=== PATIENT | female | born 1940 ===

== ENCOUNTER 2021-07-25 05:33 | Emergency (ER) | payer OTHER, BC ==
--- OUTSIDE RECORDS SUMMARY | 2021-07-25 05:44 | XMS REPORT | Continuity of Care Document ---
:1940 Author Organization [facility] t Address [address] [place] [address] Care Team Providers Name Role Phone Ines Quiles Primary Care Physician Moshe Mckeon Attending Clinician DR SUNDEEP Attending Clinician Unavailable QAMAR FLOR Attending Clinician Unavailable CORKY Attending Clinician Unavailable DR SUNDEEP Admitting Clinician Unavailable DR CHACHO OBREJI Admitting Clinician Unavailable Payers Payer Name Policy Type Policy Number Effective Date Expiration Date S ource Problems Condition Condition Condition Status Onset Resolution Last Treating Co mments Source Name Details Category Date Date Treatment Clinician Date FALL Diagnosis Active 2021-03-01 Mem oria 02-28 03:13:00 l FALL 00:00: [place] 00 Active 02/28/2021 [facility] FREQUENT Diagnosis Active 2021-03-02 M emoria FALLS 02-28 12:54:00 l FREQUENT 00:00: Johnny n FALLS 00 Active 02/28/2021 [facility] Pain in Pain in Problem Active [place] pelvis Pelvis 2-28 da 00:00: Medical 00 Group Vulval Vulval Problem Active [place] eczema Eczema 2-28 da 00:00: Medical 00 Group Pressure Pressure Problem Active [place] [facility] ulcer of Ulcer of 2-07 da ear Ear 00:00: Medical 00 Group Restless Restless Problem Active [place] [facility] legs Legs 8-21 da 00:00: Medical 00 Group Partial Partial Problem Active [place] obstructio Obstructio 8 da n of small n of Small 00:00: Me dical bowel Bowel 00 Group Thoracic Thoracic Problem Active [facility] [facility] back pain Back Pain 8 da 00:00: Medical Group Pain of Pain of Problem Active [place] left hip Left Hip 7 da joint Joint 00:00: Medical Group Persistent Persistent Problem Active M [facility] cough Cough 05-27 da 00:00: Medical Group Dyspareuni Dyspareuni Problem Active M [facility] a a 3 da 00:00: Medical Group 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 Vaginitis 3 da 00:00: Medical Group REPEATED Diagnosis Active 2021-03-02 M emoria FALLS 12:54:00 l REPEATED Johnny n FALLS Active [facility] Seizures Seizures Problem Active Unive rs [facility] [place] Phys[facility] ans No known No known Disease Unive rs active active ity of problems problems [facility] Hypothyroi Hypothyroi Problem Active M [facility] dism dism da Medical Group Hypovolemi Hypovolemi Problem Active [facility] a a [facility] Pernicious Pernicious Problem Active M [facility] anemia Anemia [facility] Low blood Low Blood Problem Active [facility] pressure Pressure da Medical Group Acute Acute Problem Active [place] pharyngiti Pharyngiti da s s Medical Group Pharyngiti Pharyngiti Problem Active M [facility] s s da Medical Group Upper Upper Problem Active [place] respirator Respirator da y y Medical infection Infection Grou p Bronchitis Bronchitis Problem Active [facility] Group Periapical Periapical Problem Active M [facility] abscess Abscess da without without Medical sinus Sinus Group tract Tract Urinary Urinary Problem Active [place] tract Tract da infectious Infectious Me dical disease Disease Group Cellulitis Cellulitis Problem Active [facility] 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 K[facility] Medical Group Hip pain Hip Pain Problem Active [facility] Muscle Muscle Problem Active [facility] pain Pain [facility] Fatigue Fatigue Problem Active [facility] Cough Cough Problem Active [facility] Superficia Superficia Problem Active M [facility] l injury l Injury da of lower of Lower Medica l limb Limb Group Disorder Disorder Problem Active [place] [facility] of trunk of [place] [facility] Allergies, Adverse Reactions, Alerts Allergy Allergy Status Severity Reaction(s) Onset Inactive Treating Comm ents Source Name Type Date Date Clinician Karey Neumanni Active Other - See 2016-11 [facility] U nivers in ty to comments 12-05 failure ity of adverse 00:00: [place] reaction 00 Medical s Branch Phenerga Allergy Active Moderate Other [facility] [facility] Vancomyc Allergy Active [facility] ADHESIVE Allergy Active [facility] TAPE [facility] Social History Social Habit Start Date Stop Date Quantity Comments Source Exposure to Not sure [facility] SARS-CoV-2 (event) Medica l Branch Tobacco use and 2021-07-12 2021-07-12 Never used [facility] exposure 00:00:00 00:00:00 [facility] Sex Ass[birth year] At [birth year] [facility] 00:00:00 00:00:00 [facility] Branch Smoking Status Start Date Stop Date Source Former smoker 2021-07-12 00:00:00 2021-07-12 00:00:00 [facility] [place] Medications Ordered Filled Start Stop Current Ordering Indication Dosage Frequency Signature Comments Components Source Medication Medication Date Date Medication? Clinician (SIG) Name Name clopidogreL Yes 75mg Take 75 mg Univers (PLAVIX) 75 07-12 by mouth ity of mg tablet 16:04: daily. [address] apixaban Yes 2.5mg Take 2.5 Univ ers (ELIQUIS) 9- mg by ity of 2.5 mg 16:04: mouth 2 [place] tablet 45 (two) Medical times Branch daily. aspirin 81 Yes 81mg Take 81 mg U nivers mg Cap 07-12 by mouth ity of 16:04: daily. [address] clopidogreL Yes 75mg Take 75 mg Univers (PLAVIX) 75 07-12 by mouth ity of mg tablet 16:04: daily. [address] apixaban Yes 2.5mg Take 2.5 Univ ers (ELIQUIS) 9- mg by ity of 2.5 mg 16:04: mouth 2 [place] tablet 45 (two) Medical times Branch daily. aspirin 81 2020-0 Yes 81mg Take 81 mg U nivers mg Cap 07-12 by mouth ity of 16:04: daily. [address] levETIRAcet levETIRAcet 2019-0 Yes HERMELINDA TAKE 1 Univers am 250 MG am 250 MG 4-23 FERRENDELL TABLET BY ity of Oral Tablet Oral Tablet 00:00: I M.D. MOUTH [place] 00 TWICE Physici DAILY ans diclofenac 2017-0 Yes 75mg Take 1 Unive rs 75 mg EC 6-29 tablet by ity of tablet 00:00: mouth 2 [place] 00 (two) Medical times Branch daily with meals. diclofenac 0 Yes 75mg Take 1 Unive rs 75 mg EC 6-29 tablet by ity of tablet 00:00: mouth 2 [place] (two) Medical times Branch daily with meals. metoprolol Yes 25mg Take 25 mg U nivers succinate 3-09 by mouth ity of XL 25 mg 24 14:38: [place]. [place] tablet 08 [facility] Branch clonazePAM Yes .5mg Take 0.5 Uni vers (KLONOPIN) 3-09 mg by ity of 0.5 mg 14:38: mouth 3 [place] tablet 08 (three) Medical times Branch daily. metoprolol Yes 25mg Take 25 mg U nivers succinate 3-09 by mouth ity of XL 25 mg 24 14:38: [place]. [place] tablet [address] [place] [address] clonazePAM Yes .5mg Take 0.5 Uni vers (KLONOPIN) 3-09 mg by ity of 0.5 mg 14:38: mouth 3 [place] tablet 08 (three) Medical times Branch daily. levothyroxi 2017- Yes TK 1 T PO U nivers ne 112 mcg 2-05 QD ity of tablet 00:00: [place] [facility] Branch levothyroxi 2017-0 Yes TK 1 T PO U nivers ne 112 mcg 2-05 QD ity of tablet 00:00: [place] [facility] Branch metoprolol 2017- Yes TK 1 T PO Un mesfin tartrate 25 1-07 BID ity of mg tablet 00:00: [place] [facility] Branch metoprolol 2017- Yes TK 1 T PO Un mesfin tartrate 25 -07 BID ity of mg tablet 00:00: [address] Branch albuterol albuterol No albuterol [place] sulfate HFA sulfate HFA sulfate da 90 90 HFA 90 Medical mcg/actuati mcg/actuati mcg/actuat Group on aerosol on aerosol ion inhaler inhaler aerosol INHALE 2 INHALE 2 inhaler PUFFS BY PUFFS BY INHALE 2 MOUTH EVERY MOUTH EVERY PUFFS BY 4 HOURS 4 HOURS MOUTH NEEDED FOR NEEDED FOR EVERY 4 30 DAYS. 30 DAYS. HOURS NEEDED FOR 30 DAYS. amiodarone amiodarone No amiodarone [place] 200 mg 200 mg 200 mg da tablet TAKE tablet TAKE tablet Medical ONE (1) ONE (1) TAKE ONE Group TABLET(S) TABLET(S) (1) BY MOUTH BY MOUTH TABLET(S) EVERY DAY. EVERY DAY. BY MOUTH EVERY DAY. aspirin 81 aspirin 81 No 1 Q1D aspirin 81 [place] mg mg mg da tablet,josesito tablet,josesito tablet,del Medical yed release yed release ayed G roup Take 1 Take 1 release tablet tablet Take 1 every day every day tablet by oral by oral every day route. route. by oral route. atorvastati atorvastati No atorvastat [place] n 40 mg n 40 mg in 40 mg da tablet TAKE tablet TAKE tablet Medical ONE (1) ONE (1) TAKE ONE Group TABLET(S) TABLET(S) (1) BY MOUTH BY MOUTH TABLET(S) ONCE A DAY. ONCE A DAY. BY MOUTH ONCE A DAY. clonazepam clonazepam No clonazepam [place] 1 mg tablet 1 mg tablet 1 mg d a TAKE 1 TAKE 1 tablet Medical TABLET BY TABLET BY TAKE 1 Michelle up MOUTH THREE MOUTH THREE TABLET BY TIMES A DAY TIMES A DAY MOUTH THREE TIMES A DAY clopidogrel clopidogrel No clopidogre [place] 75 mg 75 mg l 75 mg da tablet one tablet one tablet one Medical tab po qd tab po qd tab po qd Group Eliquis 2.5 Eliquis 2.5 No Eliquis [place] mg tablet mg tablet 2.5 mg da TAKE 1 TAKE 1 tablet Medical TABLET BY TABLET BY TAKE 1 Michelle up MOUTH TWICE MOUTH TWICE TABLET BY A DAY A DAY MOUTH TWICE A DAY furosemide furosemide No furosemide [place] 20 mg 20 mg 20 mg da tablet TAKE tablet TAKE tablet Medical 1 TABLET BY 1 TABLET BY TAKE 1 Group MOUTH EVERY MOUTH EVERY TABLET BY DAY DAY MOUTH EVERY DAY gabapentin gabapentin No gabapentin [place] 300 mg 300 mg 300 mg da capsule capsule capsule Medica l TAKE 1 TAKE 1 TAKE 1 Group CAPSULE BY CAPSULE BY CAPSULE BY MOUTH TWICE MOUTH TWICE MOUTH DAILY FOR DAILY FOR TWICE 90 DAYS 90 DAYS DAILY FOR 90 DAYS hydroxyzine hydroxyzine No hydroxyzin [place] pamoate 25 pamoate 25 e pamoate da mg capsule mg capsule 25 mg Me dical TAKE 1 TAKE 1 capsule Group CAPSULE BY CAPSULE BY TAKE 1 MOUTH EVERY MOUTH EVERY CAPSULE BY DAY DAY MOUTH NEEDED NEEDED EVERY DAY NEEDED levetiracet levetiracet No levetirace [place] am 250 mg am 250 mg guzman 250 mg da tablet TAKE tablet TAKE tablet Medical ONE (1) ONE (1) TAKE ONE Group TABLET(S) TABLET(S) (1) BY MOUTH BY MOUTH TABLET(S) TWICE A TWICE A BY MOUTH DAY. DAY. TWICE A DAY. levothyroxi levothyroxi No levothyrox [place] ne 88 mcg ne 88 mcg ine 88 mcg da tablet TAKE tablet TAKE tablet Medical 1 TABLET BY 1 TABLET BY TAKE 1 Group MOUTH EVERY MOUTH EVERY TABLET BY DAY DAY MOUTH EVERY DAY nitrofurant nitrofurant No nitrofuran [place] oin oin toin da monohydrate monohydrate monohydrat Medical /macrocryst /macrocryst e/macrocry Group als 100 mg als 100 mg stals 100 capsule capsule mg capsule Take 1 Take 1 Take 1 capsule capsule capsule every 12 every 12 every 12 hours by hours by hours by oral route oral route oral route for 7 days. for 7 days. for 7 days. nystatin nystatin No nystatin [place] 100,000 100,000 100,000 da unit/gram unit/gram unit/gram Medical topical topical topical Group cream APPLY cream APPLY cream TO AFFECTED TO AFFECTED APPLY TO AREA TWICE AREA TWICE AFFECTED A DAY A DAY AREA TWICE A DAY pantoprazol pantoprazol No pantoprazo [place] e 40 mg e 40 mg le 40 mg da tablet,josesito tablet,josesito tablet,del Medical yed release yed release ayed G roup TAKE 1 TAKE 1 release TABLET BY TABLET BY TAKE 1 MOUTH EVERY MOUTH EVERY TABLET BY DAY DAY MOUTH EVERY DAY potassium potassium No potassium [place] chloride ER chloride ER chloride da 10 mEq 10 mEq ER 10 mEq Medica l capsule,ext capsule,ext capsule,ex Group ended ended tended release release release TAKE 1 TAKE 1 TAKE 1 CAPSULE BY CAPSULE BY CAPSULE BY MOUTH EVERY MOUTH EVERY MOUTH DAY DAY EVERY DAY tobramycin tobramycin No tobramycin [place] 0.3 % eye 0.3 % eye 0.3 % eye da drops drops drops Medical INSTILL ONE INSTILL ONE INSTILL Group (1) DROP (1) DROP ONE (1) INTO INTO DROP INTO AFFECTED AFFECTED AFFECTED EYE(S) BY EYE(S) BY EYE(S) BY OPHTHALMIC OPHTHALMIC OPHTHALMIC ROUTE EVERY ROUTE EVERY ROUTE 1 HOUR FOR 1 HOUR FOR EVERY 1 4 HOURS, 4 HOURS, HOUR FOR 4 THEN 1 DROP THEN 1 DROP HOURS, EVERY 4 EVERY 4 THEN 1 HOURS WHILE HOURS WHILE DROP EVERY AWAKE. AWAKE. 4 HOURS WHILE AWAKE. Vitamin D3 Vitamin D3 No Vitamin D3 [place] (calcium (calcium (calcium da cit-phos) cit-phos) cit-phos) Medical 800 I.U. 800 I.U. 800 I.U. Michelle up tid tid tid Immunizations Ordered Immunization Filled Immunization Date Status Commen ts Source Name Name Tdap Tdap 2021-03-25 Completed [place] 00:00:00 Medical Group influenza, influenza, 2019-08-11 Completed [place] injectable, injectable, 00:00:00 Medical Grou p quadrivalent quadrivalent influenza, high dose influenza, high dose 2013-08-26 Completed [place] seasonal seasonal 00:00:00 Medical Group zoster live zoster live 2013-08-26 Completed [place] 00:00:00 Medical Group pneumococcal pneumococcal 2010-11-13 Completed [place] polysaccharide PPV23 polysaccharide PPV23 00:00:00 Medical Group Vital Signs Vital Name Observation Time Observation Value Comments Source Height 2021-07-24 00:00:00 65 [in_i] [facility] BMI (Body Mass 2021-07-24 00:00:00 21 kg/m2 [facility] clinician Medical Index) Group Body Weight 2021-07-24 00:00:00 2016 [oz_av] [facility] Systolic blood 2021-07-12 14:37:00 98 mm[Hg] Univer tadeoy of pressure [facility] Diastolic blood 2021-07-12 14:37:00 58 mm[Hg] Unive [facility] Heart rate 2021-07-12 14:37:00 75 /min [facility] Body temperature 2021-07-12 14:37:00 36.28 Jaki [facility] Respiratory rate 2021-07-12 14:37:00 16 /min [facility] Body height 2021-07-12 14:37:00 165.1 cm [facility] Body weight 2021-07-12 14:37:00 55.792 kg [facility] BMI 2021-07-12 14:37:00 20.47 kg/m2 [facility] Oxygen saturation in 2021-07-12 14:37:00 96 /min [facility] Arterial blood by [facility] Pulse oximetry Branch BP Diastolic 2021-06-19 00:00:00 55 mm[Hg] [facility] Height 2021-06-19 00:00:00 65 [in_i] [facility] BMI (Body Mass 2021-06-19 00:00:00 21.1 kg/m2 [facility] Medical Index) Group BP Systolic 2021-06-19 00:00:00 125 mm[Hg] [facility] Body Weight 2021-06-19 00:00:00 126.9 [lb_av] [facility] BP Diastolic 2021-05-31 00:00:00 61 mm[Hg] [facility] Height 2021-05-31 00:00:00 65 [in_i] [facility] BMI (Body Mass 2021-05-31 00:00:00 21.2 kg/m2 [facility] Medical Index) Group BP Systolic 2021-05-31 00:00:00 127 mm[Hg] [facility] Body Weight 2021-05-31 00:00:00 2038 [oz_av] [facility] Height 2021-03-22 00:00:00 65 [in_i] [facility] BMI (Body Mass 2021-03-22 00:00:00 20.8 kg/m2 [facility] rn clinician Medical Index) Group Body Weight 2021-03-22 00:00:00 2000 [oz_av] [facility] BP Diastolic 2021-02-06 00:00:00 63 mm[Hg] [facility] Height 2021-02-06 00:00:00 65 [in_i] [facility] BMI (Body Mass 2021-02-06 00:00:00 20.9 kg/m2 [facility] Medical Index) Group BP Systolic 2021-02-06 00:00:00 116 mm[Hg] [facility] Body Weight 2021-02-06 00:00:00 125.3 [lb_av] [facility] Height 2021-01-16 00:00:00 65 [in_i] [facility] BMI (Body Mass 2021-01-16 00:00:00 20 kg/m2 [facility] Medical Index) Group Body Weight 2021-01-16 00:00:00 1920 [oz_av] [facility] Height 2020-12-01 00:00:00 65 [in_i] [facility] BMI (Body Mass 2020-12-01 00:00:00 20 kg/m2 [facility] Medical Index) Group Body Weight 2020-12-01 00:00:00 1920 [oz_av] [facility] Height 2020-11-08 00:00:00 65 [in_i] [facility] BMI (Body Mass 2020-11-08 00:00:00 20 kg/m2 [facility] Medical Index) Group Body Weight 2020-11-08 00:00:00 1920 [oz_av] [facility] Height 2020-08-30 00:00:00 65 [in_i] [facility] BMI (Body Mass 2020-08-30 00:00:00 20 kg/m2 [facility] Medical Index) Group Body Weight 2020-08-30 00:00:00 1920 [oz_av] [facility] Height 2020-08-15 00:00:00 65 [in_i] [facility] BMI (Body Mass 2020-08-15 00:00:00 20 kg/m2 [facility] Medical Index) Group Body Weight 2020-08-15 00:00:00 1920 [oz_av] [facility] BP Diastolic 2020-01-21 00:00:00 64 mm[Hg] [facility] Height 2020-01-21 00:00:00 65 [in_i] [facility] BMI (Body Mass 2020-01-21 00:00:00 21 kg/m2 [facility] rn clinician Medical Index) Group BP Systolic 2020-01-21 00:00:00 110 mm[Hg] [facility] Body Weight 2020-01-21 00:00:00 126 [lb_av] [facility] BP Diastolic 2020-01-18 00:00:00 62 mm[Hg] [facility] Height 2020-01-18 00:00:00 65 [in_i] [facility] BMI (Body Mass 2020-01-18 00:00:00 21.1 kg/m2 [facility] rn clinician Medical Index) Group BP Systolic 2020-01-18 00:00:00 106 mm[Hg] [facility] Body Weight 2020-01-18 00:00:00 2024 [oz_av] [facility] BP Diastolic 2020-01-07 00:00:00 67 mm[Hg] [facility] Height 2020-01-07 00:00:00 65 [in_i] [facility] BMI (Body Mass 2020-01-07 00:00:00 20.8 kg/m2 [facility] rn clinician Medical Index) Group BP Systolic 2020-01-07 00:00:00 117 mm[Hg] [facility] Body Weight 2020-01-07 00:00:00 124.7 [lb_av] [facility] BP Diastolic 2019-10-27 00:00:00 61 mm[Hg] [facility] Height 2019-10-27 00:00:00 65 [in_i] [facility] BMI (Body Mass 2019-10-27 00:00:00 20 kg/m2 [facility] rn clinician Medical Index) Group BP Systolic 2019-10-27 00:00:00 103 mm[Hg] [facility] Body Weight 2019-10-27 00:00:00 1923 [oz_av] [facility] BP Diastolic 2019-10-05 00:00:00 74 mm[Hg] [facility] Height 2019-10-05 00:00:00 65 [in_i] [facility] BMI (Body Mass 2019-10-05 00:00:00 20.5 kg/m2 [facility] Medical Index) Group BP Systolic 2019-10-05 00:00:00 130 mm[Hg] [facility] Body Weight 2019-10-05 00:00:00 1969 [oz_av] [facility] BP Diastolic 2019-08-10 00:00:00 67 mm[Hg] [facility] Height 2019-08-10 00:00:00 65 [in_i] [facility] BMI (Body Mass 2019-08-10 00:00:00 20.7 kg/m2 [facility] Medical Index) Group BP Systolic 2019-08-10 00:00:00 115 mm[Hg] [facility] Body Weight 2019-08-10 00:00:00 1993 [oz_av] [facility] BP Diastolic 2019-06-11 00:00:00 64 mm[Hg] [facility] Height 2019-06-11 00:00:00 65 [in_i] [facility] BMI (Body Mass 2019-06-11 00:00:00 20 kg/m2 [facility] Medical Index) Group BP Systolic 2019-06-11 00:00:00 113 mm[Hg] [facility] Body Weight 2019-06-11 00:00:00 120 [lb_av] [facility] BP Diastolic 2019-06-09 00:00:00 60 mm[Hg] [facility] Height 2019-06-09 00:00:00 65 [in_i] [facility] BMI (Body Mass 2019-06-09 00:00:00 20.3 kg/m2 [facility] Medical Index) Group BP Systolic 2019-06-09 00:00:00 111 mm[Hg] [facility] Body Weight 2019-06-09 00:00:00 1947.2 [oz_av] [facility] Medical Group BP Diastolic 2019-05-12 00:00:00 71 mm[Hg] [facility] Height 2019-05-12 00:00:00 65 [in_i] [facility] BMI (Body Mass 2019-05-12 00:00:00 19.3 kg/m2 [facility] rn clinician Medical Index) Group BP Systolic 2019-05-12 00:00:00 118 mm[Hg] [facility] Body Weight 2019-05-12 00:00:00 1856 [oz_av] [facility] BP Diastolic 2019-04-09 00:00:00 76 mm[Hg] [facility] Height 2019-04-09 00:00:00 65 [in_i] [facility] BMI (Body Mass 2019-04-09 00:00:00 21 kg/m2 [facility] rn clinician Medical Index) Group BP Systolic 2019-04-09 00:00:00 132 mm[Hg] [facility] Body Weight 2019-04-09 00:00:00 126 [lb_av] [facility] BP Diastolic 2019-03-03 00:00:00 74 mm[Hg] [facility] Height 2019-03-03 00:00:00 65 [in_i] [facility] BMI (Body Mass 2019-03-03 00:00:00 21 kg/m2 [facility] rn clinician Medical Index) Group BP Systolic 2019-03-03 00:00:00 126 mm[Hg] [facility] Body Weight 2019-03-03 00:00:00 2016 [oz_av] [facility] BP Diastolic 2019-02-26 00:00:00 65 mm[Hg] [facility] Height 2019-02-26 00:00:00 65 [in_i] [facility] BMI (Body Mass 2019-02-26 00:00:00 21 kg/m2 [facility] rn clinician Medical Index) Group BP Systolic 2019-02-26 00:00:00 102 mm[Hg] [facility] Body Weight 2019-02-26 00:00:00 2019 [oz_av] [facility] BP Diastolic 2019-02-03 00:00:00 62 mm[Hg] [facility] Height 2019-02-03 00:00:00 65 [in_i] [facility] BMI (Body Mass 2019-02-03 00:00:00 21.2 kg[facility] BP Systolic 2019-02-03 00:00:00 141 mm[Hg] [facility] Body Weight 2019-02-03 00:00:00 2037 [oz_av] [facility] BP Diastolic 2019-01-21 00:00:00 52 mm[Hg] [facility] Height 2019-01-21 00:00:00 65 [in_i] [facility] BMI (Body Mass 2019-01-21 00:00:00 20.8 kg/m2 [facility] BP Systolic 2019-01-21 00:00:00 113 mm[Hg] [facility] Body Weight 2019-01-21 00:00:00 2000 [oz_av] [facility] BP Diastolic 2019-01-01 00:00:00 66 mm[Hg] [facility] Height 2019-01-01 00:00:00 65 [in_i] [facility] BMI (Body Mass 2019-01-01 00:00:00 20.7 kg/m2 [facility] BP Systolic 2019-01-01 00:00:00 106 mm[Hg] [facility] Body Weight 2019-01-01 00:00:00 1991 [oz_av] [facility] BP Diastolic 2018-12-05 00:00:00 63 mm[Hg] [facility] Height 2018-12-05 00:00:00 65 [in_i] [facility] BMI (Body Mass 2018-12-05 00:00:00 20.2 kg/m2 [facility] BP Systolic 2018-12-05 00:00:00 116 mm[Hg] [facility] Body Weight 2018-12-05 00:00:00 1941 [oz_av] [facility] Procedures Procedure Date / Time Performing Clinician Source Performed POCT URINALYSIS AUTO 2021-07-12 15:33:00 Julia Matson [facility] CT, thoracic spine, w/o 2021-06-02 00:00:00 Jose C mancia [facility] contrast [facility] MRI, thoracic spine, w/o 2021-06-01 00:00:00 [facility] XR, ankle 2021-05-31 00:00:00 [facility] XR, thoracic spine 2021-05-31 00:00:00 [facility] XR, abdomen 2020-11-08 00:00:00 [facility] XR, hip, unilateral 2020-08-19 00:00:00 [facility] Procedure on Heart 2020-04-11 00:00:00 [facility] XR, foot 2019-06-09 00:00:[address] [facility] [address] [address], pelvis, w/o contrast 2019-03-03 00:00:00 [facility] Shoulder Joint Surgery [facility] Removal of Thyroid [facility] Bladder Suspension [facility] Oophorectomy [facility] Partial Hysterectomy [facility] Correction of Scoliosis [facility] Procedure on Hip [facility] Hernia Repair [facility] Stomach Surgery Procedure [facility] Cholecystectomy [facility] Appendectomy [facility] Plan of Care Planned Activity Planned Date Details Comments Source Future Appointment 2021-08-23 Reginald Krueger 00:00:[address] [place] [address] 201; , [place] [address] Encounters Start End Encounter Admission Attending Care Care Encounter Source Date/Time Date/Time Type Type Clinicians Facility Department ID 2021-07-25 Outpatient [id number] Memoria 05:36:05 [id number] Syed [id number] 2021-07-24 2021-07-24 Umair MM [place] - [id number] [place] 00:00:00 00:00:00 [facility] MD: [address] [place] [address] [address], [place] [address] , Ph. 2021-07-14 2021-07-14 Case Gramm, [facility] [id number] Univers 00:00:00 00:00:00 Management Julia Sullivan [id number] [id number] [phone] Ar dical nal 204 [facility] 2021-07-12 2021-07-12 Office Gramm, [facility] [id number] Univers 09:07:49 10:57:16 Visit Julia Sullivan [id number] [id number] [phone] Ar dical nal 204 [facility] 2021-06-19 2021-06-19 Spencer [facility] [place] - [id number] [place] at[place] 00:00:00 00:00:00 Discovery marley Lawrence MD: [address] [place] [address] [address], [place] [address] , Ph. [phone] 2021-05-31 2021-05-31 Umair ACE[place] - [id number] [place] 00:00:00 00:00:00 Reagan Miles MD: [address] [place] [address] 201, [place] [address] , Ph. 2021-03-22 2021-03-22 Umair [facility] [place] - [id number] [place] 00:00:00 00:00:00 Reagan Miles MD: [address] [place] [address] 201, [place] [address] , Ph. 2021-02-06 2021-02-06 Spencer [place] - [id number] [place] 00:00:00 00:00:00 Discovery marley Lawrence MD: [address] [place] [address] 101, [place] [address] , Ph. [phone] 2021-01-16 2021-01-16 Umair [facility]G [place] - [id number] [place] 00:00:00 00:00:00 Reagan Miles Medical MD: [address] [place] [address] 201, [place] [address] , Ph. 2020-12-01 2020-12-01 Mariela MMG [place] - [id number] [place] 00:00:00 00:00:00 Amy Fonseca Medical Medical CRYSTAL SLICER: [address] [place] [address], [place] [address] , Ph. 2020-11-08 2020-11-08 Umair [facility] [place] - [id number] [place] 00:00:00 00:00:00 Reagan Miles MD: [address] [place] [address] 201, [place] [address] , Ph. 2020-08-30 2020-08-30 Umair [facility] [place] - [id number] [place] 00:00:00 00:00:00 Reagan Miles Medical MD: [address] [place] [address] 201, [place] [address] , Ph. 2020-08-15 2020-08-15 Umair MM [place] - [id number] [place] 00:00:00 00:00:00 Reagan Miles Medical MD: [address] [place] [address] 201, [place] [address] , Ph. 2020-07-26 2020-07-26 Outpatient Anamika URBANO [facility] [id number] [place] 09:30:00 09:30:00 [facility] 2020-07-15 2020-07-19 Inpatient Anisa FLOR [facility] [id number] [place] 00:53:00 16:11:[address] [facility] 2020-03-08 2020-03-08 [facility] CORKY [facility] - [id number] Univers 12:30:00 12:30:00 barbara , Lucas SHEN M.D. [facility] HERMELINDA [place] Amrit dawkins M.D. [facility] 2020-02-25 2020-02-25 Umair ACE[place] - [id number] [place] 00:00:00 00:00:00 Armani Motta Medical Medical MD: [address] [place] [address] 201, [place] [address] , Ph. 2020-02-16 2020-02-16 Umair ACE[place] - [id number] [place] 00:00:00 00:00:00 Reagan Miles Medical MD: [address] [place] [address] 201, [place] [address] , Ph. 2020-01-21 2020-01-21 Magdy ACE[place] - [id number] [place] 00:00:00 00:00:00 Robert Jin MD: Medical Medica l [address] [place] [address] [address], [place] [address] , Ph. [phone] 2020-01-18 2020-01-18 Umair ACE[place] - [id number] [place] 00:00:00 00:00:00 Reagan Miles Medical MD: [address] [place] [address] 201, [place] [address] , Ph. 2020-01-07 2020-01-07 Moriah Hernandez [facility] [place] - [id number] [place] 00:00:00 00:00:00 Discovery Edouard Bolivar: [facility] [place] 2[place] Medical Medica [facility] [address], [place] [address] , Ph. [phone] 2019-10-27 2019-10-27 Umair ACE[place] - [id number] [place] 00:00:00 00:00:00 Reagan Miles MD: [address] [place] [address] Family [address], [place] [address] , Ph. 2019-10-05 2019-10-05 Umair [facility] [place] - [id number] [place] 00:00:00 00:00:00 Reagan Miles MD: [address] [place] [address] [address], [place] [address] , Ph. 2019-08-10 2019-08-10 Umair [facility] [place] - [id number] [place] 00:00:00 00:00:00 Reagan Miles MD: [address] [place] [address] [address], [place] [address] , Ph. 2019-06-11 2019-06-11 Magdy [facility] [place] - [id number] [place] 00:00:00 00:00:00 Robert Jin MD: Medical Medica l [address] [place] [address], General [address], [place] [address] , Ph. [phone] 2019-06-09 2019-06-09 Umair [facility] [place] - [id number] [place] 00:00:00 00:00:00 Reagan Miles MD: [address] [place] [address] [address], [place] [address] , Ph. 2019-05-12 2019-05-12 Umair [facility] [place] - [id number] [place] 00:00:00 00:00:00 Reagan Miles MD: [address] [place] [address] Family [address], [place] [address] , Ph. 2019-04-09 2019-04-09 Magdy [place] - [id number] [place] 00:00:00 00:00:00 Robert Jin MD: Medical Medica l [address] [place] [address], General [address], [place] [address] , Ph. [phone] 2019-03-03 2019-03-03 Umair ACE[place] - [id number] [place] 00:00:00 00:00:00 Reagan Miles MD: [address] [place] [address], Family [address], [place] [address] , Ph. 2019-02-26 2019-02-26 Umair ACE[place] - [id number] [place] 00:00:00 00:00:00 Reagan Miles MD: [address] [place] [address], Family [address], [place] [address] , Ph. 2019-02-03 2019-02-03 Umair ACE[place] - [id number] [place] 00:00:00 00:00:00 Reagan Miels MD: [address] [place] [address], Family [address], [place] [address] , Ph. 2019-01-21 2019-01-21 Umair ACE[place] - [id number] [place] 00:00:00 00:00:00 Reagan Miles MD: [address] [place] [address], Family [address], [place] [address] , Ph. 2019-01-01 2019-01-01 Umair ACE[place] - [id number] [place] 00:00:00 00:00:00 Reagan Miles MD: [address] [place] [address], Family [address], [place] [address] , Ph. 2018-12-05 2018-12-05 Umair ACE[place] - [id number] [place] 00:00:00 00:00:00 Reagan Miles MD: [address] [place] [address], Family [address], [place] [address] , Ph. Results Test Description Test Time Test Comments Results Result Comments Source CBC W Auto Differential panel - Blood 2021-07-23 03:05:00 Test Item Value Reference Range Interpretation Comme nts white blood count (test code = white blood count) 7.2 K/uL 4.0- 11.5 red blood count (test code = red blood count) 3.10 M/uL 3.80-5.2 0 L hemoglobin (test code = hemoglobin) 10.5 g/dL 10.5-15.7 hematocrit (test code = hematocrit) 32.9 % 34.0-50.0 L MCV [Entitic volume] (test code = 45712-4) 106.1 fL 86-100 H mean corpuscular hemoglobin (test code = mean corpuscular 33.9 pg 26.2-33.4 H hemoglobin) mean corpuscular HGB conc (test code = mean corpuscular HGB 31.9 g/ dL 30-34 conc) red cell distribution width (test code = red cell 14.1 % 12.0 -15.5 distribution width) platelet count (test code = platelet count) 279 K/uL 165-450 mean platelet volume (test code = mean platelet volume) 9.3 fL 9.4-12.6 L Segmented neutrophils/100 leukocytes in Blood (test code = 51.4 % 44.4-80.1 09301-9) Immature granulocytes [#/volume] in Blood (test code = 0.1 K/uL 0.0-0.03 H 70389-8) lymphocyte% (test code = lymphocyte%) 29.7 % 10.0-50.0 mono % (test code = mono %) 12.5 % 3.6-12.0 H eos % (test code = eos %) 5.0 % 0.0-5.4 Basophils/100 leukocytes in Unspecified specimen (test code 0.7 % 0.1-1.2 = 39879-1) Band form neutrophils [#/volume] in Blood (test code = 3.69 K/uL 1.56-6.13 51055-6) Lymphocytes [#/volume] in Unspecified specimen by Automated 2.1 K/u L 1.18-3.74 count (test code = 40228-0) mono # (test code = mono #) 0.90 K/uL 0.24-0.86 H eos # (test code = eos #) 0.36 K/uL 0.04-0.36 basophil # (test code = basophil #) 0.05 K/uL 0.01-0.08 NRBC% (test code = NRBC%) 0 /100 WBC 0-0.2 NRBC# (test code = NRBC#) 0 K/uL [facility] [id number] 03:05:00 Test Item Value Reference Range Interpretation Comments Color of Urine by Auto (test light yellow code = 17013-8) Appearance of Urine (test code clear clear = 5767-9) Glucose [Presence] in Urine by negative negative Automated test strip (test code = 96557-4) Bilirubin.total [Mass/volume] negative negative in Urine (test code = 1978-6) Ketones [Mass/volume] in Urine negative negative by Automated test strip (test code = 38595-2) Specific gravity of Urine by 1.014 1.003-1.030 Automated test strip (test code = 53370-1) blood urine (test code = blood =3 negative H urine) pH of Urine (test code = 5.500 5-9 2756-5) protein urine (UA) (test code = trace negative protein urine (UA)) Urobilinogen [Presence] in normal 0.2-1.0 Urine (test code = 35313-2) Nitrite [Presence] in Urine by negative negative Test strip (test code = 5802-4) Leukocyte esterase [Presence] =3 negative H in Urine by Automated test strip (test code = 76793-6) Erythrocytes [#/volume] in =30-49 0-5 H Urine by Automated count (test code = 798-9) Leukocytes [#/area] in Urine =15-19 0-5 H sediment by Automated count (test code = 78109-4) Epithelial cells [Presence] in =1-5 0-5 Urine sediment by Light microscopy (test code = 69854-7) Bacteria identified in Urine by none detected none detect Culture (test code = 630-4) Casts [#/area] in Urine =2-5 none detect sediment by Automated count (test code = 16373-4) urine culture added? (test code yes = urine culture added?) [facility] - [facility] or Plasma 2021-07-23 03:05:00 Test Item Value Reference Range Interpretation Comments Glucose [Mass/volume] in Serum or 78 mg/dL 82-115 L Plasma (test code = 2345-7) Urea nitrogen [Mass/volume] in 51 mg/dL 8-23 H Serum or Plasma (test code = 3094-0) osmolality calculated,serum (test 287 mOsm/kg 280-300 code = osmolality calculated,serum) creatinine (test code = 1.6 mg/dL 0.50-0.90 H creatinine) glomerular filtration rate (test 30.94 L code = glomerular filtration rate) Urea nitrogen/Creatinine [Mass 31.9 12-20 H Ratio] in Serum or Plasma (test code = 3097-3) sodium level (test code = sodium 137 mmol/L 135-145 level) potassium level (test code = 4.4 mmol/L 3.5-5.2 potassium level) chloride level (test code = 98 mmol/L 98-108 chloride level) CO2 (test code = CO2) 30 mmol/L 21-32 anion gap (test code = anion gap) 13.4 mEq/L 12-20 calcium level (test code = 8.7 mg/dL 8.8-10.2 L calcium level) total protein (test code = total 6.5 g/dL 6.6-8.7 L protein) albumin (test code = albumin) 3.6 g/dL 3.5-5.2 globulin (test code = globulin) 2.9 gm/dL A/G ratio (test code = A/G ratio) 1.2 >1.0 bilirubin,total (test code = <0.3 0.0-1.2 bilirubin,total) AST/SGOT (test code = AST/SGOT) 32 U/L 15-32 Alanine aminotransferase 39 U/L 0-33 H [Enzymatic activity/volume] in Serum or Plasma (test code = 1742-6) Alkaline phosphatase [Enzymatic 95 U/L 35-105 activity/volume] in Serum or Plasma (test code = 6768-6) [facility], method unspecified - [id number] 00:00:00NeutrophilsBandLymphocyteAtypical LymphMonocyteEosinophilBasophilMetamyelocyteDifferential CommentAbs Neutrophil Count (Man)Abs Lymph Count (Man)Abs Monocyte Count (Man)Abs Eosinophil Count (Man)Abs Basophil Count (Man)Platelet EstimatePlatelet MorphologyHypochromasiaAnisocytosisMicrocytosisMacrocytosisToxic GranulationHypersegmented PolysMatagoCrossbridge Behavioral Health GroupLactate [Mass/volume] in Serum or [id number] 00:00:00 Test Item Value Reference Range Interpretation Comments lactic acid (test code = lactic 0.69 mmol/L 0.5-2.2 acid) [facility] [Enzymatic activity/volume] in Serum or Plasma 2021-07-23 00:00:00 Test Item Value Reference Range Interpretation Comments Amylase [Enzymatic activity/volume] in 67 U/L 28-100 Serum or Plasma (test code = 1798-8) [facility] [Enzymatic activity/volume] in Serum or Plasma 2021-07-23 00:00:00 Test Item Value Reference Range Interpretation Comments lipase (test code = lipase) 36 U/L 13-60 [facility] kinase.MB [Mass/volume] in Serum or Plasma 2021-07-23 00:00:00 Test Item Value Reference Range Interpretation Comments Creatine kinase.MB [Mass/volume] in 1.4 NG/mL 0.0-3.6 Serum or Plasma by Immunoassay (test code = 54844-0) [facility] [Enzymatic activity/volume] in Serum or [id number] 00:00:00 Test Item Value Reference Range Interpretation Comments creatine kinase (test code = creatine 26 U/L 20-180 kinase) [facility] [id number] 00:00:00 Test Item Value Reference Range Interpretation Comments Troponin T.cardiac [Mass/volume] in <0.01 0-0.011 Blood (test code = 29460-5) [facility] - [id number] 03:57:00 Test Item Value Reference Range Interpretation Comments Color of Urine by Auto (test colorless code = 14428-8) Appearance of Urine (test code clear clear = 5767-9) Glucose [Presence] in Urine by negative negative Automated test strip (test code = 30757-0) Bilirubin.total [Mass/volume] negative negative in Urine (test code = 1978-6) Ketones [Mass/volume] in Urine negative negative by Automated test strip (test code = 59127-0) Specific gravity of Urine by 1.007 1.003-1.030 Automated test strip (test code = 91982-5) blood urine (test code = blood =3 negative H urine) pH of Urine (test code = 6.000 5-9 2756-5) protein urine (UA) (test code = negative negative protein urine (UA)) Urobilinogen [Presence] in normal 0.2-1.0 Urine (test code = 41496-0) Nitrite [Presence] in Urine by negative negative Test strip (test code = 5802-4) Leukocyte esterase [Presence] negative negative in Urine by Automated test strip (test code = 03480-4) Erythrocytes [#/volume] in >50 0-5 H Urine by Automated count (test code = 798-9) Leukocytes [#/area] in Urine <1 0-5 sediment by Automated count (test code = 52296-8) Epithelial cells [Presence] in <1 0-5 Urine sediment by Light microscopy (test code = 36942-4) Bacteria identified in Urine by none detected none detect Culture (test code = 630-4) Casts [#/area] in Urine none detected none detect sediment by Automated count (test code = 02404-4) urine culture added? (test code no = urine culture added?) [facility] W Auto Differential panel - [id number] 04:00:00 Test Item Value Reference Range Interpretation Comments white blood count (test code = 5.6 K/uL 4.0-11.5 white blood count) red blood count (test code = red 3.46 M/uL 3.80-5.20 L blood count) hemoglobin (test code = 11.5 g/dL 10.5-15.7 hemoglobin) hematocrit (test code = 36.9 % 34.0-50.0 hematocrit) MCV [Entitic volume] (test code = 106.6 fL 86-100 H 57679-8) mean corpuscular hemoglobin (test 33.2 pg 26.2-33.4 code = mean corpuscular hemoglobin) mean corpuscular HGB conc (test 31.2 g/dL 30-34 code = mean corpuscular HGB conc) red cell distribution width (test 14.7 % 12.0-15.5 code = red cell distribution width) platelet count (test code = 233 K/uL 165-450 platelet count) mean platelet volume (test code = 9.7 fL 9.4-12.6 mean platelet volume) Segmented neutrophils/100 59.3 % 44.4-80.1 leukocytes in Blood (test code = 94916-6) Immature granulocytes [#/volume] 0.0 K/uL 0.0-0.03 in Blood (test code = 72140-0) lymphocyte% (test code = 25.8 % 10.0-50.0 lymphocyte%) mono % (test code = mono %) 14.1 % 3.6-12.0 H eos % (test code = eos %) 0.2 % 0.0-5.4 Basophils/100 leukocytes in 0.4 % 0.1-1.2 Unspecified specimen (test code = 18690-5) Band form neutrophils [#/volume] 3.33 K/uL 1.56-6.13 in Blood (test code = 00703-0) Lymphocytes [#/volume] in 1.5 K/uL 1.18-3.74 Unspecified specimen by Automated count (test code = 36527-0) mono # (test code = mono #) 0.79 K/uL 0.24-0.86 eos # (test code = eos #) 0.01 K/uL 0.04-0.36 L basophil # (test code = basophil 0.02 K/uL 0.01-0.08 #) NRBC% (test code = NRBC%) 0 /100 WBC 0-0.2 NRBC# (test code = NRBC#) 0 K/uL [facility] metabolic 2000 panel - Serum or [id number] 04:00:00 Test Item Value Reference Range Interpretation Comments glucose (test code = glucose) 105 mg/dL 82-115 Urea nitrogen [Mass/volume] in 50 mg/dL 8-23 H Serum or Plasma (test code = 3094-0) osmolality calculated,serum (test 293 mOsm/kg 280-300 code = osmolality calculated,serum) creatinine (test code = 1.6 mg/dL 0.50-0.90 H creatinine) glomerular filtration rate (test 30.94 L code = glomerular filtration rate) Urea nitrogen/Creatinine [Mass 31.3 12-20 H Ratio] in Serum or Plasma (test code = 3097-3) sodium level (test code = sodium 140 mmol/L 135-145 level) Potassium [Moles/volume] in Body 4.1 mmol/L 3.5-5.2 fluid (test code = 2821-7) chloride level (test code = 98 mmol/L 98-108 chloride level) CO2 (test code = CO2) 26 mmol/L 21-32 anion gap (test code = anion gap) 20.1 mEq/L 12-20 H calcium level (test code = 9.5 mg/dL 8.8-10.2 calcium level) [facility] GroupUrinalysis complete panel - [id number] 03:13:00 Test Item Value Reference Range Interpretation Comments Color of Urine by Auto (test light yellow code = 52645-4) Appearance of Urine (test code = SL cloudy clear A 5767-9) Glucose [Presence] in Urine by negative negative Automated test strip (test code = 26244-8) Bilirubin.total [Mass/volume] in negative negative Urine (test code = 1977-6) Ketones [Mass/volume] in Urine negative negative by Automated test strip (test code = 86004-8) Specific gravity of Urine by 1.008 1.003-1.030 Automated test strip (test code = 38784-8) blood urine (test code = blood =3 negative H urine) pH of Urine (test code = 2756-5) 5.000 5-9 protein urine (UA) (test code = negative negative protein urine (UA)) Urobilinogen [Presence] in Urine normal 0.2-1.0 (test code = 57512-0) Nitrite [Presence] in Urine by positive negative H Test strip (test code = 5802-4) Leukocyte esterase [Presence] in =4 negative H Urine by Automated test strip (test code = 80692-6) Erythrocytes [#/volume] in Urine =6-10 0-5 H by Automated count (test code = 798-9) Leukocytes [#/area] in Urine >50 0-5 H sediment by Automated count (test code = 30903-6) Epithelial cells [Presence] in <1 0-5 Urine sediment by Light microscopy (test code = 16744-4) Bacteria identified in Urine by small(1 none detect Culture (test code = 630-4) Casts [#/area] in Urine sediment =20-29 none detect H by Automated count (test code = 57508-7) urine culture added? (test code yes = urine culture added?) [facility], method unspecified - [id number] 00:00:00NeutrophilsBandLymphocyteAtypical LymphMonocyteEosinophilBasophilMyelocyteBlastsNucleated Red Blood C ellDifferential CommentAbs Neutrophil Count (Man)Abs Lymph Count (Man)Abs Monocyte Count (Man)Abs Eosinophil Count (Man)Abs Basophil Count (Man)Platelet EstimatePlatelet MorphologyHypochromasiaPoikilocy tosisAnisocytosisMicrocytosisTarget CellsStomatocyteToxic GranulationBurr CellsRouleKPC Promise [facility] W Auto Differential panel - Blood 2021-07-15 04:41:00 Test Item Value Reference Range Interpretation Comments white blood count (test code = 4.4 K/uL 4.0-11.5 white blood count) red blood count (test code = red 3.18 M/uL 3.80-5.20 L blood count) hemoglobin (test code = 10.7 g/dL 10.5-15.7 hemoglobin) hematocrit (test code = 33.2 % 34.0-50.0 L hematocrit) MCV [Entitic volume] (test code = 104.4 fL 86-100 H 70077-5) mean corpuscular hemoglobin (test 33.6 pg 26.2-33.4 H code = mean corpuscular hemoglobin) mean corpuscular HGB conc (test 32.2 g/dL 30-34 code = mean corpuscular HGB conc) red cell distribution width (test 14.5 % 12.0-15.5 code = red cell distribution width) platelet count (test code = 218 K/uL 165-450 platelet count) mean platelet volume (test code = 9.2 fL 9.4-12.6 L mean platelet volume) Segmented neutrophils/100 80.6 % 44.4-80.1 leukocytes in Blood (test code = 65971-1) Immature granulocytes [#/volume] 0.0 K/uL 0.0-0.03 in Blood (test code = 90523-1) lymphocyte% (test code = 16.5 % 10.0-50.0 lymphocyte%) mono % (test code = mono %) 2.0 % 3.6-12.0 L eos % (test code = eos %) 0 % 0.0-5.4 Basophils/100 leukocytes in 0.7 % 0.1-1.2 Unspecified specimen (test code = 46404-5) Band form neutrophils [#/volume] 3.56 K/uL 1.56-6.13 in Blood (test code = 94884-9) Lymphocytes [#/volume] in 0.7 K/uL 1.18-3.74 L Unspecified specimen by Automated count (test code = 85098-2) mono # (test code = mono #) 0.09 K/uL 0.24-0.86 L eos # (test code = eos #) 0.00 K/uL 0.04-0.36 L basophil # (test code = basophil 0.03 K/uL 0.01-0.08 #) NRBC% (test code = NRBC%) 0 /100 WBC 0-0.2 NRBC# (test code = NRBC#) 0 K/uL [facility] metabolic 2000 panel - Serum or [id number] 04:41:00 Test Item Value Reference Range Interpretation Comments Glucose [Mass/volume] in Serum or 156 mg/dL 82-115 H Plasma (test code = 2345-7) Urea nitrogen [Mass/volume] in 40 mg/dL 8-23 H Serum or Plasma (test code = 3094-0) osmolality calculated,serum (test 294 mOsm/kg 280-300 code = osmolality calculated,serum) creatinine (test code = 1.4 mg/dL 0.50-0.90 H creatinine) glomerular filtration rate (test 36.09 L code = glomerular filtration rate) Urea nitrogen/Creatinine [Mass 28.6 12-20 H Ratio] in Serum or Plasma (test code = 3097-3) sodium level (test code = sodium 141 mmol/L 135-145 level) potassium level (test code = 4.5 mmol/L 3.5-5.2 potassium level) chloride level (test code = 102 mmol/L 98-108 chloride level) CO2 (test code = CO2) 26 mmol/L 21-32 anion gap (test code = anion gap) 17.5 mEq/L 12-20 calcium level (test code = 9.5 mg/dL 8.8-10.2 calcium level) [facility], method unspecified - [id number] 00:00:00NeutrophilsBandLymphocyteAtypical LymphMonocyteEosinophilBasophilMyelocyteNucleated Red Blood CellAbs Neutrophil Count (Man)Abs Lymph Count (Man)Abs Monocyte Count (Man)Abs Eosinophil Count (Man)Abs Basophil Count (Man)Platelet EstimatePlatelet MorphologyHypochromasiaPoikilocytosisAnisocytosisMicrocytosisTarget CellsStomatocyteToxic GranulationMatagoJefferson Davis Community HospitalARS-CoV-2 (COVID-19) RNA [Presence] in Respiratory specimen by [place] with probe [id number] 12:42:5929821-8QqsxfvgoxMem[facility] Auto Differential panel - Blood 2021-07-14 11:10:00 Test Item Value Reference Range Interpretation Comments white blood count (test code = 6.8 K/uL 4.0-11.5 white blood count) red blood count (test code = red 2.90 M/uL 3.80-5.20 L blood count) hemoglobin (test code = 9.7 g/dL 10.5-15.7 L hemoglobin) hematocrit (test code = 31.0 % 34.0-50.0 L hematocrit) MCV [Entitic volume] (test code = 106.9 fL 86-100 H 85850-8) mean corpuscular hemoglobin (test 33.4 pg 26.2-33.4 code = mean corpuscular hemoglobin) mean corpuscular HGB conc (test 31.3 g/dL 30-34 code = mean corpuscular HGB conc) red cell distribution width (test 14.7 % 12.0-15.5 code = red cell distribution width) platelet count (test code = 192 K/uL 165-450 platelet count) mean platelet volume (test code = 8.6 fL 9.4-12.6 L mean platelet volume) Segmented neutrophils/100 55.5 % 44.4-80.1 leukocytes in Blood (test code = 28142-1) Immature granulocytes [#/volume] 0.0 K/uL 0.0-0.03 in Blood (test code = 73455-0) lymphocyte% (test code = 25.6 % 10.0-50.0 lymphocyte%) mono % (test code = mono %) 15.1 % 3.6-12.0 H eos % (test code = eos %) 3.0 % 0.0-5.4 Basophils/100 leukocytes in 0.7 % 0.1-1.2 Unspecified specimen (test code = 64684-3) Band form neutrophils [#/volume] 3.74 K/uL 1.56-6.13 in Blood (test code = 17902-3) Lymphocytes [#/volume] in 1.7 K/uL 1.18-3.74 Unspecified specimen by Automated count (test code = 01331-4) mono # (test code = mono #) 1.02 K/uL 0.24-0.86 H eos # (test code = eos #) 0.20 K/uL 0.04-0.36 basophil # (test code = basophil 0.05 K/uL 0.01-0.08 #) NRBC% (test code = NRBC%) 0 /100 WBC 0-0.2 NRBC# (test code = NRBC#) 0 K/uL [facility] - Serum or Plasma 2021-07-14 11:10:00 Test Item Value Reference Range Interpretation Comments Glucose [Mass/volume] in Serum or 111 mg/dL 82-115 Plasma (test code = 2345-7) Urea nitrogen [Mass/volume] in 45 mg/dL 8-23 H Serum or Plasma (test code = 3094-0) osmolality calculated,serum (test 294 mOsm/kg 280-300 code = osmolality calculated,serum) creatinine (test code = 1.4 mg/dL 0.50-0.90 H creatinine) glomerular filtration rate (test 36.09 L code = glomerular filtration rate) Urea nitrogen/Creatinine [Mass 32.1 12-20 H Ratio] in Serum or Plasma (test code = 3097-3) sodium level (test code = sodium 141 mmol/L 135-145 level) potassium level (test code = 3.9 mmol/L 3.5-5.2 potassium level) chloride level (test code = 107 mmol/L 98-108 chloride level) CO2 (test code = CO2) 23 mmol/L 21-32 anion gap (test code = anion gap) 14.9 mEq/L 12-20 calcium level (test code = 8.7 mg/dL 8.8-10.2 L calcium level) total protein (test code = total 6.5 g/dL 6.6-8.7 L protein) albumin (test code = albumin) 3.4 g/dL 3.5-5.2 L globulin (test code = globulin) 3.1 gm/dL A/G ratio (test code = A/G ratio) 1.1 >1.0 bilirubin,total (test code = 0.3 mg/dL 0.0-1.2 bilirubin,total) AST/SGOT (test code = AST/SGOT) 36 U/L 15-32 H Alanine aminotransferase 29 U/L 0-33 [Enzymatic activity/volume] in Serum or Plasma (test code = 1742-6) Alkaline phosphatase [Enzymatic 68 U/L 35-105 activity/volume] in Serum or Plasma (test code = 6768-6) [facility] GroupUrinal[facility] complete [facility] - [id number] 10:10:00 Test Item Value Reference Range Interpretation Comments Color of Urine by Auto (test light yellow code = 75092-1) Appearance of Urine (test code = SL cloudy clear A 5767-9) Glucose [Presence] in Urine by negative negative Automated test strip (test code = 41560-2) Bilirubin.total [Mass/volume] in negative negative Urine (test code = 1978-6) Ketones [Mass/volume] in Urine negative negative by Automated test strip (test code = 45739-4) Specific gravity of Urine by 1.011 1.003-1.030 Automated test strip (test code = 65717-0) blood urine (test code = blood =1 negative H urine) pH of Urine (test code = 2756-5) 6.000 5-9 protein urine (UA) (test code = negative negative protein urine (UA)) Urobilinogen [Presence] in Urine normal 0.2-1.0 (test code = 63340-6) Nitrite [Presence] in Urine by negative negative Test strip (test code = 5802-4) Leukocyte esterase [Presence] in =4 negative H Urine by Automated test strip (test code = 34128-5) Erythrocytes [#/volume] in Urine =6-10 0-5 H by Automated count (test code = 798-9) Leukocytes [#/area] in Urine >50 0-5 H sediment by Automated count (test code = 36757-1) Epithelial cells [Presence] in <1 0-5 Urine sediment by Light microscopy (test code = 86098-1) Bacteria identified in Urine by trace none detect Culture (test code = 630-4) Casts [#/area] in Urine sediment =11-14 none detect H by Automated count (test code = 21155-1) urine culture added? (test code yes = urine culture added?) transitional epi cells, urine =0-5 0-5 (test code = transitional epi cells, urine) [facility] by [id number] 10:10:00[facility], [id number] 10:10:00 Test Item Value Reference Range Interpretation Comments Gentamicin [Susceptibility] by <=2 Minimum inhibitory concentration (YUNG) (test code = 267-5) Ampicillin [Susceptibility] by >16 Minimum inhibitory concentration (YUNG) (test code = 28-1) Trimethoprim+Sulfamethoxazole =0.5 [Susceptibility] by Minimum inhibitory concentration (YUNG) (test code = 516-5) Tetracycline [Susceptibility] by <=2 Minimum inhibitory concentration (YUNG) (test code = 496-0) Amoxicillin+Clavulanate =16/8 [Susceptibility] by Minimum inhibitory concentration (YUNG) (test code = 20-8) Tobramycin [Susceptibility] by <=2 Minimum inhibitory concentration (YUNG) (test code = 508-2) Nitrofurantoin [Susceptibility] by 32 ug/mL Minimum inhibitory concentration (YUNG) (test code = 363-2) cefOXitin [Susceptibility] by >16 Minimum inhibitory concentration (YUNG) (test code = 116-4) levoFLOXacin [Susceptibility] by <=0.5 Minimum inhibitory concentration (YUNG) (test code = 19870-3) cefTAZidime [Susceptibility] by >16 Minimum inhibitory concentration (YUNG) (test code = 133-9) cefTRIAXone [Susceptibility] by >32 Minimum inhibitory concentration (YUNG) (test code = 141-2) Ciprofloxacin [Susceptibility] by <=0.25 Minimum inhibitory concentration (YUNG) (test code = 185-9) Ampicillin+Sulbactam =16/8 [Susceptibility] by Minimum inhibitory concentration (YUNG) (test code = 32-3) Ertapenem [Susceptibility] by 1 ug/mL Minimum inhibitory concentration (YUNG) (test code = 18246-1) Aztreonam [Susceptibility] by >16 Minimum inhibitory concentration (YUNG) (test code = 44-8) Cefepime [Susceptibility] by Minimum 4 ug/mL inhibitory concentration (YUNG) (test code = 6644-9) Meropenem [Susceptibility] by <=0.5 Minimum inhibitory concentration (YUNG) (test code = 6652-2) Moxifloxacin [Susceptibility] by <=1 Minimum inhibitory concentration (YUNG) (test code = 34708-7) Amikacin [Susceptibility] by Minimum <=8 inhibitory concentration (YUNG) (test code = 12-5) Piperacillin+Tazobactam =64/4 [Susceptibility] by Minimum inhibitory concentration (YUNG) (test code = 412-7) Ceftaroline [Susceptibility] by >1 Minimum inhibitory concentration (YUNG) (test code = 05888-9) Tigecycline [Susceptibility] by <=1 Minimum inhibitory concentration (YUNG) (test code = 39305-6) [facility]Erythrocyte sedimentation [id number] 07:05:00 Test Item Value Reference Range Interpretation Comments erythrocyte sedimentation rate (test 41 mm/HR 0.00-20 H code = erythrocyte sedimentation rate) [facility] HospitalThyrotropin [Units/volume] in Serum or [id number] 04:14:00 Test Item Value Reference Range Interpretation Comments Thyrotropin [Units/volume] in 0.02 uIU/mL 0.36-3.74 L Serum or Plasma (test code = 3016-3) [facility]Differential panel, method unspecified - [id number] 00:00:00NeutrophilsBandLymphocyteAtypical LymphMonocyteEosinophilBasophilMyelocyteNucleated Red Blood CellAbs Neutrophil Count (Man)Abs Lymph Count (Man)Abs Monocyte Count (Man)Abs Eosinophil Count (Man)Abs Basophil Count (Man)Platelet EstimatePlatelet MorphologyPoikilocytosisAnisocytosisMatagoAlliance HospitalPT/[id number] 00:00:00 Test Item Value Reference Range Interpretation Comments prothrombin time (test code = 11.9 seconds 10.3-12.3 prothrombin time) INR in Blood by Coagulation 1.12 assay (test code = 64044-9) [facility]partial thromboplastin [id number] 00:00:00 Test Item Value Reference Range Interpretation Comments INR in Blood by Coagulation 31.2 seconds 22.5-37.0 assay (test code = 81474-3) [facility] HospitalCreatine kinase [Enzymatic activity/volume] in Serum or [id number] 00:00:00 Test Item Value Reference Range Interpretation Comments creatine kinase (test code = creatine 76 U/L 20-180 kinase) [facility] HospitalCreatine kinase.MB [Mass/volume] in Serum or Plasma 2021-07-14 00:00:00 Test Item Value Reference Range Interpretation Comments Creatine kinase.MB [Mass/volume] in 2.4 NG/mL 0.0-3.6 Serum or Plasma by Immunoassay (test code = 66468-3) [facility]alltrop [id number] 00:00:00 Test Item Value Reference Range Interpretation Comments Troponin T.cardiac [Mass/volume] in <0.01 0-0.011 Blood (test code = 01508-1) [facility]allprocal2021-[facility]-03 00:00:00 Test Item Value Reference Range Interpretation Comments Procalcitonin [Mass/volume] in 0.1 NG/mL 0.0-0.8 Serum or Plasma (test code = 60466-4) [facility] [id number] 00:00:00 Test Item Value Reference Range Interpretation Comments Troponin T.cardiac [Mass/volume] in <0.01 0-0.011 Blood (test code = 34388-7) [facility] HospitalPOCT URINALYSIS, [id number] 15:34:00 Test Item Value Reference Range Interpretation Comments POCT U SP GRAV (test code = 1.010 mg/dl 1.005-1.025 3255) POCT PH U (test code = 3254) 5.0 mg/dl 5-8 POCT U LEUK EST (test code = Trace Negative - Negative 3263) POCT U NIT (test code = Postivie Negative - Negative 3262) POCT U PROT (test code = Negative Negative - Negative 3259) POCT U GLU (test code = Negative Negative - Negative 3256) POCT U KETONE (test code = Negative Negative - Negative 3258) POCT U UROBILI (test code = 0.2 mg/dl 0.2-1 3260) POCT U BILI (test code = Negative Negative - Negative 3261) POCT U BLD (test code = Trace-lysed Negative - Negative 3257) POCT U COLOR (test code = Light yellow 3266) POCT U APPEAR (test code = cloudy 3267) Lab Interpretation (test Abnormal code = 57005-7) [facility] W Auto Differential panel - Blood 2021-07-11 07:15:00 Test Item Value Reference Range Interpretation Comments white blood count (test code = 6.0 K/uL 4.0-11.5 white blood count) red blood count (test code = red 3.03 M/uL 3.80-5.20 L blood count) hemoglobin (test code = 10.2 g/dL 10.5-15.7 L hemoglobin) hematocrit (test code = 31.9 % 34.0-50.0 L hematocrit) MCV [Entitic volume] (test code = 105.3 fL 86-100 H 72628-4) mean corpuscular hemoglobin (test 33.7 pg 26.2-33.4 H code = mean corpuscular hemoglobin) mean corpuscular HGB conc (test 32.0 g/dL 30-34 code = mean corpuscular HGB conc) red cell distribution width (test 14.5 % 12.0-15.5 code = red cell distribution width) platelet count (test code = 199 K/uL 165-450 platelet count) mean platelet volume (test code = 9.2 fL 9.4-12.6 L mean platelet volume) Segmented neutrophils/100 52.1 % 44.4-80.1 leukocytes in Blood (test code = 98144-6) Immature granulocytes [#/volume] 0.0 K/uL 0.0-0.03 in Blood (test code = 41146-3) lymphocyte% (test code = 29.2 % 10.0-50.0 lymphocyte%) mono % (test code = mono %) 12.6 % 3.6-12.0 H eos % (test code = eos %) 5.0 % 0.0-5.4 Basophils/100 leukocytes in 0.8 % 0.1-1.2 Unspecified specimen (test code = 84055-6) Band form neutrophils [#/volume] 3.10 K/uL 1.56-6.13 in Blood (test code = 05483-6) Lymphocytes [#/volume] in 1.7 K/uL 1.18-3.74 Unspecified specimen by Automated count (test code = 38094-7) mono # (test code = mono #) 0.75 K/uL 0.24-0.86 eos # (test code = eos #) 0.30 K/uL 0.04-0.36 basophil # (test code = basophil 0.05 K/uL 0.01-0.08 #) NRBC% (test code = NRBC%) 0 /100 WBC 0-0.2 NRBC# (test code = NRBC#) 0 K/uL [facility] HospitalComprehensive [facility] 2000 panel - Serum or Plasma 2021-07-11 07:15:00 Test Item Value Reference Range Interpretation Comments glucose (test code = glucose) 97 mg/dL 82-115 Urea nitrogen [Mass/volume] in 50 mg/dL 8-23 H Serum or Plasma (test code = 3094-0) osmolality calculated,serum (test 284 mOsm/kg 280-300 code = osmolality calculated,serum) creatinine (test code = 1.6 mg/dL 0.50-0.90 H creatinine) glomerular filtration rate (test 30.94 L code = glomerular filtration rate) Urea nitrogen/Creatinine [Mass 31.3 12-20 H Ratio] in Serum or Plasma (test code = 3097-3) sodium level (test code = sodium 135 mmol/L 135-145 level) Potassium [Moles/volume] in Body 4.8 mmol/L 3.5-5.2 fluid (test code = 2821-7) chloride level (test code = 100 mmol/L 98-108 chloride level) CO2 (test code = CO2) 21 mmol/L 21-32 anion gap (test code = anion gap) 18.8 mEq/L 12-20 calcium level (test code = 8.5 mg/dL 8.8-10.2 L calcium level) total protein (test code = total 6.8 g/dL 6.6-8.7 protein) albumin (test code = albumin) 3.7 g/dL 3.5-5.2 globulin (test code = globulin) 3.1 gm/dL A/G ratio (test code = A/G ratio) 1.2 >1.0 bilirubin,total (test code = <0.3 0.0-1.2 bilirubin,total) AST/SGOT (test code = AST/SGOT) 36 U/L 15-32 H Alanine aminotransferase 26 U/L 0-33 [Enzymatic activity/volume] in Serum or Plasma (test code = 1742-6) Alkaline phosphatase [Enzymatic 60 U/L 35-105 activity/volume] in Serum or Plasma (test code = 6768-6) [facility] HospitalDifferential panel, method unspecified - [id number] 00:00:00NeutrophilsBandLymphocyteAtypical LymphMonocyteEosinophilBasophilMetamyelocyteMyelocytePromyelocyteBlastsNucleated Red Blood CellPlasma CellDifferential CommentAbs Neutrophil Count (Man)Abs Lymph Count(Man)Abs Monocyte Count (Man)Abs Eosinophil Count (Man)Abs Basophil Count (Man)Platelet EstimatePlatelet MorphologyPolychromasiaHypochromasiaPoikilocytosisBasophilic StipplingAnisocytosisMicrocytosisMacrocytosisTarget CellsTear Drop CellsOvalocytesToxic GranulationHypersegmented PolysToxic VacuolationSmudge CellsSouth [facility]flower County HospitalLipase [Enzymatic activity/volume] in Serum or [id number] 00:00:00 Test Item Value Reference Range Interpretation Comments lipase (test code = lipase) 34 U/L 13-60 [facility] HospitalUrinalysis complete panel - [id number] 00:00:00 Test Item Value Reference Range Interpretation Comments Color of Urine by Auto (test light yellow code = 14792-8) Appearance of Urine (test code clear clear = 5767-9) Glucose [Presence] in Urine by negative negative Automated test strip (test code = 79734-0) Bilirubin.total [Mass/volume] negative negative in Urine (test code = 1978-6) Ketones [Mass/volume] in Urine negative negative by Automated test strip (test code = 44549-8) Specific gravity of Urine by 1.008 1.003-1.030 Automated test strip (test code = 18606-9) blood urine (test code = blood negative negative urine) pH of Urine (test code = 5.000 5-9 2756-5) protein urine (UA) (test code = negative negative protein urine (UA)) Urobilinogen [Presence] in normal 0.2-1.0 Urine (test code = 88068-6) Nitrite [Presence] in Urine by negative negative Test strip (test code = 5802-4) Leukocyte esterase [Presence] negative negative in Urine by Automated test strip (test code = 11865-3) Erythrocytes [#/volume] in =1-5 0-5 Urine by Automated count (test code = 798-9) Leukocytes [#/area] in Urine <1 0-5 sediment by Automated count (test code = 91547-1) Epithelial cells [Presence] in <1 0-5 Urine sediment by Light microscopy (test code = 95565-6) Bacteria identified in Urine by none detected none detect Culture (test code = 630-4) Casts [#/area] in Urine =2-5 none detect sediment by Automated count (test code = 65506-3) urine culture added? (test code no = urine culture added?) [facility]Urinal[facility] complete [facility] - [id number] 11:35:00 Test Item Value Reference Range Interpretation Comments Color of Urine by Auto (test light yellow code = 38981-4) Appearance of Urine (test code clear clear = 5767-9) Glucose [Presence] in Urine by negative negative Automated test strip (test code = 59218-5) Bilirubin.total [Mass/volume] negative negative in Urine (test code = 1978-6) Ketones [Mass/volume] in Urine negative negative by Automated test strip (test code = 84850-8) Specific gravity of Urine by 1.014 1.003-1.030 Automated test strip (test code = 45611-2) blood urine (test code = blood negative negative urine) pH of Urine (test code = 5.500 5-9 2756-5) protein urine (UA) (test code = trace negative protein urine (UA)) Urobilinogen [Presence] in normal 0.2-1.0 Urine (test code = 14427-7) Nitrite [Presence] in Urine by negative negative Test strip (test code = 5802-4) Leukocyte esterase [Presence] =3 negative H in Urine by Automated test strip (test code = 62824-0) Erythrocytes [#/volume] in <1 0-5 Urine by Automated count (test code = 798-9) Leukocytes [#/area] in Urine =30-49 0-5 H sediment by Automated count (test code = 26576-8) Epithelial cells [Presence] in =1-5 0-5 Urine sediment by Light microscopy (test code = 04918-6) Bacteria identified in Urine by none detected none detect Culture (test code = 630-4) Casts [#/area] in Urine =6-10 none detect H sediment by Automated count (test code = 06280-1) urine culture added? (test code yes = urine culture added?) [facility] identified in Urine by [id number] 11:35:00 Test Item Value Reference Range Interpretation Comments Bacteria identified in no growth after 2 Urine by Culture (test days code = 630-4) [facility] HospitalCB [facility] Auto Differential panel - [id number] 08:50:00 Test Item Value Reference Range Interpretation Comments white blood count (test code = 7.1 K/uL 4.0-11.5 white blood count) red blood count (test code = red 3.53 M/uL 3.80-5.20 L blood count) hemoglobin (test code = 11.9 g/dL 10.5-15.7 hemoglobin) hematocrit (test code = 36.9 % 34.0-50.0 hematocrit) MCV [Entitic volume] (test code = 104.5 fL 86-100 H 07919-9) mean corpuscular hemoglobin (test 33.7 pg 26.2-33.4 H code = mean corpuscular hemoglobin) mean corpuscular HGB conc (test 32.2 g/dL 30-34 code = mean corpuscular HGB conc) red cell distribution width (test 14.3 % 12.0-15.5 code = red cell distribution width) platelet count (test code = 234 K/uL 165-450 platelet count) mean platelet volume (test code = 9.6 fL 9.4-12.6 mean platelet volume) Segmented neutrophils/100 55.5 % 44.4-80.1 leukocytes in Blood (test code = 39940-2) Immature granulocytes [#/volume] 0.0 K/uL 0.0-0.03 in Blood (test code = 37360-0) lymphocyte% (test code = 28.9 % 10.0-50.0 lymphocyte%) mono % (test code = mono %) 11.0 % 3.6-12.0 eos % (test code = eos %) 3.5 % 0.0-5.4 Basophils/100 leukocytes in 0.8 % 0.1-1.2 Unspecified specimen (test code = 43637-0) Band form neutrophils [#/volume] 3.94 K/uL 1.56-6.13 in Blood (test code = 59739-1) Lymphocytes [#/volume] in 2.1 K/uL 1.18-3.74 Unspecified specimen by Automated count (test code = 18313-4) mono # (test code = mono #) 0.78 K/uL 0.24-0.86 eos # (test code = eos #) 0.25 K/uL 0.04-0.36 basophil # (test code = basophil 0.06 K/uL 0.01-0.08 #) NRBC% (test code = NRBC%) 0 /100 WBC 0-0.2 NRBC# (test code = NRBC#) 0 K/uL [facility] GroupCom[facility] 2000 [facility] - Serum or Plasma 2021-07-08 08:50:00 Test Item Value Reference Range Interpretation Comments Glucose [Mass/volume] in Serum or 98 mg/dL 82-115 Plasma (test code = 2345-7) Urea nitrogen [Mass/volume] in 43 mg/dL 8-23 H Serum or Plasma (test code = 3094-0) osmolality calculated,serum (test 283 mOsm/kg 280-300 code = osmolality calculated,serum) creatinine (test code = 1.6 mg/dL 0.50-0.90 H creatinine) glomerular filtration rate (test 30.94 L code = glomerular filtration rate) Urea nitrogen/Creatinine [Mass 26.9 12-20 H Ratio] in Serum or Plasma (test code = 3097-3) sodium level (test code = sodium 136 mmol/L 135-145 level) potassium level (test code = 4.0 mmol/L 3.5-5.2 potassium level) chloride level (test code = 102 mmol/L 98-108 chloride level) CO2 (test code = CO2) 17 mmol/L 21-32 L anion gap (test code = anion gap) 21.0 mEq/L 12-20 H calcium level (test code = 9.4 mg/dL 8.8-10.2 calcium level) total protein (test code = total 7.4 g/dL 6.6-8.7 protein) albumin (test code = albumin) 4.3 g/dL 3.5-5.2 globulin (test code = globulin) 3.1 gm/dL A/G ratio (test code = A/G ratio) 1.4 >1.0 bilirubin,total (test code = 0.4 mg/dL 0.0-1.2 bilirubin,total) AST/SGOT (test code = AST/SGOT) 38 U/L 15-32 H Alanine aminotransferase 26 U/L 0-33 [Enzymatic activity/volume] in Serum or Plasma (test code = 1742-6) Alkaline phosphatase [Enzymatic 71 U/L 35-105 activity/volume] in Serum or Plasma (test code = 6768-6) [facility]Differential [facility], method unspecified - [id number] 00:00:00NeutrophilsBandLymphocyteAtypical LymphMonocyteEosinophilBasophilMetamyelocyteMyelocytePromyelocyteNucleated Red Blood CellDifferential CommentAbs Neutrophil Count (Man)Abs Lymph Count (Man)Abs Monocyte Count (Man)Abs Eosinophil Count (Man)Abs Basophil Count (Man)Platelet EstimatePlatelet MorphologyPolychromasiaHypochromasiaPoikilocytosisBasophilic StipplingAnisocytosisMicrocytosisMacrocytosisTarget CellsTear Drop CellsOvalocytesToxic GranulationHypersegmented PolysToxic VacuolationSmudge CellsSouth [facility] HospitalCreatine kinase [Enzymatic activity/volume] in Serum or [id number] 00:00:00 Test Item Value Reference Range Interpretation Comments creatine kinase (test code = creatine 69 U/L 20-180 kinase) [facility] [id number] 00:00:00 Test Item Value Reference Range Interpretation Comments Troponin T.cardiac [Mass/volume] in <0.01 0-0.011 Blood (test code = 19749-0) [facility] HospitalUrinalysis macro (dipstick) panel - [id number] 14:08:24 Test Item Value Reference Range Interpretation Comments Leukocytes (test code = Large Leukocytes) Nitrite (test code = Nitrite) positive Urobilinogen (test code = .2 Urobilinogen) Protein (test code = Protein) Negative pH (test code = pH) 5.5 Blood (test code = Blood) Large Specific [place] (test code = 1.015 Specific [place]) Ketone (test code = Ketone) Negative Bilirubin (test code = Negative Bilirubin) Glucose (test code = Glucose) Negative Appearance (test code = Slightly Cloudy Appearance) Color (test code = Color) Yellow [facility]Urinal[facility] complete W Reflex Culture panel - Urine 2021-06-08 07:24:00 Test Item Value Reference Range Interpretation Comments Color of Urine by Auto (test code = orange A 59692-6) Appearance of Urine (test code = cloudy clear A 5767-9) Glucose [Presence] in Urine by negative negative Automated test strip (test code = 95172-0) Bilirubin.total [Mass/volume] in negative negative Urine (test code = 1977-) Ketones [Mass/volume] in Urine by negative negative Automated test strip (test code = 36815-3) Specific gravity of Urine by 1.018 1.003-1.030 Automated test strip (test code = 24563-2) blood urine (test code = blood =3 negative H urine) pH of Urine (test code = 2756-5) 5.500 5-9 protein urine (UA) (test code = =2+ (100 negative H protein urine (UA)) Urobilinogen [Presence] in Urine normal 0.2-1.0 (test code = 11317-5) Nitrite [Presence] in Urine by Test negative negative strip (test code = 5802-4) Leukocyte esterase [Presence] in =4 negative H Urine by Automated test strip (test code = 62072-4) Erythrocytes [#/volume] in Urine by >50 0-5 H Automated count (test code = 798-9) Leukocytes [#/area] in Urine >50 0-5 H sediment by Automated count (test code = 86056-9) Epithelial cells [Presence] in <1 0-5 Urine sediment by Light microscopy (test code = 18041-3) Bacteria identified in Urine by large (3 none detect H Culture (test code = 630-4) Casts [#/area] in Urine sediment by =6-10 none detect H Automated count (test code = 17280-0) urine culture added? (test code = yes urine culture added?) Mucus [Presence] in Urine by none seen none detect Automated (test code = 93205-7) [facility] HospitalBacteria identified in Urine by [id number] 07:24:00[facility], [id number] 07:24:00 Test Item Value Reference Range Interpretation Comments Gentamicin [Susceptibility] by Minimum <2 inhibitory concentration (YUNG) (test code = 267-5) Ampicillin [Susceptibility] by Minimum <8 inhibitory concentration (YUNG) (test code = 28-1) ceFAZolin [Susceptibility] by Minimum <2 inhibitory concentration (YUNG) (test code = 76-0) Trimethoprim+Sulfamethoxazole =2/38 [Susceptibility] by Minimum inhibitory concentration (YUNG) (test code = 516-5) Tetracycline [Susceptibility] by <4 Minimum inhibitory concentration (YUNG) (test code = 496-0) Amoxicillin+Clavulanate =8/4 [Susceptibility] by Minimum inhibitory concentration (YUNG) (test code = 20-8) Tobramycin [Susceptibility] by Minimum <4 inhibitory concentration (YUNG) (test code = 508-2) Nitrofurantoin [Susceptibility] by <32 Minimum inhibitory concentration (YUNG) (test code = 363-2) Cefotaxime [Susceptibility] by Minimum <2 inhibitory concentration (YUNG) (test code = 108-1) Cefepime [Susceptibility] by Minimum <8 inhibitory concentration (YUNG) (test code = 6644-9) levoFLOXacin [Susceptibility] by >4 Minimum inhibitory concentration (YUNG) (test code = 73560-6) Piperacillin+Tazobactam <16 [Susceptibility] by Minimum inhibitory concentration (YUNG) (test code = 412-7) cefTAZidime [Susceptibility] by Minimum <1 inhibitory concentration (YUNG) (test code = 133-9) cefTRIAXone [Susceptibility] by Minimum <1 inhibitory concentration (YUNG) (test code = 141-2) Ciprofloxacin [Susceptibility] by >2 Minimum inhibitory concentration (YUNG) (test code = 185-9) Imipenem [Susceptibility] by Minimum <1 inhibitory concentration (YUNG) (test code = 279-0) Ampicillin+Sulbactam [Susceptibility] =8/4 by Minimum inhibitory concentration (YUNG) (test code = 32-3) Ertapenem [Susceptibility] by Minimum <0.5 inhibitory concentration (YUNG) (test code = 24172-0) Aztreonam [Susceptibility] by Minimum <4 inhibitory concentration (YUNG) (test code = 44-8) Cefuroxime [Susceptibility] by Minimum <4 inhibitory concentration (YUNG) (test code = 84137-3) [facility] Group[facility] Culture [facility] - Urine 2021-05-23 10:42:00 Test Item Value Reference Range Interpretation Comments Color of Urine by Auto dk. brown (test code = 90635-5) Appearance of Urine (test turbid clear code = 5767-9) Glucose [Mass/volume] in negative negative Urine (test code = 2350-7) bilirubin, urine (test small negative H code = bilirubin, urine) ketone, urine (test code small, 15 negative H = ketone, urine) Specific gravity of Urine 1.025 1.003-1.030 by Automated test strip (test code = 36793-9) Hemoglobin [Presence] in large negative H Urine by Test strip (test code = 5794-3) pH of Urine (test code = 5.500 5-9 2756-5) protein urine (UA) (test =2+ (100 negative H code = protein urine (UA)) Urobilinogen [Presence] 0.2 E.U./dL 0.2-1.0 in Urine (test code = 35799-2) Nitrite [Presence] in negative negative Urine by Test strip (test code = 5802-4) urine leukocyte esterase moderate negative H (test code = urine leukocyte esterase) Erythrocytes [Presence] too numerous to cnt 0-5 H in Urine (test code = 74007-6) WBC, urine (test code = >50 0-5 H WBC, urine) Epithelial cells occassional 0-5 [Presence] in Urine sediment by Light microscopy (test code = 75286-3) bacteria, urine (test large (3 none detect H code = bacteria, urine) Casts [#/area] in Urine none seen none detect sediment by Automated count (test code = 76711-1) urine culture added? yes (test code = urine culture added?) [facility] GroupBacteria identified in Urine by [id number] 10:42:00[facility] [id number] 10:42:00 Test Item Value Reference Range Interpretation Comments Gentamicin [Susceptibility] by Minimum <2 inhibitory concentration (YUNG) (test code = 267-5) Ampicillin [Susceptibility] by Minimum >16 inhibitory concentration (YUNG) (test code = 28-1) ceFAZolin [Susceptibility] by Minimum <2 inhibitory concentration (YUNG) (test code = 76-0) Trimethoprim+Sulfamethoxazole =2/38 [Susceptibility] by Minimum inhibitory concentration (YUNG) (test code = 516-5) Tetracycline [Susceptibility] by <4 Minimum inhibitory concentration (YUNG) (test code = 496-0) Amoxicillin+Clavulanate =8/4 [Susceptibility] by Minimum inhibitory concentration (YUNG) (test code = 20-8) Tobramycin [Susceptibility] by Minimum <4 inhibitory concentration (YUNG) (test code = 508-2) Nitrofurantoin [Susceptibility] by <32 Minimum inhibitory concentration (YUNG) (test code = 363-2) Cefotaxime [Susceptibility] by Minimum <2 inhibitory concentration (YUNG) (test code = 108-1) Cefepime [Susceptibility] by Minimum <8 inhibitory concentration (YUGN) (test code = 6644-9) levoFLOXacin [Susceptibility] by <2 Minimum inhibitory concentration (YUNG) (test code = 96194-2) Piperacillin+Tazobactam <16 [Susceptibility] by Minimum inhibitory concentration (YUNG) (test code = 412-7) cefTAZidime [Susceptibility] by Minimum <1 inhibitory concentration (YUNG) (test code = 133-9) cefTRIAXone [Susceptibility] by Minimum <1 inhibitory concentration (YUNG) (test code = 141-2) Ciprofloxacin [Susceptibility] by <1 Minimum inhibitory concentration (YUNG) (test code = 185-9) Imipenem [Susceptibility] by Minimum <1 inhibitory concentration (YUNG) (test code = 279-0) Ampicillin+Sulbactam [Susceptibility] =16/8 by Minimum inhibitory concentration (YUNG) (test code = 32-3) Ertapenem [Susceptibility] by Minimum <0.5 inhibitory concentration (YUNG) (test code = 47889-5) Aztreonam [Susceptibility] by Minimum <4 inhibitory concentration (YUNG) (test code = 44-8) Cefuroxime [Susceptibility] by Minimum <4 inhibitory concentration (YUNG) (test code = 34136-0) [facility] by [id number] 02:52:00 Test Item Value Reference Range Interpretation Comments Bacteria identified in no growth at 2 days Urine by Culture (test code = 630-4) [facility] W Auto Differential panel - [id number] 03:06:00 Test Item Value Reference Range Interpretation Comments white blood count (test code = 4.7 K/uL 4.0-11.5 white blood count) red blood count (test code = red 2.99 M/uL 3.80-5.20 L blood count) hemoglobin (test code = 10.3 g/dL 10.5-15.7 L hemoglobin) hematocrit (test code = 32.5 % 34.0-50.0 L hematocrit) MCV [Entitic volume] (test code = 108.7 fL 86-100 H 52927-6) mean corpuscular hemoglobin (test 34.4 pg 26.2-33.4 H code = mean corpuscular hemoglobin) mean corpuscular HGB conc (test 31.7 g/dL 30-34 code = mean corpuscular HGB conc) red cell distribution width (test 13.3 % 12.0-15.5 code = red cell distribution width) platelet count (test code = 218 K/uL 165-450 platelet count) mean platelet volume (test code = 9.4 fL 9.4-12.6 mean platelet volume) Segmented neutrophils/100 42.5 % 44.4-80.1 L leukocytes in Blood (test code = 00288-3) Immature granulocytes [#/volume] 0.0 K/uL 0.0-0.03 in Blood (test code = 56642-9) lymphocyte% (test code = 35.7 % 10.0-50.0 lymphocyte%) mono % (test code = mono %) 14.6 % 3.6-12.0 H eos % (test code = eos %) 5.7 % 0.0-5.4 H Basophils/100 leukocytes in 1.1 % 0.1-1.2 Unspecified specimen (test code = 87038-3) Band form neutrophils [#/volume] 2.01 K/uL 1.56-6.13 in Blood (test code = 06167-1) Lymphocytes [#/volume] in 1.7 K/uL 1.18-3.74 Unspecified specimen by Automated count (test code = 52181-2) mono # (test code = mono #) 0.69 K/uL 0.24-0.86 eos # (test code = eos #) 0.27 K/uL 0.04-0.36 basophil # (test code = basophil 0.05 K/uL 0.01-0.08 #) NRBC% (test code = NRBC%) 0 /100 WBC 0-0.2 NRBC# (test code = NRBC#) 0 K/uL [facility] GroupDifferential panel, method unspecified - [id number] 03:06:00NeutrophilsBandLymphocyteAtypical LymphMonocyteEosinophilBasophilMetamyelocyteMyelocytePromyelocyteBlastsNucleated Red Blood CellDifferential CommentAbs Neutrophil Count (Man)Abs Lymph Count (Man)Abs Monocyte Count (Man)Abs Eosinophil Count (Man)Abs Basophil Count (Man)Platelet EstimatePlatelet Morphol ogyPolychromasiaHypochromasiaAnisocytosisMicrocytosisMacrocytosisTarget CellsOvalocytesToxic GranulationToxic VacuolationMaNorth Mississippi Medical CenterPT/INR 2021-01-26 03:06:00 Test Item Value Reference Range Interpretation Comments prothrombin time (test code = 11.2 seconds 10.3-12.3 prothrombin time) INR in Blood by Coagulation 1.05 assay (test code = 52048-0) [facility] [id number] 03:06:00 Test Item Value Reference Range Interpretation Comments INR in Blood by Coagulation 27.1 seconds 22.5-37.0 assay (test code = 38455-4) [facility] metabolic 2000 panel - Serum or [id number] 03:06:00 Test Item Value Reference Range Interpretation Comments Glucose [Mass/volume] in Serum or 91 mg/dL 82-115 Plasma (test code = 2345-7) Urea nitrogen [Mass/volume] in 49 mg/dL 8-23 H Serum or Plasma (test code = 3094-0) osmolality calculated,serum (test 292 mOsm/kg 280-300 code = osmolality calculated,serum) creatinine (test code = 1.7 mg/dL 0.50-0.90 H creatinine) glomerular filtration rate (test 28.85 L code = glomerular filtration rate) Urea nitrogen/Creatinine [Mass 28.8 12-20 H Ratio] in Serum or Plasma (test code = 3097-3) sodium level (test code = sodium 140 mmol/L 135-145 level) potassium level (test code = 4.8 mmol/L 3.5-5.2 potassium level) chloride level (test code = 108 mmol/L 98-108 chloride level) CO2 (test code = CO2) 22 mmol/L 21-32 anion gap (test code = anion gap) 14.8 mEq/L 12-20 calcium level (test code = 9.2 mg/dL 8.8-10.2 calcium level) [facility] W Auto Differential panel - [id number] 00:00:00 Test Item Value Reference Range Interpretation Comments white blood count (test code = 4.2 K/uL 4.0-11.5 white blood count) red blood count (test code = red 2.86 M/uL 3.80-5.20 L blood count) hemoglobin (test code = 10.0 g/dL 10.5-15.7 L hemoglobin) hematocrit (test code = 32.4 % 34.0-50.0 L hematocrit) MCV [Entitic volume] (test code = 113.3 fL 86-100 H 59576-8) mean corpuscular hemoglobin (test 35.0 pg 26.2-33.4 H code = mean corpuscular hemoglobin) mean corpuscular HGB conc (test 30.9 g/dL 30-34 code = mean corpuscular HGB conc) red cell distribution width (test 13.2 % 12.0-15.5 code = red cell distribution width) platelet count (test code = 186 K/uL 165-450 platelet count) mean platelet volume (test code = 9.5 fL 9.4-12.6 mean platelet volume) Segmented neutrophils/100 40.4 % 44.4-80.1 L leukocytes in Blood (test code = 04730-7) Immature granulocytes [#/volume] 0.0 K/uL 0.0-0.03 in Blood (test code = 79249-7) lymphocyte% (test code = 39.5 % 10.0-50.0 lymphocyte%) mono % (test code = mono %) 12.0 % 3.6-12.0 eos % (test code = eos %) 6.5 % 0.0-5.4 H Basophils/100 leukocytes in 1.4 % 0.1-1.2 H Unspecified specimen (test code = 81741-7) Band form neutrophils [#/volume] 1.69 K/uL 1.56-6.13 in Blood (test code = 19674-8) Lymphocytes [#/volume] in 1.7 K/uL 1.18-3.74 Unspecified specimen by Automated count (test code = 69310-9) mono # (test code = mono #) 0.50 K/uL 0.24-0.86 eos # (test code = eos #) 0.27 K/uL 0.04-0.36 basophil # (test code = basophil 0.06 K/uL 0.01-0.08 #) NRBC% (test code = NRBC%) 0 /100 WBC 0-0.2 NRBC# (test code = NRBC#) 0 K/uL [facility]Different[facility], method unspecified - [id number] 00:00:00NeutrophilsBandLymphocyteAtypical LymphMonocyteEosinophilBasophilMetamyelocyteMyelocytePromyelocyteBlastsNucleated Red Blood CellAbs Neutrophil Count (Man)Abs Lymph Count (Man)Abs Monocyte Count (Man)Abs Eosinophil Count (Man)Abs Basophil Count (Man)Platelet EstimatePlatelet MorphologyPolychromasiaHypo chromasiaPoikilocytosisAnisocytosisSchistocytesOvalocytesToxic GranulationHypersegmented PolysToxic VacuolationGiant PlateletsDifferential comment-PMaNorth Mississippi Medical CenterUrinalysis complete W Reflex Culture panel - [id number] 00:00:00 Test Item Value Reference Range Interpretation Comments Color of Urine by Auto (test light yellow code = 29809-5) Appearance of Urine (test code clear clear = 5767-9) Glucose [Presence] in Urine by negative negative Automated test strip (test code = 01278-2) Bilirubin.total [Mass/volume] negative negative in Urine (test code = 1978-6) Ketones [Mass/volume] in Urine negative negative by Automated test strip (test code = 16496-3) Specific gravity of Urine by 1.021 1.003-1.030 Automated test strip (test code = 03838-3) blood urine (test code = blood negative negative urine) pH of Urine (test code = 5.500 5-9 2756-5) protein urine (UA) (test code = negative negative protein urine (UA)) Urobilinogen [Presence] in normal 0.2-1.0 Urine (test code = 91031-7) Nitrite [Presence] in Urine by negative negative Test strip (test code = 5802-4) Leukocyte esterase [Presence] =2 negative H in Urine by Automated test strip (test code = 94985-7) Erythrocytes [#/volume] in <1 0-5 Urine by Automated count (test code = 798-9) Leukocytes [#/area] in Urine =1-5 0-5 sediment by Automated count (test code = 88455-5) Epithelial cells [Presence] in <1 0-5 Urine sediment by Light microscopy (test code = 78387-3) Bacteria identified in Urine by none detected none detect Culture (test code = 630-4) Casts [#/area] in Urine none detected none detect sediment by Automated count (test code = 52125-9) urine culture added? (test code yes = urine culture added?) [facility] by [id number] 00:00:00 Test Item Value Reference Range Interpretation Comments Bacteria identified in no growth at 2 days Urine by Culture (test code = 630-4) [facility] 2000 [facility] - Serum or Plasma 2020-12-21 00:00:00 Test Item Value Reference Range Interpretation Comments glucose (test code = glucose) 81 mg/dL 82-115 L Urea nitrogen [Mass/volume] in 43 mg/dL 8-23 H Serum or Plasma (test code = 3094-0) osmolality calculated,serum (test 297 mOsm/kg 280-300 code = osmolality calculated,serum) creatinine (test code = 1.6 mg/dL 0.50-0.90 H creatinine) glomerular filtration rate (test 30.94 L code = glomerular filtration rate) Urea nitrogen/Creatinine [Mass 26.9 12-20 H Ratio] in Serum or Plasma (test code = 3097-3) sodium level (test code = sodium 144 mmol/L 135-145 level) Potassium [Moles/volume] in Body 5.1 mmol/L 3.5-5.2 fluid (test code = 2821-7) chloride level (test code = 112 mmol/L 98-108 H chloride level) CO2 (test code = CO2) 21 mmol/L 21-32 anion gap (test code = anion gap) 16.1 mEq/L 12-20 calcium level (test code = 8.9 mg/dL 8.8-10.2 calcium level) total protein (test code = total 6.9 g/dL 6.6-8.7 protein) albumin (test code = albumin) 3.9 g/dL 3.5-5.2 globulin (test code = globulin) 3.0 gm/dL A/G ratio (test code = A/G ratio) 1.3 >1.0 bilirubin,total (test code = <0.3 0.0-1.2 bilirubin,total) AST/SGOT (test code = AST/SGOT) 33 U/L 15-32 H Alanine aminotransferase 32 U/L 0-33 [Enzymatic activity/volume] in Serum or Plasma (test code = 1742-6) Alkaline phosphatase [Enzymatic 75 U/L 35-105 activity/volume] in Serum or Plasma (test code = 6768-6) [facility] - Serum or [id number] 00:00:00 Test Item Value Reference Range Interpretation Comments cholesterol level (test code = 101 mg/dL 150-200 L cholesterol level) triglycerides level (test code = 91 mg/dL <150 triglycerides level) HDL cholesterol (test code = HDL 64 mg/dL >65 L cholesterol) LDL cholesterol direct (test code = 25 mg/dL <100 LDL cholesterol direct) cholesterol risk ratio (test code = 1.578 cholesterol risk ratio) [facility] HospitalThyrotropin [Units/volume] in Serum or [id number] 00:00:00 Test Item Value Reference Range Interpretation Comments Thyrotropin [Units/volume] in 2.61 uIU/mL 0.36-3.74 Serum or Plasma (test code = 3016-3) [facility] HospitalUrinal[facility] Reflex Culture panel - Urine 2020-11-10 11:30:00 Test Item Value Reference Range Interpretation Comments Color of Urine by Auto (test light yellow code = 93026-7) Appearance of Urine (test code clear clear = 5767-9) Glucose [Presence] in Urine by negative negative Automated test strip (test code = 94015-5) Bilirubin.total [Mass/volume] negative negative in Urine (test code = 1977-6) Ketones [Mass/volume] in Urine negative negative by Automated test strip (test code = 92331-8) Specific gravity of Urine by 1.010 1.003-1.030 Automated test strip (test code = 50706-1) blood urine (test code = blood negative negative urine) pH of Urine (test code = 5.000 5-9 2756-5) protein urine (UA) (test code = negative negative protein urine (UA)) Urobilinogen [Presence] in normal 0.2-1.0 Urine (test code = 65049-5) Nitrite [Presence] in Urine by negative negative Test strip (test code = 5802-4) Leukocyte esterase [Presence] negative negative in Urine by Automated test strip (test code = 40652-2) Erythrocytes [#/volume] in <1 0-5 Urine by Automated count (test code = 798-9) Leukocytes [#/area] in Urine =1-5 0-5 sediment by Automated count (test code = 19925-5) Epithelial cells [Presence] in <1 0-5 Urine sediment by Light microscopy (test code = 44041-0) Bacteria identified in Urine by none detected none detect Culture (test code = 630-4) Casts [#/area] in Urine none detected none detect sediment by Automated count (test code = 78303-7) urine culture added? (test code no = urine culture added?) [facility] W Auto Differential panel - [id number] 06:35:00 Test Item Value Reference Range Interpretation Comments white blood count (test code = 7.7 K/uL 4.0-11.5 white blood count) red blood count (test code = red 3.17 M/uL 3.80-5.20 L blood count) hemoglobin (test code = 10.5 g/dL 10.5-15.7 hemoglobin) hematocrit (test code = 33.3 % 34.0-50.0 L hematocrit) MCV [Entitic volume] (test code = 105.0 fL 86-100 H 23190-7) mean corpuscular hemoglobin (test 33.1 pg 26.2-33.4 code = mean corpuscular hemoglobin) mean corpuscular HGB conc (test 31.5 g/dL 30-34 code = mean corpuscular HGB conc) red cell distribution width (test 17.8 % 12.0-15.5 H code = red cell distribution width) platelet count (test code = 263 K/uL 165-450 platelet count) mean platelet volume (test code = 9.3 fL 9.4-12.6 L mean platelet volume) Segmented neutrophils/100 43.9 % 44.4-80.1 L leukocytes in Blood (test code = 18229-7) Immature granulocytes [#/volume] 0.0 K/uL 0.0-0.03 in Blood (test code = 20965-1) lymphocyte% (test code = 37.7 % 10.0-50.0 lymphocyte%) mono % (test code = mono %) 11.7 % 3.6-12.0 eos % (test code = eos %) 5.8 % 0.0-5.4 H Basophils/100 leukocytes in 0.8 % 0.1-1.2 Unspecified specimen (test code = 93127-4) Band form neutrophils [#/volume] 3.38 K/uL 1.56-6.13 in Blood (test code = 97536-3) Lymphocytes [#/volume] in 2.9 K/uL 1.18-3.74 Unspecified specimen by Automated count (test code = 81020-2) mono # (test code = mono #) 0.90 K/uL 0.24-0.86 H eos # (test code = eos #) 0.45 K/uL 0.04-0.36 H basophil # (test code = basophil 0.06 K/uL 0.01-0.08 #) NRBC% (test code = NRBC%) 0 /100 WBC 0-0.2 NRBC# (test code = NRBC#) 0 K/uL [facility]Differential panel, method unspecified - [id number] 06:35:00NeutrophilsBandLymphocyteAtypical LymphMonocyteEosinophilBasophilMetamyelocyteMyelocyteNucleated RedBlood CellDifferential CommentPlatelet EstimatePlatelet MorphologyPoikilocytosisAnisocytosisOvalocytesToxic GranulationBurr CellsHypersegmented PolysToxic VacuolationSmudge CellsDifferential comment-P [facility]Com[facility] 2000 [facility] - Serum or Plasma 2020-08-25 06:35:00 Test Item Value Reference Range Interpretation Comments glucose (test code = glucose) 64 mg/dL 82-115 L Urea nitrogen [Mass/volume] in 24 mg/dL 8-23 H Serum or Plasma (test code = 3094-0) osmolality calculated,serum (test 283 mOsm/kg 280-300 code = osmolality calculated,serum) creatinine (test code = 1.4 mg/dL 0.50-0.90 H creatinine) glomerular filtration rate (test 36.18 L code = glomerular filtration rate) Urea nitrogen/Creatinine [Mass 17.1 12-20 Ratio] in Serum or Plasma (test code = 3097-3) sodium level (test code = sodium 141 mmol/L 135-145 level) Potassium [Moles/volume] in Body 3.8 mmol/L 3.5-5.2 fluid (test code = 2821-7) chloride level (test code = 100 mmol/L 98-108 chloride level) CO2 (test code = CO2) 26 mmol/L 21-32 anion gap (test code = anion gap) 18.8 mEq/L 12-20 calcium level (test code = 9.3 mg/dL 8.8-10.2 calcium level) total protein (test code = total 7.5 g/dL 6.6-8.7 protein) albumin (test code = albumin) 4.2 g/dL 3.5-5.2 globulin (test code = globulin) 3.3 gm/dL A/G ratio (test code = A/G ratio) 1.3 >1.0 bilirubin,total (test code = 0.5 mg/dL 0.0-1.2 bilirubin,total) AST/SGOT (test code = AST/SGOT) 63 U/L 15-32 H Alanine aminotransferase 60 U/L 0-33 H [Enzymatic activity/volume] in Serum or Plasma (test code = 1742-6) Alkaline phosphatase [Enzymatic 79 U/L 35-105 activity/volume] in Serum or Plasma (test code = 6768-6) [facility] - Serum or [id number] 06:35:00 Test Item Value Reference Range Interpretation Comments cholesterol level (test code = 145 mg/dL 150-200 L cholesterol level) triglycerides level (test code = 114 mg/dL <150 triglycerides level) HDL cholesterol (test code = HDL 95 mg/dL >65 cholesterol) LDL cholesterol direct (test code = 31 mg/dL <100 LDL cholesterol direct) cholesterol risk ratio (test code = 1.526 cholesterol risk ratio) [facility]CB [facility] Differential panel - [id number] 02:34:00 Test Item Value Reference Range Interpretation Comments white blood count (test code = 5.9 K/uL 4.0-11.5 white blood count) red blood count (test code = red 3.29 M/uL 3.80-5.20 L blood count) hemoglobin (test code = 10.7 g/dL 10.5-15.7 hemoglobin) hematocrit (test code = 33.2 % 34.0-50.0 L hematocrit) MCV [Entitic volume] (test code = 100.9 fL 86-100 H 39933-7) mean corpuscular hemoglobin (test 32.5 pg 26.2-33.4 code = mean corpuscular hemoglobin) mean corpuscular HGB conc (test 32.2 g/dL 30-34 code = mean corpuscular HGB conc) red cell distribution width (test 16.2 % 12.0-15.5 H code = red cell distribution width) platelet count (test code = 175 K/uL 165-450 platelet count) mean platelet volume (test code = 10.6 fL 9.4-12.6 mean platelet volume) Segmented neutrophils/100 40.7 % 44.4-80.1 L leukocytes in Blood (test code = 38422-3) Immature granulocytes [#/volume] 0.0 K/uL 0.0-0.03 in Blood (test code = 48427-1) lymphocyte% (test code = 36.9 % 10.0-50.0 lymphocyte%) mono % (test code = mono %) 15.6 % 3.6-12.0 H eos % (test code = eos %) 5.6 % 0.0-5.4 H Basophils/100 leukocytes in 1.0 % 0.1-1.2 Unspecified specimen (test code = 89750-5) Band form neutrophils [#/volume] 2.38 K/uL 1.56-6.13 in Blood (test code = 15770-2) Lymphocytes [#/volume] in 2.2 K/uL 1.18-3.74 Unspecified specimen by Automated count (test code = 10657-6) mono # (test code = mono #) 0.91 K/uL 0.24-0.86 H eos # (test code = eos #) 0.33 K/uL 0.04-0.36 basophil # (test code = basophil 0.06 K/uL 0.01-0.08 #) NRBC% (test code = NRBC%) 0 /100 WBC 0-0.2 NRBC# (test code = NRBC#) 0 K/uL [facility]Different[facility], method unspecified - [id number] 02:34:00NeutrophilsBandLymphocyteAtypical LymphMonocyteEosinophilBasophilPlatelet EstimatePlatelet Morphology PoikilocytosisAnisocytosisMacrocytosisTear Drop CellsStomatocyteRouleauSmudge CellsDifferential comment-[facility] SystemUrinalysis complete W Reflex Culture panel - [id number] 02:34:00 Test Item Value Reference Range Interpretation Comments Color of Urine by Auto (test light yellow code = 50427-8) Appearance of Urine (test code clear clear = 5767-9) Glucose [Presence] in Urine by negative negative Automated test strip (test code = 13738-8) Bilirubin.total [Mass/volume] negative negative in Urine (test code = 1978-6) Ketones [Mass/volume] in Urine negative negative by Automated test strip (test code = 74835-4) Specific gravity of Urine by 1.009 1.003-1.030 Automated test strip (test code = 21466-6) blood urine (test code = blood negative negative urine) pH of Urine (test code = 5.500 5-9 2756-5) protein urine (UA) (test code = negative negative protein urine (UA)) Urobilinogen [Presence] in normal 0.2-1.0 Urine (test code = 56179-2) Nitrite [Presence] in Urine by negative negative Test strip (test code = 5802-4) Leukocyte esterase [Presence] negative negative in Urine by Automated test strip (test code = 55378-7) Erythrocytes [#/volume] in <1 0-5 Urine by Automated count (test code = 798-9) Leukocytes [#/area] in Urine <1 0-5 sediment by Automated count (test code = 26910-4) Epithelial cells [Presence] in <1 0-5 Urine sediment by Light microscopy (test code = 22775-6) Bacteria identified in Urine by none detected none detect Culture (test code = 630-4) Casts [#/area] in Urine none detected none detect sediment by Automated count (test code = 51679-5) urine culture added? (test code no = urine culture added?) [facility]Bas[facility] 2000 panel - Serum or [id number] 02:34:00 Test Item Value Reference Range Interpretation Comments Glucose [Mass/volume] in Serum or 82 mg/dL 82-115 Plasma (test code = 2345-7) Urea nitrogen [Mass/volume] in 28 mg/dL 8-23 H Serum or Plasma (test code = 3094-0) osmolality calculated,serum (test 278 mOsm/kg 280-300 L code = osmolality calculated,serum) creatinine (test code = 1.4 mg/dL 0.50-0.90 H creatinine) glomerular filtration rate (test 36.18 L code = glomerular filtration rate) Urea nitrogen/Creatinine [Mass 20.0 12-20 Ratio] in Serum or Plasma (test code = 3097-3) sodium level (test code = sodium 137 mmol/L 135-145 level) potassium level (test code = 4.1 mmol/L 3.5-5.2 potassium level) chloride level (test code = 102 mmol/L 98-108 chloride level) CO2 (test code = CO2) 25 mmol/L 21-32 anion gap (test code = anion gap) 14.1 mEq/L 12-20 calcium level (test code = 9.2 mg/dL 8.8-10.2 calcium level) [facility] HospitalThyrotropin [Units/volume] in Serum or [id number] 02:34:00 Test Item Value Reference Range Interpretation Comments Thyrotropin [Units/volume] in 47.41 uIU/mL 0.36-3.74 H Serum or Plasma (test code = 3016-3) [id number]00 Test Item Value Reference Range Interpretation Comments Culture Observations (test NO GROWTH AFTER 5 code = COB1) DAYS BLOOD [id number] 07:25:00 Test Item Value Reference Range Interpretation Comments Culture Observations (test NO GROWTH AFTER 5 code = COB1) DAYS CBC (INCLUDES AUTOMATED DIFFERENTIAL)2020-07-19 04:47:00 Test Item Value Reference Range Interpretation Comments WBC (test code = WBC) 5.8 10\S\3/uL 4.5-11.0 RBC (test code = RBC) 2.88 10\S\6/uL 3.80-5.80 L HGB (test code = HBG) 9.6 g/dL 12.0-15.5 L HCT (test code = HCT) 29.7 % 35.0-44.0 L MCV (test code = MCV) 103.1 fL 81.0-99.0 H MCH (test code = MCH) 33.3 pg 27.0-31.0 H MCHC (test code = MCHC) 32.3 g/dL 32.0-36.0 RDW (test code = RDW) 16.9 % 11.5-14.5 H PLT (test code = PLT) 209 10\S\3/uL 130-400 MPV (test code = MPV) 9.4 fL 9.4-12.4 NEUTROP # (test code = NE#) 2.7 10\S\3/uL 1.6-8.0 LYMPH # (test code = LY#) 1.9 10\S\3/uL 1.1-3.5 MONOCYTE # (test code = MO#) 0.7 10\S\3/uL 0.0-1.1 EOSINOPH # (test code = EO#) 0.3 10\S\3/uL 0.0-0.7 BASOPHIL # (test code = BA#) 0.0 10\S\3/uL 0.0-0.3 IG # (test code = IG#) 0.01 10\S\3/uL 0.00-0.06 NRBC # (test code = NRBC#) 0.00 10\S\3/uL 0.00-0.01 NEUTROPH % (test code = NE%) 46.7 % 35.0-73.0 LYMPH % (test code = LY%) 33.6 % 20.0-55.0 MONO % (test code = MO%) 12.9 % 2.5-10.0 H EOSINOPH % (test code = EO%) 5.9 % 0.0-5.0 H BASOPHIL % (test code = BA%) 0.7 % 0.0-2.0 IG % (test code = IG%) 0.2 % 0.0-0.8 NRBC% (test code = NRBC%) 0.0 % 0.0-0.2 MANDIFF (test code = MDIFF) NO RBC MORPH (test code = RBCMOR) NORMAL CBC (INCLUDES AUTOMATED DIFFERENTIAL)2020-07-18 05:38:00 Test Item Value Reference Range Interpretation Comments WBC (test code = WBC) 6.9 10\S\3/uL 4.5-11.0 RBC (test code = RBC) 2.93 10\S\6/uL 3.80-5.80 L HGB (test code = HBG) 9.7 g/dL 12.0-15.5 L HCT (test code = HCT) 30.0 % 35.0-44.0 L MCV (test code = MCV) 102.4 fL 81.0-99.0 H MCH (test code = MCH) 33.1 pg 27.0-31.0 H MCHC (test code = MCHC) 32.3 g/dL 32.0-36.0 RDW (test code = RDW) 17.2 % 11.5-14.5 H PLT (test code = PLT) 191 10\S\3/uL 130-400 MPV (test code = MPV) 9.3 fL 9.4-12.4 L NEUTROP # (test code = NE#) 3.9 10\S\3/uL 1.6-8.0 LYMPH # (test code = LY#) 1.9 10\S\3/uL 1.1-3.5 MONOCYTE # (test code = MO#) 0.7 10\S\3/uL 0.0-1.1 EOSINOPH # (test code = EO#) 0.3 10\S\3/uL 0.0-0.7 BASOPHIL # (test code = BA#) 0.0 10\S\3/uL 0.0-0.3 IG # (test code = IG#) 0.03 10\S\3/uL 0.00-0.06 NRBC # (test code = NRBC#) 0.00 10\S\3/uL 0.00-0.01 NEUTROPH % (test code = NE%) 57.2 % 35.0-73.0 LYMPH % (test code = LY%) 27.4 % 20.0-55.0 MONO % (test code = MO%) 9.9 % 2.5-10.0 EOSINOPH % (test code = EO%) 4.5 % 0.0-5.0 BASOPHIL % (test code = BA%) 0.6 % 0.0-2.0 IG % (test code = IG%) 0.4 % 0.0-0.8 NRBC% (test code = NRBC%) 0.0 % 0.0-0.2 MANDIFF (test code = MDIFF) NO RBC MORPH (test code = RBCMOR) NORMAL BASIC METABOLIC [id number] 05:31:00 Test Item Value Reference Range Interpretation Comments GLUCOSE (test code = 72 mg/dL 75-100 L 06D) SODIUM (test code = 139 mmol/L 136-145 01A) POTASSIUM (test code = 3.9 mmol/L 3.6-5.1 01B) CHLORIDE (test code = 112 mmol/L 98-107 H 04A) CO2 (test code = 02A) 21 mmol/L 22-32 L ANION GAP (test code = 9.9 mmol/L ANG) BUN (test code = 05D) 11 mg/dL 7-18 CREATININE (test code 1.0 mg/dL 0.4-1.1 = 03E) GFR (test code = GFR) 50 mL/min/1.73m\S\2 >=90 L GFR 58 mL/min/1.73m\S\2 >=90 L (test code = GFRAA) EGFR (test code = eGFR BY CKD-EPI EGFR) CALCULATION IS NOT RECOMMENDED FOR PATIENTS UNDER 18 YEARS OF AGE. BUN/CREA (test code = 11 12-20 L BCR) CALCIUM (test code = 8.1 mg/dL 8.3-9.5 L 09D) IRON/TIBC/IRON [id number] 06:51:00 Test Item Value Reference Range Interpretation Comments IRON (test code = 46B) 17 ug/dL 50-170 L TIBC (test code = 79B) 231 ug/dL 250-400 L FE% SAT (test code = ISAT) 7.4 % 15.0-50.0 L CBC (INCLUDES AUTOMATED DIFFERENTIAL)2020-07-17 06:12:00 Test Item Value Reference Range Interpretation Comments WBC (test code = WBC) 9.4 10\S\3/uL 4.5-11.0 RBC (test code = RBC) 2.41 10\S\6/uL 3.80-5.80 L HGB (test code = HBG) 8.3 g/dL 12.0-15.5 L HCT (test code = HCT) 25.6 % 35.0-44.0 L MCV (test code = MCV) 106.2 fL 81.0-99.0 H MCH (test code = MCH) 34.4 pg 27.0-31.0 H MCHC (test code = MCHC) 32.4 g/dL 32.0-36.0 RDW (test code = RDW) 15.6 % 11.5-14.5 H PLT (test code = PLT) 174 10\S\3/uL 130-400 MPV (test code = MPV) 9.2 fL 9.4-12.4 L NEUTROP # (test code = NE#) 6.3 10\S\3/uL 1.6-8.0 LYMPH # (test code = LY#) 2.0 10\S\3/uL 1.1-3.5 MONOCYTE # (test code = MO#) 0.8 10\S\3/uL 0.0-1.1 EOSINOPH # (test code = EO#) 0.2 10\S\3/uL 0.0-0.7 BASOPHIL # (test code = BA#) 0.0 10\S\3/uL 0.0-0.3 IG # (test code = IG#) 0.03 10\S\3/uL 0.00-0.06 NRBC # (test code = NRBC#) 0.00 10\S\3/uL 0.00-0.01 NEUTROPH % (test code = NE%) 66.7 % 35.0-73.0 LYMPH % (test code = LY%) 21.2 % 20.0-55.0 MONO % (test code = MO%) 8.9 % 2.5-10.0 EOSINOPH % (test code = EO%) 2.5 % 0.0-5.0 BASOPHIL % (test code = BA%) 0.4 % 0.0-2.0 IG % (test code = IG%) 0.3 % 0.0-0.8 NRBC% (test code = NRBC%) 0.0 % 0.0-0.2 MANDIFF (test code = MDIFF) NO RBC MORPH (test code = RBCMOR) NORMAL BASIC METABOLIC [id number] 06:09:00 Test Item Value Reference Range Interpretation Comments GLUCOSE (test code = 85 mg/dL 75-100 06D) SODIUM (test code = 140 mmol/L 136-145 01A) POTASSIUM (test code = 3.6 mmol/L 3.6-5.1 01B) CHLORIDE (test code = 114 mmol/L 98-107 H 04A) CO2 (test code = 02A) 19 mmol/L 22-32 L ANION GAP (test code = 10.6 mmol/L ANG) BUN (test code = 05D) 13 mg/dL 7-18 CREATININE (test code 1.0 mg/dL 0.4-1.1 = 03E) GFR (test code = GFR) 56 mL/min/1.73m\S\2 >=90 L GFR 65 mL/min/1.73m\S\2 >=90 L (test code = GFRAA) EGFR (test code = eGFR BY CKD-EPI EGFR) CALCULATION IS NOT RECOMMENDED FOR PATIENTS UNDER 18 YEARS OF AGE. BUN/CREA (test code = 14 12-20 BCR) CALCIUM (test code = 7.8 mg/dL 8.3-9.5 L 09D) LACTIC [id number] 06:08:00 Test Item Value Reference Range Interpretation Comments LACTIC ACD (test code = LA) 0.5 mmol/L 0.4-2.0 DIRECT STREP GROUP [id number] 11:43:00 Test Item Value Reference Range Interpretation Comments Culture Observations NO BETA HEMOLYTIC (test code = COB1) STREPTOCOCCUS ISOLATED Direct Exam (test code NEGATIVE FOR STREP A = DE1) ANTIGEN CBC (INCLUDES AUTOMATED DIFFERENTIAL)2020-07-16 06:17:00 Test Item Value Reference Range Interpretation Comments WBC (test code = WBC) 13.7 10\S\3/uL 4.5-11.0 H RBC (test code = RBC) 2.75 10\S\6/uL 3.80-5.80 L HGB (test code = HBG) 9.3 g/dL 12.0-15.5 L HCT (test code = HCT) 29.4 % 35.0-44.0 L MCV (test code = MCV) 106.9 fL 81.0-99.0 H MCH (test code = MCH) 33.8 pg 27.0-31.0 H MCHC (test code = MCHC) 31.6 g/dL 32.0-36.0 L RDW (test code = RDW) 15.7 % 11.5-14.5 H PLT (test code = PLT) 188 10\S\3/uL 130-400 MPV (test code = MPV) 9.2 fL 9.4-12.4 L NEUTROP # (test code = NE#) 9.2 10\S\3/uL 1.6-8.0 H LYMPH # (test code = LY#) 2.8 10\S\3/uL 1.1-3.5 MONOCYTE # (test code = MO#) 1.4 10\S\3/uL 0.0-1.1 H EOSINOPH # (test code = EO#) 0.2 10\S\3/uL 0.0-0.7 BASOPHIL # (test code = BA#) 0.1 10\S\3/uL 0.0-0.3 IG # (test code = IG#) 0.06 10\S\3/uL 0.00-0.06 NRBC # (test code = NRBC#) 0.00 10\S\3/uL 0.00-0.01 NEUTROPH % (test code = NE%) 67.4 % 35.0-73.0 LYMPH % (test code = LY%) 20.2 % 20.0-55.0 MONO % (test code = MO%) 10.1 % 2.5-10.0 H EOSINOPH % (test code = EO%) 1.5 % 0.0-5.0 BASOPHIL % (test code = BA%) 0.4 % 0.0-2.0 IG % (test code = IG%) 0.4 % 0.0-0.8 NRBC% (test code = NRBC%) 0.0 % 0.0-0.2 MANDIFF (test code = MDIFF) NO RBC MORPH (test code = RBCMOR) NORMAL BASIC METABOLIC [id number] 06:13:00 Test Item Value Reference Range Interpretation Comments GLUCOSE (test code = 89 mg/dL 75-100 06D) SODIUM (test code = 140 mmol/L 136-145 01A) POTASSIUM (test code = 4.0 mmol/L 3.6-5.1 01B) CHLORIDE (test code = 112 mmol/L 98-107 H 04A) CO2 (test code = 02A) 21 mmol/L 22-32 L ANION GAP (test code = 11.0 mmol/L ANG) BUN (test code = 05D) 22 mg/dL 7-18 H CREATININE (test code 1.4 mg/dL 0.4-1.1 H = 03E) GFR (test code = GFR) 36 mL/min/1.73m\S\2 >=90 L GFR 41 mL/min/1.73m\S\2 >=90 L (test code = GFRAA) EGFR (test code = eGFR BY CKD-EPI EGFR) CALCULATION IS NOT RECOMMENDED FOR PATIENTS UNDER 18 YEARS OF AGE. BUN/CREA (test code = 16 12-20 BCR) CALCIUM (test code = 8.5 mg/dL 8.3-9.5 09D) Arterial Blood [id number] 00:55:00 Test Item Value Reference Range Interpretation Comments pH (test code = PHRT) 7.349 7.350-7.450 L pCO2 (test code = 34.4 mmHg 35.0-45.0 L PCO2RT) pO2 (test code = 82.9 mmHg 80.0-110.0 PO2RT) HCO3? (test code = 18.5 mmol/L 22.0-26.0 L HCO3) VERENA (test code = VERENA) -6.0 mmol/L -3.0-3.0 L tHb (test code = 9.7 g/dL 12.0-15.5 L THBRT) sO2 (test code = 96.2 % 92.0-100.0 SO2RT) FO2Hb (test code = 94.2 % 94.0-100.0 VP6MNMM) FCOHb (test code = 1.4 % 0.0-3.0 FCOHBRT) FMetHb (test code = 0.7 % 0.2-0.6 H FMETHBRT) ABGTEMP (test code = * Temp Corrected Values* ABGTEMP) ABGTEMP (test code = 37.0 ?C ABGTEMP.) pH (T) (test code = 7.349 7.350-7.450 L PHTEMP) pCO2 (T) (test code = 34.4 mmHg 35.0-45.0 L [id number]) pO2 (T) (test code = 82.9 mmHg 80.0-110.0 EQ0RRXT) Device (test code = ROOM AIR DEVICE) FI02 (test code = 21.0 % FI02) Liter_flow (test code = LF) VENPAR (test code = * Ventilator Parameters VENPAR) * SIMV (test code = SIMV) A/C (test code = A/C) CPAP (test code = CPAP) PEEP (test code = PEEP) PS (test code = PS) PIP (test code = PIP) I_Time (test code = ITIME) Vt (test code = VT) BIPAP INSP (test code = BIPAPINP) BIPAP EXP (test code = BIPAPEXP) Sonu test (test code Positive = ATEST) SAMPLE SITE (test Right Brachial Artery code = SSITE) COMMENT (test code = CO) URINALYSIS WITH [id number] 00:26:00 Test Item Value Reference Range Interpretation Comments COLOR (test code = COLU) YELLOW YELLOW CLARITY (test code = CLA) CLEAR CLEAR GLUCOSE UR (test code = UA GLUCOSE) NEGATIVE NEGATIVE BILI UR (test code = BILE) NEGATIVE NEGATIVE KETONES UR (test code = ARTUR) NEGATIVE NEGATIVE SP GRAVITY (test code = SPGR) 1.020 1.005-1.030 PH UR (test code = PH) 5.0 4.5-8.0 PROTEIN UR (test code = PU) NEGATIVE NEGATIVE UROBIL UR (test code = UROQ) 0.2 EU/dL 0.2-1.0 NITRITE UR (test code = NITRITE) NEGATIVE NEGATIVE BLOOD UR (test code = UA BLOOD) NEGATIVE NEGATIVE LEUK ES UR (test code = LEUK) 1+ NEGATIVE A WBC UR (test code = UWBC) 2 /HPF 0-5 RBC UR (test code = URBC) 0 /HPF 0-2 EPITH UR (test code = UEPC) FEW /LPF FEW BACTERIA UR (test code = UBACT) FEW /HPF NONE A CAST UR (test code = CAST) /LPF NONE CRYSTAL UR (test code = CRYU) / LPF NONE MUCUS UR (test code = MUC) / HPF NONE AMORPH UR (test code = LIZ) / HPF NONE TRICH UR (test code = UTRICH) /HPF NONE YEAST UR (test code = UY) /HPF NONE SPERM UR (test code = USPERM) /HPF NONE LACTIC [id number] 23:18:00 Test Item Value Reference Range Interpretation Comments LACTIC ACD (test code = LA) 1.9 mmol/L 0.4-2.0 SARS-CoV (RAPID ANTIGEN)2020-07-14 23:10:00 Test Item Value Reference Range Interpretation Comments SARS-CoV (ANTIGEN) NEGATIVE NEGATIVE (test code = COVAG) COVID AG (test This test has been code = COVAGC) marketed under the FDA Emergency Use Authorization (EUA) to meet challenges of the COVID-19 pandemic. The validation standards normally enforced by the FDA and the [employer] the [employer] [place] [employer] ([employer]) are more stringent than those required for this test. Therefore, the result should be interpreted with caution and close attention to other clinical and epidemiological data AMMONIA [id number] 22:54:00 Test Item Value Reference Range Interpretation Comments AMMONIA (test code = 54A) 21 umol/L 11-32 CBC (INCLUDES AUTOMATED DIFFERENTIAL)2020-07-14 22:34:00 Test Item Value Reference Range Interpretation Comments WBC (test code = WBC) 13.4 10\S\3/uL 4.5-11.0 H RBC (test code = RBC) 3.31 10\S\6/uL 3.80-5.80 L HGB (test code = HBG) 11.3 g/dL 12.0-15.5 L HCT (test code = HCT) 34.3 % 35.0-44.0 L MCV (test code = MCV) 103.6 fL 81.0-99.0 H MCH (test code = MCH) 34.1 pg 27.0-31.0 H MCHC (test code = MCHC) 32.9 g/dL 32.0-36.0 RDW (test code = RDW) 15.0 % 11.5-14.5 H PLT (test code = PLT) 276 10\S\3/uL 130-400 MPV (test code = MPV) 9.8 fL 9.4-12.4 NEUTROP # (test code = NE#) 11.7 10\S\3/uL 1.6-8.0 H LYMPH # (test code = LY#) 0.7 10\S\3/uL 1.1-3.5 L MONOCYTE # (test code = MO#) 0.9 10\S\3/uL 0.0-1.1 EOSINOPH # (test code = EO#) 0.0 10\S\3/uL 0.0-0.7 BASOPHIL # (test code = BA#) 0.1 10\S\3/uL 0.0-0.3 IG # (test code = IG#) 0.04 10\S\3/uL 0.00-0.06 NRBC # (test code = NRBC#) 0.00 10\S\3/uL 0.00-0.01 NEUTROPH % (test code = NE%) 87.5 % 35.0-73.0 H LYMPH % (test code = LY%) 5.1 % 20.0-55.0 L MONO % (test code = MO%) 6.6 % 2.5-10.0 EOSINOPH % (test code = EO%) 0.1 % 0.0-5.0 BASOPHIL % (test code = BA%) 0.4 % 0.0-2.0 IG % (test code = IG%) 0.3 % 0.0-0.8 NRBC% (test code = NRBC%) 0.0 % 0.0-0.2 MANDIFF (test code = MDIFF) NO RBC MORPH (test code = RBCMOR) NORMAL Urinalysis complete panel - [id number] 03:09:00 Test Item Value Reference Range Interpretation Comments Color of Urine by Auto (test light yellow code = 36969-4) Appearance of Urine (test code clear clear = 5767-9) Glucose [Presence] in Urine by negative negative Automated test strip (test code = 48471-9) Bilirubin.total [Mass/volume] negative negative in Urine (test code = 1977-) Ketones [Mass/volume] in Urine negative negative by Automated test strip (test code = 79065-7) Specific gravity of Urine by 1.004 1.003-1.030 Automated test strip (test code = 34997-7) blood urine (test code = blood trace negative urine) pH of Urine (test code = 5.500 5-9 2756-5) protein urine (UA) (test code = negative negative protein urine (UA)) Urobilinogen [Presence] in normal 0.2-1.0 Urine (test code = 68822-3) Nitrite [Presence] in Urine by negative negative Test strip (test code = 5802-4) Leukocyte esterase [Presence] =2 negative H in Urine by Automated test strip (test code = 86055-0) Erythrocytes [#/volume] in =1-5 0-5 Urine by Automated count (test code = 798-9) Leukocytes [#/area] in Urine =15-19 0-5 H sediment by Automated count (test code = 05241-3) Epithelial cells [Presence] in =1-5 0-5 Urine sediment by Light microscopy (test code = 63900-4) Bacteria identified in Urine by none detected none detect Culture (test code = 630-4) Casts [#/area] in Urine =2-5 none detect sediment by Automated count (test code = 63643-3) urine culture added? (test code yes = urine culture added?) [facility] - [id number] 03:09:00 Test Item Value Reference Range Interpretation Comments Color of Urine by Auto (test light yellow code = 94131-2) Appearance of Urine (test code clear clear = 5767-9) Glucose [Presence] in Urine by negative negative Automated test strip (test code = 08354-7) Bilirubin.total [Mass/volume] negative negative in Urine (test code = 1978-04) Ketones [Mass/volume] in Urine negative negative by Automated test strip (test code = 00145-7) Specific gravity of Urine by 1.004 1.003-1.030 Automated test strip (test code = 11295-1) blood urine (test code = blood trace negative urine) pH of Urine (test code = 5.500 5-9 2756-5) protein urine (UA) (test code = negative negative protein urine (UA)) Urobilinogen [Presence] in normal 0.2-1.0 Urine (test code = 46049-8) Nitrite [Presence] in Urine by negative negative Test strip (test code = 5802-4) Leukocyte esterase [Presence] =2 negative H in Urine by Automated test strip (test code = 98365-3) Erythrocytes [#/volume] in =1-5 0-5 Urine by Automated count (test code = 798-9) Leukocytes [#/area] in Urine =15-19 0-5 H sediment by Automated count (test code = 42812-7) Epithelial cells [Presence] in =1-5 0-5 Urine sediment by Light microscopy (test code = 29748-0) Bacteria identified in Urine by none detected none detect Culture (test code = 630-4) Casts [#/area] in Urine =2-5 none detect sediment by Automated count (test code = 49098-1) urine culture added? (test code yes = urine culture added?) [facility] GroupUr[facility] complete panel - [id number] 03:09:00 Test Item Value Reference Range Interpretation Comments Color of Urine by Auto (test light yellow code = 61907-8) Appearance of Urine (test code clear clear = 5767-9) Glucose [Presence] in Urine by negative negative Automated test strip (test code = 86252-3) Bilirubin.total [Mass/volume] negative negative in Urine (test code = 1978-6) Ketones [Mass/volume] in Urine negative negative by Automated test strip (test code = 66206-8) Specific gravity of Urine by 1.004 1.003-1.030 Automated test strip (test code = 21468-6) blood urine (test code = blood trace negative urine) pH of Urine (test code = 5.500 5-9 2756-5) protein urine (UA) (test code = negative negative protein urine (UA)) Urobilinogen [Presence] in normal 0.2-1.0 Urine (test code = 13875-6) Nitrite [Presence] in Urine by negative negative Test strip (test code = 5802-4) Leukocyte esterase [Presence] =2 negative H in Urine by Automated test strip (test code = 46978-4) Erythrocytes [#/volume] in =1-5 0-5 Urine by Automated count (test code = 798-9) Leukocytes [#/area] in Urine =15-19 0-5 H sediment by Automated count (test code = 47755-3) Epithelial cells [Presence] in =1-5 0-5 Urine sediment by Light microscopy (test code = 00032-2) Bacteria identified in Urine by none detected none detect Culture (test code = 630-4) Casts [#/area] in Urine =2-5 none detect sediment by Automated count (test code = 86786-6) urine culture added? (test code yes = urine culture added?) [facility] [id number] 03:09:00 Test Item Value Reference Range Interpretation Comments Color of Urine by Auto (test light yellow code = 60879-1) Appearance of Urine (test code clear clear = 5767-9) Glucose [Presence] in Urine by negative negative Automated test strip (test code = 28596-4) Bilirubin.total [Mass/volume] negative negative in Urine (test code = 1978-6) Ketones [Mass/volume] in Urine negative negative by Automated test strip (test code = 22926-1) Specific gravity of Urine by 1.004 1.003-1.030 Automated test strip (test code = 57695-8) blood urine (test code = blood trace negative urine) pH of Urine (test code = 5.500 5-9 2756-5) protein urine (UA) (test code = negative negative protein urine (UA)) Urobilinogen [Presence] in normal 0.2-1.0 Urine (test code = 61109-7) Nitrite [Presence] in Urine by negative negative Test strip (test code = 5802-4) Leukocyte esterase [Presence] =2 negative H in Urine by Automated test strip (test code = 15337-4) Erythrocytes [#/volume] in =1-5 0-5 Urine by Automated count (test code = 798-9) Leukocytes [#/area] in Urine =15-19 0-5 H sediment by Automated count (test code = 71852-7) Epithelial cells [Presence] in =1-5 0-5 Urine sediment by Light microscopy (test code = 31813-3) Bacteria identified in Urine by none detected none detect Culture (test code = 630-4) Casts [#/area] in Urine =2-5 none detect sediment by Automated count (test code = 74068-7) urine culture added? (test code yes = urine culture added?) [facility] W Auto Differential panel - [id number] 02:35:00 Test Item Value Reference Range Interpretation Comments white blood count (test code = 11.7 K/uL 4.0-11.5 white blood count) red blood count (test code = red 2.62 M/uL 3.80-5.20 L blood count) hemoglobin (test code = 9.2 g/dL 10.5-15.7 L hemoglobin) hematocrit (test code = 27.6 % 34.0-50.0 L hematocrit) MCV [Entitic volume] (test code = 105.3 fL 86-100 H 56606-3) mean corpuscular hemoglobin (test 35.1 pg 26.2-33.4 H code = mean corpuscular hemoglobin) mean corpuscular HGB conc (test 33.3 g/dL 30-34 code = mean corpuscular HGB conc) red cell distribution width (test 13.3 % 12.0-15.5 code = red cell distribution width) platelet count (test code = 204 K/uL 165-450 platelet count) mean platelet volume (test code = 9.6 fL 9.4-12.6 mean platelet volume) Segmented neutrophils/100 65.5 % 44.4-80.1 leukocytes in Blood (test code = 45799-5) Immature granulocytes [#/volume] 0.0 K/uL 0.0-0.03 in Blood (test code = 34972-1) lymphocyte% (test code = 20.6 % 10.0-50.0 lymphocyte%) mono % (test code = mono %) 11.7 % 3.6-12.0 eos % (test code = eos %) 1.3 % 0.0-5.4 Basophils/100 leukocytes in 0.6 % 0.1-1.2 Unspecified specimen (test code = 79528-1) Band form neutrophils [#/volume] 7.65 K/uL 1.56-6.13 H in Blood (test code = 82029-6) Lymphocytes [#/volume] in 2.4 K/uL 1.18-3.74 Unspecified specimen by Automated count (test code = 85307-8) mono # (test code = mono #) 1.37 K/uL 0.24-0.86 H eos # (test code = eos #) 0.15 K/uL 0.04-0.36 basophil # (test code = basophil 0.07 K/uL 0.01-0.08 #) NRBC% (test code = NRBC%) 0 /100 WBC 0-0.2 NRBC# (test code = NRBC#) 0 K/uL [facility], [facility] unspecified - [id number] 02:35:00NeutrophilsBandLymphocyteAtypical LymphMonocyteEosinophilBasophilPlatelet EstimatePlatelet Morphology HypochromasiaPoikilocytosisAnisocytosisTarget CellsBurr CellsAcanthocytesHypersegmented PolysMaNorth Mississippi Medical CenterBasic metabolic 2000 panel - Serum or [id number] 02:35:00 Test Item Value Reference Range Interpretation Comments Glucose [Mass/volume] in Serum or 123 mg/dL 82-115 H Plasma (test code = 2345-7) Urea nitrogen [Mass/volume] in 22 mg/dL 8-23 Serum or Plasma (test code = 3094-0) osmolality calculated,serum (test 279 mOsm/kg 280-300 L code = osmolality calculated,serum) creatinine (test code = 1.0 mg/dL 0.50-0.90 H creatinine) glomerular filtration rate (test 53.35 L code = glomerular filtration rate) Urea nitrogen/Creatinine [Mass 22.0 12-20 H Ratio] in Serum or Plasma (test code = 3097-3) sodium level (test code = sodium 137 mmol/L 135-145 level) potassium level (test code = 3.7 mmol/L 3.5-5.2 potassium level) chloride level (test code = 104 mmol/L 98-108 chloride level) CO2 (test code = CO2) 23 mmol/L 21-32 anion gap (test code = anion gap) 13.7 mEq/L 12-20 calcium level (test code = 8.5 mg/dL 8.8-10.2 L calcium level) [facility]Lact[facility] [[facility]] in Serum or [id number] 02:35:00 Test Item Value Reference Range Interpretation Comments lactic acid (test code = lactic 1.01 mmol/L 0.5-2.2 acid) [facility] 02:35:00 Test Item Value Reference Range Interpretation Comments Procalcitonin [Mass/volume] in 22.8 NG/mL 0.0-0.8 H Serum or Plasma (test code = 11644-5) [facility] Differential panel - [id number] 02:35:00 Test Item Value Reference Range Interpretation Comments white blood count (test code = 11.7 K/uL 4.0-11.5 white blood count) red blood count (test code = red 2.62 M/uL 3.80-5.20 L blood count) hemoglobin (test code = 9.2 g/dL 10.5-15.7 L hemoglobin) hematocrit (test code = 27.6 % 34.0-50.0 L hematocrit) MCV [Entitic volume] (test code = 105.3 fL 86-100 H 71775-9) mean corpuscular hemoglobin (test 35.1 pg 26.2-33.4 H code = mean corpuscular hemoglobin) mean corpuscular HGB conc (test 33.3 g/dL 30-34 code = mean corpuscular HGB conc) red cell distribution width (test 13.3 % 12.0-15.5 code = red cell distribution width) platelet count (test code = 204 K/uL 165-450 platelet count) mean platelet volume (test code = 9.6 fL 9.4-12.6 mean platelet volume) Segmented neutrophils/100 65.5 % 44.4-80.1 leukocytes in Blood (test code = 57873-0) Immature granulocytes [#/volume] 0.0 K/uL 0.0-0.03 in Blood (test code = 65081-9) lymphocyte% (test code = 20.6 % 10.0-50.0 lymphocyte%) mono % (test code = mono %) 11.7 % 3.6-12.0 eos % (test code = eos %) 1.3 % 0.0-5.4 Basophils/100 leukocytes in 0.6 % 0.1-1.2 Unspecified specimen (test code = 31876-8) Band form neutrophils [#/volume] 7.65 K/uL 1.56-6.13 H in Blood (test code = 44925-2) Lymphocytes [#/volume] in 2.4 K/uL 1.18-3.74 Unspecified specimen by Automated count (test code = 71802-0) mono # (test code = mono #) 1.37 K/uL 0.24-0.86 H eos # (test code = eos #) 0.15 K/uL 0.04-0.36 basophil # (test code = basophil 0.07 K/uL 0.01-0.08 #) NRBC% (test code = NRBC%) 0 /100 WBC 0-0.2 NRBC# (test code = NRBC#) 0 K/uL [facility]Different[facility], method unspecified - [id number] 02:35:00NeutrophilsBandLymphocyteAtypical LymphMonocyteEosinophilBasophilPlatelet EstimatePlatelet Morphology HypochromasiaPoikilocytosisAnisocytosisTarget CellsBurr CellsAcanthocytesHypersegmented PolysSouth Sunflower [facility] HospitalBasic metabolic 2000 panel - Serum or [id number] 02:35:00 Test Item Value Reference Range Interpretation Comments Glucose [Mass/volume] in Serum or 123 mg/dL 82-115 H Plasma (test code = 2345-7) Urea nitrogen [Mass/volume] in 22 mg/dL 8-23 Serum or Plasma (test code = 3094-0) osmolality calculated,serum (test 279 mOsm/kg 280-300 L code = osmolality calculated,serum) creatinine (test code = 1.0 mg/dL 0.50-0.90 H creatinine) glomerular filtration rate (test 53.35 L code = glomerular filtration rate) Urea nitrogen/Creatinine [Mass 22.0 12-20 H Ratio] in Serum or Plasma (test code = 3097-3) sodium level (test code = sodium 137 mmol/L 135-145 level) potassium level (test code = 3.7 mmol/L 3.5-5.2 potassium level) chloride level (test code = 104 mmol/L 98-108 chloride level) CO2 (test code = CO2) 23 mmol/L 21-32 anion gap (test code = anion gap) 13.7 mEq/L 12-20 calcium level (test code = 8.5 mg/dL 8.8-10.2 L calcium level) [facility] HospitalLactate [Mass/volume] in Serum or [id number] 02:35:00 Test Item Value Reference Range Interpretation Comments lactic acid (test code = lactic 1.01 mmol/L 0.5-2.2 acid) [facility]allprocal[facility] 02:35:00 Test Item Value Reference Range Interpretation Comments Procalcitonin [Mass/volume] in 22.8 NG/mL 0.0-0.8 H Serum or Plasma (test code = 51530-3) [facility] W Auto Differential panel - [id number] 02:35:00 Test Item Value Reference Range Interpretation Comments white blood count (test code = 11.7 K/uL 4.0-11.5 white blood count) red blood count (test code = red 2.62 M/uL 3.80-5.20 L blood count) hemoglobin (test code = 9.2 g/dL 10.5-15.7 L hemoglobin) hematocrit (test code = 27.6 % 34.0-50.0 L hematocrit) MCV [Entitic volume] (test code = 105.3 fL 86-100 H 95037-0) mean corpuscular hemoglobin (test 35.1 pg 26.2-33.4 H code = mean corpuscular hemoglobin) mean corpuscular HGB conc (test 33.3 g/dL 30-34 code = mean corpuscular HGB conc) red cell distribution width (test 13.3 % 12.0-15.5 code = red cell distribution width) platelet count (test code = 204 K/uL 165-450 platelet count) mean platelet volume (test code = 9.6 fL 9.4-12.6 mean platelet volume) Segmented neutrophils/100 65.5 % 44.4-80.1 leukocytes in Blood (test code = 78085-6) Immature granulocytes [#/volume] 0.0 K/uL 0.0-0.03 in Blood (test code = 66585-3) lymphocyte% (test code = 20.6 % 10.0-50.0 lymphocyte%) mono % (test code = mono %) 11.7 % 3.6-12.0 eos % (test code = eos %) 1.3 % 0.0-5.4 Basophils/100 leukocytes in 0.6 % 0.1-1.2 Unspecified specimen (test code = 27785-2) Band form neutrophils [#/volume] 7.65 K/uL 1.56-6.13 H in Blood (test code = 93715-9) Lymphocytes [#/volume] in 2.4 K/uL 1.18-3.74 Unspecified specimen by Automated count (test code = 25882-8) mono # (test code = mono #) 1.37 K/uL 0.24-0.86 H eos # (test code = eos #) 0.15 K/uL 0.04-0.36 basophil # (test code = basophil 0.07 K/uL 0.01-0.08 #) NRBC% (test code = NRBC%) 0 /100 WBC 0-0.2 NRBC# (test code = NRBC#) 0 K/uL [facility]Differential panel, method unspecified - [id number] 02:35:00NeutrophilsBandLymphocyteAtypical LymphMonocyteEosinophilBasophilPlatelet EstimatePlatelet Morphology HypochromasiaPoikilocytosisAnisocytosisTarget CellsBurr CellsAcanthocytesHypersegmented PolysMataAnderson Regional Medical CenterBasic metabolic 2000 panel - Serum or [id number] 02:35:00 Test Item Value Reference Range Interpretation Comments Glucose [Mass/volume] in Serum or 123 mg/dL 82-115 H Plasma (test code = 2345-7) Urea nitrogen [Mass/volume] in 22 mg/dL 8-23 Serum or Plasma (test code = 3094-0) osmolality calculated,serum (test 279 mOsm/kg 280-300 L code = osmolality calculated,serum) creatinine (test code = 1.0 mg/dL 0.50-0.90 H creatinine) glomerular filtration rate (test 53.35 L code = glomerular filtration rate) Urea nitrogen/Creatinine [Mass 22.0 12-20 H Ratio] in Serum or Plasma (test code = 3097-3) sodium level (test code = sodium 137 mmol/L 135-145 level) potassium level (test code = 3.7 mmol/L 3.5-5.2 potassium level) chloride level (test code = 104 mmol/L 98-108 chloride level) CO2 (test code = CO2) 23 mmol/L 21-32 anion gap (test code = anion gap) 13.7 mEq/L 12-20 calcium level (test code = 8.5 mg/dL 8.8-10.2 L calcium level) [facility] HospitalLactate [Mass/volume] in Serum or [id number] 02:35:00 Test Item Value Reference Range Interpretation Comments lactic acid (test code = lactic 1.01 mmol/L 0.5-2.2 acid) [facility] 02:35:00 Test Item Value Reference Range Interpretation Comments Procalcitonin [Mass/volume] in 22.8 NG/mL 0.0-0.8 H Serum or Plasma (test code = 08787-1) [facility] W Auto Differential panel - [id number] 02:35:00 Test Item Value Reference Range Interpretation Comments white blood count (test code = 11.7 K/uL 4.0-11.5 white blood count) red blood count (test code = red 2.62 M/uL 3.80-5.20 L blood count) hemoglobin (test code = 9.2 g/dL 10.5-15.7 L hemoglobin) hematocrit (test code = 27.6 % 34.0-50.0 L hematocrit) MCV [Entitic volume] (test code = 105.3 fL 86-100 H 71717-7) mean corpuscular hemoglobin (test 35.1 pg 26.2-33.4 H code = mean corpuscular hemoglobin) mean corpuscular HGB conc (test 33.3 g/dL 30-34 code = mean corpuscular HGB conc) red cell distribution width (test 13.3 % 12.0-15.5 code = red cell distribution width) platelet count (test code = 204 K/uL 165-450 platelet count) mean platelet volume (test code = 9.6 fL 9.4-12.6 mean platelet volume) Segmented neutrophils/100 65.5 % 44.4-80.1 leukocytes in Blood (test code = 85806-7) Immature granulocytes [#/volume] 0.0 K/uL 0.0-0.03 in Blood (test code = 05146-2) lymphocyte% (test code = 20.6 % 10.0-50.0 lymphocyte%) mono % (test code = mono %) 11.7 % 3.6-12.0 eos % (test code = eos %) 1.3 % 0.0-5.4 Basophils/100 leukocytes in 0.6 % 0.1-1.2 Unspecified specimen (test code = 51611-9) Band form neutrophils [#/volume] 7.65 K/uL 1.56-6.13 H in Blood (test code = 43780-1) Lymphocytes [#/volume] in 2.4 K/uL 1.18-3.74 Unspecified specimen by Automated count (test code = 67987-1) mono # (test code = mono #) 1.37 K/uL 0.24-0.86 H eos # (test code = eos #) 0.15 K/uL 0.04-0.36 basophil # (test code = basophil 0.07 K/uL 0.01-0.08 #) NRBC% (test code = NRBC%) 0 /100 WBC 0-0.2 NRBC# (test code = NRBC#) 0 K/uL [facility]Differential panel, method unspecified - [id number] 02:35:00NeutrophilsBandLymphocyteAtypical LymphMonocyteEosinophilBasophilPlatelet EstimatePlatelet Morphology HypochromasiaPoikilocytosisAnisocytosisTarget CellsBurr CellsAcanthocytesHypersegmented PolysMataAnderson Regional Medical CenterBasic metabolic 2000 panel - Serum or [id number] 02:35:00 Test Item Value Reference Range Interpretation Comments Glucose [Mass/volume] in Serum or 123 mg/dL 82-115 H Plasma (test code = 2345-7) Urea nitrogen [Mass/volume] in 22 mg/dL 8-23 Serum or Plasma (test code = 3094-0) osmolality calculated,serum (test 279 mOsm/kg 280-300 L code = osmolality calculated,serum) creatinine (test code = 1.0 mg/dL 0.50-0.90 H creatinine) glomerular filtration rate (test 53.35 L code = glomerular filtration rate) Urea nitrogen/Creatinine [Mass 22.0 12-20 H Ratio] in Serum or Plasma (test code = 3097-3) sodium level (test code = sodium 137 mmol/L 135-145 level) potassium level (test code = 3.7 mmol/L 3.5-5.2 potassium level) chloride level (test code = 104 mmol/L 98-108 chloride level) CO2 (test code = CO2) 23 mmol/L 21-32 anion gap (test code = anion gap) 13.7 mEq/L 12-20 calcium level (test code = 8.5 mg/dL 8.8-10.2 L calcium level) [facility] HospitalLactate [Mass/volume] in Serum or [id number] 02:35:00 Test Item Value Reference Range Interpretation Comments lactic acid (test code = lactic 1.01 mmol/L 0.5-2.2 acid) [facility] 02:35:00 Test Item Value Reference Range Interpretation Comments Procalcitonin [Mass/volume] in 22.8 NG/mL 0.0-0.8 H Serum or Plasma (test code = 04949-1) [facility] W Auto Differential panel - [id number] 02:02:00 Test Item Value Reference Range Interpretation Comments white blood count (test code = 15.2 K/uL 4.0-11.5 white blood count) red blood count (test code = red 2.87 M/uL 3.80-5.20 L blood count) hemoglobin (test code = 9.9 g/dL 10.5-15.7 L hemoglobin) hematocrit (test code = 30.4 % 34.0-50.0 L hematocrit) MCV [Entitic volume] (test code = 105.9 fL 86-100 H 70575-3) mean corpuscular hemoglobin (test 34.5 pg 26.2-33.4 H code = mean corpuscular hemoglobin) mean corpuscular HGB conc (test 32.6 g/dL 30-34 code = mean corpuscular HGB conc) red cell distribution width (test 13.1 % 12.0-15.5 code = red cell distribution width) platelet count (test code = 236 K/uL 165-450 platelet count) mean platelet volume (test code = 8.9 fL 9.4-12.6 L mean platelet volume) Segmented neutrophils/100 80.2 % 44.4-80.1 H leukocytes in Blood (test code = 00241-4) Immature granulocytes [#/volume] 0.1 K/uL 0.0-0.03 H in Blood (test code = 12258-1) lymphocyte% (test code = 11.4 % 10.0-50.0 lymphocyte%) mono % (test code = mono %) 7.6 % 3.6-12.0 eos % (test code = eos %) 0.1 % 0.0-5.4 Basophils/100 leukocytes in 0.3 % 0.1-1.2 Unspecified specimen (test code = 87210-1) Band form neutrophils [#/volume] 12.20 K/uL 1.56-6.13 H in Blood (test code = 07489-9) Lymphocytes [#/volume] in 1.7 K/uL 1.18-3.74 Unspecified specimen by Automated count (test code = 28534-2) mono # (test code = mono #) 1.15 K/uL 0.24-0.86 H eos # (test code = eos #) 0.01 K/uL 0.04-0.36 L basophil # (test code = basophil 0.05 K/uL 0.01-0.08 #) NRBC% (test code = NRBC%) 0 /100 WBC 0-0.2 NRBC# (test code = NRBC#) 0 K/uL [facility]Differential [facility], method unspecified - [id number] 02:02:00NeutrophilsBandLymphocyteAtypical LymphMonocyteEosinophilPlatelet EstimatePlatelet MorphologyMataAnderson Regional Medical CenterBasic metabolic 2000 panel - Serum or [id number] 02:02:00 Test Item Value Reference Range Interpretation Comments Glucose [Mass/volume] in Serum or 167 mg/dL 82-115 H Plasma (test code = 2345-7) Urea nitrogen [Mass/volume] in 35 mg/dL 8-23 H Serum or Plasma (test code = 3094-0) osmolality calculated,serum (test 288 mOsm/kg 280-300 code = osmolality calculated,serum) creatinine (test code = 1.2 mg/dL 0.50-0.90 H creatinine) glomerular filtration rate (test 43.23 L code = glomerular filtration rate) Urea nitrogen/Creatinine [Mass 29.2 12-20 H Ratio] in Serum or Plasma (test code = 3097-3) sodium level (test code = sodium 138 mmol/L 135-145 level) potassium level (test code = 3.4 mmol/L 3.5-5.2 L potassium level) chloride level (test code = 105 mmol/L 98-108 chloride level) CO2 (test code = CO2) 19 mmol/L 21-32 L anion gap (test code = anion gap) 17.4 mEq/L 12-20 calcium level (test code = 8.7 mg/dL 8.8-10.2 L calcium level) [facility] HospitalLactate [Mass/volume] in Serum or [id number] 02:02:00 Test Item Value Reference Range Interpretation Comments lactic acid (test code = lactic 2.32 mmol/L 0.5-2.2 H acid) [facility] 02:02:00 Test Item Value Reference Range Interpretation Comments Procalcitonin [Mass/volume] in 23.1 NG/mL 0.0-0.8 Serum or Plasma (test code = 60724-7) [facility]CB [facility] Differential panel - [id number] 02:02:00 Test Item Value Reference Range Interpretation Comments white blood count (test code = 15.2 K/uL 4.0-11.5 white blood count) red blood count (test code = red 2.87 M/uL 3.80-5.20 L blood count) hemoglobin (test code = 9.9 g/dL 10.5-15.7 L hemoglobin) hematocrit (test code = 30.4 % 34.0-50.0 L hematocrit) MCV [Entitic volume] (test code = 105.9 fL 86-100 H 63107-3) mean corpuscular hemoglobin (test 34.5 pg 26.2-33.4 H code = mean corpuscular hemoglobin) mean corpuscular HGB conc (test 32.6 g/dL 30-34 code = mean corpuscular HGB conc) red cell distribution width (test 13.1 % 12.0-15.5 code = red cell distribution width) platelet count (test code = 236 K/uL 165-450 platelet count) mean platelet volume (test code = 8.9 fL 9.4-12.6 L mean platelet volume) Segmented neutrophils/100 80.2 % 44.4-80.1 H leukocytes in Blood (test code = 27156-8) Immature granulocytes [#/volume] 0.1 K/uL 0.0-0.03 H in Blood (test code = 51084-3) lymphocyte% (test code = 11.4 % 10.0-50.0 lymphocyte%) mono % (test code = mono %) 7.6 % 3.6-12.0 eos % (test code = eos %) 0.1 % 0.0-5.4 Basophils/100 leukocytes in 0.3 % 0.1-1.2 Unspecified specimen (test code = 02561-0) Band form neutrophils [#/volume] 12.20 K/uL 1.56-6.13 H in Blood (test code = 90717-0) Lymphocytes [#/volume] in 1.7 K/uL 1.18-3.74 Unspecified specimen by Automated count (test code = 93696-6) mono # (test code = mono #) 1.15 K/uL 0.24-0.86 H eos # (test code = eos #) 0.01 K/uL 0.04-0.36 L basophil # (test code = basophil 0.05 K/uL 0.01-0.08 #) NRBC% (test code = NRBC%) 0 /100 WBC 0-0.2 NRBC# (test code = NRBC#) 0 K/uL [facility]Different[facility], method unspecified - [id number] 02:02:00NeutrophilsBandLymphocyteAtypical LymphMonocyteEosinophilPlatelet EstimatePlatelet MorphologyMataAnderson Regional Medical CenterBasi metabolic 2000 panel - Serum or [id number] 02:02:00 Test Item Value Reference Range Interpretation Comments Glucose [Mass/volume] in Serum or 167 mg/dL 82-115 H Plasma (test code = 2345-7) Urea nitrogen [Mass/volume] in 35 mg/dL 8-23 H Serum or Plasma (test code = 3094-0) osmolality calculated,serum (test 288 mOsm/kg 280-300 code = osmolality calculated,serum) creatinine (test code = 1.2 mg/dL 0.50-0.90 H creatinine) glomerular filtration rate (test 43.23 L code = glomerular filtration rate) Urea nitrogen/Creatinine [Mass 29.2 12-20 H Ratio] in Serum or Plasma (test code = 3097-3) sodium level (test code = sodium 138 mmol/L 135-145 level) potassium level (test code = 3.4 mmol/L 3.5-5.2 L potassium level) chloride level (test code = 105 mmol/L 98-108 chloride level) CO2 (test code = CO2) 19 mmol/L 21-32 L anion gap (test code = anion gap) 17.4 mEq/L 12-20 calcium level (test code = 8.7 mg/dL 8.8-10.2 L calcium level) [facility] HospitalLactate [Mass/volume] in Serum or [id number] 02:02:00 Test Item Value Reference Range Interpretation Comments lactic acid (test code = lactic 2.32 mmol/L 0.5-2.2 H acid) [facility] 02:02:00 Test Item Value Reference Range Interpretation Comments Procalcitonin [Mass/volume] in 23.1 NG/mL 0.0-0.8 Serum or Plasma (test code = 15458-5) [facility] W Auto Differential panel - [id number] 02:02:00 Test Item Value Reference Range Interpretation Comments white blood count (test code = 15.2 K/uL 4.0-11.5 white blood count) red blood count (test code = red 2.87 M/uL 3.80-5.20 L blood count) hemoglobin (test code = 9.9 g/dL 10.5-15.7 L hemoglobin) hematocrit (test code = 30.4 % 34.0-50.0 L hematocrit) MCV [Entitic volume] (test code = 105.9 fL 86-100 H 16460-5) mean corpuscular hemoglobin (test 34.5 pg 26.2-33.4 H code = mean corpuscular hemoglobin) mean corpuscular HGB conc (test 32.6 g/dL 30-34 code = mean corpuscular HGB conc) red cell distribution width (test 13.1 % 12.0-15.5 code = red cell distribution width) platelet count (test code = 236 K/uL 165-450 platelet count) mean platelet volume (test code = 8.9 fL 9.4-12.6 L mean platelet volume) Segmented neutrophils/100 80.2 % 44.4-80.1 H leukocytes in Blood (test code = 11364-1) Immature granulocytes [#/volume] 0.1 K/uL 0.0-0.03 H in Blood (test code = 24701-1) lymphocyte% (test code = 11.4 % 10.0-50.0 lymphocyte%) mono % (test code = mono %) 7.6 % 3.6-12.0 eos % (test code = eos %) 0.1 % 0.0-5.4 Basophils/100 leukocytes in 0.3 % 0.1-1.2 Unspecified specimen (test code = 58929-0) Band form neutrophils [#/volume] 12.20 K/uL 1.56-6.13 H in Blood (test code = 94376-0) Lymphocytes [#/volume] in 1.7 K/uL 1.18-3.74 Unspecified specimen by Automated count (test code = 57301-9) mono # (test code = mono #) 1.15 K/uL 0.24-0.86 H eos # (test code = eos #) 0.01 K/uL 0.04-0.36 L basophil # (test code = basophil 0.05 K/uL 0.01-0.08 #) NRBC% (test code = NRBC%) 0 /100 WBC 0-0.2 NRBC# (test code = NRBC#) 0 K/uL [facility]Different[facility], method unspecified - [id number] 02:02:00NeutrophilsBandLymphocyteAtypical LymphMonocyteEosinophilPlatelet EstimatePlatelet MorphologyMaNorth Mississippi Medical CenterBasi metabolic 2000 panel - Serum or [id number] 02:02:00 Test Item Value Reference Range Interpretation Comments Glucose [Mass/volume] in Serum or 167 mg/dL 82-115 H Plasma (test code = 2345-7) Urea nitrogen [Mass/volume] in 35 mg/dL 8-23 H Serum or Plasma (test code = 3094-0) osmolality calculated,serum (test 288 mOsm/kg 280-300 code = osmolality calculated,serum) creatinine (test code = 1.2 mg/dL 0.50-0.90 H creatinine) glomerular filtration rate (test 43.23 L code = glomerular filtration rate) Urea nitrogen/Creatinine [Mass 29.2 12-20 H Ratio] in Serum or Plasma (test code = 3097-3) sodium level (test code = sodium 138 mmol/L 135-145 level) potassium level (test code = 3.4 mmol/L 3.5-5.2 L potassium level) chloride level (test code = 105 mmol/L 98-108 chloride level) CO2 (test code = CO2) 19 mmol/L 21-32 L anion gap (test code = anion gap) 17.4 mEq/L 12-20 calcium level (test code = 8.7 mg/dL 8.8-10.2 L calcium level) [facility] HospitalLactate [Mass/volume] in Serum or [id number] 02:02:00 Test Item Value Reference Range Interpretation Comments lactic acid (test code = lactic 2.32 mmol/L 0.5-2.2 H acid) [facility] 02:02:00 Test Item Value Reference Range Interpretation Comments Procalcitonin [Mass/volume] in 23.1 NG/mL 0.0-0.8 Serum or Plasma (test code = 50826-5) [facility] W Auto Differential panel - [id number] 02:02:00 Test Item Value Reference Range Interpretation Comments white blood count (test code = 15.2 K/uL 4.0-11.5 white blood count) red blood count (test code = red 2.87 M/uL 3.80-5.20 L blood count) hemoglobin (test code = 9.9 g/dL 10.5-15.7 L hemoglobin) hematocrit (test code = 30.4 % 34.0-50.0 L hematocrit) MCV [Entitic volume] (test code = 105.9 fL 86-100 H 49654-0) mean corpuscular hemoglobin (test 34.5 pg 26.2-33.4 H code = mean corpuscular hemoglobin) mean corpuscular HGB conc (test 32.6 g/dL 30-34 code = mean corpuscular HGB conc) red cell distribution width (test 13.1 % 12.0-15.5 code = red cell distribution width) platelet count (test code = 236 K/uL 165-450 platelet count) mean platelet volume (test code = 8.9 fL 9.4-12.6 L mean platelet volume) Segmented neutrophils/100 80.2 % 44.4-80.1 H leukocytes in Blood (test code = 27061-7) Immature granulocytes [#/volume] 0.1 K/uL 0.0-0.03 H in Blood (test code = 46623-6) lymphocyte% (test code = 11.4 % 10.0-50.0 lymphocyte%) mono % (test code = mono %) 7.6 % 3.6-12.0 eos % (test code = eos %) 0.1 % 0.0-5.4 Basophils/100 leukocytes in 0.3 % 0.1-1.2 Unspecified specimen (test code = 39865-8) Band form neutrophils [#/volume] 12.20 K/uL 1.56-6.13 H in Blood (test code = 78534-8) Lymphocytes [#/volume] in 1.7 K/uL 1.18-3.74 Unspecified specimen by Automated count (test code = 61663-4) mono # (test code = mono #) 1.15 K/uL 0.24-0.86 H eos # (test code = eos #) 0.01 K/uL 0.04-0.36 L basophil # (test code = basophil 0.05 K/uL 0.01-0.08 #) NRBC% (test code = NRBC%) 0 /100 WBC 0-0.2 NRBC# (test code = NRBC#) 0 K/uL [facility]Different[facility], method unspecified - [id number] 02:02:00NeutrophilsBandLymphocyteAtypical LymphMonocyteEosinophilPlatelet EstimatePlatelet MorphologyMaNorth Mississippi Medical CenterBasic metabolic 2000 panel - Serum or [id number] 02:02:00 Test Item Value Reference Range Interpretation Comments Glucose [Mass/volume] in Serum or 167 mg/dL 82-115 H Plasma (test code = 2345-7) Urea nitrogen [Mass/volume] in 35 mg/dL 8-23 H Serum or Plasma (test code = 3094-0) osmolality calculated,serum (test 288 mOsm/kg 280-300 code = osmolality calculated,serum) creatinine (test code = 1.2 mg/dL 0.50-0.90 H creatinine) glomerular filtration rate (test 43.23 L code = glomerular filtration rate) Urea nitrogen/Creatinine [Mass 29.2 12-20 H Ratio] in Serum or Plasma (test code = 3097-3) sodium level (test code = sodium 138 mmol/L 135-145 level) potassium level (test code = 3.4 mmol/L 3.5-5.2 L potassium level) chloride level (test code = 105 mmol/L 98-108 chloride level) CO2 (test code = CO2) 19 mmol/L 21-32 L anion gap (test code = anion gap) 17.4 mEq/L 12-20 calcium level (test code = 8.7 mg/dL 8.8-10.2 L calcium level) [facility] HospitalLactate [Mass/volume] in Serum or [id number] 02:02:00 Test Item Value Reference Range Interpretation Comments lactic acid (test code = lactic 2.32 mmol/L 0.5-2.2 H acid) [facility] 02:02:00 Test Item Value Reference Range Interpretation Comments Procalcitonin [Mass/volume] in 23.1 NG/mL 0.0-0.8 Serum or Plasma (test code = 32742-7) [facility] HospitalUrinalysis complete panel - [id number] 09:18:00 Test Item Value Reference Range Interpretation Comments Color of Urine by Auto (test light yellow code = 10519-7) Appearance of Urine (test code = SL cloudy clear A 5767-9) Glucose [Presence] in Urine by negative negative Automated test strip (test code = 81564-5) Bilirubin.total [Mass/volume] in negative negative Urine (test code = 1978-6) Ketones [Mass/volume] in Urine negative negative by Automated test strip (test code = 95205-4) Specific gravity of Urine by 1.009 1.003-1.030 Automated test strip (test code = 85764-5) blood urine (test code = blood =1 negative H urine) pH of Urine (test code = 2756-5) 5.500 5-9 protein urine (UA) (test code = trace negative protein urine (UA)) Urobilinogen [Presence] in Urine normal 0.2-1.0 (test code = 50429-3) Nitrite [Presence] in Urine by negative negative Test strip (test code = 5802-4) Leukocyte esterase [Presence] in =4 negative H Urine by Automated test strip (test code = 69888-8) Erythrocytes [#/volume] in Urine =1-5 0-5 by Automated count (test code = 798-9) Leukocytes [#/area] in Urine >50 0-5 H sediment by Automated count (test code = 58333-7) Epithelial cells [Presence] in <1 0-5 Urine sediment by Light microscopy (test code = 55246-8) Bacteria identified in Urine by small(1 none detect Culture (test code = 630-4) Casts [#/area] in Urine sediment hyaline 0-5 none detect by Automated count (test code = 40827-3) urine culture added? (test code yes = urine culture added?) yeast, urine (test code = yeast, none seen none detect urine) path casts,U (test code = path none seen none detect casts,U) [facility] HospitalBacteria identified in Urine by [id number] 09:18:00 Test Item Value Reference Range Interpretation Comments Bacteria identified in mixed skin brett. no Urine by Culture (test pathogen present code = 630-4) after 2 days. [facility] HospitalUrinal[facility] complete panel - [id number] 09:18:00 Test Item Value Reference Range Interpretation Comments Color of Urine by Auto (test light yellow code = 88609-8) Appearance of Urine (test code = SL cloudy clear A 5767-9) Glucose [Presence] in Urine by negative negative Automated test strip (test code = 37272-6) Bilirubin.total [Mass/volume] in negative negative Urine (test code = 1978-6) Ketones [Mass/volume] in Urine negative negative by Automated test strip (test code = 34223-9) Specific gravity of Urine by 1.009 1.003-1.030 Automated test strip (test code = 17921-6) blood urine (test code = blood =1 negative H urine) pH of Urine (test code = 2756-5) 5.500 5-9 protein urine (UA) (test code = trace negative protein urine (UA)) Urobilinogen [Presence] in Urine normal 0.2-1.0 (test code = 91205-9) Nitrite [Presence] in Urine by negative negative Test strip (test code = 5802-4) Leukocyte esterase [Presence] in =4 negative H Urine by Automated test strip (test code = 44305-3) Erythrocytes [#/volume] in Urine =1-5 0-5 by Automated count (test code = 798-9) Leukocytes [#/area] in Urine >50 0-5 H sediment by Automated count (test code = 52889-6) Epithelial cells [Presence] in <1 0-5 Urine sediment by Light microscopy (test code = 33625-4) Bacteria identified in Urine by small(1 none detect Culture (test code = 630-4) Casts [#/area] in Urine sediment hyaline 0-5 none detect by Automated count (test code = 26007-7) urine culture added? (test code yes = urine culture added?) yeast, urine (test code = yeast, none seen none detect urine) path casts,U (test code = path none seen none detect casts,U) [facility] by [id number] 09:18:00 Test Item Value Reference Range Interpretation Comments Bacteria identified in mixed skin brett. no Urine by Culture (test pathogen present code = 630-4) after 2 days. [facility] complete [facility] - [id number] 09:18:00 Test Item Value Reference Range Interpretation Comments Color of Urine by Auto (test light yellow code = 39753-9) Appearance of Urine (test code = SL cloudy clear A 5767-9) Glucose [Presence] in Urine by negative negative Automated test strip (test code = 78198-4) Bilirubin.total [Mass/volume] in negative negative Urine (test code = 1978-6) Ketones [Mass/volume] in Urine negative negative by Automated test strip (test code = 22128-6) Specific gravity of Urine by 1.009 1.003-1.030 Automated test strip (test code = 50898-1) blood urine (test code = blood =1 negative H urine) pH of Urine (test code = 2756-5) 5.500 5-9 protein urine (UA) (test code = trace negative protein urine (UA)) Urobilinogen [Presence] in Urine normal 0.2-1.0 (test code = 16785-9) Nitrite [Presence] in Urine by negative negative Test strip (test code = 5802-4) Leukocyte esterase [Presence] in =4 negative H Urine by Automated test strip (test code = 66368-6) Erythrocytes [#/volume] in Urine =1-5 0-5 by Automated count (test code = 798-9) Leukocytes [#/area] in Urine >50 0-5 H sediment by Automated count (test code = 75828-5) Epithelial cells [Presence] in <1 0-5 Urine sediment by Light microscopy (test code = 77393-8) Bacteria identified in Urine by small(1 none detect Culture (test code = 630-4) Casts [#/area] in Urine sediment hyaline 0-5 none detect by Automated count (test code = 53457-5) urine culture added? (test code yes = urine culture added?) yeast, urine (test code = yeast, none seen none detect urine) path casts,U (test code = path none seen none detect casts,U) [facility] by [id number] 09:18:00 Test Item Value Reference Range Interpretation Comments Bacteria identified in mixed skin brett. no Urine by Culture (test pathogen present code = 630-4) after 2 days. [facility] - [id number] 09:18:00 Test Item Value Reference Range Interpretation Comments Color of Urine by Auto (test light yellow code = 90684-9) Appearance of Urine (test code = SL cloudy clear A 5767-9) Glucose [Presence] in Urine by negative negative Automated test strip (test code = 23652-5) Bilirubin.total [Mass/volume] in negative negative Urine (test code = 1978-6) Ketones [Mass/volume] in Urine negative negative by Automated test strip (test code = 92226-0) Specific gravity of Urine by 1.009 1.003-1.030 Automated test strip (test code = 69240-2) blood urine (test code = blood =1 negative H urine) pH of Urine (test code = 2756-5) 5.500 5-9 protein urine (UA) (test code = trace negative protein urine (UA)) Urobilinogen [Presence] in Urine normal 0.2-1.0 (test code = 33637-1) Nitrite [Presence] in Urine by negative negative Test strip (test code = 5802-4) Leukocyte esterase [Presence] in =4 negative H Urine by Automated test strip (test code = 98136-2) Erythrocytes [#/volume] in Urine =1-5 0-5 by Automated count (test code = 798-9) Leukocytes [#/area] in Urine >50 0-5 H sediment by Automated count (test code = 95982-1) Epithelial cells [Presence] in <1 0-5 Urine sediment by Light microscopy (test code = 07837-2) Bacteria identified in Urine by small(1 none detect Culture (test code = 630-4) Casts [#/area] in Urine sediment hyaline 0-5 none detect by Automated count (test code = 59272-9) urine culture added? (test code yes = urine culture added?) yeast, urine (test code = yeast, none seen none detect urine) path casts,U (test code = path none seen none detect casts,U) [facility] by [id number] 09:18:00 Test Item Value Reference Range Interpretation Comments Bacteria identified in mixed skin brett. no Urine by Culture (test pathogen present code = 630-4) after 2 days. [facility]Lact[facility] [Mass/volume] in Serum or [id number] 08:51:00 Test Item Value Reference Range Interpretation Comments lactic acid (test code = lactic 1.50 mmol/L 0.5-2.2 acid) [facility] GroupLactate [Mass/volume] in Serum or [id number] 08:51:00 Test Item Value Reference Range Interpretation Comments lactic acid (test code = lactic 1.50 mmol/L 0.5-2.2 acid) [facility] GroupLactate [Mass/volume] in Serum or [id number] 08:51:00 Test Item Value Reference Range Interpretation Comments lactic acid (test code = lactic 1.50 mmol/L 0.5-2.2 acid) [facility] GroupLactate [Mass/volume] in Serum or [id number] 08:51:00 Test Item Value Reference Range Interpretation Comments lactic acid (test code = lactic 1.50 mmol/L 0.5-2.2 acid) [facility] GroupLactate [Mass/volume] in Serum or [id number] 06:16:00 Test Item Value Reference Range Interpretation Comments lactic acid (test code = lactic 2.40 mmol/L 0.5-2.2 H acid) [facility] GroupLactate [Mass/volume] in Serum or [id number] 06:16:00 Test Item Value Reference Range Interpretation Comments lactic acid (test code = lactic 2.40 mmol/L 0.5-2.2 H acid) [facility] GroupLactate [Mass/volume] in Serum or [id number] 06:16:00 Test Item Value Reference Range Interpretation Comments lactic acid (test code = lactic 2.40 mmol/L 0.5-2.2 H acid) [facility] GroupLactate [Mass/volume] in Serum or [id number] 06:16:00 Test Item Value Reference Range Interpretation Comments lactic acid (test code = lactic 2.40 mmol/L 0.5-2.2 H acid) [facility] W Auto Differential panel - [id number] 05:20:00 Test Item Value Reference Range Interpretation Comments white blood count (test code = 10.7 K/uL 4.0-11.5 white blood count) red blood count (test code = red 3.15 M/uL 3.80-5.20 L blood count) hemoglobin (test code = 11.0 g/dL 10.5-15.7 hemoglobin) hematocrit (test code = 32.9 % 34.0-50.0 L hematocrit) MCV [Entitic volume] (test code = 104.4 fL 86-100 H 67000-7) mean corpuscular hemoglobin (test 34.9 pg 26.2-33.4 H code = mean corpuscular hemoglobin) mean corpuscular HGB conc (test 33.4 g/dL 30-34 code = mean corpuscular HGB conc) red cell distribution width (test 12.8 % 12.0-15.5 code = red cell distribution width) platelet count (test code = 256 K/uL 165-450 platelet count) mean platelet volume (test code = 9.0 fL 9.4-12.6 L mean platelet volume) Segmented neutrophils/100 84.5 % 44.4-80.1 H leukocytes in Blood (test code = 53630-3) Immature granulocytes [#/volume] 0.1 K/uL 0.0-0.03 H in Blood (test code = 55556-3) lymphocyte% (test code = 8.2 % 10.0-50.0 L lymphocyte%) mono % (test code = mono %) 5.7 % 3.6-12.0 eos % (test code = eos %) 0.4 % 0.0-5.4 Basophils/100 leukocytes in 0.5 % 0.1-1.2 Unspecified specimen (test code = 84455-3) Band form neutrophils [#/volume] 9.04 K/uL 1.56-6.13 H in Blood (test code = 56214-5) Lymphocytes [#/volume] in 0.9 K/uL 1.18-3.74 L Unspecified specimen by Automated count (test code = 38394-6) mono # (test code = mono #) 0.61 K/uL 0.24-0.86 eos # (test code = eos #) 0.04 K/uL 0.04-0.36 basophil # (test code = basophil 0.05 K/uL 0.01-0.08 #) NRBC% (test code = NRBC%) 0 /100 WBC 0-0.2 NRBC# (test code = NRBC#) 0 K/uL [facility]Differential [facility], method unspecified - [id number] 05:20:00NeutrophilsBandLymphocyteAtypical LymphMonocyteEosinophilPlatelet EstimatePlatelet MorphologyMaNorth Mississippi Medical CenterPT/[id number] 05:20:00 Test Item Value Reference Range Interpretation Comments prothrombin time (test code = 11.0 seconds 10.3-12.3 prothrombin time) INR in Blood by Coagulation 1.02 assay (test code = 35792-0) [facility] [id number] 05:20:00 Test Item Value Reference Range Interpretation Comments INR in Blood by Coagulation 35.0 seconds 22.5-37.0 assay (test code = 88568-1) [facility]Com[facility] 2000 [facility] - Serum or Plasma 2020-01-25 05:20:00 Test Item Value Reference Range Interpretation Comments glucose (test code = glucose) 116 mg/dL 82-115 H Urea nitrogen [Mass/volume] in 39 mg/dL 8-23 H Serum or Plasma (test code = 3094-0) osmolality calculated,serum (test 282 mOsm/kg 280-300 code = osmolality calculated,serum) creatinine (test code = 1.3 mg/dL 0.50-0.90 H creatinine) glomerular filtration rate (test 39.41 L code = glomerular filtration rate) Urea nitrogen/Creatinine [Mass 30.0 12-20 H Ratio] in Serum or Plasma (test code = 3097-3) sodium level (test code = sodium 136 mmol/L 135-145 level) Potassium [Moles/volume] in Body 3.5 mmol/L 3.5-5.2 fluid (test code = 2821-7) chloride level (test code = 99 mmol/L 98-108 chloride level) CO2 (test code = CO2) 19 mmol/L 21-32 L anion gap (test code = anion gap) 21.5 mEq/L 12-20 H calcium level (test code = 9.3 mg/dL 8.8-10.2 calcium level) total protein (test code = total 7.2 g/dL 6.6-8.7 protein) albumin (test code = albumin) 3.8 g/dL 3.5-5.2 globulin (test code = globulin) 3.4 gm/dL A/G ratio (test code = A/G ratio) 1.1 >1.0 bilirubin,total (test code = 0.5 mg/dL 0.0-1.2 bilirubin,total) AST/SGOT (test code = AST/SGOT) 55 U/L 15-32 H Alanine aminotransferase 42 U/L 0-33 H [Enzymatic activity/volume] in Serum or Plasma (test code = 1742-6) Alkaline phosphatase [Enzymatic 81 U/L 35-105 activity/volume] in Serum or Plasma (test code = 6768-6) [facility] HospitalMagnesium [Moles/volume] in Unspecified specimen 2020-01-25 05:20:00 Test Item Value Reference Range Interpretation Comments magnesium level (test code = 1.7 mg/dL 1.6-2.4 magnesium level) [facility] HospitalNatriuretic peptide.B prohormone N-Terminal [Mass/volume] in Serum or [id number] 05:20:00 Test Item Value Reference Range Interpretation Comments N-term pro natriuretic peptide 1304 pg/mL 0-450 H (test code = N-term pro natriuretic peptide) [facility] HospitalTroponin I.cardiac [Mass/volume] in [id number] 05:20:00 Test Item Value Reference Range Interpretation Comments cardiac troponin I (test code = cardiac <0.30 0.0-0.5 troponin I) [facility]cal[facility] 05:20:00 Test Item Value Reference Range Interpretation Comments Procalcitonin [Mass/volume] in 0.9 NG/mL 0.0-0.8 H Serum or Plasma (test code = 08927-6) [facility]CB [facility] Auto Differential panel - [id number] 05:20:00 Test Item Value Reference Range Interpretation Comments white blood count (test code = 10.7 K/uL 4.0-11.5 white blood count) red blood count (test code = red 3.15 M/uL 3.80-5.20 L blood count) hemoglobin (test code = 11.0 g/dL 10.5-15.7 hemoglobin) hematocrit (test code = 32.9 % 34.0-50.0 L hematocrit) MCV [Entitic volume] (test code = 104.4 fL 86-100 H 72723-5) mean corpuscular hemoglobin (test 34.9 pg 26.2-33.4 H code = mean corpuscular hemoglobin) mean corpuscular HGB conc (test 33.4 g/dL 30-34 code = mean corpuscular HGB conc) red cell distribution width (test 12.8 % 12.0-15.5 code = red cell distribution width) platelet count (test code = 256 K/uL 165-450 platelet count) mean platelet volume (test code = 9.0 fL 9.4-12.6 L mean platelet volume) Segmented neutrophils/100 84.5 % 44.4-80.1 H leukocytes in Blood (test code = 67665-5) Immature granulocytes [#/volume] 0.1 K/uL 0.0-0.03 H in Blood (test code = 48621-6) lymphocyte% (test code = 8.2 % 10.0-50.0 L lymphocyte%) mono % (test code = mono %) 5.7 % 3.6-12.0 eos % (test code = eos %) 0.4 % 0.0-5.4 Basophils/100 leukocytes in 0.5 % 0.1-1.2 Unspecified specimen (test code = 69170-7) Band form neutrophils [#/volume] 9.04 K/uL 1.56-6.13 H in Blood (test code = 39274-0) Lymphocytes [#/volume] in 0.9 K/uL 1.18-3.74 L Unspecified specimen by Automated count (test code = 85295-2) mono # (test code = mono #) 0.61 K/uL 0.24-0.86 eos # (test code = eos #) 0.04 K/uL 0.04-0.36 basophil # (test code = basophil 0.05 K/uL 0.01-0.08 #) NRBC% (test code = NRBC%) 0 /100 WBC 0-0.2 NRBC# (test code = NRBC#) 0 K/uL [facility]Differential panel, method unspecified - [id number] 05:20:00NeutrophilsBandLymphocyteAtypical LymphMonocyteEosinophilPlatelet EstimatePlatelet MorphologyMaNorth Mississippi Medical CenterPT/[id number] 05:20:00 Test Item Value Reference Range Interpretation Comments prothrombin time (test code = 11.0 seconds 10.3-12.3 prothrombin time) INR in Blood by Coagulation 1.02 assay (test code = 27687-1) [facility]partial thromb[facility]in [id number] 05:20:00 Test Item Value Reference Range Interpretation Comments INR in Blood by Coagulation 35.0 seconds 22.5-37.0 assay (test code = 33388-5) [facility]Com[facility] 2000 [facility] - Serum or Plasma 2020-01-25 05:20:00 Test Item Value Reference Range Interpretation Comments glucose (test code = glucose) 116 mg/dL 82-115 H Urea nitrogen [Mass/volume] in 39 mg/dL 8-23 H Serum or Plasma (test code = 3094-0) osmolality calculated,serum (test 282 mOsm/kg 280-300 code = osmolality calculated,serum) creatinine (test code = 1.3 mg/dL 0.50-0.90 H creatinine) glomerular filtration rate (test 39.41 L code = glomerular filtration rate) Urea nitrogen/Creatinine [Mass 30.0 12-20 H Ratio] in Serum or Plasma (test code = 3097-3) sodium level (test code = sodium 136 mmol/L 135-145 level) Potassium [Moles/volume] in Body 3.5 mmol/L 3.5-5.2 fluid (test code = 2821-7) chloride level (test code = 99 mmol/L 98-108 chloride level) CO2 (test code = CO2) 19 mmol/L 21-32 L anion gap (test code = anion gap) 21.5 mEq/L 12-20 H calcium level (test code = 9.3 mg/dL 8.8-10.2 calcium level) total protein (test code = total 7.2 g/dL 6.6-8.7 protein) albumin (test code = albumin) 3.8 g/dL 3.5-5.2 globulin (test code = globulin) 3.4 gm/dL A/G ratio (test code = A/G ratio) 1.1 >1.0 bilirubin,total (test code = 0.5 mg/dL 0.0-1.2 bilirubin,total) AST/SGOT (test code = AST/SGOT) 55 U/L 15-32 H Alanine aminotransferase 42 U/L 0-33 H [Enzymatic activity/volume] in Serum or Plasma (test code = 1742-6) Alkaline phosphatase [Enzymatic 81 U/L 35-105 activity/volume] in Serum or Plasma (test code = 6768-6) [facility] HospitalMagnesium [Moles/volume] in Unspecified specimen 2020-01-25 05:20:00 Test Item Value Reference Range Interpretation Comments magnesium level (test code = 1.7 mg/dL 1.6-2.4 magnesium level) [facility] HospitalNatriuretic peptide.B prohormone N-Terminal [Mass/volume] in Serum or [id number] 05:20:00 Test Item Value Reference Range Interpretation Comments N-term pro natriuretic peptide 1304 pg/mL 0-450 H (test code = N-term pro natriuretic peptide) [facility] HospitalTroponin I.cardiac [Mass/volume] in [id number] 05:20:00 Test Item Value Reference Range Interpretation Comments cardiac troponin I (test code = cardiac <0.30 0.0-0.5 troponin I) [facility]procal[facility] 05:20:00 Test Item Value Reference Range Interpretation Comments Procalcitonin [Mass/volume] in 0.9 NG/mL 0.0-0.8 H Serum or Plasma (test code = 43629-5) [facility]CB [facility] Auto Differential panel - [id number] 05:20:00 Test Item Value Reference Range Interpretation Comments white blood count (test code = 10.7 K/uL 4.0-11.5 white blood count) red blood count (test code = red 3.15 M/uL 3.80-5.20 L blood count) hemoglobin (test code = 11.0 g/dL 10.5-15.7 hemoglobin) hematocrit (test code = 32.9 % 34.0-50.0 L hematocrit) MCV [Entitic volume] (test code = 104.4 fL 86-100 H 25938-6) mean corpuscular hemoglobin (test 34.9 pg 26.2-33.4 H code = mean corpuscular hemoglobin) mean corpuscular HGB conc (test 33.4 g/dL 30-34 code = mean corpuscular HGB conc) red cell distribution width (test 12.8 % 12.0-15.5 code = red cell distribution width) platelet count (test code = 256 K/uL 165-450 platelet count) mean platelet volume (test code = 9.0 fL 9.4-12.6 L mean platelet volume) Segmented neutrophils/100 84.5 % 44.4-80.1 H leukocytes in Blood (test code = 88798-4) Immature granulocytes [#/volume] 0.1 K/uL 0.0-0.03 H in Blood (test code = 16029-0) lymphocyte% (test code = 8.2 % 10.0-50.0 L lymphocyte%) mono % (test code = mono %) 5.7 % 3.6-12.0 eos % (test code = eos %) 0.4 % 0.0-5.4 Basophils/100 leukocytes in 0.5 % 0.1-1.2 Unspecified specimen (test code = 12071-0) Band form neutrophils [#/volume] 9.04 K/uL 1.56-6.13 H in Blood (test code = 22992-8) Lymphocytes [#/volume] in 0.9 K/uL 1.18-3.74 L Unspecified specimen by Automated count (test code = 97689-3) mono # (test code = mono #) 0.61 K/uL 0.24-0.86 eos # (test code = eos #) 0.04 K/uL 0.04-0.36 basophil # (test code = basophil 0.05 K/uL 0.01-0.08 #) NRBC% (test code = NRBC%) 0 /100 WBC 0-0.2 NRBC# (test code = NRBC#) 0 K/uL [facility]Differential panel, method unspecified - [id number] 05:20:00NeutrophilsBandLymphocyteAtypical LymphMonocyteEosinophilPlatelet EstimatePlatelet MorphologyMaNorth Mississippi Medical CenterPT/[id number] 05:20:00 Test Item Value Reference Range Interpretation Comments prothrombin time (test code = 11.0 seconds 10.3-12.3 prothrombin time) INR in Blood by Coagulation 1.02 assay (test code = 08730-2) [facility]partial [facility]in [id number] 05:20:00 Test Item Value Reference Range Interpretation Comments INR in Blood by Coagulation 35.0 seconds 22.5-37.0 assay (test code = 81089-9) [facility]Com[facility] 2000 [facility] - Serum or Plasma 2020-01-25 05:20:00 Test Item Value Reference Range Interpretation Comments glucose (test code = glucose) 116 mg/dL 82-115 H Urea nitrogen [Mass/volume] in 39 mg/dL 8-23 H Serum or Plasma (test code = 3094-0) osmolality calculated,serum (test 282 mOsm/kg 280-300 code = osmolality calculated,serum) creatinine (test code = 1.3 mg/dL 0.50-0.90 H creatinine) glomerular filtration rate (test 39.41 L code = glomerular filtration rate) Urea nitrogen/Creatinine [Mass 30.0 12-20 H Ratio] in Serum or Plasma (test code = 3097-3) sodium level (test code = sodium 136 mmol/L 135-145 level) Potassium [Moles/volume] in Body 3.5 mmol/L 3.5-5.2 fluid (test code = 2821-7) chloride level (test code = 99 mmol/L 98-108 chloride level) CO2 (test code = CO2) 19 mmol/L 21-32 L anion gap (test code = anion gap) 21.5 mEq/L 12-20 H calcium level (test code = 9.3 mg/dL 8.8-10.2 calcium level) total protein (test code = total 7.2 g/dL 6.6-8.7 protein) albumin (test code = albumin) 3.8 g/dL 3.5-5.2 globulin (test code = globulin) 3.4 gm/dL A/G ratio (test code = A/G ratio) 1.1 >1.0 bilirubin,total (test code = 0.5 mg/dL 0.0-1.2 bilirubin,total) AST/SGOT (test code = AST/SGOT) 55 U/L 15-32 H Alanine aminotransferase 42 U/L 0-33 H [Enzymatic activity/volume] in Serum or Plasma (test code = 1742-6) Alkaline phosphatase [Enzymatic 81 U/L 35-105 activity/volume] in Serum or Plasma (test code = 6768-6) [facility] HospitalMagnesium [Moles/volume] in Unspecified specimen 2020-01-25 05:20:00 Test Item Value Reference Range Interpretation Comments magnesium level (test code = 1.7 mg/dL 1.6-2.4 magnesium level) [facility] HospitalNatriuretic peptide.B prohormone N-Terminal [Mass/volume] in Serum or [id number] 05:20:00 Test Item Value Reference Range Interpretation Comments N-term pro natriuretic peptide 1304 pg/mL 0-450 H (test code = N-term pro natriuretic peptide) [facility] HospitalTroponin I.cardiac [Mass/volume] in [id number] 05:20:00 Test Item Value Reference Range Interpretation Comments cardiac troponin I (test code = cardiac <0.30 0.0-0.5 troponin I) [facility]allprocal[facility] 05:20:00 Test Item Value Reference Range Interpretation Comments Procalcitonin [Mass/volume] in 0.9 NG/mL 0.0-0.8 H Serum or Plasma (test code = 22251-7) [facility]CB [facility] Auto Differential panel - [id number] 05:20:00 Test Item Value Reference Range Interpretation Comments white blood count (test code = 10.7 K/uL 4.0-11.5 white blood count) red blood count (test code = red 3.15 M/uL 3.80-5.20 L blood count) hemoglobin (test code = 11.0 g/dL 10.5-15.7 hemoglobin) hematocrit (test code = 32.9 % 34.0-50.0 L hematocrit) MCV [Entitic volume] (test code = 104.4 fL 86-100 H 93982-9) mean corpuscular hemoglobin (test 34.9 pg 26.2-33.4 H code = mean corpuscular hemoglobin) mean corpuscular HGB conc (test 33.4 g/dL 30-34 code = mean corpuscular HGB conc) red cell distribution width (test 12.8 % 12.0-15.5 code = red cell distribution width) platelet count (test code = 256 K/uL 165-450 platelet count) mean platelet volume (test code = 9.0 fL 9.4-12.6 L mean platelet volume) Segmented neutrophils/100 84.5 % 44.4-80.1 H leukocytes in Blood (test code = 82386-4) Immature granulocytes [#/volume] 0.1 K/uL 0.0-0.03 H in Blood (test code = 09972-3) lymphocyte% (test code = 8.2 % 10.0-50.0 L lymphocyte%) mono % (test code = mono %) 5.7 % 3.6-12.0 eos % (test code = eos %) 0.4 % 0.0-5.4 Basophils/100 leukocytes in 0.5 % 0.1-1.2 Unspecified specimen (test code = 35016-5) Band form neutrophils [#/volume] 9.04 K/uL 1.56-6.13 H in Blood (test code = 34840-7) Lymphocytes [#/volume] in 0.9 K/uL 1.18-3.74 L Unspecified specimen by Automated count (test code = 82608-7) mono # (test code = mono #) 0.61 K/uL 0.24-0.86 eos # (test code = eos #) 0.04 K/uL 0.04-0.36 basophil # (test code = basophil 0.05 K/uL 0.01-0.08 #) NRBC% (test code = NRBC%) 0 /100 WBC 0-0.2 NRBC# (test code = NRBC#) 0 K/uL [facility]Differential panel, method unspecified - [id number] 05:20:00NeutrophilsBandLymphocyteAtypical LymphMonocyteEosinophilPlatelet EstimatePlatelet MorphologyMaNorth Mississippi Medical CenterPT/[id number] 05:20:00 Test Item Value Reference Range Interpretation Comments prothrombin time (test code = 11.0 seconds 10.3-12.3 prothrombin time) INR in Blood by Coagulation 1.02 assay (test code = 89185-6) [facility]partial thromboplastin [id number] 05:20:00 Test Item Value Reference Range Interpretation Comments INR in Blood by Coagulation 35.0 seconds 22.5-37.0 assay (test code = 51634-8) [facility]Com[facility] 2000 [facility] - Serum or Plasma 2020-01-25 05:20:00 Test Item Value Reference Range Interpretation Comments glucose (test code = glucose) 116 mg/dL 82-115 H Urea nitrogen [Mass/volume] in 39 mg/dL 8-23 H Serum or Plasma (test code = 3094-0) osmolality calculated,serum (test 282 mOsm/kg 280-300 code = osmolality calculated,serum) creatinine (test code = 1.3 mg/dL 0.50-0.90 H creatinine) glomerular filtration rate (test 39.41 L code = glomerular filtration rate) Urea nitrogen/Creatinine [Mass 30.0 12-20 H Ratio] in Serum or Plasma (test code = 3097-3) sodium level (test code = sodium 136 mmol/L 135-145 level) Potassium [Moles/volume] in Body 3.5 mmol/L 3.5-5.2 fluid (test code = 2821-7) chloride level (test code = 99 mmol/L 98-108 chloride level) CO2 (test code = CO2) 19 mmol/L 21-32 L anion gap (test code = anion gap) 21.5 mEq/L 12-20 H calcium level (test code = 9.3 mg/dL 8.8-10.2 calcium level) total protein (test code = total 7.2 g/dL 6.6-8.7 protein) albumin (test code = albumin) 3.8 g/dL 3.5-5.2 globulin (test code = globulin) 3.4 gm/dL A/G ratio (test code = A/G ratio) 1.1 >1.0 bilirubin,total (test code = 0.5 mg/dL 0.0-1.2 bilirubin,total) AST/SGOT (test code = AST/SGOT) 55 U/L 15-32 H Alanine aminotransferase 42 U/L 0-33 H [Enzymatic activity/volume] in Serum or Plasma (test code = 1742-6) Alkaline phosphatase [Enzymatic 81 U/L 35-105 activity/volume] in Serum or Plasma (test code = 6768-6) [facility] in Unspecified specimen 2020-01-25 05:20:00 Test Item Value Reference Range Interpretation Comments magnesium level (test code = 1.7 mg/dL 1.6-2.4 magnesium level) [facility] peptide.B prohormone N-Terminal [Mass/volume] in Serum or [id number] 05:20:00 Test Item Value Reference Range Interpretation Comments N-term pro natriuretic peptide 1304 pg/mL 0-450 H (test code = N-term pro natriuretic peptide) [facility].cardiac [Mass/volume] in [id number] 05:20:00 Test Item Value Reference Range Interpretation Comments cardiac troponin I (test code = cardiac <0.30 0.0-0.5 troponin I) [facility] 05:20:00 Test Item Value Reference Range Interpretation Comments Procalcitonin [Mass/volume] in 0.9 NG/mL 0.0-0.8 H Serum or Plasma (test code = 80170-2) [facility] Arterial [id number] 05:00:00 Test Item Value Reference Range Interpretation Comments pH of Arterial blood (test code = 7.45 7.35-7.45 2744-1) Carbon dioxide [Partial pressure] 30 mmHg 35-45 L in Arterial blood (test code = 2019-8) Oxygen [Partial pressure] in 132 mmHg 75-100 H Arterial blood (test code = 2703-7) Bicarbonate [Moles/volume] in 22.4 mmol/L 22-26 Arterial blood (test code = 1959-4) Base excess in Arterial blood by -3.3 mmol/l -2.0-2.0 L calculation (test code = 5-7) ABG CO2,total (test code = ABG 18.8 mEq/L 23.0-33.0 L CO2,total) Oxygen saturation in Arterial 100 % 95-100 blood (test code = 2708-6) Oxygen content in Arterial blood 7.1 mmol/L (test code = 86848-0) [facility] panel - Arterial [id number] 05:00:00 Test Item Value Reference Range Interpretation Comments pH of Arterial blood (test code = 7.45 7.35-7.45 2744-1) Carbon dioxide [Partial pressure] 30 mmHg 35-45 L in Arterial blood (test code = 2019-06) Oxygen [Partial pressure] in 132 mmHg 75-100 H Arterial blood (test code = 3-7) Bicarbonate [Moles/volume] in 22.4 mmol/L 22-26 Arterial blood (test code = 1959-4) Base excess in Arterial blood by -3.3 mmol/l -2.0-2.0 L calculation (test code = 1924-7) ABG CO2,total (test code = ABG 18.8 mEq/L 23.0-33.0 L CO2,total) Oxygen saturation in Arterial 100 % 95-100 blood (test code = 2708-6) Oxygen content in Arterial blood 7.1 mmol/L (test code = 63101-4) [facility] panel - Arterial [id number] 05:00:00 Test Item Value Reference Range Interpretation Comments pH of Arterial blood (test code = 7.45 7.35-7.45 2744-1) Carbon dioxide [Partial pressure] 30 mmHg 35-45 L in Arterial blood (test code = 2019-06) Oxygen [Partial pressure] in 132 mmHg 75-100 H Arterial blood (test code = 3-7) Bicarbonate [Moles/volume] in 22.4 mmol/L 22-26 Arterial blood (test code = 1959-4) Base excess in Arterial blood by -3.3 mmol/l -2.0-2.0 L calculation (test code = 1924-7) ABG CO2,total (test code = ABG 18.8 mEq/L 23.0-33.0 L CO2,total) Oxygen saturation in Arterial 100 % 95-100 blood (test code = 2708-6) Oxygen content in Arterial blood 7.1 mmol/L (test code = 12303-0) [facility] [id number] 05:00:00 Test Item Value Reference Range Interpretation Comments pH of Arterial blood (test code = 7.45 7.35-7.45 2744-1) Carbon dioxide [Partial pressure] 30 mmHg 35-45 L in Arterial blood (test code = 2019-8) Oxygen [Partial pressure] in 132 mmHg 75-100 H Arterial blood (test code = 2703-7) Bicarbonate [Moles/volume] in 22.4 mmol/L 22-26 Arterial blood (test code = 1960-4) Base excess in Arterial blood by -3.3 mmol/l -2.0-2.0 L calculation (test code = 1925-7) ABG CO2,total (test code = ABG 18.8 mEq/L 23.0-33.0 L CO2,total) Oxygen saturation in Arterial 100 % 95-100 blood (test code = 2708-6) Oxygen content in Arterial blood 7.1 mmol/L (test code = 52301-5) [facility] [id number] 03:51:00 Test Item Value Reference Range Interpretation Comments Adenovirus Ab [Presence] in not detected not detect Unspecified specimen (test code = 99724-7) Coronavirus Ab [Units/volume] in detected not detect A Serum (test code = 5099-7) Human metapneumovirus RNA not detected not detect [Presence] in Unspecified specimen by [place] with probe detection (test code = 10647-7) Rhinovirus+Enterovirus RNA not detected not detect [Presence] in Unspecified specimen by [place] with probe detection (test code = 46478-5) Influenza virus A Ag [Presence] not detected not detect in Unspecified specimen (test code = 28188-2) Influenza virus A H1 2009 not detected not detect pandemic RNA [Presence] in Unspecified specimen by [place] with probe detection (test code = 35297-6) Influenza virus A H3 RNA not detected not detect [Presence] in Isolate by [place] with probe detection (test code = 79648-1) Influenza virus B Ag [Presence] not detected not detect in Unspecified specimen (test code = 88492-2) Parainfluenza virus 1 Ab [Titer] not detected not detect in Serum by Complement fixation (test code = 5268-8) Parainfluenza virus 2 Ab [Titer] not detected not detect in Serum by Complement fixation (test code = 5269-6) Parainfluenza virus 3 RNA not detected not detect [Presence] in Isolate by [place] with probe detection (test code = 69359-2) Parainfluenza virus 4 RNA not detected not detect [Presence] in Unspecified specimen by [place] with probe detection (test code = 19333-9) resp syn virus A (test code = not detected not detect resp syn virus A) resp syn virus B (test code = not detected not detect resp syn virus B) Chlamydophila pneumoniae DNA not detected not detect [Presence] in Unspecified specimen by [place] with probe detection (test code = 83678-8) Mycoplasma pneumoniae IgG and not detected not detect IgM panel - Serum (test code = 13638-0) [facility] HospitalXisurqvuplekyr0170-01-87 03:51:00 Test Item Value Reference Range Interpretation Comments Adenovirus Ab [Presence] in not detected not detect Unspecified specimen (test code = 38497-8) Coronavirus Ab [Units/volume] in detected not detect A Serum (test code = 5099-7) Human metapneumovirus RNA not detected not detect [Presence] in Unspecified specimen by [place] with probe detection (test code = 87305-8) Rhinovirus+Enterovirus RNA not detected not detect [Presence] in Unspecified specimen by [place] with probe detection (test code = 40656-6) Influenza virus A Ag [Presence] not detected not detect in Unspecified specimen (test code = 81634-5) Influenza virus A H1 2009 not detected not detect pandemic RNA [Presence] in Unspecified specimen by [place] with probe detection (test code = 23997-9) Influenza virus A H3 RNA not detected not detect [Presence] in Isolate by [place] with probe detection (test code = 81520-9) Influenza virus B Ag [Presence] not detected not detect in Unspecified specimen (test code = 67113-1) Parainfluenza virus 1 Ab [Titer] not detected not detect in Serum by Complement fixation (test code = 5268-8) Parainfluenza virus 2 Ab [Titer] not detected not detect in Serum by Complement fixation (test code = 5269-6) Parainfluenza virus 3 RNA not detected not detect [Presence] in Isolate by [place] with probe detection (test code = 42048-4) Parainfluenza virus 4 RNA not detected not detect [Presence] in Unspecified specimen by [place] with probe detection (test code = 64492-0) resp syn virus A (test code = not detected not detect resp syn virus A) resp syn virus B (test code = not detected not detect resp syn virus B) Chlamydophila pneumoniae DNA not detected not detect [Presence] in Unspecified specimen by [place] with probe detection (test code = 68200-8) Mycoplasma pneumoniae IgG and not detected not detect IgM panel - Serum (test code = 96388-3) [id number] 03:51:00 Test Item Value Reference Range Interpretation Comments Adenovirus Ab [Presence] in not detected not detect Unspecified specimen (test code = 40941-3) Coronavirus Ab [Units/volume] in detected not detect A Serum (test code = 5099-7) Human metapneumovirus RNA not detected not detect [Presence] in Unspecified specimen by [place] with probe detection (test code = 11552-0) Rhinovirus+Enterovirus RNA not detected not detect [Presence] in Unspecified specimen by [place] with probe detection (test code = 02159-6) Influenza virus A Ag [Presence] not detected not detect in Unspecified specimen (test code = 68456-3) Influenza virus A H1 2009 not detected not detect pandemic RNA [Presence] in Unspecified specimen by [place] with probe detection (test code = 28773-9) Influenza virus A H3 RNA not detected not detect [Presence] in Isolate by [place] with probe detection (test code = 94097-6) Influenza virus B Ag [Presence] not detected not detect in Unspecified specimen (test code = 35166-3) Parainfluenza virus 1 Ab [Titer] not detected not detect in Serum by Complement fixation (test code = 5268-8) Parainfluenza virus 2 Ab [Titer] not detected not detect in Serum by Complement fixation (test code = 5269-6) Parainfluenza virus 3 RNA not detected not detect [Presence] in Isolate by [place] with probe detection (test code = 59758-8) Parainfluenza virus 4 RNA not detected not detect [Presence] in Unspecified specimen by [place] with probe detection (test code = 82408-4) resp syn virus A (test code = not detected not detect resp syn virus A) resp syn virus B (test code = not detected not detect resp syn virus B) Chlamydophila pneumoniae DNA not detected not detect [Presence] in Unspecified specimen by [place] with probe detection (test code = 23716-8) Mycoplasma pneumoniae IgG and not detected not detect IgM panel - Serum (test code = 55535-9) [facility] Test Item Value Reference Range Interpretation Comments Adenovirus Ab [Presence] in not detected not detect Unspecified specimen (test code = 12525-3) Coronavirus Ab [Units/volume] in detected not detect A Serum (test code = 5099-7) Human metapneumovirus RNA not detected not detect [Presence] in Unspecified specimen by [place] with probe detection (test code = 72767-8) Rhinovirus+Enterovirus RNA not detected not detect [Presence] in Unspecified specimen by [place] with probe detection (test code = 34132-5) Influenza virus A Ag [Presence] not detected not detect in Unspecified specimen (test code = 19306-8) Influenza virus A H1 2009 not detected not detect pandemic RNA [Presence] in Unspecified specimen by [place] with probe detection (test code = 50674-6) Influenza virus A H3 RNA not detected not detect [Presence] in Isolate by [place] with probe detection (test code = 74014-5) Influenza virus B Ag [Presence] not detected not detect in Unspecified specimen (test code = 83514-8) Parainfluenza virus 1 Ab [Titer] not detected not detect in Serum by Complement fixation (test code = 5268-8) Parainfluenza virus 2 Ab [Titer] not detected not detect in Serum by Complement fixation (test code = 5269-6) Parainfluenza virus 3 RNA not detected not detect [Presence] in Isolate by [place] with probe detection (test code = 21596-8) Parainfluenza virus 4 RNA not detected not detect [Presence] in Unspecified specimen by [place] with probe detection (test code = 42990-9) resp syn virus A (test code = not detected not detect resp syn virus A) resp syn virus B (test code = not detected not detect resp syn virus B) Chlamydophila pneumoniae DNA not detected not detect [Presence] in Unspecified specimen by [place] with probe detection (test code = 02253-1) Mycoplasma pneumoniae IgG and not detected not detect IgM panel - Serum (test code = 91134-8) [facility] 03:[facility]00 Test Item Value Reference Range Interpretation Comments Adenovirus Ab [Presence] in not detected not detect Unspecified specimen (test code = 10363-0) Coronavirus Ab [Units/volume] in detected not detect A Serum (test code = 5099-7) Human metapneumovirus RNA not detected not detect [Presence] in Unspecified specimen by [place] with probe detection (test code = 77164-2) Rhinovirus+Enterovirus RNA not detected not detect [Presence] in Unspecified specimen by [place] with probe detection (test code = 47418-7) Influenza virus A Ag [Presence] not detected not detect in Unspecified specimen (test code = 53394-5) Influenza virus A H1 2009 not detected not detect pandemic RNA [Presence] in Unspecified specimen by [place] with probe detection (test code = 69656-5) Influenza virus A H3 RNA not detected not detect [Presence] in Isolate by [place] with probe detection (test code = 42020-2) Influenza virus B Ag [Presence] not detected not detect in Unspecified specimen (test code = 19888-1) Parainfluenza virus 1 Ab [Titer] not detected not detect in Serum by Complement fixation (test code = 5268-8) Parainfluenza virus 2 Ab [Titer] not detected not detect in Serum by Complement fixation (test code = 5269-6) Parainfluenza virus 3 RNA not detected not detect [Presence] in Isolate by [place] with probe detection (test code = 27812-6) Parainfluenza virus 4 RNA not detected not detect [Presence] in Unspecified specimen by [place] with probe detection (test code = 27030-2) resp syn virus A (test code = not detected not detect resp syn virus A) resp syn virus B (test code = not detected not detect resp syn virus B) Chlamydophila pneumoniae DNA not detected not detect [Presence] in Unspecified specimen by [place] with probe detection (test code = 83173-7) Mycoplasma pneumoniae IgG and not detected not detect IgM panel - Serum (test code = 63412-9) [facility]Xwyozshcwosgqf6053-15-74 03:51:00 Test Item Value Reference Range Interpretation Comments Adenovirus Ab [Presence] in not detected not detect Unspecified specimen (test code = 34577-9) Coronavirus Ab [Units/volume] in detected not detect A Serum (test code = 5099-7) Human metapneumovirus RNA not detected not detect [Presence] in Unspecified specimen by [place] with probe detection (test code = 58605-9) Rhinovirus+Enterovirus RNA not detected not detect [Presence] in Unspecified specimen by [place] with probe detection (test code = 67448-3) Influenza virus A Ag [Presence] not detected not detect in Unspecified specimen (test code = 00797-8) Influenza virus A H1 2009 not detected not detect pandemic RNA [Presence] in Unspecified specimen by [place] with probe detection (test code = 21772-8) Influenza virus A H3 RNA not detected not detect [Presence] in Isolate by [place] with probe detection (test code = 31091-0) Influenza virus B Ag [Presence] not detected not detect in Unspecified specimen (test code = 17351-5) Parainfluenza virus 1 Ab [Titer] not detected not detect in Serum by Complement fixation (test code = 5268-8) Parainfluenza virus 2 Ab [Titer] not detected not detect in Serum by Complement fixation (test code = 5269-6) Parainfluenza virus 3 RNA not detected not detect [Presence] in Isolate by [place] with probe detection (test code = 94621-9) Parainfluenza virus 4 RNA not detected not detect [Presence] in Unspecified specimen by [place] with probe detection (test code = 13689-5) resp syn virus A (test code = not detected not detect resp syn virus A) resp syn virus B (test code = not detected not detect resp syn virus B) Chlamydophila pneumoniae DNA not detected not detect [Presence] in Unspecified specimen by [place] with probe detection (test code = 31998-1) Mycoplasma pneumoniae IgG and not detected not detect IgM panel - Serum (test code = 06653-7) [facility]Fbeatmrdjyfjbd9272-76-46 03:51:00 Test Item Value Reference Range Interpretation Comments Adenovirus Ab [Presence] in not detected not detect Unspecified specimen (test code = 34876-5) Coronavirus Ab [Units/volume] in detected not detect A Serum (test code = 5099-7) Human metapneumovirus RNA not detected not detect [Presence] in Unspecified specimen by [place] with probe detection (test code = 66983-6) Rhinovirus+Enterovirus RNA not detected not detect [Presence] in Unspecified specimen by [place] with probe detection (test code = 83379-7) Influenza virus A Ag [Presence] not detected not detect in Unspecified specimen (test code = 66004-2) Influenza virus A H1 2009 not detected not detect pandemic RNA [Presence] in Unspecified specimen by [place] with probe detection (test code = 88454-4) Influenza virus A H3 RNA not detected not detect [Presence] in Isolate by [place] with probe detection (test code = 14496-8) Influenza virus B Ag [Presence] not detected not detect in Unspecified specimen (test code = 23229-2) Parainfluenza virus 1 Ab [Titer] not detected not detect in Serum by Complement fixation (test code = 5268-8) Parainfluenza virus 2 Ab [Titer] not detected not detect in Serum by Complement fixation (test code = 5269-6) Parainfluenza virus 3 RNA not detected not detect [Presence] in Isolate by [place] with probe detection (test code = 69456-4) Parainfluenza virus 4 RNA not detected not detect [Presence] in Unspecified specimen by [place] with probe detection (test code = 18360-6) resp syn virus A (test code = not detected not detect resp syn virus A) resp syn virus B (test code = not detected not detect resp syn virus B) Chlamydophila pneumoniae DNA not detected not detect [Presence] in Unspecified specimen by [place] with probe detection (test code = 69662-3) Mycoplasma pneumoniae IgG and not detected not detect IgM panel - Serum (test code = 25399-1) [facility]Qzrqkxuxvvngnv2266-80-93 03:51:00 Test Item Value Reference Range Interpretation Comments Adenovirus Ab [Presence] in not detected not detect Unspecified specimen (test code = 34744-5) Coronavirus Ab [Units/volume] in detected not detect A Serum (test code = 5099-7) Human metapneumovirus RNA not detected not detect [Presence] in Unspecified specimen by [place] with probe detection (test code = 60855-0) Rhinovirus+Enterovirus RNA not detected not detect [Presence] in Unspecified specimen by [place] with probe detection (test code = 99262-7) Influenza virus A Ag [Presence] not detected not detect in Unspecified specimen (test code = 65232-0) Influenza virus A H1 2009 not detected not detect pandemic RNA [Presence] in Unspecified specimen by [place] with probe detection (test code = 03909-9) Influenza virus A H3 RNA not detected not detect [Presence] in Isolate by [place] with probe detection (test code = 54908-1) Influenza virus B Ag [Presence] not detected not detect in Unspecified specimen (test code = 96762-7) Parainfluenza virus 1 Ab [Titer] not detected not detect in Serum by Complement fixation (test code = 5268-8) Parainfluenza virus 2 Ab [Titer] not detected not detect in Serum by Complement fixation (test code = 5269-6) Parainfluenza virus 3 RNA not detected not detect [Presence] in Isolate by [place] with probe detection (test code = 83880-0) Parainfluenza virus 4 RNA not detected not detect [Presence] in Unspecified specimen by [place] with probe detection (test code = 97936-4) resp syn virus A (test code = not detected not detect resp syn virus A) resp syn virus B (test code = not detected not detect resp syn virus B) Chlamydophila pneumoniae DNA not detected not detect [Presence] in Unspecified specimen by [place] with probe detection (test code = 59236-1) Mycoplasma pneumoniae IgG and not detected not detect IgM panel - Serum (test code = 30657-3) [facility] W Auto Differential panel - [id number] 09:12:00 Test Item Value Reference Range Interpretation Comments white blood count (test code = 6.3 K/uL 4.0-11.5 white blood count) red blood count (test code = red 3.25 M/uL 3.80-5.20 L blood count) hemoglobin (test code = 11.1 g/dL 10.5-15.7 hemoglobin) hematocrit (test code = 35.2 % 34.0-50.0 hematocrit) Erythrocyte mean corpuscular 108.3 fL 86-100 H volume [Entitic volume] (test code = 30054-6) mean corpuscular hemoglobin (test 34.2 pg 26.2-33.4 H code = mean corpuscular hemoglobin) mean corpuscular HGB conc (test 31.5 g/dL 30-34 code = mean corpuscular HGB conc) red cell distribution width (test 12.9 % 12.0-15.5 code = red cell distribution width) platelet count (test code = 257 K/uL 165-450 platelet count) mean platelet volume (test code = 9.2 fL 9.4-12.6 L mean platelet volume) Neutrophils.segmented/100 51.8 % 44.4-80.1 leukocytes in Blood (test code = 42199-5) Granulocytes Immature [#/volume] 0.0 K/uL 0.0-0.03 in Blood (test code = 13137-5) lymphocyte% (test code = 33.1 % 10.0-50.0 lymphocyte%) mono % (test code = mono %) 11.1 % 3.6-12.0 eos % (test code = eos %) 2.7 % 0.0-5.4 Basophils/100 leukocytes in 1.0 % 0.1-1.2 Unspecified specimen (test code = 91868-9) Neutrophils.band form [#/volume] 3.25 K/uL 1.56-6.13 in Blood (test code = 02504-3) Lymphocytes [#/volume] in 2.1 K/uL 1.18-3.74 Unspecified specimen by Automated count (test code = 30679-9) mono # (test code = mono #) 0.70 K/uL 0.24-0.86 eos # (test code = eos #) 0.17 K/uL 0.04-0.36 basophil # (test code = basophil 0.06 K/uL 0.01-0.08 #) NRBC% (test code = NRBC%) 0 /100 WBC 0-0.2 NRBC# (test code = NRBC#) 0 K/uL [facility] [id number] 09:12:00 NeutrophilsBandLymphocyteAtypical LymphMonocyteEosinophilBasophilMetamyelocyteMyelocytePlatelet EstimatePlatelet MorphologyRouleauDifferential comment-[facility] W Auto Differential panel - [id number] 09:12:00 Test Item Value Reference Range Interpretation Comments white blood count (test code = 6.3 K/uL 4.0-11.5 white blood count) red blood count (test code = red 3.25 M/uL 3.80-5.20 L blood count) hemoglobin (test code = 11.1 g/dL 10.5-15.7 hemoglobin) hematocrit (test code = 35.2 % 34.0-50.0 hematocrit) MCV [Entitic volume] (test code = 108.3 fL 86-100 H 49219-1) mean corpuscular hemoglobin (test 34.2 pg 26.2-33.4 H code = mean corpuscular hemoglobin) mean corpuscular HGB conc (test 31.5 g/dL 30-34 code = mean corpuscular HGB conc) red cell distribution width (test 12.9 % 12.0-15.5 code = red cell distribution width) platelet count (test code = 257 K/uL 165-450 platelet count) mean platelet volume (test code = 9.2 fL 9.4-12.6 L mean platelet volume) Segmented neutrophils/100 51.8 % 44.4-80.1 leukocytes in Blood (test code = 65937-3) Immature granulocytes [#/volume] 0.0 K/uL 0.0-0.03 in Blood (test code = 12297-6) lymphocyte% (test code = 33.1 % 10.0-50.0 lymphocyte%) mono % (test code = mono %) 11.1 % 3.6-12.0 eos % (test code = eos %) 2.7 % 0.0-5.4 Basophils/100 leukocytes in 1.0 % 0.1-1.2 Unspecified specimen (test code = 24036-5) Band form neutrophils [#/volume] 3.25 K/uL 1.56-6.13 in Blood (test code = 49703-3) Lymphocytes [#/volume] in 2.1 K/uL 1.18-3.74 Unspecified specimen by Automated count (test code = 26607-6) mono # (test code = mono #) 0.70 K/uL 0.24-0.86 eos # (test code = eos #) 0.17 K/uL 0.04-0.36 basophil # (test code = basophil 0.06 K/uL 0.01-0.08 #) NRBC% (test code = NRBC%) 0 /100 WBC 0-0.2 NRBC# (test code = NRBC#) 0 K/uL [facility]Different[facility], method unspecified - [id number] 09:12:00NeutrophilsBandLymphocyteAtypical LymphMonocyteEosinophilBasophilMetamyelocyteMyelocytePlatelet EstimatePlatelet MorphologyRouleauDifferential comment-[facility]Bacteria identified in Urine by [id number] 03:01:00 Test Item Value Reference Range Interpretation Comments Bacteria identified in no growth after 2 Urine by Culture (test days. code = 630-4) [facility] identified in Urine by [id number] 03:01:00 Test Item Value Reference Range Interpretation Comments Bacteria identified in no growth after 2 Urine by Culture (test days. code = 630-4) [facility] HospitalUrinalysis complete W Reflex Culture panel - Urine 2019-12-30 11:45:00 Test Item Value Reference Range Interpretation Comments Color of Urine by Auto (test yellow code = 72172-1) Appearance of Urine (test code clear clear = 5767-9) Glucose [Mass/volume] in Urine negative negative (test code = 2350-7) bilirubin, urine (test code = negative negative bilirubin, urine) ketone, urine (test code = negative negative ketone, urine) Specific gravity of Urine by 1.010 1.003-1.030 Automated test strip (test code = 34639-4) Hemoglobin [Presence] in Urine negative negative by Test strip (test code = 5794-3) pH of Urine (test code = 6.000 5-9 2756-5) protein urine (UA) (test code = negative negative protein urine (UA)) Urobilinogen [Presence] in 0.2 E.U./dL 0.2-1.0 Urine (test code = 71859-1) Nitrite [Presence] in Urine by negative negative Test strip (test code = 5802-4) urine leukocyte esterase (test negative negative code = urine leukocyte esterase) Erythrocytes [Presence] in none seen 0-5 Urine (test code = 90765-7) WBC, urine (test code = WBC, =0-5 0-5 urine) Epithelial cells [Presence] in =0-5 0-5 Urine sediment by Light microscopy (test code = 45622-2) bacteria, urine (test code = none detected none detect bacteria, urine) Casts [#/area] in Urine none seen none detect sediment by Automated count (test code = 55899-9) urine culture added? (test code no = urine culture added?) [facility] Group[facility] Culture [facility] - Urine 2019-12-30 11:45:00 Test Item Value Reference Range Interpretation Comments Color of Urine by Auto (test yellow code = 64523-8) Appearance of Urine (test code clear clear = 5767-9) Glucose [Mass/volume] in Urine negative negative (test code = 2350-7) bilirubin, urine (test code = negative negative bilirubin, urine) ketone, urine (test code = negative negative ketone, urine) Specific gravity of Urine by 1.010 1.003-1.030 Automated test strip (test code = 46174-0) Hemoglobin [Presence] in Urine negative negative by Test strip (test code = 5794-3) pH of Urine (test code = 6.000 5-9 2756-5) protein urine (UA) (test code = negative negative protein urine (UA)) Urobilinogen [Presence] in 0.2 E.U./dL 0.2-1.0 Urine (test code = 14398-5) Nitrite [Presence] in Urine by negative negative Test strip (test code = 5802-4) urine leukocyte esterase (test negative negative code = urine leukocyte esterase) Erythrocytes [Presence] in none seen 0-5 Urine (test code = 06906-0) WBC, urine (test code = WBC, =0-5 0-5 urine) Epithelial cells [Presence] in =0-5 0-5 Urine sediment by Light microscopy (test code = 94307-4) bacteria, urine (test code = none detected none detect bacteria, urine) Casts [#/area] in Urine none seen none detect sediment by Automated count (test code = 43074-4) urine culture added? (test code no = urine culture added?) [facility] identified in Urine by [id number] 03:40:00Bacteria Ur CultMatamanchester [facility] hospitala Medical GroupBacteria identified in Wound by [id number] 01:45:00ResultsMatarda Medical Groupantibiotic sensitivity testing, [id number] 01:45:00 Test Item Value Reference Range Interpretation Comments Gentamicin [Susceptibility] by <4 Minimum inhibitory concentration (YUNG) (test code = 267-5) Ampicillin [Susceptibility] by >8 Minimum inhibitory concentration (YUNG) (test code = 28-1) Cefazolin [Susceptibility] by <8 Minimum inhibitory concentration (YUNG) (test code = 76-0) Oxacillin [Susceptibility] by >2 Minimum inhibitory concentration (YUNG) (test code = 383-0) Penicillin [Susceptibility] by >8 Minimum inhibitory concentration (YUNG) (test code = 6932-8) Trimethoprim+Sulfamethoxazole =0.5 [Susceptibility] by Minimum inhibitory concentration (YUNG) (test code = 516-5) Tetracycline [Susceptibility] by <4 Minimum inhibitory concentration (YUNG) (test code = 496-0) Amoxicillin+Clavulanate =4/2 [Susceptibility] by Minimum inhibitory concentration (YUNG) (test code = 20-8) Clindamycin [Susceptibility] by <0.5 Minimum inhibitory concentration (YUNG) (test code = 193-3) Nitrofurantoin [Susceptibility] by <32 Minimum inhibitory concentration (YUNG) (test code = 363-2) Erythromycin [Susceptibility] by >4 Minimum inhibitory concentration (YUNG) (test code = 233-7) Vancomycin [Susceptibility] by 1 ug/mL Minimum inhibitory concentration (YUNG) (test code = 524-9) Levofloxacin [Susceptibility] by >4 Minimum inhibitory concentration (YUNG) (test code = 66315-3) Ceftriaxone [Susceptibility] by 32 ug/mL Minimum inhibitory concentration (YUNG) (test code = 141-2) Imipenem [Susceptibility] by Minimum <4 inhibitory concentration (YUNG) (test code = 279-0) Ampicillin+Sulbactam =16/8 [Susceptibility] by Minimum inhibitory concentration (YUNG) (test code = 32-3) Linezolid [Susceptibility] by 2 ug/mL Minimum inhibitory concentration (YUNG) (test code = 30410-0) Meropenem [Susceptibility] by <4 Minimum inhibitory concentration (YUNG) (test code = 6652-2) Daptomycin [Susceptibility] by <0.5 Minimum inhibitory concentration (YUNG) (test code = 02343-4) Rifampin [Susceptibility] by Minimum <1 inhibitory concentration (YUNG) (test code = 428-3) [facility] - [id number] 05:17:00 Test Item Value Reference Range Interpretation Comments Color of Urine by Auto (test light yellow code = 89092-2) Appearance of Urine (test SL cloudy clear A code = 5767-9) Glucose [Presence] in Urine negative negative by Automated test strip (test code = 07194-6) Bilirubin.total [Mass/volume] negative negative in Urine (test code = 1978-6) Ketones [Mass/volume] in negative negative Urine by Automated test strip (test code = 01440-6) Specific gravity of Urine by 1.015 1.003-1.030 Automated test strip (test code = 13319-7) blood urine (test code = trace negative blood urine) pH of Urine (test code = 5.500 5-9 2756-5) protein urine (UA) (test code trace negative = protein urine (UA)) Urobilinogen [Presence] in normal 0.2-1.0 Urine (test code = 09638-3) Nitrite [Presence] in Urine negative negative by Test strip (test code = 5802-4) Leukocyte esterase [Presence] =4 negative H in Urine by Automated test strip (test code = 77269-1) Erythrocytes [#/volume] in =1-5 0-5 Urine by Automated count (test code = 798-9) Leukocytes [#/area] in Urine >50 0-5 H sediment by Automated count (test code = 12094-6) Epithelial cells [Presence] <1 0-5 in Urine sediment by Light microscopy (test code = 47216-7) Bacteria identified in Urine tntc (4 none detect H by Culture (test code = 630-4) Casts [#/area] in Urine =6-10 none detect H sediment by Automated count (test code = 70143-5) urine culture added? (test already ordered code = urine culture added?) [facility] W Auto Differential panel - [id number] 04:19:00 Test Item Value Reference Range Interpretation Comments white blood count (test code = 8.8 K/uL 4.0-11.5 white blood count) red blood count (test code = red 3.78 M/uL 3.80-5.20 L blood count) hemoglobin (test code = 13.0 g/dL 10.5-15.7 hemoglobin) hematocrit (test code = 39.7 % 34.0-50.0 hematocrit) Erythrocyte mean corpuscular 105.0 fL 86-100 H volume [Entitic volume] (test code = 44060-4) mean corpuscular hemoglobin (test 34.4 pg 26.2-33.4 H code = mean corpuscular hemoglobin) mean corpuscular HGB conc (test 32.7 g/dL 30-34 code = mean corpuscular HGB conc) red cell distribution width (test 12.8 % 12.0-15.5 code = red cell distribution width) platelet count (test code = 307 K/uL 165-450 platelet count) mean platelet volume (test code = 8.9 fL 9.4-12.6 L mean platelet volume) Neutrophils.segmented/100 66.5 % 44.4-80.1 leukocytes in Blood (test code = 75664-1) Granulocytes Immature [#/volume] 0.0 K/uL 0.0-0.03 in Blood (test code = 55470-6) lymphocyte% (test code = 22.3 % 10.0-50.0 lymphocyte%) mono % (test code = mono %) 9.1 % 3.6-12.0 eos % (test code = eos %) 1.1 % 0.0-5.4 Basophils/100 leukocytes in 0.8 % 0.1-1.2 Unspecified specimen (test code = 81579-3) Neutrophils.band form [#/volume] 5.85 K/uL 1.56-6.13 in Blood (test code = 63966-9) Lymphocytes [#/volume] in 2.0 K/uL 1.18-3.74 Unspecified specimen by Automated count (test code = 12250-3) mono # (test code = mono #) 0.80 K/uL 0.24-0.86 eos # (test code = eos #) 0.10 K/uL 0.04-0.36 basophil # (test code = basophil 0.07 K/uL 0.01-0.08 #) NRBC% (test code = NRBC%) 0 /100 WBC 0-0.2 NRBC# (test code = NRBC#) 0 K/uL [facility], [id number] 04:19:00 NeutrophilsLymphocyteMonocyteEosinophilBasophilPlatelet EstimateDifferential comment-PMaNorth Mississippi Medical CenterLactate [Mass/volume] in Serum or Plasma 2019-12-10 04:19:00 Test Item Value Reference Range Interpretation Comments lactic acid (test code = lactic 1.73 mmol/L 0.5-2.2 acid) [facility]Com[facility] 2000 [facility] - Serum or Plasma 2019-12-10 04:19:00 Test Item Value Reference Range Interpretation Comments Glucose [Mass/volume] in Serum or 136 mg/dL 82-115 H Plasma (test code = 2345-7) Urea nitrogen [Mass/volume] in 31 mg/dL 8-23 H Serum or Plasma (test code = 3094-0) osmolality calculated,serum (test 284 mOsm/kg 280-300 code = osmolality calculated,serum) creatinine (test code = 1.1 mg/dL 0.50-0.90 H creatinine) glomerular filtration rate (test 47.79 L code = glomerular filtration rate) Urea nitrogen/Creatinine [Mass 28.2 12-20 H Ratio] in Serum or Plasma (test code = 3097-3) sodium level (test code = sodium 138 mmol/L 135-145 level) potassium level (test code = 3.7 mmol/L 3.5-5.2 potassium level) chloride level (test code = 96 mmol/L 98-108 L chloride level) CO2 (test code = CO2) 25 mmol/L 21-32 anion gap (test code = anion gap) 20.7 mEq/L 12-20 H calcium level (test code = 10.4 mg/dL 8.8-10.2 H calcium level) total protein (test code = total 8.3 g/dL 6.6-8.7 protein) albumin (test code = albumin) 4.6 g/dL 3.5-5.2 globulin (test code = globulin) 3.7 gm/dL A/G ratio (test code = A/G ratio) 1.2 >1.0 bilirubin,total (test code = 0.4 mg/dL 0.0-1.2 bilirubin,total) AST/SGOT (test code = AST/SGOT) 31 U/L 15-32 Alanine aminotransferase 22 U/L 0-33 [Enzymatic activity/volume] in Serum or Plasma (test code = 1742-6) Alkaline phosphatase [Enzymatic 76 U/L 35-105 activity/volume] in Serum or Plasma (test code = 6768-6) [facility] GroupMagnesium [Moles/volume] in Unspecified specimen 2019-12-10 04:19:00 Test Item Value Reference Range Interpretation Comments magnesium level (test code = 1.8 mg/dL 1.6-2.4 magnesium level) [facility] GroupDigoxin [Mass/volume] in Serum or [id number] 04:19:00 Test Item Value Reference Range Interpretation Comments digoxin level (test code = digoxin <0.30 0.8-2.0 L level) [facility] HospitalCreatine kinase [Enzymatic activity/volume] in Serum or [id number] 04:19:00 Test Item Value Reference Range Interpretation Comments creatine kinase (test code = creatine 104 U/L 20-180 kinase) [facility] HospitalNatriuretic peptide.B prohormone N-Terminal [Mass/volume] in Serum or [id number] 04:19:00 Test Item Value Reference Range Interpretation Comments N-term pro natriuretic peptide 1627 pg/mL 0-450 H (test code = N-term pro natriuretic peptide) [facility] HospitalTroponin I.cardiac [Mass/volume] in [id number] 04:19:00 Test Item Value Reference Range Interpretation Comments cardiac troponin I (test code = cardiac <0.30 0.0-0.5 troponin I) [facility] HospitalCreat[facility] kinase.MB [Mass/volume] in Serum or Plasma 2019-12-10 04:19:00 Test Item Value Reference Range Interpretation Comments mass creatinine kinase-mb (test 2.7 NG/mL 0.0-3.6 code = mass creatinine kinase-mb) [facility] Culture panel - Urine 2019-12-08 11:33:00 Test Item Value Reference Range Interpretation Comments Color of Urine by Auto (test code lt. yellow = 40540-9) Appearance of Urine (test code = clear clear 5767-9) Glucose [Mass/volume] in Urine negative negative (test code = 2350-7) bilirubin, urine (test code = negative negative bilirubin, urine) ketone, urine (test code = negative negative ketone, urine) Specific gravity of Urine by 1.015 1.003-1.030 Automated test strip (test code = 27112-5) Hemoglobin [Presence] in Urine by negative negative Test strip (test code = 5794-3) pH of Urine (test code = 2756-5) 5.500 5-9 protein urine (UA) (test code = negative negative protein urine (UA)) Urobilinogen [Presence] in Urine 0.2 E.U./dL 0.2-1.0 (test code = 89353-2) Nitrite [Presence] in Urine by negative negative Test strip (test code = 5802-4) urine leukocyte esterase (test =1 negative H code = urine leukocyte esterase) Erythrocytes [Presence] in Urine =0-3 0-5 (test code = 43561-7) WBC, urine (test code = WBC, =15-19 0-5 H urine) Epithelial cells [Presence] in =0-5 0-5 Urine sediment by Light microscopy (test code = 85938-5) bacteria, urine (test code = moderate (2 none detect H bacteria, urine) urine culture added? (test code = yes urine culture added?) [facility]Bacteria identified in Urine by [id number] 11:33:00Bacteria Ur CultSouth Sunflower County Hospitalantibiotic sensitivity testing, [id number] 11:33:00 Test Item Value Reference Range Interpretation Comments Gentamicin [Susceptibility] by Minimum <2 inhibitory concentration (YUNG) (test code = 267-5) Ampicillin [Susceptibility] by Minimum <8 inhibitory concentration (YUNG) (test code = 28-1) Cefazolin [Susceptibility] by Minimum <2 inhibitory concentration (YUNG) (test code = 76-0) Trimethoprim+Sulfamethoxazole =2/38 [Susceptibility] by Minimum inhibitory concentration (YUNG) (test code = 516-5) Tetracycline [Susceptibility] by <4 Minimum inhibitory concentration (YUNG) (test code = 496-0) Amoxicillin+Clavulanate =8/4 [Susceptibility] by Minimum inhibitory concentration (YUNG) (test code = 20-8) Tobramycin [Susceptibility] by Minimum <4 inhibitory concentration (YUNG) (test code = 508-2) Nitrofurantoin [Susceptibility] by <32 Minimum inhibitory concentration (YUNG) (test code = 363-2) Cefotaxime [Susceptibility] by Minimum <2 inhibitory concentration (YUNG) (test code = 108-1) Cefepime [Susceptibility] by Minimum <8 inhibitory concentration (YUNG) (test code = 6644-9) Levofloxacin [Susceptibility] by <2 Minimum inhibitory concentration (YUNG) (test code = 02436-8) Piperacillin+Tazobactam <16 [Susceptibility] by Minimum inhibitory concentration (YUNG) (test code = 412-7) Ceftazidime [Susceptibility] by Minimum <1 inhibitory concentration (YUNG) (test code = 133-9) Ceftriaxone [Susceptibility] by Minimum <1 inhibitory concentration (YUNG) (test code = 141-2) Ciprofloxacin [Susceptibility] by <1 Minimum inhibitory concentration (YUNG) (test code = 185-9) Imipenem [Susceptibility] by Minimum <1 inhibitory concentration (YUNG) (test code = 279-0) Ampicillin+Sulbactam [Susceptibility] =8/4 by Minimum inhibitory concentration (YUNG) (test code = 32-3) Ertapenem [Susceptibility] by Minimum <0.5 inhibitory concentration (YUNG) (test code = 82306-5) Aztreonam [Susceptibility] by Minimum <4 inhibitory concentration (YUNG) (test code = 44-8) Cefuroxime [Susceptibility] by Minimum <4 inhibitory concentration (YUNG) (test code = 62896-0) [facility] GroupUrinalysis complete W Reflex Culture panel - Urine 2019-10-14 10:23:00 Test Item Value Reference Range Interpretation Comments Color of Urine by Auto (test lt. yellow code = 02427-8) Appearance of Urine (test code clear clear = 5767-9) Glucose [Mass/volume] in Urine negative negative (test code = 2350-7) bilirubin, urine (test code = negative negative bilirubin, urine) ketone, urine (test code = negative negative ketone, urine) Specific gravity of Urine by 1.010 1.003-1.030 Automated test strip (test code = 11858-1) Hemoglobin [Presence] in Urine negative negative by Test strip (test code = 5794-3) pH of Urine (test code = 5.000 5-9 2756-5) protein urine (UA) (test code = negative negative protein urine (UA)) Urobilinogen [Presence] in 0.2 E.U./dL 0.2-1.0 Urine (test code = 45596-7) Nitrite [Presence] in Urine by negative negative Test strip (test code = 5802-4) urine leukocyte esterase (test negative negative code = urine leukocyte esterase) Erythrocytes [Presence] in none seen 0-5 Urine (test code = 70026-1) WBC, urine (test code = WBC, =0-2 0-5 urine) Epithelial cells [Presence] in =0-5 0-5 Urine sediment by Light microscopy (test code = 43863-1) bacteria, urine (test code = none detected none detect bacteria, urine) urine culture added? (test code no = urine culture added?) [facility] GroupUrinalysis complete W Reflex Culture panel - Urine 2019-09-16 00:00:00 Test Item Value Reference Range Interpretation Comments Color of Urine by Auto (test yellow code = 76873-9) Appearance of Urine (test code clear clear = 5767-9) Glucose [Mass/volume] in Urine negative negative (test code = 2350-7) bilirubin, urine (test code = negative negative bilirubin, urine) ketone, urine (test code = negative negative ketone, urine) Specific gravity of Urine by 1.010 1.003-1.030 Automated test strip (test code = 76511-8) Hemoglobin [Presence] in Urine negative negative by Test strip (test code = 5794-3) pH of Urine (test code = 5.000 5-9 2756-5) protein urine (UA) (test code = negative negative protein urine (UA)) Urobilinogen [Presence] in 0.2 E.U./dL 0.2-1.0 Urine (test code = 34227-6) Nitrite [Presence] in Urine by negative negative Test strip (test code = 5802-4) urine leukocyte esterase (test trace negative H code = urine leukocyte esterase) Erythrocytes [Presence] in <1 0-5 Urine (test code = 58917-1) WBC, urine (test code = WBC, =0-2 0-5 urine) Epithelial cells [Presence] in =6-10 0-5 Urine sediment by Light microscopy (test code = 68286-3) bacteria, urine (test code = none detected none detect bacteria, urine) Casts [#/area] in Urine hyaline >20 none detect sediment by Automated count (test code = 70238-6) urine culture added? (test code no = urine culture added?) squamous epithelial cell urine =6-10 0-5 (test code = squamous epithelial cell urine) [facility] GroupBacteria identified in Urine by [id number] 00:00:00 Test Item Value Reference Range Interpretation Comments Bacteria identified in no growth after 2 Urine by Culture (test days code = 630-4) [facility] GroupBacteria identified in Urine by [id number] 12:06:00 Test Item Value Reference Range Interpretation Comments Bacteria identified in no growth at 48 hrs. Urine by Culture (test code = 630-4) [facility] GroupUrinalysis complete W Reflex Culture panel - Urine 2019-09-05 11:45:00 Test Item Value Reference Range Interpretation Comments Color of Urine by Auto (test light yellow code = 79882-1) Appearance of Urine (test clear clear code = 5767-9) Glucose [Presence] in Urine negative negative by Automated test strip (test code = 58095-9) Bilirubin.total [Mass/volume] negative negative in Urine (test code = 1978-6) Ketones [Mass/volume] in negative negative Urine by Automated test strip (test code = 73137-9) Specific gravity of Urine by 1.013 1.003-1.030 Automated test strip (test code = 21956-0) blood urine (test code = negative negative blood urine) pH of Urine (test code = 5.000 5-9 2756-5) protein urine (UA) (test code negative negative = protein urine (UA)) Urobilinogen [Presence] in normal 0.2-1.0 Urine (test code = 01754-6) Nitrite [Presence] in Urine negative negative by Test strip (test code = 5802-4) Leukocyte esterase [Presence] negative negative in Urine by Automated test strip (test code = 13088-5) Erythrocytes [#/volume] in <1 0-5 Urine by Automated count (test code = 798-9) Leukocytes [#/area] in Urine <1 0-5 sediment by Automated count (test code = 69122-4) Epithelial cells [Presence] <1 0-5 in Urine sediment by Light microscopy (test code = 51770-2) Bacteria identified in Urine none detected none detect by Culture (test code = 630-4) Casts [#/area] in Urine =2-5 none detect sediment by Automated count (test code = 58139-2) urine culture added? (test already ordered code = urine culture added?) [facility] GroupUrinalysis complete W Reflex Culture panel - Urine 2019-08-07 10:15:00 Test Item Value Reference Range Interpretation Comments Color of Urine by Auto (test light yellow code = 56477-8) Appearance of Urine (test code clear clear = 5767-9) Glucose [Presence] in Urine by negative negative Automated test strip (test code = 71318-8) Bilirubin.total [Mass/volume] negative negative in Urine (test code = 1978-6) Ketones [Mass/volume] in Urine negative negative by Automated test strip (test code = 12978-0) Specific gravity of Urine by 1.007 1.003-1.030 Automated test strip (test code = 72656-0) blood urine (test code = blood negative negative urine) pH of Urine (test code = 5.000 5-9 2756-5) protein urine (UA) (test code = negative negative protein urine (UA)) Urobilinogen [Presence] in normal 0.2-1.0 Urine (test code = 59496-5) Nitrite [Presence] in Urine by negative negative Test strip (test code = 5802-4) Leukocyte esterase [Presence] negative negative in Urine by Automated test strip (test code = 89476-8) Erythrocytes [#/volume] in <1 0-5 Urine by Automated count (test code = 798-9) Leukocytes [#/area] in Urine =1-5 0-5 sediment by Automated count (test code = 24899-1) Epithelial cells [Presence] in =1-5 0-5 Urine sediment by Light microscopy (test code = 94949-3) Bacteria identified in Urine by none detected none detect Culture (test code = 630-4) Casts [#/area] in Urine none detected none detect sediment by Automated count (test code = 26629-6) urine culture added? (test code no = urine culture added?) [facility] W Auto Differential panel - [id number] 02:45:00 Test Item Value Reference Range Interpretation Comments white blood count (test code = 6.9 K/uL 4.0-11.5 white blood count) red blood count (test code = red 3.16 M/uL 3.80-5.20 L blood count) hemoglobin (test code = 10.8 g/dL 10.5-15.7 hemoglobin) hematocrit (test code = 33.1 % 34.0-50.0 L hematocrit) Erythrocyte mean corpuscular 104.7 fL 86-100 H volume [Entitic volume] (test code = 17849-4) mean corpuscular hemoglobin (test 34.2 pg 26.2-33.4 H code = mean corpuscular hemoglobin) mean corpuscular HGB conc (test 32.6 g/dL 30-34 code = mean corpuscular HGB conc) red cell distribution width (test 14.4 % 12.0-15.5 code = red cell distribution width) platelet count (test code = 329 K/uL 165-450 platelet count) mean platelet volume (test code = 9.0 fL 9.4-12.6 L mean platelet volume) Neutrophils.segmented/100 51.6 % 44.4-80.1 leukocytes in Blood (test code = 07392-1) Granulocytes Immature [#/volume] 0.0 K/uL 0.0-0.03 in Blood (test code = 51873-7) lymphocyte% (test code = 35.4 % 10.0-50.0 lymphocyte%) mono % (test code = mono %) 9.8 % 3.6-12.0 eos % (test code = eos %) 2.2 % 0.0-5.4 Basophils/100 leukocytes in 0.6 % 0.1-1.2 Unspecified specimen (test code = 82559-9) Neutrophils.band form [#/volume] 3.58 K/uL 1.56-6.13 in Blood (test code = 44042-0) Lymphocytes [#/volume] in 2.5 K/uL 1.18-3.74 Unspecified specimen by Automated count (test code = 74146-8) mono # (test code = mono #) 0.68 K/uL 0.24-0.86 eos # (test code = eos #) 0.15 K/uL 0.04-0.36 basophil # (test code = basophil 0.04 K/uL 0.01-0.08 #) NRBC% (test code = NRBC%) 0 /100 WBC 0-0.2 NRBC# (test code = NRBC#) 0 K/uL [facility], [id number] 02:45:00 NeutrophilsBandLymphocyteAtypical LymphMonocyteEosinophilBasophilMetamyelocyteMyelocytePlatelet EstimatePlatelet MorphologyHypochromasiaPoikilocytosisAnisocytosisMicrocytosisOvalocytesToxic VacuolationMataAnderson Regional Medical CenterBasic metabolic 2000 panel - Serum or Plasma 2019-07-28 02:45:00 Test Item Value Reference Range Interpretation Comments Glucose [Mass/volume] in Serum or 91 mg/dL 82-115 Plasma (test code = 2345-7) Urea nitrogen [Mass/volume] in 20 mg/dL 8-23 Serum or Plasma (test code = 3094-0) osmolality calculated, serum (test 287 280-300 code = osmolality calculated, serum) creatinine (test code = 0.9 mg/dL 0.50-0.90 creatinine) glomerular filtration rate (test >60.00 code = glomerular filtration rate) Urea nitrogen/Creatinine [Mass 22.2 12-20 H Ratio] in Serum or Plasma (test code = 3097-3) sodium level (test code = sodium 143 mmol/L 135-145 level) potassium level (test code = 4.1 mmol/L 3.5-5.2 potassium level) chloride level (test code = 109 mmol/L 98-108 H chloride level) CO2 (test code = CO2) 25 mmol/L 21-32 anion gap (test code = anion gap) 13.1 mEq/L 12-20 calcium level (test code = calcium 9.6 mg/dL 8.8-10.2 level) [facility]Dig[facility] [Mass/volume] in Serum or [id number] 02:45:00 Test Item Value Reference Range Interpretation Comments digoxin level (test code = digoxin 0.94 NG/mL 0.8-2.0 level) [facility] Hospitalmcdiff [id number] 05:24:00ResultsMaNorth Mississippi Medical CenterCBC W Auto Differential panel - [id number] 03:58:00 Test Item Value Reference Range Interpretation Comments white blood count (test code = 8.5 K/uL 4.0-11.5 white blood count) red blood count (test code = red 3.05 M/uL 3.80-5.20 L blood count) hemoglobin (test code = 10.5 g/dL 10.5-15.7 hemoglobin) hematocrit (test code = 32.1 % 34.0-50.0 L hematocrit) Erythrocyte mean corpuscular 105.2 fL 86-100 H volume [Entitic volume] (test code = 33990-5) mean corpuscular hemoglobin (test 34.4 pg 26.2-33.4 H code = mean corpuscular hemoglobin) mean corpuscular HGB conc (test 32.7 g/dL 30-34 code = mean corpuscular HGB conc) red cell distribution width (test 14.5 % 12.0-15.5 code = red cell distribution width) platelet count (test code = 267 K/uL 165-450 platelet count) mean platelet volume (test code = 9.2 fL 9.4-12.6 L mean platelet volume) Neutrophils.segmented/100 55.9 % 44.4-80.1 leukocytes in Blood (test code = 79014-7) Granulocytes Immature [#/volume] 0.1 K/uL 0.0-0.03 H in Blood (test code = 31905-5) lymphocyte% (test code = 29.1 % 10.0-50.0 lymphocyte%) mono % (test code = mono %) 11.9 % 3.6-12.0 eos % (test code = eos %) 2.0 % 0.0-5.4 Basophils/100 leukocytes in 0.5 % 0.1-1.2 Unspecified specimen (test code = 62731-5) Neutrophils.band form [#/volume] 4.76 K/uL 1.56-6.13 in Blood (test code = 90406-9) Lymphocytes [#/volume] in 2.5 K/uL 1.18-3.74 Unspecified specimen by Automated count (test code = 07517-2) mono # (test code = mono #) 1.01 K/uL 0.24-0.86 H eos # (test code = eos #) 0.17 K/uL 0.04-0.36 basophil # (test code = basophil 0.04 K/uL 0.01-0.08 #) NRBC% (test code = NRBC%) 0 /100 WBC 0-0.2 NRBC# (test code = NRBC#) 0 K/uL [facility] metabolic 2000 panel - Serum or [id number] 03:58:00 Test Item Value Reference Range Interpretation Comments Glucose [Mass/volume] in Serum or 90 mg/dL 82-115 Plasma (test code = 2345-7) Urea nitrogen [Mass/volume] in 26 mg/dL 8-23 Serum or Plasma (test code = 3094-0) osmolality calculated, serum (test 284 280-300 code = osmolality calculated, serum) creatinine (test code = 0.8 mg/dL 0.50-0.90 creatinine) glomerular filtration rate (test >60.00 code = glomerular filtration rate) Urea nitrogen/Creatinine [Mass 32.5 12-20 H Ratio] in Serum or Plasma (test code = 3097-3) sodium level (test code = sodium 140 mmol/L 135-145 level) potassium level (test code = 4.1 mmol/L 3.5-5.2 potassium level) chloride level (test code = 112 mmol/L 98-108 H chloride level) CO2 (test code = CO2) 19 mmol/L 21-32 L anion gap (test code = anion gap) 13.1 mEq/L 12-20 calcium level (test code = calcium 9.0 mg/dL 8.8-10.2 level) [facility] HospitalLactate [Mass/volume] in Serum or [id number] 03:58:00 Test Item Value Reference Range Interpretation Comments lactic acid (test code = lactic 1.24 mmol/L 0.5-2.2 acid) [facility]allprocal[facility] 03:58:00 Test Item Value Reference Range Interpretation Comments Procalcitonin [Mass/volume] in 3.3 NG/mL 0.0-0.8 H Serum or Plasma (test code = 23120-8) [facility] HospitalDigoxin [Mass/volume] in Serum or [id number] 03:58:00 Test Item Value Reference Range Interpretation Comments digoxin level (test code = digoxin 1.49 NG/mL 0.8-2.0 level) [facility] HospitalLeukocytes [Presence] in Stool by Light microscopy 2019-07-27 01:29:00ResultsSouth Sunflower County HospitalClostridium difficile toxin A+B [Presence] in [id number] 01:29:00ResMerit Health MadisonDigoxin [Mass/volume] in Serum or [id number] 07:02:00 Test Item Value Reference Range Interpretation Comments digoxin level (test code = digoxin 2.32 NG/mL 0.8-2.0 level) [facility] HospitalCB W Auto Differential panel - [id number] 02:15:00 Test Item Value Reference Range Interpretation Comments white blood count (test code = 8.1 K/uL 4.0-11.5 white blood count) red blood count (test code = red 3.35 M/uL 3.80-5.20 L blood count) hemoglobin (test code = 11.4 g/dL 10.5-15.7 hemoglobin) hematocrit (test code = 35.3 % 34.0-50.0 hematocrit) Erythrocyte mean corpuscular 105.4 fL 86-100 H volume [Entitic volume] (test code = 64208-6) mean corpuscular hemoglobin (test 34.0 pg 26.2-33.4 H code = mean corpuscular hemoglobin) mean corpuscular HGB conc (test 32.3 g/dL 30-34 code = mean corpuscular HGB conc) red cell distribution width (test 14.3 % 12.0-15.5 code = red cell distribution width) platelet count (test code = 241 K/uL 165-450 platelet count) mean platelet volume (test code = 9.2 fL 9.4-12.6 L mean platelet volume) Neutrophils.segmented/100 57.2 % 44.4-80.1 leukocytes in Blood (test code = 67120-9) Granulocytes Immature [#/volume] 0.0 K/uL 0.0-0.03 in Blood (test code = 88400-2) lymphocyte% (test code = 26.0 % 10.0-50.0 lymphocyte%) mono % (test code = mono %) 13.7 % 3.6-12.0 H eos % (test code = eos %) 2.2 % 0.0-5.4 Basophils/100 leukocytes in 0.5 % 0.1-1.2 Unspecified specimen (test code = 73400-0) Neutrophils.band form [#/volume] 4.64 K/uL 1.56-6.13 in Blood (test code = 09514-9) Lymphocytes [#/volume] in 2.1 K/uL 1.18-3.74 Unspecified specimen by Automated count (test code = 81951-1) mono # (test code = mono #) 1.11 K/uL 0.24-0.86 H eos # (test code = eos #) 0.18 K/uL 0.04-0.36 basophil # (test code = basophil 0.04 K/uL 0.01-0.08 #) NRBC% (test code = NRBC%) 0 /100 WBC 0-0.2 NRBC# (test code = NRBC#) 0 K/uL [facility] HospitalLactate [Mass/volume] in Serum or [id number] 02:15:00 Test Item Value Reference Range Interpretation Comments lactic acid (test code = lactic 0.97 mmol/L 0.5-2.2 acid) [facility]Com[facility] 2000 [facility] - Serum or Plasma 2019-07-26 02:15:00 Test Item Value Reference Range Interpretation Comments Glucose [Mass/volume] in Serum or 92 mg/dL 82-115 Plasma (test code = 2345-7) Urea nitrogen [Mass/volume] in 52 mg/dL 8-23 H Serum or Plasma (test code = 3094-0) osmolality calculated, serum (test 293 280-300 code = osmolality calculated, serum) creatinine (test code = 1.1 mg/dL 0.50-0.90 H creatinine) glomerular filtration rate (test 47.91 L code = glomerular filtration rate) Urea nitrogen/Creatinine [Mass 47.3 12-20 H Ratio] in Serum or Plasma (test code = 3097-3) sodium level (test code = sodium 140 mmol/L 135-145 level) potassium level (test code = 3.9 mmol/L 3.5-5.2 potassium level) chloride level (test code = 111 mmol/L 98-108 H chloride level) CO2 (test code = CO2) 19 mmol/L 21-32 L anion gap (test code = anion gap) 13.9 mEq/L 12-20 calcium level (test code = calcium 9.0 mg/dL 8.8-10.2 level) total protein (test code = total 6.9 g/dL 6.6-8.7 protein) albumin (test code = albumin) 3.3 g/dL 3.5-5.2 L globulin (test code = globulin) 3.6 gm/dL A/G ratio (test code = A/G ratio) 0.9 >1.0 bilirubin,total (test code = 0.3 mg/dL 0.0-1.2 bilirubin,total) AST/SGOT (test code = AST/SGOT) 13 U/L 15-32 L Alanine aminotransferase 21 U/L 0-33 [Enzymatic activity/volume] in Serum or Plasma (test code = 1742-6) Alkaline phosphatase [Enzymatic 84 U/L 35-105 activity/volume] in Serum or Plasma (test code = 6768-6) [facility] HospitalMagnesium [Moles/volume] in Unspecified specimen 2019-07-26 02:15:00 Test Item Value Reference Range Interpretation Comments magnesium level (test code = 2.0 mg/dL 1.6-2.4 magnesium level) [facility]allprocal[facility] 02:15:00 Test Item Value Reference Range Interpretation Comments Procalcitonin [Mass/volume] in 8.3 NG/mL 0.0-0.8 H Serum or Plasma (test code = 48705-8) [facility] HospitalUrinalysis complete panel - [id number] 08:50:00 Test Item Value Reference Range Interpretation Comments Color of Urine by Auto (test code yellow = 86620-6) Appearance of Urine (test code = cloudy clear 5767-9) Glucose [Mass/volume] in Urine negative negative (test code = 2350-7) bilirubin, urine (test code = negative negative bilirubin, urine) ketone, urine (test code = negative negative ketone, urine) Specific gravity of Urine by 1.010 1.003-1.030 Automated test strip (test code = 43989-9) Hemoglobin [Presence] in Urine by large negative H Test strip (test code = 5794-3) pH of Urine (test code = 2756-5) 5.500 5-9 protein urine (UA) (test code = negative negative protein urine (UA)) Urobilinogen [Presence] in Urine 0.2 E.U./dL 0.2-1.0 (test code = 16727-1) Nitrite [Presence] in Urine by positive negative Test strip (test code = 5802-4) urine leukocyte esterase (test moderate negative H code = urine leukocyte esterase) Erythrocytes [Presence] in Urine =6-10 0-5 (test code = 44029-8) WBC, urine (test code = WBC, =20-29 0-5 H urine) Epithelial cells [Presence] in none seen 0-5 Urine sediment by Light microscopy (test code = 37797-4) bacteria, urine (test code = large none detect H bacteria, urine) urine culture added? (test code = yes urine culture added?) [facility] HospitalBacteria identified in Urine by [id number] 08:50:00Bacteria Ur CultSouth [facility]flower [facility] Hospitalantibiotic sensitivity testing, [id number] 08:50:00 Test Item Value Reference Range Interpretation Comments Gentamicin [Susceptibility] by <4 Minimum inhibitory concentration (YUNG) (test code = 267-5) Ampicillin [Susceptibility] by 16 ug/mL Minimum inhibitory concentration (YUNG) (test code = 28-1) Cefazolin [Susceptibility] by <8 Minimum inhibitory concentration (YUNG) (test code = 76-0) Trimethoprim+Sulfamethoxazole =2/38 [Susceptibility] by Minimum inhibitory concentration (YUNG) (test code = 516-5) Tetracycline [Susceptibility] by <4 Minimum inhibitory concentration (YUNG) (test code = 496-0) Amoxicillin+Clavulanate =8/4 [Susceptibility] by Minimum inhibitory concentration (YUNG) (test code = 20-8) Tobramycin [Susceptibility] by <4 Minimum inhibitory concentration (YUNG) (test code = 508-2) Nitrofurantoin [Susceptibility] by 64 ug/mL Minimum inhibitory concentration (YUNG) (test code = 363-2) Cefotaxime [Susceptibility] by <2 Minimum inhibitory concentration (YUNG) (test code = 108-1) Cefepime [Susceptibility] by Minimum <8 inhibitory concentration (YUNG) (test code = 6644-9) Levofloxacin [Susceptibility] by <2 Minimum inhibitory concentration (YUNG) (test code = 81944-6) Piperacillin+Tazobactam <16 [Susceptibility] by Minimum inhibitory concentration (YUNG) (test code = 412-7) Ceftazidime [Susceptibility] by <1 Minimum inhibitory concentration (YUNG) (test code = 133-9) Ceftriaxone [Susceptibility] by <8 Minimum inhibitory concentration (YUNG) (test code = 141-2) Ciprofloxacin [Susceptibility] by <1 Minimum inhibitory concentration (YUNG) (test code = 185-9) Imipenem [Susceptibility] by Minimum <4 inhibitory concentration (YUNG) (test code = 279-0) Ampicillin+Sulbactam =8/4 [Susceptibility] by Minimum inhibitory concentration (YUNG) (test code = 32-3) Ertapenem [Susceptibility] by <2 Minimum inhibitory concentration (YUNG) (test code = 23849-5) Aztreonam [Susceptibility] by <8 Minimum inhibitory concentration (YUNG) (test code = 44-8) Cefuroxime [Susceptibility] by <4 Minimum inhibitory concentration (YUNG) (test code = 75273-0) Meropenem [Susceptibility] by <4 Minimum inhibitory concentration (YUNG) (test code = 6652-2) [facility] GroupLactate [Mass/volume] in Serum or [id number] 08:09:00 Test Item Value Reference Range Interpretation Comments lactic acid (test code = lactic 1.13 mmol/L 0.5-2.2 acid) [facility]Com[facility] 2000 [facility] - Serum or Plasma 2019-07-25 08:09:00 Test Item Value Reference Range Interpretation Comments Glucose [Mass/volume] in Serum or 98 mg/dL 82-115 Plasma (test code = 2345-7) Urea nitrogen [Mass/volume] in 71 mg/dL 8-23 Serum or Plasma (test code = 3094-0) osmolality calculated, serum (test 291 280-300 code = osmolality calculated, serum) creatinine (test code = 1.5 mg/dL 0.50-0.90 H creatinine) glomerular filtration rate (test 33.50 L code = glomerular filtration rate) Urea nitrogen/Creatinine [Mass 47.3 12-20 H Ratio] in Serum or Plasma (test code = 3097-3) sodium level (test code = sodium 135 mmol/L 135-145 level) potassium level (test code = 4.4 mmol/L 3.5-5.2 potassium level) chloride level (test code = 102 mmol/L 98-108 chloride level) CO2 (test code = CO2) 19 mmol/L 21-32 L anion gap (test code = anion gap) 18.4 mEq/L 12-20 calcium level (test code = calcium 9.7 mg/dL 8.8-10.2 level) total protein (test code = total 7.7 g/dL 6.6-8.7 protein) albumin (test code = albumin) 3.7 g/dL 3.5-5.2 globulin (test code = globulin) 4.0 gm/dL A/G ratio (test code = A/G ratio) 0.9 >1.0 bilirubin,total (test code = 0.5 mg/dL 0.0-1.2 bilirubin,total) AST/SGOT (test code = AST/SGOT) 17 U/L 15-32 Alanine aminotransferase 28 U/L 0-33 [Enzymatic activity/volume] in Serum or Plasma (test code = 1742-6) Alkaline phosphatase [Enzymatic 95 U/L 35-105 activity/volume] in Serum or Plasma (test code = 6768-6) [facility] HospitalCreatine kinase [Enzymatic activity/volume] in Serum or [id number] 08:09:00 Test Item Value Reference Range Interpretation Comments creatine kinase (test code = creatine 22 U/L 20-180 kinase) [facility] W Auto Differential panel - [id number] 08:09:00 Test Item Value Reference Range Interpretation Comments white blood count (test code = 9.7 K/uL 4.0-11.5 white blood count) red blood count (test code = red 3.58 M/uL 3.80-5.20 L blood count) hemoglobin (test code = 12.2 g/dL 10.5-15.7 hemoglobin) hematocrit (test code = 37.6 % 34.0-50.0 hematocrit) Erythrocyte mean corpuscular 105.0 fL 86-100 H volume [Entitic volume] (test code = 60217-1) mean corpuscular hemoglobin (test 34.1 pg 26.2-33.4 H code = mean corpuscular hemoglobin) mean corpuscular HGB conc (test 32.4 g/dL 30-34 code = mean corpuscular HGB conc) red cell distribution width (test 14.0 % 12.0-15.5 code = red cell distribution width) platelet count (test code = 265 K/uL 165-450 platelet count) mean platelet volume (test code = 9.1 fL 9.4-12.6 L mean platelet volume) Neutrophils.segmented/100 62.7 % 44.4-80.1 leukocytes in Blood (test code = 01377-7) Granulocytes Immature [#/volume] 0.0 K/uL 0.0-0.03 in Blood (test code = 68455-8) lymphocyte% (test code = 20.6 % 10.0-50.0 lymphocyte%) mono % (test code = mono %) 13.4 % 3.6-12.0 H eos % (test code = eos %) 2.4 % 0.0-5.4 Basophils/100 leukocytes in 0.5 % 0.1-1.2 Unspecified specimen (test code = 85449-1) Neutrophils.band form [#/volume] 6.05 K/uL 1.56-6.13 in Blood (test code = 90215-3) Lymphocytes [#/volume] in 2.0 K/uL 1.18-3.74 Unspecified specimen by Automated count (test code = 53494-9) mono # (test code = mono #) 1.29 K/uL 0.24-0.86 H eos # (test code = eos #) 0.23 K/uL 0.04-0.36 basophil # (test code = basophil 0.05 K/uL 0.01-0.08 #) NRBC% (test code = NRBC%) 0 /100 WBC 0-0.2 NRBC# (test code = NRBC#) 0 K/uL [facility]differential panel, [id number] 08:09:00 NeutrophilsBandLymphocyteAtypical LymphMonocyteEosinophilBasophilPlatelet EstimatePlatelet MorphologyToxic GranulationHypersegmented PolysSt. Lawrence Psychiatric CentergoAlliance HospitalTroponin I.cardiac [Mass/volume] in [id number] 08:09:00 Test Item Value Reference Range Interpretation Comments cardiac troponin I (test code = cardiac <0.30 0.0-0.5 troponin I) [facility] HospitalCreatine kinase.MB [Mass/volume] in Serum or Plasma 2019-07-25 08:09:00 Test Item Value Reference Range Interpretation Comments mass creatinine kinase-mb (test 1.5 NG/mL 0.0-3.6 code = mass creatinine kinase-mb) [facility] HospitalMyoglobin [Mass/volume] in Serum or [id number] 08:09:00 Test Item Value Reference Range Interpretation Comments myoglobin (test code = myoglobin) 63 NG/mL 25-58 H [facility] HospitalCortisol [Mass/volume] in Serum or Plasma --morning [id number] 08:09:00 Test Item Value Reference Range Interpretation Comments cortisol,AM (test code = 20.7 ug/dL 6.20-19.4 H cortisol,AM) [facility] HospitalThyrotropin [Units/volume] in Serum or [id number] 08:09:00 Test Item Value Reference Range Interpretation Comments Thyrotropin [Units/volume] in 1.93 uIU/mL 0.36-3.74 Serum or Plasma (test code = 3016-3) [facility]procal[facility] 08:09:00 Test Item Value Reference Range Interpretation Comments Procalcitonin [Mass/volume] in 7.2 NG/mL 0.0-0.8 H Serum or Plasma (test code = 05281-3) [facility] HospitalThyroxine (T4) free [Mass/volume] in Serum or Plasma 2019-07-25 08:09:00 Test Item Value Reference Range Interpretation Comments free T4 (test code = free T4) 0.95 NG/dL 0.93-1.7 [facility] HospitalDigoxin [Mass/volume] in Serum or [id number] 08:00:00 Test Item Value Reference Range Interpretation Comments digoxin level (test code = digoxin 5.31 NG/mL 0.8-2.0 level) [facility] HospitalUrinalysis complete W Reflex Culture panel - Urine 2019-07-15 01:42:00 Test Item Value Reference Range Interpretation Comments Color of Urine by Auto light yellow (test code = 45966-3) Appearance of Urine (test SL cloudy clear A code = 5767-9) Glucose [Mass/volume] in negative negative Urine (test code = 2350-7) bilirubin, urine (test negative negative code = bilirubin, urine) ketone, urine (test code = negative negative ketone, urine) Specific gravity of Urine <=1.005 1.003-1.030 by Automated test strip (test code = 29589-0) Hemoglobin [Presence] in negative H Urine by Test strip (test code = 5794-3) pH of Urine (test code = 6.000 5-9 2756-5) protein urine (UA) (test negative negative code = protein urine (UA)) Urobilinogen [Presence] in 0.2 E.U./dL 0.2-1.0 Urine (test code = 29479-3) Nitrite [Presence] in positive negative Urine by Test strip (test code = 5802-4) urine leukocyte esterase =3 negative H (test code = urine leukocyte esterase) Erythrocytes [Presence] in =6-10 0-5 Urine (test code = 90239-3) WBC, urine (test code = >50 0-5 H WBC, urine) bacteria, urine (test code full field none detect H = bacteria, urine) Casts [#/area] in Urine hyaline casts 6-10 none detect sediment by Automated count (test code = 14550-0) urine culture added? (test yes code = urine culture added?) squamous epithelial cell =0-5 0-5 urine (test code = squamous epithelial cell urine) [facility] HospitalBacteria identified in Urine by [id number] 01:42:00[facility] Ur [facility], [id number] 01:42:00 Test Item Value Reference Range Interpretation Comments Gentamicin [Susceptibility] by <4 Minimum inhibitory concentration (YUNG) (test code = 267-5) Ampicillin [Susceptibility] by 16 ug/mL Minimum inhibitory concentration (YUNG) (test code = 28-1) Cefazolin [Susceptibility] by <8 Minimum inhibitory concentration (YUNG) (test code = 76-0) Trimethoprim+Sulfamethoxazole =2/38 [Susceptibility] by Minimum inhibitory concentration (YUNG) (test code = 516-5) Tetracycline [Susceptibility] by <4 Minimum inhibitory concentration (YUNG) (test code = 496-0) Amoxicillin+Clavulanate =8/4 [Susceptibility] by Minimum inhibitory concentration (YUNG) (test code = 20-8) Tobramycin [Susceptibility] by <4 Minimum inhibitory concentration (YUNG) (test code = 508-2) Nitrofurantoin [Susceptibility] by <32 Minimum inhibitory concentration (YUNG) (test code = 363-2) Cefotaxime [Susceptibility] by <2 Minimum inhibitory concentration (YUNG) (test code = 108-1) Cefepime [Susceptibility] by Minimum <8 inhibitory concentration (YUNG) (test code = 6644-9) Levofloxacin [Susceptibility] by <2 Minimum inhibitory concentration (YUNG) (test code = 21298-3) Piperacillin+Tazobactam <16 [Susceptibility] by Minimum inhibitory concentration (YUNG) (test code = 412-7) Ceftazidime [Susceptibility] by <1 Minimum inhibitory concentration (YUNG) (test code = 133-9) Ceftriaxone [Susceptibility] by <8 Minimum inhibitory concentration (YUNG) (test code = 141-2) Ciprofloxacin [Susceptibility] by <1 Minimum inhibitory concentration (YUNG) (test code = 185-9) Imipenem [Susceptibility] by Minimum <4 inhibitory concentration (YUNG) (test code = 279-0) Ampicillin+Sulbactam =8/4 [Susceptibility] by Minimum inhibitory concentration (YUNG) (test code = 32-3) Ertapenem [Susceptibility] by <2 Minimum inhibitory concentration (YUNG) (test code = 49931-8) Aztreonam [Susceptibility] by >16 Minimum inhibitory concentration (YUNG) (test code = 44-8) Cefuroxime [Susceptibility] by <4 Minimum inhibitory concentration (YUNG) (test code = 74176-5) Meropenem [Susceptibility] by <4 Minimum inhibitory concentration (YUNG) (test code = 6652-2) [facility] HospitalThyrotropin [Units/volume] in Serum or [id number] 08:50:00 Test Item Value Reference Range Interpretation Comments Thyrotropin [Units/volume] in 2.68 uIU/mL 0.36-3.74 Serum or Plasma (test code = 3016-3) [facility] HospitalUrinalysis complete panel - [id number] 08:21:00 Test Item Value Reference Range Interpretation Comments Color of Urine by Auto (test yellow code = 30101-1) Appearance of Urine (test code clear clear = 5767-9) Glucose [Presence] in Urine by negative negative Automated test strip (test code = 32129-5) Bilirubin.total [Mass/volume] negative negative in Urine (test code = 1978-6) Ketones [Mass/volume] in Urine negative negative by Automated test strip (test code = 71550-7) Specific gravity of Urine by 1.016 1.003-1.030 Automated test strip (test code = 22130-8) blood urine (test code = blood negative negative urine) pH of Urine (test code = 6.000 5-9 2756-5) protein urine (UA) (test code = negative negative protein urine (UA)) Urobilinogen [Presence] in normal 0.2-1.0 Urine (test code = 54469-8) Nitrite [Presence] in Urine by negative negative Test strip (test code = 5802-4) Leukocyte esterase [Presence] =1 negative H in Urine by Automated test strip (test code = 48806-2) Erythrocytes [#/volume] in <1 0-5 Urine by Automated count (test code = 798-9) Leukocytes [#/area] in Urine =1-5 0-5 sediment by Automated count (test code = 30997-2) Epithelial cells [Presence] in =1-5 0-5 Urine sediment by Light microscopy (test code = 23462-0) Bacteria identified in Urine by none detected none detect Culture (test code = 630-4) Casts [#/area] in Urine =2-5 none detect sediment by Automated count (test code = 22027-4) urine culture added? (test code yes = urine culture added?) [facility] identified in Urine by [id number] 08:21:00 Test Item Value Reference Range Interpretation Comments Bacteria identified in no growth after 2 Urine by Culture (test days. code = 630-4) [facility] HospitalUrinalysis complete panel - [id number] 08:21:00 Test Item Value Reference Range Interpretation Comments Color of Urine by Auto (test yellow code = 64080-2) Appearance of Urine (test code clear clear = 5767-9) Glucose [Presence] in Urine by negative negative Automated test strip (test code = 14171-2) Bilirubin.total [Mass/volume] negative negative in Urine (test code = 1978-6) Ketones [Mass/volume] in Urine negative negative by Automated test strip (test code = 45881-0) Specific gravity of Urine by 1.016 1.003-1.030 Automated test strip (test code = 79291-5) blood urine (test code = blood negative negative urine) pH of Urine (test code = 6.000 5-9 2756-5) protein urine (UA) (test code = negative negative protein urine (UA)) Urobilinogen [Presence] in normal 0.2-1.0 Urine (test code = 66896-9) Nitrite [Presence] in Urine by negative negative Test strip (test code = 5802-4) Leukocyte esterase [Presence] =1 negative H in Urine by Automated test strip (test code = 53887-3) Erythrocytes [#/volume] in <1 0-5 Urine by Automated count (test code = 798-9) Leukocytes [#/area] in Urine =1-5 0-5 sediment by Automated count (test code = 35851-4) Epithelial cells [Presence] in =1-5 0-5 Urine sediment by Light microscopy (test code = 64757-4) Bacteria identified in Urine by none detected none detect Culture (test code = 630-4) Casts [#/area] in Urine =2-5 none detect sediment by Automated count (test code = 05894-6) urine culture added? (test code yes = urine culture added?) [facility] by [id number] 08:21:00 Test Item Value Reference Range Interpretation Comments Bacteria identified in no growth after 2 Urine by Culture (test days. code = 630-4) [facility] - [id number] 08:53:00 Test Item Value Reference Range Interpretation Comments white blood count (test code = 8.2 K/uL 4.0-11.5 white blood count) red blood count (test code = red 4.02 M/uL 3.80-5.20 blood count) hemoglobin (test code = 12.7 g/dL 10.5-15.7 hemoglobin) hematocrit (test code = 41.6 % 34.0-50.0 hematocrit) Erythrocyte mean corpuscular 103.5 fL 86-100 H volume [Entitic volume] (test code = 36946-2) Erythrocyte mean corpuscular 31.6 pg 26.2-33.4 hemoglobin [Entitic mass] (test code = 17225-8) mean corpuscular HGB conc (test 30.5 g/dL 30-34 code = mean corpuscular HGB conc) red cell distribution width (test 13.0 % 12.0-15.5 code = red cell distribution width) platelet count (test code = 275 K/uL 165-450 platelet count) mean platelet volume (test code = 8.4 fL 9.4-12.6 L mean platelet volume) Neutrophils.segmented/100 51.4 % 44.4-80.1 leukocytes in Blood (test code = 74150-5) Ig% (test code = Ig%) 0.2 % 0.0-0.4 lymphocyte% (test code = 32.2 % 10.0-50.0 lymphocyte%) Monocytes/100 leukocytes in Blood 10.4 % 3.6-12.0 by Automated count (test code = 5905-5) Eosinophils/100 leukocytes in 4.9 % 0.0-5.4 Blood by Automated count (test code = 713-8) Basophils/100 leukocytes in 0.9 % 0.1-1.2 Unspecified specimen (test code = 75746-0) absolute neutrophil count (test 4.23 K/uL 1.56-6.13 code = absolute neutrophil count) Ig# (test code = Ig#) 0.0 K/uL 0.0-0.03 Lymphocytes [#/volume] in 2.6 K/uL 1.18-3.74 Unspecified specimen by Automated count (test code = 13128-9) mono # (test code = mono #) 0.85 K/uL 0.24-0.86 eos # (test code = eos #) 0.40 K/uL 0.04-0.36 H basophil # (test code = basophil 0.07 K/uL 0.01-0.08 #) NRBC% (test code = NRBC%) 0 /100 WBC 0-0.2 NRBC# (test code = NRBC#) 0 K/uL [facility], [id number] 08:53:00 NeutrophilsBandLymphocyteAtypical LymphMonocyteEosinophilBasophilMetamyelocyteNucleated Red Blood CellPlatelet EstimatePlatelet MorphologyHypochromasiaPoikilocytosisAnisocytosisMicrocytosisTarget CellsO valocytesToxic GranulationBurr CellsAcanthocytesHypersegmented PolysRouleau [facility]Comprehensive [facility] 2000 panel - Serum or Plasma 2019-05-20 08:53:00 Test Item Value Reference Range Interpretation Comments glucose (test code = glucose) 106 mg/dL 82-115 Urea nitrogen [Mass/volume] in 39 mg/dL 8-23 Serum or Plasma (test code = 3094-0) Osmolality of Serum or Plasma 286 280-300 (test code = 2692-2) creatinine (test code = 1.2 mg/dL 0.50-0.90 H creatinine) glomerular filtration rate (test 43.34 L code = glomerular filtration rate) Urea nitrogen/Creatinine [Mass 32.5 12-20 H Ratio] in Serum or Plasma (test code = 3097-3) sodium level (test code = sodium 138 mmol/L 135-145 level) Potassium [Moles/volume] in Body 4.6 mmol/L 3.5-5.2 fluid (test code = 2821-7) chloride level (test code = 101 mmol/L 98-108 chloride level) CO2 (test code = CO2) 26 mmol/L 21-32 anion gap (test code = anion gap) 15.6 mEq/L 12-20 calcium level (test code = calcium 10.0 mg/dL 8.8-10.2 level) total protein (test code = total 8.0 g/dL 6.6-8.7 protein) albumin (test code = albumin) 3.9 g/dL 3.5-5.2 globulin (test code = globulin) 4.1 gm/dL A/G ratio (test code = A/G ratio) 1.0 >1.0 bilirubin,total (test code = 0.5 mg/dL 0.0-1.2 bilirubin,total) AST/SGOT (test code = AST/SGOT) 21 U/L 15-32 Alanine aminotransferase 14 U/L 0-33 [Enzymatic activity/volume] in Serum or Plasma (test code = 1742-6) Alkaline phosphatase [Enzymatic 70 U/L 35-105 activity/volume] in Serum or Plasma (test code = 6768-6) [facility]Dig[facility] [Mass/volume] in Serum or [id number] 08:53:00 Test Item Value Reference Range Interpretation Comments digoxin level (test code = digoxin 1.27 NG/mL 0.8-2.0 level) [facility] W Auto Differential panel - [id number] 08:53:00 Test Item Value Reference Range Interpretation Comments white blood count (test code = 8.2 K/uL 4.0-11.5 white blood count) red blood count (test code = red 4.02 M/uL 3.80-5.20 blood count) hemoglobin (test code = 12.7 g/dL 10.5-15.7 hemoglobin) hematocrit (test code = 41.6 % 34.0-50.0 hematocrit) Erythrocyte mean corpuscular 103.5 fL 86-100 H volume [Entitic volume] (test code = 93232-2) Erythrocyte mean corpuscular 31.6 pg 26.2-33.4 hemoglobin [Entitic mass] (test code = 66846-1) mean corpuscular HGB conc (test 30.5 g/dL 30-34 code = mean corpuscular HGB conc) red cell distribution width (test 13.0 % 12.0-15.5 code = red cell distribution width) platelet count (test code = 275 K/uL 165-450 platelet count) mean platelet volume (test code = 8.4 fL 9.4-12.6 L mean platelet volume) Neutrophils.segmented/100 51.4 % 44.4-80.1 leukocytes in Blood (test code = 87284-4) Ig% (test code = Ig%) 0.2 % 0.0-0.4 lymphocyte% (test code = 32.2 % 10.0-50.0 lymphocyte%) Monocytes/100 leukocytes in Blood 10.4 % 3.6-12.0 by Automated count (test code = 5905-5) Eosinophils/100 leukocytes in 4.9 % 0.0-5.4 Blood by Automated count (test code = 713-8) Basophils/100 leukocytes in 0.9 % 0.1-1.2 Unspecified specimen (test code = 97272-8) absolute neutrophil count (test 4.23 K/uL 1.56-6.13 code = absolute neutrophil count) Ig# (test code = Ig#) 0.0 K/uL 0.0-0.03 Lymphocytes [#/volume] in 2.6 K/uL 1.18-3.74 Unspecified specimen by Automated count (test code = 07683-5) mono # (test code = mono #) 0.85 K/uL 0.24-0.86 eos # (test code = eos #) 0.40 K/uL 0.04-0.36 H basophil # (test code = basophil 0.07 K/uL 0.01-0.08 #) NRBC% (test code = NRBC%) 0 /100 WBC 0-0.2 NRBC# (test code = NRBC#) 0 K/uL [facility], [id number] 08:53:00 NeutrophilsBandLymphocyteAtypical LymphMonocyteEosinophilBasophilMetamyelocyteNucleated Red Blood CellPlatelet EstimatePlatelet MorphologyHypochromasiaPoikilocytosisAnisocytosisMicrocytosisTarget CellsO valocytesToxic GranulationBurr CellsAcanthocytesHypersegmented PolysRouleau [facility] HospitalComprehensive metabolic 2000 panel - Serum or Plasma 2019-05-20 08:53:00 Test Item Value Reference Range Interpretation Comments glucose (test code = glucose) 106 mg/dL 82-115 Urea nitrogen [Mass/volume] in 39 mg/dL 8-23 Serum or Plasma (test code = 3094-0) Osmolality of Serum or Plasma 286 280-300 (test code = 2692-2) creatinine (test code = 1.2 mg/dL 0.50-0.90 H creatinine) glomerular filtration rate (test 43.34 L code = glomerular filtration rate) Urea nitrogen/Creatinine [Mass 32.5 12-20 H Ratio] in Serum or Plasma (test code = 3097-3) sodium level (test code = sodium 138 mmol/L 135-145 level) Potassium [Moles/volume] in Body 4.6 mmol/L 3.5-5.2 fluid (test code = 2821-7) chloride level (test code = 101 mmol/L 98-108 chloride level) CO2 (test code = CO2) 26 mmol/L 21-32 anion gap (test code = anion gap) 15.6 mEq/L 12-20 calcium level (test code = calcium 10.0 mg/dL 8.8-10.2 level) total protein (test code = total 8.0 g/dL 6.6-8.7 protein) albumin (test code = albumin) 3.9 g/dL 3.5-5.2 globulin (test code = globulin) 4.1 gm/dL A/G ratio (test code = A/G ratio) 1.0 >1.0 bilirubin,total (test code = 0.5 mg/dL 0.0-1.2 bilirubin,total) AST/SGOT (test code = AST/SGOT) 21 U/L 15-32 Alanine aminotransferase 14 U/L 0-33 [Enzymatic activity/volume] in Serum or Plasma (test code = 1742-6) Alkaline phosphatase [Enzymatic 70 U/L 35-105 activity/volume] in Serum or Plasma (test code = 6768-6) [facility]Dig[facility] [Mass/volume] in Serum or [id number] 08:53:00 Test Item Value Reference Range Interpretation Comments digoxin level (test code = digoxin 1.27 NG/mL 0.8-2.0 level) [facility] W Auto Differential panel - [id number] 08:24:00 Test Item Value Reference Range Interpretation Comments white blood count (test code = 6.5 K/uL 4.0-11.5 white blood count) red blood count (test code = red 3.77 M/uL 3.80-5.20 L blood count) Hemoglobin [Mass/volume] in Blood 12.2 g/dL 10.5-15.7 (test code = 718-7) hematocrit (test code = hematocrit) 38.7 % 34.0-50.0 Erythrocyte mean corpuscular volume 103.0 fL 78-98 H [Entitic volume] (test code = 98222-5) Erythrocyte mean corpuscular 32.4 pg 26.2-33.4 hemoglobin [Entitic mass] (test code = 62559-7) mean corpuscular HGB conc (test 31.5 g/dL 31.5-36.2 code = mean corpuscular HGB conc) red cell distribution width (test 12.3 % 11.5-15.5 code = red cell distribution width) Platelets [#/volume] in Blood (test 246 K/uL 137-338 code = 50284-1) Platelet mean volume [Entitic 5.8 fL 8.4-11.8 L volume] in Blood (test code = 07330-7) Neutrophils.band form/100 37.6 % 44.4-80.1 L leukocytes in Blood (test code = 61521-9) Lymphocytes/100 leukocytes in Body 46.2 % 10.0-50.0 fluid (test code = 83233-4) Monocytes/100 leukocytes in Blood 10.0 % 3.6-12.0 by Automated count (test code = 5905-5) Eosinophils/100 leukocytes in Blood 5.0 % 0.0-5.4 by Automated count (test code = 713-8) Basophils/100 leukocytes in 1.2 % 0.0-0.79 H Unspecified specimen (test code = 97700-5) [facility], [id number] 08:24:00 NeutrophilsBandLymphocyteMonocyteEosinophilPlatelet EstimatePlatelet MorphologyHypochromasiaPoikilocytosisAnisocytosisMaNorth [facility] Urinalysis complete W Reflex Culture panel - [id number] 08:24:00 Test Item Value Reference Range Interpretation Comments Color of Urine by Auto (test yellow code = 64804-9) Appearance of Urine (test code SL cloudy clear A = 5767-9) Glucose [Presence] in Urine by negative negative Automated test strip (test code = 85924-7) Bilirubin.total [Mass/volume] negative negative in Urine (test code = 1978-6) Ketones [Mass/volume] in Urine negative negative by Automated test strip (test code = 63674-9) Specific gravity of Urine by 1.011 1.003-1.030 Automated test strip (test code = 12550-0) blood urine (test code = blood trace negative urine) pH of Urine (test code = 5.500 5-9 2756-5) protein urine (UA) (test code = negative negative protein urine (UA)) Urobilinogen [Presence] in normal 0.2-1.0 Urine (test code = 90690-1) Nitrite [Presence] in Urine by negative negative Test strip (test code = 5802-4) Leukocyte esterase [Presence] =4 negative H in Urine by Automated test strip (test code = 42751-3) Erythrocytes [#/volume] in =1-5 0-5 Urine by Automated count (test code = 798-9) Leukocytes [#/area] in Urine >50 0-5 H sediment by Automated count (test code = 40663-5) Epithelial cells [Presence] in <1 0-5 Urine sediment by Light microscopy (test code = 97456-8) Bacteria identified in Urine by none detected none detect Culture (test code = 630-4) Casts [#/area] in Urine =2-5 none detect sediment by Automated count (test code = 25044-5) urine culture added? (test code yes = urine culture added?) [facility] - Serum or Plasma 2019-05-08 08:24:00 Test Item Value Reference Range Interpretation Comments Glucose [Mass/volume] in Serum or 84 mg/dL 82-115 Plasma (test code = 2345-7) Urea nitrogen [Mass/volume] in 67 mg/dL 8-23 Serum or Plasma (test code = 3094-0) Osmolality of Serum or Plasma 295 280-300 (test code = 2692-2) creatinine (test code = 1.1 mg/dL 0.50-0.90 H creatinine) glomerular filtration rate (test 47.91 L code = glomerular filtration rate) Urea nitrogen/Creatinine [Mass 60.9 12-20 H Ratio] in Serum or Plasma (test code = 3097-3) sodium level (test code = sodium 138 mmol/L 135-145 level) potassium level (test code = 4.1 mmol/L 3.5-5.2 potassium level) chloride level (test code = 101 mmol/L 98-108 chloride level) CO2 (test code = CO2) 25 mmol/L 21-32 anion gap (test code = anion gap) 16.1 mEq/L 12-20 calcium level (test code = calcium 9.9 mg/dL 8.8-10.2 level) total protein (test code = total 7.5 g/dL 6.6-8.7 protein) albumin (test code = albumin) 4.1 g/dL 3.5-5.2 globulin (test code = globulin) 3.4 gm/dL A/G ratio (test code = A/G ratio) 1.2 >1.0 bilirubin,total (test code = 0.5 mg/dL 0.0-1.2 bilirubin,total) AST/SGOT (test code = AST/SGOT) 22 U/L 15-32 Alanine aminotransferase 16 U/L 0-33 [Enzymatic activity/volume] in Serum or Plasma (test code = 1742-6) Alkaline phosphatase [Enzymatic 73 U/L 35-105 activity/volume] in Serum or Plasma (test code = 6768-6) [facility] - Serum or [id number] 08:24:00 Test Item Value Reference Range Interpretation Comments cholesterol level (test code = 147 mg/dL 150-200 L cholesterol level) triglycerides level (test code = 150 mg/dL <150 triglycerides level) HDL cholesterol (test code = HDL 70 mg/dL >65 cholesterol) LDL cholesterol direct (test code = 67 mg/dL <100 LDL cholesterol direct) cholesterol risk ratio (test code = 2.100 cholesterol risk ratio) [facility] HospitalThyrotropin [Units/volume] in Serum or [id number] 08:24:00 Test Item Value Reference Range Interpretation Comments Thyrotropin [Units/volume] in 0.09 uIU/mL 0.36-3.74 L Serum or Plasma (test code = 3016-3) [facility]Bacteria identified in Urine by [id number] 08:24:00[facility] [id number] 08:24:00 Test Item Value Reference Range Interpretation Comments Gentamicin [Susceptibility] by Minimum <4 inhibitory concentration (YUNG) (test code = 267-5) Ampicillin [Susceptibility] by Minimum <8 inhibitory concentration (YUNG) (test code = 28-1) Cefazolin [Susceptibility] by Minimum <8 inhibitory concentration (YUNG) (test code = 76-0) Trimethoprim+Sulfamethoxazole =2/38 [Susceptibility] by Minimum inhibitory concentration (YUNG) (test code = 516-5) Tetracycline [Susceptibility] by <4 Minimum inhibitory concentration (YUNG) (test code = 496-0) Amoxicillin+Clavulanate =8/4 [Susceptibility] by Minimum inhibitory concentration (YUNG) (test code = 20-8) Tobramycin [Susceptibility] by Minimum <4 inhibitory concentration (YUNG) (test code = 508-2) Nitrofurantoin [Susceptibility] by <32 Minimum inhibitory concentration (YUNG) (test code = 363-2) Cefotaxime [Susceptibility] by Minimum <2 inhibitory concentration (YUNG) (test code = 108-1) Cefepime [Susceptibility] by Minimum <8 inhibitory concentration (YUNG) (test code = 6644-9) Levofloxacin [Susceptibility] by <2 Minimum inhibitory concentration (YUNG) (test code = 04756-2) Piperacillin+Tazobactam <16 [Susceptibility] by Minimum inhibitory concentration (YUNG) (test code = 412-7) Ceftazidime [Susceptibility] by Minimum <1 inhibitory concentration (YUNG) (test code = 133-9) Ceftriaxone [Susceptibility] by Minimum <8 inhibitory concentration (YUNG) (test code = 141-2) Ciprofloxacin [Susceptibility] by <1 Minimum inhibitory concentration (YUNG) (test code = 185-9) Imipenem [Susceptibility] by Minimum <4 inhibitory concentration (YUNG) (test code = 279-0) Ampicillin+Sulbactam [Susceptibility] =8/4 by Minimum inhibitory concentration (YUNG) (test code = 32-3) Ertapenem [Susceptibility] by Minimum <2 inhibitory concentration (YUNG) (test code = 52635-0) Aztreonam [Susceptibility] by Minimum <8 inhibitory concentration (YUNG) (test code = 44-8) [id number] (test code = oul4897) <4 Meropenem [Susceptibility] by Minimum <4 inhibitory concentration (YUNG) (test code = 6652-2) [facility] W Auto Differential panel - [id number] 02:25:00 Test Item Value Reference Range Interpretation Comments white blood count (test code = 6.5 K/uL 4.0-11.5 white blood count) red blood count (test code = red 2.74 M/uL 3.80-5.20 L blood count) Hemoglobin [Mass/volume] in Blood 9.1 g/dL 10.5-15.7 L (test code = 718-7) hematocrit (test code = hematocrit) 28.8 % 34.0-50.0 Erythrocyte mean corpuscular volume 105.0 fL 78-98 H [Entitic volume] (test code = 38427-9) Erythrocyte mean corpuscular 33.3 pg 26.2-33.4 hemoglobin [Entitic mass] (test code = 29385-4) mean corpuscular HGB conc (test 31.6 g/dL 31.5-36.2 code = mean corpuscular HGB conc) red cell distribution width (test 13.0 % 11.5-15.5 code = red cell distribution width) Platelets [#/volume] in Blood (test 236 K/uL 137-338 code = 66960-0) Platelet mean volume [Entitic 5.7 fL 8.4-11.8 L volume] in Blood (test code = 27341-5) Neutrophils.band form/100 50.8 % 44.4-80.1 leukocytes in Blood (test code = 24957-1) Lymphocytes/100 leukocytes in Body 31.6 % 10.0-50.0 fluid (test code = 80956-0) Monocytes/100 leukocytes in Blood 13.4 % 3.6-12.04 by Automated count (test code = 5905-5) Eosinophils/100 leukocytes in Blood 2.9 % 0.0-5.41 by Automated count (test code = 713-8) Basophils/100 leukocytes in 1.3 % 0.0-0.79 H Unspecified specimen (test code = 39856-7) [facility]Com[facility] 2000 [facility] - Serum or Plasma 2019-03-16 02:25:00 Test Item Value Reference Range Interpretation Comments Glucose [Mass/volume] in Serum or 92 mg/dL 82-115 Plasma (test code = 2345-7) Urea nitrogen [Mass/volume] in 26 mg/dL 8-23 H Serum or Plasma (test code = 3094-0) Osmolality of Serum or Plasma 273 280-300 L (test code = 2692-2) creatinine (test code = 1.1 mg/dL 0.50-0.90 H creatinine) glomerular filtration rate (test 47.91 L code = glomerular filtration rate) Urea nitrogen/Creatinine [Mass 23.6 12-20 H Ratio] in Serum or Plasma (test code = 3097-3) sodium level (test code = sodium 134 mmol/L 135-145 L level) potassium level (test code = 3.9 mmol/L 3.5-5.2 potassium level) chloride level (test code = 102 mmol/L 98-108 chloride level) CO2 (test code = CO2) 19 mmol/L 21-32 L anion gap (test code = anion gap) 16.9 mEq/L 12-20 calcium level (test code = calcium 8.4 mg/dL 8.8-10.2 L level) total protein (test code = total 6.0 g/dL 6.6-8.7 L protein) albumin (test code = albumin) 3.1 g/dL 3.5-5.2 L globulin (test code = globulin) 2.9 gm/dL A/G ratio (test code = A/G ratio) 1.1 >1.0 bilirubin,total (test code = 0.4 mg/dL 0.0-1.2 bilirubin,total) AST/SGOT (test code = AST/SGOT) 19 U/L 15-32 Alanine aminotransferase 12 U/L 0-33 [Enzymatic activity/volume] in Serum or Plasma (test code = 1742-6) Alkaline phosphatase [Enzymatic 84 U/L 35-105 activity/volume] in Serum or Plasma (test code = 6768-6) [facility]Urinalysis complete panel - [id number] 10:38:00 Test Item Value Reference Range Interpretation Comments Color of Urine by Auto (test light yellow code = 67418-7) Appearance of Urine (test code clear clear = 5767-9) Glucose [Presence] in Urine by negative negative Automated test strip (test code = 60849-3) Bilirubin.total [Mass/volume] negative negative in Urine (test code = 1978-6) Ketones [Mass/volume] in Urine negative negative by Automated test strip (test code = 30856-2) Specific gravity of Urine by 1.009 1.003-1.030 Automated test strip (test code = 85752-4) blood urine (test code = blood negative negative urine) pH of Urine (test code = 5.000 5-9 2756-5) protein urine (UA) (test code = negative negative protein urine (UA)) Urobilinogen [Presence] in normal 0.2-1.0 Urine (test code = 45110-8) Nitrite [Presence] in Urine by negative negative Test strip (test code = 5802-4) Leukocyte esterase [Presence] =1 negative H in Urine by Automated test strip (test code = 29688-8) Erythrocytes [#/volume] in <1 0-5 Urine by Automated count (test code = 798-9) Leukocytes [#/area] in Urine <1 0-5 sediment by Automated count (test code = 69749-7) Epithelial cells [Presence] in <1 0-5 Urine sediment by Light microscopy (test code = 69621-7) Bacteria identified in Urine by none detected none detect Culture (test code = 630-4) Casts [#/area] in Urine =2-5 none detect sediment by Automated count (test code = 64942-1) urine culture added? (test code yes = urine culture added?) [facility] Urine by [id number] 10:38:00 Test Item Value Reference Range Interpretation Comments Bacteria identified in no growth at 48 hrs. Urine by Culture (test code = 630-4) [facility] W Auto Differential panel - [id number] 09:11:00 Test Item Value Reference Range Interpretation Comments white blood count (test code = 14.6 K/uL 4.0-11.5 H white blood count) red blood count (test code = red 3.39 M/uL 3.80-5.20 L blood count) Hemoglobin [Mass/volume] in Blood 11.5 g/dL 10.5-15.7 (test code = 718-7) hematocrit (test code = hematocrit) 36.4 % 34.0-50.0 Erythrocyte mean corpuscular volume 107.0 fL 78-98 H [Entitic volume] (test code = 93555-8) Erythrocyte mean corpuscular 33.9 pg 26.2-33.4 H hemoglobin [Entitic mass] (test code = 26750-3) mean corpuscular HGB conc (test 31.6 g/dL 31.5-36.2 code = mean corpuscular HGB conc) red cell distribution width (test 12.8 % 11.5-15.5 code = red cell distribution width) Platelets [#/volume] in Blood (test 350 K/uL 137-338 H code = 47274-2) Platelet mean volume [Entitic 6.1 fL 8.4-11.8 L volume] in Blood (test code = 88632-4) Neutrophils.band form/100 81.8 % 44.4-80.1 H leukocytes in Blood (test code = 63330-3) Lymphocytes/100 leukocytes in Body 10.2 % 10.0-50.0 fluid (test code = 94451-9) Monocytes/100 leukocytes in Blood 6.7 % 3.6-12.04 by Automated count (test code = 5905-5) Eosinophils/100 leukocytes in Blood 0.5 % 0.0-5.41 by Automated count (test code = 713-8) Basophils/100 leukocytes in 0.8 % 0.0-0.79 H Unspecified specimen (test code = 76471-7) [facility], [id number] 09:11:00 NeutrophilsBandLymphocyteAtypical LymphMonocyteEosinophilBasophilMyelocyteNucleated Red Blood CellPlatelet EstimatePlatelet MorphologyHypochromasiaPoikilocytosisAnisocytosisMacrocytosisSpherocyteTarget CellsToxic GranulationHypersegmented PolysToxic VacuolationSmudge CellsSickle CellsMatagorda Medical GroupComprehensive metabolic 2000 panel - Serum or Plasma 2019-03-15 09:11:00 Test Item Value Reference Range Interpretation Comments glucose (test code = glucose) 99 mg/dL 82-115 Urea nitrogen [Mass/volume] in 29 mg/dL 8-23 H Serum or Plasma (test code = 3094-0) Osmolality of Serum or Plasma 276 280-300 L (test code = 2692-2) creatinine (test code = 1.2 mg/dL 0.50-0.90 H creatinine) glomerular filtration rate (test 43.34 L code = glomerular filtration rate) Urea nitrogen/Creatinine [Mass 24.2 12-20 H Ratio] in Serum or Plasma (test code = 3097-3) sodium level (test code = sodium 135 mmol/L 135-145 level) Potassium [Moles/volume] in Body 4.3 mmol/L 3.5-5.2 fluid (test code = 2821-7) chloride level (test code = 101 mmol/L 98-108 chloride level) CO2 (test code = CO2) 20 mmol/L 21-32 L anion gap (test code = anion gap) 18.3 mEq/L 12-20 calcium level (test code = calcium 9.9 mg/dL 8.8-10.2 level) total protein (test code = total 8.5 g/dL 6.6-8.7 protein) albumin (test code = albumin) 4.4 g/dL 3.5-5.2 globulin (test code = globulin) 4.1 gm/dL A/G ratio (test code = A/G ratio) 1.1 >1.0 bilirubin,total (test code = 0.4 mg/dL 0.0-1.2 bilirubin,total) AST/SGOT (test code = AST/SGOT) 29 U/L 15-32 Alanine aminotransferase 18 U/L 0-33 [Enzymatic activity/volume] in Serum or Plasma (test code = 1742-6) Alkaline phosphatase [Enzymatic 103 U/L 35-105 activity/volume] in Serum or Plasma (test code = 6768-6) [facility] Hospitalmflu [id number] 09:10:00ResultsSouth Sunflower County HospitalLactate [Mass/volume] in Serum or [id number] 01:17:00 Test Item Value Reference Range Interpretation Comments lactic acid (test code = lactic 1.08 mmol/L 0.5-2.2 acid) [facility] HospitalMethicillin resistant Staphylococcus aureus [Presence] in Unspecified specimen by Organism specific [id number] 07:37:00Results [facility] HospitalUrinalysis complete W Reflex Culture panel - Urine 2019-02-13 10:25:00 Test Item Value Reference Range Interpretation Comments Color of Urine by Auto (test light yellow code = 59332-2) Appearance of Urine (test code clear clear = 5767-9) Glucose [Presence] in Urine by negative negative Automated test strip (test code = 27661-7) Bilirubin.total [Mass/volume] negative negative in Urine (test code = 1978-6) Ketones [Mass/volume] in Urine negative negative by Automated test strip (test code = 26945-7) Specific gravity of Urine by 1.009 1.003-1.030 Automated test strip (test code = 90169-1) blood urine (test code = blood negative negative urine) pH of Urine (test code = 5.500 5-9 2756-5) protein urine (UA) (test code = negative negative protein urine (UA)) Urobilinogen [Presence] in normal 0.2-1.0 Urine (test code = 49754-8) Nitrite [Presence] in Urine by negative negative Test strip (test code = 5802-4) Leukocyte esterase [Presence] negative negative in Urine by Automated test strip (test code = 19805-7) Erythrocytes [#/volume] in <1 0-5 Urine by Automated count (test code = 798-9) Leukocytes [#/area] in Urine =1-5 0-5 sediment by Automated count (test code = 15940-4) Epithelial cells [Presence] in <1 0-5 Urine sediment by Light microscopy (test code = 78383-2) Bacteria identified in Urine by none detected none detect Culture (test code = 630-4) Casts [#/area] in Urine =2-5 none detect sediment by Automated count (test code = 93141-6) urine culture added? (test code no = urine culture added?) [facility] [id number] 10:25:00 Test Item Value Reference Range Interpretation Comments Bacteria identified in no growth at 48 hrs. Urine by Culture (test code = 630-4) [facility] - Urine 2019-02-13 10:25:00 Test Item Value Reference Range Interpretation Comments Color of Urine by Auto (test light yellow code = 44150-2) Appearance of Urine (test code clear clear = 5767-9) Glucose [Presence] in Urine by negative negative Automated test strip (test code = 16358-7) Bilirubin.total [Mass/volume] negative negative in Urine (test code = 1978-6) Ketones [Mass/volume] in Urine negative negative by Automated test strip (test code = 62980-6) Specific gravity of Urine by 1.009 1.003-1.030 Automated test strip (test code = 07321-3) blood urine (test code = blood negative negative urine) pH of Urine (test code = 5.500 5-9 2756-5) protein urine (UA) (test code = negative negative protein urine (UA)) Urobilinogen [Presence] in normal 0.2-1.0 Urine (test code = 60798-6) Nitrite [Presence] in Urine by negative negative Test strip (test code = 5802-4) Leukocyte esterase [Presence] negative negative in Urine by Automated test strip (test code = 11176-2) Erythrocytes [#/volume] in <1 0-5 Urine by Automated count (test code = 798-9) Leukocytes [#/area] in Urine =1-5 0-5 sediment by Automated count (test code = 46088-8) Epithelial cells [Presence] in <1 0-5 Urine sediment by Light microscopy (test code = 35638-1) Bacteria identified in Urine by none detected none detect Culture (test code = 630-4) Casts [#/area] in Urine =2-5 none detect sediment by Automated count (test code = 63056-8) urine culture added? (test code no = urine culture added?) [facility] by [id number] 10:25:00 Test Item Value Reference Range Interpretation Comments Bacteria identified in no growth at 48 hrs. Urine by Culture (test code = 630-4) [facility] - Urine 2019-02-03 11:49:00 Test Item Value Reference Range Interpretation Comments Color of Urine by Auto (test code yellow = 31073-3) Appearance of Urine (test code = clear clear 5767-9) Glucose [Mass/volume] in Urine negative negative (test code = 2350-7) bilirubin, urine (test code = negative negative bilirubin, urine) ketone, urine (test code = negative negative ketone, urine) Specific gravity of Urine by 1.010 1.003-1.030 Automated test strip (test code = 43825-8) Hemoglobin [Presence] in Urine by negative negative Test strip (test code = 5794-3) pH of Urine (test code = 2756-5) 5.500 5-9 protein urine (UA) (test code = negative negative protein urine (UA)) Urobilinogen [Presence] in Urine 0.2 E.U./dL 0.2-1.0 (test code = 10114-9) Nitrite [Presence] in Urine by negative negative Test strip (test code = 5802-4) urine leukocyte esterase (test =1 negative H code = urine leukocyte esterase) Erythrocytes [Presence] in Urine none seen 0-5 (test code = 74954-4) WBC, urine (test code = WBC, =10-14 0-5 H urine) Epithelial cells [Presence] in =6-10 0-5 Urine sediment by Light microscopy (test code = 35904-5) bacteria, urine (test code = trace none detect bacteria, urine) urine culture added? (test code = yes urine culture added?) [facility] - Urine 2019-02-03 11:49:00 Test Item Value Reference Range Interpretation Comments Color of Urine by Auto (test code yellow = 43055-8) Appearance of Urine (test code = clear clear 5767-9) Glucose [Mass/volume] in Urine negative negative (test code = 2350-7) bilirubin, urine (test code = negative negative bilirubin, urine) ketone, urine (test code = negative negative ketone, urine) Specific gravity of Urine by 1.010 1.003-1.030 Automated test strip (test code = 44121-8) Hemoglobin [Presence] in Urine by negative negative Test strip (test code = 5794-3) pH of Urine (test code = 2756-5) 5.500 5-9 protein urine (UA) (test code = negative negative protein urine (UA)) Urobilinogen [Presence] in Urine 0.2 E.U./dL 0.2-1.0 (test code = 33145-1) Nitrite [Presence] in Urine by negative negative Test strip (test code = 5802-4) urine leukocyte esterase (test =1 negative H code = urine leukocyte esterase) Erythrocytes [Presence] in Urine none seen 0-5 (test code = 35317-7) WBC, urine (test code = WBC, =10-14 0-5 H urine) Epithelial cells [Presence] in =6-10 0-5 Urine sediment by Light microscopy (test code = 71682-7) bacteria, urine (test code = trace none detect bacteria, urine) urine culture added? (test code = yes urine culture added?) [facility] by [id number] 11:49:00 Test Item Value Reference Range Interpretation Comments Bacteria identified in no growth at 48 hrs. Urine by Culture (test code = 630-4) [facility] - Urine 2019-02-03 11:49:00 Test Item Value Reference Range Interpretation Comments Color of Urine by Auto (test code yellow = 65407-3) Appearance of Urine (test code = clear clear 5767-9) Glucose [Mass/volume] in Urine negative negative (test code = 2350-7) bilirubin, urine (test code = negative negative bilirubin, urine) ketone, urine (test code = negative negative ketone, urine) Specific gravity of Urine by 1.010 1.003-1.030 Automated test strip (test code = 44830-8) Hemoglobin [Presence] in Urine by negative negative Test strip (test code = 5794-3) pH of Urine (test code = 2756-5) 5.500 5-9 protein urine (UA) (test code = negative negative protein urine (UA)) Urobilinogen [Presence] in Urine 0.2 E.U./dL 0.2-1.0 (test code = 62949-6) Nitrite [Presence] in Urine by negative negative Test strip (test code = 5802-4) urine leukocyte esterase (test =1 negative H code = urine leukocyte esterase) Erythrocytes [Presence] in Urine none seen 0-5 (test code = 95185-0) WBC, urine (test code = WBC, =10-14 0-5 H urine) Epithelial cells [Presence] in =6-10 0-5 Urine sediment by Light microscopy (test code = 10106-3) bacteria, urine (test code = trace none detect bacteria, urine) urine culture added? (test code = yes urine culture added?) [facility] U[facility] by [id number] 11:49:00 Test Item Value Reference Range Interpretation Comments Bacteria identified in no growth at 48 hrs. Urine by Culture (test code = 630-4) [facility]Methicillin resistant Staphylococcus aureus [Presence] in Unspecified specimen by Organism specific [id number] 02:06:00Results [facility]Methicillin resistant Staphylococcus aureus [Presence] in Unspecified specimen by Organism specific [id number] 02:06:00Results [facility] Differential panel - [id number] 10:29:00 Test Item Value Reference Range Interpretation Comments white blood count (test code = 12.4 K/uL 4.0-11.5 H white blood count) red blood count (test code = red 3.74 M/uL 3.80-5.20 L blood count) Hemoglobin [Mass/volume] in Blood 12.9 g/dL 10.5-15.7 (test code = 718-7) hematocrit (test code = hematocrit) 40.3 % 34.0-50.0 Erythrocyte mean corpuscular volume 108.0 fL 78-98 H [Entitic volume] (test code = 73613-9) Erythrocyte mean corpuscular 34.4 pg 26.2-33.4 H hemoglobin [Entitic mass] (test code = 78720-2) mean corpuscular HGB conc (test 32.0 g/dL 31.5-36.2 code = mean corpuscular HGB conc) red cell distribution width (test 12.5 % 11.5-15.5 code = red cell distribution width) Platelets [#/volume] in Blood (test 238 K/uL 137-338 code = 24187-1) Platelet mean volume [Entitic 5.8 fL 8.4-11.8 L volume] in Blood (test code = 20357-1) Neutrophils.band form/100 80.7 % 44.4-80.1 H leukocytes in Blood (test code = 59103-4) Lymphocytes/100 leukocytes in Body 11.2 % 10.0-50.0 fluid (test code = 90541-5) Monocytes/100 leukocytes in Blood 7.2 % 3.6-12.04 by Automated count (test code = 5905-5) Eosinophils/100 leukocytes in Blood 0.2 % 0.0-5.41 by Automated count (test code = 713-8) Basophils/100 leukocytes in Blood 0.7 % 0.0-0.79 by Automated count (test code = 706-2) [facility], [id number] 10:29:00 NeutrophilsBandLymphocyteMonocyteEosinophilBasophilNucleated Red Blood CellPlatelet EstimatePlateletMorphologyPoikilocytosisSouth [facility] Comprehensive metabolic 2000 panel - Serum or [id number] 10:29:00 Test Item Value Reference Range Interpretation Comments Glucose [Mass/volume] in Serum or 120 mg/dL 82-115 H Plasma (test code = 2345-7) Urea nitrogen [Mass/volume] in 40 mg/dL 8-23 H Serum or Plasma (test code = 3094-0) Osmolality of Serum or Plasma 287 280-300 (test code = 2692-2) creatinine (test code = 1.1 mg/dL 0.50-0.90 H creatinine) glomerular filtration rate (test 47.91 L code = glomerular filtration rate) Urea nitrogen/Creatinine [Mass 36.4 12-20 H Ratio] in Serum or Plasma (test code = 3097-3) sodium level (test code = sodium 138 mmol/L 135-145 level) potassium level (test code = 4.1 mmol/L 3.5-5.2 potassium level) chloride level (test code = 100 mmol/L 98-108 chloride level) CO2 (test code = CO2) 23 mmol/L 21-32 anion gap (test code = anion gap) 19.1 mEq/L 12-20 calcium level (test code = calcium 9.8 mg/dL 8.8-10.2 level) total protein (test code = total 7.6 g/dL 6.6-8.7 protein) albumin (test code = albumin) 4.0 g/dL 3.5-5.2 globulin (test code = globulin) 3.6 gm/dL A/G ratio (test code = A/G ratio) 1.1 >1.0 bilirubin,total (test code = 0.5 mg/dL 0.0-1.2 bilirubin,total) AST/SGOT (test code = AST/SGOT) 32 U/L 15-32 Alanine aminotransferase 24 U/L 0-33 [Enzymatic activity/volume] in Serum or Plasma (test code = 1742-6) Alkaline phosphatase [Enzymatic 95 U/L 35-105 activity/volume] in Serum or Plasma (test code = 6768-6) [facility]Creat[facility] kinase [Enzymatic activity/volume] in Serum or [id number] 10:29:00 Test Item Value Reference Range Interpretation Comments creatine kinase (test code = creatine 52 U/L 20-180 kinase) [facility]PT/[id number] 10:29:00 Test Item Value Reference Range Interpretation Comments prothrombin time (test code = 11.4 seconds 10.3-12.3 prothrombin time) INR in Blood by Coagulation 1.04 assay (test code = 37481-0) [facility]partial thromboplastin [id number] 10:29:00 Test Item Value Reference Range Interpretation Comments INR in Blood by Coagulation 31.7 seconds 22.5-37.0 assay (test code = 29894-9) [facility] HospitalNatriuretic peptide.B prohormone N-Terminal [Mass/volume] in Serum or [id number] 10:29:00 Test Item Value Reference Range Interpretation Comments N-term pro natriuretic peptide 933 pg/mL 0-450 H (test code = N-term pro natriuretic peptide) [facility] HospitalTroponin I.cardiac [Mass/volume] in [id number] 10:29:00 Test Item Value Reference Range Interpretation Comments cardiac troponin I (test code = cardiac <0.30 0.0-0.5 troponin I) [facility] HospitalCreatine kinase.MB [Mass/volume] in Serum or Plasma 2019-01-15 10:29:00 Test Item Value Reference Range Interpretation Comments mass creatinine kinase-mb (test 1.8 NG/mL 0.0-3.6 code = mass creatinine kinase-mb) [facility] W Auto Differential panel - [id number] 10:29:00 Test Item Value Reference Range Interpretation Comments white blood count (test code = 12.4 K/uL 4.0-11.5 H white blood count) red blood count (test code = red 3.74 M/uL 3.80-5.20 L blood count) Hemoglobin [Mass/volume] in Blood 12.9 g/dL 10.5-15.7 (test code = 718-7) hematocrit (test code = hematocrit) 40.3 % 34.0-50.0 Erythrocyte mean corpuscular volume 108.0 fL 78-98 H [Entitic volume] (test code = 71889-9) Erythrocyte mean corpuscular 34.4 pg 26.2-33.4 H hemoglobin [Entitic mass] (test code = 81965-0) mean corpuscular HGB conc (test 32.0 g/dL 31.5-36.2 code = mean corpuscular HGB conc) red cell distribution width (test 12.5 % 11.5-15.5 code = red cell distribution width) Platelets [#/volume] in Blood (test 238 K/uL 137-338 code = 18589-2) Platelet mean volume [Entitic 5.8 fL 8.4-11.8 L volume] in Blood (test code = 26958-7) Neutrophils.band form/100 80.7 % 44.4-80.1 H leukocytes in Blood (test code = 36915-8) Lymphocytes/100 leukocytes in Body 11.2 % 10.0-50.0 fluid (test code = 70637-2) Monocytes/100 leukocytes in Blood 7.2 % 3.6-12.04 by Automated count (test code = 5905-5) Eosinophils/100 leukocytes in Blood 0.2 % 0.0-5.41 by Automated count (test code = 713-8) Basophils/100 leukocytes in Blood 0.7 % 0.0-0.79 by Automated count (test code = 706-2) [facility], [id number] 10:29:00 NeutrophilsBandLymphocyteMonocyteEosinophilBasophilNucleated Red Blood CellPlatelet EstimatePlateletMorphologyPoikilocytosisSouth [facility] Comprehensive metabolic 2000 panel - Serum or [id number] 10:29:00 Test Item Value Reference Range Interpretation Comments Glucose [Mass/volume] in Serum or 120 mg/dL 82-115 H Plasma (test code = 2345-7) Urea nitrogen [Mass/volume] in 40 mg/dL 8-23 H Serum or Plasma (test code = 3094-0) Osmolality of Serum or Plasma 287 280-300 (test code = 2692-2) creatinine (test code = 1.1 mg/dL 0.50-0.90 H creatinine) glomerular filtration rate (test 47.91 L code = glomerular filtration rate) Urea nitrogen/Creatinine [Mass 36.4 12-20 H Ratio] in Serum or Plasma (test code = 3097-3) sodium level (test code = sodium 138 mmol/L 135-145 level) potassium level (test code = 4.1 mmol/L 3.5-5.2 potassium level) chloride level (test code = 100 mmol/L 98-108 chloride level) CO2 (test code = CO2) 23 mmol/L 21-32 anion gap (test code = anion gap) 19.1 mEq/L 12-20 calcium level (test code = calcium 9.8 mg/dL 8.8-10.2 level) total protein (test code = total 7.6 g/dL 6.6-8.7 protein) albumin (test code = albumin) 4.0 g/dL 3.5-5.2 globulin (test code = globulin) 3.6 gm/dL A/G ratio (test code = A/G ratio) 1.1 >1.0 bilirubin,total (test code = 0.5 mg/dL 0.0-1.2 bilirubin,total) AST/SGOT (test code = AST/SGOT) 32 U/L 15-32 Alanine aminotransferase 24 U/L 0-33 [Enzymatic activity/volume] in Serum or Plasma (test code = 1742-6) Alkaline phosphatase [Enzymatic 95 U/L 35-105 activity/volume] in Serum or Plasma (test code = 6768-6) [facility]Creat[facility] kinase [Enzymatic activity/volume] in Serum or [id number] 10:29:00 Test Item Value Reference Range Interpretation Comments creatine kinase (test code = creatine 52 U/L 20-180 kinase) [facility]PT/[id number] 10:29:00 Test Item Value Reference Range Interpretation Comments prothrombin time (test code = 11.4 seconds 10.3-12.3 prothrombin time) INR in Blood by Coagulation 1.04 assay (test code = 94715-0) [facility]partial [facility]in [id number] 10:29:00 Test Item Value Reference Range Interpretation Comments INR in Blood by Coagulation 31.7 seconds 22.5-37.0 assay (test code = 86532-7) [facility] HospitalNatriuretic peptide.B prohormone N-Terminal [Mass/volume] in Serum or [id number] 10:29:00 Test Item Value Reference Range Interpretation Comments N-term pro natriuretic peptide 933 pg/mL 0-450 H (test code = N-term pro natriuretic peptide) [facility] HospitalTroponin I.cardiac [Mass/volume] in [id number] 10:29:00 Test Item Value Reference Range Interpretation Comments cardiac troponin I (test code = cardiac <0.30 0.0-0.5 troponin I) [facility]Creatine kinase.MB [Mass/volume] in Serum or Plasma 2019-01-15 10:29:00 Test Item Value Reference Range Interpretation Comments mass creatinine kinase-mb (test 1.8 NG/mL 0.0-3.6 code = mass creatinine kinase-mb) [facility] Culture panel - Urine 2019-01-13 11:29:00 Test Item Value Reference Range Interpretation Comments Color of Urine by Auto yellow (test code = 73297-7) Appearance of Urine (test clear clear code = 5767-9) Glucose [Mass/volume] in negative negative Urine (test code = 2350-7) bilirubin, urine (test negative negative code = bilirubin, urine) ketone, urine (test code = negative negative ketone, urine) Specific gravity of Urine 1.010 1.003-1.030 by Automated test strip (test code = 34797-2) Hemoglobin [Presence] in negative negative Urine by Test strip (test code = 5794-3) pH of Urine (test code = 5.000 5-9 2756-5) protein urine (UA) (test negative negative code = protein urine (UA)) Urobilinogen [Presence] in 0.2 E.U./dL 0.2-1.0 Urine (test code = 95312-1) Nitrite [Presence] in negative negative Urine by Test strip (test code = 5802-4) urine leukocyte esterase trace negative H (test code = urine leukocyte esterase) Erythrocytes [Presence] in none seen 0-5 Urine (test code = 61034-2) WBC, urine (test code = =0-2 0-5 WBC, urine) Epithelial cells occassional 0-5 [Presence] in Urine sediment by Light microscopy (test code = 69990-0) bacteria, urine (test code none detected none detect = bacteria, urine) Casts [#/area] in Urine hyaline casts 6-10 none detect sediment by Automated count (test code = 63730-7) urine culture added? (test no code = urine culture added?) [facility] GroupUr[facility] Culture [facility] - Urine 2019-01-13 11:29:00 Test Item Value Reference Range Interpretation Comments Color of Urine by Auto yellow (test code = 26785-1) Appearance of Urine (test clear clear code = 5767-9) Glucose [Mass/volume] in negative negative Urine (test code = 2350-7) bilirubin, urine (test negative negative code = bilirubin, urine) ketone, urine (test code = negative negative ketone, urine) Specific gravity of Urine 1.010 1.003-1.030 by Automated test strip (test code = 16712-9) Hemoglobin [Presence] in negative negative Urine by Test strip (test code = 5794-3) pH of Urine (test code = 5.000 5-9 2756-5) protein urine (UA) (test negative negative code = protein urine (UA)) Urobilinogen [Presence] in 0.2 E.U./dL 0.2-1.0 Urine (test code = 31778-0) Nitrite [Presence] in negative negative Urine by Test strip (test code = 5802-4) urine leukocyte esterase trace negative H (test code = urine leukocyte esterase) Erythrocytes [Presence] in none seen 0-5 Urine (test code = 78254-4) WBC, urine (test code = =0-2 0-5 WBC, urine) Epithelial cells occassional 0-5 [Presence] in Urine sediment by Light microscopy (test code = 39885-3) bacteria, urine (test code none detected none detect = bacteria, urine) Casts [#/area] in Urine hyaline casts 6-10 none detect sediment by Automated count (test code = 24252-0) urine culture added? (test no code = urine culture added?) [facility] W Auto Differential panel - [id number] 08:46:00 Test Item Value Reference Range Interpretation Comments white blood count (test code = 6.3 K/uL 4.0-11.5 white blood count) red blood count (test code = red 3.57 M/uL 3.80-5.20 L blood count) Hemoglobin [Mass/volume] in Blood 12.0 g/dL 10.5-15.7 (test code = 718-7) hematocrit (test code = hematocrit) 37.5 % 34.0-50.0 Erythrocyte mean corpuscular volume 105.0 fL 78-98 H [Entitic volume] (test code = 94498-1) Erythrocyte mean corpuscular 33.7 pg 26.2-33.4 H hemoglobin [Entitic mass] (test code = 74457-4) mean corpuscular HGB conc (test 32.1 g/dL 31.5-36.2 code = mean corpuscular HGB conc) red cell distribution width (test 12.3 % 11.5-15.5 code = red cell distribution width) Platelets [#/volume] in Blood (test 293 K/uL 137-338 code = 19879-2) Platelet mean volume [Entitic 5.6 fL 8.4-11.8 L volume] in Blood (test code = 28490-4) Neutrophils.band form/100 43.4 % 44.4-80.1 L leukocytes in Blood (test code = 74908-4) Lymphocytes/100 leukocytes in Body 42.6 % 10.0-50.0 fluid (test code = 08336-2) Monocytes/100 leukocytes in Blood 9.1 % 3.6-12.04 by Automated count (test code = 5905-5) Eosinophils/100 leukocytes in Blood 3.2 % 0.0-5.41 by Automated count (test code = 713-8) Basophils/100 leukocytes in Blood 1.8 % 0.0-0.79 H by Automated count (test code = 706-2) [facility], [id number] 08:46:00 NeutrophilsBandLymphocyteMonocyteEosinophilBasophilPlatelet EstimateMataAnderson Regional Medical CenterUrinalysis macro (dipstick) panel - [id number] 08:46:00 Test Item Value Reference Range Interpretation Comments Color of Urine by Auto (test code = yellow 79970-2) Appearance of Urine (test code = cloudy clear A 5767-9) Glucose [Presence] in Urine by negative negative Automated test strip (test code = 40290-1) Bilirubin.total [Mass/volume] in negative negative Urine (test code = 1978-6) Ketones [Mass/volume] in Urine by negative negative Automated test strip (test code = 16625-1) Specific gravity of Urine by 1.018 1.003-1.030 Automated test strip (test code = 29350-8) blood urine (test code = blood trace negative urine) pH of Urine (test code = 2756-5) 5.500 5-9 protein urine (UA) (test code = trace negative protein urine (UA)) Urobilinogen [Presence] in Urine normal 0.2-1.0 (test code = 20689-7) Nitrite [Presence] in Urine by Test positive negative H strip (test code = 5802-4) Leukocyte esterase [Presence] in =4 negative H Urine by Automated test strip (test code = 36150-8) Erythrocytes [#/volume] in Urine by =6-10 0-5 H Automated count (test code = 798-9) Leukocytes [#/area] in Urine >50 0-5 H sediment by Automated count (test code = 14451-7) Epithelial cells [Presence] in Urine =1-5 0-5 sediment by Light microscopy (test code = 17413-3) Bacteria identified in Urine by tntc (4 none detect H Culture (test code = 630-4) Casts [#/area] in Urine sediment by =2-5 none detect Automated count (test code = 46377-8) urine culture added? (test code = yes urine culture added?) [facility]Hem[facility] A1c [Mass/volume] in [id number] 08:46:00 Test Item Value Reference Range Interpretation Comments Hemoglobin A1c in Blood (test code = 5.1 % 4.0-6.0 43087-7) [facility]Com[facility] 2000 [facility] - Serum or Plasma 2018-12-30 08:46:00 Test Item Value Reference Range Interpretation Comments glucose (test code = glucose) 88 mg/dL 82-115 Urea nitrogen [Mass/volume] in 36 mg/dL 8-23 Serum or Plasma (test code = 3094-0) Osmolality of Serum or Plasma 287 280-300 (test code = 2692-2) creatinine (test code = 1.1 mg/dL 0.50-0.90 H creatinine) glomerular filtration rate (test 47.91 L code = glomerular filtration rate) Urea nitrogen/Creatinine [Mass 32.7 12-20 H Ratio] in Serum or Plasma (test code = 3097-3) sodium level (test code = sodium 140 mmol/L 135-145 level) Potassium [Moles/volume] in Body 4.5 mmol/L 3.5-5.2 fluid (test code = 2821-7) chloride level (test code = 106 mmol/L 98-108 chloride level) CO2 (test code = CO2) 23 mmol/L 21-32 anion gap (test code = anion gap) 15.5 mEq/L 12-20 calcium level (test code = calcium 10.0 mg/dL 8.8-10.2 level) total protein (test code = total 7.4 g/dL 6.6-8.7 protein) albumin (test code = albumin) 4.0 g/dL 3.5-5.2 globulin (test code = globulin) 3.4 gm/dL A/G ratio (test code = A/G ratio) 1.2 >1.0 bilirubin,total (test code = 0.3 mg/dL 0.0-1.2 bilirubin,total) AST/SGOT (test code = AST/SGOT) 24 U/L 15-32 Alanine aminotransferase 16 U/L 0-33 [Enzymatic activity/volume] in Serum or Plasma (test code = 1742-6) Alkaline phosphatase [Enzymatic 92 U/L 35-105 activity/volume] in Serum or Plasma (test code = 6768-6) [facility] - [facility] or [id number] 08:46:00 Test Item Value Reference Range Interpretation Comments cholesterol level (test code = 139 mg/dL 150-200 L cholesterol level) triglycerides level (test code = 138 mg/dL <150 triglycerides level) HDL cholesterol (test code = HDL 74 mg/dL >65 cholesterol) LDL cholesterol direct (test code = 51 mg/dL <100 LDL cholesterol direct) cholesterol risk ratio (test code = 1.878 cholesterol risk ratio) [facility]Un[facility]] in Serum or [id number] 08:46:00 Test Item Value Reference Range Interpretation Comments Thyrotropin [Units/volume] in 0.15 uIU/mL 0.36-3.74 L Serum or Plasma (test code = 3016-3) [facility] W Auto Differential panel - [id number] 08:46:00 Test Item Value Reference Range Interpretation Comments white blood count (test code = 6.3 K/uL 4.0-11.5 white blood count) red blood count (test code = red 3.57 M/uL 3.80-5.20 L blood count) Hemoglobin [Mass/volume] in Blood 12.0 g/dL 10.5-15.7 (test code = 718-7) hematocrit (test code = hematocrit) 37.5 % 34.0-50.0 Erythrocyte mean corpuscular volume 105.0 fL 78-98 H [Entitic volume] (test code = 29951-0) Erythrocyte mean corpuscular 33.7 pg 26.2-33.4 H hemoglobin [Entitic mass] (test code = 39804-7) mean corpuscular HGB conc (test 32.1 g/dL 31.5-36.2 code = mean corpuscular HGB conc) red cell distribution width (test 12.3 % 11.5-15.5 code = red cell distribution width) Platelets [#/volume] in Blood (test 293 K/uL 137-338 code = 55946-7) Platelet mean volume [Entitic 5.6 fL 8.4-11.8 L volume] in Blood (test code = 73842-5) Neutrophils.band form/100 43.4 % 44.4-80.1 L leukocytes in Blood (test code = 19473-0) Lymphocytes/100 leukocytes in Body 42.6 % 10.0-50.0 fluid (test code = 75329-5) Monocytes/100 leukocytes in Blood 9.1 % 3.6-12.04 by Automated count (test code = 5905-5) Eosinophils/100 leukocytes in Blood 3.2 % 0.0-5.41 by Automated count (test code = 713-8) Basophils/100 leukocytes in Blood 1.8 % 0.0-0.79 H by Automated count (test code = 706-2) [facility], [id number] 08:46:00 NeutrophilsBandLymphocyteMonocyteEosinophilBasophilPlatelet EstimateMataAnderson Regional Medical CenterUrinalysis macro (dipstick) panel - [id number] 08:46:00 Test Item Value Reference Range Interpretation Comments Color of Urine by Auto (test code = yellow 98947-8) Appearance of Urine (test code = cloudy clear A 5767-9) Glucose [Presence] in Urine by negative negative Automated test strip (test code = 14894-5) Bilirubin.total [Mass/volume] in negative negative Urine (test code = 1978-6) Ketones [Mass/volume] in Urine by negative negative Automated test strip (test code = 87323-7) Specific gravity of Urine by 1.018 1.003-1.030 Automated test strip (test code = 56148-7) blood urine (test code = blood trace negative urine) pH of Urine (test code = 2756-5) 5.500 5-9 protein urine (UA) (test code = trace negative protein urine (UA)) Urobilinogen [Presence] in Urine normal 0.2-1.0 (test code = 33464-8) Nitrite [Presence] in Urine by Test positive negative H strip (test code = 5802-4) Leukocyte esterase [Presence] in =4 negative H Urine by Automated test strip (test code = 87752-9) Erythrocytes [#/volume] in Urine by =6-10 0-5 H Automated count (test code = 798-9) Leukocytes [#/area] in Urine >50 0-5 H sediment by Automated count (test code = 69166-3) Epithelial cells [Presence] in Urine =1-5 0-5 sediment by Light microscopy (test code = 96251-6) Bacteria identified in Urine by tntc (4 none detect H Culture (test code = 630-4) Casts [#/area] in Urine sediment by =2-5 none detect Automated count (test code = 35298-8) urine culture added? (test code = yes urine culture added?) [facility] HospitalHemoglobin A1c [Mass/volume] in [id number] 08:46:00 Test Item Value Reference Range Interpretation Comments Hemoglobin A1c in Blood (test code = 5.1 % 4.0-6.0 97544-0) [facility]Com[facility] 2000 [facility] - Serum or Plasma 2018-12-30 08:46:00 Test Item Value Reference Range Interpretation Comments glucose (test code = glucose) 88 mg/dL 82-115 Urea nitrogen [Mass/volume] in 36 mg/dL 8-23 Serum or Plasma (test code = 3094-0) Osmolality of Serum or Plasma 287 280-300 (test code = 2692-2) creatinine (test code = 1.1 mg/dL 0.50-0.90 H creatinine) glomerular filtration rate (test 47.91 L code = glomerular filtration rate) Urea nitrogen/Creatinine [Mass 32.7 12-20 H Ratio] in Serum or Plasma (test code = 3097-3) sodium level (test code = sodium 140 mmol/L 135-145 level) Potassium [Moles/volume] in Body 4.5 mmol/L 3.5-5.2 fluid (test code = 2821-7) chloride level (test code = 106 mmol/L 98-108 chloride level) CO2 (test code = CO2) 23 mmol/L 21-32 anion gap (test code = anion gap) 15.5 mEq/L 12-20 calcium level (test code = calcium 10.0 mg/dL 8.8-10.2 level) total protein (test code = total 7.4 g/dL 6.6-8.7 protein) albumin (test code = albumin) 4.0 g/dL 3.5-5.2 globulin (test code = globulin) 3.4 gm/dL A/G ratio (test code = A/G ratio) 1.2 >1.0 bilirubin,total (test code = 0.3 mg/dL 0.0-1.2 bilirubin,total) AST/SGOT (test code = AST/SGOT) 24 U/L 15-32 Alanine aminotransferase 16 U/L 0-33 [Enzymatic activity/volume] in Serum or Plasma (test code = 1742-6) Alkaline phosphatase [Enzymatic 92 U/L 35-105 activity/volume] in Serum or Plasma (test code = 6768-6) [facility] - Serum or [id number] 08:46:00 Test Item Value Reference Range Interpretation Comments cholesterol level (test code = 139 mg/dL 150-200 L cholesterol level) triglycerides level (test code = 138 mg/dL <150 triglycerides level) HDL cholesterol (test code = HDL 74 mg/dL >65 cholesterol) LDL cholesterol direct (test code = 51 mg/dL <100 LDL cholesterol direct) cholesterol risk ratio (test code = 1.878 cholesterol risk ratio) [facility]Thyrotropin [Units/volume] in Serum or [id number] 08:46:00 Test Item Value Reference Range Interpretation Comments Thyrotropin [Units/volume] in 0.15 uIU/mL 0.36-3.74 L Serum or Plasma (test code = 3016-3) [facility] HospitalBacteria identified in Urine by [id number] 08:46:00Bacteria Ur CultSouth [facility] Hospitalantibiotic sensitivity testing, [id number] 08:46:00 Test Item Value Reference Range Interpretation Comments Gentamicin [Susceptibility] by Minimum <4 inhibitory concentration (YUNG) (test code = 267-5) Ampicillin [Susceptibility] by Minimum >16 inhibitory concentration (YUNG) (test code = 28-1) Cefazolin [Susceptibility] by Minimum <8 inhibitory concentration (YUNG) (test code = 76-0) Trimethoprim+Sulfamethoxazole =2/38 [Susceptibility] by Minimum inhibitory concentration (YUNG) (test code = 516-5) Tetracycline [Susceptibility] by <4 Minimum inhibitory concentration (YUNG) (test code = 496-0) Amoxicillin+Clavulanate =8/4 [Susceptibility] by Minimum inhibitory concentration (YUNG) (test code = 20-8) Tobramycin [Susceptibility] by Minimum <4 inhibitory concentration (YUNG) (test code = 508-2) Nitrofurantoin [Susceptibility] by <32 Minimum inhibitory concentration (YUNG) (test code = 363-2) Cefotaxime [Susceptibility] by Minimum <2 inhibitory concentration (YUNG) (test code = 108-1) Cefepime [Susceptibility] by Minimum <8 inhibitory concentration (YUNG) (test code = 6644-9) Levofloxacin [Susceptibility] by <2 Minimum inhibitory concentration (YUNG) (test code = 57821-4) Piperacillin+Tazobactam <16 [Susceptibility] by Minimum inhibitory concentration (YUNG) (test code = 412-7) Ceftazidime [Susceptibility] by Minimum <1 inhibitory concentration (YUNG) (test code = 133-9) Ceftriaxone [Susceptibility] by Minimum <8 inhibitory concentration (YUNG) (test code = 141-2) Ciprofloxacin [Susceptibility] by <1 Minimum inhibitory concentration (YUNG) (test code = 185-9) Imipenem [Susceptibility] by Minimum <4 inhibitory concentration (YUNG) (test code = 279-0) Ampicillin+Sulbactam [Susceptibility] =16/8 by Minimum inhibitory concentration (YUNG) (test code = 32-3) Ertapenem [Susceptibility] by Minimum <2 inhibitory concentration (YUNG) (test code = 82496-6) Aztreonam [Susceptibility] by Minimum <8 inhibitory concentration (YUNG) (test code = 44-8) [id number] (test code = [id number]) <4 Meropenem [Susceptibility] by Minimum <4 inhibitory concentration (YUNG) (test code = 6652-2) [facility] HospitalUrinalysis macro (dipstick) panel - [id number] 08:29:00 Test Item Value Reference Range Interpretation Comments Leukocytes (test code = Leukocytes) Trace Nitrite (test code = Nitrite) negative Urobilinogen (test code = .2 Urobilinogen) Protein (test code = Protein) Negative pH (test code = pH) 5.5 Blood (test code = Blood) Negative Specific [place] (test code = 1.020 Specific [place]) Ketone (test code = Ketone) Negative Bilirubin (test code = Bilirubin) Negative Glucose (test code = Glucose) Negative Appearance (test code = Appearance) Clear Color (test code = Color) Yellow [facility]Urinalysis macro (dipstick) panel - [id number] 01:20:00 Test Item Value Reference Range Interpretation Comments Color of Urine by Auto (test yellow code = 70211-3) Appearance of Urine (test code SL cloudy clear A = 5767-9) Glucose [Presence] in Urine by negative negative Automated test strip (test code = 45767-0) Bilirubin.total [Mass/volume] negative negative in Urine (test code = 1978-6) Ketones [Mass/volume] in Urine negative negative by Automated test strip (test code = 49123-5) Specific gravity of Urine by 1.015 1.003-1.030 Automated test strip (test code = 91608-2) blood urine (test code = blood =1 negative H urine) pH of Urine (test code = 5.500 5-9 2756-5) protein urine (UA) (test code = trace negative protein urine (UA)) Urobilinogen [Presence] in normal 0.2-1.0 Urine (test code = 82416-5) Nitrite [Presence] in Urine by negative negative Test strip (test code = 5802-4) Leukocyte esterase [Presence] =4 negative H in Urine by Automated test strip (test code = 33042-1) Erythrocytes [#/volume] in =15-19 0-5 H Urine by Automated count (test code = 798-9) Leukocytes [#/area] in Urine >50 0-5 H sediment by Automated count (test code = 01329-9) Epithelial cells [Presence] in =1-5 0-5 Urine sediment by Light microscopy (test code = 12270-5) Bacteria identified in Urine by tntc (4 none detect H Culture (test code = 630-4) Casts [#/area] in Urine none detected none detect sediment by Automated count (test code = 20904-1) urine culture added? (test code yes = urine culture added?) [facility] identified in Urine by [id number] 01:20:00[facility] Ur [facility], [id number] 01:20:00 Test Item Value Reference Range Interpretation Comments Gentamicin [Susceptibility] by Minimum <4 inhibitory concentration (YUNG) (test code = 267-5) Ampicillin [Susceptibility] by Minimum >16 inhibitory concentration (YUNG) (test code = 28-1) Cefazolin [Susceptibility] by Minimum <8 inhibitory concentration (YUNG) (test code = 76-0) Trimethoprim+Sulfamethoxazole =2/38 [Susceptibility] by Minimum inhibitory concentration (YUNG) (test code = 516-5) Tetracycline [Susceptibility] by <4 Minimum inhibitory concentration (YUNG) (test code = 496-0) Amoxicillin+Clavulanate =8/4 [Susceptibility] by Minimum inhibitory concentration (YUNG) (test code = 20-8) Tobramycin [Susceptibility] by Minimum <4 inhibitory concentration (YUNG) (test code = 508-2) Nitrofurantoin [Susceptibility] by <32 Minimum inhibitory concentration (YUNG) (test code = 363-2) Cefotaxime [Susceptibility] by Minimum <2 inhibitory concentration (YUNG) (test code = 108-1) Cefepime [Susceptibility] by Minimum <8 inhibitory concentration (YUNG) (test code = 6644-9) Levofloxacin [Susceptibility] by <2 Minimum inhibitory concentration (YUNG) (test code = 84770-7) Piperacillin+Tazobactam <16 [Susceptibility] by Minimum inhibitory concentration (YUNG) (test code = 412-7) Ceftazidime [Susceptibility] by Minimum <1 inhibitory concentration (YUNG) (test code = 133-9) Ceftriaxone [Susceptibility] by Minimum <8 inhibitory concentration (YUNG) (test code = 141-2) Ciprofloxacin [Susceptibility] by <1 Minimum inhibitory concentration (YUNG) (test code = 185-9) Imipenem [Susceptibility] by Minimum <4 inhibitory concentration (YUNG) (test code = 279-0) Ampicillin+Sulbactam [Susceptibility] =16/8 by Minimum inhibitory concentration (YUNG) (test code = 32-3) Ertapenem [Susceptibility] by Minimum <2 inhibitory concentration (YUNG) (test code = 66396-9) Aztreonam [Susceptibility] by Minimum <8 inhibitory concentration (YUNG) (test code = 44-8) [id number] (test code = pcx0072) <4 Meropenem [Susceptibility] by Minimum <4 inhibitory concentration (YUNG) (test code = 6652-2) [facility] (dipstick) panel - [id number] 01:20:00 Test Item Value Reference Range Interpretation Comments Color of Urine by Auto (test yellow code = 71038-2) Appearance of Urine (test code SL cloudy clear A = 5767-9) Glucose [Presence] in Urine by negative negative Automated test strip (test code = 13986-0) Bilirubin.total [Mass/volume] negative negative in Urine (test code = 1978-6) Ketones [Mass/volume] in Urine negative negative by Automated test strip (test code = 67993-0) Specific gravity of Urine by 1.015 1.003-1.030 Automated test strip (test code = 48180-4) blood urine (test code = blood =1 negative H urine) pH of Urine (test code = 5.500 5-9 2756-5) protein urine (UA) (test code = trace negative protein urine (UA)) Urobilinogen [Presence] in normal 0.2-1.0 Urine (test code = 56831-8) Nitrite [Presence] in Urine by negative negative Test strip (test code = 5802-4) Leukocyte esterase [Presence] =4 negative H in Urine by Automated test strip (test code = 42812-2) Erythrocytes [#/volume] in =15-19 0-5 H Urine by Automated count (test code = 798-9) Leukocytes [#/area] in Urine >50 0-5 H sediment by Automated count (test code = 21034-2) Epithelial cells [Presence] in =1-5 0-5 Urine sediment by Light microscopy (test code = 11179-3) Bacteria identified in Urine by tntc (4 none detect H Culture (test code = 630-4) Casts [#/area] in Urine none detected none detect sediment by Automated count (test code = 67567-2) urine culture added? (test code yes = urine culture added?) [facility] by [id number] 01:20:00[facility] Ur [facility], [id number] 01:20:00 Test Item Value Reference Range Interpretation Comments Gentamicin [Susceptibility] by Minimum <4 inhibitory concentration (YUNG) (test code = 267-5) Ampicillin [Susceptibility] by Minimum >16 inhibitory concentration (YUNG) (test code = 28-1) Cefazolin [Susceptibility] by Minimum <8 inhibitory concentration (YUNG) (test code = 76-0) Trimethoprim+Sulfamethoxazole =2/38 [Susceptibility] by Minimum inhibitory concentration (YUNG) (test code = 516-5) Tetracycline [Susceptibility] by <4 Minimum inhibitory concentration (YUNG) (test code = 496-0) Amoxicillin+Clavulanate =8/4 [Susceptibility] by Minimum inhibitory concentration (YUNG) (test code = 20-8) Tobramycin [Susceptibility] by Minimum <4 inhibitory concentration (YUNG) (test code = 508-2) Nitrofurantoin [Susceptibility] by <32 Minimum inhibitory concentration (YUNG) (test code = 363-2) Cefotaxime [Susceptibility] by Minimum <2 inhibitory concentration (YUNG) (test code = 108-1) Cefepime [Susceptibility] by Minimum <8 inhibitory concentration (YUNG) (test code = 6644-9) Levofloxacin [Susceptibility] by <2 Minimum inhibitory concentration (YUNG) (test code = 45961-7) Piperacillin+Tazobactam <16 [Susceptibility] by Minimum inhibitory concentration (YUNG) (test code = 412-7) Ceftazidime [Susceptibility] by Minimum <1 inhibitory concentration (YUNG) (test code = 133-9) Ceftriaxone [Susceptibility] by Minimum <8 inhibitory concentration (YUNG) (test code = 141-2) Ciprofloxacin [Susceptibility] by <1 Minimum inhibitory concentration (YUNG) (test code = 185-9) Imipenem [Susceptibility] by Minimum <4 inhibitory concentration (YUNG) (test code = 279-0) Ampicillin+Sulbactam [Susceptibility] =16/8 by Minimum inhibitory concentration (YUNG) (test code = 32-3) Ertapenem [Susceptibility] by Minimum <2 inhibitory concentration (YUNG) (test code = 67244-1) Aztreonam [Susceptibility] by Minimum <8 inhibitory concentration (YUNG) (test code = 44-8) [id number] (test code = [id number]) <4 Meropenem [Susceptibility] by Minimum <4 inhibitory concentration (YUNG) (test code = 6652-2) [facility]
[2021-07-25 06:27] LABS: Absolute Lymphocytes (CBC) 1.4 K/uL (0.7-4.9); Basophils % 1.2 % (0-1.3); Hematocrit 31.2 % (36.0-45.0); Lymphocytes % 23.4 % (15.3-44.8); MPV 7.2 fL (7.6-11.3); RBC Red Blood Cell Count 2.98 M/uL (3.86-4.86)
[2021-07-25 06:38] LABS: ALT/SGPT 47 U/L (12-78); AST/SGOT 31 U/L (15-37); Alkaline Phosphatase 71 U/L (45-117); BUN Blood Urea Nitrogen 45 mg/dL (7-18); Bicarbonate 27 mmol/L (21-32); Bilirubin Direct < 0.1 mg/dL (0-0.2); Bilirubin Total 0.3 mg/dL (0.2-1.0); Glucose Level 80 mg/dL (74-106); Lipase 160 U/L (73-393); Potassium 4.5 mmol/L (3.5-5.1); Protein, Total 6.7 g/dL (6.4-8.2); Sodium Level 139 mmol/L (136-145)
--- NOTE | 2021-07-25 08:33 | RAD REPORT ---
EXAM DESCRIPTION: CTAbdomen Pelvis W Contrast - 07/25/2021 8:18 am CLINICAL HISTORY: Abdominal pain. ABD PAIN COMPARISON: No comparisons TECHNIQUE: Biphasic CT imaging of the abdomen and pelvis was performed with 100 ml non-ionic IV cont rast. All CT scans are performed using dose optimization technique as appropriate and may include automated exposure control or mA/KV adjustment according to patient size. FINDINGS: Mild emphysema seen in both lung bases. No solid liver mass is present. Cholecystectomy clips are seen. The spleen, pancreas, adrenal glands and kidneys are within normal limits. No bowel obstruction, free air, free fluid or abscess. Moderate stool is seen retained in the colon. The appendix is not identified as a discrete structure, however, no secondary findings of appendiciti s are identified. Aortoiliac atherosclerosis. No evidence of significant lymphadenopathy. Hardware is present in the thoracolumbar spine as well as both hips. IMPRESSION: Prominent fecal retention is noted. Emphysematous lung bases.
[2021-07-25] MEDS ORDERED: NA CHLORIDE 0.9% 500 ML ONE (08:38)
[2021-07-25 08:49] LABS: Urine Bacteria <20 /HPF (<20)
[2021-07-25 08:50] LABS: Urine Mucus 1+ /HPF (NONE SEEN)
--- NOTE | 2021-07-25 09:20 | EDPHYS ---
Physician Documentation [facility] Name: Zunilda España Age: 80 yrs Sex: Female : 1940 Arrival Date: 07/25/2021 Time: 05:41 Bed 19 Private MD: ED Physician Rell Zuñiga HPI: 07/25 08:05 This 80 yrs old Unknown Female presents to ER via Wheelchair with complaints of jr8 Abdominal Pain. 08:05 The patient presents with abdominal pain. Onset: The symptoms/episode began/occurred jr8 acutely, last night. The symptoms do not radiate. Associated signs and symptoms: Pertinent positives: nausea. The symptoms are described as shooting. Modifying factors: The symptoms are alleviated by nothing, the symptoms are aggravated by nothing. Severity of pain: At its worst the pain was moderate in the emergency department the pain is unchanged. The patient has not experienced similar symptoms in the past. The patient has not recently seen a physician. This is a 80-year-old female patient that presented to the emergency room after complaining of abdominal pain on the left side started in the left lower abdomen and radiating upwards towards the flank. Patient with history of UTIs, sepsis, abdominal obstruction in the past. Has had some mild nausea this morning associated with the pain as well. Denies any other symptoms at this time. Patient currently being worked up by urology for urinary retention. Supposed to have urodynamic studies soon but for the time being has a indwelling Hardy with a leg bag.. Historical: - Allergies: 05:59 Vancomycin; wg 05:59 Phenergan; wg 05:59 adhesive tape-silicones; wg - PMHx: 05:59 Congestive heart failure; Chronic obstructive lung disease; Arthritis; Heart valve wg disorder; - Immunization history:: Adult Immunizations. - Social history:: Smoking status: Patient reports the use of cigarette tobacco products, unknown amount Patient uses. ROS: 08:05 Eyes: Negative for injury, pain, redness, and discharge, ENT: Negative for injury, jr8 pain, and discharge, Neck: Negative for injury, pain, and swelling, Cardiovascular: Negative for chest pain, palpitations, and edema, Respiratory: Negative for shortness of breath, cough, wheezing, and pleuritic chest pain, Back: Negative for injury and pain, MS/Extremity: Negative for injury and deformity, Skin: Negative for injury, rash, and discoloration, Neuro: Negative for headache, weakness, numbness, tingling, and seizure. 08:05 Abdomen/GI: Positive for abdominal pain, nausea, Negative for vomiting, diarrhea, constipation. Exam: 08:05 Eyes: Pupils equal round and reactive to light, extra-ocular motions intact. Lids and jr8 lashes normal. Conjunctiva and sclera are non-icteric and not injected. Cornea within normal limits. Periorbital areas with no swelling, redness, or edema. ENT: Nares patent. No nasal discharge, no septal abnormalities noted. Tympanic membranes are normal and external auditory canals are clear. Oropharynx with no redness, swelling, or masses, exudates, or evidence of obstruction, uvula midline. Mucous membranes moist. Neck: Trachea midline, no thyromegaly or masses palpated, and no cervical lymphadenopathy. Supple, full range of motion without nuchal rigidity, or vertebral point tenderness. No Meningismus. Cardiovascular: Regular rate and rhythm with a normal S1 and S2. No gallops, murmurs, or rubs. Normal PMI, no JVD. No pulse deficits. Respiratory: Lungs have equal breath sounds bilaterally, clear to auscultation and percussion. No rales, rhonchi or wheezes noted. No increased work of breathing, no retractions or nasal flaring. Back: No spinal tenderness. No costovertebral tenderness. Full range of motion. Skin: Warm, dry with normal turgor. Normal color with no rashes, no lesions, and no evidence of cellulitis. MS/ Extremity: Pulses equal, no cyanosis. Neurovascular intact. Full, normal range of motion. Neuro: Awake and alert, GCS 15, oriented to person, place, time, and situation. Cranial nerves II-XII grossly intact. Motor strength 5/5 in all extremities. Sensory grossly intact. 08:05 Abdomen/GI: Inspection: abdomen appears normal, Bowel sounds: active, all quadrants, Palpation: soft, in all quadrants, moderate abdominal tenderness, in the suprapubic area, left upper quadrant and left lower quadrant, no appreciated organomegaly, Indicators: McBurney's point is not tender, Mina's sign is negative, Rovsing's sign is negative, Liver: tenderness, is not appreciated. Vital Signs: 05:56 BP 113 / 58; Pulse 58; Resp 18; Temp 97.8; Pulse Ox 100% on R/A; Weight 54.43 kg; wg Height 5 ft. 5 in. (165.10 cm); Pain 5/10; 08:09 BP 106 / 49; Pulse 61; Resp 15; Pulse Ox 100% ; jl7 09:18 BP 103 / 48; Pulse 54; Resp 15; Pulse Ox 100% ; jl7 05:56 Body Mass Index 19.97 (54.43 kg, 165.10 cm) wg MDM: 06:19 Patient medically screened. jr8 08:54 Data reviewed: vital signs, nurses notes, lab test result(s), and as a result, I will jr8 discharge patient. Data interpreted: Pulse oximetry: on room air is 100 %. Interpretation: normal. Counseling: I had a detailed discussion with the patient and/or guardian regarding: the historical points, exam findings, and any diagnostic results supporting the discharge/admit diagnosis, lab results, the need for outpatient follow up, a urologist, to return to the emergency department if symptoms worsen or persist or if there are any questions or concerns that arise at home. ED course: Discussed with patient other than some mild renal insufficiency no acute findings were found on her labs. CT scan showed some moderate fecal retention. Discussed with patient that she needs to start on MiraLAX for the time being. Otherwise we will culture down her urine but there is no specific bacteria noted. Patient hemodynamically stable and afebrile. We will send patient to follow-up with urology in the next 24 to 48 hours. Knows to come back if she were to have fever or worsening of pain. Patient and family member agreed with the plan at this time.. 07/25 06:05 Order name: Basic Metabolic Panel; Complete Time: 07:50 wg 07/25 06:05 Order name: CBC with Diff; Complete Time: 06:34 wg 07/25 06:05 Order name: Hepatic Function; Complete Time: 07:50 wg 07/25 06:05 Order name: Lipase; Complete Time: 07:50 wg 07/25 06:36 Order name: Urine Microscopic Only; Complete Time: 08:54 jr8 07/25 08:51 Order name: Urine Culture EDNV 07/25 06:05 Order name: IV Saline Lock; Complete Time: 06:14 07/25 06:05 Order name: Labs collected and sent; Complete Time: 06:14 07/25 06:05 Order name: EKG; Complete Time: 06:06 07/25 06:05 Order name: EKG - Nurse/Tech; Complete Time: 06:32 07/25 07:51 Order name: CT Abd/Pelvis - IV Contrast Only; Complete Time: 08:38 jr8 Administered Medications: 08:41 Drug: NS 0.9% 500 ml Route: IV; Rate: bolus; Site: right antecubital; jl7 09:10 Follow up: Response: No adverse reaction; IV Status: Completed infusion; IV Intake: jl7 500ml Disposition Summary: 07/25/21 09:20 Discharge Ordered Location: Home jr Problem: new jr8 Symptoms: have improved jr8 Condition: Stable jr8 Diagnosis - Abdominal pain, Generalized jr8 - Constipation jr8 Followup: jr8 - With: Keron Avalos MD - When: 2 - 3 days - Reason: Recheck today's complaints, Continuance of care, Re-evaluation by your physician Discharge Instructions: - Discharge Summary Sheet jr8 - Abdominal Pain, Adult jr8 - Constipation, Adult jr8 Forms: - Medication Reconciliation Form jr8 - Thank You Letter jr8 - Antibiotic Education jr8 - Prescription Opioid Use jr8 Prescriptions: - Miralax 17 gram Oral powder in packet - take 1 packet by ORAL route once daily; 1 box; Refills: 0, Product Selection jr8 Permitted Addendum: 07/27/2021 19:00 Co-signature as Attending Physician, Rell lima Signatures: Dispatcher [employer] Rell Anguiano MD MD pkl Roszak, Josh, PA PA jr8 Gerard Ruano RN RN jl7 Kendrick Honeycutt RN
--- NOTE | 2021-07-25 09:20 | ER ---
Nurse's Notes [facility] Name: Zunilda España Age: 80 yrs Sex: Female : 1940 Arrival Date: 07/25/2021 Time: 05:41 Bed 19 Private MD: Diagnosis: Abdominal pain, Generalized;Constipation Presentation: 07/25 05:56 Chief complaint: Patient states: Pt c/o left upper quadrant abd pain radiating to the wg left flank area. Pt stated the pain started when the power went out. Pt denies SOB, CP, dizziness and N/V. Coronavirus screen: Vaccine status: Patient reports receiving the 1st dose of the Covid vaccine. J\T\J in May 2021 Client denies travel out of the [place] in the last 14 days. At this time, the client does not indicate any symptoms associated with coronavirus-19. Ebola Screen: Patient negative for fever greater than or equal to 101.5 degrees Fahrenheit, and additional compatible Ebola Virus Disease symptoms Patient denies exposure to infectious person. Patient denies travel to an Ebola-affected area in the 21 days before illness onset. No symptoms or risks identified at this time. Initial Sepsis Screen: Does the patient meet any 2 criteria? No. Patient's initial sepsis screen is negative. Does the patient have a suspected source of infection? No. Patient's initial sepsis screen is negative. Risk Assessment: Do you want to hurt yourself or someone else? Patient reports no desire to harm self or others. Onset of symptoms was July 25, 2021 at 03:00. Care prior to arrival: None. 05:56 Method Of Arrival: Wheelchair 05:56 Acuity: NORY 3 wg Triage Assessment: 06:02 General: Appears in no apparent distress. slender, well groomed, Behavior is calm, wg cooperative, appropriate for age. Pain: Complains of pain in LUQ abdomen radiating to left flank left flank Pain currently is 5 out of 10 on a pain scale. Quality of pain is described as aching, Pain began 3 hours ago. EENT: No deficits noted. Neuro: No deficits noted. Cardiovascular: No deficits noted. Respiratory: No deficits noted. GI: Reports upper abdominal pain. : Reports indwelling catheter- leg bag. Derm: No deficits noted. Musculoskeletal: No deficits noted. 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 Historical: - Allergies: 05:59 Vancomycin; 05:59 Phenergan; 05:59 adhesive tape-silicones; - PMHx: 05:59 Congestive heart failure; Chronic obstructive lung disease; Arthritis; Heart valve wg disorder; - Immunization history:: Adult Immunizations. - Social history:: Smoking status: Patient reports the use of cigarette tobacco products, unknown amount Patient uses. Screenin:01 Abuse screen: Denies threats or abuse. Nutritional screening: No deficits noted. lh3 Tuberculosis screening: No symptoms or risk factors identified. Fall Risk IV access (20 points). Assessment: 06:41 General: Appears in no apparent distress. Behavior is calm, cooperative, appropriate lh3 for age. Cardiovascular: Rhythm is sinus bradycardia. Respiratory: Airway is patent Respiratory effort is even, unlabored, Breath sounds are clear. 07:01 Reassessment: Pt state that she was having some SOB this morning and has been having a lh3 cough and left flank pain. Pt A\T\Ox3, respirations even and unlabored, no acute signs of distress. 08:10 Reassessment: Patient appears in no apparent distress at this time. No changes from 7 previously documented assessment. Patient and/or family updated on plan of care and expected duration. Pain level reassessed. Patient is alert, oriented x 3, equal unlabored respirations, skin warm/dry/pink. 09:19 Reassessment: Patient appears in no apparent distress at this time. No changes from 7 previously documented assessment. Patient and/or family updated on plan of care and expected duration. Pain level reassessed. Patient is alert, oriented x 3, equal unlabored respirations, skin warm/dry/pink. 09:21 Reassessment: SIMÓN Issa at bedside discussing results and POC. jl7 Vital Signs: 05:56 BP 113 / 58; Pulse 58; Resp 18; Temp 97.8; Pulse Ox 100% on R/A; Weight 54.43 kg; Height 5 ft. 5 in. (165.10 cm); Pain 5/10; 08:09 BP 106 / 49; Pulse 61; Resp 15; Pulse Ox 100% ; jl7 09:18 BP 103 / 48; Pulse 54; Resp 15; Pulse Ox 100% ; jl7 05:56 Body Mass Index 19.97 (54.43 kg, 165.10 cm) ED Course: 05:41 Patient arrived in ED. bp1 05:59 Triage completed. wg 06:02 Inserted saline lock: 22 gauge in right forearm, using aseptic technique. Blood ds4 collected. 06:02 Arm band placed on left wrist. wg 06:15 Lashonda Eason, JUAN is Primary Nurse. lh3 06:16 Basic Metabolic Panel Sent. lh3 06:16 CBC with Diff Sent. lh3 06:17 Hepatic Function Sent. lh3 06:17 Lipase Sent. lh3 06:19 Luis Manuel Scales PA is PHCP. jr8 06:19 Rell Zuñiga MD is Attending Physician. jr8 07:01 No provider procedures requiring assistance completed. lh3 07:01 Patient has correct armband on for positive identification. Placed in gown. Bed in low lh3 position. Call light in reach. Side rails up X 1. Adult w/ patient. Door closed. Lights dimmed. Warm blanket given. 08:18 CT Abd/Pelvis - IV Contrast Only In Process Unspecified. EDMS 09:20 Keron Avalos MD is Referral Physician. jr8 09:44 IV discontinued, intact, bleeding controlled, No redness/swelling at site. Pressure jl7 dressing applied. Administered Medications: 08:41 Drug: NS 0.9% 500 ml Route: IV; Rate: bolus; Site: right antecubital; jl7 09:10 Follow up: Response: No adverse reaction; IV Status: Completed infusion; IV Intake: jl7 500ml Intake: 09:10 IV: 500ml; Total: 500ml. jl7 Outcome: 09:20 Discharge ordered by . jr8 09:44 Discharged to home ambulatory. jl7 09:44 Condition: stable 09:44 Discharge instructions given to patient, family, Instructed on discharge instructions, follow up and referral plans. medication usage, Demonstrated understanding of instructions, follow-up care, medications, Prescriptions given X 1. 09:44 Patient left the ED. jl7 Signatures: Dispatcher [employer] EDMS Luis Manuel Scales PA PA jr8 Jarrett Rodas ds4 Gerard Ruano RN RN jl7 Yolanda Cantu bp1 Lashonda Eason RN RN 3 Kendrick Honeycutt RN
[2021-07-25 09:52] VITALS: TEMP 97.8; O2SAT 100
[2021-07-25 09:54] VITALS: BP 103/48
--- NOTE | 2021-07-26 08:17 | EKG ---
Test Date: 2021-07-25 Test Time: 06:26:49 Order Takers Supervisor: CHERYL MEASUREMENT RESULTS: Intervals: Rate: 57 VA: 200 QRSD: 74 QT: 462 QTc: 449 [place]: P: 0 VA: 200 QRS: 55 T: 61 INTERPRETIVE STATEMENTS: Sinus bradycardia with premature atrial complexes Otherwise normal ECG No previous ECG available for comparison Electronically Signed On 07-26-21 08:14:28 CDT by Jamie Rivers
== END 2021-07-25 09:44 | disposition home or self-care (01) ==
LOC: ER 05:33
DX: K59.00 Constipation, unspecified (principal); I50.9 Heart failure, unspecified; Z72.0 Tobacco use; Z88.3 Allergy status to other anti-infective agents; Z88.8 Allergy status to other drugs, medicaments and biological substances; Z91.048 Other nonmedicinal substance allergy status
CPT/HCPCS: 93005; 87088; 85025; 87086; 80048; 36415; 80076; 81015; 83690; 74177; 99284; Q9967; J7040

== ENCOUNTER 2023-04-16 11:00 | Inpatient (IN) | payer OTHER, BC ==
--- OUTSIDE RECORDS SUMMARY | 2023-04-16 13:18 | XMS REPORT | Continuity of Care Document ---
:1940 Author Organization [facility] t Address [address] [place] [address] Care Team Providers Name Role Phone LUIS TAN Primary Care Physician Brooks Preston Attending Clinician Unavailable Brooks Preston Attending Clinician Unavailable CATIA LUCIANO Attending Clinician Unavailable Patricio Attending Clinician Unavailable CORNEL ELIZABETH Attending Clinician Unavailable Umair Shaw Attending Clinician Unavailable Jia Manzano Attending Clinician Unavailable PATRICIA BOB Attending Clinician Unavailable LUIS TAN Attending Clinician Unavailable Markell Robb Attending Clinician MARKELL ROBB Attending Clinician Unavailable TALHA GUILLORY Attending Clinician Unavailable Doctor Unassigned, [place] Attending Clinician Unavailable TRACEY PAN Attending Clinician Unavailable Nuha NELSON, Alvina Shaver Attending Clinician [phone] Tracey Pan MD Attending Clinician Fredy Callahan MD Attending Clinician SOCORRO GUPTA Attending Clinician Unavailable ION GODOY Attending Clinician Unavailable Sebas Goff Attending Clinician Unavailable SAVANAH ALANIS Attending Clinician Unavailable DANA MANZANO Attending Clinician Unavailable Bang Pina Attending Clinician Colt Pedroza Attending Clinician COLT PEDROZA Attending Clinician Unavailable SAM GILMAN Attending Clinician Unavailable RAFAEL PALACIOS Attending Clinician Unavailable Molly Jacinto RN Attending Clinician Unavailable ELA Attending Clinician Unavailable RAFAEL PALACIOS Attending Clinician Unavailable LADAN JETT Attending Clinician Unavailable OLU ESPINOSA Attending Clinician Unavailable PANCHITO PHAN Attending Clinician Unavailable Panchito Phan Attending Clinician Karly Shah Attending Clinician BLACK TAYLOR Attending Clinician Unavailable RACHEL MCKEON Attending Clinician Unavailable MATT WALKER Attending Clinician Unavailable TRISHA CASTRO Attending Clinician Unavailable Gramm Julia PEREZ Attending Clinician JULIA VALENZUELA Attending Clinician Unavailable LAURA ROLDAN Attending Clinician Unavailable FELIPE RICH Attending Clinician Unavailable RHEA ADHIKARI Attending Clinician Unavailable VIRY DE LA O Attending Clinician Unavailable APRIL DORSEY Attending Clinician Unavailable April Dorsey Attending Clinician More_Melinda Attending Clinician Unavailable MAXIMILIAN GOLDSTEIN Attending Clinician Unavailable Sara Attending Clinician Unavailable DR EMMIE URBANO Attending Clinician Unavailable PRISCILLA FLOR OBIOMA Attending Clinician Unavailable ARISTIDES CAMACHO Attending Clinician Unavailable ARISTIDES CAMACHO Attending Clinician Unavailable BARRETT QUINTANILLA Attending Clinician Unavailable HERMELINDA FRIED M.D. Attending Clinician Unavailable Olivia Miranda Attending Clinician BASIL RAMIREZ Attending Clinician Unavailable MORIAH MITCHELL Attending Clinician Unavailable CONCHIS JETT Attending Clinician Unavailable ERASMO CORBIN Attending Clinician Unavailable MERLIN MILLER Attending Clinician Unavailable Helen Madden Attending Clinician Felipe Fried Attending Clinician Eugenio Rosa Attending Clinician Unavailable MARIANGEL GOODRICH Attending Clinician Unavailable Timi Garzon I. Attending Clinician Unavailable SOCORRO MOTT Attending Clinician Unavailable ARACELI MONTENEGRO Attending Clinician Unavailable DOLORES FERNANDEZ Attending Clinician Unavailable GABE ELIZONDO Attending Clinician Unavailable PRESLEY MINER Attending Clinician Unavailable NIKHIL VAZQUEZ Attending Clinician Unavailable MARGRET FREEDMAN Attending Clinician Unavailable NII COMBS Attending Clinician Unavailable ASHTYN MENDES Attending Clinician Unavailable Brooks Preston Admitting Clinician Unavailable CATIA LUCIANO Admitting Clinician Unavailable Patricio Admitting Clinician Unavailable Umair Shaw Admitting Clinician Unavailable Laury Fernandez Admitting Clinician LAURY FERNANDEZ Admitting Clinician Unavailable FREDY CALLAHAN Admitting Clinician Unavailable Fredy Callahan MD Admitting Clinician ION GODOY Admitting Clinician Unavailable Bang Pina Admitting Clinician Colt Pedroza Admitting Clinician COLT PEDROZA Admitting Clinician Unavailable ELA Admitting Clinician Unavailable OLU ESPINOSA Admitting Clinician Unavailable KARLY SHAH Admitting Clinician Unavailable Karly Shah Admitting Clinician APRIL DORSEY Admitting Clinician Unavailable April Dorsey Admitting Clinician Kalee Admitting Clinician Unavailable Sara Admitting Clinician Unavailable DR EMMIE URBANO Admitting Clinician Unavailable DR PRISCILLA FLOR Admitting Clinician Unavailable Jerry Jensen Admitting Clinician Felipe Fried Admitting Clinician ARACELI MONTENEGRO Admitting Clinician Unavailable SOCORRO MOTT Admitting Clinician Unavailable NIKHIL VAZQUEZ Admitting Clinician Unavailable Payers Payer Name Policy Type Policy Number Effective Date Expiration Date Lynette celestin BCBSTX PPO [id number] 2021 2024 00:00:00 00:00:00 [place] [id number] 2004 [employer] - Financial Reconciliation 00:00:00 [place]: [id number] 2004 [employer] - Financial Reconciliation 00:00:00 - [facility] MEDICARE PART A [id number] 2004 AND B 00:00:00 [place] [id number] 2016 [place] (MEDICARE 00:00:00 SUPPLEMENT) Problems Condition Condition Condition Status Onset Resolution Last Treating Co mments Source Name Details Category Date Date Treatment Clinician Date E44.0 E44.0 Disease Active 2021-11 Univers Moderate Moderate 2-06 ity of protein protein 00:00: [place] calorie calorie 00 Medical malnutriti malnutriti Br anch on on GI GI Diagnosis Active 2021-112022-11-05 Mem oria BLEEDING, BLEEDING, 2-05 21:45:00 l [id number] 00:00: Johnny n Active 00 10/15/2022 Waves Hypotensio Hypotensio Disease Active 2021-11 U nivers n n 1-30 ity of 00:00: [place] 00 [facility] Sepsis Sepsis Disease Active 2021-11 Univers 1-30 ity of 00:00: [place] 00 [facility] Wrist Wrist Disease Active 2021-11 Univers swelling, swelling, 1-30 ity of left left 00:00: [place] 00 [facility] Neck pain Neck pain Disease Active 2021-11 Uni vers 1-30 ity of 00:00: [place] 00 [facility] CHRONIC CHRONIC Diagnosis Active 2022-08-16 Memoria PROGRESSIV PROGRESSIV 07-18 21:58:00 l E E 00:00: Syed PERIPHERAL PERIPHERAL 00 NEUROPATH NEUROPATH Active 07/18/2022 [facility] ISCHEMIC ISCHEMIC Diagnosis Active 2022-07-22 [place] STROKE STROKE 07-18 11:46:00 l Active 00:00: Syed 07/18/2022 00 [facility], [facility] LEFT LEFT Diagnosis Active 2021-12-28 Mem oria LEG/FEMUR LEG/FEMUR 2-17 16:00:00 l FX FX Active 00:00: Syed 12/28/2021 00 [facility] ACCIDENTAL ACCIDENTA Diagnosis Active 2022-01-16 Memoria FALL L FALL 2- 21:43:00 l Active 00:00: Constantia 12/28/2021 [facility] FALL FALL Diagnosis Active 2021-03-01 Mem oria Active 02-28 03:13:00 l 02/28/2021 00:00: Johnny lares [address] FREQUENT FREQUENT Diagnosis Active 2021-03-02 Memoria FALLS FALLS - 12:54:00 l Active 00:00: Constantia 02/28/2021 00 [facility] SEIZURES, SEIZURES, Diagnosis Active 2020-02-07 Memoria AMS AMS Active 02-03 10:57:00 l 02/04/2020 00:00: Johnny lares [address] Pain in Pain in Problem Active [place] pelvis Pelvis 2-28 da 00:00: Medical Group Vulval Vulval Problem Active [place] eczema Eczema 2-28 da 00:00: Medical Group Pressure Pressure Problem Active [place] ulcer of Ulcer of 2-07 da ear Ear 00:00: Medical 00 Group Restless Restless Problem Active [place] legs Legs 8-21 da 00:00: Medical 00 Group Partial Partial Problem Active [place] obstructio Obstructio 8-03 da n of small n of Small 00:00: Me dical bowel Bowel 00 Group Thoracic Thoracic Problem Active [place] back pain Back Pain 8-03 da 00:00: Medical Group Pain of Pain of Problem Active [place] left hip Left Hip 7-18 da joint Joint 00:00: Medical Group Persistent Persistent Problem Active M [place] cough Cough 7-17 da 00:00: Medical 00 Group Dyspareuni Dyspareuni Problem Active M [place] a a 3-12 da 00:00: Medical 00 Group 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 Vaginitis 3-12 da 00:00: Medical Group LEFT LEFT Diagnosis Active 2016-03-31 Mem oria FERMORAL FERMORAL 4- 15:31:00 l DIAPHYSIS DIAPHYSIS 00:00: Herm chandu FX FX Active 02/28/2016 [facility] LEFT LEFT Diagnosis Active 2016-04-19 Mem oria FEMORAL FEMORAL - 20:50:00 l DIAPHYSIS DIAPHYSIS 00:00: Herm chandu FX FX Active 02/28/2016 [facility] Hypovolemi Hypovolemi Problem Active M [facility] Pernicious Pernicious Problem Active M [facility] anemia Anemia [facility] Acute Acute Problem Active [...] of trunk of [facility] Atrial Atrial Problem Resolve 2022-10-29 Mem oria fibrillati fibrillati d 13:20:05 l on on Syed (disorder) (disorder) Resolved Problem 10/29/2022 Medical Group,[facility], [facility] Asthma Asthma Problem Resolve 2022-10-29 Mem oria (disorder) (disorder) d 13:20:05 l Resolved Constantia Problem 10/29/2022 Medical Group,[facility], [facility] Atheroscle Problem Resolve 2022-10-29 Memoria rosis of Atheroscle d 13:20:05 l coronary rosis of Johnny n artery coronary (disorder) artery (disorder) Resolved Problem 10/29/2022 Medical Group,[facility], [facility] Congestive Congestiv Problem Resolve 2022-10-29 Memoria heart e heart d 13:20:05 l failure failure Constantia (disorder) (disorder) Resolved Problem 10/29/2022 Medical Group,[facility], [facility] Chronic Chronic Problem Resolve 2022-10-29 M emoria obstructiv obstructiv d 13:20:05 l e lung e lung Syed disease disease (disorder) (disorder) Resolved Problem 10/29/2022 Medical Group,[facility], [facility] Deep Deep Problem Resolve 2022-10-29 Ervin marybel venous venous d 13:20:05 l thrombosis thrombosis He rmann (disorder) (disorder) Resolved Problem 10/29/2022 Medical Group,[facility], [facility] Peripheral Problem Resolve 2022-10-29 Memoria vascular Peripheral d 13:20:05 l disease vascular Syde (disorder) disease (disorder) Resolved Problem 10/29/2022 Medical Group,[facility], [facility] Age-relate Age-relat Problem Active 2022-10-31 Memoria d macular ed macular 02:15:27 l degenerati degenerati He rmann on on (disorder) (disorder) Active Problem 10/31/2022 Medical Group,[facility], [facility] Benign Benign Problem Active 2021-03-06 Ervin marybel hypertensi hypertensi 07:48:17 l on on Syed (disorder) (disorder) Active Problem 03/06/2021 Data migrated from [facility] on 04/09/15. Medical Group,[facility] Dementia Dementia Problem Active 2021-03-06 Memoria (disorder) (disorder) 07:48:17 l Active Syed Problem 03/06/2021 Data migrated from [employer] on 04/09/15. Medical Group,[facility] Depressive Depressiv Problem Active 2021-03-06 Memoria disorder e disorder 07:48:17 l (disorder) (disorder) He rmann Active Problem 03/06/2021 Data migrated from [employer] on 04/09/15. 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 [facility] NEUROPATHY NEUROPATH Diagnosis Active 2022-08-16 Memoria IN Y IN 21:58:00 l ASSOCIATIO ASSOCIATIO He rmann N WITH N WITH HEREDITAR HEREDITAR Active [facility] Hypermetro Hypermetr Problem Active 2022-10-31 Memoria ana laura opia 02:15:27 l (disorder) (disorder) He rmann Active Problem 10/31/2022 Medical Group,[facility], [facility] Hypothyroi Hypothyro Problem Active 2022-10-29 Memoria dism idism 13:20:05 l (disorder) (disorder) He rmann Active Problem 10/29/2022 Data migrated from [employer] on 04/09/15. Medical Group,[facility], [facility] Myopia Myopia Problem Active 2022-10-31 Ervin marybel (disorder) (disorder) 02:15:27 l Active Constantia Problem 10/31/2022 Medical Group,[facility], [facility] Pseudophak Pseudopha Problem Active 2022-10-31 Memoria ia dagoberto 02:15:27 l (disorder) (disorder) He rmann Active Problem 10/31/2022 Medical Group,[facility] Anemia of Anemia of Problem Active 2022-10-31 Memoria chronic chronic 02:15:27 l disorder disorder Johnny n (disorder) (disorder) Active Problem 10/31/2022 [facility] Anxiety Anxiety Problem Active 2022-10-31 Me moria disorder disorder 02:15:27 l (disorder) (disorder) He rmann Active Problem 10/31/2022 [facility] Cardiac Cardiac Problem Active 2022-10-31 [facility] pacemaker pacemaker 02:15:27 l in situ in situ Constantia (finding) (finding) Active Problem 10/31/2022 [facility] Chronic Chronic Problem Active 2022-10-31 [facility] heart heart 02:15:27 l failure failure Constantia (disorder) (disorder) Active Problem 10/31/2022 [facility] Gastroesop Gastroeso Problem Active 2022-10-31 Memoria hageal phageal 02:15:27 l reflux reflux Constantia disease disease (disorder) (disorder) Active Problem 10/31/2022 [facility] History of History Problem Active 2022-10-31 Memoria cerebrovas of 02:15:27 l cular cerebrovas Johnny n accident cular without accident residual without deficits residual (situation deficits ) (situation ) Active Problem 10/31/2022 [facility] Hypertensi Hypertens Problem Active 2022-01-01 Memoria ve rogers 10:04:11 l disorder, disorder, Herm chandu systemic systemic arterial arterial (disorder) (disorder) Active Problem 01/01/2022 [facility] 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 protein protein 02:15:27 l energy energy Constantia malnutriti malnutriti on on (disorder) (disorder) Active Problem 10/31/2022 [facility] Osteoporos Osteoporo Problem Active 2022-10-31 Memoria is sis 02:15:27 l (disorder) (disorder) He rmann Active Problem 10/31/2022 [facility] Paroxysmal Paroxysma Problem Active 2022-10-31 Memoria atrial l atrial 02:15:27 l fibrillati fibrillati He rmann on on (disorder) (disorder) Active Problem 10/31/2022 [facility] Recurrent Recurrent Problem Active 2022-10-31 Memoria coronary coronary 02:15:27 l arterioscl arterioscl He rmann erosis erosis after after percutaneo percutaneo us us translumin translumin al al coronary coronary angioplast angioplast y y (disorder) (disorder) Active Problem 10/31/2022 [facility] Seizure Seizure Problem Active 2022-10-31 Me moria disorder disorder 02:15:27 l (disorder) (disorder) He rmann Active Problem 10/31/2022 [facility] Sick sinus Sick Problem Active 2022-10-31 M emoria syndrome sinus 02:15:27 l (disorder) syndrome Herm chandu (disorder) Active Problem 10/31/2022 [facility] Supraventr Supravent Problem Active 2022-10-31 Memoria icular ricular 02:15:27 l tachycardi tachycardi He rmann a a (disorder) (disorder) Active Problem 10/31/2022 [facility] Foot-drop Foot-drop Problem Active 2022-10-31 Memoria (finding) (finding) 02:15:27 l Active Constantia Problem 10/31/2022 [facility] UNSPECIFIE UNSPECIFI Diagnosis Active 2022-01-16 Memoria D FALL, ED FALL, 21:43:00 l INITIAL INITIAL Constantia ENCOUNTER ENCOUNTER Active [facility] FRACTURE FRACTURE Diagnosis Active 2016-04-19 Memoria NOS-CLOSED NOS-CLOSED 20:50:00 l Active [facility] Seizures Seizures Problem [facility] No known No known Disease Unive rs active active ity of problems problems [facility] REPEATED REPEATED Diagnosis Active 2021-03-02 Memoria FALLS FALLS 12:54:00 l Active Johnny lares [facility] History of Past Illness Condition Condition Condition Status Onset Resolution Last Treating Co mments Source Name Details Category Date Date Treatment Clinician Date Anemia in Anemia in Problem 2021-2022-07-24 2022-07-24 Memoria other other 07-20 21:59:12 21:59:12 l chronic chronic 15:56: Syed diseases diseases 00 classified classified elsewhere elsewhere 07/20/2022 07/24/2022 [facility] Allergies, Adverse Reactions, Alerts Allergy Allergy Status Severity Reaction(s) Onset Inactive Treating Comm ents Source Name Type Date Date Clinician PROMETHA DRUG Active High Unknown-Cmnt 2021-11 Un mesfin ZINE INGREDI 1-30 ity of 00:00: [place] [facility] REMDESIV DRUG Active Other-Cmnt 2021-11 Univ ers IR INGREDI 1-30 ity of 00:00: [place] 00 [facility] NSAIDS Drug Active Other-Cmnt 2021-11 Univer s (NON-RODRIGO Class 1-30 ity of ROIDAL 00:00: [place] ANTI-INF 00 Medical LAMMATOR Branch Y DRUG) Nsaids Propensi Active Other - See 2021-11 Stomach Un mesfin (Non-Rodrigo ty to comments 1-30 ulcers ity of roidal adverse 00:00: [place] Anti-Inf reaction 00 Medica l lammator s Branch y Drug) Prometha Propensi Active Unknown - 2021-11 Uni vers zine ty to See comments 1-30 ity of adverse 00:00: [place] reaction 00 Medical s Branch Remdesiv Propensi Active Other - See 2021-11 Low HR U nivers ir ty to comments 1-30 ity of adverse 00:00: [place] reaction 00 Medical s Branch Prometha DA Active Unknown 2019-0 [facility] zine 07-14 Medical 00:00: Center 00 Adhesive DA Active Unknown 2019-0 [facility] Tape 07-14 Medical 00:00: Center 00 NSAIDS DA Active Unknown [facility] 07-14 Medical 00:00: Center 00 Vancomyc Propensi Active Other - See 2016-11 Kidney U nivers in ty to comments 1-25 failure ity of adverse 00:00: [place] reaction 00 Medical s Branch VANCOMYC DRUG Active Other-Cmnt 2016- Univ ers IN INGREDI 12-05 ity of 00:00: [place] 00 [facility] prometha prometha Active Memori a zine<sup zine<sup l >1</sup> >1</sup> Johnny n Adhesive Adhesive Active Memori a Tape<sup Tape<sup l >2</sup> >2</sup> Johnny n vancomyc vancomyc Active Memori a in in l Syed Adhesive Adhesive Active Memori a Tape<sup Tape<sup l >1</sup> >1</sup> Johnny n Phenerga Allergy Active Moderate Other [place] [facility] Medical e Group ADHESIVE Allergy Active [place] TAPE to [facility] Medical e Group Social History Social Habit Start Date Stop Date Quantity Comments Source History of Passive smoker [facility] of tobacco use [facility] Exposure to 2022-09-30 2022-10-10 Not sure [facility] SARS-CoV-2 00:00:00 07:10:00 [facility] (event) [place] Tobacco use and 2022-10-10 2022-10-10 Smokeless tobacco Un iversity of exposure 00:00:00 00:00:00 non-user [facility] Social History 2016-02-29 2016-02-29 [facility] 08:11:02 08:11:02 Sex Ass[birth year] [place] [facility] 00:00:00 00:00:00 Smoking Status Start Date Stop Date Source Tobacco smoking consumption [facility] unknown Tobacco smoking status 2022-10-25 12:58:14 2022-10-25 12:58:14 [facility] Medications Ordered Filled Start Stop Current Ordering Indication Dosage Frequency Signature Comments Components Source Medication Medication Date Date Medication? Clinician (SIG) Name Name docusate 2021-11 Yes 100 mg = 1 Mem oria sodium 100 2-18 cap, PO, l mg oral 17:04: BID, PRN Johnny n capsule 00 constip, # 60 cap, 0 Refill(s), Pharmacy: [id number], 165.1, cm, 10/25/22 6:05:00 [facility] RADIOLOGICAL TECHNOLOGIST, Height, 60.2, kg, 10/25/22 6:05:00 [facility] RADIOLOGICAL TECHNOLOGIST, Weight pantoprazol 2021-11 Yes 40 mg = 1 M emoria e 40 mg 2-18 tab, PO, l oral 17:04: BID, # 60 Syed enteric 00 tab, 0 coated Refill(s), [id number], 165.1, cm, 10/25/22 6:05:00 [facility] [employer] RADIOLOGICAL TECHNOLOGIST, Height, 60.2, kg, 10/25/22 6:05:00 [facility] RADIOLOGICAL TECHNOLOGIST, Weight MiraLax 2021-11 Yes 17 gm, PO, Ervin marybel oral powder 2-18 Daily, X l for 17:04: 31 day, # Syed reconstitut 00 527 gm, 0 ion Refill(s), Pharmacy: [facility] #[id number], 165.1, cm, 10/25/22 6:05:00 [facility] [employer] RADIOLOGICAL TECHNOLOGIST, Height, 60.2, kg, 10/25/22 6:05:00 [facility] [employer] RADIOLOGICAL TECHNOLOGIST, Weight lactulose 2021-11 Yes 20 gm = 30 Me moria 10 g/15 mL 2-18 mL, PO, l oral syrup 17:04: BID, PRN Her feng 00 constipati on, X 30 day, # 1,000 mL, 0 Refill(s), Pharmacy: [facility] #[id number], 165.1, cm, 10/25/22 6:05:00 [facility] [employer] RADIOLOGICAL TECHNOLOGIST, Height, 60.2, kg, 10/25/22 6:05:00 [employer] [employer] RADIOLOGICAL TECHNOLOGIST, Weight docusate 2021-11 Yes 100 mg = 1 Mem oria sodium 100 2-18 cap, PO, l mg oral 17:04: BID, PRN Johnny n capsule 00 constip, # 60 cap, 0 Refill(s), Pharmacy: [facility] #[id number], 165.1, cm, 10/25/22 6:05:00 C[facility] LAB RADIOLOGICAL TECHNOLOGIST, Height, 60.2, kg, 10/25/22 6:05:00 [employer] RADIOLOGICAL TECHNOLOGIST, Weight pantoprazol 2021-11 Yes 40 mg = 1 M emoria e 40 mg 2-18 tab, PO, l oral 17:04: BID, # 60 Constantia enteric 00 tab, 0 coated Refill(s), tablet Pharmacy: [facility] #[id number], 165.1, cm, 10/25/22 6:05:00 C[facility] [employer] RADIOLOGICAL TECHNOLOGIST, Height, 60.2, kg, 10/25/22 6:05:00 C[facility] [employer] RADIOLOGICAL TECHNOLOGIST, Weight MiraLax 2021-11 Yes 17 gm, PO, Ervin marybel oral powder 2-18 Daily, X l for 17:04: 31 day, # Constantia reconstitut 00 527 gm, 0 ion Refill(s), [id number], 165.1, cm, 10/25/22 6:05:00 CATH LAB RADIOLOGICAL TECHNOLOGIST, Height, 60.2, kg, 10/25/22 6:05:00 C[facility] LAB RADIOLOGICAL TECHNOLOGIST, Weight lactulose 2021-11 Yes 20 gm = 30 Me moria 10 g/15 mL 2-18 mL, PO, l oral syrup 17:04: BID, PRN Her feng 00 constipati on, X 30 day, # 1,000 mL, 0 Refill(s), Pharmacy: [facility] #[id number], 165.1, cm, 10/25/22 6:05:00 CATH LAB RADIOLOGICAL TECHNOLOGIST, Height, 60.2, kg, 10/25/22 6:05:00 CATH LAB RADIOLOGICAL TECHNOLOGIST, Weight docusate 2021-11 Yes 100 mg = 1 Mem oria sodium 100 2-18 cap, PO, l mg oral 17:04: BID, PRN Johnny n capsule 00 constip, # 60 cap, 0 Refill(s), Pharmacy: [facility] #[id number], 165.1, cm, 10/25/22 6:05:00 CATH LAB RADIOLOGICAL TECHNOLOGIST, Height, 60.2, kg, 10/25/22 6:05:00 CATH LAB RADIOLOGICAL TECHNOLOGIST, Weight pantoprazol 2021-11 Yes 40 mg = 1 M emoria e 40 mg 2-18 tab, PO, l oral 17:04: BID, # 60 Syed enteric 00 tab, 0 coated Refill(s), tablet Pharmacy: [facility] #[id number], 165.1, cm, 10/25/22 6:05:00 CATH LAB RADIOLOGICAL TECHNOLOGIST, Height, 60.2, kg, 10/25/22 6:05:00 CATH LAB RADIOLOGICAL TECHNOLOGIST, Weight MiraLax 2021-11 Yes 17 gm, PO, Ervin marybel oral powder 2-18 Daily, X l for 17:04: 31 day, # Syed reconstitut 00 527 gm, 0 ion Refill(s), Pharmacy: [facility] #[id number], 165.1, cm, 10/25/22 6:05:00 CATH LAB RADIOLOGICAL TECHNOLOGIST, Height, 60.2, kg, 10/25/22 6:05:00 CATH LAB RADIOLOGICAL TECHNOLOGIST, Weight lactulose 2021-11 Yes 20 gm = 30 Me moria 10 g/15 mL 2-18 mL, PO, l oral syrup 17:04: BID, PRN Her feng 00 constipati on, X 30 day, # 1,000 mL, 0 Refill(s), Pharmacy: [facility] #[id number], 165.1, cm, 10/25/22 6:05:00 CATH LAB RADIOLOGICAL TECHNOLOGIST, Height, 60.2, kg, 10/25/22 6:05:00 CATH LAB RADIOLOGICAL TECHNOLOGIST, Weight docusate 2021-11 Yes 100 mg = 1 Mem oria sodium 100 2-18 cap, PO, l mg oral 17:04: BID, PRN Johnny n capsule 00 constip, # 60 cap, 0 Refill(s), Pharmacy: [facility] #[id number], 165.1, cm, 10/25/22 6:05:00 CATH LAB RADIOLOGICAL TECHNOLOGIST, Height, 60.2, kg, 10/25/22 6:05:00 CATH LAB RADIOLOGICAL TECHNOLOGIST, Weight pantoprazol 2021-11 Yes 40 mg = 1 M emoria e 40 mg 2-18 tab, PO, l oral 17:04: BID, # 60 Syed enteric 00 tab, 0 coated Refill(s), tablet Pharmacy: [id number], 165.1, cm, 10/25/22 6:05:00 CATH LAB RADIOLOGICAL TECHNOLOGIST, Height, 60.2, kg, 10/25/22 6:05:00 CATH LAB RADIOLOGICAL TECHNOLOGIST, Weight MiraLax 2021-11 Yes 17 gm, PO, Ervin marybel oral powder 2-18 Daily, X l for 17:04: 31 day, # Syed reconstitut 00 527 gm, 0 ion Refill(s), Pharmacy: [id number], 165.1, cm, 10/25/22 6:05:00 CATH LAB RADIOLOGICAL TECHNOLOGIST, Height, 60.2, kg, 10/25/22 6:05:00 CATH LAB RADIOLOGICAL TECHNOLOGIST, Weight lactulose 2021-11 Yes 20 gm = 30 Me moria 10 g/15 mL 2-18 mL, PO, l oral syrup 17:04: BID, PRN Her feng 00 constipati on, X 30 day, # 1,000 mL, 0 Refill(s), Pharmacy: [id number], 165.1, cm, 10/25/22 6:05:00 CATH LAB RADIOLOGICAL TECHNOLOGIST, Height, 60.2, kg, 10/25/22 6:05:00 CATH LAB RADIOLOGICAL TECHNOLOGIST, Weight docusate 2021-11 Yes 100 mg = 1 Mem oria sodium 100 2-18 cap, PO, l mg oral 17:04: BID, PRN Johnny n capsule 00 constip, # 60 cap, 0 Refill(s), Pharmacy: [id number], 165.1, cm, 10/25/22 6:05:00 CATH LAB RADIOLOGICAL TECHNOLOGIST, Height, 60.2, kg, 10/25/22 6:05:00 CATH LAB RADIOLOGICAL TECHNOLOGIST, Weight pantoprazol 2021-11 Yes 40 mg = 1 M emoria e 40 mg 2-18 tab, PO, l oral 17:04: BID, # 60 Constantia enteric 00 tab, 0 coated Refill(s), tablet Pharmacy: [id number], 165.1, cm, 10/25/22 6:05:00 CATH LAB RADIOLOGICAL TECHNOLOGIST, Height, 60.2, kg, 10/25/22 6:05:00 CATH LAB RADIOLOGICAL TECHNOLOGIST, Weight MiraLax 2021-11 Yes 17 gm, PO, Ervin marybel oral powder 2-18 Daily, X l for 17:04: 31 day, # Syed reconstitut 00 527 gm, 0 ion Refill(s), Pharmacy: [id number], 165.1, cm, 10/25/22 6:05:00 CATH LAB RADIOLOGICAL TECHNOLOGIST, Height, 60.2, kg, 10/25/22 6:05:00 CATH LAB RADIOLOGICAL TECHNOLOGIST, Weight lactulose 2021-11 Yes 20 gm = 30 Me moria 10 g/15 mL 2-18 mL, PO, l oral syrup 17:04: BID, PRN Her feng 00 constipati on, X 30 day, # 1,000 mL, 0 Refill(s), Pharmacy: [id number], 165.1, cm, 10/25/22 6:05:00 CATH LAB RADIOLOGICAL TECHNOLOGIST, Height, 60.2, kg, 10/25/22 6:05:00 CATH LAB RADIOLOGICAL TECHNOLOGIST, Weight docusate 2021-11 Yes 100 mg = 1 Mem oria sodium 100 2-18 cap, PO, l mg oral 17:04: BID, PRN Johnny n capsule 00 constip, # 60 cap, 0 Refill(s), Pharmacy: [id number], 165.1, cm, 10/25/22 6:05:00 CATH LAB RADIOLOGICAL TECHNOLOGIST, Height, 60.2, kg, 10/25/22 6:05:00 CATH LAB RADIOLOGICAL TECHNOLOGIST, Weight pantoprazol 2021-11 Yes 40 mg = 1 M emoria e 40 mg 2-18 tab, PO, l oral 17:04: BID, # 60 Syed enteric 00 tab, 0 coated Refill(s), tablet Pharmacy: [id number], 165.1, cm, 10/25/22 6:05:00 CATH LAB RADIOLOGICAL TECHNOLOGIST, Height, 60.2, kg, 10/25/22 6:05:00 CATH LAB RADIOLOGICAL TECHNOLOGIST, Weight MiraLax 2021-11 Yes 17 gm, PO, Ervin marybel oral powder 2-18 Daily, X l for 17:04: 31 day, # Constantia reconstitut 00 527 gm, 0 ion Refill(s), Pharmacy: [id number], 165.1, cm, 10/25/22 6:05:00 CATH LAB RADIOLOGICAL TECHNOLOGIST, Height, 60.2, kg, 10/25/22 6:05:00 CATH LAB RADIOLOGICAL TECHNOLOGIST, Weight lactulose 2021-11 Yes 20 gm = 30 Me moria 10 g/15 mL 2-18 mL, PO, l oral syrup 17:04: BID, PRN Her feng 00 constipati on, X 30 day, # 1,000 mL, 0 Refill(s), Pharmacy: [id number], 165.1, cm, 10/25/22 6:05:00 CATH LAB RADIOLOGICAL TECHNOLOGIST, Height, 60.2, kg, 10/25/22 6:05:00 CATH LAB RADIOLOGICAL TECHNOLOGIST, Weight docusate 2021-11 Yes 100 mg = 1 Mem oria sodium 100 2-18 cap, PO, l mg oral 17:04: BID, PRN Johnny n capsule 00 constip, # 60 cap, 0 Refill(s), Pharmacy: [id number], 165.1, cm, 10/25/22 6:05:00 CATH LAB RADIOLOGICAL TECHNOLOGIST, Height, 60.2, kg, 10/25/22 6:05:00 CATH LAB RADIOLOGICAL TECHNOLOGIST, Weight pantoprazol 2021-11 Yes 40 mg = 1 M emoria e 40 mg 2-18 tab, PO, l oral 17:04: BID, # 60 Syed enteric 00 tab, 0 coated Refill(s), tablet Pharmacy: [id number], 165.1, cm, 10/25/22 6:05:00 CATH LAB RADIOLOGICAL TECHNOLOGIST, Height, 60.2, kg, 10/25/22 6:05:00 CATH LAB RADIOLOGICAL TECHNOLOGIST, Weight MiraLax 2021-11 Yes 17 gm, PO, Ervin marybel oral powder 2-18 Daily, X l for 17:04: 31 day, # Constantia reconstitut 00 527 gm, 0 ion Refill(s), Pharmacy: [id number], 165.1, cm, 10/25/22 6:05:00 CATH LAB RADIOLOGICAL TECHNOLOGIST, Height, 60.2, kg, 10/25/22 6:05:00 CATH LAB RADIOLOGICAL TECHNOLOGIST, Weight lactulose 2021-11 Yes 20 gm = 30 Me moria 10 g/15 mL 2-18 mL, PO, l oral syrup 17:04: BID, PRN Her feng 00 constipati on, X 30 day, # 1,000 mL, 0 Refill(s), Pharmacy: [id number], 165.1, cm, 10/25/22 6:05:00 CATH LAB RADIOLOGICAL TECHNOLOGIST, Height, 60.2, kg, 10/25/22 6:05:00 CATH LAB RADIOLOGICAL TECHNOLOGIST, Weight docusate 2021-11 Yes 100 mg = 1 Mem oria sodium 100 2-18 cap, PO, l mg oral 17:04: BID, PRN Johnny n capsule 00 constip, # 60 cap, 0 Refill(s), Pharmacy: [id number], 165.1, cm, 10/25/22 6:05:00 CATH LAB RADIOLOGICAL TECHNOLOGIST, Height, 60.2, kg, 10/25/22 6:05:00 CATH LAB RADIOLOGICAL TECHNOLOGIST, Weight pantoprazol 2021-11 Yes 40 mg = 1 M emoria e 40 mg 2-18 tab, PO, l oral 17:04: BID, # 60 Syed enteric 00 tab, 0 coated Refill(s), tablet Pharmacy: [id number], 165.1, cm, 10/25/22 6:05:00 CATH LAB RADIOLOGICAL TECHNOLOGIST, Height, 60.2, kg, 10/25/22 6:05:00 CATH LAB RADIOLOGICAL TECHNOLOGIST, Weight MiraLax 2021-11 Yes 17 gm, PO, Ervin marybel oral powder 2-18 Daily, X l for 17:04: 31 day, # Constantia reconstitut 00 527 gm, 0 ion Refill(s), Pharmacy: [id number], 165.1, cm, 10/25/22 6:05:00 CATH LAB RADIOLOGICAL TECHNOLOGIST, Height, 60.2, kg, 10/25/22 6:05:00 CATH LAB RADIOLOGICAL TECHNOLOGIST, Weight lactulose 2021-11 Yes 20 gm = 30 Me moria 10 g/15 mL 2-18 mL, PO, l oral syrup 17:04: BID, PRN Her feng 00 constipati on, X 30 day, # 1,000 mL, 0 Refill(s), Pharmacy: [id number], 165.1, cm, 10/25/22 6:05:00 CATH LAB RADIOLOGICAL TECHNOLOGIST, Height, 60.2, kg, 10/25/22 6:05:00 CATH LAB RADIOLOGICAL TECHNOLOGIST, Weight docusate 2021-11 Yes 100 mg = 1 Mem oria sodium 100 2-18 cap, PO, l mg oral 17:04: BID, PRN Johnny n capsule 00 constip, # 60 cap, 0 Refill(s), Pharmacy: [id number], 165.1, cm, 10/25/22 6:05:00 CATH LAB RADIOLOGICAL TECHNOLOGIST, Height, 60.2, kg, 10/25/22 6:05:00 CATH LAB RADIOLOGICAL TECHNOLOGIST, Weight pantoprazol 2021-11 Yes 40 mg = 1 M emoria e 40 mg 2-18 tab, PO, l oral 17:04: BID, # 60 Syed enteric 00 tab, 0 coated Refill(s), tablet Pharmacy: [id number], 165.1, cm, 10/25/22 6:05:00 CATH LAB RADIOLOGICAL TECHNOLOGIST, Height, 60.2, kg, 10/25/22 6:05:00 CATH LAB RADIOLOGICAL TECHNOLOGIST, Weight MiraLax 2021-11 Yes 17 gm, PO, Ervin marybel oral powder 2-18 Daily, X l for 17:: 31 day, # Syed reconstitut 00 527 gm, 0 ion Refill(s), Pharmacy: [id number], 165.1, cm, 10/25/22 6:05:00 CATH LAB RADIOLOGICAL TECHNOLOGIST, Height, 60.2, kg, 10/25/22 6:05:00 CATH LAB RADIOLOGICAL TECHNOLOGIST, Weight lactulose 2021-11 Yes 20 gm = 30 Me moria 10 g/15 mL 2-18 mL, PO, l oral syrup 17:04: BID, PRN Her feng 00 constipati on, X 30 day, # 1,000 mL, 0 Refill(s), Pharmacy: [id number], 165.1, cm, 10/25/22 6:05:00 CATH LAB RADIOLOGICAL TECHNOLOGIST, Height, 60.2, kg, 10/25/22 6:05:00 CATH LAB RADIOLOGICAL TECHNOLOGIST, Weight docusate 2021-11 Yes 100 mg = 1 Mem oria sodium 100 2-18 cap, PO, l mg oral 17:04: BID, PRN Johnny n capsule 00 constip, # 60 cap, 0 Refill(s), Pharmacy: [id number], 165.1, cm, 10/25/22 6:05:00 CATH LAB RADIOLOGICAL TECHNOLOGIST, Height, 60.2, kg, 10/25/22 6:05:00 CATH LAB RADIOLOGICAL TECHNOLOGIST, Weight pantoprazol 2021-11 Yes 40 mg = 1 M emoria e 40 mg 2-18 tab, PO, l oral 17:04: BID, # 60 Constantia enteric 00 tab, 0 coated Refill(s), tablet Pharmacy: [id number], 165.1, cm, 10/25/22 6:05:00 CATH LAB RADIOLOGICAL TECHNOLOGIST, Height, 60.2, kg, 10/25/22 6:05:00 CATH LAB RADIOLOGICAL TECHNOLOGIST, Weight MiraLax 2021-11 Yes 17 gm, PO, Ervin marybel oral powder 2-18 Daily, X l for 17:04: 31 day, # Constantia reconstitut 00 527 gm, 0 ion Refill(s), Pharmacy: [id number], 165.1, cm, 10/25/22 6:05:00 CATH LAB RADIOLOGICAL TECHNOLOGIST, Height, 60.2, kg, 10/25/22 6:05:00 CATH LAB RADIOLOGICAL TECHNOLOGIST, Weight lactulose 2021-11 Yes 20 gm = 30 Me moria 10 g/15 mL 2-18 mL, PO, l oral syrup 17:04: BID, PRN Her feng 00 constipati on, X 30 day, # 1,000 mL, 0 Refill(s), Pharmacy: [id number], 165.1, cm, 10/25/22 6:05:00 CATH LAB RADIOLOGICAL TECHNOLOGIST, Height, 60.2, kg, 10/25/22 6:05:00 CATH LAB RADIOLOGICAL TECHNOLOGIST, Weight docusate 2021-11 Yes 100 mg = 1 Mem oria sodium 100 2-18 cap, PO, l mg oral 17:04: BID, PRN Johnny n capsule 00 constip, # 60 cap, 0 Refill(s), Pharmacy: [id number], 165.1, cm, 10/25/22 6:05:00 CATH LAB RADIOLOGICAL TECHNOLOGIST, Height, 60.2, kg, 10/25/22 6:05:00 CATH LAB RADIOLOGICAL TECHNOLOGIST, Weight pantoprazol 2021-11 Yes 40 mg = 1 M emoria e 40 mg 2-18 tab, PO, l oral 17:04: BID, # 60 Syed enteric 00 tab, 0 coated Refill(s), tablet Pharmacy: [id number], 165.1, cm, 10/25/22 6:05:00 CATH LAB RADIOLOGICAL TECHNOLOGIST, Height, 60.2, kg, 10/25/22 6:05:00 CATH LAB RADIOLOGICAL TECHNOLOGIST, Weight MiraLax 2021-11 Yes 17 gm, PO, Ervin marybel oral powder 2-18 Daily, X l for 17:04: 31 day, # Syed reconstitut 00 527 gm, 0 ion Refill(s), Pharmacy: [id number], 165.1, cm, 10/25/22 6:05:00 CATH LAB RADIOLOGICAL TECHNOLOGIST, Height, 60.2, kg, 10/25/22 6:05:00 CATH LAB RADIOLOGICAL TECHNOLOGIST, Weight lactulose 2021-11 Yes 20 gm = 30 Me moria 10 g/15 mL 2-18 mL, PO, l oral syrup 17:04: BID, PRN Her feng 00 constipati on, X 30 day, # 1,000 mL, 0 Refill(s), Pharmacy: [id number], 165.1, cm, 10/25/22 6:05:00 CATH LAB RADIOLOGICAL TECHNOLOGIST, Height, 60.2, kg, 10/25/22 6:05:00 CATH LAB RADIOLOGICAL TECHNOLOGIST, Weight aspirin 81 2021-11 Yes 81 mg = 1 Me moria mg tablet, 2-18 tab, PO, l enteric 17:03: Daily, If Allyn nn coated 00 no evidence of GI bleed, aspirin can be resumed on 10/29/2022 , # 30 tab, 1 Refill(s), Pharmacy: [id number], 165.1, cm, 10/25/22 6:05:00 CATH LAB RADIOLOGICAL TECHNOLOGIST, Height, 60.2, kg, 10/25/22 6:05:00 CATH LAB RADIOLOGICAL TECHNOLOGIST, Weight aspirin 81 2021-11 Yes 81 mg = 1 Me moria mg tablet, 2-18 tab, PO, l enteric 17:03: Daily, If Allyn nn coated 00 no evidence of GI bleed, aspirin can be resumed on 10/29/2022 , # 30 tab, 1 Refill(s), Pharmacy: [id number], 165.1, cm, 10/25/22 6:05:00 CATH LAB RADIOLOGICAL TECHNOLOGIST, Height, 60.2, kg, 10/25/22 6:05:00 CATH LAB RADIOLOGICAL TECHNOLOGIST, Weight aspirin 2021-11 Yes 81 mg = 1 Me moria mg tablet, 2-18 tab, PO, l enteric 17:03: Daily, If Allyn nn coated 00 no evidence of GI bleed, aspirin can be resumed on 10/29/2022 , # 30 tab, 1 Refill(s), Pharmacy: [id number], 165.1, cm, 10/25/22 6:05:00 CATH LAB RADIOLOGICAL TECHNOLOGIST, Height, 60.2, kg, 10/25/22 6:05:00 CATH LAB RADIOLOGICAL TECHNOLOGIST, Weight aspirin 2021-11 Yes 81 mg = 1 Me moria mg tablet, 2-18 tab, PO, l enteric 17:03: Daily, If Allyn nn coated 00 no evidence of GI bleed, aspirin can be resumed on 10/29/2022 , # 30 tab, 1 Refill(s), Pharmacy: [id number], 165.1, cm, 10/25/22 6:05:00 CATH LAB RADIOLOGICAL TECHNOLOGIST, Height, 60.2, kg, 10/25/22 6:05:00 CATH LAB RADIOLOGICAL TECHNOLOGIST, Weight aspirin 2021-11 Yes 81 mg = 1 Me moria mg tablet, 2-18 tab, PO, l enteric 17:03: Daily, If Allyn nn coated 00 no evidence of GI bleed, aspirin can be resumed on 10/29/2022 , # 30 tab, 1 Refill(s), Pharmacy: [id number], 165.1, cm, 10/25/22 6:05:00 CATH LAB RADIOLOGICAL TECHNOLOGIST, Height, 60.2, kg, 10/25/22 6:05:00 CATH LAB RADIOLOGICAL TECHNOLOGIST, Weight aspirin 2021-11 Yes 81 mg = 1 Me moria mg tablet, 2-18 tab, PO, l enteric 17:03: Daily, If Allyn nn coated 00 no evidence of GI bleed, aspirin can be resumed on 10/29/2022 , # 30 tab, 1 Refill(s), Pharmacy: [facility] #[id number], 165.1, cm, 10/25/22 6:05:00 CATH LAB RADIOLOGICAL TECHNOLOGIST, Height, 60.2, kg, 10/25/22 6:05:00 CATH LAB RADIOLOGICAL TECHNOLOGIST, Weight aspirin 2021-11 Yes 81 mg = 1 Me moria mg tablet, 2-18 tab, PO, l enteric 17:03: Daily, If Allyn nn coated 00 no evidence of GI bleed, aspirin can be resumed on 10/29/2022 , # 30 tab, 1 Refill(s), Pharmacy: [id number], 165.1, cm, 10/25/22 6:05:00 CATH LAB RADIOLOGICAL TECHNOLOGIST, Height, 60.2, kg, 10/25/22 6:05:00 CATH LAB RADIOLOGICAL TECHNOLOGIST, Weight aspirin 2021-11 Yes 81 mg = 1 Me moria mg tablet, 2-18 tab, PO, l enteric 17:03: Daily, If Allyn nn coated 00 no evidence of GI bleed, aspirin can be resumed on 10/29/2022 , # 30 tab, 1 Refill(s), Pharmacy: [id number], 165.1, cm, 10/25/22 6:05:00 CATH LAB RADIOLOGICAL TECHNOLOGIST, Height, 60.2, kg, 10/25/22 6:05:00 CATH LAB RADIOLOGICAL TECHNOLOGIST, Weight aspirin 2021-11 Yes 81 mg = 1 Me moria mg tablet, 2-18 tab, PO, l enteric 17:03: Daily, If Allyn nn coated 00 no evidence of GI bleed, aspirin can be resumed on 10/29/2022 , # 30 tab, 1 Refill(s), Pharmacy: [id number], 165.1, cm, 10/25/22 6:05:00 CATH LAB RADIOLOGICAL TECHNOLOGIST, Height, 60.2, kg, 10/25/22 6:05:00 CATH LAB RADIOLOGICAL TECHNOLOGIST, Weight aspirin 81 2021-11 Yes 81 mg = 1 Me moria mg tablet, 2-18 tab, PO, l enteric 17:03: Daily, If Allyn nn coated 00 no evidence of GI bleed, aspirin can be resumed on 10/29/2022 , # 30 tab, 1 Refill(s), Pharmacy: [id number], 165.1, cm, 10/25/22 6:05:00 CATH LAB RADIOLOGICAL TECHNOLOGIST, Height, 60.2, kg, 10/25/22 6:05:00 CATH LAB RADIOLOGICAL TECHNOLOGIST, Weight aspirin 81 2021-11 Yes 81 mg = 1 Me moria mg tablet, 2-18 tab, PO, l enteric 17:03: Daily, If Allyn nn coated 00 no evidence of GI bleed, aspirin can be resumed on 10/29/2022 , # 30 tab, 1 Refill(s), Pharmacy: [id number], 165.1, cm, 10/25/22 6:05:00 CATH LAB RADIOLOGICAL TECHNOLOGIST, Height, 60.2, kg, 10/25/22 6:05:00 CATH LAB RADIOLOGICAL TECHNOLOGIST, Weight apixaban 2021-11 Yes 2.5 mg = 1 Mem oria 2.5 mg oral 2-18 tab, PO, l tablet 17:02: Q12H, For Johnny n 00 Atrial Fibrillati on Hold Eliquis on 10/28/2022 , 10/29/2022 , 10/30/2022 . If by coming Saturday patient does not show any evidence of GI bleed, Eliquis/sa me dose can be resumed, # 60 tab, 1 Refill(s), [facility]: [facility] apixaban 2021-11 Yes 2.5 mg = 1 Mem oria 2.5 mg oral 2-18 tab, PO, l tablet 17:02: Q12H, For Johnny n 00 Atrial Fibrillati on Hold Eliquis on 10/28/2022 , 10/29/2022 , 10/30/2022 . If by coming Saturday patient does not show any evidence of GI bleed, Eliquis/sa me dose can be resumed, # 60 tab, 1 Refill(s), [facility]acy: [facility] apixaban 2021-11 Yes 2.5 mg = 1 Mem oria 2.5 mg oral 2-18 tab, PO, l tablet 17:02: Q12H, For Johnny n 00 Atrial Fibrillati on Hold Eliquis on 10/28/2022 , 10/29/2022 , 10/30/2022 . If by coming Saturday patient does not show any evidence of GI bleed, Eliquis/sa me dose can be resumed, # 60 tab, 1 Refill(s), Pharmacy: [facility]... apixaban 2021-11 Yes 2.5 mg = 1 Mem oria 2.5 mg oral 2-18 tab, PO, l tablet 17:02: Q12H, For Johnny n 00 Atrial Fibrillati on Hold Eliquis on 10/28/2022 , 10/29/2022 , 10/30/2022 . If by coming Saturday patient does not show any evidence of GI bleed, Eliquis/sa me dose can be resumed, # 60 tab, 1 Refill(s), [facility]: [facility] apixaban 2021-11 Yes 2.5 mg = 1 Mem oria 2.5 mg oral 2-18 tab, PO, l tablet 17:02: Q12H, For Johnny n 00 Atrial Fibrillati on Hold Eliquis on 10/28/2022 , 10/29/2022 , 10/30/2022 . If by coming Saturday patient does not show any evidence of GI bleed, Eliquis/sa me dose can be resumed, # 60 tab, 1 Refill(s), Pharmacy: [facility] apixaban 2021-11 Yes 2.5 mg = 1 Mem oria 2.5 mg oral 2-18 tab, PO, l tablet 17:02: Q12H, For Johnny n 00 Atrial Fibrillati on Hold Eliquis on 10/28/2022 , 10/29/2022 , 10/30/2022 . If by coming Saturday patient does not show any evidence of GI bleed, Eliquis/sa me dose can be resumed, # 60 tab, 1 Refill(s), Pharmacy: [facility]... apixaban 2021-11 Yes 2.5 mg = 1 Mem oria 2.5 mg oral 2-18 tab, PO, l tablet 17:02: Q12H, For Johnny n 00 Atrial Fibrillati on Hold Eliquis on 10/28/2022 , 10/29/2022 , 10/30/2022 . If by coming Saturday patient does not show any evidence of GI bleed, Eliquis/sa me dose can be resumed, # 60 tab, 1 Refill(s), Pharmacy: [facility]/pha... apixaban 2021-11 Yes 2.5 mg = 1 Mem oria 2.5 mg oral 2-18 tab, PO, l tablet 17:02: Q12H, For Johnny n 00 Atrial Fibrillati on Hold Eliquis on 10/28/2022 , 10/29/2022 , 10/30/2022 . If by coming Saturday patient does not show any evidence of GI bleed, Eliquis/sa me dose can be resumed, # 60 tab, 1 Refill(s), Pharmacy: [facility]... apixaban 2021-11 Yes 2.5 mg = 1 Mem oria 2.5 mg oral 2-18 tab, PO, l tablet 17:02: Q12H, For Johnny n 00 Atrial Fibrillati on Hold Eliquis on 10/28/2022 , 10/29/2022 , 10/30/2022 . If by coming Saturday patient does not show any evidence of GI bleed, Eliquis/sa me dose can be resumed, # 60 tab, 1 Refill(s), Pharmacy: [facility]... apixaban 2021-11 Yes 2.5 mg = 1 Mem oria 2.5 mg oral 2-18 tab, PO, l tablet 17:02: Q12H, For Johnny n 00 Atrial Fibrillati on Hold Eliquis on 10/28/2022 , 10/29/2022 , 10/30/2022 . If by coming Saturday patient does not show any evidence of GI bleed, Eliquis/sa me dose can be resumed, # 60 tab, 1 Refill(s), Pharmacy: [facility]/pha... apixaban 2021-11 Yes 2.5 mg = 1 Mem oria 2.5 mg oral 2-18 tab, PO, l tablet 17:02: Q12H, For Johnny n 00 Atrial Fibrillati on Hold Eliquis on 10/28/2022 , 10/29/2022 , 10/30/2022 . If by coming Saturday patient does not show any evidence of GI bleed, Eliquis/sa me dose can be resumed, # 60 tab, 1 Refill(s), Pharmacy: [facility]... Protonix 2021-11 No Notes: Memoria 2-17 Tablet l 14:53: should not Constantia 00 be chewed or crushed. (Same as: Protonix) Protonix 2021-11 No Notes: Memoria 2-17 Tablet l 14:53: should not Syed 00 be chewed or crushed. (Same as: Protonix) Protonix 2021-11 No Notes: Memoria 2-17 Tablet l 14:53: should not Constantia 00 be chewed or crushed. (Same as: Protonix) Protonix 2021-11 No Notes: Memoria 2-17 Tablet l 14:53: should not Constantia 00 be chewed or crushed. (Same as: Protonix) Protonix 2021-11 No Notes: Memoria 2-17 Tablet l 14:53: should not Constantia 00 be chewed or crushed. (Same as: Protonix) Protonix 2021-11 No Notes: Memoria 2-17 Tablet l 14:53: should not Constantia 00 be chewed or crushed. (Same as: Protonix) Protonix 2021-11 No Notes: Memoria 2-17 Tablet l 14:53: should not Constantia 00 be chewed or crushed. (Same as: Protonix) Protonix 2021-11 No Notes: Memoria 2-17 Tablet l 14:53: should not Syed 00 be chewed or crushed. (Same as: Protonix) Protonix 2021-11 No Notes: Memoria 2-17 Tablet l 14:53: should not Constantia 00 be chewed or crushed. (Same as: Protonix) Protonix 2021-11 No Notes: Memoria 2-17 Tablet l 14:53: should not Constantia 00 be chewed or crushed. (Same as: Protonix) Protonix 2021-11 No Notes: Memoria 2-17 Tablet l 14:53: should not Syed 00 be chewed or crushed. (Same as: Protonix) lidocaine 2021-11 No Route: IV, Me moria (ANES) 2-16 Drug form: l 22:50: INJ, ONCE, Stop date: 10/26/22 16:50:00 CATH LAB RADIOLOGICAL TECHNOLOGIST Amidate 2021-11 No Route: IV, Ervin marybel (ANES) 2-16 Drug form: l 22:50: INJ, ONCE, Stop date: 10/26/22 16:50:00 CATH LAB RADIOLOGICAL TECHNOLOGIST lidocaine 2021-11 No Route: IV, Me moria (ANES) 2-16 Drug form: l 22:50: INJ, ONCE, Stop date: 10/26/22 16:50:00 CATH LAB RADIOLOGICAL TECHNOLOGIST Amidate 2021-11 No Route: IV, Ervin marybel (ANES) 2-16 Drug form: l 22:50: INJ, ONCE, Stop date: 10/26/22 16:50:00 CATH LAB RADIOLOGICAL TECHNOLOGIST lidocaine 2021-11 No Route: IV, Me moria (ANES) 2-16 Drug form: l 22:50: INJ, ONCE, Stop date: 10/26/22 16:50:00 CATH LAB RADIOLOGICAL TECHNOLOGIST Amidate 2021-11 No Route: IV, Ervin marybel (ANES) 2-16 Drug form: l 22:50: INJ, ONCE, Stop date: 10/26/22 16:50:00 CATH LAB RADIOLOGICAL TECHNOLOGIST lidocaine 2021-11 No Route: IV, Me moria (ANES) 2-16 Drug form: l 22:50: INJ, ONCE, Stop date: 10/26/22 16:50:00 CATH LAB RADIOLOGICAL TECHNOLOGIST Amidate 2021-11 No Route: IV, Ervin marybel (ANES) 2-16 Drug form: l 22:50: INJ, ONCE, Stop date: 10/26/22 16:50:00 CATH LAB RADIOLOGICAL TECHNOLOGIST lidocaine 2021-11 No Route: IV, Me moria (ANES) 2-16 Drug form: l 22:50: INJ, ONCE, Stop date: 10/26/22 16:50:00 CATH LAB RADIOLOGICAL TECHNOLOGIST Amidate 2021-11 No Route: IV, Ervin marybel (ANES) 2-16 Drug form: l 22:50: INJ, ONCE, Stop date: 10/26/22 16:50:00 CATH LAB RADIOLOGICAL TECHNOLOGIST lidocaine 2021-11 No Route: IV, Me moria (ANES) 2-16 Drug form: l 22:50: INJ, ONCE, Stop date: 10/26/22 16:50:00 CATH LAB RADIOLOGICAL TECHNOLOGIST Amidate 2021-11 No Route: IV, Ervin marybel (ANES) 2-16 Drug form: l 22:50: INJ, ONCE, Stop date: 10/26/22 16:50:00 CATH LAB RADIOLOGICAL TECHNOLOGIST lidocaine 2021-11 No Route: IV, Me moria (ANES) 2-16 Drug form: l 22:50: INJ, ONCE, Stop date: 10/26/22 16:50:00 CATH LAB RADIOLOGICAL TECHNOLOGIST Amidate 2021-11 No Route: IV, Ervin marybel (ANES) 2-16 Drug form: l 22:50: INJ, ONCE, Stop date: 10/26/22 16:50:00 CATH LAB RADIOLOGICAL TECHNOLOGIST lidocaine 2021-11 No Route: IV, Me moria (ANES) 2-16 Drug form: l 22:50: INJ, ONCE, Stop date: 10/26/22 16:50:00 CATH LAB RADIOLOGICAL TECHNOLOGIST Amidate 2021-11 No Route: IV, Ervin marybel (ANES) 2-16 Drug form: l 22:50: INJ, ONCE, Stop date: 10/26/22 16:50:00 CATH LAB RADIOLOGICAL TECHNOLOGIST lidocaine 2021-11 No Route: IV, Me moria (ANES) 2-16 Drug form: l 22:50: INJ, ONCE, Stop date: 10/26/22 16:50:00 CATH LAB RADIOLOGICAL TECHNOLOGIST Amidate 2021-11 No Route: IV, Ervin marybel (ANES) 2-16 Drug form: l 22:50: INJ, ONCE, Stop date: 10/26/22 16:50:00 CATH LAB RADIOLOGICAL TECHNOLOGIST lidocaine 2021-11 No Route: IV, Me moria (ANES) 2-16 Drug form: l 22:50: INJ, ONCE, Stop date: 10/26/22 16:50:00 CATH LAB RADIOLOGICAL TECHNOLOGIST Amidate 2021-11 No Route: IV, Ervin marybel (ANES) 2-16 Drug form: l 22:50: INJ, ONCE, Stop date: 10/26/22 16:50:00 CATH LAB RADIOLOGICAL TECHNOLOGIST lidocaine 2021-11 No Route: IV, Me moria (ANES) 12-27 Drug form: l 22:50: INJ, ONCE, Stop date: 10/26/22 16:50:00 CATH LAB RADIOLOGICAL TECHNOLOGIST Amidate 2021-11 No Route: IV, Ervin marybel (ANES) 216 Drug form: l 22:50: INJ, ONCE, Stop date: 10/26/22 16:50:00 CATH LAB RADIOLOGICAL TECHNOLOGIST propofol 2021-11 No Route: IV, Mem oria (ANES) 10 12-27 Drug form: l mg 22:10: INJ, Start date: 10/26/22 16:10:00 CATH LAB RADIOLOGICAL TECHNOLOGIST, Stop date: 10/26/22 17:10:00 CATH LAB RADIOLOGICAL TECHNOLOGIST propofol 2021-11 No Route: IV, Mem oria (ANES) 10 12-27 Drug form: l mg 22:10: INJ, date: 10/26/22 16:10:00 CATH LAB RADIOLOGICAL TECHNOLOGIST, Stop date: 10/26/22 17:10:00 CATH LAB RADIOLOGICAL TECHNOLOGIST propofol 2021-11 No Route: IV, Mem oria (ANES) 10 12-27 Drug form: l mg 22:10: INJ, date: 10/26/22 16:10:00 CATH LAB RADIOLOGICAL TECHNOLOGIST, Stop date: 10/26/22 17:10:00 CATH LAB RADIOLOGICAL TECHNOLOGIST propofol 2021-11 No Route: IV, Mem oria (ANES) 10 12-27 Drug form: l mg 22:10: INJ, date: 10/26/22 16:10:00 CATH LAB RADIOLOGICAL TECHNOLOGIST, Stop date: 10/26/22 17:10:00 CATH LAB RADIOLOGICAL TECHNOLOGIST propofol 2021-11 No Route: IV, Mem oria (ANES) 10 16 Drug form: l mg 22:10: INJ, Start date: 10/26/22 16:10:00 CATH LAB RADIOLOGICAL TECHNOLOGIST, Stop date: 10/26/22 17:10:00 CATH LAB RADIOLOGICAL TECHNOLOGIST propofol 2021-11 No Route: IV, Mem oria (ANES) 10 2-16 Drug form: l mg 22:10: INJ, date: 10/26/22 16:10:00 CATH LAB RADIOLOGICAL TECHNOLOGIST, Stop date: 10/26/22 17:10:00 CATH LAB RADIOLOGICAL TECHNOLOGIST propofol 2021-11 No Route: IV, Mem oria (ANES) 10 2-16 Drug form: l mg 22:10: INJ, date: 10/26/22 16:10:00 CATH LAB RADIOLOGICAL TECHNOLOGIST, Stop date: 10/26/22 17:10:00 CATH LAB RADIOLOGICAL TECHNOLOGIST propofol 2021-11 No Route: IV, Mem oria (ANES) 10 12-27 Drug form: l mg 22:10: INJ, date: 10/26/22 16:10:00 CATH LAB RADIOLOGICAL TECHNOLOGIST, Stop date: 10/26/22 17:10:00 CATH LAB RADIOLOGICAL TECHNOLOGIST propofol 2021-11 No Route: IV, Mem oria (ANES) 10 12-27 Drug form: l mg 22:10: INJ, date: 10/26/22 16:10:00 CATH LAB RADIOLOGICAL TECHNOLOGIST, Stop date: 10/26/22 17:10:00 CATH LAB RADIOLOGICAL TECHNOLOGIST propofol 2021-11 No Route: IV, Mem oria (ANES) 10 12-27 Drug form: l mg 22:10: INJ, date: 10/26/22 16:10:00 CATH LAB RADIOLOGICAL TECHNOLOGIST, Stop date: 10/26/22 17:10:00 CATH LAB RADIOLOGICAL TECHNOLOGIST propofol 2021-11 No Route: IV, Mem oria (ANES) 10 12-27 Drug form: l mg 22:10: INJ, date: 10/26/22 16:10:00 CATH LAB RADIOLOGICAL TECHNOLOGIST, Stop date: 10/26/22 17:10:00 CATH LAB RADIOLOGICAL TECHNOLOGIST Bactroban 2021-11 No 1 appl, Memor ia 2% nasal 12-27 Route: l ointment 15:00: NASAL, Constantia w/applicato 00 Q12H, Drug r form: OINT, Start date: 10/26/22 9:00:00 CATH LAB RADIOLOGICAL TECHNOLOGIST, Duration: 5 day, Stop date: 10/30/22 21:00:00 CATH LAB RADIOLOGICAL TECHNOLOGIST, MRSA decoloniza tion, 0 Bactroban 2021-11 No 1 appl, Memor ia 2% nasal 12-27 Route: l ointment 15:00: NASAL, Syed w/applicato 00 Q12H, Drug r form: OINT, Start date: 10/26/22 9:00:00 CATH LAB RADIOLOGICAL TECHNOLOGIST, Duration: 5 day, Stop date: 10/30/22 21:00:00 CATH LAB RADIOLOGICAL TECHNOLOGIST, MRSA decoloniza tion, 0 Bactroban 2021-11 No 1 appl, Memor ia 2% nasal 2-16 Route: l ointment 15:00: NASAL, Syed w/applicato 00 Q12H, Drug r form: OINT, Start date: 10/26/22 9:00:00 CATH LAB RADIOLOGICAL TECHNOLOGIST, Duration: 5 day, Stop date: 10/30/22 21:00:00 CATH LAB RADIOLOGICAL TECHNOLOGIST, MRSA decoloniza tion, 0 Bactroban 2021-11 No 1 appl, Memor ia 2% nasal 2-16 Route: l ointment 15:00: NASAL, Constantia w/applicato 00 Q12H, Drug r form: OINT, Start date: 10/26/22 9:00:00 CATH LAB RADIOLOGICAL TECHNOLOGIST, Duration: 5 day, Stop date: 10/30/22 21:00:00 CATH LAB RADIOLOGICAL TECHNOLOGIST, MRSA decoloniza tion, 0 Bactroban 2021-11 No 1 appl, Memor ia 2% nasal 2-16 Route: l ointment 15:00: NASAL, Constantia w/applicato 00 Q12H, Drug r form: OINT, Start date: 10/26/22 9:00:00 CATH LAB RADIOLOGICAL TECHNOLOGIST, Duration: 5 day, Stop date: 10/30/22 21:00:00 CATH LAB RADIOLOGICAL TECHNOLOGIST, MRSA decoloniza tion, 0 Bactroban 2021-11 No 1 appl, Memor ia 2% nasal 2-16 Route: l ointment 15:00: NASAL, Syed w/applicato 00 Q12H, Drug r form: OINT, Start date: 10/26/22 9:00:00 CATH LAB RADIOLOGICAL TECHNOLOGIST, Duration: 5 day, Stop date: 10/30/22 21:00:00 CATH LAB RADIOLOGICAL TECHNOLOGIST, MRSA decoloniza tion, 0 Bactroban 2021-11 No 1 appl, Memor ia 2% nasal 2-16 Route: l ointment 15:00: NASAL, Constantia w/applicato 00 Q12H, Drug r form: OINT, Start date: 10/26/22 9:00:00 CATH LAB RADIOLOGICAL TECHNOLOGIST, Duration: 5 day, Stop date: 10/30/22 21:00:00 CATH LAB RADIOLOGICAL TECHNOLOGIST, MRSA decoloniza tion, 0 Bactroban 2021-11 No 1 appl, Memor ia 2% nasal 2-16 Route: l ointment 15:00: NASAL, Syed w/applicato 00 Q12H, Drug r form: OINT, Start date: 10/26/22 9:00:00 CATH LAB RADIOLOGICAL TECHNOLOGIST, Duration: 5 day, Stop date: 10/30/22 21:00:00 CATH LAB RADIOLOGICAL TECHNOLOGIST, MRSA decoloniza tion, 0 Bactroban 2021-11 No 1 appl, Memor ia 2% nasal 2-16 Route: l ointment 15:00: NASAL, Syed w/applicato 00 Q12H, Drug r form: OINT, Start date: 10/26/22 9:00:00 CATH LAB RADIOLOGICAL TECHNOLOGIST, Duration: 5 day, Stop date: 10/30/22 21:00:00 CATH LAB RADIOLOGICAL TECHNOLOGIST, MRSA decoloniza tion, 0 Bactroban 2021-11 No 1 appl, Memor ia 2% nasal 2-16 Route: l ointment 15:00: NASAL, Constantia w/applicato 00 Q12H, Drug r form: OINT, Start date: 10/26/22 9:00:00 CATH LAB RADIOLOGICAL TECHNOLOGIST, Duration: 5 day, Stop date: 10/30/22 21:00:00 CATH LAB RADIOLOGICAL TECHNOLOGIST, MRSA decoloniza tion, 0 Bactroban 2021-11 No 1 appl, Memor ia 2% nasal 2-16 Route: l ointment 15:00: NASAL, Constantia w/applicato 00 Q12H, Drug r form: OINT, Start date: 10/26/22 9:00:00 CATH LAB RADIOLOGICAL TECHNOLOGIST, Duration: 5 day, Stop date: 10/30/22 21:00:00 CATH LAB RADIOLOGICAL TECHNOLOGIST, MRSA decoloniza tion, 0 Synthroid 2021-11 No Notes: Memori a 2-16 Take 1 l 12:30: hour Syed 00 before or 2 hours after meal; Enteral feeds may interefere with the absorption of this medication . (Same as:Levothr oid, Synthroid) Synthroid 2021-11 No Notes: Memori a 2-16 Take 1 l 12:30: hour Syed 00 before or 2 hours after meal; Enteral feeds may interefere with the absorption of this medication . (Same as:Levothr oid, Synthroid) Synthroid 2021-11 No Notes: Memori a 2-16 Take 1 l 12:30: hour Constantia 00 before or 2 hours after meal; Enteral feeds may interefere with the absorption of this medication . (Same as:Levothr oid, Synthroid) Synthroid 2021-11 No Notes: Memori a 2-16 Take 1 l 12:30: hour Constantia 00 before or 2 hours after meal; Enteral feeds may interefere with the absorption of this medication . (Same as:Levothr oid, Synthroid) Synthroid 2021-11 No Notes: Memori a 2-16 Take 1 l 12:30: hour Syed 00 before or 2 hours after meal; Enteral feeds may interefere with the absorption of this medication . (Same as:Levothr oid, Synthroid) Synthroid 2021-11 No Notes: Memori a 2-16 Take 1 l 12:30: hour Syed 00 before or 2 hours after meal; Enteral feeds may interefere with the absorption of this medication . (Same as:Levothr oid, Synthroid) Synthroid 2021-11 No Notes: Memori a 2-16 Take 1 l 12:30: hour Syed 00 before or 2 hours after meal; Enteral feeds may interefere with the absorption of this medication . (Same as:Levothr oid, Synthroid) Synthroid 2021-11 No Notes: Memori a 2-16 Take 1 l 12:30: hour Syed 00 before or 2 hours after meal; Enteral feeds may interefere with the absorption of this medication . (Same as:Levothr oid, Synthroid) Synthroid 2021-11 No Notes: Memori a 2-16 Take 1 l 12:30: hour Constantia 00 before or 2 hours after meal; Enteral feeds may interefere with the absorption of this medication . (Same as:Levothr oid, Synthroid) Synthroid 2021-11 No Notes: Memori a 2-16 Take 1 l 12:30: hour Constantia 00 before or 2 hours after meal; Enteral feeds may interefere with the absorption of this medication . (Same as:Levothr oid, Synthroid) Synthroid 2021-11 No Notes: Memori a 2-16 Take 1 l 12:30: hour Syed 00 before or 2 hours after meal; Enteral feeds may interefere with the absorption of this medication . (Same as:Levothr oid, Synthroid) LR IV 250 2021-11 No 250 mL, Memor ia mL 2-16 Rate: 250 l 04:58: ml/hr, Constantia 00 Infuse over: 1 hr, Route: IV, Dosing Weight 60.2 kg, Total Volume: 250, Start date: 10/25/22 22:58:00 CATH LAB RADIOLOGICAL TECHNOLOGIST, Duration: 1 doses or times, Stop date: 10/25/22 23:57:00 CATH LAB RADIOLOGICAL TECHNOLOGIST, BSA: 1.67 m2, 0 LR IV 250 2021-11 No 250 mL, Memor ia mL 2-16 Rate: 250 l 04:58: ml/hr, Syed 00 Infuse over: 1 hr, Route: IV, Dosing Weight 60.2 kg, Total Volume: 250, Start date: 10/25/22 22:58:00 CATH LAB RADIOLOGICAL TECHNOLOGIST, Duration: 1 doses or times, Stop date: 10/25/22 23:57:00 CATH LAB RADIOLOGICAL TECHNOLOGIST, BSA: 1.67 m2, 0 LR IV 250 2021-11 No 250 mL, Memor ia mL 2-16 Rate: 250 l 04:58: ml/hr, Syed 00 Infuse over: 1 hr, Route: IV, Dosing Weight 60.2 kg, Total Volume: 250, Start date: 10/25/22 22:58:00 CATH LAB RADIOLOGICAL TECHNOLOGIST, Duration: 1 doses or times, Stop date: 10/25/22 23:57:00 CATH LAB RADIOLOGICAL TECHNOLOGIST, BSA: 1.67 m2, 0 LR IV 250 2021-11 No 250 mL, Memor ia mL 2-16 Rate: 250 l 04:58: ml/hr, Constantia 00 Infuse over: 1 hr, Route: IV, Dosing Weight 60.2 kg, Total Volume: 250, Start date: 10/25/22 22:58:00 CATH LAB RADIOLOGICAL TECHNOLOGIST, Duration: 1 doses or times, Stop date: 10/25/22 23:57:00 CATH LAB RADIOLOGICAL TECHNOLOGIST, BSA: 1.67 m2, 0 LR IV 250 2021-11 No 250 mL, Memor ia mL 2-16 Rate: 250 l 04:58: ml/hr, Constantia 00 Infuse over: 1 hr, Route: IV, Dosing Weight 60.2 kg, Total Volume: 250, Start date: 10/25/22 22:58:00 CATH LAB RADIOLOGICAL TECHNOLOGIST, Duration: 1 doses or times, Stop date: 10/25/22 23:57:00 CATH LAB RADIOLOGICAL TECHNOLOGIST, BSA: 1.67 m2, 0 LR IV 250 2021-11 No 250 mL, Memor ia mL 2-16 Rate: 250 l 04:58: ml/hr, Constantia 00 Infuse over: 1 hr, Route: IV, Dosing Weight 60.2 kg, Total Volume: 250, Start date: 10/25/22 22:58:00 CATH LAB RADIOLOGICAL TECHNOLOGIST, Duration: 1 doses or times, Stop date: 10/25/22 23:57:00 CATH LAB RADIOLOGICAL TECHNOLOGIST, BSA: 1.67 m2, 0 LR IV 250 2021-11 No 250 mL, Memor ia mL 2-16 Rate: 250 l 04:58: ml/hr, Constantia 00 Infuse over: 1 hr, Route: IV, Dosing Weight 60.2 kg, Total Volume: 250, Start date: 10/25/22 22:58:00 CATH LAB RADIOLOGICAL TECHNOLOGIST, Duration: 1 doses or times, Stop date: 10/25/22 23:57:00 CATH LAB RADIOLOGICAL TECHNOLOGIST, BSA: 1.67 m2, 0 LR IV 250 2021-11 No 250 mL, Memor ia mL 2-16 Rate: 250 l 04:58: ml/hr, Constantia 00 Infuse over: 1 hr, Route: IV, Dosing Weight 60.2 kg, Total Volume: 250, Start date: 10/25/22 22:58:00 CATH LAB RADIOLOGICAL TECHNOLOGIST, Duration: 1 doses or times, Stop date: 10/25/22 23:57:00 CATH LAB RADIOLOGICAL TECHNOLOGIST, BSA: 1.67 m2, 0 LR IV 250 2021-11 No 250 mL, Memor ia mL 2-16 Rate: 250 l 04:58: ml/hr, Constantia 00 Infuse over: 1 hr, Route: IV, Dosing Weight 60.2 kg, Total Volume: 250, Start date: 10/25/22 22:58:00 CATH LAB RADIOLOGICAL TECHNOLOGIST, Duration: 1 doses or times, Stop date: 10/25/22 23:57:00 CATH LAB RADIOLOGICAL TECHNOLOGIST, BSA: 1.67 m2, 0 LR IV 250 2021-11 No 250 mL, Memor ia mL 2-16 Rate: 250 l 04:58: ml/hr, Syed 00 Infuse over: 1 hr, Route: IV, Dosing Weight 60.2 kg, Total Volume: 250, Start date: 10/25/22 22:58:00 CATH LAB RADIOLOGICAL TECHNOLOGIST, Duration: 1 doses or times, Stop date: 10/25/22 23:57:00 CATH LAB RADIOLOGICAL TECHNOLOGIST, BSA: 1.67 m2, 0 LR IV 250 2021-11 No 250 mL, Memor ia mL 2-16 Rate: 250 l 04:58: ml/hr, Infuse over: 1 hr, Route: IV, Dosing Weight 60.2 kg, Total Volume: 250, Start date: 10/25/22 22:58:00 CATH LAB RADIOLOGICAL TECHNOLOGIST, Duration: 1 doses or times, Stop date: 10/25/22 23:57:00 CATH LAB RADIOLOGICAL TECHNOLOGIST, BSA: 1.67 m2, 0 atorvastati 2021-11 No Notes: Ervin marybel n 2-16 (Same As: l 03:00: Lipitor) gabapentin 2021-11 No Notes: Memor ia 100 mg oral 2-16 (Same as: l capsule 03:00: Neurontin) atorvastati 2021-11 No Notes: Ervin marybel n 2-16 (Same As: l 03:00: Lipitor) gabapentin 2021-11 No Notes: Memor ia 100 mg oral 2-16 (Same as: l capsule 03:00: Neurontin) atorvastati 2021-11 No Notes: Ervin marybel n 2-16 (Same As: l 03:00: Lipitor) gabapentin 2021-11 No Notes: Memor ia 100 mg oral 2-16 (Same as: l capsule 03:00: Neurontin) atorvastati 2021-11 No Notes: Ervin marybel n 2-16 (Same As: l 03:00: Lipitor) gabapentin 2021-11 No Notes: Memor ia 100 mg oral 2-16 (Same as: l capsule 03:00: Neurontin) atorvastati 2021-11 No Notes: Ervin marybel n 2-16 (Same As: l 03:00: Lipitor) gabapentin 2021-11 No Notes: Memor ia 100 mg oral 2-16 (Same as: l capsule 03:00: Neurontin) atorvastati 2021-11 No Notes: Ervin marybel n 2-16 (Same As: l 03:00: Lipitor) gabapentin 2021-11 No Notes: Memor ia 100 mg oral 2-16 (Same as: l capsule 03:00: Neurontin) atorvastati 2021-11 No Notes: Ervin marybel n 2-16 (Same As: l 03:00: Lipitor) gabapentin 2021-11 No Notes: Memor ia 100 mg oral 2-16 (Same as: l capsule 03:00: Neurontin) atorvastati 2021-11 No Notes: Ervin marybel n 2-16 (Same As: l 03:00: Lipitor) gabapentin 2021-11 No Notes: Memor ia 100 mg oral 2-16 (Same as: l capsule 03:00: Neurontin) atorvastati 2021-11 No Notes: Ervin marybel n 2-16 (Same As: l 03:00: Lipitor) gabapentin 2021-11 No Notes: Memor ia 100 mg oral 2-16 (Same as: l capsule 03:00: Neurontin) atorvastati 2021-11 No Notes: Ervin marybel n 2-16 (Same As: l 03:00: Lipitor) gabapentin 2021-11 No Notes: Memor ia 100 mg oral 2-16 (Same as: l capsule 03:00: Neurontin) atorvastati 2021-11 No Notes: Ervin marybel n 2-16 (Same As: l 03:00: Lipitor) gabapentin 2021-11 No Notes: Memor ia 100 mg oral 2-16 (Same as: l capsule 03:00: Neurontin) polyethylen 2021-11 No Notes: Ervin marybel e glycol 2-15 (polyethyl l 3350 with 23:00: yahir glycol He rmann electrolyte 00 electrolyt s e solution 4 Liter bottle) (Same as: Golytely, Colyte) polyethylen 2021-11 No Notes: Ervin marybel e glycol 2-15 (polyethyl l 3350 with 23:00: yahir glycol He rmann electrolyte 00 electrolyt s e solution 4 Liter bottle) (Same as: Golytely, Colyte) polyethylen 2021-11 No Notes: Ervin marybel e glycol 2-15 (polyethyl l 3350 with 23:00: yahir glycol He rmann electrolyte 00 electrolyt s e solution 4 Liter bottle) (Same as: Golytely, Colyte) polyethylen 2021-11 No Notes: Ervin marybel e glycol 2-15 (polyethyl l 3350 with 23:00: yahir glycol He rmann electrolyte 00 electrolyt s e solution 4 Liter bottle) (Same as: Golytely, Colyte) polyethylen 2021-11 No Notes: Ervin marybel e glycol 2-15 (polyethyl l 3350 with 23:00: yahir glycol He rmann electrolyte 00 electrolyt s e solution 4 Liter bottle) (Same as: Golytely, Colyte) polyethylen 2021-11 No Notes: Ervin marybel e glycol 2-15 (polyethyl l 3350 with 23:00: yahir glycol He rmann electrolyte 00 electrolyt s e solution 4 Liter bottle) (Same as: Golytely, Colyte) polyethylen 2021-11 No Notes: Ervin marybel e glycol 2-15 (polyethyl l 3350 with 23:00: yahir glycol He rmann electrolyte 00 electrolyt s e solution 4 Liter bottle) (Same as: Golytely, Colyte) polyethylen 2021-11 No Notes: Ervin marybel e glycol 2-15 (polyethyl l 3350 with 23:00: yahir glycol He rmann electrolyte 00 electrolyt s e solution 4 Liter bottle) (Same as: Golytely, Colyte) polyethylen 2021-11 No Notes: Ervin marybel e glycol 2-15 (polyethyl l 3350 with 23:00: yahir glycol He rmann electrolyte 00 electrolyt s e solution 4 Liter bottle) (Same as: Golytely, Colyte) polyethylen 2021-11 No Notes: Ervin marybel e glycol 2-15 (polyethyl l 3350 with 23:00: yahir glycol He rmann electrolyte 00 electrolyt s e solution 4 Liter bottle) (Same as: Golytely, Colyte) polyethylen 2021-11 No Notes: Ervin marybel e glycol 2-15 (polyethyl l 3350 with 23:00: yahir glycol He rmann electrolyte 00 electrolyt s e solution 4 Liter bottle) (Same as: Golytely, Colyte) levETIRAcet 2021-11 No Notes: Ervin marybel am 2-15 (Same l 17:49: as:Keppra) Syed 00 levETIRAcet 2021-11 No Notes: Ervin marybel am 2-15 (Same l 17:49: as:Keppra) Syed 00 levETIRAcet 2021-11 No Notes: Ervin marybel am 2-15 (Same l 17:49: as:Keppra) levETIRAcet 2021-11 No Notes: Ervin marybel am 2-15 (Same l 17:49: as:Keppra) levETIRAcet 2021-11 No Notes: Ervin marybel am 2-15 (Same l 17:49: as:Keppra) levETIRAcet 2021-11 No Notes: Ervin marybel am 2-15 (Same l 17:49: as:Keppra) levETIRAcet 2021-11 No Notes: Ervin marybel am 2-15 (Same l 17:49: as:Keppra) levETIRAcet 2021-11 No Notes: Ervin marybel am 2-15 (Same l 17:49: as:Keppra) levETIRAcet 2021-11 No Notes: Ervin marybel am 2-15 (Same l 17:49: as:Keppra) levETIRAcet 2021-11 No Notes: Ervin marybel am 2-15 (Same l 17:49: as:Keppra) levETIRAcet 2021-11 No Notes: Ervin marybel am 2-15 (Same l 17:49: as:Keppra) famotidine 2021-11 No 20 mg, Memor ia 2-15 Route: l 15:00: IVP, Q12H, Dosing Weight 60.2, kg, Start date: 10/25/22 9:00:00 CATH LAB RADIOLOGICAL TECHNOLOGIST, Duration: 30 day, Stop date: 11/23/22 21:00:00 CATH LAB RADIOLOGICAL TECHNOLOGIST Saline 2021-11 No Notes: Memoria Flush 0.9% 2-15 (Same as: l 15:00: BD Posiflush) AMIODarone 2021-11 No Notes: Memor ia 2-15 (Same as: l 15:00: Cordarone) famotidine 2021-11 No 20 mg, Memor ia 2-15 Route: l 15:00: IVP, Q12H, Dosing Weight 60.2, kg, Start date: 10/25/22 9:00:00 CATH LAB RADIOLOGICAL TECHNOLOGIST, Duration: 30 day, Stop date: 11/23/22 21:00:00 CATH LAB RADIOLOGICAL TECHNOLOGIST Saline 2021-11 No Notes: Memoria Flush 0.9% 2-15 (Same as: l 15:00: BD Constantia Posiflush) AMIODarone 2021-11 No Notes: Memor ia 2-15 (Same as: l 15:00: Cordarone) famotidine 2021-11 No 20 mg, Memor ia 2-15 Route: l 15:00: IVP, Q12H, Dosing Weight 60.2, kg, Start date: 10/25/22 9:00:00 CATH LAB RADIOLOGICAL TECHNOLOGIST, Duration: 30 day, Stop date: 11/23/22 21:00:00 CATH LAB RADIOLOGICAL TECHNOLOGIST Saline 2021-11 No Notes: Memoria Flush 0.9% 2-15 (Same as: l 15:00: BD Syed Posiflush) AMIODarone 2021-11 No Notes: Memor ia 2-15 (Same as: l 15:00: Cordarone) famotidine 2021-11 No 20 mg, Memor ia 2-15 Route: l 15:00: IVP, Q12H, Dosing Weight 60.2, kg, Start date: 10/25/22 9:00:00 CATH LAB RADIOLOGICAL TECHNOLOGIST, Duration: 30 day, Stop date: 11/23/22 21:00:00 CATH LAB RADIOLOGICAL TECHNOLOGIST Saline 2021-11 No Notes: Memoria Flush 0.9% 2-15 (Same as: l 15:00: BD Syed 00 Posiflush) AMIODarone 2021-11 No Notes: Memor ia 2-15 (Same as: l 15:00: Cordarone) famotidine 2021-11 No 20 mg, Memor ia 2-15 Route: l 15:00: IVP, Q12H, Dosing Weight 60.2, kg, Start date: 10/25/22 9:00:00 CATH LAB RADIOLOGICAL TECHNOLOGIST, Duration: 30 day, Stop date: 11/23/22 21:00:00 CATH LAB RADIOLOGICAL TECHNOLOGIST Saline 2021-11 No Notes: Memoria Flush 0.9% 2-15 (Same as: l 15:00: BD Syed 00 Posiflush) AMIODarone 2021-11 No Notes: Memor ia 2-15 (Same as: l 15:00: Cordarone) famotidine 2021-11 No 20 mg, Memor ia 2-15 Route: l 15:00: IVP, Q12H, Syed Dosing Weight 60.2, kg, Start date: 10/25/22 9:00:00 CATH LAB RADIOLOGICAL TECHNOLOGIST, Duration: 30 day, Stop date: 11/23/22 21:00:00 CATH LAB RADIOLOGICAL TECHNOLOGIST Saline 2021-11 No Notes: Memoria Flush 0.9% 2-15 (Same as: l 15:00: BD Syed Posiflush) AMIODarone 2021-11 No Notes: Memor ia 2-15 (Same as: l 15:00: Cordarone) famotidine 2021-11 No 20 mg, Memor ia 2-15 Route: l 15:00: IVP, Q12H, Dosing Weight 60.2, kg, Start date: 10/25/22 9:00:00 CATH LAB RADIOLOGICAL TECHNOLOGIST, Duration: 30 day, Stop date: 11/23/22 21:00:00 CATH LAB RADIOLOGICAL TECHNOLOGIST Saline 2021-11 No Notes: Memoria Flush 0.9% 2-15 (Same as: l 15:00: BD Syde Posiflush) AMIODarone 2021-11 No Notes: Memor ia 2-15 (Same as: l 15:00: Cordarone) famotidine 2021-11 No 20 mg, Memor ia 2-15 Route: l 15:00: IVP, Q12H, Dosing Weight 60.2, kg, Start date: 10/25/22 9:00:00 CATH LAB RADIOLOGICAL TECHNOLOGIST, Duration: 30 day, Stop date: 11/23/22 21:00:00 CATH LAB RADIOLOGICAL TECHNOLOGIST Saline 2021-11 No Notes: Memoria Flush 0.9% 2-15 (Same as: l 15:00: BD Syed Posiflush) AMIODarone 2021-11 No Notes: Memor ia 2-15 (Same as: l 15:00: Cordarone) famotidine 2021-11 No 20 mg, Memor ia 2-15 Route: l 15:00: IVP, Q12H, Constantia 00 Dosing Weight 60.2, kg, Start date: 10/25/22 9:00:00 CATH LAB RADIOLOGICAL TECHNOLOGIST, Duration: 30 day, Stop date: 11/23/22 21:00:00 CATH LAB RADIOLOGICAL TECHNOLOGIST Saline 2021-11 No Notes: Memoria Flush 0.9% 2-15 (Same as: l 15:00: BD Syed 00 Posiflush) AMIODarone 2021-11 No Notes: Memor ia 2-15 (Same as: l 15:00: Cordarone) famotidine 2021-11 No 20 mg, Memor ia 2-15 Route: l 15:00: IVP, Q12H, Dosing Weight 60.2, kg, Start date: 10/25/22 9:00:00 CATH LAB RADIOLOGICAL TECHNOLOGIST, Duration: 30 day, Stop date: 11/23/22 21:00:00 CATH LAB RADIOLOGICAL TECHNOLOGIST Saline 2021-11 No Notes: Memoria Flush 0.9% 2-15 (Same as: l 15:00: BD Constantia 00 Posiflush) AMIODarone 2021-11 No Notes: Memor ia 2-15 (Same as: l 15:00: Cordarone) famotidine 2021-11 No 20 mg, Memor ia 2-15 Route: l 15:00: IVP, Q12H, Dosing Weight 60.2, kg, Start date: 10/25/22 9:00:00 CATH LAB RADIOLOGICAL TECHNOLOGIST, Duration: 30 day, Stop date: 11/23/22 21:00:00 CATH LAB RADIOLOGICAL TECHNOLOGIST Saline 2021-11 No Notes: Memoria Flush 0.9% 2-15 (Same as: l 15:00: BD Syed 00 Posiflush) AMIODarone 2021-11 No Notes: Memor ia 2-15 (Same as: l 15:00: Cordarone) LR IV 1,000 2021-11 No 1,000 mL, Loree rahmanria mL 2-15 Rate: 75 l 14:34: ml/hr, Infuse over: 13.3 hr, Route: IV, Dosing Weight 60.2 kg, Total Volume: 1,000, Start date: 10/25/22 8:34:00 CATH LAB RADIOLOGICAL TECHNOLOGIST, Duration: 30 day, Stop date: 11/24/22 8:33:00 CATH LAB RADIOLOGICAL TECHNOLOGIST, BSA: 1.67 m2, 0 LR IV 1,000 2021-11 No 1,000 mL, M emoria mL 2-15 Rate: 75 l 14:34: ml/hr, Syed 00 Infuse over: 13.3 hr, Route: IV, Dosing Weight 60.2 kg, Total Volume: 1,000, Start date: 10/25/22 8:34:00 CATH LAB RADIOLOGICAL TECHNOLOGIST, Duration: 30 day, Stop date: 11/24/22 8:33:00 CATH LAB RADIOLOGICAL TECHNOLOGIST, BSA: 1.67 m2, 0 LR IV 1,000 2021-11 No 1,000 mL, M emoria mL 2-15 Rate: 75 l 14:34: ml/hr, Syed 00 Infuse over: 13.3 hr, Route: IV, Dosing Weight 60.2 kg, Total Volume: 1,000, Start date: 10/25/22 8:34:00 CATH LAB RADIOLOGICAL TECHNOLOGIST, Duration: 30 day, Stop date: 11/24/22 8:33:00 CATH LAB RADIOLOGICAL TECHNOLOGIST, BSA: 1.67 m2, 0 LR IV 1,000 2021-11 No 1,000 mL, M emoria mL 2-15 Rate: 75 l 14:34: ml/hr, Syed 00 Infuse over: 13.3 hr, Route: IV, Dosing Weight 60.2 kg, Total Volume: 1,000, Start date: 10/25/22 8:34:00 CATH LAB RADIOLOGICAL TECHNOLOGIST, Duration: 30 day, Stop date: 11/24/22 8:33:00 CATH LAB RADIOLOGICAL TECHNOLOGIST, BSA: 1.67 m2, 0 LR IV 1,000 2021-11 No 1,000 mL, M emoria mL 2-15 Rate: 75 l 14:34: ml/hr, Syed 00 Infuse over: 13.3 hr, Route: IV, Dosing Weight 60.2 kg, Total Volume: 1,000, Start date: 10/25/22 8:34:00 CATH LAB RADIOLOGICAL TECHNOLOGIST, Duration: 30 day, Stop date: 11/24/22 8:33:00 CATH LAB RADIOLOGICAL TECHNOLOGIST, BSA: 1.67 m2, 0 LR IV 1,000 2021-11 No 1,000 mL, M emoria mL 2-15 Rate: 75 l 14:34: ml/hr, Constantia 00 Infuse over: 13.3 hr, Route: IV, Dosing Weight 60.2 kg, Total Volume: 1,000, Start date: 10/25/22 8:34:00 CATH LAB RADIOLOGICAL TECHNOLOGIST, Duration: 30 day, Stop date: 11/24/22 8:33:00 CATH LAB RADIOLOGICAL TECHNOLOGIST, BSA: 1.67 m2, 0 LR IV 1,000 2021-11 No 1,000 mL, M emoria mL 2-15 Rate: 75 l 14:34: ml/hr, Syed 00 Infuse over: 13.3 hr, Route: IV, Dosing Weight 60.2 kg, Total Volume: 1,000, Start date: 10/25/22 8:34:00 CATH LAB RADIOLOGICAL TECHNOLOGIST, Duration: 30 day, Stop date: 11/24/22 8:33:00 CATH LAB RADIOLOGICAL TECHNOLOGIST, BSA: 1.67 m2, 0 LR IV 1,000 2021-11 No 1,000 mL, M emoria mL 2-15 Rate: 75 l 14:34: ml/hr, Syed 00 Infuse over: 13.3 hr, Route: IV, Dosing Weight 60.2 kg, Total Volume: 1,000, Start date: 10/25/22 8:34:00 CATH LAB RADIOLOGICAL TECHNOLOGIST, Duration: 30 day, Stop date: 11/24/22 8:33:00 CATH LAB RADIOLOGICAL TECHNOLOGIST, BSA: 1.67 m2, 0 LR IV 1,000 2021-11 No 1,000 mL, M emoria mL 2-15 Rate: 75 l 14:34: ml/hr, Constantia 00 Infuse over: 13.3 hr, Route: IV, Dosing Weight 60.2 kg, Total Volume: 1,000, Start date: 10/25/22 8:34:00 CATH LAB RADIOLOGICAL TECHNOLOGIST, Duration: 30 day, Stop date: 11/24/22 8:33:00 CATH LAB RADIOLOGICAL TECHNOLOGIST, BSA: 1.67 m2, 0 LR IV 1,000 2021-11 No 1,000 mL, M emoria mL 2-15 Rate: 75 l 14:34: ml/hr, Syed 00 Infuse over: 13.3 hr, Route: IV, Dosing Weight 60.2 kg, Total Volume: 1,000, Start date: 10/25/22 8:34:00 CATH LAB RADIOLOGICAL TECHNOLOGIST, Duration: 30 day, Stop date: 11/24/22 8:33:00 CATH LAB RADIOLOGICAL TECHNOLOGIST, BSA: 1.67 m2, 0 LR IV 1,000 2021-11 No 1,000 mL, M emoria mL 2-15 Rate: 75 l 14:34: ml/hr, Syed 00 Infuse over: 13.3 hr, Route: IV, Dosing Weight 60.2 kg, Total Volume: 1,000, Start date: 10/25/22 8:34:00 CATH LAB RADIOLOGICAL TECHNOLOGIST, Duration: 30 day, Stop date: 11/24/22 8:33:00 CATH LAB RADIOLOGICAL TECHNOLOGIST, BSA: 1.67 m2, 0 Sodium 2022-1 No 250 mL, Memoria Chloride 2-15 Rate: To l 0.9% 13:55: prime line Syed (titrate) 00 and flush 250 mL remaining blood products., Dosing Weight 60.2, kg, Route: IV, Total Volume: 250, Priority: Routine, Start Date: 10/25/22 7:55:00 CATH LAB RADIOLOGICAL TECHNOLOGIST, Duration: 1 day, Stop date: 10/26/22 7:54:00 CATH LAB RADIOLOGICAL TECHNOLOGIST, Replace Every: 24 hr, 0 Sodium 2022-1 No 250 mL, Memoria Chloride 2-15 Rate: To l 0.9% 13:55: prime line Syed (titrate) 00 and flush 250 mL remaining blood products., Dosing Weight 60.2, kg, Route: IV, Total Volume: 250, Priority: Routine, Start Date: 10/25/22 7:55:00 CATH LAB RADIOLOGICAL TECHNOLOGIST, Duration: 1 day, Stop date: 10/26/22 7:54:00 CATH LAB RADIOLOGICAL TECHNOLOGIST, Replace Every: 24 hr, 0 Sodium 2022-1 No 250 mL, Memoria Chloride 2-15 Rate: To l 0.9% 13:55: prime line Constantia (titrate) 00 and flush 250 mL remaining blood products., Dosing Weight 60.2, kg, Route: IV, Total Volume: 250, Priority: Routine, Start Date: 10/25/22 7:55:00 CATH LAB RADIOLOGICAL TECHNOLOGIST, Duration: 1 day, Stop date: 10/26/22 7:54:00 CATH LAB RADIOLOGICAL TECHNOLOGIST, Replace Every: 24 hr, 0 Sodium 2022-1 No 250 mL, Memoria Chloride 2-15 Rate: To l 0.9% 13:55: prime line Constantia (titrate) 00 and flush 250 mL remaining blood products., Dosing Weight 60.2, kg, Route: IV, Total Volume: 250, Priority: Routine, Start Date: 10/25/22 7:55:00 CATH LAB RADIOLOGICAL TECHNOLOGIST, Duration: 1 day, Stop date: 10/26/22 7:54:00 CATH LAB RADIOLOGICAL TECHNOLOGIST, Replace Every: 24 hr, 0 Sodium 2022-1 No 250 mL, Memoria Chloride 2-15 Rate: To l 0.9% 13:55: prime line Constantia (titrate) 00 and flush 250 mL remaining blood products., Dosing Weight 60.2, kg, Route: IV, Total Volume: 250, Priority: Routine, Start Date: 10/25/22 7:55:00 CATH LAB RADIOLOGICAL TECHNOLOGIST, Duration: 1 day, Stop date: 10/26/22 7:54:00 CATH LAB RADIOLOGICAL TECHNOLOGIST, Replace Every: 24 hr, 0 Sodium 2022-1 No 250 mL, Memoria Chloride 2-15 Rate: To l 0.9% 13:55: prime line Constantia (titrate) 00 and flush 250 mL remaining blood products., Dosing Weight 60.2, kg, Route: IV, Total Volume: 250, Priority: Routine, Start Date: 10/25/22 7:55:00 CATH LAB RADIOLOGICAL TECHNOLOGIST, Duration: 1 day, Stop date: 10/26/22 7:54:00 CATH LAB RADIOLOGICAL TECHNOLOGIST, Replace Every: 24 hr, 0 Sodium 2022-1 No 250 mL, Memoria Chloride 2-15 Rate: To l 0.9% 13:55: prime line Constantia (titrate) 00 and flush 250 mL remaining blood products., Dosing Weight 60.2, kg, Route: IV, Total Volume: 250, Priority: Routine, Start Date: 10/25/22 7:55:00 CATH LAB RADIOLOGICAL TECHNOLOGIST, Duration: 1 day, Stop date: 10/26/22 7:54:00 CATH LAB RADIOLOGICAL TECHNOLOGIST, Replace Every: 24 hr, 0 Sodium 2022-1 No 250 mL, Memoria Chloride 2-15 Rate: To l 0.9% 13:55: prime line Syed (titrate) 00 and flush 250 mL remaining blood products., Dosing Weight 60.2, kg, Route: IV, Total Volume: 250, Priority: Routine, Start Date: 10/25/22 7:55:00 CATH LAB RADIOLOGICAL TECHNOLOGIST, Duration: 1 day, Stop date: 10/26/22 7:54:00 CATH LAB RADIOLOGICAL TECHNOLOGIST, Replace Every: 24 hr, 0 Sodium 2022-1 No 250 mL, Memoria Chloride 2-15 Rate: To l 0.9% 13:55: prime line Constantia (titrate) 00 and flush 250 mL remaining blood products., Dosing Weight 60.2, kg, Route: IV, Total Volume: 250, Priority: Routine, Start Date: 10/25/22 7:55:00 CATH LAB RADIOLOGICAL TECHNOLOGIST, Duration: 1 day, Stop date: 10/26/22 7:54:00 CATH LAB RADIOLOGICAL TECHNOLOGIST, Replace Every: 24 hr, 0 Sodium 2021-11 No 250 mL, Memoria Chloride 2-15 Rate: To l 0.9% 13:55: prime line Constantia (titrate) 00 and flush 250 mL remaining blood products., Dosing Weight 60.2, kg, Route: IV, Total Volume: 250, Priority: Routine, Start Date: 10/25/22 7:55:00 CATH LAB RADIOLOGICAL TECHNOLOGIST, Duration: 1 day, Stop date: 10/26/22 7:54:00 CATH LAB RADIOLOGICAL TECHNOLOGIST, Replace Every: 24 hr, 0 Sodium 2021-11 No 250 mL, Memoria Chloride 2-15 Rate: To l 0.9% 13:55: prime line Constantia (titrate) 00 and flush 250 mL remaining blood products., Dosing Weight 60.2, kg, Route: IV, Total Volume: 250, Priority: Routine, Start Date: 10/25/22 7:55:00 CATH LAB RADIOLOGICAL TECHNOLOGIST, Duration: 1 day, Stop date: 10/26/22 7:54:00 CATH LAB RADIOLOGICAL TECHNOLOGIST, Replace Every: 24 hr, 0 nystatin 2021-11 No Notes: Memoria topical 2-15 (Same l 100,000 12:19: as:Mycosta Herm chandu units/g 00 tin, powder Nilstat) For external use only. Saline 2021-11 No Notes: Memoria Flush 0.9% 2-15 (Same as: l 12:19: BD Syed 00 Posiflush) nystatin 2021-11 No Notes: Memoria topical 2-15 (Same l 100,000 12:19: as:Mycosta Herm chandu units/g 00 tin, powder Nilstat) For external use only. Saline 2021-11 No Notes: Memoria Flush 0.9% 2-15 (Same as: l 12:19: BD Syed 00 Posiflush) nystatin 2021-11 No Notes: Memoria topical 2-15 (Same l 100,000 12:19: as:Mycosta Herm chandu units/g 00 tin, powder Nilstat) For external use only. Saline 2021-11 No Notes: Memoria Flush 0.9% 2-15 (Same as: l 12:19: BD Constantia 00 Posiflush) nystatin 2021-11 No Notes: Memoria topical 2-15 (Same l 100,000 12:19: as:Mycosta Herm chandu units/g 00 tin, powder Nilstat) For external use only. Saline 2021-11 No Notes: Memoria Flush 0.9% 2-15 (Same as: l 12:19: BD Syed 00 Posiflush) nystatin 2021-11 No Notes: Memoria topical 2-15 (Same l 100,000 12:19: as:Mycosta Herm chandu units/g 00 tin, powder Nilstat) For external use only. Saline 2021-11 No Notes: Memoria Flush 0.9% 2-15 (Same as: l 12:19: BD Constantia 00 Posiflush) nystatin 2021-11 No Notes: Memoria topical 2-15 (Same l 100,000 12:19: as:Mycosta Herm chandu units/g 00 tin, powder Nilstat) For external use only. Saline 2021-11 No Notes: Memoria Flush 0.9% 2-15 (Same as: l 12:19: BD Constantia 00 Posiflush) nystatin 2021-11 No Notes: Memoria topical 2-15 (Same l 100,000 12:19: as:Mycosta Herm chandu units/g 00 tin, powder Nilstat) For external use only. Saline 2021-11 No Notes: Memoria Flush 0.9% 2-15 (Same as: l 12:19: BD Constantia 00 Posiflush) nystatin 2021-11 No Notes: Memoria topical 2-15 (Same l 100,000 12:19: as:Mycosta Herm chandu units/g 00 tin, powder Nilstat) For external use only. Saline 2021-11 No Notes: Memoria Flush 0.9% 2-15 (Same as: l 12:19: BD Constantia 00 Posiflush) nystatin 2021-11 No Notes: Memoria topical 2-15 (Same l 100,000 12:19: as:Mycosta Herm chandu units/g 00 tin, powder Nilstat) For external use only. Saline 2021-11 No Notes: Memoria Flush 0.9% 2-15 (Same as: l 12:19: BD Syed 00 Posiflush) nystatin 2021-11 No Notes: Memoria topical 2-15 (Same l 100,000 12:19: as:Mycosta Herm chandu units/g 00 tin, powder Nilstat) For external use only. Saline 2021-11 No Notes: Memoria Flush 0.9% 2-15 (Same as: l 12:19: BD Constantia 00 Posiflush) nystatin 2021-11 No Notes: Memoria topical 2-15 (Same l 100,000 12:19: as:Mycosta Herm chandu units/g 00 tin, powder Nilstat) For external use only. Saline 2021-11 No Notes: Memoria Flush 0.9% 2-15 (Same as: l 12:19: BD Syed 00 Posiflush) gabapentin 2021-11 Yes 300 mg = 1 M emoria 300 mg oral 2-15 cap, PO, l capsule 12:18: Daily, 0 Johnny n 00 Refill(s) gabapentin 2021-11 Yes 300 mg = 1 M emoria 300 mg oral 2-15 cap, PO, l capsule 12:18: Daily, 0 Johnny n 00 Refill(s) gabapentin 2021-11 Yes 300 mg = 1 M emoria 300 mg oral 2-15 cap, PO, l capsule 12:18: Daily, 0 Johnny n 00 Refill(s) gabapentin 2021-11 Yes 300 mg = 1 M emoria 300 mg oral 2-15 cap, PO, l capsule 12:18: Daily, 0 Johnny n 00 Refill(s) gabapentin 2021-11 Yes 300 mg = 1 M emoria 300 mg oral 2-15 cap, PO, l capsule 12:18: Daily, 0 Johnny n 00 Refill(s) gabapentin 2021-11 Yes 300 mg = 1 M emoria 300 mg oral 2-15 cap, PO, l capsule 12:18: Daily, 0 Johnny n 00 Refill(s) gabapentin 2021-11 Yes 300 mg = 1 M emoria 300 mg oral 2-15 cap, PO, l capsule 12:18: Daily, 0 Johnny n 00 Refill(s) gabapentin 2021-11 Yes 300 mg = 1 M emoria 300 mg oral 2-15 cap, PO, l capsule 12:18: Daily, 0 Johnny n 00 Refill(s) gabapentin 2021-11 Yes 300 mg = 1 M emoria 300 mg oral 2-15 cap, PO, l capsule 12:18: Daily, 0 Johnny n 00 Refill(s) gabapentin 2021-11 Yes 300 mg = 1 M emoria 300 mg oral 2-15 cap, PO, l capsule 12:18: Daily, 0 Johnny n 00 Refill(s) gabapentin 2021-11 Yes 300 mg = 1 M emoria 300 mg oral 2-15 cap, PO, l capsule 12:18: Daily, 0 Johnny n 00 Refill(s) Dextrose 2021-11 No 12.5 gm, Memor ia 50% Syringe 2-15 25 mL, l (D50W) 12:12: Route: Syed IVP, Drug Form: INJ, Dosing Weight 60.2, kg, PRN, PRN Blood Glucose Results, Start date: 10/25/22 6:12:00 CATH LAB RADIOLOGICAL TECHNOLOGIST, Duration: 30 day, Stop date: 11/24/22 6:11:00 CATH LAB RADIOLOGICAL TECHNOLOGIST, 0 glucagon 2021-11 No 1 mg, Memoria 2-15 Route: IM, l 12:12: Drug form: Constantia PDR/INJ, PRN, Dosing Weight 60.2, kg, PRN Blood Glucose Results, Start date: 10/25/22 6:12:00 CATH LAB RADIOLOGICAL TECHNOLOGIST, Duration: 30 day, Stop date: 11/24/22 6:11:00 CATH LAB RADIOLOGICAL TECHNOLOGIST, 0 docusate 2021-11 No Notes: Memoria 2-15 (Same as: l 12:12: Colace) (Do Not Crush) ondansetron 2021-11 No Notes: Ervin marybel 2-15 (Same as: l 12:12: Zofran) MEDICATION WASTE Product Size: 4 mg Product Wasted: ___ mg melatonin 2021-11 No Notes: Memori a 2-15 (Same as: l 12:12: Melatonin) acetaminoph 2021-11 No Notes: Do M emoria en 2-15 not exceed l 12:12: 4 gm/day. Constantia 00 (Same as: Tylenol) pantoprazol 2021-11 No Notes: Ervin marybel e additive 2-15 (Same as: l 80 mg 12:12: Protonix) Dextrose 2021-11 No 12.5 gm, Memor ia 50% Syringe 2-15 25 mL, l (D50W) 12:12: Route: Constantia 00 IVP, Drug Form: INJ, Dosing Weight 60.2, kg, PRN, PRN Blood Glucose Results, Start date: 10/25/22 6:12:00 CATH LAB RADIOLOGICAL TECHNOLOGIST, Duration: 30 day, Stop date: 11/24/22 6:11:00 CATH LAB RADIOLOGICAL TECHNOLOGIST, 0 glucagon 2021-11 No 1 mg, Memoria 2-15 Route: IM, l 12:12: Drug form: Syed 00 PDR/INJ, PRN, Dosing Weight 60.2, kg, PRN Blood Glucose Results, Start date: 10/25/22 6:12:00 CATH LAB RADIOLOGICAL TECHNOLOGIST, Duration: 30 day, Stop date: 11/24/22 6:11:00 CATH LAB RADIOLOGICAL TECHNOLOGIST, 0 docusate 2021-11 No Notes: Memoria 2-15 (Same as: l 12:12: Colace) (Do Not Crush) ondansetron 2021-11 No Notes: Ervin marybel 2-15 (Same as: l 12:12: Zofran) MEDICATION WASTE Product Size: 4 mg Product Wasted: ___ mg melatonin 2021-11 No Notes: Memori a 2-15 (Same as: l 12:12: Melatonin) acetaminoph 2021-11 No Notes: Do M emoria en 2-15 not exceed l 12:12: 4 gm/day. (Same as: Tylenol) pantoprazol 2021-11 No Notes: Ervin marybel e additive 2-15 (Same as: l 80 mg 12:12: Protonix) Dextrose 2021-11 No 12.5 gm, Memor ia 50% Syringe 2-15 25 mL, l (D50W) 12:12: Route: Syed 00 IVP, Drug Form: INJ, Dosing Weight 60.2, kg, PRN, PRN Blood Glucose Results, Start date: 10/25/22 6:12:00 CATH LAB RADIOLOGICAL TECHNOLOGIST, Duration: 30 day, Stop date: 11/24/22 6:11:00 CATH LAB RADIOLOGICAL TECHNOLOGIST, 0 glucagon 2021-11 No 1 mg, Memoria 2-15 Route: IM, l 12:12: Drug form: Constantia PDR/INJ, PRN, Dosing Weight 60.2, kg, PRN Blood Glucose Results, Start date: 10/25/22 6:12:00 CATH LAB RADIOLOGICAL TECHNOLOGIST, Duration: 30 day, Stop date: 11/24/22 6:11:00 CATH LAB RADIOLOGICAL TECHNOLOGIST, 0 docusate 2021-11 No Notes: Memoria 2-15 (Same as: l 12:12: Colace) (Do Not Crush) ondansetron 2021-11 No Notes: Ervin marybel 2-15 (Same as: l 12:12: Zofran) MEDICATION WASTE Product Size: 4 mg Product Wasted: ___ mg melatonin 2021-11 No Notes: Memori a 2-15 (Same as: l 12:12: Melatonin) acetaminoph 2021-11 No Notes: Do M emoria en 2-15 not exceed l 12:12: 4 gm/day. (Same as: Tylenol) pantoprazol 2021-11 No Notes: Ervin marybel e additive 2-15 (Same as: l 80 mg 12:12: Protonix) Dextrose 2021-11 No 12.5 gm, Memor ia 50% Syringe 2-15 25 mL, l (D50W) 12:12: Route: Syed 00 IVP, Drug Form: INJ, Dosing Weight 60.2, kg, PRN, PRN Blood Glucose Results, Start date: 10/25/22 6:12:00 CATH LAB RADIOLOGICAL TECHNOLOGIST, Duration: 30 day, Stop date: 11/24/22 6:11:00 CATH LAB RADIOLOGICAL TECHNOLOGIST, 0 glucagon 2021-11 No 1 mg, Memoria 2-15 Route: IM, l 12:12: Drug form: Syed PDR/INJ, PRN, Dosing Weight 60.2, kg, PRN Blood Glucose Results, Start date: 10/25/22 6:12:00 CATH LAB RADIOLOGICAL TECHNOLOGIST, Duration: 30 day, Stop date: 11/24/22 6:11:00 CATH LAB RADIOLOGICAL TECHNOLOGIST, 0 docusate 2022-1 No Notes: Memoria 2-15 (Same as: l 12:12: Colace) (Do Not Crush) ondansetron 2021-11 No Notes: Ervin marybel 2-15 (Same as: l 12:12: Zofran) MEDICATION WASTE Product Size: 4 mg Product Wasted: ___ mg melatonin 2021-11 No Notes: Memori a 2-15 (Same as: l 12:12: Melatonin) acetaminoph 2021-11 No Notes: Do M emoria en 2-15 not exceed l 12:12: 4 gm/day. (Same as: Tylenol) pantoprazol 2021-11 No Notes: Ervin marybel e additive 2-15 (Same as: l 80 mg 12:12: Protonix) Dextrose 2021-11 No 12.5 gm, Memor ia 50% Syringe 2-15 25 mL, l (D50W) 12:12: Route: IVP, Drug Form: INJ, Dosing Weight 60.2, kg, PRN, PRN Blood Glucose Results, Start date: 10/25/22 6:12:00 CATH LAB RADIOLOGICAL TECHNOLOGIST, Duration: 30 day, Stop date: 11/24/22 6:11:00 CATH LAB RADIOLOGICAL TECHNOLOGIST, 0 glucagon 2021-11 No 1 mg, Memoria 2-15 Route: IM, l 12:12: Drug form: PDR/INJ, PRN, Dosing Weight 60.2, kg, PRN Blood Glucose Results, Start date: 10/25/22 6:12:00 CATH LAB RADIOLOGICAL TECHNOLOGIST, Duration: 30 day, Stop date: 11/24/22 6:11:00 CATH LAB RADIOLOGICAL TECHNOLOGIST, 0 docusate 2021-11 No Notes: Memoria 2-15 (Same as: l 12:12: Colace) (Do Not Crush) ondansetron 2021-11 No Notes: Ervin marybel 2-15 (Same as: l 12:12: Zofran) MEDICATION WASTE Product Size: 4 mg Product Wasted: ___ mg melatonin 2021-11 No Notes: Memori a 2-15 (Same as: l 12:12: Melatonin) acetaminoph 2021-11 No Notes: Do M emoria en 2-15 not exceed l 12:12: 4 gm/day. (Same as: Tylenol) pantoprazol 2021-11 No Notes: Ervin marybel e additive 2-15 (Same as: l 80 mg 12:12: Protonix) Dextrose 2021-11 No 12.5 gm, Memor ia 50% Syringe 2-15 25 mL, l (D50W) 12:12: Route: IVP, Drug Form: INJ, Dosing Weight 60.2, kg, PRN, PRN Blood Glucose Results, Start date: 10/25/22 6:12:00 CATH LAB RADIOLOGICAL TECHNOLOGIST, Duration: 30 day, Stop date: 11/24/22 6:11:00 CATH LAB RADIOLOGICAL TECHNOLOGIST, 0 glucagon 2021-11 No 1 mg, Memoria 2-15 Route: IM, l 12:12: Drug form: PDR/INJ, PRN, Dosing Weight 60.2, kg, PRN Blood Glucose Results, Start date: 10/25/22 6:12:00 CATH LAB RADIOLOGICAL TECHNOLOGIST, Duration: 30 day, Stop date: 11/24/22 6:11:00 CATH LAB RADIOLOGICAL TECHNOLOGIST, 0 docusate 2021-11 No Notes: Memoria 2-15 (Same as: l 12:12: Colace) (Do Not Crush) ondansetron 2021-11 No Notes: Ervin marybel 2-15 (Same as: l 12:12: Zofran) MEDICATION WASTE Product Size: 4 mg Product Wasted: ___ mg melatonin 2021-11 No Notes: Memori a 2-15 (Same as: l 12:12: Melatonin) acetaminoph 2021-11 No Notes: Do M emoria en 2-15 not exceed l 12:12: 4 gm/day. (Same as: Tylenol) pantoprazol 2021-11 No Notes: Ervin marybel e additive 2-15 (Same as: l 80 mg 12:12: Protonix) Dextrose 2021-11 No 12.5 gm, Memor ia 50% Syringe 2-15 25 mL, l (D50W) 12:12: Route: IVP, Drug Form: INJ, Dosing Weight 60.2, kg, PRN, PRN Blood Glucose Results, Start date: 10/25/22 6:12:00 CATH LAB RADIOLOGICAL TECHNOLOGIST, Duration: 30 day, Stop date: 11/24/22 6:11:00 CATH LAB RADIOLOGICAL TECHNOLOGIST, 0 glucagon 2021-11 No 1 mg, Memoria 2-15 Route: IM, l 12:12: Drug form: Constantia PDR/INJ, PRN, Dosing Weight 60.2, kg, PRN Blood Glucose Results, Start date: 10/25/22 6:12:00 CATH LAB RADIOLOGICAL TECHNOLOGIST, Duration: 30 day, Stop date: 11/24/22 6:11:00 CATH LAB RADIOLOGICAL TECHNOLOGIST, 0 docusate 2021-11 No Notes: Memoria 2-15 (Same as: l 12:12: Colace) (Do Not Crush) ondansetron 2021-11 No Notes: Ervin marybel 2-15 (Same as: l 12:12: Zofran) MEDICATION WASTE Product Size: 4 mg Product Wasted: ___ mg melatonin 2021-11 No Notes: Memori a 2-15 (Same as: l 12:12: Melatonin) acetaminoph 2021-11 No Notes: Do M emoria en 2-15 not exceed l 12:12: 4 gm/day. (Same as: Tylenol) pantoprazol 2021-11 No Notes: Ervin marybel e additive 2-15 (Same as: l 80 mg 12:12: Protonix) Dextrose 2021-11 No 12.5 gm, Memor ia 50% Syringe 2-15 25 mL, l (D50W) 12:12: Route: Syed 00 IVP, Drug Form: INJ, Dosing Weight 60.2, kg, PRN, PRN Blood Glucose Results, Start date: 10/25/22 6:12:00 CATH LAB RADIOLOGICAL TECHNOLOGIST, Duration: 30 day, Stop date: 11/24/22 6:11:00 CATH LAB RADIOLOGICAL TECHNOLOGIST, 0 glucagon 2021-11 No 1 mg, Memoria 2-15 Route: IM, l 12:12: Drug form: Constantia 00 PDR/INJ, PRN, Dosing Weight 60.2, kg, PRN Blood Glucose Results, Start date: 10/25/22 6:12:00 CATH LAB RADIOLOGICAL TECHNOLOGIST, Duration: 30 day, Stop date: 11/24/22 6:11:00 CATH LAB RADIOLOGICAL TECHNOLOGIST, 0 docusate 2021-11 No Notes: Memoria 2-15 (Same as: l 12:12: Colace) (Do Not Crush) ondansetron 2021-11 No Notes: Ervin marybel 2-15 (Same as: l 12:12: Zofran) MEDICATION WASTE Product Size: 4 mg Product Wasted: ___ mg melatonin 2021-11 No Notes: Memori a 2-15 (Same as: l 12:12: Melatonin) acetaminoph 2021-11 No Notes: Do M emoria en 2-15 not exceed l 12:12: 4 gm/day. (Same as: Tylenol) pantoprazol 2021-11 No Notes: Ervin marybel e additive 2-15 (Same as: l 80 mg 12:12: Protonix) Dextrose 2021-11 No 12.5 gm, Memor ia 50% Syringe 2-15 25 mL, l (D50W) 12:12: Route: IVP, Drug Form: INJ, Dosing Weight 60.2, kg, PRN, PRN Blood Glucose Results, Start date: 10/25/22 6:12:00 CATH LAB RADIOLOGICAL TECHNOLOGIST, Duration: 30 day, Stop date: 11/24/22 6:11:00 CATH LAB RADIOLOGICAL TECHNOLOGIST, 0 glucagon 2021-11 No 1 mg, Memoria 2-15 Route: IM, l 12:12: Drug form: Syed 00 PDR/INJ, PRN, Dosing Weight 60.2, kg, PRN Blood Glucose Results, Start date: 10/25/22 6:12:00 CATH LAB RADIOLOGICAL TECHNOLOGIST, Duration: 30 day, Stop date: 11/24/22 6:11:00 CATH LAB RADIOLOGICAL TECHNOLOGIST, 0 docusate 2021-11 No Notes: Memoria 2-15 (Same as: l 12:12: Colace) (Do Not Crush) ondansetron 2021-11 No Notes: Ervin marybel 2-15 (Same as: l 12:12: Zofran) MEDICATION WASTE Product Size: 4 mg Product Wasted: ___ mg melatonin 2021-11 No Notes: Memori a 2-15 (Same as: l 12:12: Melatonin) acetaminoph 2021-11 No Notes: Do M emoria en 2-15 not exceed l 12:12: 4 gm/day. (Same as: Tylenol) pantoprazol 2021-11 No Notes: Ervin marybel e additive 2-15 (Same as: l 80 mg 12:12: Protonix) Dextrose 2021-11 No 12.5 gm, Memor ia 50% Syringe 2-15 25 mL, l (D50W) 12:12: Route: IVP, Drug Form: INJ, Dosing Weight 60.2, kg, PRN, PRN Blood Glucose Results, Start date: 10/25/22 6:12:00 CATH LAB RADIOLOGICAL TECHNOLOGIST, Duration: 30 day, Stop date: 11/24/22 6:11:00 CATH LAB RADIOLOGICAL TECHNOLOGIST, 0 glucagon 2021-11 No 1 mg, Memoria 2-15 Route: IM, l 12:12: Drug form: PDR/INJ, PRN, Dosing Weight 60.2, kg, PRN Blood Glucose Results, Start date: 10/25/22 6:12:00 CATH LAB RADIOLOGICAL TECHNOLOGIST, Duration: 30 day, Stop date: 11/24/22 6:11:00 CATH LAB RADIOLOGICAL TECHNOLOGIST, 0 docusate 2021-11 No Notes: Memoria 2-15 (Same as: l 12:12: Colace) (Do Not Crush) ondansetron 2021-11 No Notes: Ervin marybel 2-15 (Same as: l 12:12: Zofran) MEDICATION WASTE Product Size: 4 mg Product Wasted: ___ mg melatonin 2021-11 No Notes: Memori a 2-15 (Same as: l 12:12: Melatonin) acetaminoph 2021-11 No Notes: Do M emoria en 2-15 not exceed l 12:12: 4 gm/day. (Same as: Tylenol) pantoprazol 2021-11 No Notes: Ervin marybel e additive 2-15 (Same as: l 80 mg 12:12: Protonix) Dextrose 2021-11 No 12.5 gm, Memor ia 50% Syringe 2-15 25 mL, l (D50W) 12:12: Route: IVP, Drug Form: INJ, Dosing Weight 60.2, kg, PRN, PRN Blood Glucose Results, Start date: 10/25/22 6:12:00 CATH LAB RADIOLOGICAL TECHNOLOGIST, Duration: 30 day, Stop date: 11/24/22 6:11:00 CATH LAB RADIOLOGICAL TECHNOLOGIST, 0 glucagon 2021-11 No 1 mg, Memoria 2-15 Route: IM, l 12:12: Drug form: Syed 00 PDR/INJ, PRN, Dosing Weight 60.2, kg, PRN Blood Glucose Results, Start date: 10/25/22 6:12:00 CATH LAB RADIOLOGICAL TECHNOLOGIST, Duration: 30 day, Stop date: 11/24/22 6:11:00 CATH LAB RADIOLOGICAL TECHNOLOGIST, 0 docusate 2021-11 No Notes: Memoria 2-15 (Same as: l 12:12: Colace) (Do Not Crush) ondansetron 2021-11 No Notes: Ervin marybel 2-15 (Same as: l 12:12: Zofran) MEDICATION WASTE Product Size: 4 mg Product Wasted: ___ mg melatonin 2021-11 No Notes: Memori a 2-15 (Same as: l 12:12: Melatonin) acetaminoph 2021-11 No Notes: Do M emoria en 2-15 not exceed l 12:12: 4 gm/day. (Same as: Tylenol) pantoprazol 2021-11 No Notes: Ervin marybel e additive 2-15 (Same as: l 80 mg 12:12: Protonix) LR IV 250 2021-11 No 250 mL, Memor ia mL 2-15 Rate: 250 l 06:45: ml/hr, Infuse over: 1 hr, Route: IV, Dosing Weight 60.2 kg, Total Volume: 250, Start date: 10/25/22 0:45:00 CATH LAB RADIOLOGICAL TECHNOLOGIST, Duration: 1 doses or times, Stop date: 10/25/22 1:44:00 CATH LAB RADIOLOGICAL TECHNOLOGIST, BSA: 1.67 m2, 0 LR IV 250 2021-11 No 250 mL, Memor ia mL 2-15 Rate: 250 l 06:45: ml/hr, Infuse over: 1 hr, Route: IV, Dosing Weight 60.2 kg, Total Volume: 250, Start date: 10/25/22 0:45:00 CATH LAB RADIOLOGICAL TECHNOLOGIST, Duration: 1 doses or times, Stop date: 10/25/22 1:44:00 CATH LAB RADIOLOGICAL TECHNOLOGIST, BSA: 1.67 m2, 0 LR IV 250 2021-11 No 250 mL, Memor ia mL 2-15 Rate: 250 l 06:45: ml/hr, Constantia 00 Infuse over: 1 hr, Route: IV, Dosing Weight 60.2 kg, Total Volume: 250, Start date: 10/25/22 0:45:00 CATH LAB RADIOLOGICAL TECHNOLOGIST, Duration: 1 doses or times, Stop date: 10/25/22 1:44:00 CATH LAB RADIOLOGICAL TECHNOLOGIST, BSA: 1.67 m2, 0 LR IV 250 2021-11 No 250 mL, Memor ia mL 2-15 Rate: 250 l 06:45: ml/hr, Syed 00 Infuse over: 1 hr, Route: IV, Dosing Weight 60.2 kg, Total Volume: 250, Start date: 10/25/22 0:45:00 CATH LAB RADIOLOGICAL TECHNOLOGIST, Duration: 1 doses or times, Stop date: 10/25/22 1:44:00 CATH LAB RADIOLOGICAL TECHNOLOGIST, BSA: 1.67 m2, 0 LR IV 250 2021-11 No 250 mL, Memor ia mL 2-15 Rate: 250 l 06:45: ml/hr, Constantia 00 Infuse over: 1 hr, Route: IV, Dosing Weight 60.2 kg, Total Volume: 250, Start date: 10/25/22 0:45:00 CATH LAB RADIOLOGICAL TECHNOLOGIST, Duration: 1 doses or times, Stop date: 10/25/22 1:44:00 CATH LAB RADIOLOGICAL TECHNOLOGIST, BSA: 1.67 m2, 0 LR IV 250 2021-11 No 250 mL, Memor ia mL 2-15 Rate: 250 l 06:45: ml/hr, Constantia 00 Infuse over: 1 hr, Route: IV, Dosing Weight 60.2 kg, Total Volume: 250, Start date: 10/25/22 0:45:00 CATH LAB RADIOLOGICAL TECHNOLOGIST, Duration: 1 doses or times, Stop date: 10/25/22 1:44:00 CATH LAB RADIOLOGICAL TECHNOLOGIST, BSA: 1.67 m2, 0 LR IV 250 2021-11 No 250 mL, Memor ia mL 2-15 Rate: 250 l 06:45: ml/hr, Constantia 00 Infuse over: 1 hr, Route: IV, Dosing Weight 60.2 kg, Total Volume: 250, Start date: 10/25/22 0:45:00 CATH LAB RADIOLOGICAL TECHNOLOGIST, Duration: 1 doses or times, Stop date: 10/25/22 1:44:00 CATH LAB RADIOLOGICAL TECHNOLOGIST, BSA: 1.67 m2, 0 LR IV 250 2021-11 No 250 mL, Memor ia mL 2-15 Rate: 250 l 06:45: ml/hr, Constantia 00 Infuse over: 1 hr, Route: IV, Dosing Weight 60.2 kg, Total Volume: 250, Start date: 10/25/22 0:45:00 CATH LAB RADIOLOGICAL TECHNOLOGIST, Duration: 1 doses or times, Stop date: 10/25/22 1:44:00 CATH LAB RADIOLOGICAL TECHNOLOGIST, BSA: 1.67 m2, 0 LR IV 250 2021-11 No 250 mL, Memor ia mL 2-15 Rate: 250 l 06:45: ml/hr, Constantia 00 Infuse over: 1 hr, Route: IV, Dosing Weight 60.2 kg, Total Volume: 250, Start date: 10/25/22 0:45:00 CATH LAB RADIOLOGICAL TECHNOLOGIST, Duration: 1 doses or times, Stop date: 10/25/22 1:44:00 CATH LAB RADIOLOGICAL TECHNOLOGIST, BSA: 1.67 m2, 0 LR IV 250 2021-11 No 250 mL, Memor ia mL 2-15 Rate: 250 l 06:45: ml/hr, Syed 00 Infuse over: 1 hr, Route: IV, Dosing Weight 60.2 kg, Total Volume: 250, Start date: 10/25/22 0:45:00 CATH LAB RADIOLOGICAL TECHNOLOGIST, Duration: 1 doses or times, Stop date: 10/25/22 1:44:00 CATH LAB RADIOLOGICAL TECHNOLOGIST, BSA: 1.67 m2, 0 LR IV 250 2021-11 No 250 mL, Memor ia mL 2-15 Rate: 250 l 06:45: ml/hr, Constantia 00 Infuse over: 1 hr, Route: IV, Dosing Weight 60.2 kg, Total Volume: 250, Start date: 10/25/22 0:45:00 CATH LAB RADIOLOGICAL TECHNOLOGIST, Duration: 1 doses or times, Stop date: 10/25/22 1:44:00 CATH LAB RADIOLOGICAL TECHNOLOGIST, BSA: 1.67 m2, 0 lactulose 2021-11 Yes 30mL 30 mL, Univer s (CEPHULAC) 2-07 Oral, BID, ity of solution 30 16:00: First dose [place] mL 00 on Sat10/17/22 at Branch 1000, Until Discontinu ed, Routine metoprolol 2021-11 25mg Take 25 mg Univers succinate 12-18 by mouth ity o f XL 25 mg 24 14:41: 00:00 daily. [place] as hr tablet 49 :00 Medical Branch clonazePAM 2021-11- No .5mg Take 0.5 Un mesfin (KLONOPIN) 12-18-07 mg by ity of 0.5 mg 14:41: 00:00 mouth 3 [place] tablet 49 :00 (three) Medical times Branch daily. clopidogreL 2021-11 No 75mg Take 75 mg Univers (PLAVIX) 75 12-18- by mouth ity of mg tablet 14:41: 00:00 daily. [place] 49 :00 [facility] apixaban 2021-11 2.5mg Take 2.5 Uni vers (ELIQUIS) 12-18-07 mg by ity of 2.5 mg 14:41: 00:00 mouth 2 [place] tablet 49 :00 (two) Medical times [place] daily. aspirin 81 2021-11 No 81mg Take 81 mg Univers mg Cap 12-18 by mouth ity of 14:41: 00:00 daily. [place] 49 :00 [facility] NaCl 0.9% 2021-11 500mL at 100 Univ ers (NS) bolus 12-18 mL/hr, 500 it y of infusion 14:15: 14:24 mL, IV [place] 500 mL 00 :00 [facility] ONCE, 1 Branch dose, On Sat10/17/22 at 0815, STAT aspirin 81 2021-11 Yes 81mg Take 81 mg U nivers mg Cap 2-07 by mouth ity of 00:00: daily. [place] 00 [facility] Branch clopidogreL 2021-11 Yes 75mg Take 1 Univ ers (PLAVIX) 75 2-07 tablet by ity of mg tablet 00:00: mouth in [facility] s 00 the Medical morning. Branch diclofenac 2021-11 Yes 75mg Take 1 Unive rs 75 mg EC 2-07 tablet by ity of tablet 00:00: mouth in [place] 00 the Medical morning Branch and 1 tablet in the evening. Take with meals. levothyroxi 2021-11 Yes TK 1 T PO U nivers ne 112 mcg 2-07 QD ity of tablet 00:00: [place] [facility] metoprolol 2021-11 Yes 25mg Take 1 Unive rs succinate 2-07 tablet by ity o f XL 25 mg 24 00:00: mouth in [place] hr tablet 00 the Medical morning. Branch apixaban 2021-11 Yes 2.5mg Take 1 Univer s (ELIQUIS) 2-07 tablet by ity o f 2.5 mg 00:00: mouth in [place] tablet 00 the Medical morning Branch and 1 tablet in the evening. clonazePAM 2021-11 Yes .5mg Take 1 Unive rs (KLONOPIN) 2-07 tablet by ity of 0.5 mg 00:00: mouth in [place] tablet 00 the Medical morning Branch and 1 tablet at noon and 1 tablet in the evening. levETIRAcet 2021-11 Yes 250mg Take 1 Uni vers am 250 mg 2-07 tablet by ity o f tablet 00:00: mouth in [place] [address] the Medical morning Branch and 1 tablet in the evening. bacitracin- 2021-11 Yes [id number] Apply to [facility] [place] [facility] polymyxin B 2-07 area(s) ity o f 500-10,000 00:00: daily. [place] unit/gram Medical topical Branch ointment aspirin 81 2021-11 Yes 81mg Take 81 mg U nivers mg Cap 2-07 by mouth ity of 00:00: daily. [place] [address] Medical Branch clopidogreL 2021-11 Yes 75mg Take 1 Univ ers (PLAVIX) 75 2-07 tablet by ity of mg tablet 00:00: mouth in [facility] the morning. Branch diclofenac 2021-11 Yes 75mg Take 1 Unive rs 75 mg EC 2-07 tablet by ity of tablet 00:00: mouth in [place] [address] the Medical morning Branch and 1 tablet in the evening. Take with meals. levothyroxi 2021-11 Yes TK 1 T PO U nivers ne 112 mcg 2-07 QD ity of tablet 00:00: [place] [facility] metoprolol 2021-11 Yes 25mg Take 1 Unive rs succinate 2-07 tablet by ity o f XL 25 mg 24 00:00: mouth [place] hr tablet 00 the Medical morning. Branch apixaban 2021-11 Yes 2.5mg Take 1 Univer s (ELIQUIS) 2-07 tablet by ity o f 2.5 mg 00:00: mouth in [place] tablet 00 the Medical morning Branch and 1 tablet in the evening. clonazePAM 2021-11 Yes .5mg Take 1 Unive rs (KLONOPIN) 2-07 tablet by ity of 0.5 mg 00:00: mouth in [place] tablet 00 the Medical morning Branch and 1 tablet at noon and 1 tablet in the evening. levETIRAcet 2021-11 Yes 250mg Take 1 Uni vers am 250 mg 2-07 tablet by ity o f tablet 00:00: mouth in [place] 00 the Medical morning Branch and 1 tablet in the evening. bacitracin- 2021-11 Yes [id number] Apply to [facility] [place] [facility] polymyxin B 12-18 area(s) ity o f 500-10,000 00:00: daily. [place] unit/gram 00 Medical topical Branch ointment HYDROcodone 2021-11 Yes 1{tbl} [facility], [facility], it y of hen (NORCO 18:00: First dose [place] 5) 5-325 mg 00 (after Medica l tablet 1 last Branch tablet modificati on) on 10/14/22 at 1200, Until Discontinu ed, Routine sulfamethox 2021-11- No 1{tbl} 1 tablet, [facility] [place] [facility] azole-trime 2- 12-06 Oral, BID, i ty of thoprim 02:00: 01:32 5 doses, [place] (BACTRIM 00 :00 First dose Medic al DS) 800-160 on Sat Branch mg per 10/13/22 at tablet 1 1999, Last tablet dose on 10/15/22 at 1999, ANTHONY
Re ason for Anti-Infec tive: Documented Infection< br>Documen rosendo Infection Site: Urine
D uration of Therapy: Other (see Comments) acetaminoph 2021-11- No 1{tbl} 1 tablet, [facility] [place] [facility] en-codeine 2- 12-04 Oral, ity of (TYLENOL 14:30: 17:34 Q12H, [place] #3) 300-30 00 :35 First dose Med ical mg tablet 1 (after Branch tablet last modificati on) on 10/13/22 at 0830, Until Discontinu ed, Routine KCL 2021-11- No 40meq 40 mEq, Univers (KLOR-CON 204 Oral, BID, ity of M20) tablet 13:00: 19:43 First dose [place] 40 mEq 00 :08 on Sat Medical 10/13/22 at Branch 0700, Until Discontinu ed, Routine clonazePAM 2021-11 Yes .5mg 0.5 mg, Univ ers (KLONOPIN) 12-13 Oral, TID, ity of tablet 0.5 20:00: First dose [place] mg 00 (after Medical last Branch modificati on) on Sat10/12/22 at 1400, Until Discontinu ed, Routine apixaban 2021-11 Yes 2.5mg 2.5 mg, Unive rs (ELIQUIS) 12-13 Oral, BID, ity of tablet 2.5 16:00: First dose [place] mg 00 on Sat Medical 10/12/22 at Branch 1000, Until Discontinu ed, Routine
Indicatio ns: Non-Valvul ar Atrial Fibrillati on sennosides- 2021-11 Yes 1{tbl} 1 tablet, Univers docusate 12-13 Oral, ity of sodium 14:30: DAILY, [place] (SENOKOT-S) 00 First dose Me dical 8.6-50 mg on Sat Branch per tablet 10/12/22 at 1 tablet 0830, Until Discontinu ed, Routine lactulose 2021-11- No 30mL 30 mL, Unive rs (CEPHULAC) 12-13 Oral, ity of solution 30 14:30: 14:59 DAILY, 4 [place] mL 00 :00 doses, Medical First dose Branch on Sat10/12/22 at 0830, Last dose on 10/14/22 at 0900, Routine HYDROcodone 2021-11- No 1{tbl} 1 tablet, Univers -acetaminop 12-13 Oral, Q6H, i ty of hen (NORCO 14:30: 17:34 First dose [place] 5) 5-325 mg 00 :36 (after Medica l tablet 1 last Branch tablet modificati on) on Sat10/12/22 at 0830, Until Discontinu ed, Routine meropenem 2021-11 No 1000mg 1,000 mg, Univers (MERREM) 12-12-03 IV ity of 1,000 mg in 02:15: 19:06 Piggyback, [place] NaCl 0.9% 00 :57 Q12H ABX, Medic al (NS) 50 mL 10 doses, Bran ch MINI-BAG First dose on Sat10/10/22 at 2015, Last dose on Sat10/15/22 at 0815, Administer over 3 Hours, 50 mL
Rest ricted use approved by: [facility]TH FLOOR<br&g t;Reason for Anti-Infec tive: Documented Infection< br>Dockymberly robbins Infection Site: Blood<br&g t;Duration of Therapy: 7 days vancomycin 2021-11 No 15mg/kg 1,000 mg Univers (VANCOCIN) 12-10 (rounded ity of 1,000 mg in 18:00: 17:26 from 930 [place] NaCl 0.9% 00 :40 mg = 15 Medical (NS) 250 mL mg/kg ?62 [facility] VIAL-MATE kg), IV IV Piggyback, piggyback Q24H ABX, 6 doses, First dose on Sat10/10/22 at 1200, Last dose on Sat10/15/22 at 1200, Administer over 60 Minutes, 250 mL
Reas on for Anti-Infec tive: Empiric Therapy for Suspected Infection< br>Empiric Therapy Site: Skin / Soft tissue
Duration of therapy: 5 days sulfur 2021-11 No [id number] 5mL 5 mL, Univ ers hexafluorid 12-10 Intravenou i ty of e microsphr 16:45: 16:45 s, ONCE, 1 [place] (LUMASON) 00 :00 dose, On Medica l injection 5 Sat Branch mL 10/10/22 at 1045, Routine
family member caretaker approving Restricted medication : JOEY ESPINOSA pantoprazol 2021-11 Yes 40mg 40 mg, Univ ers e 12-10 Oral, ity of (PROTONIX) 15:30: DAILY, [place] EC tablet 00 First dose Medi nicolas 40 mg on Sat Branch 10/10/22 at 0930, Until Discontinu ed, Routine ipratropium 2021-11 Yes 3mL 3 mL, Unive rs -albuteroL 1-30 Inhalation ity of (DUONEB) 15:25: , TIDPRN, [place] 0.5 mg-3 40 Starting Medical mg(2.5 mg on Sat base)/3 mL 10/10/22 nebulizer at 0925, solution 3 Until mL Discontinu ed, Routine, Wheezing polyethylen 2021-11 Yes 17g 17 g, Unive rs e glycol 1-30 Oral, ity of 3350 powder 15:00: DAILY, [place] 17 g 00 First dose Medical on Sat Branch 10/10/22 at 0900, Until Discontinu ed, Routine levETIRAcet 2021-11 Yes 250mg 250 mg, Un mesfin am (KEPPRA) 1-30 Oral, BID, it y of tablet 250 14:00: First dose [place] mg 00 on Sat Medical 10/10/22 Branch at 0800, Until Discontinu ed, Routine HEPARIN 2021-11- No 60U/kg 3,720 Univer s SODIUM -30 11-30 Units (60 ity of (PORCINE) 14:00: 14:34 Units/kg Jsoh as 1,000 00 :00 ?62 kg), Medical UNIT/ML IV Push, Branch BOLUS ACS ONCE, 1 ORDER SET dose, On Sat10/10/22 at 0800, ANTHONY heparin 2021-11- No 0U/h 0-1,600 Univer s 25,000 1-30 12-02 Units/hr ity of Units/250 13:43: 15:46 (0-16 [place] mL 08 :30 mL/hr), IV Medical (Premixed Infusion, Branc h Bag) in TITRATE, 0.45 % NS Parameters in Admin. Instr., Starting on Sat10/10/22 at 0743
In itiate infusion at 12 units/kg/h r calculated as: 750 Units/hr (Maximum initial rate: 1,000 Units/hr, then adjust dose as needed per aPTT).&nbs p; CA UTION - If LMWH given in ER, AVOID bolus and start next dose/drip 12 hrs after ER dosage.&nb sp; M ust program rate using programmab le infusion pump.&nbsp ; Janice ck with the ordering provider first prior to any administra tion should the patient be on existing/a dditional anticoagul ant therapy.&n bsp; Range, Dosing and Testing&nb sp; - aPTT < 40: & nbsp;Bolus 3000 units, increase rate 100 units/hr.& nbsp;- aPTT 40-49:&nbs p; In crease rate 50 units/hr. - aPTT 50-70:&nbs p; NO CHANGE.&nb sp;- aPTT 71-85:&nbs p;&nbs p;Decrease rate 50 units/hr.& nbsp;- aPTT 86-100:&nb sp; H old 30 minutes, decrease rate 100 units/hr.& nbsp;- aPTT 101-150:&n bsp; Hold 60 minutes, decrease rate 150 units/hr.& nbsp;- aPTT > 150: Hold 60 minutes, decrease rate 300 units/hr.& nbsp;&nbsp ;Check aPTT 6 hours after initiation , then Q6H after every change, aPTT Q12H once therapeuti c levels are reached.&n bsp; DO NOT ADJUST INITIAL BOLUS OR INITIAL INFUSION RATE.
HYDROcodone 2021-11 No 1{tbl} 1 tablet, Univers -acetaminop 12-10 Oral, ity of hen (NORCO 13:30: 14:15 Q6HPRN, [place] as 5) 5-325 mg 22 :11 Starting Medi nicolas tablet 1 on Sat Branch tablet 10/10/22 at 0730, Until 10/12/22 at 0815, Routine, Pain (scale 7-10) acetaminoph 2021-11- No 1{tbl} 1 tablet, Univers en-codeine 12-10 Oral, ity of (TYLENOL 13:30: 14:18 Q4HPRN, [place] #3) 300-30 14 :45 Starting Medic al mg tablet 1 on Sat Branch tablet 10/10/22 at 0730, Until 10/13/22 at 0818, Routine, Pain (scale 4-6) acetaminoph 2021-11 Yes 650mg 650 mg, Un mesfin en 1-30 Oral, ity of (TYLENOL) 13:30: Q6HPRN, [place] tablet 650 03 Starting Medic al mg on Sat10/10/22 at 0730, Until Discontinu ed, Routine, Pain (scale 1-3) lidocaine No Notes: Memori a 1% 9-22 (Same as: l injectable 22:00: Xylocaine) H ermann solution lidocaine No Notes: Memori a 1% 9-22 (Same as: l injectable 22:00: Xylocaine) H ermann solution 00 lidocaine No Notes: Memori a 1% 9-22 (Same as: l injectable 22:00: Xylocaine) H ermann solution lidocaine No Notes: Memori a 1% 9-22 (Same as: l injectable 22:00: Xylocaine) H ermann solution lidocaine No Notes: Memori a 1% 9-22 (Same as: l injectable 22:00: Xylocaine) H ermann solution 00 lidocaine No Notes: Memori a 1% 9-22 (Same as: l injectable 22:00: Xylocaine) H ermann solution 00 lidocaine No Notes: Memori a 1% 9-22 (Same as: l injectable 22:00: Xylocaine) H ermann solution lidocaine No Notes: Memori a 1% 9-22 (Same as: l injectable 22:00: Xylocaine) H ermann solution lidocaine No Notes: Memori a 1% 9-22 (Same as: l injectable 22:00: Xylocaine) H ermann solution 00 lidocaine No Notes: Memori a 1% 9-22 (Same as: l injectable 22:00: Xylocaine) H ermann solution lidocaine No Notes: Memori a 1% 9-22 (Same as: l injectable 22:00: Xylocaine) H ermann solution ciprofloxac No 3 drp, Ervin marybel in-hydrocor 08-02 Route: l tisone otic 13:30: LEFT EAR, [place] suspension 00 Drug Form: SUSP, Dosing Weight 55.568, kg, BID, Start date: 08/02/22 8:30:00 CDT, Duration: 30 day, Stop date: 08/31/22 21:00:00 CDT ciprofloxac No Notes: Ervin marybel in 08-02 (Same As: l ophthalmic 13:30: Ciloxan) Her feng dexamethaso No Notes: Ervin marybel ne 08-02 (Same As: l ophthalmic 13:30: Decadron, He rmann 0.05% 00 ophthalmic ointment ) Non-Formul mirna ciprofloxac No 3 drp, Ervin marybel in-hydrocor 08-02 Route: l tisone otic 13:30: LEFT EAR, H [place] suspension 00 Drug Form: SUSP, Dosing Weight 55.568, kg, BID, Start date: 08/02/22 8:30:00 CDT, Duration: 30 day, Stop date: 08/31/22 21:00:00 CDT ciprofloxac No Notes: Ervin marybel in 08-02 (Same As: l ophthalmic 13:30: Ciloxan) Her feng dexamethaso No Notes: Ervin marybel ne 08-02 (Same As: l ophthalmic 13:30: Decadron, He rmann 0.05% 00 ophthalmic ointment ) Non-Formul mirna ciprofloxac No 3 drp, Ervin marybel in-hydrocor 08-02 Route: l tisone otic 13:30: LEFT EAR, H [place] suspension 00 Drug Form: SUSP, Dosing Weight 55.568, kg, BID, Start date: 08/02/22 8:30:00 CDT, Duration: 30 day, Stop date: 08/31/22 21:00:00 CDT ciprofloxac No Notes: Ervin marybel in 08-02 (Same As: l ophthalmic 13:30: Ciloxan) Her feng dexamethaso No Notes: Ervin marybel ne 08-02 (Same As: l ophthalmic 13:30: Decadron, He rmann 0.05% 00 ophthalmic ointment ) Non-Formul mirna ciprofloxac No 3 drp, Ervin marybel in-hydrocor 08-02 Route: l tisone otic 13:30: LEFT EAR, [place] suspension 00 Drug Form: SUSP, Dosing Weight 55.568, kg, BID, Start date: 08/02/22 8:30:00 CDT, Duration: 30 day, Stop date: 08/31/22 21:00:00 CDT ciprofloxac No Notes: Ervin marybel in 08-02 (Same As: l ophthalmic 13:30: Ciloxan) Her feng dexamethaso No Notes: Ervin marybel ne 08-02 (Same As: l ophthalmic 13:30: Decadron, He rmann 0.05% 00 ophthalmic ointment ) Non-Formul mirna ciprofloxac No 3 drp, Ervin marybel in-hydrocor 08-02 Route: l tisone otic 13:30: LEFT EAR, [place] suspension 00 Drug Form: SUSP, Dosing Weight 55.568, kg, BID, Start date: 08/02/22 8:30:00 CDT, Duration: 30 day, Stop date: 08/31/22 21:00:00 CDT ciprofloxac No Notes: Ervin marybel in 08-02 (Same As: l ophthalmic 13:30: Ciloxan) Her feng dexamethaso No Notes: Ervin marybel ne 08-02 (Same As: l ophthalmic 13:30: Decadron, He rmann 0.05% 00 ophthalmic ointment ) Non-Formul mirna ciprofloxac No 3 drp, Ervin marybel in-hydrocor 08-02 Route: l tisone otic 13:30: LEFT EAR, [place] suspension 00 Drug Form: SUSP, Dosing Weight 55.568, kg, BID, Start date: 08/02/22 8:30:00 CDT, Duration: 30 day, Stop date: 08/31/22 21:00:00 CDT ciprofloxac No Notes: Ervin marybel in 08-02 (Same As: l ophthalmic 13:30: Ciloxan) Her feng dexamethaso No Notes: Ervin marybel ne 08-02 (Same As: l ophthalmic 13:30: Decadron, He rmann 0.05% 00 ophthalmic ointment ) Non-Formul mirna ciprofloxac No 3 drp, Ervin marybel in-hydrocor 08-02 Route: l tisone otic 13:30: LEFT EAR, [place] suspension 00 Drug Form: SUSP, Dosing Weight 55.568, kg, BID, Start date: 08/02/22 8:30:00 CDT, Duration: 30 day, Stop date: 08/31/22 21:00:00 CDT ciprofloxac No Notes: Ervin marybel in 08-02 (Same As: l ophthalmic 13:30: Ciloxan) Her feng dexamethaso No Notes: Ervin marybel ne 08-02 (Same As: l ophthalmic 13:30: Decadron, He rmann 0.05% 00 ophthalmic ointment ) Non-Formul mirna ciprofloxac No 3 drp, Ervin marybel in-hydrocor 08-02 Route: l tisone otic 13:30: LEFT EAR, H [place] suspension 00 Drug Form: SUSP, Dosing Weight 55.568, kg, BID, Start date: 08/02/22 8:30:00 CDT, Duration: 30 day, Stop date: 08/31/22 21:00:00 CDT ciprofloxac No Notes: Ervin marybel in 08-02 (Same As: l ophthalmic 13:30: Ciloxan) Her feng dexamethaso No Notes: Ervin marybel ne 08-02 (Same As: l ophthalmic 13:30: Decadron, He rmann 0.05% 00 ophthalmic ointment ) Non-Formul mirna ciprofloxac No 3 drp, Ervin marybel in-hydrocor 08-02 Route: l tisone otic 13:30: LEFT EAR, [place] suspension 00 Drug Form: SUSP, Dosing Weight 55.568, kg, BID, Start date: 08/02/22 8:30:00 CDT, Duration: 30 day, Stop date: 08/31/22 21:00:00 CDT ciprofloxac No Notes: Ervin marybel in 08-02 (Same As: l ophthalmic 13:30: Ciloxan) Her feng dexamethaso No Notes: Ervin marybel ne 08-02 (Same As: l ophthalmic 13:30: Decadron, He rmann 0.05% 00 ophthalmic ointment ) Non-Formul mirna ciprofloxac No 3 drp, Ervin marybel in-hydrocor 08-02 Route: l tisone otic 13:30: LEFT EAR, H [place] suspension 00 Drug Form: SUSP, Dosing Weight 55.568, kg, BID, Start date: 08/02/22 8:30:00 CDT, Duration: 30 day, Stop date: 08/31/22 21:00:00 CDT ciprofloxac No Notes: Ervin marybel in 08-02 (Same As: l ophthalmic 13:30: Ciloxan) Her feng dexamethaso No Notes: Ervin marybel ne 08-02 (Same As: l ophthalmic 13:30: Decadron, He rmann 0.05% 00 ophthalmic ointment ) Non-Formul mirna ciprofloxac No 3 drp, Ervin marybel in-hydrocor 08-02 Route: l tisone otic 13:30: LEFT EAR, H ermann suspension 00 Drug Form: SUSP, Dosing Weight 55.568, kg, BID, Start date: 08/02/22 8:30:00 CDT, Duration: 30 day, Stop date: 08/31/22 21:00:00 CDT ciprofloxac No Notes: Ervin marybel in 08-02 (Same As: l ophthalmic 13:30: Ciloxan) Her feng dexamethaso No Notes: Ervin marybel ne 08-02 (Same As: l ophthalmic 13:30: Decadron, He rmann 0.05% 00 ophthalmic ointment ) Non-Formul mirna melatonin No Notes: Memori a 08-02 (Same as: l 02:00: Melatonin) melatonin No Notes: Memori a 08-02 (Same as: l 02:00: Melatonin) melatonin No Notes: Memori a 08-02 (Same as: l 02:00: Melatonin) melatonin No Notes: Memori a 08-02 (Same as: l 02:00: Melatonin) melatonin No Notes: Memori a 08-02 (Same as: l 02:00: Melatonin) melatonin No Notes: Memori a 08-02 (Same as: l 02:00: Melatonin) melatonin No Notes: Memori a 08-02 (Same as: l 02:00: Melatonin) melatonin No Notes: Memori a 08-02 (Same as: l 02:00: Melatonin) melatonin No Notes: Memori a 08-02 (Same as: l 02:00: Melatonin) melatonin No Notes: Memori a 08-02 (Same as: l 02:00: Melatonin) melatonin No Notes: Memori a 08-02 (Same as: l 02:00: Melatonin) [place] 5/325 Yes 0.5 tab, Me [place] oral tablet 9-21 PO, Q6H, l 20:56: PRN Pain Syed 00 Score 4-6, not to exceed 8 tablets/da y contact your PCP if feeling sleepy on this medication , # 28 tab, 0 Refill(s), Pharmacy: [facility] #[id number], 165.1, cm, 07/22/22 17:29:00 CDT, Height, 55.568, kg, 07/22/22 17:29:00 CDT,... clonazePAM Yes See Memoria 1 mg oral - Instructio l tablet 20:56: ns, take 1 [place] 00 tab by mouth in am, take 2 tabs by mouth in evening do not drive if taking medication do not stop suddently; only wean with supervisprincess n contact your pcp if feeling sleepy on these medication , # 42 tab, 0 Refill(s), Ph... [place] 5/325 Yes 0.5 tab, Me moria oral tablet 9-21 PO, Q6H, l 20:56: PRN Pain Constantia 00 Score 4-6, not to exceed 8 tablets/da y contact your PCP if feeling sleepy on this medication , # 28 tab, 0 Refill(s), Pharmacy: [facility] #[id number], 165.1, cm, 07/22/22 17:29:00 CDT, Height, 55.568, kg, 07/22/22 17:29:00 CDT,... clonazePAM 2021-0 Yes See Memoria 1 mg oral 9-21 Instructio l tablet 20:56: ns, take 1 [place] 00 tab by mouth in am, take 2 tabs by mouth in evening do not drive if taking medication do not stop suddently; only wean with MD supervisio n contact your pcp if feeling sleepy on these medication , # 42 tab, 0 Refill(s), Ph... [place] 5/325 2021-0 Yes 0.5 tab, Me moria oral tablet 9-21 PO, Q6H, l 20:56: PRN Pain Syed 00 Score 4-6, not to exceed 8 tablets/da y contact your PCP if feeling sleepy on this medication , # 28 tab, 0 Refill(s), Pharmacy: [facility] #[id number], 165.1, cm, 07/22/22 17:29:00 CDT, Height, 55.568, kg, 07/22/22 17:29:00 CDT,... clonazePAM 2021-0 Yes See Memoria 1 mg oral 9-21 Instructio l tablet 20:56: ns, take 1 [place] 00 tab by mouth in am, take 2 tabs by mouth in evening do not drive if taking medication do not stop suddently; only wean with MD supervisio n contact your pcp if feeling sleepy on these medication , # 42 tab, 0 Refill(s), Ph... [place] 5/325 2021-0 Yes 0.5 tab, Me moria oral tablet 9-21 PO, Q6H, l 20:56: PRN Pain Syed 00 Score 4-6, not to exceed 8 tablets/da y contact your PCP if feeling sleepy on this medication , # 28 tab, 0 Refill(s), Pharmacy: [facility] #[id number], 165.1, cm, 07/22/22 17:29:00 CDT, Height, 55.568, kg, 07/22/22 17:29:00 CDT,... clonazePAM 2021-0 Yes See Memoria 1 mg oral 9-21 Instructio l tablet 20:56: ns, take 1 [place] 00 tab by mouth in am, take 2 tabs by mouth in evening do not drive if taking medication do not stop suddently; only wean with MD supervisio n contact your pcp if feeling sleepy on these medication , # 42 tab, 0 Refill(s), Ph... [place] 5/325 2021-0 Yes 0.5 tab, Me moria oral tablet 9-21 PO, Q6H, l 20:56: PRN Pain Syed 00 Score 4-6, not to exceed 8 tablets/da y contact your PCP if feeling sleepy on this medication , # 28 tab, 0 Refill(s), Pharmacy: [facility] #[id number], 165.1, cm, 07/22/22 17:29:00 CDT, Height, 55.568, kg, 07/22/22 17:29:00 CDT,... clonazePAM 2021-0 Yes See Memoria 1 mg oral 9-21 Instructio l tablet 20:56: ns, take 1 [place] nn 00 tab by mouth in am, take 2 tabs by mouth in evening do not drive if taking medication do not stop suddently; only wean with MD supervisio n contact your pcp if feeling sleepy on these medication , # 42 tab, 0 Refill(s), Ph... [place] 5/325 2021-0 Yes 0.5 tab, Me moria oral tablet 9-21 PO, Q6H, l 20:56: PRN Pain Constantia 00 Score 4-6, not to exceed 8 tablets/da y contact your PCP if feeling sleepy on this medication , # 28 tab, 0 Refill(s), Pharmacy: [facility] #[id number], 165.1, cm, 07/22/22 17:29:00 CDT, Height, 55.568, kg, 07/22/22 17:29:00 CDT,... clonazePAM 2021-0 Yes See Memoria 1 mg oral 9-21 Instructio l tablet 20:56: ns, take 1 [place] nn 00 tab by mouth in am, take 2 tabs by mouth in evening do not drive if taking medication do not stop suddently; only wean with MD supervisio n contact your pcp if feeling sleepy on these medication , # 42 tab, 0 Refill(s), Ph... [place] 5/325 0 Yes 0.5 tab, Me moria oral tablet 9-21 PO, Q6H, l 20:56: PRN Pain Constantia 00 Score 4-6, not to exceed 8 tablets/da y contact your PCP if feeling sleepy on this medication , # 28 tab, 0 Refill(s), Pharmacy: [facility] #[id number], 165.1, cm, 07/22/22 17:29:00 CDT, Height, 55.568, kg, 07/22/22 17:29:00 CDT,... clonazePAM 2021-0 Yes See Memoria 1 mg oral 9-21 Instructio l tablet 20:56: ns, take 1 [place] nn 00 tab by mouth in am, take 2 tabs by mouth in evening do not drive if taking medication do not stop suddently; only wean with MD supervisio n contact your pcp if feeling sleepy on these medication , # 42 tab, 0 Refill(s), Ph... [place] 5/325 0 Yes 0.5 tab, Me moria oral tablet 9-21 PO, Q6H, l 20:56: PRN Pain Constantia 00 Score 4-6, not to exceed 8 tablets/da y contact your PCP if feeling sleepy on this medication , # 28 tab, 0 Refill(s), Pharmacy: [facility] #[id number], 165.1, cm, 07/22/22 17:29:00 CDT, Height, 55.568, kg, 07/22/22 17:29:00 CDT,... clonazePAM 2021-0 Yes See Memoria 1 mg oral 9-21 Instructio l tablet 20:56: ns, take 1 [place] nn 00 tab by mouth in am, take 2 tabs by mouth in evening do not drive if taking medication do not stop suddently; only wean with MD supervisio n contact your pcp if feeling sleepy on these medication , # 42 tab, 0 Refill(s), Ph... [place] 5/325 0 Yes 0.5 tab, Me moria oral tablet 9-21 PO, Q6H, l 20:56: PRN Pain Syed 00 Score 4-6, not to exceed 8 tablets/da y contact your PCP if feeling sleepy on this medication , # 28 tab, 0 Refill(s), Pharmacy: [facility] #[id number], 165.1, cm, 07/22/22 17:29:00 CDT, Height, 55.568, kg, 07/22/22 17:29:00 CDT,... clonazePAM Yes See Memoria 1 mg oral 9-21 Instructio l tablet 20:56: ns, take 1 [place] nn 00 tab by mouth in am, take 2 tabs by mouth in evening do not drive if taking medication do not stop suddently; only wean with MD supervisio n contact your pcp if feeling sleepy on these medication , # 42 tab, 0 Refill(s), Ph... [place] Yes 0.5 tab, Me moria oral tablet 9-21 PO, Q6H, l 20:56: PRN Pain Syed 00 Score 4-6, not to exceed 8 tablets/da y contact your PCP if feeling sleepy on this medication , # 28 tab, 0 Refill(s), Pharmacy: [facility] #[id number], 165.1, cm, 07/22/22 17:29:00 CDT, Height, 55.568, kg, 07/22/22 17:29:00 CDT,... clonazePAM Yes See Memoria 1 mg oral 9-21 Instructio l tablet 20:56: ns, take 1 [place] nn 00 tab by mouth in am, take 2 tabs by mouth in evening do not drive if taking medication do not stop suddently; only wean with MD supervisio n contact your pcp if feeling sleepy on these medication , # 42 tab, 0 Refill(s), Ph... [place] Yes 0.5 tab, Me moria oral tablet 9-21 PO, Q6H, l 20:56: PRN Pain Syed 00 Score 4-6, not to exceed 8 tablets/da y contact your PCP if feeling sleepy on this medication , # 28 tab, 0 Refill(s), Pharmacy: [facility] #[id number], 165.1, cm, 07/22/22 17:29:00 CDT, Height, 55.568, kg, 07/22/22 17:29:00 CDT,... clonazePAM Yes See Memoria 1 mg oral - Instructio l tablet 20:56: ns, take 1 Allyn nn 00 tab by mouth in am, take 2 tabs by mouth in evening do not drive if taking medication do not stop suddently; only wean with MD wolf lares contact your pcp if feeling sleepy on these medication , # 42 tab, 0 Refill(s), Ph... [place] 5/325 2021-0 No 0.5 tab, Me moria oral tablet 9-21 PO, Q4H, l 18:42: PRN Pain Syed 00 Score 4-6, 0 Refill(s) [facility] 5/325 2021-0 No 0.5 tab, Me moria oral tablet 9-21 PO, Q4H, l 18:42: PRN Pain Constantia 00 Score 4-6, 0 Refill(s) [place] 5/325 2021-0 No 0.5 tab, Me moria oral tablet 9-21 PO, Q4H, l 18:42: PRN Pain Syed 00 Score 4-6, 0 Refill(s) [place] 5/325 2021-0 No 0.5 tab, Me moria oral tablet 9-21 PO, Q4H, l 18:42: PRN Pain Syed 00 Score 4-6, 0 Refill(s) [facility] [place] 5/325 2021-0 No 0.5 tab, Me moria oral tablet 9-21 PO, Q4H, l 18:42: PRN Pain Syed 00 Score 4-6, 0 Refill(s) [place] 5/325 2021-0 No 0.5 tab, Me moria oral tablet 9-21 PO, Q4H, l 18:42: PRN Pain Constantia 00 Score 4-6, 0 Refill(s) [place] 5/325 2021-0 No 0.5 tab, Me moria oral tablet 9-21 PO, Q4H, l 18:42: PRN Pain Syed 00 Score 4-6, 0 Refill(s) [place] 5/325 2021-0 No 0.5 tab, Me moria oral tablet 9-21 PO, Q4H, l 18:42: PRN Pain Syed 00 Score 4-6, 0 Refill(s) [place] 5/325 2021-0 No 0.5 tab, Me moria oral tablet 9-21 PO, Q4H, l 18:42: PRN Pain Syed 00 Score 4-6, 0 Refill(s) [place] 5/325 2021-0 No 0.5 tab, Me moria oral tablet 9-21 PO, Q4H, l 18:42: PRN Pain Constantia 00 Score 4-6, 0 Refill(s) [place] 5/325 2021-0 No 0.5 tab, Me moria oral tablet 9-21 PO, Q4H, l 18:42: PRN Pain Constantia 00 Score 4-6, 0 Refill(s) apixaban Yes 2.5 mg = 1 Mem oria 2.5 mg oral -21 tab, PO, l tablet 18:39: Q12H, For Johnny n 00 Atrial Fibrillati on, # 60 tab, 1 Refill(s), Pharmacy: [id number], 165.1, cm, 07/22/22 17:29:00 CDT, Height, 55.568, kg, 07/22/22 17:29:00 CDT, Weight aspirin 81 2021-0 Yes 81 mg = 1 Me moria mg tablet, - tab, PO, l enteric 18:39: Daily, # Johnny n coated 00 30 tab, 1 Refill(s), Pharmacy: [id number], 165.1, cm, 07/22/22 17:29:00 CDT, Height, 55.568, kg, 07/22/22 17:29:00 CDT, Weight cephalexin Yes 250 mg = 1 M emoria 250 mg oral - cap, PO, l capsule 18:39: Daily, X Johnny n 00 30 day, # 30 cap, 1 Refill(s), Pharmacy: [facility] #[id number], 165.1, cm, 07/22/22 17:29:00 CDT, Height, 55.568, kg, 07/22/22 17:29:00 CDT, Weight magnesium 2021-0 Yes 1.2 gm = Ervin marybel hydroxide 9-21 15 mL, PO, l 8% oral 18:39: Bedtime, X Herm chandu suspension 30 day, # 450 mL, 1 Refill(s), Pharmacy: [facility] #[id number], 165.1, cm, 07/22/22 17:29:00 CDT, Height, 55.568, kg, 07/22/22 17:29:00 CDT, Weight melatonin 3 2021-0 Yes 9 mg = 3 Me moria mg oral 9-21 tab, PO, l tablet 18:39: Bedtime, X Allyn nn 30 day, # 90 tab, 1 Refill(s), Pharmacy: [facility] #[id number], 165.1, cm, 07/22/22 17:29:00 CDT, Height, 55.568, kg, 07/22/22 17:29:00 CDT, Weight polyethylen 2021-0 Yes 17 gm, PO, Memoria e glycol -21 Daily, X l 3350 oral 18:39: 30 day, # Her feng powder for 00 255 gm, 0 reconstitut Refill(s), ion Pharmacy: [facility] #[id number], 165.1, cm, 07/22/22 17:29:00 CDT, Height, 55.568, kg, 07/22/22 17:29:00 CDT, Weight senna 8.6 2021-0 Yes 8.6 mg = 1 Me moria mg oral 9-21 tab, PO, l tablet 18:39: Daily, X Constantia 30 day, # 30 tab, 0 Refill(s), Pharmacy: [facility] #[id number], 165.1, cm, 07/22/22 17:29:00 CDT, Height, 55.568, kg, 07/22/22 17:29:00 CDT, Weight doxycycline 2021-0 No 100 mg = 2 Memoria hyclate 50 9-21 tab, PO, l mg oral 18:39: [id number], X Herm chandu tablet 00 2 day, # 8 tab, 0 Refill(s), Pharmacy: [facility] #[id number], 165.1, cm, 07/22/22 17:29:00 CDT, Height, 55.568, kg, 07/22/22 17:29:00 CDT, Weight AMIODarone Yes 200 mg = 1 M emoria 200 mg oral 9-21 tab, PO, l tablet 18:39: Daily, # Syed 00 30 tab, 1 Refill(s), [id number], cm, 07/22/22 17:29:00 CDT, Height, 55.568, kg, 07/22/22 17:29:00 CDT, Weight atorvastati Yes 20 mg = 1 M emoria n 20 mg 9-21 tab, PO, l oral tablet 18:39: Bedtime, # Constantia 00 30 tab, 1 Refill(s), Pharmacy: [facility] #[id number], 165.1, cm, 07/22/22 17:29:00 CDT, Height, 55.568, kg, 07/22/22 17:29:00 CDT, Weight Keppra 250 Yes 250 mg = 1 M emoria mg oral 9-21 tab, PO, l tablet 18:39: BID, # 60 Johnny n 00 tab, 1 Refill(s), Pharmacy: [facility] #[id number], 165.1, cm, 07/22/22 17:29:00 CDT, Height, 55.568, kg, 07/22/22 17:29:00 CDT, Weight levothyroxi Yes 100 Memori a ne 100 mcg 9-21 microgram l (0.1 mg) 18:39: = 1 tab, Allyn nn oral tablet 00 PO, Daily, # 30 tab, 1 Refill(s), Pharmacy: [facility] #[id number], 165.1, cm, 07/22/22 17:29:00 CDT, Height, 55.568, kg, 07/22/22 17:29:00 CDT, Weight ocular 0 Yes 2 drops, Memoria lubricant 9-21 BOTH EYES, l solution 18:39: 5X Day, # Herm chandu 00 30 mL, 1 Refill(s), Pharmacy: [facility] #[id number], 165.1, cm, 07/22/22 17:29:00 CDT, Height, 55.568, kg, 07/22/22 17:29:00 CDT, Weight apixaban 2021-0 Yes 2.5 mg = 1 Mem oria 2.5 mg oral 9-21 tab, PO, l tablet 18:39: Q12H, For Johnny n 00 Atrial Fibrillati on, # 60 tab, 1 Refill(s), [id number] 165.1, cm, 07/22/22 17:29:00 CDT, Height, 55.568, kg, 07/22/22 17:29:00 CDT, Weight aspirin 81 2021-0 Yes 81 mg = 1 Me moria mg tablet, 9-21 tab, PO, l enteric 18:39: Daily, # Johnny n coated 00 30 tab, 1 Refill(s), [id number] 165.[facility], cm, 07/22/22 17:29:00 CDT, Height, 55.568, kg, 07/22/22 17:29:00 CDT, Weight cephalexin 0 Yes 250 mg = 1 M emoria 250 mg oral 9-21 cap, PO, l capsule 18:39: Daily, X Johnny n 00 30 day, # 30 cap, 1 Refill(s), Pharmacy: [id number], 165.1, cm, 07/22/22 17:29:00 CDT, Height, 55.568, kg, 07/22/22 17:29:00 CDT, Weight magnesium 2021-0 Yes 1.2 gm = Ervin marybel hydroxide 9-21 15 mL, PO, l 8% oral 18:39: Bedtime, X Herm chandu suspension 00 30 day, # 450 mL, 1 Refill(s), Pharmacy: [facility] #[id number], 165.1, cm, 07/22/22 17:29:00 CDT, Height, 55.568, kg, 07/22/22 17:29:00 CDT, Weight melatonin 3 2021-0 Yes 9 mg = 3 Me moria mg oral 9-21 tab, PO, l tablet 18:39: Bedtime, X Allyn nn 00 30 day, # 90 tab, 1 Refill(s), Pharmacy: [id number], 165.1, cm, 07/22/22 17:29:00 CDT, Height, 55.568, kg, 07/22/22 17:29:00 CDT, Weight polyethylen 2021-0 Yes 17 gm, PO, Memoria e glycol 9-21 Daily, X l 3350 oral 18:39: 30 day, # Her feng powder for 00 255 gm, 0 reconstitut Refill(s), ion Pharmacy: [facility] #[id number], 165.1, cm, 07/22/22 17:29:00 CDT, Height, 55.568, kg, 07/22/22 17:29:00 CDT, Weight senna 8.6 Yes 8.6 mg = 1 Me moria mg oral 9-21 tab, PO, l tablet 18:39: Daily, X Constantia 00 30 day, # 30 tab, 0 Refill(s), Pharmacy: [facility] #[id number], 165.1, cm, 07/22/22 17:29:00 CDT, Height, 55.568, kg, 07/22/22 17:29:00 CDT, Weight doxycycline 2021-0 No 100 mg = 2 Memoria hyclate 50 9-21 tab, PO, l mg oral 18:39: [id number], X Herm chandu tablet 00 2 day, # 8 tab, 0 Refill(s), [id number] 165.1, cm, 07/22/22 17:29:00 CDT, Height, 55.568, kg, 07/22/22 17:29:00 CDT, Weight AMIODarone 0 Yes 200 mg = 1 M emoria 200 mg oral 9-21 tab, PO, l tablet 18:39: Daily, # Syed 00 30 tab, 1 Refill(s), Pharmacy: [facility] #[id number], 165.1, cm, 07/22/22 17:29:00 CDT, Height, 55.568, kg, 07/22/22 17:29:00 CDT, Weight atorvastati 0 Yes 20 mg = 1 M emoria n 20 mg 9-21 tab, PO, l oral tablet 18:39: Bedtime, # Constantia 00 30 tab, 1 Refill(s), Pharmacy: [facility] #[id number], 165.1, cm, 07/22/22 17:29:00 CDT, Height, 55.568, kg, 07/22/22 17:29:00 CDT, Weight Keppra 250 0 Yes 250 mg = 1 M emoria mg oral 9-21 tab, PO, l tablet 18:39: BID, # 60 Johnny n 00 tab, 1 Refill(s), Pharmacy: [facility] #[id number], 165.1, cm, 07/22/22 17:29:00 CDT, Height, 55.568, kg, 07/22/22 17:29:00 CDT, Weight levothyroxi Yes 100 Memori a ne 100 mcg 9-21 microgram l (0.1 mg) 18:39: = 1 tab, Allyn nn oral tablet 00 PO, Daily, # 30 tab, 1 Refill(s), Pharmacy: [facility] #[id number], 165.1, cm, 07/22/22 17:29:00 CDT, Height, 55.568, kg, 07/22/22 17:29:00 CDT, Weight ocular 0 Yes 2 drops, Memoria lubricant 9- BOTH EYES, l solution 18:39: 5X Day, # Herm chandu 00 30 mL, 1 Refill(s), Pharmacy: [facility] #[id number], 165.1, cm, 07/22/22 17:29:00 CDT, Height, 55.568, kg, 07/22/22 17:29:00 CDT, Weight apixaban 0 Yes 2.5 mg = 1 Mem oria 2.5 mg oral 9-21 tab, PO, l tablet 18:39: Q12H, For Johnny n 00 Atrial Fibrillati on, # 60 tab, 1 Refill(s), Pharmacy: [facility] #[id number], 165.1, cm, 07/22/22 17:29:00 CDT, Height, 55.568, kg, 07/22/22 17:29:00 CDT, Weight aspirin 81 2021-0 Yes 81 mg = 1 Me moria mg tablet, 9-21 tab, PO, l enteric 18:39: Daily, # Johnny n coated 00 30 tab, 1 Refill(s), [id number] 165.1, cm, 07/22/22 17:29:00 CDT, Height, 55.568, kg, 07/22/22 17:29:00 CDT, Weight cephalexin 2021-0 Yes 250 mg = 1 M emoria 250 mg oral 9-21 cap, PO, l capsule 18:39: Daily, X Johnny n 30 day, # 30 cap, 1 Refill(s), Pharmacy: [facility] #[id number], 165.1, cm, 07/22/22 17:29:00 CDT, Height, 55.568, kg, 07/22/22 17:29:00 CDT, Weight magnesium 2021-0 Yes 1.2 gm = Ervin marybel hydroxide -21 15 mL, PO, l 8% oral 18:39: Bedtime, X Herm chandu suspension 30 day, # 450 mL, 1 Refill(s), Pharmacy: [facility] #[id number], 165.1, cm, 07/22/22 17:29:00 CDT, Height, 55.568, kg, 07/22/22 17:29:00 CDT, Weight melatonin 3 2021-0 Yes 9 mg = 3 Me moria mg oral 9-21 tab, PO, l tablet 18:39: Bedtime, X Allyn nn 30 day, # 90 tab, 1 Refill(s), Pharmacy: [facility] #[id number], 165.1, cm, 07/22/22 17:29:00 CDT, Height, 55.568, kg, 07/22/22 17:29:00 CDT, Weight polyethylen 2021-0 Yes 17 gm, PO, Memoria e glycol 9-21 Daily, X l 3350 oral 18:39: 30 day, # Her feng powder for 00 255 gm, 0 reconstitut Refill(s), ion Pharmacy: [facility] #[id number], 165.1, cm, 07/22/22 17:29:00 CDT, Height, 55.568, kg, 07/22/22 17:29:00 CDT, Weight senna 8.6 2021-0 Yes 8.6 mg = 1 Me moria mg oral 9-21 tab, PO, l tablet 18:39: Daily, X Constantia 00 30 day, # 30 tab, 0 Refill(s), Pharmacy: [facility] #[id number], 165.1, cm, 07/22/22 17:29:00 CDT, Height, 55.568, kg, 07/22/22 17:29:00 CDT, Weight doxycycline No 100 mg = 2 Memoria hyclate 50 9-21 tab, PO, l mg oral 18:39: [id number], X Herm chandu tablet 00 2 day, # 8 tab, 0 Refill(s), Pharmacy: [facility] #[id number], 165.1, cm, 07/22/22 17:29:00 CDT, Height, 55.568, kg, 07/22/22 17:29:00 CDT, Weight AMIODarone Yes 200 mg = 1 M emoria 200 mg oral 9-21 tab, PO, l tablet 18:39: Daily, # Syed 00 30 tab, 1 Refill(s), [id number] 165.1, cm, 07/22/22 17:29:00 CDT, Height, 55.568, kg, 07/22/22 17:29:00 CDT, Weight atorvastati 0 Yes 20 mg = 1 M emoria n 20 mg 9-21 tab, PO, l oral tablet 18:39: Bedtime, # Constantia 00 30 tab, 1 Refill(s), Pharmacy: [facility] #[id number], 165.1, cm, 07/22/22 17:29:00 CDT, Height, 55.568, kg, 07/22/22 17:29:00 CDT, Weight Keppra 250 0 Yes 250 mg = 1 M emoria mg oral 9-21 tab, PO, l tablet 18:39: BID, # 60 Johnny n 00 tab, 1 Refill(s), Pharmacy: [facility] #[id number], 165.1, cm, 07/22/22 17:29:00 CDT, Height, 55.568, kg, 07/22/22 17:29:00 CDT, Weight levothyroxi 2021-0 Yes 100 Memori a ne 100 mcg 9-21 microgram l (0.1 mg) 18:39: = 1 tab, Allyn nn oral tablet 00 PO, Daily, # 30 tab, 1 Refill(s), Pharmacy: [facility] #[id number], 165.1, cm, 07/22/22 17:29:00 CDT, Height, 55.568, kg, 07/22/22 17:29:00 CDT, Weight ocular 2021-0 Yes 2 drops, Memoria lubricant 08-01 BOTH EYES, l solution 18:39: 5X Day, # Herm chandu 00 30 mL, 1 Refill(s), Pharmacy: [facility] #[id number], 165.1, cm, 07/22/22 17:29:00 CDT, Height, 55.568, kg, 07/22/22 17:29:00 CDT, Weight apixaban Yes 2.5 mg = 1 Mem oria 2.5 mg oral -21 tab, PO, l tablet 18:39: Q12H, For Johnny n 00 Atrial Fibrillati on, # 60 tab, 1 Refill(s), Pharmacy: [facility] #[id number], 165.1, cm, 07/22/22 17:29:00 CDT, Height, 55.568, kg, 07/22/22 17:29:00 CDT, Weight aspirin 81 2021-0 Yes 81 mg = 1 Me moria mg tablet, 9-21 tab, PO, l enteric 18:39: Daily, # Johnny n coated 00 30 tab, 1 Refill(s), Pharmacy: [facility] #[id number], 165.1, cm, 07/22/22 17:29:00 CDT, Height, 55.568, kg, 07/22/22 17:29:00 CDT, Weight cephalexin 0 Yes 250 mg = 1 M emoria 250 mg oral 9-21 cap, PO, l capsule 18:39: Daily, X Johnny n 00 30 day, # 30 cap, 1 Refill(s), Pharmacy: [facility] #[id number], 165.1, cm, 07/22/22 17:29:00 CDT, Height, 55.568, kg, 07/22/22 17:29:00 CDT, Weight magnesium 2021-0 Yes 1.2 gm = Ervin marybel hydroxide 9-21 15 mL, PO, l 8% oral 18:39: Bedtime, X Herm chandu suspension 00 30 day, # 450 mL, 1 Refill(s), [id number] 165.1, cm, 07/22/22 17:29:00 CDT, Height, 55.568, kg, 07/22/22 17:29:00 CDT, Weight melatonin 3 2021-0 Yes 9 mg = 3 Me moria mg oral 9-21 tab, PO, l tablet 18:39: Bedtime, X Allyn nn 30 day, # 90 tab, 1 Refill(s), Pharmacy: [facility] #[id number], 165.1, cm, 07/22/22 17:29:00 CDT, Height, 55.568, kg, 07/22/22 17:29:00 CDT, Weight polyethylen 2021-0 Yes 17 gm, PO, Memoria e glycol 9-21 Daily, X l 3350 oral 18:39: 30 day, # Her feng powder for 00 255 gm, 0 reconstitut Refill(s), [id number] 165.1, cm, 07/22/22 17:29:00 CDT, Height, 55.568, kg, 07/22/22 17:29:00 CDT, Weight senna 8.6 2021-0 Yes 8.6 mg = 1 Me moria mg oral 9-21 tab, PO, l tablet 18:39: Daily, X Constantia 30 day, # 30 tab, 0 Refill(s), Pharmacy: [facility] #[id number], 165.1, cm, 07/22/22 17:29:00 CDT, Height, 55.568, kg, 07/22/22 17:29:00 CDT, Weight doxycycline 2021-0 No 100 mg = 2 Memoria hyclate 50 9-21 tab, PO, l mg oral 18:39: [id number], X Herm chandu tablet 00 2 day, # 8 tab, 0 Refill(s), Pharmacy: [facility] #[id number], 165.1, cm, 07/22/22 17:29:00 CDT, Height, 55.568, kg, 07/22/22 17:29:00 CDT, Weight AMIODarone Yes 200 mg = 1 M emoria 200 mg oral 9-21 tab, PO, l tablet 18:39: Daily, # Constantia 00 30 tab, 1 Refill(s), Pharmacy: [facility] #[id number], 165.1, cm, 07/22/22 17:29:00 CDT, Height, 55.568, kg, 07/22/22 17:29:00 CDT, Weight atorvastati Yes 20 mg = 1 M emoria n 20 mg 9-21 tab, PO, l oral tablet 18:39: Bedtime, # Syed 00 30 tab, 1 Refill(s), Pharmacy: [facility] #[id number], 165.1, cm, 07/22/22 17:29:00 CDT, Height, 55.568, kg, 07/22/22 17:29:00 CDT, Weight Keppra 250 Yes 250 mg = 1 M emoria mg oral 9-21 tab, PO, l tablet 18:39: BID, # 60 Johnny n 00 tab, 1 Refill(s), Pharmacy: [facility] #[id number], 165.1, cm, 07/22/22 17:29:00 CDT, Height, 55.568, kg, 07/22/22 17:29:00 CDT, Weight levothyroxi Yes 100 Memori a ne 100 mcg 9-21 microgram l (0.1 mg) 18:39: = 1 tab, Allyn nn oral tablet 00 PO, Daily, # 30 tab, 1 Refill(s), Pharmacy: [facility] #[id number], 165.1, cm, 07/22/22 17:29:00 CDT, Height, 55.568, kg, 07/22/22 17:29:00 CDT, Weight ocular 0 Yes 2 drops, Memoria lubricant 9-21 BOTH EYES, l solution 18:39: 5X Day, # Herm chandu 00 30 mL, 1 Refill(s), Pharmacy: [facility] #[id number], 165.1, cm, 07/22/22 17:29:00 CDT, Height, 55.568, kg, 07/22/22 17:29:00 CDT, Weight apixaban 2021-0 Yes 2.5 mg = 1 Mem oria 2.5 mg oral 9-21 tab, PO, l tablet 18:39: Q12H, For Johnny n 00 Atrial Fibrillati on, # 60 tab, 1 Refill(s), Pharmacy: [facility] #[id number], 165.1, cm, 07/22/22 17:29:00 CDT, Height, 55.568, kg, 07/22/22 17:29:00 CDT, Weight aspirin 81 2021-0 Yes 81 mg = 1 Me moria mg tablet, 9-21 tab, PO, l enteric 18:39: Daily, # Johnny n coated 00 30 tab, 1 Refill(s), Pharmacy: [facility] #[id number], 165.1, cm, 07/22/22 17:29:00 CDT, Height, 55.568, kg, 07/22/22 17:29:00 CDT, Weight cephalexin 2021-0 Yes 250 mg = 1 M emoria 250 mg oral 9-21 cap, PO, l capsule 18:39: Daily, X Johnny n 00 30 day, # 30 cap, 1 Refill(s), Pharmacy: [facility] #[id number], 165.1, cm, 07/22/22 17:29:00 CDT, Height, 55.568, kg, 07/22/22 17:29:00 CDT, Weight magnesium 2021-0 Yes 1.2 gm = Ervin marybel hydroxide 9-21 15 mL, PO, l 8% oral 18:39: Bedtime, X Herm chandu suspension 00 30 day, # 450 mL, 1 Refill(s), Pharmacy: [facility] #[id number], 165.1, cm, 07/22/22 17:29:00 CDT, Height, 55.568, kg, 07/22/22 17:29:00 CDT, Weight melatonin 3 2021-0 Yes 9 mg = 3 Me moria mg oral 9-21 tab, PO, l tablet 18:39: Bedtime, X Allyn nn 00 30 day, # 90 tab, 1 Refill(s), Pharmacy: [id number], 165.1, cm, 07/22/22 17:29:00 CDT, Height, 55.568, kg, 07/22/22 17:29:00 CDT, Weight polyethylen 2021-0 Yes 17 gm, PO, Memoria e glycol 9-21 Daily, X l 3350 oral 18:39: 30 day, # Her feng powder for 00 255 gm, 0 reconstitut Refill(s), ion Pharmacy: [facility] #[id number], 165.1, cm, 07/22/22 17:29:00 CDT, Height, 55.568, kg, 07/22/22 17:29:00 CDT, Weight senna 8.6 Yes 8.6 mg = 1 Me moria mg oral -21 tab, PO, l tablet 18:39: Daily, X Constantia 00 30 day, # 30 tab, 0 Refill(s), [id number] 165.1, cm, 07/22/22 17:29:00 CDT, Height, 55.568, kg, 07/22/22 17:29:00 CDT, Weight doxycycline 2021-0 No 100 mg = 2 Memoria hyclate 50 -21 tab, PO, l mg oral 18:39: [id number], X Herm chandu tablet 00 2 day, # 8 tab, 0 Refill(s), [id number] 165.1, cm, 07/22/22 17:29:00 CDT, Height, 55.568, kg, 07/22/22 17:29:00 CDT, Weight AMIODarone 0 Yes 200 mg = 1 M emoria 200 mg oral 9-21 tab, PO, l tablet 18:39: Daily, # Syed 00 30 tab, 1 Refill(s), [id number] 165.1, cm, 07/22/22 17:29:00 CDT, Height, 55.568, kg, 07/22/22 17:29:00 CDT, Weight atorvastati 2022-0 Yes 20 mg = 1 M emoria n 20 mg 9-21 tab, PO, l oral tablet 18:39: Bedtime, # Syed 00 30 tab, 1 Refill(s), Pharmacy: [facility] #[id number], 165.1, cm, 07/22/22 17:29:00 CDT, Height, 55.568, kg, 07/22/22 17:29:00 CDT, Weight Keppra 250 0 Yes 250 mg = 1 M emoria mg oral 9-21 tab, PO, l tablet 18:39: BID, # 60 Johnny n 00 tab, 1 Refill(s), Pharmacy: [facility] #[id number], 165.1, cm, 07/22/22 17:29:00 CDT, Height, 55.568, kg, 07/22/22 17:29:00 CDT, Weight levothyroxi Yes 100 Memori a ne 100 mcg 9-21 microgram l (0.1 mg) 18:39: = 1 tab, Allyn nn oral tablet 00 PO, Daily, # 30 tab, 1 Refill(s), Pharmacy: [facility] #[id number], 165.1, cm, 07/22/22 17:29:00 CDT, Height, 55.568, kg, 07/22/22 17:29:00 CDT, Weight ocular 0 Yes 2 drops, Memoria lubricant 9- BOTH EYES, l solution 18:39: 5X Day, # Herm chandu 00 30 mL, 1 Refill(s), Pharmacy: [facility] #[id number], 165.1, cm, 07/22/22 17:29:00 CDT, Height, 55.568, kg, 07/22/22 17:29:00 CDT, Weight apixaban 0 Yes 2.5 mg = 1 Mem oria 2.5 mg oral 9-21 tab, PO, l tablet 18:39: Q12H, For Johnny n 00 Atrial Fibrillati on, # 60 tab, 1 Refill(s), Pharmacy: [facility] #[id number], 165.1, cm, 07/22/22 17:29:00 CDT, Height, 55.568, kg, 07/22/22 17:29:00 CDT, Weight aspirin 81 2021-0 Yes 81 mg = 1 Me moria mg tablet, -21 tab, PO, l enteric 18:39: Daily, # Johnny n coated 30 tab, 1 Refill(s), [id number] 165.1, cm, 07/22/22 17:29:00 CDT, Height, 55.568, kg, 07/22/22 17:29:00 CDT, Weight cephalexin 2021-0 Yes 250 mg = 1 M emoria 250 mg oral -21 cap, PO, l capsule 18:39: Daily, X Johnny n 00 30 day, # 30 cap, 1 Refill(s), Pharmacy: [facility] #[id number], 165.1, cm, 07/22/22 17:29:00 CDT, Height, 55.568, kg, 07/22/22 17:29:00 CDT, Weight magnesium 2021-0 Yes 1.2 gm = Ervin marybel hydroxide 08-01 15 mL, PO, l 8% oral 18:39: Bedtime, X Herm chandu suspension 30 day, # 450 mL, 1 Refill(s), [id number] 165.1, cm, 07/22/22 17:29:00 CDT, Height, 55.568, kg, 07/22/22 17:29:00 CDT, Weight melatonin 3 2021-0 Yes 9 mg = 3 Me moria mg oral -21 tab, PO, l tablet 18:39: Bedtime, X Allyn nn 30 day, # 90 tab, 1 Refill(s), Pharmacy: [facility] #[id number], 165.1, cm, 07/22/22 17:29:00 CDT, Height, 55.568, kg, 07/22/22 17:29:00 CDT, Weight polyethylen 2021-0 Yes 17 gm, PO, Memoria e glycol -21 Daily, X l 3350 oral 18:39: 30 day, # Her feng powder for 00 255 gm, 0 reconstitut Refill(s), ion Pharmacy: [facility] #[id number], 165.1, cm, 07/22/22 17:29:00 CDT, Height, 55.568, kg, 07/22/22 17:29:00 CDT, Weight senna 8.6 2021-0 Yes 8.6 mg = 1 Me moria mg oral 9-21 tab, PO, l tablet 18:39: Daily, X Syed 00 30 day, # 30 tab, 0 Refill(s), Pharmacy: [id number], 165.1, cm, 07/22/22 17:29:00 CDT, Height, 55.568, kg, 07/22/22 17:29:00 CDT, Weight doxycycline No 100 mg = 2 Memoria hyclate 50 9-21 tab, PO, l mg oral 18:39: [id number], X Herm chandu tablet 00 2 day, # 8 tab, 0 Refill(s), Pharmacy: [facility] #[id number], 165.1, cm, 07/22/22 17:29:00 CDT, Height, 55.568, kg, 07/22/22 17:29:00 CDT, Weight AMIODarone Yes 200 mg = 1 M emoria 200 mg oral 9-21 tab, PO, l tablet 18:39: Daily, # Syed 00 30 tab, 1 Refill(s), Pharmacy: [id number], 165.1, cm, 07/22/22 17:29:00 CDT, Height, 55.568, kg, 07/22/22 17:29:00 CDT, Weight atorvastati 0 Yes 20 mg = 1 M emoria n 20 mg 9-21 tab, PO, l oral tablet 18:39: Bedtime, # Constantia 00 30 tab, 1 Refill(s), Pharmacy: [id number], 165.1, cm, 07/22/22 17:29:00 CDT, Height, 55.568, kg, 07/22/22 17:29:00 CDT, Weight Keppra 250 Yes 250 mg = 1 M emoria mg oral 9-21 tab, PO, l tablet 18:39: BID, # 60 Johnny n 00 tab, 1 Refill(s), Pharmacy: [facility] #[id number], 165.1, cm, 07/22/22 17:29:00 CDT, Height, 55.568, kg, 07/22/22 17:29:00 CDT, Weight levothyroxi Yes 100 Memori a ne 100 mcg 9-21 microgram l (0.1 mg) 18:39: = 1 tab, Allyn nn oral tablet 00 PO, Daily, # 30 tab, 1 Refill(s), Pharmacy: [facility] #[id number], 165.1, cm, 07/22/22 17:29:00 CDT, Height, 55.568, kg, 07/22/22 17:29:00 CDT, Weight ocular Yes 2 drops, Memoria lubricant 08-01 BOTH EYES, l solution 18:39: 5X Day, # Herm chandu 00 30 mL, 1 Refill(s), Pharmacy: [facility] #[id number], 165.1, cm, 07/22/22 17:29:00 CDT, Height, 55.568, kg, 07/22/22 17:29:00 CDT, Weight apixaban Yes 2.5 mg = 1 Mem oria 2.5 mg oral -21 tab, PO, l tablet 18:39: Q12H, For Johnny n 00 Atrial Fibrillati on, # 60 tab, 1 Refill(s), Pharmacy: [facility] #[id number], 165.1, cm, 07/22/22 17:29:00 CDT, Height, 55.568, kg, 07/22/22 17:29:00 CDT, Weight aspirin 81 2021-0 Yes 81 mg = 1 Me moria mg tablet, 9-21 tab, PO, l enteric 18:39: Daily, # Johnny n coated 00 30 tab, 1 Refill(s), Pharmacy: [facility] #[id number], 165.1, cm, 07/22/22 17:29:00 CDT, Height, 55.568, kg, 07/22/22 17:29:00 CDT, Weight cephalexin Yes 250 mg = 1 M emoria 250 mg oral 9-21 cap, PO, l capsule 18:39: Daily, X Johnny n 00 30 day, # 30 cap, 1 Refill(s), Pharmacy: [facility] #[id number], 165.1, cm, 07/22/22 17:29:00 CDT, Height, 55.568, kg, 07/22/22 17:29:00 CDT, Weight magnesium 2021-0 Yes 1.2 gm = Ervin marybel hydroxide 9-21 15 mL, PO, l 8% oral 18:39: Bedtime, X Herm chandu suspension 00 30 day, # 450 mL, 1 Refill(s), Pharmacy: [facility] #[id number], 165.1, cm, 07/22/22 17:29:00 CDT, Height, 55.568, kg, 07/22/22 17:29:00 CDT, Weight melatonin 3 2021-0 Yes 9 mg = 3 Me moria mg oral 9-21 tab, PO, l tablet 18:39: Bedtime, X Allyn nn 30 day, # 90 tab, 1 Refill(s), Pharmacy: [facility] #[id number], 165.1, cm, 07/22/22 17:29:00 CDT, Height, 55.568, kg, 07/22/22 17:29:00 CDT, Weight polyethylen 2021-0 Yes 17 gm, PO, Memoria e glycol 9-21 Daily, X l 3350 oral 18:39: 30 day, # Her feng powder for 00 255 gm, 0 reconstitut Refill(s), ion Pharmacy: [facility] #[id number], 165.1, cm, 07/22/22 17:29:00 CDT, Height, 55.568, kg, 07/22/22 17:29:00 CDT, Weight senna 8.6 2021-0 Yes 8.6 mg = 1 Me moria mg oral 9-21 tab, PO, l tablet 18:39: Daily, X Syed 00 30 day, # 30 tab, 0 Refill(s), Pharmacy: [facility] #[id number], 165.1, cm, 07/22/22 17:29:00 CDT, Height, 55.568, kg, 07/22/22 17:29:00 CDT, Weight doxycycline 2-0 No 100 mg = 2 Memoria hyclate 50 9-21 tab, PO, l mg oral 18:39: [id number], X Herm chandu tablet 00 2 day, # 8 tab, 0 Refill(s), Pharmacy: [facility] #[id number], 165.1, cm, 07/22/22 17:29:00 CDT, Height, 55.568, kg, 07/22/22 17:29:00 CDT, Weight AMIODarone Yes 200 mg = 1 M emoria 200 mg oral 9-21 tab, PO, l tablet 18:39: Daily, # Syed 00 30 tab, 1 Refill(s), Pharmacy: [facility] #[id number], 165.1, cm, 07/22/22 17:29:00 CDT, Height, 55.568, kg, 07/22/22 17:29:00 CDT, Weight atorvastati Yes 20 mg = 1 M emoria n 20 mg 9-21 tab, PO, l oral tablet 18:39: Bedtime, # Syed 00 30 tab, 1 Refill(s), Pharmacy: [facility] #[id number], 165.1, cm, 07/22/22 17:29:00 CDT, Height, 55.568, kg, 07/22/22 17:29:00 CDT, Weight Keppra 250 Yes 250 mg = 1 M emoria mg oral 9-21 tab, PO, l tablet 18:39: BID, # 60 Johnny n 00 tab, 1 Refill(s), Pharmacy: [facility] #[id number], 165.1, cm, 07/22/22 17:29:00 CDT, Height, 55.568, kg, 07/22/22 17:29:00 CDT, Weight levothyroxi Yes 100 Memori a ne 100 mcg 9-21 microgram l (0.1 mg) 18:39: = 1 tab, Allyn nn oral tablet 00 PO, Daily, # 30 tab, 1 Refill(s), Pharmacy: [facility] #[id number], 165.1, cm, 07/22/22 17:29:00 CDT, Height, 55.568, kg, 07/22/22 17:29:00 CDT, Weight ocular 0 Yes 2 drops, Memoria lubricant 9-21 BOTH EYES, l solution 18:39: 5X Day, # Herm chandu 00 30 mL, 1 Refill(s), Pharmacy: [facility] #[id number], 165.1, cm, 07/22/22 17:29:00 CDT, Height, 55.568, kg, 07/22/22 17:29:00 CDT, Weight apixaban 2021-0 Yes 2.5 mg = 1 Mem oria 2.5 mg oral 9-21 tab, PO, l tablet 18:39: Q12H, For Johnny n 00 Atrial Fibrillati on, # 60 tab, 1 Refill(s), Pharmacy: [facility] #[id number], 165.1, cm, 07/22/22 17:29:00 CDT, Height, 55.568, kg, 07/22/22 17:29:00 CDT, Weight aspirin 81 2021-0 Yes 81 mg = 1 Me moria mg tablet, 9-21 tab, PO, l enteric 18:39: Daily, # Johnny n coated 00 30 tab, 1 Refill(s), Pharmacy: [facility] #[id number], 165.1, cm, 07/22/22 17:29:00 CDT, Height, 55.568, kg, 07/22/22 17:29:00 CDT, Weight cephalexin 2021-0 Yes 250 mg = 1 M emoria 250 mg oral 9-21 cap, PO, l capsule 18:39: Daily, X Johnny n 00 30 day, # 30 cap, 1 Refill(s), Pharmacy: [facility] #[id number], 165.1, cm, 07/22/22 17:29:00 CDT, Height, 55.568, kg, 07/22/22 17:29:00 CDT, Weight magnesium 2021-0 Yes 1.2 gm = Ervin marybel hydroxide 9-21 15 mL, PO, l 8% oral 18:39: Bedtime, X Herm chandu suspension 00 30 day, # 450 mL, 1 Refill(s), Pharmacy: [facility] #[id number], 165.1, cm, 07/22/22 17:29:00 CDT, Height, 55.568, kg, 07/22/22 17:29:00 CDT, Weight melatonin 3 2021-0 Yes 9 mg = 3 Me moria mg oral 9-21 tab, PO, l tablet 18:39: Bedtime, X Allyn nn 00 30 day, # 90 tab, 1 Refill(s), Pharmacy: [facility] #[id number], 165.1, cm, 07/22/22 17:29:00 CDT, Height, 55.568, kg, 07/22/22 17:29:00 CDT, Weight polyethylen 2021-0 Yes 17 gm, PO, Memoria e glycol 9-21 Daily, X l 3350 oral 18:39: 30 day, # Her feng powder for 00 255 gm, 0 reconstitut Refill(s), ion Pharmacy: [facility] #[id number], 165.1, cm, 07/22/22 17:29:00 CDT, Height, 55.568, kg, 07/22/22 17:29:00 CDT, Weight senna 8.6 2021-0 Yes 8.6 mg = 1 Me moria mg oral 9-21 tab, PO, l tablet 18:39: Daily, X Constantia 30 day, # 30 tab, 0 Refill(s), Pharmacy: [facility] #[id number], 165.1, cm, 07/22/22 17:29:00 CDT, Height, 55.568, kg, 07/22/22 17:29:00 CDT, Weight doxycycline 2021-0 No 100 mg = 2 Memoria hyclate 50 9-21 tab, PO, l mg oral 18:39: [id number], X Herm chandu tablet 00 2 day, # 8 tab, 0 Refill(s), Pharmacy: [facility] #[id number], 165.1, cm, 07/22/22 17:29:00 CDT, Height, 55.568, kg, 07/22/22 17:29:00 CDT, Weight AMIODarone 2021-0 Yes 200 mg = 1 M emoria 200 mg oral 9-21 tab, PO, l tablet 18:39: Daily, # Syed 00 30 tab, 1 Refill(s), Pharmacy: [facility] #[id number], 165.1, cm, 07/22/22 17:29:00 CDT, Height, 55.568, kg, 07/22/22 17:29:00 CDT, Weight atorvastati 0 Yes 20 mg = 1 M emoria n 20 mg 9-21 tab, PO, l oral tablet 18:39: Bedtime, # Syed 00 30 tab, 1 Refill(s), Pharmacy: [facility] #[id number], 165.1, cm, 07/22/22 17:29:00 CDT, Height, 55.568, kg, 07/22/22 17:29:00 CDT, Weight Keppra 250 0 Yes 250 mg = 1 M emoria mg oral 9-21 tab, PO, l tablet 18:39: BID, # 60 Johnny n 00 tab, 1 Refill(s), Pharmacy: [facility] #[id number], 165.1, cm, 07/22/22 17:29:00 CDT, Height, 55.568, kg, 07/22/22 17:29:00 CDT, Weight levothyroxi Yes 100 Memori a ne 100 mcg 9-21 microgram l (0.1 mg) 18:39: = 1 tab, Allyn nn oral tablet 00 PO, Daily, # 30 tab, 1 Refill(s), Pharmacy: [facility] #[id number], 165.1, cm, 07/22/22 17:29:00 CDT, Height, 55.568, kg, 07/22/22 17:29:00 CDT, Weight ocular Yes 2 drops, Memoria lubricant 9-21 BOTH EYES, l solution 18:39: 5X Day, # Herm chandu 00 30 mL, 1 Refill(s), Pharmacy: [facility] #[id number], 165.1, cm, 07/22/22 17:29:00 CDT, Height, 55.568, kg, 07/22/22 17:29:00 CDT, Weight apixaban 0 Yes 2.5 mg = 1 Mem oria 2.5 mg oral 9-21 tab, PO, l tablet 18:39: Q12H, For Johnny n 00 Atrial Fibrillati on, # 60 tab, 1 Refill(s), Pharmacy: [facility] #[id number], 165.1, cm, 07/22/22 17:29:00 CDT, Height, 55.568, kg, 07/22/22 17:29:00 CDT, Weight aspirin 81 2021-0 Yes 81 mg = 1 Me moria mg tablet, -21 tab, PO, l enteric 18:39: Daily, # Johnny n coated 30 tab, 1 Refill(s), [id number] 165.1, cm, 07/22/22 17:29:00 CDT, Height, 55.568, kg, 07/22/22 17:29:00 CDT, Weight cephalexin 2021-0 Yes 250 mg = 1 M emoria 250 mg oral -21 cap, PO, l capsule 18:39: Daily, X Johnny n 00 30 day, # 30 cap, 1 Refill(s), Pharmacy: [facility] #[id number], 165.1, cm, 07/22/22 17:29:00 CDT, Height, 55.568, kg, 07/22/22 17:29:00 CDT, Weight magnesium 2021-0 Yes 1.2 gm = Ervin marybel hydroxide - 15 mL, PO, l 8% oral 18:39: Bedtime, X Herm chandu suspension 30 day, # 450 mL, 1 Refill(s), [id number], cm, 07/22/22 17:29:00 CDT, Height, 55.568, kg, 07/22/22 17:29:00 CDT, Weight melatonin 3 2021-0 Yes 9 mg = 3 Me moria mg oral -21 tab, PO, l tablet 18:39: Bedtime, X Allyn nn 30 day, # 90 tab, 1 Refill(s), Pharmacy: [facility] #[id number], 165.1, cm, 07/22/22 17:29:00 CDT, Height, 55.568, kg, 07/22/22 17:29:00 CDT, Weight polyethylen 2021-0 Yes 17 gm, PO, Memoria e glycol 9-21 Daily, X l 3350 oral 18:39: 30 day, # Her feng powder for 00 255 gm, 0 reconstitut Refill(s), ion Pharmacy: [facility] #[id number], 165.1, cm, 07/22/22 17:29:00 CDT, Height, 55.568, kg, 07/22/22 17:29:00 CDT, Weight senna 8.6 2021-0 Yes 8.6 mg = 1 Me moria mg oral 9-21 tab, PO, l tablet 18:39: Daily, X Syed 00 30 day, # 30 tab, 0 Refill(s), Pharmacy: [id number], 165.1, cm, 07/22/22 17:29:00 CDT, Height, 55.568, kg, 07/22/22 17:29:00 CDT, Weight doxycycline No 100 mg = 2 Memoria hyclate 50 9-21 tab, PO, l mg oral 18:39: [id number], X Herm chandu tablet 00 2 day, # 8 tab, 0 Refill(s), Pharmacy: [facility] #[id number], 165.1, cm, 07/22/22 17:29:00 CDT, Height, 55.568, kg, 07/22/22 17:29:00 CDT, Weight AMIODarone Yes 200 mg = 1 M emoria 200 mg oral 9-21 tab, PO, l tablet 18:39: Daily, # Constantia 00 30 tab, 1 Refill(s), Pharmacy: [facility] #[id number], 165.1, cm, 07/22/22 17:29:00 CDT, Height, 55.568, kg, 07/22/22 17:29:00 CDT, Weight atorvastati Yes 20 mg = 1 M emoria n 20 mg 9-21 tab, PO, l oral tablet 18:39: Bedtime, # Constantia 00 30 tab, 1 Refill(s), Pharmacy: [id number], 165.1, cm, 07/22/22 17:29:00 CDT, Height, 55.568, kg, 07/22/22 17:29:00 CDT, Weight Keppra 250 Yes 250 mg = 1 M emoria mg oral 9-21 tab, PO, l tablet 18:39: BID, # 60 Johnny n 00 tab, 1 Refill(s), Pharmacy: [facility] #[id number], 165.1, cm, 07/22/22 17:29:00 CDT, Height, 55.568, kg, 07/22/22 17:29:00 CDT, Weight levothyroxi 0 Yes 100 Memori a ne 100 mcg 9-21 microgram l (0.1 mg) 18:39: = 1 tab, Allyn nn oral tablet 00 PO, Daily, # 30 tab, 1 Refill(s), Pharmacy: [facility] #[id number], 165.1, cm, 07/22/22 17:29:00 CDT, Height, 55.568, kg, 07/22/22 17:29:00 CDT, Weight ocular 0 Yes 2 drops, Memoria lubricant 08-01 BOTH EYES, l solution 18:39: 5X Day, # Herm chandu 00 30 mL, 1 Refill(s), Pharmacy: [facility] #[id number], 165.1, cm, 07/22/22 17:29:00 CDT, Height, 55.568, kg, 07/22/22 17:29:00 CDT, Weight apixaban Yes 2.5 mg = 1 Mem oria 2.5 mg oral -21 tab, PO, l tablet 18:39: Q12H, For Johnny n 00 Atrial Fibrillati on, # 60 tab, 1 Refill(s), Pharmacy: [facility] #[id number], 165.1, cm, 07/22/22 17:29:00 CDT, Height, 55.568, kg, 07/22/22 17:29:00 CDT, Weight aspirin 81 2021-0 Yes 81 mg = 1 Me moria mg tablet, -21 tab, PO, l enteric 18:39: Daily, # Johnny n coated 00 30 tab, 1 Refill(s), Pharmacy: [facility] #[id number], 165.1, cm, 07/22/22 17:29:00 CDT, Height, 55.568, kg, 07/22/22 17:29:00 CDT, Weight cephalexin 0 Yes 250 mg = 1 M emoria 250 mg oral 9-21 cap, PO, l capsule 18:39: Daily, X Johnny n 00 30 day, # 30 cap, 1 Refill(s), Pharmacy: [facility] #[id number], 165.1, cm, 07/22/22 17:29:00 CDT, Height, 55.568, kg, 07/22/22 17:29:00 CDT, Weight magnesium 2021-0 Yes 1.2 gm = Ervin marybel hydroxide 9-21 15 mL, PO, l 8% oral 18:39: Bedtime, X Herm chandu suspension 30 day, # 450 mL, 1 Refill(s), Pharmacy: [facility] #[id number], 165.1, cm, 07/22/22 17:29:00 CDT, Height, 55.568, kg, 07/22/22 17:29:00 CDT, Weight melatonin 3 2021-0 Yes 9 mg = 3 Me moria mg oral 9-21 tab, PO, l tablet 18:39: Bedtime, X Allyn nn 30 day, # 90 tab, 1 Refill(s), Pharmacy: [facility] #[id number], 165.1, cm, 07/22/22 17:29:00 CDT, Height, 55.568, kg, 07/22/22 17:29:00 CDT, Weight polyethylen 2021-0 Yes 17 gm, PO, Memoria e glycol 9-21 Daily, X l 3350 oral 18:39: 30 day, # Her feng powder for 00 255 gm, 0 reconstitut Refill(s), ion Pharmacy: [facility] #[id number], 165.1, cm, 07/22/22 17:29:00 CDT, Height, 55.568, kg, 07/22/22 17:29:00 CDT, Weight senna 8.6 2021-0 Yes 8.6 mg = 1 Me moria mg oral 9-21 tab, PO, l tablet 18:39: Daily, X Constantia 30 day, # 30 tab, 0 Refill(s), Pharmacy: [facility] #[id number], 165.1, cm, 07/22/22 17:29:00 CDT, Height, 55.568, kg, 07/22/22 17:29:00 CDT, Weight doxycycline 2021-0 No 100 mg = 2 Memoria hyclate 50 9-21 tab, PO, l mg oral 18:39: [id number], X Herm chandu tablet 00 2 day, # 8 tab, 0 Refill(s), Pharmacy: [facility] #[id number], 165.1, cm, 07/22/22 17:29:00 CDT, Height, 55.568, kg, 07/22/22 17:29:00 CDT, Weight AMIODarone Yes 200 mg = 1 M emoria 200 mg oral 9-21 tab, PO, l tablet 18:39: Daily, # Syed 00 30 tab, 1 Refill(s), Pharmacy: [facility] #[id number], 165.1, cm, 07/22/22 17:29:00 CDT, Height, 55.568, kg, 07/22/22 17:29:00 CDT, Weight atorvastati Yes 20 mg = 1 M emoria n 20 mg 9-21 tab, PO, l oral tablet 18:39: Bedtime, # Constantia 00 30 tab, 1 Refill(s), Pharmacy: [facility] #[id number], 165.1, cm, 07/22/22 17:29:00 CDT, Height, 55.568, kg, 07/22/22 17:29:00 CDT, Weight Keppra 250 Yes 250 mg = 1 M emoria mg oral 9-21 tab, PO, l tablet 18:39: BID, # 60 Johnny n 00 tab, 1 Refill(s), Pharmacy: [facility] #[id number], 165.1, cm, 07/22/22 17:29:00 CDT, Height, 55.568, kg, 07/22/22 17:29:00 CDT, Weight levothyroxi 0 Yes 100 Memori a ne 100 mcg 9-21 microgram l (0.1 mg) 18:39: = 1 tab, Allyn nn oral tablet 00 PO, Daily, # 30 tab, 1 Refill(s), Pharmacy: [facility] #[id number], 165.1, cm, 07/22/22 17:29:00 CDT, Height, 55.568, kg, 07/22/22 17:29:00 CDT, Weight ocular 0 Yes 2 drops, Memoria lubricant 9-21 BOTH EYES, l solution 18:39: 5X Day, # Herm chandu 00 30 mL, 1 Refill(s), Pharmacy: [facility] #[id number], 165.1, cm, 07/22/22 17:29:00 CDT, Height, 55.568, kg, 07/22/22 17:29:00 CDT, Weight apixaban 2021-0 Yes 2.5 mg = 1 Mem oria 2.5 mg oral 9-21 tab, PO, l tablet 18:39: Q12H, For Johnny n 00 Atrial Fibrillati on, # 60 tab, 1 Refill(s), Pharmacy: [facility] #[id number], 165.1, cm, 07/22/22 17:29:00 CDT, Height, 55.568, kg, 07/22/22 17:29:00 CDT, Weight aspirin 81 2021-0 Yes 81 mg = 1 Me moria mg tablet, 9-21 tab, PO, l enteric 18:39: Daily, # Johnny n coated 00 30 tab, 1 Refill(s), Pharmacy: [facility] #[id number], 165.1, cm, 07/22/22 17:29:00 CDT, Height, 55.568, kg, 07/22/22 17:29:00 CDT, Weight cephalexin 2021-0 Yes 250 mg = 1 M emoria 250 mg oral -21 cap, PO, l capsule 18:39: Daily, X Johnny n 00 30 day, # 30 cap, 1 Refill(s), Pharmacy: [facility] #[id number], 165.1, cm, 07/22/22 17:29:00 CDT, Height, 55.568, kg, 07/22/22 17:29:00 CDT, Weight magnesium 2021-0 Yes 1.2 gm = Ervin marybel hydroxide 9-21 15 mL, PO, l 8% oral 18:39: Bedtime, X Herm chandu suspension 00 30 day, # 450 mL, 1 Refill(s), Pharmacy: [facility] #[id number], 165.1, cm, 07/22/22 17:29:00 CDT, Height, 55.568, kg, 07/22/22 17:29:00 CDT, Weight melatonin 3 2022-0 Yes 9 mg = 3 Me moria mg oral 9-21 tab, PO, l tablet 18:39: Bedtime, X Allyn nn 00 30 day, # 90 tab, 1 Refill(s), Pharmacy: [facility] #[id number], 165.1, cm, 07/22/22 17:29:00 CDT, Height, 55.568, kg, 07/22/22 17:29:00 CDT, Weight polyethylen 2021-0 Yes 17 gm, PO, Memoria e glycol 9-21 Daily, X l 3350 oral 18:39: 30 day, # Her feng powder for 00 255 gm, 0 reconstitut Refill(s), ion Pharmacy: [facility] #[id number], 165.1, cm, 07/22/22 17:29:00 CDT, Height, 55.568, kg, 07/22/22 17:29:00 CDT, Weight senna 8.6 2021-0 Yes 8.6 mg = 1 Me moria mg oral 9-21 tab, PO, l tablet 18:39: Daily, X Constantia 30 day, # 30 tab, 0 Refill(s), Pharmacy: [facility] #[id number], 165.1, cm, 07/22/22 17:29:00 CDT, Height, 55.568, kg, 07/22/22 17:29:00 CDT, Weight doxycycline 2021-0 No 100 mg = 2 Memoria hyclate 50 9-21 tab, PO, l mg oral 18:39: [id number], X Herm chandu tablet 00 2 day, # 8 tab, 0 Refill(s), [id number] 165.1, cm, 07/22/22 17:29:00 CDT, Height, 55.568, kg, 07/22/22 17:29:00 CDT, Weight AMIODarone 2021-0 Yes 200 mg = 1 M emoria 200 mg oral 9-21 tab, PO, l tablet 18:39: Daily, # Syed 00 30 tab, 1 Refill(s), Pharmacy: [facility] #[id number], 165.1, cm, 07/22/22 17:29:00 CDT, Height, 55.568, kg, 07/22/22 17:29:00 CDT, Weight atorvastati Yes 20 mg = 1 M emoria n 20 mg 9-21 tab, PO, l oral tablet 18:39: Bedtime, # Constantia 00 30 tab, 1 Refill(s), Pharmacy: [facility] #[id number], 165.1, cm, 07/22/22 17:29:00 CDT, Height, 55.568, kg, 07/22/22 17:29:00 CDT, Weight Keppra 250 Yes 250 mg = 1 M emoria mg oral 9-21 tab, PO, l tablet 18:39: BID, # 60 Johnny n 00 tab, 1 Refill(s), Pharmacy: [facility] #[id number], 165.1, cm, 07/22/22 17:29:00 CDT, Height, 55.568, kg, 07/22/22 17:29:00 CDT, Weight levothyroxi Yes 100 Memori a ne 100 mcg 9-21 microgram l (0.1 mg) 18:39: = 1 tab, Allyn nn oral tablet 00 PO, Daily, # 30 tab, 1 Refill(s), Pharmacy: [facility] #[id number], 165.1, cm, 07/22/22 17:29:00 CDT, Height, 55.568, kg, 07/22/22 17:29:00 CDT, Weight ocular Yes 2 drops, Memoria lubricant 9-21 BOTH EYES, l solution 18:39: 5X Day, # Herm chandu 00 30 mL, 1 Refill(s), Pharmacy: [facility] #[id number], 165.1, cm, 07/22/22 17:29:00 CDT, Height, 55.568, kg, 07/22/22 17:29:00 CDT, Weight doxycycline No Notes: NO M emoria 9-20 MILK/ANTAC l 20:00: IDS/IRON Syed 00 Take 1 hour before or 2 hours after dairy products doxycycline No Notes: NO M emoria 9-20 MILK/ANTAC l 20:00: IDS/IRON Syed 00 Take 1 hour before or 2 hours after dairy products doxycycline 2022-0 No Notes: NO M emoria 9-20 MILK/ANTAC l 20:00: IDS/IRON Syed 00 Take 1 hour before or 2 hours after dairy products doxycycline 2021-0 No Notes: NO M emoria 9-20 MILK/ANTAC l 20:00: IDS/IRON Syed 00 Take 1 hour before or 2 hours after dairy products doxycycline 2021-0 No Notes: NO M emoria 9-20 MILK/ANTAC l 20:00: IDS/IRON Syed 00 Take 1 hour before or 2 hours after dairy products doxycycline 2021-0 No Notes: NO M emoria 9-20 MILK/ANTAC l 20:00: IDS/IRON Syed 00 Take 1 hour before or 2 hours after dairy products doxycycline 2021-0 No Notes: NO M emoria 9-20 MILK/ANTAC l 20:00: IDS/IRON Constantia 00 Take 1 hour before or 2 hours after dairy products doxycycline 2021-0 No Notes: NO M emoria 9-20 MILK/ANTAC l 20:00: IDS/IRON Syed 00 Take 1 hour before or 2 hours after dairy products doxycycline 2021-0 No Notes: NO M emoria 9-20 MILK/ANTAC l 20:00: IDS/IRON Syed 00 Take 1 hour before or 2 hours after dairy products doxycycline 2021-0 No Notes: NO M emoria 9-20 MILK/ANTAC l 20:00: IDS/IRON Syed 00 Take 1 hour before or 2 hours after dairy products doxycycline 2021-0 No Notes: NO M emoria 9-20 MILK/ANTAC l 20:00: IDS/IRON Syed 00 Take 1 hour before or 2 hours after dairy products [place] 5/325 0 No Notes: Ervin marybel oral tablet 9-20 (Same as: l 16:33: [place] Syed 00 325/5) Do not exceed 4gm/day of acetaminop hen. [place] 5/325 No Notes: Ervin marybel oral tablet 9-20 (Same as: l 16:33: [place] Syed 00 325/5) Do not exceed 4gm/day of acetaminop hen. [place] 5/325 No Notes: Ervin marybel oral tablet 9-20 (Same as: l 16:33: [place] Syed 00 325/5) Do not exceed 4gm/day of acetaminop hen. [place] No Notes: Ervin marybel oral tablet 9-20 (Same as: l 16:33: [place] Constantia 325/5) Do not exceed 4gm/day of acetaminop hen. [place] No Notes: Ervin marybel oral tablet 9-20 (Same as: l 16:33: [place] Constantia 325/5) Do not exceed 4gm/day of acetaminop hen. [place] No Notes: Ervin marybel oral tablet 9-20 (Same as: l 16:33: [place] Syed 325/5) Do not exceed 4gm/day of acetaminop hen. [place] No Notes: Ervin marybel oral tablet 9-20 (Same as: l 16:33: [place] Constantia 325/5) Do not exceed 4gm/day of acetaminop hen. [place] No Notes: Ervin marybel oral tablet 9-20 (Same as: l 16:33: [place] Syed 325/5) Do not exceed 4gm/day of acetaminop hen. [place] No Notes: Ervin marybel oral tablet 9-20 (Same as: l 16:33: [place] Constantia 325/5) Do not exceed 4gm/day of acetaminop hen. [place] No Notes: Ervin marybel oral tablet 9-20 (Same as: l 16:33: [place] Syed 325/5) Do not exceed 4gm/day of acetaminop hen. [place] No Notes: Ervin marybel oral tablet 9-20 (Same as: l 16:33: [place] Constantia 325/5) Do not exceed 4gm/day of acetaminop hen. Milk of No Notes: Memoria Magnesia 9-20 (Same as: l 02:00: Milk of Syed 00 Magnesia, MOM) Milk of No Notes: Memoria Magnesia 9-20 (Same as: l 02:00: Milk of Constantia 00 Magnesia, MOM) Milk of No Notes: Memoria Magnesia 9-20 (Same as: l 02:00: Milk of Syed 00 Magnesia, MOM) Milk of No Notes: Memoria Magnesia 9-20 (Same as: l 02:00: Milk of Syed 00 Magnesia, MOM) Milk of No Notes: Memoria Magnesia 9-20 (Same as: l 02:00: Milk of Constantia 00 Magnesia, MOM) Milk of No Notes: Memoria Magnesia 9-20 (Same as: l 02:00: Milk of Constantia 00 Magnesia, MOM) Milk of No Notes: Memoria Magnesia 9-20 (Same as: l 02:00: Milk of Syed 00 Magnesia, MOM) Milk of No Notes: Memoria Magnesia 9-20 (Same as: l 02:00: Milk of Syed 00 Magnesia, MOM) Milk of No Notes: Memoria Magnesia 9-20 (Same as: l 02:00: Milk of Syed 00 Magnesia, MOM) Milk of No Notes: Memoria Magnesia 9-20 (Same as: l 02:00: Milk of Syed 00 Magnesia, MOM) Milk of No Notes: Memoria Magnesia 9-20 (Same as: l 02:00: Milk of Syed 00 Magnesia, MOM) acetaminoph No Notes: Do M emoria en 07-30 not exceed l 19:48: 4 gm/day. Constantia 00 (Same as: Tylenol) Biofreeze No Notes: Memori a 9- (Same as: l 19:48: Biofreeze) Syed acetaminoph No Notes: Do M emoria en 07-30 not exceed l 19:48: 4 gm/day. Syed 00 (Same as: Tylenol) Biofreeze No Notes: Memori a 9-19 (Same as: l 19:48: Biofreeze) Syed acetaminoph No Notes: Do M emoria en 07-30 not exceed l 19:48: 4 gm/day. Syed 00 (Same as: Tylenol) Biofreeze No Notes: Memori a 07-30 (Same as: l 19:48: Biofreeze) acetaminoph No Notes: Do M emoria en 07-30 not exceed l 19:48: 4 gm/day. (Same as: Tylenol) Biofreeze No Notes: Memori a 07-30 (Same as: l 19:48: Biofreeze) acetaminoph No Notes: Do M emoria en 07-30 not exceed l 19:48: 4 gm/day. Constantia 00 (Same as: Tylenol) Biofreeze No Notes: Memori a 07-30 (Same as: l 19:48: Biofreeze) acetaminoph No Notes: Do M emoria en 07-30 not exceed l 19:48: 4 gm/day. (Same as: Tylenol) Biofreeze No Notes: Memori a 07-30 (Same as: l 19:48: Biofreeze) acetaminoph No Notes: Do M emoria en 07-30 not exceed l 19:48: 4 gm/day. (Same as: Tylenol) Biofreeze No Notes: Memori a 07-30 (Same as: l 19:48: Biofreeze) acetaminoph No Notes: Do M emoria en 07-30 not exceed l 19:48: 4 gm/day. Constantia 00 (Same as: Tylenol) Biofreeze No Notes: Memori a 07-30 (Same as: l 19:48: Biofreeze) acetaminoph No Notes: Do M emoria en 07-30 not exceed l 19:48: 4 gm/day. Constantia 00 (Same as: Tylenol) Biofreeze No Notes: Memori a 07-30 (Same as: l 19:48: Biofreeze) acetaminoph No Notes: Do M emoria en 07-30 not exceed l 19:48: 4 gm/day. Constantia 00 (Same as: Tylenol) Biofreeze No Notes: Memori a 9-19 (Same as: l 19:48: Biofreeze) acetaminoph No Notes: Do M emoria en 07-30 not exceed l 19:48: 4 gm/day. Constantia 00 (Same as: Tylenol) Biofreeze No Notes: Memori a 9-19 (Same as: l 19:48: Biofreeze) senna No Notes: Memoria 9-19 (Same as: l 17:00: Senokot) senna No Notes: Memoria 9-19 (Same as: l 17:00: Senokot) senna No Notes: Memoria 9-19 (Same as: l 17:00: Senokot) senna No Notes: Memoria 9-19 (Same as: l 17:00: Senokot) senna No Notes: Memoria 9-19 (Same as: l 17:00: Senokot) senna No Notes: Memoria 9-19 (Same as: l 17:00: Senokot) senna No Notes: Memoria 9-19 (Same as: l 17:00: Senokot) senna No Notes: Memoria 9-19 (Same as: l 17:00: Senokot) senna No Notes: Memoria 9-19 (Same as: l 17:00: Senokot) senna No Notes: Memoria 9-19 (Same as: l 17:00: Senokot) senna No Notes: Memoria 9-19 (Same as: l 17:00: Senokot) Milk of No Notes: Memoria Magnesia 9-19 (Same as: l 00:10: Milk of Magnesia, MOM) Enemeez No Notes: Memoria Mini 283 mg 9-19 Same as l rectal 00:10: Enemeez Constantia enema 00 Milk of No Notes: Memoria Magnesia 9-19 (Same as: l 00:10: Milk of Constantia 00 Magnesia, MOM) Enemeez No Notes: Memoria Mini 283 mg 9-19 Same as l rectal 00:10: Enemeez Constantia enema 00 Milk of No Notes: Memoria Magnesia 9-19 (Same as: l 00:10: Milk of Syed 00 Magnesia, MOM) Enemeez No Notes: Memoria Mini 283 mg 9-19 Same as l rectal 00:10: Enemeez Syed enema 00 Milk of No Notes: Memoria Magnesia 9-19 (Same as: l 00:10: Milk of Syed 00 Magnesia, MOM) Enemeez No Notes: Memoria Mini 283 mg 9-19 Same as l rectal 00:10: Enemeez Syed enema 00 Milk of No Notes: Memoria Magnesia 9-19 (Same as: l 00:10: Milk of Syed 00 Magnesia, MOM) Enemeez No Notes: Memoria Mini 283 mg 9-19 Same as l rectal 00:10: Enemeez Syed enema 00 Milk of No Notes: Memoria Magnesia 9-19 (Same as: l 00:10: Milk of Syed 00 Magnesia, MOM) Enemeez No Notes: Memoria Mini 283 mg 9-19 Same as l rectal 00:10: Enemeez Constantia enema 00 Milk of No Notes: Memoria Magnesia 9-19 (Same as: l 00:10: Milk of Constantia 00 Magnesia, MOM) Enemeez No Notes: Memoria Mini 283 mg 9-19 Same as l rectal 00:10: Enemeez Constantia enema 00 Milk of No Notes: Memoria Magnesia 9-19 (Same as: l 00:10: Milk of Syed 00 Magnesia, MOM) Enemeez No Notes: Memoria Mini 283 mg 9-19 Same as l rectal 00:10: Enemeez Syed enema 00 Milk of No Notes: Memoria Magnesia 9-19 (Same as: l 00:10: Milk of Syed 00 Magnoneil, MOM) Enemeez No Notes: Memoria Mini 283 mg 9-19 Same as l rectal 00:10: Enemeez Syed enema 00 Milk of No Notes: Memoria Magnesia 9-19 (Same as: l 00:10: Milk of Syed 00 Magnoneil, MOM) Enemeez No Notes: Memoria Mini 283 mg 9-19 Same as l rectal 00:10: Enemeez Constantia enema 00 Milk of No Notes: Memoria Magnesia 9-19 (Same as: l 00:10: Milk of Constantia 00 Magnoneil, MOM) Enemeez No Notes: Memoria Mini 283 mg 9-19 Same as l rectal 00:10: Enemeez Constantia enema 00 SMOG Enema No 900 ml, Ervin marybel 9-18 Route: [place], l 23:59: Dosing Constantia 00 Weight 55.568, kg, ONCE, Start date: 07/29/22 18:59:00 CDT, Stop date: 07/29/22 18:59:00 CDT SMOG Enema 0 No 900 ml, Ervin marybel 9-18 Route: [place], l 23:59: Dosing Constantia 00 Weight 55.568, kg, ONCE, Start date: 07/29/22 18:59:00 CDT, Stop date: 07/29/22 18:59:00 CDT SMOG Enema 2021-0 No 900 ml, Ervin marybel 9-18 Route: [place], l 23:59: Dosing Constantia 00 Weight 55.568, kg, ONCE, Start date: 07/29/22 18:59:00 CDT, Stop date: 07/29/22 18:59:00 CDT SMOG Enema 0 No 900 ml, Ervin marybel 9-18 Route: [place], l 23:59: Dosing Constantia 00 Weight 55.568, kg, ONCE, Start date: 07/29/22 18:59:00 CDT, Stop date: 07/29/22 18:59:00 CDT SMOG Enema 2022-0 No 900 ml, Ervin marybel 9-18 Route: [place], l 23:59: Dosing Constantia 00 Weight 55.568, kg, ONCE, Start date: 07/29/22 18:59:00 CDT, Stop date: 07/29/22 18:59:00 CDT SMOG Enema 2022-0 No 900 ml, Ervin marybel 9-18 Route: [place], l 23:59: Dosing Constantia 00 Weight 55.568, kg, ONCE, Start date: 07/29/22 18:59:00 CDT, Stop date: 07/29/22 18:59:00 CDT SMOG Enema 2022-0 No 900 ml, Ervin marybel 9-18 Route: [place], l 23:59: Dosing Constantia 00 Weight 55.568, kg, ONCE, Start date: 07/29/22 18:59:00 CDT, Stop date: 07/29/22 18:59:00 CDT SMOG Enema 2022-0 No 900 ml, Ervin marybel 9-18 Route: [place], l 23:59: Dosing Constantia 00 Weight 55.568, kg, ONCE, Start date: 07/29/22 18:59:00 CDT, Stop date: 07/29/22 18:59:00 CDT SMOG Enema 2022-0 No 900 ml, Ervin marybel 9-18 Route: [place], l 23:59: Dosing Syed 00 Weight 55.568, kg, ONCE, Start date: 07/29/22 18:59:00 CDT, Stop date: 07/29/22 18:59:00 CDT SMOG Enema 2022-0 No 900 ml, Ervin marybel 9-18 Route: [place], l 23:59: Dosing Syed 00 Weight 55.568, kg, ONCE, Start date: 07/29/22 18:59:00 CDT, Stop date: 07/29/22 18:59:00 CDT SMOG Enema 2022-0 No 900 ml, Ervin marybel 9-18 Route: [place], l 23:59: Dosing Constantia 00 Weight 55.568, kg, ONCE, Start date: 07/29/22 18:59:00 CDT, Stop date: 09/18/22 18:59:00 CDT bisacodyl 2021-0 No Notes: Memori a 9-18 (Same As: l 19:46: Dulcolax, Constantia 00 Bisco-Lax) bisacodyl 2021-0 No Notes: Memori a 9-18 (Same As: l 19:46: Dulcolax, Constantia 00 Bisco-Lax) bisacodyl 2021-0 No Notes: Memori a 9-18 (Same As: l 19:46: Dulcolax, Constantia 00 Bisco-Lax) bisacodyl 2021-0 No Notes: Memori a 9-18 (Same As: l 19:46: Dulcolax, Syed 00 Bisco-Lax) bisacodyl 2021-0 No Notes: Memori a 9-18 (Same As: l 19:46: Dulcolax, Constantia 00 Bisco-Lax) bisacodyl 2021-0 No Notes: Memori a 9-18 (Same As: l 19:46: Dulcolax, Syed 00 Bisco-Lax) bisacodyl 2021-0 No Notes: Memori a 9-18 (Same As: l 19:46: Dulcolax, Syed 00 Bisco-Lax) bisacodyl 2021-0 No Notes: Memori a 9-18 (Same As: l 19:46: Dulcolax, Constantia 00 Bisco-Lax) bisacodyl 2021-0 No Notes: Memori a 9-18 (Same As: l 19:46: Dulcolax, Constantia 00 Bisco-Lax) bisacodyl 2021-0 No Notes: Memori a 9-18 (Same As: l 19:46: Dulcolax, Constantia 00 Bisco-Lax) bisacodyl 2021-0 No Notes: Memori a 9-18 (Same As: l 19:46: Dulcolax, Constantia 00 Bisco-Lax) Pepto-Bismo 2021-0 No Notes: Ervin marybel l 07-29 Same as l 18:08: Pepto-Bism Constantia 00 ol MS Pepto-Bismo 2021-0 No Notes: Ervin marybel l 07-29 Same as l 18:08: Pepto-Bism Syed 00 ol MS Pepto-Bismo 2022-0 No Notes: Ervin marybel l 9-18 Same as l 18:08: Pepto-Bism Syed 00 ol MS Pepto-Bismo 2-0 No Notes: Ervin marybel l 9-18 Same as l 18:08: Pepto-Bism Syed 00 ol MS Pepto-Bismo 2022-0 No Notes: Ervin marybel l 9-18 Same as l 18:08: Pepto-Bism Syed 00 ol MS Pepto-Bismo 2021-0 No Notes: Ervin marybel l 9-18 Same as l 18:08: Pepto-Bism [place] 00 ol MS Pepto-Bismo 2021-0 No Notes: Ervin marybel l 9-18 Same as l 18:08: Pepto-Bism Syed 00 ol MS Pepto-Bismo 2021-0 No Notes: Ervin marybel l 9-18 Same as l 18:08: Pepto-Bism [place] 00 ol MS Pepto-Bismo 2021-0 No Notes: Ervin marybel l 9-18 Same as l 18:08: Pepto-Bism [place] 00 ol MS Pepto-Bismo 2021-0 No Notes: Ervin marybel l 9-18 Same as l 18:08: Pepto-Bism [place] 00 ol MS Pepto-Bismo 2021-0 No Notes: Ervin marybel l 9-18 Same as l 18:08: Pepto-Bism Syed 00 ol MS [facility] [place] 5/325 0 No Notes: Ervin marybel oral tablet -18 (Same as: l 14:16: [facility] Constantia 00 325/5) Do not exceed 4gm/day of acetaminop hen. [facility] 5/325 0 No Notes: Ervin marybel oral tablet -18 (Same as: l 14:16: [facility] Syed 00 325/5) Do not exceed 4gm/day of acetaminop hen. [facility] 5/325 0 No Notes: Ervin marybel oral tablet -18 (Same as: l 14:16: [facility] Syed 00 325/5) Do not exceed 4gm/day of acetaminop hen. [facility] 5/325 0 No Notes: Ervin marybel oral tablet 9-18 (Same as: l 14:16: [facility] [place] 325/5) Do not exceed 4gm/day of acetaminop hen. [facility] No Notes: Ervin marybel oral tablet 9-18 (Same as: l 14:16: [facility] Syed 325/5) Do not exceed 4gm/day of acetaminop hen. [facility] No Notes: Ervin marybel oral tablet 9-18 (Same as: l 14:16: [facility] Constantia 325/5) Do not exceed 4gm/day of acetaminop hen. [facility] No Notes: Ervin marybel oral tablet 9-18 (Same as: l 14:16: [facility] [place] 325/5) Do not exceed 4gm/day of acetaminop hen. [facility] No Notes: Ervin marybel oral tablet 9-18 (Same as: l 14:16: [facility] [place] 325/5) Do not exceed 4gm/day of acetaminop hen. [facility] No Notes: Ervin marybel oral tablet 9-18 (Same as: l 14:16: [facility] Syed 325/5) Do not exceed 4gm/day of acetaminop hen. [facility] No Notes: Ervin marybel oral tablet 9-18 (Same as: l 14:16: [facility] [place] 325/5) Do not exceed 4gm/day of acetaminop hen. [facility] No Notes: Ervin marybel oral tablet -18 (Same as: l 14:16: [facility] Syed 325/5) Do not exceed 4gm/day of acetaminop hen. normal No 1,000 mL, Memori a saline 0.9% 07-29 Rate: 100 l IV 1,000 mL 13:16: ml/hr, Infuse over: 10 hr, Route: IV, Dosing Weight 55.568 kg, Total Volume: 1,000, Start date: 07/29/22 8:16:00 CDT, Duration: 1 day, Stop date: 07/30/22 8:15:00 CDT, BSA: 1.61 m2, 0 normal 2022-0 No 1,000 mL, Memori a saline 0.9% 9-18 Rate: 100 l IV 1,000 mL 13:16: ml/hr, Herm chandu 00 Infuse over: 10 hr, Route: IV, Dosing Weight 55.568 kg, Total Volume: 1,000, Start date: 07/29/22 8:16:00 CDT, Duration: 1 day, Stop date: 07/30/22 8:15:00 CDT, BSA: 1.61 m2, 0 normal 2022-0 No 1,000 mL, Memori a saline 0.9% 9-18 Rate: 100 l IV 1,000 mL 13:16: ml/hr, Herm chandu 00 Infuse over: 10 hr, Route: IV, Dosing Weight 55.568 kg, Total Volume: 1,000, Start date: 07/29/22 8:16:00 CDT, Duration: 1 day, Stop date: 07/30/22 8:15:00 CDT, BSA: 1.61 m2, 0 normal 2022-0 No 1,000 mL, Memori a saline 0.9% 9-18 Rate: 100 l IV 1,000 mL 13:16: ml/hr, Herm chandu 00 Infuse over: 10 hr, Route: IV, Dosing Weight 55.568 kg, Total Volume: 1,000, Start date: 07/29/22 8:16:00 CDT, Duration: 1 day, Stop date: 07/30/22 8:15:00 CDT, BSA: 1.61 m2, 0 normal 2022-0 No 1,000 mL, Memori a saline 0.9% 9-18 Rate: 100 l IV 1,000 mL 13:16: ml/hr, Herm chandu 00 Infuse over: 10 hr, Route: IV, Dosing Weight 55.568 kg, Total Volume: 1,000, Start date: 07/29/22 8:16:00 CDT, Duration: 1 day, Stop date: 07/30/22 8:15:00 CDT, BSA: 1.61 m2, 0 normal 2022-0 No 1,000 mL, Memori a saline 0.9% 9-18 Rate: 100 l IV 1,000 mL 13:16: ml/hr, Herm chandu 00 Infuse over: 10 hr, Route: IV, Dosing Weight 55.568 kg, Total Volume: 1,000, Start date: 07/29/22 8:16:00 CDT, Duration: 1 day, Stop date: 07/30/22 8:15:00 CDT, BSA: 1.61 m2, 0 normal 2022-0 No 1,000 mL, Memori a saline 0.9% 9-18 Rate: 100 l IV 1,000 mL 13:16: ml/hr, Herm chandu 00 Infuse over: 10 hr, Route: IV, Dosing Weight 55.568 kg, Total Volume: 1,000, Start date: 07/29/22 8:16:00 CDT, Duration: 1 day, Stop date: 07/30/22 8:15:00 CDT, BSA: 1.61 m2, 0 normal 2022-0 No 1,000 mL, Memori a saline 0.9% 9-18 Rate: 100 l IV 1,000 mL 13:16: ml/hr, Herm chandu 00 Infuse over: 10 hr, Route: IV, Dosing Weight 55.568 kg, Total Volume: 1,000, Start date: 07/29/22 8:16:00 CDT, Duration: 1 day, Stop date: 07/30/22 8:15:00 CDT, BSA: 1.61 m2, 0 normal 2022-0 No 1,000 mL, Memori a saline 0.9% 9-18 Rate: 100 l IV 1,000 mL 13:16: ml/hr, Herm chandu 00 Infuse over: 10 hr, Route: IV, Dosing Weight 55.568 kg, Total Volume: 1,000, Start date: 07/29/22 8:16:00 CDT, Duration: 1 day, Stop date: 07/30/22 8:15:00 CDT, BSA: 1.61 m2, 0 normal 2022-0 No 1,000 mL, Memori a saline 0.9% 9-18 Rate: 100 l IV 1,000 mL 13:16: ml/hr, Herm chandu 00 Infuse over: 10 hr, Route: IV, Dosing Weight 55.568 kg, Total Volume: 1,000, Start date: 07/29/22 8:16:00 CDT, Duration: 1 day, Stop date: 07/30/22 8:15:00 CDT, BSA: 1.61 m2, 0 normal 2021-0 No 1,000 mL, Memori a saline 0.9% 18 Rate: 100 l IV 1,000 mL 13:16: ml/hr, Infuse over: 10 hr, Route: IV, Dosing Weight 55.568 kg, Total Volume: 1,000, Start date: 07/29/22 8:16:00 CDT, Duration: 1 day, Stop date: 07/30/22 8:15:00 CDT, BSA: 1.61 m2, 0 clonazePAM 2021-0 No Notes: Memor ia 9-16 (Same as: l 01:00: KlonoPIN [place] ODT) [facility] 3:Reproduc tive risk Hazardous Drug -- Refer to safe handling procedure PPE Matrix clonazePAM 2021-0 No Notes: Memor ia 9-16 (Same as: l 01:00: KlonoPIN Syed ODT) [facility]ous Drug Group 3:Reproduc tive risk Hazardous Drug -- Refer to safe handling procedure PPE Matrix clonazePAM 2021-0 No Notes: Memor ia 9-16 (Same as: l 01:00: KlonoPIN [place] ODT) [facility] Drug Group 3:Reproduc tive risk Hazardous Drug -- Refer to safe handling procedure PPE Matrix clonazePAM 2021-0 No Notes: Memor ia 9-16 (Same as: l 01:00: KlonoPIN Syed ODT) [facility] Drug Group 3:Reproduc tive risk Hazardous Drug -- Refer to safe handling procedure PPE Matrix clonazePAM 2021-0 No Notes: Memor ia 9-16 (Same as: l 01:00: KlonoPIN [place] ODT) Haz[facility]ous Drug Group 3:Reproduc tive risk Hazardous Drug -- Refer to safe handling procedure PPE Matrix clonazePAM 2021-0 No Notes: Memor ia 9-16 (Same as: l 01:00: KlonoPIN Syed ODT) Hazardous Drug Group 3:Reproduc tive risk Hazardous Drug -- Refer to safe handling procedure PPE Matrix clonazePAM 2021-0 No Notes: Memor ia 9-16 (Same as: l 01:00: KlonoPIN [place] ODT) Haz[facility]ous Drug Group 3:Reproduc tive risk Hazardous Drug -- Refer to safe handling procedure PPE Matrix clonazePAM 2021-0 No Notes: Memor ia 9-16 (Same as: l 01:00: KlonoPIN Syed 00 ODT) Hazardous Drug Group 3:Reproduc tive risk Hazardous Drug -- Refer to safe handling procedure PPE Matrix clonazePAM No Notes: Memor ia 9-16 (Same as: l 01:00: KlonoPIN [place] 00 ODT) Hazardous Drug Group 3:Reproduc tive risk Hazardous Drug -- Refer to safe handling procedure PPE Matrix clonazePAM No Notes: Memor ia 9-16 (Same as: l 01:00: KlonoPIN Syed 00 ODT) Hazardous Drug Group 3:Reproduc tive risk Hazardous Drug -- Refer to safe handling procedure PPE Matrix clonazePAM No Notes: Memor ia 9-16 (Same as: l 01:00: KlonoPIN [place] 00 ODT) Hazardous Drug Group 3:Reproduc tive risk Hazardous Drug -- Refer to safe handling procedure PPE Matrix Biofreeze No Notes: Memori a 9-14 (Same as: l 18:00: Biofreeze) Syed Biofreeze No Notes: Memori a 9-14 (Same as: l 18:00: Biofreeze) [place] Biofreeze No Notes: Memori a 9-14 (Same as: l 18:00: Biofreeze) Syed Biofreeze No Notes: Memori a 9-14 (Same as: l 18:00: Biofreeze) [place] Biofreeze No Notes: Memori a 9-14 (Same as: l 18:00: Biofreeze) Syed Biofreeze No Notes: Memori a 9-14 (Same as: l 18:00: Biofreeze) Syed Biofreeze No Notes: Memori a 9-14 (Same as: l 18:00: Biofreeze) Syed Biofreeze No Notes: Memori a 9-14 (Same as: l 18:00: Biofreeze) Syed Biofreeze No Notes: Memori a 9-14 (Same as: l 18:00: Biofreeze) Biofreeze No Notes: Memori a 9-14 (Same as: l 18:00: Biofreeze) Syed 00 Biofreeze No Notes: Memori a 9-14 (Same as: l 18:00: Biofreeze) senna No Notes: Memoria 9-12 (Same as: l 17:00: Senokot) senna No Notes: Memoria 9-12 (Same as: l 17:00: Senokot) senna No Notes: Memoria 9-12 (Same as: l 17:00: Senokot) senna No Notes: Memoria 9-12 (Same as: l 17:00: Senokot) senna No Notes: Memoria 9-12 (Same as: l 17:00: Senokot) senna No Notes: Memoria 9-12 (Same as: l 17:00: Senokot) senna No Notes: Memoria 9-12 (Same as: l 17:00: Senokot) senna No Notes: Memoria 9-12 (Same as: l 17:00: Senokot) senna No Notes: Memoria 9-12 (Same as: l 17:00: Senokot) senna No Notes: Memoria 9-12 (Same as: l 17:00: Senokot) senna No Notes: Memoria 9-12 (Same as: l 17:00: Senokot) [facility] [place] 5/325 No Notes: Ervin marybel oral tablet 9-12 (Same as: l 14:34: [facility] [place] 325/5) Do not exceed 4gm/day of acetaminop hen. [facility] 5/325 No Notes: Ervin marybel oral tablet 9-12 (Same as: l 14:34: [facility] [place] 325/5) Do not exceed 4gm/day of acetaminop hen. [facility] 5/325 No Notes: Ervin marybel oral tablet 9-12 (Same as: l 14:34: [facility] Syed 00 325/5) Do not exceed 4gm/day of acetaminop hen. [facility] 5/325 0 No Notes: Ervin marybel oral tablet -12 (Same as: l 14:34: [facility] Syed 325/5) Do not exceed 4gm/day of acetaminop hen. [facility] 5/325 No Notes: Ervin marybel oral tablet -12 (Same as: l 14:34: [facility] [place] 325/5) Do not exceed 4gm/day of acetaminop hen. [facility] 5/325 No Notes: Ervin marybel oral tablet - (Same as: l 14:34: [facility] Syed 325/5) Do not exceed 4gm/day of acetaminop hen. [facility] 5/325 No Notes: Ervin marybel oral tablet -12 (Same as: l 14:34: [facility] Syed 325/5) Do not exceed 4gm/day of acetaminop hen. [facility] 5/325 No Notes: Ervin marybel oral tablet -12 (Same as: l 14:34: [facility] [place] 325/5) Do not exceed 4gm/day of acetaminop hen. [facility] 5/325 No Notes: Ervin marybel oral tablet -12 (Same as: l 14:34: [facility] [place] 325/5) Do not exceed 4gm/day of acetaminop hen. [facility] 5/325 No Notes: Ervin marybel oral tablet -12 (Same as: l 14:34: [facility] [place] 325/5) Do not exceed 4gm/day of acetaminop hen. [facility] 5/325 No Notes: Ervin marybel oral tablet - (Same as: l 14:34: [facility] Syed 00 325/5) Do not exceed 4gm/day of acetaminop hen. AMIODarone No Notes: Memor ia 07-23 (Same as: l 13:30: Cordarone) [place] 00 aspirin 81 No Notes: Do Me moria mg tablet, 9-12 not crush l enteric 13:30: or chew. Johnny n coated 00 (Same As: Ecotrin) cephalexin No Notes: Memor ia 9-12 Take on l 13:30: empty [place] 00 stomach. (Same As: Keflex) clonazePAM No Notes: Memor ia 9-12 (Same as: l 13:30: KlonoPIN Syed 00 ODT) Haz[facility]ous Drug Group 3:Reproduc tive risk Hazardous Drug -- Refer to safe handling procedure PPE Matrix MiraLax No Notes: Memoria 9-12 Dissolve l 13:30: in 8 oz of [place] 00 water or juice. (Same as: Miralax) senna 8.6 No Notes: Memori a mg oral 9-12 (Same as: l tablet 13:30: Senokot) [place] 00 docusate No Notes: Memoria 9-12 (Same as: l 13:30: Colace) [place] 00 (Do Not Crush) AMIODarone No Notes: Memor ia 9-12 (Same as: l 13:30: Cordarone) [place] 00 aspirin 81 No Notes: Do Me moria mg tablet, 9-12 not crush l enteric 13:30: or chew. Johnny n coated 00 (Same As: Ecotrin) cephalexin No Notes: Memor ia 9-12 Take on l 13:30: empty [place] 00 stomach. (Same As: Keflex) clonazePAM No Notes: Memor ia 9-12 (Same as: l 13:30: KlonoPIN [place] 00 ODT) Hazardous Drug Group 3:Reproduc tive risk Hazardous Drug -- Refer to safe handling procedure PPE Matrix MiraLax No Notes: Memoria 9-12 Dissolve l 13:30: in 8 oz of [place] 00 water or juice. (Same as: Miralax) senna 8.6 No Notes: Memori a mg oral 9-12 (Same as: l tablet 13:30: Senokot) Syed 00 docusate No Notes: Memoria 9-12 (Same as: l 13:30: Colace) Syed 00 (Do Not Crush) AMIODarone No Notes: Memor ia 9-12 (Same as: l 13:30: Cordarone) Syed 00 aspirin 81 No Notes: Do Me moria mg tablet, 9-12 not crush l enteric 13:30: or chew. Johnny n coated 00 (Same As: Ecotrin) cephalexin No Notes: Memor ia 9-12 Take on l 13:30: empty [place] 00 stomach. (Same As: Keflex) clonazePAM No Notes: Memor ia 9-12 (Same as: l 13:30: KlonoPIN [place] 00 ODT) [facility]ous Drug Group 3:Reproduc tive risk Hazardous Drug -- Refer to safe handling procedure PPE Matrix MiraLax No Notes: Memoria 9-12 Dissolve l 13:30: in 8 oz of Syed 00 water or juice. (Same as: Miralax) senna 8.6 No Notes: Memori a mg oral 9-12 (Same as: l tablet 13:30: Senokot) docusate No Notes: Memoria 9-12 (Same as: l 13:30: Colace) Syed 00 (Do Not Crush) AMIODarone No Notes: Memor ia 9-12 (Same as: l 13:30: Cordarone) Syed 00 aspirin 81 No Notes: Do Me moria mg tablet, 9-12 not crush l enteric 13:30: or chew. Johnny n coated 00 (Same As: Ecotrin) cephalexin No Notes: Memor ia 9-12 Take on l 13:30: empty Syed 00 stomach. (Same As: Keflex) clonazePAM No Notes: Memor ia 9-12 (Same as: l 13:30: KlonoPIN [place] 00 ODT) Hazardous Drug Group 3:Reproduc tive risk Hazardous Drug -- Refer to safe handling procedure PPE Matrix MiraLax No Notes: Memoria 9-12 Dissolve l 13:30: in 8 oz of Syde 00 water or juice. (Same as: Miralax) senna 8.6 No Notes: Memori a mg oral 9-12 (Same as: l tablet 13:30: Senokot) [place] 00 docusate No Notes: Memoria 9-12 (Same as: l 13:30: Colace) Syed 00 (Do Not Crush) AMIODarone No Notes: Memor ia 9-12 (Same as: l 13:30: Cordarone) [place] 00 aspirin 81 No Notes: Do Me moria mg tablet, 9-12 not crush l enteric 13:30: or chew. Johnny n coated 00 (Same As: Ecotrin) cephalexin No Notes: Memor ia 9-12 Take on l 13:30: empty Syed 00 stomach. (Same As: Keflex) clonazePAM No Notes: Memor ia 9-12 (Same as: l 13:30: KlonoPIN [place] 00 ODT) Hazardous Drug Group 3:Reproduc tive risk Hazardous Drug -- Refer to safe handling procedure PPE Matrix MiraLax No Notes: Memoria 9-12 Dissolve l 13:30: in 8 oz of [place] 00 water or juice. (Same as: Miralax) senna 8.6 No Notes: Memori a mg oral 9-12 (Same as: l tablet 13:30: Senokot) Syed 00 docusate No Notes: Memoria 9-12 (Same as: l 13:30: Colace) [place] 00 (Do Not Crush) AMIODarone No Notes: Memor ia 9-12 (Same as: l 13:30: Cordarone) Syed 00 aspirin 81 No Notes: Do Me moria mg tablet, 9-12 not crush l enteric 13:30: or chew. Johnny n coated 00 (Same As: Ecotrin) cephalexin No Notes: Memor ia 9-12 Take on l 13:30: empty [place] 00 stomach. (Same As: Keflex) clonazePAM No Notes: Memor ia 9-12 (Same as: l 13:30: KlonoPIN Syed 00 ODT) Hazardous Drug Group 3:Reproduc tive risk Hazardous Drug -- Refer to safe handling procedure PPE Matrix MiraLax No Notes: Memoria 9-12 Dissolve l 13:30: in 8 oz of Syed 00 water or juice. (Same as: Miralax) senna 8.6 No Notes: Memori a mg oral 9-12 (Same as: l tablet 13:30: Senokot) Syed 00 docusate No Notes: Memoria 9-12 (Same as: l 13:30: Colace) Syed 00 (Do Not Crush) AMIODarone No Notes: Memor ia 9-12 (Same as: l 13:30: Cordarone) Syed 00 aspirin 81 No Notes: Do Me moria mg tablet, 9-12 not crush l enteric 13:30: or chew. Johnny n coated 00 (Same As: Ecotrin) cephalexin No Notes: Memor ia 9-12 Take on l 13:30: empty [place] 00 stomach. (Same As: Keflex) clonazePAM No Notes: Memor ia 9-12 (Same as: l 13:30: KlonoPIN [place] 00 ODT) Hazardous Drug Group 3:Reproduc tive risk Hazardous Drug -- Refer to safe handling procedure PPE Matrix MiraLax No Notes: Memoria 9-12 Dissolve l 13:30: in 8 oz of [place] 00 water or juice. (Same as: Miralax) senna 8.6 No Notes: Memori a mg oral 9-12 (Same as: l tablet 13:30: Senokot) [place] 00 docusate No Notes: Memoria 9-12 (Same as: l 13:30: Colace) [place] 00 (Do Not Crush) AMIODarone No Notes: Memor ia 9-12 (Same as: l 13:30: Cordarone) [place] 00 aspirin 81 No Notes: Do Me moria mg tablet, 9-12 not crush l enteric 13:30: or chew. Johnny n coated 00 (Same As: Ecotrin) cephalexin No Notes: Memor ia 9-12 Take on l 13:30: empty [place] 00 stomach. (Same As: Keflex) clonazePAM No Notes: Memor ia 9-12 (Same as: l 13:30: KlonoPIN Syed 00 ODT) Hazardous Drug Group 3:Reproduc tive risk Hazardous Drug -- Refer to safe handling procedure PPE Matrix MiraLax No Notes: Memoria 9-12 Dissolve l 13:30: in 8 oz of [place] 00 water or juice. (Same as: Miralax) senna 8.6 No Notes: Memori a mg oral 9-12 (Same as: l tablet 13:30: Senokot) Syed 00 docusate No Notes: Memoria 9-12 (Same as: l 13:30: Colace) Syed 00 (Do Not Crush) AMIODarone No Notes: Memor ia 9-12 (Same as: l 13:30: Cordarone) [place] 00 aspirin 81 No Notes: Do Me moria mg tablet, 9-12 not crush l enteric 13:30: or chew. Johnny n coated 00 (Same As: Ecotrin) cephalexin No Notes: Memor ia 9-12 Take on l 13:30: empty Syed 00 stomach. (Same As: Keflex) clonazePAM No Notes: Memor ia 9-12 (Same as: l 13:30: KlonoPIN [place] 00 ODT) Hazardous Drug Group 3:Reproduc tive risk Hazardous Drug -- Refer to safe handling procedure PPE Matrix MiraLax No Notes: Memoria 9-12 Dissolve l 13:30: in 8 oz of [place] 00 water or juice. (Same as: Miralax) senna 8.6 No Notes: Memori a mg oral 9-12 (Same as: l tablet 13:30: Senokot) Syed 00 docusate No Notes: Memoria 9-12 (Same as: l 13:30: Colace) Syed 00 (Do Not Crush) AMIODarone No Notes: Memor ia 9-12 (Same as: l 13:30: Cordarone) [place] 00 aspirin 81 No Notes: Do Me moria mg tablet, 9-12 not crush l enteric 13:30: or chew. Johnny n coated 00 (Same As: Ecotrin) cephalexin No Notes: Memor ia 9-12 Take on l 13:30: empty Syed 00 stomach. (Same As: Keflex) clonazePAM No Notes: Memor ia 9-12 (Same as: l 13:30: KlonoPIN Syed 00 ODT) Hazardous Drug Group 3:Reproduc tive risk Hazardous Drug -- Refer to safe handling procedure PPE Matrix MiraLax No Notes: Memoria 9-12 Dissolve l 13:30: in 8 oz of Syed 00 water or juice. (Same as: Miralax) senna 8.6 No Notes: Memori a mg oral 9-12 (Same as: l tablet 13:30: Senokot) Syed 00 docusate No Notes: Memoria 9-12 (Same as: l 13:30: Colace) Syed 00 (Do Not Crush) AMIODarone No Notes: Memor ia 9-12 (Same as: l 13:30: Cordarone) Syed 00 aspirin 81 No Notes: Do Me moria mg tablet, 9-12 not crush l enteric 13:30: or chew. Johnny n coated 00 (Same As: Ecotrin) cephalexin No Notes: Memor ia 9-12 Take on l 13:30: empty Syed 00 stomach. (Same As: Keflex) clonazePAM No Notes: Memor ia 9-12 (Same as: l 13:30: KlonoPIN Syed 00 ODT) Hazardous Drug Group 3:Reproduc tive risk Hazardous Drug -- Refer to safe handling procedure PPE Matrix MiraLax No Notes: Memoria 9-12 Dissolve l 13:30: in 8 oz of [place]ia 00 water or juice. (Same as: Miralax) senna 8.6 No Notes: Memori a mg oral 9-12 (Same as: l tablet 13:30: Senokot) Syed 00 docusate No Notes: Memoria 9-12 (Same as: l 13:30: Colace) Constantia 00 (Do Not Crush) levothyroxi No Notes: Ervin marybel ne 9-12 Take 1 l 11:30: hour Constantia 00 before or 2 hours after meal; Enteral feeds may interefere with the absorption of this medication . (Same as:Levothr oid, Synthroid) levothyroxi No Notes: Ervin marybel ne 9-12 Take 1 l 11:30: hour Syed 00 before or 2 hours after meal; Enteral feeds may interefere with the absorption of this medication . (Same as:Levothr oid, Synthroid) levothyroxi No Notes: Ervin marybel ne 9-12 Take 1 l 11:30: hour Syed 00 before or 2 hours after meal; Enteral feeds may interefere with the absorption of this medication . (Same as:Levothr oid, Synthroid) levothyroxi No Notes: Ervin marybel ne 9-12 Take 1 l 11:30: hour Syed 00 before or 2 hours after meal; Enteral feeds may interefere with the absorption of this medication . (Same as:Levothr oid, Synthroid) levothyroxi No Notes: Ervin marybel ne 9-12 Take 1 l 11:30: hour Syed 00 before or 2 hours after meal; Enteral feeds may interefere with the absorption of this medication . (Same as:Levothr oid, Synthroid) levothyroxi No Notes: Ervin marybel ne 9-12 Take 1 l 11:30: hour [place]ia 00 before or 2 hours after meal; Enteral feeds may interefere with the absorption of this medication . (Same as:Levothr oid, Synthroid) levothyroxi No Notes: Ervin marybel ne 9-12 Take 1 l 11:30: hour [place]ia 00 before or 2 hours after meal; Enteral feeds may interefere with the absorption of this medication . (Same as:Levothr oid, Synthroid) levothyroxi No Notes: Ervin marybel ne 9-12 Take 1 l 11:30: hour Syed 00 before or 2 hours after meal; Enteral feeds may interefere with the absorption of this medication . (Same as:Levothr oid, Synthroid) levothyroxi No Notes: Ervin marybel ne 9-12 Take 1 l 11:30: hour Constantia 00 before or 2 hours after meal; Enteral feeds may interefere with the absorption of this medication . (Same as:Levothr oid, Synthroid) levothyroxi No Notes: Ervin marybel ne 9-12 Take 1 l 11:30: hour [place]ia 00 before or 2 hours after meal; Enteral feeds may interefere with the absorption of this medication . (Same as:Levothr oid, Synthroid) levothyroxi No Notes: Ervin marybel ne 9-12 Take 1 l 11:30: hour Syed 00 before or 2 hours after meal; Enteral feeds may interefere with the absorption of this medication . (Same as:Levothr oid, Synthroid) acetaminoph No Notes: Do M emoria en 9-12 not exceed l 05:00: 4 gm/day. (Same as: Tylenol) acetaminoph No Notes: Do M emoria en 9-12 not exceed l 05:00: 4 gm/day. (Same as: Tylenol) acetaminoph No Notes: Do M emoria en 9-12 not exceed l 05:00: 4 gm/day. (Same as: Tylenol) acetaminoph No Notes: Do M emoria en 9-12 not exceed l 05:00: 4 gm/day. (Same as: Tylenol) acetaminoph No Notes: Do M emoria en 9-12 not exceed l 05:00: 4 gm/day. (Same as: Tylenol) acetaminoph No Notes: Do M emoria en 9-12 not exceed l 05:00: 4 gm/day. (Same as: Tylenol) acetaminoph No Notes: Do M emoria en 9-12 not exceed l 05:00: 4 gm/day. (Same as: Tylenol) acetaminoph No Notes: Do M emoria en 9-12 not exceed l 05:00: 4 gm/day. Syed 00 (Same as: Tylenol) acetaminoph 0 No Notes: Do M emoria en 9-12 not exceed l 05:00: 4 gm/day. Constantia 00 (Same as: Tylenol) acetaminoph 0 No Notes: Do M emoria en 9-12 not exceed l 05:00: 4 gm/day. Syed 00 (Same as: Tylenol) acetaminoph 0 No Notes: Do M emoria en 9-12 not exceed l 05:00: 4 gm/day. Constantia 00 (Same as: Tylenol) Lubricant No Notes: Memori a Eye Drops 9-12 (Same as: l 03:00: Refresh [place] 00 Plus) Lubricant 0 No Notes: Memori a Eye Drops 9-12 (Same as: l 03:00: Refresh [place] 00 Plus) Lubricant 0 No Notes: Memori a Eye Drops 9-12 (Same as: l 03:00: Refresh [place] 00 Plus) Lubricant No Notes: Memori a Eye Drops 9-12 (Same as: l 03:00: Refresh Syed 00 Plus) Lubricant 0 No Notes: Memori a Eye Drops 9-12 (Same as: l 03:00: Refresh [place] 00 Plus) Lubricant 0 No Notes: [facility] 9-12 (Same as: l 03:00: Refresh Syed 00 Plus) Lubricant 0 No Notes: [facility] 9-12 (Same as: l 03:00: Refresh Constantia 00 Plus) Lubricant 0 No Notes: [facility] 9-12 (Same as: l 03:00: Refresh Constantia 00 Plus) Lubricant 0 No Notes: [facility] 9-12 (Same as: l 03:00: Refresh Constantia 00 Plus) Lubricant 0 No Notes: [facility] 9-12 (Same as: l 03:00: Refresh Syed 00 Plus) Lubricant 0 No Notes: [facility] 9-12 (Same as: l 03:00: Refresh Syed 00 Plus) Refresh Dry 0 No Notes: [facility] 9-12 (Same as: l ophthalmic 02:03: Refresh Herm chandu solution 00 Plus) Refresh Dry No Notes: [facility] 9-12 (Same as: l ophthalmic 02:03: Refresh Herm chandu solution 00 Plus) Refresh Dry No Notes: [facility] 9 (Same as: l ophthalmic 02:03: Refresh Herm chandu solution 00 Plus) Refresh Dry No Notes: [facility] 9- (Same as: l ophthalmic 02:03: Refresh Herm chandu solution 00 Plus) Refresh Dry No Notes: [facility] 9 (Same as: l ophthalmic 02:03: Refresh Herm chandu solution 00 Plus) Refresh Dry No Notes: Ervin [facility] 07-23 (Same as: l ophthalmic 02:03: Refresh Herm chandu solution 00 Plus) Refresh Dry No Notes: Er[facility] 9- (Same as: l ophthalmic 02:03: Refresh Herm chandu solution 00 Plus) Refresh Dry No Notes: [facility] 07-23 (Same as: l ophthalmic 02:03: Refresh Herm chandu solution 00 Plus) Refresh Dry No Notes: [facility] 07-23 (Same as: l ophthalmic 02:03: Refresh Herm chandu solution 00 Plus) Refresh Dry No Notes: [facility] 07-23 (Same as: l ophthalmic 02:03: Refresh Herm chandu solution 00 Plus) Refresh Dry No Notes: [facility] 07-23 (Same as: l ophthalmic 02:03: Refresh Herm chandu solution 00 Plus) apixaban No Notes: [facility] 07-23 Same as: l 02:00: Eliquis Syed 00 atorvastati No Notes: Ervin marybel n 07-23 (Same As: l 02:00: Lipitor) Constantia 00 Keppra 250 No Notes: Memor ia mg oral 07-23 (Same l tablet 02:00: as:Keppra) Allyn nn 00 apixaban No Notes: [facility] 9-12 Same as: l 02:00: Eliquis Constantia atorvastati No Notes: Ervin marybel n 9-12 (Same As: l 02:00: Lipitor) Constantia Keppra 250 No Notes: [facility] mg oral 9-12 (Same l tablet 02:00: as:Keppra) Allyn nn apixaban No Notes: [facility] 9-12 Same as: l 02:00: Eliquis Syed atorvastati No Notes: Ervin marybel n 9-12 (Same As: l 02:00: Lipitor) Syed Keppra 250 No Notes: [facility] mg oral 9-12 (Same l tablet 02:00: as:Keppra) Allyn nn apixaban No Notes: [facility] 9-12 Same as: l 02:00: Eliquis Syed atorvastati No Notes: Ervin marybel n 9-12 (Same As: l 02:00: Lipitor) Syed Keppra 250 No Notes: [facility] mg oral 9-12 (Same l tablet 02:00: as:Keppra) Allyn nn apixaban No Notes: [facility] 9-12 Same as: l 02:00: Eliquis Constantia atorvastati No Notes: Ervin marybel n 9-12 (Same As: l 02:00: Lipitor) Constantia Keppra 250 No Notes: [facility] mg oral 9-12 (Same l tablet 02:00: as:Keppra) Allyn nn apixaban No Notes: [facility] 9-12 Same as: l 02:00: Eliquis Syed atorvastati No Notes: Ervin marybel n 9-12 (Same As: l 02:00: Lipitor) Syed Keppra 250 No Notes: Mem[facility] ia mg oral 9-12 (Same l tablet 02:00: as:Keppra) Allyn nn apixaban No Notes: [facility] 9-12 Same as: l 02:00: Eliquis Syed atorvastati No Notes: Ervin marybel n 9-12 (Same As: l 02:00: Lipitor) Syed Keppra 250 No Notes: Memor ia mg oral 9-12 (Same l tablet 02:00: as:Keppra) Allyn nn apixaban No Notes: [facility] 9-12 Same as: l 02:00: Eliquis Constantia atorvastati No Notes: Ervin marybel n 9-12 (Same As: l 02:00: Lipitor) Constantia Keppra 250 No Notes: Mem[facility] ia mg oral 9-12 (Same l tablet 02:00: as:Keppra) Allyn nn apixaban No Notes: [facility] 9-12 Same as: l 02:00: Eliquis Constantia atorvastati No Notes: Ervin marybel n 9-12 (Same As: l 02:00: Lipitor) Constantia Keppra 250 No Notes: Mem[facility] ia mg oral 9-12 (Same l tablet 02:00: as:Keppra) Allyn nn apixaban No Notes: [facility] 9-12 Same as: l 02:00: Eliquis Syed atorvastati No Notes: Ervin marybel n 9-12 (Same As: l 02:00: Lipitor) Syed Keppra 250 No Notes: Memor ia mg oral 9-12 (Same l tablet 02:00: as:Keppra) Allyn nn apixaban No Notes: [facility] 9-12 Same as: l 02:00: Eliquis Syed atorvastati No Notes: Ervin marybel n 9-12 (Same As: l 02:00: Lipitor) Constantia Keppra 250 No Notes: [facility] mg oral 9-12 (Same l tablet 02:00: as:Keppra) Allyn nn clonazePAM No Notes: Mem[facility] 9-11 (Same As: l 22:00: KlonoPIN) [facility] Group 3:Reproduc tive risk Hazardous Drug -- Refer to safe handling procedure PPE Matrix clonazePAM 2022-0 No Notes: Memor ia 9-11 (Same As: l 22:00: KlonoPIN) [facility]ous [facility] Group 3:Reproduc tive risk Hazardous Drug -- Refer to safe handling procedure PPE Matrix clonazePAM 2022-0 No Notes: Memor ia 9-11 (Same As: l 22:00: KlonoPIN) [facility]ous [facility] Group 3:Reproduc tive risk Hazardous Drug -- Refer to safe handling procedure PPE Matrix clonazePAM 2022-0 No Notes: Memor ia 9-11 (Same As: l 22:00: KlonoPIN) [facility] Group 3:Reproduc tive risk Hazardous Drug -- Refer to safe handling procedure PPE Matrix clonazePAM 2022-0 No Notes: Memor ia 9-11 (Same As: l 22:00: KlonoPIN) [facility]ous Drug Group 3:Reproduc tive risk Hazardous Drug -- Refer to safe handling procedure PPE Matrix clonazePAM 2-0 No Notes: Memor ia 9-11 (Same As: l 22:00: KlonoPIN) Haz[facility]ous Drug Group 3:Reproduc tive risk Hazardous Drug -- Refer to safe handling procedure PPE Matrix clonazePAM 2-0 No Notes: Memor ia 9-11 (Same As: l 22:00: KlonoPIN) Haz[facility]ous Drug Group 3:Reproduc tive risk Hazardous Drug -- Refer to safe handling procedure PPE Matrix clonazePAM 2022-0 No Notes: Memor ia 9-11 (Same As: l 22:00: KlonoPIN) Hazardous Drug Group 3:Reproduc tive risk Hazardous Drug -- Refer to safe handling procedure PPE Matrix clonazePAM 2022-0 No Notes: Memor ia 9-11 (Same As: l 22:00: KlonoPIN) Hazardous Drug Group 3:Reproduc tive risk Hazardous Drug -- Refer to safe handling procedure PPE Matrix clonazePAM 2022-0 No Notes: Mem[facility] ia 9-11 (Same As: l 22:00: KlonoPIN) Haz[facility]ous Drug Group 3:Reproduc tive risk Hazardous Drug -- Refer to safe handling procedure PPE Matrix clonazePAM 2022-0 No Notes: Mem[facility] ia 9-11 (Same As: l 22:00: KlonoPIN) Syed 00 Hazardous Drug Group 3:Reproduc tive risk Hazardous Drug -- Refer to safe handling procedure PPE Matrix Saline No Notes: [facility] Flush 0.9% 9-11 Same as: l 21:09: BD Syed 00 Posiflush Sterile Saline No Notes: [facility] Flush 0.9% 9-11 Same as: l 21:09: BD Constantia 00 Posiflush Sterile Saline No Notes: [facility] Flush 0.9% 9-11 Same as: l 21:09: BD Syed 00 Posiflush Sterile Saline No Notes: [facility] Flush 0.9% 9-11 Same as: l 21:09: BD Syed 00 Posiflush Sterile Saline No Notes: [facility] Flush 0.9% 9-11 Same as: l 21:09: BD Constantia 00 Posiflush Sterile Saline No Notes: [facility] Flush 0.9% 9-11 Same as: l 21:09: BD Syed 00 Posiflush Sterile Saline No Notes: [facility] Flush 0.9% 9-11 Same as: l 21:09: BD Syed 00 Posiflush Sterile Saline No Notes: [facility] Flush 0.9% 9-11 Same as: l 21:09: BD Constantia 00 Posiflush Sterile Saline No Notes: [facility] Flush 0.9% 9-11 Same as: l 21:09: BD Syed 00 Posiflush Sterile Saline No Notes: [facility] Flush 0.9% 9-11 Same as: l 21:09: BD Constantia 00 Posiflush Sterile Saline No Notes: [facility] Flush 0.9% 9-11 Same as: l 21:09: BD Constantia 00 Posiflush Sterile normal No 250 mL, [facility] saline 0.9% 9-11 250 ml/hr, l (Bolus) IV 11:47: Infuse Allyn nn 00 Over: 1 hr, Route: IV, 250, Drug form: INJ, ONCE, Priority: STAT, Dosing Weight 58.636 kg, Start date: 07/22/22 6:47:00 CDT, Stop date: 07/22/22 6:47:00 CDT, 0 normal 2022-0 No 250 mL, [facility] saline 0.9% 9-11 250 ml/hr, l (Bolus) IV 11:47: Infuse Allyn nn 00 Over: 1 hr, Route: IV, 250, Drug form: INJ, ONCE, Priority: STAT, Dosing Weight 58.636 kg, Start date: 07/22/22 6:47:00 CDT, Stop date: 07/22/22 6:47:00 CDT, 0 normal 2022-0 No 250 mL, [facility] saline 0.9% 9-11 250 ml/hr, l (Bolus) IV 11:47: Infuse Allyn nn 00 Over: 1 hr, Route: IV, 250, Drug form: INJ, ONCE, Priority: STAT, Dosing Weight 58.636 kg, Start date: 07/22/22 6:47:00 CDT, Stop date: 07/22/22 6:47:00 CDT, 0 normal 2022-0 No 250 mL, [facility] saline 0.9% 9-11 250 ml/hr, l (Bolus) IV 11:47: Infuse Allyn nn 00 Over: 1 hr, Route: IV, 250, Drug form: INJ, ONCE, Priority: STAT, Dosing Weight 58.636 kg, Start date: 07/22/22 6:47:00 CDT, Stop date: 07/22/22 6:47:00 CDT, 0 normal 2022-0 No 250 mL, [facility] saline 0.9% 9-11 250 ml/hr, l (Bolus) IV 11:47: Infuse Allyn nn 00 Over: 1 hr, Route: IV, 250, Drug form: INJ, ONCE, Priority: STAT, Dosing Weight 58.636 kg, Start date: 07/22/22 6:47:00 CDT, Stop date: 07/22/22 6:47:00 CDT, 0 normal 2022-0 No 250 mL, [facility] saline 0.9% 9-11 250 ml/hr, l (Bolus) IV 11:47: Infuse Allyn nn 00 Over: 1 hr, Route: IV, 250, Drug form: INJ, ONCE, Priority: STAT, Dosing Weight 58.636 kg, Start date: 07/22/22 6:47:00 CDT, Stop date: 07/22/22 6:47:00 CDT, 0 normal 2022-0 No 250 mL, [facility] saline 0.9% 9-11 250 ml/hr, l (Bolus) IV 11:47: Infuse Allyn nn 00 Over: 1 hr, Route: IV, 250, Drug form: INJ, ONCE, Priority: STAT, Dosing Weight 58.636 kg, Start date: 07/22/22 6:47:00 CDT, Stop date: 07/22/22 6:47:00 CDT, 0 normal 2022-0 No 250 mL, [facility] saline 0.9% 9-11 250 ml/hr, l (Bolus) IV 11:47: Infuse Allyn nn 00 Over: 1 hr, Route: IV, 250, Drug form: INJ, ONCE, Priority: STAT, Dosing Weight 58.636 kg, Start date: 07/22/22 6:47:00 CDT, Stop date: 07/22/22 6:47:00 CDT, 0 normal 2022-0 No 250 mL, [facility] saline 0.9% 9-11 250 ml/hr, l (Bolus) IV 11:47: Infuse Allyn nn 00 Over: 1 hr, Route: IV, 250, Drug form: INJ, ONCE, Priority: STAT, Dosing Weight 58.636 kg, Start date: 07/22/22 6:47:00 CDT, Stop date: 07/22/22 6:47:00 CDT, 0 normal 2022-0 No 250 mL, [facility] saline 0.9% 9-11 250 ml/hr, l (Bolus) IV 11:47: Infuse Allyn nn 00 Over: 1 hr, Route: IV, 250, Drug form: INJ, ONCE, Priority: STAT, Dosing Weight 58.636 kg, Start date: 07/22/22 6:47:00 CDT, Stop date: 07/22/22 6:47:00 CDT, 0 normal 2022-0 No 250 mL, [facility] saline 0.9% 9-11 250 ml/hr, l (Bolus) IV 11:47: Infuse Allyn nn 00 Over: 1 hr, Route: IV, 250, Drug form: INJ, ONCE, Priority: STAT, Dosing Weight 58.636 kg, Start date: 07/22/22 6:47:00 CDT, Stop date: 07/22/22 6:47:00 CDT, 0 calcium No Notes: [facility]oria gluconate + 9-10 WASTE: F/P l Sodium 20:08: - Sink; E Johnny n Chloride 00 - 0.9% IV 80 Municipal mL Trash Bin calcium No Notes: [facility] gluconate + 9-10 WASTE: F/P l Sodium 20:08: - Sink; E Johnny n Chloride 00 - 0.9% IV 80 Municipal mL Trash Bin calcium No Notes: [facility] gluconate + 9-10 WASTE: F/P l Sodium 20:08: - Sink; E Johnny n Chloride 00 - 0.9% IV 80 Municipal mL Trash Bin calcium No Notes: [facility] gluconate + 9-10 WASTE: F/P l Sodium 20:08: - Sink; E Johnny n Chloride 00 - 0.9% IV 80 Municipal mL Trash Bin calcium No Notes: [facility] gluconate + 9-10 WASTE: F/P l Sodium 20:08: - Sink; E Johnny n Chloride 00 - 0.9% IV 80 Municipal mL Trash Bin calcium No Notes: [facility] gluconate + 9-10 WASTE: F/P l Sodium 20:08: - Sink; E Johnny n Chloride 00 - 0.9% IV 80 Municipal mL Trash Bin calcium No Notes: [facility] gluconate + 9-10 WASTE: F/P l Sodium 20:08: - Sink; E Johnny n Chloride 00 - 0.9% IV 80 Municipal mL Trash Bin calcium No Notes: [facility] gluconate + 9-10 WASTE: F/P l Sodium 20:08: - Sink; E Johnny n Chloride 00 - 0.9% IV 80 Municipal mL Trash Bin calcium No Notes: [facility] gluconate + 9-10 WASTE: F/P l Sodium 20:08: - Sink; E Johnny n Chloride 00 - 0.9% IV 80 Municipal mL Trash Bin calcium No Notes: [facility] gluconate + 9-10 WASTE: F/P l Sodium 20:08: - Sink; E Johnny n Chloride 00 - 0.9% IV 80 Municipal mL Trash Bin calcium 2021-0 No Notes: [facility]oria gluconate + 9-10 WASTE: F/P l Sodium 20:08: - Sink; E Johnny n Chloride 00 - 0.9% IV 80 Municipal mL Trash Bin normal 2-0 No 250 mL, [facility] saline 0.9% 9-10 250 ml/hr, l (Bolus) IV 14:39: Infuse Allyn nn 00 Over: 1 hr, Route: IV, 250, Drug form: INJ, ONCE, Priority: STAT, Dosing Weight 58.636 kg, Start date: 07/21/22 9:39:00 CDT, Stop date: 07/21/22 9:39:00 CDT, 0 normal 2-0 No 250 mL, [facility] saline 0.9% 9-10 250 ml/hr, l (Bolus) IV 14:39: Infuse Allyn nn 00 Over: 1 hr, Route: IV, 250, Drug form: INJ, ONCE, Priority: STAT, Dosing Weight 58.636 kg, Start date: 07/21/22 9:39:00 CDT, Stop date: 07/21/22 9:39:00 CDT, 0 normal 2021-0 No 250 mL, [facility] saline 0.9% 9-10 250 ml/hr, l (Bolus) IV 14:39: Infuse Allyn nn 00 Over: 1 hr, Route: IV, 250, Drug form: INJ, ONCE, Priority: STAT, Dosing Weight 58.636 kg, Start date: 07/21/22 9:39:00 CDT, Stop date: 07/21/22 9:39:00 CDT, 0 normal 2-0 No 250 mL, [facility] saline 0.9% 9-10 250 ml/hr, l (Bolus) IV 14:39: Infuse Allyn nn 00 Over: 1 hr, Route: IV, 250, Drug form: INJ, ONCE, Priority: STAT, Dosing Weight 58.636 kg, Start date: 07/21/22 9:39:00 CDT, Stop date: 07/21/22 9:39:00 CDT, 0 normal 2-0 No 250 mL, [facility] saline 0.9% 9-10 250 ml/hr, l (Bolus) IV 14:39: Infuse Allyn nn 00 Over: 1 hr, Route: IV, 250, Drug form: INJ, ONCE, Priority: STAT, Dosing Weight 58.636 kg, Start date: 07/21/22 9:39:00 CDT, Stop date: 07/21/22 9:39:00 CDT, 0 normal 2022-0 No 250 mL, [facility] saline 0.9% 9-10 250 ml/hr, l (Bolus) IV 14:39: Infuse Allyn nn 00 Over: 1 hr, Route: IV, 250, Drug form: INJ, ONCE, Priority: STAT, Dosing Weight 58.636 kg, Start date: 07/21/22 9:39:00 CDT, Stop date: 07/21/22 9:39:00 CDT, 0 normal 2022-0 No 250 mL, [facility] saline 0.9% 9-10 250 ml/hr, l (Bolus) IV 14:39: Infuse Allyn nn 00 Over: 1 hr, Route: IV, 250, Drug form: INJ, ONCE, Priority: STAT, Dosing Weight 58.636 kg, Start date: 07/21/22 9:39:00 CDT, Stop date: 07/21/22 9:39:00 CDT, 0 normal 2022-0 No 250 mL, Memoria saline 0.9% 9-10 250 ml/hr, l (Bolus) IV 14:39: Infuse Allyn nn 00 Over: 1 hr, Route: IV, 250, Drug form: INJ, ONCE, Priority: STAT, Dosing Weight 58.636 kg, Start date: 07/21/22 9:39:00 CDT, Stop date: 07/21/22 9:39:00 CDT, 0 normal 2022-0 No 250 mL, Memoria saline 0.9% 9-10 250 ml/hr, l (Bolus) IV 14:39: Infuse Allyn nn 00 Over: 1 hr, Route: IV, 250, Drug form: INJ, ONCE, Priority: STAT, Dosing Weight 58.636 kg, Start date: 07/21/22 9:39:00 CDT, Stop date: 07/21/22 9:39:00 CDT, 0 normal 2022-0 No 250 mL, Memoria saline 0.9% 9-10 250 ml/hr, l (Bolus) IV 14:39: Infuse Allyn nn 00 Over: 1 hr, Route: IV, 250, Drug form: INJ, ONCE, Priority: STAT, Dosing Weight 58.636 kg, Start date: 07/21/22 9:39:00 CDT, Stop date: 07/21/22 9:39:00 CDT, 0 normal 2-0 No 250 mL, Memoria saline 0.9% 9-10 250 ml/hr, l (Bolus) IV 14:39: Infuse Allyn nn 00 Over: 1 hr, Route: IV, 250, Drug form: INJ, ONCE, Priority: STAT, Dosing Weight 58.636 kg, Start date: 07/21/22 9:39:00 CDT, Stop date: 07/21/22 9:39:00 CDT, 0 Lubricant 2021-0 No 1 drp, [facility] 07-21 Route: l ophthalmic 14:00: Each Syed solution 00 Affected Eye, TID, Drug form: SOLN, Start date: 07/21/22 9:00:00 CDT, Duration: 30 day, Stop date: 08/19/22 17:00:00 CDT Lubricant 2021-0 No 1 drp, [facility] 07-21 Route: l ophthalmic 14:00: Each Constantia solution 00 Affected Eye, TID, Drug form: SOLN, Start date: 07/21/22 9:00:00 CDT, Duration: 30 day, Stop date: 08/19/22 17:00:00 CDT Lubricant 2021-0 No 1 drp, [facility] 07-21 Route: l ophthalmic 14:00: Each Syed solution 00 Affected Eye, TID, Drug form: SOLN, Start date: 07/21/22 9:00:00 CDT, Duration: 30 day, Stop date: 08/19/22 17:00:00 CDT Lubricant 2021-0 No 1 drp, [facility] 07-21 Route: l ophthalmic 14:00: Each Syed solution 00 Affected Eye, TID, Drug form: SOLN, Start date: 07/21/22 9:00:00 CDT, Duration: 30 day, Stop date: 08/19/22 17:00:00 CDT Lubricant 2021-0 No 1 drp, [facility] 07-21 Route: l ophthalmic 14:00: Each Constantia solution 00 Affected Eye, TID, Drug form: SOLN, Start date: 07/21/22 9:00:00 CDT, Duration: 30 day, Stop date: 08/19/22 17:00:00 CDT Lubricant 2021-0 No 1 drp, [facility] 07-21 Route: l ophthalmic 14:00: Each Syed solution 00 Affected Eye, TID, Drug form: SOLN, Start date: 07/21/22 9:00:00 CDT, Duration: 30 day, Stop date: 08/19/22 17:00:00 CDT Lubricant 2021-0 No 1 drp, [facility] 07-21 Route: l ophthalmic 14:00: Each Syed solution 00 Affected Eye, TID, Drug form: SOLN, Start date: 07/21/22 9:00:00 CDT, Duration: 30 day, Stop date: 08/19/22 17:00:00 CDT Lubricant 2021-0 No 1 drp, [facility] 07-21 Route: l ophthalmic 14:00: Each Syed solution 00 Affected Eye, TID, Drug form: SOLN, Start date: 07/21/22 9:00:00 CDT, Duration: 30 day, Stop date: 08/19/22 17:00:00 CDT Lubricant 2021-0 No 1 drp, [facility] 07-21 Route: l ophthalmic 14:00: Each Syed solution 00 Affected Eye, TID, Drug form: SOLN, Start date: 07/21/22 9:00:00 CDT, Duration: 30 day, Stop date: 08/19/22 17:00:00 CDT Lubricant 2021-0 No 1 drp, [facility] 07-21 Route: l ophthalmic 14:00: Each Constantia solution 00 Affected Eye, TID, Drug form: SOLN, Start date: 07/21/22 9:00:00 CDT, Duration: 30 day, Stop date: 08/19/22 17:00:00 CDT Lubricant 2022-0 No 1 drp, [facility] 9-10 Route: l ophthalmic 14:00: Each Syed solution 00 Affected Eye, TID, Drug form: SOLN, Start date: 07/21/22 9:00:00 CDT, Duration: 30 day, Stop date: 08/19/22 17:00:00 CDT tramadol No Notes: 25 Ervin marybel 9-10 mg = 1/2 x l 13:05: 50 mg TAB Syed 00 Not to exceed 400mg/day. (Same As: Ultram) tramadol No Notes: 25 Ervin marybel 9-10 mg = 1/2 x l 13:05: 50 mg TAB Syed 00 Not to exceed 400mg/day. (Same As: Ultram) tramadol No Notes: 25 Ervin marybel 9-10 mg = 1/2 x l 13:05: 50 mg TAB Syed 00 Not to exceed 400mg/day. (Same As: Ultram) tramadol No Notes: 25 Ervin marybel 9-10 mg = 1/2 x l 13:05: 50 mg TAB Syed 00 Not to exceed 400mg/day. (Same As: Ultram) tramadol No Notes: 25 Ervin marybel 9-10 mg = 1/2 x l 13:05: 50 mg TAB Syed 00 Not to exceed 400mg/day. (Same As: Ultram) tramadol No Notes: 25 Ervin marybel 9-10 mg = 1/2 x l 13:05: 50 mg TAB Syed 00 Not to exceed 400mg/day. (Same As: Ultram) tramadol No Notes: 25 Ervin marybel 9-10 mg = 1/2 x l 13:05: 50 mg TAB Constantia 00 Not to exceed 400mg/day. (Same As: Ultram) tramadol No Notes: 25 Ervin marybel 9-10 mg = 1/2 x l 13:05: 50 mg TAB Constantia 00 Not to exceed 400mg/day. (Same As: Ultram) tramadol No Notes: 25 Ervin marybel 9-10 mg = 1/2 x l 13:05: 50 mg TAB Constantia 00 Not to exceed 400mg/day. (Same As: Ultram) tramadol 2021-0 No Notes: 25 Ervin marybel 9-10 mg = 1/2 x l 13:05: 50 mg TAB Syed 00 Not to exceed 400mg/day. (Same As: Ultram) tramadol 2021-0 No Notes: 25 Ervin marybel 9-10 mg = 1/2 x l 13:05: 50 mg TAB Syed 00 Not to exceed 400mg/day. (Same As: Ultram) Lubricant 0 No Notes: [facility] 9-10 (Same as: l ophthalmic 03:42: Aquasite) He rmann solution 00 Lubricant 2021- No Notes: [facility] 9-10 (Same as: l ophthalmic 03:42: Aquasite) He rmann solution 00 Lubricant No Notes: [facility] 9-10 (Same as: l ophthalmic 03:42: Aquasite) He rmann solution 00 Lubricant No Notes: [facility] 9-10 (Same as: l ophthalmic 03:42: Aquasite) He rmann solution 00 Lubricant No Notes: [facility] 9-10 (Same as: l ophthalmic 03:42: Aquasite) He rmann solution 00 Lubricant 2021-0 No Notes: [facility] 9-10 (Same as: l ophthalmic 03:42: Aquasite) He rmann solution 00 Lubricant 2021- No Notes: [facility] 9-10 (Same as: l ophthalmic 03:42: Aquasite) He rmann solution 00 Lubricant 0 No Notes: [facility] 9-10 (Same as: l ophthalmic 03:42: Aquasite) He rmann solution 00 Lubricant 2021-0 No Notes: [facility] 9-10 (Same as: l ophthalmic 03:42: Aquasite) He rmann solution 00 Lubricant 0 No Notes: [facility] 9-10 (Same as: l ophthalmic 03:42: Aquasite) He rmann solution 00 Lubricant 2021-0 No Notes: [facility] 9-10 (Same as: l ophthalmic 03:42: Aquasite) He rmann solution 00 tramadol 50 0 No 50 mg, 1 Me moria mg oral 9- tab, l tablet 22:53: Route: PO, Allyn nn 00 Drug form: TAB, ONCE, Dosing Weight 58.636, kg, Start date: 07/20/22 17:53:00 CDT, Stop date: 07/20/22 17:53:00 CDT, 0 tramadol 50 2022-0 No 50 mg, 1 Me moria mg oral - tab, l tablet 22:53: Route: PO, Allyn nn 00 Drug form: TAB, ONCE, Dosing Weight 58.636, kg, Start date: 07/20/22 17:53:00 CDT, Stop date: 07/20/22 17:53:00 CDT, 0 tramadol 50 2022-0 No 50 mg, 1 Me moria mg oral - tab, l tablet 22:53: Route: PO, Allyn nn 00 Drug form: TAB, ONCE, Dosing Weight 58.636, kg, Start date: 07/20/22 17:53:00 CDT, Stop date: 07/20/22 17:53:00 CDT, 0 tramadol 50 2022-0 No 50 mg, 1 Me moria mg oral - tab, l tablet 22:53: Route: PO, Allyn nn 00 Drug form: TAB, ONCE, Dosing Weight 58.636, kg, Start date: 07/20/22 17:53:00 CDT, Stop date: 07/20/22 17:53:00 CDT, 0 tramadol 50 2022-0 No 50 mg, 1 Me moria mg oral - tab, l tablet 22:53: Route: PO, Allyn nn 00 Drug form: TAB, ONCE, Dosing Weight 58.636, kg, Start date: 07/20/22 17:53:00 CDT, Stop date: 07/20/22 17:53:00 CDT, 0 tramadol 50 2022-0 No 50 mg, 1 Me moria mg oral - tab, l tablet 22:53: Route: PO, Allyn nn 00 Drug form: TAB, ONCE, Dosing Weight 58.636, kg, Start date: 07/20/22 17:53:00 CDT, Stop date: 07/20/22 17:53:00 CDT, 0 tramadol 50 2021-0 No 50 mg, 1 Me moria mg oral 07-20 tab, l tablet 22:53: Route: PO, Allyn nn 00 Drug form: TAB, ONCE, Dosing Weight 58.636, kg, Start date: 07/20/22 17:53:00 CDT, Stop date: 07/20/22 17:53:00 CDT, 0 tramadol 50 2021-0 No 50 mg, 1 Me moria mg oral 07-20 tab, l tablet 22:53: Route: PO, Allyn nn 00 Drug form: TAB, ONCE, Dosing Weight 58.636, kg, Start date: 07/20/22 17:53:00 CDT, Stop date: 07/20/22 17:53:00 CDT, 0 tramadol 50 2021-0 No 50 mg, 1 Me moria mg oral 07-20 tab, l tablet 22:53: Route: PO, Allyn nn 00 Drug form: TAB, ONCE, Dosing Weight 58.636, kg, Start date: 07/20/22 17:53:00 CDT, Stop date: 07/20/22 17:53:00 CDT, 0 tramadol 50 2021-0 No 50 mg, 1 Me moria mg oral 07-20 tab, l tablet 22:53: Route: PO, Allyn nn 00 Drug form: TAB, ONCE, Dosing Weight 58.636, kg, Start date: 07/20/22 17:53:00 CDT, Stop date: 07/20/22 17:53:00 CDT, 0 tramadol 50 2021-0 No 50 mg, 1 Me moria mg oral 07-20 tab, l tablet 22:53: Route: PO, Allyn nn 00 Drug form: TAB, ONCE, Dosing Weight 58.636, kg, Start date: 07/20/22 17:53:00 CDT, Stop date: 07/20/22 17:53:00 CDT, 0 tramadol 0 No Notes: Not Mem [facility] 07-20 to exceed l 15:58: 400mg/day. (Same As: Ultram) tramadol 2021-0 No Notes: Not Mem [facility] 07-20 to exceed l 15:58: 400mg/day. Constantia 00 (Same As: Ultram) tramadol 0 No Notes: Not Mem oria 9-09 to exceed l 15:58: 400mg/day. (Same As: Ultram) tramadol 0 No Notes: Not Mem oria 9-09 to exceed l 15:58: 400mg/day. (Same As: Ultram) tramadol 0 No Notes: Not Mem oria 9-09 to exceed l 15:58: 400mg/day. (Same As: Ultram) tramadol 0 No Notes: Not Mem oria 9-09 to exceed l 15:58: 400mg/day. (Same As: Ultram) tramadol 0 No Notes: Not Mem oria 9-09 to exceed l 15:58: 400mg/day. (Same As: Ultram) tramadol 0 No Notes: Not [facility] 9-09 to exceed l 15:58: 400mg/day. (Same As: Ultram) tramadol 0 No Notes: Not [facility] 9-09 to exceed l 15:58: 400mg/day. (Same As: Ultram) tramadol 0 No Notes: Not [facility] 9-09 to exceed l 15:58: 400mg/day. (Same As: Ultram) tramadol 0 No Notes: Not [facility] 9-09 to exceed l 15:58: 400mg/day. (Same As: Ultram) clonazePAM 2021-0 Yes 1 mg = 2 [facility] 0.5 mg oral -09 tab, PO, l tablet 15:56: Daily, 0 Refill(s) clonazePAM 2-0 Yes 1 mg = 2 [facility] 0.5 mg oral 9-09 tab, PO, l tablet 15:56: Daily, 0 Refill(s) clonazePAM 2-0 Yes 1 mg = 2 [facility] 0.5 mg oral 9-09 tab, PO, l tablet 15:56: Daily, 0 Refill(s) clonazePAM 2-0 Yes 1 mg = 2 [facility] 0.5 mg oral 9-09 tab, PO, l tablet 15:56: Daily, 0 Syed 00 Refill(s) clonazePAM 2022-0 Yes 1 mg = 2 [facility] 0.5 mg oral 9-09 tab, PO, l tablet 15:56: Daily, 0 Syed 00 Refill(s) clonazePAM 2022-0 Yes 1 mg = 2 [facility] 0.5 mg oral 9-09 tab, PO, l tablet 15:56: Daily, 0 Constantia 00 Refill(s) clonazePAM 2022-0 Yes 1 mg = 2 [facility] 0.5 mg oral 9-09 tab, PO, l tablet 15:56: Daily, 0 Constantia 00 Refill(s) clonazePAM 2022-0 Yes 1 mg = 2 [facility] 0.5 mg oral 9- tab, PO, l tablet 15:56: Daily, 0 Constantia 00 Refill(s) clonazePAM 2022-0 Yes 1 mg = 2 [facility] 0.5 mg oral - tab, PO, l tablet 15:56: Daily, 0 Constantia 00 Refill(s) clonazePAM 2022-0 Yes 1 mg = 2 [facility] 0.5 mg oral -09 tab, PO, l tablet 15:56: Daily, 0 Syed 00 Refill(s) clonazePAM 2022-0 Yes 1 mg = 2 [facility] 0.5 mg oral - tab, PO, l tablet 15:56: Daily, 0 Constantia 00 Refill(s) remove No Notes: [facility] patch - Remove l 02:30: patch 12 Constantia 00 hours after applicatio n each day. remove No Notes: [facility] patch 9- Remove l 02:30: patch 12 Constantia 00 hours after applicatio n each day. remove No Notes: [facility] patch 9- Remove l 02:30: patch 12 Syed 00 hours after applicatio n each day. remove No Notes: [facility] patch 9- Remove l 02:30: patch 12 Syed 00 hours after applicatio n each day. remove No Notes: [facility] patch 9- Remove l 02:30: patch 12 Syed 00 hours after applicatio n each day. remove No Notes: [facility] patch 9- Remove l 02:30: patch 12 Constantia 00 hours after applicatio n each day. remove No Notes: [facility] patch 9-09 Remove l 02:30: patch 12 Constantia 00 hours after applicatio n each day. remove No Notes: [facility] patch 9-09 Remove l 02:30: patch 12 Syed 00 hours after applicatio n each day. remove No Notes: [facility] patch 9-09 Remove l 02:30: patch 12 Constantia 00 hours after applicatio n each day. remove No Notes: [facility] patch 9-09 Remove l 02:30: patch 12 Syed 00 hours after applicatio n each day. remove No Notes: [facility] patch 9-09 Remove l 02:30: patch 12 Constantia 00 hours after applicatio n each day. atorvastati No Notes: Ervin marybel n 07-20 (Same As: l 02:00: Lipitor) Syed clonazePAM No Notes: Memor ia 07-20 (Same As: l 02:00: KlonoPIN) Syed 00 [facility] 3:Reproduc tive risk Hazardous Drug -- Refer to safe handling procedure PPE [facility] atorvastati No Notes: Ervin marybel n 07-20 (Same As: l 02:00: Lipitor) Constantia 00 clonazePAM No Notes: Memor ia 07-20 (Same As: l 02:00: KlonoPIN) Constantia [facility] Group 3:Reproduc tive risk Hazardous Drug -- Refer to safe handling procedure PPE [facility] atorvastati No Notes: Ervin marybel n 07-20 (Same As: l 02:00: Lipitor) Constantia 00 clonazePAM No Notes: Memor ia 07-20 (Same As: l 02:00: KlonoPIN) Syed 00 [facility] Group 3:Reproduc tive risk Hazardous Drug -- Refer to safe handling procedure PPE [facility] atorvastati No Notes: Ervin marybel n 07-20 (Same As: l 02:00: Lipitor) Syed 00 clonazePAM No Notes: Memor ia 07-20 (Same As: l 02:00: KlonoPIN) Syed 00 [facility] Group 3:Reproduc tive risk Hazardous Drug -- Refer to safe handling procedure PPE [facility] atorvastati No Notes: Erivn marybel n 07-20 (Same As: l 02:00: Lipitor) Constantia 00 clonazePAM No Notes: Memor ia 07-20 (Same As: l 02:00: KlonoPIN) Constantia 00 [facility] Group 3:Reproduc tive risk Hazardous Drug -- Refer to safe handling procedure PPE [facility] atorvastati No Notes: Ervin marybel n 07-20 (Same As: l 02:00: Lipitor) clonazePAM No Notes: Memor ia 07-20 (Same As: l 02:00: KlonoPIN) Constantia 00 [facility] Group 3:Reproduc tive risk Hazardous Drug -- Refer to safe handling procedure PPE [facility] atorvastati No Notes: Ervin marybel n 07-20 (Same As: l 02:00: Lipitor) Constantia 00 clonazePAM No Notes: Memor ia 07-20 (Same As: l 02:00: KlonoPIN) [facility] Group 3:Reproduc tive risk Hazardous Drug -- Refer to safe handling procedure PPE [facility] atorvastati No Notes: Ervin marybel n 07-20 (Same As: l 02:00: Lipitor) clonazePAM No Notes: Memor ia 07-20 (Same As: l 02:00: KlonoPIN) Syed 00 [facility] Group 3:Reproduc tive risk Hazardous Drug -- Refer to safe handling procedure PPE [facility] atorvastati No Notes: Ervin marybel n 07-20 (Same As: l 02:00: Lipitor) Constantia 00 clonazePAM No Notes: Memor ia 07-20 (Same As: l 02:00: KlonoPIN) Syed 00 [facility] Group 3:Reproduc tive risk Hazardous Drug -- Refer to safe handling procedure PPE [facility] atorvastati No Notes: Ervin marybel n 07-20 (Same As: l 02:00: Lipitor) Constantia 00 clonazePAM No Notes: Memor ia 9-09 (Same As: l 02:00: KlonoPIN) Constantia 00 [facility] Group 3:Reproduc tive risk Hazardous Drug -- Refer to safe handling procedure PPE [facility] atorvastati No Notes: Ervin marybel n 9-09 (Same As: l 02:00: Lipitor) Syed 00 clonazePAM 0 No Notes: Memor ia 9-09 (Same As: l 02:00: KlonoPIN) Constantia 00 [facility] Group 3:Reproduc tive risk Hazardous Drug -- Refer to safe handling procedure PPE [facility] cephalexin 0 No Notes: Memor ia 9-08 Take on l 19:33: empty Syed 00 stomach. (Same As: Keflex) cephalexin 2021-0 No Notes: Memor ia 9-08 Take on l 19:33: empty Constantia 00 stomach. (Same As: Keflex) cephalexin 2021-0 No Notes: Memor ia 9-08 Take on l 19:33: empty Syed 00 stomach. (Same As: Keflex) cephalexin 2021-0 No Notes: Memor ia 9-08 Take on l 19:33: empty Syed 00 stomach. (Same As: Keflex) cephalexin 2021-0 No Notes: Memor ia 9-08 Take on l 19:33: empty Constantia 00 stomach. (Same As: Keflex) cephalexin 2021-0 No Notes: Memor ia 9-08 Take on l 19:33: empty Syed 00 stomach. (Same As: Keflex) cephalexin 2021-0 No Notes: Memor ia 9-08 Take on l 19:33: empty Constantia 00 stomach. (Same As: Keflex) cephalexin 2021-0 No Notes: Memor ia 9-08 Take on l 19:33: empty Constantia 00 stomach. (Same As: Keflex) cephalexin 2021-0 No Notes: Memor ia 9-08 Take on l 19:33: empty Syed 00 stomach. (Same As: Keflex) cephalexin 2021-0 No Notes: Memor ia 9-08 Take on l 19:33: empty Syed 00 stomach. (Same As: Keflex) cephalexin 2021-0 No Notes: Memor ia 9-08 Take on l 19:33: empty Constantia 00 stomach. (Same As: Keflex) cephalexin 2022-0 Yes 250 mg = 1 M emoria 250 mg oral 9-08 cap, PO, l capsule 17:45: Daily, 0 Johnny n 00 Refill(s) cephalexin 2022-0 Yes 250 mg = 1 M emoria 250 mg oral 9-08 cap, PO, l capsule 17:45: Daily, 0 Johnny n 00 Refill(s) cephalexin 2022-0 Yes 250 mg = 1 M emoria 250 mg oral 9-08 cap, PO, l capsule 17:45: Daily, 0 Johnny n 00 Refill(s) cephalexin 2022-0 Yes 250 mg = 1 M emoria 250 mg oral 9-08 cap, PO, l capsule 17:45: Daily, 0 Johnny n 00 Refill(s) cephalexin 2022-0 Yes 250 mg = 1 M emoria 250 mg oral 9-08 cap, PO, l capsule 17:45: Daily, 0 Johnny n 00 Refill(s) cephalexin 2022-0 Yes 250 mg = 1 M emoria 250 mg oral 9-08 cap, PO, l capsule 17:45: Daily, 0 Johnny n 00 Refill(s) cephalexin 2022-0 Yes 250 mg = 1 M emoria 250 mg oral 9-08 cap, PO, l capsule 17:45: Daily, 0 Johnny n 00 Refill(s) cephalexin 2022-0 Yes 250 mg = 1 M emoria 250 mg oral 9-08 cap, PO, l capsule 17:45: Daily, 0 Johnny n 00 Refill(s) cephalexin 2022-0 Yes 250 mg = 1 M emoria 250 mg oral 9-08 cap, PO, l capsule 17:45: Daily, 0 Johnny n 00 Refill(s) cephalexin 2022-0 Yes 250 mg = 1 M emoria 250 mg oral 9-08 cap, PO, l capsule 17:45: Daily, 0 Johnny n 00 Refill(s) cephalexin 2022-0 Yes 250 mg = 1 M emoria 250 mg oral 9-08 cap, PO, l capsule 17:45: Daily, 0 Johnny n 00 Refill(s) gabapentin 2022-0 Yes 300 mg = 1 M emoria 300 mg oral 9-08 cap, PO, l capsule 17:41: BID, # 90 Allyn nn 00 cap, 1 Refill(s) gabapentin 2022-0 Yes 300 mg = 1 M emoria 300 mg oral 9-08 cap, PO, l capsule 17:41: BID, # 90 Allyn nn 00 cap, 1 Refill(s) gabapentin 2022-0 Yes 300 mg = 1 M emoria 300 mg oral 9-08 cap, PO, l capsule 17:41: BID, # 90 Allyn nn 00 cap, 1 Refill(s) gabapentin 2022-0 Yes 300 mg = 1 M emoria 300 mg oral 9-08 cap, PO, l capsule 17:41: BID, # 90 Allyn nn 00 cap, 1 Refill(s) gabapentin 2022-0 Yes 300 mg = 1 M emoria 300 mg oral 9-08 cap, PO, l capsule 17:41: BID, # 90 Allyn nn 00 cap, 1 Refill(s) gabapentin 2022-0 Yes 300 mg = 1 M emoria 300 mg oral 9-08 cap, PO, l capsule 17:41: BID, # 90 Allyn nn 00 cap, 1 Refill(s) gabapentin 2022-0 Yes 300 mg = 1 M emoria 300 mg oral 9-08 cap, PO, l capsule 17:41: BID, # 90 Allyn nn 00 cap, 1 Refill(s) gabapentin 2022-0 Yes 300 mg = 1 M emoria 300 mg oral 9-08 cap, PO, l capsule 17:41: BID, # 90 Allyn nn 00 cap, 1 Refill(s) gabapentin 2022-0 Yes 300 mg = 1 M emoria 300 mg oral 9-08 cap, PO, l capsule 17:41: BID, # 90 Allyn nn 00 cap, 1 Refill(s) gabapentin 2022-0 Yes 300 mg = 1 M emoria 300 mg oral 9-08 cap, PO, l capsule 17:41: BID, # 90 Allyn nn 00 cap, 1 Refill(s) gabapentin 2022-0 Yes 300 mg = 1 M emoria 300 mg oral 9-08 cap, PO, l capsule 17:41: BID, # 90 Allyn nn 00 cap, 1 Refill(s) clonazePAM 2022-0 Yes 1 mg = 1 Mem oria 1 mg oral 9-08 tab, PO, l tablet 17:39: QAM, 0 Syed 00 Refill(s) clonazePAM 2022-0 Yes 1 mg = 1 Mem oria 1 mg oral 9-08 tab, PO, l tablet 17:39: QAM, 0 Constantia 00 Refill(s) clonazePAM 2022-0 Yes 1 mg = 1 Mem oria 1 mg oral 9-08 tab, PO, l tablet 17:39: QAM, 0 Constantia 00 Refill(s) clonazePAM 2022-0 Yes 1 mg = 1 Mem oria 1 mg oral 9-08 tab, PO, l tablet 17:39: QAM, 0 Constantia 00 Refill(s) clonazePAM 2022-0 Yes 1 mg = 1 Mem oria 1 mg oral 9-08 tab, PO, l tablet 17:39: QAM, 0 Syed 00 Refill(s) clonazePAM 2022-0 Yes 1 mg = 1 Mem oria 1 mg oral 9-08 tab, PO, l tablet 17:39: QAM, 0 Constantia 00 Refill(s) clonazePAM 2022-0 Yes 1 mg = 1 Mem oria 1 mg oral 9-08 tab, PO, l tablet 17:39: QAM, 0 Syed 00 Refill(s) clonazePAM 2022-0 Yes 1 mg = 1 Mem oria 1 mg oral 9-08 tab, PO, l tablet 17:39: QAM, 0 Constantia 00 Refill(s) clonazePAM 2022-0 Yes 1 mg = 1 Mem oria 1 mg oral 9-08 tab, PO, l tablet 17:39: QAM, 0 Constantia 00 Refill(s) clonazePAM 2022-0 Yes 1 mg = 1 Mem oria 1 mg oral 9-08 tab, PO, l tablet 17:39: QAM, 0 Constantia 00 Refill(s) clonazePAM 2022-0 Yes 1 mg = 1 Mem oria 1 mg oral 9-08 tab, PO, l tablet 17:39: QAM, 0 Constantia 00 Refill(s) lidocaine 2022-0 No Notes: Memori a 4% topical - Patch is l film 14:30: applied to Syed 00 intact skin to cover painful area for up to 12 hours in a 24-hour period (12 hours on and 12 hours off). Please indicate the location of applicatio n site. Site 1: Remove old patch before applicatio n of new patch. (Same as Aspercreme Lidocaine Patch) lidocaine No Notes: Memori a 4% topical 9-08 Patch is l film 14:30: applied to Syed 00 intact skin to cover painful area for up to 12 hours in a 24-hour period (12 hours on and 12 hours off). Please indicate the location of applicatio n site. Site 1: Remove old patch before applicatio n of new patch. (Same as Aspercreme Lidocaine Patch) lidocaine No Notes: Memori a 4% topical 9-08 Patch is l film 14:30: applied to Constantia 00 intact skin to cover painful area for up to 12 hours in a 24-hour period (12 hours on and 12 hours off). Please indicate the location of applicatio n site. Site 1: Remove old patch before applicatio n of new patch. (Same as Aspercreme Lidocaine Patch) lidocaine No Notes: Memori a 4% topical 9-08 Patch is l film 14:30: applied to Constantia 00 intact skin to cover painful area for up to 12 hours in a 24-hour period (12 hours on and 12 hours off). Please indicate the location of applicatio n site. Site 1: Remove old patch before applicatio n of new patch. (Same as Aspercreme Lidocaine Patch) lidocaine No Notes: Memori a 4% topical 9-08 Patch is l film 14:30: applied to Constantia 00 intact skin to cover painful area for up to 12 hours in a 24-hour period (12 hours on and 12 hours off). Please indicate the location of applicatio n site. Site 1: Remove old patch before applicatio n of new patch. (Same as Aspercreme Lidocaine Patch) lidocaine No Notes: Memori a 4% topical 9-08 Patch is l film 14:30: applied to Syed 00 intact skin to cover painful area for up to 12 hours in a 24-hour period (12 hours on and 12 hours off). Please indicate the location of applicatio n site. Site 1: Remove old patch before applicatio n of new patch. (Same as Aspercreme Lidocaine Patch) lidocaine No Notes: Memori a 4% topical 9-08 Patch is l film 14:30: applied to Syed 00 intact skin to cover painful area for up to 12 hours in a 24-hour period (12 hours on and 12 hours off). Please indicate the location of applicatio n site. Site 1: Remove old patch before applicatio n of new patch. (Same as Aspercreme Lidocaine Patch) lidocaine No Notes: Memori a 4% topical 9-08 Patch is l film 14:30: applied to Constantia 00 intact skin to cover painful area for up to 12 hours in a 24-hour period (12 hours on and 12 hours off). Please indicate the location of applicatio n site. Site 1: Remove old patch before applicatio n of new patch. (Same as Aspercreme Lidocaine Patch) lidocaine No Notes: Memori a 4% topical 9-08 Patch is l film 14:30: applied to Syed 00 intact skin to cover painful area for up to 12 hours in a 24-hour period (12 hours on and 12 hours off). Please indicate the location of applicatio n site. Site 1: Remove old patch before applicatio n of new patch. (Same as Aspercreme Lidocaine Patch) lidocaine No Notes: Memori a 4% topical 9-08 Patch is l film 14:30: applied to Constantia 00 intact skin to cover painful area for up to 12 hours in a 24-hour period (12 hours on and 12 hours off). Please indicate the location of applicatio n site. Site 1: Remove old patch before applicatio n of new patch. (Same as Aspercreme Lidocaine Patch) lidocaine No Notes: Memori a 4% topical 9-08 Patch is l film 14:30: applied to Syed 00 intact skin to cover painful area for up to 12 hours in a 24-hour period (12 hours on and 12 hours off). Please indicate the location of applicatio n site. Site 1: Remove old patch before applicatio n of new patch. (Same as Aspercreme Lidocaine Patch) AMIODarone No Notes: Memor ia 9-08 (Same as: l 14:00: Cordarone) apixaban No Notes: Memoria 9-08 Same as: l 14:00: Eliquis Syed aspirin 81 No Notes: Do Me moria mg tablet, 9-08 not crush l enteric 14:00: or chew. Johnny n coated 00 (Same As: Ecotrin) Keppra 250 No Notes: Memor ia mg oral 9-08 (Same l tablet 14:00: as:Keppra) Allyn nn 00 clonazePAM No Notes: Memor ia 9-08 (Same As: l 14:00: KlonoPIN) [facility] Group 3:Reproduc tive risk Hazardous Drug -- Refer to safe handling procedure PPE [facility] AMIODarone No Notes: Memor ia 9-08 (Same as: l 14:00: Cordarone) apixaban No Notes: Memoria 9-08 Same as: l 14:00: Eliquis Syed 00 aspirin 81 No Notes: Do Me moria mg tablet, 9-08 not crush l enteric 14:00: or chew. Johnny n coated 00 (Same As: Ecotrin) Keppra 250 No Notes: Memor ia mg oral 9-08 (Same l tablet 14:00: as:Keppra) Allyn nn 00 clonazePAM No Notes: Memor ia 9-08 (Same As: l 14:00: KlonoPIN) [facility] Group 3:Reproduc tive risk Hazardous Drug -- Refer to safe handling procedure PPE [facility] AMIODarone No Notes: Memor ia 9-08 (Same as: l 14:00: Cordarone) apixaban No Notes: Memoria 9-08 Same as: l 14:00: Eliquis Syed aspirin 81 No Notes: Do Me moria mg tablet, 9-08 not crush l enteric 14:00: or chew. Johnny n coated 00 (Same As: Ecotrin) Keppra 250 No Notes: Memor ia mg oral 9-08 (Same l tablet 14:00: as:Keppra) Allyn nn 00 clonazePAM No Notes: Memor ia 9-08 (Same As: l 14:00: KlonoPIN) Constantia 00 [facility] Group 3:Reproduc tive risk Hazardous Drug -- Refer to safe handling procedure PPE [facility] AMIODarone No Notes: Memor ia 9-08 (Same as: l 14:00: Cordarone) apixaban No Notes: Memoria 9-08 Same as: l 14:00: Eliquis Syed 00 aspirin 81 No Notes: Do Me moria mg tablet, 9-08 not crush l enteric 14:00: or chew. Johnny n coated 00 (Same As: Ecotrin) Keppra 250 No Notes: Memor ia mg oral 9-08 (Same l tablet 14:00: as:Keppra) Allyn nn 00 clonazePAM No Notes: Memor ia 9-08 (Same As: l 14:00: KlonoPIN) [facility] Group 3:Reproduc tive risk Hazardous Drug -- Refer to safe handling procedure PPE Matrix AMIODarone No Notes: Memor ia 9-08 (Same as: l 14:00: Cordarone) apixaban No Notes: Memoria 9-08 Same as: l 14:00: Eliquis Syed 00 aspirin 81 No Notes: Do Me moria mg tablet, 9-08 not crush l enteric 14:00: or chew. Johnny n coated 00 (Same As: Ecotrin) Keppra 250 No Notes: Memor ia mg oral 9-08 (Same l tablet 14:00: as:Keppra) Allyn nn 00 clonazePAM No Notes: Memor ia 9-08 (Same As: l 14:00: KlonoPIN) Constantia 00 [facility] Group 3:Reproduc tive risk Hazardous Drug -- Refer to safe handling procedure PPE Matrix AMIODarone No Notes: Memor ia 9-08 (Same as: l 14:00: Cordarone) apixaban No Notes: Memoria 9-08 Same as: l 14:00: Eliquis Syed 00 aspirin 81 No Notes: Do Me moria mg tablet, 9-08 not crush l enteric 14:00: or chew. Johnny n coated 00 (Same As: Ecotrin) Keppra 250 No Notes: Memor ia mg oral 9-08 (Same l tablet 14:00: as:Keppra) Allyn nn 00 clonazePAM No Notes: Memor ia 9-08 (Same As: l 14:00: KlonoPIN) [facility]ous Drug Group 3:Reproduc tive risk Hazardous Drug -- Refer to safe handling procedure PPE Matrix AMIODarone No Notes: Memor ia 9-08 (Same as: l 14:00: Cordarone) apixaban No Notes: Memoria 9-08 Same as: l 14:00: Eliquis [place] 00 aspirin 81 No Notes: Do Me moria mg tablet, 9-08 not crush l enteric 14:00: or chew. Johnny n coated 00 (Same As: Ecotrin) Keppra 250 No Notes: Memor ia mg oral 9-08 (Same l tablet 14:00: as:Keppra) Allyn nn 00 clonazePAM No Notes: Memor ia 9-08 (Same As: l 14:00: KlonoPIN) [facility]ous Drug Group 3:Reproduc tive risk Hazardous Drug -- Refer to safe handling procedure PPE Matrix AMIODarone No Notes: Memor ia 9-08 (Same as: l 14:00: Cordarone) apixaban No Notes: Memoria 9-08 Same as: l 14:00: Eliquis [place]ia aspirin 81 No Notes: Do Me moria mg tablet, 9-08 not crush l enteric 14:00: or chew. Johnny n coated 00 (Same As: Ecotrin) Keppra 250 No Notes: Memor ia mg oral 9-08 (Same l tablet 14:00: as:Keppra) Allyn nn 00 clonazePAM No Notes: Memor ia 9-08 (Same As: l 14:00: KlonoPIN) [facility]ous Drug Group 3:Reproduc tive risk Hazardous Drug -- Refer to safe handling procedure PPE Matrix AMIODarone No Notes: Memor ia 9-08 (Same as: l 14:00: Cordarone) apixaban No Notes: Memoria 9-08 Same as: l 14:00: Eliquis [place] aspirin 81 No Notes: Do Me moria mg tablet, 9-08 not crush l enteric 14:00: or chew. Johnny n coated 00 (Same As: Ecotrin) Keppra 250 No Notes: Memor ia mg oral 9-08 (Same l tablet 14:00: as:Keppra) Allyn nn 00 clonazePAM No Notes: Memor ia 9-08 (Same As: l 14:00: KlonoPIN) [facility] Group 3:Reproduc tive risk Hazardous Drug -- Refer to safe handling procedure PPE Matrix AMIODarone No Notes: Memor ia 9-08 (Same as: l 14:00: Cordarone) apixaban No Notes: Memoria 9-08 Same as: l 14:00: Eliquis [place]ia 00 aspirin 81 No Notes: Do Me moria mg tablet, 9-08 not crush l enteric 14:00: or chew. Johnny n coated 00 (Same As: Ecotrin) Keppra 250 No Notes: Memor ia mg oral 9-08 (Same l tablet 14:00: as:Keppra) Allyn nn 00 clonazePAM No Notes: Memor ia 9-08 (Same As: l 14:00: KlonoPIN) [facility] Group 3:Reproduc tive risk Hazardous Drug -- Refer to safe handling procedure PPE Matrix AMIODarone No Notes: Memor ia 9-08 (Same as: l 14:00: Cordarone) Constantia 00 apixaban No Notes: Memoria 9-08 Same as: l 14:00: Eliquis [place]ia 00 aspirin 81 No Notes: Do Me moria mg tablet, 07-19 not crush l enteric 14:00: or chew. Johnny n coated 00 (Same As: Ecotrin) Keppra 250 No Notes: Memor ia mg oral 07-19 (Same l tablet 14:00: as:Keppra) Allyn nn 00 clonazePAM No Notes: Memor ia 07-19 (Same As: l 14:00: KlonoPIN) Constantia 00 [facility] Group 3:Reproduc tive risk Hazardous Drug -- Refer to safe handling procedure PPE Matrix levothyroxi No Notes: Ervin marybel ne 07-19 Take 1 l 11:30: hour Syed 00 before or 2 hours after meal; Enteral feeds may interefere with the absorption of this medication . (Same as:Levothr oid, Synthroid) levothyroxi No Notes: Ervin marybel ne 07-19 Take 1 l 11:30: hour Syed 00 before or 2 hours after meal; Enteral feeds may interefere with the absorption of this medication . (Same as:Levothr oid, Synthroid) levothyroxi No Notes: Ervin marybel ne 07-19 Take 1 l 11:30: hour Constantia 00 before or 2 hours after meal; Enteral feeds may interefere with the absorption of this medication . (Same as:Levothr oid, Synthroid) levothyroxi No Notes: Ervin marybel ne 07-19 Take 1 l 11:30: hour Syed 00 before or 2 hours after meal; Enteral feeds may interefere with the absorption of this medication . (Same as:Levothr oid, Synthroid) levothyroxi No Notes: Ervin marybel ne 07-19 Take 1 l 11:30: hour Syed 00 before or 2 hours after meal; Enteral feeds may interefere with the absorption of this medication . (Same as:Levothr oid, Synthroid) levothyroxi No Notes: Ervin marybel ne 07-19 Take 1 l 11:30: hour Syed 00 before or 2 hours after meal; Enteral feeds may interefere with the absorption of this medication . (Same as:Levothr oid, Synthroid) levothyroxi No Notes: Ervin marybel ne 9-08 Take 1 l 11:30: hour Constantia 00 before or 2 hours after meal; Enteral feeds may interefere with the absorption of this medication . (Same as:Levothr oid, Synthroid) levothyroxi No Notes: Ervin marybel ne 9-08 Take 1 l 11:30: hour Constantia 00 before or 2 hours after meal; Enteral feeds may interefere with the absorption of this medication . (Same as:Levothr oid, Synthroid) levothyroxi No Notes: Ervin marybel ne 9-08 Take 1 l 11:30: hour Constantia 00 before or 2 hours after meal; Enteral feeds may interefere with the absorption of this medication . (Same as:Levothr oid, Synthroid) levothyroxi No Notes: Ervin marybel ne 9-08 Take 1 l 11:30: hour Constantia 00 before or 2 hours after meal; Enteral feeds may interefere with the absorption of this medication . (Same as:Levothr oid, Synthroid) levothyroxi No Notes: Ervin marybel ne 9-08 Take 1 l 11:30: hour Syed 00 before or 2 hours after meal; Enteral feeds may interefere with the absorption of this medication . (Same as:Levothr oid, Synthroid) melatonin No Notes: Memori a 9-08 (Same as: l 06:35: Melatonin) Constantia melatonin No Notes: Memori a 9-08 (Same as: l 06:35: Melatonin) Syed melatonin No Notes: Memori a 9-08 (Same as: l 06:35: Melatonin) Constantia melatonin No Notes: Memori a 9-08 (Same as: l 06:35: Melatonin) Constantia melatonin No Notes: Memori a 9-08 (Same as: l 06:35: Melatonin) Constantia melatonin No Notes: Memori a 9-08 (Same as: l 06:35: Melatonin) Constantia melatonin No Notes: Memori a 9-08 (Same as: l 06:35: Melatonin) melatonin No Notes: Memori a 07-19 (Same as: l 06:35: Melatonin) melatonin No Notes: Memori a 07-19 (Same as: l 06:35: Melatonin) melatonin No Notes: Memori a 07-19 (Same as: l 06:35: Melatonin) melatonin No Notes: Memori a 07-19 (Same as: l 06:35: Melatonin) docusate 2021-0 No 100 mg, 1 Ervin marybel 9-08 cap, l 02:00: Route: PO, Constantia 00 Drug form: CAP, Q12H, Dosing Weight 73.8, kg, Start date: 07/18/22 21:00:00 CDT, Duration: 30 day, Stop date: 08/17/22 9:00:00 CDT, 0 Saline 2022-0 No 10 ml, Memoria Flush 0.9% 908 Route: l 02:00: IVP, Drug Form: INJ, Dosing Weight 73.8, kg, Q12H, Start date: 07/18/22 21:00:00 CDT, Duration: 30 day, Stop date: 08/17/22 9:00:00 CDT, 0 docusate 2-0 No 100 mg, 1 Ervin marybel -08 cap, l 02:00: Route: PO, Drug form: CAP, Q12H, Dosing Weight 73.8, kg, Start date: 07/18/22 21:00:00 CDT, Duration: 30 day, Stop date: 08/17/22 9:00:00 CDT, 0 Saline 2022-0 No 10 ml, Memoria Flush 0.9% 9-08 Route: l 02:00: IVP, Drug Form: INJ, Dosing Weight 73.8, kg, Q12H, Start date: 07/18/22 21:00:00 CDT, Duration: 30 day, Stop date: 08/17/22 9:00:00 CDT, 0 docusate 2022-0 No 100 mg, 1 Ervin marybel 9-08 cap, l 02:00: Route: PO, Syed 00 Drug form: CAP, Q12H, Dosing Weight 73.8, kg, Start date: 07/18/22 21:00:00 CDT, Duration: 30 day, Stop date: 08/17/22 9:00:00 CDT, 0 Saline 2022-0 No 10 ml, Memoria Flush 0.9% 9-08 Route: l 02:00: IVP, Drug Constantia 00 Form: INJ, Dosing Weight 73.8, kg, Q12H, Start date: 07/18/22 21:00:00 CDT, Duration: 30 day, Stop date: 08/17/22 9:00:00 CDT, 0 docusate 2022-0 No 100 mg, 1 Ervin marybel 9-08 cap, l 02:00: Route: PO, Constantia 00 Drug form: CAP, Q12H, Dosing Weight 73.8, kg, Start date: 07/18/22 21:00:00 CDT, Duration: 30 day, Stop date: 08/17/22 9:00:00 CDT, 0 Saline 2022-0 No 10 ml, Memoria Flush 0.9% 9-08 Route: l 02:00: IVP, Drug Constantia 00 Form: INJ, Dosing Weight 73.8, kg, Q12H, Start date: 07/18/22 21:00:00 CDT, Duration: 30 day, Stop date: 08/17/22 9:00:00 CDT, 0 docusate 2022-0 No 100 mg, 1 Ervin marybel 9-08 cap, l 02:00: Route: PO, Syed 00 Drug form: CAP, Q12H, Dosing Weight 73.8, kg, Start date: 07/18/22 21:00:00 CDT, Duration: 30 day, Stop date: 08/17/22 9:00:00 CDT, 0 Saline 2022-0 No 10 ml, Memoria Flush 0.9% 9-08 Route: l 02:00: IVP, Drug Syed 00 Form: INJ, Dosing Weight 73.8, kg, Q12H, Start date: 07/18/22 21:00:00 CDT, Duration: 30 day, Stop date: 08/17/22 9:00:00 CDT, 0 docusate 2022-0 No 100 mg, 1 Ervin marybel 9-08 cap, l 02:00: Route: PO, Syed 00 Drug form: CAP, Q12H, Dosing Weight 73.8, kg, Start date: 07/18/22 21:00:00 CDT, Duration: 30 day, Stop date: 08/17/22 9:00:00 CDT, 0 Saline 2022-0 No 10 ml, Memoria Flush 0.9% 9-08 Route: l 02:00: IVP, Drug Syed 00 Form: INJ, Dosing Weight 73.8, kg, Q12H, Start date: 07/18/22 21:00:00 CDT, Duration: 30 day, Stop date: 08/17/22 9:00:00 CDT, 0 docusate 2022-0 No 100 mg, 1 Ervin marybel 9-08 cap, l 02:00: Route: PO, Syed 00 Drug form: CAP, Q12H, Dosing Weight 73.8, kg, Start date: 07/18/22 21:00:00 CDT, Duration: 30 day, Stop date: 08/17/22 9:00:00 CDT, 0 Saline 2022-0 No 10 ml, Memoria Flush 0.9% 9-08 Route: l 02:00: IVP, Drug Constantia 00 Form: INJ, Dosing Weight 73.8, kg, Q12H, Start date: 07/18/22 21:00:00 CDT, Duration: 30 day, Stop date: 08/17/22 9:00:00 CDT, 0 docusate 2022-0 No 100 mg, 1 Ervin marybel 9-08 cap, l 02:00: Route: PO, Constantia 00 Drug form: CAP, Q12H, Dosing Weight 73.8, kg, Start date: 07/18/22 21:00:00 CDT, Duration: 30 day, Stop date: 08/17/22 9:00:00 CDT, 0 Saline 2022-0 No 10 ml, Memoria Flush 0.9% 9-08 Route: l 02:00: IVP, Drug Seyd 00 Form: INJ, Dosing Weight 73.8, kg, Q12H, Start date: 07/18/22 21:00:00 CDT, Duration: 30 day, Stop date: 08/17/22 9:00:00 CDT, 0 docusate 2022-0 No 100 mg, 1 Ervin marybel 9-08 cap, l 02:00: Route: PO, Syed 00 Drug form: CAP, Q12H, Dosing Weight 73.8, kg, Start date: 07/18/22 21:00:00 CDT, Duration: 30 day, Stop date: 08/17/22 9:00:00 CDT, 0 Saline 2022-0 No 10 ml, Memoria Flush 0.9% 9-08 Route: l 02:00: IVP, Drug Syed 00 Form: INJ, Dosing Weight 73.8, kg, Q12H, Start date: 07/18/22 21:00:00 CDT, Duration: 30 day, Stop date: 08/17/22 9:00:00 CDT, 0 docusate 2022-0 No 100 mg, 1 Ervin marybel 9-08 cap, l 02:00: Route: PO, Syed 00 Drug form: CAP, Q12H, Dosing Weight 73.8, kg, Start date: 07/18/22 21:00:00 CDT, Duration: 30 day, Stop date: 08/17/22 9:00:00 CDT, 0 Saline 2022-0 No 10 ml, Memoria Flush 0.9% 9-08 Route: l 02:00: IVP, Drug Syed 00 Form: INJ, Dosing Weight 73.8, kg, Q12H, Start date: 07/18/22 21:00:00 CDT, Duration: 30 day, Stop date: 08/17/22 9:00:00 CDT, 0 docusate 2022-0 No 100 mg, 1 Ervin marybel 9-08 cap, l 02:00: Route: PO, Syed 00 Drug form: CAP, Q12H, Dosing Weight 73.8, kg, Start date: 07/18/22 21:00:00 CDT, Duration: 30 day, Stop date: 08/17/22 9:00:00 CDT, 0 Saline 2022-0 No 10 ml, Memoria Flush 0.9% 9-08 Route: l 02:00: IVP, Drug Syed 00 Form: INJ, Dosing Weight 73.8, kg, Q12H, Start date: 07/18/22 21:00:00 CDT, Duration: 30 day, Stop date: 08/17/22 9:00:00 CDT, 0 acetaminoph 2021-0 No Notes: Do M emoria en 07-18 not exceed l 22:56: 4 gm/day. Syed 00 Saline No 10 ml, Memoria Flush 0.9% 07-18 Route: l 22:56: IVP, Drug Syed 00 Form: INJ, Dosing Weight 73.8, kg, PRN, PRN Line Flush, Start date: 07/18/22 17:56:00 CDT, Duration: 30 day, Stop date: 08/17/22 17:55:00 CDT, 0 acetaminoph No Notes: Do M emoria en 07-18 not exceed l 22:56: 4 gm/day. Syed 00 Saline No 10 ml, Memoria Flush 0.9% 07-18 Route: l 22:56: IVP, Drug Constantia Form: INJ, Dosing Weight 73.8, kg, PRN, PRN Line Flush, Start date: 07/18/22 17:56:00 CDT, Duration: 30 day, Stop date: 08/17/22 17:55:00 CDT, 0 acetaminoph 0 No Notes: Do M emoria en 07-18 not exceed l 22:56: 4 gm/day. Syed 00 Saline No 10 ml, Memoria Flush 0.9% 07-18 Route: l 22:56: IVP, Drug Constantia Form: INJ, Dosing Weight 73.8, kg, PRN, PRN Line Flush, Start date: 07/18/22 17:56:00 CDT, Duration: 30 day, Stop date: 08/17/22 17:55:00 CDT, 0 acetaminoph 0 No Notes: Do M emoria en 07-18 not exceed l 22:56: 4 gm/day. Syed 00 Saline No 10 ml, Memoria Flush 0.9% 07-18 Route: l 22:56: IVP, Drug Syed 00 Form: INJ, Dosing Weight 73.8, kg, PRN, PRN Line Flush, Start date: 07/18/22 17:56:00 CDT, Duration: 30 day, Stop date: 08/17/22 17:55:00 CDT, 0 acetaminoph 0 No Notes: Do M emoria en 07-18 not exceed l 22:56: 4 gm/day. Constantia 00 Saline No 10 ml, Memoria Flush 0.9% 07-18 Route: l 22:56: IVP, Drug Constantia 00 Form: INJ, Dosing Weight 73.8, kg, PRN, PRN Line Flush, Start date: 07/18/22 17:56:00 CDT, Duration: 30 day, Stop date: 08/17/22 17:55:00 CDT, 0 acetaminoph No Notes: Do M emoria en 07-18 not exceed l 22:56: 4 gm/day. Syed 00 Saline No 10 ml, Memoria Flush 0.9% 07-18 Route: l 22:56: IVP, Drug Constantia 00 Form: INJ, Dosing Weight 73.8, kg, PRN, PRN Line Flush, Start date: 07/18/22 17:56:00 CDT, Duration: 30 day, Stop date: 08/17/22 17:55:00 CDT, 0 acetaminoph No Notes: Do Loree emoria en 07-18 not exceed l 22:56: 4 gm/day. Syed 00 Saline No 10 ml, Memoria Flush 0.9% 07-18 Route: l 22:56: IVP, Drug Constantia 00 Form: INJ, Dosing Weight 73.8, kg, PRN, PRN Line Flush, Start date: 07/18/22 17:56:00 CDT, Duration: 30 day, Stop date: 08/17/22 17:55:00 CDT, 0 acetaminoph 0 No Notes: Do M emoria en 07-18 not exceed l 22:56: 4 gm/day. Constantia 00 Saline No 10 ml, Memoria Flush 0.9% 07-18 Route: l 22:56: IVP, Drug Syed 00 Form: INJ, Dosing Weight 73.8, kg, PRN, PRN Line Flush, Start date: 07/18/22 17:56:00 CDT, Duration: 30 day, Stop date: 08/17/22 17:55:00 CDT, 0 acetaminoph 202-0 No Notes: Do M emoria en 07-18 not exceed l 22:56: 4 gm/day. Syed 00 Saline 0 No 10 ml, Memoria Flush 0.9% 07-18 Route: l 22:56: IVP, Drug Constantia 00 Form: INJ, Dosing Weight 73.8, kg, PRN, PRN Line Flush, Start date: 07/18/22 17:56:00 CDT, Duration: 30 day, Stop date: 08/17/22 17:55:00 CDT, 0 acetaminoph 2021-0 No Notes: Do M emoria en 07-18 not exceed l 22:56: 4 gm/day. Syed 00 Saline 0 No 10 ml, Memoria Flush 0.9% 07-18 Route: l 22:56: IVP, Drug Form: INJ, Dosing Weight 73.8, kg, PRN, PRN Line Flush, Start date: 07/18/22 17:56:00 CDT, Duration: 30 day, Stop date: 08/17/22 17:55:00 CDT, 0 acetaminoph 2021-0 No Notes: Do M emoria en 07-18 not exceed l 22:56: 4 gm/day. Syed 00 Saline 0 No 10 ml, Memoria Flush 0.9% 07-18 Route: l 22:56: IVP, Drug Form: INJ, Dosing Weight 73.8, kg, PRN, PRN Line Flush, Start date: 07/18/22 17:56:00 CDT, Duration: 30 day, Stop date: 08/17/22 17:55:00 CDT, 0 acetaminoph 202-0 Yes 1,000 mg = Memoria en 500 mg 3-02 2 tab, PO, l oral 17:48: Q8H, 0 Syed tablet. 00 Refill(s) acetaminoph 2022-0 Yes 1,000 mg = Memoria en 500 mg 3-02 2 tab, PO, l oral 17:48: Q8H, 0 Constantia tablet. 00 Refill(s) acetaminoph 2-0 Yes 1,000 mg = Memoria en 500 mg 3-02 2 tab, PO, l oral 17:48: Q8H, 0 Constantia tablet. 00 Refill(s) acetaminoph 2-0 Yes 1,000 mg = Memoria en 500 mg 3-02 2 tab, PO, l oral 17:48: Q8H, 0 Syed tablet. 00 Refill(s) acetaminoph 2-0 Yes 1,000 mg = Memoria en 500 mg 3-02 2 tab, PO, l oral 17:48: Q8H, 0 Constantia tablet. 00 Refill(s) acetaminoph 2021-0 Yes 1,000 mg = Memoria en 500 mg 3-02 2 tab, PO, l oral 17:48: Q8H, 0 Constantia tablet. 00 Refill(s) acetaminoph 2021-0 Yes 1,000 mg = Memoria en 500 mg 3-02 2 tab, PO, l oral 17:48: Q8H, 0 Syed tablet. 00 Refill(s) acetaminoph 2021-0 Yes 1,000 mg = Memoria en 500 mg 3-02 2 tab, PO, l oral 17:48: Q8H, 0 Syed tablet. 00 Refill(s) acetaminoph 2-0 Yes 1,000 mg = Memoria en 500 mg 3-02 2 tab, PO, l oral 17:48: Q8H, 0 Syed tablet. 00 Refill(s) acetaminoph 2021-0 Yes 1,000 mg = Memoria en 500 mg 3-02 2 tab, PO, l oral 17:48: Q8H, 0 Syed tablet. 00 Refill(s) acetaminoph 2-0 Yes 1,000 mg = Memoria en 500 mg 3-02 2 tab, PO, l oral 17:48: Q8H, 0 Syed tablet. 00 Refill(s) acetaminoph 2-0 Yes 1,000 mg = Memoria en 500 mg 3-02 2 tab, PO, l oral 17:48: Q8H, 0 Syed tablet. 00 Refill(s) Aspirin 81 Yes 81 mg = 1 Me moria MG Enteric 3-02 tab, PO, l Coated 17:37: Daily, 0 Syed Tablet 00 Refill(s) Aspirin 81 Yes 81 mg = 1 Me moria MG Enteric 3-02 tab, PO, l Coated 17:37: Daily, 0 Syed Tablet 00 Refill(s) Aspirin 81 Yes 81 mg = 1 Me moria MG Enteric 3-02 tab, PO, l Coated 17:37: Daily, 0 Syed Tablet 00 Refill(s) Aspirin 81 Yes 81 mg = 1 Me moria MG Enteric 3-02 tab, PO, l Coated 17:37: Daily, 0 Constantia Tablet 00 Refill(s) Aspirin 81 Yes 81 mg = 1 Me moria MG Enteric 3-02 tab, PO, l Coated 17:37: Daily, 0 Constantia Tablet 00 Refill(s) Aspirin 81 Yes 81 mg = 1 Me moria MG Enteric 3-02 tab, PO, l Coated 17:37: Daily, 0 Constantia Tablet 00 Refill(s) Aspirin 81 Yes 81 mg = 1 Me moria MG Enteric 3-02 tab, PO, l Coated 17:37: Daily, 0 Constantia Tablet 00 Refill(s) Aspirin 81 Yes 81 mg = 1 Me moria MG Enteric 3-02 tab, PO, l Coated 17:37: Daily, 0 Syed Tablet 00 Refill(s) Aspirin 81 Yes 81 mg = 1 Me moria MG Enteric 3-02 tab, PO, l Coated 17:37: Daily, 0 Syed Tablet 00 Refill(s) Aspirin 81 Yes 81 mg = 1 Me moria MG Enteric 3-02 tab, PO, l Coated 17:37: Daily, 0 Constantia Tablet 00 Refill(s) Aspirin 81 2021-0 Yes 81 mg = 1 Me moria MG Enteric 3-02 tab, PO, l Coated 17:37: Daily, 0 Constantia Tablet 00 Refill(s) Aspirin 81 2021- Yes 81 mg = 1 Me moria MG Enteric 3-02 tab, PO, l Coated 17:37: Daily, 0 Constantia Tablet 00 Refill(s) atorvastati 2021-0 Yes 20 mg = 1 M emoria n 20 mg 3-02 tab, PO, l oral tablet 17:36: Bedtime, 0 Syed 00 Refill(s) atorvastati 2021-0 Yes 20 mg = 1 M emoria n 20 mg 3-02 tab, PO, l oral tablet 17:36: Bedtime, 0 Constantia 00 Refill(s) atorvastati 2021-0 Yes 20 mg = 1 M emoria n 20 mg 3-02 tab, PO, l oral tablet 17:36: Bedtime, 0 Syed 00 Refill(s) atorvastati 2021-0 Yes 20 mg = 1 M emoria n 20 mg 3-02 tab, PO, l oral tablet 17:36: Bedtime, 0 Constantia 00 Refill(s) atorvastati 2021-0 Yes 20 mg = 1 M emoria n 20 mg 3-02 tab, PO, l oral tablet 17:36: Bedtime, 0 Syed 00 Refill(s) atorvastati 2021-0 Yes 20 mg = 1 M emoria n 20 mg 3-02 tab, PO, l oral tablet 17:36: Bedtime, 0 Syed 00 Refill(s) atorvastati 2021-0 Yes 20 mg = 1 M emoria n 20 mg -02 tab, PO, l oral tablet 17:36: Bedtime, 0 Constantia 00 Refill(s) atorvastati 2021-0 Yes 20 mg = 1 M emoria n 20 mg -02 tab, PO, l oral tablet 17:36: Bedtime, 0 Syed 00 Refill(s) atorvastati 2021-0 Yes 20 mg = 1 M emoria n 20 mg 3-02 tab, PO, l oral tablet 17:36: Bedtime, 0 Constantia 00 Refill(s) atorvastati 2021-0 Yes 20 mg = 1 M emoria n 20 mg 3-02 tab, PO, l oral tablet 17:36: Bedtime, 0 Syed 00 Refill(s) atorvastati 2021-0 Yes 20 mg = 1 M emoria n 20 mg 3-02 tab, PO, l oral tablet 17:36: Bedtime, 0 Syed 00 Refill(s) atorvastati Yes 20 mg = 1 M emoria n 20 mg 3-02 tab, PO, l oral tablet 17:36: Bedtime, 0 Refill(s) Aspirin No Notes: Do Memor ia 3-02 not crush l 15:00: or chew. (Same As: Ecotrin) Aspirin No Notes: Do Memor ia 3-02 not crush l 15:00: or chew. (Same As: Ecotrin) Aspirin No Notes: Do Memor ia 3-02 not crush l 15:00: or chew. (Same As: Ecotrin) Aspirin No Notes: Do Memor ia 3-02 not crush l 15:00: or chew. (Same As: Ecotrin) Aspirin No Notes: Do Memor ia 3-02 not crush l 15:00: or chew. (Same As: Ecotrin) Aspirin No Notes: Do Memor ia 3-02 not crush l 15:00: or chew. (Same As: Ecotrin) Aspirin No Notes: Do Memor ia 3-02 not crush l 15:00: or chew. (Same As: Ecotrin) Aspirin No Notes: Do Memor ia 3-02 not crush l 15:00: or chew. (Same As: Ecotrin) Aspirin No Notes: Do Memor ia 3-02 not crush l 15:00: or chew. Syed 00 (Same As: Ecotrin) Aspirin No Notes: Do Memor ia 3-02 not crush l 15:00: or chew. (Same As: Ecotrin) Aspirin No Notes: Do Memor ia 3-02 not crush l 15:00: or chew. Syed 00 (Same As: Ecotrin) Aspirin No Notes: Do Memor ia 3-02 not crush l 15:00: or chew. Syed 00 (Same As: Ecotrin) Miralax No Notes: Memoria 3-01 Dissolve l 15:00: in 8 oz of Constantia 00 water or juice. (Same as: Miralax) Docusate No Notes: Memoria Sodium 50 3-01 (Same as l MG / 15:00: Senokot-S) Syed sennosides, 00 Equiv. to CARE HOME 8.6 MG Jacinta-[place] Oral Tablet e. Miralax No Notes: Memoria 3-01 Dissolve l 15:00: in 8 oz of Constantia 00 water or juice. (Same as: Miralax) Docusate No Notes: Memoria Sodium 50 3-01 (Same as l MG / 15:00: Senokot-S) Syed sennosides, 00 Equiv. to CARE HOME 8.6 MG Jac[place] Oral Tablet e. Miralax No Notes: Memoria 3-01 Dissolve l 15:00: in 8 oz of Constantia 00 water or juice. (Same as: Miralax) Docusate No Notes: Memoria Sodium 50 3-01 (Same as l MG / 15:00: Senokot-S) Syed sennosides, 00 Equiv. to CARE HOME 8.6 MG Jac[place] Oral Tablet e. Miralax No Notes: Memoria 3-01 Dissolve l 15:00: in 8 oz of Syed 00 water or juice. (Same as: Miralax) Docusate No Notes: Memoria Sodium 50 3-01 (Same as l MG / 15:00: Senokot-S) Syed sennosides, 00 Equiv. to CARE HOME 8.6 MG Jacinta-[place] Oral Tablet e. Miralax No Notes: Memoria 3-01 Dissolve l 15:00: in 8 oz of Constantia 00 water or juice. (Same as: Miralax) Docusate No Notes: Memoria Sodium 50 3-01 (Same as l MG / 15:00: Senokot-S) Syed sennosides, 00 Equiv. to CARE HOME 8.6 MG Jacinta-[place] Oral Tablet e. Miralax No Notes: Memoria 3-01 Dissolve l 15:00: in 8 oz of Constantia 00 water or juice. (Same as: Miralax) Docusate No Notes: Memoria Sodium 50 3-01 (Same as l MG / 15:00: Senokot-S) Syed sennosides, 00 Equiv. to CARE HOME 8.6 MG Jac[place] Oral Tablet e. Miralax No Notes: Memoria 3-01 Dissolve l 15:00: in 8 oz of Syed 00 water or juice. (Same as: Miralax) Docusate No Notes: Memoria Sodium 50 3-01 (Same as l MG / 15:00: Senokot-S) Syed sennosides, 00 Equiv. to CARE HOME 8.6 MG Jacinta-[place] Oral Tablet e. Miralax No Notes: Memoria 3-01 Dissolve l 15:00: in 8 oz of Constantia 00 water or juice. (Same as: Miralax) Docusate No Notes: Memoria Sodium 50 3-01 (Same as l MG / 15:00: Senokot-S) Constantia sennosides, 00 Equiv. to CARE HOME 8.6 MG Jac[place] Oral Tablet e. Miralax No Notes: Memoria 3-01 Dissolve l 15:00: in 8 oz of Constantia 00 water or juice. (Same as: Miralax) Docusate No Notes: Memoria Sodium 50 3-01 (Same as l MG / 15:00: Senokot-S) Syed sennosides, 00 Equiv. to CARE HOME 8.6 MG Jacinta-[place] Oral Tablet e. Miralax No Notes: Memoria 3-01 Dissolve l 15:00: in 8 oz of Constantia 00 water or juice. (Same as: Miralax) Docusate No Notes: Memoria Sodium 50 3-01 (Same as l MG / 15:00: Senokot-S) Constantia sennosides, 00 Equiv. to CARE HOME 8.6 MG Jac[place] Oral Tablet e. Miralax No Notes: Memoria 3-01 Dissolve l 15:00: in 8 oz of Syed 00 water or juice. (Same as: Miralax) Docusate No Notes: Memoria Sodium 50 3-01 (Same as l MG / 15:00: Senokot-S) Constantia sennosides, 00 Equiv. to CARE HOME 8.6 MG Jac[place] Oral Tablet e. Miralax No Notes: Memoria 3-01 Dissolve l 15:00: in 8 oz of Constantia 00 water or juice. (Same as: Miralax) Docusate No Notes: Memoria Sodium 50 3-01 (Same as l MG / 15:00: Senokot-S) Syed sennosides, 00 Equiv. to CARE HOME 8.6 MG Jacinta-[place] Oral Tablet e. Sodium 2-0 No 500 mL, Memoria Chloride 3-01 500 ml/hr, l 0.9% 08:07: Infuse Constantia (Bolus) IV 00 Over: 1 hr, Route: IV, ONCE, Priority: STAT, Dosing Weight 73.8 kg, Start date: 01/09/22 2:07:00 CATH LAB RADIOLOGICAL TECHNOLOGIST, Stop date: 01/09/22 2:07:00 CATH LAB RADIOLOGICAL TECHNOLOGIST Sodium 2022-0 No 500 mL, Memoria Chloride 3-01 500 ml/hr, l 0.9% 08:07: Infuse Syed (Bolus) IV 00 Over: 1 hr, Route: IV, ONCE, Priority: STAT, Dosing Weight 73.8 kg, Start date: 01/09/22 2:07:00 CATH LAB RADIOLOGICAL TECHNOLOGIST, Stop date: 01/09/22 2:07:00 CATH LAB RADIOLOGICAL TECHNOLOGIST Sodium 2022-0 No 500 mL, Memoria Chloride 3-01 500 ml/hr, l 0.9% 08:07: Infuse Constantia (Bolus) IV 00 Over: 1 hr, Route: IV, ONCE, Priority: STAT, Dosing Weight 73.8 kg, Start date: 01/09/22 2:07:00 CATH LAB RADIOLOGICAL TECHNOLOGIST, Stop date: 01/09/22 2:07:00 CATH LAB RADIOLOGICAL TECHNOLOGIST Sodium 2022-0 No 500 mL, Memoria Chloride 3-01 500 ml/hr, l 0.9% 08:07: Infuse Syed (Bolus) IV 00 Over: 1 hr, Route: IV, ONCE, Priority: STAT, Dosing Weight 73.8 kg, Start date: 01/09/22 2:07:00 CATH LAB RADIOLOGICAL TECHNOLOGIST, Stop date: 01/09/22 2:07:00 CATH LAB RADIOLOGICAL TECHNOLOGIST Sodium 2022-0 No 500 mL, Memoria Chloride 3-01 500 ml/hr, l 0.9% 08:07: Infuse Syed (Bolus) IV 00 Over: 1 hr, Route: IV, ONCE, Priority: STAT, Dosing Weight 73.8 kg, Start date: 01/09/22 2:07:00 CATH LAB RADIOLOGICAL TECHNOLOGIST, Stop date: 01/09/22 2:07:00 CATH LAB RADIOLOGICAL TECHNOLOGIST Sodium 2022-0 No 500 mL, Memoria Chloride 3-01 500 ml/hr, l 0.9% 08:07: Infuse Constantia (Bolus) IV 00 Over: 1 hr, Route: IV, ONCE, Priority: STAT, Dosing Weight 73.8 kg, Start date: 01/09/22 2:07:00 CATH LAB RADIOLOGICAL TECHNOLOGIST, Stop date: 01/09/22 2:07:00 CATH LAB RADIOLOGICAL TECHNOLOGIST Sodium 2022-0 No 500 mL, Memoria Chloride 3-01 500 ml/hr, l 0.9% 08:07: Infuse Syed (Bolus) IV 00 Over: 1 hr, Route: IV, ONCE, Priority: STAT, Dosing Weight 73.8 kg, Start date: 01/09/22 2:07:00 CATH LAB RADIOLOGICAL TECHNOLOGIST, Stop date: 01/09/22 2:07:00 CATH LAB RADIOLOGICAL TECHNOLOGIST Sodium 2022-0 No 500 mL, Memoria Chloride 3-01 500 ml/hr, l 0.9% 08:07: Infuse Syed (Bolus) IV 00 Over: 1 hr, Route: IV, ONCE, Priority: STAT, Dosing Weight 73.8 kg, Start date: 01/09/22 2:07:00 CATH LAB RADIOLOGICAL TECHNOLOGIST, Stop date: 01/09/22 2:07:00 CATH LAB RADIOLOGICAL TECHNOLOGIST Sodium 2022-0 No 500 mL, Memoria Chloride 3-01 500 ml/hr, l 0.9% 08:07: Infuse Syed (Bolus) IV 00 Over: 1 hr, Route: IV, ONCE, Priority: STAT, Dosing Weight 73.8 kg, Start date: 01/09/22 2:07:00 CATH LAB RADIOLOGICAL TECHNOLOGIST, Stop date: 01/09/22 2:07:00 CATH LAB RADIOLOGICAL TECHNOLOGIST Sodium 2022-0 No 500 mL, Memoria Chloride 3-01 500 ml/hr, l 0.9% 08:07: Infuse Syed (Bolus) IV 00 Over: 1 hr, Route: IV, ONCE, Priority: STAT, Dosing Weight 73.8 kg, Start date: 01/09/22 2:07:00 CATH LAB RADIOLOGICAL TECHNOLOGIST, Stop date: 01/09/22 2:07:00 CATH LAB RADIOLOGICAL TECHNOLOGIST Sodium 2022-0 No 500 mL, Memoria Chloride 3-01 500 ml/hr, l 0.9% 08:07: Infuse Constantia (Bolus) IV 00 Over: 1 hr, Route: IV, ONCE, Priority: STAT, Dosing Weight 73.8 kg, Start date: 01/09/22 2:07:00 CATH LAB RADIOLOGICAL TECHNOLOGIST, Stop date: 01/09/22 2:07:00 CATH LAB RADIOLOGICAL TECHNOLOGIST Sodium 2-0 No 500 mL, Memoria Chloride 3-01 500 ml/hr, l 0.9% 08:07: Infuse Constantia (Bolus) IV 00 Over: 1 hr, Route: IV, ONCE, Priority: STAT, Dosing Weight 73.8 kg, Start date: 01/09/22 2:07:00 CATH LAB RADIOLOGICAL TECHNOLOGIST, Stop date: 01/09/22 2:07:00 CATH LAB RADIOLOGICAL TECHNOLOGIST NS (Bolus) 2-0 No 500 mL, Ervin marybel IV 3-01 500 ml/hr, l 06:55: Infuse Constantia 00 Over: 1 hr, Route: IV, 500, Drug form: INJ, ONCE, Priority: STAT, Dosing Weight 73.8 kg, Start date: 01/09/22 0:55:00 CATH LAB RADIOLOGICAL TECHNOLOGIST, Stop date: 01/09/22 0:55:00 CATH LAB RADIOLOGICAL TECHNOLOGIST, 0 NS (Bolus) 2-0 No 500 mL, Ervin marybel IV 3-01 500 ml/hr, l 06:55: Infuse Constantia 00 Over: 1 hr, Route: IV, 500, Drug form: INJ, ONCE, Priority: STAT, Dosing Weight 73.8 kg, Start date: 01/09/22 0:55:00 CATH LAB RADIOLOGICAL TECHNOLOGIST, Stop date: 01/09/22 0:55:00 CATH LAB RADIOLOGICAL TECHNOLOGIST, 0 NS (Bolus) 2-0 No 500 mL, Ervin marybel IV 3-01 500 ml/hr, l 06:55: Infuse Syed 00 Over: 1 hr, Route: IV, 500, Drug form: INJ, ONCE, Priority: STAT, Dosing Weight 73.8 kg, Start date: 01/09/22 0:55:00 CATH LAB RADIOLOGICAL TECHNOLOGIST, Stop date: 01/09/22 0:55:00 CATH LAB RADIOLOGICAL TECHNOLOGIST, 0 NS (Bolus) 0 No 500 mL, Ervin marybel IV 3-01 500 ml/hr, l 06:55: Infuse Constantia 00 Over: 1 hr, Route: IV, 500, Drug form: INJ, ONCE, Priority: STAT, Dosing Weight 73.8 kg, Start date: 01/09/22 0:55:00 CATH LAB RADIOLOGICAL TECHNOLOGIST, Stop date: 01/09/22 0:55:00 CATH LAB RADIOLOGICAL TECHNOLOGIST, 0 NS (Bolus) 2021-0 No 500 mL, Ervin marybel IV 3-01 500 ml/hr, l 06:55: Infuse Syed 00 Over: 1 hr, Route: IV, 500, Drug form: INJ, ONCE, Priority: STAT, Dosing Weight 73.8 kg, Start date: 01/09/22 0:55:00 CATH LAB RADIOLOGICAL TECHNOLOGIST, Stop date: 01/09/22 0:55:00 CATH LAB RADIOLOGICAL TECHNOLOGIST, 0 NS (Bolus) 0 No 500 mL, Ervni marybel IV 3-01 500 ml/hr, l 06:55: Infuse Constantia 00 Over: 1 hr, Route: IV, 500, Drug form: INJ, ONCE, Priority: STAT, Dosing Weight 73.8 kg, Start date: 01/09/22 0:55:00 CATH LAB RADIOLOGICAL TECHNOLOGIST, Stop date: 01/09/22 0:55:00 CATH LAB RADIOLOGICAL TECHNOLOGIST, 0 NS (Bolus) 0 No 500 mL, Ervin marybel IV 3- 500 ml/hr, l 06:55: Infuse Constantia 00 Over: 1 hr, Route: IV, 500, Drug form: INJ, ONCE, Priority: STAT, Dosing Weight 73.8 kg, Start date: 01/09/22 0:55:00 CATH LAB RADIOLOGICAL TECHNOLOGIST, Stop date: 01/09/22 0:55:00 CATH LAB RADIOLOGICAL TECHNOLOGIST, 0 NS (Bolus) 0 No 500 mL, Ervin marybel IV 3-01 500 ml/hr, l 06:55: Infuse Constantia 00 Over: 1 hr, Route: IV, 500, Drug form: INJ, ONCE, Priority: STAT, Dosing Weight 73.8 kg, Start date: 01/09/22 0:55:00 CATH LAB RADIOLOGICAL TECHNOLOGIST, Stop date: 01/09/22 0:55:00 CATH LAB RADIOLOGICAL TECHNOLOGIST, 0 NS (Bolus) 0 No 500 mL, Ervin marybel IV 3-01 500 ml/hr, l 06:55: Infuse Constantia 00 Over: 1 hr, Route: IV, 500, Drug form: INJ, ONCE, Priority: STAT, Dosing Weight 73.8 kg, Start date: 01/09/22 0:55:00 CATH LAB RADIOLOGICAL TECHNOLOGIST, Stop date: 01/09/22 0:55:00 CATH LAB RADIOLOGICAL TECHNOLOGIST, 0 NS (Bolus) 0 No 500 mL, Ervin marybel IV 3-01 500 ml/hr, l 06:55: Infuse Constantia 00 Over: 1 hr, Route: IV, 500, Drug form: INJ, ONCE, Priority: STAT, Dosing Weight 73.8 kg, Start date: 01/09/22 0:55:00 CATH LAB RADIOLOGICAL TECHNOLOGIST, Stop date: 01/09/22 0:55:00 CATH LAB RADIOLOGICAL TECHNOLOGIST, 0 NS (Bolus) 0 No 500 mL, Ervin marybel IV 3-01 500 ml/hr, l 06:55: Infuse Constantia 00 Over: 1 hr, Route: IV, 500, Drug form: INJ, ONCE, Priority: STAT, Dosing Weight 73.8 kg, Start date: 01/09/22 0:55:00 CATH LAB RADIOLOGICAL TECHNOLOGIST, Stop date: 01/09/22 0:55:00 CATH LAB RADIOLOGICAL TECHNOLOGIST, 0 NS (Bolus) 0 No 500 mL, Ervin marybel IV 3-01 500 ml/hr, l 06:55: Infuse Syed 00 Over: 1 hr, Route: IV, 500, Drug form: INJ, ONCE, Priority: STAT, Dosing Weight 73.8 kg, Start date: 01/09/22 0:55:00 CATH LAB RADIOLOGICAL TECHNOLOGIST, Stop date: 01/09/22 0:55:00 CATH LAB RADIOLOGICAL TECHNOLOGIST, 0 Acetaminoph No Notes: Do M emoria en 2-28 not exceed l 16:37: 4 gm/day. Constantia 00 (Same as: Tylenol) Acetaminoph No Notes: Do M emoria en 2-28 not exceed l 16:37: 4 gm/day. Constantia 00 (Same as: Tylenol) Acetaminoph No Notes: Do M emoria en 2-28 not exceed l 16:37: 4 gm/day. Constantia 00 (Same as: Tylenol) Acetaminoph No Notes: Do M emoria en 2-28 not exceed l 16:37: 4 gm/day. Constantia 00 (Same as: Tylenol) Acetaminoph No Notes: Do M emoria en - not exceed l 16:37: 4 gm/day. Syed 00 (Same as: Tylenol) Acetaminoph No Notes: Do M emoria en 2-28 not exceed l 16:37: 4 gm/day. (Same as: Tylenol) Acetaminoph No Notes: Do M emoria en - not exceed l 16:37: 4 gm/day. (Same as: Tylenol) Acetaminoph No Notes: Do M emoria en 2- not exceed l 16:37: 4 gm/day. (Same as: Tylenol) Acetaminoph No Notes: Do M emoria en 2- not exceed l 16:37: 4 gm/day. (Same as: Tylenol) Acetaminoph No Notes: Do M emoria en - not exceed l 16:37: 4 gm/day. (Same as: Tylenol) Acetaminoph No Notes: Do M emoria en - not exceed l 16:37: 4 gm/day. (Same as: Tylenol) Acetaminoph No Notes: Do M emoria en -28 not exceed l 16:37: 4 gm/day. (Same as: Tylenol) Sodium No 500 mL, Memoria Chloride - 1000 l 0.9% 14:28: ml/hr, Constantia (Bolus) IV 00 Infuse Over: 30 minutes, Route: IV, 500, Drug form: INJ, ONCE, Priority: STAT, Dosing Weight 73.8 kg, Start date: 01/08/22 8:28:00 CATH LAB RADIOLOGICAL TECHNOLOGIST, Stop date: 01/08/22 8:28:00 CATH LAB RADIOLOGICAL TECHNOLOGIST, 0 Sodium No Notes: Memoria polystyrene - (sodium l sulfonate 14:28: polystyren He rmann 00 e sulfonate 15 gm/60 ml ELVIA) Shake well before use. (Same as: Kayexalate , SPS) Calcium No Notes: Memoria Gluconate 28 WASTE: F/P l 14:28: - Sink; E Syed 00 - [facility] Trash Bin Albuterol No Notes: SEE Me moria 0.83 MG/ML 2-28 RT l Inhalant 14:28: DOCUMENTAT Her feng Solution 00 ION (Same as: Proventil) Sodium No 500 mL, Memoria Chloride 2-28 1000 l 0.9% 14:28: ml/hr, Constantia (Bolus) IV 00 Infuse Over: 30 minutes, Route: IV, 500, Drug form: INJ, ONCE, Priority: STAT, Dosing Weight 73.8 kg, Start date: 01/08/22 8:28:00 CATH LAB RADIOLOGICAL TECHNOLOGIST, Stop date: 01/08/22 8:28:00 CATH LAB RADIOLOGICAL TECHNOLOGIST, 0 Sodium No Notes: Memoria polystyrene 2-28 (sodium l sulfonate 14:28: polystyren He rmann 00 e sulfonate 15 gm/60 ml ELVIA) Shake well before use. (Same as: Kayexalate , SPS) Calcium No Notes: Memoria Gluconate - WASTE: F/P l 14:28: - Sink; E Syed 00 - [facility] Trash Bin Albuterol No Notes: SEE Me moria 0.83 MG/ML - RT l Inhalant 14:28: DOCUMENTAT Her feng Solution 00 ION (Same as: Proventil) Sodium No 500 mL, Memoria Chloride -28 1000 l 0.9% 14:28: ml/hr, Constantia (Bolus) IV 00 Infuse Over: 30 minutes, Route: IV, 500, Drug form: INJ, ONCE, Priority: STAT, Dosing Weight 73.8 kg, Start date: 01/08/22 8:28:00 CATH LAB RADIOLOGICAL TECHNOLOGIST, Stop date: 01/08/22 8:28:00 CATH LAB RADIOLOGICAL TECHNOLOGIST, 0 Sodium No Notes: Memoria polystyrene 2-28 (sodium l sulfonate 14:28: polystyren He rmann 00 e sulfonate 15 gm/60 ml ELVIA) Shake well before use. (Same as: Kayexalate , SPS) Calcium No Notes: Memoria Gluconate 2-28 WASTE: F/P l 14:28: - Sink; E Syed 00 - [facility] Trash Bin Albuterol No Notes: SEE Me moria 0.83 MG/ML 2-28 RT l Inhalant 14:28: DOCUMENTAT Her feng Solution 00 ION (Same as: Proventil) Sodium No 500 mL, Memoria Chloride 2-28 1000 l 0.9% 14:28: ml/hr, Syed (Bolus) IV 00 Infuse Over: 30 minutes, Route: IV, 500, Drug form: INJ, ONCE, Priority: STAT, Dosing Weight 73.8 kg, Start date: 01/08/22 8:28:00 CATH LAB RADIOLOGICAL TECHNOLOGIST, Stop date: 01/08/22 8:28:00 CATH LAB RADIOLOGICAL TECHNOLOGIST, 0 Sodium No Notes: Memoria polystyrene 2-28 (sodium l sulfonate 14:28: polystyren He rmann 00 e sulfonate 15 gm/60 ml ELVIA) Shake well before use. (Same as: Kayexalate , SPS) Calcium No Notes: Memoria Gluconate 2-28 WASTE: F/P l 14:28: - Sink; E Syed - [facility] Trash Bin Albuterol No Notes: SEE Me moria 0.83 MG/ML 2-28 RT l Inhalant 14:28: DOCUMENTAT Her feng Solution 00 ION (Same as: Proventil) Sodium No 500 mL, Memoria Chloride 2-28 1000 l 0.9% 14:28: ml/hr, Constantia (Bolus) IV 00 Infuse Over: 30 minutes, Route: IV, 500, Drug form: INJ, ONCE, Priority: STAT, Dosing Weight 73.8 kg, Start date: 01/08/22 8:28:00 CATH LAB RADIOLOGICAL TECHNOLOGIST, Stop date: 01/08/22 8:28:00 CATH LAB RADIOLOGICAL TECHNOLOGIST, 0 Sodium No Notes: Memoria polystyrene 2-28 (sodium l sulfonate 14:28: polystyren He rmann 00 e sulfonate 15 gm/60 ml ELVIA) Shake well before use. (Same as: Kayexalate , SPS) Calcium No Notes: Memoria Gluconate 2-28 WASTE: F/P l 14:28: - Sink; E Syed 00 - Municipal Trash Bin Albuterol No Notes: SEE Me moria 0.83 MG/ML 2-28 RT l Inhalant 14:28: DOCUMENTAT Her feng Solution 00 ION (Same as: Proventil) Sodium 2021-0 No 500 mL, Memoria Chloride 2-28 1000 l 0.9% 14:28: ml/hr, Constantia (Bolus) IV 00 Infuse Over: 30 minutes, Route: IV, 500, Drug form: INJ, ONCE, Priority: STAT, Dosing Weight 73.8 kg, Start date: 01/08/22 8:28:00 CATH LAB RADIOLOGICAL TECHNOLOGIST, Stop date: 01/08/22 8:28:00 CATH LAB RADIOLOGICAL TECHNOLOGIST, 0 Sodium No Notes: Memoria polystyrene 2-28 (sodium l sulfonate 14:28: polystyren He rmann 00 e sulfonate 15 gm/60 ml ELVIA) Shake well before use. (Same as: Kayexalate , SPS) Calcium No Notes: Memoria Gluconate 2- WASTE: F/P l 14:28: - Sink; E Constantia - Municipal Trash Bin Albuterol No Notes: SEE Me moria 0.83 MG/ML 2- RT l Inhalant 14:28: DOCUMENTAT Her feng Solution 00 ION (Same as: Proventil) Sodium No 500 mL, Memoria Chloride - 1000 l 0.9% 14:28: ml/hr, Constantia (Bolus) IV 00 Infuse Over: 30 minutes, Route: IV, 500, Drug form: INJ, ONCE, Priority: STAT, Dosing Weight 73.8 kg, Start date: 01/08/22 8:28:00 CATH LAB RADIOLOGICAL TECHNOLOGIST, Stop date: 01/08/22 8:28:00 CATH LAB RADIOLOGICAL TECHNOLOGIST, 0 Sodium 2021-0 No Notes: Memoria polystyrene 2-28 (sodium l sulfonate 14:28: polystyren He rmann 00 e sulfonate 15 gm/60 ml ELVIA) Shake well before use. (Same as: Kayexalate , SPS) Calcium No Notes: Memoria Gluconate 2-28 WASTE: F/P l 14:28: - Sink; E Constantia 00 - Municipal Trash Bin Albuterol No Notes: SEE Me moria 0.83 MG/ML 2-28 RT l Inhalant 14:28: DOCUMENTAT Her feng Solution 00 ION (Same as: Proventil) Sodium 2021-0 No 500 mL, Memoria Chloride 2-28 1000 l 0.9% 14:28: ml/hr, Constantia (Bolus) IV 00 Infuse Over: 30 minutes, Route: IV, 500, Drug form: INJ, ONCE, Priority: STAT, Dosing Weight 73.8 kg, Start date: 01/08/22 8:28:00 CATH LAB RADIOLOGICAL TECHNOLOGIST, Stop date: 01/08/22 8:28:00 CATH LAB RADIOLOGICAL TECHNOLOGIST, 0 Sodium No Notes: Memoria polystyrene 2-28 (sodium l sulfonate 14:28: polystyren He rmann 00 e sulfonate 15 gm/60 ml ELVIA) Shake well before use. (Same as: Kayexalate , SPS) Calcium No Notes: Memoria Gluconate 2- WASTE: F/P l 14:28: - Sink; E Syed 00 - Municipal Trash Bin Albuterol No Notes: SEE Me moria 0.83 MG/ML 2-28 RT l Inhalant 14:28: DOCUMENTAT Her feng Solution 00 ION (Same as: Proventil) Sodium No 500 mL, Memoria Chloride 2-28 1000 l 0.9% 14:28: ml/hr, Constantia (Bolus) IV 00 Infuse Over: 30 minutes, Route: IV, 500, Drug form: INJ, ONCE, Priority: STAT, Dosing Weight 73.8 kg, Start date: 01/08/22 8:28:00 CATH LAB RADIOLOGICAL TECHNOLOGIST, Stop date: 01/08/22 8:28:00 CATH LAB RADIOLOGICAL TECHNOLOGIST, 0 Sodium No Notes: Memoria polystyrene 2-28 (sodium l sulfonate 14:28: polystyren He rmann 00 e sulfonate 15 gm/60 ml ELVIA) Shake well before use. (Same as: Kayexalate , SPS) Calcium No Notes: Memoria Gluconate 2-28 WASTE: F/P l 14:28: - Sink; E Syed 00 - Municipal Trash Bin Albuterol No Notes: SEE Me moria 0.83 MG/ML 2-28 RT l Inhalant 14:28: DOCUMENTAT Her feng Solution 00 ION (Same as: Proventil) Sodium 0 No 500 mL, Memoria Chloride 2-28 1000 l 0.9% 14:28: ml/hr, Syed (Bolus) IV 00 Infuse Over: 30 minutes, Route: IV, 500, Drug form: INJ, ONCE, Priority: STAT, Dosing Weight 73.8 kg, Start date: 01/08/22 8:28:00 CATH LAB RADIOLOGICAL TECHNOLOGIST, Stop date: 01/08/22 8:28:00 CATH LAB RADIOLOGICAL TECHNOLOGIST, 0 Sodium 2021-0 No Notes: Memoria polystyrene 2-28 (sodium l sulfonate 14:28: polystyren He rmann 00 e sulfonate 15 gm/60 ml ELVIA) Shake well before use. (Same as: Kayexalate , SPS) Calcium No Notes: Memoria Gluconate 2- WASTE: F/P l 14:28: - Sink; E Syed 00 - Municipal Trash Bin Albuterol No Notes: SEE Me moria 0.83 MG/ML 2- RT l Inhalant 14:28: DOCUMENTAT Her feng Solution 00 ION (Same as: Proventil) Sodium No 500 mL, Memoria Chloride 2-28 1000 l 0.9% 14:28: ml/hr, Syed (Bolus) IV 00 Infuse Over: 30 minutes, Route: IV, 500, Drug form: INJ, ONCE, Priority: STAT, Dosing Weight 73.8 kg, Start date: 01/08/22 8:28:00 CATH LAB RADIOLOGICAL TECHNOLOGIST, Stop date: 01/08/22 8:28:00 CATH LAB RADIOLOGICAL TECHNOLOGIST, 0 Sodium 2021-0 No Notes: Memoria polystyrene 2-28 (sodium l sulfonate 14:28: polystyren He rmann 00 e sulfonate 15 gm/60 ml ELVIA) Shake well before use. (Same as: Kayexalate , SPS) Calcium No Notes: Memoria Gluconate 2-28 WASTE: F/P l 14:28: - Sink; E Constantia 00 - Municipal Trash Bin Albuterol No Notes: SEE Me moria 0.83 MG/ML 2- RT l Inhalant 14:28: DOCUMENTAT Her feng Solution 00 ION (Same as: Proventil) Sodium 0 No 500 mL, Memoria Chloride 2-28 1000 l 0.9% 14:28: ml/hr, Syed (Bolus) IV 00 Infuse Over: 30 minutes, Route: IV, 500, Drug form: INJ, ONCE, Priority: STAT, Dosing Weight 73.8 kg, Start date: 01/08/22 8:28:00 CATH LAB RADIOLOGICAL TECHNOLOGIST, Stop date: 01/08/22 8:28:00 CATH LAB RADIOLOGICAL TECHNOLOGIST, 0 Sodium No Notes: Memoria polystyrene 01-08 (sodium l sulfonate 14:28: polystyren He rmann 00 e sulfonate 15 gm/60 ml ELVIA) Shake well before use. (Same as: Kayexalate , SPS) Calcium No Notes: Mem[facility] Gluconate 01-08 WASTE: F/P l 14:28: - Sink; E Constantia - Municipal Trash Bin Albuterol No Notes: SEE Me moria 0.83 MG/ML 01-08 RT l Inhalant 14:28: DOCUMENTAT Her feng Solution 00 ION (Same as: Proventil) Plavix No Notes: Memoria 2-25 (Same As: l 15:00: Plavix) Amiodarone No Notes: Memor ia 2-25 (Same as: l 15:00: Cordarone) Eliquis No Notes: Memoria 2-25 Same as: l 15:00: Eliquis Syed Plavix No Notes: Memoria 2-25 (Same As: l 15:00: Plavix) Amiodarone No Notes: Memor ia 2-25 (Same as: l 15:00: Cordarone) Syed Eliquis No Notes: Memoria 2-25 Same as: l 15:00: Eliquis Syed Plavix No Notes: Memoria 2-25 (Same As: l 15:00: Plavix) Constantia 00 Amiodarone No Notes: Memor ia 2-25 (Same as: l 15:00: Cordarone) Syed Eliquis No Notes: Memoria 2-25 Same as: l 15:00: Eliquis Constantia Plavix No Notes: Memoria 2-25 (Same As: l 15:00: Plavix) Syed 00 Amiodarone No Notes: Memor ia 2-25 (Same as: l 15:00: Cordarone) Syed 00 Eliquis 0 No Notes: Memoria 2-25 Same as: l 15:00: Eliquis Constantia 00 Plavix No Notes: Memoria 2-25 (Same As: l 15:00: Plavix) Constantia Amiodarone No Notes: Memor ia 2-25 (Same as: l 15:00: Cordarone) Syed Eliquis No Notes: Memoria 2-25 Same as: l 15:00: Eliquis Syed 00 Plavix No Notes: Memoria 2-25 (Same As: l 15:00: Plavix) Syed Amiodarone No Notes: Memor ia 2-25 (Same as: l 15:00: Cordarone) Constantia Eliquis No Notes: Memoria 2-25 Same as: l 15:00: Eliquis Syed 00 Plavix No Notes: Memoria 2-25 (Same As: l 15:00: Plavix) Syed Amiodarone No Notes: Memor ia 2-25 (Same as: l 15:00: Cordarone) Constantia 00 Eliquis No Notes: Memoria 2-25 Same as: l 15:00: Eliquis Constantia 00 Plavix 0 No Notes: Memoria 2-25 (Same As: l 15:00: Plavix) Syed Amiodarone 0 No Notes: Memor ia 2-25 (Same as: l 15:00: Cordarone) Syed 00 Eliquis No Notes: Memoria 2-25 Same as: l 15:00: Eliquis Syed 00 Plavix 0 No Notes: Memoria 2-25 (Same As: l 15:00: Plavix) Constantia 00 Amiodarone 0 No Notes: Memor ia 2-25 (Same as: l 15:00: Cordarone) Constantia 00 Eliquis 0 No Notes: Memoria 2-25 Same as: l 15:00: Eliquis Syed 00 Plavix 0 No Notes: Memoria 2-25 (Same As: l 15:00: Plavix) Constantia Amiodarone No Notes: Memor ia 2-25 (Same as: l 15:00: Cordarone) Syed 00 Eliquis 0 No Notes: Memoria 2-25 Same as: l 15:00: Eliquis Syed 00 Plavix 0 No Notes: Memoria 2-25 (Same As: l 15:00: Plavix) Constantia Amiodarone 0 No Notes: Memor ia 2-25 (Same as: l 15:00: Cordarone) Constantia Eliquis No Notes: Memoria 2-25 Same as: l 15:00: Eliquis Constantia 00 Plavix No Notes: Memoria 2-25 (Same As: l 15:00: Plavix) Syed Amiodarone No Notes: Memor ia 2-25 (Same as: l 15:00: Cordarone) Constantia 00 Eliquis No Notes: Memoria 2-25 Same as: l 15:00: Eliquis Constantia 00 Miralax No Notes: Memoria 2-24 Dissolve l 15:00: in 8 oz of Syed 00 water or juice. (Same as: Miralax) Miralax 0 No Notes: Memoria 2-24 Dissolve l 15:00: in 8 oz of Syed 00 water or juice. (Same as: Miralax) Miralax 0 No Notes: Memoria 2-24 Dissolve l 15:00: in 8 oz of Syed 00 water or juice. (Same as: Miralax) Miralax 0 No Notes: Memoria 2-24 Dissolve l 15:00: in 8 oz of Syed 00 water or juice. (Same as: Miralax) Miralax 0 No Notes: Memoria 2-24 Dissolve l 15:00: in 8 oz of Syed 00 water or juice. (Same as: Miralax) Miralax 0 No Notes: Memoria 2-24 Dissolve l 15:00: in 8 oz of Syed 00 water or juice. (Same as: Miralax) Miralax 0 No Notes: Memoria 2-24 Dissolve l 15:00: in 8 oz of Syed 00 water or juice. (Same as: Miralax) Miralax 0 No Notes: Memoria 2-24 Dissolve l 15:00: in 8 oz of Constantia 00 water or juice. (Same as: Miralax) Miralax 0 No Notes: Memoria 2-24 Dissolve l 15:00: in 8 oz of Constantia 00 water or juice. (Same as: Miralax) Miralax 0 No Notes: Memoria 2-24 Dissolve l 15:00: in 8 oz of Syed 00 water or juice. (Same as: Miralax) Miralax 0 No Notes: Memoria 2-24 Dissolve l 15:00: in 8 oz of Syed 00 water or juice. (Same as: Miralax) Miralax 0 No Notes: Memoria 2-24 Dissolve l 15:00: in 8 oz of Syed 00 water or juice. (Same as: Miralax) Fleet Enema 2021-0 No 133 mL, Mem oria 2-24 Route: [place], l 14:14: Drug Form: Syed 00 SANKET, Dosing Weight 73.8, kg, ONCE, Within 4 hours, Start date: 01/04/22 8:14:00 CATH LAB RADIOLOGICAL TECHNOLOGIST, Stop date: 01/04/22 8:14:00 CATH LAB RADIOLOGICAL TECHNOLOGIST, 0 Fleet Enema 2021-0 No 133 mL, Mem oria 2-24 Route: [place], l 14:14: Drug Form: Syed 00 SANKET, Dosing Weight 73.8, kg, ONCE, Within 4 hours, Start date: 01/04/22 8:14:00 CATH LAB RADIOLOGICAL TECHNOLOGIST, Stop date: 01/04/22 8:14:00 CATH LAB RADIOLOGICAL TECHNOLOGIST, 0 Fleet Enema 2-0 No 133 mL, Mem oria 2-24 Route: [place], l 14:14: Drug Form: Syed 00 SANKET, Dosing Weight 73.8, kg, ONCE, Within 4 hours, Start date: 01/04/22 8:14:00 CATH LAB RADIOLOGICAL TECHNOLOGIST, Stop date: 01/04/22 8:14:00 CATH LAB RADIOLOGICAL TECHNOLOGIST, 0 Fleet Enema 2022-0 No 133 mL, Mem oria 2-24 Route: [place], l 14:14: Drug Form: Syed Foster SANKET, Dosing Weight 73.8, kg, ONCE, Within 4 hours, Start date: 01/04/22 8:14:00 CATH LAB RADIOLOGICAL TECHNOLOGIST, Stop date: 01/04/22 8:14:00 CATH LAB RADIOLOGICAL TECHNOLOGIST, 0 Fleet Enema 2022-0 No 133 mL, Mem oria 2-24 Route: [place], l 14:14: Drug Form: Syed Foster SANKET, Dosing Weight 73.8, kg, ONCE, Within 4 hours, Start date: 01/04/22 8:14:00 CATH LAB RADIOLOGICAL TECHNOLOGIST, Stop date: 01/04/22 8:14:00 CATH LAB RADIOLOGICAL TECHNOLOGIST, 0 Fleet Enema 2022-0 No 133 mL, Mem oria 2-24 Route: [place], l 14:14: Drug Form: Syed Foster SANKET, Dosing Weight 73.8, kg, ONCE, Within 4 hours, Start date: 01/04/22 8:14:00 CATH LAB RADIOLOGICAL TECHNOLOGIST, Stop date: 01/04/22 8:14:00 CATH LAB RADIOLOGICAL TECHNOLOGIST, 0 Fleet Enema 2022-0 No 133 mL, Mem oria 2-24 Route: [place], l 14:14: Drug Form: Syed Foster SANKET, Dosing Weight 73.8, kg, ONCE, Within 4 hours, Start date: 01/04/22 8:14:00 CATH LAB RADIOLOGICAL TECHNOLOGIST, Stop date: 01/04/22 8:14:00 CATH LAB RADIOLOGICAL TECHNOLOGIST, 0 Fleet Enema 2022-0 No 133 mL, Mem oria 2-24 Route: [place], l 14:14: Drug Form: Syed Foster SANKET, Dosing Weight 73.8, kg, ONCE, Within 4 hours, Start date: 01/04/22 8:14:00 CATH LAB RADIOLOGICAL TECHNOLOGIST, Stop date: 01/04/22 8:14:00 CATH LAB RADIOLOGICAL TECHNOLOGIST, 0 Fleet Enema 2022-0 No 133 mL, Mem oria 2-24 Route: [place], l 14:14: Drug Form: Syed Foster SANKET, Dosing Weight 73.8, kg, ONCE, Within 4 hours, Start date: 01/04/22 8:14:00 CATH LAB RADIOLOGICAL TECHNOLOGIST, Stop date: 01/04/22 8:14:00 CATH LAB RADIOLOGICAL TECHNOLOGIST, 0 Fleet Enema 2022-0 No 133 mL, Mem oria 2-24 Route: [place], l 14:14: Drug Form: Syed 00 SANKET, Dosing Weight 73.8, kg, ONCE, Within 4 hours, Start date: 01/04/22 8:14:00 CATH LAB RADIOLOGICAL TECHNOLOGIST, Stop date: 01/04/22 8:14:00 CATH LAB RADIOLOGICAL TECHNOLOGIST, 0 Fleet Enema 2-0 No 133 mL, Mem oria 2-24 Route: [place], l 14:14: Drug Form: Constantia 00 SANKET, Dosing Weight 73.8, kg, ONCE, Within 4 hours, Start date: 01/04/22 8:14:00 CATH LAB RADIOLOGICAL TECHNOLOGIST, Stop date: 01/04/22 8:14:00 CATH LAB RADIOLOGICAL TECHNOLOGIST, 0 Fleet Enema 2021-0 No 133 mL, Mem oria 2-24 Route: [place], l 14:14: Drug Form: Syed 00 SANKET, Dosing Weight 73.8, kg, ONCE, Within 4 hours, Start date: 01/04/22 8:14:00 CATH LAB RADIOLOGICAL TECHNOLOGIST, Stop date: 01/04/22 8:14:00 CATH LAB RADIOLOGICAL TECHNOLOGIST, 0 Clonazepam No Notes: Memor ia 2-24 (Same As: l 08:01: KlonoPIN) Hazardous Drug Group 3:Reproduc tive risk Hazardous Drug -- Refer to safe handling procedure PPE Matrix Melatonin No Notes: Memori a 2-24 (Same as: l 08:01: Melatonin) Clonazepam No Notes: Memor ia 2-24 (Same As: l 08:01: KlonoPIN) Constantia 00 Hazardous Drug Group 3:Reproduc tive risk Hazardous Drug -- Refer to safe handling procedure PPE Matrix Melatonin No Notes: Memori a 2-24 (Same as: l 08:01: Melatonin) Syed 00 Clonazepam No Notes: Memor ia 2-24 (Same As: l 08:01: KlonoPIN) Constantia Hazardous Drug Group 3:Reproduc tive risk Hazardous Drug -- Refer to safe handling procedure PPE Matrix Melatonin No Notes: Memori a 2-24 (Same as: l 08:01: Melatonin) Constantia Clonazepam No Notes: Memor ia 2-24 (Same As: l 08:01: KlonoPIN) Constantia Hazardous Drug Group 3:Reproduc tive risk Hazardous Drug -- Refer to safe handling procedure PPE Matrix Melatonin No Notes: Memori a 2-24 (Same as: l 08:01: Melatonin) Constantia 00 Clonazepam No Notes: Memor ia 2-24 (Same As: l 08:01: KlonoPIN) Constantia 00 Hazardous Drug Group 3:Reproduc tive risk Hazardous Drug -- Refer to safe handling procedure PPE Matrix Melatonin No Notes: Memori a 2-24 (Same as: l 08:01: Melatonin) Syed Clonazepam No Notes: Memor ia 2-24 (Same As: l 08:01: KlonoPIN) Syed 00 Hazardous Drug Group 3:Reproduc tive risk Hazardous Drug -- Refer to safe handling procedure PPE Matrix Melatonin No Notes: Memori a 2-24 (Same as: l 08:01: Melatonin) Clonazepam No Notes: Memor ia 2-24 (Same As: l 08:01: KlonoPIN) Constantia 00 Hazardous Drug Group 3:Reproduc tive risk Hazardous Drug -- Refer to safe handling procedure PPE Matrix Melatonin No Notes: Memori a 2-24 (Same as: l 08:01: Melatonin) Clonazepam No Notes: Memor ia 2-24 (Same As: l 08:01: KlonoPIN) Syed 00 Hazardous Drug Group 3:Reproduc tive risk Hazardous Drug -- Refer to safe handling procedure PPE Matrix Melatonin No Notes: Memori a 2-24 (Same as: l 08:01: Melatonin) Constantia Clonazepam No Notes: Memor ia 2-24 (Same As: l 08:01: KlonoPIN) Constantia 00 Hazardous Drug Group 3:Reproduc tive risk Hazardous Drug -- Refer to safe handling procedure PPE Matrix Melatonin No Notes: Memori a 2-24 (Same as: l 08:01: Melatonin) Syed 00 Clonazepam No Notes: Memor ia 2-24 (Same As: l 08:01: KlonoPIN) Syed Hazardous Drug Group 3:Reproduc tive risk Hazardous Drug -- Refer to safe handling procedure PPE Matrix Melatonin No Notes: Memori a 2-24 (Same as: l 08:01: Melatonin) Syed 00 Clonazepam No Notes: Memor ia 2-24 (Same As: l 08:01: KlonoPIN) Syed 00 Hazardous Drug Group 3:Reproduc tive risk Hazardous Drug -- Refer to safe handling procedure PPE Matrix Melatonin No Notes: Memori a 2-24 (Same as: l 08:01: Melatonin) Constantia 00 Clonazepam No Notes: Memor ia 2-24 (Same As: l 08:01: KlonoPIN) Constantia 00 Hazardous Drug Group 3:Reproduc tive risk Hazardous Drug -- Refer to safe handling procedure PPE Matrix Melatonin No Notes: Memori a 2-24 (Same as: l 08:01: Melatonin) Constantia 00 Isolyte S No Notes: Memori a PH-7.4 2-24 (Same as: l (Bolus) IV 02:39: Isolyte S He rmann 00 PH7.4, Normosol-R PH 7.4, Plasma-Lyt e A ) Oxycodone No Notes: Memori a 2-24 (Same as: l 02:39: Roxicodone Syed ) Isolyte S No Notes: Memori a PH-7.4 2-24 (Same as: l (Bolus) IV 02:39: Isolyte S He rmann 00 PH7.4, Normosol-R PH 7.4, Plasma-Lyt e A ) Oxycodone No Notes: Memori a 2-24 (Same as: l 02:39: Roxicodone Syed ) Isolyte S No Notes: Memori a PH-7.4 2-24 (Same as: l (Bolus) IV 02:39: Isolyte S He rmann 00 PH7.4, Normosol-R PH 7.4, Plasma-Lyt e A ) Oxycodone No Notes: Memori a 2-24 (Same as: l 02:39: Roxicodone Syed ) Isolyte S No Notes: Memori a PH-7.4 2-24 (Same as: l (Bolus) IV 02:39: Isolyte S He rmann 00 PH7.4, Normosol-R PH 7.4, Plasma-Lyt e A ) Oxycodone 2021-0 No Notes: Memori a 2-24 (Same as: l 02:39: Roxicodone Syed 00 ) Isolyte S 0 No Notes: Memori a PH-7.4 2-24 (Same as: l (Bolus) IV 02:39: Isolyte S He rmann 00 PH7.4, Normosol-R PH 7.4, Plasma-Lyt e A ) Oxycodone 2021-0 No Notes: Memori a 2-24 (Same as: l 02:39: Roxicodone Constantia 00 ) Isolyte S 0 No Notes: Memori a PH-7.4 2-24 (Same as: l (Bolus) IV 02:39: Isolyte S He rmann 00 PH7.4, Normosol-R PH 7.4, Plasma-Lyt e A ) Oxycodone 2021-0 No Notes: Memori a 2-24 (Same as: l 02:39: Roxicodone Constantia 00 ) Isolyte S 0 No Notes: Memori a PH-7.4 2-24 (Same as: l (Bolus) IV 02:39: Isolyte S He rmann 00 PH7.4, Normosol-R PH 7.4, Plasma-Lyt e A ) Oxycodone 2021-0 No Notes: Memori a 2-24 (Same as: l 02:39: Roxicodone Syed 00 ) Isolyte S 0 No Notes: Memori a PH-7.4 2-24 (Same as: l (Bolus) IV 02:39: Isolyte S He rmann 00 PH7.4, Normosol-R PH 7.4, Plasma-Lyt e A ) Oxycodone 2021-0 No Notes: Memori a 2-24 (Same as: l 02:39: Roxicodone Syed 00 ) Isolyte S 0 No Notes: Memori a PH-7.4 2-24 (Same as: l (Bolus) IV 02:39: Isolyte S He rmann 00 PH7.4, Normosol-R PH 7.4, Plasma-Lyt e A ) Oxycodone 2021-0 No Notes: Memori a 2-24 (Same as: l 02:39: Roxicodone Constantia 00 ) Isolyte S 0 No Notes: Memori a PH-7.4 2-24 (Same as: l (Bolus) IV 02:39: Isolyte S He rmann 00 PH7.4, Normosol-R PH 7.4, Plasma-Lyt e A ) Oxycodone 2021-0 No Notes: Memori a 2-24 (Same as: l 02:39: Roxicodone Syed 00 ) Isolyte S 0 No Notes: Memori a PH-7.4 2-24 (Same as: l (Bolus) IV 02:39: Isolyte S He rmann 00 PH7.4, Normosol-R PH 7.4, Plasma-Lyt e A ) Oxycodone 2021-0 No Notes: Memori a 2-24 (Same as: l 02:39: Roxicodone Syed ) Isolyte S 0 No Notes: Memori a PH-7.4 2-24 (Same as: l (Bolus) IV 02:39: Isolyte S He rmann 00 PH7.4, Normosol-R PH 7.4, Plasma-Lyt e A ) Oxycodone 2021-0 No Notes: Memori a 2-24 (Same as: l 02:39: Roxicodone Constantia 00 ) Famotidine 0 No Notes: Memor ia 2-24 (Same as: l 01:17: Pepcid) Syed 00 Famotidine 2021-0 No Notes: Memor ia 2-24 (Same as: l 01:17: Pepcid) Constantia Famotidine 2021-0 No Notes: Memor ia 2-24 (Same as: l 01:17: Pepcid) Constantia 00 Famotidine 2021-0 No Notes: Memor ia 2-24 (Same as: l 01:17: Pepcid) Constantia Famotidine 0 No Notes: Memor ia 2-24 (Same as: l 01:17: Pepcid) Constantia 00 Famotidine No Notes: Memor ia 2-24 (Same as: l 01:17: Pepcid) Syed Famotidine No Notes: Memor ia 2-24 (Same as: l 01:17: Pepcid) Constantia Famotidine No Notes: Memor ia 2-24 (Same as: l 01:17: Pepcid) Syed Famotidine No Notes: Memor ia 2-24 (Same as: l 01:17: Pepcid) Constantia Famotidine No Notes: Memor ia 2-24 (Same as: l 01:17: Pepcid) Constantia Famotidine No Notes: Memor ia 2-24 (Same as: l 01:17: Pepcid) Constantia Famotidine No Notes: Memor ia 2-24 (Same as: l 01:17: Pepcid) Constantia Zofran 2021-0 No 4 mg, Memoria 2-24 Route: l 00:33: IVP, Drug Syed 00 form: INJ, ONCE, Dosing Weight 73.8, kg, Start date: 01/03/22 18:33:00 CATH LAB RADIOLOGICAL TECHNOLOGIST, Stop date: 01/03/22 18:33:00 CATH LAB RADIOLOGICAL TECHNOLOGIST Zofran 2-0 No 4 mg, Memoria 2-24 Route: l 00:33: IVP, Drug Constantia 00 form: INJ, ONCE, Dosing Weight 73.8, kg, Start date: 01/03/22 18:33:00 CATH LAB RADIOLOGICAL TECHNOLOGIST, Stop date: 01/03/22 18:33:00 CATH LAB RADIOLOGICAL TECHNOLOGIST Zofran 2-0 No 4 mg, Memoria 2-24 Route: l 00:33: IVP, Drug Syed 00 form: INJ, ONCE, Dosing Weight 73.8, kg, Start date: 01/03/22 18:33:00 CATH LAB RADIOLOGICAL TECHNOLOGIST, Stop date: 01/03/22 18:33:00 CATH LAB RADIOLOGICAL TECHNOLOGIST Zofran 2-0 No 4 mg, Memoria 2-24 Route: l 00:33: IVP, Drug Syed 00 form: INJ, ONCE, Dosing Weight 73.8, kg, Start date: 01/03/22 18:33:00 CATH LAB RADIOLOGICAL TECHNOLOGIST, Stop date: 01/03/22 18:33:00 CATH LAB RADIOLOGICAL TECHNOLOGIST Zofran 2022-0 No 4 mg, Memoria 2-24 Route: l 00:33: IVP, Drug Syed 00 form: INJ, ONCE, Dosing Weight 73.8, kg, Start date: 01/03/22 18:33:00 CATH LAB RADIOLOGICAL TECHNOLOGIST, Stop date: 01/03/22 18:33:00 CATH LAB RADIOLOGICAL TECHNOLOGIST Zofran 2022-0 No 4 mg, Memoria 2-24 Route: l 00:33: IVP, Drug Constantia 00 form: INJ, ONCE, Dosing Weight 73.8, kg, Start date: 01/03/22 18:33:00 CATH LAB RADIOLOGICAL TECHNOLOGIST, Stop date: 01/03/22 18:33:00 CATH LAB RADIOLOGICAL TECHNOLOGIST Zofran 2022-0 No 4 mg, Memoria 2-24 Route: l 00:33: IVP, Drug Constantia 00 form: INJ, ONCE, Dosing Weight 73.8, kg, Start date: 01/03/22 18:33:00 CATH LAB RADIOLOGICAL TECHNOLOGIST, Stop date: 01/03/22 18:33:00 CATH LAB RADIOLOGICAL TECHNOLOGIST Zofran 2022-0 No 4 mg, Memoria 2-24 Route: l 00:33: IVP, Drug Constantia 00 form: INJ, ONCE, Dosing Weight 73.8, kg, Start date: 01/03/22 18:33:00 CATH LAB RADIOLOGICAL TECHNOLOGIST, Stop date: 01/03/22 18:33:00 CATH LAB RADIOLOGICAL TECHNOLOGIST Zofran 2022-0 No 4 mg, [facility] 2-24 Route: l 00:33: IVP, Drug Constantia 00 form: INJ, ONCE, Dosing Weight 73.8, kg, Start date: 01/03/22 18:33:00 CATH LAB RADIOLOGICAL TECHNOLOGIST, Stop date: 01/03/22 18:33:00 CATH LAB RADIOLOGICAL TECHNOLOGIST Zofran 2022-0 No 4 mg, [facility] 2-24 Route: l 00:33: IVP, Drug Constantia 00 form: INJ, ONCE, Dosing Weight 73.8, kg, Start date: 01/03/22 18:33:00 CATH LAB RADIOLOGICAL TECHNOLOGIST, Stop date: 01/03/22 18:33:00 CATH LAB RADIOLOGICAL TECHNOLOGIST Zofran 2022-0 No 4 mg, [facility] 2-24 Route: l 00:33: IVP, Drug Constantia 00 form: INJ, ONCE, Dosing Weight 73.8, kg, Start date: 01/03/22 18:33:00 CATH LAB RADIOLOGICAL TECHNOLOGIST, Stop date: 01/03/22 18:33:00 CATH LAB RADIOLOGICAL TECHNOLOGIST Zofran No 4 mg, [facility] 2-24 Route: l 00:33: IVP, Drug form: INJ, ONCE, Dosing Weight 73.8, kg, Start date: 01/03/22 18:33:00 CATH LAB RADIOLOGICAL TECHNOLOGIST, Stop date: 01/03/22 18:33:00 CATH LAB RADIOLOGICAL TECHNOLOGIST Enoxaparin No Notes: Memor ia 2-23 (Same as: l 22:00: Lovenox) Enoxaparin No Notes: [facility] 2-23 (Same as: l 22:00: Lovenox) Enoxaparin No Notes: [facility] 2-23 (Same as: l 22:00: Lovenox) Enoxaparin No Notes: [facility] 2-23 (Same as: l 22:00: Lovenox) Enoxaparin No Notes: [facility] 2-23 (Same as: l 22:00: Lovenox) Enoxaparin No Notes: [facility] 2-23 (Same as: l 22:00: Lovenox) Enoxaparin No Notes: [facility] 2-23 (Same as: l 22:00: Lovenox) Enoxaparin No Notes: [facility] 2-23 (Same as: l 22:00: Lovenox) Enoxaparin No Notes: [facility] 2-23 (Same as: l 22:00: Lovenox) Enoxaparin 0 No Notes: [facility] 2-23 (Same as: l 22:00: Lovenox) Enoxaparin 0 No Notes: [facility] 2-23 (Same as: l 22:00: Lovenox) Enoxaparin 0 No Notes: [facility] 2-23 (Same as: l 22:00: Lovenox) Clonazepam 2022-0 No Notes: [facility] 2-23 (Same As: l 16:00: KlonoPIN) [facility] 3:Reproduc tive risk Hazardous Drug -- Refer to safe handling procedure [facility] [employer] Clonazepam 2022-0 No Notes: [facility] 2-23 (Same As: l 16:00: KlonoPIN) Hazardous Drug Group 3:Reproduc tive risk Hazardous Drug -- Refer to safe handling procedure PPE [employer] Clonazepam 2022-0 No Notes: [facility] 2-23 (Same As: l 16:00: KlonoPIN) Hazardous Drug Group 3:Reproduc tive risk Hazardous Drug -- Refer to safe handling procedure PPE [employer] Clonazepam 2-0 No Notes: [facility] 2-23 (Same As: l 16:00: KlonoPIN) Hazardous Drug Group 3:Reproduc tive risk Hazardous Drug -- Refer to safe handling procedure PPE [employer] Clonazepam 2-0 No Notes: [facility] 2-23 (Same As: l 16:00: KlonoPIN) Hazardous Drug Group 3:Reproduc tive risk Hazardous Drug -- Refer to safe handling procedure PPE [employer] Clonazepam 2-0 No Notes: [facility] 2-23 (Same As: l 16:00: KlonoPIN) [facility] Drug Group 3:Reproduc tive risk Hazardous Drug -- Refer to safe handling procedure PPE [facility] Clonazepam 2-0 No Notes: Memor ia 2-23 (Same As: l 16:00: KlonoPIN) Hazardous Drug Group 3:Reproduc tive risk Hazardous Drug -- Refer to safe handling procedure PPE [facility] Clonazepam 2-0 No Notes: Memor ia 2-23 (Same As: l 16:00: KlonoPIN) Hazardous Drug Group 3:Reproduc tive risk Hazardous Drug -- Refer to safe handling procedure PPE [facility] Clonazepam 2022-0 No Notes: Memor ia 2-23 (Same As: l 16:00: KlonoPIN) Hazardous Drug Group 3:Reproduc tive risk Hazardous Drug -- Refer to safe handling procedure PPE [facility] Clonazepam 2022-0 No Notes: Memor ia 2-23 (Same As: l 16:00: KlonoPIN) Hazardous Drug Group 3:Reproduc tive risk Hazardous Drug -- Refer to safe handling procedure PPE [facility] Clonazepam 2021-0 No Notes: Memor ia 2-23 (Same As: l 16:00: KlonoPIN) Syed 00 Hazardous Drug Group 3:Reproduc tive risk Hazardous Drug -- Refer to safe handling procedure PPE [facility] Clonazepam 2021-0 No Notes: Memor ia 2-23 (Same As: l 16:00: KlonoPIN) Syed 00 Hazardous Drug Group 3:Reproduc tive risk Hazardous Drug -- Refer to safe handling procedure PPE [facility] Zofran 2021-0 No Notes: [facility] 2-23 (Same as: l 15:53: Zofran) Syed 00 MEDICATION WASTE Product Size: 4 mg Product Wasted: ___ mg Zofran 2021-0 No Notes: [facility] 2-23 (Same as: l 15:53: Zofran) Syed 00 MEDICATION WASTE Product Size: 4 mg Product Wasted: ___ mg Zofran 2021-0 No Notes: [facility] 2-23 (Same as: l 15:53: Zofran) Syde 00 MEDICATION WASTE Product Size: 4 mg Product Wasted: ___ mg Zofran 2021-0 No Notes: [facility] 2-23 (Same as: l 15:53: Zofran) Syed 00 MEDICATION WASTE Product Size: 4 mg Product Wasted: ___ mg Zofran 2021-0 No Notes: [facility] 2-23 (Same as: l 15:53: Zofran) Syed 00 MEDICATION WASTE Product Size: 4 mg Product Wasted: ___ mg Zofran 2021-0 No Notes: [facility] 2-23 (Same as: l 15:53: Zofran) Syed 00 MEDICATION WASTE Product Size: 4 mg Product Wasted: ___ mg Zofran 2021-0 No Notes: [facility] 2-23 (Same as: l 15:53: Zofran) Syed 00 MEDICATION WASTE Product Size: 4 mg Product Wasted: ___ mg Zofran 2021-0 No Notes: [facility] 2-23 (Same as: l 15:53: Zofran) Constantia 00 MEDICATION WASTE Product Size: 4 mg Product Wasted: ___ mg Zofran 2021-0 No Notes: [facility] 2-23 (Same as: l 15:53: Zofran) Syed 00 MEDICATION WASTE Product Size: 4 mg Product Wasted: ___ mg Zofran 2021-0 No Notes: [facility] 2-23 (Same as: l 15:53: Zofran) Syed 00 MEDICATION WASTE Product Size: 4 mg Product Wasted: ___ mg Zofran 2021-0 No Notes: [facility] 2-23 (Same as: l 15:53: Zofran) Syed 00 MEDICATION WASTE Product Size: 4 mg Product Wasted: ___ mg Zofran 2021-0 No Notes: [facility] 2-23 (Same as: l 15:53: Zofran) Constantia 00 MEDICATION WASTE Product Size: 4 mg Product Wasted: ___ mg Naproxen 2021-0 No Notes: [facility] 2-23 (Same as: l 15:28: Naprosyn) Syed 00 Take with food. Naproxen 2021-0 No Notes: [facility] 2-23 (Same as: l 15:28: Naprosyn) Constantia 00 Take with food. Naproxen 2021-0 No Notes: [facility] 2-23 (Same as: l 15:28: Naprosyn) Constantia 00 Take with food. Naproxen 2021-0 No Notes: [facility] 2-23 (Same as: l 15:28: Naprosyn) Syed 00 Take with food. Naproxen 2021-0 No Notes: [facility] 2-23 (Same as: l 15:28: Naprosyn) Constantia 00 Take with food. Naproxen 2021-0 No Notes: [facility] 2-23 (Same as: l 15:28: Naprosyn) Constantia 00 Take with food. Naproxen 2021-0 No Notes: [facility] 2-23 (Same as: l 15:28: Naprosyn) Syed 00 Take with food. Naproxen 2021-0 No Notes: [facility]oria 2-23 (Same as: l 15:28: Naprosyn) Syed 00 Take with food. Naproxen 0 No Notes: [facility] 2-23 (Same as: l 15:28: Naprosyn) Constantia Take with food. Naproxen 0 No Notes: [facility] 2-23 (Same as: l 15:28: Naprosyn) Syed 00 Take with food. Naproxen 0 No Notes: [facility] 2-23 (Same as: l 15:28: Naprosyn) Syed Take with food. Naproxen 0 No Notes: [facility] 2-23 (Same as: l 15:28: Naprosyn) Constantia 00 Take with food. Robaxin No Notes: [facility] 2-23 (Same l 15:00: as:Robaxin Constantia 00 ) Robaxin 0 No Notes: [facility] 2-23 (Same l 15:00: as:Robaxin Constantia 00 ) Robaxin 0 No Notes: [facility] 2-23 (Same l 15:00: as:Robaxin Syed 00 ) Robaxin 0 No Notes: [facility] 2-23 (Same l 15:00: as:Robaxin Constantia 00 ) Robaxin 0 No Notes: [facility] 2-23 (Same l 15:00: as:Robaxin Syed 00 ) Robaxin 0 No Notes: [facility] 2-23 (Same l 15:00: as:Robaxin Constantia 00 ) Robaxin 0 No Notes: [facility] 2-23 (Same l 15:00: as:Robaxin Constantia 00 ) Robaxin 0 No Notes: [facility] 2-23 (Same l 15:00: as:Robaxin Syed 00 ) Robaxin 0 No Notes: [facility] 2-23 (Same l 15:00: as:Robaxin Constantia 00 ) Robaxin 0 No Notes: [facility] 2-23 (Same l 15:00: as:Robaxin Constantia 00 ) Robaxin 0 No Notes: [facility] 2-23 (Same l 15:00: as:Robaxin Constantia 00 ) Robaxin 0 No Notes: [facility] 2-23 (Same l 15:00: as:Robaxin Syed 00 ) Robaxin 0 No Notes: [facility] 2-23 (Same l 14:00: as:Robaxin Constantia 00 ) Robaxin 0 No Notes: [facility] 2-23 (Same l 14:00: as:Robaxin Constantia 00 ) Robaxin 0 No Notes: [facility] 2-23 (Same l 14:00: as:Robaxin Constantia 00 ) Robaxin 0 No Notes: [facility] 2-23 (Same l 14:00: as:Robaxin Constantia 00 ) Robaxin 0 No Notes: [facility] 2-23 (Same l 14:00: as:Robaxin Constantia 00 ) Robaxin 0 No Notes: [facility] 2-23 (Same l 14:00: as:Robaxin Constantia 00 ) Robaxin 0 No Notes: [facility] 2-23 (Same l 14:00: as:Robaxin Syed 00 ) Robaxin 0 No Notes: [facility] 2-23 (Same l 14:00: as:Robaxin Constantia 00 ) Robaxin 0 No Notes: [facility] 2-23 (Same l 14:00: as:Robaxin Constantia 00 ) Robaxin 0 No Notes: [facility] 2-23 (Same l 14:00: as:Robaxin Syed 00 ) Robaxin 0 No Notes: [facility] 2-23 (Same l 14:00: as:Robaxin Syed 00 ) Robaxin 0 No Notes: [facility] 2-23 (Same l 14:00: as:Robaxin Syed 00 ) Isolyte S No Notes: Memori a PH-7.4 2-23 (Same as: l (Bolus) IV 12:06: Isolyte S He rmann 00 PH7.4, Normosol-R PH 7.4, Plasma-Lyt e A ) Isolyte S 0 No Notes: Memori a PH-7.4 2-23 (Same as: l (Bolus) IV 12:06: Isolyte S He rmann 00 PH7.4, Normosol-R PH 7.4, Plasma-Lyt e A ) Isolyte S 0 No Notes: Memori a PH-7.4 2-23 (Same as: l (Bolus) IV 12:06: Isolyte S He rmann 00 PH7.4, Normosol-R PH 7.4, Plasma-Lyt e A ) Isolyte S 0 No Notes: Memori a PH-7.4 2-23 (Same as: l (Bolus) IV 12:06: Isolyte S He rmann 00 PH7.4, Normosol-R PH 7.4, Plasma-Lyt e A ) Isolyte S No Notes: Memori a PH-7.4 2-23 (Same as: l (Bolus) IV 12:06: Isolyte S He rmann 00 PH7.4, Normosol-R PH 7.4, Plasma-Lyt e A ) Isolyte S No Notes: Memori a PH-7.4 2-23 (Same as: l (Bolus) IV 12:06: Isolyte S He rmann 00 PH7.4, Normosol-R PH 7.4, Plasma-Lyt e A ) Isolyte S No Notes: Memori a PH-7.4 2-23 (Same as: l (Bolus) IV 12:06: Isolyte S He rmann 00 PH7.4, Normosol-R PH 7.4, Plasma-Lyt e A ) Isolyte S No Notes: Memori a PH-7.4 2-23 (Same as: l (Bolus) IV 12:06: Isolyte S He rmann 00 PH7.4, Normosol-R PH 7.4, Plasma-Lyt e A ) Isolyte S No Notes: Memori a PH-7.4 2-23 (Same as: l (Bolus) IV 12:06: Isolyte S He rmann 00 PH7.4, Normosol-R PH 7.4, Plasma-Lyt e A ) Isolyte S 0 No Notes: Memori a PH-7.4 2-23 (Same as: l (Bolus) IV 12:06: Isolyte S He rmann 00 PH7.4, Normosol-R PH 7.4, Plasma-Lyt e A ) Isolyte S No Notes: Memori a PH-7.4 2-23 (Same as: l (Bolus) IV 12:06: Isolyte S He rmann 00 PH7.4, Normosol-R PH 7.4, Plasma-Lyt e A ) Isolyte S 0 No Notes: Memori a PH-7.4 2-23 (Same as: l (Bolus) IV 12:06: Isolyte S He rmann 00 PH7.4, Normosol-R PH 7.4, Plasma-Lyt e A ) Robaxin No Notes: [facility] 2-23 (Same l 06:00: as:Robaxin Syed 00 ) Robaxin 0 No Notes: [facility] 2-23 (Same l 06:00: as:Robaxin Syed 00 ) Robaxin No Notes: [facility] 2-23 (Same l 06:00: as:Robaxin Syed 00 ) Robaxin No Notes: [facility] 2-23 (Same l 06:00: as:Robaxin Syed ) Robaxin 0 No Notes: [facility] 2-23 (Same l 06:00: as:Robaxin Syed 00 ) Robaxin 0 No Notes: [facility] 2-23 (Same l 06:00: as:Robaxin Syed 00 ) Robaxin 0 No Notes: [facility] 2-23 (Same l 06:00: as:Robaxin Syed 00 ) Robaxin 0 No Notes: [facility] 2-23 (Same l 06:00: as:Robaxin Constantia 00 ) Robaxin 0 No Notes: [facility] 2-23 (Same l 06:00: as:Robaxin Constantia 00 ) Robaxin 0 No Notes: [facility] 2-23 (Same l 06:00: as:Robaxin Syed 00 ) Robaxin 0 No Notes: [facility] 2-23 (Same l 06:00: as:Robaxin Constantia 00 ) Robaxin 0 No Notes: [facility] 2-23 (Same l 06:00: as:Robaxin Constantia 00 ) Robaxin 0 No Notes: [facility] 2-23 (Same l 03:49: as:Robaxin Syed 00 ) Robaxin 0 No Notes: [facility] 2-23 (Same l 03:49: as:Robaxin Constantia 00 ) Robaxin 0 No Notes: [facility] 2-23 (Same l 03:49: as:Robaxin Syed 00 ) Robaxin 0 No Notes: [facility] 2-23 (Same l 03:49: as:Robaxin Constantia 00 ) Robaxin 0 No Notes: [facility] 2-23 (Same l 03:49: as:Robaxin Syed 00 ) Robaxin 0 No Notes: [facility] 2-23 (Same l 03:49: as:Robaxin Syed 00 ) Robaxin 0 No Notes: [facility] 2-23 (Same l 03:49: as:Robaxin Syed 00 ) Robaxin No Notes: [facility] 2-23 (Same l 03:49: as:Robaxin Syed 00 ) Robaxin No Notes: [facility] 2-23 (Same l 03:49: as:Robaxin Syed 00 ) Robaxin 0 No Notes: [facility] 2-23 (Same l 03:49: as:Robaxin Constantia 00 ) Robaxin 0 No Notes: [facility]oria 2-23 (Same l 03:49: as:Robaxin Syed 00 ) Robaxin No Notes: [facility] 2-23 (Same l 03:49: as:Robaxin Constantia 00 ) Miralax No Notes: [facility]oria 2-23 Dissolve l 03:00: in 8 oz of Constantia 00 water or juice. (Same as: Miralax) Miralax 0 No Notes: [facility]oria 2-23 Dissolve l 03:00: in 8 oz of Constantia 00 water or juice. (Same as: Miralax) Miralax 2021-0 No Notes: [facility] 2-23 Dissolve l 03:00: in 8 oz of Syed 00 water or juice. (Same as: Miralax) Miralax 0 No Notes: [facility] 2-23 Dissolve l 03:00: in 8 oz of Syed 00 water or juice. (Same as: Miralax) Miralax 0 No Notes: [facility] 2-23 Dissolve l 03:00: in 8 oz of Constantia 00 water or juice. (Same as: Miralax) Miralax No Notes: [facility]oria 2-23 Dissolve l 03:00: in 8 oz of Syed 00 water or juice. (Same as: Miralax) Miralax No Notes: [facility] 2-23 Dissolve l 03:00: in 8 oz of Syed 00 water or juice. (Same as: Miralax) Miralax No Notes: [facility] 2-23 Dissolve l 03:00: in 8 oz of Constantia 00 water or juice. (Same as: Miralax) Miralax No Notes: [facility] 2-23 Dissolve l 03:00: in 8 oz of Constantia 00 water or juice. (Same as: Miralax) Miralax No Notes: [facility] 2-23 Dissolve l 03:00: in 8 oz of Constantia 00 water or juice. (Same as: Miralax) Miralax No Notes: [facility]oria 2-23 Dissolve l 03:00: in 8 oz of Constantia 00 water or juice. (Same as: Miralax) Miralax No Notes: [facility]oria 2-23 Dissolve l 03:00: in 8 oz of Constantia 00 water or juice. (Same as: Miralax) Oxycodone 2021-0 No 5 mg, Memoria 2-23 Route: PO, l 01:58: Drug form: Syde 00 TAB, ONCE, Dosing Weight 73.8, kg, PRN Pain Score 4-6, Start date: 01/02/22 19:58:00 CATH LAB RADIOLOGICAL TECHNOLOGIST Oxycodone 2021-0 No 5 mg, Memoria 2-23 Route: PO, l 01:58: Drug form: Syed 00 TAB, ONCE, Dosing Weight 73.8, kg, PRN Pain Score 4-6, Start date: 01/02/22 19:58:00 CATH LAB RADIOLOGICAL TECHNOLOGIST Oxycodone 2-0 No 5 mg, Memoria 2-23 Route: PO, l 01:58: Drug form: Syed 00 TAB, ONCE, Dosing Weight 73.8, kg, PRN Pain Score 4-6, Start date: 01/02/22 19:58:00 CATH LAB RADIOLOGICAL TECHNOLOGIST Oxycodone 2021-0 No 5 mg, Memoria 2-23 Route: PO, l 01:58: Drug form: Syed 00 TAB, ONCE, Dosing Weight 73.8, kg, PRN Pain Score 4-6, Start date: 01/02/22 19:58:00 CATH LAB RADIOLOGICAL TECHNOLOGIST Oxycodone 2022-0 No 5 mg, Memoria 2-23 Route: PO, l 01:58: Drug form: Syed 00 TAB, ONCE, Dosing Weight 73.8, kg, PRN Pain Score 4-6, Start date: 01/02/22 19:58:00 CATH LAB RADIOLOGICAL TECHNOLOGIST Oxycodone 2022-0 No 5 mg, Memoria 2-23 Route: PO, l 01:58: Drug form: Constantia 00 TAB, ONCE, Dosing Weight 73.8, kg, PRN Pain Score 4-6, Start date: 01/02/22 19:58:00 CATH LAB RADIOLOGICAL TECHNOLOGIST Oxycodone 2022-0 No 5 mg, Memoria 2-23 Route: PO, l 01:58: Drug form: Syed 00 TAB, ONCE, Dosing Weight 73.8, kg, PRN Pain Score 4-6, Start date: 01/02/22 19:58:00 CATH LAB RADIOLOGICAL TECHNOLOGIST Oxycodone 2022-0 No 5 mg, Memoria 2-23 Route: PO, l 01:58: Drug form: Constantia 00 TAB, ONCE, Dosing Weight 73.8, kg, PRN Pain Score 4-6, Start date: 01/02/22 19:58:00 CATH LAB RADIOLOGICAL TECHNOLOGIST Oxycodone 2022-0 No 5 mg, Memoria 2-23 Route: PO, l 01:58: Drug form: Constantia 00 TAB, ONCE, Dosing Weight 73.8, kg, PRN Pain Score 4-6, Start date: 01/02/22 19:58:00 CATH LAB RADIOLOGICAL TECHNOLOGIST Oxycodone 2022-0 No 5 mg, Memoria 2-23 Route: PO, l 01:58: Drug form: Syed 00 TAB, ONCE, Dosing Weight 73.8, kg, PRN Pain Score 4-6, Start date: 01/02/22 19:58:00 CATH LAB RADIOLOGICAL TECHNOLOGIST Oxycodone 2022-0 No 5 mg, Memoria 2-23 Route: PO, l 01:58: Drug form: Syed 00 TAB, ONCE, Dosing Weight 73.8, kg, PRN Pain Score 4-6, Start date: 01/02/22 19:58:00 CATH LAB RADIOLOGICAL TECHNOLOGIST Oxycodone No 5 mg, Memoria 2-23 Route: PO, l 01:58: Drug form: TAB, ONCE, Dosing Weight 73.8, kg, PRN Pain Score 4-6, Start date: 01/02/22 19:58:00 CATH LAB RADIOLOGICAL TECHNOLOGIST gabapentin No Notes: Memor ia 300 MG Oral 2-22 (Same as: l Capsule 22:00: Neurontin) gabapentin No Notes: Memor ia 300 MG Oral 2-22 (Same as: l Capsule 22:00: Neurontin) gabapentin No Notes: Memor ia 300 MG Oral 2-22 (Same as: l Capsule 22:00: Neurontin) [facility] gabapentin No Notes: Memor ia 300 MG Oral 2-22 (Same as: l Capsule 22:00: Neurontin) [facility] gabapentin No Notes: Memor ia 300 MG Oral 2-22 (Same as: l Capsule 22:00: Neurontin) [facility] gabapentin No Notes: Memor ia 300 MG Oral 2-22 (Same as: l Capsule 22:00: Neurontin) [facility] gabapentin No Notes: Memor ia 300 MG Oral 2-22 (Same as: l Capsule 22:00: Neurontin) [facility] gabapentin No Notes: Memor ia 300 MG Oral 2-22 (Same as: l Capsule 22:00: Neurontin) [facility] gabapentin No Notes: Memor ia 300 MG Oral 2-22 (Same as: l Capsule 22:00: Neurontin) [facility] gabapentin No Notes: Memor ia 300 MG Oral 2-22 (Same as: l Capsule 22:00: Neurontin) [facility] gabapentin No Notes: Memor ia 300 MG Oral 2-22 (Same as: l Capsule 22:00: Neurontin) [facility] gabapentin No Notes: Memor ia 300 MG Oral 2-22 (Same as: l Capsule 22:00: Neurontin) [facility] Oxycodone No Notes: Memori a 2-22 (Same as: l 19:46: Roxicodone Constantia 00 ) Oxycodone 2021-0 No Notes: Memori a 2-22 (Same as: l 19:46: Roxicodone Constantia 00 ) Oxycodone 0 No Notes: Memori a 2-22 (Same as: l 19:46: Roxicodone Constantia 00 ) Oxycodone 0 No Notes: Memori a 2-22 (Same as: l 19:46: Roxicodone Constantia 00 ) Oxycodone 0 No Notes: Memori a 2-22 (Same as: l 19:46: Roxicodone Constantia 00 ) Oxycodone 0 No Notes: Memori a 2-22 (Same as: l 19:46: Roxicodone Constantia 00 ) Oxycodone 0 No Notes: Memori a 2-22 (Same as: l 19:46: Roxicodone Constantia ) Oxycodone 0 No Notes: Memori a 2-22 (Same as: l 19:46: Roxicodone Syed 00 ) Oxycodone 0 No Notes: Memori a 2-22 (Same as: l 19:46: Roxicodone Syed 00 ) Oxycodone 0 No Notes: Memori a 2-22 (Same as: l 19:46: Roxicodone Syed 00 ) Oxycodone 0 No Notes: Memori a 2-22 (Same as: l 19:46: Roxicodone Constantia ) Oxycodone 0 No Notes: Memori a 2-22 (Same as: l 19:46: Roxicodone Constantia 00 ) Isolyte S No Notes: Memori a PH 7.4 2-22 (Same as: l 1,000 mL 15:12: Isolyte S Herm chandu 00 PH7.4, Normosol-R PH 7.4, Plasma-Lyt e A ) Isolyte S No Notes: Memori a PH 7.4 2-22 (Same as: l 1,000 mL 15:12: Isolyte S Herm chandu 00 PH7.4, Normosol-R PH 7.4, Plasma-Lyt e A ) Isolyte S No Notes: Memori a PH 7.4 2-22 (Same as: l 1,000 mL 15:12: Isolyte S Herm chandu 00 PH7.4, Normosol-R PH 7.4, Plasma-Lyt e A ) Isolyte S No Notes: Memori a PH 7.4 2-22 (Same as: l 1,000 mL 15:12: Isolyte S Herm chandu 00 PH7.4, Normosol-R PH 7.4, Plasma-Lyt e A ) Isolyte S No Notes: Memori a PH 7.4 2-22 (Same as: l 1,000 mL 15:12: Isolyte S Herm chandu 00 PH7.4, Normosol-R PH 7.4, Plasma-Lyt e A ) Isolyte S No Notes: Memori a PH 7.4 2-22 (Same as: l 1,000 mL 15:12: Isolyte S Herm chandu 00 PH7.4, Normosol-R PH 7.4, Plasma-Lyt e A ) Isolyte S No Notes: Memori a PH 7.4 2-22 (Same as: l 1,000 mL 15:12: Isolyte S Herm chandu 00 PH7.4, Normosol-R PH 7.4, Plasma-Lyt e A ) Isolyte S No Notes: Memori a PH 7.4 2-22 (Same as: l 1,000 mL 15:12: Isolyte S Herm chandu 00 PH7.4, Normosol-R PH 7.4, Plasma-Lyt e A ) Isolyte S No Notes: Memori a PH 7.4 2-22 (Same as: l 1,000 mL 15:12: Isolyte S Herm chandu 00 PH7.4, Normosol-R PH 7.4, Plasma-Lyt e A ) Isolyte S No Notes: Memori a PH 7.4 2-22 (Same as: l 1,000 mL 15:12: Isolyte S Herm chandu 00 PH7.4, Normosol-R PH 7.4, Plasma-Lyt e A ) Isolyte S No Notes: Memori a PH 7.4 2-22 (Same as: l 1,000 mL 15:12: Isolyte S Herm chandu 00 PH7.4, Normosol-R PH 7.4, Plasma-Lyt e A ) Isolyte S No Notes: Memori a PH 7.4 2-22 (Same as: l 1,000 mL 15:12: Isolyte S Herm chandu 00 PH7.4, Normosol-R PH 7.4, Plasma-Lyt e A ) Docusate No Notes: Memoria Sodium 50 2-22 (Same as l MG / 15:00: Senokot-S) Constantia sennosides, 00 Equiv. to CARE HOME 8.6 MG Jacinta-Colac Oral Tablet e. Amiodarone No Notes: Memor ia 2-22 (Same as: l 15:00: Cordarone) Syed 00 Potassium No 40 mEq, 30 Me moria Chloride 2-22 mL, Route: l 1.33 MEQ/ML 15:00: PO, Drug He rmann Oral 00 form: LIQ, Solution Daily, Dosing Weight 54.682, kg, Start date: 01/02/22 9:00:00 CATH LAB RADIOLOGICAL TECHNOLOGIST, Duration: 30 day, Stop date: 01/31/22 9:00:00 CDT Docusate No Notes: Memoria Sodium 50 2-22 (Same as l MG / 15:00: Senokot-S) Constantia sennosides, 00 Equiv. to CARE HOME 8.6 MG Jacinta-Colac Oral Tablet e. Amiodarone No Notes: Memor ia 2-22 (Same as: l 15:00: Cordarone) Syed 00 Potassium No 40 mEq, 30 Me moria Chloride 2-22 mL, Route: l 1.33 MEQ/ML 15:00: PO, Drug He rmann Oral 00 form: LIQ, Solution Daily, Dosing Weight 54.682, kg, Start date: 01/02/22 9:00:00 CATH LAB RADIOLOGICAL TECHNOLOGIST, Duration: 30 day, Stop date: 01/31/22 9:00:00 CDT Docusate No Notes: Memoria Sodium 50 2-22 (Same as l MG / 15:00: Senokot-S) Constantia sennosides, 00 Equiv. to CARE HOME 8.6 MG Jacinta-Colac Oral Tablet e. Amiodarone No Notes: Memor ia 2-22 (Same as: l 15:00: Cordarone) Constantia 00 Potassium No 40 mEq, 30 Me moria Chloride 2-22 mL, Route: l 1.33 MEQ/ML 15:00: PO, Drug He rmann Oral 00 form: LIQ, Solution Daily, Dosing Weight 54.682, kg, Start date: 01/02/22 9:00:00 CATH LAB RADIOLOGICAL TECHNOLOGIST, Duration: 30 day, Stop date: 01/31/22 9:00:00 CDT Docusate No Notes: Memoria Sodium 50 2-22 (Same as l MG / 15:00: Senokot-S) Syed sennosides, 00 Equiv. to CARE HOME 8.6 MG Jacinta-Colac Oral Tablet e. Amiodarone No Notes: Memor ia 2-22 (Same as: l 15:00: Cordarone) Constantia Potassium No 40 mEq, 30 Me moria Chloride 2-22 mL, Route: l 1.33 MEQ/ML 15:00: PO, Drug He rmann Oral 00 form: LIQ, Solution Daily, Dosing Weight 54.682, kg, Start date: 01/02/22 9:00:00 CATH LAB RADIOLOGICAL TECHNOLOGIST, Duration: 30 day, Stop date: 01/31/22 9:00:00 CDT Docusate No Notes: Memoria Sodium 50 2-22 (Same as l MG / 15:00: Senokot-S) Constantia sennosides, 00 Equiv. to CARE HOME 8.6 MG Jacinta-Colac Oral Tablet e. Amiodarone No Notes: Memor ia 2-22 (Same as: l 15:00: Cordarone) Syed Potassium No 40 mEq, 30 Me moria Chloride 2-22 mL, Route: l 1.33 MEQ/ML 15:00: PO, Drug He rmann Oral 00 form: LIQ, Solution Daily, Dosing Weight 54.682, kg, Start date: 01/02/22 9:00:00 CATH LAB RADIOLOGICAL TECHNOLOGIST, Duration: 30 day, Stop date: 01/31/22 9:00:00 CDT Docusate No Notes: Memoria Sodium 50 2-22 (Same as l MG / 15:00: Senokot-S) Syed sennosides, 00 Equiv. to CARE HOME 8.6 MG Jacinta-Colac Oral Tablet e. Amiodarone No Notes: Memor ia 2-22 (Same as: l 15:00: Cordarone) Syed 00 Potassium No 40 mEq, 30 Me moria Chloride 2-22 mL, Route: l 1.33 MEQ/ML 15:00: PO, Drug He rmann Oral 00 form: LIQ, Solution Daily, Dosing Weight 54.682, kg, Start date: 01/02/22 9:00:00 CATH LAB RADIOLOGICAL TECHNOLOGIST, Duration: 30 day, Stop date: 01/31/22 9:00:00 CDT Docusate No Notes: Memoria Sodium 50 2-22 (Same as l MG / 15:00: Senokot-S) Syed sennosides, 00 Equiv. to CARE HOME 8.6 MG Jacinta-Colac Oral Tablet e. Amiodarone No Notes: Memor ia 2-22 (Same as: l 15:00: Cordarone) Potassium No 40 mEq, 30 Me moria Chloride 2-22 mL, Route: l 1.33 MEQ/ML 15:00: PO, Drug He rmann Oral 00 form: LIQ, Solution Daily, Dosing Weight 54.682, kg, Start date: 01/02/22 9:00:00 CATH LAB RADIOLOGICAL TECHNOLOGIST, Duration: 30 day, Stop date: 01/31/22 9:00:00 CDT Docusate No Notes: Memoria Sodium 50 2-22 (Same as l MG / 15:00: Senokot-S) Syed sennosides, 00 Equiv. to CARE HOME 8.6 MG Jacinta-Colac Oral Tablet e. Amiodarone No Notes: Memor ia 2-22 (Same as: l 15:00: Cordarone) Constantia 00 Potassium No 40 mEq, 30 Me moria Chloride 2-22 mL, Route: l 1.33 MEQ/ML 15:00: PO, Drug He rmann Oral 00 form: LIQ, Solution Daily, Dosing Weight 54.682, kg, Start date: 01/02/22 9:00:00 CATH LAB RADIOLOGICAL TECHNOLOGIST, Duration: 30 day, Stop date: 01/31/22 9:00:00 CDT Docusate No Notes: Memoria Sodium 50 2-22 (Same as l MG / 15:00: Senokot-S) Constantia sennosides, 00 Equiv. to CARE HOME 8.6 MG Jacinta-Colac Oral Tablet e. Amiodarone No Notes: Memor ia 2-22 (Same as: l 15:00: Cordarone) Constantia 00 Potassium No 40 mEq, 30 Me moria Chloride 2-22 mL, Route: l 1.33 MEQ/ML 15:00: PO, Drug He rmann Oral 00 form: LIQ, Solution Daily, Dosing Weight 54.682, kg, Start date: 01/02/22 9:00:00 CATH LAB RADIOLOGICAL TECHNOLOGIST, Duration: 30 day, Stop date: 01/31/22 9:00:00 CDT Docusate No Notes: Memoria Sodium 50 2-22 (Same as l MG / 15:00: Senokot-S) Syed sennosides, 00 Equiv. to CARE HOME 8.6 MG Jacinta-[place] Oral Tablet e. Amiodarone No Notes: Memor ia 2-22 (Same as: l 15:00: Cordarone) Constantia 00 Potassium No 40 mEq, 30 Me moria Chloride 2-22 mL, Route: l 1.33 MEQ/ML 15:00: PO, Drug He rmann Oral 00 form: LIQ, Solution Daily, Dosing Weight 54.682, kg, Start date: 01/02/22 9:00:00 CATH LAB RADIOLOGICAL TECHNOLOGIST, Duration: 30 day, Stop date: 01/31/22 9:00:00 CDT Docusate No Notes: Memoria Sodium 50 2-22 (Same as l MG / 15:00: Senokot-S) Syed sennosides, 00 Equiv. to CARE HOME 8.6 MG Jacinta-[place] Oral Tablet e. Amiodarone No Notes: Memor ia 2-22 (Same as: l 15:00: Cordarone) Syed 00 Potassium No 40 mEq, 30 Me moria Chloride 2-22 mL, Route: l 1.33 MEQ/ML 15:00: PO, Drug He rmann Oral 00 form: LIQ, Solution Daily, Dosing Weight 54.682, kg, Start date: 01/02/22 9:00:00 CATH LAB RADIOLOGICAL TECHNOLOGIST, Duration: 30 day, Stop date: 01/31/22 9:00:00 CDT Docusate No Notes: Memoria Sodium 50 2-22 (Same as l MG / 15:00: Senokot-S) sennosides, 00 Equiv. to CARE HOME 8.6 MG Jacinta-Col[place] Oral Tablet e. Amiodarone No Notes: Memor ia 2-22 (Same as: l 15:00: Cordarone) Potassium No 40 mEq, 30 Me moria Chloride 2-22 mL, Route: l 1.33 MEQ/ML 15:00: PO, Drug He rmann Oral 00 form: LIQ, Solution Daily, Dosing Weight 54.682, kg, Start date: 01/02/22 9:00:00 CATH LAB RADIOLOGICAL TECHNOLOGIST, Duration: 30 day, Stop date: 01/31/22 9:00:00 CDT Acetaminoph No Notes: Max Memoria en 2-22 acetaminop l 12:00: hen 4000 Syed 00 mg/day (4 gm/day). (Same as: Tylenol Extra Strength) Acetaminoph No Notes: Max Memoria en 2-22 acetaminop l 12:00: hen 4000 Constantia 00 mg/day (4 gm/day). (Same as: Tylenol Extra Strength) Acetaminoph No Notes: Max Memoria en 2-22 acetaminop l 12:00: hen 4000 Syed 00 mg/day (4 gm/day). (Same as: Tylenol Extra Strength) Acetaminoph No Notes: Max Memoria en 2-22 acetaminop l 12:00: hen 4000 Constantia 00 mg/day (4 gm/day). (Same as: Tylenol Extra Strength) Acetaminoph No Notes: Max Memoria en 2-22 acetaminop l 12:00: hen 4000 Constantia 00 mg/day (4 gm/day). (Same as: Tylenol Extra Strength) Acetaminoph 0 No Notes: Max Memoria en 2-22 acetaminop l 12:00: hen 4000 Syed 00 mg/day (4 gm/day). (Same as: Tylenol Extra Strength) Acetaminoph 0 No Notes: Max Memoria en 2-22 acetaminop l 12:00: hen 4000 Syed 00 mg/day (4 gm/day). (Same as: Tylenol Extra Strength) Acetaminoph No Notes: Max Memoria en 2-22 acetaminop l 12:00: hen 4000 Constantia 00 mg/day (4 gm/day). (Same as: Tylenol Extra Strength) Acetaminoph 0 No Notes: Max Memoria en 2-22 acetaminop l 12:00: hen 4000 Syed 00 mg/day (4 gm/day). (Same as: Tylenol Extra Strength) Acetaminoph No Notes: Max Memoria en 2-22 acetaminop l 12:00: hen 4000 Syed 00 mg/day (4 gm/day). (Same as: Tylenol Extra Strength) Acetaminoph 0 No Notes: Max Memoria en 2-22 acetaminop l 12:00: hen 4000 Syed 00 mg/day (4 gm/day). (Same as: Tylenol Extra Strength) Acetaminoph 0 No Notes: Max [facility] en 2-22 acetaminop l 12:00: hen 4000 Syed 00 mg/day (4 gm/day). (Same as: Tylenol Extra Strength) Oxycodone 0 No Notes: [facility] a 2-22 (Same as: l 11:36: Roxicodone Syed 00 ) Oxycodone 0 No Notes: [facility] 2-22 (Same as: l 11:36: Roxicodone Syed 00 ) Oxycodone 0 No Notes: [facility] 2-22 (Same as: l 11:36: Roxicodone Syed 00 ) Oxycodone 2021-0 No Notes: [facility] 2-22 (Same as: l 11:36: Roxicodone [place]ia 00 ) Oxycodone 2021-0 No Notes: [facility] 2-22 (Same as: l 11:36: Roxicodone Syed ) Oxycodone 2021-0 No Notes: [facility] 2-22 (Same as: l 11:36: Roxicodone Syed ) Oxycodone 2021-0 No Notes: [facility] 2-22 (Same as: l 11:36: Roxicodone Syed ) Oxycodone 2021-0 No Notes: [facility] 2-22 (Same as: l 11:36: Roxicodone Syed 00 ) Oxycodone 2021-0 No Notes: [facility] 2-22 (Same as: l 11:36: Roxicodone Syed 00 ) Oxycodone 2021-0 No Notes: [facility] 2-22 (Same as: l 11:36: Roxicodone Syed 00 ) Oxycodone 2021-0 No Notes: [facility] 2-22 (Same as: l 11:36: Roxicodone Syed 00 ) Oxycodone 2021-0 No Notes: [facility] a 2-22 (Same as: l 11:36: Roxicodone Syed 00 ) Enoxaparin 2021-0 No Notes: [facility] ia 2-22 (Same as: l 10:00: Lovenox) Constantia Enoxaparin 2021-0 No Notes: [facility] 2-22 (Same as: l 10:00: Lovenox) Syed Enoxaparin 2021-0 No Notes: [facility] 2-22 (Same as: l 10:00: Lovenox) [place]ia Enoxaparin 2021-0 No Notes: [facility] 2-22 (Same as: l 10:00: Lovenox) Syed Enoxaparin 2021-0 No Notes: [facility] 2-22 (Same as: l 10:00: Lovenox) Syed Enoxaparin 2021-0 No Notes: [facility] 2-22 (Same as: l 10:00: Lovenox) Syed Enoxaparin 2021-0 No Notes: [facility] 2-22 (Same as: l 10:00: Lovenox) Syed 00 Enoxaparin 0 No Notes: [facility] 2-22 (Same as: l 10:00: Lovenox) Constantia 00 Enoxaparin 0 No Notes: [facility] 2-22 (Same as: l 10:00: Lovenox) Syed 00 Enoxaparin 0 No Notes: [facility] 2-22 (Same as: l 10:00: Lovenox) Syed 00 Enoxaparin 0 No Notes: [facility] 2-22 (Same as: l 10:00: Lovenox) Syed 00 Enoxaparin 0 No Notes: [facility] 2-22 (Same as: l 10:00: Lovenox) Constantia 00 Robaxin 0 No Notes: [facility] 2-22 (Same l 07:30: as:Robaxin Constantia 00 ) Robaxin 0 No Notes: [facility] 2-22 (Same l 07:30: as:Robaxin Syed 00 ) Robaxin 0 No Notes: [facility] 2-22 (Same l 07:30: as:Robaxin [place]ia 00 ) Robaxin 0 No Notes: [facility] 2-22 (Same l 07:30: as:Robaxin Syed 00 ) Robaxin 0 No Notes: [facility] 2-22 (Same l 07:30: as:Robaxin [place]ia 00 ) Robaxin 0 No Notes: [facility] 2-22 (Same l 07:30: as:Robaxin Syed 00 ) Robaxin 2021-0 No Notes: [facility] 2-22 (Same l 07:30: as:Robaxin Syed 00 ) Robaxin 2021-0 No Notes: [facility] 2-22 (Same l 07:30: as:Robaxin Constantia 00 ) Robaxin 2021-0 No Notes: [facility] 2-22 (Same l 07:30: as:Robaxin Syed 00 ) Robaxin 0 No Notes: [facility] 2-22 (Same l 07:30: as:Robaxin [place]ia 00 ) Robaxin 2021-0 No Notes: [facility] 2-22 (Same l 07:30: as:Robaxin Syed 00 ) Robaxin 2021-0 No Notes: [facility] 2-22 (Same l 07:30: as:Robaxin Syed 00 ) linezolid No Notes: [facility] 2-22 Protect l 07:00: from Syed 00 light. (Same as: Zyvox) linezolid No Notes: [facility] 2-22 Protect l 07:00: from Syed 00 light. (Same as: Zyvox) linezolid 0 No Notes: [facility] 2-22 Protect l 07:00: from Syed 00 light. (Same as: Zyvox) linezolid No Notes: [facility] 2-22 Protect l 07:00: from Syed 00 light. (Same as: Zyvox) linezolid No Notes: [facility] 2-22 Protect l 07:00: from Syed 00 light. (Same as: Zyvox) linezolid No Notes: [facility] 2-22 Protect l 07:00: from Syed 00 light. (Same as: Zyvox) linezolid No Notes: [facility] 2-22 Protect l 07:00: from [place] 00 light. (Same as: Zyvox) linezolid No Notes: [facility] 2-22 Protect l 07:00: from [place] 00 light. (Same as: Zyvox) linezolid No Notes: [facility] a 2-22 Protect l 07:00: from Syed 00 light. (Same as: Zyvox) linezolid No Notes: [facility] a 2-22 Protect l 07:00: from [place] 00 light. (Same as: Zyvox) linezolid 0 No Notes: [facility] 2-22 Protect l 07:00: from Syed 00 light. (Same as: Zyvox) linezolid 0 No Notes: [facility] 2-22 Protect l 07:00: from [place] 00 light. (Same as: Zyvox) Acetaminoph No Notes: [facility] en 2-22 acetaminop l 05:40: hen 4000 Constantia 00 mg/day (4 gm/day). (Same as: Tylenol Extra Strength) Insulin No Notes: [facility] regular 2-22 (Same as: l 05:40: Humulin R) Syed 00 Roll in palms of hands gently; Do not shake vigorously . WASTE: F/P - Black; E - [facility] Trash Bin Stable for 31 days at room temperatur e Expires in days from ____Date Dextrose No 12.5 gm, [facility] 50% Syringe 2-22 25 mL, l (D50W) 05:40: Route: Constantia 00 IVP, Drug Form: INJ, Dosing Weight 54.682, kg, PRN, PRN Abnormal Lab Result, Start date: 01/01/22 23:40:00 CATH LAB RADIOLOGICAL TECHNOLOGIST, Duration: 30 day, Stop date: 02/01/22 0:39:00 CDT, For [facility] 40 mg/dL - 60 mg/dL, 0 Acetaminoph No Notes: [facility] 2-22 acetaminop l 05:40: hen 4000 Syed 00 mg/day (4 gm/day). (Same as: Tylenol Extra Strength) Insulin No Notes: [facility] regular 2-22 (Same as: l 05:40: Humulin R) Syed 00 Roll in palms of hands gently; Do not shake vigorously . WASTE: F/P - Black; E - [facility] Trash Bin Stable for 31 days at room temperatur e Expires in days from ____Date Dextrose No 12.5 gm, [facility] 50% Syringe 2-22 25 mL, l (D50W) 05:40: Route: Syed 00 IVP, Drug Form: INJ, Dosing Weight 54.682, kg, PRN, PRN Abnormal Lab Result, Start date: 01/01/22 23:40:00 CATH LAB RADIOLOGICAL TECHNOLOGIST, Duration: 30 day, Stop date: 02/01/22 0:39:00 CDT, For [facility] 40 mg/dL - 60 mg/dL, 0 Acetaminoph No Notes: [facility] 2-22 acetaminop l 05:40: hen 4000 Constantia 00 mg/day (4 gm/day). (Same as: Tylenol Extra Strength) Insulin No Notes: [facility] regular 2-22 (Same as: l 05:40: Humulin R) Syed 00 Roll in palms of hands gently; Do not shake vigorously . WASTE: F/P - Black; E - [facility] Trash Bin Stable for 31 days at room temperatur e Expires in days from ____Date Dextrose No 12.5 gm, [facility] 50% Syringe 2-22 25 mL, l (D50W) 05:40: Route: Syed 00 IVP, Drug Form: INJ, Dosing Weight 54.682, kg, PRN, PRN Abnormal Lab Result, Start date: 01/01/22 23:40:00 CATH LAB RADIOLOGICAL TECHNOLOGIST, Duration: 30 day, Stop date: 02/01/22 0:39:00 CDT, For [facility] 40 mg/dL - 60 mg/dL, 0 Acetaminoph No Notes: [facility] en - acetaminop l 05:40: hen 4000 Syed 00 mg/day (4 gm/day). (Same as: Tylenol Extra Strength) Insulin No Notes: [facility] regular 2- (Same as: l 05:40: Humulin R) Syed 00 Roll in palms of hands gently; Do not shake vigorously . WASTE: F/P - Black; E - [facility] Trash Bin Stable for 31 days at room temperatur e Expires in days from ____Date Dextrose No 12.5 gm, [facility] 50% Syringe 2-22 25 mL, l (D50W) 05:40: Route: [place] 00 IVP, Drug Form: INJ, Dosing Weight 54.682, kg, PRN, PRN Abnormal Lab Result, Start date: 01/01/22 23:40:00 CATH LAB RADIOLOGICAL TECHNOLOGIST, Duration: 30 day, Stop date: 02/01/22 0:39:00 CDT, For [facility] 40 mg/dL - 60 mg/dL, 0 Acetaminoph No Notes: [facility] en 2-22 acetaminop l 05:40: hen 4000 Syed 00 mg/day (4 gm/day). (Same as: Tylenol Extra Strength) Insulin No Notes: [facility] regular 2-22 (Same as: l 05:40: Humulin R) [place]ia 00 Roll in palms of hands gently; Do not shake vigorously . WASTE: F/P - Black; E - [facility] Trash Bin Stable for 31 days at room temperatur e Expires in days from ____Date Dextrose No 12.5 gm, [facility] 50% Syringe 2-22 25 mL, l (D50W) 05:40: Route: Syed 00 IVP, Drug Form: INJ, Dosing Weight 54.682, kg, PRN, PRN Abnormal Lab Result, Start date: 01/01/22 23:40:00 CATH LAB RADIOLOGICAL TECHNOLOGIST, Duration: 30 day, Stop date: 02/01/22 0:39:00 CDT, For [facility] 40 mg/dL - 60 mg/dL, 0 Acetaminoph No Notes: [facility] en 2-22 acetaminop l 05:40: hen 4000 Syed 00 mg/day (4 gm/day). (Same as: Tylenol Extra Strength) Insulin No Notes: [facility] regular 2-22 (Same as: l 05:40: Humulin R) Syed 00 Roll in palms of hands gently; Do not shake vigorously . WASTE: F/P - Black; E - [facility] Trash Bin Stable for 31 days at room temperatur e Expires in days from ____Date Dextrose No 12.5 gm, [facility] 50% Syringe 2-22 25 mL, l (D50W) 05:40: Route: [place] 00 IVP, Drug Form: INJ, Dosing Weight 54.682, kg, PRN, PRN Abnormal Lab Result, Start date: 01/01/22 23:40:00 CATH LAB RADIOLOGICAL TECHNOLOGIST, Duration: 30 day, Stop date: 02/01/22 0:39:00 CDT, For [facility] 40 mg/dL - 60 mg/dL, 0 Acetaminoph No Notes: [facility] en 2-22 acetaminop l 05:40: hen 4000 Syed 00 mg/day (4 gm/day). (Same as: Tylenol Extra Strength) Insulin No Notes: [facility] regular 2-22 (Same as: l 05:40: Humulin R) Constantia 00 Roll in palms of hands gently; Do not shake vigorously . WASTE: F/P - Black; E - [facility] Trash Bin Stable for 31 days at room temperatur e Expires in days from ____Date Dextrose No 12.5 gm, [facility] 50% Syringe 2-22 25 mL, l (D50W) 05:40: Route: Syed 00 IVP, Drug Form: INJ, Dosing Weight 54.682, kg, PRN, PRN Abnormal Lab Result, Start date: 01/01/22 23:40:00 CATH LAB RADIOLOGICAL TECHNOLOGIST, Duration: 30 day, Stop date: 02/01/22 0:39:00 CDT, For [facility] 40 mg/dL - 60 mg/dL, 0 Acetaminoph No Notes: [facility] en 2-22 acetaminop l 05:40: hen 4000 [place]ia 00 mg/day (4 gm/day). (Same as: Tylenol Extra Strength) Insulin No Notes: [facility] regular 2-22 (Same as: l 05:40: Humulin R) Constantia 00 Roll in palms of hands gently; Do not shake vigorously . WASTE: F/P - Black; E - [facility] Trash Bin Stable for 31 days at room temperatur e Expires in days from ____Date Dextrose No 12.5 gm, [facility] 50% Syringe 2-22 25 mL, l (D50W) 05:40: Route: Syed 00 IVP, Drug Form: INJ, Dosing Weight 54.682, kg, PRN, PRN Abnormal Lab Result, Start date: 01/01/22 23:40:00 CATH LAB RADIOLOGICAL TECHNOLOGIST, Duration: 30 day, Stop date: 02/01/22 0:39:00 CDT, For [facility] 40 mg/dL - 60 mg/dL, 0 Acetaminoph No Notes: [facility] en 2-22 acetaminop l 05:40: hen 4000 Syed 00 mg/day (4 gm/day). (Same as: Tylenol Extra Strength) Insulin No Notes: [facility] regular 2-22 (Same as: l 05:40: Humulin R) Syed 00 Roll in palms of hands gently; Do not shake vigorously . WASTE: F/P - Black; E - [facility] Trash Bin Stable for 31 days at room temperatur e Expires in days from ____Date Dextrose No 12.5 gm, [facility] 50% Syringe 2-22 25 mL, l (D50W) 05:40: Route: [place] 00 IVP, Drug Form: INJ, Dosing Weight 54.682, kg, PRN, PRN Abnormal Lab Result, Start date: 01/01/22 23:40:00 CATH LAB RADIOLOGICAL TECHNOLOGIST, Duration: 30 day, Stop date: 02/01/22 0:39:00 CDT, For [facility] 40 mg/dL - 60 mg/dL, 0 Acetaminoph No Notes: [facility] en 2-22 acetaminop l 05:40: hen 4000 Syed 00 mg/day (4 gm/day). (Same as: Tylenol Extra Strength) Insulin No Notes: [facility] regular 2-22 (Same as: l 05:40: Humulin R) Syed 00 Roll in palms of hands gently; Do not shake vigorously . WASTE: F/P - Black; E - [facility] Trash Bin Stable for 31 days at room temperatur e Expires in days from ____Date Dextrose No 12.5 gm, [facility] 50% Syringe 2-22 25 mL, l (D50W) 05:40: Route: Syed 00 IVP, Drug Form: INJ, Dosing Weight 54.682, kg, PRN, PRN Abnormal Lab Result, Start date: 01/01/22 23:40:00 CATH LAB RADIOLOGICAL TECHNOLOGIST, Duration: 30 day, Stop date: 02/01/22 0:39:00 CDT, For [facility] 40 mg/dL - 60 mg/dL, 0 Acetaminoph No Notes: [facility] en 2-22 acetaminop l 05:40: hen 4000 Syed 00 mg/day (4 gm/day). (Same as: Tylenol Extra Strength) Insulin No Notes: [facility] regular 2-22 (Same as: l 05:40: Humulin R) Constantia 00 Roll in palms of hands gently; Do not shake vigorously . WASTE: F/P - Black; E - [facility] Trash Bin Stable for 31 days at room temperatur e Expires in days from ____Date Dextrose No 12.5 gm, [facility] 50% Syringe 2-22 25 mL, l (D50W) 05:40: Route: Syed 00 IVP, Drug Form: INJ, Dosing Weight 54.682, kg, PRN, PRN Abnormal Lab Result, Start date: 01/01/22 23:40:00 CATH LAB RADIOLOGICAL TECHNOLOGIST, Duration: 30 day, Stop date: 02/01/22 0:39:00 CDT, For [facility] 40 mg/dL - 60 mg/dL, 0 Acetaminoph No Notes: Max [facility] en 2-22 acetaminop l 05:40: hen 4000 Syed 00 mg/day (4 gm/day). (Same as: Tylenol Extra Strength) Insulin No Notes: [facility] regular 2-22 (Same as: l 05:40: Humulin R) Constantia 00 Roll in palms of hands gently; Do not shake vigorously . WASTE: F/P - Black; E - [facility] Trash Bin Stable for 31 days at room temperatur e Expires in days from ____Date Dextrose No 12.5 gm, [facility] 50% Syringe 2-22 25 mL, l (D50W) 05:40: Route: Syed 00 IVP, Drug Form: INJ, Dosing Weight 54.682, kg, PRN, PRN Abnormal Lab Result, Start date: 01/01/22 23:40:00 CATH LAB RADIOLOGICAL TECHNOLOGIST, Duration: 30 day, Stop date: 02/01/22 0:39:00 CDT, For [facility] 40 mg/dL - 60 mg/dL, 0 Vancomycin No PHARMACY [facility] 2-22 USE ONLY, l 04:30: Route: [place] 50 MISC, PRN, Drug form: MISC, PRN Other -See Comment, Start date: 01/01/22 22:30:50 CATH LAB RADIOLOGICAL TECHNOLOGIST, Stop date: 01/31/22 22:30:50 CDT, 30 day Vancomycin No PHARMACY [facility] 2-22 USE ONLY, l 04:30: Route: [place] 50 MISC, PRN, Drug form: MISC, PRN Other -See Comment, Start date: 01/01/22 22:30:50 CATH LAB RADIOLOGICAL TECHNOLOGIST, Stop date: 01/31/22 22:30:50 CDT, 30 day Vancomycin No PHARMACY [facility] 2-22 USE ONLY, l 04:30: Route: [place] 50 MISC, PRN, Drug form: MISC, PRN Other -See Comment, Start date: 01/01/22 22:30:50 CATH LAB RADIOLOGICAL TECHNOLOGIST, Stop date: 01/31/22 22:30:50 CDT, 30 day Vancomycin No PHARMACY [facility] 2-22 USE ONLY, l 04:30: Route: [place] 50 MISC, PRN, Drug form: MISC, PRN Other -See Comment, Start date: 01/01/22 22:30:50 CATH LAB RADIOLOGICAL TECHNOLOGIST, Stop date: 01/31/22 22:30:50 CDT, 30 day Vancomycin 0 No PHARMACY [facility] 2-22 USE ONLY, l 04:30: Route: [place] 50 MISC, PRN, Drug form: MISC, PRN Other -See Comment, Start date: 01/01/22 22:30:50 CATH LAB RADIOLOGICAL TECHNOLOGIST, Stop date: 01/31/22 22:30:50 CDT, 30 day Vancomycin 0 No PHARMACY [facility] 2-22 USE ONLY, l 04:30: Route: [place] 50 MISC, PRN, Drug form: MISC, PRN Other -See Comment, Start date: 01/01/22 22:30:50 CATH LAB RADIOLOGICAL TECHNOLOGIST, Stop date: 01/31/22 22:30:50 CDT, 30 day Vancomycin 0 No PHARMACY [facility] 2-22 USE ONLY, l 04:30: Route: Syed 50 MISC, PRN, Drug form: MISC, PRN Other -See Comment, Start date: 01/01/22 22:30:50 CATH LAB RADIOLOGICAL TECHNOLOGIST, Stop date: 01/31/22 22:30:50 CDT, 30 day Vancomycin 0 No PHARMACY [facility] 2-22 USE ONLY, l 04:30: Route: [place] 50 MISC, PRN, Drug form: MISC, PRN Other -See Comment, Start date: 01/01/22 22:30:50 CATH LAB RADIOLOGICAL TECHNOLOGIST, Stop date: 01/31/22 22:30:50 CDT, 30 day Vancomycin 0 No PHARMACY [facility] 2-22 USE ONLY, l 04:30: Route: [place] 50 MISC, PRN, Drug form: MISC, PRN Other -See Comment, Start date: 01/01/22 22:30:50 CATH LAB RADIOLOGICAL TECHNOLOGIST, Stop date: 01/31/22 22:30:50 CDT, 30 day Vancomycin 0 No PHARMACY [facility] 2-22 USE ONLY, l 04:30: Route: [place] 50 MISC, PRN, Drug form: MISC, PRN Other -See Comment, Start date: 01/01/22 22:30:50 CATH LAB RADIOLOGICAL TECHNOLOGIST, Stop date: 01/31/22 22:30:50 CDT, 30 day Vancomycin 0 No PHARMACY [facility] 2-22 USE ONLY, l 04:30: Route: Syed 50 MISC, PRN, Drug form: MISC, PRN Other -See Comment, Start date: 01/01/22 22:30:50 CATH LAB RADIOLOGICAL TECHNOLOGIST, Stop date: 01/31/22 22:30:50 CDT, 30 day Vancomycin 0 No PHARMACY [facility] 2-22 USE ONLY, l 04:30: Route: [place] 50 MISC, PRN, Drug form: MISC, PRN Other -See Comment, Start date: 01/01/22 22:30:50 CATH LAB RADIOLOGICAL TECHNOLOGIST, Stop date: 01/31/22 22:30:50 CDT, 30 day cefepime 0 No Notes: [facility] 2-22 (Same as: l 03:28: Maxipime) Syed 00 cefePIME 1gm in sterile water 10mL Give IV push slowly over 5 minutes cefepime 2022-0 No Notes: [facility] 2-22 (Same as: l 03:28: Maxipime) [place]ia 00 cefePIME 1gm in sterile water 10mL Give IV push slowly over 5 minutes cefepime 2022-0 No Notes: [facility] 2-22 (Same as: l 03:28: Maxipime) Syed 00 cefePIME 1gm in sterile water 10mL Give IV push slowly over 5 minutes cefepime 2022-0 No Notes: [facility] 2-22 (Same as: l 03:28: Maxipime) Syed 00 cefePIME 1gm in sterile water 10mL Give IV push slowly over 5 minutes cefepime 2021-0 No Notes: [facility] 2-22 (Same as: l 03:28: Maxipime) Syed 00 cefePIME 1gm in sterile water 10mL Give IV push slowly over 5 minutes cefepime 2021-0 No Notes: [facility] 2-22 (Same as: l 03:28: Maxipime) Syed 00 cefePIME 1gm in sterile water 10mL Give IV push slowly over 5 minutes cefepime 2021-0 No Notes: [facility] 2-22 (Same as: l 03:28: Maxipime) Constantia 00 cefePIME 1gm in sterile water 10mL Give IV push slowly over 5 minutes cefepime 2-0 No Notes: [facility] 2-22 (Same as: l 03:28: Maxipime) [place] 00 cefePIME 1gm in sterile water 10mL Give IV push slowly over 5 minutes cefepime 2-0 No Notes: [facility] 2-22 (Same as: l 03:28: Maxipime) Syed 00 cefePIME 1gm in sterile water 10mL Give IV push slowly over 5 minutes cefepime 2-0 No Notes: [facility] 2-22 (Same as: l 03:28: Maxipime) Constantia 00 cefePIME 1gm in sterile water 10mL Give IV push slowly over 5 minutes cefepime 2-0 No Notes: [facility] 2-22 (Same as: l 03:28: Maxipime) Constantia 00 cefePIME 1gm in sterile water 10mL Give IV push slowly over 5 minutes cefepime No Notes: [facility] 2-22 (Same as: l 03:28: Maxipime) Constantia 00 cefePIME 1gm in sterile water 10mL Give IV push slowly over 5 minutes Potassium No Notes: [facility] a Chloride 2-21 (Same as: l 1.33 MEQ/ML 21:58: Potassium H ermann Oral 00 Chloride) Solution Potassium No Notes: [facility] Chloride 2-21 (Same as: l 1.33 MEQ/ML 21:58: Potassium H ermann Oral 00 Chloride) Solution Potassium No Notes: [facility] Chloride 2-21 (Same as: l 1.33 MEQ/ML 21:58: Potassium H ermann Oral 00 Chloride) Solution Potassium No Notes: [facility] a Chloride 2-21 (Same as: l 1.33 MEQ/ML 21:58: Potassium H ermann Oral 00 Chloride) Solution Potassium No Notes: [facility] a Chloride 2-21 (Same as: l 1.33 MEQ/ML 21:58: Potassium H ermann Oral 00 Chloride) Solution Potassium No Notes: [facility] a Chloride 2-21 (Same as: l 1.33 MEQ/ML 21:58: Potassium H ermann Oral 00 Chloride) Solution Potassium No Notes: [facility] a Chloride 2-21 (Same as: l 1.33 MEQ/ML 21:58: Potassium H ermann Oral 00 Chloride) Solution Potassium No Notes: [facility] a Chloride 2-21 (Same as: l 1.33 MEQ/ML 21:58: Potassium H ermann Oral 00 Chloride) Solution Potassium No Notes: [facility] a Chloride 2-21 (Same as: l 1.33 MEQ/ML 21:58: Potassium H ermann Oral 00 Chloride) Solution Potassium No Notes: [facility] a Chloride 2-21 (Same as: l 1.33 MEQ/ML 21:58: Potassium H ermann Oral 00 Chloride) Solution Potassium No Notes: [facility] a Chloride 2-21 (Same as: l 1.33 MEQ/ML 21:58: Potassium H ermann Oral 00 Chloride) Solution Potassium No Notes: [facility] a Chloride 2-21 (Same as: l 1.33 MEQ/ML 21:58: Potassium H ermann Oral 00 Chloride) Solution Magnesium No Notes: [facility] a Sulfate 2-21 WASTE: F/P l 21:57: - Sink; E [place] - [facility] Trash Bin Magnesium No Notes: [facility] Sulfate 2-21 WASTE: F/P l 21:57: - Sink; E Syed - [facility] Trash Bin Magnesium No Notes: [facility] Sulfate 2-21 WASTE: F/P l 21:57: - Sink; E Syed - [facility] Trash Bin Magnesium No Notes: [facility] Sulfate 2-21 WASTE: F/P l 21:57: - Sink; E Syed - [facility] Trash Bin Magnesium No Notes: [facility] Sulfate 2-21 WASTE: F/P l 21:57: - Sink; E [place] - [facility] Trash [facility] Magnesium No Notes: [facility] Sulfate 2-21 WASTE: F/P l 21:57: - Sink; E [place] - [facility] Trash [facility] Magnesium No Notes: [facility] Sulfate 2-21 WASTE: F/P l 21:57: - Sink; E [place] - [facility] Trash [facility] Magnesium No Notes: [facility] Sulfate 2-21 WASTE: F/P l 21:57: - Sink; E [place] - [facility] Trash [facility] Magnesium No Notes: [facility] Sulfate 2-21 WASTE: F/P l 21:57: - Sink; E Syed - [facility] Trash [facility] Magnesium No Notes: [facility] Sulfate 2-21 WASTE: F/P l 21:57: - Sink; E [place] - [facility] Trash [facility] Magnesium No Notes: [facility] Sulfate 2-21 WASTE: F/P l 21:57: - Sink; E Syed - [facility] Trash [facility] Magnesium No Notes: [facility] Sulfate 2-21 WASTE: F/P l 21:57: - Sink; E [place] - [facility] Trash [facility] Iohexol No 100 mL, [facility] 2-21 Route: l 16:01: IVP, Drug Syed 00 Form: SOLN, Dosing Weight 54.682, kg, ONCALL, STAT, Start date: 01/01/22 10:01:00 CATH LAB RADIOLOGICAL TECHNOLOGIST, Duration: 1 doses or times, Dose = 2.2ml/kg, Max dose = 100ml -- "To be infused by Radiology Staff ONLY" Iohexol 2022-0 No 100 mL, [facility] 2-21 Route: l 16:01: IVP, Drug Syed 00 Form: SOLN, Dosing Weight 54.682, kg, ONCALL, STAT, Start date: 01/01/22 10:01:00 CATH LAB RADIOLOGICAL TECHNOLOGIST, Duration: 1 doses or times, Dose = 2.2ml/kg, Max dose = 100ml -- "To be infused by Radiology Staff ONLY" Iohexol 2-0 No 100 mL, [facility] 2 Route: l 16:01: IVP, Drug Syed 00 Form: SOLN, Dosing Weight 54.682, kg, ONCALL, STAT, Start date: 01/01/22 10:01:00 CATH LAB RADIOLOGICAL TECHNOLOGIST, Duration: 1 doses or times, Dose = 2.2ml/kg, Max dose = 100ml -- "To be infused by Radiology Staff ONLY" Iohexol 2-0 No 100 mL, [facility] 2 Route: l 16:01: IVP, Drug Syed 00 Form: SOLN, Dosing Weight 54.682, kg, ONCALL, STAT, Start date: 01/01/22 10:01:00 CATH LAB RADIOLOGICAL TECHNOLOGIST, Duration: 1 doses or times, Dose = 2.2ml/kg, Max dose = 100ml -- "To be infused by Radiology Staff ONLY" Iohexol 2-0 No 100 mL, [facility] 221 Route: l 16:01: IVP, Drug Syed 00 Form: SOLN, Dosing Weight 54.682, kg, ONCALL, STAT, Start date: 01/01/22 10:01:00 CATH LAB RADIOLOGICAL TECHNOLOGIST, Duration: 1 doses or times, Dose = 2.2ml/kg, Max dose = 100ml -- "To be infused by Radiology Staff ONLY" Iohexol 2022-0 No 100 mL, Mem[facility] 221 Route: l 16:01: IVP, Drug Syed 00 Form: SOLN, Dosing Weight 54.682, kg, ONCALL, STAT, Start date: 01/01/22 10:01:00 CATH LAB RADIOLOGICAL TECHNOLOGIST, Duration: 1 doses or times, Dose = 2.2ml/kg, Max dose = 100ml -- "To be infused by Radiology Staff ONLY" Iohexol 2022-0 No 100 mL, Mem[facility] 221 Route: l 16:01: IVP, Drug Syed 00 Form: SOLN, Dosing Weight 54.682, kg, ONCALL, STAT, Start date: 01/01/22 10:01:00 CATH LAB RADIOLOGICAL TECHNOLOGIST, Duration: 1 doses or times, Dose = 2.2ml/kg, Max dose = 100ml -- "To be infused by Radiology Staff ONLY" Iohexol 2022-0 No 100 mL, [facility] 2 Route: l 16:01: IVP, Drug Syed 00 Form: SOLN, Dosing Weight 54.682, kg, ONCALL, STAT, Start date: 01/01/22 10:01:00 CATH LAB RADIOLOGICAL TECHNOLOGIST, Duration: 1 doses or times, Dose = 2.2ml/kg, Max dose = 100ml -- "To be infused by Radiology Staff ONLY" Iohexol 2-0 No 100 mL, [facility] 2 Route: l 16:01: IVP, Drug Constantia 00 Form: SOLN, Dosing Weight 54.682, kg, ONCALL, STAT, Start date: 01/01/22 10:01:00 CATH LAB RADIOLOGICAL TECHNOLOGIST, Duration: 1 doses or times, Dose = 2.2ml/kg, Max dose = 100ml -- "To be infused by Radiology Staff ONLY" Iohexol 2022-0 No 100 mL, Memoria 2 Route: l 16:01: IVP, Drug Syed 00 Form: SOLN, Dosing Weight 54.682, kg, ONCALL, STAT, Start date: 01/01/22 10:01:00 CATH LAB RADIOLOGICAL TECHNOLOGIST, Duration: 1 doses or times, Dose = 2.2ml/kg, Max dose = 100ml -- "To be infused by Radiology Staff ONLY" Iohexol 2022-0 No 100 mL, Memoria 221 Route: l 16:01: IVP, Drug Syed 00 Form: SOLN, Dosing Weight 54.682, kg, ONCALL, STAT, Start date: 01/01/22 10:01:00 CATH LAB RADIOLOGICAL TECHNOLOGIST, Duration: 1 doses or times, Dose = 2.2ml/kg, Max dose = 100ml -- "To be infused by Radiology Staff ONLY" Iohexol No 100 mL, Memoria 2-21 Route: l 16:01: IVP, Drug Syed 00 Form: SOLN, Dosing Weight 54.682, kg, ONCALL, STAT, Start date: 01/01/22 10:01:00 CATH LAB RADIOLOGICAL TECHNOLOGIST, Duration: 1 doses or times, Dose = 2.2ml/kg, Max dose = 100ml -- "To be infused by Radiology Staff ONLY" Eliquis No Notes: [facility] 2-21 Same as: l 03:00: Eliquis Syed Eliquis No Notes: [facility] 2-21 Same as: l 03:00: Eliquis Constantia Eliquis No Notes: [facility] 2-21 Same as: l 03:00: Eliquis Syed Eliquis No Notes: [facility] 2-21 Same as: l 03:00: Eliquis Constantia Eliquis 0 No Notes: [facility] 2-21 Same as: l 03:00: Eliquis Syed Eliquis No Notes: [facility] 2-21 Same as: l 03:00: Eliquis Constantia Eliquis No Notes: [facility] 2-21 Same as: l 03:00: Eliquis Syed Eliquis No Notes: [facility] 2-21 Same as: l 03:00: Eliquis Syed Eliquis No Notes: [facility] 2-21 Same as: l 03:00: Eliquis Syed 00 Eliquis No Notes: [facility] 2-21 Same as: l 03:00: Eliquis Constantia Eliquis No Notes: [facility] 2-21 Same as: l 03:00: Eliquis Syed 00 Eliquis 2021-0 No Notes: [facility] 2-21 Same as: l 03:00: Eliquis Constantia 00 Calcium No 500 mL, [facility] Chloride 2-20 1,000 l 0.0014 23:15: ml/hr, Syed MEQ/ML / 00 Infuse Potassium Over: 0.5 Chloride hr, Route: 0.004 IV, 500, MEQ/ML / Drug form: Sodium INJ, ONCE, Chloride Dosing 0.103 Weight MEQ/ML / 54.682 kg, Sodium Start Lactate date: 0.028 12/31/21 MEQ/ML 17:15:00 Injectable [facility] RADIOLOGICAL TECHNOLOGIST, Stop Solution date: 12/31/21 17:15:00 CATH LAB RADIOLOGICAL TECHNOLOGIST, 0 Calcium 2022-0 No 500 mL, Memoria Chloride 2-20 1,000 l 0.0014 23:15: ml/hr, Syed MEQ/ML / 00 Infuse Potassium Over: 0.5 Chloride hr, Route: 0.004 IV, 500, MEQ/ML / Drug form: Sodium INJ, ONCE, Chloride Dosing 0.103 Weight MEQ/ML / 54.682 kg, Sodium Start Lactate date: 0.028 12/31/21 MEQ/ML 17:15:00 Injectable CATH LAB RADIOLOGICAL TECHNOLOGIST, Stop Solution date: 12/31/21 17:15:00 CATH LAB RADIOLOGICAL TECHNOLOGIST, 0 Calcium 2022-0 No 500 mL, Memoria Chloride 2-20 1,000 l 0.0014 23:15: ml/hr, Constantia MEQ/ML / 00 Infuse Potassium Over: 0.5 Chloride hr, Route: 0.004 IV, 500, MEQ/ML / Drug form: Sodium INJ, ONCE, Chloride Dosing 0.103 Weight MEQ/ML / 54.682 kg, Sodium Start Lactate date: 0.028 12/31/21 MEQ/ML 17:15:00 Injectable CATH LAB RADIOLOGICAL TECHNOLOGIST, Stop Solution date: 12/31/21 17:15:00 CATH LAB RADIOLOGICAL TECHNOLOGIST, 0 Calcium 2022-0 No 500 mL, Mem[facility] Chloride 2-20 1,000 l 0.0014 23:15: ml/hr, Syed MEQ/ML / 00 Infuse Potassium Over: 0.5 Chloride hr, Route: 0.004 IV, 500, MEQ/ML / Drug form: Sodium INJ, ONCE, Chloride Dosing 0.103 Weight MEQ/ML / 54.682 kg, Sodium Start Lactate date: 0.028 12/31/21 MEQ/ML 17:15:00 Injectable CATH LAB RADIOLOGICAL TECHNOLOGIST, Stop Solution date: 12/31/21 17:15:00 CATH LAB RADIOLOGICAL TECHNOLOGIST, 0 Calcium 2022-0 No 500 mL, Memoria Chloride 2-20 1,000 l 0.0014 23:15: ml/hr, Syed MEQ/ML / 00 Infuse Potassium Over: 0.5 Chloride hr, Route: 0.004 IV, 500, MEQ/ML / Drug form: Sodium INJ, ONCE, Chloride Dosing 0.103 Weight MEQ/ML / 54.682 kg, Sodium Start Lactate date: 0.028 12/31/21 MEQ/ML 17:15:00 Injectable CATH LAB RADIOLOGICAL TECHNOLOGIST, Stop Solution date: 12/31/21 17:15:00 CATH LAB RADIOLOGICAL TECHNOLOGIST, 0 Calcium 2022-0 No 500 mL, Memoria Chloride 2-20 1,000 l 0.0014 23:15: ml/hr, Syed MEQ/ML / 00 Infuse Potassium Over: 0.5 Chloride hr, Route: 0.004 IV, 500, MEQ/ML / Drug form: Sodium INJ, ONCE, Chloride Dosing 0.103 Weight MEQ/ML / 54.682 kg, Sodium Start Lactate date: 0.028 12/31/21 MEQ/ML 17:15:00 Injectable CATH LAB RADIOLOGICAL TECHNOLOGIST, Stop Solution date: 12/31/21 17:15:00 CATH LAB RADIOLOGICAL TECHNOLOGIST, 0 Calcium 2022-0 No 500 mL, Mem[facility] Chloride 2-20 1,000 l 0.0014 23:15: ml/hr, Constantia MEQ/ML / 00 Infuse Potassium Over: 0.5 Chloride hr, Route: 0.004 IV, 500, MEQ/ML / Drug form: Sodium INJ, ONCE, Chloride Dosing 0.103 Weight MEQ/ML / 54.682 kg, Sodium Start Lactate date: 0.028 12/31/21 MEQ/ML 17:15:00 Injectable CATH LAB RADIOLOGICAL TECHNOLOGIST, Stop Solution date: 12/31/21 17:15:00 CATH LAB RADIOLOGICAL TECHNOLOGIST, 0 Calcium 2022-0 No 500 mL, [facility] Chloride 2-20 1,000 l 0.0014 23:15: ml/hr, Syed MEQ/ML / 00 Infuse Potassium Over: 0.5 Chloride hr, Route: 0.004 IV, 500, MEQ/ML / Drug form: Sodium INJ, ONCE, Chloride Dosing 0.103 Weight MEQ/ML / 54.682 kg, Sodium Start Lactate date: 0.028 12/31/21 MEQ/ML 17:15:00 Injectable CATH LAB RADIOLOGICAL TECHNOLOGIST, Stop Solution date: 12/31/21 17:15:00 CATH LAB RADIOLOGICAL TECHNOLOGIST, 0 Calcium 2022-0 No 500 mL, Mem[facility] Chloride 2-20 1,000 l 0.0014 23:15: ml/hr, Constantia MEQ/ML / 00 Infuse Potassium Over: 0.5 Chloride hr, Route: 0.004 IV, 500, MEQ/ML / Drug form: Sodium INJ, ONCE, Chloride Dosing 0.103 Weight MEQ/ML / 54.682 kg, Sodium Start Lactate date: 0.028 12/31/21 MEQ/ML 17:15:00 Injectable CATH LAB RADIOLOGICAL TECHNOLOGIST, Stop Solution date: 12/31/21 17:15:00 CATH LAB RADIOLOGICAL TECHNOLOGIST, 0 Calcium 2022-0 No 500 mL, Mem[facility] Chloride 2-20 1,000 l 0.0014 23:15: ml/hr, Syed MEQ/ML / 00 Infuse Potassium Over: 0.5 Chloride hr, Route: 0.004 IV, 500, MEQ/ML / Drug form: Sodium INJ, ONCE, Chloride Dosing 0.103 Weight MEQ/ML / 54.682 kg, Sodium Start Lactate date: 0.028 12/31/21 MEQ/ML 17:15:00 Injectable CATH LAB RADIOLOGICAL TECHNOLOGIST, Stop Solution date: 12/31/21 17:15:00 CATH LAB RADIOLOGICAL TECHNOLOGIST, 0 Calcium 2022-0 No 500 mL, Memoria Chloride 2-20 1,000 l 0.0014 23:15: ml/hr, Constantia MEQ/ML / 00 Infuse Potassium Over: 0.5 Chloride hr, Route: 0.004 IV, 500, MEQ/ML / Drug form: Sodium INJ, ONCE, Chloride Dosing 0.103 Weight MEQ/ML / 54.682 kg, Sodium Start Lactate date: 0.028 12/31/21 MEQ/ML 17:15:00 Injectable CATH LAB RADIOLOGICAL TECHNOLOGIST, Stop Solution date: 12/31/21 17:15:00 CATH LAB RADIOLOGICAL TECHNOLOGIST, 0 Calcium 2022-0 No 500 mL, Mem[facility] Chloride 2-20 1,000 l 0.0014 23:15: ml/hr, Syed MEQ/ML / 00 Infuse Potassium Over: 0.5 Chloride hr, Route: 0.004 IV, 500, MEQ/ML / Drug form: Sodium INJ, ONCE, Chloride Dosing 0.103 Weight MEQ/ML / 54.682 kg, Sodium Start Lactate date: 0.028 12/31/21 MEQ/ML 17:15:00 Injectable CATH LAB RADIOLOGICAL TECHNOLOGIST, Stop Solution date: 12/31/21 17:15:00 CATH LAB RADIOLOGICAL TECHNOLOGIST, 0 Oxycodone 2021-0 No Notes: Memori a 2-20 (Same as: l 15:22: Roxicodone Constantia 00 ) Oxycodone 0 No Notes: Memori a 2-20 (Same as: l 15:22: Roxicodone Constantia 00 ) Oxycodone 0 No Notes: Memori a 2-20 (Same as: l 15:22: Roxicodone ) Oxycodone 0 No Notes: Memori a 2-20 (Same as: l 15:22: Roxicodone Constantia 00 ) Oxycodone 0 No Notes: Memori a 2-20 (Same as: l 15:22: Roxicodone ) Oxycodone 0 No Notes: Memori a 2-20 (Same as: l 15:22: Roxicodone ) Oxycodone 0 No Notes: Memori a 2-20 (Same as: l 15:22: Roxicodone Syed 00 ) Oxycodone 0 No Notes: Memori a 2-20 (Same as: l 15:22: Roxicodone ) Oxycodone 0 No Notes: Memori a 2-20 (Same as: l 15:22: Roxicodone ) Oxycodone 0 No Notes: Memori a 2-20 (Same as: l 15:22: Roxicodone ) Oxycodone 0 No Notes: Memori a 2-20 (Same as: l 15:22: Roxicodone ) Oxycodone 0 No Notes: Memori a 2-20 (Same as: l 15:22: Roxicodone ) Adenosine 2021-0 No 6 mg, Memoria 2-20 Route: l 09:37: IVP, ONCE, Dosing Weight 54.682, kg, Start date: 12/31/21 3:37:00 CATH LAB RADIOLOGICAL TECHNOLOGIST, Stop date: 12/31/21 3:37:00 CATH LAB RADIOLOGICAL TECHNOLOGIST Adenosine 2021-0 No 6 mg, Memoria 2-20 Route: l 09:37: IVP, ONCE, Dosing Weight 54.682, kg, Start date: 12/31/21 3:37:00 CATH LAB RADIOLOGICAL TECHNOLOGIST, Stop date: 12/31/21 3:37:00 CATH LAB RADIOLOGICAL TECHNOLOGIST Adenosine 2022-0 No 6 mg, Memoria 2-20 Route: l 09:37: IVP, ONCE, Constantia 00 Dosing Weight 54.682, kg, Start date: 12/31/21 3:37:00 CATH LAB RADIOLOGICAL TECHNOLOGIST, Stop date: 12/31/21 3:37:00 CATH LAB RADIOLOGICAL TECHNOLOGIST Adenosine 2022-0 No 6 mg, Memoria 2-20 Route: l 09:37: IVP, ONCE, Dosing Weight 54.682, kg, Start date: 12/31/21 3:37:00 CATH LAB RADIOLOGICAL TECHNOLOGIST, Stop date: 12/31/21 3:37:00 CATH LAB RADIOLOGICAL TECHNOLOGIST Adenosine 2022-0 No 6 mg, Memoria 2-20 Route: l 09:37: IVP, ONCE, Dosing Weight 54.682, kg, Start date: 12/31/21 3:37:00 CATH LAB RADIOLOGICAL TECHNOLOGIST, Stop date: 12/31/21 3:37:00 CATH LAB RADIOLOGICAL TECHNOLOGIST Adenosine 2022-0 No 6 mg, Memoria 2-20 Route: l 09:37: IVP, ONCE, Dosing Weight 54.682, kg, Start date: 12/31/21 3:37:00 CATH LAB RADIOLOGICAL TECHNOLOGIST, Stop date: 12/31/21 3:37:00 CATH LAB RADIOLOGICAL TECHNOLOGIST Adenosine 2022-0 No 6 mg, Memoria 2-20 Route: l 09:37: IVP, ONCE, Dosing Weight 54.682, kg, Start date: 12/31/21 3:37:00 CATH LAB RADIOLOGICAL TECHNOLOGIST, Stop date: 12/31/21 3:37:00 CATH LAB RADIOLOGICAL TECHNOLOGIST Adenosine 2022-0 No 6 mg, Memoria 2-20 Route: l 09:37: IVP, ONCE, Dosing Weight 54.682, kg, Start date: 12/31/21 3:37:00 CATH LAB RADIOLOGICAL TECHNOLOGIST, Stop date: 12/31/21 3:37:00 CATH LAB RADIOLOGICAL TECHNOLOGIST Adenosine 2022-0 No 6 mg, Memoria 2-20 Route: l 09:37: IVP, ONCE, Dosing Weight 54.682, kg, Start date: 12/31/21 3:37:00 CATH LAB RADIOLOGICAL TECHNOLOGIST, Stop date: 12/31/21 3:37:00 CATH LAB RADIOLOGICAL TECHNOLOGIST Adenosine 2022-0 No 6 mg, Memoria 2-20 Route: l 09:37: IVP, ONCE, Constantia 00 Dosing Weight 54.682, kg, Start date: 12/31/21 3:37:00 CATH LAB RADIOLOGICAL TECHNOLOGIST, Stop date: 12/31/21 3:37:00 CATH LAB RADIOLOGICAL TECHNOLOGIST Adenosine 2022-0 No 6 mg, Memoria 2-20 Route: l 09:37: IVP, ONCE, Constantia 00 Dosing Weight 54.682, kg, Start date: 12/31/21 3:37:00 CATH LAB RADIOLOGICAL TECHNOLOGIST, Stop date: 12/31/21 3:37:00 CATH LAB RADIOLOGICAL TECHNOLOGIST Adenosine 2022-0 No 6 mg, Memoria 2-20 Route: l 09:37: IVP, ONCE, Dosing Weight 54.682, kg, Start date: 12/31/21 3:37:00 CATH LAB RADIOLOGICAL TECHNOLOGIST, Stop date: 12/31/21 3:37:00 CATH LAB RADIOLOGICAL TECHNOLOGIST AMIODarone 2022-0 No 2 mg/ml. Me moria 900 mg in 2-20 Use Glass l D5W 500 ml 09:33: Bottle or He rmann IV 900 mg + 00 Non PVC Dextrose 5% Bag "Use in Water IV 0.22 482 mL micron in-line filter" MEDICATION WASTE Product Size: 900 mg Product Wasted: ___ mg AMIODarone 2022-0 No 2 mg/ml. Me moria 900 mg in 2-20 Use Glass l D5W 500 ml 09:33: Bottle or He rmann IV 900 mg + 00 Non PVC Dextrose 5% Bag "Use in Water IV 0.22 482 mL micron in-line filter" MEDICATION WASTE Product Size: 900 mg Product Wasted: ___ mg AMIODarone 2022-0 No 2 mg/ml. Me moria 900 mg in 2-20 Use Glass l D5W 500 ml 09:33: Bottle or He rmann IV 900 mg + 00 Non PVC Dextrose 5% Bag "Use in Water IV 0.22 482 mL micron in-line filter" MEDICATION WASTE Product Size: 900 mg Product Wasted: ___ mg AMIODarone 2022-0 No 2 mg/ml. Me moria 900 mg in 2-20 Use Glass l D5W 500 ml 09:33: Bottle or He rmann IV 900 mg + 00 Non PVC Dextrose 5% Bag "Use in Water IV 0.22 482 mL micron in-line filter" MEDICATION WASTE Product Size: 900 mg Product Wasted: ___ mg AMIODarone 2022-0 No 2 mg/ml. Me moria 900 mg in 2-20 Use Glass l D5W 500 ml 09:33: Bottle or He rmann IV 900 mg + 00 Non PVC Dextrose 5% Bag "Use in Water IV 0.22 482 mL micron in-line filter" MEDICATION WASTE Product Size: 900 mg Product Wasted: ___ mg AMIODarone 2022-0 No 2 mg/ml. Me moria 900 mg in 2-20 Use Glass l D5W 500 ml 09:33: Bottle or He rmann IV 900 mg + 00 Non PVC Dextrose 5% Bag "Use in Water IV 0.22 482 mL micron in-line filter" MEDICATION WASTE Product Size: 900 mg Product Wasted: ___ mg AMIODarone 2022-0 No 2 mg/ml. Me moria 900 mg in 2-20 Use Glass l D5W 500 ml 09:33: Bottle or He rmann IV 900 mg + 00 Non PVC Dextrose 5% Bag "Use in Water IV 0.22 482 mL micron in-line filter" MEDICATION WASTE Product Size: 900 mg Product Wasted: ___ mg AMIODarone 2022-0 No 2 mg/ml. Me moria 900 mg in 2-20 Use Glass l D5W 500 ml 09:33: Bottle or He rmann IV 900 mg + 00 Non PVC Dextrose 5% Bag "Use in Water IV 0.22 482 mL micron in-line filter" MEDICATION WASTE Product Size: 900 mg Product Wasted: ___ mg AMIODarone 2022-0 No 2 mg/ml. Me moria 900 mg in 2-20 Use Glass l D5W 500 ml 09:33: Bottle or He rmann IV 900 mg + 00 Non PVC Dextrose 5% Bag "Use in Water IV 0.22 482 mL micron in-line filter" MEDICATION WASTE Product Size: 900 mg Product Wasted: ___ mg AMIODarone 2022-0 No 2 mg/ml. Me moria 900 mg in 2-20 Use Glass l D5W 500 ml 09:33: Bottle or He rmann IV 900 mg + 00 Non PVC Dextrose 5% Bag "Use in Water IV 0.22 482 mL micron in-line filter" MEDICATION WASTE Product Size: 900 mg Product Wasted: ___ mg AMIODarone 2022-0 No 2 mg/ml. Me moria 900 mg in 2-20 Use Glass l D5W 500 ml 09:33: Bottle or He rmann IV 900 mg + 00 Non PVC Dextrose 5% Bag "Use in Water IV 0.22 482 mL micron in-line filter" MEDICATION WASTE Product Size: 900 mg Product Wasted: ___ mg AMIODarone 2022-0 No 2 mg/ml. Me moria 900 mg in 2-20 Use Glass l D5W 500 ml 09:33: Bottle or He rmann IV 900 mg + 00 Non PVC Dextrose 5% Bag "Use in Water IV 0.22 482 mL micron in-line filter" MEDICATION WASTE Product Size: 900 mg Product Wasted: ___ mg Amiodarone 2022-0 No 2 mg/ml. Me moria 2-20 "Recommend l 09:12: ation: Use Constantia 00 an in-line filter during administra tion for continuous infusions to reduce the incidence of phlebitis" (Same as Codarone) MEDICATION WASTE Product Size: 150 mg Product Wasted: ___ mg Amiodarone 2022-0 No 2 mg/ml. Me moria 2-20 "Recommend l 09:12: ation: Use Syed 00 an in-line filter during administra tion for continuous infusions to reduce the incidence of phlebitis" (Same as Codarone) MEDICATION WASTE Product Size: 150 mg Product Wasted: ___ mg Amiodarone 2022-0 No 2 mg/ml. Me moria 2-20 "Recommend l 09:12: ation: Use Constantia 00 an in-line filter during administra tion for continuous infusions to reduce the incidence of phlebitis" (Same as Codarone) MEDICATION WASTE Product Size: 150 mg Product Wasted: ___ mg Amiodarone 2022-0 No 2 mg/ml. Pa moria 2-20 "Recommend l 09:12: ation: Use Syed 00 an in-line filter during administra tion for continuous infusions to reduce the incidence of phlebitis" (Same as Codarone) MEDICATION WASTE Product Size: 150 mg Product Wasted: ___ mg Amiodarone 2022-0 No 2 mg/ml. Pa moria 2-20 "Recommend l 09:12: ation: Use Constantia 00 an in-line filter during administra tion for continuous infusions to reduce the incidence of phlebitis" (Same as Codarone) MEDICATION WASTE Product Size: 150 mg Product Wasted: ___ mg Amiodarone 2022-0 No 2 mg/ml. Pa moria 2-20 "Recommend l 09:12: ation: Use Syed 00 an in-line filter during administra tion for continuous infusions to reduce the incidence of phlebitis" (Same as Codarone) MEDICATION WASTE Product Size: 150 mg Product Wasted: ___ mg Amiodarone 2022-0 No 2 mg/ml. Pa moria 2-20 "Recommend l 09:12: ation: Use Constantia 00 an in-line filter during administra tion for continuous infusions to reduce the incidence of phlebitis" (Same as Codarone) MEDICATION WASTE Product Size: 150 mg Product Wasted: ___ mg Amiodarone 2022-0 No 2 mg/ml. Pa moria 2-20 "Recommend l 09:12: ation: Use Syed 00 an in-line filter during administra tion for continuous infusions to reduce the incidence of phlebitis" (Same as Codarone) MEDICATION WASTE Product Size: 150 mg Product Wasted: ___ mg Amiodarone 2022-0 No 2 mg/ml. Pa moria 2-20 "Recommend l 09:12: ation: Use Constantia 00 an in-line filter during administra tion for continuous infusions to reduce the incidence of phlebitis" (Same as Codarone) MEDICATION WASTE Product Size: 150 mg Product Wasted: ___ mg Amiodarone 2021-0 No 2 mg/ml. Pa moria 2-20 "Recommend l 09:12: ation: Use Syed 00 an in-line filter during administra tion for continuous infusions to reduce the incidence of phlebitis" (Same as Codarone) MEDICATION WASTE Product Size: 150 mg Product Wasted: ___ mg Amiodarone 2021-0 No 2 mg/ml. Pa moria 2-20 "Recommend l 09:12: ation: Use Constantia 00 an in-line filter during administra tion for continuous infusions to reduce the incidence of phlebitis" (Same as Codarone) MEDICATION WASTE Product Size: 150 mg Product Wasted: ___ mg Amiodarone 2021-0 No 2 mg/ml. Pa moria 2-20 "Recommend l 09:12: ation: Use Constantia 00 an in-line filter during administra tion for continuous infusions to reduce the incidence of phlebitis" (Same as Codarone) MEDICATION WASTE Product Size: 150 mg Product Wasted: ___ mg Adenosine No Notes: Memori a 2-20 Rapid IV l 08:45: PUSH over Constantia 00 1-2 sec; Flush line immediatel y after drug is given. Adenosine No Notes: Memori a 2-20 Rapid IV l 08:45: PUSH over Constantia 00 1-2 sec; Flush line immediatel y after drug is given. Adenosine No Notes: Memori a 2-20 Rapid IV l 08:45: PUSH over Constantia 00 1-2 sec; Flush line immediatel y after drug is given. Adenosine No Notes: Memori a 2-20 Rapid IV l 08:45: PUSH over Constantia 00 1-2 sec; Flush line immediatel y after drug is given. Adenosine No Notes: Memori a 2-20 Rapid IV l 08:45: PUSH over Constantia 00 1-2 sec; Flush line immediatel y after drug is given. Adenosine No Notes: Memori a 2-20 Rapid IV l 08:45: PUSH over Constantia 00 1-2 sec; Flush line immediatel y after drug is given. Adenosine No Notes: Memori a 2-20 Rapid IV l 08:45: PUSH over Syed 00 1-2 sec; Flush line immediatel y after drug is given. Adenosine No Notes: Memori a 2-20 Rapid IV l 08:45: PUSH over Syed 00 1-2 sec; Flush line immediatel y after drug is given. Adenosine No Notes: Memori a 2-20 Rapid IV l 08:45: PUSH over Constantia 00 1-2 sec; Flush line immediatel y after drug is given. Adenosine No Notes: Memori a 2-20 Rapid IV l 08:45: PUSH over Syed 00 1-2 sec; Flush line immediatel y after drug is given. Adenosine No Notes: Memori a 2-20 Rapid IV l 08:45: PUSH over Constantia 00 1-2 sec; Flush line immediatel y after drug is given. Adenosine No Notes: Memori a 2-20 Rapid IV l 08:45: PUSH over Syed 00 1-2 sec; Flush line immediatel y after drug is given. Magnesium No Notes: Memori a Sulfate 2-20 WASTE: F/P l 08:40: - Sink; E Syed 00 - [facility] Magnesium No Notes: Memori a Sulfate 2-20 WASTE: F/P l 08:40: - Sink; E Syed 00 - [facility] Trash [facility] Magnesium No Notes: Memori a Sulfate 2-20 WASTE: F/P l 08:40: - Sink; E Syed 00 - [facility] Trash [facility] Magnesium No Notes: Memori a Sulfate 2-20 WASTE: F/P l 08:40: - Sink; E Constantia 00 - [facility] Magnesium No Notes: Memori a Sulfate 2-20 WASTE: F/P l 08:40: - Sink; E Constantia 00 - [facility] Magnesium No Notes: Memori a Sulfate 2-20 WASTE: F/P l 08:40: - Sink; E Syed 00 - [facility] Magnesium No Notes: Memori a Sulfate 2-20 WASTE: F/P l 08:40: - Sink; E Syed - [facility] Magnesium No Notes: Memori a Sulfate 2-20 WASTE: F/P l 08:40: - Sink; E Constantia - [facility] Magnesium No Notes: Memori a Sulfate 2-20 WASTE: F/P l 08:40: - Sink; E Syed - [facility] Magnesium No Notes: Memori a Sulfate 2-20 WASTE: F/P l 08:40: - Sink; E Constantia - [facility] Magnesium 0 No Notes: Memori a Sulfate 2-20 WASTE: F/P l 08:40: - Sink; E Constantia - [facility] Magnesium No Notes: Memori a Sulfate 2-20 WASTE: F/P l 08:40: - Sink; E Syed - [facility] Trash [facility] Calcium 0 No 500 mL, Memoria Chloride 2-20 500 ml/hr, l 0.0014 07:53: Infuse Syed MEQ/ML / 00 Over: 1 Potassium hr, Route: Chloride IV, 500, 0.004 Drug form: MEQ/ML / INJ, ONCE, Sodium Priority: Chloride STAT, 0.103 Dosing MEQ/ML / Weight Sodium 54.682 kg, Lactate Start 0.028 date: MEQ/ML 12/31/21 Injectable 1:53:00 Solution CATH LAB RADIOLOGICAL TECHNOLOGIST, Stop date: 12/31/21 1:53:00 CATH LAB RADIOLOGICAL TECHNOLOGIST, 0 Calcium 2021-0 No 500 mL, Memoria Chloride 2-20 500 ml/hr, l 0.0014 07:53: Infuse Constantia MEQ/ML / 00 Over: 1 Potassium hr, Route: Chloride IV, 500, 0.004 Drug form: MEQ/ML / INJ, ONCE, Sodium Priority: Chloride STAT, 0.103 Dosing MEQ/ML / Weight Sodium 54.682 kg, Lactate Start 0.028 date: MEQ/ML 12/31/21 Injectable 1:53:00 Solution CATH LAB RADIOLOGICAL TECHNOLOGIST, Stop date: 12/31/21 1:53:00 CATH LAB RADIOLOGICAL TECHNOLOGIST, 0 Calcium 2021-0 No 500 mL, Memoria Chloride 2-20 500 ml/hr, l 0.0014 07:53: Infuse Syed MEQ/ML / 00 Over: 1 Potassium hr, Route: Chloride IV, 500, 0.004 Drug form: MEQ/ML / INJ, ONCE, Sodium Priority: Chloride STAT, 0.103 Dosing MEQ/ML / Weight Sodium 54.682 kg, Lactate Start 0.028 date: MEQ/ML 12/31/21 Injectable 1:53:00 Solution CATH LAB RADIOLOGICAL TECHNOLOGIST, Stop date: 12/31/21 1:53:00 CATH LAB RADIOLOGICAL TECHNOLOGIST, 0 Calcium 2022-0 No 500 mL, Memoria Chloride 2-20 500 ml/hr, l 0.0014 07:53: Infuse Syed MEQ/ML / 00 Over: 1 Potassium hr, Route: Chloride IV, 500, 0.004 Drug form: MEQ/ML / INJ, ONCE, Sodium Priority: Chloride STAT, 0.103 Dosing MEQ/ML / Weight Sodium 54.682 kg, Lactate Start 0.028 date: MEQ/ML 12/31/21 Injectable 1:53:00 Solution CATH LAB RADIOLOGICAL TECHNOLOGIST, Stop date: 12/31/21 1:53:00 CATH LAB RADIOLOGICAL TECHNOLOGIST, 0 Calcium 2022-0 No 500 mL, Memoria Chloride 2-20 500 ml/hr, l 0.0014 07:53: Infuse Constantia MEQ/ML / 00 Over: 1 Potassium hr, Route: Chloride IV, 500, 0.004 Drug form: MEQ/ML / INJ, ONCE, Sodium Priority: Chloride STAT, 0.103 Dosing MEQ/ML / Weight Sodium 54.682 kg, Lactate Start 0.028 date: MEQ/ML 12/31/21 Injectable 1:53:00 Solution CATH LAB RADIOLOGICAL TECHNOLOGIST, Stop date: 12/31/21 1:53:00 CATH LAB RADIOLOGICAL TECHNOLOGIST, 0 Calcium 2022-0 No 500 mL, Memoria Chloride 2-20 500 ml/hr, l 0.0014 07:53: Infuse Constantia MEQ/ML / 00 Over: 1 Potassium hr, Route: Chloride IV, 500, 0.004 Drug form: MEQ/ML / INJ, ONCE, Sodium Priority: Chloride STAT, 0.103 Dosing MEQ/ML / Weight Sodium 54.682 kg, Lactate Start 0.028 date: MEQ/ML 12/31/21 Injectable 1:53:00 Solution CATH LAB RADIOLOGICAL TECHNOLOGIST, Stop date: 12/31/21 1:53:00 CATH LAB RADIOLOGICAL TECHNOLOGIST, 0 Calcium 2022-0 No 500 mL, Memoria Chloride 2-20 500 ml/hr, l 0.0014 07:53: Infuse Constantia MEQ/ML / 00 Over: 1 Potassium hr, Route: Chloride IV, 500, 0.004 Drug form: MEQ/ML / INJ, ONCE, Sodium Priority: Chloride STAT, 0.103 Dosing MEQ/ML / Weight Sodium 54.682 kg, Lactate Start 0.028 date: MEQ/ML 12/31/21 Injectable 1:53:00 Solution CATH LAB RADIOLOGICAL TECHNOLOGIST, Stop date: 12/31/21 1:53:00 CATH LAB RADIOLOGICAL TECHNOLOGIST, 0 Calcium 2022-0 No 500 mL, Memoria Chloride 2-20 500 ml/hr, l 0.0014 07:53: Infuse Constantia MEQ/ML / 00 Over: 1 Potassium hr, Route: Chloride IV, 500, 0.004 Drug form: MEQ/ML / INJ, ONCE, Sodium Priority: Chloride STAT, 0.103 Dosing MEQ/ML / Weight Sodium 54.682 kg, Lactate Start 0.028 date: MEQ/ML 12/31/21 Injectable 1:53:00 Solution CATH LAB RADIOLOGICAL TECHNOLOGIST, Stop date: 12/31/21 1:53:00 CATH LAB RADIOLOGICAL TECHNOLOGIST, 0 Calcium 2022-0 No 500 mL, Memoria Chloride 2-20 500 ml/hr, l 0.0014 07:53: Infuse Syed MEQ/ML / 00 Over: 1 Potassium hr, Route: Chloride IV, 500, 0.004 Drug form: MEQ/ML / INJ, ONCE, Sodium Priority: Chloride STAT, 0.103 Dosing MEQ/ML / Weight Sodium 54.682 kg, Lactate Start 0.028 date: MEQ/ML 12/31/21 Injectable 1:53:00 Solution CATH LAB RADIOLOGICAL TECHNOLOGIST, Stop date: 12/31/21 1:53:00 CATH LAB RADIOLOGICAL TECHNOLOGIST, 0 Calcium 2022-0 No 500 mL, Memoria Chloride 2-20 500 ml/hr, l 0.0014 07:53: Infuse Syed MEQ/ML / 00 Over: 1 Potassium hr, Route: Chloride IV, 500, 0.004 Drug form: MEQ/ML / INJ, ONCE, Sodium Priority: Chloride STAT, 0.103 Dosing MEQ/ML / Weight Sodium 54.682 kg, Lactate Start 0.028 date: MEQ/ML 12/31/21 Injectable 1:53:00 Solution CATH LAB RADIOLOGICAL TECHNOLOGIST, Stop date: 12/31/21 1:53:00 CATH LAB RADIOLOGICAL TECHNOLOGIST, 0 Calcium 2022-0 No 500 mL, Memoria Chloride 2-20 500 ml/hr, l 0.0014 07:53: Infuse Constantia MEQ/ML / 00 Over: 1 Potassium hr, Route: Chloride IV, 500, 0.004 Drug form: MEQ/ML / INJ, ONCE, Sodium Priority: Chloride STAT, 0.103 Dosing MEQ/ML / Weight Sodium 54.682 kg, Lactate Start 0.028 date: MEQ/ML 12/31/21 Injectable 1:53:00 Solution CATH [facility] RADIOLOGICAL TECHNOLOGIST, Stop date: 12/31/21 1:53:00 CATH LAB RADIOLOGICAL TECHNOLOGIST, 0 Calcium 2022-0 No 500 mL, Memoria Chloride 2-20 500 ml/hr, l 0.0014 07:53: Infuse Syed MEQ/ML / 00 Over: 1 Potassium hr, Route: Chloride IV, 500, 0.004 Drug form: MEQ/ML / INJ, ONCE, Sodium Priority: Chloride STAT, 0.103 Dosing MEQ/ML / Weight Sodium 54.682 kg, Lactate Start 0.028 date: MEQ/ML 12/31/21 Injectable 1:53:00 Solution CATH [facility] RADIOLOGICAL TECHNOLOGIST, Stop date: 12/31/21 1:53:00 CATH LAB RADIOLOGICAL TECHNOLOGIST, 0 Calcium 2022-0 No 500 mL, Memoria Chloride 2-20 500 ml/hr, l 0.0014 06:28: Infuse Constantia MEQ/ML / 00 Over: 1 Potassium hr, Route: Chloride IV, 500, 0.004 Drug form: MEQ/ML / INJ, ONCE, Sodium Dosing Chloride Weight 0.103 54.682 kg, MEQ/ML / Start Sodium date: Lactate 12/31/21 0.028 0:28:00 MEQ/ML CATH LAB RADIOLOGICAL TECHNOLOGIST, Stop Injectable date: Solution 12/31/21 0:28:00 CATH LAB RADIOLOGICAL TECHNOLOGIST, 0 Calcium 2022-0 No 500 mL, Memoria Chloride 2-20 500 ml/hr, l 0.0014 06:28: Infuse Constantia MEQ/ML / 00 Over: 1 Potassium hr, Route: Chloride IV, 500, 0.004 Drug form: MEQ/ML / INJ, ONCE, Sodium Dosing Chloride Weight 0.103 54.682 kg, MEQ/ML / Start Sodium date: Lactate 12/31/21 0.028 0:28:00 MEQ/ML CATH LAB RADIOLOGICAL TECHNOLOGIST, Stop Injectable date: Solution 12/31/21 0:28:00 CATH LAB RADIOLOGICAL TECHNOLOGIST, 0 Calcium 2022-0 No 500 mL, Memoria Chloride 2-20 500 ml/hr, l 0.0014 06:28: Infuse Constantia MEQ/ML / 00 Over: 1 Potassium hr, Route: Chloride IV, 500, 0.004 Drug form: MEQ/ML / INJ, ONCE, Sodium Dosing Chloride Weight 0.103 54.682 kg, MEQ/ML / Start Sodium date: Lactate 12/31/21 0.028 0:28:00 MEQ/ML CATH LAB RADIOLOGICAL TECHNOLOGIST, Stop Injectable date: Solution 12/31/21 0:28:00 CATH LAB RADIOLOGICAL TECHNOLOGIST, 0 Calcium 2022-0 No 500 mL, Memoria Chloride 2-20 500 ml/hr, l 0.0014 06:28: Infuse Constantia MEQ/ML / 00 Over: 1 Potassium hr, Route: Chloride IV, 500, 0.004 Drug form: MEQ/ML / INJ, ONCE, Sodium Dosing Chloride Weight 0.103 54.682 kg, MEQ/ML / Start Sodium date: Lactate 12/31/21 0.028 0:28:00 MEQ/ML CATH LAB RADIOLOGICAL TECHNOLOGIST, Stop Injectable date: Solution 12/31/21 0:28:00 CATH LAB RADIOLOGICAL TECHNOLOGIST, 0 Calcium 2022-0 No 500 mL, Memoria Chloride 2-20 500 ml/hr, l 0.0014 06:28: Infuse Syed MEQ/ML / 00 Over: 1 Potassium hr, Route: Chloride IV, 500, 0.004 Drug form: MEQ/ML / INJ, ONCE, Sodium Dosing Chloride Weight 0.103 54.682 kg, MEQ/ML / Start Sodium date: Lactate 12/31/21 0.028 0:28:00 MEQ/ML CATH LAB RADIOLOGICAL TECHNOLOGIST, Stop Injectable date: Solution 12/31/21 0:28:00 CATH LAB RADIOLOGICAL TECHNOLOGIST, 0 Calcium 2022-0 No 500 mL, Memoria Chloride 2-20 500 ml/hr, l 0.0014 06:28: Infuse Syed MEQ/ML / 00 Over: 1 Potassium hr, Route: Chloride IV, 500, 0.004 Drug form: MEQ/ML / INJ, ONCE, Sodium Dosing Chloride Weight 0.103 54.682 kg, MEQ/ML / Start Sodium date: Lactate 12/31/21 0.028 0:28:00 MEQ/ML CATH LAB RADIOLOGICAL TECHNOLOGIST, Stop Injectable date: Solution 12/31/21 0:28:00 CATH LAB RADIOLOGICAL TECHNOLOGIST, 0 Calcium 2022-0 No 500 mL, Memoria Chloride 2-20 500 ml/hr, l 0.0014 06:28: Infuse Constantia MEQ/ML / 00 Over: 1 Potassium hr, Route: Chloride IV, 500, 0.004 Drug form: MEQ/ML / INJ, ONCE, Sodium Dosing Chloride Weight 0.103 54.682 kg, MEQ/ML / Start Sodium date: Lactate 12/31/21 0.028 0:28:00 MEQ/ML CATH LAB RADIOLOGICAL TECHNOLOGIST, Stop Injectable date: Solution 12/31/21 0:28:00 CATH LAB RADIOLOGICAL TECHNOLOGIST, 0 Calcium 2022-0 No 500 mL, Memoria Chloride 2-20 500 ml/hr, l 0.0014 06:28: Infuse Constantia MEQ/ML / 00 Over: 1 Potassium hr, Route: Chloride IV, 500, 0.004 Drug form: MEQ/ML / INJ, ONCE, Sodium Dosing Chloride Weight 0.103 54.682 kg, MEQ/ML / Start Sodium date: Lactate 12/31/21 0.028 0:28:00 MEQ/ML CATH LAB RADIOLOGICAL TECHNOLOGIST, Stop Injectable date: Solution 12/31/21 0:28:00 CATH LAB RADIOLOGICAL TECHNOLOGIST, 0 Calcium 2022-0 No 500 mL, Memoria Chloride 2-20 500 ml/hr, l 0.0014 06:28: Infuse Syed MEQ/ML / 00 Over: 1 Potassium hr, Route: Chloride IV, 500, 0.004 Drug form: MEQ/ML / INJ, ONCE, Sodium Dosing Chloride Weight 0.103 54.682 kg, MEQ/ML / Start Sodium date: Lactate 12/31/21 0.028 0:28:00 MEQ/ML CATH LAB RADIOLOGICAL TECHNOLOGIST, Stop Injectable date: Solution 12/31/21 0:28:00 CATH LAB RADIOLOGICAL TECHNOLOGIST, 0 Calcium 2022-0 No 500 mL, Memoria Chloride 2-20 500 ml/hr, l 0.0014 06:28: Infuse Syed MEQ/ML / 00 Over: 1 Potassium hr, Route: Chloride IV, 500, 0.004 Drug form: MEQ/ML / INJ, ONCE, Sodium Dosing Chloride Weight 0.103 54.682 kg, MEQ/ML / Start Sodium date: Lactate 12/31/21 0.028 0:28:00 MEQ/ML CATH LAB RADIOLOGICAL TECHNOLOGIST, Stop Injectable date: Solution 12/31/21 0:28:00 CATH LAB RADIOLOGICAL TECHNOLOGIST, 0 Calcium 2022-0 No 500 mL, Memoria Chloride 2-20 500 ml/hr, l 0.0014 06:28: Infuse Syed MEQ/ML / 00 Over: 1 Potassium hr, Route: Chloride IV, 500, 0.004 Drug form: MEQ/ML / INJ, ONCE, Sodium Dosing Chloride Weight 0.103 54.682 kg, MEQ/ML / Start Sodium date: Lactate 12/31/21 0.028 0:28:00 MEQ/ML CATH LAB RADIOLOGICAL TECHNOLOGIST, Stop Injectable date: Solution 12/31/21 0:28:00 CATH LAB RADIOLOGICAL TECHNOLOGIST, 0 Calcium 2022-0 No 500 mL, Memoria Chloride 2-20 500 ml/hr, l 0.0014 06:28: Infuse Constantia MEQ/ML / 00 Over: 1 Potassium hr, Route: Chloride IV, 500, 0.004 Drug form: MEQ/ML / INJ, ONCE, Sodium Dosing Chloride Weight 0.103 54.682 kg, MEQ/ML / Start Sodium date: Lactate 12/31/21 0.028 0:28:00 MEQ/ML CATH LAB RADIOLOGICAL TECHNOLOGIST, Stop Injectable date: Solution 12/31/21 0:28:00 CATH LAB RADIOLOGICAL TECHNOLOGIST, 0 Calcium 2022-0 No 1,000 mL, Memor ia Chloride 2-20 1,000 l 0.0014 06:11: ml/hr, Syed MEQ/ML / 00 Infuse Potassium Over: 1 Chloride hr, Route: 0.004 IV, 1,000, MEQ/ML / Drug form: Sodium INJ, ONCE, Chloride Priority: 0.103 STAT, MEQ/ML / Dosing Sodium Weight Lactate 54.682 kg, 0.028 Start MEQ/ML date: Injectable 12/31/21 Solution 0:11:00 CATH LAB RADIOLOGICAL TECHNOLOGIST, Stop date: 12/31/21 0:11:00 CATH LAB RADIOLOGICAL TECHNOLOGIST, 0 Calcium 2022-0 No 1,000 mL, Memor ia Chloride 2-20 1,000 l 0.0014 06:11: ml/hr, Syed MEQ/ML / 00 Infuse Potassium Over: 1 Chloride hr, Route: 0.004 IV, 1,000, MEQ/ML / Drug form: Sodium INJ, ONCE, Chloride Priority: 0.103 STAT, MEQ/ML / Dosing Sodium Weight Lactate 54.682 kg, 0.028 Start MEQ/ML date: Injectable 12/31/21 Solution 0:11:00 CATH LAB RADIOLOGICAL TECHNOLOGIST, Stop date: 12/31/21 0:11:00 CATH LAB RADIOLOGICAL TECHNOLOGIST, 0 Calcium 2022-0 No 1,000 mL, Memor ia Chloride 2-20 1,000 l 0.0014 06:11: ml/hr, Constantia MEQ/ML / 00 Infuse Potassium Over: 1 Chloride hr, Route: 0.004 IV, 1,000, MEQ/ML / Drug form: Sodium INJ, ONCE, Chloride Priority: 0.103 STAT, MEQ/ML / Dosing Sodium Weight Lactate 54.682 kg, 0.028 Start MEQ/ML date: Injectable 12/31/21 Solution 0:11:00 CATH LAB RADIOLOGICAL TECHNOLOGIST, Stop date: 12/31/21 0:11:00 CATH LAB RADIOLOGICAL TECHNOLOGIST, 0 Calcium 2022-0 No 1,000 mL, Memor ia Chloride 2-20 1,000 l 0.0014 06:11: ml/hr, Constantia MEQ/ML / 00 Infuse Potassium Over: 1 Chloride hr, Route: 0.004 IV, 1,000, MEQ/ML / Drug form: Sodium INJ, ONCE, Chloride Priority: 0.103 STAT, MEQ/ML / Dosing Sodium Weight Lactate 54.682 kg, 0.028 Start MEQ/ML date: Injectable 12/31/21 Solution 0:11:00 CATH LAB RADIOLOGICAL TECHNOLOGIST, Stop date: 12/31/21 0:11:00 CATH LAB RADIOLOGICAL TECHNOLOGIST, 0 Calcium 2022-0 No 1,000 mL, Memor ia Chloride 2-20 1,000 l 0.0014 06:11: ml/hr, Syed MEQ/ML / 00 Infuse Potassium Over: 1 Chloride hr, Route: 0.004 IV, 1,000, MEQ/ML / Drug form: Sodium INJ, ONCE, Chloride Priority: 0.103 STAT, MEQ/ML / Dosing Sodium Weight Lactate 54.682 kg, 0.028 Start MEQ/ML date: Injectable 12/31/21 Solution 0:11:00 CATH LAB RADIOLOGICAL TECHNOLOGIST, Stop date: 12/31/21 0:11:00 CATH LAB RADIOLOGICAL TECHNOLOGIST, 0 Calcium 2022-0 No 1,000 mL, Memor ia Chloride 2-20 1,000 l 0.0014 06:11: ml/hr, Constantia MEQ/ML / 00 Infuse Potassium Over: 1 Chloride hr, Route: 0.004 IV, 1,000, MEQ/ML / Drug form: Sodium INJ, ONCE, Chloride Priority: 0.103 STAT, MEQ/ML / Dosing Sodium Weight Lactate 54.682 kg, 0.028 Start MEQ/ML date: Injectable 12/31/21 Solution 0:11:00 CATH LAB RADIOLOGICAL TECHNOLOGIST, Stop date: 12/31/21 0:11:00 CATH LAB RADIOLOGICAL TECHNOLOGIST, 0 Calcium 2022-0 No 1,000 mL, Memor ia Chloride 2-20 1,000 l 0.0014 06:11: ml/hr, Constantia MEQ/ML / 00 Infuse Potassium Over: 1 Chloride hr, Route: 0.004 IV, 1,000, MEQ/ML / Drug form: Sodium INJ, ONCE, Chloride Priority: 0.103 STAT, MEQ/ML / Dosing Sodium Weight Lactate 54.682 kg, 0.028 Start MEQ/ML date: Injectable 12/31/21 Solution 0:11:00 CATH LAB RADIOLOGICAL TECHNOLOGIST, Stop date: 12/31/21 0:11:00 CATH LAB RADIOLOGICAL TECHNOLOGIST, 0 Calcium 2022-0 No 1,000 mL, Memor ia Chloride 2-20 1,000 l 0.0014 06:11: ml/hr, Syed MEQ/ML / 00 Infuse Potassium Over: 1 Chloride hr, Route: 0.004 IV, 1,000, MEQ/ML / Drug form: Sodium INJ, ONCE, Chloride Priority: 0.103 STAT, MEQ/ML / Dosing Sodium Weight Lactate 54.682 kg, 0.028 Start MEQ/ML date: Injectable 12/31/21 Solution 0:11:00 CATH LAB RADIOLOGICAL TECHNOLOGIST, Stop date: 12/31/21 0:11:00 CATH LAB RADIOLOGICAL TECHNOLOGIST, 0 Calcium 2022-0 No 1,000 mL, Memor ia Chloride 2-20 1,000 l 0.0014 06:11: ml/hr, Syed MEQ/ML / 00 Infuse Potassium Over: 1 Chloride hr, Route: 0.004 IV, 1,000, MEQ/ML / Drug form: Sodium INJ, ONCE, Chloride Priority: 0.103 STAT, MEQ/ML / Dosing Sodium Weight Lactate 54.682 kg, 0.028 Start MEQ/ML date: Injectable 12/31/21 Solution 0:11:00 CATH LAB RADIOLOGICAL TECHNOLOGIST, Stop date: 12/31/21 0:11:00 CATH LAB RADIOLOGICAL TECHNOLOGIST, 0 Calcium 2022-0 No 1,000 mL, Memor ia Chloride 2-20 1,000 l 0.0014 06:11: ml/hr, Syed MEQ/ML / 00 Infuse Potassium Over: 1 Chloride hr, Route: 0.004 IV, 1,000, MEQ/ML / Drug form: Sodium INJ, ONCE, Chloride Priority: 0.103 STAT, MEQ/ML / Dosing Sodium Weight Lactate 54.682 kg, 0.028 Start MEQ/ML date: Injectable 12/31/21 Solution 0:11:00 CATH LAB RADIOLOGICAL TECHNOLOGIST, Stop date: 12/31/21 0:11:00 CATH LAB RADIOLOGICAL TECHNOLOGIST, 0 Calcium No 1,000 mL, Memor ia Chloride 2-20 1,000 l 0.0014 06:11: ml/hr, Syed MEQ/ML / 00 Infuse Potassium Over: 1 Chloride hr, Route: 0.004 IV, 1,000, MEQ/ML / Drug form: Sodium INJ, ONCE, Chloride Priority: 0.103 STAT, MEQ/ML / Dosing Sodium Weight Lactate 54.682 kg, 0.028 Start MEQ/ML date: Injectable 12/31/21 Solution 0:11:00 CATH LAB RADIOLOGICAL TECHNOLOGIST, Stop date: 12/31/21 0:11:00 CATH LAB RADIOLOGICAL TECHNOLOGIST, 0 Calcium No 1,000 mL, Memor ia Chloride 2-20 1,000 l 0.0014 06:11: ml/hr, Syed MEQ/ML / 00 Infuse Potassium Over: 1 Chloride hr, Route: 0.004 IV, 1,000, MEQ/ML / Drug form: Sodium INJ, ONCE, Chloride Priority: 0.103 STAT, MEQ/ML / Dosing Sodium Weight Lactate 54.682 kg, 0.028 Start MEQ/ML date: Injectable 12/31/21 Solution 0:11:00 CATH LAB RADIOLOGICAL TECHNOLOGIST, Stop date: 12/31/21 0:11:00 CATH LAB RADIOLOGICAL TECHNOLOGIST, 0 atorvastati No Notes: Ervin marybel n 2-20 (Same As: l 03:00: Lipitor) atorvastati No Notes: Ervin marybel n 2-20 (Same As: l 03:00: Lipitor) atorvastati No Notes: Ervin marybel n 2-20 (Same As: l 03:00: Lipitor) atorvastati No Notes: Ervin marybel n 2-20 (Same As: l 03:00: Lipitor) atorvastati No Notes: Erivn marybel n 2-20 (Same As: l 03:00: Lipitor) atorvastati No Notes: Ervin marybel n 2-20 (Same As: l 03:00: Lipitor) atorvastati No Notes: Ervin marybel n 2-20 (Same As: l 03:00: Lipitor) atorvastati No Notes: Ervin marybel n 2-20 (Same As: l 03:00: Lipitor) atorvastati No Notes: Ervin marybel n 2-20 (Same As: l 03:00: Lipitor) atorvastati No Notes: Ervin marybel n 2-20 (Same As: l 03:00: Lipitor) atorvastati No Notes: Ervin marybel n 2-20 (Same As: l 03:00: Lipitor) atorvastati No Notes: Ervin marybel n 2-20 (Same As: l 03:00: Lipitor) sugammadex No Route: IV, M emoria (ANES) 2-20 Drug form: l 02:37: SOLNSyed 00 ONCE, Stop date: 12/30/21 20:37:00 CATH LAB RADIOLOGICAL TECHNOLOGIST sugammadex 202-0 No Route: IV, M emoria (ANES) 2-20 Drug form: l 02:37: SOLSyed Lares 00 ONCE, Stop date: 12/30/21 20:37:00 CATH LAB RADIOLOGICAL TECHNOLOGIST sugammadex 2022-0 No Route: IV, M emoria (ANES) 2-20 Drug form: l 02:37: SOLSyed Lares 00 ONCE, Stop date: 12/30/21 20:37:00 CATH LAB RADIOLOGICAL TECHNOLOGIST sugammadex 202-0 No Route: IV, M emoria (ANES) 2-20 Drug form: l 02:37: SOLN Constantia 00 ONCE, Stop date: 12/30/21 20:37:00 CATH LAB RADIOLOGICAL TECHNOLOGIST sugammadex 202-0 No Route: IV, M emoria (ANES) 2-20 Drug form: l 02:37: SOLN Constantia 00 ONCE, Stop date: 12/30/21 20:37:00 CATH LAB RADIOLOGICAL TECHNOLOGIST sugammadex 2022-0 No Route: IV, M emoria (ANES) 2-20 Drug form: l 02:37: SOLN Syed 00 ONCE, Stop date: 12/30/21 20:37:00 CATH LAB RADIOLOGICAL TECHNOLOGIST sugammadex 2022-0 No Route: IV, M emoria (ANES) 2-20 Drug form: l 02:37: SOLN, Constantia 00 ONCE, Stop date: 12/30/21 20:37:00 CATH LAB RADIOLOGICAL TECHNOLOGIST sugammadex 2022-0 No Route: IV, M emoria (ANES) 2-20 Drug form: l 02:37: SOLN, Constantia 00 ONCE, Stop date: 12/30/21 20:37:00 CATH LAB RADIOLOGICAL TECHNOLOGIST sugammadex 2022-0 No Route: IV, M emoria (ANES) 2-20 Drug form: l 02:37: SOLN, Syed 00 ONCE, Stop date: 12/30/21 20:37:00 CATH LAB RADIOLOGICAL TECHNOLOGIST sugammadex 2022-0 No Route: IV, M emoria (ANES) 2-20 Drug form: l 02:37: SOLSyed Lares ONCE, Stop date: 12/30/21 20:37:00 CATH LAB RADIOLOGICAL TECHNOLOGIST sugammadex 2022-0 No Route: IV, M emoria (ANES) 2-20 Drug form: l 02:37: SOLN, Constantia 00 ONCE, Stop date: 12/30/21 20:37:00 CATH LAB RADIOLOGICAL TECHNOLOGIST sugammadex 2022-0 No Route: IV, M emoria (ANES) 2-20 Drug form: l 02:37: SOLN, Syed 00 ONCE, Stop date: 12/30/21 20:37:00 CATH LAB RADIOLOGICAL TECHNOLOGIST ondansetron 2022-0 No Route: IV, Memoria (ANES) 2-20 Drug form: l 01:20: INJ, ONCE, Constantia 00 Stop date: 12/30/21 19:20:00 CATH LAB RADIOLOGICAL TECHNOLOGIST ondansetron 2022-0 No Route: IV, Memoria (ANES) 2-20 Drug form: l 01:20: INJ, ONCE, Syed Stop date: 12/30/21 19:20:00 CATH LAB RADIOLOGICAL TECHNOLOGIST ondansetron 2022-0 No Route: IV, Memoria (ANES) 2-20 Drug form: l 01:20: INJ, ONCE, Syed 00 Stop date: 12/30/21 19:20:00 CATH LAB RADIOLOGICAL TECHNOLOGIST ondansetron 2022-0 No Route: IV, Memoria (ANES) 2-20 Drug form: l 01:20: INJ, ONCE, Stop date: 12/30/21 19:20:00 CATH LAB RADIOLOGICAL TECHNOLOGIST ondansetron 2021-0 No Route: IV, Memoria (ANES) 2-20 Drug form: l 01:20: INJ, ONCE, Stop date: 12/30/21 19:20:00 CATH LAB RADIOLOGICAL TECHNOLOGIST ondansetron 2021-0 No Route: IV, Memoria (ANES) 2-20 Drug form: l 01:20: INJ, ONCE, Stop date: 12/30/21 19:20:00 CATH LAB RADIOLOGICAL TECHNOLOGIST ondansetron 2021-0 No Route: IV, Memoria (ANES) 2-20 Drug form: l 01:20: INJ, ONCE, Stop date: 12/30/21 19:20:00 CATH LAB RADIOLOGICAL TECHNOLOGIST ondansetron 2021-0 No Route: IV, Memoria (ANES) 2-20 Drug form: l 01:20: INJ, ONCE, Stop date: 12/30/21 19:20:00 CATH LAB RADIOLOGICAL TECHNOLOGIST ondansetron 2021-0 No Route: IV, Memoria (ANES) 2-20 Drug form: l 01:20: INJ, ONCE, Stop date: 12/30/21 19:20:00 CATH LAB RADIOLOGICAL TECHNOLOGIST ondansetron 2021-0 No Route: IV, Memoria (ANES) 2-20 Drug form: l 01:20: INJ, ONCE, Stop date: 12/30/21 19:20:00 CATH LAB RADIOLOGICAL TECHNOLOGIST ondansetron 2021-0 No Route: IV, Memoria (ANES) 2-20 Drug form: l 01:20: INJ, ONCE, Stop date: 12/30/21 19:20:00 CATH LAB RADIOLOGICAL TECHNOLOGIST ondansetron 2021-0 No Route: IV, Memoria (ANES) 2-20 Drug form: l 01:20: INJ, ONCE, Stop date: 12/30/21 19:20:00 CATH LAB RADIOLOGICAL TECHNOLOGIST tranexamic 2021-0 No Route: IV, M emoria acid (ANES) 2- Drug form: l 23:58: INJ, ONCE, Stop date: 12/30/21 17:58:00 CATH LAB RADIOLOGICAL TECHNOLOGIST tranexamic 202-0 No Route: IV, M emoria acid (ANES) 2-19 Drug form: l 23:58: INJ, ONCE, Stop date: 12/30/21 17:58:00 CATH LAB RADIOLOGICAL TECHNOLOGIST tranexamic 2021-0 No Route: IV, M emoria acid (ANES) 2-19 Drug form: l 23:58: INJ, ONCE, Stop date: 12/30/21 17:58:00 CATH LAB RADIOLOGICAL TECHNOLOGIST tranexamic 2021-0 No Route: IV, M emoria acid (ANES) 2-19 Drug form: l 23:58: INJ, ONCE, Stop date: 12/30/21 17:58:00 CATH LAB RADIOLOGICAL TECHNOLOGIST tranexamic 2021-0 No Route: IV, M emoria acid (ANES) 2-19 Drug form: l 23:58: INJ, ONCE, Stop date: 12/30/21 17:58:00 CATH LAB RADIOLOGICAL TECHNOLOGIST tranexamic 2021-0 No Route: IV, M emoria acid (ANES) 2-19 Drug form: l 23:58: INJ, ONCE, Stop date: 12/30/21 17:58:00 CATH LAB RADIOLOGICAL TECHNOLOGIST tranexamic 2021-0 No Route: IV, M emoria acid (ANES) 2-19 Drug form: l 23:58: INJ, ONCE, Stop date: 12/30/21 17:58:00 CATH LAB RADIOLOGICAL TECHNOLOGIST tranexamic 2021-0 No Route: IV, M emoria acid (ANES) 2-19 Drug form: l 23:58: INJ, ONCE, Stop date: 12/30/21 17:58:00 CATH LAB RADIOLOGICAL TECHNOLOGIST tranexamic 2021-0 No Route: IV, M emoria acid (ANES) 2-19 Drug form: l 23:58: INJ, ONCE, Stop date: 12/30/21 17:58:00 CATH LAB RADIOLOGICAL TECHNOLOGIST tranexamic 2021-0 No Route: IV, M emoria acid (ANES) 2-19 Drug form: l 23:58: INJ, ONCE, Stop date: 12/30/21 17:58:00 CATH LAB RADIOLOGICAL TECHNOLOGIST tranexamic 2021-0 No Route: IV, M emoria acid (ANES) 2-19 Drug form: l 23:58: INJ, ONCE, Stop date: 12/30/21 17:58:00 CATH LAB RADIOLOGICAL TECHNOLOGIST tranexamic 0 No Route: IV, M emoria acid (ANES) 2-19 Drug form: l 23:58: INJ, ONCE, Stop date: 12/30/21 17:58:00 CATH LAB RADIOLOGICAL TECHNOLOGIST calcium 0 No Route: IV, Ervin marybel chloride 2-19 Drug form: l (ANES) 23:28: INJ, ONCE, Stop date: 12/30/21 17:28:00 CATH LAB RADIOLOGICAL TECHNOLOGIST calcium 0 No Route: IV, Ervin marybel chloride 2-19 Drug form: l (ANES) 23:28: INJ, ONCE, Stop date: 12/30/21 17:28:00 CATH LAB RADIOLOGICAL TECHNOLOGIST calcium 2021-0 No Route: IV, Ervin marybel chloride 2-19 Drug form: l (ANES) 23:28: INJ, ONCE, Stop date: 12/30/21 17:28:00 CATH LAB RADIOLOGICAL TECHNOLOGIST calcium 2021-0 No Route: IV, Ervin marybel chloride 2-19 Drug form: l (ANES) 23:28: INJ, ONCE, Stop date: 12/30/21 17:28:00 CATH LAB RADIOLOGICAL TECHNOLOGIST calcium 2021-0 No Route: IV, Ervin marybel chloride 2-19 Drug form: l (ANES) 23:28: INJ, ONCE, Stop date: 12/30/21 17:28:00 CATH LAB RADIOLOGICAL TECHNOLOGIST calcium 2021-0 No Route: IV, Ervin marybel chloride 2-19 Drug form: l (ANES) 23:28: INJ, ONCE, Allyn Stop date: 12/30/21 17:28:00 CATH LAB RADIOLOGICAL TECHNOLOGIST calcium 2021-0 No Route: IV, Ervin marybel chloride 2-19 Drug form: l (ANES) 23:28: INJ, ONCE, Stop date: 12/30/21 17:28:00 CATH LAB RADIOLOGICAL TECHNOLOGIST calcium 2021-0 No Route: IV, Ervin marybel chloride 2-19 Drug form: l (ANES) 23:28: INJ, ONCE, Allyn Stop date: 12/30/21 17:28:00 CATH LAB RADIOLOGICAL TECHNOLOGIST calcium 2022-0 No Route: IV, Ervin marybel chloride 2-19 Drug form: l (ANES) 23:28: INJ, ONCE, Allyn nn Stop date: 12/30/21 17:28:00 CATH LAB RADIOLOGICAL TECHNOLOGIST calcium 2021-0 No Route: IV, Ervin marybel chloride 2-19 Drug form: l (ANES) 23:28: INJ, ONCE, Allyn Stop date: 12/30/21 17:28:00 CATH LAB RADIOLOGICAL TECHNOLOGIST calcium 2021-0 No Route: IV, Ervin marybel chloride 2-19 Drug form: l (ANES) 23:28: INJ, ONCE, Allyn Stop date: 12/30/21 17:28:00 CATH LAB RADIOLOGICAL TECHNOLOGIST calcium 2021-0 No Route: IV, Ervin marybel chloride 2-19 Drug form: l (ANES) 23:28: INJ, ONCE, Allyn Stop date: 12/30/21 17:28:00 CATH LAB RADIOLOGICAL TECHNOLOGIST vasopressin 2021-0 No Route: IV, Memoria (ANES) 2-19 Drug form: l 22:47: INJ, ONCE, Stop date: 12/30/21 16:47:00 CATH LAB RADIOLOGICAL TECHNOLOGIST vasopressin 2021-0 No Route: IV, Memoria (ANES) 2-19 Drug form: l 22:47: INJ, ONCE, Stop date: 12/30/21 16:47:00 CATH LAB RADIOLOGICAL TECHNOLOGIST vasopressin 2021-0 No Route: IV, Memoria (ANES) 2-19 Drug form: l 22:47: INJ, ONCE, Stop date: 12/30/21 16:47:00 CATH LAB RADIOLOGICAL TECHNOLOGIST vasopressin 2021-0 No Route: IV, Memoria (ANES) 2-19 Drug form: l 22:47: INJ, ONCE, Stop date: 12/30/21 16:47:00 CATH LAB RADIOLOGICAL TECHNOLOGIST vasopressin 2021-0 No Route: IV, Memoria (ANES) 2-19 Drug form: l 22:47: INJ, ONCE, Stop date: 12/30/21 16:47:00 CATH LAB RADIOLOGICAL TECHNOLOGIST vasopressin 2021-0 No Route: IV, Memoria (ANES) 2-19 Drug form: l 22:47: INJ, ONCE, Stop date: 12/30/21 16:47:00 CATH LAB RADIOLOGICAL TECHNOLOGIST vasopressin 2021-0 No Route: IV, Memoria (ANES) 2-19 Drug form: l 22:47: INJ, ONCE, Stop date: 12/30/21 16:47:00 CATH LAB RADIOLOGICAL TECHNOLOGIST vasopressin 2021-0 No Route: IV, Memoria (ANES) 2-19 Drug form: l 22:47: INJ, ONCE, Stop date: 12/30/21 16:47:00 CATH LAB RADIOLOGICAL TECHNOLOGIST vasopressin 2021-0 No Route: IV, Memoria (ANES) 2- Drug form: l 22:47: INJ, ONCE, Stop date: 12/30/21 16:47:00 CATH LAB RADIOLOGICAL TECHNOLOGIST vasopressin 2021-0 No Route: IV, Memoria (ANES) 2- Drug form: l 22:47: INJ, ONCE, Stop date: 12/30/21 16:47:00 CATH LAB RADIOLOGICAL TECHNOLOGIST vasopressin 2021-0 No Route: IV, Memoria (ANES) 2- Drug form: l 22:47: INJ, ONCE, Stop date: 12/30/21 16:47:00 CATH LAB RADIOLOGICAL TECHNOLOGIST vasopressin 0 No Route: IV, Memoria (ANES) 2- Drug form: l 22:47: INJ, ONCE, Stop date: 12/30/21 16:47:00 CATH LAB RADIOLOGICAL TECHNOLOGIST propofol 2021-0 No Route: IV, Mem oria (ANES) 2- Drug form: l 22:01: INJ, ONCE, Stop date: 12/30/21 16:01:00 CATH LAB RADIOLOGICAL TECHNOLOGIST rocuronium 2021-0 No Route: IV, M emoria (ANES) 2- Drug form: l 22:01: INJ, ONCE, Stop date: 12/30/21 16:01:00 CATH LAB RADIOLOGICAL TECHNOLOGIST fentaNYL 2021-0 No Route: IV, Mem oria (ANES) 2- Drug form: l 22:01: INJ, ONCE, Stop date: 12/30/21 16:01:00 CATH LAB RADIOLOGICAL TECHNOLOGIST ePHEDrine 2021-0 No Route: IV, Me moria (ANES) 2- Drug form: l 22:01: INJ, ONCE, Stop date: 12/30/21 16:01:00 CATH LAB RADIOLOGICAL TECHNOLOGIST propofol 2021-0 No Route: IV, Mem oria (ANES) 2- Drug form: l 22:01: INJ, ONCE, Stop date: 12/30/21 16:01:00 CATH LAB RADIOLOGICAL TECHNOLOGIST rocuronium 2022-0 No Route: IV, M emoria (ANES) 2-19 Drug form: l 22:01: INJ, ONCE, Stop date: 12/30/21 16:01:00 CATH LAB RADIOLOGICAL TECHNOLOGIST fentaNYL 2022-0 No Route: IV, Mem oria (ANES) 2-19 Drug form: l 22:01: INJ, ONCE, Stop date: 12/30/21 16:01:00 CATH LAB RADIOLOGICAL TECHNOLOGIST ePHEDrine 2022-0 No Route: IV, Me moria (ANES) 2-19 Drug form: l 22:01: INJ, ONCE, Stop date: 12/30/21 16:01:00 CATH LAB RADIOLOGICAL TECHNOLOGIST propofol 2022-0 No Route: IV, Mem oria (ANES) 2-19 Drug form: l 22:01: INJ, ONCE, Stop date: 12/30/21 16:01:00 CATH LAB RADIOLOGICAL TECHNOLOGIST rocuronium 2022-0 No Route: IV, M emoria (ANES) 2-19 Drug form: l 22:01: INJ, ONCE, Stop date: 12/30/21 16:01:00 CATH LAB RADIOLOGICAL TECHNOLOGIST fentaNYL 2022-0 No Route: IV, Mem oria (ANES) 2-19 Drug form: l 22:01: INJ, ONCE, Stop date: 12/30/21 16:01:00 CATH LAB RADIOLOGICAL TECHNOLOGIST ePHEDrine 2022-0 No Route: IV, Me moria (ANES) 2-19 Drug form: l 22:01: INJ, ONCE, Stop date: 12/30/21 16:01:00 CATH LAB RADIOLOGICAL TECHNOLOGIST propofol 2022-0 No Route: IV, Mem oria (ANES) 2-19 Drug form: l 22:01: INJ, ONCE, Stop date: 12/30/21 16:01:00 CATH LAB RADIOLOGICAL TECHNOLOGIST rocuronium 2022-0 No Route: IV, M emoria (ANES) 2-19 Drug form: l 22:01: INJ, ONCE, Stop date: 12/30/21 16:01:00 CATH LAB RADIOLOGICAL TECHNOLOGIST fentaNYL 2022-0 No Route: IV, Mem oria (ANES) 2-19 Drug form: l 22:01: INJ, ONCE, Stop date: 12/30/21 16:01:00 CATH LAB RADIOLOGICAL TECHNOLOGIST ePHEDrine 202-0 No Route: IV, Me moria (ANES) 2-19 Drug form: l 22:01: INJ, ONCE, Stop date: 12/30/21 16:01:00 CATH LAB RADIOLOGICAL TECHNOLOGIST propofol 2022-0 No Route: IV, Mem oria (ANES) 2-19 Drug form: l 22:01: INJ, ONCE, Stop date: 12/30/21 16:01:00 CATH LAB RADIOLOGICAL TECHNOLOGIST rocuronium 2022-0 No Route: IV, M emoria (ANES) 2-19 Drug form: l 22:01: INJ, ONCE, Stop date: 12/30/21 16:01:00 CATH LAB RADIOLOGICAL TECHNOLOGIST fentaNYL 2-0 No Route: IV, Mem oria (ANES) 2-19 Drug form: l 22:01: INJ, ONCE, Stop date: 12/30/21 16:01:00 CATH LAB RADIOLOGICAL TECHNOLOGIST ePHEDrine 2021-0 No Route: IV, Me moria (ANES) 2-19 Drug form: l 22:01: INJ, ONCE, Stop date: 12/30/21 16:01:00 CATH LAB RADIOLOGICAL TECHNOLOGIST propofol 2022-0 No Route: IV, Mem oria (ANES) 2-19 Drug form: l 22:01: INJ, ONCE, Stop date: 12/30/21 16:01:00 CATH LAB RADIOLOGICAL TECHNOLOGIST rocuronium 2022-0 No Route: IV, M emoria (ANES) 2-19 Drug form: l 22:01: INJ, ONCE, Stop date: 12/30/21 16:01:00 CATH LAB RADIOLOGICAL TECHNOLOGIST fentaNYL 2022-0 No Route: IV, Mem oria (ANES) 2-19 Drug form: l 22:01: INJ, ONCE, Stop date: 12/30/21 16:01:00 CATH LAB RADIOLOGICAL TECHNOLOGIST ePHEDrine 2022-0 No Route: IV, Me moria (ANES) 2-19 Drug form: l 22:01: INJ, ONCE, Stop date: 12/30/21 16:01:00 CATH LAB RADIOLOGICAL TECHNOLOGIST propofol 2022-0 No Route: IV, Mem oria (ANES) 2-19 Drug form: l 22:01: INJ, ONCE, Stop date: 12/30/21 16:01:00 CATH LAB RADIOLOGICAL TECHNOLOGIST rocuronium 2022-0 No Route: IV, M emoria (ANES) 2-19 Drug form: l 22:01: INJ, ONCE, Stop date: 12/30/21 16:01:00 CATH LAB RADIOLOGICAL TECHNOLOGIST fentaNYL 2022-0 No Route: IV, Mem oria (ANES) 2-19 Drug form: l 22:01: INJ, ONCE, Stop date: 12/30/21 16:01:00 CATH LAB RADIOLOGICAL TECHNOLOGIST ePHEDrine 2021-0 No Route: IV, Me moria (ANES) 2-19 Drug form: l 22:01: INJ, ONCE, Stop date: 12/30/21 16:01:00 CATH LAB RADIOLOGICAL TECHNOLOGIST propofol 2-0 No Route: IV, Mem oria (ANES) 2- Drug form: l 22:01: INJ, ONCE, Stop date: 12/30/21 16:01:00 CATH LAB RADIOLOGICAL TECHNOLOGIST rocuronium 2021-0 No Route: IV, M emoria (ANES) 2-19 Drug form: l 22:01: INJ, ONCE, Stop date: 12/30/21 16:01:00 CATH LAB RADIOLOGICAL TECHNOLOGIST fentaNYL 2-0 No Route: IV, Mem oria (ANES) 2- Drug form: l 22:01: INJ, ONCE, Stop date: 12/30/21 16:01:00 CATH LAB RADIOLOGICAL TECHNOLOGIST ePHEDrine 2022-0 No Route: IV, Me moria (ANES) 2-19 Drug form: l 22:01: INJ, ONCE, Stop date: 12/30/21 16:01:00 CATH LAB RADIOLOGICAL TECHNOLOGIST propofol 2-0 No Route: IV, Mem oria (ANES) 2-19 Drug form: l 22:01: INJ, ONCE, Stop date: 12/30/21 16:01:00 CATH LAB RADIOLOGICAL TECHNOLOGIST rocuronium 2022-0 No Route: IV, M emoria (ANES) 2-19 Drug form: l 22:01: INJ, ONCE, Stop date: 12/30/21 16:01:00 CATH LAB RADIOLOGICAL TECHNOLOGIST fentaNYL 2022-0 No Route: IV, Mem oria (ANES) 2-19 Drug form: l 22:01: INJ, ONCE, Stop date: 12/30/21 16:01:00 CATH LAB RADIOLOGICAL TECHNOLOGIST ePHEDrine 2021-0 No Route: IV, Me moria (ANES) 2-19 Drug form: l 22:01: INJ, ONCE, Stop date: 12/30/21 16:01:00 CATH LAB RADIOLOGICAL TECHNOLOGIST propofol 2-0 No Route: IV, Mem oria (ANES) 2-19 Drug form: l 22:01: INJ, ONCE, Stop date: 12/30/21 16:01:00 CATH LAB RADIOLOGICAL TECHNOLOGIST rocuronium 2021-0 No Route: IV, M emoria (ANES) 2-19 Drug form: l 22:01: INJ, ONCE, Stop date: 12/30/21 16:01:00 CATH LAB RADIOLOGICAL TECHNOLOGIST fentaNYL 2021-0 No Route: IV, Mem oria (ANES) 2-19 Drug form: l 22:01: INJ, ONCE, Stop date: 12/30/21 16:01:00 CATH LAB RADIOLOGICAL TECHNOLOGIST ePHEDrine 2021-0 No Route: IV, Me moria (ANES) 2-19 Drug form: l 22:01: INJ, ONCE, Stop date: 12/30/21 16:01:00 CATH LAB RADIOLOGICAL TECHNOLOGIST propofol 2-0 No Route: IV, Mem oria (ANES) 2-19 Drug form: l 22:01: INJ, ONCE, Stop date: 12/30/21 16:01:00 CATH LAB RADIOLOGICAL TECHNOLOGIST rocuronium 2-0 No Route: IV, M emoria (ANES) 2-19 Drug form: l 22:01: INJ, ONCE, Stop date: 12/30/21 16:01:00 CATH LAB RADIOLOGICAL TECHNOLOGIST fentaNYL 2-0 No Route: IV, Mem oria (ANES) 2-19 Drug form: l 22:01: INJ, ONCE, Stop date: 12/30/21 16:01:00 CATH LAB RADIOLOGICAL TECHNOLOGIST ePHEDrine 2-0 No Route: IV, Me moria (ANES) 2-19 Drug form: l 22:01: INJ, ONCE, Stop date: 12/30/21 16:01:00 CATH LAB RADIOLOGICAL TECHNOLOGIST propofol 2-0 No Route: IV, Mem oria (ANES) 2-19 Drug form: l 22:01: INJ, ONCE, Stop date: 12/30/21 16:01:00 CATH LAB RADIOLOGICAL TECHNOLOGIST rocuronium 2021-0 No Route: IV, M emoria (ANES) 2-19 Drug form: l 22:01: INJ, ONCE, Stop date: 12/30/21 16:01:00 CATH LAB RADIOLOGICAL TECHNOLOGIST fentaNYL 2021-0 No Route: IV, Mem oria (ANES) 2-19 Drug form: l 22:01: INJ, ONCE, Stop date: 12/30/21 16:01:00 CATH LAB RADIOLOGICAL TECHNOLOGIST ePHEDrine 2021-0 No Route: IV, Me moria (ANES) 2-19 Drug form: l 22:01: INJ, ONCE, Stop date: 12/30/21 16:01:00 CATH LAB RADIOLOGICAL TECHNOLOGIST lidocaine 2021-0 No Route: IV, Me moria (ANES) 2-19 Drug form: l 21:56: INJ, ONCE, Stop date: 12/30/21 15:56:00 CATH LAB RADIOLOGICAL TECHNOLOGIST lidocaine 2021-0 No Route: IV, Me moria (ANES) 2-19 Drug form: l 21:56: INJ, ONCE, Stop date: 12/30/21 15:56:00 CATH LAB RADIOLOGICAL TECHNOLOGIST lidocaine 2021-0 No Route: IV, Me moria (ANES) 2-19 Drug form: l 21:56: INJ, ONCE, Stop date: 12/30/21 15:56:00 CATH LAB RADIOLOGICAL TECHNOLOGIST lidocaine 2021-0 No Route: IV, Me moria (ANES) 2-19 Drug form: l 21:56: INJ, ONCE, Stop date: 12/30/21 15:56:00 CATH LAB RADIOLOGICAL TECHNOLOGIST lidocaine 2021-0 No Route: IV, Me moria (ANES) 2-19 Drug form: l 21:56: INJ, ONCE, Stop date: 12/30/21 15:56:00 CATH LAB RADIOLOGICAL TECHNOLOGIST lidocaine 2021-0 No Route: IV, Me moria (ANES) 2-19 Drug form: l 21:56: INJ, ONCE, Stop date: 12/30/21 15:56:00 CATH LAB RADIOLOGICAL TECHNOLOGIST lidocaine 2021-0 No Route: IV, Me moria (ANES) 2-19 Drug form: l 21:56: INJ, ONCE, Stop date: 12/30/21 15:56:00 CATH LAB RADIOLOGICAL TECHNOLOGIST lidocaine No Route: IV, Me moria (ANES) 2- Drug form: l 21:56: INJ, ONCE, Stop date: 12/30/21 15:56:00 CATH LAB RADIOLOGICAL TECHNOLOGIST lidocaine No Route: IV, Me moria (ANES) 2- Drug form: l 21:56: INJ, ONCE, Stop date: 12/30/21 15:56:00 CATH LAB RADIOLOGICAL TECHNOLOGIST lidocaine No Route: IV, Me moria (ANES) 2- Drug form: l 21:56: INJ, ONCE, Stop date: 12/30/21 15:56:00 CATH LAB RADIOLOGICAL TECHNOLOGIST lidocaine No Route: IV, Me moria (ANES) 2- Drug form: l 21:56: INJ, ONCE, Stop date: 12/30/21 15:56:00 CATH LAB RADIOLOGICAL TECHNOLOGIST lidocaine No Route: IV, Me moria (ANES) 2 Drug form: l 21:56: INJ, ONCE, Stop date: 12/30/21 15:56:00 CATH LAB RADIOLOGICAL TECHNOLOGIST Labetalol No 10 mg, 2 Ervin marybel 2-19 mL, Route: l 21:51: IVP, Drug form: INJ, Q5Min, Dosing Weight 54.682, kg, PRN Elevated BP, Start date: 12/30/21 15:51:00 CATH LAB RADIOLOGICAL TECHNOLOGIST, Duration: 5 doses or times, Stop date: Limited # of times, 0 Acetaminoph No Notes: Max Memoria en 12-30 acetaminop l 21:51: hen 4000 mg/day (4 gm/day). (Same as: Tylenol Extra Strength) Oxycodone No Notes: Memori a 12-30 (Same as: l 21:51: 'Roxicodon e) Hydromorpho No Notes: Ervin marybel ne 12-30 Same as l 21:51: Dilaudid Flumazenil No Notes: Memor ia 12-30 (Same as: l 21:51: Romazicon) Syed 00 Naloxone No Notes: Memoria 2-19 Same as l 21:51: Narcan Ondansetron No Notes: Ervin marybel 2-19 (Same as: l 21:51: Zofran) MEDICATION WASTE Product Size: 4 mg Product Wasted: ___ mg Labetalol No 10 mg, 2 Ervin marybel 2-19 mL, Route: l 21:51: IVP, Drug Syed 00 form: INJ, Q5Min, Dosing Weight 54.682, kg, PRN Elevated BP, Start date: 12/30/21 15:51:00 CATH LAB RADIOLOGICAL TECHNOLOGIST, Duration: 5 doses or times, Stop date: Limited # of times, 0 Acetaminoph No Notes: Max Memoria en - acetaminop l 21:51: hen 4000 Constantia 00 mg/day (4 gm/day). (Same as: Tylenol Extra Strength) Oxycodone No Notes: Memori a 2-19 (Same as: l 21:51: 'Roxicodon e) Hydromorpho No Notes: Ervin marybel ne 2-19 Same as l 21:51: Dilaudid Flumazenil No Notes: Memor ia 2-19 (Same as: l 21:51: Romazicon) Naloxone No Notes: Memoria 2-19 Same as l 21:51: Narcan Ondansetron No Notes: Ervin marybel 2-19 (Same as: l 21:51: Zofran) MEDICATION WASTE Product Size: 4 mg Product Wasted: ___ mg Labetalol No 10 mg, 2 Ervin marybel 2-19 mL, Route: l 21:51: IVP, Drug Syed 00 form: INJ, Q5Min, Dosing Weight 54.682, kg, PRN Elevated BP, Start date: 12/30/21 15:51:00 CATH LAB RADIOLOGICAL TECHNOLOGIST, Duration: 5 doses or times, Stop date: Limited # of times, 0 Acetaminoph No Notes: Max Memoria en 2-19 acetaminop l 21:51: hen 4000 Constantia 00 mg/day (4 gm/day). (Same as: Tylenol Extra Strength) Oxycodone No Notes: Memori a 2-19 (Same as: l 21:51: 'Roxicodon Syed 00 e) Hydromorpho No Notes: Ervin marybel ne 2-19 Same as l 21:51: Dilaudid Flumazenil No Notes: Memor ia 2-19 (Same as: l 21:51: Romazicon) Syed 00 Naloxone No Notes: Memoria 2-19 Same as l 21:51: Narcan Ondansetron No Notes: Ervin marybel 2-19 (Same as: l 21:51: Zofran) Syed 00 MEDICATION WASTE Product Size: 4 mg Product Wasted: ___ mg Labetalol No 10 mg, 2 Ervin marybel 2-19 mL, Route: l 21:51: IVP, Drug form: INJ, Q5Min, Dosing Weight 54.682, kg, PRN Elevated BP, Start date: 12/30/21 15:51:00 CATH LAB RADIOLOGICAL TECHNOLOGIST, Duration: 5 doses or times, Stop date: Limited # of times, 0 Acetaminoph No Notes: Max Memoria en 2-19 acetaminop l 21:51: hen 4000 Syed 00 mg/day (4 gm/day). (Same as: Tylenol Extra Strength) Oxycodone No Notes: Memori a 2-19 (Same as: l 21:51: 'Roxicodon e) Hydromorpho No Notes: Ervin marybel ne 2-19 Same as l 21:51: Dilaudid Flumazenil No Notes: Memor ia 2-19 (Same as: l 21:51: Romazicon) Syed 00 Naloxone No Notes: Memoria 2-19 Same as l 21:51: Narcan Syed 00 Ondansetron No Notes: Ervin marybel 2-19 (Same as: l 21:51: Zofran) MEDICATION WASTE Product Size: 4 mg Product Wasted: ___ mg Labetalol No 10 mg, 2 Ervin marybel 2-19 mL, Route: l 21:51: IVP, Drug form: INJ, Q5Min, Dosing Weight 54.682, kg, PRN Elevated BP, Start date: 12/30/21 15:51:00 CATH LAB RADIOLOGICAL TECHNOLOGIST, Duration: 5 doses or times, Stop date: Limited # of times, 0 Acetaminoph No Notes: Max Memoria en 2-19 acetaminop l 21:51: hen 4000 Syed 00 mg/day (4 gm/day). (Same as: Tylenol Extra Strength) Oxycodone No Notes: Memori a 2-19 (Same as: l 21:51: 'Roxicodon e) Hydromorpho No Notes: Ervin marybel ne 2-19 Same as l 21:51: Dilaudid Flumazenil No Notes: Memor ia 2-19 (Same as: l 21:51: Romazicon) Naloxone No Notes: Memoria 2-19 Same as l 21:51: Narcan Ondansetron No Notes: Ervin marybel 2-19 (Same as: l 21:51: Zofran) MEDICATION WASTE Product Size: 4 mg Product Wasted: ___ mg Labetalol No 10 mg, 2 Ervin marybel 2-19 mL, Route: l 21:51: IVP, Drug form: INJ, Q5Min, Dosing Weight 54.682, kg, PRN Elevated BP, Start date: 12/30/21 15:51:00 CATH LAB RADIOLOGICAL TECHNOLOGIST, Duration: 5 doses or times, Stop date: Limited # of times, 0 Acetaminoph No Notes: Max Memoria en 2-19 acetaminop l 21:51: hen 4000 Constantia 00 mg/day (4 gm/day). (Same as: Tylenol Extra Strength) Oxycodone No Notes: Memori a 2-19 (Same as: l 21:51: 'Roxicodon Syed 00 e) Hydromorpho No Notes: Ervin marybel ne 2-19 Same as l 21:51: Dilaudid Constantia 00 Flumazenil No Notes: Memor ia 2-19 (Same as: l 21:51: Romazicon) Syed Naloxone No Notes: Memoria 2-19 Same as l 21:51: Narcan Constantia 00 Ondansetron No Notes: Ervin marybel 2-19 (Same as: l 21:51: Zofran) Syed 00 MEDICATION WASTE Product Size: 4 mg Product Wasted: ___ mg Labetalol No 10 mg, 2 Ervin marybel 2-19 mL, Route: l 21:51: IVP, Drug form: INJ, Q5Min, Dosing Weight 54.682, kg, PRN Elevated BP, Start date: 12/30/21 15:51:00 CATH LAB RADIOLOGICAL TECHNOLOGIST, Duration: 5 doses or times, Stop date: Limited # of times, 0 Acetaminoph No Notes: Max Memoria en 2-19 acetaminop l 21:51: hen 4000 Constantia 00 mg/day (4 gm/day). (Same as: Tylenol Extra Strength) Oxycodone No Notes: Memori a 2-19 (Same as: l 21:51: 'Roxicodon Constantia 00 e) Hydromorpho No Notes: Ervin marybel ne 2-19 Same as l 21:51: Dilaudid Syed 00 Flumazenil No Notes: Memor ia 2-19 (Same as: l 21:51: Romazicon) Syed 00 Naloxone No Notes: Memoria 2-19 Same as l 21:51: Narcan Syed 00 Ondansetron No Notes: Ervin marybel 2-19 (Same as: l 21:51: Zofran) Constantia MEDICATION WASTE Product Size: 4 mg Product Wasted: ___ mg Labetalol No 10 mg, 2 Ervin marybel 2-19 mL, Route: l 21:51: IVP, Drug Syed form: INJ, Q5Min, Dosing Weight 54.682, kg, PRN Elevated BP, Start date: 12/30/21 15:51:00 CATH LAB RADIOLOGICAL TECHNOLOGIST, Duration: 5 doses or times, Stop date: Limited # of times, 0 Acetaminoph No Notes: Max Memoria en 2-19 acetaminop l 21:51: hen 4000 Constantia 00 mg/day (4 gm/day). (Same as: Tylenol Extra Strength) Oxycodone No Notes: Memori a 2-19 (Same as: l 21:51: 'Roxicodon Syed 00 e) Hydromorpho No Notes: Ervin marybel ne 2-19 Same as l 21:51: Dilaudid Constantia 00 Flumazenil No Notes: Memor ia 2-19 (Same as: l 21:51: Romazicon) Constantia 00 Naloxone No Notes: Memoria 2-19 Same as l 21:51: Narcan Syed 00 Ondansetron No Notes: Ervin marybel 2-19 (Same as: l 21:51: Zofran) Syed 00 MEDICATION WASTE Product Size: 4 mg Product Wasted: ___ mg Labetalol No 10 mg, 2 Ervin marybel 2-19 mL, Route: l 21:51: IVP, Drug Constantia 00 form: INJ, Q5Min, Dosing Weight 54.682, kg, PRN Elevated BP, Start date: 12/30/21 15:51:00 CATH LAB RADIOLOGICAL TECHNOLOGIST, Duration: 5 doses or times, Stop date: Limited # of times, 0 Acetaminoph No Notes: Max Memoria en 2-19 acetaminop l 21:51: hen 4000 Constantia 00 mg/day (4 gm/day). (Same as: Tylenol Extra Strength) Oxycodone No Notes: Memori a 2-19 (Same as: l 21:51: 'Roxicodon Syed 00 e) Hydromorpho No Notes: Ervin marybel ne 2-19 Same as l 21:51: Dilaudid Constantia 00 Flumazenil No Notes: Memor ia 2-19 (Same as: l 21:51: Romazicon) Syed Naloxone No Notes: Memoria 2-19 Same as l 21:51: Narcan Syed 00 Ondansetron No Notes: Ervin marybel 2-19 (Same as: l 21:51: Zofran) Constantia 00 MEDICATION WASTE Product Size: 4 mg Product Wasted: ___ mg Labetalol No 10 mg, 2 Ervin marybel 2-19 mL, Route: l 21:51: IVP, Drug Syed form: INJ, Q5Min, Dosing Weight 54.682, kg, PRN Elevated BP, Start date: 12/30/21 15:51:00 CATH LAB RADIOLOGICAL TECHNOLOGIST, Duration: 5 doses or times, Stop date: Limited # of times, 0 Acetaminoph No Notes: Max Memoria en 2- acetaminop l 21:51: hen 4000 Constantia 00 mg/day (4 gm/day). (Same as: Tylenol Extra Strength) Oxycodone No Notes: Memori a 2-19 (Same as: l 21:51: 'Roxicodon Syed 00 e) Hydromorpho No Notes: Ervin marybel ne 2-19 Same as l 21:51: Dilaudid Constantia 00 Flumazenil No Notes: Memor ia 2-19 (Same as: l 21:51: Romazicon) Constantia 00 Naloxone No Notes: Memoria 2-19 Same as l 21:51: Narcan Syed 00 Ondansetron No Notes: Ervin marybel 2-19 (Same as: l 21:51: Zofran) Constantia 00 MEDICATION WASTE Product Size: 4 mg Product Wasted: ___ mg Labetalol No 10 mg, 2 Ervin marybel 2-19 mL, Route: l 21:51: IVP, Drug Constantia 00 form: INJ, Q5Min, Dosing Weight 54.682, kg, PRN Elevated BP, Start date: 12/30/21 15:51:00 CATH LAB RADIOLOGICAL TECHNOLOGIST, Duration: 5 doses or times, Stop date: Limited # of times, 0 Acetaminoph No Notes: Max Memoria en 2-19 acetaminop l 21:51: hen 4000 Syed 00 mg/day (4 gm/day). (Same as: Tylenol Extra Strength) Oxycodone No Notes: Memori a 2-19 (Same as: l 21:51: 'Roxicodon Constantia 00 e) Hydromorpho No Notes: Ervin marybel ne 2-19 Same as l 21:51: Dilaudid Constantia 00 Flumazenil No Notes: Memor ia 2-19 (Same as: l 21:51: Romazicon) Constantia 00 Naloxone No Notes: Memoria 2-19 Same as l 21:51: Narcan Constantia 00 Ondansetron No Notes: Ervin marybel 2-19 (Same as: l 21:51: Zofran) Constantia 00 MEDICATION WASTE Product Size: 4 mg Product Wasted: ___ mg Labetalol No 10 mg, 2 Ervin marybel 2-19 mL, Route: l 21:51: IVP, Drug form: INJ, Q5Min, Dosing Weight 54.682, kg, PRN Elevated BP, Start date: 12/30/21 15:51:00 CATH LAB RADIOLOGICAL TECHNOLOGIST, Duration: 5 doses or times, Stop date: Limited # of times, 0 Acetaminoph No Notes: Max Memoria en 2-19 acetaminop l 21:51: hen 4000 Constantia 00 mg/day (4 gm/day). (Same as: Tylenol Extra Strength) Oxycodone No Notes: Memori a 2-19 (Same as: l 21:51: 'Roxicodon Syed 00 e) Hydromorpho No Notes: Ervin marybel ne 2-19 Same as l 21:51: Dilaudid Constantia 00 Flumazenil No Notes: Memor ia 2-19 (Same as: l 21:51: Romazicon) Constantia 00 Naloxone No Notes: Memoria 2-19 Same as l 21:51: Narcan Syed 00 Ondansetron No Notes: Ervin marybel 2-19 (Same as: l 21:51: Zofran) MEDICATION WASTE Product Size: 4 mg Product Wasted: ___ mg ceFAZolin 2021-0 No Route: IV, Me moria (ANES) 2-19 Drug form: l 21:36: INJ, ONCE, Stop date: 12/30/21 15:36:00 CATH LAB RADIOLOGICAL TECHNOLOGIST ceFAZolin 2021-0 No Route: IV, Me moria (ANES) 2-19 Drug form: l 21:36: INJ, ONCE, Stop date: 12/30/21 15:36:00 CATH LAB RADIOLOGICAL TECHNOLOGIST ceFAZolin 2021-0 No Route: IV, Me moria (ANES) 2-19 Drug form: l 21:36: INJ, ONCE, Stop date: 12/30/21 15:36:00 CATH LAB RADIOLOGICAL TECHNOLOGIST ceFAZolin 2021-0 No Route: IV, Me moria (ANES) 2-19 Drug form: l 21:36: INJ, ONCE, Stop date: 12/30/21 15:36:00 CATH LAB RADIOLOGICAL TECHNOLOGIST ceFAZolin 202-0 No Route: IV, Me moria (ANES) 2-19 Drug form: l 21:36: INJ, ONCE, Stop date: 12/30/21 15:36:00 CATH LAB RADIOLOGICAL TECHNOLOGIST ceFAZolin 2021-0 No Route: IV, Me moria (ANES) 2-19 Drug form: l 21:36: INJ, ONCE, Stop date: 12/30/21 15:36:00 CATH LAB RADIOLOGICAL TECHNOLOGIST ceFAZolin 202-0 No Route: IV, Me moria (ANES) 2-19 Drug form: l 21:36: INJ, ONCE, Stop date: 12/30/21 15:36:00 CATH LAB RADIOLOGICAL TECHNOLOGIST ceFAZolin 2021-0 No Route: IV, Me moria (ANES) 2-19 Drug form: l 21:36: INJ, ONCE, Stop date: 12/30/21 15:36:00 CATH LAB RADIOLOGICAL TECHNOLOGIST ceFAZolin 202-0 No Route: IV, Me moria (ANES) 2-19 Drug form: l 21:36: INJ, ONCE, Stop date: 12/30/21 15:36:00 CATH LAB RADIOLOGICAL TECHNOLOGIST ceFAZolin 2022-0 No Route: IV, Me moria (ANES) 2-19 Drug form: l 21:36: INJ, ONCE, Stop date: 12/30/21 15:36:00 CATH LAB RADIOLOGICAL TECHNOLOGIST ceFAZolin 2-0 No Route: IV, Me moria (ANES) 2-19 Drug form: l 21:36: INJ, ONCE, Stop date: 12/30/21 15:36:00 CATH LAB RADIOLOGICAL TECHNOLOGIST ceFAZolin 2-0 No Route: IV, Me moria (ANES) 2-19 Drug form: l 21:36: INJ, ONCE, Stop date: 12/30/21 15:36:00 CATH LAB RADIOLOGICAL TECHNOLOGIST Lactated 2021-0 No Route: IV, Mem oria Ringers 2-19 Total l Injection 20:49: Volume: Allyn nn IV (ANES) 00 1,000, 1000 mL Start date: 12/30/21 14:49:00 CATH LAB RADIOLOGICAL TECHNOLOGIST, Stop date: 12/30/21 15:49:00 CATH LAB RADIOLOGICAL TECHNOLOGIST Lactated 2021-0 No Route: IV, Mem oria Ringers 2-19 Total l Injection 20:49: Volume: Allyn nn IV (ANES) 00 1,000, 1000 mL Start date: 12/30/21 14:49:00 CATH LAB RADIOLOGICAL TECHNOLOGIST, Stop date: 12/30/21 15:49:00 CATH LAB RADIOLOGICAL TECHNOLOGIST Lactated 2021-0 No Route: IV, Mem oria Ringers 2-19 Total l Injection 20:49: Volume: Allyn nn IV (ANES) 00 1,000, 1000 mL Start date: 12/30/21 14:49:00 CATH LAB RADIOLOGICAL TECHNOLOGIST, Stop date: 12/30/21 15:49:00 CATH LAB RADIOLOGICAL TECHNOLOGIST Lactated 2021-0 No Route: IV, Mem oria Ringers 2-19 Total l Injection 20:49: Volume: Allyn nn IV (ANES) 00 1,000, 1000 mL Start date: 12/30/21 14:49:00 CATH LAB RADIOLOGICAL TECHNOLOGIST, Stop date: 12/30/21 15:49:00 CATH LAB RADIOLOGICAL TECHNOLOGIST Lactated 2021-0 No Route: IV, Mem oria Ringers 2-19 Total l Injection 20:49: Volume: Allyn nn IV (ANES) 00 1,000, 1000 mL Start date: 12/30/21 14:49:00 CATH LAB RADIOLOGICAL TECHNOLOGIST, Stop date: 12/30/21 15:49:00 CATH LAB RADIOLOGICAL TECHNOLOGIST Lactated 2021-0 No Route: IV, Mem oria Ringers 2-19 Total l Injection 20:49: Volume: Allyn nn IV (ANES) 00 1,000, 1000 mL Start date: 12/30/21 14:49:00 CATH LAB RADIOLOGICAL TECHNOLOGIST, Stop date: 12/30/21 15:49:00 CATH LAB RADIOLOGICAL TECHNOLOGIST Lactated 2021-0 No Route: IV, Mem oria Ringers 2-19 Total l Injection 20:49: Volume: Allyn nn IV (ANES) 00 1,000, 1000 mL Start date: 12/30/21 14:49:00 CATH LAB RADIOLOGICAL TECHNOLOGIST, Stop date: 12/30/21 15:49:00 CATH LAB RADIOLOGICAL TECHNOLOGIST Lactated 2021-0 No Route: IV, Mem oria Ringers 2-19 Total l Injection 20:49: Volume: Allyn nn IV (ANES) 00 1,000, 1000 mL Start date: 12/30/21 14:49:00 CATH LAB RADIOLOGICAL TECHNOLOGIST, Stop date: 12/30/21 15:49:00 CATH LAB RADIOLOGICAL TECHNOLOGIST Lactated 2021-0 No Route: IV, Mem oria Ringers 2-19 Total l Injection 20:49: Volume: Allyn nn IV (ANES) 00 1,000, 1000 mL Start date: 12/30/21 14:49:00 CATH LAB RADIOLOGICAL TECHNOLOGIST, Stop date: 12/30/21 15:49:00 CATH LAB RADIOLOGICAL TECHNOLOGIST Lactated 2021-0 No Route: IV, Mem oria Ringers 2-19 Total l Injection 20:49: Volume: Allyn nn IV (ANES) 00 1,000, 1000 mL Start date: 12/30/21 14:49:00 CATH LAB RADIOLOGICAL TECHNOLOGIST, Stop date: 12/30/21 15:49:00 CATH LAB RADIOLOGICAL TECHNOLOGIST Lactated 2021-0 No Route: IV, Mem oria Ringers 2-19 Total l Injection 20:49: Volume: Allyn nn IV (ANES) 00 1,000, 1000 mL Start date: 12/30/21 14:49:00 CATH LAB RADIOLOGICAL TECHNOLOGIST, Stop date: 12/30/21 15:49:00 CATH LAB RADIOLOGICAL TECHNOLOGIST Lactated 2021-0 No Route: IV, Mem oria Ringers 2-19 Total l Injection 20:49: Volume: Allyn nn IV (ANES) 00 1,000, 1000 mL Start date: 12/30/21 14:49:00 CATH LAB RADIOLOGICAL TECHNOLOGIST, Stop date: 12/30/21 15:49:00 CATH LAB RADIOLOGICAL TECHNOLOGIST Sodium No Notes: Memoria polystyrene 2-19 (sodium l sulfonate 14:42: polystyren He rmann 00 e sulfonate 15 gm/60 ml ELVIA) Shake well before use. (Same as: Kayexalate , SPS) Calcium No Notes: Memoria Gluconate 2-19 WASTE: F/P l 14:42: - Sink; E Syed 00 - [facility] Trash Bin Insulin No Notes: Memoria regular 2-19 (Same as: l 14:42: Humulin R) Syed 00 Roll in palms of hands gently; Do not shake vigorously . WASTE: F/P - Black; E - [facility] Trash Bin Stable for 31 days at room temperatur e Expires in days from ____Date Sodium No Notes: Memoria polystyrene 2-19 (sodium l sulfonate 14:42: polystyren He rmann 00 e sulfonate 15 gm/60 ml ELVIA) Shake well before use. (Same as: Kayexalate , SPS) Calcium No Notes: Memoria Gluconate 2-19 WASTE: F/P l 14:42: - Sink; E Syed 00 - [facility] Trash Bin Insulin No Notes: Memoria regular 2-19 (Same as: l 14:42: Humulin R) Constantia 00 Roll in palms of hands gently; Do not shake vigorously . WASTE: F/P - Black; E - [facility] Trash Bin Stable for 31 days at room temperatur e Expires in days from ____Date Sodium No Notes: Memoria polystyrene 2-19 (sodium l sulfonate 14:42: polystyren He rmann 00 e sulfonate 15 gm/60 ml ELVIA) Shake well before use. (Same as: Kayexalate , SPS) Calcium No Notes: Memoria Gluconate 2-19 WASTE: F/P l 14:42: - Sink; E Constantia 00 - [facility] Trash Bin Insulin No Notes: Memoria regular 2-19 (Same as: l 14:42: Humulin R) Constantia 00 Roll in palms of hands gently; Do not shake vigorously . WASTE: F/P - Black; E - [facility] Trash [facility] Stable for 31 days at room temperatur e Expires in days from ____Date Sodium No Notes: Memoria polystyrene 2-19 (sodium l sulfonate 14:42: polystyren He rmann 00 e sulfonate 15 gm/60 ml ELVIA) Shake well before use. (Same as: Kayexalate , SPS) Calcium No Notes: Memoria Gluconate 2-19 WASTE: F/P l 14:42: - Sink; E Syed 00 - [facility] Trash Bin Insulin No Notes: Memoria regular 2-19 (Same as: l 14:42: Humulin R) Syed 00 Roll in palms of hands gently; Do not shake vigorously . WASTE: F/P - Black; E - [facility] Trash Bin Stable for 31 days at room temperatur e Expires in days from ____Date Sodium No Notes: Memoria polystyrene 2-19 (sodium l sulfonate 14:42: polystyren He rmann 00 e sulfonate 15 gm/60 ml ELVIA) Shake well before use. (Same as: Kayexalate , SPS) Calcium No Notes: Memoria Gluconate 2-19 WASTE: F/P l 14:42: - Sink; E Constantia 00 - [facility] Trash Bin Insulin No Notes: Memoria regular 2-19 (Same as: l 14:42: Humulin R) Constantia 00 Roll in palms of hands gently; Do not shake vigorously . WASTE: F/P - Black; E - [facility] Trash Bin Stable for 31 days at room temperatur e Expires in days from ____Date Sodium No Notes: [facility] polystyrene 2-19 (sodium l sulfonate 14:42: polystyren He r[place] 00 e sulfonate 15 gm/60 ml ELVIA) Shake well before use. (Same as: Kayexalate , SPS) Calcium No Notes: [facility] Gluconate 2-19 WASTE: F/P l 14:42: - Sink; E [place] 00 - [facility] Insulin No Notes: [facility] regular 2-19 (Same as: l 14:42: Humulin R) [place] 00 Roll in palms of hands gently; Do not shake vigorously . WASTE: F/P - Black; E - [facility] Stable for 31 days at room temperatur e Expires in days from ____Date Sodium No Notes: [facility] polystyrene 2-19 (sodium l sulfonate 14:42: polystyren He r[place] 00 e sulfonate 15 gm/60 ml ELVIA) Shake well before use. (Same as: Kayexalate , SPS) Calcium No Notes: [facility] Gluconate 2-19 WASTE: F/P l 14:42: - Sink; E [place] 00 - [facility] Insulin No Notes: [facility] regular 2-19 (Same as: l 14:42: Humulin R) [place] 00 Roll in palms of hands gently; Do not shake vigorously . WASTE: F/P - Black; E - [facility] Stable for 31 days at room temperatur e Expires in days from ____Date Sodium No Notes: [facility] polystyrene 2-19 (sodium l sulfonate 14:42: polystyren He r[place] 00 e sulfonate 15 gm/60 ml ELVIA) Shake well before use. (Same as: Kayexalate , SPS) Calcium No Notes: [facility] Gluconate 2-19 WASTE: F/P l 14:42: - Sink; E [place] 00 - [facility] Insulin No Notes: [facility] regular 2-19 (Same as: l 14:42: Humulin R) [place]ed 00 Roll in palms of hands gently; Do not shake vigorously . WASTE: F/P - Black; E - [facility] Stable for 31 days at room temperatur e Expires in days from ____Date Sodium No Notes: [facility] polystyrene 2-19 (sodium l sulfonate 14:42: polystyren He r[place] 00 e sulfonate 15 gm/60 ml ELVIA) Shake well before use. (Same as: Kayexalate , SPS) Calcium No Notes: [facility] Gluconate 2-19 WASTE: F/P l 14:42: - Sink; E [place] 00 - [facility] Insulin No Notes: [facility] regular 2-19 (Same as: l 14:42: Humulin R) [place] 00 Roll in palms of hands gently; Do not shake vigorously . WASTE: F/P - Black; E - [facility] Stable for 31 days at room temperatur e Expires in days from ____Date Sodium No Notes: [facility] polystyrene 2-19 (sodium l sulfonate 14:42: polystyren He rmann 00 e sulfonate 15 gm/60 ml ELVIA) Shake well before use. (Same as: Kayexalate , SPS) Calcium No Notes: [facility] Gluconate 2-19 WASTE: F/P l 14:42: - Sink; E [place] 00 - [facility] Insulin No Notes: [facility] regular 2-19 (Same as: l 14:42: Humulin R) [place] 00 Roll in palms of hands gently; Do not shake vigorously . WASTE: F/P - Black; E - [facility] Stable for 31 days at room temperatur e Expires in days from ____Date Sodium No Notes: [facility] polystyrene 2-19 (sodium l sulfonate 14:42: polystyren He rmann 00 e sulfonate 15 gm/60 ml ELVIA) Shake well before use. (Same as: Kayexalate , SPS) Calcium No Notes: Memoria Gluconate 2-19 WASTE: F/P l 14:42: - Sink; E [place] 00 - Municipal Trash Bin Insulin No Notes: Memoria regular 2-19 (Same as: l 14:42: Humulin R) Syed Roll in palms of hands gently; Do not shake vigorously . WASTE: F/P - Black; E - Municipal Trash Bin Stable for 31 days at room temperatur e Expires in days from ____Date Sodium No Notes: Memoria polystyrene 2-19 (sodium l sulfonate 14:42: polystyren He rm e sulfonate 15 gm/60 ml ELVIA) Shake well before use. (Same as: Kayexalate , SPS) Calcium No Notes: Memoria Gluconate 2- WASTE: F/P l 14:42: - Sink; E Constantia - Municipal Trash Bin Insulin No Notes: Memoria regular 2-19 (Same as: l 14:42: Humulin R) Constantia Roll in palms of hands gently; Do not shake vigorously . WASTE: F/P - Black; E - Municipal Trash Bin Stable for 31 days at room temperatur e Expires in days from ____Date NS (Bolus) No 500 mL, Ervin marybel IV 2-19 500 ml/hr, l 12:04: Infuse Syed 00 Over: 1 hr, Route: IV, 500, Drug form: INJ, ONCE, Priority: STAT, Dosing Weight 54.682 kg, Start date: 12/30/21 6:04:00 CATH LAB RADIOLOGICAL TECHNOLOGIST, Stop date: 12/30/21 6:04:00 CATH LAB RADIOLOGICAL TECHNOLOGIST, 0 NS (Bolus) No 500 mL, Ervin marybel IV 2-19 500 ml/hr, l 12:04: Infuse Syed 00 Over: 1 hr, Route: IV, 500, Drug form: INJ, ONCE, Priority: STAT, Dosing Weight 54.682 kg, Start date: 12/30/21 6:04:00 CATH LAB RADIOLOGICAL TECHNOLOGIST, Stop date: 12/30/21 6:04:00 CATH LAB RADIOLOGICAL TECHNOLOGIST, 0 NS (Bolus) No 500 mL, Ervin marybel IV 2-19 500 ml/hr, l 12:04: Infuse Syed 00 Over: 1 hr, Route: IV, 500, Drug form: INJ, ONCE, Priority: STAT, Dosing Weight 54.682 kg, Start date: 12/30/21 6:04:00 CATH LAB RADIOLOGICAL TECHNOLOGIST, Stop date: 12/30/21 6:04:00 CATH LAB RADIOLOGICAL TECHNOLOGIST, 0 NS (Bolus) 2021-0 No 500 mL, Ervin marybel IV 2-19 500 ml/hr, l 12:04: Infuse Syed 00 Over: 1 hr, Route: IV, 500, Drug form: INJ, ONCE, Priority: STAT, Dosing Weight 54.682 kg, Start date: 12/30/21 6:04:00 CATH LAB RADIOLOGICAL TECHNOLOGIST, Stop date: 12/30/21 6:04:00 CATH LAB RADIOLOGICAL TECHNOLOGIST, 0 NS (Bolus) 2021-0 No 500 mL, Ervin marybel IV 2-19 500 ml/hr, l 12:04: Infuse Syed 00 Over: 1 hr, Route: IV, 500, Drug form: INJ, ONCE, Priority: STAT, Dosing Weight 54.682 kg, Start date: 12/30/21 6:04:00 CATH LAB RADIOLOGICAL TECHNOLOGIST, Stop date: 12/30/21 6:04:00 CATH LAB RADIOLOGICAL TECHNOLOGIST, 0 NS (Bolus) 2021-0 No 500 mL, Ervin marybel IV 2-19 500 ml/hr, l 12:04: Infuse Syed 00 Over: 1 hr, Route: IV, 500, Drug form: INJ, ONCE, Priority: STAT, Dosing Weight 54.682 kg, Start date: 12/30/21 6:04:00 CATH LAB RADIOLOGICAL TECHNOLOGIST, Stop date: 12/30/21 6:04:00 CATH LAB RADIOLOGICAL TECHNOLOGIST, 0 NS (Bolus) 2021-0 No 500 mL, Ervin marybel IV 2-19 500 ml/hr, l 12:04: Infuse Syed 00 Over: 1 hr, Route: IV, 500, Drug form: INJ, ONCE, Priority: STAT, Dosing Weight 54.682 kg, Start date: 12/30/21 6:04:00 CATH LAB RADIOLOGICAL TECHNOLOGIST, Stop date: 12/30/21 6:04:00 CATH LAB RADIOLOGICAL TECHNOLOGIST, 0 NS (Bolus) 2021-0 No 500 mL, Ervin marybel IV 2-19 500 ml/hr, l 12:04: Infuse Constantia 00 Over: 1 hr, Route: IV, 500, Drug form: INJ, ONCE, Priority: STAT, Dosing Weight 54.682 kg, Start date: 12/30/21 6:04:00 CATH LAB RADIOLOGICAL TECHNOLOGIST, Stop date: 12/30/21 6:04:00 CATH LAB RADIOLOGICAL TECHNOLOGIST, 0 NS (Bolus) 0 No 500 mL, Ervin marybel IV 2-19 500 ml/hr, l 12:04: Infuse Constantia 00 Over: 1 hr, Route: IV, 500, Drug form: INJ, ONCE, Priority: STAT, Dosing Weight 54.682 kg, Start date: 12/30/21 6:04:00 CATH LAB RADIOLOGICAL TECHNOLOGIST, Stop date: 12/30/21 6:04:00 CATH LAB RADIOLOGICAL TECHNOLOGIST, 0 NS (Bolus) No 500 mL, Ervin marybel IV 2-19 500 ml/hr, l 12:04: Infuse Syed 00 Over: 1 hr, Route: IV, 500, Drug form: INJ, ONCE, Priority: STAT, Dosing Weight 54.682 kg, Start date: 12/30/21 6:04:00 CATH LAB RADIOLOGICAL TECHNOLOGIST, Stop date: 12/30/21 6:04:00 CATH LAB RADIOLOGICAL TECHNOLOGIST, 0 NS (Bolus) No 500 mL, Ervin marybel IV 2-19 500 ml/hr, l 12:04: Infuse Constantia 00 Over: 1 hr, Route: IV, 500, Drug form: INJ, ONCE, Priority: STAT, Dosing Weight 54.682 kg, Start date: 12/30/21 6:04:00 CATH LAB RADIOLOGICAL TECHNOLOGIST, Stop date: 12/30/21 6:04:00 CATH LAB RADIOLOGICAL TECHNOLOGIST, 0 NS (Bolus) No 500 mL, Ervin marybel IV 2-19 500 ml/hr, l 12:04: Infuse Constantia 00 Over: 1 hr, Route: IV, 500, Drug form: INJ, ONCE, Priority: STAT, Dosing Weight 54.682 kg, Start date: 12/30/21 6:04:00 CATH LAB RADIOLOGICAL TECHNOLOGIST, Stop date: 12/30/21 6:04:00 CATH LAB RADIOLOGICAL TECHNOLOGIST, 0 sennosides, No Notes: Ervin marybel CARE HOME 2-19 (Same as: l 03:00: Senokot) tamsulosin No Notes: Memor ia 2-19 (Same As: l 03:00: Flomax) "Do Not Crush" gabapentin No Notes: Memor ia 100 MG Oral 2-19 (Same as: l Capsule 03:00: Neurontin) Herm chandu remove No Notes: Memoria patch 2-19 Remove l 03:00: patch 12 Syed 00 hours after applicatio n each day. sennosides, No Notes: Ervin marybel CARE HOME 2-19 (Same as: l 03:00: Senokot) Syed tamsulosin No Notes: Memor ia 2-19 (Same As: l 03:00: Flomax) Syed "Do Not Crush" gabapentin No Notes: Memor ia 100 MG Oral 2-19 (Same as: l Capsule 03:00: Neurontin) Herm chandu remove No Notes: Memoria patch 2-19 Remove l 03:00: patch 12 [place] 00 hours after applicatio n each day. sennosides, No Notes: Ervin marybel CARE HOME 2-19 (Same as: l 03:00: Senokot) Syed tamsulosin No Notes: Memor ia 2-19 (Same As: l 03:00: Flomax) Syed "Do Not Crush" gabapentin No Notes: Memor ia 100 MG Oral 2-19 (Same as: l Capsule 03:00: Neurontin) Herm chandu remove No Notes: Memoria patch 2-19 Remove l 03:00: patch 12 [place] 00 hours after applicatio n each day. sennosides, No Notes: Ervin marybel CARE HOME 2-19 (Same as: l 03:00: Senokot) [place] 00 tamsulosin No Notes: Memor ia 2-19 (Same As: l 03:00: Flomax) Syed 00 "Do Not Crush" gabapentin No Notes: Memor ia 100 MG Oral 2-19 (Same as: l Capsule 03:00: Neurontin) Herm chandu remove No Notes: Memoria patch 2-19 Remove l 03:00: patch 12 Syed 00 hours after applicatio n each day. sennosides, No Notes: Ervin marybel CARE HOME 2-19 (Same as: l 03:00: Senokot) [place] tamsulosin No Notes: Memor ia 2-19 (Same As: l 03:00: Flomax) Constant[place] 00 "Do Not Crush" gabapentin No Notes: Memor ia 100 MG Oral 2-19 (Same as: l Capsule 03:00: Neurontin) Herm chandu remove No Notes: Memoria patch 2-19 Remove l 03:00: patch 12 [place] 00 hours after applicatio n each day. sennosides, No Notes: Ervin marybel CARE HOME 2-19 (Same as: l 03:00: Senokot) [place] tamsulosin No Notes: Memor ia 2-19 (Same As: l 03:00: Flomax) [place] "Do Not Crush" gabapentin No Notes: Memor ia 100 MG Oral 2-19 (Same as: l Capsule 03:00: Neurontin) Herm chandu remove No Notes: Memoria patch 2-19 Remove l 03:00: patch 12 Syed 00 hours after applicatio n each day. sennosides, No Notes: Ervin marybel CARE HOME 2-19 (Same as: l 03:00: Senokot) [place] tamsulosin No Notes: Memor ia 2-19 (Same As: l 03:00: Flomax) [place] 00 "Do Not Crush" gabapentin No Notes: Memor ia 100 MG Oral 2-19 (Same as: l Capsule 03:00: Neurontin) Herm chandu remove No Notes: Memoria patch 2-19 Remove l 03:00: patch 12 Syed 00 hours after applicatio n each day. sennosides, No Notes: Ervin marybel CARE HOME 2-19 (Same as: l 03:00: Senokot) [place] tamsulosin No Notes: Memor ia 2-19 (Same As: l 03:00: Flomax) Syed 00 "Do Not Crush" gabapentin No Notes: Memor ia 100 MG Oral 2-19 (Same as: l Capsule 03:00: Neurontin) Herm chandu remove No Notes: Memoria patch 2-19 Remove l 03:00: patch 12 Syed 00 hours after applicatio n each day. sennosides, No Notes: Ervin marybel CARE HOME 2-19 (Same as: l 03:00: Senokot) [place] tamsulosin No Notes: Memor ia 2-19 (Same As: l 03:00: Flomax) Syed "Do Not Crush" gabapentin No Notes: Memor ia 100 MG Oral 2-19 (Same as: l Capsule 03:00: Neurontin) Herm chandu remove No Notes: Memoria patch 2-19 Remove l 03:00: patch 12 Syed 00 hours after applicatio n each day. sennosides, No Notes: Ervin marybel CARE HOME 2-19 (Same as: l 03:00: Senokot) [place] tamsulosin No Notes: Memor ia 2-19 (Same As: l 03:00: Flomax) Syed "Do Not Crush" gabapentin No Notes: Memor ia 100 MG Oral 2-19 (Same as: l Capsule 03:00: Neurontin) Herm chandu remove No Notes: Memoria patch 2-19 Remove l 03:00: patch 12 [place] 00 hours after applicatio n each day. sennosides, No Notes: Ervin marybel CARE HOME 2-19 (Same as: l 03:00: Senokot) [place] tamsulosin No Notes: Memor ia 2-19 (Same As: l 03:00: Flomax) Syed 00 "Do Not Crush" gabapentin No Notes: Memor ia 100 MG Oral 2-19 (Same as: l Capsule 03:00: Neurontin) Herm chandu remove No Notes: Memoria patch 2-19 Remove l 03:00: patch 12 Syed 00 hours after applicatio n each day. sennosides, No Notes: Ervin marybel CARE HOME 2-19 (Same as: l 03:00: Senokot) [place] tamsulosin 2022-0 No Notes: Memor ia 2-19 (Same As: l 03:00: Flomax) [place] 00 "Do Not Crush" gabapentin No Notes: Memor ia 100 MG Oral 2-19 (Same as: l Capsule 03:00: Neurontin) Herm chandu 00 remove No Notes: Memoria patch 2-19 Remove l 03:00: patch 12 Syed 00 hours after applicatio n each day. Lexiscan No Notes: Memoria 2-18 Same as: l 23:00: Lexgilma Lynch MEDICATION WASTE Product Size: 0.4 mg Product Wasted: ___ mg Lexiscan No Notes: Memoria 2-18 Same as: l 23:00: Cristiane Lynch MEDICATION WASTE Product Size: 0.4 mg Product Wasted: ___ mg Lexiscan No Notes: Memoria 2-18 Same as: l 23:00: Cristiane Lynch MEDICATION WASTE Product Size: 0.4 mg Product Wasted: ___ mg Lexiscan No Notes: Memoria 2-18 Same as: l 23:00: Cristiane Lynch MEDICATION WASTE Product Size: 0.4 mg Product Wasted: ___ mg Lexiscan No Notes: Memoria 2-18 Same as: l 23:00: Lexgilma Lynch MEDICATION WASTE Product Size: 0.4 mg Product Wasted: ___ mg Lexiscan No Notes: Memoria 2-18 Same as: l 23:00: Lexgilma Lynch MEDICATION WASTE Product Size: 0.4 mg Product Wasted: ___ mg Lexiscan No Notes: [facility]oria 2-18 Same as: l 23:00: Lexgilma Lynch MEDICATION WASTE Product Size: 0.4 mg Product Wasted: ___ mg Lexiscan No Notes: Memoria 2-18 Same as: l 23:00: Lexgilma Lynch MEDICATION WASTE Product Size: 0.4 mg Product Wasted: ___ mg Lexiscan No Notes: [facility]oria 2-18 Same as: l 23:00: Lexiscan Syed 00 MEDICATION WASTE Product Size: 0.4 mg Product Wasted: ___ mg Lexiscan No Notes: Memoria 2-18 Same as: l 23:00: Lexiscan [place] 00 MEDICATION WASTE Product Size: 0.4 mg Product Wasted: ___ mg Lexiscan No Notes: Memoria 2-18 Same as: l 23:00: Lexiscan Syed 00 MEDICATION WASTE Product Size: 0.4 mg Product Wasted: ___ mg Lexiscan No Notes: Memoria 218 Same as: l 23:00: Lexiscan [place] 00 MEDICATION WASTE Product Size: 0.4 mg Product Wasted: ___ mg heparin No Notes: Memoria 2-18 porcine l 20:00: heparin [place] 00 heparin No Notes: Memoria 2-18 porcine l 20:00: heparin Syed 00 heparin No Notes: Memoria 2-18 porcine l 20:00: heparin Syed 00 heparin 0 No Notes: Memoria 2-18 porcine l 20:00: heparin [place] 00 heparin No Notes: Memoria 2-18 porcine l 20:00: heparin Syed 00 heparin No Notes: Memoria 2-18 porcine l 20:00: heparin [place] 00 heparin No Notes: Memoria 2-18 porcine l 20:00: heparin [place] 00 heparin No Notes: Memoria 2-18 porcine l 20:00: heparin [place] 00 heparin 0 No Notes: Memoria 2-18 porcine l 20:00: heparin Syed 00 heparin 0 No Notes: Memoria 2-18 porcine l 20:00: heparin Syed 00 heparin No Notes: Memoria 2-18 porcine l 20:00: heparin Syed 00 heparin No Notes: Memoria 2-18 porcine l 20:00: heparin [place] 00 Adenosine 2022-0 No Notes: For Me moria 2-18 diagnostic l 18:10: use only. Constantia 00 (Same as: Adenoscan) MEDICATION WASTE Product Size: 60 mg Product Wasted: ___ mg Adenosine 2022-0 No Notes: For Me moria 2-18 diagnostic l 18:10: use only. Syed 00 (Same as: Adenoscan) MEDICATION WASTE Product Size: 60 mg Product Wasted: ___ mg Adenosine 2022-0 No Notes: For Me moria 2-18 diagnostic l 18:10: use only. Syed 00 (Same as: Adenoscan) MEDICATION WASTE Product Size: 60 mg Product Wasted: ___ mg Adenosine 2022-0 No Notes: For Me moria 2-18 diagnostic l 18:10: use only. Constantia 00 (Same as: Adenoscan) MEDICATION WASTE Product Size: 60 mg Product Wasted: ___ mg Adenosine 2022-0 No Notes: For Me moria 2-18 diagnostic l 18:10: use only. Constantia 00 (Same as: Adenoscan) MEDICATION WASTE Product Size: 60 mg Product Wasted: ___ mg Adenosine 2022-0 No Notes: For Me moria 2-18 diagnostic l 18:10: use only. Constantia 00 (Same as: Adenoscan) MEDICATION WASTE Product Size: 60 mg Product Wasted: ___ mg Adenosine 2022-0 No Notes: For Me moria 2-18 diagnostic l 18:10: use only. Syed 00 (Same as: Adenoscan) MEDICATION WASTE Product Size: 60 mg Product Wasted: ___ mg Adenosine 2022-0 No Notes: For Me moria 2-18 diagnostic l 18:10: use only. Constantia 00 (Same as: Adenoscan) MEDICATION WASTE Product Size: 60 mg Product Wasted: ___ mg Adenosine 2022-0 No Notes: For Me moria 2-18 diagnostic l 18:10: use only. Constantia 00 (Same as: Adenoscan) MEDICATION WASTE Product Size: 60 mg Product Wasted: ___ mg Adenosine 2022-0 No Notes: For Me moria 2-18 diagnostic l 18:10: use only. Syed 00 (Same as: Adenoscan) MEDICATION WASTE Product Size: 60 mg Product Wasted: ___ mg Adenosine 2022-0 No Notes: For Me moria 2-18 diagnostic l 18:10: use only. Syed 00 (Same as: Adenoscan) MEDICATION WASTE Product Size: 60 mg Product Wasted: ___ mg Adenosine 2022-0 No Notes: For Me moria 2-18 diagnostic l 18:10: use only. Syed 00 (Same as: Adenoscan) MEDICATION WASTE Product Size: 60 mg Product Wasted: ___ mg Adenosine 2022-0 No 45.9329 Memor ia 2-18 mg, Route: l 17:17: IVP, ONCE, Constantia 00 Dosing Weight 54.682, kg, Priority: Routine, Start date: 12/29/21 11:17:00 CATH LAB RADIOLOGICAL TECHNOLOGIST, Stop date: 12/29/21 11:17:00 CATH LAB RADIOLOGICAL TECHNOLOGIST Adenosine 2022-0 No 45.9329 Memor ia 2-18 mg, Route: l 17:17: IVP, ONCE, Dosing Weight 54.682, kg, Priority: Routine, Start date: 12/29/21 11:17:00 CATH LAB RADIOLOGICAL TECHNOLOGIST, Stop date: 12/29/21 11:17:00 CATH LAB RADIOLOGICAL TECHNOLOGIST Adenosine 2022-0 No 45.9329 Memor ia 2-18 mg, Route: l 17:17: IVP, ONCE, Dosing Weight 54.682, kg, Priority: Routine, Start date: 12/29/21 11:17:00 CATH LAB RADIOLOGICAL TECHNOLOGIST, Stop date: 12/29/21 11:17:00 CATH LAB RADIOLOGICAL TECHNOLOGIST Adenosine 2022-0 No 45.9329 Memor ia 2-18 mg, Route: l 17:17: IVP, ONCE, Constantia 00 Dosing Weight 54.682, kg, Priority: Routine, Start date: 12/29/21 11:17:00 CATH LAB RADIOLOGICAL TECHNOLOGIST, Stop date: 12/29/21 11:17:00 CATH LAB RADIOLOGICAL TECHNOLOGIST Adenosine 2022-0 No 45.9329 Memor ia 2-18 mg, Route: l 17:17: IVP, ONCE, Syed 00 Dosing Weight 54.682, kg, Priority: Routine, Start date: 12/29/21 11:17:00 CATH LAB RADIOLOGICAL TECHNOLOGIST, Stop date: 12/29/21 11:17:00 CATH LAB RADIOLOGICAL TECHNOLOGIST Adenosine 2022-0 No 45.9329 Memor ia 2-18 mg, Route: l 17:17: IVP, ONCE, Syed Dosing Weight 54.682, kg, Priority: Routine, Start date: 12/29/21 11:17:00 CATH LAB RADIOLOGICAL TECHNOLOGIST, Stop date: 12/29/21 11:17:00 CATH LAB RADIOLOGICAL TECHNOLOGIST Adenosine 2022-0 No 45.9329 Memor ia 2-18 mg, Route: l 17:17: IVP, ONCE, Constantia Dosing Weight 54.682, kg, Priority: Routine, Start date: 12/29/21 11:17:00 CATH LAB RADIOLOGICAL TECHNOLOGIST, Stop date: 12/29/21 11:17:00 CATH LAB RADIOLOGICAL TECHNOLOGIST Adenosine 2022-0 No 45.9329 Memor ia 2-18 mg, Route: l 17:17: IVP, ONCE, Constantia 00 Dosing Weight 54.682, kg, Priority: Routine, Start date: 12/29/21 11:17:00 CATH LAB RADIOLOGICAL TECHNOLOGIST, Stop date: 12/29/21 11:17:00 CATH LAB RADIOLOGICAL TECHNOLOGIST Adenosine 2022-0 No 45.9329 Memor ia 2-18 mg, Route: l 17:17: IVP, ONCE, Syed 00 Dosing Weight 54.682, kg, Priority: Routine, Start date: 12/29/21 11:17:00 CATH LAB RADIOLOGICAL TECHNOLOGIST, Stop date: 12/29/21 11:17:00 CATH LAB RADIOLOGICAL TECHNOLOGIST Adenosine 2022-0 No 45.9329 Memor ia 2-18 mg, Route: l 17:17: IVP, ONCE, Constantia 00 Dosing Weight 54.682, kg, Priority: Routine, Start date: 12/29/21 11:17:00 CATH LAB RADIOLOGICAL TECHNOLOGIST, Stop date: 12/29/21 11:17:00 CATH LAB RADIOLOGICAL TECHNOLOGIST Adenosine 2022-0 No 45.9329 Memor ia 2-18 mg, Route: l 17:17: IVP, ONCE, Constantia Dosing Weight 54.682, kg, Priority: Routine, Start date: 12/29/21 11:17:00 CATH LAB RADIOLOGICAL TECHNOLOGIST, Stop date: 12/29/21 11:17:00 CATH LAB RADIOLOGICAL TECHNOLOGIST Adenosine 2022-0 No 45.9329 Memor ia 2-18 mg, Route: l 17:17: IVP, ONCE, Dosing Weight 54.682, kg, Priority: Routine, Start date: 12/29/21 11:17:00 CATH LAB RADIOLOGICAL TECHNOLOGIST, Stop date: 12/29/21 11:17:00 CATH LAB RADIOLOGICAL TECHNOLOGIST POLYETHYLEN No Notes: Ervin marybel E GLYCOL 2-18 Dissolve l 3350 15:00: in 8 oz of Syed 00 water or juice. (Same as: Miralax) Lidocaine No Notes: Memori a 0.04 MG/MG 2-18 Apply only l Medicated 15:00: once for Herm chandu Patch 00 up to 12 hours in a 24-hour period (12 hours on and 12 hours off). (Same as: Aspercreme Lidocaine Patch) "Remove old patch before applicatio n of new patch" Amiodarone No Notes: Memor ia 2-18 (Same as: l 15:00: Cordarone) Levetiracet No Notes: Ervin marybel am 250 MG 2-18 (Same l Oral Tablet 15:00: as:Keppra) [Keppra] 00 Famotidine No Notes: Memor ia 20 MG Oral 2-18 (Same as: l Tablet 15:00: Pepcid) Plavix No Notes: Memoria 2-18 (Same As: l 15:00: Plavix) Clonazepam No Notes: Memor ia 2-18 (Same As: l 15:00: KlonoPIN) Hazardous Drug Group 3:Reproduc tive risk Hazardous Drug -- Refer to safe handling procedure PPE Matrix Aspirin 81 No Notes: Do Me moria MG Enteric 2-18 not crush l Coated 15:00: or chew. Constantia Tablet 00 (Same As: Ecotrin) POLYETHYLEN No Notes: Ervin marybel E GLYCOL 2-18 Dissolve l 3350 15:00: in 8 oz of Constantia 00 water or juice. (Same as: Miralax) Lidocaine No Notes: Memori a 0.04 MG/MG 2-18 Apply only l Medicated 15:00: once for Herm chandu Patch 00 up to 12 hours in a 24-hour period (12 hours on and 12 hours off). (Same as: Aspercreme Lidocaine Patch) "Remove old patch before applicatio n of new patch" Amiodarone No Notes: Memor ia 2-18 (Same as: l 15:00: Cordarone) Levetiracet No Notes: Ervin marybel am 250 MG 2-18 (Same l Oral Tablet 15:00: as:Keppra) Constantia [Keppra] 00 Famotidine No Notes: Memor ia 20 MG Oral 2-18 (Same as: l Tablet 15:00: Pepcid) Plavix No Notes: Memoria 2-18 (Same As: l 15:00: Plavix) Clonazepam No Notes: Memor ia 2-18 (Same As: l 15:00: KlonoPIN) Hazardous Drug Group 3:Reproduc tive risk Hazardous Drug -- Refer to safe handling procedure PPE Matrix Aspirin 81 No Notes: Do Me moria MG Enteric 2-18 not crush l Coated 15:00: or chew. Syed Tablet 00 (Same As: Ecotrin) POLYETHYLEN No Notes: Ervin marybel E GLYCOL 2-18 Dissolve l 3350 15:00: in 8 oz of [place]ia 00 water or juice. (Same as: Miralax) Lidocaine No Notes: Memori a 0.04 MG/MG 2-18 Apply only l Medicated 15:00: once for Herm chandu Patch 00 up to 12 hours in a 24-hour period (12 hours on and 12 hours off). (Same as: Aspercreme Lidocaine Patch) "Remove old patch before applicatio n of new patch" Amiodarone No Notes: Memor ia 2-18 (Same as: l 15:00: Cordarone) Levetiracet No Notes: Ervin marybel am 250 MG 2-18 (Same l Oral Tablet 15:00: as:Keppra) Syed [Keppra] 00 Famotidine No Notes: Memor ia 20 MG Oral 2-18 (Same as: l Tablet 15:00: Pepcid) Plavix No Notes: Memoria 2-18 (Same As: l 15:00: Plavix) Clonazepam No Notes: Memor ia 2-18 (Same As: l 15:00: KlonoPIN) Hazardous Drug Group 3:Reproduc tive risk Hazardous Drug -- Refer to safe handling procedure PPE Matrix Aspirin 81 No Notes: Do Me moria MG Enteric 2-18 not crush l Coated 15:00: or chew. [place] Tablet 00 (Same As: Ecotrin) POLYETHYLEN No Notes: Ervin marybel E GLYCOL 2-18 Dissolve l 3350 15:00: in 8 oz of Syed 00 water or juice. (Same as: Miralax) Lidocaine No Notes: Memori a 0.04 MG/MG 2-18 Apply only l Medicated 15:00: once for Herm chandu Patch 00 up to 12 hours in a 24-hour period (12 hours on and 12 hours off). (Same as: Aspercreme Lidocaine Patch) "Remove old patch before applicatio n of new patch" Amiodarone No Notes: Memor ia 2-18 (Same as: l 15:00: Cordarone) Levetiracet No Notes: Ervin marybel am 250 MG 2-18 (Same l Oral Tablet 15:00: as:Keppra) [Keppra] Famotidine No Notes: Memor ia 20 MG Oral 2-18 (Same as: l Tablet 15:00: Pepcid) Plavix No Notes: Memoria 2-18 (Same As: l 15:00: Plavix) Clonazepam No Notes: Memor ia 2-18 (Same As: l 15:00: KlonoPIN) Hazardous Drug Group 3:Reproduc tive risk Hazardous Drug -- Refer to safe handling procedure PPE Matrix Aspirin 81 No Notes: Do Me moria MG Enteric 2-18 not crush l Coated 15:00: or chew. [place] Tablet 00 (Same As: Ecotrin) POLYETHYLEN No Notes: Ervin marybel E GLYCOL 2-18 Dissolve l 3350 15:00: in 8 oz of [place]ia 00 water or juice. (Same as: Miralax) Lidocaine No Notes: Memori a 0.04 MG/MG 2-18 Apply only l Medicated 15:00: once for Herm chandu Patch 00 up to 12 hours in a 24-hour period (12 hours on and 12 hours off). (Same as: Aspercreme Lidocaine Patch) "Remove old patch before applicatio n of new patch" Amiodarone No Notes: Memor ia 2-18 (Same as: l 15:00: Cordarone) Levetiracet No Notes: Ervin marybel am 250 MG 2-18 (Same l Oral Tablet 15:00: as:Keppra) [Keppra] 00 Famotidine No Notes: Memor ia 20 MG Oral 2-18 (Same as: l Tablet 15:00: Pepcid) Plavix No Notes: Memoria 2-18 (Same As: l 15:00: Plavix) Clonazepam No Notes: Memor ia 2-18 (Same As: l 15:00: KlonoPIN) Hazardous Drug Group 3:Reproduc tive risk Hazardous Drug -- Refer to safe handling procedure PPE Matrix Aspirin 81 No Notes: Do Me moria MG Enteric 2-18 not crush l Coated 15:00: or chew. [place] Tablet 00 (Same As: Ecotrin) POLYETHYLEN No Notes: Ervin marybel E GLYCOL 2-18 Dissolve l 3350 15:00: in 8 oz of Syed 00 water or juice. (Same as: Miralax) Lidocaine No Notes: Memori a 0.04 MG/MG 2-18 Apply only l Medicated 15:00: once for Herm chandu Patch 00 up to 12 hours in a 24-hour period (12 hours on and 12 hours off). (Same as: Aspercreme Lidocaine Patch) "Remove old patch before applicatio n of new patch" Amiodarone No Notes: Memor ia 2-18 (Same as: l 15:00: Cordarone) Levetiracet No Notes: Ervin marybel am 250 MG 2-18 (Same l Oral Tablet 15:00: as:Keppra) Constantia [Keppra] 00 Famotidine No Notes: Memor ia 20 MG Oral 2-18 (Same as: l Tablet 15:00: Pepcid) Plavix No Notes: Memoria 2-18 (Same As: l 15:00: Plavix) Clonazepam No Notes: Memor ia 2-18 (Same As: l 15:00: KlonoPIN) Hazardous Drug Group 3:Reproduc tive risk Hazardous Drug -- Refer to safe handling procedure PPE Matrix Aspirin 81 No Notes: Do Me moria MG Enteric 2-18 not crush l Coated 15:00: or chew. Constantia Tablet 00 (Same As: Ecotrin) POLYETHYLEN No Notes: Ervin marybel E GLYCOL 2-18 Dissolve l 3350 15:00: in 8 oz of Constantia 00 water or juice. (Same as: Miralax) Lidocaine No Notes: Memori a 0.04 MG/MG 2-18 Apply only l Medicated 15:00: once for Herm chandu Patch 00 up to 12 hours in a 24-hour period (12 hours on and 12 hours off). (Same as: Aspercreme Lidocaine Patch) "Remove old patch before applicatio n of new patch" Amiodarone No Notes: Memor ia 2-18 (Same as: l 15:00: Cordarone) Levetiracet No Notes: Ervin marybel am 250 MG 2-18 (Same l Oral Tablet 15:00: as:Keppra) Constantia [Keppra] 00 Famotidine No Notes: Memor ia 20 MG Oral 2-18 (Same as: l Tablet 15:00: Pepcid) Plavix No Notes: Memoria 2-18 (Same As: l 15:00: Plavix) Clonazepam No Notes: Memor ia 2-18 (Same As: l 15:00: KlonoPIN) Hazardous Drug Group 3:Reproduc tive risk Hazardous Drug -- Refer to safe handling procedure PPE Matrix Aspirin 81 No Notes: Do Me moria MG Enteric 2-18 not crush l Coated 15:00: or chew. Constantia Tablet 00 (Same As: Ecotrin) POLYETHYLEN No Notes: Ervin marybel E GLYCOL 2-18 Dissolve l 3350 15:00: in 8 oz of Constantia 00 water or juice. (Same as: Miralax) Lidocaine No Notes: Memori a 0.04 MG/MG 2-18 Apply only l Medicated 15:00: once for Herm chandu Patch 00 up to 12 hours in a 24-hour period (12 hours on and 12 hours off). (Same as: Aspercreme Lidocaine Patch) "Remove old patch before applicatio n of new patch" Amiodarone No Notes: Memor ia 2-18 (Same as: l 15:00: Cordarone) Levetiracet No Notes: Ervin marybel am 250 MG 2-18 (Same l Oral Tablet 15:00: as:Keppra) [Keppra] 00 Famotidine No Notes: Memor ia 20 MG Oral 2-18 (Same as: l Tablet 15:00: Pepcid) Plavix No Notes: Memoria 2-18 (Same As: l 15:00: Plavix) Clonazepam No Notes: Memor ia 2-18 (Same As: l 15:00: KlonoPIN) Hazardous Drug Group 3:Reproduc tive risk Hazardous Drug -- Refer to safe handling procedure PPE Matrix Aspirin 81 No Notes: Do Me moria MG Enteric 2-18 not crush l Coated 15:00: or chew. Syed Tablet 00 (Same As: Ecotrin) POLYETHYLEN No Notes: Ervin marybel E GLYCOL 2-18 Dissolve l [id number] 15:00: in 8 oz of Syed 00 water or juice. (Same as: Miralax) Lidocaine No Notes: Memori a 0.04 MG/MG 2-18 Apply only l Medicated 15:00: once for Herm chandu Patch 00 up to 12 hours in a 24-hour period (12 hours on and 12 hours off). (Same as: Aspercreme Lidocaine Patch) "Remove old patch before applicatio n of new patch" Amiodarone No Notes: Memor ia 2-18 (Same as: l 15:00: Cordarone) Levetiracet No Notes: Ervin marybel am 250 MG 2-18 (Same l Oral Tablet 15:00: as:Keppra) Syed [Keppra] 00 Famotidine No Notes: Memor ia 20 MG Oral 2-18 (Same as: l Tablet 15:00: Pepcid) Plavix No Notes: Memoria 2-18 (Same As: l 15:00: Plavix) Clonazepam No Notes: Memor ia 2-18 (Same As: l 15:00: KlonoPIN) Hazardous Drug Group 3:Reproduc tive risk Hazardous Drug -- Refer to safe handling procedure PPE Matrix Aspirin 81 No Notes: Do Me moria MG Enteric 2-18 not crush l Coated 15:00: or chew. Syed Tablet 00 (Same As: Ecotrin) POLYETHYLEN No Notes: Ervin marybel E GLYCOL 2-18 Dissolve l 3350 15:00: in 8 oz of Constantia 00 water or juice. (Same as: Miralax) Lidocaine No Notes: Memori a 0.04 MG/MG 2-18 Apply only l Medicated 15:00: once for Herm chandu Patch 00 up to 12 hours in a 24-hour period (12 hours on and 12 hours off). (Same as: Aspercreme Lidocaine Patch) "Remove old patch before applicatio n of new patch" Amiodarone No Notes: Memor ia 2-18 (Same as: l 15:00: Cordarone) Levetiracet No Notes: Ervin marybel am 250 MG 2-18 (Same l Oral Tablet 15:00: as:Keppra) Constantia [Keppra] 00 Famotidine No Notes: Memor ia 20 MG Oral 2-18 (Same as: l Tablet 15:00: Pepcid) Constantia 00 Plavix No Notes: Memoria 2-18 (Same As: l 15:00: Plavix) Clonazepam No Notes: Memor ia 2-18 (Same As: l 15:00: KlonoPIN) Hazardous Drug Group 3:Reproduc tive risk Hazardous Drug -- Refer to safe handling procedure PPE Matrix Aspirin 81 No Notes: Do Me moria MG Enteric 2-18 not crush l Coated 15:00: or chew. Syed Tablet 00 (Same As: Ecotrin) POLYETHYLEN No Notes: Ervin marybel E GLYCOL 2-18 Dissolve l 3350 15:00: in 8 oz of Syed 00 water or juice. (Same as: Miralax) Lidocaine No Notes: Memori a 0.04 MG/MG 2-18 Apply only l Medicated 15:00: once for Herm chandu Patch 00 up to 12 hours in a 24-hour period (12 hours on and 12 hours off). (Same as: Aspercreme Lidocaine Patch) "Remove old patch before applicatio n of new patch" Amiodarone No Notes: Memor ia 2-18 (Same as: l 15:00: Cordarone) Levetiracet No Notes: Ervin marybel am 250 MG 2-18 (Same l Oral Tablet 15:00: as:Keppra) [Keppra] Famotidine No Notes: Memor ia 20 MG Oral 2-18 (Same as: l Tablet 15:00: Pepcid) Plavix No Notes: Memoria 2-18 (Same As: l 15:00: Plavix) Clonazepam No Notes: Memor ia 2-18 (Same As: l 15:00: KlonoPIN) Hazardous Drug Group 3:Reproduc tive risk Hazardous Drug -- Refer to safe handling procedure PPE Matrix Aspirin 81 No Notes: Do Me moria MG Enteric 2-18 not crush l Coated 15:00: or chew. Syed Tablet 00 (Same As: Ecotrin) POLYETHYLEN No Notes: Ervin marybel E GLYCOL 2-18 Dissolve l 3350 15:00: in 8 oz of Syed 00 water or juice. (Same as: Miralax) Lidocaine No Notes: Memori a 0.04 MG/MG 2-18 Apply only l Medicated 15:00: once for Herm chandu Patch 00 up to 12 hours in a 24-hour period (12 hours on and 12 hours off). (Same as: Aspercreme Lidocaine Patch) "Remove old patch before applicatio n of new patch" Amiodarone No Notes: Memor ia 2-18 (Same as: l 15:00: Cordarone) Constantia 00 Levetiracet No Notes: Ervin marybel am 250 MG 2-18 (Same l Oral Tablet 15:00: as:Keppra) Syed [Keppra] 00 Famotidine No Notes: Memor ia 20 MG Oral 2-18 (Same as: l Tablet 15:00: Pepcid) Plavix No Notes: Memoria 2-18 (Same As: l 15:00: Plavix) 00 Clonazepam No Notes: Memor ia 2-18 (Same As: l 15:00: KlonoPIN) 00 Hazardous Drug Group 3:Reproduc tive risk Hazardous Drug -- Refer to safe handling procedure PPE Matrix Aspirin 81 No Notes: Do Me moria MG Enteric 2-18 not crush l Coated 15:00: or chew. Constantia Tablet 00 (Same As: Ecotrin) Thyroxine No Notes: Memori a 2-18 Take 1 l 12:30: hour Syed 00 before or 2 hours after meal; Enteral feeds may interefere with the absorption of this medication . (Same as:Levothr oid, Synthroid) Thyroxine No Notes: Memori a 2-18 Take 1 l 12:30: hour Syed 00 before or 2 hours after meal; Enteral feeds may interefere with the absorption of this medication . (Same as:Levothr oid, Synthroid) Thyroxine No Notes: Memori a 2-18 Take 1 l 12:30: hour Constantia 00 before or 2 hours after meal; Enteral feeds may interefere with the absorption of this medication . (Same as:Levothr oid, Synthroid) Thyroxine No Notes: Memori a 2-18 Take 1 l 12:30: hour Constantia 00 before or 2 hours after meal; Enteral feeds may interefere with the absorption of this medication . (Same as:Levothr oid, Synthroid) Thyroxine No Notes: Memori a 2-18 Take 1 l 12:30: hour Syed 00 before or 2 hours after meal; Enteral feeds may interefere with the absorption of this medication . (Same as:Levothr oid, Synthroid) Thyroxine No Notes: Memori a 2-18 Take 1 l 12:30: hour Constantia 00 before or 2 hours after meal; Enteral feeds may interefere with the absorption of this medication . (Same as:Levothr oid, Synthroid) Thyroxine No Notes: Memori a 2-18 Take 1 l 12:30: hour Constantia 00 before or 2 hours after meal; Enteral feeds may interefere with the absorption of this medication . (Same as:Levothr oid, Synthroid) Thyroxine No Notes: Memori a 2-18 Take 1 l 12:30: hour Constantia 00 before or 2 hours after meal; Enteral feeds may interefere with the absorption of this medication . (Same as:Levothr oid, Synthroid) Thyroxine No Notes: Memori a 2-18 Take 1 l 12:30: hour Constantia 00 before or 2 hours after meal; Enteral feeds may interefere with the absorption of this medication . (Same as:Levothr oid, Synthroid) Thyroxine No Notes: Memori a 2-18 Take 1 l 12:30: hour Constantia 00 before or 2 hours after meal; Enteral feeds may interefere with the absorption of this medication . (Same as:Levothr oid, Synthroid) Thyroxine No Notes: Memori a 2-18 Take 1 l 12:30: hour Constantia 00 before or 2 hours after meal; Enteral feeds may interefere with the absorption of this medication . (Same as:Levothr oid, Synthroid) Thyroxine No Notes: Memori a 2-18 Take 1 l 12:30: hour Syed 00 before or 2 hours after meal; Enteral feeds may interefere with the absorption of this medication . (Same as:Levothr oid, Synthroid) Acetaminoph No Notes: Do M emoria en 2-18 not exceed l 12:00: 4 gm/day. (Same as: Tylenol) gabapentin No 300 mg, 1 Me moria 300 MG Oral 2-18 cap, l Capsule 12:00: Route: PO, Herm Drug form: CAP, Q8H-06, Dosing Weight 54.545, kg, Start date: 12/29/21 6:00:00 CATH LAB RADIOLOGICAL TECHNOLOGIST, Duration: 30 day, Stop date: 01/27/22 22:00:00 CDT Acetaminoph No Notes: Do M emoria en 2-18 not exceed l 12:00: 4 gm/day. (Same as: Tylenol) gabapentin No 300 mg, 1 Me moria 300 MG Oral 2-18 cap, l Capsule 12:00: Route: PO, Drug form: CAP, Q8H-06, Dosing Weight 54.545, kg, Start date: 12/29/21 6:00:00 CATH LAB RADIOLOGICAL TECHNOLOGIST, Duration: 30 day, Stop date: 01/27/22 22:00:00 CDT Acetaminoph 0 No Notes: Do M emoria en 2-18 not exceed l 12:00: 4 gm/day. (Same as: Tylenol) gabapentin No 300 mg, 1 Me moria 300 MG Oral 2-18 cap, l Capsule 12:00: Route: PO, Drug form: CAP, Q8H-06, Dosing Weight 54.545, kg, Start date: 12/29/21 6:00:00 CATH LAB RADIOLOGICAL TECHNOLOGIST, Duration: 30 day, Stop date: 01/27/22 22:00:00 CDT Acetaminoph 0 No Notes: Do M emoria en 2-18 not exceed l 12:00: 4 gm/day. (Same as: Tylenol) gabapentin No 300 mg, 1 Me moria 300 MG Oral 2-18 cap, l Capsule 12:00: Route: PO, Drug form: CAP, Q8H-06, Dosing Weight 54.545, kg, Start date: 12/29/21 6:00:00 CATH LAB RADIOLOGICAL TECHNOLOGIST, Duration: 30 day, Stop date: 01/27/22 22:00:00 CDT Acetaminoph 2021-0 No Notes: Do M emoria en 2-18 not exceed l 12:00: 4 gm/day. (Same as: Tylenol) gabapentin 0 No 300 mg, 1 Me moria 300 MG Oral 2-18 cap, l Capsule 12:00: Route: PO, Herm chandu Drug form: CAP, Q8H-06, Dosing Weight 54.545, kg, Start date: 12/29/21 6:00:00 CATH LAB RADIOLOGICAL TECHNOLOGIST, Duration: 30 day, Stop date: 01/27/22 22:00:00 CDT Acetaminoph 2021-0 No Notes: Do M emoria en 2-18 not exceed l 12:00: 4 gm/day. (Same as: Tylenol) gabapentin 0 No 300 mg, 1 Me moria 300 MG Oral 2-18 cap, l Capsule 12:00: Route: PO, Herm Drug form: CAP, Q8H-06, Dosing Weight 54.545, kg, Start date: 12/29/21 6:00:00 CATH LAB RADIOLOGICAL TECHNOLOGIST, Duration: 30 day, Stop date: 01/27/22 22:00:00 CDT Acetaminoph 2021-0 No Notes: Do M emoria en 2-18 not exceed l 12:00: 4 gm/day. (Same as: Tylenol) gabapentin 0 No 300 mg, 1 Me moria 300 MG Oral 2-18 cap, l Capsule 12:00: Route: PO, Herm Drug form: CAP, Q8H-06, Dosing Weight 54.545, kg, Start date: 12/29/21 6:00:00 CATH LAB RADIOLOGICAL TECHNOLOGIST, Duration: 30 day, Stop date: 01/27/22 22:00:00 CDT Acetaminoph 2021-0 No Notes: Do M emoria en 2-18 not exceed l 12:00: 4 gm/day. (Same as: Tylenol) gabapentin 0 No 300 mg, 1 Me moria 300 MG Oral 2-18 cap, l Capsule 12:00: Route: PO, Herm chandu Drug form: CAP, Q8H-06, Dosing Weight 54.545, kg, Start date: 12/29/21 6:00:00 CATH LAB RADIOLOGICAL TECHNOLOGIST, Duration: 30 day, Stop date: 01/27/22 22:00:00 CDT Acetaminoph 2021-0 No Notes: Do M emoria en 2-18 not exceed l 12:00: 4 gm/day. (Same as: Tylenol) gabapentin 2021-0 No 300 mg, 1 Me moria 300 MG Oral 2-18 cap, l Capsule 12:00: Route: PO, Drug form: CAP, Q8H-06, Dosing Weight 54.545, kg, Start date: 12/29/21 6:00:00 CATH LAB RADIOLOGICAL TECHNOLOGIST, Duration: 30 day, Stop date: 01/27/22 22:00:00 CDT Acetaminoph 2021-0 No Notes: Do M emoria en 2-18 not exceed l 12:00: 4 gm/day. (Same as: Tylenol) gabapentin 2021-0 No 300 mg, 1 Me moria 300 MG Oral 2-18 cap, l Capsule 12:00: Route: PO, Drug form: CAP, Q8H-06, Dosing Weight 54.545, kg, Start date: 12/29/21 6:00:00 CATH LAB RADIOLOGICAL TECHNOLOGIST, Duration: 30 day, Stop date: 01/27/22 22:00:00 CDT Acetaminoph 2021-0 No Notes: Do M emoria en 2-18 not exceed l 12:00: 4 gm/day. (Same as: Tylenol) gabapentin 2021-0 No 300 mg, 1 Me moria 300 MG Oral 2-18 cap, l Capsule 12:00: Route: PO, Drug form: CAP, Q8H-06, Dosing Weight 54.545, kg, Start date: 12/29/21 6:00:00 CATH LAB RADIOLOGICAL TECHNOLOGIST, Duration: 30 day, Stop date: 01/27/22 22:00:00 CDT Acetaminoph 2021-0 No Notes: Do M emoria en 2-18 not exceed l 12:00: 4 gm/day. (Same as: Tylenol) gabapentin 2021-0 No 300 mg, 1 Me moria 300 MG Oral 2-18 cap, l Capsule 12:00: Route: PO, Drug form: CAP, Q8H-06, Dosing Weight 54.545, kg, Start date: 12/29/21 6:00:00 CATH LAB RADIOLOGICAL TECHNOLOGIST, Duration: 30 day, Stop date: 01/27/22 22:00:00 CDT Oxycodone No Notes: Memori a Hydrochlori 2-18 (Same l de 1 MG/ML 08:24: as:'Roxico H ermann Oral 00 done) To Solution be drawn up in 3 mL syr Oxycodone No Notes: Memori a 2-18 (Same as: l 08:24: Roxicodone ) Naloxone No Notes: Memoria 2-18 Same as l 08:24: Narcan Oxycodone No Notes: Memori a Hydrochlori 2-18 (Same l de 1 MG/ML 08:24: as:'Roxico H ermann Oral 00 done) To Solution be drawn up in 3 mL syr Oxycodone No Notes: Memori a 2-18 (Same as: l 08:24: Roxicodone Syed 00 ) Naloxone No Notes: Memoria 2-18 Same as l 08:24: Narcan Oxycodone No Notes: Memori a Hydrochlori 2-18 (Same l de 1 MG/ML 08:24: as:'Roxico H ermann Oral 00 done) To Solution be drawn up in 3 mL syr Oxycodone No Notes: Memori a 2-18 (Same as: l 08:24: Roxicodone Syed 00 ) Naloxone No Notes: Memoria 2-18 Same as l 08:24: Narcan Constantia 00 Oxycodone No Notes: Memori a Hydrochlori 2-18 (Same l de 1 MG/ML 08:24: as:'Roxico H ermann Oral 00 done) To Solution be drawn up in 3 mL syr Oxycodone No Notes: Memori a 2-18 (Same as: l 08:24: Roxicodone Constantia 00 ) Naloxone No Notes: Memoria 2-18 Same as l 08:24: Narcan Constantia 00 Oxycodone No Notes: Memori a Hydrochlori 2-18 (Same l de 1 MG/ML 08:24: as:'Roxico H ermann Oral 00 done) To Solution be drawn up in 3 mL syr Oxycodone No Notes: Memori a 2-18 (Same as: l 08:24: Roxicodone Syed ) Naloxone No Notes: Memoria 2-18 Same as l 08:24: Narcan Syed 00 Oxycodone No Notes: Memori a Hydrochlori 2-18 (Same l de 1 MG/ML 08:24: as:'Roxico H ermann Oral 00 done) To Solution be drawn up in 3 mL syr Oxycodone No Notes: Memori a 2-18 (Same as: l 08:24: Roxicodone Syed ) Naloxone No Notes: Memoria 2-18 Same as l 08:24: Narcan Syed Oxycodone No Notes: Memori a Hydrochlori 2-18 (Same l de 1 MG/ML 08:24: as:'Roxico H ermann Oral 00 done) To Solution be drawn up in 3 mL syr Oxycodone No Notes: Memori a 2-18 (Same as: l 08:24: Roxicodone Syed ) Naloxone No Notes: Memoria 2-18 Same as l 08:24: Narcan Constantia Oxycodone No Notes: Memori a Hydrochlori 2-18 (Same l de 1 MG/ML 08:24: as:'Roxico H ermann Oral 00 done) To Solution be drawn up in 3 mL syr Oxycodone No Notes: Memori a 2-18 (Same as: l 08:24: Roxicodone Syed 00 ) Naloxone No Notes: Memoria 2-18 Same as l 08:24: Narcan Syed 00 Oxycodone No Notes: Memori a Hydrochlori 2-18 (Same l de 1 MG/ML 08:24: as:'Roxico H ermann Oral 00 done) To Solution be drawn up in 3 mL syr Oxycodone No Notes: Memori a 2-18 (Same as: l 08:24: Roxicodone Syed 00 ) Naloxone No Notes: Memoria 2-18 Same as l 08:24: Narcan Constantia 00 Oxycodone No Notes: Memori a Hydrochlori 2-18 (Same l de 1 MG/ML 08:24: as:'Roxico H ermann Oral 00 done) To Solution be drawn up in 3 mL syr Oxycodone No Notes: Memori a 2-18 (Same as: l 08:24: Roxicodone Constantia 00 ) Naloxone No Notes: Memoria 2-18 Same as l 08:24: Narcan Constantia 00 Oxycodone No Notes: Memori a Hydrochlori 2-18 (Same l de 1 MG/ML 08:24: as:'Roxico H ermann Oral 00 done) To Solution be drawn up in 3 mL syr Oxycodone No Notes: Memori a 2-18 (Same as: l 08:24: Roxicodone Syed 00 ) Naloxone No Notes: Memoria 2-18 Same as l 08:24: Narcan Syed 00 Oxycodone No Notes: Memori a Hydrochlori 2-18 (Same l de 1 MG/ML 08:24: as:'Roxico H ermann Oral 00 done) To Solution be drawn up in 3 mL syr Oxycodone No Notes: Memori a 2-18 (Same as: l 08:24: Roxicodone Constantia 00 ) Naloxone No Notes: Memoria 2-18 Same as l 08:24: Narcan Syed 00 AMIODarone Yes 200 mg = 1 M emoria 200 mg oral 2-18 tab, PO, l tablet 07:55: Daily, # Syed 00 90 tab, 3 Refill(s) AMIODarone Yes 200 mg = 1 M emoria 200 mg oral 2-18 tab, PO, l tablet 07:55: Daily, # Constantia 00 90 tab, 3 Refill(s) AMIODarone 2-0 Yes 200 mg = 1 M emoria 200 mg oral 2-18 tab, PO, l tablet 07:55: Daily, # Syed 90 tab, 3 Refill(s) AMIODarone 2021-0 Yes 200 mg = 1 M emoria 200 mg oral 2-18 tab, PO, l tablet 07:55: Daily, # Constantia 90 tab, 3 Refill(s) AMIODarone 2021-0 Yes 200 mg = 1 M emoria 200 mg oral 2-18 tab, PO, l tablet 07:55: Daily, # Syed 90 tab, 3 Refill(s) AMIODarone 2021-0 Yes 200 mg = 1 M emoria 200 mg oral 2-18 tab, PO, l tablet 07:55: Daily, # Constantia 90 tab, 3 Refill(s) AMIODarone 2021-0 Yes 200 mg = 1 M emoria 200 mg oral 2-18 tab, PO, l tablet 07:55: Daily, # Syed 90 tab, 3 Refill(s) AMIODarone 2021-0 Yes 200 mg = 1 M emoria 200 mg oral 2-18 tab, PO, l tablet 07:55: Daily, # Constantia 90 tab, 3 Refill(s) AMIODarone 2021-0 Yes 200 mg = 1 M emoria 200 mg oral 2-18 tab, PO, l tablet 07:55: Daily, # Syed 90 tab, 3 Refill(s) AMIODarone 2021-0 Yes 200 mg = 1 M emoria 200 mg oral 2-18 tab, PO, l tablet 07:55: Daily, # Syed 90 tab, 3 Refill(s) AMIODarone 2021-0 Yes 200 mg = 1 M emoria 200 mg oral 2-18 tab, PO, l tablet 07:55: Daily, # Constantia 90 tab, 3 Refill(s) AMIODarone 2021-0 Yes 200 mg = 1 M emoria 200 mg oral 2-18 tab, PO, l tablet 07:55: Daily, # Constantia 00 90 tab, 3 Refill(s) tamsulosin 2021-0 No 0.4 mg = 1 M emoria 0.4 mg oral 2-18 cap, PO, l capsule 07:54: Bedtime, # Herm chandu 00 30 cap, 0 Refill(s) tamsulosin 2022-0 No 0.4 mg = 1 M emoria 0.4 mg oral 2-18 cap, PO, l capsule 07:54: Bedtime, # Herm chandu 00 30 cap, 0 Refill(s) tamsulosin 2022-0 No 0.4 mg = 1 M emoria 0.4 mg oral 2-18 cap, PO, l capsule 07:54: Bedtime, # Herm chandu 00 30 cap, 0 Refill(s) tamsulosin 2022-0 No 0.4 mg = 1 M emoria 0.4 mg oral 2-18 cap, PO, l capsule 07:54: Bedtime, # Herm chandu 00 30 cap, 0 Refill(s) tamsulosin 2022-0 No 0.4 mg = 1 M emoria 0.4 mg oral 2-18 cap, PO, l capsule 07:54: Bedtime, # Herm chandu 00 30 cap, 0 Refill(s) tamsulosin 2022-0 No 0.4 mg = 1 M emoria 0.4 mg oral 2-18 cap, PO, l capsule 07:54: Bedtime, # Herm chandu 00 30 cap, 0 Refill(s) tamsulosin 2022-0 No 0.4 mg = 1 M emoria 0.4 mg oral 2-18 cap, PO, l capsule 07:54: Bedtime, # Herm chandu 00 30 cap, 0 Refill(s) tamsulosin 2022-0 No 0.4 mg = 1 M emoria 0.4 mg oral 2-18 cap, PO, l capsule 07:54: Bedtime, # Herm chandu 00 30 cap, 0 Refill(s) tamsulosin 2022-0 No 0.4 mg = 1 M emoria 0.4 mg oral 2-18 cap, PO, l capsule 07:54: Bedtime, # Herm chandu 00 30 cap, 0 Refill(s) tamsulosin 2022-0 No 0.4 mg = 1 M emoria 0.4 mg oral 2-18 cap, PO, l capsule 07:54: Bedtime, # Herm chandu 00 30 cap, 0 Refill(s) tamsulosin 2022-0 No 0.4 mg = 1 M emoria 0.4 mg oral 2-18 cap, PO, l capsule 07:54: Bedtime, # Herm chandu 00 30 cap, 0 Refill(s) tamsulosin 2022-0 No 0.4 mg = 1 M emoria 0.4 mg oral 2-18 cap, PO, l capsule 07:54: Bedtime, # Herm chandu 00 30 cap, 0 Refill(s) Furosemide 2022-0 No 20 mg = 1 Me moria 20 MG Oral 2-18 tab, PO, l Tablet 07:53: Daily, # Syed 00 30 tab, 0 Refill(s) Furosemide 2022-0 No 20 mg = 1 Me moria 20 MG Oral 2-18 tab, PO, l Tablet 07:53: Daily, # Constantia 00 30 tab, 0 Refill(s) Furosemide 2022-0 No 20 mg = 1 Me moria 20 MG Oral 2-18 tab, PO, l Tablet 07:53: Daily, # Syed 00 30 tab, 0 Refill(s) Furosemide 2022-0 No 20 mg = 1 Me moria 20 MG Oral 2-18 tab, PO, l Tablet 07:53: Daily, # Syed 00 30 tab, 0 Refill(s) Furosemide 2022-0 No 20 mg = 1 Me moria 20 MG Oral 2-18 tab, PO, l Tablet 07:53: Daily, # Constantia 00 30 tab, 0 Refill(s) Furosemide 2022-0 No 20 mg = 1 Me moria 20 MG Oral 2-18 tab, PO, l Tablet 07:53: Daily, # Constantia 00 30 tab, 0 Refill(s) Furosemide 2022-0 No 20 mg = 1 Me moria 20 MG Oral 2-18 tab, PO, l Tablet 07:53: Daily, # Syed 00 30 tab, 0 Refill(s) Furosemide 2022-0 No 20 mg = 1 Me moria 20 MG Oral 2-18 tab, PO, l Tablet 07:53: Daily, # Syed 00 30 tab, 0 Refill(s) Furosemide 2022-0 No 20 mg = 1 Me moria 20 MG Oral 2-18 tab, PO, l Tablet 07:53: Daily, # Syed 00 30 tab, 0 Refill(s) Furosemide 2-0 No 20 mg = 1 Me moria 20 MG Oral 2-18 tab, PO, l Tablet 07:53: Daily, # Constantia 00 30 tab, 0 Refill(s) Furosemide 2-0 No 20 mg = 1 Me moria 20 MG Oral 2-18 tab, PO, l Tablet 07:53: Daily, # Constantia 00 30 tab, 0 Refill(s) Furosemide 2-0 No 20 mg = 1 Me moria 20 MG Oral 2-18 tab, PO, l Tablet 07:53: Daily, # Constantia 00 30 tab, 0 Refill(s) levothyroxi 2021-0 Yes 100 Memori a ne 100 mcg 2-18 microgram l (0.1 mg) 07:52: = 1 tab, Allyn nn oral tablet 00 PO, Daily, # 30 tab, 0 Refill(s) levothyroxi 2021-0 Yes 100 Memori a ne 100 mcg 2-18 microgram l (0.1 mg) 07:52: = 1 tab, Allyn nn oral tablet 00 PO, Daily, # 30 tab, 0 Refill(s) levothyroxi 2021-0 Yes 100 Memori a ne 100 mcg 2-18 microgram l (0.1 mg) 07:52: = 1 tab, Allyn nn oral tablet 00 PO, Daily, # 30 tab, 0 Refill(s) levothyroxi 2-0 Yes 100 Memori a ne 100 mcg 2-18 microgram l (0.1 mg) 07:52: = 1 tab, Allyn nn oral tablet 00 PO, Daily, # 30 tab, 0 Refill(s) levothyroxi 2021-0 Yes 100 Memori a ne 100 mcg 2-18 microgram l (0.1 mg) 07:52: = 1 tab, Allyn nn oral tablet 00 PO, Daily, # 30 tab, 0 Refill(s) levothyroxi 2-0 Yes 100 Memori a ne 100 mcg 2-18 microgram l (0.1 mg) 07:52: = 1 tab, Allyn nn oral tablet 00 PO, Daily, # 30 tab, 0 Refill(s) levothyroxi 2-0 Yes 100 Memori a ne 100 mcg 2-18 microgram l (0.1 mg) 07:52: = 1 tab, Allyn nn oral tablet 00 PO, Daily, # 30 tab, 0 Refill(s) levothyroxi 2021-0 Yes 100 Memori a ne 100 mcg 2-18 microgram l (0.1 mg) 07:52: = 1 tab, Allyn nn oral tablet 00 PO, Daily, # 30 tab, 0 Refill(s) levothyroxi 2021-0 Yes 100 Memori a ne 100 mcg 2-18 microgram l (0.1 mg) 07:52: = 1 tab, Allyn nn oral tablet 00 PO, Daily, # 30 tab, 0 Refill(s) levothyroxi 2021-0 Yes 100 Memori a ne 100 mcg 2-18 microgram l (0.1 mg) 07:52: = 1 tab, Allyn nn oral tablet 00 PO, Daily, # 30 tab, 0 Refill(s) levothyroxi 2021-0 Yes 100 Memori a ne 100 mcg 2-18 microgram l (0.1 mg) 07:52: = 1 tab, Allyn nn oral tablet 00 PO, Daily, # 30 tab, 0 Refill(s) levothyroxi 2021-0 Yes 100 Memori a ne 100 mcg 2-18 microgram l (0.1 mg) 07:52: = 1 tab, Allyn nn oral tablet 00 PO, Daily, # 30 tab, 0 Refill(s) Aspirin 81 2021-0 No 81 mg = 1 Me moria MG Enteric 2-18 tab, PO, l Coated 07:49: Daily, # Constantia Tablet 00 90 tab, 3 Refill(s) Aspirin 81 2021-0 No 81 mg = 1 Me moria MG Enteric 2-18 tab, PO, l Coated 07:49: Daily, # Constantia Tablet 00 90 tab, 3 Refill(s) Aspirin 81 2021-0 No 81 mg = 1 Me moria MG Enteric 2-18 tab, PO, l Coated 07:49: Daily, # Syed Tablet 00 90 tab, 3 Refill(s) Aspirin 81 2021-0 No 81 mg = 1 Me moria MG Enteric 2-18 tab, PO, l Coated 07:49: Daily, # Constantia Tablet 00 90 tab, 3 Refill(s) Aspirin 81 2021-0 No 81 mg = 1 Me moria MG Enteric 2-18 tab, PO, l Coated 07:49: Daily, # Constantia Tablet 00 90 tab, 3 Refill(s) Aspirin 81 2021-0 No 81 mg = 1 Me moria MG Enteric 2-18 tab, PO, l Coated 07:49: Daily, # Syed Tablet 00 90 tab, 3 Refill(s) Aspirin 81 2021-0 No 81 mg = 1 Me moria MG Enteric 2-18 tab, PO, l Coated 07:49: Daily, # Constantia Tablet 00 90 tab, 3 Refill(s) Aspirin 81 2021-0 No 81 mg = 1 Me moria MG Enteric 2-18 tab, PO, l Coated 07:49: Daily, # Syed Tablet 00 90 tab, 3 Refill(s) Aspirin 81 2021-0 No 81 mg = 1 Me moria [facility] 2-18 tab, PO, l Coated 07:49: Daily, # Syed Tablet 00 90 tab, 3 Refill(s) Aspirin 81 2021-0 No 81 mg = 1 Me moria [facility] 2-18 tab, PO, l Coated 07:49: Daily, # Constantia Tablet 00 90 tab, 3 Refill(s) Aspirin 81 2021-0 No 81 mg = 1 Me moria [facility]ic 2-18 tab, PO, l Coated 07:49: Daily, # Syed Tablet 00 90 tab, 3 Refill(s) Aspirin 81 2021-0 No 81 mg = 1 Me moria [facility] 2-18 tab, PO, l Coated 07:49: Daily, # Constantia Tablet 00 90 tab, 3 Refill(s) Lactated 2021-0 No 1,000 mL, Ervin marybel Ringers IV -18 Rate: 75 l 1,000 mL 07:46: ml/hr, Syed 00 Infuse over: 13.3 hr, Route: IV, Dosing Weight 54.545 kg, Total Volume: 1,000, Priority: NOW, Start date: 12/29/21 1:46:00 [facility] [employer]IOLOGICAL TECHNOLOGIST, Duration: 1 doses or times, Stop date: 12/29/21 15:03:00 CATH [employer] RADIOLOGICAL TECHNOLOGIST, BSA: 1.59 m2, 0 Lactated 2021-0 No 1,000 mL, Ervin marybel Ringers IV -18 Rate: 75 l 1,000 mL 07:46: ml/hr, Syed 00 Infuse over: 13.3 hr, Route: IV, Dosing Weight 54.545 kg, Total Volume: 1,000, Priority: NOW, Start date: 12/29/21 1:46:00 CATH [employer] RADIOLOGICAL TECHNOLOGIST, Duration: 1 doses or times, Stop date: 12/29/21 15:03:00 CATH LAB RADIOLOGICAL TECHNOLOGIST, BSA: 1.59 m2, 0 Lactated 2022-0 No 1,000 mL, Ervin marybel Ringers IV 2-18 Rate: 75 l 1,000 mL 07:46: ml/hr, Constantia Infuse over: 13.3 hr, Route: IV, Dosing Weight 54.545 kg, Total Volume: 1,000, Priority: NOW, Start date: 12/29/21 1:46:00 CATH [employer] RADIOLOGICAL TECHNOLOGIST, Duration: 1 doses or times, Stop date: 12/29/21 15:03:00 CATH LAB RADIOLOGICAL TECHNOLOGIST, BSA: 1.59 m2, 0 Lactated 2022-0 No 1,000 mL, Ervin marybel Ringers IV 2-18 Rate: 75 l 1,000 mL 07:46: ml/hr, Constantia Infuse over: 13.3 hr, Route: IV, Dosing Weight 54.545 kg, Total Volume: 1,000, Priority: NOW, Start date: 12/29/21 1:46:00 CATH [employer] RADIOLOGICAL TECHNOLOGIST, Duration: 1 doses or times, Stop date: 12/29/21 15:03:00 CATH LAB RADIOLOGICAL TECHNOLOGIST, BSA: 1.59 m2, 0 Lactated 2022-0 No 1,000 mL, Ervin marybel Ringers IV 2-18 Rate: 75 l 1,000 mL 07:46: ml/hr, Syed Infuse over: 13.3 hr, Route: IV, Dosing Weight 54.545 kg, Total Volume: 1,000, Priority: NOW, Start date: 12/29/21 1:46:00 CATH [employer] RADIOLOGICAL TECHNOLOGIST, Duration: 1 doses or times, Stop date: 12/29/21 15:03:00 CATH LAB RADIOLOGICAL TECHNOLOGIST, BSA: 1.59 m2, 0 Lactated 2022-0 No 1,000 mL, Ervin marybel Ringers IV 2-18 Rate: 75 l 1,000 mL 07:46: ml/hr, Syed 00 Infuse over: 13.3 hr, Route: IV, Dosing Weight 54.545 kg, Total Volume: 1,000, Priority: NOW, Start date: 12/29/21 1:46:00 CATH LAB RADIOLOGICAL TECHNOLOGIST, Duration: 1 doses or times, Stop date: 12/29/21 15:03:00 CATH LAB RADIOLOGICAL TECHNOLOGIST, BSA: 1.59 m2, 0 Lactated 2022-0 No 1,000 mL, Ervin marybel Ringers IV 2-18 Rate: 75 l 1,000 mL 07:46: ml/hr, Syed 00 Infuse over: 13.3 hr, Route: IV, Dosing Weight 54.545 kg, Total Volume: 1,000, Priority: NOW, Start date: 12/29/21 1:46:00 CATH LAB RADIOLOGICAL TECHNOLOGIST, Duration: 1 doses or times, Stop date: 12/29/21 15:03:00 CATH LAB RADIOLOGICAL TECHNOLOGIST, BSA: 1.59 m2, 0 Lactated 2022-0 No 1,000 mL, Ervin marybel Ringers IV 2-18 Rate: 75 l 1,000 mL 07:46: ml/hr, Syed 00 Infuse over: 13.3 hr, Route: IV, Dosing Weight 54.545 kg, Total Volume: 1,000, Priority: NOW, Start date: 12/29/21 1:46:00 CATH LAB RADIOLOGICAL TECHNOLOGIST, Duration: 1 doses or times, Stop date: 12/29/21 15:03:00 CATH LAB RADIOLOGICAL TECHNOLOGIST, BSA: 1.59 m2, 0 Lactated 2022-0 No 1,000 mL, Ervin marybel Ringers IV 2-18 Rate: 75 l 1,000 mL 07:46: ml/hr, Syed 00 Infuse over: 13.3 hr, Route: IV, Dosing Weight 54.545 kg, Total Volume: 1,000, Priority: NOW, Start date: 12/29/21 1:46:00 CATH LAB RADIOLOGICAL TECHNOLOGIST, Duration: 1 doses or times, Stop date: 12/29/21 15:03:00 CATH LAB RADIOLOGICAL TECHNOLOGIST, BSA: 1.59 m2, 0 Lactated 2022-0 No 1,000 mL, Ervin marybel Ringers IV 2-18 Rate: 75 l 1,000 mL 07:46: ml/hr, Constantia 00 Infuse over: 13.3 hr, Route: IV, Dosing Weight 54.545 kg, Total Volume: 1,000, Priority: NOW, Start date: 12/29/21 1:46:00 CATH LAB RADIOLOGICAL TECHNOLOGIST, Duration: 1 doses or times, Stop date: 12/29/21 15:03:00 CATH LAB RADIOLOGICAL TECHNOLOGIST, BSA: 1.59 m2, 0 Lactated No 1,000 mL, Ervin marybel Ringers IV 2-18 Rate: 75 l 1,000 mL 07:46: ml/hr, Constantia 00 Infuse over: 13.3 hr, Route: IV, Dosing Weight 54.545 kg, Total Volume: 1,000, Priority: NOW, Start date: 12/29/21 1:46:00 CATH LAB RADIOLOGICAL TECHNOLOGIST, Duration: 1 doses or times, Stop date: 12/29/21 15:03:00 CATH LAB RADIOLOGICAL TECHNOLOGIST, BSA: 1.59 m2, 0 Lactated No 1,000 mL, Ervin marybel Ringers IV 2-18 Rate: 75 l 1,000 mL 07:46: ml/hr, Constantia 00 Infuse over: 13.3 hr, Route: IV, Dosing Weight 54.545 kg, Total Volume: 1,000, Priority: NOW, Start date: 12/29/21 1:46:00 CATH LAB RADIOLOGICAL TECHNOLOGIST, Duration: 1 doses or times, Stop date: 12/29/21 15:03:00 CATH LAB RADIOLOGICAL TECHNOLOGIST, BSA: 1.59 m2, 0 Bisacodyl No Notes: Memori a 2-18 (Same As: l 07:45: Dulcolax, Constantia 00 Bisco-Lax) Ondansetron No Notes: Ervin marybel 2-18 (Same as: l 07:45: Zofran) MEDICATION WASTE Product Size: 4 mg Product Wasted: ___ mg Melatonin No Notes: [facility] a 2-18 (Same as: l 07:45: Melatonin) Syed 00 heparin No 5,000 Memoria 2-18 unit, l 07:45: Route: Syed 00 SUB-Q, Q12H, Dosing Weight 54.545, kg, Priority: STAT, Start date: 12/29/21 1:45:00 CATH LAB RADIOLOGICAL TECHNOLOGIST, Stop date: 01/27/22 9:00:00 CDT Bisacodyl No Notes: [facility] a 2-18 (Same As: l 07:45: Dulcolax, Syed 00 Bisco-Lax) Ondansetron No Notes: Ervin marybel 2-18 (Same as: l 07:45: Zofran) Syed 00 MEDICATION WASTE Product Size: 4 mg Product Wasted: ___ mg Melatonin No Notes: [facility]ori a 2-18 (Same as: l 07:45: Melatonin) Constantia heparin No 5,000 Memoria 2-18 unit, l 07:45: Route: Syed 00 SUB-Q, Q12H, Dosing Weight 54.545, kg, Priority: STAT, Start date: 12/29/21 1:45:00 CATH LAB RADIOLOGICAL TECHNOLOGIST, Stop date: 01/27/22 9:00:00 CDT Bisacodyl No Notes: [facility] a 2-18 (Same As: l 07:45: Dulcolax, Constantia 00 Bisco-Lax) Ondansetron No Notes: Ervin marybel 2-18 (Same as: l 07:45: Zofran) Syed 00 MEDICATION WASTE Product Size: 4 mg Product Wasted: ___ mg Melatonin No Notes: [facility]ori a 2-18 (Same as: l 07:45: Melatonin) [place]ia heparin No 5,000 Memoria 2-18 unit, l 07:45: Route: Syed 00 SUB-Q, Q12H, Dosing Weight 54.545, kg, Priority: STAT, Start date: 12/29/21 1:45:00 CATH LAB RADIOLOGICAL TECHNOLOGIST, Stop date: 01/27/22 9:00:00 CDT Bisacodyl No Notes: [facility] a 2-18 (Same As: l 07:45: Dulcolax, [place]ia 00 Bisco-Lax) Ondansetron No Notes: Ervin marybel 2-18 (Same as: l 07:45: Zofran) Syed 00 MEDICATION WASTE Product Size: 4 mg Product Wasted: ___ mg Melatonin No Notes: [facility] a 2-18 (Same as: l 07:45: Melatonin) Constantia 00 heparin No 5,000 Memoria 2-18 unit, l 07:45: Route: [place]ia 00 SUB-Q, Q12H, Dosing Weight 54.545, kg, Priority: STAT, Start date: 12/29/21 1:45:00 CATH LAB RADIOLOGICAL TECHNOLOGIST, Stop date: 01/27/22 9:00:00 CDT Bisacodyl 0 No Notes: [facility] a 2-18 (Same As: l 07:45: Dulcolax, [place]ia 00 Bisco-Lax) Ondansetron No Notes: Ervin marybel 2-18 (Same as: l 07:45: Zofran) Syed 00 MEDICATION WASTE Product Size: 4 mg Product Wasted: ___ mg Melatonin No Notes: [facility] a 2-18 (Same as: l 07:45: Melatonin) Syed heparin No 5,000 Memoria 2-18 unit, l 07:45: Route: Syed 00 SUB-Q, Q12H, Dosing Weight 54.545, kg, Priority: STAT, Start date: 12/29/21 1:45:00 CATH LAB RADIOLOGICAL TECHNOLOGIST, Stop date: 01/27/22 9:00:00 CDT Bisacodyl 0 No Notes: Mem[facility] a 2-18 (Same As: l 07:45: Dulcolax, Syed 00 Bisco-Lax) Ondansetron No Notes: Ervin marybel 2-18 (Same as: l 07:45: Zofran) Constantia 00 MEDICATION WASTE Product Size: 4 mg Product Wasted: ___ mg Melatonin No Notes: Memori a 2-18 (Same as: l 07:45: Melatonin) Syed 00 heparin No 5,000 Memoria 2-18 unit, l 07:45: Route: [place]ia 00 SUB-Q, Q12H, Dosing Weight 54.545, kg, Priority: STAT, Start date: 12/29/21 1:45:00 CATH LAB RADIOLOGICAL TECHNOLOGIST, Stop date: 01/27/22 9:00:00 CDT Bisacodyl 0 No Notes: Memori a 2-18 (Same As: l 07:45: Dulcolax, [place]ia 00 Bisco-Lax) Ondansetron No Notes: Ervin marybel 2-18 (Same as: l 07:45: Zofran) Constantia 00 MEDICATION WASTE Product Size: 4 mg Product Wasted: ___ mg Melatonin No Notes: Memori a 2-18 (Same as: l 07:45: Melatonin) Syed heparin No 5,000 Memoria 2-18 unit, l 07:45: Route: Syed 00 SUB-Q, Q12H, Dosing Weight 54.545, kg, Priority: STAT, Start date: 12/29/21 1:45:00 CATH LAB RADIOLOGICAL TECHNOLOGIST, Stop date: 01/27/22 9:00:00 CDT Bisacodyl No Notes: Memori a 2-18 (Same As: l 07:45: Dulcolax, [place]ia 00 Bisco-Lax) Ondansetron No Notes: Ervin marybel 2-18 (Same as: l 07:45: Zofran) Syed 00 MEDICATION WASTE Product Size: 4 mg Product Wasted: ___ mg Melatonin No Notes: Memori a 2-18 (Same as: l 07:45: Melatonin) [place]ia heparin No 5,000 Memoria 2-18 unit, l 07:45: Route: Syed 00 SUB-Q, Q12H, Dosing Weight 54.545, kg, Priority: STAT, Start date: 12/29/21 1:45:00 CATH LAB RADIOLOGICAL TECHNOLOGIST, Stop date: 01/27/22 9:00:00 CDT Bisacodyl 0 No Notes: Memori a 2-18 (Same As: l 07:45: Dulcolax, Syed 00 Bisco-Lax) Ondansetron No Notes: Ervin marybel 2-18 (Same as: l 07:45: Zofran) Syed 00 MEDICATION WASTE Product Size: 4 mg Product Wasted: ___ mg Melatonin No Notes: Memori a 2-18 (Same as: l 07:45: Melatonin) Syed heparin No 5,000 Memoria 2-18 unit, l 07:45: Route: [place] 00 SUB-Q, Q12H, Dosing Weight 54.545, kg, Priority: STAT, Start date: 12/29/21 1:45:00 CATH LAB RADIOLOGICAL TECHNOLOGIST, Stop date: 01/27/22 9:00:00 CDT Bisacodyl 0 No Notes: Memori a 2-18 (Same As: l 07:45: Dulcolax, Constantia 00 Bisco-Lax) Ondansetron No Notes: Ervin marybel 2-18 (Same as: l 07:45: Zofran) Syed 00 MEDICATION WASTE Product Size: 4 mg Product Wasted: ___ mg Melatonin No Notes: Memori a 2-18 (Same as: l 07:45: Melatonin) Constantia 00 heparin No 5,000 Memoria 2-18 unit, l 07:45: Route: Constantia 00 SUB-Q, Q12H, Dosing Weight 54.545, kg, Priority: STAT, Start date: 12/29/21 1:45:00 CATH LAB RADIOLOGICAL TECHNOLOGIST, Stop date: 01/27/22 9:00:00 CDT Bisacodyl No Notes: Memori a 2-18 (Same As: l 07:45: Dulcolax, Constantia 00 Bisco-Lax) Ondansetron No Notes: Ervin marybel 2-18 (Same as: l 07:45: Zofran) Syed 00 MEDICATION WASTE Product Size: 4 mg Product Wasted: ___ mg Melatonin No Notes: Memori a 2-18 (Same as: l 07:45: Melatonin) Constantia 00 heparin No 5,000 Memoria 2-18 unit, l 07:45: Route: Syed 00 SUB-Q, Q12H, Dosing Weight 54.545, kg, Priority: STAT, Start date: 12/29/21 1:45:00 CATH LAB RADIOLOGICAL TECHNOLOGIST, Stop date: 01/27/22 9:00:00 CDT Bisacodyl 0 No Notes: Memori a 2-18 (Same As: l 07:45: Dulcolax, Syed 00 Bisco-Lax) Ondansetron No Notes: Ervin marybel 2-18 (Same as: l 07:45: Zofran) Syed 00 MEDICATION WASTE Product Size: 4 mg Product Wasted: ___ mg Melatonin No Notes: Memori a 2-18 (Same as: l 07:45: Melatonin) Constantia 00 heparin No 5,000 Memoria 2-18 unit, l 07:45: Route: Constantia 00 SUB-Q, Q12H, Dosing Weight 54.545, kg, Priority: STAT, Start date: 12/29/21 1:45:00 CATH LAB RADIOLOGICAL TECHNOLOGIST, Stop date: 01/27/22 9:00:00 CDT Tylenol No Notes: Max Ervin marybel 2-18 acetaminop l 07:00: hen 4000 Constantia 00 mg/day (4 gm/day). (Same as: Tylenol Extra Strength) Tylenol No Notes: Max Ervin marybel 2-18 acetaminop l 07:00: hen 4000 Syed 00 mg/day (4 gm/day). (Same as: Tylenol Extra Strength) Tylenol No Notes: Max Ervin marybel 2-18 acetaminop l 07:00: hen 4000 Syed 00 mg/day (4 gm/day). (Same as: Tylenol Extra Strength) Tylenol No Notes: Max Ervin marybel 2-18 acetaminop l 07:00: hen 4000 [place]ia 00 mg/day (4 gm/day). (Same as: Tylenol Extra Strength) Tylenol No Notes: Max Ervin marybel 2-18 acetaminop l 07:00: hen 4000 [place]ia 00 mg/day (4 gm/day). (Same as: Tylenol Extra Strength) Tylenol No Notes: Max Ervin marybel 2-18 acetaminop l 07:00: hen 4000 [place]ia 00 mg/day (4 gm/day). (Same as: Tylenol Extra Strength) Tylenol 0 No Notes: Max Ervin marybel 2-18 acetaminop l 07:00: hen 4000 [place] 00 mg/day (4 gm/day). (Same as: Tylenol Extra Strength) Tylenol 0 No Notes: Max Ervin marybel 2-18 acetaminop l 07:00: hen 4000 [place] 00 mg/day (4 gm/day). (Same as: Tylenol Extra Strength) Tylenol 2021-0 No Notes: Max Ervin marybel 2-18 acetaminop l 07:00: hen 4000 Syed 00 mg/day (4 gm/day). (Same as: Tylenol Extra Strength) Tylenol 2021-0 No Notes: Max Ervin marybel 2-18 acetaminop l 07:00: hen 4000 Syed 00 mg/day (4 gm/day). (Same as: Tylenol Extra Strength) Tylenol 2021-0 No Notes: Max Ervin marybel 2-18 acetaminop l 07:00: hen 4000 [place]ia 00 mg/day (4 gm/day). (Same as: Tylenol Extra Strength) Tylenol 2021-0 No Notes: Max Ervin marybel 2-18 acetaminop l 07:00: hen 4000 [place]ia 00 mg/day (4 gm/day). (Same as: Tylenol Extra Strength) Iohexol 2021-0 No 49 mL, Memoria 2-18 Route: l 06:59: IVP, Drug Syed 00 Form: SOLN, Dosing Weight 54.545, kg, ONCALL, STAT, Start date: 12/29/21 0:59:00 CATH LAB RADIOLOGICAL TECHNOLOGIST, Duration: 1 doses or times, Dose = 2.2ml/kg, Max dose = 100ml -- "To be infused by Radiology Staff ONLY" Iohexol 2021-0 No 49 mL, Memoria 2-18 Route: l 06:59: IVP, Drug Constantia 00 Form: SOLN, Dosing Weight 54.545, kg, ONCALL, STAT, Start date: 12/29/21 0:59:00 CATH LAB RADIOLOGICAL TECHNOLOGIST, Duration: 1 doses or times, Dose = 2.2ml/kg, Max dose = 100ml -- "To be infused by Radiology Staff ONLY" Iohexol 2-0 No 49 mL, Memoria 2-18 Route: l 06:59: IVP, Drug Syed 00 Form: SOLN, Dosing Weight 54.545, kg, ONCALL, STAT, Start date: 12/29/21 0:59:00 CATH LAB RADIOLOGICAL TECHNOLOGIST, Duration: 1 doses or times, Dose = 2.2ml/kg, Max dose = 100ml -- "To be infused by Radiology Staff ONLY" Iohexol 2-0 No 49 mL, Memoria 2-18 Route: l 06:59: IVP, Drug Syed 00 Form: SOLN, Dosing Weight 54.545, kg, ONCALL, STAT, Start date: 12/29/21 0:59:00 CATH LAB RADIOLOGICAL TECHNOLOGIST, Duration: 1 doses or times, Dose = 2.2ml/kg, Max dose = 100ml -- "To be infused by Radiology Staff ONLY" Iohexol 2021-0 No 49 mL, Memoria 2-18 Route: l 06:59: IVP, Drug Syed 00 Form: SOLN, Dosing Weight 54.545, kg, ONCALL, STAT, Start date: 12/29/21 0:59:00 CATH LAB RADIOLOGICAL TECHNOLOGIST, Duration: 1 doses or times, Dose = 2.2ml/kg, Max dose = 100ml -- "To be infused by Radiology Staff ONLY" Iohexol 2021-0 No 49 mL, Memoria 2-18 Route: l 06:59: IVP, Drug Syed 00 Form: SOLN, Dosing Weight 54.545, kg, ONCALL, STAT, Start date: 12/29/21 0:59:00 CATH LAB RADIOLOGICAL TECHNOLOGIST, Duration: 1 doses or times, Dose = 2.2ml/kg, Max dose = 100ml -- "To be infused by Radiology Staff ONLY" Iohexol 2021-0 No 49 mL, Memoria 2-18 Route: l 06:59: IVP, Drug Syed 00 Form: SOLN, Dosing Weight 54.545, kg, ONCALL, STAT, Start date: 12/29/21 0:59:00 CATH LAB RADIOLOGICAL TECHNOLOGIST, Duration: 1 doses or times, Dose = 2.2ml/kg, Max dose = 100ml -- "To be infused by Radiology Staff ONLY" Iohexol 2021-0 No 49 mL, Memoria 2-18 Route: l 06:59: IVP, Drug Syed 00 Form: SOLN, Dosing Weight 54.545, kg, ONCALL, STAT, Start date: 12/29/21 0:59:00 CATH LAB RADIOLOGICAL TECHNOLOGIST, Duration: 1 doses or times, Dose = 2.2ml/kg, Max dose = 100ml -- "To be infused by Radiology Staff ONLY" Iohexol 2021-0 No 49 mL, Memoria 2-18 Route: l 06:59: IVP, Drug Syed 00 Form: SOLN, Dosing Weight 54.545, kg, ONCALL, STAT, Start date: 12/29/21 0:59:00 CATH LAB RADIOLOGICAL TECHNOLOGIST, Duration: 1 doses or times, Dose = 2.2ml/kg, Max dose = 100ml -- "To be infused by Radiology Staff ONLY" Iohexol 2021-0 No 49 mL, Memoria 2-18 Route: l 06:59: IVP, Drug Syed 00 Form: SOLN, Dosing Weight 54.545, kg, ONCALL, STAT, Start date: 12/29/21 0:59:00 CATH LAB RADIOLOGICAL TECHNOLOGIST, Duration: 1 doses or times, Dose = 2.2ml/kg, Max dose = 100ml -- "To be infused by Radiology Staff ONLY" Iohexol 2021-0 No 49 mL, Memoria 2-18 Route: l 06:59: IVP, Drug Syed 00 Form: SOLN, Dosing Weight 54.545, kg, ONCALL, STAT, Start date: 12/29/21 0:59:00 CATH LAB RADIOLOGICAL TECHNOLOGIST, Duration: 1 doses or times, Dose = 2.2ml/kg, Max dose = 100ml -- "To be infused by Radiology Staff ONLY" Iohexol 2021-0 No 49 mL, Memoria 2-18 Route: l 06:59: IVP, Drug Syed 00 Form: SOLN, Dosing Weight 54.545, kg, ONCALL, STAT, Start date: 12/29/21 0:59:00 CATH LAB RADIOLOGICAL TECHNOLOGIST, Duration: 1 doses or times, Dose = 2.2ml/kg, Max dose = 100ml -- "To be infused by Radiology Staff ONLY" Thiamine 0 No Notes: [facility] 2-18 (Same As: l 06:12: Vitamin Syed 00 B1) Thiamine 0 No Notes: [facility] 2-18 (Same As: l 06:12: Vitamin Syed 00 B1) Thiamine 0 No Notes: [facility] 2-18 (Same As: l 06:12: Vitamin Syed 00 B1) Thiamine 0 No Notes: [facility] 2-18 (Same As: l 06:12: Vitamin Syed 00 B1) Thiamine 0 No Notes: [facility] 2-18 (Same As: l 06:12: Vitamin Syed 00 B1) Thiamine 0 No Notes: [facility] 2-18 (Same As: l 06:12: Vitamin Syed 00 B1) Thiamine No Notes: [facility]oria 2-18 (Same As: l 06:12: Vitamin Constantia 00 B1) Thiamine No Notes: [facility]oria 2-18 (Same As: l 06:12: Vitamin Constantia 00 B1) Thiamine No Notes: [facility]oria 2-18 (Same As: l 06:12: Vitamin Constantia 00 B1) Thiamine No Notes: [facility] 2-18 (Same As: l 06:12: Vitamin Constantia 00 B1) Thiamine No Notes: [facility] 2-18 (Same As: l 06:12: Vitamin Syed 00 B1) Thiamine No Notes: [facility] 2-18 (Same As: l 06:12: Vitamin Constantia 00 B1) Acetaminoph No Notes: Ervin marybel en 325 MG / 218 (Same as: l Hydrocodone 03:14: [place] nn Bitartrate 00 325/5) Do 5 MG Oral not exceed Tablet 4gm/day of acetaminop hen. Acetaminoph No Notes: Ervin marybel en 325 MG / 2-18 (Same as: l Hydrocodone 03:14: [place] Bitartrate 00 325/5) Do 5 MG Oral not exceed Tablet 4gm/day of acetaminop hen. Acetaminoph No Notes: Ervin marybel en 325 MG / 2-18 (Same as: l Hydrocodone 03:14: [place] [facility] Bitartrate 00 325/5) Do 5 MG Oral not exceed Tablet 4gm/day of acetaminop hen. Acetaminoph No Notes: Ervin marybel en 325 MG / 2-18 (Same as: l Hydrocodone 03:14: [place] [facility] Bitartrate 00 325/5) Do 5 MG Oral not exceed Tablet 4gm/day of acetaminop hen. Acetaminoph No Notes: Ervin marybel en 325 MG / 2-18 (Same as: l Hydrocodone 03:14: [place] [facility] Bitartrate 00 325/5) Do 5 MG Oral not exceed Tablet 4gm/day of acetaminop hen. Acetaminoph No Notes: Ervin marybel en 325 MG / 2-18 (Same as: l Hydrocodone 03:14: [place] [facility] Bitartrate 00 325/5) Do 5 MG Oral not exceed Tablet 4gm/day of acetaminop hen. Acetaminoph No Notes: Ervin marybel en 325 MG / 2-18 (Same as: l Hydrocodone 03:14: [place] [facility] Bitartrate 00 325/5) Do 5 MG Oral not exceed Tablet 4gm/day of acetaminop hen. Acetaminoph No Notes: Ervin marybel en 325 MG / 2-18 (Same as: l Hydrocodone 03:14: [place] [facility] Bitartrate 00 325/5) Do 5 MG Oral not exceed Tablet 4gm/day of acetaminop hen. Acetaminoph No Notes: Ervin marybel en 325 MG / 2-18 (Same as: l Hydrocodone 03:14: [place] [facility] Bitartrate 00 325/5) Do 5 MG Oral not exceed Tablet 4gm/day of acetaminop hen. Acetaminoph No Notes: Ervin marybel en 325 MG / 2-18 (Same as: l Hydrocodone 03:14: [place] [facility] Bitartrate 00 325/5) Do 5 MG Oral not exceed Tablet 4gm/day of acetaminop hen. Acetaminoph No Notes: Ervin marybel en 325 MG / 2-18 (Same as: l Hydrocodone 03:14: [place] [facility] Bitartrate 00 325/5) Do 5 MG Oral not exceed Tablet 4gm/day of acetaminop hen. Acetaminoph No Notes: Ervin marybel en 325 MG / 2-18 (Same as: l Hydrocodone 03:14: [place] [facility] Bitartrate 00 325/5) Do 5 MG Oral not exceed Tablet 4gm/day of acetaminop hen. Calcium No 500 mL, Memoria Chloride 2-18 500 ml/hr, l 0.0014 02:31: Infuse Syed MEQ/ML / 00 Over: 1 Potassium hr, Route: Chloride IV, 500, 0.004 Drug form: MEQ/ML / INJ, ONCE, Sodium Priority: Chloride STAT, 0.103 Dosing MEQ/ML / Weight Sodium 54.545 kg, Lactate Start 0.028 date: MEQ/ML 12/28/21 Injectable 20:31:00 Solution CATH LAB RADIOLOGICAL TECHNOLOGIST, Stop date: 12/28/21 20:31:00 CATH LAB RADIOLOGICAL TECHNOLOGIST, 0 Calcium 2022-0 No 500 mL, Memoria Chloride 2-18 500 ml/hr, l 0.0014 02:31: Infuse Constantia MEQ/ML / 00 Over: 1 Potassium hr, Route: Chloride IV, 500, 0.004 Drug form: MEQ/ML / INJ, ONCE, Sodium Priority: Chloride STAT, 0.103 Dosing MEQ/ML / Weight Sodium 54.545 kg, Lactate Start 0.028 date: MEQ/ML 12/28/21 Injectable 20:31:00 Solution CATH LAB RADIOLOGICAL TECHNOLOGIST, Stop date: 12/28/21 20:31:00 CATH LAB RADIOLOGICAL TECHNOLOGIST, 0 Calcium 2022-0 No 500 mL, [facility] Chloride 2-18 500 ml/hr, l 0.0014 02:31: Infuse Syed MEQ/ML / 00 Over: 1 Potassium hr, Route: Chloride IV, 500, 0.004 Drug form: MEQ/ML / INJ, ONCE, Sodium Priority: Chloride STAT, 0.103 Dosing MEQ/ML / Weight Sodium 54.545 kg, Lactate Start 0.028 date: MEQ/ML 12/28/21 Injectable 20:31:00 Solution CATH LAB RADIOLOGICAL TECHNOLOGIST, Stop date: 12/28/21 20:31:00 CATH LAB RADIOLOGICAL TECHNOLOGIST, 0 Calcium 2022-0 No 500 mL, [facility] Chloride 2-18 500 ml/hr, l 0.0014 02:31: Infuse Constantia MEQ/ML / 00 Over: 1 Potassium hr, Route: Chloride IV, 500, 0.004 Drug form: MEQ/ML / INJ, ONCE, Sodium Priority: Chloride STAT, 0.103 Dosing MEQ/ML / Weight Sodium 54.545 kg, Lactate Start 0.028 date: MEQ/ML 12/28/21 Injectable 20:31:00 Solution CATH LAB RADIOLOGICAL TECHNOLOGIST, Stop date: 12/28/21 20:31:00 CATH LAB RADIOLOGICAL TECHNOLOGIST, 0 Calcium 2022-0 No 500 mL, [facility] Chloride 2-18 500 ml/hr, l 0.0014 02:31: Infuse Syed MEQ/ML / 00 Over: 1 Potassium hr, Route: Chloride IV, 500, 0.004 Drug form: MEQ/ML / INJ, ONCE, Sodium Priority: Chloride STAT, 0.103 Dosing MEQ/ML / Weight Sodium 54.545 kg, Lactate Start 0.028 date: MEQ/ML 12/28/21 Injectable 20:31:00 Solution CATH LAB RADIOLOGICAL TECHNOLOGIST, Stop date: 12/28/21 20:31:00 CATH LAB RADIOLOGICAL TECHNOLOGIST, 0 Calcium 2022-0 No 500 mL, [facility] Chloride 2-18 500 ml/hr, l 0.0014 02:31: Infuse Constantia MEQ/ML / 00 Over: 1 Potassium hr, Route: Chloride IV, 500, 0.004 Drug form: MEQ/ML / INJ, ONCE, Sodium Priority: Chloride STAT, 0.103 Dosing MEQ/ML / Weight Sodium 54.545 kg, Lactate Start 0.028 date: MEQ/ML 12/28/21 Injectable 20:31:00 Solution CATH LAB RADIOLOGICAL TECHNOLOGIST, Stop date: 12/28/21 20:31:00 CATH LAB RADIOLOGICAL TECHNOLOGIST, 0 Calcium 2022-0 No 500 mL, [facility] Chloride 2-18 500 ml/hr, l 0.0014 02:31: Infuse Constantia MEQ/ML / 00 Over: 1 Potassium hr, Route: Chloride IV, 500, 0.004 Drug form: MEQ/ML / INJ, ONCE, Sodium Priority: Chloride STAT, 0.103 Dosing MEQ/ML / Weight Sodium 54.545 kg, Lactate Start 0.028 date: MEQ/ML 12/28/21 Injectable 20:31:00 Solution CATH LAB RADIOLOGICAL TECHNOLOGIST, Stop date: 12/28/21 20:31:00 CATH LAB RADIOLOGICAL TECHNOLOGIST, 0 Calcium 2022-0 No 500 mL, [facility] Chloride 2-18 500 ml/hr, l 0.0014 02:31: Infuse Constantia MEQ/ML / 00 Over: 1 Potassium hr, Route: Chloride IV, 500, 0.004 Drug form: MEQ/ML / INJ, ONCE, Sodium Priority: Chloride STAT, 0.103 Dosing MEQ/ML / Weight Sodium 54.545 kg, Lactate Start 0.028 date: MEQ/ML 12/28/21 Injectable 20:31:00 Solution CATH LAB RADIOLOGICAL TECHNOLOGIST, Stop date: 12/28/21 20:31:00 CATH LAB RADIOLOGICAL TECHNOLOGIST, 0 Calcium 2022-0 No 500 mL, [facility] Chloride 2-18 500 ml/hr, l 0.0014 02:31: Infuse Syed MEQ/ML / 00 Over: 1 Potassium hr, Route: Chloride IV, 500, 0.004 Drug form: MEQ/ML / INJ, ONCE, Sodium Priority: Chloride STAT, 0.103 Dosing MEQ/ML / Weight Sodium 54.545 kg, Lactate Start 0.028 date: MEQ/ML 12/28/21 Injectable 20:31:00 Solution CATH LAB RADIOLOGICAL TECHNOLOGIST, Stop date: 12/28/21 20:31:00 CATH LAB RADIOLOGICAL TECHNOLOGIST, 0 Calcium 2022-0 No 500 mL, Memoria Chloride 2-18 500 ml/hr, l 0.0014 02:31: Infuse Constantia MEQ/ML / 00 Over: 1 Potassium hr, Route: Chloride IV, 500, 0.004 Drug form: MEQ/ML / INJ, ONCE, Sodium Priority: Chloride STAT, 0.103 Dosing MEQ/ML / Weight Sodium 54.545 kg, Lactate Start 0.028 date: MEQ/ML 12/28/21 Injectable 20:31:00 Solution CATH LAB RADIOLOGICAL TECHNOLOGIST, Stop date: 12/28/21 20:31:00 CATH LAB RADIOLOGICAL TECHNOLOGIST, 0 Calcium 2022-0 No 500 mL, [facility] Chloride 2-18 500 ml/hr, l 0.0014 02:31: Infuse Syed MEQ/ML / 00 Over: 1 Potassium hr, Route: Chloride IV, 500, 0.004 Drug form: MEQ/ML / INJ, ONCE, Sodium Priority: Chloride STAT, 0.103 Dosing MEQ/ML / Weight Sodium 54.545 kg, Lactate Start 0.028 date: MEQ/ML 12/28/21 Injectable 20:31:00 Solution CATH LAB RADIOLOGICAL TECHNOLOGIST, Stop date: 12/28/21 20:31:00 CATH LAB RADIOLOGICAL TECHNOLOGIST, 0 Calcium 2022-0 No 500 mL, Memoria Chloride 2-18 500 ml/hr, l 0.0014 02:31: Infuse Constantia MEQ/ML / 00 Over: 1 Potassium hr, Route: Chloride IV, 500, 0.004 Drug form: MEQ/ML / INJ, ONCE, Sodium Priority: Chloride STAT, 0.103 Dosing MEQ/ML / Weight Sodium 54.545 kg, Lactate Start 0.028 date: MEQ/ML 12/28/21 Injectable 20:31:00 Solution CATH LAB RADIOLOGICAL TECHNOLOGIST, Stop date: 12/28/21 20:31:00 CATH LAB RADIOLOGICAL TECHNOLOGIST, 0 Iohexol 2022-0 No 75 mL, Memoria 2-18 Route: l 01:19: IVP, Drug Syed 00 Form: SOLN, Dosing Weight 54.545, kg, ONCALL, STAT, Start date: 12/28/21 19:19:00 CATH LAB RADIOLOGICAL TECHNOLOGIST, Duration: 1 doses or times, Dose = 2.2ml/kg, Max dose = 100ml -- "To be infused by Radiology Staff ONLY" Iohexol 2022-0 No 75 mL, Memoria 2-18 Route: l 01:19: IVP, Drug Syed 00 Form: SOLN, Dosing Weight 54.545, kg, ONCALL, STAT, Start date: 12/28/21 19:19:00 CATH LAB RADIOLOGICAL TECHNOLOGIST, Duration: 1 doses or times, Dose = 2.2ml/kg, Max dose = 100ml -- "To be infused by Radiology Staff ONLY" Iohexol 2022-0 No 75 mL, Memoria 2-18 Route: l 01:19: IVP, Drug Constantia 00 Form: SOLN, Dosing Weight 54.545, kg, ONCALL, STAT, Start date: 12/28/21 19:19:00 CATH LAB RADIOLOGICAL TECHNOLOGIST, Duration: 1 doses or times, Dose = 2.2ml/kg, Max dose = 100ml -- "To be infused by Radiology Staff ONLY" Iohexol 2022-0 No 75 mL, Memoria 2-18 Route: l 01:19: IVP, Drug Constantia 00 Form: SOLN, Dosing Weight 54.545, kg, ONCALL, STAT, Start date: 12/28/21 19:19:00 CATH LAB RADIOLOGICAL TECHNOLOGIST, Duration: 1 doses or times, Dose = 2.2ml/kg, Max dose = 100ml -- "To be infused by Radiology Staff ONLY" Iohexol 2022-0 No 75 mL, Memoria 2-18 Route: l 01:19: IVP, Drug Syed 00 Form: SOLN, Dosing Weight 54.545, kg, ONCALL, STAT, Start date: 12/28/21 19:19:00 CATH LAB RADIOLOGICAL TECHNOLOGIST, Duration: 1 doses or times, Dose = 2.2ml/kg, Max dose = 100ml -- "To be infused by Radiology Staff ONLY" Iohexol 2022-0 No 75 mL, Memoria 2-18 Route: l 01:19: IVP, Drug Syed 00 Form: SOLN, Dosing Weight 54.545, kg, ONCALL, STAT, Start date: 12/28/21 19:19:00 CATH LAB RADIOLOGICAL TECHNOLOGIST, Duration: 1 doses or times, Dose = 2.2ml/kg, Max dose = 100ml -- "To be infused by Radiology Staff ONLY" Iohexol 2022-0 No 75 mL, Memoria 2-18 Route: l 01:19: IVP, Drug Constantia 00 Form: SOLN, Dosing Weight 54.545, kg, ONCALL, STAT, Start date: 12/28/21 19:19:00 CATH LAB RADIOLOGICAL TECHNOLOGIST, Duration: 1 doses or times, Dose = 2.2ml/kg, Max dose = 100ml -- "To be infused by Radiology Staff ONLY" Iohexol 2022-0 No 75 mL, Memoria 2-18 Route: l 01:19: IVP, Drug Syed 00 Form: SOLN, Dosing Weight 54.545, kg, ONCALL, STAT, Start date: 12/28/21 19:19:00 CATH LAB RADIOLOGICAL TECHNOLOGIST, Duration: 1 doses or times, Dose = 2.2ml/kg, Max dose = 100ml -- "To be infused by Radiology Staff ONLY" Iohexol 2022-0 No 75 mL, Memoria 2-18 Route: l 01:19: IVP, Drug Syed 00 Form: SOLN, Dosing Weight 54.545, kg, ONCALL, STAT, Start date: 12/28/21 19:19:00 CATH LAB RADIOLOGICAL TECHNOLOGIST, Duration: 1 doses or times, Dose = 2.2ml/kg, Max dose = 100ml -- "To be infused by Radiology Staff ONLY" Iohexol 2022-0 No 75 mL, Memoria 2-18 Route: l 01:19: IVP, Drug Syed 00 Form: SOLN, Dosing Weight 54.545, kg, ONCALL, STAT, Start date: 12/28/21 19:19:00 CATH LAB RADIOLOGICAL TECHNOLOGIST, Duration: 1 doses or times, Dose = 2.2ml/kg, Max dose = 100ml -- "To be infused by Radiology Staff ONLY" Iohexol 2022-0 No 75 mL, Memoria 2-18 Route: l 01:19: IVP, Drug Syed 00 Form: SOLN, Dosing Weight 54.545, kg, ONCALL, STAT, Start date: 12/28/21 19:19:00 CATH LAB RADIOLOGICAL TECHNOLOGIST, Duration: 1 doses or times, Dose = 2.2ml/kg, Max dose = 100ml -- "To be infused by Radiology Staff ONLY" Iohexol 2022-0 No 75 mL, Memoria 2-18 Route: l 01:19: IVP, Drug Form: SOLN, Dosing Weight 54.545, kg, ONCALL, STAT, Start date: 12/28/21 19:19:00 CATH LAB RADIOLOGICAL TECHNOLOGIST, Duration: 1 doses or times, Dose = 2.2ml/kg, Max dose = 100ml -- "To be infused by Radiology Staff ONLY" Acetaminoph 2022-0 No 650 mg, 2 M emoria en 2-17 tab, l 23:33: Route: PO, Drug form: TAB, ONCE, Dosing Weight 54.545, kg, Priority: STAT, Start date: 12/28/21 17:33:00 CATH LAB RADIOLOGICAL TECHNOLOGIST, Stop date: 12/28/21 17:33:00 CATH LAB RADIOLOGICAL TECHNOLOGIST, 0 Acetaminoph 2022-0 No 650 mg, 2 M emoria en 2-17 tab, l 23:33: Route: PO, Drug form: TAB, ONCE, Dosing Weight 54.545, kg, Priority: STAT, Start date: 12/28/21 17:33:00 CATH LAB RADIOLOGICAL TECHNOLOGIST, Stop date: 12/28/21 17:33:00 CATH LAB RADIOLOGICAL TECHNOLOGIST, 0 Acetaminoph 2022-0 No 650 mg, 2 M emoria en 2-17 tab, l 23:33: Route: PO, Drug form: TAB, ONCE, Dosing Weight 54.545, kg, Priority: STAT, Start date: 12/28/21 17:33:00 CATH LAB RADIOLOGICAL TECHNOLOGIST, Stop date: 12/28/21 17:33:00 CATH LAB RADIOLOGICAL TECHNOLOGIST, 0 Acetaminoph 2022-0 No 650 mg, 2 M emoria en 2-17 tab, l 23:33: Route: PO, Drug form: TAB, ONCE, Dosing Weight 54.545, kg, Priority: STAT, Start date: 12/28/21 17:33:00 CATH LAB RADIOLOGICAL TECHNOLOGIST, Stop date: 12/28/21 17:33:00 CATH LAB RADIOLOGICAL TECHNOLOGIST, 0 Acetaminoph 2022-0 No 650 mg, 2 M emoria en 2-17 tab, l 23:33: Route: PO, Drug form: TAB, ONCE, Dosing Weight 54.545, kg, Priority: STAT, Start date: 12/28/21 17:33:00 CATH LAB RADIOLOGICAL TECHNOLOGIST, Stop date: 12/28/21 17:33:00 CATH LAB RADIOLOGICAL TECHNOLOGIST, 0 Acetaminoph 2022-0 No 650 mg, 2 M emoria en 2-17 tab, l 23:33: Route: PO, Syed 00 Drug form: TAB, ONCE, Dosing Weight 54.545, kg, Priority: STAT, Start date: 12/28/21 17:33:00 CATH LAB RADIOLOGICAL TECHNOLOGIST, Stop date: 12/28/21 17:33:00 CATH LAB RADIOLOGICAL TECHNOLOGIST, 0 Acetaminoph 2022-0 No 650 mg, 2 M emoria en 2-17 tab, l 23:33: Route: PO, Drug form: TAB, ONCE, Dosing Weight 54.545, kg, Priority: STAT, Start date: 12/28/21 17:33:00 CATH LAB RADIOLOGICAL TECHNOLOGIST, Stop date: 12/28/21 17:33:00 CATH LAB RADIOLOGICAL TECHNOLOGIST, 0 Acetaminoph 2022-0 No 650 mg, 2 M emoria en 2-17 tab, l 23:33: Route: PO, Drug form: TAB, ONCE, Dosing Weight 54.545, kg, Priority: STAT, Start date: 12/28/21 17:33:00 CATH LAB RADIOLOGICAL TECHNOLOGIST, Stop date: 12/28/21 17:33:00 CATH LAB RADIOLOGICAL TECHNOLOGIST, 0 Acetaminoph 2022-0 No 650 mg, 2 M emoria en 2-17 tab, l 23:33: Route: PO, Drug form: TAB, ONCE, Dosing Weight 54.545, kg, Priority: STAT, Start date: 12/28/21 17:33:00 CATH LAB RADIOLOGICAL TECHNOLOGIST, Stop date: 12/28/21 17:33:00 CATH LAB RADIOLOGICAL TECHNOLOGIST, 0 Acetaminoph 2022-0 No 650 mg, 2 M emoria en 2-17 tab, l 23:33: Route: PO, Drug form: TAB, ONCE, Dosing Weight 54.545, kg, Priority: STAT, Start date: 12/28/21 17:33:00 CATH LAB RADIOLOGICAL TECHNOLOGIST, Stop date: 12/28/21 17:33:00 CATH LAB RADIOLOGICAL TECHNOLOGIST, 0 Acetaminoph 2022-0 No 650 mg, 2 M emoria en 2-17 tab, l 23:33: Route: PO, Drug form: TAB, ONCE, Dosing Weight 54.545, kg, Priority: STAT, Start date: 12/28/21 17:33:00 CATH LAB RADIOLOGICAL TECHNOLOGIST, Stop date: 12/28/21 17:33:00 CATH LAB RADIOLOGICAL TECHNOLOGIST, 0 Acetaminoph 2021-0 No 650 mg, 2 M emoria en 2-17 tab, l 23:33: Route: PO, Syed 00 Drug form: TAB, ONCE, Dosing Weight 54.545, kg, Priority: STAT, Start date: 12/28/21 17:33:00 CATH LAB RADIOLOGICAL TECHNOLOGIST, Stop date: 12/28/21 17:33:00 CATH LAB RADIOLOGICAL TECHNOLOGIST, 0 Morphine 2021-0 No Notes: Memoria 2-17 (Same l 23:19: as:MORPhin Syed 00 e Sulfate) Sodium 2021-0 No 500 mL, Memoria Chloride 2-17 500 ml/hr, l 0.9% 23:19: Infuse Constantia (Bolus) IV 00 Over: 1 hr, Route: IV, 500, Drug form: INJ, ONCE, Priority: STAT, Dosing Weight 54.545 kg, Start date: 12/28/21 17:19:00 CATH LAB RADIOLOGICAL TECHNOLOGIST, Stop date: 12/28/21 17:19:00 CATH LAB RADIOLOGICAL TECHNOLOGIST, 0 Morphine 2021-0 No Notes: Memoria 2-17 (Same l 23:19: as:MORPhin Syed 00 e Sulfate) Sodium 2021-0 No 500 mL, Memoria Chloride 2-17 500 ml/hr, l 0.9% 23:19: Infuse Syed (Bolus) IV 00 Over: 1 hr, Route: IV, 500, Drug form: INJ, ONCE, Priority: STAT, Dosing Weight 54.545 kg, Start date: 12/28/21 17:19:00 CATH LAB RADIOLOGICAL TECHNOLOGIST, Stop date: 12/28/21 17:19:00 CATH LAB RADIOLOGICAL TECHNOLOGIST, 0 Morphine 2021-0 No Notes: Memoria 2-17 (Same l 23:19: as:MORPhin Syed 00 e Sulfate) Sodium 2021-0 No 500 mL, Memoria Chloride 2-17 500 ml/hr, l 0.9% 23:19: Infuse Syed (Bolus) IV 00 Over: 1 hr, Route: IV, 500, Drug form: INJ, ONCE, Priority: STAT, Dosing Weight 54.545 kg, Start date: 12/28/21 17:19:00 CATH LAB RADIOLOGICAL TECHNOLOGIST, Stop date: 12/28/21 17:19:00 CATH LAB RADIOLOGICAL TECHNOLOGIST, 0 Morphine 2021-0 No Notes: Memoria 2-17 (Same l 23:19: as:MORPhin Constantia 00 e Sulfate) Sodium 0 No 500 mL, Memoria Chloride 2-17 500 ml/hr, l 0.9% 23:19: Infuse Syed (Bolus) IV 00 Over: 1 hr, Route: IV, 500, Drug form: INJ, ONCE, Priority: STAT, Dosing Weight 54.545 kg, Start date: 12/28/21 17:19:00 CATH LAB RADIOLOGICAL TECHNOLOGIST, Stop date: 12/28/21 17:19:00 CATH LAB RADIOLOGICAL TECHNOLOGIST, 0 Morphine 2021-0 No Notes: Memoria 2-17 (Same l 23:19: as:MORPhin Constantia 00 e Sulfate) Sodium 0 No 500 mL, Memoria Chloride 2-17 500 ml/hr, l 0.9% 23:19: Infuse Syed (Bolus) IV 00 Over: 1 hr, Route: IV, 500, Drug form: INJ, ONCE, Priority: STAT, Dosing Weight 54.545 kg, Start date: 12/28/21 17:19:00 CATH LAB RADIOLOGICAL TECHNOLOGIST, Stop date: 12/28/21 17:19:00 CATH LAB RADIOLOGICAL TECHNOLOGIST, 0 Morphine 2021-0 No Notes: Memoria 2-17 (Same l 23:19: as:MORPhin Syed 00 e Sulfate) Sodium 0 No 500 mL, Memoria Chloride 2-17 500 ml/hr, l 0.9% 23:19: Infuse Syed (Bolus) IV 00 Over: 1 hr, Route: IV, 500, Drug form: INJ, ONCE, Priority: STAT, Dosing Weight 54.545 kg, Start date: 12/28/21 17:19:00 CATH LAB RADIOLOGICAL TECHNOLOGIST, Stop date: 12/28/21 17:19:00 CATH LAB RADIOLOGICAL TECHNOLOGIST, 0 Morphine 2021-0 No Notes: Memoria 2-17 (Same l 23:19: as:MORPhin Syed 00 e Sulfate) Sodium 0 No 500 mL, Memoria Chloride 2-17 500 ml/hr, l 0.9% 23:19: Infuse Syed (Bolus) IV 00 Over: 1 hr, Route: IV, 500, Drug form: INJ, ONCE, Priority: STAT, Dosing Weight 54.545 kg, Start date: 12/28/21 17:19:00 CATH LAB RADIOLOGICAL TECHNOLOGIST, Stop date: 12/28/21 17:19:00 CATH LAB RADIOLOGICAL TECHNOLOGIST, 0 Morphine 2021-0 No Notes: Memoria 2-17 (Same l 23:19: as:MORPhin Constantia 00 e Sulfate) Sodium 2021-0 No 500 mL, Memoria Chloride 2-17 500 ml/hr, l 0.9% 23:19: Infuse Constantia (Bolus) IV 00 Over: 1 hr, Route: IV, 500, Drug form: INJ, ONCE, Priority: STAT, Dosing Weight 54.545 kg, Start date: 12/28/21 17:19:00 CATH LAB RADIOLOGICAL TECHNOLOGIST, Stop date: 12/28/21 17:19:00 CATH LAB RADIOLOGICAL TECHNOLOGIST, 0 Morphine 2021-0 No Notes: Memoria 2-17 (Same l 23:19: as:MORPhin Syed 00 e Sulfate) Sodium 0 No 500 mL, Memoria Chloride 2-17 500 ml/hr, l 0.9% 23:19: Infuse Syed (Bolus) IV 00 Over: 1 hr, Route: IV, 500, Drug form: INJ, ONCE, Priority: STAT, Dosing Weight 54.545 kg, Start date: 12/28/21 17:19:00 CATH LAB RADIOLOGICAL TECHNOLOGIST, Stop date: 12/28/21 17:19:00 CATH LAB RADIOLOGICAL TECHNOLOGIST, 0 Morphine 2021-0 No Notes: Memoria 2-17 (Same l 23:19: as:MORPhin Constantia 00 e Sulfate) Sodium 0 No 500 mL, Memoria Chloride 2-17 500 ml/hr, l 0.9% 23:19: Infuse Syed (Bolus) IV 00 Over: 1 hr, Route: IV, 500, Drug form: INJ, ONCE, Priority: STAT, Dosing Weight 54.545 kg, Start date: 12/28/21 17:19:00 CATH LAB RADIOLOGICAL TECHNOLOGIST, Stop date: 12/28/21 17:19:00 CATH LAB RADIOLOGICAL TECHNOLOGIST, 0 Morphine 2021-0 No Notes: Memoria 2-17 (Same l 23:19: as:MORPhin Constantia 00 e Sulfate) Sodium 0 No 500 mL, Memoria Chloride 2-17 500 ml/hr, l 0.9% 23:19: Infuse Constantia (Bolus) IV 00 Over: 1 hr, Route: IV, 500, Drug form: INJ, ONCE, Priority: STAT, Dosing Weight 54.545 kg, Start date: 12/28/21 17:19:00 CATH LAB RADIOLOGICAL TECHNOLOGIST, Stop date: 12/28/21 17:19:00 CATH LAB RADIOLOGICAL TECHNOLOGIST, 0 Morphine No Notes: Memoria 2-17 (Same l 23:19: as:MORPhin Constantia 00 e Sulfate) Sodium No 500 mL, Memoria Chloride 2-17 500 ml/hr, l 0.9% 23:19: Infuse Constantia (Bolus) IV 00 Over: 1 hr, Route: IV, 500, Drug form: INJ, ONCE, Priority: STAT, Dosing Weight 54.545 kg, Start date: 12/28/21 17:19:00 CATH LAB RADIOLOGICAL TECHNOLOGIST, Stop date: 12/28/21 17:19:00 CATH LAB RADIOLOGICAL TECHNOLOGIST, 0 Morphine No Notes: Memoria 2-17 (Same l 21:25: as:MORPhin Constantia 00 e Sulfate) Ondansetron No Notes: Ervin marybel 2-17 (Same as: l 21:25: Zofran) Syed 00 MEDICATION WASTE Product Size: 4 mg Product Wasted: ___ mg Morphine No Notes: Memoria 2-17 (Same l 21:25: as:MORPhin Syed 00 e Sulfate) Ondansetron No Notes: Ervin marybel 2-17 (Same as: l 21:25: Zofran) Syed 00 MEDICATION WASTE Product Size: 4 mg Product Wasted: ___ mg Morphine No Notes: Memoria 2-17 (Same l 21:25: as:MORPhin Constantia 00 e Sulfate) Ondansetron No Notes: Ervin marybel 2-17 (Same as: l 21:25: Zofran) Syed 00 MEDICATION WASTE Product Size: 4 mg Product Wasted: ___ mg Morphine No Notes: Memoria 2-17 (Same l 21:25: as:MORPhin Constantia 00 e Sulfate) Ondansetron No Notes: Ervin marybel 2-17 (Same as: l 21:25: Zofran) Syed 00 MEDICATION WASTE Product Size: 4 mg Product Wasted: ___ mg Morphine 2021-0 No Notes: Memoria 2-17 (Same l 21:25: as:MORPhin Syed 00 e Sulfate) Ondansetron 2021-0 No Notes: Ervin marybel 2-17 (Same as: l 21:25: Zofran) Syed 00 MEDICATION WASTE Product Size: 4 mg Product Wasted: ___ mg Morphine 2021-0 No Notes: Memoria 2-17 (Same l 21:25: as:MORPhin Constantia 00 e Sulfate) Ondansetron 2021-0 No Notes: Ervin marybel 2-17 (Same as: l 21:25: Zofran) Syed 00 MEDICATION WASTE Product Size: 4 mg Product Wasted: ___ mg Morphine 2021-0 No Notes: Memoria 2-17 (Same l 21:25: as:MORPhin Syed 00 e Sulfate) Ondansetron 0 No Notes: Ervin marybel 2-17 (Same as: l 21:25: Zofran) Syed 00 MEDICATION WASTE Product Size: 4 mg Product Wasted: ___ mg Morphine 2021-0 No Notes: Memoria 2-17 (Same l 21:25: as:MORPhin Constantia 00 e Sulfate) Ondansetron 0 No Notes: Ervin marybel 2-17 (Same as: l 21:25: Zofran) Syed 00 MEDICATION WASTE Product Size: 4 mg Product Wasted: ___ mg Morphine 2021-0 No Notes: Memoria 2-17 (Same l 21:25: as:MORPhin Constantia 00 e Sulfate) Ondansetron 2021-0 No Notes: Ervin marybel 2-17 (Same as: l 21:25: Zofran) Syed 00 MEDICATION WASTE Product Size: 4 mg Product Wasted: ___ mg Morphine 2021-0 No Notes: Memoria 2-17 (Same l 21:25: as:MORPhin Constantia 00 e Sulfate) Ondansetron 2021-0 No Notes: Ervin marybel 2-17 (Same as: l 21:25: Zofran) Syed 00 MEDICATION WASTE Product Size: 4 mg Product Wasted: ___ mg Morphine No Notes: Memoria 2-17 (Same l 21:25: as:MORPhin Constantia 00 e Sulfate) Ondansetron No Notes: Ervin marybel 2-17 (Same as: l 21:25: Zofran) Syed 00 MEDICATION WASTE Product Size: 4 mg Product Wasted: ___ mg Morphine No Notes: Memoria 2-17 (Same l 21:25: as:MORPhin Syed 00 e Sulfate) Ondansetron No Notes: Ervin marybel 2-17 (Same as: l 21:25: Zofran) Constantia 00 MEDICATION WASTE Product Size: 4 mg Product Wasted: ___ mg clopidogreL Yes 75mg Take 75 mg [facility] (PLAVIX) 75 9-01 by mouth ity of mg tablet 16:04: daily. [address] apixaban Yes 2.5mg Take 2.5 Univ ers (ELIQUIS) 9-01 mg by ity of 2.5 mg 16:04: mouth 2 [place] tablet 45 (two) Medical times [place] daily. aspirin 81 Yes 81mg Take 81 mg U nivers mg Cap 9- by mouth ity of 16:04: daily. [address] clopidogreL Yes 75mg Take 75 mg [facility] (PLAVIX) 75 9-01 by mouth ity of mg tablet 16:04: daily. [address] apixaban Yes 2.5mg Take 2.5 Univ ers (ELIQUIS) 9-01 mg by ity of 2.5 mg 16:04: mouth 2 [place] tablet 45 (two) Medical times [place] daily. aspirin 81 Yes 81mg Take 81 mg U nivers mg Cap 9-01 by mouth ity of 16:04: daily. [address] clopidogreL Yes 75mg Take 75 mg [facility] (PLAVIX) 75 9-01 by mouth ity of mg tablet 16:04: daily. [address] apixaban Yes 2.5mg Take 2.5 Univ ers (ELIQUIS) 9-01 mg by ity of 2.5 mg 16:04: mouth 2 [place] tablet 45 (two) Medical times [place] daily. aspirin 81 Yes 81mg Take 81 mg U nivers mg Cap 07-12 by mouth ity of 16:04: daily. [address] clopidogreL Yes 75mg Take 75 mg [facility] (PLAVIX) 75 07-12 by mouth ity of mg tablet 16:04: daily. [address] apixaban Yes 2.5mg Take 2.5 Univ ers (ELIQUIS) 9- mg by ity of 2.5 mg 16:04: mouth 2 [place] tablet 45 (two) Medical times [place] daily. aspirin 81 Yes 81mg Take 81 mg U nivers mg Cap 07-12 by mouth ity of 16:04: daily. [address] clopidogreL Yes 75mg Take 75 mg [facility] (PLAVIX) 75 07-12 by mouth ity of mg tablet 16:04: daily. [address] apixaban Yes 2.5mg Take 2.5 Univ ers (ELIQUIS) 9- mg by ity of 2.5 mg 16:04: mouth 2 [place] tablet 45 (two) Medical times [place] daily. aspirin 81 Yes 81mg Take 81 mg U nivers mg Cap 07-12 by mouth ity of 16:04: daily. [address] Levofloxaci Yes 500 mg = 1 Memoria n 500 MG 4-22 tab, PO, l Oral Tablet 13:31: Q24H, X 7 [facility] [Levaquin] 00 day, # 7 tab, 0 Refill(s), Pharmacy: [facility] #[id number], 165.1, cm, 03/01/21 5:47:00 CDT, Height, 60.625, kg, 03/01/21 5:47:00 CDT, Weight Levofloxaci 0 Yes 500 mg = 1 Memoria n 500 MG 4-22 tab, PO, l Oral Tablet 13:31: Q24H, X 7 [facility] [place] [Levaquin] 00 day, # 7 tab, 0 Refill(s), Pharmacy: [id number], 165.1, cm, 03/01/21 5:47:00 CDT, Height, 60.625, kg, 03/01/21 5:47:00 CDT, Weight Levofloxaci 2021-0 Yes 500 mg = 1 Memoria n 500 MG 4-22 tab, PO, l Oral Tablet 13:31: Q24H, X 7 [facility] [place] [Levaquin] 00 day, # 7 tab, 0 Refill(s), Pharmacy: [facility] #[id number], 165.1, cm, 03/01/21 5:47:00 CDT, Height, 60.625, kg, 03/01/21 5:47:00 CDT, Weight Levofloxaci 2021-0 Yes 500 mg = 1 Memoria n 500 MG 4-22 tab, PO, l Oral Tablet 13:31: Q24H, X 7 [facility] [Levaquin] 00 day, # 7 tab, 0 Refill(s), Pharmacy: [facility] #[id number], 165.1, cm, 03/01/21 5:47:00 CDT, Height, 60.625, kg, 03/01/21 5:47:00 CDT, Weight Levofloxaci 2021-0 Yes 500 mg = 1 Memoria n 500 MG 4-22 tab, PO, l Oral Tablet 13:31: Q24H, X 7 [facility] [place] [Levaquin] day, # 7 tab, 0 Refill(s), Pharmacy: [facility] #[id number], 165.1, cm, 03/01/21 5:47:00 CDT, Height, 60.625, kg, 03/01/21 5:47:00 CDT, Weight Levofloxaci 2021-0 Yes 500 mg = 1 Memoria n 500 MG 4-22 tab, PO, l Oral Tablet 13:31: Q24H, X 7 [facility] [Levaquin] 00 day, # 7 tab, 0 Refill(s), Pharmacy: [facility] #[id number], 165.1, cm, 03/01/21 5:47:00 CDT, Height, 60.625, kg, 03/01/21 5:47:00 CDT, Weight Levofloxaci 2021-0 Yes 500 mg = 1 Memoria n 500 MG 4-22 tab, PO, l Oral Tablet 13:31: Q24H, X 7 [facility] [place] [Levaquin] 00 day, # 7 tab, 0 Refill(s), [id number], 165.1, cm, 03/01/21 5:47:00 CDT, Height, 60.625, kg, 03/01/21 5:47:00 CDT, Weight Levofloxaci 2021-0 Yes 500 mg = 1 Memoria n 500 MG 4-22 tab, PO, l Oral Tablet 13:31: Q24H, X 7 [facility] [Levaquin] 00 day, # 7 tab, 0 Refill(s), Pharmacy: [facility] #[id number], 165.1, cm, 03/01/21 5:47:00 CDT, Height, 60.625, kg, 03/01/21 5:47:00 CDT, Weight Levofloxaci 2021-0 Yes 500 mg = 1 Memoria n 500 MG 4-22 tab, PO, l Oral Tablet 13:31: Q24H, X 7 [facility] [place] [Levaquin] day, # 7 tab, 0 Refill(s), Pharmacy: [facility] #[id number], 165.1, cm, 03/01/21 5:47:00 CDT, Height, 60.625, kg, 03/01/21 5:47:00 CDT, Weight Levofloxaci 2021-0 Yes 500 mg = 1 Memoria n 500 MG 4-22 tab, PO, l Oral Tablet 13:31: Q24H, X 7 [facility] [place] [Levaquin] day, # 7 tab, 0 Refill(s), Pharmacy: [facility] #[id number], 165.1, cm, 03/01/21 5:47:00 CDT, Height, 60.625, kg, 03/01/21 5:47:00 CDT, Weight Levofloxaci 2021-0 Yes 500 mg = 1 Memoria n 500 MG 4-22 tab, PO, l Oral Tablet 13:31: Q24H, X 7 H [facility] [Levaquin] 00 day, # 7 tab, 0 Refill(s), Pharmacy: [facility] #[id number], 165.1, cm, 03/01/21 5:47:00 CDT, Height, 60.625, kg, 03/01/21 5:47:00 CDT, Weight Levofloxaci 2020-0 Yes 500 mg = 1 Memoria n 500 MG - tab, PO, l Oral Tablet 13:31: Q24H, X 7 H [facility] [Levaquin] day, # 7 tab, 0 Refill(s), Pharmacy: [id number], 165.1, cm, 03/01/21 5:47:00 CDT, Height, 60.625, kg, 03/01/21 5:47:00 CDT, Weight Rocephin + 2020-0 No Notes: Memor ia sterile 4-22 (Same As: l water 10 mL 10:54: Rocephin). Constantia Use with 100 mL NS and infuse over 30 min MEDICATION WASTE Product Size: 1000 mg Product Wasted: ___ mg Rocephin + 2020-0 No Notes: Memor ia sterile 4-22 (Same As: l water 10 mL 10:54: Rocephin). Constantia Use with 100 mL NS and infuse over 30 min MEDICATION WASTE Product Size: 1000 mg Product Wasted: ___ mg Rocephin + 2020-0 No Notes: Memor ia sterile 4-22 (Same As: l water 10 mL 10:54: Rocephin). Constantia Use with 100 mL NS and infuse over 30 min MEDICATION WASTE Product Size: 1000 mg Product Wasted: ___ mg Rocephin + 2020-0 No Notes: Memor ia sterile 4-22 (Same As: l water 10 mL 10:54: Rocephin). Syed 00 Use with 100 mL NS and infuse over 30 min MEDICATION WASTE Product Size: 1000 mg Product Wasted: ___ mg Rocephin + 2020-0 No Notes: Memor ia sterile 4-22 (Same As: l water 10 mL 10:54: Rocephin). Syed 00 Use with 100 mL NS and infuse over 30 min MEDICATION WASTE Product Size: 1000 mg Product Wasted: ___ mg Rocephin + 2020-0 No Notes: Memor ia sterile 4-22 (Same As: l water 10 mL 10:54: Rocephin). Constantia 00 Use with 100 mL NS and infuse over 30 min MEDICATION WASTE Product Size: 1000 mg Product Wasted: ___ mg Rocephin + 2020-0 No Notes: Memor ia sterile 4-22 (Same As: l water 10 mL 10:54: Rocephin). Syed 00 Use with 100 mL NS and infuse over 30 min MEDICATION WASTE Product Size: 1000 mg Product Wasted: ___ mg Rocephin + 2021-0 No Notes: Memor ia sterile 4-22 (Same As: l water 10 mL 10:54: Rocephin). Constantia 00 Use with 100 mL NS and infuse over 30 min MEDICATION WASTE Product Size: 1000 mg Product Wasted: ___ mg Rocephin + 2020-0 No Notes: Memor ia sterile 4-22 (Same As: l water 10 mL 10:54: Rocephin). Syed 00 Use with 100 mL NS and infuse over 30 min MEDICATION WASTE Product Size: 1000 mg Product Wasted: ___ mg Rocephin + 2020-0 No Notes: Memor ia sterile 4-22 (Same As: l water 10 mL 10:54: Rocephin). Syed 00 Use with 100 mL NS and infuse over 30 min MEDICATION WASTE Product Size: 1000 mg Product Wasted: ___ mg Rocephin + 2020-0 No Notes: Memor ia sterile 4-22 (Same As: l water 10 mL 10:54: Rocephin). Syed 00 Use with 100 mL NS and infuse over 30 min MEDICATION WASTE Product Size: 1000 mg Product Wasted: ___ mg Rocephin + 2020-0 No Notes: Memor ia sterile 4-22 (Same As: l water 10 mL 10:54: Rocephin). Constantia 00 Use with 100 mL NS and infuse over 30 min MEDICATION WASTE Product Size: 1000 mg Product Wasted: ___ mg sennosides, 2020-0 No Notes: Ervin marybel CARE HOME 4-22 (Same as: l 02:00: Senokot) Constantia 00 sennosides, No Notes: Ervin marybel CARE HOME 4-22 (Same as: l 02:00: Senokot) Constantia 00 sennosides, No Notes: Ervin marybel CARE HOME 4-22 (Same as: l 02:00: Senokot) Syed 00 sennosides, No Notes: Ervin marybel CARE HOME 4-22 (Same as: l 02:00: Senokot) Syed 00 sennosides, No Notes: Ervin marybel CARE HOME 4-22 (Same as: l 02:00: Senokot) Constantia 00 sennosides, No Notes: Ervin marybel CARE HOME 4-22 (Same as: l 02:00: Senokot) Constantia 00 sennosides, No Notes: Ervin marybel CARE HOME 4-22 (Same as: l 02:00: Senokot) Syed 00 sennosides, No Notes: Ervin marybel CARE HOME 4-22 (Same as: l 02:00: Senokot) Syed 00 sennosides, No Notes: Ervin marybel CARE HOME 4-22 (Same as: l 02:00: Senokot) Syed 00 sennosides, No Notes: Ervin marybel CARE HOME 4-22 (Same as: l 02:00: Senokot) Constantia 00 sennosides, No Notes: Ervin marybel CARE HOME 4-22 (Same as: l 02:00: Senokot) Constantia 00 sennosides, No Notes: Ervin marybel CARE HOME 4-22 (Same as: l 02:00: Senokot) Constantia 00 Docusate No Notes: Memoria 4-21 (Same as: l 14:00: Colace) Syed 00 (Do Not Crush) apixaban No Notes: Memoria 4-21 Same as: l 14:00: Eliquis Syed 00 Clonazepam No Notes: Memor ia 4-21 (Same As: l 14:00: KlonoPIN) Syed 00 Hazardous Drug Group 3:Reproduc tive risk Hazardous Drug -- Refer to safe handling procedure PPE Matrix Plavix No Notes: Memoria 4-21 (Same As: l 14:00: Plavix) Famotidine No Notes: Memor ia 4-21 (Same as: l 14:00: Pepcid) gabapentin No Notes: Memor ia 4-21 (Same as: l 14:00: Neurontin) Levetiracet No Notes: Ervin marybel am 250 MG 4-21 (Same l Oral Tablet 14:00: as:Keppra) Syed [Keppra] lidocaine No Notes: Memori a 4% patch 4-21 Apply only l 14:00: once for up to 12 hours in a 24-hour period (12 hours on and 12 hours off). (Same as: Aspercreme Lidocaine Patch) "Remove old patch before applicatio n of new patch" Docusate No Notes: Memoria 4-21 (Same as: l 14:00: Colace) (Do Not Crush) apixaban No Notes: Memoria 4-21 Same as: l 14:00: Eliquis Clonazepam No Notes: Memor ia 4-21 (Same As: l 14:00: KlonoPIN) Hazardous Drug Group 3:Reproduc tive risk Hazardous Drug -- Refer to safe handling procedure PPE Matrix Plavix No Notes: Memoria 4-21 (Same As: l 14:00: Plavix) Famotidine No Notes: Memor ia 4-21 (Same as: l 14:00: Pepcid) gabapentin No Notes: Memor ia 4-21 (Same as: l 14:00: Neurontin) Levetiracet No Notes: Ervin marybel am 250 MG 4-21 (Same l Oral Tablet 14:00: as:Keppra) Constantia [Keppra] 00 lidocaine No Notes: Memori a 4% patch 4-21 Apply only l 14:00: once for Constantia 00 up to 12 hours in a 24-hour period (12 hours on and 12 hours off). (Same as: Aspercreme Lidocaine Patch) "Remove old patch before applicatio n of new patch" Docusate No Notes: Memoria 4-21 (Same as: l 14:00: Colace) (Do Not Crush) apixaban No Notes: Memoria 4-21 Same as: l 14:00: Eliquis Clonazepam No Notes: Memor ia 4-21 (Same As: l 14:00: KlonoPIN) Hazardous Drug Group 3:Reproduc tive risk Hazardous Drug -- Refer to safe handling procedure PPE Matrix Plavix No Notes: Memoria 4-21 (Same As: l 14:00: Plavix) Famotidine No Notes: Memor ia 4-21 (Same as: l 14:00: Pepcid) gabapentin No Notes: Memor ia 4-21 (Same as: l 14:00: Neurontin) Levetiracet No Notes: Ervin marybel am 250 MG 4-21 (Same l Oral Tablet 14:00: as:Keppra) [Keppra] 00 lidocaine No Notes: Memori a 4% patch 4-21 Apply only l 14:00: once for Syed up to 12 hours in a 24-hour period (12 hours on and 12 hours off). (Same as: Aspercreme Lidocaine Patch) "Remove old patch before applicatio n of new patch" Docusate No Notes: Memoria 4-21 (Same as: l 14:00: Colace) Syed 00 (Do Not Crush) apixaban No Notes: Memoria 4-21 Same as: l 14:00: Eliquis Syed 00 Clonazepam No Notes: Memor ia 4-21 (Same As: l 14:00: KlonoPIN) Hazardous Drug Group 3:Reproduc tive risk Hazardous Drug -- Refer to safe handling procedure PPE Matrix Plavix No Notes: Memoria 4-21 (Same As: l 14:00: Plavix) Famotidine No Notes: Memor ia 4-21 (Same as: l 14:00: Pepcid) gabapentin No Notes: Memor ia 4-21 (Same as: l 14:00: Neurontin) Levetiracet No Notes: Ervin marybel am 250 MG 4-21 (Same l Oral Tablet 14:00: as:Keppra) [place] [Keppra] lidocaine No Notes: Memori a 4% patch 4-21 Apply only l 14:00: once for Constantia up to 12 hours in a 24-hour period (12 hours on and 12 hours off). (Same as: Aspercreme Lidocaine Patch) "Remove old patch before applicatio n of new patch" Docusate No Notes: Memoria 4-21 (Same as: l 14:00: Colace) (Do Not Crush) apixaban No Notes: Memoria 4-21 Same as: l 14:00: Eliquis Clonazepam No Notes: Memor ia 4-21 (Same As: l 14:00: KlonoPIN) Hazardous Drug Group 3:Reproduc tive risk Hazardous Drug -- Refer to safe handling procedure PPE Matrix Plavix No Notes: Memoria 4-21 (Same As: l 14:00: Plavix) Famotidine No Notes: Memor ia 4-21 (Same as: l 14:00: Pepcid) gabapentin No Notes: Memor ia 4-21 (Same as: l 14:00: Neurontin) Levetiracet No Notes: Ervin marybel am 250 MG 4-21 (Same l Oral Tablet 14:00: as:Keppra) Syed [Keppra] 00 lidocaine No Notes: Memori a 4% patch 4-21 Apply only l 14:00: once for Constantia up to 12 hours in a 24-hour period (12 hours on and 12 hours off). (Same as: Aspercreme Lidocaine Patch) "Remove old patch before applicatio n of new patch" Docusate No Notes: Memoria 4-21 (Same as: l 14:00: Colace) Syed 00 (Do Not Crush) apixaban No Notes: Memoria 4-21 Same as: l 14:00: Eliquis Clonazepam No Notes: Memor ia 4-21 (Same As: l 14:00: KlonoPIN) Hazardous Drug Group 3:Reproduc tive risk Hazardous Drug -- Refer to safe handling procedure PPE Matrix Plavix No Notes: Memoria 4-21 (Same As: l 14:00: Plavix) Famotidine No Notes: Memor ia 4-21 (Same as: l 14:00: Pepcid) gabapentin No Notes: Memor ia 4-21 (Same as: l 14:00: Neurontin) Levetiracet No Notes: Ervin marybel am 250 MG 4-21 (Same l Oral Tablet 14:00: as:Keppra) [Keppra] 00 lidocaine No Notes: Memori a 4% patch 4-21 Apply only l 14:00: once for up to 12 hours in a 24-hour period (12 hours on and 12 hours off). (Same as: Aspercreme Lidocaine Patch) "Remove old patch before applicatio n of new patch" Docusate No Notes: Memoria 4-21 (Same as: l 14:00: Colace) (Do Not Crush) apixaban No Notes: Memoria 4-21 Same as: l 14:00: Eliquis Clonazepam No Notes: Memor ia 4-21 (Same As: l 14:00: KlonoPIN) Hazardous Drug Group 3:Reproduc tive risk Hazardous Drug -- Refer to safe handling procedure PPE Matrix Plavix No Notes: Memoria 4-21 (Same As: l 14:00: Plavix) Famotidine No Notes: Memor ia 4-21 (Same as: l 14:00: Pepcid) gabapentin No Notes: Memor ia 4-21 (Same as: l 14:00: Neurontin) Levetiracet No Notes: Ervin marybel am 250 MG 4-21 (Same l Oral Tablet 14:00: as:Keppra) [place] [Keppra] 00 lidocaine No Notes: Memori a 4% patch 4-21 Apply only l 14:00: once for Constantia up to 12 hours in a 24-hour period (12 hours on and 12 hours off). (Same as: Aspercreme Lidocaine Patch) "Remove old patch before applicatio n of new patch" Docusate No Notes: Memoria 4-21 (Same as: l 14:00: Colace) (Do Not Crush) apixaban No Notes: Memoria 4-21 Same as: l 14:00: Eliquis Clonazepam No Notes: Memor ia 4-21 (Same As: l 14:00: KlonoPIN) Hazardous Drug Group 3:Reproduc tive risk Hazardous Drug -- Refer to safe handling procedure PPE Matrix Plavix No Notes: Memoria 4-21 (Same As: l 14:00: Plavix) Famotidine No Notes: Memor ia 4-21 (Same as: l 14:00: Pepcid) gabapentin No Notes: Memor ia 4-21 (Same as: l 14:00: Neurontin) Levetiracet No Notes: Ervin marybel am 250 MG 4-21 (Same l Oral Tablet 14:00: as:Keppra) [place] [Keppra] 00 lidocaine No Notes: Memori a 4% patch 4-21 Apply only l 14:00: once for Constantia up to 12 hours in a 24-hour period (12 hours on and 12 hours off). (Same as: Aspercreme Lidocaine Patch) "Remove old patch before applicatio n of new patch" Docusate No Notes: Memoria 4-21 (Same as: l 14:00: Colace) (Do Not Crush) apixaban No Notes: Memoria 4-21 Same as: l 14:00: Eliquis Clonazepam No Notes: Memor ia 4-21 (Same As: l 14:00: KlonoPIN) Hazardous Drug Group 3:Reproduc tive risk Hazardous Drug -- Refer to safe handling procedure PPE Matrix Plavix No Notes: Memoria 4-21 (Same As: l 14:00: Plavix) Famotidine No Notes: Memor ia 4-21 (Same as: l 14:00: Pepcid) gabapentin No Notes: Memor ia 4-21 (Same as: l 14:00: Neurontin) Levetiracet No Notes: Ervin marybel am 250 MG 4-21 (Same l Oral Tablet 14:00: as:Keppra) [Keppra] 00 lidocaine No Notes: Memori a 4% patch 4-21 Apply only l 14:00: once for up to 12 hours in a 24-hour period (12 hours on and 12 hours off). (Same as: Aspercreme Lidocaine Patch) "Remove old patch before applicatio n of new patch" Docusate No Notes: Memoria 4-21 (Same as: l 14:00: Colace) (Do Not Crush) apixaban No Notes: Memoria 4-21 Same as: l 14:00: Eliquis Clonazepam No Notes: Memor ia 4-21 (Same As: l 14:00: KlonoPIN) Hazardous Drug Group 3:Reproduc tive risk Hazardous Drug -- Refer to safe handling procedure PPE Matrix Plavix No Notes: Memoria 4-21 (Same As: l 14:00: Plavix) Famotidine No Notes: Memor ia 4-21 (Same as: l 14:00: Pepcid) gabapentin No Notes: Memor ia 4-21 (Same as: l 14:00: Neurontin) Levetiracet No Notes: Ervin marybel am 250 MG 4-21 (Same l Oral Tablet 14:00: as:Keppra) [place]ia [Keppra] 00 lidocaine No Notes: Memori a 4% patch 4-21 Apply only l 14:00: once for Syed 00 up to 12 hours in a 24-hour period (12 hours on and 12 hours off). (Same as: Aspercreme Lidocaine Patch) "Remove old patch before applicatio n of new patch" Docusate No Notes: Memoria 4-21 (Same as: l 14:00: Colace) (Do Not Crush) apixaban No Notes: Memoria 4-21 Same as: l 14:00: Eliquis Clonazepam No Notes: Memor ia 4-21 (Same As: l 14:00: KlonoPIN) Hazardous Drug Group 3:Reproduc tive risk Hazardous Drug -- Refer to safe handling procedure PPE Matrix Plavix No Notes: Memoria 4-21 (Same As: l 14:00: Plavix) Famotidine No Notes: Memor ia 4-21 (Same as: l 14:00: Pepcid) gabapentin No Notes: Memor ia 4-21 (Same as: l 14:00: Neurontin) Levetiracet No Notes: Ervin marybel am 250 MG 4-21 (Same l Oral Tablet 14:00: as:Keppra) Syed [Keppra] 00 lidocaine No Notes: Memori a 4% patch 4-21 Apply only l 14:00: once for Constantia 00 up to 12 hours in a 24-hour period (12 hours on and 12 hours off). (Same as: Aspercreme Lidocaine Patch) "Remove old patch before applicatio n of new patch" Docusate No Notes: Memoria 4-21 (Same as: l 14:00: Colace) (Do Not Crush) apixaban No Notes: Memoria 4-21 Same as: l 14:00: Eliquis Clonazepam No Notes: Memor ia 4-21 (Same As: l 14:00: KlonoPIN) Hazardous Drug Group 3:Reproduc tive risk Hazardous Drug -- Refer to safe handling procedure PPE Matrix Plavix No Notes: Memoria 4-21 (Same As: l 14:00: Plavix) Famotidine No Notes: Memor ia 4-21 (Same as: l 14:00: Pepcid) gabapentin No Notes: Memor ia 4-21 (Same as: l 14:00: Neurontin) Levetiracet No Notes: Ervin marybel am 250 MG 03-01 (Same l Oral Tablet 14:00: as:Keppra) [Keppra] lidocaine No Notes: Memori a 4% patch 03-01 Apply only l 14:00: once for up to 12 hours in a 24-hour period (12 hours on and 12 hours off). (Same as: Aspercreme Lidocaine Patch) "Remove old patch before applicatio n of new patch" Synthroid No Notes: Memori a 4-21 Take 1 l 11:30: hour Syed 00 before or 2 hours after meal; Enteral feeds may interefere with the absorption of this medication .(Same as:Levothr oid, Synthroid) Synthroid No Notes: Memori a 4-21 Take 1 l 11:30: hour Constantia 00 before or 2 hours after meal; Enteral feeds may interefere with the absorption of this medication .(Same as:Levothr oid, Synthroid) Synthroid No Notes: Memori a 4-21 Take 1 l 11:30: hour Syed 00 before or 2 hours after meal; Enteral feeds may interefere with the absorption of this medication .(Same as:Levothr oid, Synthroid) Synthroid No Notes: Memori a 4-21 Take 1 l 11:30: hour Constantia 00 before or 2 hours after meal; Enteral feeds may interefere with the absorption of this medication .(Same as:Levothr oid, Synthroid) Synthroid No Notes: Memori a 4-21 Take 1 l 11:30: hour Constantia 00 before or 2 hours after meal; Enteral feeds may interefere with the absorption of this medication .(Same as:Levothr oid, Synthroid) Synthroid No Notes: Memori a 4-21 Take 1 l 11:30: hour Syed 00 before or 2 hours after meal; Enteral feeds may interefere with the absorption of this medication .(Same as:Levothr oid, Synthroid) Synthroid No Notes: Memori a 4-21 Take 1 l 11:30: hour Syed 00 before or 2 hours after meal; Enteral feeds may interefere with the absorption of this medication .(Same as:Levothr oid, Synthroid) Synthroid No Notes: Memori a 4-21 Take 1 l 11:30: hour Constantia 00 before or 2 hours after meal; Enteral feeds may interefere with the absorption of this medication .(Same as:Levothr oid, Synthroid) Synthroid No Notes: Memori a 4-21 Take 1 l 11:30: hour Syed 00 before or 2 hours after meal; Enteral feeds may interefere with the absorption of this medication .(Same as:Levothr oid, Synthroid) Synthroid No Notes: Memori a 4-21 Take 1 l 11:30: hour Constantia 00 before or 2 hours after meal; Enteral feeds may interefere with the absorption of this medication .(Same as:Levothr oid, Synthroid) Synthroid No Notes: Memori a 4-21 Take 1 l 11:30: hour Syed 00 before or 2 hours after meal; Enteral feeds may interefere with the absorption of this medication .(Same as:Levothr oid, Synthroid) Synthroid No Notes: Memori a 4-21 Take 1 l 11:30: hour Syed 00 before or 2 hours after meal; Enteral feeds may interefere with the absorption of this medication .(Same as:Levothr oid, Synthroid) Zofran No Notes: Memoria 4-21 (Same as: l 08:36: Zofran) Syed 00 MEDICATION WASTE Product Size: 4 mg Product Wasted: ___ mg Zofran 2020-0 No Notes: Memoria 03-01 (Same as: l 08:36: Zofran) Syed 00 MEDICATION WASTE Product Size: 4 mg Product Wasted: ___ mg Zofran 2020-0 No Notes: Memoria 03-01 (Same as: l 08:36: Zofran) Syed 00 MEDICATION WASTE Product Size: 4 mg Product Wasted: ___ mg Zofran 2020-0 No Notes: Memoria 03-01 (Same as: l 08:36: Zofran) Syed 00 MEDICATION WASTE Product Size: 4 mg Product Wasted: ___ mg Zofran 2020-0 No Notes: Memoria 03-01 (Same as: l 08:36: Zofran) Syed 00 MEDICATION WASTE Product Size: 4 mg Product Wasted: ___ mg Zofran 2020-0 No Notes: Memoria 03-01 (Same as: l 08:36: Zofran) Syed 00 MEDICATION WASTE Product Size: 4 mg Product Wasted: ___ mg Zofran 2020-0 No Notes: Memoria 03-01 (Same as: l 08:36: Zofran) Syed 00 MEDICATION WASTE Product Size: 4 mg Product Wasted: ___ mg Zofran 2020-0 No Notes: Memoria 03-01 (Same as: l 08:36: Zofran) Syed 00 MEDICATION WASTE Product Size: 4 mg Product Wasted: ___ mg Zofran 2020-0 No Notes: Memoria 03-01 (Same as: l 08:36: Zofran) Syed 00 MEDICATION WASTE Product Size: 4 mg Product Wasted: ___ mg Zofran 2020-0 No Notes: Memoria 03-01 (Same as: l 08:36: Zofran) Syed 00 MEDICATION WASTE Product Size: 4 mg Product Wasted: ___ mg Zofran 2020-0 No Notes: Memoria - (Same as: l 08:36: Zofran) Syed 00 MEDICATION WASTE Product Size: 4 mg Product Wasted: ___ mg Zofran No Notes: Memoria 4-21 (Same as: l 08:36: Zofran) Syed 00 MEDICATION WASTE Product Size: 4 mg Product Wasted: ___ mg Acetaminoph No Notes: Ervin marybel en 325 MG / 03-01 (Same as: l Hydrocodone 08:13: [place] Bitartrate 00 325/5) Do 5 MG Oral not exceed Tablet 4gm/day of [[place] acetaminop 5/325] hen. Acetaminoph No Notes: Do M emoria en 325 MG / 03-01 not exceed l Hydrocodone 08:13: 4gm/day of Constantia Bitartrate 00 acetaminop 10 MG Oral hen. (Same Tablet as: [place] [[place] 325/10) 10/325] Acetaminoph No Notes: Ervin marybel en 325 MG / 03-01 (Same as: l Hydrocodone 08:13: [place] nn Bitartrate 00 325/5) Do 5 MG Oral not exceed Tablet 4gm/day of [[place] acetaminop 5/325] hen. Acetaminoph No Notes: Do M emoria en 325 MG / 03-01 not exceed l Hydrocodone 08:13: 4gm/day of Syed Bitartrate 00 acetaminop 10 MG Oral hen. (Same Tablet as: [place] [[place] 325/10) 10/325] Acetaminoph No Notes: Ervin marybel en 325 MG / 03-01 (Same as: l Hydrocodone 08:13: [place] nn Bitartrate 00 325/5) Do 5 MG Oral not exceed Tablet 4gm/day of [[place] acetaminop 5/325] hen. Acetaminoph No Notes: Do M emoria en 325 MG / 03-01 not exceed l Hydrocodone 08:13: 4gm/day of Constant[place] Bitartrate 00 acetaminop 10 MG Oral hen. (Same Tablet as: [place] [[place] 325/10) 10/325] Acetaminoph No Notes: Ervin marybel en 325 MG / 4-21 (Same as: l Hydrocodone 08:13: [place] nn Bitartrate 00 325/5) Do 5 MG Oral not exceed Tablet 4gm/day of [[place] acetaminop 5/325] hen. Acetaminoph No Notes: Do M emoria en 325 MG / 4-21 not exceed l Hydrocodone 08:13: 4gm/day of Syed Bitartrate 00 acetaminop 10 MG Oral hen. (Same Tablet as: [place] [[place] 325/10) 10/325] Acetaminoph No Notes: Ervin marybel en 325 MG / 4-21 (Same as: l Hydrocodone 08:13: [place] nn Bitartrate 00 325/5) Do 5 MG Oral not exceed Tablet 4gm/day of [[place] acetaminop 5/325] hen. Acetaminoph No Notes: Do M emoria en 325 MG / 4-21 not exceed l Hydrocodone 08:13: 4gm/day of Constant[place] Bitartrate 00 acetaminop 10 MG Oral hen. (Same Tablet as: [place] [[place] 325/10) 10/325] Acetaminoph No Notes: Ervin marybel en 325 MG / 4-21 (Same as: l Hydrocodone 08:13: [place] nn Bitartrate 00 325/5) Do 5 MG Oral not exceed Tablet 4gm/day of [[place] acetaminop 5/325] hen. Acetaminoph No Notes: Do M emoria en 325 MG / 4-21 not exceed l Hydrocodone 08:13: 4gm/day of Syed Bitartrate 00 acetaminop 10 MG Oral hen. (Same Tablet as: [place] [[place] 325/10) 10/325] Acetaminoph No Notes: Ervin marybel en 325 MG / 4-21 (Same as: l Hydrocodone 08:13: [place] nn Bitartrate 00 325/5) Do 5 MG Oral not exceed Tablet 4gm/day of [[place] acetaminop 5/325] hen. Acetaminoph No Notes: Do M emoria en 325 MG / 4-21 not exceed l Hydrocodone 08:13: 4gm/day of [place] Bitartrate 00 acetaminop 10 MG Oral hen. (Same Tablet as: [place] [[place] 325/10) 10/325] Acetaminoph No Notes: Ervin marybel en 325 MG / 4-21 (Same as: l Hydrocodone 08:13: [place] nn Bitartrate 00 325/5) Do 5 MG Oral not exceed Tablet 4gm/day of [[place] acetaminop 5/325] hen. Acetaminoph No Notes: Do M emoria en 325 MG / 4-21 not exceed l Hydrocodone 08:13: 4gm/day of Syed Bitartrate 00 acetaminop 10 MG Oral hen. (Same Tablet as: [place] [[place] 325/10) 10/325] Acetaminoph No Notes: Ervin marybel en 325 MG / 4-21 (Same as: l Hydrocodone 08:13: [place] nn Bitartrate 00 325/5) Do 5 MG Oral not exceed Tablet 4gm/day of [[place] acetaminop 5/325] hen. Acetaminoph No Notes: Do M emoria en 325 MG / -21 not exceed l Hydrocodone 08:13: 4gm/day of Syed Bitartrate 00 acetaminop 10 MG Oral hen. (Same Tablet as: [place] [[place] 325/10) 10/325] Acetaminoph No Notes: Ervin marybel en 325 MG / 4-21 (Same as: l Hydrocodone 08:13: [place] nn Bitartrate 00 325/5) Do 5 MG Oral not exceed Tablet 4gm/day of [[place] acetaminop 5/325] hen. Acetaminoph No Notes: Do M emoria en 325 MG / 4-21 not exceed l Hydrocodone 08:13: 4gm/day of Syed Bitartrate 00 acetaminop 10 MG Oral hen. (Same Tablet as: [place] [[place] 325/10) 10/325] Acetaminoph No Notes: Ervin marybel en 325 MG / 4-21 (Same as: l Hydrocodone 08:13: [place] nn Bitartrate 00 325/5) Do 5 MG Oral not exceed Tablet 4gm/day of [[place] acetaminop 5/325] hen. Acetaminoph No Notes: Do M emoria en 325 MG / 4-21 not exceed l Hydrocodone 08:13: 4gm/day of Syed Bitartrate 00 acetaminop 10 MG Oral hen. (Same Tablet as: [place] [[place] 325/10) 10325] Acetaminoph No Notes: Ervin marybel en 325 MG / 4-21 (Same as: l Hydrocodone 08:13: [place] nn Bitartrate 00 325/5) Do 5 MG Oral not exceed Tablet 4gm/day of [[place] acetaminop 5/325] hen. Acetaminoph No Notes: Do M emoria en 325 MG / -21 not exceed l Hydrocodone 08:13: 4gm/day of [place] Bitartrate 00 acetaminop 10 MG Oral hen. (Same Tablet as: [place] [[place] 325/10) 10/325] Levothyroxi Yes 50 Memori a ne Sodium 4-21 microgram l 0.05 MG 08:12: = 1 tab, Johnny n Oral Tablet 00 PO, Daily, [Synthroid] # 30 tab, 0 Refill(s) Levetiracet Yes 250 mg = 1 Memoria am 250 MG 4-21 tab, PO, l Oral Tablet 08:12: BID, # 60 H ermann [Keppra] 00 tab, 0 Refill(s) Levothyroxi Yes 50 Memori a ne Sodium 4-21 microgram l 0.05 MG 08:12: = 1 tab, Johnny n Oral Tablet 00 PO, Daily, [Synthroid] # 30 tab, 0 Refill(s) Levetiracet Yes 250 mg = 1 Memoria am 250 MG 4-21 tab, PO, l Oral Tablet 08:12: BID, # 60 H ermann [Keppra] 00 tab, 0 Refill(s) Levothyroxi Yes 50 Memori a ne Sodium 4-21 microgram l 0.05 MG 08:12: = 1 tab, Johnny n Oral Tablet 00 PO, Daily, [Synthroid] # 30 tab, 0 Refill(s) Levetiracet 2020-0 Yes 250 mg = 1 Memoria am 250 MG 4-21 tab, PO, l Oral Tablet 08:12: BID, # 60 H ermann [Keppra] 00 tab, 0 Refill(s) Levothyroxi 2020-0 Yes 50 Memori a ne Sodium 4-21 microgram l 0.05 MG 08:12: = 1 tab, Johnny n Oral Tablet 00 PO, Daily, [Synthroid] # 30 tab, 0 Refill(s) Levetiracet 2020-0 Yes 250 mg = 1 Memoria am 250 MG 4-21 tab, PO, l Oral Tablet 08:12: BID, # 60 H ermann [Keppra] 00 tab, 0 Refill(s) Levothyroxi 2020-0 Yes 50 Memori a ne Sodium 4-21 microgram l 0.05 MG 08:12: = 1 tab, Johnny n Oral Tablet 00 PO, Daily, [Synthroid] # 30 tab, 0 Refill(s) Levetiracet 2020-0 Yes 250 mg = 1 Memoria am 250 MG 4-21 tab, PO, l Oral Tablet 08:12: BID, # 60 H ermann [Keppra] 00 tab, 0 Refill(s) Levothyroxi 2020-0 Yes 50 Memori a ne Sodium 4-21 microgram l 0.05 MG 08:12: = 1 tab, Johnny n Oral Tablet 00 PO, Daily, [Synthroid] # 30 tab, 0 Refill(s) Levetiracet 2020-0 Yes 250 mg = 1 Memoria am 250 MG 4-21 tab, PO, l Oral Tablet 08:12: BID, # 60 H ermann [Keppra] 00 tab, 0 Refill(s) Levothyroxi 2020-0 Yes 50 Memori a ne Sodium 4-21 microgram l 0.05 MG 08:12: = 1 tab, Johnny n Oral Tablet 00 PO, Daily, [Synthroid] # 30 tab, 0 Refill(s) Levetiracet 2020-0 Yes 250 mg = 1 Memoria am 250 MG 4-21 tab, PO, l Oral Tablet 08:12: BID, # 60 H ermann [Keppra] 00 tab, 0 Refill(s) Levothyroxi 2020-0 Yes 50 Memori a ne Sodium 4-21 microgram l 0.05 MG 08:12: = 1 tab, Johnny n Oral Tablet 00 PO, Daily, [Synthroid] # 30 tab, 0 Refill(s) Levetiracet 2020-0 Yes 250 mg = 1 Memoria am 250 MG 4-21 tab, PO, l Oral Tablet 08:12: BID, # 60 H ermann [Keppra] 00 tab, 0 Refill(s) Levothyroxi 2020-0 Yes 50 Memori a ne Sodium 4-21 microgram l 0.05 MG 08:12: = 1 tab, Johnny n Oral Tablet 00 PO, Daily, [Synthroid] # 30 tab, 0 Refill(s) Levetiracet 2020-0 Yes 250 mg = 1 Memoria am 250 MG 4-21 tab, PO, l Oral Tablet 08:12: BID, # 60 H ermann [Keppra] 00 tab, 0 Refill(s) Levothyroxi 2020-0 Yes 50 Memori a ne Sodium 4-21 microgram l 0.05 MG 08:12: = 1 tab, Johnny n Oral Tablet 00 PO, Daily, [Synthroid] # 30 tab, 0 Refill(s) Levetiracet 2020-0 Yes 250 mg = 1 Memoria am 250 MG 4-21 tab, PO, l Oral Tablet 08:12: BID, # 60 H ermann [Keppra] 00 tab, 0 Refill(s) Levothyroxi 2020-0 Yes 50 Memori a ne Sodium 4-21 microgram l 0.05 MG 08:12: = 1 tab, Johnny n Oral Tablet 00 PO, Daily, [Synthroid] # 30 tab, 0 Refill(s) Levetiracet 2020-0 Yes 250 mg = 1 Memoria am 250 MG 4-21 tab, PO, l Oral Tablet 08:12: BID, # 60 H ermann [Keppra] 00 tab, 0 Refill(s) Levothyroxi 2020-0 Yes 50 Memori a ne Sodium 4-21 microgram l 0.05 MG 08:12: = 1 tab, Johnny n Oral Tablet 00 PO, Daily, [Synthroid] # 30 tab, 0 Refill(s) Levetiracet 2020-0 Yes 250 mg = 1 Memoria am 250 MG 4-21 tab, PO, l Oral Tablet 08:12: BID, # 60 H ermann [Keppra] 00 tab, 0 Refill(s) apixaban 2020-0 Yes 2.5 mg, Memori a 2.5 mg oral 4-21 PO, Q12H, l tablet 08:11: For Atrial Allyn nn 00 Fibrillati on, tab, 0 Refill(s) clopidogrel 2020-0 Yes 75 mg = 1 M emoria 75 MG Oral 4-21 tab, PO, l Tablet 08:11: Daily, # Syed [Plavix] 00 30 tab, 0 Refill(s) clonazePAM 2020-0 Yes 0.5 mg = 1 M emoria 0.5 mg oral 4-21 tab, PO, l tablet 08:11: BID, PRN Syed 00 anxiety, # 60 tab, 0 Refill(s) Famotidine 2020-0 Yes 20 mg = 1 Me moria 20 MG Oral 4-21 tab, PO, l Tablet 08:11: BID, # 6 [place] 00 tab, 0 Refill(s) Furosemide 2020-0 Yes 40 mg = 1 Me moria 40 MG Oral 4-21 tab, PO, l Tablet 08:11: Daily, # Syed [Lasix] 00 30 tab, 0 Refill(s) gabapentin 2020-0 Yes 100 mg = 1 M emoria 100 MG Oral 4-21 cap, PO, l Capsule 08:11: TID, # 90 Allyn nn 00 cap, 1 Refill(s) apixaban 2020-0 Yes 2.5 mg, Memori a 2.5 mg oral 4-21 PO, Q12H, l tablet 08:11: For Atrial Allyn nn 00 Fibrillati on, tab, 0 Refill(s) clopidogrel 2020-0 Yes 75 mg = 1 M emoria 75 MG Oral 4-21 tab, PO, l Tablet 08:11: Daily, # Syed [Plavix] 00 30 tab, 0 Refill(s) clonazePAM 202-0 Yes 0.5 mg = 1 M emoria 0.5 mg oral 4-21 tab, PO, l tablet 08:11: BID, PRN Constant[place] 00 anxiety, # 60 tab, 0 Refill(s) Famotidine 202-0 Yes 20 mg = 1 Me moria 20 MG Oral 4-21 tab, PO, l Tablet 08:11: BID, # 6 [place] 00 tab, 0 Refill(s) Furosemide 2021-0 Yes 40 mg = 1 Me moria 40 MG Oral 4-21 tab, PO, l Tablet 08:11: Daily, # Constantia [Lasix] 00 30 tab, 0 Refill(s) gabapentin 202-0 Yes 100 mg = 1 M emoria 100 MG Oral 4-21 cap, PO, l Capsule 08:11: TID, # 90 Allyn nn 00 cap, 1 Refill(s) apixaban 2020-0 Yes 2.5 mg, Memori a 2.5 mg oral 4-21 PO, Q12H, l tablet 08:11: For Atrial Allyn nn 00 Fibrillati on, tab, 0 Refill(s) clopidogrel 2020-0 Yes 75 mg = 1 M emoria 75 MG Oral 4-21 tab, PO, l Tablet 08:11: Daily, # Syed [Plavix] 00 30 tab, 0 Refill(s) clonazePAM 2020-0 Yes 0.5 mg = 1 M emoria 0.5 mg oral 4-21 tab, PO, l tablet 08:11: BID, PRN Syed 00 anxiety, # 60 tab, 0 Refill(s) Famotidine 2020-0 Yes 20 mg = 1 Me moria 20 MG Oral 4-21 tab, PO, l Tablet 08:11: BID, # 6 [place] 00 tab, 0 Refill(s) Furosemide 2021-0 Yes 40 mg = 1 Me moria 40 MG Oral 4-21 tab, PO, l Tablet 08:11: Daily, # Syed [Lasix] 00 30 tab, 0 Refill(s) gabapentin 2021-0 Yes 100 mg = 1 M emoria 100 MG Oral 4-21 cap, PO, l Capsule 08:11: TID, # 90 Allyn nn 00 cap, 1 Refill(s) apixaban 2021-0 Yes 2.5 mg, Memori a 2.5 mg oral 4-21 PO, Q12H, l tablet 08:11: For Atrial Allyn nn 00 Fibrillati on, tab, 0 Refill(s) clopidogrel 2021-0 Yes 75 mg = 1 M emoria 75 MG Oral 4-21 tab, PO, l Tablet 08:11: Daily, # Syed [Plavix] 00 30 tab, 0 Refill(s) clonazePAM 2021-0 Yes 0.5 mg = 1 M emoria 0.5 mg oral 4-21 tab, PO, l tablet 08:11: BID, PRN Syed 00 anxiety, # 60 tab, 0 Refill(s) Famotidine 202-0 Yes 20 mg = 1 Me moria 20 MG Oral 4-21 tab, PO, l Tablet 08:11: BID, # 6 [place] 00 tab, 0 Refill(s) Furosemide 2021-0 Yes 40 mg = 1 Me moria 40 MG Oral 4-21 tab, PO, l Tablet 08:11: Daily, # Syed [Lasix] 00 30 tab, 0 Refill(s) gabapentin 2020-0 Yes 100 mg = 1 M emoria 100 MG Oral 4-21 cap, PO, l Capsule 08:11: TID, # 90 Allyn nn 00 cap, 1 Refill(s) apixaban 2020-0 Yes 2.5 mg, Memori a 2.5 mg oral 4-21 PO, Q12H, l tablet 08:11: For Atrial Allyn nn 00 Fibrillati on, tab, 0 Refill(s) clopidogrel 202-0 Yes 75 mg = 1 M emoria 75 MG Oral 4-21 tab, PO, l Tablet 08:11: Daily, # Syed [Plavix] 00 30 tab, 0 Refill(s) clonazePAM 2021-0 Yes 0.5 mg = 1 M emoria 0.5 mg oral 4-21 tab, PO, l tablet 08:11: BID, PRN Syed 00 anxiety, # 60 tab, 0 Refill(s) Famotidine 2021-0 Yes 20 mg = 1 Me moria 20 MG Oral 4-21 tab, PO, l Tablet 08:11: BID, # 6 Constantia 00 tab, 0 Refill(s) Furosemide 2021-0 Yes 40 mg = 1 Me moria 40 MG Oral 4-21 tab, PO, l Tablet 08:11: Daily, # Syed [Lasix] 00 30 tab, 0 Refill(s) gabapentin 2021-0 Yes 100 mg = 1 M emoria 100 MG Oral 4-21 cap, PO, l Capsule 08:11: TID, # 90 Allyn nn 00 cap, 1 Refill(s) apixaban 2021-0 Yes 2.5 mg, Memori a 2.5 mg oral 4-21 PO, Q12H, l tablet 08:11: For Atrial Allyn nn 00 Fibrillati on, tab, 0 Refill(s) clopidogrel 2021-0 Yes 75 mg = 1 M emoria 75 MG Oral 4-21 tab, PO, l Tablet 08:11: Daily, # Constantia [Plavix] 00 30 tab, 0 Refill(s) clonazePAM 2021-0 Yes 0.5 mg = 1 M emoria 0.5 mg oral 4-21 tab, PO, l tablet 08:11: BID, PRN Constantia 00 anxiety, # 60 tab, 0 Refill(s) Famotidine 2020-0 Yes 20 mg = 1 Me moria 20 MG Oral 4-21 tab, PO, l Tablet 08:11: BID, # 6 Syed 00 tab, 0 Refill(s) Furosemide 2021-0 Yes 40 mg = 1 Me moria 40 MG Oral 4-21 tab, PO, l Tablet 08:11: Daily, # Constantia [Lasix] 00 30 tab, 0 Refill(s) gabapentin 2021-0 Yes 100 mg = 1 M emoria 100 MG Oral 4-21 cap, PO, l Capsule 08:11: TID, # 90 Allyn nn 00 cap, 1 Refill(s) apixaban 1-0 Yes 2.5 mg, Memori a 2.5 mg oral 4-21 PO, Q12H, l tablet 08:11: For Atrial Allyn nn 00 Fibrillati on, tab, 0 Refill(s) clopidogrel 2021-0 Yes 75 mg = 1 M emoria 75 MG Oral 4-21 tab, PO, l Tablet 08:11: Daily, # Syed [Plavix] 00 30 tab, 0 Refill(s) clonazePAM 2021-0 Yes 0.5 mg = 1 M emoria 0.5 mg oral 4-21 tab, PO, l tablet 08:11: BID, PRN Constantia 00 anxiety, # 60 tab, 0 Refill(s) Famotidine 2020-0 Yes 20 mg = 1 Me moria 20 MG Oral 4-21 tab, PO, l Tablet 08:11: BID, # 6 Syed 00 tab, 0 Refill(s) Furosemide 2020-0 Yes 40 mg = 1 Me moria 40 MG Oral 4-21 tab, PO, l Tablet 08:11: Daily, # Syed [Lasix] 00 30 tab, 0 Refill(s) gabapentin 2020-0 Yes 100 mg = 1 M emoria 100 MG Oral 4-21 cap, PO, l Capsule 08:11: TID, # 90 Allyn nn 00 cap, 1 Refill(s) apixaban 2020-0 Yes 2.5 mg, Memori a 2.5 mg oral 4-21 PO, Q12H, l tablet 08:11: For Atrial Allyn nn 00 Fibrillati on, tab, 0 Refill(s) clopidogrel 2020-0 Yes 75 mg = 1 M emoria 75 MG Oral 4-21 tab, PO, l Tablet 08:11: Daily, # Syed [Plavix] 00 30 tab, 0 Refill(s) clonazePAM 2020-0 Yes 0.5 mg = 1 M emoria 0.5 mg oral 4-21 tab, PO, l tablet 08:11: BID, PRN Syed 00 anxiety, # 60 tab, 0 Refill(s) Famotidine 2020-0 Yes 20 mg = 1 Me moria 20 MG Oral 4-21 tab, PO, l Tablet 08:11: BID, # 6 Constantia 00 tab, 0 Refill(s) Furosemide 2020-0 Yes 40 mg = 1 Me moria 40 MG Oral 4-21 tab, PO, l Tablet 08:11: Daily, # Syed [Lasix] 00 30 tab, 0 Refill(s) gabapentin 2020-0 Yes 100 mg = 1 M emoria 100 MG Oral 4-21 cap, PO, l Capsule 08:11: TID, # 90 Allyn nn 00 cap, 1 Refill(s) apixaban 1-0 Yes 2.5 mg, Memori a 2.5 mg oral 4-21 PO, Q12H, l tablet 08:11: For Atrial Allyn nn 00 Fibrillati on, tab, 0 Refill(s) clopidogrel 2021-0 Yes 75 mg = 1 M emoria 75 MG Oral 4-21 tab, PO, l Tablet 08:11: Daily, # Constantia [Plavix] 00 30 tab, 0 Refill(s) clonazePAM 202-0 Yes 0.5 mg = 1 M emoria 0.5 mg oral 4-21 tab, PO, l tablet 08:11: BID, PRN Syed 00 anxiety, # 60 tab, 0 Refill(s) Famotidine 202-0 Yes 20 mg = 1 Me moria 20 MG Oral 4-21 tab, PO, l Tablet 08:11: BID, # 6 Syed 00 tab, 0 Refill(s) Furosemide 202-0 Yes 40 mg = 1 Me moria 40 MG Oral 4-21 tab, PO, l Tablet 08:11: Daily, # Syed [Lasix] 00 30 tab, 0 Refill(s) gabapentin 2020-0 Yes 100 mg = 1 M emoria 100 MG Oral 4-21 cap, PO, l Capsule 08:11: TID, # 90 Allyn nn 00 cap, 1 Refill(s) apixaban 2020-0 Yes 2.5 mg, Memori a 2.5 mg oral 4-21 PO, Q12H, l tablet 08:11: For Atrial Allyn nn 00 Fibrillati on, tab, 0 Refill(s) clopidogrel 2020-0 Yes 75 mg = 1 M emoria 75 MG Oral 4-21 tab, PO, l Tablet 08:11: Daily, # Syed [Plavix] 00 30 tab, 0 Refill(s) clonazePAM 2020-0 Yes 0.5 mg = 1 M emoria 0.5 mg oral 4-21 tab, PO, l tablet 08:11: BID, PRN Constantia 00 anxiety, # 60 tab, 0 Refill(s) Famotidine 202-0 Yes 20 mg = 1 Me moria 20 MG Oral 4-21 tab, PO, l Tablet 08:11: BID, # 6 Syed 00 tab, 0 Refill(s) Furosemide 2021-0 Yes 40 mg = 1 Me moria 40 MG Oral 4-21 tab, PO, l Tablet 08:11: Daily, # Syed [Lasix] 00 30 tab, 0 Refill(s) gabapentin 202-0 Yes 100 mg = 1 M emoria 100 MG Oral 4-21 cap, PO, l Capsule 08:11: TID, # 90 Allyn nn 00 cap, 1 Refill(s) apixaban 2020-0 Yes 2.5 mg, Memori a 2.5 mg oral 4-21 PO, Q12H, l tablet 08:11: For Atrial Allyn nn 00 Fibrillati on, tab, 0 Refill(s) clopidogrel 2021-0 Yes 75 mg = 1 M emoria 75 MG Oral 4-21 tab, PO, l Tablet 08:11: Daily, # Syed [Plavix] 00 30 tab, 0 Refill(s) clonazePAM 2021-0 Yes 0.5 mg = 1 M emoria 0.5 mg oral 4-21 tab, PO, l tablet 08:11: BID, PRN Constantia 00 anxiety, # 60 tab, 0 Refill(s) Famotidine 2020-0 Yes 20 mg = 1 Me moria 20 MG Oral 4-21 tab, PO, l Tablet 08:11: BID, # 6 Constantia 00 tab, 0 Refill(s) Furosemide 2020-0 Yes 40 mg = 1 Me moria 40 MG Oral 4-21 tab, PO, l Tablet 08:11: Daily, # Syed [Lasix] 00 30 tab, 0 Refill(s) gabapentin 2020-0 Yes 100 mg = 1 M emoria 100 MG Oral 4-21 cap, PO, l Capsule 08:11: TID, # 90 Allyn nn 00 cap, 1 Refill(s) apixaban 2020-0 Yes 2.5 mg, Memori a 2.5 mg oral 4-21 PO, Q12H, l tablet 08:11: For Atrial Allyn nn 00 Fibrillati on, tab, 0 Refill(s) clopidogrel 2021-0 Yes 75 mg = 1 M emoria 75 MG Oral 4-21 tab, PO, l Tablet 08:11: Daily, # Constantia [Plavix] 00 30 tab, 0 Refill(s) clonazePAM 2021-0 Yes 0.5 mg = 1 M emoria 0.5 mg oral 4-21 tab, PO, l tablet 08:11: BID, PRN Syed 00 anxiety, # 60 tab, 0 Refill(s) Famotidine Yes 20 mg = 1 Me moria 20 MG Oral 4-21 tab, PO, l Tablet 08:11: BID, # 6 Constantia 00 tab, 0 Refill(s) Furosemide Yes 40 mg = 1 Me moria 40 MG Oral 4-21 tab, PO, l Tablet 08:11: Daily, # Constantia [Lasix] 00 30 tab, 0 Refill(s) gabapentin Yes 100 mg = 1 M emoria 100 MG Oral 4-21 cap, PO, l Capsule 08:11: TID, # 90 Allyn nn 00 cap, 1 Refill(s) normal 0 No 1,000 mL, Memori a saline 0.9% - Rate: 100 l IV 1,000 mL 08:10: ml/hr, Herm chandu 00 Infuse over: 10 hr, Route: IV, Dosing Weight 54.545 kg, Total Volume: 1,000, Priority: STAT, Start date: 03/01/21 3:10:00 CDT, Duration: 1 doses or times, Stop date: 03/01/21 13:09:00 CDT, 1.59, m2, 0 normal 0 No 1,000 mL, Memori a saline 0.9% - Rate: 100 l IV 1,000 mL 08:10: ml/hr, Herm chandu 00 Infuse over: 10 hr, Route: IV, Dosing Weight 54.545 kg, Total Volume: 1,000, Priority: STAT, Start date: 03/01/21 3:10:00 CDT, Duration: 1 doses or times, Stop date: 03/01/21 13:09:00 CDT, 1.59, m2, 0 normal 0 No 1,000 mL, Memori a saline 0.9% - Rate: 100 l IV 1,000 mL 08:10: ml/hr, Herm chandu 00 Infuse over: 10 hr, Route: IV, Dosing Weight 54.545 kg, Total Volume: 1,000, Priority: STAT, Start date: 03/01/21 3:10:00 CDT, Duration: 1 doses or times, Stop date: 03/01/21 13:09:00 CDT, 1.59, m2, 0 normal 2021-0 No 1,000 mL, Memori a saline 0.9% 4-21 Rate: 100 l IV 1,000 mL 08:10: ml/hr, Herm chandu 00 Infuse over: 10 hr, Route: IV, Dosing Weight 54.545 kg, Total Volume: 1,000, Priority: STAT, Start date: 03/01/21 3:10:00 CDT, Duration: 1 doses or times, Stop date: 03/01/21 13:09:00 CDT, 1.59, m2, 0 normal 2021-0 No 1,000 mL, Memori a saline 0.9% 4-21 Rate: 100 l IV 1,000 mL 08:10: ml/hr, Herm chandu 00 Infuse over: 10 hr, Route: IV, Dosing Weight 54.545 kg, Total Volume: 1,000, Priority: STAT, Start date: 03/01/21 3:10:00 CDT, Duration: 1 doses or times, Stop date: 03/01/21 13:09:00 CDT, 1.59, m2, 0 normal 2020-0 No 1,000 mL, Memori a saline 0.9% 4-21 Rate: 100 l IV 1,000 mL 08:10: ml/hr, Herm chandu 00 Infuse over: 10 hr, Route: IV, Dosing Weight 54.545 kg, Total Volume: 1,000, Priority: STAT, Start date: 03/01/21 3:10:00 CDT, Duration: 1 doses or times, Stop date: 03/01/21 13:09:00 CDT, 1.59, m2, 0 normal 2021-0 No 1,000 mL, Memori a saline 0.9% 4-21 Rate: 100 l IV 1,000 mL 08:10: ml/hr, Herm chandu 00 Infuse over: 10 hr, Route: IV, Dosing Weight 54.545 kg, Total Volume: 1,000, Priority: STAT, Start date: 03/01/21 3:10:00 CDT, Duration: 1 doses or times, Stop date: 03/01/21 13:09:00 CDT, 1.59, m2, 0 normal 2021-0 No 1,000 mL, Memori a saline 0.9% 4-21 Rate: 100 l IV 1,000 mL 08:10: ml/hr, Herm chandu 00 Infuse over: 10 hr, Route: IV, Dosing Weight 54.545 kg, Total Volume: 1,000, Priority: STAT, Start date: 03/01/21 3:10:00 CDT, Duration: 1 doses or times, Stop date: 03/01/21 13:09:00 CDT, 1.59, m2, 0 normal 2021-0 No 1,000 mL, Memori a saline 0.9% 4-21 Rate: 100 l IV 1,000 mL 08:10: ml/hr, Herm chandu 00 Infuse over: 10 hr, Route: IV, Dosing Weight 54.545 kg, Total Volume: 1,000, Priority: STAT, Start date: 03/01/21 3:10:00 CDT, Duration: 1 doses or times, Stop date: 03/01/21 13:09:00 CDT, 1.59, m2, 0 normal 2021-0 No 1,000 mL, Memori a saline 0.9% 4-21 Rate: 100 l IV 1,000 mL 08:10: ml/hr, Herm chandu 00 Infuse over: 10 hr, Route: IV, Dosing Weight 54.545 kg, Total Volume: 1,000, Priority: STAT, Start date: 03/01/21 3:10:00 CDT, Duration: 1 doses or times, Stop date: 03/01/21 13:09:00 CDT, 1.59, m2, 0 normal 2021-0 No 1,000 mL, Memori a saline 0.9% 4-21 Rate: 100 l IV 1,000 mL 08:10: ml/hr, Herm chandu 00 Infuse over: 10 hr, Route: IV, Dosing Weight 54.545 kg, Total Volume: 1,000, Priority: STAT, Start date: 03/01/21 3:10:00 CDT, Duration: 1 doses or times, Stop date: 03/01/21 13:09:00 CDT, 1.59, m2, 0 normal 2021-0 No 1,000 mL, Memori a saline 0.9% 4-21 Rate: 100 l IV 1,000 mL 08:10: ml/hr, Herm chandu 00 Infuse over: 10 hr, Route: IV, Dosing Weight 54.545 kg, Total Volume: 1,000, Priority: STAT, Start date: 03/01/21 3:10:00 CDT, Duration: 1 doses or times, Stop date: 03/01/21 13:09:00 CDT, 1.59, m2, 0 Dextrose 2020-0 No 12.5 gm, Memor ia 50% Syringe 03-01 25 mL, l (D50W) 08:08: Route: Constantia 00 IVP, Drug Form: INJ, Dosing Weight 54.545, kg, PRN, PRN Blood Glucose Results, Start date: 03/01/21 3:08:00 CDT, Duration: 30 day, Stop date: 03/31/21 3:07:00 CDT, 0 Glucagon 2020-0 No 1 mg, Memoria 03-01 Route: IM, l 08:08: Drug form: Constantia 00 PDR/INJ, PRN, Dosing Weight 54.545, kg, PRN Blood Glucose Results, Start date: 03/01/21 3:08:00 CDT, Duration: 30 day, Stop date: 03/31/21 3:07:00 CDT, 0 Ondansetron 2020-0 No Notes: Ervin marybel -21 (Same as: l 08:08: Zofran) MEDICATION WASTE Product Size: 4 mg Product Wasted: ___ mg Melatonin 2020-0 No Notes: Memori a -21 (Same as: l 08:08: Melatonin) Dextrose 2020-0 No 12.5 gm, Memor ia 50% Syringe 03-01 25 mL, l (D50W) 08:08: Route: Syed IVP, Drug Form: INJ, Dosing Weight 54.545, kg, PRN, PRN Blood Glucose Results, Start date: 03/01/21 3:08:00 CDT, Duration: 30 day, Stop date: 03/31/21 3:07:00 CDT, 0 Glucagon 2020-0 No 1 mg, Memoria 03-01 Route: IM, l 08:08: Drug form: Syed 00 PDR/INJ, PRN, Dosing Weight 54.545, kg, PRN Blood Glucose Results, Start date: 03/01/21 3:08:00 CDT, Duration: 30 day, Stop date: 03/31/21 3:07:00 CDT, 0 Ondansetron 2020-0 No Notes: Ervin marybel 4-21 (Same as: l 08:08: Zofran) MEDICATION WASTE Product Size: 4 mg Product Wasted: ___ mg Melatonin 2020-0 No Notes: Memori a 4-21 (Same as: l 08:08: Melatonin) Dextrose 2020-0 No 12.5 gm, Memor ia 50% Syringe 4-21 25 mL, l (D50W) 08:08: Route: Constantia IVP, Drug Form: INJ, Dosing Weight 54.545, kg, PRN, PRN Blood Glucose Results, Start date: 03/01/21 3:08:00 CDT, Duration: 30 day, Stop date: 03/31/21 3:07:00 CDT, 0 Glucagon 2020-0 No 1 mg, Memoria 03-01 Route: IM, l 08:08: Drug form: Syed 00 PDR/INJ, PRN, Dosing Weight 54.545, kg, PRN Blood Glucose Results, Start date: 03/01/21 3:08:00 CDT, Duration: 30 day, Stop date: 03/31/21 3:07:00 CDT, 0 Ondansetron 2020-0 No Notes: Ervin marybel 4-21 (Same as: l 08:08: Zofran) MEDICATION WASTE Product Size: 4 mg Product Wasted: ___ mg Melatonin 2020-0 No Notes: Memori a 4-21 (Same as: l 08:08: Melatonin) Dextrose 2020-0 No 12.5 gm, Memor ia 50% Syringe - 25 mL, l (D50W) 08:08: Route: Constantia 00 IVP, Drug Form: INJ, Dosing Weight 54.545, kg, PRN, PRN Blood Glucose Results, Start date: 03/01/21 3:08:00 CDT, Duration: 30 day, Stop date: 03/31/21 3:07:00 CDT, 0 Glucagon 2020-0 No 1 mg, Memoria - Route: IM, l 08:08: Drug form: Constantia PDR/INJ, PRN, Dosing Weight 54.545, kg, PRN Blood Glucose Results, Start date: 03/01/21 3:08:00 CDT, Duration: 30 day, Stop date: 03/31/21 3:07:00 CDT, 0 Ondansetron 2020-0 No Notes: Ervin marybel 4-21 (Same as: l 08:08: Zofran) MEDICATION WASTE Product Size: 4 mg Product Wasted: ___ mg Melatonin 2020-0 No Notes: Memori a 4-21 (Same as: l 08:08: Melatonin) Dextrose 2020-0 No 12.5 gm, Memor ia 50% Syringe 03-01 25 mL, l (D50W) 08:08: Route: Constantia 00 IVP, Drug Form: INJ, Dosing Weight 54.545, kg, PRN, PRN Blood Glucose Results, Start date: 03/01/21 3:08:00 CDT, Duration: 30 day, Stop date: 03/31/21 3:07:00 CDT, 0 Glucagon 2020-0 No 1 mg, Memoria 03-01 Route: IM, l 08:08: Drug form: PDR/INJ, PRN, Dosing Weight 54.545, kg, PRN Blood Glucose Results, Start date: 03/01/21 3:08:00 CDT, Duration: 30 day, Stop date: 03/31/21 3:07:00 CDT, 0 Ondansetron 2020-0 No Notes: Ervin marybel 4-21 (Same as: l 08:08: Zofran) MEDICATION WASTE Product Size: 4 mg Product Wasted: ___ mg Melatonin 2020-0 No Notes: Memori a 4-21 (Same as: l 08:08: Melatonin) Dextrose 2020-0 No 12.5 gm, Memor ia 50% Syringe - 25 mL, l (D50W) 08:08: Route: Syed 00 IVP, Drug Form: INJ, Dosing Weight 54.545, kg, PRN, PRN Blood Glucose Results, Start date: 03/01/21 3:08:00 CDT, Duration: 30 day, Stop date: 03/31/21 3:07:00 CDT, 0 Glucagon 1-0 No 1 mg, Memoria 03-01 Route: IM, l 08:08: Drug form: Constantia 00 PDR/INJ, PRN, Dosing Weight 54.545, kg, PRN Blood Glucose Results, Start date: 03/01/21 3:08:00 CDT, Duration: 30 day, Stop date: 03/31/21 3:07:00 CDT, 0 Ondansetron 2020-0 No Notes: Ervin marybel 4-21 (Same as: l 08:08: Zofran) MEDICATION WASTE Product Size: 4 mg Product Wasted: ___ mg Melatonin 2020- No Notes: Memori a 4-21 (Same as: l 08:08: Melatonin) Dextrose 2020-0 No 12.5 gm, Memor ia 50% Syringe 03-01 25 mL, l (D50W) 08:08: Route: IVP, Drug Form: INJ, Dosing Weight 54.545, kg, PRN, PRN Blood Glucose Results, Start date: 03/01/21 3:08:00 CDT, Duration: 30 day, Stop date: 03/31/21 3:07:00 CDT, 0 Glucagon 2020-0 No 1 mg, Memoria 03-01 Route: IM, l 08:08: Drug form: Syed 00 PDR/INJ, PRN, Dosing Weight 54.545, kg, PRN Blood Glucose Results, Start date: 03/01/21 3:08:00 CDT, Duration: 30 day, Stop date: 03/31/21 3:07:00 CDT, 0 Ondansetron 2020-0 No Notes: Ervin marybel 4-21 (Same as: l 08:08: Zofran) MEDICATION WASTE Product Size: 4 mg Product Wasted: ___ mg Melatonin 2020-0 No Notes: Memori a 4-21 (Same as: l 08:08: Melatonin) Dextrose 2020-0 No 12.5 gm, Memor ia 50% Syringe 03-01 25 mL, l (D50W) 08:08: Route: Syed 00 IVP, Drug Form: INJ, Dosing Weight 54.545, kg, PRN, PRN Blood Glucose Results, Start date: 03/01/21 3:08:00 CDT, Duration: 30 day, Stop date: 03/31/21 3:07:00 CDT, 0 Glucagon 2020-0 No 1 mg, Memoria 03-01 Route: IM, l 08:08: Drug form: Constantia 00 PDR/INJ, PRN, Dosing Weight 54.545, kg, PRN Blood Glucose Results, Start date: 03/01/21 3:08:00 CDT, Duration: 30 day, Stop date: 03/31/21 3:07:00 CDT, 0 Ondansetron 2020-0 No Notes: Ervin marybel 03-01 (Same as: l 08:08: Zofran) MEDICATION WASTE Product Size: 4 mg Product Wasted: ___ mg Melatonin 2020- No Notes: Memori a 03-01 (Same as: l 08:08: Melatonin) Dextrose 2020-0 No 12.5 gm, Memor ia 50% Syringe 03-01 25 mL, l (D50W) 08:08: Route: IVP, Drug Form: INJ, Dosing Weight 54.545, kg, PRN, PRN Blood Glucose Results, Start date: 03/01/21 3:08:00 CDT, Duration: 30 day, Stop date: 03/31/21 3:07:00 CDT, 0 Glucagon 2020-0 No 1 mg, Memoria 03-01 Route: IM, l 08:08: Drug form: Syed 00 PDR/INJ, PRN, Dosing Weight 54.545, kg, PRN Blood Glucose Results, Start date: 03/01/21 3:08:00 CDT, Duration: 30 day, Stop date: 03/31/21 3:07:00 CDT, 0 Ondansetron 2020-0 No Notes: Ervin marybel -21 (Same as: l 08:08: Zofran) MEDICATION WASTE Product Size: 4 mg Product Wasted: ___ mg Melatonin 2020-0 No Notes: Memori a 4-21 (Same as: l 08:08: Melatonin) Dextrose 0 No 12.5 gm, Memor ia 50% Syringe 03-01 25 mL, l (D50W) 08:08: Route: Constantia 00 IVP, Drug Form: INJ, Dosing Weight 54.545, kg, PRN, PRN Blood Glucose Results, Start date: 03/01/21 3:08:00 CDT, Duration: 30 day, Stop date: 03/31/21 3:07:00 CDT, 0 Glucagon 2020-0 No 1 mg, Memoria 03-01 Route: IM, l 08:08: Drug form: Syed PDR/INJ, PRN, Dosing Weight 54.545, kg, PRN Blood Glucose Results, Start date: 03/01/21 3:08:00 CDT, Duration: 30 day, Stop date: 03/31/21 3:07:00 CDT, 0 Ondansetron 2020-0 No Notes: Ervin marybel 4-21 (Same as: l 08:08: Zofran) MEDICATION WASTE Product Size: 4 mg Product Wasted: ___ mg Melatonin 2020- No Notes: Memori a 4-21 (Same as: l 08:08: Melatonin) Dextrose 0 No 12.5 gm, Memor ia 50% Syringe 03-01 25 mL, l (D50W) 08:08: Route: Syed 00 IVP, Drug Form: INJ, Dosing Weight 54.545, kg, PRN, PRN Blood Glucose Results, Start date: 03/01/21 3:08:00 CDT, Duration: 30 day, Stop date: 03/31/21 3:07:00 CDT, 0 Glucagon 2020-0 No 1 mg, Memoria 03-01 Route: IM, l 08:08: Drug form: Constantia 00 PDR/INJ, PRN, Dosing Weight 54.545, kg, PRN Blood Glucose Results, Start date: 03/01/21 3:08:00 CDT, Duration: 30 day, Stop date: 03/31/21 3:07:00 CDT, 0 Ondansetron 2020-0 No Notes: Ervin marybel 4-21 (Same as: l 08:08: Zofran) Syed 00 MEDICATION WASTE Product Size: 4 mg Product Wasted: ___ mg Melatonin No Notes: Memori a 03-01 (Same as: l 08:08: Melatonin) Dextrose No 12.5 gm, Memor ia 50% Syringe 03-01 25 mL, l (D50W) 08:08: Route: Syed 00 IVP, Drug Form: INJ, Dosing Weight 54.545, kg, PRN, PRN Blood Glucose Results, Start date: 03/01/21 3:08:00 CDT, Duration: 30 day, Stop date: 03/31/21 3:07:00 CDT, 0 Glucagon No 1 mg, Memoria 03-01 Route: IM, l 08:08: Drug form: Syed 00 PDR/INJ, PRN, Dosing Weight 54.545, kg, PRN Blood Glucose Results, Start date: 03/01/21 3:08:00 CDT, Duration: 30 day, Stop date: 03/31/21 3:07:00 CDT, 0 Ondansetron No Notes: Ervin marybel 03-01 (Same as: l 08:08: Zofran) MEDICATION WASTE Product Size: 4 mg Product Wasted: ___ mg Melatonin No Notes: Memori a 03-01 (Same as: l 08:08: Melatonin) Zofran 0 No 4 mg, Memoria 03-01 Route: l 02:56: IVP, Drug form: INJ, ONCE, Dosing Weight 54.545, kg, Priority: STAT, Start date: 02/28/21 21:56:00 CDT, Stop date: 02/28/21 21:56:00 CDT Morphine 2020-0 No 4 mg, Memoria 03-01 Route: l 02:56: IVP, ONCE, Dosing Weight 54.545, kg, Priority: STAT, Start date: 02/28/21 21:56:00 CDT, Stop date: 02/28/21 21:56:00 CDT Zofran 0 No 4 mg, Memoria 4-21 Route: l 02:56: IVP, Drug Constantia 00 form: INJ, ONCE, Dosing Weight 54.545, kg, Priority: STAT, Start date: 02/28/21 21:56:00 CDT, Stop date: 02/28/21 21:56:00 CDT Morphine 2021-0 No 4 mg, Memoria 4-21 Route: l 02:56: IVP, ONCE, Syed 00 Dosing Weight 54.545, kg, Priority: STAT, Start date: 02/28/21 21:56:00 CDT, Stop date: 02/28/21 21:56:00 CDT Zofran 2021-0 No 4 mg, Memoria 4-21 Route: l 02:56: IVP, Drug Constantia 00 form: INJ, ONCE, Dosing Weight 54.545, kg, Priority: STAT, Start date: 02/28/21 21:56:00 CDT, Stop date: 02/28/21 21:56:00 CDT Morphine 2021-0 No 4 mg, Memoria 4- Route: l 02:56: IVP, ONCE, Syed 00 Dosing Weight 54.545, kg, Priority: STAT, Start date: 02/28/21 21:56:00 CDT, Stop date: 02/28/21 21:56:00 CDT Zofran 2021-0 No 4 mg, Memoria 4- Route: l 02:56: IVP, Drug Constantia 00 form: INJ, ONCE, Dosing Weight 54.545, kg, Priority: STAT, Start date: 02/28/21 21:56:00 CDT, Stop date: 02/28/21 21:56:00 CDT Morphine 2021-0 No 4 mg, Memoria 4-21 Route: l 02:56: IVP, ONCE, Syed 00 Dosing Weight 54.545, kg, Priority: STAT, Start date: 02/28/21 21:56:00 CDT, Stop date: 02/28/21 21:56:00 CDT Zofran 2021-0 No 4 mg, Memoria 4-21 Route: l 02:56: IVP, Drug Constantia 00 form: INJ, ONCE, Dosing Weight 54.545, kg, Priority: STAT, Start date: 02/28/21 21:56:00 CDT, Stop date: 02/28/21 21:56:00 CDT Morphine 2021-0 No 4 mg, Memoria 4-21 Route: l 02:56: IVP, ONCE, Syed Dosing Weight 54.545, kg, Priority: STAT, Start date: 02/28/21 21:56:00 CDT, Stop date: 02/28/21 21:56:00 CDT Zofran 2021-0 No 4 mg, Memoria 4-21 Route: l 02:56: IVP, Drug Constantia 00 form: INJ, ONCE, Dosing Weight 54.545, kg, Priority: STAT, Start date: 02/28/21 21:56:00 CDT, Stop date: 02/28/21 21:56:00 CDT Morphine 2021-0 No 4 mg, Memoria 4-21 Route: l 02:56: IVP, ONCE, Syed 00 Dosing Weight 54.545, kg, Priority: STAT, Start date: 02/28/21 21:56:00 CDT, Stop date: 02/28/21 21:56:00 CDT Zofran 2021-0 No 4 mg, Memoria 4-21 Route: l 02:56: IVP, Drug Syed 00 form: INJ, ONCE, Dosing Weight 54.545, kg, Priority: STAT, Start date: 02/28/21 21:56:00 CDT, Stop date: 02/28/21 21:56:00 CDT Morphine 2021-0 No 4 mg, Memoria 4-21 Route: l 02:56: IVP, ONCE, Syed 00 Dosing Weight 54.545, kg, Priority: STAT, Start date: 02/28/21 21:56:00 CDT, Stop date: 02/28/21 21:56:00 CDT Zofran 2021-0 No 4 mg, Memoria 4-21 Route: l 02:56: IVP, Drug Constantia 00 form: INJ, ONCE, Dosing Weight 54.545, kg, Priority: STAT, Start date: 02/28/21 21:56:00 CDT, Stop date: 02/28/21 21:56:00 CDT Morphine 2021-0 No 4 mg, Memoria 4-21 Route: l 02:56: IVP, ONCE, Constantia 00 Dosing Weight 54.545, kg, Priority: STAT, Start date: 02/28/21 21:56:00 CDT, Stop date: 02/28/21 21:56:00 CDT Zofran 2021-0 No 4 mg, Memoria 4- Route: l 02:56: IVP, Drug Constantia 00 form: INJ, ONCE, Dosing Weight 54.545, kg, Priority: STAT, Start date: 02/28/21 21:56:00 CDT, Stop date: 02/28/21 21:56:00 CDT Morphine 2021-0 No 4 mg, Memoria 4- Route: l 02:56: IVP, ONCE, Syed 00 Dosing Weight 54.545, kg, Priority: STAT, Start date: 02/28/21 21:56:00 CDT, Stop date: 02/28/21 21:56:00 CDT Zofran 2021-0 No 4 mg, Memoria 4- Route: l 02:56: IVP, Drug Constantia 00 form: INJ, ONCE, Dosing Weight 54.545, kg, Priority: STAT, Start date: 02/28/21 21:56:00 CDT, Stop date: 02/28/21 21:56:00 CDT Morphine 2021-0 No 4 mg, Memoria 4- Route: l 02:56: IVP, ONCE, Syed 00 Dosing Weight 54.545, kg, Priority: STAT, Start date: 02/28/21 21:56:00 CDT, Stop date: 02/28/21 21:56:00 CDT Zofran 2021-0 No 4 mg, Memoria 4- Route: l 02:56: IVP, Drug Constantia 00 form: INJ, ONCE, Dosing Weight 54.545, kg, Priority: STAT, Start date: 02/28/21 21:56:00 CDT, Stop date: 02/28/21 21:56:00 CDT Morphine 2021-0 No 4 mg, Memoria 4-21 Route: l 02:56: IVP, ONCE, Constantia 00 Dosing Weight 54.545, kg, Priority: STAT, Start date: 02/28/21 21:56:00 CDT, Stop date: 02/28/21 21:56:00 CDT Zofran 1-0 No 4 mg, Memoria 03-01 Route: l 02:56: IVP, Drug Syed 00 form: INJ, ONCE, Dosing Weight 54.545, kg, Priority: STAT, Start date: 02/28/21 21:56:00 CDT, Stop date: 02/28/21 21:56:00 CDT Morphine 2021-0 No 4 mg, Memoria 03-01 Route: l 02:56: IVP, ONCE, Constantia 00 Dosing Weight 54.545, kg, Priority: STAT, Start date: 02/28/21 21:56:00 CDT, Stop date: 02/28/21 21:56:00 CDT iodixanol 2021-0 No 85 mL, Memori a 03-01 Route: l 02:37: IVP, Drug Constantia 00 Form: SOLN, Dosing Weight 54.545, kg, ONCALL, STAT, Start date: 02/28/21 21:37:00 CDT, Duration: 1 doses or times, Dose = 2.2ml/kg, Max dose = 100ml -- "To be infused by Radiology Staff ONLY" iodixanol 2021-0 No 85 mL, Memori a 03-01 Route: l 02:37: IVP, Drug Constantia 00 Form: SOLN, Dosing Weight 54.545, kg, ONCALL, STAT, Start date: 02/28/21 21:37:00 CDT, Duration: 1 doses or times, Dose = 2.2ml/kg, Max dose = 100ml -- "To be infused by Radiology Staff ONLY" iodixanol 2021-0 No 85 mL, Memori a 03-01 Route: l 02:37: IVP, Drug Syed 00 Form: SOLN, Dosing Weight 54.545, kg, ONCALL, STAT, Start date: 02/28/21 21:37:00 CDT, Duration: 1 doses or times, Dose = 2.2ml/kg, Max dose = 100ml -- "To be infused by Radiology Staff ONLY" iodixanol 2021-0 No 85 mL, Memori a 03-01 Route: l 02:37: IVP, Drug Constantia 00 Form: SOLN, Dosing Weight 54.545, kg, ONCALL, STAT, Start date: 02/28/21 21:37:00 CDT, Duration: 1 doses or times, Dose = 2.2ml/kg, Max dose = 100ml -- "To be infused by Radiology Staff ONLY" iodixanol 2021-0 No 85 mL, Memori a 03-01 Route: l 02:37: IVP, Drug Constantia 00 Form: SOLN, Dosing Weight 54.545, kg, ONCALL, STAT, Start date: 02/28/21 21:37:00 CDT, Duration: 1 doses or times, Dose = 2.2ml/kg, Max dose = 100ml -- "To be infused by Radiology Staff ONLY" iodixanol 2021-0 No 85 mL, Memori a 03-01 Route: l 02:37: IVP, Drug Syed 00 Form: SOLN, Dosing Weight 54.545, kg, ONCALL, STAT, Start date: 02/28/21 21:37:00 CDT, Duration: 1 doses or times, Dose = 2.2ml/kg, Max dose = 100ml -- "To be infused by Radiology Staff ONLY" iodixanol 2021-0 No 85 mL, Memori a 03-01 Route: l 02:37: IVP, Drug Constantia 00 Form: SOLN, Dosing Weight 54.545, kg, ONCALL, STAT, Start date: 02/28/21 21:37:00 CDT, Duration: 1 doses or times, Dose = 2.2ml/kg, Max dose = 100ml -- "To be infused by Radiology Staff ONLY" iodixanol 2021-0 No 85 mL, Memori a 03-01 Route: l 02:37: IVP, Drug Constantia 00 Form: SOLN, Dosing Weight 54.545, kg, ONCALL, STAT, Start date: 02/28/21 21:37:00 CDT, Duration: 1 doses or times, Dose = 2.2ml/kg, Max dose = 100ml -- "To be infused by Radiology Staff ONLY" iodixanol 2021-0 No 85 mL, Memori a 4 Route: l 02:37: IVP, Drug Syed 00 Form: SOLN, Dosing Weight 54.545, kg, ONCALL, STAT, Start date: 02/28/21 21:37:00 CDT, Duration: 1 doses or times, Dose = 2.2ml/kg, Max dose = 100ml -- "To be infused by Radiology Staff ONLY" iodixanol 2020-0 No 85 mL, Memori a 03-01 Route: l 02:37: IVP, Drug Constantia 00 Form: SOLN, Dosing Weight 54.545, kg, ONCALL, STAT, Start date: 02/28/21 21:37:00 CDT, Duration: 1 doses or times, Dose = 2.2ml/kg, Max dose = 100ml -- "To be infused by Radiology Staff ONLY" iodixanol 2020-0 No 85 mL, Memori a 03-01 Route: l 02:37: IVP, Drug Constantia Form: SOLN, Dosing Weight 54.545, kg, ONCALL, STAT, Start date: 02/28/21 21:37:00 CDT, Duration: 1 doses or times, Dose = 2.2ml/kg, Max dose = 100ml -- "To be infused by Radiology Staff ONLY" iodixanol 2020-0 No 85 mL, Memori a 03-01 Route: l 02:37: IVP, Drug Syed Form: SOLN, Dosing Weight 54.545, kg, ONCALL, STAT, Start date: 02/28/21 21:37:00 CDT, Duration: 1 doses or times, Dose = 2.2ml/kg, Max dose = 100ml -- "To be infused by Radiology Staff ONLY" Isolyte S No Notes: Memori a PH-7.4 4-20 (Same as: l (Bolus) IV 23:28: Isolyte S He rmann 00 PH7.4, Normosol-R PH 7.4, Plasma-Lyt e A ) Isolyte S No Notes: Memori a PH-7.4 4-20 (Same as: l (Bolus) IV 23:28: Isolyte S He rmann 00 PH7.4, Normosol-R PH 7.4, Plasma-Lyt e A ) Isolyte S No Notes: Memori a PH-7.4 4-20 (Same as: l (Bolus) IV 23:28: Isolyte S Hong rmann 00 PH7.4, Normosol-R PH 7.4, Plasma-Lyt e A ) Isolyte S No Notes: Memori a PH-7.4 4-20 (Same as: l (Bolus) IV 23:28: Isolyte S He rmann 00 PH7.4, Normosol-R PH 7.4, Plasma-Lyt e A ) Isolyte S No Notes: Memori a PH-7.4 4-20 (Same as: l (Bolus) IV 23:28: Isolyte S He rmann 00 PH7.4, Normosol-R PH 7.4, Plasma-Lyt e A ) Isolyte S No Notes: Memori a PH-7.4 4-20 (Same as: l (Bolus) IV 23:28: Isolyte S He rmann 00 PH7.4, Normosol-R PH 7.4, Plasma-Lyt e A ) Isolyte S No Notes: Memori a PH-7.4 4-20 (Same as: l (Bolus) IV 23:28: Isolyte S He rmann 00 PH7.4, Normosol-R PH 7.4, Plasma-Lyt e A ) Isolyte S No Notes: Memori a PH-7.4 4-20 (Same as: l (Bolus) IV 23:28: Isolyte S He rmann 00 PH7.4, Normosol-R PH 7.4, Plasma-Lyt e A ) Isolyte S No Notes: Memori a PH-7.4 4-20 (Same as: l (Bolus) IV 23:28: Isolyte S He rmann 00 PH7.4, Normosol-R PH 7.4, Plasma-Lyt e A ) Isolyte S 2020- No Notes: Memori a PH-7.4 4-20 (Same as: l (Bolus) IV 23:28: Isolyte S He rmann 00 PH7.4, Normosol-R PH 7.4, Plasma-Lyt e A ) Isolyte S 2020- No Notes: Memori a PH-7.4 4-20 (Same as: l (Bolus) IV 23:28: Isolyte S He rmann 00 PH7.4, Normosol-R PH 7.4, Plasma-Lyt e A ) Isolyte S 2020-0 No Notes: Memori a PH-7.4 -20 (Same as: l (Bolus) IV 23:28: Isolyte S He rmann 00 PH7.4, Normosol-R PH 7.4, Plasma-Lyt e A ) Morphine 2021-0 No 2 mg, Memoria 4-20 Route: l 21:58: IVP, ONCE, Dosing Weight 54.545, kg, Priority: STAT, Start date: 02/28/21 16:58:00 CDT, Stop date: 02/28/21 16:58:00 CDT Morphine 2021-0 No 2 mg, Memoria 4-20 Route: l 21:58: IVP, ONCE, Dosing Weight 54.545, kg, Priority: STAT, Start date: 02/28/21 16:58:00 CDT, Stop date: 02/28/21 16:58:00 CDT Morphine 2021-0 No 2 mg, Memoria 4-20 Route: l 21:58: IVP, ONCE, Dosing Weight 54.545, kg, Priority: STAT, Start date: 02/28/21 16:58:00 CDT, Stop date: 02/28/21 16:58:00 CDT Morphine 2021-0 No 2 mg, Memoria 4-20 Route: l 21:58: IVP, ONCE, Dosing Weight 54.545, kg, Priority: STAT, Start date: 02/28/21 16:58:00 CDT, Stop date: 02/28/21 16:58:00 CDT Morphine 2021-0 No 2 mg, Memoria 4-20 Route: l 21:58: IVP, ONCE, Dosing Weight 54.545, kg, Priority: STAT, Start date: 02/28/21 16:58:00 CDT, Stop date: 02/28/21 16:58:00 CDT Morphine 2021-0 No 2 mg, Memoria 4-20 Route: l 21:58: IVP, ONCE, Dosing Weight 54.545, kg, Priority: STAT, Start date: 02/28/21 16:58:00 CDT, Stop date: 02/28/21 16:58:00 CDT Morphine 2021-0 No 2 mg, [facility]oria 4-20 Route: l 21:58: IVP, ONCE, Syed 00 Dosing Weight 54.545, kg, Priority: STAT, Start date: 02/28/21 16:58:00 CDT, Stop date: 02/28/21 16:58:00 CDT Morphine 2021-0 No 2 mg, [facility]oria 4-20 Route: l 21:58: IVP, ONCE, Constantia 00 Dosing Weight 54.545, kg, Priority: STAT, Start date: 02/28/21 16:58:00 CDT, Stop date: 02/28/21 16:58:00 CDT Morphine 2021-0 No 2 mg, Memoria 4-20 Route: l 21:58: IVP, ONCE, Dosing Weight 54.545, kg, Priority: STAT, Start date: 02/28/21 16:58:00 CDT, Stop date: 02/28/21 16:58:00 CDT Morphine 2021-0 No 2 mg, Memoria 4-20 Route: l 21:58: IVP, ONCE, Dosing Weight 54.545, kg, Priority: STAT, Start date: 02/28/21 16:58:00 CDT, Stop date: 02/28/21 16:58:00 CDT Morphine 2021-0 No 2 mg, Memoria 4-20 Route: l 21:58: IVP, ONCE, Dosing Weight 54.545, kg, Priority: STAT, Start date: 02/28/21 16:58:00 CDT, Stop date: 02/28/21 16:58:00 CDT Morphine 2021-0 No 2 mg, Memoria 4-20 Route: l 21:58: IVP, ONCE, Dosing Weight 54.545, kg, Priority: STAT, Start date: 02/28/21 16:58:00 CDT, Stop date: 02/28/21 16:58:00 CDT Zofran 2021-0 No 4 mg, Memoria 4-20 Route: l 21:21: IVP, Drug Syed 00 form: INJ, ONCE, Dosing Weight 54.545, kg, Priority: STAT, Start date: 02/28/21 16:21:00 CDT, Stop date: 02/28/21 16:21:00 CDT Zofran 2021-0 No 4 mg, [facility]oria 4-20 Route: l 21:21: IVP, Drug Constantia 00 form: INJ, ONCE, Dosing Weight 54.545, kg, Priority: STAT, Start date: 02/28/21 16:21:00 CDT, Stop date: 02/28/21 16:21:00 CDT Zofran 2021-0 No 4 mg, Memoria 4-20 Route: l 21:21: IVP, Drug Constantia 00 form: INJ, ONCE, Dosing Weight 54.545, kg, Priority: STAT, Start date: 02/28/21 16:21:00 CDT, Stop date: 02/28/21 16:21:00 CDT Zofran 2021-0 No 4 mg, [facility]oria 4-20 Route: l 21:21: IVP, Drug Syed 00 form: INJ, ONCE, Dosing Weight 54.545, kg, Priority: STAT, Start date: 02/28/21 16:21:00 CDT, Stop date: 02/28/21 16:21:00 CDT Zofran 2021-0 No 4 mg, [facility] 4-20 Route: l 21:21: IVP, Drug Syed 00 form: INJ, ONCE, Dosing Weight 54.545, kg, Priority: STAT, Start date: 02/28/21 16:21:00 CDT, Stop date: 02/28/21 16:21:00 CDT Zofran 2021-0 No 4 mg, [facility] 4-20 Route: l 21:21: IVP, Drug Constantia 00 form: INJ, ONCE, Dosing Weight 54.545, kg, Priority: STAT, Start date: 02/28/21 16:21:00 CDT, Stop date: 02/28/21 16:21:00 CDT Zofran 2021-0 No 4 mg, [facility] 4-20 Route: l 21:21: IVP, Drug Constantia 00 form: INJ, ONCE, Dosing Weight 54.545, kg, Priority: STAT, Start date: 02/28/21 16:21:00 CDT, Stop date: 02/28/21 16:21:00 CDT Zofran 1-0 No 4 mg, [facility] 4-20 Route: l 21:21: IVP, Drug Syed 00 form: INJ, ONCE, Dosing Weight 54.545, kg, Priority: STAT, Start date: 02/28/21 16:21:00 CDT, Stop date: 02/28/21 16:21:00 CDT Zofran 2020-0 No 4 mg, [facility] 4-20 Route: l 21:21: IVP, Drug Constantia form: INJ, ONCE, Dosing Weight 54.545, kg, Priority: STAT, Start date: 02/28/21 16:21:00 CDT, Stop date: 02/28/21 16:21:00 CDT Zofran 1-0 No 4 mg, [facility] 4-20 Route: l 21:21: IVP, Drug Constantia form: INJ, ONCE, Dosing Weight 54.545, kg, Priority: STAT, Start date: 02/28/21 16:21:00 CDT, Stop date: 02/28/21 16:21:00 CDT Zofran 2020-0 No 4 mg, [facility] 4-20 Route: l 21:21: IVP, Drug Syed 00 form: INJ, ONCE, Dosing Weight 54.545, kg, Priority: STAT, Start date: 02/28/21 16:21:00 CDT, Stop date: 02/28/21 16:21:00 CDT Zofran 1-0 No 4 mg, [facility]oria 4-20 Route: l 21:21: IVP, Drug Constantia 00 form: INJ, ONCE, Dosing Weight 54.545, kg, Priority: STAT, Start date: 02/28/21 16:21:00 CDT, Stop date: 02/28/21 16:21:00 CDT levETIRAcet levETIRAcet 2019-0 Yes HERMELINDA TAKE 1 UT am 250 MG am 250 MG 4-23 FERRENDELL TABLET BY [facility] Oral Tablet Oral Tablet 00:00: I M.D. MOUTH ans 00 TWICE DAILY meropenem 2019-0 Yes 500 mg, Memor ia 500 mg 3-29 IVPB, l intravenous 15:39: ABXQ8H, 0 H ermann injection 00 Refill(s) Levetiracet 2020-0 Yes 500 mg = 1 Memoria am 500 MG 3-29 tab, PO, l Oral Tablet 15:39: Q12H, 0 Her feng 00 Refill(s) apixaban 2020-0 Yes 2.5 mg = 1 Mem oria 2.5 mg oral 3-29 tab, PO, l tablet 15:39: Q12H, 0 Constantia 00 Refill(s) metoprolol 2020-0 Yes 12.5 mg = Me moria 25 mg oral 3-29 0.5 tab, l tablet, 15:39: PO, Daily, Herm chandu extended 00 0 release Refill(s) POLYETHYLEN 2020-0 Yes PO, Daily, Memoria E GLYCOL 3-29 0 l 3350 15:39: Refill(s) Constantia 00 sennosides, 2020-0 Yes 8.6 mg = 1 [facility] HOME 8.6 MG 3-29 tab, PO, l Oral Tablet 15:39: BID, 0 Herm chandu Refill(s) meropenem 2020-0 Yes 500 mg, Mem[facility] ia 500 mg 3-29 IVPB, l intravenous 15:39: ABXQ8H, 0 H ermann injection 00 Refill(s) Levetiracet 2020-0 Yes 500 mg = 1 Memoria am 500 MG 3-29 tab, PO, l Oral Tablet 15:39: Q12H, 0 [facility] feng Refill(s) apixaban 2020-0 Yes 2.5 mg = 1 Mem oria 2.5 mg oral 3-29 tab, PO, l tablet 15:39: Q12H, 0 Constantia 00 Refill(s) metoprolol 2020-0 Yes 12.5 mg = Me moria 25 mg oral 3-29 0.5 tab, l tablet, 15:39: PO, Daily, Herm chandu extended 00 0 release Refill(s) POLYETHYLEN 2020-0 Yes PO, Daily, Memoria E GLYCOL 3-29 0 l 3350 15:39: Refill(s) Syed 00 sennosides, 2020-0 Yes 8.6 mg = 1 [facility] CARE HOME 8.6 MG 3-29 tab, PO, l Oral Tablet 15:39: BID, 0 Herm chandu 00 Refill(s) meropenem 2020-0 Yes 500 mg, Mem[facility] ia 500 mg 3-29 IVPB, l intravenous 15:39: ABXQ8H, 0 H ermann injection 00 Refill(s) Levetiracet 2020-0 Yes 500 mg = 1 Memoria am 500 MG 3-29 tab, PO, l Oral Tablet 15:39: Q12H, 0 Her feng 00 Refill(s) apixaban 2020-0 Yes 2.5 mg = 1 Mem oria 2.5 mg oral 3-29 tab, PO, l tablet 15:39: Q12H, 0 Constantia 00 Refill(s) metoprolol 2020-0 Yes 12.5 mg = Me moria 25 mg oral 3-29 0.5 tab, l tablet, 15:39: PO, Daily, Herm chandu extended 00 0 release Refill(s) POLYETHYLEN 2020-0 Yes PO, Daily, Mem[facility] E GLYCOL 3-29 0 l 3350 15:39: Refill(s) Constantia 00 sennosides, 2020-0 Yes 8.6 mg = 1 [facility] 8.6 MG 3-29 tab, PO, l Oral Tablet 15:39: BID, 0 Herm chandu 00 Refill(s) meropenem 2020-0 Yes 500 mg, Mem[facility] ia 500 mg 3-29 IVPB, l intravenous 15:39: ABXQ8H, 0 H ermann injection 00 Refill(s) Levetiracet 2020-0 Yes 500 mg = 1 Memoria am 500 MG 3-29 tab, PO, l Oral Tablet 15:39: Q12H, 0 Her feng 00 Refill(s) apixaban 2020-0 Yes 2.5 mg = 1 Mem oria 2.5 mg oral 3-29 tab, PO, l tablet 15:39: Q12H, 0 Syed 00 Refill(s) metoprolol 2020-0 Yes 12.5 mg = Me moria 25 mg oral 3-29 0.5 tab, l tablet, 15:39: PO, Daily, Herm chandu extended 00 0 release Refill(s) POLYETHYLEN 2020-0 Yes PO, Daily, Memoria E GLYCOL 3-29 0 l 3350 15:39: Refill(s) Syed 00 sennosides, 2020-0 Yes 8.6 mg = 1 [facility] 8.6 MG 3-29 tab, PO, l Oral Tablet 15:39: BID, 0 Herm chandu 00 Refill(s) meropenem 2020-0 Yes 500 mg, Mem[facility] ia 500 mg 3-29 IVPB, l intravenous 15:39: ABXQ8H, 0 H ermann injection 00 Refill(s) Levetiracet 2020-0 Yes 500 mg = 1 Memoria am 500 MG 3-29 tab, PO, l Oral Tablet 15:39: Q12H, 0 Her feng 00 Refill(s) apixaban 2020-0 Yes 2.5 mg = 1 Mem oria 2.5 mg oral 3-29 tab, PO, l tablet 15:39: Q12H, 0 Constantia Refill(s) metoprolol 2020-0 Yes 12.5 mg = Me moria 25 mg oral 3-29 0.5 tab, l tablet, 15:39: PO, Daily, Herm chandu extended 00 0 release Refill(s) POLYETHYLEN 2020-0 Yes PO, Daily, Memoria E GLYCOL 3-29 0 l 3350 15:39: Refill(s) Syed sennosides, 2020-0 Yes 8.6 mg = 1 [facility] 8.6 MG 3-29 tab, PO, l Oral Tablet 15:39: BID, 0 Herm chandu 00 Refill(s) meropenem 2020-0 Yes 500 mg, Memor ia 500 mg 3-29 IVPB, l intravenous 15:39: ABXQ8H, 0 H ermann injection 00 Refill(s) Levetiracet 2020-0 Yes 500 mg = 1 Memoria am 500 MG 3-29 tab, PO, l Oral Tablet 15:39: Q12H, 0 Her feng 00 Refill(s) apixaban 2020-0 Yes 2.5 mg = 1 Mem oria 2.5 mg oral 3-29 tab, PO, l tablet 15:39: Q12H, 0 Syed 00 Refill(s) metoprolol 2020-0 Yes 12.5 mg = Me moria 25 mg oral 3-29 0.5 tab, l tablet, 15:39: PO, Daily, Herm chandu extended 00 0 release Refill(s) POLYETHYLEN 2020-0 Yes PO, Daily, Memoria E GLYCOL 3-29 0 l 3350 15:39: Refill(s) Syed 00 sennosides, 2020-0 Yes 8.6 mg = 1 [facility] 8.6 MG 3-29 tab, PO, l Oral Tablet 15:39: BID, 0 Herm chandu 00 Refill(s) meropenem 2020-0 Yes 500 mg, Mem[facility] ia 500 mg 3-29 IVPB, l intravenous 15:39: ABXQ8H, 0 H ermann injection 00 Refill(s) Levetiracet 2020-0 Yes 500 mg = 1 Memoria am 500 MG 3-29 tab, PO, l Oral Tablet 15:39: Q12H, 0 Her feng 00 Refill(s) apixaban 2020-0 Yes 2.5 mg = 1 Mem oria 2.5 mg oral 3-29 tab, PO, l tablet 15:39: Q12H, 0 Syed 00 Refill(s) metoprolol 2020-0 Yes 12.5 mg = Me moria 25 mg oral 3-29 0.5 tab, l tablet, 15:39: PO, Daily, Herm chandu extended 00 0 release Refill(s) POLYETHYLEN 2020-0 Yes PO, Daily, Memoria E GLYCOL 3-29 0 l 3350 15:39: Refill(s) Syed 00 sennosides, 2020-0 Yes 8.6 mg = 1 [facility] 8.6 MG 3-29 tab, PO, l Oral Tablet 15:39: BID, 0 Herm chandu 00 Refill(s) meropenem 2020-0 Yes 500 mg, Memor ia 500 mg 3-29 IVPB, l intravenous 15:39: ABXQ8H, 0 H ermann injection 00 Refill(s) Levetiracet 2020-0 Yes 500 mg = 1 Memoria am 500 MG 3-29 tab, PO, l Oral Tablet 15:39: Q12H, 0 Her feng 00 Refill(s) apixaban 2020-0 Yes 2.5 mg = 1 Mem oria 2.5 mg oral 3-29 tab, PO, l tablet 15:39: Q12H, 0 Syed 00 Refill(s) metoprolol 2020-0 Yes 12.5 mg = Me moria 25 mg oral 3-29 0.5 tab, l tablet, 15:39: PO, Daily, Herm chandu extended 00 0 release Refill(s) POLYETHYLEN 2020-0 Yes PO, Daily, Memoria E GLYCOL 3-29 0 l 3350 15:39: Refill(s) sennosides, 2020-0 Yes 8.6 mg = 1 [facility] 8.6 MG 3-29 tab, PO, l Oral Tablet 15:39: BID, 0 Herm chandu Refill(s) meropenem 2020-0 Yes 500 mg, Memor ia 500 mg 3-29 IVPB, l intravenous 15:39: ABXQ8H, 0 H ermann injection 00 Refill(s) Levetiracet 2020-0 Yes 500 mg = 1 Memoria am 500 MG 3-29 tab, PO, l Oral Tablet 15:39: Q12H, 0 Her feng 00 Refill(s) apixaban 2020-0 Yes 2.5 mg = 1 Mem oria 2.5 mg oral 3-29 tab, PO, l tablet 15:39: Q12H, 0 Syed Refill(s) metoprolol 2020-0 Yes 12.5 mg = Me moria 25 mg oral 3-29 0.5 tab, l tablet, 15:39: PO, Daily, Herm chandu extended 00 0 release Refill(s) POLYETHYLEN 2020-0 Yes PO, Daily, Memoria E GLYCOL 3-29 0 l 3350 15:39: Refill(s) sennosides, 2020-0 Yes 8.6 mg = 1 [facility] 8.6 MG 3-29 tab, PO, l Oral Tablet 15:39: BID, 0 Herm chandu Refill(s) meropenem 2020-0 Yes 500 mg, Memor ia 500 mg 3-29 IVPB, l intravenous 15:39: ABXQ8H, 0 H ermann injection 00 Refill(s) Levetiracet 2020-0 Yes 500 mg = 1 Memoria am 500 MG 3-29 tab, PO, l Oral Tablet 15:39: Q12H, 0 Her feng 00 Refill(s) apixaban 2020-0 Yes 2.5 mg = 1 Mem oria 2.5 mg oral 3-29 tab, PO, l tablet 15:39: Q12H, 0 Syed 00 Refill(s) metoprolol 2020-0 Yes 12.5 mg = Me moria 25 mg oral 3-29 0.5 tab, l tablet, 15:39: PO, Daily, Herm chandu extended 00 0 release Refill(s) POLYETHYLEN 2020-0 Yes PO, Daily, Memoria E GLYCOL 3-29 0 l 3350 15:39: Refill(s) Syed 00 sennosides, 2020-0 Yes 8.6 mg = 1 [facility] 8.6 MG 3-29 tab, PO, l Oral Tablet 15:39: BID, 0 Herm chandu 00 Refill(s) meropenem 2020-0 Yes 500 mg, Memor ia 500 mg 3-29 IVPB, l intravenous 15:39: ABXQ8H, 0 H ermann injection 00 Refill(s) Levetiracet 2020-0 Yes 500 mg = 1 Memoria am 500 MG 3-29 tab, PO, l Oral Tablet 15:39: Q12H, 0 Her feng 00 Refill(s) apixaban 2020-0 Yes 2.5 mg = 1 Mem oria 2.5 mg oral 3-29 tab, PO, l tablet 15:39: Q12H, 0 Syed 00 Refill(s) metoprolol 2020-0 Yes 12.5 mg = Me moria 25 mg oral 3-29 0.5 tab, l tablet, 15:39: PO, Daily, Herm chandu extended 00 0 release Refill(s) POLYETHYLEN 2020-0 Yes PO, Daily, Memoria E GLYCOL 3-29 0 l 3350 15:39: Refill(s) Constantia 00 sennosides, 2020-0 Yes 8.6 mg = 1 [facility] 8.6 MG 3-29 tab, PO, l Oral Tablet 15:39: BID, 0 Herm chandu 00 Refill(s) meropenem 2020-0 Yes 500 mg, Memor ia 500 mg 3-29 IVPB, l intravenous 15:39: ABXQ8H, 0 H ermann injection 00 Refill(s) Levetiracet 2020-0 Yes 500 mg = 1 Memoria am 500 MG 3-29 tab, PO, l Oral Tablet 15:39: Q12H, 0 Her feng 00 Refill(s) apixaban 2020-0 Yes 2.5 mg = 1 Mem oria 2.5 mg oral 3-29 tab, PO, l tablet 15:39: Q12H, 0 Constantia 00 Refill(s) metoprolol 2019-0 Yes 12.5 mg = Me moria 25 mg oral 3-29 0.5 tab, l tablet, 15:39: PO, Daily, Herm chandu extended 00 0 release Refill(s) POLYETHYLEN 2020-0 Yes PO, Daily, Memoria E GLYCOL 3-29 0 l 3350 15:39: Refill(s) Syed 00 sennosides, 0 Yes 8.6 mg = 1 [facility] 8.6 MG 3-29 tab, PO, l Oral Tablet 15:39: BID, 0 Herm chandu Refill(s) metoprolol 2019-0 No Notes: Memor ia extended 3-28 (Same as: l release 19:34: Toprol XL) Herm chandu Do Not Crush 12.5 mg = 1/2 x 25 mg TAB metoprolol 2020-0 No Notes: Memor ia extended 3-28 (Same as: l release 19:34: Toprol XL) Herm chandu 00 Do Not Crush 12.5 mg = 1/2 x 25 mg TAB metoprolol 2020-0 No Notes: Memor ia extended 3-28 (Same as: l release 19:34: Toprol XL) Herm chandu 00 Do Not Crush 12.5 mg = 1/2 x 25 mg TAB metoprolol 2020-0 No Notes: Memor ia extended 3-28 (Same as: l release 19:34: Toprol XL) Herm chandu 00 Do Not Crush 12.5 mg = 1/2 x 25 mg TAB metoprolol 2020-0 No Notes: Memor ia extended 3-28 (Same as: l release 19:34: Toprol XL) Herm chandu 00 Do Not Crush 12.5 mg = 1/2 x 25 mg TAB metoprolol 2020-0 No Notes: Memor ia extended 3-28 (Same as: l release 19:34: Toprol XL) Herm chandu 00 Do Not Crush 12.5 mg = 1/2 x 25 mg TAB metoprolol 2020-0 No Notes: Memor ia extended 3-28 (Same as: l release 19:34: Toprol XL) Herm chandu 00 Do Not Crush 12.5 mg = 1/2 x 25 mg TAB metoprolol 2020-0 No Notes: Memor ia extended 3-28 (Same as: l release 19:34: Toprol XL) Herm chandu 00 Do Not Crush 12.5 mg = 1/2 x 25 mg TAB metoprolol 2020-0 No Notes: Memor ia extended 3-28 (Same as: l release 19:34: Toprol XL) Herm chandu 00 Do Not Crush 12.5 mg = 1/2 x 25 mg TAB metoprolol 2020-0 No Notes: Memor ia extended 3-28 (Same as: l release 19:34: Toprol XL) Herm chandu 00 Do Not Crush 12.5 mg = 1/2 x 25 mg TAB metoprolol 2020-0 No Notes: Memor ia extended 3-28 (Same as: l release 19:34: Toprol XL) Herm chandu 00 Do Not Crush 12.5 mg = 1/2 x 25 mg TAB metoprolol 2020-0 No Notes: Memor ia extended 3-28 (Same as: l release 19:34: Toprol XL) Herm chandu 00 Do Not Crush 12.5 mg = 1/2 x 25 mg TAB Artificial 2020-0 No Notes: Memor ia Tears 3-28 (Same as: l 14:00: Lacri-Lube Syed 00 , Puralube, Duratears Naturale, Artificial Tears, and Tears Again ) Artificial 2020-0 No Notes: Memor ia Tears 3-28 (Same as: l 14:00: Lacri-Lube Syed 00 , Puralube, Duratears Naturale, Artificial Tears, and Tears Again ) Artificial 2020-0 No Notes: Memor ia Tears 3-28 (Same as: l 14:00: Lacri-Lube Syed 00 , Puralube, Duratears Naturale, Artificial Tears, and Tears Again ) Artificial 2020-0 No Notes: Memor ia Tears 3-28 (Same as: l 14:00: Lacri-Lube Constantia 00 , Puralube, Duratears Naturale, Artificial Tears, and Tears Again ) Artificial 2020-0 No Notes: Memor ia Tears 3-28 (Same as: l 14:00: Lacri-Lube Constantia 00 , Puralube, Duratears Naturale, Artificial Tears, and Tears Again ) Artificial 2020-0 No Notes: Memor ia Tears 3-28 (Same as: l 14:00: Lacri-Lube Syed 00 , Puralube, Duratears Naturale, Artificial Tears, and Tears Again ) Artificial 2020-0 No Notes: Memor ia Tears 3-28 (Same as: l 14:00: Lacri-Lube Constantia 00 , Puralube, Duratears Naturale, Artificial Tears, and Tears Again ) Artificial 2020-0 No Notes: Memor ia Tears 3-28 (Same as: l 14:00: Lacri-Lube Constantia 00 , Puralube, Duratears Naturale, Artificial Tears, and Tears Again ) Artificial 2020-0 No Notes: Memor ia Tears 3-28 (Same as: l 14:00: Lacri-Lube Constantia 00 , Puralube, Duratears Naturale, Artificial Tears, and Tears Again ) Artificial 2020-0 No Notes: Memor ia Tears 3-28 (Same as: l 14:00: Lacri-Lube Constantia 00 , Puralube, Duratears Naturale, Artificial Tears, and Tears Again ) Artificial 2020-0 No Notes: Memor ia Tears 3-28 (Same as: l 14:00: Lacri-Lube Syed 00 , Puralube, Duratears Naturale, Artificial Tears, and Tears Again ) Artificial 2020-0 No Notes: Memor ia Tears 3-28 (Same as: l 14:00: Lacri-Lube Constantia 00 , Puralube, Duratears Naturale, Artificial Tears, and Tears Again ) Coreg 2019-0 No 3.125 mg, Memoria 3- Route: PO, l 02:00: Drug form: Syed 00 TAB, Q12H, Dosing Weight 57.182, kg, Start date: 02/05/20 21:00:00 CDT, Duration: 30 day, Stop date: 03/06/20 9:00:00 CDT Coreg 2019-0 No 3.125 mg, Memoria 3-28 Route: PO, l 02:00: Drug form: Constantia 00 TAB, Q12H, Dosing Weight 57.182, kg, Start date: 02/05/20 21:00:00 CDT, Duration: 30 day, Stop date: 03/06/20 9:00:00 CDT Coreg 2020-0 No 3.125 mg, Memoria 3-28 Route: PO, l 02:00: Drug form: Syed 00 TAB, Q12H, Dosing Weight 57.182, kg, Start date: 02/05/20 21:00:00 CDT, Duration: 30 day, Stop date: 03/06/20 9:00:00 CDT Coreg 2020-0 No 3.125 mg, Memoria 3-28 Route: PO, l 02:00: Drug form: Constantia 00 TAB, Q12H, Dosing Weight 57.182, kg, Start date: 02/05/20 21:00:00 CDT, Duration: 30 day, Stop date: 03/06/20 9:00:00 CDT Coreg 2020-0 No 3.125 mg, Memoria 3-28 Route: PO, l 02:00: Drug form: Syed 00 TAB, Q12H, Dosing Weight 57.182, kg, Start date: 02/05/20 21:00:00 CDT, Duration: 30 day, Stop date: 03/06/20 9:00:00 CDT Coreg 2020-0 No 3.125 mg, Memoria 3-28 Route: PO, l 02:00: Drug form: Constantia 00 TAB, Q12H, Dosing Weight 57.182, kg, Start date: 02/05/20 21:00:00 CDT, Duration: 30 day, Stop date: 03/06/20 9:00:00 CDT Coreg 2020-0 No 3.125 mg, Memoria 3-28 Route: PO, l 02:00: Drug form: Constantia 00 TAB, Q12H, Dosing Weight 57.182, kg, Start date: 02/05/20 21:00:00 CDT, Duration: 30 day, Stop date: 03/06/20 9:00:00 CDT Coreg 2020-0 No 3.125 mg, Memoria 3-28 Route: PO, l 02:00: Drug form: Constantia 00 TAB, Q12H, Dosing Weight 57.182, kg, Start date: 02/05/20 21:00:00 CDT, Duration: 30 day, Stop date: 03/06/20 9:00:00 CDT Coreg 2020-0 No 3.125 mg, Memoria 3-28 Route: PO, l 02:00: Drug form: Syed 00 TAB, Q12H, Dosing Weight 57.182, kg, Start date: 02/05/20 21:00:00 CDT, Duration: 30 day, Stop date: 03/06/20 9:00:00 CDT Coreg 2020-0 No 3.125 mg, Memoria 02-05 Route: PO, l 02:00: Drug form: Constantia 00 TAB, Q12H, Dosing Weight 57.182, kg, Start date: 02/05/20 21:00:00 CDT, Duration: 30 day, Stop date: 03/06/20 9:00:00 CDT Coreg 2020-0 No 3.125 mg, Memoria 02-05 Route: PO, l 02:00: Drug form: Constantia 00 TAB, Q12H, Dosing Weight 57.182, kg, Start date: 02/05/20 21:00:00 CDT, Duration: 30 day, Stop date: 03/06/20 9:00:00 CDT Coreg 2020-0 No 3.125 mg, Memoria 02-05 Route: PO, l 02:00: Drug form: Syed 00 TAB, Q12H, Dosing Weight 57.182, kg, Start date: 02/05/20 21:00:00 CDT, Duration: 30 day, Stop date: 03/06/20 9:00:00 CDT meropenem 2020-0 No Notes: Memori a 02-04 Same as l 22:00: Merrem Syed 00 MEDICATION WASTE Product Size: 500 mg Product Wasted: ___ mg meropenem 2020-0 No Notes: Memori a 02-04 Same as l 22:00: Merrem Syed 00 MEDICATION WASTE Product Size: 500 mg Product Wasted: ___ mg meropenem 2020-0 No Notes: Memori a 02-04 Same as l 22:00: Merrem Syed 00 MEDICATION WASTE Product Size: 500 mg Product Wasted: ___ mg meropenem 2020-0 No Notes: Memori a 02-04 Same as l 22:00: Merrem Syed 00 MEDICATION WASTE Product Size: 500 mg Product Wasted: ___ mg meropenem 2020-0 No Notes: Memori a 02-04 Same as l 22:00: Merrem Constantia MEDICATION WASTE Product Size: 500 mg Product Wasted: ___ mg meropenem 2020-0 No Notes: Memori a 02-04 Same as l 22:00: Merrem Syed MEDICATION WASTE Product Size: 500 mg Product Wasted: ___ mg meropenem 2020-0 No Notes: Memori a 02-04 Same as l 22:00: Merrem Syed MEDICATION WASTE Product Size: 500 mg Product Wasted: ___ mg meropenem 2020-0 No Notes: Memori a 02-04 Same as l 22:00: Merrem Syed MEDICATION WASTE Product Size: 500 mg Product Wasted: ___ mg meropenem 2020-0 No Notes: Memori a 02-04 Same as l 22:00: Merrem Syed MEDICATION WASTE Product Size: 500 mg Product Wasted: ___ mg meropenem 2020-0 No Notes: Memori a 02-04 Same as l 22:00: Merrem Syed MEDICATION WASTE Product Size: 500 mg Product Wasted: ___ mg meropenem 2020-0 No Notes: Memori a 02-04 Same as l 22:00: Merrem Syed MEDICATION WASTE Product Size: 500 mg Product Wasted: ___ mg meropenem 2020-0 No Notes: Memori a 02-04 Same as l 22:00: Merrem Syed MEDICATION WASTE Product Size: 500 mg Product Wasted: ___ mg apixaban 5 2020-0 No 5 mg, PO, Me moria MG Oral 3-27 Q12H, 0 l Tablet 17:06: Refill(s) Johnny n [Eliquis] 00 apixaban 5 2020-0 No 5 mg, PO, Me moria MG Oral 3-27 Q12H, 0 l Tablet 17:06: Refill(s) Johnny n [Eliquis] 00 apixaban 5 2020-0 No 5 mg, PO, Me moria MG Oral 3-27 Q12H, 0 l Tablet 17:06: Refill(s) Johnny n [Eliquis] 00 apixaban 5 2020-0 No 5 mg, PO, Me moria MG Oral 3-27 Q12H, 0 l Tablet 17:06: Refill(s) Johnny n [Eliquis] 00 apixaban 5 2020-0 No 5 mg, PO, Me moria MG Oral 3-27 Q12H, 0 l Tablet 17:06: Refill(s) Johnny n [Eliquis] 00 apixaban 5 2020-0 No 5 mg, PO, Me moria MG Oral 3-27 Q12H, 0 l Tablet 17:06: Refill(s) Johnny n [Eliquis] 00 apixaban 5 2020-0 No 5 mg, PO, Me moria MG Oral 3-27 Q12H, 0 l Tablet 17:06: Refill(s) Johnny n [Eliquis] 00 apixaban 5 2020-0 No 5 mg, PO, Me moria MG Oral 3-27 Q12H, 0 l Tablet 17:06: Refill(s) Johnny lares [Eliquis] 00 apixaban 5 2020-0 No 5 mg, PO, Me moria MG Oral 3-27 Q12H, 0 l Tablet 17:06: Refill(s) Johnny n [Eliquis] 00 apixaban 5 2020-0 No 5 mg, PO, Me moria MG Oral 3-27 Q12H, 0 l Tablet 17:06: Refill(s) Johnny n [Eliquis] 00 apixaban 5 2020-0 No 5 mg, PO, Me moria MG Oral 3-27 Q12H, 0 l Tablet 17:06: Refill(s) Johnny lares [Eliquis] 00 apixaban 5 2020-0 No 5 mg, PO, Me moria MG Oral 3-27 Q12H, 0 l Tablet 17:06: Refill(s) Johnny lares [Eliquis] 00 levothyroxi 2020-0 Yes 75 Memori a ne 75 mcg 3-27 microgram l (0.075 mg) 17:00: = 1 tab, Her feng oral tablet 00 PO, Daily, 0 Refill(s) Furosemide 2020-0 Yes 40 mg = 1 Me moria 40 MG Oral 3-27 tab, PO, l Tablet 17:00: Daily, 0 Constantia 00 Refill(s) clonazePAM 2020-0 Yes 1 mg = 1 Mem oria 1 mg oral 3-27 tab, PO, l tablet 17:00: TID, 0 Constantia 00 Refill(s) levothyroxi 2020-0 Yes 75 Memori a ne 75 mcg 3-27 microgram l (0.075 mg) 17:00: = 1 tab, Her feng oral tablet 00 PO, Daily, 0 Refill(s) Furosemide 2020-0 Yes 40 mg = 1 Me moria 40 MG Oral 3-27 tab, PO, l Tablet 17:00: Daily, 0 Constantia 00 Refill(s) clonazePAM 2020-0 Yes 1 mg = 1 Mem oria 1 mg oral 3-27 tab, PO, l tablet 17:00: TID, 0 Constantia 00 Refill(s) levothyroxi 2020-0 Yes 75 Memori a ne 75 mcg 3-27 microgram l (0.075 mg) 17:00: = 1 tab, Her feng oral tablet 00 PO, Daily, 0 Refill(s) Furosemide 2020-0 Yes 40 mg = 1 Me moria 40 MG Oral 3-27 tab, PO, l Tablet 17:00: Daily, 0 Syed 00 Refill(s) clonazePAM 2020-0 Yes 1 mg = 1 Mem oria 1 mg oral 3-27 tab, PO, l tablet 17:00: TID, 0 Constantia 00 Refill(s) levothyroxi 2020-0 Yes 75 Memori a ne 75 mcg 3-27 microgram l (0.075 mg) 17:00: = 1 tab, Her feng oral tablet 00 PO, Daily, 0 Refill(s) Furosemide 2020-0 Yes 40 mg = 1 Me moria 40 MG Oral 3-27 tab, PO, l Tablet 17:00: Daily, 0 Constantia 00 Refill(s) clonazePAM 2020-0 Yes 1 mg = 1 Mem oria 1 mg oral 3-27 tab, PO, l tablet 17:00: TID, 0 Syed 00 Refill(s) levothyroxi 2020-0 Yes 75 Memori a ne 75 mcg 3-27 microgram l (0.075 mg) 17:00: = 1 tab, Her feng oral tablet 00 PO, Daily, 0 Refill(s) Furosemide 2020-0 Yes 40 mg = 1 Me moria 40 MG Oral 3-27 tab, PO, l Tablet 17:00: Daily, 0 Syed 00 Refill(s) clonazePAM 2020-0 Yes 1 mg = 1 Mem oria 1 mg oral 3-27 tab, PO, l tablet 17:00: TID, 0 Syed 00 Refill(s) levothyroxi 2020-0 Yes 75 Memori a ne 75 mcg 3-27 microgram l (0.075 mg) 17:00: = 1 tab, Her feng oral tablet 00 PO, Daily, 0 Refill(s) Furosemide 2020-0 Yes 40 mg = 1 Me moria 40 MG Oral 3-27 tab, PO, l Tablet 17:00: Daily, 0 Syed 00 Refill(s) clonazePAM 2020-0 Yes 1 mg = 1 Mem oria 1 mg oral 3-27 tab, PO, l tablet 17:00: TID, 0 Syed 00 Refill(s) levothyroxi 2020-0 Yes 75 Memori a ne 75 mcg 3-27 microgram l (0.075 mg) 17:00: = 1 tab, Her feng oral tablet 00 PO, Daily, 0 Refill(s) Furosemide 2020-0 Yes 40 mg = 1 Me moria 40 MG Oral 3-27 tab, PO, l Tablet 17:00: Daily, 0 Constantia 00 Refill(s) clonazePAM 2020-0 Yes 1 mg = 1 Mem oria 1 mg oral 3-27 tab, PO, l tablet 17:00: TID, 0 Constantia 00 Refill(s) levothyroxi 2020-0 Yes 75 Memori a ne 75 mcg 3-27 microgram l (0.075 mg) 17:00: = 1 tab, Her feng oral tablet 00 PO, Daily, 0 Refill(s) Furosemide 2020-0 Yes 40 mg = 1 Me moria 40 MG Oral 3-27 tab, PO, l Tablet 17:00: Daily, 0 Syed 00 Refill(s) clonazePAM 2020-0 Yes 1 mg = 1 Mem oria 1 mg oral 3-27 tab, PO, l tablet 17:00: TID, 0 Syed 00 Refill(s) levothyroxi 2020-0 Yes 75 Memori a ne 75 mcg 3-27 microgram l (0.075 mg) 17:00: = 1 tab, Her feng oral tablet 00 PO, Daily, 0 Refill(s) Furosemide 2020-0 Yes 40 mg = 1 Me moria 40 MG Oral 3-27 tab, PO, l Tablet 17:00: Daily, 0 Syed 00 Refill(s) clonazePAM 2020-0 Yes 1 mg = 1 Mem oria 1 mg oral 3-27 tab, PO, l tablet 17:00: TID, 0 Constantia 00 Refill(s) levothyroxi 2020-0 Yes 75 Memori a ne 75 mcg 3-27 microgram l (0.075 mg) 17:00: = 1 tab, Her feng oral tablet 00 PO, Daily, 0 Refill(s) Furosemide 2020-0 Yes 40 mg = 1 Me moria 40 MG Oral 3-27 tab, PO, l Tablet 17:00: Daily, 0 Syed 00 Refill(s) clonazePAM 2020-0 Yes 1 mg = 1 Mem oria 1 mg oral 3-27 tab, PO, l tablet 17:00: TID, 0 Constantia 00 Refill(s) levothyroxi 2020-0 Yes 75 Memori a ne 75 mcg 3-27 microgram l (0.075 mg) 17:00: = 1 tab, Her feng oral tablet 00 PO, Daily, 0 Refill(s) Furosemide 2020-0 Yes 40 mg = 1 Me moria 40 MG Oral 3-27 tab, PO, l Tablet 17:00: Daily, 0 Syed 00 Refill(s) clonazePAM 2020-0 Yes 1 mg = 1 Mem oria 1 mg oral 3-27 tab, PO, l tablet 17:00: TID, 0 Constantia 00 Refill(s) levothyroxi 2020-0 Yes 75 Memori a ne 75 mcg 3-27 microgram l (0.075 mg) 17:00: = 1 tab, Her feng oral tablet 00 PO, Daily, 0 Refill(s) Furosemide 2020-0 Yes 40 mg = 1 Me moria 40 MG Oral 3-27 tab, PO, l Tablet 17:00: Daily, 0 Constantia 00 Refill(s) clonazePAM 2020-0 Yes 1 mg = 1 Mem oria 1 mg oral 3-27 tab, PO, l tablet 17:00: TID, 0 Syed 00 Refill(s) Eliquis 2020-0 No Notes: Memoria 3-27 Same as: l 14:00: Eliquis Syed 00 sennosides, No Notes: Ervin marybel CARE HOME 3-27 (Same as: l 14:00: Senokot) Syed 00 Miralax No Notes: Memoria 3-27 Dissolve l 14:00: in 8 oz of Syed 00 water or juice. (Same as: Miralax) meropenem No Notes: Memori a 3-27 (Same as: l 14:00: Merrem) . MEDICATION WASTE Product Size: 1000 mg Product Wasted: ___ mg 24 HR No Notes: Memoria Divalproex 3-27 Hazardous l Sodium 500 14:00: Drug Group H ermann MG Extended 00 2:Non-anti Release neoplastic Tablet Hazardous [Depakote] Drug -- Refer to safe handling procedure PPE Matrix (Same as: Depakote ER) Once daily dosing; indicated for migraines. Divalproex sodium extended-r elease tab. Do not chew or crush. Levetiracet No Notes: Ervni marybel am 1000 MG 3-27 Same as: l Oral Tablet 14:00: Keppra Eliquis No Notes: Memoria 3-27 Same as: l 14:00: Eliquis Constantia 00 sennosides, No Notes: Ervin marybel CARE HOME 3-27 (Same as: l 14:00: Senokot) Miralax No Notes: Memoria 3-27 Dissolve l 14:00: in 8 oz of Constantia 00 water or juice. (Same as: Miralax) meropenem No Notes: Memori a 3-27 (Same as: l 14:00: Merrem) . MEDICATION WASTE Product Size: 1000 mg Product Wasted: ___ mg 24 HR No Notes: Memoria Divalproex 3-27 Hazardous l Sodium 500 14:00: Drug Group H ermann MG Extended 00 2:Non-anti Release neoplastic Tablet Hazardous [Depakote] Drug -- Refer to safe handling procedure PPE Matrix (Same as: Depakote ER) Once daily dosing; indicated for migraines. Divalproex sodium extended-r elease tab. Do not chew or crush. Levetiracet No Notes: Ervin marybel am 1000 MG 3-27 Same as: l Oral Tablet 14:00: Keppra Herm chandu Eliquis No Notes: Memoria 3-27 Same as: l 14:00: Eliquis Syed sennosides, No Notes: Ervin marybel CARE HOME 3-27 (Same as: l 14:00: Senokot) Syed 00 Miralax No Notes: Memoria 3-27 Dissolve l 14:00: in 8 oz of Constantia 00 water or juice. (Same as: Miralax) meropenem No Notes: Memori a 3-27 (Same as: l 14:00: Merrem) . MEDICATION WASTE Product Size: 1000 mg Product Wasted: ___ mg 24 HR No Notes: Memoria Divalproex 3-27 Hazardous l Sodium 500 14:00: Drug Group H ermann MG Extended 00 2:Non-anti Release neoplastic Tablet Hazardous [Depakote] Drug -- Refer to safe handling procedure PPE Matrix (Same as: Depakote ER) Once daily dosing; indicated for migraines. Divalproex sodium extended-r elease tab. Do not chew or crush. Levetiracet No Notes: Ervin marybel am 1000 MG 3-27 Same as: l Oral Tablet 14:00: Keppra Herm chandu Eliquis No Notes: Memoria 3-27 Same as: l 14:00: Eliquis Syed sennosides, No Notes: Ervin marybel CARE HOME 3-27 (Same as: l 14:00: Senokot) Miralax No Notes: Memoria 3-27 Dissolve l 14:00: in 8 oz of Constantia 00 water or juice. (Same as: Miralax) meropenem No Notes: Memori a 3-27 (Same as: l 14:00: Merrem) . MEDICATION WASTE Product Size: 1000 mg Product Wasted: ___ mg 24 HR No Notes: Memoria Divalproex 3-27 Hazardous l Sodium 500 14:00: Drug Group H ermann MG Extended 00 2:Non-anti Release neoplastic Tablet Hazardous [Depakote] Drug -- Refer to safe handling procedure PPE Matrix (Same as: Depakote ER) Once daily dosing; indicated for migraines. Divalproex sodium extended-r elease tab. Do not chew or crush. Levetiracet No Notes: Ervin marybel am 1000 MG 3 Same as: l Oral Tablet 14:00: Keppra Herm chandu Eliquis No Notes: Memoria 3-27 Same as: l 14:00: Eliquis [place] sennosides, No Notes: Ervin marybel CARE HOME 3-27 (Same as: l 14:00: Senokot) Constantia Miralax No Notes: Memoria 3-27 Dissolve l 14:00: in 8 oz of Syed 00 water or juice. (Same as: Miralax) meropenem No Notes: Memori a 3-27 (Same as: l 14:00: Merrem) . Syed 00 MEDICATION WASTE Product Size: 1000 mg Product Wasted: ___ mg 24 HR No Notes: Memoria Divalproex 3-27 Hazardous l Sodium 500 14:00: Drug Group H ermann MG Extended 00 2:Non-anti Release neoplastic Tablet Hazardous [Depakote] Drug -- Refer to safe handling procedure PPE Matrix (Same as: Depakote ER) Once daily dosing; indicated for migraines. Divalproex sodium extended-r elease tab. Do not chew or crush. Levetiracet No Notes: Ervin marybel am 1000 MG 3- Same as: l Oral Tablet 14:00: Keppra Herm chandu Eliquis No Notes: Memoria 3-27 Same as: l 14:00: Eliquis Syed sennosides, No Notes: Ervin marybel CARE HOME 3-27 (Same as: l 14:00: Senokot) Constantia Miralax No Notes: Memoria 3-27 Dissolve l 14:00: in 8 oz of Syed 00 water or juice. (Same as: Miralax) meropenem No Notes: Memori a 3-27 (Same as: l 14:00: Merrem) . MEDICATION WASTE Product Size: 1000 mg Product Wasted: ___ mg 24 HR No Notes: Memoria Divalproex 3-27 Hazardous l Sodium 500 14:00: Drug Group H ermann MG Extended 00 2:Non-anti Release neoplastic Tablet Hazardous [Depakote] Drug -- Refer to safe handling procedure PPE Matrix (Same as: Depakote ER) Once daily dosing; indicated for migraines. Divalproex sodium extended-r elease tab. Do not chew or crush. Levetiracet No Notes: Ervin marybel am 1000 MG 3-27 Same as: l Oral Tablet 14:00: Keppra Herm chandu Eliquis No Notes: Memoria 3-27 Same as: l 14:00: Eliquis Syed 00 sennosides, No Notes: Ervin marybel CARE HOME 3-27 (Same as: l 14:00: Senokot) Miralax No Notes: Memoria 3-27 Dissolve l 14:00: in 8 oz of water or juice. (Same as: Miralax) meropenem No Notes: Memori a 3-27 (Same as: l 14:00: Merrem) . MEDICATION WASTE Product Size: 1000 mg Product Wasted: ___ mg 24 HR No Notes: Memoria Divalproex 3-27 Hazardous l Sodium 500 14:00: Drug Group H ermann MG Extended 00 2:Non-anti Release neoplastic Tablet Hazardous [Depakote] Drug -- Refer to safe handling procedure PPE Matrix (Same as: Depakote ER) Once daily dosing; indicated for migraines. Divalproex sodium extended-r elease tab. Do not chew or crush. Levetiracet No Notes: Ervin marybel am 1000 MG 3-27 Same as: l Oral Tablet 14:00: Keppra Herm chandu Eliquis No Notes: Memoria 3-27 Same as: l 14:00: Eliquis Constant[place] sennosides, No Notes: Ervin marybel CARE HOME 3-27 (Same as: l 14:00: Senokot) Miralax No Notes: Memoria 3-27 Dissolve l 14:00: in 8 oz of Constantia 00 water or juice. (Same as: Miralax) meropenem No Notes: Memori a 3-27 (Same as: l 14:00: Merrem) . MEDICATION WASTE Product Size: 1000 mg Product Wasted: ___ mg 24 HR No Notes: Memoria Divalproex 3-27 Hazardous l Sodium 500 14:00: Drug Group H ermann MG Extended 00 2:Non-anti Release neoplastic Tablet Hazardous [Depakote] Drug -- Refer to safe handling procedure PPE Matrix (Same as: Depakote ER) Once daily dosing; indicated for migraines. Divalproex sodium extended-r elease tab. Do not chew or crush. Levetiracet No Notes: Ervin marybel am 1000 MG 3-27 Same as: l Oral Tablet 14:00: Keppra Eliquis No Notes: Memoria 3-27 Same as: l 14:00: Eliquis sennosides, No Notes: Ervin marybel CARE HOME 3-27 (Same as: l 14:00: Senokot) Miralax No Notes: Memoria 3-27 Dissolve l 14:00: in 8 oz of Constantia 00 water or juice. (Same as: Miralax) meropenem No Notes: Memori a 3-27 (Same as: l 14:00: Merrem) . MEDICATION WASTE Product Size: 1000 mg Product Wasted: ___ mg 24 HR No Notes: Memoria Divalproex 3-27 Hazardous l Sodium 500 14:00: Drug Group H ermann MG Extended 00 2:Non-anti Release neoplastic Tablet Hazardous [Depakote] Drug -- Refer to safe handling procedure PPE Matrix (Same as: Depakote ER) Once daily dosing; indicated for migraines. Divalproex sodium extended-r elease tab. Do not chew or crush. Levetiracet No Notes: Ervin marybel am 1000 MG 3-27 Same as: l Oral Tablet 14:00: Keppra Herm chandu Eliquis No Notes: Memoria 3-27 Same as: l 14:00: Eliquis Constantia 00 sennosides, No Notes: Ervin marybel CARE HOME 3-27 (Same as: l 14:00: Senokot) Miralax No Notes: Memoria 3-27 Dissolve l 14:00: in 8 oz of Constantia 00 water or juice. (Same as: Miralax) meropenem No Notes: Memori a 3-27 (Same as: l 14:00: Merrem) . MEDICATION WASTE Product Size: 1000 mg Product Wasted: ___ mg 24 HR No Notes: Memoria Divalproex 3-27 Hazardous l Sodium 500 14:00: Drug Group H ermann MG Extended 00 2:Non-anti Release neoplastic Tablet Hazardous [Depakote] Drug -- Refer to safe handling procedure PPE Matrix (Same as: Depakote ER) Once daily dosing; indicated for migraines. Divalproex sodium extended-r elease tab. Do not chew or crush. Levetiracet No Notes: Ervin marybel am 1000 MG 3-27 Same as: l Oral Tablet 14:00: Keppra Herm chandu Eliquis No Notes: Memoria 3-27 Same as: l 14:00: Eliquis Syed 00 sennosides, No Notes: Ervin marybel CARE HOME 3-27 (Same as: l 14:00: Senokot) Miralax No Notes: Memoria 3-27 Dissolve l 14:00: in 8 oz of Constantia 00 water or juice. (Same as: Miralax) meropenem No Notes: Memori a 3-27 (Same as: l 14:00: Merrem) . MEDICATION WASTE Product Size: 1000 mg Product Wasted: ___ mg 24 HR No Notes: Memoria Divalproex 3-27 Hazardous l Sodium 500 14:00: Drug Group H ermann MG Extended 00 2:Non-anti Release neoplastic Tablet Hazardous [Depakote] Drug -- Refer to safe handling procedure PPE Matrix (Same as: Depakote ER) Once daily dosing; indicated for migraines. Divalproex sodium extended-r elease tab. Do not chew or crush. Levetiracet No Notes: Ervin marybel am 1000 MG 3-27 Same as: l Oral Tablet 14:00: Keppra Herm Eliquis No Notes: Memoria 3-27 Same as: l 14:00: Eliquis Syed 00 sennosides, No Notes: Ervin marybel CARE HOME 3-27 (Same as: l 14:00: Senokot) Miralax No Notes: Memoria 3-27 Dissolve l 14:00: in 8 oz of water or juice. (Same as: Miralax) meropenem No Notes: Memori a 3-27 (Same as: l 14:00: Merrem) . MEDICATION WASTE Product Size: 1000 mg Product Wasted: ___ mg 24 HR No Notes: Memoria Divalproex 3-27 Hazardous l Sodium 500 14:00: Drug Group H ermann MG Extended 2:Non-anti Release neoplastic Tablet Hazardous [Depakote] Drug -- Refer to safe handling procedure PPE Matrix (Same as: Depakote ER) Once daily dosing; indicated for migraines. Divalproex sodium extended-r elease tab. Do not chew or crush. Levetiracet No Notes: Ervin marybel am 1000 MG 3-27 Same as: l Oral Tablet 14:00: Keppra Herm chandu Potassium No Notes: Memori a Chloride 3-27 (Same as: l 1.33 MEQ/ML 13:16: Potassium H ermann Oral 00 Chloride) Solution Potassium No Notes: Memori a Chloride 3-27 (Same as: l 1.33 MEQ/ML 13:16: Potassium H ermann Oral 00 Chloride) Solution Potassium No Notes: Memori a Chloride 3-27 (Same as: l 1.33 MEQ/ML 13:16: Potassium H ermann Oral 00 Chloride) Solution Potassium No Notes: Memori a Chloride 3-27 (Same as: l 1.33 MEQ/ML 13:16: Potassium H ermann Oral 00 Chloride) Solution Potassium 2020-0 No Notes: Memori a Chloride 3-27 (Same as: l 1.33 MEQ/ML 13:16: Potassium H ermann Oral 00 Chloride) Solution Potassium 2020-0 No Notes: Memori a Chloride 3-27 (Same as: l 1.33 MEQ/ML 13:16: Potassium H ermann Oral 00 Chloride) Solution Potassium 2020-0 No Notes: Memori a Chloride 3-27 (Same as: l 1.33 MEQ/ML 13:16: Potassium H ermann Oral 00 Chloride) Solution Potassium 2020-0 No Notes: Memori a Chloride 3-27 (Same as: l 1.33 MEQ/ML 13:16: Potassium H ermann Oral 00 Chloride) Solution Potassium 2020-0 No Notes: Memori a Chloride 3-27 (Same as: l 1.33 MEQ/ML 13:16: Potassium H ermann Oral 00 Chloride) Solution Potassium 2020-0 No Notes: Memori a Chloride 3-27 (Same as: l 1.33 MEQ/ML 13:16: Potassium H ermann Oral 00 Chloride) Solution Potassium 2020-0 No Notes: Memori a Chloride 3-27 (Same as: l 1.33 MEQ/ML 13:16: Potassium H ermann Oral 00 Chloride) Solution Potassium 2020-0 No Notes: Memori a Chloride 3-27 (Same as: l 1.33 MEQ/ML 13:16: Potassium H ermann Oral 00 Chloride) Solution tiotropium 2020-0 No 18 Memoria 3-27 microgram, l 13:00: Route: Syed 00 INHALATION , Drug form: CAP, RDaily, Dosing Weight 57.182, kg, Start date: 02/05/20 8:00:00 CDT, Duration: 30 day, Stop date: 03/05/20 8:00:00 CDT tiotropium 2020-0 No 18 Memoria 3-27 microgram, l 13:00: Route: Syed 00 INHALATION , Drug form: CAP, RDaily, Dosing Weight 57.182, kg, Start date: 02/05/20 8:00:00 CDT, Duration: 30 day, Stop date: 03/05/20 8:00:00 CDT tiotropium 2020-0 No 18 Memoria 3-27 microgram, l 13:00: Route: Constantia 00 INHALATION , Drug form: CAP RDaily, Dosing Weight 57.182, kg, Start date: 02/05/20 8:00:00 CDT, Duration: 30 day, Stop date: 03/05/20 8:00:00 CDT tiotropium 2020-0 No 18 Memoria 3-27 microgram, l 13:00: Route: Constantia 00 INHALATION , Drug form: CAPHUDSONaily, Dosing Weight 57.182, kg, Start date: 02/05/20 8:00:00 CDT, Duration: 30 day, Stop date: 03/05/20 8:00:00 CDT tiotropium 2020-0 No 18 Memoria 3-27 microgram, l 13:00: Route: Constantia 00 INHALATION , Drug form: CAP, HUDSONaily, Dosing Weight 57.182, kg, Start date: 02/05/20 8:00:00 CDT, Duration: 30 day, Stop date: 03/05/20 8:00:00 CDT tiotropium 2020-0 No 18 Memoria 3-27 microgram, l 13:00: Route: Constantia 00 INHALATION , Drug form: CAP, HUDSONaily, Dosing Weight 57.182, kg, Start date: 02/05/20 8:00:00 CDT, Duration: 30 day, Stop date: 03/05/20 8:00:00 CDT tiotropium 2020-0 No 18 Memoria 3-27 microgram, l 13:00: Route: Constantia 00 INHALATION , Drug form: CAP, RDaily, Dosing Weight 57.182, kg, Start date: 02/05/20 8:00:00 CDT, Duration: 30 day, Stop date: 03/05/20 8:00:00 CDT tiotropium 2020-0 No 18 Memoria 3-27 microgram, l 13:00: Route: Syed 00 INHALATION , Drug form: CAP, RDaily, Dosing Weight 57.182, kg, Start date: 02/05/20 8:00:00 CDT, Duration: 30 day, Stop date: 03/05/20 8:00:00 CDT tiotropium 2020-0 No 18 Memoria 3-27 microgram, l 13:00: Route: Syed 00 INHALATION , Drug form: CAP, RDaily, Dosing Weight 57.182, kg, Start date: 02/05/20 8:00:00 CDT, Duration: 30 day, Stop date: 03/05/20 8:00:00 CDT tiotropium 2020-0 No 18 Memoria 3-27 microgram, l 13:00: Route: Syed 00 INHALATION , Drug form: CAP, RDaily, Dosing Weight 57.182, kg, Start date: 02/05/20 8:00:00 CDT, Duration: 30 day, Stop date: 03/05/20 8:00:00 CDT tiotropium 2020-0 No 18 Memoria 3-27 microgram, l 13:00: Route: Syed 00 INHALATION , Drug form: CAP, RDaily, Dosing Weight 57.182, kg, Start date: 02/05/20 8:00:00 CDT, Duration: 30 day, Stop date: 03/05/20 8:00:00 CDT tiotropium 2020-0 No 18 Memoria 3-27 microgram, l 13:00: Route: Constantia 00 INHALATION , Drug form: CAP, RDaily, Dosing Weight 57.182, kg, Start date: 02/05/20 8:00:00 CDT, Duration: 30 day, Stop date: 03/05/20 8:00:00 CDT ipratropium 2020-0 No Notes: SEE Memoria 0.02% 3-27 RT l inhalation 12:00: DOCUMENTAT H ermann solution 00 ION (Same as:Atroven t) ipratropium 2020-0 No Notes: SEE Memoria 0.02% 3-27 RT l inhalation 12:00: DOCUMENTAT H ermann solution 00 ION (Same as:Atroven t) ipratropium 2020-0 No Notes: SEE Memoria 0.02% 3-27 RT l inhalation 12:00: DOCUMENTAT H ermann solution 00 ION (Same as:Atroven t) ipratropium 2020-0 No Notes: SEE Memoria 0.02% 3-27 RT l inhalation 12:00: DOCUMENTAT H ermann solution 00 ION (Same as:Atroven t) ipratropium 2020-0 No Notes: SEE Memoria 0.02% 3-27 RT l inhalation 12:00: DOCUMENTAT H ermann solution 00 ION (Same as:Atroven t) ipratropium 2020-0 No Notes: SEE Memoria 0.02% 3-27 RT l inhalation 12:00: DOCUMENTAT H ermann solution 00 ION (Same as:Atroven t) ipratropium 2020-0 No Notes: SEE Memoria 0.02% 3-27 RT l inhalation 12:00: DOCUMENTAT H ermann solution 00 ION (Same as:Atroven t) ipratropium 2020-0 No Notes: SEE Memoria 0.02% 3-27 RT l inhalation 12:00: DOCUMENTAT H ermann solution 00 ION (Same as:Atroven t) ipratropium 2020-0 No Notes: SEE Memoria 0.02% 3-27 RT l inhalation 12:00: DOCUMENTAT H ermann solution 00 ION (Same as:Atroven t) ipratropium 2020-0 No Notes: SEE Memoria 0.02% 3-27 RT l inhalation 12:00: DOCUMENTAT H ermann solution 00 ION (Same as:Atroven t) ipratropium 2020-0 No Notes: SEE Memoria 0.02% 3-27 RT l inhalation 12:00: DOCUMENTAT H ermann solution 00 ION (Same as:Atroven t) ipratropium 2020-0 No Notes: SEE Memoria 0.02% 3-27 RT l inhalation 12:00: DOCUMENTAT H ermann solution 00 ION (Same as:Atroven t) Thyroxine 2020-0 No Notes: Memori a 3-27 Take 1 l 11:30: hour Syed 00 before or 2 hours after meal; Enteral feeds may interefere with the absorption of this medication . (Same as:Synthro id, Levothroid ) Thyroxine 0 No Notes: Memori a 3-27 Take 1 l 11:30: hour Constantia 00 before or 2 hours after meal; Enteral feeds may interefere with the absorption of this medication . (Same as:Synthro id, Levothroid ) Thyroxine 2019-0 No Notes: Memori a 3-27 Take 1 l 11:30: hour Syed 00 before or 2 hours after meal; Enteral feeds may interefere with the absorption of this medication . (Same as:Synthro id, Levothroid ) Thyroxine 2019- No Notes: Memori a 3-27 Take 1 l 11:30: hour Constantia 00 before or 2 hours after meal; Enteral feeds may interefere with the absorption of this medication . (Same as:Synthro id, Levothroid ) Thyroxine No Notes: Memori a 3-27 Take 1 l 11:30: hour Syed 00 before or 2 hours after meal; Enteral feeds may interefere with the absorption of this medication . (Same as:Synthro id, Levothroid ) Thyroxine No Notes: Memori a 3-27 Take 1 l 11:30: hour Syed 00 before or 2 hours after meal; Enteral feeds may interefere with the absorption of this medication . (Same as:Synthro id, Levothroid ) Thyroxine No Notes: Memori a 3-27 Take 1 l 11:30: hour Syed 00 before or 2 hours after meal; Enteral feeds may interefere with the absorption of this medication . (Same as:Synthro id, Levothroid ) Thyroxine No Notes: Memori a 3-27 Take 1 l 11:30: hour Syed 00 before or 2 hours after meal; Enteral feeds may interefere with the absorption of this medication . (Same as:Synthro id, Levothroid ) Thyroxine No Notes: Memori a 3-27 Take 1 l 11:30: hour Constantia 00 before or 2 hours after meal; Enteral feeds may interefere with the absorption of this medication . (Same as:Synthro id, Levothroid ) Thyroxine No Notes: Memori a 3-27 Take 1 l 11:30: hour Syed 00 before or 2 hours after meal; Enteral feeds may interefere with the absorption of this medication . (Same as:Synthro id, Levothroid ) Thyroxine No Notes: Memori a 3-27 Take 1 l 11:30: hour Syed 00 before or 2 hours after meal; Enteral feeds may interefere with the absorption of this medication . (Same as:Synthro id, Levothroid ) Thyroxine No Notes: Memori a 3-27 Take 1 l 11:30: hour Constantia 00 before or 2 hours after meal; Enteral feeds may interefere with the absorption of this medication . (Same as:Synthro id, Levothroid ) Acetaminoph No Notes: Do M emoria en 02-04 not exceed l 06:55: 4 gm/day. (Same as: Tylenol) Acetaminoph No Notes: Do M emoria en 02-04 not exceed l 06:55: 4 gm/day. (Same as: Tylenol) Acetaminoph No Notes: Do M emoria en 02-04 not exceed l 06:55: 4 gm/day. (Same as: Tylenol) Acetaminoph No Notes: Do M emoria en 02-04 not exceed l 06:55: 4 gm/day. (Same as: Tylenol) Acetaminoph No Notes: Do M emoria en 02-04 not exceed l 06:55: 4 gm/day. (Same as: Tylenol) Acetaminoph No Notes: Do M emoria en 02-04 not exceed l 06:55: 4 gm/day. (Same as: Tylenol) Acetaminoph No Notes: Do M emoria en 02-04 not exceed l 06:55: 4 gm/day. (Same as: Tylenol) Acetaminoph No Notes: Do M emoria en 02-04 not exceed l 06:55: 4 gm/day. (Same as: Tylenol) Acetaminoph No Notes: Do M emoria en 02-04 not exceed l 06:55: 4 gm/day. (Same as: Tylenol) Acetaminoph No Notes: Do M emoria en 02-04 not exceed l 06:55: 4 gm/day. (Same as: Tylenol) Acetaminoph No Notes: Do M emoria en 02-04 not exceed l 06:55: 4 gm/day. (Same as: Tylenol) Acetaminoph No Notes: Do M emoria en 02-04 not exceed l 06:55: 4 gm/day. (Same as: Tylenol) Clonazepam No Notes: Memor ia 02-04 (Same As: l 06:54: KlonoPIN) [facility] 3:Reproduc tive risk Hazardous Drug -- Refer to safe handling procedure PPE Matrix Hydroxyzine 2020-0 Yes 25 mg = 1 M emoria Hydrochlori 3-27 cap, PO, l de 25 MG 06:54: Bedtime Johnny n Oral 00 Capsule Clonazepam 2020-0 No Notes: Memor ia 3-27 (Same As: l 06:54: KlonoPIN) Hazardous Drug Group 3:Reproduc tive risk Hazardous Drug -- Refer to safe handling procedure PPE [facility] Hydroxyzine 2020-0 Yes 25 mg = 1 M emoria Hydrochlori 3-27 cap, PO, l de 25 MG 06:54: Bedtime Johnny n Oral 00 Capsule Clonazepam 2020-0 No Notes: Memor ia 3-27 (Same As: l 06:54: KlonoPIN) [facility] 3:Reproduc tive risk Hazardous Drug -- Refer to safe handling procedure PPE Matrix Hydroxyzine 2020-0 Yes 25 mg = 1 M emoria Hydrochlori 3-27 cap, PO, l de 25 MG 06:54: Bedtime Johnny n Oral 00 Capsule Clonazepam 2020-0 No Notes: Memor ia 3-27 (Same As: l 06:54: KlonoPIN) [facility] 3:Reproduc tive risk Hazardous Drug -- Refer to safe handling procedure PPE Matrix Hydroxyzine 2020-0 Yes 25 mg = 1 M emoria Hydrochlori 3-27 cap, PO, l de 25 MG 06:54: Bedtime Johnny n Oral 00 Capsule Clonazepam 2020-0 No Notes: Memor ia 3-27 (Same As: l 06:54: KlonoPIN) [facility] 3:Reproduc tive risk Hazardous Drug -- Refer to safe handling procedure PPE Matrix Hydroxyzine 2020-0 Yes 25 mg = 1 M emoria Hydrochlori 3-27 cap, PO, l de 25 MG 06:54: Bedtime Johnny n Oral 00 Capsule Clonazepam 2020-0 No Notes: Memor ia 3-27 (Same As: l 06:54: KlonoPIN) [facility] 3:Reproduc tive risk Hazardous Drug -- Refer to safe handling procedure PPE Matrix Hydroxyzine 2020-0 Yes 25 mg = 1 M emoria Hydrochlori 3-27 cap, PO, l de 25 MG 06:54: Bedtime Johnny n Oral 00 Capsule Clonazepam 2020-0 No Notes: Memor ia 3-27 (Same As: l 06:54: KlonoPIN) [facility] 3:Reproduc tive risk Haz[facility] Drug -- Refer to safe handling procedure PPE Matrix Hydroxyzine 2020-0 Yes 25 mg = 1 M emoria Hydrochlori 3-27 cap, PO, l de 25 MG 06:54: Bedtime Johnny n Oral 00 Capsule Clonazepam 2020-0 No Notes: Memor ia 3-27 (Same As: l 06:54: KlonoPIN) [facility] 3:Reproduc tive risk Hazardous Drug -- Refer to safe handling procedure PPE Matrix Hydroxyzine 2020-0 Yes 25 mg = 1 M emoria Hydrochlori 3-27 cap, PO, l de 25 MG 06:54: Bedtime Johnny n Oral 00 Capsule Clonazepam 2020-0 No Notes: Memor ia 3-27 (Same As: l 06:54: KlonoPIN) [facility] 3:Reproduc tive risk Haz[facility] Drug -- Refer to safe handling procedure PPE Matrix Hydroxyzine 2020-0 Yes 25 mg = 1 M emoria Hydrochlori 3-27 cap, PO, l de 25 MG 06:54: Bedtime Johnny n Oral 00 Capsule Clonazepam 2020-0 No Notes: Memor ia 3-27 (Same As: l 06:54: KlonoPIN) [facility] 3:Reproduc tive risk [facility] Drug -- Refer to safe handling procedure PPE Matrix Hydroxyzine 2020-0 Yes 25 mg = 1 M emoria Hydrochlori 3-27 cap, PO, l de 25 MG 06:54: Bedtime Johnny n Oral 00 Capsule Clonazepam 2020-0 No Notes: Memor ia 3-27 (Same As: l 06:54: KlonoPIN) [facility] 3:Reproduc tive risk Hazardous Drug -- Refer to safe handling procedure PPE Matrix Hydroxyzine 2020-0 Yes 25 mg = 1 M emoria Hydrochlori 3-27 cap, PO, l de 25 MG 06:54: Bedtime Johnny n Oral 00 Capsule Clonazepam 2020-0 No Notes: Memor ia 3-27 (Same As: l 06:54: KlonoPIN) [facility] 3:Reproduc tive risk [facility] Drug -- Refer to safe handling procedure PPE Matrix Hydroxyzine 2020-0 Yes 25 mg = 1 M emoria Hydrochlori 3-27 cap, PO, l de 25 MG 06:54: Bedtime Johnny n Oral 00 Capsule gabapentin 2020-0 Yes 300 mg = 1 M emoria 300 MG Oral 3-27 cap, PO, l Capsule 06:52: BID, # 90 Allyn nn 00 cap, 1 Refill(s) gabapentin 2020-0 Yes 300 mg = 1 M emoria 300 MG Oral 3-27 cap, PO, l Capsule 06:52: BID, # 90 Allyn nn 00 cap, 1 Refill(s) gabapentin 2020-0 Yes 300 mg = 1 M emoria 300 MG Oral 3-27 cap, PO, l Capsule 06:52: BID, # 90 Allyn nn 00 cap, 1 Refill(s) gabapentin 2020-0 Yes 300 mg = 1 M emoria 300 MG Oral 3-27 cap, PO, l Capsule 06:52: BID, # 90 Allyn nn 00 cap, 1 Refill(s) gabapentin 2020-0 Yes 300 mg = 1 M emoria 300 MG Oral 3-27 cap, PO, l Capsule 06:52: BID, # 90 Allyn nn 00 cap, 1 Refill(s) gabapentin 2020-0 Yes 300 mg = 1 M emoria 300 MG Oral 3-27 cap, PO, l Capsule 06:52: BID, # 90 Allyn nn 00 cap, 1 Refill(s) gabapentin 2020-0 Yes 300 mg = 1 M emoria 300 MG Oral 3-27 cap, PO, l Capsule 06:52: BID, # 90 Allyn nn 00 cap, 1 Refill(s) gabapentin 2020-0 Yes 300 mg = 1 M emoria 300 MG Oral 3-27 cap, PO, l Capsule 06:52: BID, # 90 Allyn nn 00 cap, 1 Refill(s) gabapentin 2020-0 Yes 300 mg = 1 M emoria 300 MG Oral 3-27 cap, PO, l Capsule 06:52: BID, # 90 Allyn nn 00 cap, 1 Refill(s) gabapentin 2020-0 Yes 300 mg = 1 M emoria 300 MG Oral 3-27 cap, PO, l Capsule 06:52: BID, # 90 Allyn nn 00 cap, 1 Refill(s) gabapentin 2020-0 Yes 300 mg = 1 M emoria 300 MG Oral 3-27 cap, PO, l Capsule 06:52: BID, # 90 Allyn nn 00 cap, 1 Refill(s) gabapentin 2020-0 Yes 300 mg = 1 M emoria 300 MG Oral 3-27 cap, PO, l Capsule 06:52: BID, # 90 Allyn nn 00 cap, 1 Refill(s) Levetiracet 2020-0 No Notes: Ervin marybel am 02-04 Same as l 06:37: Keppra Mix with 100 mL NS, LR or D5W MEDICATION WASTE Product Size: 500 mg Product Wasted: ___ mg Levetiracet 2020-0 No Notes: Ervin marybel am 02-04 Same as l 06:37: Keppra Mix with 100 mL NS, LR or D5W MEDICATION WASTE Product Size: 500 mg Product Wasted: ___ mg Levetiracet 2020-0 No Notes: Ervin marybel am 02-04 Same as l 06:37: Keppra Mix with 100 mL NS, LR or D5W MEDICATION WASTE Product Size: 500 mg Product Wasted: ___ mg Levetiracet 2020-0 No Notes: Ervin marybel am 02-04 Same as l 06:37: Keppra Mix with 100 mL NS, LR or D5W MEDICATION WASTE Product Size: 500 mg Product Wasted: ___ mg Levetiracet 2020-0 No Notes: Ervin marybel am 02-04 Same as l 06:37: Keppra Mix with 100 mL NS, LR or D5W MEDICATION WASTE Product Size: 500 mg Product Wasted: ___ mg Levetiracet 2020-0 No Notes: Ervin marybel am 02-04 Same as l 06:37: Keppra Mix with 100 mL NS, LR or D5W MEDICATION WASTE Product Size: 500 mg Product Wasted: ___ mg Levetiracet 2020-0 No Notes: Ervin marybel am 02-04 Same as l 06:37: Keppra Mix with 100 mL NS, LR or D5W MEDICATION WASTE Product Size: 500 mg Product Wasted: ___ mg Levetiracet 2020-0 No Notes: Ervin marybel am 02-04 Same as l 06:37: Keppra Mix with 100 mL NS, LR or D5W MEDICATION WASTE Product Size: 500 mg Product Wasted: ___ mg Levetiracet 2020-0 No Notes: Ervin marybel am 02-04 Same as l 06:37: Keppra Mix with 100 mL NS, LR or D5W MEDICATION WASTE Product Size: 500 mg Product Wasted: ___ mg Levetiracet 2020-0 No Notes: Ervin marybel am 02-04 Same as l 06:37: Keppra Mix with 100 mL NS, LR or D5W MEDICATION WASTE Product Size: 500 mg Product Wasted: ___ mg Levetiracet 2020-0 No Notes: Ervin marybel am 02-04 Same as l 06:37: Keppra Mix with 100 mL NS, LR or D5W MEDICATION WASTE Product Size: 500 mg Product Wasted: ___ mg Levetiracet 2020-0 No Notes: Ervin marybel am 02-04 Same as l 06:37: Keppra Mix with 100 mL NS, LR or D5W MEDICATION WASTE Product Size: 500 mg Product Wasted: ___ mg Levetiracet 2020-0 No 1,500 mg, M emoria 02-04 Route: l 06:36: IVPB, Constantia 00 ONCE, Dosing Weight 57.182, kg, Start date: 02/05/20 1:36:00 CDT, Stop date: 02/05/20 1:36:00 CDT Levetiracet 2020-0 No 1,500 mg, M emoria am 02-04 Route: l 06:36: IVPB, Syed 00 ONCE, Dosing Weight 57.182, kg, Start date: 02/05/20 1:36:00 CDT, Stop date: 02/05/20 1:36:00 CDT Levetiracet 2020-0 No 1,500 mg, M emoria am 02-04 Route: l 06:36: IVPB, Constantia 00 ONCE, Dosing Weight 57.182, kg, Start date: 02/05/20 1:36:00 CDT, Stop date: 02/05/20 1:36:00 CDT Levetiracet 2020-0 No 1,500 mg, M emoria am 02-04 Route: l 06:36: IVPB, Syed 00 ONCE, Dosing Weight 57.182, kg, Start date: 02/05/20 1:36:00 CDT, Stop date: 02/05/20 1:36:00 CDT Levetiracet 2020-0 No 1,500 mg, M emoria am 02-04 Route: l 06:36: IVPB, Constantia 00 ONCE, Dosing Weight 57.182, kg, Start date: 02/05/20 1:36:00 CDT, Stop date: 02/05/20 1:36:00 CDT Levetiracet 2020-0 No 1,500 mg, M emoria am 02-04 Route: l 06:36: IVPB, Constantia 00 ONCE, Dosing Weight 57.182, kg, Start date: 02/05/20 1:36:00 CDT, Stop date: 02/05/20 1:36:00 CDT Levetiracet 2020-0 No 1,500 mg, M emoria am 02-04 Route: l 06:36: IVPB, Syed 00 ONCE, Dosing Weight 57.182, kg, Start date: 02/05/20 1:36:00 CDT, Stop date: 02/05/20 1:36:00 CDT Levetiracet 2020-0 No 1,500 mg, M emoria am 02-04 Route: l 06:36: IVPB, Constantia 00 ONCE, Dosing Weight 57.182, kg, Start date: 02/05/20 1:36:00 CDT, Stop date: 02/05/20 1:36:00 CDT Levetiracet 2020-0 No 1,500 mg, M emoria am 02-04 Route: l 06:36: IVPB, Constantia 00 ONCE, Dosing Weight 57.182, kg, Start date: 02/05/20 1:36:00 CDT, Stop date: 02/05/20 1:36:00 CDT Levetiracet 2020-0 No 1,500 mg, M emoria am 02-04 Route: l 06:36: IVPB, Syed 00 ONCE, Dosing Weight 57.182, kg, Start date: 02/05/20 1:36:00 CDT, Stop date: 02/05/20 1:36:00 CDT Levetiracet 2020-0 No 1,500 mg, M emoria am 02-04 Route: l 06:36: IVPB, Syed 00 ONCE, Dosing Weight 57.182, kg, Start date: 02/05/20 1:36:00 CDT, Stop date: 02/05/20 1:36:00 CDT Levetiracet 2020-0 No 1,500 mg, M emoria am 02-04 Route: l 06:36: IVPB, Constantia 00 ONCE, Dosing Weight 57.182, kg, Start date: 02/05/20 1:36:00 CDT, Stop date: 02/05/20 1:36:00 CDT diclofenac 2018-0 Yes 75mg Take 1 Unive rs 75 mg EC 6-29 tablet by ity of tablet 00:00: mouth (two) Medical times Branch daily with meals. diclofenac 2018-0 Yes 75mg Take 1 Unive rs 75 mg EC 6-29 tablet by ity of tablet 00:00: mouth (two) Medical times Branch daily with meals. diclofenac 2018-0 Yes 75mg Take 1 Unive rs 75 mg EC 6-29 tablet by ity of tablet 00:00: mouth (two) Medical times Branch daily with meals. diclofenac 2018-0 Yes 75mg Take 1 Unive rs 75 mg EC 6-29 tablet by ity of tablet 00:00: mouth (two) Medical times Branch daily with meals. diclofenac 2018-0 Yes 75mg Take 1 Unive rs 75 mg EC 6-29 tablet by ity of tablet 00:00: mouth (two) Medical times Branch daily with meals. diclofenac 2018-0 2021- No 75mg Take 1 Univ ers 75 mg EC 6-29 12- tablet by ity o f tablet 00:00: 00:00 mouth 2 [place] 00 :00 (two) Medical times Branch daily with meals. metoprolol 2018-0 Yes 25mg Take 25 mg U nivers succinate 3-09 by mouth ity of XL 25 mg 24 14:38: [place]. [place] tablet 08 [facility] clonazePAM 2018-0 Yes .5mg Take 0.5 Uni vers (KLONOPIN) 3-09 mg by ity of 0.5 mg 14:38: mouth 3 [place] tablet 08 (three) Medical times Branch daily. metoprolol 2018-0 Yes 25mg Take 25 mg U nivers succinate 3-09 by mouth ity of XL 25 mg 24 14:38: daily. [place] tablet 08 [facility] clonazePAM 2017-0 Yes .5mg Take 0.5 Uni vers (KLONOPIN) 3-09 mg by ity of 0.5 mg 14:38: mouth 3 [place] tablet 08 (three) Medical times Branch daily. metoprolol 2018-0 Yes 25mg Take 25 mg U nivers succinate 3-09 by mouth ity of XL 25 mg 24 14:38: daily. [place] tablet 08 [facility] clonazePAM 2017-0 Yes .5mg Take 0.5 Uni vers (KLONOPIN) 3-09 mg by ity of 0.5 mg 14:38: mouth 3 [place] tablet 08 (three) Medical times Branch daily. metoprolol 2018-0 Yes 25mg Take 25 mg U nivers succinate 3-09 by mouth ity of XL 25 mg 24 14:38: daily. [place] tablet 08 [facility] clonazePAM 2017-0 Yes .5mg Take 0.5 Uni vers (KLONOPIN) 3-09 mg by ity of 0.5 mg 14:38: mouth 3 [place] tablet 08 (three) Medical times Branch daily. metoprolol 2018-0 Yes 25mg Take 25 mg U nivers succinate 3-09 by mouth ity of XL 25 mg 24 14:38: daily. [place] tablet 08 [facility] clonazePAM 2017-0 Yes .5mg Take 0.5 Uni vers (KLONOPIN) 3-09 mg by ity of 0.5 mg 14:38: mouth 3 [place] tablet 08 (three) Medical times Branch daily. levothyroxi 2018-0 Yes TK 1 T PO U nivers ne 112 mcg 2-05 QD ity of tablet 00:00: [place] 00 [facility] levothyroxi 2018-0 Yes TK 1 T PO U nivers ne 112 mcg 2-05 QD ity of tablet 00:00: [place] [facility] levothyroxi Yes TK 1 T PO U nivers ne 112 mcg 2-05 QD ity of tablet 00:00: [place] [facility] levothyroxi Yes TK 1 T PO U nivers ne 112 mcg 2-05 QD ity of tablet 00:00: [place] [facility] levothyroxi Yes TK 1 T PO U nivers ne 112 mcg 2-05 QD ity of tablet 00:00: [place] [facility] levothyroxi 2021- No TK 1 T PO Univers ne 112 mcg 2-05 12-07 QD ity of tablet 00:00: 00:00 [place] 00 :00 [facility] metoprolol Yes TK 1 T PO Un mesfin tartrate 25 1-07 BID ity of mg tablet 00:00: [place] [facility] metoprolol Yes TK 1 T PO Un mesfin tartrate 25 1-07 BID ity of mg tablet 00:00: [place] [facility] metoprolol Yes TK 1 T PO Un mesfin tartrate 25 1-07 BID ity of mg tablet 00:00: [place] [facility] metoprolol Yes TK 1 T PO Un mesfin tartrate 25 1-07 BID ity of mg tablet 00:00: [place] [facility] metoprolol Yes TK 1 T PO Un mesfin tartrate 25 1-07 BID ity of mg tablet 00:00: [place] [facility] metoprolol 2021- No TK 1 T PO U nivers tartrate 25 1-07 12-07 BID ity of mg tablet 00:00: 00:00 [place] 00 :00 [facility] Aspirin 325 No 325 mg, 1 M emoria MG Enteric 4-21 tab, l Coated 14:00: Route: PO, Allyn nn Tablet 00 BID, Dosing Weight 56.818, kg, Start date: 03/01/16 9:00:00 CDT, Duration: 30 day, Stop date: 03/30/16 17:00:00 CDT Aspirin 325 No 325 mg, 1 M emoria MG Enteric 4-21 tab, l Coated 14:00: Route: PO, Allyn nn Tablet 00 BID, Dosing Weight 56.818, kg, Start date: 03/01/16 9:00:00 CDT, Duration: 30 day, Stop date: 03/30/16 17:00:00 CDT Aspirin 325 2015-0 No 325 mg, 1 M emoria MG Enteric 4-21 tab, l Coated 14:00: Route: PO, Allyn nn Tablet 00 BID, Dosing Weight 56.818, kg, Start date: 03/01/16 9:00:00 CDT, Duration: 30 day, Stop date: 03/30/16 17:00:00 CDT Aspirin 325 2015-0 No 325 mg, 1 M emoria MG Enteric 4-21 tab, l Coated 14:00: Route: PO, Allyn nn Tablet 00 BID, Dosing Weight 56.818, kg, Start date: 03/01/16 9:00:00 CDT, Duration: 30 day, Stop date: 03/30/16 17:00:00 CDT Aspirin 325 2015-0 No 325 mg, 1 M emoria MG Enteric 4-21 tab, l Coated 14:00: Route: PO, Allyn nn Tablet 00 BID, Dosing Weight 56.818, kg, Start date: 03/01/16 9:00:00 CDT, Duration: 30 day, Stop date: 03/30/16 17:00:00 CDT Aspirin 325 2015-0 No 325 mg, 1 M emoria MG Enteric 4-21 tab, l Coated 14:00: Route: PO, Allyn nn Tablet 00 BID, Dosing Weight 56.818, kg, Start date: 03/01/16 9:00:00 CDT, Duration: 30 day, Stop date: 03/30/16 17:00:00 CDT Aspirin 325 2015-0 No 325 mg, 1 M emoria MG Enteric 4-21 tab, l Coated 14:00: Route: PO, Allyn nn Tablet 00 BID, Dosing Weight 56.818, kg, Start date: 03/01/16 9:00:00 CDT, Duration: 30 day, Stop date: 03/30/16 17:00:00 CDT Aspirin 325 2015-0 No 325 mg, 1 M emoria MG Enteric 4-21 tab, l Coated 14:00: Route: PO, Allyn nn Tablet 00 BID, Dosing Weight 56.818, kg, Start date: 03/01/16 9:00:00 CDT, Duration: 30 day, Stop date: 03/30/16 17:00:00 CDT Aspirin 325 2015-0 No 325 mg, 1 M emoria MG Enteric 4-21 tab, l Coated 14:00: Route: PO, Allyn nn Tablet 00 BID, Dosing Weight 56.818, kg, Start date: 03/01/16 9:00:00 CDT, Duration: 30 day, Stop date: 03/30/16 17:00:00 CDT Aspirin 325 2015-0 No 325 mg, 1 M emoria MG Enteric 4-21 tab, l Coated 14:00: Route: PO, Allyn nn Tablet 00 BID, Dosing Weight 56.818, kg, Start date: 03/01/16 9:00:00 CDT, Duration: 30 day, Stop date: 03/30/16 17:00:00 CDT Aspirin 325 2015-0 No 325 mg, 1 M emoria MG Enteric 4-21 tab, l Coated 14:00: Route: PO, Allyn nn Tablet 00 BID, Dosing Weight 56.818, kg, Start date: 03/01/16 9:00:00 CDT, Duration: 30 day, Stop date: 03/30/16 17:00:00 CDT Aspirin 325 2015-0 No 325 mg, 1 M emoria MG Enteric 4-21 tab, l Coated 14:00: Route: PO, Allyn nn Tablet 00 BID, Dosing Weight 56.818, kg, Start date: 03/01/16 9:00:00 CDT, Duration: 30 day, Stop date: 03/30/16 17:00:00 CDT Synthroid No Notes: Memori a 4-21 Take 1 l 11:30: hour Constantia 00 before or 2 hours after meal; Enteral feeds may interefere with the absorption of this medication . (Same as:Synthro id, Levothroid ) Levothroid No Notes: Memor ia 4-21 Take 1 l 11:30: hour Syed 00 before or 2 hours after meal; Enteral feeds may interefere with the absorption of this medication . (Same as:Levothr oid, Synthroid) Synthroid No Notes: Memori a 4-21 Take 1 l 11:30: hour Syed 00 before or 2 hours after meal; Enteral feeds may interefere with the absorption of this medication . (Same as:Synthro id, Levothroid ) Levothroid No Notes: Memor ia 4-21 Take 1 l 11:30: hour Constantia 00 before or 2 hours after meal; Enteral feeds may interefere with the absorption of this medication . (Same as:Levothr oid, Synthroid) Synthroid No Notes: Memori a 4-21 Take 1 l 11:30: hour Constantia 00 before or 2 hours after meal; Enteral feeds may interefere with the absorption of this medication . (Same as:Synthro id, Levothroid ) Levothroid No Notes: Memor ia 4-21 Take 1 l 11:30: hour Constantia 00 before or 2 hours after meal; Enteral feeds may interefere with the absorption of this medication . (Same as:Levothr oid, Synthroid) Synthroid No Notes: Memori a 4-21 Take 1 l 11:30: hour Syed 00 before or 2 hours after meal; Enteral feeds may interefere with the absorption of this medication . (Same as:Synthro id, Levothroid ) Levothroid No Notes: Memor ia 4-21 Take 1 l 11:30: hour Constantia 00 before or 2 hours after meal; Enteral feeds may interefere with the absorption of this medication . (Same as:Levothr oid, Synthroid) Synthroid No Notes: Memori a 4-21 Take 1 l 11:30: hour Syed 00 before or 2 hours after meal; Enteral feeds may interefere with the absorption of this medication . (Same as:Synthro id, Levothroid ) Levothroid No Notes: Memor ia 4-21 Take 1 l 11:30: hour Syed 00 before or 2 hours after meal; Enteral feeds may interefere with the absorption of this medication . (Same as:Levothr oid, Synthroid) Synthroid No Notes: Memori a 4-21 Take 1 l 11:30: hour Constantia 00 before or 2 hours after meal; Enteral feeds may interefere with the absorption of this medication . (Same as:Synthro id, Levothroid ) Levothroid No Notes: Memor ia 4-21 Take 1 l 11:30: hour Syed 00 before or 2 hours after meal; Enteral feeds may interefere with the absorption of this medication . (Same as:Levothr oid, Synthroid) Synthroid No Notes: Memori a 4-21 Take 1 l 11:30: hour Constantia 00 before or 2 hours after meal; Enteral feeds may interefere with the absorption of this medication . (Same as:Synthro id, Levothroid ) Levothroid No Notes: Memor ia 4-21 Take 1 l 11:30: hour Constantia 00 before or 2 hours after meal; Enteral feeds may interefere with the absorption of this medication . (Same as:Levothr oid, Synthroid) Synthroid No Notes: Memori a 4-21 Take 1 l 11:30: hour Syed 00 before or 2 hours after meal; Enteral feeds may interefere with the absorption of this medication . (Same as:Synthro id, Levothroid ) Levothroid No Notes: Memor ia 4-21 Take 1 l 11:30: hour Syed 00 before or 2 hours after meal; Enteral feeds may interefere with the absorption of this medication . (Same as:Levothr oid, Synthroid) Synthroid No Notes: Memori a 4-21 Take 1 l 11:30: hour Syed 00 before or 2 hours after meal; Enteral feeds may interefere with the absorption of this medication . (Same as:Synthro id, Levothroid ) Levothroid No Notes: Memor ia 4-21 Take 1 l 11:30: hour Constantia 00 before or 2 hours after meal; Enteral feeds may interefere with the absorption of this medication . (Same as:Levothr oid, Synthroid) Synthroid No Notes: Memori a 4-21 Take 1 l 11:30: hour Constantia 00 before or 2 hours after meal; Enteral feeds may interefere with the absorption of this medication . (Same as:Synthro id, Levothroid ) Levothroid No Notes: Memor ia 4-21 Take 1 l 11:30: hour Syed 00 before or 2 hours after meal; Enteral feeds may interefere with the absorption of this medication . (Same as:Levothr oid, Synthroid) Synthroid No Notes: Memori a 4-21 Take 1 l 11:30: hour Syed 00 before or 2 hours after meal; Enteral feeds may interefere with the absorption of this medication . (Same as:Synthro id, Levothroid ) Levothroid No Notes: Memor ia 4-21 Take 1 l 11:30: hour Syed 00 before or 2 hours after meal; Enteral feeds may interefere with the absorption of this medication . (Same as:Levothr oid, Synthroid) Synthroid No Notes: Memori a 4-21 Take 1 l 11:30: hour Constantia 00 before or 2 hours after meal; Enteral feeds may interefere with the absorption of this medication . (Same as:Synthro id, Levothroid ) Levothroid No Notes: Memor ia 4-21 Take 1 l 11:30: hour Syed 00 before or 2 hours after meal; Enteral feeds may interefere with the absorption of this medication . (Same as:Levothr oid, Synthroid) Aspirin 325 2015-0 Yes 325 mg = 1 Memoria MG Enteric 4-21 tab, PO, l Coated 11:01: BID, # 84 Johnny n Tablet 00 tab, 0 Refill(s) Aspirin 325 2016-0 Yes 325 mg = 1 Memoria MG Enteric 4-21 tab, PO, l Coated 11:01: BID, # 84 Johnny n Tablet 00 tab, 0 Refill(s) Aspirin 325 2016-0 Yes 325 mg = 1 Memoria MG Enteric 4-21 tab, PO, l Coated 11:01: BID, # 84 Johnny n Tablet 00 tab, 0 Refill(s) Aspirin 325 2016-0 Yes 325 mg = 1 Memoria MG Enteric 4-21 tab, PO, l Coated 11:01: BID, # 84 Johnny n Tablet 00 tab, 0 Refill(s) Aspirin 325 2016-0 Yes 325 mg = 1 Memoria MG Enteric 4-21 tab, PO, l Coated 11:01: BID, # 84 Johnny n Tablet 00 tab, 0 Refill(s) Aspirin 325 2016-0 Yes 325 mg = 1 Memoria MG Enteric 4-21 tab, PO, l Coated 11:01: BID, # 84 Johnny n Tablet 00 tab, 0 Refill(s) Aspirin 325 Yes 325 mg = 1 Memoria MG Enteric 4-21 tab, PO, l Coated 11:01: BID, # 84 Johnny n Tablet 00 tab, 0 Refill(s) Aspirin 325 Yes 325 mg = 1 Memoria MG Enteric 4-21 tab, PO, l Coated 11:01: BID, # 84 Johnny n Tablet 00 tab, 0 Refill(s) Aspirin 325 Yes 325 mg = 1 Memoria MG Enteric 4-21 tab, PO, l Coated 11:01: BID, # 84 Johnny n Tablet 00 tab, 0 Refill(s) Aspirin 325 Yes 325 mg = 1 Memoria MG Enteric 4-21 tab, PO, l Coated 11:01: BID, # 84 Johnny n Tablet 00 tab, 0 Refill(s) Aspirin 325 Yes 325 mg = 1 Memoria MG Enteric 4-21 tab, PO, l Coated 11:01: BID, # 84 Johnny n Tablet 00 tab, 0 Refill(s) Aspirin 325 Yes 325 mg = 1 Memoria MG Enteric 4-21 tab, PO, l Coated 11:01: BID, # 84 Johnny n Tablet 00 tab, 0 Refill(s) Calcium Yes 1 tab, PO, Ervin marybel Carbonate 03-01 BID, # 60 l 1250 MG / 10:57: tab, 0 Johnny n Cholecalcif 00 Refill(s) joanie 400 UNT Chewable Tablet acetaminoph Yes 1,000 mg = Memoria en 500 mg 03-01 2 tab, PO, l oral tablet 10:57: Q6Hnow, Her feng 00 PRN Pain Score 6-10, # 50 tab, 0 Refill(s) docusate Yes 100 mg = 1 Mem oria sodium 100 03-01 cap, PO, l mg oral 10:57: BID, # 60 Allyn nn capsule 00 cap, 0 Refill(s) Calcium Yes 1 tab, PO, Ervin marybel Carbonate 03-01 BID, # 60 l 1250 MG / 10:57: tab, 0 Johnny n Cholecalcif 00 Refill(s) joanie 400 UNT Chewable Tablet acetaminoph Yes 1,000 mg = Memoria en 500 mg 4-21 2 tab, PO, l oral tablet 10:57: Q6Hnow, Her feng 00 PRN Pain Score 6-10, # 50 tab, 0 Refill(s) docusate Yes 100 mg = 1 Mem oria sodium 100 4-21 cap, PO, l mg oral 10:57: BID, # 60 Allyn nn capsule 00 cap, 0 Refill(s) Calcium Yes 1 tab, PO, Ervin marybel Carbonate 4-21 BID, # 60 l 1250 MG / 10:57: tab, 0 Johnny n Cholecalcif 00 Refill(s) joanie 400 UNT Chewable Tablet acetaminoph Yes 1,000 mg = Memoria en 500 mg 4-21 2 tab, PO, l oral tablet 10:57: Q6Hnow, Her feng 00 PRN Pain Score 6-10, # 50 tab, 0 Refill(s) docusate Yes 100 mg = 1 Mem oria sodium 100 4-21 cap, PO, l mg oral 10:57: BID, # 60 Allyn nn capsule 00 cap, 0 Refill(s) Calcium Yes 1 tab, PO, Ervin marybel Carbonate 4-21 BID, # 60 l 1250 MG / 10:57: tab, 0 Johnny n Cholecalcif 00 Refill(s) joanie 400 UNT Chewable Tablet acetaminoph Yes 1,000 mg = Memoria en 500 mg 4-21 2 tab, PO, l oral tablet 10:57: Q6Hnow, Her feng 00 PRN Pain Score 6-10, # 50 tab, 0 Refill(s) docusate Yes 100 mg = 1 Mem oria sodium 100 4-21 cap, PO, l mg oral 10:57: BID, # 60 Allyn nn capsule 00 cap, 0 Refill(s) Calcium Yes 1 tab, PO, Ervin marybel Carbonate 4-21 BID, # 60 l 1250 MG / 10:57: tab, 0 Johnny n Cholecalcif 00 Refill(s) joanie 400 UNT Chewable Tablet acetaminoph Yes 1,000 mg = Memoria en 500 mg 4-21 2 tab, PO, l oral tablet 10:57: Q6Hnow, Her feng 00 PRN Pain Score 6-10, # 50 tab, 0 Refill(s) docusate Yes 100 mg = 1 Mem oria sodium 100 4-21 cap, PO, l mg oral 10:57: BID, # 60 Allyn nn capsule 00 cap, 0 Refill(s) Calcium Yes 1 tab, PO, Ervin marybel Carbonate 4-21 BID, # 60 l 1250 MG / 10:57: tab, 0 Johnny n Cholecalcif 00 Refill(s) joanie 400 UNT Chewable Tablet acetaminoph Yes 1,000 mg = Memoria en 500 mg 4-21 2 tab, PO, l oral tablet 10:57: Q6Hnow, Her feng 00 PRN Pain Score 6-10, # 50 tab, 0 Refill(s) docusate Yes 100 mg = 1 Mem oria sodium 100 4-21 cap, PO, l mg oral 10:57: BID, # 60 Allyn nn capsule 00 cap, 0 Refill(s) Calcium Yes 1 tab, PO, Ervin marybel Carbonate 4-21 BID, # 60 l 1250 MG / 10:57: tab, 0 Johnny n Cholecalcif 00 Refill(s) joanie 400 UNT Chewable Tablet acetaminoph Yes 1,000 mg = Memoria en 500 mg 4-21 2 tab, PO, l oral tablet 10:57: Q6Hnow, Her feng 00 PRN Pain Score 6-10, # 50 tab, 0 Refill(s) docusate Yes 100 mg = 1 Mem oria sodium 100 4-21 cap, PO, l mg oral 10:57: BID, # 60 Allyn nn capsule 00 cap, 0 Refill(s) Calcium Yes 1 tab, PO, Ervin marybel Carbonate 4-21 BID, # 60 l 1250 MG / 10:57: tab, 0 Johnny n Cholecalcif 00 Refill(s) joanie 400 UNT Chewable Tablet acetaminoph Yes 1,000 mg = Memoria en 500 mg 4-21 2 tab, PO, l oral tablet 10:57: Q6Hnow, Her feng 00 PRN Pain Score 6-10, # 50 tab, 0 Refill(s) docusate Yes 100 mg = 1 Mem oria sodium 100 4-21 cap, PO, l mg oral 10:57: BID, # 60 Allyn nn capsule 00 cap, 0 Refill(s) Calcium Yes 1 tab, PO, Ervin marybel Carbonate 4-21 BID, # 60 l 1250 MG / 10:57: tab, 0 Johnny n Cholecalcif 00 Refill(s) joanie 400 UNT Chewable Tablet acetaminoph Yes 1,000 mg = Memoria en 500 mg 4-21 2 tab, PO, l oral tablet 10:57: Q6Hnow, Her feng 00 PRN Pain Score 6-10, # 50 tab, 0 Refill(s) docusate Yes 100 mg = 1 Mem oria sodium 100 4-21 cap, PO, l mg oral 10:57: BID, # 60 Alyln nn capsule 00 cap, 0 Refill(s) Calcium Yes 1 tab, PO, Ervin maryebl Carbonate 4-21 BID, # 60 l 1250 MG / 10:57: tab, 0 Johnny n Cholecalcif 00 Refill(s) joanie 400 UNT Chewable Tablet acetaminoph Yes 1,000 mg = Memoria en 500 mg -21 2 tab, PO, l oral tablet 10:57: Q6Hnow, [facility] 00 PRN Pain Score 6-10, # 50 tab, 0 Refill(s) docusate Yes 100 mg = 1 Mem oria sodium 100 4-21 cap, PO, l mg oral 10:57: BID, # 60 Allyn nn capsule 00 cap, 0 Refill(s) Calcium Yes 1 tab, PO, Ervin marybel Carbonate 4-21 BID, # 60 l 1250 MG / 10:57: tab, 0 Johnny n Cholecalcif 00 Refill(s) joanie 400 UNT Chewable Tablet acetaminoph Yes 1,000 mg = Memoria en 500 mg 4-21 2 tab, PO, l oral tablet 10:57: Q6Hnow, Her feng 00 PRN Pain Score 6-10, # 50 tab, 0 Refill(s) docusate Yes 100 mg = 1 Mem oria sodium 100 4-21 cap, PO, l mg oral 10:57: BID, # 60 Allyn nn capsule 00 cap, 0 Refill(s) Calcium Yes 1 tab, PO, Ervin marybel Carbonate 03-01 BID, # 60 l 1250 MG / 10:57: tab, 0 Johnny n Cholecalcif 00 Refill(s) joanie 400 UNT Chewable Tablet acetaminoph Yes 1,000 mg = Memoria en 500 mg 03-01 2 tab, PO, l oral tablet 10:57: Q6Hnow, Her feng 00 PRN Pain Score 6-10, # 50 tab, 0 Refill(s) docusate Yes 100 mg = 1 Mem oria sodium 100 03-01 cap, PO, l mg oral 10:57: BID, # 60 Allyn nn capsule 00 cap, 0 Refill(s) Zofran No Notes: Memoria 03-01 (Same as: 04:53: Zofran) Syed 00 MEDICATION WASTE Product Size: 4 mg Product Wasted: ___ mg Zofran No Notes: Memoria 03-01 (Same as: 04:53: Zofran) Syed 00 MEDICATION WASTE Product Size: 4 mg Product Wasted: ___ mg Zofran No Notes: Memoria 03-01 (Same as: l 04:53: Zofran) Syed 00 MEDICATION WASTE Product Size: 4 mg Product Wasted: ___ mg Zofran No Notes: Memoria 03-01 (Same as: 04:53: Zofran) Syed 00 MEDICATION WASTE Product Size: 4 mg Product Wasted: ___ mg Zofran No Notes: Memoria 03-01 (Same as: l 04:53: Zofran) Syed 00 MEDICATION WASTE Product Size: 4 mg Product Wasted: ___ mg Zofran No Notes: Memoria 03-01 (Same as: l 04:53: Zofran) Syed 00 MEDICATION WASTE Product Size: 4 mg Product Wasted: ___ mg Zofran No Notes: Memoria 03-01 (Same as: l 04:53: Zofran) Syed 00 MEDICATION WASTE Product Size: 4 mg Product Wasted: ___ mg Zofran 2015- No Notes: Memoria - (Same as: l 04:53: Zofran) Syed 00 MEDICATION WASTE Product Size: 4 mg Product Wasted: ___ mg Zofran No Notes: Memoria - (Same as: l 04:53: Zofran) Syed 00 MEDICATION WASTE Product Size: 4 mg Product Wasted: ___ mg Zofran No Notes: Memoria - (Same as: l 04:53: Zofran) Syed 00 MEDICATION WASTE Product Size: 4 mg Product Wasted: ___ mg Zofran No Notes: Memoria 03-01 (Same as: l 04:53: Zofran) Syed 00 MEDICATION WASTE Product Size: 4 mg Product Wasted: ___ mg Zofran No Notes: Memoria 03-01 (Same as: l 04:53: Zofran) Syed 00 MEDICATION WASTE Product Size: 4 mg Product Wasted: ___ mg Morphine No Notes: Memoria 4- (Same l 04:52: as:MORPhin Syed 00 e Sulfate) Morphine No Notes: Memoria 4- (Same l 04:52: as:MORPhin Constantia 00 e Sulfate) Morphine No Notes: Memoria 4- (Same l 04:52: as:MORPhin Constantia 00 e Sulfate) Morphine 0 No Notes: Memoria 4-21 (Same l 04:52: as:MORPhin Syed 00 e Sulfate) Morphine 2015-0 No Notes: Memoria 4-21 (Same l 04:52: as:MORPhin Seyd 00 e Sulfate) Morphine No Notes: Memoria 4- (Same l 04:52: as:MORPhin Syed 00 e Sulfate) Morphine 2015- No Notes: Memoria 4-21 (Same l 04:52: as:MORPhin Syed 00 e Sulfate) Morphine No Notes: Memoria 4-21 (Same l 04:52: as:MORPhin Constantia 00 e Sulfate) Morphine No Notes: Memoria 4-21 (Same l 04:52: as:MORPhin Syed 00 e Sulfate) Morphine No Notes: Memoria 4-21 (Same l 04:52: as:MORPhin Syed 00 e Sulfate) Morphine No Notes: Memoria 4-21 (Same l 04:52: as:MORPhin Syed 00 e Sulfate) Morphine No Notes: Memoria 4-21 (Same l 04:52: as:MORPhin Constantia 00 e Sulfate) sennosides, No Notes: Ervin marybel CARE HOME 4-21 (Same as: l 02:00: Senokot) Constantia 00 Aricept No 23 mg, 1 Memori a 4-21 tab, l 02:00: Route: PO, Constantia 00 Drug form: TAB, Bedtime, Dosing Weight 56.818, kg, Start date: 02/29/16 21:00:00 CDT, Duration: 30 day, Stop date: 03/29/16 21:00:00 CDT Clonazepam No Notes: Memor ia 4-21 (Same As: l 02:00: KlonoPIN) Constantia 00 sennosides, No Notes: Ervin marybel CARE HOME 4-21 (Same as: l 02:00: Senokot) Constantia 00 Aricept No 23 mg, 1 Memori a 4-21 tab, l 02:00: Route: PO, Syed 00 Drug form: TAB, Bedtime, Dosing Weight 56.818, kg, Start date: 02/29/16 21:00:00 CDT, Duration: 30 day, Stop date: 03/29/16 21:00:00 CDT Clonazepam No Notes: Memor ia 4-21 (Same As: l 02:00: KlonoPIN) Constantia 00 sennosides, No Notes: Ervin marybel CARE HOME 4-21 (Same as: l 02:00: Senokot) Constantia Aricept No 23 mg, 1 Memori a 4-21 tab, l 02:00: Route: PO, Syed 00 Drug form: TAB, Bedtime, Dosing Weight 56.818, kg, Start date: 02/29/16 21:00:00 CDT, Duration: 30 day, Stop date: 03/29/16 21:00:00 CDT Clonazepam No Notes: Memor ia 4-21 (Same As: l 02:00: KlonoPIN) sennosides, No Notes: Ervin marybel CARE HOME 4-21 (Same as: l 02:00: Senokot) Aricept 0 No 23 mg, 1 Memori a 4-21 tab, l 02:00: Route: PO, Drug form: TAB, Bedtime, Dosing Weight 56.818, kg, Start date: 02/29/16 21:00:00 CDT, Duration: 30 day, Stop date: 03/29/16 21:00:00 CDT Clonazepam No Notes: Memor ia 4-21 (Same As: l 02:00: KlonoPIN) sennosides, No Notes: Ervin marybel CARE HOME 4-21 (Same as: l 02:00: Senokot) Aricept No 23 mg, 1 Memori a 4-21 tab, l 02:00: Route: PO, Syed 00 Drug form: TAB, Bedtime, Dosing Weight 56.818, kg, Start date: 02/29/16 21:00:00 CDT, Duration: 30 day, Stop date: 03/29/16 21:00:00 CDT Clonazepam No Notes: Memor ia 4-21 (Same As: l 02:00: KlonoPIN) sennosides, No Notes: Ervin marybel CARE HOME 4-21 (Same as: l 02:00: Senokot) Aricept 0 No 23 mg, 1 Memori a 4-21 tab, l 02:00: Route: PO, Drug form: TAB, Bedtime, Dosing Weight 56.818, kg, Start date: 02/29/16 21:00:00 CDT, Duration: 30 day, Stop date: 03/29/16 21:00:00 CDT Clonazepam 0 No Notes: Memor ia 4-21 (Same As: l 02:00: KlonoPIN) sennosides, No Notes: Ervin marybel CARE HOME 4-21 (Same as: l 02:00: Senokot) Aricept 2015-0 No 23 mg, 1 Memori a 4-21 tab, l 02:00: Route: PO, Constantia 00 Drug form: TAB, Bedtime, Dosing Weight 56.818, kg, Start date: 02/29/16 21:00:00 CDT, Duration: 30 day, Stop date: 03/29/16 21:00:00 CDT Clonazepam No Notes: Memor ia 4-21 (Same As: l 02:00: KlonoPIN) sennosides, No Notes: Ervin marybel CARE HOME 4-21 (Same as: l 02:00: Senokot) Aricept No 23 mg, 1 Memori a 4-21 tab, l 02:00: Route: PO, Syed 00 Drug form: TAB, Bedtime, Dosing Weight 56.818, kg, Start date: 02/29/16 21:00:00 CDT, Duration: 30 day, Stop date: 03/29/16 21:00:00 CDT Clonazepam No Notes: Memor ia 4-21 (Same As: l 02:00: KlonoPIN) sennosides, No Notes: Ervin marybel CARE HOME 4-21 (Same as: l 02:00: Senokot) Aricept No 23 mg, 1 Memori a 4-21 tab, l 02:00: Route: PO, Drug form: TAB, Bedtime, Dosing Weight 56.818, kg, Start date: 02/29/16 21:00:00 CDT, Duration: 30 day, Stop date: 03/29/16 21:00:00 CDT Clonazepam No Notes: Memor ia 4-21 (Same As: l 02:00: KlonoPIN) sennosides, No Notes: Ervin marybel CARE HOME 4-21 (Same as: l 02:00: Senokot) Aricept 0 No 23 mg, 1 Memori a 4-21 tab, l 02:00: Route: PO, Drug form: TAB, Bedtime, Dosing Weight 56.818, kg, Start date: 02/29/16 21:00:00 CDT, Duration: 30 day, Stop date: 03/29/16 21:00:00 CDT Clonazepam No Notes: Memor ia 4-21 (Same As: l 02:00: KlonoPIN) sennosides, No Notes: Ervin marybel CARE HOME 4-21 (Same as: l 02:00: Senokot) Aricept No 23 mg, 1 Memori a 4-21 tab, l 02:00: Route: PO, Drug form: TAB, Bedtime, Dosing Weight 56.818, kg, Start date: 02/29/16 21:00:00 CDT, Duration: 30 day, Stop date: 03/29/16 21:00:00 CDT Clonazepam No Notes: Memor ia 4-21 (Same As: l 02:00: KlonoPIN) sennosides, No Notes: Ervin marybel CARE HOME 4-21 (Same as: l 02:00: Senokot) Aricept No 23 mg, 1 Memori a 4-21 tab, l 02:00: Route: PO, Drug form: TAB, Bedtime, Dosing Weight 56.818, kg, Start date: 02/29/16 21:00:00 CDT, Duration: 30 day, Stop date: 03/29/16 21:00:00 CDT Clonazepam No Notes: Memor ia 4-21 (Same As: l 02:00: KlonoPIN) Calcium No 1,000 mL, Memor ia Chloride 4-21 1,000 l 0.0014 01:28: ml/hr, MEQ/ML / 00 Infuse Potassium Over: 1 Chloride hr, Route: 0.004 IV, 1,000, MEQ/ML / Drug form: Sodium INJ, ONCE, Chloride Priority: 0.103 STAT, MEQ/ML / Dosing Sodium Weight Lactate 56.818 kg, 0.028 Start MEQ/ML date: Injectable 02/29/16 Solution 20:28:00 CDT, Duration: 1 doses or times, Stop date: 02/29/16 20:28:00 CDT Calcium 2016-0 No 1,000 mL, Memor ia Chloride 4-21 1,000 l 0.0014 01:28: ml/hr, Syed MEQ/ML / 00 Infuse Potassium Over: 1 Chloride hr, Route: 0.004 IV, 1,000, MEQ/ML / Drug form: Sodium INJ, ONCE, Chloride Priority: 0.103 STAT, MEQ/ML / Dosing Sodium Weight Lactate 56.818 kg, 0.028 Start MEQ/ML date: Injectable 02/29/16 Solution 20:28:00 CDT, Duration: 1 doses or times, Stop date: 02/29/16 20:28:00 CDT Calcium 2016-0 No 1,000 mL, Memor ia Chloride 4-21 1,000 l 0.0014 01:28: ml/hr, Constantia MEQ/ML / 00 Infuse Potassium Over: 1 Chloride hr, Route: 0.004 IV, 1,000, MEQ/ML / Drug form: Sodium INJ, ONCE, Chloride Priority: 0.103 STAT, MEQ/ML / Dosing Sodium Weight Lactate 56.818 kg, 0.028 Start MEQ/ML date: Injectable 02/29/16 Solution 20:28:00 CDT, Duration: 1 doses or times, Stop date: 02/29/16 20:28:00 CDT Calcium 2016-0 No 1,000 mL, Memor ia Chloride 4-21 1,000 l 0.0014 01:28: ml/hr, Syed MEQ/ML / 00 Infuse Potassium Over: 1 Chloride hr, Route: 0.004 IV, 1,000, MEQ/ML / Drug form: Sodium INJ, ONCE, Chloride Priority: 0.103 STAT, MEQ/ML / Dosing Sodium Weight Lactate 56.818 kg, 0.028 Start MEQ/ML date: Injectable 02/29/16 Solution 20:28:00 CDT, Duration: 1 doses or times, Stop date: 02/29/16 20:28:00 CDT Calcium 2016-0 No 1,000 mL, Memor ia Chloride 4-21 1,000 l 0.0014 01:28: ml/hr, Constantia MEQ/ML / 00 Infuse Potassium Over: 1 Chloride hr, Route: 0.004 IV, 1,000, MEQ/ML / Drug form: Sodium INJ, ONCE, Chloride Priority: 0.103 STAT, MEQ/ML / Dosing Sodium Weight Lactate 56.818 kg, 0.028 Start MEQ/ML date: Injectable 02/29/16 Solution 20:28:00 CDT, Duration: 1 doses or times, Stop date: 02/29/16 20:28:00 CDT Calcium 2016-0 No 1,000 mL, Memor ia Chloride 4-21 1,000 l 0.0014 01:28: ml/hr, Syed MEQ/ML / 00 Infuse Potassium Over: 1 Chloride hr, Route: 0.004 IV, 1,000, MEQ/ML / Drug form: Sodium INJ, ONCE, Chloride Priority: 0.103 STAT, MEQ/ML / Dosing Sodium Weight Lactate 56.818 kg, 0.028 Start MEQ/ML date: Injectable 02/29/16 Solution 20:28:00 CDT, Duration: 1 doses or times, Stop date: 02/29/16 20:28:00 CDT Calcium 2016-0 No 1,000 mL, Memor ia Chloride 4-21 1,000 l 0.0014 01:28: ml/hr, Syed MEQ/ML / 00 Infuse Potassium Over: 1 Chloride hr, Route: 0.004 IV, 1,000, MEQ/ML / Drug form: Sodium INJ, ONCE, Chloride Priority: 0.103 STAT, MEQ/ML / Dosing Sodium Weight Lactate 56.818 kg, 0.028 Start MEQ/ML date: Injectable 02/29/16 Solution 20:28:00 CDT, Duration: 1 doses or times, Stop date: 02/29/16 20:28:00 CDT Calcium 2016-0 No 1,000 mL, Memor ia Chloride 4-21 1,000 l 0.0014 01:28: ml/hr, Syed MEQ/ML / 00 Infuse Potassium Over: 1 Chloride hr, Route: 0.004 IV, 1,000, MEQ/ML / Drug form: Sodium INJ, ONCE, Chloride Priority: 0.103 STAT, MEQ/ML / Dosing Sodium Weight Lactate 56.818 kg, 0.028 Start MEQ/ML date: Injectable 02/29/16 Solution 20:28:00 CDT, Duration: 1 doses or times, Stop date: 02/29/16 20:28:00 CDT Calcium 2016-0 No 1,000 mL, Memor ia Chloride 4-21 1,000 l 0.0014 01:28: ml/hr, Constantia MEQ/ML / 00 Infuse Potassium Over: 1 Chloride hr, Route: 0.004 IV, 1,000, MEQ/ML / Drug form: Sodium INJ, ONCE, Chloride Priority: 0.103 STAT, MEQ/ML / Dosing Sodium Weight Lactate 56.818 kg, 0.028 Start MEQ/ML date: Injectable 02/29/16 Solution 20:28:00 CDT, Duration: 1 doses or times, Stop date: 02/29/16 20:28:00 CDT Calcium 2016-0 No 1,000 mL, Memor ia Chloride 4-21 1,000 l 0.0014 01:28: ml/hr, Constantia MEQ/ML / 00 Infuse Potassium Over: 1 Chloride hr, Route: 0.004 IV, 1,000, MEQ/ML / Drug form: Sodium INJ, ONCE, Chloride Priority: 0.103 STAT, MEQ/ML / Dosing Sodium Weight Lactate 56.818 kg, 0.028 Start MEQ/ML date: Injectable 02/29/16 Solution 20:28:00 CDT, Duration: 1 doses or times, Stop date: 02/29/16 20:28:00 CDT Calcium 2016-0 No 1,000 mL, Memor ia Chloride 4-21 1,000 l 0.0014 01:28: ml/hr, Syed MEQ/ML / 00 Infuse Potassium Over: 1 Chloride hr, Route: 0.004 IV, 1,000, MEQ/ML / Drug form: Sodium INJ, ONCE, Chloride Priority: 0.103 STAT, MEQ/ML / Dosing Sodium Weight Lactate 56.818 kg, 0.028 Start MEQ/ML date: Injectable 02/29/16 Solution 20:28:00 CDT, Duration: 1 doses or times, Stop date: 02/29/16 20:28:00 CDT Calcium 2016-0 No 1,000 mL, Memor ia Chloride 4-21 1,000 l 0.0014 01:28: ml/hr, Syed MEQ/ML / 00 Infuse Potassium Over: 1 Chloride hr, Route: 0.004 IV, 1,000, MEQ/ML / Drug form: Sodium INJ, ONCE, Chloride Priority: 0.103 STAT, MEQ/ML / Dosing Sodium Weight Lactate 56.818 kg, 0.028 Start MEQ/ML date: Injectable 02/29/16 Solution 20:28:00 CDT, Duration: 1 doses or times, Stop date: 02/29/16 20:28:00 CDT budesonide No Notes: Ervin marybel formoterol 4-20 (Same as: l 80 mcg-4.5 17:00: Symbicort) H ermann mcg/inh 00 WASTE: inhalation Aerosol - aerosol Return to with Pharmacy adapter budesonide- No Notes: Ervin marybel formoterol 4-20 (Same as: l 80 mcg-4.5 17:00: Symbicort) H ermann mcg/inh 00 WASTE: inhalation Aerosol - aerosol Return to with Pharmacy adapter budesonide- No Notes: Ervin marybel formoterol 4-20 (Same as: l 80 mcg-4.5 17:00: Symbicort) H ermann mcg/inh 00 WASTE: inhalation Aerosol - aerosol Return to with Pharmacy adapter budesonide- No Notes: Ervin marybel formoterol 4-20 (Same as: l 80 mcg-4.5 17:00: Symbicort) H ermann mcg/inh 00 WASTE: inhalation Aerosol - aerosol Return to with Pharmacy adapter budesonide- No Notes: Ervin marybel formoterol 4-20 (Same as: l 80 mcg-4.5 17:00: Symbicort) H ermann mcg/inh 00 WASTE: inhalation Aerosol - aerosol Return to with Pharmacy adapter budesonide- No Notes: Ervin marybel formoterol 4-20 (Same as: l 80 mcg-4.5 17:00: Symbicort) H ermann mcg/inh 00 WASTE: inhalation Aerosol - aerosol Return to with Pharmacy adapter budesonide- No Notes: Ervin marybel formoterol 4-20 (Same as: l 80 mcg-4.5 17:00: Symbicort) H ermann mcg/inh 00 WASTE: inhalation Aerosol - aerosol Return to with Pharmacy adapter budesonide- No Notes: Ervin marybel formoterol 4-20 (Same as: l 80 mcg-4.5 17:00: Symbicort) H ermann mcg/inh 00 WASTE: inhalation Aerosol - aerosol Return to with Pharmacy adapter budesonide- No Notes: Ervin marybel formoterol 4-20 (Same as: l 80 mcg-4.5 17:00: Symbicort) H ermann mcg/inh 00 WASTE: inhalation Aerosol - aerosol Return to with Pharmacy adapter budesonide- No Notes: Ervin marybel formoterol 4-20 (Same as: l 80 mcg-4.5 17:00: Symbicort) H ermann mcg/inh 00 WASTE: inhalation Aerosol - aerosol Return to with Pharmacy adapter budesonide- No Notes: Ervin marybel formoterol 4-20 (Same as: l 80 mcg-4.5 17:00: Symbicort) H ermann mcg/inh 00 WASTE: inhalation Aerosol - aerosol Return to with Pharmacy adapter budesonide- No Notes: Ervin marybel formoterol 4-20 (Same as: l 80 mcg-4.5 17:00: Symbicort) H ermann mcg/inh 00 WASTE: inhalation Aerosol - aerosol Return to with Pharmacy adapter Lyrica No 75 mg, Memoria 4-20 Route: PO, l 14:00: Drug form: Syed 00 CAP, BID, Dosing Weight 56.818, kg, Start date: 02/29/16 9:00:00 CDT, Duration: 30 day, Stop date: 03/29/16 17:00:00 CDT Thyroxine No 175 Memoria 4-20 microgram, l 14:00: Route: PO, Constantia 00 Daily, Dosing Weight 56.818, kg, Start date: 02/29/16 9:00:00 CDT, Duration: 30 day, Stop date: 03/29/16 9:00:00 CDT Docusate No Notes: Memoria 4-20 (Same as: l 14:00: Colace) Syed 00 (Do Not Crush) Advair No Notes: Memoria Diskus 100 4-20 (Same as: l mcg-50 mcg 14:00: Advair) Herm chandu inhalation 00 powder Toviaz No 4 mg, Memoria 4-20 Route: PO, l 14:00: Drug form: Syed 00 ERTAB, Daily, Dosing Weight 56.818, kg, Start date: 02/29/16 9:00:00 CDT, Duration: 30 day, Stop date: 03/29/16 9:00:00 CDT Cymbalta No Notes: Memoria 4-20 (Same as: l 14:00: Cymbalta) (Do Not Crush) Calcium No Notes: Memoria Carbonate 4-20 (Same As: l 1250 MG / 14:00: Nirav-D, Herm chandu Cholecalcif 00 OsCal-D, joanie 400 Oyster UNT Calcium) Chewable Tablet Toviaz 4 mg No Toviaz 4 Me moria tablet 4-20 mg tablet, l 14:00: 4 mg, Drug form: MISC, Route: PO, Daily, 02/29/16 9:00:00 CDT, Duration: 30 day, Stop date: 03/29/16 9:00:00 CDT Abilify No Notes: Memoria 4-20 Non-Formul l 14:00: mirna Drug. (Same as: Emma) Lyrica No 75 mg, Memoria 4-20 Route: PO, l 14:00: Drug form: CAP, BID, Dosing Weight 56.818, kg, Start date: 02/29/16 9:00:00 CDT, Duration: 30 day, Stop date: 03/29/16 17:00:00 CDT Thyroxine No 175 Memoria 4-20 microgram, l 14:00: Route: PO, Constantia 00 Daily, Dosing Weight 56.818, kg, Start date: 02/29/16 9:00:00 CDT, Duration: 30 day, Stop date: 03/29/16 9:00:00 CDT Docusate No Notes: Memoria 4-20 (Same as: l 14:00: Colace) (Do Not Crush) Advair No Notes: Memoria Diskus 100 4-20 (Same as: l mcg-50 mcg 14:00: Advair) Herm chandu inhalation 00 powder Toviaz No 4 mg, Memoria 4-20 Route: PO, l 14:00: Drug form: Constantia 00 ERTAB, Daily, Dosing Weight 56.818, kg, Start date: 02/29/16 9:00:00 CDT, Duration: 30 day, Stop date: 03/29/16 9:00:00 CDT Cymbalta No Notes: Memoria 4-20 (Same as: l 14:00: Cymbalta) Constantia (Do Not Crush) Calcium No Notes: Memoria Carbonate 4-20 (Same As: l 1250 MG / 14:00: Nirav-D, Herm chandu Cholecalcif 00 OsCal-D, joanie 400 Oyster UNT Calcium) Chewable Tablet Toviaz 4 mg No Toviaz 4 Me moria tablet 4-20 mg tablet, l 14:00: 4 mg, Drug Syed 00 form: MISC, Route: PO, Daily, 02/29/16 9:00:00 CDT, Duration: 30 day, Stop date: 03/29/16 9:00:00 CDT Abilify No Notes: Memoria 4-20 Non-Formul l 14:00: mirna Drug. Syed 00 (Same as: Abideborahf) Lyrica No 75 mg, Memoria 4-20 Route: PO, l 14:00: Drug form: Syed 00 CAP, BID, Dosing Weight 56.818, kg, Start date: 02/29/16 9:00:00 CDT, Duration: 30 day, Stop date: 03/29/16 17:00:00 CDT Thyroxine No 175 Memoria 4-20 microgram, l 14:00: Route: PO, Syed 00 Daily, Dosing Weight 56.818, kg, Start date: 02/29/16 9:00:00 CDT, Duration: 30 day, Stop date: 03/29/16 9:00:00 CDT Docusate No Notes: Memoria 4-20 (Same as: l 14:00: Colace) Syed 00 (Do Not Crush) Advair No Notes: Memoria Diskus 100 4-20 (Same as: l mcg-50 mcg 14:00: Advair) Herm chandu inhalation 00 powder Toviaz No 4 mg, Memoria 4-20 Route: PO, l 14:00: Drug form: Syed ERTAB, Daily, Dosing Weight 56.818, kg, Start date: 02/29/16 9:00:00 CDT, Duration: 30 day, Stop date: 03/29/16 9:00:00 CDT Cymbalta No Notes: Memoria 4-20 (Same as: l 14:00: Cymbalta) Constantia (Do Not Crush) Calcium No Notes: Memoria Carbonate 4-20 (Same As: l 1250 MG / 14:00: Nirav-D, Herm chandu Cholecalcif 00 OsCal-D, joanie 400 Oyster UNT Calcium) Chewable Tablet Toviaz 4 mg No Toviaz 4 Me moria tablet 4-20 mg tablet, l 14:00: 4 mg, Drug form: MISC, Route: PO, Daily, 02/29/16 9:00:00 CDT, Duration: 30 day, Stop date: 03/29/16 9:00:00 CDT Abimoose No Notes: Memoria 4-20 Non-Formul l 14:00: mirna Drug. (Same as: Alejo) Lyrica No 75 mg, Memoria 4-20 Route: PO, l 14:00: Drug form: Syed 00 CAP, BID, Dosing Weight 56.818, kg, Start date: 02/29/16 9:00:00 CDT, Duration: 30 day, Stop date: 03/29/16 17:00:00 CDT Thyroxine No 175 Memoria 4-20 microgram, l 14:00: Route: PO, Syed 00 Daily, Dosing Weight 56.818, kg, Start date: 02/29/16 9:00:00 CDT, Duration: 30 day, Stop date: 03/29/16 9:00:00 CDT Docusate No Notes: Memoria 4-20 (Same as: l 14:00: Colace) Syed (Do Not Crush) Advair No Notes: Memoria Diskus 100 4-20 (Same as: l mcg-50 mcg 14:00: Advair) Herm chandu inhalation 00 powder Toviaz No 4 mg, Memoria 4-20 Route: PO, l 14:00: Drug form: Syed 00 ERTAB, Daily, Dosing Weight 56.818, kg, Start date: 02/29/16 9:00:00 CDT, Duration: 30 day, Stop date: 03/29/16 9:00:00 CDT Cymbalta No Notes: Memoria 4-20 (Same as: l 14:00: Cymbalta) Constantia (Do Not Crush) Calcium No Notes: Memoria Carbonate 4-20 (Same As: l 1250 MG / 14:00: Nirav-D, Herm chandu Cholecalcif 00 OsCal-D, joanie 400 Oyster UNT Calcium) Chewable Tablet Toviaz 4 mg No Toviaz 4 Me moria tablet 4-20 mg tablet, l 14:00: 4 mg, Drug Syed 00 form: MISC, Route: PO, Daily, 02/29/16 9:00:00 CDT, Duration: 30 day, Stop date: 03/29/16 9:00:00 CDT Abilify No Notes: Memoria 4-20 Non-Formul l 14:00: mirna Drug. Syed 00 (Same as: Alejo) Lyrica No 75 mg, Memoria 4-20 Route: PO, l 14:00: Drug form: Syed 00 CAP, BID, Dosing Weight 56.818, kg, Start date: 02/29/16 9:00:00 CDT, Duration: 30 day, Stop date: 03/29/16 17:00:00 CDT Thyroxine No 175 Memoria 4-20 microgram, l 14:00: Route: PO, Constantia 00 Daily, Dosing Weight 56.818, kg, Start date: 02/29/16 9:00:00 CDT, Duration: 30 day, Stop date: 03/29/16 9:00:00 CDT Docusate No Notes: Memoria 4-20 (Same as: l 14:00: Colace) Constantia (Do Not Crush) Advair No Notes: Memoria Diskus 100 4-20 (Same as: l mcg-50 mcg 14:00: Advair) Herm chandu inhalation 00 powder Toviaz No 4 mg, Memoria 4-20 Route: PO, l 14:00: Drug form: Constantia 00 ERTAB, Daily, Dosing Weight 56.818, kg, Start date: 02/29/16 9:00:00 CDT, Duration: 30 day, Stop date: 03/29/16 9:00:00 CDT Cymbalta No Notes: Memoria 4-20 (Same as: l 14:00: Cymbalta) Syed 00 (Do Not Crush) Calcium No Notes: Memoria Carbonate 4-20 (Same As: l 1250 MG / 14:00: Nirav-D, Herm chandu Cholecalcif 00 OsCal-D, joanie 400 Oyster UNT Calcium) Chewable Tablet Toviaz 4 mg No Toviaz 4 Me moria tablet 4-20 mg tablet, l 14:00: 4 mg, Drug form: MISC, Route: PO, Daily, 02/29/16 9:00:00 CDT, Duration: 30 day, Stop date: 03/29/16 9:00:00 CDT Abilify No Notes: Memoria 4-20 Non-Formul l 14:00: mirna Drug. (Same as: Abilify) Lyrica No 75 mg, Memoria 4-20 Route: PO, l 14:00: Drug form: CAP, BID, Dosing Weight 56.818, kg, Start date: 02/29/16 9:00:00 CDT, Duration: 30 day, Stop date: 03/29/16 17:00:00 CDT Thyroxine No 175 Memoria 4-20 microgram, l 14:00: Route: PO, Constantia 00 Daily, Dosing Weight 56.818, kg, Start date: 02/29/16 9:00:00 CDT, Duration: 30 day, Stop date: 03/29/16 9:00:00 CDT Docusate No Notes: Memoria 4-20 (Same as: l 14:00: Colace) (Do Not Crush) Advair No Notes: Memoria Diskus 100 4-20 (Same as: l mcg-50 mcg 14:00: Advair) Herm chandu inhalation 00 powder Toviaz No 4 mg, Memoria 4-20 Route: PO, l 14:00: Drug form: Constantia ERTAB, Daily, Dosing Weight 56.818, kg, Start date: 02/29/16 9:00:00 CDT, Duration: 30 day, Stop date: 03/29/16 9:00:00 CDT Cymbalta No Notes: Memoria 4-20 (Same as: l 14:00: Cymbalta) Syed (Do Not Crush) Calcium No Notes: Memoria Carbonate 4-20 (Same As: l 1250 MG / 14:00: Nirav-D, Herm chandu Cholecalcif 00 OsCal-D, joanie 400 Oyster UNT Calcium) Chewable Tablet Toviaz 4 mg No Toviaz 4 Me moria tablet 4-20 mg tablet, l 14:00: 4 mg, Drug form: MISC, Route: PO, Daily, 02/29/16 9:00:00 CDT, Duration: 30 day, Stop date: 03/29/16 9:00:00 CDT Abilify No Notes: Memoria 4-20 Non-Formul l 14:00: mirna Drug. (Same as: Alejo) Lyrica No 75 mg, Memoria 4-20 Route: PO, l 14:00: Drug form: CAP, BID, Dosing Weight 56.818, kg, Start date: 02/29/16 9:00:00 CDT, Duration: 30 day, Stop date: 03/29/16 17:00:00 CDT Thyroxine No 175 Memoria 4-20 microgram, l 14:00: Route: PO, Constantia Daily, Dosing Weight 56.818, kg, Start date: 02/29/16 9:00:00 CDT, Duration: 30 day, Stop date: 03/29/16 9:00:00 CDT Docusate No Notes: Memoria 4-20 (Same as: l 14:00: Colace) Constantia 00 (Do Not Crush) Advair No Notes: Memoria Diskus 100 4-20 (Same as: l mcg-50 mcg 14:00: Advair) Herm chandu inhalation 00 powder Toviaz No 4 mg, Memoria 4-20 Route: PO, l 14:00: Drug form: Constantia ERTAB, Daily, Dosing Weight 56.818, kg, Start date: 02/29/16 9:00:00 CDT, Duration: 30 day, Stop date: 03/29/16 9:00:00 CDT Cymbalta No Notes: Memoria 4-20 (Same as: l 14:00: Cymbalta) Syed (Do Not Crush) Calcium No Notes: Memoria Carbonate 4-20 (Same As: l 1250 MG / 14:00: Nirav-D, Herm chandu Cholecalcif 00 OsCal-D, joanie 400 Oyster UNT Calcium) Chewable Tablet Toviaz 4 mg No Toviaz 4 Me moria tablet 4-20 mg tablet, l 14:00: 4 mg, Drug form: MISC, Route: PO, Daily, 02/29/16 9:00:00 CDT, Duration: 30 day, Stop date: 03/29/16 9:00:00 CDT Abilify No Notes: Memoria 4-20 Non-Formul l 14:00: mirna Drug. (Same as: Elizabeth) Lyrica No 75 mg, Memoria 4-20 Route: PO, l 14:00: Drug form: Constantia CAP, BID, Dosing Weight 56.818, kg, Start date: 02/29/16 9:00:00 CDT, Duration: 30 day, Stop date: 03/29/16 17:00:00 CDT Thyroxine No 175 Memoria 4-20 microgram, l 14:00: Route: PO, Syed 00 Daily, Dosing Weight 56.818, kg, Start date: 02/29/16 9:00:00 CDT, Duration: 30 day, Stop date: 03/29/16 9:00:00 CDT Docusate No Notes: Memoria 4-20 (Same as: l 14:00: Colace) Syed 00 (Do Not Crush) Advair No Notes: Memoria Diskus 100 4-20 (Same as: l mcg-50 mcg 14:00: Advair) Herm chandu inhalation 00 powder Toviaz No 4 mg, Memoria 4-20 Route: PO, l 14:00: Drug form: Constantia ERTAB, Daily, Dosing Weight 56.818, kg, Start date: 02/29/16 9:00:00 CDT, Duration: 30 day, Stop date: 03/29/16 9:00:00 CDT Cymbalta No Notes: Memoria 4-20 (Same as: l 14:00: Cymbalta) Syed (Do Not Crush) Calcium No Notes: Memoria Carbonate 4-20 (Same As: l 1250 MG / 14:00: Nirav-D, Herm chandu Cholecalcif 00 OsCal-D, joanie 400 Oyster UNT Calcium) Chewable Tablet Toviaz 4 mg No Toviaz 4 Me moria tablet 4-20 mg tablet, l 14:00: 4 mg, Drug form: MISC, Route: PO, Daily, 02/29/16 9:00:00 CDT, Duration: 30 day, Stop date: 03/29/16 9:00:00 CDT Abilify No Notes: Memoria 4-20 Non-Formul l 14:00: mirna Drug. Constantia (Same as: Alejo) Lyrica No 75 mg, Memoria 4-20 Route: PO, l 14:00: Drug form: Constantia CAP, BID, Dosing Weight 56.818, kg, Start date: 02/29/16 9:00:00 CDT, Duration: 30 day, Stop date: 03/29/16 17:00:00 CDT Thyroxine No 175 Memoria 4-20 microgram, l 14:00: Route: PO, Constantia 00 Daily, Dosing Weight 56.818, kg, Start date: 02/29/16 9:00:00 CDT, Duration: 30 day, Stop date: 03/29/16 9:00:00 CDT Docusate No Notes: Memoria 4-20 (Same as: l 14:00: Colace) Syed 00 (Do Not Crush) Advair No Notes: Memoria Diskus 100 4-20 (Same as: l mcg-50 mcg 14:00: Advair) Herm chandu inhalation 00 powder Toviaz No 4 mg, Memoria 4-20 Route: PO, l 14:00: Drug form: Constantia ERTAB, Daily, Dosing Weight 56.818, kg, Start date: 02/29/16 9:00:00 CDT, Duration: 30 day, Stop date: 03/29/16 9:00:00 CDT Cymbalta No Notes: Memoria 4-20 (Same as: l 14:00: Cymbalta) Syed (Do Not Crush) Calcium No Notes: Memoria Carbonate 4-20 (Same As: l 1250 MG / 14:00: Nirav-D, Herm chandu Cholecalcif 00 OsCal-D, joanie 400 Oyster UNT Calcium) Chewable Tablet Toviaz 4 mg No Toviaz 4 Me moria tablet 4-20 mg tablet, l 14:00: 4 mg, Drug form: MISC, Route: PO, Daily, 02/29/16 9:00:00 CDT, Duration: 30 day, Stop date: 03/29/16 9:00:00 CDT Abilify No Notes: Memoria 4-20 Non-Formul l 14:00: mirna Drug. Constantia 00 (Same as: Alejo) Lyrica No 75 mg, Memoria 4-20 Route: PO, l 14:00: Drug form: CAP, BID, Dosing Weight 56.818, kg, Start date: 02/29/16 9:00:00 CDT, Duration: 30 day, Stop date: 03/29/16 17:00:00 CDT Thyroxine No 175 Memoria 4-20 microgram, l 14:00: Route: PO, Constantia 00 Daily, Dosing Weight 56.818, kg, Start date: 02/29/16 9:00:00 CDT, Duration: 30 day, Stop date: 03/29/16 9:00:00 CDT Docusate No Notes: Memoria 4-20 (Same as: l 14:00: Colace) Constantia 00 (Do Not Crush) Advair No Notes: Memoria Diskus 100 4-20 (Same as: l mcg-50 mcg 14:00: Advair) Herm chandu inhalation 00 powder Toviaz No 4 mg, Memoria 4-20 Route: PO, l 14:00: Drug form: Constantia ERTAB, Daily, Dosing Weight 56.818, kg, Start date: 02/29/16 9:00:00 CDT, Duration: 30 day, Stop date: 03/29/16 9:00:00 CDT Cymbalta No Notes: Memoria 4-20 (Same as: l 14:00: Cymbalta) Constantia (Do Not Crush) Calcium No Notes: Memoria Carbonate 4-20 (Same As: l 1250 MG / 14:00: Nirav-D, Herm chandu Cholecalcif 00 OsCal-D, joanie 400 Oyster UNT Calcium) Chewable Tablet Toviaz 4 mg No Toviaz 4 Me moria tablet 4-20 mg tablet, l 14:00: 4 mg, Drug form: MISC, Route: PO, Daily, 02/29/16 9:00:00 CDT, Duration: 30 day, Stop date: 03/29/16 9:00:00 CDT Abilify No Notes: Memoria 4-20 Non-Formul l 14:00: mirna Drug. Constantia 00 (Same as: Abideborah) Lyrica No 75 mg, Memoria 4-20 Route: PO, l 14:00: Drug form: Syed 00 CAP, BID, Dosing Weight 56.818, kg, Start date: 02/29/16 9:00:00 CDT, Duration: 30 day, Stop date: 03/29/16 17:00:00 CDT Thyroxine No 175 Memoria 4-20 microgram, l 14:00: Route: PO, Constantia 00 Daily, Dosing Weight 56.818, kg, Start date: 02/29/16 9:00:00 CDT, Duration: 30 day, Stop date: 03/29/16 9:00:00 CDT Docusate No Notes: Memoria 4-20 (Same as: l 14:00: Colace) Constantia (Do Not Crush) Advair No Notes: Memoria Diskus 100 4-20 (Same as: l mcg-50 mcg 14:00: Advair) Herm chandu inhalation 00 powder Toviaz No 4 mg, Memoria 4-20 Route: PO, l 14:00: Drug form: Constantia ERTAB, Daily, Dosing Weight 56.818, kg, Start date: 02/29/16 9:00:00 CDT, Duration: 30 day, Stop date: 03/29/16 9:00:00 CDT Cymbalta No Notes: Memoria 4-20 (Same as: l 14:00: Cymbalta) Syed (Do Not Crush) Calcium No Notes: Memoria Carbonate 4-20 (Same As: l 1250 MG / 14:00: Nirav-D, Herm chandu Cholecalcif 00 OsCal-D, joanie 400 Oyster UNT Calcium) Chewable Tablet Toviaz 4 mg No Toviaz 4 Me moria tablet 4-20 mg tablet, l 14:00: 4 mg, Drug Syed 00 form: MISC, Route: PO, Daily, 02/29/16 9:00:00 CDT, Duration: 30 day, Stop date: 03/29/16 9:00:00 CDT Abilify No Notes: Memoria 4-20 Non-Formul l 14:00: mirna Drug. Syed 00 (Same as: Emma) Lyrica No 75 mg, Memoria 4-20 Route: PO, l 14:00: Drug form: Syed 00 CAP, BID, Dosing Weight 56.818, kg, Start date: 02/29/16 9:00:00 CDT, Duration: 30 day, Stop date: 03/29/16 17:00:00 CDT Thyroxine No 175 Memoria 4-20 microgram, l 14:00: Route: PO, Constantia 00 Daily, Dosing Weight 56.818, kg, Start date: 02/29/16 9:00:00 CDT, Duration: 30 day, Stop date: 03/29/16 9:00:00 CDT Docusate No Notes: Memoria 4-20 (Same as: l 14:00: Colace) Constantia 00 (Do Not Crush) Advair No Notes: Memoria Diskus 100 4-20 (Same as: l mcg-50 mcg 14:00: Advair) Herm chandu inhalation 00 powder Toviaz No 4 mg, Memoria 4-20 Route: PO, l 14:00: Drug form: Constantia 00 ERTAB, Daily, Dosing Weight 56.818, kg, Start date: 02/29/16 9:00:00 CDT, Duration: 30 day, Stop date: 03/29/16 9:00:00 CDT Cymbalta No Notes: Memoria 4-20 (Same as: l 14:00: Cymbalta) Syed (Do Not Crush) Calcium No Notes: Memoria Carbonate 4-20 (Same As: l 1250 MG / 14:00: Nirav-D, Herm chandu Cholecalcif 00 OsCal-D, joanie 400 Oyster UNT Calcium) Chewable Tablet Toviaz 4 mg No Toviaz 4 Me moria tablet 4-20 mg tablet, l 14:00: 4 mg, Drug Constantia form: MISC, Route: PO, Daily, 02/29/16 9:00:00 CDT, Duration: 30 day, Stop date: 03/29/16 9:00:00 CDT Abilify No Notes: Memoria 4-20 Non-Formul l 14:00: mirna Drug. Constantia (Same as: Abilify) Albuterol No Notes: SEE Me moria 0.83 MG/ML 4-20 RT l Inhalant 13:22: DOCUMENTAT Her feng Solution 00 ION (Same as: Proventil) Albuterol No Notes: SEE Me moria 0.83 MG/ML 4-20 RT l Inhalant 13:22: DOCUMENTAT Her feng Solution 00 ION (Same as: Proventil) Albuterol No Notes: SEE Me moria 0.83 MG/ML 4-20 RT l Inhalant 13:22: DOCUMENTAT Her feng Solution 00 ION (Same as: Proventil) Albuterol No Notes: SEE Me moria 0.83 MG/ML 4-20 RT l Inhalant 13:22: DOCUMENTAT Her feng Solution 00 ION (Same as: Proventil) Albuterol No Notes: SEE Me moria 0.83 MG/ML 4-20 RT l Inhalant 13:22: DOCUMENTAT Her feng Solution 00 ION (Same as: Proventil) Albuterol No Notes: SEE Me moria 0.83 MG/ML 4-20 RT l Inhalant 13:22: DOCUMENTAT Her feng Solution 00 ION (Same as: Proventil) Albuterol No Notes: SEE Me moria 0.83 MG/ML 4-20 RT l Inhalant 13:22: DOCUMENTAT Her feng Solution 00 ION (Same as: Proventil) Albuterol No Notes: SEE Me moria 0.83 MG/ML 4-20 RT l Inhalant 13:22: DOCUMENTAT Her feng Solution 00 ION (Same as: Proventil) Albuterol No Notes: SEE Me moria 0.83 MG/ML 4-20 RT l Inhalant 13:22: DOCUMENTAT Her feng Solution 00 ION (Same as: Proventil) Albuterol No Notes: SEE Me moria 0.83 MG/ML 4-20 RT l Inhalant 13:22: DOCUMENTAT Her feng Solution 00 ION (Same as: Proventil) Albuterol No Notes: SEE Me moria 0.83 MG/ML 4-20 RT l Inhalant 13:22: DOCUMENTAT Her feng Solution 00 ION (Same as: Proventil) Albuterol No Notes: SEE Me moria 0.83 MG/ML 4-20 RT l Inhalant 13:22: DOCUMENTAT Her feng Solution 00 ION (Same as: Proventil) NS 1,000 mL No 1,000 mL, M emoria 02-28 Rate: 100 l 12:36: ml/hr, Syed 00 Infuse over: 10 hr, Route: IV, Dosing Weight 56.818 kg, Total Volume: 1,000, Start date: 02/29/16 7:36:00 CDT, Duration: 30 day, Stop date: 03/30/16 7:35:00 CDT Sodium 2016-0 No 250 mL, Memoria Chloride 4-20 250 ml/hr, l 0.154 12:36: Infuse Syed MEQ/ML 00 Over: 1 Injectable hr, Route: Solution IV, 250, Drug form: INJ, ONCE, Priority: STAT, Dosing Weight 56.818 kg, Start date: 02/29/16 7:36:00 CDT, Duration: 1 doses or times, Stop date: 02/29/16 7:36:00 CDT NS 1,000 mL 2016-0 No 1,000 mL, M emoria 4-20 Rate: 100 l 12:36: ml/hr, Syed 00 Infuse over: 10 hr, Route: IV, Dosing Weight 56.818 kg, Total Volume: 1,000, Start date: 02/29/16 7:36:00 CDT, Duration: 30 day, Stop date: 03/30/16 7:35:00 CDT Sodium 2016-0 No 250 mL, Memoria Chloride 4-20 250 ml/hr, l 0.154 12:36: Infuse Syed MEQ/ML 00 Over: 1 Injectable hr, Route: Solution IV, 250, Drug form: INJ, ONCE, Priority: STAT, Dosing Weight 56.818 kg, Start date: 02/29/16 7:36:00 CDT, Duration: 1 doses or times, Stop date: 02/29/16 7:36:00 CDT NS 1,000 mL 2016-0 No 1,000 mL, M emoria 4-20 Rate: 100 l 12:36: ml/hr, Syed 00 Infuse over: 10 hr, Route: IV, Dosing Weight 56.818 kg, Total Volume: 1,000, Start date: 02/29/16 7:36:00 CDT, Duration: 30 day, Stop date: 03/30/16 7:35:00 CDT Sodium 2016-0 No 250 mL, Memoria Chloride 4-20 250 ml/hr, l 0.154 12:36: Infuse Syed MEQ/ML 00 Over: 1 Injectable hr, Route: Solution IV, 250, Drug form: INJ, ONCE, Priority: STAT, Dosing Weight 56.818 kg, Start date: 02/29/16 7:36:00 CDT, Duration: 1 doses or times, Stop date: 02/29/16 7:36:00 CDT NS 1,000 mL 2016-0 No 1,000 mL, M emoria 4-20 Rate: 100 l 12:36: ml/hr, Constantia 00 Infuse over: 10 hr, Route: IV, Dosing Weight 56.818 kg, Total Volume: 1,000, Start date: 02/29/16 7:36:00 CDT, Duration: 30 day, Stop date: 03/30/16 7:35:00 CDT Sodium 2016-0 No 250 mL, Memoria Chloride 4-20 250 ml/hr, l 0.154 12:36: Infuse Syed MEQ/ML 00 Over: 1 Injectable hr, Route: Solution IV, 250, Drug form: INJ, ONCE, Priority: STAT, Dosing Weight 56.818 kg, Start date: 02/29/16 7:36:00 CDT, Duration: 1 doses or times, Stop date: 02/29/16 7:36:00 CDT NS 1,000 mL 2016-0 No 1,000 mL, M emoria 4-20 Rate: 100 l 12:36: ml/hr, Constantia 00 Infuse over: 10 hr, Route: IV, Dosing Weight 56.818 kg, Total Volume: 1,000, Start date: 02/29/16 7:36:00 CDT, Duration: 30 day, Stop date: 03/30/16 7:35:00 CDT Sodium 2016-0 No 250 mL, Memoria Chloride 4-20 250 ml/hr, l 0.154 12:36: Infuse Syed MEQ/ML 00 Over: 1 Injectable hr, Route: Solution IV, 250, Drug form: INJ, ONCE, Priority: STAT, Dosing Weight 56.818 kg, Start date: 02/29/16 7:36:00 CDT, Duration: 1 doses or times, Stop date: 02/29/16 7:36:00 CDT NS 1,000 mL 2016-0 No 1,000 mL, M emoria 4-20 Rate: 100 l 12:36: ml/hr, Syed 00 Infuse over: 10 hr, Route: IV, Dosing Weight 56.818 kg, Total Volume: 1,000, Start date: 02/29/16 7:36:00 CDT, Duration: 30 day, Stop date: 03/30/16 7:35:00 CDT Sodium 2016-0 No 250 mL, Memoria Chloride 4-20 250 ml/hr, l 0.154 12:36: Infuse Syed MEQ/ML 00 Over: 1 Injectable hr, Route: Solution IV, 250, Drug form: INJ, ONCE, Priority: STAT, Dosing Weight 56.818 kg, Start date: 02/29/16 7:36:00 CDT, Duration: 1 doses or times, Stop date: 02/29/16 7:36:00 CDT NS 1,000 mL 2016-0 No 1,000 mL, M emoria 420 Rate: 100 l 12:36: ml/hr, Syed 00 Infuse over: 10 hr, Route: IV, Dosing Weight 56.818 kg, Total Volume: 1,000, Start date: 02/29/16 7:36:00 CDT, Duration: 30 day, Stop date: 03/30/16 7:35:00 CDT Sodium 2016-0 No 250 mL, Memoria Chloride 4-20 250 ml/hr, l 0.154 12:36: Infuse Constantia MEQ/ML 00 Over: 1 Injectable hr, Route: Solution IV, 250, Drug form: INJ, ONCE, Priority: STAT, Dosing Weight 56.818 kg, Start date: 02/29/16 7:36:00 CDT, Duration: 1 doses or times, Stop date: 02/29/16 7:36:00 CDT NS 1,000 mL 2016-0 No 1,000 mL, M emoria 420 Rate: 100 l 12:36: ml/hr, Syed 00 Infuse over: 10 hr, Route: IV, Dosing Weight 56.818 kg, Total Volume: 1,000, Start date: 02/29/16 7:36:00 CDT, Duration: 30 day, Stop date: 03/30/16 7:35:00 CDT Sodium 2016-0 No 250 mL, Memoria Chloride 4-20 250 ml/hr, l 0.154 12:36: Infuse Syed MEQ/ML 00 Over: 1 Injectable hr, Route: Solution IV, 250, Drug form: INJ, ONCE, Priority: STAT, Dosing Weight 56.818 kg, Start date: 02/29/16 7:36:00 CDT, Duration: 1 doses or times, Stop date: 02/29/16 7:36:00 CDT NS 1,000 mL 2016-0 No 1,000 mL, M emoria 4-20 Rate: 100 l 12:36: ml/hr, Syed 00 Infuse over: 10 hr, Route: IV, Dosing Weight 56.818 kg, Total Volume: 1,000, Start date: 02/29/16 7:36:00 CDT, Duration: 30 day, Stop date: 03/30/16 7:35:00 CDT Sodium 2016-0 No 250 mL, Memoria Chloride 4-20 250 ml/hr, l 0.154 12:36: Infuse Syed MEQ/ML 00 Over: 1 Injectable hr, Route: Solution IV, 250, Drug form: INJ, ONCE, Priority: STAT, Dosing Weight 56.818 kg, Start date: 02/29/16 7:36:00 CDT, Duration: 1 doses or times, Stop date: 02/29/16 7:36:00 CDT NS 1,000 mL 2016-0 No 1,000 mL, M emoria 420 Rate: 100 l 12:36: ml/hr, Constantia 00 Infuse over: 10 hr, Route: IV, Dosing Weight 56.818 kg, Total Volume: 1,000, Start date: 02/29/16 7:36:00 CDT, Duration: 30 day, Stop date: 03/30/16 7:35:00 CDT Sodium 2016-0 No 250 mL, Memoria Chloride 4-20 250 ml/hr, l 0.154 12:36: Infuse Constantia MEQ/ML 00 Over: 1 Injectable hr, Route: Solution IV, 250, Drug form: INJ, ONCE, Priority: STAT, Dosing Weight 56.818 kg, Start date: 02/29/16 7:36:00 CDT, Duration: 1 doses or times, Stop date: 02/29/16 7:36:00 CDT NS 1,000 mL 2016-0 No 1,000 mL, M emoria 4-20 Rate: 100 l 12:36: ml/hr, Syed 00 Infuse over: 10 hr, Route: IV, Dosing Weight 56.818 kg, Total Volume: 1,000, Start date: 02/29/16 7:36:00 CDT, Duration: 30 day, Stop date: 03/30/16 7:35:00 CDT Sodium 2016-0 No 250 mL, Memoria Chloride 4-20 250 ml/hr, l 0.154 12:36: Infuse Syed MEQ/ML 00 Over: 1 Injectable hr, Route: Solution IV, 250, Drug form: INJ, ONCE, Priority: STAT, Dosing Weight 56.818 kg, Start date: 02/29/16 7:36:00 CDT, Duration: 1 doses or times, Stop date: 02/29/16 7:36:00 CDT NS 1,000 mL No 1,000 mL, M emoria 4-20 Rate: 100 l 12:36: ml/hr, Infuse over: 10 hr, Route: IV, Dosing Weight 56.818 kg, Total Volume: 1,000, Start date: 02/29/16 7:36:00 CDT, Duration: 30 day, Stop date: 03/30/16 7:35:00 CDT Sodium 2015-0 No 250 mL, Memoria Chloride 4-20 250 ml/hr, l 0.154 12:36: Infuse Constantia MEQ/ML 00 Over: 1 Injectable hr, Route: Solution IV, 250, Drug form: INJ, ONCE, Priority: STAT, Dosing Weight 56.818 kg, Start date: 02/29/16 7:36:00 CDT, Duration: 1 doses or times, Stop date: 02/29/16 7:36:00 CDT Acetaminoph No Notes: Max Memoria en 4-20 acetaminop l 08:00: hen 4000 mg/day (4 gm/day). (Same as: Tylenol Extra Strength) pregabalin No Notes: Memor ia 4-20 (Same as: l 08:00: Lyrica) Syed 00 celecoxib No Notes: Memori a 4-20 NSAID. l 08:00: Please Syed 00 check indication . Not for seizure. (Same As: CeleBREX) Tramadol No Notes: Not Mem oria 4-20 to exceed l 08:00: 400mg/day. Syed 00 (Same As: Ultram) Lovenox 0 No Notes: Memoria 4-20 (Same as: l 08:00: Lovenox) Acetaminoph No Notes: Max Memoria en 4-20 acetaminop l 08:00: hen 4000 Constantia 00 mg/day (4 gm/day). (Same as: Tylenol Extra Strength) pregabalin No Notes: Memor ia 4-20 (Same as: l 08:00: Lyrica) celecoxib No Notes: Memori a 4-20 NSAID. l 08:00: Please Syed 00 check indication . Not for seizure. (Same As: CeleBREX) Tramadol No Notes: Not Mem oria 4-20 to exceed l 08:00: 400mg/day. Constantia 00 (Same As: Ultram) Lovenox No Notes: Memoria 4-20 (Same as: l 08:00: Lovenox) Acetaminoph No Notes: Max Memoria en 4-20 acetaminop l 08:00: hen 4000 Constantia 00 mg/day (4 gm/day). (Same as: Tylenol Extra Strength) pregabalin No Notes: Memor ia 4-20 (Same as: l 08:00: Lyrica) celecoxib No Notes: Memori a 4-20 NSAID. l 08:00: Please Syed 00 check indication . Not for seizure. (Same As: CeleBREX) Tramadol 0 No Notes: Not Mem oria 4-20 to exceed l 08:00: 400mg/day. Constantia 00 (Same As: Ultram) Lovenox 0 No Notes: Memoria 4-20 (Same as: l 08:00: Lovenox) Constantia Acetaminoph 0 No Notes: Max Memoria en 4-20 acetaminop l 08:00: hen 4000 Syed 00 mg/day (4 gm/day). (Same as: Tylenol Extra Strength) pregabalin 0 No Notes: Memor ia 4-20 (Same as: l 08:00: Lyrica) Syed celecoxib No Notes: Memori a 4-20 NSAID. l 08:00: Please Constantia 00 check indication . Not for seizure. (Same As: CeleBREX) Tramadol No Notes: Not Mem oria 4-20 to exceed l 08:00: 400mg/day. Constantia 00 (Same As: Ultram) Lovenox No Notes: Memoria 4-20 (Same as: l 08:00: Lovenox) Constantia 00 Acetaminoph No Notes: Max Memoria en 4-20 acetaminop l 08:00: hen 4000 Syed 00 mg/day (4 gm/day). (Same as: Tylenol Extra Strength) pregabalin No Notes: Memor ia 4-20 (Same as: l 08:00: Lyrica) celecoxib No Notes: Memori a 4-20 NSAID. l 08:00: Please Constantia 00 check indication . Not for seizure. (Same As: CeleBREX) Tramadol No Notes: Not Mem oria 4-20 to exceed l 08:00: 400mg/day. Syed 00 (Same As: Ultram) Lovenox No Notes: Memoria 4-20 (Same as: l 08:00: Lovenox) Acetaminoph No Notes: Max Memoria en 4-20 acetaminop l 08:00: hen 4000 Syed 00 mg/day (4 gm/day). (Same as: Tylenol Extra Strength) pregabalin No Notes: Memor ia 4-20 (Same as: l 08:00: Lyrica) celecoxib No Notes: Memori a 4-20 NSAID. l 08:00: Please Syed 00 check indication . Not for seizure. (Same As: CeleBREX) Tramadol No Notes: Not Mem oria 4-20 to exceed l 08:00: 400mg/day. Constantia 00 (Same As: Ultram) Lovenox 0 No Notes: Memoria 4-20 (Same as: l 08:00: Lovenox) Constantia Acetaminoph No Notes: Max Memoria en 4-20 acetaminop l 08:00: hen 4000 Constantia 00 mg/day (4 gm/day). (Same as: Tylenol Extra Strength) pregabalin No Notes: Memor ia 4-20 (Same as: l 08:00: Lyrica) Constantia 00 celecoxib 0 No Notes: Memori a 4-20 NSAID. l 08:00: Please Syed 00 check indication . Not for seizure. (Same As: CeleBREX) Tramadol No Notes: Not Mem oria 4-20 to exceed l 08:00: 400mg/day. Constantia 00 (Same As: Ultram) Lovenox 0 No Notes: Memoria 4-20 (Same as: l 08:00: Lovenox) Syed Acetaminoph No Notes: Max Memoria en 4-20 acetaminop l 08:00: hen 4000 Syed 00 mg/day (4 gm/day). (Same as: Tylenol Extra Strength) pregabalin No Notes: Memor ia 4-20 (Same as: l 08:00: Lyrica) Syed 00 celecoxib 0 No Notes: Memori a 4-20 NSAID. l 08:00: Please Constantia 00 check indication . Not for seizure. (Same As: CeleBREX) Tramadol 0 No Notes: Not Mem oria 4-20 to exceed l 08:00: 400mg/day. Syed 00 (Same As: Ultram) Lovenox 0 No Notes: Memoria 4-20 (Same as: l 08:00: Lovenox) Constantia 00 Acetaminoph No Notes: Max Memoria en 4-20 acetaminop l 08:00: hen 4000 Syed 00 mg/day (4 gm/day). (Same as: Tylenol Extra Strength) pregabalin 0 No Notes: Memor ia 4-20 (Same as: l 08:00: Lyrica) Syed celecoxib 0 No Notes: Memori a 4-20 NSAID. l 08:00: Please Syed 00 check indication . Not for seizure. (Same As: CeleBREX) Tramadol 0 No Notes: Not Mem oria 4-20 to exceed l 08:00: 400mg/day. Constantia 00 (Same As: Ultram) Lovenox 0 No Notes: Memoria 4-20 (Same as: l 08:00: Lovenox) Constantia Acetaminoph No Notes: Max Memoria en 4-20 acetaminop l 08:00: hen 4000 Syed 00 mg/day (4 gm/day). (Same as: Tylenol Extra Strength) pregabalin No Notes: Memor ia 4-20 (Same as: l 08:00: Lyrica) Constantia celecoxib No Notes: Memori a 4-20 NSAID. l 08:00: Please Syed 00 check indication . Not for seizure. (Same As: CeleBREX) Tramadol No Notes: Not Mem oria 4-20 to exceed l 08:00: 400mg/day. Constantia 00 (Same As: Ultram) Lovenox No Notes: Memoria 4-20 (Same as: l 08:00: Lovenox) Constantia 00 Acetaminoph No Notes: Max Memoria en 4-20 acetaminop l 08:00: hen 4000 Constantia 00 mg/day (4 gm/day). (Same as: Tylenol Extra Strength) pregabalin No Notes: Memor ia 4-20 (Same as: l 08:00: Lyrica) Constantia 00 celecoxib No Notes: Memori a 4-20 NSAID. l 08:00: Please Constantia 00 check indication . Not for seizure. (Same As: CeleBREX) Tramadol No Notes: Not Mem oria 4-20 to exceed l 08:00: 400mg/day. Constantia 00 (Same As: Ultram) Lovenox 0 No Notes: Memoria 4-20 (Same as: l 08:00: Lovenox) Constantia 00 Acetaminoph No Notes: Max Memoria en 4-20 acetaminop l 08:00: hen 4000 Constantia 00 mg/day (4 gm/day). (Same as: Tylenol Extra Strength) pregabalin No Notes: Memor ia 4-20 (Same as: l 08:00: Lyrica) Syed celecoxib 0 No Notes: Memori a 4-20 NSAID. l 08:00: Please Constantia 00 check indication . Not for seizure. (Same As: CeleBREX) Tramadol No Notes: Not Mem oria 4-20 to exceed l 08:00: 400mg/day. Constantia 00 (Same As: Ultram) Lovenox No Notes: Memoria 4-20 (Same as: l 08:00: Lovenox) Constantia 00 Sodium No 100 mL, Memoria Chloride 4-20 100 ml/hr, l 0.154 07:41: Infuse Constantia MEQ/ML 00 Over: 1 Injectable hr, Route: Solution IV, ONCE, Priority: STAT, Dosing Weight 56.818 kg, Start date: 02/29/16 2:41:00 CDT, Duration: 1 doses or times, Stop date: 02/29/16 2:41:00 CDT Morphine No Notes: Memoria 4-20 (Same l 07:41: as:MORPhin Constantia 00 e Sulfate) Sodium No 100 mL, Memoria Chloride 4-20 100 ml/hr, l 0.154 07:41: Infuse Syed MEQ/ML 00 Over: 1 Injectable hr, Route: Solution IV, ONCE, Priority: STAT, Dosing Weight 56.818 kg, Start date: 02/29/16 2:41:00 CDT, Duration: 1 doses or times, Stop date: 02/29/16 2:41:00 CDT Morphine No Notes: Memoria 4-20 (Same l 07:41: as:MORPhin Syed 00 e Sulfate) Sodium No 100 mL, Memoria Chloride 4-20 100 ml/hr, l 0.154 07:41: Infuse Constantia MEQ/ML 00 Over: 1 Injectable hr, Route: Solution IV, ONCE, Priority: STAT, Dosing Weight 56.818 kg, Start date: 02/29/16 2:41:00 CDT, Duration: 1 doses or times, Stop date: 02/29/16 2:41:00 CDT Morphine No Notes: Memoria 4-20 (Same l 07:41: as:MORPhin Constantia 00 e Sulfate) Sodium No 100 mL, Memoria Chloride 4-20 100 ml/hr, l 0.154 07:41: Infuse Syed MEQ/ML 00 Over: 1 Injectable hr, Route: Solution IV, ONCE, Priority: STAT, Dosing Weight 56.818 kg, Start date: 02/29/16 2:41:00 CDT, Duration: 1 doses or times, Stop date: 02/29/16 2:41:00 CDT Morphine 2016-0 No Notes: Memoria 4-20 (Same l 07:41: as:MORPhin Syed 00 e Sulfate) Sodium No 100 mL, Memoria Chloride 4-20 100 ml/hr, l 0.154 07:41: Infuse Syed MEQ/ML 00 Over: 1 Injectable hr, Route: Solution IV, ONCE, Priority: STAT, Dosing Weight 56.818 kg, Start date: 02/29/16 2:41:00 CDT, Duration: 1 doses or times, Stop date: 02/29/16 2:41:00 CDT Morphine 2016-0 No Notes: Memoria 4-20 (Same l 07:41: as:MORPhin Syed 00 e Sulfate) Sodium No 100 mL, Memoria Chloride 4-20 100 ml/hr, l 0.154 07:41: Infuse Constantia MEQ/ML 00 Over: 1 Injectable hr, Route: Solution IV, ONCE, Priority: STAT, Dosing Weight 56.818 kg, Start date: 02/29/16 2:41:00 CDT, Duration: 1 doses or times, Stop date: 02/29/16 2:41:00 CDT Morphine 2016-0 No Notes: Memoria 4-20 (Same l 07:41: as:MORPhin Constantia 00 e Sulfate) Sodium No 100 mL, Memoria Chloride 4-20 100 ml/hr, l 0.154 07:41: Infuse Constantia MEQ/ML 00 Over: 1 Injectable hr, Route: Solution IV, ONCE, Priority: STAT, Dosing Weight 56.818 kg, Start date: 02/29/16 2:41:00 CDT, Duration: 1 doses or times, Stop date: 02/29/16 2:41:00 CDT Morphine 2015-0 No Notes: Memoria 4-20 (Same l 07:41: as:MORPhin Constantia 00 e Sulfate) Sodium No 100 mL, [facility] Chloride 4-20 100 ml/hr, l 0.154 07:41: Infuse Syed MEQ/ML 00 Over: 1 Injectable hr, Route: Solution IV, ONCE, Priority: STAT, Dosing Weight 56.818 kg, Start date: 02/29/16 2:41:00 CDT, Duration: 1 doses or times, Stop date: 02/29/16 2:41:00 CDT Morphine 2015-0 No Notes: Memoria 4-20 (Same l 07:41: as:MORPhin Constantia 00 e Sulfate) Sodium 0 No 100 mL, Mem[facility] Chloride 4-20 100 ml/hr, l 0.154 07:41: Infuse Constantia MEQ/ML 00 Over: 1 Injectable hr, Route: Solution IV, ONCE, Priority: STAT, Dosing Weight 56.818 kg, Start date: 02/29/16 2:41:00 CDT, Duration: 1 doses or times, Stop date: 02/29/16 2:41:00 CDT Morphine 2015-0 No Notes: Memoria 4-20 (Same l 07:41: as:MORPhin Constantia 00 e Sulfate) Sodium 0 No 100 mL, [facility] Chloride 4-20 100 ml/hr, l 0.154 07:41: Infuse Constantia MEQ/ML 00 Over: 1 Injectable hr, Route: Solution IV, ONCE, Priority: STAT, Dosing Weight 56.818 kg, Start date: 02/29/16 2:41:00 CDT, Duration: 1 doses or times, Stop date: 02/29/16 2:41:00 CDT Morphine 2016-0 No Notes: Memoria 4-20 (Same l 07:41: as:MORPhin Constantia 00 e Sulfate) Sodium 0 No 100 mL, Mem[facility] Chloride 4-20 100 ml/hr, l 0.154 07:41: Infuse Constantia MEQ/ML 00 Over: 1 Injectable hr, Route: Solution IV, ONCE, Priority: STAT, Dosing Weight 56.818 kg, Start date: 02/29/16 2:41:00 CDT, Duration: 1 doses or times, Stop date: 02/29/16 2:41:00 CDT Morphine 0 No Notes: Memoria 4-20 (Same l 07:41: as:MORPhin Syed 00 e Sulfate) Sodium 0 No 100 mL, [facility] Chloride 4-20 100 ml/hr, l 0.154 07:41: Infuse Constantia MEQ/ML 00 Over: 1 Injectable hr, Route: Solution IV, ONCE, Priority: STAT, Dosing Weight 56.818 kg, Start date: 02/29/16 2:41:00 CDT, Duration: 1 doses or times, Stop date: 02/29/16 2:41:00 CDT Morphine No Notes: [facility] 4-20 (Same l 07:41: as:MORPhin Syed 00 e Sulfate) Melatonin No Notes: Memori a 4-20 (Same as: l 07:25: Melatonin) Syed Al No Notes: Memoria hydroxide/M 4-20 (aluminum l g 07:25: hydroxide- Syed hydroxide/s 00 magnesium imethicone hyd- 200 mg-200 simethicon mg-20 mg/5 e mL oral 400-400-40 suspension mg/5ml 30 ml ud ELVIA) Methocarbam No Notes: Ervin marybel ol 4-20 (Same l 07:25: as:Robaxin Constantia ) Ondansetron No Notes: Ervin marybel 4-20 (Same as: l 07:25: Zofran) Constantia 00 MEDICATION WASTE Product Size: 4 mg Product Wasted: _0__ mg Melatonin No Notes: Memori a 4-20 (Same as: l 07:25: Melatonin) Syed Al No Notes: [facility] hydroxide/M 4-20 (aluminum l g 07:25: hydroxide- Constantia hydroxide/s 00 magnesium imethicone hyd- 200 mg-200 simethicon mg-20 mg/5 e mL oral 400-400-40 suspension mg/5ml 30 ml ud ELVIA) Methocarbam No Notes: Ervin marybel ol 4-20 (Same l 07:25: as:Robaxin Constantia ) Ondansetron No Notes: Ervin marybel 4-20 (Same as: l 07:25: Zofran) Constantia 00 MEDICATION WASTE Product Size: 4 mg Product Wasted: _0__ mg Melatonin No Notes: Memori a 4-20 (Same as: l 07:25: Melatonin) Syed Al No Notes: [facility] hydroxide/M 4-20 (aluminum l g 07:25: hydroxide- Constantia hydroxide/s 00 magnesium imethicone hyd- 200 mg-200 simethicon mg-20 mg/5 e mL oral 400-400-40 suspension mg/5ml 30 ml ud ELVIA) Methocarbam No Notes: Ervin marybel ol 4-20 (Same l 07:25: as:Robaxin Syed ) Ondansetron No Notes: Ervin marybel 4-20 (Same as: l 07:25: Zofran) Constantia 00 MEDICATION WASTE Product Size: 4 mg Product Wasted: _0__ mg Melatonin No Notes: Memori a 4-20 (Same as: l 07:25: Melatonin) No Notes: [facility] hydroxide/M 4-20 (aluminum l g 07:25: hydroxide- Syed hydroxide/s 00 magnesium imethicone hyd- 200 mg-200 simethicon mg-20 mg/5 e mL oral 400-400-40 suspension mg/5ml 30 ml ud ELVIA) Methocarbam No Notes: Ervin marybel ol 4-20 (Same l 07:25: as:Robaxin Constantia ) Ondansetron No Notes: Ervin marybel 4-20 (Same as: l 07:25: Zofran) Syed MEDICATION WASTE Product Size: 4 mg Product Wasted: _0__ mg Melatonin No Notes: Memori a 4-20 (Same as: l 07:25: Melatonin) Syed No Notes: [facility] hydroxide/M 4-20 (aluminum l g 07:25: hydroxide- Constantia hydroxide/s 00 magnesium imethicone hyd- 200 mg-200 simethicon mg-20 mg/5 e mL oral 400-400-40 suspension mg/5ml 30 ml ud ELVIA) Methocarbam No Notes: Ervin marybel ol 4-20 (Same l 07:25: as:Robaxin Syed ) Ondansetron No Notes: Ervin marybel 4-20 (Same as: l 07:25: Zofran) Syed MEDICATION WASTE Product Size: 4 mg Product Wasted: _0__ mg Melatonin No Notes: Memori a 4-20 (Same as: l 07:25: Melatonin) Syed Al No Notes: [facility] hydroxide/M 4-20 (aluminum l g 07:25: hydroxide- Constantia hydroxide/s 00 magnesium imethicone hyd- 200 mg-200 simethicon mg-20 mg/5 e mL oral 400-400-40 suspension mg/5ml 30 ml ud ELVIA) Methocarbam No Notes: Ervin marybel ol 4-20 (Same l 07:25: as:Robaxin Constantia ) Ondansetron No Notes: Ervin marybel 4-20 (Same as: l 07:25: Zofran) MEDICATION WASTE Product Size: 4 mg Product Wasted: _0__ mg Melatonin No Notes: Memori a 4-20 (Same as: l 07:25: Melatonin) No Notes: [facility] hydroxide/M 4-20 (aluminum l g 07:25: hydroxide- Constantia hydroxide/s 00 magnesium imethicone hyd- 200 mg-200 simethicon mg-20 mg/5 e mL oral 400-400-40 suspension mg/5ml 30 ml ud ELVIA) Methocarbam No Notes: Ervin marybel ol 4-20 (Same l 07:25: as:Robaxin Syed ) Ondansetron No Notes: Ervin marybel 4-20 (Same as: l 07:25: Zofran) Constantia 00 MEDICATION WASTE Product Size: 4 mg Product Wasted: _0__ mg Melatonin No Notes: Memori a 4-20 (Same as: l 07:25: Melatonin) Constantia Al No Notes: [facility] hydroxide/M 4-20 (aluminum l g 07:25: hydroxide- Syed hydroxide/s 00 magnesium imethicone hyd- 200 mg-200 simethicon mg-20 mg/5 e mL oral 400-400-40 suspension mg/5ml 30 ml ud ELVIA) Methocarbam No Notes: Ervin marybel ol 4-20 (Same l 07:25: as:Robaxin Constantia 00 ) Ondansetron No Notes: Ervin marybel 4-20 (Same as: l 07:25: Zofran) Syed 00 MEDICATION WASTE Product Size: 4 mg Product Wasted: _0__ mg Melatonin No Notes: Memori a 4-20 (Same as: l 07:25: Melatonin) Constantia Al No Notes: [facility] hydroxide/M 4-20 (aluminum l g 07:25: hydroxide- Constantia hydroxide/s 00 magnesium imethicone hyd- 200 mg-200 simethicon mg-20 mg/5 e mL oral 400-400-40 suspension mg/5ml 30 ml ud ELVIA) Methocarbam No Notes: Ervin marybel ol 4-20 (Same l 07:25: as:Robaxin Syed ) Ondansetron No Notes: Ervin marybel 4-20 (Same as: l 07:25: Zofran) Syed 00 MEDICATION WASTE Product Size: 4 mg Product Wasted: _0__ mg Melatonin No Notes: Memori a 4-20 (Same as: l 07:25: Melatonin) No Notes: [facility] hydroxide/M 4-20 (aluminum l g 07:25: hydroxide- Syed hydroxide/s 00 magnesium imethicone hyd- 200 mg-200 simethicon mg-20 mg/5 e mL oral 400-400-40 suspension mg/5ml 30 ml ud ELVIA) Methocarbam No Notes: Ervin marybel ol 4-20 (Same l 07:25: as:Robaxin Syed 00 ) Ondansetron No Notes: Ervin marybel 4-20 (Same as: l 07:25: Zofran) Constantia 00 MEDICATION WASTE Product Size: 4 mg Product Wasted: _0__ mg Melatonin No Notes: Memori a 4-20 (Same as: l 07:25: Melatonin) Syed Al No Notes: [facility] hydroxide/M 4-20 (aluminum l g 07:25: hydroxide- Constantia hydroxide/s 00 magnesium imethicone hyd- 200 mg-200 simethicon mg-20 mg/5 e mL oral 400-400-40 suspension mg/5ml 30 ml ud ELVIA) Methocarbam No Notes: Ervin marybel ol 4-20 (Same l 07:25: as:Robaxin Syed ) Ondansetron No Notes: Ervin marybel 4-20 (Same as: l 07:25: Zofran) Syed MEDICATION WASTE Product Size: 4 mg Product Wasted: _0__ mg Melatonin No Notes: Memori a 4-20 (Same as: l 07:25: Melatonin) Syed 00 Al No Notes: [facility] hydroxide/M 4-20 (aluminum l g 07:25: hydroxide- Syed hydroxide/s 00 magnesium imethicone hyd- 200 mg-200 simethicon mg-20 mg/5 e mL oral 400-400-40 suspension mg/5ml 30 ml ud ELVIA) Methocarbam No Notes: Ervin marybel ol 4-20 (Same l 07:25: as:Robaxin Syed ) Ondansetron No Notes: Ervin marybel 4-20 (Same as: l 07:25: Zofran) Constantia MEDICATION WASTE Product Size: 4 mg Product Wasted: _0__ mg armodafinil Yes 250 mg = 1 Memoria 250 MG Oral 4-20 tab, PO, l Tablet 07:03: BID, # 30 Johnny n [Nuvigil] 00 tab, 0 Refill(s) 24 HR Yes 4 mg = 1 [facility] Fesoterodin 4-20 tab, PO, l e Fumarate 07:03: Daily, 0 Her feng 4 MG 00 Refill(s) Extended Release Tablet [Toviaz] carvedilol Yes 6.25 mg = Me moria 6.25 MG 4-20 1 tab, PO, l Oral Tablet 07:03: BID, 0 Herm chandu [Coreg] 00 Refill(s) Donepezil Yes 23 mg = 1 Mem oria hydrochlori 4-20 tab, PO, l de 23 MG 07:03: Bedtime, 0 Her feng Oral Tablet 00 Refill(s) [Aricept] pregabalin Yes 75 mg = 1 Me moria 75 MG Oral 4-20 cap, PO, l Capsule 07:03: BID, 0 Constantia [Lyrica] 00 Refill(s) Calcium Yes 1 tab, Memoria 500+D 4-20 CHEW, BID, l 07:03: 0 Constantia 00 Refill(s) clonazePAM Yes 1 mg = 1 Mem oria 1 mg oral 4-20 tab, PO, l tablet 07:03: Bedtime, 0 Allyn nn 00 Refill(s) aripiprazol Yes 5 mg = 1 Me moria e 5 MG Oral 4-20 tab, PO, l Tablet 07:03: Daily, 0 Constantia [Abilify] 00 Refill(s) Cymbalta Yes 90 mg, PO, Mem oria 4-20 Daily, 0 l 07:03: Refill(s) Syed 00 biotin Yes 750 mcg, Memoria 4-20 Daily, 0 l 07:03: Refill(s) Syed 00 Estrogens, Yes 0.625 mg = M emoria Conjugated 4-20 1 tab, PO, l (CARE HOME) 0.625 07:03: Daily, 0 He rmann MG Oral 00 Refill(s) Tablet [Premarin] Thyroxine Yes 175 Memoria 4-20 microgram, l 07:03: Daily, 0 Syed 00 Refill(s) Advair Yes 1 puff, [facility] Diskus 100 4-20 INHALATION l mcg-50 mcg 07:03: , BID, 0 Her feng inhalation 00 Refill(s) powder armodafinil Yes 250 mg = 1 Memoria 250 MG Oral 4-20 tab, PO, l Tablet 07:03: BID, # 30 Johnny n [Nuvigil] 00 tab, 0 Refill(s) 24 HR Yes 4 mg = 1 Mem[facility] Fesoterodin 4-20 tab, PO, l e Fumarate 07:03: Daily, 0 Her feng 4 MG 00 Refill(s) Extended Release Tablet [Toviaz] carvedilol Yes 6.25 mg = Me moria 6.25 MG 4-20 1 tab, PO, l Oral Tablet 07:03: BID, 0 Herm chandu [Coreg] 00 Refill(s) Donepezil Yes 23 mg = 1 Mem oria hydrochlori 4-20 tab, PO, l de 23 MG 07:03: Bedtime, 0 Her feng Oral Tablet 00 Refill(s) [Aricept] pregabalin Yes 75 mg = 1 Me moria 75 MG Oral 4-20 cap, PO, l Capsule 07:03: BID, 0 Constantia [Lyrica] 00 Refill(s) Calcium Yes 1 tab, Memoria 500+D 4-20 CHEW, BID, l 07:03: 0 Constantia 00 Refill(s) clonazePAM Yes 1 mg = 1 Mem oria 1 mg oral 4-20 tab, PO, l tablet 07:03: Bedtime, 0 Allyn nn 00 Refill(s) aripiprazol Yes 5 mg = 1 Me moria e 5 MG Oral 4-20 tab, PO, l Tablet 07:03: Daily, 0 Constantia [Abilify] 00 Refill(s) Cymbalta Yes 90 mg, PO, Mem oria 4-20 Daily, 0 l 07:03: Refill(s) Constantia 00 biotin Yes 750 mcg, Memoria 4-20 Daily, 0 l 07:03: Refill(s) Constantia 00 Estrogens, Yes 0.625 mg = M emoria Conjugated 4-20 1 tab, PO, l (CARE HOME) 0.625 07:03: Daily, 0 He rmann MG Oral 00 Refill(s) Tablet [Premarin] Thyroxine Yes 175 Memoria 4-20 microgram, l 07:03: Daily, 0 Constantia 00 Refill(s) Advair Yes 1 puff, [facility] Diskus 100 4-20 INHALATION l mcg-50 mcg 07:03: , BID, 0 Her feng inhalation 00 Refill(s) powder armodafinil Yes 250 mg = 1 Memoria 250 MG Oral 4-20 tab, PO, l Tablet 07:03: BID, # 30 Johnny n [Nuvigil] 00 tab, 0 Refill(s) 24 HR Yes 4 mg = 1 Mem[facility] Fesoterodin 4-20 tab, PO, l e Fumarate 07:03: Daily, 0 Her feng 4 MG 00 Refill(s) Extended Release Tablet [Toviaz] carvedilol Yes 6.25 mg = Me moria 6.25 MG 4-20 1 tab, PO, l Oral Tablet 07:03: BID, 0 Herm chandu [Coreg] 00 Refill(s) Donepezil Yes 23 mg = 1 Mem oria hydrochlori 4-20 tab, PO, l de 23 MG 07:03: Bedtime, 0 Her feng Oral Tablet 00 Refill(s) [Aricept] pregabalin Yes 75 mg = 1 Me moria 75 MG Oral 4-20 cap, PO, l Capsule 07:03: BID, 0 Constantia [Lyrica] 00 Refill(s) Calcium Yes 1 tab, Memoria 500+D 4-20 CHEW, BID, l 07:03: 0 Syed 00 Refill(s) clonazePAM Yes 1 mg = 1 Mem oria 1 mg oral 4-20 tab, PO, l tablet 07:03: Bedtime, 0 Allyn nn 00 Refill(s) aripiprazol Yes 5 mg = 1 Me moria e 5 MG Oral 4-20 tab, PO, l Tablet 07:03: Daily, 0 Syed [Abilify] 00 Refill(s) Cymbalta Yes 90 mg, PO, Mem oria 4-20 Daily, 0 l 07:03: Refill(s) Syed 00 biotin Yes 750 mcg, Memoria 4-20 Daily, 0 l 07:03: Refill(s) Constantia 00 Estrogens, Yes 0.625 mg = M emoria Conjugated 4-20 1 tab, PO, l (CARE HOME) 0.625 07:03: Daily, 0 He rmann MG Oral 00 Refill(s) Tablet [Premarin] Thyroxine Yes 175 Memoria 4-20 microgram, l 07:03: Daily, 0 Constantia 00 Refill(s) Advair Yes 1 puff, Mem[facility] Diskus 100 4-20 INHALATION l mcg-50 mcg 07:03: , BID, 0 Her feng inhalation 00 Refill(s) powder armodafinil Yes 250 mg = 1 Memoria 250 MG Oral 4-20 tab, PO, l Tablet 07:03: BID, # 30 Johnny n [Nuvigil] 00 tab, 0 Refill(s) 24 HR Yes 4 mg = 1 Memoria Fesoterodin 4-20 tab, PO, l e Fumarate 07:03: Daily, 0 Her feng 4 MG 00 Refill(s) Extended Release Tablet [Toviaz] carvedilol Yes 6.25 mg = Me moria 6.25 MG 4-20 1 tab, PO, l Oral Tablet 07:03: BID, 0 Herm chandu [Coreg] 00 Refill(s) Donepezil Yes 23 mg = 1 Mem oria hydrochlori 4-20 tab, PO, l de 23 MG 07:03: Bedtime, 0 Her feng Oral Tablet 00 Refill(s) [Aricept] pregabalin Yes 75 mg = 1 Me moria 75 MG Oral 4-20 cap, PO, l Capsule 07:03: BID, 0 Syed [Lyrica] 00 Refill(s) Calcium Yes 1 tab, Memoria 500+D 4-20 CHEW, BID, l 07:03: 0 Syed 00 Refill(s) clonazePAM Yes 1 mg = 1 Mem oria 1 mg oral 4-20 tab, PO, l tablet 07:03: Bedtime, 0 Allyn nn 00 Refill(s) aripiprazol Yes 5 mg = 1 Me moria e 5 MG Oral 4-20 tab, PO, l Tablet 07:03: Daily, 0 Constantia [Abilify] 00 Refill(s) Cymbalta Yes 90 mg, PO, Mem oria 4-20 Daily, 0 l 07:03: Refill(s) Constantia 00 biotin Yes 750 mcg, Memoria 4-20 Daily, 0 l 07:03: Refill(s) Syed 00 Estrogens, Yes 0.625 mg = M emoria Conjugated 4-20 1 tab, PO, l (CARE HOME) 0.625 07:03: Daily, 0 He rmann MG Oral 00 Refill(s) Tablet [Premarin] Thyroxine Yes 175 Memoria 4-20 microgram, l 07:03: Daily, 0 Constantia 00 Refill(s) Advair Yes 1 puff, Memoria Diskus 100 4-20 INHALATION l mcg-50 mcg 07:03: , BID, 0 Her feng inhalation 00 Refill(s) powder armodafinil Yes 250 mg = 1 Memoria 250 MG Oral 4-20 tab, PO, l Tablet 07:03: BID, # 30 Johnny n [Nuvigil] 00 tab, 0 Refill(s) 24 HR Yes 4 mg = 1 Memoria Fesoterodin 4-20 tab, PO, l e Fumarate 07:03: Daily, 0 Her feng 4 MG 00 Refill(s) Extended Release Tablet [Toviaz] carvedilol Yes 6.25 mg = Me moria 6.25 MG 4-20 1 tab, PO, l Oral Tablet 07:03: BID, 0 Herm chandu [Coreg] 00 Refill(s) Donepezil Yes 23 mg = 1 Mem oria hydrochlori 4-20 tab, PO, l de 23 MG 07:03: Bedtime, 0 Her feng Oral Tablet 00 Refill(s) [Aricept] pregabalin Yes 75 mg = 1 Me moria 75 MG Oral 4-20 cap, PO, l Capsule 07:03: BID, 0 Syed [Lyrica] 00 Refill(s) Calcium Yes 1 tab, Memoria 500+D 4-20 CHEW, BID, l 07:03: 0 Constantia 00 Refill(s) clonazePAM Yes 1 mg = 1 Mem oria 1 mg oral 4-20 tab, PO, l tablet 07:03: Bedtime, 0 Allyn nn 00 Refill(s) aripiprazol Yes 5 mg = 1 Me moria e 5 MG Oral 4-20 tab, PO, l Tablet 07:03: Daily, 0 Syed [Abilify] 00 Refill(s) Cymbalta Yes 90 mg, PO, Mem oria 4-20 Daily, 0 l 07:03: Refill(s) Syed 00 biotin Yes 750 mcg, Memoria 4-20 Daily, 0 l 07:03: Refill(s) Syed 00 Estrogens, Yes 0.625 mg = M emoria Conjugated 4-20 1 tab, PO, l (CARE HOME) 0.625 07:03: Daily, 0 He rmann MG Oral 00 Refill(s) Tablet [Premarin] Thyroxine Yes 175 Memoria 4-20 microgram, l 07:03: Daily, 0 Syed 00 Refill(s) Advair Yes 1 puff, Memoria Diskus 100 4-20 INHALATION l mcg-50 mcg 07:03: , BID, 0 Her feng inhalation 00 Refill(s) powder armodafinil Yes 250 mg = 1 Memoria 250 MG Oral 4-20 tab, PO, l Tablet 07:03: BID, # 30 Johnny n [Nuvigil] 00 tab, 0 Refill(s) 24 HR Yes 4 mg = 1 Memoria Fesoterodin 4-20 tab, PO, l e Fumarate 07:03: Daily, 0 Her feng 4 MG 00 Refill(s) Extended Release Tablet [Toviaz] carvedilol Yes 6.25 mg = Me moria 6.25 MG 4-20 1 tab, PO, l Oral Tablet 07:03: BID, 0 Herm chandu [Coreg] 00 Refill(s) Donepezil Yes 23 mg = 1 Mem oria hydrochlori 4-20 tab, PO, l de 23 MG 07:03: Bedtime, 0 Her feng Oral Tablet 00 Refill(s) [Aricept] pregabalin Yes 75 mg = 1 Me moria 75 MG Oral 4-20 cap, PO, l Capsule 07:03: BID, 0 Syed [Lyrica] 00 Refill(s) Calcium Yes 1 tab, Memoria 500+D 4-20 CHEW, BID, l 07:03: 0 Syed 00 Refill(s) clonazePAM Yes 1 mg = 1 Mem oria 1 mg oral 4-20 tab, PO, l tablet 07:03: Bedtime, 0 Allyn nn 00 Refill(s) aripiprazol Yes 5 mg = 1 Me moria e 5 MG Oral 4-20 tab, PO, l Tablet 07:03: Daily, 0 Constantia [Abilify] 00 Refill(s) Cymbalta Yes 90 mg, PO, Mem oria 4-20 Daily, 0 l 07:03: Refill(s) Constantia 00 biotin Yes 750 mcg, Memoria 4-20 Daily, 0 l 07:03: Refill(s) Constantia 00 Estrogens, 0 Yes 0.625 mg = M emoria Conjugated 4-20 1 tab, PO, l (CARE HOME) 0.625 07:03: Daily, 0 He rmann MG Oral 00 Refill(s) Tablet [Premarin] Thyroxine Yes 175 Memoria 4-20 microgram, l 07:03: Daily, 0 Constantia 00 Refill(s) Advair Yes 1 puff, Memoria Diskus 100 4-20 INHALATION l mcg-50 mcg 07:03: , BID, 0 Her feng inhalation 00 Refill(s) powder armodafinil Yes 250 mg = 1 Memoria 250 MG Oral 4-20 tab, PO, l Tablet 07:03: BID, # 30 Johnny n [Nuvigil] 00 tab, 0 Refill(s) 24 HR Yes 4 mg = 1 Memoria Fesoterodin 4-20 tab, PO, l e Fumarate 07:03: Daily, 0 Her feng 4 MG 00 Refill(s) Extended Release Tablet [Toviaz] carvedilol Yes 6.25 mg = Me moria 6.25 MG 4-20 1 tab, PO, l Oral Tablet 07:03: BID, 0 Herm chandu [Coreg] 00 Refill(s) Donepezil Yes 23 mg = 1 Mem oria hydrochlori 4-20 tab, PO, l de 23 MG 07:03: Bedtime, 0 Her feng Oral Tablet 00 Refill(s) [Aricept] pregabalin Yes 75 mg = 1 Me moria 75 MG Oral 4-20 cap, PO, l Capsule 07:03: BID, 0 Syed [Lyrica] 00 Refill(s) Calcium Yes 1 tab, Memoria 500+D 4-20 CHEW, BID, l 07:03: 0 Syed 00 Refill(s) clonazePAM Yes 1 mg = 1 Mem oria 1 mg oral 4-20 tab, PO, l tablet 07:03: Bedtime, 0 Allyn nn 00 Refill(s) aripiprazol Yes 5 mg = 1 Me moria e 5 MG Oral 4-20 tab, PO, l Tablet 07:03: Daily, 0 Syed [Abilify] 00 Refill(s) Cymbalta Yes 90 mg, PO, Mem oria 4-20 Daily, 0 l 07:03: Refill(s) Syed 00 biotin Yes 750 mcg, Memoria 4-20 Daily, 0 l 07:03: Refill(s) Constantia 00 Estrogens, Yes 0.625 mg = M emoria Conjugated 4-20 1 tab, PO, l (CARE HOME) 0.625 07:03: Daily, 0 He rmann MG Oral 00 Refill(s) Tablet [Premarin] Thyroxine Yes 175 Memoria 4-20 microgram, l 07:03: Daily, 0 Syed 00 Refill(s) Advair Yes 1 puff, Memoria Diskus 100 4-20 INHALATION l mcg-50 mcg 07:03: , BID, 0 Her feng inhalation 00 Refill(s) powder armodafinil Yes 250 mg = 1 Memoria 250 MG Oral 4-20 tab, PO, l Tablet 07:03: BID, # 30 Johnny n [Nuvigil] 00 tab, 0 Refill(s) 24 HR Yes 4 mg = 1 Memoria Fesoterodin 4-20 tab, PO, l e Fumarate 07:03: Daily, 0 Her feng 4 MG 00 Refill(s) Extended Release Tablet [Toviaz] carvedilol Yes 6.25 mg = Me moria 6.25 MG 4-20 1 tab, PO, l Oral Tablet 07:03: BID, 0 Herm chandu [Coreg] 00 Refill(s) Donepezil Yes 23 mg = 1 Mem oria hydrochlori 4-20 tab, PO, l de 23 MG 07:03: Bedtime, 0 Her feng Oral Tablet 00 Refill(s) [Aricept] pregabalin Yes 75 mg = 1 Me moria 75 MG Oral 4-20 cap, PO, l Capsule 07:03: BID, 0 Constantia [Lyrica] 00 Refill(s) Calcium Yes 1 tab, Memoria 500+D 4-20 CHEW, BID, l 07:03: 0 Syed 00 Refill(s) clonazePAM Yes 1 mg = 1 Mem oria 1 mg oral 4-20 tab, PO, l tablet 07:03: Bedtime, 0 Allyn nn 00 Refill(s) aripiprazol Yes 5 mg = 1 Me moria e 5 MG Oral 4-20 tab, PO, l Tablet 07:03: Daily, 0 Syed [Abilify] 00 Refill(s) Cymbalta Yes 90 mg, PO, Mem oria 4-20 Daily, 0 l 07:03: Refill(s) Syed 00 biotin Yes 750 mcg, Memoria 4-20 Daily, 0 l 07:03: Refill(s) Constantia 00 Estrogens, Yes 0.625 mg = M emoria Conjugated 4-20 1 tab, PO, l (CARE HOME) 0.625 07:03: Daily, 0 He rmann MG Oral 00 Refill(s) Tablet [Premarin] Thyroxine Yes 175 Memoria 4-20 microgram, l 07:03: Daily, 0 Constantia 00 Refill(s) Advair Yes 1 puff, Memoria Diskus 100 4-20 INHALATION l mcg-50 mcg 07:03: , BID, 0 Her feng inhalation 00 Refill(s) powder armodafinil Yes 250 mg = 1 Memoria 250 MG Oral 4-20 tab, PO, l Tablet 07:03: BID, # 30 Johnny n [Nuvigil] 00 tab, 0 Refill(s) 24 HR Yes 4 mg = 1 Memoria Fesoterodin 4-20 tab, PO, l e Fumarate 07:03: Daily, 0 Her feng 4 MG 00 Refill(s) Extended Release Tablet [Toviaz] carvedilol Yes 6.25 mg = Me moria 6.25 MG 4-20 1 tab, PO, l Oral Tablet 07:03: BID, 0 Herm chandu [Coreg] 00 Refill(s) Donepezil Yes 23 mg = 1 Mem oria hydrochlori 4-20 tab, PO, l de 23 MG 07:03: Bedtime, 0 Her feng Oral Tablet 00 Refill(s) [Aricept] pregabalin Yes 75 mg = 1 Me moria 75 MG Oral 4-20 cap, PO, l Capsule 07:03: BID, 0 Syed [Lyrica] 00 Refill(s) Calcium Yes 1 tab, Memoria 500+D 4-20 CHEW, BID, l 07:03: 0 Constantia 00 Refill(s) clonazePAM Yes 1 mg = 1 Mem oria 1 mg oral 4-20 tab, PO, l tablet 07:03: Bedtime, 0 Allyn nn 00 Refill(s) aripiprazol Yes 5 mg = 1 Me moria e 5 MG Oral 4-20 tab, PO, l Tablet 07:03: Daily, 0 Constantia [Abilify] 00 Refill(s) Cymbalta Yes 90 mg, PO, Mem oria 4-20 Daily, 0 l 07:03: Refill(s) Constantia 00 biotin Yes 750 mcg, Memoria 4-20 Daily, 0 l 07:03: Refill(s) Constantia 00 Estrogens, Yes 0.625 mg = M emoria Conjugated 4-20 1 tab, PO, l (CARE HOME) 0.625 07:03: Daily, 0 He rmann MG Oral 00 Refill(s) Tablet [Premarin] Thyroxine Yes 175 Memoria 4-20 microgram, l 07:03: Daily, 0 Syed 00 Refill(s) Advair Yes 1 puff, Memoria Diskus 100 4-20 INHALATION l mcg-50 mcg 07:03: , BID, 0 Her feng inhalation 00 Refill(s) powder armodafinil Yes 250 mg = 1 Memoria 250 MG Oral 4-20 tab, PO, l Tablet 07:03: BID, # 30 Johnny n [Nuvigil] 00 tab, 0 Refill(s) 24 HR Yes 4 mg = 1 Memoria Fesoterodin 4-20 tab, PO, l e Fumarate 07:03: Daily, 0 Her feng 4 MG 00 Refill(s) Extended Release Tablet [Toviaz] carvedilol Yes 6.25 mg = Me moria 6.25 MG 4-20 1 tab, PO, l Oral Tablet 07:03: BID, 0 Herm chandu [Coreg] 00 Refill(s) Donepezil Yes 23 mg = 1 Mem oria hydrochlori 4-20 tab, PO, l de 23 MG 07:03: Bedtime, 0 Her feng Oral Tablet 00 Refill(s) [Aricept] pregabalin Yes 75 mg = 1 Me moria 75 MG Oral 4-20 cap, PO, l Capsule 07:03: BID, 0 Constantia [Lyrica] 00 Refill(s) Calcium Yes 1 tab, Memoria 500+D 4-20 CHEW, BID, l 07:03: 0 Syed 00 Refill(s) clonazePAM Yes 1 mg = 1 Mem oria 1 mg oral 4-20 tab, PO, l tablet 07:03: Bedtime, 0 Allyn nn 00 Refill(s) aripiprazol Yes 5 mg = 1 Me moria e 5 MG Oral 4-20 tab, PO, l Tablet 07:03: Daily, 0 Syed [Abilify] 00 Refill(s) Cymbalta Yes 90 mg, PO, Mem oria 4-20 Daily, 0 l 07:03: Refill(s) Syed 00 biotin Yes 750 mcg, Memoria 4-20 Daily, 0 l 07:03: Refill(s) Constantia 00 Estrogens, Yes 0.625 mg = M emoria Conjugated 4-20 1 tab, PO, l (CARE HOME) 0.625 07:03: Daily, 0 He rmann MG Oral 00 Refill(s) Tablet [Premarin] Thyroxine Yes 175 Memoria 4-20 microgram, l 07:03: Daily, 0 Constantia 00 Refill(s) Advair Yes 1 puff, Memoria Diskus 100 4-20 INHALATION l mcg-50 mcg 07:03: , BID, 0 Her feng inhalation 00 Refill(s) powder armodafinil Yes 250 mg = 1 Memoria 250 MG Oral 4-20 tab, PO, l Tablet 07:03: BID, # 30 Johnny n [Nuvigil] 00 tab, 0 Refill(s) 24 HR Yes 4 mg = 1 Memoria Fesoterodin 4-20 tab, PO, l e Fumarate 07:03: Daily, 0 Her feng 4 MG 00 Refill(s) Extended Release Tablet [Toviaz] carvedilol Yes 6.25 mg = Me moria 6.25 MG 4-20 1 tab, PO, l Oral Tablet 07:03: BID, 0 Herm chandu [Coreg] 00 Refill(s) Donepezil Yes 23 mg = 1 Mem oria hydrochlori 4-20 tab, PO, l de 23 MG 07:03: Bedtime, 0 Her feng Oral Tablet 00 Refill(s) [Aricept] pregabalin Yes 75 mg = 1 Me moria 75 MG Oral 4-20 cap, PO, l Capsule 07:03: BID, 0 Syed [Lyrica] 00 Refill(s) Calcium Yes 1 tab, Memoria 500+D 4-20 CHEW, BID, l 07:03: 0 Syed 00 Refill(s) clonazePAM Yes 1 mg = 1 Mem oria 1 mg oral 4-20 tab, PO, l tablet 07:03: Bedtime, 0 Allyn nn 00 Refill(s) aripiprazol Yes 5 mg = 1 Me moria e 5 MG Oral 4-20 tab, PO, l Tablet 07:03: Daily, 0 Syed [Abilify] 00 Refill(s) Cymbalta Yes 90 mg, PO, Mem oria 4-20 Daily, 0 l 07:03: Refill(s) Syed 00 biotin Yes 750 mcg, Memoria 4-20 Daily, 0 l 07:03: Refill(s) Constantia 00 Estrogens, Yes 0.625 mg = M emoria Conjugated 4-20 1 tab, PO, l (CARE HOME) 0.625 07:03: Daily, 0 He rmann MG Oral 00 Refill(s) Tablet [Premarin] Thyroxine Yes 175 Memoria 4-20 microgram, l 07:03: Daily, 0 Constantia 00 Refill(s) Advair Yes 1 puff, Memoria Diskus 100 4-20 INHALATION l mcg-50 mcg 07:03: , BID, 0 Her feng inhalation 00 Refill(s) powder armodafinil Yes 250 mg = 1 Memoria 250 MG Oral 4-20 tab, PO, l Tablet 07:03: BID, # 30 Johnny n [Nuvigil] 00 tab, 0 Refill(s) 24 HR Yes 4 mg = 1 Memoria Fesoterodin 4-20 tab, PO, l e Fumarate 07:03: Daily, 0 Her feng 4 MG 00 Refill(s) Extended Release Tablet [Toviaz] carvedilol Yes 6.25 mg = Me moria 6.25 MG 4-20 1 tab, PO, l Oral Tablet 07:03: BID, 0 Herm chandu [Coreg] 00 Refill(s) Donepezil Yes 23 mg = 1 Mem oria hydrochlori 4-20 tab, PO, l de 23 MG 07:03: Bedtime, 0 Her feng Oral Tablet 00 Refill(s) [Aricept] pregabalin Yes 75 mg = 1 Me moria 75 MG Oral 4-20 cap, PO, l Capsule 07:03: BID, 0 [facility] [Lyrica] 00 Refill(s) Calcium Yes 1 tab, [facility] 500+D 4-20 CHEW, BID, l 07:03: 0 Syed 00 Refill(s) clonazePAM Yes 1 mg = 1 Mem oria 1 mg oral 4-20 tab, PO, l tablet 07:03: Bedtime, 0 Allyn nn 00 Refill(s) aripiprazol Yes 5 mg = 1 Me moria e 5 MG Oral 4-20 tab, PO, l Tablet 07:03: Daily, 0 [facility] [Abilify] 00 Refill(s) Cymbalta Yes 90 mg, PO, Mem oria 4-20 Daily, 0 l 07:03: Refill(s) [facility] 00 biotin Yes 750 mcg, [facility] 4-20 Daily, 0 l 07:03: Refill(s) [facility] 00 Estrogens, Yes 0.625 mg = M emoria Conjugated 4-20 1 tab, PO, l (CARE HOME) 0.625 07:03: Daily, 0 He rmann MG Oral 00 Refill(s) Tablet [Premarin] Thyroxine Yes 175 [facility] 4-20 microgram, l 07:03: Daily, 0 [facility] 00 Refill(s) Advair Yes 1 puff, [facility] Diskus 100 4-20 INHALATION l mcg-50 mcg 07:03: , BID, 0 Her feng inhalation 00 Refill(s) powder albuterol albuterol No albuterol [facility] sulfate HFA [...] TABLET BY DAY DAY MOUTH EVERY DAY aspirin 81 aspirin 81 No 1 Q1D aspirin 81 [facility] mg mg mg da tablet,josesito tablet,josesito tablet,del Medical yed release yed release ayed G roup Take 1 Take 1 release tablet tablet Take 1 every day every day tablet by oral by oral every day route. route. by oral route. atorvastati atorvastati No atorvastat [place] n 20 mg n 20 mg in 20 mg da tablet TAKE tablet TAKE tablet Medical 1 TABLET BY 1 TABLET BY TAKE 1 Group MOUTH EVERY MOUTH EVERY TABLET BY DAY AT DAY AT MOUTH BEDTIME BEDTIME EVERY DAY AT BEDTIME clonazepam clonazepam No clonazepam [facility] 1 mg tablet 1 mg tablet 1 mg d a TAKE 1 TAKE 1 tablet Medical TABLET BY TABLET BY TAKE 1 Michelle up MOUTH IN MOUTH IN TABLET BY THE MORNING THE MORNING MOUTH IN AND 2 AND 2 THE TABLETS AT TABLETS AT MORNING BEDTIME BEDTIME AND 2 TABLETS AT BEDTIME clopidogrel clopidogrel No clopidogre [facility] 75 mg 75 mg l 75 mg da tablet TAKE tablet TAKE tablet Medical 1 TABLET BY 1 TABLET BY TAKE 1 Group MOUTH EVERY MOUTH EVERY TABLET BY DAY DAY MOUTH EVERY DAY Eliquis 2.5 Eliquis 2.5 No Eliquis [facility] mg tablet mg tablet 2.5 mg da TAKE 1 TAKE 1 tablet Medical TABLET BY TABLET BY TAKE 1 Michelle up MOUTH TWICE MOUTH TWICE TABLET BY A DAY A DAY MOUTH TWICE A DAY gabapentin gabapentin No gabapentin [facility] 300 mg 300 mg 300 mg da capsule capsule capsule Medica l TAKE 1 TAKE 1 TAKE 1 Group CAPSULE BY CAPSULE BY CAPSULE BY MOUTH THREE MOUTH THREE MOUTH TIMES A DAY TIMES A DAY THREE FOR 90 DAYS FOR 90 DAYS TIMES A DAY FOR 90 DAYS hydroxyzine hydroxyzine No hydroxyzin [facility] pamoate 25 pamoate 25 e pamoate da mg capsule mg capsule 25 mg Me dical TAKE 1 TAKE 1 capsule Group CAPSULE BY CAPSULE BY TAKE 1 MOUTH EVERY MOUTH EVERY CAPSULE BY DAY DAY MOUTH NEEDED NEEDED EVERY DAY NEEDED Keflex 250 Keflex 250 No 1capsul Q1D Keflex 250 [facility] mg capsule mg capsule e(s) mg capsule da Take 1 Take 1 Take 1 Medical capsule capsule capsule Group every day every day every day by oral by oral by oral route for route for route for 90 days. 90 days. 90 days. levetiracet levetiracet No levetirace [place] am 250 mg am 250 mg guzman 250 mg da tablet TAKE tablet TAKE tablet Medical 1 TABLET BY 1 TABLET BY TAKE 1 Group MOUTH TWICE MOUTH TWICE TABLET BY A DAY A DAY MOUTH TWICE A DAY levothyroxi levothyroxi No levothyrox [place] ne 100 mcg ne 100 mcg ine 100 da tablet TAKE tablet TAKE mcg tablet Medical 1 TABLET BY 1 TABLET BY TAKE 1 Group MOUTH EVERY MOUTH EVERY TABLET BY DAY DAY MOUTH EVERY DAY mupirocin 2 mupirocin 2 No mupirocin [facility] % topical % topical 2 % da ointment ointment topical Medi nicolas APPLY A APPLY A ointment Group SMALL SMALL APPLY A AMOUNT TO AMOUNT TO SMALL THE THE AMOUNT TO AFFECTED AFFECTED THE AREA BY AREA BY AFFECTED TOPICAL TOPICAL AREA BY ROUTE 3 ROUTE 3 TOPICAL TIMES PER TIMES PER ROUTE 3 DAY FOR 10 DAY FOR 10 TIMES PER DAYS DAYS DAY FOR 10 DAYS pantoprazol pantoprazol No pantoprazo [place] e 40 mg e 40 mg le 40 mg da tablet,josesito tablet,josesito tablet,del Medical yed release yed release ayed G roup TAKE 1 TAKE 1 release TABLET BY TABLET BY TAKE 1 MOUTH EVERY MOUTH EVERY TABLET BY DAY DAY MOUTH EVERY DAY potassium potassium No potassium [facility] chloride ER chloride ER chloride da 20 mEq 20 mEq ER 20 mEq Medica l tablet,exte tablet,exte tablet,ext Group nded nded ended release release release TAKE 1 TAKE 1 TAKE 1 TABLET BY TABLET BY TABLET BY MOUTH EVERY MOUTH EVERY MOUTH DAY [...] EVERY AWAKE. AWAKE. 4 HOURS WHILE AWAKE. tramadol 50 tramadol 50 No tramadol [facility] mg tablet mg tablet 50 mg da TAKE 1 TAKE 1 tablet Medical TABLET TABLET TAKE 1 Group EVERY 6 EVERY 6 TABLET HOURS BY HOURS BY EVERY 6 ORAL ROUTE ORAL ROUTE HOURS BY NEEDED NEEDED ORAL ROUTE FOR PAIN FOR PAIN NEEDED FOR 30 FOR 30 FOR PAIN DAYS. DAYS. FOR 30 DAYS. Vitamin D3 Vitamin D3 No Vitamin D3 [facility] (calcium (calcium (calcium da cit-phos) cit-phos) cit-phos) Medical 800 I.U. 800 I.U. 800 I.U. Michelle up tid tid tid Immunizations Ordered Immunization Filled Immunization Date Status Commen ts Source Name Name influenza virus 2022-08-01 [facility]pleted [facility], inactivated 22:19:00 [facility] influenza virus 2022-08-01 Completed [facility] vaccine, inactivated 22:19:00 [facility] chandu influenza virus 2022-08-01 Completed [facility] vaccine, inactivated 22:19:00 [facility] chandu influenza virus 2022-08-01 Completed [facility] vaccine, inactivated 22:19:00 [facility] chandu influenza virus 2022-08-01 Completed [facility] vaccine, inactivated 22:19:00 [facility] chandu influenza virus 2022-08-01 Completed [facility] vaccine, inactivated 22:19:00 [facility] chandu influenza virus 2022-08-01 Completed [facility] vaccine, inactivated 22:19:00 [facility] chandu influenza virus 2022-08-01 Completed [facility] vaccine, inactivated 22:19:00 [facility] chandu influenza virus 2022-08-01 Completed [facility] vaccine, inactivated 22:19:00 [facility] chandu influenza virus 2022-08-01 Completed [facility] vaccine, inactivated 22:19:00 [facility] chandu influenza virus 2022-08-01 Completed [facility] vaccine, inactivated 22:19:00 [facility] chandu Tdap Tdap 2021-03-25 Completed [place] 00:00:00 [facility] influenza, influenza, 2019-08-11 Completed [place] injectable, injectable, 00:00:00 [facility] Gr[facility] p quadrivalent quadrivalent influenza, high dose influenza, high dose 2013-08-26 Completed [place] seasonal seasonal 00:00:00 [facility] Group zoster live zoster live 2013-08-26 Completed [place] 00:00:00 [facility] Hx influenza 2011-08-17 Completed [facility] vaccine-unspecified<s 05:00:00 Her feng up>1</sup> Hx influenza 2011-08-17 Completed [facility] vaccine-unspecified<s 05:00:00 Her feng up>1</sup> Hx influenza 2011-08-17 Completed [facility] vaccine-unspecified<s 05:00:00 Her feng up>1</sup> Hx influenza 2011-08-17 Completed [facility] vaccine-unspecified<s 05:00:00 Her feng up>1</sup> Hx influenza 2011-08-17 Completed [facility] vaccine-unspecified<s 05:00:00 Her feng up>1</sup> Hx influenza 2011-08-17 Completed [facility] vaccine-unspecified<s 05:00:00 Her feng up>1</sup> Hx influenza 2011-08-17 Completed [facility] vaccine-unspecified<s 05:00:00 Her feng up>1</sup> Hx influenza 2011-08-17 Completed [facility] vaccine-unspecified<s 05:00:00 Her feng up>1</sup> Hx influenza 2011-08-17 Completed [facility] vaccine-unspecified<s 05:00:00 Her feng up>1</sup> Hx influenza 2011-08-17 Completed [facility] vaccine-unspecified<s 05:00:00 Her feng up>1</sup> Hx influenza 2011-08-17 Completed [facility] vaccine-unspecified<s 05:00:00 Her feng up>1</sup> Hx influenza 2011-08-17 Completed [facility] vaccine-unspecified<s 05:00:00 Her feng up>1</sup> pneumococcal pneumococcal 2010-11-13 Completed [place] polysaccharide PPV23 polysaccharide PPV23 00:00:00 [facility] Group Vital Signs Vital Name Observation Time Observation Value Comments Source Systolic blood 2022-10-18 01:10:00 124 mm[Hg] Univer sity of pressure [facility] Diastolic blood 2022-10-18 01:10:00 56 mm[Hg] Unive rsity of pressure [facility] Heart rate 2022-10-18 01:10:00 66 /min [facility] Body temperature 2022-10-18 01:10:00 [facility]44 [facility] 2022-10-18 01:10:00 18 /min [facility] Oxygen saturation in 2022-10-18 01:10:00 95 /min [facility] Arterial blood by [facility] Pulse oximetry Branch Body weight 2022-10-12 02:00:00 63.957 kg [facility] BMI 2022-10-12 02:00:00 23.46 kg/m2 [facility] Body height 2022-10-10 16:57:00 165.1 cm [facility] BP Diastolic 2022-05-22 00:00:00 61 mm[Hg] [facility] Height 2022-05-22 00:00:00 65 [in_i] [facility] BMI (Body Mass 2022-05-22 00:00:[facility] BP Systolic 2022-05-22 00:00:00 117 mm[Hg] [facility] Body Weight 2022-05-22 00:00:00 1824 [oz_av] [facility] Height 2021-11-09 00:00:00 65 [in_i] [facility] BMI (Body Mass 2021-11-09 00:00:00 20[facility]3 [facility] Body Weight 2021-11-09 00:00:00 1952 [oz_av] [facility] Height 2021-10-30 00:00:00 65 [in_i] [facility] BMI (Body Mass 2021-10-30 00:00:00 20.3 kg/m2 [facility] Body Weight 2021-10-30 00:00:00 1952 [oz_av] [facility] Height 2021-07-24 00:00:00 65 [in_i] [facility] BMI (Body Mass 2021-07-24 00:00:00 21 kg/m2 [facility] Body Weight 2021-07-24 00:00:00 2016 [oz_av] [facility] Systolic blood 2021-07-12 14:37:00 98 mm[Hg] [facility] Diastolic blood 2021-07-12 14:37:00 58 [facility]Hg[facility] 2021-07-12 14:37:00 75 /min [facility] Body temperature 2021-07-12 14:37:00 36.28 [facility] Respiratory rate 2021-07-12 14:37:00 16 /min [facility] Body height 2021-07-12 14:37:00 165.1 cm [facility] Body weight 2021-07-12 14:37:00 55.792 kg [facility] BMI 2021-07-12 14:37:00 20.47 kg/m2 [facility] Oxygen saturation in 2021-07-12 14:37:00 96 /min [facility] Arterial blood by [facility] Pulse oximetry Branch BP Diastolic 2021-06-19 00:00:00 55 mm[Hg] [facility] Height 2021-06-19 00:00:00 65 [in_i] [facility] BMI (Body Mass 2021-06-19 00:00:00 21.1 [facility] BP Systolic 2021-06-19 00:00:00 125 mm[Hg] [facility] Body Weight 2021-06-19 00:00:00 126.9 [lb_av] [facility] BP Diastolic 2021-05-31 00:00:00 61 mm[Hg] [facility] Height 2021-05-31 00:00:00 65 [in_i] [facility] BMI (Body Mass 2021-05-31 00:00:00 21.2 kg/m2 [facility] BP Systolic 2021-05-31 00:00:00 127 mm[Hg] [facility] Body Weight 2021-05-31 00:00:00 2038 [oz_av] [facility] Height 2021-03-22 00:00:00 65 [in_i] [facility] BMI (Body Mass 2021-03-22 00:00:00 20.8 kg/m2 [facility] Body Weight 2021-03-22 00:00:00 2000 [oz_av] [facility] BP Diastolic 2021-02-06 00:00:00 63 mm[Hg] [facility] Height 2021-02-06 00:00:00 65 [in_i] [facility] BMI (Body Mass 2021-02-06 00:00:00 20.9 kg/m2 [facility] BP Systolic 2021-02-06 00:00:00 116 mm[Hg] [facility] Body Weight 2021-02-06 00:00:00 125.3 [lb_av] [facility] Height 2021-01-16 00:00:00 65 [in_i] [facility] BMI (Body Mass 2021-01-16 00:00:00 20 kg/m2 [facility] Body Weight 2021-01-16 00:00:00 1920 [oz_av] [facility] Height 2020-12-01 00:00:00 65 [in_i] [facility] BMI (Body Mass 2020-12-01 00:00:00 20 kg/m2 [facility] Body Weight 2020-12-01 00:00:00 1920 [oz_av] [facility] Height 2020-11-08 00:00:00 65 [in_i] [facility] BMI (Body Mass 2020-11-08 00:00:00 20 kg/m2 [facility] Body Weight 2020-11-08 00:00:00 1920 [oz_av] [facility] Height 2020-08-30 00:00:00 65 [in_i] [facility] BMI (Body Mass 2020-08-30 00:00:00 20 kg/m2 [facility] Body Weight 2020-08-30 00:00:00 1920 [oz_av] [facility] Height 2020-08-15 00:00:00 65 [in_i] [facility] BMI (Body Mass 2020-08-15 00:00:00 20 kg/m2 [facility] Body Weight 2020-08-15 00:00:00 1920 [oz_av] [facility] Height 2020-07-14 21:34:00 167.64 CM Weight 2020-07-14 21:34:00 54.88 KG BP Diastolic 2020-01-21 00:00:00 64 mm[Hg] [facility] Height 2020-01-21 00:00:00 65 [in_i] [facility] BMI (Body Mass 2020-01-21 00:00:00 21 kg/m2 [facility] BP Systolic 2020-01-21 00:00:00 110 mm[Hg] [facility] Body Weight 2020-01-21 00:00:00 126 [lb_av] [facility] BP Diastolic 2020-01-18 00:00:00 62 mm[Hg] [facility] Height 2020-01-18 00:00:00 65 [in_i] [facility] BMI (Body Mass 2020-01-18 00:00:00 21.1 kg/m2 [facility] BP Systolic 2020-01-18 00:00:00 106 mm[Hg] [facility] Body Weight 2020-01-18 00:00:00 2024 [oz_av] [facility] BP Diastolic 2020-01-07 00:00:00 67 mm[Hg] [facility] Height 2020-01-07 00:00:00 65 [in_i] [facility] BMI (Body Mass 2020-01-07 00:00:00 20.8 kg/m2 [facility] BP Systolic 2020-01-07 00:00:00 117 mm[Hg] [facility] Body Weight 2020-01-07 00:00:00 124.7 [lb_av] [facility] BP Diastolic 2019-10-27 00:00:00 61 mm[Hg] [facility] Height 2019-10-27 00:00:00 65 [in_i] [facility] BMI (Body Mass 2019-10-27 00:00:00 20 kg/m2 [facility] Medical Index) Group BP Systolic 2019-10-27 00:00:00 103 mm[Hg] [facility] Body Weight 2019-10-27 00:00:00 1923 [oz_av] [facility] BP Diastolic 2019-10-05 00:00:00 74 mm[Hg] [facility] Height 2019-10-05 00:00:00 65 [in_i] [facility] BMI (Body Mass 2019-10-05 00:00:00 20.5 kg/m2 [facility] Medical Index) Group BP Systolic 2019-10-05 00:00:00 130 mm[Hg] [facility] Body Weight 2019-10-05 00:00:00 1969 [oz_av] [facility] BP Diastolic 2019-08-10 00:00:00 67 mm[Hg] [facility] Height 2019-08-10 00:00:00 65 [in_i] [facility] BMI (Body Mass 2019-08-10 00:00:00 20.7 kg/m2 [facility] Medical Index) Group BP Systolic 2019-08-10 00:00:00 115 mm[Hg] [facility] Body Weight 2019-08-10 00:00:00 1993 [oz_av] [facility] BP Diastolic 2019-06-11 00:00:00 64 mm[Hg] [facility] Height 2019-06-11 00:00:00 65 [in_i] [facility] BMI (Body Mass 2019-06-11 00:00:00 20 kg/m2 [facility] Index) Group BP Systolic 2019-06-11 00:00:00 113 mm[Hg] [facility] Body Weight 2019-06-11 00:00:00 120 [lb_av] [facility] BP Diastolic 2019-06-09 00:00:00 60 mm[Hg] [facility] Height 2019-06-09 00:00:00 65 [in_i] [facility] BMI (Body Mass 2019-06-09 00:00:00 20.3 kg/m2 [facility] Medical Index) Group BP Systolic 2019-06-09 00:00:00 111 mm[Hg] [facility] Body Weight 2019-06-09 00:00:00 1947.2 [oz_av] [facility] BP Diastolic 2019-05-12 00:00:00 71 mm[Hg] [facility] Height 2019-05-12 00:00:00 65 [in_i] [facility] BMI (Body Mass 2019-05-12 00:00:00 19.3 kg/m2 [facility] Medical Index) Group BP Systolic 2019-05-12 00:00:00 118 mm[Hg] [facility] Body Weight 2019-05-12 00:00:00 1856 [oz_av] [facility] BP Diastolic 2019-04-09 00:00:00 76 mm[Hg] [facility] Height 2019-04-09 00:00:00 65 [in_i] [facility] BMI (Body Mass 2019-04-09 00:00:00 21 kg/m2 [facility] Index) Group BP Systolic 2019-04-09 00:00:00 132 mm[Hg] [facility] Body Weight 2019-04-09 00:00:00 126 [lb_av] [facility] BP Diastolic 2019-03-03 00:00:00 74 mm[Hg] [facility] Height 2019-03-03 00:00:00 65 [in_i] [facility] BMI (Body Mass 2019-03-03 00:00:00 21 kg/m2 [facility] Index) Group BP Systolic 2019-03-03 00:00:00 126 mm[Hg] [facility] Body Weight 2019-03-03 00:00:00 2016 [oz_av] [facility] BP Diastolic 2019-02-26 00:00:00 65 mm[Hg] [facility] Height 2019-02-26 00:00:00 65 [in_i] [facility] BMI (Body Mass 2019-02-26 00:00:00 [facility] BP Systolic 2019-02-26 00:00:00 102 mm[Hg] [facility] Body Weight 2019-02-26 00:00:00 2019 [oz_av] [facility] BP Diastolic 2019-02-03 00:00:00 62 mm[Hg] [facility] Height 2019-02-03 00:00:00 65 [in_i] [facility] BMI (Body Mass 2019-02-03 00:00:00 21.2 [facility] BP Systolic 2019-02-03 00:00:00 141 mm[Hg] [facility] Body Weight 2019-02-03 00:00:00 2037 [oz_av] [facility] BP Diastolic 2019-01-21 00:00:00 52 mm[Hg] [facility] Height 2019-01-21 00:00:00 65 [in_i] [facility] BMI (Body Mass 2019-01-21 00:00:00 20.8 kg/m2 [facility] Index) Group BP Systolic 2019-01-21 00:00:00 113 mm[Hg] [facility] Body Weight 2019-01-21 00:00:00 2000 [oz_av] [facility] BP Diastolic 2019-01-01 00:00:00 66 mm[Hg] [facility] Height 2019-01-01 00:00:00 65 [in_i] [facility] BMI (Body Mass 2019-01-01 00:00:00 20.7 kg/m2 [facility] Index) Group BP Systolic 2019-01-01 00:00:00 106 mm[Hg] [facility] Body Weight 2019-01-01 00:00:00 1991 [oz_av] [facility] BP Diastolic 2018-12-05 00:00:00 63 mm[Hg] [facility] Height 2018-12-05 00:00:00 65 [in_i] [facility] BMI (Body Mass 2018-12-05 00:00:00 20.2 kg/m2 [facility] Medical Index) Group BP Systolic 2018-12-05 00:00:00 116 mm[Hg] [facility] Body Weight 2018-12-05 00:00:00 1941 [oz_av] [facility] Heart Rate 2022-10-28 14:41:37 [facility] Respitory Rate 2022-10-28 14:41:37 [facility] al [facility] Temperature Oral (F) 2022-10-28 14:41:06 98.3 F [facility] Systolic (mm Hg) 2022-10-28 14:41:00 Ervin rial Syed Diastolic (mm Hg) 2022-10-28 14:41:00 Mem orial Syed Heart Rate 2022-10-28 14:41:00 [facility] Heart Rate 2022-10-28 10:26:33 [facility] Respitory Rate 2022-10-28 10:26:33 [facility] Temperature Oral (F) 2022-10-28 10:26:24 98.3 F [facility] Systolic (mm Hg) 2022-10-28 10:25:50 Ervin rial Syed Diastolic (mm Hg) 2022-10-28 10:25:50 Mem orial [facility] Temperature Oral (F) 2022-10-28 10:25:00 98.3 F [facility] Respitory Rate 2022-10-28 10:25:00 [facility] Systolic (mm Hg) 2022-10-28 05:45:43 Ervin rial [facility] Diastolic (mm Hg) 2022-10-28 05:45:43 Mem orial [facility] Temperature Oral (F) 2022-10-26 22:45:00 97.5 F [facility] Height 2022-10-25 12:05:00 5 [ft_i] [facility] Weight 2022-10-25 12:05:00 [facility] BMI Calculated 2022-10-25 12:05:00 Memori al Syed Systolic (mm Hg) 2022-08-05 11:32:02 Ervin rial Syed Diastolic (mm Hg) 2022-08-05 11:32:02 Mem orial Sy[facility] Heart Rate 2022-08-05 11:32:02 [facility] Temperature Oral (F) 2022-08-05 11:32:01 97.6 F [facility] Heart Rate 2022-08-05 02:19:00 [facility] Systolic (mm Hg) 2022-08-05 02:19:00 Ervin rial Ysed Diastolic (mm Hg) 2022-08-05 02:19:00 Mem orial Syed Systolic (mm Hg) 2022-08-04 23:06:08 Ervin rial Syed Diastolic (mm Hg) 2022-08-04 23:06:08 Mem orial [facility] Heart Rate 2022-08-04 23:06:08 [facility] Respitory Rate 2022-08-03 11:37:28 [facility] Temperature Oral (F) 2022-08-02 23:14:00 97.9 F [facility] Temperature Oral (F) 2022-08-02 19:00:00 98.1 F [facility] Respitory Rate 2022-08-02 19:00:00 [facility] Respitory Rate 2022-08-01 11:28:49 [facility] Height 2022-07-22 21:30:00 165.1 cm [facility] Weight 2022-07-22 21:30:00 [facility] BMI Calculated 2022-07-22 21:30:00 [facility] Heart Rate 2022-07-22 15:30:48 [facility] Respitory Rate 2022-07-22 15:30:48 [facility] Systolic (mm Hg) 2022-07-22 15:30:44 Ervin rial [facility] Diastolic (mm Hg) 2022-07-22 15:30:44 Mem orial [facility] Heart Rate 2022-07-22 15:30:44 [facility] Temperature Oral (F) 2022-07-22 15:30:00 98.4 F [facility] Respitory Rate 2022-07-22 14:00:00 Memori al Syed Systolic (mm Hg) 2022-07-22 14:00:00 Ervin rial [facility] Diastolic (mm Hg) 2022-07-22 14:00:00 Mem orial [facility] Temperature Oral (F) 2022-07-22 13:24:00 98.4 F [facility] Respitory Rate 2022-07-22 13:00:00 Memori al Syed Systolic (mm Hg) 2022-07-22 13:00:00 Ervin rial Syed Diastolic (mm Hg) 2022-07-22 13:00:00 Mem orial Syed Temperature Oral (F) 2022-07-22 09:10:00 98.1 F [facility] Height 2022-07-18 23:03:00 165.1 cm [facility] Weight 2022-07-18 23:03:00 [facility] BMI Calculated 2022-07-18 23:03:00 [facility] Heart Rate 2022-01-10 17:26:01 [facility] Respitory Rate 2022-01-10 17:26:01 [facility] Systolic (mm Hg) 2022-01-10 17:25:09 Ervin rial Syed Diastolic (mm Hg) 2022-01-10 17:25:09 Mem orial [facility] Heart Rate 2022-01-10 17:25:09 [facility] Temperature Oral (F) 2022-01-10 17:25:00 98.2 F [facility] Temperature Oral (F) 2022-01-10 13:38:00 98.4 F [facility] Heart Rate 2022-01-10 13:38:00 [facility] Respitory Rate 2022-01-10 13:38:00 [facility] Systolic (mm Hg) 2022-01-10 13:38:00 Ervin rial [facility] Diastolic (mm Hg) 2022-01-10 13:38:00 Mem orial Syed Temperature Oral (F) 2022-01-10 09:34:00 98.2 F [facility] Respitory Rate 2022-01-10 09:34:00 [facility] Systolic (mm Hg) 2022-01-10 09:34:00 Ervin rial [facility] Diastolic (mm Hg) 2022-01-10 09:34:00 Mem orial Syed Height 2022-01-02 07:20:00 165 cm [facility] Weight 2022-01-02 07:20:00 [facility] BMI Calculated 2022-01-02 07:20:00 [facility] Height 2022-01-02 04:30:00 165.1 cm [facility] Weight 2022-01-02 04:30:00 [facility] Systolic (mm Hg) 2022-01-01 09:00:00 Ervin rial Syed Diastolic (mm Hg) 2022-01-01 09:00:00 Mem orial Syed Respitory Rate 2022-01-01 09:00:00 [facility] Respitory Rate 2022-01-01 08:00:00 Mem[facility] al [facility] Systolic (mm Hg) 2022-01-01 08:00:00 Ervin rial [facility] Diastolic (mm Hg) 2022-01-01 08:00:00 Mem orial Syed Respitory Rate 2022-01-01 07:00:00 [facility] Systolic (mm Hg) 2022-01-01 07:00:00 Ervin rial Syed Diastolic (mm Hg) 2022-01-01 07:00:00 Mem o[facility] Heart Rate 2021-12-30 20:05:00 [facility] Temperature Oral (F) 2021-12-30 19:57:00 98.0 F [facility] Heart Rate 2021-12-30 19:57:00 [facility] Heart Rate 2021-12-30 16:57:00 [facility] Temperature Oral (F) 2021-12-30 15:07:47 97.7 F [facility] Temperature Oral (F) 2021-12-30 11:38:00 97.4 F [facility] Height 2021-12-29 15:09:00 165.1 cm [facility] BMI Calculated 2021-12-29 15:09:00 [facility] Weight 2021-12-29 15:09:00 [facility] Weight 2021-12-29 12:30:00 [facility] Weight 2021-12-28 20:45:00 [facility] Temperature Oral (F) 2021-03-02 12:56:00 98.6 F [facility] Heart Rate 2021-03-02 12:56:00 [facility] Respitory Rate 2021-03-02 12:56:00 Memori al [facility] Systolic (mm Hg) 2021-03-02 12:56:00 Ervin rial [facility] Diastolic (mm Hg) 2021-03-02 12:56:00 Mem [facility] Temperature Oral (F) 2021-03-02 09:48:00 98.2 F [facility] Heart Rate 2021-03-02 09:48:00 [facility] Respitory Rate 2021-03-02 09:48:00 [facility] al [facility] Systolic (mm Hg) 2021-03-02 09:48:00 Ervin rial Syed Diastolic (mm Hg) 2021-03-02 09:48:00 Mem o[facility] Temperature Oral (F) 2021-03-02 04:47:00 98.6 F [facility] Heart Rate 2021-03-02 04:47:00 [facility] Respitory Rate 2021-03-02 04:47:00 [facility] al Syed Systolic (mm Hg) 2021-03-02 04:47:00 Ervin rial Syed Diastolic (mm Hg) 2021-03-02 04:47:00 Mem [facility] Height 2021-03-01 10:47:00 165.1 cm [facility] Weight 2021-03-01 10:47:00 [facility] BMI Calculated 2021-03-01 10:47:00 [facility] Height 2021-02-28 20:38:00 165.1 cm [facility] BMI Calculated 2021-02-28 20:38:00 [facility] Weight 2021-02-28 20:38:00 [facility] Respitory Rate 2020-02-07 19:00:00 [facility] al Syed Systolic (mm Hg) 2020-02-07 19:00:00 Ervin rial [facility] Diastolic (mm Hg) 2020-02-07 19:00:00 Mem orial [facility] Respitory Rate 2020-02-07 18:00:00 [facility] al Syed Systolic (mm Hg) 2020-02-07 18:00:00 Ervin rial [facility] Diastolic (mm Hg) 2020-02-07 18:00:00 Mem [facility] Respitory Rate 2020-02-07 17:02:00 [facility] Systolic (mm Hg) 2020-02-07 17:02:00 Ervin rial Syed Diastolic (mm Hg) 2020-02-07 17:02:00 Mem [facility] Height 2020-02-05 06:16:00 165.1 cm [facility] Weight 2020-02-05 06:16:00 [facility] BMI Calculated 2020-02-05 06:16:00 [facility] Systolic (mm Hg) 2016-03-01 12:10:00 Ervin rial Syed Diastolic (mm Hg) 2016-03-01 12:10:00 Mem orial Syed Respitory Rate 2016-03-01 12:10:00 [facility] Heart Rate 2016-03-01 12:10:00 [facility] Temperature Oral (F) 2016-03-01 12:10:00 98.1 F [facility] Systolic (mm Hg) 2016-03-01 09:50:00 Ervin rial [facility] Diastolic (mm Hg) 2016-03-01 09:50:00 Mem orial Syed Respitory Rate 2016-03-01 09:50:00 [facility] Temperature Oral (F) 2016-03-01 09:50:00 98.7 F [facility] Heart Rate 2016-03-01 09:50:00 [facility] Systolic (mm Hg) 2016-03-01 08:20:00 Ervin rial Syed Diastolic (mm Hg) 2016-03-01 08:20:00 Mem orial Syed Heart Rate 2016-03-01 08:20:00 [facility] Temperature Oral (F) 2016-03-01 04:50:00 97.6 F [facility] Respitory Rate 2016-03-01 04:50:00 [facility] BMI Calculated 2016-02-29 07:39:00 [facility] Weight 2016-02-29 07:39:00 [facility] Height 2016-02-29 07:39:00 165.1 cm [facility] Procedures Procedure Date / Time Performing Clinician Source Performed EXTERNAL PROVIDER RECORDS 2022-10-25 06:01:00 Doctor Unassigned, [facility] COVID-19 (ID NOW RAPID 2022-10-17 17:25:00 Alvina Wall [facility] TESTING) [facility] LAB ONLY COVID 2022-10-17 17:25:00 Alvina Wall [facility] INTERPRETATION [facility] MAGNESIUM 2022-10-17 11:27:00 Mae [facility] BASIC METABOLIC PANEL (NA, 2022-10-17 11:27:00 Mae [facility] K, CL, CO2, GLUCOSE, BUN, [facility] CBC WITH DIFF 2022-10-17 10:20:00 Mae [facility] CYCLIC CITRULLINATED 2022-10-16 11:08:00 Luis Michaels [facility] MAGNESIUM 2022-10-15 10:59:[address] [facility] BASIC METABOLIC PANEL (NA, 2022-10-15 10:59:00 Chirag Arriola [facility] K, CL, CO2, GLUCOSE, BUN, Medica l Branch CREATININE, [place]) CBC WITH DIFF 2022-10-15 10:59:[address] [facility] BASIC METABOLIC PANEL (NA, 2022-10-14 22:16:00 Mae [facility] K, CL, CO2, GLUCOSE, BUN, [facility] CREATININE[place]) CBC WITH DIFF 2022-10-14 22:15:00 Mae [facility] US DUPLEX VENOUS ARM LEFT 2022-10-14 16:30:00 Carson Michaels [facility] - BY VASCULAR LAB [facility] BASIC METABOLIC PANEL (NA, 2022-10-13 06:58:00 Ann Michaels ra [facility] K, CL, CO2, GLUCOSE, BUN, [facility] CREATININE, CA) CBC WITH DIFF 2022-10-13 06:58:00 Luis Michaels [facility] ACTIVATED PARTIAL THRMPLAS 2022-10-12 08:51:00 Yoel Mantilla [facility] ACTIVATED PARTIAL THRMPLAS 2022-10-11 21:07:00 Yoel Mantilla [facility] MAGNESIUM 2022-10-11 09:06:00 Yoel Mantilla [facility] RHEUMATOID FACTOR 2022-10-11 09:06:00 Florencio [facility] C-REACTIVE PROTEIN 2022-10-11 09:06:00 Carlos [facility] BASIC METABOLIC PANEL (NA, 2022-10-11 09:06:00 Yoel Mantilla [facility] K, CL, CO2, GLUCOSE, BUN, [facility]ica [facility] CREATININE, CA) VANCOMYCIN RANDOM LEVEL 2022-10-11 09:06:00 [place] [facility] SEDIMENTATION RATE 2022-10-11 09:06:00 Carlos [facility] CBC WITH DIFF 2022-10-11 09:06:00 Yoel Mantilla [facility] ACTIVATED PARTIAL THRMPLAS 2022-10-11 09:06:00 Yoel Mantilla [facility] XR WRIST 3+ VW LEFT 2022-10-10 22:31:13 Yoel Mantilla [facility] XR CHEST 1 VW 2022-10-10 22:30:54 Yoel Mantilla [facility] CT WRIST LEFT WO CONTRAST 2022-10-10 22:30:32 Yoel Mantilla [facility] CT THORAX WO CONTRAST 2022-10-10 22:30:06 Yoel Mantilla [facility] CT SOFT TISSUE NECK WO 2022-10-10 22:29:46 Yoel Mantilla [facility] CT HEAD WO CONTRAST 2022-10-10 22:29:29 Yoel Mantilla [facility] ACTIVATED PARTIAL THRMPLAS 2022-10-10 20:23:00 Yoel Mantilla [facility] TRANSTHORACIC ECHO (TTE) 2022-10-10 16:40:25 Yoel Mantilla [facility] W/ CONTRAST Medical [facility] BLOOD CULTURE SCREEN 2022-10-10 14:18:00 Yoel Mantilla [facility] MRSA / MSSA SCREEN BY PCR, 2022-10-10 14:16:00 [facility] 2022-10-10 14:14:00 Yoel Mantilla [facility] URINE CULTURE 2022-10-10 14:14:00 Yoel Mantilla [facility] CREATININE, URINE RANDOM 2022-10-10 14:14:00 Yoel Mantilla [facility] UREA NITROGEN, URINE 2022-10-10 14:14:00 Yoel Mantilla [facility] FREE T4 2022-10-10 13:47:00 LogYoel cabral [facility] VANCOMYCIN RANDOM LEVEL 2022-10-10 13:47:00 Yoel Mantilla [facility] IONIZED CALCIUM 2022-10-10 13:45:00 Yoel Mantilla [facility] FREE T4 2022-10-10 13:45:00 Yoel Mantilla [facility] INTACT PTH CALCIUM GROUP 2022-10-10 13:45:00 Yoel Mantilla [facility] IRON PANEL 2022-10-10 13:45:00 Yoel Mantilla [facility] ANTI-NUCLEAR ANTIBODY 2022-10-10 13:45:00 Robert Matias [facility] VITAMIN D, 25-OH 2022-10-10 13:45:00 Yoel Mantilla [facility] ANTI-NUCLEAR 2022-10-10 13:45:00 Robert Matias [facility] ANTIBODY-PATHOLOGIST Medical [facility] INTERPRETATION PROTHROMBIN TIME / INR 2022-10-10 13:36:00 Yoel Mantilla [facility] ACTIVATED PARTIAL THRMPLAS 2022-10-10 13:36:00 Yoel Mantilla [facility] PHOSPHORUS 2022-10-10 13:35:00 Yoel aMntilla [facility] MAGNESIUM 2022-10-10 13:35:00 Yoel Mantilla [facility] FERRITIN SERUM 2022-10-10 13:35:00 Annalee [facility] VITAMIN B12, LEVEL 2022-10-10 13:35:00 Yoel Mantilla [facility] FOLATE 2022-10-10 13:35:00 Annalee [facility] TROPONIN I 2022-10-10 13:35:00 [facility] 2022-10-10 13:35:00 Yoel Mantilla [facility] HORMONE [facility] HEPATIC FUNCTION PANEL 2022-10-10 13:35:00 Yoel Mantilla [facility] ([id number]) (ALB,T.PRO,BILI [facility] T,BU/BC,ALT,AST,ALK PHOS) BASIC METABOLIC PANEL (NA, 2022-10-10 13:35:00 Yoel Mantilla [facility] K, CL, CO2, GLUCOSE, BUN, [facility] CREATININE, [place]) LIPID PANEL ([id number])(TOTAL 2022-10-10 13:35:00 Yoel Mantilla [facility] CHOLESTEROL, [facility] TRIGLYCERIDES, HDL) N-TERMINAL PRO-BNP 2022-10-10 13:35:00 Yoel Mantilla [facility] CBC WITH DIFF 2022-10-10 13:34:00 Annalee [facility] GLYCOSYLATED HEMOGLOBIN 2022-10-10 13:34:00 Annalee [facility] ([facility] HOSPITAL ADMISSION 2022-10-10 06:01:00 Doctor Unassigned, [facility] Injection(s); single or 2022-08-03 14:23:00 Ervin Lynch multiple trigger point(s), 1 or 2 muscle(s) POCT URINALYSIS AUTO 2021-07-12 15:33:00 Julia [facility] CT, thoracic spine, w/o 2021-06-02 00:00:00 [facility] MRI, thoracic spine, w/o 2021-06-01 00:00:00 [facility] XR, ankle 2021-05-31 00:00:00 [facility] XR, thoracic spine 2021-05-31 00:00:00 [facility] XR, abdomen 2020-11-08 00:00:00 [facility] XR, hip, unilateral 2020-08-19 00:00:00 [facility] FLOYD TIM NEW BLD CLL 2020-07-17 00:00:00 [facility] Procedure on Heart 2020-04-11 00:00:00 [facility] XR, foot 2019-06-09 00:00:[address] [facility] [address], pelvis, w/o contrast 2019-03-03 00:00:00 [facility] Shoulder Joint Surgery [facility] Removal of Thyroid [facility] Bladder Suspension [facility] Oophorectomy [facility] Partial Hysterectomy [facility] Correction of Scoliosis [facility] Procedure on Hip [facility] Hernia Repair [facility] Stomach Surgery Procedure [facility] Cholecystectomy [facility] Appendectomy [facility] adenoidectomy Hip arthroplasty [facility] Fusion of cervicothoracic [facility] region of spine by anterior approach Thyroidectomy [facility] Laparoscopic [facility] cholecystostomy Oophorectomy [facility] Encounters Start End Encounter Admission Attending Care Care Encounter Source Date/Time Date/Time Type Type Clinicians Facility Department ID 2023-04-16 Outpatient [id number] [id number] [facility] 11:11:28 [id number] 2D-4339-B77 92D-4339- B l -P088-C59 [id number] Syed [id number] BB9 95BBB9 2023-04-08 Outpatient [id number] 17C9-9 [facility] 05:19:53 924C-4ADC 4C-4ADC-B2E 24C-4ADC- B l -W2Z9-Y7U 2-J6PJI9N78 9L5-Q1PUE5 Syed [id number] 028 [id number] 2023-04-08 Outpatient [id number]- [id number] C1A9 528C-8 [facility] 04:48:11 7XJ8-3R42 D2-5J75-PT6 ED2-4E58- A l -JS13-CJ5 1-AV6XRJ278 C67-IL5JCL [facility] MXR756EEK FAA 814FAA 2023-04-08 Outpatient [id number]- 35CS2R36-5C 53FB 0B29-5 [facility] 04:44:45 3N51-5622 07-4321-A4C U61-8693- A l -U6QD-899 [id number] 4CE-446106 Syed [id number] 4979-03-07 Outpatient [id number] F0C1 7977-A [facility] 14:19:15 R911-7DFL 20-4CBB-98B 520-4CBB- 9 l -98BD-987 D-663JRL3FP 8BD-987EBD Syed OZW0BG4U0 3B4 1FD3B4 2023-01-15 Outpatient [id number]- SO5M2V6Q-71 FB9C 1B2B-0 [facility] 11:22:59 09DE-4EF5 DE-2BC8-102 9DE-4EF5- 8 l -883B-FB6 B-CE8FXP18N 83B-FB6AAC Syed FPF28DAFH AMANDA 69ADEE 2023-01-15 Outpatient 2JA5XGL8- 0TE1WUP3-E5 4FB8 FCA2-D [facility] 11:20:30 P188-2371 95-4272-90C 495-4272- 9 l -90CC-6B1 C-7A007334P 0CC-8G5626 Syed [id number] 799 46R430 2023-01-09 Outpatient 4V390J2Y- 2T984R2X-L0 7D35 6F7E-B [facility] 18:37:18 F346-800X 93-419E-B9F 593-419E- B l -D9H9-B45 0-G4225XPV8 8Y8-P9097N [facility] 66RWB80K7 2A9 DE72A9 2023-01-09 Outpatient [id number]- 0Y0N1389-I8 0A3D 0775-A [facility] 18:32:59 I841-1STS 89-4ACD-9C8 589-4ACD- 9 l -2E1X-S1P B-V8AGB12WI U7B-E8PWG6 [facility] GZ87NCP81 D04 4CFD04 2023-01-08 Outpatient 5CY4L3W7- 6ZT6G0B1-XH 4DA9 D0D1-F [facility] 10:18:05 TJ61-0Q2M 47-1M3A-2P4 Z63-4T8Z- 8 l -7T0T-0Z2 A-6U46D1981 I8L-4P57S2 [facility] [id number] 07B 08766V 2023-01-08 Outpatient 7M41Y1Q5- 3Z66C7Q0-83 0F54 F2F4-3 [facility] 10:14:25 32FF-4FA7 FF-1OJ3-324 2FF-4FA7- 8 l -8442-3DE 2-0YL4937L4 442-6UY096 [facility] 6332G03CK 1BC 7B11BC 2022-10-25 Outpatient [id number]- 837GB70V-OW 928A A64B-F [facility] 01:25:31 FDCB-4985 CB-4985-AA6 DCB-4985- A l -IJ73-U1M 2-C2SVSO05F W07-E6RAMT Syed NIO78M0S3 7B1 48D7B1 2022-10-25 Outpatient [id number]- 18UW74E1-68 86CF 98D4-3 [facility] 01:23:56 8776-6921 92-4891-AB1 092-4891- A l -UW83-9M5 7-9T6C3GDXS C33-2E7U2W [facility] V6OAYK1G3 9B9 BEE9B9 2022-10-13 Outpatient 38JMLP82- 42JDEX80-V5 24FA BD89-B [facility] 10:30:59 T73R-9832 0B-4112-9DA 20B-4112- 9 l -9DAE-9BE E-7HR6BS37H ZAHIRA-9BE4CF Syed 2QA19YZA0 BD7 33ABD7 2022-10-10 Outpatient [id number]- 7I8WT043-AX 9C7C A276-F [facility] 07:00:53 HK66-711T 83-461E-A4F Z34-671C- A l -U4MY-G78 E-C0216T0I0 4FE-M2438J Syed 59K8W323B 04B 9I547Z 2022-10-09 Outpatient [id number]- [id number] 0062 393F-3 [facility] 09:39:15 3058-3496 10-4547-B31 710-4547- B l -C85S-431 D-717NNH4ME 31D-908EBA Syed MGJ9AFV97 C17 6EDC17 2022-10-09 Outpatient [id number]- [id number] D339 537A-E [facility] 09:37:02 AB17-9203 69-4976-B5E U07-7356- B l -A4RW-5QZ E-6XX150DZH 5EE-4YV343 Syed 454CIC1M5 7B2 CCF7B2 2022-09-29 Outpatient RSQR86E3- CBJK20S9-31 BCFF 00B5-3 [facility] 16:38:33 3857-4F5A 57-4Q8A-F86 857-4F5A- A l -B38M-WD8 F-XW53CJ403 80F-BE59BF Syed [id number] 06F 83628H 2022-09-29 Outpatient [id number]- 1DU1813Q-44 9AF1 838C-6 [facility] 14:45:56 23Z8-127V E0-473A-B0F 2Z2-589N- B l -X6B5-80E 7-35HNUE346 2P8-20ISNI Syed IPD294Z67 F39 233F39 2022-09-29 Outpatient 057UT1ZB- 746JR0NV-45 876D B0CB-8 [facility] 14:44:15 06C3-7P01 F1-7N80-A69 2A0-3X32- B l -P540-8D9 0-4X37M76Y9 080-5F38C5 Syed [id number] 749 8P9634 2022-09-22 Outpatient [id number]- 118L04V8-53 190B 80D8-5 [facility] 10:27:08 27X6-4Q66 F9-8B06-U42 8V6-9V50- B l -B303-M8Y 5-E8CZ068KX 765-C2DA61 Syed [id number] 669 7TZ720 2022-09-22 Outpatient [id number]- 7T9272UW-96 7B00 98CF-1 [facility] 10:25:33 1215-47C5 15-59W7-42Q 215-47C5- 9 l -27D9-371 7-757Q47V21 7U2-678E61 Syed S00A3692K 73A P1215C 2022-09-08 Outpatient POBO251C- VHSU938M-B7 CDCA 863C-E [facility] 09:09:02 J787-78YB 16-40FE-96E 916-40FE- 9 l -96ED-FE4 D-RX28UY915 6ED-FE47DB Syed [id number] 839 202353 4343-10-29 Outpatient [id number]- LTTO5623-X4 ECAA 3462-C [facility] 09:07:20 C9BD-314Z EE-461F-8EC 9EE-461F- 8 l -8ECD-A3E D-D3P2EIO10 SUPERVISOR GLUING-A3E5DE Syed 5MSY712O0 3E1 C523E1 2022-07-18 Outpatient [id number]- 4H520PZU-86 8C14 4ADC-7 [facility] 12:51:31 7213-439C 13-439C-B0A 213-439C- B l -X1Z5-F0W 2-J1FD36Y48 3D1-U1DE76 Syed [id number] 459 H25407 2022-07-18 Outpatient [id number]- 1D729GZ4-18 3D21 0FC8-4 [facility] 08:32:49 49BA-4D1B BA-5Q1V-18O 9BA-4D1B- 8 l -80DA-D12 A-E17GU3B59 0DA-D12CD9 Syed IA0K97KU9 DF2 E12DF2 2022-07-18 Outpatient [id number]- 0WT807J1-4B 1BD0 68A6-9 [facility] 08:30:10 3Y16-5472 41-4482-B86 Z02-9747- B l -J02N-DS3 A-CU11CHV1L 86A-EB61BB Syed 5VAN4BS38 E15 E8AE15 2022-05-29 Outpatient [facility] [id number] [place] 09:20:16 [id number] Health 2022-01-23 Outpatient [facility] [id number] [place] 10:48:28 Health 2021-12-06 Outpatient STLMLC STLM [id number] [facility] 13:46:49 [id number] [facility] 2021-08-01 Outpatient [id number]- F444P0W2-J8 E862 D3E1-F [facility] 01:49:05 F4M0-61W2 A2-48D5-IY4 3K5-20T4- A l -HO13-H21 0-N86V163M7 P85-Z35A96 Syed T995I51G0 8A7 6A28A7 2021-07-31 Outpatient [id number]- 5U76Z39V-R0 9B92 D44C-F [facility] 23:06:31 E724-31CT 84-48AF-911 384-48AF- 9 l -911B-94F B-84UYH42H7 11B-94FCE7 Syed BT62L12V2 9A7 3C69A7 2021-07-31 Outpatient 1NBP7E0E- 7GMA8N7V-G5 9ABD 2C8E-D [facility] 23:04:10 A342-964C 85-450F-AE7 885-450F- A l -KN5Q-801 B-183L872ER R7J-146O84 Syed [id number] 636 7KQ061 2021-07-25 Outpatient [id number]- X5EAI187-PI D0DE F601-B [facility] 05:36:05 BBF6-4C4C F6-4N3N-M5M BF6-4C4C- A l -H3J2-049 1-969G4C45R 3Y5-534Q7T Syed R3I00Z4B0 1D6 19D1D6 2021-07-23 Outpatient [id number]- 2D433N94-0M 5A06 1A22-4 [facility] 04:21:42 2XV0-2TI1 F9-6CJ0-114 DF9-4AA8- 9 l -963B-6FF B-1WL3L998D 63B-6FF7E6 Syed 4B530F5Q6 5D0 66E5D0 2021-07-23 Outpatient 7C02U9J3- 5T63H3E2-FD 9E14 D4B6-B [facility] 04:20:44 FQ67-254W 28-470F-BF2 W10-809N- B l -EV3E-R05 A-X079612D9 O0A-L61080 Syed 4807Q0P60 C72 3D3C72 2021-07-22 Outpatient 1668NNA2- 1334ORK4-46 9247 AFC8-7 [facility] 16:39:09 774A-4AFE 4A-4AFE-9C0 74A-4AFE- 9 l -6L76-Z96 5-G945PQ183 R88-O247HQ Syed 0GO1949XA 0DC 1050DC 2021-07-22 Outpatient 0NSYF17K- 1OSRS45S-3X 8ECE F40D-2 [facility] 16:37:24 8R25-0D89 18-3H23-Y4K X21-4J18- B l -M4ZD-UA0 B-NB95ST246 0BB-AF70BD Syed [id number] 83E 80278J 2021-07-16 Outpatient [id number]- E41DF390-28 C18D C132-6 [facility] 01:14:08 04H6-57I1 A4-38P7-161 1J7-74G2- 8 l -8482-F1E 2-Z4BN21SIQ 482-F1EE45 Syed B33CTA380 794 TUE116 2021-07-15 Outpatient 3IJ7O3S5- 1GC0Z3V7-0Y 4CE5 A1A6-0 [facility] 13:31:44 3A32-269E 43-403A-973 D49-438R- 9 l -9739-E29 9-R54X6CZR2 739-E29F1B Syed U4YVW58LU 7EF EC57EF 2021-07-15 Outpatient 65YBW8CQ- 84XVF8OH-46 64DA A5CF-2 [facility] 13:29:59 2867-469A 67-469A-81D 867-469A- 8 l -81DF-428 F-947L9M85Q 1DF-428A5A Constantia X9U93WUQ6 DE4 49FDE4 2021-07-12 Outpatient 6M2ABWA1- 1Q1QRLA2-R7 6A8C CDA9-C [facility] 09:08:35 C46U-6372 4D-4203-923 14D-4203- 9 l -923C-16B C-85FDATO60 23C-16BEBA Syed NJYB098O9 4E5 E074E5 2020-05-16 Inpatient 2 Brooks Preston [facility] [id number] 12:31:00 Brooks Preston [facility] 2023-04-08 2023-04-09 Inpatient ER ANKITA [facility] [id number] [place] 05:14:00 18:54:00 CATIA -[id number] [facility] 2023-03-27 2023-03-27 [id number]30 [place] 00:00:00 00:00:00 517 [facility] 2023-02-19 2023-02-19 Outpatient Zuniga_F MM MMG 1503-2 0230 [place] 00:00:00 00:00:00 411 [facility] 2023-01-19 2023-01-19 Outpatient LEIDA ELIZABETH [facility] [id number] [place] 10:26:00 10:26:00 CORNEL -[id number] [facility] 2023-01-15 2023-01-18 Inpatient ER Shaw, [facility] [id number] [place] 13:44:00 18:42:00 Umair -[id number] [facility] 2023-01-09 2023-01-09 Emergency ER Jose Juan, [facility] [id number] [place] 18:31:00 19:40:00 Jia -[id number] [facility] 2023-01-08 2023-01-08 Emergency ER PAULINO, [facility] [id number] [place] 10:11:00 14:59:00 PATRICIA -[id number] [facility] 2022-11-12 2022-11-12 Outpatient Pablito_F MMG [facility] [id number] 0230 [place] 00:00:00 00:00:00 102 [facility] 2022-11-09 2022-11-09 Outpatient LEIDA ELIZABETH, [facility] [id number] [place] 19:33:00 19:33:00 CORNEL -[id number] [facility] 2022-10-31 2022-10-31 Outpatient LEIDA TAN, [facility] [id number] 109 [place] 10:46:00 10:46:00 LUIS -[id number] [facility] 2022-10-25 2022-10-29 Inpatient [facility] [id number] [facility] 11:59:00 00:57:00 Syed [facility] [place] [place] 2022-10-25 2022-10-29 Inpatient [facility] [id number] [facility] 11:59:00 00:57:00 Syed [facility] [place] 2022-10-25 2022-10-28 Outpatient Cezar, [facility] [id number] 05:59:00 18:57:00 Amir 49 2022-10-25 2022-10-28 Outpatient Cezar, [facility] [id number] 05:59:00 18:57:00 Amir 49 2022-10-25 2022-10-28 Inpatient CEZAR, [facility] MED [id number] MHFB 05:59:00 18:57:00 AMIR 2022-10-25 2022-10-25 Emergency ER KAHLIL, [facility] [id number] [id number] [place] 01:23:00 05:05:00 TALHA -[id number] [facility] 2022-10-25 2022-10-25 Orders Doctor NII 1.2.840.114 [id number] Univers 00:00:00 00:00:00 Only Unassigned, ABELINO [id number] ity of [facility] 4.2.7.2.686 [facility] [id number] [facility] [address] 2022-10-24 2022-10-24 Outpatient LEIDA ATN, [facility] [id number] [place] 23:37:00 23:37:00 [id number] [facility] 2022-10-10 2022-10-17 Inpatient U ANGELA, [facility] [id number] Univers 07:00:00 19:45:00 TRACEY ity of [facility] 2022-10-10 2022-10-17 [facility] Alvina Breen 1. 2.840.114 [id number] [facility] 07:00:00 19:45:00 Encounter Tracey Pan ABELINO [id number] ity of [facility] 4.2.7.2.686 [place] [id number] [facility] [address] 2022-10-09 2022-10-10 Emergency ER CHIARAUONISHI, [facility] [id number] [place] 09:35:00 04:51:00 SOCORRO -[id number] [facility] 2022-10-07 2022-10-07 Outpatient MOLINA TAN [facility] [id number] [place] 20:58:00 20:58:00 LUIS [id number] [facility] 2022-10-03 2022-10-03 Outpatient LEIDA TAN [facility] [id number] [place] 07:53:00 07:53:00 LUIS [id number] [facility] 2022-09-29 2022-10-02 Inpatient ION GARCIA [facility] D000 [id number] [place] 16:29:00 16:45:00 -[id number] [facility] 2022-09-22 2022-09-22 Emergency ER Goff, [facility] [id number] [place] 10:23:00 14:27:00 Sebas -[id number] [facility] 2022-09-08 2022-09-08 Emergency ER ALANIS, [facility] [id number] [place] 09:05:00 12:17:00 SAVANAH -[id number] [facility] 2022-09-02 2022-09-03 Emergency ER CATANESCU, [facility] [id number] [place] 20:04:00 05:30:00 DANA -[id number] [facility] 2022-07-22 2022-08-05 Inpatient nullFlavo [facility] [id number] [facility] 20:59:00 16:30:[address] 2022-07-22 2022-08-05 Inpatient nullFlavo [facility] [id number] [facility] 20:59:00 16:30:00 Rehab r [address] 2022-07-22 2022-08-05 Outpatient Isaias TIR MHTIRR [id number] 15:59:00 11:30:00 Alida Rojas 2022-07-18 2022-07-22 [facility]atio [facility] [id number] [facility] 22:56:00 20:29:[address] 2022-07-18 2022-07-22 [facility]atio [facility] [id number] [facility] 22:56:00 20:29:00 luda Lynch [address] [place] [address] 2022-07-18 2022-07-22 Outpatient Kasia [facility] [id number] 17:56:00 15:29:00 Colt Cuenca 50 2022-07-18 2022-07-22 Outpatient Kasia [facility] [id number] 17:56:00 15:29:00 Colt Cuenca 50 2022-07-18 2022-07-22 Outpatient U KSAIA [facility] [id number] [facility] 17:56:00 15:29:00 COLT 2022-07-20 2022-07-20 Outpatient Zuniga_F [facility] [id number] [place] 00:00:00 00:00:00 909 [facility] 2022-07-18 2022-07-18 Emergency ER ZEKE, [facility] [id number] [place] 08:28:00 14:36:00 ADIANES -[id number] [facility] 2022-07-02 2022-07-02 Emergency ER KALINA, [facility] [id number] [place] 13:33:00 17:46:00 SAM -[id number] [facility] 2022-06-21 2022-06-21 Outpatient Zuniga_F [facility]G [id number] [place] 00:00:00 00:00:00 811 Medical Group 2022-06-18 2022-06-18 Outpatient PHILIP, [facility] [id number] [place] 11:30:00 11:30:00 RAFAEL Health 2022-05-29 2022-05-29 Telephonic ELLEN Palacios [id number] 1.2.840.114 [id number] [place] 14:00:00 14:15:[address] [id number] Health 9.2.7.2.686 [id number] 1 2022-05-28 2022-05-28 Telephone Molly Jacinto [id number] 1.2.840 .114 [id number] [place] 00:00:00 00:00:[address] [id number] Health 9.2.7.2.686 [id number] 1 2022-05-24 2022-05-24 Outpatient SIMI_HERMELINDA ANDRADE [facility] [place] 02:46:00 02:46:00 0714 da [facility] Outre h Program 2022-05-23 2022-05-23 Telephone Molly Jacinto [id number] 1.2.840 .114 [id number] [place] 00:00:00 00:00:[address] [id number] Health 9.2.7.2.686 [id number] 1 2022-05-22 2022-05-22 Outpatient LEIDA PALACIOS [facility] [id number] [place] 14:36:00 14:36:00 RAFAEL -[id number] [facility] 2022-05-22 2022-05-22 Umair Shaw_F [facility] [place] - [id number] [place] 00:00:00 00:00:00 Armani Motta [facility] Medical MD: [address] [facility] [address], [place] [address] , Ph. 2022-05-21 2022-05-21 Outpatient LEIDA Shaw [facility] [id number] [place] 17:58:00 17:58:00 Umair -[id number] Community Health 2022-05-15 2022-05-15 Outpatient [facility] [id number] [place] 11:30:00 11:30:00 Health 2022-05-15 2022-05-15 Outpatient TANYA, [facility] [id number] [place] 11:15:00 11:15:00 [facility] Health 2022-04-06 2022-04-08 Inpatient ALKA ESPINOSA, [facility] [id number] [place] 20:13:00 16:58:00 [facility] -[id number] Community Health 2022-03-17 2022-03-17 Outpatient LEIDA Shaw [facility] [id number] [place] 11:53:00 11:53:00 Umair -[id number] Community Health 2022-03-12 2022-03-12 Office Philip, [facility] [id number] [place] 12:00:00 12:12:20 Visit Rafael WILMAR MIRELES [id number] Health [id number] [id number] 1 2022-02-23 2022-02-23 Outpatient LEIDA Shaw [facility] [id number] [place] 08:01:00 08:01:00 Umair -[id number] Community Health 2022-02-17 2022-02-17 Outpatient Patricio MMG MMG [id number] [place] 01:28:00 01:28:00 409 Medical Group 2022-01-30 2022-01-30 Outpatient LEIDA Shaw [facility] [id number] [place] 06:50:00 06:50:00 Umair -[id number] Community Health 2022-01-29 2022-01-29 Office Tanya, [facility] [id number] [place] 10:30:00 11:21:16 Visit Ladan DUNIN [id number] [facility] [id number] 1 2022-01-22 2022-01-22 [facility] [id number] [place] 09:45:00 09:45:00 [facility] 2021-12-28 2022-01-10 Inpatient [facility] [id number] [place] 20:31:00 20:00:[address] 2021-12-28 2022-01-10 Inpatient [facility] [id number] [place] 20:31:00 20:00:[address] 2021-12-29 2022-01-10 Inpatient Anisa PHAN, [address] 00:18:00 14:00:00 PANCHITO 2021-12-28 2022-01-10 Outpatient Ty [facility] [id number] 14:31:00 14:00:00 Panchito 00 [facility] 2021-12-28 2022-01-10 Outpatient Ty [facility] [id number] 14:31:00 14:00:00 Panchito 00 [facility] 2021-12-28 2021-12-28 Outpatient Gerhard [facility] [id number] 14:31:00 14:31:00 Shifa 00 2021-12-28 2021-12-28 Emergency TR ZEKE, [facility] [id number] [place] 10:48:00 13:03:00 SAVANAH -[id number] [facility] 2021-12-06 2021-12-06 Outpatient Zuniga_F MMG [facility] [id number] [place] 05:49:00 05:49:00 126 Medical [facility] 2021-12-01 2021-12-03 Inpatient ER JESÚS, [facility] [id number] [place] 18:45:00 14:16:00 [facility] -[id number] Community Health 2021-11-30 2021-11-30 Emergency ER BLACK TAYLOR [facility] [id number] [place] 12:51:00 16:49:00 -[id number] [facility] 2021-11-22 2021-11-22 Outpatient LEIDA MCKEON, [facility] [id number] [place] 05:53:00 05:53:00 [id number] Community Health 2021-11-15 2021-11-15 Outpatient MOLINA MCKEON, [facility] [id number] [place] 11:40:00 11:40:00 [id number] Community Health 2021-11-09 2021-11-09 Umair Earluniga_F MMG [place] - [id number] 11 [place] 00:00:00 00:00:00 Armani Eaton 230 marley Shaw Medical Medical MD: [address] [facility] [address], [place] [address] , Ph. 2021-11-05 2021-11-07 Inpatient ER ANKITA, [facility] [id number] [place] 17:25:00 15:14:00 CATIA -[id number] Community [facility] 2021-10-30 2021-10-30 Umair Zuniga_F MMG [place] - [id number] 11 [place] 00:00:00 00:00:00 Armani Eaton 220 marley Shaw Medical Medical MD: [address] [facility] [address], [place] [address] , Ph. 2021-10-27 2021-10-29 Inpatient ER IHDE, ION [facility] MED [id number] [place] 16:59:00 12:00:00 -[id number] [facility] 2021-10-19 2021-10-19 Outpatient LEIDA MCKEON [facility] [id number] [place] 10:34:00 10:34:00 RACHEL -[id number] Community Health 2021-10-11 2021-10-11 Outpatient Zuniga_F MMG MMG [id number] [place] 03:55:00 03:55:00 201 [facility] 2021-10-06 2021-10-10 Inpatient ER Shaw, [facility] [id number] [place] 11:22:00 16:05:00 Umair -[id number] Community [facility] 2021-09-21 2021-09-21 Outpatient EL Pablito, [facility] [id number] [place] 10:43:00 10:43:00 Umair -[id number] [facility] 2021-08-31 2021-08-31 Outpatient Zuniga_F MMG MMG [id number] [place] 01:38:00 01:38:00 021 [facility] 2021-08-24 2021-08-24 Outpatient Zuniga_F MMG MMG [id number] [place] 04:55:00 04:55:00 014 [facility] 2021-08-01 2021-08-05 Inpatient ER Shaw, [facility] [id number] [place] 01:43:00 13:17:00 Umair -[id number] [facility] 2021-07-24 2021-07-24 Umair Zuniga_F MMG [place] - 1503-202 10 [place] 00:00:00 00:00:00 Reagan Gonzalez Medical MD: [address] [place] [address] , Ph. 2021-07-23 2021-07-23 Emergency ER AARON [facility] [id number] [place] 04:18:00 09:11:00 MATT -[id number] [facility] 2021-07-22 2021-07-22 Emergency ER TRISHA CASTRO [facility] [id number] [place] 16:36:00 20:13:00 -[id number] Community Health 2021-07-14 2021-07-16 Inpatient ER Pablito [facility] [id number] [place] 17:12:00 17:58:00 Umair -[id number] Community [facility] 2021-07-14 2021-07-14 Case Gramm, [facility] [id number] Univers 00:00:00 00:00:00 Management Julia Sullivan [id number] [id number] [address] 2021-07-12 2021-07-12 [facility] [id number] [id number] Univers 09:07:49 10:57:16 Visit Julia Sullivan 350.1.13.10 [place] [id number] [address] 2021-07-12 2021-07-12 Outpatient R GRAMM, [facility] [id number] Univers 09:30:00 09:30:00 JULIA luna [facility] 2021-07-11 2021-07-11 Emergency ER ROLDAN, [facility] [id number] [place] 08:39:00 15:10:00 WASIM -[id number] [facility] 2021-07-08 2021-07-08 Emergency ER HILARIO, [facility] [id number] [place] 10:20:00 15:15:00 FELIPE -[id number] [facility] 2021-07-03 2021-07-03 Outpatient R ONOFRE, [facility] [id number] Univers 10:15:00 10:15:00 RHEA berumeny [facility] 2021-06-23 2021-06-23 Outpatient Zuniga_F MMG G [id number] [place] 10:46:00 10:46:00 813 [facility] 2021-06-19 2021-06-19 Merlin Gautamiga_F MMG [place] - [id number] 0 [place] 00:00:00 00:00:00 Discovery Melinda 809 marley MD: [address] [place] [address] - [address], [place] [address] , Ph. [phone] 2021-06-08 2021-06-08 Outpatient LEIDA Shaw, [facility] [id number] [place] 09:20:00 09:20:00 Umair -[id number] [facility] 2021-06-07 2021-06-07 Outpatient LEIDA Shaw, [facility] [id number] [place] 15:25:00 15:25:00 Umair -[id number] [facility] 2021-06-01 2021-06-01 Outpatient LEIDA Shaw, [facility] [id number] [place] 10:54:00 10:54:00 Umair -[id number] [facility] 2021-05-31 2021-05-31 Umair Pablito_F [facility] [place] - 1503-202 10 [place] 00:00:00 00:00:00 Armani Eaton 721 Pablito [facility] MD: [address] [place] [address] Family [address], [place] [address] , Ph. 2021-05-23 2021-05-23 Outpatient LEIDA Shaw, [facility] [id number] [place] 12:15:00 12:15:00 Umair -[id number] Community [facility] 2021-04-19 2021-04-19 Outpatient Lotusiga_F MMG [facility] [id number] [place] 12:51:00 12:51:00 609 [facility] 2021-04-11 2021-04-11 Outpatient LEIDA Shaw, [facility] [id number] [place] 14:15:00 14:15:00 Umair -[id number] [facility] 2021-04-04 2021-04-04 Outpatient LEIDA Shaw, [facility] [id number] [place] 10:56:00 10:56:00 Umair -[id number] Community Health 2021-03-28 2021-03-28 Outpatient Zuniga_F MMG MMG [id number] [place] 05:11:00 05:11:00 518 Medical [facility] 2021-03-25 2021-03-25 Emergency ER GINGRICH, [facility] [id number] [place] 20:42:00 21:54:00 VIRY -[id number] [facility] 2021-03-23 2021-03-23 Outpatient Zuniga_F MMG MMG [id number] [place] 12:59:00 12:59:00 513 [facility] 2021-03-22 2021-03-22 Umair Zuniga_F MMG [place] - 1503-202 10 [place] 00:00:00 00:00:00 Armani Eaton 512 marley Shaw Medical Medical MD: [address] [place] [address] [address], [place] [address] , Ph. 2021-02-28 2021-03-02 [facility] [id number] Memoria 20:44:00 15:25:00 n lisette Lynch 00 l [facility] 2021-02-28 2021-03-02 Observatio [facility] 4699 [id number] Memoria 20:44:00 15:25:00 n lisette Lynch 00 l [facility] 2021-03-01 2021-03-02 Outpatient Anisa DORSEY [facility] [address] [place] [address] 03:09:00 10:25:00 APRIL 2021-02-28 2021-03-02 Outpatient Kimi [facility] [id number] 15:44:00 10:25:00 April 00 2021-02-28 2021-03-02 Outpatient Kimi [facility] [id number] 15:44:00 10:25:00 April 00 2021-02-15 2021-02-15 Outpatient G_Pappas MMG MMG [id number] [place] 05:20:00 05:20:00 407 da Medical [facility] 2021-02-08 2021-02-08 Outpatient G_Pappas MMG MMG [id number] [place] 10:21:00 10:21:00 331 da Medical [facility] 2021-02-06 2021-02-06 Merlin G_Pappas MMG [place] - [id number] 0 [place] 00:00:00 00:00:00 Discovery Melinda 329 da MD: [address] [place] [address], [place] [address] , Ph. [phone] 2021-01-31 2021-01-31 Outpatient LEIDA Shaw [facility] [id number] [place] 16:33:00 16:33:00 Umair -[id number] [facility] 2021-01-26 2021-01-26 Emergency TR ANGELITA, [facility] [id number] [place] 04:56:00 06:14:00 MAXIMILIAN -[id number] [facility] 2021-01-16 2021-01-16 Umair Zuniga_F MMG [place] - 1503- 10 [place] 00:00:00 00:00:00 Armani Eaton 308 Reagan Motta MD: [address] [place] [address] [address] [address] , Ph. 2021-01-12 2021-01-12 Outpatient Zuniga_F MMG MMG [id number] [place] 11:21:00 11:21:00 304 Medical [facility] 2020-12-31 2020-12-31 Outpatient Zuniga_F MMG MMG [id number] [place] 01:52:00 01:52:00 220 Medical [facility] 2020-12-21 2020-12-21 Outpatient LEIDA Shaw [facility] [id number] [place] 09:59:00 09:59:00 Umair -[id number] Community Health 2020-12-08 2020-12-08 Outpatient Renetta_Loree MMG MMG [id number] [place] 09:58:00 09:58:00 128 [facility] 2020-12-01 2020-12-01 Mariela Jackson_M MMG [place] - 1503-202 10 [place] 00:00:00 00:00:00 Amy Eaton 121 marley Jackson, Medical 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 2020-11-16 2020-11-16 Outpatient LEIDA SHAW, [facility] [id number] [place] 07:57:00 07:57:00 UMAIR [id number] [facility] 2020-11-10 2020-11-10 Outpatient LEIDA Shaw, [facility] [id number] [place] 15:48:00 15:48:00 Umair [id number] [facility] 2020-11-08 2020-11-08 Umair Earluniga_F MMG [place] - 1503-202 [place] 00:00:00 00:00:00 Armani Eaton 229 marley Shaw Medical Medical MD: [address] [place] [address] 201, [place] [address] , Ph. 2020-11-01 2020-11-01 Outpatient Zuniga_F MMG MMG [id number] [place] 10:33:00 10:33:00 222 [facility] 2020-10-19 2020-10-19 Outpatient Zuniga_F MMG MMG [id number] [place] 12:15:00 12:15:00 209 [facility] 2020-10-04 2020-10-04 Outpatient LEIDA Shaw, [facility] [id number] [place] 11:45:00 11:45:00 Umair [id number] [facility] 2020-09-28 2020-09-28 Outpatient Zuniga_F MMG MMG [id number] [place] 02:44:00 02:44:00 118 [facility] 2020-09-24 2020-09-24 Outpatient Zuniga_F MMG MMG [id number] [place] 01:01:00 01:01:00 114 [facility] 2020-08-30 2020-08-30 Umair Zuniga_F MMG [place] - 1503-202 [place] 00:00:00 00:00:00 Armani Eaton 020 Reagan Motta Medical MD: [address] [facility] [address], [place] [address] , Ph. 2020-08-29 2020-08-29 Outpatient LEIDA Shaw, [facility] [id number] [place] 16:27:00 16:27:00 Umair -[id number] [facility] 2020-08-25 2020-08-25 Outpatient LEIDA MCKEON, [facility] [id number] [place] 09:47:00 09:47:00 RACHEL -[id number] [facility] 2020-08-16 2020-08-16 Outpatient Zuniga_F MMG MMG [id number] [place] 10:52:00 10:52:00 006 [facility] 2020-08-15 2020-08-15 Outpatient LEIDA Shaw, [facility] [id number] [place] 16:26:00 16:26:00 Umair -[id number] [facility] 2020-08-15 2020-08-15 Umair Zuniga_F MMG [place] - 1503-202 [place] 00:00:00 00:00:00 Armani Eaton 005 Reagan Motta Medical MD: [address] [address], [place] [address] , Ph. 2020-07-26 2020-07-26 Outpatient Zuniga_F MMG MMG [id number] [place] 10:48:00 10:48:00 915 Medical [facility] 2020-07-26 2020-07-26 Outpatient Anamika URBANO [facility] [id number] [place] 09:30:00 09:30:00 EMMIE [facility] 2020-07-15 2020-07-19 Inpatient Anisa FLOR [facility] TELE [id number] [place] 00:53:00 16:11:00 NKOLI [facility] 2020-05-24 2020-05-24 Outpatient Zuniga_F MMG MMG [id number] [place] 05:03:00 05:03:00 714 [facility] 2020-05-16 2020-05-20 Inpatient ER Pablito [facility] MED [id number] [place] 10:54:00 14:19:00 Umair -[id number] [facility] 2020-05-20 2020-05-20 Outpatient Zuniga_F MMG MMG [id number] [place] 12:30:00 12:30:00 710 [facility] 2020-05-18 2020-05-18 Outpatient Zuniga_F MMG MMG [id number] [place] 03:58:00 03:58:00 708 [facility] 2020-05-17 2020-05-17 Outpatient Zuniga_F MMG MMG [id number] [place] 11:50:00 11:50:00 707 [facility] 2020-05-13 2020-05-13 Outpatient ARISTIDES SARKAR [facility] [id number] Univers 08:40:00 08:40:00 ARISTIDES CAMACHO [facility] 2020-05-11 2020-05-11 Emergency ER SOCORRO [facility] [id number] [place] 18:35:00 22:13:00 BARRETT -[id number] [facility] 2020-05-02 2020-05-02 Outpatient Zuniga_F MMG MMG [id number] [place] 11:51:00 11:51:00 622 [facility] 2020-04-26 2020-04-26 Outpatient ARISTIDES SARKAR [facility] [id number] Univers 08:40:00 08:40:00 ARISTIDES CAMACHO [facility] 2020-04-22 2020-04-23 Emergency ER SOCORRO, [facility] [id number] [place] 23:29:00 03:02:00 BARRETT -[id number] [facility] 2020-04-20 2020-04-20 Outpatient Zuniga_F MMG MMG [id number] [place] 05:30:00 05:30:00 610 [facility] 2020-04-19 2020-04-19 Outpatient LEIDA Shaw [facility] [id number] [place] 11:04:00 11:04:00 Umair -[id number] [facility] 2020-03-28 2020-03-29 Emergency ER SOCORRO, [facility] [id number] [place] 22:13:00 01:12:00 BARRETT -[id number] [facility] 2020-03-28 2020-03-28 Outpatient Zuniga_F MMG MMG [id number] [place] 11:54:00 11:54:00 518 [facility] 2020-03-08 2020-03-08 Outpatient LEIDA Shaw [facility] [id number] [place] 14:59:00 14:59:00 Umair -[id number] [facility] 2020-03-08 2020-03-08 Appointmen CORKY [facility] - [id number] [place] 12:30:00 12:30:00 t; , Lucas SHEN [facility] ben BATES M.D. Medical ans I, Doreen SHEN M.D. 2020-02-26 2020-02-26 Outpatient Zuniga_F MMG MMG [id number] [place] 10:49:00 10:49:00 417 [facility] 2020-02-25 2020-02-25 Umair Zuniga_F MMG [place] - 1503- 00 [place] 00:00:00 00:00:00 Armani Eaton 416 Reagan Motta Medical MD: [address] [place] [address] [address], [place] [address] , Ph. 2020-02-16 2020-02-16 Umair Zuniga_F MMG [place] - 150 00 [place] 00:00:00 00:00:00 Armani Eaton 407 Reagan Motta MD: 600 [facility] Family [address], [place] [address] , Ph. 2020-02-05 2020-02-07 Inpatient nullFlavo [facility] [id number] [place] 01:04:00 19:01:[address] 2020-02-05 2020-02-07 Inpatient nullFlavo [facility] [id number] [place] 01:04:00 19:01:[address] 2020-02-04 2020-02-07 Outpatient Ruth [facility] [id number] 20:04:00 14:01:00 Olivia [facility] 2020-02-03 2020-02-03 Outpatient Zuniga_F MMG MMG [id number] [place] 11:31:00 11:31:00 325 [facility] 2020-02-02 2020-02-02 Outpatient Zuniga_F MMG MMG [id number] [place] 04:35:00 04:35:00 324 [facility] 2020-01-26 2020-01-28 Inpatient ER Pablito [facility] MED [id number] [place] 11:02:00 00:16:00 Umair -[id number] [facility] 2020-01-27 2020-01-27 Outpatient Zuniga_F MMG MMG [id number] [place] 10:51:00 10:51:00 318 [facility] 2020-01-21 2020-01-21 Outpatient ION FARIAS [facility] [id number] [place] 16:39:00 16:39:00 -[id number] [facility] 2020-01-21 2020-01-21 Ion Elliottuniga_F MMG [place] - [id number] 0 [place] 00:00:00 00:00:00 Robert Eaton 312 marley Godoy MD: Reagan quintanilla 600 [facility] General [address], [place] [address] , Ph. [phone] 2020-01-20 2020-01-20 Outpatient Zuniga_F MMG MMG [id number] [place] 10:08:00 10:08:00 311 da Medical Group 2020-01-20 2020-01-20 Emergency ER ASHLEY [facility] [id number] [place] 02:29:00 05:03:00 BASIL -[id number] da [facility] 2020-01-18 2020-01-18 Outpatient LEIDA Shaw [facility] [id number] [place] 10:29:00 10:29:00 Umair -[id number] da [facility] 2020-01-18 2020-01-18 Umair Zuniga_F MMG [place] - 1503-202 00 [place] 00:00:00 00:00:00 Armani Eaton 309 da Pablito [facility] Medical MD: [address] [place] [address] [address], [place] [address] , Ph. 2020-01-10 2020-01-10 Outpatient Zuniga_F MMG MMG [id number] [place] 02:43:00 02:43:00 301 Medical [facility] 2020-01-07 2020-01-07 Outpatient LEIDA MITCHELL [facility] [id number] [place] 15:16:00 15:16:00 MORIAH [id number] da [facility] 2020-01-07 2020-01-07 Moriah Hernandez Zuniga_F MMG [place] - [id number] [place] 00:00:00 00:00:00 Discovery Osmel 227 da NP: [facility] Medical [facility] [address], [place] [address] , Ph. [phone] 2019-12-30 2019-12-30 Outpatient LEIDA Shaw [facility] [id number] [place] 12:39:00 12:39:00 Umair -[id number] da [facility] 2019-12-19 2019-12-19 Outpatient LEIDA JETT [facility] [id number] [place] 15:51:00 15:51:00 CONCHIS -[id number] [facility] 2019-12-18 2019-12-18 Outpatient LEIDA Shaw, [facility] [id number] [place] 14:36:00 14:36:00 Umair -[id number] [facility] 2019-12-14 2019-12-14 Outpatient Earluniga_F MMG [facility] [id number] [place] 09:05:00 09:05:00 203 [facility] 2019-12-10 2019-12-10 Emergency ER ASHLEY, [facility] [id number] [place] 05:09:00 07:57:00 BASIL -[id number] [facility] 2019-12-08 2019-12-08 Outpatient LEIDA Shaw, [facility] [id number] [place] 12:22:00 12:22:00 Umair -[id number] [facility] 2019-11-12 2019-11-12 Outpatient Lotusiga_F MMG [facility] [id number] [place] 05:37:00 05:37:00 102 [facility] 2019-10-30 2019-10-30 Outpatient LEIDA Shaw, [facility] [id number] [place] 12:23:00 12:23:00 Umair [id number] [facility] 2019-10-27 2019-10-27 Outpatient LEIDA Shaw, [facility] [id number] [place] 10:05:00 10:05:00 Umair -[id number] [facility] 2019-10-27 2019-10-27 Umair [facility] [place] - [id number] 1 [place] 00:00:00 00:00:00 Armani Motta Medical Medical MD: [address] [place] [address] [address], [place] [address] , Ph. 2019-10-14 2019-10-14 Outpatient LEIDA Shaw [facility] [id number] [place] 11:16:00 11:16:00 Umair [id number] [facility] 2019-10-05 2019-10-05 Umair [facility] [place] - [id number] 1 [place] 00:00:00 00:00:00 Armani Eaton 125 Reagan Motta Medical MD: [address] [facility] [address], [place] [address] , Ph. 2019-09-16 2019-09-16 Outpatient LEIDA Shaw, [facility] [id number] [place] 13:27:00 13:27:00 Umair [id number] [facility] 2019-09-05 2019-09-05 Outpatient LEIDA Shaw, [facility] [id number] [place] 13:52:00 13:52:00 Umair [id number] [facility] 2019-08-27 2019-08-27 Outpatient LEIDA Shaw, [facility] [id number] [place] 11:52:00 11:52:00 Umair [id number] [facility] 2019-08-13 2019-08-13 Outpatient LEIDA Shaw [facility] [id number] [place] 12:51:00 12:51:00 Umair [id number] [facility] 2019-08-10 2019-08-10 Umair [facility] [place] - [id number] 0 [place] 00:00:00 00:00:00 Armani Eaton 930 marley Shaw Medical Medical MD: [address] [address], [place] [address] , Ph. 2019-08-07 2019-08-07 Outpatient LEIDA Shaw [facility] [id number] [place] 13:26:00 13:26:00 Umair [id number] [facility] 2019-07-25 2019-07-30 Inpatient ER Pablito [facility] [id number] [place] 12:03:00 14:54:00 Umair [id number] [facility] 2019-07-15 2019-07-15 Outpatient LEIDA Shaw [facility] [id number] [place] 15:37:00 15:37:00 Umair [id number] [facility] 2019-06-16 2019-06-16 Outpatient LEIDA Shaw [facility] [id number] [place] 10:13:00 10:13:00 Umair -[id number] [facility] 2019-06-11 2019-06-11 Ion [facility] [place] - [id number] [place] 00:00:00 00:00:00 Robert Eaton 801 marley Godoy MD: Reagan Medica socorro [address] [place] [address], General [address], [place] [address] , Ph. [phone] 2019-06-09 2019-06-09 Outpatient LEIDA Shaw [facility] [id number] [place] 10:43:00 10:43:00 Umair [id number] [facility] 2019-06-09 2019-06-09 [facility] [place] - [id number] [place] 00:00:00 00:00:00 Armani Eaton 730 Reagan Motta MD: [address] [place] [address], [facility] [address], [place] [address] , Ph. 2019-05-25 2019-05-26 Outpatient ION FARIAS [facility] [id number] [place] 06:00:00 14:50:00 -[id number] [facility] 2019-05-12 2019-05-12 [facility] [place] - [id number] 0 [place] 00:00:00 00:00:00 Armani Eaton 702 Reagan Motta MD: [address] [place] [address], Family [address], [place] [address] , Ph. 2019-05-08 2019-05-08 Outpatient LEIDA Shaw [facility] [id number] [place] 09:47:00 09:47:00 Umair [id number] [facility] 2019-04-09 2019-04-09 Ion [facility] [place] - [id number] [place] 00:00:00 00:00:00 Robert Eaton 530 marley Godoy MD: [facility] [address] [place] [address] [address], [place] [address] , Ph. [phone] 2019-03-15 2019-03-17 Inpatient ER Pablito, [facility] [id number] [place] 14:51:00 15:19:00 Umair -[id number] [facility] 2019-03-09 2019-03-09 Outpatient LEIDA Shaw, [facility] [id number] [place] 07:31:00 07:31:00 Umair -[id number] [facility] 2019-03-03 2019-03-03 Outpatient LEIDA Shaw, [facility] [id number] [place] 09:28:00 09:28:00 Umair [id number] [facility] 2019-03-03 2019-03-03 Umair [facility] [place] - [id number] [place] 00:00:00 00:00:00 Armani Eaton 423 Reagan Motta Medical MD: 600 [facility] Family [address], [place] [address] , Ph. 2019-02-26 2019-02-26 Umair [facility] [place] - [id number] 0 [place] 00:00:00 00:00:00 Armani Eaton 418 Reagan Motta Medical MD: 600 [facility] Suite [address] [address] , Ph. 2019-02-13 2019-02-13 Outpatient LEIDA Shaw, [facility] [id number] [place] 12:09:00 12:09:00 Umair [id number] [facility] 2019-02-03 2019-02-03 Outpatient LEIDA Shaw, [facility] [id number] [place] 15:48:00 15:48:00 Umair [id number] [facility] 2019-02-03 2019-02-03 Umair [facility] [place] - [phone] 0 [place] 00:00:00 00:00:00 Armani Eaton 326 [facility] MD: [address] [place] [address] [address], [place] [address] , Ph. 2019-01-21 2019-01-21 Umair [facility] [place] - [id number] 0 [place] 00:00:00 00:00:00 Armani Eaton 313 [facility] MD: [address] [facility], Family [address], [place] [address] , Ph. 2019-01-15 2019-01-15 Emergency TR BLACK TAYLOR [facility] [id number] [place] 10:10:00 13:07:00 -[id number] [facility] 2019-01-13 2019-01-13 Outpatient LEIDA Shaw, [facility] [id number] [place] 12:25:00 12:25:00 Umair [id number] [facility] 2019-01-01 2019-01-01 Umair [facility] [place] - [phone] 0 [place] 00:00:00 00:00:00 Armani Eaton 221 [facility] MD: [address] [facility], Family [address], [place] [address] , Ph. 2018-12-30 2018-12-30 Outpatient LEIDA Shaw [facility] [id number] [place] 09:42:00 09:42:00 Umair -[id number] [facility] 2018-12-05 2018-12-05 Umair [facility] [place] - [id number] 0 [place] 00:00:00 00:00:00 Armani Eaton 125 [facility] MD: [address] [facility], Family [address], [place] [address] , Ph. 2018-11-17 2018-11-17 Outpatient LEIDA ROSADOLILLY TREVIÑON [facility] [id number] [place] 14:16:00 14:16:00 -[id number] [facility] 2018-09-01 2018-09-05 Inpatient ER Pablito [facility] [id number] [place] 19:02:00 17:05:00 Umair -[id number] [facility] 2018-08-01 2018-08-01 Outpatient LEIDA MILLER [facility] [id number] [place] 10:21:00 10:21:00 MERLIN -[id number] [facility] 2018-07-28 2018-07-28 Outpatient ERASMO HEDRICK [facility] [id number] [place] 09:56:00 09:56:00 -[id number] [facility] 2018-07-16 2018-07-16 Outpatient ERASMO HEDRICK [facility] [id number] [place] 13:52:00 13:52:00 -[id number] [facility] 2018-06-19 2018-06-21 Inpatient ER Shaw, [facility] [id number] [place] 23:11:00 17:05:00 Umair [id number] [facility] 2018-06-08 2018-06-10 Inpatient ER Shaw, [facility] [id number] [place] 07:01:00 15:10:00 Umair -[id number] [facility] 2018-06-03 2018-06-03 Outpatient ERASMO HEDRICK [facility] [id number] [place] 11:16:00 11:16:00 -[id number] [facility] 2018-01-27 2018-01-27 Ambulatory nullFlavo [facility] 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 4 [id number] [place] 15:45:00 15:45:00 Pre-Reg r Bella 02 [facility] 2018-01-27 2018-01-27 Ambulatory nullFlavo [facility] 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 4 [id number] [facility] 15:45:00 15:45:00 Pre-Reg r Bella 02 [facility] 2018-01-27 2018-01-27 Outpatient MHIE [facility] [id number] [place] 10:45:00 10:45:00 02 [facility] 2018-01-27 2018-01-27 Outpatient Chano [facility] [id number] 10:45:00 10:45:00 , Gelacio Roman 2018-01-20 2018-01-20 Outpatient EL MELINDA, [facility] [id number] [place] 10:58:00 10:58:00 MERLIN -[id number] [facility] 2017-10-25 2017-10-25 Emergency ER ASHLEY, [facility] [id number] [place] 05:27:00 07:30:00 BASIL -[id number] [facility] 2017-01-08 2017-01-08 Outpatient LEIDA TAN, [facility] [id number] [place] 10:16:00 10:16:00 LUIS -[id number] [facility] 2016-11-02 2016-11-02 Outpatient LEIDA TAN [facility] [id number] [place] 09:55:00 09:55:00 LUIS -[id number] [facility] 2016-08-29 2016-08-29 Outpatient LEIDA TAN [facility] [id number] [place] 10:20:00 10:20:00 LUIS -[id number] [facility] 2016-02-29 2016-03-01 Inpatient nullFlavo [facility] [id number] [place] 06:57:00 17:01:00 r Syed 11 l [facility]opedic [facility] 2016-02-29 2016-03-01 Inpatient nullFlavo [facility] [id number] [place] 06:57:00 17:01:00 r Constantia 11 l Orthopedic [facility] 2016-02-29 2016-03-01 Outpatient Fariha [facility] [id number] 01:57:00 12:01:00 Felipe Hannon 2016-02-28 2016-02-29 Emergency ER BA, TRISHA [facility] [id number] [place] 21:02:00 00:00:00 -[id number] [facility] 2016-02-20 2016-02-20 Outpatient LEIDA MCKEON, [facility] [id number] [place] 08:31:00 08:31:00 RACHEL -[id number] [facility] 2015-09-28 2015-09-28 Outpatient LEIDA MCKEON [facility] [id number] [place] 08:51:00 08:51:00 RACHEL [id number] [facility] 2015-08-23 2015-08-23 Outpatient LEIDA ELIZABETH, [facility] [id number] [place] 16:06:00 16:06:00 CORNEL -[id number] [facility] 2014-11-06 2014-11-06 Emergency ER , [facility] [id number] [place] 09:36:00 12:30:00 LAURA -[id number] [facility] 2014-10-19 2014-10-19 Outpatient LEIDA MCKEON, [facility] [id number] [place] 08:45:00 08:45:00 RACHEL -[id number] [facility] 2014-09-24 2014-09-24 Outpatient EL Shelley, [facility] [id number] [place] 07:02:00 07:02:00 Eugenio -[id number] [facility] 2014-08-24 2014-08-24 Outpatient EL Shelley, [facility] [id number] [place] 15:57:00 15:57:00 Eugenio -[id number] [facility] 2014-08-05 2014-08-05 Outpatient LEIDA TAN, [facility] [id number] [place] 20:38:00 20:38:00 LUIS -[id number] [facility] 2014-07-15 2014-07-15 Outpatient MOLINA MCKEON, [facility] [id number] [place] 08:02:00 08:02:00 RACHEL -[id number] [facility] 2014-04-07 2014-04-07 Outpatient LEIDA MCKEON, [facility] [id number] [place] 08:35:00 08:35:00 RACHEL -[id number] [facility] 2014-02-25 2014-02-25 Outpatient EL JOLEEN, [facility] [id number] [place] 10:56:00 10:56:00 MARIANGEL -[id number] [facility] 2014-02-12 2014-02-12 Outpatient EL Duran, [facility] [id number] [place] 09:36:00 09:36:00 Timi -[id number] [facility] 2014-01-05 2014-01-05 Outpatient LEIDA MCKEON, [facility] [id number] [place] 07:57:00 07:57:00 RACHEL -[id number] [facility] 2013-12-11 2013-12-11 Outpatient LEIDA Garzon, [facility] [id number] [place] 07:22:00 07:22:00 Timi -[id number] [facility] 2013-11-23 2013-11-23 Outpatient LEIDA Garzon, [facility] [id number] [place] 11:48:00 11:48:00 Timi -[id number] [facility] 2013-09-01 2013-09-01 Outpatient LEIDA MOTT, [facility] [id number] [place] 07:43:00 07:43:00 SOCORRO [id number] [facility] 2013-08-13 2013-08-13 Outpatient LEIDA MCKEON, [facility] [id number] [place] 08:28:00 08:28:00 RACHEL [id number] [facility] 2013-06-18 2013-06-18 Outpatient LEIDA MOTT, [facility] [id number] [place] 11:56:00 11:56:00 SOCORRO [id number] [facility] 2013-05-20 2013-05-20 Outpatient LEIDA MOTT, [facility] [id number] [place] 15:48:00 15:48:00 SOCORRO -[id number] [facility] 2013-03-09 2013-03-09 Outpatient LEIDA MOTT, [facility] [id number] [place] 12:07:00 12:07:00 SOCORRO -[id number] [facility] 2013-02-23 2013-02-23 Outpatient LEIDA MOTT, [facility] [id number] [place] 09:59:00 09:59:00 SOCORRO [id number] [facility] 2013-02-19 2013-02-19 Outpatient LEIDA MOTT, [facility] [id number] [place] 11:51:00 11:51:00 SOCORRO [id number] [facility] 2013-01-13 2013-01-13 Outpatient LEIDA MOTT, [facility] [id number] [place] 10:06:00 10:06:00 SOCORRO [id number] [facility] 2013-01-08 2013-01-09 Outpatient LEIDA MOTT, [facility] [id number] [place] 09:00:00 13:00:00 SOCORRO -[id number] [facility] 2012-12-17 2012-12-22 Inpatient LEIDA MONTENEGRO, [facility] [id number] [place] 12:58:00 11:05:00 ARACELI -[id number] [facility] 2012-12-02 2012-12-06 Inpatient ER PANTERA, [facility] [id number] [place] 17:45:00 11:14:00 SOCORRO -[id number] [facility] 2012-08-05 2012-08-05 Outpatient LEIDA MCKEON, [facility] [id number] [place] 08:41:00 08:41:00 RACHEL -[id number] [facility] 2012-07-17 2012-07-17 Outpatient LEIDA MCKEON, [facility] [id number] [place] 09:07:00 09:07:00 RACHEL -[id number] [facility] 2011-10-29 2011-10-29 Inpatient ER PANTERA, [facility] [id number] [place] 09:16:00 15:08:00 SOCORRO -[id number] [facility] 2010-12-20 2010-12-20 Outpatient LEIDA MOTT, [facility] [id number] [place] 09:10:00 09:10:00 SOCORRO -[id number] [facility] 2010-11-08 2010-11-08 Outpatient LEIDA MOTT, [facility] [id number] [place] 11:33:00 11:33:00 SOCORRO -[id number] [facility] 2010-10-09 2010-10-09 Emergency ER UGORJI, [facility] [id number] [place] 19:22:00 22:40:00 DOLORES -[id number] [facility] 2010-09-15 2010-09-15 Outpatient LEIDA MOTT, [facility] [id number] [place] 08:30:00 08:30:00 SOCORRO -[id number] [facility] 2010-08-31 2010-08-31 Inpatient ER AYOUBI, [facility] [id number] [place] 01:30:00 21:23:00 GABE -[id number] [facility] 2010-08-18 2010-08-18 Outpatient LEIDA MOTT, [facility] [id number] [place] 13:14:00 13:14:00 SOCORRO -[id number] [facility] 2010-08-05 2010-08-05 Emergency ER IMMARAPerry, [facility] [id number] [place] 12:41:00 15:55:00 PRESLEY -[id number] d [facility] 2010-02-01 2010-02-01 Outpatient LEIDA MCKEON, [facility] [id number] [place] 08:09:00 08:09:00 RACHEL -[id number] [facility] 2008-09-28 2008-09-28 Outpatient LEIDA VAZQUEZ, [facility] [id number] [place] 16:02:00 16:02:00 NIKHIL -[id number] [facility] 2008-07-06 2008-07-06 Outpatient LEIDA VAZQUEZ, [facility] [id number] [place] 06:37:00 06:37:00 NIKHIL -[id number] [facility] 2008-04-26 2008-04-26 Outpatient LEIDA VAZQUEZ, [facility] [id number] [place] 08:50:00 08:50:00 NIKHIL -[id number] [facility] 2007-06-09 2007-06-09 Outpatient MOLINA MCKEON, [facility] [id number] [place] 09:37:00 09:37:00 RACHEL -[id number] [facility] 2007-05-09 2007-05-09 Emergency ER DELANO, [facility] [id number] [place] 17:14:00 22:55:00 MARGRET -[id number] [facility] 2007-02-10 2007-02-10 Outpatient NII BROWN [facility] [id number] [place] 14:41:00 14:41:00 -[id number] [facility] 2006-12-23 2006-12-23 Outpatient LEIDA VAZQUEZ, [facility] [id number] [place] 09:42:00 09:42:00 NIKHIL -[id number] [facility] 2006-05-12 2006-05-15 Inpatient ER PANTERA, [facility] [id number] [place] 10:49:00 09:38:00 SOCORRO -[id number] [facility] 2005-12-13 2005-12-13 Outpatient LEIDA MCKEON, [facility] [id number] [place] 08:03:00 08:03:00 RACHEL -[id number] [facility] 2005-09-19 2005-09-19 Outpatient LEIDA MCKEON, [facility] [id number] [place] 07:45:00 07:45:00 RACHEL -[id number] [facility] 2005-09-04 2005-09-04 Outpatient MOLINA MCKEON, [facility] [id number] [place] 07:51:00 07:51:00 RACHEL -[id number] [facility] 2005-08-23 2005-08-23 Outpatient LEIDA MCKEON, [facility] [id number] [place] 08:34:00 08:34:00 RACHEL -[id number] [facility] 2005-05-04 2005-05-04 Outpatient MOLINA MCKEON, [facility] [id number] [place] 08:14:00 08:14:00 RACHEL -[id number] [facility] 2005-04-23 2005-04-25 Inpatient LEIDA MOTT, [facility] [id number] [place] 11:36:00 18:45:00 SOCORRO -[id number] [facility] 2005-04-16 2005-04-16 Outpatient LEIDA MCKEON, [facility] [id number] [place] 09:44:00 09:44:00 RACHEL -[id number] [facility] 2004-08-15 2004-08-15 Outpatient LEIDA VAZQUEZ [facility] [id number] [place] 08:25:00 08:25:00 NIKHIL -[id number] [facility] 2004-02-04 2004-02-07 Inpatient ALKA VAZQUEZ, [facility] [id number] [place] 16:10:00 16:00:00 NIKHIL [id number] [facility] 2003-11-17 2003-11-17 Outpatient LEIDA MENDES, [facility] [id number] [place] 09:56:00 09:56:00 ASHTYN [id number] [facility] 2001-08-15 2001-08-15 Outpatient LEIDA VAZQUEZ [facility] [id number] [place] 06:13:00 06:13:00 NIKHIL -[id number] [facility] 2001-07-06 2001-07-09 Inpatient UR PANTERA [facility] [id number] [place] 10:06:00 10:30:00 SOCORRO [id number] [facility] 2000-04-05 2000-04-08 Inpatient ER PANTERA [facility] [id number] [place] 21:37:00 08:53:00 SOCORRO [id number] [facility] Results Test Description Test Time Test Comments Results Result Comments Source HEMATOLOGY 2022-10-28 13:08:00 Test Item Value Reference Range Interpretation Comme nts WBC (test code = WBC) 7.4 3.7-10.4 [facility]59[facility]65 13:08:00 Test Item Value Reference Range Interpretation Comments RBC (test code = RBC) 2.64 4.20-5.40 [facility]hzwtjuSVTPJGPSBI9031-23-81 13:08:00 Test Item Value Reference Range Interpretation Comments Hgb (test code = Hgb) 8.5 12.0-16.0 [facility]OdognxgQPBXIFCIHM1959-57-72 13:08:00 Test Item Value Reference Range Interpretation Comments Hct (test code = Hct) 25.9 36.0-48.0 [facility]EowjwfnSXADHCONAO1120-87-94 13:08:00 Test Item Value Reference Range Interpretation Comments MCV (test code = MCV) 98.2 80.0-98.0 [facility]AnavtqcEYXCYMEGEM4786-09-76 13:08:00 Test Item Value Reference Range Interpretation Comments MCH (test code = MCH) 32.3 pg 27.0-31.0 [facility] CenterTcogdloUYKTUXMGBA9437-61-61 13:08:00 Test Item Value Reference Range Interpretation Comments MCHC (test code = MCHC) 32.9 32.0-36.0 [facility] CenterKdcsyriKJHWOUWIHN1010-38-40 13:08:00 Test Item Value Reference Range Interpretation Comments RDW (test code = RDW) 18.5 11.5-14.5 [facility] CenterCgguxyyDMKHEUHAMW5142-51-18 13:08:00 Test Item Value Reference Range Interpretation Comments Platelet (test code = Platelet) 218 133-450 [facility] CenterJcibdluKYFGPXHEGO6281-84-62 13:08:00 Test Item Value Reference Range Interpretation Comments MPV (test code = MPV) 7.0 7.4-10.4 [place]362-12-18 13:08:00 Test Item Value Reference Range Interpretation Comments WBC (test code = WBC) 7.4 3.7-10.4 [place]362-12-18 13:08:00 Test Item Value Reference Range Interpretation Comments RBC (test code = RBC) 2.64 4.20-5.40 [place]362-12-18 13:08:00 Test Item Value Reference Range Interpretation Comments WBC (test code = WBC) 7.4 3.7-10.4 [place]362-12-18 13:08:00 Test Item Value Reference Range Interpretation Comments Hgb (test code = Hgb) 8.5 12.0-16.0 [place] [address]-12-18 13:08:00 Test Item Value Reference Range Interpretation Comments Hct (test code = Hct) 25.9 36.0-48.0 [place]362-12-18 13:08:00 Test Item Value Reference Range Interpretation Comments MCV (test code = MCV) 98.2 80.0-98.0 [place]362-12-18 13:08:00 Test Item Value Reference Range Interpretation Comments MCH (test code = MCH) 32.3 pg 27.0-31.0 [place] 519362-12-18 13:08:00 Test Item Value Reference Range Interpretation Comments MCHC (test code = MCHC) 32.9 32.0-36.0 [place] [address]-12-18 13:08:00 Test Item Value Reference Range Interpretation Comments RDW (test code = RDW) 18.5 11.5-14.5 [place] [address]-12-18 13:08:00 Test Item Value Reference Range Interpretation Comments Platelet (test code = Platelet) 218 133-450 [facility] CenterFklwvraOUXMMZGFNX3235-18-83 13:08:00 Test Item Value Reference Range Interpretation Comments MPV (test code = MPV) 7.0 7.4-10.4 [place] [address]-12-18 13:08:00 Test Item Value Reference Range Interpretation Comments RBC (test code = RBC) 2.64 4.20-5.40 [place] [address]-12-18 13:08:00 Test Item Value Reference Range Interpretation Comments Hgb (test code = Hgb) 8.5 12.0-16.0 [place] [address]-12-18 13:08:00 Test Item Value Reference Range Interpretation Comments Hct (test code = Hct) 25.9 36.0-48.0 [place] [address]-12-18 13:08:00 Test Item Value Reference Range Interpretation Comments MCV (test code = MCV) 98.2 80.0-98.0 [place] [address]-12-18 13:08:00 Test Item Value Reference Range Interpretation Comments MCH (test code = MCH) 32.3 pg 27.0-31.0 [place] [address]-12-18 13:08:00 Test Item Value Reference Range Interpretation Comments MCHC (test code = MCHC) 32.9 32.0-36.0 [place] [address]-12-18 13:08:00 Test Item Value Reference Range Interpretation Comments RDW (test code = RDW) 18.5 11.5-14.5 [place] [address]-12-18 13:08:00 Test Item Value Reference Range Interpretation Comments Platelet (test code = Platelet) 218 133-450 [place] 519362-12-18 13:08:00 Test Item Value Reference Range Interpretation Comments MPV (test code = MPV) 7.0 7.4-10.4 [place] [address]-12-18 13:08:00 Test Item Value Reference Range Interpretation Comments WBC (test code = WBC) 7.4 3.7-10.4 [place] [address]-12-18 13:08:00 Test Item Value Reference Range Interpretation Comments RBC (test code = RBC) 2.64 4.20-5.40 [place] [address]-12-18 13:08:00 Test Item Value Reference Range Interpretation Comments Hgb (test code = Hgb) 8.5 12.0-16.0 [place] [address]-12-18 13:08:00 Test Item Value Reference Range Interpretation Comments Hct (test code = Hct) 25.9 36.0-48.0 [place] [address]-12-18 13:08:00 Test Item Value Reference Range Interpretation Comments MCV (test code = MCV) 98.2 80.0-98.0 [place] [address]-12-18 13:08:00 Test Item Value Reference Range Interpretation Comments MCH (test code = MCH) 32.3 pg 27.0-31.0 [place] [address]-12-18 13:08:00 Test Item Value Reference Range Interpretation Comments MCHC (test code = MCHC) 32.9 32.0-36.0 [place] 519362-12-18 13:08:00 Test Item Value Reference Range Interpretation Comments RDW (test code = RDW) 18.5 11.5-14.5 [place] [address]-12-18 13:08:00 Test Item Value Reference Range Interpretation Comments Platelet (test code = Platelet) 218 133-450 [facility]ArxoanjCOPGAJVMCM3400-29-72 13:08:00 Test Item Value Reference Range Interpretation Comments MPV (test code = MPV) 7.0 7.4-10.4 [place] [address]-12-18 13:08:00 Test Item Value Reference Range Interpretation Comments WBC (test code = WBC) 7.4 3.7-10.4 [place] 519362-12-18 13:08:00 Test Item Value Reference Range Interpretation Comments RBC (test code = RBC) 2.64 4.20-5.40 [place] [address]-12-18 13:08:00 Test Item Value Reference Range Interpretation Comments Hgb (test code = Hgb) 8.5 12.0-16.0 [place] [address]-12-18 13:08:00 Test Item Value Reference Range Interpretation Comments Hct (test code = Hct) 25.9 36.0-48.0 [place] 519362-12-18 13:08:00 Test Item Value Reference Range Interpretation Comments MCV (test code = MCV) 98.2 80.0-98.0 [place] [address]-12-18 13:08:00 Test Item Value Reference Range Interpretation Comments MCH (test code = MCH) 32.3 pg 27.0-31.0 [place] 519362-12-18 13:08:00 Test Item Value Reference Range Interpretation Comments MCHC (test code = MCHC) 32.9 32.0-36.0 [place] 519362-12-18 13:08:00 Test Item Value Reference Range Interpretation Comments RDW (test code = RDW) 18.5 11.5-14.5 [place] 519362-12-18 13:08:00 Test Item Value Reference Range Interpretation Comments Platelet (test code = Platelet) 218 133-450 [facility] CenterSlyzfgwTMOHJZYCVN8459-73-91 13:08:00 Test Item Value Reference Range Interpretation Comments MPV (test code = MPV) 7.0 7.4-10.4 [place] 519362-12-18 13:08:00 Test Item Value Reference Range Interpretation Comments WBC (test code = WBC) 7.4 3.7-10.4 [place] 519362-12-18 13:08:00 Test Item Value Reference Range Interpretation Comments RBC (test code = RBC) 2.64 4.20-5.40 [facility] CenterPxuoeshKZKGMXUMLB4184-60-87 13:08:00 Test Item Value Reference Range Interpretation Comments Hgb (test code = Hgb) 8.5 12.0-16.0 [place] 519362-12-18 13:08:00 Test Item Value Reference Range Interpretation Comments Hct (test code = Hct) 25.9 36.0-48.0 [place] 519362-12-18 13:08:00 Test Item Value Reference Range Interpretation Comments MCV (test code = MCV) 98.2 80.0-98.0 [place] [address]-12-18 13:08:00 Test Item Value Reference Range Interpretation Comments MCH (test code = MCH) 32.3 pg 27.0-31.0 [place] 519362-12-18 13:08:00 Test Item Value Reference Range Interpretation Comments MCHC (test code = MCHC) 32.9 32.0-36.0 [facility] CenterEvqytsmJZTMDMKFYD5003-22-69 13:08:00 Test Item Value Reference Range Interpretation Comments RDW (test code = RDW) 18.5 11.5-14.5 [place] [address]-12-18 13:08:00 Test Item Value Reference Range Interpretation Comments Platelet (test code = Platelet) 218 133-450 [place] 519362-12-18 13:08:00 Test Item Value Reference Range Interpretation Comments MPV (test code = MPV) 7.0 7.4-10.4 [place] [address]-12-18 13:08:00 Test Item Value Reference Range Interpretation Comments WBC (test code = WBC) 7.4 3.7-10.4 [place] 519362-12-18 13:08:00 Test Item Value Reference Range Interpretation Comments RBC (test code = RBC) 2.64 4.20-5.40 [place] [address]-12-18 13:08:00 Test Item Value Reference Range Interpretation Comments Hgb (test code = Hgb) 8.5 12.0-16.0 [place] [address]-12-18 13:08:00 Test Item Value Reference Range Interpretation Comments Hct (test code = Hct) 25.9 36.0-48.0 [facility] CenterWpaeewnDPGHBNUNYN3429-72-97 13:08:00 Test Item Value Reference Range Interpretation Comments MCV (test code = MCV) 98.2 80.0-98.0 [place] [address]-12-18 13:08:00 Test Item Value Reference Range Interpretation Comments MCH (test code = MCH) 32.3 pg 27.0-31.0 [place] 519362-12-18 13:08:00 Test Item Value Reference Range Interpretation Comments MCHC (test code = MCHC) 32.9 32.0-36.0 [place] 519362-12-18 13:08:00 Test Item Value Reference Range Interpretation Comments RDW (test code = RDW) 18.5 11.5-14.5 [place] [address]-12-18 13:08:00 Test Item Value Reference Range Interpretation Comments Platelet (test code = Platelet) 218 133-450 [place] 519362-12-18 13:08:00 Test Item Value Reference Range Interpretation Comments MPV (test code = MPV) 7.0 7.4-10.4 [place] 519362-12-18 13:08:00 Test Item Value Reference Range Interpretation Comments WBC (test code = WBC) 7.4 3.7-10.4 [place] 519362-12-18 13:08:00 Test Item Value Reference Range Interpretation Comments RBC (test code = RBC) 2.64 4.20-5.40 [place] 519362-12-18 13:08:00 Test Item Value Reference Range Interpretation Comments Hgb (test code = Hgb) 8.5 12.0-16.0 [place] [address]-12-18 13:08:00 Test Item Value Reference Range Interpretation Comments Hct (test code = Hct) 25.9 36.0-48.0 [place] 519362-12-18 13:08:00 Test Item Value Reference Range Interpretation Comments MCV (test code = MCV) 98.2 80.0-98.0 [place] [address]-12-18 13:08:00 Test Item Value Reference Range Interpretation Comments MCH (test code = MCH) 32.3 pg 27.0-31.0 [place] [address]-12-18 13:08:00 Test Item Value Reference Range Interpretation Comments MCHC (test code = MCHC) 32.9 32.0-36.0 [facility]MqhrlzkTQLYEUUTBW0958-88-89 13:08:00 Test Item Value Reference Range Interpretation Comments RDW (test code = RDW) 18.5 11.5-14.5 [place] [address]-12-18 13:08:00 Test Item Value Reference Range Interpretation Comments Platelet (test code = Platelet) 218 133-450 [id number] 13:08:00 Test Item Value Reference Range Interpretation Comments MPV (test code = MPV) 7.0 7.4-10.4 [place] [address]-12-18 13:08:00 Test Item Value Reference Range Interpretation Comments WBC (test code = WBC) 7.4 3.7-10.4 [place] [address]-12-18 13:08:00 Test Item Value Reference Range Interpretation Comments RBC (test code = RBC) 2.64 4.20-5.40 [place] [id number] 13:08:00 Test Item Value Reference Range Interpretation Comments Hgb (test code = Hgb) 8.5 12.0-16.0 [place] [address]-12-18 13:08:00 Test Item Value Reference Range Interpretation Comments Hct (test code = Hct) 25.9 36.0-48.0 [place] [address]-12-18 13:08:00 Test Item Value Reference Range Interpretation Comments MCV (test code = MCV) 98.2 80.0-98.0 [place] [address]-12-18 13:08:00 Test Item Value Reference Range Interpretation Comments MCH (test code = MCH) 32.3 pg 27.0-31.0 [place] [address]-12-18 13:08:00 Test Item Value Reference Range Interpretation Comments MCHC (test code = MCHC) 32.9 32.0-36.0 [place] 519362-12-18 13:08:00 Test Item Value Reference Range Interpretation Comments RDW (test code = RDW) 18.5 11.5-14.5 [place] [address]-12-18 13:08:00 Test Item Value Reference Range Interpretation Comments Platelet (test code = Platelet) 218 133-450 [place] 519362-12-18 13:08:00 Test Item Value Reference Range Interpretation Comments MPV (test code = MPV) 7.0 7.4-10.4 [place] [address]-12-18 13:08:00 Test Item Value Reference Range Interpretation Comments WBC (test code = WBC) 7.4 3.7-10.4 [place] [address]-12-18 13:08:00 Test Item Value Reference Range Interpretation Comments RBC (test code = RBC) 2.64 4.20-5.40 [place] [address]-12-18 13:08:00 Test Item Value Reference Range Interpretation Comments Hgb (test code = Hgb) 8.5 12.0-16.0 [place] [address]-12-18 13:08:00 Test Item Value Reference Range Interpretation Comments Hct (test code = Hct) 25.9 36.0-48.0 [place] [address]-12-18 13:08:00 Test Item Value Reference Range Interpretation Comments MCV (test code = MCV) 98.2 80.0-98.0 [place] [address]-12-18 13:08:00 Test Item Value Reference Range Interpretation Comments MCH (test code = MCH) 32.3 pg 27.0-31.0 [place] 519362-12-18 13:08:00 Test Item Value Reference Range Interpretation Comments MCHC (test code = MCHC) 32.9 32.0-36.0 [place] 519362-12-18 13:08:00 Test Item Value Reference Range Interpretation Comments RDW (test code = RDW) 18.5 11.5-14.5 [place] 519362-12-18 13:08:00 Test Item Value Reference Range Interpretation Comments Platelet (test code = Platelet) 218 133-450 [facility]WnonaiuIZVBCJGACZ1934-92-63 13:08:00 Test Item Value Reference Range Interpretation Comments MPV (test code = MPV) 7.0 7.4-10.4 [place] 519362-12-18 13:08:00 Test Item Value Reference Range Interpretation Comments WBC (test code = WBC) 7.4 3.7-10.4 [place] 519362-12-18 13:08:00 Test Item Value Reference Range Interpretation Comments RBC (test code = RBC) 2.64 4.20-5.40 [place] 519362-12-18 13:08:00 Test Item Value Reference Range Interpretation Comments Hgb (test code = Hgb) 8.5 12.0-16.0 [place] 519362-12-18 13:08:00 Test Item Value Reference Range Interpretation Comments Hct (test code = Hct) 25.9 36.0-48.0 [place] 519362-12-18 13:08:00 Test Item Value Reference Range Interpretation Comments MCV (test code = MCV) 98.2 80.0-98.0 [place] [address]-12-18 13:08:00 Test Item Value Reference Range Interpretation Comments MCH (test code = MCH) 32.3 pg 27.0-31.0 [place] 519362-12-18 13:08:00 Test Item Value Reference Range Interpretation Comments MCHC (test code = MCHC) 32.9 32.0-36.0 [place] 519362-12-18 13:08:00 Test Item Value Reference Range Interpretation Comments RDW (test code = RDW) 18.5 11.5-14.5 [facility] CenterNjbtqejPOJXBTYOFK9126-68-93 13:08:00 Test Item Value Reference Range Interpretation Comments Platelet (test code = Platelet) 218 133-450 [facility] CenterIueubiqFRKNGPBWYV4630-87-00 13:08:00 Test Item Value Reference Range Interpretation Comments MPV (test code = MPV) 7.0 7.4-10.4 [place] 519362-12-18 13:08:00 Test Item Value Reference Range Interpretation Comments WBC (test code = WBC) 7.4 3.7-10.4 [facility] CenterKstxqpxYELEJWRXHQ2650-14-55 13:08:00 Test Item Value Reference Range Interpretation Comments RBC (test code = RBC) 2.64 4.20-5.40 [place] 519362-12-18 13:08:00 Test Item Value Reference Range Interpretation Comments Hgb (test code = Hgb) 8.5 12.0-16.0 [place] 519362-12-18 13:08:00 Test Item Value Reference Range Interpretation Comments Hct (test code = Hct) 25.9 36.0-48.0 [facility] CenterHncomziPQTTCEPXFY0581-85-21 13:08:00 Test Item Value Reference Range Interpretation Comments MCV (test code = MCV) 98.2 80.0-98.0 [place] 519362-12-18 13:08:00 Test Item Value Reference Range Interpretation Comments MCH (test code = MCH) 32.3 pg 27.0-31.0 [place] 519362-12-18 13:08:00 Test Item Value Reference Range Interpretation Comments MCHC (test code = MCHC) 32.9 32.0-36.0 [place] [address]-12-18 13:08:00 Test Item Value Reference Range Interpretation Comments RDW (test code = RDW) 18.5 11.5-14.5 [place] [address]-12-18 13:08:00 Test Item Value Reference Range Interpretation Comments Platelet (test code = Platelet) 218 133-450 [facility] CenterLesxwlbKJOEMCLSUE3686-99-44 13:08:00 Test Item Value Reference Range Interpretation Comments MPV (test code = MPV) 7.0 7.4-10.4 [place] 519362-12-18 13:08:00 Test Item Value Reference Range Interpretation Comments WBC (test code = WBC) 7.4 3.7-10.4 [facility] CenterMlkzrpjLWQPOTSRAN0066-80-72 13:08:00 Test Item Value Reference Range Interpretation Comments RBC (test code = RBC) 2.64 4.20-5.40 [facility] CenterFxolxmuEEYYEUWPQF5574-48-79 13:08:00 Test Item Value Reference Range Interpretation Comments Hgb (test code = Hgb) 8.5 12.0-16.0 [place] [address]-12-18 13:08:00 Test Item Value Reference Range Interpretation Comments Hct (test code = Hct) 25.9 36.0-48.0 [place] 519362-12-18 13:08:00 Test Item Value Reference Range Interpretation Comments MCV (test code = MCV) 98.2 80.0-98.0 [place] [address]-12-18 13:08:00 Test Item Value Reference Range Interpretation Comments MCH (test code = MCH) 32.3 pg 27.0-31.0 [place] 519362-12-18 13:08:00 Test Item Value Reference Range Interpretation Comments MCHC (test code = MCHC) 32.9 32.0-36.0 [facility] CenterKghlxcwMRCAAAWLVS2389-34-75 13:08:00 Test Item Value Reference Range Interpretation Comments RDW (test code = RDW) 18.5 11.5-14.5 [facility] CenterCzbxrvaSGYJAIXDEI1947-98-60 13:08:00 Test Item Value Reference Range Interpretation Comments Platelet (test code = Platelet) 218 133-450 [facility] CenterVrbxzzhACWXNRYDRS9056-83-94 13:08:00 Test Item Value Reference Range Interpretation Comments MPV (test code = MPV) 7.0 7.4-10.4 [place] [address]-12-18 13:08:00 Test Item Value Reference Range Interpretation Comments WBC (test code = WBC) 7.4 3.7-10.4 [place] 519362-12-18 13:08:00 Test Item Value Reference Range Interpretation Comments RBC (test code = RBC) 2.64 4.20-5.40 [place] 519362-12-18 13:08:00 Test Item Value Reference Range Interpretation Comments Hgb (test code = Hgb) 8.5 12.0-16.0 [facility] CenterLerngliFMWZKYLSJE5215-60-99 13:08:00 Test Item Value Reference Range Interpretation Comments Hct (test code = Hct) 25.9 36.0-48.0 [facility] CenterRmwcszzLAAXGQAEFE6635-61-76 13:08:00 Test Item Value Reference Range Interpretation Comments MCV (test code = MCV) 98.2 80.0-98.0 [place] 519362-12-18 13:08:00 Test Item Value Reference Range Interpretation Comments MCH (test code = MCH) 32.3 pg 27.0-31.0 [facility] CenterGqswruoDIJWSYSSPG4076-27-15 13:08:00 Test Item Value Reference Range Interpretation Comments MCHC (test code = MCHC) 32.9 32.0-36.0 [facility] CenterGdbmpthIHBUBAVURF5185-62-66 13:08:00 Test Item Value Reference Range Interpretation Comments RDW (test code = RDW) 18.5 11.5-14.5 [place] 519362-12-18 13:08:00 Test Item Value Reference Range Interpretation Comments Platelet (test code = Platelet) 218 133-450 [facility] CenterHgfyrosAENBDGWSCZ4156-59-19 13:08:00 Test Item Value Reference Range Interpretation Comments MPV (test code = MPV) 7.0 7.4-10.4 [place] 519362-12-18 13:08:00 Test Item Value Reference Range Interpretation Comments WBC (test code = WBC) 7.4 3.7-10.4 [place] 519362-12-18 13:08:00 Test Item Value Reference Range Interpretation Comments RBC (test code = RBC) 2.64 4.20-5.40 [place] [address]-12-18 13:08:00 Test Item Value Reference Range Interpretation Comments Hgb (test code = Hgb) 8.5 12.0-16.0 [place] [address]-12-18 13:08:00 Test Item Value Reference Range Interpretation Comments Hct (test code = Hct) 25.9 36.0-48.0 [place] 519362-12-18 13:08:00 Test Item Value Reference Range Interpretation Comments MCV (test code = MCV) 98.2 80.0-98.0 [place] [address]-12-18 13:08:00 Test Item Value Reference Range Interpretation Comments MCH (test code = MCH) 32.3 pg 27.0-31.0 [place] [address]-12-18 13:08:00 Test Item Value Reference Range Interpretation Comments MCHC (test code = MCHC) 32.9 32.0-36.0 [place] 519362-12-18 13:08:00 Test Item Value Reference Range Interpretation Comments RDW (test code = RDW) 18.5 11.5-14.5 [place]362-12-18 13:08:00 Test Item Value Reference Range Interpretation Comments Platelet (test code = Platelet) 218 133-450 [place] 519362-12-18 13:08:00 Test Item Value Reference Range Interpretation Comments MPV (test code = MPV) 7.0 7.4-10.4 [place] 519362-12-18 13:08:00 Test Item Value Reference Range Interpretation Comments WBC (test code = WBC) 7.4 3.7-10.4 [place] 519362-12-18 13:08:00 Test Item Value Reference Range Interpretation Comments RBC (test code = RBC) 2.64 4.20-5.40 [place] 519362-12-18 13:08:00 Test Item Value Reference Range Interpretation Comments Hgb (test code = Hgb) 8.5 12.0-16.0 [place] [address]-12-18 13:08:00 Test Item Value Reference Range Interpretation Comments Hct (test code = Hct) 25.9 36.0-48.0 [place] [address]-12-18 13:08:00 Test Item Value Reference Range Interpretation Comments MCV (test code = MCV) 98.2 80.0-98.0 [place] [address]-12-18 13:08:00 Test Item Value Reference Range Interpretation Comments MCH (test code = MCH) 32.3 pg 27.0-31.0 [place] [address]-12-18 13:08:00 Test Item Value Reference Range Interpretation Comments MCHC (test code = MCHC) 32.9 32.0-36.0 [place] 519362-12-18 13:08:00 Test Item Value Reference Range Interpretation Comments RDW (test code = RDW) 18.5 11.5-14.5 [place] [address]-12-18 13:08:00 Test Item Value Reference Range Interpretation Comments Platelet (test code = Platelet) 218 133-450 [place] 519362-12-18 13:08:00 Test Item Value Reference Range Interpretation Comments MPV (test code = MPV) 7.0 7.4-10.4 [place] 519362-12-18 13:08:00 Test Item Value Reference Range Interpretation Comments WBC (test code = WBC) 7.4 3.7-10.4 [place] 519362-12-18 13:08:00 Test Item Value Reference Range Interpretation Comments RBC (test code = RBC) 2.64 4.20-5.40 [place] [address]-12-18 13:08:00 Test Item Value Reference Range Interpretation Comments Hgb (test code = Hgb) 8.5 12.0-16.0 [place] [address]-12-18 13:08:00 Test Item Value Reference Range Interpretation Comments Hct (test code = Hct) 25.9 36.0-48.0 [place] [address]-12-18 13:08:00 Test Item Value Reference Range Interpretation Comments MCV (test code = MCV) 98.2 80.0-98.0 [place] [address]-12-18 13:08:00 Test Item Value Reference Range Interpretation Comments MCH (test code = MCH) 32.3 pg 27.0-31.0 [place] [address]-12-18 13:08:00 Test Item Value Reference Range Interpretation Comments MCHC (test code = MCHC) 32.9 32.0-36.0 [place] [address]-12-18 13:08:00 Test Item Value Reference Range Interpretation Comments RDW (test code = RDW) 18.5 11.5-14.5 [place] 519362-12-18 13:08:00 Test Item Value Reference Range Interpretation Comments Platelet (test code = Platelet) 218 133-450 [place] 519362-12-18 13:08:00 Test Item Value Reference Range Interpretation Comments MPV (test code = MPV) 7.0 7.4-10.4 [facility] CenterGfuhwfuXXVFPLHSRF5525-79-57 13:08:00 Test Item Value Reference Range Interpretation Comments WBC (test code = WBC) 7.4 3.7-10.4 [facility] CenterSgabjizQJJDDPEOGQ1003-93-56 13:08:00 Test Item Value Reference Range Interpretation Comments RBC (test code = RBC) 2.64 4.20-5.40 [facility] CenterVuekpakTQITVTGIER0612-14-57 13:08:00 Test Item Value Reference Range Interpretation Comments Hgb (test code = Hgb) 8.5 12.0-16.0 [place] [address]-12-18 13:08:00 Test Item Value Reference Range Interpretation Comments Hct (test code = Hct) 25.9 36.0-48.0 [place] 519362-12-18 13:08:00 Test Item Value Reference Range Interpretation Comments MCV (test code = MCV) 98.2 80.0-98.0 [place] 519362-12-18 13:08:00 Test Item Value Reference Range Interpretation Comments MCH (test code = MCH) 32.3 pg 27.0-31.0 [facility] CenterQrxatmsMBCDHTAMNN4290-21-00 13:08:00 Test Item Value Reference Range Interpretation Comments MCHC (test code = MCHC) 32.9 32.0-36.0 [facility] CenterDeesyskPLKMZSESIL6582-87-45 13:08:00 Test Item Value Reference Range Interpretation Comments RDW (test code = RDW) 18.5 11.5-14.5 [facility] CenterTjmtaxaBKKSODQFUK7393-61-26 13:08:00 Test Item Value Reference Range Interpretation Comments Platelet (test code = Platelet) 218 133-450 [facility] CenterKwtgbipNQXRCQTQIY6597-35-77 13:08:00 Test Item Value Reference Range Interpretation Comments MPV (test code = MPV) 7.0 7.4-10.4 [place] 519362-12-18 13:08:00 Test Item Value Reference Range Interpretation Comments WBC (test code = WBC) 7.4 3.7-10.4 [facility] CenterPbkzvedPIDFZBDGEF9342-85-16 13:08:00 Test Item Value Reference Range Interpretation Comments RBC (test code = RBC) 2.64 4.20-5.40 [place] 519362-12-18 13:08:00 Test Item Value Reference Range Interpretation Comments Hgb (test code = Hgb) 8.5 12.0-16.0 [facility] CenterObkwovaPRUFHEILLI3980-32-83 13:08:00 Test Item Value Reference Range Interpretation Comments Hct (test code = Hct) 25.9 36.0-48.0 [facility] CenterTzznwktCIGXUNACEK3309-77-11 13:08:00 Test Item Value Reference Range Interpretation Comments MCV (test code = MCV) 98.2 80.0-98.0 [facility] CenterJzjrwrgABSROIEIYU2611-20-26 13:08:00 Test Item Value Reference Range Interpretation Comments MCH (test code = MCH) 32.3 pg 27.0-31.0 [facility] CenterMbdvonkLWWMSCONPC0132-59-41 13:08:00 Test Item Value Reference Range Interpretation Comments MCHC (test code = MCHC) 32.9 32.0-36.0 [facility] CenterXwmmakuTHRXEMWKVX4045-93-36 13:08:00 Test Item Value Reference Range Interpretation Comments RDW (test code = RDW) 18.5 11.5-14.5 [facility] CenterQesidsoCXRBDLLKRR1582-69-19 13:08:00 Test Item Value Reference Range Interpretation Comments Platelet (test code = Platelet) 218 133-450 [facility] CenterCbjgxzfVMUZNQXKVG1610-32-53 13:08:00 Test Item Value Reference Range Interpretation Comments MPV (test code = MPV) 7.0 7.4-10.4 [facility] CenterFrnmuibTZRVMNZABB9569-40-21 13:08:00 Test Item Value Reference Range Interpretation Comments WBC (test code = WBC) 7.4 3.7-10.4 [facility] CenterXgevrbuCUZNGBQABA8792-75-86 13:08:00 Test Item Value Reference Range Interpretation Comments RBC (test code = RBC) 2.64 4.20-5.40 [place] [address]-12-18 13:08:00 Test Item Value Reference Range Interpretation Comments Hgb (test code = Hgb) 8.5 12.0-16.0 [place] 519362-12-18 13:08:00 Test Item Value Reference Range Interpretation Comments Hct (test code = Hct) 25.9 36.0-48.0 [place] 519362-12-18 13:08:00 Test Item Value Reference Range Interpretation Comments MCV (test code = MCV) 98.2 80.0-98.0 [place] 519362-12-18 13:08:00 Test Item Value Reference Range Interpretation Comments MCH (test code = MCH) 32.3 pg 27.0-31.0 [place] 519362-12-18 13:08:00 Test Item Value Reference Range Interpretation Comments MCHC (test code = MCHC) 32.9 32.0-36.0 [place] 519362-12-18 13:08:00 Test Item Value Reference Range Interpretation Comments RDW (test code = RDW) 18.5 11.5-14.5 [place] 519362-12-18 13:08:00 Test Item Value Reference Range Interpretation Comments Platelet (test code = Platelet) 218 133-450 [facility] CenterUibrvptBGOUOUNOLV6963-47-01 13:08:00 Test Item Value Reference Range Interpretation Comments MPV (test code = MPV) 7.0 7.4-10.4 [place] 519362-12-18 13:08:00 Test Item Value Reference Range Interpretation Comments WBC (test code = WBC) 7.4 3.7-10.4 [place] 519362-12-18 13:08:00 Test Item Value Reference Range Interpretation Comments RBC (test code = RBC) 2.64 4.20-5.40 [place] 519362-12-18 13:08:00 Test Item Value Reference Range Interpretation Comments Hgb (test code = Hgb) 8.5 12.0-16.0 [place] [address]-12-18 13:08:00 Test Item Value Reference Range Interpretation Comments Hct (test code = Hct) 25.9 36.0-48.0 [place] [address]-12-18 13:08:00 Test Item Value Reference Range Interpretation Comments MCV (test code = MCV) 98.2 80.0-98.0 [place] [address]-12-18 13:08:00 Test Item Value Reference Range Interpretation Comments MCH (test code = MCH) 32.3 pg 27.0-31.0 [place] 519362-12-18 13:08:00 Test Item Value Reference Range Interpretation Comments MCHC (test code = MCHC) 32.9 32.0-36.0 [place] [address]-12-18 13:08:00 Test Item Value Reference Range Interpretation Comments RDW (test code = RDW) 18.5 11.5-14.5 [place] [address]-12-18 13:08:00 Test Item Value Reference Range Interpretation Comments Platelet (test code = Platelet) 218 133-450 [place] 519362-12-18 13:08:00 Test Item Value Reference Range Interpretation Comments MPV (test code = MPV) 7.0 7.4-10.4 [place] [address]-12-18 13:08:00 Test Item Value Reference Range Interpretation Comments WBC (test code = WBC) 7.4 3.7-10.4 [place] 519362-12-18 13:08:00 Test Item Value Reference Range Interpretation Comments RBC (test code = RBC) 2.64 4.20-5.40 [place] [address]-12-18 13:08:00 Test Item Value Reference Range Interpretation Comments Hgb (test code = Hgb) 8.5 12.0-16.0 [place] [address]-12-18 13:08:00 Test Item Value Reference Range Interpretation Comments Hct (test code = Hct) 25.9 36.0-48.0 [place] [address]-12-18 13:08:00 Test Item Value Reference Range Interpretation Comments MCV (test code = MCV) 98.2 80.0-98.0 [place] [address]-12-18 13:08:00 Test Item Value Reference Range Interpretation Comments MCH (test code = MCH) 32.3 pg 27.0-31.0 [place] [address]-12-18 13:08:00 Test Item Value Reference Range Interpretation Comments MCHC (test code = MCHC) 32.9 32.0-36.0 [place] [address]-12-18 13:08:00 Test Item Value Reference Range Interpretation Comments RDW (test code = RDW) 18.5 11.5-14.5 [place] [address]-12-18 13:08:00 Test Item Value Reference Range Interpretation Comments Platelet (test code = Platelet) 218 133-450 [place] 519362-12-18 13:08:00 Test Item Value Reference Range Interpretation Comments MPV (test code = MPV) 7.0 7.4-10.4 [place] 542562-12-17 10:57:00 Test Item Value Reference Range Interpretation Comments Glucose Lvl (test code = Glucose Lvl) 95 70-99 [place] 542562-12-17 10:57:00 Test Item Value Reference Range Interpretation Comments BUN (test code = BUN) 06-01 [place] 542562-12-17 10:57:00 Test Item Value Reference Range Interpretation Comments Creatinine Lvl (test code = Creatinine 1.02 0.50-1.40 Lvl) [facility]2022-12-17 10:57:00 Test Item Value Reference Range Interpretation Comments Sodium Lvl (test code = Sodium Lvl) 142 135-145 [facility]2022-12-17 10:57:00 Test Item Value Reference Range Interpretation Comments Potassium Lvl (test code = Potassium 4.1 3.5-5.1 Lvl) [place] 542562-12-17 10:57:00 Test Item Value Reference Range Interpretation Comments Chloride Lvl (test code = Chloride Lvl) 109 95-109 [place] 542562-12-17 10:57:00 Test Item Value Reference Range Interpretation Comments CO2 (test code = CO2) 28 24-32 [facility]2022-12-17 10:57:00 Test Item Value Reference Range Interpretation Comments Calcium Lvl (test code = Calcium Lvl) 8.5 8.5-10.5 [facility]2022-12-17 10:57:00 Test Item Value Reference Range Interpretation Comments AGAP (test code = AGAP) 9.1 10.0-20.0 [place] 542562-12-17 10:57:00 Test Item Value Reference Range Interpretation Comments eGFR (test code = eGFR) 55 [facility]zOJLACVTEM7780[facility]31-29 10:57:00 Test Item Value Reference Range Interpretation Comments Glucose Lvl (test code = Glucose Lvl) 95 70-99 [place] 930682-12-17 10:57:00 Test Item Value Reference Range Interpretation Comments BUN (test code = BUN) 28 [facility]GjjommrNVSINYGFF2326-18-06 10:57:00 Test Item Value Reference Range Interpretation Comments Creatinine Lvl (test code = Creatinine 1.02 0.50-1.40 Lvl) [facility] HospitalWipegouXXSMFHAUY2507-48-49 10:57:00 Test Item Value Reference Range Interpretation Comments Sodium Lvl (test code = Sodium Lvl) 142 135-145 [place] 930682-12-17 10:57:00 Test Item Value Reference Range Interpretation Comments Potassium Lvl (test code = Potassium 4.1 3.5-5.1 Lvl) [facility] HospitalVvrhzljKMOUJSBSH9075-40-27 10:57:00 Test Item Value Reference Range Interpretation Comments Chloride Lvl (test code = Chloride Lvl) 109 95-109 [facility] HospitalXrvdmdyEEMINVACL6067-85-36 10:57:00 Test Item Value Reference Range Interpretation Comments CO2 (test code = CO2) 28 24-32 [facility] HospitalSkksgmbBTVYDXRLK4102-72-61 10:57:00 Test Item Value Reference Range Interpretation Comments Calcium Lvl (test code = Calcium Lvl) 8.5 8.5-10.5 [facility] HospitalMdgrzbgISEJGSCQF5117-25-26 10:57:00 Test Item Value Reference Range Interpretation Comments AGAP (test code = AGAP) 9.1 10.0-20.0 [facility] HospitalCrziryiFSXZRGWCY7103-77-63 10:57:00 Test Item Value Reference Range Interpretation Comments eGFR (test code = eGFR) 55 [facility]YjwsnqkGDVEYRBZYI1916-42-60 10:57:00 Test Item Value Reference Range Interpretation Comments Segs (test code = Segs) 67.0 45.0-75.0 [facility] CenterIosmihmYDVRJYSLZA0588-94-38 10:57:00 Test Item Value Reference Range Interpretation Comments Lymphocytes (test code = Lymphocytes) 21.5 20.0-40.0 [facility] CenterRtceumdCZEHKXTSZN9097-16-45 10:57:00 Test Item Value Reference Range Interpretation Comments Monocytes (test code = Monocytes) 9.0 2.0-12.0 [place] 519362-12-17 10:57:00 Test Item Value Reference Range Interpretation Comments Eosinophils (test code = 1.8 See_Comment [A utomated message] The Eosinophils) system which ge nerated this result tra nsmitted reference range : <=4.0. The reference r patria was not used to int erpret this result as normal/abnormal . [place] 519362-12-17 10:57:00 Test Item Value Reference Range Interpretation Comments Basophils (test code = 0.7 See_Comment [Aut omated message] The Basophils) system which ge nerated this result tra nsmitted reference range : <=1.0. The reference r patria was not used to int erpret this result as normal/abnormal . [facility] CenterBdyytjxXGBENTBHMC9142-88-79 10:57:00 Test Item Value Reference Range Interpretation Comments Neutrophils # (test code = Neutrophils 5.7 1.5-8.1 #) [place] 519362-12-17 10:57:00 Test Item Value Reference Range Interpretation Comments Lymphocytes # (test code = Lymphocytes 1.8 1.0-5.5 #) [facility] CenterXlebnbqANKBTYIVPH1073-04-54 10:57:00 Test Item Value Reference Range Interpretation Comments Monocytes # (test code 0.8 See_Comment [Aut omated message] The = Monocytes #) system which generated this result tra nsmitted reference range : <=0.8. The reference r patria was not used to int erpret this result as normal/abnormal . [facility] CenterTwkjtjqKANJLHSSQW4427-93-29 10:57:00 Test Item Value Reference Range Interpretation Comments Eosinophils # (test code 0.2 See_Comment [A utomated message] The = Eosinophils #) system whic h generated this result tra nsmitted reference range : <=0.5. The reference r patria was not used to int erpret this result as normal/abnormal . [facility] CenterBozdkwrIDFZZIJRQA9275-75-27 10:57:00 Test Item Value Reference Range Interpretation Comments Basophils # (test code 0.1 See_Comment [Aut omated message] The = Basophils #) system which generated this result tra nsmitted reference range : <=0.2. The reference r patria was not used to int erpret this result as normal/abnormal . [facility] CenterZyropthCDCJOYPJQS2693-13-02 10:57:00 Test Item Value Reference Range Interpretation Comments Segs (test code = Segs) 67.0 45.0-75.0 [place] 519362-12-17 10:57:00 Test Item Value Reference Range Interpretation Comments Lymphocytes (test code = Lymphocytes) 21.5 20.0-40.0 [place] 519362-12-17 10:57:00 Test Item Value Reference Range Interpretation Comments Monocytes (test code = Monocytes) 9.0 2.0-12.0 [place] [address]-12-17 10:57:00 Test Item Value Reference Range Interpretation Comments Eosinophils (test code = 1.8 See_Comment [A utomated message] The Eosinophils) system which ge nerated this result tra nsmitted reference range : <=4.0. The reference r patria was not used to int erpret this result as normal/abnormal . [place] [address]-12-17 10:57:00 Test Item Value Reference Range Interpretation Comments Basophils (test code = 0.7 See_Comment [Aut omated message] The Basophils) system which ge nerated this result tra nsmitted reference range : <=1.0. The reference r patria was not used to int erpret this result as normal/abnormal . [address]12-17 10:57:00 Test Item Value Reference Range Interpretation Comments Neutrophils # (test code = Neutrophils 5.7 1.5-8.1 #) [place] [address]-12-17 10:57:00 Test Item Value Reference Range Interpretation Comments Lymphocytes # (test code = Lymphocytes 1.8 1.0-5.5 #) [address]12-17 10:57:00 Test Item Value Reference Range Interpretation Comments Monocytes # (test code 0.8 See_Comment [Aut omated message] The = Monocytes #) system which generated this result tra nsmitted reference range : <=0.8. The reference r patria was not used to int erpret this result as normal/abnormal . [place] [address]-12-17 10:57:00 Test Item Value Reference Range Interpretation Comments Eosinophils # (test code 0.2 See_Comment [A utomated message] The = Eosinophils #) system whic h generated this result tra nsmitted reference range : <=0.5. The reference r patria was not used to int erpret this result as normal/abnormal . [place] [address]-12-17 10:57:00 Test Item Value Reference Range Interpretation Comments Basophils # (test code 0.1 See_Comment [Aut omated message] The = Basophils #) system which generated this result tra nsmitted reference range : <=0.2. The reference r patria was not used to int erpret this result as normal/abnormal . [place] [address]-12-17 10:57:00 Test Item Value Reference Range Interpretation Comments WBC (test code = WBC) 8.6 3.7-10.4 [place] [address]-12-17 10:57:00 Test Item Value Reference Range Interpretation Comments RBC (test code = RBC) 2.52 4.20-5.40 [place] [address]-12-17 10:57:00 Test Item Value Reference Range Interpretation Comments Hgb (test code = Hgb) 8.2 12.0-16.0 [place] [address]-12-17 10:57:00 Test Item Value Reference Range Interpretation Comments Hct (test code = Hct) 24.5 36.0-48.0 [place] [address]-12-17 10:57:00 Test Item Value Reference Range Interpretation Comments MCV (test code = MCV) 97.2 80.0-98.0 [place] [address]-12-17 10:57:00 Test Item Value Reference Range Interpretation Comments MCH (test code = MCH) 32.6 pg 27.0-31.0 [place] [address]-12-17 10:57:00 Test Item Value Reference Range Interpretation Comments MCHC (test code = MCHC) 33.5 32.0-36.0 [place] 519362-12-17 10:57:00 Test Item Value Reference Range Interpretation Comments RDW (test code = RDW) 18.7 11.5-14.5 [place] 519362-12-17 10:57:00 Test Item Value Reference Range Interpretation Comments Platelet (test code = Platelet) 233 133-450 [place] 519362-12-17 10:57:00 Test Item Value Reference Range Interpretation Comments MPV (test code = MPV) 7.0 7.4-10.4 [place] [address]-12-17 10:57:00 Test Item Value Reference Range Interpretation Comments MCV (test code = MCV) 97.2 80.0-98.0 [place] [address]-12-17 10:57:00 Test Item Value Reference Range Interpretation Comments MCH (test code = MCH) 32.6 pg 27.0-31.0 [address]12-17 10:57:00 Test Item Value Reference Range Interpretation Comments MCHC (test code = MCHC) 33.5 32.0-36.0 [place] [address]-12-17 10:57:00 Test Item Value Reference Range Interpretation Comments RDW (test code = RDW) 18.7 11.5-14.5 [place] [address]-12-17 10:57:00 Test Item Value Reference Range Interpretation Comments Platelet (test code = Platelet) 233 133-450 [place] [address]-12-17 10:57:00 Test Item Value Reference Range Interpretation Comments MPV (test code = MPV) 7.0 7.4-10.4 [place] 542562-12-17 10:57:00 Test Item Value Reference Range Interpretation Comments Glucose Lvl (test code = Glucose Lvl) 95 70-99 [place] 542562-12-17 10:57:00 Test Item Value Reference Range Interpretation Comments BUN (test code = BUN) 28 - [place] 542562-12-17 10:57:00 Test Item Value Reference Range Interpretation Comments Creatinine Lvl (test code = Creatinine 1.02 0.50-1.40 Lvl) [place] 542562-12-17 10:57:00 Test Item Value Reference Range Interpretation Comments Sodium Lvl (test code = Sodium Lvl) 142 135-145 [place] 542562-12-17 10:57:00 Test Item Value Reference Range Interpretation Comments Potassium Lvl (test code = Potassium 4.1 3.5-5.1 Lvl) [place] 542562-12-17 10:57:00 Test Item Value Reference Range Interpretation Comments Chloride Lvl (test code = Chloride Lvl) 109 95-109 [place] 542562-12-17 10:57:00 Test Item Value Reference Range Interpretation Comments CO2 (test code = CO2) 28 24-32 [place] 542562-12-17 10:57:00 Test Item Value Reference Range Interpretation Comments Calcium Lvl (test code = Calcium Lvl) 8.5 8.5-10.5 [place] 542562-12-17 10:57:00 Test Item Value Reference Range Interpretation Comments AGAP (test code = AGAP) 9.1 10.0-20.0 [facility]2022-12-17 10:57:00 Test Item Value Reference Range Interpretation Comments eGFR (test code = eGFR) 55 [place] [address]-12-17 10:57:00 Test Item Value Reference Range Interpretation Comments Glucose Lvl (test code = Glucose Lvl) 95 70-99 [place] [address]-12-17 10:57:00 Test Item Value Reference Range Interpretation Comments BUN (test code = BUN) 28 7-22 [place] 930682-12-17 10:57:00 Test Item Value Reference Range Interpretation Comments Creatinine Lvl (test code = Creatinine 1.02 0.50-1.40 Lvl) [facility] 10:57:00 Test Item Value Reference Range Interpretation Comments Sodium Lvl (test code = Sodium Lvl) 142 135-145 [place] 930682-12-17 10:57:00 Test Item Value Reference Range Interpretation Comments Potassium Lvl (test code = Potassium 4.1 3.5-5.1 Lvl) [facility]KtnarvuGWSOAJTJH2485-89-03 10:57:00 Test Item Value Reference Range Interpretation Comments Chloride Lvl (test code = Chloride Lvl) 109 95-109 [facility] HospitalMrghyscRAFYLUDAD3224-07-98 10:57:00 Test Item Value Reference Range Interpretation Comments CO2 (test code = CO2) 28 24-32 [place] 930682-12-17 10:57:00 Test Item Value Reference Range Interpretation Comments Calcium Lvl (test code = Calcium Lvl) 8.5 8.5-10.5 [place] [address]-12-17 10:57:00 Test Item Value Reference Range Interpretation Comments AGAP (test code = AGAP) 9.1 10.0-20.0 [place] [address]-12-17 10:57:00 Test Item Value Reference Range Interpretation Comments eGFR (test code = eGFR) 55 [place] 519362-12-17 10:57:00 Test Item Value Reference Range Interpretation Comments Segs (test code = Segs) 67.0 45.0-75.0 [facility]neeufeRBHLGAEVCQ6617[facility]51-95 10:57:00 Test Item Value Reference Range Interpretation Comments Lymphocytes (test code = Lymphocytes) 21.5 20.0-40.0 [facility] CenterBgcvcboSWQPKHQVGZ9283-11-49 10:57:00 Test Item Value Reference Range Interpretation Comments Monocytes (test code = Monocytes) 9.0 2.0-12.0 [place] 519362-12-17 10:57:00 Test Item Value Reference Range Interpretation Comments Eosinophils (test code = 1.8 See_Comment [A utomated message] The Eosinophils) system which ge nerated this result tra nsmitted reference range : <=4.0. The reference r patria was not used to int erpret this result as normal/abnormal . [facility] CenterLhxurrwWVVLKBNUBK3446-31-38 10:57:00 Test Item Value Reference Range Interpretation Comments Basophils (test code = 0.7 See_Comment [Aut omated message] The Basophils) system which ge nerated this result tra nsmitted reference range : <=1.0. The reference r patria was not used to int erpret this result as normal/abnormal . [facility] CenterXfbjbdvVIJVACLLOE7693-78-01 10:57:00 Test Item Value Reference Range Interpretation Comments Neutrophils # (test code = Neutrophils 5.7 1.5-8.1 #) [facility]RdqyaegCAZTDFBJKD9425-49-03 10:57:00 Test Item Value Reference Range Interpretation Comments Lymphocytes # (test code = Lymphocytes 1.8 1.0-5.5 #) [facility] CenterQflzsexIRAJQEFGOB1262-65-59 10:57:00 Test Item Value Reference Range Interpretation Comments Monocytes # (test code 0.8 See_Comment [Aut omated message] The = Monocytes #) system which generated this result tra nsmitted reference range : <=0.8. The reference r patria was not used to int erpret this result as normal/abnormal . [facility] CenterDfmmfnsXABLBUJSNN9785-17-19 10:57:00 Test Item Value Reference Range Interpretation Comments Eosinophils # (test code 0.2 See_Comment [A utomated message] The = Eosinophils #) system whic h generated this result tra nsmitted reference range : <=0.5. The reference r patria was not used to int erpret this result as normal/abnormal . [facility] CenterApclmuxVPHMBMLGAY3467-68-15 10:57:00 Test Item Value Reference Range Interpretation Comments Basophils # (test code 0.1 See_Comment [Aut omated message] The = Basophils #) system which generated this result tra nsmitted reference range : <=0.2. The reference r patria was not used to int erpret this result as normal/abnormal . [place]362-12-17 10:57:00 Test Item Value Reference Range Interpretation Comments Segs (test code = Segs) 67.0 45.0-75.0 [place] 519362-12-17 10:57:00 Test Item Value Reference Range Interpretation Comments Lymphocytes (test code = Lymphocytes) 21.5 20.0-40.0 [place] 519362-12-17 10:57:00 Test Item Value Reference Range Interpretation Comments Monocytes (test code = Monocytes) 9.0 2.0-12.0 [place]362-12-17 10:57:00 Test Item Value Reference Range Interpretation Comments Eosinophils (test code = 1.8 See_Comment [A utomated message] The Eosinophils) system which ge nerated this result tra nsmitted reference range : <=4.0. The reference r patria was not used to int erpret this result as normal/abnormal . [place] [address]-12-17 10:57:00 Test Item Value Reference Range Interpretation Comments Basophils (test code = 0.7 See_Comment [Aut omated message] The Basophils) system which ge nerated this result tra nsmitted reference range : <=1.0. The reference r patria was not used to int erpret this result as normal/abnormal . [facility] CenterNnkmnevVGRVNZNOJZ2188-22-78 10:57:00 Test Item Value Reference Range Interpretation Comments Neutrophils # (test code = Neutrophils 5.7 1.5-8.1 #) [place] [address]-12-17 10:57:00 Test Item Value Reference Range Interpretation Comments Lymphocytes # (test code = Lymphocytes 1.8 1.0-5.5 #) [place] [address]362-12-17 10:57:00 Test Item Value Reference Range Interpretation Comments Monocytes # (test code 0.8 See_Comment [Aut omated message] The = Monocytes #) system which generated this result tra nsmitted reference range : <=0.8. The reference r patria was not used to int erpret this result as normal/abnormal . [facility] CenterLqsmbjeQBTGOFQLIL5564-09-67 10:57:00 Test Item Value Reference Range Interpretation Comments Eosinophils # (test code 0.2 See_Comment [A utomated message] The = Eosinophils #) system whic h generated this result tra nsmitted reference range : <=0.5. The reference r patria was not used to int erpret this result as normal/abnormal . [facility] CenterIovmdyuERHJBOYHML8131-48-59 10:57:00 Test Item Value Reference Range Interpretation Comments Basophils # (test code 0.1 See_Comment [Aut omated message] The = Basophils #) system which generated this result tra nsmitted reference range : <=0.2. The reference r patria was not used to int erpret this result as normal/abnormal . [facility] CenterOjjjmnwBLTJUFDWJJ9208-30-62 10:57:00 Test Item Value Reference Range Interpretation Comments WBC (test code = WBC) 8.6 3.7-10.4 [facility] CenterMahuihsHBUNOVECWW3600-35-66 10:57:00 Test Item Value Reference Range Interpretation Comments RBC (test code = RBC) 2.52 4.20-5.40 [facility] CenterJchhhpyZRJGQAPRRJ8819-72-78 10:57:00 Test Item Value Reference Range Interpretation Comments Hgb (test code = Hgb) 8.2 12.0-16.0 [facility] CenterHueldqxXDLBQMHEPC8373-24-58 10:57:00 Test Item Value Reference Range Interpretation Comments Hct (test code = Hct) 24.5 36.0-48.0 [facility] CenterTxgzzplRELZGCTXPX3348-75-95 10:57:00 Test Item Value Reference Range Interpretation Comments MCV (test code = MCV) 97.2 80.0-98.0 [place] [address]362-12-17 10:57:00 Test Item Value Reference Range Interpretation Comments MCH (test code = MCH) 32.6 pg 27.0-31.0 [place]362-12-17 10:57:00 Test Item Value Reference Range Interpretation Comments MCHC (test code = MCHC) 33.5 32.0-36.0 [place]362-12-17 10:57:00 Test Item Value Reference Range Interpretation Comments RDW (test code = RDW) 18.7 11.5-14.5 [place] [address]-12-17 10:57:00 Test Item Value Reference Range Interpretation Comments Platelet (test code = Platelet) 233 133-450 [place] 519362-12-17 10:57:00 Test Item Value Reference Range Interpretation Comments MPV (test code = MPV) 7.0 7.4-10.4 [place] 542562-12-17 10:57:00 Test Item Value Reference Range Interpretation Comments Glucose Lvl (test code = Glucose Lvl) 95 70-99 [place] 542562-12-17 10:57:00 Test Item Value Reference Range Interpretation Comments BUN (test code = BUN) 28 7-22 [place] 542562-12-17 10:57:00 Test Item Value Reference Range Interpretation Comments Creatinine Lvl (test code = Creatinine 1.02 0.50-1.40 Lvl) [facility]2022-12-17 10:57:00 Test Item Value Reference Range Interpretation Comments Sodium Lvl (test code = Sodium Lvl) 142 135-145 [place] 542562-12-17 10:57:00 Test Item Value Reference Range Interpretation Comments Potassium Lvl (test code = Potassium 4.1 3.5-5.1 Lvl) [facility]2022-12-17 10:57:00 Test Item Value Reference Range Interpretation Comments Chloride Lvl (test code = Chloride Lvl) 109 95-109 [place] 542562-12-17 10:57:00 Test Item Value Reference Range Interpretation Comments CO2 (test code = CO2) 28 24-32 [place] 542562-12-17 10:57:00 Test Item Value Reference Range Interpretation Comments Calcium Lvl (test code = Calcium Lvl) 8.5 8.5-10.5 [place] 542562-12-17 10:57:00 Test Item Value Reference Range Interpretation Comments AGAP (test code = AGAP) 9.1 10.0-20.0 [place] 542562-12-17 10:57:00 Test Item Value Reference Range Interpretation Comments eGFR (test code = eGFR) 55 [place] 930682-12-17 10:57:00 Test Item Value Reference Range Interpretation Comments Glucose Lvl (test code = Glucose Lvl) 95 70-99 [facility] HospitalEchomqzARAGBOMFZ1017-65-93 10:57:00 Test Item Value Reference Range Interpretation Comments BUN (test code = BUN) 28 7-22 [place] 930682-12-17 10:57:00 Test Item Value Reference Range Interpretation Comments Creatinine Lvl (test code = Creatinine 1.02 0.50-1.40 Lvl) [facility] HospitalTgdkqvyNXEFRKFWP3775-32-83 10:57:00 Test Item Value Reference Range Interpretation Comments Sodium Lvl (test code = Sodium Lvl) 142 135-145 [facility] HospitalQwehhnxYEXBJHSEQ4296-34-39 10:57:00 Test Item Value Reference Range Interpretation Comments Potassium Lvl (test code = Potassium 4.1 3.5-5.1 Lvl) [facility] HospitalQhkcywuCMLVIGDIH9381-29-24 10:57:00 Test Item Value Reference Range Interpretation Comments Chloride Lvl (test code = Chloride Lvl) 109 95-109 [facility] HospitalRcyqcmuVNNUERVIP3195-22-16 10:57:00 Test Item Value Reference Range Interpretation Comments CO2 (test code = CO2) 28 24-32 [facility] HospitalMzvteeqNWPPBZCPG6270-76-18 10:57:00 Test Item Value Reference Range Interpretation Comments Calcium Lvl (test code = Calcium Lvl) 8.5 8.5-10.5 [facility] HospitalLkxpomzZZDFBJZWH6335-77-88 10:57:00 Test Item Value Reference Range Interpretation Comments AGAP (test code = AGAP) 9.1 10.0-20.0 [facility] HospitalElchyrnIEJYJBVXT2534-69-28 10:57:00 Test Item Value Reference Range Interpretation Comments eGFR (test code = eGFR) 55 [facility] CenterOvaocwzYKKZKRAOQI4031-60-26 10:57:00 Test Item Value Reference Range Interpretation Comments Segs (test code = Segs) 67.0 45.0-75.0 [place] 519362-12-17 10:57:00 Test Item Value Reference Range Interpretation Comments Lymphocytes (test code = Lymphocytes) 21.5 20.0-40.0 [place] 519362-12-17 10:57:00 Test Item Value Reference Range Interpretation Comments Monocytes (test code = Monocytes) 9.0 2.0-12.0 [place] 519362-12-17 10:57:00 Test Item Value Reference Range Interpretation Comments Eosinophils (test code = 1.8 See_Comment [A utomated message] The Eosinophils) system which ge nerated this result tra nsmitted reference range : <=4.0. The reference r patria was not used to int erpret this result as normal/abnormal . [facility] CenterYlpcuazZRRQSCPNGE7703-61-07 10:57:00 Test Item Value Reference Range Interpretation Comments Basophils (test code = 0.7 See_Comment [Aut omated message] The Basophils) system which ge nerated this result tra nsmitted reference range : <=1.0. The reference r patria was not used to int erpret this result as normal/abnormal . [facility] CenterBqqnmlsHCMJWOAEDK0217-59-48 10:57:00 Test Item Value Reference Range Interpretation Comments Neutrophils # (test code = Neutrophils 5.7 1.5-8.1 #) [place]362-12-17 10:57:00 Test Item Value Reference Range Interpretation Comments Lymphocytes # (test code = Lymphocytes 1.8 1.0-5.5 #) [place] 519362-12-17 10:57:00 Test Item Value Reference Range Interpretation Comments Monocytes # (test code 0.8 See_Comment [Aut omated message] The = Monocytes #) system which generated this result tra nsmitted reference range : <=0.8. The reference r patria was not used to int erpret this result as normal/abnormal . [facility] CenterAwmnpdmSCVCZRXLAI4938-17-23 10:57:00 Test Item Value Reference Range Interpretation Comments Eosinophils # (test code 0.2 See_Comment [A utomated message] The = Eosinophils #) system [facility] generated this result tra nsmitted reference range : <=0.5. The reference r patria was not used to int erpret this result as normal/abnormal . [facility] CenterVofifdxWSGWNQMWKY6964-49-25 10:57:00 Test Item Value Reference Range Interpretation Comments Basophils # (test code 0.1 See_Comment [Aut omated message] The = Basophils #) system which generated this result tra nsmitted reference range : <=0.2. The reference r patria was not used to int erpret this result as normal/abnormal . [place]362-12-17 10:57:00 Test Item Value Reference Range Interpretation Comments Segs (test code = Segs) 67.0 45.0-75.0 [facility] CenterHtehlufTPBFHKDDWY8073-45-58 10:57:00 Test Item Value Reference Range Interpretation Comments Lymphocytes (test code = Lymphocytes) 21.5 20.0-40.0 [facility] CenterZkltjyxSIHMRGBFUK7488-99-42 10:57:00 Test Item Value Reference Range Interpretation Comments Monocytes (test code = Monocytes) 9.0 2.0-12.0 [facility] CenterTbylgncXCVNUOYDJK1259-96-44 10:57:00 Test Item Value Reference Range Interpretation Comments Eosinophils (test code = 1.8 See_Comment [A utomated message] The Eosinophils) system which ge nerated this result tra nsmitted reference range : <=4.0. The reference r patria was not used to int erpret this result as normal/abnormal . [facility] CenterRjsuxigLRDWKWJBIZ8856-84-94 10:57:00 Test Item Value Reference Range Interpretation Comments Basophils (test code = 0.7 See_Comment [Aut omated message] The Basophils) system which ge nerated this result tra nsmitted reference range : <=1.0. The reference r patria was not used to int erpret this result as normal/abnormal . [facility] CenterBtkrkixKRLCCNEWIK4357-94-06 10:57:00 Test Item Value Reference Range Interpretation Comments Neutrophils # (test code = Neutrophils 5.7 1.5-8.1 #) [facility] CenterAlrviguIJUBERKJKL4451-31-87 10:57:00 Test Item Value Reference Range Interpretation Comments Lymphocytes # (test code = Lymphocytes 1.8 1.0-5.5 #) [place]362-12-17 10:57:00 Test Item Value Reference Range Interpretation Comments Monocytes # (test code 0.8 See_Comment [Aut omated message] The = Monocytes #) system which generated this result tra nsmitted reference range : <=0.8. The reference r patria was not used to int erpret this result as normal/abnormal . [facility] CenterRpmybmtVLZYYVZZCI6955-20-12 10:57:00 Test Item Value Reference Range Interpretation Comments Eosinophils # (test code 0.2 See_Comment [A utomated message] The = Eosinophils #) system whic h generated this result tra nsmitted reference range : <=0.5. The reference r patria was not used to int erpret this result as normal/abnormal . [facility] CenterCjhdnltCUEPLHHFYN2980-95-87 10:57:00 Test Item Value Reference Range Interpretation Comments Basophils # (test code 0.1 See_Comment [Aut omated message] The = Basophils #) system which generated this result tra nsmitted reference range : <=0.2. The reference r patria was not used to int erpret this result as normal/abnormal . [facility] CenterUyfqjfjSLIIEDSLQC6076-90-95 10:57:00 Test Item Value Reference Range Interpretation Comments WBC (test code = WBC) 8.6 3.7-10.4 [facility] CenterBejpacpJINKGBJMXC7303-98-88 10:57:00 Test Item Value Reference Range Interpretation Comments RBC (test code = RBC) 2.52 4.20-5.40 [facility] CenterQwxpdifUYZCUZFTBJ0919-68-53 10:57:00 Test Item Value Reference Range Interpretation Comments Hgb (test code = Hgb) 8.2 12.0-16.0 [facility] CenterFbixrcwDUCIXDFKEQ7742-11-84 10:57:00 Test Item Value Reference Range Interpretation Comments Hct (test code = Hct) 24.5 36.0-48.0 [facility] CenterFmszluiUZOHETZKSB2227-14-85 10:57:00 Test Item Value Reference Range Interpretation Comments MCV (test code = MCV) 97.2 80.0-98.0 [facility] CenterIwkfjbpLGMPOEDMTB6532-74-90 10:57:00 Test Item Value Reference Range Interpretation Comments MCH (test code = MCH) 32.6 pg 27.0-31.0 [facility] CenterUjoahnuRGYJRDARGW5009-13-66 10:57:00 Test Item Value Reference Range Interpretation Comments MCHC (test code = MCHC) 33.5 32.0-36.0 [facility] CenterQpcdwzhEXMMGNYRFS6894-08-16 10:57:00 Test Item Value Reference Range Interpretation Comments RDW (test code = RDW) 18.7 11.5-14.5 [place] 519362-12-17 10:57:00 Test Item Value Reference Range Interpretation Comments Platelet (test code = Platelet) 233 133-450 [facility] CenterMhdlhnoZWPKAKIMBP9336-70-62 10:57:00 Test Item Value Reference Range Interpretation Comments MPV (test code = MPV) 7.0 7.4-10.4 [facility]2022-12-17 10:57:00 Test Item Value Reference Range Interpretation Comments Glucose Lvl (test code = Glucose Lvl) 95 70-99 [place] 542562-12-17 10:57:00 Test Item Value Reference Range Interpretation Comments BUN (test code = BUN) 28 06-01 [place] 542562-12-17 10:57:00 Test Item Value Reference Range Interpretation Comments Creatinine Lvl (test code = Creatinine 1.02 0.50-1.40 Lvl) [place] 542562-12-17 10:57:00 Test Item Value Reference Range Interpretation Comments Sodium Lvl (test code = Sodium Lvl) 142 135-145 [place] 542562-12-17 10:57:00 Test Item Value Reference Range Interpretation Comments Potassium Lvl (test code = Potassium 4.1 3.5-5.1 Lvl) [place] 542562-12-17 10:57:00 Test Item Value Reference Range Interpretation Comments Chloride Lvl (test code = Chloride Lvl) 109 95-109 [place] 542562-12-17 10:57:00 Test Item Value Reference Range Interpretation Comments CO2 (test code = CO2) 24-32 [place] 542562-12-17 10:57:00 Test Item Value Reference Range Interpretation Comments Calcium Lvl (test code = Calcium Lvl) 8.5 8.5-10.5 [facility]2022-12-17 10:57:00 Test Item Value Reference Range Interpretation Comments AGAP (test code = AGAP) 9.1 10.0-20.0 [facility]2022-12-17 10:57:00 Test Item Value Reference Range Interpretation Comments eGFR (test code = eGFR) 55 [place] [address]-12-17 10:57:00 Test Item Value Reference Range Interpretation Comments Glucose Lvl (test code = Glucose Lvl) 95 70-99 [facility]GMNKFCPT0876[facility]11-47 10:57:00 Test Item Value Reference Range Interpretation Comments BUN (test code = BUN) 28 - [place] 930682-12-17 10:57:00 Test Item Value Reference Range Interpretation Comments Creatinine Lvl (test code = Creatinine 1.02 0.50-1.40 Lvl) [facility]irplrqPLOODXOSU9549-23-02 10:57:00 Test Item Value Reference Range Interpretation Comments Sodium Lvl (test code = Sodium Lvl) 142 135-145 [facility]RbdloxjVXOJHFTYD3739-90-11 10:57:00 Test Item Value Reference Range Interpretation Comments Potassium Lvl (test code = Potassium 4.1 3.5-5.1 Lvl) [facility] HospitalLfxnkekPLHOTDZEP8093-84-03 10:57:00 Test Item Value Reference Range Interpretation Comments Chloride Lvl (test code = Chloride Lvl) 109 95-109 [place] 930682-12-17 10:57:00 Test Item Value Reference Range Interpretation Comments CO2 (test code = CO2) 28 24-32 [facility] HospitalVvegcniZSJOVRZGZ6551-64-21 10:57:00 Test Item Value Reference Range Interpretation Comments Calcium Lvl (test code = Calcium Lvl) 8.5 8.5-10.5 [place] 930682-12-17 10:57:00 Test Item Value Reference Range Interpretation Comments AGAP (test code = AGAP) 9.1 10.0-20.0 [facility] HospitalEkztoxbBTGJAKHOZ3470-30-89 10:57:00 Test Item Value Reference Range Interpretation Comments eGFR (test code = eGFR) 55 [facility]KMYHPZICLR8442[facility]-78 10:57:00 Test Item Value Reference Range Interpretation Comments Segs (test code = Segs) 67.0 45.0-75.0 [facility]CyqzrrmSRNYGDKLXN1822-48-77 10:57:00 Test Item Value Reference Range Interpretation Comments Lymphocytes (test code = Lymphocytes) 21.5 20.0-40.0 [place] 519362-12-17 10:57:00 Test Item Value Reference Range Interpretation Comments Monocytes (test code = Monocytes) 9.0 2.0-12.0 [place] [address]-12-17 10:57:00 Test Item Value Reference Range Interpretation Comments Eosinophils (test code = 1.8 See_Comment [A utomated message] The Eosinophils) system which ge nerated this result tra nsmitted reference range : <=4.0. The reference r patria was not used to int erpret this result as normal/abnormal . [facility] CenterNmkuzoqSLIRNCERBO7751-72-76 10:57:00 Test Item Value Reference Range Interpretation Comments Basophils (test code = 0.7 See_Comment [Aut omated message] The Basophils) system which ge nerated this result tra nsmitted reference range : <=1.0. The reference r patria was not used to int erpret this result as normal/abnormal . [place] 519362-12-17 10:57:00 Test Item Value Reference Range Interpretation Comments Neutrophils # (test code = Neutrophils 5.7 1.5-8.1 #) [facility] CenterFmhzhsvPANLFMPSAF2138-92-77 10:57:00 Test Item Value Reference Range Interpretation Comments Lymphocytes # (test code = Lymphocytes 1.8 1.0-5.5 #) [place] [address]-12-17 10:57:00 Test Item Value Reference Range Interpretation Comments Monocytes # (test code 0.8 See_Comment [Aut omated message] The = Monocytes #) system which generated this result tra nsmitted reference range : <=0.8. The reference r patria was not used to int erpret this result as normal/abnormal . [place] 519362-12-17 10:57:00 Test Item Value Reference Range Interpretation Comments Eosinophils # (test code 0.2 See_Comment [A utomated message] The = Eosinophils #) system whic h generated this result tra nsmitted reference range : <=0.5. The reference r patria was not used to int erpret this result as normal/abnormal . [facility] CenterDteygwdLZVCVGRXCN7067-18-23 10:57:00 Test Item Value Reference Range Interpretation Comments Basophils # (test code 0.1 See_Comment [Aut omated message] The = Basophils #) system which generated this result tra nsmitted reference range : <=0.2. The reference r patria was not used to int erpret this result as normal/abnormal . [place] 519362-12-17 10:57:00 Test Item Value Reference Range Interpretation Comments Segs (test code = Segs) 67.0 45.0-75.0 [place] [address]-12-17 10:57:00 Test Item Value Reference Range Interpretation Comments Lymphocytes (test code = Lymphocytes) 21.5 20.0-40.0 [place] [address]-12-17 10:57:00 Test Item Value Reference Range Interpretation Comments Monocytes (test code = Monocytes) 9.0 2.0-12.0 [address]12-17 10:57:00 Test Item Value Reference Range Interpretation Comments Eosinophils (test code = 1.8 See_Comment [A utomated message] The Eosinophils) system which ge nerated this result tra nsmitted reference range : <=4.0. The reference r patria was not used to int erpret this result as normal/abnormal . [place] [address]-12-17 10:57:00 Test Item Value Reference Range Interpretation Comments Basophils (test code = 0.7 See_Comment [Aut omated message] The Basophils) system which ge nerated this result tra nsmitted reference range : <=1.0. The reference r patria was not used to int erpret this result as normal/abnormal . [address]12-17 10:57:00 Test Item Value Reference Range Interpretation Comments Neutrophils # (test code = Neutrophils 5.7 1.5-8.1 #) [address]12-17 10:57:00 Test Item Value Reference Range Interpretation Comments Lymphocytes # (test code = Lymphocytes 1.8 1.0-5.5 #) [address]12-17 10:57:00 Test Item Value Reference Range Interpretation Comments Monocytes # (test code 0.8 See_Comment [Aut omated message] The = Monocytes #) system which generated this result tra nsmitted reference range : <=0.8. The reference r patria was not used to int erpret this result as normal/abnormal . [place] [address]-12-17 10:57:00 Test Item Value Reference Range Interpretation Comments Eosinophils # (test code 0.2 See_Comment [A utomated message] The = Eosinophils #) system whic h generated this result tra nsmitted reference range : <=0.5. The reference r patria was not used to int erpret this result as normal/abnormal . [place] [address]-12-17 10:57:00 Test Item Value Reference Range Interpretation Comments Basophils # (test code 0.1 See_Comment [Aut omated message] The = Basophils #) system which generated this result tra nsmitted reference range : <=0.2. The reference r patria was not used to int erpret this result as normal/abnormal . [place] [address]-12-17 10:57:00 Test Item Value Reference Range Interpretation Comments WBC (test code = WBC) 8.6 3.7-10.4 [place] [address]-12-17 10:57:00 Test Item Value Reference Range Interpretation Comments RBC (test code = RBC) 2.52 4.20-5.40 [place] [address]-12-17 10:57:00 Test Item Value Reference Range Interpretation Comments Hgb (test code = Hgb) 8.2 12.0-16.0 [place] [address]-12-17 10:57:00 Test Item Value Reference Range Interpretation Comments Hct (test code = Hct) 24.5 36.0-48.0 [place] 519362-12-17 10:57:00 Test Item Value Reference Range Interpretation Comments MCV (test code = MCV) 97.2 80.0-98.0 [place] [address]-12-17 10:57:00 Test Item Value Reference Range Interpretation Comments MCH (test code = MCH) 32.6 pg 27.0-31.0 [place] [address]-12-17 10:57:00 Test Item Value Reference Range Interpretation Comments MCHC (test code = MCHC) 33.5 32.0-36.0 [place] [address]-12-17 10:57:00 Test Item Value Reference Range Interpretation Comments RDW (test code = RDW) 18.7 11.5-14.5 [place] [address]-12-17 10:57:00 Test Item Value Reference Range Interpretation Comments Platelet (test code = Platelet) 233 133-450 [place] 519362-12-17 10:57:00 Test Item Value Reference Range Interpretation Comments MPV (test code = MPV) 7.0 7.4-10.4 [facility]2022-12-17 10:57:00 Test Item Value Reference Range Interpretation Comments Glucose Lvl (test code = Glucose Lvl) 95 70-99 [facility]2022-12-17 10:57:00 Test Item Value Reference Range Interpretation Comments BUN (test code = BUN) 28 7-22 [place] 542562-12-17 10:57:00 Test Item Value Reference Range Interpretation Comments Creatinine Lvl (test code = Creatinine 1.02 0.50-1.40 Lvl) [place] 542562-12-17 10:57:00 Test Item Value Reference Range Interpretation Comments Sodium Lvl (test code = Sodium Lvl) 142 135-145 [place] 542562-12-17 10:57:00 Test Item Value Reference Range Interpretation Comments Potassium Lvl (test code = Potassium 4.1 3.5-5.1 Lvl) [place] 542562-12-17 10:57:00 Test Item Value Reference Range Interpretation Comments Chloride Lvl (test code = Chloride Lvl) 109 95-109 [place] 542562-12-17 10:57:00 Test Item Value Reference Range Interpretation Comments CO2 (test code = CO2) 28 24-32 [place] 542562-12-17 10:57:00 Test Item Value Reference Range Interpretation Comments Calcium Lvl (test code = Calcium Lvl) 8.5 8.5-10.5 [place] 542562-12-17 10:57:00 Test Item Value Reference Range Interpretation Comments AGAP (test code = AGAP) 9.1 10.0-20.0 [place] 542562-12-17 10:57:00 Test Item Value Reference Range Interpretation Comments eGFR (test code = eGFR) 55 [place] [address]-12-17 10:57:00 Test Item Value Reference Range Interpretation Comments Glucose Lvl (test code = Glucose Lvl) 95 70-99 [place] [address]-12-17 10:57:00 Test Item Value Reference Range Interpretation Comments BUN (test code = BUN) 28 7-22 [place] 930682-12-17 10:57:00 Test Item Value Reference Range Interpretation Comments Creatinine Lvl (test code = Creatinine 1.02 0.50-1.40 Lvl) [place] [address]-12-17 10:57:00 Test Item Value Reference Range Interpretation Comments Sodium Lvl (test code = Sodium Lvl) 142 135-145 [place] [address]-12-17 10:57:00 Test Item Value Reference Range Interpretation Comments Potassium Lvl (test code = Potassium 4.1 3.5-5.1 Lvl) [place] 930682-12-17 10:57:00 Test Item Value Reference Range Interpretation Comments Chloride Lvl (test code = Chloride Lvl) 109 95-109 [facility] HospitalOgohftqGTFFIZMCM0320-27-34 10:57:00 Test Item Value Reference Range Interpretation Comments CO2 (test code = CO2) 28 24-32 [place] 930682-12-17 10:57:00 Test Item Value Reference Range Interpretation Comments Calcium Lvl (test code = Calcium Lvl) 8.5 8.5-10.5 [facility]IdymlrxLKWBWLRMB4511-32-02 10:57:00 Test Item Value Reference Range Interpretation Comments AGAP (test code = AGAP) 9.1 10.0-20.0 [place] 930682-12-17 10:57:00 Test Item Value Reference Range Interpretation Comments eGFR (test code = eGFR) 55 [place] 519362-12-17 10:57:00 Test Item Value Reference Range Interpretation Comments Segs (test code = Segs) 67.0 45.0-75.0 [place] 519362-12-17 10:57:00 Test Item Value Reference Range Interpretation Comments Lymphocytes (test code = Lymphocytes) 21.5 20.0-40.0 [place] 519362-12-17 10:57:00 Test Item Value Reference Range Interpretation Comments Monocytes (test code = Monocytes) 9.0 2.0-12.0 [facility]CivfhstRGVGBOOQVM6067-53-08 10:57:00 Test Item Value Reference Range Interpretation Comments Eosinophils (test code = 1.8 See_Comment [A utomated message] The Eosinophils) system which ge nerated this result tra nsmitted reference range : <=4.0. The reference r patria was not used to int erpret this result as normal/abnormal . [place] 519362-12-17 10:57:00 Test Item Value Reference Range Interpretation Comments Basophils (test code = 0.7 See_Comment [Aut omated message] The Basophils) system which ge nerated this result tra nsmitted reference range : <=1.0. The reference r patria was not used to int erpret this result as normal/abnormal . [place] 519362-12-17 10:57:00 Test Item Value Reference Range Interpretation Comments Neutrophils # (test code = Neutrophils 5.7 1.5-8.1 #) [place] 519362-12-17 10:57:00 Test Item Value Reference Range Interpretation Comments Lymphocytes # (test code = Lymphocytes 1.8 1.0-5.5 #) [facility]TvxjzmdXBOFLKPNIJ3182-12-15 10:57:00 Test Item Value Reference Range Interpretation Comments Monocytes # (test code 0.8 See_Comment [Aut omated message] The = Monocytes #) system which generated this result tra nsmitted reference range : <=0.8. The reference r patria was not used to int erpret this result as normal/abnormal . [place] 519362-12-17 10:57:00 Test Item Value Reference Range Interpretation Comments Eosinophils # (test code 0.2 See_Comment [A utomated message] The = Eosinophils #) system whic h generated this result tra nsmitted reference range : <=0.5. The reference r patria was not used to int erpret this result as normal/abnormal . [facility] CenterRlzonkkSFFQJAIZUD9728-55-92 10:57:00 Test Item Value Reference Range Interpretation Comments Basophils # (test code 0.1 See_Comment [Aut omated message] The = Basophils #) system which generated this result tra nsmitted reference range : <=0.2. The reference r patria was not used to int erpret this result as normal/abnormal . [facility] CenterNhmvhlmSWPFCUPXKY1322-21-53 10:57:00 Test Item Value Reference Range Interpretation Comments Segs (test code = Segs) 67.0 45.0-75.0 [facility]PjjgmlbRKKDQLAUJC9844-36-80 10:57:00 Test Item Value Reference Range Interpretation Comments Lymphocytes (test code = Lymphocytes) 21.5 20.0-40.0 [place] 519362-12-17 10:57:00 Test Item Value Reference Range Interpretation Comments Monocytes (test code = Monocytes) 9.0 2.0-12.0 [place] [address]-12-17 10:57:00 Test Item Value Reference Range Interpretation Comments Eosinophils (test code = 1.8 See_Comment [A utomated message] The Eosinophils) system which ge nerated this result tra nsmitted reference range : <=4.0. The reference r patria was not used to int erpret this result as normal/abnormal . [place] 519362-12-17 10:57:00 Test Item Value Reference Range Interpretation Comments Basophils (test code = 0.7 See_Comment [Aut omated message] The Basophils) system which ge nerated this result tra nsmitted reference range : <=1.0. The reference r patria was not used to int erpret this result as normal/abnormal . [place] 519362-12-17 10:57:00 Test Item Value Reference Range Interpretation Comments Neutrophils # (test code = Neutrophils 5.7 1.5-8.1 #) [place] 519362-12-17 10:57:00 Test Item Value Reference Range Interpretation Comments Lymphocytes # (test code = Lymphocytes 1.8 1.0-5.5 #) [place] 519362-12-17 10:57:00 Test Item Value Reference Range Interpretation Comments Monocytes # (test code 0.8 See_Comment [Aut omated message] The = Monocytes #) system which generated this result tra nsmitted reference range : <=0.8. The reference r patria was not used to int erpret this result as normal/abnormal . [facility] CenterHmjuwenHJLWXDPCAC0763-23-54 10:57:00 Test Item Value Reference Range Interpretation Comments Eosinophils # (test code 0.2 See_Comment [A utomated message] The = Eosinophils #) system whic h generated this result tra nsmitted reference range : <=0.5. The reference r patria was not used to int erpret this result as normal/abnormal . [facility] CenterOjnmyqvPOEHUXVPQZ7625-56-79 10:57:00 Test Item Value Reference Range Interpretation Comments Basophils # (test code 0.1 See_Comment [Aut omated message] The = Basophils #) system which generated this result tra nsmitted reference range : <=0.2. The reference r patria was not used to int erpret this result as normal/abnormal . [place] 519362-12-17 10:57:00 Test Item Value Reference Range Interpretation Comments WBC (test code = WBC) 8.6 3.7-10.4 [place] 519362-12-17 10:57:00 Test Item Value Reference Range Interpretation Comments RBC (test code = RBC) 2.52 4.20-5.40 [place] 519362-12-17 10:57:00 Test Item Value Reference Range Interpretation Comments Hgb (test code = Hgb) 8.2 12.0-16.0 [address]12-17 10:57:00 Test Item Value Reference Range Interpretation Comments Hct (test code = Hct) 24.5 36.0-48.0 [place] [address]-12-17 10:57:00 Test Item Value Reference Range Interpretation Comments MCV (test code = MCV) 97.2 80.0-98.0 [place] [address]-12-17 10:57:00 Test Item Value Reference Range Interpretation Comments MCH (test code = MCH) 32.6 pg 27.0-31.0 [address]12-17 10:57:00 Test Item Value Reference Range Interpretation Comments MCHC (test code = MCHC) 33.5 32.0-36.0 [place] [address]-12-17 10:57:00 Test Item Value Reference Range Interpretation Comments RDW (test code = RDW) 18.7 11.5-14.5 [address]12-17 10:57:00 Test Item Value Reference Range Interpretation Comments Platelet (test code = Platelet) 233 133-450 [address]12-17 10:57:00 Test Item Value Reference Range Interpretation Comments MPV (test code = MPV) 7.0 7.4-10.4 [place] 542562-12-17 10:57:00 Test Item Value Reference Range Interpretation Comments Glucose Lvl (test code = Glucose Lvl) 95 70-99 [place] 542562-12-17 10:57:00 Test Item Value Reference Range Interpretation Comments BUN (test code = BUN) 28 7-22 [place] 542562-12-17 10:57:00 Test Item Value Reference Range Interpretation Comments Creatinine Lvl (test code = Creatinine 1.02 0.50-1.40 Lvl) [place] 542562-12-17 10:57:00 Test Item Value Reference Range Interpretation Comments Sodium Lvl (test code = Sodium Lvl) 142 135-145 [place] 542562-12-17 10:57:00 Test Item Value Reference Range Interpretation Comments Potassium Lvl (test code = Potassium 4.1 3.5-5.1 Lvl) [address]12-17 10:57:00 Test Item Value Reference Range Interpretation Comments Chloride Lvl (test code = Chloride Lvl) 109 95-109 [place] 542562-12-17 10:57:00 Test Item Value Reference Range Interpretation Comments CO2 (test code = CO2) [place] 542562-12-17 10:57:00 Test Item Value Reference Range Interpretation Comments Calcium Lvl (test code = Calcium Lvl) 8.5 8.5-10.5 [facility]2022-12-17 10:57:00 Test Item Value Reference Range Interpretation Comments AGAP (test code = AGAP) 9.1 10.0-20.0 [facility]2022-12-17 10:57:00 Test Item Value Reference Range Interpretation Comments eGFR (test code = eGFR) 55 [place] 930682-12-17 10:57:00 Test Item Value Reference Range Interpretation Comments Glucose Lvl (test code = Glucose Lvl) 95 70-99 [place] 930682-12-17 10:57:00 Test Item Value Reference Range Interpretation Comments BUN (test code = BUN) 06-01 [facility]LoclwmiOLWDJJQME4340-51-29 10:57:00 Test Item Value Reference Range Interpretation Comments Creatinine Lvl (test code = Creatinine 1.02 0.50-1.40 Lvl) [facility] HospitalRmridgjMYVBBMIUQ5034-26-76 10:57:00 Test Item Value Reference Range Interpretation Comments Sodium Lvl (test code = Sodium Lvl) 142 135-145 [place] 930682-12-17 10:57:00 Test Item Value Reference Range Interpretation Comments Potassium Lvl (test code = Potassium 4.1 3.5-5.1 Lvl) [place] 930682-12-17 10:57:00 Test Item Value Reference Range Interpretation Comments Chloride Lvl (test code = Chloride Lvl) 109 95-109 [place] 930682-12-17 10:57:00 Test Item Value Reference Range Interpretation Comments CO2 (test code = CO2) - [facility] HospitalYwxzczdMEYJQTNCN0766-44-21 10:57:00 Test Item Value Reference Range Interpretation Comments Calcium Lvl (test code = Calcium Lvl) 8.5 8.5-10.5 [place] 930682-12-17 10:57:00 Test Item Value Reference Range Interpretation Comments AGAP (test code = AGAP) 9.1 10.0-20.0 [place] 930682-12-17 10:57:00 Test Item Value Reference Range Interpretation Comments eGFR (test code = eGFR) 55 [facility]PzjxfhjUUALBIWEUX7456-87-63 10:57:00 Test Item Value Reference Range Interpretation Comments Segs (test code = Segs) 67.0 45.0-75.0 [place] 519362-12-17 10:57:00 Test Item Value Reference Range Interpretation Comments Lymphocytes (test code = Lymphocytes) 21.5 20.0-40.0 [place] 519362-12-17 10:57:00 Test Item Value Reference Range Interpretation Comments Monocytes (test code = Monocytes) 9.0 2.0-12.0 [place] 519362-12-17 10:57:00 Test Item Value Reference Range Interpretation Comments Eosinophils (test code = 1.8 See_Comment [A utomated message] The Eosinophils) system which ge nerated this result tra nsmitted reference range : <=4.0. The reference r patria was not used to int erpret this result as normal/abnormal . [facility]QzerqrjVZELUFVRUW0902-75-06 10:57:00 Test Item Value Reference Range Interpretation Comments Basophils (test code = 0.7 See_Comment [Aut omated message] The Basophils) system which ge nerated this result tra nsmitted reference range : <=1.0. The reference r patria was not used to int erpret this result as normal/abnormal . [place] 519362-12-17 10:57:00 Test Item Value Reference Range Interpretation Comments Neutrophils # (test code = Neutrophils 5.7 1.5-8.1 #) [place] [address]-12-17 10:57:00 Test Item Value Reference Range Interpretation Comments Lymphocytes # (test code = Lymphocytes 1.8 1.0-5.5 #) [place] [address]-12-17 10:57:00 Test Item Value Reference Range Interpretation Comments Monocytes # (test code 0.8 See_Comment [Aut omated message] The = Monocytes #) system which generated this result tra nsmitted reference range : <=0.8. The reference r patria was not used to int erpret this result as normal/abnormal . [place] 519362-12-17 10:57:00 Test Item Value Reference Range Interpretation Comments Eosinophils # (test code 0.2 See_Comment [A utomated message] The = Eosinophils #) system whic h generated this result tra nsmitted reference range : <=0.5. The reference r patria was not used to int erpret this result as normal/abnormal . [facility]UukdqrmHLDRLUYBEI8198-56-48 10:57:00 Test Item Value Reference Range Interpretation Comments Basophils # (test code 0.1 See_Comment [Aut omated message] The = Basophils #) system which generated this result tra nsmitted reference range : <=0.2. The reference r patria was not used to int erpret this result as normal/abnormal . [place] 519362-12-17 10:57:00 Test Item Value Reference Range Interpretation Comments Segs (test code = Segs) 67.0 45.0-75.0 [place] 519362-12-17 10:57:00 Test Item Value Reference Range Interpretation Comments Lymphocytes (test code = Lymphocytes) 21.5 20.0-40.0 [place] 519362-12-17 10:57:00 Test Item Value Reference Range Interpretation Comments Monocytes (test code = Monocytes) 9.0 2.0-12.0 [place] 519362-12-17 10:57:00 Test Item Value Reference Range Interpretation Comments Eosinophils (test code = 1.8 See_Comment [A utomated message] The Eosinophils) system which ge nerated this result tra nsmitted reference range : <=4.0. The reference r patria was not used to int erpret this result as normal/abnormal . [place] [address]-12-17 10:57:00 Test Item Value Reference Range Interpretation Comments Basophils (test code = 0.7 See_Comment [Aut omated message] The Basophils) system which ge nerated this result tra nsmitted reference range : <=1.0. The reference r patria was not used to int erpret this result as normal/abnormal . [place] 519362-12-17 10:57:00 Test Item Value Reference Range Interpretation Comments Neutrophils # (test code = Neutrophils 5.7 1.5-8.1 #) [place] [address]-12-17 10:57:00 Test Item Value Reference Range Interpretation Comments Lymphocytes # (test code = Lymphocytes 1.8 1.0-5.5 #) [place] [address]-12-17 10:57:00 Test Item Value Reference Range Interpretation Comments Monocytes # (test code 0.8 See_Comment [Aut omated message] The = Monocytes #) system which generated this result tra nsmitted reference range : <=0.8. The reference r patria was not used to int erpret this result as normal/abnormal . [place] [address]-12-17 10:57:00 Test Item Value Reference Range Interpretation Comments Eosinophils # (test code 0.2 See_Comment [A utomated message] The = Eosinophils #) system whic h generated this result tra nsmitted reference range : <=0.5. The reference r patrai was not used to int erpret this result as normal/abnormal . [place] [address]-12-17 10:57:00 Test Item Value Reference Range Interpretation Comments Basophils # (test code 0.1 See_Comment [Aut omated message] The = Basophils #) system which generated this result tra nsmitted reference range : <=0.2. The reference r patria was not used to int erpret this result as normal/abnormal . [place] [address]-12-17 10:57:00 Test Item Value Reference Range Interpretation Comments WBC (test code = WBC) 8.6 3.7-10.4 [place] [address]-12-17 10:57:00 Test Item Value Reference Range Interpretation Comments RBC (test code = RBC) 2.52 4.20-5.40 [place] [address]-12-17 10:57:00 Test Item Value Reference Range Interpretation Comments Hgb (test code = Hgb) 8.2 12.0-16.0 [place] [address]-12-17 10:57:00 Test Item Value Reference Range Interpretation Comments Hct (test code = Hct) 24.5 36.0-48.0 [place] [address]-12-17 10:57:00 Test Item Value Reference Range Interpretation Comments MCV (test code = MCV) 97.2 80.0-98.[address]12-17 10:57:00 Test Item Value Reference Range Interpretation Comments MCH (test code = MCH) 32.6 pg 27.0-31.0 [place] [address]-12-17 10:57:00 Test Item Value Reference Range Interpretation Comments MCHC (test code = MCHC) 33.5 32.0-36.0 [place] [address]-12-17 10:57:00 Test Item Value Reference Range Interpretation Comments RDW (test code = RDW) 18.7 11.5-14.[address]12-17 10:57:00 Test Item Value Reference Range Interpretation Comments Platelet (test code = Platelet) 233 133-450 [address]12-17 10:57:00 Test Item Value Reference Range Interpretation Comments MPV (test code = MPV) 7.0 7.4-10.4 [place] 542562-12-17 10:57:00 Test Item Value Reference Range Interpretation Comments Glucose Lvl (test code = Glucose Lvl) 95 70-99 [place] 542562-12-17 10:57:00 Test Item Value Reference Range Interpretation Comments BUN (test code = BUN) 28 7-22 [place] 542562-12-17 10:57:00 Test Item Value Reference Range Interpretation Comments Creatinine Lvl (test code = Creatinine 1.02 0.50-1.40 Lvl) [place] 542562-12-17 10:57:00 Test Item Value Reference Range Interpretation Comments Sodium Lvl (test code = Sodium Lvl) 142 135-145 [place] 542562-12-17 10:57:00 Test Item Value Reference Range Interpretation Comments Potassium Lvl (test code = Potassium 4.1 3.5-5.1 Lvl) [place] 542562-12-17 10:57:00 Test Item Value Reference Range Interpretation Comments Chloride Lvl (test code = Chloride Lvl) 109 95-109 [place] 542562-12-17 10:57:00 Test Item Value Reference Range Interpretation Comments CO2 (test code = CO2) 28 24-32 [place] 542562-12-17 10:57:00 Test Item Value Reference Range Interpretation Comments Calcium Lvl (test code = Calcium Lvl) 8.5 8.5-10.5 [facility]2022-12-17 10:57:00 Test Item Value Reference Range Interpretation Comments AGAP (test code = AGAP) 9.1 10.0-20.0 [facility]2022-12-17 10:57:00 Test Item Value Reference Range Interpretation Comments eGFR (test code = eGFR) 55 [place] 930682-12-17 10:57:00 Test Item Value Reference Range Interpretation Comments Glucose Lvl (test code = Glucose Lvl) 95 70-99 [place] 930682-12-17 10:57:00 Test Item Value Reference Range Interpretation Comments BUN (test code = BUN) 28 7-22 [facility]KonelruODHBJMJNX7712-46-88 10:57:00 Test Item Value Reference Range Interpretation Comments Creatinine Lvl (test code = Creatinine 1.02 0.50-1.40 Lvl) [facility] HospitalXlcphbbIXMAFAOQO7309-47-24 10:57:00 Test Item Value Reference Range Interpretation Comments Sodium Lvl (test code = Sodium Lvl) 142 135-145 [facility] HospitalGwhosbnGCIISKQSL9297-53-98 10:57:00 Test Item Value Reference Range Interpretation Comments Potassium Lvl (test code = Potassium 4.1 3.5-5.1 Lvl) [facility] HospitalFuqyxjtQXYVFUNYU2017-19-76 10:57:00 Test Item Value Reference Range Interpretation Comments Chloride Lvl (test code = Chloride Lvl) 109 95-109 [facility] HospitalDdddyyiNIHATTRVC2348-16-53 10:57:00 Test Item Value Reference Range Interpretation Comments CO2 (test code = CO2) 28 24-32 [facility] HospitalRbrnulpYDCEZHXXM8137-98-13 10:57:00 Test Item Value Reference Range Interpretation Comments Calcium Lvl (test code = Calcium Lvl) 8.5 8.5-10.5 [facility] HospitalDpnqblmDKPKKONYH6629-77-11 10:57:00 Test Item Value Reference Range Interpretation Comments AGAP (test code = AGAP) 9.1 10.0-20.0 [facility] HospitalOsgqeeiWVZAIOSOP9221-37-63 10:57:00 Test Item Value Reference Range Interpretation Comments eGFR (test code = eGFR) 55 [facility]ag[facility]qnPYJLQNJZAQ3471-42-23 10:57:00 Test Item Value Reference Range Interpretation Comments Segs (test code = Segs) 67.0 45.0-75.0 [place] [address]-12-17 10:57:00 Test Item Value Reference Range Interpretation Comments Lymphocytes (test code = Lymphocytes) 21.5 20.0-40.0 [place] [address]-12-17 10:57:00 Test Item Value Reference Range Interpretation Comments Monocytes (test code = Monocytes) 9.0 2.0-12.0 [place] [address]-12-17 10:57:00 Test Item Value Reference Range Interpretation Comments Eosinophils (test code = 1.8 See_Comment [A utomated message] The Eosinophils) system which ge nerated this result tra nsmitted reference range : <=4.0. The reference r patria was not used to int erpret this result as normal/abnormal . [address]12-17 10:57:00 Test Item Value Reference Range Interpretation Comments Basophils (test code = 0.7 See_Comment [Aut omated message] The Basophils) system which ge nerated this result tra nsmitted reference range : <=1.0. The reference r patria was not used to int erpret this result as normal/abnormal . [place] [address]-12-17 10:57:00 Test Item Value Reference Range Interpretation Comments Neutrophils # (test code = Neutrophils 5.7 1.5-8.1 #) [address]12-17 10:57:00 Test Item Value Reference Range Interpretation Comments Lymphocytes # (test code = Lymphocytes 1.8 1.0-5.5 #) [place] [address]-12-17 10:57:00 Test Item Value Reference Range Interpretation Comments Monocytes # (test code 0.8 See_Comment [Aut omated message] The = Monocytes #) system which generated this result tra nsmitted reference range : <=0.8. The reference r patria was not used to int erpret this result as normal/abnormal . [place] [address]-12-17 10:57:00 Test Item Value Reference Range Interpretation Comments Eosinophils # (test code 0.2 See_Comment [A utomated message] The = Eosinophils #) system wh h generated this result tra nsmitted reference range : <=0.5. The reference r patria was not used to int erpret this result as normal/abnormal . [place] 519362-12-17 10:57:00 Test Item Value Reference Range Interpretation Comments Basophils # (test code 0.1 See_Comment [Aut omated message] The = Basophils #) system which generated this result tra nsmitted reference range : <=0.2. The reference r patria was not used to int erpret this result as normal/abnormal . [facility] CenterOslumooSOIKPFNVOY9478-24-56 10:57:00 Test Item Value Reference Range Interpretation Comments Segs (test code = Segs) 67.0 45.0-75.0 [place] 519362-12-17 10:57:00 Test Item Value Reference Range Interpretation Comments Lymphocytes (test code = Lymphocytes) 21.5 20.0-40.0 [place]362-12-17 10:57:00 Test Item Value Reference Range Interpretation Comments Monocytes (test code = Monocytes) 9.0 2.0-12.0 [place]362-12-17 10:57:00 Test Item Value Reference Range Interpretation Comments Eosinophils (test code = 1.8 See_Comment [A utomated message] The Eosinophils) system which ge nerated this result tra nsmitted reference range : <=4.0. The reference r patria was not used to int erpret this result as normal/abnormal . [facility] CenterArhxnfgKGLEFZJENA1487-53-73 10:57:00 Test Item Value Reference Range Interpretation Comments Basophils (test code = 0.7 See_Comment [Aut omated message] The Basophils) system which ge nerated this result tra nsmitted reference range : <=1.0. The reference r patria was not used to int erpret this result as normal/abnormal . [facility] CenterHloojegCBDZVQBHLZ6004-28-26 10:57:00 Test Item Value Reference Range Interpretation Comments Neutrophils # (test code = Neutrophils 5.7 1.5-8.1 #) [place] 519362-12-17 10:57:00 Test Item Value Reference Range Interpretation Comments Lymphocytes # (test code = Lymphocytes 1.8 1.0-5.5 #) [place] 519362-12-17 10:57:00 Test Item Value Reference Range Interpretation Comments Monocytes # (test code 0.8 See_Comment [Aut omated message] The = Monocytes #) system which generated this result tra nsmitted reference range : <=0.8. The reference r patria was not used to int erpret this result as normal/abnormal . [facility] CenterFqzkuqwXLBYGEUKLF7978-30-55 10:57:00 Test Item Value Reference Range Interpretation Comments Eosinophils # (test code 0.2 See_Comment [A utomated message] The = Eosinophils #) system whic h generated this result tra nsmitted reference range : <=0.5. The reference r patria was not used to int erpret this result as normal/abnormal . [facility] CenterPihcoofGKPFCBLECR4593-85-15 10:57:00 Test Item Value Reference Range Interpretation Comments Basophils # (test code 0.1 See_Comment [Aut omated message] The = Basophils #) system which generated this result tra nsmitted reference range : <=0.2. The reference r patria was not used to int erpret this result as normal/abnormal . [facility] CenterWcbmksqMILOMGIPRL7660-59-70 10:57:00 Test Item Value Reference Range Interpretation Comments WBC (test code = WBC) 8.6 3.7-10.4 [place] 519362-12-17 10:57:00 Test Item Value Reference Range Interpretation Comments RBC (test code = RBC) 2.52 4.20-5.40 [facility] CenterNwyobvaOCGICRCSWN1601-85-17 10:57:00 Test Item Value Reference Range Interpretation Comments Hgb (test code = Hgb) 8.2 12.0-16.0 [place] 519362-12-17 10:57:00 Test Item Value Reference Range Interpretation Comments Hct (test code = Hct) 24.5 36.0-48.0 [place]362-12-17 10:57:00 Test Item Value Reference Range Interpretation Comments MCV (test code = MCV) 97.2 80.0-98.0 [place]362-12-17 10:57:00 Test Item Value Reference Range Interpretation Comments MCH (test code = MCH) 32.6 pg 27.0-31.0 [place] 519362-12-17 10:57:00 Test Item Value Reference Range Interpretation Comments MCHC (test code = MCHC) 33.5 32.0-36.0 [place] 519362-12-17 10:57:00 Test Item Value Reference Range Interpretation Comments RDW (test code = RDW) 18.7 11.5-14.5 [place] [address]-12-17 10:57:00 Test Item Value Reference Range Interpretation Comments Platelet (test code = Platelet) 233 133-450 [place] 519362-12-17 10:57:00 Test Item Value Reference Range Interpretation Comments MPV (test code = MPV) 7.0 7.4-10.4 [facility]2022-12-17 10:57:00 Test Item Value Reference Range Interpretation Comments Glucose Lvl (test code = Glucose Lvl) 95 70-99 [place] 542562-12-17 10:57:00 Test Item Value Reference Range Interpretation Comments BUN (test code = BUN) 28 7-22 [place] 542562-12-17 10:57:00 Test Item Value Reference Range Interpretation Comments Creatinine Lvl (test code = Creatinine 1.02 0.50-1.40 Lvl) [place] 542562-12-17 10:57:00 Test Item Value Reference Range Interpretation Comments Sodium Lvl (test code = Sodium Lvl) 142 135-145 [place] 542562-12-17 10:57:00 Test Item Value Reference Range Interpretation Comments Potassium Lvl (test code = Potassium 4.1 3.5-5.1 Lvl) [place] 542562-12-17 10:57:00 Test Item Value Reference Range Interpretation Comments Chloride Lvl (test code = Chloride Lvl) 109 95-109 [place] 542562-12-17 10:57:00 Test Item Value Reference Range Interpretation Comments CO2 (test code = CO2) 28 24-32 [place] 542562-12-17 10:57:00 Test Item Value Reference Range Interpretation Comments Calcium Lvl (test code = Calcium Lvl) 8.5 8.5-10.5 [place] 542562-12-17 10:57:00 Test Item Value Reference Range Interpretation Comments AGAP (test code = AGAP) 9.1 10.0-20.0 [place] 542562-12-17 10:57:00 Test Item Value Reference Range Interpretation Comments eGFR (test code = eGFR) 55 [place] 930682-12-17 10:57:00 Test Item Value Reference Range Interpretation Comments Glucose Lvl (test code = Glucose Lvl) 95 70-99 [place] 930682-12-17 10:57:00 Test Item Value Reference Range Interpretation Comments BUN (test code = BUN) 28 7-22 [facility] HospitalPhckijdBIXWAKKIZ2054-93-78 10:57:00 Test Item Value Reference Range Interpretation Comments Creatinine Lvl (test code = Creatinine 1.02 0.50-1.40 Lvl) [facility] HospitalRjrpihqLYMPOEYNI4412-40-87 10:57:00 Test Item Value Reference Range Interpretation Comments Sodium Lvl (test code = Sodium Lvl) 142 135-145 [facility] HospitalIjoznmoIMKMKUZFZ5724-04-89 10:57:00 Test Item Value Reference Range Interpretation Comments Potassium Lvl (test code = Potassium 4.1 3.5-5.1 Lvl) [facility] HospitalZqdtifnEAXPHIOGC2786-67-34 10:57:00 Test Item Value Reference Range Interpretation Comments Chloride Lvl (test code = Chloride Lvl) 109 95-109 [facility] HospitalOicnztfSFPYDKRZP8325-32-61 10:57:00 Test Item Value Reference Range Interpretation Comments CO2 (test code = CO2) 28 24-32 [facility] HospitalIiqggjnZLCIWDXBR6737-23-58 10:57:00 Test Item Value Reference Range Interpretation Comments Calcium Lvl (test code = Calcium Lvl) 8.5 8.5-10.5 [facility] HospitalQzrakntDEEKJTHXE2617-60-36 10:57:00 Test Item Value Reference Range Interpretation Comments AGAP (test code = AGAP) 9.1 10.0-20.0 [facility] HospitalBxexcbnRMHFRKPEL2573-27-35 10:57:00 Test Item Value Reference Range Interpretation Comments eGFR (test code = eGFR) 55 [facility] CenterEaxbdeeNKMSKUJYTU7954-20-46 10:57:00 Test Item Value Reference Range Interpretation Comments Segs (test code = Segs) 67.0 45.0-75.0 [place] 519362-12-17 10:57:00 Test Item Value Reference Range Interpretation Comments Lymphocytes (test code = Lymphocytes) 21.5 20.0-40.0 [place] 519362-12-17 10:57:00 Test Item Value Reference Range Interpretation Comments Monocytes (test code = Monocytes) 9.0 2.0-12.0 [place] 519362-12-17 10:57:00 Test Item Value Reference Range Interpretation Comments Eosinophils (test code = 1.8 See_Comment [A utomated message] The Eosinophils) system which ge nerated this result tra nsmitted reference range : <=4.0. The reference r patria was not used to int erpret this result as normal/abnormal . [place] 519362-12-17 10:57:00 Test Item Value Reference Range Interpretation Comments Basophils (test code = 0.7 See_Comment [Aut omated message] The Basophils) system which ge nerated this result tra nsmitted reference range : <=1.0. The reference r patria was not used to int erpret this result as normal/abnormal . [place] 519362-12-17 10:57:00 Test Item Value Reference Range Interpretation Comments Neutrophils # (test code = Neutrophils 5.7 1.5-8.1 #) [place] 519362-12-17 10:57:00 Test Item Value Reference Range Interpretation Comments Lymphocytes # (test code = Lymphocytes 1.8 1.0-5.5 #) [place] [address]-12-17 10:57:00 Test Item Value Reference Range Interpretation Comments Monocytes # (test code 0.8 See_Comment [Aut omated message] The = Monocytes #) system which generated this result tra nsmitted reference range : <=0.8. The reference r patria was not used to int erpret this result as normal/abnormal . [facility] CenterGudbsfrFDNAHZNGMA7470-98-11 10:57:00 Test Item Value Reference Range Interpretation Comments Eosinophils # (test code 0.2 See_Comment [A utomated message] The = Eosinophils #) system whic h generated this result tra nsmitted reference range : <=0.5. The reference r patria was not used to int erpret this result as normal/abnormal . [place] 519362-12-17 10:57:00 Test Item Value Reference Range Interpretation Comments Basophils # (test code 0.1 See_Comment [Aut omated message] The = Basophils #) system which generated this result tra nsmitted reference range : <=0.2. The reference r patria was not used to int erpret this result as normal/abnormal . [place] [address]-12-17 10:57:00 Test Item Value Reference Range Interpretation Comments Segs (test code = Segs) 67.0 45.0-75.0 [place] [address]-12-17 10:57:00 Test Item Value Reference Range Interpretation Comments Lymphocytes (test code = Lymphocytes) 21.5 20.0-40.0 [place] [address]-12-17 10:57:00 Test Item Value Reference Range Interpretation Comments Monocytes (test code = Monocytes) 9.0 2.0-12.0 [address]12-17 10:57:00 Test Item Value Reference Range Interpretation Comments Eosinophils (test code = 1.8 See_Comment [A utomated message] The Eosinophils) system which ge nerated this result tra nsmitted reference range : <=4.0. The reference r patria was not used to int erpret this result as normal/abnormal . [address]12-17 10:57:00 Test Item Value Reference Range Interpretation Comments Basophils (test code = 0.7 See_Comment [Aut omated message] The Basophils) system which ge nerated this result tra nsmitted reference range : <=1.0. The reference r patria was not used to int erpret this result as normal/abnormal . [address]12-17 10:57:00 Test Item Value Reference Range Interpretation Comments Neutrophils # (test code = Neutrophils 5.7 1.5-8.1 #) [address]12-17 10:57:00 Test Item Value Reference Range Interpretation Comments Lymphocytes # (test code = Lymphocytes 1.8 1.0-5.5 #) [address]12-17 10:57:00 Test Item Value Reference Range Interpretation Comments Monocytes # (test code 0.8 See_Comment [Aut omated message] The = Monocytes #) system which generated this result tra nsmitted reference range : <=0.8. The reference r patria was not used to int erpret this result as normal/abnormal . [place] [address]-12-17 10:57:00 Test Item Value Reference Range Interpretation Comments Eosinophils # (test code 0.2 See_Comment [A utomated message] The = Eosinophils #) system whic h generated this result tra nsmitted reference range : <=0.5. The reference r patria was not used to int erpret this result as normal/abnormal . [facility]WizxglfBQROKJQFMU4627-12-02 10:57:00 Test Item Value Reference Range Interpretation Comments Basophils # (test code 0.1 See_Comment [Aut omated message] The = Basophils #) system which generated this result tra nsmitted reference range : <=0.2. The reference r patria was not used to int erpret this result as normal/abnormal . [facility] CenterGhquoqzSJJAKTJWTZ7951-10-29 10:57:00 Test Item Value Reference Range Interpretation Comments WBC (test code = WBC) 8.6 3.7-10.4 [facility] CenterVqtkubkJSKLSJOFJG2336-35-50 10:57:00 Test Item Value Reference Range Interpretation Comments RBC (test code = RBC) 2.52 4.20-5.40 [facility] CenterEtcskuiRPCKGCOSUE8548-97-06 10:57:00 Test Item Value Reference Range Interpretation Comments Hgb (test code = Hgb) 8.2 12.0-16.0 [facility] CenterGlcrvolGZUFRXZUPH3801-22-50 10:57:00 Test Item Value Reference Range Interpretation Comments Hct (test code = Hct) 24.5 36.0-48.0 [facility] CenterRqzqzoeAFOWFFQYYG5955-17-84 10:57:00 Test Item Value Reference Range Interpretation Comments MCV (test code = MCV) 97.2 80.0-98.0 [facility] CenterKmnttlqDETYVFIPFG8452-65-62 10:57:00 Test Item Value Reference Range Interpretation Comments MCH (test code = MCH) 32.6 pg 27.0-31.0 [facility] CenterGkvjicqHHUIYZRYVT7851-58-49 10:57:00 Test Item Value Reference Range Interpretation Comments MCHC (test code = MCHC) 33.5 32.0-36.0 [facility] CenterAmsqvhcXHXIDKGHFL3275-24-97 10:57:00 Test Item Value Reference Range Interpretation Comments RDW (test code = RDW) 18.7 11.5-14.5 [place] 519362-12-17 10:57:00 Test Item Value Reference Range Interpretation Comments Platelet (test code = Platelet) 233 133-450 [facility] CenterTuozowlCUFGDRPGSK5952-00-36 10:57:00 Test Item Value Reference Range Interpretation Comments MPV (test code = MPV) 7.0 7.4-10.4 [place] 542562-12-17 10:57:00 Test Item Value Reference Range Interpretation Comments Glucose Lvl (test code = Glucose Lvl) 95 70-99 [place] 542562-12-17 10:57:00 Test Item Value Reference Range Interpretation Comments BUN (test code = BUN) 28 06-01 [place] 542562-12-17 10:57:00 Test Item Value Reference Range Interpretation Comments Creatinine Lvl (test code = Creatinine 1.02 0.50-1.40 Lvl) [facility]2022-12-17 10:57:00 Test Item Value Reference Range Interpretation Comments Sodium Lvl (test code = Sodium Lvl) 142 135-145 [place] 542562-12-17 10:57:00 Test Item Value Reference Range Interpretation Comments Potassium Lvl (test code = Potassium 4.1 3.5-5.1 Lvl) [place] 542562-12-17 10:57:00 Test Item Value Reference Range Interpretation Comments Chloride Lvl (test code = Chloride Lvl) 109 95-109 [place] 542562-12-17 10:57:00 Test Item Value Reference Range Interpretation Comments CO2 (test code = CO2) 28 24-32 [place] 542562-12-17 10:57:00 Test Item Value Reference Range Interpretation Comments Calcium Lvl (test code = Calcium Lvl) 8.5 8.5-10.5 [place] 542562-12-17 10:57:00 Test Item Value Reference Range Interpretation Comments AGAP (test code = AGAP) 9.1 10.0-20.0 [place] 542562-12-17 10:57:00 Test Item Value Reference Range Interpretation Comments eGFR (test code = eGFR) 55 [facility] HospitalDdlggtaNPVMJUHQS8967-33-24 10:57:00 Test Item Value Reference Range Interpretation Comments Glucose Lvl (test code = Glucose Lvl) 95 70-99 [place] 930682-12-17 10:57:00 Test Item Value Reference Range Interpretation Comments BUN (test code = BUN) 28 - [place] 930682-12-17 10:57:00 Test Item Value Reference Range Interpretation Comments Creatinine Lvl (test code = Creatinine 1.02 0.50-1.40 Lvl) [facility] HospitalQltnnnvHDBVAVDUF4164-05-47 10:57:00 Test Item Value Reference Range Interpretation Comments Sodium Lvl (test code = Sodium Lvl) 142 135-145 [facility] HospitalXcuzosxUYCQOTBUY8982-12-05 10:57:00 Test Item Value Reference Range Interpretation Comments Potassium Lvl (test code = Potassium 4.1 3.5-5.1 Lvl) [facility] HospitalGrjbwbfSUBQZSJOV4008-75-65 10:57:00 Test Item Value Reference Range Interpretation Comments Chloride Lvl (test code = Chloride Lvl) 109 95-109 [facility] HospitalOrddlsdAFRJSFTRF2435-23-75 10:57:00 Test Item Value Reference Range Interpretation Comments CO2 (test code = CO2) 28 24-32 [facility] HospitalIrboinfWMCUSKWLO7579-63-53 10:57:00 Test Item Value Reference Range Interpretation Comments Calcium Lvl (test code = Calcium Lvl) 8.5 8.5-10.5 [facility] HospitalBacebntHYALNKBOX2312-81-23 10:57:00 Test Item Value Reference Range Interpretation Comments AGAP (test code = AGAP) 9.1 10.0-20.0 [facility] HospitalOqmytgwATAZNNCPS5793-89-06 10:57:00 Test Item Value Reference Range Interpretation Comments eGFR (test code = eGFR) 55 [facility] CenterEnhywkmBGUAHBLQTZ6565-14-73 10:57:00 Test Item Value Reference Range Interpretation Comments Segs (test code = Segs) 67.0 45.0-75.0 [facility] CenterIrmupbqFBWRSNAGCK0269-37-59 10:57:00 Test Item Value Reference Range Interpretation Comments Lymphocytes (test code = Lymphocytes) 21.5 20.0-40.0 [place] 519362-12-17 10:57:00 Test Item Value Reference Range Interpretation Comments Monocytes (test code = Monocytes) 9.0 2.0-12.0 [facility] CenterTzkuficMGEJBDDIQR7148-55-65 10:57:00 Test Item Value Reference Range Interpretation Comments Eosinophils (test code = 1.8 See_Comment [A utomated message] The Eosinophils) system which ge nerated this result tra nsmitted reference range : <=4.0. The reference r patria was not used to int erpret this result as normal/abnormal . [place] [address]-12-17 10:57:00 Test Item Value Reference Range Interpretation Comments Basophils (test code = 0.7 See_Comment [Aut omated message] The Basophils) system which ge nerated this result tra nsmitted reference range : <=1.0. The reference r patria was not used to int erpret this result as normal/abnormal . [place] 519362-12-17 10:57:00 Test Item Value Reference Range Interpretation Comments Neutrophils # (test code = Neutrophils 5.7 1.5-8.1 #) [facility] CenterUblhsmfHWVJXMBRSU6926-50-25 10:57:00 Test Item Value Reference Range Interpretation Comments Lymphocytes # (test code = Lymphocytes 1.8 1.0-5.5 #) [place] [address]-12-17 10:57:00 Test Item Value Reference Range Interpretation Comments Monocytes # (test code 0.8 See_Comment [Aut omated message] The = Monocytes #) system which generated this result tra nsmitted reference range : <=0.8. The reference r patria was not used to int erpret this result as normal/abnormal . [facility]RXFSYBGTZH6637[facility] 10:57:00 Test Item Value Reference Range Interpretation Comments Eosinophils # (test code 0.2 See_Comment [A utomated message] The = Eosinophils #) system whic h generated this result tra nsmitted reference range : <=0.5. The reference r patria was not used to int erpret this result as normal/abnormal . [facility]UftxawgXOBNCBWXWS4098-08-67 10:57:00 Test Item Value Reference Range Interpretation Comments Basophils # (test code 0.1 See_Comment [Aut omated message] The = Basophils #) system which generated this result tra nsmitted reference range : <=0.2. The reference r patria was not used to int erpret this result as normal/abnormal . [facility]NpfciyhYASOLKVQSU7764-36-00 10:57:00 Test Item Value Reference Range Interpretation Comments Segs (test code = Segs) 67.0 45.0-75.0 [place] [address]-12-17 10:57:00 Test Item Value Reference Range Interpretation Comments Lymphocytes (test code = Lymphocytes) 21.5 20.0-40.0 [place] [address]-12-17 10:57:00 Test Item Value Reference Range Interpretation Comments Monocytes (test code = Monocytes) 9.0 2.0-12.0 [place] 519362-12-17 10:57:00 Test Item Value Reference Range Interpretation Comments Eosinophils (test code = 1.8 See_Comment [A utomated message] The Eosinophils) system which ge nerated this result tra nsmitted reference range : <=4.0. The reference r patria was not used to int erpret this result as normal/abnormal . [place] [address]-12-17 10:57:00 Test Item Value Reference Range Interpretation Comments Basophils (test code = 0.7 See_Comment [Aut omated message] The Basophils) system which ge nerated this result tra nsmitted reference range : <=1.0. The reference r patria was not used to int erpret this result as normal/abnormal . [place] 519362-12-17 10:57:00 Test Item Value Reference Range Interpretation Comments Neutrophils # (test code = Neutrophils 5.7 1.5-8.1 #) [place] [address]-12-17 10:57:00 Test Item Value Reference Range Interpretation Comments Lymphocytes # (test code = Lymphocytes 1.8 1.0-5.5 #) [place] [address]-12-17 10:57:00 Test Item Value Reference Range Interpretation Comments Monocytes # (test code 0.8 See_Comment [Aut omated message] The = Monocytes #) system which generated this result tra nsmitted reference range : <=0.8. The reference r patria was not used to int erpret this result as normal/abnormal . [place] [address]-12-17 10:57:00 Test Item Value Reference Range Interpretation Comments Eosinophils # (test code 0.2 See_Comment [A utomated message] The = Eosinophils #) system whic h generated this result tra nsmitted reference range : <=0.5. The reference r patria was not used to int erpret this result as normal/abnormal . [place] [address]-12-17 10:57:00 Test Item Value Reference Range Interpretation Comments Basophils # (test code 0.1 See_Comment [Aut omated message] The = Basophils #) system which generated this result tra nsmitted reference range : <=0.2. The reference r patria was not used to int erpret this result as normal/abnormal . [place] 519362-12-17 10:57:00 Test Item Value Reference Range Interpretation Comments WBC (test code = WBC) 8.6 3.7-10.4 [place] 519362-12-17 10:57:00 Test Item Value Reference Range Interpretation Comments RBC (test code = RBC) 2.52 4.20-5.40 [place] 519362-12-17 10:57:00 Test Item Value Reference Range Interpretation Comments Hgb (test code = Hgb) 8.2 12.0-16.0 [place] [address]-12-17 10:57:00 Test Item Value Reference Range Interpretation Comments Hct (test code = Hct) 24.5 36.0-48.0 [place] [address]-12-17 10:57:00 Test Item Value Reference Range Interpretation Comments MCV (test code = MCV) 97.2 80.0-98.0 [place] 519362-12-17 10:57:00 Test Item Value Reference Range Interpretation Comments MCH (test code = MCH) 32.6 pg 27.0-31.0 [place] 519362-12-17 10:57:00 Test Item Value Reference Range Interpretation Comments MCHC (test code = MCHC) 33.5 32.0-36.0 [place] 519362-12-17 10:57:00 Test Item Value Reference Range Interpretation Comments RDW (test code = RDW) 18.7 11.5-14.5 [place] 519362-12-17 10:57:00 Test Item Value Reference Range Interpretation Comments Platelet (test code = Platelet) 233 133-450 [place] 519362-12-17 10:57:00 Test Item Value Reference Range Interpretation Comments MPV (test code = MPV) 7.0 7.4-10.4 [facility]2022-12-17 10:57:00 Test Item Value Reference Range Interpretation Comments Glucose Lvl (test code = Glucose Lvl) 95 70-99 [facility]2022-12-17 10:57:00 Test Item Value Reference Range Interpretation Comments BUN (test code = BUN) 28 7-22 [place] 542562-12-17 10:57:00 Test Item Value Reference Range Interpretation Comments Creatinine Lvl (test code = Creatinine 1.02 0.50-1.40 Lvl) [place] 542562-12-17 10:57:00 Test Item Value Reference Range Interpretation Comments Sodium Lvl (test code = Sodium Lvl) 142 135-145 [place] 542562-12-17 10:57:00 Test Item Value Reference Range Interpretation Comments Potassium Lvl (test code = Potassium 4.1 3.5-5.1 Lvl) [place] 542562-12-17 10:57:00 Test Item Value Reference Range Interpretation Comments Chloride Lvl (test code = Chloride Lvl) 109 95-109 [place] 542562-12-17 10:57:00 Test Item Value Reference Range Interpretation Comments CO2 (test code = CO2) 28 24-32 [place] 542562-12-17 10:57:00 Test Item Value Reference Range Interpretation Comments Calcium Lvl (test code = Calcium Lvl) 8.5 8.5-10.5 [place] 542562-12-17 10:57:00 Test Item Value Reference Range Interpretation Comments AGAP (test code = AGAP) 9.1 10.0-20.0 [place] 542562-12-17 10:57:00 Test Item Value Reference Range Interpretation Comments eGFR (test code = eGFR) 55 [place] 930682-12-17 10:57:00 Test Item Value Reference Range Interpretation Comments Glucose Lvl (test code = Glucose Lvl) 95 70-99 [place] 930682-12-17 10:57:00 Test Item Value Reference Range Interpretation Comments BUN (test code = BUN) 28 - [place] 930682-12-17 10:57:00 Test Item Value Reference Range Interpretation Comments Creatinine Lvl (test code = Creatinine 1.02 0.50-1.40 Lvl) [place] 930682-12-17 10:57:00 Test Item Value Reference Range Interpretation Comments Sodium Lvl (test code = Sodium Lvl) 142 135-145 [place] 930682-12-17 10:57:00 Test Item Value Reference Range Interpretation Comments Potassium Lvl (test code = Potassium 4.1 3.5-5.1 Lvl) [facility]EL[facility]50 10:57:00 Test Item Value Reference Range Interpretation Comments Chloride Lvl (test code = Chloride Lvl) 109 95-109 [place] 930682-12-17 10:57:00 Test Item Value Reference Range Interpretation Comments CO2 (test code = CO2) 28 24-32 [place] 930682-12-17 10:57:00 Test Item Value Reference Range Interpretation Comments Calcium Lvl (test code = Calcium Lvl) 8.5 8.5-10.5 [place] 930682-12-17 10:57:00 Test Item Value Reference Range Interpretation Comments AGAP (test code = AGAP) 9.1 10.0-20.0 [place] [address]-12-17 10:57:00 Test Item Value Reference Range Interpretation Comments eGFR (test code = eGFR) 55 [facility]RnlnpnwNAKQJUKKJG9185-38-85 10:57:00 Test Item Value Reference Range Interpretation Comments Segs (test code = Segs) 67.0 45.0-75.0 [place] 519362-12-17 10:57:00 Test Item Value Reference Range Interpretation Comments Lymphocytes (test code = Lymphocytes) 21.5 20.0-40.0 [place] 519362-12-17 10:57:00 Test Item Value Reference Range Interpretation Comments Monocytes (test code = Monocytes) 9.0 2.0-12.0 [place] [address]-12-17 10:57:00 Test Item Value Reference Range Interpretation Comments Eosinophils (test code = 1.8 See_Comment [A utomated message] The Eosinophils) system which ge nerated this result tra nsmitted reference range : <=4.0. The reference r patria was not used to int erpret this result as normal/abnormal . [place] [address]-12-17 10:57:00 Test Item Value Reference Range Interpretation Comments Basophils (test code = 0.7 See_Comment [Aut omated message] The Basophils) system which ge nerated this result tra nsmitted reference range : <=1.0. The reference r patria was not used to int erpret this result as normal/abnormal . [place] 519362-12-17 10:57:00 Test Item Value Reference Range Interpretation Comments Neutrophils # (test code = Neutrophils 5.7 1.5-8.1 #) [facility]waerqoZQMHSPEEKU0887-13-86 10:57:00 Test Item Value Reference Range Interpretation Comments Lymphocytes # (test code = Lymphocytes 1.8 1.0-5.5 #) [place] 519362-12-17 10:57:00 Test Item Value Reference Range Interpretation Comments Monocytes # (test code 0.8 See_Comment [Aut omated message] The = Monocytes #) system which generated this result tra nsmitted reference range : <=0.8. The reference r patria was not used to int erpret this result as normal/abnormal . [place] 519362-12-17 10:57:00 Test Item Value Reference Range Interpretation Comments Eosinophils # (test code 0.2 See_Comment [A utomated message] The = Eosinophils #) system whic h generated this result tra nsmitted reference range : <=0.5. The reference r patria was not used to int erpret this result as normal/abnormal . [facility] CenterJcektwsEFXEDKOTAZ7918-82-55 10:57:00 Test Item Value Reference Range Interpretation Comments Basophils # (test code 0.1 See_Comment [Aut omated message] The = Basophils #) system which generated this result tra nsmitted reference range : <=0.2. The reference r patria was not used to int erpret this result as normal/abnormal . [facility] CenterBmicdcvSXGXWDOQAP6731-54-09 10:57:00 Test Item Value Reference Range Interpretation Comments Segs (test code = Segs) 67.0 45.0-75.0 [place] 519362-12-17 10:57:00 Test Item Value Reference Range Interpretation Comments Lymphocytes (test code = Lymphocytes) 21.5 20.0-40.0 [place] [address]-12-17 10:57:00 Test Item Value Reference Range Interpretation Comments Monocytes (test code = Monocytes) 9.0 2.0-12.0 [place] 519362-12-17 10:57:00 Test Item Value Reference Range Interpretation Comments Eosinophils (test code = 1.8 See_Comment [A utomated message] The Eosinophils) system which ge nerated this result tra nsmitted reference range : <=4.0. The reference r patria was not used to int erpret this result as normal/abnormal . [place] 519362-12-17 10:57:00 Test Item Value Reference Range Interpretation Comments Basophils (test code = 0.7 See_Comment [Aut omated message] The Basophils) system which ge nerated this result tra nsmitted reference range : <=1.0. The reference r patria was not used to int erpret this result as normal/abnormal . [place] 519362-12-17 10:57:00 Test Item Value Reference Range Interpretation Comments Neutrophils # (test code = Neutrophils 5.7 1.5-8.1 #) [facility]OgwrzdbSHEYBJZKUQ8441-26-54 10:57:00 Test Item Value Reference Range Interpretation Comments Lymphocytes # (test code = Lymphocytes 1.8 1.0-5.5 #) [place] [address]-12-17 10:57:00 Test Item Value Reference Range Interpretation Comments Monocytes # (test code 0.8 See_Comment [Aut omated message] The = Monocytes #) system which generated this result tra nsmitted reference range : <=0.8. The reference r patria was not used to int erpret this result as normal/abnormal . [place] 519362-12-17 10:57:00 Test Item Value Reference Range Interpretation Comments Eosinophils # (test code 0.2 See_Comment [A utomated message] The = Eosinophils #) system whic h generated this result tra nsmitted reference range : <=0.5. The reference r patria was not used to int erpret this result as normal/abnormal . [place] 519362-12-17 10:57:00 Test Item Value Reference Range Interpretation Comments Basophils # (test code 0.1 See_Comment [Aut omated message] The = Basophils #) system which generated this result tra nsmitted reference range : <=0.2. The reference r patria was not used to int erpret this result as normal/abnormal . [place] 519362-12-17 10:57:00 Test Item Value Reference Range Interpretation Comments WBC (test code = WBC) 8.6 3.7-10.4 [place] 519362-12-17 10:57:00 Test Item Value Reference Range Interpretation Comments RBC (test code = RBC) 2.52 4.20-5.40 [place] [address]-12-17 10:57:00 Test Item Value Reference Range Interpretation Comments Hgb (test code = Hgb) 8.2 12.0-16.0 [place] [address]-12-17 10:57:00 Test Item Value Reference Range Interpretation Comments Hct (test code = Hct) 24.5 36.0-48.0 [place] 519362-12-17 10:57:00 Test Item Value Reference Range Interpretation Comments MCV (test code = MCV) 97.2 80.0-98.0 [place] [address]-12-17 10:57:00 Test Item Value Reference Range Interpretation Comments MCH (test code = MCH) 32.6 pg 27.0-31.0 [place] 519362-12-17 10:57:00 Test Item Value Reference Range Interpretation Comments MCHC (test code = MCHC) 33.5 32.0-36.0 [place] 519362-12-17 10:57:00 Test Item Value Reference Range Interpretation Comments RDW (test code = RDW) 18.7 11.5-14.5 [place] [address]-12-17 10:57:00 Test Item Value Reference Range Interpretation Comments Platelet (test code = Platelet) 233 133-450 [place] [address]-12-17 10:57:00 Test Item Value Reference Range Interpretation Comments MPV (test code = MPV) 7.0 7.4-10.4 [place] 542562-12-17 10:57:00 Test Item Value Reference Range Interpretation Comments Glucose Lvl (test code = Glucose Lvl) 95 70-99 [place] 542562-12-17 10:57:00 Test Item Value Reference Range Interpretation Comments BUN (test code = BUN) 28 7-22 [place] 542562-12-17 10:57:00 Test Item Value Reference Range Interpretation Comments Creatinine Lvl (test code = Creatinine 1.02 0.50-1.40 Lvl) [place] 542562-12-17 10:57:00 Test Item Value Reference Range Interpretation Comments Sodium Lvl (test code = Sodium Lvl) 142 135-145 [place] 542562-12-17 10:57:00 Test Item Value Reference Range Interpretation Comments Potassium Lvl (test code = Potassium 4.1 3.5-5.1 Lvl) [place] 542562-12-17 10:57:00 Test Item Value Reference Range Interpretation Comments Chloride Lvl (test code = Chloride Lvl) 109 95-109 [place] 542562-12-17 10:57:00 Test Item Value Reference Range Interpretation Comments CO2 (test code = CO2) [place] 542562-12-17 10:57:00 Test Item Value Reference Range Interpretation Comments Calcium Lvl (test code = Calcium Lvl) 8.5 8.5-10.5 [place] 542562-12-17 10:57:00 Test Item Value Reference Range Interpretation Comments AGAP (test code = AGAP) 9.1 10.0-20.0 [facility]2022-12-17 10:57:00 Test Item Value Reference Range Interpretation Comments eGFR (test code = eGFR) 55 [place] 930682-12-17 10:57:00 Test Item Value Reference Range Interpretation Comments Glucose Lvl (test code = Glucose Lvl) 95 70-99 [place] 930682-12-17 10:57:00 Test Item Value Reference Range Interpretation Comments BUN (test code = BUN) 07 06- [facility] HospitalIwlepceUVCLLXBUW1309-33-27 10:57:00 Test Item Value Reference Range Interpretation Comments Creatinine Lvl (test code = Creatinine 1.02 0.50-1.40 Lvl) [facility] HospitalGcuzgzzWRWTMMXGK5577-17-40 10:57:00 Test Item Value Reference Range Interpretation Comments Sodium Lvl (test code = Sodium Lvl) 142 135-145 [place] [address]-12-17 10:57:00 Test Item Value Reference Range Interpretation Comments Potassium Lvl (test code = Potassium 4.1 3.5-5.1 Lvl) [place] 930682-12-17 10:57:00 Test Item Value Reference Range Interpretation Comments Chloride Lvl (test code = Chloride Lvl) 109 95-109 [place] 930682-12-17 10:57:00 Test Item Value Reference Range Interpretation Comments CO2 (test code = CO2) 24-32 [place] 930682-12-17 10:57:00 Test Item Value Reference Range Interpretation Comments Calcium Lvl (test code = Calcium Lvl) 8.5 8.5-10.5 [facility] HospitalGruouryEDXQCPIWA8948-61-33 10:57:00 Test Item Value Reference Range Interpretation Comments AGAP (test code = AGAP) 9.1 10.0-20.0 [place] 930682-12-17 10:57:00 Test Item Value Reference Range Interpretation Comments eGFR (test code = eGFR) 55 [facility]HhveqlqOHAUYMUWIO8454-25-12 10:57:00 Test Item Value Reference Range Interpretation Comments Segs (test code = Segs) 67.0 45.0-75.0 [facility] CenterRgjkgigUNOMYJDCQG8642-10-41 10:57:00 Test Item Value Reference Range Interpretation Comments Lymphocytes (test code = Lymphocytes) 21.5 20.0-40.0 [facility] CenterBnyixdbONZJMMUWOD4483-60-37 10:57:00 Test Item Value Reference Range Interpretation Comments Monocytes (test code = Monocytes) 9.0 2.0-12.0 [place] 519362-12-17 10:57:00 Test Item Value Reference Range Interpretation Comments Eosinophils (test code = 1.8 See_Comment [A utomated message] The Eosinophils) system which ge nerated this result tra nsmitted reference range : <=4.0. The reference r patria was not used to int erpret this result as normal/abnormal . [facility] CenterGcoloflXLGNMWODJK4371-26-38 10:57:00 Test Item Value Reference Range Interpretation Comments Basophils (test code = 0.7 See_Comment [Aut omated message] The Basophils) system which ge nerated this result tra nsmitted reference range : <=1.0. The reference r patria was not used to int erpret this result as normal/abnormal . [facility] CenterNwbgaybCBLOXULKBI0519-02-55 10:57:00 Test Item Value Reference Range Interpretation Comments Neutrophils # (test code = Neutrophils 5.7 1.5-8.1 #) [facility] CenterSiccubtRQPGVQRGEP6904-75-42 10:57:00 Test Item Value Reference Range Interpretation Comments Lymphocytes # (test code = Lymphocytes 1.8 1.0-5.5 #) [place] 519362-12-17 10:57:00 Test Item Value Reference Range Interpretation Comments Monocytes # (test code 0.8 See_Comment [Aut omated message] The = Monocytes #) system which generated this result tra nsmitted reference range : <=0.8. The reference r patria was not used to int erpret this result as normal/abnormal . [place] 519362-12-17 10:57:00 Test Item Value Reference Range Interpretation Comments Eosinophils # (test code 0.2 See_Comment [A utomated message] The = Eosinophils #) [facility] h generated this result tra nsmitted reference range : <=0.5. The reference r patria was not used to int erpret this result as normal/abnormal . [place] 519362-12-17 10:57:00 Test Item Value Reference Range Interpretation Comments Basophils # (test code 0.1 See_Comment [Aut omated message] The = Basophils #) system which generated this result tra nsmitted reference range : <=0.2. The reference r patria was not used to int erpret this result as normal/abnormal . [place] [address]-12-17 10:57:00 Test Item Value Reference Range Interpretation Comments Segs (test code = Segs) 67.0 45.0-75.0 [address]12-17 10:57:00 Test Item Value Reference Range Interpretation Comments Lymphocytes (test code = Lymphocytes) 21.5 20.0-40.0 [place] [address]-12-17 10:57:00 Test Item Value Reference Range Interpretation Comments Monocytes (test code = Monocytes) 9.0 2.0-12.0 [place] [address]-12-17 10:57:00 Test Item Value Reference Range Interpretation Comments Eosinophils (test code = 1.8 See_Comment [A utomated message] The Eosinophils) system which ge nerated this result tra nsmitted reference range : <=4.0. The reference r patria was not used to int erpret this result as normal/abnormal . [place] [address]-12-17 10:57:00 Test Item Value Reference Range Interpretation Comments Basophils (test code = 0.7 See_Comment [Aut omated message] The Basophils) system which ge nerated this result tra nsmitted reference range : <=1.0. The reference r patria was not used to int erpret this result as normal/abnormal . [facility] CenterLzdeswnWGFAZAMSYD7986-10-24 10:57:00 Test Item Value Reference Range Interpretation Comments Neutrophils # (test code = Neutrophils 5.7 1.5-8.1 #) [facility]EvfpxtlIQKAYCCDQZ4784-66-77 10:57:00 Test Item Value Reference Range Interpretation Comments Lymphocytes # (test code = Lymphocytes 1.8 1.0-5.5 #) [facility] CenterEazdpyzLNUHEXLLVA9512-28-42 10:57:00 Test Item Value Reference Range Interpretation Comments Monocytes # (test code 0.8 See_Comment [Aut omated message] The = Monocytes #) system which generated this result tra nsmitted reference range : <=0.8. The reference r patria was not used to int erpret this result as normal/abnormal . [facility] CenterGarwiejNCSQMJZRTU9233-71-24 10:57:00 Test Item Value Reference Range Interpretation Comments Eosinophils # (test code 0.2 See_Comment [A utomated message] The = Eosinophils #) system whic h generated this result tra nsmitted reference range : <=0.5. The reference r patria was not used to int erpret this result as normal/abnormal . [facility] CenterAeoephhXEQRGKHXIF4585-15-80 10:57:00 Test Item Value Reference Range Interpretation Comments Basophils # (test code 0.1 See_Comment [Aut omated message] The = Basophils #) system which generated this result tra nsmitted reference range : <=0.2. The reference r patria was not used to int erpret this result as normal/abnormal . [facility] CenterRqngxikEQUOOUJCHD5389-45-82 10:57:00 Test Item Value Reference Range Interpretation Comments WBC (test code = WBC) 8.6 3.7-10.4 [place] 519362-12-17 10:57:00 Test Item Value Reference Range Interpretation Comments RBC (test code = RBC) 2.52 4.20-5.40 [place] 519362-12-17 10:57:00 Test Item Value Reference Range Interpretation Comments Hgb (test code = Hgb) 8.2 12.0-16.0 [place] 519362-12-17 10:57:00 Test Item Value Reference Range Interpretation Comments Hct (test code = Hct) 24.5 36.0-48.0 [place] 519362-12-16 20:52:00 Test Item Value Reference Range Interpretation Comments Hgb (test code = Hgb) 7.8 12.0-16.0 [facility] CenterOnrasrrLLWMVDARJN4081-49-47 20:52:00 Test Item Value Reference Range Interpretation Comments Hct (test code = Hct) 23.1 36.0-48.0 [facility] CenterMnpeikvZUQOMBLOME6666-92-02 20:52:00 Test Item Value Reference Range Interpretation Comments Hgb (test code = Hgb) 7.8 12.0-16.0 [place] 519362-12-16 20:52:00 Test Item Value Reference Range Interpretation Comments Hct (test code = Hct) 23.1 36.0-48.0 [facility] CenterPdokjesGGXZVWKQQL6501-77-81 20:52:00 Test Item Value Reference Range Interpretation Comments Hgb (test code = Hgb) 7.8 12.0-16.0 [facility] CenterTxqzkctHNAFOYQHYC7190-36-30 20:52:00 Test Item Value Reference Range Interpretation Comments Hct (test code = Hct) 23.1 36.0-48.0 [facility] CenterRyfdtrqBKMSBBVPUV9947-31-19 20:52:00 Test Item Value Reference Range Interpretation Comments Hgb (test code = Hgb) 7.8 12.0-16.0 [facility] CenterOoosqasFDXCVJHGFV3243-21-75 20:52:00 Test Item Value Reference Range Interpretation Comments Hct (test code = Hct) 23.1 36.0-48.0 [facility] CenterKqulwmfZDYDWMMEYQ6497-84-00 20:52:00 Test Item Value Reference Range Interpretation Comments Hgb (test code = Hgb) 7.8 12.0-16.0 [place] 519362-12-16 20:52:00 Test Item Value Reference Range Interpretation Comments Hct (test code = Hct) 23.1 36.0-48.0 [facility] CenterIdeqlwsJCYWMYZFOY1292-43-13 20:52:00 Test Item Value Reference Range Interpretation Comments Hgb (test code = Hgb) 7.8 12.0-16.0 [place] [address]-12-16 20:52:00 Test Item Value Reference Range Interpretation Comments Hct (test code = Hct) 23.1 36.0-48.0 [place] [address]-12-16 20:52:00 Test Item Value Reference Range Interpretation Comments Hgb (test code = Hgb) 7.8 12.0-16.0 [place] [address]-12-16 20:52:00 Test Item Value Reference Range Interpretation Comments Hct (test code = Hct) 23.1 36.0-48.0 [place] [address]-12-16 20:52:00 Test Item Value Reference Range Interpretation Comments Hgb (test code = Hgb) 7.8 12.0-16.0 [place] [address]-12-16 20:52:00 Test Item Value Reference Range Interpretation Comments Hct (test code = Hct) 23.1 36.0-48.0 [place] [address]-12-16 20:52:00 Test Item Value Reference Range Interpretation Comments Hgb (test code = Hgb) 7.8 12.0-16.0 [address]12-16 20:52:00 Test Item Value Reference Range Interpretation Comments Hct (test code = Hct) 23.1 36.0-48.[address]12-16 20:52:00 Test Item Value Reference Range Interpretation Comments Hgb (test code = Hgb) 7.8 12.0-16.[address]12-16 20:52:00 Test Item Value Reference Range Interpretation Comments Hct (test code = Hct) 23.1 36.0-48.[address]12-16 20:52:00 Test Item Value Reference Range Interpretation Comments Hgb (test code = Hgb) 7.8 12.0-16.[address]12-16 20:52:00 Test Item Value Reference Range Interpretation Comments Hct (test code = Hct) 23.1 36.0-48.0 [place] [address]-12-16 17:31:00 Test Item Value Reference Range Interpretation Comments Glucose POC (test code = Glucose POC) 72 70-[address]12-16 17:31:00 Test Item Value Reference Range Interpretation Comments Gluc POC Comment 1 (test code Notified RN/MD = Gluc POC Comment 1) [place] [address]-12-16 17:31:00 Test Item Value Reference Range Interpretation Comments Glucose POC (test code = Glucose POC) 72 70- [place] [address]-12-16 17:31:00 Test Item Value Reference Range Interpretation Comments Gluc POC Comment 1 (test code Notified RN/MD = Gluc POC Comment 1) [address]12-16 17:31:00 Test Item Value Reference Range Interpretation Comments Glucose POC (test code = Glucose POC) 72 70 [place] [address]-12-16 17:31:00 Test Item Value Reference Range Interpretation Comments Gluc POC Comment 1 (test code Notified RN/MD = Gluc POC Comment 1) [address]12-16 17:31:00 Test Item Value Reference Range Interpretation Comments Glucose POC (test code = Glucose POC) 72 [place] [address]-12-16 17:31:00 Test Item Value Reference Range Interpretation Comments Gluc POC Comment 1 (test code Notified RN/MD = Gluc POC Comment 1) [place] [address]-12-16 17:31:00 Test Item Value Reference Range Interpretation Comments Glucose POC (test code = Glucose POC) 72 70 [address]12-16 17:31:00 Test Item Value Reference Range Interpretation Comments Gluc POC Comment 1 (test code Notified RN/MD = Gluc POC Comment 1) [place] [address]-12-16 17:31:00 Test Item Value Reference Range Interpretation Comments Glucose POC (test code = Glucose POC) 72 70 [place] [address]-12-16 17:31:00 Test Item Value Reference Range Interpretation Comments Gluc POC Comment 1 (test code Notified RN/MD = Gluc POC Comment 1) [place] [address]-12-16 17:31:00 Test Item Value Reference Range Interpretation Comments Glucose POC (test code = Glucose POC) 72 70 [place] [address]-12-16 17:31:00 Test Item Value Reference Range Interpretation Comments Gluc POC Comment 1 (test code Notified RN/MD = Gluc POC Comment 1) [place] [address]-12-16 17:31:00 Test Item Value Reference Range Interpretation Comments Glucose POC (test code = Glucose POC) 72 70 [place] [address]-12-16 17:31:00 Test Item Value Reference Range Interpretation Comments Gluc POC Comment 1 (test code Notified RN/MD = Gluc POC Comment 1) [address]12-16 17:31:00 Test Item Value Reference Range Interpretation Comments Glucose POC (test code = Glucose POC) 72 70-[address]12-16 17:31:00 Test Item Value Reference Range Interpretation Comments Gluc POC Comment 1 (test code Notified RN/MD = Gluc POC Comment 1) [address]12-16 17:31:00 Test Item Value Reference Range Interpretation Comments Glucose POC (test code = Glucose POC) 72 70-99 [address]12-16 17:31:00 Test Item Value Reference Range Interpretation Comments Gluc POC Comment 1 (test code Notified RN/MD = Gluc POC Comment 1) [address]12-16 17:31:00 Test Item Value Reference Range Interpretation Comments Glucose POC (test code = Glucose POC) 72 70-99 [address]12-16 17:31:00 Test Item Value Reference Range Interpretation Comments Gluc POC Comment 1 (test code Notified RN/MD = Gluc POC Comment 1) [address]12-16 08:12:00 Test Item Value Reference Range Interpretation Comments Glucose Lvl (test code = Glucose Lvl) 94 70-[address]12-16 08:12:00 Test Item Value Reference Range Interpretation Comments BUN (test code = BUN) 40 7-[address]12-16 08:12:00 Test Item Value Reference Range Interpretation Comments Creatinine Lvl (test code = Creatinine 1.07 0.50-1.40 Lvl) [address]12-16 08:12:00 Test Item Value Reference Range Interpretation Comments Sodium Lvl (test code = Sodium Lvl) 144 135-[address]12-16 08:12:00 Test Item Value Reference Range Interpretation Comments Potassium Lvl (test code = Potassium 4.6 3.5-5.1 Lvl) [address]12-16 08:12:00 Test Item Value Reference Range Interpretation Comments Chloride Lvl (test code = Chloride Lvl) 111 95-109 [place] 542562-12-16 08:12:00 Test Item Value Reference Range Interpretation Comments CO2 (test code = CO2) 28 24-32 [place] [address]-12-16 08:12:00 Test Item Value Reference Range Interpretation Comments AGAP (test code = AGAP) 9.6 10.0-20.0 [address]12-16 08:12:00 Test Item Value Reference Range Interpretation Comments Calcium Lvl (test code = Calcium Lvl) 8.4 8.5-10.[address]12-16 08:12:00 Test Item Value Reference Range Interpretation Comments B/C Ratio (test code = B/C Ratio) 37 1 6-[address]12-16 08:12:00 Test Item Value Reference Range Interpretation Comments Total Protein (test code = Total 5.6 6.4-8.4 Protein) [address]12-16 08:12:00 Test Item Value Reference Range Interpretation Comments Albumin Lvl (test code = Albumin Lvl) 2.2 3.5-5.[address]12-16 08:12:00 Test Item Value Reference Range Interpretation Comments Globulin (test code = Globulin) 3.4 2.7-4.2 [place] [address]-12-16 08:12:00 Test Item Value Reference Range Interpretation Comments A/G Ratio (test code = A/G Ratio) 0.6 1 0.7-1.[address]12-16 08:12:00 Test Item Value Reference Range Interpretation Comments ALT (test code = ALT) 11 See_Comment [Auto mated message] The system which ge nerated this result transmit rosendo reference range : <=65. The reference range was not used to interpr et this result as josi l/abnormal. [address]12-16 08:12:00 Test Item Value Reference Range Interpretation Comments AST (test code = AST) 19 See_Comment [Auto mated message] The system which ge nerated this result transmit rosendo reference range : <=37. The reference range was not used to interpr et this result as josi l/abnormal. [facility] [id number] 08:12:00 Test Item Value Reference Range Interpretation Comments Alk Phos (test code = Alk Phos) 98 39-136 [place] 542562-12-16 08:12:00 Test Item Value Reference Range Interpretation Comments Bili Total (test code = Bili Total) 0.5 0.2-1.3 [place] 542562-12-16 08:12:00 Test Item Value Reference Range Interpretation Comments eGFR (test code = eGFR) 52 [place] 542562-12-16 08:12:00 Test Item Value Reference Range Interpretation Comments Magnesium Lvl (test code = Magnesium 2.0 1.8-2.4 Lvl) [place] 542562-12-16 08:12:00 Test Item Value Reference Range Interpretation Comments Phosphorus (test code = Phosphorus) 3.8 2.5-4.5 [place] 930682-12-16 08:12:00 Test Item Value Reference Range Interpretation Comments Ca Ion WB (test code = Ca Ion WB) 1.17 1.05-1.25 [place] [address]-12-16 08:12:00 Test Item Value Reference Range Interpretation Comments Ca Ion at pH 7.4 WB (test code = Ca Ion 1.16 1.05-1.25 at pH 7.4 WB) [place] 930682-12-16 08:12:00 Test Item Value Reference Range Interpretation Comments B/C Ratio (test code = B/C Ratio) 37 1 6-25 [place] 930682-12-16 08:12:00 Test Item Value Reference Range Interpretation Comments Total Protein (test code = Total 5.6 6.4-8.4 Protein) [place] [address]-12-16 08:12:00 Test Item Value Reference Range Interpretation Comments Albumin Lvl (test code = Albumin Lvl) 2.2 3.5-5.0 [place] 930682-12-16 08:12:00 Test Item Value Reference Range Interpretation Comments Globulin (test code = Globulin) 3.4 2.7-4.2 [place] 930682-12-16 08:12:00 Test Item Value Reference Range Interpretation Comments A/G Ratio (test code = A/G Ratio) 0.6 1 0.7-1.6 [place] 930682-12-16 08:12:00 Test Item Value Reference Range Interpretation Comments ALT (test code = ALT) 11 See_Comment [Auto mated message] The system which ge nerated this result transmit rosendo reference range : <=65. The reference range was not used to interpr et this result as josi l/abnormal. [facility] PhtdrnuCIGWHZACH6606-20-65 08:12:00 Test Item Value Reference Range Interpretation Comments AST (test code = AST) 19 See_Comment [Auto mated message] The system which ge nerated this result transmit rosedno reference range : <=37. The reference range was not used to interpr et this result as josi l/abnormal. [facility] IehngehMUEPMPBLS7925-32-26 08:12:00 Test Item Value Reference Range Interpretation Comments Alk Phos (test code = Alk Phos) 98 39-136 [facility] WbbbbtmXUVJTEQWM5362-39-09 08:12:00 Test Item Value Reference Range Interpretation Comments Bili Total (test code = Bili Total) 0.5 0.2-1.3 [facility] MgnruvsDGWOZRAYH6075-63-98 08:12:00 Test Item Value Reference Range Interpretation Comments Magnesium Lvl (test code = Magnesium 2.0 1.8-2.4 Lvl) [facility] CtdupsqTTTXSTTGA3349-63-27 08:12:00 Test Item Value Reference Range Interpretation Comments Phosphorus (test code = Phosphorus) 3.8 2.5-4.5 [facility] RhrbjmyRWTPPJWBOQ5366-81-40 08:12:00 Test Item Value Reference Range Interpretation Comments WBC (test code = WBC) 5.6 3.7-10.4 [facility] IvmihevUJVHCKZHGW5519-20-04 08:12:00 Test Item Value Reference Range Interpretation Comments RBC (test code = RBC) 2.44 4.20-5.40 [facility] VzrtyamLAHHEGISQU9296-66-77 08:12:00 Test Item Value Reference Range Interpretation Comments MCV (test code = MCV) 96.5 80.0-98.0 [facility] BemticlOXMORIDVVN5677-80-82 08:12:00 Test Item Value Reference Range Interpretation Comments MCH (test code = MCH) 32.9 pg 27.0-31.0 [facility] JmcmdaiHLYOAZZGPA2916-43-75 08:12:00 Test Item Value Reference Range Interpretation Comments MCHC (test code = MCHC) 34.0 32.0-36.0 [place] [address]-12-16 08:12:00 Test Item Value Reference Range Interpretation Comments RDW (test code = RDW) 18.4 11.5-14.5 [place] [address]-12-16 08:12:00 Test Item Value Reference Range Interpretation Comments Platelet (test code = Platelet) 241 133-450 [place] [address]-12-16 08:12:00 Test Item Value Reference Range Interpretation Comments MPV (test code = MPV) 7.1 7.4-10.[address]12-16 08:12:00 Test Item Value Reference Range Interpretation Comments Ca Ion WB (test code = Ca Ion WB) 1.17 1.05-1.[address]12-16 08:12:00 Test Item Value Reference Range Interpretation Comments Ca Ion at pH 7.4 WB (test code = Ca Ion 1.16 1.05-1.25 at pH 7.4 WB) [place] [address]-12-16 08:12:00 Test Item Value Reference Range Interpretation Comments Glucose Lvl (test code = Glucose Lvl) 94 70-99 [place] 542562-12-16 08:12:00 Test Item Value Reference Range Interpretation Comments BUN (test code = BUN) 40 7-22 [place] [address]-12-16 08:12:00 Test Item Value Reference Range Interpretation Comments Creatinine Lvl (test code = Creatinine 1.07 0.50-1.40 Lvl) [place] [address]-12-16 08:12:00 Test Item Value Reference Range Interpretation Comments Sodium Lvl (test code = Sodium Lvl) 144 135-145 [place] [address]-12-16 08:12:00 Test Item Value Reference Range Interpretation Comments Potassium Lvl (test code = Potassium 4.6 3.5-5.1 Lvl) [place] [address]-12-16 08:12:00 Test Item Value Reference Range Interpretation Comments Chloride Lvl (test code = Chloride Lvl) 111 95-109 [place] 542562-12-16 08:12:00 Test Item Value Reference Range Interpretation Comments CO2 (test code = CO2) 28 24-32 [place] 542562-12-16 08:12:00 Test Item Value Reference Range Interpretation Comments AGAP (test code = AGAP) 9.6 10.0-20.0 [place] 542562-12-16 08:12:00 Test Item Value Reference Range Interpretation Comments Calcium Lvl (test code = Calcium Lvl) 8.4 8.5-10.5 [place] 542562-12-16 08:12:00 Test Item Value Reference Range Interpretation Comments B/C Ratio (test code = B/C Ratio) 37 1 6-25 [place] [address]-12-16 08:12:00 Test Item Value Reference Range Interpretation Comments Total Protein (test code = Total 5.6 6.4-8.4 Protein) [place] [address]-12-16 08:12:00 Test Item Value Reference Range Interpretation Comments Albumin Lvl (test code = Albumin Lvl) 2.2 3.5-5.0 [place] [address]-12-16 08:12:00 Test Item Value Reference Range Interpretation Comments Globulin (test code = Globulin) 3.4 2.7-4.2 [place] [address]-12-16 08:12:00 Test Item Value Reference Range Interpretation Comments A/G Ratio (test code = A/G Ratio) 0.6 1 0.7-1.6 [place] [address]-12-16 08:12:00 Test Item Value Reference Range Interpretation Comments ALT (test code = ALT) 11 See_Comment [Auto mated message] The system which ge nerated this result transmit rosendo reference range : <=65. The reference range was not used to interpr et this result as josi l/abnormal. [facility] [id number] 08:12:00 Test Item Value Reference Range Interpretation Comments AST (test code = AST) 19 See_Comment [Auto mated message] The system which ge nerated this result transmit rosendo reference range : <=37. The reference range was not used to interpr et this result as josi l/abnormal. [place] [address]-12-16 08:12:00 Test Item Value Reference Range Interpretation Comments Alk Phos (test code = Alk Phos) 98 39-136 [place] [address]-12-16 08:12:00 Test Item Value Reference Range Interpretation Comments Bili Total (test code = Bili Total) 0.5 0.2-1.[address]12-16 08:12:00 Test Item Value Reference Range Interpretation Comments eGFR (test code = eGFR) [address]12-16 08:12:00 Test Item Value Reference Range Interpretation Comments Magnesium Lvl (test code = Magnesium 2.0 1.8-2.4 Lvl) [address]12-16 08:12:00 Test Item Value Reference Range Interpretation Comments Phosphorus (test code = Phosphorus) 3.8 2.5-4.[address]12-16 08:12:00 Test Item Value Reference Range Interpretation Comments Ca Ion WB (test code = Ca Ion WB) 1.17 1.05-1.[address]12-16 08:12:00 Test Item Value Reference Range Interpretation Comments Ca Ion at pH 7.4 WB (test code = Ca Ion 1.16 1.05-1.25 at pH 7.4 WB) [address]12-16 08:12:00 Test Item Value Reference Range Interpretation Comments B/C Ratio (test code = B/C Ratio) 37 1 6-25 [place] [address]-12-16 08:12:00 Test Item Value Reference Range Interpretation Comments Total Protein (test code = Total 5.6 6.4-8.4 Protein) [place] [address]-12-16 08:12:00 Test Item Value Reference Range Interpretation Comments Albumin Lvl (test code = Albumin Lvl) 2.2 3.5-5.0 [place] [address]-12-16 08:12:00 Test Item Value Reference Range Interpretation Comments Globulin (test code = Globulin) 3.4 2.7-4.2 [place] [address]-12-16 08:12:00 Test Item Value Reference Range Interpretation Comments A/G Ratio (test code = A/G Ratio) 0.6 1 0.7-1.6 [place] [address]-12-16 08:12:00 Test Item Value Reference Range Interpretation Comments ALT (test code = ALT) 11 See_Comment [Auto mated message] The system which ge nerated this result transmit rosendo reference range : <=65. The reference range was not used to interpr et this result as josi l/abnormal. [facility] ResourcesRmrxmchNKVUNALBV1414-90-72 08:12:00 Test Item Value Reference Range Interpretation Comments AST (test code = AST) 19 See_Comment [Auto mated message] The system which ge nerated this result transmit rosendo reference range : <=37. The reference range was not used to interpr et this result as josi l/abnormal. [facility] ResourcesYdxngebYDLCNGAKP7115-26-06 08:12:00 Test Item Value Reference Range Interpretation Comments Alk Phos (test code = Alk Phos) 98 39-136 [facility] ResourcesGltceaoQABPMRPBJ9118-81-23 08:12:00 Test Item Value Reference Range Interpretation Comments Bili Total (test code = Bili Total) 0.5 0.2-1.3 [facility] ResourcesHlosuezPTCWXEIDF3996-24-30 08:12:00 Test Item Value Reference Range Interpretation Comments Magnesium Lvl (test code = Magnesium 2.0 1.8-2.4 Lvl) [facility] ResourcesWigkooiNYRMWRQEK3933-51-03 08:12:00 Test Item Value Reference Range Interpretation Comments Phosphorus (test code = Phosphorus) 3.8 2.5-4.5 [facility] ResourcesClywtsiZXZIMZFNIN2771-52-26 08:12:00 Test Item Value Reference Range Interpretation Comments WBC (test code = WBC) 5.6 3.7-10.4 [facility] ResourcesDnmvlhsNPBTZARGQZ6093-23-98 08:12:00 Test Item Value Reference Range Interpretation Comments RBC (test code = RBC) 2.44 4.20-5.40 [facility] ResourcesRfoexecHTEALRELNM4693-26-80 08:12:00 Test Item Value Reference Range Interpretation Comments MCV (test code = MCV) 96.5 80.0-98.0 [facility] ResourcesBxujjwaQDQTISVKEY5402-79-65 08:12:00 Test Item Value Reference Range Interpretation Comments MCH (test code = MCH) 32.9 pg 27.0-31.0 [facility] ResourcesGpdwykzCQSLSABWQD8952-47-57 08:12:00 Test Item Value Reference Range Interpretation Comments MCHC (test code = MCHC) 34.0 32.0-36.0 [facility] ResourcesCyoygrgGFRUZEDTMV3101-24-12 08:12:00 Test Item Value Reference Range Interpretation Comments RDW (test code = RDW) 18.4 11.5-14.5 [place] [address]-12-16 08:12:00 Test Item Value Reference Range Interpretation Comments Platelet (test code = Platelet) 241 133-450 [place] [address]-12-16 08:12:00 Test Item Value Reference Range Interpretation Comments MPV (test code = MPV) 7.1 7.4-10.4 [place] 022582-12-16 08:12:00 Test Item Value Reference Range Interpretation Comments Ca Ion WB (test code = Ca Ion WB) 1.17 1.05-1.[address]12-16 08:12:00 Test Item Value Reference Range Interpretation Comments Ca Ion at pH 7.4 WB (test code = Ca Ion 1.16 1.05-1.25 at pH 7.4 WB) [place] 542562-12-16 08:12:00 Test Item Value Reference Range Interpretation Comments Glucose Lvl (test code = Glucose Lvl) 94 70-99 [place] 542562-12-16 08:12:00 Test Item Value Reference Range Interpretation Comments BUN (test code = BUN) 40 7-22 [place] 542562-12-16 08:12:00 Test Item Value Reference Range Interpretation Comments Creatinine Lvl (test code = Creatinine 1.07 0.50-1.40 Lvl) [place] 542562-12-16 08:12:00 Test Item Value Reference Range Interpretation Comments Sodium Lvl (test code = Sodium Lvl) 144 135-145 [place] 542562-12-16 08:12:00 Test Item Value Reference Range Interpretation Comments Potassium Lvl (test code = Potassium 4.6 3.5-5.1 Lvl) [place] 542562-12-16 08:12:00 Test Item Value Reference Range Interpretation Comments Chloride Lvl (test code = Chloride Lvl) 111 95-109 [place] [address]-12-16 08:12:00 Test Item Value Reference Range Interpretation Comments CO2 (test code = CO2) 28 24-32 [place] 542562-12-16 08:12:00 Test Item Value Reference Range Interpretation Comments AGAP (test code = AGAP) 9.6 10.0-20.[address]12-16 08:12:00 Test Item Value Reference Range Interpretation Comments Calcium Lvl (test code = Calcium Lvl) 8.4 8.5-10.5 [place] [address]-12-16 08:12:00 Test Item Value Reference Range Interpretation Comments B/C Ratio (test code = B/C Ratio) 37 1 6-25 [place] [address]-12-16 08:12:00 Test Item Value Reference Range Interpretation Comments Total Protein (test code = Total 5.6 6.4-8.4 Protein) [address]12-16 08:12:00 Test Item Value Reference Range Interpretation Comments Albumin Lvl (test code = Albumin Lvl) 2.2 3.5-5.[address]12-16 08:12:00 Test Item Value Reference Range Interpretation Comments Globulin (test code = Globulin) 3.4 2.7-4.2 [place] [address]-12-16 08:12:00 Test Item Value Reference Range Interpretation Comments A/G Ratio (test code = A/G Ratio) 0.6 1 0.7-1.[address]12-16 08:12:00 Test Item Value Reference Range Interpretation Comments ALT (test code = ALT) 11 See_Comment [Auto mated message] The system which ge nerated this result transmit rosendo reference range : <=65. The reference range was not used to interpr et this result as josi l/abnormal. [facility] [id number] 08:12:00 Test Item Value Reference Range Interpretation Comments AST (test code = AST) 19 See_Comment [Auto mated message] The system which ge nerated this result transmit rosendo reference range : <=37. The reference range was not used to interpr et this result as josi l/abnormal. [facility] [id number] 08:12:00 Test Item Value Reference Range Interpretation Comments Alk Phos (test code = Alk Phos) 98 39-136 [facility] [id number] 08:12:00 Test Item Value Reference Range Interpretation Comments Bili Total (test code = Bili Total) 0.5 0.2-1.3 [place] [address]-12-16 08:12:00 Test Item Value Reference Range Interpretation Comments eGFR (test code = eGFR) 52 [place] [address]-12-16 08:12:00 Test Item Value Reference Range Interpretation Comments Magnesium Lvl (test code = Magnesium 2.0 1.8-2.4 Lvl) [address]12-16 08:12:00 Test Item Value Reference Range Interpretation Comments Phosphorus (test code = Phosphorus) 3.8 2.5-4.[address]12-16 08:12:00 Test Item Value Reference Range Interpretation Comments Ca Ion WB (test code = Ca Ion WB) 1.17 1.05-1.25 [place] [address]-12-16 08:12:00 Test Item Value Reference Range Interpretation Comments Ca Ion at pH 7.4 WB (test code = Ca Ion 1.16 1.05-1.25 at pH 7.4 WB) [place] [address]-12-16 08:12:00 Test Item Value Reference Range Interpretation Comments B/C Ratio (test code = B/C Ratio) 37 1 6-25 [place] [address]-12-16 08:12:00 Test Item Value Reference Range Interpretation Comments Total Protein (test code = Total 5.6 6.4-8.4 Protein) [place] [address]-12-16 08:12:00 Test Item Value Reference Range Interpretation Comments Albumin Lvl (test code = Albumin Lvl) 2.2 3.5-5.0 [place] [address]-12-16 08:12:00 Test Item Value Reference Range Interpretation Comments Globulin (test code = Globulin) 3.4 2.7-4.2 [place] [address]-12-16 08:12:00 Test Item Value Reference Range Interpretation Comments A/G Ratio (test code = A/G Ratio) 0.6 1 0.7-1.6 [place] [address]-12-16 08:12:00 Test Item Value Reference Range Interpretation Comments ALT (test code = ALT) 11 See_Comment [Auto mated message] The system which ge nerated this result transmit rosendo reference range : <=65. The reference range was not used to interpr et this result as josi l/abnormal. [facility]82[facility]:12:00 Test Item Value Reference Range Interpretation Comments AST (test code = AST) 19 See_Comment [Auto mated message] The system which ge nerated this result transmit rosendo reference range : <=37. The reference range was not used to interpr et this result as josi l/abnormal. [facility] HospitalOddnxllESPBVPJDX8020-82-12 08:12:00 Test Item Value Reference Range Interpretation Comments Alk Phos (test code = Alk Phos) 98 39-136 [facility] HospitalEvgyrfqHEPJKQXKK0052-17-76 08:12:00 Test Item Value Reference Range Interpretation Comments Bili Total (test code = Bili Total) 0.5 0.2-1.3 [facility] HospitalMknslkvTMOUGZZQC9303-60-68 08:12:00 Test Item Value Reference Range Interpretation Comments Magnesium Lvl (test code = Magnesium 2.0 1.8-2.4 Lvl) [facility] HospitalQmmezmlVENXGHXWG9485-80-38 08:12:00 Test Item Value Reference Range Interpretation Comments Phosphorus (test code = Phosphorus) 3.8 2.5-4.5 [facility] 08:12:00 Test Item Value Reference Range Interpretation Comments WBC (test code = WBC) 5.6 3.7-10.4 [facility] CenterQukkjsrJFBGDAGAFY7360-44-94 08:12:00 Test Item Value Reference Range Interpretation Comments RBC (test code = RBC) 2.44 4.20-5.40 [facility]agXNQVIOVEBE4719[facility]38-69 08:12:00 Test Item Value Reference Range Interpretation Comments MCV (test code = MCV) 96.5 80.0-98.0 [facility]wbikxjWCHUGGCUBI9800-84-65 08:12:00 Test Item Value Reference Range Interpretation Comments MCH (test code = MCH) 32.9 pg 27.0-31.0 [facility] ServicesAfunkruCKYYYOPJJH4466-73-72 08:12:00 Test Item Value Reference Range Interpretation Comments MCHC (test code = MCHC) 34.0 32.0-36.0 [facility] ServicesNezygimHZXTHPGLCF8240-80-28 08:12:00 Test Item Value Reference Range Interpretation Comments RDW (test code = RDW) 18.4 11.5-14.5 [place] [address]-12-16 08:12:00 Test Item Value Reference Range Interpretation Comments Platelet (test code = Platelet) 241 133-450 [place] [address]-12-16 08:12:00 Test Item Value Reference Range Interpretation Comments MPV (test code = MPV) 7.1 7.4-10.4 [place] 022582-12-16 08:12:00 Test Item Value Reference Range Interpretation Comments Ca Ion WB (test code = Ca Ion WB) 1.17 1.05-1.[address]12-16 08:12:00 Test Item Value Reference Range Interpretation Comments Ca Ion at pH 7.4 WB (test code = Ca Ion 1.16 1.05-1.25 at pH 7.4 WB) [place] 542562-12-16 08:12:00 Test Item Value Reference Range Interpretation Comments Glucose Lvl (test code = Glucose Lvl) 94 70-99 [place] 542562-12-16 08:12:00 Test Item Value Reference Range Interpretation Comments BUN (test code = BUN) 40 7-22 [place] [address]-12-16 08:12:00 Test Item Value Reference Range Interpretation Comments Creatinine Lvl (test code = Creatinine 1.07 0.50-1.40 Lvl) [place] [address]-12-16 08:12:00 Test Item Value Reference Range Interpretation Comments Sodium Lvl (test code = Sodium Lvl) 144 135-145 [place] 542562-12-16 08:12:00 Test Item Value Reference Range Interpretation Comments Potassium Lvl (test code = Potassium 4.6 3.5-5.1 Lvl) [place] [address]-12-16 08:12:00 Test Item Value Reference Range Interpretation Comments Chloride Lvl (test code = Chloride Lvl) 111 95-109 [place] [address]-12-16 08:12:00 Test Item Value Reference Range Interpretation Comments CO2 (test code = CO2) 28 24-32 [place] [address]-12-16 08:12:00 Test Item Value Reference Range Interpretation Comments AGAP (test code = AGAP) 9.6 10.0-20.0 [place] 542562-12-16 08:12:00 Test Item Value Reference Range Interpretation Comments Calcium Lvl (test code = Calcium Lvl) 8.4 8.5-10.5 [place] 542562-12-16 08:12:00 Test Item Value Reference Range Interpretation Comments B/C Ratio (test code = B/C Ratio) 37 1 6-25 [place] [address]-12-16 08:12:00 Test Item Value Reference Range Interpretation Comments Total Protein (test code = Total 5.6 6.4-8.4 Protein) [place] [address]-12-16 08:12:00 Test Item Value Reference Range Interpretation Comments Albumin Lvl (test code = Albumin Lvl) 2.2 3.5-5.0 [place] [address]-12-16 08:12:00 Test Item Value Reference Range Interpretation Comments Globulin (test code = Globulin) 3.4 2.7-4.2 [place] 542562-12-16 08:12:00 Test Item Value Reference Range Interpretation Comments A/G Ratio (test code = A/G Ratio) 0.6 1 0.7-1.6 [place] [address]-12-16 08:12:00 Test Item Value Reference Range Interpretation Comments ALT (test code = ALT) 11 See_Comment [Auto mated message] The system which ge nerated this result transmit rosendo reference range : <=65. The reference range was not used to interpr et this result as josi l/abnormal. [place] 542562-12-16 08:12:00 Test Item Value Reference Range Interpretation Comments AST (test code = AST) 19 See_Comment [Auto mated message] The system which ge nerated this result transmit rosendo reference range : <=37. The reference range was not used to interpr et this result as josi l/abnormal. [facility] [id number] 08:12:00 Test Item Value Reference Range Interpretation Comments Alk Phos (test code = Alk Phos) 98 39-136 [place] 542562-12-16 08:12:00 Test Item Value Reference Range Interpretation Comments Bili Total (test code = Bili Total) 0.5 0.2-1.3 [facility] [id number] 08:12:00 Test Item Value Reference Range Interpretation Comments eGFR (test code = eGFR) 52 [facility] [id number] 08:12:00 Test Item Value Reference Range Interpretation Comments Magnesium Lvl (test code = Magnesium 2.0 1.8-2.4 Lvl) [facility] [id number] 08:12:00 Test Item Value Reference Range Interpretation Comments Phosphorus (test code = Phosphorus) 3.8 2.5-4.5 [place] 930682-12-16 08:12:00 Test Item Value Reference Range Interpretation Comments Ca Ion WB (test code = Ca Ion WB) 1.17 1.05-1.25 [facility]PhfnazhHIHIJIOSW6569-85-63 08:12:00 Test Item Value Reference Range Interpretation Comments Ca Ion at pH 7.4 WB (test code = Ca Ion 1.16 1.05-1.25 at pH 7.4 WB) [facility] HospitalBtshdizYINCCVSUC9722-16-60 08:12:00 Test Item Value Reference Range Interpretation Comments B/C Ratio (test code = B/C Ratio) 37 1 6-25 [place] 930682-12-16 08:12:00 Test Item Value Reference Range Interpretation Comments Total Protein (test code = Total 5.6 6.4-8.4 Protein) [facility] HospitalOkxofbbVDSRAZZPY7804-93-95 08:12:00 Test Item Value Reference Range Interpretation Comments Albumin Lvl (test code = Albumin Lvl) 2.2 3.5-5.0 [facility] HospitalRsmbdvgUDMOQAWHI2823-01-66 08:12:00 Test Item Value Reference Range Interpretation Comments Globulin (test code = Globulin) 3.4 2.7-4.2 [place] 930682-12-16 08:12:00 Test Item Value Reference Range Interpretation Comments A/G Ratio (test code = A/G Ratio) 0.6 1 0.7-1.6 [place] [address]-12-16 08:12:00 Test Item Value Reference Range Interpretation Comments ALT (test code = ALT) 11 See_Comment [Auto mated message] The system which ge nerated this result transmit rosendo reference range : <=65. The reference range was not used to interpr et this result as josi l/abnormal. [facility] HospitalEsjisldTATJDITJT3773-06-58 08:12:00 Test Item Value Reference Range Interpretation Comments AST (test code = AST) 19 See_Comment [Auto mated message] The system which ge nerated this result transmit rosendo reference range : <=37. The reference range was not used to interpr et this result as josi l/abnormal. [facility] HospitalCgjowryORBEJKAXD1477-49-19 08:12:00 Test Item Value Reference Range Interpretation Comments Alk Phos (test code = Alk Phos) 98 39-136 [facility] HospitalNdbcvcgMXOATRLZN9840-78-53 08:12:00 Test Item Value Reference Range Interpretation Comments Bili Total (test code = Bili Total) 0.5 0.2-1.3 [facility] HospitalSaomezoMFMSUITRF0608-00-59 08:12:00 Test Item Value Reference Range Interpretation Comments Magnesium Lvl (test code = Magnesium 2.0 1.8-2.4 Lvl) [facility] HospitalZesombhBHHWNSCKW2612-38-89 08:12:00 Test Item Value Reference Range Interpretation Comments Phosphorus (test code = Phosphorus) 3.8 2.5-4.5 [facility]AoxezvhOUXNBNIFLD5257-09-00 08:12:00 Test Item Value Reference Range Interpretation Comments WBC (test code = WBC) 5.6 3.7-10.4 [facility] HospitalAkzqhcmXRNUYZBVDP6040-17-51 08:12:00 Test Item Value Reference Range Interpretation Comments RBC (test code = RBC) 2.44 4.20-5.40 [facility] HospitalUbxiizcRKXZHNQXIT0988-16-03 08:12:00 Test Item Value Reference Range Interpretation Comments MCV (test code = MCV) 96.5 80.0-98.0 [facility] CenterPtzriubLAHCMDDXKW3160-74-59 08:12:00 Test Item Value Reference Range Interpretation Comments MCH (test code = MCH) 32.9 pg 27.0-31.0 [facility] ServicesBycjfcwDTYEVTDUYO6800-32-15 08:12:00 Test Item Value Reference Range Interpretation Comments MCHC (test code = MCHC) 34.0 32.0-36.0 [facility] ServicesXaaqhoxDFZBXBGXVT6462-79-26 08:12:00 Test Item Value Reference Range Interpretation Comments RDW (test code = RDW) 18.4 11.5-14.5 [facility] HospitalWcgleduAHOCOKCILN1703-75-68 08:12:00 Test Item Value Reference Range Interpretation Comments Platelet (test code = Platelet) 241 133-450 [place] 519362-12-16 08:12:00 Test Item Value Reference Range Interpretation Comments MPV (test code = MPV) 7.1 7.4-10.4 [place] 022582-12-16 08:12:00 Test Item Value Reference Range Interpretation Comments Ca Ion WB (test code = Ca Ion WB) 1.17 1.05-1.25 [place] 022582-12-16 08:12:00 Test Item Value Reference Range Interpretation Comments Ca Ion at pH 7.4 WB (test code = Ca Ion 1.16 1.05-1.25 at pH 7.4 WB) [place] 542562-12-16 08:12:00 Test Item Value Reference Range Interpretation Comments Glucose Lvl (test code = Glucose Lvl) 94 70-99 [place] 542562-12-16 08:12:00 Test Item Value Reference Range Interpretation Comments BUN (test code = BUN) 40 7-22 [place] 542562-12-16 08:12:00 Test Item Value Reference Range Interpretation Comments Creatinine Lvl (test code = Creatinine 1.07 0.50-1.40 Lvl) [place] 542562-12-16 08:12:00 Test Item Value Reference Range Interpretation Comments Sodium Lvl (test code = Sodium Lvl) 144 135-145 [place] 542562-12-16 08:12:00 Test Item Value Reference Range Interpretation Comments Potassium Lvl (test code = Potassium 4.6 3.5-5.1 Lvl) [place] 542562-12-16 08:12:00 Test Item Value Reference Range Interpretation Comments Chloride Lvl (test code = Chloride Lvl) 111 95-109 [place] 542562-12-16 08:12:00 Test Item Value Reference Range Interpretation Comments CO2 (test code = CO2) 28 24-32 [place] 542562-12-16 08:12:00 Test Item Value Reference Range Interpretation Comments AGAP (test code = AGAP) 9.6 10.0-20.0 [place] 542562-12-16 08:12:00 Test Item Value Reference Range Interpretation Comments Calcium Lvl (test code = Calcium Lvl) 8.4 8.5-10.5 [place] [address]-12-16 08:12:00 Test Item Value Reference Range Interpretation Comments B/C Ratio (test code = B/C Ratio) 37 1 6-25 [place] [address]-12-16 08:12:00 Test Item Value Reference Range Interpretation Comments Total Protein (test code = Total 5.6 6.4-8.4 Protein) [place] [address]-12-16 08:12:00 Test Item Value Reference Range Interpretation Comments Albumin Lvl (test code = Albumin Lvl) 2.2 3.5-5.0 [place] [address]-12-16 08:12:00 Test Item Value Reference Range Interpretation Comments Globulin (test code = Globulin) 3.4 2.7-4.2 [place] 542562-12-16 08:12:00 Test Item Value Reference Range Interpretation Comments A/G Ratio (test code = A/G Ratio) 0.6 1 0.7-1.6 [place] [address]-12-16 08:12:00 Test Item Value Reference Range Interpretation Comments ALT (test code = ALT) 11 See_Comment [Auto mated message] The system which ge nerated this result transmit rosendo reference range : <=65. The reference range was not used to interpr et this result as josi l/abnormal. [facility] [id number] 08:12:00 Test Item Value Reference Range Interpretation Comments AST (test code = AST) 19 See_Comment [Auto mated message] The system which ge nerated this result transmit rosendo reference range : <=37. The reference range was not used to interpr et this result as josi l/abnormal. [facility] [id number] 08:12:00 Test Item Value Reference Range Interpretation Comments Alk Phos (test code = Alk Phos) 98 39-136 [email or web address] FQFIA2407-41-02 08:12:00 Test Item Value Reference Range Interpretation Comments Bili Total (test code = Bili Total) 0.5 0.2-1.3 [place] [address]-12-16 08:12:00 Test Item Value Reference Range Interpretation Comments eGFR (test code = eGFR) 52 [facility] [id number] 08:12:00 Test Item Value Reference Range Interpretation Comments Magnesium Lvl (test code = Magnesium 2.0 1.8-2.4 Lvl) [facility]2022-12-16 08:12:00 Test Item Value Reference Range Interpretation Comments Phosphorus (test code = Phosphorus) 3.8 2.5-4.5 [place] [address]-12-16 08:12:00 Test Item Value Reference Range Interpretation Comments Ca Ion WB (test code = Ca Ion WB) 1.17 1.05-1.25 [place] [address]-12-16 08:12:00 Test Item Value Reference Range Interpretation Comments Ca Ion at pH 7.4 WB (test code = Ca Ion 1.16 1.05-1.25 at pH 7.4 WB) [place] [address]-12-16 08:12:00 Test Item Value Reference Range Interpretation Comments B/C Ratio (test code = B/C Ratio) 37 1 6-25 [place] [address]-12-16 08:12:00 Test Item Value Reference Range Interpretation Comments Total Protein (test code = Total 5.6 6.4-8.4 Protein) [place] [address]-12-16 08:12:00 Test Item Value Reference Range Interpretation Comments Albumin Lvl (test code = Albumin Lvl) 2.2 3.5-5.0 [place] [address]-12-16 08:12:00 Test Item Value Reference Range Interpretation Comments Globulin (test code = Globulin) 3.4 2.7-4.2 [place] [address]-12-16 08:12:00 Test Item Value Reference Range Interpretation Comments A/G Ratio (test code = A/G Ratio) 0.6 1 0.7-1.6 [place] [address]-12-16 08:12:00 Test Item Value Reference Range Interpretation Comments ALT (test code = ALT) 11 See_Comment [Auto mated message] The system which ge nerated this result transmit rosendo reference range : <=65. The reference range was not used to interpr et this result as josi l/abnormal. [place] [address]-12-16 08:12:00 Test Item Value Reference Range Interpretation Comments AST (test code = AST) 19 See_Comment [Auto mated message] The system which ge nerated this result transmit rosendo reference range : <=37. The reference range was not used to interpr et this result as josi l/abnormal. [facility] HospitalFfrnapcZGLXVIGQQ3799-40-70 08:12:00 Test Item Value Reference Range Interpretation Comments Alk Phos (test code = Alk Phos) 98 39-136 [place] 930682-12-16 08:12:00 Test Item Value Reference Range Interpretation Comments Bili Total (test code = Bili Total) 0.5 0.2-1.3 [place] 930682-12-16 08:12:00 Test Item Value Reference Range Interpretation Comments Magnesium Lvl (test code = Magnesium 2.0 1.8-2.4 Lvl) [facility] HospitalMkgpayrJSIVMUOTQ4087-91-72 08:12:00 Test Item Value Reference Range Interpretation Comments Phosphorus (test code = Phosphorus) 3.8 2.5-4.5 [place] 519362-12-16 08:12:00 Test Item Value Reference Range Interpretation Comments WBC (test code = WBC) 5.6 3.7-10.4 [facility]PkanvunVKUOTQQOZY3182-15-92 08:12:00 Test Item Value Reference Range Interpretation Comments RBC (test code = RBC) 2.44 4.20-5.40 [facility] CenterCltkknoDDPCSLFMYD8370-79-15 08:12:00 Test Item Value Reference Range Interpretation Comments MCV (test code = MCV) 96.5 80.0-98.0 [place] [address]-12-16 08:12:00 Test Item Value Reference Range Interpretation Comments MCH (test code = MCH) 32.9 pg 27.0-31.0 [place] 519362-12-16 08:12:00 Test Item Value Reference Range Interpretation Comments MCHC (test code = MCHC) 34.0 32.0-36.0 [place] [address]-12-16 08:12:00 Test Item Value Reference Range Interpretation Comments RDW (test code = RDW) 18.4 11.5-14.5 [place] 519362-12-16 08:12:00 Test Item Value Reference Range Interpretation Comments Platelet (test code = Platelet) 241 133-450 [facility] CenterGyyyuutROXKBCSOQA8542-02-72 08:12:00 Test Item Value Reference Range Interpretation Comments MPV (test code = MPV) 7.1 7.4-10.4 [place] 022582-12-16 08:12:00 Test Item Value Reference Range Interpretation Comments Ca Ion WB (test code = Ca Ion WB) 1.17 1.05-1.25 [place] 022582-12-16 08:12:00 Test Item Value Reference Range Interpretation Comments Ca Ion at pH 7.4 WB (test code = Ca Ion 1.16 1.05-1.25 at pH 7.4 WB) [place] 542562-12-16 08:12:00 Test Item Value Reference Range Interpretation Comments Glucose Lvl (test code = Glucose Lvl) 94 70-99 [place] 542562-12-16 08:12:00 Test Item Value Reference Range Interpretation Comments BUN (test code = BUN) 40 7-22 [place] 542562-12-16 08:12:00 Test Item Value Reference Range Interpretation Comments Creatinine Lvl (test code = Creatinine 1.07 0.50-1.40 Lvl) [place] 542562-12-16 08:12:00 Test Item Value Reference Range Interpretation Comments Sodium Lvl (test code = Sodium Lvl) 144 135-145 [place] [address]-12-16 08:12:00 Test Item Value Reference Range Interpretation Comments Potassium Lvl (test code = Potassium 4.6 3.5-5.1 Lvl) [place] [address]-12-16 08:12:00 Test Item Value Reference Range Interpretation Comments Chloride Lvl (test code = Chloride Lvl) 111 95-109 [place] 542562-12-16 08:12:00 Test Item Value Reference Range Interpretation Comments CO2 (test code = CO2) 28 24-32 [place] [address]-12-16 08:12:00 Test Item Value Reference Range Interpretation Comments AGAP (test code = AGAP) 9.6 10.0-20.0 [place] 542562-12-16 08:12:00 Test Item Value Reference Range Interpretation Comments Calcium Lvl (test code = Calcium Lvl) 8.4 8.5-10.5 [place] [address]-12-16 08:12:00 Test Item Value Reference Range Interpretation Comments B/C Ratio (test code = B/C Ratio) 37 1 6-25 [email or web address] [id number] 08:12:00 Test Item Value Reference Range Interpretation Comments Total Protein (test code = Total 5.6 6.4-8.4 Protein) [place] 542562-12-16 08:12:00 Test Item Value Reference Range Interpretation Comments Albumin Lvl (test code = Albumin Lvl) 2.2 3.5-5.0 [facility] [id number] 08:12:00 Test Item Value Reference Range Interpretation Comments Globulin (test code = Globulin) 3.4 2.7-4.2 [facility] EHWGK1038-53-98 08:12:00 Test Item Value Reference Range Interpretation Comments A/G Ratio (test code = A/G Ratio) 0.6 1 0.7-1.6 [place] [address]-12-16 08:12:00 Test Item Value Reference Range Interpretation Comments ALT (test code = ALT) 11 See_Comment [Auto mated message] The system which ge nerated this result transmit rosendo reference range : <=65. The reference range was not used to interpr et this result as josi l/abnormal. [email or web address] SCHEG4026-10-19 08:12:00 Test Item Value Reference Range Interpretation Comments AST (test code = AST) 19 See_Comment [Auto mated message] The system which ge nerated this result transmit rosendo reference range : <=37. The reference range was not used to interpr et this result as josi l/abnormal. [facility] GKLXO8727-06-06 08:12:00 Test Item Value Reference Range Interpretation Comments Alk Phos (test code = Alk Phos) 98 39-136 [facility] [id number] 08:12:00 Test Item Value Reference Range Interpretation Comments Bili Total (test code = Bili Total) 0.5 0.2-1.3 [facility] MRBYG5479-91-13 08:12:00 Test Item Value Reference Range Interpretation Comments eGFR (test code = eGFR) 52 [facility] CJYJA0614-58-14 08:12:00 Test Item Value Reference Range Interpretation Comments Magnesium Lvl (test code = Magnesium 2.0 1.8-2.4 Lvl) [facility] [id number] 08:12:00 Test Item Value Reference Range Interpretation Comments Phosphorus (test code = Phosphorus) 3.8 2.5-4.5 [place] [address]-12-16 08:12:00 Test Item Value Reference Range Interpretation Comments Ca Ion WB (test code = Ca Ion WB) 1.17 1.05-1.25 [place] 930682-12-16 08:12:00 Test Item Value Reference Range Interpretation Comments Ca Ion at pH 7.4 WB (test code = Ca Ion 1.16 1.05-1.25 at pH 7.4 WB) [place] 930682-12-16 08:12:00 Test Item Value Reference Range Interpretation Comments B/C Ratio (test code = B/C Ratio) 37 1 6-25 [place] [address]-12-16 08:12:00 Test Item Value Reference Range Interpretation Comments Total Protein (test code = Total 5.6 6.4-8.4 Protein) [place] 930682-12-16 08:12:00 Test Item Value Reference Range Interpretation Comments Albumin Lvl (test code = Albumin Lvl) 2.2 3.5-5.0 [place] 930682-12-16 08:12:00 Test Item Value Reference Range Interpretation Comments Globulin (test code = Globulin) 3.4 2.7-4.2 [facility]FztsbobNQAREZMJE1611-61-94 08:12:00 Test Item Value Reference Range Interpretation Comments A/G Ratio (test code = A/G Ratio) 0.6 1 0.7-1.6 [place] [address]-12-16 08:12:00 Test Item Value Reference Range Interpretation Comments ALT (test code = ALT) 11 See_Comment [Auto mated message] The system which ge nerated this result transmit rosendo reference range : <=65. The reference range was not used to interpr et this result as josi l/abnormal. [place] 930682-12-16 08:12:00 Test Item Value Reference Range Interpretation Comments AST (test code = AST) 19 See_Comment [Auto mated message] The system which ge nerated this result transmit rosendo reference range : <=37. The reference range was not used to interpr et this result as josi l/abnormal. [place] [address]-12-16 08:12:00 Test Item Value Reference Range Interpretation Comments Alk Phos (test code = Alk Phos) 98 39-136 [facility] ResourcesFklzgxbSRNMLNWTP5690-09-84 08:12:00 Test Item Value Reference Range Interpretation Comments Bili Total (test code = Bili Total) 0.5 0.2-1.3 [facility] ResourcesZwrtiluGWRFVKBBG5325-35-92 08:12:00 Test Item Value Reference Range Interpretation Comments Magnesium Lvl (test code = Magnesium 2.0 1.8-2.4 Lvl) [facility] ResourcesQotulzyQWEKSLSRD5473-29-58 08:12:00 Test Item Value Reference Range Interpretation Comments Phosphorus (test code = Phosphorus) 3.8 2.5-4.5 [facility] ResourcesBoyuhmfYKBWETDBMT1958-06-76 08:12:00 Test Item Value Reference Range Interpretation Comments WBC (test code = WBC) 5.6 3.7-10.4 [facility] ResourcesIoiinloQGHVWUZIRU5100-17-15 08:12:00 Test Item Value Reference Range Interpretation Comments RBC (test code = RBC) 2.44 4.20-5.40 [facility] HospitalZhvbgfzGJBCKRTGVU9254-84-34 08:12:00 Test Item Value Reference Range Interpretation Comments MCV (test code = MCV) 96.5 80.0-98.0 [facility] ResourcesBjthkbaAVRIBIPPCV0517-56-84 08:12:00 Test Item Value Reference Range Interpretation Comments MCH (test code = MCH) 32.9 pg 27.0-31.0 [facility] ResourcesQqkpyrzKIXPEXHNPR2215-47-87 08:12:00 Test Item Value Reference Range Interpretation Comments MCHC (test code = MCHC) 34.0 32.0-36.0 [facility] HospitalHpzbhmlFLHIOSAAQQ7859-70-22 08:12:00 Test Item Value Reference Range Interpretation Comments RDW (test code = RDW) 18.4 11.5-14.5 [facility] ResourcesJwxqmzuSSKTUWRBAX2471-44-82 08:12:00 Test Item Value Reference Range Interpretation Comments Platelet (test code = Platelet) 241 133-450 [facility] HospitalOfmeontNZIZGDBZCW9618-67-23 08:12:00 Test Item Value Reference Range Interpretation Comments MPV (test code = MPV) 7.1 7.4-10.4 [facility]PAR[facility]YROID [id number] 08:12:00 Test Item Value Reference Range Interpretation Comments Ca Ion WB (test code = Ca Ion WB) 1.17 1.05-1.25 [facility]PARATHYROID JSNHHXD5507-38-14 08:12:00 Test Item Value Reference Range Interpretation Comments Ca Ion at pH 7.4 WB (test code = Ca Ion 1.16 1.05-1.25 at pH 7.4 WB) [place] 542562-12-16 08:12:00 Test Item Value Reference Range Interpretation Comments Glucose Lvl (test code = Glucose Lvl) 94 70-99 [place] 542562-12-16 08:12:00 Test Item Value Reference Range Interpretation Comments BUN (test code = BUN) 40 7-22 [place] 542562-12-16 08:12:00 Test Item Value Reference Range Interpretation Comments Creatinine Lvl (test code = Creatinine 1.07 0.50-1.40 Lvl) [facility]2022-12-16 08:12:00 Test Item Value Reference Range Interpretation Comments Sodium Lvl (test code = Sodium Lvl) 144 135-145 [place] 542562-12-16 08:12:00 Test Item Value Reference Range Interpretation Comments Potassium Lvl (test code = Potassium 4.6 3.5-5.1 Lvl) [place] 542562-12-16 08:12:00 Test Item Value Reference Range Interpretation Comments Chloride Lvl (test code = Chloride Lvl) 111 95-109 [place] 542562-12-16 08:12:00 Test Item Value Reference Range Interpretation Comments CO2 (test code = CO2) 28 24-32 [place] 542562-12-16 08:12:00 Test Item Value Reference Range Interpretation Comments AGAP (test code = AGAP) 9.6 10.0-20.0 [place] 542562-12-16 08:12:00 Test Item Value Reference Range Interpretation Comments Calcium Lvl (test code = Calcium Lvl) 8.4 8.5-10.5 [place] 542562-12-16 08:12:00 Test Item Value Reference Range Interpretation Comments B/C Ratio (test code = B/C Ratio) 37 1 6-25 [place] 542562-12-16 08:12:00 Test Item Value Reference Range Interpretation Comments Total Protein (test code = Total 5.6 6.4-8.4 Protein) [place] 542562-12-16 08:12:00 Test Item Value Reference Range Interpretation Comments Albumin Lvl (test code = Albumin Lvl) 2.2 3.5-5.0 [place] 542562-12-16 08:12:00 Test Item Value Reference Range Interpretation Comments Globulin (test code = Globulin) 3.4 2.7-4.2 [place] 542562-12-16 08:12:00 Test Item Value Reference Range Interpretation Comments A/G Ratio (test code = A/G Ratio) 0.6 1 0.7-1.6 [facility] [id number] 08:12:00 Test Item Value Reference Range Interpretation Comments ALT (test code = ALT) 11 See_Comment [Auto mated message] The system which ge nerated this result transmit rosendo reference range : <=65. The reference range was not used to interpr et this result as josi l/abnormal. [facility] [id number] 08:12:00 Test Item Value Reference Range Interpretation Comments AST (test code = AST) 19 See_Comment [Auto mated message] The system which ge nerated this result transmit rosendo reference range : <=37. The reference range was not used to interpr et this result as josi l/abnormal. [facility] [id number] 08:12:00 Test Item Value Reference Range Interpretation Comments Alk Phos (test code = Alk Phos) 98 39-136 [facility] ZYYLY3076-26-88 08:12:00 Test Item Value Reference Range Interpretation Comments Bili Total (test code = Bili Total) 0.5 0.2-1.3 [facility] [id number] 08:12:00 Test Item Value Reference Range Interpretation Comments eGFR (test code = eGFR) 52 [facility] [id number] 08:12:00 Test Item Value Reference Range Interpretation Comments Magnesium Lvl (test code = Magnesium 2.0 1.8-2.4 Lvl) [place] 542562-12-16 08:12:00 Test Item Value Reference Range Interpretation Comments Phosphorus (test code = Phosphorus) 3.8 2.5-4.5 [address]12-16 08:12:00 Test Item Value Reference Range Interpretation Comments Ca Ion WB (test code = Ca Ion WB) 1.17 1.05-1.25 [place] 930682-12-16 08:12:00 Test Item Value Reference Range Interpretation Comments Ca Ion at pH 7.4 WB (test code = Ca Ion 1.16 1.05-1.25 at pH 7.4 WB) [facility]NHJYMNSVX8025[facility] 08:12:00 Test Item Value Reference Range Interpretation Comments B/C Ratio (test code = B/C Ratio) 37 1 6-25 [place] 930682-12-16 08:12:00 Test Item Value Reference Range Interpretation Comments Total Protein (test code = Total 5.6 6.4-8.4 Protein) [facility] HospitalWsllbnpYESCYYTOJ1803-87-36 08:12:00 Test Item Value Reference Range Interpretation Comments Albumin Lvl (test code = Albumin Lvl) 2.2 3.5-5.0 [facility] HospitalDznsdjtKZTEHCQHX3660-30-34 08:12:00 Test Item Value Reference Range Interpretation Comments Globulin (test code = Globulin) 3.4 2.7-4.2 [facility] HospitalNfwjrynYIULNNDHV1979-18-56 08:12:00 Test Item Value Reference Range Interpretation Comments A/G Ratio (test code = A/G Ratio) 0.6 1 0.7-1.6 [place] 930682-12-16 08:12:00 Test Item Value Reference Range Interpretation Comments ALT (test code = ALT) 11 See_Comment [Auto mated message] The system which nerated this result transmit rosendo reference range : <=65. The reference range was not used to interpr et this result as josi l/abnormal. [facility] HospitalZshkqjuKBELEZKTP7275-76-37 08:12:00 Test Item Value Reference Range Interpretation Comments AST (test code = AST) 19 See_Comment [Auto mated message] The system which VB Rags nerated this result transmit rsoendo reference range : <=37. The reference range was not used to interpr et this result as josi l/abnormal. [facility] HospitalWxzajzaCOIEPRKVU0505-17-47 08:12:00 Test Item Value Reference Range Interpretation Comments Alk Phos (test code = Alk Phos) 98 39-136 [place] [address]-12-16 08:12:00 Test Item Value Reference Range Interpretation Comments Bili Total (test code = Bili Total) 0.5 0.2-1.3 [facility] HospitalVvhbnjyNEKQHKKQN5151-10-85 08:12:00 Test Item Value Reference Range Interpretation Comments Magnesium Lvl (test code = Magnesium 2.0 1.8-2.4 Lvl) [facility] HospitalSzitzcfZBXOCPYYF8617-35-31 08:12:00 Test Item Value Reference Range Interpretation Comments Phosphorus (test code = Phosphorus) 3.8 2.5-4.5 [facility]FdsrdqsLMPOOHLFCO6252-29-96 08:12:00 Test Item Value Reference Range Interpretation Comments WBC (test code = WBC) 5.6 3.7-10.4 [facility] CenterUeiuyyjROZWKOEWFM0952-48-33 08:12:00 Test Item Value Reference Range Interpretation Comments RBC (test code = RBC) 2.44 4.20-5.40 [facility] CenterFzprjccOHHSZQRPPY4441-36-06 08:12:00 Test Item Value Reference Range Interpretation Comments MCV (test code = MCV) 96.5 80.0-98.0 [facility] CenterUhjkfenXDGYIWGVMS0968-23-04 08:12:00 Test Item Value Reference Range Interpretation Comments MCH (test code = MCH) 32.9 pg 27.0-31.0 [facility] CenterUrjkwcfOMLPRVMHXM7460-59-78 08:12:00 Test Item Value Reference Range Interpretation Comments MCHC (test code = MCHC) 34.0 32.0-36.0 [facility] CenterGkfuwenOXEAQNIGRX3330-10-73 08:12:00 Test Item Value Reference Range Interpretation Comments RDW (test code = RDW) 18.4 11.5-14.5 [facility] CenterBcrxmypRRDAPHLPMA9040-11-09 08:12:00 Test Item Value Reference Range Interpretation Comments Platelet (test code = Platelet) 241 133-450 [facility] CenterHpzaqbsOASFYWZNSY8724-26-08 08:12:00 Test Item Value Reference Range Interpretation Comments MPV (test code = MPV) 7.1 7.4-10.4 [facility] ResourcesannPARATHYROID RNEUJBJ5745-48-25 08:12:00 Test Item Value Reference Range Interpretation Comments Ca Ion WB (test code = Ca Ion WB) 1.17 1.05-1.25 [facility] ResourcesannPARATHYDUSTIN VILLE 55073WULYHRL0081-66-22 08:12:00 Test Item Value Reference Range Interpretation Comments Ca Ion at pH 7.4 WB (test code = Ca Ion 1.16 1.05-1.25 at pH 7.4 WB) [place] 542562-12-16 08:12:00 Test Item Value Reference Range Interpretation Comments Glucose Lvl (test code = Glucose Lvl) 94 70-99 [place] 542562-12-16 08:12:00 Test Item Value Reference Range Interpretation Comments BUN (test code = BUN) 40 7-22 [place] 542562-12-16 08:12:00 Test Item Value Reference Range Interpretation Comments Creatinine Lvl (test code = Creatinine 1.07 0.50-1.40 Lvl) [place] [address]-12-16 08:12:00 Test Item Value Reference Range Interpretation Comments Sodium Lvl (test code = Sodium Lvl) 144 135-145 [place] 542562-12-16 08:12:00 Test Item Value Reference Range Interpretation Comments Potassium Lvl (test code = Potassium 4.6 3.5-5.1 Lvl) [place] 542562-12-16 08:12:00 Test Item Value Reference Range Interpretation Comments Chloride Lvl (test code = Chloride Lvl) 111 95-109 [place] 542562-12-16 08:12:00 Test Item Value Reference Range Interpretation Comments CO2 (test code = CO2) 28 24-32 [place] [address]-12-16 08:12:00 Test Item Value Reference Range Interpretation Comments AGAP (test code = AGAP) 9.6 10.0-20.0 [place] 542562-12-16 08:12:00 Test Item Value Reference Range Interpretation Comments Calcium Lvl (test code = Calcium Lvl) 8.4 8.5-10.5 [place] 542562-12-16 08:12:00 Test Item Value Reference Range Interpretation Comments B/C Ratio (test code = B/C Ratio) 37 1 6-25 [place] [address]-12-16 08:12:00 Test Item Value Reference Range Interpretation Comments Total Protein (test code = Total 5.6 6.4-8.4 Protein) [place] 542562-12-16 08:12:00 Test Item Value Reference Range Interpretation Comments Albumin Lvl (test code = Albumin Lvl) 2.2 3.5-5.0 [place] 542562-12-16 08:12:00 Test Item Value Reference Range Interpretation Comments Globulin (test code = Globulin) 3.4 2.7-4.2 [place] [address]-12-16 08:12:00 Test Item Value Reference Range Interpretation Comments A/G Ratio (test code = A/G Ratio) 0.6 1 0.7-1.6 [place] [address]-12-16 08:12:00 Test Item Value Reference Range Interpretation Comments ALT (test code = ALT) 11 See_Comment [Auto mated message] The system which ge nerated this result transmit rosendo reference range : <=65. The reference range was not used to interpr et this result as josi l/abnormal. [address]12-16 08:12:00 Test Item Value Reference Range Interpretation Comments AST (test code = AST) 19 See_Comment [Auto mated message] The system which ge nerated this result transmit rosendo reference range : <=37. The reference range was not used to interpr et this result as josi l/abnormal. [place] 542562-12-16 08:12:00 Test Item Value Reference Range Interpretation Comments Alk Phos (test code = Alk Phos) 98 39-136 [place] [address]-12-16 08:12:00 Test Item Value Reference Range Interpretation Comments Bili Total (test code = Bili Total) 0.5 0.2-1.3 [place] [address]-12-16 08:12:00 Test Item Value Reference Range Interpretation Comments eGFR (test code = eGFR) 52 [place] [address]-12-16 08:12:00 Test Item Value Reference Range Interpretation Comments Magnesium Lvl (test code = Magnesium 2.0 1.8-2.4 Lvl) [place] [address]-12-16 08:12:00 Test Item Value Reference Range Interpretation Comments Phosphorus (test code = Phosphorus) 3.8 2.5-4.[address]12-16 08:12:00 Test Item Value Reference Range Interpretation Comments Ca Ion WB (test code = Ca Ion WB) 1.17 1.05-1.25 [facility] HospitalSvwvtjaTOQIGRXRD6673-97-33 08:12:00 Test Item Value Reference Range Interpretation Comments Ca Ion at pH 7.4 WB (test code = Ca Ion 1.16 1.05-1.25 at pH 7.4 WB) [facility] HospitalEuiqnudVWCDMQLYI1347-31-23 08:12:00 Test Item Value Reference Range Interpretation Comments B/C Ratio (test code = B/C Ratio) 37 1 6-25 [place] 930682-12-16 08:12:00 Test Item Value Reference Range Interpretation Comments Total Protein (test code = Total 5.6 6.4-8.4 Protein) [facility] HospitalSjmmnwtIEIMHNCUC6697-13-79 08:12:00 Test Item Value Reference Range Interpretation Comments Albumin Lvl (test code = Albumin Lvl) 2.2 3.5-5.0 [place] 930682-12-16 08:12:00 Test Item Value Reference Range Interpretation Comments Globulin (test code = Globulin) 3.4 2.7-4.2 [facility] HospitalBtqnshuAVUWMCSMF9809-80-17 08:12:00 Test Item Value Reference Range Interpretation Comments A/G Ratio (test code = A/G Ratio) 0.6 1 0.7-1.6 [facility] HospitalGmpkxdvMEGIXELDP5708-15-46 08:12:00 Test Item Value Reference Range Interpretation Comments ALT (test code = ALT) 11 See_Comment [Auto mated message] The system which ge nerated this result transmit rosendo reference range : <=65. The reference range was not used to interpr et this result as josi l/abnormal. [facility] HospitalSetxtiqCUGVEPHPP6111-09-55 08:12:00 Test Item Value Reference Range Interpretation Comments AST (test code = AST) 19 See_Comment [Auto mated message] The system which ge nerated this result transmit rosendo reference range : <=37. The reference range was not used to interpr et this result as josi l/abnormal. [facility] HospitalIlccrrjEYZMJRAUY5273-99-91 08:12:00 Test Item Value Reference Range Interpretation Comments Alk Phos (test code = Alk Phos) 98 39-136 [facility] HospitalMdszrwjUKXWJOVZG9598-38-38 08:12:00 Test Item Value Reference Range Interpretation Comments Bili Total (test code = Bili Total) 0.5 0.2-1.3 [facility] HospitalTxguoqwBAQLQHLDL0408-99-13 08:12:00 Test Item Value Reference Range Interpretation Comments Magnesium Lvl (test code = Magnesium 2.0 1.8-2.4 Lvl) [facility] HospitalFgnzyqcTCPPHHFMH3068-11-87 08:12:00 Test Item Value Reference Range Interpretation Comments Phosphorus (test code = Phosphorus) 3.8 2.5-4.5 [facility] CenterZiffgsvFZKIHLILVA5156-63-04 08:12:00 Test Item Value Reference Range Interpretation Comments WBC (test code = WBC) 5.6 3.7-10.4 [facility] CenterQsnqhuwAMUHFVVXZO5821-89-51 08:12:00 Test Item Value Reference Range Interpretation Comments RBC (test code = RBC) 2.44 4.20-5.40 [facility] CenterAkqztraNHJUDIEMKC0226-08-42 08:12:00 Test Item Value Reference Range Interpretation Comments MCV (test code = MCV) 96.5 80.0-98.0 [facility] CenterCqymesePPMZLCHUGU7773-25-24 08:12:00 Test Item Value Reference Range Interpretation Comments MCH (test code = MCH) 32.9 pg 27.0-31.0 [facility] CenterZjaaxhgSGGNDAOFUF3367-66-43 08:12:00 Test Item Value Reference Range Interpretation Comments MCHC (test code = MCHC) 34.0 32.0-36.0 [facility] CenterWedxearYUTTLVAQRN1500-21-64 08:12:00 Test Item Value Reference Range Interpretation Comments RDW (test code = RDW) 18.4 11.5-14.5 [facility] CenterEgxcgptYJMLBGFIMO5815-50-64 08:12:00 Test Item Value Reference Range Interpretation Comments Platelet (test code = Platelet) 241 133-450 [facility] CenterCzteshoNRXYWJMAMO9641-60-12 08:12:00 Test Item Value Reference Range Interpretation Comments MPV (test code = MPV) 7.1 7.4-10.4 [facility] ResourcesannPARATHYROID AELGIKD2291-85-95 08:12:00 Test Item Value Reference Range Interpretation Comments Ca Ion WB (test code = Ca Ion WB) 1.17 1.05-1.25 [facility]PAR[facility]RO[facility] TAEJVAK5939-88-60 08:12:00 Test Item Value Reference Range Interpretation Comments Ca Ion at pH 7.4 WB (test code = Ca Ion 1.16 1.05-1.25 at pH 7.4 WB) [place] 542562-12-16 08:12:00 Test Item Value Reference Range Interpretation Comments Glucose Lvl (test code = Glucose Lvl) 94 70-99 [place] 542562-12-16 08:12:00 Test Item Value Reference Range Interpretation Comments BUN (test code = BUN) 40 7-22 [place] 542562-12-16 08:12:00 Test Item Value Reference Range Interpretation Comments Creatinine Lvl (test code = Creatinine 1.07 0.50-1.40 Lvl) [place] 542562-12-16 08:12:00 Test Item Value Reference Range Interpretation Comments Sodium Lvl (test code = Sodium Lvl) 144 135-145 [place] 542562-12-16 08:12:00 Test Item Value Reference Range Interpretation Comments Potassium Lvl (test code = Potassium 4.6 3.5-5.1 Lvl) [place] 542562-12-16 08:12:00 Test Item Value Reference Range Interpretation Comments Chloride Lvl (test code = Chloride Lvl) 111 95-109 [place] 542562-12-16 08:12:00 Test Item Value Reference Range Interpretation Comments CO2 (test code = CO2) 28 24-32 [place] 542562-12-16 08:12:00 Test Item Value Reference Range Interpretation Comments AGAP (test code = AGAP) 9.6 10.0-20.0 [place] 542562-12-16 08:12:00 Test Item Value Reference Range Interpretation Comments Calcium Lvl (test code = Calcium Lvl) 8.4 8.5-10.5 [place] 542562-12-16 08:12:00 Test Item Value Reference Range Interpretation Comments B/C Ratio (test code = B/C Ratio) 37 1 6-25 [place] 542562-12-16 08:12:00 Test Item Value Reference Range Interpretation Comments Total Protein (test code = Total 5.6 6.4-8.4 Protein) [place] 542562-12-16 08:12:00 Test Item Value Reference Range Interpretation Comments Albumin Lvl (test code = Albumin Lvl) 2.2 3.5-5.0 [place] 542562-12-16 08:12:00 Test Item Value Reference Range Interpretation Comments Globulin (test code = Globulin) 3.4 2.7-4.2 [place] [address]-12-16 08:12:00 Test Item Value Reference Range Interpretation Comments A/G Ratio (test code = A/G Ratio) 0.6 1 0.7-1.6 [facility] FLLZV6276-10-03 08:12:00 Test Item Value Reference Range Interpretation Comments ALT (test code = ALT) 11 See_Comment [Auto mated message] The system which ge nerated this result transmit rosendo reference range : <=65. The reference range was not used to interpr et this result as josi l/abnormal. [facility] PFTNY9676-68-01 08:12:00 Test Item Value Reference Range Interpretation Comments AST (test code = AST) 19 See_Comment [Auto mated message] The system which ge nerated this result transmit rosendo reference range : <=37. The reference range was not used to interpr et this result as josi l/abnormal. [facility] IEXXV7777-17-51 08:12:00 Test Item Value Reference Range Interpretation Comments Alk Phos (test code = Alk Phos) 98 39-136 [facility] ADMDP6590-17-26 08:12:00 Test Item Value Reference Range Interpretation Comments Bili Total (test code = Bili Total) 0.5 0.2-1.3 [facility] HYRVD6087-24-97 08:12:00 Test Item Value Reference Range Interpretation Comments eGFR (test code = eGFR) 52 [facility] RUGFZ5012-13-75 08:12:00 Test Item Value Reference Range Interpretation Comments Magnesium Lvl (test code = Magnesium 2.0 1.8-2.4 Lvl) [facility] RQYMX6092-66-35 08:12:00 Test Item Value Reference Range Interpretation Comments Phosphorus (test code = Phosphorus) 3.8 2.5-4.5 [place] [address]-12-16 08:12:00 Test Item Value Reference Range Interpretation Comments Ca Ion WB (test code = Ca Ion WB) 1.17 1.05-1.25 [facility] ResourcesBgjhqrwDMUVPBYDW1603-40-33 08:12:00 Test Item Value Reference Range Interpretation Comments Ca Ion at pH 7.4 WB (test code = Ca Ion 1.16 1.05-1.25 at pH 7.4 WB) [facility] HospitalNsvvnimUHXJNDLIP1632-79-49 08:12:00 Test Item Value Reference Range Interpretation Comments B/C Ratio (test code = B/C Ratio) 37 1 6-25 [place] 930682-12-16 08:12:00 Test Item Value Reference Range Interpretation Comments Total Protein (test code = Total 5.6 6.4-8.4 Protein) [facility] HospitalRgaivroPBKEBJTYA7870-10-57 08:12:00 Test Item Value Reference Range Interpretation Comments Albumin Lvl (test code = Albumin Lvl) 2.2 3.5-5.0 [facility] ResourcesUylwujzPJJHGITJJ9943-14-95 08:12:00 Test Item Value Reference Range Interpretation Comments Globulin (test code = Globulin) 3.4 2.7-4.2 [facility] HospitalZrxrfakPANDVOZKW6747-62-64 08:12:00 Test Item Value Reference Range Interpretation Comments A/G Ratio (test code = A/G Ratio) 0.6 1 0.7-1.6 [place] [address]-12-16 08:12:00 Test Item Value Reference Range Interpretation Comments ALT (test code = ALT) 11 See_Comment [Auto mated message] The system which ge nerated this result transmit rosendo reference range : <=65. The reference range was not used to interpr et this result as josi l/abnormal. [facility] ResourcesPugxmleUNBUEEJKS2448-99-90 08:12:00 Test Item Value Reference Range Interpretation Comments AST (test code = AST) 19 See_Comment [Auto mated message] The system which ge nerated this result transmit rosendo reference range : <=37. The reference range was not used to interpr et this result as josi l/abnormal. [facility] ResourcesUketfttEAHSDMVCT2706-26-34 08:12:00 Test Item Value Reference Range Interpretation Comments Alk Phos (test code = Alk Phos) 98 39-136 [facility] HospitalDmoewczVPGIEXSEF0768-90-06 08:12:00 Test Item Value Reference Range Interpretation Comments Bili Total (test code = Bili Total) 0.5 0.2-1.3 [facility] ResourcesIftorpbOQHIYMKJG1621-44-08 08:12:00 Test Item Value Reference Range Interpretation Comments Magnesium Lvl (test code = Magnesium 2.0 1.8-2.4 Lvl) [facility] HospitalXdknmebYJHJLISBJ5022-92-01 08:12:00 Test Item Value Reference Range Interpretation Comments Phosphorus (test code = Phosphorus) 3.8 2.5-4.5 [facility] CenterMakbitsWWMEWPQRUW0314-94-95 08:12:00 Test Item Value Reference Range Interpretation Comments WBC (test code = WBC) 5.6 3.7-10.4 [facility] CenterQfvdmzgFXKTIYEFTX1239-16-88 08:12:00 Test Item Value Reference Range Interpretation Comments RBC (test code = RBC) 2.44 4.20-5.40 [facility] CenterBypsvliCNYLUXBZNJ0415-41-23 08:12:00 Test Item Value Reference Range Interpretation Comments MCV (test code = MCV) 96.5 80.0-98.0 [facility] CenterTrrebtmSEGSCMBTMH2509-95-18 08:12:00 Test Item Value Reference Range Interpretation Comments MCH (test code = MCH) 32.9 pg 27.0-31.0 [facility] CenterDrxmzauUMJHSIADXE5410-93-77 08:12:00 Test Item Value Reference Range Interpretation Comments MCHC (test code = MCHC) 34.0 32.0-36.0 [facility] CenterWxzfuvdZQBSVFDHCK9334-77-64 08:12:00 Test Item Value Reference Range Interpretation Comments RDW (test code = RDW) 18.4 11.5-14.5 [facility] CenterSvhaqufICAZWKSWNK0572-92-23 08:12:00 Test Item Value Reference Range Interpretation Comments Platelet (test code = Platelet) 241 133-450 [facility] CenterCohzscxTHUPBPIHXU5316-63-61 08:12:00 Test Item Value Reference Range Interpretation Comments MPV (test code = MPV) 7.1 7.4-10.4 [facility]PAR[facility] IHWTTNF8014-36-29 08:12:00 Test Item Value Reference Range Interpretation Comments Ca Ion WB (test code = Ca Ion WB) 1.17 1.05-1.25 [facility] WVINWOH8728-51-05 08:12:00 Test Item Value Reference Range Interpretation Comments Ca Ion at pH 7.4 WB (test code = Ca Ion 1.16 1.05-1.25 at pH 7.4 WB) [facility]2022-12-16 08:12:00 Test Item Value Reference Range Interpretation Comments Glucose Lvl (test code = Glucose Lvl) 94 70-99 [place] 542562-12-16 08:12:00 Test Item Value Reference Range Interpretation Comments BUN (test code = BUN) 40 7-22 [place] 542562-12-16 08:12:00 Test Item Value Reference Range Interpretation Comments Creatinine Lvl (test code = Creatinine 1.07 0.50-1.40 Lvl) [place] 542562-12-16 08:12:00 Test Item Value Reference Range Interpretation Comments Sodium Lvl (test code = Sodium Lvl) 144 135-145 [place] 542562-12-16 08:12:00 Test Item Value Reference Range Interpretation Comments Potassium Lvl (test code = Potassium 4.6 3.5-5.1 Lvl) [place] 542562-12-16 08:12:00 Test Item Value Reference Range Interpretation Comments Chloride Lvl (test code = Chloride Lvl) 111 95-109 [place] 542562-12-16 08:12:00 Test Item Value Reference Range Interpretation Comments CO2 (test code = CO2) 28 24-32 [place] 542562-12-16 08:12:00 Test Item Value Reference Range Interpretation Comments AGAP (test code = AGAP) 9.6 10.0-20.0 [place] 542562-12-16 08:12:00 Test Item Value Reference Range Interpretation Comments Calcium Lvl (test code = Calcium Lvl) 8.4 8.5-10.5 [place] 542562-12-16 08:12:00 Test Item Value Reference Range Interpretation Comments B/C Ratio (test code = B/C Ratio) 37 1 6-25 [place] 542562-12-16 08:12:00 Test Item Value Reference Range Interpretation Comments Total Protein (test code = Total 5.6 6.4-8.4 Protein) [place] 542562-12-16 08:12:00 Test Item Value Reference Range Interpretation Comments Albumin Lvl (test code = Albumin Lvl) 2.2 3.5-5.0 [place] 542562-12-16 08:12:00 Test Item Value Reference Range Interpretation Comments Globulin (test code = Globulin) 3.4 2.7-4.2 [facility] ResourcesSaperionJERRY VILLE 55396XXVEB2704-13-18 08:12:00 Test Item Value Reference Range Interpretation Comments A/G Ratio (test code = A/G Ratio) 0.6 1 0.7-1.6 [place] [address]-12-16 08:12:00 Test Item Value Reference Range Interpretation Comments ALT (test code = ALT) 11 See_Comment [Auto mated message] The system which ge nerated this result transmit rosendo reference range : <=65. The reference range was not used to interpr et this result as josi l/abnormal. [email or web address] [id number] 08:12:00 Test Item Value Reference Range Interpretation Comments AST (test code = AST) 19 See_Comment [Auto mated message] The system which ge nerated this result transmit rosendo reference range : <=37. The reference range was not used to interpr et this result as josi l/abnormal. [facility] [id number] 08:12:00 Test Item Value Reference Range Interpretation Comments Alk Phos (test code = Alk Phos) 98 39-136 [facility] [id number] 08:12:00 Test Item Value Reference Range Interpretation Comments Bili Total (test code = Bili Total) 0.5 0.2-1.3 [facility] [id number] 08:12:00 Test Item Value Reference Range Interpretation Comments eGFR (test code = eGFR) 52 [facility] PWJYE1231-23-03 08:12:00 Test Item Value Reference Range Interpretation Comments Magnesium Lvl (test code = Magnesium 2.0 1.8-2.4 Lvl) [facility] [id number] 08:12:00 Test Item Value Reference Range Interpretation Comments Phosphorus (test code = Phosphorus) 3.8 2.5-4.5 [place] [address]-12-16 08:12:00 Test Item Value Reference Range Interpretation Comments Ca Ion WB (test code = Ca Ion WB) 1.17 1.05-1.[address]12-16 08:12:00 Test Item Value Reference Range Interpretation Comments Ca Ion at pH 7.4 WB (test code = Ca Ion 1.16 1.05-1.25 at pH 7.4 WB) [address]12-16 08:12:00 Test Item Value Reference Range Interpretation Comments B/C Ratio (test code = B/C Ratio) 37 1 6-25 [place] 930682-12-16 08:12:00 Test Item Value Reference Range Interpretation Comments Total Protein (test code = Total 5.6 6.4-8.4 Protein) [facility]jpudovUFZBURPDA4784-90-68 08:12:00 Test Item Value Reference Range Interpretation Comments Albumin Lvl (test code = Albumin Lvl) 2.2 3.5-5.0 [place] 930682-12-16 08:12:00 Test Item Value Reference Range Interpretation Comments Globulin (test code = Globulin) 3.4 2.7-4.2 [facility] HospitalPmuwtcwMRICRSNXM9961-61-34 08:12:00 Test Item Value Reference Range Interpretation Comments A/G Ratio (test code = A/G Ratio) 0.6 1 0.7-1.6 [place] 930682-12-16 08:12:00 Test Item Value Reference Range Interpretation Comments ALT (test code = ALT) 11 See_Comment [Auto mated message] The system which ge nerated this result transmit rosendo reference range : <=65. The reference range was not used to interpr et this result as josi l/abnormal. [facility] HospitalBbmkmygVBSDQYFGT8061-17-40 08:12:00 Test Item Value Reference Range Interpretation Comments AST (test code = AST) 19 See_Comment [Auto mated message] The system which ge nerated this result transmit rosendo reference range : <=37. The reference range was not used to interpr et this result as josi l/abnormal. [facility] HospitalOqcymqhKMOKXVEIW3749-65-29 08:12:00 Test Item Value Reference Range Interpretation Comments Alk Phos (test code = Alk Phos) 98 39-136 [facility] HospitalSjktxkyAQLQAWDNQ0560-70-29 08:12:00 Test Item Value Reference Range Interpretation Comments Bili Total (test code = Bili Total) 0.5 0.2-1.3 [place] 930682-12-16 08:12:00 Test Item Value Reference Range Interpretation Comments Magnesium Lvl (test code = Magnesium 2.0 1.8-2.4 Lvl) [facility] HospitalVeuovsaMHQINGVZT7435-28-51 08:12:00 Test Item Value Reference Range Interpretation Comments Phosphorus (test code = Phosphorus) 3.8 2.5-4.5 [facility]HewlbanEMHQUOPWJL5823-77-77 08:12:00 Test Item Value Reference Range Interpretation Comments WBC (test code = WBC) 5.6 3.7-10.4 [place] 519362-12-16 08:12:00 Test Item Value Reference Range Interpretation Comments RBC (test code = RBC) 2.44 4.20-5.40 [facility] CenterBpbtqurWCGDZFHXSE5082-42-64 08:12:00 Test Item Value Reference Range Interpretation Comments MCV (test code = MCV) 96.5 80.0-98.0 [facility] CenterVmbwdciGLQKYNSUQZ7040-66-19 08:12:00 Test Item Value Reference Range Interpretation Comments MCH (test code = MCH) 32.9 pg 27.0-31.0 [facility] CenterKykpwpnJMICVCNUUT3897-31-20 08:12:00 Test Item Value Reference Range Interpretation Comments MCHC (test code = MCHC) 34.0 32.0-36.0 [facility] CenterKmmespdZAEIRQVZPS2051-36-11 08:12:00 Test Item Value Reference Range Interpretation Comments RDW (test code = RDW) 18.4 11.5-14.5 [facility] CenterJasueecPTPTTTBNCP6187-46-03 08:12:00 Test Item Value Reference Range Interpretation Comments Platelet (test code = Platelet) 241 133-450 [facility] CenterOsaznzaMHITANSZNP0277-67-51 08:12:00 Test Item Value Reference Range Interpretation Comments MPV (test code = MPV) 7.1 7.4-10.4 [facility] HospitalPARATHYROID [id number] 08:12:00 Test Item Value Reference Range Interpretation Comments Ca Ion WB (test code = Ca Ion WB) 1.17 1.05-1.25 [facility]PARAM[facility]ITALRO[facility] [id number] 08:12:00 Test Item Value Reference Range Interpretation Comments Ca Ion at pH 7.4 WB (test code = Ca Ion 1.16 1.05-1.25 at pH 7.4 WB) [facility]2022-12-16 08:12:00 Test Item Value Reference Range Interpretation Comments Glucose Lvl (test code = Glucose Lvl) 94 70-99 [facility]2022-12-16 08:12:00 Test Item Value Reference Range Interpretation Comments BUN (test code = BUN) 40 7-22 [place] 542562-12-16 08:12:00 Test Item Value Reference Range Interpretation Comments Creatinine Lvl (test code = Creatinine 1.07 0.50-1.40 Lvl) [place] 542562-12-16 08:12:00 Test Item Value Reference Range Interpretation Comments Sodium Lvl (test code = Sodium Lvl) 144 135-145 [place] 542562-12-16 08:12:00 Test Item Value Reference Range Interpretation Comments Potassium Lvl (test code = Potassium 4.6 3.5-5.1 Lvl) [place] 542562-12-16 08:12:00 Test Item Value Reference Range Interpretation Comments Chloride Lvl (test code = Chloride Lvl) 111 95-109 [place] 542562-12-16 08:12:00 Test Item Value Reference Range Interpretation Comments CO2 (test code = CO2) 28 24-32 [place] 542562-12-16 08:12:00 Test Item Value Reference Range Interpretation Comments AGAP (test code = AGAP) 9.6 10.0-20.0 [place] 542562-12-16 08:12:00 Test Item Value Reference Range Interpretation Comments Calcium Lvl (test code = Calcium Lvl) 8.4 8.5-10.5 [place] 542562-12-16 08:12:00 Test Item Value Reference Range Interpretation Comments B/C Ratio (test code = B/C Ratio) 37 1 6-25 [place] 542562-12-16 08:12:00 Test Item Value Reference Range Interpretation Comments Total Protein (test code = Total 5.6 6.4-8.4 Protein) [place] 542562-12-16 08:12:00 Test Item Value Reference Range Interpretation Comments Albumin Lvl (test code = Albumin Lvl) 2.2 3.5-5.0 [place] 542562-12-16 08:12:00 Test Item Value Reference Range Interpretation Comments Globulin (test code = Globulin) 3.4 2.7-4.2 [place] 542562-12-16 08:12:00 Test Item Value Reference Range Interpretation Comments A/G Ratio (test code = A/G Ratio) 0.6 1 0.7-1.6 [facility] [employer] [id number] 08:12:00 Test Item Value Reference Range Interpretation Comments ALT (test code = ALT) 11 See_Comment [Auto mated message] The system which ge nerated this result transmit rosendo reference range : <=65. The reference range was not used to interpr et this result as josi l/abnormal. [facility] [employer] [id number] 08:12:00 Test Item Value Reference Range Interpretation Comments AST (test code = AST) 19 See_Comment [Auto mated message] The system which ge nerated this result transmit rosendo reference range : <=37. The reference range was not used to interpr et this result as josi l/abnormal. [facility] [employer] [id number] 08:12:00 Test Item Value Reference Range Interpretation Comments Alk Phos (test code = Alk Phos) 98 39-136 [facility] [employer] [id number] 08:12:00 Test Item Value Reference Range Interpretation Comments Bili Total (test code = Bili Total) 0.5 0.2-1.3 [facility] [employer] [id number] 08:12:00 Test Item Value Reference Range Interpretation Comments eGFR (test code = eGFR) 52 [facility] [employer] [id number] 08:12:00 Test Item Value Reference Range Interpretation Comments Magnesium Lvl (test code = Magnesium 2.0 1.8-2.4 Lvl) [facility] [id number] 08:12:00 Test Item Value Reference Range Interpretation Comments Phosphorus (test code = Phosphorus) 3.8 2.5-4.5 [facility] ResourcesTvuzecaUYMMZULVO3149-51-12 08:12:00 Test Item Value Reference Range Interpretation Comments Ca Ion WB (test code = Ca Ion WB) 1.17 1.05-1.25 [facility] TubpvzhKGQNMWYND2568-28-28 08:12:00 Test Item Value Reference Range Interpretation Comments Ca Ion at pH 7.4 WB (test code = Ca Ion 1.16 1.05-1.25 at pH 7.4 WB) [facility] ResourcesXirumlpAEGLFXBXP1743-25-43 08:12:00 Test Item Value Reference Range Interpretation Comments B/C Ratio (test code = B/C Ratio) 37 1 6-25 [facility] ResourcesVubjbreMVIZASINK4726-34-92 08:12:00 Test Item Value Reference Range Interpretation Comments Total Protein (test code = Total 5.6 6.4-8.4 Protein) [facility] HospitalGvjamgaQLOHKWEEK7565-90-10 08:12:00 Test Item Value Reference Range Interpretation Comments Albumin Lvl (test code = Albumin Lvl) 2.2 3.5-5.0 [facility] HospitalKtjuruwXMECUXXQR4169-34-84 08:12:00 Test Item Value Reference Range Interpretation Comments Globulin (test code = Globulin) 3.4 2.7-4.2 [facility] HospitalFizsjkxCNYXFXYVZ1642-98-73 08:12:00 Test Item Value Reference Range Interpretation Comments A/G Ratio (test code = A/G Ratio) 0.6 1 0.7-1.6 [facility] HospitalOpnhohcBIXAMVDUV9188-30-92 08:12:00 Test Item Value Reference Range Interpretation Comments ALT (test code = ALT) 11 See_Comment [Auto mated message] The system which nerated this result transmit rosendo reference range : <=65. The reference range was not used to interpr et this result as josi l/abnormal. [facility] ResourcesRibwgnrLSBHCJHZN3143-16-60 08:12:00 Test Item Value Reference Range Interpretation Comments AST (test code = AST) 19 See_Comment [Auto mated message] The system which ge nerated this result transmit rosendo reference range : <=37. The reference range was not used to interpr et this result as josi l/abnormal. [facility] ResourcesGnmuclsTPWLKCQES8773-91-84 08:12:00 Test Item Value Reference Range Interpretation Comments Alk Phos (test code = Alk Phos) 98 39-136 [facility] ResourcesVpudcedGSBMVYAMH4977-02-50 08:12:00 Test Item Value Reference Range Interpretation Comments Bili Total (test code = Bili Total) 0.5 0.2-1.3 [facility] ResourcesLmjbsigSNSJBBFCB4533-52-62 08:12:00 Test Item Value Reference Range Interpretation Comments Magnesium Lvl (test code = Magnesium 2.0 1.8-2.4 Lvl) [facility] HospitalSrntsbvVAGVHIWSM8068-82-22 08:12:00 Test Item Value Reference Range Interpretation Comments Phosphorus (test code = Phosphorus) 3.8 2.5-4.5 [place] 519362-12-16 08:12:00 Test Item Value Reference Range Interpretation Comments WBC (test code = WBC) 5.6 3.7-10.4 [place] 519362-12-16 08:12:00 Test Item Value Reference Range Interpretation Comments RBC (test code = RBC) 2.44 4.20-5.40 [place] 519362-12-16 08:12:00 Test Item Value Reference Range Interpretation Comments MCV (test code = MCV) 96.5 80.0-98.0 [place] 519362-12-16 08:12:00 Test Item Value Reference Range Interpretation Comments MCH (test code = MCH) 32.9 pg 27.0-31.0 [facility]SgglgyhAZYREGHEYQ8954-28-65 08:12:00 Test Item Value Reference Range Interpretation Comments MCHC (test code = MCHC) 34.0 32.0-36.0 [facility] CenterSskxzgwLIGYRPQERD2951-67-53 08:12:00 Test Item Value Reference Range Interpretation Comments RDW (test code = RDW) 18.4 11.5-14.5 [place] 519362-12-16 08:12:00 Test Item Value Reference Range Interpretation Comments Platelet (test code = Platelet) 241 133-450 [facility] CenterPqpcgmzBSOHQDHDWV0409-80-26 08:12:00 Test Item Value Reference Range Interpretation Comments MPV (test code = MPV) 7.1 7.4-10.4 [facility]2022-12-16 08:12:00 Test Item Value Reference Range Interpretation Comments Ca Ion WB (test code = Ca Ion WB) 1.17 1.05-1.25 [place] 022582-12-16 08:12:00 Test Item Value Reference Range Interpretation Comments Ca Ion at pH 7.4 WB (test code = Ca Ion 1.16 1.05-1.25 at pH 7.4 WB) [facility]wd[facility]iajTUADGCRTRL3664-73-27 16:12:00 Test Item Value Reference Range Interpretation Comments Coronavirus (COVID-19) Not Detected [place] (test code = (10/25/22 10:12 AM) Coronavirus (COVID-19) [place]) [facility]YbcqzzzUDFMPQXTYL2914-17-06 16:12:00 Test Item Value Reference Range Interpretation Comments Coronavirus (COVID-19) Not Detected [place] (test code = (10/25/22 10:12 AM) Coronavirus (COVID-19) [place]) [place] [address]-12-15 16:12:00 Test Item Value Reference Range Interpretation Comments Coronavirus (COVID-19) Not Detected [place] (test code = (10/25/22 10:12 AM) Coronavirus (COVID-19) [place]) [place] [address]-12-15 16:12:00 Test Item Value Reference Range Interpretation Comments Coronavirus (COVID-19) Not Detected [place] (test code = (10/25/22 10:12 AM) Coronavirus (COVID-19) [place]) [address]12-15 16:12:00 Test Item Value Reference Range Interpretation Comments Coronavirus (COVID-19) Not Detected [place] (test code = (10/25/22 10:12 AM) Coronavirus (COVID-19) [place]) [place] [address]-12-15 16:12:00 Test Item Value Reference Range Interpretation Comments Coronavirus (COVID-19) Not Detected [place] (test code = (10/25/22 10:12 AM) Coronavirus (COVID-19) [place]) [place] [address]-12-15 16:12:00 Test Item Value Reference Range Interpretation Comments Coronavirus (COVID-19) Not Detected [place] (test code = (10/25/22 10:12 AM) Coronavirus (COVID-19) [place]) [place] [address]-12-15 16:12:00 Test Item Value Reference Range Interpretation Comments Coronavirus (COVID-19) Not Detected [place] (test code = (10/25/22 10:12 AM) Coronavirus (COVID-19) [place]) [place] [address]-12-15 16:12:00 Test Item Value Reference Range Interpretation Comments Coronavirus (COVID-19) Not Detected [place] (test code = (10/25/22 10:12 AM) Coronavirus (COVID-19) [place]) [place] [address]-12-15 16:12:00 Test Item Value Reference Range Interpretation Comments Coronavirus (COVID-19) Not Detected [place] (test code = (10/25/22 10:12 AM) Coronavirus (COVID-19) [place]) [place] [address]-12-15 16:12:00 Test Item Value Reference Range Interpretation Comments Coronavirus (COVID-19) Not Detected [place] (test code = (10/25/22 10:12 AM) Coronavirus (COVID-19) [place]) [address]12[address]15 16:12:00 Test Item Value Reference Range Interpretation Comments Coronavirus (COVID-19) Not Detected [place] (test code = (10/25/22 10:12 AM) Coronavirus (COVID-19) [place]) [address]12-15 16:12:00 Test Item Value Reference Range Interpretation Comments Coronavirus (COVID-19) Not Detected [place] (test code = (10/25/22 10:12 AM) Coronavirus (COVID-19) [place]) [address]12[address]15 16:12:00 Test Item Value Reference Range Interpretation Comments Coronavirus (COVID-19) Not Detected [place] (test code = (10/25/22 10:12 AM) Coronavirus (COVID-19) [place]) [place] [address]-12-15 16:12:00 Test Item Value Reference Range Interpretation Comments Coronavirus (COVID-19) Not Detected [place] (test code = (10/25/22 10:12 AM) Coronavirus (COVID-19) [place]) [place] [address]-12-15 16:12:00 Test Item Value Reference Range Interpretation Comments Coronavirus (COVID-19) Not Detected [place] (test code = (10/25/22 10:12 AM) Coronavirus (COVID-19) [place]) [place] [address]-12-15 16:12:00 Test Item Value Reference Range Interpretation Comments Coronavirus (COVID-19) Not Detected [place] (test code = (10/25/22 10:12 AM) Coronavirus (COVID-19) [place]) [place] [address]-12-15 16:12:00 Test Item Value Reference Range Interpretation Comments Coronavirus (COVID-19) Not Detected [place] (test code = (10/25/22 10:12 AM) Coronavirus (COVID-19) [place]) [place] [address]-12-15 16:12:00 Test Item Value Reference Range Interpretation Comments Coronavirus (COVID-19) Not Detected [place] (test code = (10/25/22 10:12 AM) Coronavirus (COVID-19) [place]) [facility] WestDlwjpvtAVIJUQXMUY8187-65-44 16:12:00 Test Item Value Reference Range Interpretation Comments Coronavirus (COVID-19) Not Detected [place] (test code = (10/25/22 10:12 AM) Coronavirus (COVID-19) [place]) [facility] WestKhuzrwzOGITXGWAGP4391-27-95 16:12:00 Test Item Value Reference Range Interpretation Comments Coronavirus (COVID-19) Not Detected [place] (test code = (10/25/22 10:12 AM) Coronavirus (COVID-19) [place]) [facility] WestWplyzluIUOWKJBHZS5862-73-49 16:12:00 Test Item Value Reference Range Interpretation Comments Coronavirus (COVID-19) Not Detected [place] (test code = (10/25/22 10:12 AM) Coronavirus (COVID-19) [place]) [facility] [id number] 13:55:00 Test Item Value Reference Range Interpretation Comments RBC product (test code Product available = RBC product) 2(10/25/22 7:55 AM) [facility] [id number] 13:55:00 Test Item Value Reference Range Interpretation Comments RBC product (test code Product available = RBC product) 5(10/25/22 7:55 AM) [facility] [id number] 13:55:00 Test Item Value Reference Range Interpretation Comments RBC product (test code Product available = RBC product) 2(10/25/22 7:55 AM) [facility] [id number] 13:55:00 Test Item Value Reference Range Interpretation Comments RBC product (test code Product available = RBC product) 5(10/25/22 7:55 AM) [facility] [id number] 13:55:00 Test Item Value Reference Range Interpretation Comments RBC product (test code Product available = RBC product) 2(10/25/22 7:55 AM) [facility] [id number] 13:55:00 Test Item Value Reference Range Interpretation Comments RBC product (test code Product available = RBC product) 5(10/25/22 7:55 AM) [facility] [id number] 13:55:00 Test Item Value Reference Range Interpretation Comments RBC product (test code Product available = RBC product) 2(10/25/22 7:55 AM) [facility] [id number] 13:55:00 Test Item Value Reference Range Interpretation Comments RBC product (test code Product available = RBC product) 5(10/25/22 7:55 AM) [facility] [id number] 13:55:00 Test Item Value Reference Range Interpretation Comments RBC product (test code Product available = RBC product) 2(10/25/22 7:55 AM) [facility] [id number] 13:55:00 Test Item Value Reference Range Interpretation Comments RBC product (test code Product available = RBC product) 5(10/25/22 7:55 AM) [facility] [id number] 13:55:00 Test Item Value Reference Range Interpretation Comments RBC product (test code Product available = RBC product) 2(10/25/22 7:55 AM) [facility] [id number] 13:55:00 Test Item Value Reference Range Interpretation Comments RBC product (test code Product available = RBC product) 5(10/25/22 7:55 AM) [facility] [id number] 13:55:00 Test Item Value Reference Range Interpretation Comments RBC product (test code Product available = RBC product) 2(10/25/22 7:55 AM) [facility] [id number] 13:55:00 Test Item Value Reference Range Interpretation Comments RBC product (test code Product available = RBC product) 5(10/25/22 7:55 AM) [facility] [id number] 13:55:00 Test Item Value Reference Range Interpretation Comments RBC product (test code Product available = RBC product) 2(10/25/22 7:55 AM) [facility] [id number] 13:55:00 Test Item Value Reference Range Interpretation Comments RBC product (test code Product available = RBC product) 5(10/25/22 7:55 AM) [facility] [id number] 13:55:00 Test Item Value Reference Range Interpretation Comments RBC product (test code Product available = RBC product) 2(10/25/22 7:55 AM) [facility] [id number] 13:55:00 Test Item Value Reference Range Interpretation Comments RBC product (test code Product available = RBC product) 5(10/25/22 7:55 AM) [facility] [id number] 13:55:00 Test Item Value Reference Range Interpretation Comments RBC product (test code Product available = RBC product) 2(10/25/22 7:55 AM) [facility] [id number] 13:55:00 Test Item Value Reference Range Interpretation Comments RBC product (test code Product available = RBC product) 5(10/25/22 7:55 AM) [facility] [id number] 13:55:00 Test Item Value Reference Range Interpretation Comments RBC product (test code Product available = RBC product) 2(10/25/22 7:55 AM) [facility] [id number] 13:55:00 Test Item Value Reference Range Interpretation Comments RBC product (test code Product available = RBC product) 5(10/25/22 7:55 AM) [facility]BA[facility] - [id number] 13:51:00 Test Item Value Reference Range Interpretation Comments MRSA by PCR (test Positive 1*ABN*(10/25/22 code = MRSA by PCR) 7:51 AM) [facility] [id number] 13:51:00 Test Item Value Reference Range Interpretation Comments MRSA by PCR (test Positive 1*ABN*(10/25/22 code = MRSA by PCR) 7:51 AM) [facility] [id number] 13:51:00 Test Item Value Reference Range Interpretation Comments MRSA by PCR (test Positive 1*ABN*(10/25/22 code = MRSA by PCR) 7:51 AM) [facility] [id number] 13:51:00 Test Item Value Reference Range Interpretation Comments MRSA by PCR (test Positive 1*ABN*(10/25/22 code = MRSA by PCR) 7:51 AM) [facility] [id number] 13:51:00 Test Item Value Reference Range Interpretation Comments MRSA by PCR (test Positive 1*ABN*(10/25/22 code = MRSA by PCR) 7:51 AM) [facility]2022-12-15 13:51:00 Test Item Value Reference Range Interpretation Comments MRSA by PCR (test Positive 1*ABN*(10/25/22 code = MRSA by PCR) 7:51 AM) [facility]2022-12-15 13:51:00 Test Item Value Reference Range Interpretation Comments MRSA by PCR (test Positive 1*ABN*(10/25/22 code = MRSA by PCR) 7:51 AM) [facility]2022-12-15 13:51:00 Test Item Value Reference Range Interpretation Comments MRSA by PCR (test Positive 1*ABN*(10/25/22 code = MRSA by PCR) 7:51 AM) [facility]2022-12-15 13:51:00 Test Item Value Reference Range Interpretation Comments MRSA by PCR (test Positive 1*ABN*(10/25/22 code = MRSA by PCR) 7:51 AM) [facility]2022-12-15 13:51:00 Test Item Value Reference Range Interpretation Comments MRSA by PCR (test Positive 1*ABN*(10/25/22 code = MRSA by PCR) 7:51 AM) [facility]2022-12-15 13:51:00 Test Item Value Reference Range Interpretation Comments MRSA by PCR (test Positive 1*ABN*(10/25/22 code = MRSA by PCR) 7:51 AM) [facility]2022-12-15 12:51:00 Test Item Value Reference Range Interpretation Comments Ferritin Lvl (test code = Ferritin Lvl) 199 5-204 [facility]2022-12-15 12:51:00 Test Item Value Reference Range Interpretation Comments Iron (test code = Iron) 82 [facility]2022-12-15 12:51:00 Test Item Value Reference Range Interpretation Comments TIBC (test code = TIBC) 216 [facility]2022-12-15 12:51:00 Test Item Value Reference Range Interpretation Comments % Satur Fe (test code = % Satur Fe) 38 [facility] [id number] 12:51:00 Test Item Value Reference Range Interpretation Comments Folate Lvl (test code = Folate Lvl) 8.7 [facility]2022-12-15 12:51:00 Test Item Value Reference Range Interpretation Comments Vitamin B12 Lvl (test code = Vitamin 392 B12 Lvl) [facility] [id number] 12:51:00 Test Item Value Reference Range Interpretation Comments ABO/Rh (test code = ABO/Rh) A NEG [facility] [employer] [facility] [id number] 12:51:00 Test Item Value Reference Range Interpretation Comments Antibody Scrn (test Positive 3(10/25/22 code = Antibody Scrn) 6:51 AM) [facility] [id number] 12:51:00 Test Item Value Reference Range Interpretation Comments AB Int (test code = AB Int) Anti-D [facility] [id number] 12:51:00 Test Item Value Reference Range Interpretation Comments ABO/Rh (test code = ABO/Rh) A NEG [facility] [id number] 12:51:00 Test Item Value Reference Range Interpretation Comments Antibody Scrn (test Positive 6(10/25/22 code = Antibody Scrn) 6:51 AM) [facility] [employer] [facility] [id number] 12:51:00 Test Item Value Reference Range Interpretation Comments AB Int (test code = AB Int) Anti-D [facility] [employer] [id number] 12:51:00 Test Item Value Reference Range Interpretation Comments Glucose Lvl (test code = Glucose Lvl) 88 70-99 [facility] [employer] [id number] 12:51:00 Test Item Value Reference Range Interpretation Comments BUN (test code = BUN) 54 7-22 [facility] [employer] [id number] 12:51:00 Test Item Value Reference Range Interpretation Comments Creatinine Lvl (test code = Creatinine 1.53 0.50-1.40 Lvl) [facility] [employer] [id number] 12:51:00 Test Item Value Reference Range Interpretation Comments Sodium Lvl (test code = Sodium Lvl) 139 135-145 [facility] [employer] [id number] 12:51:00 Test Item Value Reference Range Interpretation Comments Potassium Lvl (test code = Potassium 4.4 3.5-5.1 Lvl) [facility] ResourcesSaperionREBECCA VILLE [id number] 12:51:00 Test Item Value Reference Range Interpretation Comments Chloride Lvl (test code = Chloride Lvl) 107 95-109 [place] [address]-12-15 12:51:00 Test Item Value Reference Range Interpretation Comments CO2 (test code = CO2) 26 24-32 [place] 542562-12-15 12:51:00 Test Item Value Reference Range Interpretation Comments Calcium Lvl (test code = Calcium Lvl) 7.7 8.5-10.5 [facility] [place] [facility] ResourcesSaperionREBECCA [place]ILLE [id number] 12:51:00 Test Item Value Reference Range Interpretation Comments Total Protein (test code = Total 6.0 6.4-8.4 Protein) [place] 542562-12-15 12:51:00 Test Item Value Reference Range Interpretation Comments Albumin Lvl (test code = Albumin Lvl) 2.2 3.5-5.0 [facility] [place] [facility] ResourcesAboutUs.org [id number] 12:51:00 Test Item Value Reference Range Interpretation Comments ALT (test code = ALT) 16 See_Comment [Auto mated message] The system which ge nerated this result transmit rosendo reference range : <=65. The reference range was not used to interpr et this result as josi l/abnormal. [place] [address]-12-15 12:51:00 Test Item Value Reference Range Interpretation Comments AST (test code = AST) 17 See_Comment [Auto mated message] The system which ge nerated this result transmit rosendo reference range : <=37. The reference range was not used to interpr et this result as josi l/abnormal. [facility] [place] [facility] Resources[facility] [id number] 12:51:00 Test Item Value Reference Range Interpretation Comments Alk Phos (test code = Alk Phos) 104 39-136 [facility] [id number] 12:51:00 Test Item Value Reference Range Interpretation Comments Bili Total (test code = Bili Total) 0.4 0.2-1.3 [place] [address]-12-15 12:51:00 Test Item Value Reference Range Interpretation Comments AGAP (test code = AGAP) 10.4 10.0-20.0 [place] 542562-12-15 12:51:00 Test Item Value Reference Range Interpretation Comments B/C Ratio (test code = B/C Ratio) 35 1 6-25 [place] 542562-12-15 12:51:00 Test Item Value Reference Range Interpretation Comments Globulin (test code = Globulin) 3.8 2.7-4.2 [place] 542562-12-15 12:51:00 Test Item Value Reference Range Interpretation Comments A/G Ratio (test code = A/G Ratio) 0.6 1 0.7-1.6 [place] 542562-12-15 12:51:00 Test Item Value Reference Range Interpretation Comments eGFR (test code = eGFR) 34 [facility]2022-12-15 12:51:00 Test Item Value Reference Range Interpretation Comments LDH (test code = LDH) 152 98-192 [facility] HospitalDqiylylWLPZOCOOA6333-05-58 12:51:00 Test Item Value Reference Range Interpretation Comments Ferritin Lvl (test code = Ferritin Lvl) 199 5-204 [facility] HospitalGoefpnzKBHXGPDKU7770-29-95 12:51:00 Test Item Value Reference Range Interpretation Comments Iron (test code = Iron) 82 45-160 [facility] HospitalQiqcvkzZZBGEDASB8605-35-44 12:51:00 Test Item Value Reference Range Interpretation Comments TIBC (test code = TIBC) 216 250-450 [facility] HospitalYmxhjesWJZVQKZQX8410-23-91 12:51:00 Test Item Value Reference Range Interpretation Comments % Satur Fe (test code = % Satur Fe) 38 16-45 [facility] HospitalWmclfeaRTNXEOWCX8575-05-95 12:51:00 Test Item Value Reference Range Interpretation Comments Folate Lvl (test code = Folate Lvl) 8.7 [facility] HospitalPryswaoXZBINJEYI4395-89-22 12:51:00 Test Item Value Reference Range Interpretation Comments Vitamin B12 Lvl (test code = Vitamin 773 663-3171 B12 Lvl) [place] 930682-12-15 12:51:00 Test Item Value Reference Range Interpretation Comments LDH (test code = LDH) 152 98-192 [facility]EdiguhpGCRSSDZUFW2065-60-99 12:51:00 Test Item Value Reference Range Interpretation Comments PT (test code = PT) 14.7 s 12.0-14.[address]12-15 12:51:00 Test Item Value Reference Range Interpretation Comments INR (test code = INR) 1.16 1 0.85-1.17 [place] 519362-12-15 12:51:00 Test Item Value Reference Range Interpretation Comments PTT (test code = PTT) 36.9 s 22.9-35.8 [place] 519362-12-15 12:51:00 Test Item Value Reference Range Interpretation Comments Retic Perf (test code = Yes (10/25/22 6:51 AM) Retic Perf) [facility] CenterAugkrjuDZJEFUITLH0951-46-93 12:51:00 Test Item Value Reference Range Interpretation Comments Retic Auto (test code = Retic Auto) 0.9 0.5-1.5 [facility] CenterZyhpfsbHJBQPUNRMM5637-09-70 12:51:00 Test Item Value Reference Range Interpretation Comments PT (test code = PT) 14.7 s 12.0-14.7 [facility] CenterCrewlqqUXLGVEWKNJ5355-46-47 12:51:00 Test Item Value Reference Range Interpretation Comments INR (test code = INR) 1.16 1 0.85-1.17 [facility] CenterTvczbvnRYCMNBKPJI4086-56-14 12:51:00 Test Item Value Reference Range Interpretation Comments PTT (test code = PTT) 36.9 s 22.9-35.8 [facility] CenterDznzqtbGMUGXEIRSB2065-38-59 12:51:00 Test Item Value Reference Range Interpretation Comments Retic Perf (test code = Yes (10/25/22 6:51 AM) Retic Perf) [facility] CenterJfxikdvVHVKJOCHFY6289-18-63 12:51:00 Test Item Value Reference Range Interpretation Comments Retic Auto (test code = Retic Auto) 0.9 0.5-1.5 [facility]YeqtyzaHFKAAFFPCO6611-75-26 12:51:00 Test Item Value Reference Range Interpretation Comments Haptoglobin (test code = Haptoglobin) 152 16-200 [facility] WestOtepoazTOGKMFWWGB1101-25-13 12:51:00 Test Item Value Reference Range Interpretation Comments Haptoglobin (test code = Haptoglobin) 152 16-200 [facility]2022-12-15 12:51:00 Test Item Value Reference Range Interpretation Comments Ferritin Lvl (test code = Ferritin Lvl) 199 5-204 [facility]2022-12-15 12:51:00 Test Item Value Reference Range Interpretation Comments Iron (test code = Iron) 82 [facility] [id number] 12:51:00 Test Item Value Reference Range Interpretation Comments TIBC (test code = TIBC) 216 [facility] [id number] 12:51:00 Test Item Value Reference Range Interpretation Comments % Satur Fe (test code = % Satur Fe) 38 [facility]2022-12-15 12:51:00 Test Item Value Reference Range Interpretation Comments Folate Lvl (test code = Folate Lvl) 8.7 [facility]2022-12-15 12:51:00 Test Item Value Reference Range Interpretation Comments Vitamin B12 Lvl (test code = Vitamin 392 B12 Lvl) [facility] [id number] 12:51:00 Test Item Value Reference Range Interpretation Comments ABO/Rh (test code = ABO/Rh) A NEG [facility] CenterN[facility] [id number] 12:51:00 Test Item Value Reference Range Interpretation Comments Antibody Scrn (test Positive 3(10/25/22 code = Antibody Scrn) 6:51 AM) [facility] [place] [facility] ResourcesS[facility]ionN[facility] [id number] 12:51:00 Test Item Value Reference Range Interpretation Comments AB Int (test code = AB Int) Anti-D [facility] [id number] 12:51:00 Test Item Value Reference Range Interpretation Comments ABO/Rh (test code = ABO/Rh) A NEG [facility] [employer] [facility] [id number] 12:51:00 Test Item Value Reference Range Interpretation Comments Antibody Scrn (test Positive 6(10/25/22 code = Antibody Scrn) 6:51 AM) [facility] Resources[facility] [id number] 12:51:00 Test Item Value Reference Range Interpretation Comments AB Int (test code = AB Int) Anti-D [facility] [employer] [id number] 12:51:00 Test Item Value Reference Range Interpretation Comments Glucose Lvl (test code = Glucose Lvl) 88 70-99 [facility] [employer] [id number] 12:51:00 Test Item Value Reference Range Interpretation Comments BUN (test code = BUN) 54 7-22 [facility] [employer] [id number] 12:51:00 Test Item Value Reference Range Interpretation Comments Creatinine Lvl (test code = Creatinine 1.53 0.50-1.40 Lvl) [place] 542562-12-15 12:51:00 Test Item Value Reference Range Interpretation Comments Sodium Lvl (test code = Sodium Lvl) 139 135-145 [place] 542562-12-15 12:51:00 Test Item Value Reference Range Interpretation Comments Potassium Lvl (test code = Potassium 4.4 3.5-5.1 Lvl) [place] 542562-12-15 12:51:00 Test Item Value Reference Range Interpretation Comments Chloride Lvl (test code = Chloride Lvl) 107 95-109 [place] 542562-12-15 12:51:00 Test Item Value Reference Range Interpretation Comments CO2 (test code = CO2) 26 24-32 [place] 542562-12-15 12:51:00 Test Item Value Reference Range Interpretation Comments Calcium Lvl (test code = Calcium Lvl) 7.7 8.5-10.5 [place] 542562-12-15 12:51:00 Test Item Value Reference Range Interpretation Comments Total Protein (test code = Total 6.0 6.4-8.4 Protein) [place] 542562-12-15 12:51:00 Test Item Value Reference Range Interpretation Comments Albumin Lvl (test code = Albumin Lvl) 2.2 3.5-5.0 [place] 542562-12-15 12:51:00 Test Item Value Reference Range Interpretation Comments ALT (test code = ALT) 16 See_Comment [Auto mated message] The system which ge nerated this result transmit rosendo reference range : <=65. The reference range was not used to interpr et this result as josi l/abnormal. [place] 542562-12-15 12:51:00 Test Item Value Reference Range Interpretation Comments AST (test code = AST) 17 See_Comment [Auto mated message] The system which ge nerated this result transmit rosendo reference range : <=37. The reference range was not used to interpr et this result as josi l/abnormal. [place] 542562-12-15 12:51:00 Test Item Value Reference Range Interpretation Comments Alk Phos (test code = Alk Phos) 104 39-136 [place] 542562-12-15 12:51:00 Test Item Value Reference Range Interpretation Comments Bili Total (test code = Bili Total) 0.4 0.2-1.3 [place] 542562-12-15 12:51:00 Test Item Value Reference Range Interpretation Comments AGAP (test code = AGAP) 10.4 10.0-20.0 [place] 542562-12-15 12:51:00 Test Item Value Reference Range Interpretation Comments B/C Ratio (test code = B/C Ratio) 35 1 6-25 [place] 542562-12-15 12:51:00 Test Item Value Reference Range Interpretation Comments Globulin (test code = Globulin) 3.8 2.7-4.2 [place] 542562-12-15 12:51:00 Test Item Value Reference Range Interpretation Comments A/G Ratio (test code = A/G Ratio) 0.6 1 0.7-1.6 [place] 542562-12-15 12:51:00 Test Item Value Reference Range Interpretation Comments eGFR (test code = eGFR) 34 [place] 542562-12-15 12:51:00 Test Item Value Reference Range Interpretation Comments LDH (test code = LDH) 152 98-192 [facility] HospitalHecohdyFYOWXLCJF8981-75-00 12:51:00 Test Item Value Reference Range Interpretation Comments Ferritin Lvl (test code = Ferritin Lvl) 199 5-204 [facility] HospitalIzqzzqeEKNIWRYMH8269-99-29 12:51:00 Test Item Value Reference Range Interpretation Comments Iron (test code = Iron) 82 45-160 [place] 930682-12-15 12:51:00 Test Item Value Reference Range Interpretation Comments TIBC (test code = TIBC) 216 250-450 [place] 930682-12-15 12:51:00 Test Item Value Reference Range Interpretation Comments % Satur Fe (test code = % Satur Fe) 38 16-45 [place] 930682-12-15 12:51:00 Test Item Value Reference Range Interpretation Comments Folate Lvl (test code = Folate Lvl) 8.7 [place] 930682-12-15 12:51:00 Test Item Value Reference Range Interpretation Comments Vitamin B12 Lvl (test code = Vitamin 955 057-7059 B12 Lvl) [facility] HospitalMjnwkrcEQYNHIQAY0490-94-71 12:51:00 Test Item Value Reference Range Interpretation Comments LDH (test code = LDH) 152 98-192 [facility] CenterYspxyhkFAPMJXJYJQ6851-06-77 12:51:00 Test Item Value Reference Range Interpretation Comments PT (test code = PT) 14.7 s 12.0-14.7 [place] 519362-12-15 12:51:00 Test Item Value Reference Range Interpretation Comments INR (test code = INR) 1.16 1 0.85-1.17 [place] 519362-12-15 12:51:00 Test Item Value Reference Range Interpretation Comments PTT (test code = PTT) 36.9 s 22.9-35.8 [place] 519362-12-15 12:51:00 Test Item Value Reference Range Interpretation Comments Retic Perf (test code = Yes (10/25/22 6:51 AM) Retic Perf) [facility] CenterEezbwpwWPHARJRDZV4679-32-36 12:51:00 Test Item Value Reference Range Interpretation Comments Retic Auto (test code = Retic Auto) 0.9 0.5-1.5 [place] 519362-12-15 12:51:00 Test Item Value Reference Range Interpretation Comments PT (test code = PT) 14.7 s 12.0-14.7 [facility] CenterPwkxeyfGPCNEGHKIK1862-31-16 12:51:00 Test Item Value Reference Range Interpretation Comments INR (test code = INR) 1.16 1 0.85-1.17 [facility] CenterHfsvosdDRWYUXTHQA1072-61-50 12:51:00 Test Item Value Reference Range Interpretation Comments PTT (test code = PTT) 36.9 s 22.9-35.8 [place] 519362-12-15 12:51:00 Test Item Value Reference Range Interpretation Comments Retic Perf (test code = Yes (10/25/22 6:51 AM) Retic Perf) [place] [address]-12-15 12:51:00 Test Item Value Reference Range Interpretation Comments Retic Auto (test code = Retic Auto) 0.9 0.5-1.5 [place] 106782-12-15 12:51:00 Test Item Value Reference Range Interpretation Comments Haptoglobin (test code = Haptoglobin) 152 16-200 [place] [address]-12-15 12:51:00 Test Item Value Reference Range Interpretation Comments Haptoglobin (test code = Haptoglobin) 152 16-200 [facility] [id number] 12:51:00 Test Item Value Reference Range Interpretation Comments Ferritin Lvl (test code = Ferritin Lvl) 199 5-204 [facility] HJVDT0516-11-97 12:51:00 Test Item Value Reference Range Interpretation Comments Iron (test code = Iron) 82 [facility] [id number] 12:51:00 Test Item Value Reference Range Interpretation Comments TIBC (test code = TIBC) 216 [facility] [id number] 12:51:00 Test Item Value Reference Range Interpretation Comments % Satur Fe (test code = % Satur Fe) 38 [facility] [id number] 12:51:00 Test Item Value Reference Range Interpretation Comments Folate Lvl (test code = Folate Lvl) 8.7 [facility]2022-12-15 12:51:00 Test Item Value Reference Range Interpretation Comments Vitamin B12 Lvl (test code = Vitamin 392 B12 Lvl) [facility] [place] [facility] ResourcesRipple TV [id number] 12:51:00 Test Item Value Reference Range Interpretation Comments ABO/Rh (test code = ABO/Rh) A NEG [facility] [employer] [facility] [id number] 12:51:00 Test Item Value Reference Range Interpretation Comments Antibody Scrn (test Positive 3(10/25/22 code = Antibody Scrn) 6:51 AM) [facility] [place] [facility] ResourcesB[facility] [id number] 12:51:00 Test Item Value Reference Range Interpretation Comments AB Int (test code = AB Int) Anti-D [facility] [id number] 12:51:00 Test Item Value Reference Range Interpretation Comments ABO/Rh (test code = ABO/Rh) A NEG [facility] [employer] [facility] [id number] 12:51:00 Test Item Value Reference Range Interpretation Comments Antibody Scrn (test Positive 6(10/25/22 code = Antibody Scrn) 6:51 AM) [facility] [employer] [id number] 12:51:00 Test Item Value Reference Range Interpretation Comments AB Int (test code = AB Int) Anti-D [facility] [id number] 12:51:00 Test Item Value Reference Range Interpretation Comments Glucose Lvl (test code = Glucose Lvl) 88 70-99 [place] 542562-12-15 12:51:00 Test Item Value Reference Range Interpretation Comments BUN (test code = BUN) 54 7-22 [place] 542562-12-15 12:51:00 Test Item Value Reference Range Interpretation Comments Creatinine Lvl (test code = Creatinine 1.53 0.50-1.40 Lvl) [place] [address]-12-15 12:51:00 Test Item Value Reference Range Interpretation Comments Sodium Lvl (test code = Sodium Lvl) 139 135-145 [place] 542562-12-15 12:51:00 Test Item Value Reference Range Interpretation Comments Potassium Lvl (test code = Potassium 4.4 3.5-5.1 Lvl) [place] 542562-12-15 12:51:00 Test Item Value Reference Range Interpretation Comments Chloride Lvl (test code = Chloride Lvl) 107 95-109 [place] 542562-12-15 12:51:00 Test Item Value Reference Range Interpretation Comments CO2 (test code = CO2) 26 24-32 [place] [address]-12-15 12:51:00 Test Item Value Reference Range Interpretation Comments Calcium Lvl (test code = Calcium Lvl) 7.7 8.5-10.5 [place] 542562-12-15 12:51:00 Test Item Value Reference Range Interpretation Comments Total Protein (test code = Total 6.0 6.4-8.4 Protein) [place] [address]-12-15 12:51:00 Test Item Value Reference Range Interpretation Comments Albumin Lvl (test code = Albumin Lvl) 2.2 3.5-5.0 [place] [address]-12-15 12:51:00 Test Item Value Reference Range Interpretation Comments ALT (test code = ALT) 16 See_Comment [Auto mated message] The system which ge nerated this result transmit rosendo reference range : <=65. The reference range was not used to interpr et this result as josi l/abnormal. [place] [address]-12-15 12:51:00 Test Item Value Reference Range Interpretation Comments AST (test code = AST) 17 See_Comment [Auto mated message] The system which ge nerated this result transmit rosendo reference range : <=37. The reference range was not used to interpr et this result as josi l/abnormal. [facility] [id number] 12:51:00 Test Item Value Reference Range Interpretation Comments Alk Phos (test code = Alk Phos) 104 39-136 [facility]2022-12-15 12:51:00 Test Item Value Reference Range Interpretation Comments Bili Total (test code = Bili Total) 0.4 0.2-1.3 [facility]2022-12-15 12:51:00 Test Item Value Reference Range Interpretation Comments AGAP (test code = AGAP) 10.4 10.0-20.0 [place] 542562-12-15 12:51:00 Test Item Value Reference Range Interpretation Comments B/C Ratio (test code = B/C Ratio) 35 1 6-25 [place] 542562-12-15 12:51:00 Test Item Value Reference Range Interpretation Comments Globulin (test code = Globulin) 3.8 2.7-4.2 [facility] [id number] 12:51:00 Test Item Value Reference Range Interpretation Comments A/G Ratio (test code = A/G Ratio) 0.6 1 0.7-1.6 [place] 542562-12-15 12:51:00 Test Item Value Reference Range Interpretation Comments eGFR (test code = eGFR) 34 [facility]2022-12-15 12:51:00 Test Item Value Reference Range Interpretation Comments LDH (test code = LDH) 152 98-192 [facility] HospitalPtclkqjBZTMVBXXR5790-30-30 12:51:00 Test Item Value Reference Range Interpretation Comments Ferritin Lvl (test code = Ferritin Lvl) 199 5-204 [place] 930682-12-15 12:51:00 Test Item Value Reference Range Interpretation Comments Iron (test code = Iron) 82 45-160 [place] 930682-12-15 12:51:00 Test Item Value Reference Range Interpretation Comments TIBC (test code = TIBC) 216 250-450 [place] 930682-12-15 12:51:00 Test Item Value Reference Range Interpretation Comments % Satur Fe (test code = % Satur Fe) 38 16-45 [place] 930682-12-15 12:51:00 Test Item Value Reference Range Interpretation Comments Folate Lvl (test code = Folate Lvl) 8.7 [facility] HospitalTtqxgizRJOLKQYWF3053-28-94 12:51:00 Test Item Value Reference Range Interpretation Comments Vitamin B12 Lvl (test code = Vitamin 796 132-2472 B12 Lvl) [facility] HospitalFugdphiITLNBGLQL1246-86-03 12:51:00 Test Item Value Reference Range Interpretation Comments LDH (test code = LDH) 152 98-192 [place] [address]-12-15 12:51:00 Test Item Value Reference Range Interpretation Comments PT (test code = PT) 14.7 s 12.0-14.7 [place] [address]-12-15 12:51:00 Test Item Value Reference Range Interpretation Comments INR (test code = INR) 1.16 1 0.85-1.17 [place] 519362-12-15 12:51:00 Test Item Value Reference Range Interpretation Comments PTT (test code = PTT) 36.9 s 22.9-35.8 [place] [address]-12-15 12:51:00 Test Item Value Reference Range Interpretation Comments Retic Perf (test code = Yes (10/25/22 6:51 AM) Retic Perf) [facility]CkqbbilBWQAMCFHXZ6114-02-10 12:51:00 Test Item Value Reference Range Interpretation Comments Retic Auto (test code = Retic Auto) 0.9 0.5-1.5 [place] [address]-12-15 12:51:00 Test Item Value Reference Range Interpretation Comments PT (test code = PT) 14.7 s 12.0-14.7 [place] [address]-12-15 12:51:00 Test Item Value Reference Range Interpretation Comments INR (test code = INR) 1.16 1 0.85-1.17 [place] [address]-12-15 12:51:00 Test Item Value Reference Range Interpretation Comments PTT (test code = PTT) 36.9 s 22.9-35.8 [place] [address]-12-15 12:51:00 Test Item Value Reference Range Interpretation Comments Retic Perf (test code = Yes (10/25/22 6:51 AM) Retic Perf) [place] [address]-12-15 12:51:00 Test Item Value Reference Range Interpretation Comments Retic Auto (test code = Retic Auto) 0.9 0.5-1.5 [id number] 12:51:00 Test Item Value Reference Range Interpretation Comments Haptoglobin (test code = Haptoglobin) 152 16-200 [facility]ibrJYRJXRYBAK9638-19-45 12:51:00 Test Item Value Reference Range Interpretation Comments Haptoglobin (test code = Haptoglobin) 152 16-200 [facility]2022-12-15 12:51:00 Test Item Value Reference Range Interpretation Comments Ferritin Lvl (test code = Ferritin Lvl) 199 5-204 [facility]2022-12-15 12:51:00 Test Item Value Reference Range Interpretation Comments Iron (test code = Iron) 82 [facility] [id number] 12:51:00 Test Item Value Reference Range Interpretation Comments TIBC (test code = TIBC) 216 [facility]2022-12-15 12:51:00 Test Item Value Reference Range Interpretation Comments % Satur Fe (test code = % Satur Fe) 38 [facility] [id number] 12:51:00 Test Item Value Reference Range Interpretation Comments Folate Lvl (test code = Folate Lvl) 8.7 [facility]2022-12-15 12:51:00 Test Item Value Reference Range Interpretation Comments Vitamin B12 Lvl (test code = Vitamin 392 B12 Lvl) [facility] [id number] 12:51:00 Test Item Value Reference Range Interpretation Comments ABO/Rh (test code = ABO/Rh) A NEG [facility] [id number] 12:51:00 Test Item Value Reference Range Interpretation Comments Antibody Scrn (test Positive 3(10/25/22 code = Antibody Scrn) 6:51 AM) [facility] [id number] 12:51:00 Test Item Value Reference Range Interpretation Comments AB Int (test code = AB Int) Anti-D [facility] [id number] 12:51:00 Test Item Value Reference Range Interpretation Comments ABO/Rh (test code = ABO/Rh) A NEG [facility] [id number] 12:51:00 Test Item Value Reference Range Interpretation Comments Antibody Scrn (test Positive 6(10/25/22 code = Antibody Scrn) 6:51 AM) [facility] [id number] 12:51:00 Test Item Value Reference Range Interpretation Comments AB Int (test code = AB Int) Anti-D [facility] [id number] 12:51:00 Test Item Value Reference Range Interpretation Comments Glucose Lvl (test code = Glucose Lvl) 88 70-99 [facility] [id number] 12:51:00 Test Item Value Reference Range Interpretation Comments BUN (test code = BUN) 54 7-22 [facility] [id number] 12:51:00 Test Item Value Reference Range Interpretation Comments Creatinine Lvl (test code = Creatinine 1.53 0.50-1.40 Lvl) [facility] [id number] 12:51:00 Test Item Value Reference Range Interpretation Comments Sodium Lvl (test code = Sodium Lvl) 139 135-145 [facility] [id number] 12:51:00 Test Item Value Reference Range Interpretation Comments Potassium Lvl (test code = Potassium 4.4 3.5-5.1 Lvl) [facility] [id number] 12:51:00 Test Item Value Reference Range Interpretation Comments Chloride Lvl (test code = Chloride Lvl) 107 95-109 [facility] [id number] 12:51:00 Test Item Value Reference Range Interpretation Comments CO2 (test code = CO2) 26 24-32 [facility] [id number] 12:51:00 Test Item Value Reference Range Interpretation Comments Calcium Lvl (test code = Calcium Lvl) 7.7 8.5-10.5 [facility] [id number] 12:51:00 Test Item Value Reference Range Interpretation Comments Total Protein (test code = Total 6.0 6.4-8.4 Protein) [facility] [id number] 12:51:00 Test Item Value Reference Range Interpretation Comments Albumin Lvl (test code = Albumin Lvl) 2.2 3.5-5.0 [facility] [id number] 12:51:00 Test Item Value Reference Range Interpretation Comments ALT (test code = ALT) 16 See_Comment [Auto mated message] The system which ge nerated this result transmit rosendo reference range : <=65. The reference range was not used to interpr et this result as josi l/abnormal. [facility] [employer] [id number] 12:51:00 Test Item Value Reference Range Interpretation Comments AST (test code = AST) 17 See_Comment [Auto mated message] The system which ge nerated this result transmit rosendo reference range : <=37. The reference range was not used to interpr et this result as josi l/abnormal. [facility] [employer] [id number] 12:51:00 Test Item Value Reference Range Interpretation Comments Alk Phos (test code = Alk Phos) 104 39-136 [facility] [employer] [id number] 12:51:00 Test Item Value Reference Range Interpretation Comments Bili Total (test code = Bili Total) 0.4 0.2-1.3 [facility] [employer] [id number] 12:51:00 Test Item Value Reference Range Interpretation Comments AGAP (test code = AGAP) 10.4 10.0-20.0 [facility] [employer] [id number] 12:51:00 Test Item Value Reference Range Interpretation Comments B/C Ratio (test code = B/C Ratio) 35 1 6-25 [facility] [employer] [id number] 12:51:00 Test Item Value Reference Range Interpretation Comments Globulin (test code = Globulin) 3.8 2.7-4.2 [facility] [employer] [id number] 12:51:00 Test Item Value Reference Range Interpretation Comments A/G Ratio (test code = A/G Ratio) 0.6 1 0.7-1.6 [facility] [employer] [id number] 12:51:00 Test Item Value Reference Range Interpretation Comments eGFR (test code = eGFR) 34 [facility] [employer] [id number] 12:51:00 Test Item Value Reference Range Interpretation Comments LDH (test code = LDH) 152 98-192 [facility] R[id number] 12:51:00 Test Item Value Reference Range Interpretation Comments Ferritin Lvl (test code = Ferritin Lvl) 199 5-204 [facility] [id number] 12:51:00 Test Item Value Reference Range Interpretation Comments Iron (test code = Iron) 82 45-160 [facility]ud[facility]zrOCQFFOGYL4861-52-75 12:51:00 Test Item Value Reference Range Interpretation Comments TIBC (test code = TIBC) 216 250-450 [facility] [id number] 12:51:00 Test Item Value Reference Range Interpretation Comments % Satur Fe (test code = % Satur Fe) 38 16-45 [place] [id number] 12:51:00 Test Item Value Reference Range Interpretation Comments Folate Lvl (test code = Folate Lvl) 8.7 [facility] HospitalAfeabxqXDROYFQMK8212-56-94 12:51:00 Test Item Value Reference Range Interpretation Comments Vitamin B12 Lvl (test code = Vitamin 138 762-1552 B12 Lvl) [facility] HospitalAkcwawxVMLMHEYYI4220-38-23 12:51:00 Test Item Value Reference Range Interpretation Comments LDH (test code = LDH) 152 98-192 [facility]rv[facility]ntRCSXQPEDRR7450-34-07 12:51:00 Test Item Value Reference Range Interpretation Comments PT (test code = PT) 14.7 s 12.0-14.7 [place]362-12-15 12:51:00 Test Item Value Reference Range Interpretation Comments INR (test code = INR) 1.16 1 0.85-1.17 [facility]icfhgNESCBUUWBB0308-42-22 12:51:00 Test Item Value Reference Range Interpretation Comments PTT (test code = PTT) 36.9 s 22.9-35.8 [place] [address]-12-15 12:51:00 Test Item Value Reference Range Interpretation Comments Retic Perf (test code = Yes (10/25/22 6:51 AM) Retic Perf) [facility] C[id number] 12:51:00 Test Item Value Reference Range Interpretation Comments Retic Auto (test code = Retic Auto) 0.9 0.5-1.5 [place] [address]-12-15 12:51:00 Test Item Value Reference Range Interpretation Comments PT (test code = PT) 14.7 s 12.0-14.7 [place] [address]-12-15 12:51:00 Test Item Value Reference Range Interpretation Comments INR (test code = INR) 1.16 1 0.85-1.17 [place] 519362-12-15 12:51:00 Test Item Value Reference Range Interpretation Comments PTT (test code = PTT) 36.9 s 22.9-35.8 [facility] CenterWrzmhweTUYEWVOAZH5598-97-98 12:51:00 Test Item Value Reference Range Interpretation Comments Retic Perf (test code = Yes (10/25/22 6:51 AM) Retic Perf) [facility] [id number] 12:51:00 Test Item Value Reference Range Interpretation Comments Retic Auto (test code = Retic Auto) 0.9 0.5-1.5 [facility]FlnizteOQBJTBPWVS7057-90-32 12:51:00 Test Item Value Reference Range Interpretation Comments Haptoglobin (test code = Haptoglobin) 152 16-200 [facility] WestWhtidewBPQZFCTEHV5304-81-65 12:51:00 Test Item Value Reference Range Interpretation Comments Haptoglobin (test code = Haptoglobin) 152 16-200 [facility]2022-12-15 12:51:00 Test Item Value Reference Range Interpretation Comments Ferritin Lvl (test code = Ferritin Lvl) 199 5-204 [facility]2022-12-15 12:51:00 Test Item Value Reference Range Interpretation Comments Iron (test code = Iron) 82 [facility]2022-12-15 12:51:00 Test Item Value Reference Range Interpretation Comments TIBC (test code = TIBC) 216 [facility] [id number] 12:51:00 Test Item Value Reference Range Interpretation Comments % Satur Fe (test code = % Satur Fe) 38 [facility]2022-12-15 12:51:00 Test Item Value Reference Range Interpretation Comments Folate Lvl (test code = Folate Lvl) 8.7 [facility]2022-12-15 12:51:00 Test Item Value Reference Range Interpretation Comments Vitamin B12 Lvl (test code = Vitamin 392 B12 Lvl) [facility] [id number] 12:51:00 Test Item Value Reference Range Interpretation Comments ABO/Rh (test code = ABO/Rh) A NEG [facility] [id number] 12:51:00 Test Item Value Reference Range Interpretation Comments Antibody Scrn (test Positive 3(10/25/22 code = Antibody Scrn) 6:51 AM) [facility] [id number] 12:51:00 Test Item Value Reference Range Interpretation Comments AB Int (test code = AB Int) Anti-D [facility] [employer] [id number] 12:51:00 Test Item Value Reference Range Interpretation Comments ABO/Rh (test code = ABO/Rh) A NEG [facility] [employer] [facility] [id number] 12:51:00 Test Item Value Reference Range Interpretation Comments Antibody Scrn (test Positive 6(10/25/22 code = Antibody Scrn) 6:51 AM) [facility] [employer] [facility] [id number] 12:51:00 Test Item Value Reference Range Interpretation Comments AB Int (test code = AB Int) Anti-D [facility] [employer] [id number] 12:51:00 Test Item Value Reference Range Interpretation Comments Glucose Lvl (test code = Glucose Lvl) 88 70-99 [facility] [employer] [id number] 12:51:00 Test Item Value Reference Range Interpretation Comments BUN (test code = BUN) 54 7-22 [facility] [employer] [id number] 12:51:00 Test Item Value Reference Range Interpretation Comments Creatinine Lvl (test code = Creatinine 1.53 0.50-1.40 Lvl) [facility] [employer] [id number] 12:51:00 Test Item Value Reference Range Interpretation Comments Sodium Lvl (test code = Sodium Lvl) 139 135-145 [facility] [employer] [id number] 12:51:00 Test Item Value Reference Range Interpretation Comments Potassium Lvl (test code = Potassium 4.4 3.5-5.1 Lvl) [facility] [employer] [id number] 12:51:00 Test Item Value Reference Range Interpretation Comments Chloride Lvl (test code = Chloride Lvl) 107 95-109 [facility] [employer] [id number] 12:51:00 Test Item Value Reference Range Interpretation Comments CO2 (test code = CO2) 26 24-32 [facility] [employer] [id number] 12:51:00 Test Item Value Reference Range Interpretation Comments Calcium Lvl (test code = Calcium Lvl) 7.7 8.5-10.5 [facility] [employer] [id number] 12:51:00 Test Item Value Reference Range Interpretation Comments Total Protein (test code = Total 6.0 6.4-8.4 Protein) [facility]ionJ[facility] [id number] 12:51:00 Test Item Value Reference Range Interpretation Comments Albumin Lvl (test code = Albumin Lvl) 2.2 3.5-5.0 [place] [id number] 12:51:00 Test Item Value Reference Range Interpretation Comments ALT (test code = ALT) 16 See_Comment [Auto mated message] The system which ge nerated this result transmit rosendo reference range : <=65. The reference range was not used to interpr et this result as josi l/abnormal. [facility] [id number] 12:51:00 Test Item Value Reference Range Interpretation Comments AST (test code = AST) 17 See_Comment [Auto mated message] The system which ge nerated this result transmit rosendo reference range : <=37. The reference range was not used to interpr et this result as josi l/abnormal. [facility] [id number] 12:51:00 Test Item Value Reference Range Interpretation Comments Alk Phos (test code = Alk Phos) 104 39-136 [facility] [id number] 12:51:00 Test Item Value Reference Range Interpretation Comments Bili Total (test code = Bili Total) 0.4 0.2-1.3 [facility] [id number] 12:51:00 Test Item Value Reference Range Interpretation Comments AGAP (test code = AGAP) 10.4 10.0-20.0 [facility] [id number] 12:51:00 Test Item Value Reference Range Interpretation Comments B/C Ratio (test code = B/C Ratio) 35 1 6-25 [facility] [id number] 12:51:00 Test Item Value Reference Range Interpretation Comments Globulin (test code = Globulin) 3.8 2.7-4.2 [facility] [id number] 12:51:00 Test Item Value Reference Range Interpretation Comments A/G Ratio (test code = A/G Ratio) 0.6 1 0.7-1.6 [facility] [id number] 12:51:00 Test Item Value Reference Range Interpretation Comments eGFR (test code = eGFR) 34 [facility] [id number] 12:51:00 Test Item Value Reference Range Interpretation Comments LDH (test code = LDH) 152 98-192 [facility] HospitalAcxtbenAFJGOZBMQ8508-99-48 12:51:00 Test Item Value Reference Range Interpretation Comments Ferritin Lvl (test code = Ferritin Lvl) 199 5-204 [facility] HospitalXzembghBEGPVWSKX8011-26-86 12:51:00 Test Item Value Reference Range Interpretation Comments Iron (test code = Iron) 82 45-160 [facility] HospitalYmfhijlHCXVBSKWL4854-43-68 12:51:00 Test Item Value Reference Range Interpretation Comments TIBC (test code = TIBC) 216 250-450 [facility] HospitalDahjozoNJYRLYOFN3750-26-80 12:51:00 Test Item Value Reference Range Interpretation Comments % Satur Fe (test code = % Satur Fe) 38 16-45 [facility] HospitalIcjakytYFFVBHUAD4072-62-72 12:51:00 Test Item Value Reference Range Interpretation Comments Folate Lvl (test code = Folate Lvl) 8.7 [facility] HospitalDaaofmsXNZQFZFQL5687-58-95 12:51:00 Test Item Value Reference Range Interpretation Comments Vitamin B12 Lvl (test code = Vitamin 475 045-4251 B12 Lvl) [facility] HospitalFvkmsisNWFZMLOLC2133-29-56 12:51:00 Test Item Value Reference Range Interpretation Comments LDH (test code = LDH) 152 98-192 [facility]KymltqmHAXIJSESEC6576-39-50 12:51:00 Test Item Value Reference Range Interpretation Comments PT (test code = PT) 14.7 s 12.0-14.7 [place] 519362-12-15 12:51:00 Test Item Value Reference Range Interpretation Comments INR (test code = INR) 1.16 1 0.85-1.17 [facility] CenterWzjwedpXGJJXJIPZR4180-58-32 12:51:00 Test Item Value Reference Range Interpretation Comments PTT (test code = PTT) 36.9 s 22.9-35.8 [place] [address]-12-15 12:51:00 Test Item Value Reference Range Interpretation Comments Retic Perf (test code = Yes (10/25/22 6:51 AM) Retic Perf) [place] 519362-12-15 12:51:00 Test Item Value Reference Range Interpretation Comments Retic Auto (test code = Retic Auto) 0.9 0.5-1.5 [place] 519362-12-15 12:51:00 Test Item Value Reference Range Interpretation Comments PT (test code = PT) 14.7 s 12.0-14.7 [facility] CenterSmpbecxVLTOFZUCEZ3461-00-94 12:51:00 Test Item Value Reference Range Interpretation Comments INR (test code = INR) 1.16 1 0.85-1.17 [facility] CenterOdsnckrNGHDIGYYIV8686-66-00 12:51:00 Test Item Value Reference Range Interpretation Comments PTT (test code = PTT) 36.9 s 22.9-35.8 [facility] CenterAaxodfoNVPZREOABI6054-71-88 12:51:00 Test Item Value Reference Range Interpretation Comments Retic Perf (test code = Yes (10/25/22 6:51 AM) Retic Perf) [facility] CenterWpmpjehVMHURIEGZP3839-30-50 12:51:00 Test Item Value Reference Range Interpretation Comments Retic Auto (test code = Retic Auto) 0.9 0.5-1.5 [facility] WestYqopycwGUGSYSNARE3723-98-62 12:51:00 Test Item Value Reference Range Interpretation Comments Haptoglobin (test code = Haptoglobin) 152 16-200 [facility] WestZqmfmnzMNZKPFJAQJ0102-65-99 12:51:00 Test Item Value Reference Range Interpretation Comments Haptoglobin (test code = Haptoglobin) 152 16-200 [facility] [id number] 12:51:00 Test Item Value Reference Range Interpretation Comments Ferritin Lvl (test code = Ferritin Lvl) 199 5-204 [facility] [id number] 12:51:00 Test Item Value Reference Range Interpretation Comments Iron (test code = Iron) 82 [facility]2022-12-15 12:51:00 Test Item Value Reference Range Interpretation Comments TIBC (test code = TIBC) 216 [facility]2022-12-15 12:51:00 Test Item Value Reference Range Interpretation Comments % Satur Fe (test code = % Satur Fe) 38 [facility]2022-12-15 12:51:00 Test Item Value Reference Range Interpretation Comments Folate Lvl (test code = Folate Lvl) 8.7 [facility]2022-12-15 12:51:00 Test Item Value Reference Range Interpretation Comments Vitamin B12 Lvl (test code = Vitamin 392 B12 Lvl) [facility] [id number] 12:51:00 Test Item Value Reference Range Interpretation Comments ABO/Rh (test code = ABO/Rh) A NEG [facility] [employer] [id number] 12:51:00 Test Item Value Reference Range Interpretation Comments Antibody Scrn (test Positive 3(10/25/22 code = Antibody Scrn) 6:51 AM) [facility] [employer] [id number] 12:51:00 Test Item Value Reference Range Interpretation Comments AB Int (test code = AB Int) Anti-D [facility] [employer] [id number] 12:51:00 Test Item Value Reference Range Interpretation Comments ABO/Rh (test code = ABO/Rh) A NEG [facility] [employer] [id number] 12:51:00 Test Item Value Reference Range Interpretation Comments Antibody Scrn (test Positive 6(10/25/22 code = Antibody Scrn) 6:51 AM) [facility] [employer] [id number] 12:51:00 Test Item Value Reference Range Interpretation Comments AB Int (test code = AB Int) Anti-D [facility] [employer] [id number] 12:51:00 Test Item Value Reference Range Interpretation Comments Glucose Lvl (test code = Glucose Lvl) 88 70-99 [facility] [employer] [id number] 12:51:00 Test Item Value Reference Range Interpretation Comments BUN (test code = BUN) 54 7-22 [facility] [employer] [id number] 12:51:00 Test Item Value Reference Range Interpretation Comments Creatinine Lvl (test code = Creatinine 1.53 0.50-1.40 Lvl) [facility] [employer] [id number] 12:51:00 Test Item Value Reference Range Interpretation Comments Sodium Lvl (test code = Sodium Lvl) 139 135-145 [facility] [employer] [id number] 12:51:00 Test Item Value Reference Range Interpretation Comments Potassium Lvl (test code = Potassium 4.4 3.5-5.1 Lvl) [facility] [employer] [id number] 12:51:00 Test Item Value Reference Range Interpretation Comments Chloride Lvl (test code = Chloride Lvl) 107 95-109 [facility] [employer] [id number] 12:51:00 Test Item Value Reference Range Interpretation Comments CO2 (test code = CO2) 26 24-32 [facility] [id number] 12:51:00 Test Item Value Reference Range Interpretation Comments Calcium Lvl (test code = Calcium Lvl) 7.7 8.5-10.5 [facility] ResourcesSaperionREBECCA [place] [id number] 12:51:00 Test Item Value Reference Range Interpretation Comments Total Protein (test code = Total 6.0 6.4-8.4 Protein) [facility] ResourcesSaperionJERRY [place] [id number] 12:51:00 Test Item Value Reference Range Interpretation Comments Albumin Lvl (test code = Albumin Lvl) 2.2 3.5-5.0 [facility] [id number] 12:51:00 Test Item Value Reference Range Interpretation Comments ALT (test code = ALT) 16 See_Comment [Auto mated message] The system which ge nerated this result transmit rosendo reference range : <=65. The reference range was not used to interpr et this result as josi l/abnormal. [facility] [id number] 12:51:00 Test Item Value Reference Range Interpretation Comments AST (test code = AST) 17 See_Comment [Auto mated message] The system which ge nerated this result transmit rosendo reference range : <=37. The reference range was not used to interpr et this result as josi l/abnormal. [facility] [id number] 12:51:00 Test Item Value Reference Range Interpretation Comments Alk Phos (test code = Alk Phos) 104 39-136 [facility] [id number] 12:51:00 Test Item Value Reference Range Interpretation Comments Bili Total (test code = Bili Total) 0.4 0.2-1.3 [facility] [id number] 12:51:00 Test Item Value Reference Range Interpretation Comments AGAP (test code = AGAP) 10.4 10.0-20.0 [facility] [id number] 12:51:00 Test Item Value Reference Range Interpretation Comments B/C Ratio (test code = B/C Ratio) 35 1 6-25 [facility] [id number] 12:51:00 Test Item Value Reference Range Interpretation Comments Globulin (test code = Globulin) 3.8 2.7-4.2 [facility] [id number] 12:51:00 Test Item Value Reference Range Interpretation Comments A/G Ratio (test code = A/G Ratio) 0.6 1 0.7-1.6 [facility]2022-12-15 12:51:00 Test Item Value Reference Range Interpretation Comments eGFR (test code = eGFR) 34 [facility]2022-12-15 12:51:00 Test Item Value Reference Range Interpretation Comments LDH (test code = LDH) 152 98-192 [place] 930682-12-15 12:51:00 Test Item Value Reference Range Interpretation Comments Ferritin Lvl (test code = Ferritin Lvl) 199 5-204 [place] [address]-12-15 12:51:00 Test Item Value Reference Range Interpretation Comments Iron (test code = Iron) 82 45-160 [place] 930682-12-15 12:51:00 Test Item Value Reference Range Interpretation Comments TIBC (test code = TIBC) 216 250-450 [place] 930682-12-15 12:51:00 Test Item Value Reference Range Interpretation Comments % Satur Fe (test code = % Satur Fe) 38 16-45 [place] [address]-12-15 12:51:00 Test Item Value Reference Range Interpretation Comments Folate Lvl (test code = Folate Lvl) 8.7 [facility]FMSQAVFY7903[facility] 12:51:00 Test Item Value Reference Range Interpretation Comments Vitamin B12 Lvl (test code = Vitamin 242 118-9604 B12 Lvl) [facility] HospitalItjzehyMZYJOMRNO2067-65-88 12:51:00 Test Item Value Reference Range Interpretation Comments LDH (test code = LDH) 152 98-192 [place] 519362-12-15 12:51:00 Test Item Value Reference Range Interpretation Comments PT (test code = PT) 14.7 s 12.0-14.7 [place] [address]-12-15 12:51:00 Test Item Value Reference Range Interpretation Comments INR (test code = INR) 1.16 1 0.85-1.17 [place] [address]-12-15 12:51:00 Test Item Value Reference Range Interpretation Comments PTT (test code = PTT) 36.9 s 22.9-35.8 [place] [address]-12-15 12:51:00 Test Item Value Reference Range Interpretation Comments Retic Perf (test code = Yes (12/15/22 6:51 AM) Retic Perf) [facility]DHDGOSUEX2753[facility]-07 12:51:00 Test Item Value Reference Range Interpretation Comments Retic Auto (test code = Retic Auto) 0.9 0.5-1.5 [facility] CenterFhryephTXJHLANQQM4387-64-71 12:51:00 Test Item Value Reference Range Interpretation Comments PT (test code = PT) 14.7 s 12.0-14.7 [facility] CenterVnmwkmzFEOIJCFRKQ3679-16-27 12:51:00 Test Item Value Reference Range Interpretation Comments INR (test code = INR) 1.16 1 0.85-1.17 [facility] CenterOrghwgjAUDRVNLJTO8442-01-88 12:51:00 Test Item Value Reference Range Interpretation Comments PTT (test code = PTT) 36.9 s 22.9-35.8 [facility] CenterVtwsyjtIGQPDWPVUA5967-60-17 12:51:00 Test Item Value Reference Range Interpretation Comments Retic Perf (test code = Yes (10/25/22 6:51 AM) Retic Perf) [facility] CenterYcrlykfJOWKQFEYNV0500-26-61 12:51:00 Test Item Value Reference Range Interpretation Comments Retic Auto (test code = Retic Auto) 0.9 0.5-1.5 [facility]hndmpjJYFKMAHOUJ7873-32-27 12:51:00 Test Item Value Reference Range Interpretation Comments Haptoglobin (test code = Haptoglobin) 152 16-200 [place] 106782-12-15 12:51:00 Test Item Value Reference Range Interpretation Comments Haptoglobin (test code = Haptoglobin) 152 16-200 [facility]2022-12-15 12:51:00 Test Item Value Reference Range Interpretation Comments Ferritin Lvl (test code = Ferritin Lvl) 199 5-204 [facility]2022-12-15 12:51:00 Test Item Value Reference Range Interpretation Comments Iron (test code = Iron) 82 [facility]2022-12-15 12:51:00 Test Item Value Reference Range Interpretation Comments TIBC (test code = TIBC) 216 [facility]2022-12-15 12:51:00 Test Item Value Reference Range Interpretation Comments % Satur Fe (test code = % Satur Fe) 38 [facility]2022-12-15 12:51:00 Test Item Value Reference Range Interpretation Comments Folate Lvl (test code = Folate Lvl) 8.7 [facility] [id number] 12:51:00 Test Item Value Reference Range Interpretation Comments Vitamin B12 Lvl (test code = Vitamin 392 B12 Lvl) [facility] [id number] 12:51:00 Test Item Value Reference Range Interpretation Comments ABO/Rh (test code = ABO/Rh) A NEG [facility] [id number] 12:51:00 Test Item Value Reference Range Interpretation Comments Antibody Scrn (test Positive 3(10/25/22 code = Antibody Scrn) 6:51 AM) [facility] [id number] 12:51:00 Test Item Value Reference Range Interpretation Comments AB Int (test code = AB Int) Anti-D [facility] [id number] 12:51:00 Test Item Value Reference Range Interpretation Comments ABO/Rh (test code = ABO/Rh) A NEG [facility] [id number] 12:51:00 Test Item Value Reference Range Interpretation Comments Antibody Scrn (test Positive 6(10/25/22 code = Antibody Scrn) 6:51 AM) [facility] [id number] 12:51:00 Test Item Value Reference Range Interpretation Comments AB Int (test code = AB Int) Anti-D [facility]2022-12-15 12:51:00 Test Item Value Reference Range Interpretation Comments Glucose Lvl (test code = Glucose Lvl) 88 70-99 [facility] [id number] 12:51:00 Test Item Value Reference Range Interpretation Comments BUN (test code = BUN) 54 7-22 [facility] [id number] 12:51:00 Test Item Value Reference Range Interpretation Comments Creatinine Lvl (test code = Creatinine 1.53 0.50-1.40 Lvl) [facility] [id number] 12:51:00 Test Item Value Reference Range Interpretation Comments Sodium Lvl (test code = Sodium Lvl) 139 135-145 [facility] [id number] 12:51:00 Test Item Value Reference Range Interpretation Comments Potassium Lvl (test code = Potassium 4.4 3.5-5.1 Lvl) [facility] ResourcesSaperionREBECCA VILLE [id number] 12:51:00 Test Item Value Reference Range Interpretation Comments Chloride Lvl (test code = Chloride Lvl) 107 95-109 [place] 542562-12-15 12:51:00 Test Item Value Reference Range Interpretation Comments CO2 (test code = CO2) 26 24-32 [place] [address]-12-15 12:51:00 Test Item Value Reference Range Interpretation Comments Calcium Lvl (test code = Calcium Lvl) 7.7 8.5-10.5 [place] 542562-12-15 12:51:00 Test Item Value Reference Range Interpretation Comments Total Protein (test code = Total 6.0 6.4-8.4 Protein) [place] 542562-12-15 12:51:00 Test Item Value Reference Range Interpretation Comments Albumin Lvl (test code = Albumin Lvl) 2.2 3.5-5.0 [place] 542562-12-15 12:51:00 Test Item Value Reference Range Interpretation Comments ALT (test code = ALT) 16 See_Comment [Auto mated message] The system which ge nerated this result transmit rosendo reference range : <=65. The reference range was not used to interpr et this result as josi l/abnormal. [facility] [id number] 12:51:00 Test Item Value Reference Range Interpretation Comments AST (test code = AST) 17 See_Comment [Auto mated message] The system which ge nerated this result transmit rosendo reference range : <=37. The reference range was not used to interpr et this result as josi l/abnormal. [facility] [id number] 12:51:00 Test Item Value Reference Range Interpretation Comments Alk Phos (test code = Alk Phos) 104 39-136 [facility] [id number] 12:51:00 Test Item Value Reference Range Interpretation Comments Bili Total (test code = Bili Total) 0.4 0.2-1.3 [place] [address]-12-15 12:51:00 Test Item Value Reference Range Interpretation Comments AGAP (test code = AGAP) 10.4 10.0-20.0 [facility] [place] [facility] [id number] 12:51:00 Test Item Value Reference Range Interpretation Comments B/C Ratio (test code = B/C Ratio) 35 1 6-25 [place] [address]-12-15 12:51:00 Test Item Value Reference Range Interpretation Comments Globulin (test code = Globulin) 3.8 2.7-4.2 [place] 542562-12-15 12:51:00 Test Item Value Reference Range Interpretation Comments A/G Ratio (test code = A/G Ratio) 0.6 1 0.7-1.6 [place] 542562-12-15 12:51:00 Test Item Value Reference Range Interpretation Comments eGFR (test code = eGFR) 34 [place] 542562-12-15 12:51:00 Test Item Value Reference Range Interpretation Comments LDH (test code = LDH) 152 98-192 [place] 930682-12-15 12:51:00 Test Item Value Reference Range Interpretation Comments Ferritin Lvl (test code = Ferritin Lvl) 199 5-204 [facility] HospitalEwhlxcuQFRIEKDFL6546-95-11 12:51:00 Test Item Value Reference Range Interpretation Comments Iron (test code = Iron) 82 45-160 [facility] HospitalVnkgfinRPYRJRNBZ8570-81-03 12:51:00 Test Item Value Reference Range Interpretation Comments TIBC (test code = TIBC) 216 250-450 [facility] HospitalQctrzcdPFVESQXRX3911-63-99 12:51:00 Test Item Value Reference Range Interpretation Comments % Satur Fe (test code = % Satur Fe) 38 16-45 [place] 930682-12-15 12:51:00 Test Item Value Reference Range Interpretation Comments Folate Lvl (test code = Folate Lvl) 8.7 [facility] HospitalYxhzsmyYITRHYTLF1061-30-34 12:51:00 Test Item Value Reference Range Interpretation Comments Vitamin B12 Lvl (test code = Vitamin 594 658-9149 B12 Lvl) [place] 930682-12-15 12:51:00 Test Item Value Reference Range Interpretation Comments LDH (test code = LDH) 152 98-192 [place] 519362-12-15 12:51:00 Test Item Value Reference Range Interpretation Comments PT (test code = PT) 14.7 s 12.0-14.7 [place] 519362-12-15 12:51:00 Test Item Value Reference Range Interpretation Comments INR (test code = INR) 1.16 1 0.85-1.17 [facility]AqnjtteIZYEYXJXHL6737-99-47 12:51:00 Test Item Value Reference Range Interpretation Comments PTT (test code = PTT) 36.9 s 22.9-35.8 [facility] CenterIpaiitwBJZBINYBZF7741-44-36 12:51:00 Test Item Value Reference Range Interpretation Comments Retic Perf (test code = Yes (10/25/22 6:51 AM) Retic Perf) [facility] CenterFyuknajFLQUQLAEAL3956-94-18 12:51:00 Test Item Value Reference Range Interpretation Comments Retic Auto (test code = Retic Auto) 0.9 0.5-1.5 [facility] CenterUiadgpfPHIYMQTOWY8205-67-78 12:51:00 Test Item Value Reference Range Interpretation Comments PT (test code = PT) 14.7 s 12.0-14.7 [facility] CenterDffzcusQDZDDTHPUB9782-82-54 12:51:00 Test Item Value Reference Range Interpretation Comments INR (test code = INR) 1.16 1 0.85-1.17 [facility] CenterSxprfvzQXQAOPZXKS3156-96-25 12:51:00 Test Item Value Reference Range Interpretation Comments PTT (test code = PTT) 36.9 s 22.9-35.8 [facility] CenterNhmcwwzXWFONCBZCR0711-11-95 12:51:00 Test Item Value Reference Range Interpretation Comments Retic Perf (test code = Yes (10/25/22 6:51 AM) Retic Perf) [facility] CenterPmpldexKWFZAHVPQU4747-77-09 12:51:00 Test Item Value Reference Range Interpretation Comments Retic Auto (test code = Retic Auto) 0.9 0.5-1.5 [facility] WestDiceoddQYTWDNOWCU4398-97-41 12:51:00 Test Item Value Reference Range Interpretation Comments Haptoglobin (test code = Haptoglobin) 152 16-200 [facility] WestJaxpelmAIOGBGRETA6810-56-70 12:51:00 Test Item Value Reference Range Interpretation Comments Haptoglobin (test code = Haptoglobin) 152 16-200 [facility]2022-12-15 12:51:00 Test Item Value Reference Range Interpretation Comments Ferritin Lvl (test code = Ferritin Lvl) 199 5-204 [facility]2022-12-15 12:51:00 Test Item Value Reference Range Interpretation Comments Iron (test code = Iron) 82 [facility]2022-12-15 12:51:00 Test Item Value Reference Range Interpretation Comments TIBC (test code = TIBC) 216 [facility] [id number] 12:51:00 Test Item Value Reference Range Interpretation Comments % Satur Fe (test code = % Satur Fe) 38 [facility] [id number] 12:51:00 Test Item Value Reference Range Interpretation Comments Folate Lvl (test code = Folate Lvl) 8.7 [facility]2022-12-15 12:51:00 Test Item Value Reference Range Interpretation Comments Vitamin B12 Lvl (test code = Vitamin 392 B12 Lvl) [facility] [id number] 12:51:00 Test Item Value Reference Range Interpretation Comments ABO/Rh (test code = ABO/Rh) A NEG [facility] [id number] 12:51:00 Test Item Value Reference Range Interpretation Comments Antibody Scrn (test Positive 3(10/25/22 code = Antibody Scrn) 6:51 AM) [facility] [id number] 12:51:00 Test Item Value Reference Range Interpretation Comments AB Int (test code = AB Int) Anti-D [facility] Resources[facility]aperionN[facility] [id number] 12:51:00 Test Item Value Reference Range Interpretation Comments ABO/Rh (test code = ABO/Rh) A NEG [facility] [employer] [facility] [id number] 12:51:00 Test Item Value Reference Range Interpretation Comments Antibody Scrn (test Positive 6(10/25/22 code = Antibody Scrn) 6:51 AM) [facility] [employer] [facility] [id number] 12:51:00 Test Item Value Reference Range Interpretation Comments AB Int (test code = AB Int) Anti-D [facility] [employer] [id number] 12:51:00 Test Item Value Reference Range Interpretation Comments Glucose Lvl (test code = Glucose Lvl) 88 70-99 [facility] [employer] [id number] 12:51:00 Test Item Value Reference Range Interpretation Comments BUN (test code = BUN) 54 7-22 [facility] [employer] [id number] 12:51:00 Test Item Value Reference Range Interpretation Comments Creatinine Lvl (test code = Creatinine 1.53 0.50-1.40 Lvl) [place] 542562-12-15 12:51:00 Test Item Value Reference Range Interpretation Comments Sodium Lvl (test code = Sodium Lvl) 139 135-145 [place] 542562-12-15 12:51:00 Test Item Value Reference Range Interpretation Comments Potassium Lvl (test code = Potassium 4.4 3.5-5.1 Lvl) [address]12-15 12:51:00 Test Item Value Reference Range Interpretation Comments Chloride Lvl (test code = Chloride Lvl) 107 95-109 [place] [address]-12-15 12:51:00 Test Item Value Reference Range Interpretation Comments CO2 (test code = CO2) 26 24-32 [place] [address]-12-15 12:51:00 Test Item Value Reference Range Interpretation Comments Calcium Lvl (test code = Calcium Lvl) 7.7 8.5-10.[address]12-15 12:51:00 Test Item Value Reference Range Interpretation Comments Total Protein (test code = Total 6.0 6.4-8.4 Protein) [place] [address]-12-15 12:51:00 Test Item Value Reference Range Interpretation Comments Albumin Lvl (test code = Albumin Lvl) 2.2 3.5-5.0 [place] 542562-12-15 12:51:00 Test Item Value Reference Range Interpretation Comments ALT (test code = ALT) 16 See_Comment [Auto mated message] The system which ge nerated this result transmit rosendo reference range : <=65. The reference range was not used to interpr et this result as josi l/abnormal. [place] 542562-12-15 12:51:00 Test Item Value Reference Range Interpretation Comments AST (test code = AST) 17 See_Comment [Auto mated message] The system which ge nerated this result transmit rosendo reference range : <=37. The reference range was not used to interpr et this result as josi l/abnormal. [place] [address]-12-15 12:51:00 Test Item Value Reference Range Interpretation Comments Alk Phos (test code = Alk Phos) 104 39-136 [place] 542562-12-15 12:51:00 Test Item Value Reference Range Interpretation Comments Bili Total (test code = Bili Total) 0.4 0.2-1.3 [facility]2022-12-15 12:51:00 Test Item Value Reference Range Interpretation Comments AGAP (test code = AGAP) 10.4 10.0-20.0 [place] 542562-12-15 12:51:00 Test Item Value Reference Range Interpretation Comments B/C Ratio (test code = B/C Ratio) 35 1 6-25 [place] 542562-12-15 12:51:00 Test Item Value Reference Range Interpretation Comments Globulin (test code = Globulin) 3.8 2.7-4.2 [place] 542562-12-15 12:51:00 Test Item Value Reference Range Interpretation Comments A/G Ratio (test code = A/G Ratio) 0.6 1 0.7-1.6 [place] 542562-12-15 12:51:00 Test Item Value Reference Range Interpretation Comments eGFR (test code = eGFR) 34 [facility]2022-12-15 12:51:00 Test Item Value Reference Range Interpretation Comments LDH (test code = LDH) 152 98-192 [facility] HospitalYidhlqqWNUOPWOCJ9815-28-75 12:51:00 Test Item Value Reference Range Interpretation Comments Ferritin Lvl (test code = Ferritin Lvl) 199 5-204 [facility] HospitalAzmwagiRDNCMTNZX3791-25-72 12:51:00 Test Item Value Reference Range Interpretation Comments Iron (test code = Iron) 82 45-160 [place] 930682-12-15 12:51:00 Test Item Value Reference Range Interpretation Comments TIBC (test code = TIBC) 216 250-450 [facility] HospitalFhspipdBCTFDKMII2055-21-89 12:51:00 Test Item Value Reference Range Interpretation Comments % Satur Fe (test code = % Satur Fe) 38 16-45 [place] 930682-12-15 12:51:00 Test Item Value Reference Range Interpretation Comments Folate Lvl (test code = Folate Lvl) 8.7 [facility] HospitalIjwlumbRJFVDQRPU1564-80-13 12:51:00 Test Item Value Reference Range Interpretation Comments Vitamin B12 Lvl (test code = Vitamin 489 104-8327 B12 Lvl) [facility] HospitalHixtvldMBEHUXPNH7223-61-56 12:51:00 Test Item Value Reference Range Interpretation Comments LDH (test code = LDH) 152 98-192 [facility] CenterBflddswNZTJPDGKLT4211-67-94 12:51:00 Test Item Value Reference Range Interpretation Comments PT (test code = PT) 14.7 s 12.0-14.7 [facility] CenterDaaaykaHXNZPUOLBS3317-44-19 12:51:00 Test Item Value Reference Range Interpretation Comments INR (test code = INR) 1.16 1 0.85-1.17 [facility] CenterBmvxvzjVLVNQPBYPI6883-29-52 12:51:00 Test Item Value Reference Range Interpretation Comments PTT (test code = PTT) 36.9 s 22.9-35.8 [facility] CenterVognpkxTGWRTZDQYJ9687-65-30 12:51:00 Test Item Value Reference Range Interpretation Comments Retic Perf (test code = Yes (10/25/22 6:51 AM) Retic Perf) [facility] CenterAyrgkizEQYWBWECVM2133-30-68 12:51:00 Test Item Value Reference Range Interpretation Comments Retic Auto (test code = Retic Auto) 0.9 0.5-1.5 [facility] CenterNqkklbpVHUTTARNNM5260-53-77 12:51:00 Test Item Value Reference Range Interpretation Comments PT (test code = PT) 14.7 s 12.0-14.7 [facility] CenterTarpewsADFPCSGNHJ7720-06-56 12:51:00 Test Item Value Reference Range Interpretation Comments INR (test code = INR) 1.16 1 0.85-1.17 [facility] CenterIsbvgztSNYPVKDAAB6859-02-93 12:51:00 Test Item Value Reference Range Interpretation Comments PTT (test code = PTT) 36.9 s 22.9-35.8 [facility] CenterBeanqvsOIQUGOUTTY6764-49-26 12:51:00 Test Item Value Reference Range Interpretation Comments Retic Perf (test code = Yes (10/25/22 6:51 AM) Retic Perf) [facility] CenterVsoytplRZKKZGFESI2165-13-85 12:51:00 Test Item Value Reference Range Interpretation Comments Retic Auto (test code = Retic Auto) 0.9 0.5-1.5 [facility] WestGfhwffqUHIIBGIQPI2507-25-55 12:51:00 Test Item Value Reference Range Interpretation Comments Haptoglobin (test code = Haptoglobin) 152 16-200 [facility] WestAqgocskZXCWZHQXAL3628-15-75 12:51:00 Test Item Value Reference Range Interpretation Comments Haptoglobin (test code = Haptoglobin) 152 16-200 [place] 712142-12-15 12:51:00 Test Item Value Reference Range Interpretation Comments Ferritin Lvl (test code = Ferritin Lvl) 199 5-204 [facility] [id number] 12:51:00 Test Item Value Reference Range Interpretation Comments Iron (test code = Iron) 82 [facility] [id number] 12:51:00 Test Item Value Reference Range Interpretation Comments TIBC (test code = TIBC) 216 [facility] [id number] 12:51:00 Test Item Value Reference Range Interpretation Comments % Satur Fe (test code = % Satur Fe) 38 [facility] QMPOI7596-11-19 12:51:00 Test Item Value Reference Range Interpretation Comments Folate Lvl (test code = Folate Lvl) 8.7 [facility]2022-12-15 12:51:00 Test Item Value Reference Range Interpretation Comments Vitamin B12 Lvl (test code = Vitamin 392 B12 Lvl) [facility] ResourcesSaperionBall[facility] Securities [id number] 12:51:00 Test Item Value Reference Range Interpretation Comments ABO/Rh (test code = ABO/Rh) A NEG [facility] [employer] [id number] 12:51:00 Test Item Value Reference Range Interpretation Comments Antibody Scrn (test Positive 3(10/25/22 code = Antibody Scrn) 6:51 AM) [facility] ResourcesRipple TV [id number] 12:51:00 Test Item Value Reference Range Interpretation Comments AB Int (test code = AB Int) Anti-D [facility] ResourcesBliips [facility] [id number] 12:51:00 Test Item Value Reference Range Interpretation Comments ABO/Rh (test code = ABO/Rh) A NEG [facility] [employer] [facility] [id number] 12:51:00 Test Item Value Reference Range Interpretation Comments Antibody Scrn (test Positive 6(10/25/22 code = Antibody Scrn) 6:51 AM) [facility] [employer] [id number] 12:51:00 Test Item Value Reference Range Interpretation Comments AB Int (test code = AB Int) Anti-D [facility] [employer] [id number] 12:51:00 Test Item Value Reference Range Interpretation Comments Glucose Lvl (test code = Glucose Lvl) 88 70-[address]12-15 12:51:00 Test Item Value Reference Range Interpretation Comments BUN (test code = BUN) 54 7-[address]12-15 12:51:00 Test Item Value Reference Range Interpretation Comments Creatinine Lvl (test code = Creatinine 1.53 0.50-1.40 Lvl) [address]12-15 12:51:00 Test Item Value Reference Range Interpretation Comments Sodium Lvl (test code = Sodium Lvl) 139 135-145 [address]12-15 12:51:00 Test Item Value Reference Range Interpretation Comments Potassium Lvl (test code = Potassium 4.4 3.5-5.1 Lvl) [address]12-15 12:51:00 Test Item Value Reference Range Interpretation Comments Chloride Lvl (test code = Chloride Lvl) 107 95-[address]12-15 12:51:00 Test Item Value Reference Range Interpretation Comments CO2 (test code = CO2) 26 24-[address]12-15 12:51:00 Test Item Value Reference Range Interpretation Comments Calcium Lvl (test code = Calcium Lvl) 7.7 8.5-10.[address]12-15 12:51:00 Test Item Value Reference Range Interpretation Comments Total Protein (test code = Total 6.0 6.4-8.4 Protein) [address]15 12:51:00 Test Item Value Reference Range Interpretation Comments Albumin Lvl (test code = Albumin Lvl) 2.2 3.5-5.[address]12-15 12:51:00 Test Item Value Reference Range Interpretation Comments ALT (test code = ALT) 16 See_Comment [Auto mated message] The system which ge nerated this result transmit rosendo reference range : <=65. The reference range was not used to interpr et this result as josi l/abnormal. [address]12-15 12:51:00 Test Item Value Reference Range Interpretation Comments AST (test code = AST) 17 See_Comment [Auto mated message] The system which ge nerated this result transmit rosendo reference range : <=37. The reference range was not used to interpr et this result as josi l/abnormal. [facility]2022-12-15 12:51:00 Test Item Value Reference Range Interpretation Comments Alk Phos (test code = Alk Phos) 104 39-136 [place] 542562-12-15 12:51:00 Test Item Value Reference Range Interpretation Comments Bili Total (test code = Bili Total) 0.4 0.2-1.3 [place] 542562-12-15 12:51:00 Test Item Value Reference Range Interpretation Comments AGAP (test code = AGAP) 10.4 10.0-20.0 [place] 542562-12-15 12:51:00 Test Item Value Reference Range Interpretation Comments B/C Ratio (test code = B/C Ratio) 35 1 6-25 [place] 542562-12-15 12:51:00 Test Item Value Reference Range Interpretation Comments Globulin (test code = Globulin) 3.8 2.7-4.2 [place] 542562-12-15 12:51:00 Test Item Value Reference Range Interpretation Comments A/G Ratio (test code = A/G Ratio) 0.6 1 0.7-1.6 [place] 542562-12-15 12:51:00 Test Item Value Reference Range Interpretation Comments eGFR (test code = eGFR) 34 [facility]2022-12-15 12:51:00 Test Item Value Reference Range Interpretation Comments LDH (test code = LDH) 152 98-192 [facility]ndnoygAYWEYCOWG5671-88-70 12:51:00 Test Item Value Reference Range Interpretation Comments Ferritin Lvl (test code = Ferritin Lvl) 199 5-204 [place] [address]-12-15 12:51:00 Test Item Value Reference Range Interpretation Comments Iron (test code = Iron) 82 45-160 [place] 930682-12-15 12:51:00 Test Item Value Reference Range Interpretation Comments TIBC (test code = TIBC) 216 250-450 [place] 930682-12-15 12:51:00 Test Item Value Reference Range Interpretation Comments % Satur Fe (test code = % Satur Fe) 38 16-45 [place] 930682-12-15 12:51:00 Test Item Value Reference Range Interpretation Comments Folate Lvl (test code = Folate Lvl) 8.7 [facility] HospitalSozhupuQCDGBTHEV5512-90-88 12:51:00 Test Item Value Reference Range Interpretation Comments Vitamin B12 Lvl (test code = Vitamin 978 563-3705 B12 Lvl) [facility] HospitalAsijjteBBNAROIAH1537-22-20 12:51:00 Test Item Value Reference Range Interpretation Comments LDH (test code = LDH) 152 98-192 [facility]fguiqfRVGUWMGDKW9703-58-38 12:51:00 Test Item Value Reference Range Interpretation Comments PT (test code = PT) 14.7 s 12.0-14.7 [place] [address]-12-15 12:51:00 Test Item Value Reference Range Interpretation Comments INR (test code = INR) 1.16 1 0.85-1.17 [place] [address]-12-15 12:51:00 Test Item Value Reference Range Interpretation Comments PTT (test code = PTT) 36.9 s 22.9-35.8 [place] [address]-12-15 12:51:00 Test Item Value Reference Range Interpretation Comments Retic Perf (test code = Yes (10/25/22 6:51 AM) Retic Perf) [facility] CenterGuigsznTMZQFXTBYZ6701-67-25 12:51:00 Test Item Value Reference Range Interpretation Comments Retic Auto (test code = Retic Auto) 0.9 0.5-1.5 [place] [address]-12-15 12:51:00 Test Item Value Reference Range Interpretation Comments PT (test code = PT) 14.7 s 12.0-14.7 [place] [address]-12-15 12:51:00 Test Item Value Reference Range Interpretation Comments INR (test code = INR) 1.16 1 0.85-1.17 [place] [address]-12-15 12:51:00 Test Item Value Reference Range Interpretation Comments PTT (test code = PTT) 36.9 s 22.9-35.8 [place] [address]-12-15 12:51:00 Test Item Value Reference Range Interpretation Comments Retic Perf (test code = Yes (10/25/22 6:51 AM) Retic Perf) [place] 519362-12-15 12:51:00 Test Item Value Reference Range Interpretation Comments Retic Auto (test code = Retic Auto) 0.9 0.5-1.5 [facility]heufzEQAHCHYOYQ3527[facility]90-78 12:51:00 Test Item Value Reference Range Interpretation Comments Haptoglobin (test code = Haptoglobin) 152 16-200 [facility] WestSijytqtJPBLRDWWPE6651-68-65 12:51:00 Test Item Value Reference Range Interpretation Comments Haptoglobin (test code = Haptoglobin) 152 16-200 [facility] DBAUY6418-11-40 12:51:00 Test Item Value Reference Range Interpretation Comments Ferritin Lvl (test code = Ferritin Lvl) 199 5-204 [facility] KKWEI4622-52-65 12:51:00 Test Item Value Reference Range Interpretation Comments Iron (test code = Iron) 82 [facility]2022-12-15 12:51:00 Test Item Value Reference Range Interpretation Comments TIBC (test code = TIBC) 216 [facility]2022-12-15 12:51:00 Test Item Value Reference Range Interpretation Comments % Satur Fe (test code = % Satur Fe) 38 [facility] [id number] 12:51:00 Test Item Value Reference Range Interpretation Comments Folate Lvl (test code = Folate Lvl) 8.7 [facility]2022-12-15 12:51:00 Test Item Value Reference Range Interpretation Comments Vitamin B12 Lvl (test code = Vitamin 392 B12 Lvl) [facility] [id number] 12:51:00 Test Item Value Reference Range Interpretation Comments ABO/Rh (test code = ABO/Rh) A NEG [facility] WZAQKYP3687-01-40 12:51:00 Test Item Value Reference Range Interpretation Comments Antibody Scrn (test Positive 3(10/25/22 code = Antibody Scrn) 6:51 AM) [facility] BQTUYCQ0412-08-40 12:51:00 Test Item Value Reference Range Interpretation Comments AB Int (test code = AB Int) Anti-D [facility] [id number] 12:51:00 Test Item Value Reference Range Interpretation Comments ABO/Rh (test code = ABO/Rh) A NEG [facility] WSHRFPH1908-11-40 12:51:00 Test Item Value Reference Range Interpretation Comments Antibody Scrn (test Positive 6(10/25/22 code = Antibody Scrn) 6:51 AM) [facility] [id number] 12:51:00 Test Item Value Reference Range Interpretation Comments AB Int (test code = AB Int) Anti-D [facility]2022-12-15 12:51:00 Test Item Value Reference Range Interpretation Comments Glucose Lvl (test code = Glucose Lvl) 88 70-99 [facility]2022-12-15 12:51:00 Test Item Value Reference Range Interpretation Comments BUN (test code = BUN) 54 7-22 [facility]2022-12-15 12:51:00 Test Item Value Reference Range Interpretation Comments Creatinine Lvl (test code = Creatinine 1.53 0.50-1.40 Lvl) [facility]ionUNC [facility] LENOIRSJMKP6913-70-12 12:51:00 Test Item Value Reference Range Interpretation Comments Sodium Lvl (test code = Sodium Lvl) 139 135-145 [facility] ResourcesSaperionUNC [facility]ALTH LENOIRHENPZ7668-61-62 12:51:00 Test Item Value Reference Range Interpretation Comments Potassium Lvl (test code = Potassium 4.4 3.5-5.1 Lvl) [facility] [id number] 12:51:00 Test Item Value Reference Range Interpretation Comments Chloride Lvl (test code = Chloride Lvl) 107 95-109 [facility] ResourcesSaperionUNC [facility]ALTH LENOIROEKUF9219-09-19 12:51:00 Test Item Value Reference Range Interpretation Comments CO2 (test code = CO2) 26 24-32 [facility]2022-12-15 12:51:00 Test Item Value Reference Range Interpretation Comments Calcium Lvl (test code = Calcium Lvl) 7.7 8.5-10.5 [facility]2022-12-15 12:51:00 Test Item Value Reference Range Interpretation Comments Total Protein (test code = Total 6.0 6.4-8.4 Protein) [facility] [id number] 12:51:00 Test Item Value Reference Range Interpretation Comments Albumin Lvl (test code = Albumin Lvl) 2.2 3.5-5.0 [facility]2022-12-15 12:51:00 Test Item Value Reference Range Interpretation Comments ALT (test code = ALT) 16 See_Comment [Auto mated message] The system which ge nerated this result transmit rosendo reference range : <=65. The reference range was not used to interpr et this result as josi l/abnormal. [facility] [employer] [id number] 12:51:00 Test Item Value Reference Range Interpretation Comments AST (test code = AST) 17 See_Comment [Auto mated message] The system which ge nerated this result transmit rosendo reference range : <=37. The reference range was not used to interpr et this result as josi l/abnormal. [facility] NLQQP2697-96-19 12:51:00 Test Item Value Reference Range Interpretation Comments Alk Phos (test code = Alk Phos) 104 39-136 [facility] INAKJ1626-69-77 12:51:00 Test Item Value Reference Range Interpretation Comments Bili Total (test code = Bili Total) 0.4 0.2-1.3 [facility] HQGNN5680-03-06 12:51:00 Test Item Value Reference Range Interpretation Comments AGAP (test code = AGAP) 10.4 10.0-20.0 [facility] [id number] 12:51:00 Test Item Value Reference Range Interpretation Comments B/C Ratio (test code = B/C Ratio) 35 1 6-25 [facility] [id number] 12:51:00 Test Item Value Reference Range Interpretation Comments Globulin (test code = Globulin) 3.8 2.7-4.2 [facility] KXPEM4301-53-93 12:51:00 Test Item Value Reference Range Interpretation Comments A/G Ratio (test code = A/G Ratio) 0.6 1 0.7-1.6 [facility] [id number] 12:51:00 Test Item Value Reference Range Interpretation Comments eGFR (test code = eGFR) 34 [facility] CPEZL0772-03-69 12:51:00 Test Item Value Reference Range Interpretation Comments LDH (test code = LDH) 152 98-192 [facility] ResourcesOdmadajDVNBDHLQW5009-40-50 12:51:00 Test Item Value Reference Range Interpretation Comments Ferritin Lvl (test code = Ferritin Lvl) 199 5-204 [facility] ResourcesXgeutswYMQCUXQWK2455-71-39 12:51:00 Test Item Value Reference Range Interpretation Comments Iron (test code = Iron) 82 45-160 [facility]JgdqphjZHWNVOSAU2380-36-77 12:51:00 Test Item Value Reference Range Interpretation Comments TIBC (test code = TIBC) 216 250-450 [facility] HospitalIaamxhkVRYOGBOXG5015-47-79 12:51:00 Test Item Value Reference Range Interpretation Comments % Satur Fe (test code = % Satur Fe) 38 16-45 [facility] HospitalUnigoxcJVSHBMZTA5007-98-88 12:51:00 Test Item Value Reference Range Interpretation Comments Folate Lvl (test code = Folate Lvl) 8.7 [facility] HospitalYgdywzmXDTFRTUJX1197-26-34 12:51:00 Test Item Value Reference Range Interpretation Comments Vitamin B12 Lvl (test code = Vitamin 551 057-3630 B12 Lvl) [facility] HospitalRvlaqakXXPYMGOUW9635-00-81 12:51:00 Test Item Value Reference Range Interpretation Comments LDH (test code = LDH) 152 98-192 [facility] CenterEbvwuiuHITLKVGBYA2179-14-33 12:51:00 Test Item Value Reference Range Interpretation Comments PT (test code = PT) 14.7 s 12.0-14.7 [facility] CenterZhiqautNINGAXIRVF9722-27-69 12:51:00 Test Item Value Reference Range Interpretation Comments INR (test code = INR) 1.16 1 0.85-1.17 [facility] CenterYsedjxrBZUNPXNKRG9914-18-53 12:51:00 Test Item Value Reference Range Interpretation Comments PTT (test code = PTT) 36.9 s 22.9-35.8 [facility] CenterLlssfhbDHTGTOCMPP1350-13-34 12:51:00 Test Item Value Reference Range Interpretation Comments Retic Perf (test code = Yes (10/25/22 6:51 AM) Retic Perf) [facility] CenterUpzimmpUUTJNJANCF9883-72-74 12:51:00 Test Item Value Reference Range Interpretation Comments Retic Auto (test code = Retic Auto) 0.9 0.5-1.5 [place] 519362-12-15 12:51:00 Test Item Value Reference Range Interpretation Comments PT (test code = PT) 14.7 s 12.0-14.7 [place] 519362-12-15 12:51:00 Test Item Value Reference Range Interpretation Comments INR (test code = INR) 1.16 1 0.85-1.17 [facility] CenterHqfukcwPUUMBHSENP0704-09-97 12:51:00 Test Item Value Reference Range Interpretation Comments PTT (test code = PTT) 36.9 s 22.9-35.8 [place] [address]-12-15 12:51:00 Test Item Value Reference Range Interpretation Comments Retic Perf (test code = Yes (10/25/22 6:51 AM) Retic Perf) [facility] CenterAjibbquZPEVYPBGQE3217-00-49 12:51:00 Test Item Value Reference Range Interpretation Comments Retic Auto (test code = Retic Auto) 0.9 0.5-1.5 [facility]KqltojyPAZNGDZWNQ2834-07-89 12:51:00 Test Item Value Reference Range Interpretation Comments Haptoglobin (test code = Haptoglobin) 152 16-200 [facility] WestWwmajwnFXJTQKIQPU1102-09-70 12:51:00 Test Item Value Reference Range Interpretation Comments Haptoglobin (test code = Haptoglobin) 152 16-200 [facility]2022-12-15 12:51:00 Test Item Value Reference Range Interpretation Comments Ferritin Lvl (test code = Ferritin Lvl) 199 5-204 [facility]2022-12-15 12:51:00 Test Item Value Reference Range Interpretation Comments Iron (test code = Iron) 82 [facility]2022-12-15 12:51:00 Test Item Value Reference Range Interpretation Comments TIBC (test code = TIBC) 216 [facility] [id number] 12:51:00 Test Item Value Reference Range Interpretation Comments % Satur Fe (test code = % Satur Fe) 38 [facility] [id number] 12:51:00 Test Item Value Reference Range Interpretation Comments Folate Lvl (test code = Folate Lvl) 8.7 [facility]2022-12-15 12:51:00 Test Item Value Reference Range Interpretation Comments Vitamin B12 Lvl (test code = Vitamin 392 B12 Lvl) [facility] [id number] 12:51:00 Test Item Value Reference Range Interpretation Comments ABO/Rh (test code = ABO/Rh) A NEG [facility] [id number] 12:51:00 Test Item Value Reference Range Interpretation Comments Antibody Scrn (test Positive 3(10/25/22 code = Antibody Scrn) 6:51 AM) [facility] [id number] 12:51:00 Test Item Value Reference Range Interpretation Comments AB Int (test code = AB Int) Anti-D [facility] WTXGXHY3710-64-99 12:51:00 Test Item Value Reference Range Interpretation Comments ABO/Rh (test code = ABO/Rh) A NEG [facility] [employer] [facility] [id number] 12:51:00 Test Item Value Reference Range Interpretation Comments Antibody Scrn (test Positive 6(10/25/22 code = Antibody Scrn) 6:51 AM) [facility] [employer] [facility] [id number] 12:51:00 Test Item Value Reference Range Interpretation Comments AB Int (test code = AB Int) Anti-D [facility] [employer] [id number] 12:51:00 Test Item Value Reference Range Interpretation Comments Glucose Lvl (test code = Glucose Lvl) 88 70-99 [facility] [employer] [id number] 12:51:00 Test Item Value Reference Range Interpretation Comments BUN (test code = BUN) 54 7-22 [facility] [employer] [id number] 12:51:00 Test Item Value Reference Range Interpretation Comments Creatinine Lvl (test code = Creatinine 1.53 0.50-1.40 Lvl) [facility] [employer] [id number] 12:51:00 Test Item Value Reference Range Interpretation Comments Sodium Lvl (test code = Sodium Lvl) 139 135-145 [facility] [employer] [id number] 12:51:00 Test Item Value Reference Range Interpretation Comments Potassium Lvl (test code = Potassium 4.4 3.5-5.1 Lvl) [facility] [employer] [id number] 12:51:00 Test Item Value Reference Range Interpretation Comments Chloride Lvl (test code = Chloride Lvl) 107 95-109 [facility] [employer] [id number] 12:51:00 Test Item Value Reference Range Interpretation Comments CO2 (test code = CO2) 26 24-32 [facility] [employer] [id number] 12:51:00 Test Item Value Reference Range Interpretation Comments Calcium Lvl (test code = Calcium Lvl) 7.7 8.5-10.5 [facility] [employer] [id number] 12:51:00 Test Item Value Reference Range Interpretation Comments Total Protein (test code = Total 6.0 6.4-8.4 Protein) [facility] [employer] [id number] 12:51:00 Test Item Value Reference Range Interpretation Comments Albumin Lvl (test code = Albumin Lvl) 2.2 3.5-5.0 [facility]2022-12-15 12:51:00 Test Item Value Reference Range Interpretation Comments ALT (test code = ALT) 16 See_Comment [Auto mated message] The system which ge nerated this result transmit rosendo reference range : <=65. The reference range was not used to interpr et this result as josi l/abnormal. [facility]2022-12-15 12:51:00 Test Item Value Reference Range Interpretation Comments AST (test code = AST) 17 See_Comment [Auto mated message] The system which ge nerated this result transmit rosendo reference range : <=37. The reference range was not used to interpr et this result as josi l/abnormal. [facility]2022-12-15 12:51:00 Test Item Value Reference Range Interpretation Comments Alk Phos (test code = Alk Phos) 104 39-136 [facility]2022-12-15 12:51:00 Test Item Value Reference Range Interpretation Comments Bili Total (test code = Bili Total) 0.4 0.2-1.3 [facility] [employer] [id number] 12:51:00 Test Item Value Reference Range Interpretation Comments AGAP (test code = AGAP) 10.4 10.0-20.0 [facility]2022-12-15 12:51:00 Test Item Value Reference Range Interpretation Comments B/C Ratio (test code = B/C Ratio) 35 1 6-25 [facility] [employer] [id number] 12:51:00 Test Item Value Reference Range Interpretation Comments Globulin (test code = Globulin) 3.8 2.7-4.2 [facility] [employer]2022-12-15 12:51:00 Test Item Value Reference Range Interpretation Comments A/G Ratio (test code = A/G Ratio) 0.6 1 0.7-1.6 [facility] 51[employer]2022-12-15 12:51:00 Test Item Value Reference Range Interpretation Comments eGFR (test code = eGFR) 34 [facility] [employer] [id number] 12:51:00 Test Item Value Reference Range Interpretation Comments LDH (test code = LDH) 152 98-192 [facility] JlkaoluIBWDBZZTU9157-49-69 12:51:00 Test Item Value Reference Range Interpretation Comments Ferritin Lvl (test code = Ferritin Lvl) 199 5-204 [facility] HospitalIspzvxsDJISNJERG4486-00-26 12:51:00 Test Item Value Reference Range Interpretation Comments Iron (test code = Iron) 82 45-160 [facility] HospitalIvgpelsPBQFZORQR1970-82-16 12:51:00 Test Item Value Reference Range Interpretation Comments TIBC (test code = TIBC) 216 250-450 [facility] HospitalObvjqhoNMTCNIZAX6035-17-13 12:51:00 Test Item Value Reference Range Interpretation Comments % Satur Fe (test code = % Satur Fe) 38 16-45 [facility] HospitalYlnjfbaSOUEVRHMQ7775-33-60 12:51:00 Test Item Value Reference Range Interpretation Comments Folate Lvl (test code = Folate Lvl) 8.7 [facility] HospitalWsfdjkyMKOILRUAB7766-18-23 12:51:00 Test Item Value Reference Range Interpretation Comments Vitamin B12 Lvl (test code = Vitamin 431 332-3428 B12 Lvl) [facility] HospitalGhaeeowQVBBMNWYM9362-04-86 12:51:00 Test Item Value Reference Range Interpretation Comments LDH (test code = LDH) 152 98-192 [facility] CenterGbxpobuXQCHNCVXGQ6442-91-32 12:51:00 Test Item Value Reference Range Interpretation Comments PT (test code = PT) 14.7 s 12.0-14.7 [facility] CenterMycyqxmIXSLANBABN4763-13-13 12:51:00 Test Item Value Reference Range Interpretation Comments INR (test code = INR) 1.16 1 0.85-1.17 [facility] CenterHqartbeBFZAODDGEG8074-70-09 12:51:00 Test Item Value Reference Range Interpretation Comments PTT (test code = PTT) 36.9 s 22.9-35.8 [place] 519362-12-15 12:51:00 Test Item Value Reference Range Interpretation Comments Retic Perf (test code = Yes (10/25/22 6:51 AM) Retic Perf) [facility] CenterSxbebqnXQLJJNVAAX1053-92-20 12:51:00 Test Item Value Reference Range Interpretation Comments Retic Auto (test code = Retic Auto) 0.9 0.5-1.5 [place] 519362-12-15 12:51:00 Test Item Value Reference Range Interpretation Comments PT (test code = PT) 14.7 s 12.0-14.7 [place] [address]-12-15 12:51:00 Test Item Value Reference Range Interpretation Comments INR (test code = INR) 1.16 1 0.85-1.17 [facility] CenterCaebeumQLGCCGWMZL6056-21-81 12:51:00 Test Item Value Reference Range Interpretation Comments PTT (test code = PTT) 36.9 s 22.9-35.8 [facility] CenterHzutmmxPSIYDIPCQC9131-83-07 12:51:00 Test Item Value Reference Range Interpretation Comments Retic Perf (test code = Yes (10/25/22 6:51 AM) Retic Perf) [facility] CenterZalsswkQSWMQVQYLQ9544-45-39 12:51:00 Test Item Value Reference Range Interpretation Comments Retic Auto (test code = Retic Auto) 0.9 0.5-1.5 [facility] CenterRmvjtheYBPTAEZAJV0578-77-42 12:51:00 Test Item Value Reference Range Interpretation Comments Haptoglobin (test code = Haptoglobin) 152 16-200 [facility] HospitalJycdsaeECVBRLXXAL1079-54-11 12:51:00 Test Item Value Reference Range Interpretation Comments Haptoglobin (test code = Haptoglobin) 152 16-200 [facility] HospitalCYCLIC CITRULLINATED DRXUMNS9990-22-39 04:25:02 Test Item Value Reference Range Interpretation Comments CCP IgG (test code = 4.0 U 0.0-20.0 [id number]) MARISSA (test code = MARISSA) INTERPRETATION: UNITS: Negative <20Weak Positive 20-39Moderate Positive 40-59Strong Positive >=60 A positive result indicates the presence of CCP IgG antibodies and suggests the possibility of RA antibodies and suggests the possibility of SLE. A negative result indicates no CCP IgG antibodies or levels below the cut-off ofthe assay. Lab Interpretation (test Normal code = 43581-5) [facility] METABOLIC PANEL (NA, K, CL, CO2, GLUCOSE, BUN, CREATININE, CA)2022-10-17 12:30:45 Test Item Value Reference Range Interpretation Comments NA (test code = 133 mmol/L 135-145 L [id number]) K (test code = 5.6 mmol/L 3.5-5.0 H Slight 1828068586) hemolysis CL (test code = 103 mmol/L 98-108 6423056890) CO2 TOTAL (test code 25 mmol/L 23-31 = 1433296273) AGAP (test code = 2-16 2677682600) BUN (test code = 23 mg/dL 7-23 Slight 2587926255) hemolysis GLUCOSE (test code = 80 mg/dL 70-110 5269509676) CREATININE (test code 1.00 mg/dL 0.50-1.04 = 3963776574) CALCIUM (test code = 8.2 mg/dL 8.6-10.6 L 3616042915) eGFR (test code = mL/min/1.73m2 7699220751) MARISSA (test code = MARISSA) Association of Glomerular Filtration Rate (GFR) and Staging of Kidney Disease* + -----+ --------+ +| GFR (mL/min/1.73 m2) ?| With Kidney Damage ?| ?Without Kidney Damage+ +------- +---- --+| ?>90 ?| ?Stage one ?| ? Normal ?+ ------+ ---------+--------- +| ?60-89 ?| ?Stage two ?| ? Decreased GFR ? + -----+ --------+ +| ?30-59 ?| ?Stage three ?| ? Stage three ? + -----+ --------+ +| ?15-29 ?| ?Stage four ? | ? Stage four ?+ ------+ ---------+--------- +| ?<15 (or dialysis) ? ?| ?Stage five ? | ? Stage five ?+ ------+ ---------+--------- + *Each stage assumes the associated GFR level has been in effect for at least three months. ?Stages 1 to 5, with or without kidney disease, indicate chronic kidney disease. Notes: Determination of stages one and two (with eGFR >59mL/min/1.73 m2) requires estimation of kidney damage for at least three months as defined by structural or functional abnormalities of the kidney, manifested by either:Pathological abnormalities or Markers of kidney damage (including abnormalities in the composition of the blood or urine or abnormalities in imaging tests). Lab Interpretation Abnormal (test code = 65408-0) [facility]45 Test Item Value Reference Range Interpretation Comments MAGNESIUM (test code = 2826952771) 2.0 mg/dL 1.7-2.4 Lab Interpretation (test code = Normal 66360-0) [facility] WITH [id number] 11:09:05 Test Item Value Reference Range Interpretation Comments WBC (test code = See_Comment [Automated 6690-2) message] The sy stem which generated this result transmitted reference range : 4.30 - 11.10 10*3/?L. The reference range was not used to interpret this result as normal/abnormal . RBC (test code = See_Comment L [Automated 789-8) message] The sy stem which generated this result transmitted reference range : 3.93 - 5.25 10*6/?L. The reference range was not used to interpret this result as normal/abnormal . HGB (test code = 11.3 g/dL 11.6-15.0 L 718-7) HCT (test code = 32.6 % 35.7-45.2 L 4544-3) MCV (test code = 95.0 fL 80.6-95.5 787-2) MCH (test code = 32.9 pg 25.9-32.8 H 785-6) MCHC (test code = 34.7 g/dL 31.6-35.1 786-4) RDW-SD (test code = 58.2 fL 39.0-49.9 H 59937-8) RDW-CV (test code = 16.7 % 12.0-15.5 H 788-0) PLT (test code = See_Comment [Automated 777-3) message] The sy stem which generated this result transmitted reference range : 166 - 358 10*3/ ?L. The reference r patria was not used to interpret this result as normal/abnormal . MPV (test code = 10.3 fL 9.5-12.9 90221-9) NRBC/100 WBC (test See_Comment [Automat ed code = 9400845380) message] The system which generated this result transmitted reference range : 0.0 - 10.0 /100 WBCs. The refer ence range was not u sed to interpret th is result as normal/abnormal . NRBC x10^3 (test code See_Comment [Auto mated = 1164217639) message] The s ystem which generated this result transmitted reference range : 10*3/?L. The reference range was not used to interpret this result as normal/abnormal . GRAN MAT (NEUT) % 47.0 % (test code = 770-8) IMM GRAN % (test code 0.90 % = 8210432511) LYMPH % (test code = 34.3 % 736-9) MONO % (test code = 12.3 % 5905-5) EOS % (test code = 4.6 % 713-8) BASO % (test code = 0.9 % 706-2) GRAN MAT x10^3(ANC) 2.63 10*3/uL 1.88-7.09 (test code = 8588615885) IMM GRAN x10^3 (test 0.05 10*3/uL 0.00-0.06 code = 1991362534) LYMPH x10^3 (test code 1.92 10*3/uL 1.32-3.29 = 731-0) MONO x10^3 (test code 0.69 10*3/uL 0.33-0.92 = 742-7) EOS x10^3 (test code = 0.26 10*3/uL 0.03-0.39 711-2) BASO x10^3 (test code 0.05 10*3/uL 0.01-0.07 = 704-7) REACT LYMPHS (test Rare code = 4089988452) Lab Interpretation Abnormal (test code = 81000-1) [facility] METABOLIC PANEL (NA, K, CL, CO2, GLUCOSE, BUN, CREATININE, CA)2022-10-13 07:39:58 Test Item Value Reference Range Interpretation Comments NA (test code = 137 mmol/L 135-145 6681332434) K (test code = 3.8 mmol/L 3.5-5.0 Slight 0866987977) hemolysis CL (test code = 108 mmol/L 98-108 2478894177) CO2 TOTAL (test code 25 mmol/L 23-31 = 1336318898) AGAP (test code = 2-16 9565006349) BUN (test code = 22 mg/dL 7-23 Slight 0119884591) hemolysis GLUCOSE (test code = 96 mg/dL 70-110 1012085732) CREATININE (test code 0.70 mg/dL 0.50-1.04 = 4824321851) CALCIUM (test code = 8.1 mg/dL 8.6-10.6 L 7875754958) eGFR (test code = mL/min/1.73m2 5742736825) MARISSA (test code = MARISSA) Association of Glomerular Filtration Rate (GFR) and Staging of Kidney Disease* + -----+ --------+ +| GFR (mL/min/1.73 m2) ?| With Kidney Damage ?| ?Without Kidney Damage+ +------- +---- --+| ?>90 ?| ?Stage one ?| ? Normal ?+ ------+ ---------+--------- +| ?60-89 ?| ?Stage two ?| ? Decreased GFR ? + -----+ --------+ +| ?30-59 ?| ?Stage three ?| ? Stage three ? + -----+ --------+ +| ?15-29 ?| ?Stage four ? | ? Stage four ?+ ------+ ---------+--------- +| ?<15 (or dialysis) ? ?| ?Stage five ? | ? Stage five ?+ ------+ ---------+--------- + *Each stage assumes the associated GFR level has been in effect for at least three months. ?Stages 1 to 5, with or without kidney disease, indicate chronic kidney disease. Notes: Determination of stages one and two (with eGFR >59mL/min/1.73 m2) requires estimation of kidney damage for at least three months as defined by structural or functional abnormalities of the kidney, manifested by either:Pathological abnormalities or Markers of kidney damage (including abnormalities in the composition of the blood or urine or abnormalities in imaging tests). Lab Interpretation Abnormal (test code = 69648-0) [facility] WITH [id number] 07:11:11 Test Item Value Reference Range Interpretation Comments WBC (test code = See_Comment [Automated 4290-2) message] The sy stem which generated this result transmitted reference range : 4.30 - 11.10 10*3/?L. The reference range was not used to interpret this result as normal/abnormal . RBC (test code = See_Comment L [Automated 659-8) message] The sy stem which generated this result transmitted reference range : 3.93 - 5.25 10*6/?L. The reference range was not used to interpret this result as normal/abnormal . HGB (test code = 11.0 g/dL 11.6-15.0 L 718-7) HCT (test code = 32.9 % 35.7-45.2 L 4544-3) MCV (test code = 96.5 fL 80.6-95.5 H 787-2) MCH (test code = 32.3 pg 25.9-32.8 785-6) MCHC (test code = 33.4 g/dL 31.6-35.1 786-4) RDW-SD (test code = 61.1 fL 39.0-49.9 H 32718-4) RDW-CV (test code = 17.2 % 12.0-15.5 H 788-0) PLT (test code = See_Comment [Automated 777-3) message] The sy stem which generated this result transmitted reference range : 166 - 358 10*3/ ?L. The reference r patria was not used to interpret this result as normal/abnormal . MPV (test code = 9.2 fL 9.5-12.9 L 98941-3) NRBC/100 WBC (test See_Comment [Automat ed code = 3219425851) message] The system which generated this result transmitted reference range : 0.0 - 10.0 /100 WBCs. The refer ence range was not u sed to interpret th is result as normal/abnormal . NRBC x10^3 (test code See_Comment [Auto mated = 7265777442) message] The s ystem which generated this result transmitted reference range : 10*3/?L. The reference range was not used to interpret this result as normal/abnormal . GRAN MAT (NEUT) % 60.8 % (test code = 770-8) IMM GRAN % (test code 0.20 % = 8422942852) LYMPH % (test code = 19.3 % 736-9) MONO % (test code = 14.8 % 5905-5) EOS % (test code = 4.1 % 713-8) BASO % (test code = 0.8 % 706-2) GRAN MAT x10^3(ANC) 3.08 10*3/uL 1.88-7.09 (test code = 0253352543) IMM GRAN x10^3 (test 0.00-0.06 code = 7621615329) LYMPH x10^3 (test code 0.98 10*3/uL 1.32-3.29 L = 731-0) MONO x10^3 (test code 0.75 10*3/uL 0.33-0.92 = 742-7) EOS x10^3 (test code = 0.21 10*3/uL 0.03-0.39 711-2) BASO x10^3 (test code 0.04 10*3/uL 0.01-0.07 = 704-7) Lab Interpretation Abnormal (test code = 28757-0) [facility] [id number] 17:05:00 Test Item Value Reference Range Interpretation Comments RF (test code = See_Comment H [Automated message] 4120042271) The system [employer] generated this result transmitted ref erence range: <20 IU/m L. The reference range was not used to int erpret this result as normal/abnormal . Lab Interpretation (test Abnormal code = 59350-9) [facility]ACTIVE [id number] 16:16:15 Test Item Value Reference Range Interpretation Comments CRP (test code = 29.6 mg/dL See_Comment H [Automated message] 1663820736) The system [employer] generated this result transmit rosendo reference range : <=0.8. The refe rence range was not u sed to interpret th is result as normal/abnormal . Lab Interpretation Abnormal (test code = 84648-2) [facility] HospitalSEDIMENTATION [id number] 15:14:43 Test Item Value Reference Range Interpretation Comments ESR (test code = See_Comment H [Automated message] 00871-7) The system [employer] generated this result transmitted ref erence range: 2 - 30 m m/HR. The reference r patria was not used to interpret this result as normal/abnor mal. Lab Interpretation (test Abnormal code = 50241-8) [facility] HospitalVancomycin Random [id number] 11:20:52 Test Item Value Reference Range Interpretation Comments VANCO RANDOM (test code = 8.9 ug/mL 2876220196) [facility] (NA, K, CL, CO2, GLUCOSE, BUN, CREATININE, CA)2022-10-11 11:15:33 Test Item Value Reference Range Interpretation Comments NA (test code = 138 mmol/L 135-145 3458607152) K (test code = 4.4 mmol/L 3.5-5.0 7118550712) CL (test code = 110 mmol/L 98-108 H 2406002732) CO2 TOTAL (test code = 21 mmol/L 23-31 L 2307050055) AGAP (test code = 2-16 2471998582) BUN (test code = 30 mg/dL 7-23 H 7324691868) GLUCOSE (test code = 94 mg/dL 70-110 7739665071) CREATININE (test code = 0.92 mg/dL 0.50-1.04 0105998496) CALCIUM (test code = 9.3 mg/dL 8.6-10.6 1858420243) eGFR (test code = mL/min/1.73m2 7512810719) MARISSA (test code = MARISSA) Association of Glomerular Filtration Rate (GFR) and Staging of Kidney Disease* + --+ --+ ------+| GFR (mL/min/1.73 m2) ?| With Kidney Damage ?| ?Without Kidney Damage+ --------+ --------+ +| ?>90 ?| ?Stage one ?| ? Normal ?+ ---+ ---+ -------+| ?60-89 ?| ?Stage two ?| ? Decreased GFR ? + --+ --+ ------+| ?30-59 ?| ?Stage three ?| ? Stage three ? + --+ --+ ------+| ?15-29 ?| ?Stage four ? | ? Stage four ?+ ---+ ---+ -------+| ?<15 (or dialysis) ? ?| ?Stage five ? | ? Stage five ?+ ---+ ---+ -------+ *Each stage assumes the associated GFR level has been in effect for at least three months. ?Stages 1 to 5, with or without kidney disease, indicate chronic kidney disease. Notes: Determination of stages one and two (with eGFR >59mL/min/1.73 m2) requires estimation of kidney damage for at least three months as defined by structural or functional abnormalities of the kidney, manifested by either:Pathological abnormalities or Markers of kidney damage (including abnormalities in the composition of the blood or urine or abnormalities in imaging tests). Lab Interpretation Abnormal (test code = 31132-2) [facility] 11:15:33 Test Item Value Reference Range Interpretation Comments MAGNESIUM (test code = 6584215344) 2.1 mg/dL 1.7-2.4 Lab Interpretation (test code = Normal 10962-8) [facility]for use with [facility] Infusion)2022-10-11 10:09:34 Test Item Value Reference Range Interpretation Comments APTT Patient (test code See_Comment H [Au tomated message] = 2193-2) The system [employer] generated this result transmitted ref erence range: 26 - 36 Seconds. The reference range was not used to int erpret this result as normal/abnormal . Lab Interpretation (test Abnormal code = 72017-2) [facility] WITH [id number] 09:22:01 Test Item Value Reference Range Interpretation Comments WBC (test code = See_Comment [Automated 6690-2) message] The sy stem which generated this result transmitted reference range : 4.30 - 11.10 10*3/?L. The reference range was not used to interpret this result as normal/abnormal . RBC (test code = See_Comment L [Automated 789-8) message] The sy stem which generated this result transmitted reference range : 3.93 - 5.25 10*6/?L. The reference range was not used to interpret this result as normal/abnormal . HGB (test code = 10.7 g/dL 11.6-15.0 L 718-7) HCT (test code = 33.1 % 35.7-45.2 L 4544-3) MCV (test code = 100.9 fL 80.6-95.5 H 787-2) MCH (test code = 32.6 pg 25.9-32.8 785-6) MCHC (test code = 32.3 g/dL 31.6-35.1 786-4) RDW-SD (test code = 63.8 fL 39.0-49.9 H 95703-2) RDW-CV (test code = 17.1 % 12.0-15.5 H 788-0) PLT (test code = See_Comment [Automated 777-3) message] The sy stem which generated this result transmitted reference range : 166 - 358 10*3/ ?L. The reference r patria was not used to interpret this result as normal/abnormal . MPV (test code = 9.5 fL 9.5-12.9 20642-5) NRBC/100 WBC (test See_Comment [Automat ed code = 1437553243) message] The system which generated this result transmitted reference range : 0.0 - 10.0 /100 WBCs. The refer ence range was not u sed to interpret th is result as normal/abnormal . NRBC x10^3 (test code See_Comment [Auto mated = 4551343001) message] The s ystem which generated this result transmitted reference range : 10*3/?L. The reference range was not used to interpret this result as normal/abnormal . GRAN MAT (NEUT) % 67.8 % (test code = 770-8) IMM GRAN % (test code 0.30 % = 6989146483) LYMPH % (test code = 12.9 % 736-9) MONO % (test code = 13.9 % 5905-5) EOS % (test code = 4.2 % 713-8) BASO % (test code = 0.9 % 706-2) GRAN MAT x10^3(ANC) 3.89 10*3/uL 1.88-7.09 (test code = 3512929641) IMM GRAN x10^3 (test 0.00-0.06 code = 1285744811) LYMPH x10^3 (test code 0.74 10*3/uL 1.32-3.29 L = 731-0) MONO x10^3 (test code 0.80 10*3/uL 0.33-0.92 = 742-7) EOS x10^3 (test code = 0.24 10*3/uL 0.03-0.39 711-2) BASO x10^3 (test code 0.05 10*3/uL 0.01-0.07 = 704-7) Lab Interpretation Abnormal (test code = 03850-5) [facility] ([facility]2022-10-11 04:33:07 Test Item Value Reference Range Interpretation Comments Height (test code = in 0620041909) Weight (test code = lbs 1484710795) Systolic BP (test code mmHg = 5327512812) Diastolic BP (test code mmHg = 6646305403) Heart Rate (test code = bpm 4024152756) LVOT stroke volume 45.30 cm3 (test code = 5958132141) EF(Teich) (test code = 62.30 % 5514815293) LVIDD (test code = 4.90 cm 9374456119) LVIDS (test code = 3.30 cm 5606801032) Left Ventricular End 43.1 mL Systolic Volume by Teichholz Method (test code = 7160438) Left Ventricular End 114.2 mL Diastolic Volume by Teichholz Method (test code = 8067685) IVS (test code = 0.88 cm 6654702515) LVPWD (test code = 1.05 cm 1945110093) LVOT diameter (test 1.8 cm code = 9257899088) LVOT area (test code = 2.80 cm2 7180167770) FS (test code = 34 % 5380659136) MV Peak E Yaquelin (test 65.6 cm/s code = 1448371602) MV Peak A Yaquelin (test 96.0 cm/s code = 1002905303) E/A ratio (test code = ratio 7050647158) E wave decelartion time 0.17 s (test code = 6120210859) LA Volume Index (BP) 45.2 mL/m2 (test code = 4759683221) LA volume (BP) (test 76.0 mL code = 7530917289) LVOT peak yaquelin (test 82.3 cm/s code = 6824812559) LVOT mn grad (test code mmHg = 8999393571) BSA (test code = 1.68 m2 0161777771) LA size (test code = 4.4 cm 0935289803) LAV(MOD-sp2) (test code 75.60 mL = 3044239406) LAV(MOD-sp4) (test code 73.10 mL = 1854497918) TASV (test code = 12.6 cm/s 3131985082) Tapse (test code = 1.34 cm 9758996823) AV regurgitation 421.2 ms pressure 1/2 time (test code = 7416612820) AV vena contracta (test 0.40 cm code = 0601724881) Aortic valve mean 150.9 cm/s velocity (test code = 6126956928) Ao peak yaquelin (test code 224.0 cm/s = 7957170324) Ao VTI (test code = 39.9 cm 0838811897) AV LVOT peak gradient mmHg (test code = 0593181501) LVOT peak VTI (test 16.0 cm code = 4416477849) AV area by cont VTI 1.1 cm2 (test code = 3666598252) AV area peak yaquelin (test 1.0 cm2 code = 0244878099) AI dec slope (test code 240.70 cm/s2 = 9455695568) AI max yaquelin (test code = 346.10 cm/s 1519885793) LV V1 mean (test code = 58.20 cm/s 2307956866) Ao max PG (test code = 20.10 mm[Hg] 5533900283) AI max PG (test code = 47.90 mm[Hg] 4249305397) TR Peak Yaquelin (test code 249.8 cm/s = 5718480925) Triscuspid Valve mmHg Regurgitation Peak Gradient (test code = 9105123496) Ao root diam (test code 3.10 cm = 8236855255) AV peak gradient (test mmHg code = 3604093825) AV valve area (test 1.14 cm2 code = 8196447348) AV mean gradient (test mmHg code = 1537218992) Aortic root (test code 3.1 cm = 8082810984) Ao root annulus (test 3.1 cm code = 8699722647) PW (test code = 1.05 cm 0.6-1.9 0113868527) EF - 2D (test code = 62.30 % 01592417) Interventricular Septum 0.88 cm Diastolic Thickness by 2D (test code = 5225194) MR max PG (test code = 37.30 mm[Hg] 3259608869) MR max yaquelin (test code = 305.40 cm/s 6215172362) Mr max yaquelin (test code = 305.4 m/s 8403614850) Radiology Study observation (narrative) (test code = 63706-8) MARISSA (test code = MARISSA) ?Aortic?Valve: Moderately calcified cusps. Mild transvalvular regurgitation. There is moderate aortic stenosis with calculated BALBIR 1 cm2 and AVAi 0.6 m2/m2. 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 ?Left?Ventricle: Left ventricle size is normal. Normal wall thickness. Normal wall motion. Normal systolic function with a visually estimated EF of 55 - 60%. ?Right?Ventricle: Right ventricle size is normal. Normal systolic function. 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 ?Tricuspid?Valve: Tricuspid valve structure is normal. Mild to moderate transvalvular regurgitation. Right ventricular systolic pressure is 25-30 mmHg. No stenosis. ?Left?Atrium: Left atrium is moderately dilated. Left VentricleLeft ventricle size is normal. Normal wall thickness. Normal wall motion. Normal systolic function with a visually estimated EF of 55 - 60%. 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 Normal systolic function. 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 Mild mitral annular calcification. Mild transvalvular regurgitation.Tricuspi d ValveTricuspid valve structure is normal. Mild to moderate transvalvular regurgitation. Right ventricular systolic pressure is 25-30 mmHg. No stenosis.Aortic ValveModerately calcified cusps. Mild transvalvular regurgitation. There is moderate aortic stenosis with calculated BALBIR 1 cm2 and AVAi 0.6 m2/m2. 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 Pulmonic valve is normal in structure and function.Ascending AortaNormal sized aortic root.PericardiumThe pericardium is normal. No pericardial effusion.Study DetailsA complete echocardiogram was performed using 2D, color flow Doppler and spectral Doppler. 5 mL of Lumason ultrasound enhancing agent used. [facility] HospitalCHEM [id number] 09:25:00 Test Item Value Reference Range Interpretation Comments Glucose Lvl (test code = Glucose Lvl) 89 70-99 [place] 542562-09-19 09:25:00 Test Item Value Reference Range Interpretation Comments BUN (test code = BUN) 42 7-22 [place] 542562-09-19 09:25:00 Test Item Value Reference Range Interpretation Comments Creatinine Lvl (test code = Creatinine 1.32 0.50-1.40 Lvl) [place] [address]-09-19 09:25:00 Test Item Value Reference Range Interpretation Comments Sodium Lvl (test code = Sodium Lvl) 135 135-145 [place] [address]-09-19 09:25:00 Test Item Value Reference Range Interpretation Comments Potassium Lvl (test code = Potassium 4.8 3.5-5.1 Lvl) [place] [address]-09-19 09:25:00 Test Item Value Reference Range Interpretation Comments Chloride Lvl (test code = Chloride Lvl) 101 95-109 [place] 542562-09-19 09:25:00 Test Item Value Reference Range Interpretation Comments CO2 (test code = CO2) 25 24-32 [place] [address]-09-19 09:25:00 Test Item Value Reference Range Interpretation Comments Calcium Lvl (test code = Calcium Lvl) 8.3 8.5-10.5 [place] 542562-09-19 09:25:00 Test Item Value Reference Range Interpretation Comments AGAP (test code = AGAP) 13.8 10.0-20.0 [place] 542562-09-19 09:25:00 Test Item Value Reference Range Interpretation Comments eGFR (test code = eGFR) 40 [place] 519362-09-19 09:25:00 Test Item Value Reference Range Interpretation Comments WBC (test code = WBC) 5.6 3.7-10.4 [place] [address]-09-19 09:25:00 Test Item Value Reference Range Interpretation Comments RBC (test code = RBC) 2.64 4.20-5.40 [place] 64[address]-09-19 09:25:00 Test Item Value Reference Range Interpretation Comments Hgb (test code = Hgb) 9.2 12.0-16.0 [place] [address]-09-19 09:25:00 Test Item Value Reference Range Interpretation Comments Hct (test code = Hct) 27.3 36.0-48.0 [place] [address]-09-19 09:25:00 Test Item Value Reference Range Interpretation Comments MCV (test code = MCV) 103.5 80.0-98.0 [place] [address]-09-19 09:25:00 Test Item Value Reference Range Interpretation Comments MCH (test code = MCH) 34.8 pg 27.0-31.0 [place] [address]-09-19 09:25:00 Test Item Value Reference Range Interpretation Comments MCHC (test code = MCHC) 33.6 32.0-36.0 [place] [address]-09-19 09:25:00 Test Item Value Reference Range Interpretation Comments RDW (test code = RDW) 14.2 11.5-14.5 [place] [address]-09-19 09:25:00 Test Item Value Reference Range Interpretation Comments Platelet (test code = Platelet) 208 133-450 [place] [address]-09-19 09:25:00 Test Item Value Reference Range Interpretation Comments MPV (test code = MPV) 7.7 7.4-10.4 [place] 542562-09-19 09:25:00 Test Item Value Reference Range Interpretation Comments Glucose Lvl (test code = Glucose Lvl) 89 70-99 [place] 542562-09-19 09:25:00 Test Item Value Reference Range Interpretation Comments BUN (test code = BUN) 42 7-22 [place] 542562-09-19 09:25:00 Test Item Value Reference Range Interpretation Comments Creatinine Lvl (test code = Creatinine 1.32 0.50-1.40 Lvl) [place] 542562-09-19 09:25:00 Test Item Value Reference Range Interpretation Comments Sodium Lvl (test code = Sodium Lvl) 135 135-145 [place] 542562-09-19 09:25:00 Test Item Value Reference Range Interpretation Comments Potassium Lvl (test code = Potassium 4.8 3.5-5.1 Lvl) [place] 542562-09-19 09:25:00 Test Item Value Reference Range Interpretation Comments Chloride Lvl (test code = Chloride Lvl) 101 95-109 [place] 542562-09-19 09:25:00 Test Item Value Reference Range Interpretation Comments CO2 (test code = CO2) 25 24-32 [place] 542562-09-19 09:25:00 Test Item Value Reference Range Interpretation Comments Calcium Lvl (test code = Calcium Lvl) 8.3 8.5-10.5 [place] 542562-09-19 09:25:00 Test Item Value Reference Range Interpretation Comments AGAP (test code = AGAP) 13.8 10.0-20.0 [place] 542562-09-19 09:25:00 Test Item Value Reference Range Interpretation Comments eGFR (test code = eGFR) 40 [place] 519362-09-19 09:25:00 Test Item Value Reference Range Interpretation Comments WBC (test code = WBC) 5.6 3.7-10.4 [place] 519362-09-19 09:25:00 Test Item Value Reference Range Interpretation Comments RBC (test code = RBC) 2.64 4.20-5.40 [place] 519362-09-19 09:25:00 Test Item Value Reference Range Interpretation Comments Hgb (test code = Hgb) 9.2 12.0-16.0 [place] 519362-09-19 09:25:00 Test Item Value Reference Range Interpretation Comments Hct (test code = Hct) 27.3 36.0-48.0 [place] 519362-09-19 09:25:00 Test Item Value Reference Range Interpretation Comments MCV (test code = MCV) 103.5 80.0-98.0 [place] 519362-09-19 09:25:00 Test Item Value Reference Range Interpretation Comments MCH (test code = MCH) 34.8 pg 27.0-31.0 [place] [address]-09-19 09:25:00 Test Item Value Reference Range Interpretation Comments MCHC (test code = MCHC) 33.6 32.0-36.0 [place] [address]-09-19 09:25:00 Test Item Value Reference Range Interpretation Comments RDW (test code = RDW) 14.2 11.5-14.5 [place] 519362-09-19 09:25:00 Test Item Value Reference Range Interpretation Comments Platelet (test code = Platelet) 208 133-450 [place] 519362-09-19 09:25:00 Test Item Value Reference Range Interpretation Comments MPV (test code = MPV) 7.7 7.4-10.4 [place] [address]-09-19 09:25:00 Test Item Value Reference Range Interpretation Comments Glucose Lvl (test code = Glucose Lvl) 89 70-99 [place] [address]-09-19 09:25:00 Test Item Value Reference Range Interpretation Comments BUN (test code = BUN) 42 7-22 [place] [address]-09-19 09:25:00 Test Item Value Reference Range Interpretation Comments Creatinine Lvl (test code = Creatinine 1.32 0.50-1.40 Lvl) [place] 542562-09-19 09:25:00 Test Item Value Reference Range Interpretation Comments Sodium Lvl (test code = Sodium Lvl) 135 135-145 [place] 542562-09-19 09:25:00 Test Item Value Reference Range Interpretation Comments Potassium Lvl (test code = Potassium 4.8 3.5-5.1 Lvl) [place] 542562-09-19 09:25:00 Test Item Value Reference Range Interpretation Comments Chloride Lvl (test code = Chloride Lvl) 101 95-109 [place] 542562-09-19 09:25:00 Test Item Value Reference Range Interpretation Comments CO2 (test code = CO2) 25 24-32 [place] 542562-09-19 09:25:00 Test Item Value Reference Range Interpretation Comments Calcium Lvl (test code = Calcium Lvl) 8.3 8.5-10.5 [place] [address]-09-19 09:25:00 Test Item Value Reference Range Interpretation Comments AGAP (test code = AGAP) 13.8 10.0-20.0 [place] 542562-09-19 09:25:00 Test Item Value Reference Range Interpretation Comments eGFR (test code = eGFR) 40 [place] 519362-09-19 09:25:00 Test Item Value Reference Range Interpretation Comments WBC (test code = WBC) 5.6 3.7-10.4 [place] 519362-09-19 09:25:00 Test Item Value Reference Range Interpretation Comments RBC (test code = RBC) 2.64 4.20-5.40 [place] 519362-09-19 09:25:00 Test Item Value Reference Range Interpretation Comments Hgb (test code = Hgb) 9.2 12.0-16.0 [place] [address]-09-19 09:25:00 Test Item Value Reference Range Interpretation Comments Hct (test code = Hct) 27.3 36.0-48.0 [place] 519362-09-19 09:25:00 Test Item Value Reference Range Interpretation Comments MCV (test code = MCV) 103.5 80.0-98.0 [place] 519362-09-19 09:25:00 Test Item Value Reference Range Interpretation Comments MCH (test code = MCH) 34.8 pg 27.0-31.0 [place] 519362-09-19 09:25:00 Test Item Value Reference Range Interpretation Comments MCHC (test code = MCHC) 33.6 32.0-36.0 [place] 519362-09-19 09:25:00 Test Item Value Reference Range Interpretation Comments RDW (test code = RDW) 14.2 11.5-14.5 [place] 519362-09-19 09:25:00 Test Item Value Reference Range Interpretation Comments Platelet (test code = Platelet) 208 133-450 [place] 519362-09-19 09:25:00 Test Item Value Reference Range Interpretation Comments MPV (test code = MPV) 7.7 7.4-10.4 [facility]2022-09-19 09:25:00 Test Item Value Reference Range Interpretation Comments Glucose Lvl (test code = Glucose Lvl) 89 70-99 [facility]2022-09-19 09:25:00 Test Item Value Reference Range Interpretation Comments BUN (test code = BUN) 42 7-22 [place] 542562-09-19 09:25:00 Test Item Value Reference Range Interpretation Comments Creatinine Lvl (test code = Creatinine 1.32 0.50-1.40 Lvl) [place] 542562-09-19 09:25:00 Test Item Value Reference Range Interpretation Comments Sodium Lvl (test code = Sodium Lvl) 135 135-145 [place] 542562-09-19 09:25:00 Test Item Value Reference Range Interpretation Comments Potassium Lvl (test code = Potassium 4.8 3.5-5.1 Lvl) [place] 542562-09-19 09:25:00 Test Item Value Reference Range Interpretation Comments Chloride Lvl (test code = Chloride Lvl) 101 95-109 [place] 542562-09-19 09:25:00 Test Item Value Reference Range Interpretation Comments CO2 (test code = CO2) 25 24-32 [place] [address]-09-19 09:25:00 Test Item Value Reference Range Interpretation Comments Calcium Lvl (test code = Calcium Lvl) 8.3 8.5-10.5 [place] [address]-09-19 09:25:00 Test Item Value Reference Range Interpretation Comments AGAP (test code = AGAP) 13.8 10.0-20.0 [place] [address]-09-19 09:25:00 Test Item Value Reference Range Interpretation Comments eGFR (test code = eGFR) 40 [place] [address]-09-19 09:25:00 Test Item Value Reference Range Interpretation Comments WBC (test code = WBC) 5.6 3.7-10.4 [place] [address]-09-19 09:25:00 Test Item Value Reference Range Interpretation Comments RBC (test code = RBC) 2.64 4.20-5.40 [place] [address]-09-19 09:25:00 Test Item Value Reference Range Interpretation Comments Hgb (test code = Hgb) 9.2 12.0-16.0 [place] [address]-09-19 09:25:00 Test Item Value Reference Range Interpretation Comments Hct (test code = Hct) 27.3 36.0-48.0 [address]09-19 09:25:00 Test Item Value Reference Range Interpretation Comments MCV (test code = MCV) 103.5 80.0-98.0 [place] [address]-09-19 09:25:00 Test Item Value Reference Range Interpretation Comments MCH (test code = MCH) 34.8 pg 27.0-31.0 [place] [address]-09-19 09:25:00 Test Item Value Reference Range Interpretation Comments MCHC (test code = MCHC) 33.6 32.0-36.0 [place] 519362-09-19 09:25:00 Test Item Value Reference Range Interpretation Comments RDW (test code = RDW) 14.2 11.5-14.5 [place] 519362-09-19 09:25:00 Test Item Value Reference Range Interpretation Comments Platelet (test code = Platelet) 208 133-450 [place] 519362-09-19 09:25:00 Test Item Value Reference Range Interpretation Comments MPV (test code = MPV) 7.7 7.4-10.4 [place] 542562-09-19 09:25:00 Test Item Value Reference Range Interpretation Comments Glucose Lvl (test code = Glucose Lvl) 89 70-99 [place] 542562-09-19 09:25:00 Test Item Value Reference Range Interpretation Comments BUN (test code = BUN) 42 7-22 [place] 542562-09-19 09:25:00 Test Item Value Reference Range Interpretation Comments Creatinine Lvl (test code = Creatinine 1.32 0.50-1.40 Lvl) [place] 542562-09-19 09:25:00 Test Item Value Reference Range Interpretation Comments Sodium Lvl (test code = Sodium Lvl) 135 135-145 [place] 542562-09-19 09:25:00 Test Item Value Reference Range Interpretation Comments Potassium Lvl (test code = Potassium 4.8 3.5-5.1 Lvl) [place] 542562-09-19 09:25:00 Test Item Value Reference Range Interpretation Comments Chloride Lvl (test code = Chloride Lvl) 101 95-109 [place] 542562-09-19 09:25:00 Test Item Value Reference Range Interpretation Comments CO2 (test code = CO2) 25 24-32 [place] 542562-09-19 09:25:00 Test Item Value Reference Range Interpretation Comments Calcium Lvl (test code = Calcium Lvl) 8.3 8.5-10.5 [place] 542562-09-19 09:25:00 Test Item Value Reference Range Interpretation Comments AGAP (test code = AGAP) 13.8 10.0-20.0 [place] 542562-09-19 09:25:00 Test Item Value Reference Range Interpretation Comments eGFR (test code = eGFR) 40 [facility]:00 Test Item Value Reference Range Interpretation Comments WBC (test code = WBC) 5.6 3.7-10.4 [place] 519362-09-19 09:25:00 Test Item Value Reference Range Interpretation Comments RBC (test code = RBC) 2.64 4.20-5.40 [place] 519362-09-19 09:25:00 Test Item Value Reference Range Interpretation Comments Hgb (test code = Hgb) 9.2 12.0-16.0 [place] [address]-09-19 09:25:00 Test Item Value Reference Range Interpretation Comments Hct (test code = Hct) 27.3 36.0-48.0 [place] 519362-09-19 09:25:00 Test Item Value Reference Range Interpretation Comments MCV (test code = MCV) 103.5 80.0-98.0 [place] 519362-09-19 09:25:00 Test Item Value Reference Range Interpretation Comments MCH (test code = MCH) 34.8 pg 27.0-31.0 [place] 519362-09-19 09:25:00 Test Item Value Reference Range Interpretation Comments MCHC (test code = MCHC) 33.6 32.0-36.0 [place] 519362-09-19 09:25:00 Test Item Value Reference Range Interpretation Comments RDW (test code = RDW) 14.2 11.5-14.5 [place] 519362-09-19 09:25:00 Test Item Value Reference Range Interpretation Comments Platelet (test code = Platelet) 208 133-450 [facility] 09:25:00 Test Item Value Reference Range Interpretation Comments MPV (test code = MPV) 7.7 7.4-10.4 [facility]2022-09-19 09:25:00 Test Item Value Reference Range Interpretation Comments Glucose Lvl (test code = Glucose Lvl) 89 70-99 [place] 542562-09-19 09:25:00 Test Item Value Reference Range Interpretation Comments BUN (test code = BUN) 42 7-22 [place] 542562-09-19 09:25:00 Test Item Value Reference Range Interpretation Comments Creatinine Lvl (test code = Creatinine 1.32 0.50-1.40 Lvl) [place] 542562-09-19 09:25:00 Test Item Value Reference Range Interpretation Comments Sodium Lvl (test code = Sodium Lvl) 135 135-145 [place] 542562-09-19 09:25:00 Test Item Value Reference Range Interpretation Comments Potassium Lvl (test code = Potassium 4.8 3.5-5.1 Lvl) [place] 542562-09-19 09:25:00 Test Item Value Reference Range Interpretation Comments Chloride Lvl (test code = Chloride Lvl) 101 95-109 [place] 542562-09-19 09:25:00 Test Item Value Reference Range Interpretation Comments CO2 (test code = CO2) 25 24-32 [place] 542562-09-19 09:25:00 Test Item Value Reference Range Interpretation Comments Calcium Lvl (test code = Calcium Lvl) 8.3 8.5-10.5 [place] 542562-09-19 09:25:00 Test Item Value Reference Range Interpretation Comments AGAP (test code = AGAP) 13.8 10.0-20.0 [place] 542562-09-19 09:25:00 Test Item Value Reference Range Interpretation Comments eGFR (test code = eGFR) 40 [place] [address]-09-19 09:25:00 Test Item Value Reference Range Interpretation Comments WBC (test code = WBC) 5.6 3.7-10.4 [place] [address]-09-19 09:25:00 Test Item Value Reference Range Interpretation Comments RBC (test code = RBC) 2.64 4.20-5.40 [place] [address]-09-19 09:25:00 Test Item Value Reference Range Interpretation Comments Hgb (test code = Hgb) 9.2 12.0-16.0 [place] [address]-09-19 09:25:00 Test Item Value Reference Range Interpretation Comments Hct (test code = Hct) 27.3 36.0-48.0 [place] [address]-09-19 09:25:00 Test Item Value Reference Range Interpretation Comments MCV (test code = MCV) 103.5 80.0-98.0 [place] [address]-09-19 09:25:00 Test Item Value Reference Range Interpretation Comments MCH (test code = MCH) 34.8 pg 27.0-31.0 [place] [address]-09-19 09:25:00 Test Item Value Reference Range Interpretation Comments MCHC (test code = MCHC) 33.6 32.0-36.0 [place] [address]-09-19 09:25:00 Test Item Value Reference Range Interpretation Comments RDW (test code = RDW) 14.2 11.5-14.5 [place] [address]-09-19 09:25:00 Test Item Value Reference Range Interpretation Comments Platelet (test code = Platelet) 208 133-450 [place] 519362-09-19 09:25:00 Test Item Value Reference Range Interpretation Comments MPV (test code = MPV) 7.7 7.4-10.4 [place] 542562-09-19 09:25:00 Test Item Value Reference Range Interpretation Comments Glucose Lvl (test code = Glucose Lvl) 89 70-99 [place] 542562-09-19 09:25:00 Test Item Value Reference Range Interpretation Comments BUN (test code = BUN) 42 7-22 [place] 542562-09-19 09:25:00 Test Item Value Reference Range Interpretation Comments Creatinine Lvl (test code = Creatinine 1.32 0.50-1.40 Lvl) [place] 542562-09-19 09:25:00 Test Item Value Reference Range Interpretation Comments Sodium Lvl (test code = Sodium Lvl) 135 135-145 [place] [address]-09-19 09:25:00 Test Item Value Reference Range Interpretation Comments Potassium Lvl (test code = Potassium 4.8 3.5-5.1 Lvl) [place] 542562-09-19 09:25:00 Test Item Value Reference Range Interpretation Comments Chloride Lvl (test code = Chloride Lvl) 101 95-109 [place] 542562-09-19 09:25:00 Test Item Value Reference Range Interpretation Comments CO2 (test code = CO2) 25 24-32 [place] 542562-09-19 09:25:00 Test Item Value Reference Range Interpretation Comments Calcium Lvl (test code = Calcium Lvl) 8.3 8.5-10.5 [facility]2022-09-19 09:25:00 Test Item Value Reference Range Interpretation Comments AGAP (test code = AGAP) 13.8 10.0-20.0 [facility]2022-09-19 09:25:00 Test Item Value Reference Range Interpretation Comments eGFR (test code = eGFR) 40 [place] 519362-09-19 09:25:00 Test Item Value Reference Range Interpretation Comments WBC (test code = WBC) 5.6 3.7-10.4 [place] 519362-09-19 09:25:00 Test Item Value Reference Range Interpretation Comments RBC (test code = RBC) 2.64 4.20-5.40 [place] 519362-09-19 09:25:00 Test Item Value Reference Range Interpretation Comments Hgb (test code = Hgb) 9.2 12.0-16.0 [place] 519362-09-19 09:25:00 Test Item Value Reference Range Interpretation Comments Hct (test code = Hct) 27.3 36.0-48.0 [place] 519362-09-19 09:25:00 Test Item Value Reference Range Interpretation Comments MCV (test code = MCV) 103.5 80.0-98.0 [place] 519362-09-19 09:25:00 Test Item Value Reference Range Interpretation Comments MCH (test code = MCH) 34.8 pg 27.0-31.0 [place] 519362-09-19 09:25:00 Test Item Value Reference Range Interpretation Comments MCHC (test code = MCHC) 33.6 32.0-36.0 [place] 519362-09-19 09:25:00 Test Item Value Reference Range Interpretation Comments RDW (test code = RDW) 14.2 11.5-14.5 [facility] 09:25:00 Test Item Value Reference Range Interpretation Comments Platelet (test code = Platelet) 208 133-450 [place] 519362-09-19 09:25:00 Test Item Value Reference Range Interpretation Comments MPV (test code = MPV) 7.7 7.4-10.4 [place] 542562-09-19 09:25:00 Test Item Value Reference Range Interpretation Comments Glucose Lvl (test code = Glucose Lvl) 89 70-99 [place] 542562-09-19 09:25:00 Test Item Value Reference Range Interpretation Comments BUN (test code = BUN) 42 7-22 [place] [address]-09-19 09:25:00 Test Item Value Reference Range Interpretation Comments Creatinine Lvl (test code = Creatinine 1.32 0.50-1.40 Lvl) [place] [address]-09-19 09:25:00 Test Item Value Reference Range Interpretation Comments Sodium Lvl (test code = Sodium Lvl) 135 135-145 [place] 542562-09-19 09:25:00 Test Item Value Reference Range Interpretation Comments Potassium Lvl (test code = Potassium 4.8 3.5-5.1 Lvl) [place] [address]-09-19 09:25:00 Test Item Value Reference Range Interpretation Comments Chloride Lvl (test code = Chloride Lvl) 101 95-109 [place] [address]-09-19 09:25:00 Test Item Value Reference Range Interpretation Comments CO2 (test code = CO2) 25 24-32 [place] [address]-09-19 09:25:00 Test Item Value Reference Range Interpretation Comments Calcium Lvl (test code = Calcium Lvl) 8.3 8.5-10.5 [place] 542562-09-19 09:25:00 Test Item Value Reference Range Interpretation Comments AGAP (test code = AGAP) 13.8 10.0-20.0 [place] 542562-09-19 09:25:00 Test Item Value Reference Range Interpretation Comments eGFR (test code = eGFR) 40 [place] 519362-09-19 09:25:00 Test Item Value Reference Range Interpretation Comments WBC (test code = WBC) 5.6 3.7-10.4 [place] [address]-09-19 09:25:00 Test Item Value Reference Range Interpretation Comments RBC (test code = RBC) 2.64 4.20-5.40 [place] [address]-09-19 09:25:00 Test Item Value Reference Range Interpretation Comments Hgb (test code = Hgb) 9.2 12.0-16.0 [place] [address]-09-19 09:25:00 Test Item Value Reference Range Interpretation Comments Hct (test code = Hct) 27.3 36.0-48.0 [place] 519362-09-19 09:25:00 Test Item Value Reference Range Interpretation Comments MCV (test code = MCV) 103.5 80.0-98.0 [place] [address]-09-19 09:25:00 Test Item Value Reference Range Interpretation Comments MCH (test code = MCH) 34.8 pg 27.0-31.0 [place] [address]-09-19 09:25:00 Test Item Value Reference Range Interpretation Comments MCHC (test code = MCHC) 33.6 32.0-36.0 [place] 519362-09-19 09:25:00 Test Item Value Reference Range Interpretation Comments RDW (test code = RDW) 14.2 11.5-14.5 [place] [address]-09-19 09:25:00 Test Item Value Reference Range Interpretation Comments Platelet (test code = Platelet) 208 133-450 [place] 519362-09-19 09:25:00 Test Item Value Reference Range Interpretation Comments MPV (test code = MPV) 7.7 7.4-10.4 [place] 542562-09-19 09:25:00 Test Item Value Reference Range Interpretation Comments Glucose Lvl (test code = Glucose Lvl) 89 70-99 [place] 542562-09-19 09:25:00 Test Item Value Reference Range Interpretation Comments BUN (test code = BUN) 42 7-22 [place] 542562-09-19 09:25:00 Test Item Value Reference Range Interpretation Comments Creatinine Lvl (test code = Creatinine 1.32 0.50-1.40 Lvl) [place] 542562-09-19 09:25:00 Test Item Value Reference Range Interpretation Comments Sodium Lvl (test code = Sodium Lvl) 135 135-145 [place] 542562-09-19 09:25:00 Test Item Value Reference Range Interpretation Comments Potassium Lvl (test code = Potassium 4.8 3.5-5.1 Lvl) [place] 542562-09-19 09:25:00 Test Item Value Reference Range Interpretation Comments Chloride Lvl (test code = Chloride Lvl) 101 95-109 [place] 542562-09-19 09:25:00 Test Item Value Reference Range Interpretation Comments CO2 (test code = CO2) 25 24-32 [place] [address]-09-19 09:25:00 Test Item Value Reference Range Interpretation Comments Calcium Lvl (test code = Calcium Lvl) 8.3 8.5-10.5 [place] 542562-09-19 09:25:00 Test Item Value Reference Range Interpretation Comments AGAP (test code = AGAP) 13.8 10.0-20.0 [place] 542562-09-19 09:25:00 Test Item Value Reference Range Interpretation Comments eGFR (test code = eGFR) 40 [place] 519362-09-19 09:25:00 Test Item Value Reference Range Interpretation Comments WBC (test code = WBC) 5.6 3.7-10.4 [place] 519362-09-19 09:25:00 Test Item Value Reference Range Interpretation Comments RBC (test code = RBC) 2.64 4.20-5.40 [place] [address]-09-19 09:25:00 Test Item Value Reference Range Interpretation Comments Hgb (test code = Hgb) 9.2 12.0-16.0 [place] [address]-09-19 09:25:00 Test Item Value Reference Range Interpretation Comments Hct (test code = Hct) 27.3 36.0-48.0 [place] [address]-09-19 09:25:00 Test Item Value Reference Range Interpretation Comments MCV (test code = MCV) 103.5 80.0-98.0 [place] [address]-09-19 09:25:00 Test Item Value Reference Range Interpretation Comments MCH (test code = MCH) 34.8 pg 27.0-31.0 [place] 519362-09-19 09:25:00 Test Item Value Reference Range Interpretation Comments MCHC (test code = MCHC) 33.6 32.0-36.0 [place] [address]-09-19 09:25:00 Test Item Value Reference Range Interpretation Comments RDW (test code = RDW) 14.2 11.5-14.5 [place] [address]-09-19 09:25:00 Test Item Value Reference Range Interpretation Comments Platelet (test code = Platelet) 208 133-450 [place] 519362-09-19 09:25:00 Test Item Value Reference Range Interpretation Comments MPV (test code = MPV) 7.7 7.4-10.4 [place] 542562-09-19 09:25:00 Test Item Value Reference Range Interpretation Comments Glucose Lvl (test code = Glucose Lvl) 89 70-99 [place] 542562-09-19 09:25:00 Test Item Value Reference Range Interpretation Comments BUN (test code = BUN) 42 7-22 [place] [address]-09-19 09:25:00 Test Item Value Reference Range Interpretation Comments Creatinine Lvl (test code = Creatinine 1.32 0.50-1.40 Lvl) [place] 542562-09-19 09:25:00 Test Item Value Reference Range Interpretation Comments Sodium Lvl (test code = Sodium Lvl) 135 135-145 [place] 542562-09-19 09:25:00 Test Item Value Reference Range Interpretation Comments Potassium Lvl (test code = Potassium 4.8 3.5-5.1 Lvl) [place] 542562-09-19 09:25:00 Test Item Value Reference Range Interpretation Comments Chloride Lvl (test code = Chloride Lvl) 101 95-109 [place] 542562-09-19 09:25:00 Test Item Value Reference Range Interpretation Comments CO2 (test code = CO2) 25 24-32 [place] 542562-09-19 09:25:00 Test Item Value Reference Range Interpretation Comments Calcium Lvl (test code = Calcium Lvl) 8.3 8.5-10.5 [place] 542562-09-19 09:25:00 Test Item Value Reference Range Interpretation Comments AGAP (test code = AGAP) 13.8 10.0-20.0 [place] 542562-09-19 09:25:00 Test Item Value Reference Range Interpretation Comments eGFR (test code = eGFR) 40 [place] 519362-09-19 09:25:00 Test Item Value Reference Range Interpretation Comments WBC (test code = WBC) 5.6 3.7-10.4 [place] 519362-09-19 09:25:00 Test Item Value Reference Range Interpretation Comments RBC (test code = RBC) 2.64 4.20-5.40 [place] 519362-09-19 09:25:00 Test Item Value Reference Range Interpretation Comments Hgb (test code = Hgb) 9.2 12.0-16.0 [place] 519362-09-19 09:25:00 Test Item Value Reference Range Interpretation Comments Hct (test code = Hct) 27.3 36.0-48.0 [place] [address]-09-19 09:25:00 Test Item Value Reference Range Interpretation Comments MCV (test code = MCV) 103.5 80.0-98.0 [place] 519362-09-19 09:25:00 Test Item Value Reference Range Interpretation Comments MCH (test code = MCH) 34.8 pg 27.0-31.0 [place] 519362-09-19 09:25:00 Test Item Value Reference Range Interpretation Comments MCHC (test code = MCHC) 33.6 32.0-36.0 [place] 519362-09-19 09:25:00 Test Item Value Reference Range Interpretation Comments RDW (test code = RDW) 14.2 11.5-14.5 [facility]36[facility] 09:25:00 Test Item Value Reference Range Interpretation Comments Platelet (test code = Platelet) 208 133-450 [facility]laSRVFWFEUWO9128[facility]55 09:25:00 Test Item Value Reference Range Interpretation Comments MPV (test code = MPV) 7.7 7.4-10.4 [place] 542562-09-19 09:25:00 Test Item Value Reference Range Interpretation Comments Glucose Lvl (test code = Glucose Lvl) 89 70-99 [facility]2022-09-19 09:25:00 Test Item Value Reference Range Interpretation Comments BUN (test code = BUN) 42 7-22 [place] 542562-09-19 09:25:00 Test Item Value Reference Range Interpretation Comments Creatinine Lvl (test code = Creatinine 1.32 0.50-1.40 Lvl) [place] 542562-09-19 09:25:00 Test Item Value Reference Range Interpretation Comments Sodium Lvl (test code = Sodium Lvl) 135 135-145 [place] 542562-09-19 09:25:00 Test Item Value Reference Range Interpretation Comments Potassium Lvl (test code = Potassium 4.8 3.5-5.1 Lvl) [place] 542562-09-19 09:25:00 Test Item Value Reference Range Interpretation Comments Chloride Lvl (test code = Chloride Lvl) 101 95-109 [place] 542562-09-19 09:25:00 Test Item Value Reference Range Interpretation Comments CO2 (test code = CO2) 25 24-32 [place] 542562-09-19 09:25:00 Test Item Value Reference Range Interpretation Comments Calcium Lvl (test code = Calcium Lvl) 8.3 8.5-10.5 [place] 542562-09-19 09:25:00 Test Item Value Reference Range Interpretation Comments AGAP (test code = AGAP) 13.8 10.0-20.0 [place] 542562-09-19 09:25:00 Test Item Value Reference Range Interpretation Comments eGFR (test code = eGFR) 40 [place] [address]-09-19 09:25:00 Test Item Value Reference Range Interpretation Comments WBC (test code = WBC) 5.6 3.7-10.4 [place] [address]-09-19 09:25:00 Test Item Value Reference Range Interpretation Comments RBC (test code = RBC) 2.64 4.20-5.40 [place] [address]-09-19 09:25:00 Test Item Value Reference Range Interpretation Comments Hgb (test code = Hgb) 9.2 12.0-16.0 [place] [address]-09-19 09:25:00 Test Item Value Reference Range Interpretation Comments Hct (test code = Hct) 27.3 36.0-48.0 [place] [address]-09-19 09:25:00 Test Item Value Reference Range Interpretation Comments MCV (test code = MCV) 103.5 80.0-98.0 [place] [address]-09-19 09:25:00 Test Item Value Reference Range Interpretation Comments MCH (test code = MCH) 34.8 pg 27.0-31.0 [place] 519362-09-19 09:25:00 Test Item Value Reference Range Interpretation Comments MCHC (test code = MCHC) 33.6 32.0-36.0 [place] 519362-09-19 09:25:00 Test Item Value Reference Range Interpretation Comments RDW (test code = RDW) 14.2 11.5-14.5 [place] 519362-09-19 09:25:00 Test Item Value Reference Range Interpretation Comments Platelet (test code = Platelet) 208 133-450 [place] 519362-09-19 09:25:00 Test Item Value Reference Range Interpretation Comments MPV (test code = MPV) 7.7 7.4-10.4 [place] 542562-09-16 10:57:00 Test Item Value Reference Range Interpretation Comments Glucose Lvl (test code = Glucose Lvl) 96 70-99 [place] 542562-09-16 10:57:00 Test Item Value Reference Range Interpretation Comments BUN (test code = BUN) 58 7-22 [place] 542562-09-16 10:57:00 Test Item Value Reference Range Interpretation Comments Creatinine Lvl (test code = Creatinine 1.61 0.50-1.40 Lvl) [place] 542562-09-16 10:57:00 Test Item Value Reference Range Interpretation Comments Sodium Lvl (test code = Sodium Lvl) 136 135-145 [place] 542562-09-16 10:57:00 Test Item Value Reference Range Interpretation Comments Potassium Lvl (test code = Potassium 5.1 3.5-5.1 Lvl) [place] 542562-09-16 10:57:00 Test Item Value Reference Range Interpretation Comments Chloride Lvl (test code = Chloride Lvl) 104 95-109 [place] 542562-09-16 10:57:00 Test Item Value Reference Range Interpretation Comments CO2 (test code = CO2) 25 24-32 [place] 542562-09-16 10:57:00 Test Item Value Reference Range Interpretation Comments Calcium Lvl (test code = Calcium Lvl) 8.7 8.5-10.5 [place] 542562-09-16 10:57:00 Test Item Value Reference Range Interpretation Comments AGAP (test code = AGAP) 12.1 10.0-20.0 [place] 542562-09-16 10:57:00 Test Item Value Reference Range Interpretation Comments eGFR (test code = eGFR) 32 [facility]CdpnmdbKVSGDYQXPQ8849-46-31 10:57:00 Test Item Value Reference Range Interpretation Comments Sed Rate (test code = 39 See_Comment [Auto mated message] The Sed Rate) system which ge nerated this result transmit rosendo reference range : <=20. The reference range was not used to interpr et this result as josi l/abnormal. [facility]nsBXEXEEDMGZ9728[facility]13-83 10:57:00 Test Item Value Reference Range Interpretation Comments C-REACTIVE PROTEIN (test code = 31.8 C-REACTIVE PROTEIN) [facility]2022-09-16 10:57:00 Test Item Value Reference Range Interpretation Comments Glucose Lvl (test code = Glucose Lvl) 96 70-99 [place] 542562-09-16 10:57:00 Test Item Value Reference Range Interpretation Comments BUN (test code = BUN) 58 7-22 [place] 542562-09-16 10:57:00 Test Item Value Reference Range Interpretation Comments Creatinine Lvl (test code = Creatinine 1.61 0.50-1.40 Lvl) [place] 542562-09-16 10:57:00 Test Item Value Reference Range Interpretation Comments Sodium Lvl (test code = Sodium Lvl) 136 135-145 [place] 542562-09-16 10:57:00 Test Item Value Reference Range Interpretation Comments Potassium Lvl (test code = Potassium 5.1 3.5-5.1 Lvl) [place] 542562-09-16 10:57:00 Test Item Value Reference Range Interpretation Comments Chloride Lvl (test code = Chloride Lvl) 104 95-109 [place] 542562-09-16 10:57:00 Test Item Value Reference Range Interpretation Comments CO2 (test code = CO2) 25 24-32 [place] 542562-09-16 10:57:00 Test Item Value Reference Range Interpretation Comments Calcium Lvl (test code = Calcium Lvl) 8.7 8.5-10.5 [place] 542562-09-16 10:57:00 Test Item Value Reference Range Interpretation Comments AGAP (test code = AGAP) 12.1 10.0-20.0 [facility]2022-09-16 10:57:00 Test Item Value Reference Range Interpretation Comments eGFR (test code = eGFR) 32 [facility] ServicesEjpmjmxUULXROVGFC6444-39-09 10:57:00 Test Item Value Reference Range Interpretation Comments Sed Rate (test code = 39 See_Comment [Auto mated message] The Sed Rate) system which ge nerated this result transmit rosendo reference range : <=20. The reference range was not used to interpr et this result as josi l/abnormal. [facility] HospitalAszlsxxYICEKKQDHG6876-62-89 10:57:00 Test Item Value Reference Range Interpretation Comments C-REACTIVE PROTEIN (test code = 31.8 C-REACTIVE PROTEIN) [facility]2022-09-16 10:57:00 Test Item Value Reference Range Interpretation Comments Glucose Lvl (test code = Glucose Lvl) 96 70-99 [facility]2022-09-16 10:57:00 Test Item Value Reference Range Interpretation Comments BUN (test code = BUN) 58 7-22 [facility]2022-09-16 10:57:00 Test Item Value Reference Range Interpretation Comments Creatinine Lvl (test code = Creatinine 1.61 0.50-1.40 Lvl) [facility]2022-09-16 10:57:00 Test Item Value Reference Range Interpretation Comments Sodium Lvl (test code = Sodium Lvl) 136 135-145 [facility]2022-09-16 10:57:00 Test Item Value Reference Range Interpretation Comments Potassium Lvl (test code = Potassium 5.1 3.5-5.1 Lvl) [facility]2022-09-16 10:57:00 Test Item Value Reference Range Interpretation Comments Chloride Lvl (test code = Chloride Lvl) 104 95-109 [place] 542562-09-16 10:57:00 Test Item Value Reference Range Interpretation Comments CO2 (test code = CO2) 25 24-32 [place] 542562-09-16 10:57:00 Test Item Value Reference Range Interpretation Comments Calcium Lvl (test code = Calcium Lvl) 8.7 8.5-10.5 [facility]2022-09-16 10:57:00 Test Item Value Reference Range Interpretation Comments AGAP (test code = AGAP) 12.1 10.0-20.0 [facility]2022-09-16 10:57:00 Test Item Value Reference Range Interpretation Comments eGFR (test code = eGFR) 32 [facility] ServicesSdvoygxPZLCQOVELL8838-46-90 10:57:00 Test Item Value Reference Range Interpretation Comments Sed Rate (test code = 39 See_Comment [Auto mated message] The Sed Rate) system which ge nerated this result transmit rosendo reference range : <=20. The reference range was not used to interpr et this result as josi l/abnormal. [facility]XjsskjbVEWLSCJSYE5273-02-89 10:57:00 Test Item Value Reference Range Interpretation Comments C-REACTIVE PROTEIN (test code = 31.8 C-REACTIVE PROTEIN) [facility]2022-09-16 10:57:00 Test Item Value Reference Range Interpretation Comments Glucose Lvl (test code = Glucose Lvl) 96 70-99 [facility]2022-09-16 10:57:00 Test Item Value Reference Range Interpretation Comments BUN (test code = BUN) 58 7-22 [place] 542562-09-16 10:57:00 Test Item Value Reference Range Interpretation Comments Creatinine Lvl (test code = Creatinine 1.61 0.50-1.40 Lvl) [facility]2022-09-16 10:57:00 Test Item Value Reference Range Interpretation Comments Sodium Lvl (test code = Sodium Lvl) 136 135-145 [place] 542562-09-16 10:57:00 Test Item Value Reference Range Interpretation Comments Potassium Lvl (test code = Potassium 5.1 3.5-5.1 Lvl) [place] 542562-09-16 10:57:00 Test Item Value Reference Range Interpretation Comments Chloride Lvl (test code = Chloride Lvl) 104 95-109 [place] 542562-09-16 10:57:00 Test Item Value Reference Range Interpretation Comments CO2 (test code = CO2) 25 24-32 [place] 542562-09-16 10:57:00 Test Item Value Reference Range Interpretation Comments Calcium Lvl (test code = Calcium Lvl) 8.7 8.5-10.5 [place] 542562-09-16 10:57:00 Test Item Value Reference Range Interpretation Comments AGAP (test code = AGAP) 12.1 10.0-20.0 [place] 542562-09-16 10:57:00 Test Item Value Reference Range Interpretation Comments eGFR (test code = eGFR) 32 [facility]81[facility] 10:57:00 Test Item Value Reference Range Interpretation Comments Sed Rate (test code = 39 See_Comment [Auto mated message] The Sed Rate) system which ge nerated this result transmit rosendo reference range : <=20. The reference range was not used to interpr et this result as josi l/abnormal. [facility] HospitalYvrjednQHMLVRPGVM7742-11-76 10:57:00 Test Item Value Reference Range Interpretation Comments C-REACTIVE PROTEIN (test code = 31.8 C-REACTIVE PROTEIN) [place] 542562-09-16 10:57:00 Test Item Value Reference Range Interpretation Comments Glucose Lvl (test code = Glucose Lvl) 96 70-99 [facility]2022-09-16 10:57:00 Test Item Value Reference Range Interpretation Comments BUN (test code = BUN) 58 7-22 [place] 542562-09-16 10:57:00 Test Item Value Reference Range Interpretation Comments Creatinine Lvl (test code = Creatinine 1.61 0.50-1.40 Lvl) [facility]2022-09-16 10:57:00 Test Item Value Reference Range Interpretation Comments Sodium Lvl (test code = Sodium Lvl) 136 135-145 [place] 542562-09-16 10:57:00 Test Item Value Reference Range Interpretation Comments Potassium Lvl (test code = Potassium 5.1 3.5-5.1 Lvl) [place] 542562-09-16 10:57:00 Test Item Value Reference Range Interpretation Comments Chloride Lvl (test code = Chloride Lvl) 104 95-109 [place] 542562-09-16 10:57:00 Test Item Value Reference Range Interpretation Comments CO2 (test code = CO2) 25 24-32 [place] 542562-09-16 10:57:00 Test Item Value Reference Range Interpretation Comments Calcium Lvl (test code = Calcium Lvl) 8.7 8.5-10.5 [place] 542562-09-16 10:57:00 Test Item Value Reference Range Interpretation Comments AGAP (test code = AGAP) 12.1 10.0-20.0 [facility]2022-09-16 10:57:00 Test Item Value Reference Range Interpretation Comments eGFR (test code = eGFR) 32 [facility]CffibeiZEFAMBOYGA9704-37-95 10:57:00 Test Item Value Reference Range Interpretation Comments Sed Rate (test code = 39 See_Comment [Auto mated message] The Sed Rate) system which ge nerated this result transmit rosendo reference range : <=20. The reference range was not used to interpr et this result as josi l/abnormal. [facility] HospitalSpkiirhRJUTBYZWBF6878-00-79 10:57:00 Test Item Value Reference Range Interpretation Comments C-REACTIVE PROTEIN (test code = 31.8 C-REACTIVE PROTEIN) [facility]2022-09-16 10:57:00 Test Item Value Reference Range Interpretation Comments Glucose Lvl (test code = Glucose Lvl) 96 70-99 [facility]2022-09-16 10:57:00 Test Item Value Reference Range Interpretation Comments BUN (test code = BUN) 58 7-22 [facility]2022-09-16 10:57:00 Test Item Value Reference Range Interpretation Comments Creatinine Lvl (test code = Creatinine 1.61 0.50-1.40 Lvl) [facility]2022-09-16 10:57:00 Test Item Value Reference Range Interpretation Comments Sodium Lvl (test code = Sodium Lvl) 136 135-145 [facility]2022-09-16 10:57:00 Test Item Value Reference Range Interpretation Comments Potassium Lvl (test code = Potassium 5.1 3.5-5.1 Lvl) [facility]2022-09-16 10:57:00 Test Item Value Reference Range Interpretation Comments Chloride Lvl (test code = Chloride Lvl) 104 95-109 [place] 542562-09-16 10:57:00 Test Item Value Reference Range Interpretation Comments CO2 (test code = CO2) 25 24-32 [facility]2022-09-16 10:57:00 Test Item Value Reference Range Interpretation Comments Calcium Lvl (test code = Calcium Lvl) 8.7 8.5-10.5 [place] 542562-09-16 10:57:00 Test Item Value Reference Range Interpretation Comments AGAP (test code = AGAP) 12.1 10.0-20.0 [place] 542562-09-16 10:57:00 Test Item Value Reference Range Interpretation Comments eGFR (test code = eGFR) 32 [facility]XhuyttyMJUUXXYINA7917-14-99 10:57:00 Test Item Value Reference Range Interpretation Comments Sed Rate (test code = 39 See_Comment [Auto mated message] The Sed Rate) system which ge nerated this result transmit rosendo reference range : <=20. The reference range was not used to interpr et this result as josi l/abnormal. [facility] HospitalJfmeeyqOTZZDNZCBC0077-63-47 10:57:00 Test Item Value Reference Range Interpretation Comments C-REACTIVE PROTEIN (test code = 31.8 C-REACTIVE PROTEIN) [facility]2022-09-16 10:57:00 Test Item Value Reference Range Interpretation Comments Glucose Lvl (test code = Glucose Lvl) 96 70-99 [place] 542562-09-16 10:57:00 Test Item Value Reference Range Interpretation Comments BUN (test code = BUN) 58 7-22 [place] 542562-09-16 10:57:00 Test Item Value Reference Range Interpretation Comments Creatinine Lvl (test code = Creatinine 1.61 0.50-1.40 Lvl) [facility]2022-09-16 10:57:00 Test Item Value Reference Range Interpretation Comments Sodium Lvl (test code = Sodium Lvl) 136 135-145 [facility]2022-09-16 10:57:00 Test Item Value Reference Range Interpretation Comments Potassium Lvl (test code = Potassium 5.1 3.5-5.1 Lvl) [place] 542562-09-16 10:57:00 Test Item Value Reference Range Interpretation Comments Chloride Lvl (test code = Chloride Lvl) 104 95-109 [place] 542562-09-16 10:57:00 Test Item Value Reference Range Interpretation Comments CO2 (test code = CO2) 25 24-32 [facility]2022-09-16 10:57:00 Test Item Value Reference Range Interpretation Comments Calcium Lvl (test code = Calcium Lvl) 8.7 8.5-10.5 [place] 542562-09-16 10:57:00 Test Item Value Reference Range Interpretation Comments AGAP (test code = AGAP) 12.1 10.0-20.0 [place] 542562-09-16 10:57:00 Test Item Value Reference Range Interpretation Comments eGFR (test code = eGFR) 32 [facility]JilsdcbVLIWOQJCXG0448-88-63 10:57:00 Test Item Value Reference Range Interpretation Comments Sed Rate (test code = 39 See_Comment [Auto mated message] The Sed Rate) system which ge nerated this result transmit rosendo reference range : <=20. The reference range was not used to interpr et this result as josi l/abnormal. [facility] HospitalHojfydkCNZMCDBGZS2857-19-49 10:57:00 Test Item Value Reference Range Interpretation Comments C-REACTIVE PROTEIN (test code = 31.8 C-REACTIVE PROTEIN) [facility]2022-09-16 10:57:00 Test Item Value Reference Range Interpretation Comments Glucose Lvl (test code = Glucose Lvl) 96 70-99 [place] 542562-09-16 10:57:00 Test Item Value Reference Range Interpretation Comments BUN (test code = BUN) 58 7-22 [place] 542562-09-16 10:57:00 Test Item Value Reference Range Interpretation Comments Creatinine Lvl (test code = Creatinine 1.61 0.50-1.40 Lvl) [place] [address]-09-16 10:57:00 Test Item Value Reference Range Interpretation Comments Sodium Lvl (test code = Sodium Lvl) 136 135-145 [place] 542562-09-16 10:57:00 Test Item Value Reference Range Interpretation Comments Potassium Lvl (test code = Potassium 5.1 3.5-5.1 Lvl) [place] 542562-09-16 10:57:00 Test Item Value Reference Range Interpretation Comments Chloride Lvl (test code = Chloride Lvl) 104 95-109 [place] 542562-09-16 10:57:00 Test Item Value Reference Range Interpretation Comments CO2 (test code = CO2) 25 24-32 [place] 542562-09-16 10:57:00 Test Item Value Reference Range Interpretation Comments Calcium Lvl (test code = Calcium Lvl) 8.7 8.5-10.5 [place] 542562-09-16 10:57:00 Test Item Value Reference Range Interpretation Comments AGAP (test code = AGAP) 12.1 10.0-20.0 [place] 542562-09-16 10:57:00 Test Item Value Reference Range Interpretation Comments eGFR (test code = eGFR) 32 [facility] CenterMndispaGASNXBESNC1111-34-31 10:57:00 Test Item Value Reference Range Interpretation Comments Sed Rate (test code = 39 See_Comment [Auto mated message] The Sed Rate) system which ge nerated this result transmit rosendo reference range : <=20. The reference range was not used to interpr et this result as josi l/abnormal. [facility] HospitalClwjdvbDWZMRRRUZU2559-31-07 10:57:00 Test Item Value Reference Range Interpretation Comments C-REACTIVE PROTEIN (test code = 31.8 C-REACTIVE PROTEIN) [facility]2022-09-16 10:57:00 Test Item Value Reference Range Interpretation Comments Glucose Lvl (test code = Glucose Lvl) 96 70-99 [place] 542562-09-16 10:57:00 Test Item Value Reference Range Interpretation Comments BUN (test code = BUN) 58 7-22 [place] 542562-09-16 10:57:00 Test Item Value Reference Range Interpretation Comments Creatinine Lvl (test code = Creatinine 1.61 0.50-1.40 Lvl) [place] 542562-09-16 10:57:00 Test Item Value Reference Range Interpretation Comments Sodium Lvl (test code = Sodium Lvl) 136 135-145 [place] 542562-09-16 10:57:00 Test Item Value Reference Range Interpretation Comments Potassium Lvl (test code = Potassium 5.1 3.5-5.1 Lvl) [place] 542562-09-16 10:57:00 Test Item Value Reference Range Interpretation Comments Chloride Lvl (test code = Chloride Lvl) 104 95-109 [place] 542562-09-16 10:57:00 Test Item Value Reference Range Interpretation Comments CO2 (test code = CO2) 25 24-32 [place] 542562-09-16 10:57:00 Test Item Value Reference Range Interpretation Comments Calcium Lvl (test code = Calcium Lvl) 8.7 8.5-10.5 [place] 542562-09-16 10:57:00 Test Item Value Reference Range Interpretation Comments AGAP (test code = AGAP) 12.1 10.0-20.0 [place] 542562-09-16 10:57:00 Test Item Value Reference Range Interpretation Comments eGFR (test code = eGFR) 32 [facility] ServicesMlovlxdKJNDKWMDQH7302-88-47 10:57:00 Test Item Value Reference Range Interpretation Comments Sed Rate (test code = 39 See_Comment [Auto mated message] The Sed Rate) system which ge nerated this result transmit rosendo reference range : <=20. The reference range was not used to interpr et this result as josi l/abnormal. [facility] HospitalFsjudjcNCAYNEUPXE4875-98-19 10:57:00 Test Item Value Reference Range Interpretation Comments C-REACTIVE PROTEIN (test code = 31.8 C-REACTIVE PROTEIN) [facility]2022-09-16 10:57:00 Test Item Value Reference Range Interpretation Comments Glucose Lvl (test code = Glucose Lvl) 96 70-99 [facility]2022-09-16 10:57:00 Test Item Value Reference Range Interpretation Comments BUN (test code = BUN) 58 7-22 [place] 542562-09-16 10:57:00 Test Item Value Reference Range Interpretation Comments Creatinine Lvl (test code = Creatinine 1.61 0.50-1.40 Lvl) [place] 542562-09-16 10:57:00 Test Item Value Reference Range Interpretation Comments Sodium Lvl (test code = Sodium Lvl) 136 135-145 [place] 542562-09-16 10:57:00 Test Item Value Reference Range Interpretation Comments Potassium Lvl (test code = Potassium 5.1 3.5-5.1 Lvl) [place] 542562-09-16 10:57:00 Test Item Value Reference Range Interpretation Comments Chloride Lvl (test code = Chloride Lvl) 104 95-109 [place] 542562-09-16 10:57:00 Test Item Value Reference Range Interpretation Comments CO2 (test code = CO2) 25 24-32 [place] 542562-09-16 10:57:00 Test Item Value Reference Range Interpretation Comments Calcium Lvl (test code = Calcium Lvl) 8.7 8.5-10.5 [place] 542562-09-16 10:57:00 Test Item Value Reference Range Interpretation Comments AGAP (test code = AGAP) 12.1 10.0-20.0 [place] 542562-09-16 10:57:00 Test Item Value Reference Range Interpretation Comments eGFR (test code = eGFR) 32 [facility]XydkhmgTPOTKUUASP3396-64-61 10:57:00 Test Item Value Reference Range Interpretation Comments Sed Rate (test code = 39 See_Comment [Auto mated message] The Sed Rate) system which ge nerated this result transmit rosendo reference range : <=20. The reference range was not used to interpr et this result as josi l/abnormal. [facility] HospitalKevjjmbKCTLLPQIHJ1512-14-22 10:57:00 Test Item Value Reference Range Interpretation Comments C-REACTIVE PROTEIN (test code = 31.8 C-REACTIVE PROTEIN) [place] 542562-09-16 10:57:00 Test Item Value Reference Range Interpretation Comments Glucose Lvl (test code = Glucose Lvl) 96 70-99 [place] 542562-09-16 10:57:00 Test Item Value Reference Range Interpretation Comments BUN (test code = BUN) 58 7-22 [place] 542562-09-16 10:57:00 Test Item Value Reference Range Interpretation Comments Creatinine Lvl (test code = Creatinine 1.61 0.50-1.40 Lvl) [place] 542562-09-16 10:57:00 Test Item Value Reference Range Interpretation Comments Sodium Lvl (test code = Sodium Lvl) 136 135-145 [place] 542562-09-16 10:57:00 Test Item Value Reference Range Interpretation Comments Potassium Lvl (test code = Potassium 5.1 3.5-5.1 Lvl) [place] 542562-09-16 10:57:00 Test Item Value Reference Range Interpretation Comments Chloride Lvl (test code = Chloride Lvl) 104 95-109 [place] 542562-09-16 10:57:00 Test Item Value Reference Range Interpretation Comments CO2 (test code = CO2) 25 24-32 [place] 542562-09-16 10:57:00 Test Item Value Reference Range Interpretation Comments Calcium Lvl (test code = Calcium Lvl) 8.7 8.5-10.5 [place] 542562-09-16 10:57:00 Test Item Value Reference Range Interpretation Comments AGAP (test code = AGAP) 12.1 10.0-20.0 [place] 542562-09-16 10:57:00 Test Item Value Reference Range Interpretation Comments eGFR (test code = eGFR) 32 [facility] ServicesEoaybvrNBMCFDCCOX7622-08-36 10:57:00 Test Item Value Reference Range Interpretation Comments Sed Rate (test code = 39 See_Comment [Auto mated message] The Sed Rate) system which ge nerated this result transmit rosendo reference range : <=20. The reference range was not used to interpr et this result as josi l/abnormal. [facility] HospitalTlopeqoLGCLHYNCRZ3506-44-22 10:57:00 Test Item Value Reference Range Interpretation Comments C-REACTIVE PROTEIN (test code = 31.8 C-REACTIVE PROTEIN) [place] 542562-09-12 11:25:00 Test Item Value Reference Range Interpretation Comments Glucose Lvl (test code = Glucose Lvl) 82 70-99 [place] 542562-09-12 11:25:00 Test Item Value Reference Range Interpretation Comments BUN (test code = BUN) 41 7-22 [place] 542562-09-12 11:25:00 Test Item Value Reference Range Interpretation Comments Creatinine Lvl (test code = Creatinine 1.33 0.50-1.40 Lvl) [place] 542562-09-12 11:25:00 Test Item Value Reference Range Interpretation Comments Sodium Lvl (test code = Sodium Lvl) 132 135-145 [place] 542562-09-12 11:25:00 Test Item Value Reference Range Interpretation Comments Potassium Lvl (test code = Potassium 5.1 3.5-5.1 Lvl) [place] 542562-09-12 11:25:00 Test Item Value Reference Range Interpretation Comments Chloride Lvl (test code = Chloride Lvl) 100 95-109 [place] 542562-09-12 11:25:00 Test Item Value Reference Range Interpretation Comments CO2 (test code = CO2) 24 24-32 [place] 542562-09-12 11:25:00 Test Item Value Reference Range Interpretation Comments Calcium Lvl (test code = Calcium Lvl) 8.9 8.5-10.5 [place] 542562-09-12 11:25:00 Test Item Value Reference Range Interpretation Comments Total Protein (test code = Total 6.9 6.4-8.4 Protein) [place] 542562-09-12 11:25:00 Test Item Value Reference Range Interpretation Comments Albumin Lvl (test code = Albumin Lvl) 3.1 3.5-5.0 [place] 542562-09-12 11:25:00 Test Item Value Reference Range Interpretation Comments ALT (test code = ALT) 50 See_Comment [Auto mated message] The system which ge nerated this result transmit rosendo reference range : <=65. The reference range was not used to interpr et this result as josi l/abnormal. [place] 542562-09-12 11:25:00 Test Item Value Reference Range Interpretation Comments AST (test code = AST) 45 See_Comment [Auto mated message] The system which ge nerated this result transmit rosendo reference range : <=37. The reference range was not used to interpr et this result as josi l/abnormal. [place] 542562-09-12 11:25:00 Test Item Value Reference Range Interpretation Comments Alk Phos (test code = Alk Phos) 127 39-136 [place] 542562-09-12 11:25:00 Test Item Value Reference Range Interpretation Comments Bili Total (test code = Bili Total) 0.4 0.2-1.3 [place] [address]-09-12 11:25:00 Test Item Value Reference Range Interpretation Comments AGAP (test code = AGAP) 13.1 10.0-20.0 [place] 542562-09-12 11:25:00 Test Item Value Reference Range Interpretation Comments B/C Ratio (test code = B/C Ratio) 31 1 6-25 [place] [address]-09-12 11:25:00 Test Item Value Reference Range Interpretation Comments Globulin (test code = Globulin) 3.8 2.7-4.2 [place] [address]-09-12 11:25:00 Test Item Value Reference Range Interpretation Comments A/G Ratio (test code = A/G Ratio) 0.8 1 0.7-1.[address]09-12 11:25:00 Test Item Value Reference Range Interpretation Comments eGFR (test code = eGFR) 40 [place] [address]-09-12 11:25:00 Test Item Value Reference Range Interpretation Comments Phosphorus (test code = Phosphorus) 4.2 2.5-4.5 [place] [address]-09-12 11:25:00 Test Item Value Reference Range Interpretation Comments Magnesium Lvl (test code = Magnesium 2.4 1.8-2.4 Lvl) [place] [address]-09-12 11:25:00 Test Item Value Reference Range Interpretation Comments Vitamin D, 25-OH, Total (test code = 46 Vitamin D, 25-OH, Total) [place] [address]-09-12 11:25:00 Test Item Value Reference Range Interpretation Comments Segs (test code = Segs) 46.0 45.0-75.0 [place] [address]-09-12 11:25:00 Test Item Value Reference Range Interpretation Comments Lymphocytes (test code = Lymphocytes) 34.8 20.0-40.0 [place] [address]-09-12 11:25:00 Test Item Value Reference Range Interpretation Comments Monocytes (test code = Monocytes) 12.4 2.0-12.0 [place] [address]-09-12 11:25:00 Test Item Value Reference Range Interpretation Comments Eosinophils (test code = 5.6 See_Comment [A utomated message] The Eosinophils) system which ge nerated this result tra nsmitted reference range : <=4.0. The reference r patria was not used to int erpret this result as normal/abnormal . [place] [address]-09-12 11:25:00 Test Item Value Reference Range Interpretation Comments Basophils (test code = 1.2 See_Comment [Aut omated message] The Basophils) system which ge nerated this result tra nsmitted reference range : <=1.0. The reference r patria was not used to int erpret this result as normal/abnormal . [place] [address]-09-12 11:25:00 Test Item Value Reference Range Interpretation Comments Neutrophils # (test code = Neutrophils 2.3 1.5-8.1 #) [place] [address]-09-12 11:25:00 Test Item Value Reference Range Interpretation Comments Lymphocytes # (test code = Lymphocytes 1.8 1.0-5.5 #) [facility] 11:25:00 Test Item Value Reference Range Interpretation Comments Monocytes # (test code 0.6 See_Comment [Aut omated message] The = Monocytes #) system which generated this result tra nsmitted reference range : <=0.8. The reference r patria was not used to int erpret this result as normal/abnormal . [place] 519362-09-12 11:25:00 Test Item Value Reference Range Interpretation Comments Eosinophils # (test code 0.3 See_Comment [A utomated message] The = Eosinophils #) system whic h generated this result tra nsmitted reference range : <=0.5. The reference r patria was not used to int erpret this result as normal/abnormal . [facility]KtszybnBYFRJEJDLB6485-36-93 11:25:00 Test Item Value Reference Range Interpretation Comments Basophils # (test code 0.1 See_Comment [Aut omated message] The = Basophils #) system which generated this result tra nsmitted reference range : <=0.2. The reference r patria was not used to int erpret this result as normal/abnormal . [facility]PmbgtuqFFQDRFFQXB9832-00-55 11:25:00 Test Item Value Reference Range Interpretation Comments Macrocyte (test code = 1+ *ABN*(07/23/22 Macrocyte) 6:25 AM) [place] 519362-09-12 11:25:00 Test Item Value Reference Range Interpretation Comments WBC (test code = WBC) 5.0 3.7-10.4 [place] 519362-09-12 11:25:00 Test Item Value Reference Range Interpretation Comments RBC (test code = RBC) 2.89 4.20-5.40 [place] [address]-09-12 11:25:00 Test Item Value Reference Range Interpretation Comments Hgb (test code = Hgb) 10.2 12.0-16.0 [place] [address]-09-12 11:25:00 Test Item Value Reference Range Interpretation Comments Hct (test code = Hct) 29.4 36.0-48.0 [place] [address]-09-12 11:25:00 Test Item Value Reference Range Interpretation Comments MCV (test code = MCV) 101.8 80.0-98.0 [facility]YmqkuqnXJVQYUECAW8180-40-96 11:25:00 Test Item Value Reference Range Interpretation Comments MCH (test code = MCH) 35.3 pg 27.0-31.0 [facility] ServicesJconqfiXJWCNVBLJL4071-28-54 11:25:00 Test Item Value Reference Range Interpretation Comments MCHC (test code = MCHC) 34.7 32.0-36.0 [facility] ServicesZfbfvztAOXVBGPFXM1983-17-02 11:25:00 Test Item Value Reference Range Interpretation Comments RDW (test code = RDW) 14.9 11.5-14.5 [facility] ServicesQnvpsivYUBFRSYKBZ6040-01-09 11:25:00 Test Item Value Reference Range Interpretation Comments Platelet (test code = Platelet) 252 133-450 [facility] ServicesLyhwzbqUJKETVNZLE8393-38-24 11:25:00 Test Item Value Reference Range Interpretation Comments MPV (test code = MPV) 7.2 7.4-10.4 [facility]MbtyztpRCGDANGJFJ4647-37-06 11:25:00 Test Item Value Reference Range Interpretation Comments Prealbumin (test code = Prealbumin) 16.7 18.0-45.0 [facility]KjpccfcLXHLMY4604-61-29 11:25:00 Test Item Value Reference Range Interpretation Comments Trig (test code = Trig) 44 [facility] HospitalDdhgpysRJEAGF9151-97-22 11:25:00 Test Item Value Reference Range Interpretation Comments Chol (test code = Chol) 129 [facility] HospitalCcvaflhVKSNIC2235-73-79 11:25:00 Test Item Value Reference Range Interpretation Comments HDL (test code = HDL) 74 [facility] HospitalMaquqkkQSSEJE3104-38-89 11:25:00 Test Item Value Reference Range Interpretation Comments CHD Risk (test code = CHD Risk) 1.74 1 3.90-5.80 [facility] HospitalMtzayvyYYKBFB3774-04-08 11:25:00 Test Item Value Reference Range Interpretation Comments LDL (Calculated) (test code = LDL 46 (Calculated)) [facility] HospitalPhuvwkqMDXFJA5843-24-94 11:25:00 Test Item Value Reference Range Interpretation Comments VLDL (test code = VLDL) 9 [facility]AX[facility]24[facility]29[facility]77 11:25:00 Test Item Value Reference Range Interpretation Comments Hgb A1C (test code = Hgb A1C) 4.8 [place] 542562-09-12 11:25:00 Test Item Value Reference Range Interpretation Comments Glucose Lvl (test code = Glucose Lvl) 82 70-99 [place] 542562-09-12 11:25:00 Test Item Value Reference Range Interpretation Comments BUN (test code = BUN) 41 7-22 [place] 542562-09-12 11:25:00 Test Item Value Reference Range Interpretation Comments Creatinine Lvl (test code = Creatinine 1.33 0.50-1.40 Lvl) [place] 542562-09-12 11:25:00 Test Item Value Reference Range Interpretation Comments Sodium Lvl (test code = Sodium Lvl) 132 135-145 [place] 542562-09-12 11:25:00 Test Item Value Reference Range Interpretation Comments Potassium Lvl (test code = Potassium 5.1 3.5-5.1 Lvl) [place] 542562-09-12 11:25:00 Test Item Value Reference Range Interpretation Comments Chloride Lvl (test code = Chloride Lvl) 100 95-109 [place] 542562-09-12 11:25:00 Test Item Value Reference Range Interpretation Comments CO2 (test code = CO2) 24 24-32 [place] 542562-09-12 11:25:00 Test Item Value Reference Range Interpretation Comments Calcium Lvl (test code = Calcium Lvl) 8.9 8.5-10.5 [place] 542562-09-12 11:25:00 Test Item Value Reference Range Interpretation Comments Total Protein (test code = Total 6.9 6.4-8.4 Protein) [place] 542562-09-12 11:25:00 Test Item Value Reference Range Interpretation Comments Albumin Lvl (test code = Albumin Lvl) 3.1 3.5-5.0 [place] 542562-09-12 11:25:00 Test Item Value Reference Range Interpretation Comments ALT (test code = ALT) 50 See_Comment [Auto mated message] The system which ge nerated this result transmit rosendo reference range : <=65. The reference range was not used to interpr et this result as josi l/abnormal. [place] 542562-09-12 11:25:00 Test Item Value Reference Range Interpretation Comments AST (test code = AST) 45 See_Comment [Auto mated message] The system which ge nerated this result transmit rosendo reference range : <=37. The reference range was not used to interpr et this result as josi l/abnormal. [facility]2022-09-12 11:25:00 Test Item Value Reference Range Interpretation Comments Alk Phos (test code = Alk Phos) 127 39-136 [facility]2022-09-12 11:25:00 Test Item Value Reference Range Interpretation Comments Bili Total (test code = Bili Total) 0.4 0.2-1.3 [facility]2022-09-12 11:25:00 Test Item Value Reference Range Interpretation Comments AGAP (test code = AGAP) 13.1 10.0-20.0 [facility]2022-09-12 11:25:00 Test Item Value Reference Range Interpretation Comments B/C Ratio (test code = B/C Ratio) 31 1 6-25 [place] 542562-09-12 11:25:00 Test Item Value Reference Range Interpretation Comments Globulin (test code = Globulin) 3.8 2.7-4.2 [facility]2022-09-12 11:25:00 Test Item Value Reference Range Interpretation Comments A/G Ratio (test code = A/G Ratio) 0.8 1 0.7-1.6 [facility]2022-09-12 11:25:00 Test Item Value Reference Range Interpretation Comments eGFR (test code = eGFR) 40 [facility]2022-09-12 11:25:00 Test Item Value Reference Range Interpretation Comments Phosphorus (test code = Phosphorus) 4.2 2.5-4.5 [facility]2022-09-12 11:25:00 Test Item Value Reference Range Interpretation Comments Magnesium Lvl (test code = Magnesium 2.4 1.8-2.4 Lvl) [facility]2022-09-12 11:25:00 Test Item Value Reference Range Interpretation Comments Vitamin D, 25-OH, Total (test code = 46 Vitamin D, 25-OH, Total) [facility] HospitalJxvndeaOKTFZTPBKS3476-39-46 11:25:00 Test Item Value Reference Range Interpretation Comments Segs (test code = Segs) 46.0 45.0-75.0 [place] [address]-09-12 11:25:00 Test Item Value Reference Range Interpretation Comments Lymphocytes (test code = Lymphocytes) 34.8 20.0-40.0 [place] [address]-09-12 11:25:00 Test Item Value Reference Range Interpretation Comments Monocytes (test code = Monocytes) 12.4 2.0-12.0 [place] [address]-09-12 11:25:00 Test Item Value Reference Range Interpretation Comments Eosinophils (test code = 5.6 See_Comment [A utomated message] The Eosinophils) system which ge nerated this result tra nsmitted reference range : <=4.0. The reference r patria was not used to int erpret this result as normal/abnormal . [place] [address]-09-12 11:25:00 Test Item Value Reference Range Interpretation Comments Basophils (test code = 1.2 See_Comment [Aut omated message] The Basophils) system which ge nerated this result tra nsmitted reference range : <=1.0. The reference r patria was not used to int erpret this result as normal/abnormal . [place] 519362-09-12 11:25:00 Test Item Value Reference Range Interpretation Comments Neutrophils # (test code = Neutrophils 2.3 1.5-8.1 #) [place] [address]-09-12 11:25:00 Test Item Value Reference Range Interpretation Comments Lymphocytes # (test code = Lymphocytes 1.8 1.0-5.5 #) [place] [address]-09-12 11:25:00 Test Item Value Reference Range Interpretation Comments Monocytes # (test code 0.6 See_Comment [Aut omated message] The = Monocytes #) system which generated this result tra nsmitted reference range : <=0.8. The reference r patria was not used to int erpret this result as normal/abnormal . [place] [address]-09-12 11:25:00 Test Item Value Reference Range Interpretation Comments Eosinophils # (test code 0.3 See_Comment [A utomated message] The = Eosinophils #) system [facility] h generated this result tra nsmitted reference range : <=0.5. The reference r patria was not used to int erpret this result as normal/abnormal . [facility] CenterStfsuooRWJBPKLOYT2981-99-88 11:25:00 Test Item Value Reference Range Interpretation Comments Basophils # (test code 0.1 See_Comment [Aut omated message] The = Basophils #) system which generated this result tra nsmitted reference range : <=0.2. The reference r patria was not used to int erpret this result as normal/abnormal . [facility] CenterIebhumeXKJUUBZPYK3262-25-02 11:25:00 Test Item Value Reference Range Interpretation Comments Macrocyte (test code = 1+ *ABN*(07/23/22 Macrocyte) 6:25 AM) [facility] CenterObxtivrCRICMMHJNJ4083-26-32 11:25:00 Test Item Value Reference Range Interpretation Comments WBC (test code = WBC) 5.0 3.7-10.4 [facility] CenterLxbwuqkFLRJBALJOB9010-38-90 11:25:00 Test Item Value Reference Range Interpretation Comments RBC (test code = RBC) 2.89 4.20-5.40 [facility] CenterAdjtjocCQCXSNNUVA4147-28-34 11:25:00 Test Item Value Reference Range Interpretation Comments Hgb (test code = Hgb) 10.2 12.0-16.0 [facility] CenterCfpotaxZRKVXUFNUB4829-85-77 11:25:00 Test Item Value Reference Range Interpretation Comments Hct (test code = Hct) 29.4 36.0-48.0 [facility] CenterHxonongCKBUWTDEZT0963-61-02 11:25:00 Test Item Value Reference Range Interpretation Comments MCV (test code = MCV) 101.8 80.0-98.0 [facility] CenterPzqbvusQPZMCNDMML0380-06-91 11:25:00 Test Item Value Reference Range Interpretation Comments MCH (test code = MCH) 35.3 pg 27.0-31.0 [facility] CenterHrfkpjbQRRDFWYGHO9298-84-03 11:25:00 Test Item Value Reference Range Interpretation Comments MCHC (test code = MCHC) 34.7 32.0-36.0 [place] 519362-09-12 11:25:00 Test Item Value Reference Range Interpretation Comments RDW (test code = RDW) 14.9 11.5-14.5 [place] 519362-09-12 11:25:00 Test Item Value Reference Range Interpretation Comments Platelet (test code = Platelet) 252 133-450 [facility] ServicesQwvyngzBKDXFLGZDF8723-20-09 11:25:00 Test Item Value Reference Range Interpretation Comments MPV (test code = MPV) 7.2 7.4-10.4 [facility] HospitalCcwbzqjPOGMTDJSKJ8676-38-31 11:25:00 Test Item Value Reference Range Interpretation Comments Prealbumin (test code = Prealbumin) 16.7 18.0-45.0 [facility] HospitalWmrneegCQBGMW8972-27-73 11:25:00 Test Item Value Reference Range Interpretation Comments Trig (test code = Trig) 44 [facility] HospitalSppvcjwWXGPYE2524-94-11 11:25:00 Test Item Value Reference Range Interpretation Comments Chol (test code = Chol) 129 [facility] HospitalTbpxblxFBJOYP1908-38-59 11:25:00 Test Item Value Reference Range Interpretation Comments HDL (test code = HDL) 74 [facility]CzzwqjuEEVSEY5816-01-69 11:25:00 Test Item Value Reference Range Interpretation Comments CHD Risk (test code = CHD Risk) 1.74 1 3.90-5.80 [facility] HospitalHvqhjeoWMSSVA6596-84-81 11:25:00 Test Item Value Reference Range Interpretation Comments LDL (Calculated) (test code = LDL 46 (Calculated)) [facility] HospitalBosdipuEAJQRN6144-12-20 11:25:00 Test Item Value Reference Range Interpretation Comments VLDL (test code = VLDL) 9 1 [facility] ORYGHDXYD9854-88-45 11:25:00 Test Item Value Reference Range Interpretation Comments Hgb A1C (test code = Hgb A1C) 4.8 [facility]In[facility] HHLVT4377-91-38 11:25:00 Test Item Value Reference Range Interpretation Comments Glucose Lvl (test code = Glucose Lvl) 82 70-99 [facility]2022-09-12 11:25:00 Test Item Value Reference Range Interpretation Comments BUN (test code = BUN) 41 7-22 [facility] QODBU3629-56-14 11:25:00 Test Item Value Reference Range Interpretation Comments Creatinine Lvl (test code = Creatinine 1.33 0.50-1.40 Lvl) [facility]2022-09-12 11:25:00 Test Item Value Reference Range Interpretation Comments Sodium Lvl (test code = Sodium Lvl) 132 135-145 [facility] JZYQI7659-89-36 11:25:00 Test Item Value Reference Range Interpretation Comments Potassium Lvl (test code = Potassium 5.1 3.5-5.1 Lvl) [place] 542562-09-12 11:25:00 Test Item Value Reference Range Interpretation Comments Chloride Lvl (test code = Chloride Lvl) 100 95-109 [place] 542562-09-12 11:25:00 Test Item Value Reference Range Interpretation Comments CO2 (test code = CO2) 24 24-32 [place] 542562-09-12 11:25:00 Test Item Value Reference Range Interpretation Comments Calcium Lvl (test code = Calcium Lvl) 8.9 8.5-10.5 [place] 542562-09-12 11:25:00 Test Item Value Reference Range Interpretation Comments Total Protein (test code = Total 6.9 6.4-8.4 Protein) [place] 542562-09-12 11:25:00 Test Item Value Reference Range Interpretation Comments Albumin Lvl (test code = Albumin Lvl) 3.1 3.5-5.0 [place] 542562-09-12 11:25:00 Test Item Value Reference Range Interpretation Comments ALT (test code = ALT) 50 See_Comment [Auto mated message] The system which ge nerated this result transmit rosendo reference range : <=65. The reference range was not used to interpr et this result as josi l/abnormal. [place] 542562-09-12 11:25:00 Test Item Value Reference Range Interpretation Comments AST (test code = AST) 45 See_Comment [Auto mated message] The system which ge nerated this result transmit rosendo reference range : <=37. The reference range was not used to interpr et this result as josi l/abnormal. [place] 542562-09-12 11:25:00 Test Item Value Reference Range Interpretation Comments Alk Phos (test code = Alk Phos) 127 39-136 [place] 542562-09-12 11:25:00 Test Item Value Reference Range Interpretation Comments Bili Total (test code = Bili Total) 0.4 0.2-1.3 [place] [address]-09-12 11:25:00 Test Item Value Reference Range Interpretation Comments AGAP (test code = AGAP) 13.1 10.0-20.0 [place] [address]-09-12 11:25:00 Test Item Value Reference Range Interpretation Comments B/C Ratio (test code = B/C Ratio) 31 1 6-25 [place] [address]-09-12 11:25:00 Test Item Value Reference Range Interpretation Comments Globulin (test code = Globulin) 3.8 2.7-4.2 [place] 542562-09-12 11:25:00 Test Item Value Reference Range Interpretation Comments A/G Ratio (test code = A/G Ratio) 0.8 1 0.7-1.6 [place] [address]-09-12 11:25:00 Test Item Value Reference Range Interpretation Comments eGFR (test code = eGFR) 40 [place] 542562-09-12 11:25:00 Test Item Value Reference Range Interpretation Comments Phosphorus (test code = Phosphorus) 4.2 2.5-4.5 [place] 542562-09-12 11:25:00 Test Item Value Reference Range Interpretation Comments Magnesium Lvl (test code = Magnesium 2.4 1.8-2.4 Lvl) [place] [address]-09-12 11:25:00 Test Item Value Reference Range Interpretation Comments Vitamin D, 25-OH, Total (test code = 46 Vitamin D, 25-OH, Total) [place] [address]-09-12 11:25:00 Test Item Value Reference Range Interpretation Comments Segs (test code = Segs) 46.0 45.0-75.0 [place] [address]-09-12 11:25:00 Test Item Value Reference Range Interpretation Comments Lymphocytes (test code = Lymphocytes) 34.8 20.0-40.0 [place] [address]-09-12 11:25:00 Test Item Value Reference Range Interpretation Comments Monocytes (test code = Monocytes) 12.4 2.0-12.0 [place] [address]-09-12 11:25:00 Test Item Value Reference Range Interpretation Comments Eosinophils (test code = 5.6 See_Comment [A utomated message] The Eosinophils) system which ge nerated this result tra nsmitted reference range : <=4.0. The reference r patria was not used to int erpret this result as normal/abnormal . [place] 519362-09-12 11:25:00 Test Item Value Reference Range Interpretation Comments Basophils (test code = 1.2 See_Comment [Aut omated message] The Basophils) system which ge nerated this result tra nsmitted reference range : <=1.0. The reference r patria was not used to int erpret this result as normal/abnormal . [place] 519362-09-12 11:25:00 Test Item Value Reference Range Interpretation Comments Neutrophils # (test code = Neutrophils 2.3 1.5-8.1 #) [facility]ZsrhbomMXDWOPLMPR7136-92-50 11:25:00 Test Item Value Reference Range Interpretation Comments Lymphocytes # (test code = Lymphocytes 1.8 1.0-5.5 #) [facility] CenterKorotfmWCZQDFQWDE4769-20-02 11:25:00 Test Item Value Reference Range Interpretation Comments Monocytes # (test code 0.6 See_Comment [Aut omated message] The = Monocytes #) system which generated this result tra nsmitted reference range : <=0.8. The reference r patria was not used to int erpret this result as normal/abnormal . [facility] CenterLikilhiRBEYITFCYF4330-08-41 11:25:00 Test Item Value Reference Range Interpretation Comments Eosinophils # (test code 0.3 See_Comment [A utomated message] The = Eosinophils #) system whic h generated this result tra nsmitted reference range : <=0.5. The reference r patria was not used to int erpret this result as normal/abnormal . [place] 519362-09-12 11:25:00 Test Item Value Reference Range Interpretation Comments Basophils # (test code 0.1 See_Comment [Aut omated message] The = Basophils #) system which generated this result tra nsmitted reference range : <=0.2. The reference r patria was not used to int erpret this result as normal/abnormal . [place] 519362-09-12 11:25:00 Test Item Value Reference Range Interpretation Comments Macrocyte (test code = 1+ *ABN*(07/23/22 Macrocyte) 6:25 AM) [place] 519362-09-12 11:25:00 Test Item Value Reference Range Interpretation Comments WBC (test code = WBC) 5.0 3.7-10.4 [place] 519362-09-12 11:25:00 Test Item Value Reference Range Interpretation Comments RBC (test code = RBC) 2.89 4.20-5.40 [facility]PpporjvHBZLYARFFG9447-74-49 11:25:00 Test Item Value Reference Range Interpretation Comments Hgb (test code = Hgb) 10.2 12.0-16.0 [facility] CenterCqjrrztRADGCXPTNN7428-79-54 11:25:00 Test Item Value Reference Range Interpretation Comments Hct (test code = Hct) 29.4 36.0-48.0 [facility] CenterGhqnmjwXMTSABZLXA1495-32-95 11:25:00 Test Item Value Reference Range Interpretation Comments MCV (test code = MCV) 101.8 80.0-98.0 [facility] CenterBayyipkIUKPZKUCHY4952-80-57 11:25:00 Test Item Value Reference Range Interpretation Comments MCH (test code = MCH) 35.3 pg 27.0-31.0 [facility] CenterYdszyrjDZRJGFDBAB5973-85-20 11:25:00 Test Item Value Reference Range Interpretation Comments MCHC (test code = MCHC) 34.7 32.0-36.0 [facility] CenterBzbbvgjNJCGITRQKW5798-78-56 11:25:00 Test Item Value Reference Range Interpretation Comments RDW (test code = RDW) 14.9 11.5-14.5 [facility] CenterSzogwxnWQXSBNCEIP4726-38-99 11:25:00 Test Item Value Reference Range Interpretation Comments Platelet (test code = Platelet) 252 133-450 [facility] CenterKyrmujnLPAZEGIWJQ0267-37-80 11:25:00 Test Item Value Reference Range Interpretation Comments MPV (test code = MPV) 7.2 7.4-10.4 [facility] HospitalYkhzoreZKGBNWRYSR2238-52-75 11:25:00 Test Item Value Reference Range Interpretation Comments Prealbumin (test code = Prealbumin) 16.7 18.0-45.0 [facility] HospitalJvkjsjoLCSFOZ8308-78-17 11:25:00 Test Item Value Reference Range Interpretation Comments Trig (test code = Trig) 44 [facility] CenterQuutuwoSFKNTR6778-13-66 11:25:00 Test Item Value Reference Range Interpretation Comments Chol (test code = Chol) 129 [facility] CenterElbjrprOSVJSM5394-17-92 11:25:00 Test Item Value Reference Range Interpretation Comments HDL (test code = HDL) 74 [facility] CenterUjcjdubVUVRWA4085-81-93 11:25:00 Test Item Value Reference Range Interpretation Comments CHD Risk (test code = CHD Risk) 1.74 1 3.90-5.80 [facility] HospitalVtixxysAEQGHG8475-23-13 11:25:00 Test Item Value Reference Range Interpretation Comments LDL (Calculated) (test code = LDL 46 (Calculated)) [facility] HospitalAdgcliqCBTTEW5222-26-85 11:25:00 Test Item Value Reference Range Interpretation Comments VLDL (test code = VLDL) 9 1 [facility] RAYVOYDBL9096-83-58 11:25:00 Test Item Value Reference Range Interpretation Comments Hgb A1C (test code = Hgb A1C) 4.8 [facility] WNQIR0707-08-47 11:25:00 Test Item Value Reference Range Interpretation Comments Glucose Lvl (test code = Glucose Lvl) 82 70-99 [facility]2022-09-12 11:25:00 Test Item Value Reference Range Interpretation Comments BUN (test code = BUN) 41 7-22 [facility]2022-09-12 11:25:00 Test Item Value Reference Range Interpretation Comments Creatinine Lvl (test code = Creatinine 1.33 0.50-1.40 Lvl) [facility]2022-09-12 11:25:00 Test Item Value Reference Range Interpretation Comments Sodium Lvl (test code = Sodium Lvl) 132 135-145 [facility]2022-09-12 11:25:00 Test Item Value Reference Range Interpretation Comments Potassium Lvl (test code = Potassium 5.1 3.5-5.1 Lvl) [facility]2022-09-12 11:25:00 Test Item Value Reference Range Interpretation Comments Chloride Lvl (test code = Chloride Lvl) 100 95-109 [facility]2022-09-12 11:25:00 Test Item Value Reference Range Interpretation Comments CO2 (test code = CO2) 24 24-32 [facility] [facility]2022-09-12 11:25:00 Test Item Value Reference Range Interpretation Comments Calcium Lvl (test code = Calcium Lvl) 8.9 8.5-10.5 [facility]2022-09-12 11:25:00 Test Item Value Reference Range Interpretation Comments Total Protein (test code = Total 6.9 6.4-8.4 Protein) [place] 542562-09-12 11:25:00 Test Item Value Reference Range Interpretation Comments Albumin Lvl (test code = Albumin Lvl) 3.1 3.5-5.0 [place] 542562-09-12 11:25:00 Test Item Value Reference Range Interpretation Comments ALT (test code = ALT) 50 See_Comment [Auto mated message] The system which ge nerated this result transmit rosendo reference range : <=65. The reference range was not used to interpr et this result as josi l/abnormal. [place] 542562-09-12 11:25:00 Test Item Value Reference Range Interpretation Comments AST (test code = AST) 45 See_Comment [Auto mated message] The system which ge nerated this result transmit rosendo reference range : <=37. The reference range was not used to interpr et this result as josi l/abnormal. [place] 542562-09-12 11:25:00 Test Item Value Reference Range Interpretation Comments Alk Phos (test code = Alk Phos) 127 39-136 [place] 542562-09-12 11:25:00 Test Item Value Reference Range Interpretation Comments Bili Total (test code = Bili Total) 0.4 0.2-1.3 [place] 542562-09-12 11:25:00 Test Item Value Reference Range Interpretation Comments AGAP (test code = AGAP) 13.1 10.0-20.0 [place] [address]-09-12 11:25:00 Test Item Value Reference Range Interpretation Comments B/C Ratio (test code = B/C Ratio) 31 1 6-25 [place] [address]-09-12 11:25:00 Test Item Value Reference Range Interpretation Comments Globulin (test code = Globulin) 3.8 2.7-4.2 [place] 542562-09-12 11:25:00 Test Item Value Reference Range Interpretation Comments A/G Ratio (test code = A/G Ratio) 0.8 1 0.7-1.6 [place] [address]-09-12 11:25:00 Test Item Value Reference Range Interpretation Comments eGFR (test code = eGFR) 40 [place] 542562-09-12 11:25:00 Test Item Value Reference Range Interpretation Comments Phosphorus (test code = Phosphorus) 4.2 2.5-4.5 [place] 542562-09-12 11:25:00 Test Item Value Reference Range Interpretation Comments Magnesium Lvl (test code = Magnesium 2.4 1.8-2.4 Lvl) [place] 542562-09-12 11:25:00 Test Item Value Reference Range Interpretation Comments Vitamin D, 25-OH, Total (test code = 46 Vitamin D, 25-OH, Total) [place] [address]-09-12 11:25:00 Test Item Value Reference Range Interpretation Comments Segs (test code = Segs) 46.0 45.0-75.0 [place] [address]-09-12 11:25:00 Test Item Value Reference Range Interpretation Comments Lymphocytes (test code = Lymphocytes) 34.8 20.0-40.0 [place] [address]-09-12 11:25:00 Test Item Value Reference Range Interpretation Comments Monocytes (test code = Monocytes) 12.4 2.0-12.0 [place] [address]-09-12 11:25:00 Test Item Value Reference Range Interpretation Comments Eosinophils (test code = 5.6 See_Comment [A utomated message] The Eosinophils) system which ge nerated this result tra nsmitted reference range : <=4.0. The reference r patria was not used to int erpret this result as normal/abnormal . [place] [address]-09-12 11:25:00 Test Item Value Reference Range Interpretation Comments Basophils (test code = 1.2 See_Comment [Aut omated message] The Basophils) system which ge nerated this result tra nsmitted reference range : <=1.0. The reference r patria was not used to int erpret this result as normal/abnormal . [place] 519362-09-12 11:25:00 Test Item Value Reference Range Interpretation Comments Neutrophils # (test code = Neutrophils 2.3 1.5-8.1 #) [place] [address]-09-12 11:25:00 Test Item Value Reference Range Interpretation Comments Lymphocytes # (test code = Lymphocytes 1.8 1.0-5.5 #) [place] [address]-09-12 11:25:00 Test Item Value Reference Range Interpretation Comments Monocytes # (test code 0.6 See_Comment [Aut omated message] The = Monocytes #) system which generated this result tra nsmitted reference range : <=0.8. The reference r patria was not used to int erpret this result as normal/abnormal . [facility]644[facility] 11:25:00 Test Item Value Reference Range Interpretation Comments Eosinophils # (test code 0.3 See_Comment [A utomated message] The = Eosinophils #) system whic h generated this result tra nsmitted reference range : <=0.5. The reference r patria was not used to int erpret this result as normal/abnormal . [facility]OafavblOPMMBTRVNE7214-81-71 11:25:00 Test Item Value Reference Range Interpretation Comments Basophils # (test code 0.1 See_Comment [Aut omated message] The = Basophils #) system which generated this result tra nsmitted reference range : <=0.2. The reference r patria was not used to int erpret this result as normal/abnormal . [facility]CvnazzpYGBLSMQOZI6499-70-08 11:25:00 Test Item Value Reference Range Interpretation Comments Macrocyte (test code = 1+ *ABN*(07/23/22 Macrocyte) 6:25 AM) [place] 519362-09-12 11:25:00 Test Item Value Reference Range Interpretation Comments WBC (test code = WBC) 5.0 3.7-10.4 [place] 519362-09-12 11:25:00 Test Item Value Reference Range Interpretation Comments RBC (test code = RBC) 2.89 4.20-5.40 [place] 519362-09-12 11:25:00 Test Item Value Reference Range Interpretation Comments Hgb (test code = Hgb) 10.2 12.0-16.0 [place] [address]-09-12 11:25:00 Test Item Value Reference Range Interpretation Comments Hct (test code = Hct) 29.4 36.0-48.0 [place] 519362-09-12 11:25:00 Test Item Value Reference Range Interpretation Comments MCV (test code = MCV) 101.8 80.0-98.0 [place] 519362-09-12 11:25:00 Test Item Value Reference Range Interpretation Comments MCH (test code = MCH) 35.3 pg 27.0-31.0 [facility]ixilttBXOUMJYQUY3290-08-94 11:25:00 Test Item Value Reference Range Interpretation Comments MCHC (test code = MCHC) 34.7 32.0-36.0 [facility] ServicesJkrkgizNWIASLCEVU8378-96-93 11:25:00 Test Item Value Reference Range Interpretation Comments RDW (test code = RDW) 14.9 11.5-14.5 [facility] ServicesHypmqpgNHYTOUFDYL6776-86-32 11:25:00 Test Item Value Reference Range Interpretation Comments Platelet (test code = Platelet) 252 133-450 [facility]MwpkdqyTGXRKMXIMI8554-91-97 11:25:00 Test Item Value Reference Range Interpretation Comments MPV (test code = MPV) 7.2 7.4-10.4 [facility] HospitalPwbjwwpTTJELWSAMB0224-56-83 11:25:00 Test Item Value Reference Range Interpretation Comments Prealbumin (test code = Prealbumin) 16.7 18.0-45.0 [facility] HospitalCcwgdtfJHBNLY0573-16-48 11:25:00 Test Item Value Reference Range Interpretation Comments Trig (test code = Trig) 44 [facility] HospitalQogbqxuIUMIVY2989-99-49 11:25:00 Test Item Value Reference Range Interpretation Comments Chol (test code = Chol) 129 [facility] HospitalLtctvqbTINPGL4585-78-15 11:25:00 Test Item Value Reference Range Interpretation Comments HDL (test code = HDL) 74 [facility] HospitalOkhzfdlKCEMYI4021-90-23 11:25:00 Test Item Value Reference Range Interpretation Comments CHD Risk (test code = CHD Risk) 1.74 1 3.90-5.80 [facility] HospitalFzcyazqWBZIND7200-62-37 11:25:00 Test Item Value Reference Range Interpretation Comments LDL (Calculated) (test code = LDL 46 (Calculated)) [facility] HospitalBhthsxvEVSFIS8789-95-30 11:25:00 Test Item Value Reference Range Interpretation Comments VLDL (test code = VLDL) 9 1 [facility] UVMXFGESX4866-24-08 11:25:00 Test Item Value Reference Range Interpretation Comments Hgb A1C (test code = Hgb A1C) 4.8 [facility]In[facility] EBOOI6121-16-36 11:25:00 Test Item Value Reference Range Interpretation Comments Glucose Lvl (test code = Glucose Lvl) 82 70-99 [facility] 19465GJPAQ9473-72-51 11:25:00 Test Item Value Reference Range Interpretation Comments BUN (test code = BUN) 41 7-22 [place] [address]-09-12 11:25:00 Test Item Value Reference Range Interpretation Comments Creatinine Lvl (test code = Creatinine 1.33 0.50-1.40 Lvl) [place] [address]-09-12 11:25:00 Test Item Value Reference Range Interpretation Comments Sodium Lvl (test code = Sodium Lvl) 132 135-145 [place] [address]-09-12 11:25:00 Test Item Value Reference Range Interpretation Comments Potassium Lvl (test code = Potassium 5.1 3.5-5.1 Lvl) [place] [address]-09-12 11:25:00 Test Item Value Reference Range Interpretation Comments Chloride Lvl (test code = Chloride Lvl) 100 95-109 [place] [address]-09-12 11:25:00 Test Item Value Reference Range Interpretation Comments CO2 (test code = CO2) 24 24-32 [place] [address]-09-12 11:25:00 Test Item Value Reference Range Interpretation Comments Calcium Lvl (test code = Calcium Lvl) 8.9 8.5-10.5 [place] [address]-09-12 11:25:00 Test Item Value Reference Range Interpretation Comments Total Protein (test code = Total 6.9 6.4-8.4 Protein) [place] [address]-09-12 11:25:00 Test Item Value Reference Range Interpretation Comments Albumin Lvl (test code = Albumin Lvl) 3.1 3.5-5.0 [place] [address]-09-12 11:25:00 Test Item Value Reference Range Interpretation Comments ALT (test code = ALT) 50 See_Comment [Auto mated message] The system which ge nerated this result transmit rosendo reference range : <=65. The reference range was not used to interpr et this result as josi l/abnormal. [place] [address]-09-12 11:25:00 Test Item Value Reference Range Interpretation Comments AST (test code = AST) 45 See_Comment [Auto mated message] The system which ge nerated this result transmit rosendo reference range : <=37. The reference range was not used to interpr et this result as josi l/abnormal. [facility]2022-09-12 11:25:00 Test Item Value Reference Range Interpretation Comments Alk Phos (test code = Alk Phos) 127 39-136 [place] 542562-09-12 11:25:00 Test Item Value Reference Range Interpretation Comments Bili Total (test code = Bili Total) 0.4 0.2-1.3 [place] 542562-09-12 11:25:00 Test Item Value Reference Range Interpretation Comments AGAP (test code = AGAP) 13.1 10.0-20.0 [place] 542562-09-12 11:25:00 Test Item Value Reference Range Interpretation Comments B/C Ratio (test code = B/C Ratio) 31 1 6-25 [place] 542562-09-12 11:25:00 Test Item Value Reference Range Interpretation Comments Globulin (test code = Globulin) 3.8 2.7-4.2 [place] 542562-09-12 11:25:00 Test Item Value Reference Range Interpretation Comments A/G Ratio (test code = A/G Ratio) 0.8 1 0.7-1.6 [place] 542562-09-12 11:25:00 Test Item Value Reference Range Interpretation Comments eGFR (test code = eGFR) 40 [facility]2022-09-12 11:25:00 Test Item Value Reference Range Interpretation Comments Phosphorus (test code = Phosphorus) 4.2 2.5-4.5 [place] 542562-09-12 11:25:00 Test Item Value Reference Range Interpretation Comments Magnesium Lvl (test code = Magnesium 2.4 1.8-2.4 Lvl) [facility]2022-09-12 11:25:00 Test Item Value Reference Range Interpretation Comments Vitamin D, 25-OH, Total (test code = 46 Vitamin D, 25-OH, Total) [place] 519362-09-12 11:25:00 Test Item Value Reference Range Interpretation Comments Segs (test code = Segs) 46.0 45.0-75.0 [place] 519362-09-12 11:25:00 Test Item Value Reference Range Interpretation Comments Lymphocytes (test code = Lymphocytes) 34.8 20.0-40.0 [place] [address]-09-12 11:25:00 Test Item Value Reference Range Interpretation Comments Monocytes (test code = Monocytes) 12.4 2.0-12.0 [place] [address]-09-12 11:25:00 Test Item Value Reference Range Interpretation Comments Eosinophils (test code = 5.6 See_Comment [A utomated message] The Eosinophils) system which ge nerated this result tra nsmitted reference range : <=4.0. The reference r patria was not used to int erpret this result as normal/abnormal . [place] [address]-09-12 11:25:00 Test Item Value Reference Range Interpretation Comments Basophils (test code = 1.2 See_Comment [Aut omated message] The Basophils) system which ge nerated this result tra nsmitted reference range : <=1.0. The reference r patria was not used to int erpret this result as normal/abnormal . [place] [address]-09-12 11:25:00 Test Item Value Reference Range Interpretation Comments Neutrophils # (test code = Neutrophils 2.3 1.5-8.1 #) [place] [address]-09-12 11:25:00 Test Item Value Reference Range Interpretation Comments Lymphocytes # (test code = Lymphocytes 1.8 1.0-5.5 #) [place] [address]-09-12 11:25:00 Test Item Value Reference Range Interpretation Comments Monocytes # (test code 0.6 See_Comment [Aut omated message] The = Monocytes #) system which generated this result tra nsmitted reference range : <=0.8. The reference r patria was not used to int erpret this result as normal/abnormal . [place] [address]-09-12 11:25:00 Test Item Value Reference Range Interpretation Comments Eosinophils # (test code 0.3 See_Comment [A utomated message] The = Eosinophils #) system whic h generated this result tra nsmitted reference range : <=0.5. The reference r patria was not used to int erpret this result as normal/abnormal . [place] [address]-09-12 11:25:00 Test Item Value Reference Range Interpretation Comments Basophils # (test code 0.1 See_Comment [Aut omated message] The = Basophils #) system which generated this result tra nsmitted reference range : <=0.2. The reference r patria was not used to int erpret this result as normal/abnormal . [facility] CenterCqrvaklOMWLPSAGFE6262-98-86 11:25:00 Test Item Value Reference Range Interpretation Comments Macrocyte (test code = 1+ *ABN*(07/23/22 Macrocyte) 6:25 AM) [facility] CenterZozzztcATJQOYOCNV0755-70-07 11:25:00 Test Item Value Reference Range Interpretation Comments WBC (test code = WBC) 5.0 3.7-10.4 [facility] CenterAoewxbtEBHVFQKAQQ5151-43-24 11:25:00 Test Item Value Reference Range Interpretation Comments RBC (test code = RBC) 2.89 4.20-5.40 [facility] CenterMweoaqhRCRHDUJNCW0851-97-29 11:25:00 Test Item Value Reference Range Interpretation Comments Hgb (test code = Hgb) 10.2 12.0-16.0 [facility] CenterFjkwnddKWPUKTUYVP2168-93-61 11:25:00 Test Item Value Reference Range Interpretation Comments Hct (test code = Hct) 29.4 36.0-48.0 [facility] CenterMqrytsqMUQAQMIRMC0713-22-19 11:25:00 Test Item Value Reference Range Interpretation Comments MCV (test code = MCV) 101.8 80.0-98.0 [facility] CenterAlycihnUCHUANSKRK0504-06-30 11:25:00 Test Item Value Reference Range Interpretation Comments MCH (test code = MCH) 35.3 pg 27.0-31.0 [facility] CenterFhbdahiDJCKEEKRAR0065-03-42 11:25:00 Test Item Value Reference Range Interpretation Comments MCHC (test code = MCHC) 34.7 32.0-36.0 [facility] CenterJhfsqsoQFMQJSAOVN7947-27-42 11:25:00 Test Item Value Reference Range Interpretation Comments RDW (test code = RDW) 14.9 11.5-14.5 [facility] CenterZiwkzxcPKVNGCPQXK4697-76-70 11:25:00 Test Item Value Reference Range Interpretation Comments Platelet (test code = Platelet) 252 133-450 [facility] CenterJrhdrxyGOHSVWLOYA1305-97-79 11:25:00 Test Item Value Reference Range Interpretation Comments MPV (test code = MPV) 7.2 7.4-10.4 [facility] HospitalPzvynyfDNGWNBPIIV9870-27-35 11:25:00 Test Item Value Reference Range Interpretation Comments Prealbumin (test code = Prealbumin) 16.7 18.0-45.0 [facility] HospitalLrtezdrFGITIC9768-50-09 11:25:00 Test Item Value Reference Range Interpretation Comments Trig (test code = Trig) 44 [facility] HospitalOwcgipqZBFDXK9606-40-46 11:25:00 Test Item Value Reference Range Interpretation Comments Chol (test code = Chol) 129 [facility] HospitalDpvgesuIODTKP0183-82-56 11:25:00 Test Item Value Reference Range Interpretation Comments HDL (test code = HDL) 74 [facility] HospitalXggoltfJKRIYV8476-50-77 11:25:00 Test Item Value Reference Range Interpretation Comments CHD Risk (test code = CHD Risk) 1.74 1 3.90-5.80 [facility] HospitalDletyzcPTUSRF8356-89-70 11:25:00 Test Item Value Reference Range Interpretation Comments LDL (Calculated) (test code = LDL 46 (Calculated)) [facility]OlivcbsPXWWLG4054-21-53 11:25:00 Test Item Value Reference Range Interpretation Comments VLDL (test code = VLDL) 9 1 [facility] WJLCYYHHO2916-71-36 11:25:00 Test Item Value Reference Range Interpretation Comments Hgb A1C (test code = Hgb A1C) 4.8 [facility] GLHOF6145-59-28 11:25:00 Test Item Value Reference Range Interpretation Comments Glucose Lvl (test code = Glucose Lvl) 82 70-99 [facility]2022-09-12 11:25:00 Test Item Value Reference Range Interpretation Comments BUN (test code = BUN) 41 7-22 [facility]2022-09-12 11:25:00 Test Item Value Reference Range Interpretation Comments Creatinine Lvl (test code = Creatinine 1.33 0.50-1.40 Lvl) [facility]2022-09-12 11:25:00 Test Item Value Reference Range Interpretation Comments Sodium Lvl (test code = Sodium Lvl) 132 135-145 [facility]2022-09-12 11:25:00 Test Item Value Reference Range Interpretation Comments Potassium Lvl (test code = Potassium 5.1 3.5-5.1 Lvl) [facility]2022-09-12 11:25:00 Test Item Value Reference Range Interpretation Comments Chloride Lvl (test code = Chloride Lvl) 100 95-109 [place] 542562-09-12 11:25:00 Test Item Value Reference Range Interpretation Comments CO2 (test code = CO2) 24 24-32 [place] 542562-09-12 11:25:00 Test Item Value Reference Range Interpretation Comments Calcium Lvl (test code = Calcium Lvl) 8.9 8.5-10.5 [place] 542562-09-12 11:25:00 Test Item Value Reference Range Interpretation Comments Total Protein (test code = Total 6.9 6.4-8.4 Protein) [place] 542562-09-12 11:25:00 Test Item Value Reference Range Interpretation Comments Albumin Lvl (test code = Albumin Lvl) 3.1 3.5-5.0 [place] 542562-09-12 11:25:00 Test Item Value Reference Range Interpretation Comments ALT (test code = ALT) 50 See_Comment [Auto mated message] The system which ge nerated this result transmit rosendo reference range : <=65. The reference range was not used to interpr et this result as josi l/abnormal. [place] 542562-09-12 11:25:00 Test Item Value Reference Range Interpretation Comments AST (test code = AST) 45 See_Comment [Auto mated message] The system which ge nerated this result transmit rosendo reference range : <=37. The reference range was not used to interpr et this result as josi l/abnormal. [place] 542562-09-12 11:25:00 Test Item Value Reference Range Interpretation Comments Alk Phos (test code = Alk Phos) 127 39-136 [place] 542562-09-12 11:25:00 Test Item Value Reference Range Interpretation Comments Bili Total (test code = Bili Total) 0.4 0.2-1.3 [place] [address]-09-12 11:25:00 Test Item Value Reference Range Interpretation Comments AGAP (test code = AGAP) 13.1 10.0-20.0 [place] [address]-09-12 11:25:00 Test Item Value Reference Range Interpretation Comments B/C Ratio (test code = B/C Ratio) 31 1 6-25 [place] [address]-09-12 11:25:00 Test Item Value Reference Range Interpretation Comments Globulin (test code = Globulin) 3.8 2.7-4.2 [place] [address]-09-12 11:25:00 Test Item Value Reference Range Interpretation Comments A/G Ratio (test code = A/G Ratio) 0.8 1 0.7-1.6 [place] [address]-09-12 11:25:00 Test Item Value Reference Range Interpretation Comments eGFR (test code = eGFR) 40 [place] [address]-09-12 11:25:00 Test Item Value Reference Range Interpretation Comments Phosphorus (test code = Phosphorus) 4.2 2.5-4.5 [place] [address]-09-12 11:25:00 Test Item Value Reference Range Interpretation Comments Magnesium Lvl (test code = Magnesium 2.4 1.8-2.4 Lvl) [place] [address]-09-12 11:25:00 Test Item Value Reference Range Interpretation Comments Vitamin D, 25-OH, Total (test code = 46 Vitamin D, 25-OH, Total) [place] [address]-09-12 11:25:00 Test Item Value Reference Range Interpretation Comments Segs (test code = Segs) 46.0 45.0-75.0 [place] [address]-09-12 11:25:00 Test Item Value Reference Range Interpretation Comments Lymphocytes (test code = Lymphocytes) 34.8 20.0-40.0 [place] [address]-09-12 11:25:00 Test Item Value Reference Range Interpretation Comments Monocytes (test code = Monocytes) 12.4 2.0-12.0 [place] [address]-09-12 11:25:00 Test Item Value Reference Range Interpretation Comments Eosinophils (test code = 5.6 See_Comment [A utomated message] The Eosinophils) system which ge nerated this result tra nsmitted reference range : <=4.0. The reference r patria was not used to int erpret this result as normal/abnormal . [place] [address]-09-12 11:25:00 Test Item Value Reference Range Interpretation Comments Basophils (test code = 1.2 See_Comment [Aut omated message] The Basophils) system which ge nerated this result tra nsmitted reference range : <=1.0. The reference r patria was not used to int erpret this result as normal/abnormal . [place] 519362-09-12 11:25:00 Test Item Value Reference Range Interpretation Comments Neutrophils # (test code = Neutrophils 2.3 1.5-8.1 #) [place] 519362-09-12 11:25:00 Test Item Value Reference Range Interpretation Comments Lymphocytes # (test code = Lymphocytes 1.8 1.0-5.5 #) [place] 519362-09-12 11:25:00 Test Item Value Reference Range Interpretation Comments Monocytes # (test code 0.6 See_Comment [Aut omated message] The = Monocytes #) system which generated this result tra nsmitted reference range : <=0.8. The reference r patria was not used to int erpret this result as normal/abnormal . [place] 519362-09-12 11:25:00 Test Item Value Reference Range Interpretation Comments Eosinophils # (test code 0.3 See_Comment [A utomated message] The = Eosinophils #) system whic h generated this result tra nsmitted reference range : <=0.5. The reference r patria was not used to int erpret this result as normal/abnormal . [place] 519362-09-12 11:25:00 Test Item Value Reference Range Interpretation Comments Basophils # (test code 0.1 See_Comment [Aut omated message] The = Basophils #) system which generated this result tra nsmitted reference range : <=0.2. The reference r patria was not used to int erpret this result as normal/abnormal . [place] 519362-09-12 11:25:00 Test Item Value Reference Range Interpretation Comments Macrocyte (test code = 1+ *ABN*(07/23/22 Macrocyte) 6:25 AM) [place] [address]-09-12 11:25:00 Test Item Value Reference Range Interpretation Comments WBC (test code = WBC) 5.0 3.7-10.4 [place] 519362-09-12 11:25:00 Test Item Value Reference Range Interpretation Comments RBC (test code = RBC) 2.89 4.20-5.40 [place] 519362-09-12 11:25:00 Test Item Value Reference Range Interpretation Comments Hgb (test code = Hgb) 10.2 12.0-16.0 [facility]OkjlnpcUZBAXQTWAB8195-09-88 11:25:00 Test Item Value Reference Range Interpretation Comments Hct (test code = Hct) 29.4 36.0-48.0 [facility] ServicesUcyqyazSGSQEEMNAH9631-85-14 11:25:00 Test Item Value Reference Range Interpretation Comments MCV (test code = MCV) 101.8 80.0-98.0 [facility] ServicesUarvvxhJKNPGBAFKW4844-96-62 11:25:00 Test Item Value Reference Range Interpretation Comments MCH (test code = MCH) 35.3 pg 27.0-31.0 [facility] ServicesZqwhynfVQCPJLBQTC5600-93-97 11:25:00 Test Item Value Reference Range Interpretation Comments MCHC (test code = MCHC) 34.7 32.0-36.0 [facility] ServicesGjumszmMCOXCCNSCE6795-58-78 11:25:00 Test Item Value Reference Range Interpretation Comments RDW (test code = RDW) 14.9 11.5-14.5 [facility] ServicesKuiexwfQDNUOCLLRE6040-57-02 11:25:00 Test Item Value Reference Range Interpretation Comments Platelet (test code = Platelet) 252 133-450 [facility] ServicesZpehmvkFAZIMTHRST9977-29-39 11:25:00 Test Item Value Reference Range Interpretation Comments MPV (test code = MPV) 7.2 7.4-10.4 [facility]MzhqwtbDBBHEITWXS8923-80-75 11:25:00 Test Item Value Reference Range Interpretation Comments Prealbumin (test code = Prealbumin) 16.7 18.0-45.0 [facility]ViwmthzAISKVT7240-37-33 11:25:00 Test Item Value Reference Range Interpretation Comments Trig (test code = Trig) 44 [facility] HospitalDuyiroyPOEFAC0626-72-02 11:25:00 Test Item Value Reference Range Interpretation Comments Chol (test code = Chol) 129 [facility] HospitalOsuiexwDBHRHA6789-91-98 11:25:00 Test Item Value Reference Range Interpretation Comments HDL (test code = HDL) 74 [facility] HospitalYcorpblWTHSCV9966-80-73 11:25:00 Test Item Value Reference Range Interpretation Comments CHD Risk (test code = CHD Risk) 1.74 1 3.90-5.80 [facility] HospitalBwvoukxTWTTUP1814-45-78 11:25:00 Test Item Value Reference Range Interpretation Comments LDL (Calculated) (test code = LDL 46 (Calculated)) [facility] HospitalHyihnviDPHMZH9227-43-05 11:25:00 Test Item Value Reference Range Interpretation Comments VLDL (test code = VLDL) 9 1 [facility] [id number] 11:25:00 Test Item Value Reference Range Interpretation Comments Hgb A1C (test code = Hgb A1C) 4.8 [facility]2022-09-12 11:25:00 Test Item Value Reference Range Interpretation Comments Glucose Lvl (test code = Glucose Lvl) 82 70-99 [facility]2022-09-12 11:25:00 Test Item Value Reference Range Interpretation Comments BUN (test code = BUN) 41 7-22 [place] 542562-09-12 11:25:00 Test Item Value Reference Range Interpretation Comments Creatinine Lvl (test code = Creatinine 1.33 0.50-1.40 Lvl) [facility]2022-09-12 11:25:00 Test Item Value Reference Range Interpretation Comments Sodium Lvl (test code = Sodium Lvl) 132 135-145 [facility]2022-09-12 11:25:00 Test Item Value Reference Range Interpretation Comments Potassium Lvl (test code = Potassium 5.1 3.5-5.1 Lvl) [facility]2022-09-12 11:25:00 Test Item Value Reference Range Interpretation Comments Chloride Lvl (test code = Chloride Lvl) 100 95-109 [facility]2022-09-12 11:25:00 Test Item Value Reference Range Interpretation Comments CO2 (test code = CO2) 24 24-32 [place] 542562-09-12 11:25:00 Test Item Value Reference Range Interpretation Comments Calcium Lvl (test code = Calcium Lvl) 8.9 8.5-10.5 [place] 542562-09-12 11:25:00 Test Item Value Reference Range Interpretation Comments Total Protein (test code = Total 6.9 6.4-8.4 Protein) [facility]2022-09-12 11:25:00 Test Item Value Reference Range Interpretation Comments Albumin Lvl (test code = Albumin Lvl) 3.1 3.5-5.0 [place] 542562-09-12 11:25:00 Test Item Value Reference Range Interpretation Comments ALT (test code = ALT) 50 See_Comment [Auto mated message] The system which ge nerated this result transmit rosendo reference range : <=65. The reference range was not used to interpr et this result as josi l/abnormal. [facility] [employer] [id number] 11:25:00 Test Item Value Reference Range Interpretation Comments AST (test code = AST) 45 See_Comment [Auto mated message] The system which ge nerated this result transmit rosendo reference range : <=37. The reference range was not used to interpr et this result as josi l/abnormal. [facility] [employer] [id number] 11:25:00 Test Item Value Reference Range Interpretation Comments Alk Phos (test code = Alk Phos) 127 39-136 [facility] [employer] [id number] 11:25:00 Test Item Value Reference Range Interpretation Comments Bili Total (test code = Bili Total) 0.4 0.2-1.3 [facility] [employer] [id number] 11:25:00 Test Item Value Reference Range Interpretation Comments AGAP (test code = AGAP) 13.1 10.0-20.0 [facility] [employer] [id number] 11:25:00 Test Item Value Reference Range Interpretation Comments B/C Ratio (test code = B/C Ratio) 31 1 6-25 [facility] [employer] [id number] 11:25:00 Test Item Value Reference Range Interpretation Comments Globulin (test code = Globulin) 3.8 2.7-4.2 [facility] [employer] [id number] 11:25:00 Test Item Value Reference Range Interpretation Comments A/G Ratio (test code = A/G Ratio) 0.8 1 0.7-1.6 [facility] [employer] [id number] 11:25:00 Test Item Value Reference Range Interpretation Comments eGFR (test code = eGFR) 40 [facility] [employer] [id number] 11:25:00 Test Item Value Reference Range Interpretation Comments Phosphorus (test code = Phosphorus) 4.2 2.5-4.5 [facility] [employer] [id number] 11:25:00 Test Item Value Reference Range Interpretation Comments Magnesium Lvl (test code = Magnesium 2.4 1.8-2.4 Lvl) [facility]2022-09-12 11:25:00 Test Item Value Reference Range Interpretation Comments Vitamin D, 25-OH, Total (test code = 46 Vitamin D, 25-OH, Total) [place] 519362-09-12 11:25:00 Test Item Value Reference Range Interpretation Comments Segs (test code = Segs) 46.0 45.0-75.0 [place] 519362-09-12 11:25:00 Test Item Value Reference Range Interpretation Comments Lymphocytes (test code = Lymphocytes) 34.8 20.0-40.0 [place] [address]-09-12 11:25:00 Test Item Value Reference Range Interpretation Comments Monocytes (test code = Monocytes) 12.4 2.0-12.0 [place] 519362-09-12 11:25:00 Test Item Value Reference Range Interpretation Comments Eosinophils (test code = 5.6 See_Comment [A utomated message] The Eosinophils) system which ge nerated this result tra nsmitted reference range : <=4.0. The reference r patria was not used to int erpret this result as normal/abnormal . [place] [address]-09-12 11:25:00 Test Item Value Reference Range Interpretation Comments Basophils (test code = 1.2 See_Comment [Aut omated message] The Basophils) system which ge nerated this result tra nsmitted reference range : <=1.0. The reference r patria was not used to int erpret this result as normal/abnormal . [place] 519362-09-12 11:25:00 Test Item Value Reference Range Interpretation Comments Neutrophils # (test code = Neutrophils 2.3 1.5-8.1 #) [place] [address]-09-12 11:25:00 Test Item Value Reference Range Interpretation Comments Lymphocytes # (test code = Lymphocytes 1.8 1.0-5.5 #) [place] [address]-09-12 11:25:00 Test Item Value Reference Range Interpretation Comments Monocytes # (test code 0.6 See_Comment [Aut omated message] The = Monocytes #) system which generated this result tra nsmitted reference range : <=0.8. The reference r patria was not used to int erpret this result as normal/abnormal . [place] [address]-09-12 11:25:00 Test Item Value Reference Range Interpretation Comments Eosinophils # (test code 0.3 See_Comment [A utomated message] The = Eosinophils #) system whic h generated this result tra nsmitted reference range : <=0.5. The reference r patria was not used to int erpret this result as normal/abnormal . [facility]OKERULVF8096[facility] 11:25:00 Test Item Value Reference Range Interpretation Comments Basophils # (test code 0.1 See_Comment [Aut omated message] The = Basophils #) system which generated this result tra nsmitted reference range : <=0.2. The reference r patria was not used to int erpret this result as normal/abnormal . [facility] CenterOnubsbiVZYYBMKEKN4834-14-66 11:25:00 Test Item Value Reference Range Interpretation Comments Macrocyte (test code = 1+ *ABN*(07/23/22 Macrocyte) 6:25 AM) [facility]EzyaeygMMNUAPKEJQ0277-66-89 11:25:00 Test Item Value Reference Range Interpretation Comments WBC (test code = WBC) 5.0 3.7-10.4 [place] 519362-09-12 11:25:00 Test Item Value Reference Range Interpretation Comments RBC (test code = RBC) 2.89 4.20-5.40 [place] 519362-09-12 11:25:00 Test Item Value Reference Range Interpretation Comments Hgb (test code = Hgb) 10.2 12.0-16.0 [place] 519362-09-12 11:25:00 Test Item Value Reference Range Interpretation Comments Hct (test code = Hct) 29.4 36.0-48.0 [place] 519362-09-12 11:25:00 Test Item Value Reference Range Interpretation Comments MCV (test code = MCV) 101.8 80.0-98.0 [place] 519362-09-12 11:25:00 Test Item Value Reference Range Interpretation Comments MCH (test code = MCH) 35.3 pg 27.0-31.0 [place] 519362-09-12 11:25:00 Test Item Value Reference Range Interpretation Comments MCHC (test code = MCHC) 34.7 32.0-36.0 [place] 519362-09-12 11:25:00 Test Item Value Reference Range Interpretation Comments RDW (test code = RDW) 14.9 11.5-14.5 [facility] Ho[id number] 11:25:00 Test Item Value Reference Range Interpretation Comments Platelet (test code = Platelet) 252 133-450 [facility] HospitalPhvwlgfEVAZPCJDLL2601-25-96 11:25:00 Test Item Value Reference Range Interpretation Comments MPV (test code = MPV) 7.2 7.4-10.4 [facility] HospitalYnepwuxISUIOCFSMO7385-56-24 11:25:00 Test Item Value Reference Range Interpretation Comments Prealbumin (test code = Prealbumin) 16.7 18.0-45.0 [facility] HospitalKkldgsuGEAHKQ7456-95-09 11:25:00 Test Item Value Reference Range Interpretation Comments Trig (test code = Trig) 44 [facility] HospitalUzwluwxEAFXKI4069-70-12 11:25:00 Test Item Value Reference Range Interpretation Comments Chol (test code = Chol) 129 [facility] HospitalCyfspsuQTLAAE8836-42-64 11:25:00 Test Item Value Reference Range Interpretation Comments HDL (test code = HDL) 74 [facility] HospitalQzbnfwwJAYOKQ8501-41-99 11:25:00 Test Item Value Reference Range Interpretation Comments CHD Risk (test code = CHD Risk) 1.74 1 3.90-5.80 [facility] HospitalMrwlxpbWSTFLG4995-53-70 11:25:00 Test Item Value Reference Range Interpretation Comments LDL (Calculated) (test code = LDL 46 (Calculated)) [facility] HospitalXjosmetVTHKDH8262-76-07 11:25:00 Test Item Value Reference Range Interpretation Comments VLDL (test code = VLDL) 9 1 [facility] [id number] 11:25:00 Test Item Value Reference Range Interpretation Comments Hgb A1C (test code = Hgb A1C) 4.8 [facility] HospitalCHEM [id number] 11:25:00 Test Item Value Reference Range Interpretation Comments Glucose Lvl (test code = Glucose Lvl) 82 70-99 [facility] [id number] 11:25:00 Test Item Value Reference Range Interpretation Comments BUN (test code = BUN) 41 7-22 [facility] [id number] 11:25:00 Test Item Value Reference Range Interpretation Comments Creatinine Lvl (test code = Creatinine 1.33 0.50-1.40 Lvl) [place] 542562-09-12 11:25:00 Test Item Value Reference Range Interpretation Comments Sodium Lvl (test code = Sodium Lvl) 132 135-145 [place] 542562-09-12 11:25:00 Test Item Value Reference Range Interpretation Comments Potassium Lvl (test code = Potassium 5.1 3.5-5.1 Lvl) [place] 542562-09-12 11:25:00 Test Item Value Reference Range Interpretation Comments Chloride Lvl (test code = Chloride Lvl) 100 95-109 [place] 542562-09-12 11:25:00 Test Item Value Reference Range Interpretation Comments CO2 (test code = CO2) 24 24-32 [place] 542562-09-12 11:25:00 Test Item Value Reference Range Interpretation Comments Calcium Lvl (test code = Calcium Lvl) 8.9 8.5-10.5 [place] 542562-09-12 11:25:00 Test Item Value Reference Range Interpretation Comments Total Protein (test code = Total 6.9 6.4-8.4 Protein) [place] 542562-09-12 11:25:00 Test Item Value Reference Range Interpretation Comments Albumin Lvl (test code = Albumin Lvl) 3.1 3.5-5.0 [place] 542562-09-12 11:25:00 Test Item Value Reference Range Interpretation Comments ALT (test code = ALT) 50 See_Comment [Auto mated message] The system which ge nerated this result transmit rosendo reference range : <=65. The reference range was not used to interpr et this result as josi l/abnormal. [place] 542562-09-12 11:25:00 Test Item Value Reference Range Interpretation Comments AST (test code = AST) 45 See_Comment [Auto mated message] The system which ge nerated this result transmit rosendo reference range : <=37. The reference range was not used to interpr et this result as josi l/abnormal. [place] [address]-09-12 11:25:00 Test Item Value Reference Range Interpretation Comments Alk Phos (test code = Alk Phos) 127 39-136 [place] 542562-09-12 11:25:00 Test Item Value Reference Range Interpretation Comments Bili Total (test code = Bili Total) 0.4 0.2-1.3 [place] 542562-09-12 11:25:00 Test Item Value Reference Range Interpretation Comments AGAP (test code = AGAP) 13.1 10.0-20.0 [place] 542562-09-12 11:25:00 Test Item Value Reference Range Interpretation Comments B/C Ratio (test code = B/C Ratio) 31 1 6-25 [place] 542562-09-12 11:25:00 Test Item Value Reference Range Interpretation Comments Globulin (test code = Globulin) 3.8 2.7-4.2 [place] 542562-09-12 11:25:00 Test Item Value Reference Range Interpretation Comments A/G Ratio (test code = A/G Ratio) 0.8 1 0.7-1.6 [place] 542562-09-12 11:25:00 Test Item Value Reference Range Interpretation Comments eGFR (test code = eGFR) 40 [place] 542562-09-12 11:25:00 Test Item Value Reference Range Interpretation Comments Phosphorus (test code = Phosphorus) 4.2 2.5-4.5 [place] 542562-09-12 11:25:00 Test Item Value Reference Range Interpretation Comments Magnesium Lvl (test code = Magnesium 2.4 1.8-2.4 Lvl) [place] 542562-09-12 11:25:00 Test Item Value Reference Range Interpretation Comments Vitamin D, 25-OH, Total (test code = 46 Vitamin D, 25-OH, Total) [place] [address]-09-12 11:25:00 Test Item Value Reference Range Interpretation Comments Segs (test code = Segs) 46.0 45.0-75.0 [place] 519362-09-12 11:25:00 Test Item Value Reference Range Interpretation Comments Lymphocytes (test code = Lymphocytes) 34.8 20.0-40.0 [place] [address]-09-12 11:25:00 Test Item Value Reference Range Interpretation Comments Monocytes (test code = Monocytes) 12.4 2.0-12.0 [place] [address]-09-12 11:25:00 Test Item Value Reference Range Interpretation Comments Eosinophils (test code = 5.6 See_Comment [A utomated message] The Eosinophils) system which ge nerated this result tra nsmitted reference range : <=4.0. The reference r patria was not used to int erpret this result as normal/abnormal . [place] 519362-09-12 11:25:00 Test Item Value Reference Range Interpretation Comments Basophils (test code = 1.2 See_Comment [Aut omated message] The Basophils) system which ge nerated this result tra nsmitted reference range : <=1.0. The reference r patria was not used to int erpret this result as normal/abnormal . [place] 519362-09-12 11:25:00 Test Item Value Reference Range Interpretation Comments Neutrophils # (test code = Neutrophils 2.3 1.5-8.1 #) [place] [address]-09-12 11:25:00 Test Item Value Reference Range Interpretation Comments Lymphocytes # (test code = Lymphocytes 1.8 1.0-5.5 #) [place] [address]-09-12 11:25:00 Test Item Value Reference Range Interpretation Comments Monocytes # (test code 0.6 See_Comment [Aut omated message] The = Monocytes #) system which generated this result tra nsmitted reference range : <=0.8. The reference r patria was not used to int erpret this result as normal/abnormal . [place] [address]-09-12 11:25:00 Test Item Value Reference Range Interpretation Comments Eosinophils # (test code 0.3 See_Comment [A utomated message] The = Eosinophils #) system [facility] h generated this result tra nsmitted reference range : <=0.5. The reference r patria was not used to int erpret this result as normal/abnormal . [place] 519362-09-12 11:25:00 Test Item Value Reference Range Interpretation Comments Basophils # (test code 0.1 See_Comment [Aut omated message] The = Basophils #) system which generated this result tra nsmitted reference range : <=0.2. The reference r patria was not used to int erpret this result as normal/abnormal . [place] 519362-09-12 11:25:00 Test Item Value Reference Range Interpretation Comments Macrocyte (test code = 1+ *ABN*(07/23/22 Macrocyte) 6:25 AM) [facility]OdysjynWFJWRFQOUJ5721-23-88 11:25:00 Test Item Value Reference Range Interpretation Comments WBC (test code = WBC) 5.0 3.7-10.4 [facility] CenterUoiqablJRGAVZURQG6649-96-70 11:25:00 Test Item Value Reference Range Interpretation Comments RBC (test code = RBC) 2.89 4.20-5.40 [facility] CenterMkfqlpaLLOLGRWPFQ6907-96-76 11:25:00 Test Item Value Reference Range Interpretation Comments Hgb (test code = Hgb) 10.2 12.0-16.0 [facility] CenterKrtcopnDCVLCVBJBW3079-81-26 11:25:00 Test Item Value Reference Range Interpretation Comments Hct (test code = Hct) 29.4 36.0-48.0 [facility] CenterSpsbvktTDNRVQWMLB9173-34-67 11:25:00 Test Item Value Reference Range Interpretation Comments MCV (test code = MCV) 101.8 80.0-98.0 [facility] CenterHoihzuoRYABUOJJQE7826-93-33 11:25:00 Test Item Value Reference Range Interpretation Comments MCH (test code = MCH) 35.3 pg 27.0-31.0 [facility] CenterMubeemgUEBNLNXIQR4445-31-55 11:25:00 Test Item Value Reference Range Interpretation Comments MCHC (test code = MCHC) 34.7 32.0-36.0 [facility] CenterIuzokbeSQZJWCKDUX3268-85-74 11:25:00 Test Item Value Reference Range Interpretation Comments RDW (test code = RDW) 14.9 11.5-14.5 [facility] CenterCyfmfpgEHJDRDMQMM9759-30-26 11:25:00 Test Item Value Reference Range Interpretation Comments Platelet (test code = Platelet) 252 133-450 [facility] CenterHqpauwnVKBVHFAIMX3212-79-81 11:25:00 Test Item Value Reference Range Interpretation Comments MPV (test code = MPV) 7.2 7.4-10.4 [facility] HospitalMxaggkkRFLGLYVPKA0660-88-27 11:25:00 Test Item Value Reference Range Interpretation Comments Prealbumin (test code = Prealbumin) 16.7 18.0-45.0 [facility]wb[facility]peuYBMVYD5723[facility]-55 11:25:00 Test Item Value Reference Range Interpretation Comments Trig (test code = Trig) 44 [facility] CenterAwswdzsKCGSTG9969-40-12 11:25:00 Test Item Value Reference Range Interpretation Comments Chol (test code = Chol) 129 [facility] HospitalRcvxjffONFZGN2048-97-11 11:25:00 Test Item Value Reference Range Interpretation Comments HDL (test code = HDL) 74 [facility] HospitalEgjbgguRLRXEJ6880-43-46 11:25:00 Test Item Value Reference Range Interpretation Comments CHD Risk (test code = CHD Risk) 1.74 1 3.90-5.80 [facility] HospitalXkeyfmyTFOZPO1610-10-99 11:25:00 Test Item Value Reference Range Interpretation Comments LDL (Calculated) (test code = LDL 46 (Calculated)) [facility] HospitalEnteahmTOEIYO9575-08-65 11:25:00 Test Item Value Reference Range Interpretation Comments VLDL (test code = VLDL) 9 1 [facility] SXPLBQDLV9595-08-73 11:25:00 Test Item Value Reference Range Interpretation Comments Hgb A1C (test code = Hgb A1C) 4.8 [facility]2022-09-12 11:25:00 Test Item Value Reference Range Interpretation Comments Glucose Lvl (test code = Glucose Lvl) 82 70-99 [facility]2022-09-12 11:25:00 Test Item Value Reference Range Interpretation Comments BUN (test code = BUN) 41 7-22 [facility]2022-09-12 11:25:00 Test Item Value Reference Range Interpretation Comments Creatinine Lvl (test code = Creatinine 1.33 0.50-1.40 Lvl) [facility]2022-09-12 11:25:00 Test Item Value Reference Range Interpretation Comments Sodium Lvl (test code = Sodium Lvl) 132 135-145 [facility]2022-09-12 11:25:00 Test Item Value Reference Range Interpretation Comments Potassium Lvl (test code = Potassium 5.1 3.5-5.1 Lvl) [place] 542562-09-12 11:25:00 Test Item Value Reference Range Interpretation Comments Chloride Lvl (test code = Chloride Lvl) 100 95-109 [place] 542562-09-12 11:25:00 Test Item Value Reference Range Interpretation Comments CO2 (test code = CO2) 24 24-32 [place] 542562-09-12 11:25:00 Test Item Value Reference Range Interpretation Comments Calcium Lvl (test code = Calcium Lvl) 8.9 8.5-10.5 [place] 542562-09-12 11:25:00 Test Item Value Reference Range Interpretation Comments Total Protein (test code = Total 6.9 6.4-8.4 Protein) [place] 542562-09-12 11:25:00 Test Item Value Reference Range Interpretation Comments Albumin Lvl (test code = Albumin Lvl) 3.1 3.5-5.0 [place] 542562-09-12 11:25:00 Test Item Value Reference Range Interpretation Comments ALT (test code = ALT) 50 See_Comment [Auto mated message] The system which ge nerated this result transmit rosendo reference range : <=65. The reference range was not used to interpr et this result as josi l/abnormal. [place] 542562-09-12 11:25:00 Test Item Value Reference Range Interpretation Comments AST (test code = AST) 45 See_Comment [Auto mated message] The system which ge nerated this result transmit rosendo reference range : <=37. The reference range was not used to interpr et this result as josi l/abnormal. [place] 542562-09-12 11:25:00 Test Item Value Reference Range Interpretation Comments Alk Phos (test code = Alk Phos) 127 39-136 [place] 542562-09-12 11:25:00 Test Item Value Reference Range Interpretation Comments Bili Total (test code = Bili Total) 0.4 0.2-1.3 [place] 542562-09-12 11:25:00 Test Item Value Reference Range Interpretation Comments AGAP (test code = AGAP) 13.1 10.0-20.0 [place] 542562-09-12 11:25:00 Test Item Value Reference Range Interpretation Comments B/C Ratio (test code = B/C Ratio) 31 1 6-25 [place] [address]-09-12 11:25:00 Test Item Value Reference Range Interpretation Comments Globulin (test code = Globulin) 3.8 2.7-4.2 [place] [address]-09-12 11:25:00 Test Item Value Reference Range Interpretation Comments A/G Ratio (test code = A/G Ratio) 0.8 1 0.7-1.6 [place] [address]-09-12 11:25:00 Test Item Value Reference Range Interpretation Comments eGFR (test code = eGFR) 40 [place] 542562-09-12 11:25:00 Test Item Value Reference Range Interpretation Comments Phosphorus (test code = Phosphorus) 4.2 2.5-4.5 [place] 542562-09-12 11:25:00 Test Item Value Reference Range Interpretation Comments Magnesium Lvl (test code = Magnesium 2.4 1.8-2.4 Lvl) [place] [address]-09-12 11:25:00 Test Item Value Reference Range Interpretation Comments Vitamin D, 25-OH, Total (test code = 46 Vitamin D, 25-OH, Total) [place] [address]-09-12 11:25:00 Test Item Value Reference Range Interpretation Comments Segs (test code = Segs) 46.0 45.0-75.0 [place] [address]-09-12 11:25:00 Test Item Value Reference Range Interpretation Comments Lymphocytes (test code = Lymphocytes) 34.8 20.0-40.0 [place] [address]-09-12 11:25:00 Test Item Value Reference Range Interpretation Comments Monocytes (test code = Monocytes) 12.4 2.0-12.0 [place] [address]-09-12 11:25:00 Test Item Value Reference Range Interpretation Comments Eosinophils (test code = 5.6 See_Comment [A utomated message] The Eosinophils) system which ge nerated this result tra nsmitted reference range : <=4.0. The reference r patria was not used to int erpret this result as normal/abnormal . [place] [address]-09-12 11:25:00 Test Item Value Reference Range Interpretation Comments Basophils (test code = 1.2 See_Comment [Aut omated message] The Basophils) system which ge nerated this result tra nsmitted reference range : <=1.0. The reference r patria was not used to int erpret this result as normal/abnormal . [place] [address]-09-12 11:25:00 Test Item Value Reference Range Interpretation Comments Neutrophils # (test code = Neutrophils 2.3 1.5-8.1 #) [address]09-12 11:25:00 Test Item Value Reference Range Interpretation Comments Lymphocytes # (test code = Lymphocytes 1.8 1.0-5.5 #) [facility]xeckcpAJBCERTKDY8668[facility] 11:25:00 Test Item Value Reference Range Interpretation Comments Monocytes # (test code 0.6 See_Comment [Aut omated message] The = Monocytes #) system which generated this result tra nsmitted reference range : <=0.8. The reference r patria was not used to int erpret this result as normal/abnormal . [facility] CenterUcupzzgLHYEWRJQSY1145-47-82 11:25:00 Test Item Value Reference Range Interpretation Comments Eosinophils # (test code 0.3 See_Comment [A utomated message] The = Eosinophils #) system whic h generated this result tra nsmitted reference range : <=0.5. The reference r patria was not used to int erpret this result as normal/abnormal . [facility]AJLWDKWZHN[facility]:00 Test Item Value Reference Range Interpretation Comments Basophils # (test code 0.1 See_Comment [Aut omated message] The = Basophils #) system which generated this result tra nsmitted reference range : <=0.2. The reference r patria was not used to int erpret this result as normal/abnormal . [facility] CenterFxgioueNOAMUATQLN3294-34-54 11:25:00 Test Item Value Reference Range Interpretation Comments Macrocyte (test code = 1+ *ABN*(07/23/22 Macrocyte) 6:25 AM) [place] 519362-09-12 11:25:00 Test Item Value Reference Range Interpretation Comments WBC (test code = WBC) 5.0 3.7-10.4 [place] 519362-09-12 11:25:00 Test Item Value Reference Range Interpretation Comments RBC (test code = RBC) 2.89 4.20-5.40 [place] 519362-09-12 11:25:00 Test Item Value Reference Range Interpretation Comments Hgb (test code = Hgb) 10.2 12.0-16.0 [place] 519362-09-12 11:25:00 Test Item Value Reference Range Interpretation Comments Hct (test code = Hct) 29.4 36.0-48.0 [place] [address]-09-12 11:25:00 Test Item Value Reference Range Interpretation Comments MCV (test code = MCV) 101.8 80.0-98.0 [facility] ServicesEjtqaqfLPYEPQARWQ1955-46-07 11:25:00 Test Item Value Reference Range Interpretation Comments MCH (test code = MCH) 35.3 pg 27.0-31.0 [facility] ServicesWpkkgppCDCDFBEUZW5436-48-95 11:25:00 Test Item Value Reference Range Interpretation Comments MCHC (test code = MCHC) 34.7 32.0-36.0 [facility] ServicesInoozklRYGYMHYKRS9019-85-86 11:25:00 Test Item Value Reference Range Interpretation Comments RDW (test code = RDW) 14.9 11.5-14.5 [facility] ServicesLkqlbxkGZRNBVOTCR3533-66-66 11:25:00 Test Item Value Reference Range Interpretation Comments Platelet (test code = Platelet) 252 133-450 [facility] ServicesPolvqrxIFQRWRQJLB1668-79-44 11:25:00 Test Item Value Reference Range Interpretation Comments MPV (test code = MPV) 7.2 7.4-10.4 [facility]QsjngyuQQDKTGBXFH2191-73-45 11:25:00 Test Item Value Reference Range Interpretation Comments Prealbumin (test code = Prealbumin) 16.7 18.0-45.0 [facility] HospitalBtqpjksLDUKQL0975-78-56 11:25:00 Test Item Value Reference Range Interpretation Comments Trig (test code = Trig) 44 [facility] HospitalFyfblrwJSROZA4244-03-55 11:25:00 Test Item Value Reference Range Interpretation Comments Chol (test code = Chol) 129 [facility] HospitalRpuxbhdECNEGH8875-88-23 11:25:00 Test Item Value Reference Range Interpretation Comments HDL (test code = HDL) 74 [facility] HospitalOnuehokIDWBFO2088-28-57 11:25:00 Test Item Value Reference Range Interpretation Comments CHD Risk (test code = CHD Risk) 1.74 1 3.90-5.80 [facility] HospitalIujqrfxKDKSQX3304-22-53 11:25:00 Test Item Value Reference Range Interpretation Comments LDL (Calculated) (test code = LDL 46 (Calculated)) [facility] HospitalGyqaykvRZWYUK5647-23-35 11:25:00 Test Item Value Reference Range Interpretation Comments VLDL (test code = VLDL) 9 1 [facility] AAFKTSYCM6799[facility]08-77 11:25:00 Test Item Value Reference Range Interpretation Comments Hgb A1C (test code = Hgb A1C) 4.8 [place] 542562-09-12 11:25:00 Test Item Value Reference Range Interpretation Comments Glucose Lvl (test code = Glucose Lvl) 82 70-99 [place] 542562-09-12 11:25:00 Test Item Value Reference Range Interpretation Comments BUN (test code = BUN) 41 7-22 [place] 542562-09-12 11:25:00 Test Item Value Reference Range Interpretation Comments Creatinine Lvl (test code = Creatinine 1.33 0.50-1.40 Lvl) [place] 542562-09-12 11:25:00 Test Item Value Reference Range Interpretation Comments Sodium Lvl (test code = Sodium Lvl) 132 135-145 [place] 542562-09-12 11:25:00 Test Item Value Reference Range Interpretation Comments Potassium Lvl (test code = Potassium 5.1 3.5-5.1 Lvl) [place] 542562-09-12 11:25:00 Test Item Value Reference Range Interpretation Comments Chloride Lvl (test code = Chloride Lvl) 100 95-109 [place] 542562-09-12 11:25:00 Test Item Value Reference Range Interpretation Comments CO2 (test code = CO2) 24 24-32 [place] 542562-09-12 11:25:00 Test Item Value Reference Range Interpretation Comments Calcium Lvl (test code = Calcium Lvl) 8.9 8.5-10.5 [place] 542562-09-12 11:25:00 Test Item Value Reference Range Interpretation Comments Total Protein (test code = Total 6.9 6.4-8.4 Protein) [place] 542562-09-12 11:25:00 Test Item Value Reference Range Interpretation Comments Albumin Lvl (test code = Albumin Lvl) 3.1 3.5-5.0 [place] 542562-09-12 11:25:00 Test Item Value Reference Range Interpretation Comments ALT (test code = ALT) 50 See_Comment [Auto mated message] The system which ge nerated this result transmit rosendo reference range : <=65. The reference range was not used to interpr et this result as josi l/abnormal. [place] 542562-09-12 11:25:00 Test Item Value Reference Range Interpretation Comments AST (test code = AST) 45 See_Comment [Auto mated message] The system which ge nerated this result transmit rosendo reference range : <=37. The reference range was not used to interpr et this result as josi l/abnormal. [place] 542562-09-12 11:25:00 Test Item Value Reference Range Interpretation Comments Alk Phos (test code = Alk Phos) 127 39-136 [place] 542562-09-12 11:25:00 Test Item Value Reference Range Interpretation Comments Bili Total (test code = Bili Total) 0.4 0.2-1.3 [place] 542562-09-12 11:25:00 Test Item Value Reference Range Interpretation Comments AGAP (test code = AGAP) 13.1 10.0-20.0 [place] 542562-09-12 11:25:00 Test Item Value Reference Range Interpretation Comments B/C Ratio (test code = B/C Ratio) 31 1 6-25 [place] 542562-09-12 11:25:00 Test Item Value Reference Range Interpretation Comments Globulin (test code = Globulin) 3.8 2.7-4.2 [facility]2022-09-12 11:25:00 Test Item Value Reference Range Interpretation Comments A/G Ratio (test code = A/G Ratio) 0.8 1 0.7-1.6 [place] [address]-09-12 11:25:00 Test Item Value Reference Range Interpretation Comments eGFR (test code = eGFR) 40 [place] 542562-09-12 11:25:00 Test Item Value Reference Range Interpretation Comments Phosphorus (test code = Phosphorus) 4.2 2.5-4.5 [place] 542562-09-12 11:25:00 Test Item Value Reference Range Interpretation Comments Magnesium Lvl (test code = Magnesium 2.4 1.8-2.4 Lvl) [place] 542562-09-12 11:25:00 Test Item Value Reference Range Interpretation Comments Vitamin D, 25-OH, Total (test code = 46 Vitamin D, 25-OH, Total) [facility]HmfozvsMGPEPEDWTA2642-08-57 11:25:00 Test Item Value Reference Range Interpretation Comments Segs (test code = Segs) 46.0 45.0-75.0 [place] 519362-09-12 11:25:00 Test Item Value Reference Range Interpretation Comments Lymphocytes (test code = Lymphocytes) 34.8 20.0-40.0 [place] [address]-09-12 11:25:00 Test Item Value Reference Range Interpretation Comments Monocytes (test code = Monocytes) 12.4 2.0-12.0 [place] [address]-09-12 11:25:00 Test Item Value Reference Range Interpretation Comments Eosinophils (test code = 5.6 See_Comment [A utomated message] The Eosinophils) system which ge nerated this result tra nsmitted reference range : <=4.0. The reference r patria was not used to int erpret this result as normal/abnormal . [place] [address]-09-12 11:25:00 Test Item Value Reference Range Interpretation Comments Basophils (test code = 1.2 See_Comment [Aut omated message] The Basophils) system which ge nerated this result tra nsmitted reference range : <=1.0. The reference r patria was not used to int erpret this result as normal/abnormal . [place] 519362-09-12 11:25:00 Test Item Value Reference Range Interpretation Comments Neutrophils # (test code = Neutrophils 2.3 1.5-8.1 #) [place] [address]-09-12 11:25:00 Test Item Value Reference Range Interpretation Comments Lymphocytes # (test code = Lymphocytes 1.8 1.0-5.5 #) [place] [address]-09-12 11:25:00 Test Item Value Reference Range Interpretation Comments Monocytes # (test code 0.6 See_Comment [Aut omated message] The = Monocytes #) system which generated this result tra nsmitted reference range : <=0.8. The reference r patria was not used to int erpret this result as normal/abnormal . [place] [address]-09-12 11:25:00 Test Item Value Reference Range Interpretation Comments Eosinophils # (test code 0.3 See_Comment [A utomated message] The = Eosinophils #) system whic h generated this result tra nsmitted reference range : <=0.5. The reference r patria was not used to int erpret this result as normal/abnormal . [facility] CenterShbpuhvFWGPNUAMOJ0732-23-57 11:25:00 Test Item Value Reference Range Interpretation Comments Basophils # (test code 0.1 See_Comment [Aut omated message] The = Basophils #) system which generated this result tra nsmitted reference range : <=0.2. The reference r patria was not used to int erpret this result as normal/abnormal . [facility] CenterRsplofqXUKYPMFPOV6365-63-40 11:25:00 Test Item Value Reference Range Interpretation Comments Macrocyte (test code = 1+ *ABN*(07/23/22 Macrocyte) 6:25 AM) [facility] CenterPlmclifFVMQKZWZYY2276-99-09 11:25:00 Test Item Value Reference Range Interpretation Comments WBC (test code = WBC) 5.0 3.7-10.4 [place] 519362-09-12 11:25:00 Test Item Value Reference Range Interpretation Comments RBC (test code = RBC) 2.89 4.20-5.40 [place] 519362-09-12 11:25:00 Test Item Value Reference Range Interpretation Comments Hgb (test code = Hgb) 10.2 12.0-16.0 [place] 519362-09-12 11:25:00 Test Item Value Reference Range Interpretation Comments Hct (test code = Hct) 29.4 36.0-48.0 [place] 519362-09-12 11:25:00 Test Item Value Reference Range Interpretation Comments MCV (test code = MCV) 101.8 80.0-98.0 [place] 519362-09-12 11:25:00 Test Item Value Reference Range Interpretation Comments MCH (test code = MCH) 35.3 pg 27.0-31.0 [place] 519362-09-12 11:25:00 Test Item Value Reference Range Interpretation Comments MCHC (test code = MCHC) 34.7 32.0-36.0 [place] 519362-09-12 11:25:00 Test Item Value Reference Range Interpretation Comments RDW (test code = RDW) 14.9 11.5-14.5 [place] 519362-09-12 11:25:00 Test Item Value Reference Range Interpretation Comments Platelet (test code = Platelet) 252 133-450 [facility] HospitalDolhaieBKUJDBMOVL0234-92-97 11:25:00 Test Item Value Reference Range Interpretation Comments MPV (test code = MPV) 7.2 7.4-10.4 [facility] HospitalWrkmudlSFIRKYBLBF3457-57-48 11:25:00 Test Item Value Reference Range Interpretation Comments Prealbumin (test code = Prealbumin) 16.7 18.0-45.0 [facility] HospitalJoqwisfAFERYT8334-42-34 11:25:00 Test Item Value Reference Range Interpretation Comments Trig (test code = Trig) 44 [facility] HospitalCapxqalWBQBVW9342-66-85 11:25:00 Test Item Value Reference Range Interpretation Comments Chol (test code = Chol) 129 [facility] HospitalKhwkahgAWPZSO0228-76-43 11:25:00 Test Item Value Reference Range Interpretation Comments HDL (test code = HDL) 74 [facility] HospitalRmbyrhnKPYBIX4598-86-42 11:25:00 Test Item Value Reference Range Interpretation Comments CHD Risk (test code = CHD Risk) 1.74 1 3.90-5.80 [facility] HospitalFfmvrecLAEUJH9985-99-82 11:25:00 Test Item Value Reference Range Interpretation Comments LDL (Calculated) (test code = LDL 46 (Calculated)) [facility] HospitalSibkygjJTOOCM4508-60-96 11:25:00 Test Item Value Reference Range Interpretation Comments VLDL (test code = VLDL) 9 1 [facility] MJERUMVJJ3907-65-84 11:25:00 Test Item Value Reference Range Interpretation Comments Hgb A1C (test code = Hgb A1C) 4.8 [facility]In[facility] AQIPM0634-20-63 11:25:00 Test Item Value Reference Range Interpretation Comments Glucose Lvl (test code = Glucose Lvl) 82 70-99 [facility]2022-09-12 11:25:00 Test Item Value Reference Range Interpretation Comments BUN (test code = BUN) 41 7-22 [facility] DBCOQ9487-94-62 11:25:00 Test Item Value Reference Range Interpretation Comments Creatinine Lvl (test code = Creatinine 1.33 0.50-1.40 Lvl) [facility]2022-09-12 11:25:00 Test Item Value Reference Range Interpretation Comments Sodium Lvl (test code = Sodium Lvl) 132 135-145 [facility]2022-09-12 11:25:00 Test Item Value Reference Range Interpretation Comments Potassium Lvl (test code = Potassium 5.1 3.5-5.1 Lvl) [place] 542562-09-12 11:25:00 Test Item Value Reference Range Interpretation Comments Chloride Lvl (test code = Chloride Lvl) 100 95-109 [place] 542562-09-12 11:25:00 Test Item Value Reference Range Interpretation Comments CO2 (test code = CO2) 24 24-32 [place] 542562-09-12 11:25:00 Test Item Value Reference Range Interpretation Comments Calcium Lvl (test code = Calcium Lvl) 8.9 8.5-10.5 [place] 542562-09-12 11:25:00 Test Item Value Reference Range Interpretation Comments Total Protein (test code = Total 6.9 6.4-8.4 Protein) [place] 542562-09-12 11:25:00 Test Item Value Reference Range Interpretation Comments Albumin Lvl (test code = Albumin Lvl) 3.1 3.5-5.0 [place] 542562-09-12 11:25:00 Test Item Value Reference Range Interpretation Comments ALT (test code = ALT) 50 See_Comment [Auto mated message] The system which ge nerated this result transmit rosendo reference range : <=65. The reference range was not used to interpr et this result as josi l/abnormal. [place] 542562-09-12 11:25:00 Test Item Value Reference Range Interpretation Comments AST (test code = AST) 45 See_Comment [Auto mated message] The system which ge nerated this result transmit rosendo reference range : <=37. The reference range was not used to interpr et this result as josi l/abnormal. [place] 542562-09-12 11:25:00 Test Item Value Reference Range Interpretation Comments Alk Phos (test code = Alk Phos) 127 39-136 [place] 542562-09-12 11:25:00 Test Item Value Reference Range Interpretation Comments Bili Total (test code = Bili Total) 0.4 0.2-1.3 [place] [address]-09-12 11:25:00 Test Item Value Reference Range Interpretation Comments AGAP (test code = AGAP) 13.1 10.0-20.0 [place] 542562-09-12 11:25:00 Test Item Value Reference Range Interpretation Comments B/C Ratio (test code = B/C Ratio) 31 1 6-25 [place] 542562-09-12 11:25:00 Test Item Value Reference Range Interpretation Comments Globulin (test code = Globulin) 3.8 2.7-4.2 [place] 542562-09-12 11:25:00 Test Item Value Reference Range Interpretation Comments A/G Ratio (test code = A/G Ratio) 0.8 1 0.7-1.6 [place] 542562-09-12 11:25:00 Test Item Value Reference Range Interpretation Comments eGFR (test code = eGFR) 40 [place] 542562-09-12 11:25:00 Test Item Value Reference Range Interpretation Comments Phosphorus (test code = Phosphorus) 4.2 2.5-4.5 [place] 542562-09-12 11:25:00 Test Item Value Reference Range Interpretation Comments Magnesium Lvl (test code = Magnesium 2.4 1.8-2.4 Lvl) [place] 542562-09-12 11:25:00 Test Item Value Reference Range Interpretation Comments Vitamin D, 25-OH, Total (test code = 46 Vitamin D, 25-OH, Total) [place] 519362-09-12 11:25:00 Test Item Value Reference Range Interpretation Comments Segs (test code = Segs) 46.0 45.0-75.0 [place] 519362-09-12 11:25:00 Test Item Value Reference Range Interpretation Comments Lymphocytes (test code = Lymphocytes) 34.8 20.0-40.0 [place] [address]-09-12 11:25:00 Test Item Value Reference Range Interpretation Comments Monocytes (test code = Monocytes) 12.4 2.0-12.0 [place] [address]-09-12 11:25:00 Test Item Value Reference Range Interpretation Comments Eosinophils (test code = 5.6 See_Comment [A utomated message] The Eosinophils) system which ge nerated this result tra nsmitted reference range : <=4.0. The reference r patria was not used to int erpret this result as normal/abnormal . [place] [address]-09-12 11:25:00 Test Item Value Reference Range Interpretation Comments Basophils (test code = 1.2 See_Comment [Aut omated message] The Basophils) system which ge nerated this result tra nsmitted reference range : <=1.0. The reference r patria was not used to int erpret this result as normal/abnormal . [place] 519362-09-12 11:25:00 Test Item Value Reference Range Interpretation Comments Neutrophils # (test code = Neutrophils 2.3 1.5-8.1 #) [facility]WcqpfygKFGAISXVBZ9216-93-20 11:25:00 Test Item Value Reference Range Interpretation Comments Lymphocytes # (test code = Lymphocytes 1.8 1.0-5.5 #) [place] 519362-09-12 11:25:00 Test Item Value Reference Range Interpretation Comments Monocytes # (test code 0.6 See_Comment [Aut omated message] The = Monocytes #) system which generated this result tra nsmitted reference range : <=0.8. The reference r patria was not used to int erpret this result as normal/abnormal . [facility] CenterDaqpvptDDKRUVNVCA2989-39-09 11:25:00 Test Item Value Reference Range Interpretation Comments Eosinophils # (test code 0.3 See_Comment [A utomated message] The = Eosinophils #) system whic h generated this result tra nsmitted reference range : <=0.5. The reference r patria was not used to int erpret this result as normal/abnormal . [facility] CenterStiyfcgRNGKBNUQXE2304-30-90 11:25:00 Test Item Value Reference Range Interpretation Comments Basophils # (test code 0.1 See_Comment [Aut omated message] The = Basophils #) system which generated this result tra nsmitted reference range : <=0.2. The reference r patria was not used to int erpret this result as normal/abnormal . [place] 519362-09-12 11:25:00 Test Item Value Reference Range Interpretation Comments Macrocyte (test code = 1+ *ABN*(07/23/22 Macrocyte) 6:25 AM) [place] 519362-09-12 11:25:00 Test Item Value Reference Range Interpretation Comments WBC (test code = WBC) 5.0 3.7-10.4 [place] 519362-09-12 11:25:00 Test Item Value Reference Range Interpretation Comments RBC (test code = RBC) 2.89 4.20-5.40 [facility] CenterFxwfrqzIJAIJMZBRW9651-79-65 11:25:00 Test Item Value Reference Range Interpretation Comments Hgb (test code = Hgb) 10.2 12.0-16.0 [facility] CenterZufjweeKOGXKUAMKX6241-58-05 11:25:00 Test Item Value Reference Range Interpretation Comments Hct (test code = Hct) 29.4 36.0-48.0 [facility] CenterYgfmtyiVFPOYHZOSN2515-61-34 11:25:00 Test Item Value Reference Range Interpretation Comments MCV (test code = MCV) 101.8 80.0-98.0 [facility] CenterYeetyrvJWRKDXADIO0223-51-43 11:25:00 Test Item Value Reference Range Interpretation Comments MCH (test code = MCH) 35.3 pg 27.0-31.0 [facility] CenterHzfwvxmUGPYRMHDWZ9153-13-81 11:25:00 Test Item Value Reference Range Interpretation Comments MCHC (test code = MCHC) 34.7 32.0-36.0 [facility] CenterYzctpkdNDQGXERMIA1050-12-65 11:25:00 Test Item Value Reference Range Interpretation Comments RDW (test code = RDW) 14.9 11.5-14.5 [facility] CenterJniaglxACCQTOTKIL8571-99-86 11:25:00 Test Item Value Reference Range Interpretation Comments Platelet (test code = Platelet) 252 133-450 [facility] CenterRcdxpvtFHJYZRRQJI8210-24-36 11:25:00 Test Item Value Reference Range Interpretation Comments MPV (test code = MPV) 7.2 7.4-10.4 [facility] HospitalJuspvogWQHIBYIDTL0368-87-85 11:25:00 Test Item Value Reference Range Interpretation Comments Prealbumin (test code = Prealbumin) 16.7 18.0-45.0 [facility] HospitalYadowfwMTYRZA9160-26-90 11:25:00 Test Item Value Reference Range Interpretation Comments Trig (test code = Trig) 44 [facility]LxffhwbSNUJHT6699-72-98 11:25:00 Test Item Value Reference Range Interpretation Comments Chol (test code = Chol) 129 [facility] CenterYerxoirATUJNA5399-26-45 11:25:00 Test Item Value Reference Range Interpretation Comments HDL (test code = HDL) 74 [place] 519712-09-12 11:25:00 Test Item Value Reference Range Interpretation Comments CHD Risk (test code = CHD Risk) 1.74 1 3.90-5.80 [facility] MwmgwftIXWNZM2809-21-22 11:25:00 Test Item Value Reference Range Interpretation Comments LDL (Calculated) (test code = LDL 46 (Calculated)) [facility] SatjiquSXSMLW2078-22-38 11:25:00 Test Item Value Reference Range Interpretation Comments VLDL (test code = VLDL) 9 1 [facility] HospitalSPECIAL MPDFNCSIX3544-70-43 11:25:00 Test Item Value Reference Range Interpretation Comments Hgb A1C (test code = Hgb A1C) 4.8 [facility] [id number] 06:21:00 Test Item Value Reference Range Interpretation Comments UA Color (test code = Yellow *NA*(07/23/22 UA Color) 1:21 AM) [facility] [id number] 06:21:00 Test Item Value Reference Range Interpretation Comments UA Turbidity (test code = Clear (07/23/22 1:21 UA Turbidity) AM) [facility] [id number] 06:21:00 Test Item Value Reference Range Interpretation Comments UA Spec Grav (test code = UA Spec 1.010 1 Grav) [facility] AND [id number] 06:21:00 Test Item Value Reference Range Interpretation Comments UA pH (test code = UA pH) 6.0 1 5.0-8.0 [facility] [id number] 06:21:00 Test Item Value Reference Range Interpretation Comments UA Protein (test code = UA Negative mg/dL Protein) [facility] [id number] 06:21:00 Test Item Value Reference Range Interpretation Comments UA Glucose (test code = UA Negative mg/dL Glucose) [facility] [id number] 06:21:00 Test Item Value Reference Range Interpretation Comments UA Ketones (test code = UA Negative mg/dL Ketones) [facility]ann[facility] [id number] 06:21:00 Test Item Value Reference Range Interpretation Comments UA Bili (test code = Negative *NA*(07/23/22 UA Bili) 1:21 AM) [facility] [id number] 06:21:00 Test Item Value Reference Range Interpretation Comments UA Blood (test code = Negative (07/23/22 1:21 UA Blood) AM) [facility] AND [id number] 06:21:00 Test Item Value Reference Range Interpretation Comments UA Urobilinogen (test code = UA 0.2 0.1-1.0 Urobilinogen) [facility] AND [id number] 06:21:00 Test Item Value Reference Range Interpretation Comments UA Nitrite (test code Negative (07/23/22 1:21 = UA Nitrite) AM) [facility] AND [id number] 06:21:00 Test Item Value Reference Range Interpretation Comments UA Leuk Est (test Negative (07/23/22 1:21 code = UA Leuk Est) AM) [facility] AND [id number] 06:21:00 Test Item Value Reference Range Interpretation Comments UA Sq Epi (test code = UA Sq Epi) Few /LPF [facility] AND [id number] 06:21:00 Test Item Value Reference Range Interpretation Comments UA WBC (test code = UA WBC) 3-5 /HPF [facility] AND [id number] 06:21:00 Test Item Value Reference Range Interpretation Comments UA RBC (test code = UA RBC) 0-2 /HPF [facility] AND [id number] 06:21:00 Test Item Value Reference Range Interpretation Comments UA Bacteria (test code = UA Few /HPF Bacteria) [facility] AND [id number] 06:21:00 Test Item Value Reference Range Interpretation Comments UA Color (test code = Yellow *NA*(07/23/22 UA Color) 1:21 AM) [facility] AND [id number] 06:21:00 Test Item Value Reference Range Interpretation Comments UA Turbidity (test code = Clear (07/23/22 1:21 UA Turbidity) AM) [facility] AND [id number] 06:21:00 Test Item Value Reference Range Interpretation Comments UA Spec Grav (test code = UA Spec 1.010 1 Grav) [facility] AND [id number] 06:21:00 Test Item Value Reference Range Interpretation Comments UA pH (test code = UA pH) 6.0 1 5.0-8.0 [facility] AND [id number] 06:21:00 Test Item Value Reference Range Interpretation Comments UA Protein (test code = UA Negative mg/dL Protein) [facility] [id number] 06:21:00 Test Item Value Reference Range Interpretation Comments UA Glucose (test code = UA Negative mg/dL Glucose) [facility] AND [id number] 06:21:00 Test Item Value Reference Range Interpretation Comments UA Ketones (test code = UA Negative mg/dL Ketones) [facility] AND [id number] 06:21:00 Test Item Value Reference Range Interpretation Comments UA Bili (test code = Negative *NA*(07/23/22 UA Bili) 1:21 AM) [facility] AND [id number] 06:21:00 Test Item Value Reference Range Interpretation Comments UA Blood (test code = Negative (07/23/22 1:21 UA Blood) AM) [facility] AND [id number] 06:21:00 Test Item Value Reference Range Interpretation Comments UA Urobilinogen (test code = UA 0.2 0.1-1.0 Urobilinogen) [facility] AND [id number] 06:21:00 Test Item Value Reference Range Interpretation Comments UA Nitrite (test code Negative (07/23/22 1:21 = UA Nitrite) AM) [facility] AND [id number] 06:21:00 Test Item Value Reference Range Interpretation Comments UA Leuk Est (test Negative (07/23/22 1:21 code = UA Leuk Est) AM) [facility] AND [id number] 06:21:00 Test Item Value Reference Range Interpretation Comments UA Sq Epi (test code = UA Sq Epi) Few /LPF [facility] AND [id number] 06:21:00 Test Item Value Reference Range Interpretation Comments UA WBC (test code = UA WBC) 3-5 /HPF [facility] AND [id number] 06:21:00 Test Item Value Reference Range Interpretation Comments UA RBC (test code = UA RBC) 0-2 /HPF [facility] AND [id number] 06:21:00 Test Item Value Reference Range Interpretation Comments UA Bacteria (test code = UA Few /HPF Bacteria) [facility] AND [id number] 06:21:00 Test Item Value Reference Range Interpretation Comments UA Color (test code = Yellow *NA*(07/23/22 UA Color) 1:21 AM) [facility] AND [id number] 06:21:00 Test Item Value Reference Range Interpretation Comments UA Turbidity (test code = Clear (07/23/22 1:21 UA Turbidity) AM) [facility] AND [id number] 06:21:00 Test Item Value Reference Range Interpretation Comments UA Spec Grav (test code = UA Spec 1.010 1 Grav) [facility] AND [id number] 06:21:00 Test Item Value Reference Range Interpretation Comments UA pH (test code = UA pH) 6.0 1 5.0-8.0 [facility] AND [id number] 06:21:00 Test Item Value Reference Range Interpretation Comments UA Protein (test code = UA Negative mg/dL Protein) [facility] AND [id number] 06:21:00 Test Item Value Reference Range Interpretation Comments UA Glucose (test code = UA Negative mg/dL Glucose) [facility] AND [id number] 06:21:00 Test Item Value Reference Range Interpretation Comments UA Ketones (test code = UA Negative mg/dL Ketones) [facility] AND [id number] 06:21:00 Test Item Value Reference Range Interpretation Comments UA Bili (test code = Negative *NA*(07/23/22 UA Bili) 1:21 AM) [facility] AND [id number] 06:21:00 Test Item Value Reference Range Interpretation Comments UA Blood (test code = Negative (07/23/22 1:21 UA Blood) AM) [facility] AND [id number] 06:21:00 Test Item Value Reference Range Interpretation Comments UA Urobilinogen (test code = UA 0.2 0.1-1.0 Urobilinogen) [facility] AND [id number] 06:21:00 Test Item Value Reference Range Interpretation Comments UA Nitrite (test code Negative (07/23/22 1:21 = UA Nitrite) AM) [facility] AND [id number] 06:21:00 Test Item Value Reference Range Interpretation Comments UA Leuk Est (test Negative (07/23/22 1:21 code = UA Leuk Est) AM) [facility] AND [id number] 06:21:00 Test Item Value Reference Range Interpretation Comments UA Sq Epi (test code = UA Sq Epi) Few /LPF [facility] AND [id number] 06:21:00 Test Item Value Reference Range Interpretation Comments UA WBC (test code = UA WBC) 3-5 /HPF [facility] AND [id number] 06:21:00 Test Item Value Reference Range Interpretation Comments UA RBC (test code = UA RBC) 0-2 /HPF [facility] AND [id number] 06:21:00 Test Item Value Reference Range Interpretation Comments UA Bacteria (test code = UA Few /HPF Bacteria) [facility] AND [id number] 06:21:00 Test Item Value Reference Range Interpretation Comments UA Color (test code = Yellow *NA*(07/23/22 UA Color) 1:21 AM) [facility] AND [id number] 06:21:00 Test Item Value Reference Range Interpretation Comments UA Turbidity (test code = Clear (07/23/22 1:21 UA Turbidity) AM) [facility] AND [id number] 06:21:00 Test Item Value Reference Range Interpretation Comments UA Spec Grav (test code = UA Spec 1.010 1 Grav) [facility] AND [id number] 06:21:00 Test Item Value Reference Range Interpretation Comments UA pH (test code = UA pH) 6.0 1 5.0-8.0 [facility] AND [id number] 06:21:00 Test Item Value Reference Range Interpretation Comments UA Protein (test code = UA Negative mg/dL Protein) [facility] AND [id number] 06:21:00 Test Item Value Reference Range Interpretation Comments UA Glucose (test code = UA Negative mg/dL Glucose) [facility] AND [id number] 06:21:00 Test Item Value Reference Range Interpretation Comments UA Ketones (test code = UA Negative mg/dL Ketones) [facility] AND [id number] 06:21:00 Test Item Value Reference Range Interpretation Comments UA Bili (test code = Negative *NA*(07/23/22 UA Bili) 1:21 AM) [facility] [id number] 06:21:00 Test Item Value Reference Range Interpretation Comments UA Blood (test code = Negative (07/23/22 1:21 UA Blood) AM) [facility] [id number] 06:21:00 Test Item Value Reference Range Interpretation Comments UA Urobilinogen (test code = UA 0.2 0.1-1.0 Urobilinogen) [facility] [id number] 06:21:00 Test Item Value Reference Range Interpretation Comments UA Nitrite (test code Negative (07/23/22 1:21 = UA Nitrite) AM) [facility] [id number] 06:21:00 Test Item Value Reference Range Interpretation Comments UA Leuk Est (test Negative (07/23/22 1:21 code = UA Leuk Est) AM) [facility] [id number] 06:21:00 Test Item Value Reference Range Interpretation Comments UA Sq Epi (test code = UA Sq Epi) Few /LPF [facility] [id number] 06:21:00 Test Item Value Reference Range Interpretation Comments UA WBC (test code = UA WBC) 3-5 /HPF [facility] [id number] 06:21:00 Test Item Value Reference Range Interpretation Comments UA RBC (test code = UA RBC) 0-2 /HPF [facility] [id number] 06:21:00 Test Item Value Reference Range Interpretation Comments UA Bacteria (test code = UA Few /HPF Bacteria) [facility] [id number] 06:21:00 Test Item Value Reference Range Interpretation Comments UA Color (test code = Yellow *NA*(07/23/22 UA Color) 1:21 AM) [facility] [id number] 06:21:00 Test Item Value Reference Range Interpretation Comments UA Turbidity (test code = Clear (07/23/22 1:21 UA Turbidity) AM) [facility] [id number] 06:21:00 Test Item Value Reference Range Interpretation Comments UA Spec Grav (test code = UA Spec 1.010 1 Grav) [facility] [id number] 06:21:00 Test Item Value Reference Range Interpretation Comments UA pH (test code = UA pH) 6.0 1 5.0-8.0 [facility] AND [id number] 06:21:00 Test Item Value Reference Range Interpretation Comments UA Protein (test code = UA Negative mg/dL Protein) [facility] AND [id number] 06:21:00 Test Item Value Reference Range Interpretation Comments UA Glucose (test code = UA Negative mg/dL Glucose) [facility] AND [id number] 06:21:00 Test Item Value Reference Range Interpretation Comments UA Ketones (test code = UA Negative mg/dL Ketones) [facility] AND [id number] 06:21:00 Test Item Value Reference Range Interpretation Comments UA Bili (test code = Negative *NA*(07/23/22 UA Bili) 1:21 AM) [facility] AND [id number] 06:21:00 Test Item Value Reference Range Interpretation Comments UA Blood (test code = Negative (07/23/22 1:21 UA Blood) AM) [facility] AND [id number] 06:21:00 Test Item Value Reference Range Interpretation Comments UA Urobilinogen (test code = UA 0.2 0.1-1.0 Urobilinogen) [facility] AND [id number] 06:21:00 Test Item Value Reference Range Interpretation Comments UA Nitrite (test code Negative (07/23/22 1:21 = UA Nitrite) AM) [facility] AND [id number] 06:21:00 Test Item Value Reference Range Interpretation Comments UA Leuk Est (test Negative (07/23/22 1:21 code = UA Leuk Est) AM) [facility] AND [id number] 06:21:00 Test Item Value Reference Range Interpretation Comments UA Sq Epi (test code = UA Sq Epi) Few /LPF [facility] AND [id number] 06:21:00 Test Item Value Reference Range Interpretation Comments UA WBC (test code = UA WBC) 3-5 /HPF [facility] AND [id number] 06:21:00 Test Item Value Reference Range Interpretation Comments UA RBC (test code = UA RBC) 0-2 /HPF [facility] AND [id number] 06:21:00 Test Item Value Reference Range Interpretation Comments UA Bacteria (test code = UA Few /HPF Bacteria) [facility] AND [id number] 06:21:00 Test Item Value Reference Range Interpretation Comments UA Color (test code = Yellow *NA*(07/23/22 UA Color) 1:21 AM) [facility] AND [id number] 06:21:00 Test Item Value Reference Range Interpretation Comments UA Turbidity (test code = Clear (07/23/22 1:21 UA Turbidity) AM) [facility] AND [id number] 06:21:00 Test Item Value Reference Range Interpretation Comments UA Spec Grav (test code = UA Spec 1.010 1 Grav) [facility] AND [id number] 06:21:00 Test Item Value Reference Range Interpretation Comments UA pH (test code = UA pH) 6.0 1 5.0-8.0 [facility] AND [id number] 06:21:00 Test Item Value Reference Range Interpretation Comments UA Protein (test code = UA Negative mg/dL Protein) [facility] AND [id number] 06:21:00 Test Item Value Reference Range Interpretation Comments UA Glucose (test code = UA Negative mg/dL Glucose) [facility] AND [id number] 06:21:00 Test Item Value Reference Range Interpretation Comments UA Ketones (test code = UA Negative mg/dL Ketones) [facility] AND [id number] 06:21:00 Test Item Value Reference Range Interpretation Comments UA Bili (test code = Negative *NA*(07/23/22 UA Bili) 1:21 AM) [facility] AND [id number] 06:21:00 Test Item Value Reference Range Interpretation Comments UA Blood (test code = Negative (07/23/22 1:21 UA Blood) AM) [facility] AND [id number] 06:21:00 Test Item Value Reference Range Interpretation Comments UA Urobilinogen (test code = UA 0.2 0.1-1.0 Urobilinogen) [facility] AND [id number] 06:21:00 Test Item Value Reference Range Interpretation Comments UA Nitrite (test code Negative (07/23/22 1:21 = UA Nitrite) AM) [facility] AND [id number] 06:21:00 Test Item Value Reference Range Interpretation Comments UA Leuk Est (test Negative (07/23/22 1:21 code = UA Leuk Est) AM) [facility] AND [id number] 06:21:00 Test Item Value Reference Range Interpretation Comments UA Sq Epi (test code = UA Sq Epi) Few /LPF [facility] AND [id number] 06:21:00 Test Item Value Reference Range Interpretation Comments UA WBC (test code = UA WBC) 3-5 /HPF [facility] AND [id number] 06:21:00 Test Item Value Reference Range Interpretation Comments UA RBC (test code = UA RBC) 0-2 /HPF [facility] AND [id number] 06:21:00 Test Item Value Reference Range Interpretation Comments UA Bacteria (test code = UA Few /HPF Bacteria) [facility] AND [id number] 06:21:00 Test Item Value Reference Range Interpretation Comments UA Color (test code = Yellow *NA*(07/23/22 UA Color) 1:21 AM) [facility] AND [id number] 06:21:00 Test Item Value Reference Range Interpretation Comments UA Turbidity (test code = Clear (07/23/22 1:21 UA Turbidity) AM) [facility] AND [id number] 06:21:00 Test Item Value Reference Range Interpretation Comments UA Spec Grav (test code = UA Spec 1.010 1 Grav) [facility] AND [id number] 06:21:00 Test Item Value Reference Range Interpretation Comments UA pH (test code = UA pH) 6.0 1 5.0-8.0 [facility] AND [id number] 06:21:00 Test Item Value Reference Range Interpretation Comments UA Protein (test code = UA Negative mg/dL Protein) [facility] AND [id number] 06:21:00 Test Item Value Reference Range Interpretation Comments UA Glucose (test code = UA Negative mg/dL Glucose) [facility] AND [id number] 06:21:00 Test Item Value Reference Range Interpretation Comments UA Ketones (test code = UA Negative mg/dL Ketones) [facility] AND [id number] 06:21:00 Test Item Value Reference Range Interpretation Comments UA Bili (test code = Negative *NA*(07/23/22 UA Bili) 1:21 AM) [facility] AND [id number] 06:21:00 Test Item Value Reference Range Interpretation Comments UA Blood (test code = Negative (07/23/22 1:21 UA Blood) AM) [facility] AND [id number] 06:21:00 Test Item Value Reference Range Interpretation Comments UA Urobilinogen (test code = UA 0.2 0.1-1.0 Urobilinogen) [facility] AND [id number] 06:21:00 Test Item Value Reference Range Interpretation Comments UA Nitrite (test code Negative (07/23/22 1:21 = UA Nitrite) AM) [facility] AND [id number] 06:21:00 Test Item Value Reference Range Interpretation Comments UA Leuk Est (test Negative (07/23/22 1:21 code = UA Leuk Est) AM) [facility] AND [id number] 06:21:00 Test Item Value Reference Range Interpretation Comments UA Sq Epi (test code = UA Sq Epi) Few /LPF [facility] AND [id number] 06:21:00 Test Item Value Reference Range Interpretation Comments UA WBC (test code = UA WBC) 3-5 /HPF [facility] AND [id number] 06:21:00 Test Item Value Reference Range Interpretation Comments UA RBC (test code = UA RBC) 0-2 /HPF [facility] AND [id number] 06:21:00 Test Item Value Reference Range Interpretation Comments UA Bacteria (test code = UA Few /HPF Bacteria) [facility] AND [id number] 06:21:00 Test Item Value Reference Range Interpretation Comments UA Color (test code = Yellow *NA*(07/23/22 UA Color) 1:21 AM) [facility] AND [id number] 06:21:00 Test Item Value Reference Range Interpretation Comments UA Turbidity (test code = Clear (07/23/22 1:21 UA Turbidity) AM) [facility] AND [id number] 06:21:00 Test Item Value Reference Range Interpretation Comments UA Spec Grav (test code = UA Spec 1.010 1 Grav) [facility] AND [id number] 06:21:00 Test Item Value Reference Range Interpretation Comments UA pH (test code = UA pH) 6.0 1 5.0-8.0 [facility] AND [id number] 06:21:00 Test Item Value Reference Range Interpretation Comments UA Protein (test code = UA Negative mg/dL Protein) [facility] AND [id number] 06:21:00 Test Item Value Reference Range Interpretation Comments UA Glucose (test code = UA Negative mg/dL Glucose) [facility] AND [id number] 06:21:00 Test Item Value Reference Range Interpretation Comments UA Ketones (test code = UA Negative mg/dL Ketones) [facility] AND [id number] 06:21:00 Test Item Value Reference Range Interpretation Comments UA Bili (test code = Negative *NA*(07/23/22 UA Bili) 1:21 AM) [facility] AND [id number] 06:21:00 Test Item Value Reference Range Interpretation Comments UA Blood (test code = Negative (07/23/22 1:21 UA Blood) AM) [facility] AND [id number] 06:21:00 Test Item Value Reference Range Interpretation Comments UA Urobilinogen (test code = UA 0.2 0.1-1.0 Urobilinogen) [facility] AND [id number] 06:21:00 Test Item Value Reference Range Interpretation Comments UA Nitrite (test code Negative (07/23/22 1:21 = UA Nitrite) AM) [facility] AND [id number] 06:21:00 Test Item Value Reference Range Interpretation Comments UA Leuk Est (test Negative (07/23/22 1:21 code = UA Leuk Est) AM) [facility] AND [id number] 06:21:00 Test Item Value Reference Range Interpretation Comments UA Sq Epi (test code = UA Sq Epi) Few /LPF [facility] AND [id number] 06:21:00 Test Item Value Reference Range Interpretation Comments UA WBC (test code = UA WBC) 3-5 /HPF [facility] AND [id number] 06:21:00 Test Item Value Reference Range Interpretation Comments UA RBC (test code = UA RBC) 0-2 /HPF [facility] AND [id number] 06:21:00 Test Item Value Reference Range Interpretation Comments UA Bacteria (test code = UA Few /HPF Bacteria) [facility] AND [id number] 06:21:00 Test Item Value Reference Range Interpretation Comments UA Color (test code = Yellow *NA*(07/23/22 UA Color) 1:21 AM) [facility] AND [id number] 06:21:00 Test Item Value Reference Range Interpretation Comments UA Turbidity (test code = Clear (07/23/22 1:21 UA Turbidity) AM) [facility] AND [id number] 06:21:00 Test Item Value Reference Range Interpretation Comments UA Spec Grav (test code = UA Spec 1.010 1 Grav) [facility] AND [id number] 06:21:00 Test Item Value Reference Range Interpretation Comments UA pH (test code = UA pH) 6.0 1 5.0-8.0 [facility] AND [id number] 06:21:00 Test Item Value Reference Range Interpretation Comments UA Protein (test code = UA Negative mg/dL Protein) [facility] AND [id number] 06:21:00 Test Item Value Reference Range Interpretation Comments UA Glucose (test code = UA Negative mg/dL Glucose) [facility] AND [id number] 06:21:00 Test Item Value Reference Range Interpretation Comments UA Ketones (test code = UA Negative mg/dL Ketones) [facility] AND [id number] 06:21:00 Test Item Value Reference Range Interpretation Comments UA Bili (test code = Negative *NA*(07/23/22 UA Bili) 1:21 AM) [facility] AND [id number] 06:21:00 Test Item Value Reference Range Interpretation Comments UA Blood (test code = Negative (07/23/22 1:21 UA Blood) AM) [facility] AND [id number] 06:21:00 Test Item Value Reference Range Interpretation Comments UA Urobilinogen (test code = UA 0.2 0.1-1.0 Urobilinogen) [facility] AND [id number] 06:21:00 Test Item Value Reference Range Interpretation Comments UA Nitrite (test code Negative (07/23/22 1:21 = UA Nitrite) AM) [facility] AND [id number] 06:21:00 Test Item Value Reference Range Interpretation Comments UA Leuk Est (test Negative (07/23/22 1:21 code = UA Leuk Est) AM) [facility] AND [id number] 06:21:00 Test Item Value Reference Range Interpretation Comments UA Sq Epi (test code = UA Sq Epi) Few /LPF [facility] AND [id number] 06:21:00 Test Item Value Reference Range Interpretation Comments UA WBC (test code = UA WBC) 3-5 /HPF [facility] AND [id number] 06:21:00 Test Item Value Reference Range Interpretation Comments UA RBC (test code = UA RBC) 0-2 /HPF [facility] AND [id number] 06:21:00 Test Item Value Reference Range Interpretation Comments UA Bacteria (test code = UA Few /HPF Bacteria) [facility] AND [id number] 06:21:00 Test Item Value Reference Range Interpretation Comments UA Color (test code = Yellow *NA*(07/23/22 UA Color) 1:21 AM) [facility] AND [id number] 06:21:00 Test Item Value Reference Range Interpretation Comments UA Turbidity (test code = Clear (07/23/22 1:21 UA Turbidity) AM) [facility] AND [id number] 06:21:00 Test Item Value Reference Range Interpretation Comments UA Spec Grav (test code = UA Spec 1.010 1 Grav) [facility] AND [id number] 06:21:00 Test Item Value Reference Range Interpretation Comments UA pH (test code = UA pH) 6.0 1 5.0-8.0 [facility] AND [id number] 06:21:00 Test Item Value Reference Range Interpretation Comments UA Protein (test code = UA Negative mg/dL Protein) [facility] AND [id number] 06:21:00 Test Item Value Reference Range Interpretation Comments UA Glucose (test code = UA Negative mg/dL Glucose) [facility] AND [id number] 06:21:00 Test Item Value Reference Range Interpretation Comments UA Ketones (test code = UA Negative mg/dL Ketones) [facility] [id number] 06:21:00 Test Item Value Reference Range Interpretation Comments UA Bili (test code = Negative *NA*(07/23/22 UA Bili) 1:21 AM) [facility] [id number] 06:21:00 Test Item Value Reference Range Interpretation Comments UA Blood (test code = Negative (07/23/22 1:21 UA Blood) AM) [facility] [id number] 06:21:00 Test Item Value Reference Range Interpretation Comments UA Urobilinogen (test code = UA 0.2 0.1-1.0 Urobilinogen) [facility] [id number] 06:21:00 Test Item Value Reference Range Interpretation Comments UA Nitrite (test code Negative (07/23/22 1:21 = UA Nitrite) AM) [facility] [id number] 06:21:00 Test Item Value Reference Range Interpretation Comments UA Leuk Est (test Negative (07/23/22 1:21 code = UA Leuk Est) AM) [facility] [id number] 06:21:00 Test Item Value Reference Range Interpretation Comments UA Sq Epi (test code = UA Sq Epi) Few /LPF [facility] [id number] 06:21:00 Test Item Value Reference Range Interpretation Comments UA WBC (test code = UA WBC) 3-5 /HPF [facility] [id number] 06:21:00 Test Item Value Reference Range Interpretation Comments UA RBC (test code = UA RBC) 0-2 /HPF [facility] [id number] 06:21:00 Test Item Value Reference Range Interpretation Comments UA Bacteria (test code = UA Few /HPF Bacteria) [facility] [id number] 06:21:00 Test Item Value Reference Range Interpretation Comments UA Color (test code = Yellow *NA*(07/23/22 UA Color) 1:21 AM) [facility] [id number] 06:21:00 Test Item Value Reference Range Interpretation Comments UA Turbidity (test code = Clear (07/23/22 1:21 UA Turbidity) AM) [facility] [id number] 06:21:00 Test Item Value Reference Range Interpretation Comments UA Spec Grav (test code = UA Spec 1.010 1 Grav) [facility] AND [id number] 06:21:00 Test Item Value Reference Range Interpretation Comments UA pH (test code = UA pH) 6.0 1 5.0-8.0 [facility] AND [id number] 06:21:00 Test Item Value Reference Range Interpretation Comments UA Protein (test code = UA Negative mg/dL Protein) [facility] AND [id number] 06:21:00 Test Item Value Reference Range Interpretation Comments UA Glucose (test code = UA Negative mg/dL Glucose) [facility] AND [id number] 06:21:00 Test Item Value Reference Range Interpretation Comments UA Ketones (test code = UA Negative mg/dL Ketones) [facility] AND [id number] 06:21:00 Test Item Value Reference Range Interpretation Comments UA Bili (test code = Negative *NA*(07/23/22 UA Bili) 1:21 AM) [facility] AND [id number] 06:21:00 Test Item Value Reference Range Interpretation Comments UA Blood (test code = Negative (07/23/22 1:21 UA Blood) AM) [facility] AND [id number] 06:21:00 Test Item Value Reference Range Interpretation Comments UA Urobilinogen (test code = UA 0.2 0.1-1.0 Urobilinogen) [facility] AND [id number] 06:21:00 Test Item Value Reference Range Interpretation Comments UA Nitrite (test code Negative (07/23/22 1:21 = UA Nitrite) AM) [facility] AND [id number] 06:21:00 Test Item Value Reference Range Interpretation Comments UA Leuk Est (test Negative (07/23/22 1:21 code = UA Leuk Est) AM) [facility] AND [id number] 06:21:00 Test Item Value Reference Range Interpretation Comments UA Sq Epi (test code = UA Sq Epi) Few /LPF [facility] AND [id number] 06:21:00 Test Item Value Reference Range Interpretation Comments UA WBC (test code = UA WBC) 3-5 /HPF [facility] AND [id number] 06:21:00 Test Item Value Reference Range Interpretation Comments UA RBC (test code = UA RBC) 0-2 /HPF [facility] AND [id number] 06:21:00 Test Item Value Reference Range Interpretation Comments UA Bacteria (test code = UA Few /HPF Bacteria) [place] 542562-09-11 08:47:00 Test Item Value Reference Range Interpretation Comments Glucose Lvl (test code = Glucose Lvl) 80 70-99 [place] 542562-09-11 08:47:00 Test Item Value Reference Range Interpretation Comments BUN (test code = BUN) 37 7-22 [place] 542562-09-11 08:47:00 Test Item Value Reference Range Interpretation Comments Creatinine Lvl (test code = Creatinine 1.38 0.50-1.40 Lvl) [facility]2022-09-11 08:47:00 Test Item Value Reference Range Interpretation Comments Sodium Lvl (test code = Sodium Lvl) 136 135-145 [place] 542562-09-11 08:47:00 Test Item Value Reference Range Interpretation Comments Potassium Lvl (test code = Potassium 5.3 3.5-5.1 Lvl) [place] 542562-09-11 08:47:00 Test Item Value Reference Range Interpretation Comments Chloride Lvl (test code = Chloride Lvl) 105 95-109 [place] 542562-09-11 08:47:00 Test Item Value Reference Range Interpretation Comments CO2 (test code = CO2) 26 24-32 [place] 542562-09-11 08:47:00 Test Item Value Reference Range Interpretation Comments AGAP (test code = AGAP) 10.3 10.0-20.0 [place] 542562-09-11 08:47:00 Test Item Value Reference Range Interpretation Comments Calcium Lvl (test code = Calcium Lvl) 8.9 8.5-10.5 [place] 542562-09-11 08:47:00 Test Item Value Reference Range Interpretation Comments eGFR (test code = eGFR) 38 [place] 542562-09-11 08:47:00 Test Item Value Reference Range Interpretation Comments Glucose Lvl (test code = Glucose Lvl) 80 70-99 [place] 542562-09-11 08:47:00 Test Item Value Reference Range Interpretation Comments BUN (test code = BUN) 37 7-22 [place] 542562-09-11 08:47:00 Test Item Value Reference Range Interpretation Comments Creatinine Lvl (test code = Creatinine 1.38 0.50-1.40 Lvl) [place] 542562-09-11 08:47:00 Test Item Value Reference Range Interpretation Comments Sodium Lvl (test code = Sodium Lvl) 136 135-145 [place] 542562-09-11 08:47:00 Test Item Value Reference Range Interpretation Comments Potassium Lvl (test code = Potassium 5.3 3.5-5.1 Lvl) [place] 542562-09-11 08:47:00 Test Item Value Reference Range Interpretation Comments Chloride Lvl (test code = Chloride Lvl) 105 95-109 [place] 542562-09-11 08:47:00 Test Item Value Reference Range Interpretation Comments CO2 (test code = CO2) 26 24-32 [place] 542562-09-11 08:47:00 Test Item Value Reference Range Interpretation Comments AGAP (test code = AGAP) 10.3 10.0-20.0 [place] 542562-09-11 08:47:00 Test Item Value Reference Range Interpretation Comments Calcium Lvl (test code = Calcium Lvl) 8.9 8.5-10.5 [place] 542562-09-11 08:47:00 Test Item Value Reference Range Interpretation Comments eGFR (test code = eGFR) 38 [place] 542562-09-11 08:47:00 Test Item Value Reference Range Interpretation Comments Glucose Lvl (test code = Glucose Lvl) 80 70-99 [place] 542562-09-11 08:47:00 Test Item Value Reference Range Interpretation Comments BUN (test code = BUN) 37 7-22 [place] 542562-09-11 08:47:00 Test Item Value Reference Range Interpretation Comments Creatinine Lvl (test code = Creatinine 1.38 0.50-1.40 Lvl) [place] 542562-09-11 08:47:00 Test Item Value Reference Range Interpretation Comments Sodium Lvl (test code = Sodium Lvl) 136 135-145 [place] 542562-09-11 08:47:00 Test Item Value Reference Range Interpretation Comments Potassium Lvl (test code = Potassium 5.3 3.5-5.1 Lvl) [place] 542562-09-11 08:47:00 Test Item Value Reference Range Interpretation Comments Chloride Lvl (test code = Chloride Lvl) 105 95-109 [place] 542562-09-11 08:47:00 Test Item Value Reference Range Interpretation Comments CO2 (test code = CO2) 26 24-32 [place] 542562-09-11 08:47:00 Test Item Value Reference Range Interpretation Comments AGAP (test code = AGAP) 10.3 10.0-20.0 [place] 542562-09-11 08:47:00 Test Item Value Reference Range Interpretation Comments Calcium Lvl (test code = Calcium Lvl) 8.9 8.5-10.5 [place] 542562-09-11 08:47:00 Test Item Value Reference Range Interpretation Comments eGFR (test code = eGFR) 38 [place] 542562-09-11 08:47:00 Test Item Value Reference Range Interpretation Comments Glucose Lvl (test code = Glucose Lvl) 80 70-99 [place] 542562-09-11 08:47:00 Test Item Value Reference Range Interpretation Comments BUN (test code = BUN) 37 7-22 [place] 542562-09-11 08:47:00 Test Item Value Reference Range Interpretation Comments Creatinine Lvl (test code = Creatinine 1.38 0.50-1.40 Lvl) [place] 542562-09-11 08:47:00 Test Item Value Reference Range Interpretation Comments Sodium Lvl (test code = Sodium Lvl) 136 135-145 [place] 542562-09-11 08:47:00 Test Item Value Reference Range Interpretation Comments Potassium Lvl (test code = Potassium 5.3 3.5-5.1 Lvl) [place] 542562-09-11 08:47:00 Test Item Value Reference Range Interpretation Comments Chloride Lvl (test code = Chloride Lvl) 105 95-109 [place] 542562-09-11 08:47:00 Test Item Value Reference Range Interpretation Comments CO2 (test code = CO2) 26 24-32 [place] 542562-09-11 08:47:00 Test Item Value Reference Range Interpretation Comments AGAP (test code = AGAP) 10.3 10.0-20.0 [place] 542562-09-11 08:47:00 Test Item Value Reference Range Interpretation Comments Calcium Lvl (test code = Calcium Lvl) 8.9 8.5-10.5 [place] 542562-09-11 08:47:00 Test Item Value Reference Range Interpretation Comments eGFR (test code = eGFR) 38 [place] 542562-09-11 08:47:00 Test Item Value Reference Range Interpretation Comments Glucose Lvl (test code = Glucose Lvl) 80 70-99 [place] 542562-09-11 08:47:00 Test Item Value Reference Range Interpretation Comments BUN (test code = BUN) 37 7-22 [place] 542562-09-11 08:47:00 Test Item Value Reference Range Interpretation Comments Creatinine Lvl (test code = Creatinine 1.38 0.50-1.40 Lvl) [place] 542562-09-11 08:47:00 Test Item Value Reference Range Interpretation Comments Sodium Lvl (test code = Sodium Lvl) 136 135-145 [place] 542562-09-11 08:47:00 Test Item Value Reference Range Interpretation Comments Potassium Lvl (test code = Potassium 5.3 3.5-5.1 Lvl) [place] 542562-09-11 08:47:00 Test Item Value Reference Range Interpretation Comments Chloride Lvl (test code = Chloride Lvl) 105 95-109 [place] 542562-09-11 08:47:00 Test Item Value Reference Range Interpretation Comments CO2 (test code = CO2) 26 24-32 [place] 542562-09-11 08:47:00 Test Item Value Reference Range Interpretation Comments AGAP (test code = AGAP) 10.3 10.0-20.0 [place] 542562-09-11 08:47:00 Test Item Value Reference Range Interpretation Comments Calcium Lvl (test code = Calcium Lvl) 8.9 8.5-10.5 [place] 542562-09-11 08:47:00 Test Item Value Reference Range Interpretation Comments eGFR (test code = eGFR) 38 [place] 542562-09-11 08:47:00 Test Item Value Reference Range Interpretation Comments Glucose Lvl (test code = Glucose Lvl) 80 70-99 [place] 542562-09-11 08:47:00 Test Item Value Reference Range Interpretation Comments BUN (test code = BUN) 37 7-22 [place] 542562-09-11 08:47:00 Test Item Value Reference Range Interpretation Comments Creatinine Lvl (test code = Creatinine 1.38 0.50-1.40 Lvl) [place] 542562-09-11 08:47:00 Test Item Value Reference Range Interpretation Comments Sodium Lvl (test code = Sodium Lvl) 136 135-145 [place] 542562-09-11 08:47:00 Test Item Value Reference Range Interpretation Comments Potassium Lvl (test code = Potassium 5.3 3.5-5.1 Lvl) [place] 542562-09-11 08:47:00 Test Item Value Reference Range Interpretation Comments Chloride Lvl (test code = Chloride Lvl) 105 95-109 [place] 542562-09-11 08:47:00 Test Item Value Reference Range Interpretation Comments CO2 (test code = CO2) 26 24-32 [facility]2022-09-11 08:47:00 Test Item Value Reference Range Interpretation Comments AGAP (test code = AGAP) 10.3 10.0-20.0 [place] 542562-09-11 08:47:00 Test Item Value Reference Range Interpretation Comments Calcium Lvl (test code = Calcium Lvl) 8.9 8.5-10.5 [place] 542562-09-11 08:47:00 Test Item Value Reference Range Interpretation Comments eGFR (test code = eGFR) 38 [place] 542562-09-11 08:47:00 Test Item Value Reference Range Interpretation Comments Glucose Lvl (test code = Glucose Lvl) 80 70-99 [place] 542562-09-11 08:47:00 Test Item Value Reference Range Interpretation Comments BUN (test code = BUN) 37 7-22 [place] 542562-09-11 08:47:00 Test Item Value Reference Range Interpretation Comments Creatinine Lvl (test code = Creatinine 1.38 0.50-1.40 Lvl) [place] 542562-09-11 08:47:00 Test Item Value Reference Range Interpretation Comments Sodium Lvl (test code = Sodium Lvl) 136 135-145 [place] 542562-09-11 08:47:00 Test Item Value Reference Range Interpretation Comments Potassium Lvl (test code = Potassium 5.3 3.5-5.1 Lvl) [place] 542562-09-11 08:47:00 Test Item Value Reference Range Interpretation Comments Chloride Lvl (test code = Chloride Lvl) 105 95-109 [place] 542562-09-11 08:47:00 Test Item Value Reference Range Interpretation Comments CO2 (test code = CO2) 26 24-32 [place] 542562-09-11 08:47:00 Test Item Value Reference Range Interpretation Comments AGAP (test code = AGAP) 10.3 10.0-20.0 [place] 542562-09-11 08:47:00 Test Item Value Reference Range Interpretation Comments Calcium Lvl (test code = Calcium Lvl) 8.9 8.5-10.5 [place] 542562-09-11 08:47:00 Test Item Value Reference Range Interpretation Comments eGFR (test code = eGFR) 38 [place] 542562-09-11 08:47:00 Test Item Value Reference Range Interpretation Comments Glucose Lvl (test code = Glucose Lvl) 80 70-99 [place] 542562-09-11 08:47:00 Test Item Value Reference Range Interpretation Comments BUN (test code = BUN) 37 7-22 [place] 542562-09-11 08:47:00 Test Item Value Reference Range Interpretation Comments Creatinine Lvl (test code = Creatinine 1.38 0.50-1.40 Lvl) [place] 542562-09-11 08:47:00 Test Item Value Reference Range Interpretation Comments Sodium Lvl (test code = Sodium Lvl) 136 135-145 [place] 542562-09-11 08:47:00 Test Item Value Reference Range Interpretation Comments Potassium Lvl (test code = Potassium 5.3 3.5-5.1 Lvl) [place] 542562-09-11 08:47:00 Test Item Value Reference Range Interpretation Comments Chloride Lvl (test code = Chloride Lvl) 105 95-109 [place] 542562-09-11 08:47:00 Test Item Value Reference Range Interpretation Comments CO2 (test code = CO2) 26 24-32 [place] 542562-09-11 08:47:00 Test Item Value Reference Range Interpretation Comments AGAP (test code = AGAP) 10.3 10.0-20.0 [place] 542562-09-11 08:47:00 Test Item Value Reference Range Interpretation Comments Calcium Lvl (test code = Calcium Lvl) 8.9 8.5-10.5 [place] 542562-09-11 08:47:00 Test Item Value Reference Range Interpretation Comments eGFR (test code = eGFR) 38 [place] 542562-09-11 08:47:00 Test Item Value Reference Range Interpretation Comments Glucose Lvl (test code = Glucose Lvl) 80 70-99 [place] 542562-09-11 08:47:00 Test Item Value Reference Range Interpretation Comments BUN (test code = BUN) 37 7-22 [place] 542562-09-11 08:47:00 Test Item Value Reference Range Interpretation Comments Creatinine Lvl (test code = Creatinine 1.38 0.50-1.40 Lvl) [place] 542562-09-11 08:47:00 Test Item Value Reference Range Interpretation Comments Sodium Lvl (test code = Sodium Lvl) 136 135-145 [place] 542562-09-11 08:47:00 Test Item Value Reference Range Interpretation Comments Potassium Lvl (test code = Potassium 5.3 3.5-5.1 Lvl) [place] 542562-09-11 08:47:00 Test Item Value Reference Range Interpretation Comments Chloride Lvl (test code = Chloride Lvl) 105 95-109 [place] 542562-09-11 08:47:00 Test Item Value Reference Range Interpretation Comments CO2 (test code = CO2) 26 24-32 [place] 542562-09-11 08:47:00 Test Item Value Reference Range Interpretation Comments AGAP (test code = AGAP) 10.3 10.0-20.0 [place] 542562-09-11 08:47:00 Test Item Value Reference Range Interpretation Comments Calcium Lvl (test code = Calcium Lvl) 8.9 8.5-10.5 [place] 542562-09-11 08:47:00 Test Item Value Reference Range Interpretation Comments eGFR (test code = eGFR) 38 [place] 542562-09-11 08:47:00 Test Item Value Reference Range Interpretation Comments Glucose Lvl (test code = Glucose Lvl) 80 70-99 [place] 542562-09-11 08:47:00 Test Item Value Reference Range Interpretation Comments BUN (test code = BUN) 37 7-22 [place] 542562-09-11 08:47:00 Test Item Value Reference Range Interpretation Comments Creatinine Lvl (test code = Creatinine 1.38 0.50-1.40 Lvl) [place] 542562-09-11 08:47:00 Test Item Value Reference Range Interpretation Comments Sodium Lvl (test code = Sodium Lvl) 136 135-145 [place] 542562-09-11 08:47:00 Test Item Value Reference Range Interpretation Comments Potassium Lvl (test code = Potassium 5.3 3.5-5.1 Lvl) [place] 542562-09-11 08:47:00 Test Item Value Reference Range Interpretation Comments Chloride Lvl (test code = Chloride Lvl) 105 95-109 [place] 542562-09-11 08:47:00 Test Item Value Reference Range Interpretation Comments CO2 (test code = CO2) 26 24-32 [place] 542562-09-11 08:47:00 Test Item Value Reference Range Interpretation Comments AGAP (test code = AGAP) 10.3 10.0-20.0 [place] 542562-09-11 08:47:00 Test Item Value Reference Range Interpretation Comments Calcium Lvl (test code = Calcium Lvl) 8.9 8.5-10.5 [place] 542562-09-11 08:47:00 Test Item Value Reference Range Interpretation Comments eGFR (test code = eGFR) 38 [place] 542562-09-11 08:47:00 Test Item Value Reference Range Interpretation Comments Glucose Lvl (test code = Glucose Lvl) 80 70-99 [place] 542562-09-11 08:47:00 Test Item Value Reference Range Interpretation Comments BUN (test code = BUN) 37 7-22 [place] 542562-09-11 08:47:00 Test Item Value Reference Range Interpretation Comments Creatinine Lvl (test code = Creatinine 1.38 0.50-1.40 Lvl) [place] 542562-09-11 08:47:00 Test Item Value Reference Range Interpretation Comments Sodium Lvl (test code = Sodium Lvl) 136 135-145 [place] 542562-09-11 08:47:00 Test Item Value Reference Range Interpretation Comments Potassium Lvl (test code = Potassium 5.3 3.5-5.1 Lvl) [place] 542562-09-11 08:47:00 Test Item Value Reference Range Interpretation Comments Chloride Lvl (test code = Chloride Lvl) 105 95-109 [place] 542562-09-11 08:47:00 Test Item Value Reference Range Interpretation Comments CO2 (test code = CO2) 26 24-32 [place] 542562-09-11 08:47:00 Test Item Value Reference Range Interpretation Comments AGAP (test code = AGAP) 10.3 10.0-20.0 [facility]2022-09-11 08:47:00 Test Item Value Reference Range Interpretation Comments Calcium Lvl (test code = Calcium Lvl) 8.9 8.5-10.5 [place] 542562-09-11 08:47:00 Test Item Value Reference Range Interpretation Comments eGFR (test code = eGFR) 38 [facility]2022-09-10 18:24:00 Test Item Value Reference Range Interpretation Comments Glucose Lvl (test code = Glucose Lvl) 68 70-99 [place] 542562-09-10 18:24:00 Test Item Value Reference Range Interpretation Comments BUN (test code = BUN) 31 7-22 [place] 542562-09-10 18:24:00 Test Item Value Reference Range Interpretation Comments Creatinine Lvl (test code = Creatinine 0.89 0.50-1.40 Lvl) [facility]2022-09-10 18:24:00 Test Item Value Reference Range Interpretation Comments Sodium Lvl (test code = Sodium Lvl) 142 135-145 [place] 542562-09-10 18:24:00 Test Item Value Reference Range Interpretation Comments Potassium Lvl (test code = Potassium 3.9 3.5-5.1 Lvl) [facility]2022-09-10 18:24:00 Test Item Value Reference Range Interpretation Comments Chloride Lvl (test code = Chloride Lvl) 116 95-109 [facility]2022-09-10 18:24:00 Test Item Value Reference Range Interpretation Comments CO2 (test code = CO2) [place] 542562-09-10 18:24:00 Test Item Value Reference Range Interpretation Comments AGAP (test code = AGAP) 8.9 10.0-20.0 [place] 542562-09-10 18:24:00 Test Item Value Reference Range Interpretation Comments Calcium Lvl (test code = Calcium Lvl) 6.1 8.5-10.5 [facility]2022-09-10 18:24:00 Test Item Value Reference Range Interpretation Comments eGFR (test code = eGFR) 64 [facility]2022-09-10 18:24:00 Test Item Value Reference Range Interpretation Comments Glucose Lvl (test code = Glucose Lvl) 68 70-99 [facility]2022-09-10 18:24:00 Test Item Value Reference Range Interpretation Comments BUN (test code = BUN) 31 7-22 [facility]2022-09-10 18:24:00 Test Item Value Reference Range Interpretation Comments Creatinine Lvl (test code = Creatinine 0.89 0.50-1.40 Lvl) [facility]2022-09-10 18:24:00 Test Item Value Reference Range Interpretation Comments Sodium Lvl (test code = Sodium Lvl) 142 135-145 [place] 542562-09-10 18:24:00 Test Item Value Reference Range Interpretation Comments Potassium Lvl (test code = Potassium 3.9 3.5-5.1 Lvl) [facility]2022-09-10 18:24:00 Test Item Value Reference Range Interpretation Comments Chloride Lvl (test code = Chloride Lvl) 116 95-109 [place] 542562-09-10 18:24:00 Test Item Value Reference Range Interpretation Comments CO2 (test code = CO2) - [place] 542562-09-10 18:24:00 Test Item Value Reference Range Interpretation Comments AGAP (test code = AGAP) 8.9 10.0-20.0 [facility]2022-09-10 18:24:00 Test Item Value Reference Range Interpretation Comments Calcium Lvl (test code = Calcium Lvl) 6.1 8.5-10.5 [facility]2022-09-10 18:24:00 Test Item Value Reference Range Interpretation Comments eGFR (test code = eGFR) 64 [facility]2022-09-10 18:24:00 Test Item Value Reference Range Interpretation Comments Glucose Lvl (test code = Glucose Lvl) 68 70-99 [place] 542562-09-10 18:24:00 Test Item Value Reference Range Interpretation Comments BUN (test code = BUN) 31 7-22 [facility]2022-09-10 18:24:00 Test Item Value Reference Range Interpretation Comments Creatinine Lvl (test code = Creatinine 0.89 0.50-1.40 Lvl) [facility]2022-09-10 18:24:00 Test Item Value Reference Range Interpretation Comments Sodium Lvl (test code = Sodium Lvl) 142 135-145 [facility]2022-09-10 18:24:00 Test Item Value Reference Range Interpretation Comments Potassium Lvl (test code = Potassium 3.9 3.5-5.1 Lvl) [facility]2022-09-10 18:24:00 Test Item Value Reference Range Interpretation Comments Chloride Lvl (test code = Chloride Lvl) 116 95-109 [facility]2022-09-10 18:24:00 Test Item Value Reference Range Interpretation Comments CO2 (test code = CO2) 21 24-32 [facility]2022-09-10 18:24:00 Test Item Value Reference Range Interpretation Comments AGAP (test code = AGAP) 8.9 10.0-20.0 [facility]2022-09-10 18:24:00 Test Item Value Reference Range Interpretation Comments Calcium Lvl (test code = Calcium Lvl) 6.1 8.5-10.5 [facility]2022-09-10 18:24:00 Test Item Value Reference Range Interpretation Comments eGFR (test code = eGFR) 64 [place] 542562-09-10 18:24:00 Test Item Value Reference Range Interpretation Comments Glucose Lvl (test code = Glucose Lvl) 68 70- [facility]2022-09-10 18:24:00 Test Item Value Reference Range Interpretation Comments BUN (test code = BUN) 31 7- [facility]2022-09-10 18:24:00 Test Item Value Reference Range Interpretation Comments Creatinine Lvl (test code = Creatinine 0.89 0.50-1.40 Lvl) [facility]2022-09-10 18:24:00 Test Item Value Reference Range Interpretation Comments Sodium Lvl (test code = Sodium Lvl) 142 135-145 [facility]2022-09-10 18:24:00 Test Item Value Reference Range Interpretation Comments Potassium Lvl (test code = Potassium 3.9 3.5-5.1 Lvl) [facility]2022-09-10 18:24:00 Test Item Value Reference Range Interpretation Comments Chloride Lvl (test code = Chloride Lvl) 116 95-109 [facility]2022-09-10 18:24:00 Test Item Value Reference Range Interpretation Comments CO2 (test code = CO2) 21 24-32 [facility]2022-09-10 18:24:00 Test Item Value Reference Range Interpretation Comments AGAP (test code = AGAP) 8.9 10.0-20.0 [facility]2022-09-10 18:24:00 Test Item Value Reference Range Interpretation Comments Calcium Lvl (test code = Calcium Lvl) 6.1 8.5-10.5 [facility]2022-09-10 18:24:00 Test Item Value Reference Range Interpretation Comments eGFR (test code = eGFR) 64 [place] 542562-09-10 18:24:00 Test Item Value Reference Range Interpretation Comments Glucose Lvl (test code = Glucose Lvl) 68 70-99 [facility]2022-09-10 18:24:00 Test Item Value Reference Range Interpretation Comments BUN (test code = BUN) 31 7- [facility]2022-09-10 18:24:00 Test Item Value Reference Range Interpretation Comments Creatinine Lvl (test code = Creatinine 0.89 0.50-1.40 Lvl) [place] 542562-09-10 18:24:00 Test Item Value Reference Range Interpretation Comments Sodium Lvl (test code = Sodium Lvl) 142 135-145 [place] 542562-09-10 18:24:00 Test Item Value Reference Range Interpretation Comments Potassium Lvl (test code = Potassium 3.9 3.5-5.1 Lvl) [place] 542562-09-10 18:24:00 Test Item Value Reference Range Interpretation Comments Chloride Lvl (test code = Chloride Lvl) 116 95-109 [place] 542562-09-10 18:24:00 Test Item Value Reference Range Interpretation Comments CO2 (test code = CO2) 21 24-32 [place] 542562-09-10 18:24:00 Test Item Value Reference Range Interpretation Comments AGAP (test code = AGAP) 8.9 10.0-20.0 [place] 542562-09-10 18:24:00 Test Item Value Reference Range Interpretation Comments Calcium Lvl (test code = Calcium Lvl) 6.1 8.5-10.5 [place] 542562-09-10 18:24:00 Test Item Value Reference Range Interpretation Comments eGFR (test code = eGFR) 64 [place] 542562-09-10 18:24:00 Test Item Value Reference Range Interpretation Comments Glucose Lvl (test code = Glucose Lvl) 68 70-99 [place] 542562-09-10 18:24:00 Test Item Value Reference Range Interpretation Comments BUN (test code = BUN) 31 7-22 [place] 542562-09-10 18:24:00 Test Item Value Reference Range Interpretation Comments Creatinine Lvl (test code = Creatinine 0.89 0.50-1.40 Lvl) [place] 542562-09-10 18:24:00 Test Item Value Reference Range Interpretation Comments Sodium Lvl (test code = Sodium Lvl) 142 135-145 [place] 542562-09-10 18:24:00 Test Item Value Reference Range Interpretation Comments Potassium Lvl (test code = Potassium 3.9 3.5-5.1 Lvl) [place] 542562-09-10 18:24:00 Test Item Value Reference Range Interpretation Comments Chloride Lvl (test code = Chloride Lvl) 116 95-109 [facility]2022-09-10 18:24:00 Test Item Value Reference Range Interpretation Comments CO2 (test code = CO2) - [place] 542562-09-10 18:24:00 Test Item Value Reference Range Interpretation Comments AGAP (test code = AGAP) 8.9 10.0-20.0 [place] 542562-09-10 18:24:00 Test Item Value Reference Range Interpretation Comments Calcium Lvl (test code = Calcium Lvl) 6.1 8.5-10.5 [facility]2022-09-10 18:24:00 Test Item Value Reference Range Interpretation Comments eGFR (test code = eGFR) 64 [facility]2022-09-10 18:24:00 Test Item Value Reference Range Interpretation Comments Glucose Lvl (test code = Glucose Lvl) 68 70-99 [facility]2022-09-10 18:24:00 Test Item Value Reference Range Interpretation Comments BUN (test code = BUN) 31 7-22 [place] 542562-09-10 18:24:00 Test Item Value Reference Range Interpretation Comments Creatinine Lvl (test code = Creatinine 0.89 0.50-1.40 Lvl) [facility]2022-09-10 18:24:00 Test Item Value Reference Range Interpretation Comments Sodium Lvl (test code = Sodium Lvl) 142 135-145 [facility]2022-09-10 18:24:00 Test Item Value Reference Range Interpretation Comments Potassium Lvl (test code = Potassium 3.9 3.5-5.1 Lvl) [place] 542562-09-10 18:24:00 Test Item Value Reference Range Interpretation Comments Chloride Lvl (test code = Chloride Lvl) 116 95-109 [facility]2022-09-10 18:24:00 Test Item Value Reference Range Interpretation Comments CO2 (test code = CO2) - [facility]2022-09-10 18:24:00 Test Item Value Reference Range Interpretation Comments AGAP (test code = AGAP) 8.9 10.0-20.0 [facility]2022-09-10 18:24:00 Test Item Value Reference Range Interpretation Comments Calcium Lvl (test code = Calcium Lvl) 6.1 8.5-10.5 [facility]2022-09-10 18:24:00 Test Item Value Reference Range Interpretation Comments eGFR (test code = eGFR) 64 [facility]2022-09-10 18:24:00 Test Item Value Reference Range Interpretation Comments Glucose Lvl (test code = Glucose Lvl) 68 70- [place] 542562-09-10 18:24:00 Test Item Value Reference Range Interpretation Comments BUN (test code = BUN) 31 7-22 [facility]2022-09-10 18:24:00 Test Item Value Reference Range Interpretation Comments Creatinine Lvl (test code = Creatinine 0.89 0.50-1.40 Lvl) [facility]2022-09-10 18:24:00 Test Item Value Reference Range Interpretation Comments Sodium Lvl (test code = Sodium Lvl) 142 135-145 [place] 542562-09-10 18:24:00 Test Item Value Reference Range Interpretation Comments Potassium Lvl (test code = Potassium 3.9 3.5-5.1 Lvl) [facility]2022-09-10 18:24:00 Test Item Value Reference Range Interpretation Comments Chloride Lvl (test code = Chloride Lvl) 116 95-109 [facility]2022-09-10 18:24:00 Test Item Value Reference Range Interpretation Comments CO2 (test code = CO2) 21 24-32 [place] 542562-09-10 18:24:00 Test Item Value Reference Range Interpretation Comments AGAP (test code = AGAP) 8.9 10.0-20.0 [facility]2022-09-10 18:24:00 Test Item Value Reference Range Interpretation Comments Calcium Lvl (test code = Calcium Lvl) 6.1 8.5-10.5 [place] 542562-09-10 18:24:00 Test Item Value Reference Range Interpretation Comments eGFR (test code = eGFR) 64 [facility]2022-09-10 18:24:00 Test Item Value Reference Range Interpretation Comments Glucose Lvl (test code = Glucose Lvl) 68 70-99 [facility]2022-09-10 18:24:00 Test Item Value Reference Range Interpretation Comments BUN (test code = BUN) 31 7-22 [facility]2022-09-10 18:24:00 Test Item Value Reference Range Interpretation Comments Creatinine Lvl (test code = Creatinine 0.89 0.50-1.40 Lvl) [facility]2022-09-10 18:24:00 Test Item Value Reference Range Interpretation Comments Sodium Lvl (test code = Sodium Lvl) 142 135-145 [place] 542562-09-10 18:24:00 Test Item Value Reference Range Interpretation Comments Potassium Lvl (test code = Potassium 3.9 3.5-5.1 Lvl) [facility]2022-09-10 18:24:00 Test Item Value Reference Range Interpretation Comments Chloride Lvl (test code = Chloride Lvl) 116 95-109 [facility]2022-09-10 18:24:00 Test Item Value Reference Range Interpretation Comments CO2 (test code = CO2) 21 24-32 [place] 542562-09-10 18:24:00 Test Item Value Reference Range Interpretation Comments AGAP (test code = AGAP) 8.9 10.0-20.0 [place] 542562-09-10 18:24:00 Test Item Value Reference Range Interpretation Comments Calcium Lvl (test code = Calcium Lvl) 6.1 8.5-10.5 [facility]2022-09-10 18:24:00 Test Item Value Reference Range Interpretation Comments eGFR (test code = eGFR) 64 [facility]2022-09-10 18:24:00 Test Item Value Reference Range Interpretation Comments Glucose Lvl (test code = Glucose Lvl) 68 70-99 [place] 542562-09-10 18:24:00 Test Item Value Reference Range Interpretation Comments BUN (test code = BUN) 31 7-22 [place] 542562-09-10 18:24:00 Test Item Value Reference Range Interpretation Comments Creatinine Lvl (test code = Creatinine 0.89 0.50-1.40 Lvl) [facility]2022-09-10 18:24:00 Test Item Value Reference Range Interpretation Comments Sodium Lvl (test code = Sodium Lvl) 142 135-145 [place] 542562-09-10 18:24:00 Test Item Value Reference Range Interpretation Comments Potassium Lvl (test code = Potassium 3.9 3.5-5.1 Lvl) [place] 542562-09-10 18:24:00 Test Item Value Reference Range Interpretation Comments Chloride Lvl (test code = Chloride Lvl) 116 95-109 [facility]2022-09-10 18:24:00 Test Item Value Reference Range Interpretation Comments CO2 (test code = CO2) - [place] 542562-09-10 18:24:00 Test Item Value Reference Range Interpretation Comments AGAP (test code = AGAP) 8.9 10.0-20.0 [place] 542562-09-10 18:24:00 Test Item Value Reference Range Interpretation Comments Calcium Lvl (test code = Calcium Lvl) 6.1 8.5-10.5 [facility]2022-09-10 18:24:00 Test Item Value Reference Range Interpretation Comments eGFR (test code = eGFR) 64 [place] 542562-09-10 18:24:00 Test Item Value Reference Range Interpretation Comments Glucose Lvl (test code = Glucose Lvl) 68 70-99 [place] 542562-09-10 18:24:00 Test Item Value Reference Range Interpretation Comments BUN (test code = BUN) 31 7-22 [facility]2022-09-10 18:24:00 Test Item Value Reference Range Interpretation Comments Creatinine Lvl (test code = Creatinine 0.89 0.50-1.40 Lvl) [facility]2022-09-10 18:24:00 Test Item Value Reference Range Interpretation Comments Sodium Lvl (test code = Sodium Lvl) 142 135-145 [facility]2022-09-10 18:24:00 Test Item Value Reference Range Interpretation Comments Potassium Lvl (test code = Potassium 3.9 3.5-5.1 Lvl) [facility]2022-09-10 18:24:00 Test Item Value Reference Range Interpretation Comments Chloride Lvl (test code = Chloride Lvl) 116 95-109 [place] 542562-09-10 18:24:00 Test Item Value Reference Range Interpretation Comments CO2 (test code = CO2) 21 - [place] 542562-09-10 18:24:00 Test Item Value Reference Range Interpretation Comments AGAP (test code = AGAP) 8.9 10.0-20.0 [place] 542562-09-10 18:24:00 Test Item Value Reference Range Interpretation Comments Calcium Lvl (test code = Calcium Lvl) 6.1 8.5-10.5 [place] 542562-09-10 18:24:00 Test Item Value Reference Range Interpretation Comments eGFR (test code = eGFR) 64 [place] 542562-09-10 06:54:00 Test Item Value Reference Range Interpretation Comments Glucose Lvl (test code = Glucose Lvl) 75 70-99 [place] 542562-09-10 06:54:00 Test Item Value Reference Range Interpretation Comments BUN (test code = BUN) 46 7-22 [facility]2022-09-10 06:54:00 Test Item Value Reference Range Interpretation Comments Creatinine Lvl (test code = Creatinine 1.44 0.50-1.40 Lvl) [place] 542562-09-10 06:54:00 Test Item Value Reference Range Interpretation Comments Sodium Lvl (test code = Sodium Lvl) 132 135-145 [place] 542562-09-10 06:54:00 Test Item Value Reference Range Interpretation Comments Potassium Lvl (test code = Potassium 5.3 3.5-5.1 Lvl) [facility]2022-09-10 06:54:00 Test Item Value Reference Range Interpretation Comments Chloride Lvl (test code = Chloride Lvl) 100 95-109 [place] 542562-09-10 06:54:00 Test Item Value Reference Range Interpretation Comments CO2 (test code = CO2) 24 24-32 [place] 542562-09-10 06:54:00 Test Item Value Reference Range Interpretation Comments Calcium Lvl (test code = Calcium Lvl) 8.0 8.5-10.5 [place] 542562-09-10 06:54:00 Test Item Value Reference Range Interpretation Comments AGAP (test code = AGAP) 13.3 10.0-20.0 [place] 542562-09-10 06:54:00 Test Item Value Reference Range Interpretation Comments eGFR (test code = eGFR) 36 [facility]9658[facility] 06:54:00 Test Item Value Reference Range Interpretation Comments Segs (test code = Segs) 46.2 45.0-75.0 [place] 519362-09-10 06:54:00 Test Item Value Reference Range Interpretation Comments Lymphocytes (test code = Lymphocytes) 33.6 20.0-40.0 [place] 519362-09-10 06:54:00 Test Item Value Reference Range Interpretation Comments Monocytes (test code = Monocytes) 13.6 2.0-12.0 [place] 519362-09-10 06:54:00 Test Item Value Reference Range Interpretation Comments Eosinophils (test code = 5.3 See_Comment [A utomated message] The Eosinophils) system which ge nerated this result tra nsmitted reference range : <=4.0. The reference r patria was not used to int erpret this result as normal/abnormal . [place] 519362-09-10 06:54:00 Test Item Value Reference Range Interpretation Comments Basophils (test code = 1.3 See_Comment [Aut omated message] The Basophils) system which ge nerated this result tra nsmitted reference range : <=1.0. The reference r patria was not used to int erpret this result as normal/abnormal . [facility]ScapwojKCUQDREMFU6545-55-44 06:54:00 Test Item Value Reference Range Interpretation Comments Neutrophils # (test code = Neutrophils 2.6 1.5-8.1 #) [place] 519362-09-10 06:54:00 Test Item Value Reference Range Interpretation Comments Lymphocytes # (test code = Lymphocytes 1.9 1.0-5.5 #) [place] 519362-09-10 06:54:00 Test Item Value Reference Range Interpretation Comments Monocytes # (test code 0.8 See_Comment [Aut omated message] The = Monocytes #) system which generated this result tra nsmitted reference range : <=0.8. The reference r patria was not used to int erpret this result as normal/abnormal . [place] 519362-09-10 06:54:00 Test Item Value Reference Range Interpretation Comments Eosinophils # (test code 0.3 See_Comment [A utomated message] The = Eosinophils #) system whic h generated this result tra nsmitted reference range : <=0.5. The reference r patria was not used to int erpret this result as normal/abnormal . [facility]EegthqwLLVZZUNNSB0767-27-74 06:54:00 Test Item Value Reference Range Interpretation Comments Basophils # (test code 0.1 See_Comment [Aut omated message] The = Basophils #) system which generated this result tra nsmitted reference range : <=0.2. The reference r patria was not used to int erpret this result as normal/abnormal . [facility] CenterAiwawrjZWCAIBFVCD9966-41-27 06:54:00 Test Item Value Reference Range Interpretation Comments Macrocyte (test code = 1+ *ABN*(07/21/22 Macrocyte) 1:54 AM) [facility] CenterZyrblmfFERNPTBCCE0222-55-53 06:54:00 Test Item Value Reference Range Interpretation Comments WBC (test code = WBC) 5.6 3.7-10.4 [place] 519362-09-10 06:54:00 Test Item Value Reference Range Interpretation Comments RBC (test code = RBC) 2.65 4.20-5.40 [place] 519362-09-10 06:54:00 Test Item Value Reference Range Interpretation Comments Hgb (test code = Hgb) 9.1 12.0-16.0 [place] 519362-09-10 06:54:00 Test Item Value Reference Range Interpretation Comments Hct (test code = Hct) 27.3 36.0-48.0 [place] 519362-09-10 06:54:00 Test Item Value Reference Range Interpretation Comments MCV (test code = MCV) 103.0 80.0-98.0 [place] 519362-09-10 06:54:00 Test Item Value Reference Range Interpretation Comments MCH (test code = MCH) 34.3 pg 27.0-31.0 [facility] CenterYineqmpXOKQSGXIIM1000-80-43 06:54:00 Test Item Value Reference Range Interpretation Comments MCHC (test code = MCHC) 33.3 32.0-36.0 [facility] CenterNqjmsqpWICENFMFXA7936-32-56 06:54:00 Test Item Value Reference Range Interpretation Comments RDW (test code = RDW) 15.3 11.5-14.5 [place] 519362-09-10 06:54:00 Test Item Value Reference Range Interpretation Comments Platelet (test code = Platelet) 236 133-450 [place] 519362-09-10 06:54:00 Test Item Value Reference Range Interpretation Comments MPV (test code = MPV) 7.1 7.4-10.4 [place] 542562-09-10 06:54:00 Test Item Value Reference Range Interpretation Comments Glucose Lvl (test code = Glucose Lvl) 75 70-99 [place] 542562-09-10 06:54:00 Test Item Value Reference Range Interpretation Comments BUN (test code = BUN) 46 7-22 [place] 542562-09-10 06:54:00 Test Item Value Reference Range Interpretation Comments Creatinine Lvl (test code = Creatinine 1.44 0.50-1.40 Lvl) [place] 542562-09-10 06:54:00 Test Item Value Reference Range Interpretation Comments Sodium Lvl (test code = Sodium Lvl) 132 135-145 [place] 542562-09-10 06:54:00 Test Item Value Reference Range Interpretation Comments Potassium Lvl (test code = Potassium 5.3 3.5-5.1 Lvl) [place] 542562-09-10 06:54:00 Test Item Value Reference Range Interpretation Comments Chloride Lvl (test code = Chloride Lvl) 100 95-109 [place] 542562-09-10 06:54:00 Test Item Value Reference Range Interpretation Comments CO2 (test code = CO2) 24 24-32 [place] 542562-09-10 06:54:00 Test Item Value Reference Range Interpretation Comments Calcium Lvl (test code = Calcium Lvl) 8.0 8.5-10.5 [place] 542562-09-10 06:54:00 Test Item Value Reference Range Interpretation Comments AGAP (test code = AGAP) 13.3 10.0-20.0 [place] 542562-09-10 06:54:00 Test Item Value Reference Range Interpretation Comments eGFR (test code = eGFR) 36 [place] 519362-09-10 06:54:00 Test Item Value Reference Range Interpretation Comments Segs (test code = Segs) 46.2 45.0-75.0 [place] 519362-09-10 06:54:00 Test Item Value Reference Range Interpretation Comments Lymphocytes (test code = Lymphocytes) 33.6 20.0-40.0 [place] 519362-09-10 06:54:00 Test Item Value Reference Range Interpretation Comments Monocytes (test code = Monocytes) 13.6 2.0-12.0 [facility] CenterFxpvybsLKCVYNQHTV4493-14-36 06:54:00 Test Item Value Reference Range Interpretation Comments Eosinophils (test code = 5.3 See_Comment [A utomated message] The Eosinophils) system which ge nerated this result tra nsmitted reference range : <=4.0. The reference r patria was not used to int erpret this result as normal/abnormal . [facility] CenterZvyqfyrXTUMZHBMFX1646-82-60 06:54:00 Test Item Value Reference Range Interpretation Comments Basophils (test code = 1.3 See_Comment [Aut omated message] The Basophils) system which ge nerated this result tra nsmitted reference range : <=1.0. The reference r patria was not used to int erpret this result as normal/abnormal . [facility] CenterZalpkpbDPDUAMFNHD4621-81-61 06:54:00 Test Item Value Reference Range Interpretation Comments Neutrophils # (test code = Neutrophils 2.6 1.5-8.1 #) [facility] CenterUxwedpiMOISRHCCEK0536-67-25 06:54:00 Test Item Value Reference Range Interpretation Comments Lymphocytes # (test code = Lymphocytes 1.9 1.0-5.5 #) [place] 519362-09-10 06:54:00 Test Item Value Reference Range Interpretation Comments Monocytes # (test code 0.8 See_Comment [Aut omated message] The = Monocytes #) system which generated this result tra nsmitted reference range : <=0.8. The reference r patria was not used to int erpret this result as normal/abnormal . [facility] CenterFnmyozqUXIJYQRCIZ3436-33-95 06:54:00 Test Item Value Reference Range Interpretation Comments Eosinophils # (test code 0.3 See_Comment [A utomated message] The = Eosinophils #) system whic h generated this result tra nsmitted reference range : <=0.5. The reference r patria was not used to int erpret this result as normal/abnormal . [place] 519362-09-10 06:54:00 Test Item Value Reference Range Interpretation Comments Basophils # (test code 0.1 See_Comment [Aut omated message] The = Basophils #) system which generated this result tra nsmitted reference range : <=0.2. The reference r patria was not used to int erpret this result as normal/abnormal . [facility] CenterBeiwlowICOOAENLTV5964-58-67 06:54:00 Test Item Value Reference Range Interpretation Comments Macrocyte (test code = 1+ *ABN*(07/21/22 Macrocyte) 1:54 AM) [facility] CenterFlcecssSSVUYTXAAZ4369-20-51 06:54:00 Test Item Value Reference Range Interpretation Comments WBC (test code = WBC) 5.6 3.7-10.4 [facility] CenterZnithiwTYXZUGOBIZ9134-09-86 06:54:00 Test Item Value Reference Range Interpretation Comments RBC (test code = RBC) 2.65 4.20-5.40 [facility] CenterSiayfqvMERBMGZOKV2234-35-07 06:54:00 Test Item Value Reference Range Interpretation Comments Hgb (test code = Hgb) 9.1 12.0-16.0 [facility] CenterHrmeosrVMXHBLJPEZ5513-23-16 06:54:00 Test Item Value Reference Range Interpretation Comments Hct (test code = Hct) 27.3 36.0-48.0 [facility] CenterWsknvezRZTCRQNCLZ5444-10-23 06:54:00 Test Item Value Reference Range Interpretation Comments MCV (test code = MCV) 103.0 80.0-98.0 [facility] CenterOfojzvaBFONVEKAAS0277-64-33 06:54:00 Test Item Value Reference Range Interpretation Comments MCH (test code = MCH) 34.3 pg 27.0-31.0 [facility] CenterWfujjymKELFBQCZRO0914-49-37 06:54:00 Test Item Value Reference Range Interpretation Comments MCHC (test code = MCHC) 33.3 32.0-36.0 [facility] CenterUfnkwdxCINUWLHITE2451-59-87 06:54:00 Test Item Value Reference Range Interpretation Comments RDW (test code = RDW) 15.3 11.5-14.5 [facility] CenterYuphdjhHJABFGBIQR8335-27-12 06:54:00 Test Item Value Reference Range Interpretation Comments Platelet (test code = Platelet) 236 133-450 [facility] CenterOreqnmnUVJYLXWHJZ0982-81-57 06:54:00 Test Item Value Reference Range Interpretation Comments MPV (test code = MPV) 7.1 7.4-10.4 [place] 542562-09-10 06:54:00 Test Item Value Reference Range Interpretation Comments Glucose Lvl (test code = Glucose Lvl) 75 70-99 [place] 542562-09-10 06:54:00 Test Item Value Reference Range Interpretation Comments BUN (test code = BUN) 46 7-22 [place] 542562-09-10 06:54:00 Test Item Value Reference Range Interpretation Comments Creatinine Lvl (test code = Creatinine 1.44 0.50-1.40 Lvl) [place] 542562-09-10 06:54:00 Test Item Value Reference Range Interpretation Comments Sodium Lvl (test code = Sodium Lvl) 132 135-145 [place] 542562-09-10 06:54:00 Test Item Value Reference Range Interpretation Comments Potassium Lvl (test code = Potassium 5.3 3.5-5.1 Lvl) [place] 542562-09-10 06:54:00 Test Item Value Reference Range Interpretation Comments Chloride Lvl (test code = Chloride Lvl) 100 95-109 [place] 542562-09-10 06:54:00 Test Item Value Reference Range Interpretation Comments CO2 (test code = CO2) 24 24-32 [place] 542562-09-10 06:54:00 Test Item Value Reference Range Interpretation Comments Calcium Lvl (test code = Calcium Lvl) 8.0 8.5-10.5 [place] 542562-09-10 06:54:00 Test Item Value Reference Range Interpretation Comments AGAP (test code = AGAP) 13.3 10.0-20.0 [place] 542562-09-10 06:54:00 Test Item Value Reference Range Interpretation Comments eGFR (test code = eGFR) 36 [place] 519362-09-10 06:54:00 Test Item Value Reference Range Interpretation Comments Segs (test code = Segs) 46.2 45.0-75.0 [place] 519362-09-10 06:54:00 Test Item Value Reference Range Interpretation Comments Lymphocytes (test code = Lymphocytes) 33.6 20.0-40.0 [place] 519362-09-10 06:54:00 Test Item Value Reference Range Interpretation Comments Monocytes (test code = Monocytes) 13.6 2.0-12.0 [place] 519362-09-10 06:54:00 Test Item Value Reference Range Interpretation Comments Eosinophils (test code = 5.3 See_Comment [A utomated message] The Eosinophils) system which ge nerated this result tra nsmitted reference range : <=4.0. The reference r patria was not used to int erpret this result as normal/abnormal . [facility] CenterLdssnqkBAYUNAXSLD8251-39-50 06:54:00 Test Item Value Reference Range Interpretation Comments Basophils (test code = 1.3 See_Comment [Aut omated message] The Basophils) system which ge nerated this result tra nsmitted reference range : <=1.0. The reference r patria was not used to int erpret this result as normal/abnormal . [place] 519362-09-10 06:54:00 Test Item Value Reference Range Interpretation Comments Neutrophils # (test code = Neutrophils 2.6 1.5-8.1 #) [place] 519362-09-10 06:54:00 Test Item Value Reference Range Interpretation Comments Lymphocytes # (test code = Lymphocytes 1.9 1.0-5.5 #) [place] 519362-09-10 06:54:00 Test Item Value Reference Range Interpretation Comments Monocytes # (test code 0.8 See_Comment [Aut omated message] The = Monocytes #) system which generated this result tra nsmitted reference range : <=0.8. The reference r patria was not used to int erpret this result as normal/abnormal . [place] 519362-09-10 06:54:00 Test Item Value Reference Range Interpretation Comments Eosinophils # (test code 0.3 See_Comment [A utomated message] The = Eosinophils #) system whic h generated this result tra nsmitted reference range : <=0.5. The reference r patria was not used to int erpret this result as normal/abnormal . [place] 519362-09-10 06:54:00 Test Item Value Reference Range Interpretation Comments Basophils # (test code 0.1 See_Comment [Aut omated message] The = Basophils #) system which generated this result tra nsmitted reference range : <=0.2. The reference r patria was not used to int erpret this result as normal/abnormal . [facility] CenterSsouxjvLKXWQHZSIK5651-58-31 06:54:00 Test Item Value Reference Range Interpretation Comments Macrocyte (test code = 1+ *ABN*(07/21/22 Macrocyte) 1:54 AM) [facility] CenterImcrarqSOCCDGBKJP9099-55-08 06:54:00 Test Item Value Reference Range Interpretation Comments WBC (test code = WBC) 5.6 3.7-10.4 [place] 519362-09-10 06:54:00 Test Item Value Reference Range Interpretation Comments RBC (test code = RBC) 2.65 4.20-5.40 [facility] CenterVmvxozmDUCCUVXCOA8185-90-46 06:54:00 Test Item Value Reference Range Interpretation Comments Hgb (test code = Hgb) 9.1 12.0-16.0 [facility] [facility]cdgajsOHJNZBWDIN0219-39-17 06:54:00 Test Item Value Reference Range Interpretation Comments Hct (test code = Hct) 27.3 36.0-48.0 [facility]LgtgrrhPLMRARBWBZ8516-58-18 06:54:00 Test Item Value Reference Range Interpretation Comments MCV (test code = MCV) 103.0 80.0-98.0 [facility] CenterXunytmpIFOCRBCOUG1789-34-07 06:54:00 Test Item Value Reference Range Interpretation Comments MCH (test code = MCH) 34.3 pg 27.0-31.0 [facility] CenterWmdwfmmJULHZDPJZW5315-62-28 06:54:00 Test Item Value Reference Range Interpretation Comments MCHC (test code = MCHC) 33.3 32.0-36.0 [facility] CenterIwnnjpfRVZJZNVKQI9266-03-20 06:54:00 Test Item Value Reference Range Interpretation Comments RDW (test code = RDW) 15.3 11.5-14.5 [place] 519362-09-10 06:54:00 Test Item Value Reference Range Interpretation Comments Platelet (test code = Platelet) 236 133-450 [facility] CenterEkoryalHXTOBTWJAP1008-77-06 06:54:00 Test Item Value Reference Range Interpretation Comments MPV (test code = MPV) 7.1 7.4-10.4 [facility]2022-09-10 06:54:00 Test Item Value Reference Range Interpretation Comments Glucose Lvl (test code = Glucose Lvl) 75 70-99 [facility]2022-09-10 06:54:00 Test Item Value Reference Range Interpretation Comments BUN (test code = BUN) 46 7-22 [place] 542562-09-10 06:54:00 Test Item Value Reference Range Interpretation Comments Creatinine Lvl (test code = Creatinine 1.44 0.50-1.40 Lvl) [place] 542562-09-10 06:54:00 Test Item Value Reference Range Interpretation Comments Sodium Lvl (test code = Sodium Lvl) 132 135-145 [place] 542562-09-10 06:54:00 Test Item Value Reference Range Interpretation Comments Potassium Lvl (test code = Potassium 5.3 3.5-5.1 Lvl) [place] 542562-09-10 06:54:00 Test Item Value Reference Range Interpretation Comments Chloride Lvl (test code = Chloride Lvl) 100 95-109 [place] 542562-09-10 06:54:00 Test Item Value Reference Range Interpretation Comments CO2 (test code = CO2) 24 24-32 [place] 542562-09-10 06:54:00 Test Item Value Reference Range Interpretation Comments Calcium Lvl (test code = Calcium Lvl) 8.0 8.5-10.5 [place] 542562-09-10 06:54:00 Test Item Value Reference Range Interpretation Comments AGAP (test code = AGAP) 13.3 10.0-20.0 [place] 542562-09-10 06:54:00 Test Item Value Reference Range Interpretation Comments eGFR (test code = eGFR) 36 [place] 519362-09-10 06:54:00 Test Item Value Reference Range Interpretation Comments Segs (test code = Segs) 46.2 45.0-75.0 [place] [address]-09-10 06:54:00 Test Item Value Reference Range Interpretation Comments Lymphocytes (test code = Lymphocytes) 33.6 20.0-40.0 [place] 519362-09-10 06:54:00 Test Item Value Reference Range Interpretation Comments Monocytes (test code = Monocytes) 13.6 2.0-12.0 [place] 519362-09-10 06:54:00 Test Item Value Reference Range Interpretation Comments Eosinophils (test code = 5.3 See_Comment [A utomated message] The Eosinophils) system which ge nerated this result tra nsmitted reference range : <=4.0. The reference r patria was not used to int erpret this result as normal/abnormal . [facility] CenterBxdyfwnXVBZGKSGDT8084-22-91 06:54:00 Test Item Value Reference Range Interpretation Comments Basophils (test code = 1.3 See_Comment [Aut omated message] The Basophils) system which ge nerated this result tra nsmitted reference range : <=1.0. The reference r patria was not used to int erpret this result as normal/abnormal . [facility] CenterWtnydkpSDBJABIGGL6718-79-44 06:54:00 Test Item Value Reference Range Interpretation Comments Neutrophils # (test code = Neutrophils 2.6 1.5-8.1 #) [facility] CenterMsnoxenWFRMBVJDOL3002-91-88 06:54:00 Test Item Value Reference Range Interpretation Comments Lymphocytes # (test code = Lymphocytes 1.9 1.0-5.5 #) [place] 519362-09-10 06:54:00 Test Item Value Reference Range Interpretation Comments Monocytes # (test code 0.8 See_Comment [Aut omated message] The = Monocytes #) system which generated this result tra nsmitted reference range : <=0.8. The reference r patria was not used to int erpret this result as normal/abnormal . [place] 519362-09-10 06:54:00 Test Item Value Reference Range Interpretation Comments Eosinophils # (test code 0.3 See_Comment [A utomated message] The = Eosinophils #) [facility] h generated this result tra nsmitted reference range : <=0.5. The reference r patria was not used to int erpret this result as normal/abnormal . [facility] CenterEfhcxpxEKEMUHNQFT7976-62-57 06:54:00 Test Item Value Reference Range Interpretation Comments Basophils # (test code 0.1 See_Comment [Aut omated message] The = Basophils #) system which generated this result tra nsmitted reference range : <=0.2. The reference r patria was not used to int erpret this result as normal/abnormal . [facility] CenterGbvjectLQHQXIUUFT0861-64-58 06:54:00 Test Item Value Reference Range Interpretation Comments Macrocyte (test code = 1+ *ABN*(9/10/22 Macrocyte) 1:54 AM) [facility] CenterHmhkyivOUBIRVSTJC8607-38-67 06:54:00 Test Item Value Reference Range Interpretation Comments WBC (test code = WBC) 5.6 3.7-10.4 [place] 519362-09-10 06:54:00 Test Item Value Reference Range Interpretation Comments RBC (test code = RBC) 2.65 4.20-5.40 [place] 519362-09-10 06:54:00 Test Item Value Reference Range Interpretation Comments Hgb (test code = Hgb) 9.1 12.0-16.0 [place] 519362-09-10 06:54:00 Test Item Value Reference Range Interpretation Comments Hct (test code = Hct) 27.3 36.0-48.0 [place] 519362-09-10 06:54:00 Test Item Value Reference Range Interpretation Comments MCV (test code = MCV) 103.0 80.0-98.0 [place] 519362-09-10 06:54:00 Test Item Value Reference Range Interpretation Comments MCH (test code = MCH) 34.3 pg 27.0-31.0 [place] 519362-09-10 06:54:00 Test Item Value Reference Range Interpretation Comments MCHC (test code = MCHC) 33.3 32.0-36.0 [facility] CenterTomfmlaJRNKPTQBCF8169-45-16 06:54:00 Test Item Value Reference Range Interpretation Comments RDW (test code = RDW) 15.3 11.5-14.5 [place] 519362-09-10 06:54:00 Test Item Value Reference Range Interpretation Comments Platelet (test code = Platelet) 236 133-450 [facility] CenterPbzflakXTYNXNUISK6416-59-35 06:54:00 Test Item Value Reference Range Interpretation Comments MPV (test code = MPV) 7.1 7.4-10.4 [facility]2022-09-10 06:54:00 Test Item Value Reference Range Interpretation Comments Glucose Lvl (test code = Glucose Lvl) 75 70-99 [place] 542562-09-10 06:54:00 Test Item Value Reference Range Interpretation Comments BUN (test code = BUN) 46 7-22 [place] 542562-09-10 06:54:00 Test Item Value Reference Range Interpretation Comments Creatinine Lvl (test code = Creatinine 1.44 0.50-1.40 Lvl) [place] 542562-09-10 06:54:00 Test Item Value Reference Range Interpretation Comments Sodium Lvl (test code = Sodium Lvl) 132 135-145 [place] 542562-09-10 06:54:00 Test Item Value Reference Range Interpretation Comments Potassium Lvl (test code = Potassium 5.3 3.5-5.1 Lvl) [place] 542562-09-10 06:54:00 Test Item Value Reference Range Interpretation Comments Chloride Lvl (test code = Chloride Lvl) 100 95-109 [place] 542562-09-10 06:54:00 Test Item Value Reference Range Interpretation Comments CO2 (test code = CO2) 24 24-32 [place] 542562-09-10 06:54:00 Test Item Value Reference Range Interpretation Comments Calcium Lvl (test code = Calcium Lvl) 8.0 8.5-10.5 [place] 542562-09-10 06:54:00 Test Item Value Reference Range Interpretation Comments AGAP (test code = AGAP) 13.3 10.0-20.0 [place] 542562-09-10 06:54:00 Test Item Value Reference Range Interpretation Comments eGFR (test code = eGFR) 36 [place] 519362-09-10 06:54:00 Test Item Value Reference Range Interpretation Comments Segs (test code = Segs) 46.2 45.0-75.0 [place] 519362-09-10 06:54:00 Test Item Value Reference Range Interpretation Comments Lymphocytes (test code = Lymphocytes) 33.6 20.0-40.0 [place] 519362-09-10 06:54:00 Test Item Value Reference Range Interpretation Comments Monocytes (test code = Monocytes) 13.6 2.0-12.0 [place] 519362-09-10 06:54:00 Test Item Value Reference Range Interpretation Comments Eosinophils (test code = 5.3 See_Comment [A utomated message] The Eosinophils) system which ge nerated this result tra nsmitted reference range : <=4.0. The reference r patria was not used to int erpret this result as normal/abnormal . [place] [address]-09-10 06:54:00 Test Item Value Reference Range Interpretation Comments Basophils (test code = 1.3 See_Comment [Aut omated message] The Basophils) system which ge nerated this result tra nsmitted reference range : <=1.0. The reference r patria was not used to int erpret this result as normal/abnormal . [facility] CenterLwyvxfmFFNDULMELQ6177-52-68 06:54:00 Test Item Value Reference Range Interpretation Comments Neutrophils # (test code = Neutrophils 2.6 1.5-8.1 #) [facility] CenterHmfmfitHRPWBFMDUL7538-34-40 06:54:00 Test Item Value Reference Range Interpretation Comments Lymphocytes # (test code = Lymphocytes 1.9 1.0-5.5 #) [facility] CenterTcdvswePAIGQBWVKQ0712-50-19 06:54:00 Test Item Value Reference Range Interpretation Comments Monocytes # (test code 0.8 See_Comment [Aut omated message] The = Monocytes #) system which generated this result tra nsmitted reference range : <=0.8. The reference r patria was not used to int erpret this result as normal/abnormal . [facility] CenterNueddkvVJGYHOTTUU9054-47-05 06:54:00 Test Item Value Reference Range Interpretation Comments Eosinophils # (test code 0.3 See_Comment [A utomated message] The = Eosinophils #) system whic h generated this result tra nsmitted reference range : <=0.5. The reference r patria was not used to int erpret this result as normal/abnormal . [facility] CenterBjdhkerEYNJUJGFUZ8451-90-30 06:54:00 Test Item Value Reference Range Interpretation Comments Basophils # (test code 0.1 See_Comment [Aut omated message] The = Basophils #) system which generated this result tra nsmitted reference range : <=0.2. The reference r patria was not used to int erpret this result as normal/abnormal . [facility] CenterZfnocslGFFLJOQNUA5871-39-45 06:54:00 Test Item Value Reference Range Interpretation Comments Macrocyte (test code = 1+ *ABN*(07/21/22 Macrocyte) 1:54 AM) [facility] CenterGwwjitlLOAHOVBGHI5183-28-78 06:54:00 Test Item Value Reference Range Interpretation Comments WBC (test code = WBC) 5.6 3.7-10.4 [place] 519362-09-10 06:54:00 Test Item Value Reference Range Interpretation Comments RBC (test code = RBC) 2.65 4.20-5.40 [place] 519362-09-10 06:54:00 Test Item Value Reference Range Interpretation Comments Hgb (test code = Hgb) 9.1 12.0-16.0 [place] 519362-09-10 06:54:00 Test Item Value Reference Range Interpretation Comments Hct (test code = Hct) 27.3 36.0-48.0 [place] 519362-09-10 06:54:00 Test Item Value Reference Range Interpretation Comments MCV (test code = MCV) 103.0 80.0-98.0 [place] 519362-09-10 06:54:00 Test Item Value Reference Range Interpretation Comments MCH (test code = MCH) 34.3 pg 27.0-31.0 [place] 519362-09-10 06:54:00 Test Item Value Reference Range Interpretation Comments MCHC (test code = MCHC) 33.3 32.0-36.0 [place] 519362-09-10 06:54:00 Test Item Value Reference Range Interpretation Comments RDW (test code = RDW) 15.3 11.5-14.5 [place] 519362-09-10 06:54:00 Test Item Value Reference Range Interpretation Comments Platelet (test code = Platelet) 236 133-450 [facility] CenterDdvicksXWEFCLKQZL8443-93-88 06:54:00 Test Item Value Reference Range Interpretation Comments MPV (test code = MPV) 7.1 7.4-10.4 [facility]2022-09-10 06:54:00 Test Item Value Reference Range Interpretation Comments Glucose Lvl (test code = Glucose Lvl) 75 70-99 [place] 542562-09-10 06:54:00 Test Item Value Reference Range Interpretation Comments BUN (test code = BUN) 46 7-22 [place] 542562-09-10 06:54:00 Test Item Value Reference Range Interpretation Comments Creatinine Lvl (test code = Creatinine 1.44 0.50-1.40 Lvl) [place] 542562-09-10 06:54:00 Test Item Value Reference Range Interpretation Comments Sodium Lvl (test code = Sodium Lvl) 132 135-145 [place] 542562-09-10 06:54:00 Test Item Value Reference Range Interpretation Comments Potassium Lvl (test code = Potassium 5.3 3.5-5.1 Lvl) [place] 542562-09-10 06:54:00 Test Item Value Reference Range Interpretation Comments Chloride Lvl (test code = Chloride Lvl) 100 95-109 [place] 542562-09-10 06:54:00 Test Item Value Reference Range Interpretation Comments CO2 (test code = CO2) 24 24-32 [place] 542562-09-10 06:54:00 Test Item Value Reference Range Interpretation Comments Calcium Lvl (test code = Calcium Lvl) 8.0 8.5-10.5 [place] 542562-09-10 06:54:00 Test Item Value Reference Range Interpretation Comments AGAP (test code = AGAP) 13.3 10.0-20.0 [place] 542562-09-10 06:54:00 Test Item Value Reference Range Interpretation Comments eGFR (test code = eGFR) 36 [place] 519362-09-10 06:54:00 Test Item Value Reference Range Interpretation Comments Segs (test code = Segs) 46.2 45.0-75.0 [place] 519362-09-10 06:54:00 Test Item Value Reference Range Interpretation Comments Lymphocytes (test code = Lymphocytes) 33.6 20.0-40.0 [place] 519362-09-10 06:54:00 Test Item Value Reference Range Interpretation Comments Monocytes (test code = Monocytes) 13.6 2.0-12.0 [place] [address]-09-10 06:54:00 Test Item Value Reference Range Interpretation Comments Eosinophils (test code = 5.3 See_Comment [A utomated message] The Eosinophils) system which ge nerated this result tra nsmitted reference range : <=4.0. The reference r patria was not used to int erpret this result as normal/abnormal . [place] 519362-09-10 06:54:00 Test Item Value Reference Range Interpretation Comments Basophils (test code = 1.3 See_Comment [Aut omated message] The Basophils) system which ge nerated this result tra nsmitted reference range : <=1.0. The reference r patria was not used to int erpret this result as normal/abnormal . [facility] CenterJmorbxfFOQFXZYBQW3105-80-97 06:54:00 Test Item Value Reference Range Interpretation Comments Neutrophils # (test code = Neutrophils 2.6 1.5-8.1 #) [facility] CenterYqfezpzTTMUSIIHSS2842-32-66 06:54:00 Test Item Value Reference Range Interpretation Comments Lymphocytes # (test code = Lymphocytes 1.9 1.0-5.5 #) [facility] CenterVkbcilvMULRGLYCRU7735-65-54 06:54:00 Test Item Value Reference Range Interpretation Comments Monocytes # (test code 0.8 See_Comment [Aut omated message] The = Monocytes #) system which generated this result tra nsmitted reference range : <=0.8. The reference r patria was not used to int erpret this result as normal/abnormal . [facility] CenterGwltiegXLFWXCZJFR4916-04-17 06:54:00 Test Item Value Reference Range Interpretation Comments Eosinophils # (test code 0.3 See_Comment [A utomated message] The = Eosinophils #) system whic h generated this result tra nsmitted reference range : <=0.5. The reference r patria was not used to int erpret this result as normal/abnormal . [facility] CenterIiodpyzEVCNXEBTMA9345-99-16 06:54:00 Test Item Value Reference Range Interpretation Comments Basophils # (test code 0.1 See_Comment [Aut omated message] The = Basophils #) system which generated this result tra nsmitted reference range : <=0.2. The reference r patria was not used to int erpret this result as normal/abnormal . [facility] CenterUbxgshnKNNSULBEMC8517-02-68 06:54:00 Test Item Value Reference Range Interpretation Comments Macrocyte (test code = 1+ *ABN*(07/21/22 Macrocyte) 1:54 AM) [place] 519362-09-10 06:54:00 Test Item Value Reference Range Interpretation Comments WBC (test code = WBC) 5.6 3.7-10.4 [place] 519362-09-10 06:54:00 Test Item Value Reference Range Interpretation Comments RBC (test code = RBC) 2.65 4.20-5.40 [place] 519362-09-10 06:54:00 Test Item Value Reference Range Interpretation Comments Hgb (test code = Hgb) 9.1 12.0-16.0 [facility] CenterTxypyxbTYDVYSVVWK6580-09-20 06:54:00 Test Item Value Reference Range Interpretation Comments Hct (test code = Hct) 27.3 36.0-48.0 [facility] CenterXbabhyoZDSNDGQETB7337-86-94 06:54:00 Test Item Value Reference Range Interpretation Comments MCV (test code = MCV) 103.0 80.0-98.0 [facility] CenterDihykbdTXBCIVSPTM8861-36-72 06:54:00 Test Item Value Reference Range Interpretation Comments MCH (test code = MCH) 34.3 pg 27.0-31.0 [facility] CenterTwvbcoaCOUQRVLJGD7816-33-12 06:54:00 Test Item Value Reference Range Interpretation Comments MCHC (test code = MCHC) 33.3 32.0-36.0 [facility] CenterSpnfxoaXYELQTETAC5687-83-63 06:54:00 Test Item Value Reference Range Interpretation Comments RDW (test code = RDW) 15.3 11.5-14.5 [facility] CenterOfvbcfcSIQWVQJRCR3910-31-24 06:54:00 Test Item Value Reference Range Interpretation Comments Platelet (test code = Platelet) 236 133-450 [facility] CenterSelihwpHFYTTGREVD4561-88-95 06:54:00 Test Item Value Reference Range Interpretation Comments MPV (test code = MPV) 7.1 7.4-10.4 [facility]2022-09-10 06:54:00 Test Item Value Reference Range Interpretation Comments Glucose Lvl (test code = Glucose Lvl) 75 70-99 [facility]2022-09-10 06:54:00 Test Item Value Reference Range Interpretation Comments BUN (test code = BUN) 46 7-22 [facility]2022-09-10 06:54:00 Test Item Value Reference Range Interpretation Comments Creatinine Lvl (test code = Creatinine 1.44 0.50-1.40 Lvl) [facility]2022-09-10 06:54:00 Test Item Value Reference Range Interpretation Comments Sodium Lvl (test code = Sodium Lvl) 132 135-145 [place] 542562-09-10 06:54:00 Test Item Value Reference Range Interpretation Comments Potassium Lvl (test code = Potassium 5.3 3.5-5.1 Lvl) [place] 542562-09-10 06:54:00 Test Item Value Reference Range Interpretation Comments Chloride Lvl (test code = Chloride Lvl) 100 95-109 [place] 542562-09-10 06:54:00 Test Item Value Reference Range Interpretation Comments CO2 (test code = CO2) 24 24-32 [place] 542562-09-10 06:54:00 Test Item Value Reference Range Interpretation Comments Calcium Lvl (test code = Calcium Lvl) 8.0 8.5-10.5 [place] 542562-09-10 06:54:00 Test Item Value Reference Range Interpretation Comments AGAP (test code = AGAP) 13.3 10.0-20.0 [place] [address]-09-10 06:54:00 Test Item Value Reference Range Interpretation Comments eGFR (test code = eGFR) 36 [place] 519362-09-10 06:54:00 Test Item Value Reference Range Interpretation Comments Segs (test code = Segs) 46.2 45.0-75.0 [place] 519362-09-10 06:54:00 Test Item Value Reference Range Interpretation Comments Lymphocytes (test code = Lymphocytes) 33.6 20.0-40.0 [place] 519362-09-10 06:54:00 Test Item Value Reference Range Interpretation Comments Monocytes (test code = Monocytes) 13.6 2.0-12.0 [place] [address]-09-10 06:54:00 Test Item Value Reference Range Interpretation Comments Eosinophils (test code = 5.3 See_Comment [A utomated message] The Eosinophils) system which ge nerated this result tra nsmitted reference range : <=4.0. The reference r patria was not used to int erpret this result as normal/abnormal . [place] 519362-09-10 06:54:00 Test Item Value Reference Range Interpretation Comments Basophils (test code = 1.3 See_Comment [Aut omated message] The Basophils) system which ge nerated this result tra nsmitted reference range : <=1.0. The reference r patria was not used to int erpret this result as normal/abnormal . [place] 519362-09-10 06:54:00 Test Item Value Reference Range Interpretation Comments Neutrophils # (test code = Neutrophils 2.6 1.5-8.1 #) [facility] CenterDpeawmpACPEUJXIMC3524-79-58 06:54:00 Test Item Value Reference Range Interpretation Comments Lymphocytes # (test code = Lymphocytes 1.9 1.0-5.5 #) [facility] CenterIhdotwcXIDJGBBVQI9058-42-47 06:54:00 Test Item Value Reference Range Interpretation Comments Monocytes # (test code 0.8 See_Comment [Aut omated message] The = Monocytes #) system which generated this result tra nsmitted reference range : <=0.8. The reference r patria was not used to int erpret this result as normal/abnormal . [facility] CenterRdvwgrrTUFPPIMZVL6156-76-37 06:54:00 Test Item Value Reference Range Interpretation Comments Eosinophils # (test code 0.3 See_Comment [A utomated message] The = Eosinophils #) system whic h generated this result tra nsmitted reference range : <=0.5. The reference r patria was not used to int erpret this result as normal/abnormal . [facility] CenterIqnfjccLYQFCNUOTK0609-13-44 06:54:00 Test Item Value Reference Range Interpretation Comments Basophils # (test code 0.1 See_Comment [Aut omated message] The = Basophils #) system which generated this result tra nsmitted reference range : <=0.2. The reference r patria was not used to int erpret this result as normal/abnormal . [facility] CenterQzskqmpFHCOGBXZIA3666-09-12 06:54:00 Test Item Value Reference Range Interpretation Comments Macrocyte (test code = 1+ *ABN*(07/21/22 Macrocyte) 1:54 AM) [facility] CenterYpycpcjGNNYBVEEKX8134-41-15 06:54:00 Test Item Value Reference Range Interpretation Comments WBC (test code = WBC) 5.6 3.7-10.4 [place] 519362-09-10 06:54:00 Test Item Value Reference Range Interpretation Comments RBC (test code = RBC) 2.65 4.20-5.40 [place] 519362-09-10 06:54:00 Test Item Value Reference Range Interpretation Comments Hgb (test code = Hgb) 9.1 12.0-16.0 [place] 519362-09-10 06:54:00 Test Item Value Reference Range Interpretation Comments Hct (test code = Hct) 27.3 36.0-48.0 [place] 519362-09-10 06:54:00 Test Item Value Reference Range Interpretation Comments MCV (test code = MCV) 103.0 80.0-98.0 [place] [address]-09-10 06:54:00 Test Item Value Reference Range Interpretation Comments MCH (test code = MCH) 34.3 pg 27.0-31.0 [place] [address]-09-10 06:54:00 Test Item Value Reference Range Interpretation Comments MCHC (test code = MCHC) 33.3 32.0-36.0 [place] 519362-09-10 06:54:00 Test Item Value Reference Range Interpretation Comments RDW (test code = RDW) 15.3 11.5-14.5 [place] [address]-09-10 06:54:00 Test Item Value Reference Range Interpretation Comments Platelet (test code = Platelet) 236 133-450 [place] 519362-09-10 06:54:00 Test Item Value Reference Range Interpretation Comments MPV (test code = MPV) 7.1 7.4-10.4 [place] 542562-09-10 06:54:00 Test Item Value Reference Range Interpretation Comments Glucose Lvl (test code = Glucose Lvl) 75 70-99 [place] 542562-09-10 06:54:00 Test Item Value Reference Range Interpretation Comments BUN (test code = BUN) 46 7-22 [place] 542562-09-10 06:54:00 Test Item Value Reference Range Interpretation Comments Creatinine Lvl (test code = Creatinine 1.44 0.50-1.40 Lvl) [place] 542562-09-10 06:54:00 Test Item Value Reference Range Interpretation Comments Sodium Lvl (test code = Sodium Lvl) 132 135-145 [place] 542562-09-10 06:54:00 Test Item Value Reference Range Interpretation Comments Potassium Lvl (test code = Potassium 5.3 3.5-5.1 Lvl) [place] 542562-09-10 06:54:00 Test Item Value Reference Range Interpretation Comments Chloride Lvl (test code = Chloride Lvl) 100 95-109 [place] 542562-09-10 06:54:00 Test Item Value Reference Range Interpretation Comments CO2 (test code = CO2) 24 24-32 [place] 542562-09-10 06:54:00 Test Item Value Reference Range Interpretation Comments Calcium Lvl (test code = Calcium Lvl) 8.0 8.5-10.5 [place] 542562-09-10 06:54:00 Test Item Value Reference Range Interpretation Comments AGAP (test code = AGAP) 13.3 10.0-20.0 [place] [address]-09-10 06:54:00 Test Item Value Reference Range Interpretation Comments eGFR (test code = eGFR) 36 [place] 519362-09-10 06:54:00 Test Item Value Reference Range Interpretation Comments Segs (test code = Segs) 46.2 45.0-75.0 [place] [place]362-09-10 06:54:00 Test Item Value Reference Range Interpretation Comments Lymphocytes (test code = Lymphocytes) 33.6 20.0-40.0 [place] 519362-09-10 06:54:00 Test Item Value Reference Range Interpretation Comments Monocytes (test code = Monocytes) 13.6 2.0-12.0 [place] 519362-09-10 06:54:00 Test Item Value Reference Range Interpretation Comments Eosinophils (test code = 5.3 See_Comment [A utomated message] The Eosinophils) system which ge nerated this result tra nsmitted reference range : <=4.0. The reference r patria was not used to int erpret this result as normal/abnormal . [place]362-09-10 06:54:00 Test Item Value Reference Range Interpretation Comments Basophils (test code = 1.3 See_Comment [Aut omated message] The Basophils) system which ge nerated this result tra nsmitted reference range : <=1.0. The reference r patria was not used to int erpret this result as normal/abnormal . [place]362-09-10 06:54:00 Test Item Value Reference Range Interpretation Comments Neutrophils # (test code = Neutrophils 2.6 1.5-8.1 #) [place] 519362-09-10 06:54:00 Test Item Value Reference Range Interpretation Comments Lymphocytes # (test code = Lymphocytes 1.9 1.0-5.5 #) [facility] Test Item Value Reference Range Interpretation Comments Monocytes # (test code 0.8 See_Comment [Aut omated message] The = Monocytes #) system which generated this result tra nsmitted reference range : <=0.8. The reference r patria was not used to int erpret this result as normal/abnormal . [facility]UbosbueOGYWWLLCJD9115-14-[facility] 06:54:00 Test Item Value Reference Range Interpretation Comments Eosinophils # (test code 0.3 See_Comment [A utomated message] The = Eosinophils #) system whic h generated this result tra nsmitted reference range : <=0.5. The reference r patria was not used to int erpret this result as normal/abnormal . [facility] CenterLhkfdubKFFIXMESKB2234-25-51 06:54:00 Test Item Value Reference Range Interpretation Comments Basophils # (test code 0.1 See_Comment [Aut omated message] The = Basophils #) system which generated this result tra nsmitted reference range : <=0.2. The reference r patria was not used to int erpret this result as normal/abnormal . [facility] CenterMoyjozsVKOWKLCCOC3198-95-31 06:54:00 Test Item Value Reference Range Interpretation Comments Macrocyte (test code = 1+ *ABN*(07/21/22 Macrocyte) 1:54 AM) [place] 519362-09-10 06:54:00 Test Item Value Reference Range Interpretation Comments WBC (test code = WBC) 5.6 3.7-10.4 [place] 519362-09-10 06:54:00 Test Item Value Reference Range Interpretation Comments RBC (test code = RBC) 2.65 4.20-5.40 [place]362-09-10 06:54:00 Test Item Value Reference Range Interpretation Comments Hgb (test code = Hgb) 9.1 12.0-16.0 [place] 519362-09-10 06:54:00 Test Item Value Reference Range Interpretation Comments Hct (test code = Hct) 27.3 36.0-48.0 [place] 519362-09-10 06:54:00 Test Item Value Reference Range Interpretation Comments MCV (test code = MCV) 103.0 80.0-98.0 [place] [address]257-09-10 06:54:00 Test Item Value Reference Range Interpretation Comments MCH (test code = MCH) 34.3 pg 27.0-31.0 [place] 519362-09-10 06:54:00 Test Item Value Reference Range Interpretation Comments MCHC (test code = MCHC) 33.3 32.0-36.0 [place] 519362-09-10 06:54:00 Test Item Value Reference Range Interpretation Comments RDW (test code = RDW) 15.3 11.5-14.5 [place] [address]257-09-10 06:54:00 Test Item Value Reference Range Interpretation Comments Platelet (test code = Platelet) 236 133-450 [place] 519362-09-10 06:54:00 Test Item Value Reference Range Interpretation Comments MPV (test code = MPV) 7.1 7.4-10.4 [place] 542562-09-10 06:54:00 Test Item Value Reference Range Interpretation Comments Glucose Lvl (test code = Glucose Lvl) 75 70-99 [place] 542562-09-10 06:54:00 Test Item Value Reference Range Interpretation Comments BUN (test code = BUN) 46 7-22 [place] 542562-09-10 06:54:00 Test Item Value Reference Range Interpretation Comments Creatinine Lvl (test code = Creatinine 1.44 0.50-1.40 Lvl) [place] 542562-09-10 06:54:00 Test Item Value Reference Range Interpretation Comments Sodium Lvl (test code = Sodium Lvl) 132 135-145 [place] 542562-09-10 06:54:00 Test Item Value Reference Range Interpretation Comments Potassium Lvl (test code = Potassium 5.3 3.5-5.1 Lvl) [place] 542562-09-10 06:54:00 Test Item Value Reference Range Interpretation Comments Chloride Lvl (test code = Chloride Lvl) 100 95-109 [place] 542562-09-10 06:54:00 Test Item Value Reference Range Interpretation Comments CO2 (test code = CO2) 24 24-32 [place] 542562-09-10 06:54:00 Test Item Value Reference Range Interpretation Comments Calcium Lvl (test code = Calcium Lvl) 8.0 8.5-10.5 [facility]2022-09-10 06:54:00 Test Item Value Reference Range Interpretation Comments AGAP (test code = AGAP) 13.3 10.0-20.0 [facility]2022-09-10 06:54:00 Test Item Value Reference Range Interpretation Comments eGFR (test code = eGFR) 36 [facility]GvhtnguGILFAZJFNC8333-03-01 06:54:00 Test Item Value Reference Range Interpretation Comments Segs (test code = Segs) 46.2 45.0-75.0 [place] 519362-09-10 06:54:00 Test Item Value Reference Range Interpretation Comments Lymphocytes (test code = Lymphocytes) 33.6 20.0-40.0 [place] 519362-09-10 06:54:00 Test Item Value Reference Range Interpretation Comments Monocytes (test code = Monocytes) 13.6 2.0-12.0 [place] 519362-09-10 06:54:00 Test Item Value Reference Range Interpretation Comments Eosinophils (test code = 5.3 See_Comment [A utomated message] The Eosinophils) system which ge nerated this result tra nsmitted reference range : <=4.0. The reference r patria was not used to int erpret this result as normal/abnormal . [place] 519362-09-10 06:54:00 Test Item Value Reference Range Interpretation Comments Basophils (test code = 1.3 See_Comment [Aut omated message] The Basophils) system which ge nerated this result tra nsmitted reference range : <=1.0. The reference r patria was not used to int erpret this result as normal/abnormal . [place] 519362-09-10 06:54:00 Test Item Value Reference Range Interpretation Comments Neutrophils # (test code = Neutrophils 2.6 1.5-8.1 #) [facility]AfavrqvTZIRHMTWDX1635-46-84 06:54:00 Test Item Value Reference Range Interpretation Comments Lymphocytes # (test code = Lymphocytes 1.9 1.0-5.5 #) [place] 519362-09-10 06:54:00 Test Item Value Reference Range Interpretation Comments Monocytes # (test code 0.8 See_Comment [Aut omated message] The = Monocytes #) system which generated this result tra nsmitted reference range : <=0.8. The reference r patria was not used to int erpret this result as normal/abnormal . [facility] CenterBkencwiPHCKRJIYMY5824-38-61 06:54:00 Test Item Value Reference Range Interpretation Comments Eosinophils # (test code 0.3 See_Comment [A utomated message] The = Eosinophils #) system whic h generated this result tra nsmitted reference range : <=0.5. The reference r patria was not used to int erpret this result as normal/abnormal . [facility] CenterUciixdhEPLDHGERTD8134-48-80 06:54:00 Test Item Value Reference Range Interpretation Comments Basophils # (test code 0.1 See_Comment [Aut omated message] The = Basophils #) system which generated this result tra nsmitted reference range : <=0.2. The reference r patria was not used to int erpret this result as normal/abnormal . [facility] CenterLasfnaqXYEHCGMRJG1127-21-20 06:54:00 Test Item Value Reference Range Interpretation Comments Macrocyte (test code = 1+ *ABN*(07/21/22 Macrocyte) 1:54 AM) [place] 519362-09-10 06:54:00 Test Item Value Reference Range Interpretation Comments WBC (test code = WBC) 5.6 3.7-10.4 [place] 519362-09-10 06:54:00 Test Item Value Reference Range Interpretation Comments RBC (test code = RBC) 2.65 4.20-5.40 [place]362-09-10 06:54:00 Test Item Value Reference Range Interpretation Comments Hgb (test code = Hgb) 9.1 12.0-16.0 [place] [address]257-09-10 06:54:00 Test Item Value Reference Range Interpretation Comments Hct (test code = Hct) 27.3 36.0-48.0 [facility] CenterOsfqweiHYGRSTUHBP1836-12-09 06:54:00 Test Item Value Reference Range Interpretation Comments MCV (test code = MCV) 103.0 80.0-98.0 [place] 519362-09-10 06:54:00 Test Item Value Reference Range Interpretation Comments MCH (test code = MCH) 34.3 pg 27.0-31.0 [place] 519362-09-10 06:54:00 Test Item Value Reference Range Interpretation Comments MCHC (test code = MCHC) 33.3 32.0-36.0 [place] 519362-09-10 06:54:00 Test Item Value Reference Range Interpretation Comments RDW (test code = RDW) 15.3 11.5-14.5 [place] 519362-09-10 06:54:00 Test Item Value Reference Range Interpretation Comments Platelet (test code = Platelet) 236 133-450 [place] 519362-09-10 06:54:00 Test Item Value Reference Range Interpretation Comments MPV (test code = MPV) 7.1 7.4-10.4 [place] 542562-09-10 06:54:00 Test Item Value Reference Range Interpretation Comments Glucose Lvl (test code = Glucose Lvl) 75 70-99 [place] 542562-09-10 06:54:00 Test Item Value Reference Range Interpretation Comments BUN (test code = BUN) 46 7-22 [place] 542562-09-10 06:54:00 Test Item Value Reference Range Interpretation Comments Creatinine Lvl (test code = Creatinine 1.44 0.50-1.40 Lvl) [place] 542562-09-10 06:54:00 Test Item Value Reference Range Interpretation Comments Sodium Lvl (test code = Sodium Lvl) 132 135-145 [place] 542562-09-10 06:54:00 Test Item Value Reference Range Interpretation Comments Potassium Lvl (test code = Potassium 5.3 3.5-5.1 Lvl) [place] 542562-09-10 06:54:00 Test Item Value Reference Range Interpretation Comments Chloride Lvl (test code = Chloride Lvl) 100 95-109 [place] 542562-09-10 06:54:00 Test Item Value Reference Range Interpretation Comments CO2 (test code = CO2) 24 24-32 [place] 542562-09-10 06:54:00 Test Item Value Reference Range Interpretation Comments Calcium Lvl (test code = Calcium Lvl) 8.0 8.5-10.5 [place] 542562-09-10 06:54:00 Test Item Value Reference Range Interpretation Comments AGAP (test code = AGAP) 13.3 10.0-20.0 [facility]2022-09-10 06:54:00 Test Item Value Reference Range Interpretation Comments eGFR (test code = eGFR) 36 [facility] CenterMdyxaevSYWMVKWXPM0210-91-52 06:54:00 Test Item Value Reference Range Interpretation Comments Segs (test code = Segs) 46.2 45.0-75.0 [facility] CenterShhxawsYOAXUVNPUY3551-25-07 06:54:00 Test Item Value Reference Range Interpretation Comments Lymphocytes (test code = Lymphocytes) 33.6 20.0-40.0 [facility] CenterFatvvfdJWCTNPGBVR9351-12-54 06:54:00 Test Item Value Reference Range Interpretation Comments Monocytes (test code = Monocytes) 13.6 2.0-12.0 [facility] CenterYvcdiotMULHFPFPOG3009-32-26 06:54:00 Test Item Value Reference Range Interpretation Comments Eosinophils (test code = 5.3 See_Comment [A utomated message] The Eosinophils) system which ge nerated this result tra nsmitted reference range : <=4.0. The reference r patria was not used to int erpret this result as normal/abnormal . [facility] CenterYincvzaKWPHLMOUPO9018-83-85 06:54:00 Test Item Value Reference Range Interpretation Comments Basophils (test code = 1.3 See_Comment [Aut omated message] The Basophils) system which ge nerated this result tra nsmitted reference range : <=1.0. The reference r patria was not used to int erpret this result as normal/abnormal . [facility] CenterWyrjtdmXJJJKRLYSI6791-87-08 06:54:00 Test Item Value Reference Range Interpretation Comments Neutrophils # (test code = Neutrophils 2.6 1.5-8.1 #) [place] 519362-09-10 06:54:00 Test Item Value Reference Range Interpretation Comments Lymphocytes # (test code = Lymphocytes 1.9 1.0-5.5 #) [place] 519362-09-10 06:54:00 Test Item Value Reference Range Interpretation Comments Monocytes # (test code 0.8 See_Comment [Aut omated message] The = Monocytes #) system which generated this result tra nsmitted reference range : <=0.8. The reference r patria was not used to int erpret this result as normal/abnormal . [facility] CenterUjzyqtlCQODNPIXJH6834-64-96 06:54:00 Test Item Value Reference Range Interpretation Comments Eosinophils # (test code 0.3 See_Comment [A utomated message] The = Eosinophils #) system whic h generated this result tra nsmitted reference range : <=0.5. The reference r patria was not used to int erpret this result as normal/abnormal . [facility] CenterDsysheiFTZQAKFKOX3068-42-42 06:54:00 Test Item Value Reference Range Interpretation Comments Basophils # (test code 0.1 See_Comment [Aut omated message] The = Basophils #) system which generated this result tra nsmitted reference range : <=0.2. The reference r patria was not used to int erpret this result as normal/abnormal . [facility] CenterWqdayloFCFNJRNRUM4277-90-94 06:54:00 Test Item Value Reference Range Interpretation Comments Macrocyte (test code = 1+ *ABN*(07/21/22 Macrocyte) 1:54 AM) [place] 519362-09-10 06:54:00 Test Item Value Reference Range Interpretation Comments WBC (test code = WBC) 5.6 3.7-10.4 [place] 519362-09-10 06:54:00 Test Item Value Reference Range Interpretation Comments RBC (test code = RBC) 2.65 4.20-5.40 [facility] CenterPgtozsbRIIWSKVNAQ6105-44-76 06:54:00 Test Item Value Reference Range Interpretation Comments Hgb (test code = Hgb) 9.1 12.0-16.0 [place]362-09-10 06:54:00 Test Item Value Reference Range Interpretation Comments Hct (test code = Hct) 27.3 36.0-48.0 [place] 519362-09-10 06:54:00 Test Item Value Reference Range Interpretation Comments MCV (test code = MCV) 103.0 80.0-98.0 [place]362-09-10 06:54:00 Test Item Value Reference Range Interpretation Comments MCH (test code = MCH) 34.3 pg 27.0-31.0 [place]362-09-10 06:54:00 Test Item Value Reference Range Interpretation Comments MCHC (test code = MCHC) 33.3 32.0-36.0 [place] 519362-09-10 06:54:00 Test Item Value Reference Range Interpretation Comments RDW (test code = RDW) 15.3 11.5-14.5 [place] 519362-09-10 06:54:00 Test Item Value Reference Range Interpretation Comments Platelet (test code = Platelet) 236 133-450 [place] 519362-09-10 06:54:00 Test Item Value Reference Range Interpretation Comments MPV (test code = MPV) 7.1 7.4-10.4 [place] 542562-09-10 06:54:00 Test Item Value Reference Range Interpretation Comments Glucose Lvl (test code = Glucose Lvl) 75 70-99 [place] 542562-09-10 06:54:00 Test Item Value Reference Range Interpretation Comments BUN (test code = BUN) 46 7-22 [place] 542562-09-10 06:54:00 Test Item Value Reference Range Interpretation Comments Creatinine Lvl (test code = Creatinine 1.44 0.50-1.40 Lvl) [place] 542562-09-10 06:54:00 Test Item Value Reference Range Interpretation Comments Sodium Lvl (test code = Sodium Lvl) 132 135-145 [place] 542562-09-10 06:54:00 Test Item Value Reference Range Interpretation Comments Potassium Lvl (test code = Potassium 5.3 3.5-5.1 Lvl) [place] 542562-09-10 06:54:00 Test Item Value Reference Range Interpretation Comments Chloride Lvl (test code = Chloride Lvl) 100 95-109 [place] 542562-09-10 06:54:00 Test Item Value Reference Range Interpretation Comments CO2 (test code = CO2) 24 24-32 [place] 542562-09-10 06:54:00 Test Item Value Reference Range Interpretation Comments Calcium Lvl (test code = Calcium Lvl) 8.0 8.5-10.5 [place] 542562-09-10 06:54:00 Test Item Value Reference Range Interpretation Comments AGAP (test code = AGAP) 13.3 10.0-20.0 [place] 542562-09-10 06:54:00 Test Item Value Reference Range Interpretation Comments eGFR (test code = eGFR) 36 [facility] CenterYcvyfzxLRGGDWOQTR9814-30-51 06:54:00 Test Item Value Reference Range Interpretation Comments Segs (test code = Segs) 46.2 45.0-75.0 [facility] CenterXnrgwfdCQNOVIYERG9234-83-80 06:54:00 Test Item Value Reference Range Interpretation Comments Lymphocytes (test code = Lymphocytes) 33.6 20.0-40.0 [place] 519362-09-10 06:54:00 Test Item Value Reference Range Interpretation Comments Monocytes (test code = Monocytes) 13.6 2.0-12.0 [place] 519362-09-10 06:54:00 Test Item Value Reference Range Interpretation Comments Eosinophils (test code = 5.3 See_Comment [A utomated message] The Eosinophils) system which ge nerated this result tra nsmitted reference range : <=4.0. The reference r patria was not used to int erpret this result as normal/abnormal . [facility] CenterHniscznDRXRFTUQSX5535-69-83 06:54:00 Test Item Value Reference Range Interpretation Comments Basophils (test code = 1.3 See_Comment [Aut omated message] The Basophils) system which ge nerated this result tra nsmitted reference range : <=1.0. The reference r patria was not used to int erpret this result as normal/abnormal . [facility] CenterAiaxopfAFHRHTWNPE3969-93-37 06:54:00 Test Item Value Reference Range Interpretation Comments Neutrophils # (test code = Neutrophils 2.6 1.5-8.1 #) [place] 519362-09-10 06:54:00 Test Item Value Reference Range Interpretation Comments Lymphocytes # (test code = Lymphocytes 1.9 1.0-5.5 #) [place] [address]-09-10 06:54:00 Test Item Value Reference Range Interpretation Comments Monocytes # (test code 0.8 See_Comment [Aut omated message] The = Monocytes #) system which generated this result tra nsmitted reference range : <=0.8. The reference r patria was not used to int erpret this result as normal/abnormal . [place] 519362-09-10 06:54:00 Test Item Value Reference Range Interpretation Comments Eosinophils # (test code 0.3 See_Comment [A utomated message] The = Eosinophils #) system whic h generated this result tra nsmitted reference range : <=0.5. The reference r patria was not used to int erpret this result as normal/abnormal . [facility] CenterBkxnsmjFVHECILVKO7978-34-09 06:54:00 Test Item Value Reference Range Interpretation Comments Basophils # (test code 0.1 See_Comment [Aut omated message] The = Basophils #) system which generated this result tra nsmitted reference range : <=0.2. The reference r patria was not used to int erpret this result as normal/abnormal . [facility] CenterEnuejcwOCITBQFMIS2480-86-81 06:54:00 Test Item Value Reference Range Interpretation Comments Macrocyte (test code = 1+ *ABN*(07/21/22 Macrocyte) 1:54 AM) [facility] CenterWrtwkrpLIRFMPVLSR3519-37-76 06:54:00 Test Item Value Reference Range Interpretation Comments WBC (test code = WBC) 5.6 3.7-10.4 [facility] CenterIepsxihVSNDYIBMEI4732-91-07 06:54:00 Test Item Value Reference Range Interpretation Comments RBC (test code = RBC) 2.65 4.20-5.40 [facility] CenterMqudinzTQZMXKHSAC4010-45-11 06:54:00 Test Item Value Reference Range Interpretation Comments Hgb (test code = Hgb) 9.1 12.0-16.0 [facility] CenterDmuqgqxNEYJWDICYR9230-44-10 06:54:00 Test Item Value Reference Range Interpretation Comments Hct (test code = Hct) 27.3 36.0-48.0 [facility] CenterHadnteySOVDYVIFUY2469-52-60 06:54:00 Test Item Value Reference Range Interpretation Comments MCV (test code = MCV) 103.0 80.0-98.0 [place] 519362-09-10 06:54:00 Test Item Value Reference Range Interpretation Comments MCH (test code = MCH) 34.3 pg 27.0-31.0 [facility] CenterZyaddmbSWICHTXOLJ4761-13-82 06:54:00 Test Item Value Reference Range Interpretation Comments MCHC (test code = MCHC) 33.3 32.0-36.0 [facility] CenterYmebqcuCBLDEJEZRV9692-83-25 06:54:00 Test Item Value Reference Range Interpretation Comments RDW (test code = RDW) 15.3 11.5-14.5 [facility]uetxfpDGCOKAONZD7818-19-92 06:54:00 Test Item Value Reference Range Interpretation Comments Platelet (test code = Platelet) 236 133-450 [facility] HospitalJaooxmvYAEDOYCHDR3966-45-82 06:54:00 Test Item Value Reference Range Interpretation Comments MPV (test code = MPV) 7.1 7.4-10.4 [facility] [employer] [id number] 05:48:00 Test Item Value Reference Range Interpretation Comments BB Note (test code = Result Note 9(07/20/22 BB Note) 12:48 AM) [facility] [employer] [id number] 05:48:00 Test Item Value Reference Range Interpretation Comments ABO/Rh (test code = ABO/Rh) A NEG [facility] [employer] [id number] 05:48:00 Test Item Value Reference Range Interpretation Comments Antibody Scrn (test Positive 5(07/20/22 code = Antibody Scrn) 12:48 AM) [facility] [employer] [id number] 05:48:00 Test Item Value Reference Range Interpretation Comments AB Int (test code = AB Int) Anti-D [facility] [employer] [id number] 05:48:00 Test Item Value Reference Range Interpretation Comments BB Note (test code = Result Note 9(07/20/22 BB Note) 12:48 AM) [facility] [employer] [id number] 05:48:00 Test Item Value Reference Range Interpretation Comments ABO/Rh (test code = ABO/Rh) A NEG [facility] [employer] [id number] 05:48:00 Test Item Value Reference Range Interpretation Comments Antibody Scrn (test Positive 5(07/20/22 code = Antibody Scrn) 12:48 AM) [facility] [employer] [id number] 05:48:00 Test Item Value Reference Range Interpretation Comments AB Int (test code = AB Int) Anti-D [facility] [employer] [id number] 05:48:00 Test Item Value Reference Range Interpretation Comments BB Note (test code = Result Note 9(07/20/22 BB Note) 12:48 AM) [facility] [employer] [id number] 05:48:00 Test Item Value Reference Range Interpretation Comments ABO/Rh (test code = ABO/Rh) A NEG [facility] [id number] 05:48:00 Test Item Value Reference Range Interpretation Comments Antibody Scrn (test Positive 5(07/20/22 code = Antibody Scrn) 12:48 AM) [facility] [id number] 05:48:00 Test Item Value Reference Range Interpretation Comments AB Int (test code = AB Int) [facility] [id number] 05:48:00 Test Item Value Reference Range Interpretation Comments BB Note (test code = Result Note 9(07/20/22 BB Note) 12:48 AM) [facility] ResourcesSaperionBall[facility] [id number] 05:48:00 Test Item Value Reference Range Interpretation Comments ABO/Rh (test code = ABO/Rh) A NEG [facility] [id number] 05:48:00 Test Item Value Reference Range Interpretation Comments Antibody Scrn (test Positive 5(07/20/22 code = Antibody Scrn) 12:48 AM) [facility]SaperionH[facility] [id number] 05:48:00 Test Item Value Reference Range Interpretation Comments AB Int (test code = AB Int) [facility]D [facility] [id number] 05:48:00 Test Item Value Reference Range Interpretation Comments BB Note (test code = Result Note 9(07/20/22 BB Note) 12:48 AM) [facility] ResourcesR[employer] [id number] 05:48:00 Test Item Value Reference Range Interpretation Comments ABO/Rh (test code = ABO/Rh) A NEG [facility] [employer] [id number] 05:48:00 Test Item Value Reference Range Interpretation Comments Antibody Scrn (test Positive 5(07/20/22 code = Antibody Scrn) 12:48 AM) [facility] [employer] [id number] 05:48:00 Test Item Value Reference Range Interpretation Comments AB Int (test code = AB Int) [facility]D [facility] [id number] 05:48:00 Test Item Value Reference Range Interpretation Comments BB Note (test code = Result Note 9(07/20/22 BB Note) 12:48 AM) [facility] [employer] [id number] 05:48:00 Test Item Value Reference Range Interpretation Comments ABO/Rh (test code = ABO/Rh) A NEG [facility] [facility] [employer] [id number] 05:48:00 Test Item Value Reference Range Interpretation Comments Antibody Scrn (test Positive 5(07/20/22 code = Antibody Scrn) 12:48 AM) [facility] [employer] [id number] 05:48:00 Test Item Value Reference Range Interpretation Comments AB Int (test code = AB Int) [facility]D [facility] [id number] 05:48:00 Test Item Value Reference Range Interpretation Comments BB Note (test code = Result Note 9(07/20/22 BB Note) 12:48 AM) [facility] [employer] [id number] 05:48:00 Test Item Value Reference Range Interpretation Comments ABO/Rh (test code = ABO/Rh) A NEG [facility] [employer] [id number] 05:48:00 Test Item Value Reference Range Interpretation Comments Antibody Scrn (test Positive 5(07/20/22 code = Antibody Scrn) 12:48 AM) [facility] ResourcesSaperionBall[facility] [id number] 05:48:00 Test Item Value Reference Range Interpretation Comments AB Int (test code = AB Int) Anti-D [facility] [employer] [id number] 05:48:00 Test Item Value Reference Range Interpretation Comments BB Note (test code = Result Note 9(07/20/22 BB Note) 12:48 AM) [facility] ResourcesR[employer] [id number] 05:48:00 Test Item Value Reference Range Interpretation Comments ABO/Rh (test code = ABO/Rh) A NEG [facility] [employer] [id number] 05:48:00 Test Item Value Reference Range Interpretation Comments Antibody Scrn (test Positive 5(07/20/22 code = Antibody Scrn) 12:48 AM) [facility] [employer] [id number] 05:48:00 Test Item Value Reference Range Interpretation Comments AB Int (test code = AB Int) Anti-D [facility] [employer] [id number] 05:48:00 Test Item Value Reference Range Interpretation Comments BB Note (test code = Result Note 9(07/20/22 BB Note) 12:48 AM) [facility] [employer] [facility] [id number] 05:48:00 Test Item Value Reference Range Interpretation Comments ABO/Rh (test code = ABO/Rh) A NEG [facility] [employer] [facility] [id number] 05:48:00 Test Item Value Reference Range Interpretation Comments Antibody Scrn (test Positive 5(07/20/22 code = Antibody Scrn) 12:48 AM) [facility] [employer] [facility] [id number] 05:48:00 Test Item Value Reference Range Interpretation Comments AB Int (test code = AB Int) Anti-D [facility] ResourcesBli[facility] [id number] 05:48:00 Test Item Value Reference Range Interpretation Comments BB Note (test code = Result Note 9(07/20/22 BB Note) 12:48 AM) [facility] [employer] [facility] [id number] 05:48:00 Test Item Value Reference Range Interpretation Comments ABO/Rh (test code = ABO/Rh) A NEG [facility] [employer] [facility] [id number] 05:48:00 Test Item Value Reference Range Interpretation Comments Antibody Scrn (test Positive 5(07/20/22 code = Antibody Scrn) 12:48 AM) [facility] [employer] [facility] [id number] 05:48:00 Test Item Value Reference Range Interpretation Comments AB Int (test code = AB Int) Anti-D [facility] [employer] [facility] [id number] 05:48:00 Test Item Value Reference Range Interpretation Comments BB Note (test code = Result Note 9(07/20/22 BB Note) 12:48 AM) [facility] [employer] [id number] 05:48:00 Test Item Value Reference Range Interpretation Comments ABO/Rh (test code = ABO/Rh) A NEG [facility] [employer] [facility] [id number] 05:48:00 Test Item Value Reference Range Interpretation Comments Antibody Scrn (test Positive 5(07/20/22 code = Antibody Scrn) 12:48 AM) [facility] [employer] [id number] 05:48:00 Test Item Value Reference Range Interpretation Comments AB Int (test code = AB Int) Anti-D [facility] [id number] 05:45:00 Test Item Value Reference Range Interpretation Comments Magnesium Lvl (test code = Magnesium 2.1 1.8-2.4 Lvl) [facility]2022-09-09 05:45:00 Test Item Value Reference Range Interpretation Comments Phosphorus (test code = Phosphorus) 3.2 2.5-4.5 [facility]OkgwcylHZSZGUOTXC8643-39-91 05:45:00 Test Item Value Reference Range Interpretation Comments WBC (test code = WBC) 4.5 3.7-10.4 [facility] CenterEkyesudMBQMJDEZNI2663-70-24 05:45:00 Test Item Value Reference Range Interpretation Comments RBC (test code = RBC) 2.67 4.20-5.40 [facility] CenterFioulhoYTNKMCICJL1914-95-86 05:45:00 Test Item Value Reference Range Interpretation Comments Hgb (test code = Hgb) 9.4 12.0-16.0 [facility] CenterZwypybdZWCQUMHRKH2412-22-13 05:45:00 Test Item Value Reference Range Interpretation Comments Hct (test code = Hct) 27.4 36.0-48.0 [facility] CenterZyoyzxxZTLGBHMJWO0119-79-63 05:45:00 Test Item Value Reference Range Interpretation Comments MCV (test code = MCV) 102.8 80.0-98.0 [facility] CenterCenfekmQJPIYMRKUD9477-41-78 05:45:00 Test Item Value Reference Range Interpretation Comments MCH (test code = MCH) 35.3 pg 27.0-31.0 [facility] CenterVaglrkpAUUDDTATFS4304-72-41 05:45:00 Test Item Value Reference Range Interpretation Comments MCHC (test code = MCHC) 34.3 32.0-36.0 [facility] CenterMqbdaneGEIPILWHZE5122-28-80 05:45:00 Test Item Value Reference Range Interpretation Comments RDW (test code = RDW) 15.8 11.5-14.5 [place]362-09-09 05:45:00 Test Item Value Reference Range Interpretation Comments Platelet (test code = Platelet) 207 133-450 [facility] CenterOyzdmhjGGZWLAIVOL3727-36-45 05:45:00 Test Item Value Reference Range Interpretation Comments MPV (test code = MPV) 7.3 7.4-10.4 [facility] CenterXgkzkulQNJATHECCU0439-26-73 05:45:00 Test Item Value Reference Range Interpretation Comments Segs (test code = Segs) 41.9 45.0-75.0 [place] 519362-09-09 05:45:00 Test Item Value Reference Range Interpretation Comments Lymphocytes (test code = Lymphocytes) 38.3 20.0-40.0 [facility] CenterYjeeuviEIWKDJKUTC8276-61-93 05:45:00 Test Item Value Reference Range Interpretation Comments Monocytes (test code = Monocytes) 13.8 2.0-12.0 [facility] CenterJpynwlaLNHHKUWLMJ9874-87-98 05:45:00 Test Item Value Reference Range Interpretation Comments Eosinophils (test code = 4.7 See_Comment [A utomated message] The Eosinophils) system which ge nerated this result tra nsmitted reference range : <=4.0. The reference r patria was not used to int erpret this result as normal/abnormal . [facility] CenterOavumsyHMZJIBYMKS2017-77-25 05:45:00 Test Item Value Reference Range Interpretation Comments Basophils (test code = 1.3 See_Comment [Aut omated message] The Basophils) system which ge nerated this result tra nsmitted reference range : <=1.0. The reference r patria was not used to int erpret this result as normal/abnormal . [facility] CenterRhkrwoiTGPRGKDNZO9570-43-55 05:45:00 Test Item Value Reference Range Interpretation Comments Neutrophils # (test code = Neutrophils 1.9 1.5-8.1 #) [facility] CenterSjqkvrtHGVVTDDDQF4203-20-39 05:45:00 Test Item Value Reference Range Interpretation Comments Lymphocytes # (test code = Lymphocytes 1.7 1.0-5.5 #) [facility] CenterZhaztfrUXIDPRXKVM6531-23-64 05:45:00 Test Item Value Reference Range Interpretation Comments Monocytes # (test code 0.6 See_Comment [Aut omated message] The = Monocytes #) system which generated this result tra nsmitted reference range : <=0.8. The reference r patria was not used to int erpret this result as normal/abnormal . [facility] CenterLcogdmfJORAUFMDWW8121-12-72 05:45:00 Test Item Value Reference Range Interpretation Comments Eosinophils # (test code 0.2 See_Comment [A utomated message] The = Eosinophils #) system whic h generated this result tra nsmitted reference range : <=0.5. The reference r patria was not used to int erpret this result as normal/abnormal . [facility] CenterHlzxgjuYZWJAONXUN2498-85-17 05:45:00 Test Item Value Reference Range Interpretation Comments Basophils # (test code 0.1 See_Comment [Aut omated message] The = Basophils #) system which generated this result tra nsmitted reference range : <=0.2. The reference r patria was not used to int erpret this result as normal/abnormal . [facility] ServicesJzrimabXLBKLVATPM0268-78-95 05:45:00 Test Item Value Reference Range Interpretation Comments Macrocyte (test code = 1+ *ABN*(07/20/22 Macrocyte) 12:45 AM) [facility] [id number] 05:45:00 Test Item Value Reference Range Interpretation Comments UA Color (test code = Yellow *NA*(07/20/22 UA Color) 12:45 AM) [facility] AND [id number] 05:45:00 Test Item Value Reference Range Interpretation Comments UA Turbidity (test code = Clear (07/20/22 12:45 UA Turbidity) AM) [facility] AND [id number] 05:45:00 Test Item Value Reference Range Interpretation Comments UA Spec Grav (test code = UA Spec 1.010 1 Grav) [facility] AND [id number] 05:45:00 Test Item Value Reference Range Interpretation Comments UA pH (test code = UA pH) 6.0 1 5.0-8.0 [facility] AND [id number] 05:45:00 Test Item Value Reference Range Interpretation Comments UA Protein (test code = UA Negative mg/dL Protein) [facility] AND [id number] 05:45:00 Test Item Value Reference Range Interpretation Comments UA Glucose (test code = UA Negative mg/dL Glucose) [facility] AND [id number] 05:45:00 Test Item Value Reference Range Interpretation Comments UA Ketones (test code = UA Negative mg/dL Ketones) [facility] AND [id number] 05:45:00 Test Item Value Reference Range Interpretation Comments UA Bili (test code = Negative *NA*(07/20/22 UA Bili) 12:45 AM) [facility] AND [id number] 05:45:00 Test Item Value Reference Range Interpretation Comments UA Blood (test code = Negative (07/20/22 12:45 [facility]A Blood) AM) [facility] [id number] 05:45:00 Test Item Value Reference Range Interpretation Comments UA Urobilinogen (test code = UA 0.2 0.1-1.0 Urobilinogen) [facility] [id number] 05:45:00 Test Item Value Reference Range Interpretation Comments UA Nitrite (test code Negative (07/20/22 12:45 = UA Nitrite) AM) [facility] [id number] 05:45:00 Test Item Value Reference Range Interpretation Comments UA Leuk Est (test Negative (07/20/22 12:45 code = UA Leuk Est) AM) [facility] [id number] 05:45:00 Test Item Value Reference Range Interpretation Comments UA Sq Epi (test code Occasional *NA*(07/20/22 = UA Sq Epi) 12:45 AM) [facility] [id number] 05:45:00 Test Item Value Reference Range Interpretation Comments UA WBC (test code = no gt See_Comment [Automa rosendo message] The UA WBC) system which ge nerated this result transmit rosendo reference range : <=5. The reference range was not used to interpr et this result as josi l/abnormal. [facility] [id number] 05:45:00 Test Item Value Reference Range Interpretation Comments UA RBC (test code = 1 See_Comment [Automa rosendo message] The UA RBC) system which ge nerated this result transmit rosendo reference range : <=2. The reference range was not used to interpr et this result as josi l/abnormal. [facility] [id number] 05:45:00 Test Item Value Reference Range Interpretation Comments UA Mucus (test code = UA Mucus) Few /LPF [facility] [id number] 05:45:00 Test Item Value Reference Range Interpretation Comments Magnesium Lvl (test code = Magnesium 2.1 1.8-2.4 Lvl) [facility]annCHE[facility] [id number] 05:45:00 Test Item Value Reference Range Interpretation Comments Phosphorus (test code = Phosphorus) 3.2 2.5-4.5 [facility] TrgrrjoGTBWLMBTTM4865-48-48 05:45:00 Test Item Value Reference Range Interpretation Comments WBC (test code = WBC) 4.5 3.7-10.4 [facility] CenterSscnmvxBMMIWXMFOF3432-80-33 05:45:00 Test Item Value Reference Range Interpretation Comments RBC (test code = RBC) 2.67 4.20-5.40 [facility] CenterUdyogjvHUAFHQGZCA8414-11-04 05:45:00 Test Item Value Reference Range Interpretation Comments Hgb (test code = Hgb) 9.4 12.0-16.0 [facility] CenterZxlgjipCBYNRLQOWM9830-08-39 05:45:00 Test Item Value Reference Range Interpretation Comments Hct (test code = Hct) 27.4 36.0-48.0 [facility] CenterNeqesupMPGHNVSICV4934-03-51 05:45:00 Test Item Value Reference Range Interpretation Comments MCV (test code = MCV) 102.8 80.0-98.0 [facility] CenterYhjmlcrKNSLKZQCGY2301-64-71 05:45:00 Test Item Value Reference Range Interpretation Comments MCH (test code = MCH) 35.3 pg 27.0-31.0 [facility] CenterZfklonbOIIXLAAJEH3852-49-70 05:45:00 Test Item Value Reference Range Interpretation Comments MCHC (test code = MCHC) 34.3 32.0-36.0 [facility] CenterSzhosdgEQXNUAHXTF6163-77-77 05:45:00 Test Item Value Reference Range Interpretation Comments RDW (test code = RDW) 15.8 11.5-14.5 [facility] CenterMvoecrhUQWFWNQLER0867-43-65 05:45:00 Test Item Value Reference Range Interpretation Comments Platelet (test code = Platelet) 207 133-450 [facility] CenterOnkvuvmJNWFISHDEF5689-38-55 05:45:00 Test Item Value Reference Range Interpretation Comments MPV (test code = MPV) 7.3 7.4-10.4 [facility] CenterTtilogvBDLQJTZQHJ1421-90-95 05:45:00 Test Item Value Reference Range Interpretation Comments Segs (test code = Segs) 41.9 45.0-75.0 [facility] CenterUddrwcaHDRVZGBJTL6329-81-91 05:45:00 Test Item Value Reference Range Interpretation Comments Lymphocytes (test code = Lymphocytes) 38.3 20.0-40.0 [facility] CenterPdvreqzPFHENPEAPS1067-03-58 05:45:00 Test Item Value Reference Range Interpretation Comments Monocytes (test code = Monocytes) 13.8 2.0-12.0 [place] 519362-09-09 05:45:00 Test Item Value Reference Range Interpretation Comments Eosinophils (test code = 4.7 See_Comment [A utomated message] The Eosinophils) system which ge nerated this result tra nsmitted reference range : <=4.0. The reference r patria was not used to int erpret this result as normal/abnormal . [facility] CenterYxrvaasFNGLOTRLHM4246-80-95 05:45:00 Test Item Value Reference Range Interpretation Comments Basophils (test code = 1.3 See_Comment [Aut omated message] The Basophils) system which ge nerated this result tra nsmitted reference range : <=1.0. The reference r patria was not used to int erpret this result as normal/abnormal . [facility] CenterOnnzolaHRVGUZZTLW1625-43-66 05:45:00 Test Item Value Reference Range Interpretation Comments Neutrophils # (test code = Neutrophils 1.9 1.5-8.1 #) [facility] CenterRampwurLSLBXBVKFN3919-42-72 05:45:00 Test Item Value Reference Range Interpretation Comments Lymphocytes # (test code = Lymphocytes 1.7 1.0-5.5 #) [place] 519362-09-09 05:45:00 Test Item Value Reference Range Interpretation Comments Monocytes # (test code 0.6 See_Comment [Aut omated message] The = Monocytes #) system which generated this result tra nsmitted reference range : <=0.8. The reference r patria was not used to int erpret this result as normal/abnormal . [facility] CenterFrectrmQEKGUGLAON4669-19-17 05:45:00 Test Item Value Reference Range Interpretation Comments Eosinophils # (test code 0.2 See_Comment [A utomated message] The = Eosinophils #) system whic h generated this result tra nsmitted reference range : <=0.5. The reference r patria was not used to int erpret this result as normal/abnormal . [facility] CenterUnpqzpkHZLRIVTCOM7354-62-09 05:45:00 Test Item Value Reference Range Interpretation Comments Basophils # (test code 0.1 See_Comment [Aut omated message] The = Basophils #) system which generated this result tra nsmitted reference range : <=0.2. The reference r patria was not used to int erpret this result as normal/abnormal . [facility] CenterWuwlhicRJZNTKWDFZ8589-69-28 05:45:00 Test Item Value Reference Range Interpretation Comments Macrocyte (test code = 1+ *ABN*(07/20/22 Macrocyte) 12:45 AM) [facility] AND [id number] 05:45:00 Test Item Value Reference Range Interpretation Comments UA Color (test code = Yellow *NA*(07/20/22 UA Color) 12:45 AM) [facility] AND [id number] 05:45:00 Test Item Value Reference Range Interpretation Comments UA Turbidity (test code = Clear (07/20/22 12:45 UA Turbidity) AM) [facility] AND [id number] 05:45:00 Test Item Value Reference Range Interpretation Comments UA Spec Grav (test code = UA Spec 1.010 1 Grav) [facility] AND [id number] 05:45:00 Test Item Value Reference Range Interpretation Comments UA pH (test code = UA pH) 6.0 1 5.0-8.0 [facility] AND [id number] 05:45:00 Test Item Value Reference Range Interpretation Comments UA Protein (test code = UA Negative mg/dL Protein) [facility] AND [id number] 05:45:00 Test Item Value Reference Range Interpretation Comments UA Glucose (test code = UA Negative mg/dL Glucose) [facility] AND [id number] 05:45:00 Test Item Value Reference Range Interpretation Comments UA Ketones (test code = UA Negative mg/dL Ketones) [facility] AND LZJTR1303-16-00 05:45:00 Test Item Value Reference Range Interpretation Comments UA Bili (test code = Negative *NA*(07/20/22 UA Bili) 12:45 AM) [facility] AND [id number] 05:45:00 Test Item Value Reference Range Interpretation Comments UA Blood (test code = Negative (07/20/22 12:45 UA Blood) AM) [facility] AND [id number] 05:45:00 Test Item Value Reference Range Interpretation Comments UA Urobilinogen (test code = UA 0.2 0.1-1.0 Urobilinogen) [facility] AND [id number] 05:45:00 Test Item Value Reference Range Interpretation Comments UA Nitrite (test code Negative (07/20/22 12:45 = UA Nitrite) AM) [facility] AND [id number] 05:45:00 Test Item Value Reference Range Interpretation Comments UA Leuk Est (test Negative (07/20/22 12:45 code = UA Leuk Est) AM) [facility] AND [id number] 05:45:00 Test Item Value Reference Range Interpretation Comments UA Sq Epi (test code Occasional *NA*(07/20/22 = UA Sq Epi) 12:45 AM) [facility] AND [id number] 05:45:00 Test Item Value Reference Range Interpretation Comments UA WBC (test code = no gt See_Comment [Automa rosendo message] The UA WBC) system which ge nerated this result transmit rosendo reference range : <=5. The reference range was not used to interpr et this result as josi l/abnormal. [facility] AND [id number] 05:45:00 Test Item Value Reference Range Interpretation Comments UA RBC (test code = 1 See_Comment [Automa rosendo message] The UA RBC) system which ge nerated this result transmit rosendo reference range : <=2. The reference range was not used to interpr et this result as josi l/abnormal. [facility] AND [id number] 05:45:00 Test Item Value Reference Range Interpretation Comments UA Mucus (test code = UA Mucus) Few /LPF [facility] [id number] 05:45:00 Test Item Value Reference Range Interpretation Comments Magnesium Lvl (test code = Magnesium 2.1 1.8-2.4 Lvl) [facility] [id number] 05:45:00 Test Item Value Reference Range Interpretation Comments Phosphorus (test code = Phosphorus) 3.2 2.5-4.5 [facility] OivztgxSYABSJNIHW1034-12-64 05:45:00 Test Item Value Reference Range Interpretation Comments WBC (test code = WBC) 4.5 3.7-10.4 [facility] KsbwaaqDKXZDWAOAB8218-67-95 05:45:00 Test Item Value Reference Range Interpretation Comments RBC (test code = RBC) 2.67 4.20-5.40 [facility] ServicesBqvjflcGWOEROXISK2043-53-41 05:45:00 Test Item Value Reference Range Interpretation Comments Hgb (test code = Hgb) 9.4 12.0-16.0 [facility] CenterUlfvjllXUMZPSYOEX3048-92-72 05:45:00 Test Item Value Reference Range Interpretation Comments Hct (test code = Hct) 27.4 36.0-48.0 [facility] CenterUzivzefGUXSIGRFBE1574-84-62 05:45:00 Test Item Value Reference Range Interpretation Comments MCV (test code = MCV) 102.8 80.0-98.0 [place] 519362-09-09 05:45:00 Test Item Value Reference Range Interpretation Comments MCH (test code = MCH) 35.3 pg 27.0-31.0 [facility] CenterZavxwvfILBHCBNLGJ8370-84-70 05:45:00 Test Item Value Reference Range Interpretation Comments MCHC (test code = MCHC) 34.3 32.0-36.0 [place] 519362-09-09 05:45:00 Test Item Value Reference Range Interpretation Comments RDW (test code = RDW) 15.8 11.5-14.5 [place] 519362-09-09 05:45:00 Test Item Value Reference Range Interpretation Comments Platelet (test code = Platelet) 207 133-450 [facility] CenterXmdisloRKGMMMKUYX3419-77-70 05:45:00 Test Item Value Reference Range Interpretation Comments MPV (test code = MPV) 7.3 7.4-10.4 [place] 519362-09-09 05:45:00 Test Item Value Reference Range Interpretation Comments Segs (test code = Segs) 41.9 45.0-75.0 [place] 519362-09-09 05:45:00 Test Item Value Reference Range Interpretation Comments Lymphocytes (test code = Lymphocytes) 38.3 20.0-40.0 [place] [address]-09-09 05:45:00 Test Item Value Reference Range Interpretation Comments Monocytes (test code = Monocytes) 13.8 2.0-12.0 [place] [address]-09-09 05:45:00 Test Item Value Reference Range Interpretation Comments Eosinophils (test code = 4.7 See_Comment [A utomated message] The Eosinophils) system which ge nerated this result tra nsmitted reference range : <=4.0. The reference r patria was not used to int erpret this result as normal/abnormal . [facility] CenterLgwzdrbUMUGZOWPVG7599-07-02 05:45:00 Test Item Value Reference Range Interpretation Comments Basophils (test code = 1.3 See_Comment [Aut omated message] The Basophils) system which ge nerated this result tra nsmitted reference range : <=1.0. The reference r patria was not used to int erpret this result as normal/abnormal . [facility] CenterRjkwsenSJCCBFQSTS4832-36-76 05:45:00 Test Item Value Reference Range Interpretation Comments Neutrophils # (test code = Neutrophils 1.9 1.5-8.1 #) [facility] CenterFwmkleuZQUPAFTFUY5014-29-48 05:45:00 Test Item Value Reference Range Interpretation Comments Lymphocytes # (test code = Lymphocytes 1.7 1.0-5.5 #) [facility] CenterAdotltbSKQNSKMUZV4894-40-71 05:45:00 Test Item Value Reference Range Interpretation Comments Monocytes # (test code 0.6 See_Comment [Aut omated message] The = Monocytes #) system which generated this result tra nsmitted reference range : <=0.8. The reference r patria was not used to int erpret this result as normal/abnormal . [facility] CenterMacxxdiBFDBQATMZI7502-50-26 05:45:00 Test Item Value Reference Range Interpretation Comments Eosinophils # (test code 0.2 See_Comment [A utomated message] The = Eosinophils #) system whic h generated this result tra nsmitted reference range : <=0.5. The reference r patria was not used to int erpret this result as normal/abnormal . [facility] CenterZafgcalKXNTJEFGIQ4116-51-70 05:45:00 Test Item Value Reference Range Interpretation Comments Basophils # (test code 0.1 See_Comment [Aut omated message] The = Basophils #) system which generated this result tra nsmitted reference range : <=0.2. The reference r patria was not used to int erpret this result as normal/abnormal . [id number] 05:[facility]:00 Test Item Value Reference Range Interpretation Comments Macrocyte (test code = 1+ *ABN*(07/20/22 Macrocyte) 12:45 AM) [facility]2022-09-09 05:45:00 Test Item Value Reference Range Interpretation Comments UA Color (test code = Yellow *NA*(07/20/22 UA Color) 12:45 AM) [facility] AND [id number] 05:45:00 Test Item Value Reference Range Interpretation Comments UA Turbidity (test code = Clear (07/20/22 12:45 UA Turbidity) AM) [facility] AND [id number] 05:45:00 Test Item Value Reference Range Interpretation Comments UA Spec Grav (test code = UA Spec 1.010 1 Grav) [facility] AND [id number] 05:45:00 Test Item Value Reference Range Interpretation Comments UA pH (test code = UA pH) 6.0 1 5.0-8.0 [facility] AND [id number] 05:45:00 Test Item Value Reference Range Interpretation Comments UA Protein (test code = UA Negative mg/dL Protein) [facility] AND [id number] 05:45:00 Test Item Value Reference Range Interpretation Comments UA Glucose (test code = UA Negative mg/dL Glucose) [facility] AND [id number] 05:45:00 Test Item Value Reference Range Interpretation Comments UA Ketones (test code = UA Negative mg/dL Ketones) [facility] AND [id number] 05:45:00 Test Item Value Reference Range Interpretation Comments UA Bili (test code = Negative *NA*(07/20/22 UA Bili) 12:45 AM) [facility] AND [id number] 05:45:00 Test Item Value Reference Range Interpretation Comments UA Blood (test code = Negative (07/20/22 12:45 UA Blood) AM) [facility] AND [id number] 05:45:00 Test Item Value Reference Range Interpretation Comments UA Urobilinogen (test code = UA 0.2 0.1-1.0 Urobilinogen) [facility] AND [id number] 05:45:00 Test Item Value Reference Range Interpretation Comments UA Nitrite (test code Negative (07/20/22 12:45 = UA Nitrite) AM) [facility] AND [id number] 05:45:00 Test Item Value Reference Range Interpretation Comments UA Leuk Est (test Negative (07/20/22 12:45 code = UA Leuk Est) AM) [facility] AND [id number] 05:45:00 Test Item Value Reference Range Interpretation Comments UA Sq Epi (test code Occasional *NA*(07/20/22 = UA Sq Epi) 12:45 AM) [facility] AND [id number] 05:45:00 Test Item Value Reference Range Interpretation Comments UA WBC (test code = no gt See_Comment [Automa rosendo message] The UA WBC) system which ge nerated this result transmit rosendo reference range : <=5. The reference range was not used to interpr et this result as josi l/abnormal. [facility] AND [id number] 05:45:00 Test Item Value Reference Range Interpretation Comments UA RBC (test code = 1 See_Comment [Automa rosendo message] The UA RBC) system which ge nerated this result transmit rosendo reference range : <=2. The reference range was not used to interpr et this result as josi l/abnormal. [facility] AND [id number] 05:45:00 Test Item Value Reference Range Interpretation Comments UA Mucus (test code = UA Mucus) Few /LPF [facility] [id number] 05:45:00 Test Item Value Reference Range Interpretation Comments Magnesium Lvl (test code = Magnesium 2.1 1.8-2.4 Lvl) [facility] [id number] 05:45:00 Test Item Value Reference Range Interpretation Comments Phosphorus (test code = Phosphorus) 3.2 2.5-4.5 [facility] WbrcgumUSJMKTRMJA2121-19-33 05:45:00 Test Item Value Reference Range Interpretation Comments WBC (test code = WBC) 4.5 3.7-10.4 [facility] VmaznmfHLRDHQFWVH2090-32-83 05:45:00 Test Item Value Reference Range Interpretation Comments RBC (test code = RBC) 2.67 4.20-5.40 [facility] LcoassaWDPYLEQEBG7512-79-06 05:45:00 Test Item Value Reference Range Interpretation Comments Hgb (test code = Hgb) 9.4 12.0-16.0 [facility] ServicesJbfrpxnEAGMVZVSUV9510-01-26 05:45:00 Test Item Value Reference Range Interpretation Comments Hct (test code = Hct) 27.4 36.0-48.0 [facility] ServicesTmfhmckPAVWOWFCED6233-00-42 05:45:00 Test Item Value Reference Range Interpretation Comments MCV (test code = MCV) 102.8 80.0-98.0 [place] 519362-09-09 05:45:00 Test Item Value Reference Range Interpretation Comments MCH (test code = MCH) 35.3 pg 27.0-31.0 [place] 519362-09-09 05:45:00 Test Item Value Reference Range Interpretation Comments MCHC (test code = MCHC) 34.3 32.0-36.0 [place] 519362-09-09 05:45:00 Test Item Value Reference Range Interpretation Comments RDW (test code = RDW) 15.8 11.5-14.5 [place] 519362-09-09 05:45:00 Test Item Value Reference Range Interpretation Comments Platelet (test code = Platelet) 207 133-450 [place] 519362-09-09 05:45:00 Test Item Value Reference Range Interpretation Comments MPV (test code = MPV) 7.3 7.4-10.4 [place] 519362-09-09 05:45:00 Test Item Value Reference Range Interpretation Comments Segs (test code = Segs) 41.9 45.0-75.0 [place] 519362-09-09 05:45:00 Test Item Value Reference Range Interpretation Comments Lymphocytes (test code = Lymphocytes) 38.3 20.0-40.0 [place] 519362-09-09 05:45:00 Test Item Value Reference Range Interpretation Comments Monocytes (test code = Monocytes) 13.8 2.0-12.0 [place] 519362-09-09 05:45:00 Test Item Value Reference Range Interpretation Comments Eosinophils (test code = 4.7 See_Comment [A utomated message] The Eosinophils) system which ge nerated this result tra nsmitted reference range : <=4.0. The reference r patria was not used to int erpret this result as normal/abnormal . [place] [address]-09-09 05:45:00 Test Item Value Reference Range Interpretation Comments Basophils (test code = 1.3 See_Comment [Aut omated message] The Basophils) system which ge nerated this result tra nsmitted reference range : <=1.0. The reference r patria was not used to int erpret this result as normal/abnormal . [facility]BehfzsoNFNKOZYBHG9403-16-24 05:45:00 Test Item Value Reference Range Interpretation Comments Neutrophils # (test code = Neutrophils 1.9 1.5-8.1 #) [facility] CenterVixxicuSJCGRWENVM6023-10-90 05:45:00 Test Item Value Reference Range Interpretation Comments Lymphocytes # (test code = Lymphocytes 1.7 1.0-5.5 #) [facility] CenterYkswjraXIKABNGOGW5876-93-52 05:45:00 Test Item Value Reference Range Interpretation Comments Monocytes # (test code 0.6 See_Comment [Aut omated message] The = Monocytes #) system which generated this result tra nsmitted reference range : <=0.8. The reference r patria was not used to int erpret this result as normal/abnormal . [facility] CenterKqjeaunDQHLPMFFKS4189-92-56 05:45:00 Test Item Value Reference Range Interpretation Comments Eosinophils # (test code 0.2 See_Comment [A utomated message] The = Eosinophils #) system whic h generated this result tra nsmitted reference range : <=0.5. The reference r patria was not used to int erpret this result as normal/abnormal . [facility] CenterYcphwqvOZRGBCGZXL6614-36-81 05:45:00 Test Item Value Reference Range Interpretation Comments Basophils # (test code 0.1 See_Comment [Aut omated message] The = Basophils #) system which generated this result tra nsmitted reference range : <=0.2. The reference r patria was not used to int erpret this result as normal/abnormal . [facility] CenterQbhnatpRQTEFLHVRK8407-26-62 05:45:00 Test Item Value Reference Range Interpretation Comments Macrocyte (test code = 1+ *ABN*(07/20/22 Macrocyte) 12:45 AM) [facility] AND [id number] 05:45:00 Test Item Value Reference Range Interpretation Comments UA Color (test code = Yellow *NA*(07/20/22 UA Color) 12:45 AM) [facility] AND [id number] 05:45:00 Test Item Value Reference Range Interpretation Comments UA Turbidity (test code = Clear (07/20/22 12:45 UA Turbidity) AM) [facility] AND [id number] 05:45:00 Test Item Value Reference Range Interpretation Comments UA Spec Grav (test code = UA Spec 1.010 1 Grav) [facility] AND [id number] 05:45:00 Test Item Value Reference Range Interpretation Comments UA pH (test code = UA pH) 6.0 1 5.0-8.0 [facility] AND [id number] 05:45:00 Test Item Value Reference Range Interpretation Comments UA Protein (test code = UA Negative mg/dL Protein) [facility] AND [id number] 05:45:00 Test Item Value Reference Range Interpretation Comments UA Glucose (test code = UA Negative mg/dL Glucose) [facility] AND [id number] 05:45:00 Test Item Value Reference Range Interpretation Comments UA Ketones (test code = UA Negative mg/dL Ketones) [facility] AND [id number] 05:45:00 Test Item Value Reference Range Interpretation Comments UA Bili (test code = Negative *NA*(07/20/22 UA Bili) 12:45 AM) [facility] AND [id number] 05:45:00 Test Item Value Reference Range Interpretation Comments UA Blood (test code = Negative (07/20/22 12:45 UA Blood) AM) [facility] AND [id number] 05:45:00 Test Item Value Reference Range Interpretation Comments UA Urobilinogen (test code = UA 0.2 0.1-1.0 Urobilinogen) [facility] AND [id number] 05:45:00 Test Item Value Reference Range Interpretation Comments UA Nitrite (test code Negative (07/20/22 12:45 = UA Nitrite) AM) [facility] AND [id number] 05:45:00 Test Item Value Reference Range Interpretation Comments UA Leuk Est (test Negative (07/20/22 12:45 code = UA Leuk Est) AM) [facility] AND [id number] 05:45:00 Test Item Value Reference Range Interpretation Comments UA Sq Epi (test code Occasional *NA*(07/20/22 = UA Sq Epi) 12:45 AM) [facility] AND [id number] 05:45:00 Test Item Value Reference Range Interpretation Comments UA WBC (test code = no gt See_Comment [Automa rosendo message] The UA WBC) system which ge nerated this result transmit rosendo reference range : <=5. The reference range was not used to interpr et this result as josi l/abnormal. [facility] [id number] 05:45:00 Test Item Value Reference Range Interpretation Comments UA RBC (test code = 1 See_Comment [Automa rosendo message] The UA RBC) system which ge nerated this result transmit rosendo reference range : <=2. The reference range was not used to interpr et this result as josi l/abnormal. [facility] AND [id number] 05:45:00 Test Item Value Reference Range Interpretation Comments UA Mucus (test code = UA Mucus) Few /LPF [facility] ResourcesSaperionCHEM [id number] 05:45:00 Test Item Value Reference Range Interpretation Comments Magnesium Lvl (test code = Magnesium 2.1 1.8-2.4 Lvl) [facility] [id number] 05:45:00 Test Item Value Reference Range Interpretation Comments Phosphorus (test code = Phosphorus) 3.2 2.5-4.5 [facility] EtnhjfkKAAIVHWMQJ3904-92-83 05:45:00 Test Item Value Reference Range Interpretation Comments WBC (test code = WBC) 4.5 3.7-10.4 [facility] HospitalYcycahwOJZDWVDGPB3479-90-54 05:45:00 Test Item Value Reference Range Interpretation Comments RBC (test code = RBC) 2.67 4.20-5.40 [facility] ServicesAthcunsGRCLKINDSJ9651-67-52 05:45:00 Test Item Value Reference Range Interpretation Comments Hgb (test code = Hgb) 9.4 12.0-16.0 [facility] ServicesCczvdsxFJENGZUOIL9458-05-50 05:45:00 Test Item Value Reference Range Interpretation Comments Hct (test code = Hct) 27.4 36.0-48.0 [facility] HospitalRxkopvdLLLBUXZGAJ4326-65-65 05:45:00 Test Item Value Reference Range Interpretation Comments MCV (test code = MCV) 102.8 80.0-98.0 [facility] ServicesJlwglznMADIWPPKHH9104-70-50 05:45:00 Test Item Value Reference Range Interpretation Comments MCH (test code = MCH) 35.3 pg 27.0-31.0 [facility] ServicesCplmhtqNAUIMYMMRX1271-54-14 05:45:00 Test Item Value Reference Range Interpretation Comments MCHC (test code = MCHC) 34.3 32.0-36.0 [place] 519362-09-09 05:45:00 Test Item Value Reference Range Interpretation Comments RDW (test code = RDW) 15.8 11.5-14.5 [place] 519362-09-09 05:45:00 Test Item Value Reference Range Interpretation Comments Platelet (test code = Platelet) 207 133-450 [facility] CenterVvgqkhqAFZEFTOQUR4707-84-25 05:45:00 Test Item Value Reference Range Interpretation Comments MPV (test code = MPV) 7.3 7.4-10.4 [facility] CenterApmtrodUFNTFARLLL4699-75-22 05:45:00 Test Item Value Reference Range Interpretation Comments Segs (test code = Segs) 41.9 45.0-75.0 [place] 519362-09-09 05:45:00 Test Item Value Reference Range Interpretation Comments Lymphocytes (test code = Lymphocytes) 38.3 20.0-40.0 [place] 519362-09-09 05:45:00 Test Item Value Reference Range Interpretation Comments Monocytes (test code = Monocytes) 13.8 2.0-12.0 [facility] CenterJpgicpzNREMIFGAQV7471-79-39 05:45:00 Test Item Value Reference Range Interpretation Comments Eosinophils (test code = 4.7 See_Comment [A utomated message] The Eosinophils) system which ge nerated this result tra nsmitted reference range : <=4.0. The reference r patria was not used to int erpret this result as normal/abnormal . [facility] CenterOxdexwfQJESSHKBKD7688-14-87 05:45:00 Test Item Value Reference Range Interpretation Comments Basophils (test code = 1.3 See_Comment [Aut omated message] The Basophils) system which ge nerated this result tra nsmitted reference range : <=1.0. The reference r patria was not used to int erpret this result as normal/abnormal . [place] 519362-09-09 05:45:00 Test Item Value Reference Range Interpretation Comments Neutrophils # (test code = Neutrophils 1.9 1.5-8.1 #) [place] 519362-09-09 05:45:00 Test Item Value Reference Range Interpretation Comments Lymphocytes # (test code = Lymphocytes 1.7 1.0-5.5 #) [facility] CenterKegaybaZLYUKZQYGU6816-15-22 05:45:00 Test Item Value Reference Range Interpretation Comments Monocytes # (test code 0.6 See_Comment [Aut omated message] The = Monocytes #) system which generated this result tra nsmitted reference range : <=0.8. The reference r patria was not used to int erpret this result as normal/abnormal . [facility] CenterHjqesjvIYIRLEPXVN9590-08-01 05:45:00 Test Item Value Reference Range Interpretation Comments Eosinophils # (test code 0.2 See_Comment [A utomated message] The = Eosinophils #) system whic h generated this result tra nsmitted reference range : <=0.5. The reference r patria was not used to int erpret this result as normal/abnormal . [facility] CenterKtualirRKYHBCLRSB1393-05-61 05:45:00 Test Item Value Reference Range Interpretation Comments Basophils # (test code 0.1 See_Comment [Aut omated message] The = Basophils #) system which generated this result tra nsmitted reference range : <=0.2. The reference r patria was not used to int erpret this result as normal/abnormal . [facility] CenterWuwubloWWUPSEWMSR1420-87-30 05:45:00 Test Item Value Reference Range Interpretation Comments Macrocyte (test code = 1+ *ABN*(07/20/22 Macrocyte) 12:45 AM) [facility] AND [id number] 05:45:00 Test Item Value Reference Range Interpretation Comments UA Color (test code = Yellow *NA*(07/20/22 UA Color) 12:45 AM) [facility] AND [id number] 05:45:00 Test Item Value Reference Range Interpretation Comments UA Turbidity (test code = Clear (07/20/22 12:45 UA Turbidity) AM) [facility] AND [id number] 05:45:00 Test Item Value Reference Range Interpretation Comments UA Spec Grav (test code = UA Spec 1.010 1 Grav) [facility] AND [id number] 05:45:00 Test Item Value Reference Range Interpretation Comments UA pH (test code = UA pH) 6.0 1 5.0-8.0 [facility] AND [id number] 05:45:00 Test Item Value Reference Range Interpretation Comments UA Protein (test code = UA Negative mg/dL Protein) [facility] AND [id number] 05:45:00 Test Item Value Reference Range Interpretation Comments UA Glucose (test code = UA Negative mg/dL Glucose) [facility] AND [id number] 05:45:00 Test Item Value Reference Range Interpretation Comments UA Ketones (test code = UA Negative mg/dL Ketones) [facility] AND [id number] 05:45:00 Test Item Value Reference Range Interpretation Comments UA Bili (test code = Negative *NA*(07/20/22 UA Bili) 12:45 AM) [facility] AND [id number] 05:45:00 Test Item Value Reference Range Interpretation Comments UA Blood (test code = Negative (07/20/22 12:45 UA Blood) AM) [facility] AND [id number] 05:45:00 Test Item Value Reference Range Interpretation Comments UA Urobilinogen (test code = UA 0.2 0.1-1.0 Urobilinogen) [facility] AND [id number] 05:45:00 Test Item Value Reference Range Interpretation Comments UA Nitrite (test code Negative (07/20/22 12:45 = UA Nitrite) AM) [facility] AND [id number] 05:45:00 Test Item Value Reference Range Interpretation Comments UA Leuk Est (test Negative (07/20/22 12:45 code = UA Leuk Est) AM) [facility] AND [id number] 05:45:00 Test Item Value Reference Range Interpretation Comments UA Sq Epi (test code Occasional *NA*(07/20/22 = UA Sq Epi) 12:45 AM) [facility] AND [id number] 05:45:00 Test Item Value Reference Range Interpretation Comments UA WBC (test code = no gt See_Comment [Automa rosendo message] The UA WBC) system which ge nerated this result transmit rosendo reference range : <=5. The reference range was not used to interpr et this result as josi l/abnormal. [facility] AND [id number] 05:45:00 Test Item Value Reference Range Interpretation Comments UA RBC (test code = 1 See_Comment [Automa rosendo message] The UA RBC) system which ge nerated this result transmit rosendo reference range : <=2. The reference range was not used to interpr et this result as josi l/abnormal. [facility] AND [id number] 05:45:00 Test Item Value Reference Range Interpretation Comments UA Mucus (test code = UA Mucus) Few /LPF [facility] [id number] 05:45:00 Test Item Value Reference Range Interpretation Comments Magnesium Lvl (test code = Magnesium 2.1 1.8-2.4 Lvl) [facility] [id number] 05:45:00 Test Item Value Reference Range Interpretation Comments Phosphorus (test code = Phosphorus) 3.2 2.5-4.5 [facility] CenterYxjfgbvQTUVTWKVQA9398-24-29 05:45:00 Test Item Value Reference Range Interpretation Comments WBC (test code = WBC) 4.5 3.7-10.4 [facility] CenterOnidejdHUFSCSSEET0519-48-12 05:45:00 Test Item Value Reference Range Interpretation Comments RBC (test code = RBC) 2.67 4.20-5.40 [facility] CenterDtbvyzlYVYAZWNFMT8991-82-53 05:45:00 Test Item Value Reference Range Interpretation Comments Hgb (test code = Hgb) 9.4 12.0-16.0 [facility] CenterNrxlwtpDYZFPKFVBX9534-26-22 05:45:00 Test Item Value Reference Range Interpretation Comments Hct (test code = Hct) 27.4 36.0-48.0 [facility] CenterEcmwypvCYPLCBVGPG4617-84-81 05:45:00 Test Item Value Reference Range Interpretation Comments MCV (test code = MCV) 102.8 80.0-98.0 [facility] CenterCfxxurhUNVSIVIKUI7400-69-30 05:45:00 Test Item Value Reference Range Interpretation Comments MCH (test code = MCH) 35.3 pg 27.0-31.0 [facility] CenterAblyrljBSXTSSKEBO4101-73-86 05:45:00 Test Item Value Reference Range Interpretation Comments MCHC (test code = MCHC) 34.3 32.0-36.0 [facility] CenterBzzhdkwLBHWWPPRYQ3139-95-40 05:45:00 Test Item Value Reference Range Interpretation Comments RDW (test code = RDW) 15.8 11.5-14.5 [facility] CenterPxirijgVOUHEUFFOA4455-62-46 05:45:00 Test Item Value Reference Range Interpretation Comments Platelet (test code = Platelet) 207 133-450 [facility] CenterAxvubniHRVPAGWURV9215-60-86 05:45:00 Test Item Value Reference Range Interpretation Comments MPV (test code = MPV) 7.3 7.4-10.4 [place] 519362-09-09 05:45:00 Test Item Value Reference Range Interpretation Comments Segs (test code = Segs) 41.9 45.0-75.0 [place] 519362-09-09 05:45:00 Test Item Value Reference Range Interpretation Comments Lymphocytes (test code = Lymphocytes) 38.3 20.0-40.0 [place] 519362-09-09 05:45:00 Test Item Value Reference Range Interpretation Comments Monocytes (test code = Monocytes) 13.8 2.0-12.0 [place] 519362-09-09 05:45:00 Test Item Value Reference Range Interpretation Comments Eosinophils (test code = 4.7 See_Comment [A utomated message] The Eosinophils) system which ge nerated this result tra nsmitted reference range : <=4.0. The reference r patria was not used to int erpret this result as normal/abnormal . [facility] CenterJxkwetpCGOZCOTJYG3347-53-20 05:45:00 Test Item Value Reference Range Interpretation Comments Basophils (test code = 1.3 See_Comment [Aut omated message] The Basophils) system which ge nerated this result tra nsmitted reference range : <=1.0. The reference r patria was not used to int erpret this result as normal/abnormal . [facility] CenterKpccmtrDEYSAEWUAN7134-85-48 05:45:00 Test Item Value Reference Range Interpretation Comments Neutrophils # (test code = Neutrophils 1.9 1.5-8.1 #) [facility] CenterFtqwbseGXKHXOQDYU5741-99-02 05:45:00 Test Item Value Reference Range Interpretation Comments Lymphocytes # (test code = Lymphocytes 1.7 1.0-5.5 #) [facility] CenterYllhaejTQQOJPPVHF9503-56-02 05:45:00 Test Item Value Reference Range Interpretation Comments Monocytes # (test code 0.6 See_Comment [Aut omated message] The = Monocytes #) system which generated this result tra nsmitted reference range : <=0.8. The reference r patria was not used to int erpret this result as normal/abnormal . [facility] CenterZbxhgcyXPCNFCRDLU4590-29-21 05:45:00 Test Item Value Reference Range Interpretation Comments Eosinophils # (test code 0.2 See_Comment [A utomated message] The = Eosinophils #) system whic h generated this result tra nsmitted reference range : <=0.5. The reference r patria was not used to int erpret this result as normal/abnormal . [facility] CenterWpyfzgrWLCTEPCOJV7652-80-71 05:45:00 Test Item Value Reference Range Interpretation Comments Basophils # (test code 0.1 See_Comment [Aut omated message] The = Basophils #) system which generated this result tra nsmitted reference range : <=0.2. The reference r patria was not used to int erpret this result as normal/abnormal . [facility] CenterOladpkbLXJTPUCKRQ1467-94-84 05:45:00 Test Item Value Reference Range Interpretation Comments Macrocyte (test code = 1+ *ABN*(07/20/22 Macrocyte) 12:45 AM) [facility] AND [id number] 05:45:00 Test Item Value Reference Range Interpretation Comments UA Color (test code = Yellow *NA*(07/20/22 UA Color) 12:45 AM) [facility] AND [id number] 05:45:00 Test Item Value Reference Range Interpretation Comments UA Turbidity (test code = Clear (07/20/22 12:45 UA Turbidity) AM) [facility] AND [id number] 05:45:00 Test Item Value Reference Range Interpretation Comments UA Spec Grav (test code = UA Spec 1.010 1 Grav) [facility] AND [id number] 05:45:00 Test Item Value Reference Range Interpretation Comments UA pH (test code = UA pH) 6.0 1 5.0-8.0 [facility] AND [id number] 05:45:00 Test Item Value Reference Range Interpretation Comments UA Protein (test code = UA Negative mg/dL Protein) [facility] AND [id number] 05:45:00 Test Item Value Reference Range Interpretation Comments UA Glucose (test code = UA Negative mg/dL Glucose) [facility] AND [id number] 05:45:00 Test Item Value Reference Range Interpretation Comments UA Ketones (test code = UA Negative mg/dL Ketones) [facility] [id number] 05:45:00 Test Item Value Reference Range Interpretation Comments UA Bili (test code = Negative *NA*(07/20/22 UA Bili) 12:45 AM) [facility] [id number] 05:45:00 Test Item Value Reference Range Interpretation Comments UA Blood (test code = Negative (07/20/22 12:45 UA Blood) AM) [facility] [id number] 05:45:00 Test Item Value Reference Range Interpretation Comments UA Urobilinogen (test code = UA 0.2 0.1-1.0 Urobilinogen) [facility] [id number] 05:45:00 Test Item Value Reference Range Interpretation Comments UA Nitrite (test code Negative (07/20/22 12:45 = UA Nitrite) AM) [facility] [id number] 05:45:00 Test Item Value Reference Range Interpretation Comments UA Leuk Est (test Negative (07/20/22 12:45 code = UA Leuk Est) AM) [facility] [id number] 05:45:00 Test Item Value Reference Range Interpretation Comments UA Sq Epi (test code Occasional *NA*(07/20/22 = UA Sq Epi) 12:45 AM) [facility] [id number] 05:45:00 Test Item Value Reference Range Interpretation Comments UA WBC (test code = no gt See_Comment [Automa rosendo message] The UA WBC) system which ge nerated this result transmit rosendo reference range : <=5. The reference range was not used to interpr et this result as josi l/abnormal. [facility] [id number] 05:45:00 Test Item Value Reference Range Interpretation Comments UA RBC (test code = 1 See_Comment [Automa rosendo message] The UA RBC) system which ge nerated this result transmit rosendo reference range : <=2. The reference range was not used to interpr et this result as josi l/abnormal. [facility] [id number] 05:45:00 Test Item Value Reference Range Interpretation Comments UA Mucus (test code = UA Mucus) Few /LPF [facility]2022-09-09 05:45:00 Test Item Value Reference Range Interpretation Comments Magnesium Lvl (test code = Magnesium 2.1 1.8-2.4 Lvl) [place] [id number] 05:45:00 Test Item Value Reference Range Interpretation Comments Phosphorus (test code = Phosphorus) 3.2 2.5-4.5 [place] [address]-09-09 05:45:00 Test Item Value Reference Range Interpretation Comments WBC (test code = WBC) 4.5 3.7-10.4 [place] 519362-09-09 05:45:00 Test Item Value Reference Range Interpretation Comments RBC (test code = RBC) 2.67 4.20-5.40 [place] [address]-09-09 05:45:00 Test Item Value Reference Range Interpretation Comments Hgb (test code = Hgb) 9.4 12.0-16.0 [place] 519362-09-09 05:45:00 Test Item Value Reference Range Interpretation Comments Hct (test code = Hct) 27.4 36.0-48.0 [place] 519362-09-09 05:45:00 Test Item Value Reference Range Interpretation Comments MCV (test code = MCV) 102.8 80.0-98.0 [place] 519362-09-09 05:45:00 Test Item Value Reference Range Interpretation Comments MCH (test code = MCH) 35.3 pg 27.0-31.0 [place] 519362-09-09 05:45:00 Test Item Value Reference Range Interpretation Comments MCHC (test code = MCHC) 34.3 32.0-36.0 [place] [address]-09-09 05:45:00 Test Item Value Reference Range Interpretation Comments RDW (test code = RDW) 15.8 11.5-14.5 [place] [address]-09-09 05:45:00 Test Item Value Reference Range Interpretation Comments Platelet (test code = Platelet) 207 133-450 [place] 519362-09-09 05:45:00 Test Item Value Reference Range Interpretation Comments MPV (test code = MPV) 7.3 7.4-10.4 [place] 519362-09-09 05:45:00 Test Item Value Reference Range Interpretation Comments Segs (test code = Segs) 41.9 45.0-75.0 [place] 519362-09-09 05:45:00 Test Item Value Reference Range Interpretation Comments Lymphocytes (test code = Lymphocytes) 38.3 20.0-40.0 [place] 519362-09-09 05:45:00 Test Item Value Reference Range Interpretation Comments Monocytes (test code = Monocytes) 13.8 2.0-12.0 [place] 519362-09-09 05:45:00 Test Item Value Reference Range Interpretation Comments Eosinophils (test code = 4.7 See_Comment [A utomated message] The Eosinophils) system which ge nerated this result tra nsmitted reference range : <=4.0. The reference r patria was not used to int erpret this result as normal/abnormal . [place] 519362-09-09 05:45:00 Test Item Value Reference Range Interpretation Comments Basophils (test code = 1.3 See_Comment [Aut omated message] The Basophils) system which ge nerated this result tra nsmitted reference range : <=1.0. The reference r patria was not used to int erpret this result as normal/abnormal . [place] 519362-09-09 05:45:00 Test Item Value Reference Range Interpretation Comments Neutrophils # (test code = Neutrophils 1.9 1.5-8.1 #) [place] 519362-09-09 05:45:00 Test Item Value Reference Range Interpretation Comments Lymphocytes # (test code = Lymphocytes 1.7 1.0-5.5 #) [place] 519362-09-09 05:45:00 Test Item Value Reference Range Interpretation Comments Monocytes # (test code 0.6 See_Comment [Aut omated message] The = Monocytes #) system which generated this result tra nsmitted reference range : <=0.8. The reference r patria was not used to int erpret this result as normal/abnormal . [place] 519362-09-09 05:45:00 Test Item Value Reference Range Interpretation Comments Eosinophils # (test code 0.2 See_Comment [A utomated message] The = Eosinophils #) system wh h generated this result tra nsmitted reference range : <=0.5. The reference r patria was not used to int erpret this result as normal/abnormal . [facility]xpjpqzVXVMJEYCXJ2048-[facility] 05:45:00 Test Item Value Reference Range Interpretation Comments Basophils # (test code 0.1 See_Comment [Aut omated message] The = Basophils #) system which generated this result tra nsmitted reference range : <=0.2. The reference r patria was not used to int erpret this result as normal/abnormal . [facility] CenterPgxtkgcUSWYGKYNHX3465-82-32 05:45:00 Test Item Value Reference Range Interpretation Comments Macrocyte (test code = 1+ *ABN*(07/20/22 Macrocyte) 12:45 AM) [facility] AND [id number] 05:45:00 Test Item Value Reference Range Interpretation Comments UA Color (test code = Yellow *NA*(07/20/22 UA Color) 12:45 AM) [facility] AND [id number] 05:45:00 Test Item Value Reference Range Interpretation Comments UA Turbidity (test code = Clear (07/20/22 12:45 UA Turbidity) AM) [facility] AND [id number] 05:45:00 Test Item Value Reference Range Interpretation Comments UA Spec Grav (test code = UA Spec 1.010 1 Grav) [facility] AND [id number] 05:45:00 Test Item Value Reference Range Interpretation Comments UA pH (test code = UA pH) 6.0 1 5.0-8.0 [facility] AND [id number] 05:45:00 Test Item Value Reference Range Interpretation Comments UA Protein (test code = UA Negative mg/dL Protein) [facility] AND [id number] 05:45:00 Test Item Value Reference Range Interpretation Comments UA Glucose (test code = UA Negative mg/dL Glucose) [facility] AND [id number] 05:45:00 Test Item Value Reference Range Interpretation Comments UA Ketones (test code = UA Negative mg/dL Ketones) [facility] AND [id number] 05:45:00 Test Item Value Reference Range Interpretation Comments UA Bili (test code = Negative *NA*(07/20/22 UA Bili) 12:45 AM) [facility] AND [id number] 05:45:00 Test Item Value Reference Range Interpretation Comments UA Blood (test code = Negative (07/20/22 12:45 UA Blood) AM) [facility] [id number] 05:45:00 Test Item Value Reference Range Interpretation Comments UA Urobilinogen (test code = UA 0.2 0.1-1.0 Urobilinogen) [facility] [id number] 05:45:00 Test Item Value Reference Range Interpretation Comments UA Nitrite (test code Negative (07/20/22 12:45 = UA Nitrite) AM) [facility] [id number] 05:45:00 Test Item Value Reference Range Interpretation Comments UA Leuk Est (test Negative (07/20/22 12:45 code = UA Leuk Est) AM) [facility] [id number] 05:45:00 Test Item Value Reference Range Interpretation Comments UA Sq Epi (test code Occasional *NA*(07/20/22 = UA Sq Epi) 12:45 AM) [facility] AND [id number] 05:45:00 Test Item Value Reference Range Interpretation Comments UA WBC (test code = no gt See_Comment [Automa rosendo message] The UA WBC) system which ge nerated this result transmit rosendo reference range : <=5. The reference range was not used to interpr et this result as josi l/abnormal. [facility] AND [id number] 05:45:00 Test Item Value Reference Range Interpretation Comments UA RBC (test code = 1 See_Comment [Automa rosendo message] The UA RBC) system which ge nerated this result transmit rosendo reference range : <=2. The reference range was not used to interpr et this result as josi l/abnormal. [facility] [id number] 05:45:00 Test Item Value Reference Range Interpretation Comments UA Mucus (test code = UA Mucus) Few /LPF [facility]annCHE[facility] [id number] 05:45:00 Test Item Value Reference Range Interpretation Comments Magnesium Lvl (test code = Magnesium 2.1 1.8-2.4 Lvl) [facility] [id number] 05:45:00 Test Item Value Reference Range Interpretation Comments Phosphorus (test code = Phosphorus) 3.2 2.5-4.5 [facility] [id number] 05:45:00 Test Item Value Reference Range Interpretation Comments WBC (test code = WBC) 4.5 3.7-10.4 [place] 519362-09-09 05:45:00 Test Item Value Reference Range Interpretation Comments RBC (test code = RBC) 2.67 4.20-5.40 [facility] CenterUkisuhuSBPXARNISV3470-96-52 05:45:00 Test Item Value Reference Range Interpretation Comments Hgb (test code = Hgb) 9.4 12.0-16.0 [place] 519362-09-09 05:45:00 Test Item Value Reference Range Interpretation Comments Hct (test code = Hct) 27.4 36.0-48.0 [place] 519362-09-09 05:45:00 Test Item Value Reference Range Interpretation Comments MCV (test code = MCV) 102.8 80.0-98.0 [place] 519362-09-09 05:45:00 Test Item Value Reference Range Interpretation Comments MCH (test code = MCH) 35.3 pg 27.0-31.0 [facility] CenterDwwfxioDDKVSUOTOK7079-74-03 05:45:00 Test Item Value Reference Range Interpretation Comments MCHC (test code = MCHC) 34.3 32.0-36.0 [facility] CenterFztztsaWLXFZIKNBN6636-81-46 05:45:00 Test Item Value Reference Range Interpretation Comments RDW (test code = RDW) 15.8 11.5-14.5 [facility] CenterXvdgsmpJNVFSLZOTK2697-05-45 05:45:00 Test Item Value Reference Range Interpretation Comments Platelet (test code = Platelet) 207 133-450 [facility] CenterGmvwowaYHULJJVXJQ6834-13-62 05:45:00 Test Item Value Reference Range Interpretation Comments MPV (test code = MPV) 7.3 7.4-10.4 [place] 519362-09-09 05:45:00 Test Item Value Reference Range Interpretation Comments Segs (test code = Segs) 41.9 45.0-75.0 [place] 519362-09-09 05:45:00 Test Item Value Reference Range Interpretation Comments Lymphocytes (test code = Lymphocytes) 38.3 20.0-40.0 [place] 519362-09-09 05:45:00 Test Item Value Reference Range Interpretation Comments Monocytes (test code = Monocytes) 13.8 2.0-12.0 [place] [address]-09-09 05:45:00 Test Item Value Reference Range Interpretation Comments Eosinophils (test code = 4.7 See_Comment [A utomated message] The Eosinophils) system which ge nerated this result tra nsmitted reference range : <=4.0. The reference r patria was not used to int erpret this result as normal/abnormal . [place] 519362-09-09 05:45:00 Test Item Value Reference Range Interpretation Comments Basophils (test code = 1.3 See_Comment [Aut omated message] The Basophils) system which ge nerated this result tra nsmitted reference range : <=1.0. The reference r patria was not used to int erpret this result as normal/abnormal . [place] 519362-09-09 05:45:00 Test Item Value Reference Range Interpretation Comments Neutrophils # (test code = Neutrophils 1.9 1.5-8.1 #) [place] 519362-09-09 05:45:00 Test Item Value Reference Range Interpretation Comments Lymphocytes # (test code = Lymphocytes 1.7 1.0-5.5 #) [place] [address]-09-09 05:45:00 Test Item Value Reference Range Interpretation Comments Monocytes # (test code 0.6 See_Comment [Aut omated message] The = Monocytes #) system which generated this result tra nsmitted reference range : <=0.8. The reference r patria was not used to int erpret this result as normal/abnormal . [place] [address]-09-09 05:45:00 Test Item Value Reference Range Interpretation Comments Eosinophils # (test code 0.2 See_Comment [A utomated message] The = Eosinophils #) system whic h generated this result tra nsmitted reference range : <=0.5. The reference r patria was not used to int erpret this result as normal/abnormal . [place] 519362-09-09 05:45:00 Test Item Value Reference Range Interpretation Comments Basophils # (test code 0.1 See_Comment [Aut omated message] The = Basophils #) system which generated this result tra nsmitted reference range : <=0.2. The reference r patria was not used to int erpret this result as normal/abnormal . [facility]keamdBPYBESMWKT5006-25-[facility] 05:45:00 Test Item Value Reference Range Interpretation Comments Macrocyte (test code = 1+ *ABN*(07/20/22 Macrocyte) 12:45 AM) [facility] AND [id number] 05:45:00 Test Item Value Reference Range Interpretation Comments UA Color (test code = Yellow *NA*(07/20/22 UA Color) 12:45 AM) [facility] AND [id number] 05:45:00 Test Item Value Reference Range Interpretation Comments UA Turbidity (test code = Clear (07/20/22 12:45 UA Turbidity) AM) [facility] AND [id number] 05:45:00 Test Item Value Reference Range Interpretation Comments UA Spec Grav (test code = UA Spec 1.010 1 Grav) [facility] AND [id number] 05:45:00 Test Item Value Reference Range Interpretation Comments UA pH (test code = UA pH) 6.0 1 5.0-8.0 [facility] AND [id number] 05:45:00 Test Item Value Reference Range Interpretation Comments UA Protein (test code = UA Negative mg/dL Protein) [facility] AND [id number] 05:45:00 Test Item Value Reference Range Interpretation Comments UA Glucose (test code = UA Negative mg/dL Glucose) [facility] AND [id number] 05:45:00 Test Item Value Reference Range Interpretation Comments UA Ketones (test code = UA Negative mg/dL Ketones) [facility] AND [id number] 05:45:00 Test Item Value Reference Range Interpretation Comments UA Bili (test code = Negative *NA*(07/20/22 UA Bili) 12:45 AM) [facility] AND [id number] 05:45:00 Test Item Value Reference Range Interpretation Comments UA Blood (test code = Negative (07/20/22 12:45 UA Blood) AM) [facility] AND [id number] 05:45:00 Test Item Value Reference Range Interpretation Comments UA Urobilinogen (test code = UA 0.2 0.1-1.0 Urobilinogen) [facility] AND [id number] 05:45:00 Test Item Value Reference Range Interpretation Comments UA Nitrite (test code Negative (07/20/22 12:45 = UA Nitrite) AM) [facility] [id number] 05:45:00 Test Item Value Reference Range Interpretation Comments UA Leuk Est (test Negative (07/20/22 12:45 code = UA Leuk Est) AM) [facility] [id number] 05:45:00 Test Item Value Reference Range Interpretation Comments UA Sq Epi (test code Occasional *NA*(07/20/22 = UA Sq Epi) 12:45 AM) [facility] [id number] 05:45:00 Test Item Value Reference Range Interpretation Comments UA WBC (test code = no gt See_Comment [Automa rosendo message] The UA WBC) system which ge nerated this result transmit rosendo reference range : <=5. The reference range was not used to interpr et this result as josi l/abnormal. [facility] [id number] 05:45:00 Test Item Value Reference Range Interpretation Comments UA RBC (test code = 1 See_Comment [Automa rosendo message] The UA RBC) system which ge nerated this result transmit rosendo reference range : <=2. The reference range was not used to interpr et this result as josi l/abnormal. [facility] [id number] 05:45:00 Test Item Value Reference Range Interpretation Comments UA Mucus (test code = UA Mucus) Few /LPF [facility]annCHE[facility] [id number] 05:45:00 Test Item Value Reference Range Interpretation Comments Magnesium Lvl (test code = Magnesium 2.1 1.8-2.4 Lvl) [facility]annCHE[facility] [id number] 05:45:00 Test Item Value Reference Range Interpretation Comments Phosphorus (test code = Phosphorus) 3.2 2.5-4.5 [facility] [id number] 05:45:00 Test Item Value Reference Range Interpretation Comments WBC (test code = WBC) 4.5 3.7-10.4 [facility] XhkqfrxTDTYRSWUGD2533-13-33 05:45:00 Test Item Value Reference Range Interpretation Comments RBC (test code = RBC) 2.67 4.20-5.40 [facility] RpfiqngORREVLNAIX2594-00-91 05:45:00 Test Item Value Reference Range Interpretation Comments Hgb (test code = Hgb) 9.4 12.0-16.0 [place] 519362-09-09 05:45:00 Test Item Value Reference Range Interpretation Comments Hct (test code = Hct) 27.4 36.0-48.0 [place] 519362-09-09 05:45:00 Test Item Value Reference Range Interpretation Comments MCV (test code = MCV) 102.8 80.0-98.0 [place] 519362-09-09 05:45:00 Test Item Value Reference Range Interpretation Comments MCH (test code = MCH) 35.3 pg 27.0-31.0 [facility] [id number] 05:45:00 Test Item Value Reference Range Interpretation Comments MCHC (test code = MCHC) 34.3 32.0-36.0 [place] 519362-09-09 05:45:00 Test Item Value Reference Range Interpretation Comments RDW (test code = RDW) 15.8 11.5-14.5 [place] 519362-09-09 05:45:00 Test Item Value Reference Range Interpretation Comments Platelet (test code = Platelet) 207 133-450 [facility] CenterMofqhfoWJSTRIVQUV5523-55-17 05:45:00 Test Item Value Reference Range Interpretation Comments MPV (test code = MPV) 7.3 7.4-10.4 [place] 519362-09-09 05:45:00 Test Item Value Reference Range Interpretation Comments Segs (test code = Segs) 41.9 45.0-75.0 [place] 519362-09-09 05:45:00 Test Item Value Reference Range Interpretation Comments Lymphocytes (test code = Lymphocytes) 38.3 20.0-40.0 [place] 519362-09-09 05:45:00 Test Item Value Reference Range Interpretation Comments Monocytes (test code = Monocytes) 13.8 2.0-12.0 [place] 519362-09-09 05:45:00 Test Item Value Reference Range Interpretation Comments Eosinophils (test code = 4.7 See_Comment [A utomated message] The Eosinophils) system which ge nerated this result tra nsmitted reference range : <=4.0. The reference r patria was not used to int erpret this result as normal/abnormal . [facility] CenterIuuxhtbRHVNWATBWQ8852-21-05 05:45:00 Test Item Value Reference Range Interpretation Comments Basophils (test code = 1.3 See_Comment [Aut omated message] The Basophils) system which ge nerated this result tra nsmitted reference range : <=1.0. The reference r patria was not used to int erpret this result as normal/abnormal . [facility] CenterTcepcsdNUZIHAGLLZ1193-43-45 05:45:00 Test Item Value Reference Range Interpretation Comments Neutrophils # (test code = Neutrophils 1.9 1.5-8.1 #) [facility] CenterGbuotkzOKTFOTBTHB3276-14-33 05:45:00 Test Item Value Reference Range Interpretation Comments Lymphocytes # (test code = Lymphocytes 1.7 1.0-5.5 #) [facility] CenterKpjvfhlTTSAFFYCLV4572-07-56 05:45:00 Test Item Value Reference Range Interpretation Comments Monocytes # (test code 0.6 See_Comment [Aut omated message] The = Monocytes #) system which generated this result tra nsmitted reference range : <=0.8. The reference r patria was not used to int erpret this result as normal/abnormal . [facility] CenterOkxftmzMXLUQHPPBC2533-08-25 05:45:00 Test Item Value Reference Range Interpretation Comments Eosinophils # (test code 0.2 See_Comment [A utomated message] The = Eosinophils #) system whic h generated this result tra nsmitted reference range : <=0.5. The reference r patria was not used to int erpret this result as normal/abnormal . [facility] CenterSudhttlFKVRNQGHLF0389-07-28 05:45:00 Test Item Value Reference Range Interpretation Comments Basophils # (test code 0.1 See_Comment [Aut omated message] The = Basophils #) system which generated this result tra nsmitted reference range : <=0.2. The reference r patria was not used to int erpret this result as normal/abnormal . [facility] CenterSyggwymISFXJEMMGF9048-95-67 05:45:00 Test Item Value Reference Range Interpretation Comments Macrocyte (test code = 1+ *ABN*(07/20/22 Macrocyte) 12:45 AM) [facility] AND [id number] 05:45:00 Test Item Value Reference Range Interpretation Comments UA Color (test code = Yellow *NA*(07/20/22 UA Color) 12:45 AM) [facility] AND [id number] 05:45:00 Test Item Value Reference Range Interpretation Comments UA Turbidity (test code = Clear (07/20/22 12:45 UA Turbidity) AM) [facility] AND [id number] 05:45:00 Test Item Value Reference Range Interpretation Comments UA Spec Grav (test code = UA Spec 1.010 1 Grav) [facility] AND [id number] 05:45:00 Test Item Value Reference Range Interpretation Comments UA pH (test code = UA pH) 6.0 1 5.0-8.0 [facility] AND [id number] 05:45:00 Test Item Value Reference Range Interpretation Comments UA Protein (test code = UA Negative mg/dL Protein) [facility] AND [id number] 05:45:00 Test Item Value Reference Range Interpretation Comments UA Glucose (test code = UA Negative mg/dL Glucose) [facility] AND [id number] 05:45:00 Test Item Value Reference Range Interpretation Comments UA Ketones (test code = UA Negative mg/dL Ketones) [facility] AND [id number] 05:45:00 Test Item Value Reference Range Interpretation Comments UA Bili (test code = Negative *NA*(07/20/22 UA Bili) 12:45 AM) [facility] AND [id number] 05:45:00 Test Item Value Reference Range Interpretation Comments UA Blood (test code = Negative (07/20/22 12:45 UA Blood) AM) [facility] AND [id number] 05:45:00 Test Item Value Reference Range Interpretation Comments UA Urobilinogen (test code = UA 0.2 0.1-1.0 Urobilinogen) [facility] AND [id number] 05:45:00 Test Item Value Reference Range Interpretation Comments UA Nitrite (test code Negative (07/20/22 12:45 = UA Nitrite) AM) [facility] AND [id number] 05:45:00 Test Item Value Reference Range Interpretation Comments UA Leuk Est (test Negative (07/20/22 12:45 code = UA Leuk Est) AM) [facility] [id number] 05:45:00 Test Item Value Reference Range Interpretation Comments UA Sq Epi (test code Occasional *NA*(07/20/22 = UA Sq Epi) 12:45 AM) [facility] [id number] 05:45:00 Test Item Value Reference Range Interpretation Comments UA WBC (test code = no gt See_Comment [Automa rosendo message] The UA WBC) system which ge nerated this result transmit rosendo reference range : <=5. The reference range was not used to interpr et this result as josi l/abnormal. [facility] [id number] 05:45:00 Test Item Value Reference Range Interpretation Comments UA RBC (test code = 1 See_Comment [Automa rosendo message] The UA RBC) system which ge nerated this result transmit rosendo reference range : <=2. The reference range was not used to interpr et this result as josi l/abnormal. [facility] [id number] 05:45:00 Test Item Value Reference Range Interpretation Comments UA Mucus (test code = UA Mucus) Few /LPF [facility] [id number] 05:45:00 Test Item Value Reference Range Interpretation Comments Magnesium Lvl (test code = Magnesium 2.1 1.8-2.4 Lvl) [facility] [id number] 05:45:00 Test Item Value Reference Range Interpretation Comments Phosphorus (test code = Phosphorus) 3.2 2.5-4.5 [facility] ZqvmwkuIUDKSDTWDP2894-58-85 05:45:00 Test Item Value Reference Range Interpretation Comments WBC (test code = WBC) 4.5 3.7-10.4 [facility] UnnjeykMCZNWDJHEX8924-26-82 05:45:00 Test Item Value Reference Range Interpretation Comments RBC (test code = RBC) 2.67 4.20-5.40 [facility] ZzuhxxiFDNAXXFRPY3058-01-22 05:45:00 Test Item Value Reference Range Interpretation Comments Hgb (test code = Hgb) 9.4 12.0-16.0 [facility] QiyghsxFJEWTHGAWV4106-59-58 05:45:00 Test Item Value Reference Range Interpretation Comments Hct (test code = Hct) 27.4 36.0-48.0 [place] 519362-09-09 05:45:00 Test Item Value Reference Range Interpretation Comments MCV (test code = MCV) 102.8 80.0-98.0 [place] 519362-09-09 05:45:00 Test Item Value Reference Range Interpretation Comments MCH (test code = MCH) 35.3 pg 27.0-31.0 [place] 519362-09-09 05:45:00 Test Item Value Reference Range Interpretation Comments MCHC (test code = MCHC) 34.3 32.0-36.0 [place] 519362-09-09 05:45:00 Test Item Value Reference Range Interpretation Comments RDW (test code = RDW) 15.8 11.5-14.5 [place] 519362-09-09 05:45:00 Test Item Value Reference Range Interpretation Comments Platelet (test code = Platelet) 207 133-450 [facility]XOGWLCIOS2888[facility] 05:45:00 Test Item Value Reference Range Interpretation Comments MPV (test code = MPV) 7.3 7.4-10.4 [place] 519362-09-09 05:45:00 Test Item Value Reference Range Interpretation Comments Segs (test code = Segs) 41.9 45.0-75.0 [place] 519362-09-09 05:45:00 Test Item Value Reference Range Interpretation Comments Lymphocytes (test code = Lymphocytes) 38.3 20.0-40.0 [place] 519362-09-09 05:45:00 Test Item Value Reference Range Interpretation Comments Monocytes (test code = Monocytes) 13.8 2.0-12.0 [place] 519362-09-09 05:45:00 Test Item Value Reference Range Interpretation Comments Eosinophils (test code = 4.7 See_Comment [A utomated message] The Eosinophils) system which ge nerated this result tra nsmitted reference range : <=4.0. The reference r patria was not used to int erpret this result as normal/abnormal . [place] 519362-09-09 05:45:00 Test Item Value Reference Range Interpretation Comments Basophils (test code = 1.3 See_Comment [Aut omated message] The Basophils) system which ge nerated this result tra nsmitted reference range : <=1.0. The reference r patria was not used to int erpret this result as normal/abnormal . [id number] 05:45:00 Test Item Value Reference Range Interpretation Comments Neutrophils # (test code = Neutrophils 1.9 1.5-8.1 #) [facility] CenterXjpzjzcFMFBVSHSAH7453-91-78 05:45:00 Test Item Value Reference Range Interpretation Comments Lymphocytes # (test code = Lymphocytes 1.7 1.0-5.5 #) [facility] CenterEtddfvpZSOKCOAZNF7741-01-55 05:45:00 Test Item Value Reference Range Interpretation Comments Monocytes # (test code 0.6 See_Comment [Aut omated message] The = Monocytes #) system which generated this result tra nsmitted reference range : <=0.8. The reference r patria was not used to int erpret this result as normal/abnormal . [facility] CenterBkfhaxuEIBITWIYPW8593-11-93 05:45:00 Test Item Value Reference Range Interpretation Comments Eosinophils # (test code 0.2 See_Comment [A utomated message] The = Eosinophils #) system whic h generated this result tra nsmitted reference range : <=0.5. The reference r patria was not used to int erpret this result as normal/abnormal . [facility] CenterWatwwrwHKFVJAIOUS4112-59-54 05:45:00 Test Item Value Reference Range Interpretation Comments Basophils # (test code 0.1 See_Comment [Aut omated message] The = Basophils #) system which generated this result tra nsmitted reference range : <=0.2. The reference r patria was not used to int erpret this result as normal/abnormal . [facility] CenterHogdnywCQTVXCDTXO2171-11-63 05:45:00 Test Item Value Reference Range Interpretation Comments Macrocyte (test code = 1+ *ABN*(07/20/22 Macrocyte) 12:45 AM) [facility] [id number] 05:45:00 Test Item Value Reference Range Interpretation Comments UA Color (test code = Yellow *NA*(07/20/22 UA Color) 12:45 AM) [facility] [id number] 05:45:00 Test Item Value Reference Range Interpretation Comments UA Turbidity (test code = Clear (07/20/22 12:45 UA Turbidity) AM) [facility] AND [id number] 05:45:00 Test Item Value Reference Range Interpretation Comments UA Spec Grav (test code = UA Spec 1.010 1 Grav) [facility] [id number] 05:45:00 Test Item Value Reference Range Interpretation Comments UA pH (test code = UA pH) 6.0 1 5.0-8.0 [facility] [id number] 05:45:00 Test Item Value Reference Range Interpretation Comments UA Protein (test code = UA Negative mg/dL Protein) [facility] [id number] 05:45:00 Test Item Value Reference Range Interpretation Comments UA Glucose (test code = UA Negative mg/dL Glucose) [facility] [id number] 05:45:00 Test Item Value Reference Range Interpretation Comments UA Ketones (test code = UA Negative mg/dL Ketones) [facility] [id number] 05:45:00 Test Item Value Reference Range Interpretation Comments UA Bili (test code = Negative *NA*(07/20/22 UA Bili) 12:45 AM) [facility] [id number] 05:45:00 Test Item Value Reference Range Interpretation Comments UA Blood (test code = Negative (07/20/22 12:45 UA Blood) AM) [facility] [id number] 05:45:00 Test Item Value Reference Range Interpretation Comments UA Urobilinogen (test code = UA 0.2 0.1-1.0 Urobilinogen) [facility] [id number] 05:45:00 Test Item Value Reference Range Interpretation Comments UA Nitrite (test code Negative (07/20/22 12:45 = UA Nitrite) AM) [facility] [id number] 05:45:00 Test Item Value Reference Range Interpretation Comments UA Leuk Est (test Negative (07/20/22 12:45 code = UA Leuk Est) AM) [facility] AND [id number] 05:45:00 Test Item Value Reference Range Interpretation Comments UA Sq Epi (test code Occasional *NA*(07/20/22 = UA Sq Epi) 12:45 AM) [facility] AND [id number] 05:45:00 Test Item Value Reference Range Interpretation Comments UA WBC (test code = no gt See_Comment [Automa rosendo message] The UA WBC) system which ge nerated this result transmit rosendo reference range : <=5. The reference range was not used to interpr et this result as josi l/abnormal. [facility] [id number] 05:45:00 Test Item Value Reference Range Interpretation Comments UA RBC (test code = 1 See_Comment [Automa rosendo message] The UA RBC) system which ge nerated this result transmit rosendo reference range : <=2. The reference range was not used to interpr et this result as josi l/abnormal. [facility] [id number] 05:45:00 Test Item Value Reference Range Interpretation Comments UA Mucus (test code = UA Mucus) Few /LPF [facility] [id number] 05:45:00 Test Item Value Reference Range Interpretation Comments Magnesium Lvl (test code = Magnesium 2.1 1.8-2.4 Lvl) [facility] [id number] 05:45:00 Test Item Value Reference Range Interpretation Comments Phosphorus (test code = Phosphorus) 3.2 2.5-4.5 [facility] CenterBaumauvBZMROAGJWS3966-29-03 05:45:00 Test Item Value Reference Range Interpretation Comments WBC (test code = WBC) 4.5 3.7-10.4 [facility] CenterFayfmplLHBVIBECXZ0595-16-17 05:45:00 Test Item Value Reference Range Interpretation Comments RBC (test code = RBC) 2.67 4.20-5.40 [place] 519362-09-09 05:45:00 Test Item Value Reference Range Interpretation Comments Hgb (test code = Hgb) 9.4 12.0-16.0 [place] 519362-09-09 05:45:00 Test Item Value Reference Range Interpretation Comments Hct (test code = Hct) 27.4 36.0-48.0 [place] 519362-09-09 05:45:00 Test Item Value Reference Range Interpretation Comments MCV (test code = MCV) 102.8 80.0-98.0 [place] 519362-09-09 05:45:00 Test Item Value Reference Range Interpretation Comments MCH (test code = MCH) 35.3 pg 27.0-31.0 [facility] CenterNyfrdzlFEYEIZIJCB3616-96-29 05:45:00 Test Item Value Reference Range Interpretation Comments MCHC (test code = MCHC) 34.3 32.0-36.0 [facility] CenterXimtkaqKYEJWJUWXQ9849-58-49 05:45:00 Test Item Value Reference Range Interpretation Comments RDW (test code = RDW) 15.8 11.5-14.5 [facility] CenterIylxjtuNOZMXFOIBW4882-44-77 05:45:00 Test Item Value Reference Range Interpretation Comments Platelet (test code = Platelet) 207 133-450 [facility] CenterFzihjneJYJPERIEBX9893-54-56 05:45:00 Test Item Value Reference Range Interpretation Comments MPV (test code = MPV) 7.3 7.4-10.4 [facility] CenterBxqfgnnZUUVMHKGVW8744-65-33 05:45:00 Test Item Value Reference Range Interpretation Comments Segs (test code = Segs) 41.9 45.0-75.0 [facility] CenterTdgzepgNLCMXKQSHR7931-11-35 05:45:00 Test Item Value Reference Range Interpretation Comments Lymphocytes (test code = Lymphocytes) 38.3 20.0-40.0 [place] 519362-09-09 05:45:00 Test Item Value Reference Range Interpretation Comments Monocytes (test code = Monocytes) 13.8 2.0-12.0 [facility] CenterMzxsgmwICANQCEMOM0888-67-58 05:45:00 Test Item Value Reference Range Interpretation Comments Eosinophils (test code = 4.7 See_Comment [A utomated message] The Eosinophils) system which ge nerated this result tra nsmitted reference range : <=4.0. The reference r patria was not used to int erpret this result as normal/abnormal . [facility] CenterJhgctcmPBKMTKGQMK2141-37-10 05:45:00 Test Item Value Reference Range Interpretation Comments Basophils (test code = 1.3 See_Comment [Aut omated message] The Basophils) system which ge nerated this result tra nsmitted reference range : <=1.0. The reference r patria was not used to int erpret this result as normal/abnormal . [facility] CenterKiqfgvbSDLQVTBJUR6629-24-73 05:45:00 Test Item Value Reference Range Interpretation Comments Neutrophils # (test code = Neutrophils 1.9 1.5-8.1 #) [facility] CenterCxusfzgDOHTCLPRUJ8582-87-63 05:45:00 Test Item Value Reference Range Interpretation Comments Lymphocytes # (test code = Lymphocytes 1.7 1.0-5.5 #) [facility] CenterWxnlgywQWKJXXHERF0923-64-47 05:45:00 Test Item Value Reference Range Interpretation Comments Monocytes # (test code 0.6 See_Comment [Aut omated message] The = Monocytes #) system which generated this result tra nsmitted reference range : <=0.8. The reference r patria was not used to int erpret this result as normal/abnormal . [facility] CenterFoyemhpOZGQPYTFQG7790-51-18 05:45:00 Test Item Value Reference Range Interpretation Comments Eosinophils # (test code 0.2 See_Comment [A utomated message] The = Eosinophils #) system whic h generated this result tra nsmitted reference range : <=0.5. The reference r patria was not used to int erpret this result as normal/abnormal . [facility] CenterWkbelhiMTXOONGKCY3797-46-29 05:45:00 Test Item Value Reference Range Interpretation Comments Basophils # (test code 0.1 See_Comment [Aut omated message] The = Basophils #) system which generated this result tra nsmitted reference range : <=0.2. The reference r patria was not used to int erpret this result as normal/abnormal . [facility] CenterAcywfmfGHZQBMDKAL2532-44-26 05:45:00 Test Item Value Reference Range Interpretation Comments Macrocyte (test code = 1+ *ABN*(07/20/22 Macrocyte) 12:45 AM) [facility] [id number] 05:45:00 Test Item Value Reference Range Interpretation Comments UA Color (test code = Yellow *NA*(07/20/22 UA Color) 12:45 AM) [facility] [id number] 05:45:00 Test Item Value Reference Range Interpretation Comments UA Turbidity (test code = Clear (07/20/22 12:45 UA Turbidity) AM) [facility] [id number] 05:45:00 Test Item Value Reference Range Interpretation Comments UA Spec Grav (test code = UA Spec 1.010 1 Grav) [facility] AND [id number] 05:45:00 Test Item Value Reference Range Interpretation Comments UA pH (test code = UA pH) 6.0 1 5.0-8.0 [facility] AND [id number] 05:45:00 Test Item Value Reference Range Interpretation Comments UA Protein (test code = UA Negative mg/dL Protein) [facility] [id number] 05:45:00 Test Item Value Reference Range Interpretation Comments UA Glucose (test code = UA Negative mg/dL Glucose) [facility] [id number] 05:45:00 Test Item Value Reference Range Interpretation Comments UA Ketones (test code = UA Negative mg/dL Ketones) [facility] [id number] 05:45:00 Test Item Value Reference Range Interpretation Comments UA Bili (test code = Negative *NA*(07/20/22 UA Bili) 12:45 AM) [facility] AND [id number] 05:45:00 Test Item Value Reference Range Interpretation Comments UA Blood (test code = Negative (07/20/22 12:45 UA Blood) AM) [facility] [id number] 05:45:00 Test Item Value Reference Range Interpretation Comments UA Urobilinogen (test code = UA 0.2 0.1-1.0 Urobilinogen) [facility] [id number] 05:45:00 Test Item Value Reference Range Interpretation Comments UA Nitrite (test code Negative (07/20/22 12:45 = UA Nitrite) AM) [facility] AND [id number] 05:45:00 Test Item Value Reference Range Interpretation Comments UA Leuk Est (test Negative (07/20/22 12:45 code = UA Leuk Est) AM) [facility] AND [id number] 05:45:00 Test Item Value Reference Range Interpretation Comments UA Sq Epi (test code Occasional *NA*(07/20/22 = UA Sq Epi) 12:45 AM) [facility] AND [id number] 05:45:00 Test Item Value Reference Range Interpretation Comments UA WBC (test code = no gt See_Comment [Automa rosendo message] The UA WBC) system which ge nerated this result transmit rosendo reference range : <=5. The reference range was not used to interpr et this result as josi l/abnormal. [facility] [id number] 05:45:00 Test Item Value Reference Range Interpretation Comments UA RBC (test code = 1 See_Comment [Automa rosendo message] The UA RBC) system which ge nerated this result transmit rosendo reference range : <=2. The reference range was not used to interpr et this result as josi l/abnormal. [facility]2022-09-09 05:45:00 Test Item Value Reference Range Interpretation Comments UA Mucus (test code = UA Mucus) Few /LPF [facility]webZUKPTFQBMV8447-96-73 00:25:00 Test Item Value Reference Range Interpretation Comments Coronavirus (COVID-19) Not Detected (07/19/22 [place] (test code = 7:25 PM) Coronavirus (COVID-19) [place]) [facility]EgvspewHFTWOJQPOA8224-69-13 00:25:00 Test Item Value Reference Range Interpretation Comments Coronavirus (COVID-19) Not Detected (07/19/22 [place] (test code = 7:25 PM) Coronavirus (COVID-19) [place]) [id number] 00:25:00 Test Item Value Reference Range Interpretation Comments Coronavirus (COVID-19) Not Detected (07/19/22 [place] (test code = 7:25 PM) Coronavirus (COVID-19) [place]) [facility] WestUggtbrvNSCQWYNJYL9097-63-17 00:25:00 Test Item Value Reference Range Interpretation Comments Coronavirus (COVID-19) Not Detected (07/19/22 [place] (test code = 7:25 PM) Coronavirus (COVID-19) [place]) [facility] WestTjadpuaYXPWYCVYFW9894-76-48 00:25:00 Test Item Value Reference Range Interpretation Comments Coronavirus (COVID-19) Not Detected (07/19/22 [place] (test code = 7:25 PM) Coronavirus (COVID-19) [place]) [facility] WestXmpzxxlAGBMXJGJUN6732-58-47 00:25:00 Test Item Value Reference Range Interpretation Comments Coronavirus (COVID-19) Not Detected (07/19/22 [place] (test code = 7:25 PM) Coronavirus (COVID-19) [place]) [facility] WestSudeapcHHMNHDXRAK2243-26-75 00:25:00 Test Item Value Reference Range Interpretation Comments Coronavirus (COVID-19) Not Detected (07/19/22 [place] (test code = 7:25 PM) Coronavirus (COVID-19) [place]) [facility] WestDegpwdaZFXTGFGMPE4992-37-94 00:25:00 Test Item Value Reference Range Interpretation Comments Coronavirus (COVID-19) Not Detected (07/19/22 [place] (test code = 7:25 PM) Coronavirus (COVID-19) [place]) [facility] WestAjrzkrbOYAMJAUJEQ4567-21-80 00:25:00 Test Item Value Reference Range Interpretation Comments Coronavirus (COVID-19) Not Detected (07/19/22 [place] (test code = 7:25 PM) Coronavirus (COVID-19) [place]) [facility] WestKqnrrumFWTPQHKFLJ2000-74-24 00:25:00 Test Item Value Reference Range Interpretation Comments Coronavirus (COVID-19) Not Detected (07/19/22 [place] (test code = 7:25 PM) Coronavirus (COVID-19) [place]) [facility] WestAnptesiJOEQKZVUYD9859-61-96 00:25:00 Test Item Value Reference Range Interpretation Comments Coronavirus (COVID-19) Not Detected (07/19/22 [place] (test code = 7:25 PM) Coronavirus (COVID-19) [place]) [facility]2022-09-08 21:53:00 Test Item Value Reference Range Interpretation Comments VITAMIN B1 (THIAMINE) WHOLE BLOOD (test 103 code = VITAMIN B1 (THIAMINE) WHOLE BLOOD) [facility]2022-09-08 21:53:00 Test Item Value Reference Range Interpretation Comments VITAMIN B1 (THIAMINE) WHOLE BLOOD (test 103 code = VITAMIN B1 (THIAMINE) WHOLE BLOOD) [facility]2022-09-08 21:53:00 Test Item Value Reference Range Interpretation Comments VITAMIN B1 (THIAMINE) WHOLE BLOOD (test 103 code = VITAMIN B1 (THIAMINE) WHOLE BLOOD) [facility]2022-09-08 21:53:00 Test Item Value Reference Range Interpretation Comments VITAMIN B1 (THIAMINE) WHOLE BLOOD (test 103 code = VITAMIN B1 (THIAMINE) WHOLE BLOOD) [facility]2022-09-08 21:53:00 Test Item Value Reference Range Interpretation Comments VITAMIN B1 (THIAMINE) WHOLE BLOOD (test 103 code = VITAMIN B1 (THIAMINE) WHOLE BLOOD) [facility]2022-09-08 21:53:00 Test Item Value Reference Range Interpretation Comments VITAMIN B1 (THIAMINE) WHOLE BLOOD (test 103 code = VITAMIN B1 (THIAMINE) WHOLE BLOOD) [place] [id number] 21:53:00 Test Item Value Reference Range Interpretation Comments VITAMIN B1 (THIAMINE) WHOLE BLOOD (test 103 code = VITAMIN B1 (THIAMINE) WHOLE BLOOD) [place] [id number] 21:53:00 Test Item Value Reference Range Interpretation Comments VITAMIN B1 (THIAMINE) WHOLE BLOOD (test 103 code = VITAMIN B1 (THIAMINE) WHOLE BLOOD) [place] [id number] 21:53:00 Test Item Value Reference Range Interpretation Comments VITAMIN B1 (THIAMINE) WHOLE BLOOD (test 103 code = VITAMIN B1 (THIAMINE) WHOLE BLOOD) [place] [id number] 21:53:00 Test Item Value Reference Range Interpretation Comments VITAMIN B1 (THIAMINE) WHOLE BLOOD (test 103 code = VITAMIN B1 (THIAMINE) WHOLE BLOOD) [place] [id number] 21:53:00 Test Item Value Reference Range Interpretation Comments VITAMIN B1 (THIAMINE) WHOLE BLOOD (test 103 code = VITAMIN B1 (THIAMINE) WHOLE BLOOD) [facility]2022-09-08 21:51:00 Test Item Value Reference Range Interpretation Comments Vitamin B12 Lvl (test code = Vitamin 335 B12 Lvl) [facility]2022-09-08 21:51:00 Test Item Value Reference Range Interpretation Comments Folate Lvl (test code = Folate Lvl) 11.0 [place] 519362-09-08 21:51:00 Test Item Value Reference Range Interpretation Comments ACT (TEG) Rapid (test code = ACT (TEG) 105 s 86-118 Rapid) [facility]XhkgiwcDLSZJUTYYN1327-24-37 21:51:00 Test Item Value Reference Range Interpretation Comments Split Point Rapid (test code = Split 0.5 min Point Rapid) [place] 519362-09-08 21:51:00 Test Item Value Reference Range Interpretation Comments R-time Rapid (test code = R-time 0.6 min 0.4-0.7 Rapid) [place] 519362-09-08 21:51:00 Test Item Value Reference Range Interpretation Comments K-time Rapid (test code = K-time 0.8 min 0.6-2.3 Rapid) [place] 519362-09-08 21:51:00 Test Item Value Reference Range Interpretation Comments Angle Rapid (test code = Angle 80 degrees 64-80 Rapid) [facility] CenterKrlajwnTXESMLXHNZ4614-37-90 21:51:00 Test Item Value Reference Range Interpretation Comments Max Amplitude Rapid (test code = Max 72 mm 52-71 Amplitude Rapid) [place] 519362-09-08 21:51:00 Test Item Value Reference Range Interpretation Comments G-value Rapid (test code = G-value 12.6 5.0-11.6 Rapid) [facility] CenterDufinbsJFJRTRWMAW3956-42-40 21:51:00 Test Item Value Reference Range Interpretation Comments Estimated % Lysis Rapid 0.5 See_Comment [Au tomated message] The (test code = Estimated syste m which generated % Lysis Rapid) this result t ransmitted reference range : <=7.5. The reference r patria was not used to int erpret this result as normal/abnormal . [facility]2022-09-08 21:51:00 Test Item Value Reference Range Interpretation Comments Vitamin B12 Lvl (test code = Vitamin 335 B12 Lvl) [facility]2022-09-08 21:51:00 Test Item Value Reference Range Interpretation Comments Folate Lvl (test code = Folate Lvl) 11.0 [place] 519362-09-08 21:51:00 Test Item Value Reference Range Interpretation Comments ACT (TEG) Rapid (test code = ACT (TEG) 105 s 86-118 Rapid) [place] 519362-09-08 21:51:00 Test Item Value Reference Range Interpretation Comments Split Point Rapid (test code = Split 0.5 min Point Rapid) [place] 519362-09-08 21:51:00 Test Item Value Reference Range Interpretation Comments R-time Rapid (test code = R-time 0.6 min 0.4-0.7 Rapid) [place] 519362-09-08 21:51:00 Test Item Value Reference Range Interpretation Comments K-time Rapid (test code = K-time 0.8 min 0.6-2.3 Rapid) [place] 519362-09-08 21:51:00 Test Item Value Reference Range Interpretation Comments Angle Rapid (test code = Angle 80 degrees 64-80 Rapid) [place] 519362-09-08 21:51:00 Test Item Value Reference Range Interpretation Comments Max Amplitude Rapid (test code = Max 72 mm 52-71 Amplitude Rapid) [facility] CenterZpgqvnaDPSKPELROR2429-06-53 21:51:00 Test Item Value Reference Range Interpretation Comments G-value Rapid (test code = G-value 12.6 5.0-11.6 Rapid) [facility] CenterNwqjofrBNFAPNXRSG5086-27-11 21:51:00 Test Item Value Reference Range Interpretation Comments Estimated % Lysis Rapid 0.5 See_Comment [Au tomated message] The (test code = Estimated syste m which generated % Lysis Rapid) this result t ransmitted reference range : <=7.5. The reference r patria was not used to int erpret this result as normal/abnormal . [facility]2022-09-08 21:51:00 Test Item Value Reference Range Interpretation Comments Vitamin B12 Lvl (test code = Vitamin 335 B12 Lvl) [facility]2022-09-08 21:51:00 Test Item Value Reference Range Interpretation Comments Folate Lvl (test code = Folate Lvl) 11.0 [place] 519362-09-08 21:51:00 Test Item Value Reference Range Interpretation Comments ACT (TEG) Rapid (test code = ACT (TEG) 105 s 86-118 Rapid) [place] 519362-09-08 21:51:00 Test Item Value Reference Range Interpretation Comments Split Point Rapid (test code = Split 0.5 min Point Rapid) [place] 519362-09-08 21:51:00 Test Item Value Reference Range Interpretation Comments R-time Rapid (test code = R-time 0.6 min 0.4-0.7 Rapid) [place] 519362-09-08 21:51:00 Test Item Value Reference Range Interpretation Comments K-time Rapid (test code = K-time 0.8 min 0.6-2.3 Rapid) [place] [address]-09-08 21:51:00 Test Item Value Reference Range Interpretation Comments Angle Rapid (test code = Angle 80 degrees 64-80 Rapid) [place] 519362-09-08 21:51:00 Test Item Value Reference Range Interpretation Comments Max Amplitude Rapid (test code = Max 72 mm 52-71 Amplitude Rapid) [place] 519362-09-08 21:51:00 Test Item Value Reference Range Interpretation Comments G-value Rapid (test code = G-value 12.6 5.0-11.6 Rapid) [facility]bjANBPQ[facility]XCYS3614[facility]99-41 21:51:00 Test Item Value Reference Range Interpretation Comments Estimated % Lysis Rapid 0.5 See_Comment [Au tomated message] The (test code = Estimated syste m which generated % Lysis Rapid) this result t ransmitted reference range : <=7.5. The reference r patria was not used to int erpret this result as normal/abnormal . [facility]2022-09-08 21:51:00 Test Item Value Reference Range Interpretation Comments Vitamin B12 Lvl (test code = Vitamin 335 B12 Lvl) [facility]2022-09-08 21:51:00 Test Item Value Reference Range Interpretation Comments Folate Lvl (test code = Folate Lvl) 11.0 [facility]HukrcqwVJUCXKMIAO1521-85-64 21:51:00 Test Item Value Reference Range Interpretation Comments ACT (TEG) Rapid (test code = ACT (TEG) 105 s 86-118 Rapid) [facility] CenterLeublybYLADUALUSR2660-33-54 21:51:00 Test Item Value Reference Range Interpretation Comments Split Point Rapid (test code = Split 0.5 min Point Rapid) [facility] CenterRnuoayuIHAPXBJSSC4910-71-34 21:51:00 Test Item Value Reference Range Interpretation Comments R-time Rapid (test code = R-time 0.6 min 0.4-0.7 Rapid) [place] 519362-09-08 21:51:00 Test Item Value Reference Range Interpretation Comments K-time Rapid (test code = K-time 0.8 min 0.6-2.3 Rapid) [place] 519362-09-08 21:51:00 Test Item Value Reference Range Interpretation Comments Angle Rapid (test code = Angle 80 degrees 64-80 Rapid) [place] 519362-09-08 21:51:00 Test Item Value Reference Range Interpretation Comments Max Amplitude Rapid (test code = Max 72 mm 52-71 Amplitude Rapid) [place] 519362-09-08 21:51:00 Test Item Value Reference Range Interpretation Comments G-value Rapid (test code = G-value 12.6 5.0-11.6 Rapid) [facility] CenterWekfqahULGYIWPEFZ7532-20-13 21:51:00 Test Item Value Reference Range Interpretation Comments Estimated % Lysis Rapid 0.5 See_Comment [Au tomated message] The (test code = Estimated syste m which generated % Lysis Rapid) this result t ransmitted reference range : <=7.5. The reference r patria was not used to int erpret this result as normal/abnormal . [facility]2022-09-08 21:51:00 Test Item Value Reference Range Interpretation Comments Vitamin B12 Lvl (test code = Vitamin 335 B12 Lvl) [facility]2022-09-08 21:51:00 Test Item Value Reference Range Interpretation Comments Folate Lvl (test code = Folate Lvl) 11.0 [facility] CenterXbrflmcEGBUSLWXHI7306-75-54 21:51:00 Test Item Value Reference Range Interpretation Comments ACT (TEG) Rapid (test code = ACT (TEG) 105 s 86-118 Rapid) [place] 519362-09-08 21:51:00 Test Item Value Reference Range Interpretation Comments Split Point Rapid (test code = Split 0.5 min Point Rapid) [facility] CenterAowhuywHGJEVBBDKB4048-25-48 21:51:00 Test Item Value Reference Range Interpretation Comments R-time Rapid (test code = R-time 0.6 min 0.4-0.7 Rapid) [place] 519362-09-08 21:51:00 Test Item Value Reference Range Interpretation Comments K-time Rapid (test code = K-time 0.8 min 0.6-2.3 Rapid) [facility] CenterMjyvlhvSZGQAGMJNZ1744-46-23 21:51:00 Test Item Value Reference Range Interpretation Comments Angle Rapid (test code = Angle 80 degrees 64-80 Rapid) [place] 519362-09-08 21:51:00 Test Item Value Reference Range Interpretation Comments Max Amplitude Rapid (test code = Max 72 mm 52-71 Amplitude Rapid) [place] 519362-09-08 21:51:00 Test Item Value Reference Range Interpretation Comments G-value Rapid (test code = G-value 12.6 5.0-11.6 Rapid) [facility] CenterWnspiyiRRNYGNSTLM6568-45-23 21:51:00 Test Item Value Reference Range Interpretation Comments Estimated % Lysis Rapid 0.5 See_Comment [Au tomated message] The (test code = Estimated syste m which generated % Lysis Rapid) this result t ransmitted reference range : <=7.5. The reference r patria was not used to int erpret this result as normal/abnormal . [facility]2022-09-08 21:51:00 Test Item Value Reference Range Interpretation Comments Vitamin B12 Lvl (test code = Vitamin 335 B12 Lvl) [facility]2022-09-08 21:51:00 Test Item Value Reference Range Interpretation Comments Folate Lvl (test code = Folate Lvl) 11.0 [facility] CenterTimxidyWKWOIIBHKM3604-53-28 21:51:00 Test Item Value Reference Range Interpretation Comments ACT (TEG) Rapid (test code = ACT (TEG) 105 s 86-118 Rapid) [facility] CenterCylmeubINFFTGJKFA7674-26-47 21:51:00 Test Item Value Reference Range Interpretation Comments Split Point Rapid (test code = Split 0.5 min Point Rapid) [facility] CenterRcjcqdxLIDIMHKRFI1079-31-23 21:51:00 Test Item Value Reference Range Interpretation Comments R-time Rapid (test code = R-time 0.6 min 0.4-0.7 Rapid) [facility] CenterAfmxveoMPSQSXFNMM6030-24-43 21:51:00 Test Item Value Reference Range Interpretation Comments K-time Rapid (test code = K-time 0.8 min 0.6-2.3 Rapid) [facility] CenterAuzybjgOTUMKEQBLA9484-16-64 21:51:00 Test Item Value Reference Range Interpretation Comments Angle Rapid (test code = Angle 80 degrees 64-80 Rapid) [facility] CenterBlmwsnmNICPCBISRZ7971-46-25 21:51:00 Test Item Value Reference Range Interpretation Comments Max Amplitude Rapid (test code = Max 72 mm 52-71 Amplitude Rapid) [place] 519362-09-08 21:51:00 Test Item Value Reference Range Interpretation Comments G-value Rapid (test code = G-value 12.6 5.0-11.6 Rapid) [place] 519362-09-08 21:51:00 Test Item Value Reference Range Interpretation Comments Estimated % Lysis Rapid 0.5 See_Comment [Au tomated message] The (test code = Estimated syste m which generated % Lysis Rapid) this result t ransmitted reference range : <=7.5. The reference r patria was not used to int erpret this result as normal/abnormal . [facility]2022-09-08 21:51:00 Test Item Value Reference Range Interpretation Comments Vitamin B12 Lvl (test code = Vitamin 335 B12 Lvl) [facility]2022-09-08 21:51:00 Test Item Value Reference Range Interpretation Comments Folate Lvl (test code = Folate Lvl) 11.0 [facility] CenterKshfbetXNWDAAARWV9295-36-14 21:51:00 Test Item Value Reference Range Interpretation Comments ACT (TEG) Rapid (test code = ACT (TEG) 105 s 86-118 Rapid) [facility] CenterYjmmgjxRERLRXXKVJ2875-85-26 21:51:00 Test Item Value Reference Range Interpretation Comments Split Point Rapid (test code = Split 0.5 min Point Rapid) [facility] CenterLpcbvtgPWXSJZYXPV2699-43-07 21:51:00 Test Item Value Reference Range Interpretation Comments R-time Rapid (test code = R-time 0.6 min 0.4-0.7 Rapid) [facility] CenterPfklfwkOXGOTRKJFW2133-06-81 21:51:00 Test Item Value Reference Range Interpretation Comments K-time Rapid (test code = K-time 0.8 min 0.6-2.3 Rapid) [facility] CenterKzkoiywOYXGGKAZYE7507-75-27 21:51:00 Test Item Value Reference Range Interpretation Comments Angle Rapid (test code = Angle 80 degrees 64-80 Rapid) [facility] CenterWxdqfaxREUHHFFOIJ2923-11-38 21:51:00 Test Item Value Reference Range Interpretation Comments Max Amplitude Rapid (test code = Max 72 mm 52-71 Amplitude Rapid) [facility] CenterJgkxrzfMAVEVSRGUJ0840-70-43 21:51:00 Test Item Value Reference Range Interpretation Comments G-value Rapid (test code = G-value 12.6 5.0-11.6 Rapid) [facility] CenterUfjjlmgWZRXMAOBLF6253-31-50 21:51:00 Test Item Value Reference Range Interpretation Comments Estimated % Lysis Rapid 0.5 See_Comment [Au tomated message] The (test code = Estimated syste m which generated % Lysis Rapid) this result t ransmitted reference range : <=7.5. The reference r patria was not used to int erpret this result as normal/abnormal . [facility]2022-09-08 21:51:00 Test Item Value Reference Range Interpretation Comments Vitamin B12 Lvl (test code = Vitamin 335 B12 Lvl) [facility]2022-09-08 21:51:00 Test Item Value Reference Range Interpretation Comments Folate Lvl (test code = Folate Lvl) 11.0 [facility] CenterMiewuazUVOTJZAVAP0541-12-20 21:51:00 Test Item Value Reference Range Interpretation Comments ACT (TEG) Rapid (test code = ACT (TEG) 105 s 86-118 Rapid) [facility] CenterEwohnuyPYAIXHEHAN5229-20-96 21:51:00 Test Item Value Reference Range Interpretation Comments Split Point Rapid (test code = Split 0.5 min Point Rapid) [facility] CenterMgsxxiiGFCMTPKEXL7595-81-99 21:51:00 Test Item Value Reference Range Interpretation Comments R-time Rapid (test code = R-time 0.6 min 0.4-0.7 Rapid) [facility] CenterCnydsinIJPFABFKMO6378-41-94 21:51:00 Test Item Value Reference Range Interpretation Comments K-time Rapid (test code = K-time 0.8 min 0.6-2.3 Rapid) [facility] CenterEkmolxsRRMMYTOQNP3886-14-88 21:51:00 Test Item Value Reference Range Interpretation Comments Angle Rapid (test code = Angle 80 degrees 64-80 Rapid) [facility] CenterKzjqmjpQIAJZXQYHA2697-40-71 21:51:00 Test Item Value Reference Range Interpretation Comments Max Amplitude Rapid (test code = Max 72 mm 52-71 Amplitude Rapid) [facility] CenterUoiyuxrUCCFUTPIHF5617-67-55 21:51:00 Test Item Value Reference Range Interpretation Comments G-value Rapid (test code = G-value 12.6 5.0-11.6 Rapid) [facility] CenterDxpbhqaVHAOMTOMZU1513-90-77 21:51:00 Test Item Value Reference Range Interpretation Comments Estimated % Lysis Rapid 0.5 See_Comment [Au tomated message] The (test code = Estimated syste m which generated % Lysis Rapid) this result t ransmitted reference range : <=7.5. The reference r patria was not used to int erpret this result as normal/abnormal . [facility]2022-09-08 21:51:00 Test Item Value Reference Range Interpretation Comments Vitamin B12 Lvl (test code = Vitamin 335 B12 Lvl) [facility]2022-09-08 21:51:00 Test Item Value Reference Range Interpretation Comments Folate Lvl (test code = Folate Lvl) 11.0 [facility] CenterQqrumfbRIDMIVTHDF6358-47-99 21:51:00 Test Item Value Reference Range Interpretation Comments ACT (TEG) Rapid (test code = ACT (TEG) 105 s 86-118 Rapid) [facility] CenterOqvmvhjEVFAXKZXJY1526-61-41 21:51:00 Test Item Value Reference Range Interpretation Comments Split Point Rapid (test code = Split 0.5 min Point Rapid) [facility] CenterDdsvqwiYOBZSONGTM1280-77-43 21:51:00 Test Item Value Reference Range Interpretation Comments R-time Rapid (test code = R-time 0.6 min 0.4-0.7 Rapid) [facility] CenterIvxlgleCSFXPDQBFY8648-96-26 21:51:00 Test Item Value Reference Range Interpretation Comments K-time Rapid (test code = K-time 0.8 min 0.6-2.3 Rapid) [facility] CenterLlxqxroYEAHWGAUOT7854-50-82 21:51:00 Test Item Value Reference Range Interpretation Comments Angle Rapid (test code = Angle 80 degrees 64-80 Rapid) [facility] CenterFgeqquqAJYJXNIBZD0291-44-66 21:51:00 Test Item Value Reference Range Interpretation Comments Max Amplitude Rapid (test code = Max 72 mm 52-71 Amplitude Rapid) [facility] CenterZbkvdokJXWLNWTCKQ0303-63-14 21:51:00 Test Item Value Reference Range Interpretation Comments G-value Rapid (test code = G-value 12.6 5.0-11.6 Rapid) [facility] CenterZewhhtyPPKDVPUNDC2561-49-58 21:51:00 Test Item Value Reference Range Interpretation Comments Estimated % Lysis Rapid 0.5 See_Comment [Au tomated message] The (test code = Estimated syste m which generated % Lysis Rapid) this result t ransmitted reference range : <=7.5. The reference r patria was not used to int erpret this result as normal/abnormal . [facility]2022-09-08 21:51:00 Test Item Value Reference Range Interpretation Comments Vitamin B12 Lvl (test code = Vitamin 335 B12 Lvl) [facility]2022-09-08 21:51:00 Test Item Value Reference Range Interpretation Comments Folate Lvl (test code = Folate Lvl) 11.0 [facility] CenterBdotciiMYMCLCXEZE7059-72-40 21:51:00 Test Item Value Reference Range Interpretation Comments ACT (TEG) Rapid (test code = ACT (TEG) 105 s 86-118 Rapid) [facility] CenterZgrtkfsPPTRCWCMIT7641-50-84 21:51:00 Test Item Value Reference Range Interpretation Comments Split Point Rapid (test code = Split 0.5 min Point Rapid) [facility] CenterWdbhjtbWGCTOBIDHN0073-03-46 21:51:00 Test Item Value Reference Range Interpretation Comments R-time Rapid (test code = R-time 0.6 min 0.4-0.7 Rapid) [facility] CenterOrrtgcdGGLWOSPBWV6845-85-42 21:51:00 Test Item Value Reference Range Interpretation Comments K-time Rapid (test code = K-time 0.8 min 0.6-2.3 Rapid) [facility] CenterFdnswxnAKDDLPRZHV2611-68-12 21:51:00 Test Item Value Reference Range Interpretation Comments Angle Rapid (test code = Angle 80 degrees 64-80 Rapid) [facility] CenterEyzcmflMUVWJIGZZQ8604-72-40 21:51:00 Test Item Value Reference Range Interpretation Comments Max Amplitude Rapid (test code = Max 72 mm 52-71 Amplitude Rapid) [facility] CenterXfnehfqWZIFBRDWLI9832-63-08 21:51:00 Test Item Value Reference Range Interpretation Comments G-value Rapid (test code = G-value 12.6 5.0-11.6 Rapid) [facility] CenterSvobrrnVYSEANHSMV5014-98-11 21:51:00 Test Item Value Reference Range Interpretation Comments Estimated % Lysis Rapid 0.5 See_Comment [Au tomated message] The (test code = Estimated syste m which generated % Lysis Rapid) this result t ransmitted reference range : <=7.5. The reference r patria was not used to int erpret this result as normal/abnormal . [facility]2022-09-08 21:51:00 Test Item Value Reference Range Interpretation Comments Vitamin B12 Lvl (test code = Vitamin 335 B12 Lvl) [facility]2022-09-08 21:51:00 Test Item Value Reference Range Interpretation Comments Folate Lvl (test code = Folate Lvl) 11.0 [facility] CenterZmkezslVONLDGWYGI8396-84-82 21:51:00 Test Item Value Reference Range Interpretation Comments ACT (TEG) Rapid (test code = ACT (TEG) 105 s 86-118 Rapid) [facility] CenterEprfgpqAFYNFBOFDV7845-48-26 21:51:00 Test Item Value Reference Range Interpretation Comments Split Point Rapid (test code = Split 0.5 min Point Rapid) [facility] CenterNkbesmsWBIGBUQWJI1848-56-68 21:51:00 Test Item Value Reference Range Interpretation Comments R-time Rapid (test code = R-time 0.6 min 0.4-0.7 Rapid) [facility] CenterNrankieVDRZMOJSFV9113-21-07 21:51:00 Test Item Value Reference Range Interpretation Comments K-time Rapid (test code = K-time 0.8 min 0.6-2.3 Rapid) [facility] CenterUnpnexdBOHAXVMJMM1836-42-86 21:51:00 Test Item Value Reference Range Interpretation Comments Angle Rapid (test code = Angle 80 degrees 64-80 Rapid) [facility] CenterKnkqnffBVDZEKGTMU0496-68-22 21:51:00 Test Item Value Reference Range Interpretation Comments Max Amplitude Rapid (test code = Max 72 mm 52-71 Amplitude Rapid) [facility] CenterInllpuaXDDSKRVIOQ1392-10-04 21:51:00 Test Item Value Reference Range Interpretation Comments G-value Rapid (test code = G-value 12.6 5.0-11.6 Rapid) [facility] CenterRomyhcpGLXWZHLPKQ9450-51-70 21:51:00 Test Item Value Reference Range Interpretation Comments Estimated % Lysis Rapid 0.5 See_Comment [Au tomated message] The (test code = Estimated syste m which generated % Lysis Rapid) this result t ransmitted reference range : <=7.5. The reference r patria was not used to int erpret this result as normal/abnormal . [facility]WonderflowAC JQDIPQQ4196-39-92 07:07:00 Test Item Value Reference Range Interpretation Comments HS Troponin I (test code = HS Troponin 8 I) [facility] [id number] 07:07:00 Test Item Value Reference Range Interpretation Comments Total Protein (test code = Total 7.1 6.4-8.4 Protein) [facility] GOQMK7568-77-46 07:07:00 Test Item Value Reference Range Interpretation Comments Albumin Lvl (test code = Albumin Lvl) 3.0 3.5-5.0 [facility] [id number] 07:07:00 Test Item Value Reference Range Interpretation Comments ALT (test code = ALT) 42 See_Comment [Auto mated message] The system which ge nerated this result transmit rosendo reference range : <=65. The reference range was not used to interpr et this result as josi l/abnormal. [facility]annRE[facility] [id number] 07:07:00 Test Item Value Reference Range Interpretation Comments AST (test code = AST) 40 See_Comment [Auto mated message] The system which ge nerated this result transmit rosendo reference range : <=37. The reference range was not used to interpr et this result as josi l/abnormal. [facility] [id number] 07:07:00 Test Item Value Reference Range Interpretation Comments Alk Phos (test code = Alk Phos) 110 39-136 [facility] [id number] 07:07:00 Test Item Value Reference Range Interpretation Comments Bili Total (test code = Bili Total) 0.2 0.2-1.3 [facility] [id number] 07:07:00 Test Item Value Reference Range Interpretation Comments B/C Ratio (test code = B/C Ratio) 33 1 6-25 [facility] [id number] 07:07:00 Test Item Value Reference Range Interpretation Comments Globulin (test code = Globulin) 4.1 2.7-4.2 [facility] [id number] 07:07:00 Test Item Value Reference Range Interpretation Comments A/G Ratio (test code = A/G Ratio) 0.7 1 0.7-1.6 [facility] HospitalDhthdanAWZJMRDWSZ4810-47-43 07:07:00 Test Item Value Reference Range Interpretation Comments WBC (test code = WBC) 5.6 3.7-10.4 [place] 519362-09-08 07:07:00 Test Item Value Reference Range Interpretation Comments RBC (test code = RBC) 3.00 4.20-5.40 [place] [address]-09-08 07:07:00 Test Item Value Reference Range Interpretation Comments Hgb (test code = Hgb) 10.2 12.0-16.0 [facility] HospitalDupytzfXUIWSMQVOF3404-06-20 07:07:00 Test Item Value Reference Range Interpretation Comments Hct (test code = Hct) 31.1 36.0-48.0 [place] [address]-09-08 07:07:00 Test Item Value Reference Range Interpretation Comments MCV (test code = MCV) 103.8 80.0-98.0 [facility] HospitalWhsfsopJHABXGGCLX6926-68-70 07:07:00 Test Item Value Reference Range Interpretation Comments MCH (test code = MCH) 34.1 pg 27.0-31.0 [place] 519362-09-08 07:07:00 Test Item Value Reference Range Interpretation Comments MCHC (test code = MCHC) 32.8 32.0-36.0 [place] 519362-09-08 07:07:00 Test Item Value Reference Range Interpretation Comments RDW (test code = RDW) 16.0 11.5-14.5 [place] 519362-09-08 07:07:00 Test Item Value Reference Range Interpretation Comments Platelet (test code = Platelet) 258 133-450 [facility] CenterOjinpdpXODRNYNLCZ4317-08-60 07:07:00 Test Item Value Reference Range Interpretation Comments MPV (test code = MPV) 7.4 7.4-10.4 [place] 519362-09-08 07:07:00 Test Item Value Reference Range Interpretation Comments Segs (test code = Segs) 49.0 45.0-75.0 [place] 519362-09-08 07:07:00 Test Item Value Reference Range Interpretation Comments Lymphocytes (test code = Lymphocytes) 34.3 20.0-40.0 [place] 519362-09-08 07:07:00 Test Item Value Reference Range Interpretation Comments Monocytes (test code = Monocytes) 11.3 2.0-12.0 [place] 519362-09-08 07:07:00 Test Item Value Reference Range Interpretation Comments Eosinophils (test code = 4.0 See_Comment [A utomated message] The Eosinophils) system which ge nerated this result tra nsmitted reference range : <=4.0. The reference r patria was not used to int erpret this result as normal/abnormal . [place] 519362-09-08 07:07:00 Test Item Value Reference Range Interpretation Comments Basophils (test code = 1.4 See_Comment [Aut omated message] The Basophils) system which ge nerated this result tra nsmitted reference range : <=1.0. The reference r patria was not used to int erpret this result as normal/abnormal . [place] 519362-09-08 07:07:00 Test Item Value Reference Range Interpretation Comments Neutrophils # (test code = Neutrophils 2.7 1.5-8.1 #) [facility] CenterMrzycilLINYKTOHTG5823-75-08 07:07:00 Test Item Value Reference Range Interpretation Comments Lymphocytes # (test code = Lymphocytes 1.9 1.0-5.5 #) [facility] CenterLqbxfykPFWOZXJKNN8240-56-65 07:07:00 Test Item Value Reference Range Interpretation Comments Monocytes # (test code 0.6 See_Comment [Aut omated message] The = Monocytes #) system which generated this result tra nsmitted reference range : <=0.8. The reference r patria was not used to int erpret this result as normal/abnormal . [place] 519362-09-08 07:07:00 Test Item Value Reference Range Interpretation Comments Eosinophils # (test code 0.2 See_Comment [A utomated message] The = Eosinophils #) system whic h generated this result tra nsmitted reference range : <=0.5. The reference r patria was not used to int erpret this result as normal/abnormal . [facility] CenterYldjoieFFYVHWCGYT7287-47-50 07:07:00 Test Item Value Reference Range Interpretation Comments Basophils # (test code 0.1 See_Comment [Aut omated message] The = Basophils #) system which generated this result tra nsmitted reference range : <=0.2. The reference r patria was not used to int erpret this result as normal/abnormal . [facility] CenterHqzoqhjBPUJVABUTZ2991-66-83 07:07:00 Test Item Value Reference Range Interpretation Comments Macrocyte (test code = 1+ *ABN*(07/19/22 2:07 Macrocyte) AM) [place] 519712-09-08 07:07:00 Test Item Value Reference Range Interpretation Comments Trig (test code = Trig) 65 [place] 519712-09-08 07:07:00 Test Item Value Reference Range Interpretation Comments Chol (test code = Chol) 115 [place] 519712-09-08 07:07:00 Test Item Value Reference Range Interpretation Comments HDL (test code = HDL) 71 [place] 519712-09-08 07:07:00 Test Item Value Reference Range Interpretation Comments CHD Risk (test code = CHD Risk) 1.62 1 3.90-5.80 [place] 519712-09-08 07:07:00 Test Item Value Reference Range Interpretation Comments LDL (Calculated) (test code = LDL 31 (Calculated)) [facility]RqgbtupUVELPA2806-45-30 07:07:00 Test Item Value Reference Range Interpretation Comments VLDL (test code = VLDL) 13 [facility] [id number] 07:07:00 Test Item Value Reference Range Interpretation Comments Hgb A1C (test code = Hgb A1C) 5.2 [facility] [id number] 07:07:00 Test Item Value Reference Range Interpretation Comments HS Troponin I (test code = HS Troponin 8 I) [facility] [id number] 07:07:00 Test Item Value Reference Range Interpretation Comments Total Protein (test code = Total 7.1 6.4-8.4 Protein) [facility] [facility] [id number] 07:07:00 Test Item Value Reference Range Interpretation Comments Albumin Lvl (test code = Albumin Lvl) 3.0 3.5-5.0 [email or web address] [id number] 07:07:00 Test Item Value Reference Range Interpretation Comments ALT (test code = ALT) 42 See_Comment [Auto mated message] The system which ge nerated this result transmit rosendo reference range : <=65. The reference range was not used to interpr et this result as josi l/abnormal. [facility] [employer] [id number] 07:07:00 Test Item Value Reference Range Interpretation Comments AST (test code = AST) 40 See_Comment [Auto mated message] The system which ge nerated this result transmit rosendo reference range : <=37. The reference range was not used to interpr et this result as josi l/abnormal. [facility] [employer] [id number] 07:07:00 Test Item Value Reference Range Interpretation Comments Alk Phos (test code = Alk Phos) 110 39-136 [facility] [employer] [id number] 07:07:00 Test Item Value Reference Range Interpretation Comments Bili Total (test code = Bili Total) 0.2 0.2-1.3 [facility] [id number] 07:07:00 Test Item Value Reference Range Interpretation Comments B/C Ratio (test code = B/C Ratio) 33 1 6-25 [facility] [employer] [id number] 07:07:00 Test Item Value Reference Range Interpretation Comments Globulin (test code = Globulin) 4.1 2.7-4.2 [facility]2022-09-08 07:07:00 Test Item Value Reference Range Interpretation Comments A/G Ratio (test code = A/G Ratio) 0.7 1 0.7-1.6 [facility]IknolpeXFSHSRXUNB1445-30-91 07:07:00 Test Item Value Reference Range Interpretation Comments WBC (test code = WBC) 5.6 3.7-10.4 [facility] CenterGzviylcGYUZOTCNTJ7706-02-27 07:07:00 Test Item Value Reference Range Interpretation Comments RBC (test code = RBC) 3.00 4.20-5.40 [place] 519362-09-08 07:07:00 Test Item Value Reference Range Interpretation Comments Hgb (test code = Hgb) 10.2 12.0-16.0 [place] 519362-09-08 07:07:00 Test Item Value Reference Range Interpretation Comments Hct (test code = Hct) 31.1 36.0-48.0 [place] 519362-09-08 07:07:00 Test Item Value Reference Range Interpretation Comments MCV (test code = MCV) 103.8 80.0-98.0 [place] 519362-09-08 07:07:00 Test Item Value Reference Range Interpretation Comments MCH (test code = MCH) 34.1 pg 27.0-31.0 [facility] CenterXdrouqpAFIYMAVBSJ3864-98-94 07:07:00 Test Item Value Reference Range Interpretation Comments MCHC (test code = MCHC) 32.8 32.0-36.0 [facility] CenterVehdivsMNLGJEDIOJ6068-84-46 07:07:00 Test Item Value Reference Range Interpretation Comments RDW (test code = RDW) 16.0 11.5-14.5 [place] 519362-09-08 07:07:00 Test Item Value Reference Range Interpretation Comments Platelet (test code = Platelet) 258 133-450 [facility] CenterJcmxjphBIDVDJUKTW4685-99-18 07:07:00 Test Item Value Reference Range Interpretation Comments MPV (test code = MPV) 7.4 7.4-10.4 [place] 519362-09-08 07:07:00 Test Item Value Reference Range Interpretation Comments Segs (test code = Segs) 49.0 45.0-75.0 [facility] CenterJbnqohrOQFUOXHUPR9372-85-86 07:07:00 Test Item Value Reference Range Interpretation Comments Lymphocytes (test code = Lymphocytes) 34.3 20.0-40.0 [facility] CenterHdwgrrlJAZKHDOEVC8796-20-25 07:07:00 Test Item Value Reference Range Interpretation Comments Monocytes (test code = Monocytes) 11.3 2.0-12.0 [facility] CenterBylmkquDQHDPEAQIA8278-86-43 07:07:00 Test Item Value Reference Range Interpretation Comments Eosinophils (test code = 4.0 See_Comment [A utomated message] The Eosinophils) system which ge nerated this result tra nsmitted reference range : <=4.0. The reference r patria was not used to int erpret this result as normal/abnormal . [facility] CenterEleooikJSKIJYRWGE3007-03-69 07:07:00 Test Item Value Reference Range Interpretation Comments Basophils (test code = 1.4 See_Comment [Aut omated message] The Basophils) system which ge nerated this result tra nsmitted reference range : <=1.0. The reference r patria was not used to int erpret this result as normal/abnormal . [facility] CenterUghvnvmDLYRXLBXGR8675-48-40 07:07:00 Test Item Value Reference Range Interpretation Comments Neutrophils # (test code = Neutrophils 2.7 1.5-8.1 #) [facility] CenterYjfbbliUNIXTNQDFY0538-44-21 07:07:00 Test Item Value Reference Range Interpretation Comments Lymphocytes # (test code = Lymphocytes 1.9 1.0-5.5 #) [place] 519362-09-08 07:07:00 Test Item Value Reference Range Interpretation Comments Monocytes # (test code 0.6 See_Comment [Aut omated message] The = Monocytes #) system which generated this result tra nsmitted reference range : <=0.8. The reference r patria was not used to int erpret this result as normal/abnormal . [facility] CenterBajnutkLUWYODUJWD4755-89-54 07:07:00 Test Item Value Reference Range Interpretation Comments Eosinophils # (test code 0.2 See_Comment [A utomated message] The = Eosinophils #) system whic h generated this result tra nsmitted reference range : <=0.5. The reference r patria was not used to int erpret this result as normal/abnormal . [facility] HospitalDtvddsdGGNFIIODRA9558-71-87 07:07:00 Test Item Value Reference Range Interpretation Comments Basophils # (test code 0.1 See_Comment [Aut omated message] The = Basophils #) system which generated this result tra nsmitted reference range : <=0.2. The reference r patria was not used to int erpret this result as normal/abnormal . [facility] HospitalChnpfnjUKOZBIYRZL8767-40-46 07:07:00 Test Item Value Reference Range Interpretation Comments Macrocyte (test code = 1+ *ABN*(07/19/22 2:07 Macrocyte) AM) [facility] HospitalRidnsnzRRLNMF2456-62-38 07:07:00 Test Item Value Reference Range Interpretation Comments Trig (test code = Trig) 65 [facility] ResourcesYebupyyIGBTHF7785-07-66 07:07:00 Test Item Value Reference Range Interpretation Comments Chol (test code = Chol) 115 [facility] HospitalMlsjflhKXAIRG2611-32-26 07:07:00 Test Item Value Reference Range Interpretation Comments HDL (test code = HDL) 71 [facility] ResourcesWksuiciRKGVUC8138-87-86 07:07:00 Test Item Value Reference Range Interpretation Comments CHD Risk (test code = CHD Risk) 1.62 1 3.90-5.80 [facility] ResourcesSirwrfoNOHWOD8280-89-73 07:07:00 Test Item Value Reference Range Interpretation Comments LDL (Calculated) (test code = LDL 31 (Calculated)) [facility] ResourcesTirzomfVYUQCD5284-13-35 07:07:00 Test Item Value Reference Range Interpretation Comments VLDL (test code = VLDL) 13 1 [facility] [id number] 07:07:00 Test Item Value Reference Range Interpretation Comments Hgb A1C (test code = Hgb A1C) 5.2 [facility] [id number] 07:07:00 Test Item Value Reference Range Interpretation Comments HS Troponin I (test code = HS Troponin 8 I) [facility] [id number] 07:07:00 Test Item Value Reference Range Interpretation Comments Total Protein (test code = Total 7.1 6.4-8.4 Protein) [facility] [id number] 07:07:00 Test Item Value Reference Range Interpretation Comments Albumin Lvl (test code = Albumin Lvl) 3.0 3.5-5.0 [facility] [id number] 07:07:00 Test Item Value Reference Range Interpretation Comments ALT (test code = ALT) 42 See_Comment [Auto mated message] The system which ge nerated this result transmit rosendo reference range : <=65. The reference range was not used to interpr et this result as josi l/abnormal. [facility] [id number] 07:07:00 Test Item Value Reference Range Interpretation Comments AST (test code = AST) 40 See_Comment [Auto mated message] The system which ge nerated this result transmit rosendo reference range : <=37. The reference range was not used to interpr et this result as josi l/abnormal. [facility] [employer] [id number] 07:07:00 Test Item Value Reference Range Interpretation Comments Alk Phos (test code = Alk Phos) 110 39-136 [facility] [employer] [id number] 07:07:00 Test Item Value Reference Range Interpretation Comments Bili Total (test code = Bili Total) 0.2 0.2-1.3 [facility] [id number] 07:07:00 Test Item Value Reference Range Interpretation Comments B/C Ratio (test code = B/C Ratio) 33 1 6-25 [facility] [employer] [id number] 07:07:00 Test Item Value Reference Range Interpretation Comments Globulin (test code = Globulin) 4.1 2.7-4.2 [facility] [employer] [id number] 07:07:00 Test Item Value Reference Range Interpretation Comments A/G Ratio (test code = A/G Ratio) 0.7 1 0.7-1.6 [facility] ResourcesGfhufygGRUYBSJREP7363-06-31 07:07:00 Test Item Value Reference Range Interpretation Comments WBC (test code = WBC) 5.6 3.7-10.4 [facility] ResourcesMycatacAWGXJIIHRH9677-08-12 07:07:00 Test Item Value Reference Range Interpretation Comments RBC (test code = RBC) 3.00 4.20-5.40 [facility] ResourcesZvxmmzpRGPAPSLQKM9434-24-04 07:07:00 Test Item Value Reference Range Interpretation Comments Hgb (test code = Hgb) 10.2 12.0-16.0 [facility] ResourcesSutosvmOARHBTRQPV0007-39-13 07:07:00 Test Item Value Reference Range Interpretation Comments Hct (test code = Hct) 31.1 36.0-48.0 [place] 519362-09-08 07:07:00 Test Item Value Reference Range Interpretation Comments MCV (test code = MCV) 103.8 80.0-98.0 [place] 519362-09-08 07:07:00 Test Item Value Reference Range Interpretation Comments MCH (test code = MCH) 34.1 pg 27.0-31.0 [place] 519362-09-08 07:07:00 Test Item Value Reference Range Interpretation Comments MCHC (test code = MCHC) 32.8 32.0-36.0 [place] 519362-09-08 07:07:00 Test Item Value Reference Range Interpretation Comments RDW (test code = RDW) 16.0 11.5-14.5 [place] 519362-09-08 07:07:00 Test Item Value Reference Range Interpretation Comments Platelet (test code = Platelet) 258 133-450 [facility] CenterIamkveqCJIECPHREC4513-06-01 07:07:00 Test Item Value Reference Range Interpretation Comments MPV (test code = MPV) 7.4 7.4-10.4 [place] 519362-09-08 07:07:00 Test Item Value Reference Range Interpretation Comments Segs (test code = Segs) 49.0 45.0-75.0 [place] 519362-09-08 07:07:00 Test Item Value Reference Range Interpretation Comments Lymphocytes (test code = Lymphocytes) 34.3 20.0-40.0 [place] 519362-09-08 07:07:00 Test Item Value Reference Range Interpretation Comments Monocytes (test code = Monocytes) 11.3 2.0-12.0 [place] 519362-09-08 07:07:00 Test Item Value Reference Range Interpretation Comments Eosinophils (test code = 4.0 See_Comment [A utomated message] The Eosinophils) system which ge nerated this result tra nsmitted reference range : <=4.0. The reference r patria was not used to int erpret this result as normal/abnormal . [place] 519362-09-08 07:07:00 Test Item Value Reference Range Interpretation Comments Basophils (test code = 1.4 See_Comment [Aut omated message] The Basophils) system which ge nerated this result tra nsmitted reference range : <=1.0. The reference r patria was not used to int erpret this result as normal/abnormal . [facility] CenterWcewvjbHGAJOYBDXC1930-18-40 07:07:00 Test Item Value Reference Range Interpretation Comments Neutrophils # (test code = Neutrophils 2.7 1.5-8.1 #) [facility] CenterVsvbvptHCYMHVDRRT6151-78-03 07:07:00 Test Item Value Reference Range Interpretation Comments Lymphocytes # (test code = Lymphocytes 1.9 1.0-5.5 #) [facility] CenterDydwdxnJYCHHLLFWG2335-88-99 07:07:00 Test Item Value Reference Range Interpretation Comments Monocytes # (test code 0.6 See_Comment [Aut omated message] The = Monocytes #) system which generated this result tra nsmitted reference range : <=0.8. The reference r patria was not used to int erpret this result as normal/abnormal . [facility] CenterTqejeqrIDKRBKHDIM3441-70-96 07:07:00 Test Item Value Reference Range Interpretation Comments Eosinophils # (test code 0.2 See_Comment [A utomated message] The = Eosinophils #) system whic h generated this result tra nsmitted reference range : <=0.5. The reference r patria was not used to int erpret this result as normal/abnormal . [facility] CenterQujodqqBHIWTWFJEO2466-47-09 07:07:00 Test Item Value Reference Range Interpretation Comments Basophils # (test code 0.1 See_Comment [Aut omated message] The = Basophils #) system which generated this result tra nsmitted reference range : <=0.2. The reference r patria was not used to int erpret this result as normal/abnormal . [facility] CenterWaxwydvZQDCGCKIQD1878-21-95 07:07:00 Test Item Value Reference Range Interpretation Comments Macrocyte (test code = 1+ *ABN*(07/19/22 2:07 Macrocyte) AM) [place] 519712-09-08 07:07:00 Test Item Value Reference Range Interpretation Comments Trig (test code = Trig) 65 [place] 519712-09-08 07:07:00 Test Item Value Reference Range Interpretation Comments Chol (test code = Chol) 115 [place] [address]-09-08 07:07:00 Test Item Value Reference Range Interpretation Comments HDL (test code = HDL) 71 [facility] HospitalEvthlhlJLICIA5808-11-92 07:07:00 Test Item Value Reference Range Interpretation Comments CHD Risk (test code = CHD Risk) 1.62 1 3.90-5.80 [facility] ResourcesJwlnrsvCABVYB7913-49-35 07:07:00 Test Item Value Reference Range Interpretation Comments LDL (Calculated) (test code = LDL 31 (Calculated)) [facility] HospitalIfhqvcdMUIRAC1443-16-78 07:07:00 Test Item Value Reference Range Interpretation Comments VLDL (test code = VLDL) 13 1 [facility] ODAVYQWNS3156-18-07 07:07:00 Test Item Value Reference Range Interpretation Comments Hgb A1C (test code = Hgb A1C) 5.2 [facility] [id number] 07:07:00 Test Item Value Reference Range Interpretation Comments HS Troponin I (test code = HS Troponin 8 I) [facility] [id number] 07:07:00 Test Item Value Reference Range Interpretation Comments Total Protein (test code = Total 7.1 6.4-8.4 Protein) [facility] [id number] 07:07:00 Test Item Value Reference Range Interpretation Comments Albumin Lvl (test code = Albumin Lvl) 3.0 3.5-5.0 [facility] [employer] [id number] 07:07:00 Test Item Value Reference Range Interpretation Comments ALT (test code = ALT) 42 See_Comment [Auto mated message] The system which ge nerated this result transmit rosendo reference range : <=65. The reference range was not used to interpr et this result as josi l/abnormal. [facility] [employer] [id number] 07:07:00 Test Item Value Reference Range Interpretation Comments AST (test code = AST) 40 See_Comment [Auto mated message] The system which ge nerated this result transmit rosendo reference range : <=37. The reference range was not used to interpr et this result as josi l/abnormal. [facility] [employer] [id number] 07:07:00 Test Item Value Reference Range Interpretation Comments Alk Phos (test code = Alk Phos) 110 39-136 [facility] [id number] 07:07:00 Test Item Value Reference Range Interpretation Comments Bili Total (test code = Bili Total) 0.2 0.2-1.3 [place] 542562-09-08 07:07:00 Test Item Value Reference Range Interpretation Comments B/C Ratio (test code = B/C Ratio) 33 1 6-25 [place] 542562-09-08 07:07:00 Test Item Value Reference Range Interpretation Comments Globulin (test code = Globulin) 4.1 2.7-4.2 [place] 542562-09-08 07:07:00 Test Item Value Reference Range Interpretation Comments A/G Ratio (test code = A/G Ratio) 0.7 1 0.7-1.6 [place] 519362-09-08 07:07:00 Test Item Value Reference Range Interpretation Comments WBC (test code = WBC) 5.6 3.7-10.4 [place] 519362-09-08 07:07:00 Test Item Value Reference Range Interpretation Comments RBC (test code = RBC) 3.00 4.20-5.40 [place] 519362-09-08 07:07:00 Test Item Value Reference Range Interpretation Comments Hgb (test code = Hgb) 10.2 12.0-16.0 [place] 519362-09-08 07:07:00 Test Item Value Reference Range Interpretation Comments Hct (test code = Hct) 31.1 36.0-48.0 [place] 519362-09-08 07:07:00 Test Item Value Reference Range Interpretation Comments MCV (test code = MCV) 103.8 80.0-98.0 [place] [address]-09-08 07:07:00 Test Item Value Reference Range Interpretation Comments MCH (test code = MCH) 34.1 pg 27.0-31.0 [place] 519362-09-08 07:07:00 Test Item Value Reference Range Interpretation Comments MCHC (test code = MCHC) 32.8 32.0-36.0 [place] 519362-09-08 07:07:00 Test Item Value Reference Range Interpretation Comments RDW (test code = RDW) 16.0 11.5-14.5 [place] 519362-09-08 07:07:00 Test Item Value Reference Range Interpretation Comments Platelet (test code = Platelet) 258 133-450 [facility] CenterNyjhppiOLGGOWOSCM0767-69-53 07:07:00 Test Item Value Reference Range Interpretation Comments MPV (test code = MPV) 7.4 7.4-10.4 [facility] CenterXxzvdgmXJOFDGAHTA0819-77-94 07:07:00 Test Item Value Reference Range Interpretation Comments Segs (test code = Segs) 49.0 45.0-75.0 [facility] CenterLjivdlpXRFNKZNQFU5387-90-65 07:07:00 Test Item Value Reference Range Interpretation Comments Lymphocytes (test code = Lymphocytes) 34.3 20.0-40.0 [place] 519362-09-08 07:07:00 Test Item Value Reference Range Interpretation Comments Monocytes (test code = Monocytes) 11.3 2.0-12.0 [place] 519362-09-08 07:07:00 Test Item Value Reference Range Interpretation Comments Eosinophils (test code = 4.0 See_Comment [A utomated message] The Eosinophils) system which ge nerated this result tra nsmitted reference range : <=4.0. The reference r patria was not used to int erpret this result as normal/abnormal . [facility] CenterTklbenmUPSFXVTALN6107-37-81 07:07:00 Test Item Value Reference Range Interpretation Comments Basophils (test code = 1.4 See_Comment [Aut omated message] The Basophils) system which ge nerated this result tra nsmitted reference range : <=1.0. The reference r patria was not used to int erpret this result as normal/abnormal . [facility] CenterFagmswoFKUGKSNLOR2131-99-57 07:07:00 Test Item Value Reference Range Interpretation Comments Neutrophils # (test code = Neutrophils 2.7 1.5-8.1 #) [place] 519362-09-08 07:07:00 Test Item Value Reference Range Interpretation Comments Lymphocytes # (test code = Lymphocytes 1.9 1.0-5.5 #) [place] 519362-09-08 07:07:00 Test Item Value Reference Range Interpretation Comments Monocytes # (test code 0.6 See_Comment [Aut omated message] The = Monocytes #) system which generated this result tra nsmitted reference range : <=0.8. The reference r patria was not used to int erpret this result as normal/abnormal . [facility] HospitalAytgcgrRPIUWOOBRF5589-40-24 07:07:00 Test Item Value Reference Range Interpretation Comments Eosinophils # (test code 0.2 See_Comment [A utomated message] The = Eosinophils #) system whic h generated this result tra nsmitted reference range : <=0.5. The reference r patria was not used to int erpret this result as normal/abnormal . [facility] HospitalFxlgalmWQUUNIRPXB9572-75-07 07:07:00 Test Item Value Reference Range Interpretation Comments Basophils # (test code 0.1 See_Comment [Aut omated message] The = Basophils #) system which generated this result tra nsmitted reference range : <=0.2. The reference r patria was not used to int erpret this result as normal/abnormal . [facility] HospitalXlqwmntLXIOCDGCNR7640-15-88 07:07:00 Test Item Value Reference Range Interpretation Comments Macrocyte (test code = 1+ *ABN*(07/19/22 2:07 Macrocyte) AM) [facility] ResourcesNmazywuOTSEXQ9235-51-64 07:07:00 Test Item Value Reference Range Interpretation Comments Trig (test code = Trig) 65 [facility] ResourcesDnxwemxKGMYSA2916-90-44 07:07:00 Test Item Value Reference Range Interpretation Comments Chol (test code = Chol) 115 [facility] ResourcesRaahjazJWDPML0543-50-21 07:07:00 Test Item Value Reference Range Interpretation Comments HDL (test code = HDL) 71 [facility] ResourcesSlxdkqrRBZJYD1352-33-36 07:07:00 Test Item Value Reference Range Interpretation Comments CHD Risk (test code = CHD Risk) 1.62 1 3.90-5.80 [facility] ResourcesAugwvhgICQKTD2953-48-71 07:07:00 Test Item Value Reference Range Interpretation Comments LDL (Calculated) (test code = LDL 31 (Calculated)) [facility] ResourcesGcmdwijCUJJCE5977-88-67 07:07:00 Test Item Value Reference Range Interpretation Comments VLDL (test code = VLDL) 13 1 [facility] [id number] 07:07:00 Test Item Value Reference Range Interpretation Comments Hgb A1C (test code = Hgb A1C) 5.2 [facility] [id number] 07:07:00 Test Item Value Reference Range Interpretation Comments HS Troponin I (test code = HS Troponin 8 I) [place] 542562-09-08 07:07:00 Test Item Value Reference Range Interpretation Comments Total Protein (test code = Total 7.1 6.4-8.4 Protein) [place] 542562-09-08 07:07:00 Test Item Value Reference Range Interpretation Comments Albumin Lvl (test code = Albumin Lvl) 3.0 3.5-5.0 [place] 542562-09-08 07:07:00 Test Item Value Reference Range Interpretation Comments ALT (test code = ALT) 42 See_Comment [Auto mated message] The system which ge nerated this result transmit rosendo reference range : <=65. The reference range was not used to interpr et this result as josi l/abnormal. [facility] [id number] 07:07:00 Test Item Value Reference Range Interpretation Comments AST (test code = AST) 40 See_Comment [Auto mated message] The system which ge nerated this result transmit rosendo reference range : <=37. The reference range was not used to interpr et this result as josi l/abnormal. [place] 542562-09-08 07:07:00 Test Item Value Reference Range Interpretation Comments Alk Phos (test code = Alk Phos) 110 39-136 [facility] [id number] 07:07:00 Test Item Value Reference Range Interpretation Comments Bili Total (test code = Bili Total) 0.2 0.2-1.3 [facility] [id number] 07:07:00 Test Item Value Reference Range Interpretation Comments B/C Ratio (test code = B/C Ratio) 33 1 6-25 [facility] [id number] 07:07:00 Test Item Value Reference Range Interpretation Comments Globulin (test code = Globulin) 4.1 2.7-4.2 [facility] [id number] 07:07:00 Test Item Value Reference Range Interpretation Comments A/G Ratio (test code = A/G Ratio) 0.7 1 0.7-1.6 [place] [address]-09-08 07:07:00 Test Item Value Reference Range Interpretation Comments WBC (test code = WBC) 5.6 3.7-10.4 [place] 519362-09-08 07:07:00 Test Item Value Reference Range Interpretation Comments RBC (test code = RBC) 3.00 4.20-5.40 [place] 519362-09-08 07:07:00 Test Item Value Reference Range Interpretation Comments Hgb (test code = Hgb) 10.2 12.0-16.0 [place] [address]-09-08 07:07:00 Test Item Value Reference Range Interpretation Comments Hct (test code = Hct) 31.1 36.0-48.0 [place] 519362-09-08 07:07:00 Test Item Value Reference Range Interpretation Comments MCV (test code = MCV) 103.8 80.0-98.0 [place] 519362-09-08 07:07:00 Test Item Value Reference Range Interpretation Comments MCH (test code = MCH) 34.1 pg 27.0-31.0 [place] 519362-09-08 07:07:00 Test Item Value Reference Range Interpretation Comments MCHC (test code = MCHC) 32.8 32.0-36.0 [place] 519362-09-08 07:07:00 Test Item Value Reference Range Interpretation Comments RDW (test code = RDW) 16.0 11.5-14.5 [place] 519362-09-08 07:07:00 Test Item Value Reference Range Interpretation Comments Platelet (test code = Platelet) 258 133-450 [facility]cgsailHNHFFMAFWY1472-72-41 07:07:00 Test Item Value Reference Range Interpretation Comments MPV (test code = MPV) 7.4 7.4-10.4 [place] 519362-09-08 07:07:00 Test Item Value Reference Range Interpretation Comments Segs (test code = Segs) 49.0 45.0-75.0 [place] 519362-09-08 07:07:00 Test Item Value Reference Range Interpretation Comments Lymphocytes (test code = Lymphocytes) 34.3 20.0-40.0 [place] 519362-09-08 07:07:00 Test Item Value Reference Range Interpretation Comments Monocytes (test code = Monocytes) 11.3 2.0-12.0 [place] 519362-09-08 07:07:00 Test Item Value Reference Range Interpretation Comments Eosinophils (test code = 4.0 See_Comment [A utomated message] The Eosinophils) system which ge nerated this result tra nsmitted reference range : <=4.0. The reference r patria was not used to int erpret this result as normal/abnormal . [facility]AenqnffQTDJUJJETD6680-68-11 07:07:00 Test Item Value Reference Range Interpretation Comments Basophils (test code = 1.4 See_Comment [Aut omated message] The Basophils) system which ge nerated this result tra nsmitted reference range : <=1.0. The reference r patria was not used to int erpret this result as normal/abnormal . [facility] CenterTqkzstpFPKPYQHFJO8145-99-09 07:07:00 Test Item Value Reference Range Interpretation Comments Neutrophils # (test code = Neutrophils 2.7 1.5-8.1 #) [facility] CenterPxlcoudMGWGGCQIAW3336-44-98 07:07:00 Test Item Value Reference Range Interpretation Comments Lymphocytes # (test code = Lymphocytes 1.9 1.0-5.5 #) [facility] CenterLpibvbgMEFEEIZWFY2641-32-97 07:07:00 Test Item Value Reference Range Interpretation Comments Monocytes # (test code 0.6 See_Comment [Aut omated message] The = Monocytes #) system which generated this result tra nsmitted reference range : <=0.8. The reference r patria was not used to int erpret this result as normal/abnormal . [facility] CenterZfkxrzeDHXREUYZYE9017-62-98 07:07:00 Test Item Value Reference Range Interpretation Comments Eosinophils # (test code 0.2 See_Comment [A utomated message] The = Eosinophils #) system [facility] h generated this result tra nsmitted reference range : <=0.5. The reference r patria was not used to int erpret this result as normal/abnormal . [facility] CenterNmtvvvsWFGSLGLBOC6949-29-12 07:07:00 Test Item Value Reference Range Interpretation Comments Basophils # (test code 0.1 See_Comment [Aut omated message] The = Basophils #) system which generated this result tra nsmitted reference range : <=0.2. The reference r patria was not used to int erpret this result as normal/abnormal . [facility] CenterYusnbwlNUAZMBULAL3319-02-22 07:07:00 Test Item Value Reference Range Interpretation Comments Macrocyte (test code = 1+ *ABN*(07/19/22 2:07 Macrocyte) AM) [facility] ResourcesCzqaaftADGZZJ4083-49-56 07:07:00 Test Item Value Reference Range Interpretation Comments Trig (test code = Trig) 65 [facility] ResourcesSrbomtdLZWTEV9610-41-09 07:07:00 Test Item Value Reference Range Interpretation Comments Chol (test code = Chol) 115 [facility] ResourcesEitfnhjGFQIAJ6142-33-31 07:07:00 Test Item Value Reference Range Interpretation Comments HDL (test code = HDL) 71 [facility] ResourcesPznkcfiRBICQF3080-78-90 07:07:00 Test Item Value Reference Range Interpretation Comments CHD Risk (test code = CHD Risk) 1.62 1 3.90-5.80 [facility] ResourcesMuiprdbWESMKF3589-74-62 07:07:00 Test Item Value Reference Range Interpretation Comments LDL (Calculated) (test code = LDL 31 (Calculated)) [facility]oaTZZCAK1123[facility] 07:07:00 Test Item Value Reference Range Interpretation Comments VLDL (test code = VLDL) 13 1 [facility] [id number] 07:07:00 Test Item Value Reference Range Interpretation Comments Hgb A1C (test code = Hgb A1C) 5.2 [facility] SGWFSFT4950-44-35 07:07:00 Test Item Value Reference Range Interpretation Comments HS Troponin I (test code = HS Troponin 8 I) [facility]About[facility] [id number] 07:07:00 Test Item Value Reference Range Interpretation Comments Total Protein (test code = Total 7.1 6.4-8.4 Protein) [facility] [id number] 07:07:00 Test Item Value Reference Range Interpretation Comments Albumin Lvl (test code = Albumin Lvl) 3.0 3.5-5.0 [facility] [id number] 07:07:00 Test Item Value Reference Range Interpretation Comments ALT (test code = ALT) 42 See_Comment [Auto mated message] The system which ge nerated this result transmit rosendo reference range : <=65. The reference range was not used to interpr et this result as josi l/abnormal. [facility] [employer] [id number] 07:07:00 Test Item Value Reference Range Interpretation Comments AST (test code = AST) 40 See_Comment [Auto mated message] The system which ge nerated this result transmit rosendo reference range : <=37. The reference range was not used to interpr et this result as josi l/abnormal. [place] 542562-09-08 07:07:00 Test Item Value Reference Range Interpretation Comments Alk Phos (test code = Alk Phos) 110 39-136 [place] 542562-09-08 07:07:00 Test Item Value Reference Range Interpretation Comments Bili Total (test code = Bili Total) 0.2 0.2-1.3 [place] 542562-09-08 07:07:00 Test Item Value Reference Range Interpretation Comments B/C Ratio (test code = B/C Ratio) 33 1 6-25 [place] 542562-09-08 07:07:00 Test Item Value Reference Range Interpretation Comments Globulin (test code = Globulin) 4.1 2.7-4.2 [place] 542562-09-08 07:07:00 Test Item Value Reference Range Interpretation Comments A/G Ratio (test code = A/G Ratio) 0.7 1 0.7-1.6 [place] 64257-09-08 07:07:00 Test Item Value Reference Range Interpretation Comments WBC (test code = WBC) 5.6 3.7-10.4 [place] 519362-09-08 07:07:00 Test Item Value Reference Range Interpretation Comments RBC (test code = RBC) 3.00 4.20-5.40 [place] 519362-09-08 07:07:00 Test Item Value Reference Range Interpretation Comments Hgb (test code = Hgb) 10.2 12.0-16.0 [place] 519362-09-08 07:07:00 Test Item Value Reference Range Interpretation Comments Hct (test code = Hct) 31.1 36.0-48.0 [place] [address]-09-08 07:07:00 Test Item Value Reference Range Interpretation Comments MCV (test code = MCV) 103.8 80.0-98.0 [place] [address]257-09-08 07:07:00 Test Item Value Reference Range Interpretation Comments MCH (test code = MCH) 34.1 pg 27.0-31.0 [place] [address]257-09-08 07:07:00 Test Item Value Reference Range Interpretation Comments MCHC (test code = MCHC) 32.8 32.0-36.0 [place] 519362-09-08 07:07:00 Test Item Value Reference Range Interpretation Comments RDW (test code = RDW) 16.0 11.5-14.5 [place] 519362-09-08 07:07:00 Test Item Value Reference Range Interpretation Comments Platelet (test code = Platelet) 258 133-450 [facility]IgduakdYPQCWGUKXU1317-41-58 07:07:00 Test Item Value Reference Range Interpretation Comments MPV (test code = MPV) 7.4 7.4-10.4 [place] 519362-09-08 07:07:00 Test Item Value Reference Range Interpretation Comments Segs (test code = Segs) 49.0 45.0-75.0 [place] 519362-09-08 07:07:00 Test Item Value Reference Range Interpretation Comments Lymphocytes (test code = Lymphocytes) 34.3 20.0-40.0 [place] 519362-09-08 07:07:00 Test Item Value Reference Range Interpretation Comments Monocytes (test code = Monocytes) 11.3 2.0-12.0 [place] 519362-09-08 07:07:00 Test Item Value Reference Range Interpretation Comments Eosinophils (test code = 4.0 See_Comment [A utomated message] The Eosinophils) system which ge nerated this result tra nsmitted reference range : <=4.0. The reference r patria was not used to int erpret this result as normal/abnormal . [facility] CenterJprrmnaDNVXRYDGWQ2756-82-89 07:07:00 Test Item Value Reference Range Interpretation Comments Basophils (test code = 1.4 See_Comment [Aut omated message] The Basophils) system which ge nerated this result tra nsmitted reference range : <=1.0. The reference r patria was not used to int erpret this result as normal/abnormal . [place] 519362-09-08 07:07:00 Test Item Value Reference Range Interpretation Comments Neutrophils # (test code = Neutrophils 2.7 1.5-8.1 #) [place] 519362-09-08 07:07:00 Test Item Value Reference Range Interpretation Comments Lymphocytes # (test code = Lymphocytes 1.9 1.0-5.5 #) [facility] CenterZambkkfWXMFUNTAVL7134-19-97 07:07:00 Test Item Value Reference Range Interpretation Comments Monocytes # (test code 0.6 See_Comment [Aut omated message] The = Monocytes #) system which generated this result tra nsmitted reference range : <=0.8. The reference r patria was not used to int erpret this result as normal/abnormal . [facility] CenterTngeqbaMMMBNRQOGL4181-34-91 07:07:00 Test Item Value Reference Range Interpretation Comments Eosinophils # (test code 0.2 See_Comment [A utomated message] The = Eosinophils #) system whic h generated this result tra nsmitted reference range : <=0.5. The reference r patria was not used to int erpret this result as normal/abnormal . [facility] CenterGwozuqaUVVDZJWIHR5191-85-39 07:07:00 Test Item Value Reference Range Interpretation Comments Basophils # (test code 0.1 See_Comment [Aut omated message] The = Basophils #) system which generated this result tra nsmitted reference range : <=0.2. The reference r patria was not used to int erpret this result as normal/abnormal . [facility] CenterUovhzuwQLSTNCZNAL7331-32-83 07:07:00 Test Item Value Reference Range Interpretation Comments Macrocyte (test code = 1+ *ABN*(07/19/22 2:07 Macrocyte) AM) [facility]TtapkyyDMOAPC8071-24-57 07:07:00 Test Item Value Reference Range Interpretation Comments Trig (test code = Trig) 65 [place] 519712-09-08 07:07:00 Test Item Value Reference Range Interpretation Comments Chol (test code = Chol) 115 [place] 519712-09-08 07:07:00 Test Item Value Reference Range Interpretation Comments HDL (test code = HDL) 71 [place] 519712-09-08 07:07:00 Test Item Value Reference Range Interpretation Comments CHD Risk (test code = CHD Risk) 1.62 1 3.90-5.80 [place] 519712-09-08 07:07:00 Test Item Value Reference Range Interpretation Comments LDL (Calculated) (test code = LDL 31 (Calculated)) [place] 519712-09-08 07:07:00 Test Item Value Reference Range Interpretation Comments VLDL (test code = VLDL) 13 1 [facility] [id number] 07:07:00 Test Item Value Reference Range Interpretation Comments Hgb A1C (test code = Hgb A1C) 5.2 [facility] ResourcesannCARDIAC [id number] 07:07:00 Test Item Value Reference Range Interpretation Comments HS Troponin I (test code = HS Troponin 8 I) [facility] [id number] 07:07:00 Test Item Value Reference Range Interpretation Comments Total Protein (test code = Total 7.1 6.4-8.4 Protein) [facility] [id number] 07:07:00 Test Item Value Reference Range Interpretation Comments Albumin Lvl (test code = Albumin Lvl) 3.0 3.5-5.0 [facility] [id number] 07:07:00 Test Item Value Reference Range Interpretation Comments ALT (test code = ALT) 42 See_Comment [Auto mated message] The system which ge nerated this result transmit rosendo reference range : <=65. The reference range was not used to interpr et this result as josi l/abnormal. [facility] [employer] [id number] 07:07:00 Test Item Value Reference Range Interpretation Comments AST (test code = AST) 40 See_Comment [Auto mated message] The system which ge nerated this result transmit rosendo reference range : <=37. The reference range was not used to interpr et this result as josi l/abnormal. [facility] [employer] [id number] 07:07:00 Test Item Value Reference Range Interpretation Comments Alk Phos (test code = Alk Phos) 110 39-136 [facility] [employer] [id number] 07:07:00 Test Item Value Reference Range Interpretation Comments Bili Total (test code = Bili Total) 0.2 0.2-1.3 [facility] [employer] [id number] 07:07:00 Test Item Value Reference Range Interpretation Comments B/C Ratio (test code = B/C Ratio) 33 1 6-25 [facility] [id number] 07:07:00 Test Item Value Reference Range Interpretation Comments Globulin (test code = Globulin) 4.1 2.7-4.2 [facility] [id number] 07:07:00 Test Item Value Reference Range Interpretation Comments A/G Ratio (test code = A/G Ratio) 0.7 1 0.7-1.6 [facility] CenterUvwkfdwLKOEQLLUDK0452-66-02 07:07:00 Test Item Value Reference Range Interpretation Comments WBC (test code = WBC) 5.6 3.7-10.4 [place] 519362-09-08 07:07:00 Test Item Value Reference Range Interpretation Comments RBC (test code = RBC) 3.00 4.20-5.40 [facility] CenterRhxqkpqGGLKWWJYUJ9408-19-56 07:07:00 Test Item Value Reference Range Interpretation Comments Hgb (test code = Hgb) 10.2 12.0-16.0 [place] 519362-09-08 07:07:00 Test Item Value Reference Range Interpretation Comments Hct (test code = Hct) 31.1 36.0-48.0 [place] 519362-09-08 07:07:00 Test Item Value Reference Range Interpretation Comments MCV (test code = MCV) 103.8 80.0-98.0 [place] 519362-09-08 07:07:00 Test Item Value Reference Range Interpretation Comments MCH (test code = MCH) 34.1 pg 27.0-31.0 [facility] CenterSdfjjdzVGKGXYSGVH4257-87-20 07:07:00 Test Item Value Reference Range Interpretation Comments MCHC (test code = MCHC) 32.8 32.0-36.0 [facility] CenterLxefezhWFXGAKWIFP6124-26-39 07:07:00 Test Item Value Reference Range Interpretation Comments RDW (test code = RDW) 16.0 11.5-14.5 [place] 519362-09-08 07:07:00 Test Item Value Reference Range Interpretation Comments Platelet (test code = Platelet) 258 133-450 [facility] CenterPemnsltPTZSNCEENE2246-09-07 07:07:00 Test Item Value Reference Range Interpretation Comments MPV (test code = MPV) 7.4 7.4-10.4 [facility] CenterIgorehcTLRHNVODIL6274-41-38 07:07:00 Test Item Value Reference Range Interpretation Comments Segs (test code = Segs) 49.0 45.0-75.0 [place] 519362-09-08 07:07:00 Test Item Value Reference Range Interpretation Comments Lymphocytes (test code = Lymphocytes) 34.3 20.0-40.0 [facility] CenterDurepjoHHIANOPCJX5351-24-33 07:07:00 Test Item Value Reference Range Interpretation Comments Monocytes (test code = Monocytes) 11.3 2.0-12.0 [facility] CenterKktxnwxNGLMNNGPFA0727-32-33 07:07:00 Test Item Value Reference Range Interpretation Comments Eosinophils (test code = 4.0 See_Comment [A utomated message] The Eosinophils) system which ge nerated this result tra nsmitted reference range : <=4.0. The reference r patria was not used to int erpret this result as normal/abnormal . [facility] CenterFyzlptiZLPVDBAVDJ7340-56-62 07:07:00 Test Item Value Reference Range Interpretation Comments Basophils (test code = 1.4 See_Comment [Aut omated message] The Basophils) system which ge nerated this result tra nsmitted reference range : <=1.0. The reference r patria was not used to int erpret this result as normal/abnormal . [facility] CenterWkexpzwXPYVDTVLBJ6529-99-56 07:07:00 Test Item Value Reference Range Interpretation Comments Neutrophils # (test code = Neutrophils 2.7 1.5-8.1 #) [facility] CenterPwaiupbNSYRZPUSAG8553-14-32 07:07:00 Test Item Value Reference Range Interpretation Comments Lymphocytes # (test code = Lymphocytes 1.9 1.0-5.5 #) [facility] CenterVncqdvgCJOPYNINET1031-65-05 07:07:00 Test Item Value Reference Range Interpretation Comments Monocytes # (test code 0.6 See_Comment [Aut omated message] The = Monocytes #) system which generated this result tra nsmitted reference range : <=0.8. The reference r patria was not used to int erpret this result as normal/abnormal . [place] 519362-09-08 07:07:00 Test Item Value Reference Range Interpretation Comments Eosinophils # (test code 0.2 See_Comment [A utomated message] The = Eosinophils #) system whic h generated this result tra nsmitted reference range : <=0.5. The reference r patria was not used to int erpret this result as normal/abnormal . [place] 519362-09-08 07:07:00 Test Item Value Reference Range Interpretation Comments Basophils # (test code 0.1 See_Comment [Aut omated message] The = Basophils #) system which generated this result tra nsmitted reference range : <=0.2. The reference r patria was not used to int erpret this result as normal/abnormal . [facility] HospitalHogdpnoBDPGCVWSPD4239-55-30 07:07:00 Test Item Value Reference Range Interpretation Comments Macrocyte (test code = 1+ *ABN*(07/19/22 2:07 Macrocyte) AM) [facility] ResourcesBdwlcxyOTFCPH7362-97-98 07:07:00 Test Item Value Reference Range Interpretation Comments Trig (test code = Trig) 65 [facility] ResourcesImtfioiHRHZNC8040-24-64 07:07:00 Test Item Value Reference Range Interpretation Comments Chol (test code = Chol) 115 [facility] ResourcesVsmixklJQTBRP0719-12-55 07:07:00 Test Item Value Reference Range Interpretation Comments HDL (test code = HDL) 71 [facility] HospitalQzevhxeBAXBBO7354-31-00 07:07:00 Test Item Value Reference Range Interpretation Comments CHD Risk (test code = CHD Risk) 1.62 1 3.90-5.80 [facility] ResourcesWfxgwbxOCOSDR6532-80-64 07:07:00 Test Item Value Reference Range Interpretation Comments LDL (Calculated) (test code = LDL 31 (Calculated)) [facility] HospitalNymockqNYFUTJ0200-87-12 07:07:00 Test Item Value Reference Range Interpretation Comments VLDL (test code = VLDL) 13 [facility] [id number] 07:07:00 Test Item Value Reference Range Interpretation Comments Hgb A1C (test code = Hgb A1C) 5.2 [facility]CARD[facility]AC [id number] 07:07:00 Test Item Value Reference Range Interpretation Comments HS Troponin I (test code = HS Troponin 8 I) [facility] ResourcesSaperionCHEM [id number] 07:07:00 Test Item Value Reference Range Interpretation Comments Total Protein (test code = Total 7.1 6.4-8.4 Protein) [facility] [id number] 07:07:00 Test Item Value Reference Range Interpretation Comments Albumin Lvl (test code = Albumin Lvl) 3.0 3.5-5.0 [facility] [id number] 07:07:00 Test Item Value Reference Range Interpretation Comments ALT (test code = ALT) 42 See_Comment [Auto mated message] The system which ge nerated this result transmit rosendo reference range : <=65. The reference range was not used to interpr et this result as josi l/abnormal. [facility] [id number] 07:07:00 Test Item Value Reference Range Interpretation Comments AST (test code = AST) 40 See_Comment [Auto mated message] The system which ge nerated this result transmit rosendo reference range : <=37. The reference range was not used to interpr et this result as josi l/abnormal. [facility] [id number] 07:07:00 Test Item Value Reference Range Interpretation Comments Alk Phos (test code = Alk Phos) 110 39-136 [facility] [id number] 07:07:00 Test Item Value Reference Range Interpretation Comments Bili Total (test code = Bili Total) 0.2 0.2-1.3 [facility] [id number] 07:07:00 Test Item Value Reference Range Interpretation Comments B/C Ratio (test code = B/C Ratio) 33 1 6-25 [facility] [id number] 07:07:00 Test Item Value Reference Range Interpretation Comments Globulin (test code = Globulin) 4.1 2.7-4.2 [facility] [id number] 07:07:00 Test Item Value Reference Range Interpretation Comments A/G Ratio (test code = A/G Ratio) 0.7 1 0.7-1.6 [facility] HospitalNhutvyeCSFHUQJABT3233-20-97 07:07:00 Test Item Value Reference Range Interpretation Comments WBC (test code = WBC) 5.6 3.7-10.4 [place] 519362-09-08 07:07:00 Test Item Value Reference Range Interpretation Comments RBC (test code = RBC) 3.00 4.20-5.40 [place] [address]-09-08 07:07:00 Test Item Value Reference Range Interpretation Comments Hgb (test code = Hgb) 10.2 12.0-16.0 [place] [address]257-09-08 07:07:00 Test Item Value Reference Range Interpretation Comments Hct (test code = Hct) 31.1 36.0-48.0 [place] [address]257-09-08 07:07:00 Test Item Value Reference Range Interpretation Comments MCV (test code = MCV) 103.8 80.0-98.0 [place] 519362-09-08 07:07:00 Test Item Value Reference Range Interpretation Comments MCH (test code = MCH) 34.1 pg 27.0-31.0 [place] 519362-09-08 07:07:00 Test Item Value Reference Range Interpretation Comments MCHC (test code = MCHC) 32.8 32.0-36.0 [place] 519362-09-08 07:07:00 Test Item Value Reference Range Interpretation Comments RDW (test code = RDW) 16.0 11.5-14.5 [place] 519362-09-08 07:07:00 Test Item Value Reference Range Interpretation Comments Platelet (test code = Platelet) 258 133-450 [facility] CenterHhwrozuRZVAHCTQOO2307-30-50 07:07:00 Test Item Value Reference Range Interpretation Comments MPV (test code = MPV) 7.4 7.4-10.4 [place] 519362-09-08 07:07:00 Test Item Value Reference Range Interpretation Comments Segs (test code = Segs) 49.0 45.0-75.0 [place] 519362-09-08 07:07:00 Test Item Value Reference Range Interpretation Comments Lymphocytes (test code = Lymphocytes) 34.3 20.0-40.0 [place] 519362-09-08 07:07:00 Test Item Value Reference Range Interpretation Comments Monocytes (test code = Monocytes) 11.3 2.0-12.0 [place] 519362-09-08 07:07:00 Test Item Value Reference Range Interpretation Comments Eosinophils (test code = 4.0 See_Comment [A utomated message] The Eosinophils) system which ge nerated this result tra nsmitted reference range : <=4.0. The reference r patria was not used to int erpret this result as normal/abnormal . [place] 519362-09-08 07:07:00 Test Item Value Reference Range Interpretation Comments Basophils (test code = 1.4 See_Comment [Aut omated message] The Basophils) system which ge nerated this result tra nsmitted reference range : <=1.0. The reference r patria was not used to int erpret this result as normal/abnormal . [facility] CenterNjcnrkcSGKOIJGBXC9850-06-77 07:07:00 Test Item Value Reference Range Interpretation Comments Neutrophils # (test code = Neutrophils 2.7 1.5-8.1 #) [facility] CenterWlzuougZXCZDBKYCN0072-60-00 07:07:00 Test Item Value Reference Range Interpretation Comments Lymphocytes # (test code = Lymphocytes 1.9 1.0-5.5 #) [facility]QsmwtwiJODOLCISXU3381-51-01 [facility]:07:00 Test Item Value Reference Range Interpretation Comments Monocytes # (test code 0.6 See_Comment [Aut omated message] The = Monocytes #) system which generated this result tra nsmitted reference range : <=0.8. The reference r patria was not used to int erpret this result as normal/abnormal . [facility] CenterKodkaelZLKICVNGMY2532-45-45 07:07:00 Test Item Value Reference Range Interpretation Comments Eosinophils # (test code 0.2 See_Comment [A utomated message] The = Eosinophils #) system whic h generated this result tra nsmitted reference range : <=0.5. The reference r patria was not used to int erpret this result as normal/abnormal . [facility] CenterSlpwswdOSTVOXQDTB4220-69-43 07:07:00 Test Item Value Reference Range Interpretation Comments Basophils # (test code 0.1 See_Comment [Aut omated message] The = Basophils #) system which generated this result tra nsmitted reference range : <=0.2. The reference r patria was not used to int erpret this result as normal/abnormal . [facility] CenterTxslwquWNLGQVROBA8879-33-97 07:07:00 Test Item Value Reference Range Interpretation Comments Macrocyte (test code = 1+ *ABN*(07/19/22 2:07 Macrocyte) AM) [facility]KqvtoseZCFZSG5494-08-63 07:07:00 Test Item Value Reference Range Interpretation Comments Trig (test code = Trig) 65 [place] 519712-09-08 07:07:00 Test Item Value Reference Range Interpretation Comments Chol (test code = Chol) 115 [place] 519712-09-08 07:07:00 Test Item Value Reference Range Interpretation Comments HDL (test code = HDL) 71 [place] 519712-09-08 07:07:00 Test Item Value Reference Range Interpretation Comments CHD Risk (test code = CHD Risk) 1.62 1 3.90-5.80 [facility] ResourcesQreyolsXHWFZD9865-03-96 07:07:00 Test Item Value Reference Range Interpretation Comments LDL (Calculated) (test code = LDL 31 (Calculated)) [facility] ResourcesTdfumryHVUXMX4320-15-32 07:07:00 Test Item Value Reference Range Interpretation Comments VLDL (test code = VLDL) 13 1 [facility] [id number] 07:07:00 Test Item Value Reference Range Interpretation Comments Hgb A1C (test code = Hgb A1C) 5.2 [facility] RHSQKEJ2301-35-64 07:07:00 Test Item Value Reference Range Interpretation Comments HS Troponin I (test code = HS Troponin 8 I) [facility] ResourcesAboutUs.org [id number] 07:07:00 Test Item Value Reference Range Interpretation Comments Total Protein (test code = Total 7.1 6.4-8.4 Protein) [facility] ResourcesAbout[facility] [id number] 07:07:00 Test Item Value Reference Range Interpretation Comments Albumin Lvl (test code = Albumin Lvl) 3.0 3.5-5.0 [facility] [employer] [id number] 07:07:00 Test Item Value Reference Range Interpretation Comments ALT (test code = ALT) 42 See_Comment [Auto mated message] The system which ge nerated this result transmit rosendo reference range : <=65. The reference range was not used to interpr et this result as josi l/abnormal. [facility] [employer] [id number] 07:07:00 Test Item Value Reference Range Interpretation Comments AST (test code = AST) 40 See_Comment [Auto mated message] The system which ge nerated this result transmit rosendo reference range : <=37. The reference range was not used to interpr et this result as josi l/abnormal. [facility] [employer] [id number] 07:07:00 Test Item Value Reference Range Interpretation Comments Alk Phos (test code = Alk Phos) 110 39-136 [facility] ResourcesAboutUs.[facility] [id number] 07:07:00 Test Item Value Reference Range Interpretation Comments Bili Total (test code = Bili Total) 0.2 0.2-1.3 [facility] [employer] [id number] 07:07:00 Test Item Value Reference Range Interpretation Comments B/C Ratio (test code = B/C Ratio) 33 1 6-25 [facility]2022-09-08 07:07:00 Test Item Value Reference Range Interpretation Comments Globulin (test code = Globulin) 4.1 2.7-4.2 [place] 542562-09-08 07:07:00 Test Item Value Reference Range Interpretation Comments A/G Ratio (test code = A/G Ratio) 0.7 1 0.7-1.6 [place] 519362-09-08 07:07:00 Test Item Value Reference Range Interpretation Comments WBC (test code = WBC) 5.6 3.7-10.4 [place] 519362-09-08 07:07:00 Test Item Value Reference Range Interpretation Comments RBC (test code = RBC) 3.00 4.20-5.40 [place] 519362-09-08 07:07:00 Test Item Value Reference Range Interpretation Comments Hgb (test code = Hgb) 10.2 12.0-16.0 [place] 519362-09-08 07:07:00 Test Item Value Reference Range Interpretation Comments Hct (test code = Hct) 31.1 36.0-48.0 [place] 519362-09-08 07:07:00 Test Item Value Reference Range Interpretation Comments MCV (test code = MCV) 103.8 80.0-98.0 [place] 519362-09-08 07:07:00 Test Item Value Reference Range Interpretation Comments MCH (test code = MCH) 34.1 pg 27.0-31.0 [place] 519362-09-08 07:07:00 Test Item Value Reference Range Interpretation Comments MCHC (test code = MCHC) 32.8 32.0-36.0 [place] 519362-09-08 07:07:00 Test Item Value Reference Range Interpretation Comments RDW (test code = RDW) 16.0 11.5-14.5 [place] 519362-09-08 07:07:00 Test Item Value Reference Range Interpretation Comments Platelet (test code = Platelet) 258 133-450 [place] 519362-09-08 07:07:00 Test Item Value Reference Range Interpretation Comments MPV (test code = MPV) 7.4 7.4-10.4 [facility]TqvtgfvIBEEJMWAQK2000-73-39 07:07:00 Test Item Value Reference Range Interpretation Comments Segs (test code = Segs) 49.0 45.0-75.0 [facility] CenterYlpgxlsFXWXDFEXMB6501-90-18 07:07:00 Test Item Value Reference Range Interpretation Comments Lymphocytes (test code = Lymphocytes) 34.3 20.0-40.0 [place] 519362-09-08 07:07:00 Test Item Value Reference Range Interpretation Comments Monocytes (test code = Monocytes) 11.3 2.0-12.0 [facility] CenterMvoppzgKGJERCLGQC6784-09-55 07:07:00 Test Item Value Reference Range Interpretation Comments Eosinophils (test code = 4.0 See_Comment [A utomated message] The Eosinophils) system which ge nerated this result tra nsmitted reference range : <=4.0. The reference r patria was not used to int erpret this result as normal/abnormal . [facility] CenterNfrbphbBRYDXXXMQG1048-01-06 07:07:00 Test Item Value Reference Range Interpretation Comments Basophils (test code = 1.4 See_Comment [Aut omated message] The Basophils) system which ge nerated this result tra nsmitted reference range : <=1.0. The reference r patria was not used to int erpret this result as normal/abnormal . [facility] CenterEzauezzBLLZXITHPE2951-03-57 07:07:00 Test Item Value Reference Range Interpretation Comments Neutrophils # (test code = Neutrophils 2.7 1.5-8.1 #) [place] 519362-09-08 07:07:00 Test Item Value Reference Range Interpretation Comments Lymphocytes # (test code = Lymphocytes 1.9 1.0-5.5 #) [place] 519362-09-08 07:07:00 Test Item Value Reference Range Interpretation Comments Monocytes # (test code 0.6 See_Comment [Aut omated message] The = Monocytes #) system which generated this result tra nsmitted reference range : <=0.8. The reference r patria was not used to int erpret this result as normal/abnormal . [place] [address]-09-08 07:07:00 Test Item Value Reference Range Interpretation Comments Eosinophils # (test code 0.2 See_Comment [A utomated message] The = Eosinophils #) system whic h generated this result tra nsmitted reference range : <=0.5. The reference r patria was not used to int erpret this result as normal/abnormal . [facility] HospitalQeqdljkWORVZKPMPW4429-23-53 07:07:00 Test Item Value Reference Range Interpretation Comments Basophils # (test code 0.1 See_Comment [Aut omated message] The = Basophils #) system which generated this result tra nsmitted reference range : <=0.2. The reference r patria was not used to int erpret this result as normal/abnormal . [facility] ServicesThgqwobLEABAOMKMT1690-17-27 07:07:00 Test Item Value Reference Range Interpretation Comments Macrocyte (test code = 1+ *ABN*(07/19/22 2:07 Macrocyte) AM) [facility] HospitalWqujyioCXSNDS8008-79-89 07:07:00 Test Item Value Reference Range Interpretation Comments Trig (test code = Trig) 65 [facility] HospitalAukdzyzFDEUCK2735-03-31 07:07:00 Test Item Value Reference Range Interpretation Comments Chol (test code = Chol) 115 [facility] HospitalIptkayqMNYEIJ7355-85-51 07:07:00 Test Item Value Reference Range Interpretation Comments HDL (test code = HDL) 71 [facility] HospitalWbcvrorPFSPTA5444-69-52 07:07:00 Test Item Value Reference Range Interpretation Comments CHD Risk (test code = CHD Risk) 1.62 1 3.90-5.80 [facility] ResourcesEpaafrxNGZDYU8563-79-47 07:07:00 Test Item Value Reference Range Interpretation Comments LDL (Calculated) (test code = LDL 31 (Calculated)) [facility] HospitalGrhuebwTVIOCP5762-92-20 07:07:00 Test Item Value Reference Range Interpretation Comments VLDL (test code = VLDL) 13 1 [facility]SPE[facility] VYXNICRSK1770-74-72 07:07:00 Test Item Value Reference Range Interpretation Comments Hgb A1C (test code = Hgb A1C) 5.2 [facility] [id number] 07:07:00 Test Item Value Reference Range Interpretation Comments HS Troponin I (test code = HS Troponin 8 I) [facility] HospitalIndependent Space [id number] 07:07:00 Test Item Value Reference Range Interpretation Comments Total Protein (test code = Total 7.1 6.4-8.4 Protein) [place] 542562-09-08 07:07:00 Test Item Value Reference Range Interpretation Comments Albumin Lvl (test code = Albumin Lvl) 3.0 3.5-5.0 [place] 542562-09-08 07:07:00 Test Item Value Reference Range Interpretation Comments ALT (test code = ALT) 42 See_Comment [Auto mated message] The system which ge nerated this result transmit rosendo reference range : <=65. The reference range was not used to interpr et this result as josi l/abnormal. [place] [address]-09-08 07:07:00 Test Item Value Reference Range Interpretation Comments AST (test code = AST) 40 See_Comment [Auto mated message] The system which ge nerated this result transmit rosendo reference range : <=37. The reference range was not used to interpr et this result as josi l/abnormal. [place] [address]-09-08 07:07:00 Test Item Value Reference Range Interpretation Comments Alk Phos (test code = Alk Phos) 110 39-136 [place] 542562-09-08 07:07:00 Test Item Value Reference Range Interpretation Comments Bili Total (test code = Bili Total) 0.2 0.2-1.3 [place] [address]-09-08 07:07:00 Test Item Value Reference Range Interpretation Comments B/C Ratio (test code = B/C Ratio) 33 1 6-25 [place] [address]-09-08 07:07:00 Test Item Value Reference Range Interpretation Comments Globulin (test code = Globulin) 4.1 2.7-4.2 [place] 542562-09-08 07:07:00 Test Item Value Reference Range Interpretation Comments A/G Ratio (test code = A/G Ratio) 0.7 1 0.7-1.6 [place] [address]-09-08 07:07:00 Test Item Value Reference Range Interpretation Comments WBC (test code = WBC) 5.6 3.7-10.4 [place] [address]-09-08 07:07:00 Test Item Value Reference Range Interpretation Comments RBC (test code = RBC) 3.00 4.20-5.40 [place] [address]-09-08 07:07:00 Test Item Value Reference Range Interpretation Comments Hgb (test code = Hgb) 10.2 12.0-16.0 [place] 519362-09-08 07:07:00 Test Item Value Reference Range Interpretation Comments Hct (test code = Hct) 31.1 36.0-48.0 [place] 519362-09-08 07:07:00 Test Item Value Reference Range Interpretation Comments MCV (test code = MCV) 103.8 80.0-98.0 [place] 519362-09-08 07:07:00 Test Item Value Reference Range Interpretation Comments MCH (test code = MCH) 34.1 pg 27.0-31.0 [facility] CenterZjzuovoWMNQYXWPNN9300-50-44 07:07:00 Test Item Value Reference Range Interpretation Comments MCHC (test code = MCHC) 32.8 32.0-36.0 [place] 519362-09-08 07:07:00 Test Item Value Reference Range Interpretation Comments RDW (test code = RDW) 16.0 11.5-14.5 [place] 519362-09-08 07:07:00 Test Item Value Reference Range Interpretation Comments Platelet (test code = Platelet) 258 133-450 [facility] CenterHtigdqsTRQEMCNSQC7915-97-86 07:07:00 Test Item Value Reference Range Interpretation Comments MPV (test code = MPV) 7.4 7.4-10.4 [place] 519362-09-08 07:07:00 Test Item Value Reference Range Interpretation Comments Segs (test code = Segs) 49.0 45.0-75.0 [place] 519362-09-08 07:07:00 Test Item Value Reference Range Interpretation Comments Lymphocytes (test code = Lymphocytes) 34.3 20.0-40.0 [place] 519362-09-08 07:07:00 Test Item Value Reference Range Interpretation Comments Monocytes (test code = Monocytes) 11.3 2.0-12.0 [facility] CenterYyrrqdmLTDLMAFZID7470-28-57 07:07:00 Test Item Value Reference Range Interpretation Comments Eosinophils (test code = 4.0 See_Comment [A utomated message] The Eosinophils) system which ge nerated this result tra nsmitted reference range : <=4.0. The reference r patria was not used to int erpret this result as normal/abnormal . [facility] CenterMgwqfyjMGKLJFAWGL8252-23-80 07:07:00 Test Item Value Reference Range Interpretation Comments Basophils (test code = 1.4 See_Comment [Aut omated message] The Basophils) system which ge nerated this result tra nsmitted reference range : <=1.0. The reference r patria was not used to int erpret this result as normal/abnormal . [facility] CenterBaxtquwFNCGCZLMDT2491-00-36 07:07:00 Test Item Value Reference Range Interpretation Comments Neutrophils # (test code = Neutrophils 2.7 1.5-8.1 #) [facility] CenterNdowhdvCLFOAFDSQG0631-29-51 07:07:00 Test Item Value Reference Range Interpretation Comments Lymphocytes # (test code = Lymphocytes 1.9 1.0-5.5 #) [facility] CenterXzravcsXVWAQQWNEF8128-51-67 07:07:00 Test Item Value Reference Range Interpretation Comments Monocytes # (test code 0.6 See_Comment [Aut omated message] The = Monocytes #) system which generated this result tra nsmitted reference range : <=0.8. The reference r patria was not used to int erpret this result as normal/abnormal . [facility] CenterHriskrcCSQLRZJWEE1822-63-27 07:07:00 Test Item Value Reference Range Interpretation Comments Eosinophils # (test code 0.2 See_Comment [A utomated message] The = Eosinophils #) system whic h generated this result tra nsmitted reference range : <=0.5. The reference r patria was not used to int erpret this result as normal/abnormal . [facility] CenterYwfbxzeZSMLLJSDAG5835-38-18 07:07:00 Test Item Value Reference Range Interpretation Comments Basophils # (test code 0.1 See_Comment [Aut omated message] The = Basophils #) system which generated this result tra nsmitted reference range : <=0.2. The reference r patria was not used to int erpret this result as normal/abnormal . [facility] CenterZymmkesFTJKCFJWNJ0401-77-80 07:07:00 Test Item Value Reference Range Interpretation Comments Macrocyte (test code = 1+ *ABN*(07/19/22 2:07 Macrocyte) AM) [facility] CenterOfxaunhJZUCYR7366-94-99 07:07:00 Test Item Value Reference Range Interpretation Comments Trig (test code = Trig) 65 [facility] HospitalEjnizbqBGJQIH8164-86-88 07:07:00 Test Item Value Reference Range Interpretation Comments Chol (test code = Chol) 115 [facility] ResourcesXccixceGSOHXV0223-26-98 07:07:00 Test Item Value Reference Range Interpretation Comments HDL (test code = HDL) 71 [facility] HospitalKvxnuhvNTYHUN2452-12-42 07:07:00 Test Item Value Reference Range Interpretation Comments CHD Risk (test code = CHD Risk) 1.62 1 3.90-5.80 [facility] ResourcesIoujlcjFGRHPT1807-51-28 07:07:00 Test Item Value Reference Range Interpretation Comments LDL (Calculated) (test code = LDL 31 (Calculated)) [facility] ResourcesUveccztWDGNXW2668-23-80 07:07:00 Test Item Value Reference Range Interpretation Comments VLDL (test code = VLDL) 13 [facility] YCTZRRWMX7379-19-50 07:07:00 Test Item Value Reference Range Interpretation Comments Hgb A1C (test code = Hgb A1C) 5.2 [facility] QDVDXQM3301-70-05 07:07:00 Test Item Value Reference Range Interpretation Comments HS Troponin I (test code = HS Troponin 8 I) [facility] ResourcesSaperionCHEM [id number] 07:07:00 Test Item Value Reference Range Interpretation Comments Total Protein (test code = Total 7.1 6.4-8.4 Protein) [facility] ResourcesAboutUs.org [id number] 07:07:00 Test Item Value Reference Range Interpretation Comments Albumin Lvl (test code = Albumin Lvl) 3.0 3.5-5.0 [facility] [id number] 07:07:00 Test Item Value Reference Range Interpretation Comments ALT (test code = ALT) 42 See_Comment [Auto mated message] The system which ge nerated this result transmit rosendo reference range : <=65. The reference range was not used to interpr et this result as josi l/abnormal. [facility] [employer] [id number] 07:07:00 Test Item Value Reference Range Interpretation Comments AST (test code = AST) 40 See_Comment [Auto mated message] The system which ge nerated this result transmit rosendo reference range : <=37. The reference range was not used to interpr et this result as josi l/abnormal. [facility] [employer] [id number] 07:07:00 Test Item Value Reference Range Interpretation Comments Alk Phos (test code = Alk Phos) 110 39-136 [facility]2022-09-08 07:07:00 Test Item Value Reference Range Interpretation Comments Bili Total (test code = Bili Total) 0.2 0.2-1.3 [place] 542562-09-08 07:07:00 Test Item Value Reference Range Interpretation Comments B/C Ratio (test code = B/C Ratio) 33 1 6-25 [place] 542562-09-08 07:07:00 Test Item Value Reference Range Interpretation Comments Globulin (test code = Globulin) 4.1 2.7-4.2 [place] 542562-09-08 07:07:00 Test Item Value Reference Range Interpretation Comments A/G Ratio (test code = A/G Ratio) 0.7 1 0.7-1.6 [place] [address]-09-08 07:07:00 Test Item Value Reference Range Interpretation Comments WBC (test code = WBC) 5.6 3.7-10.4 [place] 519362-09-08 07:07:00 Test Item Value Reference Range Interpretation Comments RBC (test code = RBC) 3.00 4.20-5.40 [place] 519362-09-08 07:07:00 Test Item Value Reference Range Interpretation Comments Hgb (test code = Hgb) 10.2 12.0-16.0 [place] 519362-09-08 07:07:00 Test Item Value Reference Range Interpretation Comments Hct (test code = Hct) 31.1 36.0-48.0 [place] 519362-09-08 07:07:00 Test Item Value Reference Range Interpretation Comments MCV (test code = MCV) 103.8 80.0-98.0 [place] 519362-09-08 07:07:00 Test Item Value Reference Range Interpretation Comments MCH (test code = MCH) 34.1 pg 27.0-31.0 [place] [address]-09-08 07:07:00 Test Item Value Reference Range Interpretation Comments MCHC (test code = MCHC) 32.8 32.0-36.0 [place] [address]-09-08 07:07:00 Test Item Value Reference Range Interpretation Comments RDW (test code = RDW) 16.0 11.5-14.5 [place] 519362-09-08 07:07:00 Test Item Value Reference Range Interpretation Comments Platelet (test code = Platelet) 258 133-450 [place] 519362-09-08 07:07:00 Test Item Value Reference Range Interpretation Comments MPV (test code = MPV) 7.4 7.4-10.4 [place] 519362-09-08 07:07:00 Test Item Value Reference Range Interpretation Comments Segs (test code = Segs) 49.0 45.0-75.0 [place] 519362-09-08 07:07:00 Test Item Value Reference Range Interpretation Comments Lymphocytes (test code = Lymphocytes) 34.3 20.0-40.0 [place] 519362-09-08 07:07:00 Test Item Value Reference Range Interpretation Comments Monocytes (test code = Monocytes) 11.3 2.0-12.0 [place] 519362-09-08 07:07:00 Test Item Value Reference Range Interpretation Comments Eosinophils (test code = 4.0 See_Comment [A utomated message] The Eosinophils) system which ge nerated this result tra nsmitted reference range : <=4.0. The reference r patria was not used to int erpret this result as normal/abnormal . [place] 519362-09-08 07:07:00 Test Item Value Reference Range Interpretation Comments Basophils (test code = 1.4 See_Comment [Aut omated message] The Basophils) system which ge nerated this result tra nsmitted reference range : <=1.0. The reference r patria was not used to int erpret this result as normal/abnormal . [facility] CenterXaovmoyWMNTNDYFKD4550-85-60 07:07:00 Test Item Value Reference Range Interpretation Comments Neutrophils # (test code = Neutrophils 2.7 1.5-8.1 #) [place] 519362-09-08 07:07:00 Test Item Value Reference Range Interpretation Comments Lymphocytes # (test code = Lymphocytes 1.9 1.0-5.5 #) [place] 519362-09-08 07:07:00 Test Item Value Reference Range Interpretation Comments Monocytes # (test code 0.6 See_Comment [Aut omated message] The = Monocytes #) system which generated this result tra nsmitted reference range : <=0.8. The reference r patria was not used to int erpret this result as normal/abnormal . [facility] CenterTgmgwpzRMNPOCGBKB5035-53-86 07:07:00 Test Item Value Reference Range Interpretation Comments Eosinophils # (test code 0.2 See_Comment [A utomated message] The = Eosinophils #) system whic h generated this result tra nsmitted reference range : <=0.5. The reference r patria was not used to int erpret this result as normal/abnormal . [facility] CenterEphwiltXQEDFPIAAK3603-85-36 07:07:00 Test Item Value Reference Range Interpretation Comments Basophils # (test code 0.1 See_Comment [Aut omated message] The = Basophils #) system which generated this result tra nsmitted reference range : <=0.2. The reference r patria was not used to int erpret this result as normal/abnormal . [facility] CenterAhkkyhfRAITSTMJXK5145-96-90 07:07:00 Test Item Value Reference Range Interpretation Comments Macrocyte (test code = 1+ *ABN*(07/19/22 2:07 Macrocyte) AM) [facility] CenterJdjnerhFQQUUR5460-70-97 07:07:00 Test Item Value Reference Range Interpretation Comments Trig (test code = Trig) 65 [facility] HospitalSkwtrieSIPFBD2053-28-58 07:07:00 Test Item Value Reference Range Interpretation Comments Chol (test code = Chol) 115 [facility] CenterTsmtqyyWROQTV2659-51-97 07:07:00 Test Item Value Reference Range Interpretation Comments HDL (test code = HDL) 71 [facility] HospitalXwuvxyyEJTLWU6210-36-47 07:07:00 Test Item Value Reference Range Interpretation Comments CHD Risk (test code = CHD Risk) 1.62 1 3.90-5.80 [facility] HospitalSmvoftjHFKEAH8591-79-95 07:07:00 Test Item Value Reference Range Interpretation Comments LDL (Calculated) (test code = LDL 31 (Calculated)) [facility] HospitalCoizlhzKJVQSY5041-24-74 07:07:00 Test Item Value Reference Range Interpretation Comments VLDL (test code = VLDL) 13 1 [facility] EUOMINKFI5183-98-82 07:07:00 Test Item Value Reference Range Interpretation Comments Hgb A1C (test code = Hgb A1C) 5.2 [facility] CenterLvltyzrAVTZGLCYSV5780-34-45 15:15:00 Test Item Value Reference Range Interpretation Comments WBC (test code = WBC) 6.4 3.7-10.4 [facility] CenterIjjybbtRMKQIIEITA2486-53-86 15:15:00 Test Item Value Reference Range Interpretation Comments RBC (test code = RBC) 2.65 4.20-5.40 [facility] CenterPlvezlwLURNXEASUG9194-75-94 15:15:00 Test Item Value Reference Range Interpretation Comments Hgb (test code = Hgb) 8.7 12.0-16.0 [facility] CenterWbadlyoGXDTEHBWEO1517-39-18 15:15:00 Test Item Value Reference Range Interpretation Comments Hct (test code = Hct) 25.0 36.0-48.0 [facility] CenterWwalqoqZBKKINZFKZ6698-57-85 15:15:00 Test Item Value Reference Range Interpretation Comments MCV (test code = MCV) 94.4 80.0-98.0 [place] [address]362-03-02 15:15:00 Test Item Value Reference Range Interpretation Comments MCH (test code = MCH) 32.7 pg 27.0-31.0 [id number] 15:15:00 Test Item Value Reference Range Interpretation Comments MCHC (test code = MCHC) 34.6 32.0-36.0 [facility]wuABCGOVHVVV4768-74-47 15:15:00 Test Item Value Reference Range Interpretation Comments RDW (test code = RDW) 15.9 11.5-14.5 [facility]JgqzyauIXNHQRMKVH8613-34-41 15:15:00 Test Item Value Reference Range Interpretation Comments Platelet (test code = Platelet) 468 133-450 [facility]DvughtwYDJBQRGEOE6198-03-65 15:15:00 Test Item Value Reference Range Interpretation Comments MPV (test code = MPV) 7.1 7.4-10.4 [place] [address]-03-02 15:15:00 Test Item Value Reference Range Interpretation Comments Segs (test code = Segs) 63.7 45.0-75.0 [place] [address]362-03-02 15:15:00 Test Item Value Reference Range Interpretation Comments Lymphocytes (test code = Lymphocytes) 17.7 20.0-40.0 [place] [address]362-03-02 15:15:00 Test Item Value Reference Range Interpretation Comments Monocytes (test code = Monocytes) 12.4 2.0-12.0 [place] [address]-03-02 15:15:00 Test Item Value Reference Range Interpretation Comments Eosinophils (test code = 4.7 See_Comment [A utomated message] The Eosinophils) system which ge nerated this result tra nsmitted reference range : <=4.0. The reference r patria was not used to int erpret this result as normal/abnormal . [place] [address]-03-02 15:15:00 Test Item Value Reference Range Interpretation Comments Basophils (test code = 1.5 See_Comment [Aut omated message] The Basophils) system which ge nerated this result tra nsmitted reference range : <=1.0. The reference r patria was not used to int erpret this result as normal/abnormal . [place] [address]-03-02 15:15:00 Test Item Value Reference Range Interpretation Comments Neutrophils # (test code = Neutrophils 4.1 1.5-8.1 #) [place] [address]-03-02 15:15:00 Test Item Value Reference Range Interpretation Comments Lymphocytes # (test code = Lymphocytes 1.1 1.0-5.5 #) [place] [address]-03-02 15:15:00 Test Item Value Reference Range Interpretation Comments Monocytes # (test code 0.8 See_Comment [Aut omated message] The = Monocytes #) system which generated this result tra nsmitted reference range : <=0.8. The reference r patria was not used to int erpret this result as normal/abnormal . [place] [address]-03-02 15:15:00 Test Item Value Reference Range Interpretation Comments Eosinophils # (test code 0.3 See_Comment [A utomated message] The = Eosinophils #) system whic h generated this result tra nsmitted reference range : <=0.5. The reference r patria was not used to int erpret this result as normal/abnormal . [place] [address]-03-02 15:15:00 Test Item Value Reference Range Interpretation Comments Basophils # (test code 0.1 See_Comment [Aut omated message] The = Basophils #) system which generated this result tra nsmitted reference range : <=0.2. The reference r patria was not used to int erpret this result as normal/abnormal . [place] [address]-03-02 15:15:00 Test Item Value Reference Range Interpretation Comments WBC (test code = WBC) 6.4 3.7-10.4 [place] [address]-03-02 15:15:00 Test Item Value Reference Range Interpretation Comments RBC (test code = RBC) 2.65 4.20-5.40 [place] [address]-03-02 15:15:00 Test Item Value Reference Range Interpretation Comments Hgb (test code = Hgb) 8.7 12.0-16.0 [address]03-02 15:15:00 Test Item Value Reference Range Interpretation Comments Hct (test code = Hct) 25.0 36.0-48.0 [place] [address]-03-02 15:15:00 Test Item Value Reference Range Interpretation Comments MCV (test code = MCV) 94.4 80.0-98.0 [place] [address]-03-02 15:15:00 Test Item Value Reference Range Interpretation Comments MCH (test code = MCH) 32.7 pg 27.0-31.0 [place] [address]-03-02 15:15:00 Test Item Value Reference Range Interpretation Comments MCHC (test code = MCHC) 34.6 32.0-36.0 [place] [address]-03-02 15:15:00 Test Item Value Reference Range Interpretation Comments RDW (test code = RDW) 15.9 11.5-14.5 [place] [address]-03-02 15:15:00 Test Item Value Reference Range Interpretation Comments Platelet (test code = Platelet) 468 133-450 [place] [address]-03-02 15:15:00 Test Item Value Reference Range Interpretation Comments MPV (test code = MPV) 7.1 7.4-10.4 [place] [address]-03-02 15:15:00 Test Item Value Reference Range Interpretation Comments Segs (test code = Segs) 63.7 45.0-75.0 [place] [address]-03-02 15:15:00 Test Item Value Reference Range Interpretation Comments Lymphocytes (test code = Lymphocytes) 17.7 20.0-40.0 [place] [address]-03-02 15:15:00 Test Item Value Reference Range Interpretation Comments Monocytes (test code = Monocytes) 12.4 2.0-12.0 [place] [address]-03-02 15:15:00 Test Item Value Reference Range Interpretation Comments Eosinophils (test code = 4.7 See_Comment [A utomated message] The Eosinophils) system which ge nerated this result tra nsmitted reference range : <=4.0. The reference r patria was not used to int erpret this result as normal/abnormal . [address]03-02 15:15:00 Test Item Value Reference Range Interpretation Comments Basophils (test code = 1.5 See_Comment [Aut omated message] The Basophils) system which ge nerated this result tra nsmitted reference range : <=1.0. The reference r patria was not used to int erpret this result as normal/abnormal . [place] [address]-03-02 15:15:00 Test Item Value Reference Range Interpretation Comments Neutrophils # (test code = Neutrophils 4.1 1.5-8.1 #) [place] [address]-03-02 15:15:00 Test Item Value Reference Range Interpretation Comments Lymphocytes # (test code = Lymphocytes 1.1 1.0-5.5 #) [place] [address]-03-02 15:15:00 Test Item Value Reference Range Interpretation Comments Monocytes # (test code 0.8 See_Comment [Aut omated message] The = Monocytes #) system which generated this result tra nsmitted reference range : <=0.8. The reference r patrai was not used to int erpret this result as normal/abnormal . [place] [address]-03-02 15:15:00 Test Item Value Reference Range Interpretation Comments Eosinophils # (test code 0.3 See_Comment [A utomated message] The = Eosinophils #) system whic h generated this result tra nsmitted reference range : <=0.5. The reference r patria was not used to int erpret this result as normal/abnormal . [place] [address]-03-02 15:15:00 Test Item Value Reference Range Interpretation Comments Basophils # (test code 0.1 See_Comment [Aut omated message] The = Basophils #) system which generated this result tra nsmitted reference range : <=0.2. The reference r patria was not used to int erpret this result as normal/abnormal . [place] [address]-03-02 15:15:00 Test Item Value Reference Range Interpretation Comments WBC (test code = WBC) 6.4 3.7-10.4 [place] [address]-03-02 15:15:00 Test Item Value Reference Range Interpretation Comments RBC (test code = RBC) 2.65 4.20-5.40 [place] [address]-03-02 15:15:00 Test Item Value Reference Range Interpretation Comments Hgb (test code = Hgb) 8.7 12.0-16.0 [place] [address]-03-02 15:15:00 Test Item Value Reference Range Interpretation Comments Hct (test code = Hct) 25.0 36.0-48.0 [place] [address]-03-02 15:15:00 Test Item Value Reference Range Interpretation Comments MCV (test code = MCV) 94.4 80.0-98.0 [place] [address]-03-02 15:15:00 Test Item Value Reference Range Interpretation Comments MCH (test code = MCH) 32.7 pg 27.0-31.0 [place] [address]-03-02 15:15:00 Test Item Value Reference Range Interpretation Comments MCHC (test code = MCHC) 34.6 32.0-36.0 [place] [address]-03-02 15:15:00 Test Item Value Reference Range Interpretation Comments RDW (test code = RDW) 15.9 11.5-14.5 [place] [address]-03-02 15:15:00 Test Item Value Reference Range Interpretation Comments Platelet (test code = Platelet) 468 133-450 [place] [address]-03-02 15:15:00 Test Item Value Reference Range Interpretation Comments MPV (test code = MPV) 7.1 7.4-10.4 [place] [address]-03-02 15:15:00 Test Item Value Reference Range Interpretation Comments Segs (test code = Segs) 63.7 45.0-75.0 [place] [address]-03-02 15:15:00 Test Item Value Reference Range Interpretation Comments Lymphocytes (test code = Lymphocytes) 17.7 20.0-40.0 [place] [address]-03-02 15:15:00 Test Item Value Reference Range Interpretation Comments Monocytes (test code = Monocytes) 12.4 2.0-12.0 [place] [address]-03-02 15:15:00 Test Item Value Reference Range Interpretation Comments Eosinophils (test code = 4.7 See_Comment [A utomated message] The Eosinophils) system which ge nerated this result tra nsmitted reference range : <=4.0. The reference r patria was not used to int erpret this result as normal/abnormal . [place] [address]-03-02 15:15:00 Test Item Value Reference Range Interpretation Comments Basophils (test code = 1.5 See_Comment [Aut omated message] The Basophils) system which ge nerated this result tra nsmitted reference range : <=1.0. The reference r patria was not used to int erpret this result as normal/abnormal . [place] [address]-03-02 15:15:00 Test Item Value Reference Range Interpretation Comments Neutrophils # (test code = Neutrophils 4.1 1.5-8.1 #) [place] [address]-03-02 15:15:00 Test Item Value Reference Range Interpretation Comments Lymphocytes # (test code = Lymphocytes 1.1 1.0-5.5 #) [place] [address]-03-02 15:15:00 Test Item Value Reference Range Interpretation Comments Monocytes # (test code 0.8 See_Comment [Aut omated message] The = Monocytes #) system which generated this result tra nsmitted reference range : <=0.8. The reference r patria was not used to int erpret this result as normal/abnormal . [place] [address]-03-02 15:15:00 Test Item Value Reference Range Interpretation Comments Eosinophils # (test code 0.3 See_Comment [A utomated message] The = Eosinophils #) system whic h generated this result tra nsmitted reference range : <=0.5. The reference r patria was not used to int erpret this result as normal/abnormal . [place] [address]-03-02 15:15:00 Test Item Value Reference Range Interpretation Comments Basophils # (test code 0.1 See_Comment [Aut omated message] The = Basophils #) system which generated this result tra nsmitted reference range : <=0.2. The reference r patria was not used to int erpret this result as normal/abnormal . [place] [address]-03-02 15:15:00 Test Item Value Reference Range Interpretation Comments WBC (test code = WBC) 6.4 3.7-10.4 [place] [address]-03-02 15:15:00 Test Item Value Reference Range Interpretation Comments RBC (test code = RBC) 2.65 4.20-5.40 [place] [address]-03-02 15:15:00 Test Item Value Reference Range Interpretation Comments Hgb (test code = Hgb) 8.7 12.0-16.0 [place] [address]-03-02 15:15:00 Test Item Value Reference Range Interpretation Comments Hct (test code = Hct) 25.0 36.0-48.0 [place] [address]-03-02 15:15:00 Test Item Value Reference Range Interpretation Comments MCV (test code = MCV) 94.4 80.0-98.0 [place] [address]-03-02 15:15:00 Test Item Value Reference Range Interpretation Comments MCH (test code = MCH) 32.7 pg 27.0-31.0 [place] [address]-03-02 15:15:00 Test Item Value Reference Range Interpretation Comments MCHC (test code = MCHC) 34.6 32.0-36.0 [place] [address]-03-02 15:15:00 Test Item Value Reference Range Interpretation Comments RDW (test code = RDW) 15.9 11.5-14.5 [place] [address]-03-02 15:15:00 Test Item Value Reference Range Interpretation Comments Platelet (test code = Platelet) 468 133-450 [place] [address]-03-02 15:15:00 Test Item Value Reference Range Interpretation Comments MPV (test code = MPV) 7.1 7.4-10.4 [place] [address]-03-02 15:15:00 Test Item Value Reference Range Interpretation Comments Segs (test code = Segs) 63.7 45.0-75.0 [place] [address]-03-02 15:15:00 Test Item Value Reference Range Interpretation Comments Lymphocytes (test code = Lymphocytes) 17.7 20.0-40.0 [place] [address]-03-02 15:15:00 Test Item Value Reference Range Interpretation Comments Monocytes (test code = Monocytes) 12.4 2.0-12.0 [place] [address]-03-02 15:15:00 Test Item Value Reference Range Interpretation Comments Eosinophils (test code = 4.7 See_Comment [A utomated message] The Eosinophils) system which ge nerated this result tra nsmitted reference range : <=4.0. The reference r patria was not used to int erpret this result as normal/abnormal . [place] [address]-03-02 15:15:00 Test Item Value Reference Range Interpretation Comments Basophils (test code = 1.5 See_Comment [Aut omated message] The Basophils) system which ge nerated this result tra nsmitted reference range : <=1.0. The reference r patria was not used to int erpret this result as normal/abnormal . [place] [address]-03-02 15:15:00 Test Item Value Reference Range Interpretation Comments Neutrophils # (test code = Neutrophils 4.1 1.5-8.1 #) [place] [address]-03-02 15:15:00 Test Item Value Reference Range Interpretation Comments Lymphocytes # (test code = Lymphocytes 1.1 1.0-5.5 #) [place] [address]-03-02 15:15:00 Test Item Value Reference Range Interpretation Comments Monocytes # (test code 0.8 See_Comment [Aut omated message] The = Monocytes #) system which generated this result tra nsmitted reference range : <=0.8. The reference r patria was not used to int erpret this result as normal/abnormal . [place] [address]-03-02 15:15:00 Test Item Value Reference Range Interpretation Comments Eosinophils # (test code 0.3 See_Comment [A utomated message] The = Eosinophils #) system whic h generated this result tra nsmitted reference range : <=0.5. The reference r patria was not used to int erpret this result as normal/abnormal . [address]03-02 15:15:00 Test Item Value Reference Range Interpretation Comments Basophils # (test code 0.1 See_Comment [Aut omated message] The = Basophils #) system which generated this result tra nsmitted reference range : <=0.2. The reference r patria was not used to int erpret this result as normal/abnormal . [place] [address]-03-02 15:15:00 Test Item Value Reference Range Interpretation Comments WBC (test code = WBC) 6.4 3.7-10.4 [place] [address]-03-02 15:15:00 Test Item Value Reference Range Interpretation Comments RBC (test code = RBC) 2.65 4.20-5.40 [address]03-02 15:15:00 Test Item Value Reference Range Interpretation Comments Hgb (test code = Hgb) 8.7 12.0-16.0 [address]03-02 15:15:00 Test Item Value Reference Range Interpretation Comments Hct (test code = Hct) 25.0 36.0-48.0 [place] [address]-03-02 15:15:00 Test Item Value Reference Range Interpretation Comments MCV (test code = MCV) 94.4 80.0-98.0 [place] [address]-03-02 15:15:00 Test Item Value Reference Range Interpretation Comments MCH (test code = MCH) 32.7 pg 27.0-31.0 [place] [address]-03-02 15:15:00 Test Item Value Reference Range Interpretation Comments MCHC (test code = MCHC) 34.6 32.0-36.0 [place] [address]-03-02 15:15:00 Test Item Value Reference Range Interpretation Comments RDW (test code = RDW) 15.9 11.5-14.5 [place] [address]-03-02 15:15:00 Test Item Value Reference Range Interpretation Comments Platelet (test code = Platelet) 468 133-450 [place] [address]-03-02 15:15:00 Test Item Value Reference Range Interpretation Comments MPV (test code = MPV) 7.1 7.4-10.4 [place] [address]-03-02 15:15:00 Test Item Value Reference Range Interpretation Comments Segs (test code = Segs) 63.7 45.0-75.0 [place] [address]-03-02 15:15:00 Test Item Value Reference Range Interpretation Comments Lymphocytes (test code = Lymphocytes) 17.7 20.0-40.0 [place] [address]-03-02 15:15:00 Test Item Value Reference Range Interpretation Comments Monocytes (test code = Monocytes) 12.4 2.0-12.0 [place] [address]-03-02 15:15:00 Test Item Value Reference Range Interpretation Comments Eosinophils (test code = 4.7 See_Comment [A utomated message] The Eosinophils) system which ge nerated this result tra nsmitted reference range : <=4.0. The reference r patria was not used to int erpret this result as normal/abnormal . [address]03-02 15:15:00 Test Item Value Reference Range Interpretation Comments Basophils (test code = 1.5 See_Comment [Aut omated message] The Basophils) system which ge nerated this result tra nsmitted reference range : <=1.0. The reference r patria was not used to int erpret this result as normal/abnormal . [place] [address]-03-02 15:15:00 Test Item Value Reference Range Interpretation Comments Neutrophils # (test code = Neutrophils 4.1 1.5-8.1 #) [place] [address]-03-02 15:15:00 Test Item Value Reference Range Interpretation Comments Lymphocytes # (test code = Lymphocytes 1.1 1.0-5.5 #) [place] [address]-03-02 15:15:00 Test Item Value Reference Range Interpretation Comments Monocytes # (test code 0.8 See_Comment [Aut omated message] The = Monocytes #) system which generated this result tra nsmitted reference range : <=0.8. The reference r patria was not used to int erpret this result as normal/abnormal . [place] [address]-03-02 15:15:00 Test Item Value Reference Range Interpretation Comments Eosinophils # (test code 0.3 See_Comment [A utomated message] The = Eosinophils #) system whic h generated this result tra nsmitted reference range : <=0.5. The reference r patria was not used to int erpret this result as normal/abnormal . [facility]958[facility] 15:15:00 Test Item Value Reference Range Interpretation Comments Basophils # (test code 0.1 See_Comment [Aut omated message] The = Basophils #) system which generated this result tra nsmitted reference range : <=0.2. The reference r patria was not used to int erpret this result as normal/abnormal . [facility]vtqchtXQEYFT[facility]TND8203-16-28 15:15:00 Test Item Value Reference Range Interpretation Comments WBC (test code = WBC) 6.4 3.7-10.4 [place] [address]-03-02 15:15:00 Test Item Value Reference Range Interpretation Comments RBC (test code = RBC) 2.65 4.20-5.40 [place] [address]-03-02 15:15:00 Test Item Value Reference Range Interpretation Comments Hgb (test code = Hgb) 8.7 12.0-16.0 [place] [address]-03-02 15:15:00 Test Item Value Reference Range Interpretation Comments Hct (test code = Hct) 25.0 36.0-48.0 [place] [address]-03-02 15:15:00 Test Item Value Reference Range Interpretation Comments MCV (test code = MCV) 94.4 80.0-98.0 [place] [address]-03-02 15:15:00 Test Item Value Reference Range Interpretation Comments MCH (test code = MCH) 32.7 pg 27.0-31.0 [place] [address]-03-02 15:15:00 Test Item Value Reference Range Interpretation Comments MCHC (test code = MCHC) 34.6 32.0-36.0 [place] [address]-03-02 15:15:00 Test Item Value Reference Range Interpretation Comments RDW (test code = RDW) 15.9 11.5-14.5 [place] [address]-03-02 15:15:00 Test Item Value Reference Range Interpretation Comments Platelet (test code = Platelet) 468 133-450 [facility]ypeprrFCNUPVFBUQ5811-35-09 15:15:00 Test Item Value Reference Range Interpretation Comments MPV (test code = MPV) 7.1 7.4-10.4 [place] [address]-03-02 15:15:00 Test Item Value Reference Range Interpretation Comments Segs (test code = Segs) 63.7 45.0-75.0 [place] [address]-03-02 15:15:00 Test Item Value Reference Range Interpretation Comments Lymphocytes (test code = Lymphocytes) 17.7 20.0-40.0 [place] [address]-03-02 15:15:00 Test Item Value Reference Range Interpretation Comments Monocytes (test code = Monocytes) 12.4 2.0-12.0 [place] [address]-03-02 15:15:00 Test Item Value Reference Range Interpretation Comments Eosinophils (test code = 4.7 See_Comment [A utomated message] The Eosinophils) system which ge nerated this result tra nsmitted reference range : <=4.0. The reference r patria was not used to int erpret this result as normal/abnormal . [place] [address]-03-02 15:15:00 Test Item Value Reference Range Interpretation Comments Basophils (test code = 1.5 See_Comment [Aut omated message] The Basophils) system which ge nerated this result tra nsmitted reference range : <=1.0. The reference r patria was not used to int erpret this result as normal/abnormal . [place] [address]-03-02 15:15:00 Test Item Value Reference Range Interpretation Comments Neutrophils # (test code = Neutrophils 4.1 1.5-8.1 #) [place] [address]-03-02 15:15:00 Test Item Value Reference Range Interpretation Comments Lymphocytes # (test code = Lymphocytes 1.1 1.0-5.5 #) [place] [address]-03-02 15:15:00 Test Item Value Reference Range Interpretation Comments Monocytes # (test code 0.8 See_Comment [Aut omated message] The = Monocytes #) system which generated this result tra nsmitted reference range : <=0.8. The reference r patria was not used to int erpret this result as normal/abnormal . [place] [address]-03-02 15:15:00 Test Item Value Reference Range Interpretation Comments Eosinophils # (test code 0.3 See_Comment [A utomated message] The = Eosinophils #) system whic h generated this result tra nsmitted reference range : <=0.5. The reference r patria was not used to int erpret this result as normal/abnormal . [facility]qqtjav[facility]YBLWAGKX4617-40-17 15:15:00 Test Item Value Reference Range Interpretation Comments Basophils # (test code 0.1 See_Comment [Aut omated message] The = Basophils #) system which generated this result tra nsmitted reference range : <=0.2. The reference r patria was not used to int erpret this result as normal/abnormal . [facility]DlwkjrxGIINBSPEXU9015-80-83 15:15:00 Test Item Value Reference Range Interpretation Comments WBC (test code = WBC) 6.4 3.7-10.4 [place] [address]-03-02 15:15:00 Test Item Value Reference Range Interpretation Comments RBC (test code = RBC) 2.65 4.20-5.40 [place] [address]-03-02 15:15:00 Test Item Value Reference Range Interpretation Comments Hgb (test code = Hgb) 8.7 12.0-16.0 [place] [address]-03-02 15:15:00 Test Item Value Reference Range Interpretation Comments Hct (test code = Hct) 25.0 36.0-48.0 [place] [address]-03-02 15:15:00 Test Item Value Reference Range Interpretation Comments MCV (test code = MCV) 94.4 80.0-98.0 [place] [address]-03-02 15:15:00 Test Item Value Reference Range Interpretation Comments MCH (test code = MCH) 32.7 pg 27.0-31.0 [place] [address]-03-02 15:15:00 Test Item Value Reference Range Interpretation Comments MCHC (test code = MCHC) 34.6 32.0-36.0 [place] [address]-03-02 15:15:00 Test Item Value Reference Range Interpretation Comments RDW (test code = RDW) 15.9 11.5-14.5 [place] [address]-03-02 15:15:00 Test Item Value Reference Range Interpretation Comments Platelet (test code = Platelet) 468 133-450 [place] [address]-03-02 15:15:00 Test Item Value Reference Range Interpretation Comments MPV (test code = MPV) 7.1 7.4-10.4 [place] [address]-03-02 15:15:00 Test Item Value Reference Range Interpretation Comments Segs (test code = Segs) 63.7 45.0-75.0 [place] [address]-03-02 15:15:00 Test Item Value Reference Range Interpretation Comments Lymphocytes (test code = Lymphocytes) 17.7 20.0-40.0 [place] [address]-03-02 15:15:00 Test Item Value Reference Range Interpretation Comments Monocytes (test code = Monocytes) 12.4 2.0-12.0 [place] [address]-03-02 15:15:00 Test Item Value Reference Range Interpretation Comments Eosinophils (test code = 4.7 See_Comment [A utomated message] The Eosinophils) system which ge nerated this result tra nsmitted reference range : <=4.0. The reference r patria was not used to int erpret this result as normal/abnormal . [place] [address]-03-02 15:15:00 Test Item Value Reference Range Interpretation Comments Basophils (test code = 1.5 See_Comment [Aut omated message] The Basophils) system which ge nerated this result tra nsmitted reference range : <=1.0. The reference r patria was not used to int erpret this result as normal/abnormal . [place] [address]-03-02 15:15:00 Test Item Value Reference Range Interpretation Comments Neutrophils # (test code = Neutrophils 4.1 1.5-8.1 #) [place] [address]-03-02 15:15:00 Test Item Value Reference Range Interpretation Comments Lymphocytes # (test code = Lymphocytes 1.1 1.0-5.5 #) [place] [address]-03-02 15:15:00 Test Item Value Reference Range Interpretation Comments Monocytes # (test code 0.8 See_Comment [Aut omated message] The = Monocytes #) system which generated this result tra nsmitted reference range : <=0.8. The reference r patria was not used to int erpret this result as normal/abnormal . [place] [address]-03-02 15:15:00 Test Item Value Reference Range Interpretation Comments Eosinophils # (test code 0.3 See_Comment [A utomated message] The = Eosinophils #) system whic h generated this result tra nsmitted reference range : <=0.5. The reference r patria was not used to int erpret this result as normal/abnormal . [facility]:15:00 Test Item Value Reference Range Interpretation Comments Basophils # (test code 0.1 See_Comment [Aut omated message] The = Basophils #) system which generated this result tra nsmitted reference range : <=0.2. The reference r patria was not used to int erpret this result as normal/abnormal . [facility]stuOQXXQPCYAL7622-30-62 15:15:00 Test Item Value Reference Range Interpretation Comments WBC (test code = WBC) 6.4 3.7-10.4 [place]362-03-02 15:15:00 Test Item Value Reference Range Interpretation Comments RBC (test code = RBC) 2.65 4.20-5.40 [place]362-03-02 15:15:00 Test Item Value Reference Range Interpretation Comments Hgb (test code = Hgb) 8.7 12.0-16.0 [place] [address]-03-02 15:15:00 Test Item Value Reference Range Interpretation Comments Hct (test code = Hct) 25.0 36.0-48.0 [facility]kxfjuAKRMQHCRMA6675-45-22 15:15:00 Test Item Value Reference Range Interpretation Comments MCV (test code = MCV) 94.4 80.0-98.0 [place] [address]-03-02 15:15:00 Test Item Value Reference Range Interpretation Comments MCH (test code = MCH) 32.7 pg 27.0-31.0 [place]362-03-02 15:15:00 Test Item Value Reference Range Interpretation Comments MCHC (test code = MCHC) 34.6 32.0-36.0 [place] [address]-03-02 15:15:00 Test Item Value Reference Range Interpretation Comments RDW (test code = RDW) 15.9 11.5-14.5 [place] [address]362-03-02 15:15:00 Test Item Value Reference Range Interpretation Comments Platelet (test code = Platelet) 468 133-450 [facility]qhejghAJQRLRGISU7120-95-86 15:15:00 Test Item Value Reference Range Interpretation Comments MPV (test code = MPV) 7.1 7.4-10.4 [place] [address]-03-02 15:15:00 Test Item Value Reference Range Interpretation Comments Segs (test code = Segs) 63.7 45.0-75.0 [place] [address]-03-02 15:15:00 Test Item Value Reference Range Interpretation Comments Lymphocytes (test code = Lymphocytes) 17.7 20.0-40.0 [place] [address]-03-02 15:15:00 Test Item Value Reference Range Interpretation Comments Monocytes (test code = Monocytes) 12.4 2.0-12.0 [place] [address]-03-02 15:15:00 Test Item Value Reference Range Interpretation Comments Eosinophils (test code = 4.7 See_Comment [A utomated message] The Eosinophils) system which ge nerated this result tra nsmitted reference range : <=4.0. The reference r patria was not used to int erpret this result as normal/abnormal . [place] [address]-03-02 15:15:00 Test Item Value Reference Range Interpretation Comments Basophils (test code = 1.5 See_Comment [Aut omated message] The Basophils) system which ge nerated this result tra nsmitted reference range : <=1.0. The reference r patria was not used to int erpret this result as normal/abnormal . [place] [address]-03-02 15:15:00 Test Item Value Reference Range Interpretation Comments Neutrophils # (test code = Neutrophils 4.1 1.5-8.1 #) [place] [address]-03-02 15:15:00 Test Item Value Reference Range Interpretation Comments Lymphocytes # (test code = Lymphocytes 1.1 1.0-5.5 #) [place] [address]-03-02 15:15:00 Test Item Value Reference Range Interpretation Comments Monocytes # (test code 0.8 See_Comment [Aut omated message] The = Monocytes #) system which generated this result tra nsmitted reference range : <=0.8. The reference r patria was not used to int erpret this result as normal/abnormal . [place] [address]-03-02 15:15:00 Test Item Value Reference Range Interpretation Comments Eosinophils # (test code 0.3 See_Comment [A utomated message] The = Eosinophils #) system whic h generated this result tra nsmitted reference range : <=0.5. The reference r patria was not used to int erpret this result as normal/abnormal . [place] [address]362-03-02 15:15:00 Test Item Value Reference Range Interpretation Comments Basophils # (test code 0.1 See_Comment [Aut omated message] The = Basophils #) system which generated this result tra nsmitted reference range : <=0.2. The reference r patria was not used to int erpret this result as normal/abnormal . [place] [address]-03-02 15:15:00 Test Item Value Reference Range Interpretation Comments WBC (test code = WBC) 6.4 3.7-10.4 [place] [address]-03-02 15:15:00 Test Item Value Reference Range Interpretation Comments RBC (test code = RBC) 2.65 4.20-5.40 [place] [address]-03-02 15:15:00 Test Item Value Reference Range Interpretation Comments Hgb (test code = Hgb) 8.7 12.0-16.0 [place] [address]-03-02 15:15:00 Test Item Value Reference Range Interpretation Comments Hct (test code = Hct) 25.0 36.0-48.0 [place] [address]-03-02 15:15:00 Test Item Value Reference Range Interpretation Comments MCV (test code = MCV) 94.4 80.0-98.0 [place] [address]-03-02 15:15:00 Test Item Value Reference Range Interpretation Comments MCH (test code = MCH) 32.7 pg 27.0-31.0 [place] [address]-03-02 15:15:00 Test Item Value Reference Range Interpretation Comments MCHC (test code = MCHC) 34.6 32.0-36.0 [place] [address]-03-02 15:15:00 Test Item Value Reference Range Interpretation Comments RDW (test code = RDW) 15.9 11.5-14.5 [place] [address]362-03-02 15:15:00 Test Item Value Reference Range Interpretation Comments Platelet (test code = Platelet) 468 613-446 [facility]QqotdwsEAGCPVMGHC3453-31-56 15:15:00 Test Item Value Reference Range Interpretation Comments MPV (test code = MPV) 7.1 7.4-10.4 [place] [address]362-03-02 15:15:00 Test Item Value Reference Range Interpretation Comments Segs (test code = Segs) 63.7 45.0-75.0 [place]-03-02 15:15:00 Test Item Value Reference Range Interpretation Comments Lymphocytes (test code = Lymphocytes) 17.7 20.0-40.0 [place] [address]-03-02 15:15:00 Test Item Value Reference Range Interpretation Comments Monocytes (test code = Monocytes) 12.4 2.0-12.0 [place] [address]-03-02 15:15:00 Test Item Value Reference Range Interpretation Comments Eosinophils (test code = 4.7 See_Comment [A utomated message] The Eosinophils) system which ge nerated this result tra nsmitted reference range : <=4.0. The reference r patria was not used to int erpret this result as normal/abnormal . [place] [address]-03-02 15:15:00 Test Item Value Reference Range Interpretation Comments Basophils (test code = 1.5 See_Comment [Aut omated message] The Basophils) system which ge nerated this result tra nsmitted reference range : <=1.0. The reference r patria was not used to int erpret this result as normal/abnormal . [place] [address]-03-02 15:15:00 Test Item Value Reference Range Interpretation Comments Neutrophils # (test code = Neutrophils 4.1 1.5-8.1 #) [place] [address]-03-02 15:15:00 Test Item Value Reference Range Interpretation Comments Lymphocytes # (test code = Lymphocytes 1.1 1.0-5.5 #) [place] [address]-03-02 15:15:00 Test Item Value Reference Range Interpretation Comments Monocytes # (test code 0.8 See_Comment [Aut omated message] The = Monocytes #) system which generated this result tra nsmitted reference range : <=0.8. The reference r patria was not used to int erpret this result as normal/abnormal . [place] [address]-03-02 15:15:00 Test Item Value Reference Range Interpretation Comments Eosinophils # (test code 0.3 See_Comment [A utomated message] The = Eosinophils #) system whic h generated this result tra nsmitted reference range : <=0.5. The reference r patria was not used to int erpret this result as normal/abnormal . [place] [address]-03-02 15:15:00 Test Item Value Reference Range Interpretation Comments Basophils # (test code 0.1 See_Comment [Aut omated message] The = Basophils #) system which generated this result tra nsmitted reference range : <=0.2. The reference r patria was not used to int erpret this result as normal/abnormal . [place] [address]-03-02 15:15:00 Test Item Value Reference Range Interpretation Comments WBC (test code = WBC) 6.4 3.7-10.4 [place] [address]-03-02 15:15:00 Test Item Value Reference Range Interpretation Comments RBC (test code = RBC) 2.65 4.20-5.40 [place] [address]-03-02 15:15:00 Test Item Value Reference Range Interpretation Comments Hgb (test code = Hgb) 8.7 12.0-16.0 [place] [address]-03-02 15:15:00 Test Item Value Reference Range Interpretation Comments Hct (test code = Hct) 25.0 36.0-48.0 [place] [address]-03-02 15:15:00 Test Item Value Reference Range Interpretation Comments MCV (test code = MCV) 94.4 80.0-98.0 [place] [address]-03-02 15:15:00 Test Item Value Reference Range Interpretation Comments MCH (test code = MCH) 32.7 pg 27.0-31.0 [place] [address]-03-02 15:15:00 Test Item Value Reference Range Interpretation Comments MCHC (test code = MCHC) 34.6 32.0-36.0 [place] [address]-03-02 15:15:00 Test Item Value Reference Range Interpretation Comments RDW (test code = RDW) 15.9 11.5-14.5 [address]03-02 15:15:00 Test Item Value Reference Range Interpretation Comments Platelet (test code = Platelet) 468 133-450 [place] [address]-03-02 15:15:00 Test Item Value Reference Range Interpretation Comments MPV (test code = MPV) 7.1 7.4-10.4 [place] [address]-03-02 15:15:00 Test Item Value Reference Range Interpretation Comments Segs (test code = Segs) 63.7 45.0-75.0 [place] [address]-03-02 15:15:00 Test Item Value Reference Range Interpretation Comments Lymphocytes (test code = Lymphocytes) 17.7 20.0-40.0 [place] [address]-03-02 15:15:00 Test Item Value Reference Range Interpretation Comments Monocytes (test code = Monocytes) 12.4 2.0-12.0 [place] [address]-03-02 15:15:00 Test Item Value Reference Range Interpretation Comments Eosinophils (test code = 4.7 See_Comment [A utomated message] The Eosinophils) system which ge nerated this result tra nsmitted reference range : <=4.0. The reference r patria was not used to int erpret this result as normal/abnormal . [place] [address]-03-02 15:15:00 Test Item Value Reference Range Interpretation Comments Basophils (test code = 1.5 See_Comment [Aut omated message] The Basophils) system which ge nerated this result tra nsmitted reference range : <=1.0. The reference r patria was not used to int erpret this result as normal/abnormal . [place] [address]-03-02 15:15:00 Test Item Value Reference Range Interpretation Comments Neutrophils # (test code = Neutrophils 4.1 1.5-8.1 #) [place] [address]-03-02 15:15:00 Test Item Value Reference Range Interpretation Comments Lymphocytes # (test code = Lymphocytes 1.1 1.0-5.5 #) [place] [address]-03-02 15:15:00 Test Item Value Reference Range Interpretation Comments Monocytes # (test code 0.8 See_Comment [Aut omated message] The = Monocytes #) system which generated this result tra nsmitted reference range : <=0.8. The reference r patria was not used to int erpret this result as normal/abnormal . [place] [address]-03-02 15:15:00 Test Item Value Reference Range Interpretation Comments Eosinophils # (test code 0.3 See_Comment [A utomated message] The = Eosinophils #) system whic h generated this result tra nsmitted reference range : <=0.5. The reference r patria was not used to int erpret this result as normal/abnormal . [place] [address]-03-02 15:15:00 Test Item Value Reference Range Interpretation Comments Basophils # (test code 0.1 See_Comment [Aut omated message] The = Basophils #) system which generated this result tra nsmitted reference range : <=0.2. The reference r patria was not used to int erpret this result as normal/abnormal . [place] [address]-03-02 15:15:00 Test Item Value Reference Range Interpretation Comments WBC (test code = WBC) 6.4 3.7-10.4 [place] [address]-03-02 15:15:00 Test Item Value Reference Range Interpretation Comments RBC (test code = RBC) 2.65 4.20-5.40 [place] [address]-03-02 15:15:00 Test Item Value Reference Range Interpretation Comments Hgb (test code = Hgb) 8.7 12.0-16.0 [place] [address]-03-02 15:15:00 Test Item Value Reference Range Interpretation Comments Hct (test code = Hct) 25.0 36.0-48.0 [place] [address]-03-02 15:15:00 Test Item Value Reference Range Interpretation Comments MCV (test code = MCV) 94.4 80.0-98.0 [place] [address]-03-02 15:15:00 Test Item Value Reference Range Interpretation Comments MCH (test code = MCH) 32.7 pg 27.0-31.0 [place] [address]-03-02 15:15:00 Test Item Value Reference Range Interpretation Comments MCHC (test code = MCHC) 34.6 32.0-36.0 [place] [address]-03-02 15:15:00 Test Item Value Reference Range Interpretation Comments RDW (test code = RDW) 15.9 11.5-14.5 [place] [address]-03-02 15:15:00 Test Item Value Reference Range Interpretation Comments Platelet (test code = Platelet) 468 133-450 [place] [address]-03-02 15:15:00 Test Item Value Reference Range Interpretation Comments MPV (test code = MPV) 7.1 7.4-10.4 [place] [address]-03-02 15:15:00 Test Item Value Reference Range Interpretation Comments Segs (test code = Segs) 63.7 45.0-75.0 [place] [address]-03-02 15:15:00 Test Item Value Reference Range Interpretation Comments Lymphocytes (test code = Lymphocytes) 17.7 20.0-40.0 [place] [address]-03-02 15:15:00 Test Item Value Reference Range Interpretation Comments Monocytes (test code = Monocytes) 12.4 2.0-12.0 [place] [address]-03-02 15:15:00 Test Item Value Reference Range Interpretation Comments Eosinophils (test code = 4.7 See_Comment [A utomated message] The Eosinophils) system which ge nerated this result tra nsmitted reference range : <=4.0. The reference r patria was not used to int erpret this result as normal/abnormal . [place] [address]-03-02 15:15:00 Test Item Value Reference Range Interpretation Comments Basophils (test code = 1.5 See_Comment [Aut omated message] The Basophils) system which ge nerated this result tra nsmitted reference range : <=1.0. The reference r patria was not used to int erpret this result as normal/abnormal . [place] [address]-02 15:15:00 Test Item Value Reference Range Interpretation Comments Neutrophils # (test code = Neutrophils 4.1 1.5-8.1 #) [place] [address]-03-02 15:15:00 Test Item Value Reference Range Interpretation Comments Lymphocytes # (test code = Lymphocytes 1.1 1.0-5.5 #) [place] [address]-03-02 15:15:00 Test Item Value Reference Range Interpretation Comments Monocytes # (test code 0.8 See_Comment [Aut omated message] The = Monocytes #) system which generated this result tra nsmitted reference range : <=0.8. The reference r patria was not used to int erpret this result as normal/abnormal . [place] [address]-02 15:15:00 Test Item Value Reference Range Interpretation Comments Eosinophils # (test code 0.3 See_Comment [A utomated message] The = Eosinophils #) system whic h generated this result tra nsmitted reference range : <=0.5. The reference r patria was not used to int erpret this result as normal/abnormal . [place] [address]-03-02 15:15:00 Test Item Value Reference Range Interpretation Comments Basophils # (test code 0.1 See_Comment [Aut omated message] The = Basophils #) system which generated this result tra nsmitted reference range : <=0.2. The reference r patria was not used to int erpret this result as normal/abnormal . [place] [address]-02 15:15:00 Test Item Value Reference Range Interpretation Comments WBC (test code = WBC) 6.4 3.7-10.4 [place] [address]-03-02 15:15:00 Test Item Value Reference Range Interpretation Comments RBC (test code = RBC) 2.65 4.20-5.40 [place] [address]-03-02 15:15:00 Test Item Value Reference Range Interpretation Comments Hgb (test code = Hgb) 8.7 12.0-16.0 [place] [address]-03-02 15:15:00 Test Item Value Reference Range Interpretation Comments Hct (test code = Hct) 25.0 36.0-48.0 [place] [address]-03-02 15:15:00 Test Item Value Reference Range Interpretation Comments MCV (test code = MCV) 94.4 80.0-98.0 [place] [address]-03-02 15:15:00 Test Item Value Reference Range Interpretation Comments MCH (test code = MCH) 32.7 pg 27.0-31.0 [place] [address]-03-02 15:15:00 Test Item Value Reference Range Interpretation Comments MCHC (test code = MCHC) 34.6 32.0-36.0 [place] [address]-03-02 15:15:00 Test Item Value Reference Range Interpretation Comments RDW (test code = RDW) 15.9 11.5-14.5 [place] [address]-03-02 15:15:00 Test Item Value Reference Range Interpretation Comments Platelet (test code = Platelet) 468 133-450 [place] [address]-02 15:15:00 Test Item Value Reference Range Interpretation Comments MPV (test code = MPV) 7.1 7.4-10.4 [place] [address]-03-02 15:15:00 Test Item Value Reference Range Interpretation Comments Segs (test code = Segs) 63.7 45.0-75.0 [place] [address]-03-02 15:15:00 Test Item Value Reference Range Interpretation Comments Lymphocytes (test code = Lymphocytes) 17.7 20.0-40.0 [place] [address]-03-02 15:15:00 Test Item Value Reference Range Interpretation Comments Monocytes (test code = Monocytes) 12.4 2.0-12.0 [place] [address]-03-02 15:15:00 Test Item Value Reference Range Interpretation Comments Eosinophils (test code = 4.7 See_Comment [A utomated message] The Eosinophils) system which ge nerated this result tra nsmitted reference range : <=4.0. The reference r patria was not used to int erpret this result as normal/abnormal . [place] [address]-02 15:15:00 Test Item Value Reference Range Interpretation Comments Basophils (test code = 1.5 See_Comment [Aut omated message] The Basophils) system which ge nerated this result tra nsmitted reference range : <=1.0. The reference r patria was not used to int erpret this result as normal/abnormal . [place] [address]-02 15:15:00 Test Item Value Reference Range Interpretation Comments Neutrophils # (test code = Neutrophils 4.1 1.5-8.1 #) [place] [address]-02 15:15:00 Test Item Value Reference Range Interpretation Comments Lymphocytes # (test code = Lymphocytes 1.1 1.0-5.5 #) [place] [address]-02 15:15:00 Test Item Value Reference Range Interpretation Comments Monocytes # (test code 0.8 See_Comment [Aut omated message] The = Monocytes #) system which generated this result tra nsmitted reference range : <=0.8. The reference r patria was not used to int erpret this result as normal/abnormal . [id number] 15:15:00 Test Item Value Reference Range Interpretation Comments Eosinophils # (test code 0.3 See_Comment [A utomated message] The = Eosinophils #) system whic h generated this result tra nsmitted reference range : <=0.5. The reference r patria was not used to int erpret this result as normal/abnormal . [facility]TlzzqcoKXWWTESETH7436-78-13 15:15:00 Test Item Value Reference Range Interpretation Comments Basophils # (test code 0.1 See_Comment [Aut omated message] The = Basophils #) system which generated this result tra nsmitted reference range : <=0.2. The reference r patria was not used to int erpret this result as normal/abnormal . [facility] [id number] 03:33:00 Test Item Value Reference Range Interpretation Comments UA Color (test code = Light Yellow UA Color) *NA*(01/09/22 9:33 PM) [facility] AND [id number] 03:33:00 Test Item Value Reference Range Interpretation Comments UA Turbidity (test code = Clear (01/09/22 9:33 UA Turbidity) PM) [facility] [id number] 03:33:00 Test Item Value Reference Range Interpretation Comments UA Spec Grav (test code = UA Spec 1.008 1 Grav) [facility] AND [id number] 03:33:00 Test Item Value Reference Range Interpretation Comments UA pH (test code = UA pH) 8.0 1 5.0-8.0 [facility] AND [id number] 03:33:00 Test Item Value Reference Range Interpretation Comments UA Protein (test code = UA Negative mg/dL Protein) [facility] AND [id number] 03:33:00 Test Item Value Reference Range Interpretation Comments UA Glucose (test code = UA Negative mg/dL Glucose) [facility] AND [id number] 03:33:00 Test Item Value Reference Range Interpretation Comments UA Ketones (test code = UA Negative mg/dL Ketones) [facility] [id number] 03:33:00 Test Item Value Reference Range Interpretation Comments UA Bili (test code = Negative *NA*(01/09/22 UA Bili) 9:33 PM) [facility] [id number] 03:33:00 Test Item Value Reference Range Interpretation Comments UA Blood (test code = Moderate *ABN*(01/09/22 UA Blood) 9:33 PM) [facility] [id number] 03:33:00 Test Item Value Reference Range Interpretation Comments UA Urobilinogen (test code = UA no gt 0.1-1.0 Urobilinogen) [facility] [id number] 03:33:00 Test Item Value Reference Range Interpretation Comments UA Nitrite (test code Negative (01/09/22 9:33 = UA Nitrite) PM) [facility] AND [id number] 03:33:00 Test Item Value Reference Range Interpretation Comments UA Leuk Est (test Negative (01/09/22 9:33 code = UA Leuk Est) PM) [facility] AND [id number] 03:33:00 Test Item Value Reference Range Interpretation Comments UA Sq Epi (test code = UA Sq Occasional /LPF Epi) [facility] AND [id number] 03:33:00 Test Item Value Reference Range Interpretation Comments UA WBC (test code = 3 See_Comment [Automa rosendo message] The UA WBC) system which ge nerated this result transmit rosendo reference range : <=5. The reference range was not used to interpr et this result as josi l/abnormal. [facility] AND [id number] 03:33:00 Test Item Value Reference Range Interpretation Comments UA RBC (test code = 8 See_Comment [Automa rosendo message] The UA RBC) system which ge nerated this result transmit rosendo reference range : <=2. The reference range was not used to interpr et this result as josi l/abnormal. [facility] AND [id number] 03:33:00 Test Item Value Reference Range Interpretation Comments UA Mucus (test code = UA Mucus) Few /LPF [facility] AND [id number] 03:33:00 Test Item Value Reference Range Interpretation Comments UA Color (test code = Light Yellow UA Color) *NA*(01/09/22 9:33 PM) [facility] [id number] 03:33:00 Test Item Value Reference Range Interpretation Comments UA Turbidity (test code = Clear (01/09/22 9:33 UA Turbidity) PM) [facility] [id number] 03:33:00 Test Item Value Reference Range Interpretation Comments UA Spec Grav (test code = UA Spec 1.008 1 Grav) [facility] [id number] 03:33:00 Test Item Value Reference Range Interpretation Comments UA pH (test code = UA pH) 8.0 1 5.0-8.0 [facility] AND [id number] 03:33:00 Test Item Value Reference Range Interpretation Comments UA Protein (test code = UA Negative mg/dL Protein) [facility] [id number] 03:33:00 Test Item Value Reference Range Interpretation Comments UA Glucose (test code = UA Negative mg/dL Glucose) [facility] [id number] 03:33:00 Test Item Value Reference Range Interpretation Comments UA Ketones (test code = UA Negative mg/dL Ketones) [facility] [id number] 03:33:00 Test Item Value Reference Range Interpretation Comments UA Bili (test code = Negative *NA*(01/09/22 UA Bili) 9:33 PM) [facility] [id number] 03:33:00 Test Item Value Reference Range Interpretation Comments UA Blood (test code = Moderate *ABN*(01/09/22 UA Blood) 9:33 PM) [facility] [id number] 03:33:00 Test Item Value Reference Range Interpretation Comments UA Urobilinogen (test code = UA no gt 0.1-1.0 Urobilinogen) [facility] [id number] 03:33:00 Test Item Value Reference Range Interpretation Comments UA Nitrite (test code Negative (01/09/22 9:33 = UA Nitrite) PM) [facility] [id number] 03:33:00 Test Item Value Reference Range Interpretation Comments UA Leuk Est (test Negative (01/09/22 9:33 code = [facility]A Leuk Est) PM) [facility] [id number] 03:33:00 Test Item Value Reference Range Interpretation Comments UA Sq Epi (test code = UA Sq Occasional /LPF Epi) [facility] [id number] 03:33:00 Test Item Value Reference Range Interpretation Comments UA WBC (test code = 3 See_Comment [Automa rosendo message] The UA WBC) system which ge nerated this result transmit rosendo reference range : <=5. The reference range was not used to interpr et this result as josi l/abnormal. [facility] [id number] 03:33:00 Test Item Value Reference Range Interpretation Comments UA RBC (test code = 8 See_Comment [Automa rosendo message] The UA RBC) system which ge nerated this result transmit rosendo reference range : <=2. The reference range was not used to interpr et this result as josi l/abnormal. [facility] [id number] 03:33:00 Test Item Value Reference Range Interpretation Comments UA Mucus (test code = UA Mucus) Few /LPF [facility] [id number] 03:33:00 Test Item Value Reference Range Interpretation Comments UA Color (test code = Light Yellow UA Color) *NA*(01/09/22 9:33 PM) [facility] [id number] 03:33:00 Test Item Value Reference Range Interpretation Comments UA Turbidity (test code = Clear (01/09/22 9:33 UA Turbidity) PM) [facility] [id number] 03:33:00 Test Item Value Reference Range Interpretation Comments UA Spec Grav (test code = UA Spec 1.008 1 Grav) [facility] [id number] 03:33:00 Test Item Value Reference Range Interpretation Comments UA pH (test code = UA pH) 8.0 1 5.0-8.0 [facility] [id number] 03:33:00 Test Item Value Reference Range Interpretation Comments UA Protein (test code = UA Negative mg/dL Protein) [facility] [id number] 03:33:00 Test Item Value Reference Range Interpretation Comments UA Glucose (test code = UA Negative mg/dL Glucose) [facility] [id number] 03:33:00 Test Item Value Reference Range Interpretation Comments UA Ketones (test code = UA Negative mg/dL Ketones) [facility] AND [id number] 03:33:00 Test Item Value Reference Range Interpretation Comments UA Bili (test code = Negative *NA*(01/09/22 UA Bili) 9:33 PM) [facility] AND [id number] 03:33:00 Test Item Value Reference Range Interpretation Comments UA Blood (test code = Moderate *ABN*(01/09/22 UA Blood) 9:33 PM) [facility] AND [id number] 03:33:00 Test Item Value Reference Range Interpretation Comments UA Urobilinogen (test code = UA no gt 0.1-1.0 Urobilinogen) [facility] AND [id number] 03:33:00 Test Item Value Reference Range Interpretation Comments UA Nitrite (test code Negative (01/09/22 9:33 = UA Nitrite) PM) [facility] AND [id number] 03:33:00 Test Item Value Reference Range Interpretation Comments UA Leuk Est (test Negative (01/09/22 9:33 code = UA Leuk Est) PM) [facility] AND [id number] 03:33:00 Test Item Value Reference Range Interpretation Comments UA Sq Epi (test code = UA Sq Occasional /LPF Epi) [facility] AND [id number] 03:33:00 Test Item Value Reference Range Interpretation Comments UA WBC (test code = 3 See_Comment [Automa rosendo message] The UA WBC) system which ge nerated this result transmit rosendo reference range : <=5. The reference range was not used to interpr et this result as josi l/abnormal. [facility] AND [id number] 03:33:00 Test Item Value Reference Range Interpretation Comments UA RBC (test code = 8 See_Comment [Automa rosendo message] The UA RBC) system which ge nerated this result transmit rosendo reference range : <=2. The reference range was not used to interpr et this result as josi l/abnormal. [facility] AND [id number] 03:33:00 Test Item Value Reference Range Interpretation Comments UA Mucus (test code = UA Mucus) Few /LPF [facility] AND [id number] 03:33:00 Test Item Value Reference Range Interpretation Comments UA Color (test code = Light Yellow UA Color) *NA*(01/09/22 9:33 PM) [facility] AND [id number] 03:33:00 Test Item Value Reference Range Interpretation Comments UA Turbidity (test code = Clear (01/09/22 9:33 UA Turbidity) PM) [facility] AND [id number] 03:33:00 Test Item Value Reference Range Interpretation Comments UA Spec Grav (test code = UA Spec 1.008 1 Grav) [facility] AND [id number] 03:33:00 Test Item Value Reference Range Interpretation Comments UA pH (test code = UA pH) 8.0 1 5.0-8.0 [facility] AND [id number] 03:33:00 Test Item Value Reference Range Interpretation Comments UA Protein (test code = UA Negative mg/dL Protein) [facility] AND [id number] 03:33:00 Test Item Value Reference Range Interpretation Comments UA Glucose (test code = UA Negative mg/dL Glucose) [facility] AND [id number] 03:33:00 Test Item Value Reference Range Interpretation Comments UA Ketones (test code = UA Negative mg/dL Ketones) [facility] AND [id number] 03:33:00 Test Item Value Reference Range Interpretation Comments UA Bili (test code = Negative *NA*(01/09/22 UA Bili) 9:33 PM) [facility] AND [id number] 03:33:00 Test Item Value Reference Range Interpretation Comments UA Blood (test code = Moderate *ABN*(01/09/22 UA Blood) 9:33 PM) [facility] AND [id number] 03:33:00 Test Item Value Reference Range Interpretation Comments UA Urobilinogen (test code = UA no gt 0.1-1.0 Urobilinogen) [facility] AND [id number] 03:33:00 Test Item Value Reference Range Interpretation Comments UA Nitrite (test code Negative (01/09/22 9:33 = UA Nitrite) PM) [facility] AND [id number] 03:33:00 Test Item Value Reference Range Interpretation Comments UA Leuk Est (test Negative (01/09/22 9:33 code = UA Leuk Est) PM) [facility] [id number] 03:33:00 Test Item Value Reference Range Interpretation Comments UA Sq Epi (test code = UA Sq Occasional /LPF Epi) [facility] [id number] 03:33:00 Test Item Value Reference Range Interpretation Comments UA WBC (test code = 3 See_Comment [Automa rosendo message] The UA WBC) system which ge nerated this result transmit rosendo reference range : <=5. The reference range was not used to interpr et this result as josi l/abnormal. [facility] [id number] 03:33:00 Test Item Value Reference Range Interpretation Comments UA RBC (test code = 8 See_Comment [Automa rosendo message] The UA RBC) system which ge nerated this result transmit rosendo reference range : <=2. The reference range was not used to interpr et this result as josi l/abnormal. [facility] [id number] 03:33:00 Test Item Value Reference Range Interpretation Comments UA Mucus (test code = UA Mucus) Few /LPF [facility] [id number] 03:33:00 Test Item Value Reference Range Interpretation Comments UA Color (test code = Light Yellow UA Color) *NA*(01/09/22 9:33 PM) [facility] [id number] 03:33:00 Test Item Value Reference Range Interpretation Comments UA Turbidity (test code = Clear (01/09/22 9:33 UA Turbidity) PM) [facility] [id number] 03:33:00 Test Item Value Reference Range Interpretation Comments UA Spec Grav (test code = UA Spec 1.008 1 Grav) [facility] [id number] 03:33:00 Test Item Value Reference Range Interpretation Comments UA pH (test code = UA pH) 8.0 1 5.0-8.0 [facility] [id number] 03:33:00 Test Item Value Reference Range Interpretation Comments UA Protein (test code = UA Negative mg/dL Protein) [facility] [id number] 03:33:00 Test Item Value Reference Range Interpretation Comments UA Glucose (test code = UA Negative mg/dL Glucose) [facility] AND [id number] 03:33:00 Test Item Value Reference Range Interpretation Comments UA Ketones (test code = UA Negative mg/dL Ketones) [facility] AND [id number] 03:33:00 Test Item Value Reference Range Interpretation Comments UA Bili (test code = Negative *NA*(01/09/22 UA Bili) 9:33 PM) [facility] AND [id number] 03:33:00 Test Item Value Reference Range Interpretation Comments UA Blood (test code = Moderate *ABN*(01/09/22 UA Blood) 9:33 PM) [facility] AND [id number] 03:33:00 Test Item Value Reference Range Interpretation Comments UA Urobilinogen (test code = UA no gt 0.1-1.0 Urobilinogen) [facility] AND [id number] 03:33:00 Test Item Value Reference Range Interpretation Comments UA Nitrite (test code Negative (01/09/22 9:33 = UA Nitrite) PM) [facility] AND [id number] 03:33:00 Test Item Value Reference Range Interpretation Comments UA Leuk Est (test Negative (01/09/22 9:33 code = UA Leuk Est) PM) [facility] AND [id number] 03:33:00 Test Item Value Reference Range Interpretation Comments UA Sq Epi (test code = UA Sq Occasional /LPF Epi) [facility] AND [id number] 03:33:00 Test Item Value Reference Range Interpretation Comments UA WBC (test code = 3 See_Comment [Automa rosendo message] The UA WBC) system which ge nerated this result transmit rosendo reference range : <=5. The reference range was not used to interpr et this result as josi l/abnormal. [facility] AND [id number] 03:33:00 Test Item Value Reference Range Interpretation Comments UA RBC (test code = 8 See_Comment [Automa rosendo message] The UA RBC) system which ge nerated this result transmit rosendo reference range : <=2. The reference range was not used to interpr et this result as josi l/abnormal. [facility] AND [id number] 03:33:00 Test Item Value Reference Range Interpretation Comments UA Mucus (test code = UA Mucus) Few /LPF [facility] AND [id number] 03:33:00 Test Item Value Reference Range Interpretation Comments UA Color (test code = Light Yellow UA Color) *NA*(01/09/22 9:33 PM) [facility] AND [id number] 03:33:00 Test Item Value Reference Range Interpretation Comments UA Turbidity (test code = Clear (01/09/22 9:33 UA Turbidity) PM) [facility] AND [id number] 03:33:00 Test Item Value Reference Range Interpretation Comments UA Spec Grav (test code = UA Spec 1.008 1 Grav) [facility] AND [id number] 03:33:00 Test Item Value Reference Range Interpretation Comments UA pH (test code = UA pH) 8.0 1 5.0-8.0 [facility] AND [id number] 03:33:00 Test Item Value Reference Range Interpretation Comments UA Protein (test code = UA Negative mg/dL Protein) [facility] AND [id number] 03:33:00 Test Item Value Reference Range Interpretation Comments UA Glucose (test code = UA Negative mg/dL Glucose) [facility] AND [id number] 03:33:00 Test Item Value Reference Range Interpretation Comments UA Ketones (test code = UA Negative mg/dL Ketones) [facility] AND [id number] 03:33:00 Test Item Value Reference Range Interpretation Comments UA Bili (test code = Negative *NA*(01/09/22 UA Bili) 9:33 PM) [facility] AND [id number] 03:33:00 Test Item Value Reference Range Interpretation Comments UA Blood (test code = Moderate *ABN*(01/09/22 UA Blood) 9:33 PM) [facility] AND [id number] 03:33:00 Test Item Value Reference Range Interpretation Comments UA Urobilinogen (test code = UA no gt 0.1-1.0 Urobilinogen) [facility] AND [id number] 03:33:00 Test Item Value Reference Range Interpretation Comments UA Nitrite (test code Negative (01/09/22 9:33 = UA Nitrite) PM) [facility] [id number] 03:33:00 Test Item Value Reference Range Interpretation Comments UA Leuk Est (test Negative (01/09/22 9:33 code = UA Leuk Est) PM) [facility] [id number] 03:33:00 Test Item Value Reference Range Interpretation Comments UA Sq Epi (test code = UA Sq Occasional /LPF Epi) [facility] AND [id number] 03:33:00 Test Item Value Reference Range Interpretation Comments UA WBC (test code = 3 See_Comment [Automa rosendo message] The UA WBC) system which ge nerated this result transmit rosendo reference range : <=5. The reference range was not used to interpr et this result as josi l/abnormal. [facility] [id number] 03:33:00 Test Item Value Reference Range Interpretation Comments UA RBC (test code = 8 See_Comment [Automa rosendo message] The UA RBC) system which ge nerated this result transmit rosendo reference range : <=2. The reference range was not used to interpr et this result as josi l/abnormal. [facility] [id number] 03:33:00 Test Item Value Reference Range Interpretation Comments UA Mucus (test code = UA Mucus) Few /LPF [facility] AND [id number] 03:33:00 Test Item Value Reference Range Interpretation Comments UA Color (test code = Light Yellow UA Color) *NA*(01/09/22 9:33 PM) [facility] AND [id number] 03:33:00 Test Item Value Reference Range Interpretation Comments UA Turbidity (test code = Clear (01/09/22 9:33 UA Turbidity) PM) [facility] AND [id number] 03:33:00 Test Item Value Reference Range Interpretation Comments UA Spec Grav (test code = UA Spec 1.008 1 Grav) [facility] AND [id number] 03:33:00 Test Item Value Reference Range Interpretation Comments UA pH (test code = UA pH) 8.0 1 5.0-8.0 [facility] AND [id number] 03:33:00 Test Item Value Reference Range Interpretation Comments UA Protein (test code = UA Negative mg/dL Protein) [facility] AND [id number] 03:33:00 Test Item Value Reference Range Interpretation Comments UA Glucose (test code = UA Negative mg/dL Glucose) [facility] AND [id number] 03:33:00 Test Item Value Reference Range Interpretation Comments UA Ketones (test code = UA Negative mg/dL Ketones) [facility] AND [id number] 03:33:00 Test Item Value Reference Range Interpretation Comments UA Bili (test code = Negative *NA*(01/09/22 UA Bili) 9:33 PM) [facility] AND [id number] 03:33:00 Test Item Value Reference Range Interpretation Comments UA Blood (test code = Moderate *ABN*(01/09/22 UA Blood) 9:33 PM) [facility] AND [id number] 03:33:00 Test Item Value Reference Range Interpretation Comments UA Urobilinogen (test code = UA no gt 0.1-1.0 Urobilinogen) [facility] AND [id number] 03:33:00 Test Item Value Reference Range Interpretation Comments UA Nitrite (test code Negative (01/09/22 9:33 = UA Nitrite) PM) [facility] AND [id number] 03:33:00 Test Item Value Reference Range Interpretation Comments UA Leuk Est (test Negative (01/09/22 9:33 code = UA Leuk Est) PM) [facility] AND [id number] 03:33:00 Test Item Value Reference Range Interpretation Comments UA Sq Epi (test code = UA Sq Occasional /LPF Epi) [facility] AND [id number] 03:33:00 Test Item Value Reference Range Interpretation Comments UA WBC (test code = 3 See_Comment [Automa rosendo message] The UA WBC) system which ge nerated this result transmit rosendo reference range : <=5. The reference range was not used to interpr et this result as josi l/abnormal. [facility] AND [id number] 03:33:00 Test Item Value Reference Range Interpretation Comments UA RBC (test code = 8 See_Comment [Automa rosendo message] The UA RBC) system which ge nerated this result transmit rosendo reference range : <=2. The reference range was not used to interpr et this result as josi l/abnormal. [facility] AND [id number] 03:33:00 Test Item Value Reference Range Interpretation Comments UA Mucus (test code = UA Mucus) Few /LPF [facility] AND [id number] 03:33:00 Test Item Value Reference Range Interpretation Comments UA Color (test code = Light Yellow UA Color) *NA*(01/09/22 9:33 PM) [facility] AND [id number] 03:33:00 Test Item Value Reference Range Interpretation Comments UA Turbidity (test code = Clear (01/09/22 9:33 UA Turbidity) PM) [facility] AND [id number] 03:33:00 Test Item Value Reference Range Interpretation Comments UA Spec Grav (test code = UA Spec 1.008 1 Grav) [facility] AND [id number] 03:33:00 Test Item Value Reference Range Interpretation Comments UA pH (test code = UA pH) 8.0 1 5.0-8.0 [facility] AND [id number] 03:33:00 Test Item Value Reference Range Interpretation Comments UA Protein (test code = UA Negative mg/dL Protein) [facility] AND [id number] 03:33:00 Test Item Value Reference Range Interpretation Comments UA Glucose (test code = UA Negative mg/dL Glucose) [facility] AND [id number] 03:33:00 Test Item Value Reference Range Interpretation Comments UA Ketones (test code = UA Negative mg/dL Ketones) [facility] AND [id number] 03:33:00 Test Item Value Reference Range Interpretation Comments UA Bili (test code = Negative *NA*(01/09/22 UA Bili) 9:33 PM) [facility] AND [id number] 03:33:00 Test Item Value Reference Range Interpretation Comments UA Blood (test code = Moderate *ABN*(01/09/22 UA Blood) 9:33 PM) [facility] AND [id number] 03:33:00 Test Item Value Reference Range Interpretation Comments UA Urobilinogen (test code = UA no gt 0.1-1.0 Urobilinogen) [facility] AND [id number] 03:33:00 Test Item Value Reference Range Interpretation Comments UA Nitrite (test code Negative (01/09/22 9:33 = UA Nitrite) PM) [facility] AND [id number] 03:33:00 Test Item Value Reference Range Interpretation Comments UA Leuk Est (test Negative (01/09/22 9:33 code = UA Leuk Est) PM) [facility] [id number] 03:33:00 Test Item Value Reference Range Interpretation Comments UA Sq Epi (test code = UA Sq Occasional /LPF Epi) [facility] AND [id number] 03:33:00 Test Item Value Reference Range Interpretation Comments UA WBC (test code = 3 See_Comment [Automa rosendo message] The UA WBC) system which ge nerated this result transmit rosendo reference range : <=5. The reference range was not used to interpr et this result as josi l/abnormal. [facility] [id number] 03:33:00 Test Item Value Reference Range Interpretation Comments UA RBC (test code = 8 See_Comment [Automa rosendo message] The UA RBC) system which ge nerated this result transmit rosendo reference range : <=2. The reference range was not used to interpr et this result as josi l/abnormal. [facility] AND [id number] 03:33:00 Test Item Value Reference Range Interpretation Comments UA Mucus (test code = UA Mucus) Few /LPF [facility] AND [id number] 03:33:00 Test Item Value Reference Range Interpretation Comments UA Color (test code = Light Yellow UA Color) *NA*(01/09/22 9:33 PM) [facility] AND [id number] 03:33:00 Test Item Value Reference Range Interpretation Comments UA Turbidity (test code = Clear (01/09/22 9:33 UA Turbidity) PM) [facility] AND [id number] 03:33:00 Test Item Value Reference Range Interpretation Comments UA Spec Grav (test code = UA Spec 1.008 1 Grav) [facility] AND [id number] 03:33:00 Test Item Value Reference Range Interpretation Comments UA pH (test code = UA pH) 8.0 1 5.0-8.0 [facility] AND [id number] 03:33:00 Test Item Value Reference Range Interpretation Comments UA Protein (test code = UA Negative mg/dL Protein) [facility] AND [id number] 03:33:00 Test Item Value Reference Range Interpretation Comments UA Glucose (test code = UA Negative mg/dL Glucose) [facility] AND [id number] 03:33:00 Test Item Value Reference Range Interpretation Comments UA Ketones (test code = UA Negative mg/dL Ketones) [facility] AND [id number] 03:33:00 Test Item Value Reference Range Interpretation Comments UA Bili (test code = Negative *NA*(01/09/22 UA Bili) 9:33 PM) [facility] AND [id number] 03:33:00 Test Item Value Reference Range Interpretation Comments UA Blood (test code = Moderate *ABN*(01/09/22 UA Blood) 9:33 PM) [facility] AND [id number] 03:33:00 Test Item Value Reference Range Interpretation Comments UA Urobilinogen (test code = UA no gt 0.1-1.0 Urobilinogen) [facility] AND [id number] 03:33:00 Test Item Value Reference Range Interpretation Comments UA Nitrite (test code Negative (01/09/22 9:33 = UA Nitrite) PM) [facility] AND [id number] 03:33:00 Test Item Value Reference Range Interpretation Comments UA Leuk Est (test Negative (01/09/22 9:33 code = UA Leuk Est) PM) [facility] AND [id number] 03:33:00 Test Item Value Reference Range Interpretation Comments UA Sq Epi (test code = UA Sq Occasional /LPF Epi) [facility] AND [id number] 03:33:00 Test Item Value Reference Range Interpretation Comments UA WBC (test code = 3 See_Comment [Automa rosendo message] The UA WBC) system which ge nerated this result transmit rosendo reference range : <=5. The reference range was not used to interpr et this result as josi l/abnormal. [facility] AND [id number] 03:33:00 Test Item Value Reference Range Interpretation Comments UA RBC (test code = 8 See_Comment [Automa rosendo message] The UA RBC) system which ge nerated this result transmit rosendo reference range : <=2. The reference range was not used to interpr et this result as josi l/abnormal. [facility] AND [id number] 03:33:00 Test Item Value Reference Range Interpretation Comments UA Mucus (test code = UA Mucus) Few /LPF [facility] AND [id number] 03:33:00 Test Item Value Reference Range Interpretation Comments UA Color (test code = Light Yellow UA Color) *NA*(01/09/22 9:33 PM) [facility] AND [id number] 03:33:00 Test Item Value Reference Range Interpretation Comments UA Turbidity (test code = Clear (01/09/22 9:33 UA Turbidity) PM) [facility] AND [id number] 03:33:00 Test Item Value Reference Range Interpretation Comments UA Spec Grav (test code = UA Spec 1.008 1 Grav) [facility] AND [id number] 03:33:00 Test Item Value Reference Range Interpretation Comments UA pH (test code = UA pH) 8.0 1 5.0-8.0 [facility] AND [id number] 03:33:00 Test Item Value Reference Range Interpretation Comments UA Protein (test code = UA Negative mg/dL Protein) [facility] AND [id number] 03:33:00 Test Item Value Reference Range Interpretation Comments UA Glucose (test code = UA Negative mg/dL Glucose) [facility] AND [id number] 03:33:00 Test Item Value Reference Range Interpretation Comments UA Ketones (test code = UA Negative mg/dL Ketones) [facility] AND [id number] 03:33:00 Test Item Value Reference Range Interpretation Comments UA Bili (test code = Negative *NA*(01/09/22 UA Bili) 9:33 PM) [facility] AND [id number] 03:33:00 Test Item Value Reference Range Interpretation Comments UA Blood (test code = Moderate *ABN*(01/09/22 UA Blood) 9:33 PM) [facility] AND [id number] 03:33:00 Test Item Value Reference Range Interpretation Comments UA Urobilinogen (test code = UA no gt 0.1-1.0 Urobilinogen) [facility] AND [id number] 03:33:00 Test Item Value Reference Range Interpretation Comments UA Nitrite (test code Negative (01/09/22 9:33 = UA Nitrite) PM) [facility] [id number] 03:33:00 Test Item Value Reference Range Interpretation Comments UA Leuk Est (test Negative (01/09/22 9:33 code = UA Leuk Est) PM) [facility] [id number] 03:33:00 Test Item Value Reference Range Interpretation Comments UA Sq Epi (test code = UA Sq Occasional /LPF Epi) [facility] AND [id number] 03:33:00 Test Item Value Reference Range Interpretation Comments UA WBC (test code = 3 See_Comment [Automa rosendo message] The UA WBC) system which ge nerated this result transmit rosendo reference range : <=5. The reference range was not used to interpr et this result as josi l/abnormal. [facility] [id number] 03:33:00 Test Item Value Reference Range Interpretation Comments UA RBC (test code = 8 See_Comment [Automa rosendo message] The UA RBC) system which ge nerated this result transmit rosendo reference range : <=2. The reference range was not used to interpr et this result as josi l/abnormal. [facility] [id number] 03:33:00 Test Item Value Reference Range Interpretation Comments UA Mucus (test code = UA Mucus) Few /LPF [facility] AND [id number] 03:33:00 Test Item Value Reference Range Interpretation Comments UA Color (test code = Light Yellow UA Color) *NA*(01/09/22 9:33 PM) [facility] AND [id number] 03:33:00 Test Item Value Reference Range Interpretation Comments UA Turbidity (test code = Clear (01/09/22 9:33 UA Turbidity) PM) [facility] AND [id number] 03:33:00 Test Item Value Reference Range Interpretation Comments UA Spec Grav (test code = UA Spec 1.008 1 Grav) [facility] AND [id number] 03:33:00 Test Item Value Reference Range Interpretation Comments UA pH (test code = UA pH) 8.0 1 5.0-8.0 [facility] AND [id number] 03:33:00 Test Item Value Reference Range Interpretation Comments UA Protein (test code = UA Negative mg/dL Protein) [facility] AND [id number] 03:33:00 Test Item Value Reference Range Interpretation Comments UA Glucose (test code = UA Negative mg/dL Glucose) [facility] AND [id number] 03:33:00 Test Item Value Reference Range Interpretation Comments UA Ketones (test code = UA Negative mg/dL Ketones) [facility] AND [id number] 03:33:00 Test Item Value Reference Range Interpretation Comments UA Bili (test code = Negative *NA*(01/09/22 UA Bili) 9:33 PM) [facility] AND [id number] 03:33:00 Test Item Value Reference Range Interpretation Comments UA Blood (test code = Moderate *ABN*(01/09/22 UA Blood) 9:33 PM) [facility] AND [id number] 03:33:00 Test Item Value Reference Range Interpretation Comments UA Urobilinogen (test code = UA no gt 0.1-1.0 Urobilinogen) [facility] AND [id number] 03:33:00 Test Item Value Reference Range Interpretation Comments UA Nitrite (test code Negative (01/09/22 9:33 = UA Nitrite) PM) [facility] AND [id number] 03:33:00 Test Item Value Reference Range Interpretation Comments UA Leuk Est (test Negative (01/09/22 9:33 code = UA Leuk Est) PM) [facility] AND [id number] 03:33:00 Test Item Value Reference Range Interpretation Comments UA Sq Epi (test code = UA Sq Occasional /LPF Epi) [facility] AND [id number] 03:33:00 Test Item Value Reference Range Interpretation Comments UA WBC (test code = 3 See_Comment [Automa rosendo message] The UA WBC) system which ge nerated this result transmit rosendo reference range : <=5. The reference range was not used to interpr et this result as josi l/abnormal. [facility] AND [id number] 03:33:00 Test Item Value Reference Range Interpretation Comments UA RBC (test code = 8 See_Comment [Automa rosendo message] The UA RBC) system which ge nerated this result transmit rosendo reference range : <=2. The reference range was not used to interpr et this result as josi l/abnormal. [facility] AND [id number] 03:33:00 Test Item Value Reference Range Interpretation Comments UA Mucus (test code = UA Mucus) Few /LPF [facility] AND [id number] 03:33:00 Test Item Value Reference Range Interpretation Comments UA Color (test code = Light Yellow UA Color) *NA*(01/09/22 9:33 PM) [facility] AND [id number] 03:33:00 Test Item Value Reference Range Interpretation Comments UA Turbidity (test code = Clear (01/09/22 9:33 UA Turbidity) PM) [facility] AND [id number] 03:33:00 Test Item Value Reference Range Interpretation Comments UA Spec Grav (test code = UA Spec 1.008 1 Grav) [facility] AND [id number] 03:33:00 Test Item Value Reference Range Interpretation Comments UA pH (test code = UA pH) 8.0 1 5.0-8.0 [facility] AND [id number] 03:33:00 Test Item Value Reference Range Interpretation Comments UA Protein (test code = UA Negative mg/dL Protein) [facility] AND [id number] 03:33:00 Test Item Value Reference Range Interpretation Comments UA Glucose (test code = UA Negative mg/dL Glucose) [facility] AND [id number] 03:33:00 Test Item Value Reference Range Interpretation Comments UA Ketones (test code = UA Negative mg/dL Ketones) [facility] AND [id number] 03:33:00 Test Item Value Reference Range Interpretation Comments UA Bili (test code = Negative *NA*(01/09/22 UA Bili) 9:33 PM) [facility] AND [id number] 03:33:00 Test Item Value Reference Range Interpretation Comments UA Blood (test code = Moderate *ABN*(01/09/22 UA Blood) 9:33 PM) [facility] AND [id number] 03:33:00 Test Item Value Reference Range Interpretation Comments UA Urobilinogen (test code = UA no gt 0.1-1.0 [facility]ilinogen) [facility] [id number] 03:33:00 Test Item Value Reference Range Interpretation Comments UA Nitrite (test code Negative (01/09/22 9:33 = UA Nitrite) PM) [facility] [id number] 03:33:00 Test Item Value Reference Range Interpretation Comments UA Leuk Est (test Negative (01/09/22 9:33 code = UA Leuk Est) PM) [facility] [id number] 03:33:00 Test Item Value Reference Range Interpretation Comments UA Sq Epi (test code = UA Sq Occasional /LPF Epi) [facility] [id number] 03:33:00 Test Item Value Reference Range Interpretation Comments UA WBC (test code = 3 See_Comment [Automa rosendo message] The UA WBC) system which ge nerated this result transmit rosendo reference range : <=5. The reference range was not used to interpr et this result as josi l/abnormal. [facility] [id number] 03:33:00 Test Item Value Reference Range Interpretation Comments UA RBC (test code = 8 See_Comment [Automa rosendo message] The UA RBC) system which ge nerated this result transmit rosendo reference range : <=2. The reference range was not used to interpr et this result as josi l/abnormal. [facility] [id number] 03:33:00 Test Item Value Reference Range Interpretation Comments UA Mucus (test code = UA Mucus) Few /LPF [facility] [id number] 17:03:00 Test Item Value Reference Range Interpretation Comments C difficile DNA (test Negative (01/09/22 11:03 code = C difficile DNA) AM) [id number] 17:03:00 Test Item Value Reference Range Interpretation Comments C difficile DNA (test Negative (01/09/22 11:03 code = C difficile DNA) AM) [facility] [id number] 17:03:00 Test Item Value Reference Range Interpretation Comments C difficile DNA (test Negative (01/09/22 11:03 code = C difficile DNA) AM) [facility] [id number] 17:03:00 Test Item Value Reference Range Interpretation Comments C difficile DNA (test Negative (01/09/22 11:03 code = C difficile DNA) AM) [facility] [id number] 17:03:00 Test Item Value Reference Range Interpretation Comments C difficile DNA (test Negative (01/09/22 11:03 code = C difficile DNA) AM) [facility] [id number] 17:03:00 Test Item Value Reference Range Interpretation Comments C difficile DNA (test Negative (01/09/22 11:03 code = C difficile DNA) AM) [facility] [id number] 17:03:00 Test Item Value Reference Range Interpretation Comments C difficile DNA (test Negative (01/09/22 11:03 code = C difficile DNA) AM) [facility] [id number] 17:03:00 Test Item Value Reference Range Interpretation Comments C difficile DNA (test Negative (01/09/22 11:03 code = C difficile DNA) AM) [facility] [id number] 17:03:00 Test Item Value Reference Range Interpretation Comments C difficile DNA (test Negative (01/09/22 11:03 code = C difficile DNA) AM) [facility] [id number] 17:03:00 Test Item Value Reference Range Interpretation Comments C difficile DNA (test Negative (01/09/22 11:03 code = C difficile DNA) AM) [facility] [id number] 17:03:00 Test Item Value Reference Range Interpretation Comments C difficile DNA (test Negative (01/09/22 11:03 code = C difficile DNA) AM) [facility] [id number] 17:03:00 Test Item Value Reference Range Interpretation Comments C difficile DNA (test Negative (01/09/22 11:03 code = C difficile DNA) AM) [id number] 15:11:00 Test Item Value Reference Range Interpretation Comments Hgb (test code = Hgb) 7.9 12.0-16.0 [id number] 15:11:00 Test Item Value Reference Range Interpretation Comments Hct (test code = Hct) 23.6 36.0-48.0 [place] [address]-03-01 15:11:00 Test Item Value Reference Range Interpretation Comments Hgb (test code = Hgb) 7.9 12.0-16.0 [place] [address]-03-01 15:11:00 Test Item Value Reference Range Interpretation Comments Hct (test code = Hct) 23.6 36.0-48.0 [place] [address]-03-01 15:11:00 Test Item Value Reference Range Interpretation Comments Hgb (test code = Hgb) 7.9 12.0-16.0 [place] [address]-03-01 15:11:00 Test Item Value Reference Range Interpretation Comments Hct (test code = Hct) 23.6 36.0-48.0 [place] [address]-03-01 15:11:00 Test Item Value Reference Range Interpretation Comments Hgb (test code = Hgb) 7.9 12.0-16.0 [place] [address]-03-01 15:11:00 Test Item Value Reference Range Interpretation Comments Hct (test code = Hct) 23.6 36.0-48.0 [facility] [id number] 15:11:00 Test Item Value Reference Range Interpretation Comments Hgb (test code = Hgb) 7.9 12.0-16.0 [place] [address]-03-01 15:11:00 Test Item Value Reference Range Interpretation Comments Hct (test code = Hct) 23.6 36.0-48.0 [place] [address]-03-01 15:11:00 Test Item Value Reference Range Interpretation Comments Hgb (test code = Hgb) 7.9 12.0-16.0 [place] [address]-03-01 15:11:00 Test Item Value Reference Range Interpretation Comments Hct (test code = Hct) 23.6 36.0-48.0 [place] [address]-03-01 15:11:00 Test Item Value Reference Range Interpretation Comments Hgb (test code = Hgb) 7.9 12.0-16.0 [place] [address]-03-01 15:11:00 Test Item Value Reference Range Interpretation Comments Hct (test code = Hct) 23.6 36.0-48.0 [facility] [id number] 15:11:00 Test Item Value Reference Range Interpretation Comments Hgb (test code = Hgb) 7.9 12.0-16.0 [place] 519362-03-01 15:11:00 Test Item Value Reference Range Interpretation Comments Hct (test code = Hct) 23.6 36.0-48.0 [place] 519362-03-01 15:11:00 Test Item Value Reference Range Interpretation Comments Hgb (test code = Hgb) 7.9 12.0-16.0 [place] 519362-03-01 15:11:00 Test Item Value Reference Range Interpretation Comments Hct (test code = Hct) 23.6 36.0-48.0 [place] 519362-03-01 15:11:00 Test Item Value Reference Range Interpretation Comments Hgb (test code = Hgb) 7.9 12.0-16.0 [facility] [id number] 15:11:00 Test Item Value Reference Range Interpretation Comments Hct (test code = Hct) 23.6 36.0-48.0 [facility] C[id number] 15:11:00 Test Item Value Reference Range Interpretation Comments Hgb (test code = Hgb) 7.9 12.0-16.0 [place] 519362-03-01 15:11:00 Test Item Value Reference Range Interpretation Comments Hct (test code = Hct) 23.6 36.0-48.0 [facility] CenterZdbpxugYAJWJSYJZQ4911-92-58 15:11:00 Test Item Value Reference Range Interpretation Comments Hgb (test code = Hgb) 7.9 12.0-16.0 [place] 519362-03-01 15:11:00 Test Item Value Reference Range Interpretation Comments Hct (test code = Hct) 23.6 36.0-48.0 [facility]2022-03-01 08:07:00 Test Item Value Reference Range Interpretation Comments Procalcitonin Lvl (test 0.16 See_Comment [Au tomated message] code = Procalcitonin Lvl) Th e system which generated this result transmitted ref erence range: <=0.10. The reference range was not used to interpr et this result as normal/abnormal . [facility]2022-03-01 08:07:00 Test Item Value Reference Range Interpretation Comments Lactic Acid Lvl (test code = Lactic 1.1 0.5-2.2 Acid Lvl) [place] 519362-03-01 08:07:00 Test Item Value Reference Range Interpretation Comments WBC (test code = WBC) 5.3 3.7-10.4 [place] 519362-03-01 08:07:00 Test Item Value Reference Range Interpretation Comments RBC (test code = RBC) 2.29 4.20-5.40 [place] 519362-03-01 08:07:00 Test Item Value Reference Range Interpretation Comments Hgb (test code = Hgb) 7.4 12.0-16.0 [place] [address]-03-01 08:07:00 Test Item Value Reference Range Interpretation Comments Hct (test code = Hct) 21.5 36.0-48.0 [place] [address]-03-01 08:07:00 Test Item Value Reference Range Interpretation Comments MCV (test code = MCV) 94.1 80.0-98.0 [place] [address]-03-01 08:07:00 Test Item Value Reference Range Interpretation Comments MCH (test code = MCH) 32.3 pg 27.0-31.0 [place] [address]-03-01 08:07:00 Test Item Value Reference Range Interpretation Comments MCHC (test code = MCHC) 34.3 32.0-36.0 [place] [address]-03-01 08:07:00 Test Item Value Reference Range Interpretation Comments RDW (test code = RDW) 16.1 11.5-14.5 [place] [address]-03-01 08:07:00 Test Item Value Reference Range Interpretation Comments Platelet (test code = Platelet) 354 133-450 [place] 519362-03-01 08:07:00 Test Item Value Reference Range Interpretation Comments MPV (test code = MPV) 7.0 7.4-10.4 [place] [address]-03-01 08:07:00 Test Item Value Reference Range Interpretation Comments Segs (test code = Segs) 58.8 45.0-75.0 [place] 519362-03-01 08:07:00 Test Item Value Reference Range Interpretation Comments Lymphocytes (test code = Lymphocytes) 16.9 20.0-40.0 [facility]SmdjqheUZTJGWCVPG7588-17-01 08:07:00 Test Item Value Reference Range Interpretation Comments Monocytes (test code = Monocytes) 17.8 2.0-12.0 [facility] CenterGpkaaeyDPUIGVIBQD9068-58-26 08:07:00 Test Item Value Reference Range Interpretation Comments Eosinophils (test code = 5.4 See_Comment [A utomated message] The Eosinophils) system which ge nerated this result tra nsmitted reference range : <=4.0. The reference r patria was not used to int erpret this result as normal/abnormal . [facility] CenterQrezqqhYLUYCISVPL6810-28-50 08:07:00 Test Item Value Reference Range Interpretation Comments Basophils (test code = 1.1 See_Comment [Aut omated message] The Basophils) system which ge nerated this result tra nsmitted reference range : <=1.0. The reference r patria was not used to int erpret this result as normal/abnormal . [facility] CenterWmbetvgYWAFKQEIPI6905-53-32 08:07:00 Test Item Value Reference Range Interpretation Comments Neutrophils # (test code = Neutrophils 3.1 1.5-8.1 #) [facility] CenterXejcpefBWHPAQKGWN4835-18-37 08:07:00 Test Item Value Reference Range Interpretation Comments Lymphocytes # (test code = Lymphocytes 0.9 1.0-5.5 #) [facility] CenterSzudsgpZONEXXQNSW7544-87-80 08:07:00 Test Item Value Reference Range Interpretation Comments Monocytes # (test code 0.9 See_Comment [Aut omated message] The = Monocytes #) system which generated this result tra nsmitted reference range : <=0.8. The reference r patria was not used to int erpret this result as normal/abnormal . [facility] CenterSltzzpeXAFMATZUIN8144-84-88 08:07:00 Test Item Value Reference Range Interpretation Comments Eosinophils # (test code 0.3 See_Comment [A utomated message] The = Eosinophils #) system whic h generated this result tra nsmitted reference range : <=0.5. The reference r patria was not used to int erpret this result as normal/abnormal . [place] 519362-03-01 08:07:00 Test Item Value Reference Range Interpretation Comments Basophils # (test code 0.1 See_Comment [Aut omated message] The = Basophils #) system which generated this result tra nsmitted reference range : <=0.2. The reference r patria was not used to int erpret this result as normal/abnormal . [facility] [employer] [id number] 08:07:00 Test Item Value Reference Range Interpretation Comments Procalcitonin Lvl (test 0.16 See_Comment [Au tomated message] code = Procalcitonin Lvl) Th e system which generated this result transmitted ref erence range: <=0.10. The reference range was not used to interpr et this result as normal/abnormal . [facility] [id number] 08:07:00 Test Item Value Reference Range Interpretation Comments Lactic Acid Lvl (test code = Lactic 1.1 0.5-2.2 Acid Lvl) [facility]biCTMOYWWXBQ8460[facility] 08:07:00 Test Item Value Reference Range Interpretation Comments WBC (test code = WBC) 5.3 3.7-10.4 [facility] ResourcesZvyvnzrFVZCHTQFXJ9475-63-57 08:07:00 Test Item Value Reference Range Interpretation Comments RBC (test code = RBC) 2.29 4.20-5.40 [facility] ResourcesXzrapwvOHLHKLZZTM5740-55-02 08:07:00 Test Item Value Reference Range Interpretation Comments Hgb (test code = Hgb) 7.4 12.0-16.0 [facility] ResourcesNkfeqeqPOHIVBURLL5241-18-13 08:07:00 Test Item Value Reference Range Interpretation Comments Hct (test code = Hct) 21.5 36.0-48.0 [facility] ResourcesRkaklxdIHWDJHTNFO0830-21-33 08:07:00 Test Item Value Reference Range Interpretation Comments MCV (test code = MCV) 94.1 80.0-98.0 [facility] ResourcesCiejydyLGEOCLFJLS5536-55-02 08:07:00 Test Item Value Reference Range Interpretation Comments MCH (test code = MCH) 32.3 pg 27.0-31.0 [facility] ResourcesKmjltlxRTPZFHVDLL8455-82-52 08:07:00 Test Item Value Reference Range Interpretation Comments MCHC (test code = MCHC) 34.3 32.0-36.0 [place] 519362-03-01 08:07:00 Test Item Value Reference Range Interpretation Comments RDW (test code = RDW) 16.1 11.5-14.5 [place] 519362-03-01 08:07:00 Test Item Value Reference Range Interpretation Comments Platelet (test code = Platelet) 354 133-450 [place] 519362-03-01 08:07:00 Test Item Value Reference Range Interpretation Comments MPV (test code = MPV) 7.0 7.4-10.4 [place] 519362-03-01 08:07:00 Test Item Value Reference Range Interpretation Comments Segs (test code = Segs) 58.8 45.0-75.0 [place] [address]-03-01 08:07:00 Test Item Value Reference Range Interpretation Comments Lymphocytes (test code = Lymphocytes) 16.9 20.0-40.0 [place] [address]-03-01 08:07:00 Test Item Value Reference Range Interpretation Comments Monocytes (test code = Monocytes) 17.8 2.0-12.0 [place] 519362-03-01 08:07:00 Test Item Value Reference Range Interpretation Comments Eosinophils (test code = 5.4 See_Comment [A utomated message] The Eosinophils) system which ge nerated this result tra nsmitted reference range : <=4.0. The reference r patria was not used to int erpret this result as normal/abnormal . [place]362-03-01 08:07:00 Test Item Value Reference Range Interpretation Comments Basophils (test code = 1.1 See_Comment [Aut omated message] The Basophils) system which ge nerated this result tra nsmitted reference range : <=1.0. The reference r patria was not used to int erpret this result as normal/abnormal . [place]362-03-01 08:07:00 Test Item Value Reference Range Interpretation Comments Neutrophils # (test code = Neutrophils 3.1 1.5-8.1 #) [place]362-03-01 08:07:00 Test Item Value Reference Range Interpretation Comments Lymphocytes # (test code = Lymphocytes 0.9 1.0-5.5 #) [place]362-03-01 08:07:00 Test Item Value Reference Range Interpretation Comments Monocytes # (test code 0.9 See_Comment [Aut omated message] The = Monocytes #) system which generated this result tra nsmitted reference range : <=0.8. The reference r patria was not used to int erpret this result as normal/abnormal . [place]362-03-01 08:07:00 Test Item Value Reference Range Interpretation Comments Eosinophils # (test code 0.3 See_Comment [A utomated message] The = Eosinophils #) system whic h generated this result tra nsmitted reference range : <=0.5. The reference r patria was not used to int erpret this result as normal/abnormal . [facility]OhmzebfJZUJURZKBV0286-47-68 08:07:00 Test Item Value Reference Range Interpretation Comments Basophils # (test code 0.1 See_Comment [Aut omated message] The = Basophils #) system which generated this result tra nsmitted reference range : <=0.2. The reference r patria was not used to int erpret this result as normal/abnormal . [facility] [id number] 08:07:00 Test Item Value Reference Range Interpretation Comments Procalcitonin Lvl (test 0.16 See_Comment [Au tomated message] code = Procalcitonin Lvl) Th e system which generated this result transmitted ref erence range: <=0.10. The reference range was not used to interpr et this result as normal/abnormal . [facility] [id number] 08:07:00 Test Item Value Reference Range Interpretation Comments Lactic Acid Lvl (test code = Lactic 1.1 0.5-2.2 Acid Lvl) [place]362-03-01 08:07:00 Test Item Value Reference Range Interpretation Comments WBC (test code = WBC) 5.3 3.7-10.4 [place] [address]-03-01 08:07:00 Test Item Value Reference Range Interpretation Comments RBC (test code = RBC) 2.29 4.20-5.40 [place] [address]-03-01 08:07:00 Test Item Value Reference Range Interpretation Comments Hgb (test code = Hgb) 7.4 12.0-16.0 [place] [place] [address]-03-01 08:07:00 Test Item Value Reference Range Interpretation Comments Hct (test code = Hct) 21.5 36.0-48.0 [place] 519362-03-01 08:07:00 Test Item Value Reference Range Interpretation Comments MCV (test code = MCV) 94.1 80.0-98.0 [place] 519362-03-01 08:07:00 Test Item Value Reference Range Interpretation Comments MCH (test code = MCH) 32.3 pg 27.0-31.0 [place] 519362-03-01 08:07:00 Test Item Value Reference Range Interpretation Comments MCHC (test code = MCHC) 34.3 32.0-36.0 [place]362-03-01 08:07:00 Test Item Value Reference Range Interpretation Comments RDW (test code = RDW) 16.1 11.5-14.5 [place] 519362-03-01 08:07:00 Test Item Value Reference Range Interpretation Comments Platelet (test code = Platelet) 354 133-450 [facility]UM[facility] 08:07:00 Test Item Value Reference Range Interpretation Comments MPV (test code = MPV) 7.0 7.4-10.4 [place] 519362-03-01 08:07:00 Test Item Value Reference Range Interpretation Comments Segs (test code = Segs) 58.8 45.0-75.0 [place]362-03-01 08:07:00 Test Item Value Reference Range Interpretation Comments Lymphocytes (test code = Lymphocytes) 16.9 20.0-40.0 [place]362-03-01 08:07:00 Test Item Value Reference Range Interpretation Comments Monocytes (test code = Monocytes) 17.8 2.0-12.0 [place] [address]-03-01 08:07:00 Test Item Value Reference Range Interpretation Comments Eosinophils (test code = 5.4 See_Comment [A utomated message] The Eosinophils) system which ge nerated this result tra nsmitted reference range : <=4.0. The reference r patria was not used to int erpret this result as normal/abnormal . [place] 519362-03-01 08:07:00 Test Item Value Reference Range Interpretation Comments Basophils (test code = 1.1 See_Comment [Aut omated message] The Basophils) system which ge nerated this result tra nsmitted reference range : <=1.0. The reference r patria was not used to int erpret this result as normal/abnormal . [facility]mxuxhqKQGPVEOWXR7002-83-81 08:07:00 Test Item Value Reference Range Interpretation Comments Neutrophils # (test code = Neutrophils 3.1 1.5-8.1 #) [facility]yzsumzTITUWSROGV5346-58-04 08:07:00 Test Item Value Reference Range Interpretation Comments Lymphocytes # (test code = Lymphocytes 0.9 1.0-5.5 #) [place] 519362-03-01 08:07:00 Test Item Value Reference Range Interpretation Comments Monocytes # (test code 0.9 See_Comment [Aut omated message] The = Monocytes #) system which generated this result tra nsmitted reference range : <=0.8. The reference r patria was not used to int erpret this result as normal/abnormal . [facility]VbvjzpvYKQCXBDAWT5858-06-80 08:07:00 Test Item Value Reference Range Interpretation Comments Eosinophils # (test code 0.3 See_Comment [A utomated message] The = Eosinophils #) system whic h generated this result tra nsmitted reference range : <=0.5. The reference r patria was not used to int erpret this result as normal/abnormal . [facility] HospitalKaumymoXEKKDROPTH6837-01-64 08:07:00 Test Item Value Reference Range Interpretation Comments Basophils # (test code 0.1 See_Comment [Aut omated message] The = Basophils #) system which generated this result tra nsmitted reference range : <=0.2. The reference r patria was not used to int erpret this result as normal/abnormal . [facility] R[id number] 08:07:00 Test Item Value Reference Range Interpretation Comments Procalcitonin Lvl (test 0.16 See_Comment [Au tomated message] code = Procalcitonin Lvl) Th e system which generated this result transmitted ref erence range: <=0.10. The reference range was not used to interpr et this result as normal/abnormal . [facility] ResourcesAboutUs[facility] [id number] 08:07:00 Test Item Value Reference Range Interpretation Comments Lactic Acid Lvl (test code = Lactic 1.1 0.5-2.2 Acid Lvl) [place] [address]-03-01 08:07:00 Test Item Value Reference Range Interpretation Comments WBC (test code = WBC) 5.3 3.7-10.4 [place] 519362-03-01 08:07:00 Test Item Value Reference Range Interpretation Comments RBC (test code = RBC) 2.29 4.20-5.40 [place] [address]-03-01 08:07:00 Test Item Value Reference Range Interpretation Comments Hgb (test code = Hgb) 7.4 12.0-16.0 [place] [address]-03-01 08:07:00 Test Item Value Reference Range Interpretation Comments Hct (test code = Hct) 21.5 36.0-48.0 [place] [address]-03-01 08:07:00 Test Item Value Reference Range Interpretation Comments MCV (test code = MCV) 94.1 80.0-98.0 [place] [address]-03-01 08:07:00 Test Item Value Reference Range Interpretation Comments MCH (test code = MCH) 32.3 pg 27.0-31.0 [place] [address]-03-01 08:07:00 Test Item Value Reference Range Interpretation Comments MCHC (test code = MCHC) 34.3 32.0-36.0 [place] [address]-03-01 08:07:00 Test Item Value Reference Range Interpretation Comments RDW (test code = RDW) 16.1 11.5-14.5 [place] [address]-03-01 08:07:00 Test Item Value Reference Range Interpretation Comments Platelet (test code = Platelet) 354 133-450 [place] 519362-03-01 08:07:00 Test Item Value Reference Range Interpretation Comments MPV (test code = MPV) 7.0 7.4-10.4 [place] [address]-03-01 08:07:00 Test Item Value Reference Range Interpretation Comments Segs (test code = Segs) 58.8 45.0-75.0 [place] [address]-03-01 08:07:00 Test Item Value Reference Range Interpretation Comments Lymphocytes (test code = Lymphocytes) 16.9 20.0-40.0 [place] [address]-03-01 08:07:00 Test Item Value Reference Range Interpretation Comments Monocytes (test code = Monocytes) 17.8 2.0-12.0 [place] [address]-03-01 08:07:00 Test Item Value Reference Range Interpretation Comments Eosinophils (test code = 5.4 See_Comment [A utomated message] The Eosinophils) system which ge nerated this result tra nsmitted reference range : <=4.0. The reference r patria was not used to int erpret this result as normal/abnormal . [place] [address]-03-01 08:07:00 Test Item Value Reference Range Interpretation Comments Basophils (test code = 1.1 See_Comment [Aut omated message] The Basophils) system which ge nerated this result tra nsmitted reference range : <=1.0. The reference r patria was not used to int erpret this result as normal/abnormal . [place] [address]-03-01 08:07:00 Test Item Value Reference Range Interpretation Comments Neutrophils # (test code = Neutrophils 3.1 1.5-8.1 #) [place] [address]-03-01 08:07:00 Test Item Value Reference Range Interpretation Comments Lymphocytes # (test code = Lymphocytes 0.9 1.0-5.5 #) [place] [address]-03-01 08:07:00 Test Item Value Reference Range Interpretation Comments Monocytes # (test code 0.9 See_Comment [Aut omated message] The = Monocytes #) system which generated this result tra nsmitted reference range : <=0.8. The reference r patria was not used to int erpret this result as normal/abnormal . [place] [address]-03-01 08:07:00 Test Item Value Reference Range Interpretation Comments Eosinophils # (test code 0.3 See_Comment [A utomated message] The = Eosinophils #) system whic h generated this result tra nsmitted reference range : <=0.5. The reference r patria was not used to int erpret this result as normal/abnormal . [place] [address]-03-01 08:07:00 Test Item Value Reference Range Interpretation Comments Basophils # (test code 0.1 See_Comment [Aut omated message] The = Basophils #) system which generated this result tra nsmitted reference range : <=0.2. The reference r patria was not used to int erpret this result as normal/abnormal . [facility]About[facility] [id number] 08:07:00 Test Item Value Reference Range Interpretation Comments Procalcitonin Lvl (test 0.16 See_Comment [Au tomated message] code = Procalcitonin Lvl) Th e system which generated this result transmitted ref erence range: <=0.10. The reference range was not used to interpr et this result as normal/abnormal . [facility] [id number] 08:07:00 Test Item Value Reference Range Interpretation Comments Lactic Acid Lvl (test code = Lactic 1.1 0.5-2.2 Acid Lvl) [facility] HospitalQrobksrXQVMCMXOIX5831-72-54 08:07:00 Test Item Value Reference Range Interpretation Comments WBC (test code = WBC) 5.3 3.7-10.4 [place]-03-01 08:07:00 Test Item Value Reference Range Interpretation Comments RBC (test code = RBC) 2.29 4.20-5.40 [facility] HospitalQritejwCFKPYPWWZS7810-28-78 08:07:00 Test Item Value Reference Range Interpretation Comments Hgb (test code = Hgb) 7.4 12.0-16.0 [place]-03-01 08:07:00 Test Item Value Reference Range Interpretation Comments Hct (test code = Hct) 21.5 36.0-48.0 [facility] ResourcesCleipclXKBJBLGGUN7036-30-34 08:07:00 Test Item Value Reference Range Interpretation Comments MCV (test code = MCV) 94.1 80.0-98.0 [place]-03-01 08:07:00 Test Item Value Reference Range Interpretation Comments MCH (test code = MCH) 32.3 pg 27.0-31.0 [place]-03-01 08:07:00 Test Item Value Reference Range Interpretation Comments MCHC (test code = MCHC) 34.3 32.0-36.0 [place] [address]-03-01 08:07:00 Test Item Value Reference Range Interpretation Comments RDW (test code = RDW) 16.1 11.5-14.5 [place]-03-01 08:07:00 Test Item Value Reference Range Interpretation Comments Platelet (test code = Platelet) 354 133-450 [place]-03-01 08:07:00 Test Item Value Reference Range Interpretation Comments MPV (test code = MPV) 7.0 7.4-10.4 [place]-03-01 08:07:00 Test Item Value Reference Range Interpretation Comments Segs (test code = Segs) 58.8 45.0-75.0 [place]-03-01 08:07:00 Test Item Value Reference Range Interpretation Comments Lymphocytes (test code = Lymphocytes) 16.9 20.0-40.0 [place] [address]-03-01 08:07:00 Test Item Value Reference Range Interpretation Comments Monocytes (test code = Monocytes) 17.8 2.0-12.0 [place]-03-01 08:07:00 Test Item Value Reference Range Interpretation Comments Eosinophils (test code = 5.4 See_Comment [A utomated message] The Eosinophils) system which ge nerated this result tra nsmitted reference range : <=4.0. The reference r patria was not used to int erpret this result as normal/abnormal . [place] [address]-03-01 08:07:00 Test Item Value Reference Range Interpretation Comments Basophils (test code = 1.1 See_Comment [Aut omated message] The Basophils) system which ge nerated this result tra nsmitted reference range : <=1.0. The reference r patria was not used to int erpret this result as normal/abnormal . [facility]TwbyoxtERZPSDOHUO9604-36-31 08:07:00 Test Item Value Reference Range Interpretation Comments Neutrophils # (test code = Neutrophils 3.1 1.5-8.1 #) [place] 519362-03-01 08:07:00 Test Item Value Reference Range Interpretation Comments Lymphocytes # (test code = Lymphocytes 0.9 1.0-5.5 #) [place] [address]-03-01 08:07:00 Test Item Value Reference Range Interpretation Comments Monocytes # (test code 0.9 See_Comment [Aut omated message] The = Monocytes #) system which generated this result tra nsmitted reference range : <=0.8. The reference r patria was not used to int erpret this result as normal/abnormal . [facility] HospitalGdxgptcVDBKNYSLZY5435-09-02 08:07:00 Test Item Value Reference Range Interpretation Comments Eosinophils # (test code 0.3 See_Comment [A utomated message] The = Eosinophils #) system whic h generated this result tra nsmitted reference range : <=0.5. The reference r patria was not used to int erpret this result as normal/abnormal . [facility] HospitalZpospthLMCLWJRKLT8239-10-43 08:07:00 Test Item Value Reference Range Interpretation Comments Basophils # (test code 0.1 See_Comment [Aut omated message] The = Basophils #) system which generated this result tra nsmitted reference range : <=0.2. The reference r patria was not used to int erpret this result as normal/abnormal . [facility] [id number] 08:07:00 Test Item Value Reference Range Interpretation Comments Procalcitonin Lvl (test 0.16 See_Comment [Au tomated message] code = Procalcitonin Lvl) Th e system which generated this result transmitted ref erence range: <=0.10. The reference range was not used to interpr et this result as normal/abnormal . [facility] [id number] 08:07:00 Test Item Value Reference Range Interpretation Comments Lactic Acid Lvl (test code = Lactic 1.1 0.5-2.2 Acid Lvl) [facility] HospitalDainccwFYCHGOPYNT9150-45-29 08:07:00 Test Item Value Reference Range Interpretation Comments WBC (test code = WBC) 5.3 3.7-10.4 [facility] HospitalUhexbdnKCFWRNIQAJ5989-79-42 08:07:00 Test Item Value Reference Range Interpretation Comments RBC (test code = RBC) 2.29 4.20-5.40 [facility] HospitalOhpfgqeJYVLAZJVIS8769-59-00 08:07:00 Test Item Value Reference Range Interpretation Comments Hgb (test code = Hgb) 7.4 12.0-16.0 [facility] HospitalPifsrhkVFSVYJNXSC0923-82-00 08:07:00 Test Item Value Reference Range Interpretation Comments Hct (test code = Hct) 21.5 36.0-48.0 [facility] HospitalKbdwputRUDQBWGKTC9694-05-71 08:07:00 Test Item Value Reference Range Interpretation Comments MCV (test code = MCV) 94.1 80.0-98.0 [place] [address]-03-01 08:07:00 Test Item Value Reference Range Interpretation Comments MCH (test code = MCH) 32.3 pg 27.0-31.0 [place]-03-01 08:07:00 Test Item Value Reference Range Interpretation Comments MCHC (test code = MCHC) 34.3 32.0-36.0 [place] [address]-03-01 08:07:00 Test Item Value Reference Range Interpretation Comments RDW (test code = RDW) 16.1 11.5-14.5 [place] [address]-03-01 08:07:00 Test Item Value Reference Range Interpretation Comments Platelet (test code = Platelet) 354 133-450 [place]362-03-01 08:07:00 Test Item Value Reference Range Interpretation Comments MPV (test code = MPV) 7.0 7.4-10.4 [place] [address]-03-01 08:07:00 Test Item Value Reference Range Interpretation Comments Segs (test code = Segs) 58.8 45.0-75.0 [place] [address]-03-01 08:07:00 Test Item Value Reference Range Interpretation Comments Lymphocytes (test code = Lymphocytes) 16.9 20.0-40.0 [place] [address]-03-01 08:07:00 Test Item Value Reference Range Interpretation Comments Monocytes (test code = Monocytes) 17.8 2.0-12.0 [place] [address]-03-01 08:07:00 Test Item Value Reference Range Interpretation Comments Eosinophils (test code = 5.4 See_Comment [A utomated message] The Eosinophils) system which ge nerated this result tra nsmitted reference range : <=4.0. The reference r patria was not used to int erpret this result as normal/abnormal . [place] [address]-03-01 08:07:00 Test Item Value Reference Range Interpretation Comments Basophils (test code = 1.1 See_Comment [Aut omated message] The Basophils) system which ge nerated this result tra nsmitted reference range : <=1.0. The reference r patria was not used to int erpret this result as normal/abnormal . [place] [address]-03-01 08:07:00 Test Item Value Reference Range Interpretation Comments Neutrophils # (test code = Neutrophils 3.1 1.5-8.1 #) [place]-03-01 08:07:00 Test Item Value Reference Range Interpretation Comments Lymphocytes # (test code = Lymphocytes 0.9 1.0-5.5 #) [place] [address]-03-01 08:07:00 Test Item Value Reference Range Interpretation Comments Monocytes # (test code 0.9 See_Comment [Aut omated message] The = Monocytes #) system which generated this result tra nsmitted reference range : <=0.8. The reference r patria was not used to int erpret this result as normal/abnormal . [place] [address]-03-01 08:07:00 Test Item Value Reference Range Interpretation Comments Eosinophils # (test code 0.3 See_Comment [A utomated message] The = Eosinophils #) system whic h generated this result tra nsmitted reference range : <=0.5. The reference r patria was not used to int erpret this result as normal/abnormal . [place] [address]-03-01 08:07:00 Test Item Value Reference Range Interpretation Comments Basophils # (test code 0.1 See_Comment [Aut omated message] The = Basophils #) system which generated this result tra nsmitted reference range : <=0.2. The reference r patria was not used to int erpret this result as normal/abnormal . [place] 542562-03-01 08:07:00 Test Item Value Reference Range Interpretation Comments Procalcitonin Lvl (test 0.16 See_Comment [Au tomated message] code = Procalcitonin Lvl) Th e system which generated this result transmitted ref erence range: <=0.10. The reference range was not used to interpr et this result as normal/abnormal . [place] 542562-03-01 08:07:00 Test Item Value Reference Range Interpretation Comments Lactic Acid Lvl (test code = Lactic 1.1 0.5-2.2 Acid Lvl) [place] [address]-03-01 08:07:00 Test Item Value Reference Range Interpretation Comments WBC (test code = WBC) 5.3 3.7-10.4 [place]-03-01 08:07:00 Test Item Value Reference Range Interpretation Comments RBC (test code = RBC) 2.29 4.20-5.40 [place]-03-01 08:07:00 Test Item Value Reference Range Interpretation Comments Hgb (test code = Hgb) 7.4 12.0-16.0 [place]-03-01 08:07:00 Test Item Value Reference Range Interpretation Comments Hct (test code = Hct) 21.5 36.0-48.0 [place]-03-01 08:07:00 Test Item Value Reference Range Interpretation Comments MCV (test code = MCV) 94.1 80.0-98.0 [place]-03-01 08:07:00 Test Item Value Reference Range Interpretation Comments MCH (test code = MCH) 32.3 pg 27.0-31.0 [place]-03-01 08:07:00 Test Item Value Reference Range Interpretation Comments MCHC (test code = MCHC) 34.3 32.0-36.0 [place]362-03-01 08:07:00 Test Item Value Reference Range Interpretation Comments RDW (test code = RDW) 16.1 11.5-14.5 [place]-03-01 08:07:00 Test Item Value Reference Range Interpretation Comments Platelet (test code = Platelet) 354 133-450 [facility]MyxypkdUPTCWUBDZK9732-90-96 08:07:00 Test Item Value Reference Range Interpretation Comments MPV (test code = MPV) 7.0 7.4-10.4 [place] [address]-03-01 08:07:00 Test Item Value Reference Range Interpretation Comments Segs (test code = Segs) 58.8 45.0-75.0 [place] [address]-03-01 08:07:00 Test Item Value Reference Range Interpretation Comments Lymphocytes (test code = Lymphocytes) 16.9 20.0-40.0 [place] [address]-03-01 08:07:00 Test Item Value Reference Range Interpretation Comments Monocytes (test code = Monocytes) 17.8 2.0-12.0 [place] [address]-03-01 08:07:00 Test Item Value Reference Range Interpretation Comments Eosinophils (test code = 5.4 See_Comment [A utomated message] The Eosinophils) system which ge nerated this result tra nsmitted reference range : <=4.0. The reference r patria was not used to int erpret this result as normal/abnormal . [place]-03-01 08:07:00 Test Item Value Reference Range Interpretation Comments Basophils (test code = 1.1 See_Comment [Aut omated message] The Basophils) system which ge nerated this result tra nsmitted reference range : <=1.0. The reference r patria was not used to int erpret this result as normal/abnormal . [place]-03-01 08:07:00 Test Item Value Reference Range Interpretation Comments Neutrophils # (test code = Neutrophils 3.1 1.5-8.1 #) [place]-03-01 08:07:00 Test Item Value Reference Range Interpretation Comments Lymphocytes # (test code = Lymphocytes 0.9 1.0-5.5 #) [place] [address]-03-01 08:07:00 Test Item Value Reference Range Interpretation Comments Monocytes # (test code 0.9 See_Comment [Aut omated message] The = Monocytes #) system which generated this result tra nsmitted reference range : <=0.8. The reference r patria was not used to int erpret this result as normal/abnormal . [place]-03-01 08:07:00 Test Item Value Reference Range Interpretation Comments Eosinophils # (test code 0.3 See_Comment [A utomated message] The = Eosinophils #) system whic h generated this result tra nsmitted reference range : <=0.5. The reference r patria was not used to int erpret this result as normal/abnormal . [place]-03-01 08:07:00 Test Item Value Reference Range Interpretation Comments Basophils # (test code 0.1 See_Comment [Aut omated message] The = Basophils #) system which generated this result tra nsmitted reference range : <=0.2. The reference r patria was not used to int erpret this result as normal/abnormal . [place] 542562-03-01 08:07:00 Test Item Value Reference Range Interpretation Comments Procalcitonin Lvl (test 0.16 See_Comment [Au tomated message] code = Procalcitonin Lvl) Th e system which generated this result transmitted ref erence range: <=0.10. The reference range was not used to interpr et this result as normal/abnormal . [facility] [id number] 08:07:00 Test Item Value Reference Range Interpretation Comments Lactic Acid Lvl (test code = Lactic 1.1 0.5-2.2 Acid Lvl) [place]-03-01 08:07:00 Test Item Value Reference Range Interpretation Comments WBC (test code = WBC) 5.3 3.7-10.4 [place]-03-01 08:07:00 Test Item Value Reference Range Interpretation Comments RBC (test code = RBC) 2.29 4.20-5.40 [place]-03-01 08:07:00 Test Item Value Reference Range Interpretation Comments Hgb (test code = Hgb) 7.4 12.0-16.0 [place]-03-01 08:07:00 Test Item Value Reference Range Interpretation Comments Hct (test code = Hct) 21.5 36.0-48.0 [facility]uvfnjXTFIVWTXQN4486-13-40 08:07:00 Test Item Value Reference Range Interpretation Comments MCV (test code = MCV) 94.1 80.0-98.0 [place]-03-01 08:07:00 Test Item Value Reference Range Interpretation Comments MCH (test code = MCH) 32.3 pg 27.0-31.0 [place]-03-01 08:07:00 Test Item Value Reference Range Interpretation Comments MCHC (test code = MCHC) 34.3 32.0-36.0 [place]362-03-01 08:07:00 Test Item Value Reference Range Interpretation Comments RDW (test code = RDW) 16.1 11.5-14.5 [place]-03-01 08:07:00 Test Item Value Reference Range Interpretation Comments Platelet (test code = Platelet) 354 133-450 [place] 519362-03-01 08:07:00 Test Item Value Reference Range Interpretation Comments MPV (test code = MPV) 7.0 7.4-10.4 [place]-03-01 08:07:00 Test Item Value Reference Range Interpretation Comments Segs (test code = Segs) 58.8 45.0-75.0 [place]-03-01 08:07:00 Test Item Value Reference Range Interpretation Comments Lymphocytes (test code = Lymphocytes) 16.9 20.0-40.0 [place]-03-01 08:07:00 Test Item Value Reference Range Interpretation Comments Monocytes (test code = Monocytes) 17.8 2.0-12.0 [place] [address]-03-01 08:07:00 Test Item Value Reference Range Interpretation Comments Eosinophils (test code = 5.4 See_Comment [A utomated message] The Eosinophils) system which ge nerated this result tra nsmitted reference range : <=4.0. The reference r patria was not used to int erpret this result as normal/abnormal . [place] [address]-03-01 08:07:00 Test Item Value Reference Range Interpretation Comments Basophils (test code = 1.1 See_Comment [Aut omated message] The Basophils) system which ge nerated this result tra nsmitted reference range : <=1.0. The reference r patria was not used to int erpret this result as normal/abnormal . [place]362-03-01 08:07:00 Test Item Value Reference Range Interpretation Comments Neutrophils # (test code = Neutrophils 3.1 1.5-8.1 #) [place] 519362-03-01 08:07:00 Test Item Value Reference Range Interpretation Comments Lymphocytes # (test code = Lymphocytes 0.9 1.0-5.5 #) [place] [address]-03-01 08:07:00 Test Item Value Reference Range Interpretation Comments Monocytes # (test code 0.9 See_Comment [Aut omated message] The = Monocytes #) system which generated this result tra nsmitted reference range : <=0.8. The reference r patria was not used to int erpret this result as normal/abnormal . [place] [address]-03-01 08:07:00 Test Item Value Reference Range Interpretation Comments Eosinophils # (test code 0.3 See_Comment [A utomated message] The = Eosinophils #) system whic h generated this result tra nsmitted reference range : <=0.5. The reference r patria was not used to int erpret this result as normal/abnormal . [facility] ResourcesTgefzzfBSRYDNRIVH5705-82-25 08:07:00 Test Item Value Reference Range Interpretation Comments Basophils # (test code 0.1 See_Comment [Aut omated message] The = Basophils #) system which generated this result tra nsmitted reference range : <=0.2. The reference r patria was not used to int erpret this result as normal/abnormal . [facility] [id number] 08:07:00 Test Item Value Reference Range Interpretation Comments Procalcitonin Lvl (test 0.16 See_Comment [Au tomated message] code = Procalcitonin Lvl) Th e system which generated this result transmitted ref erence range: <=0.10. The reference range was not used to interpr et this result as normal/abnormal . [facility] [id number] 08:07:00 Test Item Value Reference Range Interpretation Comments Lactic Acid Lvl (test code = Lactic 1.1 0.5-2.2 Acid Lvl) [facility]EDRRFGVBFL4992[facility]22-45 08:07:00 Test Item Value Reference Range Interpretation Comments WBC (test code = WBC) 5.3 3.7-10.4 [facility]PydvzeqAGTTRDYJIT6971-08-35 08:07:00 Test Item Value Reference Range Interpretation Comments RBC (test code = RBC) 2.29 4.20-5.40 [facility] ResourcesRorcwlqHRBUKFLAIQ5813-29-39 08:07:00 Test Item Value Reference Range Interpretation Comments Hgb (test code = Hgb) 7.4 12.0-16.0 [facility] ResourcesGwcxptbLQQLWEWHPY2570-85-95 08:07:00 Test Item Value Reference Range Interpretation Comments Hct (test code = Hct) 21.5 36.0-48.0 [facility] HospitalVitezumSSJYSXWNYT6580-34-14 08:07:00 Test Item Value Reference Range Interpretation Comments MCV (test code = MCV) 94.1 80.0-98.0 [facility] HospitalZpbyfpvRTBICSNKPY0472-47-02 08:07:00 Test Item Value Reference Range Interpretation Comments MCH (test code = MCH) 32.3 pg 27.0-31.0 [place] 519362-03-01 08:07:00 Test Item Value Reference Range Interpretation Comments MCHC (test code = MCHC) 34.3 32.0-36.0 [facility]pEXYHALNSUM8941-74-94 08:07:00 Test Item Value Reference Range Interpretation Comments RDW (test code = RDW) 16.1 11.5-14.5 [place] 519362-03-01 08:07:00 Test Item Value Reference Range Interpretation Comments Platelet (test code = Platelet) 354 133-450 [facility]PlmbcrhBFWNYPZNUD8635-29-83 08:07:00 Test Item Value Reference Range Interpretation Comments MPV (test code = MPV) 7.0 7.4-10.4 [place] 519362-03-01 08:07:00 Test Item Value Reference Range Interpretation Comments Segs (test code = Segs) 58.8 45.0-75.0 [place] 519362-03-01 08:07:00 Test Item Value Reference Range Interpretation Comments Lymphocytes (test code = Lymphocytes) 16.9 20.0-40.0 [facility] CenterTppbrafHTOMKYJIOD8062-92-05 08:07:00 Test Item Value Reference Range Interpretation Comments Monocytes (test code = Monocytes) 17.8 2.0-12.0 [place] 519362-03-01 08:07:00 Test Item Value Reference Range Interpretation Comments Eosinophils (test code = 5.4 See_Comment [A utomated message] The Eosinophils) system which ge nerated this result tra nsmitted reference range : <=4.0. The reference r patria was not used to int erpret this result as normal/abnormal . [place] 519362-03-01 08:07:00 Test Item Value Reference Range Interpretation Comments Basophils (test code = 1.1 See_Comment [Aut omated message] The Basophils) system which ge nerated this result tra nsmitted reference range : <=1.0. The reference r patria was not used to int erpret this result as normal/abnormal . [facility] CenterSuhgqoxPDMNWVMSIR0790-48-50 08:07:00 Test Item Value Reference Range Interpretation Comments Neutrophils # (test code = Neutrophils 3.1 1.5-8.1 #) [place] 519362-03-01 08:07:00 Test Item Value Reference Range Interpretation Comments Lymphocytes # (test code = Lymphocytes 0.9 1.0-5.5 #) [place] [address]-03-01 08:07:00 Test Item Value Reference Range Interpretation Comments Monocytes # (test code 0.9 See_Comment [Aut omated message] The = Monocytes #) system which generated this result tra nsmitted reference range : <=0.8. The reference r patria was not used to int erpret this result as normal/abnormal . [place] [address]-03-01 08:07:00 Test Item Value Reference Range Interpretation Comments Eosinophils # (test code 0.3 See_Comment [A utomated message] The = Eosinophils #) system whic h generated this result tra nsmitted reference range : <=0.5. The reference r patria was not used to int erpret this result as normal/abnormal . [place] [address]-03-01 08:07:00 Test Item Value Reference Range Interpretation Comments Basophils # (test code 0.1 See_Comment [Aut omated message] The = Basophils #) system which generated this result tra nsmitted reference range : <=0.2. The reference r patria was not used to int erpret this result as normal/abnormal . [facility] [id number] 08:07:00 Test Item Value Reference Range Interpretation Comments Procalcitonin Lvl (test 0.16 See_Comment [Au tomated message] code = Procalcitonin Lvl) Th e system which generated this result transmitted ref erence range: <=0.10. The reference range was not used to interpr et this result as normal/abnormal . [facility] [id number] 08:07:00 Test Item Value Reference Range Interpretation Comments Lactic Acid Lvl (test code = Lactic 1.1 0.5-2.2 Acid Lvl) [place] [address]-03-01 08:07:00 Test Item Value Reference Range Interpretation Comments WBC (test code = WBC) 5.3 3.7-10.4 [place] [address]-03-01 08:07:00 Test Item Value Reference Range Interpretation Comments RBC (test code = RBC) 2.29 4.20-5.40 [place] 519362-03-01 08:07:00 Test Item Value Reference Range Interpretation Comments Hgb (test code = Hgb) 7.4 12.0-16.0 [place] 519362-03-01 08:07:00 Test Item Value Reference Range Interpretation Comments Hct (test code = Hct) 21.5 36.0-48.0 [place] 519362-03-01 08:07:00 Test Item Value Reference Range Interpretation Comments MCV (test code = MCV) 94.1 80.0-98.0 [place] 519362-03-01 08:07:00 Test Item Value Reference Range Interpretation Comments MCH (test code = MCH) 32.3 pg 27.0-31.0 [place] 519362-03-01 08:07:00 Test Item Value Reference Range Interpretation Comments MCHC (test code = MCHC) 34.3 32.0-36.0 [place] 519362-03-01 08:07:00 Test Item Value Reference Range Interpretation Comments RDW (test code = RDW) 16.1 11.5-14.5 [place] 519362-03-01 08:07:00 Test Item Value Reference Range Interpretation Comments Platelet (test code = Platelet) 354 133-450 [facility] CenterAlziatiNXPRQUGNQR7300-83-13 08:07:00 Test Item Value Reference Range Interpretation Comments MPV (test code = MPV) 7.0 7.4-10.4 [place] 519362-03-01 08:07:00 Test Item Value Reference Range Interpretation Comments Segs (test code = Segs) 58.8 45.0-75.0 [place] 519362-03-01 08:07:00 Test Item Value Reference Range Interpretation Comments Lymphocytes (test code = Lymphocytes) 16.9 20.0-40.0 [place] [address]-03-01 08:07:00 Test Item Value Reference Range Interpretation Comments Monocytes (test code = Monocytes) 17.8 2.0-12.0 [place] [address]-03-01 08:07:00 Test Item Value Reference Range Interpretation Comments Eosinophils (test code = 5.4 See_Comment [A utomated message] The Eosinophils) system which ge nerated this result tra nsmitted reference range : <=4.0. The reference r patria was not used to int erpret this result as normal/abnormal . [place] 519362-03-01 08:07:00 Test Item Value Reference Range Interpretation Comments Basophils (test code = 1.1 See_Comment [Aut omated message] The Basophils) system which ge nerated this result tra nsmitted reference range : <=1.0. The reference r patria was not used to int erpret this result as normal/abnormal . [place] 519362-03-01 08:07:00 Test Item Value Reference Range Interpretation Comments Neutrophils # (test code = Neutrophils 3.1 1.5-8.1 #) [place] 519362-03-01 08:07:00 Test Item Value Reference Range Interpretation Comments Lymphocytes # (test code = Lymphocytes 0.9 1.0-5.5 #) [place] [address]-03-01 08:07:00 Test Item Value Reference Range Interpretation Comments Monocytes # (test code 0.9 See_Comment [Aut omated message] The = Monocytes #) system which generated this result tra nsmitted reference range : <=0.8. The reference r patria was not used to int erpret this result as normal/abnormal . [place] 519362-03-01 08:07:00 Test Item Value Reference Range Interpretation Comments Eosinophils # (test code 0.3 See_Comment [A utomated message] The = Eosinophils #) system whic h generated this result tra nsmitted reference range : <=0.5. The reference r patria was not used to int erpret this result as normal/abnormal . [place] 519362-03-01 08:07:00 Test Item Value Reference Range Interpretation Comments Basophils # (test code 0.1 See_Comment [Aut omated message] The = Basophils #) system which generated this result tra nsmitted reference range : <=0.2. The reference r patria was not used to int erpret this result as normal/abnormal . [facility]2022-03-01 08:07:00 Test Item Value Reference Range Interpretation Comments Procalcitonin Lvl (test 0.16 See_Comment [Au tomated message] code = Procalcitonin Lvl) Th e system which generated this result transmitted ref erence range: <=0.10. The reference range was not used to interpr et this result as normal/abnormal . [facility]2022-03-01 08:07:00 Test Item Value Reference Range Interpretation Comments Lactic Acid Lvl (test code = Lactic 1.1 0.5-2.2 Acid Lvl) [facility]LtrurzlQVXUZDTWEO6098-28-15 08:07:00 Test Item Value Reference Range Interpretation Comments WBC (test code = WBC) 5.3 3.7-10.4 [place] 519362-03-01 08:07:00 Test Item Value Reference Range Interpretation Comments RBC (test code = RBC) 2.29 4.20-5.40 [place] 519362-03-01 08:07:00 Test Item Value Reference Range Interpretation Comments Hgb (test code = Hgb) 7.4 12.0-16.0 [place] 519362-03-01 08:07:00 Test Item Value Reference Range Interpretation Comments Hct (test code = Hct) 21.5 36.0-48.0 [facility] CenterLjugkicTERSPGDKJH3957-44-03 08:07:00 Test Item Value Reference Range Interpretation Comments MCV (test code = MCV) 94.1 80.0-98.0 [place] 519362-03-01 08:07:00 Test Item Value Reference Range Interpretation Comments MCH (test code = MCH) 32.3 pg 27.0-31.0 [facility] CenterUsgqjsoKAWTOCEJRV1418-44-75 08:07:00 Test Item Value Reference Range Interpretation Comments MCHC (test code = MCHC) 34.3 32.0-36.0 [place] 519362-03-01 08:07:00 Test Item Value Reference Range Interpretation Comments RDW (test code = RDW) 16.1 11.5-14.5 [place] 519362-03-01 08:07:00 Test Item Value Reference Range Interpretation Comments Platelet (test code = Platelet) 354 133-450 [facility] CenterRrptmzeNEQDEGYDBL4584-81-12 08:07:00 Test Item Value Reference Range Interpretation Comments MPV (test code = MPV) 7.0 7.4-10.4 [place] 519362-03-01 08:07:00 Test Item Value Reference Range Interpretation Comments Segs (test code = Segs) 58.8 45.0-75.0 [place] [address]-03-01 08:07:00 Test Item Value Reference Range Interpretation Comments Lymphocytes (test code = Lymphocytes) 16.9 20.0-40.0 [place] [address]-03-01 08:07:00 Test Item Value Reference Range Interpretation Comments Monocytes (test code = Monocytes) 17.8 2.0-12.0 [place] [address]-03-01 08:07:00 Test Item Value Reference Range Interpretation Comments Eosinophils (test code = 5.4 See_Comment [A utomated message] The Eosinophils) system which ge nerated this result tra nsmitted reference range : <=4.0. The reference r patria was not used to int erpret this result as normal/abnormal . [place] [address]-03-01 08:07:00 Test Item Value Reference Range Interpretation Comments Basophils (test code = 1.1 See_Comment [Aut omated message] The Basophils) system which ge nerated this result tra nsmitted reference range : <=1.0. The reference r patria was not used to int erpret this result as normal/abnormal . [place] [address]-03-01 08:07:00 Test Item Value Reference Range Interpretation Comments Neutrophils # (test code = Neutrophils 3.1 1.5-8.1 #) [place] [address]-03-01 08:07:00 Test Item Value Reference Range Interpretation Comments Lymphocytes # (test code = Lymphocytes 0.9 1.0-5.5 #) [place] [address]-03-01 08:07:00 Test Item Value Reference Range Interpretation Comments Monocytes # (test code 0.9 See_Comment [Aut omated message] The = Monocytes #) system which generated this result tra nsmitted reference range : <=0.8. The reference r patria was not used to int erpret this result as normal/abnormal . [place] [address]-03-01 08:07:00 Test Item Value Reference Range Interpretation Comments Eosinophils # (test code 0.3 See_Comment [A utomated message] The = Eosinophils #) system whic h generated this result tra nsmitted reference range : <=0.5. The reference r patria was not used to int erpret this result as normal/abnormal . [facility]MiuxbaaYZXKCXJSJN4593-86-83 08:07:00 Test Item Value Reference Range Interpretation Comments Basophils # (test code 0.1 See_Comment [Aut omated message] The = Basophils #) system which generated this result tra nsmitted reference range : <=0.2. The reference r patria was not used to int erpret this result as normal/abnormal . [facility] [id number] 08:07:00 Test Item Value Reference Range Interpretation Comments Procalcitonin Lvl (test 0.16 See_Comment [Au tomated message] code = Procalcitonin Lvl) Th e system which generated this result transmitted ref erence range: <=0.10. The reference range was not used to interpr et this result as normal/abnormal . [facility] [id number] 08:07:00 Test Item Value Reference Range Interpretation Comments Lactic Acid Lvl (test code = Lactic 1.1 0.5-2.2 Acid Lvl) [facility] HospitalKnuncsjULKPZNUUXD3560-11-18 08:07:00 Test Item Value Reference Range Interpretation Comments WBC (test code = WBC) 5.3 3.7-10.4 [place] 519362-03-01 08:07:00 Test Item Value Reference Range Interpretation Comments RBC (test code = RBC) 2.29 4.20-5.40 [facility] HospitalJbwnidbNKDKQIAYMV8657-35-62 08:07:00 Test Item Value Reference Range Interpretation Comments Hgb (test code = Hgb) 7.4 12.0-16.0 [facility] HospitalLopuvsjEDPEJJKLBN4630-67-56 08:07:00 Test Item Value Reference Range Interpretation Comments Hct (test code = Hct) 21.5 36.0-48.0 [facility] HospitalDozivyrBJQVLBLAGN9686-49-02 08:07:00 Test Item Value Reference Range Interpretation Comments MCV (test code = MCV) 94.1 80.0-98.0 [place] [address]-03-01 08:07:00 Test Item Value Reference Range Interpretation Comments MCH (test code = MCH) 32.3 pg 27.0-31.0 [place] [address]-03-01 08:07:00 Test Item Value Reference Range Interpretation Comments MCHC (test code = MCHC) 34.3 32.0-36.0 [place] 519362-03-01 08:07:00 Test Item Value Reference Range Interpretation Comments RDW (test code = RDW) 16.1 11.5-14.5 [place] 519362-03-01 08:07:00 Test Item Value Reference Range Interpretation Comments Platelet (test code = Platelet) 354 133-450 [place] 519362-03-01 08:07:00 Test Item Value Reference Range Interpretation Comments MPV (test code = MPV) 7.0 7.4-10.4 [place] 519362-03-01 08:07:00 Test Item Value Reference Range Interpretation Comments Segs (test code = Segs) 58.8 45.0-75.0 [place] [address]-03-01 08:07:00 Test Item Value Reference Range Interpretation Comments Lymphocytes (test code = Lymphocytes) 16.9 20.0-40.0 [place] 519362-03-01 08:07:00 Test Item Value Reference Range Interpretation Comments Monocytes (test code = Monocytes) 17.8 2.0-12.0 [place] 519362-03-01 08:07:00 Test Item Value Reference Range Interpretation Comments Eosinophils (test code = 5.4 See_Comment [A utomated message] The Eosinophils) system which ge nerated this result tra nsmitted reference range : <=4.0. The reference r patria was not used to int erpret this result as normal/abnormal . [facility]XdvfojqCHRWSRKCHF4857-08-04 08:07:00 Test Item Value Reference Range Interpretation Comments Basophils (test code = 1.1 See_Comment [Aut omated message] The Basophils) system which ge nerated this result tra nsmitted reference range : <=1.0. The reference r patria was not used to int erpret this result as normal/abnormal . [place] 519362-03-01 08:07:00 Test Item Value Reference Range Interpretation Comments Neutrophils # (test code = Neutrophils 3.1 1.5-8.1 #) [place] 519362-03-01 08:07:00 Test Item Value Reference Range Interpretation Comments Lymphocytes # (test code = Lymphocytes 0.9 1.0-5.5 #) [place] [address]-03-01 08:07:00 Test Item Value Reference Range Interpretation Comments Monocytes # (test code 0.9 See_Comment [Aut omated message] The = Monocytes #) system which generated this result tra nsmitted reference range : <=0.8. The reference r patria was not used to int erpret this result as normal/abnormal . [place] [address]-03-01 08:07:00 Test Item Value Reference Range Interpretation Comments Eosinophils # (test code 0.3 See_Comment [A utomated message] The = Eosinophils #) system whic h generated this result tra nsmitted reference range : <=0.5. The reference r patria was not used to int erpret this result as normal/abnormal . [place] [address]-03-01 08:07:00 Test Item Value Reference Range Interpretation Comments Basophils # (test code 0.1 See_Comment [Aut omated message] The = Basophils #) system which generated this result tra nsmitted reference range : <=0.2. The reference r patria was not used to int erpret this result as normal/abnormal . [place] [address]-02-28 20:24:00 Test Item Value Reference Range Interpretation Comments Coronavirus (COVID-19) Not Detected (01/08/22 [place] (test code = 2:24 PM) Coronavirus (COVID-19) [place]) [place] 106782-02-28 20:24:00 Test Item Value Reference Range Interpretation Comments Coronavirus (COVID-19) Not Detected (01/08/22 [place] (test code = 2:24 PM) Coronavirus (COVID-19) [place]) [place] [address]-02-28 20:24:00 Test Item Value Reference Range Interpretation Comments Coronavirus (COVID-19) Not Detected (01/08/22 [place] (test code = 2:24 PM) Coronavirus (COVID-19) [place]) [place] [address]-02-28 20:24:00 Test Item Value Reference Range Interpretation Comments Coronavirus (COVID-19) Not Detected (01/08/22 [place] (test code = 2:24 PM) Coronavirus (COVID-19) [place]) [place] [address]-02-28 20:24:00 Test Item Value Reference Range Interpretation Comments Coronavirus (COVID-19) Not Detected (01/08/22 [place] (test code = 2:24 PM) Coronavirus (COVID-19) [place]) [place] 106782-02-28 20:24:00 Test Item Value Reference Range Interpretation Comments Coronavirus (COVID-19) Not Detected (01/08/22 [place] (test code = 2:24 PM) Coronavirus (COVID-19) [place]) [place] 106782-02-28 20:24:00 Test Item Value Reference Range Interpretation Comments Coronavirus (COVID-19) Not Detected (01/08/22 [place] (test code = 2:24 PM) Coronavirus (COVID-19) [place]) [place] 106782-02-28 20:24:00 Test Item Value Reference Range Interpretation Comments Coronavirus (COVID-19) Not Detected (01/08/22 [place] (test code = 2:24 PM) Coronavirus (COVID-19) [place]) [place] 106782-02-28 20:24:00 Test Item Value Reference Range Interpretation Comments Coronavirus (COVID-19) Not Detected (01/08/22 [place] (test code = 2:24 PM) Coronavirus (COVID-19) [place]) [place] 106782-02-28 20:24:00 Test Item Value Reference Range Interpretation Comments Coronavirus (COVID-19) Not Detected (01/08/22 [place] (test code = 2:24 PM) Coronavirus (COVID-19) [place]) [place] 106782-02-28 20:24:00 Test Item Value Reference Range Interpretation Comments Coronavirus (COVID-19) Not Detected (01/08/22 [place] (test code = 2:24 PM) Coronavirus (COVID-19) [place]) [place] 106782-02-28 20:24:00 Test Item Value Reference Range Interpretation Comments Coronavirus (COVID-19) Not Detected (01/08/22 [place] (test code = 2:24 PM) Coronavirus (COVID-19) [place]) [facility]2022-02-28 19:01:00 Test Item Value Reference Range Interpretation Comments Glucose Lvl (test code = Glucose Lvl) 121 70-99 [place] 542562-02-28 19:01:00 Test Item Value Reference Range Interpretation Comments BUN (test code = BUN) 26 7-22 [place] 542562-02-28 19:01:00 Test Item Value Reference Range Interpretation Comments Creatinine Lvl (test code = Creatinine 1.15 0.50-1.40 Lvl) [place] 542562-02-28 19:01:00 Test Item Value Reference Range Interpretation Comments Sodium Lvl (test code = Sodium Lvl) 136 135-145 [place] 542562-02-28 19:01:00 Test Item Value Reference Range Interpretation Comments Potassium Lvl (test code = Potassium 4.8 3.5-5.1 Lvl) [place] 542562-02-28 19:01:00 Test Item Value Reference Range Interpretation Comments Chloride Lvl (test code = Chloride Lvl) 107 95-109 [place] 542562-02-28 19:01:00 Test Item Value Reference Range Interpretation Comments CO2 (test code = CO2) 25 24-32 [place] 542562-02-28 19:01:00 Test Item Value Reference Range Interpretation Comments Calcium Lvl (test code = Calcium Lvl) 9.0 8.5-10.5 [place] 542562-02-28 19:01:00 Test Item Value Reference Range Interpretation Comments AGAP (test code = AGAP) 8.8 10.0-20.0 [place] 542562-02-28 19:01:00 Test Item Value Reference Range Interpretation Comments eGFR (test code = eGFR) 44 [place] 519362-02-28 19:01:00 Test Item Value Reference Range Interpretation Comments Segs (test code = Segs) 67.6 45.0-75.0 [place] [address]-02-28 19:01:00 Test Item Value Reference Range Interpretation Comments Lymphocytes (test code = Lymphocytes) 12.9 20.0-40.0 [place] 519362-02-28 19:01:00 Test Item Value Reference Range Interpretation Comments Monocytes (test code = Monocytes) 15.1 2.0-12.0 [place] 519362-02-28 19:01:00 Test Item Value Reference Range Interpretation Comments Eosinophils (test code = 3.5 See_Comment [A utomated message] The Eosinophils) system which ge nerated this result tra nsmitted reference range : <=4.0. The reference r patria was not used to int erpret this result as normal/abnormal . [place] 519362-02-28 19:01:00 Test Item Value Reference Range Interpretation Comments Basophils (test code = 0.9 See_Comment [Aut omated message] The Basophils) system which ge nerated this result tra nsmitted reference range : <=1.0. The reference r patria was not used to int erpret this result as normal/abnormal . [place] 519362-02-28 19:01:00 Test Item Value Reference Range Interpretation Comments Neutrophils # (test code = Neutrophils 4.2 1.5-8.1 #) [place] 519362-02-28 19:01:00 Test Item Value Reference Range Interpretation Comments Lymphocytes # (test code = Lymphocytes 0.8 1.0-5.5 #) [place] 519362-02-28 19:01:00 Test Item Value Reference Range Interpretation Comments Monocytes # (test code 0.9 See_Comment [Aut omated message] The = Monocytes #) system which generated this result tra nsmitted reference range : <=0.8. The reference r patria was not used to int erpret this result as normal/abnormal . [place] 519362-02-28 19:01:00 Test Item Value Reference Range Interpretation Comments Eosinophils # (test code 0.2 See_Comment [A utomated message] The = Eosinophils #) system whic h generated this result tra nsmitted reference range : <=0.5. The reference r patria was not used to int erpret this result as normal/abnormal . [place] 519362-02-28 19:01:00 Test Item Value Reference Range Interpretation Comments Basophils # (test code 0.1 See_Comment [Aut omated message] The = Basophils #) system which generated this result tra nsmitted reference range : <=0.2. The reference r patria was not used to int erpret this result as normal/abnormal . [place] 519362-02-28 19:01:00 Test Item Value Reference Range Interpretation Comments WBC (test code = WBC) 6.2 3.7-10.4 [place] 519362-02-28 19:01:00 Test Item Value Reference Range Interpretation Comments RBC (test code = RBC) 3.07 4.20-5.40 [place] 519362-02-28 19:01:00 Test Item Value Reference Range Interpretation Comments MCV (test code = MCV) 93.8 80.0-98.0 [place] 519362-02-28 19:01:00 Test Item Value Reference Range Interpretation Comments MCH (test code = MCH) 31.0 pg 27.0-31.0 [place] 519362-02-28 19:01:00 Test Item Value Reference Range Interpretation Comments MCHC (test code = MCHC) 33.1 32.0-36.0 [place] 519362-02-28 19:01:00 Test Item Value Reference Range Interpretation Comments RDW (test code = RDW) 15.9 11.5-14.5 [place] 519362-02-28 19:01:00 Test Item Value Reference Range Interpretation Comments Platelet (test code = Platelet) 367 133-450 [place] 519362-02-28 19:01:00 Test Item Value Reference Range Interpretation Comments MPV (test code = MPV) 7.0 7.4-10.4 [facility]2022-02-28 19:01:00 Test Item Value Reference Range Interpretation Comments Glucose Lvl (test code = Glucose Lvl) 121 70-99 [place] 542562-02-28 19:01:00 Test Item Value Reference Range Interpretation Comments BUN (test code = BUN) 26 7-22 [place] 542562-02-28 19:01:00 Test Item Value Reference Range Interpretation Comments Creatinine Lvl (test code = Creatinine 1.15 0.50-1.40 Lvl) [place] 542562-02-28 19:01:00 Test Item Value Reference Range Interpretation Comments Sodium Lvl (test code = Sodium Lvl) 136 135-145 [place] 542562-02-28 19:01:00 Test Item Value Reference Range Interpretation Comments Potassium Lvl (test code = Potassium 4.8 3.5-5.1 Lvl) [place] 542562-02-28 19:01:00 Test Item Value Reference Range Interpretation Comments Chloride Lvl (test code = Chloride Lvl) 107 95-109 [place] 542562-02-28 19:01:00 Test Item Value Reference Range Interpretation Comments CO2 (test code = CO2) 25 24-32 [place] 542562-02-28 19:01:00 Test Item Value Reference Range Interpretation Comments Calcium Lvl (test code = Calcium Lvl) 9.0 8.5-10.5 [place] 542562-02-28 19:01:00 Test Item Value Reference Range Interpretation Comments AGAP (test code = AGAP) 8.8 10.0-20.0 [place] 542562-02-28 19:01:00 Test Item Value Reference Range Interpretation Comments eGFR (test code = eGFR) 44 [facility]UV[facility]JBXPOX6357[facility]69[facility]16 19:01:00 Test Item Value Reference Range Interpretation Comments Segs (test code = Segs) 67.6 45.0-75.0 [place] 519362-02-28 19:01:00 Test Item Value Reference Range Interpretation Comments Lymphocytes (test code = Lymphocytes) 12.9 20.0-40.0 [place] 519362-02-28 19:01:00 Test Item Value Reference Range Interpretation Comments Monocytes (test code = Monocytes) 15.1 2.0-12.0 [facility]XwaddloNLDFJOADCX8945-75-94 19:01:00 Test Item Value Reference Range Interpretation Comments Eosinophils (test code = 3.5 See_Comment [A utomated message] The Eosinophils) system which ge nerated this result tra nsmitted reference range : <=4.0. The reference r patria was not used to int erpret this result as normal/abnormal . [place] 519362-02-28 19:01:00 Test Item Value Reference Range Interpretation Comments Basophils (test code = 0.9 See_Comment [Aut omated message] The Basophils) system which ge nerated this result tra nsmitted reference range : <=1.0. The reference r patria was not used to int erpret this result as normal/abnormal . [place] 519362-02-28 19:01:00 Test Item Value Reference Range Interpretation Comments Neutrophils # (test code = Neutrophils 4.2 1.5-8.1 #) [facility]JhxtnnbCRCXFZZWHW0443-91-22 19:01:00 Test Item Value Reference Range Interpretation Comments Lymphocytes # (test code = Lymphocytes 0.8 1.0-5.5 #) [facility] CenterJfubvdsQQJBTLGWYJ3294-19-37 19:01:00 Test Item Value Reference Range Interpretation Comments Monocytes # (test code 0.9 See_Comment [Aut omated message] The = Monocytes #) system which generated this result tra nsmitted reference range : <=0.8. The reference r patria was not used to int erpret this result as normal/abnormal . [facility] CenterKiskhfzORAFABYBLA8457-26-03 19:01:00 Test Item Value Reference Range Interpretation Comments Eosinophils # (test code 0.2 See_Comment [A utomated message] The = Eosinophils #) system whic h generated this result tra nsmitted reference range : <=0.5. The reference r patria was not used to int erpret this result as normal/abnormal . [facility] CenterJzokequLIQZLXZZYS8701-94-27 19:01:00 Test Item Value Reference Range Interpretation Comments Basophils # (test code 0.1 See_Comment [Aut omated message] The = Basophils #) system which generated this result tra nsmitted reference range : <=0.2. The reference r patria was not used to int erpret this result as normal/abnormal . [facility] CenterDicosciZZHBPYHRZZ5061-62-75 19:01:00 Test Item Value Reference Range Interpretation Comments WBC (test code = WBC) 6.2 3.7-10.4 [facility] CenterUyewaciRISZPZKDGY0359-26-39 19:01:00 Test Item Value Reference Range Interpretation Comments RBC (test code = RBC) 3.07 4.20-5.40 [place] 519362-02-28 19:01:00 Test Item Value Reference Range Interpretation Comments MCV (test code = MCV) 93.8 80.0-98.0 [place] 519362-02-28 19:01:00 Test Item Value Reference Range Interpretation Comments MCH (test code = MCH) 31.0 pg 27.0-31.0 [facility] CenterQrgukwcCDXSETHSES4748-84-91 19:01:00 Test Item Value Reference Range Interpretation Comments MCHC (test code = MCHC) 33.1 32.0-36.0 [place] 519362-02-28 19:01:00 Test Item Value Reference Range Interpretation Comments RDW (test code = RDW) 15.9 11.5-14.5 [place] 519362-02-28 19:01:00 Test Item Value Reference Range Interpretation Comments Platelet (test code = Platelet) 367 133-450 [place] 519362-02-28 19:01:00 Test Item Value Reference Range Interpretation Comments MPV (test code = MPV) 7.0 7.4-10.4 [facility]2022-02-28 19:01:00 Test Item Value Reference Range Interpretation Comments Glucose Lvl (test code = Glucose Lvl) 121 70-99 [place] 542562-02-28 19:01:00 Test Item Value Reference Range Interpretation Comments BUN (test code = BUN) 26 7-22 [place] 542562-02-28 19:01:00 Test Item Value Reference Range Interpretation Comments Creatinine Lvl (test code = Creatinine 1.15 0.50-1.40 Lvl) [facility]2022-02-28 19:01:00 Test Item Value Reference Range Interpretation Comments Sodium Lvl (test code = Sodium Lvl) 136 135-145 [place] 542562-02-28 19:01:00 Test Item Value Reference Range Interpretation Comments Potassium Lvl (test code = Potassium 4.8 3.5-5.1 Lvl) [place] 542562-02-28 19:01:00 Test Item Value Reference Range Interpretation Comments Chloride Lvl (test code = Chloride Lvl) 107 95-109 [place] 542562-02-28 19:01:00 Test Item Value Reference Range Interpretation Comments CO2 (test code = CO2) 25 24-32 [place] 542562-02-28 19:01:00 Test Item Value Reference Range Interpretation Comments Calcium Lvl (test code = Calcium Lvl) 9.0 8.5-10.5 [place] 542562-02-28 19:01:00 Test Item Value Reference Range Interpretation Comments AGAP (test code = AGAP) 8.8 10.0-20.0 [place] 542562-02-28 19:01:00 Test Item Value Reference Range Interpretation Comments eGFR (test code = eGFR) 44 [facility] CenterNenokzuQLGLIUOGID4467-38-17 19:01:00 Test Item Value Reference Range Interpretation Comments Segs (test code = Segs) 67.6 45.0-75.0 [place]362-02-28 19:01:00 Test Item Value Reference Range Interpretation Comments Lymphocytes (test code = Lymphocytes) 12.9 20.0-40.0 [place] 519362-02-28 19:01:00 Test Item Value Reference Range Interpretation Comments Monocytes (test code = Monocytes) 15.1 2.0-12.0 [place]362-02-28 19:01:00 Test Item Value Reference Range Interpretation Comments Eosinophils (test code = 3.5 See_Comment [A utomated message] The Eosinophils) system which ge nerated this result tra nsmitted reference range : <=4.0. The reference r patria was not used to int erpret this result as normal/abnormal . [place]362-02-28 19:01:00 Test Item Value Reference Range Interpretation Comments Basophils (test code = 0.9 See_Comment [Aut omated message] The Basophils) system which ge nerated this result tra nsmitted reference range : <=1.0. The reference r patria was not used to int erpret this result as normal/abnormal . [facility] CenterAujiazpLZFYZXOOZI7697-30-64 19:01:00 Test Item Value Reference Range Interpretation Comments Neutrophils # (test code = Neutrophils 4.2 1.5-8.1 #) [facility] CenterRpmzjkbCEPUVHRABO3049-42-98 19:01:00 Test Item Value Reference Range Interpretation Comments Lymphocytes # (test code = Lymphocytes 0.8 1.0-5.5 #) [place] [address]-02-28 19:01:00 Test Item Value Reference Range Interpretation Comments Monocytes # (test code 0.9 See_Comment [Aut omated message] The = Monocytes #) system which generated this result tra nsmitted reference range : <=0.8. The reference r patria was not used to int erpret this result as normal/abnormal . [facility] CenterBhotkcbRFWDIXUNQV4157-32-08 19:01:00 Test Item Value Reference Range Interpretation Comments Eosinophils # (test code 0.2 See_Comment [A utomated message] The = Eosinophils #) system whic h generated this result tra nsmitted reference range : <=0.5. The reference r patria was not used to int erpret this result as normal/abnormal . [facility] CenterWppfjxaQCRMACNLJJ1123-18-08 19:01:00 Test Item Value Reference Range Interpretation Comments Basophils # (test code 0.1 See_Comment [Aut omated message] The = Basophils #) system which generated this result tra nsmitted reference range : <=0.2. The reference r patria was not used to int erpret this result as normal/abnormal . [facility] CenterHwvyvweGDMHXHDOVA3542-63-56 19:01:00 Test Item Value Reference Range Interpretation Comments WBC (test code = WBC) 6.2 3.7-10.4 [facility] CenterTfrikadSQOMOPEGXP8398-68-54 19:01:00 Test Item Value Reference Range Interpretation Comments RBC (test code = RBC) 3.07 4.20-5.40 [facility] CenterIlfschkQMFXPJJRAM3684-23-76 19:01:00 Test Item Value Reference Range Interpretation Comments MCV (test code = MCV) 93.8 80.0-98.0 [facility] CenterPalkkpcWHOBGAWGNN4190-53-69 19:01:00 Test Item Value Reference Range Interpretation Comments MCH (test code = MCH) 31.0 pg 27.0-31.0 [facility] CenterPhzdqftZZQQQCJYBR4403-57-81 19:01:00 Test Item Value Reference Range Interpretation Comments MCHC (test code = MCHC) 33.1 32.0-36.0 [facility] CenterWmunbyaDHQDTMOLAE7869-77-37 19:01:00 Test Item Value Reference Range Interpretation Comments RDW (test code = RDW) 15.9 11.5-14.5 [facility] CenterXgtcuztPHCUWNKWPA8862-17-88 19:01:00 Test Item Value Reference Range Interpretation Comments Platelet (test code = Platelet) 367 133-450 [facility] CenterBxjcufcNHYKRXPGCZ4971-27-37 19:01:00 Test Item Value Reference Range Interpretation Comments MPV (test code = MPV) 7.0 7.4-10.4 [facility] VMYKJ9939-52-71 19:01:00 Test Item Value Reference Range Interpretation Comments Glucose Lvl (test code = Glucose Lvl) 121 70-99 [facility] FJVVZ5524-99-49 19:01:00 Test Item Value Reference Range Interpretation Comments BUN (test code = BUN) 26 7-22 [place] 542562-02-28 19:01:00 Test Item Value Reference Range Interpretation Comments Creatinine Lvl (test code = Creatinine 1.15 0.50-1.40 Lvl) [facility]2022-02-28 19:01:00 Test Item Value Reference Range Interpretation Comments Sodium Lvl (test code = Sodium Lvl) 136 135-145 [place] 542562-02-28 19:01:00 Test Item Value Reference Range Interpretation Comments Potassium Lvl (test code = Potassium 4.8 3.5-5.1 Lvl) [place] 542562-02-28 19:01:00 Test Item Value Reference Range Interpretation Comments Chloride Lvl (test code = Chloride Lvl) 107 95-109 [place] 542562-02-28 19:01:00 Test Item Value Reference Range Interpretation Comments CO2 (test code = CO2) 25 24-32 [place] 542562-02-28 19:01:00 Test Item Value Reference Range Interpretation Comments Calcium Lvl (test code = Calcium Lvl) 9.0 8.5-10.5 [facility]2022-02-28 19:01:00 Test Item Value Reference Range Interpretation Comments AGAP (test code = AGAP) 8.8 10.0-20.0 [facility]2022-02-28 19:01:00 Test Item Value Reference Range Interpretation Comments eGFR (test code = eGFR) 44 [place]362-02-28 19:01:00 Test Item Value Reference Range Interpretation Comments Segs (test code = Segs) 67.6 45.0-75.0 [place] 519362-02-28 19:01:00 Test Item Value Reference Range Interpretation Comments Lymphocytes (test code = Lymphocytes) 12.9 20.0-40.0 [place] 519362-02-28 19:01:00 Test Item Value Reference Range Interpretation Comments Monocytes (test code = Monocytes) 15.1 2.0-12.0 [place] 519362-02-28 19:01:00 Test Item Value Reference Range Interpretation Comments Eosinophils (test code = 3.5 See_Comment [A utomated message] The Eosinophils) system which ge nerated this result tra nsmitted reference range : <=4.0. The reference r patria was not used to int erpret this result as normal/abnormal . [facility] CenterMkujjbiGVCSRVKRCP0065-85-37 19:01:00 Test Item Value Reference Range Interpretation Comments Basophils (test code = 0.9 See_Comment [Aut omated message] The Basophils) system which ge nerated this result tra nsmitted reference range : <=1.0. The reference r patria was not used to int erpret this result as normal/abnormal . [facility] CenterMpxlsiiWUCKUYPSUN8045-64-29 19:01:00 Test Item Value Reference Range Interpretation Comments Neutrophils # (test code = Neutrophils 4.2 1.5-8.1 #) [place] [address]362-02-28 19:01:00 Test Item Value Reference Range Interpretation Comments Lymphocytes # (test code = Lymphocytes 0.8 1.0-5.5 #) [place]362-02-28 19:01:00 Test Item Value Reference Range Interpretation Comments Monocytes # (test code 0.9 See_Comment [Aut omated message] The = Monocytes #) system which generated this result tra nsmitted reference range : <=0.8. The reference r patria was not used to int erpret this result as normal/abnormal . [facility] CenterDtvqdthTBIQQRAETH4327-54-68 19:01:00 Test Item Value Reference Range Interpretation Comments Eosinophils # (test code 0.2 See_Comment [A utomated message] The = Eosinophils #) system whic h generated this result tra nsmitted reference range : <=0.5. The reference r patria was not used to int erpret this result as normal/abnormal . [facility] CenterDdansyoTIKXQNLSQN4030-27-58 19:01:00 Test Item Value Reference Range Interpretation Comments Basophils # (test code 0.1 See_Comment [Aut omated message] The = Basophils #) system which generated this result tra nsmitted reference range : <=0.2. The reference r patria was not used to int erpret this result as normal/abnormal . [place] 519362-02-28 19:01:00 Test Item Value Reference Range Interpretation Comments WBC (test code = WBC) 6.2 3.7-10.4 [place] 519362-02-28 19:01:00 Test Item Value Reference Range Interpretation Comments RBC (test code = RBC) 3.07 4.20-5.40 [place]362-02-28 19:01:00 Test Item Value Reference Range Interpretation Comments MCV (test code = MCV) 93.8 80.0-98.0 [place] 519362-02-28 19:01:00 Test Item Value Reference Range Interpretation Comments MCH (test code = MCH) 31.0 pg 27.0-31.0 [place] 519362-02-28 19:01:00 Test Item Value Reference Range Interpretation Comments MCHC (test code = MCHC) 33.1 32.0-36.0 [place]362-02-28 19:01:00 Test Item Value Reference Range Interpretation Comments RDW (test code = RDW) 15.9 11.5-14.5 [place]362-02-28 19:01:00 Test Item Value Reference Range Interpretation Comments Platelet (test code = Platelet) 367 133-450 [facility] CenterVtmiqxdOWBIMAFKEW5394-45-64 19:01:00 Test Item Value Reference Range Interpretation Comments MPV (test code = MPV) 7.0 7.4-10.4 [facility]2022-02-28 19:01:00 Test Item Value Reference Range Interpretation Comments Glucose Lvl (test code = Glucose Lvl) 121 70-99 [facility]2022-02-28 19:01:00 Test Item Value Reference Range Interpretation Comments BUN (test code = BUN) 26 7-22 [place] 542562-02-28 19:01:00 Test Item Value Reference Range Interpretation Comments Creatinine Lvl (test code = Creatinine 1.15 0.50-1.40 Lvl) [place] 542562-02-28 19:01:00 Test Item Value Reference Range Interpretation Comments Sodium Lvl (test code = Sodium Lvl) 136 135-145 [place] 542562-02-28 19:01:00 Test Item Value Reference Range Interpretation Comments Potassium Lvl (test code = Potassium 4.8 3.5-5.1 Lvl) [place] 542562-02-28 19:01:00 Test Item Value Reference Range Interpretation Comments Chloride Lvl (test code = Chloride Lvl) 107 95-109 [place] 542562-02-28 19:01:00 Test Item Value Reference Range Interpretation Comments CO2 (test code = CO2) 25 24-32 [place] 542562-02-28 19:01:00 Test Item Value Reference Range Interpretation Comments Calcium Lvl (test code = Calcium Lvl) 9.0 8.5-10.5 [place] 542562-02-28 19:01:00 Test Item Value Reference Range Interpretation Comments AGAP (test code = AGAP) 8.8 10.0-20.0 [place] 542562-02-28 19:01:00 Test Item Value Reference Range Interpretation Comments eGFR (test code = eGFR) 44 [place] 519362-02-28 19:01:00 Test Item Value Reference Range Interpretation Comments Segs (test code = Segs) 67.6 45.0-75.0 [place]362-02-28 19:01:00 Test Item Value Reference Range Interpretation Comments Lymphocytes (test code = Lymphocytes) 12.9 20.0-40.0 [place]362-02-28 19:01:00 Test Item Value Reference Range Interpretation Comments Monocytes (test code = Monocytes) 15.1 2.0-12.0 [place]362-02-28 19:01:00 Test Item Value Reference Range Interpretation Comments Eosinophils (test code = 3.5 See_Comment [A utomated message] The Eosinophils) system which ge nerated this result tra nsmitted reference range : <=4.0. The reference r patria was not used to int erpret this result as normal/abnormal . [facility] CenterIrotrmnNPOOUVMYGC8617-61-63 19:01:00 Test Item Value Reference Range Interpretation Comments Basophils (test code = 0.9 See_Comment [Aut omated message] The Basophils) system which ge nerated this result tra nsmitted reference range : <=1.0. The reference r patria was not used to int erpret this result as normal/abnormal . [place]362-02-28 19:01:00 Test Item Value Reference Range Interpretation Comments Neutrophils # (test code = Neutrophils 4.2 1.5-8.1 #) [place] 519362-02-28 19:01:00 Test Item Value Reference Range Interpretation Comments Lymphocytes # (test code = Lymphocytes 0.8 1.0-5.5 #) [facility] CenterGqzturdEWMQZEUTQH0074-12-01 19:01:00 Test Item Value Reference Range Interpretation Comments Monocytes # (test code 0.9 See_Comment [Aut omated message] The = Monocytes #) system which generated this result tra nsmitted reference range : <=0.8. The reference r patria was not used to int erpret this result as normal/abnormal . [facility] CenterYaeekmkZEKVZKTDVF0216-32-21 19:01:00 Test Item Value Reference Range Interpretation Comments Eosinophils # (test code 0.2 See_Comment [A utomated message] The = Eosinophils #) system whic h generated this result tra nsmitted reference range : <=0.5. The reference r patria was not used to int erpret this result as normal/abnormal . [place]362-02-28 19:01:00 Test Item Value Reference Range Interpretation Comments Basophils # (test code 0.1 See_Comment [Aut omated message] The = Basophils #) system which generated this result tra nsmitted reference range : <=0.2. The reference r patria was not used to int erpret this result as normal/abnormal . [facility] CenterHmqlgowVZSOQOZYPF0861-75-38 19:01:00 Test Item Value Reference Range Interpretation Comments WBC (test code = WBC) 6.2 3.7-10.4 [place] 519362-02-28 19:01:00 Test Item Value Reference Range Interpretation Comments RBC (test code = RBC) 3.07 4.20-5.40 [place] 519362-02-28 19:01:00 Test Item Value Reference Range Interpretation Comments MCV (test code = MCV) 93.8 80.0-98.0 [place] 519362-02-28 19:01:00 Test Item Value Reference Range Interpretation Comments MCH (test code = MCH) 31.0 pg 27.0-31.0 [place] 519362-02-28 19:01:00 Test Item Value Reference Range Interpretation Comments MCHC (test code = MCHC) 33.1 32.0-36.0 [place] 519362-02-28 19:01:00 Test Item Value Reference Range Interpretation Comments RDW (test code = RDW) 15.9 11.5-14.5 [place] 519362-02-28 19:01:00 Test Item Value Reference Range Interpretation Comments Platelet (test code = Platelet) 367 133-450 [place] 519362-02-28 19:01:00 Test Item Value Reference Range Interpretation Comments MPV (test code = MPV) 7.0 7.4-10.4 [place] 542562-02-28 19:01:00 Test Item Value Reference Range Interpretation Comments Glucose Lvl (test code = Glucose Lvl) 121 70-99 [place] 542562-02-28 19:01:00 Test Item Value Reference Range Interpretation Comments BUN (test code = BUN) 26 7-22 [place] 542562-02-28 19:01:00 Test Item Value Reference Range Interpretation Comments Creatinine Lvl (test code = Creatinine 1.15 0.50-1.40 Lvl) [place] 542562-02-28 19:01:00 Test Item Value Reference Range Interpretation Comments Sodium Lvl (test code = Sodium Lvl) 136 135-145 [place] 542562-02-28 19:01:00 Test Item Value Reference Range Interpretation Comments Potassium Lvl (test code = Potassium 4.8 3.5-5.1 Lvl) [place] 542562-02-28 19:01:00 Test Item Value Reference Range Interpretation Comments Chloride Lvl (test code = Chloride Lvl) 107 95-109 [place] 542562-02-28 19:01:00 Test Item Value Reference Range Interpretation Comments CO2 (test code = CO2) 25 24-32 [place] 542562-02-28 19:01:00 Test Item Value Reference Range Interpretation Comments Calcium Lvl (test code = Calcium Lvl) 9.0 8.5-10.5 [place] 542562-02-28 19:01:00 Test Item Value Reference Range Interpretation Comments AGAP (test code = AGAP) 8.8 10.0-20.0 [place] 542562-02-28 19:01:00 Test Item Value Reference Range Interpretation Comments eGFR (test code = eGFR) 44 [place] 519362-02-28 19:01:00 Test Item Value Reference Range Interpretation Comments Segs (test code = Segs) 67.6 45.0-75.0 [facility] CenterJymujruUJDCNMVDLG2241-95-10 19:01:00 Test Item Value Reference Range Interpretation Comments Lymphocytes (test code = Lymphocytes) 12.9 20.0-40.0 [place] 519362-02-28 19:01:00 Test Item Value Reference Range Interpretation Comments Monocytes (test code = Monocytes) 15.1 2.0-12.0 [facility] CenterQxtbzwaNFDKDHRXXX0850-35-02 19:01:00 Test Item Value Reference Range Interpretation Comments Eosinophils (test code = 3.5 See_Comment [A utomated message] The Eosinophils) system which ge nerated this result tra nsmitted reference range : <=4.0. The reference r patria was not used to int erpret this result as normal/abnormal . [place]362-02-28 19:01:00 Test Item Value Reference Range Interpretation Comments Basophils (test code = 0.9 See_Comment [Aut omated message] The Basophils) system which ge nerated this result tra nsmitted reference range : <=1.0. The reference r patria was not used to int erpret this result as normal/abnormal . [facility] CenterPsmlcytEWDBLIRZAH9356-95-07 19:01:00 Test Item Value Reference Range Interpretation Comments Neutrophils # (test code = Neutrophils 4.2 1.5-8.1 #) [facility] CenterQepaonrUTDJEUTUME8454-02-69 19:01:00 Test Item Value Reference Range Interpretation Comments Lymphocytes # (test code = Lymphocytes 0.8 1.0-5.5 #) [place] 519362-02-28 19:01:00 Test Item Value Reference Range Interpretation Comments Monocytes # (test code 0.9 See_Comment [Aut omated message] The = Monocytes #) system which generated this result tra nsmitted reference range : <=0.8. The reference r patria was not used to int erpret this result as normal/abnormal . [facility] CenterBxsvursAVECUQPHHF5337-01-60 19:01:00 Test Item Value Reference Range Interpretation Comments Eosinophils # (test code 0.2 See_Comment [A utomated message] The = Eosinophils #) system [facility] h generated this result tra nsmitted reference range : <=0.5. The reference r patria was not used to int erpret this result as normal/abnormal . [facility]mklyziDCDAYTVHWO0503-68-79 19:01:00 Test Item Value Reference Range Interpretation Comments Basophils # (test code 0.1 See_Comment [Aut omated message] The = Basophils #) system which generated this result tra nsmitted reference range : <=0.2. The reference r patria was not used to int erpret this result as normal/abnormal . [facility]XxfmcxgIVZPLNJVLI2343-77-66 19:01:00 Test Item Value Reference Range Interpretation Comments WBC (test code = WBC) 6.2 3.7-10.4 [facility] CenterTprrzqyBNPZKKQQPX4053-74-58 19:01:00 Test Item Value Reference Range Interpretation Comments RBC (test code = RBC) 3.07 4.20-5.40 [facility] CenterHvjfaspMXPZGLLWQU8519-47-34 19:01:00 Test Item Value Reference Range Interpretation Comments MCV (test code = MCV) 93.8 80.0-98.0 [place] 519362-02-28 19:01:00 Test Item Value Reference Range Interpretation Comments MCH (test code = MCH) 31.0 pg 27.0-31.0 [facility] CenterFzsfcavILFIMINLSB5541-73-75 19:01:00 Test Item Value Reference Range Interpretation Comments MCHC (test code = MCHC) 33.1 32.0-36.0 [facility] CenterWufaarbRMDSSOVQDY2218-23-66 19:01:00 Test Item Value Reference Range Interpretation Comments RDW (test code = RDW) 15.9 11.5-14.5 [facility] CenterBnpqfycKLDDRPLXME6845-72-91 19:01:00 Test Item Value Reference Range Interpretation Comments Platelet (test code = Platelet) 367 133-450 [facility] CenterCqzpgwcXRDJSJZBPW6913-01-65 19:01:00 Test Item Value Reference Range Interpretation Comments MPV (test code = MPV) 7.0 7.4-10.4 [facility]2022-02-28 19:01:00 Test Item Value Reference Range Interpretation Comments Glucose Lvl (test code = Glucose Lvl) 121 70-99 [facility]2022-02-28 19:01:00 Test Item Value Reference Range Interpretation Comments BUN (test code = BUN) 26 7-22 [place] 542562-02-28 19:01:00 Test Item Value Reference Range Interpretation Comments Creatinine Lvl (test code = Creatinine 1.15 0.50-1.40 Lvl) [facility]2022-02-28 19:01:00 Test Item Value Reference Range Interpretation Comments Sodium Lvl (test code = Sodium Lvl) 136 135-145 [place] 542562-02-28 19:01:00 Test Item Value Reference Range Interpretation Comments Potassium Lvl (test code = Potassium 4.8 3.5-5.1 Lvl) [place] 542562-02-28 19:01:00 Test Item Value Reference Range Interpretation Comments Chloride Lvl (test code = Chloride Lvl) 107 95-109 [place] 542562-02-28 19:01:00 Test Item Value Reference Range Interpretation Comments CO2 (test code = CO2) 25 24-32 [place] 542562-02-28 19:01:00 Test Item Value Reference Range Interpretation Comments Calcium Lvl (test code = Calcium Lvl) 9.0 8.5-10.5 [facility]2022-02-28 19:01:00 Test Item Value Reference Range Interpretation Comments AGAP (test code = AGAP) 8.8 10.0-20.0 [facility]2022-02-28 19:01:00 Test Item Value Reference Range Interpretation Comments eGFR (test code = eGFR) 44 [facility]NzzsyxuTXBBLDOFKQ5427-45-32 19:01:00 Test Item Value Reference Range Interpretation Comments Segs (test code = Segs) 67.6 45.0-75.0 [facility] CenterZfkjjnoUOZJNAGPVB1099-00-68 19:01:00 Test Item Value Reference Range Interpretation Comments Lymphocytes (test code = Lymphocytes) 12.9 20.0-40.0 [place] 519362-02-28 19:01:00 Test Item Value Reference Range Interpretation Comments Monocytes (test code = Monocytes) 15.1 2.0-12.0 [facility] CenterCzdangyHRPDEQBPKO6660-53-05 19:01:00 Test Item Value Reference Range Interpretation Comments Eosinophils (test code = 3.5 See_Comment [A utomated message] The Eosinophils) system which ge nerated this result tra nsmitted reference range : <=4.0. The reference r patria was not used to int erpret this result as normal/abnormal . [place] 519362-02-28 19:01:00 Test Item Value Reference Range Interpretation Comments Basophils (test code = 0.9 See_Comment [Aut omated message] The Basophils) system which ge nerated this result tra nsmitted reference range : <=1.0. The reference r patria was not used to int erpret this result as normal/abnormal . [place] 519362-02-28 19:01:00 Test Item Value Reference Range Interpretation Comments Neutrophils # (test code = Neutrophils 4.2 1.5-8.1 #) [place] 519362-02-28 19:01:00 Test Item Value Reference Range Interpretation Comments Lymphocytes # (test code = Lymphocytes 0.8 1.0-5.5 #) [place] 519362-02-28 19:01:00 Test Item Value Reference Range Interpretation Comments Monocytes # (test code 0.9 See_Comment [Aut omated message] The = Monocytes #) system which generated this result tra nsmitted reference range : <=0.8. The reference r patria was not used to int erpret this result as normal/abnormal . [facility] CenterNyilsyiGTBHUQFXQN4355-99-77 19:01:00 Test Item Value Reference Range Interpretation Comments Eosinophils # (test code 0.2 See_Comment [A utomated message] The = Eosinophils #) system whic h generated this result tra nsmitted reference range : <=0.5. The reference r patria was not used to int erpret this result as normal/abnormal . [facility] CenterFsfrlglFMBFCKXJIR6279-15-85 19:01:00 Test Item Value Reference Range Interpretation Comments Basophils # (test code 0.1 See_Comment [Aut omated message] The = Basophils #) system which generated this result tra nsmitted reference range : <=0.2. The reference r patria was not used to int erpret this result as normal/abnormal . [facility] CenterCbmbciiVKWCXITUKL0439-23-13 19:01:00 Test Item Value Reference Range Interpretation Comments WBC (test code = WBC) 6.2 3.7-10.4 [place] 519362-02-28 19:01:00 Test Item Value Reference Range Interpretation Comments RBC (test code = RBC) 3.07 4.20-5.40 [place] 519362-02-28 19:01:00 Test Item Value Reference Range Interpretation Comments MCV (test code = MCV) 93.8 80.0-98.0 [place] 519362-02-28 19:01:00 Test Item Value Reference Range Interpretation Comments MCH (test code = MCH) 31.0 pg 27.0-31.0 [facility] CenterSxedqiyYHTTSTVBOF9137-81-89 19:01:00 Test Item Value Reference Range Interpretation Comments MCHC (test code = MCHC) 33.1 32.0-36.0 [facility] CenterDearftgKQUKXWQIZW7141-47-55 19:01:00 Test Item Value Reference Range Interpretation Comments RDW (test code = RDW) 15.9 11.5-14.5 [place] 519362-02-28 19:01:00 Test Item Value Reference Range Interpretation Comments Platelet (test code = Platelet) 367 133-450 [facility] CenterJpolbwnRODVLPIGBI6797-22-35 19:01:00 Test Item Value Reference Range Interpretation Comments MPV (test code = MPV) 7.0 7.4-10.4 [facility]2022-02-28 19:01:00 Test Item Value Reference Range Interpretation Comments Glucose Lvl (test code = Glucose Lvl) 121 70-99 [facility]2022-02-28 19:01:00 Test Item Value Reference Range Interpretation Comments BUN (test code = BUN) 26 7-22 [facility]2022-02-28 19:01:00 Test Item Value Reference Range Interpretation Comments Creatinine Lvl (test code = Creatinine 1.15 0.50-1.40 Lvl) [facility]2022-02-28 19:01:00 Test Item Value Reference Range Interpretation Comments Sodium Lvl (test code = Sodium Lvl) 136 135-145 [facility]2022-02-28 19:01:00 Test Item Value Reference Range Interpretation Comments Potassium Lvl (test code = Potassium 4.8 3.5-5.1 Lvl) [facility]2022-02-28 19:01:00 Test Item Value Reference Range Interpretation Comments Chloride Lvl (test code = Chloride Lvl) 107 95-109 [place] 542562-02-28 19:01:00 Test Item Value Reference Range Interpretation Comments CO2 (test code = CO2) 25 24-32 [place] 542562-02-28 19:01:00 Test Item Value Reference Range Interpretation Comments Calcium Lvl (test code = Calcium Lvl) 9.0 8.5-10.5 [place] 542562-02-28 19:01:00 Test Item Value Reference Range Interpretation Comments AGAP (test code = AGAP) 8.8 10.0-20.0 [place] 542562-02-28 19:01:00 Test Item Value Reference Range Interpretation Comments eGFR (test code = eGFR) 44 [place] 519362-02-28 19:01:00 Test Item Value Reference Range Interpretation Comments Segs (test code = Segs) 67.6 45.0-75.0 [place] 519362-02-28 19:01:00 Test Item Value Reference Range Interpretation Comments Lymphocytes (test code = Lymphocytes) 12.9 20.0-40.0 [place] 519362-02-28 19:01:00 Test Item Value Reference Range Interpretation Comments Monocytes (test code = Monocytes) 15.1 2.0-12.0 [place] 519362-02-28 19:01:00 Test Item Value Reference Range Interpretation Comments Eosinophils (test code = 3.5 See_Comment [A utomated message] The Eosinophils) system which ge nerated this result tra nsmitted reference range : <=4.0. The reference r patria was not used to int erpret this result as normal/abnormal . [facility] CenterGmchyelTWWLYAUHIG0422-99-79 19:01:00 Test Item Value Reference Range Interpretation Comments Basophils (test code = 0.9 See_Comment [Aut omated message] The Basophils) system which ge nerated this result tra nsmitted reference range : <=1.0. The reference r patria was not used to int erpret this result as normal/abnormal . [place] 519362-02-28 19:01:00 Test Item Value Reference Range Interpretation Comments Neutrophils # (test code = Neutrophils 4.2 1.5-8.1 #) [place] 519362-02-28 19:01:00 Test Item Value Reference Range Interpretation Comments Lymphocytes # (test code = Lymphocytes 0.8 1.0-5.5 #) [place] 519362-02-28 19:01:00 Test Item Value Reference Range Interpretation Comments Monocytes # (test code 0.9 See_Comment [Aut omated message] The = Monocytes #) system which generated this result tra nsmitted reference range : <=0.8. The reference r patria was not used to int erpret this result as normal/abnormal . [facility] CenterXpobivpYBSXYRBXQZ5478-97-26 19:01:00 Test Item Value Reference Range Interpretation Comments Eosinophils # (test code 0.2 See_Comment [A utomated message] The = Eosinophils #) system whic h generated this result tra nsmitted reference range : <=0.5. The reference r patria was not used to int erpret this result as normal/abnormal . [facility] CenterDhacoisSOCRALDOKB0933-74-65 19:01:00 Test Item Value Reference Range Interpretation Comments Basophils # (test code 0.1 See_Comment [Aut omated message] The = Basophils #) system which generated this result tra nsmitted reference range : <=0.2. The reference r patria was not used to int erpret this result as normal/abnormal . [facility] CenterRqdgymrPSLMHYCHZX0901-15-74 19:01:00 Test Item Value Reference Range Interpretation Comments WBC (test code = WBC) 6.2 3.7-10.4 [facility] CenterQulrwgaYGIUGZWORG3486-97-20 19:01:00 Test Item Value Reference Range Interpretation Comments RBC (test code = RBC) 3.07 4.20-5.40 [facility] CenterQpcgwtoRPUCDLJMJG4496-47-05 19:01:00 Test Item Value Reference Range Interpretation Comments MCV (test code = MCV) 93.8 80.0-98.0 [facility] CenterEegkgzcXXJVDPDMJY6044-10-08 19:01:00 Test Item Value Reference Range Interpretation Comments MCH (test code = MCH) 31.0 pg 27.0-31.0 [place] 519362-02-28 19:01:00 Test Item Value Reference Range Interpretation Comments MCHC (test code = MCHC) 33.1 32.0-36.0 [facility] CenterGhaqbopYPCAUCZFUS2785-09-95 19:01:00 Test Item Value Reference Range Interpretation Comments RDW (test code = RDW) 15.9 11.5-14.5 [facility] CenterVaynbvdWSEBIJCESF5632-82-10 19:01:00 Test Item Value Reference Range Interpretation Comments Platelet (test code = Platelet) 367 133-450 [place] 519362-02-28 19:01:00 Test Item Value Reference Range Interpretation Comments MPV (test code = MPV) 7.0 7.4-10.4 [facility]2022-02-28 19:01:00 Test Item Value Reference Range Interpretation Comments Glucose Lvl (test code = Glucose Lvl) 121 70-99 [place] 542562-02-28 19:01:00 Test Item Value Reference Range Interpretation Comments BUN (test code = BUN) 26 7-22 [place] 542562-02-28 19:01:00 Test Item Value Reference Range Interpretation Comments Creatinine Lvl (test code = Creatinine 1.15 0.50-1.40 Lvl) [place] 542562-02-28 19:01:00 Test Item Value Reference Range Interpretation Comments Sodium Lvl (test code = Sodium Lvl) 136 135-145 [place] 542562-02-28 19:01:00 Test Item Value Reference Range Interpretation Comments Potassium Lvl (test code = Potassium 4.8 3.5-5.1 Lvl) [facility]2022-02-28 19:01:00 Test Item Value Reference Range Interpretation Comments Chloride Lvl (test code = Chloride Lvl) 107 95-109 [place] 542562-02-28 19:01:00 Test Item Value Reference Range Interpretation Comments CO2 (test code = CO2) 25 24-32 [place] 542562-02-28 19:01:00 Test Item Value Reference Range Interpretation Comments Calcium Lvl (test code = Calcium Lvl) 9.0 8.5-10.5 [place] 542562-02-28 19:01:00 Test Item Value Reference Range Interpretation Comments AGAP (test code = AGAP) 8.8 10.0-20.0 [place] 542562-02-28 19:01:00 Test Item Value Reference Range Interpretation Comments eGFR (test code = eGFR) 44 [place] 519362-02-28 19:01:00 Test Item Value Reference Range Interpretation Comments Segs (test code = Segs) 67.6 45.0-75.0 [place] 519362-02-28 19:01:00 Test Item Value Reference Range Interpretation Comments Lymphocytes (test code = Lymphocytes) 12.9 20.0-40.0 [facility] CenterLvxqpftYXWDGZWYKX6878-57-26 19:01:00 Test Item Value Reference Range Interpretation Comments Monocytes (test code = Monocytes) 15.1 2.0-12.0 [facility] CenterQacqrrfFBTPCUWKQB6311-34-00 19:01:00 Test Item Value Reference Range Interpretation Comments Eosinophils (test code = 3.5 See_Comment [A utomated message] The Eosinophils) system which ge nerated this result tra nsmitted reference range : <=4.0. The reference r patria was not used to int erpret this result as normal/abnormal . [facility] CenterEchikkqFKSJBJAGMG7792-29-55 19:01:00 Test Item Value Reference Range Interpretation Comments Basophils (test code = 0.9 See_Comment [Aut omated message] The Basophils) system which ge nerated this result tra nsmitted reference range : <=1.0. The reference r patria was not used to int erpret this result as normal/abnormal . [facility] CenterGiclpcfCDJGQFQZOV9609-88-09 19:01:00 Test Item Value Reference Range Interpretation Comments Neutrophils # (test code = Neutrophils 4.2 1.5-8.1 #) [facility] CenterPcuardfPDEDSWLUDT9971-63-20 19:01:00 Test Item Value Reference Range Interpretation Comments Lymphocytes # (test code = Lymphocytes 0.8 1.0-5.5 #) [facility] CenterIowryouXFWVWBUYLH6367-93-60 19:01:00 Test Item Value Reference Range Interpretation Comments Monocytes # (test code 0.9 See_Comment [Aut omated message] The = Monocytes #) system which generated this result tra nsmitted reference range : <=0.8. The reference r patria was not used to int erpret this result as normal/abnormal . [facility] CenterFdfpjnuXZUPZOLTOE7307-98-92 19:01:00 Test Item Value Reference Range Interpretation Comments Eosinophils # (test code 0.2 See_Comment [A utomated message] The = Eosinophils #) system wh h generated this result tra nsmitted reference range : <=0.5. The reference r patria was not used to int erpret this result as normal/abnormal . [facility] CenterKhyppmqBJKFHPAOMU7923-13-37 19:01:00 Test Item Value Reference Range Interpretation Comments Basophils # (test code 0.1 See_Comment [Aut omated message] The = Basophils #) system which generated this result tra nsmitted reference range : <=0.2. The reference r patria was not used to int erpret this result as normal/abnormal . [facility] CenterEdgecjnESYUYEBFWR5822-95-27 19:01:00 Test Item Value Reference Range Interpretation Comments WBC (test code = WBC) 6.2 3.7-10.4 [facility] CenterNunuuxmPPGXOBRYXP4699-22-62 19:01:00 Test Item Value Reference Range Interpretation Comments RBC (test code = RBC) 3.07 4.20-5.40 [facility] CenterOowjjjmVMGYZOQSAW8561-82-86 19:01:00 Test Item Value Reference Range Interpretation Comments MCV (test code = MCV) 93.8 80.0-98.0 [facility] CenterQdaxedrQUPEWSPHGY3819-79-57 19:01:00 Test Item Value Reference Range Interpretation Comments MCH (test code = MCH) 31.0 pg 27.0-31.0 [facility] CenterZqwvkwxWQVVUWNLRJ2412-23-65 19:01:00 Test Item Value Reference Range Interpretation Comments MCHC (test code = MCHC) 33.1 32.0-36.0 [facility] CenterDogaqgvUEPXBLVJPX0596-88-81 19:01:00 Test Item Value Reference Range Interpretation Comments RDW (test code = RDW) 15.9 11.5-14.5 [facility] CenterJipwdceOHYIWBRBWD4528-16-82 19:01:00 Test Item Value Reference Range Interpretation Comments Platelet (test code = Platelet) 367 133-450 [facility] CenterZnyiyydRHICDYRWKU5264-03-26 19:01:00 Test Item Value Reference Range Interpretation Comments MPV (test code = MPV) 7.0 7.4-10.4 [facility]2022-02-28 19:01:00 Test Item Value Reference Range Interpretation Comments Glucose Lvl (test code = Glucose Lvl) 121 70-99 [facility]2022-02-28 19:01:00 Test Item Value Reference Range Interpretation Comments BUN (test code = BUN) 26 7-22 [place] 542562-02-28 19:01:00 Test Item Value Reference Range Interpretation Comments Creatinine Lvl (test code = Creatinine 1.15 0.50-1.40 Lvl) [place] 542562-02-28 19:01:00 Test Item Value Reference Range Interpretation Comments Sodium Lvl (test code = Sodium Lvl) 136 135-145 [place] 542562-02-28 19:01:00 Test Item Value Reference Range Interpretation Comments Potassium Lvl (test code = Potassium 4.8 3.5-5.1 Lvl) [place] 542562-02-28 19:01:00 Test Item Value Reference Range Interpretation Comments Chloride Lvl (test code = Chloride Lvl) 107 95-109 [place] 542562-02-28 19:01:00 Test Item Value Reference Range Interpretation Comments CO2 (test code = CO2) 25 24-32 [place] 542562-02-28 19:01:00 Test Item Value Reference Range Interpretation Comments Calcium Lvl (test code = Calcium Lvl) 9.0 8.5-10.5 [place] 542562-02-28 19:01:00 Test Item Value Reference Range Interpretation Comments AGAP (test code = AGAP) 8.8 10.0-20.0 [place] 542562-02-28 19:01:00 Test Item Value Reference Range Interpretation Comments eGFR (test code = eGFR) 44 [place] 519362-02-28 19:01:00 Test Item Value Reference Range Interpretation Comments Segs (test code = Segs) 67.6 45.0-75.0 [place] 519362-02-28 19:01:00 Test Item Value Reference Range Interpretation Comments Lymphocytes (test code = Lymphocytes) 12.9 20.0-40.0 [place] 519362-02-28 19:01:00 Test Item Value Reference Range Interpretation Comments Monocytes (test code = Monocytes) 15.1 2.0-12.0 [place] [address]-02-28 19:01:00 Test Item Value Reference Range Interpretation Comments Eosinophils (test code = 3.5 See_Comment [A utomated message] The Eosinophils) system which ge nerated this result tra nsmitted reference range : <=4.0. The reference r patria was not used to int erpret this result as normal/abnormal . [place] 519362-02-28 19:01:00 Test Item Value Reference Range Interpretation Comments Basophils (test code = 0.9 See_Comment [Aut omated message] The Basophils) system which ge nerated this result tra nsmitted reference range : <=1.0. The reference r patria was not used to int erpret this result as normal/abnormal . [facility] CenterLytszmvJOGOSBIYML4358-26-94 19:01:00 Test Item Value Reference Range Interpretation Comments Neutrophils # (test code = Neutrophils 4.2 1.5-8.1 #) [facility] CenterCysbnzpOYARPTRWBX7191-38-76 19:01:00 Test Item Value Reference Range Interpretation Comments Lymphocytes # (test code = Lymphocytes 0.8 1.0-5.5 #) [facility] CenterSstkzwjRMZNLFKVCG8636-16-34 19:01:00 Test Item Value Reference Range Interpretation Comments Monocytes # (test code 0.9 See_Comment [Aut omated message] The = Monocytes #) system which generated this result tra nsmitted reference range : <=0.8. The reference r patria was not used to int erpret this result as normal/abnormal . [facility] CenterGnnwadiKQMSWTBODI1378-12-01 19:01:00 Test Item Value Reference Range Interpretation Comments Eosinophils # (test code 0.2 See_Comment [A utomated message] The = Eosinophils #) system whic h generated this result tra nsmitted reference range : <=0.5. The reference r patria was not used to int erpret this result as normal/abnormal . [facility] CenterBotwxtdUNPMTYPYTI0189-05-75 19:01:00 Test Item Value Reference Range Interpretation Comments Basophils # (test code 0.1 See_Comment [Aut omated message] The = Basophils #) system which generated this result tra nsmitted reference range : <=0.2. The reference r patria was not used to int erpret this result as normal/abnormal . [facility] CenterOralaniBKNKSXKIAM9339-01-69 19:01:00 Test Item Value Reference Range Interpretation Comments WBC (test code = WBC) 6.2 3.7-10.4 [facility] CenterMzxxuhuNLLMNMNQYA4205-69-00 19:01:00 Test Item Value Reference Range Interpretation Comments RBC (test code = RBC) 3.07 4.20-5.40 [place] 519362-02-28 19:01:00 Test Item Value Reference Range Interpretation Comments MCV (test code = MCV) 93.8 80.0-98.0 [place] 519362-02-28 19:01:00 Test Item Value Reference Range Interpretation Comments MCH (test code = MCH) 31.0 pg 27.0-31.0 [place] 519362-02-28 19:01:00 Test Item Value Reference Range Interpretation Comments MCHC (test code = MCHC) 33.1 32.0-36.0 [place] 519362-02-28 19:01:00 Test Item Value Reference Range Interpretation Comments RDW (test code = RDW) 15.9 11.5-14.5 [place] 519362-02-28 19:01:00 Test Item Value Reference Range Interpretation Comments Platelet (test code = Platelet) 367 133-450 [place] 519362-02-28 19:01:00 Test Item Value Reference Range Interpretation Comments MPV (test code = MPV) 7.0 7.4-10.4 [place] 542562-02-28 19:01:00 Test Item Value Reference Range Interpretation Comments Glucose Lvl (test code = Glucose Lvl) 121 70-99 [place] 542562-02-28 19:01:00 Test Item Value Reference Range Interpretation Comments BUN (test code = BUN) 26 7-22 [place] 542562-02-28 19:01:00 Test Item Value Reference Range Interpretation Comments Creatinine Lvl (test code = Creatinine 1.15 0.50-1.40 Lvl) [place] 542562-02-28 19:01:00 Test Item Value Reference Range Interpretation Comments Sodium Lvl (test code = Sodium Lvl) 136 135-145 [place] 542562-02-28 19:01:00 Test Item Value Reference Range Interpretation Comments Potassium Lvl (test code = Potassium 4.8 3.5-5.1 Lvl) [place] 542562-02-28 19:01:00 Test Item Value Reference Range Interpretation Comments Chloride Lvl (test code = Chloride Lvl) 107 95-109 [place] 542562-02-28 19:01:00 Test Item Value Reference Range Interpretation Comments CO2 (test code = CO2) 25 24-32 [place] 542562-02-28 19:01:00 Test Item Value Reference Range Interpretation Comments Calcium Lvl (test code = Calcium Lvl) 9.0 8.5-10.5 [place] 542562-02-28 19:01:00 Test Item Value Reference Range Interpretation Comments AGAP (test code = AGAP) 8.8 10.0-20.0 [place] 542562-02-28 19:01:00 Test Item Value Reference Range Interpretation Comments eGFR (test code = eGFR) 44 [place] 519362-02-28 19:01:00 Test Item Value Reference Range Interpretation Comments Segs (test code = Segs) 67.6 45.0-75.0 [place] 519362-02-28 19:01:00 Test Item Value Reference Range Interpretation Comments Lymphocytes (test code = Lymphocytes) 12.9 20.0-40.0 [place] [address]-02-28 19:01:00 Test Item Value Reference Range Interpretation Comments Monocytes (test code = Monocytes) 15.1 2.0-12.0 [place] 519362-02-28 19:01:00 Test Item Value Reference Range Interpretation Comments Eosinophils (test code = 3.5 See_Comment [A utomated message] The Eosinophils) system which ge nerated this result tra nsmitted reference range : <=4.0. The reference r patria was not used to int erpret this result as normal/abnormal . [place] 519362-02-28 19:01:00 Test Item Value Reference Range Interpretation Comments Basophils (test code = 0.9 See_Comment [Aut omated message] The Basophils) system which ge nerated this result tra nsmitted reference range : <=1.0. The reference r patria was not used to int erpret this result as normal/abnormal . [place] 519362-02-28 19:01:00 Test Item Value Reference Range Interpretation Comments Neutrophils # (test code = Neutrophils 4.2 1.5-8.1 #) [place] [address]-02-28 19:01:00 Test Item Value Reference Range Interpretation Comments Lymphocytes # (test code = Lymphocytes 0.8 1.0-5.5 #) [place] [address]-02-28 19:01:00 Test Item Value Reference Range Interpretation Comments Monocytes # (test code 0.9 See_Comment [Aut omated message] The = Monocytes #) system which generated this result tra nsmitted reference range : <=0.8. The reference r patria was not used to int erpret this result as normal/abnormal . [facility]:00 Test Item Value Reference Range Interpretation Comments Eosinophils # (test code 0.2 See_Comment [A utomated message] The = Eosinophils #) system whic h generated this result tra nsmitted reference range : <=0.5. The reference r patria was not used to int erpret this result as normal/abnormal . [facility]CA[facility]53[facility] 19:01:00 Test Item Value Reference Range Interpretation Comments Basophils # (test code 0.1 See_Comment [Aut omated message] The = Basophils #) system which generated this result tra nsmitted reference range : <=0.2. The reference r patria was not used to int erpret this result as normal/abnormal . [facility]ct[facility]ky[facility]ZXJYJJWZL9352[facility]79-84 19:01:00 Test Item Value Reference Range Interpretation Comments WBC (test code = WBC) 6.2 3.7-10.4 [facility]iwh[facility]OLMQVDTIUQ3842-32-96 19:01:00 Test Item Value Reference Range Interpretation Comments RBC (test code = RBC) 3.07 4.20-5.40 [facility]MjexvckVUTWQRUGCS4975-52-63 19:01:00 Test Item Value Reference Range Interpretation Comments MCV (test code = MCV) 93.8 80.0-98.0 [facility]swueqzDRQQXPXAQR8362-97-43 19:01:00 Test Item Value Reference Range Interpretation Comments MCH (test code = MCH) 31.0 pg 27.0-31.0 [facility]CgeffatQKTWLAFSCB9393-68-26 19:01:00 Test Item Value Reference Range Interpretation Comments MCHC (test code = MCHC) 33.1 32.0-36.0 [facility]YmmfxmiAQBZNZWXZK5877-64-80 19:01:00 Test Item Value Reference Range Interpretation Comments RDW (test code = RDW) 15.9 11.5-14.5 [place] 519362-02-28 19:01:00 Test Item Value Reference Range Interpretation Comments Platelet (test code = Platelet) 367 133-450 [facility]TzlaxcdZLYZLIERBK5416-84-62 19:01:00 Test Item Value Reference Range Interpretation Comments MPV (test code = MPV) 7.0 7.4-10.4 [place] 542562-02-28 19:01:00 Test Item Value Reference Range Interpretation Comments Glucose Lvl (test code = Glucose Lvl) 121 70-99 [place] 542562-02-28 19:01:00 Test Item Value Reference Range Interpretation Comments BUN (test code = BUN) 26 7-22 [place] 542562-02-28 19:01:00 Test Item Value Reference Range Interpretation Comments Creatinine Lvl (test code = Creatinine 1.15 0.50-1.40 Lvl) [place] 542562-02-28 19:01:00 Test Item Value Reference Range Interpretation Comments Sodium Lvl (test code = Sodium Lvl) 136 135-145 [place] 542562-02-28 19:01:00 Test Item Value Reference Range Interpretation Comments Potassium Lvl (test code = Potassium 4.8 3.5-5.1 Lvl) [place] 542562-02-28 19:01:00 Test Item Value Reference Range Interpretation Comments Chloride Lvl (test code = Chloride Lvl) 107 95-109 [place] 542562-02-28 19:01:00 Test Item Value Reference Range Interpretation Comments CO2 (test code = CO2) 25 24-32 [place] 542562-02-28 19:01:00 Test Item Value Reference Range Interpretation Comments Calcium Lvl (test code = Calcium Lvl) 9.0 8.5-10.5 [facility]2022-02-28 19:01:00 Test Item Value Reference Range Interpretation Comments AGAP (test code = AGAP) 8.8 10.0-20.0 [place] 542562-02-28 19:01:00 Test Item Value Reference Range Interpretation Comments eGFR (test code = eGFR) 44 [place] 519362-02-28 19:01:00 Test Item Value Reference Range Interpretation Comments Segs (test code = Segs) 67.6 45.0-75.0 [place] 519362-02-28 19:01:00 Test Item Value Reference Range Interpretation Comments Lymphocytes (test code = Lymphocytes) 12.9 20.0-40.0 [place] 519362-02-28 19:01:00 Test Item Value Reference Range Interpretation Comments Monocytes (test code = Monocytes) 15.1 2.0-12.0 [place] 519362-02-28 19:01:00 Test Item Value Reference Range Interpretation Comments Eosinophils (test code = 3.5 See_Comment [A utomated message] The Eosinophils) system which ge nerated this result tra nsmitted reference range : <=4.0. The reference r patria was not used to int erpret this result as normal/abnormal . [place] [address]-02-28 19:01:00 Test Item Value Reference Range Interpretation Comments Basophils (test code = 0.9 See_Comment [Aut omated message] The Basophils) system which ge nerated this result tra nsmitted reference range : <=1.0. The reference r patria was not used to int erpret this result as normal/abnormal . [place] 519362-02-28 19:01:00 Test Item Value Reference Range Interpretation Comments Neutrophils # (test code = Neutrophils 4.2 1.5-8.1 #) [place] 519362-02-28 19:01:00 Test Item Value Reference Range Interpretation Comments Lymphocytes # (test code = Lymphocytes 0.8 1.0-5.5 #) [place] [address]-02-28 19:01:00 Test Item Value Reference Range Interpretation Comments Monocytes # (test code 0.9 See_Comment [Aut omated message] The = Monocytes #) system which generated this result tra nsmitted reference range : <=0.8. The reference r patria was not used to int erpret this result as normal/abnormal . [place] 519362-02-28 19:01:00 Test Item Value Reference Range Interpretation Comments Eosinophils # (test code 0.2 See_Comment [A utomated message] The = Eosinophils #) system whic h generated this result tra nsmitted reference range : <=0.5. The reference r patria was not used to int erpret this result as normal/abnormal . [place] [address]-02-28 19:01:00 Test Item Value Reference Range Interpretation Comments Basophils # (test code 0.1 See_Comment [Aut omated message] The = Basophils #) system which generated this result tra nsmitted reference range : <=0.2. The reference r patria was not used to int erpret this result as normal/abnormal . [place] 519362-02-28 19:01:00 Test Item Value Reference Range Interpretation Comments WBC (test code = WBC) 6.2 3.7-10.4 [place] [address]-02-28 19:01:00 Test Item Value Reference Range Interpretation Comments RBC (test code = RBC) 3.07 4.20-5.40 [place] 519362-02-28 19:01:00 Test Item Value Reference Range Interpretation Comments MCV (test code = MCV) 93.8 80.0-98.0 [place] 519362-02-28 19:01:00 Test Item Value Reference Range Interpretation Comments MCH (test code = MCH) 31.0 pg 27.0-31.0 [place] 519362-02-28 19:01:00 Test Item Value Reference Range Interpretation Comments MCHC (test code = MCHC) 33.1 32.0-36.0 [place] 519362-02-28 19:01:00 Test Item Value Reference Range Interpretation Comments RDW (test code = RDW) 15.9 11.5-14.5 [facility]WxmendtSLAXSGAFOG7074-80-92 19:01:00 Test Item Value Reference Range Interpretation Comments Platelet (test code = Platelet) 367 133-450 [facility]WaomxluFFECPDDFXC5398-68-42 19:01:00 Test Item Value Reference Range Interpretation Comments MPV (test code = MPV) 7.0 7.4-10.4 [facility]2022-02-28 10:53:00 Test Item Value Reference Range Interpretation Comments Glucose Lvl (test code = Glucose Lvl) 95 70-99 [facility]2022-02-28 10:53:00 Test Item Value Reference Range Interpretation Comments BUN (test code = BUN) 26 7-22 [place] 542562-02-28 10:53:00 Test Item Value Reference Range Interpretation Comments Creatinine Lvl (test code = Creatinine 0.98 0.50-1.40 Lvl) [facility]2022-02-28 10:53:00 Test Item Value Reference Range Interpretation Comments Sodium Lvl (test code = Sodium Lvl) 137 135-145 [facility]2022-02-28 10:53:00 Test Item Value Reference Range Interpretation Comments Potassium Lvl (test code = Potassium 5.2 3.5-5.1 Lvl) [facility]2022-02-28 10:53:00 Test Item Value Reference Range Interpretation Comments Chloride Lvl (test code = Chloride Lvl) 107 95-109 [place] 542562-02-28 10:53:00 Test Item Value Reference Range Interpretation Comments CO2 (test code = CO2) [facility]2022-02-28 10:53:00 Test Item Value Reference Range Interpretation Comments Calcium Lvl (test code = Calcium Lvl) 8.2 8.5-10.5 [facility]2022-02-28 10:53:00 Test Item Value Reference Range Interpretation Comments AGAP (test code = AGAP) 10.2 10.0-20.0 [facility]2022-02-28 10:53:00 Test Item Value Reference Range Interpretation Comments eGFR (test code = eGFR) 54 [facility]2022-02-28 10:53:00 Test Item Value Reference Range Interpretation Comments Glucose Lvl (test code = Glucose Lvl) 95 70-99 [facility]2022-02-28 10:53:00 Test Item Value Reference Range Interpretation Comments BUN (test code = BUN) 06-01 [facility]2022-02-28 10:53:00 Test Item Value Reference Range Interpretation Comments Creatinine Lvl (test code = Creatinine 0.98 0.50-1.40 Lvl) [facility]2022-02-28 10:53:00 Test Item Value Reference Range Interpretation Comments Sodium Lvl (test code = Sodium Lvl) 137 135-145 [facility]2022-02-28 10:53:00 Test Item Value Reference Range Interpretation Comments Potassium Lvl (test code = Potassium 5.2 3.5-5.1 Lvl) [facility]2022-02-28 10:53:00 Test Item Value Reference Range Interpretation Comments Chloride Lvl (test code = Chloride Lvl) 107 95-109 [place] 542562-02-28 10:53:00 Test Item Value Reference Range Interpretation Comments CO2 (test code = CO2) [place] 542562-02-28 10:53:00 Test Item Value Reference Range Interpretation Comments Calcium Lvl (test code = Calcium Lvl) 8.2 8.5-10.5 [place] 542562-02-28 10:53:00 Test Item Value Reference Range Interpretation Comments AGAP (test code = AGAP) 10.2 10.0-20.0 [place] 542562-02-28 10:53:00 Test Item Value Reference Range Interpretation Comments eGFR (test code = eGFR) 54 [place] 542562-02-28 10:53:00 Test Item Value Reference Range Interpretation Comments Glucose Lvl (test code = Glucose Lvl) 95 70-99 [place] 542562-02-28 10:53:00 Test Item Value Reference Range Interpretation Comments BUN (test code = BUN) 06-01 [place] 542562-02-28 10:53:00 Test Item Value Reference Range Interpretation Comments Creatinine Lvl (test code = Creatinine 0.98 0.50-1.40 Lvl) [facility]2022-02-28 10:53:00 Test Item Value Reference Range Interpretation Comments Sodium Lvl (test code = Sodium Lvl) 137 135-145 [place] 542562-02-28 10:53:00 Test Item Value Reference Range Interpretation Comments Potassium Lvl (test code = Potassium 5.2 3.5-5.1 Lvl) [place] 542562-02-28 10:53:00 Test Item Value Reference Range Interpretation Comments Chloride Lvl (test code = Chloride Lvl) 107 95-109 [place] 542562-02-28 10:53:00 Test Item Value Reference Range Interpretation Comments CO2 (test code = CO2) - [place] 542562-02-28 10:53:00 Test Item Value Reference Range Interpretation Comments Calcium Lvl (test code = Calcium Lvl) 8.2 8.5-10.5 [facility]2022-02-28 10:53:00 Test Item Value Reference Range Interpretation Comments AGAP (test code = AGAP) 10.2 10.0-20.0 [place] 542562-02-28 10:53:00 Test Item Value Reference Range Interpretation Comments eGFR (test code = eGFR) 54 [facility]2022-02-28 10:53:00 Test Item Value Reference Range Interpretation Comments Glucose Lvl (test code = Glucose Lvl) 95 70-99 [facility]2022-02-28 10:53:00 Test Item Value Reference Range Interpretation Comments BUN (test code = BUN) 06-01 [facility]2022-02-28 10:53:00 Test Item Value Reference Range Interpretation Comments Creatinine Lvl (test code = Creatinine 0.98 0.50-1.40 Lvl) [facility]2022-02-28 10:53:00 Test Item Value Reference Range Interpretation Comments Sodium Lvl (test code = Sodium Lvl) 137 135-145 [facility]2022-02-28 10:53:00 Test Item Value Reference Range Interpretation Comments Potassium Lvl (test code = Potassium 5.2 3.5-5.1 Lvl) [facility]2022-02-28 10:53:00 Test Item Value Reference Range Interpretation Comments Chloride Lvl (test code = Chloride Lvl) 107 95-109 [facility]2022-02-28 10:53:00 Test Item Value Reference Range Interpretation Comments CO2 (test code = CO2) 24-32 [facility]2022-02-28 10:53:00 Test Item Value Reference Range Interpretation Comments Calcium Lvl (test code = Calcium Lvl) 8.2 8.5-10.5 [facility]2022-02-28 10:53:00 Test Item Value Reference Range Interpretation Comments AGAP (test code = AGAP) 10.2 10.0-20.0 [facility]2022-02-28 10:53:00 Test Item Value Reference Range Interpretation Comments eGFR (test code = eGFR) 54 [facility]2022-02-28 10:53:00 Test Item Value Reference Range Interpretation Comments Glucose Lvl (test code = Glucose Lvl) 95 70-99 [facility]2022-02-28 10:53:00 Test Item Value Reference Range Interpretation Comments BUN (test code = BUN) 05 06- [facility]2022-02-28 10:53:00 Test Item Value Reference Range Interpretation Comments Creatinine Lvl (test code = Creatinine 0.98 0.50-1.40 Lvl) [facility]2022-02-28 10:53:00 Test Item Value Reference Range Interpretation Comments Sodium Lvl (test code = Sodium Lvl) 137 135-145 [place] 542562-02-28 10:53:00 Test Item Value Reference Range Interpretation Comments Potassium Lvl (test code = Potassium 5.2 3.5-5.1 Lvl) [place] 542562-02-28 10:53:00 Test Item Value Reference Range Interpretation Comments Chloride Lvl (test code = Chloride Lvl) 107 95-109 [place] 542562-02-28 10:53:00 Test Item Value Reference Range Interpretation Comments CO2 (test code = CO2) 25 24-32 [place] 542562-02-28 10:53:00 Test Item Value Reference Range Interpretation Comments Calcium Lvl (test code = Calcium Lvl) 8.2 8.5-10.5 [place] 542562-02-28 10:53:00 Test Item Value Reference Range Interpretation Comments AGAP (test code = AGAP) 10.2 10.0-20.0 [place] 542562-02-28 10:53:00 Test Item Value Reference Range Interpretation Comments eGFR (test code = eGFR) 54 [place] 542562-02-28 10:53:00 Test Item Value Reference Range Interpretation Comments Glucose Lvl (test code = Glucose Lvl) 95 70-99 [place] 542562-02-28 10:53:00 Test Item Value Reference Range Interpretation Comments BUN (test code = BUN) 26 7-22 [place] 542562-02-28 10:53:00 Test Item Value Reference Range Interpretation Comments Creatinine Lvl (test code = Creatinine 0.98 0.50-1.40 Lvl) [facility]2022-02-28 10:53:00 Test Item Value Reference Range Interpretation Comments Sodium Lvl (test code = Sodium Lvl) 137 135-145 [place] 542562-02-28 10:53:00 Test Item Value Reference Range Interpretation Comments Potassium Lvl (test code = Potassium 5.2 3.5-5.1 Lvl) [facility]2022-02-28 10:53:00 Test Item Value Reference Range Interpretation Comments Chloride Lvl (test code = Chloride Lvl) 107 95-109 [facility]2022-02-28 10:53:00 Test Item Value Reference Range Interpretation Comments CO2 (test code = CO2) [facility]2022-02-28 10:53:00 Test Item Value Reference Range Interpretation Comments Calcium Lvl (test code = Calcium Lvl) 8.2 8.5-10.5 [facility]2022-02-28 10:53:00 Test Item Value Reference Range Interpretation Comments AGAP (test code = AGAP) 10.2 10.0-20.0 [facility]2022-02-28 10:53:00 Test Item Value Reference Range Interpretation Comments eGFR (test code = eGFR) 54 [facility]2022-02-28 10:53:00 Test Item Value Reference Range Interpretation Comments Glucose Lvl (test code = Glucose Lvl) 95 70-99 [facility]2022-02-28 10:53:00 Test Item Value Reference Range Interpretation Comments BUN (test code = BUN) 06-01 [facility]2022-02-28 10:53:00 Test Item Value Reference Range Interpretation Comments Creatinine Lvl (test code = Creatinine 0.98 0.50-1.40 Lvl) [facility]2022-02-28 10:53:00 Test Item Value Reference Range Interpretation Comments Sodium Lvl (test code = Sodium Lvl) 137 135-145 [facility]2022-02-28 10:53:00 Test Item Value Reference Range Interpretation Comments Potassium Lvl (test code = Potassium 5.2 3.5-5.1 Lvl) [facility]2022-02-28 10:53:00 Test Item Value Reference Range Interpretation Comments Chloride Lvl (test code = Chloride Lvl) 107 95-109 [facility]2022-02-28 10:53:00 Test Item Value Reference Range Interpretation Comments CO2 (test code = CO2) [facility]2022-02-28 10:53:00 Test Item Value Reference Range Interpretation Comments Calcium Lvl (test code = Calcium Lvl) 8.2 8.5-10.5 [facility]2022-02-28 10:53:00 Test Item Value Reference Range Interpretation Comments AGAP (test code = AGAP) 10.2 10.0-20.0 [place] 542562-02-28 10:53:00 Test Item Value Reference Range Interpretation Comments eGFR (test code = eGFR) 54 [facility]2022-02-28 10:53:00 Test Item Value Reference Range Interpretation Comments Glucose Lvl (test code = Glucose Lvl) 95 70-99 [place] 542562-02-28 10:53:00 Test Item Value Reference Range Interpretation Comments BUN (test code = BUN) 26 7-22 [place] 542562-02-28 10:53:00 Test Item Value Reference Range Interpretation Comments Creatinine Lvl (test code = Creatinine 0.98 0.50-1.40 Lvl) [place] 542562-02-28 10:53:00 Test Item Value Reference Range Interpretation Comments Sodium Lvl (test code = Sodium Lvl) 137 135-145 [place] 542562-02-28 10:53:00 Test Item Value Reference Range Interpretation Comments Potassium Lvl (test code = Potassium 5.2 3.5-5.1 Lvl) [facility]2022-02-28 10:53:00 Test Item Value Reference Range Interpretation Comments Chloride Lvl (test code = Chloride Lvl) 107 95-109 [place] 542562-02-28 10:53:00 Test Item Value Reference Range Interpretation Comments CO2 (test code = CO2) 25 24-32 [place] 542562-02-28 10:53:00 Test Item Value Reference Range Interpretation Comments Calcium Lvl (test code = Calcium Lvl) 8.2 8.5-10.5 [place] 542562-02-28 10:53:00 Test Item Value Reference Range Interpretation Comments AGAP (test code = AGAP) 10.2 10.0-20.0 [place] 542562-02-28 10:53:00 Test Item Value Reference Range Interpretation Comments eGFR (test code = eGFR) 54 [place] 542562-02-28 10:53:00 Test Item Value Reference Range Interpretation Comments Glucose Lvl (test code = Glucose Lvl) 95 70-99 [place] 542562-02-28 10:53:00 Test Item Value Reference Range Interpretation Comments BUN (test code = BUN) 26 7- [facility]2022-02-28 10:53:00 Test Item Value Reference Range Interpretation Comments Creatinine Lvl (test code = Creatinine 0.98 0.50-1.40 Lvl) [facility]2022-02-28 10:53:00 Test Item Value Reference Range Interpretation Comments Sodium Lvl (test code = Sodium Lvl) 137 135-145 [facility]2022-02-28 10:53:00 Test Item Value Reference Range Interpretation Comments Potassium Lvl (test code = Potassium 5.2 3.5-5.1 Lvl) [facility]2022-02-28 10:53:00 Test Item Value Reference Range Interpretation Comments Chloride Lvl (test code = Chloride Lvl) 107 95-109 [facility]2022-02-28 10:53:00 Test Item Value Reference Range Interpretation Comments CO2 (test code = CO2) 24-32 [facility]2022-02-28 10:53:00 Test Item Value Reference Range Interpretation Comments Calcium Lvl (test code = Calcium Lvl) 8.2 8.5-10.5 [facility]2022-02-28 10:53:00 Test Item Value Reference Range Interpretation Comments AGAP (test code = AGAP) 10.2 10.0-20.0 [facility]2022-02-28 10:53:00 Test Item Value Reference Range Interpretation Comments eGFR (test code = eGFR) 54 [facility]2022-02-28 10:53:00 Test Item Value Reference Range Interpretation Comments Glucose Lvl (test code = Glucose Lvl) 95 70-99 [facility]2022-02-28 10:53:00 Test Item Value Reference Range Interpretation Comments BUN (test code = BUN) 26 7-22 [facility]2022-02-28 10:53:00 Test Item Value Reference Range Interpretation Comments Creatinine Lvl (test code = Creatinine 0.98 0.50-1.40 Lvl) [facility]2022-02-28 10:53:00 Test Item Value Reference Range Interpretation Comments Sodium Lvl (test code = Sodium Lvl) 137 135-145 [place] 542562-02-28 10:53:00 Test Item Value Reference Range Interpretation Comments Potassium Lvl (test code = Potassium 5.2 3.5-5.1 Lvl) [facility]2022-02-28 10:53:00 Test Item Value Reference Range Interpretation Comments Chloride Lvl (test code = Chloride Lvl) 107 95-109 [place] 542562-02-28 10:53:00 Test Item Value Reference Range Interpretation Comments CO2 (test code = CO2) [place] 542562-02-28 10:53:00 Test Item Value Reference Range Interpretation Comments Calcium Lvl (test code = Calcium Lvl) 8.2 8.5-10.5 [facility]2022-02-28 10:53:00 Test Item Value Reference Range Interpretation Comments AGAP (test code = AGAP) 10.2 10.0-20.0 [facility]2022-02-28 10:53:00 Test Item Value Reference Range Interpretation Comments eGFR (test code = eGFR) 54 [facility]2022-02-28 10:53:00 Test Item Value Reference Range Interpretation Comments Glucose Lvl (test code = Glucose Lvl) 95 70-99 [facility]2022-02-28 10:53:00 Test Item Value Reference Range Interpretation Comments BUN (test code = BUN) 05 06- [facility]2022-02-28 10:53:00 Test Item Value Reference Range Interpretation Comments Creatinine Lvl (test code = Creatinine 0.98 0.50-1.40 Lvl) [facility]2022-02-28 10:53:00 Test Item Value Reference Range Interpretation Comments Sodium Lvl (test code = Sodium Lvl) 137 135-145 [place] 542562-02-28 10:53:00 Test Item Value Reference Range Interpretation Comments Potassium Lvl (test code = Potassium 5.2 3.5-5.1 Lvl) [facility]2022-02-28 10:53:00 Test Item Value Reference Range Interpretation Comments Chloride Lvl (test code = Chloride Lvl) 107 95-109 [facility]2022-02-28 10:53:00 Test Item Value Reference Range Interpretation Comments CO2 (test code = CO2) - [facility]2022-02-28 10:53:00 Test Item Value Reference Range Interpretation Comments Calcium Lvl (test code = Calcium Lvl) 8.2 8.5-10.5 [facility]2022-02-28 10:53:00 Test Item Value Reference Range Interpretation Comments AGAP (test code = AGAP) 10.2 10.0-20.0 [facility]2022-02-28 10:53:00 Test Item Value Reference Range Interpretation Comments eGFR (test code = eGFR) 54 [facility]2022-02-28 10:53:00 Test Item Value Reference Range Interpretation Comments Glucose Lvl (test code = Glucose Lvl) 95 70-99 [place] 542562-02-28 10:53:00 Test Item Value Reference Range Interpretation Comments BUN (test code = BUN) 26 7- [facility]2022-02-28 10:53:00 Test Item Value Reference Range Interpretation Comments Creatinine Lvl (test code = Creatinine 0.98 0.50-1.40 Lvl) [facility]2022-02-28 10:53:00 Test Item Value Reference Range Interpretation Comments Sodium Lvl (test code = Sodium Lvl) 137 135-145 [facility]2022-02-28 10:53:00 Test Item Value Reference Range Interpretation Comments Potassium Lvl (test code = Potassium 5.2 3.5-5.1 Lvl) [facility]2022-02-28 10:53:00 Test Item Value Reference Range Interpretation Comments Chloride Lvl (test code = Chloride Lvl) 107 95-109 [facility]2022-02-28 10:53:00 Test Item Value Reference Range Interpretation Comments CO2 (test code = CO2) 25 24-32 [facility]2022-02-28 10:53:00 Test Item Value Reference Range Interpretation Comments Calcium Lvl (test code = Calcium Lvl) 8.2 8.5-10.5 [facility]2022-02-28 10:53:00 Test Item Value Reference Range Interpretation Comments AGAP (test code = AGAP) 10.2 10.0-20.0 [facility]2022-02-28 10:53:00 Test Item Value Reference Range Interpretation Comments eGFR (test code = eGFR) 54 [facility]2022-02-27 10:19:00 Test Item Value Reference Range Interpretation Comments Glucose Lvl (test code = Glucose Lvl) 104 70-99 [facility]2022-02-27 10:19:00 Test Item Value Reference Range Interpretation Comments BUN (test code = BUN) 32 7- [facility]2022-02-27 10:19:00 Test Item Value Reference Range Interpretation Comments Creatinine Lvl (test code = Creatinine 1.07 0.50-1.40 Lvl) [facility]2022-02-27 10:19:00 Test Item Value Reference Range Interpretation Comments Sodium Lvl (test code = Sodium Lvl) 137 135-145 [facility]2022-02-27 10:19:00 Test Item Value Reference Range Interpretation Comments Potassium Lvl (test code = Potassium 5.0 3.5-5.1 Lvl) [facility]2022-02-27 10:19:00 Test Item Value Reference Range Interpretation Comments Chloride Lvl (test code = Chloride Lvl) 108 95-109 [facility]2022-02-27 10:19:00 Test Item Value Reference Range Interpretation Comments CO2 (test code = CO2) 23 24-32 [facility]2022-02-27 10:19:00 Test Item Value Reference Range Interpretation Comments Calcium Lvl (test code = Calcium Lvl) 8.3 8.5-10.5 [facility]2022-02-27 10:19:00 Test Item Value Reference Range Interpretation Comments AGAP (test code = AGAP) 11.0 10.0-20.0 [facility]2022-02-27 10:19:00 Test Item Value Reference Range Interpretation Comments eGFR (test code = eGFR) 48 [place] 542562-02-27 10:19:00 Test Item Value Reference Range Interpretation Comments Glucose Lvl (test code = Glucose Lvl) 104 70-99 [facility]2022-02-27 10:19:00 Test Item Value Reference Range Interpretation Comments BUN (test code = BUN) 32 7-22 [facility]2022-02-27 10:19:00 Test Item Value Reference Range Interpretation Comments Creatinine Lvl (test code = Creatinine 1.07 0.50-1.40 Lvl) [facility]2022-02-27 10:19:00 Test Item Value Reference Range Interpretation Comments Sodium Lvl (test code = Sodium Lvl) 137 135-145 [place] 542562-02-27 10:19:00 Test Item Value Reference Range Interpretation Comments Potassium Lvl (test code = Potassium 5.0 3.5-5.1 Lvl) [facility]2022-02-27 10:19:00 Test Item Value Reference Range Interpretation Comments Chloride Lvl (test code = Chloride Lvl) 108 95-109 [place] 542562-02-27 10:19:00 Test Item Value Reference Range Interpretation Comments CO2 (test code = CO2) 23 24-32 [place] 542562-02-27 10:19:00 Test Item Value Reference Range Interpretation Comments Calcium Lvl (test code = Calcium Lvl) 8.3 8.5-10.5 [place] 542562-02-27 10:19:00 Test Item Value Reference Range Interpretation Comments AGAP (test code = AGAP) 11.0 10.0-20.0 [facility]2022-02-27 10:19:00 Test Item Value Reference Range Interpretation Comments eGFR (test code = eGFR) 48 [place] 542562-02-27 10:19:00 Test Item Value Reference Range Interpretation Comments Glucose Lvl (test code = Glucose Lvl) 104 70-99 [facility]2022-02-27 10:19:00 Test Item Value Reference Range Interpretation Comments BUN (test code = BUN) 32 7-22 [facility]2022-02-27 10:19:00 Test Item Value Reference Range Interpretation Comments Creatinine Lvl (test code = Creatinine 1.07 0.50-1.40 Lvl) [facility]2022-02-27 10:19:00 Test Item Value Reference Range Interpretation Comments Sodium Lvl (test code = Sodium Lvl) 137 135-145 [place] 542562-02-27 10:19:00 Test Item Value Reference Range Interpretation Comments Potassium Lvl (test code = Potassium 5.0 3.5-5.1 Lvl) [facility]2022-02-27 10:19:00 Test Item Value Reference Range Interpretation Comments Chloride Lvl (test code = Chloride Lvl) 108 95-109 [place] 542562-02-27 10:19:00 Test Item Value Reference Range Interpretation Comments CO2 (test code = CO2) 23 24-32 [place] 542562-02-27 10:19:00 Test Item Value Reference Range Interpretation Comments Calcium Lvl (test code = Calcium Lvl) 8.3 8.5-10.5 [place] 542562-02-27 10:19:00 Test Item Value Reference Range Interpretation Comments AGAP (test code = AGAP) 11.0 10.0-20.0 [place] 542562-02-27 10:19:00 Test Item Value Reference Range Interpretation Comments eGFR (test code = eGFR) 48 [place] 542562-02-27 10:19:00 Test Item Value Reference Range Interpretation Comments Glucose Lvl (test code = Glucose Lvl) 104 70-99 [place] 542562-02-27 10:19:00 Test Item Value Reference Range Interpretation Comments BUN (test code = BUN) 32 - [place] 542562-02-27 10:19:00 Test Item Value Reference Range Interpretation Comments Creatinine Lvl (test code = Creatinine 1.07 0.50-1.40 Lvl) [place] 542562-02-27 10:19:00 Test Item Value Reference Range Interpretation Comments Sodium Lvl (test code = Sodium Lvl) 137 135-145 [place] 542562-02-27 10:19:00 Test Item Value Reference Range Interpretation Comments Potassium Lvl (test code = Potassium 5.0 3.5-5.1 Lvl) [place] 542562-02-27 10:19:00 Test Item Value Reference Range Interpretation Comments Chloride Lvl (test code = Chloride Lvl) 108 95-109 [place] 542562-02-27 10:19:00 Test Item Value Reference Range Interpretation Comments CO2 (test code = CO2) 23 24-32 [place] 542562-02-27 10:19:00 Test Item Value Reference Range Interpretation Comments Calcium Lvl (test code = Calcium Lvl) 8.3 8.5-10.5 [place] 542562-02-27 10:19:00 Test Item Value Reference Range Interpretation Comments AGAP (test code = AGAP) 11.0 10.0-20.0 [facility]2022-02-27 10:19:00 Test Item Value Reference Range Interpretation Comments eGFR (test code = eGFR) 48 [facility]2022-02-27 10:19:00 Test Item Value Reference Range Interpretation Comments Glucose Lvl (test code = Glucose Lvl) 104 70-99 [facility]2022-02-27 10:19:00 Test Item Value Reference Range Interpretation Comments BUN (test code = BUN) 32 7- [facility]2022-02-27 10:19:00 Test Item Value Reference Range Interpretation Comments Creatinine Lvl (test code = Creatinine 1.07 0.50-1.40 Lvl) [facility]2022-02-27 10:19:00 Test Item Value Reference Range Interpretation Comments Sodium Lvl (test code = Sodium Lvl) 137 135-145 [facility]2022-02-27 10:19:00 Test Item Value Reference Range Interpretation Comments Potassium Lvl (test code = Potassium 5.0 3.5-5.1 Lvl) [facility]2022-02-27 10:19:00 Test Item Value Reference Range Interpretation Comments Chloride Lvl (test code = Chloride Lvl) 108 95-109 [facility]2022-02-27 10:19:00 Test Item Value Reference Range Interpretation Comments CO2 (test code = CO2) 23 24-32 [facility]2022-02-27 10:19:00 Test Item Value Reference Range Interpretation Comments Calcium Lvl (test code = Calcium Lvl) 8.3 8.5-10.5 [facility]2022-02-27 10:19:00 Test Item Value Reference Range Interpretation Comments AGAP (test code = AGAP) 11.0 10.0-20.0 [facility]2022-02-27 10:19:00 Test Item Value Reference Range Interpretation Comments eGFR (test code = eGFR) 48 [facility]2022-02-27 10:19:00 Test Item Value Reference Range Interpretation Comments Glucose Lvl (test code = Glucose Lvl) 104 70-99 [facility]2022-02-27 10:19:00 Test Item Value Reference Range Interpretation Comments BUN (test code = BUN) 32 7-22 [place] 542562-02-27 10:19:00 Test Item Value Reference Range Interpretation Comments Creatinine Lvl (test code = Creatinine 1.07 0.50-1.40 Lvl) [facility]2022-02-27 10:19:00 Test Item Value Reference Range Interpretation Comments Sodium Lvl (test code = Sodium Lvl) 137 135-145 [place] 542562-02-27 10:19:00 Test Item Value Reference Range Interpretation Comments Potassium Lvl (test code = Potassium 5.0 3.5-5.1 Lvl) [place] 542562-02-27 10:19:00 Test Item Value Reference Range Interpretation Comments Chloride Lvl (test code = Chloride Lvl) 108 95-109 [place] 542562-02-27 10:19:00 Test Item Value Reference Range Interpretation Comments CO2 (test code = CO2) 23 24-32 [place] 542562-02-27 10:19:00 Test Item Value Reference Range Interpretation Comments Calcium Lvl (test code = Calcium Lvl) 8.3 8.5-10.5 [facility]2022-02-27 10:19:00 Test Item Value Reference Range Interpretation Comments AGAP (test code = AGAP) 11.0 10.0-20.0 [place] 542562-02-27 10:19:00 Test Item Value Reference Range Interpretation Comments eGFR (test code = eGFR) 48 [place] 542562-02-27 10:19:00 Test Item Value Reference Range Interpretation Comments Glucose Lvl (test code = Glucose Lvl) 104 70-99 [place] 542562-02-27 10:19:00 Test Item Value Reference Range Interpretation Comments BUN (test code = BUN) 32 7-22 [place] 542562-02-27 10:19:00 Test Item Value Reference Range Interpretation Comments Creatinine Lvl (test code = Creatinine 1.07 0.50-1.40 Lvl) [facility]2022-02-27 10:19:00 Test Item Value Reference Range Interpretation Comments Sodium Lvl (test code = Sodium Lvl) 137 135-145 [place] 542562-02-27 10:19:00 Test Item Value Reference Range Interpretation Comments Potassium Lvl (test code = Potassium 5.0 3.5-5.1 Lvl) [facility]2022-02-27 10:19:00 Test Item Value Reference Range Interpretation Comments Chloride Lvl (test code = Chloride Lvl) 108 95-109 [place] 542562-02-27 10:19:00 Test Item Value Reference Range Interpretation Comments CO2 (test code = CO2) 23 24- [place] 542562-02-27 10:19:00 Test Item Value Reference Range Interpretation Comments Calcium Lvl (test code = Calcium Lvl) 8.3 8.5-10.5 [place] 542562-02-27 10:19:00 Test Item Value Reference Range Interpretation Comments AGAP (test code = AGAP) 11.0 10.0-20.0 [place] 542562-02-27 10:19:00 Test Item Value Reference Range Interpretation Comments eGFR (test code = eGFR) 48 [place] 542562-02-27 10:19:00 Test Item Value Reference Range Interpretation Comments Glucose Lvl (test code = Glucose Lvl) 104 70-99 [place] 542562-02-27 10:19:00 Test Item Value Reference Range Interpretation Comments BUN (test code = BUN) 32 7- [place] 542562-02-27 10:19:00 Test Item Value Reference Range Interpretation Comments Creatinine Lvl (test code = Creatinine 1.07 0.50-1.40 Lvl) [place] 542562-02-27 10:19:00 Test Item Value Reference Range Interpretation Comments Sodium Lvl (test code = Sodium Lvl) 137 135-145 [place] 542562-02-27 10:19:00 Test Item Value Reference Range Interpretation Comments Potassium Lvl (test code = Potassium 5.0 3.5-5.1 Lvl) [place] 542562-02-27 10:19:00 Test Item Value Reference Range Interpretation Comments Chloride Lvl (test code = Chloride Lvl) 108 95-109 [place] 542562-02-27 10:19:00 Test Item Value Reference Range Interpretation Comments CO2 (test code = CO2) 23 24-32 [place] 542562-02-27 10:19:00 Test Item Value Reference Range Interpretation Comments Calcium Lvl (test code = Calcium Lvl) 8.3 8.5-10.5 [place] 542562-02-27 10:19:00 Test Item Value Reference Range Interpretation Comments AGAP (test code = AGAP) 11.0 10.0-20.0 [place] 542562-02-27 10:19:00 Test Item Value Reference Range Interpretation Comments eGFR (test code = eGFR) 48 [place] 542562-02-27 10:19:00 Test Item Value Reference Range Interpretation Comments Glucose Lvl (test code = Glucose Lvl) 104 70-99 [place] 542562-02-27 10:19:00 Test Item Value Reference Range Interpretation Comments BUN (test code = BUN) 32 7-22 [place] 542562-02-27 10:19:00 Test Item Value Reference Range Interpretation Comments Creatinine Lvl (test code = Creatinine 1.07 0.50-1.40 Lvl) [place] 542562-02-27 10:19:00 Test Item Value Reference Range Interpretation Comments Sodium Lvl (test code = Sodium Lvl) 137 135-145 [place] 542562-02-27 10:19:00 Test Item Value Reference Range Interpretation Comments Potassium Lvl (test code = Potassium 5.0 3.5-5.1 Lvl) [place] 542562-02-27 10:19:00 Test Item Value Reference Range Interpretation Comments Chloride Lvl (test code = Chloride Lvl) 108 95-109 [place] 542562-02-27 10:19:00 Test Item Value Reference Range Interpretation Comments CO2 (test code = CO2) 23 24-32 [place] 542562-02-27 10:19:00 Test Item Value Reference Range Interpretation Comments Calcium Lvl (test code = Calcium Lvl) 8.3 8.5-10.5 [place] 542562-02-27 10:19:00 Test Item Value Reference Range Interpretation Comments AGAP (test code = AGAP) 11.0 10.0-20.0 [place] 542562-02-27 10:19:00 Test Item Value Reference Range Interpretation Comments eGFR (test code = eGFR) 48 [place] 542562-02-27 10:19:00 Test Item Value Reference Range Interpretation Comments Glucose Lvl (test code = Glucose Lvl) 104 70-99 [facility]2022-02-27 10:19:00 Test Item Value Reference Range Interpretation Comments BUN (test code = BUN) 32 7-22 [place] 542562-02-27 10:19:00 Test Item Value Reference Range Interpretation Comments Creatinine Lvl (test code = Creatinine 1.07 0.50-1.40 Lvl) [facility]2022-02-27 10:19:00 Test Item Value Reference Range Interpretation Comments Sodium Lvl (test code = Sodium Lvl) 137 135-145 [place] 542562-02-27 10:19:00 Test Item Value Reference Range Interpretation Comments Potassium Lvl (test code = Potassium 5.0 3.5-5.1 Lvl) [facility]2022-02-27 10:19:00 Test Item Value Reference Range Interpretation Comments Chloride Lvl (test code = Chloride Lvl) 108 95-109 [place] 542562-02-27 10:19:00 Test Item Value Reference Range Interpretation Comments CO2 (test code = CO2) 23 24-32 [place] 542562-02-27 10:19:00 Test Item Value Reference Range Interpretation Comments Calcium Lvl (test code = Calcium Lvl) 8.3 8.5-10.5 [facility]2022-02-27 10:19:00 Test Item Value Reference Range Interpretation Comments AGAP (test code = AGAP) 11.0 10.0-20.0 [place] 542562-02-27 10:19:00 Test Item Value Reference Range Interpretation Comments eGFR (test code = eGFR) 48 [place] 542562-02-27 10:19:00 Test Item Value Reference Range Interpretation Comments Glucose Lvl (test code = Glucose Lvl) 104 70-99 [facility]2022-02-27 10:19:00 Test Item Value Reference Range Interpretation Comments BUN (test code = BUN) 32 7-22 [facility]2022-02-27 10:19:00 Test Item Value Reference Range Interpretation Comments Creatinine Lvl (test code = Creatinine 1.07 0.50-1.40 Lvl) [facility]2022-02-27 10:19:00 Test Item Value Reference Range Interpretation Comments Sodium Lvl (test code = Sodium Lvl) 137 135-145 [place] 542562-02-27 10:19:00 Test Item Value Reference Range Interpretation Comments Potassium Lvl (test code = Potassium 5.0 3.5-5.1 Lvl) [facility]2022-02-27 10:19:00 Test Item Value Reference Range Interpretation Comments Chloride Lvl (test code = Chloride Lvl) 108 95-109 [place] 542562-02-27 10:19:00 Test Item Value Reference Range Interpretation Comments CO2 (test code = CO2) 23 24-32 [place] 542562-02-27 10:19:00 Test Item Value Reference Range Interpretation Comments Calcium Lvl (test code = Calcium Lvl) 8.3 8.5-10.5 [facility]2022-02-27 10:19:00 Test Item Value Reference Range Interpretation Comments AGAP (test code = AGAP) 11.0 10.0-20.0 [place] 542562-02-27 10:19:00 Test Item Value Reference Range Interpretation Comments eGFR (test code = eGFR) 48 [place] 542562-02-27 10:19:00 Test Item Value Reference Range Interpretation Comments Glucose Lvl (test code = Glucose Lvl) 104 70-99 [place] 542562-02-27 10:19:00 Test Item Value Reference Range Interpretation Comments BUN (test code = BUN) 32 7-22 [facility]2022-02-27 10:19:00 Test Item Value Reference Range Interpretation Comments Creatinine Lvl (test code = Creatinine 1.07 0.50-1.40 Lvl) [facility]2022-02-27 10:19:00 Test Item Value Reference Range Interpretation Comments Sodium Lvl (test code = Sodium Lvl) 137 135-145 [place] 542562-02-27 10:19:00 Test Item Value Reference Range Interpretation Comments Potassium Lvl (test code = Potassium 5.0 3.5-5.1 Lvl) [place] 542562-02-27 10:19:00 Test Item Value Reference Range Interpretation Comments Chloride Lvl (test code = Chloride Lvl) 108 95-109 [place] 542562-02-27 10:19:00 Test Item Value Reference Range Interpretation Comments CO2 (test code = CO2) 23 24-32 [facility]2022-02-27 10:19:00 Test Item Value Reference Range Interpretation Comments Calcium Lvl (test code = Calcium Lvl) 8.3 8.5-10.5 [place] 542562-02-27 10:19:00 Test Item Value Reference Range Interpretation Comments AGAP (test code = AGAP) 11.0 10.0-20.0 [place] 542562-02-27 10:19:00 Test Item Value Reference Range Interpretation Comments eGFR (test code = eGFR) 48 [place] 519362-02-25 06:40:00 Test Item Value Reference Range Interpretation Comments Anti-Xa Low Molecular Heparin (test 0.47 code = Anti-Xa Low Molecular Heparin) [address]02-25 06:40:00 Test Item Value Reference Range Interpretation Comments Anti-Xa Low Molecular Heparin (test 0.47 code = Anti-Xa Low Molecular Heparin) [address]02-25 06:40:00 Test Item Value Reference Range Interpretation Comments Anti-Xa Low Molecular Heparin (test 0.47 code = Anti-Xa Low Molecular Heparin) [address]02-25 06:40:00 Test Item Value Reference Range Interpretation Comments Anti-Xa Low Molecular Heparin (test 0.47 code = Anti-Xa Low Molecular Heparin) [address]02-25 06:40:00 Test Item Value Reference Range Interpretation Comments Anti-Xa Low Molecular Heparin (test 0.47 code = Anti-Xa Low Molecular Heparin) [address]02-25 06:40:00 Test Item Value Reference Range Interpretation Comments Anti-Xa Low Molecular Heparin (test 0.47 code = Anti-Xa Low Molecular Heparin) [address]02-25 06:40:00 Test Item Value Reference Range Interpretation Comments Anti-Xa Low Molecular Heparin (test 0.47 code = Anti-Xa Low Molecular Heparin) [address]02-25 06:40:00 Test Item Value Reference Range Interpretation Comments Anti-Xa Low Molecular Heparin (test 0.47 code = Anti-Xa Low Molecular Heparin) [address]02-25 06:40:00 Test Item Value Reference Range Interpretation Comments Anti-Xa Low Molecular Heparin (test 0.47 code = Anti-Xa Low Molecular Heparin) [id number] 06:40:00 Test Item Value Reference Range Interpretation Comments Anti-Xa Low Molecular Heparin (test 0.47 code = Anti-Xa Low Molecular Heparin) [facility] [id number] 06:40:00 Test Item Value Reference Range Interpretation Comments Anti-Xa Low Molecular Heparin (test 0.47 code = Anti-Xa Low Molecular Heparin) [facility] [id number] 06:40:00 Test Item Value Reference Range Interpretation Comments Anti-Xa Low Molecular Heparin (test 0.47 code = Anti-Xa Low Molecular Heparin) [id number] Test Item Value Reference Range Interpretation Comments HS Troponin I (test code = HS Troponin 13 I) [facility] [id number] 00:36:00 Test Item Value Reference Range Interpretation Comments HS Troponin I (test code = HS Troponin 13 I) [facility] [id number] 00:36:00 Test Item Value Reference Range Interpretation Comments HS Troponin I (test code = HS Troponin 13 I) [facility] [id number] 00:36:00 Test Item Value Reference Range Interpretation Comments HS Troponin I (test code = HS Troponin 13 I) [facility] [id number] 00:36:00 Test Item Value Reference Range Interpretation Comments HS Troponin I (test code = HS Troponin 13 I) [facility] [id number] 00:36:00 Test Item Value Reference Range Interpretation Comments HS Troponin I (test code = HS Troponin 13 I) [facility] [id number] 00:36:00 Test Item Value Reference Range Interpretation Comments HS Troponin I (test code = HS Troponin 13 I) [id number]:36:00 Test Item Value Reference Range Interpretation Comments HS Troponin I (test code = HS Troponin 13 I) [facility] [id number] 00:36:00 Test Item Value Reference Range Interpretation Comments HS Troponin I (test code = HS Troponin 13 I) [facility] [id number] 00:36:00 Test Item Value Reference Range Interpretation Comments HS Troponin I (test code = HS Troponin 13 I) [facility] [id number] 00:36:00 Test Item Value Reference Range Interpretation Comments HS Troponin I (test code = HS Troponin 13 I) [facility] [id number] 00:36:00 Test Item Value Reference Range Interpretation Comments HS Troponin I (test code = HS Troponin 13 I) [facility] [id number] 17:16:00 Test Item Value Reference Range Interpretation Comments HS Troponin I 1 Hr (test code = HS 14 Troponin I 1 Hr) [facility] [id number] 17:16:00 Test Item Value Reference Range Interpretation Comments HS Troponin I 0 to 1 Hour Delta (test -2 code = HS Troponin I 0 to 1 Hour Delta) [facility] [id number] 17:16:00 Test Item Value Reference Range Interpretation Comments HS Troponin I 1 Hr (test code = HS 14 Troponin I 1 Hr) [facility] [id number] 17:16:00 Test Item Value Reference Range Interpretation Comments HS Troponin I 0 to 1 Hour Delta (test -2 code = HS Troponin I 0 to 1 Hour Delta) [facility] [id number] 17:16:00 Test Item Value Reference Range Interpretation Comments HS Troponin I 1 Hr (test code = HS 14 Troponin I 1 Hr) [facility] [id number] 17:16:00 Test Item Value Reference Range Interpretation Comments HS Troponin I 0 to 1 Hour Delta (test -2 code = HS Troponin I 0 to 1 Hour Delta) [facility] [id number] 17:16:00 Test Item Value Reference Range Interpretation Comments HS Troponin I 1 Hr (test code = HS 14 Troponin I 1 Hr) [facility] [id number] 17:16:00 Test Item Value Reference Range Interpretation Comments HS Troponin I 0 to 1 Hour Delta (test -2 code = HS Troponin I 0 to 1 Hour Delta) [facility] [id number] 17:16:00 Test Item Value Reference Range Interpretation Comments HS Troponin I 1 Hr (test code = HS 14 Troponin I 1 Hr) [facility] ResourcesannCARDIAC [id number] 17:16:00 Test Item Value Reference Range Interpretation Comments HS Troponin I 0 to 1 Hour Delta (test -2 code = HS Troponin I 0 to 1 Hour Delta) [facility] [id number] 17:16:00 Test Item Value Reference Range Interpretation Comments HS Troponin I 1 Hr (test code = HS 14 Troponin I 1 Hr) [facility] [id number] 17:16:00 Test Item Value Reference Range Interpretation Comments HS Troponin I 0 to 1 Hour Delta (test -2 code = HS Troponin I 0 to 1 Hour Delta) [facility] [id number] 17:16:00 Test Item Value Reference Range Interpretation Comments HS Troponin I 1 Hr (test code = HS 14 Troponin I 1 Hr) [facility] [id number] 17:16:00 Test Item Value Reference Range Interpretation Comments HS Troponin I 0 to 1 Hour Delta (test -2 code = HS Troponin I 0 to 1 Hour Delta) [facility] [id number] 17:16:00 Test Item Value Reference Range Interpretation Comments HS Troponin I 1 Hr (test code = HS 14 Troponin I 1 Hr) [facility] [id number] 17:16:00 Test Item Value Reference Range Interpretation Comments HS Troponin I 0 to 1 Hour Delta (test -2 code = HS Troponin I 0 to 1 Hour Delta) [facility] [id number] 17:16:00 Test Item Value Reference Range Interpretation Comments HS Troponin I 1 Hr (test code = HS 14 Troponin I 1 Hr) [facility] [id number] 17:16:00 Test Item Value Reference Range Interpretation Comments HS Troponin I 0 to 1 Hour Delta (test -2 code = HS Troponin I 0 to 1 Hour Delta) [facility] [id number] 17:16:00 Test Item Value Reference Range Interpretation Comments HS Troponin I 1 Hr (test code = HS 14 Troponin I 1 Hr) [facility] [id number] 17:16:00 Test Item Value Reference Range Interpretation Comments HS Troponin I 0 to 1 Hour Delta (test -2 code = HS Troponin I 0 to 1 Hour Delta) [facility] [id number] 17:16:00 Test Item Value Reference Range Interpretation Comments HS Troponin I 1 Hr (test code = HS 14 Troponin I 1 Hr) [facility] [id number] 17:16:00 Test Item Value Reference Range Interpretation Comments HS Troponin I 0 to 1 Hour Delta (test -2 code = HS Troponin I 0 to 1 Hour Delta) [facility] [id number] 17:16:00 Test Item Value Reference Range Interpretation Comments HS Troponin I 1 Hr (test code = HS 14 Troponin I 1 Hr) [facility] [id number] 17:16:00 Test Item Value Reference Range Interpretation Comments HS Troponin I 0 to 1 Hour Delta (test -2 code = HS Troponin I 0 to 1 Hour Delta) [facility] [id number] 16:09:00 Test Item Value Reference Range Interpretation Comments HS Troponin I Baseline (test code = HS 16 Troponin I Baseline) [facility] [id number] 16:09:00 Test Item Value Reference Range Interpretation Comments HS Troponin I Baseline (test code = HS 16 Troponin I Baseline) [facility] [id number] 16:09:00 Test Item Value Reference Range Interpretation Comments HS Troponin I Baseline (test code = HS 16 Troponin I Baseline) [facility] [id number] 16:09:00 Test Item Value Reference Range Interpretation Comments HS Troponin I Baseline (test code = HS 16 Troponin I Baseline) [facility] [id number] 16:09:00 Test Item Value Reference Range Interpretation Comments HS Troponin I Baseline (test code = HS 16 Troponin I Baseline) [facility] [id number] 16:09:00 Test Item Value Reference Range Interpretation Comments HS Troponin I Baseline (test code = HS 16 Troponin I Baseline) [facility] [id number] 16:09:00 Test Item Value Reference Range Interpretation Comments HS Troponin I Baseline (test code = HS 16 Troponin I Baseline) [facility] [id number] 16:09:00 Test Item Value Reference Range Interpretation Comments HS Troponin I Baseline (test code = HS 16 Troponin I Baseline) [facility] [id number] 16:09:00 Test Item Value Reference Range Interpretation Comments HS Troponin I Baseline (test code = HS 16 Troponin I Baseline) [facility] [id number] 16:09:00 Test Item Value Reference Range Interpretation Comments HS Troponin I Baseline (test code = HS 16 Troponin I Baseline) [facility] [id number] 16:09:00 Test Item Value Reference Range Interpretation Comments HS Troponin I Baseline (test code = HS 16 Troponin I Baseline) [facility] [id number] 16:09:00 Test Item Value Reference Range Interpretation Comments HS Troponin I Baseline (test code = HS 16 Troponin I Baseline) [id number] 14:24:00 Test Item Value Reference Range Interpretation Comments Anti-Xa Low Molecular Heparin (test 0.44 code = Anti-Xa Low Molecular Heparin) [id number] 14:24:00 Test Item Value Reference Range Interpretation Comments Anti-Xa Low Molecular Heparin (test 0.44 code = Anti-Xa Low Molecular Heparin) [place] [id number] 14:24:00 Test Item Value Reference Range Interpretation Comments Anti-Xa Low Molecular Heparin (test 0.44 code = Anti-Xa Low Molecular Heparin) [id number] 14:24:00 Test Item Value Reference Range Interpretation Comments Anti-Xa Low Molecular Heparin (test 0.44 code = Anti-Xa Low Molecular Heparin) [id number] 14:24:00 Test Item Value Reference Range Interpretation Comments Anti-Xa Low Molecular Heparin (test 0.44 code = Anti-Xa Low Molecular Heparin) [facility] [id number] 14:24:00 Test Item Value Reference Range Interpretation Comments Anti-Xa Low Molecular Heparin (test 0.44 code = Anti-Xa Low Molecular Heparin) [facility] [id number] 14:24:00 Test Item Value Reference Range Interpretation Comments Anti-Xa Low Molecular Heparin (test 0.44 code = Anti-Xa Low Molecular Heparin) [place] [id number] 14:24:00 Test Item Value Reference Range Interpretation Comments Anti-Xa Low Molecular Heparin (test 0.44 code = Anti-Xa Low Molecular Heparin) [place] [id number] 14:24:00 Test Item Value Reference Range Interpretation Comments Anti-Xa Low Molecular Heparin (test 0.44 code = Anti-Xa Low Molecular Heparin) [facility] [id number] 14:24:00 Test Item Value Reference Range Interpretation Comments Anti-Xa Low Molecular Heparin (test 0.44 code = Anti-Xa Low Molecular Heparin) [facility] [id number] 14:24:00 Test Item Value Reference Range Interpretation Comments Anti-Xa Low Molecular Heparin (test 0.44 code = Anti-Xa Low Molecular Heparin) [facility] [id number] 14:24:00 Test Item Value Reference Range Interpretation Comments Anti-Xa Low Molecular Heparin (test 0.44 code = Anti-Xa Low Molecular Heparin) [facility] [id number] 07:53:00 Test Item Value Reference Range Interpretation Comments ABO/Rh (test code = ABO/Rh) A NEG [facility] [id number] 07:53:00 Test Item Value Reference Range Interpretation Comments Antibody Scrn (test Positive (01/03/22 1:53 code = Antibody Scrn) AM) [facility] [id number] 07:53:00 Test Item Value Reference Range Interpretation Comments ABO/Rh (test code = ABO/Rh) A NEG [facility] [id number] 07:53:00 Test Item Value Reference Range Interpretation Comments Antibody Scrn (test Positive (01/03/22 1:53 code = Antibody Scrn) AM) [facility] [id number] 07:53:00 Test Item Value Reference Range Interpretation Comments ABO/Rh (test code = ABO/Rh) A NEG [facility] [id number] 07:53:00 Test Item Value Reference Range Interpretation Comments Antibody Scrn (test Positive (01/03/22 1:53 code = Antibody Scrn) AM) [facility] [id number] 07:53:00 Test Item Value Reference Range Interpretation Comments ABO/Rh (test code = ABO/Rh) A NEG [facility] [id number] 07:53:00 Test Item Value Reference Range Interpretation Comments Antibody Scrn (test Positive (01/03/22 1:53 code = Antibody Scrn) AM) [facility] [id number] 07:53:00 Test Item Value Reference Range Interpretation Comments ABO/Rh (test code = ABO/Rh) A [facility] [id number] 07:53:00 Test Item Value Reference Range Interpretation Comments Antibody Scrn (test Positive (01/03/22 1:53 code = Antibody Scrn) AM) [facility] [id number] 07:53:00 Test Item Value Reference Range Interpretation Comments ABO/Rh (test code = ABO/Rh) A [facility] [id number] 07:53:00 Test Item Value Reference Range Interpretation Comments Antibody Scrn (test Positive (01/03/22 1:53 code = Antibody Scrn) AM) [facility] [id number] 07:53:00 Test Item Value Reference Range Interpretation Comments ABO/Rh (test code = ABO/Rh) A [facility] [id number] 07:53:00 Test Item Value Reference Range Interpretation Comments Antibody Scrn (test Positive (01/03/22 1:53 code = Antibody Scrn) AM) [facility] [id number] 07:53:00 Test Item Value Reference Range Interpretation Comments ABO/Rh (test code = ABO/Rh) A [facility] [id number] 07:53:00 Test Item Value Reference Range Interpretation Comments Antibody Scrn (test Positive (01/03/22 1:53 code = Antibody Scrn) AM) [facility] [id number] 07:53:00 Test Item Value Reference Range Interpretation Comments ABO/Rh (test code = ABO/Rh) A [facility] [id number] 07:53:00 Test Item Value Reference Range Interpretation Comments Antibody Scrn (test Positive (01/03/22 1:53 code = Antibody Scrn) AM) [facility] [id number] 07:53:00 Test Item Value Reference Range Interpretation Comments ABO/Rh (test code = ABO/Rh) A [facility] [id number] 07:53:00 Test Item Value Reference Range Interpretation Comments Antibody Scrn (test Positive (01/03/22 1:53 code = Antibody Scrn) AM) [facility] [id number] 07:53:00 Test Item Value Reference Range Interpretation Comments ABO/Rh (test code = ABO/Rh) A NEG [facility] [id number] 07:53:00 Test Item Value Reference Range Interpretation Comments Antibody Scrn (test Positive (01/03/22 1:53 code = Antibody Scrn) AM) [facility] [id number] 07:53:00 Test Item Value Reference Range Interpretation Comments ABO/Rh (test code = ABO/Rh) A NEG [facility] [id number] 07:53:00 Test Item Value Reference Range Interpretation Comments Antibody Scrn (test Positive (01/03/22 1:53 code = Antibody Scrn) AM) [facility] [id number] 07:46:00 Test Item Value Reference Range Interpretation Comments RBC product (test code Product available = RBC product) (01/03/22 1:46 AM) [facility] [id number] 07:46:00 Test Item Value Reference Range Interpretation Comments RBC product (test code Product available = RBC product) (01/03/22 1:46 AM) [facility] [id number] 07:46:00 Test Item Value Reference Range Interpretation Comments RBC product (test code Product available = RBC product) (01/03/22 1:46 AM) [facility] [id number] 07:46:00 Test Item Value Reference Range Interpretation Comments RBC product (test code Product available = RBC product) (01/03/22 1:46 AM) [facility] [id number] 07:46:00 Test Item Value Reference Range Interpretation Comments RBC product (test code Product available = RBC product) (01/03/22 1:46 AM) [facility] [id number] 07:46:00 Test Item Value Reference Range Interpretation Comments RBC product (test code Product available = RBC product) (01/03/22 1:46 AM) [facility] [id number] 07:46:00 Test Item Value Reference Range Interpretation Comments RBC product (test code Product available = RBC product) (01/03/22 1:46 AM) [facility] [id number] 07:46:00 Test Item Value Reference Range Interpretation Comments RBC product (test code Product available = RBC product) (01/03/22 1:46 AM) [facility] [id number] 07:46:00 Test Item Value Reference Range Interpretation Comments RBC product (test code Product available = RBC product) (01/03/22 1:46 AM) [facility] [id number] 07:46:00 Test Item Value Reference Range Interpretation Comments RBC product (test code Product available = RBC product) (01/03/22 1:46 AM) [facility] [id number] 07:46:00 Test Item Value Reference Range Interpretation Comments RBC product (test code Product available = RBC product) (01/03/22 1:46 AM) [facility] [id number] 07:46:00 Test Item Value Reference Range Interpretation Comments RBC product (test code Product available = RBC product) (01/03/22 1:46 AM) [facility] [employer] [id number] 06:07:00 Test Item Value Reference Range Interpretation Comments Magnesium Lvl (test code = Magnesium 2.5 1.8-2.4 Lvl) [facility] [employer] [id number] 06:07:00 Test Item Value Reference Range Interpretation Comments Phosphorus (test code = Phosphorus) 3.4 2.5-4.5 [facility] [employer] [id number] 06:07:00 Test Item Value Reference Range Interpretation Comments Magnesium Lvl (test code = Magnesium 2.5 1.8-2.4 Lvl) [facility] [employer] [id number] 06:07:00 Test Item Value Reference Range Interpretation Comments Phosphorus (test code = Phosphorus) 3.4 2.5-4.5 [facility] [employer] [id number] 06:07:00 Test Item Value Reference Range Interpretation Comments Magnesium Lvl (test code = Magnesium 2.5 1.8-2.4 Lvl) [facility] [employer] [id number] 06:07:00 Test Item Value Reference Range Interpretation Comments Phosphorus (test code = Phosphorus) 3.4 2.5-4.5 [facility] [place] [id number] 06:07:00 Test Item Value Reference Range Interpretation Comments Magnesium Lvl (test code = Magnesium 2.5 1.8-2.4 Lvl) [place] [id number] 06:07:00 Test Item Value Reference Range Interpretation Comments Phosphorus (test code = Phosphorus) 3.4 2.5-4.5 [place] [id number] 06:07:00 Test Item Value Reference Range Interpretation Comments Magnesium Lvl (test code = Magnesium 2.5 1.8-2.4 Lvl) [place] [id number] 06:07:00 Test Item Value Reference Range Interpretation Comments Phosphorus (test code = Phosphorus) 3.4 2.5-4.5 [place] [id number] 06:07:00 Test Item Value Reference Range Interpretation Comments Magnesium Lvl (test code = Magnesium 2.5 1.8-2.4 Lvl) [place] [id number] 06:07:00 Test Item Value Reference Range Interpretation Comments Phosphorus (test code = Phosphorus) 3.4 2.5-4.5 [place] [id number] 06:07:00 Test Item Value Reference Range Interpretation Comments Magnesium Lvl (test code = Magnesium 2.5 1.8-2.4 Lvl) [place] [id number] 06:07:00 Test Item Value Reference Range Interpretation Comments Phosphorus (test code = Phosphorus) 3.4 2.5-4.5 [place] [id number] 06:07:00 Test Item Value Reference Range Interpretation Comments Magnesium Lvl (test code = Magnesium 2.5 1.8-2.4 Lvl) [place] [id number] 06:07:00 Test Item Value Reference Range Interpretation Comments Phosphorus (test code = Phosphorus) 3.4 2.5-4.5 [place] [id number] 06:07:00 Test Item Value Reference Range Interpretation Comments Magnesium Lvl (test code = Magnesium 2.5 1.8-2.4 Lvl) [place] [id number] 06:07:00 Test Item Value Reference Range Interpretation Comments Phosphorus (test code = Phosphorus) 3.4 2.5-4.5 [place] [id number] 06:07:00 Test Item Value Reference Range Interpretation Comments Magnesium Lvl (test code = Magnesium 2.5 1.8-2.4 Lvl) [facility] [id number] 06:07:00 Test Item Value Reference Range Interpretation Comments Phosphorus (test code = Phosphorus) 3.4 2.5-4.5 [facility] ResourcesSaperionCHEM [id number] 06:07:00 Test Item Value Reference Range Interpretation Comments Magnesium Lvl (test code = Magnesium 2.5 1.8-2.4 Lvl) [facility] [id number] 06:07:00 Test Item Value Reference Range Interpretation Comments Phosphorus (test code = Phosphorus) 3.4 2.5-4.5 [facility] [id number] 06:07:00 Test Item Value Reference Range Interpretation Comments Magnesium Lvl (test code = Magnesium 2.5 1.8-2.4 Lvl) [facility] [id number] 06:07:00 Test Item Value Reference Range Interpretation Comments Phosphorus (test code = Phosphorus) 3.4 2.5-4.5 [facility] [id number] 06:53:00 Test Item Value Reference Range Interpretation Comments HS Troponin I (test code = HS Troponin 23 I) [facility] [id number] 06:53:00 Test Item Value Reference Range Interpretation Comments Total Protein (test code = Total 4.2 6.4-8.4 Protein) [facility] [id number] 06:53:00 Test Item Value Reference Range Interpretation Comments Albumin Lvl (test code = Albumin Lvl) 1.6 3.5-5.0 [facility] [id number] 06:53:00 Test Item Value Reference Range Interpretation Comments ALT (test code = ALT) 13 See_Comment [Auto mated message] The system which ge nerated this result transmit rosendo reference range : <=65. The reference range was not used to interpr et this result as josi l/abnormal. [facility] [id number] 06:53:00 Test Item Value Reference Range Interpretation Comments AST (test code = AST) 24 See_Comment [Auto mated message] The system which ge nerated this result transmit rosendo reference range : <=37. The reference range was not used to interpr et this result as josi l/abnormal. [facility] [employer] [id number] 06:53:00 Test Item Value Reference Range Interpretation Comments Alk Phos (test code = Alk Phos) 79 39-136 [facility] [id number] 06:53:00 Test Item Value Reference Range Interpretation Comments Bili Total (test code = Bili Total) 0.9 0.2-1.3 [facility] [id number] 06:53:00 Test Item Value Reference Range Interpretation Comments B/C Ratio (test code = B/C Ratio) 22 1 6-25 [facility] [id number] 06:53:00 Test Item Value Reference Range Interpretation Comments Globulin (test code = Globulin) 2.6 2.7-4.2 [facility] [id number] 06:53:00 Test Item Value Reference Range Interpretation Comments A/G Ratio (test code = A/G Ratio) 0.6 1 0.7-1.6 [facility]ann[facility] [id number] 06:53:00 Test Item Value Reference Range Interpretation Comments HS Troponin I (test code = HS Troponin 23 I) [facility] [id number] 06:53:00 Test Item Value Reference Range Interpretation Comments Total Protein (test code = Total 4.2 6.4-8.4 Protein) [facility] [id number] 06:53:00 Test Item Value Reference Range Interpretation Comments Albumin Lvl (test code = Albumin Lvl) 1.6 3.5-5.0 [facility] [id number] 06:53:00 Test Item Value Reference Range Interpretation Comments ALT (test code = ALT) 13 See_Comment [Auto mated message] The system which ge nerated this result transmit rosendo reference range : <=65. The reference range was not used to interpr et this result as josi l/abnormal. [facility] [employer] [id number] 06:53:00 Test Item Value Reference Range Interpretation Comments AST (test code = AST) 24 See_Comment [Auto mated message] The system which ge nerated this result transmit rosendo reference range : <=37. The reference range was not used to interpr et this result as josi l/abnormal. [facility] [id number] 06:53:00 Test Item Value Reference Range Interpretation Comments Alk Phos (test code = Alk Phos) 79 39-136 [facility] [id number] 06:53:00 Test Item Value Reference Range Interpretation Comments Bili Total (test code = Bili Total) 0.9 0.2-1.3 [place] [id number] 06:53:00 Test Item Value Reference Range Interpretation Comments B/C Ratio (test code = B/C Ratio) 22 1 6-25 [facility] [id number] 06:53:00 Test Item Value Reference Range Interpretation Comments Globulin (test code = Globulin) 2.6 2.7-4.2 [facility] [id number] 06:53:00 Test Item Value Reference Range Interpretation Comments A/G Ratio (test code = A/G Ratio) 0.6 1 0.7-1.6 [facility] [id number] 06:53:00 Test Item Value Reference Range Interpretation Comments HS Troponin I (test code = HS Troponin 23 I) [facility] [id number] 06:53:00 Test Item Value Reference Range Interpretation Comments Total Protein (test code = Total 4.2 6.4-8.4 Protein) [facility] [id number] 06:53:00 Test Item Value Reference Range Interpretation Comments Albumin Lvl (test code = Albumin Lvl) 1.6 3.5-5.0 [facility] [id number] 06:53:00 Test Item Value Reference Range Interpretation Comments ALT (test code = ALT) 13 See_Comment [Auto mated message] The system which ge nerated this result transmit rosendo reference range : <=65. The reference range was not used to interpr et this result as josi l/abnormal. [facility] [id number] 06:53:00 Test Item Value Reference Range Interpretation Comments AST (test code = AST) 24 See_Comment [Auto mated message] The system which ge nerated this result transmit rosendo reference range : <=37. The reference range was not used to interpr et this result as josi l/abnormal. [facility] [employer] [id number] 06:53:00 Test Item Value Reference Range Interpretation Comments Alk Phos (test code = Alk Phos) 79 39-136 [facility] [id number] 06:53:00 Test Item Value Reference Range Interpretation Comments Bili Total (test code = Bili Total) 0.9 0.2-1.3 [facility]2022-02-22 06:53:00 Test Item Value Reference Range Interpretation Comments B/C Ratio (test code = B/C Ratio) 22 1 6-25 [place] [id number] 06:53:00 Test Item Value Reference Range Interpretation Comments Globulin (test code = Globulin) 2.6 2.7-4.2 [place] [id number] 06:53:00 Test Item Value Reference Range Interpretation Comments A/G Ratio (test code = A/G Ratio) 0.6 1 0.7-1.6 [facility] ResourcesannCARDIAC [id number] 06:53:00 Test Item Value Reference Range Interpretation Comments HS Troponin I (test code = HS Troponin 23 I) [facility]2022-02-22 06:53:00 Test Item Value Reference Range Interpretation Comments Total Protein (test code = Total 4.2 6.4-8.4 Protein) [facility] [id number] 06:53:00 Test Item Value Reference Range Interpretation Comments Albumin Lvl (test code = Albumin Lvl) 1.6 3.5-5.0 [facility]2022-02-22 06:53:00 Test Item Value Reference Range Interpretation Comments ALT (test code = ALT) 13 See_Comment [Auto mated message] The system which ge nerated this result transmit rosendo reference range : <=65. The reference range was not used to interpr et this result as josi l/abnormal. [facility] [id number] 06:53:00 Test Item Value Reference Range Interpretation Comments AST (test code = AST) 24 See_Comment [Auto mated message] The system which ge nerated this result transmit rosendo reference range : <=37. The reference range was not used to interpr et this result as josi l/abnormal. [facility] [id number] 06:53:00 Test Item Value Reference Range Interpretation Comments Alk Phos (test code = Alk Phos) 79 39-136 [facility] [id number] 06:53:00 Test Item Value Reference Range Interpretation Comments Bili Total (test code = Bili Total) 0.9 0.2-1.3 [facility] [id number] 06:53:00 Test Item Value Reference Range Interpretation Comments B/C Ratio (test code = B/C Ratio) 22 1 6-25 [facility] [id number] 06:53:00 Test Item Value Reference Range Interpretation Comments Globulin (test code = Globulin) 2.6 2.7-4.2 [facility] [id number] 06:53:00 Test Item Value Reference Range Interpretation Comments A/G Ratio (test code = A/G Ratio) 0.6 1 0.7-1.6 [facility]annCARDI[facility] [id number] 06:53:00 Test Item Value Reference Range Interpretation Comments HS Troponin I (test code = HS Troponin 23 I) [facility] [id number] 06:53:00 Test Item Value Reference Range Interpretation Comments Total Protein (test code = Total 4.2 6.4-8.4 Protein) [facility] [id number] 06:53:00 Test Item Value Reference Range Interpretation Comments Albumin Lvl (test code = Albumin Lvl) 1.6 3.5-5.0 [facility] [id number] 06:53:00 Test Item Value Reference Range Interpretation Comments ALT (test code = ALT) 13 See_Comment [Auto mated message] The system which ge nerated this result transmit rosendo reference range : <=65. The reference range was not used to interpr et this result as josi l/abnormal. [facility] [employer] [id number] 06:53:00 Test Item Value Reference Range Interpretation Comments AST (test code = AST) 24 See_Comment [Auto mated message] The system which ge nerated this result transmit rosendo reference range : <=37. The reference range was not used to interpr et this result as josi l/abnormal. [facility] [employer] [id number] 06:53:00 Test Item Value Reference Range Interpretation Comments Alk Phos (test code = Alk Phos) 79 39-136 [id number] 06:53:00 Test Item Value Reference Range Interpretation Comments Bili Total (test code = Bili Total) 0.9 0.2-1.3 [place] [id number] 06:53:00 Test Item Value Reference Range Interpretation Comments B/C Ratio (test code = B/C Ratio) 22 1 6-25 [place] [id number] 06:53:00 Test Item Value Reference Range Interpretation Comments Globulin (test code = Globulin) 2.6 2.7-4.2 [place] 542562-02-22 06:53:00 Test Item Value Reference Range Interpretation Comments A/G Ratio (test code = A/G Ratio) 0.6 1 0.7-1.6 [facility]2022-02-22 06:53:00 Test Item Value Reference Range Interpretation Comments HS Troponin I (test code = HS Troponin 23 I) [place] 542562-02-22 06:53:00 Test Item Value Reference Range Interpretation Comments Total Protein (test code = Total 4.2 6.4-8.4 Protein) [place] 542562-02-22 06:53:00 Test Item Value Reference Range Interpretation Comments Albumin Lvl (test code = Albumin Lvl) 1.6 3.5-5.0 [facility] [id number] 06:53:00 Test Item Value Reference Range Interpretation Comments ALT (test code = ALT) 13 See_Comment [Auto mated message] The system which ge nerated this result transmit rosendo reference range : <=65. The reference range was not used to interpr et this result as josi l/abnormal. [facility] [id number] 06:53:00 Test Item Value Reference Range Interpretation Comments AST (test code = AST) 24 See_Comment [Auto mated message] The system which ge nerated this result transmit rosendo reference range : <=37. The reference range was not used to interpr et this result as josi l/abnormal. [facility] [id number] 06:53:00 Test Item Value Reference Range Interpretation Comments Alk Phos (test code = Alk Phos) 79 39-136 [facility] [id number] 06:53:00 Test Item Value Reference Range Interpretation Comments Bili Total (test code = Bili Total) 0.9 0.2-1.3 [facility] [id number] 06:53:00 Test Item Value Reference Range Interpretation Comments B/C Ratio (test code = B/C Ratio) 22 1 6-25 [facility] ResourcesSaperionCHEM [id number] 06:53:00 Test Item Value Reference Range Interpretation Comments Globulin (test code = Globulin) 2.6 2.7-4.2 [facility] [id number] 06:53:00 Test Item Value Reference Range Interpretation Comments A/G Ratio (test code = A/G Ratio) 0.6 1 0.7-1.6 [facility] [id number] 06:53:00 Test Item Value Reference Range Interpretation Comments HS Troponin I (test code = HS Troponin 23 I) [facility] [id number] 06:53:00 Test Item Value Reference Range Interpretation Comments Total Protein (test code = Total 4.2 6.4-8.4 Protein) [facility] [id number] 06:53:00 Test Item Value Reference Range Interpretation Comments Albumin Lvl (test code = Albumin Lvl) 1.6 3.5-5.0 [facility] [id number] 06:53:00 Test Item Value Reference Range Interpretation Comments ALT (test code = ALT) 13 See_Comment [Auto mated message] The system which ge nerated this result transmit rosendo reference range : <=65. The reference range was not used to interpr et this result as josi l/abnormal. [facility] [employer] [id number] 06:53:00 Test Item Value Reference Range Interpretation Comments AST (test code = AST) 24 See_Comment [Auto mated message] The system which ge nerated this result transmit rosendo reference range : <=37. The reference range was not used to interpr et this result as josi l/abnormal. [facility] [employer] [id number] 06:53:00 Test Item Value Reference Range Interpretation Comments Alk Phos (test code = Alk Phos) 79 39-136 [facility] [id number] 06:53:00 Test Item Value Reference Range Interpretation Comments Bili Total (test code = Bili Total) 0.9 0.2-1.3 [facility] [id number] 06:53:00 Test Item Value Reference Range Interpretation Comments B/C Ratio (test code = B/C Ratio) 22 1 6-25 [facility] [id number] 06:53:00 Test Item Value Reference Range Interpretation Comments Globulin (test code = Globulin) 2.6 2.7-4.2 [facility] [id number] 06:53:00 Test Item Value Reference Range Interpretation Comments A/G Ratio (test code = A/G Ratio) 0.6 1 0.7-1.6 [facility]annCARDIAC [id number] 06:53:00 Test Item Value Reference Range Interpretation Comments HS Troponin I (test code = HS Troponin 23 I) [facility] [id number] 06:53:00 Test Item Value Reference Range Interpretation Comments Total Protein (test code = Total 4.2 6.4-8.4 Protein) [facility] [id number] 06:53:00 Test Item Value Reference Range Interpretation Comments Albumin Lvl (test code = Albumin Lvl) 1.6 3.5-5.0 [facility] [id number] 06:53:00 Test Item Value Reference Range Interpretation Comments ALT (test code = ALT) 13 See_Comment [Auto mated message] The system which ge nerated this result transmit rosendo reference range : <=65. The reference range was not used to interpr et this result as josi l/abnormal. [facility] [employer] [id number] 06:53:00 Test Item Value Reference Range Interpretation Comments AST (test code = AST) 24 See_Comment [Auto mated message] The system which ge nerated this result transmit rosendo reference range : <=37. The reference range was not used to interpr et this result as josi l/abnormal. [facility] [employer] [id number] 06:53:00 Test Item Value Reference Range Interpretation Comments Alk Phos (test code = Alk Phos) 79 39-136 [facility] [id number] 06:53:00 Test Item Value Reference Range Interpretation Comments Bili Total (test code = Bili Total) 0.9 0.2-1.3 [facility] [employer] [id number] 06:53:00 Test Item Value Reference Range Interpretation Comments B/C Ratio (test code = B/C Ratio) 22 1 6-25 [facility] [id number] 06:53:00 Test Item Value Reference Range Interpretation Comments Globulin (test code = Globulin) 2.6 2.7-4.2 [facility] [id number] 06:53:00 Test Item Value Reference Range Interpretation Comments A/G Ratio (test code = A/G Ratio) 0.6 1 0.7-1.6 [facility] [id number] 06:53:00 Test Item Value Reference Range Interpretation Comments HS Troponin I (test code = HS Troponin 23 I) [facility] [id number] 06:53:00 Test Item Value Reference Range Interpretation Comments Total Protein (test code = Total 4.2 6.4-8.4 Protein) [facility] [id number] 06:53:00 Test Item Value Reference Range Interpretation Comments Albumin Lvl (test code = Albumin Lvl) 1.6 3.5-5.0 [facility] [id number] 06:53:00 Test Item Value Reference Range Interpretation Comments ALT (test code = ALT) 13 See_Comment [Auto mated message] The system which ge nerated this result transmit rosendo reference range : <=65. The reference range was not used to interpr et this result as josi l/abnormal. [facility] [employer] [id number] 06:53:00 Test Item Value Reference Range Interpretation Comments AST (test code = AST) 24 See_Comment [Auto mated message] The system which ge nerated this result transmit rosendo reference range : <=37. The reference range was not used to interpr et this result as josi l/abnormal. [facility] [employer] [id number] 06:53:00 Test Item Value Reference Range Interpretation Comments Alk Phos (test code = Alk Phos) 79 39-136 [facility] [id number] 06:53:00 Test Item Value Reference Range Interpretation Comments Bili Total (test code = Bili Total) 0.9 0.2-1.3 [facility] [id number] 06:53:00 Test Item Value Reference Range Interpretation Comments B/C Ratio (test code = B/C Ratio) 22 1 6-25 [facility] [id number] 06:53:00 Test Item Value Reference Range Interpretation Comments Globulin (test code = Globulin) 2.6 2.7-4.2 [facility] [id number] 06:53:00 Test Item Value Reference Range Interpretation Comments A/G Ratio (test code = A/G Ratio) 0.6 1 0.7-1.6 [facility]ARD[facility] [id number] 06:53:00 Test Item Value Reference Range Interpretation Comments HS Troponin I (test code = HS Troponin 23 I) [facility] [id number] 06:53:00 Test Item Value Reference Range Interpretation Comments Total Protein (test code = Total 4.2 6.4-8.4 Protein) [facility]ionUNC [facility] [id number] 06:53:00 Test Item Value Reference Range Interpretation Comments Albumin Lvl (test code = Albumin Lvl) 1.6 3.5-5.0 [facility] [id number] 06:53:00 Test Item Value Reference Range Interpretation Comments ALT (test code = ALT) 13 See_Comment [Auto mated message] The system which ge nerated this result transmit rosendo reference range : <=65. The reference range was not used to interpr et this result as josi l/abnormal. [facility] [id number] 06:53:00 Test Item Value Reference Range Interpretation Comments AST (test code = AST) 24 See_Comment [Auto mated message] The system which ge nerated this result transmit rosendo reference range : <=37. The reference range was not used to interpr et this result as josi l/abnormal. [facility] [employer] [id number] 06:53:00 Test Item Value Reference Range Interpretation Comments Alk Phos (test code = Alk Phos) 79 39-136 [facility] [id number] 06:53:00 Test Item Value Reference Range Interpretation Comments Bili Total (test code = Bili Total) 0.9 0.2-1.3 [facility] [id number] 06:53:00 Test Item Value Reference Range Interpretation Comments B/C Ratio (test code = B/C Ratio) 22 1 6-25 [facility] [id number] 06:53:00 Test Item Value Reference Range Interpretation Comments Globulin (test code = Globulin) 2.6 2.7-4.2 [facility] [id number] 06:53:00 Test Item Value Reference Range Interpretation Comments A/G Ratio (test code = A/G Ratio) 0.6 1 0.7-1.6 [facility] [id number] 06:53:00 Test Item Value Reference Range Interpretation Comments HS Troponin I (test code = HS Troponin 23 I) [facility] [id number] 06:53:00 Test Item Value Reference Range Interpretation Comments Total Protein (test code = Total 4.2 6.4-8.4 Protein) [facility] [id number] 06:53:00 Test Item Value Reference Range Interpretation Comments Albumin Lvl (test code = Albumin Lvl) 1.6 3.5-5.0 [facility] [id number] 06:53:00 Test Item Value Reference Range Interpretation Comments ALT (test code = ALT) 13 See_Comment [Auto mated message] The system which ge nerated this result transmit rosendo reference range : <=65. The reference range was not used to interpr et this result as josi l/abnormal. [facility] [id number] 06:53:00 Test Item Value Reference Range Interpretation Comments AST (test code = AST) 24 See_Comment [Auto mated message] The system which ge nerated this result transmit rosendo reference range : <=37. The reference range was not used to interpr et this result as josi l/abnormal. [facility] [employer] [id number] 06:53:00 Test Item Value Reference Range Interpretation Comments Alk Phos (test code = Alk Phos) 79 39-136 [facility] [id number] 06:53:00 Test Item Value Reference Range Interpretation Comments Bili Total (test code = Bili Total) 0.9 0.2-1.3 [facility] [id number] 06:53:00 Test Item Value Reference Range Interpretation Comments B/C Ratio (test code = B/C Ratio) 22 1 6-25 [facility] [id number] 06:53:00 Test Item Value Reference Range Interpretation Comments Globulin (test code = Globulin) 2.6 2.7-4.2 [facility] [employer] [id number] 06:53:00 Test Item Value Reference Range Interpretation Comments A/G Ratio (test code = A/G Ratio) 0.6 1 0.7-1.6 [facility] DGSEannCARDIAC [id number] 06:53:00 Test Item Value Reference Range Interpretation Comments HS Troponin I (test code = HS Troponin 23 I) [facility] [employer] [id number] 06:53:00 Test Item Value Reference Range Interpretation Comments Total Protein (test code = Total 4.2 6.4-8.4 Protein) [facility] [employer] [id number] 06:53:00 Test Item Value Reference Range Interpretation Comments Albumin Lvl (test code = Albumin Lvl) 1.6 3.5-5.0 [facility] [employer] [id number] 06:53:00 Test Item Value Reference Range Interpretation Comments ALT (test code = ALT) 13 See_Comment [Auto mated message] The system which ge nerated this result transmit rosendo reference range : <=65. The reference range was not used to interpr et this result as josi l/abnormal. [facility] [employer] [id number] 06:53:00 Test Item Value Reference Range Interpretation Comments AST (test code = AST) 24 See_Comment [Auto mated message] The system which ge nerated this result transmit rosendo reference range : <=37. The reference range was not used to interpr et this result as josi l/abnormal. [facility] [employer] [id number] 06:53:00 Test Item Value Reference Range Interpretation Comments Alk Phos (test code = Alk Phos) 79 39-136 [facility] [employer] [id number] 06:53:00 Test Item Value Reference Range Interpretation Comments Bili Total (test code = Bili Total) 0.9 0.2-1.3 [facility] [employer] [id number] 06:53:00 Test Item Value Reference Range Interpretation Comments B/C Ratio (test code = B/C Ratio) 22 1 6-25 [facility] [employer] [id number] 06:53:00 Test Item Value Reference Range Interpretation Comments Globulin (test code = Globulin) 2.6 2.7-4.2 [place] [id number] 06:53:00 Test Item Value Reference Range Interpretation Comments A/G Ratio (test code = A/G Ratio) 0.6 1 0.7-1.6 [place] [id number] 03:50:00 Test Item Value Reference Range Interpretation Comments Lactic Acid Lvl (test code = Lactic 0.9 0.5-2.2 Acid Lvl) [place] [id number] 03:50:00 Test Item Value Reference Range Interpretation Comments Lactic Acid Lvl (test code = Lactic 0.9 0.5-2.2 Acid Lvl) [address]02-22 03:50:00 Test Item Value Reference Range Interpretation Comments Lactic Acid Lvl (test code = Lactic 0.9 0.5-2.2 Acid Lvl) [address]02-22 03:50:00 Test Item Value Reference Range Interpretation Comments Lactic Acid Lvl (test code = Lactic 0.9 0.5-2.2 Acid Lvl) [place] [id number] 03:50:00 Test Item Value Reference Range Interpretation Comments Lactic Acid Lvl (test code = Lactic 0.9 0.5-2.2 Acid Lvl) [address]02-22 03:50:00 Test Item Value Reference Range Interpretation Comments Lactic Acid Lvl (test code = Lactic 0.9 0.5-2.2 Acid Lvl) [address]02-22 03:50:00 Test Item Value Reference Range Interpretation Comments Lactic Acid Lvl (test code = Lactic 0.9 0.5-2.2 Acid Lvl) [place] [id number] 03:50:00 Test Item Value Reference Range Interpretation Comments Lactic Acid Lvl (test code = Lactic 0.9 0.5-2.2 Acid Lvl) [address]02-22 03:50:00 Test Item Value Reference Range Interpretation Comments Lactic Acid Lvl (test code = Lactic 0.9 0.5-2.2 Acid Lvl) [address]02-22 03:50:00 Test Item Value Reference Range Interpretation Comments Lactic Acid Lvl (test code = Lactic 0.9 0.5-2.2 Acid Lvl) [facility]2022-02-22 03:50:00 Test Item Value Reference Range Interpretation Comments Lactic Acid Lvl (test code = Lactic 0.9 0.5-2.2 Acid Lvl) [facility]2022-02-22 03:50:00 Test Item Value Reference Range Interpretation Comments Lactic Acid Lvl (test code = Lactic 0.9 0.5-2.2 Acid Lvl) [facility] AND [id number] 16:18:00 Test Item Value Reference Range Interpretation Comments UA Leuk Est (test Negative (01/01/22 10:18 code = UA Leuk Est) AM) [facility] AND [id number] 16:18:00 Test Item Value Reference Range Interpretation Comments UA WBC (test code = 1 See_Comment [Automa rosendo message] The UA WBC) system which ge nerated this result transmit rosendo reference range : <=5. The reference range was not used to interpr et this result as josi l/abnormal. [facility] AND [id number] 16:18:00 Test Item Value Reference Range Interpretation Comments UA RBC (test code = 2 See_Comment [Automa rosendo message] The UA RBC) system which ge nerated this result transmit rosendo reference range : <=2. The reference range was not used to interpr et this result as josi l/abnormal. [facility] AND [id number] 16:18:00 Test Item Value Reference Range Interpretation Comments UA Mucus (test code = UA Mucus) Few /LPF [facility] AND [id number] 16:18:00 Test Item Value Reference Range Interpretation Comments UA Trans Epi (test code = UA Trans Epi) 1 [facility] AND [id number] 16:18:00 Test Item Value Reference Range Interpretation Comments UA Sq Epi (test code = UA Sq Epi) None Seen [facility]2022-02-21 16:18:00 Test Item Value Reference Range Interpretation Comments Total Protein (test code = Total 4.2 6.4-8.4 Protein) [facility]2022-02-21 16:18:00 Test Item Value Reference Range Interpretation Comments Albumin Lvl (test code = Albumin Lvl) 1.7 3.5-5.0 [place] [id number] 16:18:00 Test Item Value Reference Range Interpretation Comments ALT (test code = ALT) 17 See_Comment [Auto mated message] The system which ge nerated this result transmit rosendo reference range : <=65. The reference range was not used to interpr et this result as josi l/abnormal. [facility] [employer] [id number] 16:18:00 Test Item Value Reference Range Interpretation Comments AST (test code = AST) 28 See_Comment [Auto mated message] The system which ge nerated this result transmit rosendo reference range : <=37. The reference range was not used to interpr et this result as josi l/abnormal. [employer] [id number] 16:18:00 Test Item Value Reference Range Interpretation Comments Alk Phos (test code = Alk Phos) 65 39-136 [facility] [employer] [id number] 16:18:00 Test Item Value Reference Range Interpretation Comments Bili Total (test code = Bili Total) 0.7 0.2-1.3 [facility] [employer] [id number] 16:18:00 Test Item Value Reference Range Interpretation Comments B/C Ratio (test code = B/C Ratio) 25 1 6-25 [facility] [employer] [id number] 16:18:00 Test Item Value Reference Range Interpretation Comments Globulin (test code = Globulin) 2.5 2.7-4.2 [facility] [employer] [id number] 16:18:00 Test Item Value Reference Range Interpretation Comments A/G Ratio (test code = A/G Ratio) 0.7 1 0.7-1.6 [facility] [employer] [id number] 16:18:00 Test Item Value Reference Range Interpretation Comments Magnesium Lvl (test code = Magnesium 1.8 1.8-2.4 Lvl) [facility] [employer] [id number] 16:18:00 Test Item Value Reference Range Interpretation Comments Phosphorus (test code = Phosphorus) 3.1 2.5-4.5 [facility] [id number] 16:18:00 Test Item Value Reference Range Interpretation Comments UA Color (test code = Light Yellow UA Color) *NA*(01/01/22 10:18 AM) [facility] AND [id number] 16:18:00 Test Item Value Reference Range Interpretation Comments UA Turbidity (test code = Clear (01/01/22 10:18 UA Turbidity) AM) [facility] AND [id number] 16:18:00 Test Item Value Reference Range Interpretation Comments UA Spec Grav (test code = UA Spec 1.051 1 Grav) [facility] AND [id number] 16:18:00 Test Item Value Reference Range Interpretation Comments UA pH (test code = UA pH) 6.0 1 5.0-8.0 [facility] AND [id number] 16:18:00 Test Item Value Reference Range Interpretation Comments UA Protein (test code = UA Negative mg/dL Protein) [facility] AND [id number] 16:18:00 Test Item Value Reference Range Interpretation Comments UA Glucose (test code = UA Negative mg/dL Glucose) [facility] AND [id number] 16:18:00 Test Item Value Reference Range Interpretation Comments UA Ketones (test code = UA Negative mg/dL Ketones) [facility] AND [id number] 16:18:00 Test Item Value Reference Range Interpretation Comments UA Bili (test code = Negative *NA*(01/01/22 UA Bili) 10:18 AM) [facility] AND [id number] 16:18:00 Test Item Value Reference Range Interpretation Comments UA Blood (test code = Moderate *ABN*(01/01/22 UA Blood) 10:18 AM) [facility] AND [id number] 16:18:00 Test Item Value Reference Range Interpretation Comments UA Urobilinogen (test code = UA no gt 0.1-1.0 Urobilinogen) [facility] AND [id number] 16:18:00 Test Item Value Reference Range Interpretation Comments UA Nitrite (test code Negative (01/01/22 10:18 = UA Nitrite) AM) [facility] [id number] 16:18:00 Test Item Value Reference Range Interpretation Comments Total Protein (test code = Total 4.2 6.4-8.4 Protein) [facility] [id number] 16:18:00 Test Item Value Reference Range Interpretation Comments Albumin Lvl (test code = Albumin Lvl) 1.7 3.5-5.0 [facility] [id number] 16:18:00 Test Item Value Reference Range Interpretation Comments ALT (test code = ALT) 17 See_Comment [Auto mated message] The system which ge nerated this result transmit rosendo reference range : <=65. The reference range was not used to interpr et this result as josi l/abnormal. [email or web address] [id number] 16:18:00 Test Item Value Reference Range Interpretation Comments AST (test code = AST) 28 See_Comment [Auto mated message] The system which ge nerated this result transmit rosendo reference range : <=37. The reference range was not used to interpr et this result as josi l/abnormal. [email or web address] [id number] 16:18:00 Test Item Value Reference Range Interpretation Comments Alk Phos (test code = Alk Phos) 65 39-136 [email or web address] [id number] 16:18:00 Test Item Value Reference Range Interpretation Comments Bili Total (test code = Bili Total) 0.7 0.2-1.3 [facility] [id number] 16:18:00 Test Item Value Reference Range Interpretation Comments B/C Ratio (test code = B/C Ratio) 25 1 6-25 [facility] [id number] 16:18:00 Test Item Value Reference Range Interpretation Comments Globulin (test code = Globulin) 2.5 2.7-4.2 [facility] [id number] 16:18:00 Test Item Value Reference Range Interpretation Comments A/G Ratio (test code = A/G Ratio) 0.7 1 0.7-1.6 [facility] [id number] 16:18:00 Test Item Value Reference Range Interpretation Comments Magnesium Lvl (test code = Magnesium 1.8 1.8-2.4 Lvl) [facility] [id number] 16:18:00 Test Item Value Reference Range Interpretation Comments Phosphorus (test code = Phosphorus) 3.1 2.5-4.5 [facility] [id number] 16:18:00 Test Item Value Reference Range Interpretation Comments UA Color (test code = Light Yellow UA Color) *NA*(01/01/22 10:18 AM) [facility] [id number] 16:18:00 Test Item Value Reference Range Interpretation Comments UA Turbidity (test code = Clear (01/01/22 10:18 UA Turbidity) AM) [facility] AND [id number] 16:18:00 Test Item Value Reference Range Interpretation Comments UA Spec Grav (test code = UA Spec 1.051 1 Grav) [facility] AND [id number] 16:18:00 Test Item Value Reference Range Interpretation Comments UA pH (test code = UA pH) 6.0 1 5.0-8.0 [facility] AND [id number] 16:18:00 Test Item Value Reference Range Interpretation Comments UA Protein (test code = UA Negative mg/dL Protein) [facility] AND [id number] 16:18:00 Test Item Value Reference Range Interpretation Comments UA Glucose (test code = UA Negative mg/dL Glucose) [facility] AND [id number] 16:18:00 Test Item Value Reference Range Interpretation Comments UA Ketones (test code = UA Negative mg/dL Ketones) [facility] AND [id number] 16:18:00 Test Item Value Reference Range Interpretation Comments UA Bili (test code = Negative *NA*(01/01/22 UA Bili) 10:18 AM) [facility] AND [id number] 16:18:00 Test Item Value Reference Range Interpretation Comments UA Blood (test code = Moderate *ABN*(01/01/22 UA Blood) 10:18 AM) [facility] AND [id number] 16:18:00 Test Item Value Reference Range Interpretation Comments UA Urobilinogen (test code = UA no gt 0.1-1.0 Urobilinogen) [facility] AND [id number] 16:18:00 Test Item Value Reference Range Interpretation Comments UA Nitrite (test code Negative (01/01/22 10:18 = UA Nitrite) AM) [facility] AND [id number] 16:18:00 Test Item Value Reference Range Interpretation Comments UA Leuk Est (test Negative (01/01/22 10:18 code = UA Leuk Est) AM) [facility] AND [id number] 16:18:00 Test Item Value Reference Range Interpretation Comments UA WBC (test code = 1 See_Comment [Automa rosendo message] The UA WBC) system which ge nerated this result transmit rosendo reference range : <=5. The reference range was not used to interpr et this result as josi l/abnormal. [facility] AND [id number] 16:18:00 Test Item Value Reference Range Interpretation Comments UA RBC (test code = 2 See_Comment [Automa rosendo message] The UA RBC) system which ge nerated this result transmit rosendo reference range : <=2. The reference range was not used to interpr et this result as josi l/abnormal. [facility] AND [id number] 16:18:00 Test Item Value Reference Range Interpretation Comments UA Mucus (test code = UA Mucus) Few /LPF [facility] AND [id number] 16:18:00 Test Item Value Reference Range Interpretation Comments UA Trans Epi (test code = UA Trans Epi) 1 [facility] AND [id number] 16:18:00 Test Item Value Reference Range Interpretation Comments UA Sq Epi (test code = UA Sq Epi) None Seen [facility]2022-02-21 16:18:00 Test Item Value Reference Range Interpretation Comments Total Protein (test code = Total 4.2 6.4-8.4 Protein) [facility]2022-02-21 16:18:00 Test Item Value Reference Range Interpretation Comments Albumin Lvl (test code = Albumin Lvl) 1.7 3.5-5.0 [facility]2022-02-21 16:18:00 Test Item Value Reference Range Interpretation Comments ALT (test code = ALT) 17 See_Comment [Auto mated message] The system which ge nerated this result transmit rosendo reference range : <=65. The reference range was not used to interpr et this result as josi l/abnormal. [facility] [id number] 16:18:00 Test Item Value Reference Range Interpretation Comments AST (test code = AST) 28 See_Comment [Auto mated message] The system which ge nerated this result transmit rosendo reference range : <=37. The reference range was not used to interpr et this result as josi l/abnormal. [facility] [id number] 16:18:00 Test Item Value Reference Range Interpretation Comments Alk Phos (test code = Alk Phos) 65 39-136 [facility] [id number] 16:18:00 Test Item Value Reference Range Interpretation Comments Bili Total (test code = Bili Total) 0.7 0.2-1.3 [facility] [id number] 16:18:00 Test Item Value Reference Range Interpretation Comments B/C Ratio (test code = B/C Ratio) 25 1 6-25 [facility] [id number] 16:18:00 Test Item Value Reference Range Interpretation Comments Globulin (test code = Globulin) 2.5 2.7-4.2 [facility]2022-02-21 16:18:00 Test Item Value Reference Range Interpretation Comments A/G Ratio (test code = A/G Ratio) 0.7 1 0.7-1.6 [facility]2022-02-21 16:18:00 Test Item Value Reference Range Interpretation Comments Magnesium Lvl (test code = Magnesium 1.8 1.8-2.4 Lvl) [facility]2022-02-21 16:18:00 Test Item Value Reference Range Interpretation Comments Phosphorus (test code = Phosphorus) 3.1 2.5-4.5 [facility] [id number] 16:18:00 Test Item Value Reference Range Interpretation Comments UA Color (test code = Light Yellow UA Color) *NA*(01/01/22 10:18 AM) [facility] [id number] 16:18:00 Test Item Value Reference Range Interpretation Comments UA Turbidity (test code = Clear (01/01/22 10:18 UA Turbidity) AM) [facility] [id number] 16:18:00 Test Item Value Reference Range Interpretation Comments UA Spec Grav (test code = UA Spec 1.051 1 Grav) [facility] [id number] 16:18:00 Test Item Value Reference Range Interpretation Comments UA pH (test code = UA pH) 6.0 1 5.0-8.0 [facility] [id number] 16:18:00 Test Item Value Reference Range Interpretation Comments UA Protein (test code = UA Negative mg/dL Protein) [facility] [id number] 16:18:00 Test Item Value Reference Range Interpretation Comments UA Glucose (test code = UA Negative mg/dL Glucose) [facility] [id number] 16:18:00 Test Item Value Reference Range Interpretation Comments UA Ketones (test code = UA Negative mg/dL Ketones) [facility] AND [id number] 16:18:00 Test Item Value Reference Range Interpretation Comments UA Bili (test code = Negative *NA*(01/01/22 UA Bili) 10:18 AM) [facility] AND [id number] 16:18:00 Test Item Value Reference Range Interpretation Comments UA Blood (test code = Moderate *ABN*(01/01/22 UA Blood) 10:18 AM) [facility] AND [id number] 16:18:00 Test Item Value Reference Range Interpretation Comments UA Urobilinogen (test code = UA no gt 0.1-1.0 Urobilinogen) [facility] AND [id number] 16:18:00 Test Item Value Reference Range Interpretation Comments UA Nitrite (test code Negative (01/01/22 10:18 = UA Nitrite) AM) [facility] AND [id number] 16:18:00 Test Item Value Reference Range Interpretation Comments UA Leuk Est (test Negative (01/01/22 10:18 code = UA Leuk Est) AM) [facility] AND [id number] 16:18:00 Test Item Value Reference Range Interpretation Comments UA WBC (test code = 1 See_Comment [Automa rosendo message] The UA WBC) system which ge nerated this result transmit rosendo reference range : <=5. The reference range was not used to interpr et this result as josi l/abnormal. [facility] AND [id number] 16:18:00 Test Item Value Reference Range Interpretation Comments UA RBC (test code = 2 See_Comment [Automa rosendo message] The UA RBC) system which ge nerated this result transmit rosendo reference range : <=2. The reference range was not used to interpr et this result as josi l/abnormal. [facility] AND [id number] 16:18:00 Test Item Value Reference Range Interpretation Comments UA Mucus (test code = UA Mucus) Few /LPF [facility] [id number] 16:18:00 Test Item Value Reference Range Interpretation Comments UA Trans Epi (test code = UA Trans Epi) 1 [facility] [id number] 16:18:00 Test Item Value Reference Range Interpretation Comments UA Sq Epi (test code = UA Sq Epi) None Seen [facility]2022-02-21 16:18:00 Test Item Value Reference Range Interpretation Comments Total Protein (test code = Total 4.2 6.4-8.4 Protein) [facility]2022-02-21 16:18:00 Test Item Value Reference Range Interpretation Comments Albumin Lvl (test code = Albumin Lvl) 1.7 3.5-5.0 [facility]2022-02-21 16:18:00 Test Item Value Reference Range Interpretation Comments ALT (test code = ALT) 17 See_Comment [Auto mated message] The system which ge nerated this result transmit rosendo reference range : <=65. The reference range was not used to interpr et this result as josi l/abnormal. [facility]2022-02-21 16:18:00 Test Item Value Reference Range Interpretation Comments AST (test code = AST) 28 See_Comment [Auto mated message] The system which ge nerated this result transmit rosendo reference range : <=37. The reference range was not used to interpr et this result as josi l/abnormal. [facility]2022-02-21 16:18:00 Test Item Value Reference Range Interpretation Comments Alk Phos (test code = Alk Phos) 65 39-136 [facility] [id number] 16:18:00 Test Item Value Reference Range Interpretation Comments Bili Total (test code = Bili Total) 0.7 0.2-1.3 [facility]2022-02-21 16:18:00 Test Item Value Reference Range Interpretation Comments B/C Ratio (test code = B/C Ratio) 25 1 6-25 [place] [id number] 16:18:00 Test Item Value Reference Range Interpretation Comments Globulin (test code = Globulin) 2.5 2.7-4.2 [facility] [id number] 16:18:00 Test Item Value Reference Range Interpretation Comments A/G Ratio (test code = A/G Ratio) 0.7 1 0.7-1.6 [facility] [id number] 16:18:00 Test Item Value Reference Range Interpretation Comments Magnesium Lvl (test code = Magnesium 1.8 1.8-2.4 Lvl) [facility] [id number] 16:18:00 Test Item Value Reference Range Interpretation Comments Phosphorus (test code = Phosphorus) 3.1 2.5-4.5 [facility] AND [id number] 16:18:00 Test Item Value Reference Range Interpretation Comments UA Color (test code = Light Yellow UA Color) *NA*(01/01/22 10:18 AM) [facility] AND [id number] 16:18:00 Test Item Value Reference Range Interpretation Comments UA Turbidity (test code = Clear (01/01/22 10:18 UA Turbidity) AM) [facility] AND [id number] 16:18:00 Test Item Value Reference Range Interpretation Comments UA Spec Grav (test code = UA Spec 1.051 1 Grav) [facility] AND [id number] 16:18:00 Test Item Value Reference Range Interpretation Comments UA pH (test code = UA pH) 6.0 1 5.0-8.0 [facility] AND [id number] 16:18:00 Test Item Value Reference Range Interpretation Comments UA Protein (test code = UA Negative mg/dL Protein) [facility] AND [id number] 16:18:00 Test Item Value Reference Range Interpretation Comments UA Glucose (test code = UA Negative mg/dL Glucose) [facility] AND [id number] 16:18:00 Test Item Value Reference Range Interpretation Comments UA Ketones (test code = UA Negative mg/dL Ketones) [facility] AND [id number] 16:18:00 Test Item Value Reference Range Interpretation Comments UA Bili (test code = Negative *NA*(01/01/22 UA Bili) 10:18 AM) [facility] AND [id number] 16:18:00 Test Item Value Reference Range Interpretation Comments UA Blood (test code = Moderate *ABN*(01/01/22 UA Blood) 10:18 AM) [facility] [id number] 16:18:00 Test Item Value Reference Range Interpretation Comments UA Urobilinogen (test code = UA no gt 0.1-1.0 Urobilinogen) [facility] [id number] 16:18:00 Test Item Value Reference Range Interpretation Comments UA Nitrite (test code Negative (01/01/22 10:18 = UA Nitrite) AM) [facility] [id number] 16:18:00 Test Item Value Reference Range Interpretation Comments UA Leuk Est (test Negative (01/01/22 10:18 code = UA Leuk Est) AM) [facility] [id number] 16:18:00 Test Item Value Reference Range Interpretation Comments UA WBC (test code = 1 See_Comment [Automa rosendo message] The UA WBC) system which ge nerated this result transmit rosendo reference range : <=5. The reference range was not used to interpr et this result as josi l/abnormal. [facility] [id number] 16:18:00 Test Item Value Reference Range Interpretation Comments UA RBC (test code = 2 See_Comment [Automa rosendo message] The UA RBC) system which ge nerated this result transmit rosendo reference range : <=2. The reference range was not used to interpr et this result as josi l/abnormal. [facility] [id number] 16:18:00 Test Item Value Reference Range Interpretation Comments UA Mucus (test code = UA Mucus) Few /LPF [facility] AND [id number] 16:18:00 Test Item Value Reference Range Interpretation Comments UA Trans Epi (test code = UA Trans Epi) 1 [facility] [id number] 16:18:00 Test Item Value Reference Range Interpretation Comments UA Sq Epi (test code = UA Sq Epi) None Seen [facility]ann[facility] [id number] 16:18:00 Test Item Value Reference Range Interpretation Comments Total Protein (test code = Total 4.2 6.4-8.4 Protein) [facility] [id number] 16:18:00 Test Item Value Reference Range Interpretation Comments Albumin Lvl (test code = Albumin Lvl) 1.7 3.5-5.0 [facility] [id number] 16:18:00 Test Item Value Reference Range Interpretation Comments ALT (test code = ALT) 17 See_Comment [Auto mated message] The system which ge nerated this result transmit rosendo reference range : <=65. The reference range was not used to interpr et this result as josi l/abnormal. [facility] [employer] [id number] 16:18:00 Test Item Value Reference Range Interpretation Comments AST (test code = AST) 28 See_Comment [Auto mated message] The system which ge nerated this result transmit rosendo reference range : <=37. The reference range was not used to interpr et this result as josi l/abnormal. [facility] [employer] [id number] 16:18:00 Test Item Value Reference Range Interpretation Comments Alk Phos (test code = Alk Phos) 65 39-136 [facility] [employer] [id number] 16:18:00 Test Item Value Reference Range Interpretation Comments Bili Total (test code = Bili Total) 0.7 0.2-1.3 [facility] [employer] [id number] 16:18:00 Test Item Value Reference Range Interpretation Comments B/C Ratio (test code = B/C Ratio) 25 1 6-25 [facility] [employer] [id number] 16:18:00 Test Item Value Reference Range Interpretation Comments Globulin (test code = Globulin) 2.5 2.7-4.2 [facility] [employer] [id number] 16:18:00 Test Item Value Reference Range Interpretation Comments A/G Ratio (test code = A/G Ratio) 0.7 1 0.7-1.6 [facility] [employer] [id number] 16:18:00 Test Item Value Reference Range Interpretation Comments Magnesium Lvl (test code = Magnesium 1.8 1.8-2.4 Lvl) [facility] [employer] [id number] 16:18:00 Test Item Value Reference Range Interpretation Comments Phosphorus (test code = Phosphorus) 3.1 2.5-4.5 [facility] [id number] 16:18:00 Test Item Value Reference Range Interpretation Comments UA Color (test code = Light Yellow UA Color) *NA*(01/01/22 10:18 AM) [facility] AND [id number] 16:18:00 Test Item Value Reference Range Interpretation Comments UA Turbidity (test code = Clear (01/01/22 10:18 UA Turbidity) AM) [facility] AND [id number] 16:18:00 Test Item Value Reference Range Interpretation Comments UA Spec Grav (test code = UA Spec 1.051 1 Grav) [facility] AND [id number] 16:18:00 Test Item Value Reference Range Interpretation Comments UA pH (test code = UA pH) 6.0 1 5.0-8.0 [facility] AND [id number] 16:18:00 Test Item Value Reference Range Interpretation Comments UA Protein (test code = UA Negative mg/dL Protein) [facility] AND [id number] 16:18:00 Test Item Value Reference Range Interpretation Comments UA Glucose (test code = UA Negative mg/dL Glucose) [facility] AND [id number] 16:18:00 Test Item Value Reference Range Interpretation Comments UA Ketones (test code = UA Negative mg/dL Ketones) [facility] [id number] 16:18:00 Test Item Value Reference Range Interpretation Comments UA Bili (test code = Negative *NA*(01/01/22 UA Bili) 10:18 AM) [facility] [place] AND [id number] 16:18:00 Test Item Value Reference Range Interpretation Comments UA Blood (test code = Moderate *ABN*(01/01/22 UA Blood) 10:18 AM) [facility] [place] AND [id number] 16:18:00 Test Item Value Reference Range Interpretation Comments UA Urobilinogen (test code = UA no gt 0.1-1.0 Urobilinogen) [facility] [place] AND [id number] 16:18:00 Test Item Value Reference Range Interpretation Comments UA Nitrite (test code Negative (01/01/22 10:18 = UA Nitrite) AM) [facility] [place] AND [id number] 16:18:00 Test Item Value Reference Range Interpretation Comments UA Leuk Est (test Negative (01/01/22 10:18 code = UA Leuk Est) AM) [facility] [place] AND [id number] 16:18:00 Test Item Value Reference Range Interpretation Comments UA WBC (test code = 1 See_Comment [Automa rosendo message] The UA WBC) system which ge nerated this result transmit rosendo reference range : <=5. The reference range was not used to interpr et this result as josi l/abnormal. [facility] AND [id number] 16:18:00 Test Item Value Reference Range Interpretation Comments UA RBC (test code = 2 See_Comment [Automa rosendo message] The UA RBC) system which ge nerated this result transmit rosendo reference range : <=2. The reference range was not used to interpr et this result as josi l/abnormal. [facility] AND [id number] 16:18:00 Test Item Value Reference Range Interpretation Comments UA Mucus (test code = UA Mucus) Few /LPF [facility] [id number] 16:18:00 Test Item Value Reference Range Interpretation Comments UA Trans Epi (test code = UA Trans Epi) 1 [facility] AND [id number] 16:18:00 Test Item Value Reference Range Interpretation Comments UA Sq Epi (test code = UA Sq Epi) None Seen [facility] [employer] [id number] 16:18:00 Test Item Value Reference Range Interpretation Comments Total Protein (test code = Total 4.2 6.4-8.4 Protein) [facility] [employer] [id number] 16:18:00 Test Item Value Reference Range Interpretation Comments Albumin Lvl (test code = Albumin Lvl) 1.7 3.5-5.0 [facility] [employer] [id number] 16:18:00 Test Item Value Reference Range Interpretation Comments ALT (test code = ALT) 17 See_Comment [Auto mated message] The system which ge nerated this result transmit rosendo reference range : <=65. The reference range was not used to interpr et this result as josi l/abnormal. [facility] [employer] [id number] 16:18:00 Test Item Value Reference Range Interpretation Comments AST (test code = AST) 28 See_Comment [Auto mated message] The system which ge nerated this result transmit rosendo reference range : <=37. The reference range was not used to interpr et this result as josi l/abnormal. [facility] [employer] [id number] 16:18:00 Test Item Value Reference Range Interpretation Comments Alk Phos (test code = Alk Phos) 65 39-136 [facility]2022-02-21 16:18:00 Test Item Value Reference Range Interpretation Comments Bili Total (test code = Bili Total) 0.7 0.2-1.3 [facility]2022-02-21 16:18:00 Test Item Value Reference Range Interpretation Comments B/C Ratio (test code = B/C Ratio) 25 1 6-25 [facility]2022-02-21 16:18:00 Test Item Value Reference Range Interpretation Comments Globulin (test code = Globulin) 2.5 2.7-4.2 [facility]2022-02-21 16:18:00 Test Item Value Reference Range Interpretation Comments A/G Ratio (test code = A/G Ratio) 0.7 1 0.7-1.6 [facility]2022-02-21 16:18:00 Test Item Value Reference Range Interpretation Comments Magnesium Lvl (test code = Magnesium 1.8 1.8-2.4 Lvl) [facility]2022-02-21 16:18:00 Test Item Value Reference Range Interpretation Comments Phosphorus (test code = Phosphorus) 3.1 2.5-4.5 [facility] [place] AND [id number] 16:18:00 Test Item Value Reference Range Interpretation Comments UA Color (test code = Light Yellow UA Color) *NA*(01/01/22 10:18 AM) [facility] [place] AND [id number] 16:18:00 Test Item Value Reference Range Interpretation Comments UA Turbidity (test code = Clear (01/01/22 10:18 UA Turbidity) AM) [facility] [place] AND [id number] 16:18:00 Test Item Value Reference Range Interpretation Comments UA Spec Grav (test code = UA Spec 1.051 1 Grav) [facility] [place] AND [id number] 16:18:00 Test Item Value Reference Range Interpretation Comments UA pH (test code = UA pH) 6.0 1 5.0-8.0 [facility] [place] AND [id number] 16:18:00 Test Item Value Reference Range Interpretation Comments UA Protein (test code = UA Negative mg/dL Protein) [facility] [place] AND [id number] 16:18:00 Test Item Value Reference Range Interpretation Comments UA Glucose (test code = UA Negative mg/dL Glucose) [facility] [place] AND [id number] 16:18:00 Test Item Value Reference Range Interpretation Comments UA Ketones (test code = UA Negative mg/dL Ketones) [facility] [place] AND [id number] 16:18:00 Test Item Value Reference Range Interpretation Comments UA Bili (test code = Negative *NA*(01/01/22 UA Bili) 10:18 AM) [facility] [place] AND [id number] 16:18:00 Test Item Value Reference Range Interpretation Comments UA Blood (test code = Moderate *ABN*(01/01/22 UA Blood) 10:18 AM) [facility] [place] AND [id number] 16:18:00 Test Item Value Reference Range Interpretation Comments UA Urobilinogen (test code = UA no gt 0.1-1.0 Urobilinogen) [facility] [place] AND [id number] 16:18:00 Test Item Value Reference Range Interpretation Comments UA Nitrite (test code Negative (01/01/22 10:18 = UA Nitrite) AM) [facility] [place] AND [id number] 16:18:00 Test Item Value Reference Range Interpretation Comments UA Leuk Est (test Negative (01/01/22 10:18 code = UA Leuk Est) AM) [facility] [place] AND [id number] 16:18:00 Test Item Value Reference Range Interpretation Comments UA WBC (test code = 1 See_Comment [Automa rsoendo message] The UA WBC) system which ge nerated this result transmit rosendo reference range : <=5. The reference range was not used to interpr et this result as josi l/abnormal. [facility] [place] AND [id number] 16:18:00 Test Item Value Reference Range Interpretation Comments UA RBC (test code = 2 See_Comment [Automa rosendo message] The UA RBC) system which ge nerated this result transmit rosendo reference range : <=2. The reference range was not used to interpr et this result as josi l/abnormal. [facility] [place] AND [id number] 16:18:00 Test Item Value Reference Range Interpretation Comments UA Mucus (test code = UA Mucus) Few /LPF [facility] [place] AND [id number] 16:18:00 Test Item Value Reference Range Interpretation Comments UA Trans Epi (test code = UA Trans Epi) 1 [facility] AND [id number] 16:18:00 Test Item Value Reference Range Interpretation Comments UA Sq Epi (test code = UA Sq Epi) None Seen [facility]2022-02-21 16:18:00 Test Item Value Reference Range Interpretation Comments Total Protein (test code = Total 4.2 6.4-8.4 Protein) [facility]2022-02-21 16:18:00 Test Item Value Reference Range Interpretation Comments Albumin Lvl (test code = Albumin Lvl) 1.7 3.5-5.0 [facility]2022-02-21 16:18:00 Test Item Value Reference Range Interpretation Comments ALT (test code = ALT) 17 See_Comment [Auto mated message] The system which ge nerated this result transmit rosendo reference range : <=65. The reference range was not used to interpr et this result as josi l/abnormal. [facility]2022-02-21 16:18:00 Test Item Value Reference Range Interpretation Comments AST (test code = AST) 28 See_Comment [Auto mated message] The system which ge nerated this result transmit rosendo reference range : <=37. The reference range was not used to interpr et this result as josi l/abnormal. [facility]2022-02-21 16:18:00 Test Item Value Reference Range Interpretation Comments Alk Phos (test code = Alk Phos) 65 39-136 [facility]2022-02-21 16:18:00 Test Item Value Reference Range Interpretation Comments Bili Total (test code = Bili Total) 0.7 0.2-1.3 [facility]2022-02-21 16:18:00 Test Item Value Reference Range Interpretation Comments B/C Ratio (test code = B/C Ratio) 25 1 6-25 [place] [id number] 16:18:00 Test Item Value Reference Range Interpretation Comments Globulin (test code = Globulin) 2.5 2.7-4.2 [facility]2022-02-21 16:18:00 Test Item Value Reference Range Interpretation Comments A/G Ratio (test code = A/G Ratio) 0.7 1 0.7-1.6 [facility] [id number] 16:18:00 Test Item Value Reference Range Interpretation Comments Magnesium Lvl (test code = Magnesium 1.8 1.8-2.4 Lvl) [facility] [id number] 16:18:00 Test Item Value Reference Range Interpretation Comments Phosphorus (test code = Phosphorus) 3.1 2.5-4.5 [facility] [place] AND [id number] 16:18:00 Test Item Value Reference Range Interpretation Comments UA Color (test code = Light Yellow UA Color) *NA*(01/01/22 10:18 AM) [facility] [place] AND [id number] 16:18:00 Test Item Value Reference Range Interpretation Comments UA Turbidity (test code = Clear (01/01/22 10:18 UA Turbidity) AM) [facility] [place] AND [id number] 16:18:00 Test Item Value Reference Range Interpretation Comments UA Spec Grav (test code = UA Spec 1.051 1 Grav) [facility] [place] AND [id number] 16:18:00 Test Item Value Reference Range Interpretation Comments UA pH (test code = UA pH) 6.0 1 5.0-8.0 [facility] [place] AND [id number] 16:18:00 Test Item Value Reference Range Interpretation Comments UA Protein (test code = UA Negative mg/dL Protein) [facility] [place] AND [id number] 16:18:00 Test Item Value Reference Range Interpretation Comments UA Glucose (test code = UA Negative mg/dL Glucose) [facility] [place] AND [id number] 16:18:00 Test Item Value Reference Range Interpretation Comments UA Ketones (test code = UA Negative mg/dL Ketones) [facility] [place] AND [id number] 16:18:00 Test Item Value Reference Range Interpretation Comments UA Bili (test code = Negative *NA*(01/01/22 UA Bili) 10:18 AM) [facility] [place] AND [id number] 16:18:00 Test Item Value Reference Range Interpretation Comments UA Blood (test code = Moderate *ABN*(01/01/22 UA Blood) 10:18 AM) [facility] [place] AND [id number] 16:18:00 Test Item Value Reference Range Interpretation Comments UA Urobilinogen (test code = UA no gt 0.1-1.0 Urobilinogen) [facility] [id number] 16:18:00 Test Item Value Reference Range Interpretation Comments UA Nitrite (test code Negative (01/01/22 10:18 = UA Nitrite) AM) [facility] [id number] 16:18:00 Test Item Value Reference Range Interpretation Comments UA Leuk Est (test Negative (01/01/22 10:18 code = UA Leuk Est) AM) [facility] AND [id number] 16:18:00 Test Item Value Reference Range Interpretation Comments UA WBC (test code = 1 See_Comment [Automa rosendo message] The UA WBC) system which ge nerated this result transmit rosendo reference range : <=5. The reference range was not used to interpr et this result as josi l/abnormal. [facility] [place] AND [id number] 16:18:00 Test Item Value Reference Range Interpretation Comments UA RBC (test code = 2 See_Comment [Automa rosendo message] The UA RBC) system which ge nerated this result transmit rosendo reference range : <=2. The reference range was not used to interpr et this result as josi l/abnormal. [facility] [place] AND [id number] 16:18:00 Test Item Value Reference Range Interpretation Comments UA Mucus (test code = UA Mucus) Few /LPF [facility] [place] AND [id number] 16:18:00 Test Item Value Reference Range Interpretation Comments UA Trans Epi (test code = UA Trans Epi) 1 [facility] [place] AND [id number] 16:18:00 Test Item Value Reference Range Interpretation Comments UA Sq Epi (test code = UA Sq Epi) None Seen [facility] [id number] 16:18:00 Test Item Value Reference Range Interpretation Comments Total Protein (test code = Total 4.2 6.4-8.4 Protein) [facility] [id number] 16:18:00 Test Item Value Reference Range Interpretation Comments Albumin Lvl (test code = Albumin Lvl) 1.7 3.5-5.0 [facility] [id number] 16:18:00 Test Item Value Reference Range Interpretation Comments ALT (test code = ALT) 17 See_Comment [Auto mated message] The system which ge nerated this result transmit rosendo reference range : <=65. The reference range was not used to interpr et this result as josi l/abnormal. [facility] [employer] [id number] 16:18:00 Test Item Value Reference Range Interpretation Comments AST (test code = AST) 28 See_Comment [Auto mated message] The system which ge nerated this result transmit rosendo reference range : <=37. The reference range was not used to interpr et this result as josi l/abnormal. [facility] [employer] [id number] 16:18:00 Test Item Value Reference Range Interpretation Comments Alk Phos (test code = Alk Phos) 65 39-136 [facility] [employer] [id number] 16:18:00 Test Item Value Reference Range Interpretation Comments Bili Total (test code = Bili Total) 0.7 0.2-1.3 [facility] [employer] [id number] 16:18:00 Test Item Value Reference Range Interpretation Comments B/C Ratio (test code = B/C Ratio) 25 1 6-25 [facility] [employer] [id number] 16:18:00 Test Item Value Reference Range Interpretation Comments Globulin (test code = Globulin) 2.5 2.7-4.2 [facility] [employer] [id number] 16:18:00 Test Item Value Reference Range Interpretation Comments A/G Ratio (test code = A/G Ratio) 0.7 1 0.7-1.6 [facility] [employer] [id number] 16:18:00 Test Item Value Reference Range Interpretation Comments Magnesium Lvl (test code = Magnesium 1.8 1.8-2.4 Lvl) [facility] [employer] [id number] 16:18:00 Test Item Value Reference Range Interpretation Comments Phosphorus (test code = Phosphorus) 3.1 2.5-4.5 [facility] AND [id number] 16:18:00 Test Item Value Reference Range Interpretation Comments UA Color (test code = Light Yellow UA Color) *NA*(01/01/22 10:18 AM) [facility] AND [id number] 16:18:00 Test Item Value Reference Range Interpretation Comments UA Turbidity (test code = Clear (01/01/22 10:18 UA Turbidity) AM) [facility] [place] AND [id number] 16:18:00 Test Item Value Reference Range Interpretation Comments UA Spec Grav (test code = UA Spec 1.051 1 Grav) [facility] [place] AND [id number] 16:18:00 Test Item Value Reference Range Interpretation Comments UA pH (test code = UA pH) 6.0 1 5.0-8.0 [facility] AND [id number] 16:18:00 Test Item Value Reference Range Interpretation Comments UA Protein (test code = UA Negative mg/dL Protein) [facility] [place] AND [id number] 16:18:00 Test Item Value Reference Range Interpretation Comments UA Glucose (test code = UA Negative mg/dL Glucose) [facility] [place] AND [id number] 16:18:00 Test Item Value Reference Range Interpretation Comments UA Ketones (test code = UA Negative mg/dL Ketones) [facility] [place] AND [id number] 16:18:00 Test Item Value Reference Range Interpretation Comments UA Bili (test code = Negative *NA*(01/01/22 UA Bili) 10:18 AM) [facility] [place] AND [id number] 16:18:00 Test Item Value Reference Range Interpretation Comments UA Blood (test code = Moderate *ABN*(01/01/22 UA Blood) 10:18 AM) [facility] [place] AND [id number] 16:18:00 Test Item Value Reference Range Interpretation Comments UA Urobilinogen (test code = UA no gt 0.1-1.0 Urobilinogen) [facility] [place] AND [id number] 16:18:00 Test Item Value Reference Range Interpretation Comments UA Nitrite (test code Negative (01/01/22 10:18 = UA Nitrite) AM) [facility] [place] AND [id number] 16:18:00 Test Item Value Reference Range Interpretation Comments UA Leuk Est (test Negative (01/01/22 10:18 code = UA Leuk Est) AM) [facility] [place] AND [id number] 16:18:00 Test Item Value Reference Range Interpretation Comments UA WBC (test code = 1 See_Comment [Automa rosendo message] The UA WBC) system which ge nerated this result transmit rosendo reference range : <=5. The reference range was not used to interpr et this result as josi l/abnormal. [facility] AND [id number] 16:18:00 Test Item Value Reference Range Interpretation Comments UA RBC (test code = 2 See_Comment [Automa rosendo message] The UA RBC) system which ge nerated this result transmit rosendo reference range : <=2. The reference range was not used to interpr et this result as josi l/abnormal. [facility] [place] AND [id number] 16:18:00 Test Item Value Reference Range Interpretation Comments UA Mucus (test code = UA Mucus) Few /LPF [facility] [place] AND [id number] 16:18:00 Test Item Value Reference Range Interpretation Comments UA Trans Epi (test code = UA Trans Epi) 1 [facility] [place] AND [id number] 16:18:00 Test Item Value Reference Range Interpretation Comments UA Sq Epi (test code = UA Sq Epi) None Seen [facility]2022-02-21 16:18:00 Test Item Value Reference Range Interpretation Comments Total Protein (test code = Total 4.2 6.4-8.4 Protein) [facility]2022-02-21 16:18:00 Test Item Value Reference Range Interpretation Comments Albumin Lvl (test code = Albumin Lvl) 1.7 3.5-5.0 [facility]2022-02-21 16:18:00 Test Item Value Reference Range Interpretation Comments ALT (test code = ALT) 17 See_Comment [Auto mated message] The system which ge nerated this result transmit rosendo reference range : <=65. The reference range was not used to interpr et this result as josi l/abnormal. [facility] [id number] 16:18:00 Test Item Value Reference Range Interpretation Comments AST (test code = AST) 28 See_Comment [Auto mated message] The system which ge nerated this result transmit rosendo reference range : <=37. The reference range was not used to interpr et this result as josi l/abnormal. [facility] [id number] 16:18:00 Test Item Value Reference Range Interpretation Comments Alk Phos (test code = Alk Phos) 65 39-136 [facility] [id number] 16:18:00 Test Item Value Reference Range Interpretation Comments Bili Total (test code = Bili Total) 0.7 0.2-1.3 [facility] [id number] 16:18:00 Test Item Value Reference Range Interpretation Comments B/C Ratio (test code = B/C Ratio) 25 1 6-25 [place] [id number] 16:18:00 Test Item Value Reference Range Interpretation Comments Globulin (test code = Globulin) 2.5 2.7-4.2 [facility]2022-02-21 16:18:00 Test Item Value Reference Range Interpretation Comments A/G Ratio (test code = A/G Ratio) 0.7 1 0.7-1.6 [facility]2022-02-21 16:18:00 Test Item Value Reference Range Interpretation Comments Magnesium Lvl (test code = Magnesium 1.8 1.8-2.4 Lvl) [facility]2022-02-21 16:18:00 Test Item Value Reference Range Interpretation Comments Phosphorus (test code = Phosphorus) 3.1 2.5-4.5 [facility] [place] AND [id number] 16:18:00 Test Item Value Reference Range Interpretation Comments UA Color (test code = Light Yellow UA Color) *NA*(01/01/22 10:18 AM) [facility] [place] AND [id number] 16:18:00 Test Item Value Reference Range Interpretation Comments UA Turbidity (test code = Clear (01/01/22 10:18 UA Turbidity) AM) [facility] [place] AND [id number] 16:18:00 Test Item Value Reference Range Interpretation Comments UA Spec Grav (test code = UA Spec 1.051 1 Grav) [facility] [place] AND [id number] 16:18:00 Test Item Value Reference Range Interpretation Comments UA pH (test code = UA pH) 6.0 1 5.0-8.0 [facility] [place] AND [id number] 16:18:00 Test Item Value Reference Range Interpretation Comments UA Protein (test code = UA Negative mg/dL Protein) [facility] [place] AND [id number] 16:18:00 Test Item Value Reference Range Interpretation Comments UA Glucose (test code = UA Negative mg/dL Glucose) [facility] [place] AND [id number] 16:18:00 Test Item Value Reference Range Interpretation Comments UA Ketones (test code = UA Negative mg/dL Ketones) [facility] [place] AND [id number] 16:18:00 Test Item Value Reference Range Interpretation Comments UA Bili (test code = Negative *NA*(01/01/22 UA Bili) 10:18 AM) [facility] [place] AND [id number] 16:18:00 Test Item Value Reference Range Interpretation Comments UA Blood (test code = Moderate *ABN*(01/01/22 UA Blood) 10:18 AM) [facility] [place] AND [id number] 16:18:00 Test Item Value Reference Range Interpretation Comments UA Urobilinogen (test code = UA no gt 0.1-1.0 Urobilinogen) [facility] [place] AND [id number] 16:18:00 Test Item Value Reference Range Interpretation Comments UA Nitrite (test code Negative (01/01/22 10:18 = UA Nitrite) AM) [facility] [place] AND [id number] 16:18:00 Test Item Value Reference Range Interpretation Comments UA Leuk Est (test Negative (01/01/22 10:18 code = UA Leuk Est) AM) [facility] [place] AND [id number] 16:18:00 Test Item Value Reference Range Interpretation Comments UA WBC (test code = 1 See_Comment [Automa rosendo message] The UA WBC) system which ge nerated this result transmit rosendo reference range : <=5. The reference range was not used to interpr et this result as josi l/abnormal. [facility] [place] AND [id number] 16:18:00 Test Item Value Reference Range Interpretation Comments UA RBC (test code = 2 See_Comment [Automa rosendo message] The UA RBC) system which ge nerated this result transmit rosendo reference range : <=2. The reference range was not used to interpr et this result as josi l/abnormal. [facility] [place] AND [id number] 16:18:00 Test Item Value Reference Range Interpretation Comments UA Mucus (test code = UA Mucus) Few /LPF [facility] [place] AND [id number] 16:18:00 Test Item Value Reference Range Interpretation Comments UA Trans Epi (test code = UA Trans Epi) 1 [facility] AND [id number] 16:18:00 Test Item Value Reference Range Interpretation Comments UA Sq Epi (test code = UA Sq Epi) None Seen [facility]2022-02-21 16:18:00 Test Item Value Reference Range Interpretation Comments Total Protein (test code = Total 4.2 6.4-8.4 Protein) [facility]2022-02-21 16:18:00 Test Item Value Reference Range Interpretation Comments Albumin Lvl (test code = Albumin Lvl) 1.7 3.5-5.0 [facility]2022-02-21 16:18:00 Test Item Value Reference Range Interpretation Comments ALT (test code = ALT) 17 See_Comment [Auto mated message] The system which ge nerated this result transmit rosendo reference range : <=65. The reference range was not used to interpr et this result as josi l/abnormal. [facility]2022-02-21 16:18:00 Test Item Value Reference Range Interpretation Comments AST (test code = AST) 28 See_Comment [Auto mated message] The system which ge nerated this result transmit rosendo reference range : <=37. The reference range was not used to interpr et this result as josi l/abnormal. [facility]2022-02-21 16:18:00 Test Item Value Reference Range Interpretation Comments Alk Phos (test code = Alk Phos) 65 39-136 [facility]2022-02-21 16:18:00 Test Item Value Reference Range Interpretation Comments Bili Total (test code = Bili Total) 0.7 0.2-1.3 [facility]2022-02-21 16:18:00 Test Item Value Reference Range Interpretation Comments B/C Ratio (test code = B/C Ratio) 25 1 6-25 [place] [id number] 16:18:00 Test Item Value Reference Range Interpretation Comments Globulin (test code = Globulin) 2.5 2.7-4.2 [place] [id number] 16:18:00 Test Item Value Reference Range Interpretation Comments A/G Ratio (test code = A/G Ratio) 0.7 1 0.7-1.6 [facility]2022-02-21 16:18:00 Test Item Value Reference Range Interpretation Comments Magnesium Lvl (test code = Magnesium 1.8 1.8-2.4 Lvl) [facility] [id number] 16:18:00 Test Item Value Reference Range Interpretation Comments Phosphorus (test code = Phosphorus) 3.1 2.5-4.5 [facility] AND [id number] 16:18:00 Test Item Value Reference Range Interpretation Comments UA Color (test code = Light Yellow UA Color) *NA*(01/01/22 10:18 AM) [facility] AND [id number] 16:18:00 Test Item Value Reference Range Interpretation Comments UA Turbidity (test code = Clear (01/01/22 10:18 UA Turbidity) AM) [facility] AND [id number] 16:18:00 Test Item Value Reference Range Interpretation Comments UA Spec Grav (test code = UA Spec 1.051 1 Grav) [facility] AND [id number] 16:18:00 Test Item Value Reference Range Interpretation Comments UA pH (test code = UA pH) 6.0 1 5.0-8.0 [facility] AND [id number] 16:18:00 Test Item Value Reference Range Interpretation Comments UA Protein (test code = UA Negative mg/dL Protein) [facility] AND [id number] 16:18:00 Test Item Value Reference Range Interpretation Comments UA Glucose (test code = UA Negative mg/dL Glucose) [facility] AND [id number] 16:18:00 Test Item Value Reference Range Interpretation Comments UA Ketones (test code = UA Negative mg/dL Ketones) [facility] AND [id number] 16:18:00 Test Item Value Reference Range Interpretation Comments UA Bili (test code = Negative *NA*(01/01/22 UA Bili) 10:18 AM) [facility] AND [id number] 16:18:00 Test Item Value Reference Range Interpretation Comments UA Blood (test code = Moderate *ABN*(01/01/22 UA Blood) 10:18 AM) [facility] AND [id number] 16:18:00 Test Item Value Reference Range Interpretation Comments UA Urobilinogen (test code = UA no gt 0.1-1.0 Urobilinogen) [facility] [id number] 16:18:00 Test Item Value Reference Range Interpretation Comments UA Nitrite (test code Negative (01/01/22 10:18 = UA Nitrite) AM) [facility] [id number] 16:18:00 Test Item Value Reference Range Interpretation Comments UA Leuk Est (test Negative (01/01/22 10:18 code = UA Leuk Est) AM) [facility] [id number] 16:18:00 Test Item Value Reference Range Interpretation Comments UA WBC (test code = 1 See_Comment [Automa rosendo message] The UA WBC) system which ge nerated this result transmit rosendo reference range : <=5. The reference range was not used to interpr et this result as josi l/abnormal. [facility] [id number] 16:18:00 Test Item Value Reference Range Interpretation Comments UA RBC (test code = 2 See_Comment [Automa rosendo message] The UA RBC) system which ge nerated this result transmit rosendo reference range : <=2. The reference range was not used to interpr et this result as josi l/abnormal. [facility] [id number] 16:18:00 Test Item Value Reference Range Interpretation Comments UA Mucus (test code = UA Mucus) Few /LPF [facility] [id number] 16:18:00 Test Item Value Reference Range Interpretation Comments UA Trans Epi (test code = UA Trans Epi) 1 [facility] [id number] 16:18:00 Test Item Value Reference Range Interpretation Comments UA Sq Epi (test code = UA Sq Epi) None Seen [email or web address] [id number] 16:18:00 Test Item Value Reference Range Interpretation Comments Total Protein (test code = Total 4.2 6.4-8.4 Protein) [facility] [id number] 16:18:00 Test Item Value Reference Range Interpretation Comments Albumin Lvl (test code = Albumin Lvl) 1.7 3.5-5.0 [facility] [id number] 16:18:00 Test Item Value Reference Range Interpretation Comments ALT (test code = ALT) 17 See_Comment [Auto mated message] The system which ge nerated this result transmit rosendo reference range : <=65. The reference range was not used to interpr et this result as josi l/abnormal. [facility] [employer] [id number] 16:18:00 Test Item Value Reference Range Interpretation Comments AST (test code = AST) 28 See_Comment [Auto mated message] The system which ge nerated this result transmit rosendo reference range : <=37. The reference range was not used to interpr et this result as josi l/abnormal. [facility] [employer] [id number] 16:18:00 Test Item Value Reference Range Interpretation Comments Alk Phos (test code = Alk Phos) 65 39-136 [email or web address] [id number] 16:18:00 Test Item Value Reference Range Interpretation Comments Bili Total (test code = Bili Total) 0.7 0.2-1.3 [facility]2022-02-21 16:18:00 Test Item Value Reference Range Interpretation Comments B/C Ratio (test code = B/C Ratio) 25 1 6-25 [facility] [id number] 16:18:00 Test Item Value Reference Range Interpretation Comments Globulin (test code = Globulin) 2.5 2.7-4.2 [facility] [id number] 16:18:00 Test Item Value Reference Range Interpretation Comments A/G Ratio (test code = A/G Ratio) 0.7 1 0.7-1.6 [facility] [id number] 16:18:00 Test Item Value Reference Range Interpretation Comments Magnesium Lvl (test code = Magnesium 1.8 1.8-2.4 Lvl) [facility] [id number] 16:18:00 Test Item Value Reference Range Interpretation Comments Phosphorus (test code = Phosphorus) 3.1 2.5-4.5 [facility] [id number] 16:18:00 Test Item Value Reference Range Interpretation Comments UA Color (test code = Light Yellow UA Color) *NA*(01/01/22 10:18 AM) [facility] [id number] 16:18:00 Test Item Value Reference Range Interpretation Comments UA Turbidity (test code = Clear (01/01/22 10:18 UA Turbidity) AM) [facility] [id number] 16:18:00 Test Item Value Reference Range Interpretation Comments UA Spec Grav (test code = UA Spec 1.051 1 Grav) [facility] AND [id number] 16:18:00 Test Item Value Reference Range Interpretation Comments UA pH (test code = UA pH) 6.0 1 5.0-8.0 [facility] AND [id number] 16:18:00 Test Item Value Reference Range Interpretation Comments UA Protein (test code = UA Negative mg/dL Protein) [facility] AND [id number] 16:18:00 Test Item Value Reference Range Interpretation Comments UA Glucose (test code = UA Negative mg/dL Glucose) [facility] AND [id number] 16:18:00 Test Item Value Reference Range Interpretation Comments UA Ketones (test code = UA Negative mg/dL Ketones) [facility] AND [id number] 16:18:00 Test Item Value Reference Range Interpretation Comments UA Bili (test code = Negative *NA*(01/01/22 UA Bili) 10:18 AM) [facility] AND [id number] 16:18:00 Test Item Value Reference Range Interpretation Comments UA Blood (test code = Moderate *ABN*(01/01/22 UA Blood) 10:18 AM) [facility] AND [id number] 16:18:00 Test Item Value Reference Range Interpretation Comments UA Urobilinogen (test code = UA no gt 0.1-1.0 Urobilinogen) [facility] AND [id number] 16:18:00 Test Item Value Reference Range Interpretation Comments UA Nitrite (test code Negative (01/01/22 10:18 = UA Nitrite) AM) [facility] AND [id number] 16:18:00 Test Item Value Reference Range Interpretation Comments UA Leuk Est (test Negative (01/01/22 10:18 code = UA Leuk Est) AM) [facility] AND [id number] 16:18:00 Test Item Value Reference Range Interpretation Comments UA WBC (test code = 1 See_Comment [Automa rosendo message] The UA WBC) system which ge nerated this result transmit rosendo reference range : <=5. The reference range was not used to interpr et this result as josi l/abnormal. [facility] [id number] 16:18:00 Test Item Value Reference Range Interpretation Comments UA RBC (test code = 2 See_Comment [Automa rosendo message] The UA RBC) system which ge nerated this result transmit rosendo reference range : <=2. The reference range was not used to interpr et this result as josi l/abnormal. [facility] [id number] 16:18:00 Test Item Value Reference Range Interpretation Comments UA Mucus (test code = UA Mucus) Few /LPF [facility] AND [id number] 16:18:00 Test Item Value Reference Range Interpretation Comments UA Trans Epi (test code = UA Trans Epi) 1 [facility] AND [id number] 16:18:00 Test Item Value Reference Range Interpretation Comments UA Sq Epi (test code = UA Sq Epi) None Seen [facility] [id number] 16:18:00 Test Item Value Reference Range Interpretation Comments Total Protein (test code = Total 4.2 6.4-8.4 Protein) [facility] [id number] 16:18:00 Test Item Value Reference Range Interpretation Comments Albumin Lvl (test code = Albumin Lvl) 1.7 3.5-5.0 [facility] [id number] 16:18:00 Test Item Value Reference Range Interpretation Comments ALT (test code = ALT) 17 See_Comment [Auto mated message] The system which ge nerated this result transmit rosendo reference range : <=65. The reference range was not used to interpr et this result as josi l/abnormal. [facility] [employer] [id number] 16:18:00 Test Item Value Reference Range Interpretation Comments AST (test code = AST) 28 See_Comment [Auto mated message] The system which ge nerated this result transmit rosendo reference range : <=37. The reference range was not used to interpr et this result as josi l/abnormal. [facility] [id number] 16:18:00 Test Item Value Reference Range Interpretation Comments Alk Phos (test code = Alk Phos) 65 39-136 [email or web address] [id number] 16:18:00 Test Item Value Reference Range Interpretation Comments Bili Total (test code = Bili Total) 0.7 0.2-1.3 [facility] [id number] 16:18:00 Test Item Value Reference Range Interpretation Comments B/C Ratio (test code = B/C Ratio) 25 1 6-25 [facility] [id number] 16:18:00 Test Item Value Reference Range Interpretation Comments Globulin (test code = Globulin) 2.5 2.7-4.2 [facility]2022-02-21 16:18:00 Test Item Value Reference Range Interpretation Comments A/G Ratio (test code = A/G Ratio) 0.7 1 0.7-1.6 [facility]2022-02-21 16:18:00 Test Item Value Reference Range Interpretation Comments Magnesium Lvl (test code = Magnesium 1.8 1.8-2.4 Lvl) [facility]2022-02-21 16:18:00 Test Item Value Reference Range Interpretation Comments Phosphorus (test code = Phosphorus) 3.1 2.5-4.5 [facility] AND [id number] 16:18:00 Test Item Value Reference Range Interpretation Comments UA Color (test code = Light Yellow UA Color) *NA*(01/01/22 10:18 AM) [facility] AND [id number] 16:18:00 Test Item Value Reference Range Interpretation Comments UA Turbidity (test code = Clear (01/01/22 10:18 UA Turbidity) AM) [facility] AND [id number] 16:18:00 Test Item Value Reference Range Interpretation Comments UA Spec Grav (test code = UA Spec 1.051 1 Grav) [facility] AND [id number] 16:18:00 Test Item Value Reference Range Interpretation Comments UA pH (test code = UA pH) 6.0 1 5.0-8.0 [facility] AND [id number] 16:18:00 Test Item Value Reference Range Interpretation Comments UA Protein (test code = UA Negative mg/dL Protein) [facility] AND [id number] 16:18:00 Test Item Value Reference Range Interpretation Comments UA Glucose (test code = UA Negative mg/dL Glucose) [facility] AND [id number] 16:18:00 Test Item Value Reference Range Interpretation Comments UA Ketones (test code = UA Negative mg/dL Ketones) [facility] [id number] 16:18:00 Test Item Value Reference Range Interpretation Comments UA Bili (test code = Negative *NA*(01/01/22 UA Bili) 10:18 AM) [facility] [id number] 16:18:00 Test Item Value Reference Range Interpretation Comments UA Blood (test code = Moderate *ABN*(01/01/22 UA Blood) 10:18 AM) [facility] HermannUR[facility] AND [id number] 16:18:00 Test Item Value Reference Range Interpretation Comments UA Urobilinogen (test code = UA no gt 0.1-1.0 Urobilinogen) [facility] AND [id number] 16:18:00 Test Item Value Reference Range Interpretation Comments UA Nitrite (test code Negative (01/01/22 10:18 = UA Nitrite) AM) [facility] AND [id number] 16:18:00 Test Item Value Reference Range Interpretation Comments UA Leuk Est (test Negative (01/01/22 10:18 code = UA Leuk Est) AM) [facility] [id number] 16:18:00 Test Item Value Reference Range Interpretation Comments UA WBC (test code = 1 See_Comment [Automa rosendo message] The UA WBC) system which ge nerated this result transmit rosendo reference range : <=5. The reference range was not used to interpr et this result as josi l/abnormal. [facility] AND [id number] 16:18:00 Test Item Value Reference Range Interpretation Comments UA RBC (test code = 2 See_Comment [Automa rosendo message] The UA RBC) system which ge nerated this result transmit rosendo reference range : <=2. The reference range was not used to interpr et this result as josi l/abnormal. [facility] [id number] 16:18:00 Test Item Value Reference Range Interpretation Comments UA Mucus (test code = UA Mucus) Few /LPF [facility] [id number] 16:18:00 Test Item Value Reference Range Interpretation Comments UA Trans Epi (test code = UA Trans Epi) 1 [facility] AND [id number] 16:18:00 Test Item Value Reference Range Interpretation Comments UA Sq Epi (test code = UA Sq Epi) None Seen [place] [id number] 06:51:00 Test Item Value Reference Range Interpretation Comments Glucose Lvl (test code = Glucose Lvl) 114 70-99 [place] 542562-02-21 06:51:00 Test Item Value Reference Range Interpretation Comments BUN (test code = BUN) 28 7-22 [place] 542562-02-21 06:51:00 Test Item Value Reference Range Interpretation Comments Creatinine Lvl (test code = Creatinine 1.08 0.50-1.40 Lvl) [place] 542562-02-21 06:51:00 Test Item Value Reference Range Interpretation Comments Sodium Lvl (test code = Sodium Lvl) 141 135-145 [place] 542562-02-21 06:51:00 Test Item Value Reference Range Interpretation Comments Potassium Lvl (test code = Potassium 3.7 3.5-5.1 Lvl) [facility]2022-02-21 06:51:00 Test Item Value Reference Range Interpretation Comments Chloride Lvl (test code = Chloride Lvl) 110 95-109 [facility]2022-02-21 06:51:00 Test Item Value Reference Range Interpretation Comments CO2 (test code = CO2) 28 24-32 [place] 542562-02-21 06:51:00 Test Item Value Reference Range Interpretation Comments Calcium Lvl (test code = Calcium Lvl) 8.1 8.5-10.5 [facility]2022-02-21 06:51:00 Test Item Value Reference Range Interpretation Comments AGAP (test code = AGAP) 6.7 10.0-20.0 [place] 542562-02-21 06:51:00 Test Item Value Reference Range Interpretation Comments eGFR (test code = eGFR) 48 [place] 542562-02-21 06:51:00 Test Item Value Reference Range Interpretation Comments Magnesium Lvl (test code = Magnesium 2.4 1.8-2.4 Lvl) [facility]2022-02-21 06:51:00 Test Item Value Reference Range Interpretation Comments Phosphorus (test code = Phosphorus) 3.5 2.5-4.5 [facility] [id number] 06:51:00 Test Item Value Reference Range Interpretation Comments WBC (test code = WBC) 10.7 3.7-10.4 [facility]FIGVXNJOBN1303[facility] 06:51:00 Test Item Value Reference Range Interpretation Comments RBC (test code = RBC) 2.99 4.20-5.40 [facility] C[id number] 06:51:00 Test Item Value Reference Range Interpretation Comments Hgb (test code = Hgb) 9.3 12.0-16.0 [place] 519362-02-21 06:51:00 Test Item Value Reference Range Interpretation Comments Hct (test code = Hct) 26.2 36.0-48.0 [place] 519362-02-21 06:51:00 Test Item Value Reference Range Interpretation Comments MCV (test code = MCV) 87.6 80.0-98.0 [place] 519362-02-21 06:51:00 Test Item Value Reference Range Interpretation Comments MCH (test code = MCH) 30.9 pg 27.0-31.0 [facility]EpfpvjsQSOMFBVLJA2926-09-29 06:51:00 Test Item Value Reference Range Interpretation Comments MCHC (test code = MCHC) 35.3 32.0-36.0 [facility] C[id number] 06:51:00 Test Item Value Reference Range Interpretation Comments RDW (test code = RDW) 15.9 11.5-14.5 [facility] [id number] 06:51:00 Test Item Value Reference Range Interpretation Comments Platelet (test code = Platelet) 81 133-450 [facility] CenterMnmycbaFTNPYFVHAX6676-59-99 06:51:00 Test Item Value Reference Range Interpretation Comments MPV (test code = MPV) 7.6 7.4-10.4 [place] 519362-02-21 06:51:00 Test Item Value Reference Range Interpretation Comments Segs (test code = Segs) 73.7 45.0-75.0 [place] 519362-02-21 06:51:00 Test Item Value Reference Range Interpretation Comments Lymphocytes (test code = Lymphocytes) 10.9 20.0-40.0 [place] 519362-02-21 06:51:00 Test Item Value Reference Range Interpretation Comments Monocytes (test code = Monocytes) 14.4 2.0-12.0 [place] 519362-02-21 06:51:00 Test Item Value Reference Range Interpretation Comments Eosinophils (test code = 0.6 See_Comment [A utomated message] The Eosinophils) system which ge nerated this result tra nsmitted reference range : <=4.0. The reference r patria was not used to int erpret this result as normal/abnormal . [place] 519362-02-21 06:51:00 Test Item Value Reference Range Interpretation Comments Basophils (test code = 0.4 See_Comment [Aut omated message] The Basophils) system which ge nerated this result tra nsmitted reference range : <=1.0. The reference r patria was not used to int erpret this result as normal/abnormal . [place] 519362-02-21 06:51:00 Test Item Value Reference Range Interpretation Comments Neutrophils # (test code = Neutrophils 7.9 1.5-8.1 #) [place] 519362-02-21 06:51:00 Test Item Value Reference Range Interpretation Comments Lymphocytes # (test code = Lymphocytes 1.2 1.0-5.5 #) [place] 519362-02-21 06:51:00 Test Item Value Reference Range Interpretation Comments Monocytes # (test code 1.5 See_Comment [Aut omated message] The = Monocytes #) system which generated this result tra nsmitted reference range : <=0.8. The reference r patria was not used to int erpret this result as normal/abnormal . [place] 519362-02-21 06:51:00 Test Item Value Reference Range Interpretation Comments Eosinophils # (test code 0.1 See_Comment [A utomated message] The = Eosinophils #) system whic h generated this result tra nsmitted reference range : <=0.5. The reference r patria was not used to int erpret this result as normal/abnormal . [facility] [id number] 06:51:00 Test Item Value Reference Range Interpretation Comments Glucose Lvl (test code = Glucose Lvl) 114 70-99 [facility] [id number] 06:51:00 Test Item Value Reference Range Interpretation Comments BUN (test code = BUN) 28 7-22 [place] 542562-02-21 06:51:00 Test Item Value Reference Range Interpretation Comments Creatinine Lvl (test code = Creatinine 1.08 0.50-1.40 Lvl) [place] 542562-02-21 06:51:00 Test Item Value Reference Range Interpretation Comments Sodium Lvl (test code = Sodium Lvl) 141 135-145 [place] 542562-02-21 06:51:00 Test Item Value Reference Range Interpretation Comments Potassium Lvl (test code = Potassium 3.7 3.5-5.1 Lvl) [place] 542562-02-21 06:51:00 Test Item Value Reference Range Interpretation Comments Chloride Lvl (test code = Chloride Lvl) 110 95-109 [place] 542562-02-21 06:51:00 Test Item Value Reference Range Interpretation Comments CO2 (test code = CO2) 28 24-32 [place] 542562-02-21 06:51:00 Test Item Value Reference Range Interpretation Comments Calcium Lvl (test code = Calcium Lvl) 8.1 8.5-10.5 [place] 542562-02-21 06:51:00 Test Item Value Reference Range Interpretation Comments AGAP (test code = AGAP) 6.7 10.0-20.0 [place] 542562-02-21 06:51:00 Test Item Value Reference Range Interpretation Comments eGFR (test code = eGFR) 48 [place] 542562-02-21 06:51:00 Test Item Value Reference Range Interpretation Comments Magnesium Lvl (test code = Magnesium 2.4 1.8-2.4 Lvl) [place] 542562-02-21 06:51:00 Test Item Value Reference Range Interpretation Comments Phosphorus (test code = Phosphorus) 3.5 2.5-4.5 [place] 519362-02-21 06:51:00 Test Item Value Reference Range Interpretation Comments WBC (test code = WBC) 10.7 3.7-10.4 [place] 519362-02-21 06:51:00 Test Item Value Reference Range Interpretation Comments RBC (test code = RBC) 2.99 4.20-5.40 [place] 519362-02-21 06:51:00 Test Item Value Reference Range Interpretation Comments Hgb (test code = Hgb) 9.3 12.0-16.0 [place] 519362-02-21 06:51:00 Test Item Value Reference Range Interpretation Comments Hct (test code = Hct) 26.2 36.0-48.0 [place] 519362-02-21 06:51:00 Test Item Value Reference Range Interpretation Comments MCV (test code = MCV) 87.6 80.0-98.0 [place] 519362-02-21 06:51:00 Test Item Value Reference Range Interpretation Comments MCH (test code = MCH) 30.9 pg 27.0-31.0 [place] 519362-02-21 06:51:00 Test Item Value Reference Range Interpretation Comments MCHC (test code = MCHC) 35.3 32.0-36.0 [place] 519362-02-21 06:51:00 Test Item Value Reference Range Interpretation Comments RDW (test code = RDW) 15.9 11.5-14.5 [place] 519362-02-21 06:51:00 Test Item Value Reference Range Interpretation Comments Platelet (test code = Platelet) 81 133-450 [place] 519362-02-21 06:51:00 Test Item Value Reference Range Interpretation Comments MPV (test code = MPV) 7.6 7.4-10.4 [place] 519362-02-21 06:51:00 Test Item Value Reference Range Interpretation Comments Segs (test code = Segs) 73.7 45.0-75.0 [place] 519362-02-21 06:51:00 Test Item Value Reference Range Interpretation Comments Lymphocytes (test code = Lymphocytes) 10.9 20.0-40.0 [place] 519362-02-21 06:51:00 Test Item Value Reference Range Interpretation Comments Monocytes (test code = Monocytes) 14.4 2.0-12.0 [place] 519362-02-21 06:51:00 Test Item Value Reference Range Interpretation Comments Eosinophils (test code = 0.6 See_Comment [A utomated message] The Eosinophils) system which ge nerated this result tra nsmitted reference range : <=4.0. The reference r patria was not used to int erpret this result as normal/abnormal . [place] 519362-02-21 06:51:00 Test Item Value Reference Range Interpretation Comments Basophils (test code = 0.4 See_Comment [Aut omated message] The Basophils) system which ge nerated this result tra nsmitted reference range : <=1.0. The reference r patria was not used to int erpret this result as normal/abnormal . [place] 519362-02-21 06:51:00 Test Item Value Reference Range Interpretation Comments Neutrophils # (test code = Neutrophils 7.9 1.5-8.1 #) [place] 519362-02-21 06:51:00 Test Item Value Reference Range Interpretation Comments Lymphocytes # (test code = Lymphocytes 1.2 1.0-5.5 #) [place] 519362-02-21 06:51:00 Test Item Value Reference Range Interpretation Comments Monocytes # (test code 1.5 See_Comment [Aut omated message] The = Monocytes #) system which generated this result tra nsmitted reference range : <=0.8. The reference r patria was not used to int erpret this result as normal/abnormal . [place] 519362-02-21 06:51:00 Test Item Value Reference Range Interpretation Comments Eosinophils # (test code 0.1 See_Comment [A utomated message] The = Eosinophils #) system whic h generated this result tra nsmitted reference range : <=0.5. The reference r patria was not used to int erpret this result as normal/abnormal . [facility]2022-02-21 06:51:00 Test Item Value Reference Range Interpretation Comments Glucose Lvl (test code = Glucose Lvl) 114 70-99 [place] 542562-02-21 06:51:00 Test Item Value Reference Range Interpretation Comments BUN (test code = BUN) 28 7-22 [place] 542562-02-21 06:51:00 Test Item Value Reference Range Interpretation Comments Creatinine Lvl (test code = Creatinine 1.08 0.50-1.40 Lvl) [place] 542562-02-21 06:51:00 Test Item Value Reference Range Interpretation Comments Sodium Lvl (test code = Sodium Lvl) 141 135-145 [place] 542562-02-21 06:51:00 Test Item Value Reference Range Interpretation Comments Potassium Lvl (test code = Potassium 3.7 3.5-5.1 Lvl) [place] 542562-02-21 06:51:00 Test Item Value Reference Range Interpretation Comments Chloride Lvl (test code = Chloride Lvl) 110 95-109 [place] 542562-02-21 06:51:00 Test Item Value Reference Range Interpretation Comments CO2 (test code = CO2) 28 24-32 [place] 542562-02-21 06:51:00 Test Item Value Reference Range Interpretation Comments Calcium Lvl (test code = Calcium Lvl) 8.1 8.5-10.5 [place] 542562-02-21 06:51:00 Test Item Value Reference Range Interpretation Comments AGAP (test code = AGAP) 6.7 10.0-20.0 [place] 542562-02-21 06:51:00 Test Item Value Reference Range Interpretation Comments eGFR (test code = eGFR) 48 [place] 542562-02-21 06:51:00 Test Item Value Reference Range Interpretation Comments Magnesium Lvl (test code = Magnesium 2.4 1.8-2.4 Lvl) [place] 542562-02-21 06:51:00 Test Item Value Reference Range Interpretation Comments Phosphorus (test code = Phosphorus) 3.5 2.5-4.5 [place] 519362-02-21 06:51:00 Test Item Value Reference Range Interpretation Comments WBC (test code = WBC) 10.7 3.7-10.4 [place] 519362-02-21 06:51:00 Test Item Value Reference Range Interpretation Comments RBC (test code = RBC) 2.99 4.20-5.40 [place] [address]-02-21 06:51:00 Test Item Value Reference Range Interpretation Comments Hgb (test code = Hgb) 9.3 12.0-16.0 [place] [address]-02-21 06:51:00 Test Item Value Reference Range Interpretation Comments Hct (test code = Hct) 26.2 36.0-48.0 [place] 519362-02-21 06:51:00 Test Item Value Reference Range Interpretation Comments MCV (test code = MCV) 87.6 80.0-98.0 [facility]PRVDALKYB6394[facility]62-63 06:51:00 Test Item Value Reference Range Interpretation Comments MCH (test code = MCH) 30.9 pg 27.0-31.0 [facility]YamiwitJDKRVEOGVY9170-26-51 06:51:00 Test Item Value Reference Range Interpretation Comments MCHC (test code = MCHC) 35.3 32.0-36.0 [facility]KcbopnkUIHTACAUVK0774-19-34 06:51:00 Test Item Value Reference Range Interpretation Comments RDW (test code = RDW) 15.9 11.5-14.5 [place] 519362-02-21 06:51:00 Test Item Value Reference Range Interpretation Comments Platelet (test code = Platelet) 81 133-450 [facility] CenterVpmeearGHNSVEMWVD2723-87-74 06:51:00 Test Item Value Reference Range Interpretation Comments MPV (test code = MPV) 7.6 7.4-10.4 [facility] CenterWtorkcuFIDKQVNQOZ1355-91-05 06:51:00 Test Item Value Reference Range Interpretation Comments Segs (test code = Segs) 73.7 45.0-75.0 [facility] CenterFrjenjyUPGYWAXHRY0926-04-32 06:51:00 Test Item Value Reference Range Interpretation Comments Lymphocytes (test code = Lymphocytes) 10.9 20.0-40.0 [facility] CenterUmhxkdaJIGKSONNTE1773-12-42 06:51:00 Test Item Value Reference Range Interpretation Comments Monocytes (test code = Monocytes) 14.4 2.0-12.0 [facility] CenterKkcxgnbUKPMWBLSLE4256-96-95 06:51:00 Test Item Value Reference Range Interpretation Comments Eosinophils (test code = 0.6 See_Comment [A utomated message] The Eosinophils) system which ge nerated this result tra nsmitted reference range : <=4.0. The reference r patria was not used to int erpret this result as normal/abnormal . [facility] CenterTlycncgZEWZSVCAPK0099-31-61 06:51:00 Test Item Value Reference Range Interpretation Comments Basophils (test code = 0.4 See_Comment [Aut omated message] The Basophils) system which ge nerated this result tra nsmitted reference range : <=1.0. The reference r patria was not used to int erpret this result as normal/abnormal . [place] [address]-02-21 06:51:00 Test Item Value Reference Range Interpretation Comments Neutrophils # (test code = Neutrophils 7.9 1.5-8.1 #) [place] 519362-02-21 06:51:00 Test Item Value Reference Range Interpretation Comments Lymphocytes # (test code = Lymphocytes 1.2 1.0-5.5 #) [place] 519362-02-21 06:51:00 Test Item Value Reference Range Interpretation Comments Monocytes # (test code 1.5 See_Comment [Aut omated message] The = Monocytes #) system which generated this result tra nsmitted reference range : <=0.8. The reference r patria was not used to int erpret this result as normal/abnormal . [place] 519362-02-21 06:51:00 Test Item Value Reference Range Interpretation Comments Eosinophils # (test code 0.1 See_Comment [A utomated message] The = Eosinophils #) system whic h generated this result tra nsmitted reference range : <=0.5. The reference r patria was not used to int erpret this result as normal/abnormal . [place] 542562-02-21 06:51:00 Test Item Value Reference Range Interpretation Comments Glucose Lvl (test code = Glucose Lvl) 114 70-99 [place] 542562-02-21 06:51:00 Test Item Value Reference Range Interpretation Comments BUN (test code = BUN) 28 7-22 [place] 542562-02-21 06:51:00 Test Item Value Reference Range Interpretation Comments Creatinine Lvl (test code = Creatinine 1.08 0.50-1.40 Lvl) [place] 542562-02-21 06:51:00 Test Item Value Reference Range Interpretation Comments Sodium Lvl (test code = Sodium Lvl) 141 135-145 [place] 542562-02-21 06:51:00 Test Item Value Reference Range Interpretation Comments Potassium Lvl (test code = Potassium 3.7 3.5-5.1 Lvl) [place] 542562-02-21 06:51:00 Test Item Value Reference Range Interpretation Comments Chloride Lvl (test code = Chloride Lvl) 110 95-109 [place] 542562-02-21 06:51:00 Test Item Value Reference Range Interpretation Comments CO2 (test code = CO2) 28 24-32 [place] 542562-02-21 06:51:00 Test Item Value Reference Range Interpretation Comments Calcium Lvl (test code = Calcium Lvl) 8.1 8.5-10.5 [place] 542562-02-21 06:51:00 Test Item Value Reference Range Interpretation Comments AGAP (test code = AGAP) 6.7 10.0-20.0 [place] 542562-02-21 06:51:00 Test Item Value Reference Range Interpretation Comments eGFR (test code = eGFR) 48 [place] 542562-02-21 06:51:00 Test Item Value Reference Range Interpretation Comments Magnesium Lvl (test code = Magnesium 2.4 1.8-2.4 Lvl) [place] 542562-02-21 06:51:00 Test Item Value Reference Range Interpretation Comments Phosphorus (test code = Phosphorus) 3.5 2.5-4.5 [place] 519362-02-21 06:51:00 Test Item Value Reference Range Interpretation Comments WBC (test code = WBC) 10.7 3.7-10.4 [place] 519362-02-21 06:51:00 Test Item Value Reference Range Interpretation Comments RBC (test code = RBC) 2.99 4.20-5.40 [place] 519362-02-21 06:51:00 Test Item Value Reference Range Interpretation Comments Hgb (test code = Hgb) 9.3 12.0-16.0 [place] 519362-02-21 06:51:00 Test Item Value Reference Range Interpretation Comments Hct (test code = Hct) 26.2 36.0-48.0 [place] 519362-02-21 06:51:00 Test Item Value Reference Range Interpretation Comments MCV (test code = MCV) 87.6 80.0-98.0 [place] [address]-02-21 06:51:00 Test Item Value Reference Range Interpretation Comments MCH (test code = MCH) 30.9 pg 27.0-31.0 [place] 519362-02-21 06:51:00 Test Item Value Reference Range Interpretation Comments MCHC (test code = MCHC) 35.3 32.0-36.0 [place] [address]-02-21 06:51:00 Test Item Value Reference Range Interpretation Comments RDW (test code = RDW) 15.9 11.5-14.5 [place] [address]-02-21 06:51:00 Test Item Value Reference Range Interpretation Comments Platelet (test code = Platelet) 81 133-450 [place] 519362-02-21 06:51:00 Test Item Value Reference Range Interpretation Comments MPV (test code = MPV) 7.6 7.4-10.4 [place] 519362-02-21 06:51:00 Test Item Value Reference Range Interpretation Comments Segs (test code = Segs) 73.7 45.0-75.0 [place] [address]-02-21 06:51:00 Test Item Value Reference Range Interpretation Comments Lymphocytes (test code = Lymphocytes) 10.9 20.0-40.0 [place] 519362-02-21 06:51:00 Test Item Value Reference Range Interpretation Comments Monocytes (test code = Monocytes) 14.4 2.0-12.0 [place] 519362-02-21 06:51:00 Test Item Value Reference Range Interpretation Comments Eosinophils (test code = 0.6 See_Comment [A utomated message] The Eosinophils) system which ge nerated this result tra nsmitted reference range : <=4.0. The reference r patria was not used to int erpret this result as normal/abnormal . [place] 519362-02-21 06:51:00 Test Item Value Reference Range Interpretation Comments Basophils (test code = 0.4 See_Comment [Aut omated message] The Basophils) system which ge nerated this result tra nsmitted reference range : <=1.0. The reference r patria was not used to int erpret this result as normal/abnormal . [place] 519362-02-21 06:51:00 Test Item Value Reference Range Interpretation Comments Neutrophils # (test code = Neutrophils 7.9 1.5-8.1 #) [place] 519362-02-21 06:51:00 Test Item Value Reference Range Interpretation Comments Lymphocytes # (test code = Lymphocytes 1.2 1.0-5.5 #) [place] 519362-02-21 06:51:00 Test Item Value Reference Range Interpretation Comments Monocytes # (test code 1.5 See_Comment [Aut omated message] The = Monocytes #) system which generated this result tra nsmitted reference range : <=0.8. The reference r patria was not used to int erpret this result as normal/abnormal . [facility]NyyfogwGPNVBSVVBN4538-40-83 06:51:00 Test Item Value Reference Range Interpretation Comments Eosinophils # (test code 0.1 See_Comment [A utomated message] The = Eosinophils #) system whic h generated this result tra nsmitted reference range : <=0.5. The reference r patria was not used to int erpret this result as normal/abnormal . [place] 542562-02-21 06:51:00 Test Item Value Reference Range Interpretation Comments Glucose Lvl (test code = Glucose Lvl) 114 70-99 [place] 542562-02-21 06:51:00 Test Item Value Reference Range Interpretation Comments BUN (test code = BUN) 28 7-22 [place] 542562-02-21 06:51:00 Test Item Value Reference Range Interpretation Comments Creatinine Lvl (test code = Creatinine 1.08 0.50-1.40 Lvl) [place] 542562-02-21 06:51:00 Test Item Value Reference Range Interpretation Comments Sodium Lvl (test code = Sodium Lvl) 141 135-145 [place] 542562-02-21 06:51:00 Test Item Value Reference Range Interpretation Comments Potassium Lvl (test code = Potassium 3.7 3.5-5.1 Lvl) [place] 542562-02-21 06:51:00 Test Item Value Reference Range Interpretation Comments Chloride Lvl (test code = Chloride Lvl) 110 95-109 [place] 542562-02-21 06:51:00 Test Item Value Reference Range Interpretation Comments CO2 (test code = CO2) 28 24-32 [place] 542562-02-21 06:51:00 Test Item Value Reference Range Interpretation Comments Calcium Lvl (test code = Calcium Lvl) 8.1 8.5-10.5 [place] 542562-02-21 06:51:00 Test Item Value Reference Range Interpretation Comments AGAP (test code = AGAP) 6.7 10.0-20.0 [facility]2022-02-21 06:51:00 Test Item Value Reference Range Interpretation Comments eGFR (test code = eGFR) 48 [facility] FFBWA0694-03-86 06:51:00 Test Item Value Reference Range Interpretation Comments Magnesium Lvl (test code = Magnesium 2.4 1.8-2.4 Lvl) [facility]2022-02-21 06:51:00 Test Item Value Reference Range Interpretation Comments Phosphorus (test code = Phosphorus) 3.5 2.5-4.5 [place] 519362-02-21 06:51:00 Test Item Value Reference Range Interpretation Comments WBC (test code = WBC) 10.7 3.7-10.4 [facility] CenterCyxpsxsGVETDNBFWM0568-13-57 06:51:00 Test Item Value Reference Range Interpretation Comments RBC (test code = RBC) 2.99 4.20-5.40 [facility] CenterLnwrcbpTCLNEKHPVK4597-83-36 06:51:00 Test Item Value Reference Range Interpretation Comments Hgb (test code = Hgb) 9.3 12.0-16.0 [place] 519362-02-21 06:51:00 Test Item Value Reference Range Interpretation Comments Hct (test code = Hct) 26.2 36.0-48.0 [facility] CenterVephlpgFWKIZBSNZG2436-18-75 06:51:00 Test Item Value Reference Range Interpretation Comments MCV (test code = MCV) 87.6 80.0-98.0 [place] 519362-02-21 06:51:00 Test Item Value Reference Range Interpretation Comments MCH (test code = MCH) 30.9 pg 27.0-31.0 [place] 519362-02-21 06:51:00 Test Item Value Reference Range Interpretation Comments MCHC (test code = MCHC) 35.3 32.0-36.0 [place] 519362-02-21 06:51:00 Test Item Value Reference Range Interpretation Comments RDW (test code = RDW) 15.9 11.5-14.5 [place] 519362-02-21 06:51:00 Test Item Value Reference Range Interpretation Comments Platelet (test code = Platelet) 81 133-450 [facility] CenterSmulypyRIKJCYRCRF6900-83-27 06:51:00 Test Item Value Reference Range Interpretation Comments MPV (test code = MPV) 7.6 7.4-10.4 [facility] CenterRoimcqdNKSXZYIABB0243-86-76 06:51:00 Test Item Value Reference Range Interpretation Comments Segs (test code = Segs) 73.7 45.0-75.0 [facility] CenterEfudvdlXDGMWPYEBZ7481-36-49 06:51:00 Test Item Value Reference Range Interpretation Comments Lymphocytes (test code = Lymphocytes) 10.9 20.0-40.0 [place] 519362-02-21 06:51:00 Test Item Value Reference Range Interpretation Comments Monocytes (test code = Monocytes) 14.4 2.0-12.0 [place] 519362-02-21 06:51:00 Test Item Value Reference Range Interpretation Comments Eosinophils (test code = 0.6 See_Comment [A utomated message] The Eosinophils) system which ge nerated this result tra nsmitted reference range : <=4.0. The reference r patria was not used to int erpret this result as normal/abnormal . [facility] CenterOcabhuaRJWPOFYLBY5398-98-72 06:51:00 Test Item Value Reference Range Interpretation Comments Basophils (test code = 0.4 See_Comment [Aut omated message] The Basophils) system which ge nerated this result tra nsmitted reference range : <=1.0. The reference r patria was not used to int erpret this result as normal/abnormal . [facility] CenterKlpskfcMCCDFRCJQV9143-23-47 06:51:00 Test Item Value Reference Range Interpretation Comments Neutrophils # (test code = Neutrophils 7.9 1.5-8.1 #) [facility] CenterSfavgfbGSEOTDKINN4115-36-29 06:51:00 Test Item Value Reference Range Interpretation Comments Lymphocytes # (test code = Lymphocytes 1.2 1.0-5.5 #) [place] 519362-02-21 06:51:00 Test Item Value Reference Range Interpretation Comments Monocytes # (test code 1.5 See_Comment [Aut omated message] The = Monocytes #) system which generated this result tra nsmitted reference range : <=0.8. The reference r patria was not used to int erpret this result as normal/abnormal . [facility] CenterLqkxgvxXEWAQOOMYY4531-26-90 06:51:00 Test Item Value Reference Range Interpretation Comments Eosinophils # (test code 0.1 See_Comment [A utomated message] The = Eosinophils #) system whic h generated this result tra nsmitted reference range : <=0.5. The reference r patria was not used to int erpret this result as normal/abnormal . [facility]2022-02-21 06:51:00 Test Item Value Reference Range Interpretation Comments Glucose Lvl (test code = Glucose Lvl) 114 70-99 [place] 542562-02-21 06:51:00 Test Item Value Reference Range Interpretation Comments BUN (test code = BUN) 28 7-22 [place] 542562-02-21 06:51:00 Test Item Value Reference Range Interpretation Comments Creatinine Lvl (test code = Creatinine 1.08 0.50-1.40 Lvl) [facility]2022-02-21 06:51:00 Test Item Value Reference Range Interpretation Comments Sodium Lvl (test code = Sodium Lvl) 141 135-145 [place] 542562-02-21 06:51:00 Test Item Value Reference Range Interpretation Comments Potassium Lvl (test code = Potassium 3.7 3.5-5.1 Lvl) [place] 542562-02-21 06:51:00 Test Item Value Reference Range Interpretation Comments Chloride Lvl (test code = Chloride Lvl) 110 95-109 [facility]2022-02-21 06:51:00 Test Item Value Reference Range Interpretation Comments CO2 (test code = CO2) 28 24-32 [place] 542562-02-21 06:51:00 Test Item Value Reference Range Interpretation Comments Calcium Lvl (test code = Calcium Lvl) 8.1 8.5-10.5 [place] 542562-02-21 06:51:00 Test Item Value Reference Range Interpretation Comments AGAP (test code = AGAP) 6.7 10.0-20.0 [place] 542562-02-21 06:51:00 Test Item Value Reference Range Interpretation Comments eGFR (test code = eGFR) 48 [place] 542562-02-21 06:51:00 Test Item Value Reference Range Interpretation Comments Magnesium Lvl (test code = Magnesium 2.4 1.8-2.4 Lvl) [place] 542562-02-21 06:51:00 Test Item Value Reference Range Interpretation Comments Phosphorus (test code = Phosphorus) 3.5 2.5-4.5 [facility] CenterPwdqyguMHHXDGSCBE0911-33-80 06:51:00 Test Item Value Reference Range Interpretation Comments WBC (test code = WBC) 10.7 3.7-10.4 [facility] CenterGiwirokLFPJVAYRAS9570-00-51 06:51:00 Test Item Value Reference Range Interpretation Comments RBC (test code = RBC) 2.99 4.20-5.40 [facility] CenterMzqszklXJFFMHJYHL0514-95-50 06:51:00 Test Item Value Reference Range Interpretation Comments Hgb (test code = Hgb) 9.3 12.0-16.0 [place] 519362-02-21 06:51:00 Test Item Value Reference Range Interpretation Comments Hct (test code = Hct) 26.2 36.0-48.0 [facility] CenterRhkfqikVMBURTKHQP1801-22-58 06:51:00 Test Item Value Reference Range Interpretation Comments MCV (test code = MCV) 87.6 80.0-98.0 [facility] CenterVhavcpaYQAKCZJDUZ1998-08-08 06:51:00 Test Item Value Reference Range Interpretation Comments MCH (test code = MCH) 30.9 pg 27.0-31.0 [facility] CenterAgsbjyzDUXJQZKBYZ6298-85-59 06:51:00 Test Item Value Reference Range Interpretation Comments MCHC (test code = MCHC) 35.3 32.0-36.0 [facility] CenterXxhzztaJMQWZEPLZR0821-60-53 06:51:00 Test Item Value Reference Range Interpretation Comments RDW (test code = RDW) 15.9 11.5-14.5 [facility] CenterEuzyfzuMDVFWEQMIQ4177-71-57 06:51:00 Test Item Value Reference Range Interpretation Comments Platelet (test code = Platelet) 81 133-450 [facility] CenterYalwxgrHNUBCUFATY6583-95-66 06:51:00 Test Item Value Reference Range Interpretation Comments MPV (test code = MPV) 7.6 7.4-10.4 [facility] CenterBbhsffyGYGNASUJTJ2106-19-55 06:51:00 Test Item Value Reference Range Interpretation Comments Segs (test code = Segs) 73.7 45.0-75.0 [facility] CenterBxfofsdRGJBICVFGR2691-50-76 06:51:00 Test Item Value Reference Range Interpretation Comments Lymphocytes (test code = Lymphocytes) 10.9 20.0-40.0 [place] 519362-02-21 06:51:00 Test Item Value Reference Range Interpretation Comments Monocytes (test code = Monocytes) 14.4 2.0-12.0 [place] 519362-02-21 06:51:00 Test Item Value Reference Range Interpretation Comments Eosinophils (test code = 0.6 See_Comment [A utomated message] The Eosinophils) system which ge nerated this result tra nsmitted reference range : <=4.0. The reference r patria was not used to int erpret this result as normal/abnormal . [place] 519362-02-21 06:51:00 Test Item Value Reference Range Interpretation Comments Basophils (test code = 0.4 See_Comment [Aut omated message] The Basophils) system which ge nerated this result tra nsmitted reference range : <=1.0. The reference r patria was not used to int erpret this result as normal/abnormal . [place] 519362-02-21 06:51:00 Test Item Value Reference Range Interpretation Comments Neutrophils # (test code = Neutrophils 7.9 1.5-8.1 #) [place] 519362-02-21 06:51:00 Test Item Value Reference Range Interpretation Comments Lymphocytes # (test code = Lymphocytes 1.2 1.0-5.5 #) [place] 519362-02-21 06:51:00 Test Item Value Reference Range Interpretation Comments Monocytes # (test code 1.5 See_Comment [Aut omated message] The = Monocytes #) system which generated this result tra nsmitted reference range : <=0.8. The reference r patria was not used to int erpret this result as normal/abnormal . [place]362-02-21 06:51:00 Test Item Value Reference Range Interpretation Comments Eosinophils # (test code 0.1 See_Comment [A utomated message] The = Eosinophils #) system whic h generated this result tra nsmitted reference range : <=0.5. The reference r patria was not used to int erpret this result as normal/abnormal . [facility]2022-02-21 06:51:00 Test Item Value Reference Range Interpretation Comments Glucose Lvl (test code = Glucose Lvl) 114 70-99 [place] 542562-02-21 06:51:00 Test Item Value Reference Range Interpretation Comments BUN (test code = BUN) 28 7-22 [place] 542562-02-21 06:51:00 Test Item Value Reference Range Interpretation Comments Creatinine Lvl (test code = Creatinine 1.08 0.50-1.40 Lvl) [place] 542562-02-21 06:51:00 Test Item Value Reference Range Interpretation Comments Sodium Lvl (test code = Sodium Lvl) 141 135-145 [place] 542562-02-21 06:51:00 Test Item Value Reference Range Interpretation Comments Potassium Lvl (test code = Potassium 3.7 3.5-5.1 Lvl) [place] 542562-02-21 06:51:00 Test Item Value Reference Range Interpretation Comments Chloride Lvl (test code = Chloride Lvl) 110 95-109 [place] 542562-02-21 06:51:00 Test Item Value Reference Range Interpretation Comments CO2 (test code = CO2) 28 24-32 [place] [id number] 06:51:00 Test Item Value Reference Range Interpretation Comments Calcium Lvl (test code = Calcium Lvl) 8.1 8.5-10.5 [place] 542562-02-21 06:51:00 Test Item Value Reference Range Interpretation Comments AGAP (test code = AGAP) 6.7 10.0-20.0 [place] 542562-02-21 06:51:00 Test Item Value Reference Range Interpretation Comments eGFR (test code = eGFR) 48 [place] 542562-02-21 06:51:00 Test Item Value Reference Range Interpretation Comments Magnesium Lvl (test code = Magnesium 2.4 1.8-2.4 Lvl) [place] 542562-02-21 06:51:00 Test Item Value Reference Range Interpretation Comments Phosphorus (test code = Phosphorus) 3.5 2.5-4.5 [place] 519362-02-21 06:51:00 Test Item Value Reference Range Interpretation Comments WBC (test code = WBC) 10.7 3.7-10.4 [place] 519362-02-21 06:51:00 Test Item Value Reference Range Interpretation Comments RBC (test code = RBC) 2.99 4.20-5.40 [place] 519362-02-21 06:51:00 Test Item Value Reference Range Interpretation Comments Hgb (test code = Hgb) 9.3 12.0-16.0 [place] 519362-02-21 06:51:00 Test Item Value Reference Range Interpretation Comments Hct (test code = Hct) 26.2 36.0-48.0 [place] 519362-02-21 06:51:00 Test Item Value Reference Range Interpretation Comments MCV (test code = MCV) 87.6 80.0-98.0 [place] 519362-02-21 06:51:00 Test Item Value Reference Range Interpretation Comments MCH (test code = MCH) 30.9 pg 27.0-31.0 [place] 519362-02-21 06:51:00 Test Item Value Reference Range Interpretation Comments MCHC (test code = MCHC) 35.3 32.0-36.0 [place] 519362-02-21 06:51:00 Test Item Value Reference Range Interpretation Comments RDW (test code = RDW) 15.9 11.5-14.5 [place] 519362-02-21 06:51:00 Test Item Value Reference Range Interpretation Comments Platelet (test code = Platelet) 81 133-450 [place] 519362-02-21 06:51:00 Test Item Value Reference Range Interpretation Comments MPV (test code = MPV) 7.6 7.4-10.4 [place] 519362-02-21 06:51:00 Test Item Value Reference Range Interpretation Comments Segs (test code = Segs) 73.7 45.0-75.0 [place] 519362-02-21 06:51:00 Test Item Value Reference Range Interpretation Comments Lymphocytes (test code = Lymphocytes) 10.9 20.0-40.0 [place] 519362-02-21 06:51:00 Test Item Value Reference Range Interpretation Comments Monocytes (test code = Monocytes) 14.4 2.0-12.0 [place] 519362-02-21 06:51:00 Test Item Value Reference Range Interpretation Comments Eosinophils (test code = 0.6 See_Comment [A utomated message] The Eosinophils) system which ge nerated this result tra nsmitted reference range : <=4.0. The reference r patria was not used to int erpret this result as normal/abnormal . [facility] Test Item Value Reference Range Interpretation Comments Basophils (test code = 0.4 See_Comment [Aut omated message] The Basophils) system which ge nerated this result tra nsmitted reference range : <=1.0. The reference r patria was not used to int erpret this result as normal/abnormal . [place] 519362-02-21 06:51:00 Test Item Value Reference Range Interpretation Comments Neutrophils # (test code = Neutrophils 7.9 1.5-8.1 #) [place] 519362-02-21 06:51:00 Test Item Value Reference Range Interpretation Comments Lymphocytes # (test code = Lymphocytes 1.2 1.0-5.5 #) [place] 519362-02-21 06:51:00 Test Item Value Reference Range Interpretation Comments Monocytes # (test code 1.5 See_Comment [Aut omated message] The = Monocytes #) system which generated this result tra nsmitted reference range : <=0.8. The reference r patria was not used to int erpret this result as normal/abnormal . [facility]87[facility] 06:51:00 Test Item Value Reference Range Interpretation Comments Eosinophils # (test code 0.1 See_Comment [A utomated message] The = Eosinophils #) system whic h generated this result tra nsmitted reference range : <=0.5. The reference r patria was not used to int erpret this result as normal/abnormal . [place] 542562-02-21 06:51:00 Test Item Value Reference Range Interpretation Comments Glucose Lvl (test code = Glucose Lvl) 114 70-99 [place] 542562-02-21 06:51:00 Test Item Value Reference Range Interpretation Comments BUN (test code = BUN) 28 7-22 [place] 542562-02-21 06:51:00 Test Item Value Reference Range Interpretation Comments Creatinine Lvl (test code = Creatinine 1.08 0.50-1.40 Lvl) [place] 542562-02-21 06:51:00 Test Item Value Reference Range Interpretation Comments Sodium Lvl (test code = Sodium Lvl) 141 135-145 [place] 542562-02-21 06:51:00 Test Item Value Reference Range Interpretation Comments Potassium Lvl (test code = Potassium 3.7 3.5-5.1 Lvl) [place] 542562-02-21 06:51:00 Test Item Value Reference Range Interpretation Comments Chloride Lvl (test code = Chloride Lvl) 110 95-109 [place] 542562-02-21 06:51:00 Test Item Value Reference Range Interpretation Comments CO2 (test code = CO2) 28 24-32 [place] 542562-02-21 06:51:00 Test Item Value Reference Range Interpretation Comments Calcium Lvl (test code = Calcium Lvl) 8.1 8.5-10.5 [place] 542562-02-21 06:51:00 Test Item Value Reference Range Interpretation Comments AGAP (test code = AGAP) 6.7 10.0-20.0 [place] 542562-02-21 06:51:00 Test Item Value Reference Range Interpretation Comments eGFR (test code = eGFR) 48 [place] 542562-02-21 06:51:00 Test Item Value Reference Range Interpretation Comments Magnesium Lvl (test code = Magnesium 2.4 1.8-2.4 Lvl) [place] 542562-02-21 06:51:00 Test Item Value Reference Range Interpretation Comments Phosphorus (test code = Phosphorus) 3.5 2.5-4.5 [place] 519362-02-21 06:51:00 Test Item Value Reference Range Interpretation Comments WBC (test code = WBC) 10.7 3.7-10.4 [place] 64257-02-21 06:51:00 Test Item Value Reference Range Interpretation Comments RBC (test code = RBC) 2.99 4.20-5.40 [place] 519362-02-21 06:51:00 Test Item Value Reference Range Interpretation Comments Hgb (test code = Hgb) 9.3 12.0-16.0 [place] 64257-02-21 06:51:00 Test Item Value Reference Range Interpretation Comments Hct (test code = Hct) 26.2 36.0-48.0 [place] 519362-02-21 06:51:00 Test Item Value Reference Range Interpretation Comments MCV (test code = MCV) 87.6 80.0-98.0 [place] 519362-02-21 06:51:00 Test Item Value Reference Range Interpretation Comments MCH (test code = MCH) 30.9 pg 27.0-31.0 [place] 519362-02-21 06:51:00 Test Item Value Reference Range Interpretation Comments MCHC (test code = MCHC) 35.3 32.0-36.0 [place] 519362-02-21 06:51:00 Test Item Value Reference Range Interpretation Comments RDW (test code = RDW) 15.9 11.5-14.5 [place] 519362-02-21 06:51:00 Test Item Value Reference Range Interpretation Comments Platelet (test code = Platelet) 81 133-450 [place] 519362-02-21 06:51:00 Test Item Value Reference Range Interpretation Comments MPV (test code = MPV) 7.6 7.4-10.4 [place] 519362-02-21 06:51:00 Test Item Value Reference Range Interpretation Comments Segs (test code = Segs) 73.7 45.0-75.0 [place] 519362-02-21 06:51:00 Test Item Value Reference Range Interpretation Comments Lymphocytes (test code = Lymphocytes) 10.9 20.0-40.0 [place] 519362-02-21 06:51:00 Test Item Value Reference Range Interpretation Comments Monocytes (test code = Monocytes) 14.4 2.0-12.0 [place] 519362-02-21 06:51:00 Test Item Value Reference Range Interpretation Comments Eosinophils (test code = 0.6 See_Comment [A utomated message] The Eosinophils) system which ge nerated this result tra nsmitted reference range : <=4.0. The reference r patria was not used to int erpret this result as normal/abnormal . [place] 519362-02-21 06:51:00 Test Item Value Reference Range Interpretation Comments Basophils (test code = 0.4 See_Comment [Aut omated message] The Basophils) system which ge nerated this result tra nsmitted reference range : <=1.0. The reference r patria was not used to int erpret this result as normal/abnormal . [place] 519362-02-21 06:51:00 Test Item Value Reference Range Interpretation Comments Neutrophils # (test code = Neutrophils 7.9 1.5-8.1 #) [place] 519362-02-21 06:51:00 Test Item Value Reference Range Interpretation Comments Lymphocytes # (test code = Lymphocytes 1.2 1.0-5.5 #) [place] 64257-02-21 06:51:00 Test Item Value Reference Range Interpretation Comments Monocytes # (test code 1.5 See_Comment [Aut omated message] The = Monocytes #) system which generated this result tra nsmitted reference range : <=0.8. The reference r patria was not used to int erpret this result as normal/abnormal . [place] 519362-02-21 06:51:00 Test Item Value Reference Range Interpretation Comments Eosinophils # (test code 0.1 See_Comment [A utomated message] The = Eosinophils #) system whic h generated this result tra nsmitted reference range : <=0.5. The reference r patria was not used to int erpret this result as normal/abnormal . [place] 542562-02-21 06:51:00 Test Item Value Reference Range Interpretation Comments Glucose Lvl (test code = Glucose Lvl) 114 70-99 [place] 542562-02-21 06:51:00 Test Item Value Reference Range Interpretation Comments BUN (test code = BUN) 28 7-22 [place] 542562-02-21 06:51:00 Test Item Value Reference Range Interpretation Comments Creatinine Lvl (test code = Creatinine 1.08 0.50-1.40 Lvl) [place] 542562-02-21 06:51:00 Test Item Value Reference Range Interpretation Comments Sodium Lvl (test code = Sodium Lvl) 141 135-145 [place] 542562-02-21 06:51:00 Test Item Value Reference Range Interpretation Comments Potassium Lvl (test code = Potassium 3.7 3.5-5.1 Lvl) [place] 542562-02-21 06:51:00 Test Item Value Reference Range Interpretation Comments Chloride Lvl (test code = Chloride Lvl) 110 95-109 [place] 542562-02-21 06:51:00 Test Item Value Reference Range Interpretation Comments CO2 (test code = CO2) 28 24-32 [place] 542562-02-21 06:51:00 Test Item Value Reference Range Interpretation Comments Calcium Lvl (test code = Calcium Lvl) 8.1 8.5-10.5 [place] 542562-02-21 06:51:00 Test Item Value Reference Range Interpretation Comments AGAP (test code = AGAP) 6.7 10.0-20.0 [place] 542562-02-21 06:51:00 Test Item Value Reference Range Interpretation Comments eGFR (test code = eGFR) 48 [place] 542562-02-21 06:51:00 Test Item Value Reference Range Interpretation Comments Magnesium Lvl (test code = Magnesium 2.4 1.8-2.4 Lvl) [place] 542562-02-21 06:51:00 Test Item Value Reference Range Interpretation Comments Phosphorus (test code = Phosphorus) 3.5 2.5-4.5 [place] 519362-02-21 06:51:00 Test Item Value Reference Range Interpretation Comments WBC (test code = WBC) 10.7 3.7-10.4 [place] 519362-02-21 06:51:00 Test Item Value Reference Range Interpretation Comments RBC (test code = RBC) 2.99 4.20-5.40 [place] 519362-02-21 06:51:00 Test Item Value Reference Range Interpretation Comments Hgb (test code = Hgb) 9.3 12.0-16.0 [place] 519362-02-21 06:51:00 Test Item Value Reference Range Interpretation Comments Hct (test code = Hct) 26.2 36.0-48.0 [place] 519362-02-21 06:51:00 Test Item Value Reference Range Interpretation Comments MCV (test code = MCV) 87.6 80.0-98.0 [place] 519362-02-21 06:51:00 Test Item Value Reference Range Interpretation Comments MCH (test code = MCH) 30.9 pg 27.0-31.0 [place] 519362-02-21 06:51:00 Test Item Value Reference Range Interpretation Comments MCHC (test code = MCHC) 35.3 32.0-36.0 [place] 519362-02-21 06:51:00 Test Item Value Reference Range Interpretation Comments RDW (test code = RDW) 15.9 11.5-14.5 [place] 519362-02-21 06:51:00 Test Item Value Reference Range Interpretation Comments Platelet (test code = Platelet) 81 133-450 [place] 519362-02-21 06:51:00 Test Item Value Reference Range Interpretation Comments MPV (test code = MPV) 7.6 7.4-10.4 [place] 519362-02-21 06:51:00 Test Item Value Reference Range Interpretation Comments Segs (test code = Segs) 73.7 45.0-75.0 [place] 519362-02-21 06:51:00 Test Item Value Reference Range Interpretation Comments Lymphocytes (test code = Lymphocytes) 10.9 20.0-40.0 [place] 519362-02-21 06:51:00 Test Item Value Reference Range Interpretation Comments Monocytes (test code = Monocytes) 14.4 2.0-12.0 [place] 519362-02-21 06:51:00 Test Item Value Reference Range Interpretation Comments Eosinophils (test code = 0.6 See_Comment [A utomated message] The Eosinophils) system which ge nerated this result tra nsmitted reference range : <=4.0. The reference r patria was not used to int erpret this result as normal/abnormal . [place] 519362-02-21 06:51:00 Test Item Value Reference Range Interpretation Comments Basophils (test code = 0.4 See_Comment [Aut omated message] The Basophils) system which ge nerated this result tra nsmitted reference range : <=1.0. The reference r patria was not used to int erpret this result as normal/abnormal . [place] 519362-02-21 06:51:00 Test Item Value Reference Range Interpretation Comments Neutrophils # (test code = Neutrophils 7.9 1.5-8.1 #) [place] 519362-02-21 06:51:00 Test Item Value Reference Range Interpretation Comments Lymphocytes # (test code = Lymphocytes 1.2 1.0-5.5 #) [place] 519362-02-21 06:51:00 Test Item Value Reference Range Interpretation Comments Monocytes # (test code 1.5 See_Comment [Aut omated message] The = Monocytes #) system which generated this result tra nsmitted reference range : <=0.8. The reference r patria was not used to int erpret this result as normal/abnormal . [place] 519362-02-21 06:51:00 Test Item Value Reference Range Interpretation Comments Eosinophils # (test code 0.1 See_Comment [A utomated message] The = Eosinophils #) system whic h generated this result tra nsmitted reference range : <=0.5. The reference r patria was not used to int erpret this result as normal/abnormal . [place] 542562-02-21 06:51:00 Test Item Value Reference Range Interpretation Comments Glucose Lvl (test code = Glucose Lvl) 114 70-99 [place] 542562-02-21 06:51:00 Test Item Value Reference Range Interpretation Comments BUN (test code = BUN) 28 7-22 [place] 542562-02-21 06:51:00 Test Item Value Reference Range Interpretation Comments Creatinine Lvl (test code = Creatinine 1.08 0.50-1.40 Lvl) [place] 542562-02-21 06:51:00 Test Item Value Reference Range Interpretation Comments Sodium Lvl (test code = Sodium Lvl) 141 135-145 [place] 542562-02-21 06:51:00 Test Item Value Reference Range Interpretation Comments Potassium Lvl (test code = Potassium 3.7 3.5-5.1 Lvl) [place] 542562-02-21 06:51:00 Test Item Value Reference Range Interpretation Comments Chloride Lvl (test code = Chloride Lvl) 110 95-109 [place] 542562-02-21 06:51:00 Test Item Value Reference Range Interpretation Comments CO2 (test code = CO2) 28 24-32 [place] 542562-02-21 06:51:00 Test Item Value Reference Range Interpretation Comments Calcium Lvl (test code = Calcium Lvl) 8.1 8.5-10.5 [place] 542562-02-21 06:51:00 Test Item Value Reference Range Interpretation Comments AGAP (test code = AGAP) 6.7 10.0-20.0 [place] 542562-02-21 06:51:00 Test Item Value Reference Range Interpretation Comments eGFR (test code = eGFR) 48 [place] 542562-02-21 06:51:00 Test Item Value Reference Range Interpretation Comments Magnesium Lvl (test code = Magnesium 2.4 1.8-2.4 Lvl) [place] 542562-02-21 06:51:00 Test Item Value Reference Range Interpretation Comments Phosphorus (test code = Phosphorus) 3.5 2.5-4.5 [place] 519362-02-21 06:51:00 Test Item Value Reference Range Interpretation Comments WBC (test code = WBC) 10.7 3.7-10.4 [place] 519362-02-21 06:51:00 Test Item Value Reference Range Interpretation Comments RBC (test code = RBC) 2.99 4.20-5.40 [place] 519362-02-21 06:51:00 Test Item Value Reference Range Interpretation Comments Hgb (test code = Hgb) 9.3 12.0-16.0 [place] 519362-02-21 06:51:00 Test Item Value Reference Range Interpretation Comments Hct (test code = Hct) 26.2 36.0-48.0 [place] 519362-02-21 06:51:00 Test Item Value Reference Range Interpretation Comments MCV (test code = MCV) 87.6 80.0-98.0 [place] 519362-02-21 06:51:00 Test Item Value Reference Range Interpretation Comments MCH (test code = MCH) 30.9 pg 27.0-31.0 [place] 519362-02-21 06:51:00 Test Item Value Reference Range Interpretation Comments MCHC (test code = MCHC) 35.3 32.0-36.0 [place] 519362-02-21 06:51:00 Test Item Value Reference Range Interpretation Comments RDW (test code = RDW) 15.9 11.5-14.5 [place] 519362-02-21 06:51:00 Test Item Value Reference Range Interpretation Comments Platelet (test code = Platelet) 81 133-450 [place] 519362-02-21 06:51:00 Test Item Value Reference Range Interpretation Comments MPV (test code = MPV) 7.6 7.4-10.4 [place] 519362-02-21 06:51:00 Test Item Value Reference Range Interpretation Comments Segs (test code = Segs) 73.7 45.0-75.0 [place] 519362-02-21 06:51:00 Test Item Value Reference Range Interpretation Comments Lymphocytes (test code = Lymphocytes) 10.9 20.0-40.0 [place] 519362-02-21 06:51:00 Test Item Value Reference Range Interpretation Comments Monocytes (test code = Monocytes) 14.4 2.0-12.0 [place] 519362-02-21 06:51:00 Test Item Value Reference Range Interpretation Comments Eosinophils (test code = 0.6 See_Comment [A utomated message] The Eosinophils) system which ge nerated this result tra nsmitted reference range : <=4.0. The reference r patria was not used to int erpret this result as normal/abnormal . [place] 519362-02-21 06:51:00 Test Item Value Reference Range Interpretation Comments Basophils (test code = 0.4 See_Comment [Aut omated message] The Basophils) system which ge nerated this result tra nsmitted reference range : <=1.0. The reference r patria was not used to int erpret this result as normal/abnormal . [place] 519362-02-21 06:51:00 Test Item Value Reference Range Interpretation Comments Neutrophils # (test code = Neutrophils 7.9 1.5-8.1 #) [place] 519362-02-21 06:51:00 Test Item Value Reference Range Interpretation Comments Lymphocytes # (test code = Lymphocytes 1.2 1.0-5.5 #) [place] 519362-02-21 06:51:00 Test Item Value Reference Range Interpretation Comments Monocytes # (test code 1.5 See_Comment [Aut omated message] The = Monocytes #) system which generated this result tra nsmitted reference range : <=0.8. The reference r patria was not used to int erpret this result as normal/abnormal . [facility]XOC[facility] 06:51:00 Test Item Value Reference Range Interpretation Comments Eosinophils # (test code 0.1 See_Comment [A utomated message] The = Eosinophils #) system [employer] [facility] generated this result tra nsmitted reference range : <=0.5. The reference r patria was not used to int erpret this result as normal/abnormal . [place] 542562-02-21 06:51:00 Test Item Value Reference Range Interpretation Comments Glucose Lvl (test code = Glucose Lvl) 114 70-99 [place] 542562-02-21 06:51:00 Test Item Value Reference Range Interpretation Comments BUN (test code = BUN) 28 7-22 [place] 542562-02-21 06:51:00 Test Item Value Reference Range Interpretation Comments Creatinine Lvl (test code = Creatinine 1.08 0.50-1.40 Lvl) [place] 542562-02-21 06:51:00 Test Item Value Reference Range Interpretation Comments Sodium Lvl (test code = Sodium Lvl) 141 135-145 [place] 542562-02-21 06:51:00 Test Item Value Reference Range Interpretation Comments Potassium Lvl (test code = Potassium 3.7 3.5-5.1 Lvl) [place] 542562-02-21 06:51:00 Test Item Value Reference Range Interpretation Comments Chloride Lvl (test code = Chloride Lvl) 110 95-109 [place] 542562-02-21 06:51:00 Test Item Value Reference Range Interpretation Comments CO2 (test code = CO2) 28 24-32 [place] 542562-02-21 06:51:00 Test Item Value Reference Range Interpretation Comments Calcium Lvl (test code = Calcium Lvl) 8.1 8.5-10.5 [place] 542562-02-21 06:51:00 Test Item Value Reference Range Interpretation Comments AGAP (test code = AGAP) 6.7 10.0-20.0 [place] 542562-02-21 06:51:00 Test Item Value Reference Range Interpretation Comments eGFR (test code = eGFR) 48 [place] 542562-02-21 06:51:00 Test Item Value Reference Range Interpretation Comments Magnesium Lvl (test code = Magnesium 2.4 1.8-2.4 Lvl) [facility]2022-02-21 06:51:00 Test Item Value Reference Range Interpretation Comments Phosphorus (test code = Phosphorus) 3.5 2.5-4.5 [facility]19[facility]:00 Test Item Value Reference Range Interpretation Comments WBC (test code = WBC) 10.7 3.7-10.4 [facility]UbuycfgSBSNKIPFIZ1689-72-31 06:51:00 Test Item Value Reference Range Interpretation Comments RBC (test code = RBC) 2.99 4.20-5.40 [place] 519362-02-21 06:51:00 Test Item Value Reference Range Interpretation Comments Hgb (test code = Hgb) 9.3 12.0-16.0 [facility]AywxyuoJQACDWXDFF2103-84-21 06:51:00 Test Item Value Reference Range Interpretation Comments Hct (test code = Hct) 26.2 36.0-48.0 [facility] CenterFmwkbeiGRBFTTZEMG6164-48-26 06:51:00 Test Item Value Reference Range Interpretation Comments MCV (test code = MCV) 87.6 80.0-98.0 [place] 519362-02-21 06:51:00 Test Item Value Reference Range Interpretation Comments MCH (test code = MCH) 30.9 pg 27.0-31.0 [facility] CenterXtwixjuSDAWKIIGAJ2426-94-71 06:51:00 Test Item Value Reference Range Interpretation Comments MCHC (test code = MCHC) 35.3 32.0-36.0 [facility] CenterJinldflPMMEMFIYMR6049-91-61 06:51:00 Test Item Value Reference Range Interpretation Comments RDW (test code = RDW) 15.9 11.5-14.5 [place] 519362-02-21 06:51:00 Test Item Value Reference Range Interpretation Comments Platelet (test code = Platelet) 81 133-450 [facility] CenterWttvnrjYYFELPJCOZ9012-53-16 06:51:00 Test Item Value Reference Range Interpretation Comments MPV (test code = MPV) 7.6 7.4-10.4 [facility] CenterVonszjyKIMXAFHRAL7535-32-75 06:51:00 Test Item Value Reference Range Interpretation Comments Segs (test code = Segs) 73.7 45.0-75.0 [place] 519362-02-21 06:51:00 Test Item Value Reference Range Interpretation Comments Lymphocytes (test code = Lymphocytes) 10.9 20.0-40.0 [place] 519362-02-21 06:51:00 Test Item Value Reference Range Interpretation Comments Monocytes (test code = Monocytes) 14.4 2.0-12.0 [place] 519362-02-21 06:51:00 Test Item Value Reference Range Interpretation Comments Eosinophils (test code = 0.6 See_Comment [A utomated message] The Eosinophils) system which ge nerated this result tra nsmitted reference range : <=4.0. The reference r patria was not used to int erpret this result as normal/abnormal . [place] 64257-02-21 06:51:00 Test Item Value Reference Range Interpretation Comments Basophils (test code = 0.4 See_Comment [Aut omated message] The Basophils) system which ge nerated this result tra nsmitted reference range : <=1.0. The reference r patria was not used to int erpret this result as normal/abnormal . [place] 519362-02-21 06:51:00 Test Item Value Reference Range Interpretation Comments Neutrophils # (test code = Neutrophils 7.9 1.5-8.1 #) [place] 519362-02-21 06:51:00 Test Item Value Reference Range Interpretation Comments Lymphocytes # (test code = Lymphocytes 1.2 1.0-5.5 #) [place] 64[address]-02-21 06:51:00 Test Item Value Reference Range Interpretation Comments Monocytes # (test code 1.5 See_Comment [Aut omated message] The = Monocytes #) system which generated this result tra nsmitted reference range : <=0.8. The reference r patria was not used to int erpret this result as normal/abnormal . [place] 64[address]-02-21 06:51:00 Test Item Value Reference Range Interpretation Comments Eosinophils # (test code 0.1 See_Comment [A utomated message] The = Eosinophils #) system [facility] h generated this result tra nsmitted reference range : <=0.5. The reference r patria was not used to int erpret this result as normal/abnormal . [facility]2022-02-21 06:51:00 Test Item Value Reference Range Interpretation Comments Glucose Lvl (test code = Glucose Lvl) 114 70-99 [place] 542562-02-21 06:51:00 Test Item Value Reference Range Interpretation Comments BUN (test code = BUN) 28 7-22 [place] 542562-02-21 06:51:00 Test Item Value Reference Range Interpretation Comments Creatinine Lvl (test code = Creatinine 1.08 0.50-1.40 Lvl) [place] 542562-02-21 06:51:00 Test Item Value Reference Range Interpretation Comments Sodium Lvl (test code = Sodium Lvl) 141 135-145 [place] 542562-02-21 06:51:00 Test Item Value Reference Range Interpretation Comments Potassium Lvl (test code = Potassium 3.7 3.5-5.1 Lvl) [place] 542562-02-21 06:51:00 Test Item Value Reference Range Interpretation Comments Chloride Lvl (test code = Chloride Lvl) 110 95-109 [place] 542562-02-21 06:51:00 Test Item Value Reference Range Interpretation Comments CO2 (test code = CO2) 28 24-32 [facility]2022-02-21 06:51:00 Test Item Value Reference Range Interpretation Comments Calcium Lvl (test code = Calcium Lvl) 8.1 8.5-10.5 [place] 542562-02-21 06:51:00 Test Item Value Reference Range Interpretation Comments AGAP (test code = AGAP) 6.7 10.0-20.0 [place] 542562-02-21 06:51:00 Test Item Value Reference Range Interpretation Comments eGFR (test code = eGFR) 48 [place] 542562-02-21 06:51:00 Test Item Value Reference Range Interpretation Comments Magnesium Lvl (test code = Magnesium 2.4 1.8-2.4 Lvl) [place] 542562-02-21 06:51:00 Test Item Value Reference Range Interpretation Comments Phosphorus (test code = Phosphorus) 3.5 2.5-4.5 [facility]qXFJCXJPTAW4080[facility]73-[facility] 06:51:00 Test Item Value Reference Range Interpretation Comments WBC (test code = WBC) 10.7 3.7-10.4 [facility] 06:51:00 Test Item Value Reference Range Interpretation Comments RBC (test code = RBC) 2.99 4.20-5.40 [place] 519362-02-21 06:51:00 Test Item Value Reference Range Interpretation Comments Hgb (test code = Hgb) 9.3 12.0-16.0 [place] 519362-02-21 06:51:00 Test Item Value Reference Range Interpretation Comments Hct (test code = Hct) 26.2 36.0-48.0 [facility]psKJCLAIVTBB3225-63-53 06:51:00 Test Item Value Reference Range Interpretation Comments MCV (test code = MCV) 87.6 80.0-98.0 [place] 519362-02-21 06:51:00 Test Item Value Reference Range Interpretation Comments MCH (test code = MCH) 30.9 pg 27.0-31.0 [place] 519362-02-21 06:51:00 Test Item Value Reference Range Interpretation Comments MCHC (test code = MCHC) 35.3 32.0-36.0 [facility]ubwexqTOAKAMIQML8012-35-31 06:51:00 Test Item Value Reference Range Interpretation Comments RDW (test code = RDW) 15.9 11.5-14.5 [place] 519362-02-21 06:51:00 Test Item Value Reference Range Interpretation Comments Platelet (test code = Platelet) 81 133-450 [facility]ZvqyaewTPVMIKQTAD1875-83-85 06:51:00 Test Item Value Reference Range Interpretation Comments MPV (test code = MPV) 7.6 7.4-10.4 [place] 519362-02-21 06:51:00 Test Item Value Reference Range Interpretation Comments Segs (test code = Segs) 73.7 45.0-75.0 [place] 519362-02-21 06:51:00 Test Item Value Reference Range Interpretation Comments Lymphocytes (test code = Lymphocytes) 10.9 20.0-40.0 [place] 519362-02-21 06:51:00 Test Item Value Reference Range Interpretation Comments Monocytes (test code = Monocytes) 14.4 2.0-12.0 [facility]nzkelkSNELARIWOK5295-23-03 06:51:00 Test Item Value Reference Range Interpretation Comments Eosinophils (test code = 0.6 See_Comment [A utomated message] The Eosinophils) system which ge nerated this result tra nsmitted reference range : <=4.0. The reference r patria was not used to int erpret this result as normal/abnormal . [facility]PjdkuwvJRJKKDYIOV1940-98-35 06:51:00 Test Item Value Reference Range Interpretation Comments Basophils (test code = 0.4 See_Comment [Aut omated message] The Basophils) system which ge nerated this result tra nsmitted reference range : <=1.0. The reference r patria was not used to int erpret this result as normal/abnormal . [facility]QwbikwqGIEWBJNTQP1333-03-22 06:51:00 Test Item Value Reference Range Interpretation Comments Neutrophils # (test code = Neutrophils 7.9 1.5-8.1 #) [facility]OhrjizdZSZIQHNJSZ8727-84-82 06:51:00 Test Item Value Reference Range Interpretation Comments Lymphocytes # (test code = Lymphocytes 1.2 1.0-5.5 #) [facility] CenterUxzfprmLMKPZXPMIE7284-76-53 06:51:00 Test Item Value Reference Range Interpretation Comments Monocytes # (test code 1.5 See_Comment [Aut omated message] The = Monocytes #) system which generated this result tra nsmitted reference range : <=0.8. The reference r patria was not used to int erpret this result as normal/abnormal . [facility] CenterJxakgcqZXCAQUJXGI4870-79-80 06:51:00 Test Item Value Reference Range Interpretation Comments Eosinophils # (test code 0.1 See_Comment [A utomated message] The = Eosinophils #) system whic h generated this result tra nsmitted reference range : <=0.5. The reference r patria was not used to int erpret this result as normal/abnormal . [facility] [id number] 06:27:00 Test Item Value Reference Range Interpretation Comments RBC product (test code Product available = RBC product) (12/31/21 12:27 AM) [facility] [id number] 06:27:00 Test Item Value Reference Range Interpretation Comments RBC product (test code Product available = RBC product) (12/31/21 12:27 AM) [facility] [id number] 06:27:00 Test Item Value Reference Range Interpretation Comments RBC product (test code Product available = RBC product) (12/31/21 12:27 AM) [facility] [id number] 06:27:00 Test Item Value Reference Range Interpretation Comments RBC product (test code Product available = RBC product) (12/31/21 12:27 AM) [facility] [id number] 06:27:00 Test Item Value Reference Range Interpretation Comments RBC product (test code Product available = RBC product) (12/31/21 12:27 AM) [facility] [id number] 06:27:00 Test Item Value Reference Range Interpretation Comments RBC product (test code Product available = RBC product) (12/31/21 12:27 AM) [facility] [id number] 06:27:00 Test Item Value Reference Range Interpretation Comments RBC product (test code Product available = RBC product) (12/31/21 12:27 AM) [facility] [id number] 06:27:00 Test Item Value Reference Range Interpretation Comments RBC product (test code Product available = RBC product) (12/31/21 12:27 AM) [facility] [id number] 06:27:00 Test Item Value Reference Range Interpretation Comments RBC product (test code Product available = RBC product) (12/31/21 12:27 AM) [facility] [id number] 06:27:00 Test Item Value Reference Range Interpretation Comments RBC product (test code Product available = RBC product) (12/31/21 12:27 AM) [facility] [id number] 06:27:00 Test Item Value Reference Range Interpretation Comments RBC product (test code Product available = RBC product) (12/31/21 12:27 AM) [facility] [id number] 06:27:00 Test Item Value Reference Range Interpretation Comments RBC product (test code Product available = RBC product) (12/31/21 12:27 AM) [facility]2022-02-20 06:20:00 Test Item Value Reference Range Interpretation Comments Glucose Lvl (test code = Glucose Lvl) 150 70-99 [facility]2022-02-20 06:20:00 Test Item Value Reference Range Interpretation Comments BUN (test code = BUN) 39 7-22 [facility]2022-02-20 06:20:00 Test Item Value Reference Range Interpretation Comments Creatinine Lvl (test code = Creatinine 1.52 0.50-1.40 Lvl) [facility]2022-02-20 06:20:00 Test Item Value Reference Range Interpretation Comments Sodium Lvl (test code = Sodium Lvl) 143 135-145 [facility]2022-02-20 06:20:00 Test Item Value Reference Range Interpretation Comments Potassium Lvl (test code = Potassium 4.0 3.5-5.1 Lvl) [facility]2022-02-20 06:20:00 Test Item Value Reference Range Interpretation Comments Chloride Lvl (test code = Chloride Lvl) 112 95-109 [facility]2022-02-20 06:20:00 Test Item Value Reference Range Interpretation Comments CO2 (test code = CO2) 22 24-32 [facility]2022-02-20 06:20:00 Test Item Value Reference Range Interpretation Comments AGAP (test code = AGAP) 13.0 10.0-20.0 [facility]2022-02-20 06:20:00 Test Item Value Reference Range Interpretation Comments Calcium Lvl (test code = Calcium Lvl) 9.8 8.5-10.5 [facility]2022-02-20 06:20:00 Test Item Value Reference Range Interpretation Comments Albumin Lvl (test code = Albumin Lvl) 2.2 3.5-5.0 [facility]2022-02-20 06:20:00 Test Item Value Reference Range Interpretation Comments Phosphorus (test code = Phosphorus) 5.4 2.5-4.5 [facility]2022-02-20 06:20:00 Test Item Value Reference Range Interpretation Comments eGFR (test code = eGFR) 32 [facility]2022-02-20 06:20:00 Test Item Value Reference Range Interpretation Comments Glucose Lvl (test code = Glucose Lvl) 150 70-99 [place] 542562-02-20 06:20:00 Test Item Value Reference Range Interpretation Comments BUN (test code = BUN) 39 7-22 [facility]2022-02-20 06:20:00 Test Item Value Reference Range Interpretation Comments Creatinine Lvl (test code = Creatinine 1.52 0.50-1.40 Lvl) [facility]2022-02-20 06:20:00 Test Item Value Reference Range Interpretation Comments Sodium Lvl (test code = Sodium Lvl) 143 135-145 [email or web address] [id number] 06:20:00 Test Item Value Reference Range Interpretation Comments Potassium Lvl (test code = Potassium 4.0 3.5-5.1 Lvl) [email or web address] [id number] 06:20:00 Test Item Value Reference Range Interpretation Comments Chloride Lvl (test code = Chloride Lvl) 112 95-109 [email or web address] [id number] 06:20:00 Test Item Value Reference Range Interpretation Comments CO2 (test code = CO2) 22 24-32 [facility]2022-02-20 06:20:00 Test Item Value Reference Range Interpretation Comments AGAP (test code = AGAP) 13.0 10.0-20.0 [email or web address] [id number] 06:20:00 Test Item Value Reference Range Interpretation Comments Calcium Lvl (test code = Calcium Lvl) 9.8 8.5-10.5 [facility] [id number] 06:20:00 Test Item Value Reference Range Interpretation Comments Albumin Lvl (test code = Albumin Lvl) 2.2 3.5-5.0 [facility] [id number] 06:20:00 Test Item Value Reference Range Interpretation Comments Phosphorus (test code = Phosphorus) 5.4 2.5-4.5 [email or web address] [id number] 06:20:00 Test Item Value Reference Range Interpretation Comments eGFR (test code = eGFR) 32 [facility]2022-02-20 06:20:00 Test Item Value Reference Range Interpretation Comments Glucose Lvl (test code = Glucose Lvl) 150 70-99 [email or web address] [id number] 06:20:00 Test Item Value Reference Range Interpretation Comments BUN (test code = BUN) 39 7-22 [place] 542562-02-20 06:20:00 Test Item Value Reference Range Interpretation Comments Creatinine Lvl (test code = Creatinine 1.52 0.50-1.40 Lvl) [place] 542562-02-20 06:20:00 Test Item Value Reference Range Interpretation Comments Sodium Lvl (test code = Sodium Lvl) 143 135-145 [place] 542562-02-20 06:20:00 Test Item Value Reference Range Interpretation Comments Potassium Lvl (test code = Potassium 4.0 3.5-5.1 Lvl) [place] 542562-02-20 06:20:00 Test Item Value Reference Range Interpretation Comments Chloride Lvl (test code = Chloride Lvl) 112 95-109 [place] 542562-02-20 06:20:00 Test Item Value Reference Range Interpretation Comments CO2 (test code = CO2) 22 24-32 [place] 542562-02-20 06:20:00 Test Item Value Reference Range Interpretation Comments AGAP (test code = AGAP) 13.0 10.0-20.0 [place] 542562-02-20 06:20:00 Test Item Value Reference Range Interpretation Comments Calcium Lvl (test code = Calcium Lvl) 9.8 8.5-10.5 [place] 542562-02-20 06:20:00 Test Item Value Reference Range Interpretation Comments Albumin Lvl (test code = Albumin Lvl) 2.2 3.5-5.0 [place] 542562-02-20 06:20:00 Test Item Value Reference Range Interpretation Comments Phosphorus (test code = Phosphorus) 5.4 2.5-4.5 [place] 542562-02-20 06:20:00 Test Item Value Reference Range Interpretation Comments eGFR (test code = eGFR) 32 [place] 542562-02-20 06:20:00 Test Item Value Reference Range Interpretation Comments Glucose Lvl (test code = Glucose Lvl) 150 70-99 [place] 542562-02-20 06:20:00 Test Item Value Reference Range Interpretation Comments BUN (test code = BUN) 39 7-22 [place] 542562-02-20 06:20:00 Test Item Value Reference Range Interpretation Comments Creatinine Lvl (test code = Creatinine 1.52 0.50-1.40 Lvl) [facility]2022-02-20 06:20:00 Test Item Value Reference Range Interpretation Comments Sodium Lvl (test code = Sodium Lvl) 143 135-145 [place] 542562-02-20 06:20:00 Test Item Value Reference Range Interpretation Comments Potassium Lvl (test code = Potassium 4.0 3.5-5.1 Lvl) [facility]2022-02-20 06:20:00 Test Item Value Reference Range Interpretation Comments Chloride Lvl (test code = Chloride Lvl) 112 95-109 [place] 542562-02-20 06:20:00 Test Item Value Reference Range Interpretation Comments CO2 (test code = CO2) 22 24-32 [place] 542562-02-20 06:20:00 Test Item Value Reference Range Interpretation Comments AGAP (test code = AGAP) 13.0 10.0-20.0 [place] 542562-02-20 06:20:00 Test Item Value Reference Range Interpretation Comments Calcium Lvl (test code = Calcium Lvl) 9.8 8.5-10.5 [place] 542562-02-20 06:20:00 Test Item Value Reference Range Interpretation Comments Albumin Lvl (test code = Albumin Lvl) 2.2 3.5-5.0 [facility]2022-02-20 06:20:00 Test Item Value Reference Range Interpretation Comments Phosphorus (test code = Phosphorus) 5.4 2.5-4.5 [place] 542562-02-20 06:20:00 Test Item Value Reference Range Interpretation Comments eGFR (test code = eGFR) 32 [place] 542562-02-20 06:20:00 Test Item Value Reference Range Interpretation Comments Glucose Lvl (test code = Glucose Lvl) 150 70-99 [facility]2022-02-20 06:20:00 Test Item Value Reference Range Interpretation Comments BUN (test code = BUN) 39 7-22 [place] 542562-02-20 06:20:00 Test Item Value Reference Range Interpretation Comments Creatinine Lvl (test code = Creatinine 1.52 0.50-1.40 Lvl) [place] 542562-02-20 06:20:00 Test Item Value Reference Range Interpretation Comments Sodium Lvl (test code = Sodium Lvl) 143 135-145 [facility]2022-02-20 06:20:00 Test Item Value Reference Range Interpretation Comments Potassium Lvl (test code = Potassium 4.0 3.5-5.1 Lvl) [facility]2022-02-20 06:20:00 Test Item Value Reference Range Interpretation Comments Chloride Lvl (test code = Chloride Lvl) 112 95-109 [facility]2022-02-20 06:20:00 Test Item Value Reference Range Interpretation Comments CO2 (test code = CO2) 22 24-32 [facility]2022-02-20 06:20:00 Test Item Value Reference Range Interpretation Comments AGAP (test code = AGAP) 13.0 10.0-20.0 [facility]2022-02-20 06:20:00 Test Item Value Reference Range Interpretation Comments Calcium Lvl (test code = Calcium Lvl) 9.8 8.5-10.5 [facility]2022-02-20 06:20:00 Test Item Value Reference Range Interpretation Comments Albumin Lvl (test code = Albumin Lvl) 2.2 3.5-5.0 [facility]2022-02-20 06:20:00 Test Item Value Reference Range Interpretation Comments Phosphorus (test code = Phosphorus) 5.4 2.5-4.5 [facility]2022-02-20 06:20:00 Test Item Value Reference Range Interpretation Comments eGFR (test code = eGFR) 32 [facility]2022-02-20 06:20:00 Test Item Value Reference Range Interpretation Comments Glucose Lvl (test code = Glucose Lvl) 150 70-99 [place] 542562-02-20 06:20:00 Test Item Value Reference Range Interpretation Comments BUN (test code = BUN) 39 7-22 [facility]2022-02-20 06:20:00 Test Item Value Reference Range Interpretation Comments Creatinine Lvl (test code = Creatinine 1.52 0.50-1.40 Lvl) [facility]2022-02-20 06:20:00 Test Item Value Reference Range Interpretation Comments Sodium Lvl (test code = Sodium Lvl) 143 135-145 [place] 542562-02-20 06:20:00 Test Item Value Reference Range Interpretation Comments Potassium Lvl (test code = Potassium 4.0 3.5-5.1 Lvl) [facility]2022-02-20 06:20:00 Test Item Value Reference Range Interpretation Comments Chloride Lvl (test code = Chloride Lvl) 112 95-109 [place] 542562-02-20 06:20:00 Test Item Value Reference Range Interpretation Comments CO2 (test code = CO2) 22 24-32 [place] 542562-02-20 06:20:00 Test Item Value Reference Range Interpretation Comments AGAP (test code = AGAP) 13.0 10.0-20.0 [place] 542562-02-20 06:20:00 Test Item Value Reference Range Interpretation Comments Calcium Lvl (test code = Calcium Lvl) 9.8 8.5-10.5 [place] 542562-02-20 06:20:00 Test Item Value Reference Range Interpretation Comments Albumin Lvl (test code = Albumin Lvl) 2.2 3.5-5.0 [facility]2022-02-20 06:20:00 Test Item Value Reference Range Interpretation Comments Phosphorus (test code = Phosphorus) 5.4 2.5-4.5 [facility]2022-02-20 06:20:00 Test Item Value Reference Range Interpretation Comments eGFR (test code = eGFR) 32 [place] 542562-02-20 06:20:00 Test Item Value Reference Range Interpretation Comments Glucose Lvl (test code = Glucose Lvl) 150 70-99 [facility]2022-02-20 06:20:00 Test Item Value Reference Range Interpretation Comments BUN (test code = BUN) 39 7-22 [place] 542562-02-20 06:20:00 Test Item Value Reference Range Interpretation Comments Creatinine Lvl (test code = Creatinine 1.52 0.50-1.40 Lvl) [facility]2022-02-20 06:20:00 Test Item Value Reference Range Interpretation Comments Sodium Lvl (test code = Sodium Lvl) 143 135-145 [place] 542562-02-20 06:20:00 Test Item Value Reference Range Interpretation Comments Potassium Lvl (test code = Potassium 4.0 3.5-5.1 Lvl) [facility]2022-02-20 06:20:00 Test Item Value Reference Range Interpretation Comments Chloride Lvl (test code = Chloride Lvl) 112 95-109 [place] 542562-02-20 06:20:00 Test Item Value Reference Range Interpretation Comments CO2 (test code = CO2) 22 24-32 [place] 542562-02-20 06:20:00 Test Item Value Reference Range Interpretation Comments AGAP (test code = AGAP) 13.0 10.0-20.0 [place] 542562-02-20 06:20:00 Test Item Value Reference Range Interpretation Comments Calcium Lvl (test code = Calcium Lvl) 9.8 8.5-10.5 [place] 542562-02-20 06:20:00 Test Item Value Reference Range Interpretation Comments Albumin Lvl (test code = Albumin Lvl) 2.2 3.5-5.0 [place] 542562-02-20 06:20:00 Test Item Value Reference Range Interpretation Comments Phosphorus (test code = Phosphorus) 5.4 2.5-4.5 [place] 542562-02-20 06:20:00 Test Item Value Reference Range Interpretation Comments eGFR (test code = eGFR) 32 [facility]2022-02-20 06:20:00 Test Item Value Reference Range Interpretation Comments Glucose Lvl (test code = Glucose Lvl) 150 70-99 [place] 542562-02-20 06:20:00 Test Item Value Reference Range Interpretation Comments BUN (test code = BUN) 39 7-22 [place] 542562-02-20 06:20:00 Test Item Value Reference Range Interpretation Comments Creatinine Lvl (test code = Creatinine 1.52 0.50-1.40 Lvl) [place] 542562-02-20 06:20:00 Test Item Value Reference Range Interpretation Comments Sodium Lvl (test code = Sodium Lvl) 143 135-145 [facility]2022-02-20 06:20:00 Test Item Value Reference Range Interpretation Comments Potassium Lvl (test code = Potassium 4.0 3.5-5.1 Lvl) [facility]2022-02-20 06:20:00 Test Item Value Reference Range Interpretation Comments Chloride Lvl (test code = Chloride Lvl) 112 95-109 [facility]2022-02-20 06:20:00 Test Item Value Reference Range Interpretation Comments CO2 (test code = CO2) 22 24-32 [facility]2022-02-20 06:20:00 Test Item Value Reference Range Interpretation Comments AGAP (test code = AGAP) 13.0 10.0-20.0 [facility]2022-02-20 06:20:00 Test Item Value Reference Range Interpretation Comments Calcium Lvl (test code = Calcium Lvl) 9.8 8.5-10.5 [facility]2022-02-20 06:20:00 Test Item Value Reference Range Interpretation Comments Albumin Lvl (test code = Albumin Lvl) 2.2 3.5-5.0 [facility]2022-02-20 06:20:00 Test Item Value Reference Range Interpretation Comments Phosphorus (test code = Phosphorus) 5.4 2.5-4.5 [facility]2022-02-20 06:20:00 Test Item Value Reference Range Interpretation Comments eGFR (test code = eGFR) 32 [facility]2022-02-20 06:20:00 Test Item Value Reference Range Interpretation Comments Glucose Lvl (test code = Glucose Lvl) 150 70-99 [facility]2022-02-20 06:20:00 Test Item Value Reference Range Interpretation Comments BUN (test code = BUN) 39 7-22 [facility]2022-02-20 06:20:00 Test Item Value Reference Range Interpretation Comments Creatinine Lvl (test code = Creatinine 1.52 0.50-1.40 Lvl) [facility]2022-02-20 06:20:00 Test Item Value Reference Range Interpretation Comments Sodium Lvl (test code = Sodium Lvl) 143 135-145 [facility]2022-02-20 06:20:00 Test Item Value Reference Range Interpretation Comments Potassium Lvl (test code = Potassium 4.0 3.5-5.1 Lvl) [facility]2022-02-20 06:20:00 Test Item Value Reference Range Interpretation Comments Chloride Lvl (test code = Chloride Lvl) 112 95-109 [place] 542562-02-20 06:20:00 Test Item Value Reference Range Interpretation Comments CO2 (test code = CO2) 22 24-32 [facility]2022-02-20 06:20:00 Test Item Value Reference Range Interpretation Comments AGAP (test code = AGAP) 13.0 10.0-20.0 [place] 542562-02-20 06:20:00 Test Item Value Reference Range Interpretation Comments Calcium Lvl (test code = Calcium Lvl) 9.8 8.5-10.5 [facility]2022-02-20 06:20:00 Test Item Value Reference Range Interpretation Comments Albumin Lvl (test code = Albumin Lvl) 2.2 3.5-5.0 [facility]2022-02-20 06:20:00 Test Item Value Reference Range Interpretation Comments Phosphorus (test code = Phosphorus) 5.4 2.5-4.5 [facility]2022-02-20 06:20:00 Test Item Value Reference Range Interpretation Comments eGFR (test code = eGFR) 32 [facility]2022-02-20 06:20:00 Test Item Value Reference Range Interpretation Comments Glucose Lvl (test code = Glucose Lvl) 150 70-99 [facility]2022-02-20 06:20:00 Test Item Value Reference Range Interpretation Comments BUN (test code = BUN) 39 7-22 [facility]2022-02-20 06:20:00 Test Item Value Reference Range Interpretation Comments Creatinine Lvl (test code = Creatinine 1.52 0.50-1.40 Lvl) [facility]2022-02-20 06:20:00 Test Item Value Reference Range Interpretation Comments Sodium Lvl (test code = Sodium Lvl) 143 135-145 [place] [id number] 06:20:00 Test Item Value Reference Range Interpretation Comments Potassium Lvl (test code = Potassium 4.0 3.5-5.1 Lvl) [facility]2022-02-20 06:20:00 Test Item Value Reference Range Interpretation Comments Chloride Lvl (test code = Chloride Lvl) 112 95-109 [facility]2022-02-20 06:20:00 Test Item Value Reference Range Interpretation Comments CO2 (test code = CO2) 22 24-32 [place] [id number] 06:20:00 Test Item Value Reference Range Interpretation Comments AGAP (test code = AGAP) 13.0 10.0-20.0 [place] 542562-02-20 06:20:00 Test Item Value Reference Range Interpretation Comments Calcium Lvl (test code = Calcium Lvl) 9.8 8.5-10.5 [place] 542562-02-20 06:20:00 Test Item Value Reference Range Interpretation Comments Albumin Lvl (test code = Albumin Lvl) 2.2 3.5-5.0 [place] 542562-02-20 06:20:00 Test Item Value Reference Range Interpretation Comments Phosphorus (test code = Phosphorus) 5.4 2.5-4.5 [place] 542562-02-20 06:20:00 Test Item Value Reference Range Interpretation Comments eGFR (test code = eGFR) 32 [place] 542562-02-20 06:20:00 Test Item Value Reference Range Interpretation Comments Glucose Lvl (test code = Glucose Lvl) 150 70-99 [place] 542562-02-20 06:20:00 Test Item Value Reference Range Interpretation Comments BUN (test code = BUN) 39 7-22 [place] 542562-02-20 06:20:00 Test Item Value Reference Range Interpretation Comments Creatinine Lvl (test code = Creatinine 1.52 0.50-1.40 Lvl) [place] 542562-02-20 06:20:00 Test Item Value Reference Range Interpretation Comments Sodium Lvl (test code = Sodium Lvl) 143 135-145 [place] 542562-02-20 06:20:00 Test Item Value Reference Range Interpretation Comments Potassium Lvl (test code = Potassium 4.0 3.5-5.1 Lvl) [place] 542562-02-20 06:20:00 Test Item Value Reference Range Interpretation Comments Chloride Lvl (test code = Chloride Lvl) 112 95-109 [place] 542562-02-20 06:20:00 Test Item Value Reference Range Interpretation Comments CO2 (test code = CO2) 22 24-32 [place] 542562-02-20 06:20:00 Test Item Value Reference Range Interpretation Comments AGAP (test code = AGAP) 13.0 10.0-20.0 [place] 542562-02-20 06:20:00 Test Item Value Reference Range Interpretation Comments Calcium Lvl (test code = Calcium Lvl) 9.8 8.5-10.5 [place] 542562-02-20 06:20:00 Test Item Value Reference Range Interpretation Comments Albumin Lvl (test code = Albumin Lvl) 2.2 3.5-5.0 [place] 542562-02-20 06:20:00 Test Item Value Reference Range Interpretation Comments Phosphorus (test code = Phosphorus) 5.4 2.5-4.5 [place] 542562-02-20 06:20:00 Test Item Value Reference Range Interpretation Comments eGFR (test code = eGFR) 32 [place] 542562-02-20 06:20:00 Test Item Value Reference Range Interpretation Comments Glucose Lvl (test code = Glucose Lvl) 150 70-99 [place] 542562-02-20 06:20:00 Test Item Value Reference Range Interpretation Comments BUN (test code = BUN) 39 7-22 [place] 542562-02-20 06:20:00 Test Item Value Reference Range Interpretation Comments Creatinine Lvl (test code = Creatinine 1.52 0.50-1.40 Lvl) [facility]2022-02-20 06:20:00 Test Item Value Reference Range Interpretation Comments Sodium Lvl (test code = Sodium Lvl) 143 135-145 [facility]2022-02-20 06:20:00 Test Item Value Reference Range Interpretation Comments Potassium Lvl (test code = Potassium 4.0 3.5-5.1 Lvl) [facility]2022-02-20 06:20:00 Test Item Value Reference Range Interpretation Comments Chloride Lvl (test code = Chloride Lvl) 112 95-109 [place] 542562-02-20 06:20:00 Test Item Value Reference Range Interpretation Comments CO2 (test code = CO2) 22 24-32 [facility]2022-02-20 06:20:00 Test Item Value Reference Range Interpretation Comments AGAP (test code = AGAP) 13.0 10.0-20.0 [place] 542562-02-20 06:20:00 Test Item Value Reference Range Interpretation Comments Calcium Lvl (test code = Calcium Lvl) 9.8 8.5-10.5 [place] 542562-02-20 06:20:00 Test Item Value Reference Range Interpretation Comments Albumin Lvl (test code = Albumin Lvl) 2.2 3.5-5.0 [place] 542562-02-20 06:20:00 Test Item Value Reference Range Interpretation Comments Phosphorus (test code = Phosphorus) 5.4 2.5-4.5 [place] 542562-02-20 06:20:00 Test Item Value Reference Range Interpretation Comments eGFR (test code = eGFR) 32 [place] 542562-02-20 06:12:00 Test Item Value Reference Range Interpretation Comments Magnesium Lvl (test code = Magnesium 1.7 1.8-2.4 Lvl) [place] 542562-02-20 06:12:00 Test Item Value Reference Range Interpretation Comments Phosphorus (test code = Phosphorus) 5.4 2.5-4.5 [place] 519362-02-20 06:12:00 Test Item Value Reference Range Interpretation Comments Segs (test code = Segs) 79.6 45.0-75.0 [place] 519362-02-20 06:12:00 Test Item Value Reference Range Interpretation Comments Lymphocytes (test code = Lymphocytes) 7.3 20.0-40.0 [place] 519362-02-20 06:12:00 Test Item Value Reference Range Interpretation Comments Monocytes (test code = Monocytes) 12.7 2.0-12.0 [place] 519362-02-20 06:12:00 Test Item Value Reference Range Interpretation Comments Eosinophils (test code = 0.2 See_Comment [A utomated message] The Eosinophils) system which ge nerated this result tra nsmitted reference range : <=4.0. The reference r patria was not used to int erpret this result as normal/abnormal . [place] 519362-02-20 06:12:00 Test Item Value Reference Range Interpretation Comments Basophils (test code = 0.2 See_Comment [Aut omated message] The Basophils) system which ge nerated this result tra nsmitted reference range : <=1.0. The reference r patria was not used to int erpret this result as normal/abnormal . [facility]1222[facility]:12:00 Test Item Value Reference Range Interpretation Comments Neutrophils # (test code = Neutrophils 7.6 1.5-8.1 #) [facility]IjbxlcbUZFRWSASYW1504-42-55 06:12:00 Test Item Value Reference Range Interpretation Comments Lymphocytes # (test code = Lymphocytes 0.7 1.0-5.5 #) [facility] CenterEawatfaMXKADQIVDC5885-84-10 06:12:00 Test Item Value Reference Range Interpretation Comments Monocytes # (test code 1.2 See_Comment [Aut omated message] The = Monocytes #) system which generated this result tra nsmitted reference range : <=0.8. The reference r patria was not used to int erpret this result as normal/abnormal . [place] 519362-02-20 06:12:00 Test Item Value Reference Range Interpretation Comments WBC (test code = WBC) 9.5 3.7-10.4 [place] 519362-02-20 06:12:00 Test Item Value Reference Range Interpretation Comments RBC (test code = RBC) 3.24 4.20-5.40 [place] 519362-02-20 06:12:00 Test Item Value Reference Range Interpretation Comments Hgb (test code = Hgb) 9.7 12.0-16.0 [place] 519362-02-20 06:12:00 Test Item Value Reference Range Interpretation Comments Hct (test code = Hct) 28.8 36.0-48.0 [facility]CcdrvgwKIAECEVPDV8036-10-19 06:12:00 Test Item Value Reference Range Interpretation Comments MCV (test code = MCV) 89.0 80.0-98.0 [place] 519362-02-20 06:12:00 Test Item Value Reference Range Interpretation Comments MCH (test code = MCH) 30.1 pg 27.0-31.0 [place] 519362-02-20 06:12:00 Test Item Value Reference Range Interpretation Comments MCHC (test code = MCHC) 33.8 32.0-36.0 [place] 519362-02-20 06:12:00 Test Item Value Reference Range Interpretation Comments RDW (test code = RDW) 16.7 11.5-14.5 [place] 519362-02-20 06:12:00 Test Item Value Reference Range Interpretation Comments Platelet (test code = Platelet) 68 133-450 [place] 519362-02-20 06:12:00 Test Item Value Reference Range Interpretation Comments MPV (test code = MPV) 7.7 7.4-10.4 [place] 542562-02-20 06:12:00 Test Item Value Reference Range Interpretation Comments Magnesium Lvl (test code = Magnesium 1.7 1.8-2.4 Lvl) [place] 542562-02-20 06:12:00 Test Item Value Reference Range Interpretation Comments Phosphorus (test code = Phosphorus) 5.4 2.5-4.5 [place] 519362-02-20 06:12:00 Test Item Value Reference Range Interpretation Comments Segs (test code = Segs) 79.6 45.0-75.0 [place] [address]-02-20 06:12:00 Test Item Value Reference Range Interpretation Comments Lymphocytes (test code = Lymphocytes) 7.3 20.0-40.0 [place] 519362-02-20 06:12:00 Test Item Value Reference Range Interpretation Comments Monocytes (test code = Monocytes) 12.7 2.0-12.0 [place] 519362-02-20 06:12:00 Test Item Value Reference Range Interpretation Comments Eosinophils (test code = 0.2 See_Comment [A utomated message] The Eosinophils) system which ge nerated this result tra nsmitted reference range : <=4.0. The reference r patria was not used to int erpret this result as normal/abnormal . [place] 519362-02-20 06:12:00 Test Item Value Reference Range Interpretation Comments Basophils (test code = 0.2 See_Comment [Aut omated message] The Basophils) system which ge nerated this result tra nsmitted reference range : <=1.0. The reference r patria was not used to int erpret this result as normal/abnormal . [place] 519362-02-20 06:12:00 Test Item Value Reference Range Interpretation Comments Neutrophils # (test code = Neutrophils 7.6 1.5-8.1 #) [place] 519362-02-20 06:12:00 Test Item Value Reference Range Interpretation Comments Lymphocytes # (test code = Lymphocytes 0.7 1.0-5.5 #) [facility]RadzjweJMBVEDCNLH5230-13-50 06:12:00 Test Item Value Reference Range Interpretation Comments Monocytes # (test code 1.2 See_Comment [Aut omated message] The = Monocytes #) system which generated this result tra nsmitted reference range : <=0.8. The reference r patria was not used to int erpret this result as normal/abnormal . [facility] CenterAtwrotsSBIJRIUPNB0516-56-33 06:12:00 Test Item Value Reference Range Interpretation Comments WBC (test code = WBC) 9.5 3.7-10.4 [place] 519362-02-20 06:12:00 Test Item Value Reference Range Interpretation Comments RBC (test code = RBC) 3.24 4.20-5.40 [place] 519362-02-20 06:12:00 Test Item Value Reference Range Interpretation Comments Hgb (test code = Hgb) 9.7 12.0-16.0 [place] 519362-02-20 06:12:00 Test Item Value Reference Range Interpretation Comments Hct (test code = Hct) 28.8 36.0-48.0 [place] 519362-02-20 06:12:00 Test Item Value Reference Range Interpretation Comments MCV (test code = MCV) 89.0 80.0-98.0 [place] 519362-02-20 06:12:00 Test Item Value Reference Range Interpretation Comments MCH (test code = MCH) 30.1 pg 27.0-31.0 [place] 519362-02-20 06:12:00 Test Item Value Reference Range Interpretation Comments MCHC (test code = MCHC) 33.8 32.0-36.0 [place] [address]-02-20 06:12:00 Test Item Value Reference Range Interpretation Comments RDW (test code = RDW) 16.7 11.5-14.5 [place] 519362-02-20 06:12:00 Test Item Value Reference Range Interpretation Comments Platelet (test code = Platelet) 68 133-450 [place] 519362-02-20 06:12:00 Test Item Value Reference Range Interpretation Comments MPV (test code = MPV) 7.7 7.4-10.4 [facility]2022-02-20 06:12:00 Test Item Value Reference Range Interpretation Comments Magnesium Lvl (test code = Magnesium 1.7 1.8-2.4 Lvl) [facility]2022-02-20 06:12:00 Test Item Value Reference Range Interpretation Comments Phosphorus (test code = Phosphorus) 5.4 2.5-4.5 [place] 519362-02-20 06:12:00 Test Item Value Reference Range Interpretation Comments Segs (test code = Segs) 79.6 45.0-75.0 [place] 519362-02-20 06:12:00 Test Item Value Reference Range Interpretation Comments Lymphocytes (test code = Lymphocytes) 7.3 20.0-40.0 [place] 519362-02-20 06:12:00 Test Item Value Reference Range Interpretation Comments Monocytes (test code = Monocytes) 12.7 2.0-12.0 [place] 519362-02-20 06:12:00 Test Item Value Reference Range Interpretation Comments Eosinophils (test code = 0.2 See_Comment [A utomated message] The Eosinophils) system which ge nerated this result tra nsmitted reference range : <=4.0. The reference r patria was not used to int erpret this result as normal/abnormal . [place] 519362-02-20 06:12:00 Test Item Value Reference Range Interpretation Comments Basophils (test code = 0.2 See_Comment [Aut omated message] The Basophils) system which ge nerated this result tra nsmitted reference range : <=1.0. The reference r patria was not used to int erpret this result as normal/abnormal . [place] 519362-02-20 06:12:00 Test Item Value Reference Range Interpretation Comments Neutrophils # (test code = Neutrophils 7.6 1.5-8.1 #) [place] 519362-02-20 06:12:00 Test Item Value Reference Range Interpretation Comments Lymphocytes # (test code = Lymphocytes 0.7 1.0-5.5 #) [place] 519362-02-20 06:12:00 Test Item Value Reference Range Interpretation Comments Monocytes # (test code 1.2 See_Comment [Aut omated message] The = Monocytes #) system which generated this result tra nsmitted reference range : <=0.8. The reference r patria was not used to int erpret this result as normal/abnormal . [facility] CenterKbsxvzkOXVWLZCSZU7619-63-89 06:12:00 Test Item Value Reference Range Interpretation Comments WBC (test code = WBC) 9.5 3.7-10.4 [place] 519362-02-20 06:12:00 Test Item Value Reference Range Interpretation Comments RBC (test code = RBC) 3.24 4.20-5.40 [place] 519362-02-20 06:12:00 Test Item Value Reference Range Interpretation Comments Hgb (test code = Hgb) 9.7 12.0-16.0 [place] 519362-02-20 06:12:00 Test Item Value Reference Range Interpretation Comments Hct (test code = Hct) 28.8 36.0-48.0 [place] 519362-02-20 06:12:00 Test Item Value Reference Range Interpretation Comments MCV (test code = MCV) 89.0 80.0-98.0 [facility] CenterDwxdhbiWGVMGNBXKP4505-14-62 06:12:00 Test Item Value Reference Range Interpretation Comments MCH (test code = MCH) 30.1 pg 27.0-31.0 [facility] CenterEwcliszZETLXORFGF7064-34-77 06:12:00 Test Item Value Reference Range Interpretation Comments MCHC (test code = MCHC) 33.8 32.0-36.0 [facility] CenterIwefuriOPNPGKPDGG7770-99-56 06:12:00 Test Item Value Reference Range Interpretation Comments RDW (test code = RDW) 16.7 11.5-14.5 [place] 519362-02-20 06:12:00 Test Item Value Reference Range Interpretation Comments Platelet (test code = Platelet) 68 133-450 [facility] CenterWqgpcbrHPNAERKAJL5694-94-18 06:12:00 Test Item Value Reference Range Interpretation Comments MPV (test code = MPV) 7.7 7.4-10.4 [facility]2022-02-20 06:12:00 Test Item Value Reference Range Interpretation Comments Magnesium Lvl (test code = Magnesium 1.7 1.8-2.4 Lvl) [facility]2022-02-20 06:12:00 Test Item Value Reference Range Interpretation Comments Phosphorus (test code = Phosphorus) 5.4 2.5-4.5 [facility] CenterSklmhgeIRRKNZOIGK3650-37-97 06:12:00 Test Item Value Reference Range Interpretation Comments Segs (test code = Segs) 79.6 45.0-75.0 [facility] CenterUtnlwbgQWBAYAEMXW2538-59-38 06:12:00 Test Item Value Reference Range Interpretation Comments Lymphocytes (test code = Lymphocytes) 7.3 20.0-40.0 [facility] CenterLyunkxzSFERHKYDXH2591-83-62 06:12:00 Test Item Value Reference Range Interpretation Comments Monocytes (test code = Monocytes) 12.7 2.0-12.0 [facility] CenterOhfiqxyUTTPNUKWSG5933-28-37 06:12:00 Test Item Value Reference Range Interpretation Comments Eosinophils (test code = 0.2 See_Comment [A utomated message] The Eosinophils) system which ge nerated this result tra nsmitted reference range : <=4.0. The reference r patria was not used to int erpret this result as normal/abnormal . [facility] CenterLsfnmbnCMVPJUUTOT1626-60-83 06:12:00 Test Item Value Reference Range Interpretation Comments Basophils (test code = 0.2 See_Comment [Aut omated message] The Basophils) system which ge nerated this result tra nsmitted reference range : <=1.0. The reference r patria was not used to int erpret this result as normal/abnormal . [facility] CenterAucgrrqDXOHRAXPAP5447-30-38 06:12:00 Test Item Value Reference Range Interpretation Comments Neutrophils # (test code = Neutrophils 7.6 1.5-8.1 #) [facility] CenterHjkexjnQTAXGBIDLU7321-94-87 06:12:00 Test Item Value Reference Range Interpretation Comments Lymphocytes # (test code = Lymphocytes 0.7 1.0-5.5 #) [place] 519362-02-20 06:12:00 Test Item Value Reference Range Interpretation Comments Monocytes # (test code 1.2 See_Comment [Aut omated message] The = Monocytes #) system which generated this result tra nsmitted reference range : <=0.8. The reference r patria was not used to int erpret this result as normal/abnormal . [facility] CenterAjwrqzmVWZBTJKPOM6010-75-08 06:12:00 Test Item Value Reference Range Interpretation Comments WBC (test code = WBC) 9.5 3.7-10.4 [facility] CenterAigidjfWATYIJPKZC3893-93-08 06:12:00 Test Item Value Reference Range Interpretation Comments RBC (test code = RBC) 3.24 4.20-5.40 [facility] CenterJrprmoqBOJYFBSYAU4754-83-61 06:12:00 Test Item Value Reference Range Interpretation Comments Hgb (test code = Hgb) 9.7 12.0-16.0 [facility] CenterIkmefjsZPEJSQPRVV3982-57-42 06:12:00 Test Item Value Reference Range Interpretation Comments Hct (test code = Hct) 28.8 36.0-48.0 [facility] CenterDtluvutUSKGSJKZAD8475-46-44 06:12:00 Test Item Value Reference Range Interpretation Comments MCV (test code = MCV) 89.0 80.0-98.0 [facility] CenterJkeykwuTSPTRMYTTW6570-78-52 06:12:00 Test Item Value Reference Range Interpretation Comments MCH (test code = MCH) 30.1 pg 27.0-31.0 [facility] CenterZcdcgwuKJUPIAVZFK6013-11-05 06:12:00 Test Item Value Reference Range Interpretation Comments MCHC (test code = MCHC) 33.8 32.0-36.0 [facility] CenterEhkuewoONJAKUTQYV1132-73-67 06:12:00 Test Item Value Reference Range Interpretation Comments RDW (test code = RDW) 16.7 11.5-14.5 [facility] CenterFqbcrqoWOTXWZLPXY9050-82-82 06:12:00 Test Item Value Reference Range Interpretation Comments Platelet (test code = Platelet) 68 133-450 [facility] CenterRzusmxaCHEURTFQAS4146-11-54 06:12:00 Test Item Value Reference Range Interpretation Comments MPV (test code = MPV) 7.7 7.4-10.4 [facility] ZDLKK2052-27-41 06:12:00 Test Item Value Reference Range Interpretation Comments Magnesium Lvl (test code = Magnesium 1.7 1.8-2.4 Lvl) [facility] UYBPA4173-70-61 06:12:00 Test Item Value Reference Range Interpretation Comments Phosphorus (test code = Phosphorus) 5.4 2.5-4.5 [facility] CenterNczhnmmVEXDXDPAKS9794-09-33 06:12:00 Test Item Value Reference Range Interpretation Comments Segs (test code = Segs) 79.6 45.0-75.0 [facility] CenterOlwzuhiEFDMGXQMUO0881-92-71 06:12:00 Test Item Value Reference Range Interpretation Comments Lymphocytes (test code = Lymphocytes) 7.3 20.0-40.0 [facility] CenterXybfwhiWIEIRMACVD1971-49-35 06:12:00 Test Item Value Reference Range Interpretation Comments Monocytes (test code = Monocytes) 12.7 2.0-12.0 [facility] CenterOvqkkpzPWPQSMADSZ5055-66-51 06:12:00 Test Item Value Reference Range Interpretation Comments Eosinophils (test code = 0.2 See_Comment [A utomated message] The Eosinophils) system which ge nerated this result tra nsmitted reference range : <=4.0. The reference r patria was not used to int erpret this result as normal/abnormal . [facility] CenterPrwyvhnLSWVEBYCDE8397-01-45 06:12:00 Test Item Value Reference Range Interpretation Comments Basophils (test code = 0.2 See_Comment [Aut omated message] The Basophils) system which ge nerated this result tra nsmitted reference range : <=1.0. The reference r patria was not used to int erpret this result as normal/abnormal . [facility] CenterKifumkjJTEUABXZFX3434-70-46 06:12:00 Test Item Value Reference Range Interpretation Comments Neutrophils # (test code = Neutrophils 7.6 1.5-8.1 #) [facility] CenterUpeeeizVXSIVLIGVO2542-87-42 06:12:00 Test Item Value Reference Range Interpretation Comments Lymphocytes # (test code = Lymphocytes 0.7 1.0-5.5 #) [facility] CenterFraqibmOPZEWAGELW3513-47-70 06:12:00 Test Item Value Reference Range Interpretation Comments Monocytes # (test code 1.2 See_Comment [Aut omated message] The = Monocytes #) system which generated this result tra nsmitted reference range : <=0.8. The reference r patria was not used to int erpret this result as normal/abnormal . [facility] CenterVcngcnzUJCKJJRHEU5657-61-85 06:12:00 Test Item Value Reference Range Interpretation Comments WBC (test code = WBC) 9.5 3.7-10.4 [facility] CenterCqtrbwsIKNVHNVQWS4558-44-98 06:12:00 Test Item Value Reference Range Interpretation Comments RBC (test code = RBC) 3.24 4.20-5.40 [place] 519362-02-20 06:12:00 Test Item Value Reference Range Interpretation Comments Hgb (test code = Hgb) 9.7 12.0-16.0 [place] 519362-02-20 06:12:00 Test Item Value Reference Range Interpretation Comments Hct (test code = Hct) 28.8 36.0-48.0 [facility] CenterDqzgpxxPKWWQHZVCQ4994-67-06 06:12:00 Test Item Value Reference Range Interpretation Comments MCV (test code = MCV) 89.0 80.0-98.0 [facility] CenterXnbmzkdCIFFSKZMTP9134-23-67 06:12:00 Test Item Value Reference Range Interpretation Comments MCH (test code = MCH) 30.1 pg 27.0-31.0 [facility] CenterRgqhnmkTSQZKCQRVF0971-75-92 06:12:00 Test Item Value Reference Range Interpretation Comments MCHC (test code = MCHC) 33.8 32.0-36.0 [facility] CenterToptavhBOPVSZSRFF2021-42-78 06:12:00 Test Item Value Reference Range Interpretation Comments RDW (test code = RDW) 16.7 11.5-14.5 [place] 519362-02-20 06:12:00 Test Item Value Reference Range Interpretation Comments Platelet (test code = Platelet) 68 133-450 [facility] CenterNmfwcvwLQQSATIYCF4984-21-71 06:12:00 Test Item Value Reference Range Interpretation Comments MPV (test code = MPV) 7.7 7.4-10.4 [facility] SCWJH2798-23-08 06:12:00 Test Item Value Reference Range Interpretation Comments Magnesium Lvl (test code = Magnesium 1.7 1.8-2.4 Lvl) [facility] ENBRF0320-64-31 06:12:00 Test Item Value Reference Range Interpretation Comments Phosphorus (test code = Phosphorus) 5.4 2.5-4.5 [facility] CenterIbarnutTBLLLJJEKT5702-22-78 06:12:00 Test Item Value Reference Range Interpretation Comments Segs (test code = Segs) 79.6 45.0-75.0 [place] 519362-02-20 06:12:00 Test Item Value Reference Range Interpretation Comments Lymphocytes (test code = Lymphocytes) 7.3 20.0-40.0 [facility] CenterWfzpgzhEZCIMKRJHM8743-20-62 06:12:00 Test Item Value Reference Range Interpretation Comments Monocytes (test code = Monocytes) 12.7 2.0-12.0 [facility] CenterFcwbngcSEJQJQBVRH3334-10-86 06:12:00 Test Item Value Reference Range Interpretation Comments Eosinophils (test code = 0.2 See_Comment [A utomated message] The Eosinophils) system which ge nerated this result tra nsmitted reference range : <=4.0. The reference r patria was not used to int erpret this result as normal/abnormal . [facility] CenterWkagorzQGQYEXHKDL1667-76-67 06:12:00 Test Item Value Reference Range Interpretation Comments Basophils (test code = 0.2 See_Comment [Aut omated message] The Basophils) system which ge nerated this result tra nsmitted reference range : <=1.0. The reference r patria was not used to int erpret this result as normal/abnormal . [facility] CenterPuqkufyXAVKZNSLWD0522-59-08 06:12:00 Test Item Value Reference Range Interpretation Comments Neutrophils # (test code = Neutrophils 7.6 1.5-8.1 #) [facility] CenterGnnyawxLJRZEPLYOD3474-26-54 06:12:00 Test Item Value Reference Range Interpretation Comments Lymphocytes # (test code = Lymphocytes 0.7 1.0-5.5 #) [facility] CenterRrtconyNHIVNVUXRN5768-82-90 06:12:00 Test Item Value Reference Range Interpretation Comments Monocytes # (test code 1.2 See_Comment [Aut omated message] The = Monocytes #) system which generated this result tra nsmitted reference range : <=0.8. The reference r patria was not used to int erpret this result as normal/abnormal . [facility]EqopnagANVLLGRPYH3603-48-11 06:12:00 Test Item Value Reference Range Interpretation Comments WBC (test code = WBC) 9.5 3.7-10.4 [place] 519362-02-20 06:12:00 Test Item Value Reference Range Interpretation Comments RBC (test code = RBC) 3.24 4.20-5.40 [place] 519362-02-20 06:12:00 Test Item Value Reference Range Interpretation Comments Hgb (test code = Hgb) 9.7 12.0-16.0 [place] 519362-02-20 06:12:00 Test Item Value Reference Range Interpretation Comments Hct (test code = Hct) 28.8 36.0-48.0 [facility]AbcxrjkVYJHLYBBXK5109-18-05 06:12:00 Test Item Value Reference Range Interpretation Comments MCV (test code = MCV) 89.0 80.0-98.0 [facility]HkucwgdSTLGOZAGEX0811-42-40 06:12:00 Test Item Value Reference Range Interpretation Comments MCH (test code = MCH) 30.1 pg 27.0-31.0 [facility]YcislgkAUJXGIRXXW5894-53-40 06:12:00 Test Item Value Reference Range Interpretation Comments MCHC (test code = MCHC) 33.8 32.0-36.0 [facility] CenterPkvdyayQZRDSXBUSV6919-35-40 06:12:00 Test Item Value Reference Range Interpretation Comments RDW (test code = RDW) 16.7 11.5-14.5 [facility] CenterVpuidosPDGJXUAUQH1169-74-80 06:12:00 Test Item Value Reference Range Interpretation Comments Platelet (test code = Platelet) 68 133-450 [facility] CenterTvillzeUIXNSJUKLT7687-31-91 06:12:00 Test Item Value Reference Range Interpretation Comments MPV (test code = MPV) 7.7 7.4-10.4 [facility] [id number] 06:12:00 Test Item Value Reference Range Interpretation Comments Magnesium Lvl (test code = Magnesium 1.7 1.8-2.4 Lvl) [facility] [id number] 06:12:00 Test Item Value Reference Range Interpretation Comments Phosphorus (test code = Phosphorus) 5.4 2.5-4.5 [facility] CenterWmdpdfdOHHQMTDCQC7845-33-43 06:12:00 Test Item Value Reference Range Interpretation Comments Segs (test code = Segs) 79.6 45.0-75.0 [facility] CenterTfnjieuQLAZUQOTVM4489-57-81 06:12:00 Test Item Value Reference Range Interpretation Comments Lymphocytes (test code = Lymphocytes) 7.3 20.0-40.0 [facility]YjvxrgpVSHJDRQJXG6871-07-25 06:12:00 Test Item Value Reference Range Interpretation Comments Monocytes (test code = Monocytes) 12.7 2.0-12.0 [facility] CenterYqrxqkhWYWKHUIADW7662-31-97 06:12:00 Test Item Value Reference Range Interpretation Comments Eosinophils (test code = 0.2 See_Comment [A utomated message] The Eosinophils) system which ge nerated this result tra nsmitted reference range : <=4.0. The reference r patria was not used to int erpret this result as normal/abnormal . [facility] CenterRdzjjjsHOAVISAJYL6967-13-22 06:12:00 Test Item Value Reference Range Interpretation Comments Basophils (test code = 0.2 See_Comment [Aut omated message] The Basophils) system which ge nerated this result tra nsmitted reference range : <=1.0. The reference r patria was not used to int erpret this result as normal/abnormal . [facility] CenterRbqvhguBOAKRUGSSL9299-93-31 06:12:00 Test Item Value Reference Range Interpretation Comments Neutrophils # (test code = Neutrophils 7.6 1.5-8.1 #) [facility] CenterIflsaytKRRWBCQFCA1363-36-29 06:12:00 Test Item Value Reference Range Interpretation Comments Lymphocytes # (test code = Lymphocytes 0.7 1.0-5.5 #) [facility] CenterUicihqxBPCBEJFJUV9890-31-80 06:12:00 Test Item Value Reference Range Interpretation Comments Monocytes # (test code 1.2 See_Comment [Aut omated message] The = Monocytes #) system which generated this result tra nsmitted reference range : <=0.8. The reference r patria was not used to int erpret this result as normal/abnormal . [facility] CenterFytjtofYEKKNERLYW4626-01-26 06:12:00 Test Item Value Reference Range Interpretation Comments WBC (test code = WBC) 9.5 3.7-10.4 [facility] CenterDkhzmwcKWRJTTICKB9866-06-41 06:12:00 Test Item Value Reference Range Interpretation Comments RBC (test code = RBC) 3.24 4.20-5.40 [place] 519362-02-20 06:12:00 Test Item Value Reference Range Interpretation Comments Hgb (test code = Hgb) 9.7 12.0-16.0 [place] 519362-02-20 06:12:00 Test Item Value Reference Range Interpretation Comments Hct (test code = Hct) 28.8 36.0-48.0 [place] 519362-02-20 06:12:00 Test Item Value Reference Range Interpretation Comments MCV (test code = MCV) 89.0 80.0-98.0 [place] 519362-02-20 06:12:00 Test Item Value Reference Range Interpretation Comments MCH (test code = MCH) 30.1 pg 27.0-31.0 [facility] CenterPyupbyeRKSEVHLTAU1158-83-27 06:12:00 Test Item Value Reference Range Interpretation Comments MCHC (test code = MCHC) 33.8 32.0-36.0 [facility] CenterGeoxqdtLHOPHWCZVP0506-32-50 06:12:00 Test Item Value Reference Range Interpretation Comments RDW (test code = RDW) 16.7 11.5-14.5 [facility] CenterKyjcadwZWWGLEYWBM0071-39-23 06:12:00 Test Item Value Reference Range Interpretation Comments Platelet (test code = Platelet) 68 133-450 [facility] CenterDjhdqglLMEROOUTIL5528-62-38 06:12:00 Test Item Value Reference Range Interpretation Comments MPV (test code = MPV) 7.7 7.4-10.4 [facility]2022-02-20 06:12:00 Test Item Value Reference Range Interpretation Comments Magnesium Lvl (test code = Magnesium 1.7 1.8-2.4 Lvl) [facility]2022-02-20 06:12:00 Test Item Value Reference Range Interpretation Comments Phosphorus (test code = Phosphorus) 5.4 2.5-4.5 [facility] CenterTvidhpcJXFUUHEQBE4172-16-74 06:12:00 Test Item Value Reference Range Interpretation Comments Segs (test code = Segs) 79.6 45.0-75.0 [facility] CenterQtbnznrKMHMHNHZRN3096-03-25 06:12:00 Test Item Value Reference Range Interpretation Comments Lymphocytes (test code = Lymphocytes) 7.3 20.0-40.0 [facility] CenterMbgpkdmSCINQGKXAR4603-76-87 06:12:00 Test Item Value Reference Range Interpretation Comments Monocytes (test code = Monocytes) 12.7 2.0-12.0 [place] 519362-02-20 06:12:00 Test Item Value Reference Range Interpretation Comments Eosinophils (test code = 0.2 See_Comment [A utomated message] The Eosinophils) system which ge nerated this result tra nsmitted reference range : <=4.0. The reference r patria was not used to int erpret this result as normal/abnormal . [facility] CenterOljkiqhZVKAGFCUQI7931-47-04 06:12:00 Test Item Value Reference Range Interpretation Comments Basophils (test code = 0.2 See_Comment [Aut omated message] The Basophils) system which ge nerated this result tra nsmitted reference range : <=1.0. The reference r patria was not used to int erpret this result as normal/abnormal . [facility] CenterEorbtcbLIAYNVCXGY5259-17-93 06:12:00 Test Item Value Reference Range Interpretation Comments Neutrophils # (test code = Neutrophils 7.6 1.5-8.1 #) [facility] CenterLpnzftyRWOYDBMFCJ4331-96-72 06:12:00 Test Item Value Reference Range Interpretation Comments Lymphocytes # (test code = Lymphocytes 0.7 1.0-5.5 #) [facility] CenterUezklgjRPQTPNZKJT5831-92-02 06:12:00 Test Item Value Reference Range Interpretation Comments Monocytes # (test code 1.2 See_Comment [Aut omated message] The = Monocytes #) system which generated this result tra nsmitted reference range : <=0.8. The reference r patria was not used to int erpret this result as normal/abnormal . [facility] CenterHltnxbkZLUNKTMWGP5032-23-61 06:12:00 Test Item Value Reference Range Interpretation Comments WBC (test code = WBC) 9.5 3.7-10.4 [place] 519362-02-20 06:12:00 Test Item Value Reference Range Interpretation Comments RBC (test code = RBC) 3.24 4.20-5.40 [place] 519362-02-20 06:12:00 Test Item Value Reference Range Interpretation Comments Hgb (test code = Hgb) 9.7 12.0-16.0 [place] 519362-02-20 06:12:00 Test Item Value Reference Range Interpretation Comments Hct (test code = Hct) 28.8 36.0-48.0 [place] 519362-02-20 06:12:00 Test Item Value Reference Range Interpretation Comments MCV (test code = MCV) 89.0 80.0-98.0 [facility] CenterHgbrhmcVMKAKSZFPD2036-85-96 06:12:00 Test Item Value Reference Range Interpretation Comments MCH (test code = MCH) 30.1 pg 27.0-31.0 [place] 519362-02-20 06:12:00 Test Item Value Reference Range Interpretation Comments MCHC (test code = MCHC) 33.8 32.0-36.0 [facility] CenterJpatidpPQNXYDAYOB7063-66-41 06:12:00 Test Item Value Reference Range Interpretation Comments RDW (test code = RDW) 16.7 11.5-14.5 [facility] CenterIyrtlbhOVDVWAVFEW4369-86-96 06:12:00 Test Item Value Reference Range Interpretation Comments Platelet (test code = Platelet) 68 133-450 [facility] CenterZcydmhhOYIQJZEGXU6949-81-30 06:12:00 Test Item Value Reference Range Interpretation Comments MPV (test code = MPV) 7.7 7.4-10.4 [facility]2022-02-20 06:12:00 Test Item Value Reference Range Interpretation Comments Magnesium Lvl (test code = Magnesium 1.7 1.8-2.4 Lvl) [facility]2022-02-20 06:12:00 Test Item Value Reference Range Interpretation Comments Phosphorus (test code = Phosphorus) 5.4 2.5-4.5 [facility] CenterTdptygzFHTBNQQLVT4224-67-13 06:12:00 Test Item Value Reference Range Interpretation Comments Segs (test code = Segs) 79.6 45.0-75.0 [facility] CenterQxewnjbJBGOHPUTWD9658-64-13 06:12:00 Test Item Value Reference Range Interpretation Comments Lymphocytes (test code = Lymphocytes) 7.3 20.0-40.0 [facility] CenterJgfbqcbCUVRBGVCHF3047-82-68 06:12:00 Test Item Value Reference Range Interpretation Comments Monocytes (test code = Monocytes) 12.7 2.0-12.0 [facility] CenterYdwssiaAVTMYEZFXU3396-96-99 06:12:00 Test Item Value Reference Range Interpretation Comments Eosinophils (test code = 0.2 See_Comment [A utomated message] The Eosinophils) system which ge nerated this result tra nsmitted reference range : <=4.0. The reference r patria was not used to int erpret this result as normal/abnormal . [facility] CenterBpiyxuxEOVUVUNGPE0359-39-05 06:12:00 Test Item Value Reference Range Interpretation Comments Basophils (test code = 0.2 See_Comment [Aut omated message] The Basophils) system which ge nerated this result tra nsmitted reference range : <=1.0. The reference r patria was not used to int erpret this result as normal/abnormal . [place] 519362-02-20 06:12:00 Test Item Value Reference Range Interpretation Comments Neutrophils # (test code = Neutrophils 7.6 1.5-8.1 #) [place] 519362-02-20 06:12:00 Test Item Value Reference Range Interpretation Comments Lymphocytes # (test code = Lymphocytes 0.7 1.0-5.5 #) [place] 519362-02-20 06:12:00 Test Item Value Reference Range Interpretation Comments Monocytes # (test code 1.2 See_Comment [Aut omated message] The = Monocytes #) system which generated this result tra nsmitted reference range : <=0.8. The reference r patria was not used to int erpret this result as normal/abnormal . [place] 519362-02-20 06:12:00 Test Item Value Reference Range Interpretation Comments WBC (test code = WBC) 9.5 3.7-10.4 [place] 519362-02-20 06:12:00 Test Item Value Reference Range Interpretation Comments RBC (test code = RBC) 3.24 4.20-5.40 [place] 519362-02-20 06:12:00 Test Item Value Reference Range Interpretation Comments Hgb (test code = Hgb) 9.7 12.0-16.0 [place] 519362-02-20 06:12:00 Test Item Value Reference Range Interpretation Comments Hct (test code = Hct) 28.8 36.0-48.0 [place] 519362-02-20 06:12:00 Test Item Value Reference Range Interpretation Comments MCV (test code = MCV) 89.0 80.0-98.0 [place] 519362-02-20 06:12:00 Test Item Value Reference Range Interpretation Comments MCH (test code = MCH) 30.1 pg 27.0-31.0 [place] [address]-02-20 06:12:00 Test Item Value Reference Range Interpretation Comments MCHC (test code = MCHC) 33.8 32.0-36.0 [place] [address]-02-20 06:12:00 Test Item Value Reference Range Interpretation Comments RDW (test code = RDW) 16.7 11.5-14.5 [place] 519362-02-20 06:12:00 Test Item Value Reference Range Interpretation Comments Platelet (test code = Platelet) 68 133-450 [place] 519362-02-20 06:12:00 Test Item Value Reference Range Interpretation Comments MPV (test code = MPV) 7.7 7.4-10.4 [place] 542562-02-20 06:12:00 Test Item Value Reference Range Interpretation Comments Magnesium Lvl (test code = Magnesium 1.7 1.8-2.4 Lvl) [facility]2022-02-20 06:12:00 Test Item Value Reference Range Interpretation Comments Phosphorus (test code = Phosphorus) 5.4 2.5-4.5 [place] 519362-02-20 06:12:00 Test Item Value Reference Range Interpretation Comments Segs (test code = Segs) 79.6 45.0-75.0 [place] 519362-02-20 06:12:00 Test Item Value Reference Range Interpretation Comments Lymphocytes (test code = Lymphocytes) 7.3 20.0-40.0 [place] 519362-02-20 06:12:00 Test Item Value Reference Range Interpretation Comments Monocytes (test code = Monocytes) 12.7 2.0-12.0 [place] 519362-02-20 06:12:00 Test Item Value Reference Range Interpretation Comments Eosinophils (test code = 0.2 See_Comment [A utomated message] The Eosinophils) system which ge nerated this result tra nsmitted reference range : <=4.0. The reference r patria was not used to int erpret this result as normal/abnormal . [place] 519362-02-20 06:12:00 Test Item Value Reference Range Interpretation Comments Basophils (test code = 0.2 See_Comment [Aut omated message] The Basophils) system which ge nerated this result tra nsmitted reference range : <=1.0. The reference r patria was not used to int erpret this result as normal/abnormal . [place] 519362-02-20 06:12:00 Test Item Value Reference Range Interpretation Comments Neutrophils # (test code = Neutrophils 7.6 1.5-8.1 #) [place] 519362-02-20 06:12:00 Test Item Value Reference Range Interpretation Comments Lymphocytes # (test code = Lymphocytes 0.7 1.0-5.5 #) [facility] CenterSamaizbFTGEKLLKMJ6548-40-61 06:12:00 Test Item Value Reference Range Interpretation Comments Monocytes # (test code 1.2 See_Comment [Aut omated message] The = Monocytes #) system which generated this result tra nsmitted reference range : <=0.8. The reference r patria was not used to int erpret this result as normal/abnormal . [facility] CenterYpandqfHDRWSBHCEU1141-22-74 06:12:00 Test Item Value Reference Range Interpretation Comments WBC (test code = WBC) 9.5 3.7-10.4 [place] 519362-02-20 06:12:00 Test Item Value Reference Range Interpretation Comments RBC (test code = RBC) 3.24 4.20-5.40 [place] 519362-02-20 06:12:00 Test Item Value Reference Range Interpretation Comments Hgb (test code = Hgb) 9.7 12.0-16.0 [place] 519362-02-20 06:12:00 Test Item Value Reference Range Interpretation Comments Hct (test code = Hct) 28.8 36.0-48.0 [place] [address]-02-20 06:12:00 Test Item Value Reference Range Interpretation Comments MCV (test code = MCV) 89.0 80.0-98.0 [place] 519362-02-20 06:12:00 Test Item Value Reference Range Interpretation Comments MCH (test code = MCH) 30.1 pg 27.0-31.0 [place] 519362-02-20 06:12:00 Test Item Value Reference Range Interpretation Comments MCHC (test code = MCHC) 33.8 32.0-36.0 [place] 519362-02-20 06:12:00 Test Item Value Reference Range Interpretation Comments RDW (test code = RDW) 16.7 11.5-14.5 [place] 519362-02-20 06:12:00 Test Item Value Reference Range Interpretation Comments Platelet (test code = Platelet) 68 133-450 [place] 519362-02-20 06:12:00 Test Item Value Reference Range Interpretation Comments MPV (test code = MPV) 7.7 7.4-10.4 [place] 542562-02-20 06:12:00 Test Item Value Reference Range Interpretation Comments Magnesium Lvl (test code = Magnesium 1.7 1.8-2.4 Lvl) [facility]2022-02-20 06:12:00 Test Item Value Reference Range Interpretation Comments Phosphorus (test code = Phosphorus) 5.4 2.5-4.5 [place] 519362-02-20 06:12:00 Test Item Value Reference Range Interpretation Comments Segs (test code = Segs) 79.6 45.0-75.0 [place] 519362-02-20 06:12:00 Test Item Value Reference Range Interpretation Comments Lymphocytes (test code = Lymphocytes) 7.3 20.0-40.0 [place] 519362-02-20 06:12:00 Test Item Value Reference Range Interpretation Comments Monocytes (test code = Monocytes) 12.7 2.0-12.0 [place] 519362-02-20 06:12:00 Test Item Value Reference Range Interpretation Comments Eosinophils (test code = 0.2 See_Comment [A utomated message] The Eosinophils) system which ge nerated this result tra nsmitted reference range : <=4.0. The reference r patria was not used to int erpret this result as normal/abnormal . [place] 519362-02-20 06:12:00 Test Item Value Reference Range Interpretation Comments Basophils (test code = 0.2 See_Comment [Aut omated message] The Basophils) system which ge nerated this result tra nsmitted reference range : <=1.0. The reference r patria was not used to int erpret this result as normal/abnormal . [place] 519362-02-20 06:12:00 Test Item Value Reference Range Interpretation Comments Neutrophils # (test code = Neutrophils 7.6 1.5-8.1 #) [place] 519362-02-20 06:12:00 Test Item Value Reference Range Interpretation Comments Lymphocytes # (test code = Lymphocytes 0.7 1.0-5.5 #) [place] 519362-02-20 06:12:00 Test Item Value Reference Range Interpretation Comments Monocytes # (test code 1.2 See_Comment [Aut omated message] The = Monocytes #) system which generated this result tra nsmitted reference range : <=0.8. The reference r patria was not used to int erpret this result as normal/abnormal . [facility] CenterCvackfrCCZKIVGWVK1379-58-60 06:12:00 Test Item Value Reference Range Interpretation Comments WBC (test code = WBC) 9.5 3.7-10.4 [place] 519362-02-20 06:12:00 Test Item Value Reference Range Interpretation Comments RBC (test code = RBC) 3.24 4.20-5.40 [place] 519362-02-20 06:12:00 Test Item Value Reference Range Interpretation Comments Hgb (test code = Hgb) 9.7 12.0-16.0 [place] 519362-02-20 06:12:00 Test Item Value Reference Range Interpretation Comments Hct (test code = Hct) 28.8 36.0-48.0 [place] 519362-02-20 06:12:00 Test Item Value Reference Range Interpretation Comments MCV (test code = MCV) 89.0 80.0-98.0 [place] 519362-02-20 06:12:00 Test Item Value Reference Range Interpretation Comments MCH (test code = MCH) 30.1 pg 27.0-31.0 [facility]YdcwacnGAUDTXNBVY8093-39-03 06:12:00 Test Item Value Reference Range Interpretation Comments MCHC (test code = MCHC) 33.8 32.0-36.0 [facility] CenterMzdcymtZVMDXIZUBA9608-59-28 06:12:00 Test Item Value Reference Range Interpretation Comments RDW (test code = RDW) 16.7 11.5-14.5 [place] 519362-02-20 06:12:00 Test Item Value Reference Range Interpretation Comments Platelet (test code = Platelet) 68 133-450 [facility] CenterMzyrsvxOTGEMYGTWV2128-71-34 06:12:00 Test Item Value Reference Range Interpretation Comments MPV (test code = MPV) 7.7 7.4-10.4 [facility]2022-02-20 06:12:00 Test Item Value Reference Range Interpretation Comments Magnesium Lvl (test code = Magnesium 1.7 1.8-2.4 Lvl) [facility]2022-02-20 06:12:00 Test Item Value Reference Range Interpretation Comments Phosphorus (test code = Phosphorus) 5.4 2.5-4.5 [facility] CenterOdhbnnsNHLRVJDCJT6558-46-45 06:12:00 Test Item Value Reference Range Interpretation Comments Segs (test code = Segs) 79.6 45.0-75.0 [facility] CenterRywfxbdDBCGXWNGRR2554-74-09 06:12:00 Test Item Value Reference Range Interpretation Comments Lymphocytes (test code = Lymphocytes) 7.3 20.0-40.0 [facility] CenterZvfmhczUXPGQAGVMF6898-51-19 06:12:00 Test Item Value Reference Range Interpretation Comments Monocytes (test code = Monocytes) 12.7 2.0-12.0 [facility] CenterBeszormBWWOJVCPRA5698-54-40 06:12:00 Test Item Value Reference Range Interpretation Comments Eosinophils (test code = 0.2 See_Comment [A utomated message] The Eosinophils) system which ge nerated this result tra nsmitted reference range : <=4.0. The reference r patria was not used to int erpret this result as normal/abnormal . [facility] CenterRvtyustYLWKHMYBEP0438-89-44 06:12:00 Test Item Value Reference Range Interpretation Comments Basophils (test code = 0.2 See_Comment [Aut omated message] The Basophils) system which ge nerated this result tra nsmitted reference range : <=1.0. The reference r patria was not used to int erpret this result as normal/abnormal . [facility] CenterMaqytebITNUJBBTEF5729-72-83 06:12:00 Test Item Value Reference Range Interpretation Comments Neutrophils # (test code = Neutrophils 7.6 1.5-8.1 #) [facility] CenterUesekgfIQQTTNGSMK0788-50-54 06:12:00 Test Item Value Reference Range Interpretation Comments Lymphocytes # (test code = Lymphocytes 0.7 1.0-5.5 #) [facility] CenterZdomjbqFEAMKAMZRL8933-02-61 06:12:00 Test Item Value Reference Range Interpretation Comments Monocytes # (test code 1.2 See_Comment [Aut omated message] The = Monocytes #) system which generated this result tra nsmitted reference range : <=0.8. The reference r patria was not used to int erpret this result as normal/abnormal . [facility] CenterDezsfknJXRCQAFUYT7239-86-44 06:12:00 Test Item Value Reference Range Interpretation Comments WBC (test code = WBC) 9.5 3.7-10.4 [facility] CenterQcoxxwfPHMUYZUJRK9074-47-51 06:12:00 Test Item Value Reference Range Interpretation Comments RBC (test code = RBC) 3.24 4.20-5.40 [facility] CenterJokeyzlMWMKWURAXE2527-57-91 06:12:00 Test Item Value Reference Range Interpretation Comments Hgb (test code = Hgb) 9.7 12.0-16.0 [facility] CenterBisyupdGVJEUFXLZJ8856-91-49 06:12:00 Test Item Value Reference Range Interpretation Comments Hct (test code = Hct) 28.8 36.0-48.0 [facility] CenterGztsihiCPAZOKESIW1368-07-10 06:12:00 Test Item Value Reference Range Interpretation Comments MCV (test code = MCV) 89.0 80.0-98.0 [facility] CenterSxlzdufMJRNAGWCWD0578-53-04 06:12:00 Test Item Value Reference Range Interpretation Comments MCH (test code = MCH) 30.1 pg 27.0-31.0 [facility] CenterLrzlufmRVIWVQOYHA5301-88-56 06:12:00 Test Item Value Reference Range Interpretation Comments MCHC (test code = MCHC) 33.8 32.0-36.0 [facility] CenterQlinrtbWRPAOUNKRR9244-74-91 06:12:00 Test Item Value Reference Range Interpretation Comments RDW (test code = RDW) 16.7 11.5-14.5 [facility] CenterLzqnjrdVHKRTEQCNV3647-76-24 06:12:00 Test Item Value Reference Range Interpretation Comments Platelet (test code = Platelet) 68 133-450 [facility] CenterQxkvmwfXJVVNEYDJG2130-21-87 06:12:00 Test Item Value Reference Range Interpretation Comments MPV (test code = MPV) 7.7 7.4-10.4 [facility] [employer] [facility] [id number] 21:51:00 Test Item Value Reference Range Interpretation Comments FFP product (test code Product available = FFP product) (12/30/21 3:51 PM) [facility] [id number] 21:51:00 Test Item Value Reference Range Interpretation Comments RBC product (test code Product available = RBC product) (12/30/21 3:51 PM) [facility] [id number] 21:51:00 Test Item Value Reference Range Interpretation Comments FFP product (test code Product available = FFP product) (12/30/21 3:51 PM) [facility] [id number] 21:51:00 Test Item Value Reference Range Interpretation Comments RBC product (test code Product available = RBC product) (12/30/21 3:51 PM) [facility] [id number] 21:51:00 Test Item Value Reference Range Interpretation Comments FFP product (test code Product available = FFP product) (12/30/21 3:51 PM) [facility] [id number] 21:51:00 Test Item Value Reference Range Interpretation Comments RBC product (test code Product available = RBC product) (12/30/21 3:51 PM) [facility] [id number] 21:51:00 Test Item Value Reference Range Interpretation Comments FFP product (test code Product available = FFP product) (12/30/21 3:51 PM) [facility] [id number] 21:51:00 Test Item Value Reference Range Interpretation Comments RBC product (test code Product available = RBC product) (12/30/21 3:51 PM) [facility] [id number] 21:51:00 Test Item Value Reference Range Interpretation Comments FFP product (test code Product available = FFP product) (12/30/21 3:51 PM) [facility] [id number] 21:51:00 Test Item Value Reference Range Interpretation Comments RBC product (test code Product available = RBC product) (12/30/21 3:51 PM) [facility] [id number] 21:51:00 Test Item Value Reference Range Interpretation Comments FFP product (test code Product available = FFP product) (12/30/21 3:51 PM) [facility] [id number] 21:51:00 Test Item Value Reference Range Interpretation Comments RBC product (test code Product available = RBC product) (12/30/21 3:51 PM) [facility] [id number] 21:51:00 Test Item Value Reference Range Interpretation Comments FFP product (test code Product available = FFP product) (12/30/21 3:51 PM) [facility] [id number] 21:51:00 Test Item Value Reference Range Interpretation Comments RBC product (test code Product available = RBC product) (12/30/21 3:51 PM) [facility] [id number] 21:51:00 Test Item Value Reference Range Interpretation Comments FFP product (test code Product available = FFP product) (12/30/21 3:51 PM) [facility] [id number] 21:51:00 Test Item Value Reference Range Interpretation Comments RBC product (test code Product available = RBC product) (12/30/21 3:51 PM) [facility] [id number] 21:51:00 Test Item Value Reference Range Interpretation Comments FFP product (test code Product available = FFP product) (12/30/21 3:51 PM) [facility] [id number] 21:51:00 Test Item Value Reference Range Interpretation Comments RBC product (test code Product available = RBC product) (12/30/21 3:51 PM) [facility] [id number] 21:51:00 Test Item Value Reference Range Interpretation Comments FFP product (test code Product available = FFP product) (12/30/21 3:51 PM) [facility] [id number] 21:51:00 Test Item Value Reference Range Interpretation Comments RBC product (test code Product available = RBC product) (12/30/21 3:51 PM) [facility] [id number] 21:51:00 Test Item Value Reference Range Interpretation Comments FFP product (test code Product available = FFP product) (12/30/21 3:51 PM) [facility] [id number] 21:51:00 Test Item Value Reference Range Interpretation Comments RBC product (test code Product available = RBC product) (12/30/21 3:51 PM) [facility] [id number] 21:51:00 Test Item Value Reference Range Interpretation Comments FFP product (test code Product available = FFP product) (12/30/21 3:51 PM) [facility] [id number] 21:51:00 Test Item Value Reference Range Interpretation Comments RBC product (test code Product available = RBC product) (12/30/21 3:51 PM) [place] 542562-02-19 12:46:00 Test Item Value Reference Range Interpretation Comments Glucose Lvl (test code = Glucose Lvl) 101 70-99 [place] 542562-02-19 12:46:00 Test Item Value Reference Range Interpretation Comments BUN (test code = BUN) 49 7-22 [place] 542562-02-19 12:46:00 Test Item Value Reference Range Interpretation Comments Creatinine Lvl (test code = Creatinine 1.80 0.50-1.40 Lvl) [place] 542562-02-19 12:46:00 Test Item Value Reference Range Interpretation Comments Sodium Lvl (test code = Sodium Lvl) 139 135-145 [place] 542562-02-19 12:46:00 Test Item Value Reference Range Interpretation Comments Potassium Lvl (test code = Potassium 5.3 3.5-5.1 Lvl) [place] 542562-02-19 12:46:00 Test Item Value Reference Range Interpretation Comments Chloride Lvl (test code = Chloride Lvl) 110 95-109 [place] 542562-02-19 12:46:00 Test Item Value Reference Range Interpretation Comments CO2 (test code = CO2) 21 24-32 [place] 542562-02-19 12:46:00 Test Item Value Reference Range Interpretation Comments Calcium Lvl (test code = Calcium Lvl) 8.5 8.5-10.5 [place] 542562-02-19 12:46:00 Test Item Value Reference Range Interpretation Comments AGAP (test code = AGAP) 13.3 10.0-20.0 [facility]2022-02-19 12:46:00 Test Item Value Reference Range Interpretation Comments eGFR (test code = eGFR) 26 [place] 519712-02-19 12:46:00 Test Item Value Reference Range Interpretation Comments Trig (test code = Trig) 57 [place] 519712-02-19 12:46:00 Test Item Value Reference Range Interpretation Comments Chol (test code = Chol) 123 [place] 519712-02-19 12:46:00 Test Item Value Reference Range Interpretation Comments HDL (test code = HDL) 59 [place] 519712-02-19 12:46:00 Test Item Value Reference Range Interpretation Comments CHD Risk (test code = CHD Risk) 2.08 1 3.90-5.80 [facility]40[facility] 12:46:00 Test Item Value Reference Range Interpretation Comments LDL (Calculated) (test code = LDL 53 (Calculated)) [id number] 12:46:00 Test Item Value Reference Range Interpretation Comments VLDL (test code = VLDL) 11 1 [facility] [id number] 12:46:00 Test Item Value Reference Range Interpretation Comments Hgb A1C (test code = Hgb A1C) 5.3 [facility] [id number] 12:46:00 Test Item Value Reference Range Interpretation Comments Glucose Lvl (test code = Glucose Lvl) 101 70-99 [facility]2022-02-19 12:46:00 Test Item Value Reference Range Interpretation Comments BUN (test code = BUN) 49 7-22 [facility]2022-02-19 12:46:00 Test Item Value Reference Range Interpretation Comments Creatinine Lvl (test code = Creatinine 1.80 0.50-1.40 Lvl) [facility]2022-02-19 12:46:00 Test Item Value Reference Range Interpretation Comments Sodium Lvl (test code = Sodium Lvl) 139 135-145 [facility]2022-02-19 12:46:00 Test Item Value Reference Range Interpretation Comments Potassium Lvl (test code = Potassium 5.3 3.5-5.1 Lvl) [facility]2022-02-19 12:46:00 Test Item Value Reference Range Interpretation Comments Chloride Lvl (test code = Chloride Lvl) 110 95-109 [facility]2022-02-19 12:46:00 Test Item Value Reference Range Interpretation Comments CO2 (test code = CO2) 21 24-32 [facility]2022-02-19 12:46:00 Test Item Value Reference Range Interpretation Comments Calcium Lvl (test code = Calcium Lvl) 8.5 8.5-10.5 [facility]2022-02-19 12:46:00 Test Item Value Reference Range Interpretation Comments AGAP (test code = AGAP) 13.3 10.0-20.0 [facility]2022-02-19 12:46:00 Test Item Value Reference Range Interpretation Comments eGFR (test code = eGFR) 26 [id number] 12:46:00 Test Item Value Reference Range Interpretation Comments Trig (test code = Trig) 57 [facility] [id number] 12:46:00 Test Item Value Reference Range Interpretation Comments Chol (test code = Chol) 123 [facility] HospitalNuavdkmDYBXAB2301-00-23 12:46:00 Test Item Value Reference Range Interpretation Comments HDL (test code = HDL) 59 [facility] HospitalXolkgdyGLPAHG6615-12-43 12:46:00 Test Item Value Reference Range Interpretation Comments CHD Risk (test code = CHD Risk) 2.08 1 3.90-5.80 [facility] HospitalYqfnrubDBUPTH2771-73-03 12:46:00 Test Item Value Reference Range Interpretation Comments LDL (Calculated) (test code = LDL 53 (Calculated)) [facility] HospitalQfucypeJQLHBO6988-70-76 12:46:00 Test Item Value Reference Range Interpretation Comments VLDL (test code = VLDL) 11 1 [facility] [id number] 12:46:00 Test Item Value Reference Range Interpretation Comments Hgb A1C (test code = Hgb A1C) 5.3 [facility]2022-02-19 12:46:00 Test Item Value Reference Range Interpretation Comments Glucose Lvl (test code = Glucose Lvl) 101 70-99 [facility]2022-02-19 12:46:00 Test Item Value Reference Range Interpretation Comments BUN (test code = BUN) 49 7-22 [facility]2022-02-19 12:46:00 Test Item Value Reference Range Interpretation Comments Creatinine Lvl (test code = Creatinine 1.80 0.50-1.40 Lvl) [facility]2022-02-19 12:46:00 Test Item Value Reference Range Interpretation Comments Sodium Lvl (test code = Sodium Lvl) 139 135-145 [facility]2022-02-19 12:46:00 Test Item Value Reference Range Interpretation Comments Potassium Lvl (test code = Potassium 5.3 3.5-5.1 Lvl) [facility]2022-02-19 12:46:00 Test Item Value Reference Range Interpretation Comments Chloride Lvl (test code = Chloride Lvl) 110 95-109 [facility]2022-02-19 12:46:00 Test Item Value Reference Range Interpretation Comments CO2 (test code = CO2) 21 24-32 [facility] [id number] 12:46:00 Test Item Value Reference Range Interpretation Comments Calcium Lvl (test code = Calcium Lvl) 8.5 8.5-10.5 [facility] [id number] 12:46:00 Test Item Value Reference Range Interpretation Comments AGAP (test code = AGAP) 13.3 10.0-20.0 [facility]2022-02-19 12:46:00 Test Item Value Reference Range Interpretation Comments eGFR (test code = eGFR) 26 [facility] HospitalLprjgvpBIJHVF0007-07-01 12:46:00 Test Item Value Reference Range Interpretation Comments Trig (test code = Trig) 57 [facility] [id number] 12:46:00 Test Item Value Reference Range Interpretation Comments Chol (test code = Chol) 123 [facility] HospitalUbczipkJFNCFC6020-41-53 12:46:00 Test Item Value Reference Range Interpretation Comments HDL (test code = HDL) 59 [facility] HospitalNetnscpCJAXYC0821-00-86 12:46:00 Test Item Value Reference Range Interpretation Comments CHD Risk (test code = CHD Risk) 2.08 1 3.90-5.80 [facility] HospitalRmdyjieSNYRHE9674-46-01 12:46:00 Test Item Value Reference Range Interpretation Comments LDL (Calculated) (test code = LDL 53 (Calculated)) [facility] HospitalJdpgpolRCHEJE1911-01-71 12:46:00 Test Item Value Reference Range Interpretation Comments VLDL (test code = VLDL) 11 1 [facility] [id number] 12:46:00 Test Item Value Reference Range Interpretation Comments Hgb A1C (test code = Hgb A1C) 5.3 [facility] [id number] 12:46:00 Test Item Value Reference Range Interpretation Comments Glucose Lvl (test code = Glucose Lvl) 101 70-99 [facility]2022-02-19 12:46:00 Test Item Value Reference Range Interpretation Comments BUN (test code = BUN) 49 7-22 [facility] [id number] 12:46:00 Test Item Value Reference Range Interpretation Comments Creatinine Lvl (test code = Creatinine 1.80 0.50-1.40 Lvl) [facility]2022-02-19 12:46:00 Test Item Value Reference Range Interpretation Comments Sodium Lvl (test code = Sodium Lvl) 139 135-145 [facility]2022-02-19 12:46:00 Test Item Value Reference Range Interpretation Comments Potassium Lvl (test code = Potassium 5.3 3.5-5.1 Lvl) [facility]2022-02-19 12:46:00 Test Item Value Reference Range Interpretation Comments Chloride Lvl (test code = Chloride Lvl) 110 95-109 [facility]2022-02-19 12:46:00 Test Item Value Reference Range Interpretation Comments CO2 (test code = CO2) 21 24-32 [facility]2022-02-19 12:46:00 Test Item Value Reference Range Interpretation Comments Calcium Lvl (test code = Calcium Lvl) 8.5 8.5-10.5 [facility]2022-02-19 12:46:00 Test Item Value Reference Range Interpretation Comments AGAP (test code = AGAP) 13.3 10.0-20.0 [facility]2022-02-19 12:46:00 Test Item Value Reference Range Interpretation Comments eGFR (test code = eGFR) 26 [facility] HospitalVvwvetvGKSHYU2481-12-86 12:46:00 Test Item Value Reference Range Interpretation Comments Trig (test code = Trig) 57 [facility] HospitalPakahddBSMLMD2985-70-33 12:46:00 Test Item Value Reference Range Interpretation Comments Chol (test code = Chol) 123 [facility] HospitalJajcjqzHTZQSJ7548-18-95 12:46:00 Test Item Value Reference Range Interpretation Comments HDL (test code = HDL) 59 [facility] HospitalLcnrmemYQNJMJ9615-21-20 12:46:00 Test Item Value Reference Range Interpretation Comments CHD Risk (test code = CHD Risk) 2.08 1 3.90-5.80 [facility] HospitalXbbbyvlATHRFV4329-48-02 12:46:00 Test Item Value Reference Range Interpretation Comments LDL (Calculated) (test code = LDL 53 (Calculated)) [facility] HospitalDjjoptvEAPCCB9444-75-41 12:46:00 Test Item Value Reference Range Interpretation Comments VLDL (test code = VLDL) 11 1 [facility] [id number] 12:46:00 Test Item Value Reference Range Interpretation Comments Hgb A1C (test code = Hgb A1C) 5.3 [place] 542562-02-19 12:46:00 Test Item Value Reference Range Interpretation Comments Glucose Lvl (test code = Glucose Lvl) 101 70-99 [place] 542562-02-19 12:46:00 Test Item Value Reference Range Interpretation Comments BUN (test code = BUN) 49 7-22 [place] 542562-02-19 12:46:00 Test Item Value Reference Range Interpretation Comments Creatinine Lvl (test code = Creatinine 1.80 0.50-1.40 Lvl) [place] 542562-02-19 12:46:00 Test Item Value Reference Range Interpretation Comments Sodium Lvl (test code = Sodium Lvl) 139 135-145 [place] 542562-02-19 12:46:00 Test Item Value Reference Range Interpretation Comments Potassium Lvl (test code = Potassium 5.3 3.5-5.1 Lvl) [place] 542562-02-19 12:46:00 Test Item Value Reference Range Interpretation Comments Chloride Lvl (test code = Chloride Lvl) 110 95-109 [place] 542562-02-19 12:46:00 Test Item Value Reference Range Interpretation Comments CO2 (test code = CO2) 21 24-32 [facility]2022-02-19 12:46:00 Test Item Value Reference Range Interpretation Comments Calcium Lvl (test code = Calcium Lvl) 8.5 8.5-10.5 [place] 542562-02-19 12:46:00 Test Item Value Reference Range Interpretation Comments AGAP (test code = AGAP) 13.3 10.0-20.0 [place] 542562-02-19 12:46:00 Test Item Value Reference Range Interpretation Comments eGFR (test code = eGFR) 26 [place] 519712-02-19 12:46:00 Test Item Value Reference Range Interpretation Comments Trig (test code = Trig) 57 [place] 519712-02-19 12:46:00 Test Item Value Reference Range Interpretation Comments Chol (test code = Chol) 123 [place] 519712-02-19 12:46:00 Test Item Value Reference Range Interpretation Comments HDL (test code = HDL) 59 [facility] HospitalZcyrrtrUXAQFJ6110-46-25 12:46:00 Test Item Value Reference Range Interpretation Comments CHD Risk (test code = CHD Risk) 2.08 1 3.90-5.80 [facility] HospitalFzmbuhlHUYHVV1415-34-98 12:46:00 Test Item Value Reference Range Interpretation Comments LDL (Calculated) (test code = LDL 53 (Calculated)) [facility] HospitalZvvgmygTWNPWE2560-63-77 12:46:00 Test Item Value Reference Range Interpretation Comments VLDL (test code = VLDL) 11 1 [facility] [id number] 12:46:00 Test Item Value Reference Range Interpretation Comments Hgb A1C (test code = Hgb A1C) 5.3 [facility] [id number] 12:46:00 Test Item Value Reference Range Interpretation Comments Glucose Lvl (test code = Glucose Lvl) 101 70-99 [facility]2022-02-19 12:46:00 Test Item Value Reference Range Interpretation Comments BUN (test code = BUN) 49 7-22 [facility]2022-02-19 12:46:00 Test Item Value Reference Range Interpretation Comments Creatinine Lvl (test code = Creatinine 1.80 0.50-1.40 Lvl) [facility]2022-02-19 12:46:00 Test Item Value Reference Range Interpretation Comments Sodium Lvl (test code = Sodium Lvl) 139 135-145 [facility]2022-02-19 12:46:00 Test Item Value Reference Range Interpretation Comments Potassium Lvl (test code = Potassium 5.3 3.5-5.1 Lvl) [facility]2022-02-19 12:46:00 Test Item Value Reference Range Interpretation Comments Chloride Lvl (test code = Chloride Lvl) 110 95-109 [facility]2022-02-19 12:46:00 Test Item Value Reference Range Interpretation Comments CO2 (test code = CO2) 21 24-32 [facility]2022-02-19 12:46:00 Test Item Value Reference Range Interpretation Comments Calcium Lvl (test code = Calcium Lvl) 8.5 8.5-10.5 [place] 542562-02-19 12:46:00 Test Item Value Reference Range Interpretation Comments AGAP (test code = AGAP) 13.3 10.0-20.0 [facility]2022-02-19 12:46:00 Test Item Value Reference Range Interpretation Comments eGFR (test code = eGFR) 26 [facility] Hospi[id number] 12:46:00 Test Item Value Reference Range Interpretation Comments Trig (test code = Trig) 57 [facility] [id number] 12:46:00 Test Item Value Reference Range Interpretation Comments Chol (test code = Chol) 123 [facility] HospitalQulwapqPFLLVQ9614-06-84 12:46:00 Test Item Value Reference Range Interpretation Comments HDL (test code = HDL) 59 [facility] HospitalQscnzlwMGPNVB2544-61-00 12:46:00 Test Item Value Reference Range Interpretation Comments CHD Risk (test code = CHD Risk) 2.08 1 3.90-5.80 [facility] HospitalMezctqaLFBOXY2736-59-85 12:46:00 Test Item Value Reference Range Interpretation Comments LDL (Calculated) (test code = LDL 53 (Calculated)) [facility] HospitalCoanisaUPBAUH4780-16-98 12:46:00 Test Item Value Reference Range Interpretation Comments VLDL (test code = VLDL) 11 1 [facility] [id number] 12:46:00 Test Item Value Reference Range Interpretation Comments Hgb A1C (test code = Hgb A1C) 5.3 [facility]2022-02-19 12:46:00 Test Item Value Reference Range Interpretation Comments Glucose Lvl (test code = Glucose Lvl) 101 70-99 [facility]2022-02-19 12:46:00 Test Item Value Reference Range Interpretation Comments BUN (test code = BUN) 49 7-22 [facility]2022-02-19 12:46:00 Test Item Value Reference Range Interpretation Comments Creatinine Lvl (test code = Creatinine 1.80 0.50-1.40 Lvl) [facility]2022-02-19 12:46:00 Test Item Value Reference Range Interpretation Comments Sodium Lvl (test code = Sodium Lvl) 139 135-145 [facility]2022-02-19 12:46:00 Test Item Value Reference Range Interpretation Comments Potassium Lvl (test code = Potassium 5.3 3.5-5.1 Lvl) [facility]2022-02-19 12:46:00 Test Item Value Reference Range Interpretation Comments Chloride Lvl (test code = Chloride Lvl) 110 95-109 [facility] [id number] 12:46:00 Test Item Value Reference Range Interpretation Comments CO2 (test code = CO2) 21 24-32 [facility] [id number] 12:46:00 Test Item Value Reference Range Interpretation Comments Calcium Lvl (test code = Calcium Lvl) 8.5 8.5-10.5 [facility] [id number] 12:46:00 Test Item Value Reference Range Interpretation Comments AGAP (test code = AGAP) 13.3 10.0-20.0 [facility]2022-02-19 12:46:00 Test Item Value Reference Range Interpretation Comments eGFR (test code = eGFR) 26 [facility] HospitalNwrdomrJXIZJW7537-04-62 12:46:00 Test Item Value Reference Range Interpretation Comments Trig (test code = Trig) 57 [facility] HospitalOwvpazhDOTCDC3296-22-10 12:46:00 Test Item Value Reference Range Interpretation Comments Chol (test code = Chol) 123 [facility] HospitalMfmesduAAZWSB5044-12-29 12:46:00 Test Item Value Reference Range Interpretation Comments HDL (test code = HDL) 59 [facility] HospitalLpdrjxnRIYLIB8821-33-78 12:46:00 Test Item Value Reference Range Interpretation Comments CHD Risk (test code = CHD Risk) 2.08 1 3.90-5.80 [facility] HospitalRxhqgjnSRFVFG6809-67-34 12:46:00 Test Item Value Reference Range Interpretation Comments LDL (Calculated) (test code = LDL 53 (Calculated)) [facility] HospitalMwomxfhOPHEGO0013-43-20 12:46:00 Test Item Value Reference Range Interpretation Comments VLDL (test code = VLDL) 11 1 [facility] [id number] 12:46:00 Test Item Value Reference Range Interpretation Comments Hgb A1C (test code = Hgb A1C) 5.3 [facility] [id number] 12:46:00 Test Item Value Reference Range Interpretation Comments Glucose Lvl (test code = Glucose Lvl) 101 70-99 [facility]2022-02-19 12:46:00 Test Item Value Reference Range Interpretation Comments BUN (test code = BUN) 49 7-22 [facility]2022-02-19 12:46:00 Test Item Value Reference Range Interpretation Comments Creatinine Lvl (test code = Creatinine 1.80 0.50-1.40 Lvl) [place] 542562-02-19 12:46:00 Test Item Value Reference Range Interpretation Comments Sodium Lvl (test code = Sodium Lvl) 139 135-145 [place] 542562-02-19 12:46:00 Test Item Value Reference Range Interpretation Comments Potassium Lvl (test code = Potassium 5.3 3.5-5.1 Lvl) [place] 542562-02-19 12:46:00 Test Item Value Reference Range Interpretation Comments Chloride Lvl (test code = Chloride Lvl) 110 95-109 [place] 542562-02-19 12:46:00 Test Item Value Reference Range Interpretation Comments CO2 (test code = CO2) 21 24-32 [place] 542562-02-19 12:46:00 Test Item Value Reference Range Interpretation Comments Calcium Lvl (test code = Calcium Lvl) 8.5 8.5-10.5 [place] 542562-02-19 12:46:00 Test Item Value Reference Range Interpretation Comments AGAP (test code = AGAP) 13.3 10.0-20.0 [place] 542562-02-19 12:46:00 Test Item Value Reference Range Interpretation Comments eGFR (test code = eGFR) 26 [place] 519712-02-19 12:46:00 Test Item Value Reference Range Interpretation Comments Trig (test code = Trig) 57 [place] 519712-02-19 12:46:00 Test Item Value Reference Range Interpretation Comments Chol (test code = Chol) 123 [place] [address]-02-19 12:46:00 Test Item Value Reference Range Interpretation Comments HDL (test code = HDL) 59 [place] [address]-02-19 12:46:00 Test Item Value Reference Range Interpretation Comments CHD Risk (test code = CHD Risk) 2.08 1 3.90-5.80 [place] 519712-02-19 12:46:00 Test Item Value Reference Range Interpretation Comments LDL (Calculated) (test code = LDL 53 (Calculated)) [place] 519712-02-19 12:46:00 Test Item Value Reference Range Interpretation Comments VLDL (test code = VLDL) 11 1 [facility] [id number] 12:46:00 Test Item Value Reference Range Interpretation Comments Hgb A1C (test code = Hgb A1C) 5.3 [facility] [id number] 12:46:00 Test Item Value Reference Range Interpretation Comments Glucose Lvl (test code = Glucose Lvl) 101 70-99 [facility]2022-02-19 12:46:00 Test Item Value Reference Range Interpretation Comments BUN (test code = BUN) 49 7-22 [facility]2022-02-19 12:46:00 Test Item Value Reference Range Interpretation Comments Creatinine Lvl (test code = Creatinine 1.80 0.50-1.40 Lvl) [facility]2022-02-19 12:46:00 Test Item Value Reference Range Interpretation Comments Sodium Lvl (test code = Sodium Lvl) 139 135-145 [facility]2022-02-19 12:46:00 Test Item Value Reference Range Interpretation Comments Potassium Lvl (test code = Potassium 5.3 3.5-5.1 Lvl) [facility]2022-02-19 12:46:00 Test Item Value Reference Range Interpretation Comments Chloride Lvl (test code = Chloride Lvl) 110 95-109 [facility]2022-02-19 12:46:00 Test Item Value Reference Range Interpretation Comments CO2 (test code = CO2) 21 24-32 [facility]2022-02-19 12:46:00 Test Item Value Reference Range Interpretation Comments Calcium Lvl (test code = Calcium Lvl) 8.5 8.5-10.5 [facility]2022-02-19 12:46:00 Test Item Value Reference Range Interpretation Comments AGAP (test code = AGAP) 13.3 10.0-20.0 [facility] [facility] 12:46:00 Test Item Value Reference Range Interpretation Comments eGFR (test code = eGFR) 26 [facility]fky[facility]ftPYQSMB4325[facility]76-12 12:46:00 Test Item Value Reference Range Interpretation Comments Trig (test code = Trig) 57 [facility] HospitalPcysgorLYHBSF7654-78-54 12:46:00 Test Item Value Reference Range Interpretation Comments Chol (test code = Chol) 123 [place] [address]-02-19 12:46:00 Test Item Value Reference Range Interpretation Comments HDL (test code = HDL) 59 [facility] HospitalHflpuvqXNIBXN1392-40-51 12:46:00 Test Item Value Reference Range Interpretation Comments CHD Risk (test code = CHD Risk) 2.08 1 3.90-5.80 [facility] HospitalUmlotzaJAAEYF7683-51-34 12:46:00 Test Item Value Reference Range Interpretation Comments LDL (Calculated) (test code = LDL 53 (Calculated)) [facility] HospitalOzonrmcDAELYN4828-01-55 12:46:00 Test Item Value Reference Range Interpretation Comments VLDL (test code = VLDL) 11 1 [facility] [id number] 12:46:00 Test Item Value Reference Range Interpretation Comments Hgb A1C (test code = Hgb A1C) 5.3 [facility]2022-02-19 12:46:00 Test Item Value Reference Range Interpretation Comments Glucose Lvl (test code = Glucose Lvl) 101 70-99 [facility]2022-02-19 12:46:00 Test Item Value Reference Range Interpretation Comments BUN (test code = BUN) 49 7-22 [facility]2022-02-19 12:46:00 Test Item Value Reference Range Interpretation Comments Creatinine Lvl (test code = Creatinine 1.80 0.50-1.40 Lvl) [facility]2022-02-19 12:46:00 Test Item Value Reference Range Interpretation Comments Sodium Lvl (test code = Sodium Lvl) 139 135-145 [facility]2022-02-19 12:46:00 Test Item Value Reference Range Interpretation Comments Potassium Lvl (test code = Potassium 5.3 3.5-5.1 Lvl) [facility]2022-02-19 12:46:00 Test Item Value Reference Range Interpretation Comments Chloride Lvl (test code = Chloride Lvl) 110 95-109 [facility]2022-02-19 12:46:00 Test Item Value Reference Range Interpretation Comments CO2 (test code = CO2) 21 24-32 [facility]2022-02-19 12:46:00 Test Item Value Reference Range Interpretation Comments Calcium Lvl (test code = Calcium Lvl) 8.5 8.5-10.5 [facility]2022-02-19 12:46:00 Test Item Value Reference Range Interpretation Comments AGAP (test code = AGAP) 13.3 10.0-20.0 [facility]2022-02-19 12:46:00 Test Item Value Reference Range Interpretation Comments eGFR (test code = eGFR) 26 [facility] HospitalHxgmwftSHJARN7620-17-23 12:46:00 Test Item Value Reference Range Interpretation Comments Trig (test code = Trig) 57 [facility] HospitalQfrbvyjFDAHXN3600-30-99 12:46:00 Test Item Value Reference Range Interpretation Comments Chol (test code = Chol) 123 [facility] HospitalOdpdgxyTWIVPU4670-80-37 12:46:00 Test Item Value Reference Range Interpretation Comments HDL (test code = HDL) [facility] 12:46:00 Test Item Value Reference Range Interpretation Comments CHD Risk (test code = CHD Risk) 2.08 1 3.90-5.80 [facility] HospitalVedrducVNVWJN9234-30-71 12:46:00 Test Item Value Reference Range Interpretation Comments LDL (Calculated) (test code = LDL 53 (Calculated)) [facility] HospitalBaxlajeWPPRGF0726-32-78 12:46:00 Test Item Value Reference Range Interpretation Comments VLDL (test code = VLDL) 11 1 [facility] QJMPVLTCY2652-31-19 12:46:00 Test Item Value Reference Range Interpretation Comments Hgb A1C (test code = Hgb A1C) 5.3 [facility]2022-02-19 12:46:00 Test Item Value Reference Range Interpretation Comments Glucose Lvl (test code = Glucose Lvl) 101 70-99 [facility]2022-02-19 12:46:00 Test Item Value Reference Range Interpretation Comments BUN (test code = BUN) 49 7-22 [facility]2022-02-19 12:46:00 Test Item Value Reference Range Interpretation Comments Creatinine Lvl (test code = Creatinine 1.80 0.50-1.40 Lvl) [facility]2022-02-19 12:46:00 Test Item Value Reference Range Interpretation Comments Sodium Lvl (test code = Sodium Lvl) 139 135-145 [facility]2022-02-19 12:46:00 Test Item Value Reference Range Interpretation Comments Potassium Lvl (test code = Potassium 5.3 3.5-5.1 Lvl) [facility]2022-02-19 12:46:00 Test Item Value Reference Range Interpretation Comments Chloride Lvl (test code = Chloride Lvl) 110 95-109 [facility]2022-02-19 12:46:00 Test Item Value Reference Range Interpretation Comments CO2 (test code = CO2) 21 24-32 [facility] [id number] 12:46:00 Test Item Value Reference Range Interpretation Comments Calcium Lvl (test code = Calcium Lvl) 8.5 8.5-10.5 [facility]2022-02-19 12:46:00 Test Item Value Reference Range Interpretation Comments AGAP (test code = AGAP) 13.3 10.0-20.0 [facility]2022-02-19 12:46:00 Test Item Value Reference Range Interpretation Comments eGFR (test code = eGFR) 26 [facility] HospitalHzquigaKWULRB4059-74-02 12:46:00 Test Item Value Reference Range Interpretation Comments Trig (test code = Trig) 57 [facility] HospitalNdzsadzOEKAMD0166-85-74 12:46:00 Test Item Value Reference Range Interpretation Comments Chol (test code = Chol) 123 [facility] HospitalYoqsjjgCVGXEN1059-88-77 12:46:00 Test Item Value Reference Range Interpretation Comments HDL (test code = HDL) 59 [facility] HospitalTfcyxxfKNCFSB4319-50-09 12:46:00 Test Item Value Reference Range Interpretation Comments CHD Risk (test code = CHD Risk) 2.08 1 3.90-5.80 [facility] HospitalYqadyflFRCPCF3079-67-20 12:46:00 Test Item Value Reference Range Interpretation Comments LDL (Calculated) (test code = LDL 53 (Calculated)) [facility] HospitalTgoojaxVDGXVJ9730-89-43 12:46:00 Test Item Value Reference Range Interpretation Comments VLDL (test code = VLDL) 11 [facility] [id number] 12:46:00 Test Item Value Reference Range Interpretation Comments Hgb A1C (test code = Hgb A1C) 5.3 [facility]2022-02-19 12:46:00 Test Item Value Reference Range Interpretation Comments Glucose Lvl (test code = Glucose Lvl) 101 70-99 [facility]2022-02-19 12:46:00 Test Item Value Reference Range Interpretation Comments BUN (test code = BUN) 49 7-22 [facility]2022-02-19 12:46:00 Test Item Value Reference Range Interpretation Comments Creatinine Lvl (test code = Creatinine 1.80 0.50-1.40 Lvl) [facility]2022-02-19 12:46:00 Test Item Value Reference Range Interpretation Comments Sodium Lvl (test code = Sodium Lvl) 139 135-145 [place] 542562-02-19 12:46:00 Test Item Value Reference Range Interpretation Comments Potassium Lvl (test code = Potassium 5.3 3.5-5.1 Lvl) [facility]2022-02-19 12:46:00 Test Item Value Reference Range Interpretation Comments Chloride Lvl (test code = Chloride Lvl) 110 95-109 [place] 542562-02-19 12:46:00 Test Item Value Reference Range Interpretation Comments CO2 (test code = CO2) 21 24-32 [place] 542562-02-19 12:46:00 Test Item Value Reference Range Interpretation Comments Calcium Lvl (test code = Calcium Lvl) 8.5 8.5-10.5 [facility]2022-02-19 12:46:00 Test Item Value Reference Range Interpretation Comments AGAP (test code = AGAP) 13.3 10.0-20.0 [facility]2022-02-19 12:46:00 Test Item Value Reference Range Interpretation Comments eGFR (test code = eGFR) 26 [place] 519712-02-19 12:46:00 Test Item Value Reference Range Interpretation Comments Trig (test code = Trig) 57 [facility] HospitalEbhwrqsBPCMJZ4526-74-22 12:46:00 Test Item Value Reference Range Interpretation Comments Chol (test code = Chol) 123 [place] 519712-02-19 12:46:00 Test Item Value Reference Range Interpretation Comments HDL (test code = HDL) 59 [place] 519712-02-19 12:46:00 Test Item Value Reference Range Interpretation Comments CHD Risk (test code = CHD Risk) 2.08 1 3.90-5.80 [place] 519712-02-19 12:46:00 Test Item Value Reference Range Interpretation Comments LDL (Calculated) (test code = LDL 53 (Calculated)) [place] 519712-02-19 12:46:00 Test Item Value Reference Range Interpretation Comments VLDL (test code = VLDL) 11 1 [facility] [id number] 12:46:00 Test Item Value Reference Range Interpretation Comments Hgb A1C (test code = Hgb A1C) 5.3 [facility] [id number] 20:16:00 Test Item Value Reference Range Interpretation Comments FFP product (test code Product available = FFP product) (12/29/21 2:16 PM) [facility] [id number] 20:16:00 Test Item Value Reference Range Interpretation Comments RBC product (test code Product available = RBC product) (12/29/21 2:16 PM) [facility] [id number] 20:16:00 Test Item Value Reference Range Interpretation Comments FFP product (test code Product available = FFP product) (12/29/21 2:16 PM) [facility] [id number] 20:16:00 Test Item Value Reference Range Interpretation Comments RBC product (test code Product available = RBC product) (12/29/21 2:16 PM) [facility] [id number] 20:16:00 Test Item Value Reference Range Interpretation Comments FFP product (test code Product available = FFP product) (12/29/21 2:16 PM) [facility] [id number] 20:16:00 Test Item Value Reference Range Interpretation Comments RBC product (test code Product available = RBC product) (12/29/21 2:16 PM) [facility] [id number] 20:16:00 Test Item Value Reference Range Interpretation Comments FFP product (test code Product available = FFP product) (12/29/21 2:16 PM) [facility] [id number] 20:16:00 Test Item Value Reference Range Interpretation Comments RBC product (test code Product available = RBC product) (12/29/21 2:16 PM) [facility] [id number] 20:16:00 Test Item Value Reference Range Interpretation Comments FFP product (test code Product available = FFP product) (12/29/21 2:16 PM) [facility] [id number] 20:16:00 Test Item Value Reference Range Interpretation Comments RBC product (test code Product available = RBC product) (12/29/21 2:16 PM) [facility] [id number] 20:16:00 Test Item Value Reference Range Interpretation Comments FFP product (test code Product available = FFP product) (12/29/21 2:16 PM) [facility] [id number] 20:16:00 Test Item Value Reference Range Interpretation Comments RBC product (test code Product available = RBC product) (12/29/21 2:16 PM) [facility] [id number] 20:16:00 Test Item Value Reference Range Interpretation Comments FFP product (test code Product available = FFP product) (12/29/21 2:16 PM) [facility] [id number] 20:16:00 Test Item Value Reference Range Interpretation Comments RBC product (test code Product available = RBC product) (12/29/21 2:16 PM) [facility] [id number] 20:16:00 Test Item Value Reference Range Interpretation Comments FFP product (test code Product available = FFP product) (12/29/21 2:16 PM) [facility] [id number] 20:16:00 Test Item Value Reference Range Interpretation Comments RBC product (test code Product available = RBC product) (12/29/21 2:16 PM) [facility] [id number] 20:16:00 Test Item Value Reference Range Interpretation Comments FFP product (test code Product available = FFP product) (12/29/21 2:16 PM) [facility] [id number] 20:16:00 Test Item Value Reference Range Interpretation Comments RBC product (test code Product available = RBC product) (12/29/21 2:16 PM) [facility] [id number] 20:16:00 Test Item Value Reference Range Interpretation Comments FFP product (test code Product available = FFP product) (12/29/21 2:16 PM) [facility] [id number] 20:16:00 Test Item Value Reference Range Interpretation Comments RBC product (test code Product available = RBC product) (12/29/21 2:16 PM) [facility] [id number] 20:16:00 Test Item Value Reference Range Interpretation Comments FFP product (test code Product available = FFP product) (12/29/21 2:16 PM) [facility] [id number] 20:16:00 Test Item Value Reference Range Interpretation Comments RBC product (test code Product available = RBC product) (12/29/21 2:16 PM) [facility] [id number] 20:16:00 Test Item Value Reference Range Interpretation Comments FFP product (test code Product available = FFP product) (12/29/21 2:16 PM) [facility] [id number] 20:16:00 Test Item Value Reference Range Interpretation Comments RBC product (test code Product available = RBC product) (12/29/21 2:16 PM) [facility] [id number] 09:00:00 Test Item Value Reference Range Interpretation Comments Ferritin Lvl (test code = Ferritin Lvl) 166 5-204 [facility] [id number] 09:00:00 Test Item Value Reference Range Interpretation Comments Iron (test code = Iron) 195 [facility]2022-02-18 09:00:00 Test Item Value Reference Range Interpretation Comments TIBC (test code = TIBC) 315 [facility] [id number] 09:00:00 Test Item Value Reference Range Interpretation Comments % Satur Fe (test code = % Satur Fe) 62 [facility] [id number] 09:00:00 Test Item Value Reference Range Interpretation Comments Folate Lvl (test code = Folate Lvl) 11.5 [facility]2022-02-18 09:00:00 Test Item Value Reference Range Interpretation Comments Vitamin B12 Lvl (test code = Vitamin 352 B12 Lvl) [facility] [id number] 09:00:00 Test Item Value Reference Range Interpretation Comments Albumin Lvl (test code = Albumin Lvl) 2.9 3.5-5.0 [facility] HospitalZrsmnpmPWJCGJOXLE6378-22-64 09:00:00 Test Item Value Reference Range Interpretation Comments RBC Morph (test code = Normal (12/29/21 3:00 RBC Morph) AM) [facility]DDIMXSTZS5651[facility]27-98 09:00:00 Test Item Value Reference Range Interpretation Comments Plt Morph (test code = Normal (12/29/21 3:00 Plt Morph) AM) [place] 519362-02-18 09:00:00 Test Item Value Reference Range Interpretation Comments Segs (test code = Segs) 87.8 45.0-75.0 [place] 519362-02-18 09:00:00 Test Item Value Reference Range Interpretation Comments Lymphocytes (test code = Lymphocytes) 8.9 20.0-40.0 [place] 519362-02-18 09:00:00 Test Item Value Reference Range Interpretation Comments Monocytes (test code = Monocytes) 2.7 2.0-12.0 [place] 519362-02-18 09:00:00 Test Item Value Reference Range Interpretation Comments Eosinophils (test code = 0.1 See_Comment [A utomated message] The Eosinophils) system which ge nerated this result tra nsmitted reference range : <=4.0. The reference r patria was not used to int erpret this result as normal/abnormal . [facility]MbbuntwFGOUTKZRXQ7135-55-35 09:00:00 Test Item Value Reference Range Interpretation Comments Basophils (test code = 0.5 See_Comment [Aut omated message] The Basophils) system which ge nerated this result tra nsmitted reference range : <=1.0. The reference r patria was not used to int erpret this result as normal/abnormal . [facility] CenterGekkhhaFUPPFEDVUB7880-37-33 09:00:00 Test Item Value Reference Range Interpretation Comments Neutrophils # (test code = Neutrophils 4.8 1.5-8.1 #) [place] 519362-02-18 09:00:00 Test Item Value Reference Range Interpretation Comments Lymphocytes # (test code = Lymphocytes 0.5 1.0-5.5 #) [place] 519362-02-18 09:00:00 Test Item Value Reference Range Interpretation Comments Monocytes # (test code 0.1 See_Comment [Aut omated message] The = Monocytes #) system which generated this result tra nsmitted reference range : <=0.8. The reference r patria was not used to int erpret this result as normal/abnormal . [place] 519362-02-18 09:00:00 Test Item Value Reference Range Interpretation Comments WBC (test code = WBC) 5.5 3.7-10.4 [place] 519362-02-18 09:00:00 Test Item Value Reference Range Interpretation Comments RBC (test code = RBC) 2.93 4.20-5.40 [facility] CenterSljvpbrQEHOERJJHF7741-83-12 09:00:00 Test Item Value Reference Range Interpretation Comments Hgb (test code = Hgb) 9.8 12.0-16.0 [place] 519362-02-18 09:00:00 Test Item Value Reference Range Interpretation Comments Hct (test code = Hct) 28.8 36.0-48.0 [place] 519362-02-18 09:00:00 Test Item Value Reference Range Interpretation Comments MCV (test code = MCV) 98.4 80.0-98.0 [place] 519362-02-18 09:00:00 Test Item Value Reference Range Interpretation Comments MCH (test code = MCH) 33.4 pg 27.0-31.0 [place] 519362-02-18 09:00:00 Test Item Value Reference Range Interpretation Comments MCHC (test code = MCHC) 34.0 32.0-36.0 [place] 519362-02-18 09:00:00 Test Item Value Reference Range Interpretation Comments RDW (test code = RDW) 18.6 11.5-14.5 [facility]OzzehroAXDATOMFXI9711-13-12 09:00:00 Test Item Value Reference Range Interpretation Comments Platelet (test code = Platelet) 160 133-450 [facility] CenterEstbzrzHGNFQGVXYI3207-91-71 09:00:00 Test Item Value Reference Range Interpretation Comments MPV (test code = MPV) 6.7 7.4-10.4 [facility]2022-02-18 09:00:00 Test Item Value Reference Range Interpretation Comments Ferritin Lvl (test code = Ferritin Lvl) 166 5-204 [facility]2022-02-18 09:00:00 Test Item Value Reference Range Interpretation Comments Iron (test code = Iron) 195 [facility]2022-02-18 09:00:00 Test Item Value Reference Range Interpretation Comments TIBC (test code = TIBC) 315 [facility]2022-02-18 09:00:00 Test Item Value Reference Range Interpretation Comments % Satur Fe (test code = % Satur Fe) 62 [facility]2022-02-18 09:00:00 Test Item Value Reference Range Interpretation Comments Folate Lvl (test code = Folate Lvl) 11.5 [facility]2022-02-18 09:00:00 Test Item Value Reference Range Interpretation Comments Vitamin B12 Lvl (test code = Vitamin 352 B12 Lvl) [facility]2022-02-18 09:00:00 Test Item Value Reference Range Interpretation Comments Albumin Lvl (test code = Albumin Lvl) 2.9 3.5-5.0 [place] 519362-02-18 09:00:00 Test Item Value Reference Range Interpretation Comments RBC Morph (test code = Normal (12/29/21 3:00 RBC Morph) AM) [place] 519362-02-18 09:00:00 Test Item Value Reference Range Interpretation Comments Plt Morph (test code = Normal (12/29/21 3:00 Plt Morph) AM) [place] [address]-02-18 09:00:00 Test Item Value Reference Range Interpretation Comments Segs (test code = Segs) 87.8 45.0-75.0 [place] 519362-02-18 09:00:00 Test Item Value Reference Range Interpretation Comments Lymphocytes (test code = Lymphocytes) 8.9 20.0-40.0 [place] 519362-02-18 09:00:00 Test Item Value Reference Range Interpretation Comments Monocytes (test code = Monocytes) 2.7 2.0-12.0 [place] [address]-02-18 09:00:00 Test Item Value Reference Range Interpretation Comments Eosinophils (test code = 0.1 See_Comment [A utomated message] The Eosinophils) system which ge nerated this result tra nsmitted reference range : <=4.0. The reference r patria was not used to int erpret this result as normal/abnormal . [place] 519362-02-18 09:00:00 Test Item Value Reference Range Interpretation Comments Basophils (test code = 0.5 See_Comment [Aut omated message] The Basophils) system which ge nerated this result tra nsmitted reference range : <=1.0. The reference r patria was not used to int erpret this result as normal/abnormal . [place] 519362-02-18 09:00:00 Test Item Value Reference Range Interpretation Comments Neutrophils # (test code = Neutrophils 4.8 1.5-8.1 #) [place] 519362-02-18 09:00:00 Test Item Value Reference Range Interpretation Comments Lymphocytes # (test code = Lymphocytes 0.5 1.0-5.5 #) [place] 519362-02-18 09:00:00 Test Item Value Reference Range Interpretation Comments Monocytes # (test code 0.1 See_Comment [Aut omated message] The = Monocytes #) system which generated this result tra nsmitted reference range : <=0.8. The reference r patria was not used to int erpret this result as normal/abnormal . [place] 519362-02-18 09:00:00 Test Item Value Reference Range Interpretation Comments WBC (test code = WBC) 5.5 3.7-10.4 [place] 519362-02-18 09:00:00 Test Item Value Reference Range Interpretation Comments RBC (test code = RBC) 2.93 4.20-5.40 [place] [address]-02-18 09:00:00 Test Item Value Reference Range Interpretation Comments Hgb (test code = Hgb) 9.8 12.0-16.0 [place] [address]-02-18 09:00:00 Test Item Value Reference Range Interpretation Comments Hct (test code = Hct) 28.8 36.0-48.0 [place] [address]-02-18 09:00:00 Test Item Value Reference Range Interpretation Comments MCV (test code = MCV) 98.4 80.0-98.0 [place] [address]-02-18 09:00:00 Test Item Value Reference Range Interpretation Comments MCH (test code = MCH) 33.4 pg 27.0-31.0 [place] [address]-02-18 09:00:00 Test Item Value Reference Range Interpretation Comments MCHC (test code = MCHC) 34.0 32.0-36.0 [place] [address]-02-18 09:00:00 Test Item Value Reference Range Interpretation Comments RDW (test code = RDW) 18.6 11.5-14.5 [place] 519362-02-18 09:00:00 Test Item Value Reference Range Interpretation Comments Platelet (test code = Platelet) 160 133-450 [facility]OaguirpBQNGWRWFOZ4022-09-21 09:00:00 Test Item Value Reference Range Interpretation Comments MPV (test code = MPV) 6.7 7.4-10.4 [facility]2022-02-18 09:00:00 Test Item Value Reference Range Interpretation Comments Ferritin Lvl (test code = Ferritin Lvl) 166 5-204 [facility]2022-02-18 09:00:00 Test Item Value Reference Range Interpretation Comments Iron (test code = Iron) 195 [facility]2022-02-18 09:00:00 Test Item Value Reference Range Interpretation Comments TIBC (test code = TIBC) 315 [facility]2022-02-18 09:00:00 Test Item Value Reference Range Interpretation Comments % Satur Fe (test code = % Satur Fe) 62 [facility]2022-02-18 09:00:00 Test Item Value Reference Range Interpretation Comments Folate Lvl (test code = Folate Lvl) 11.5 [facility]2022-02-18 09:00:00 Test Item Value Reference Range Interpretation Comments Vitamin B12 Lvl (test code = Vitamin 352 B12 Lvl) [facility]2022-02-18 09:00:00 Test Item Value Reference Range Interpretation Comments Albumin Lvl (test code = Albumin Lvl) 2.9 3.5-5.0 [facility]NohoggwRUFOEDCQGH4385-52-22 09:00:00 Test Item Value Reference Range Interpretation Comments RBC Morph (test code = Normal (12/29/21 3:00 RBC Morph) AM) [facility]MtpggjdPAVTEOUFIE6272-91-28 09:00:00 Test Item Value Reference Range Interpretation Comments Plt Morph (test code = Normal (12/29/21 3:00 Plt Morph) AM) [place] 519362-02-18 09:00:00 Test Item Value Reference Range Interpretation Comments Segs (test code = Segs) 87.8 45.0-75.0 [facility] CenterFkuhxwiZUBVFYJEKH8412-66-49 09:00:00 Test Item Value Reference Range Interpretation Comments Lymphocytes (test code = Lymphocytes) 8.9 20.0-40.0 [place] 519362-02-18 09:00:00 Test Item Value Reference Range Interpretation Comments Monocytes (test code = Monocytes) 2.7 2.0-12.0 [place] 519362-02-18 09:00:00 Test Item Value Reference Range Interpretation Comments Eosinophils (test code = 0.1 See_Comment [A utomated message] The Eosinophils) system which ge nerated this result tra nsmitted reference range : <=4.0. The reference r patria was not used to int erpret this result as normal/abnormal . [place] 519362-02-18 09:00:00 Test Item Value Reference Range Interpretation Comments Basophils (test code = 0.5 See_Comment [Aut omated message] The Basophils) system which ge nerated this result tra nsmitted reference range : <=1.0. The reference r patria was not used to int erpret this result as normal/abnormal . [place] 519362-02-18 09:00:00 Test Item Value Reference Range Interpretation Comments Neutrophils # (test code = Neutrophils 4.8 1.5-8.1 #) [place] 519362-02-18 09:00:00 Test Item Value Reference Range Interpretation Comments Lymphocytes # (test code = Lymphocytes 0.5 1.0-5.5 #) [place] 519362-02-18 09:00:00 Test Item Value Reference Range Interpretation Comments Monocytes # (test code 0.1 See_Comment [Aut omated message] The = Monocytes #) system which generated this result tra nsmitted reference range : <=0.8. The reference r patria was not used to int erpret this result as normal/abnormal . [place] 519362-02-18 09:00:00 Test Item Value Reference Range Interpretation Comments WBC (test code = WBC) 5.5 3.7-10.4 [place] 519362-02-18 09:00:00 Test Item Value Reference Range Interpretation Comments RBC (test code = RBC) 2.93 4.20-5.40 [place] 519362-02-18 09:00:00 Test Item Value Reference Range Interpretation Comments Hgb (test code = Hgb) 9.8 12.0-16.0 [place] 519362-02-18 09:00:00 Test Item Value Reference Range Interpretation Comments Hct (test code = Hct) 28.8 36.0-48.0 [place] 519362-02-18 09:00:00 Test Item Value Reference Range Interpretation Comments MCV (test code = MCV) 98.4 80.0-98.0 [place] 519362-02-18 09:00:00 Test Item Value Reference Range Interpretation Comments MCH (test code = MCH) 33.4 pg 27.0-31.0 [place] 519362-02-18 09:00:00 Test Item Value Reference Range Interpretation Comments MCHC (test code = MCHC) 34.0 32.0-36.0 [place] 519362-02-18 09:00:00 Test Item Value Reference Range Interpretation Comments RDW (test code = RDW) 18.6 11.5-14.5 [place] 519362-02-18 09:00:00 Test Item Value Reference Range Interpretation Comments Platelet (test code = Platelet) 160 133-450 [place] 519362-02-18 09:00:00 Test Item Value Reference Range Interpretation Comments MPV (test code = MPV) 6.7 7.4-10.4 [facility]2022-02-18 09:00:00 Test Item Value Reference Range Interpretation Comments Ferritin Lvl (test code = Ferritin Lvl) 166 5-204 [facility]2022-02-18 09:00:00 Test Item Value Reference Range Interpretation Comments Iron (test code = Iron) 195 [place] 712142-02-18 09:00:00 Test Item Value Reference Range Interpretation Comments TIBC (test code = TIBC) 315 [facility]2022-02-18 09:00:00 Test Item Value Reference Range Interpretation Comments % Satur Fe (test code = % Satur Fe) 62 [place] 712142-02-18 09:00:00 Test Item Value Reference Range Interpretation Comments Folate Lvl (test code = Folate Lvl) 11.5 [facility]2022-02-18 09:00:00 Test Item Value Reference Range Interpretation Comments Vitamin B12 Lvl (test code = Vitamin 352 B12 Lvl) [id number] Test Item Value Reference Range Interpretation Comments Albumin Lvl (test code = Albumin Lvl) 2.9 3.5-5.0 [place] 519362-02-18 09:00:00 Test Item Value Reference Range Interpretation Comments RBC Morph (test code = Normal (12/29/21 3:00 RBC Morph) AM) [place] 519362-02-18 09:00:00 Test Item Value Reference Range Interpretation Comments Plt Morph (test code = Normal (12/29/21 3:00 Plt Morph) AM) [place] 519362-02-18 09:00:00 Test Item Value Reference Range Interpretation Comments Segs (test code = Segs) 87.8 45.0-75.0 [place] 519362-02-18 09:00:00 Test Item Value Reference Range Interpretation Comments Lymphocytes (test code = Lymphocytes) 8.9 20.0-40.0 [place] 519362-02-18 09:00:00 Test Item Value Reference Range Interpretation Comments Monocytes (test code = Monocytes) 2.7 2.0-12.0 [place] 519362-02-18 09:00:00 Test Item Value Reference Range Interpretation Comments Eosinophils (test code = 0.1 See_Comment [A utomated message] The Eosinophils) system which ge nerated this result tra nsmitted reference range : <=4.0. The reference r patria was not used to int erpret this result as normal/abnormal . [facility]:00 Test Item Value Reference Range Interpretation Comments Basophils (test code = 0.5 See_Comment [Aut omated message] The Basophils) system which ge nerated this result tra nsmitted reference range : <=1.0. The reference r patria was not used to int erpret this result as normal/abnormal . [facility]ydWRZZJWJUMW3236-71-48 09:00:00 Test Item Value Reference Range Interpretation Comments Neutrophils # (test code = Neutrophils 4.8 1.5-8.1 #) [place] 519362-02-18 09:00:00 Test Item Value Reference Range Interpretation Comments Lymphocytes # (test code = Lymphocytes 0.5 1.0-5.5 #) [facility]tkweqrJLFQRAGCHM8167-51-35 09:00:00 Test Item Value Reference Range Interpretation Comments Monocytes # (test code 0.1 See_Comment [Aut omated message] The = Monocytes #) system which generated this result tra nsmitted reference range : <=0.8. The reference r patria was not used to int erpret this result as normal/abnormal . [place] 519362-02-18 09:00:00 Test Item Value Reference Range Interpretation Comments WBC (test code = WBC) 5.5 3.7-10.4 [place] [address]-02-18 09:00:00 Test Item Value Reference Range Interpretation Comments RBC (test code = RBC) 2.93 4.20-5.40 [place] [address]-02-18 09:00:00 Test Item Value Reference Range Interpretation Comments Hgb (test code = Hgb) 9.8 12.0-16.0 [place] [address]-02-18 09:00:00 Test Item Value Reference Range Interpretation Comments Hct (test code = Hct) 28.8 36.0-48.0 [place] [address]-02-18 09:00:00 Test Item Value Reference Range Interpretation Comments MCV (test code = MCV) 98.4 80.0-98.0 [place] [address]-02-18 09:00:00 Test Item Value Reference Range Interpretation Comments MCH (test code = MCH) 33.4 pg 27.0-31.0 [place] 519362-02-18 09:00:00 Test Item Value Reference Range Interpretation Comments MCHC (test code = MCHC) 34.0 32.0-36.0 [place] [address]-02-18 09:00:00 Test Item Value Reference Range Interpretation Comments RDW (test code = RDW) 18.6 11.5-14.5 [place] [address]-02-18 09:00:00 Test Item Value Reference Range Interpretation Comments Platelet (test code = Platelet) 160 133-450 [place] 519362-02-18 09:00:00 Test Item Value Reference Range Interpretation Comments MPV (test code = MPV) 6.7 7.4-10.4 [facility]2022-02-18 09:00:00 Test Item Value Reference Range Interpretation Comments Ferritin Lvl (test code = Ferritin Lvl) 166 5-204 [facility]2022-02-18 09:00:00 Test Item Value Reference Range Interpretation Comments Iron (test code = Iron) 195 [facility]2022-02-18 09:00:00 Test Item Value Reference Range Interpretation Comments TIBC (test code = TIBC) 315 [place] 712142-02-18 09:00:00 Test Item Value Reference Range Interpretation Comments % Satur Fe (test code = % Satur Fe) 62 [facility]2022-02-18 09:00:00 Test Item Value Reference Range Interpretation Comments Folate Lvl (test code = Folate Lvl) 11.5 [facility]2022-02-18 09:00:00 Test Item Value Reference Range Interpretation Comments Vitamin B12 Lvl (test code = Vitamin 352 B12 Lvl) [facility]2022-02-18 09:00:00 Test Item Value Reference Range Interpretation Comments Albumin Lvl (test code = Albumin Lvl) 2.9 3.5-5.0 [place] [address]-02-18 09:00:00 Test Item Value Reference Range Interpretation Comments RBC Morph (test code = Normal (12/29/21 3:00 RBC Morph) AM) [place] [address]-02-18 09:00:00 Test Item Value Reference Range Interpretation Comments Plt Morph (test code = Normal (12/29/21 3:00 Plt Morph) AM) [place] 519362-02-18 09:00:00 Test Item Value Reference Range Interpretation Comments Segs (test code = Segs) 87.8 45.0-75.0 [place] [address]-02-18 09:00:00 Test Item Value Reference Range Interpretation Comments Lymphocytes (test code = Lymphocytes) 8.9 20.0-40.0 [place] [address]-02-18 09:00:00 Test Item Value Reference Range Interpretation Comments Monocytes (test code = Monocytes) 2.7 2.0-12.0 [place] [address]-02-18 09:00:00 Test Item Value Reference Range Interpretation Comments Eosinophils (test code = 0.1 See_Comment [A utomated message] The Eosinophils) system which ge nerated this result tra nsmitted reference range : <=4.0. The reference r patria was not used to int erpret this result as normal/abnormal . [place] 519362-02-18 09:00:00 Test Item Value Reference Range Interpretation Comments Basophils (test code = 0.5 See_Comment [Aut omated message] The Basophils) system which ge nerated this result tra nsmitted reference range : <=1.0. The reference r patria was not used to int erpret this result as normal/abnormal . [place] 519362-02-18 09:00:00 Test Item Value Reference Range Interpretation Comments Neutrophils # (test code = Neutrophils 4.8 1.5-8.1 #) [place] [address]-02-18 09:00:00 Test Item Value Reference Range Interpretation Comments Lymphocytes # (test code = Lymphocytes 0.5 1.0-5.5 #) [place] [address]-02-18 09:00:00 Test Item Value Reference Range Interpretation Comments Monocytes # (test code 0.1 See_Comment [Aut omated message] The = Monocytes #) system which generated this result tra nsmitted reference range : <=0.8. The reference r patria was not used to int erpret this result as normal/abnormal . [place] 519362-02-18 09:00:00 Test Item Value Reference Range Interpretation Comments WBC (test code = WBC) 5.5 3.7-10.4 [place] [address]-02-18 09:00:00 Test Item Value Reference Range Interpretation Comments RBC (test code = RBC) 2.93 4.20-5.40 [place] [address]-02-18 09:00:00 Test Item Value Reference Range Interpretation Comments Hgb (test code = Hgb) 9.8 12.0-16.0 [place] [address]-02-18 09:00:00 Test Item Value Reference Range Interpretation Comments Hct (test code = Hct) 28.8 36.0-48.0 [place] [address]-02-18 09:00:00 Test Item Value Reference Range Interpretation Comments MCV (test code = MCV) 98.4 80.0-98.0 [place] 519362-02-18 09:00:00 Test Item Value Reference Range Interpretation Comments MCH (test code = MCH) 33.4 pg 27.0-31.0 [place] 519362-02-18 09:00:00 Test Item Value Reference Range Interpretation Comments MCHC (test code = MCHC) 34.0 32.0-36.0 [facility]qzkslzBVHZVZOGDV8123-37-12 09:00:00 Test Item Value Reference Range Interpretation Comments RDW (test code = RDW) 18.6 11.5-14.5 [facility] CenterUaqivtkJJVLNUEINT6576-86-07 09:00:00 Test Item Value Reference Range Interpretation Comments Platelet (test code = Platelet) 160 133-450 [place] 519362-02-18 09:00:00 Test Item Value Reference Range Interpretation Comments MPV (test code = MPV) 6.7 7.4-10.4 [facility]2022-02-18 09:00:00 Test Item Value Reference Range Interpretation Comments Ferritin Lvl (test code = Ferritin Lvl) 166 5-204 [facility]2022-02-18 09:00:00 Test Item Value Reference Range Interpretation Comments Iron (test code = Iron) 195 [facility]2022-02-18 09:00:00 Test Item Value Reference Range Interpretation Comments TIBC (test code = TIBC) 315 [facility]2022-02-18 09:00:00 Test Item Value Reference Range Interpretation Comments % Satur Fe (test code = % Satur Fe) 62 [facility]2022-02-18 09:00:00 Test Item Value Reference Range Interpretation Comments Folate Lvl (test code = Folate Lvl) 11.5 [facility]2022-02-18 09:00:00 Test Item Value Reference Range Interpretation Comments Vitamin B12 Lvl (test code = Vitamin 352 B12 Lvl) [facility]2022-02-18 09:00:00 Test Item Value Reference Range Interpretation Comments Albumin Lvl (test code = Albumin Lvl) 2.9 3.5-5.0 [facility]LnmwalnVDMJDSFKXZ8954-56-01 09:00:00 Test Item Value Reference Range Interpretation Comments RBC Morph (test code = Normal (12/29/21 3:00 RBC Morph) AM) [facility] CenterXdawmfaFJKMAZRAOD6179-41-98 09:00:00 Test Item Value Reference Range Interpretation Comments Plt Morph (test code = Normal (12/29/21 3:00 Plt Morph) AM) [facility] CenterYgdeltpDISHPJDWWR6131-25-64 09:00:00 Test Item Value Reference Range Interpretation Comments Segs (test code = Segs) 87.8 45.0-75.0 [facility]GzsdhcnZCXTRSNYOJ7817-05-18 09:00:00 Test Item Value Reference Range Interpretation Comments Lymphocytes (test code = Lymphocytes) 8.9 20.0-40.0 [facility] CenterCrsyfsiTTGNQFJKQW6486-78-14 09:00:00 Test Item Value Reference Range Interpretation Comments Monocytes (test code = Monocytes) 2.7 2.0-12.0 [facility] CenterQpcqymbCFAXOFOWYR1577-95-29 09:00:00 Test Item Value Reference Range Interpretation Comments Eosinophils (test code = 0.1 See_Comment [A utomated message] The Eosinophils) system which ge nerated this result tra nsmitted reference range : <=4.0. The reference r patria was not used to int erpret this result as normal/abnormal . [facility] CenterAmqukpoIDXMNWQZZO0094-80-65 09:00:00 Test Item Value Reference Range Interpretation Comments Basophils (test code = 0.5 See_Comment [Aut omated message] The Basophils) system which ge nerated this result tra nsmitted reference range : <=1.0. The reference r patria was not used to int erpret this result as normal/abnormal . [facility] CenterWjjwsikTPRMUDLIFU4224-72-88 09:00:00 Test Item Value Reference Range Interpretation Comments Neutrophils # (test code = Neutrophils 4.8 1.5-8.1 #) [facility]JyhnwioYXLWEBAJXK9966-85-72 09:00:00 Test Item Value Reference Range Interpretation Comments Lymphocytes # (test code = Lymphocytes 0.5 1.0-5.5 #) [place] 519362-02-18 09:00:00 Test Item Value Reference Range Interpretation Comments Monocytes # (test code 0.1 See_Comment [Aut omated message] The = Monocytes #) system which generated this result tra nsmitted reference range : <=0.8. The reference r patria was not used to int erpret this result as normal/abnormal . [place] 519362-02-18 09:00:00 Test Item Value Reference Range Interpretation Comments WBC (test code = WBC) 5.5 3.7-10.4 [place] [address]-02-18 09:00:00 Test Item Value Reference Range Interpretation Comments RBC (test code = RBC) 2.93 4.20-5.40 [place] 519362-02-18 09:00:00 Test Item Value Reference Range Interpretation Comments Hgb (test code = Hgb) 9.8 12.0-16.0 [place] [address]-02-18 09:00:00 Test Item Value Reference Range Interpretation Comments Hct (test code = Hct) 28.8 36.0-48.0 [place] [address]-02-18 09:00:00 Test Item Value Reference Range Interpretation Comments MCV (test code = MCV) 98.4 80.0-98.0 [place] [address]-02-18 09:00:00 Test Item Value Reference Range Interpretation Comments MCH (test code = MCH) 33.4 pg 27.0-31.0 [place] [address]-02-18 09:00:00 Test Item Value Reference Range Interpretation Comments MCHC (test code = MCHC) 34.0 32.0-36.0 [place] [address]-02-18 09:00:00 Test Item Value Reference Range Interpretation Comments RDW (test code = RDW) 18.6 11.5-14.5 [place] 519362-02-18 09:00:00 Test Item Value Reference Range Interpretation Comments Platelet (test code = Platelet) 160 133-450 [place] 519362-02-18 09:00:00 Test Item Value Reference Range Interpretation Comments MPV (test code = MPV) 6.7 7.4-10.4 [facility]2022-02-18 09:00:00 Test Item Value Reference Range Interpretation Comments Ferritin Lvl (test code = Ferritin Lvl) 166 5-204 [facility]2022-02-18 09:00:00 Test Item Value Reference Range Interpretation Comments Iron (test code = Iron) 195 [facility]2022-02-18 09:00:00 Test Item Value Reference Range Interpretation Comments TIBC (test code = TIBC) 315 [facility]2022-02-18 09:00:00 Test Item Value Reference Range Interpretation Comments % Satur Fe (test code = % Satur Fe) 62 [facility]2022-02-18 09:00:00 Test Item Value Reference Range Interpretation Comments Folate Lvl (test code = Folate Lvl) 11.5 [facility]2022-02-18 09:00:00 Test Item Value Reference Range Interpretation Comments Vitamin B12 Lvl (test code = Vitamin 352 B12 Lvl) [facility]2022-02-18 09:00:00 Test Item Value Reference Range Interpretation Comments Albumin Lvl (test code = Albumin Lvl) 2.9 3.5-5.0 [place] 519362-02-18 09:00:00 Test Item Value Reference Range Interpretation Comments RBC Morph (test code = Normal (12/29/21 3:00 RBC Morph) AM) [place] 519362-02-18 09:00:00 Test Item Value Reference Range Interpretation Comments Plt Morph (test code = Normal (12/29/21 3:00 Plt Morph) AM) [place] [address]-02-18 09:00:00 Test Item Value Reference Range Interpretation Comments Segs (test code = Segs) 87.8 45.0-75.0 [place] 519362-02-18 09:00:00 Test Item Value Reference Range Interpretation Comments Lymphocytes (test code = Lymphocytes) 8.9 20.0-40.0 [place] 519362-02-18 09:00:00 Test Item Value Reference Range Interpretation Comments Monocytes (test code = Monocytes) 2.7 2.0-12.0 [place] [address]-02-18 09:00:00 Test Item Value Reference Range Interpretation Comments Eosinophils (test code = 0.1 See_Comment [A utomated message] The Eosinophils) system which ge nerated this result tra nsmitted reference range : <=4.0. The reference r patria was not used to int erpret this result as normal/abnormal . [place] 519362-02-18 09:00:00 Test Item Value Reference Range Interpretation Comments Basophils (test code = 0.5 See_Comment [Aut omated message] The Basophils) system which ge nerated this result tra nsmitted reference range : <=1.0. The reference r patria was not used to int erpret this result as normal/abnormal . [place] 519362-02-18 09:00:00 Test Item Value Reference Range Interpretation Comments Neutrophils # (test code = Neutrophils 4.8 1.5-8.1 #) [place] [address]-02-18 09:00:00 Test Item Value Reference Range Interpretation Comments Lymphocytes # (test code = Lymphocytes 0.5 1.0-5.5 #) [address]02-18 09:00:00 Test Item Value Reference Range Interpretation Comments Monocytes # (test code 0.1 See_Comment [Aut omated message] The = Monocytes #) system which generated this result tra nsmitted reference range : <=0.8. The reference r patria was not used to int erpret this result as normal/abnormal . [place] [address]-02-18 09:00:00 Test Item Value Reference Range Interpretation Comments WBC (test code = WBC) 5.5 3.7-10.4 [place] [address]-02-18 09:00:00 Test Item Value Reference Range Interpretation Comments RBC (test code = RBC) 2.93 4.20-5.40 [place] [address]-02-18 09:00:00 Test Item Value Reference Range Interpretation Comments Hgb (test code = Hgb) 9.8 12.0-16.0 [place] [address]-02-18 09:00:00 Test Item Value Reference Range Interpretation Comments Hct (test code = Hct) 28.8 36.0-48.0 [place] [address]-02-18 09:00:00 Test Item Value Reference Range Interpretation Comments MCV (test code = MCV) 98.4 80.0-98.0 [place] [address]-02-18 09:00:00 Test Item Value Reference Range Interpretation Comments MCH (test code = MCH) 33.4 pg 27.0-31.0 [place] [address]-02-18 09:00:00 Test Item Value Reference Range Interpretation Comments MCHC (test code = MCHC) 34.0 32.0-36.0 [place] [address]-02-18 09:00:00 Test Item Value Reference Range Interpretation Comments RDW (test code = RDW) 18.6 11.5-14.5 [facility]RevcyzuOCFJDDAOFY4873-22-23 09:00:00 Test Item Value Reference Range Interpretation Comments Platelet (test code = Platelet) 160 133-450 [facility] CenterLnndbteADRMOXEUPO6224-02-25 09:00:00 Test Item Value Reference Range Interpretation Comments MPV (test code = MPV) 6.7 7.4-10.4 [facility]2022-02-18 09:00:00 Test Item Value Reference Range Interpretation Comments Ferritin Lvl (test code = Ferritin Lvl) 166 5-204 [facility]2022-02-18 09:00:00 Test Item Value Reference Range Interpretation Comments Iron (test code = Iron) 195 [facility]2022-02-18 09:00:00 Test Item Value Reference Range Interpretation Comments TIBC (test code = TIBC) 315 [facility]2022-02-18 09:00:00 Test Item Value Reference Range Interpretation Comments % Satur Fe (test code = % Satur Fe) 62 [facility]2022-02-18 09:00:00 Test Item Value Reference Range Interpretation Comments Folate Lvl (test code = Folate Lvl) 11.5 [facility]2022-02-18 09:00:00 Test Item Value Reference Range Interpretation Comments Vitamin B12 Lvl (test code = Vitamin 352 B12 Lvl) [facility]2022-02-18 09:00:00 Test Item Value Reference Range Interpretation Comments Albumin Lvl (test code = Albumin Lvl) 2.9 3.5-5.0 [facility] CenterLvafmwmSSOKPILOHW1756-13-03 09:00:00 Test Item Value Reference Range Interpretation Comments RBC Morph (test code = Normal (12/29/21 3:00 RBC Morph) AM) [facility] CenterQhjbrygYQZRTZZINU4365-66-84 09:00:00 Test Item Value Reference Range Interpretation Comments Plt Morph (test code = Normal (12/29/21 3:00 Plt Morph) AM) [facility] CenterZfhjbbeJVAOFOEMRB4361-45-75 09:00:00 Test Item Value Reference Range Interpretation Comments Segs (test code = Segs) 87.8 45.0-75.0 [place] [address]-02-18 09:00:00 Test Item Value Reference Range Interpretation Comments Lymphocytes (test code = Lymphocytes) 8.9 20.0-40.0 [place] [address]-02-18 09:00:00 Test Item Value Reference Range Interpretation Comments Monocytes (test code = Monocytes) 2.7 2.0-12.0 [place] [address]-02-18 09:00:00 Test Item Value Reference Range Interpretation Comments Eosinophils (test code = 0.1 See_Comment [A utomated message] The Eosinophils) system which ge nerated this result tra nsmitted reference range : <=4.0. The reference r patria was not used to int erpret this result as normal/abnormal . [address]02-18 09:00:00 Test Item Value Reference Range Interpretation Comments Basophils (test code = 0.5 See_Comment [Aut omated message] The Basophils) system which ge nerated this result tra nsmitted reference range : <=1.0. The reference r patria was not used to int erpret this result as normal/abnormal . [place] [address]-02-18 09:00:00 Test Item Value Reference Range Interpretation Comments Neutrophils # (test code = Neutrophils 4.8 1.5-8.1 #) [place] [address]-02-18 09:00:00 Test Item Value Reference Range Interpretation Comments Lymphocytes # (test code = Lymphocytes 0.5 1.0-5.5 #) [place] [address]-02-18 09:00:00 Test Item Value Reference Range Interpretation Comments Monocytes # (test code 0.1 See_Comment [Aut omated message] The = Monocytes #) system which generated this result tra nsmitted reference range : <=0.8. The reference r patria was not used to int erpret this result as normal/abnormal . [place] [address]-02-18 09:00:00 Test Item Value Reference Range Interpretation Comments WBC (test code = WBC) 5.5 3.7-10.4 [place] [address]-02-18 09:00:00 Test Item Value Reference Range Interpretation Comments RBC (test code = RBC) 2.93 4.20-5.40 [place] [address]-02-18 09:00:00 Test Item Value Reference Range Interpretation Comments Hgb (test code = Hgb) 9.8 12.0-16.0 [place] 519362-02-18 09:00:00 Test Item Value Reference Range Interpretation Comments Hct (test code = Hct) 28.8 36.0-48.0 [place] 519362-02-18 09:00:00 Test Item Value Reference Range Interpretation Comments MCV (test code = MCV) 98.4 80.0-98.0 [place] 519362-02-18 09:00:00 Test Item Value Reference Range Interpretation Comments MCH (test code = MCH) 33.4 pg 27.0-31.0 [place]362-02-18 09:00:00 Test Item Value Reference Range Interpretation Comments MCHC (test code = MCHC) 34.0 32.0-36.0 [place] 519362-02-18 09:00:00 Test Item Value Reference Range Interpretation Comments RDW (test code = RDW) 18.6 11.5-14.5 [place] 519362-02-18 09:00:00 Test Item Value Reference Range Interpretation Comments Platelet (test code = Platelet) 160 133-450 [place] 519362-02-18 09:00:00 Test Item Value Reference Range Interpretation Comments MPV (test code = MPV) 6.7 7.4-10.4 [facility]2022-02-18 09:00:00 Test Item Value Reference Range Interpretation Comments Ferritin Lvl (test code = Ferritin Lvl) 166 5-204 [facility]2022-02-18 09:00:00 Test Item Value Reference Range Interpretation Comments Iron (test code = Iron) 195 [facility]2022-02-18 09:00:00 Test Item Value Reference Range Interpretation Comments TIBC (test code = TIBC) 315 [facility]2022-02-18 09:00:00 Test Item Value Reference Range Interpretation Comments % Satur Fe (test code = % Satur Fe) 62 [facility]2022-02-18 09:00:00 Test Item Value Reference Range Interpretation Comments Folate Lvl (test code = Folate Lvl) 11.5 [place] 712142-02-18 09:00:00 Test Item Value Reference Range Interpretation Comments Vitamin B12 Lvl (test code = Vitamin 352 B12 Lvl) [facility]2022-02-18 09:00:00 Test Item Value Reference Range Interpretation Comments Albumin Lvl (test code = Albumin Lvl) 2.9 3.5-5.0 [place] 519362-02-18 09:00:00 Test Item Value Reference Range Interpretation Comments RBC Morph (test code = Normal (12/29/21 3:00 RBC Morph) AM) [facility]SU1814[facility] 09:00:00 Test Item Value Reference Range Interpretation Comments Plt Morph (test code = Normal (12/29/21 3:00 Plt Morph) AM) [place] 519362-02-18 09:00:00 Test Item Value Reference Range Interpretation Comments Segs (test code = Segs) 87.8 45.0-75.0 [place] 519362-02-18 09:00:00 Test Item Value Reference Range Interpretation Comments Lymphocytes (test code = Lymphocytes) 8.9 20.0-40.0 [place] 519362-02-18 09:00:00 Test Item Value Reference Range Interpretation Comments Monocytes (test code = Monocytes) 2.7 2.0-12.0 [place] 519362-02-18 09:00:00 Test Item Value Reference Range Interpretation Comments Eosinophils (test code = 0.1 See_Comment [A utomated message] The Eosinophils) system which ge nerated this result tra nsmitted reference range : <=4.0. The reference r patria was not used to int erpret this result as normal/abnormal . [facility]OdlailpJAJVWSOONN2320-68-51 09:00:00 Test Item Value Reference Range Interpretation Comments Basophils (test code = 0.5 See_Comment [Aut omated message] The Basophils) system which ge nerated this result tra nsmitted reference range : <=1.0. The reference r patria was not used to int erpret this result as normal/abnormal . [place] 519362-02-18 09:00:00 Test Item Value Reference Range Interpretation Comments Neutrophils # (test code = Neutrophils 4.8 1.5-8.1 #) [facility]BnleaguOEORVJCXQN4236-42-49 09:00:00 Test Item Value Reference Range Interpretation Comments Lymphocytes # (test code = Lymphocytes 0.5 1.0-5.5 #) [place] 519362-02-18 09:00:00 Test Item Value Reference Range Interpretation Comments Monocytes # (test code 0.1 See_Comment [Aut omated message] The = Monocytes #) system which generated this result tra nsmitted reference range : <=0.8. The reference r patria was not used to int erpret this result as normal/abnormal . [place] 519362-02-18 09:00:00 Test Item Value Reference Range Interpretation Comments WBC (test code = WBC) 5.5 3.7-10.4 [place] 519362-02-18 09:00:00 Test Item Value Reference Range Interpretation Comments RBC (test code = RBC) 2.93 4.20-5.40 [place] 519362-02-18 09:00:00 Test Item Value Reference Range Interpretation Comments Hgb (test code = Hgb) 9.8 12.0-16.0 [place] 519362-02-18 09:00:00 Test Item Value Reference Range Interpretation Comments Hct (test code = Hct) 28.8 36.0-48.0 [place] [address]-02-18 09:00:00 Test Item Value Reference Range Interpretation Comments MCV (test code = MCV) 98.4 80.0-98.0 [place] 519362-02-18 09:00:00 Test Item Value Reference Range Interpretation Comments MCH (test code = MCH) 33.4 pg 27.0-31.0 [place] 519362-02-18 09:00:00 Test Item Value Reference Range Interpretation Comments MCHC (test code = MCHC) 34.0 32.0-36.0 [place] 519362-02-18 09:00:00 Test Item Value Reference Range Interpretation Comments RDW (test code = RDW) 18.6 11.5-14.5 [place] 519362-02-18 09:00:00 Test Item Value Reference Range Interpretation Comments Platelet (test code = Platelet) 160 133-450 [place] 519362-02-18 09:00:00 Test Item Value Reference Range Interpretation Comments MPV (test code = MPV) 6.7 7.4-10.4 [facility]2022-02-18 09:00:00 Test Item Value Reference Range Interpretation Comments Ferritin Lvl (test code = Ferritin Lvl) 166 5-204 [facility]2022-02-18 09:00:00 Test Item Value Reference Range Interpretation Comments Iron (test code = Iron) 195 [facility]2022-02-18 09:00:00 Test Item Value Reference Range Interpretation Comments TIBC (test code = TIBC) 315 [facility]2022-02-18 09:00:00 Test Item Value Reference Range Interpretation Comments % Satur Fe (test code = % Satur Fe) 62 [facility]2022-02-18 09:00:00 Test Item Value Reference Range Interpretation Comments Folate Lvl (test code = Folate Lvl) 11.5 [facility]2022-02-18 09:00:00 Test Item Value Reference Range Interpretation Comments Vitamin B12 Lvl (test code = Vitamin 352 B12 Lvl) [facility]2022-02-18 09:00:00 Test Item Value Reference Range Interpretation Comments Albumin Lvl (test code = Albumin Lvl) 2.9 3.5-5.0 [place] 519362-02-18 09:00:00 Test Item Value Reference Range Interpretation Comments RBC Morph (test code = Normal (12/29/21 3:00 RBC Morph) AM) [facility]VqrsagsSYUQYTGWRW1478-39-02 09:00:00 Test Item Value Reference Range Interpretation Comments Plt Morph (test code = Normal (12/29/21 3:00 Plt Morph) AM) [facility] CenterWicbwchGKMSYDLGXO4772-62-27 09:00:00 Test Item Value Reference Range Interpretation Comments Segs (test code = Segs) 87.8 45.0-75.0 [place] 519362-02-18 09:00:00 Test Item Value Reference Range Interpretation Comments Lymphocytes (test code = Lymphocytes) 8.9 20.0-40.0 [place] 519362-02-18 09:00:00 Test Item Value Reference Range Interpretation Comments Monocytes (test code = Monocytes) 2.7 2.0-12.0 [place] 519362-02-18 09:00:00 Test Item Value Reference Range Interpretation Comments Eosinophils (test code = 0.1 See_Comment [A utomated message] The Eosinophils) system which ge nerated this result tra nsmitted reference range : <=4.0. The reference r patria was not used to int erpret this result as normal/abnormal . [place] 519362-02-18 09:00:00 Test Item Value Reference Range Interpretation Comments Basophils (test code = 0.5 See_Comment [Aut omated message] The Basophils) system which ge nerated this result tra nsmitted reference range : <=1.0. The reference r patria was not used to int erpret this result as normal/abnormal . [place] 519362-02-18 09:00:00 Test Item Value Reference Range Interpretation Comments Neutrophils # (test code = Neutrophils 4.8 1.5-8.1 #) [place] 519362-02-18 09:00:00 Test Item Value Reference Range Interpretation Comments Lymphocytes # (test code = Lymphocytes 0.5 1.0-5.5 #) [place] 519362-02-18 09:00:00 Test Item Value Reference Range Interpretation Comments Monocytes # (test code 0.1 See_Comment [Aut omated message] The = Monocytes #) system which generated this result tra nsmitted reference range : <=0.8. The reference r patria was not used to int erpret this result as normal/abnormal . [place] 519362-02-18 09:00:00 Test Item Value Reference Range Interpretation Comments WBC (test code = WBC) 5.5 3.7-10.4 [place] 519362-02-18 09:00:00 Test Item Value Reference Range Interpretation Comments RBC (test code = RBC) 2.93 4.20-5.40 [place] [address]-02-18 09:00:00 Test Item Value Reference Range Interpretation Comments Hgb (test code = Hgb) 9.8 12.0-16.0 [place] [address]-02-18 09:00:00 Test Item Value Reference Range Interpretation Comments Hct (test code = Hct) 28.8 36.0-48.0 [place] [address]-02-18 09:00:00 Test Item Value Reference Range Interpretation Comments MCV (test code = MCV) 98.4 80.0-98.0 [facility] CenterLaawodlNGNRCGIWGT4285-14-87 09:00:00 Test Item Value Reference Range Interpretation Comments MCH (test code = MCH) 33.4 pg 27.0-31.0 [facility] CenterCyvtnikUTWWACMLOR5285-37-45 09:00:00 Test Item Value Reference Range Interpretation Comments MCHC (test code = MCHC) 34.0 32.0-36.0 [facility] CenterLuoojkuWIZZAHZDMK5725-78-42 09:00:00 Test Item Value Reference Range Interpretation Comments RDW (test code = RDW) 18.6 11.5-14.5 [facility] CenterVbmvtnsHSEPFAOMRC8803-92-24 09:00:00 Test Item Value Reference Range Interpretation Comments Platelet (test code = Platelet) 160 133-450 [facility] CenterSpljceyTFFCXTQRZZ5314-22-36 09:00:00 Test Item Value Reference Range Interpretation Comments MPV (test code = MPV) 6.7 7.4-10.4 [facility]2022-02-18 09:00:00 Test Item Value Reference Range Interpretation Comments Ferritin Lvl (test code = Ferritin Lvl) 166 5-204 [facility]2022-02-18 09:00:00 Test Item Value Reference Range Interpretation Comments Iron (test code = Iron) 195 [facility]2022-02-18 09:00:00 Test Item Value Reference Range Interpretation Comments TIBC (test code = TIBC) 315 [facility]2022-02-18 09:00:00 Test Item Value Reference Range Interpretation Comments % Satur Fe (test code = % Satur Fe) 62 [facility]2022-02-18 09:00:00 Test Item Value Reference Range Interpretation Comments Folate Lvl (test code = Folate Lvl) 11.5 [facility]2022-02-18 09:00:00 Test Item Value Reference Range Interpretation Comments Vitamin B12 Lvl (test code = Vitamin 352 B12 Lvl) [facility]2022-02-18 09:00:00 Test Item Value Reference Range Interpretation Comments Albumin Lvl (test code = Albumin Lvl) 2.9 3.5-5.0 [facility] CenterJszphweEEYPFVFBRG6024-58-57 09:00:00 Test Item Value Reference Range Interpretation Comments RBC Morph (test code = Normal (12/29/21 3:00 RBC Morph) AM) [place] 519362-02-18 09:00:00 Test Item Value Reference Range Interpretation Comments Plt Morph (test code = Normal (12/29/21 3:00 Plt Morph) AM) [place] 519362-02-18 09:00:00 Test Item Value Reference Range Interpretation Comments Segs (test code = Segs) 87.8 45.0-75.0 [place] 519362-02-18 09:00:00 Test Item Value Reference Range Interpretation Comments Lymphocytes (test code = Lymphocytes) 8.9 20.0-40.0 [place] [address]-02-18 09:00:00 Test Item Value Reference Range Interpretation Comments Monocytes (test code = Monocytes) 2.7 2.0-12.0 [place] [address]-02-18 09:00:00 Test Item Value Reference Range Interpretation Comments Eosinophils (test code = 0.1 See_Comment [A utomated message] The Eosinophils) system which ge nerated this result tra nsmitted reference range : <=4.0. The reference r patria was not used to int erpret this result as normal/abnormal . [place] 519362-02-18 09:00:00 Test Item Value Reference Range Interpretation Comments Basophils (test code = 0.5 See_Comment [Aut omated message] The Basophils) system which ge nerated this result tra nsmitted reference range : <=1.0. The reference r patria was not used to int erpret this result as normal/abnormal . [place] 519362-02-18 09:00:00 Test Item Value Reference Range Interpretation Comments Neutrophils # (test code = Neutrophils 4.8 1.5-8.1 #) [place] [address]-02-18 09:00:00 Test Item Value Reference Range Interpretation Comments Lymphocytes # (test code = Lymphocytes 0.5 1.0-5.5 #) [place] 519362-02-18 09:00:00 Test Item Value Reference Range Interpretation Comments Monocytes # (test code 0.1 See_Comment [Aut omated message] The = Monocytes #) system which generated this result tra nsmitted reference range : <=0.8. The reference r patria was not used to int erpret this result as normal/abnormal . [facility] CenterNccmphpGZOGCNGVBP3116-43-15 09:00:00 Test Item Value Reference Range Interpretation Comments WBC (test code = WBC) 5.5 3.7-10.4 [place] 519362-02-18 09:00:00 Test Item Value Reference Range Interpretation Comments RBC (test code = RBC) 2.93 4.20-5.40 [place] 519362-02-18 09:00:00 Test Item Value Reference Range Interpretation Comments Hgb (test code = Hgb) 9.8 12.0-16.0 [place] 519362-02-18 09:00:00 Test Item Value Reference Range Interpretation Comments Hct (test code = Hct) 28.8 36.0-48.0 [facility] CenterUpdjgvuOVCYZRVQQI5469-16-61 09:00:00 Test Item Value Reference Range Interpretation Comments MCV (test code = MCV) 98.4 80.0-98.0 [place] 519362-02-18 09:00:00 Test Item Value Reference Range Interpretation Comments MCH (test code = MCH) 33.4 pg 27.0-31.0 [facility] CenterWmbelnxJTHSWBAIQZ1602-94-65 09:00:00 Test Item Value Reference Range Interpretation Comments MCHC (test code = MCHC) 34.0 32.0-36.0 [facility] CenterUtbbvjvGLTJBGNLSA6785-16-13 09:00:00 Test Item Value Reference Range Interpretation Comments RDW (test code = RDW) 18.6 11.5-14.5 [place] 519362-02-18 09:00:00 Test Item Value Reference Range Interpretation Comments Platelet (test code = Platelet) 160 133-450 [place] 519362-02-18 09:00:00 Test Item Value Reference Range Interpretation Comments MPV (test code = MPV) 6.7 7.4-10.4 [facility]2022-02-18 09:00:00 Test Item Value Reference Range Interpretation Comments Ferritin Lvl (test code = Ferritin Lvl) 166 5-204 [facility]2022-02-18 09:00:00 Test Item Value Reference Range Interpretation Comments Iron (test code = Iron) 195 [facility]2022-02-18 09:00:00 Test Item Value Reference Range Interpretation Comments TIBC (test code = TIBC) 315 [facility]2022-02-18 09:00:00 Test Item Value Reference Range Interpretation Comments % Satur Fe (test code = % Satur Fe) 62 [facility]2022-02-18 09:00:00 Test Item Value Reference Range Interpretation Comments Folate Lvl (test code = Folate Lvl) 11.5 [facility]2022-02-18 09:00:00 Test Item Value Reference Range Interpretation Comments Vitamin B12 Lvl (test code = Vitamin 352 B12 Lvl) [facility] 09:00:00 Test Item Value Reference Range Interpretation Comments Albumin Lvl (test code = Albumin Lvl) 2.9 3.5-5.0 [facility] CenterTfwsmxzZMVMHKVQKU3293-94-22 09:00:00 Test Item Value Reference Range Interpretation Comments RBC Morph (test code = Normal (12/29/21 3:00 RBC Morph) AM) [place] 519362-02-18 09:00:00 Test Item Value Reference Range Interpretation Comments Plt Morph (test code = Normal (12/29/21 3:00 Plt Morph) AM) [place] 519362-02-18 09:00:00 Test Item Value Reference Range Interpretation Comments Segs (test code = Segs) 87.8 45.0-75.0 [place] 519362-02-18 09:00:00 Test Item Value Reference Range Interpretation Comments Lymphocytes (test code = Lymphocytes) 8.9 20.0-40.0 [place] 519362-02-18 09:00:00 Test Item Value Reference Range Interpretation Comments Monocytes (test code = Monocytes) 2.7 2.0-12.0 [place] [address]-02-18 09:00:00 Test Item Value Reference Range Interpretation Comments Eosinophils (test code = 0.1 See_Comment [A utomated message] The Eosinophils) system which ge nerated this result tra nsmitted reference range : <=4.0. The reference r patria was not used to int erpret this result as normal/abnormal . [facility] CenterYcfvnfqKMOPHVUVDV7464-02-50 09:00:00 Test Item Value Reference Range Interpretation Comments Basophils (test code = 0.5 See_Comment [Aut omated message] The Basophils) system which ge nerated this result tra nsmitted reference range : <=1.0. The reference r patria was not used to int erpret this result as normal/abnormal . [facility] CenterLsspzdbZJLJFXRKDF0626-41-65 09:00:00 Test Item Value Reference Range Interpretation Comments Neutrophils # (test code = Neutrophils 4.8 1.5-8.1 #) [facility] CenterLkqjgskCPFJODSWDJ5750-04-21 09:00:00 Test Item Value Reference Range Interpretation Comments Lymphocytes # (test code = Lymphocytes 0.5 1.0-5.5 #) [facility] CenterZijjznqYAHZFKICCB2413-54-79 09:00:00 Test Item Value Reference Range Interpretation Comments Monocytes # (test code 0.1 See_Comment [Aut omated message] The = Monocytes #) system which generated this result tra nsmitted reference range : <=0.8. The reference r patria was not used to int erpret this result as normal/abnormal . [facility] CenterSinxhfzMKDZDAXCMR5800-33-04 09:00:00 Test Item Value Reference Range Interpretation Comments WBC (test code = WBC) 5.5 3.7-10.4 [facility] CenterXqseesiZLEUCARYFY3607-67-86 09:00:00 Test Item Value Reference Range Interpretation Comments RBC (test code = RBC) 2.93 4.20-5.40 [facility] CenterJlqzxphBFLSMKCGTK4578-91-27 09:00:00 Test Item Value Reference Range Interpretation Comments Hgb (test code = Hgb) 9.8 12.0-16.0 [place] 519362-02-18 09:00:00 Test Item Value Reference Range Interpretation Comments Hct (test code = Hct) 28.8 36.0-48.0 [place] 519362-02-18 09:00:00 Test Item Value Reference Range Interpretation Comments MCV (test code = MCV) 98.4 80.0-98.0 [place] 519362-02-18 09:00:00 Test Item Value Reference Range Interpretation Comments MCH (test code = MCH) 33.4 pg 27.0-31.0 [facility] CenterMbgjsxlJRIVWROLSC4047-17-38 09:00:00 Test Item Value Reference Range Interpretation Comments MCHC (test code = MCHC) 34.0 32.0-36.0 [place] 519362-02-18 09:00:00 Test Item Value Reference Range Interpretation Comments RDW (test code = RDW) 18.6 11.5-14.5 [place] [address]-02-18 09:00:00 Test Item Value Reference Range Interpretation Comments Platelet (test code = Platelet) 160 133-450 [place] 519362-02-18 09:00:00 Test Item Value Reference Range Interpretation Comments MPV (test code = MPV) 6.7 7.4-10.4 [place] 519362-02-18 06:58:49 Test Item Value Reference Range Interpretation Comments Eosinophils # (test code 0.1 See_Comment [A utomated message] The = Eosinophils #) system [employer] generated this result tra nsmitted reference range : <=0.5. The reference r patria was not used to int erpret this result as normal/abnormal . [facility] CenterXbfghzzHNDRKIYQMF5902-74-73 06:58:49 Test Item Value Reference Range Interpretation Comments Macrocyte (test code = 1+ *ABN*(12/29/21 Macrocyte) 12:58 AM) [place] 519362-02-18 06:58:49 Test Item Value Reference Range Interpretation Comments Eosinophils # (test code 0.1 See_Comment [A utomated message] The = Eosinophils #) system [employer] generated this result tra nsmitted reference range : <=0.5. The reference r patria was not used to int erpret this result as normal/abnormal . [place] 519362-02-18 06:58:49 Test Item Value Reference Range Interpretation Comments Macrocyte (test code = 1+ *ABN*(12/29/21 Macrocyte) 12:58 AM) [place] [address]-02-18 06:58:49 Test Item Value Reference Range Interpretation Comments Eosinophils # (test code 0.1 See_Comment [A utomated message] The = Eosinophils #) system [employer] generated this result tra nsmitted reference range : <=0.5. The reference r patria was not used to int erpret this result as normal/abnormal . [place] 519362-02-18 06:58:49 Test Item Value Reference Range Interpretation Comments Macrocyte (test code = 1+ *ABN*(12/29/21 Macrocyte) 12:58 AM) [place] 519362-02-18 06:58:49 Test Item Value Reference Range Interpretation Comments Eosinophils # (test code 0.1 See_Comment [A utomated message] The = Eosinophils #) system [facility] [employer] generated this result tra nsmitted reference range : <=0.5. The reference r patria was not used to int erpret this result as normal/abnormal . [facility] CenterCpaalxhKNATZIKVGK3681-18-03 06:58:49 Test Item Value Reference Range Interpretation Comments Macrocyte (test code = 1+ *ABN*(12/29/21 Macrocyte) 12:58 AM) [place] 519362-02-18 06:58:49 Test Item Value Reference Range Interpretation Comments Eosinophils # (test code 0.1 See_Comment [A utomated message] The = Eosinophils #) system [employer] generated this result tra nsmitted reference range : <=0.5. The reference r patria was not used to int erpret this result as normal/abnormal . [place] 519362-02-18 06:58:49 Test Item Value Reference Range Interpretation Comments Macrocyte (test code = 1+ *ABN*(12/29/21 Macrocyte) 12:58 AM) [place] 519362-02-18 06:58:49 Test Item Value Reference Range Interpretation Comments Eosinophils # (test code 0.1 See_Comment [A utomated message] The = Eosinophils #) system [employer] generated this result tra nsmitted reference range : <=0.5. The reference r patria was not used to int erpret this result as normal/abnormal . [facility] CenterCyfuikbVWANDMFFKN3578-27-05 06:58:49 Test Item Value Reference Range Interpretation Comments Macrocyte (test code = 1+ *ABN*(12/29/21 Macrocyte) 12:58 AM) [place] 519362-02-18 06:58:49 Test Item Value Reference Range Interpretation Comments Eosinophils # (test code 0.1 See_Comment [A utomated message] The = Eosinophils #) system [facility] [employer] generated this result tra nsmitted reference range : <=0.5. The reference r patria was not used to int erpret this result as normal/abnormal . [place] 519362-02-18 06:58:49 Test Item Value Reference Range Interpretation Comments Macrocyte (test code = 1+ *ABN*(12/29/21 Macrocyte) 12:58 AM) [place] 519362-02-18 06:58:49 Test Item Value Reference Range Interpretation Comments Eosinophils # (test code 0.1 See_Comment [A utomated message] The = Eosinophils #) system [employer] generated this result tra nsmitted reference range : <=0.5. The reference r patria was not used to int erpret this result as normal/abnormal . [place] 519362-02-18 06:58:49 Test Item Value Reference Range Interpretation Comments Macrocyte (test code = 1+ *ABN*(12/29/21 Macrocyte) 12:58 AM) [place] 519362-02-18 06:58:49 Test Item Value Reference Range Interpretation Comments Eosinophils # (test code 0.1 See_Comment [A utomated message] The = Eosinophils #) system [employer] generated this result tra nsmitted reference range : <=0.5. The reference r patria was not used to int erpret this result as normal/abnormal . [facility] CenterLiydyxuKJZINXQMWJ2677-04-61 06:58:49 Test Item Value Reference Range Interpretation Comments Macrocyte (test code = 1+ *ABN*(12/29/21 Macrocyte) 12:58 AM) [place] [address]-02-18 06:58:49 Test Item Value Reference Range Interpretation Comments Eosinophils # (test code 0.1 See_Comment [A utomated message] The = Eosinophils #) system [employer] generated this result tra nsmitted reference range : <=0.5. The reference r patria was not used to int erpret this result as normal/abnormal . [place] 519362-02-18 06:58:49 Test Item Value Reference Range Interpretation Comments Macrocyte (test code = 1+ *ABN*(12/29/21 Macrocyte) 12:58 AM) [place] 519362-02-18 06:58:49 Test Item Value Reference Range Interpretation Comments Eosinophils # (test code 0.1 See_Comment [A utomated message] The = Eosinophils #) system [employer] generated this result tra nsmitted reference range : <=0.5. The reference r patria was not used to int erpret this result as normal/abnormal . [facility] CenterMlchrntVAPTXNHJGC9870-50-23 06:58:49 Test Item Value Reference Range Interpretation Comments Macrocyte (test code = 1+ *ABN*(12/29/21 Macrocyte) 12:58 AM) [place] 519362-02-18 06:58:49 Test Item Value Reference Range Interpretation Comments Eosinophils # (test code 0.1 See_Comment [A utomated message] The = Eosinophils #) system whic h generated this result tra nsmitted reference range : <=0.5. The reference r patria was not used to int erpret this result as normal/abnormal . [place] 519362-02-18 06:58:49 Test Item Value Reference Range Interpretation Comments Macrocyte (test code = 1+ *ABN*(12/29/21 Macrocyte) 12:58 AM) [facility]2022-02-18 05:48:00 Test Item Value Reference Range Interpretation Comments Magnesium Lvl (test code = Magnesium 2.0 1.8-2.4 Lvl) [id number] 05:48:00 Test Item Value Reference Range Interpretation Comments ACT (TEG) Rapid (test code = ACT (TEG) 105 s 86-118 Rapid) [place] 519362-02-18 05:48:00 Test Item Value Reference Range Interpretation Comments Split Point Rapid (test code = Split 0.4 min Point Rapid) [place] 519362-02-18 05:48:00 Test Item Value Reference Range Interpretation Comments R-time Rapid (test code = R-time 0.6 min 0.4-0.7 Rapid) [place] [address]-02-18 05:48:00 Test Item Value Reference Range Interpretation Comments K-time Rapid (test code = K-time 1.2 min 0.6-2.3 Rapid) [place] 519362-02-18 05:48:00 Test Item Value Reference Range Interpretation Comments Angle Rapid (test code = Angle 76 degrees 64-80 Rapid) [place] 519362-02-18 05:48:00 Test Item Value Reference Range Interpretation Comments Max Amplitude Rapid (test code = Max 60 mm 52-71 Amplitude Rapid) [address]02-18 05:48:00 Test Item Value Reference Range Interpretation Comments G-value Rapid (test code = G-value 7.4 5.0-11.6 Rapid) [place] 519362-02-18 05:48:00 Test Item Value Reference Range Interpretation Comments Estimated % Lysis Rapid 0.0 See_Comment [Au tomated message] The (test code = Estimated syste m which generated % Lysis Rapid) this result t ransmitted reference range : <=7.5. The reference r patria was not used to int erpret this result as normal/abnormal . [place] 519362-02-18 05:48:00 Test Item Value Reference Range Interpretation Comments Eosinophils # (test code 0.1 See_Comment [A utomated message] The = Eosinophils #) system whic h generated this result tra nsmitted reference range : <=0.5. The reference r patria was not used to int erpret this result as normal/abnormal . [id number] 05:48:00 Test Item Value Reference Range Interpretation Comments Macrocyte (test code = 2+ *ABN*(12/28/21 Macrocyte) 11:48 PM) [facility]2022-02-18 05:48:00 Test Item Value Reference Range Interpretation Comments Magnesium Lvl (test code = Magnesium 2.0 1.8-2.4 Lvl) [place] 519362-02-18 05:48:00 Test Item Value Reference Range Interpretation Comments ACT (TEG) Rapid (test code = ACT (TEG) 105 s 86-118 Rapid) [place] 519362-02-18 05:48:00 Test Item Value Reference Range Interpretation Comments Split Point Rapid (test code = Split 0.4 min Point Rapid) [place] [address]-02-18 05:48:00 Test Item Value Reference Range Interpretation Comments R-time Rapid (test code = R-time 0.6 min 0.4-0.7 Rapid) [place] 519362-02-18 05:48:00 Test Item Value Reference Range Interpretation Comments K-time Rapid (test code = K-time 1.2 min 0.6-2.3 Rapid) [place] 519362-02-18 05:48:00 Test Item Value Reference Range Interpretation Comments Angle Rapid (test code = Angle 76 degrees 64-80 Rapid) [place] 519362-02-18 05:48:00 Test Item Value Reference Range Interpretation Comments Max Amplitude Rapid (test code = Max 60 mm 52-71 Amplitude Rapid) [place] 519362-02-18 05:48:00 Test Item Value Reference Range Interpretation Comments G-value Rapid (test code = G-value 7.4 5.0-11.6 Rapid) [place] [address]-02-18 05:48:00 Test Item Value Reference Range Interpretation Comments Estimated % Lysis Rapid 0.0 See_Comment [Au tomated message] The (test code = Estimated syste m which generated % Lysis Rapid) this result t ransmitted reference range : <=7.5. The reference r patria was not used to int erpret this result as normal/abnormal . [place] 519362-02-18 05:48:00 Test Item Value Reference Range Interpretation Comments Eosinophils # (test code 0.1 See_Comment [A utomated message] The = Eosinophils #) system whic h generated this result tra nsmitted reference range : <=0.5. The reference r patria was not used to int erpret this result as normal/abnormal . [place] 519362-02-18 05:48:00 Test Item Value Reference Range Interpretation Comments Macrocyte (test code = 2+ *ABN*(12/28/21 Macrocyte) 11:48 PM) [facility]2022-02-18 05:48:00 Test Item Value Reference Range Interpretation Comments Magnesium Lvl (test code = Magnesium 2.0 1.8-2.4 Lvl) [place] 519362-02-18 05:48:00 Test Item Value Reference Range Interpretation Comments ACT (TEG) Rapid (test code = ACT (TEG) 105 s 86-118 Rapid) [place] 519362-02-18 05:48:00 Test Item Value Reference Range Interpretation Comments Split Point Rapid (test code = Split 0.4 min Point Rapid) [place] [address]-02-18 05:48:00 Test Item Value Reference Range Interpretation Comments R-time Rapid (test code = R-time 0.6 min 0.4-0.7 Rapid) [address]02-18 05:48:00 Test Item Value Reference Range Interpretation Comments K-time Rapid (test code = K-time 1.2 min 0.6-2.3 Rapid) [place] 519362-02-18 05:48:00 Test Item Value Reference Range Interpretation Comments Angle Rapid (test code = Angle 76 degrees 64-80 Rapid) [facility]NjfbbztKNTTYTBURA7438-80-29 05:48:00 Test Item Value Reference Range Interpretation Comments Max Amplitude Rapid (test code = Max 60 mm 52-71 Amplitude Rapid) [place] 519362-02-18 05:48:00 Test Item Value Reference Range Interpretation Comments G-value Rapid (test code = G-value 7.4 5.0-11.6 Rapid) [place] 519362-02-18 05:48:00 Test Item Value Reference Range Interpretation Comments Estimated % Lysis Rapid 0.0 See_Comment [Au tomated message] The (test code = Estimated syste m which generated % Lysis Rapid) this result t ransmitted reference range : <=7.5. The reference r patria was not used to int erpret this result as normal/abnormal . [facility] CenterSfgjjjyFASOKUVWGQ8506-10-91 05:48:00 Test Item Value Reference Range Interpretation Comments Eosinophils # (test code 0.1 See_Comment [A utomated message] The = Eosinophils #) system whic h generated this result tra nsmitted reference range : <=0.5. The reference r patria was not used to int erpret this result as normal/abnormal . [facility] CenterYfuhidsLGGMLDXYZF0301-29-56 05:48:00 Test Item Value Reference Range Interpretation Comments Macrocyte (test code = 2+ *ABN*(12/28/21 Macrocyte) 11:48 PM) [facility]2022-02-18 05:48:00 Test Item Value Reference Range Interpretation Comments Magnesium Lvl (test code = Magnesium 2.0 1.8-2.4 Lvl) [facility] CenterWddxcjhJERNHIYZNT0996-48-15 05:48:00 Test Item Value Reference Range Interpretation Comments ACT (TEG) Rapid (test code = ACT (TEG) 105 s 86-118 Rapid) [facility] CenterPatdicvZXWCEOCABX9262-89-93 05:48:00 Test Item Value Reference Range Interpretation Comments Split Point Rapid (test code = Split 0.4 min Point Rapid) [facility] CenterEinucotHOLNLENQAU8479-17-33 05:48:00 Test Item Value Reference Range Interpretation Comments R-time Rapid (test code = R-time 0.6 min 0.4-0.7 Rapid) [facility] CenterCyjbieeZWKDGVFWEX8988-38-99 05:48:00 Test Item Value Reference Range Interpretation Comments K-time Rapid (test code = K-time 1.2 min 0.6-2.3 Rapid) [place] [address]-02-18 05:48:00 Test Item Value Reference Range Interpretation Comments Angle Rapid (test code = Angle 76 degrees 64-80 Rapid) [facility] CenterGgbfnmcKZRACPMZAM3065-02-64 05:48:00 Test Item Value Reference Range Interpretation Comments Max Amplitude Rapid (test code = Max 60 mm 52-71 Amplitude Rapid) [place] 519362-02-18 05:48:00 Test Item Value Reference Range Interpretation Comments G-value Rapid (test code = G-value 7.4 5.0-11.6 Rapid) [place] 519362-02-18 05:48:00 Test Item Value Reference Range Interpretation Comments Estimated % Lysis Rapid 0.0 See_Comment [Au tomated message] The (test code = Estimated syste m which generated % Lysis Rapid) this result t ransmitted reference range : <=7.5. The reference r patria was not used to int erpret this result as normal/abnormal . [place] 519362-02-18 05:48:00 Test Item Value Reference Range Interpretation Comments Eosinophils # (test code 0.1 See_Comment [A utomated message] The = Eosinophils #) system whic h generated this result tra nsmitted reference range : <=0.5. The reference r patria was not used to int erpret this result as normal/abnormal . [place] 519362-02-18 05:48:00 Test Item Value Reference Range Interpretation Comments Macrocyte (test code = 2+ *ABN*(12/28/21 Macrocyte) 11:48 PM) [facility]2022-02-18 05:48:00 Test Item Value Reference Range Interpretation Comments Magnesium Lvl (test code = Magnesium 2.0 1.8-2.4 Lvl) [facility] CenterDasgioqQMOJLCMXXR5945-83-72 05:48:00 Test Item Value Reference Range Interpretation Comments ACT (TEG) Rapid (test code = ACT (TEG) 105 s 86-118 Rapid) [place] 519362-02-18 05:48:00 Test Item Value Reference Range Interpretation Comments Split Point Rapid (test code = Split 0.4 min Point Rapid) [place] 519362-02-18 05:48:00 Test Item Value Reference Range Interpretation Comments R-time Rapid (test code = R-time 0.6 min 0.4-0.7 Rapid) [place] 519362-02-18 05:48:00 Test Item Value Reference Range Interpretation Comments K-time Rapid (test code = K-time 1.2 min 0.6-2.3 Rapid) [place] 519362-02-18 05:48:00 Test Item Value Reference Range Interpretation Comments Angle Rapid (test code = Angle 76 degrees 64-80 Rapid) [place] 519362-02-18 05:48:00 Test Item Value Reference Range Interpretation Comments Max Amplitude Rapid (test code = Max 60 mm 52-71 Amplitude Rapid) [place] 519362-02-18 05:48:00 Test Item Value Reference Range Interpretation Comments G-value Rapid (test code = G-value 7.4 5.0-11.6 Rapid) [place] 519362-02-18 05:48:00 Test Item Value Reference Range Interpretation Comments Estimated % Lysis Rapid 0.0 See_Comment [Au tomated message] The (test code = Estimated syste m which generated % Lysis Rapid) this result t ransmitted reference range : <=7.5. The reference r patria was not used to int erpret this result as normal/abnormal . [place] [address]-02-18 05:48:00 Test Item Value Reference Range Interpretation Comments Eosinophils # (test code 0.1 See_Comment [A utomated message] The = Eosinophils #) system whic h generated this result tra nsmitted reference range : <=0.5. The reference r patria was not used to int erpret this result as normal/abnormal . [place] 519362-02-18 05:48:00 Test Item Value Reference Range Interpretation Comments Macrocyte (test code = 2+ *ABN*(12/28/21 Macrocyte) 11:48 PM) [facility]2022-02-18 05:48:00 Test Item Value Reference Range Interpretation Comments Magnesium Lvl (test code = Magnesium 2.0 1.8-2.4 Lvl) [facility] CenterAconaalWWCTRZNQMO7540-22-83 05:48:00 Test Item Value Reference Range Interpretation Comments ACT (TEG) Rapid (test code = ACT (TEG) 105 s 86-118 Rapid) [place] 519362-02-18 05:48:00 Test Item Value Reference Range Interpretation Comments Split Point Rapid (test code = Split 0.4 min Point Rapid) [place] 519362-02-18 05:48:00 Test Item Value Reference Range Interpretation Comments R-time Rapid (test code = R-time 0.6 min 0.4-0.7 Rapid) [place] 519362-02-18 05:48:00 Test Item Value Reference Range Interpretation Comments K-time Rapid (test code = K-time 1.2 min 0.6-2.3 Rapid) [place] 519362-02-18 05:48:00 Test Item Value Reference Range Interpretation Comments Angle Rapid (test code = Angle 76 degrees 64-80 Rapid) [address]02-18 05:48:00 Test Item Value Reference Range Interpretation Comments Max Amplitude Rapid (test code = Max 60 mm 52-71 Amplitude Rapid) [place] 519362-02-18 05:48:00 Test Item Value Reference Range Interpretation Comments G-value Rapid (test code = G-value 7.4 5.0-11.6 Rapid) [place] [address]-02-18 05:48:00 Test Item Value Reference Range Interpretation Comments Estimated % Lysis Rapid 0.0 See_Comment [Au tomated message] The (test code = Estimated syste m which generated % Lysis Rapid) this result t ransmitted reference range : <=7.5. The reference r patria was not used to int erpret this result as normal/abnormal . [place] 519362-02-18 05:48:00 Test Item Value Reference Range Interpretation Comments Eosinophils # (test code 0.1 See_Comment [A utomated message] The = Eosinophils #) system whic h generated this result tra nsmitted reference range : <=0.5. The reference r patria was not used to int erpret this result as normal/abnormal . [place] 519362-02-18 05:48:00 Test Item Value Reference Range Interpretation Comments Macrocyte (test code = 2+ *ABN*(12/28/21 Macrocyte) 11:48 PM) [facility]2022-02-18 05:48:00 Test Item Value Reference Range Interpretation Comments Magnesium Lvl (test code = Magnesium 2.0 1.8-2.4 Lvl) [facility] [id number] 05:48:00 Test Item Value Reference Range Interpretation Comments ACT (TEG) Rapid (test code = ACT (TEG) 105 s 86-118 Rapid) [place] 519362-02-18 05:48:00 Test Item Value Reference Range Interpretation Comments Split Point Rapid (test code = Split 0.4 min Point Rapid) [place] 519362-02-18 05:48:00 Test Item Value Reference Range Interpretation Comments R-time Rapid (test code = R-time 0.6 min 0.4-0.7 Rapid) [place] 519362-02-18 05:48:00 Test Item Value Reference Range Interpretation Comments K-time Rapid (test code = K-time 1.2 min 0.6-2.3 Rapid) [place] [address]-02-18 05:48:00 Test Item Value Reference Range Interpretation Comments Angle Rapid (test code = Angle 76 degrees 64-80 Rapid) [place] 519362-02-18 05:48:00 Test Item Value Reference Range Interpretation Comments Max Amplitude Rapid (test code = Max 60 mm 52-71 Amplitude Rapid) [place] [address]-02-18 05:48:00 Test Item Value Reference Range Interpretation Comments G-value Rapid (test code = G-value 7.4 5.0-11.6 Rapid) [place] [address]-02-18 05:48:00 Test Item Value Reference Range Interpretation Comments Estimated % Lysis Rapid 0.0 See_Comment [Au tomated message] The (test code = Estimated syste m which generated % Lysis Rapid) this result t ransmitted reference range : <=7.5. The reference r patria was not used to int erpret this result as normal/abnormal . [place] [address]-02-18 05:48:00 Test Item Value Reference Range Interpretation Comments Eosinophils # (test code 0.1 See_Comment [A utomated message] The = Eosinophils #) system whic h generated this result tra nsmitted reference range : <=0.5. The reference r patria was not used to int erpret this result as normal/abnormal . [place] 519362-02-18 05:48:00 Test Item Value Reference Range Interpretation Comments Macrocyte (test code = 2+ *ABN*(12/28/21 Macrocyte) 11:48 PM) [facility]2022-02-18 05:48:00 Test Item Value Reference Range Interpretation Comments Magnesium Lvl (test code = Magnesium 2.0 1.8-2.4 Lvl) [facility] CenterTnqokamPXKBVYLOKA9308-41-43 05:48:00 Test Item Value Reference Range Interpretation Comments ACT (TEG) Rapid (test code = ACT (TEG) 105 s 86-118 Rapid) [place] 519362-02-18 05:48:00 Test Item Value Reference Range Interpretation Comments Split Point Rapid (test code = Split 0.4 min Point Rapid) [place] 519362-02-18 05:48:00 Test Item Value Reference Range Interpretation Comments R-time Rapid (test code = R-time 0.6 min 0.4-0.7 Rapid) [place] 519362-02-18 05:48:00 Test Item Value Reference Range Interpretation Comments K-time Rapid (test code = K-time 1.2 min 0.6-2.3 Rapid) [place] 519362-02-18 05:48:00 Test Item Value Reference Range Interpretation Comments Angle Rapid (test code = Angle 76 degrees 64-80 Rapid) [place] [address]-02-18 05:48:00 Test Item Value Reference Range Interpretation Comments Max Amplitude Rapid (test code = Max 60 mm 52-71 Amplitude Rapid) [place] [address]-02-18 05:48:00 Test Item Value Reference Range Interpretation Comments G-value Rapid (test code = G-value 7.4 5.0-11.6 Rapid) [place] 519362-02-18 05:48:00 Test Item Value Reference Range Interpretation Comments Estimated % Lysis Rapid 0.0 See_Comment [Au tomated message] The (test code = Estimated syste m which generated % Lysis Rapid) this result t ransmitted reference range : <=7.5. The reference r patria was not used to int erpret this result as normal/abnormal . [facility] CenterDujvauaEFCDPEPRHP0298-88-14 05:48:00 Test Item Value Reference Range Interpretation Comments Eosinophils # (test code 0.1 See_Comment [A utomated message] The = Eosinophils #) system whic h generated this result tra nsmitted reference range : <=0.5. The reference r patria was not used to int erpret this result as normal/abnormal . [facility] CenterMaiofvrAAQKZXLHSF3626-94-99 05:48:00 Test Item Value Reference Range Interpretation Comments Macrocyte (test code = 2+ *ABN*(12/28/21 Macrocyte) 11:48 PM) [facility]2022-02-18 05:48:00 Test Item Value Reference Range Interpretation Comments Magnesium Lvl (test code = Magnesium 2.0 1.8-2.4 Lvl) [facility] CenterJfuwkriCDAJVPIWVY6898-33-70 05:48:00 Test Item Value Reference Range Interpretation Comments ACT (TEG) Rapid (test code = ACT (TEG) 105 s 86-118 Rapid) [place] 519362-02-18 05:48:00 Test Item Value Reference Range Interpretation Comments Split Point Rapid (test code = Split 0.4 min Point Rapid) [place] 519362-02-18 05:48:00 Test Item Value Reference Range Interpretation Comments R-time Rapid (test code = R-time 0.6 min 0.4-0.7 Rapid) [place] 519362-02-18 05:48:00 Test Item Value Reference Range Interpretation Comments K-time Rapid (test code = K-time 1.2 min 0.6-2.3 Rapid) [place] [address]-02-18 05:48:00 Test Item Value Reference Range Interpretation Comments Angle Rapid (test code = Angle 76 degrees 64-80 Rapid) [place] 519362-02-18 05:48:00 Test Item Value Reference Range Interpretation Comments Max Amplitude Rapid (test code = Max 60 mm 52-71 Amplitude Rapid) [place] 519362-02-18 05:48:00 Test Item Value Reference Range Interpretation Comments G-value Rapid (test code = G-value 7.4 5.0-11.6 Rapid) [place] 519362-02-18 05:48:00 Test Item Value Reference Range Interpretation Comments Estimated % Lysis Rapid 0.0 See_Comment [Au tomated message] The (test code = Estimated syste m which generated % Lysis Rapid) this result t ransmitted reference range : <=7.5. The reference r patria was not used to int erpret this result as normal/abnormal . [facility] CenterGgkbwimEPFCMSKVJF8202-46-55 05:48:00 Test Item Value Reference Range Interpretation Comments Eosinophils # (test code 0.1 See_Comment [A utomated message] The = Eosinophils #) system whic h generated this result tra nsmitted reference range : <=0.5. The reference r patria was not used to int erpret this result as normal/abnormal . [place] 519362-02-18 05:48:00 Test Item Value Reference Range Interpretation Comments Macrocyte (test code = 2+ *ABN*(12/28/21 Macrocyte) 11:48 PM) [facility]2022-02-18 05:48:00 Test Item Value Reference Range Interpretation Comments Magnesium Lvl (test code = Magnesium 2.0 1.8-2.4 Lvl) [place] 519362-02-18 05:48:00 Test Item Value Reference Range Interpretation Comments ACT (TEG) Rapid (test code = ACT (TEG) 105 s 86-118 Rapid) [place] [address]-02-18 05:48:00 Test Item Value Reference Range Interpretation Comments Split Point Rapid (test code = Split 0.4 min Point Rapid) [place] [address]-02-18 05:48:00 Test Item Value Reference Range Interpretation Comments R-time Rapid (test code = R-time 0.6 min 0.4-0.7 Rapid) [place] [address]-02-18 05:48:00 Test Item Value Reference Range Interpretation Comments K-time Rapid (test code = K-time 1.2 min 0.6-2.3 Rapid) [place] 519362-02-18 05:48:00 Test Item Value Reference Range Interpretation Comments Angle Rapid (test code = Angle 76 degrees 64-80 Rapid) [facility] CenterPefmdofKLHPBUYMIC6930-73-22 05:48:00 Test Item Value Reference Range Interpretation Comments Max Amplitude Rapid (test code = Max 60 mm 52-71 Amplitude Rapid) [place] 519362-02-18 05:48:00 Test Item Value Reference Range Interpretation Comments G-value Rapid (test code = G-value 7.4 5.0-11.6 Rapid) [place] 519362-02-18 05:48:00 Test Item Value Reference Range Interpretation Comments Estimated % Lysis Rapid 0.0 See_Comment [Au tomated message] The (test code = Estimated syste m which generated % Lysis Rapid) this result t ransmitted reference range : <=7.5. The reference r patria was not used to int erpret this result as normal/abnormal . [facility] CenterHrxlpejGXSRGMVVSZ6104-72-98 05:48:00 Test Item Value Reference Range Interpretation Comments Eosinophils # (test code 0.1 See_Comment [A utomated message] The = Eosinophils #) system whic h generated this result tra nsmitted reference range : <=0.5. The reference r patria was not used to int erpret this result as normal/abnormal . [place] 519362-02-18 05:48:00 Test Item Value Reference Range Interpretation Comments Macrocyte (test code = 2+ *ABN*(12/28/21 Macrocyte) 11:48 PM) [facility]2022-02-18 05:48:00 Test Item Value Reference Range Interpretation Comments Magnesium Lvl (test code = Magnesium 2.0 1.8-2.4 Lvl) [place] 519362-02-18 05:48:00 Test Item Value Reference Range Interpretation Comments ACT (TEG) Rapid (test code = ACT (TEG) 105 s 86-118 Rapid) [place] 519362-02-18 05:48:00 Test Item Value Reference Range Interpretation Comments Split Point Rapid (test code = Split 0.4 min Point Rapid) [place] 519362-02-18 05:48:00 Test Item Value Reference Range Interpretation Comments R-time Rapid (test code = R-time 0.6 min 0.4-0.7 Rapid) [place] 519362-02-18 05:48:00 Test Item Value Reference Range Interpretation Comments K-time Rapid (test code = K-time 1.2 min 0.6-2.3 Rapid) [facility] CenterQhgcwbbYTYOPEETVY0469-65-80 05:48:00 Test Item Value Reference Range Interpretation Comments Angle Rapid (test code = Angle 76 degrees 64-80 Rapid) [facility] CenterTuhzcqyZYJNSVOLCN1566-25-50 05:48:00 Test Item Value Reference Range Interpretation Comments Max Amplitude Rapid (test code = Max 60 mm 52-71 Amplitude Rapid) [facility] CenterLzvcdkqOKMIZAWYEF4855-64-84 05:48:00 Test Item Value Reference Range Interpretation Comments G-value Rapid (test code = G-value 7.4 5.0-11.6 Rapid) [place] 519362-02-18 05:48:00 Test Item Value Reference Range Interpretation Comments Estimated % Lysis Rapid 0.0 See_Comment [Au tomated message] The (test code = Estimated syste m which generated % Lysis Rapid) this result t ransmitted reference range : <=7.5. The reference r patria was not used to int erpret this result as normal/abnormal . [facility] CenterIubutmsADQSKGPEUE7652-34-84 05:48:00 Test Item Value Reference Range Interpretation Comments Eosinophils # (test code 0.1 See_Comment [A utomated message] The = Eosinophils #) system whic h generated this result tra nsmitted reference range : <=0.5. The reference r patria was not used to int erpret this result as normal/abnormal . [facility] CenterHsoebgdLVMUCJVRFV8278-18-07 05:48:00 Test Item Value Reference Range Interpretation Comments Macrocyte (test code = 2+ *ABN*(12/28/21 Macrocyte) 11:48 PM) [facility]2022-02-18 05:48:00 Test Item Value Reference Range Interpretation Comments Magnesium Lvl (test code = Magnesium 2.0 1.8-2.4 Lvl) [facility] CenterPqdwmbpMHQXEOPMHM1039-78-18 05:48:00 Test Item Value Reference Range Interpretation Comments ACT (TEG) Rapid (test code = ACT (TEG) 105 s 86-118 Rapid) [facility] CenterYqekvfyRETQEDNCSH3097-47-87 05:48:00 Test Item Value Reference Range Interpretation Comments Split Point Rapid (test code = Split 0.4 min Point Rapid) [place] 519362-02-18 05:48:00 Test Item Value Reference Range Interpretation Comments R-time Rapid (test code = R-time 0.6 min 0.4-0.7 Rapid) [id number] 05:48:00 Test Item Value Reference Range Interpretation Comments K-time Rapid (test code = K-time 1.2 min 0.6-2.3 Rapid) [id number] 05:48:00 Test Item Value Reference Range Interpretation Comments Angle Rapid (test code = Angle 76 degrees 64-80 Rapid) [facility]AgrwnwbOAVZKURBSJ3057-33-97 05:48:00 Test Item Value Reference Range Interpretation Comments Max Amplitude Rapid (test code = Max 60 mm 52-71 Amplitude Rapid) [facility]LiwgqnvZJPTGOGTMM3443-29-19 05:48:00 Test Item Value Reference Range Interpretation Comments G-value Rapid (test code = G-value 7.4 5.0-11.6 Rapid) [facility] CenterJljpicbKEVYRICXFK9529-36-73 05:48:00 Test Item Value Reference Range Interpretation Comments Estimated % Lysis Rapid 0.0 See_Comment [Au tomated message] The (test code = Estimated syste m which generated % Lysis Rapid) this result t ransmitted reference range : <=7.5. The reference r patria was not used to int erpret this result as normal/abnormal . [facility] [id number] 05:48:00 Test Item Value Reference Range Interpretation Comments Eosinophils # (test code 0.1 See_Comment [A utomated message] The = Eosinophils #) system whic h generated this result tra nsmitted reference range : <=0.5. The reference r patria was not used to int erpret this result as normal/abnormal . [facility] CenterTitggcaLVCYDXVNDD3752-17-11 05:48:00 Test Item Value Reference Range Interpretation Comments Macrocyte (test code = 2+ *ABN*(12/28/21 Macrocyte) 11:48 PM) [facility] [id number] 05:20:00 Test Item Value Reference Range Interpretation Comments FFP product (test code Product available = FFP product) (12/28/21 11:20 PM) [facility] [id number] 05:20:00 Test Item Value Reference Range Interpretation Comments FFP product (test code Product available = FFP product) (12/28/21 11:20 PM) [facility] [id number] 05:20:00 Test Item Value Reference Range Interpretation Comments FFP product (test code Product available = FFP product) (12/28/21 11:20 PM) [facility] [id number] 05:20:00 Test Item Value Reference Range Interpretation Comments FFP product (test code Product available = FFP product) (12/28/21 11:20 PM) [facility] [id number] 05:20:00 Test Item Value Reference Range Interpretation Comments FFP product (test code Product available = FFP product) (12/28/21 11:20 PM) [facility] [id number] 05:20:00 Test Item Value Reference Range Interpretation Comments FFP product (test code Product available = FFP product) (12/28/21 11:20 PM) [facility] [id number] 05:20:00 Test Item Value Reference Range Interpretation Comments FFP product (test code Product available = FFP product) (12/28/21 11:20 PM) [facility] [id number] 05:20:00 Test Item Value Reference Range Interpretation Comments FFP product (test code Product available = FFP product) (12/28/21 11:20 PM) [facility] [id number] 05:20:00 Test Item Value Reference Range Interpretation Comments FFP product (test code Product available = FFP product) (12/28/21 11:20 PM) [facility] [id number] 05:20:00 Test Item Value Reference Range Interpretation Comments FFP product (test code Product available = FFP product) (12/28/21 11:20 PM) [facility] [id number] 05:20:00 Test Item Value Reference Range Interpretation Comments FFP product (test code Product available = FFP product) (12/28/21 11:20 PM) [facility] [id number] 05:20:00 Test Item Value Reference Range Interpretation Comments FFP product (test code Product available = FFP product) (12/28/21 11:20 PM) [facility]2022-02-18 03:21:00 Test Item Value Reference Range Interpretation Comments BNP (test code = BNP) [address] [facility] [employer] [id number] 03:21:00 Test Item Value Reference Range Interpretation Comments Vitamin D, 25-OH, Total (test code = 37 Vitamin D, 25-OH, Total) [facility] [id number] 03:21:00 Test Item Value Reference Range Interpretation Comments BNP (test code = BNP) [address] [facility] [id number] 03:21:00 Test Item Value Reference Range Interpretation Comments Vitamin D, 25-OH, Total (test code = 37 Vitamin D, 25-OH, Total) [facility] DGSEannCARWonderflowAC [id number] 03:21:00 Test Item Value Reference Range Interpretation Comments BNP (test code = BNP) [address] [facility] [id number] 03:21:00 Test Item Value Reference Range Interpretation Comments Vitamin D, 25-OH, Total (test code = 37 Vitamin D, 25-OH, Total) [facility] DGSEannKukupiaAC [id number] 03:21:00 Test Item Value Reference Range Interpretation Comments BNP (test code = BNP) [address] [facility] [id number] 03:21:00 Test Item Value Reference Range Interpretation Comments Vitamin D, 25-OH, Total (test code = 37 Vitamin D, 25-OH, Total) [facility] [id number] 03:21:00 Test Item Value Reference Range Interpretation Comments BNP (test code = BNP) [address] [facility] [id number] 03:21:00 Test Item Value Reference Range Interpretation Comments Vitamin D, 25-OH, Total (test code = 37 Vitamin D, 25-OH, Total) [facility] [id number] 03:21:00 Test Item Value Reference Range Interpretation Comments BNP (test code = BNP) [address] [employer] [id number] 03:21:00 Test Item Value Reference Range Interpretation Comments Vitamin D, 25-OH, Total (test code = 37 Vitamin D, 25-OH, Total) [facility] [id number] 03:21:00 Test Item Value Reference Range Interpretation Comments BNP (test code = BNP) [address] [employer] [id number] 03:21:00 Test Item Value Reference Range Interpretation Comments Vitamin D, 25-OH, Total (test code = 37 Vitamin D, 25-OH, Total) [employer] [id number] 03:21:00 Test Item Value Reference Range Interpretation Comments BNP (test code = BNP) [address] [employer] [id number] 03:21:00 Test Item Value Reference Range Interpretation Comments Vitamin D, 25-OH, Total (test code = 37 Vitamin D, 25-OH, Total) [employer] [id number] 03:21:00 Test Item Value Reference Range Interpretation Comments BNP (test code = BNP) [address] [employer] [id number] 03:21:00 Test Item Value Reference Range Interpretation Comments Vitamin D, 25-OH, Total (test code = 37 Vitamin D, 25-OH, Total) [employer]2022-02-18 03:21:00 Test Item Value Reference Range Interpretation Comments BNP (test code = BNP) [address] [employer] [id number] 03:21:00 Test Item Value Reference Range Interpretation Comments Vitamin D, 25-OH, Total (test code = 37 Vitamin D, 25-OH, Total) [employer]2022-02-18 03:21:00 Test Item Value Reference Range Interpretation Comments BNP (test code = BNP) [address] [employer] [id number] 03:21:00 Test Item Value Reference Range Interpretation Comments Vitamin D, 25-OH, Total (test code = 37 Vitamin D, 25-OH, Total) [employer]2022-02-18 03:21:00 Test Item Value Reference Range Interpretation Comments BNP (test code = BNP) 73 [employer]2022-02-18 03:21:00 Test Item Value Reference Range Interpretation Comments Vitamin D, 25-OH, Total (test code = 37 Vitamin D, 25-OH, Total) [employer]2022-02-18 03:20:00 Test Item Value Reference Range Interpretation Comments Lactic Acid Lvl (test code = Lactic 2.0 0.5-2.2 Acid Lvl) [employer]2022-02-18 03:20:00 Test Item Value Reference Range Interpretation Comments Lactic Acid Lvl (test code = Lactic 2.0 0.5-2.2 Acid Lvl) [place] [id number] 03:20:00 Test Item Value Reference Range Interpretation Comments Lactic Acid Lvl (test code = Lactic 2.0 0.5-2.2 Acid Lvl) [address]02-18 03:20:00 Test Item Value Reference Range Interpretation Comments Lactic Acid Lvl (test code = Lactic 2.0 0.5-2.2 Acid Lvl) [address]02-18 03:20:00 Test Item Value Reference Range Interpretation Comments Lactic Acid Lvl (test code = Lactic 2.0 0.5-2.2 Acid Lvl) [address]02-18 03:20:00 Test Item Value Reference Range Interpretation Comments Lactic Acid Lvl (test code = Lactic 2.0 0.5-2.2 Acid Lvl) [address]02-18 03:20:00 Test Item Value Reference Range Interpretation Comments Lactic Acid Lvl (test code = Lactic 2.0 0.5-2.2 Acid Lvl) [address]02-18 03:20:00 Test Item Value Reference Range Interpretation Comments Lactic Acid Lvl (test code = Lactic 2.0 0.5-2.2 Acid Lvl) [place] [id number] 03:20:00 Test Item Value Reference Range Interpretation Comments Lactic Acid Lvl (test code = Lactic 2.0 0.5-2.2 Acid Lvl) [address]02-18 03:20:00 Test Item Value Reference Range Interpretation Comments Lactic Acid Lvl (test code = Lactic 2.0 0.5-2.2 Acid Lvl) [place] [id number] 03:20:00 Test Item Value Reference Range Interpretation Comments Lactic Acid Lvl (test code = Lactic 2.0 0.5-2.2 Acid Lvl) [place] [address]-02-18 03:20:00 Test Item Value Reference Range Interpretation Comments Lactic Acid Lvl (test code = Lactic 2.0 0.5-2.2 Acid Lvl) [place] 106782-02-18 02:41:00 Test Item Value Reference Range Interpretation Comments Coronavirus (COVID-19) Not Detected (12/28/21 [place] (test code = 8:41 PM) Coronavirus (COVID-19) [place]) [place] 106782-02-18 02:41:00 Test Item Value Reference Range Interpretation Comments Coronavirus (COVID-19) Not Detected (12/28/21 [place] (test code = 8:41 PM) Coronavirus (COVID-19) [place]) [place] [address]-02-18 02:41:00 Test Item Value Reference Range Interpretation Comments Coronavirus (COVID-19) Not Detected (12/28/21 [place] (test code = 8:41 PM) Coronavirus (COVID-19) [place]) [place] [address]-02-18 02:41:00 Test Item Value Reference Range Interpretation Comments Coronavirus (COVID-19) Not Detected (12/28/21 [place] (test code = 8:41 PM) Coronavirus (COVID-19) [place]) [place] [address]-02-18 02:41:00 Test Item Value Reference Range Interpretation Comments Coronavirus (COVID-19) Not Detected (12/28/21 [place] (test code = 8:41 PM) Coronavirus (COVID-19) [place]) [place] [address]-02-18 02:41:00 Test Item Value Reference Range Interpretation Comments Coronavirus (COVID-19) Not Detected (12/28/21 [place] (test code = 8:41 PM) Coronavirus (COVID-19) [place]) [place] 106782-02-18 02:41:00 Test Item Value Reference Range Interpretation Comments Coronavirus (COVID-19) Not Detected (12/28/21 [place] (test code = 8:41 PM) Coronavirus (COVID-19) [place]) [place] [address]-02-18 02:41:00 Test Item Value Reference Range Interpretation Comments Coronavirus (COVID-19) Not Detected (12/28/21 [place] (test code = 8:41 PM) Coronavirus (COVID-19) [place]) [place] [address]-02-18 02:41:00 Test Item Value Reference Range Interpretation Comments Coronavirus (COVID-19) Not Detected (12/28/21 [place] (test code = 8:41 PM) Coronavirus (COVID-19) [place]) [id number] 02:41:00 Test Item Value Reference Range Interpretation Comments Coronavirus (COVID-19) Not Detected (12/28/21 [place] (test code = 8:41 PM) Coronavirus (COVID-19) [place]) [place] 106782-02-18 02:41:00 Test Item Value Reference Range Interpretation Comments Coronavirus (COVID-19) Not Detected (12/28/21 [place] (test code = 8:41 PM) Coronavirus (COVID-19) [place]) [facility] [id number] 02:41:00 Test Item Value Reference Range Interpretation Comments Coronavirus (COVID-19) Not Detected (12/28/21 [place] (test code = 8:41 PM) Coronavirus (COVID-19) [place]) [place] 519362-02-18 02:38:00 Test Item Value Reference Range Interpretation Comments Sed Rate (test code = 19 See_Comment [Auto mated message] The Sed Rate) system which ge nerated this result transmit rosendo reference range : <=20. The reference range was not used to interpr et this result as josi l/abnormal. [place] [address]-02-18 02:38:00 Test Item Value Reference Range Interpretation Comments C-REACTIVE PROTEIN (test code = no gt C-REACTIVE PROTEIN) [place] 519362-02-18 02:38:00 Test Item Value Reference Range Interpretation Comments Sed Rate (test code = 19 See_Comment [Auto mated message] The Sed Rate) system which ge nerated this result transmit rosendo reference range : <=20. The reference range was not used to interpr et this result as josi l/abnormal. [place] 106782-02-18 02:38:00 Test Item Value Reference Range Interpretation Comments C-REACTIVE PROTEIN (test code = no gt C-REACTIVE PROTEIN) [place] [address]-02-18 02:38:00 Test Item Value Reference Range Interpretation Comments Sed Rate (test code = 19 See_Comment [Auto mated message] The Sed Rate) system which ge nerated this result transmit rosendo reference range : <=20. The reference range was not used to interpr et this result as josi l/abnormal. [place] 106782-02-18 02:38:00 Test Item Value Reference Range Interpretation Comments C-REACTIVE PROTEIN (test code = no gt C-REACTIVE PROTEIN) [id number] 02:38:00 Test Item Value Reference Range Interpretation Comments Sed Rate (test code = 19 See_Comment [Auto mated message] The Sed Rate) system which ge nerated this result transmit rosendo reference range : <=20. The reference range was not used to interpr et this result as josi l/abnormal. [facility] [id number] 02:38:00 Test Item Value Reference Range Interpretation Comments C-REACTIVE PROTEIN (test code = no gt C-REACTIVE PROTEIN) [facility]J[id number] 02:38:00 Test Item Value Reference Range Interpretation Comments Sed Rate (test code = 19 See_Comment [Auto mated message] The Sed Rate) system which ge nerated this result transmit rosendo reference range : <=20. The reference range was not used to interpr et this result as josi l/abnormal. [place] 106782-02-18 02:38:00 Test Item Value Reference Range Interpretation Comments C-REACTIVE PROTEIN (test code = no gt C-REACTIVE PROTEIN) [facility] CenterBjmygqrDFJGZWHOTJ7061-07-60 02:38:00 Test Item Value Reference Range Interpretation Comments Sed Rate (test code = 19 See_Comment [Auto mated message] The Sed Rate) system which ge nerated this result transmit rosendo reference range : <=20. The reference range was not used to interpr et this result as josi l/abnormal. [facility] [id number] 02:38:00 Test Item Value Reference Range Interpretation Comments C-REACTIVE PROTEIN (test code = no gt C-REACTIVE PROTEIN) [facility] CenterPaihpopNHWESMXQZD0701-17-25 02:38:00 Test Item Value Reference Range Interpretation Comments Sed Rate (test code = 19 See_Comment [Auto mated message] The Sed Rate) system which ge nerated this result transmit rosendo reference range : <=20. The reference range was not used to interpr et this result as josi l/abnormal. [facility] WestVgbqcfhMSPOODDIDM1879-88-20 02:38:00 Test Item Value Reference Range Interpretation Comments C-REACTIVE PROTEIN (test code = no gt C-REACTIVE PROTEIN) [place] [address]-02-18 02:38:00 Test Item Value Reference Range Interpretation Comments Sed Rate (test code = 19 See_Comment [Auto mated message] The Sed Rate) system which ge nerated this result transmit rosendo reference range : <=20. The reference range was not used to interpr et this result as josi l/abnormal. [address]02-18 02:38:00 Test Item Value Reference Range Interpretation Comments C-REACTIVE PROTEIN (test code = no gt C-REACTIVE PROTEIN) [address]02-18 02:38:00 Test Item Value Reference Range Interpretation Comments Sed Rate (test code = 19 See_Comment [Auto mated message] The Sed Rate) system which ge nerated this result transmit rosendo reference range : <=20. The reference range was not used to interpr et this result as josi l/abnormal. [address]02-18 02:38:00 Test Item Value Reference Range Interpretation Comments C-REACTIVE PROTEIN (test code = no gt C-REACTIVE PROTEIN) [address]02-18 02:38:00 Test Item Value Reference Range Interpretation Comments Sed Rate (test code = 19 See_Comment [Auto mated message] The Sed Rate) system which ge nerated this result transmit rosendo reference range : <=20. The reference range was not used to interpr et this result as josi l/abnormal. [address]02-18 02:38:00 Test Item Value Reference Range Interpretation Comments C-REACTIVE PROTEIN (test code = no gt C-REACTIVE PROTEIN) [place] [address]-02-18 02:38:00 Test Item Value Reference Range Interpretation Comments Sed Rate (test code = 19 See_Comment [Auto mated message] The Sed Rate) system which ge nerated this result transmit rosendo reference range : <=20. The reference range was not used to interpr et this result as josi l/abnormal. [place] [address]-02-18 02:38:00 Test Item Value Reference Range Interpretation Comments C-REACTIVE PROTEIN (test code = no gt C-REACTIVE PROTEIN) [place] [address]-02-18 02:38:00 Test Item Value Reference Range Interpretation Comments Sed Rate (test code = 19 See_Comment [Auto mated message] The Sed Rate) system which ge nerated this result transmit rosendo reference range : <=20. The reference range was not used to interpr et this result as josi l/abnormal. [facility]ng[facility]ztrNFVTATGKDZ2624[facility]32-62 02:38:00 Test Item Value Reference Range Interpretation Comments C-REACTIVE PROTEIN (test code = no gt C-REACTIVE PROTEIN) [facility] [id number] 21:40:00 Test Item Value Reference Range Interpretation Comments AB Int (test code = AB Int) [facility]D [facility] [id number] 21:40:00 Test Item Value Reference Range Interpretation Comments Path AB (test code Blood Bank Physician = Path AB) Service This is an 81-year-old female with paroxysmal atrial fibrillation and sick sinus syndrome, and permanent pacemaker placement who presented to the hospital with a left periprosthetic femur shaft fracture after a ground level mechanical fall. 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 This antibody is directed against D antigen of the "Rh" blood group system. It is usually considered a clinically significant antibody as it has been associated with hemolytic transfusion reactions and hemolytic disease of the fetus/. Anti-D is typically IgG in nature and forms in response to RBC sensitization via prior transfusion or . Should RBC transfusion be necessary, D-negative crossmatch-compatible blood will be issued. No difficulty in obtaining compatible blood is expected. The patient s electronic medical record has been reviewed for relevant information. I have reviewed the test results and concur with the resident, Dr. Josie Gonzales's, interpretation. CPT: 51315-DI [facility] [employer] [id number] 21:40:00 Test Item Value Reference Range Interpretation Comments ABO/Rh (test code = ABO/Rh) A NEG [facility] [employer] [id number] 21:40:00 Test Item Value Reference Range Interpretation Comments Antibody Scrn (test Positive 4(12/28/21 code = Antibody Scrn) 3:40 PM) [facility] [employer] [id number] 21:40:00 Test Item Value Reference Range Interpretation Comments Total Protein (test code = Total 6.0 6.4-8.4 Protein) [facility] [employer] [id number] 21:40:00 Test Item Value Reference Range Interpretation Comments Albumin Lvl (test code = Albumin Lvl) 2.7 3.5-5.0 [facility] [employer] [id number] 21:40:00 Test Item Value Reference Range Interpretation Comments ALANINE AMINOTRANSFERASE 26 See_Comment [A utomated message] (test code = ALANINE The sys tem which AMINOTRANSFERASE) generated this result transmitted ref erence range: <=65. Th e reference range was not used to int erpret this result as normal/abnormal . [facility] [employer] [id number] 21:40:00 Test Item Value Reference Range Interpretation Comments AST (test code = AST) 23 See_Comment [Auto mated message] The system which ge nerated this result transmit rosendo reference range : <=37. The reference range was not used to interpr et this result as josi l/abnormal. [facility] [employer] [id number] 21:40:00 Test Item Value Reference Range Interpretation Comments Alk Phos (test code = Alk Phos) 71 39-136 [facility] [employer] [id number] 21:40:00 Test Item Value Reference Range Interpretation Comments Bili Total (test code = Bili Total) 0.2 0.2-1.3 [facility] [id number] 21:40:00 Test Item Value Reference Range Interpretation Comments B/C Ratio (test code = B/C Ratio) 31 1 6-25 [facility] [id number] 21:40:00 Test Item Value Reference Range Interpretation Comments Globulin (test code = Globulin) 3.3 2.7-4.2 [facility] [employer] [id number] 21:40:00 Test Item Value Reference Range Interpretation Comments A/G Ratio (test code = A/G Ratio) 0.8 1 0.7-1.6 [facility] Re[id number] 21:40:00 Test Item Value Reference Range Interpretation Comments Basophils # (test code 0.1 See_Comment [Aut omated message] The = Basophils #) system which generated this result tra nsmitted reference range : <=0.2. The reference r patria was not used to int erpret this result as normal/abnormal . [facility] Re[id number] 21:40:00 Test Item Value Reference Range Interpretation Comments Macrocyte (test code = 1+ *ABN*(12/28/21 Macrocyte) 3:40 PM) [facility] [id number] 21:40:00 Test Item Value Reference Range Interpretation Comments PT (test code = PT) 15.3 s 12.0-14.7 [facility] ResourcesZwhtyraMXOJXDFGFE2160-04-11 21:40:00 Test Item Value Reference Range Interpretation Comments INR (test code = INR) 1.22 1 0.85-1.17 [facility]NacematCYFBJEGRBD0771-14-25 21:40:00 Test Item Value Reference Range Interpretation Comments PTT (test code = PTT) 31.0 s 22.9-35.8 [facility] [employer] [id number] 21:40:00 Test Item Value Reference Range Interpretation Comments AB Int (test code = AB Int) Anti-D [facility] [employer] [facility] [id number] 21:40:00 Test Item Value Reference Range Interpretation Comments Path AB (test code Blood Bank Physician = Path AB) Service This is an 81-year-old female with paroxysmal atrial fibrillation and sick sinus syndrome, and permanent pacemaker placement who presented to the hospital with a left periprosthetic femur shaft fracture after a ground level mechanical fall. 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 This antibody is directed against D antigen of the "Rh" blood group system. It is usually considered a clinically significant antibody as it has been associated with hemolytic transfusion reactions and hemolytic disease of the fetus/. Anti-D is typically IgG in nature and forms in response to RBC sensitization via prior transfusion or . Should RBC transfusion be necessary, D-negative crossmatch-compatible blood will be issued. No difficulty in obtaining compatible blood is expected. The patient s electronic medical record has been reviewed for relevant information. I have reviewed the test results and concur with the resident, Dr. Josie Gonzales's, interpretation. CPT: 91420-OR [facility] [employer] [id number] 21:40:00 Test Item Value Reference Range Interpretation Comments ABO/Rh (test code = ABO/Rh) A NEG [facility] [employer] [facility] [id number] 21:40:00 Test Item Value Reference Range Interpretation Comments Antibody Scrn (test Positive 4(12/28/21 code = Antibody Scrn) 3:40 PM) [facility] [id number] 21:40:00 Test Item Value Reference Range Interpretation Comments Total Protein (test code = Total 6.0 6.4-8.4 Protein) [place] [address]-02-17 21:40:00 Test Item Value Reference Range Interpretation Comments Albumin Lvl (test code = Albumin Lvl) 2.7 3.5-5.0 [place] [address]-02-17 21:40:00 Test Item Value Reference Range Interpretation Comments ALANINE AMINOTRANSFERASE 26 See_Comment [A utomated message] (test code = ALANINE The sys tem which AMINOTRANSFERASE) generated this result transmitted ref erence range: <=65. Th e reference range was not used to int erpret this result as normal/abnormal . [place] [id number] 21:40:00 Test Item Value Reference Range Interpretation Comments AST (test code = AST) 23 See_Comment [Auto mated message] The system which ge nerated this result transmit rosendo reference range : <=37. The reference range was not used to interpr et this result as josi l/abnormal. [place] 542562-02-17 21:40:00 Test Item Value Reference Range Interpretation Comments Alk Phos (test code = Alk Phos) 71 39-136 [place] [address]-02-17 21:40:00 Test Item Value Reference Range Interpretation Comments Bili Total (test code = Bili Total) 0.2 0.2-1.3 [place] [address]-02-17 21:40:00 Test Item Value Reference Range Interpretation Comments B/C Ratio (test code = B/C Ratio) 31 1 6-25 [place] [address]-02-17 21:40:00 Test Item Value Reference Range Interpretation Comments Globulin (test code = Globulin) 3.3 2.7-4.2 [place] [address]-02-17 21:40:00 Test Item Value Reference Range Interpretation Comments A/G Ratio (test code = A/G Ratio) 0.8 1 0.7-1.6 [place] [id number] 21:40:00 Test Item Value Reference Range Interpretation Comments Basophils # (test code 0.1 See_Comment [Aut omated message] The = Basophils #) system which generated this result tra nsmitted reference range : <=0.2. The reference r patria was not used to int erpret this result as normal/abnormal . [facility] 21:40:00 Test Item Value Reference Range Interpretation Comments Macrocyte (test code = 1+ *ABN*(12/28/21 Macrocyte) 3:40 PM) [id number] 21:40:00 Test Item Value Reference Range Interpretation Comments PT (test code = PT) 15.3 s 12.0-14.7 [facility]NmcpyvdJNCETDMEXT5167-23-85 21:40:00 Test Item Value Reference Range Interpretation Comments INR (test code = INR) 1.22 1 0.85-1.17 [facility] CenterGsmybbxQUZKEEIHXC1464-51-18 21:40:00 Test Item Value Reference Range Interpretation Comments PTT (test code = PTT) 31.0 s 22.9-35.8 [facility] [id number] 21:40:00 Test Item Value Reference Range Interpretation Comments AB Int (test code = AB Int) Anti-D [facility] [id number] 21:40:00 Test Item Value Reference Range Interpretation Comments Path AB (test code Blood Bank Physician = Path AB) Service This is an 81-year-old female with paroxysmal atrial fibrillation and sick sinus syndrome, and permanent pacemaker placement who presented to the hospital with a left periprosthetic femur shaft fracture after a ground level mechanical fall. 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 This antibody is directed against D antigen of the "Rh" blood group system. It is usually considered a clinically significant antibody as it has been associated with hemolytic transfusion reactions and hemolytic disease of the fetus/. Anti-D is typically IgG in nature and forms in response to RBC sensitization via prior transfusion or . Should RBC transfusion be necessary, D-negative crossmatch-compatible blood will be issued. No difficulty in obtaining compatible blood is expected. The patient s electronic medical record has been reviewed for relevant information. I have reviewed the test results and concur with the resident, Dr. Josie Gonzales's, interpretation. CPT: 88855-BV [facility] [id number] 21:40:00 Test Item Value Reference Range Interpretation Comments ABO/Rh (test code = ABO/Rh) A NEG [facility] [id number] 21:40:00 Test Item Value Reference Range Interpretation Comments Antibody Scrn (test Positive 4(12/28/21 code = Antibody Scrn) 3:40 PM) [facility]2022-02-17 21:40:00 Test Item Value Reference Range Interpretation Comments Total Protein (test code = Total 6.0 6.4-8.4 Protein) [facility]2022-02-17 21:40:00 Test Item Value Reference Range Interpretation Comments Albumin Lvl (test code = Albumin Lvl) 2.7 3.5-5.0 [place] 542562-02-17 21:40:00 Test Item Value Reference Range Interpretation Comments ALANINE AMINOTRANSFERASE 26 See_Comment [A utomated message] (test code = ALANINE The sys tem which AMINOTRANSFERASE) generated this result transmitted ref erence range: <=65. Th e reference range was not used to int erpret this result as normal/abnormal . [facility]2022-02-17 21:40:00 Test Item Value Reference Range Interpretation Comments AST (test code = AST) 23 See_Comment [Auto mated message] The system which ge nerated this result transmit rosedno reference range : <=37. The reference range was not used to interpr et this result as josi l/abnormal. [facility] [id number] 21:40:00 Test Item Value Reference Range Interpretation Comments Alk Phos (test code = Alk Phos) 71 39-136 [facility]2022-02-17 21:40:00 Test Item Value Reference Range Interpretation Comments Bili Total (test code = Bili Total) 0.2 0.2-1.3 [facility]2022-02-17 21:40:00 Test Item Value Reference Range Interpretation Comments B/C Ratio (test code = B/C Ratio) 31 1 6-25 [place] 542562-02-17 21:40:00 Test Item Value Reference Range Interpretation Comments Globulin (test code = Globulin) 3.3 2.7-4.2 [place] 542562-02-17 21:40:00 Test Item Value Reference Range Interpretation Comments A/G Ratio (test code = A/G Ratio) 0.8 1 0.7-1.6 [facility]JzcyhnaXJRVQWMCVJ7004-08-15 21:40:00 Test Item Value Reference Range Interpretation Comments Basophils # (test code 0.1 See_Comment [Aut omated message] The = Basophils #) system which generated this result tra nsmitted reference range : <=0.2. The reference r patria was not used to int erpret this result as normal/abnormal . [facility] Cent[id number] 21:40:00 Test Item Value Reference Range Interpretation Comments Macrocyte (test code = 1+ *ABN*(12/28/21 Macrocyte) 3:40 PM) [facility] CenterIixpfmrBANBSHECMZ2988-26-47 21:40:00 Test Item Value Reference Range Interpretation Comments PT (test code = PT) 15.3 s 12.0-14.7 [facility] CenterPxtpppfGWEVARGEJH7149-67-97 21:40:00 Test Item Value Reference Range Interpretation Comments INR (test code = INR) 1.22 1 0.85-1.17 [facility] CenterYquuegtWIGKRJSGWE5887-51-78 21:40:00 Test Item Value Reference Range Interpretation Comments PTT (test code = PTT) 31.0 s 22.9-35.8 [facility] [id number] 21:40:00 Test Item Value Reference Range Interpretation Comments AB Int (test code = AB Int) Anti-D [facility] [id number] 21:40:00 Test Item Value Reference Range Interpretation Comments Path AB (test code Blood Bank Physician = Path AB) Service This is an 81-year-old female with paroxysmal atrial fibrillation and sick sinus syndrome, and permanent pacemaker placement who presented to the hospital with a left periprosthetic femur shaft fracture after a ground level mechanical fall. 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 This antibody is directed against D antigen of the "Rh" blood group system. It is usually considered a clinically significant antibody as it has been associated with hemolytic transfusion reactions and hemolytic disease of the fetus/. Anti-D is typically IgG in nature and forms in response to RBC sensitization via prior transfusion or . Should RBC transfusion be necessary, D-negative crossmatch-compatible blood will be issued. No difficulty in obtaining compatible blood is expected. The patient s electronic medical record has been reviewed for relevant information. I have reviewed the test results and concur with the resident, Dr. Josie Gonzales's, interpretation. CPT: 18408-ZZ [facility]++ [id number] 21:40:00 Test Item Value Reference Range Interpretation Comments ABO/Rh (test code = ABO/Rh) A NEG [facility] [employer] [id number] 21:40:00 Test Item Value Reference Range Interpretation Comments Antibody Scrn (test Positive 4(12/28/21 code = Antibody Scrn) 3:40 PM) [employer] [id number] 21:40:00 Test Item Value Reference Range Interpretation Comments Total Protein (test code = Total 6.0 6.4-8.4 Protein) [employer] [id number] 21:40:00 Test Item Value Reference Range Interpretation Comments Albumin Lvl (test code = Albumin Lvl) 2.7 3.5-5.0 [employer] [id number] 21:40:00 Test Item Value Reference Range Interpretation Comments ALANINE AMINOTRANSFERASE 26 See_Comment [A utomated message] (test code = ALANINE The sys tem which AMINOTRANSFERASE) generated this result transmitted ref erence range: <=65. Th e reference range was not used to int erpret this result as normal/abnormal . [place]2022-02-17 21:40:00 Test Item Value Reference Range Interpretation Comments AST (test code = AST) 23 See_Comment [Auto mated message] The system which ge nerated this result transmit rosendo reference range : <=37. The reference range was not used to interpr et this result as josi l/abnormal. [facility]2022-02-17 21:40:00 Test Item Value Reference Range Interpretation Comments Alk Phos (test code = Alk Phos) 71 39-136 [facility]2022-02-17 21:40:00 Test Item Value Reference Range Interpretation Comments Bili Total (test code = Bili Total) 0.2 0.2-1.3 [facility]2022-02-17 21:40:00 Test Item Value Reference Range Interpretation Comments B/C Ratio (test code = B/C Ratio) 31 1 6-25 [place]2022-02-17 21:40:00 Test Item Value Reference Range Interpretation Comments Globulin (test code = Globulin) 3.3 2.7-4.2 ehealthtracker2-02-17 21:40:00 Test Item Value Reference Range Interpretation Comments A/G Ratio (test code = A/G Ratio) 0.8 1 0.7-1.6 [facility] [id number] 21:40:00 Test Item Value Reference Range Interpretation Comments Basophils # (test code 0.1 See_Comment [Aut omated message] The = Basophils #) system which generated this result tra nsmitted reference range : <=0.2. The reference r patria was not used to int erpret this result as normal/abnormal . [facility] CenterVtegaupRNSXQXYKAI4637-43-09 21:40:00 Test Item Value Reference Range Interpretation Comments Macrocyte (test code = 1+ *ABN*(12/28/21 Macrocyte) 3:40 PM) [facility] C[id number] 21:40:00 Test Item Value Reference Range Interpretation Comments PT (test code = PT) 15.3 s 12.0-14.7 [facility] CenterKbglicwVSIJYKHZBK8264-23-96 21:40:00 Test Item Value Reference Range Interpretation Comments INR (test code = INR) 1.22 1 0.85-1.17 [facility] CenterFwxesxfLMHQIRYOLT5082-91-44 21:40:00 Test Item Value Reference Range Interpretation Comments PTT (test code = PTT) 31.0 s 22.9-35.8 [facility] [id number] 21:40:00 Test Item Value Reference Range Interpretation Comments AB Int (test code = AB Int) Anti-D [facility] [id number] 21:40:00 Test Item Value Reference Range Interpretation Comments Path AB (test code Blood Bank Physician = Path AB) Service This is an 81-year-old female with paroxysmal atrial fibrillation and sick sinus syndrome, and permanent pacemaker placement who presented to the hospital with a left periprosthetic femur shaft fracture after a ground level mechanical fall. 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 This antibody is directed against D antigen of the "Rh" blood group system. It is usually considered a clinically significant antibody as it has been associated with hemolytic transfusion reactions and hemolytic disease of the fetus/. Anti-D is typically IgG in nature and forms in response to RBC sensitization via prior transfusion or . Should RBC transfusion be necessary, D-negative crossmatch-compatible blood will be issued. No difficulty in obtaining compatible blood is expected. The patient s electronic medical record has been reviewed for relevant information. I have reviewed the test results and concur with the resident, Dr. Josie Gonzales's, interpretation. CPT: 88591-RW [facility] [employer] [id number] 21:40:00 Test Item Value Reference Range Interpretation Comments ABO/Rh (test code = ABO/Rh) A NEG [facility] [employer] [id number] 21:40:00 Test Item Value Reference Range Interpretation Comments Antibody Scrn (test Positive 4(12/28/21 code = Antibody Scrn) 3:40 PM) [facility] [employer] [id number] 21:40:00 Test Item Value Reference Range Interpretation Comments Total Protein (test code = Total 6.0 6.4-8.4 Protein) [facility] [email or web address] 21:40:00 Test Item Value Reference Range Interpretation Comments Albumin Lvl (test code = Albumin Lvl) 2.7 3.5-5.0 [facility] [email or web address] 21:40:00 Test Item Value Reference Range Interpretation Comments ALANINE AMINOTRANSFERASE 26 See_Comment [A utomated message] (test code = ALANINE The sys tem which AMINOTRANSFERASE) generated this result transmitted ref erence range: <=65. Th e reference range was not used to int erpret this result as normal/abnormal . [facility]2022-02-17 21:40:00 Test Item Value Reference Range Interpretation Comments AST (test code = AST) 23 See_Comment [Auto mated message] The system which ge nerated this result transmit rosendo reference range : <=37. The reference range was not used to interpr et this result as josi l/abnormal. [facility]2022-02-17 21:40:00 Test Item Value Reference Range Interpretation Comments Alk Phos (test code = Alk Phos) 71 39-136 [facility] [email or web address] 21:40:00 Test Item Value Reference Range Interpretation Comments Bili Total (test code = Bili Total) 0.2 0.2-1.3 [facility] [email or web address] 21:40:00 Test Item Value Reference Range Interpretation Comments B/C Ratio (test code = B/C Ratio) 31 1 6-25 [facility] [employer] [id number] 21:40:00 Test Item Value Reference Range Interpretation Comments Globulin (test code = Globulin) 3.3 2.7-4.2 [facility] [employer] [id number] 21:40:00 Test Item Value Reference Range Interpretation Comments A/G Ratio (test code = A/G Ratio) 0.8 1 0.7-1.6 [facility] Re[id number] 21:40:00 Test Item Value Reference Range Interpretation Comments Basophils # (test code 0.1 See_Comment [Aut omated message] The = Basophils #) system which generated this result tra nsmitted reference range : <=0.2. The reference r patria was not used to int erpret this result as normal/abnormal . [facility] Res[id number] 21:40:00 Test Item Value Reference Range Interpretation Comments Macrocyte (test code = 1+ *ABN*(12/28/21 Macrocyte) 3:40 PM) [facility] Re[id number] 21:40:00 Test Item Value Reference Range Interpretation Comments PT (test code = PT) 15.3 s 12.0-14.7 [facility] ResourcesDdoamqnIUFNPNIJDQ9258-77-24 21:40:00 Test Item Value Reference Range Interpretation Comments INR (test code = INR) 1.22 1 0.85-1.17 [facility] ResourcesFdhtclfNUPABKBMAN1967-26-16 21:40:00 Test Item Value Reference Range Interpretation Comments PTT (test code = PTT) 31.0 s 22.9-35.8 [facility] Resources[facility] [id number] 21:40:00 Test Item Value Reference Range Interpretation Comments AB Int (test code = AB Int) [facility]-D [facility] [id number] 21:40:00 Test Item Value Reference Range Interpretation Comments Path AB (test code Blood Bank Physician = Path AB) Service This is an 81-year-old female with paroxysmal atrial fibrillation and sick sinus syndrome, and permanent pacemaker placement who presented to the hospital with a left periprosthetic femur shaft fracture after a ground level mechanical fall. 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 This antibody is directed against D antigen of the "Rh" blood group system. It is usually considered a clinically significant antibody as it has been associated with hemolytic transfusion reactions and hemolytic disease of the fetus/. Anti-D is typically IgG in nature and forms in response to RBC sensitization via prior transfusion or . Should RBC transfusion be necessary, D-negative crossmatch-compatible blood will be issued. No difficulty in obtaining compatible blood is expected. The patient s electronic medical record has been reviewed for relevant information. I have reviewed the test results and concur with the resident, Dr. Josie Gonzales's, interpretation. CPT: 17913-HC [facility] [employer] [id number] 21:40:00 Test Item Value Reference Range Interpretation Comments ABO/Rh (test code = ABO/Rh) A NEG [facility] [employer] [id number] 21:40:00 Test Item Value Reference Range Interpretation Comments Antibody Scrn (test Positive 4(12/28/21 code = Antibody Scrn) 3:40 PM) [facility] [employer] [id number] 21:40:00 Test Item Value Reference Range Interpretation Comments Total Protein (test code = Total 6.0 6.4-8.4 Protein) [facility] [email or web address] 21:40:00 Test Item Value Reference Range Interpretation Comments Albumin Lvl (test code = Albumin Lvl) 2.7 3.5-5.0 [facility] [email or web address] 21:40:00 Test Item Value Reference Range Interpretation Comments ALANINE AMINOTRANSFERASE 26 See_Comment [A utomated message] (test code = ALANINE The sys tem which AMINOTRANSFERASE) generated this result transmitted ref erence range: <=65. Th e reference range was not used to int erpret this result as normal/abnormal . [facility]2022-02-17 21:40:00 Test Item Value Reference Range Interpretation Comments AST (test code = AST) 23 See_Comment [Auto mated message] The system which ge nerated this result transmit rosendo reference range : <=37. The reference range was not used to interpr et this result as josi l/abnormal. [facility]2022-02-17 21:40:00 Test Item Value Reference Range Interpretation Comments Alk Phos (test code = Alk Phos) 71 39-136 [facility] [email or web address] 21:40:00 Test Item Value Reference Range Interpretation Comments Bili Total (test code = Bili Total) 0.2 0.2-1.3 [facility] [employer] [id number] 21:40:00 Test Item Value Reference Range Interpretation Comments B/C Ratio (test code = B/C Ratio) 31 1 6-25 [facility] [email or web address] [id number] 21:40:00 Test Item Value Reference Range Interpretation Comments Globulin (test code = Globulin) 3.3 2.7-4.2 [facility] [employer] [id number] 21:40:00 Test Item Value Reference Range Interpretation Comments A/G Ratio (test code = A/G Ratio) 0.8 1 0.7-1.6 [facility] Re[id number] 21:40:00 Test Item Value Reference Range Interpretation Comments Basophils # (test code 0.1 See_Comment [Aut omated message] The = Basophils #) system which generated this result tra nsmitted reference range : <=0.2. The reference r patria was not used to int erpret this result as normal/abnormal . [facility] Resourc[id number] 21:40:00 Test Item Value Reference Range Interpretation Comments Macrocyte (test code = 1+ *ABN*(12/28/21 Macrocyte) 3:40 PM) [facility] ResourcesAxdiwqsUIQNASOTKF1601-27-84 21:40:00 Test Item Value Reference Range Interpretation Comments PT (test code = PT) 15.3 s 12.0-14.7 [facility] ResourcesCospseaRNJJTZJIIO9202-88-30 21:40:00 Test Item Value Reference Range Interpretation Comments INR (test code = INR) 1.22 1 0.85-1.17 [facility] Reso[id number] 21:40:00 Test Item Value Reference Range Interpretation Comments PTT (test code = PTT) 31.0 s 22.9-35.8 [facility] [employer] [id number] 21:40:00 Test Item Value Reference Range Interpretation Comments AB Int (test code = AB Int) Anti-D [facility] [employer] [id number] 21:40:00 Test Item Value Reference Range Interpretation Comments Path AB (test code Blood Bank Physician = Path AB) Service This is an 81-year-old female with paroxysmal atrial fibrillation and sick sinus syndrome, and permanent pacemaker placement who presented to the hospital with a left periprosthetic femur shaft fracture after a ground level mechanical fall. 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 This antibody is directed against D antigen of the "Rh" blood group system. It is usually considered a clinically significant antibody as it has been associated with hemolytic transfusion reactions and hemolytic disease of the fetus/. Anti-D is typically IgG in nature and forms in response to RBC sensitization via prior transfusion or . Should RBC transfusion be necessary, D-negative crossmatch-compatible blood will be issued. No difficulty in obtaining compatible blood is expected. The patient s electronic medical record has been reviewed for relevant information. I have reviewed the test results and concur with the resident, Dr. Josie Gonzales's, interpretation. CPT: 01458-OP [facility] [employer] [id number] 21:40:00 Test Item Value Reference Range Interpretation Comments ABO/Rh (test code = ABO/Rh) A NEG [facility] [employer] [id number] 21:40:00 Test Item Value Reference Range Interpretation Comments Antibody Scrn (test Positive 4(12/28/21 code = Antibody Scrn) 3:40 PM) [facility] [employer] [id number] 21:40:00 Test Item Value Reference Range Interpretation Comments Total Protein (test code = Total 6.0 6.4-8.4 Protein) [facility] [email or web address] 21:40:00 Test Item Value Reference Range Interpretation Comments Albumin Lvl (test code = Albumin Lvl) 2.7 3.5-5.0 [facility] [email or web address] 21:40:00 Test Item Value Reference Range Interpretation Comments ALANINE AMINOTRANSFERASE 26 See_Comment [A utomated message] (test code = ALANINE The sys tem which AMINOTRANSFERASE) generated this result transmitted ref erence range: <=65. Th e reference range was not used to int erpret this result as normal/abnormal . [employer] [id number] 21:40:00 Test Item Value Reference Range Interpretation Comments AST (test code = AST) 23 See_Comment [Auto mated message] The system which ge nerated this result transmit rosendo reference range : <=37. The reference range was not used to interpr et this result as josi l/abnormal. [facility] [employer] [id number] 21:40:00 Test Item Value Reference Range Interpretation Comments Alk Phos (test code = Alk Phos) 71 39-136 [facility] [email or web address] [id number] 21:40:00 Test Item Value Reference Range Interpretation Comments Bili Total (test code = Bili Total) 0.2 0.2-1.3 [facility] [employer] [id number] 21:40:00 Test Item Value Reference Range Interpretation Comments B/C Ratio (test code = B/C Ratio) 31 1 6-25 [facility] [employer] [id number] 21:40:00 Test Item Value Reference Range Interpretation Comments Globulin (test code = Globulin) 3.3 2.7-4.2 [facility] [employer] [id number] 21:40:00 Test Item Value Reference Range Interpretation Comments A/G Ratio (test code = A/G Ratio) 0.8 1 0.7-1.6 [facility] Re[id number] 21:40:00 Test Item Value Reference Range Interpretation Comments Basophils # (test code 0.1 See_Comment [Aut omated message] The = Basophils #) system which generated this result tra nsmitted reference range : <=0.2. The reference r patria was not used to int erpret this result as normal/abnormal . [facility] [id number] 21:40:00 Test Item Value Reference Range Interpretation Comments Macrocyte (test code = 1+ *ABN*(12/28/21 Macrocyte) 3:40 PM) [facility] ResourcesXinmrylTGWCGUJVUL3461-02-35 21:40:00 Test Item Value Reference Range Interpretation Comments PT (test code = PT) 15.3 s 12.0-14.7 [facility] Resourc[id number] 21:40:00 Test Item Value Reference Range Interpretation Comments INR (test code = INR) 1.22 1 0.85-1.17 [facility] ResourcesEwfdmdpYBSIBANXQZ0464-41-35 21:40:00 Test Item Value Reference Range Interpretation Comments PTT (test code = PTT) 31.0 s 22.9-35.8 [facility] ResourcesBliips BANK [id number] 21:40:00 Test Item Value Reference Range Interpretation Comments AB Int (test code = AB Int) Anti-D [facility] [employer] [id number] 21:40:00 Test Item Value Reference Range Interpretation Comments Path AB (test code Blood Bank Physician = Path AB) Service This is an 81-year-old female with paroxysmal atrial fibrillation and sick sinus syndrome, and permanent pacemaker placement who presented to the hospital with a left periprosthetic femur shaft fracture after a ground level mechanical fall. 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 This antibody is directed against D antigen of the "Rh" blood group system. It is usually considered a clinically significant antibody as it has been associated with hemolytic transfusion reactions and hemolytic disease of the fetus/. Anti-D is typically IgG in nature and forms in response to RBC sensitization via prior transfusion or . Should RBC transfusion be necessary, D-negative crossmatch-compatible blood will be issued. No difficulty in obtaining compatible blood is expected. The patient s electronic medical record has been reviewed for relevant information. I have reviewed the test results and concur with the resident, Dr. Josie Gonzales's, interpretation. CPT: 13698-UR [facility] [employer] [id number] 21:40:00 Test Item Value Reference Range Interpretation Comments ABO/Rh (test code = ABO/Rh) A NEG [facility] [employer] [id number] 21:40:00 Test Item Value Reference Range Interpretation Comments Antibody Scrn (test Positive 4(12/28/21 code = Antibody Scrn) 3:40 PM) [employer] [id number] 21:40:00 Test Item Value Reference Range Interpretation Comments Total Protein (test code = Total 6.0 6.4-8.4 Protein) [employer] [id number] 21:40:00 Test Item Value Reference Range Interpretation Comments Albumin Lvl (test code = Albumin Lvl) 2.7 3.5-5.0 Jascha2022-02-17 21:40:00 Test Item Value Reference Range Interpretation Comments ALANINE AMINOTRANSFERASE 26 See_Comment [A utomated message] (test code = ALANINE The sys tem which AMINOTRANSFERASE) generated this result transmitted ref erence range: <=65. Th e reference range was not used to int erpret this result as normal/abnormal . [employer] [id number] 21:40:00 Test Item Value Reference Range Interpretation Comments AST (test code = AST) 23 See_Comment [Auto mated message] The system which ge nerated this result transmit rosendo reference range : <=37. The reference range was not used to interpr et this result as josi l/abnormal. [facility] [id number] 21:40:00 Test Item Value Reference Range Interpretation Comments Alk Phos (test code = Alk Phos) 71 39-136 [place] [id number] 21:40:00 Test Item Value Reference Range Interpretation Comments Bili Total (test code = Bili Total) 0.2 0.2-1.3 [place] [id number] 21:40:00 Test Item Value Reference Range Interpretation Comments B/C Ratio (test code = B/C Ratio) 31 1 6-25 [place] [id number] 21:40:00 Test Item Value Reference Range Interpretation Comments Globulin (test code = Globulin) 3.3 2.7-4.2 [place] [id number] 21:40:00 Test Item Value Reference Range Interpretation Comments A/G Ratio (test code = A/G Ratio) 0.8 1 0.7-1.6 [place] [id number] 21:40:00 Test Item Value Reference Range Interpretation Comments Basophils # (test code 0.1 See_Comment [Aut omated message] The = Basophils #) system which generated this result tra nsmitted reference range : <=0.2. The reference r patria was not used to int erpret this result as normal/abnormal . [place] [id number] 21:40:00 Test Item Value Reference Range Interpretation Comments Macrocyte (test code = 1+ *ABN*(12/28/21 Macrocyte) 3:40 PM) [place] [id number] 21:40:00 Test Item Value Reference Range Interpretation Comments PT (test code = PT) 15.3 s 12.0-14.7 [place] [id number] 21:40:00 Test Item Value Reference Range Interpretation Comments INR (test code = INR) 1.22 1 0.85-1.17 [place] [id number] 21:40:00 Test Item Value Reference Range Interpretation Comments PTT (test code = PTT) 31.0 s 22.9-35.8 [facility] [employer] [id number] 21:40:00 Test Item Value Reference Range Interpretation Comments AB Int (test code = AB Int) Anti-D [facility] [employer] [id number] 21:40:00 Test Item Value Reference Range Interpretation Comments Path AB (test code Blood Bank Physician = Path AB) Service This is an 81-year-old female with paroxysmal atrial fibrillation and sick sinus syndrome, and permanent pacemaker placement who presented to the hospital with a left periprosthetic femur shaft fracture after a ground level mechanical fall. 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 This antibody is directed against D antigen of the "Rh" blood group system. It is usually considered a clinically significant antibody as it has been associated with hemolytic transfusion reactions and hemolytic disease of the fetus/. Anti-D is typically IgG in nature and forms in response to RBC sensitization via prior transfusion or . Should RBC transfusion be necessary, D-negative crossmatch-compatible blood will be issued. No difficulty in obtaining compatible blood is expected. The patient s electronic medical record has been reviewed for relevant information. I have reviewed the test results and concur with the resident, Dr. Josie Gonzales's, interpretation. CPT: 34568-YH [facility] [id number] 21:40:00 Test Item Value Reference Range Interpretation Comments ABO/Rh (test code = ABO/Rh) A NEG [facility] [employer] [id number] 21:40:00 Test Item Value Reference Range Interpretation Comments Antibody Scrn (test Positive 4(12/28/21 code = Antibody Scrn) 3:40 PM) [facility] [employer] [id number] 21:40:00 Test Item Value Reference Range Interpretation Comments Total Protein (test code = Total 6.0 6.4-8.4 Protein) [facility] [employer] [id number] 21:40:00 Test Item Value Reference Range Interpretation Comments Albumin Lvl (test code = Albumin Lvl) 2.7 3.5-5.0 [facility] [employer] [id number] 21:40:00 Test Item Value Reference Range Interpretation Comments ALANINE AMINOTRANSFERASE 26 See_Comment [A utomated message] (test code = ALANINE The sys tem which AMINOTRANSFERASE) generated this result transmitted ref erence range: <=65. Th e reference range was not used to int erpret this result as normal/abnormal . [facility] [employer] [id number] 21:40:00 Test Item Value Reference Range Interpretation Comments AST (test code = AST) 23 See_Comment [Auto mated message] The system which ge nerated this result transmit rosendo reference range : <=37. The reference range was not used to interpr et this result as josi l/abnormal. [facility] [employer] [id number] 21:40:00 Test Item Value Reference Range Interpretation Comments Alk Phos (test code = Alk Phos) 71 39-136 [facility] [employer] [id number] 21:40:00 Test Item Value Reference Range Interpretation Comments Bili Total (test code = Bili Total) 0.2 0.2-1.3 [facility] ResourcesAboutUs.org [id number] 21:40:00 Test Item Value Reference Range Interpretation Comments B/C Ratio (test code = B/C Ratio) 31 1 6-25 [facility] ResourcesAboutUs.org [id number] 21:40:00 Test Item Value Reference Range Interpretation Comments Globulin (test code = Globulin) 3.3 2.7-4.2 [facility] [employer] [id number] 21:40:00 Test Item Value Reference Range Interpretation Comments A/G Ratio (test code = A/G Ratio) 0.8 1 0.7-1.6 [facility] R[id number] 21:40:00 Test Item Value Reference Range Interpretation Comments Basophils # (test code 0.1 See_Comment [Aut omated message] The = Basophils #) system which generated this result tra nsmitted reference range : <=0.2. The reference r patria was not used to int erpret this result as normal/abnormal . [facility] R[id number] 21:40:00 Test Item Value Reference Range Interpretation Comments Macrocyte (test code = 1+ *ABN*(12/28/21 Macrocyte) 3:40 PM) [facility] Re[id number] 21:40:00 Test Item Value Reference Range Interpretation Comments PT (test code = PT) 15.3 s 12.0-14.7 [id number] 21:40:00 Test Item Value Reference Range Interpretation Comments INR (test code = INR) 1.22 1 0.85-1.17 [id number] 21:40:00 Test Item Value Reference Range Interpretation Comments PTT (test code = PTT) 31.0 s 22.9-35.8 [facility] [id number] 21:40:00 Test Item Value Reference Range Interpretation Comments AB Int (test code = AB Int) Anti-D [facility] [id number] 21:40:00 Test Item Value Reference Range Interpretation Comments Path AB (test code Blood Bank Physician = Path AB) Service This is an 81-year-old female with paroxysmal atrial fibrillation and sick sinus syndrome, and permanent pacemaker placement who presented to the hospital with a left periprosthetic femur shaft fracture after a ground level mechanical fall. 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 This antibody is directed against D antigen of the "Rh" blood group system. It is usually considered a clinically significant antibody as it has been associated with hemolytic transfusion reactions and hemolytic disease of the fetus/. Anti-D is typically IgG in nature and forms in response to RBC sensitization via prior transfusion or . Should RBC transfusion be necessary, D-negative crossmatch-compatible blood will be issued. No difficulty in obtaining compatible blood is expected. The patient s electronic medical record has been reviewed for relevant information. I have reviewed the test results and concur with the resident, Dr. Josie Gonzales's, interpretation. CPT: 41143-TI [facility] [id number] 21:40:00 Test Item Value Reference Range Interpretation Comments ABO/Rh (test code = ABO/Rh) A NEG [facility] [id number] 21:40:00 Test Item Value Reference Range Interpretation Comments Antibody Scrn (test Positive 4(12/28/21 code = Antibody Scrn) 3:40 PM) [facility] [employer] [id number] 21:40:00 Test Item Value Reference Range Interpretation Comments Total Protein (test code = Total 6.0 6.4-8.4 Protein) [facility] [employer] [id number] 21:40:00 Test Item Value Reference Range Interpretation Comments Albumin Lvl (test code = Albumin Lvl) 2.7 3.5-5.0 [place] [id number] 21:40:00 Test Item Value Reference Range Interpretation Comments ALANINE AMINOTRANSFERASE 26 See_Comment [A utomated message] (test code = ALANINE The sys tem which AMINOTRANSFERASE) generated this result transmitted ref erence range: <=65. Th e reference range was not used to int erpret this result as normal/abnormal . [facility] [id number] 21:40:00 Test Item Value Reference Range Interpretation Comments AST (test code = AST) 23 See_Comment [Auto mated message] The system which ge nerated this result transmit rosendo reference range : <=37. The reference range was not used to interpr et this result as josi l/abnormal. [facility] [id number] 21:40:00 Test Item Value Reference Range Interpretation Comments Alk Phos (test code = Alk Phos) 71 39-136 [facility] ResourcesAboutUs.org [id number] 21:40:00 Test Item Value Reference Range Interpretation Comments Bili Total (test code = Bili Total) 0.2 0.2-1.3 [facility] [id number] 21:40:00 Test Item Value Reference Range Interpretation Comments B/C Ratio (test code = B/C Ratio) 31 1 6-25 [facility] [id number] 21:40:00 Test Item Value Reference Range Interpretation Comments Globulin (test code = Globulin) 3.3 2.7-4.2 [facility] [id number] 21:40:00 Test Item Value Reference Range Interpretation Comments A/G Ratio (test code = A/G Ratio) 0.8 1 0.7-1.6 [facility] H[id number] 21:40:00 Test Item Value Reference Range Interpretation Comments Basophils # (test code 0.1 See_Comment [Aut omated message] The = Basophils #) system which generated this result tra nsmitted reference range : <=0.2. The reference r patria was not used to int erpret this result as normal/abnormal . [facility] H[id number] 21:40:00 Test Item Value Reference Range Interpretation Comments Macrocyte (test code = 1+ *ABN*(12/28/21 Macrocyte) 3:40 PM) [facility] R[id number] 21:40:00 Test Item Value Reference Range Interpretation Comments PT (test code = PT) 15.3 s 12.0-14.7 [facility] Re[id number] 21:40:00 Test Item Value Reference Range Interpretation Comments INR (test code = INR) 1.22 1 0.85-1.17 [facility] Hospit[id number] 21:40:00 Test Item Value Reference Range Interpretation Comments PTT (test code = PTT) 31.0 s 22.9-35.8 [facility] [employer] BANK [id number] 21:40:00 Test Item Value Reference Range Interpretation Comments AB Int (test code = AB Int) Anti-D [facility] ResourcesRipple TV [id number] 21:40:00 Test Item Value Reference Range Interpretation Comments Path AB (test code Blood Bank Physician = Path AB) Service This is an 81-year-old female with paroxysmal atrial fibrillation and sick sinus syndrome, and permanent pacemaker placement who presented to the hospital with a left periprosthetic femur shaft fracture after a ground level mechanical fall. 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 This antibody is directed against D antigen of the "Rh" blood group system. It is usually considered a clinically significant antibody as it has been associated with hemolytic transfusion reactions and hemolytic disease of the fetus/. Anti-D is typically IgG in nature and forms in response to RBC sensitization via prior transfusion or . Should RBC transfusion be necessary, D-negative crossmatch-compatible blood will be issued. No difficulty in obtaining compatible blood is expected. The patient s electronic medical record has been reviewed for relevant information. I have reviewed the test results and concur with the resident, Dr. Josie Gonzales's, interpretation. CPT: 39525-DR [facility] [employer] BANK [id number] 21:40:00 Test Item Value Reference Range Interpretation Comments ABO/Rh (test code = ABO/Rh) A NEG [facility] [employer] BANK [id number] 21:40:00 Test Item Value Reference Range Interpretation Comments Antibody Scrn (test Positive 4(12/28/21 code = Antibody Scrn) 3:40 PM) [facility] [id number] 21:40:00 Test Item Value Reference Range Interpretation Comments Total Protein (test code = Total 6.0 6.4-8.4 Protein) [place] [address]-02-17 21:40:00 Test Item Value Reference Range Interpretation Comments Albumin Lvl (test code = Albumin Lvl) 2.7 3.5-5.0 [place] [address]-02-17 21:40:00 Test Item Value Reference Range Interpretation Comments ALANINE AMINOTRANSFERASE 26 See_Comment [A utomated message] (test code = ALANINE The sys tem which AMINOTRANSFERASE) generated this result transmitted ref erence range: <=65. Th e reference range was not used to int erpret this result as normal/abnormal . [place] [id number] 21:40:00 Test Item Value Reference Range Interpretation Comments AST (test code = AST) 23 See_Comment [Auto mated message] The system which ge nerated this result transmit rosendo reference range : <=37. The reference range was not used to interpr et this result as josi l/abnormal. [place] [id number] 21:40:00 Test Item Value Reference Range Interpretation Comments Alk Phos (test code = Alk Phos) 71 39-136 [place] [id number] 21:40:00 Test Item Value Reference Range Interpretation Comments Bili Total (test code = Bili Total) 0.2 0.2-1.3 [place] [address]-02-17 21:40:00 Test Item Value Reference Range Interpretation Comments B/C Ratio (test code = B/C Ratio) 31 1 6-25 [place] [address]-02-17 21:40:00 Test Item Value Reference Range Interpretation Comments Globulin (test code = Globulin) 3.3 2.7-4.2 [place] [address]-02-17 21:40:00 Test Item Value Reference Range Interpretation Comments A/G Ratio (test code = A/G Ratio) 0.8 1 0.7-1.6 [place] [id number] 21:40:00 Test Item Value Reference Range Interpretation Comments Basophils # (test code 0.1 See_Comment [Aut omated message] The = Basophils #) system which generated this result tra nsmitted reference range : <=0.2. The reference r patria was not used to int erpret this result as normal/abnormal . [id number] 21:40:00 Test Item Value Reference Range Interpretation Comments Macrocyte (test code = 1+ *ABN*(12/28/21 Macrocyte) 3:40 PM) [facility] [id number] 21:40:00 Test Item Value Reference Range Interpretation Comments PT (test code = PT) 15.3 s 12.0-14.7 [facility] CenterBhaqkrnCSQTSSPEZY3148-09-19 21:40:00 Test Item Value Reference Range Interpretation Comments INR (test code = INR) 1.22 1 0.85-1.17 [facility] CenterDtuplrjBQTVHLVHTF0536-59-32 21:40:00 Test Item Value Reference Range Interpretation Comments PTT (test code = PTT) 31.0 s 22.9-35.8 [facility] [id number] 21:40:00 Test Item Value Reference Range Interpretation Comments AB Int (test code = AB Int) Anti-D [facility] [id number] 21:40:00 Test Item Value Reference Range Interpretation Comments Path AB (test code Blood Bank Physician = Path AB) Service This is an 81-year-old female with paroxysmal atrial fibrillation and sick sinus syndrome, and permanent pacemaker placement who presented to the hospital with a left periprosthetic femur shaft fracture after a ground level mechanical fall. 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 This antibody is directed against D antigen of the "Rh" blood group system. It is usually considered a clinically significant antibody as it has been associated with hemolytic transfusion reactions and hemolytic disease of the fetus/. Anti-D is typically IgG in nature and forms in response to RBC sensitization via prior transfusion or . Should RBC transfusion be necessary, D-negative crossmatch-compatible blood will be issued. No difficulty in obtaining compatible blood is expected. The patient s electronic medical record has been reviewed for relevant information. I have reviewed the test results and concur with the resident, Dr. Josie Gonzales's, interpretation. CPT: 66723-YE [facility] [id number] 21:40:00 Test Item Value Reference Range Interpretation Comments ABO/Rh (test code = ABO/Rh) A NEG [facility] [id number] 21:40:00 Test Item Value Reference Range Interpretation Comments Antibody Scrn (test Positive 4(12/28/21 code = Antibody Scrn) 3:40 PM) [facility]2022-02-17 21:40:00 Test Item Value Reference Range Interpretation Comments Total Protein (test code = Total 6.0 6.4-8.4 Protein) [facility]2022-02-17 21:40:00 Test Item Value Reference Range Interpretation Comments Albumin Lvl (test code = Albumin Lvl) 2.7 3.5-5.0 [facility]2022-02-17 21:40:00 Test Item Value Reference Range Interpretation Comments ALANINE AMINOTRANSFERASE 26 See_Comment [A utomated message] (test code = ALANINE The sys tem which AMINOTRANSFERASE) generated this result transmitted ref erence range: <=65. Th e reference range was not used to int erpret this result as normal/abnormal . [facility]2022-02-17 21:40:00 Test Item Value Reference Range Interpretation Comments AST (test code = AST) 23 See_Comment [Auto mated message] The system which ge nerated this result transmit rosendo reference range : <=37. The reference range was not used to interpr et this result as josi l/abnormal. [facility] [id number] 21:40:00 Test Item Value Reference Range Interpretation Comments Alk Phos (test code = Alk Phos) 71 39-136 [facility]2022-02-17 21:40:00 Test Item Value Reference Range Interpretation Comments Bili Total (test code = Bili Total) 0.2 0.2-1.3 [place] [id number] 21:40:00 Test Item Value Reference Range Interpretation Comments B/C Ratio (test code = B/C Ratio) 31 1 6-25 [place] [id number] 21:40:00 Test Item Value Reference Range Interpretation Comments Globulin (test code = Globulin) 3.3 2.7-4.2 [place] [id number] 21:40:00 Test Item Value Reference Range Interpretation Comments A/G Ratio (test code = A/G Ratio) 0.8 1 0.7-1.6 [facility]ttnrghKHJTTKSSJR5016-05-00 21:40:00 Test Item Value Reference Range Interpretation Comments Basophils # (test code 0.1 See_Comment [Aut omated message] The = Basophils #) system which generated this result tra nsmitted reference range : <=0.2. The reference r patria was not used to int erpret this result as normal/abnormal . [facility] CenterQdbaducRPKWPRYGHE7241-97-44 21:40:00 Test Item Value Reference Range Interpretation Comments Macrocyte (test code = 1+ *ABN*(12/28/21 Macrocyte) 3:40 PM) [facility] CenterWnpndjsOGQPDSQDHI9584-24-88 21:40:00 Test Item Value Reference Range Interpretation Comments PT (test code = PT) 15.3 s 12.0-14.7 [facility] CenterTzxkmzdWULFIQSTSU9799-79-63 21:40:00 Test Item Value Reference Range Interpretation Comments INR (test code = INR) 1.22 1 0.85-1.17 [facility] CenterJgmmamgIODSZUGJJO1717-24-83 21:40:00 Test Item Value Reference Range Interpretation Comments PTT (test code = PTT) 31.0 s 22.9-35.8 [facility] [facility] [[facility]/volume] in Serum or [id number] 03:30:00 Test Item Value Reference Range Interpretation Comments albumin (test code = albumin) 3.4 g/dL 3.5-5.2 L [facility] W Auto Differential panel - [id number] 03:30:00 Test Item Value Reference Range Interpretation Comments white blood count (test code = 5.1 K/uL 4.0-11.5 white blood count) red blood count (test code = red 3.07 M/uL 3.80-5.20 L blood count) hemoglobin (test code = 10.3 g/dL 10.5-15.7 L hemoglobin) hematocrit (test code = 34.1 % 34.0-50.0 hematocrit) MCV [Entitic volume] (test code = 111.1 fL 86-100 H 98167-1) mean corpuscular hemoglobin (test 33.6 pg 26.2-33.4 H code = mean corpuscular hemoglobin) mean corpuscular HGB conc (test 30.2 g/dL 30-34 code = mean corpuscular HGB conc) red cell distribution width (test 14.0 % 12.0-15.5 code = red cell distribution width) platelet count (test code = 236 K/uL 165-450 platelet count) mean platelet volume (test code = 9.1 fL 9.4-12.6 L mean platelet volume) Segmented neutrophils/100 52.3 % 44.4-80.1 leukocytes in Blood (test code = 49382-8) Immature granulocytes [#/volume] 0.0 K/uL 0.0-0.03 in Blood (test code = 00555-6) lymphocyte% (test code = 27.8 % 10.0-50.0 lymphocyte%) mono % (test code = mono %) 14.2 % 3.6-12.0 H eos % (test code = eos %) 4.3 % 0.0-5.4 Basophils/100 leukocytes in 1.0 % 0.1-1.2 Unspecified specimen (test code = 25880-9) Band form neutrophils [#/volume] 2.65 K/uL 1.56-6.13 in Blood (test code = 13348-4) Lymphocytes [#/volume] in 1.4 K/uL 1.18-3.74 Unspecified specimen by Automated count (test code = 37789-6) mono # (test code = mono #) 0.72 K/uL 0.24-0.86 eos # (test code = eos #) 0.22 K/uL 0.04-0.36 basophil # (test code = basophil 0.05 K/uL 0.01-0.08 #) NRBC% (test code = NRBC%) 0 /100 WBC 0-0.2 NRBC# (test code = NRBC#) 0 K/uL [facility] metabolic 2000 panel - Serum or [id number] 03:30:00 Test Item Value Reference Range Interpretation Comments Glucose [Mass/volume] in Serum or 90 mg/dL 82-115 Plasma (test code = 2345-7) Urea nitrogen [Mass/volume] in 62 mg/dL 8-23 H Serum or Plasma (test code = 3094-0) osmolality calculated,serum (test 295 mOsm/kg 280-300 code = osmolality calculated,serum) creatinine (test code = 1.9 mg/dL 0.50-0.90 H creatinine) glomerular filtration rate (test 25.31 L code = glomerular filtration rate) Urea nitrogen/Creatinine [Mass 32.6 12-20 H Ratio] in Serum or Plasma (test code = 3097-3) sodium level (test code = sodium 139 mmol/L 135-145 level) potassium level (test code = 5.0 mmol/L 3.5-5.2 potassium level) chloride level (test code = 107 mmol/L 98-108 chloride level) CO2 (test code = CO2) 22 mmol/L 21-32 anion gap (test code = anion gap) 15.0 mEq/L 12-20 calcium level (test code = 8.3 mg/dL 8.8-10.2 L calcium level) [facility] or [id number] 03:30:00 Test Item Value Reference Range Interpretation Comments phosphorous level (test code = 5.2 mg/dL 2.5-4.5 H phosphorous level) [facility] [[facility]] in Serum or [id number] 03:30:00 Test Item Value Reference Range Interpretation Comments albumin (test code = albumin) 3.4 g/dL 3.5-5.2 L [facility] HospitalDifferent[facility] panel, method unspecified - [id number] 00:00:00NeutrophilsBandLymphocyteAtypical LymphMonocyteEosinophilBasophilMetamyelocyteMyelocytePromyelocyteBlastsNucleated Red Blood CellAbs Neutrophil Count (Man)Abs Lymph Count (Man)Abs Monocyte Count (Man)Abs Eosinophil Count (Man)Abs Basophil Count (Man)Platelet EstimatePlatelet MorphologyMississippi State HospitalMagnesium [Moles/volume] in Unspecified [id number] 00:00:00 Test Item Value Reference Range Interpretation Comments magnesium level (test code = 2.1 mg/dL 1.6-2.4 magnesium level) [facility] HospitalUrinalysis complete panel - [id number] 11:49:00 Test Item Value Reference Range Interpretation Comments Color of Urine by Auto (test light yellow code = 83331-0) Appearance of Urine (test code clear clear = 5767-9) Glucose [Presence] in Urine by negative negative Automated test strip (test code = 50436-0) Bilirubin.total [Mass/volume] negative negative in Urine (test code = 1978-6) Ketones [Mass/volume] in Urine negative negative by Automated test strip (test code = 09556-9) Specific gravity of Urine by 1.012 1.003-1.030 Automated test strip (test code = 62579-5) blood urine (test code = blood negative negative urine) pH of Urine (test code = 5.000 5-9 2756-5) protein urine (UA) (test code = trace negative protein urine (UA)) Urobilinogen [Presence] in normal 0.2-1.0 Urine (test code = 66638-2) Nitrite [Presence] in Urine by negative negative Test strip (test code = 5802-4) Leukocyte esterase [Presence] =3 negative H in Urine by Automated test strip (test code = 34583-9) Erythrocytes [#/volume] in =1-5 0-5 Urine by Automated count (test code = 798-9) Leukocytes [#/area] in Urine =30-49 0-5 H sediment by Automated count (test code = 83973-3) Epithelial cells [Presence] in <1 0-5 Urine sediment by Light microscopy (test code = 83606-8) Bacteria identified in Urine by moderate (2 none detect H Culture (test code = 630-4) Casts [#/area] in Urine none detected none detect sediment by Automated count (test code = 19619-4) urine culture added? (test code yes = urine culture added?) [facility] GroupBacteria identified in Urine by [id number] 11:49:00Bacteria Ur [facility], [id number] 11:49:00 Test Item Value Reference Range Interpretation Comments Gentamicin [Susceptibility] by <=2 Minimum inhibitory concentration (YUNG) (test code = 267-5) Ampicillin [Susceptibility] by 8 ug/mL Minimum inhibitory concentration (YUNG) (test code = 28-1) ceFAZolin [Susceptibility] by <=1 Minimum inhibitory concentration (YUNG) (test code = 76-0) Trimethoprim+Sulfamethoxazole =2/38 [Susceptibility] by Minimum inhibitory concentration (YUNG) (test code = 516-5) Tetracycline [Susceptibility] by >8 Minimum inhibitory concentration (YUNG) (test code = 496-0) Amoxicillin+Clavulanate =4/2 [Susceptibility] by Minimum inhibitory concentration (YUNG) (test code = 20-8) Tobramycin [Susceptibility] by <=2 Minimum inhibitory concentration (YUNG) (test code = 508-2) Nitrofurantoin [Susceptibility] by 64 ug/mL Minimum inhibitory concentration (YUNG) (test code = 363-2) cefOXitin [Susceptibility] by <=4 Minimum inhibitory concentration (YUNG) (test code = 116-4) levoFLOXacin [Susceptibility] by <=0.5 Minimum inhibitory concentration (YUNG) (test code = 56985-5) cefTAZidime [Susceptibility] by <=2 Minimum inhibitory concentration (YUNG) (test code = 133-9) cefTRIAXone [Susceptibility] by <=1 Minimum inhibitory concentration (YUNG) (test code = 141-2) Ciprofloxacin [Susceptibility] by <=0.25 Minimum inhibitory concentration (YUNG) (test code = 185-9) Ampicillin+Sulbactam =4/2 [Susceptibility] by Minimum inhibitory concentration (YUNG) (test code = 32-3) Ertapenem [Susceptibility] by <=0.25 Minimum inhibitory concentration (YUNG) (test code = 50758-6) Aztreonam [Susceptibility] by <=2 Minimum inhibitory concentration (YUNG) (test code = 44-8) Cefepime [Susceptibility] by Minimum <=1 inhibitory concentration (YUNG) (test code = 6644-9) Meropenem [Susceptibility] by <=0.5 Minimum inhibitory concentration (YUNG) (test code = 6652-2) Moxifloxacin [Susceptibility] by <=1 Minimum inhibitory concentration (YUNG) (test code = 57102-7) Amikacin [Susceptibility] by Minimum <=8 inhibitory concentration (YUNG) (test code = 12-5) Piperacillin+Tazobactam =4/4 [Susceptibility] by Minimum inhibitory concentration (YUNG) (test code = 412-7) Ceftaroline [Susceptibility] by <=0.25 Minimum inhibitory concentration (YUNG) (test code = 84919-7) Tigecycline [Susceptibility] by <=1 Minimum inhibitory concentration (YUNG) (test code = 27514-2) [facility] W Auto Differential panel - [id number] 05:44:00 Test Item Value Reference Range Interpretation Comments white blood count (test code = 6.3 K/uL 4.0-11.5 white blood count) red blood count (test code = red 3.05 M/uL 3.80-5.20 L blood count) hemoglobin (test code = 10.3 g/dL 10.5-15.7 L hemoglobin) hematocrit (test code = 32.9 % 34.0-50.0 L hematocrit) MCV [Entitic volume] (test code = 107.9 fL 86-100 H 12590-5) mean corpuscular hemoglobin (test 33.8 pg 26.2-33.4 H code = mean corpuscular hemoglobin) mean corpuscular HGB conc (test 31.3 g/dL 30-34 code = mean corpuscular HGB conc) red cell distribution width (test 13.9 % 12.0-15.5 code = red cell distribution width) platelet count (test code = 243 K/uL 165-450 platelet count) mean platelet volume (test code = 9.3 fL 9.4-12.6 L mean platelet volume) Segmented neutrophils/100 54.4 % 44.4-80.1 leukocytes in Blood (test code = 79498-3) Immature granulocytes [#/volume] 0.0 K/uL 0.0-0.03 in Blood (test code = 83458-6) lymphocyte% (test code = 27.4 % 10.0-50.0 lymphocyte%) mono % (test code = mono %) 12.3 % 3.6-12.0 H eos % (test code = eos %) 4.6 % 0.0-5.4 Basophils/100 leukocytes in 1.0 % 0.1-1.2 Unspecified specimen (test code = 34278-3) Band form neutrophils [#/volume] 3.40 K/uL 1.56-6.13 in Blood (test code = 68007-6) Lymphocytes [#/volume] in 1.7 K/uL 1.18-3.74 Unspecified specimen by Automated count (test code = 17010-4) mono # (test code = mono #) 0.77 K/uL 0.24-0.86 eos # (test code = eos #) 0.29 K/uL 0.04-0.36 basophil # (test code = basophil 0.06 K/uL 0.01-0.08 #) NRBC% (test code = NRBC%) 0 /100 WBC 0-0.2 NRBC# (test code = NRBC#) 0 K/uL [facility] - [facility] or Plasma 2021-10-28 05:44:00 Test Item Value Reference Range Interpretation Comments Glucose [Mass/volume] in Serum or 84 mg/dL 82-115 Plasma (test code = 2345-7) Urea nitrogen [Mass/volume] in 78 mg/dL 8-23 H Serum or Plasma (test code = 3094-0) osmolality calculated,serum (test 306 mOsm/kg 280-300 H code = osmolality calculated,serum) creatinine (test code = 2.1 mg/dL 0.50-0.90 H creatinine) glomerular filtration rate (test 22.55 L code = glomerular filtration rate) Urea nitrogen/Creatinine [Mass 37.1 12-20 H Ratio] in Serum or Plasma (test code = 3097-3) sodium level (test code = sodium 142 mmol/L 135-145 level) potassium level (test code = 4.5 mmol/L 3.5-5.2 potassium level) chloride level (test code = 108 mmol/L 98-108 chloride level) CO2 (test code = CO2) 21 mmol/L 21-32 anion gap (test code = anion gap) 17.5 mEq/L 12-20 calcium level (test code = 8.1 mg/dL 8.8-10.2 L calcium level) total protein (test code = total 6.6 g/dL 6.6-8.7 protein) albumin (test code = albumin) 3.4 g/dL 3.5-5.2 L globulin (test code = globulin) 3.2 gm/dL A/G ratio (test code = A/G ratio) 1.1 >1.0 bilirubin,total (test code = <0.3 0.0-1.2 bilirubin,total) AST/SGOT (test code = AST/SGOT) 24 U/L 15-32 Alanine aminotransferase 18 U/L 0-33 [Enzymatic activity/volume] in Serum or Plasma (test code = 1742-6) Alkaline phosphatase [Enzymatic 97 U/L 35-105 activity/volume] in Serum or Plasma (test code = 6768-6) [facility] W Auto Differential panel - [id number] 05:44:00 Test Item Value Reference Range Interpretation Comments white blood count (test code = 6.3 K/uL 4.0-11.5 white blood count) red blood count (test code = red 3.05 M/uL 3.80-5.20 L blood count) hemoglobin (test code = 10.3 g/dL 10.5-15.7 L hemoglobin) hematocrit (test code = 32.9 % 34.0-50.0 L hematocrit) MCV [Entitic volume] (test code = 107.9 fL 86-100 H 32962-9) mean corpuscular hemoglobin (test 33.8 pg 26.2-33.4 H code = mean corpuscular hemoglobin) mean corpuscular HGB conc (test 31.3 g/dL 30-34 code = mean corpuscular HGB conc) red cell distribution width (test 13.9 % 12.0-15.5 code = red cell distribution width) platelet count (test code = 243 K/uL 165-450 platelet count) mean platelet volume (test code = 9.3 fL 9.4-12.6 L mean platelet volume) Segmented neutrophils/100 54.4 % 44.4-80.1 leukocytes in Blood (test code = 25293-2) Immature granulocytes [#/volume] 0.0 K/uL 0.0-0.03 in Blood (test code = 99494-7) lymphocyte% (test code = 27.4 % 10.0-50.0 lymphocyte%) mono % (test code = mono %) 12.3 % 3.6-12.0 H eos % (test code = eos %) 4.6 % 0.0-5.4 Basophils/100 leukocytes in 1.0 % 0.1-1.2 Unspecified specimen (test code = 47472-9) Band form neutrophils [#/volume] 3.40 K/uL 1.56-6.13 in Blood (test code = 90177-4) Lymphocytes [#/volume] in 1.7 K/uL 1.18-3.74 Unspecified specimen by Automated count (test code = 32277-1) mono # (test code = mono #) 0.77 K/uL 0.24-0.86 eos # (test code = eos #) 0.29 K/uL 0.04-0.36 basophil # (test code = basophil 0.06 K/uL 0.01-0.08 #) NRBC% (test code = NRBC%) 0 /100 WBC 0-0.2 NRBC# (test code = NRBC#) 0 K/uL [facility] - [facility] or Plasma 2021-10-28 05:44:00 Test Item Value Reference Range Interpretation Comments Glucose [Mass/volume] in Serum or 84 mg/dL 82-115 Plasma (test code = 2345-7) Urea nitrogen [Mass/volume] in 78 mg/dL 8-23 H Serum or Plasma (test code = 3094-0) osmolality calculated,serum (test 306 mOsm/kg 280-300 H code = osmolality calculated,serum) creatinine (test code = 2.1 mg/dL 0.50-0.90 H creatinine) glomerular filtration rate (test 22.55 L code = glomerular filtration rate) Urea nitrogen/Creatinine [Mass 37.1 12-20 H Ratio] in Serum or Plasma (test code = 3097-3) sodium level (test code = sodium 142 mmol/L 135-145 level) potassium level (test code = 4.5 mmol/L 3.5-5.2 potassium level) chloride level (test code = 108 mmol/L 98-108 chloride level) CO2 (test code = CO2) 21 mmol/L 21-32 anion gap (test code = anion gap) 17.5 mEq/L 12-20 calcium level (test code = 8.1 mg/dL 8.8-10.2 L calcium level) total protein (test code = total 6.6 g/dL 6.6-8.7 protein) albumin (test code = albumin) 3.4 g/dL 3.5-5.2 L globulin (test code = globulin) 3.2 gm/dL A/G ratio (test code = A/G ratio) 1.1 >1.0 bilirubin,total (test code = <0.3 0.0-1.2 bilirubin,total) AST/SGOT (test code = AST/SGOT) 24 U/L 15-32 Alanine aminotransferase 18 U/L 0-33 [Enzymatic activity/volume] in Serum or Plasma (test code = 1742-6) Alkaline phosphatase [Enzymatic 97 U/L 35-105 activity/volume] in Serum or Plasma (test code = 6768-6) [facility]2021-12-18 02:45:00 Test Item Value Reference Range Interpretation Comments Cortisol [Mass/volume] in Serum or 13.6 ug/dL 2.3-11.9 H Plasma --PM trough specimen (test code = 9812-9) [facility]2021-12-18 02:45:00 Test Item Value Reference Range Interpretation Comments Cortisol [Mass/volume] in Serum or 13.6 ug/dL 2.3-11.9 H Plasma --PM trough specimen (test code = 9812-9) [facility]2021-12-18 00:00:00 Test Item Value Reference Range Interpretation Comments Cortisol [Mass/volume] in Serum or 2.7 ug/dL 2.3-11.9 Plasma --PM trough specimen (test code = 9812-9) [facility]2021-12-18 00:00:00 Test Item Value Reference Range Interpretation Comments Cortisol [Mass/volume] in Serum or 11.2 ug/dL 2.3-11.9 Plasma --PM trough specimen (test code = 9812-9) [facility] [Enzymatic activity/volume] in Serum or [id number] 00:00:00 Test Item Value Reference Range Interpretation Comments creatine kinase (test code = creatine 46 U/L 20-180 kinase) [facility]2021-12-18 00:00:00 Test Item Value Reference Range Interpretation Comments Cortisol [Mass/volume] in Serum or 2.7 ug/dL 2.3-11.9 Plasma --PM trough specimen (test code = 9812-9) [facility]2021-12-18 00:00:00 Test Item Value Reference Range Interpretation Comments Cortisol [Mass/volume] in Serum or 11.2 ug/dL 2.3-11.9 Plasma --PM trough specimen (test code = 9812-9) [facility] W Auto Differential panel - [id number] 02:10:00 Test Item Value Reference Range Interpretation Comments white blood count (test code = 5.2 K/uL 4.0-11.5 white blood count) red blood count (test code = red 3.02 M/uL 3.80-5.20 L blood count) hemoglobin (test code = 10.3 g/dL 10.5-15.7 L hemoglobin) hematocrit (test code = 31.9 % 34.0-50.0 L hematocrit) MCV [Entitic volume] (test code = 105.6 fL 86-100 H 97484-1) mean corpuscular hemoglobin (test 34.1 pg 26.2-33.4 H code = mean corpuscular hemoglobin) mean corpuscular HGB conc (test 32.3 g/dL 30-34 code = mean corpuscular HGB conc) red cell distribution width (test 13.9 % 12.0-15.5 code = red cell distribution width) platelet count (test code = 262 K/uL 165-450 platelet count) mean platelet volume (test code = 9.1 fL 9.4-12.6 L mean platelet volume) Segmented neutrophils/100 48.0 % 44.4-80.1 leukocytes in Blood (test code = 68908-9) Immature granulocytes [#/volume] 0.0 K/uL 0.0-0.03 in Blood (test code = 55720-2) lymphocyte% (test code = 31.5 % 10.0-50.0 lymphocyte%) mono % (test code = mono %) 13.5 % 3.6-12.0 H eos % (test code = eos %) 5.4 % 0.0-5.4 Basophils/100 leukocytes in 1.4 % 0.1-1.2 H Unspecified specimen (test code = 50588-5) Band form neutrophils [#/volume] 2.48 K/uL 1.56-6.13 in Blood (test code = 07595-9) Lymphocytes [#/volume] in 1.6 K/uL 1.18-3.74 Unspecified specimen by Automated count (test code = 14325-5) mono # (test code = mono #) 0.70 K/uL 0.24-0.86 eos # (test code = eos #) 0.28 K/uL 0.04-0.36 basophil # (test code = basophil 0.07 K/uL 0.01-0.08 #) NRBC% (test code = NRBC%) 0 /100 WBC 0-0.2 NRBC# (test code = NRBC#) 0 K/uL [facility] metabolic 2000 panel - Serum or [id number] 02:10:00 Test Item Value Reference Range Interpretation Comments Glucose [Mass/volume] in Serum or 89 mg/dL 82-115 Plasma (test code = 2345-7) Urea nitrogen [Mass/volume] in 90 mg/dL 8-23 Serum or Plasma (test code = 3094-0) osmolality calculated,serum (test 311 mOsm/kg 280-300 H code = osmolality calculated,serum) creatinine (test code = 2.3 mg/dL 0.50-0.90 H creatinine) glomerular filtration rate (test 20.30 L code = glomerular filtration rate) Urea nitrogen/Creatinine [Mass 39.1 12-20 H Ratio] in Serum or Plasma (test code = 3097-3) sodium level (test code = sodium 142 mmol/L 135-145 level) potassium level (test code = 4.3 mmol/L 3.5-5.2 potassium level) chloride level (test code = 106 mmol/L 98-108 chloride level) CO2 (test code = CO2) 24 mmol/L 21-32 anion gap (test code = anion gap) 16.3 mEq/L 12-20 calcium level (test code = 8.1 mg/dL 8.8-10.2 L calcium level) [facility] W Auto Differential panel - [id number] 02:10:00 Test Item Value Reference Range Interpretation Comments white blood count (test code = 5.2 K/uL 4.0-11.5 white blood count) red blood count (test code = red 3.02 M/uL 3.80-5.20 L blood count) hemoglobin (test code = 10.3 g/dL 10.5-15.7 L hemoglobin) hematocrit (test code = 31.9 % 34.0-50.0 L hematocrit) MCV [Entitic volume] (test code = 105.6 fL 86-100 H 87430-3) mean corpuscular hemoglobin (test 34.1 pg 26.2-33.4 H code = mean corpuscular hemoglobin) mean corpuscular HGB conc (test 32.3 g/dL 30-34 code = mean corpuscular HGB conc) red cell distribution width (test 13.9 % 12.0-15.5 code = red cell distribution width) platelet count (test code = 262 K/uL 165-450 platelet count) mean platelet volume (test code = 9.1 fL 9.4-12.6 L mean platelet volume) Segmented neutrophils/100 48.0 % 44.4-80.1 leukocytes in Blood (test code = 35839-8) Immature granulocytes [#/volume] 0.0 K/uL 0.0-0.03 in Blood (test code = 43518-9) lymphocyte% (test code = 31.5 % 10.0-50.0 lymphocyte%) mono % (test code = mono %) 13.5 % 3.6-12.0 H eos % (test code = eos %) 5.4 % 0.0-5.4 Basophils/100 leukocytes in 1.4 % 0.1-1.2 H Unspecified specimen (test code = 38501-7) Band form neutrophils [#/volume] 2.48 K/uL 1.56-6.13 in Blood (test code = 25334-8) Lymphocytes [#/volume] in 1.6 K/uL 1.18-3.74 Unspecified specimen by Automated count (test code = 59321-7) mono # (test code = mono #) 0.70 K/uL 0.24-0.86 eos # (test code = eos #) 0.28 K/uL 0.04-0.36 basophil # (test code = basophil 0.07 K/uL 0.01-0.08 #) NRBC% (test code = NRBC%) 0 /100 WBC 0-0.2 NRBC# (test code = NRBC#) 0 K/uL [facility] metabolic 2000 panel - Serum or [id number] 02:10:00 Test Item Value Reference Range Interpretation Comments Glucose [Mass/volume] in Serum or 89 mg/dL 82-115 Plasma (test code = 2345-7) Urea nitrogen [Mass/volume] in 90 mg/dL 8-23 Serum or Plasma (test code = 3094-0) osmolality calculated,serum (test 311 mOsm/kg 280-300 H code = osmolality calculated,serum) creatinine (test code = 2.3 mg/dL 0.50-0.90 H creatinine) glomerular filtration rate (test 20.30 L code = glomerular filtration rate) Urea nitrogen/Creatinine [Mass 39.1 12-20 H Ratio] in Serum or Plasma (test code = 3097-3) sodium level (test code = sodium 142 mmol/L 135-145 level) potassium level (test code = 4.3 mmol/L 3.5-5.2 potassium level) chloride level (test code = 106 mmol/L 98-108 chloride level) CO2 (test code = CO2) 24 mmol/L 21-32 anion gap (test code = anion gap) 16.3 mEq/L 12-20 calcium level (test code = 8.1 mg/dL 8.8-10.2 L calcium level) [facility] - Serum or [id number] 02:10:00 Test Item Value Reference Range Interpretation Comments total protein (test code = total 6.8 g/dL 6.6-8.7 protein) albumin (test code = albumin) 3.6 g/dL 3.5-5.2 bilirubin,total (test code = <0.3 0.0-1.2 bilirubin,total) Bilirubin.direct [Mass/volume] in <0.20 0.0-0.3 Serum or Plasma (test code = 1968-7) AST/SGOT (test code = AST/SGOT) 25 U/L 15-32 Alanine aminotransferase [Enzymatic 16 U/L 0-33 activity/volume] in Serum or Plasma (test code = 1742-6) Alkaline phosphatase [Enzymatic 113 U/L 35-105 H activity/volume] in Serum or Plasma (test code = 6768-6) [facility], method unspecified - [id number] 00:00:00NeutrophilsBandLymphocyteAtypical LymphMonocyteEosinophilBasophilAbs Neutrophil Count (Man)Abs LymphCount (Man)Abs Monocyte Count (Man)Abs Eosinophil Count (Man)Abs Basophil Count (Man)Platelet EstimatePlatelet MorphologyAnisocytosisMississippi State HospitalDifferential panel, method unspecified - [id number] 00:00:00NeutrophilsBandLymphocyteAtypical LymphMonocyteEosinophilBasophilAbs Neutrophil Count (Man)Abs LymphCount (Man)Abs Monocyte Count (Man)Abs Eosinophil Count (Man)Abs Basophil Count (Man)Platelet EstimatePlatelet MorphologyAnisocytosisMississippi State HospitalPrealbumin [Mass/volume] in Serum or [id number] 00:00:00 Test Item Value Reference Range Interpretation Comments pre-albumin (test code = 25.0 mg/dL 20-40 pre-albumin) [facility] HospitalThyrotropin [Units/volume] in Serum or [id number] 00:00:00 Test Item Value Reference Range Interpretation Comments Thyrotropin [Units/volume] in 1.01 uIU/mL 0.36-3.74 Serum or Plasma (test code = 3016-3) [facility] [id number] 00:00[facility]00 Test Item Value Reference Range Interpretation Comments Troponin T.cardiac [Mass/volume] in <0.01 0-0.011 Blood (test code = 50196-4) [facility] W Auto Differential panel - [id number] 09:58:00 Test Item Value Reference Range Interpretation Comments white blood count (test code = 4.4 K/uL 4.0-11.5 white blood count) red blood count (test code = red 3.28 M/uL 3.80-5.20 L blood count) hemoglobin (test code = 11.1 g/dL 10.5-15.7 hemoglobin) hematocrit (test code = 35.7 % 34.0-50.0 hematocrit) MCV [Entitic volume] (test code = 108.8 fL 86-100 H 07313-5) mean corpuscular hemoglobin (test 33.8 pg 26.2-33.4 H code = mean corpuscular hemoglobin) mean corpuscular HGB conc (test 31.1 g/dL 30-34 code = mean corpuscular HGB conc) red cell distribution width (test 14.7 % 12.0-15.5 code = red cell distribution width) platelet count (test code = 401 K/uL 165-450 platelet count) mean platelet volume (test code = 8.7 fL 9.4-12.6 L mean platelet volume) Segmented neutrophils/100 43.6 % 44.4-80.1 L leukocytes in Blood (test code = 03626-5) Immature granulocytes [#/volume] 0.0 K/uL 0.0-0.03 H in Blood (test code = 98259-4) lymphocyte% (test code = 31.6 % 10.0-50.0 lymphocyte%) mono % (test code = mono %) 15.7 % 3.6-12.0 H eos % (test code = eos %) 7.0 % 0.0-5.4 H Basophils/100 leukocytes in 1.6 % 0.1-1.2 H Unspecified specimen (test code = 40579-0) Band form neutrophils [#/volume] 1.92 K/uL 1.56-6.13 in Blood (test code = 12050-5) Lymphocytes [#/volume] in 1.4 K/uL 1.18-3.74 Unspecified specimen by Automated count (test code = 99724-0) mono # (test code = mono #) 0.69 K/uL 0.24-0.86 eos # (test code = eos #) 0.31 K/uL 0.04-0.36 basophil # (test code = basophil 0.07 K/uL 0.01-0.08 #) NRBC% (test code = NRBC%) 0 /100 WBC 0-0.2 NRBC# (test code = NRBC#) 0 K/uL [facility] metabolic 2000 panel - Serum or [id number] 09:58:00 Test Item Value Reference Range Interpretation Comments glucose (test code = glucose) 86 mg/dL 82-115 Urea nitrogen [Mass/volume] in 43 mg/dL 8-23 H Serum or Plasma (test code = 3094-0) osmolality calculated,serum (test 288 mOsm/kg 280-300 code = osmolality calculated,serum) creatinine (test code = 1.5 mg/dL 0.50-0.90 H creatinine) glomerular filtration rate (test 33.25 L code = glomerular filtration rate) Urea nitrogen/Creatinine [Mass 28.7 12-20 H Ratio] in Serum or Plasma (test code = 3097-3) sodium level (test code = sodium 139 mmol/L 135-145 level) Potassium [Moles/volume] in Body 4.4 mmol/L 3.5-5.2 fluid (test code = 2821-7) chloride level (test code = 99 mmol/L 98-108 chloride level) CO2 (test code = CO2) 28 mmol/L 21-32 anion gap (test code = anion gap) 16.4 mEq/L 12-20 calcium level (test code = 9.9 mg/dL 8.8-10.2 calcium level) [facility] or [id number] 09:58:00 Test Item Value Reference Range Interpretation Comments cholesterol level (test code = 178 mg/dL 150-200 cholesterol level) triglycerides level (test code = 166 mg/dL <150 H triglycerides level) HDL cholesterol (test code = HDL 67 mg/dL >65 cholesterol) LDL cholesterol direct (test code = 80 mg/dL <100 LDL cholesterol direct) cholesterol risk ratio (test code = 2.656 cholesterol risk ratio) [facility] W Auto Differential panel - [id number] 09:58:00 Test Item Value Reference Range Interpretation Comments white blood count (test code = 4.4 K/uL 4.0-11.5 white blood count) red blood count (test code = red 3.28 M/uL 3.80-5.20 L blood count) hemoglobin (test code = 11.1 g/dL 10.5-15.7 hemoglobin) hematocrit (test code = 35.7 % 34.0-50.0 hematocrit) MCV [Entitic volume] (test code = 108.8 fL 86-100 H 19622-8) mean corpuscular hemoglobin (test 33.8 pg 26.2-33.4 H code = mean corpuscular hemoglobin) mean corpuscular HGB conc (test 31.1 g/dL 30-34 code = mean corpuscular HGB conc) red cell distribution width (test 14.7 % 12.0-15.5 code = red cell distribution width) platelet count (test code = 401 K/uL 165-450 platelet count) mean platelet volume (test code = 8.7 fL 9.4-12.6 L mean platelet volume) Segmented neutrophils/100 43.6 % 44.4-80.1 L leukocytes in Blood (test code = 72194-3) Immature granulocytes [#/volume] 0.0 K/uL 0.0-0.03 H in Blood (test code = 50549-6) lymphocyte% (test code = 31.6 % 10.0-50.0 lymphocyte%) mono % (test code = mono %) 15.7 % 3.6-12.0 H eos % (test code = eos %) 7.0 % 0.0-5.4 H Basophils/100 leukocytes in 1.6 % 0.1-1.2 H Unspecified specimen (test code = 72006-8) Band form neutrophils [#/volume] 1.92 K/uL 1.56-6.13 in Blood (test code = 41131-4) Lymphocytes [#/volume] in 1.4 K/uL 1.18-3.74 Unspecified specimen by Automated count (test code = 40580-8) mono # (test code = mono #) 0.69 K/uL 0.24-0.86 eos # (test code = eos #) 0.31 K/uL 0.04-0.36 basophil # (test code = basophil 0.07 K/uL 0.01-0.08 #) NRBC% (test code = NRBC%) 0 /100 WBC 0-0.2 NRBC# (test code = NRBC#) 0 K/uL [facility] metabolic 2000 panel - Serum or [id number] 09:58:00 Test Item Value Reference Range Interpretation Comments glucose (test code = glucose) 86 mg/dL 82-115 Urea nitrogen [Mass/volume] in 43 mg/dL 8-23 H Serum or Plasma (test code = 3094-0) osmolality calculated,serum (test 288 mOsm/kg 280-300 code = osmolality calculated,serum) creatinine (test code = 1.5 mg/dL 0.50-0.90 H creatinine) glomerular filtration rate (test 33.25 L code = glomerular filtration rate) Urea nitrogen/Creatinine [Mass 28.7 12-20 H Ratio] in Serum or Plasma (test code = 3097-3) sodium level (test code = sodium 139 mmol/L 135-145 level) Potassium [Moles/volume] in Body 4.4 mmol/L 3.5-5.2 fluid (test code = 2821-7) chloride level (test code = 99 mmol/L 98-108 chloride level) CO2 (test code = CO2) 28 mmol/L 21-32 anion gap (test code = anion gap) 16.4 mEq/L 12-20 calcium level (test code = 9.9 mg/dL 8.8-10.2 calcium level) [facility] - [facility] or [id number] 09:58:00 Test Item Value Reference Range Interpretation Comments cholesterol level (test code = 178 mg/dL 150-200 cholesterol level) triglycerides level (test code = 166 mg/dL <150 H triglycerides level) HDL cholesterol (test code = HDL 67 mg/dL >65 cholesterol) LDL cholesterol direct (test code = 80 mg/dL <100 LDL cholesterol direct) cholesterol risk ratio (test code = 2.656 cholesterol risk ratio) [facility], method unspecified - [id number] 00:00:00NeutrophilsBandLymphocyteAtypical LymphMonocyteEosinophilBasophilNucleated Red Blood CellAbs Neutrophil Count (Man)Abs Lymph Count (Man)Abs Monocyte Count (Man)Abs Eosinophil Count (Man)Abs Basophil Count (Man)Platelet EstimatePlatelet MorphologyAnisocytosisMississippi State HospitalDifferential panel, method unspecified - [id number] 00:00:00 NeutrophilsBandLymphocyteAtypical LymphMonocyteEosinophilBasophilNucleated Red Blood CellAbs Neutrophil Count (Man)Abs Lymph Count (Man)Abs Monocyte Count (Man)Abs Eosinophil Count (Man)Abs Basophil Count (Man)Platelet EstimatePlatelet MorphologyAnisocytosisMississippi [facility] HospitalComprehensive metabolic 2000 panel - Serum or [id number] 09:19:00 Test Item Value Reference Range Interpretation Comments glucose (test code = glucose) 112 mg/dL 82-115 Urea nitrogen [Mass/volume] in 56 mg/dL 8-23 H Serum or Plasma (test code = 3094-0) osmolality calculated,serum (test 285 mOsm/kg 280-300 code = osmolality calculated,serum) creatinine (test code = 1.5 mg/dL 0.50-0.90 H creatinine) glomerular filtration rate (test 33.25 L code = glomerular filtration rate) Urea nitrogen/Creatinine [Mass 37.3 12-20 H Ratio] in Serum or Plasma (test code = 3097-3) sodium level (test code = sodium 134 mmol/L 135-145 L level) Potassium [Moles/volume] in Body 4.1 mmol/L 3.5-5.2 fluid (test code = 2821-7) chloride level (test code = 96 mmol/L 98-108 L chloride level) CO2 (test code = CO2) 25 mmol/L 21-32 anion gap (test code = anion gap) 17.1 mEq/L 12-20 calcium level (test code = 9.3 mg/dL 8.8-10.2 calcium level) total protein (test code = total 6.7 g/dL 6.6-8.7 protein) albumin (test code = albumin) 3.3 g/dL 3.5-5.2 L globulin (test code = globulin) 3.4 gm/dL A/G ratio (test code = A/G ratio) 1.0 >1.0 bilirubin,total (test code = 0.7 mg/dL 0.0-1.2 bilirubin,total) AST/SGOT (test code = AST/SGOT) 481 U/L 15-32 Alanine aminotransferase 472 U/L 0-33 H [Enzymatic activity/volume] in Serum or Plasma (test code = 1742-6) Alkaline phosphatase [Enzymatic 273 U/L 35-105 H activity/volume] in Serum or Plasma (test code = 6768-6) [facility] - Serum or Plasma 2021-10-10 09:19:00 Test Item Value Reference Range Interpretation Comments glucose (test code = glucose) 112 mg/dL 82-115 Urea nitrogen [Mass/volume] in 56 mg/dL 8-23 H Serum or Plasma (test code = 3094-0) osmolality calculated,serum (test 285 mOsm/kg 280-300 code = osmolality calculated,serum) creatinine (test code = 1.5 mg/dL 0.50-0.90 H creatinine) glomerular filtration rate (test 33.25 L code = glomerular filtration rate) Urea nitrogen/Creatinine [Mass 37.3 12-20 H Ratio] in Serum or Plasma (test code = 3097-3) sodium level (test code = sodium 134 mmol/L 135-145 L level) Potassium [Moles/volume] in Body 4.1 mmol/L 3.5-5.2 fluid (test code = 2821-7) chloride level (test code = 96 mmol/L 98-108 L chloride level) CO2 (test code = CO2) 25 mmol/L 21-32 anion gap (test code = anion gap) 17.1 mEq/L 12-20 calcium level (test code = 9.3 mg/dL 8.8-10.2 calcium level) total protein (test code = total 6.7 g/dL 6.6-8.7 protein) albumin (test code = albumin) 3.3 g/dL 3.5-5.2 L globulin (test code = globulin) 3.4 gm/dL A/G ratio (test code = A/G ratio) 1.0 >1.0 bilirubin,total (test code = 0.7 mg/dL 0.0-1.2 bilirubin,total) AST/SGOT (test code = AST/SGOT) 481 U/L 15-32 Alanine aminotransferase 472 U/L 0-33 H [Enzymatic activity/volume] in Serum or Plasma (test code = 1742-6) Alkaline phosphatase [Enzymatic 273 U/L 35-105 H activity/volume] in Serum or Plasma (test code = 6768-6) [facility] W Auto Differential panel - [id number] 04:38:00 Test Item Value Reference Range Interpretation Comments white blood count (test code = 3.5 K/uL 4.0-11.5 L white blood count) red blood count (test code = red 3.10 M/uL 3.80-5.20 L blood count) hemoglobin (test code = 10.5 g/dL 10.5-15.7 hemoglobin) hematocrit (test code = 33.6 % 34.0-50.0 L hematocrit) MCV [Entitic volume] (test code = 108.4 fL 86-100 H 68293-4) mean corpuscular hemoglobin (test 33.9 pg 26.2-33.4 H code = mean corpuscular hemoglobin) mean corpuscular HGB conc (test 31.3 g/dL 30-34 code = mean corpuscular HGB conc) red cell distribution width (test 14.1 % 12.0-15.5 code = red cell distribution width) platelet count (test code = 153 K/uL 165-450 L platelet count) mean platelet volume (test code = 9.2 fL 9.4-12.6 L mean platelet volume) Segmented neutrophils/100 35.4 % 44.4-80.1 L leukocytes in Blood (test code = 36030-5) Immature granulocytes [#/volume] 0.0 K/uL 0.0-0.03 in Blood (test code = 17908-9) lymphocyte% (test code = 40.2 % 10.0-50.0 lymphocyte%) mono % (test code = mono %) 18.1 % 3.6-12.0 H eos % (test code = eos %) 4.6 % 0.0-5.4 Basophils/100 leukocytes in 1.4 % 0.1-1.2 H Unspecified specimen (test code = 96378-4) Band form neutrophils [#/volume] 1.23 K/uL 1.56-6.13 L in Blood (test code = 41724-0) Lymphocytes [#/volume] in 1.4 K/uL 1.18-3.74 Unspecified specimen by Automated count (test code = 89837-3) mono # (test code = mono #) 0.63 K/uL 0.24-0.86 eos # (test code = eos #) 0.16 K/uL 0.04-0.36 basophil # (test code = basophil 0.05 K/uL 0.01-0.08 #) NRBC% (test code = NRBC%) 0 /100 WBC 0-0.2 NRBC# (test code = NRBC#) 0 K/uL [facility] - Serum or Plasma 2021-10-09 04:38:00 Test Item Value Reference Range Interpretation Comments Glucose [Mass/volume] in Serum or 103 mg/dL 82-115 Plasma (test code = 2345-7) Urea nitrogen [Mass/volume] in 57 mg/dL 8-23 H Serum or Plasma (test code = 3094-0) osmolality calculated,serum (test 288 mOsm/kg 280-300 code = osmolality calculated,serum) creatinine (test code = 1.5 mg/dL 0.50-0.90 H creatinine) glomerular filtration rate (test 33.25 L code = glomerular filtration rate) Urea nitrogen/Creatinine [Mass 38.0 12-20 H Ratio] in Serum or Plasma (test code = 3097-3) sodium level (test code = sodium 136 mmol/L 135-145 level) potassium level (test code = 4.2 mmol/L 3.5-5.2 potassium level) chloride level (test code = 98 mmol/L 98-108 chloride level) CO2 (test code = CO2) 25 mmol/L 21-32 anion gap (test code = anion gap) 17.2 mEq/L 12-20 calcium level (test code = 9.2 mg/dL 8.8-10.2 calcium level) total protein (test code = total 6.4 g/dL 6.6-8.7 L protein) albumin (test code = albumin) 3.3 g/dL 3.5-5.2 L globulin (test code = globulin) 3.1 gm/dL A/G ratio (test code = A/G ratio) 1.1 >1.0 bilirubin,total (test code = 0.7 mg/dL 0.0-1.2 bilirubin,total) AST/SGOT (test code = AST/SGOT) 899 U/L 15-32 Alanine aminotransferase 588 U/L 0-33 H [Enzymatic activity/volume] in Serum or Plasma (test code = 1742-6) Alkaline phosphatase [Enzymatic 238 U/L 35-105 H activity/volume] in Serum or Plasma (test code = 6768-6) [facility] HospitalMagnesium [Moles/volume] in Unspecified specimen 2021-10-09 00:00:00 Test Item Value Reference Range Interpretation Comments magnesium level (test code = 2.1 mg/dL 1.6-2.4 magnesium level) [facility] W Auto Differential panel - [id number] 09:34:00 Test Item Value Reference Range Interpretation Comments white blood count (test code = 4.7 K/uL 4.0-11.5 white blood count) red blood count (test code = red 3.62 M/uL 3.80-5.20 L blood count) hemoglobin (test code = 12.2 g/dL 10.5-15.7 hemoglobin) hematocrit (test code = 38.8 % 34.0-50.0 hematocrit) MCV [Entitic volume] (test code = 107.2 fL 86-100 H 67484-9) mean corpuscular hemoglobin (test 33.7 pg 26.2-33.4 H code = mean corpuscular hemoglobin) mean corpuscular HGB conc (test 31.4 g/dL 30-34 code = mean corpuscular HGB conc) red cell distribution width (test 13.9 % 12.0-15.5 code = red cell distribution width) platelet count (test code = 191 K/uL 165-450 platelet count) mean platelet volume (test code = 9.3 fL 9.4-12.6 L mean platelet volume) Segmented neutrophils/100 50.2 % 44.4-80.1 leukocytes in Blood (test code = 85799-5) Immature granulocytes [#/volume] 0.0 K/uL 0.0-0.03 in Blood (test code = 14660-8) lymphocyte% (test code = 36.5 % 10.0-50.0 lymphocyte%) mono % (test code = mono %) 9.2 % 3.6-12.0 eos % (test code = eos %) 2.6 % 0.0-5.4 Basophils/100 leukocytes in 1.3 % 0.1-1.2 H Unspecified specimen (test code = 20027-9) Band form neutrophils [#/volume] 2.36 K/uL 1.56-6.13 in Blood (test code = 94229-9) Lymphocytes [#/volume] in 1.7 K/uL 1.18-3.74 Unspecified specimen by Automated count (test code = 28481-3) mono # (test code = mono #) 0.43 K/uL 0.24-0.86 eos # (test code = eos #) 0.12 K/uL 0.04-0.36 basophil # (test code = basophil 0.06 K/uL 0.01-0.08 #) NRBC% (test code = NRBC%) 0 /100 WBC 0-0.2 NRBC# (test code = NRBC#) 0 K/uL [facility] - Serum or [id number] 09:34:00 Test Item Value Reference Range Interpretation Comments glucose (test code = glucose) 89 mg/dL 82-115 Urea nitrogen [Mass/volume] in 60 mg/dL 8-23 H Serum or Plasma (test code = 3094-0) osmolality calculated,serum (test 290 mOsm/kg 280-300 code = osmolality calculated,serum) creatinine (test code = 1.5 mg/dL 0.50-0.90 H creatinine) glomerular filtration rate (test 33.25 L code = glomerular filtration rate) Urea nitrogen/Creatinine [Mass 40.0 12-20 H Ratio] in Serum or Plasma (test code = 3097-3) sodium level (test code = sodium 137 mmol/L 135-145 level) Potassium [Moles/volume] in Body 5.1 mmol/L 3.5-5.2 fluid (test code = 2821-7) chloride level (test code = 98 mmol/L 98-108 chloride level) CO2 (test code = CO2) 22 mmol/L 21-32 anion gap (test code = anion gap) 22.1 mEq/L 12-20 H calcium level (test code = 10.0 mg/dL 8.8-10.2 calcium level) [facility], method unspecified - [id number] 00:00:00NeutrophilsBandLymphocyteAtypical LymphMonocyteEosinophilBasophilAbs Neutrophil Count (Man)Abs LymphCount (Man)Abs Monocyte Count (Man)Abs Eosinophil Count (Man)Abs Basophil Count (Man)Platelet EstimatePlatelet Morphology [facility] W Auto Differential panel - [id number] 03:35:00 Test Item Value Reference Range Interpretation Comments white blood count (test code = 5.6 K/uL 4.0-11.5 white blood count) red blood count (test code = red 3.29 M/uL 3.80-5.20 L blood count) hemoglobin (test code = 11.0 g/dL 10.5-15.7 hemoglobin) hematocrit (test code = 35.4 % 34.0-50.0 hematocrit) MCV [Entitic volume] (test code = 107.6 fL 86-100 H 23783-1) mean corpuscular hemoglobin (test 33.4 pg 26.2-33.4 code = mean corpuscular hemoglobin) mean corpuscular HGB conc (test 31.1 g/dL 30-34 code = mean corpuscular HGB conc) red cell distribution width (test 14.1 % 12.0-15.5 code = red cell distribution width) platelet count (test code = 190 K/uL 165-450 platelet count) mean platelet volume (test code = 9.4 fL 9.4-12.6 mean platelet volume) Segmented neutrophils/100 50.9 % 44.4-80.1 leukocytes in Blood (test code = 97469-0) Immature granulocytes [#/volume] 0.0 K/uL 0.0-0.03 in Blood (test code = 10795-6) lymphocyte% (test code = 26.7 % 10.0-50.0 lymphocyte%) mono % (test code = mono %) 15.4 % 3.6-12.0 H eos % (test code = eos %) 5.7 % 0.0-5.4 H Basophils/100 leukocytes in 1.1 % 0.1-1.2 Unspecified specimen (test code = 70137-8) Band form neutrophils [#/volume] 2.85 K/uL 1.56-6.13 in Blood (test code = 56824-6) Lymphocytes [#/volume] in 1.5 K/uL 1.18-3.74 Unspecified specimen by Automated count (test code = 43331-8) mono # (test code = mono #) 0.86 K/uL 0.24-0.86 eos # (test code = eos #) 0.32 K/uL 0.04-0.36 basophil # (test code = basophil 0.06 K/uL 0.01-0.08 #) NRBC% (test code = NRBC%) 0 /100 WBC 0-0.2 NRBC# (test code = NRBC#) 0 K/uL [facility] metabolic 2000 panel - Serum or [id number] 03:35:00 Test Item Value Reference Range Interpretation Comments Glucose [Mass/volume] in Serum or 98 mg/dL 82-115 Plasma (test code = 2345-7) Urea nitrogen [Mass/volume] in 67 mg/dL 8-23 H Serum or Plasma (test code = 3094-0) osmolality calculated,serum (test 303 mOsm/kg 280-300 H code = osmolality calculated,serum) creatinine (test code = 1.8 mg/dL 0.50-0.90 H creatinine) glomerular filtration rate (test 26.94 L code = glomerular filtration rate) Urea nitrogen/Creatinine [Mass 37.2 12-20 H Ratio] in Serum or Plasma (test code = 3097-3) sodium level (test code = sodium 142 mmol/L 135-145 level) potassium level (test code = 4.7 mmol/L 3.5-5.2 potassium level) chloride level (test code = 107 mmol/L 98-108 chloride level) CO2 (test code = CO2) 23 mmol/L 21-32 anion gap (test code = anion gap) 16.7 mEq/L 12-20 calcium level (test code = 9.3 mg/dL 8.8-10.2 calcium level) [facility], method unspecified - [id number] 00:00:00NeutrophilsBandLymphocyteAtypical LymphMonocyteEosinophilBasophilAbs Neutrophil Count (Man)Abs LymphCount (Man)Abs Monocyte Count (Man)Abs Eosinophil Count (Man)Abs Basophil Count (Man)Platelet EstimatePlatelet MorphologyMaPerry [facility] Auto Differential panel - [id number] 08:49:00 Test Item Value Reference Range Interpretation Comments white blood count (test code = 4.3 K/uL 4.0-11.5 white blood count) red blood count (test code = red 3.18 M/uL 3.80-5.20 L blood count) hemoglobin (test code = 10.6 g/dL 10.5-15.7 hemoglobin) hematocrit (test code = 34.4 % 34.0-50.0 hematocrit) MCV [Entitic volume] (test code = 108.2 fL 86-100 H 31397-4) mean corpuscular hemoglobin (test 33.3 pg 26.2-33.4 code = mean corpuscular hemoglobin) mean corpuscular HGB conc (test 30.8 g/dL 30-34 code = mean corpuscular HGB conc) red cell distribution width (test 14.0 % 12.0-15.5 code = red cell distribution width) platelet count (test code = 185 K/uL 165-450 platelet count) mean platelet volume (test code = 9.4 fL 9.4-12.6 mean platelet volume) Segmented neutrophils/100 30.2 % 44.4-80.1 L leukocytes in Blood (test code = 46475-7) Immature granulocytes [#/volume] 0.0 K/uL 0.0-0.03 in Blood (test code = 97239-6) lymphocyte% (test code = 43.0 % 10.0-50.0 lymphocyte%) mono % (test code = mono %) 19.9 % 3.6-12.0 H eos % (test code = eos %) 5.3 % 0.0-5.4 Basophils/100 leukocytes in 1.4 % 0.1-1.2 H Unspecified specimen (test code = 49306-3) Band form neutrophils [#/volume] 1.31 K/uL 1.56-6.13 L in Blood (test code = 99507-3) Lymphocytes [#/volume] in 1.9 K/uL 1.18-3.74 Unspecified specimen by Automated count (test code = 49793-3) mono # (test code = mono #) 0.86 K/uL 0.24-0.86 eos # (test code = eos #) 0.23 K/uL 0.04-0.36 basophil # (test code = basophil 0.06 K/uL 0.01-0.08 #) NRBC% (test code = NRBC%) 0 /100 WBC 0-0.2 NRBC# (test code = NRBC#) 0 K/uL [facility] - Serum or Plasma 2021-10-06 08:49:00 Test Item Value Reference Range Interpretation Comments Glucose [Mass/volume] in Serum or 83 mg/dL 82-115 Plasma (test code = 2345-7) Urea nitrogen [Mass/volume] in 66 mg/dL 8-23 Serum or Plasma (test code = 3094-0) osmolality calculated,serum (test 300 mOsm/kg 280-300 code = osmolality calculated,serum) creatinine (test code = 1.5 mg/dL 0.50-0.90 H creatinine) glomerular filtration rate (test 33.25 L code = glomerular filtration rate) Urea nitrogen/Creatinine [Mass 44.0 12-20 H Ratio] in Serum or Plasma (test code = 3097-3) sodium level (test code = sodium 141 mmol/L 135-145 level) potassium level (test code = 4.2 mmol/L 3.5-5.2 potassium level) chloride level (test code = 106 mmol/L 98-108 chloride level) CO2 (test code = CO2) 23 mmol/L 21-32 anion gap (test code = anion gap) 16.2 mEq/L 12-20 calcium level (test code = 9.6 mg/dL 8.8-10.2 calcium level) total protein (test code = total 6.8 g/dL 6.6-8.7 protein) albumin (test code = albumin) 3.8 g/dL 3.5-5.2 globulin (test code = globulin) 3.0 gm/dL A/G ratio (test code = A/G ratio) 1.3 >1.0 bilirubin,total (test code = 0.4 mg/dL 0.0-1.2 bilirubin,total) AST/SGOT (test code = AST/SGOT) 20 U/L 15-32 Alanine aminotransferase 16 U/L 0-33 [Enzymatic activity/volume] in Serum or Plasma (test code = 1742-6) Alkaline phosphatase [Enzymatic 86 U/L 35-105 activity/volume] in Serum or Plasma (test code = 6768-6) [facility], method unspecified - [id number] 00:00:00NeutrophilsBandLymphocyteAtypical LymphMonocyteEosinophilBasophilAbs Neutrophil Count (Man)Abs LymphCount (Man)Abs Monocyte Count (Man)Abs Eosinophil Count (Man)Abs Basophil Count (Man)Platelet EstimateMississippi State Hospital PT/[id number] 00:00:00 Test Item Value Reference Range Interpretation Comments prothrombin time (test code = 11.7 seconds 10.3-12.3 prothrombin time) INR in Blood by Coagulation 1.08 assay (test code = 13588-5) [facility] Hospitalpartial thromboplastin [id number] 00:00:00 Test Item Value Reference Range Interpretation Comments INR in Blood by Coagulation 30.4 seconds 22.5-37.0 assay (test code = 27730-1) [facility] HospitalCreatine kinase [Enzymatic activity/volume] in Serum or [id number] 00:00:00 Test Item Value Reference Range Interpretation Comments creatine kinase (test code = creatine 46 U/L 20-180 kinase) [facility] Hospitalltrop [id number] 00:00:00 Test Item Value Reference Range Interpretation Comments Troponin T.cardiac [Mass/volume] in <0.01 0-0.011 Blood (test code = 38022-6) [facility] W Auto Differential panel - [id number] 03:05:00 Test Item Value Reference Range Interpretation Comments white blood count (test code = 7.2 K/uL 4.0-11.5 white blood count) red blood count (test code = red 3.10 M/uL 3.80-5.20 L blood count) hemoglobin (test code = 10.5 g/dL 10.5-15.7 hemoglobin) hematocrit (test code = 32.9 % 34.0-50.0 L hematocrit) MCV [Entitic volume] (test code = 106.1 fL 86-100 H 55412-8) mean corpuscular hemoglobin (test 33.9 pg 26.2-33.4 H code = mean corpuscular hemoglobin) mean corpuscular HGB conc (test 31.9 g/dL 30-34 code = mean corpuscular HGB conc) red cell distribution width (test 14.1 % 12.0-15.5 code = red cell distribution width) platelet count (test code = 279 K/uL 165-450 platelet count) mean platelet volume (test code = 9.3 fL 9.4-12.6 L mean platelet volume) Segmented neutrophils/100 51.4 % 44.4-80.1 leukocytes in Blood (test code = 97190-5) Immature granulocytes [#/volume] 0.1 K/uL 0.0-0.03 H in Blood (test code = 17661-7) lymphocyte% (test code = 29.7 % 10.0-50.0 lymphocyte%) mono % (test code = mono %) 12.5 % 3.6-12.0 H eos % (test code = eos %) 5.0 % 0.0-5.4 Basophils/100 leukocytes in 0.7 % 0.1-1.2 Unspecified specimen (test code = 93327-0) Band form neutrophils [#/volume] 3.69 K/uL 1.56-6.13 in Blood (test code = 12265-1) Lymphocytes [#/volume] in 2.1 K/uL 1.18-3.74 Unspecified specimen by Automated count (test code = 91310-4) mono # (test code = mono #) 0.90 K/uL 0.24-0.86 H eos # (test code = eos #) 0.36 K/uL 0.04-0.36 basophil # (test code = basophil 0.05 K/uL 0.01-0.08 #) NRBC% (test code = NRBC%) 0 /100 WBC 0-0.2 NRBC# (test code = NRBC#) 0 K/uL [facility] HospitalUrinalysis complete panel - [id number] 03:05:00 Test Item Value Reference Range Interpretation Comments Color of Urine by Auto (test light yellow code = 52896-9) Appearance of Urine (test code clear clear = 5767-9) Glucose [Presence] in Urine by negative negative Automated test strip (test code = 99237-4) Bilirubin.total [Mass/volume] negative negative in Urine (test code = 1978-6) Ketones [Mass/volume] in Urine negative negative by Automated test strip (test code = 01373-9) Specific gravity of Urine by 1.014 1.003-1.030 Automated test strip (test code = 34592-5) blood urine (test code = blood =3 negative H urine) pH of Urine (test code = 5.500 5-9 4036-5) protein urine (UA) (test code = trace negative protein urine (UA)) Urobilinogen [Presence] in normal 0.2-1.0 Urine (test code = 92265-4) Nitrite [Presence] in Urine by negative negative Test strip (test code = 5802-4) Leukocyte esterase [Presence] =3 negative H in Urine by Automated test strip (test code = 10652-2) Erythrocytes [#/volume] in =30-49 0-5 H Urine by Automated count (test code = 798-9) Leukocytes [#/area] in Urine =15-19 0-5 H sediment by Automated count (test code = 02045-0) Epithelial cells [Presence] in =1-5 0-5 Urine sediment by Light microscopy (test code = 13603-2) Bacteria identified in Urine by none detected none detect Culture (test code = 630-4) Casts [#/area] in Urine =2-5 none detect sediment by Automated count (test code = 26535-8) urine culture added? (test code yes = urine culture added?) [facility] - [facility] or [...] Serum or Plasma (test code = 6768-6) [facility]Different[facility] panel, method unspecified - [id number] 00:00:00NeutrophilsBandLymphocyteAtypical LymphMonocyteEosinophilBasophilMetamyelocyteDifferential CommentAbs Neutrophil Count (Man)Abs Lymph Count (Man)Abs Monocyte Count (Man)Abs Eosinophil Count (Man)Abs Basophil Count (Man)Platelet EstimatePlatelet MorphologyHypochromasiaAnisocytosisMicrocytosisMacrocytosisToxic GranulationHypersegmented PolysMatagochoctaw regional medical center Medical GroupLactate [Mass/volume] in Serum or [id number] 00:00:00 Test Item Value Reference Range Interpretation Comments lactic acid (test code = lactic 0.69 mmol/L 0.5-2.2 acid) [facility] HospitalAmylase [Enzymatic activity/volume] in Serum or Plasma 2021-07-23 00:00:00 Test Item Value Reference Range Interpretation Comments Amylase [Enzymatic activity/volume] in 67 U/L 28-100 Serum or Plasma (test code = 1798-8) [facility] HospitalLipase [Enzymatic activity/volume] in Serum or Plasma 2021-07-23 00:00:00 Test Item Value Reference Range Interpretation Comments lipase (test code = lipase) 36 U/L 13-60 [facility] HospitalCreatine kinase.MB [Mass/volume] in Serum or Plasma 2021-07-23 00:00:00 Test Item Value Reference Range Interpretation Comments Creatine kinase.MB [Mass/volume] in 1.4 NG/mL 0.0-3.6 Serum or Plasma by Immunoassay (test code = 00848-6) [facility] HospitalCreatine kinase [Enzymatic activity/volume] in Serum or [id number] 00:00:00 Test Item Value Reference Range Interpretation Comments creatine kinase (test code = creatine 26 U/L 20-180 kinase) [facility]alltrop [id number] 00:00:00 Test Item Value Reference Range Interpretation Comments Troponin T.cardiac [Mass/volume] in <0.01 0-0.011 Blood (test code = 84914-3) [facility] HospitalUrinalysis complete panel - [id number] 03:57:00 Test Item Value Reference Range Interpretation Comments Color of Urine by Auto (test colorless code = 47811-9) Appearance of Urine (test code clear clear = 5767-9) Glucose [Presence] in Urine by negative negative Automated test strip (test code = 24679-3) Bilirubin.total [Mass/volume] negative negative in Urine (test code = 1978-6) Ketones [Mass/volume] in Urine negative negative by Automated test strip (test code = 15230-0) Specific gravity of Urine by 1.007 1.003-1.030 Automated test strip (test code = 05947-5) blood urine (test code = blood =3 negative H urine) pH of Urine (test code = 6.000 5-9 2756-5) protein urine (UA) (test code = negative negative protein urine (UA)) Urobilinogen [Presence] in normal 0.2-1.0 Urine (test code = 96794-5) Nitrite [Presence] in Urine by negative negative Test strip (test code = 5802-4) Leukocyte esterase [Presence] negative negative in Urine by Automated test strip (test code = 18477-0) Erythrocytes [#/volume] in >50 0-5 H Urine by Automated count (test code = 798-9) Leukocytes [#/area] in Urine <1 0-5 sediment by Automated count (test code = 25522-0) Epithelial cells [Presence] in <1 0-5 Urine sediment by Light microscopy (test code = 04288-9) Bacteria identified in Urine by none detected none detect Culture (test code = 630-4) Casts [#/area] in Urine none detected none detect sediment by Automated count (test code = 07409-6) urine culture added? (test code no = urine culture added?) [facility] W Auto Differential panel - [id number] 04:00:00 Test Item Value Reference Range Interpretation Comments white blood count (test code = 5.6 K/uL 4.0-11.5 white blood count) red blood count (test code = red 3.46 M/uL 3.80-5.20 L blood count) hemoglobin (test code = 11.5 g/dL 10.5-15.7 hemoglobin) hematocrit (test code = 36.9 % 34.0-50.0 hematocrit) MCV [Entitic volume] (test code = 106.6 fL 86-100 H 44293-8) mean corpuscular hemoglobin (test 33.2 pg 26.2-33.4 [...] 44.4-80.1 leukocytes in Blood (test code = 53616-6) Immature granulocytes [#/volume] 0.0 K/uL 0.0-0.03 in Blood (test code = 57362-3) lymphocyte% (test code = 25.8 % 10.0-50.0 lymphocyte%) mono % (test code = mono %) 14.1 % 3.6-12.0 H eos % (test code = eos %) 0.2 % 0.0-5.4 Basophils/100 leukocytes in 0.4 % 0.1-1.2 Unspecified specimen (test code = 97703-3) Band form neutrophils [#/volume] 3.33 K/uL 1.56-6.13 in Blood (test code = 88347-8) Lymphocytes [#/volume] in 1.5 K/uL 1.18-3.74 Unspecified specimen by Automated count (test code = 44532-8) mono # (test code = mono #) 0.79 K/uL 0.24-0.86 eos # (test code = eos #) 0.01 K/uL 0.04-0.36 L basophil # (test code = basophil 0.02 K/uL 0.01-0.08 #) NRBC% (test code = NRBC%) 0 /100 WBC 0-0.2 NRBC# (test code = NRBC#) 0 K/uL [facility] HospitalBasaint [facility] 2000 panel - Serum or [id number] 04:00:00 Test Item Value Reference Range Interpretation [...] code = 9.5 mg/dL 8.8-10.2 calcium level) [facility] HospitalUrinalysis complete panel - [id number] 03:13:00 Test Item Value Reference Range Interpretation Comments Color of Urine by Auto (test light yellow code = 81871-7) Appearance of Urine (test code = SL cloudy clear A 5767-9) Glucose [Presence] in Urine by negative negative Automated test strip (test code = 44752-3) Bilirubin.total [Mass/volume] in negative negative Urine (test code = 1978) Ketones [Mass/volume] in Urine negative negative by Automated test strip (test code = 59794-7) Specific gravity of Urine by 1.008 1.003-1.030 Automated test strip (test code = 91466-7) blood urine (test code = blood =3 negative H urine) pH of Urine (test code = 2756-5) 5.000 5-9 protein urine (UA) (test code = negative negative protein urine (UA)) Urobilinogen [Presence] in Urine normal 0.2-1.0 (test code = 87766-5) Nitrite [Presence] in Urine by positive negative H Test strip (test code = 5802-4) Leukocyte esterase [Presence] in =4 negative H Urine by Automated test strip (test code = 98382-7) Erythrocytes [#/volume] in Urine =6-10 0-5 H by Automated count (test code = 798-9) Leukocytes [#/area] in Urine >50 0-5 H sediment by Automated count (test code = 52709-7) Epithelial cells [Presence] in <1 0-5 Urine sediment by Light microscopy (test code = 80375-8) Bacteria identified in Urine by small(1 none detect Culture (test code = 630-4) Casts [#/area] in Urine sediment =20-29 none detect H by Automated count (test code = 24628-0) urine culture added? (test code yes = urine culture added?) [facility]Differential panel, method unspecified - [id number] 00:00:00NeutrophilsBandLymphocyteAtypical LymphMonocyteEosinophilBasophilMyelocyteBlastsNucleated Red Blood C ellDifferential CommentAbs Neutrophil Count (Man)Abs Lymph Count (Man)Abs Monocyte Count (Man)Abs Eosinophil Count (Man)Abs Basophil Count (Man)Platelet EstimatePlatelet MorphologyHypochromasiaPoikilocy tosisAnisocytosisMicrocytosisTarget CellsStomatocyteToxic GranulationBurr CellsRouleauFranklin County Memorial Hospital W Auto Differential panel - Blood 2021-07-15 [...] (test code = 104.4 fL 86-100 H 80834-0) mean corpuscular hemoglobin (test 33.6 pg 26.2-33.4 [...] 44.4-80.1 leukocytes in Blood (test code = 17241-5) Immature granulocytes [#/volume] 0.0 K/uL 0.0-0.03 in Blood (test code = 86959-7) lymphocyte% (test code = 16.5 % 10.0-50.0 lymphocyte%) mono % (test code = mono %) 2.0 % 3.6-12.0 L eos % (test code = eos %) 0 % 0.0-5.4 Basophils/100 leukocytes in 0.7 % 0.1-1.2 Unspecified specimen (test code = 79760-4) Band form neutrophils [#/volume] 3.56 K/uL 1.56-6.13 in Blood (test code = 22657-9) Lymphocytes [#/volume] in 0.7 K/uL 1.18-3.74 L Unspecified specimen by Automated count (test code = 89826-9) mono # (test code = mono #) 0.09 K/uL 0.24-0.86 L eos # (test code = eos #) 0.00 K/uL 0.04-0.36 L basophil # (test code = basophil 0.03 K/uL 0.01-0.08 #) NRBC% (test code = NRBC%) 0 /100 WBC 0-0.2 NRBC# (test code = NRBC#) 0 K/uL [facility]Basic [facility] 2000 panel - Serum or [id number] 04:41:00 Test Item Value Reference Range Interpretation [...] code = 9.5 mg/dL 8.8-10.2 calcium level) [facility]Differential panel, method unspecified - [id number] 00:00:00NeutrophilsBandLymphocyteAtypical LymphMonocyteEosinophilBasophilMyelocyteNucleated Red Blood CellAbs Neutrophil Count (Man)Abs Lymph Count (Man)Abs Monocyte Count (Man)Abs Eosinophil Count (Man)Abs Basophil Count (Man)Platelet EstimatePlatelet MorphologyHypochromasiaPoikilocytosisAnisocytosisMicrocytosisTarget CellsStomatocyteToxic GranulationMatagoAllegiance Specialty Hospital of GreenvilleARS-CoV-2 (COVID-19) RNA [Presence] in Respiratory specimen by [place] with probe [id number] 12:42:9803592-8Xgvtcjwio Medical GroupCB W Auto Differential panel - Blood 2021-07-14 [...] (test code = 106.9 fL 86-100 H 29317-2) mean corpuscular hemoglobin (test 33.4 pg 26.2-33.4 [...] 44.4-80.1 leukocytes in Blood (test code = 88858-8) Immature granulocytes [#/volume] 0.0 K/uL 0.0-0.03 in Blood (test code = 55600-3) lymphocyte% (test code = 25.6 % 10.0-50.0 lymphocyte%) mono % (test code = mono %) 15.1 % 3.6-12.0 H eos % (test code = eos %) 3.0 % 0.0-5.4 Basophils/100 leukocytes in 0.7 % 0.1-1.2 Unspecified specimen (test code = 89677-8) Band form neutrophils [#/volume] 3.74 K/uL 1.56-6.13 in Blood (test code = 23627-9) Lymphocytes [#/volume] in 1.7 K/uL 1.18-3.74 Unspecified specimen by Automated count (test code = 44946-9) mono # (test code = mono #) 1.02 K/uL 0.24-0.86 H eos # (test code = eos #) 0.20 K/uL 0.04-0.36 basophil # (test code = basophil 0.05 K/uL 0.01-0.08 #) NRBC% (test code = NRBC%) 0 /100 WBC 0-0.2 NRBC# (test code = NRBC#) 0 K/uL [facility] HospitalComprehensive [facility] 2000 panel - Serum or [...] Serum or Plasma (test code = 6768-6) [facility] HospitalUrinalysis complete panel - [id number] 10:10:00 Test Item Value Reference Range Interpretation Comments Color of Urine by Auto (test light yellow code = 05227-0) Appearance of Urine (test code = SL cloudy clear A 5767-9) Glucose [Presence] in Urine by negative negative Automated test strip (test code = 96104-8) Bilirubin.total [Mass/volume] in negative negative Urine (test code = 1978-6) Ketones [Mass/volume] in Urine negative negative by Automated test strip (test code = 99974-7) Specific gravity of Urine by 1.011 1.003-1.030 Automated test strip (test code = 60973-5) blood urine (test code = blood =1 negative H urine) pH of Urine (test code = 2756-5) 6.000 5-9 protein urine (UA) (test code = negative negative protein urine (UA)) Urobilinogen [Presence] in Urine normal 0.2-1.0 (test code = 08822-1) Nitrite [Presence] in Urine by negative negative Test strip (test code = 5802-4) Leukocyte esterase [Presence] in =4 negative H Urine by Automated test strip (test code = 69880-3) Erythrocytes [#/volume] in Urine =6-10 0-5 H by Automated count (test code = 798-9) Leukocytes [#/area] in Urine >50 0-5 H sediment by Automated count (test code = 30777-3) Epithelial cells [Presence] in <1 0-5 Urine sediment by Light microscopy (test code = 30699-1) Bacteria identified in Urine by trace none detect Culture (test code = 630-4) Casts [#/area] in Urine sediment =11-14 none detect H by Automated count (test code = 24500-4) urine culture added? (test code yes = urine culture added?) transitional epi cells, urine =0-5 0-5 (test code = transitional epi cells, urine) [facility] HospitalBacteria identified in Urine by [id number] 10:10:00Bacteria Ur CultMississippi State Hospitalantibiotic sensitivity testing, [id number] 10:10:00 Test Item Value Reference Range Interpretation [...] Minimum inhibitory concentration (YUNG) (test code = 83854-7) cefTAZidime [Susceptibility] by >16 Minimum inhibitory concentration (YUNG) (test code = 133-9) cefTRIAXone [Susceptibility] by >32 Minimum inhibitory concentration (YUNG) (test code = 141-2) Ciprofloxacin [Susceptibility] by <=0.25 Minimum inhibitory concentration (YUNG) (test code = 185-9) Ampicillin+Sulbactam =16/8 [Susceptibility] by Minimum inhibitory concentration (YUNG) (test code = 32-3) Ertapenem [Susceptibility] by 1 ug/mL Minimum inhibitory concentration (YUNG) (test code = 82568-6) Aztreonam [Susceptibility] by >16 Minimum inhibitory concentration (YUNG) (test code = 44-8) Cefepime [Susceptibility] by Minimum 4 ug/mL inhibitory concentration (YUNG) (test code = 6644-9) Meropenem [Susceptibility] by <=0.5 Minimum inhibitory concentration (YUNG) (test code = 6652-2) Moxifloxacin [Susceptibility] by <=1 Minimum inhibitory concentration (YUNG) (test code = 45185-8) Amikacin [Susceptibility] by Minimum <=8 inhibitory concentration (YUNG) (test code = 12-5) Piperacillin+Tazobactam =64/4 [Susceptibility] by Minimum inhibitory concentration (YUNG) (test code = 412-7) Ceftaroline [Susceptibility] by >1 Minimum inhibitory concentration (YUNG) (test code = 27254-7) Tigecycline [Susceptibility] by <=1 Minimum inhibitory concentration (YUNG) (test code = 94669-3) [facility] HospitalErythrocyte sedimentation [id number] 07:05:00 Test Item Value Reference Range Interpretation Comments erythrocyte sedimentation rate (test 41 mm/HR 0.00-20 H code = erythrocyte sedimentation rate) [facility] HospitalThyrotropin [Units/volume] in Serum or [id number] 04:14:00 Test Item Value Reference Range Interpretation Comments Thyrotropin [Units/volume] in 0.02 uIU/mL 0.36-3.74 L Serum or Plasma (test code = 3016-3) [facility] HospitalDifferential panel, method unspecified - [id number] 00:00:00NeutrophilsBandLymphocyteAtypical LymphMonocyteEosinophilBasophilMyelocyteNucleated Red Blood CellAbs Neutrophil Count (Man)Abs Lymph Count (Man)Abs Monocyte Count (Man)Abs Eosinophil Count (Man)Abs Basophil Count (Man)Platelet EstimatePlatelet MorphologyPoikilocytosisAnisocytosisMataCrossRoads Behavioral HealthPT/[id number] 00:00:00 Test Item Value Reference Range Interpretation Comments prothrombin time (test code = 11.9 seconds 10.3-12.3 prothrombin time) INR in Blood by Coagulation 1.12 assay (test code = 51761-1) [facility] Hospitalpartial thromboplastin [id number] 00:00:00 Test Item Value Reference Range Interpretation Comments INR in Blood by Coagulation 31.2 seconds 22.5-37.0 assay (test code = 66057-8) [facility] HospitalCreatine kinase [Enzymatic activity/volume] in Serum or [id number] 00:00:00 Test Item Value Reference Range Interpretation Comments creatine kinase (test code = creatine 76 U/L 20-180 kinase) [facility] HospitalCreatine kinase.MB [Mass/volume] in Serum or Plasma 2021-07-14 00:00:00 Test Item Value Reference Range Interpretation Comments Creatine kinase.MB [Mass/volume] in 2.4 NG/mL 0.0-3.6 Serum or Plasma by Immunoassay (test code = 75496-2) [facility] [id number] 00:00:00 Test Item Value Reference Range Interpretation Comments Troponin T.cardiac [Mass/volume] in <0.01 0-0.011 Blood (test code = 77254-7) [facility] Hospitallprocal2021-09-03 00:00:00 Test Item Value Reference Range Interpretation Comments Procalcitonin [Mass/volume] in 0.1 NG/mL 0.0-0.8 Serum or Plasma (test code = 04045-6) [facility] [id number] 00:00:00 Test Item Value Reference Range Interpretation Comments Troponin T.cardiac [Mass/volume] in <0.01 0-0.011 Blood (test code = 47822-0) [facility] URINALYSIS, [id number] 15:34:00 Test Item Value Reference Range Interpretation [...] 3267) Lab Interpretation (test Abnormal code = 98140-1) [facility] [id number] 15:34:00 Test Item Value Reference Range Interpretation [...] 3267) Lab Interpretation (test Abnormal code = 84362-0) [facility], [id number] 15:34:00 Test Item Value Reference Range Interpretation [...] (test code = Trace-lysed Negative - Negative 325) POCT U COLOR (test code = Light yellow 3266) POCT U APPEAR (test code = cloudy 3267) Lab Interpretation (test Abnormal code = 58102-6) [facility] W Auto Differential panel - Blood 2021-07-11 [...] (test code = 105.3 fL 86-100 H 88533-3) mean corpuscular hemoglobin (test 33.7 pg 26.2-33.4 [...] 44.4-80.1 leukocytes in Blood (test code = 19691-2) Immature granulocytes [#/volume] 0.0 K/uL 0.0-0.03 in Blood (test code = 05252-3) lymphocyte% (test code = 29.2 % 10.0-50.0 lymphocyte%) mono % (test code = mono %) 12.6 % 3.6-12.0 H eos % (test code = eos %) 5.0 % 0.0-5.4 Basophils/100 leukocytes in 0.8 % 0.1-1.2 Unspecified specimen (test code = 37391-4) Band form neutrophils [#/volume] 3.10 K/uL 1.56-6.13 in Blood (test code = 62616-1) Lymphocytes [#/volume] in 1.7 K/uL 1.18-3.74 Unspecified specimen by Automated count (test code = 76440-3) mono # (test code = mono #) 0.75 K/uL 0.24-0.86 eos # (test code = eos #) 0.30 K/uL 0.04-0.36 basophil # (test code = basophil 0.05 K/uL 0.01-0.08 #) NRBC% (test code = NRBC%) 0 /100 WBC 0-0.2 NRBC# (test code = NRBC#) 0 K/uL [facility]Comprehensive [facility] 2000 panel - Serum or [...] Serum or Plasma (test code = 6768-6) [facility] HospitalDifferential panel, method unspecified - [id number] 00:00:00NeutrophilsBandLymphocyteAtypical LymphMonocyteEosinophilBasophilMetamyelocyteMyelocytePromyelocyteBlastsNucleated Red Blood CellPlasma CellDifferential CommentAbs Neutrophil Count (Man)Abs Lymph Count(Man)Abs Monocyte Count (Man)Abs Eosinophil Count (Man)Abs Basophil Count (Man)Platelet EstimatePlatelet MorphologyPolychromasiaHypochromasiaPoikilocytosisBasophilic StipplingAnisocytosisMicrocytosisMacrocytosisTarget CellsTear Drop CellsOvalocytesToxic GranulationHypersegmented PolysToxic VacuolationSmudge CellsMississippi State HospitalLipase [Enzymatic activity/volume] in Serum or [id number] 00:00:00 Test Item Value Reference Range Interpretation Comments lipase (test code = lipase) 34 U/L 13-60 [facility] HospitalUrinalysis complete panel - [id number] 00:00:00 Test Item Value Reference Range Interpretation Comments Color of Urine by Auto (test light yellow code = 09933-7) Appearance of Urine (test code clear clear = 5767-9) Glucose [Presence] in Urine by negative negative Automated test strip (test code = 06507-1) Bilirubin.total [Mass/volume] negative negative in Urine (test code = 1978-6) Ketones [Mass/volume] in Urine negative negative by Automated test strip (test code = 32541-0) Specific gravity of Urine by 1.008 1.003-1.030 Automated test strip (test code = 32271-9) blood urine (test code = blood negative negative urine) pH of Urine (test code = 5.000 5-9 2756-5) protein urine (UA) (test code = negative negative protein urine (UA)) Urobilinogen [Presence] in normal 0.2-1.0 Urine (test code = 11977-7) Nitrite [Presence] in Urine by negative negative Test strip (test code = 5802-4) Leukocyte esterase [Presence] negative negative in Urine by Automated test strip (test code = 12639-3) Erythrocytes [#/volume] in =1-5 0-5 Urine by Automated count (test code = 798-9) Leukocytes [#/area] in Urine <1 0-5 sediment by Automated count (test code = 50297-6) Epithelial cells [Presence] in <1 0-5 Urine sediment by Light microscopy (test code = 05809-7) Bacteria identified in Urine by none detected none detect Culture (test code = 630-4) Casts [#/area] in Urine =2-5 none detect sediment by Automated count (test code = 21773-4) urine culture added? (test code no = urine culture added?) [facility] GroupUrinalysis complete panel - [id number] 11:35:00 Test Item Value Reference Range Interpretation Comments Color of Urine by Auto (test light yellow code = 16640-7) Appearance of Urine (test code clear clear = 5767-9) Glucose [Presence] in Urine by negative negative Automated test strip (test code = 17368-5) Bilirubin.total [Mass/volume] negative negative in Urine (test code = 1978-6) Ketones [Mass/volume] in Urine negative negative by Automated test strip (test code = 48962-1) Specific gravity of Urine by 1.014 1.003-1.030 Automated test strip (test code = 10157-8) blood urine (test code = blood negative negative urine) pH of Urine (test code = 5.500 5-9 2756-5) protein urine (UA) (test code = trace negative protein urine (UA)) Urobilinogen [Presence] in normal 0.2-1.0 Urine (test code = 23533-4) Nitrite [Presence] in Urine by negative negative Test strip (test code = 5802-4) Leukocyte esterase [Presence] =3 negative H in Urine by Automated test strip (test code = 84961-7) Erythrocytes [#/volume] in <1 0-5 Urine by Automated count (test code = 798-9) Leukocytes [#/area] in Urine =30-49 0-5 H sediment by Automated count (test code = 19064-1) Epithelial cells [Presence] in =1-5 0-5 Urine sediment by Light microscopy (test code = 59276-4) Bacteria identified in Urine by none detected none detect Culture (test code = 630-4) Casts [#/area] in Urine =6-10 none detect H sediment by Automated count (test code = 19120-5) urine culture added? (test code yes = urine culture added?) [facility] HospitalBacteria identified in Urine by [id number] 11:35:00 Test Item Value Reference Range Interpretation Comments Bacteria identified in no growth after 2 Urine by Culture (test days code = 630-4) [facility] HospitalCB W Auto Differential panel - [id number] 08:50:00 Test Item Value Reference Range Interpretation Comments white blood count (test code = 7.1 K/uL 4.0-11.5 white blood count) red blood count (test code = red 3.53 M/uL 3.80-5.20 L blood count) hemoglobin (test code = 11.9 g/dL 10.5-15.7 hemoglobin) hematocrit (test code = 36.9 % 34.0-50.0 hematocrit) MCV [Entitic volume] (test code = 104.5 fL 86-100 H 53020-8) mean corpuscular hemoglobin (test 33.7 pg 26.2-33.4 [...] 44.4-80.1 leukocytes in Blood (test code = 65428-4) Immature granulocytes [#/volume] 0.0 K/uL 0.0-0.03 in Blood (test code = 16246-8) lymphocyte% (test code = 28.9 % 10.0-50.0 lymphocyte%) mono % (test code = mono %) 11.0 % 3.6-12.0 eos % (test code = eos %) 3.5 % 0.0-5.4 Basophils/100 leukocytes in 0.8 % 0.1-1.2 Unspecified specimen (test code = 59848-6) Band form neutrophils [#/volume] 3.94 K/uL 1.56-6.13 in Blood (test code = 78439-7) Lymphocytes [#/volume] in 2.1 K/uL 1.18-3.74 Unspecified specimen by Automated count (test code = 43734-6) mono # (test code = mono #) 0.78 K/uL 0.24-0.86 eos # (test code = eos #) 0.25 K/uL 0.04-0.36 basophil # (test code = basophil 0.06 K/uL 0.01-0.08 #) NRBC% (test code = NRBC%) 0 /100 WBC 0-0.2 NRBC# (test code = NRBC#) 0 K/uL [facility] HospitalCom[facility] 2000 panel - Serum or [...] Serum or Plasma (test code = 6768-6) [facility] HospitalDifferential panel, method unspecified - [id number] 00:00:00NeutrophilsBandLymphocyteAtypical LymphMonocyteEosinophilBasophilMetamyelocyteMyelocytePromyelocyteNucleated Red Blood CellDifferential CommentAbs Neutrophil Count (Man)Abs Lymph Count (Man)Abs Monocyte Count (Man)Abs Eosinophil Count (Man)Abs Basophil Count (Man)Platelet EstimatePlatelet MorphologyPolychromasiaHypochromasiaPoikilocytosisBasophilic StipplingAnisocytosisMicrocytosisMacrocytosisTarget CellsTear Drop CellsOvalocytesToxic GranulationHypersegmented PolysToxic VacuolationSmudge CellsMississippi State HospitalCreatine kinase [Enzymatic activity/volume] in Serum or [id number] 00:00:00 Test Item Value Reference Range Interpretation Comments creatine kinase (test code = creatine 69 U/L 20-180 kinase) [facility] Hospitalltrop [id number] 00:00:00 Test Item Value Reference Range Interpretation Comments Troponin T.cardiac [Mass/volume] in <0.01 0-0.011 Blood (test code = 45645-7) [facility] HospitalUrinalysis macro (dipstick) panel - [id number] 14:08:24 Test Item Value Reference Range Interpretation Comments Leukocytes (test code = Large Leukocytes) Nitrite (test code = Nitrite) positive Urobilinogen (test code = .2 Urobilinogen) Protein (test code = Protein) Negative pH (test code = pH) 5.5 Blood (test code = Blood) Large Specific Diagonal (test code = 1.015 Specific Diagonal) Ketone (test code = Ketone) Negative Bilirubin (test code = Negative Bilirubin) Glucose (test code = Glucose) Negative Appearance (test code = Slightly Cloudy Appearance) Color (test code = Color) Yellow [facility] GroupUrinalysis complete W Reflex Culture panel - Urine 2021-06-08 07:24:00 Test Item Value Reference Range Interpretation Comments Color of Urine by Auto (test code = orange A 05279-4) Appearance of Urine (test code = cloudy clear A 5767-9) Glucose [Presence] in Urine by negative negative Automated test strip (test code = 54556-7) Bilirubin.total [Mass/volume] in negative negative Urine (test code = 1977-6) Ketones [Mass/volume] in Urine by negative negative Automated test strip (test code = 18697-4) Specific gravity of Urine by 1.018 1.003-1.030 Automated test strip (test code = 22897-7) blood urine (test code = blood =3 negative H urine) pH of Urine (test code = 2756-5) 5.500 5-9 protein urine (UA) (test code = =2+ (100 negative H protein urine (UA)) Urobilinogen [Presence] in Urine normal 0.2-1.0 (test code = 62837-7) Nitrite [Presence] in Urine by Test negative negative strip (test code = 5802-4) Leukocyte esterase [Presence] in =4 negative H Urine by Automated test strip (test code = 49594-1) Erythrocytes [#/volume] in Urine by >50 0-5 H Automated count (test code = 798-9) Leukocytes [#/area] in Urine >50 0-5 H sediment by Automated count (test code = 09765-9) Epithelial cells [Presence] in <1 0-5 Urine sediment by Light microscopy (test code = 29557-1) Bacteria identified in Urine by large (3 none detect H Culture (test code = 630-4) Casts [#/area] in Urine sediment by =6-10 none detect H Automated count (test code = 19734-9) urine culture added? (test code = yes urine culture added?) Mucus [Presence] in Urine by none seen none detect Automated (test code = 36455-3) [facility] HospitalBacteria identified in Urine by [id number] 07:24:00[facility] Centerantib[facility] testing, [id number] 07:24:00 Test Item Value Reference Range Interpretation [...] levoFLOXacin [Susceptibility] by >4 Minimum inhibitory concentration (YUGN) (test code = 56905-0) Piperacillin+Tazobactam <16 [Susceptibility] by Minimum inhibitory concentration [...] <0.5 inhibitory concentration (YUNG) (test code = 08417-7) Aztreonam [Susceptibility] by Minimum <4 inhibitory concentration (YUNG) (test code = 44-8) Cefuroxime [Susceptibility] by Minimum <4 inhibitory concentration (YUNG) (test code = 44004-7) [facility] HospitalUrinalysis complete W Reflex Culture panel - Urine 2021-05-23 10:42:00 Test Item Value Reference Range Interpretation Comments Color of Urine by Auto dk. brown (test code = 43237-8) Appearance of Urine (test turbid clear code = 5767-9) Glucose [Mass/volume] in negative negative Urine (test code = 2350-7) bilirubin, urine (test small negative H code = bilirubin, urine) ketone, urine (test code small, 15 negative H = ketone, urine) Specific gravity of Urine 1.025 1.003-1.030 by Automated test strip (test code = 25120-9) Hemoglobin [Presence] in large negative H Urine by Test strip (test code = 5794-3) pH of Urine (test code = 5.500 5-9 2756-5) protein urine (UA) (test =2+ (100 negative H code = protein urine (UA)) Urobilinogen [Presence] 0.2 E.U./dL 0.2-1.0 in Urine (test code = 25646-1) Nitrite [Presence] in negative negative Urine by Test strip (test code = 5802-4) urine leukocyte esterase moderate negative H (test code = urine leukocyte esterase) Erythrocytes [Presence] too numerous to cnt 0-5 H in Urine (test code = 35836-3) WBC, urine (test code = >50 0-5 H WBC, urine) Epithelial cells occassional 0-5 [Presence] in Urine sediment by Light microscopy (test code = 36349-4) bacteria, urine (test large (3 none detect H code = bacteria, urine) Casts [#/area] in Urine none seen none detect sediment by Automated count (test code = 92446-6) urine culture added? yes (test code = urine culture added?) [facility] HospitalBacteria identified in Urine by [id number] 10:42:00Bacteria Ur CultMississippi State Hospitalantibiotic sensitivity testing, [id number] 10:42:00 Test Item Value Reference Range Interpretation Comments Gentamicin [Susceptibility] by Minimum <2 inhibitory concentration (YUNG) (test code = 267-5) Ampicillin [Susceptibility] by Minimum >16 inhibitory concentration (YUGN) (test code = 28-1) ceFAZolin [Susceptibility] by [...] Minimum inhibitory concentration (YUNG) (test code = 95940-3) Piperacillin+Tazobactam <16 [Susceptibility] by Minimum inhibitory concentration [...] Ertapenem [Susceptibility] by Minimum <0.5 inhibitory concentration (UYNG) (test code = 70156-4) Aztreonam [Susceptibility] by Minimum <4 inhibitory concentration (YUNG) (test code = 44-8) Cefuroxime [Susceptibility] by Minimum <4 inhibitory concentration (YUNG) (test code = 57416-6) [facility] GroupGENTAMICIN:SUSC:PT:ISOLATE:ORDQN:[id number] 11:08:00 Test Item Value Reference Range Interpretation Comments Culture: Urine (test >100,000 CFU/mL code = Culture: Escherichia coli 10,000 - Urine) 50,000 CFU/mL Skin Brett [facility]:SUSC:PT:ISOLATE:ORDQN:[id number] 11:08:00 Test Item Value Reference Range Interpretation Comments Escherichia coli (test code Escherichia coli = Escherichia coli) [facility]:SUSC:PT:ISOLATE:ORDQN:[id number] 11:08:00 Test Item Value Reference Range Interpretation Comments Culture: Urine (test >100,000 CFU/mL code = Culture: Escherichia coli 10,000 - Urine) 50,000 CFU/mL Skin Brett [facility]:SUSC:PT:ISOLATE:ORDQN:[id number] 11:08:00 Test Item Value Reference Range Interpretation Comments Escherichia coli (test code Escherichia coli = Escherichia coli) [facility]:SUSC:PT:ISOLATE:ORDQN:[id number] 11:08:00 Test Item Value Reference Range Interpretation Comments Culture: Urine (test >100,000 CFU/mL code = Culture: Escherichia coli 10,000 - Urine) 50,000 CFU/mL Skin Brett [facility]:SUSC:PT:ISOLATE:ORDQN:[id number] 11:08:00 Test Item Value Reference Range Interpretation Comments Escherichia coli (test code Escherichia coli = Escherichia coli) [facility]:SUSC:PT:ISOLATE:ORDQN:[id number] 11:08:00 Test Item Value Reference Range Interpretation Comments Culture: Urine (test >100,000 CFU/mL code = Culture: Escherichia coli 10,000 - Urine) 50,000 CFU/mL Skin Brett [facility]:SUSC:PT:ISOLATE:ORDQN:[id number] 11:08:00 Test Item Value Reference Range Interpretation Comments Escherichia coli (test code Escherichia coli = Escherichia coli) [facility]:SUSC:PT:ISOLATE:ORDQN:[id number] 11:08:00 Test Item Value Reference Range Interpretation Comments Culture: Urine (test >100,000 CFU/mL code = Culture: Escherichia coli 10,000 - Urine) 50,000 CFU/mL Skin Brett [facility]:SUSC:PT:ISOLATE:ORDQN:[id number] 11:08:00 Test Item Value Reference Range Interpretation Comments Escherichia coli (test code Escherichia coli = Escherichia coli) [facility]:SUSC:PT:ISOLATE:ORDQN:[id number] 11:08:00 Test Item Value Reference Range Interpretation Comments Culture: Urine (test >100,000 CFU/mL code = Culture: Escherichia coli 10,000 - Urine) 50,000 CFU/mL Skin Brett [facility]:SUSC:PT:ISOLATE:ORDQN:[id number] 11:08:00 Test Item Value Reference Range Interpretation Comments Escherichia coli (test code Escherichia coli = Escherichia coli) [facility]:SUSC:PT:ISOLATE:ORDQN:[id number] 11:08:00 Test Item Value Reference Range Interpretation Comments Culture: Urine (test >100,000 CFU/mL code = Culture: Escherichia coli 10,000 - Urine) 50,000 CFU/mL Skin Brett [facility]:SUSC:PT:ISOLATE:ORDQN:[id number] 11:08:00 Test Item Value Reference Range Interpretation Comments Escherichia coli (test code Escherichia coli = Escherichia coli) [facility]:SUSC:PT:ISOLATE:ORDQN:[id number] 11:08:00 Test Item Value Reference Range Interpretation Comments Culture: Urine (test >100,000 CFU/mL code = Culture: Escherichia coli 10,000 - Urine) 50,000 CFU/mL Skin Brett [facility]:SUSC:PT:ISOLATE:ORDQN:[id number] 11:08:00 Test Item Value Reference Range Interpretation Comments Escherichia coli (test code Escherichia coli = Escherichia coli) [facility]:SUSC:PT:ISOLATE:ORDQN:[id number] 11:08:00 Test Item Value Reference Range Interpretation Comments Culture: Urine (test >100,000 CFU/mL code = Culture: Escherichia coli 10,000 - Urine) 50,000 CFU/mL Skin Brett [facility]:SUSC:PT:ISOLATE:ORDQN:[id number] 11:08:00 Test Item Value Reference Range Interpretation Comments Escherichia coli (test code Escherichia coli = Escherichia coli) [facility]:SUSC:PT:ISOLATE:ORDQN:[id number] 11:08:00 Test Item Value Reference Range Interpretation Comments Culture: Urine (test >100,000 CFU/mL code = Culture: Escherichia coli 10,000 - Urine) 50,000 CFU/mL Skin Brett [facility]:SUSC:PT:ISOLATE:ORDQN:[id number] 11:08:00 Test Item Value Reference Range Interpretation Comments Escherichia coli (test code Escherichia coli = Escherichia coli) [facility]:SUSC:PT:ISOLATE:ORDQN:[id number] 11:08:00 Test Item Value Reference Range Interpretation Comments Culture: Urine (test >100,000 CFU/mL code = Culture: Escherichia coli 10,000 - Urine) 50,000 CFU/mL Skin Brett [facility]:SUSC:PT:ISOLATE:ORDQN:[id number] 11:08:00 Test Item Value Reference Range Interpretation Comments Escherichia coli (test code Escherichia coli = Escherichia coli) [facility]:SUSC:PT:ISOLATE:ORDQN:[id number] 11:08:00 Test Item Value Reference Range Interpretation Comments Culture: Urine (test >100,000 CFU/mL code = Culture: Escherichia coli 10,000 - Urine) 50,000 CFU/mL Skin Brett [facility]:SUSC:PT:ISOLATE:ORDQN:[id number] 11:08:00 Test Item Value Reference Range Interpretation Comments Escherichia coli (test code Escherichia coli = Escherichia coli) [facility] [id number] 10:26:00 Test Item Value Reference Range Interpretation Comments Hep A IgM (test code = Hep A NON-REACTIVE IgM) [facility] [id number] 10:26:00 Test Item Value Reference Range Interpretation Comments Hep Bs Ag (test code = Hep Bs NON-REACTIVE Ag) [facility] [id number] 10:26:00 Test Item Value Reference Range Interpretation Comments Hep B Core IgM (test code = Hep NON-REACTIVE B Core IgM) [facility] [id number] 10:26:00 Test Item Value Reference Range Interpretation Comments Hep C Ab (test code = Hep C Ab) NON-REACTIVE [place] 106781-04-21 10:26:00 Test Item Value Reference Range Interpretation Comments Hep Signal to Cut-Off (test code = Hep 0.01 1 Signal to Cut-Off) [facility] [id number] 10:26:00 Test Item Value Reference Range Interpretation Comments Hep A IgM (test code = Hep A NON-REACTIVE IgM) [facility] [id number] 10:26:00 Test Item Value Reference Range Interpretation Comments Hep Bs Ag (test code = Hep Bs NON-REACTIVE Ag) [facility] [id number] 10:26:00 Test Item Value Reference Range Interpretation Comments Hep B Core IgM (test code = Hep NON-REACTIVE B Core IgM) [facility] [id number] 10:26:00 Test Item Value Reference Range Interpretation Comments Hep C Ab (test code = Hep C Ab) NON-REACTIVE [place] 106781-04-21 10:26:00 Test Item Value Reference Range Interpretation Comments Hep Signal to Cut-Off (test code = Hep 0.01 1 Signal to Cut-Off) [facility] WestJnxkstuPYCNUPVIXA9164-15-28 10:26:00 Test Item Value Reference Range Interpretation Comments Hep A IgM (test code = Hep A NON-REACTIVE IgM) [place] 106781-04-21 10:26:00 Test Item Value Reference Range Interpretation Comments Hep Bs Ag (test code = Hep Bs NON-REACTIVE Ag) [facility] WestHqeqxcdYNSUDCUEDT0801-02-58 10:26:00 Test Item Value Reference Range Interpretation Comments Hep B Core IgM (test code = Hep NON-REACTIVE B Core IgM) [facility] [id number] 10:26:00 Test Item Value Reference Range Interpretation Comments Hep C Ab (test code = Hep C Ab) NON-REACTIVE [place] [address]-04-21 10:26:00 Test Item Value Reference Range Interpretation Comments Hep Signal to Cut-Off (test code = Hep 0.01 1 Signal to Cut-Off) [facility] [id number] 10:26:00 Test Item Value Reference Range Interpretation Comments Hep A IgM (test code = Hep A NON-REACTIVE IgM) [facility] WestHalganmZPWFRQEHPE2001-13-20 10:26:00 Test Item Value Reference Range Interpretation Comments Hep Bs Ag (test code = Hep Bs NON-REACTIVE Ag) [facility] [id number] 10:26:00 Test Item Value Reference Range Interpretation Comments Hep B Core IgM (test code = Hep NON-REACTIVE B Core IgM) [facility] [id number] 10:26:00 Test Item Value Reference Range Interpretation Comments Hep C Ab (test code = Hep C Ab) NON-REACTIVE [facility] [id number] 10:26:00 Test Item Value Reference Range Interpretation Comments Hep Signal to Cut-Off (test code = Hep 0.01 1 Signal to Cut-Off) [facility] We[id number] 10:26:00 Test Item Value Reference Range Interpretation Comments Hep A IgM (test code = Hep A NON-REACTIVE IgM) [facility] [id number] 10:26:00 Test Item Value Reference Range Interpretation Comments Hep Bs Ag (test code = Hep Bs NON-REACTIVE Ag) [facility] [id number] 10:26:00 Test Item Value Reference Range Interpretation Comments Hep B Core IgM (test code = Hep NON-REACTIVE B Core IgM) [facility] [id number] 10:26:00 Test Item Value Reference Range Interpretation Comments Hep C Ab (test code = Hep C Ab) NON-REACTIVE [facility] [id number] 10:26:00 Test Item Value Reference Range Interpretation Comments Hep Signal to Cut-Off (test code = Hep 0.01 1 Signal to Cut-Off) [facility] [id number] 10:26:00 Test Item Value Reference Range Interpretation Comments Hep A IgM (test code = Hep A NON-REACTIVE IgM) [facility] [id number] 10:26:00 Test Item Value Reference Range Interpretation Comments Hep Bs Ag (test code = Hep Bs NON-REACTIVE Ag) [facility] [id number] 10:26:00 Test Item Value Reference Range Interpretation Comments Hep B Core IgM (test code = Hep NON-REACTIVE B Core IgM) [facility] WestKqwrwwpBDXGVKULWQ8719-27-49 10:26:00 Test Item Value Reference Range Interpretation Comments Hep C Ab (test code = Hep C Ab) NON-REACTIVE [facility] We[id number] 10:26:00 Test Item Value Reference Range Interpretation Comments Hep Signal to Cut-Off (test code = Hep 0.01 1 Signal to Cut-Off) [place] 106781-04-21 10:26:00 Test Item Value Reference Range Interpretation Comments Hep A IgM (test code = Hep A NON-REACTIVE IgM) [place] 106781-04-21 10:26:00 Test Item Value Reference Range Interpretation Comments Hep Bs Ag (test code = Hep Bs NON-REACTIVE Ag) [facility] [id number] 10:26:00 Test Item Value Reference Range Interpretation Comments Hep B Core IgM (test code = Hep NON-REACTIVE B Core IgM) [place] [address]-04-21 10:26:00 Test Item Value Reference Range Interpretation Comments Hep C Ab (test code = Hep C Ab) NON-REACTIVE [place] [address]-04-21 10:26:00 Test Item Value Reference Range Interpretation Comments Hep Signal to Cut-Off (test code = Hep 0.01 1 Signal to Cut-Off) [facility] [id number] 10:26:00 Test Item Value Reference Range Interpretation Comments Hep A IgM (test code = Hep A NON-REACTIVE IgM) [place] [address]-04-21 10:26:00 Test Item Value Reference Range Interpretation Comments Hep Bs Ag (test code = Hep Bs NON-REACTIVE Ag) [facility] WestDcphufoFRXAMQWOOJ5014-71-27 10:26:00 Test Item Value Reference Range Interpretation Comments Hep B Core IgM (test code = Hep NON-REACTIVE B Core IgM) [place] 106781-04-21 10:26:00 Test Item Value Reference Range Interpretation Comments Hep C Ab (test code = Hep C Ab) NON-REACTIVE [place] [address]-04-21 10:26:00 Test Item Value Reference Range Interpretation Comments Hep Signal to Cut-Off (test code = Hep 0.01 1 Signal to Cut-Off) [place] [address]-04-21 10:26:00 Test Item Value Reference Range Interpretation Comments Hep A IgM (test code = Hep A NON-REACTIVE IgM) [place] 106781-04-21 10:26:00 Test Item Value Reference Range Interpretation Comments Hep Bs Ag (test code = Hep Bs NON-REACTIVE Ag) [facility] WestLlkrpcsZVJZTSRQFT0844-38-05 10:26:00 Test Item Value Reference Range Interpretation Comments Hep B Core IgM (test code = Hep NON-REACTIVE B Core IgM) [facility] We[id number] 10:26:00 Test Item Value Reference Range Interpretation Comments Hep C Ab (test code = Hep C Ab) NON-REACTIVE [facility] We[id number] 10:26:00 Test Item Value Reference Range Interpretation Comments Hep Signal to Cut-Off (test code = Hep 0.01 1 Signal to Cut-Off) [facility] WestWtylnlqPWSXRBOCPR2172-81-41 10:26:00 Test Item Value Reference Range Interpretation Comments Hep A IgM (test code = Hep A NON-REACTIVE IgM) [facility] [id number] 10:26:00 Test Item Value Reference Range Interpretation Comments Hep Bs Ag (test code = Hep Bs NON-REACTIVE Ag) [facility] WestImhprdfBKHVVRRRUR5898-79-72 10:26:00 Test Item Value Reference Range Interpretation Comments Hep B Core IgM (test code = Hep NON-REACTIVE B Core IgM) [facility] [id number] 10:26:00 Test Item Value Reference Range Interpretation Comments Hep C Ab (test code = Hep C Ab) NON-REACTIVE [facility] WestF[id number] 10:26:00 Test Item Value Reference Range Interpretation Comments Hep Signal to Cut-Off (test code = Hep 0.01 1 Signal to Cut-Off) [facility] WestOmbotwnNYTFGLWUZC4060-64-60 10:26:00 Test Item Value Reference Range Interpretation Comments Hep A IgM (test code = Hep A NON-REACTIVE IgM) [facility] WestWzkrvboSKPUGOGSYO5726-21-23 10:26:00 Test Item Value Reference Range Interpretation Comments Hep Bs Ag (test code = Hep Bs NON-REACTIVE Ag) [facility] WestCzztrpbTVYRIRXYSO1585-77-69 10:26:00 Test Item Value Reference Range Interpretation Comments Hep B Core IgM (test code = Hep NON-REACTIVE B Core IgM) [facility] WestJqhhjsdIYGTDHKMUM3752-16-91 10:26:00 Test Item Value Reference Range Interpretation Comments Hep C Ab (test code = Hep C Ab) NON-REACTIVE [facility] WestJpnaqsbYLVBUHOBLS6427-20-12 10:26:00 Test Item Value Reference Range Interpretation Comments Hep Signal to Cut-Off (test code = Hep 0.01 1 Signal to Cut-Off) [facility] WestCughigzNVVOYTNTXI6007-08-88 10:26:00 Test Item Value Reference Range Interpretation Comments Hep A IgM (test code = Hep A NON-REACTIVE IgM) [place] 106781-04-21 10:26:00 Test Item Value Reference Range Interpretation Comments Hep Bs Ag (test code = Hep Bs NON-REACTIVE Ag) [place] 106781-04-21 10:26:00 Test Item Value Reference Range Interpretation Comments Hep B Core IgM (test code = Hep NON-REACTIVE B Core IgM) [facility] WestOqscvukRKXMYLUJUB8286-98-21 10:26:00 Test Item Value Reference Range Interpretation Comments Hep C Ab (test code = Hep C Ab) NON-REACTIVE [place] [address]-04-21 10:26:00 Test Item Value Reference Range Interpretation Comments Hep Signal to Cut-Off (test code = Hep 0.01 1 Signal to Cut-Off) [place] 106781-04-21 09:12:00 Test Item Value Reference Range Interpretation Comments Coronavirus (COVID-19) Not Detected (03/01/21 [place] (test code = 4:12 AM) Coronavirus (COVID-19) [place]) [place] [address]-04-21 09:12:00 Test Item Value Reference Range Interpretation Comments Coronavirus (COVID-19) Not Detected (03/01/21 [place] (test code = 4:12 AM) Coronavirus (COVID-19) [place]) [place] [address]-04-21 09:12:00 Test Item Value Reference Range Interpretation Comments Coronavirus (COVID-19) Not Detected (03/01/21 [place] (test code = 4:12 AM) Coronavirus (COVID-19) [place]) [place] 106781-04-21 09:12:00 Test Item Value Reference Range Interpretation Comments Coronavirus (COVID-19) Not Detected (03/01/21 [place] (test code = 4:12 AM) Coronavirus (COVID-19) [place]) [place] [address]-04-21 09:12:00 Test Item Value Reference Range Interpretation Comments Coronavirus (COVID-19) Not Detected (03/01/21 [place] (test code = 4:12 AM) Coronavirus (COVID-19) [place]) [facility] WestXjkgifpKVXUEIAZQR3818-24-03 09:12:00 Test Item Value Reference Range Interpretation Comments Coronavirus (COVID-19) Not Detected (03/01/21 [place] (test code = 4:12 AM) Coronavirus (COVID-19) [place]) [facility] WestZuuzeivOSYMROLGMG0860-93-48 09:12:00 Test Item Value Reference Range Interpretation Comments Coronavirus (COVID-19) Not Detected (03/01/21 [place] (test code = 4:12 AM) Coronavirus (COVID-19) [place]) [facility] WestJcdtzpbUMGTSLWPFM8874-35-60 09:12:00 Test Item Value Reference Range Interpretation Comments Coronavirus (COVID-19) Not Detected (03/01/21 [place] (test code = 4:12 AM) Coronavirus (COVID-19) [place]) [facility] WestColzpugKGLVTSDCVO0154-79-34 09:12:00 Test Item Value Reference Range Interpretation Comments Coronavirus (COVID-19) Not Detected (03/01/21 [place] (test code = 4:12 AM) Coronavirus (COVID-19) [place]) [facility] WestYiksvkeXBYRHYGWZL3370-69-49 09:12:00 Test Item Value Reference Range Interpretation Comments Coronavirus (COVID-19) Not Detected (03/01/21 [place] (test code = 4:12 AM) Coronavirus (COVID-19) [place]) [facility] WestVxyrtnjLZZAVDFUWA2880-84-88 09:12:00 Test Item Value Reference Range Interpretation Comments Coronavirus (COVID-19) Not Detected (03/01/21 [place] (test code = 4:12 AM) Coronavirus (COVID-19) [place]) [facility] WestLggbrogVKTCOYJYEC2519-25-34 09:12:00 Test Item Value Reference Range Interpretation Comments Coronavirus (COVID-19) Not Detected (03/01/21 [place] (test code = 4:12 AM) Coronavirus (COVID-19) [place]) [facility] AND [id number] 08:50:00 Test Item Value Reference Range Interpretation Comments UA Color (test code = Nellie *ABN*(03/01/21 UA Color) 3:50 AM) [facility] AND ZPYMA0592-03-59 08:50:00 Test Item Value Reference Range Interpretation Comments UA Turbidity (test code Marked *ABN*(03/01/21 = UA Turbidity) 3:50 AM) [facility] AND [id number] 08:50:00 Test Item Value Reference Range Interpretation Comments UA Spec Grav (test code = UA Spec 1.025 1 Grav) [facility] AND [id number] 08:50:00 Test Item Value Reference Range Interpretation Comments UA pH (test code = UA pH) 5.0 1 5.0-8.0 [facility] AND [id number] 08:50:00 Test Item Value Reference Range Interpretation Comments UA Protein (test code = UA Negative mg/dL Protein) [facility] AND [id number] 08:50:00 Test Item Value Reference Range Interpretation Comments UA Glucose (test code = UA Negative mg/dL Glucose) [facility] AND [id number] 08:50:00 Test Item Value Reference Range Interpretation Comments UA Ketones (test code = UA Trace mg/dL Ketones) [facility] AND [id number] 08:50:00 Test Item Value Reference Range Interpretation Comments UA Bili (test code = Negative *NA*(03/01/21 UA Bili) 3:50 AM) [facility] AND [id number] 08:50:00 Test Item Value Reference Range Interpretation Comments UA Blood (test code = Negative (03/01/21 3:50 UA Blood) AM) [facility] AND [id number] 08:50:00 Test Item Value Reference Range Interpretation Comments UA Urobilinogen (test code = UA no gt 0.1-1.0 Urobilinogen) [facility] AND [id number] 08:50:00 Test Item Value Reference Range Interpretation Comments UA Nitrite (test code Negative (03/01/21 3:50 = UA Nitrite) AM) [facility] AND [id number] 08:50:00 Test Item Value Reference Range Interpretation Comments UA Leuk Est (test Moderate *ABN*(03/01/21 code = UA Leuk Est) 3:50 AM) [facility] AND [id number] 08:50:00 Test Item Value Reference Range Interpretation Comments UA Sq Epi (test code = UA Sq Occasional /LPF Epi) [facility] AND [id number] 08:50:00 Test Item Value Reference Range Interpretation Comments UA WBC (test code = 45 See_Comment [Automa rosendo message] The UA WBC) system which ge nerated this result transmit rosendo reference range : <=5. The reference range was not used to interpr et this result as josi l/abnormal. [facility] Jake AND [id number] 08:50:00 Test Item Value Reference Range Interpretation Comments UA RBC (test code = 1 See_Comment [Automa rosendo message] The UA RBC) system which ge nerated this result transmit rosendo reference range : <=2. The reference range was not used to interpr et this result as josi l/abnormal. [facility] [id number] 08:50:00 Test Item Value Reference Range Interpretation Comments UA Bacteria (test code = UA Few /HPF Bacteria) [facility] [id number] 08:50:00 Test Item Value Reference Range Interpretation Comments UA Mucus (test code = UA Mucus) Few /LPF [facility] AND [id number] 08:50:00 Test Item Value Reference Range Interpretation Comments UA Hyal Cast (test 1 See_Comment [Automat ed message] The code = UA Hyal Cast) system which generated this result transmit rosendo reference range : <=2. The reference range was not used to interpr et this result as josi l/abnormal. [facility] [id number] 08:50:00 Test Item Value Reference Range Interpretation Comments U Sodium (test code = U Sodium) 40 [facility] [id number] 08:50:00 Test Item Value Reference Range Interpretation Comments U Creatinine (test code = U Creatinine) 42.30 [facility] AND [id number] 08:50:00 Test Item Value Reference Range Interpretation Comments UA Color (test code = Nellie *ABN*(03/01/21 UA Color) 3:50 AM) [facility] AND [id number] 08:50:00 Test Item Value Reference Range Interpretation Comments UA Turbidity (test code Marked *ABN*(03/01/21 = UA Turbidity) 3:50 AM) [facility] [id number] 08:50:00 Test Item Value Reference Range Interpretation Comments UA Spec Grav (test code = UA Spec 1.025 1 Grav) [facility] AND [id number] 08:50:00 Test Item Value Reference Range Interpretation Comments UA pH (test code = UA pH) 5.0 1 5.0-8.0 [facility] AND [id number] 08:50:00 Test Item Value Reference Range Interpretation Comments UA Protein (test code = UA Negative mg/dL Protein) [facility] AND [id number] 08:50:00 Test Item Value Reference Range Interpretation Comments UA Glucose (test code = UA Negative mg/dL Glucose) [facility] AND [id number] 08:50:00 Test Item Value Reference Range Interpretation Comments UA Ketones (test code = UA Trace mg/dL Ketones) [facility] AND [id number] 08:50:00 Test Item Value Reference Range Interpretation Comments UA Bili (test code = Negative *NA*(03/01/21 UA Bili) 3:50 AM) [facility] AND [id number] 08:50:00 Test Item Value Reference Range Interpretation Comments UA Blood (test code = Negative (03/01/21 3:50 UA Blood) AM) [facility] AND [id number] 08:50:00 Test Item Value Reference Range Interpretation Comments UA Urobilinogen (test code = UA no gt 0.1-1.0 Urobilinogen) [facility] AND [id number] 08:50:00 Test Item Value Reference Range Interpretation Comments UA Nitrite (test code Negative (03/01/21 3:50 = UA Nitrite) AM) [facility] AND [id number] 08:50:00 Test Item Value Reference Range Interpretation Comments UA Leuk Est (test Moderate *ABN*(03/01/21 code = UA Leuk Est) 3:50 AM) [facility] AND [id number] 08:50:00 Test Item Value Reference Range Interpretation Comments UA Sq Epi (test code = UA Sq Occasional /LPF Epi) [facility] AND [id number] 08:50:00 Test Item Value Reference Range Interpretation Comments UA WBC (test code = 45 See_Comment [Automa rosendo message] The UA WBC) system which ge nerated this result transmit rosendo reference range : <=5. The reference range was not used to interpr et this result as josi l/abnormal. [facility] [id number] 08:50:00 Test Item Value Reference Range Interpretation Comments UA RBC (test code = 1 See_Comment [Automa rosendo message] The UA RBC) system which ge nerated this result transmit rosendo reference range : <=2. The reference range was not used to interpr et this result as josi l/abnormal. [facility] [id number] 08:50:00 Test Item Value Reference Range Interpretation Comments UA Bacteria (test code = UA Few /HPF Bacteria) [facility] [id number] 08:50:00 Test Item Value Reference Range Interpretation Comments UA Mucus (test code = UA Mucus) Few /LPF [facility] [id number] 08:50:00 Test Item Value Reference Range Interpretation Comments UA Hyal Cast (test 1 See_Comment [Automat ed message] The code = UA Hyal Cast) system which generated this result transmit rosendo reference range : <=2. The reference range was not used to interpr et this result as josi l/abnormal. [facility] [id number] 08:50:00 Test Item Value Reference Range Interpretation Comments U Sodium (test code = U Sodium) 40 [facility] [id number] 08:50:00 Test Item Value Reference Range Interpretation Comments U Creatinine (test code = U Creatinine) 42.30 [facility] [id number] 08:50:00 Test Item Value Reference Range Interpretation Comments UA Color (test code = Nellie *ABN*(03/01/21 UA Color) 3:50 AM) [facility] [id number] 08:50:00 Test Item Value Reference Range Interpretation Comments UA Turbidity (test code Marked *ABN*(03/01/21 = UA Turbidity) 3:50 AM) [facility] [id number] 08:50:00 Test Item Value Reference Range Interpretation Comments UA Spec Grav (test code = UA Spec 1.025 1 Grav) [facility] [id number] 08:50:00 Test Item Value Reference Range Interpretation Comments UA pH (test code = UA pH) 5.0 1 5.0-8.0 [facility] [id number] 08:50:00 Test Item Value Reference Range Interpretation Comments UA Protein (test code = UA Negative mg/dL Protein) [facility] AND [id number] 08:50:00 Test Item Value Reference Range Interpretation Comments UA Glucose (test code = UA Negative mg/dL Glucose) [facility] AND [id number] 08:50:00 Test Item Value Reference Range Interpretation Comments UA Ketones (test code = UA Trace mg/dL Ketones) [facility] AND [id number] 08:50:00 Test Item Value Reference Range Interpretation Comments UA Bili (test code = Negative *NA*(03/01/21 UA Bili) 3:50 AM) [facility] AND [id number] 08:50:00 Test Item Value Reference Range Interpretation Comments UA Blood (test code = Negative (03/01/21 3:50 UA Blood) AM) [facility] AND [id number] 08:50:00 Test Item Value Reference Range Interpretation Comments UA Urobilinogen (test code = UA no gt 0.1-1.0 Urobilinogen) [facility] AND [id number] 08:50:00 Test Item Value Reference Range Interpretation Comments UA Nitrite (test code Negative (03/01/21 3:50 = UA Nitrite) AM) [facility] AND [id number] 08:50:00 Test Item Value Reference Range Interpretation Comments UA Leuk Est (test Moderate *ABN*(03/01/21 code = UA Leuk Est) 3:50 AM) [facility] AND [id number] 08:50:00 Test Item Value Reference Range Interpretation Comments UA Sq Epi (test code = UA Sq Occasional /LPF Epi) [facility] AND [id number] 08:50:00 Test Item Value Reference Range Interpretation Comments UA WBC (test code = 45 See_Comment [Automa rosendo message] The UA WBC) system which ge nerated this result transmit rosendo reference range : <=5. The reference range was not used to interpr et this result as josi l/abnormal. [facility] AND [id number] 08:50:00 Test Item Value Reference Range Interpretation Comments UA RBC (test code = 1 See_Comment [Automa rosendo message] The UA RBC) system which ge nerated this result transmit rosendo reference range : <=2. The reference range was not used to interpr et this result as josi l/abnormal. [facility] [id number] 08:50:00 Test Item Value Reference Range Interpretation Comments UA Bacteria (test code = UA Few /HPF Bacteria) [facility] [id number] 08:50:00 Test Item Value Reference Range Interpretation Comments UA Mucus (test code = UA Mucus) Few /LPF [facility] [id number] 08:50:00 Test Item Value Reference Range Interpretation Comments UA Hyal Cast (test 1 See_Comment [Automat ed message] The code = UA Hyal Cast) system which generated this result transmit rosendo reference range : <=2. The reference range was not used to interpr et this result as josi l/abnormal. [facility] [id number] 08:50:00 Test Item Value Reference Range Interpretation Comments U Sodium (test code = U Sodium) 40 [facility] [id number] 08:50:00 Test Item Value Reference Range Interpretation Comments U Creatinine (test code = U Creatinine) 42.30 [facility] [id number] 08:50:00 Test Item Value Reference Range Interpretation Comments UA Color (test code = Nellie *ABN*(03/01/21 UA Color) 3:50 AM) [facility] [id number] 08:50:00 Test Item Value Reference Range Interpretation Comments UA Turbidity (test code Marked *ABN*(03/01/21 = UA Turbidity) 3:50 AM) [facility] [id number] 08:50:00 Test Item Value Reference Range Interpretation Comments UA Spec Grav (test code = UA Spec 1.025 1 Grav) [facility] [id number] 08:50:00 Test Item Value Reference Range Interpretation Comments UA pH (test code = UA pH) 5.0 1 5.0-8.0 [facility] [id number] 08:50:00 Test Item Value Reference Range Interpretation Comments UA Protein (test code = UA Negative mg/dL Protein) [facility] AND [id number] 08:50:00 Test Item Value Reference Range Interpretation Comments UA Glucose (test code = UA Negative mg/dL Glucose) [facility] AND [id number] 08:50:00 Test Item Value Reference Range Interpretation Comments UA Ketones (test code = UA Trace mg/dL Ketones) [facility] AND [id number] 08:50:00 Test Item Value Reference Range Interpretation Comments UA Bili (test code = Negative *NA*(03/01/21 UA Bili) 3:50 AM) [facility] AND [id number] 08:50:00 Test Item Value Reference Range Interpretation Comments UA Blood (test code = Negative (03/01/21 3:50 UA Blood) AM) [facility] AND [id number] 08:50:00 Test Item Value Reference Range Interpretation Comments UA Urobilinogen (test code = UA no gt 0.1-1.0 Urobilinogen) [facility] AND [id number] 08:50:00 Test Item Value Reference Range Interpretation Comments UA Nitrite (test code Negative (03/01/21 3:50 = UA Nitrite) AM) [facility] AND [id number] 08:50:00 Test Item Value Reference Range Interpretation Comments UA Leuk Est (test Moderate *ABN*(03/01/21 code = UA Leuk Est) 3:50 AM) [facility] AND [id number] 08:50:00 Test Item Value Reference Range Interpretation Comments UA Sq Epi (test code = UA Sq Occasional /LPF Epi) [facility] AND [id number] 08:50:00 Test Item Value Reference Range Interpretation Comments UA WBC (test code = 45 See_Comment [Automa rosendo message] The UA WBC) system which ge nerated this result transmit rosendo reference range : <=5. The reference range was not used to interpr et this result as josi l/abnormal. [facility] AND [id number] 08:50:00 Test Item Value Reference Range Interpretation Comments UA RBC (test code = 1 See_Comment [Automa rosendo message] The UA RBC) system which ge nerated this result transmit rosendo reference range : <=2. The reference range was not used to interpr et this result as josi l/abnormal. [facility] AND [id number] 08:50:00 Test Item Value Reference Range Interpretation Comments UA Bacteria (test code = UA Few /HPF Bacteria) [facility] AND [id number] 08:50:00 Test Item Value Reference Range Interpretation Comments UA Mucus (test code = UA Mucus) Few /LPF [facility] AND [id number] 08:50:00 Test Item Value Reference Range Interpretation Comments UA Hyal Cast (test 1 See_Comment [Automat ed message] The code = UA Hyal Cast) system which generated this result transmit rosendo reference range : <=2. The reference range was not used to interpr et this result as josi l/abnormal. [id number] 08:50:00 Test Item Value Reference Range Interpretation Comments U Sodium (test code = U Sodium) 40 [facility] [id number] 08:50:00 Test Item Value Reference Range Interpretation Comments U Creatinine (test code = U Creatinine) 42.30 [facility] AND [id number] 08:50:00 Test Item Value Reference Range Interpretation Comments UA Color (test code = Nellie *ABN*(03/01/21 UA Color) 3:50 AM) [facility] AND [id number] 08:50:00 Test Item Value Reference Range Interpretation Comments UA Turbidity (test code Marked *ABN*(03/01/21 = UA Turbidity) 3:50 AM) [facility] AND [id number] 08:50:00 Test Item Value Reference Range Interpretation Comments UA Spec Grav (test code = UA Spec 1.025 1 Grav) [facility] AND [id number] 08:50:00 Test Item Value Reference Range Interpretation Comments UA pH (test code = UA pH) 5.0 1 5.0-8.0 [facility] AND [id number] 08:50:00 Test Item Value Reference Range Interpretation Comments UA Protein (test code = UA Negative mg/dL Protein) [facility] AND [id number] 08:50:00 Test Item Value Reference Range Interpretation Comments UA Glucose (test code = UA Negative mg/dL Glucose) [facility] AND [id number] 08:50:00 Test Item Value Reference Range Interpretation Comments UA Ketones (test code = UA Trace mg/dL Ketones) [facility] AND [id number] 08:50:00 Test Item Value Reference Range Interpretation Comments UA Bili (test code = Negative *NA*(03/01/21 UA Bili) 3:50 AM) [facility] [id number] 08:50:00 Test Item Value Reference Range Interpretation Comments UA Blood (test code = Negative (03/01/21 3:50 UA Blood) AM) [facility] [id number] 08:50:00 Test Item Value Reference Range Interpretation Comments UA Urobilinogen (test code = UA no gt 0.1-1.0 Urobilinogen) [facility] [id number] 08:50:00 Test Item Value Reference Range Interpretation Comments UA Nitrite (test code Negative (03/01/21 3:50 = UA Nitrite) AM) [facility] [id number] 08:50:00 Test Item Value Reference Range Interpretation Comments UA Leuk Est (test Moderate *ABN*(03/01/21 code = UA Leuk Est) 3:50 AM) [facility] [id number] 08:50:00 Test Item Value Reference Range Interpretation Comments UA Sq Epi (test code = UA Sq Occasional /LPF Epi) [facility] [id number] 08:50:00 Test Item Value Reference Range Interpretation Comments UA WBC (test code = 45 See_Comment [Automa rosendo message] The UA WBC) system which ge nerated this result transmit rosendo reference range : <=5. The reference range was not used to interpr et this result as josi l/abnormal. [facility] [id number] 08:50:00 Test Item Value Reference Range Interpretation Comments UA RBC (test code = 1 See_Comment [Automa rosendo message] The UA RBC) system which ge nerated this result transmit rosendo reference range : <=2. The reference range was not used to interpr et this result as josi l/abnormal. [facility] [id number] 08:50:00 Test Item Value Reference Range Interpretation Comments UA Bacteria (test code = UA Few /HPF Bacteria) [facility] [id number] 08:50:00 Test Item Value Reference Range Interpretation Comments UA Mucus (test code = UA Mucus) Few /LPF [facility] AND [id number] 08:50:00 Test Item Value Reference Range Interpretation Comments UA Hyal Cast (test 1 See_Comment [Automat ed message] The code = UA Hyal Cast) system which generated this result transmit rosendo reference range : <=2. The reference range was not used to interpr et this result as josi l/abnormal. [facility] [id number] 08:50:00 Test Item Value Reference Range Interpretation Comments U Sodium (test code = U Sodium) 40 [facility] [id number] 08:50:00 Test Item Value Reference Range Interpretation Comments U Creatinine (test code = U Creatinine) 42.30 [facility] AND [id number] 08:50:00 Test Item Value Reference Range Interpretation Comments UA Color (test code = Nellie *ABN*(03/01/21 UA Color) 3:50 AM) [facility] AND [id number] 08:50:00 Test Item Value Reference Range Interpretation Comments UA Turbidity (test code Marked *ABN*(03/01/21 = UA Turbidity) 3:50 AM) [facility] AND [id number] 08:50:00 Test Item Value Reference Range Interpretation Comments UA Spec Grav (test code = UA Spec 1.025 1 Grav) [facility] AND [id number] 08:50:00 Test Item Value Reference Range Interpretation Comments UA pH (test code = UA pH) 5.0 1 5.0-8.0 [facility] AND [id number] 08:50:00 Test Item Value Reference Range Interpretation Comments UA Protein (test code = UA Negative mg/dL Protein) [facility] AND [id number] 08:50:00 Test Item Value Reference Range Interpretation Comments UA Glucose (test code = UA Negative mg/dL Glucose) [facility] AND [id number] 08:50:00 Test Item Value Reference Range Interpretation Comments UA Ketones (test code = UA Trace mg/dL Ketones) [facility] AND [id number] 08:50:00 Test Item Value Reference Range Interpretation Comments UA Bili (test code = Negative *NA*(03/01/21 UA Bili) 3:50 AM) [facility] AND [id number] 08:50:00 Test Item Value Reference Range Interpretation Comments UA Blood (test code = Negative (03/01/21 3:50 UA Blood) AM) [facility] [id number] 08:50:00 Test Item Value Reference Range Interpretation Comments UA Urobilinogen (test code = UA no gt 0.1-1.0 Urobilinogen) [facility] AND [id number] 08:50:00 Test Item Value Reference Range Interpretation Comments UA Nitrite (test code Negative (03/01/21 3:50 = UA Nitrite) AM) [facility] [id number] 08:50:00 Test Item Value Reference Range Interpretation Comments UA Leuk Est (test Moderate *ABN*(03/01/21 code = UA Leuk Est) 3:50 AM) [facility] [id number] 08:50:00 Test Item Value Reference Range Interpretation Comments UA Sq Epi (test code = UA Sq Occasional /LPF Epi) [facility] AND [id number] 08:50:00 Test Item Value Reference Range Interpretation Comments UA WBC (test code = 45 See_Comment [Automa rosendo message] The UA WBC) system which ge nerated this result transmit rosendo reference range : <=5. The reference range was not used to interpr et this result as josi l/abnormal. [facility] AND [id number] 08:50:00 Test Item Value Reference Range Interpretation Comments UA RBC (test code = 1 See_Comment [Automa rosendo message] The UA RBC) system which ge nerated this result transmit rosendo reference range : <=2. The reference range was not used to interpr et this result as josi l/abnormal. [facility] AND [id number] 08:50:00 Test Item Value Reference Range Interpretation Comments UA Bacteria (test code = UA Few /HPF Bacteria) [facility] [id number] 08:50:00 Test Item Value Reference Range Interpretation Comments UA Mucus (test code = UA Mucus) Few /LPF [facility] AND [id number] 08:50:00 Test Item Value Reference Range Interpretation Comments UA Hyal Cast (test 1 See_Comment [Automat ed message] The code = UA Hyal Cast) system which generated this result transmit rosendo reference range : <=2. The reference range was not used to interpr et this result as josi l/abnormal. [facility] [id number] 08:50:00 Test Item Value Reference Range Interpretation Comments U Sodium (test code = U Sodium) 40 [facility] [id number] 08:50:00 Test Item Value Reference Range Interpretation Comments U Creatinine (test code = U Creatinine) 42.30 [facility] AND [id number] 08:50:00 Test Item Value Reference Range Interpretation Comments UA Color (test code = Nellie *ABN*(03/01/21 UA Color) 3:50 AM) [facility] AND [id number] 08:50:00 Test Item Value Reference Range Interpretation Comments UA Turbidity (test code Marked *ABN*(03/01/21 = UA Turbidity) 3:50 AM) [facility] AND [id number] 08:50:00 Test Item Value Reference Range Interpretation Comments UA Spec Grav (test code = UA Spec 1.025 1 Grav) [facility] AND [id number] 08:50:00 Test Item Value Reference Range Interpretation Comments UA pH (test code = UA pH) 5.0 1 5.0-8.0 [facility] AND [id number] 08:50:00 Test Item Value Reference Range Interpretation Comments UA Protein (test code = UA Negative mg/dL Protein) [facility] AND [id number] 08:50:00 Test Item Value Reference Range Interpretation Comments UA Glucose (test code = UA Negative mg/dL Glucose) [facility] AND [id number] 08:50:00 Test Item Value Reference Range Interpretation Comments UA Ketones (test code = UA Trace mg/dL Ketones) [facility] AND [id number] 08:50:00 Test Item Value Reference Range Interpretation Comments UA Bili (test code = Negative *NA*(03/01/21 UA Bili) 3:50 AM) [facility] AND [id number] 08:50:00 Test Item Value Reference Range Interpretation Comments UA Blood (test code = Negative (03/01/21 3:50 UA Blood) AM) [facility] AND [id number] 08:50:00 Test Item Value Reference Range Interpretation Comments UA Urobilinogen (test code = UA no gt 0.1-1.0 [facility]ogen) [facility] [id number] 08:50:00 Test Item Value Reference Range Interpretation Comments UA Nitrite (test code Negative (03/01/21 3:50 = UA Nitrite) AM) [facility] [id number] 08:50:00 Test Item Value Reference Range Interpretation Comments UA Leuk Est (test Moderate *ABN*(03/01/21 code = UA Leuk Est) 3:50 AM) [facility] [id number] 08:50:00 Test Item Value Reference Range Interpretation Comments UA Sq Epi (test code = UA Sq Occasional /LPF Epi) [facility] [id number] 08:50:00 Test Item Value Reference Range Interpretation Comments UA WBC (test code = 45 See_Comment [Automa rosendo message] The UA WBC) system which ge nerated this result transmit rosendo reference range : <=5. The reference range was not used to interpr et this result as josi l/abnormal. [facility] [id number] 08:50:00 Test Item Value Reference Range Interpretation Comments UA RBC (test code = 1 See_Comment [Automa rosendo message] The UA RBC) system which ge nerated this result transmit rosendo reference range : <=2. The reference range was not used to interpr et this result as josi l/abnormal. [facility] [id number] 08:50:00 Test Item Value Reference Range Interpretation Comments UA Bacteria (test code = UA Few /HPF Bacteria) [facility] [id number] 08:50:00 Test Item Value Reference Range Interpretation Comments UA Mucus (test code = UA Mucus) Few /LPF [facility] [id number] 08:50:00 Test Item Value Reference Range Interpretation Comments UA Hyal Cast (test 1 See_Comment [Automat ed message] The code = UA Hyal Cast) system which generated this result transmit rosendo reference range : <=2. The reference range was not used to interpr et this result as josi l/abnormal. [facility] [id number] 08:50:00 Test Item Value Reference Range Interpretation Comments U Sodium (test code = U Sodium) 40 [facility] [id number] 08:50:00 Test Item Value Reference Range Interpretation Comments U Creatinine (test code = U Creatinine) 42.30 [facility] AND [id number] 08:50:00 Test Item Value Reference Range Interpretation Comments UA Color (test code = Nelile *ABN*(03/01/21 UA Color) 3:50 AM) [facility] AND [id number] 08:50:00 Test Item Value Reference Range Interpretation Comments UA Turbidity (test code Marked *ABN*(03/01/21 = UA Turbidity) 3:50 AM) [facility] AND [id number] 08:50:00 Test Item Value Reference Range Interpretation Comments UA Spec Grav (test code = UA Spec 1.025 1 Grav) [facility] AND [id number] 08:50:00 Test Item Value Reference Range Interpretation Comments UA pH (test code = UA pH) 5.0 1 5.0-8.0 [facility] AND [id number] 08:50:00 Test Item Value Reference Range Interpretation Comments UA Protein (test code = UA Negative mg/dL Protein) [facility] AND [id number] 08:50:00 Test Item Value Reference Range Interpretation Comments UA Glucose (test code = UA Negative mg/dL Glucose) [facility] AND [id number] 08:50:00 Test Item Value Reference Range Interpretation Comments UA Ketones (test code = UA Trace mg/dL Ketones) [facility] AND [id number] 08:50:00 Test Item Value Reference Range Interpretation Comments UA Bili (test code = Negative *NA*(03/01/21 UA Bili) 3:50 AM) [facility] AND [id number] 08:50:00 Test Item Value Reference Range Interpretation Comments UA Blood (test code = Negative (03/01/21 3:50 UA Blood) AM) [facility] AND [id number] 08:50:00 Test Item Value Reference Range Interpretation Comments UA Urobilinogen (test code = UA no gt 0.1-1.0 Urobilinogen) [facility] AND [id number] 08:50:00 Test Item Value Reference Range Interpretation Comments UA Nitrite (test code Negative (03/01/21 3:50 = UA Nitrite) AM) [facility] [id number] 08:50:00 Test Item Value Reference Range Interpretation Comments UA Leuk Est (test Moderate *ABN*(03/01/21 code = UA Leuk Est) 3:50 AM) [facility] AND [id number] 08:50:00 Test Item Value Reference Range Interpretation Comments UA Sq Epi (test code = UA Sq Occasional /LPF Epi) [facility] AND [id number] 08:50:00 Test Item Value Reference Range Interpretation Comments UA WBC (test code = 45 See_Comment [Automa rosendo message] The UA WBC) system which ge nerated this result transmit rosendo reference range : <=5. The reference range was not used to interpr et this result as josi l/abnormal. [facility] AND [id number] 08:50:00 Test Item Value Reference Range Interpretation Comments UA RBC (test code = 1 See_Comment [Automa rosendo message] The UA RBC) system which ge nerated this result transmit rosendo reference range : <=2. The reference range was not used to interpr et this result as josi l/abnormal. [facility] [id number] 08:50:00 Test Item Value Reference Range Interpretation Comments UA Bacteria (test code = UA Few /HPF Bacteria) [facility] AND [id number] 08:50:00 Test Item Value Reference Range Interpretation Comments UA Mucus (test code = UA Mucus) Few /LPF [facility] AND [id number] 08:50:00 Test Item Value Reference Range Interpretation Comments UA Hyal Cast (test 1 See_Comment [Automat ed message] The code = UA Hyal Cast) system which generated this result transmit rosendo reference range : <=2. The reference range was not used to interpr et this result as josi l/abnormal. [facility] [id number] 08:50:00 Test Item Value Reference Range Interpretation Comments U Sodium (test code = U Sodium) 40 [facility] [id number] 08:50:00 Test Item Value Reference Range Interpretation Comments U Creatinine (test code = U Creatinine) 42.30 [facility] AND [id number] 08:50:00 Test Item Value Reference Range Interpretation Comments UA Color (test code = Nellie *ABN*(03/01/21 UA Color) 3:50 AM) [facility] AND [id number] 08:50:00 Test Item Value Reference Range Interpretation Comments UA Turbidity (test code Marked *ABN*(03/01/21 = UA Turbidity) 3:50 AM) [facility] AND [id number] 08:50:00 Test Item Value Reference Range Interpretation Comments UA Spec Grav (test code = UA Spec 1.025 1 Grav) [facility] AND [id number] 08:50:00 Test Item Value Reference Range Interpretation Comments UA pH (test code = UA pH) 5.0 1 5.0-8.0 [facility] AND [id number] 08:50:00 Test Item Value Reference Range Interpretation Comments UA Protein (test code = UA Negative mg/dL Protein) [facility] AND [id number] 08:50:00 Test Item Value Reference Range Interpretation Comments UA Glucose (test code = UA Negative mg/dL Glucose) [facility] AND [id number] 08:50:00 Test Item Value Reference Range Interpretation Comments UA Ketones (test code = UA Trace mg/dL Ketones) [facility] AND [id number] 08:50:00 Test Item Value Reference Range Interpretation Comments UA Bili (test code = Negative *NA*(03/01/21 UA Bili) 3:50 AM) [facility] AND [id number] 08:50:00 Test Item Value Reference Range Interpretation Comments UA Blood (test code = Negative (03/01/21 3:50 UA Blood) AM) [facility] AND [id number] 08:50:00 Test Item Value Reference Range Interpretation Comments UA Urobilinogen (test code = UA no gt 0.1-1.0 Urobilinogen) [facility] AND [id number] 08:50:00 Test Item Value Reference Range Interpretation Comments UA Nitrite (test code Negative (03/01/21 3:50 = UA Nitrite) AM) [facility] AND [id number] 08:50:00 Test Item Value Reference Range Interpretation Comments UA Leuk Est (test Moderate *ABN*(03/01/21 code = UA Leuk Est) 3:50 AM) [facility] [id number] 08:50:00 Test Item Value Reference Range Interpretation Comments UA Sq Epi (test code = UA Sq Occasional /LPF Epi) [facility] [id number] 08:50:00 Test Item Value Reference Range Interpretation Comments UA WBC (test code = 45 See_Comment [Automa rosendo message] The UA WBC) system which ge nerated this result transmit rosedno reference range : <=5. The reference range was not used to interpr et this result as josi l/abnormal. [facility] [id number] 08:50:00 Test Item Value Reference Range Interpretation Comments UA RBC (test code = 1 See_Comment [Automa rosendo message] The UA RBC) system which ge nerated this result transmit rosendo reference range : <=2. The reference range was not used to interpr et this result as josi l/abnormal. [facility] [id number] 08:50:00 Test Item Value Reference Range Interpretation Comments UA Bacteria (test code = UA Few /HPF Bacteria) [facility] [id number] 08:50:00 Test Item Value Reference Range Interpretation Comments UA Mucus (test code = UA Mucus) Few /LPF [facility] [id number] 08:50:00 Test Item Value Reference Range Interpretation Comments UA Hyal Cast (test 1 See_Comment [Automat ed message] The code = UA Hyal Cast) system which generated this result transmit rosendo reference range : <=2. The reference range was not used to interpr et this result as josi l/abnormal. [facility] [id number] 08:50:00 Test Item Value Reference Range Interpretation Comments U Sodium (test code = U Sodium) 40 [facility] [id number] 08:50:00 Test Item Value Reference Range Interpretation Comments U Creatinine (test code = U Creatinine) 42.30 [facility] [id number] 08:50:00 Test Item Value Reference Range Interpretation Comments UA Color (test code = Nellie *ABN*(03/01/21 UA Color) 3:50 AM) [facility] [id number] 08:50:00 Test Item Value Reference Range Interpretation Comments UA Turbidity (test code Marked *ABN*(03/01/21 = UA Turbidity) 3:50 AM) [facility] AND [id number] 08:50:00 Test Item Value Reference Range Interpretation Comments UA Spec Grav (test code = UA Spec 1.025 1 Grav) [facility] AND [id number] 08:50:00 Test Item Value Reference Range Interpretation Comments UA pH (test code = UA pH) 5.0 1 5.0-8.0 [facility] AND [id number] 08:50:00 Test Item Value Reference Range Interpretation Comments UA Protein (test code = UA Negative mg/dL Protein) [facility] AND [id number] 08:50:00 Test Item Value Reference Range Interpretation Comments UA Glucose (test code = UA Negative mg/dL Glucose) [facility] AND [id number] 08:50:00 Test Item Value Reference Range Interpretation Comments UA Ketones (test code = UA Trace mg/dL Ketones) [facility] AND [id number] 08:50:00 Test Item Value Reference Range Interpretation Comments UA Bili (test code = Negative *NA*(03/01/21 UA Bili) 3:50 AM) [facility] AND [id number] 08:50:00 Test Item Value Reference Range Interpretation Comments UA Blood (test code = Negative (03/01/21 3:50 UA Blood) AM) [facility] AND [id number] 08:50:00 Test Item Value Reference Range Interpretation Comments UA Urobilinogen (test code = UA no gt 0.1-1.0 Urobilinogen) [facility] AND [id number] 08:50:00 Test Item Value Reference Range Interpretation Comments UA Nitrite (test code Negative (03/01/21 3:50 = UA Nitrite) AM) [facility] AND [id number] 08:50:00 Test Item Value Reference Range Interpretation Comments UA Leuk Est (test Moderate *ABN*(03/01/21 code = UA Leuk Est) 3:50 AM) [facility] AND [id number] 08:50:00 Test Item Value Reference Range Interpretation Comments UA Sq Epi (test code = UA Sq Occasional /LPF Epi) [facility] [id number] 08:50:00 Test Item Value Reference Range Interpretation Comments UA WBC (test code = 45 See_Comment [Automa rosendo message] The UA WBC) system which ge nerated this result transmit rosendo reference range : <=5. The reference range was not used to interpr et this result as josi l/abnormal. [facility] [id number] 08:50:00 Test Item Value Reference Range Interpretation Comments UA RBC (test code = 1 See_Comment [Automa rosendo message] The UA RBC) system which ge nerated this result transmit rosendo reference range : <=2. The reference range was not used to interpr et this result as josi l/abnormal. [facility] [id number] 08:50:00 Test Item Value Reference Range Interpretation Comments UA Bacteria (test code = UA Few /HPF Bacteria) [facility] [id number] 08:50:00 Test Item Value Reference Range Interpretation Comments UA Mucus (test code = UA Mucus) Few /LPF [facility] [id number] 08:50:00 Test Item Value Reference Range Interpretation Comments UA Hyal Cast (test 1 See_Comment [Automat ed message] The code = UA Hyal Cast) system which generated this result transmit rosendo reference range : <=2. The reference range was not used to interpr et this result as josi l/abnormal. [facility] [id number] 08:50:00 Test Item Value Reference Range Interpretation Comments U Sodium (test code = U Sodium) 40 [facility] [id number] 08:50:00 Test Item Value Reference Range Interpretation Comments U Creatinine (test code = U Creatinine) 42.30 [facility] AND [id number] 08:50:00 Test Item Value Reference Range Interpretation Comments UA Color (test code = Nellie *ABN*(03/01/21 UA Color) 3:50 AM) [facility] [id number] 08:50:00 Test Item Value Reference Range Interpretation Comments UA Turbidity (test code Marked *ABN*(03/01/21 = UA Turbidity) 3:50 AM) [facility] [id number] 08:50:00 Test Item Value Reference Range Interpretation Comments UA Spec Grav (test code = UA Spec 1.025 1 Grav) [facility] AND [id number] 08:50:00 Test Item Value Reference Range Interpretation Comments UA pH (test code = UA pH) 5.0 1 5.0-8.0 [facility] AND [id number] 08:50:00 Test Item Value Reference Range Interpretation Comments UA Protein (test code = UA Negative mg/dL Protein) [facility] AND [id number] 08:50:00 Test Item Value Reference Range Interpretation Comments UA Glucose (test code = UA Negative mg/dL Glucose) [facility] AND [id number] 08:50:00 Test Item Value Reference Range Interpretation Comments UA Ketones (test code = UA Trace mg/dL Ketones) [facility] AND [id number] 08:50:00 Test Item Value Reference Range Interpretation Comments UA Bili (test code = Negative *NA*(03/01/21 UA Bili) 3:50 AM) [facility] AND [id number] 08:50:00 Test Item Value Reference Range Interpretation Comments UA Blood (test code = Negative (03/01/21 3:50 UA Blood) AM) [facility] AND [id number] 08:50:00 Test Item Value Reference Range Interpretation Comments UA Urobilinogen (test code = UA no gt 0.1-1.0 Urobilinogen) [facility] AND [id number] 08:50:00 Test Item Value Reference Range Interpretation Comments UA Nitrite (test code Negative (03/01/21 3:50 = UA Nitrite) AM) [facility] AND [id number] 08:50:00 Test Item Value Reference Range Interpretation Comments UA Leuk Est (test Moderate *ABN*(03/01/21 code = UA Leuk Est) 3:50 AM) [facility] AND [id number] 08:50:00 Test Item Value Reference Range Interpretation Comments UA Sq Epi (test code = UA Sq Occasional /LPF Epi) [facility] AND [id number] 08:50:00 Test Item Value Reference Range Interpretation Comments UA WBC (test code = 45 See_Comment [Automa rosendo message] The UA WBC) system which ge nerated this result transmit rosendo reference range : <=5. The reference range was not used to interpr et this result as josi l/abnormal. [facility] [id number] 08:50:00 Test Item Value Reference Range Interpretation Comments UA RBC (test code = 1 See_Comment [Automa rosendo message] The UA RBC) system which ge nerated this result transmit rosendo reference range : <=2. The reference range was not used to interpr et this result as josi l/abnormal. [facility] [id number] 08:50:00 Test Item Value Reference Range Interpretation Comments UA Bacteria (test code = UA Few /HPF Bacteria) [facility] [id number] 08:50:00 Test Item Value Reference Range Interpretation Comments UA Mucus (test code = UA Mucus) Few /LPF [facility] [id number] 08:50:00 Test Item Value Reference Range Interpretation Comments UA Hyal Cast (test 1 See_Comment [Automat ed message] The code = UA Hyal Cast) system which generated this result transmit rosendo reference range : <=2. The reference range was not used to interpr et this result as josi l/abnormal. [facility] [id number] 08:50:00 Test Item Value Reference Range Interpretation Comments U Sodium (test code = U Sodium) 40 [facility] [id number] 08:50:00 Test Item Value Reference Range Interpretation Comments U Creatinine (test code = U Creatinine) 42.30 [facility] AND [id number] 08:50:00 Test Item Value Reference Range Interpretation Comments UA Color (test code = Nellie *ABN*(03/01/21 UA Color) 3:50 AM) [facility] [id number] 08:50:00 Test Item Value Reference Range Interpretation Comments UA Turbidity (test code Marked *ABN*(03/01/21 = UA Turbidity) 3:50 AM) [facility] [id number] 08:50:00 Test Item Value Reference Range Interpretation Comments UA Spec Grav (test code = UA Spec 1.025 1 Grav) [facility] [id number] 08:50:00 Test Item Value Reference Range Interpretation Comments UA pH (test code = UA pH) 5.0 1 5.0-8.0 [facility] AND [id number] 08:50:00 Test Item Value Reference Range Interpretation Comments UA Protein (test code = UA Negative mg/dL Protein) [facility] AND [id number] 08:50:00 Test Item Value Reference Range Interpretation Comments UA Glucose (test code = UA Negative mg/dL Glucose) [facility] AND [id number] 08:50:00 Test Item Value Reference Range Interpretation Comments UA Ketones (test code = UA Trace mg/dL Ketones) [facility] AND [id number] 08:50:00 Test Item Value Reference Range Interpretation Comments UA Bili (test code = Negative *NA*(03/01/21 UA Bili) 3:50 AM) [facility] AND [id number] 08:50:00 Test Item Value Reference Range Interpretation Comments UA Blood (test code = Negative (03/01/21 3:50 UA Blood) AM) [facility] AND [id number] 08:50:00 Test Item Value Reference Range Interpretation Comments UA Urobilinogen (test code = UA no gt 0.1-1.0 Urobilinogen) [facility] AND [id number] 08:50:00 Test Item Value Reference Range Interpretation Comments UA Nitrite (test code Negative (03/01/21 3:50 = UA Nitrite) AM) [facility] AND [id number] 08:50:00 Test Item Value Reference Range Interpretation Comments UA Leuk Est (test Moderate *ABN*(03/01/21 code = UA Leuk Est) 3:50 AM) [facility] AND [id number] 08:50:00 Test Item Value Reference Range Interpretation Comments UA Sq Epi (test code = UA Sq Occasional /LPF Epi) [facility] AND [id number] 08:50:00 Test Item Value Reference Range Interpretation Comments UA WBC (test code = 45 See_Comment [Automa rosendo message] The UA WBC) system which ge nerated this result transmit rosendo reference range : <=5. The reference range was not used to interpr et this result as josi l/abnormal. [facility] AND [id number] 08:50:00 Test Item Value Reference Range Interpretation Comments UA RBC (test code = 1 See_Comment [Automa rosendo message] The UA RBC) system which ge nerated this result transmit rosendo reference range : <=2. The reference range was not used to interpr et this result as josi l/abnormal. [facility] AND [id number] 08:50:00 Test Item Value Reference Range Interpretation Comments UA Bacteria (test code = UA Few /HPF Bacteria) [facility] AND [id number] 08:50:00 Test Item Value Reference Range Interpretation Comments UA Mucus (test code = UA Mucus) Few /LPF [facility] AND [id number] 08:50:00 Test Item Value Reference Range Interpretation Comments UA Hyal Cast (test 1 See_Comment [Automat ed message] The code = UA Hyal Cast) system which generated this result transmit rosendo reference range : <=2. The reference range was not used to interpr et this result as josi l/abnormal. [place] [id number] 08:50:00 Test Item Value Reference Range Interpretation Comments U Sodium (test code = U Sodium) 40 [place] [id number] 08:50:00 Test Item Value Reference Range Interpretation Comments U Creatinine (test code = U Creatinine) 42.30 [place] [id number] 08:45:36 Test Item Value Reference Range Interpretation Comments Glucose Lvl (test code = Glucose Lvl) 89 70-99 [place] [id number] 08:45:36 Test Item Value Reference Range Interpretation Comments BUN (test code = BUN) 45 7-22 [place] [id number] 08:45:36 Test Item Value Reference Range Interpretation Comments Creatinine Lvl (test code = Creatinine 1.65 0.50-1.40 Lvl) [place] [id number] 08:45:36 Test Item Value Reference Range Interpretation Comments Sodium Lvl (test code = Sodium Lvl) 140 135-145 [place] [id number] 08:45:36 Test Item Value Reference Range Interpretation Comments Potassium Lvl (test code = Potassium 4.1 3.5-5.1 Lvl) [place] [id number] 08:45:36 Test Item Value Reference Range Interpretation Comments Chloride Lvl (test code = Chloride Lvl) 114 95-109 [place] [id number] 08:45:36 Test Item Value Reference Range Interpretation Comments CO2 (test code = CO2) 20 24-32 [place] [id number] 08:45:36 Test Item Value Reference Range Interpretation Comments Calcium Lvl (test code = Calcium Lvl) 8.4 8.5-10.5 [place] 542561-04-21 08:45:36 Test Item Value Reference Range Interpretation Comments Total Protein (test code = Total 6.6 6.4-8.4 Protein) [place] 542561-04-21 08:45:36 Test Item Value Reference Range Interpretation Comments Albumin Lvl (test code = Albumin Lvl) 2.6 3.5-5.0 [place] 542561-04-21 08:45:36 Test Item Value Reference Range Interpretation Comments ALANINE AMINOTRANSFERASE 217 See_Comment [A utomated message] (test code = ALANINE The sys tem which AMINOTRANSFERASE) generated this result transmitted ref erence range: <=65. Th e reference range was not used to int erpret this result as normal/abnormal . [place] 542561-04-21 08:45:36 Test Item Value Reference Range Interpretation Comments ASPARTATE TRANSAMINASE 153 See_Comment [Aut omated message] (test code = ASPARTATE The s ystem which TRANSAMINASE) generated this result transmitted ref erence range: <=37. Th e reference range was not used to interpr et this result as normal/abnormal . [place] 542561-04-21 08:45:36 Test Item Value Reference Range Interpretation Comments Alk Phos (test code = Alk Phos) 249 39-136 [place] 542561-04-21 08:45:36 Test Item Value Reference Range Interpretation Comments Bili Total (test code = Bili Total) 0.5 0.2-1.3 [place] [address]-04-21 08:45:36 Test Item Value Reference Range Interpretation Comments AGAP (test code = AGAP) 10.1 10.0-20.0 [place] [address]-04-21 08:45:36 Test Item Value Reference Range Interpretation Comments B/C Ratio (test code = B/C Ratio) 27 1 6-25 [place] 542561-04-21 08:45:36 Test Item Value Reference Range Interpretation Comments Globulin (test code = Globulin) 4.0 2.7-4.2 [place] 542561-04-21 08:45:36 Test Item Value Reference Range Interpretation Comments A/G Ratio (test code = A/G Ratio) 0.6 1 0.7-1.6 [place] [address]-04-21 08:45:36 Test Item Value Reference Range Interpretation Comments eGFR (test code = eGFR) 29 [place] [address]-04-21 08:45:36 Test Item Value Reference Range Interpretation Comments Glucose Lvl (test code = Glucose Lvl) 89 70-99 [place] 542561-04-21 08:45:36 Test Item Value Reference Range Interpretation Comments BUN (test code = BUN) 45 7-22 [place] 542561-04-21 08:45:36 Test Item Value Reference Range Interpretation Comments Creatinine Lvl (test code = Creatinine 1.65 0.50-1.40 Lvl) [place] 542561-04-21 08:45:36 Test Item Value Reference Range Interpretation Comments Sodium Lvl (test code = Sodium Lvl) 140 135-145 [place] 542561-04-21 08:45:36 Test Item Value Reference Range Interpretation Comments Potassium Lvl (test code = Potassium 4.1 3.5-5.1 Lvl) [place] 542561-04-21 08:45:36 Test Item Value Reference Range Interpretation Comments Chloride Lvl (test code = Chloride Lvl) 114 95-109 [place] 542561-04-21 08:45:36 Test Item Value Reference Range Interpretation Comments CO2 (test code = CO2) 20 24-32 [place] 542561-04-21 08:45:36 Test Item Value Reference Range Interpretation Comments Calcium Lvl (test code = Calcium Lvl) 8.4 8.5-10.5 [place] 542561-04-21 08:45:36 Test Item Value Reference Range Interpretation Comments Total Protein (test code = Total 6.6 6.4-8.4 Protein) [place] 542561-04-21 08:45:36 Test Item Value Reference Range Interpretation Comments Albumin Lvl (test code = Albumin Lvl) 2.6 3.5-5.0 [place] 542561-04-21 08:45:36 Test Item Value Reference Range Interpretation Comments ALANINE AMINOTRANSFERASE 217 See_Comment [A utomated message] (test code = ALANINE The sys tem which AMINOTRANSFERASE) generated this result transmitted ref erence range: <=65. Th e reference range was not used to int erpret this result as normal/abnormal . [place] 542561-04-21 08:45:36 Test Item Value Reference Range Interpretation Comments ASPARTATE TRANSAMINASE 153 See_Comment [Aut omated message] (test code = ASPARTATE The s ystem which TRANSAMINASE) generated this result transmitted ref erence range: <=37. Th e reference range was not used to interpr et this result as normal/abnormal . [place] 542561-04-21 08:45:36 Test Item Value Reference Range Interpretation Comments Alk Phos (test code = Alk Phos) 249 39-136 [place] 542561-04-21 08:45:36 Test Item Value Reference Range Interpretation Comments Bili Total (test code = Bili Total) 0.5 0.2-1.3 [place] [address]-04-21 08:45:36 Test Item Value Reference Range Interpretation Comments AGAP (test code = AGAP) 10.1 10.0-20.0 [place] 542561-04-21 08:45:36 Test Item Value Reference Range Interpretation Comments B/C Ratio (test code = B/C Ratio) 27 1 6-25 [place] 542561-04-21 08:45:36 Test Item Value Reference Range Interpretation Comments Globulin (test code = Globulin) 4.0 2.7-4.2 [place] [address]-04-21 08:45:36 Test Item Value Reference Range Interpretation Comments A/G Ratio (test code = A/G Ratio) 0.6 1 0.7-1.6 [place] 542561-04-21 08:45:36 Test Item Value Reference Range Interpretation Comments eGFR (test code = eGFR) 29 [place] 542561-04-21 08:45:36 Test Item Value Reference Range Interpretation Comments Glucose Lvl (test code = Glucose Lvl) 89 70-99 [place] 542561-04-21 08:45:36 Test Item Value Reference Range Interpretation Comments BUN (test code = BUN) 45 7-22 [place] [address]-04-21 08:45:36 Test Item Value Reference Range Interpretation Comments Creatinine Lvl (test code = Creatinine 1.65 0.50-1.40 Lvl) [place] 542561-04-21 08:45:36 Test Item Value Reference Range Interpretation Comments Sodium Lvl (test code = Sodium Lvl) 140 135-145 [place] [address]-04-21 08:45:36 Test Item Value Reference Range Interpretation Comments Potassium Lvl (test code = Potassium 4.1 3.5-5.1 Lvl) [address]04-21 08:45:36 Test Item Value Reference Range Interpretation Comments Chloride Lvl (test code = Chloride Lvl) 114 95-109 [place] 542561-04-21 08:45:36 Test Item Value Reference Range Interpretation Comments CO2 (test code = CO2) 20 24-32 [place] 542561-04-21 08:45:36 Test Item Value Reference Range Interpretation Comments Calcium Lvl (test code = Calcium Lvl) 8.4 8.5-10.5 [place] [address]-04-21 08:45:36 Test Item Value Reference Range Interpretation Comments Total Protein (test code = Total 6.6 6.4-8.4 Protein) [place] 542561-04-21 08:45:36 Test Item Value Reference Range Interpretation Comments Albumin Lvl (test code = Albumin Lvl) 2.6 3.5-5.0 [place] [address]-04-21 08:45:36 Test Item Value Reference Range Interpretation Comments ALANINE AMINOTRANSFERASE 217 See_Comment [A utomated message] (test code = ALANINE The sys tem which AMINOTRANSFERASE) generated this result transmitted ref erence range: <=65. Th e reference range was not used to int erpret this result as normal/abnormal . [place] 542561-04-21 08:45:36 Test Item Value Reference Range Interpretation Comments ASPARTATE TRANSAMINASE 153 See_Comment [Aut omated message] (test code = ASPARTATE The s ystem which TRANSAMINASE) generated this result transmitted ref erence range: <=37. Th e reference range was not used to interpr et this result as normal/abnormal . [place] 542561-04-21 08:45:36 Test Item Value Reference Range Interpretation Comments Alk Phos (test code = Alk Phos) 249 39-136 [place] [address]-04-21 08:45:36 Test Item Value Reference Range Interpretation Comments Bili Total (test code = Bili Total) 0.5 0.2-1.3 [place] 542561-04-21 08:45:36 Test Item Value Reference Range Interpretation Comments AGAP (test code = AGAP) 10.1 10.0-20.0 [place] [address]-04-21 08:45:36 Test Item Value Reference Range Interpretation Comments B/C Ratio (test code = B/C Ratio) 27 1 6-25 [place] [address]-04-21 08:45:36 Test Item Value Reference Range Interpretation Comments Globulin (test code = Globulin) 4.0 2.7-4.2 [place] 542561-04-21 08:45:36 Test Item Value Reference Range Interpretation Comments A/G Ratio (test code = A/G Ratio) 0.6 1 0.7-1.6 [place] [address]-04-21 08:45:36 Test Item Value Reference Range Interpretation Comments eGFR (test code = eGFR) 29 [place] 542561-04-21 08:45:36 Test Item Value Reference Range Interpretation Comments Glucose Lvl (test code = Glucose Lvl) 89 70-99 [place] 542561-04-21 08:45:36 Test Item Value Reference Range Interpretation Comments BUN (test code = BUN) 45 7-22 [place] 542561-04-21 08:45:36 Test Item Value Reference Range Interpretation Comments Creatinine Lvl (test code = Creatinine 1.65 0.50-1.40 Lvl) [place] 542561-04-21 08:45:36 Test Item Value Reference Range Interpretation Comments Sodium Lvl (test code = Sodium Lvl) 140 135-145 [place] 542561-04-21 08:45:36 Test Item Value Reference Range Interpretation Comments Potassium Lvl (test code = Potassium 4.1 3.5-5.1 Lvl) [place] 542561-04-21 08:45:36 Test Item Value Reference Range Interpretation Comments Chloride Lvl (test code = Chloride Lvl) 114 95-109 [place] 542561-04-21 08:45:36 Test Item Value Reference Range Interpretation Comments CO2 (test code = CO2) 20 24-32 [place] 542561-04-21 08:45:36 Test Item Value Reference Range Interpretation Comments Calcium Lvl (test code = Calcium Lvl) 8.4 8.5-10.5 [place] 542561-04-21 08:45:36 Test Item Value Reference Range Interpretation Comments Total Protein (test code = Total 6.6 6.4-8.4 Protein) [place] 542561-04-21 08:45:36 Test Item Value Reference Range Interpretation Comments Albumin Lvl (test code = Albumin Lvl) 2.6 3.5-5.0 [place] 542561-04-21 08:45:36 Test Item Value Reference Range Interpretation Comments ALANINE AMINOTRANSFERASE 217 See_Comment [A utomated message] (test code = ALANINE The sys tem which AMINOTRANSFERASE) generated this result transmitted ref erence range: <=65. Th e reference range was not used to int erpret this result as normal/abnormal . [place] 542561-04-21 08:45:36 Test Item Value Reference Range Interpretation Comments ASPARTATE TRANSAMINASE 153 See_Comment [Aut omated message] (test code = ASPARTATE The s ystem which TRANSAMINASE) generated this result transmitted ref erence range: <=37. Th e reference range was not used to interpr et this result as normal/abnormal . [place] 542561-04-21 08:45:36 Test Item Value Reference Range Interpretation Comments Alk Phos (test code = Alk Phos) 249 39-136 [place] 542561-04-21 08:45:36 Test Item Value Reference Range Interpretation Comments Bili Total (test code = Bili Total) 0.5 0.2-1.3 [place] 542561-04-21 08:45:36 Test Item Value Reference Range Interpretation Comments AGAP (test code = AGAP) 10.1 10.0-20.0 [address]04-21 08:45:36 Test Item Value Reference Range Interpretation Comments B/C Ratio (test code = B/C Ratio) 27 1 6-25 [place] [address]-04-21 08:45:36 Test Item Value Reference Range Interpretation Comments Globulin (test code = Globulin) 4.0 2.7-4.2 [place] 542561-04-21 08:45:36 Test Item Value Reference Range Interpretation Comments A/G Ratio (test code = A/G Ratio) 0.6 1 0.7-1.6 [place] [address]-04-21 08:45:36 Test Item Value Reference Range Interpretation Comments eGFR (test code = eGFR) 29 [place] [address]-04-21 08:45:36 Test Item Value Reference Range Interpretation Comments Glucose Lvl (test code = Glucose Lvl) 89 70-99 [place] 542561-04-21 08:45:36 Test Item Value Reference Range Interpretation Comments BUN (test code = BUN) 45 7-22 [place] 542561-04-21 08:45:36 Test Item Value Reference Range Interpretation Comments Creatinine Lvl (test code = Creatinine 1.65 0.50-1.40 Lvl) [place] 542561-04-21 08:45:36 Test Item Value Reference Range Interpretation Comments Sodium Lvl (test code = Sodium Lvl) 140 135-145 [place] 542561-04-21 08:45:36 Test Item Value Reference Range Interpretation Comments Potassium Lvl (test code = Potassium 4.1 3.5-5.1 Lvl) [place] 542561-04-21 08:45:36 Test Item Value Reference Range Interpretation Comments Chloride Lvl (test code = Chloride Lvl) 114 95-109 [place] 542561-04-21 08:45:36 Test Item Value Reference Range Interpretation Comments CO2 (test code = CO2) 20 24-32 [place] 542561-04-21 08:45:36 Test Item Value Reference Range Interpretation Comments Calcium Lvl (test code = Calcium Lvl) 8.4 8.5-10.5 [place] 542561-04-21 08:45:36 Test Item Value Reference Range Interpretation Comments Total Protein (test code = Total 6.6 6.4-8.4 Protein) [facility]2021-04-21 08:45:36 Test Item Value Reference Range Interpretation Comments Albumin Lvl (test code = Albumin Lvl) 2.6 3.5-5.0 [place] 542561-04-21 08:45:36 Test Item Value Reference Range Interpretation Comments ALANINE AMINOTRANSFERASE 217 See_Comment [A utomated message] (test code = ALANINE The sys tem which AMINOTRANSFERASE) generated this result transmitted ref erence range: <=65. Th e reference range was not used to int erpret this result as normal/abnormal . [place] 542561-04-21 08:45:36 Test Item Value Reference Range Interpretation Comments ASPARTATE TRANSAMINASE 153 See_Comment [Aut omated message] (test code = ASPARTATE The s ystem which TRANSAMINASE) generated this result transmitted ref erence range: <=37. Th e reference range was not used to interpr et this result as normal/abnormal . [facility]2021-04-21 08:45:36 Test Item Value Reference Range Interpretation Comments Alk Phos (test code = Alk Phos) 249 39-136 [place] 542561-04-21 08:45:36 Test Item Value Reference Range Interpretation Comments Bili Total (test code = Bili Total) 0.5 0.2-1.3 [place] 542561-04-21 08:45:36 Test Item Value Reference Range Interpretation Comments AGAP (test code = AGAP) 10.1 10.0-20.0 [place] 542561-04-21 08:45:36 Test Item Value Reference Range Interpretation Comments B/C Ratio (test code = B/C Ratio) 27 1 6-25 [place] 542561-04-21 08:45:36 Test Item Value Reference Range Interpretation Comments Globulin (test code = Globulin) 4.0 2.7-4.2 [place] 542561-04-21 08:45:36 Test Item Value Reference Range Interpretation Comments A/G Ratio (test code = A/G Ratio) 0.6 1 0.7-1.6 [place] 542561-04-21 08:45:36 Test Item Value Reference Range Interpretation Comments eGFR (test code = eGFR) 29 [place]2561-04-21 08:45:36 Test Item Value Reference Range Interpretation Comments Glucose Lvl (test code = Glucose Lvl) 89 70-99 [place] 542561-04-21 08:45:36 Test Item Value Reference Range Interpretation Comments BUN (test code = BUN) 45 7-22 [place] 542561-04-21 08:45:36 Test Item Value Reference Range Interpretation Comments Creatinine Lvl (test code = Creatinine 1.65 0.50-1.40 Lvl) [place] 542561-04-21 08:45:36 Test Item Value Reference Range Interpretation Comments Sodium Lvl (test code = Sodium Lvl) 140 135-145 [place] 542561-04-21 08:45:36 Test Item Value Reference Range Interpretation Comments Potassium Lvl (test code = Potassium 4.1 3.5-5.1 Lvl) [place] 542561-04-21 08:45:36 Test Item Value Reference Range Interpretation Comments Chloride Lvl (test code = Chloride Lvl) 114 95-109 [place] 542561-04-21 08:45:36 Test Item Value Reference Range Interpretation Comments CO2 (test code = CO2) 20 24-32 [place] 542561-04-21 08:45:36 Test Item Value Reference Range Interpretation Comments Calcium Lvl (test code = Calcium Lvl) 8.4 8.5-10.5 [place] 542561-04-21 08:45:36 Test Item Value Reference Range Interpretation Comments Total Protein (test code = Total 6.6 6.4-8.4 Protein) [place] 542561-04-21 08:45:36 Test Item Value Reference Range Interpretation Comments Albumin Lvl (test code = Albumin Lvl) 2.6 3.5-5.0 [place] 542561-04-21 08:45:36 Test Item Value Reference Range Interpretation Comments ALANINE AMINOTRANSFERASE 217 See_Comment [A utomated message] (test code = ALANINE The sys tem which AMINOTRANSFERASE) generated this result transmitted ref erence range: <=65. Th e reference range was not used to int erpret this result as normal/abnormal . [place]2561-04-21 08:45:36 Test Item Value Reference Range Interpretation Comments ASPARTATE TRANSAMINASE 153 See_Comment [Aut omated message] (test code = ASPARTATE The s ystem which TRANSAMINASE) generated this result transmitted ref erence range: <=37. Th e reference range was not used to interpr et this result as normal/abnormal . [facility]2021-04-21 08:45:36 Test Item Value Reference Range Interpretation Comments Alk Phos (test code = Alk Phos) 249 39-136 [place] 542561-04-21 08:45:36 Test Item Value Reference Range Interpretation Comments Bili Total (test code = Bili Total) 0.5 0.2-1.3 [place] 542561-04-21 08:45:36 Test Item Value Reference Range Interpretation Comments AGAP (test code = AGAP) 10.1 10.0-20.0 [place] 542561-04-21 08:45:36 Test Item Value Reference Range Interpretation Comments B/C Ratio (test code = B/C Ratio) 27 1 6-25 [place] 542561-04-21 08:45:36 Test Item Value Reference Range Interpretation Comments Globulin (test code = Globulin) 4.0 2.7-4.2 [place] 542561-04-21 08:45:36 Test Item Value Reference Range Interpretation Comments A/G Ratio (test code = A/G Ratio) 0.6 1 0.7-1.6 [place] 542561-04-21 08:45:36 Test Item Value Reference Range Interpretation Comments eGFR (test code = eGFR) 29 [place] 542561-04-21 08:45:36 Test Item Value Reference Range Interpretation Comments Glucose Lvl (test code = Glucose Lvl) 89 70-99 [place] 542561-04-21 08:45:36 Test Item Value Reference Range Interpretation Comments BUN (test code = BUN) 45 7-22 [place] 542561-04-21 08:45:36 Test Item Value Reference Range Interpretation Comments Creatinine Lvl (test code = Creatinine 1.65 0.50-1.40 Lvl) [facility]2021-04-21 08:45:36 Test Item Value Reference Range Interpretation Comments Sodium Lvl (test code = Sodium Lvl) 140 135-145 [place] 542561-04-21 08:45:36 Test Item Value Reference Range Interpretation Comments Potassium Lvl (test code = Potassium 4.1 3.5-5.1 Lvl) [place] 542561-04-21 08:45:36 Test Item Value Reference Range Interpretation Comments Chloride Lvl (test code = Chloride Lvl) 114 95-109 [place] 542561-04-21 08:45:36 Test Item Value Reference Range Interpretation Comments CO2 (test code = CO2) 20 24-32 [place]2561-04-21 08:45:36 Test Item Value Reference Range Interpretation Comments Calcium Lvl (test code = Calcium Lvl) 8.4 8.5-10.5 [place] [address]-04-21 08:45:36 Test Item Value Reference Range Interpretation Comments Total Protein (test code = Total 6.6 6.4-8.4 Protein) [place]2561-04-21 08:45:36 Test Item Value Reference Range Interpretation Comments Albumin Lvl (test code = Albumin Lvl) 2.6 3.5-5.0 [place] 542561-04-21 08:45:36 Test Item Value Reference Range Interpretation Comments ALANINE AMINOTRANSFERASE 217 See_Comment [A utomated message] (test code = ALANINE The sys tem which AMINOTRANSFERASE) generated this result transmitted ref erence range: <=65. Th e reference range was not used to int erpret this result as normal/abnormal . [place]2561-04-21 08:45:36 Test Item Value Reference Range Interpretation Comments ASPARTATE TRANSAMINASE 153 See_Comment [Aut omated message] (test code = ASPARTATE The s ystem which TRANSAMINASE) generated this result transmitted ref erence range: <=37. Th e reference range was not used to interpr et this result as normal/abnormal . [place]2561-04-21 08:45:36 Test Item Value Reference Range Interpretation Comments Alk Phos (test code = Alk Phos) 249 39-136 [place] 542561-04-21 08:45:36 Test Item Value Reference Range Interpretation Comments Bili Total (test code = Bili Total) 0.5 0.2-1.3 [place] [address]-04-21 08:45:36 Test Item Value Reference Range Interpretation Comments AGAP (test code = AGAP) 10.1 10.0-20.0 [place] 542561-04-21 08:45:36 Test Item Value Reference Range Interpretation Comments B/C Ratio (test code = B/C Ratio) 27 1 6-25 [place] 542561-04-21 08:45:36 Test Item Value Reference Range Interpretation Comments Globulin (test code = Globulin) 4.0 2.7-4.2 [place] 542561-04-21 08:45:36 Test Item Value Reference Range Interpretation Comments A/G Ratio (test code = A/G Ratio) 0.6 1 0.7-1.6 [place] [address]-04-21 08:45:36 Test Item Value Reference Range Interpretation Comments eGFR (test code = eGFR) 29 [place] 542561-04-21 08:45:36 Test Item Value Reference Range Interpretation Comments Glucose Lvl (test code = Glucose Lvl) 89 70-99 [place]2561-04-21 08:45:36 Test Item Value Reference Range Interpretation Comments BUN (test code = BUN) 45 7-22 [place]2561-04-21 08:45:36 Test Item Value Reference Range Interpretation Comments Creatinine Lvl (test code = Creatinine 1.65 0.50-1.40 Lvl) [facility]2021-04-21 08:45:36 Test Item Value Reference Range Interpretation Comments Sodium Lvl (test code = Sodium Lvl) 140 135-145 [place] 542561-04-21 08:45:36 Test Item Value Reference Range Interpretation Comments Potassium Lvl (test code = Potassium 4.1 3.5-5.1 Lvl) [place]2561-04-21 08:45:36 Test Item Value Reference Range Interpretation Comments Chloride Lvl (test code = Chloride Lvl) 114 95-109 [place] 542561-04-21 08:45:36 Test Item Value Reference Range Interpretation Comments CO2 (test code = CO2) 20 24-32 [place] 542561-04-21 08:45:36 Test Item Value Reference Range Interpretation Comments Calcium Lvl (test code = Calcium Lvl) 8.4 8.5-10.5 [address]04-21 08:45:36 Test Item Value Reference Range Interpretation Comments Total Protein (test code = Total 6.6 6.4-8.4 Protein) [place]2561-04-21 08:45:36 Test Item Value Reference Range Interpretation Comments Albumin Lvl (test code = Albumin Lvl) 2.6 3.5-5.0 [place] 542561-04-21 08:45:36 Test Item Value Reference Range Interpretation Comments ALANINE AMINOTRANSFERASE 217 See_Comment [A utomated message] (test code = ALANINE The sys tem which AMINOTRANSFERASE) generated this result transmitted ref erence range: <=65. Th e reference range was not used to int erpret this result as normal/abnormal . [place]2561-04-21 08:45:36 Test Item Value Reference Range Interpretation Comments ASPARTATE TRANSAMINASE 153 See_Comment [Aut omated message] (test code = ASPARTATE The s ystem which TRANSAMINASE) generated this result transmitted ref erence range: <=37. Th e reference range was not used to interpr et this result as normal/abnormal . [place]2561-04-21 08:45:36 Test Item Value Reference Range Interpretation Comments Alk Phos (test code = Alk Phos) 249 39-136 [place] 542561-04-21 08:45:36 Test Item Value Reference Range Interpretation Comments Bili Total (test code = Bili Total) 0.5 0.2-1.3 [place]2561-04-21 08:45:36 Test Item Value Reference Range Interpretation Comments AGAP (test code = AGAP) 10.1 10.0-20.0 [place] 542561-04-21 08:45:36 Test Item Value Reference Range Interpretation Comments B/C Ratio (test code = B/C Ratio) 27 1 6-25 [place] [address]-04-21 08:45:36 Test Item Value Reference Range Interpretation Comments Globulin (test code = Globulin) 4.0 2.7-4.2 [place] 542561-04-21 08:45:36 Test Item Value Reference Range Interpretation Comments A/G Ratio (test code = A/G Ratio) 0.6 1 0.7-1.[address]04-21 08:45:36 Test Item Value Reference Range Interpretation Comments eGFR (test code = eGFR) 29 [place] [address]-04-21 08:45:36 Test Item Value Reference Range Interpretation Comments Glucose Lvl (test code = Glucose Lvl) 89 70-99 [place] [address]-04-21 08:45:36 Test Item Value Reference Range Interpretation Comments BUN (test code = BUN) 45 7-22 [place] [address]-04-21 08:45:36 Test Item Value Reference Range Interpretation Comments Creatinine Lvl (test code = Creatinine 1.65 0.50-1.40 Lvl) [address]04-21 08:45:36 Test Item Value Reference Range Interpretation Comments Sodium Lvl (test code = Sodium Lvl) 140 135-145 [place]2561-04-21 08:45:36 Test Item Value Reference Range Interpretation Comments Potassium Lvl (test code = Potassium 4.1 3.5-5.1 Lvl) [place]2561-04-21 08:45:36 Test Item Value Reference Range Interpretation Comments Chloride Lvl (test code = Chloride Lvl) 114 95-109 [place] [address]-04-21 08:45:36 Test Item Value Reference Range Interpretation Comments CO2 (test code = CO2) 20 24-32 [place] [id number] 08:45:36 Test Item Value Reference Range Interpretation Comments Calcium Lvl (test code = Calcium Lvl) 8.4 8.5-10.5 [place] 542561-04-21 08:45:36 Test Item Value Reference Range Interpretation Comments Total Protein (test code = Total 6.6 6.4-8.4 Protein) [place] 542561-04-21 08:45:36 Test Item Value Reference Range Interpretation Comments Albumin Lvl (test code = Albumin Lvl) 2.6 3.5-5.0 [place] [address]-04-21 08:45:36 Test Item Value Reference Range Interpretation Comments ALANINE AMINOTRANSFERASE 217 See_Comment [A utomated message] (test code = ALANINE The sys tem which AMINOTRANSFERASE) generated this result transmitted ref erence range: <=65. Th e reference range was not used to int erpret this result as normal/abnormal . [place] 542561-04-21 08:45:36 Test Item Value Reference Range Interpretation Comments ASPARTATE TRANSAMINASE 153 See_Comment [Aut omated message] (test code = ASPARTATE The s ystem which TRANSAMINASE) generated this result transmitted ref erence range: <=37. Th e reference range was not used to interpr et this result as normal/abnormal . [place] 542561-04-21 08:45:36 Test Item Value Reference Range Interpretation Comments Alk Phos (test code = Alk Phos) 249 39-136 [place] 542561-04-21 08:45:36 Test Item Value Reference Range Interpretation Comments Bili Total (test code = Bili Total) 0.5 0.2-1.3 [place] [address]-04-21 08:45:36 Test Item Value Reference Range Interpretation Comments AGAP (test code = AGAP) 10.1 10.0-20.0 [place] 542561-04-21 08:45:36 Test Item Value Reference Range Interpretation Comments B/C Ratio (test code = B/C Ratio) 27 1 6-25 [place] 542561-04-21 08:45:36 Test Item Value Reference Range Interpretation Comments Globulin (test code = Globulin) 4.0 2.7-4.2 [place] 542561-04-21 08:45:36 Test Item Value Reference Range Interpretation Comments A/G Ratio (test code = A/G Ratio) 0.6 1 0.7-1.6 [place] 542561-04-21 08:45:36 Test Item Value Reference Range Interpretation Comments eGFR (test code = eGFR) 29 [place] 542561-04-21 08:45:36 Test Item Value Reference Range Interpretation Comments Glucose Lvl (test code = Glucose Lvl) 89 70-99 [place] 542561-04-21 08:45:36 Test Item Value Reference Range Interpretation Comments BUN (test code = BUN) 45 7-22 [place] 542561-04-21 08:45:36 Test Item Value Reference Range Interpretation Comments Creatinine Lvl (test code = Creatinine 1.65 0.50-1.40 Lvl) [place] 542561-04-21 08:45:36 Test Item Value Reference Range Interpretation Comments Sodium Lvl (test code = Sodium Lvl) 140 135-145 [place] 542561-04-21 08:45:36 Test Item Value Reference Range Interpretation Comments Potassium Lvl (test code = Potassium 4.1 3.5-5.1 Lvl) [place] 542561-04-21 08:45:36 Test Item Value Reference Range Interpretation Comments Chloride Lvl (test code = Chloride Lvl) 114 95-109 [place] 542561-04-21 08:45:36 Test Item Value Reference Range Interpretation Comments CO2 (test code = CO2) 20 24-32 [place] 542561-04-21 08:45:36 Test Item Value Reference Range Interpretation Comments Calcium Lvl (test code = Calcium Lvl) 8.4 8.5-10.5 [place] 542561-04-21 08:45:36 Test Item Value Reference Range Interpretation Comments Total Protein (test code = Total 6.6 6.4-8.4 Protein) [place] 542561-04-21 08:45:36 Test Item Value Reference Range Interpretation Comments Albumin Lvl (test code = Albumin Lvl) 2.6 3.5-5.0 [place] 542561-04-21 08:45:36 Test Item Value Reference Range Interpretation Comments ALANINE AMINOTRANSFERASE 217 See_Comment [A utomated message] (test code = ALANINE The sys tem which AMINOTRANSFERASE) generated this result transmitted ref erence range: <=65. Th e reference range was not used to int erpret this result as normal/abnormal . [place] 542561-04-21 08:45:36 Test Item Value Reference Range Interpretation Comments ASPARTATE TRANSAMINASE 153 See_Comment [Aut omated message] (test code = ASPARTATE The s ystem which TRANSAMINASE) generated this result transmitted ref erence range: <=37. Th e reference range was not used to interpr et this result as normal/abnormal . [place] 542561-04-21 08:45:36 Test Item Value Reference Range Interpretation Comments Alk Phos (test code = Alk Phos) 249 39-136 [place] 542561-04-21 08:45:36 Test Item Value Reference Range Interpretation Comments Bili Total (test code = Bili Total) 0.5 0.2-1.3 [place] [address]-04-21 08:45:36 Test Item Value Reference Range Interpretation Comments AGAP (test code = AGAP) 10.1 10.0-20.0 [place] 542561-04-21 08:45:36 Test Item Value Reference Range Interpretation Comments B/C Ratio (test code = B/C Ratio) 27 1 6-25 [place] [address]-04-21 08:45:36 Test Item Value Reference Range Interpretation Comments Globulin (test code = Globulin) 4.0 2.7-4.2 [place] 542561-04-21 08:45:36 Test Item Value Reference Range Interpretation Comments A/G Ratio (test code = A/G Ratio) 0.6 1 0.7-1.6 [place] [address]-04-21 08:45:36 Test Item Value Reference Range Interpretation Comments eGFR (test code = eGFR) 29 [place] 542561-04-21 08:45:36 Test Item Value Reference Range Interpretation Comments Glucose Lvl (test code = Glucose Lvl) 89 70-99 [place] 542561-04-21 08:45:36 Test Item Value Reference Range Interpretation Comments BUN (test code = BUN) 45 7-22 [place] 542561-04-21 08:45:36 Test Item Value Reference Range Interpretation Comments Creatinine Lvl (test code = Creatinine 1.65 0.50-1.40 Lvl) [place] 542561-04-21 08:45:36 Test Item Value Reference Range Interpretation Comments Sodium Lvl (test code = Sodium Lvl) 140 135-145 [place] 542561-04-21 08:45:36 Test Item Value Reference Range Interpretation Comments Potassium Lvl (test code = Potassium 4.1 3.5-5.1 Lvl) [place] 542561-04-21 08:45:36 Test Item Value Reference Range Interpretation Comments Chloride Lvl (test code = Chloride Lvl) 114 95-109 [place] 542561-04-21 08:45:36 Test Item Value Reference Range Interpretation Comments CO2 (test code = CO2) 20 24-32 [place] 542561-04-21 08:45:36 Test Item Value Reference Range Interpretation Comments Calcium Lvl (test code = Calcium Lvl) 8.4 8.5-10.5 [place] 542561-04-21 08:45:36 Test Item Value Reference Range Interpretation Comments Total Protein (test code = Total 6.6 6.4-8.4 Protein) [place] 542561-04-21 08:45:36 Test Item Value Reference Range Interpretation Comments Albumin Lvl (test code = Albumin Lvl) 2.6 3.5-5.0 [place] 542561-04-21 08:45:36 Test Item Value Reference Range Interpretation Comments ALANINE AMINOTRANSFERASE 217 See_Comment [A utomated message] (test code = ALANINE The sys tem which AMINOTRANSFERASE) generated this result transmitted ref erence range: <=65. Th e reference range was not used to int erpret this result as normal/abnormal . [place] 542561-04-21 08:45:36 Test Item Value Reference Range Interpretation Comments ASPARTATE TRANSAMINASE 153 See_Comment [Aut omated message] (test code = ASPARTATE The s ystem which TRANSAMINASE) generated this result transmitted ref erence range: <=37. Th e reference range was not used to interpr et this result as normal/abnormal . [place] 542561-04-21 08:45:36 Test Item Value Reference Range Interpretation Comments Alk Phos (test code = Alk Phos) 249 39-136 [place] 542561-04-21 08:45:36 Test Item Value Reference Range Interpretation Comments Bili Total (test code = Bili Total) 0.5 0.2-1.3 [place] [address]-04-21 08:45:36 Test Item Value Reference Range Interpretation Comments AGAP (test code = AGAP) 10.1 10.0-20.0 [place] [address]-04-21 08:45:36 Test Item Value Reference Range Interpretation Comments B/C Ratio (test code = B/C Ratio) 27 1 6-25 [place] 542561-04-21 08:45:36 Test Item Value Reference Range Interpretation Comments Globulin (test code = Globulin) 4.0 2.7-4.2 [place] 542561-04-21 08:45:36 Test Item Value Reference Range Interpretation Comments A/G Ratio (test code = A/G Ratio) 0.6 1 0.7-1.6 [place] [address]-04-21 08:45:36 Test Item Value Reference Range Interpretation Comments eGFR (test code = eGFR) 29 [place] [address]-04-21 08:45:36 Test Item Value Reference Range Interpretation Comments Glucose Lvl (test code = Glucose Lvl) 89 70-99 [place] 542561-04-21 08:45:36 Test Item Value Reference Range Interpretation Comments BUN (test code = BUN) 45 7-22 [place] [address]-04-21 08:45:36 Test Item Value Reference Range Interpretation Comments Creatinine Lvl (test code = Creatinine 1.65 0.50-1.40 Lvl) [address]04-21 08:45:36 Test Item Value Reference Range Interpretation Comments Sodium Lvl (test code = Sodium Lvl) 140 135-145 [place] [address]-04-21 08:45:36 Test Item Value Reference Range Interpretation Comments Potassium Lvl (test code = Potassium 4.1 3.5-5.1 Lvl) [place] 542561-04-21 08:45:36 Test Item Value Reference Range Interpretation Comments Chloride Lvl (test code = Chloride Lvl) 114 95-109 [place] [address]-04-21 08:45:36 Test Item Value Reference Range Interpretation Comments CO2 (test code = CO2) 20 24-32 [place] [address]-04-21 08:45:36 Test Item Value Reference Range Interpretation Comments Calcium Lvl (test code = Calcium Lvl) 8.4 8.5-10.5 [place] 542561-04-21 08:45:36 Test Item Value Reference Range Interpretation Comments Total Protein (test code = Total 6.6 6.4-8.4 Protein) [place] 542561-04-21 08:45:36 Test Item Value Reference Range Interpretation Comments Albumin Lvl (test code = Albumin Lvl) 2.6 3.5-5.0 [place] 542561-04-21 08:45:36 Test Item Value Reference Range Interpretation Comments ALANINE AMINOTRANSFERASE 217 See_Comment [A utomated message] (test code = ALANINE The sys tem which AMINOTRANSFERASE) generated this result transmitted ref erence range: <=65. Th e reference range was not used to int erpret this result as normal/abnormal . [place] 542561-04-21 08:45:36 Test Item Value Reference Range Interpretation Comments ASPARTATE TRANSAMINASE 153 See_Comment [Aut omated message] (test code = ASPARTATE The s ystem which TRANSAMINASE) generated this result transmitted ref erence range: <=37. Th e reference range was not used to interpr et this result as normal/abnormal . [place] 542561-04-21 08:45:36 Test Item Value Reference Range Interpretation Comments Alk Phos (test code = Alk Phos) 249 39-136 [place] 542561-04-21 08:45:36 Test Item Value Reference Range Interpretation Comments Bili Total (test code = Bili Total) 0.5 0.2-1.3 [place] 542561-04-21 08:45:36 Test Item Value Reference Range Interpretation Comments AGAP (test code = AGAP) 10.1 10.0-20.0 [place] 542561-04-21 08:45:36 Test Item Value Reference Range Interpretation Comments B/C Ratio (test code = B/C Ratio) 27 1 6-25 [place] [address]-04-21 08:45:36 Test Item Value Reference Range Interpretation Comments Globulin (test code = Globulin) 4.0 2.7-4.2 [place] 542561-04-21 08:45:36 Test Item Value Reference Range Interpretation Comments A/G Ratio (test code = A/G Ratio) 0.6 1 0.7-1.6 [place] 542561-04-21 08:45:36 Test Item Value Reference Range Interpretation Comments eGFR (test code = eGFR) 29 [place] 519361-04-20 21:39:00 Test Item Value Reference Range Interpretation Comments PTT (test code = PTT) 43.0 s 22.9-35.8 [place] 519361-04-20 21:39:00 Test Item Value Reference Range Interpretation Comments Segs (test code = Segs) 84.4 45.0-75.0 [place] 519361-04-20 21:39:00 Test Item Value Reference Range Interpretation Comments Lymphocytes (test code = Lymphocytes) 8.4 20.0-40.0 [facility] Reso[id number] 21:39:00 Test Item Value Reference Range Interpretation Comments Monocytes (test code = Monocytes) 6.5 2.0-12.0 [facility] ServicesAjwvuycBQZWCBBKEQ0209-41-91 21:39:00 Test Item Value Reference Range Interpretation Comments Eosinophils (test code = 0.3 See_Comment [A utomated message] The Eosinophils) system which ge nerated this result tra nsmitted reference range : <=4.0. The reference r patria was not used to int erpret this result as normal/abnormal . [facility] ResourcesWnvwujfWTBMQLXKAM3411-15-64 21:39:00 Test Item Value Reference Range Interpretation Comments Basophils (test code = 0.4 See_Comment [Aut omated message] The Basophils) system which ge nerated this result tra nsmitted reference range : <=1.0. The reference r patria was not used to int erpret this result as normal/abnormal . [facility] ResourcesOagffsuBXEMRHSVCX3212-40-87 21:39:00 Test Item Value Reference Range Interpretation Comments Neutrophils # (test code = Neutrophils 5.1 1.5-8.1 #) [facility] ResourcesFxbsyjbVCXALFCRQN4511-75-82 21:39:00 Test Item Value Reference Range Interpretation Comments Lymphocytes # (test code = Lymphocytes 0.5 1.0-5.5 #) [facility]XPQ2400[facility] 21:39:00 Test Item Value Reference Range Interpretation Comments Monocytes # (test code 0.4 See_Comment [Aut omated message] The = Monocytes #) system which generated this result tra nsmitted reference range : <=0.8. The reference r patria was not used to int erpret this result as normal/abnormal . [facility] ResourcesIswjupzZWFFGRKYTQ8521-31-17 21:39:00 Test Item Value Reference Range Interpretation Comments Macrocyte (test code = 1+ *ABN*(02/28/21 Macrocyte) 4:39 PM) [facility] Resources[facility]2021-04-20 21:39:00 Test Item Value Reference Range Interpretation Comments Total CK (test code = Total CK) 63 12-191 [facility]2021-04-20 21:39:00 Test Item Value Reference Range Interpretation Comments Troponin-I (test code no gt See_Comment [Auto mated message] The = Troponin-I) system which g enerated this result transmit rosendo reference range : <=0.40. The reference r patria was not used to interpr et this result as josi l/abnormal. [facility]2021-04-20 21:39:00 Test Item Value Reference Range Interpretation Comments Glucose Lvl (test code = Glucose Lvl) 110 70-99 [facility]2021-04-20 21:39:00 Test Item Value Reference Range Interpretation Comments BUN (test code = BUN) 52 7-22 [facility]2021-04-20 21:39:00 Test Item Value Reference Range Interpretation Comments Creatinine Lvl (test code = Creatinine 1.77 0.50-1.40 Lvl) [facility]2021-04-20 21:39:00 Test Item Value Reference Range Interpretation Comments Sodium Lvl (test code = Sodium Lvl) 139 135-145 [facility]2021-04-20 21:39:00 Test Item Value Reference Range Interpretation Comments Potassium Lvl (test code = Potassium 4.5 3.5-5.1 Lvl) [facility]2021-04-20 21:39:00 Test Item Value Reference Range Interpretation Comments Chloride Lvl (test code = Chloride Lvl) 114 95-109 [facility]2021-04-20 21:39:00 Test Item Value Reference Range Interpretation Comments CO2 (test code = CO2) 16 24-32 [facility]2021-04-20 21:39:00 Test Item Value Reference Range Interpretation Comments Calcium Lvl (test code = Calcium Lvl) 8.6 8.5-10.5 [facility]2021-04-20 21:39:00 Test Item Value Reference Range Interpretation Comments AGAP (test code = AGAP) 13.5 10.0-20.0 [facility]2021-04-20 21:39:00 Test Item Value Reference Range Interpretation Comments eGFR (test code = eGFR) 27 [facility]2021-04-20 21:39:00 Test Item Value Reference Range Interpretation Comments Total Protein (test code = Total 7.3 6.4-8.4 Protein) [facility]2021-04-20 21:39:00 Test Item Value Reference Range Interpretation Comments Albumin Lvl (test code = Albumin Lvl) 2.9 3.5-5.0 [facility]2021-04-20 21:39:00 Test Item Value Reference Range Interpretation Comments ALANINE AMINOTRANSFERASE 300 See_Comment [A utomated message] (test code = ALANINE The sys tem which AMINOTRANSFERASE) generated this result transmitted ref erence range: <=65. Th e reference range was not used to int erpret this result as normal/abnormal . [facility] [id number] 21:39:00 Test Item Value Reference Range Interpretation Comments ASPARTATE TRANSAMINASE 251 See_Comment [Aut omated message] (test code = ASPARTATE The s ystem which TRANSAMINASE) generated this result transmitted ref erence range: <=37. Th e reference range was not used to interpr et this result as normal/abnormal . [facility]About[facility] [id number] 21:39:00 Test Item Value Reference Range Interpretation Comments Alk Phos (test code = Alk Phos) 301 39-136 [facility] ResourcesAbout[facility] [id number] 21:39:00 Test Item Value Reference Range Interpretation Comments Bili Total (test code = Bili Total) 0.5 0.2-1.3 [facility] [id number] 21:39:00 Test Item Value Reference Range Interpretation Comments Bili Direct (test code 0.2 See_Comment [Aut omated message] The = Bili Direct) system which generated this result tra nsmitted reference range : <=0.3. The reference r patria was not used to int erpret this result as josi l/abnormal. [facility] [id number] 21:39:00 Test Item Value Reference Range Interpretation Comments Bili Indirect (test 0.3 See_Comment [Automa rosendo message] The code = Bili Indirect) system which generated this result tra nsmitted reference range : <=1.0. The reference r patria was not used to int erpret this result as normal/abnormal . [facility] [id number] 21:39:00 Test Item Value Reference Range Interpretation Comments Globulin (test code = Globulin) 4.4 2.7-4.2 [facility] [id number] 21:39:00 Test Item Value Reference Range Interpretation Comments A/G Ratio (test code = A/G Ratio) 0.7 1 0.7-1.6 [facility]2021-04-20 21:39:00 Test Item Value Reference Range Interpretation Comments Lactic Acid Lvl (test code = Lactic 1.7 0.5-2.2 Acid Lvl) [facility]UPKWJTTD1686[facility] 21:39:00 Test Item Value Reference Range Interpretation Comments WBC X 10x3 (test code = WBC X 10x3) 6.1 3.7-10.4 [facility]QxqxqdqWQPVTKMRKE6503-06-09 21:39:00 Test Item Value Reference Range Interpretation Comments RBC X 10x6 (test code = RBC X 10x6) 3.88 4.20-5.40 [facility] CenterLmkasllUQXKQOWQPZ5446-39-16 21:39:00 Test Item Value Reference Range Interpretation Comments Hgb (test code = Hgb) 13.0 12.0-16.0 [facility] CenterUoehkspADCLBKSBDV4544-09-40 21:39:00 Test Item Value Reference Range Interpretation Comments Hct (test code = Hct) 40.9 36.0-48.0 [facility] CenterCinquzhYDZJEATVSY6246-11-90 21:39:00 Test Item Value Reference Range Interpretation Comments MCV (test code = MCV) 105.5 80.0-98.0 [facility] CenterBljlbqxCRRWBORHJZ0076-42-31 21:39:00 Test Item Value Reference Range Interpretation Comments MCH (test code = MCH) 33.6 pg 27.0-31.0 [facility] CenterByacvpsBETKIYTJXN5834-81-84 21:39:00 Test Item Value Reference Range Interpretation Comments MCHC (test code = MCHC) 31.8 32.0-36.0 [facility] CenterOdxtlfgPTTRIJKCWG6311-43-56 21:39:00 Test Item Value Reference Range Interpretation Comments RDW (test code = RDW) 15.6 11.5-14.5 [facility] CenterJctpktuANLUNQYDLZ1646-01-25 21:39:00 Test Item Value Reference Range Interpretation Comments Platelet (test code = Platelet) 217 133-450 [facility] CenterBxxdhmvRBGTJYNZVT6347-25-93 21:39:00 Test Item Value Reference Range Interpretation Comments MPV (test code = MPV) 7.3 7.4-10.4 [facility] CenterQobvvnfUKKBFHHKAR6611-26-07 21:39:00 Test Item Value Reference Range Interpretation Comments PT (test code = PT) 17.4 s 12.0-14.7 [facility] CenterZdkjqhfJTKLNKCVVU9261-34-85 21:39:00 Test Item Value Reference Range Interpretation Comments INR (test code = INR) 1.46 1 0.85-1.17 [facility] CenterMuewnghVEIGBHVZNO2264-82-74 21:39:00 Test Item Value Reference Range Interpretation Comments PTT (test code = PTT) 43.0 s 22.9-35.8 [place] 519361-04-20 21:39:00 Test Item Value Reference Range Interpretation Comments Segs (test code = Segs) 84.4 45.0-75.0 [place] 519361-04-20 21:39:00 Test Item Value Reference Range Interpretation Comments Lymphocytes (test code = Lymphocytes) 8.4 20.0-40.0 [facility] CenterSnwktmeWSICUUOMHL0229-46-22 21:39:00 Test Item Value Reference Range Interpretation Comments Monocytes (test code = Monocytes) 6.5 2.0-12.0 [facility] CenterQanlsvzZOQAAPJNVF2770-28-70 21:39:00 Test Item Value Reference Range Interpretation Comments Eosinophils (test code = 0.3 See_Comment [A utomated message] The Eosinophils) system which ge nerated this result tra nsmitted reference range : <=4.0. The reference r patria was not used to int erpret this result as normal/abnormal . [facility] CenterDmxkzwdGNXBJMDDMH4314-57-40 21:39:00 Test Item Value Reference Range Interpretation Comments Basophils (test code = 0.4 See_Comment [Aut omated message] The Basophils) system which ge nerated this result tra nsmitted reference range : <=1.0. The reference r patria was not used to int erpret this result as normal/abnormal . [facility] CenterWonamquGTBFCAHZFO4106-12-77 21:39:00 Test Item Value Reference Range Interpretation Comments Neutrophils # (test code = Neutrophils 5.1 1.5-8.1 #) [place] 519361-04-20 21:39:00 Test Item Value Reference Range Interpretation Comments Lymphocytes # (test code = Lymphocytes 0.5 1.0-5.5 #) [place] 519361-04-20 21:39:00 Test Item Value Reference Range Interpretation Comments Monocytes # (test code 0.4 See_Comment [Aut omated message] The = Monocytes #) system which generated this result tra nsmitted reference range : <=0.8. The reference r patria was not used to int erpret this result as normal/abnormal . [facility] ServicesTzodlkdCOJASTCPFN4260-17-06 21:39:00 Test Item Value Reference Range Interpretation Comments Macrocyte (test code = 1+ *ABN*(02/28/21 Macrocyte) 4:39 PM) [facility] [id number] 21:39:00 Test Item Value Reference Range Interpretation Comments Total CK (test code = Total CK) 63 12-191 [facility] [id number] 21:39:00 Test Item Value Reference Range Interpretation Comments Troponin-I (test code no gt See_Comment [Auto mated message] The = Troponin-I) system which g enerated this result transmit rosendo reference range : <=0.40. The reference r patria was not used to interpr et this result as josi l/abnormal. [facility] [id number] 21:39:00 Test Item Value Reference Range Interpretation Comments Glucose Lvl (test code = Glucose Lvl) 110 70-99 [facility] [id number] 21:39:00 Test Item Value Reference Range Interpretation Comments BUN (test code = BUN) 52 7-22 [facility] [id number] 21:39:00 Test Item Value Reference Range Interpretation Comments Creatinine Lvl (test code = Creatinine 1.77 0.50-1.40 Lvl) [facility] [id number] 21:39:00 Test Item Value Reference Range Interpretation Comments Sodium Lvl (test code = Sodium Lvl) 139 135-145 [facility] [id number] 21:39:00 Test Item Value Reference Range Interpretation Comments Potassium Lvl (test code = Potassium 4.5 3.5-5.1 Lvl) [facility] [id number] 21:39:00 Test Item Value Reference Range Interpretation Comments Chloride Lvl (test code = Chloride Lvl) 114 95-109 [email or web address] [id number] 21:39:00 Test Item Value Reference Range Interpretation Comments CO2 (test code = CO2) 16 24-32 [facility]2021-04-20 21:39:00 Test Item Value Reference Range Interpretation Comments Calcium Lvl (test code = Calcium Lvl) 8.6 8.5-10.5 [place] 542561-04-20 21:39:00 Test Item Value Reference Range Interpretation Comments AGAP (test code = AGAP) 13.5 10.0-20.0 [place] 542561-04-20 21:39:00 Test Item Value Reference Range Interpretation Comments eGFR (test code = eGFR) 27 [place] 542561-04-20 21:39:00 Test Item Value Reference Range Interpretation Comments Total Protein (test code = Total 7.3 6.4-8.4 Protein) [facility]2021-04-20 21:39:00 Test Item Value Reference Range Interpretation Comments Albumin Lvl (test code = Albumin Lvl) 2.9 3.5-5.0 [place] 542561-04-20 21:39:00 Test Item Value Reference Range Interpretation Comments ALANINE AMINOTRANSFERASE 300 See_Comment [A utomated message] (test code = ALANINE The sys tem which AMINOTRANSFERASE) generated this result transmitted ref erence range: <=65. Th e reference range was not used to int erpret this result as normal/abnormal . [place] 542561-04-20 21:39:00 Test Item Value Reference Range Interpretation Comments ASPARTATE TRANSAMINASE 251 See_Comment [Aut omated message] (test code = ASPARTATE The s ystem which TRANSAMINASE) generated this result transmitted ref erence range: <=37. Th e reference range was not used to interpr et this result as normal/abnormal . [facility]2021-04-20 21:39:00 Test Item Value Reference Range Interpretation Comments Alk Phos (test code = Alk Phos) 301 39-136 [place] 542561-04-20 21:39:00 Test Item Value Reference Range Interpretation Comments Bili Total (test code = Bili Total) 0.5 0.2-1.3 [place] 542561-04-20 21:39:00 Test Item Value Reference Range Interpretation Comments Bili Direct (test code 0.2 See_Comment [Aut omated message] The = Bili Direct) system which generated this result tra nsmitted reference range : <=0.3. The reference r patria was not used to int erpret this result as josi l/abnormal. [facility] [id number] 21:39:00 Test Item Value Reference Range Interpretation Comments Bili Indirect (test 0.3 See_Comment [Automa rosendo message] The code = Bili Indirect) system which generated this result tra nsmitted reference range : <=1.0. The reference r patria was not used to int erpret this result as normal/abnormal . [facility]2021-04-20 21:39:00 Test Item Value Reference Range Interpretation Comments Globulin (test code = Globulin) 4.4 2.7-4.2 [place] 542561-04-20 21:39:00 Test Item Value Reference Range Interpretation Comments A/G Ratio (test code = A/G Ratio) 0.7 1 0.7-1.6 [place] 542561-04-20 21:39:00 Test Item Value Reference Range Interpretation Comments Lactic Acid Lvl (test code = Lactic 1.7 0.5-2.2 Acid Lvl) [facility]uubstjTIIEXGJLCJ3483-20-69 21:39:00 Test Item Value Reference Range Interpretation Comments WBC X 10x3 (test code = WBC X 10x3) 6.1 3.7-10.4 [facility] CenterQaxsdqaODTXUVKRSK6765-34-41 21:39:00 Test Item Value Reference Range Interpretation Comments RBC X 10x6 (test code = RBC X 10x6) 3.88 4.20-5.40 [place] 519361-04-20 21:39:00 Test Item Value Reference Range Interpretation Comments Hgb (test code = Hgb) 13.0 12.0-16.0 [place] 519361-04-20 21:39:00 Test Item Value Reference Range Interpretation Comments Hct (test code = Hct) 40.9 36.0-48.0 [place] 519361-04-20 21:39:00 Test Item Value Reference Range Interpretation Comments MCV (test code = MCV) 105.5 80.0-98.0 [place] 519361-04-20 21:39:00 Test Item Value Reference Range Interpretation Comments MCH (test code = MCH) 33.6 pg 27.0-31.0 [facility] CenterHuujtlbLMCJGWZQQG2724-69-50 21:39:00 Test Item Value Reference Range Interpretation Comments MCHC (test code = MCHC) 31.8 32.0-36.0 [facility] CenterZkxmwkkHMNRRREZIG4920-55-76 21:39:00 Test Item Value Reference Range Interpretation Comments RDW (test code = RDW) 15.6 11.5-14.5 [facility] CenterHeegcshAVCPANQDCN6573-52-92 21:39:00 Test Item Value Reference Range Interpretation Comments Platelet (test code = Platelet) 217 133-450 [facility] CenterEwrbcuuZCYWQUNLCF8043-12-69 21:39:00 Test Item Value Reference Range Interpretation Comments MPV (test code = MPV) 7.3 7.4-10.4 [facility] CenterSrgtkbzSNOQPUQUFJ8755-25-83 21:39:00 Test Item Value Reference Range Interpretation Comments PT (test code = PT) 17.4 s 12.0-14.7 [facility] CenterWiewchzWIBNNOQABL1178-61-42 21:39:00 Test Item Value Reference Range Interpretation Comments INR (test code = INR) 1.46 1 0.85-1.17 [facility] CenterXjxokgxEJEWVOZMUX2045-76-66 21:39:00 Test Item Value Reference Range Interpretation Comments PTT (test code = PTT) 43.0 s 22.9-35.8 [facility] CenterPtgxoqqRCEMYVALRJ2292-67-49 21:39:00 Test Item Value Reference Range Interpretation Comments Segs (test code = Segs) 84.4 45.0-75.0 [facility] CenterFigokbnEQWSOHJHRB2568-37-15 21:39:00 Test Item Value Reference Range Interpretation Comments Lymphocytes (test code = Lymphocytes) 8.4 20.0-40.0 [facility] CenterOhfbozkPVYPQAZUZS8566-89-67 21:39:00 Test Item Value Reference Range Interpretation Comments Monocytes (test code = Monocytes) 6.5 2.0-12.0 [facility] CenterIxjvlloOPIZBWEZQO2703-19-07 21:39:00 Test Item Value Reference Range Interpretation Comments Eosinophils (test code = 0.3 See_Comment [A utomated message] The Eosinophils) system which ge nerated this result tra nsmitted reference range : <=4.0. The reference r patria was not used to int erpret this result as normal/abnormal . [facility] CenterOgrtxaqBINUSRPGWS0354-67-52 21:39:00 Test Item Value Reference Range Interpretation Comments Basophils (test code = 0.4 See_Comment [Aut omated message] The Basophils) system which ge nerated this result tra nsmitted reference range : <=1.0. The reference r patria was not used to int erpret this result as normal/abnormal . [facility] JvfxicvRCTJPJPCPC0423-14-75 21:39:00 Test Item Value Reference Range Interpretation Comments Neutrophils # (test code = Neutrophils 5.1 1.5-8.1 #) [facility] ResourcesVvpsytzWFAKDQOBQE4773-22-10 21:39:00 Test Item Value Reference Range Interpretation Comments Lymphocytes # (test code = Lymphocytes 0.5 1.0-5.5 #) [facility] ResourcesJjnvdagZUMXNOEHHR7310-87-37 21:39:00 Test Item Value Reference Range Interpretation Comments Monocytes # (test code 0.4 See_Comment [Aut omated message] The = Monocytes #) system which generated this result tra nsmitted reference range : <=0.8. The reference r patria was not used to int erpret this result as normal/abnormal . [facility] MawejtjGOICGAMPES4310-54-78 21:39:00 Test Item Value Reference Range Interpretation Comments Macrocyte (test code = 1+ *ABN*(02/28/21 Macrocyte) 4:39 PM) [facility] [employer]2021-04-20 21:39:00 Test Item Value Reference Range Interpretation Comments Total CK (test code = Total CK) 63 12-191 [facility] [employer]2021-04-20 21:39:00 Test Item Value Reference Range Interpretation Comments Troponin-I (test code no gt See_Comment [Auto mated message] The = Troponin-I) system which g enerated this result transmit rosendo reference range : <=0.40. The reference r patria was not used to interpr et this result as josi l/abnormal. [facility] [email or web address] 21:39:00 Test Item Value Reference Range Interpretation Comments Glucose Lvl (test code = Glucose Lvl) 110 70-99 [facility] [email or web address] 21:39:00 Test Item Value Reference Range Interpretation Comments BUN (test code = BUN) 52 7-22 [facility] [email or web address] 21:39:00 Test Item Value Reference Range Interpretation Comments Creatinine Lvl (test code = Creatinine 1.77 0.50-1.40 Lvl) [facility]2021-04-20 21:39:00 Test Item Value Reference Range Interpretation Comments Sodium Lvl (test code = Sodium Lvl) 139 135-145 [place] 542561-04-20 21:39:00 Test Item Value Reference Range Interpretation Comments Potassium Lvl (test code = Potassium 4.5 3.5-5.1 Lvl) [facility]2021-04-20 21:39:00 Test Item Value Reference Range Interpretation Comments Chloride Lvl (test code = Chloride Lvl) 114 95-109 [place] 542561-04-20 21:39:00 Test Item Value Reference Range Interpretation Comments CO2 (test code = CO2) 16 24-32 [place] 542561-04-20 21:39:00 Test Item Value Reference Range Interpretation Comments Calcium Lvl (test code = Calcium Lvl) 8.6 8.5-10.5 [place] 542561-04-20 21:39:00 Test Item Value Reference Range Interpretation Comments AGAP (test code = AGAP) 13.5 10.0-20.0 [facility]2021-04-20 21:39:00 Test Item Value Reference Range Interpretation Comments eGFR (test code = eGFR) 27 [facility]2021-04-20 21:39:00 Test Item Value Reference Range Interpretation Comments Total Protein (test code = Total 7.3 6.4-8.4 Protein) [facility]2021-04-20 21:39:00 Test Item Value Reference Range Interpretation Comments Albumin Lvl (test code = Albumin Lvl) 2.9 3.5-5.0 [facility]2021-04-20 21:39:00 Test Item Value Reference Range Interpretation Comments ALANINE AMINOTRANSFERASE 300 See_Comment [A utomated message] (test code = ALANINE The sys tem which AMINOTRANSFERASE) generated this result transmitted ref erence range: <=65. Th e reference range was not used to int erpret this result as normal/abnormal . [place] 542561-04-20 21:39:00 Test Item Value Reference Range Interpretation Comments ASPARTATE TRANSAMINASE 251 See_Comment [Aut omated message] (test code = ASPARTATE The s ystem which TRANSAMINASE) generated this result transmitted ref erence range: <=37. Th e reference range was not used to interpr et this result as normal/abnormal . [facility] [id number] 21:39:00 Test Item Value Reference Range Interpretation Comments Alk Phos (test code = Alk Phos) 301 39-136 [email or web address] [id number] 21:39:00 Test Item Value Reference Range Interpretation Comments Bili Total (test code = Bili Total) 0.5 0.2-1.3 [facility] [id number] 21:39:00 Test Item Value Reference Range Interpretation Comments Bili Direct (test code 0.2 See_Comment [Aut omated message] The = Bili Direct) system which generated this result tra nsmitted reference range : <=0.3. The reference r patria was not used to int erpret this result as josi l/abnormal. [email or web address] [id number] 21:39:00 Test Item Value Reference Range Interpretation Comments Bili Indirect (test 0.3 See_Comment [Automa rosendo message] The code = Bili Indirect) system which generated this result tra nsmitted reference range : <=1.0. The reference r patria was not used to int erpret this result as normal/abnormal . [facility] [id number] 21:39:00 Test Item Value Reference Range Interpretation Comments Globulin (test code = Globulin) 4.4 2.7-4.2 [facility] [id number] 21:39:00 Test Item Value Reference Range Interpretation Comments A/G Ratio (test code = A/G Ratio) 0.7 1 0.7-1.6 [facility] [id number] 21:39:00 Test Item Value Reference Range Interpretation Comments Lactic Acid Lvl (test code = Lactic 1.7 0.5-2.2 Acid Lvl) [facility]EcwqxejOCPXRUQUDZ0963-82-81 21:39:00 Test Item Value Reference Range Interpretation Comments WBC X 10x3 (test code = WBC X 10x3) 6.1 3.7-10.4 [place] 519361-04-20 21:39:00 Test Item Value Reference Range Interpretation Comments RBC X 10x6 (test code = RBC X 10x6) 3.88 4.20-5.40 [facility] CenterKinupooKVMNVYHFBO8140-76-78 21:39:00 Test Item Value Reference Range Interpretation Comments Hgb (test code = Hgb) 13.0 12.0-16.0 [facility] CenterDexzzspMAQQPVMBKG5799-25-51 21:39:00 Test Item Value Reference Range Interpretation Comments Hct (test code = Hct) 40.9 36.0-48.0 [facility] CenterDbnknhrQNZVBEBUNM2267-01-04 21:39:00 Test Item Value Reference Range Interpretation Comments MCV (test code = MCV) 105.5 80.0-98.0 [facility] CenterQmeskjnWCUPANSMIY2139-56-32 21:39:00 Test Item Value Reference Range Interpretation Comments MCH (test code = MCH) 33.6 pg 27.0-31.0 [facility] CenterQzsrbbgHPICIHGVIG4419-98-96 21:39:00 Test Item Value Reference Range Interpretation Comments MCHC (test code = MCHC) 31.8 32.0-36.0 [facility] CenterImkckngTNJJWEDJSJ7059-67-74 21:39:00 Test Item Value Reference Range Interpretation Comments RDW (test code = RDW) 15.6 11.5-14.5 [facility] CenterYulxcjnUMPGYSXPJS3386-70-14 21:39:00 Test Item Value Reference Range Interpretation Comments Platelet (test code = Platelet) 217 133-450 [facility] CenterWxuuwgdCGRIZUNMZY1569-14-83 21:39:00 Test Item Value Reference Range Interpretation Comments MPV (test code = MPV) 7.3 7.4-10.4 [facility] CenterPuvpuygVCCFFQGYSW4736-57-34 21:39:00 Test Item Value Reference Range Interpretation Comments PT (test code = PT) 17.4 s 12.0-14.7 [facility] CenterItnvneoVNOJQTMWHF5736-46-26 21:39:00 Test Item Value Reference Range Interpretation Comments INR (test code = INR) 1.46 1 0.85-1.17 [facility] CenterMhhdcdyQOHSSZTWAF1225-36-43 21:39:00 Test Item Value Reference Range Interpretation Comments PTT (test code = PTT) 43.0 s 22.9-35.8 [facility] CenterKrxxsoaEYSWFGQXBL3386-60-13 21:39:00 Test Item Value Reference Range Interpretation Comments Segs (test code = Segs) 84.4 45.0-75.0 [facility] CenterYechjuoAFVKZOKNLL4489-09-35 21:39:00 Test Item Value Reference Range Interpretation Comments Lymphocytes (test code = Lymphocytes) 8.4 20.0-40.0 [facility] CenterQpxcrvmCBMEEXXLFC7582-88-83 21:39:00 Test Item Value Reference Range Interpretation Comments Monocytes (test code = Monocytes) 6.5 2.0-12.0 [facility] CenterGfcolmyAWYGDGZEVO3446-76-85 21:39:00 Test Item Value Reference Range Interpretation Comments Eosinophils (test code = 0.3 See_Comment [A utomated message] The Eosinophils) system which ge nerated this result tra nsmitted reference range : <=4.0. The reference r patria was not used to int erpret this result as normal/abnormal . [facility] CenterCdjyavjFFMUEDCAVF2481-20-98 21:39:00 Test Item Value Reference Range Interpretation Comments Basophils (test code = 0.4 See_Comment [Aut omated message] The Basophils) system which ge nerated this result tra nsmitted reference range : <=1.0. The reference r patria was not used to int erpret this result as normal/abnormal . [facility] CenterGiwzseyFPKJGKXZRX6818-37-05 21:39:00 Test Item Value Reference Range Interpretation Comments Neutrophils # (test code = Neutrophils 5.1 1.5-8.1 #) [facility] CenterWjpxmxqKCBIWTRPFP3321-52-96 21:39:00 Test Item Value Reference Range Interpretation Comments Lymphocytes # (test code = Lymphocytes 0.5 1.0-5.5 #) [facility] CenterPngviqqPQNLSNMDGO6080-64-80 21:39:00 Test Item Value Reference Range Interpretation Comments Monocytes # (test code 0.4 See_Comment [Aut omated message] The = Monocytes #) system which generated this result tra nsmitted reference range : <=0.8. The reference r patria was not used to int erpret this result as normal/abnormal . [facility] CenterRlrkytgNUPOEWFWWA0035-32-29 21:39:00 Test Item Value Reference Range Interpretation Comments Macrocyte (test code = 1+ *ABN*(02/28/21 Macrocyte) 4:39 PM) [facility]ITALGEXOFTM0022-52-27 21:39:00 Test Item Value Reference Range Interpretation Comments Total CK (test code = Total CK) 63 12-191 [facility] [id number] 21:39:00 Test Item Value Reference Range Interpretation Comments Troponin-I (test code no gt See_Comment [Auto mated message] The = Troponin-I) system which g enerated this result transmit rosendo reference range : <=0.40. The reference r patria was not used to interpr et this result as josi l/abnormal. [facility] [id number] 21:39:00 Test Item Value Reference Range Interpretation Comments Glucose Lvl (test code = Glucose Lvl) 110 70-99 [facility]2021-04-20 21:39:00 Test Item Value Reference Range Interpretation Comments BUN (test code = BUN) 52 7-22 [facility]2021-04-20 21:39:00 Test Item Value Reference Range Interpretation Comments Creatinine Lvl (test code = Creatinine 1.77 0.50-1.40 Lvl) [facility]2021-04-20 21:39:00 Test Item Value Reference Range Interpretation Comments Sodium Lvl (test code = Sodium Lvl) 139 135-145 [facility] [id number] 21:39:00 Test Item Value Reference Range Interpretation Comments Potassium Lvl (test code = Potassium 4.5 3.5-5.1 Lvl) [facility] [id number] 21:39:00 Test Item Value Reference Range Interpretation Comments Chloride Lvl (test code = Chloride Lvl) 114 95-109 [facility] [id number] 21:39:00 Test Item Value Reference Range Interpretation Comments CO2 (test code = CO2) 16 24-32 [facility] [id number] 21:39:00 Test Item Value Reference Range Interpretation Comments Calcium Lvl (test code = Calcium Lvl) 8.6 8.5-10.5 [facility] [id number] 21:39:00 Test Item Value Reference Range Interpretation Comments AGAP (test code = AGAP) 13.5 10.0-20.0 [facility] [id number] 21:39:00 Test Item Value Reference Range Interpretation Comments eGFR (test code = eGFR) 27 [facility]2021-04-20 21:39:00 Test Item Value Reference Range Interpretation Comments Total Protein (test code = Total 7.3 6.4-8.4 Protein) [address]04-20 21:39:00 Test Item Value Reference Range Interpretation Comments Albumin Lvl (test code = Albumin Lvl) 2.9 3.5-5.0 [place] 542561-04-20 21:39:00 Test Item Value Reference Range Interpretation Comments ALANINE AMINOTRANSFERASE 300 See_Comment [A utomated message] (test code = ALANINE The sys tem which AMINOTRANSFERASE) generated this result transmitted ref erence range: <=65. Th e reference range was not used to int erpret this result as normal/abnormal . [facility] [id number] 21:39:00 Test Item Value Reference Range Interpretation Comments ASPARTATE TRANSAMINASE 251 See_Comment [Aut omated message] (test code = ASPARTATE The s ystem which TRANSAMINASE) generated this result transmitted ref erence range: <=37. Th e reference range was not used to interpr et this result as normal/abnormal . [facility] [id number] 21:39:00 Test Item Value Reference Range Interpretation Comments Alk Phos (test code = Alk Phos) 301 39-136 [place] 542561-04-20 21:39:00 Test Item Value Reference Range Interpretation Comments Bili Total (test code = Bili Total) 0.5 0.2-1.3 [place] [address]-04-20 21:39:00 Test Item Value Reference Range Interpretation Comments Bili Direct (test code 0.2 See_Comment [Aut omated message] The = Bili Direct) system which generated this result tra nsmitted reference range : <=0.3. The reference r patria was not used to int erpret this result as josi l/abnormal. [facility] [id number] 21:39:00 Test Item Value Reference Range Interpretation Comments Bili Indirect (test 0.3 See_Comment [Automa rosendo message] The code = Bili Indirect) system which generated this result tra nsmitted reference range : <=1.0. The reference r patria was not used to int erpret this result as normal/abnormal . [facility] [id number] 21:39:00 Test Item Value Reference Range Interpretation Comments Globulin (test code = Globulin) 4.4 2.7-4.2 [facility] [id number] 21:39:00 Test Item Value Reference Range Interpretation Comments A/G Ratio (test code = A/G Ratio) 0.7 1 0.7-1.6 [facility] [id number] 21:39:00 Test Item Value Reference Range Interpretation Comments Lactic Acid Lvl (test code = Lactic 1.7 0.5-2.2 Acid Lvl) [facility] CenterFfscnytKZLUFKGSCB1299-16-45 21:39:00 Test Item Value Reference Range Interpretation Comments WBC X 10x3 (test code = WBC X 10x3) 6.1 3.7-10.4 [facility] CenterDqzrxtpXWOMGCUQQU4325-65-94 21:39:00 Test Item Value Reference Range Interpretation Comments RBC X 10x6 (test code = RBC X 10x6) 3.88 4.20-5.40 [facility] CenterMesgotjJBKEVAGDHR8674-78-37 21:39:00 Test Item Value Reference Range Interpretation Comments Hgb (test code = Hgb) 13.0 12.0-16.0 [facility] CenterSzxvywpRQPCYYMAAV3433-28-65 21:39:00 Test Item Value Reference Range Interpretation Comments Hct (test code = Hct) 40.9 36.0-48.0 [facility] CenterUulhpfeMSECQQPTKM8699-30-76 21:39:00 Test Item Value Reference Range Interpretation Comments MCV (test code = MCV) 105.5 80.0-98.0 [facility] CenterOvygirnYKWCHZNAJY6344-68-66 21:39:00 Test Item Value Reference Range Interpretation Comments MCH (test code = MCH) 33.6 pg 27.0-31.0 [facility] CenterXgzfaocPVDUUVATTL1397-31-77 21:39:00 Test Item Value Reference Range Interpretation Comments MCHC (test code = MCHC) 31.8 32.0-36.0 [facility] CenterAzjjeigMPXTJRWOZC2026-61-82 21:39:00 Test Item Value Reference Range Interpretation Comments RDW (test code = RDW) 15.6 11.5-14.5 [facility] CenterMredbikQDMINSXQEC5712-99-06 21:39:00 Test Item Value Reference Range Interpretation Comments Platelet (test code = Platelet) 217 133-450 [facility] CenterBgctzmmSTHVRKBFFC6751-83-64 21:39:00 Test Item Value Reference Range Interpretation Comments MPV (test code = MPV) 7.3 7.4-10.4 [facility] CenterEiawrxsQMQMJBAZWB2685-65-36 21:39:00 Test Item Value Reference Range Interpretation Comments PT (test code = PT) 17.4 s 12.0-14.7 [place] 519361-04-20 21:39:00 Test Item Value Reference Range Interpretation Comments INR (test code = INR) 1.46 1 0.85-1.17 [place] 519361-04-20 21:39:00 Test Item Value Reference Range Interpretation Comments PTT (test code = PTT) 43.0 s 22.9-35.8 [place] 519361-04-20 21:39:00 Test Item Value Reference Range Interpretation Comments Segs (test code = Segs) 84.4 45.0-75.0 [place] 519361-04-20 21:39:00 Test Item Value Reference Range Interpretation Comments Lymphocytes (test code = Lymphocytes) 8.4 20.0-40.0 [facility] CenterTbaikrzXHXSHWJCTR2259-12-96 21:39:00 Test Item Value Reference Range Interpretation Comments Monocytes (test code = Monocytes) 6.5 2.0-12.0 [facility] CenterNlwribmCAIMGDMQHQ9916-54-20 21:39:00 Test Item Value Reference Range Interpretation Comments Eosinophils (test code = 0.3 See_Comment [A utomated message] The Eosinophils) system which ge nerated this result tra nsmitted reference range : <=4.0. The reference r patria was not used to int erpret this result as normal/abnormal . [facility] CenterBtvicvhLBMRODPVPF8240-00-52 21:39:00 Test Item Value Reference Range Interpretation Comments Basophils (test code = 0.4 See_Comment [Aut omated message] The Basophils) system which ge nerated this result tra nsmitted reference range : <=1.0. The reference r patria was not used to int erpret this result as normal/abnormal . [facility] CenterRvkittgDDXBVIOHJW8332-21-13 21:39:00 Test Item Value Reference Range Interpretation Comments Neutrophils # (test code = Neutrophils 5.1 1.5-8.1 #) [facility] CenterAgbocpeCHTQWMZGOE3733-44-05 21:39:00 Test Item Value Reference Range Interpretation Comments Lymphocytes # (test code = Lymphocytes 0.5 1.0-5.5 #) [facility] [id number] 21:39:00 Test Item Value Reference Range Interpretation Comments Monocytes # (test code 0.4 See_Comment [Aut omated message] The = Monocytes #) system which generated this result tra nsmitted reference range : <=0.8. The reference r patria was not used to int erpret this result as normal/abnormal . [facility]MFRUZGRYEX2905[facility] 21:39:00 Test Item Value Reference Range Interpretation Comments Macrocyte (test code = 1+ *ABN*(02/28/21 Macrocyte) 4:39 PM) [facility] [id number] 21:39:00 Test Item Value Reference Range Interpretation Comments Total CK (test code = Total CK) 63 12-191 [facility] [id number] 21:39:00 Test Item Value Reference Range Interpretation Comments Troponin-I (test code no gt See_Comment [Auto mated message] The = Troponin-I) system which g enerated this result transmit rosendo reference range : <=0.40. The reference r patria was not used to interpr et this result as josi l/abnormal. [facility] [id number] 21:39:00 Test Item Value Reference Range Interpretation Comments Glucose Lvl (test code = Glucose Lvl) 110 70-99 [facility] [id number] 21:39:00 Test Item Value Reference Range Interpretation Comments BUN (test code = BUN) 52 7-22 [facility] [id number] 21:39:00 Test Item Value Reference Range Interpretation Comments Creatinine Lvl (test code = Creatinine 1.77 0.50-1.40 Lvl) [facility] [id number] 21:39:00 Test Item Value Reference Range Interpretation Comments Sodium Lvl (test code = Sodium Lvl) 139 135-145 [facility] [id number] 21:39:00 Test Item Value Reference Range Interpretation Comments Potassium Lvl (test code = Potassium 4.5 3.5-5.1 Lvl) [facility] [id number] 21:39:00 Test Item Value Reference Range Interpretation Comments Chloride Lvl (test code = Chloride Lvl) 114 95-109 [place] 542561-04-20 21:39:00 Test Item Value Reference Range Interpretation Comments CO2 (test code = CO2) 16 24-32 [place] 542561-04-20 21:39:00 Test Item Value Reference Range Interpretation Comments Calcium Lvl (test code = Calcium Lvl) 8.6 8.5-10.5 [place] 542561-04-20 21:39:00 Test Item Value Reference Range Interpretation Comments AGAP (test code = AGAP) 13.5 10.0-20.0 [place] 542561-04-20 21:39:00 Test Item Value Reference Range Interpretation Comments eGFR (test code = eGFR) 27 [place] 542561-04-20 21:39:00 Test Item Value Reference Range Interpretation Comments Total Protein (test code = Total 7.3 6.4-8.4 Protein) [place] 542561-04-20 21:39:00 Test Item Value Reference Range Interpretation Comments Albumin Lvl (test code = Albumin Lvl) 2.9 3.5-5.0 [place] 542561-04-20 21:39:00 Test Item Value Reference Range Interpretation Comments ALANINE AMINOTRANSFERASE 300 See_Comment [A utomated message] (test code = ALANINE The sys tem which AMINOTRANSFERASE) generated this result transmitted ref erence range: <=65. Th e reference range was not used to int erpret this result as normal/abnormal . [place] 542561-04-20 21:39:00 Test Item Value Reference Range Interpretation Comments ASPARTATE TRANSAMINASE 251 See_Comment [Aut omated message] (test code = ASPARTATE The s ystem which TRANSAMINASE) generated this result transmitted ref erence range: <=37. Th e reference range was not used to interpr et this result as normal/abnormal . [facility] [id number] 21:39:00 Test Item Value Reference Range Interpretation Comments Alk Phos (test code = Alk Phos) 301 39-136 [place] 542561-04-20 21:39:00 Test Item Value Reference Range Interpretation Comments Bili Total (test code = Bili Total) 0.5 0.2-1.3 [place] 542561-04-20 21:39:00 Test Item Value Reference Range Interpretation Comments Bili Direct (test code 0.2 See_Comment [Aut omated message] The = Bili Direct) system which generated this result tra nsmitted reference range : <=0.3. The reference r patria was not used to int erpret this result as josi l/abnormal. [facility] [id number] 21:39:00 Test Item Value Reference Range Interpretation Comments Bili Indirect (test 0.3 See_Comment [Automa rosendo message] The code = Bili Indirect) system which generated this result tra nsmitted reference range : <=1.0. The reference r patria was not used to int erpret this result as normal/abnormal . [facility] [id number] 21:39:00 Test Item Value Reference Range Interpretation Comments Globulin (test code = Globulin) 4.4 2.7-4.2 [facility] [id number] 21:39:00 Test Item Value Reference Range Interpretation Comments A/G Ratio (test code = A/G Ratio) 0.7 1 0.7-1.6 [facility] [id number] 21:39:00 Test Item Value Reference Range Interpretation Comments Lactic Acid Lvl (test code = Lactic 1.7 0.5-2.2 Acid Lvl) [facility] HospitalEvlhcwfZJVMFIRQGF2964-13-80 21:39:00 Test Item Value Reference Range Interpretation Comments WBC X 10x3 (test code = WBC X 10x3) 6.1 3.7-10.4 [facility] HospitalVkzdjzeAGDHPLPYAH5996-04-31 21:39:00 Test Item Value Reference Range Interpretation Comments RBC X 10x6 (test code = RBC X 10x6) 3.88 4.20-5.40 [facility] HospitalCmjjlwqBBKDEMKTWM3078-93-96 21:39:00 Test Item Value Reference Range Interpretation Comments Hgb (test code = Hgb) 13.0 12.0-16.0 [facility] HospitalRaetjikPKVXRSAEMB7655-80-47 21:39:00 Test Item Value Reference Range Interpretation Comments Hct (test code = Hct) 40.9 36.0-48.0 [facility] HospitalJqveathMUKCUPWRFY7292-36-16 21:39:00 Test Item Value Reference Range Interpretation Comments MCV (test code = MCV) 105.5 80.0-98.0 [facility] CenterQfauvreRKGGWYDWLR8671-23-04 21:39:00 Test Item Value Reference Range Interpretation Comments MCH (test code = MCH) 33.6 pg 27.0-31.0 [place] 519361-04-20 21:39:00 Test Item Value Reference Range Interpretation Comments MCHC (test code = MCHC) 31.8 32.0-36.0 [facility] CenterBtcxlaxUJSSCUGYUL5796-68-56 21:39:00 Test Item Value Reference Range Interpretation Comments RDW (test code = RDW) 15.6 11.5-14.5 [place] 519361-04-20 21:39:00 Test Item Value Reference Range Interpretation Comments Platelet (test code = Platelet) 217 133-450 [facility] CenterBkqhmjgXKFBDRNHZD8526-02-99 21:39:00 Test Item Value Reference Range Interpretation Comments MPV (test code = MPV) 7.3 7.4-10.4 [place] 519361-04-20 21:39:00 Test Item Value Reference Range Interpretation Comments PT (test code = PT) 17.4 s 12.0-14.7 [facility] CenterIczfjywGIRGVQWNBV6709-94-50 21:39:00 Test Item Value Reference Range Interpretation Comments INR (test code = INR) 1.46 1 0.85-1.17 [facility] CenterAlkujkqONUVSPHXKM5833-06-12 21:39:00 Test Item Value Reference Range Interpretation Comments PTT (test code = PTT) 43.0 s 22.9-35.8 [place] 519361-04-20 21:39:00 Test Item Value Reference Range Interpretation Comments Segs (test code = Segs) 84.4 45.0-75.0 [facility] CenterTylnmjyNIBUOLAFPY4988-07-51 21:39:00 Test Item Value Reference Range Interpretation Comments Lymphocytes (test code = Lymphocytes) 8.4 20.0-40.0 [place] 519361-04-20 21:39:00 Test Item Value Reference Range Interpretation Comments Monocytes (test code = Monocytes) 6.5 2.0-12.0 [place] 519361-04-20 21:39:00 Test Item Value Reference Range Interpretation Comments Eosinophils (test code = 0.3 See_Comment [A utomated message] The Eosinophils) system which ge nerated this result tra nsmitted reference range : <=4.0. The reference r patria was not used to int erpret this result as normal/abnormal . [facility] KrssaynPQYIFHRJCR9414-98-82 21:39:00 Test Item Value Reference Range Interpretation Comments Basophils (test code = 0.4 See_Comment [Aut omated message] The Basophils) system which ge nerated this result tra nsmitted reference range : <=1.0. The reference r patria was not used to int erpret this result as normal/abnormal . [facility] ResourcesZtbotmqUKBPTEJDII2159-71-06 21:39:00 Test Item Value Reference Range Interpretation Comments Neutrophils # (test code = Neutrophils 5.1 1.5-8.1 #) [facility] ResourcesQgyygjvBMTCODYSQK5280-28-18 21:39:00 Test Item Value Reference Range Interpretation Comments Lymphocytes # (test code = Lymphocytes 0.5 1.0-5.5 #) [facility] ResourcesJzwqyuoIMZWGWUBTP3907-63-66 21:39:00 Test Item Value Reference Range Interpretation Comments Monocytes # (test code 0.4 See_Comment [Aut omated message] The = Monocytes #) system which generated this result tra nsmitted reference range : <=0.8. The reference r patria was not used to int erpret this result as normal/abnormal . [facility] ResourcesYhdafrgRTVCUOYMBS8516-03-32 21:39:00 Test Item Value Reference Range Interpretation Comments Macrocyte (test code = 1+ *ABN*(02/28/21 Macrocyte) 4:39 PM) [facility] ResourcesJ[facility]2021-04-20 21:39:00 Test Item Value Reference Range Interpretation Comments Total CK (test code = Total CK) 63 12-191 [facility] Resources[facility] [id number] 21:39:00 Test Item Value Reference Range Interpretation Comments Troponin-I (test code no gt See_Comment [Auto mated message] The = Troponin-I) system which g enerated this result transmit rosendo reference range : <=0.40. The reference r patria was not used to interpr et this result as josi l/abnormal. [facility] [employer]2021-04-20 21:39:00 Test Item Value Reference Range Interpretation Comments Glucose Lvl (test code = Glucose Lvl) 110 70-99 [facility] [employer]2021-04-20 21:39:00 Test Item Value Reference Range Interpretation Comments BUN (test code = BUN) 52 7-22 [facility]2021-04-20 21:39:00 Test Item Value Reference Range Interpretation Comments Creatinine Lvl (test code = Creatinine 1.77 0.50-1.40 Lvl) [facility]2021-04-20 21:39:00 Test Item Value Reference Range Interpretation Comments Sodium Lvl (test code = Sodium Lvl) 139 135-145 [facility]2021-04-20 21:39:00 Test Item Value Reference Range Interpretation Comments Potassium Lvl (test code = Potassium 4.5 3.5-5.1 Lvl) [facility]2021-04-20 21:39:00 Test Item Value Reference Range Interpretation Comments Chloride Lvl (test code = Chloride Lvl) 114 95-109 [facility]2021-04-20 21:39:00 Test Item Value Reference Range Interpretation Comments CO2 (test code = CO2) 16 24-32 [place] 542561-04-20 21:39:00 Test Item Value Reference Range Interpretation Comments Calcium Lvl (test code = Calcium Lvl) 8.6 8.5-10.5 [facility]2021-04-20 21:39:00 Test Item Value Reference Range Interpretation Comments AGAP (test code = AGAP) 13.5 10.0-20.0 [facility]2021-04-20 21:39:00 Test Item Value Reference Range Interpretation Comments eGFR (test code = eGFR) 27 [facility]2021-04-20 21:39:00 Test Item Value Reference Range Interpretation Comments Total Protein (test code = Total 7.3 6.4-8.4 Protein) [facility]2021-04-20 21:39:00 Test Item Value Reference Range Interpretation Comments Albumin Lvl (test code = Albumin Lvl) 2.9 3.5-5.0 [facility]2021-04-20 21:39:00 Test Item Value Reference Range Interpretation Comments ALANINE AMINOTRANSFERASE 300 See_Comment [A utomated message] (test code = ALANINE The sys tem which AMINOTRANSFERASE) generated this result transmitted ref erence range: <=65. Th e reference range was not used to int erpret this result as normal/abnormal . [facility]2021-04-20 21:39:00 Test Item Value Reference Range Interpretation Comments ASPARTATE TRANSAMINASE 251 See_Comment [Aut omated message] (test code = ASPARTATE The s ystem which TRANSAMINASE) generated this result transmitted ref erence range: <=37. Th e reference range was not used to interpr et this result as normal/abnormal . [facility]2021-04-20 21:39:00 Test Item Value Reference Range Interpretation Comments Alk Phos (test code = Alk Phos) 301 39-136 [facility]2021-04-20 21:39:00 Test Item Value Reference Range Interpretation Comments Bili Total (test code = Bili Total) 0.5 0.2-1.3 [place] 542561-04-20 21:39:00 Test Item Value Reference Range Interpretation Comments Bili Direct (test code 0.2 See_Comment [Aut omated message] The = Bili Direct) system which generated this result tra nsmitted reference range : <=0.3. The reference r patria was not used to int erpret this result as josi l/abnormal. [facility]2021-04-20 21:39:00 Test Item Value Reference Range Interpretation Comments Bili Indirect (test 0.3 See_Comment [Automa rosendo message] The code = Bili Indirect) system which generated this result tra nsmitted reference range : <=1.0. The reference r patria was not used to int erpret this result as normal/abnormal . [facility]2021-04-20 21:39:00 Test Item Value Reference Range Interpretation Comments Globulin (test code = Globulin) 4.4 2.7-4.2 [facility]2021-04-20 21:39:00 Test Item Value Reference Range Interpretation Comments A/G Ratio (test code = A/G Ratio) 0.7 1 0.7-1.6 [place] 542561-04-20 21:39:00 Test Item Value Reference Range Interpretation Comments Lactic Acid Lvl (test code = Lactic 1.7 0.5-2.2 Acid Lvl) [facility] CenterRotadakOJWDSDOUEF4691-89-68 21:39:00 Test Item Value Reference Range Interpretation Comments WBC X 10x3 (test code = WBC X 10x3) 6.1 3.7-10.4 [facility] CenterDbpglbvEQOYFQRDPZ4033-67-92 21:39:00 Test Item Value Reference Range Interpretation Comments RBC X 10x6 (test code = RBC X 10x6) 3.88 4.20-5.40 [facility] CenterPcxmozjVDBYWUXSAU3865-63-45 21:39:00 Test Item Value Reference Range Interpretation Comments Hgb (test code = Hgb) 13.0 12.0-16.0 [facility] CenterDfyurtfMWUGJILDGI4456-02-65 21:39:00 Test Item Value Reference Range Interpretation Comments Hct (test code = Hct) 40.9 36.0-48.0 [facility] CenterWduoxkvUADLJXDHIY8213-51-57 21:39:00 Test Item Value Reference Range Interpretation Comments MCV (test code = MCV) 105.5 80.0-98.0 [facility] CenterFsqmyabAUJSLHNWKO7441-43-75 21:39:00 Test Item Value Reference Range Interpretation Comments MCH (test code = MCH) 33.6 pg 27.0-31.0 [facility] CenterEcizpxcHOWMAWDFEX4639-50-00 21:39:00 Test Item Value Reference Range Interpretation Comments MCHC (test code = MCHC) 31.8 32.0-36.0 [facility] CenterZzcpzbwFLHFGMRLTT3920-94-33 21:39:00 Test Item Value Reference Range Interpretation Comments RDW (test code = RDW) 15.6 11.5-14.5 [facility] CenterKufmhwiPFELGIPFPZ4404-54-46 21:39:00 Test Item Value Reference Range Interpretation Comments Platelet (test code = Platelet) 217 133-450 [facility] CenterWdszdskEEALPAELGX5061-87-64 21:39:00 Test Item Value Reference Range Interpretation Comments MPV (test code = MPV) 7.3 7.4-10.4 [facility] CenterQpjvkvnOUCNBUBYPZ8420-14-27 21:39:00 Test Item Value Reference Range Interpretation Comments PT (test code = PT) 17.4 s 12.0-14.7 [facility] CenterDzgnltoPVEYEGSIPN2098-03-13 21:39:00 Test Item Value Reference Range Interpretation Comments INR (test code = INR) 1.46 1 0.85-1.17 [facility] CenterVvpmjmvSOSUQCQIAV5393-11-74 21:39:00 Test Item Value Reference Range Interpretation Comments PTT (test code = PTT) 43.0 s 22.9-35.8 [facility] CenterUvlrevvZMSOLJWMTI8300-06-01 21:39:00 Test Item Value Reference Range Interpretation Comments Segs (test code = Segs) 84.4 45.0-75.0 [facility] CenterRjtqlbpQYHAZELEMB2871-36-48 21:39:00 Test Item Value Reference Range Interpretation Comments Lymphocytes (test code = Lymphocytes) 8.4 20.0-40.0 [facility] CenterWwxdllmOZNAGBDTJI6119-91-90 21:39:00 Test Item Value Reference Range Interpretation Comments Monocytes (test code = Monocytes) 6.5 2.0-12.0 [facility] CenterQedhkbkJNVGRMCNEZ6294-58-21 21:39:00 Test Item Value Reference Range Interpretation Comments Eosinophils (test code = 0.3 See_Comment [A utomated message] The Eosinophils) system which ge nerated this result tra nsmitted reference range : <=4.0. The reference r patria was not used to int erpret this result as normal/abnormal . [facility] CenterRieztmmALYAQQMYTY5435-26-36 21:39:00 Test Item Value Reference Range Interpretation Comments Basophils (test code = 0.4 See_Comment [Aut omated message] The Basophils) system which ge nerated this result tra nsmitted reference range : <=1.0. The reference r patria was not used to int erpret this result as normal/abnormal . [facility] CenterDqppalzGAQSQXDJGJ6160-28-18 21:39:00 Test Item Value Reference Range Interpretation Comments Neutrophils # (test code = Neutrophils 5.1 1.5-8.1 #) [facility] CenterTpfqzniUTWPJIJRBX7779-64-52 21:39:00 Test Item Value Reference Range Interpretation Comments Lymphocytes # (test code = Lymphocytes 0.5 1.0-5.5 #) [facility] CenterVhhilpuYTLUSMTNSE9816-33-63 21:39:00 Test Item Value Reference Range Interpretation Comments Monocytes # (test code 0.4 See_Comment [Aut omated message] The = Monocytes #) system which generated this result tra nsmitted reference range : <=0.8. The reference r patria was not used to int erpret this result as normal/abnormal . [facility] CenterVsiyjiyKZXSYGFXBS6010-13-32 21:39:00 Test Item Value Reference Range Interpretation Comments Macrocyte (test code = 1+ *ABN*(02/28/21 Macrocyte) 4:39 PM) [facility]2021-04-20 21:39:00 Test Item Value Reference Range Interpretation Comments Total CK (test code = Total CK) 63 12-191 [facility] EDZIJSN8258-32-32 21:39:00 Test Item Value Reference Range Interpretation Comments Troponin-I (test code no gt See_Comment [Auto mated message] The = Troponin-I) system which g enerated this result transmit rosendo reference range : <=0.40. The reference r patria was not used to interpr et this result as josi l/abnormal. [facility] [id number] 21:39:00 Test Item Value Reference Range Interpretation Comments Glucose Lvl (test code = Glucose Lvl) 110 70-99 [facility] [id number] 21:39:00 Test Item Value Reference Range Interpretation Comments BUN (test code = BUN) 52 7-22 [facility]2021-04-20 21:39:00 Test Item Value Reference Range Interpretation Comments Creatinine Lvl (test code = Creatinine 1.77 0.50-1.40 Lvl) [facility] [id number] 21:39:00 Test Item Value Reference Range Interpretation Comments Sodium Lvl (test code = Sodium Lvl) 139 135-145 [facility] [id number] 21:39:00 Test Item Value Reference Range Interpretation Comments Potassium Lvl (test code = Potassium 4.5 3.5-5.1 Lvl) [facility] [id number] 21:39:00 Test Item Value Reference Range Interpretation Comments Chloride Lvl (test code = Chloride Lvl) 114 95-109 [facility] [id number] 21:39:00 Test Item Value Reference Range Interpretation Comments CO2 (test code = CO2) 16 24-32 [facility] [id number] 21:39:00 Test Item Value Reference Range Interpretation Comments Calcium Lvl (test code = Calcium Lvl) 8.6 8.5-10.5 [facility] [id number] 21:39:00 Test Item Value Reference Range Interpretation Comments AGAP (test code = AGAP) 13.5 10.0-20.0 [facility] [id number] 21:39:00 Test Item Value Reference Range Interpretation Comments eGFR (test code = eGFR) 27 [facility]2021-04-20 21:39:00 Test Item Value Reference Range Interpretation Comments Total Protein (test code = Total 7.3 6.4-8.4 Protein) [place] 542561-04-20 21:39:00 Test Item Value Reference Range Interpretation Comments Albumin Lvl (test code = Albumin Lvl) 2.9 3.5-5.0 [place] 542561-04-20 21:39:00 Test Item Value Reference Range Interpretation Comments ALANINE AMINOTRANSFERASE 300 See_Comment [A utomated message] (test code = ALANINE The sys tem which AMINOTRANSFERASE) generated this result transmitted ref erence range: <=65. Th e reference range was not used to int erpret this result as normal/abnormal . [place] 542561-04-20 21:39:00 Test Item Value Reference Range Interpretation Comments ASPARTATE TRANSAMINASE 251 See_Comment [Aut omated message] (test code = ASPARTATE The s ystem which TRANSAMINASE) generated this result transmitted ref erence range: <=37. Th e reference range was not used to interpr et this result as normal/abnormal . [facility]2021-04-20 21:39:00 Test Item Value Reference Range Interpretation Comments Alk Phos (test code = Alk Phos) 301 39-136 [facility]2021-04-20 21:39:00 Test Item Value Reference Range Interpretation Comments Bili Total (test code = Bili Total) 0.5 0.2-1.3 [place] 542561-04-20 21:39:00 Test Item Value Reference Range Interpretation Comments Bili Direct (test code 0.2 See_Comment [Aut omated message] The = Bili Direct) system which generated this result tra nsmitted reference range : <=0.3. The reference r patria was not used to int erpret this result as josi l/abnormal. [facility]2021-04-20 21:39:00 Test Item Value Reference Range Interpretation Comments Bili Indirect (test 0.3 See_Comment [Automa rosendo message] The code = Bili Indirect) system which generated this result tra nsmitted reference range : <=1.0. The reference r patria was not used to int erpret this result as normal/abnormal . [facility]2021-04-20 21:39:00 Test Item Value Reference Range Interpretation Comments Globulin (test code = Globulin) 4.4 2.7-4.2 [facility]CHE[facility] [id number] 21:39:00 Test Item Value Reference Range Interpretation Comments A/G Ratio (test code = A/G Ratio) 0.7 1 0.7-1.6 [facility] [id number] 21:39:00 Test Item Value Reference Range Interpretation Comments Lactic Acid Lvl (test code = Lactic 1.7 0.5-2.2 Acid Lvl) [facility] HospitalAulaldhEPYCRXCCXO7882-46-32 21:39:00 Test Item Value Reference Range Interpretation Comments WBC X 10x3 (test code = WBC X 10x3) 6.1 3.7-10.4 [facility] CenterIhjklfoHFWCIYHANT5191-63-27 21:39:00 Test Item Value Reference Range Interpretation Comments RBC X 10x6 (test code = RBC X 10x6) 3.88 4.20-5.40 [facility] ServicesCdqgzafINYZOWMNSW8348-13-42 21:39:00 Test Item Value Reference Range Interpretation Comments Hgb (test code = Hgb) 13.0 12.0-16.0 [facility] ServicesZykzlgkZCHTEMRGPP9571-54-75 21:39:00 Test Item Value Reference Range Interpretation Comments Hct (test code = Hct) 40.9 36.0-48.0 [facility] CenterHtfslxmVSTKRFDSBD6151-97-86 21:39:00 Test Item Value Reference Range Interpretation Comments MCV (test code = MCV) 105.5 80.0-98.0 [facility] CenterOsfpyubYMPDQEBZNH9969-65-47 21:39:00 Test Item Value Reference Range Interpretation Comments MCH (test code = MCH) 33.6 pg 27.0-31.0 [facility] ServicesMkazkewYUHSDVFUWX6400-43-94 21:39:00 Test Item Value Reference Range Interpretation Comments MCHC (test code = MCHC) 31.8 32.0-36.0 [facility] ServicesWobtcolMFOOQOUOQZ8241-19-04 21:39:00 Test Item Value Reference Range Interpretation Comments RDW (test code = RDW) 15.6 11.5-14.5 [facility] ServicesJyinvmeLXVJWLVCNW7251-79-74 21:39:00 Test Item Value Reference Range Interpretation Comments Platelet (test code = Platelet) 217 133-450 [facility]ZwlqohuALVAHLISRY4233-76-35 21:39:00 Test Item Value Reference Range Interpretation Comments MPV (test code = MPV) 7.3 7.4-10.4 [facility] CenterJmzmjzkPYRCMYMVLF2766-85-71 21:39:00 Test Item Value Reference Range Interpretation Comments PT (test code = PT) 17.4 s 12.0-14.7 [facility] CenterFgwmdhxTEMNOVAQRG5576-79-64 21:39:00 Test Item Value Reference Range Interpretation Comments INR (test code = INR) 1.46 1 0.85-1.17 [facility] CenterMaurswcSDCIMKYZOF4580-32-15 21:39:00 Test Item Value Reference Range Interpretation Comments PTT (test code = PTT) 43.0 s 22.9-35.8 [place] 519361-04-20 21:39:00 Test Item Value Reference Range Interpretation Comments Segs (test code = Segs) 84.4 45.0-75.0 [facility] CenterExzzkdyVESAOQYYQO4344-98-58 21:39:00 Test Item Value Reference Range Interpretation Comments Lymphocytes (test code = Lymphocytes) 8.4 20.0-40.0 [facility] CenterZuqmdprVSFACMIZUU0755-59-97 21:39:00 Test Item Value Reference Range Interpretation Comments Monocytes (test code = Monocytes) 6.5 2.0-12.0 [facility] CenterUnvtnxjRDINGJEPFW1392-17-15 21:39:00 Test Item Value Reference Range Interpretation Comments Eosinophils (test code = 0.3 See_Comment [A utomated message] The Eosinophils) system which ge nerated this result tra nsmitted reference range : <=4.0. The reference r patria was not used to int erpret this result as normal/abnormal . [facility] CenterHkkxgqoVDLKLMBWFM4211-78-10 21:39:00 Test Item Value Reference Range Interpretation Comments Basophils (test code = 0.4 See_Comment [Aut omated message] The Basophils) system which ge nerated this result tra nsmitted reference range : <=1.0. The reference r patria was not used to int erpret this result as normal/abnormal . [facility] CenterOftlqfmIGNKXJDGZM7563-77-64 21:39:00 Test Item Value Reference Range Interpretation Comments Neutrophils # (test code = Neutrophils 5.1 1.5-8.1 #) [place] 519361-04-20 21:39:00 Test Item Value Reference Range Interpretation Comments Lymphocytes # (test code = Lymphocytes 0.5 1.0-5.5 #) [facility] CenterAsncudkDBGPQUQREO9784-20-38 21:39:00 Test Item Value Reference Range Interpretation Comments Monocytes # (test code 0.4 See_Comment [Aut omated message] The = Monocytes #) system which generated this result tra nsmitted reference range : <=0.8. The reference r patria was not used to int erpret this result as normal/abnormal . [facility] CenterFjycgcyVBLUATGRTH9074-94-55 21:39:00 Test Item Value Reference Range Interpretation Comments Macrocyte (test code = 1+ *ABN*(02/28/21 Macrocyte) 4:39 PM) [facility] [id number] 21:39:00 Test Item Value Reference Range Interpretation Comments Total CK (test code = Total CK) 63 12-191 [facility] [id number] 21:39:00 Test Item Value Reference Range Interpretation Comments Troponin-I (test code no gt See_Comment [Auto mated message] The = Troponin-I) system which g enerated this result transmit rosendo reference range : <=0.40. The reference r patria was not used to interpr et this result as josi l/abnormal. [facility] [id number] 21:39:00 Test Item Value Reference Range Interpretation Comments Glucose Lvl (test code = Glucose Lvl) 110 70-99 [facility] [id number] 21:39:00 Test Item Value Reference Range Interpretation Comments BUN (test code = BUN) 52 7-22 [facility] [id number] 21:39:00 Test Item Value Reference Range Interpretation Comments Creatinine Lvl (test code = Creatinine 1.77 0.50-1.40 Lvl) [facility] [id number] 21:39:00 Test Item Value Reference Range Interpretation Comments Sodium Lvl (test code = Sodium Lvl) 139 135-145 [facility] [id number] 21:39:00 Test Item Value Reference Range Interpretation Comments Potassium Lvl (test code = Potassium 4.5 3.5-5.1 Lvl) [facility] [id number] 21:39:00 Test Item Value Reference Range Interpretation Comments Chloride Lvl (test code = Chloride Lvl) 114 95-109 [place] 542561-04-20 21:39:00 Test Item Value Reference Range Interpretation Comments CO2 (test code = CO2) 16 24-32 [place] 542561-04-20 21:39:00 Test Item Value Reference Range Interpretation Comments Calcium Lvl (test code = Calcium Lvl) 8.6 8.5-10.5 [place] 542561-04-20 21:39:00 Test Item Value Reference Range Interpretation Comments AGAP (test code = AGAP) 13.5 10.0-20.0 [place] 542561-04-20 21:39:00 Test Item Value Reference Range Interpretation Comments eGFR (test code = eGFR) 27 [facility]2021-04-20 21:39:00 Test Item Value Reference Range Interpretation Comments Total Protein (test code = Total 7.3 6.4-8.4 Protein) [place] 542561-04-20 21:39:00 Test Item Value Reference Range Interpretation Comments Albumin Lvl (test code = Albumin Lvl) 2.9 3.5-5.0 [facility] [id number] 21:39:00 Test Item Value Reference Range Interpretation Comments ALANINE AMINOTRANSFERASE 300 See_Comment [A utomated message] (test code = ALANINE The sys tem which AMINOTRANSFERASE) generated this result transmitted ref erence range: <=65. Th e reference range was not used to int erpret this result as normal/abnormal . [facility] [id number] 21:39:00 Test Item Value Reference Range Interpretation Comments ASPARTATE TRANSAMINASE 251 See_Comment [Aut omated message] (test code = ASPARTATE The s ystem which TRANSAMINASE) generated this result transmitted ref erence range: <=37. Th e reference range was not used to interpr et this result as normal/abnormal . [facility] [id number] 21:39:00 Test Item Value Reference Range Interpretation Comments Alk Phos (test code = Alk Phos) 301 39-136 [facility]2021-04-20 21:39:00 Test Item Value Reference Range Interpretation Comments Bili Total (test code = Bili Total) 0.5 0.2-1.3 [place] 542561-04-20 21:39:00 Test Item Value Reference Range Interpretation Comments Bili Direct (test code 0.2 See_Comment [Aut omated message] The = Bili Direct) system which generated this result tra nsmitted reference range : <=0.3. The reference r patria was not used to int erpret this result as josi l/abnormal. [place] 542561-04-20 21:39:00 Test Item Value Reference Range Interpretation Comments Bili Indirect (test 0.3 See_Comment [Automa rosendo message] The code = Bili Indirect) system which generated this result tra nsmitted reference range : <=1.0. The reference r patria was not used to int erpret this result as normal/abnormal . [place] 542561-04-20 21:39:00 Test Item Value Reference Range Interpretation Comments Globulin (test code = Globulin) 4.4 2.7-4.2 [place] 542561-04-20 21:39:00 Test Item Value Reference Range Interpretation Comments A/G Ratio (test code = A/G Ratio) 0.7 1 0.7-1.6 [place] 542561-04-20 21:39:00 Test Item Value Reference Range Interpretation Comments Lactic Acid Lvl (test code = Lactic 1.7 0.5-2.2 Acid Lvl) [place] 519361-04-20 21:39:00 Test Item Value Reference Range Interpretation Comments WBC X 10x3 (test code = WBC X 10x3) 6.1 3.7-10.4 [place] 519361-04-20 21:39:00 Test Item Value Reference Range Interpretation Comments RBC X 10x6 (test code = RBC X 10x6) 3.88 4.20-5.40 [place] 519361-04-20 21:39:00 Test Item Value Reference Range Interpretation Comments Hgb (test code = Hgb) 13.0 12.0-16.0 [place] [address]-04-20 21:39:00 Test Item Value Reference Range Interpretation Comments Hct (test code = Hct) 40.9 36.0-48.0 [place] 519361-04-20 21:39:00 Test Item Value Reference Range Interpretation Comments MCV (test code = MCV) 105.5 80.0-98.0 [facility]KesqxnfYHJGUVNXZY4142-39-53 21:39:00 Test Item Value Reference Range Interpretation Comments MCH (test code = MCH) 33.6 pg 27.0-31.0 [facility] CenterPngbyrtVUWLXNEGFS5720-71-50 21:39:00 Test Item Value Reference Range Interpretation Comments MCHC (test code = MCHC) 31.8 32.0-36.0 [facility] CenterThggkmqUAQZVIWFNS6941-95-55 21:39:00 Test Item Value Reference Range Interpretation Comments RDW (test code = RDW) 15.6 11.5-14.5 [facility] CenterXfwpwjqSRVPHZKLFS0521-33-27 21:39:00 Test Item Value Reference Range Interpretation Comments Platelet (test code = Platelet) 217 133-450 [facility] CenterRromzuyBCPZAIBTKZ3525-64-35 21:39:00 Test Item Value Reference Range Interpretation Comments MPV (test code = MPV) 7.3 7.4-10.4 [facility] CenterGcrrvdqEIHXLFSMNW9927-98-04 21:39:00 Test Item Value Reference Range Interpretation Comments PT (test code = PT) 17.4 s 12.0-14.7 [facility] CenterYiblzlnCYXYBKDRUK6005-17-91 21:39:00 Test Item Value Reference Range Interpretation Comments INR (test code = INR) 1.46 1 0.85-1.17 [facility] CenterTpbpzkhUEXBVZBWXD8589-61-25 21:39:00 Test Item Value Reference Range Interpretation Comments PTT (test code = PTT) 43.0 s 22.9-35.8 [facility] CenterZgdchvgSDQONGHZHB3316-97-39 21:39:00 Test Item Value Reference Range Interpretation Comments Segs (test code = Segs) 84.4 45.0-75.0 [facility] CenterBkuznxpNNNXSXBTYJ8595-59-71 21:39:00 Test Item Value Reference Range Interpretation Comments Lymphocytes (test code = Lymphocytes) 8.4 20.0-40.0 [facility] CenterRjltdlaVKIPBJKXTF5707-65-45 21:39:00 Test Item Value Reference Range Interpretation Comments Monocytes (test code = Monocytes) 6.5 2.0-12.0 [facility] CenterVkzmwscTTERBSZMSR3914-69-33 21:39:00 Test Item Value Reference Range Interpretation Comments Eosinophils (test code = 0.3 See_Comment [A utomated message] The Eosinophils) system which ge nerated this result tra nsmitted reference range : <=4.0. The reference r patria was not used to int erpret this result as normal/abnormal . [facility] ResourcesFljrcjsMOYZHFAKWL3657-90-07 21:39:00 Test Item Value Reference Range Interpretation Comments Basophils (test code = 0.4 See_Comment [Aut omated message] The Basophils) system which ge nerated this result tra nsmitted reference range : <=1.0. The reference r patria was not used to int erpret this result as normal/abnormal . [facility] ResourcesRupedivJUHRTRWDWI1689-84-63 21:39:00 Test Item Value Reference Range Interpretation Comments Neutrophils # (test code = Neutrophils 5.1 1.5-8.1 #) [facility] HospitalJbenpoaIALDMWOXLG9334-57-48 21:39:00 Test Item Value Reference Range Interpretation Comments Lymphocytes # (test code = Lymphocytes 0.5 1.0-5.5 #) [facility] ServicesJyyowdkWDAIHHZZDF1572-35-60 21:39:00 Test Item Value Reference Range Interpretation Comments Monocytes # (test code 0.4 See_Comment [Aut omated message] The = Monocytes #) system which generated this result tra nsmitted reference range : <=0.8. The reference r patria was not used to int erpret this result as normal/abnormal . [facility] ResourcesItpdoikAEWCCQOJSR4888-42-75 21:39:00 Test Item Value Reference Range Interpretation Comments Macrocyte (test code = 1+ *ABN*(02/28/21 Macrocyte) 4:39 PM) [facility] ResourcesSaperionCARWonderflowAC [id number] 21:39:00 Test Item Value Reference Range Interpretation Comments Total CK (test code = Total CK) 63 12-191 [facility] SYCSEZG1240-05-03 21:39:00 Test Item Value Reference Range Interpretation Comments Troponin-I (test code no gt See_Comment [Auto mated message] The = Troponin-I) system which g enerated this result transmit rosendo reference range : <=0.40. The reference r patria was not used to interpr et this result as josi l/abnormal. [facility] ResourcesAboutUs.org [id number] 21:39:00 Test Item Value Reference Range Interpretation Comments Glucose Lvl (test code = Glucose Lvl) 110 70-99 [facility]2021-04-20 21:39:00 Test Item Value Reference Range Interpretation Comments BUN (test code = BUN) 52 7-22 [place] 542561-04-20 21:39:00 Test Item Value Reference Range Interpretation Comments Creatinine Lvl (test code = Creatinine 1.77 0.50-1.40 Lvl) [facility]2021-04-20 21:39:00 Test Item Value Reference Range Interpretation Comments Sodium Lvl (test code = Sodium Lvl) 139 135-145 [place] 542561-04-20 21:39:00 Test Item Value Reference Range Interpretation Comments Potassium Lvl (test code = Potassium 4.5 3.5-5.1 Lvl) [facility]2021-04-20 21:39:00 Test Item Value Reference Range Interpretation Comments Chloride Lvl (test code = Chloride Lvl) 114 95-109 [facility]2021-04-20 21:39:00 Test Item Value Reference Range Interpretation Comments CO2 (test code = CO2) 16 24-32 [facility]2021-04-20 21:39:00 Test Item Value Reference Range Interpretation Comments Calcium Lvl (test code = Calcium Lvl) 8.6 8.5-10.5 [facility]2021-04-20 21:39:00 Test Item Value Reference Range Interpretation Comments AGAP (test code = AGAP) 13.5 10.0-20.0 [facility]2021-04-20 21:39:00 Test Item Value Reference Range Interpretation Comments eGFR (test code = eGFR) 27 [facility]2021-04-20 21:39:00 Test Item Value Reference Range Interpretation Comments Total Protein (test code = Total 7.3 6.4-8.4 Protein) [facility]2021-04-20 21:39:00 Test Item Value Reference Range Interpretation Comments Albumin Lvl (test code = Albumin Lvl) 2.9 3.5-5.0 [facility]2021-04-20 21:39:00 Test Item Value Reference Range Interpretation Comments ALANINE AMINOTRANSFERASE 300 See_Comment [A utomated message] (test code = ALANINE The sys tem which AMINOTRANSFERASE) generated this result transmitted ref erence range: <=65. Th e reference range was not used to int erpret this result as normal/abnormal . [place] 542561-04-20 21:39:00 Test Item Value Reference Range Interpretation Comments ASPARTATE TRANSAMINASE 251 See_Comment [Aut omated message] (test code = ASPARTATE The s ystem which TRANSAMINASE) generated this result transmitted ref erence range: <=37. Th e reference range was not used to interpr et this result as normal/abnormal . [place] 542561-04-20 21:39:00 Test Item Value Reference Range Interpretation Comments Alk Phos (test code = Alk Phos) 301 39-136 [facility]2021-04-20 21:39:00 Test Item Value Reference Range Interpretation Comments Bili Total (test code = Bili Total) 0.5 0.2-1.3 [place] 542561-04-20 21:39:00 Test Item Value Reference Range Interpretation Comments Bili Direct (test code 0.2 See_Comment [Aut omated message] The = Bili Direct) system which generated this result tra nsmitted reference range : <=0.3. The reference r patria was not used to int erpret this result as josi l/abnormal. [facility] [id number] 21:39:00 Test Item Value Reference Range Interpretation Comments Bili Indirect (test 0.3 See_Comment [Automa rosendo message] The code = Bili Indirect) system which generated this result tra nsmitted reference range : <=1.0. The reference r patria was not used to int erpret this result as normal/abnormal . [facility]2021-04-20 21:39:00 Test Item Value Reference Range Interpretation Comments Globulin (test code = Globulin) 4.4 2.7-4.2 [place] 542561-04-20 21:39:00 Test Item Value Reference Range Interpretation Comments A/G Ratio (test code = A/G Ratio) 0.7 1 0.7-1.6 [place] 542561-04-20 21:39:00 Test Item Value Reference Range Interpretation Comments Lactic Acid Lvl (test code = Lactic 1.7 0.5-2.2 Acid Lvl) [facility] CenterHcswtzrPADRICKYIL1430-47-32 21:39:00 Test Item Value Reference Range Interpretation Comments WBC X 10x3 (test code = WBC X 10x3) 6.1 3.7-10.4 [facility] CenterVxibxriLCNQCKOHBH1115-22-99 21:39:00 Test Item Value Reference Range Interpretation Comments RBC X 10x6 (test code = RBC X 10x6) 3.88 4.20-5.40 [facility] CenterIusmoxjCUAHNVJLVY0279-62-65 21:39:00 Test Item Value Reference Range Interpretation Comments Hgb (test code = Hgb) 13.0 12.0-16.0 [facility] CenterKsgqzjrXVCOZHJBSX4316-72-37 21:39:00 Test Item Value Reference Range Interpretation Comments Hct (test code = Hct) 40.9 36.0-48.0 [facility] CenterCusxoitVWXYBUBXLW5201-70-50 21:39:00 Test Item Value Reference Range Interpretation Comments MCV (test code = MCV) 105.5 80.0-98.0 [facility] CenterKxyixneUMTGMGIZAP0987-07-90 21:39:00 Test Item Value Reference Range Interpretation Comments MCH (test code = MCH) 33.6 pg 27.0-31.0 [facility] CenterSdelxzeWJTEVAQEXV2573-79-96 21:39:00 Test Item Value Reference Range Interpretation Comments MCHC (test code = MCHC) 31.8 32.0-36.0 [facility] CenterFkgotouOVSOCIEQGJ8532-56-94 21:39:00 Test Item Value Reference Range Interpretation Comments RDW (test code = RDW) 15.6 11.5-14.5 [facility] CenterIwonjwdNTUGFKJJEG3148-96-52 21:39:00 Test Item Value Reference Range Interpretation Comments Platelet (test code = Platelet) 217 133-450 [facility] CenterTyvmpwcVXADLXRBQU6289-43-09 21:39:00 Test Item Value Reference Range Interpretation Comments MPV (test code = MPV) 7.3 7.4-10.4 [facility] CenterMudfkshOYQZNSBKJL0352-97-29 21:39:00 Test Item Value Reference Range Interpretation Comments PT (test code = PT) 17.4 s 12.0-14.7 [facility] CenterVxumewoLSJTEFLMGI1411-72-77 21:39:00 Test Item Value Reference Range Interpretation Comments INR (test code = INR) 1.46 1 0.85-1.17 [facility] CenterRutmaphBOJECTVDOC0809-53-08 21:39:00 Test Item Value Reference Range Interpretation Comments PTT (test code = PTT) 43.0 s 22.9-35.8 [place] 519361-04-20 21:39:00 Test Item Value Reference Range Interpretation Comments Segs (test code = Segs) 84.4 45.0-75.0 [place] 519361-04-20 21:39:00 Test Item Value Reference Range Interpretation Comments Lymphocytes (test code = Lymphocytes) 8.4 20.0-40.0 [place] 519361-04-20 21:39:00 Test Item Value Reference Range Interpretation Comments Monocytes (test code = Monocytes) 6.5 2.0-12.0 [place] 519361-04-20 21:39:00 Test Item Value Reference Range Interpretation Comments Eosinophils (test code = 0.3 See_Comment [A utomated message] The Eosinophils) system which ge nerated this result tra nsmitted reference range : <=4.0. The reference r patria was not used to int erpret this result as normal/abnormal . [facility] CenterWqmuwlxNEQHFYKVPE7933-62-40 21:39:00 Test Item Value Reference Range Interpretation Comments Basophils (test code = 0.4 See_Comment [Aut omated message] The Basophils) system which ge nerated this result tra nsmitted reference range : <=1.0. The reference r patria was not used to int erpret this result as normal/abnormal . [facility] CenterMrbuctnPLXOYOLMMJ5842-95-22 21:39:00 Test Item Value Reference Range Interpretation Comments Neutrophils # (test code = Neutrophils 5.1 1.5-8.1 #) [facility] CenterSrbzimkTBEOLGYASG5362-93-13 21:39:00 Test Item Value Reference Range Interpretation Comments Lymphocytes # (test code = Lymphocytes 0.5 1.0-5.5 #) [place] 519361-04-20 21:39:00 Test Item Value Reference Range Interpretation Comments Monocytes # (test code 0.4 See_Comment [Aut omated message] The = Monocytes #) system which generated this result tra nsmitted reference range : <=0.8. The reference r patria was not used to int erpret this result as normal/abnormal . [facility] CenterJublcgqMJJTUMDHNT1491-68-26 21:39:00 Test Item Value Reference Range Interpretation Comments Macrocyte (test code = 1+ *ABN*(02/28/21 Macrocyte) 4:39 PM) [facility] [employer]AC NPJSPYZ1512-92-95 21:39:00 Test Item Value Reference Range Interpretation Comments Total CK (test code = Total CK) 63 12-191 [facility] ResourcesAgito NetworksAC EKXEKUE4240-75-45 21:39:00 Test Item Value Reference Range Interpretation Comments Troponin-I (test code no gt See_Comment [Auto mated message] The = Troponin-I) system which g enerated this result transmit rosendo reference range : <=0.40. The reference r patria was not used to interpr et this result as josi l/abnormal. [facility] [employer] [id number] 21:39:00 Test Item Value Reference Range Interpretation Comments Glucose Lvl (test code = Glucose Lvl) 110 70-99 [facility] ResourcesAboutUs.org OGHCF1882-26-60 21:39:00 Test Item Value Reference Range Interpretation Comments BUN (test code = BUN) 52 7-22 [facility] ResourcesAboutUs.org NHUQP4137-86-60 21:39:00 Test Item Value Reference Range Interpretation Comments Creatinine Lvl (test code = Creatinine 1.77 0.50-1.40 Lvl) [facility] [employer] [id number] 21:39:00 Test Item Value Reference Range Interpretation Comments Sodium Lvl (test code = Sodium Lvl) 139 135-145 [facility] [employer] [id number] 21:39:00 Test Item Value Reference Range Interpretation Comments Potassium Lvl (test code = Potassium 4.5 3.5-5.1 Lvl) [facility] [employer] [id number] 21:39:00 Test Item Value Reference Range Interpretation Comments Chloride Lvl (test code = Chloride Lvl) 114 95-109 [facility] [employer] [id number] 21:39:00 Test Item Value Reference Range Interpretation Comments CO2 (test code = CO2) 16 24-32 [facility] ResourcesAboutUs.org [id number] 21:39:00 Test Item Value Reference Range Interpretation Comments Calcium Lvl (test code = Calcium Lvl) 8.6 8.5-10.5 [facility] ResourcesAboutUs.org MYCOU0783-26-01 21:39:00 Test Item Value Reference Range Interpretation Comments AGAP (test code = AGAP) 13.5 10.0-20.0 [place] 542561-04-20 21:39:00 Test Item Value Reference Range Interpretation Comments eGFR (test code = eGFR) 27 [place] 542561-04-20 21:39:00 Test Item Value Reference Range Interpretation Comments Total Protein (test code = Total 7.3 6.4-8.4 Protein) [address]04-20 21:39:00 Test Item Value Reference Range Interpretation Comments Albumin Lvl (test code = Albumin Lvl) 2.9 3.5-5.0 [place] 542561-04-20 21:39:00 Test Item Value Reference Range Interpretation Comments ALANINE AMINOTRANSFERASE 300 See_Comment [A utomated message] (test code = ALANINE The sys tem which AMINOTRANSFERASE) generated this result transmitted ref erence range: <=65. Th e reference range was not used to int erpret this result as normal/abnormal . [address]04-20 21:39:00 Test Item Value Reference Range Interpretation Comments ASPARTATE TRANSAMINASE 251 See_Comment [Aut omated message] (test code = ASPARTATE The s ystem which TRANSAMINASE) generated this result transmitted ref erence range: <=37. Th e reference range was not used to interpr et this result as normal/abnormal . [place] 542561-04-20 21:39:00 Test Item Value Reference Range Interpretation Comments Alk Phos (test code = Alk Phos) 301 39-136 [place] 542561-04-20 21:39:00 Test Item Value Reference Range Interpretation Comments Bili Total (test code = Bili Total) 0.5 0.2-1.3 [address]04-20 21:39:00 Test Item Value Reference Range Interpretation Comments Bili Direct (test code 0.2 See_Comment [Aut omated message] The = Bili Direct) system which generated this result tra nsmitted reference range : <=0.3. The reference r patria was not used to int erpret this result as josi l/abnormal. [address]04-20 21:39:00 Test Item Value Reference Range Interpretation Comments Bili Indirect (test 0.3 See_Comment [Automa rosendo message] The code = Bili Indirect) system which generated this result tra nsmitted reference range : <=1.0. The reference r patria was not used to int erpret this result as normal/abnormal . [facility] [id number] 21:39:00 Test Item Value Reference Range Interpretation Comments Globulin (test code = Globulin) 4.4 2.7-4.2 [facility]2021-04-20 21:39:00 Test Item Value Reference Range Interpretation Comments A/G Ratio (test code = A/G Ratio) 0.7 1 0.7-1.6 [facility] [id number] 21:39:00 Test Item Value Reference Range Interpretation Comments Lactic Acid Lvl (test code = Lactic 1.7 0.5-2.2 Acid Lvl) [id number] 21:39:00 Test Item Value Reference Range Interpretation Comments WBC X 10x3 (test code = WBC X 10x3) 6.1 3.7-10.4 [facility] CenterHosoeigVYWCTWTCNV1642-40-62 21:39:00 Test Item Value Reference Range Interpretation Comments RBC X 10x6 (test code = RBC X 10x6) 3.88 4.20-5.40 [facility] ServicesFpqipcxEMDCZHCABL5723-29-36 21:39:00 Test Item Value Reference Range Interpretation Comments Hgb (test code = Hgb) 13.0 12.0-16.0 [facility]NwwtgblZUGZBHMINS6288-70-41 21:39:00 Test Item Value Reference Range Interpretation Comments Hct (test code = Hct) 40.9 36.0-48.0 [facility] CenterLbatclkRSGQZGBPPG1706-12-77 21:39:00 Test Item Value Reference Range Interpretation Comments MCV (test code = MCV) 105.5 80.0-98.0 [facility] CenterGfazlttBSYWJTNJVW2592-46-76 21:39:00 Test Item Value Reference Range Interpretation Comments MCH (test code = MCH) 33.6 pg 27.0-31.0 [facility] CenterRmxexyhCSXXUQFBMV8688-62-80 21:39:00 Test Item Value Reference Range Interpretation Comments MCHC (test code = MCHC) 31.8 32.0-36.0 [facility] CenterAyslpanUBVQGKJFDV1264-41-02 21:39:00 Test Item Value Reference Range Interpretation Comments RDW (test code = RDW) 15.6 11.5-14.5 [place] 519361-04-20 21:39:00 Test Item Value Reference Range Interpretation Comments Platelet (test code = Platelet) 217 133-450 [place] 519361-04-20 21:39:00 Test Item Value Reference Range Interpretation Comments MPV (test code = MPV) 7.3 7.4-10.4 [place] 519361-04-20 21:39:00 Test Item Value Reference Range Interpretation Comments PT (test code = PT) 17.4 s 12.0-14.7 [place] 519361-04-20 21:39:00 Test Item Value Reference Range Interpretation Comments INR (test code = INR) 1.46 1 0.85-1.17 [place] 519361-04-20 21:39:00 Test Item Value Reference Range Interpretation Comments PTT (test code = PTT) 43.0 s 22.9-35.8 [place] 519361-04-20 21:39:00 Test Item Value Reference Range Interpretation Comments Segs (test code = Segs) 84.4 45.0-75.0 [place] 519361-04-20 21:39:00 Test Item Value Reference Range Interpretation Comments Lymphocytes (test code = Lymphocytes) 8.4 20.0-40.0 [place] 519361-04-20 21:39:00 Test Item Value Reference Range Interpretation Comments Monocytes (test code = Monocytes) 6.5 2.0-12.0 [facility] CenterJpckczeUNPUUOEGOM3726-14-82 21:39:00 Test Item Value Reference Range Interpretation Comments Eosinophils (test code = 0.3 See_Comment [A utomated message] The Eosinophils) system which ge nerated this result tra nsmitted reference range : <=4.0. The reference r patria was not used to int erpret this result as normal/abnormal . [place] 519361-04-20 21:39:00 Test Item Value Reference Range Interpretation Comments Basophils (test code = 0.4 See_Comment [Aut omated message] The Basophils) system which ge nerated this result tra nsmitted reference range : <=1.0. The reference r patria was not used to int erpret this result as normal/abnormal . [place] 519361-04-20 21:39:00 Test Item Value Reference Range Interpretation Comments Neutrophils # (test code = Neutrophils 5.1 1.5-8.1 #) [facility] ServicesFojrxbqZFDBZIQXBV6752-08-01 21:39:00 Test Item Value Reference Range Interpretation Comments Lymphocytes # (test code = Lymphocytes 0.5 1.0-5.5 #) [place] 519361-04-20 21:39:00 Test Item Value Reference Range Interpretation Comments Monocytes # (test code 0.4 See_Comment [Aut omated message] The = Monocytes #) system which generated this result tra nsmitted reference range : <=0.8. The reference r patria was not used to int erpret this result as normal/abnormal . [facility]OckyqzyBKVEHVOVUQ3749-19-27 21:39:00 Test Item Value Reference Range Interpretation Comments Macrocyte (test code = 1+ *ABN*(02/28/21 Macrocyte) 4:39 PM) [facility] [id number] 21:39:00 Test Item Value Reference Range Interpretation Comments Total CK (test code = Total CK) 63 12-191 [facility] PEHLOVQ2011-04-25 21:39:00 Test Item Value Reference Range Interpretation Comments Troponin-I (test code no gt See_Comment [Auto mated message] The = Troponin-I) system which g enerated this result transmit rosendo reference range : <=0.40. The reference r patria was not used to interpr et this result as josi l/abnormal. [facility] [id number] 21:39:00 Test Item Value Reference Range Interpretation Comments Glucose Lvl (test code = Glucose Lvl) 110 70-99 [facility] [id number] 21:39:00 Test Item Value Reference Range Interpretation Comments BUN (test code = BUN) 52 7-22 [facility] [id number] 21:39:00 Test Item Value Reference Range Interpretation Comments Creatinine Lvl (test code = Creatinine 1.77 0.50-1.40 Lvl) [facility] [id number] 21:39:00 Test Item Value Reference Range Interpretation Comments Sodium Lvl (test code = Sodium Lvl) 139 135-145 [facility] [id number] 21:39:00 Test Item Value Reference Range Interpretation Comments Potassium Lvl (test code = Potassium 4.5 3.5-5.1 Lvl) [facility]2021-04-20 21:39:00 Test Item Value Reference Range Interpretation Comments Chloride Lvl (test code = Chloride Lvl) 114 95-109 [facility]2021-04-20 21:39:00 Test Item Value Reference Range Interpretation Comments CO2 (test code = CO2) 16 24-32 [place] 542561-04-20 21:39:00 Test Item Value Reference Range Interpretation Comments Calcium Lvl (test code = Calcium Lvl) 8.6 8.5-10.5 [facility]2021-04-20 21:39:00 Test Item Value Reference Range Interpretation Comments AGAP (test code = AGAP) 13.5 10.0-20.0 [facility]2021-04-20 21:39:00 Test Item Value Reference Range Interpretation Comments eGFR (test code = eGFR) 27 [place] 542561-04-20 21:39:00 Test Item Value Reference Range Interpretation Comments Total Protein (test code = Total 7.3 6.4-8.4 Protein) [facility]2021-04-20 21:39:00 Test Item Value Reference Range Interpretation Comments Albumin Lvl (test code = Albumin Lvl) 2.9 3.5-5.0 [facility]2021-04-20 21:39:00 Test Item Value Reference Range Interpretation Comments ALANINE AMINOTRANSFERASE 300 See_Comment [A utomated message] (test code = ALANINE The sys tem which AMINOTRANSFERASE) generated this result transmitted ref erence range: <=65. Th e reference range was not used to int erpret this result as normal/abnormal . [place] 542561-04-20 21:39:00 Test Item Value Reference Range Interpretation Comments ASPARTATE TRANSAMINASE 251 See_Comment [Aut omated message] (test code = ASPARTATE The s ystem which TRANSAMINASE) generated this result transmitted ref erence range: <=37. Th e reference range was not used to interpr et this result as normal/abnormal . [facility]2021-04-20 21:39:00 Test Item Value Reference Range Interpretation Comments Alk Phos (test code = Alk Phos) 301 39-136 [place] 542561-04-20 21:39:00 Test Item Value Reference Range Interpretation Comments Bili Total (test code = Bili Total) 0.5 0.2-1.[address]04-20 21:39:00 Test Item Value Reference Range Interpretation Comments Bili Direct (test code 0.2 See_Comment [Aut omated message] The = Bili Direct) system which generated this result tra nsmitted reference range : <=0.3. The reference r patria was not used to int erpret this result as josi l/abnormal. [place] 542561-04-20 21:39:00 Test Item Value Reference Range Interpretation Comments Bili Indirect (test 0.3 See_Comment [Automa rosendo message] The code = Bili Indirect) system which generated this result tra nsmitted reference range : <=1.0. The reference r patria was not used to int erpret this result as normal/abnormal . [place] 542561-04-20 21:39:00 Test Item Value Reference Range Interpretation Comments Globulin (test code = Globulin) 4.4 2.7-4.2 [place] 542561-04-20 21:39:00 Test Item Value Reference Range Interpretation Comments A/G Ratio (test code = A/G Ratio) 0.7 1 0.7-1.6 [address]04-20 21:39:00 Test Item Value Reference Range Interpretation Comments Lactic Acid Lvl (test code = Lactic 1.7 0.5-2.2 Acid Lvl) [place] 519361-04-20 21:39:00 Test Item Value Reference Range Interpretation Comments WBC X 10x3 (test code = WBC X 10x3) 6.1 3.7-10.4 [place] 519361-04-20 21:39:00 Test Item Value Reference Range Interpretation Comments RBC X 10x6 (test code = RBC X 10x6) 3.88 4.20-5.40 [place] 519361-04-20 21:39:00 Test Item Value Reference Range Interpretation Comments Hgb (test code = Hgb) 13.0 12.0-16.0 [place] [address]-04-20 21:39:00 Test Item Value Reference Range Interpretation Comments Hct (test code = Hct) 40.9 36.0-48.0 [facility] CenterIzzggeoHFWZXARTVN4251-78-91 21:39:00 Test Item Value Reference Range Interpretation Comments MCV (test code = MCV) 105.5 80.0-98.0 [facility] CenterMxelkobJAZPLHRHIK0332-81-92 21:39:00 Test Item Value Reference Range Interpretation Comments MCH (test code = MCH) 33.6 pg 27.0-31.0 [facility] CenterMmovvnyKBCFVDPVAQ7993-71-61 21:39:00 Test Item Value Reference Range Interpretation Comments MCHC (test code = MCHC) 31.8 32.0-36.0 [facility] CenterBbmoqrgWMSZALMEFV3923-10-73 21:39:00 Test Item Value Reference Range Interpretation Comments RDW (test code = RDW) 15.6 11.5-14.5 [facility] CenterLxabasjUVVRMVWYBO5236-74-71 21:39:00 Test Item Value Reference Range Interpretation Comments Platelet (test code = Platelet) 217 133-450 [facility] CenterYrfuylkCKIFEMJWAT8780-82-38 21:39:00 Test Item Value Reference Range Interpretation Comments MPV (test code = MPV) 7.3 7.4-10.4 [facility] CenterFfwiiugMZTERRZZHZ5636-24-54 21:39:00 Test Item Value Reference Range Interpretation Comments PT (test code = PT) 17.4 s 12.0-14.7 [facility] CenterSkertujVVYRTWMPSN7889-74-42 21:39:00 Test Item Value Reference Range Interpretation Comments INR (test code = INR) 1.46 1 0.85-1.17 [facility] CenterMztjlcuLVJTPJYIBB1844-71-93 21:39:00 Test Item Value Reference Range Interpretation Comments PTT (test code = PTT) 43.0 s 22.9-35.8 [facility] CenterEckhucePPTNTLKPKC4447-25-42 21:39:00 Test Item Value Reference Range Interpretation Comments Segs (test code = Segs) 84.4 45.0-75.0 [facility] CenterIgzzldvORLWIDKOOM1464-87-47 21:39:00 Test Item Value Reference Range Interpretation Comments Lymphocytes (test code = Lymphocytes) 8.4 20.0-40.0 [facility] CenterJtgtclsLFZIAWTVSY9771-02-20 21:39:00 Test Item Value Reference Range Interpretation Comments Monocytes (test code = Monocytes) 6.5 2.0-12.0 [place] [address]-04-20 21:39:00 Test Item Value Reference Range Interpretation Comments Eosinophils (test code = 0.3 See_Comment [A utomated message] The Eosinophils) system which ge nerated this result tra nsmitted reference range : <=4.0. The reference r patria was not used to int erpret this result as normal/abnormal . [facility] HospitalSxtkivfEUGUZCEOMT9564-92-50 21:39:00 Test Item Value Reference Range Interpretation Comments Basophils (test code = 0.4 See_Comment [Aut omated message] The Basophils) system which ge nerated this result tra nsmitted reference range : <=1.0. The reference r patria was not used to int erpret this result as normal/abnormal . [facility] ResourcesBnvuknoCTXZIPSGNN2545-41-42 21:39:00 Test Item Value Reference Range Interpretation Comments Neutrophils # (test code = Neutrophils 5.1 1.5-8.1 #) [facility] HospitalHjuvkzjLIVKJXEKXC4448-99-92 21:39:00 Test Item Value Reference Range Interpretation Comments Lymphocytes # (test code = Lymphocytes 0.5 1.0-5.5 #) [facility] ServicesMuvicaiLIAYCZUWZR5259-79-10 21:39:00 Test Item Value Reference Range Interpretation Comments Monocytes # (test code 0.4 See_Comment [Aut omated message] The = Monocytes #) system which generated this result tra nsmitted reference range : <=0.8. The reference r patria was not used to int erpret this result as normal/abnormal . [facility] ResourcesHvptuvwJHWWVPCJUA6847-45-13 21:39:00 Test Item Value Reference Range Interpretation Comments Macrocyte (test code = 1+ *ABN*(02/28/21 Macrocyte) 4:39 PM) [facility] ResourcesSaperionCARDIAC [id number] 21:39:00 Test Item Value Reference Range Interpretation Comments Total CK (test code = Total CK) 63 12-191 [facility] [id number] 21:39:00 Test Item Value Reference Range Interpretation Comments Troponin-I (test code no gt See_Comment [Auto mated message] The = Troponin-I) system which g enerated this result transmit rosendo reference range : <=0.40. The reference r patria was not used to interpr et this result as josi l/abnormal. [facility]2021-04-20 21:39:00 Test Item Value Reference Range Interpretation Comments Glucose Lvl (test code = Glucose Lvl) 110 70-99 [facility]2021-04-20 21:39:00 Test Item Value Reference Range Interpretation Comments BUN (test code = BUN) 52 7-22 [facility]2021-04-20 21:39:00 Test Item Value Reference Range Interpretation Comments Creatinine Lvl (test code = Creatinine 1.77 0.50-1.40 Lvl) [facility]2021-04-20 21:39:00 Test Item Value Reference Range Interpretation Comments Sodium Lvl (test code = Sodium Lvl) 139 135-145 [facility]2021-04-20 21:39:00 Test Item Value Reference Range Interpretation Comments Potassium Lvl (test code = Potassium 4.5 3.5-5.1 Lvl) [facility]2021-04-20 21:39:00 Test Item Value Reference Range Interpretation Comments Chloride Lvl (test code = Chloride Lvl) 114 95-109 [facility]2021-04-20 21:39:00 Test Item Value Reference Range Interpretation Comments CO2 (test code = CO2) 16 24-32 [facility]2021-04-20 21:39:00 Test Item Value Reference Range Interpretation Comments Calcium Lvl (test code = Calcium Lvl) 8.6 8.5-10.5 [facility]2021-04-20 21:39:00 Test Item Value Reference Range Interpretation Comments AGAP (test code = AGAP) 13.5 10.0-20.0 [facility]2021-04-20 21:39:00 Test Item Value Reference Range Interpretation Comments eGFR (test code = eGFR) 27 [facility]2021-04-20 21:39:00 Test Item Value Reference Range Interpretation Comments Total Protein (test code = Total 7.3 6.4-8.4 Protein) [facility]2021-04-20 21:39:00 Test Item Value Reference Range Interpretation Comments Albumin Lvl (test code = Albumin Lvl) 2.9 3.5-5.0 [place] 542561-04-20 21:39:00 Test Item Value Reference Range Interpretation Comments ALANINE AMINOTRANSFERASE 300 See_Comment [A utomated message] (test code = ALANINE The sys tem which AMINOTRANSFERASE) generated this result transmitted ref erence range: <=65. Th e reference range was not used to int erpret this result as normal/abnormal . [facility] [employer] [id number] 21:39:00 Test Item Value Reference Range Interpretation Comments ASPARTATE TRANSAMINASE 251 See_Comment [Aut omated message] (test code = ASPARTATE The s ystem which TRANSAMINASE) generated this result transmitted ref erence range: <=37. Th e reference range was not used to interpr et this result as normal/abnormal . [facility] [employer] [id number] 21:39:00 Test Item Value Reference Range Interpretation Comments Alk Phos (test code = Alk Phos) 301 39-136 [facility] [employer] [id number] 21:39:00 Test Item Value Reference Range Interpretation Comments Bili Total (test code = Bili Total) 0.5 0.2-1.3 [facility] [id number] 21:39:00 Test Item Value Reference Range Interpretation Comments Bili Direct (test code 0.2 See_Comment [Aut omated message] The = Bili Direct) system which generated this result tra nsmitted reference range : <=0.3. The reference r patria was not used to int erpret this result as josi l/abnormal. [facility] [employer] [id number] 21:39:00 Test Item Value Reference Range Interpretation Comments Bili Indirect (test 0.3 See_Comment [Automa rosendo message] The code = Bili Indirect) system which generated this result tra nsmitted reference range : <=1.0. The reference r patria was not used to int erpret this result as normal/abnormal . [facility] [employer] [id number] 21:39:00 Test Item Value Reference Range Interpretation Comments Globulin (test code = Globulin) 4.4 2.7-4.2 [facility] [id number] 21:39:00 Test Item Value Reference Range Interpretation Comments A/G Ratio (test code = A/G Ratio) 0.7 1 0.7-1.6 [facility] [id number] 21:39:00 Test Item Value Reference Range Interpretation Comments Lactic Acid Lvl (test code = Lactic 1.7 0.5-2.2 Acid Lvl) [facility] CenterIazbbioALUJJNOXHN5875-76-00 21:39:00 Test Item Value Reference Range Interpretation Comments WBC X 10x3 (test code = WBC X 10x3) 6.1 3.7-10.4 [facility] CenterMckrjhlOKBGWZAIFR6654-43-14 21:39:00 Test Item Value Reference Range Interpretation Comments RBC X 10x6 (test code = RBC X 10x6) 3.88 4.20-5.40 [facility] CenterYwknapqWSWVVUTLQG1862-25-20 21:39:00 Test Item Value Reference Range Interpretation Comments Hgb (test code = Hgb) 13.0 12.0-16.0 [place] 519361-04-20 21:39:00 Test Item Value Reference Range Interpretation Comments Hct (test code = Hct) 40.9 36.0-48.0 [place] 519361-04-20 21:39:00 Test Item Value Reference Range Interpretation Comments MCV (test code = MCV) 105.5 80.0-98.0 [facility] CenterYthcfubTLDJLSMNJI6698-51-38 21:39:00 Test Item Value Reference Range Interpretation Comments MCH (test code = MCH) 33.6 pg 27.0-31.0 [facility] CenterSqkiuiyUDFNEMLVOW0407-71-34 21:39:00 Test Item Value Reference Range Interpretation Comments MCHC (test code = MCHC) 31.8 32.0-36.0 [facility] CenterDkuaoeoHVYKDLCTIB0594-38-28 21:39:00 Test Item Value Reference Range Interpretation Comments RDW (test code = RDW) 15.6 11.5-14.5 [facility] CenterWotfqrzUDXXQCGJOI5455-77-96 21:39:00 Test Item Value Reference Range Interpretation Comments Platelet (test code = Platelet) 217 133-450 [facility] CenterGcixzspRTIQOSOTIP0196-05-88 21:39:00 Test Item Value Reference Range Interpretation Comments MPV (test code = MPV) 7.3 7.4-10.4 [place] 519361-04-20 21:39:00 Test Item Value Reference Range Interpretation Comments PT (test code = PT) 17.4 s 12.0-14.7 [facility] CenterQcxsamcVHHYSUGWEN2535-80-29 21:39:00 Test Item Value Reference Range Interpretation Comments INR (test code = INR) 1.46 1 0.85-1.17 [facility] by [id number] 02:52:00 Test Item Value Reference Range Interpretation Comments Bacteria identified in no growth at 2 days Urine by Culture (test code = 630-4) [facility] W Auto Differential panel - [id number] 03:06:00 Test Item Value Reference Range Interpretation Comments white blood count (test code = 4.7 K/uL 4.0-11.5 white blood count) red blood count (test code = red 2.99 M/uL 3.80-5.20 L blood count) hemoglobin (test code = 10.3 g/dL 10.5-15.7 L hemoglobin) hematocrit (test code = 32.5 % 34.0-50.0 L hematocrit) MCV [Entitic volume] (test code = 108.7 fL 86-100 H 29391-2) mean corpuscular hemoglobin (test 34.4 pg 26.2-33.4 [...] L leukocytes in Blood (test code = 19290-4) Immature granulocytes [#/volume] 0.0 K/uL 0.0-0.03 in Blood (test code = 45514-9) lymphocyte% (test code = 35.7 % 10.0-50.0 lymphocyte%) mono % (test code = mono %) 14.6 % 3.6-12.0 H eos % (test code = eos %) 5.7 % 0.0-5.4 H Basophils/100 leukocytes in 1.1 % 0.1-1.2 Unspecified specimen (test code = 42241-8) Band form neutrophils [#/volume] 2.01 K/uL 1.56-6.13 in Blood (test code = 08741-0) Lymphocytes [#/volume] in 1.7 K/uL 1.18-3.74 Unspecified specimen by Automated count (test code = 23319-6) mono # (test code = mono #) 0.69 K/uL 0.24-0.86 eos # (test code = eos #) 0.27 K/uL 0.04-0.36 basophil # (test code = basophil 0.05 K/uL 0.01-0.08 #) NRBC% (test code = NRBC%) 0 /100 WBC 0-0.2 NRBC# (test code = NRBC#) 0 K/uL [facility] method unspecified - [id number] 03:06:00NeutrophilsBandLymphocyteAtypical LymphMonocyteEosinophilBasophilMetamyelocyteMyelocytePromyelocyteBlastsNucleated Red Blood CellDifferential CommentAbs Neutrophil Count (Man)Abs Lymph Count (Man)Abs Monocyte Count (Man)Abs Eosinophil Count (Man)Abs Basophil Count (Man)Platelet EstimatePlatelet Morphol ogyPolychromasiaHypochromasiaAnisocytosisMicrocytosisMacrocytosisTarget CellsOvalocytesToxic GranulationToxic VacuolationMaWalthall County General HospitalPT/INR 2021-01-26 03:06:00 Test Item Value Reference Range Interpretation Comments prothrombin time (test code = 11.2 seconds 10.3-12.3 prothrombin time) INR in Blood by Coagulation 1.05 assay (test code = 51398-1) [facility]in [id number] 03:06:00 Test Item Value Reference Range Interpretation Comments INR in Blood by Coagulation 27.1 seconds 22.5-37.0 assay (test code = 79147-3) [facility]Basic [facility] 2000 panel - Serum or [id number] 03:06:00 Test Item Value Reference Range Interpretation [...] code = 9.2 mg/dL 8.8-10.2 calcium level) [facility] W Auto Differential panel - [id number] 00:00:00 Test Item Value Reference Range Interpretation Comments white blood count (test code = 4.2 K/uL 4.0-11.5 white blood count) red blood count (test code = red 2.86 M/uL 3.80-5.20 L blood count) hemoglobin (test code = 10.0 g/dL 10.5-15.7 L hemoglobin) hematocrit (test code = 32.4 % 34.0-50.0 L hematocrit) MCV [Entitic volume] (test code = 113.3 fL 86-100 H 04588-2) mean corpuscular hemoglobin (test 35.0 pg 26.2-33.4 [...] L leukocytes in Blood (test code = 70443-6) Immature granulocytes [#/volume] 0.0 K/uL 0.0-0.03 in Blood (test code = 95877-5) lymphocyte% (test code = 39.5 % 10.0-50.0 lymphocyte%) mono % (test code = mono %) 12.0 % 3.6-12.0 eos % (test code = eos %) 6.5 % 0.0-5.4 H Basophils/100 leukocytes in 1.4 % 0.1-1.2 H Unspecified specimen (test code = 74155-8) Band form neutrophils [#/volume] 1.69 K/uL 1.56-6.13 in Blood (test code = 76590-8) Lymphocytes [#/volume] in 1.7 K/uL 1.18-3.74 Unspecified specimen by Automated count (test code = 45932-8) mono # (test code = mono #) 0.50 K/uL 0.24-0.86 eos # (test code = eos #) 0.27 K/uL 0.04-0.36 basophil # (test code = basophil 0.06 K/uL 0.01-0.08 #) NRBC% (test code = NRBC%) 0 /100 WBC 0-0.2 NRBC# (test code = NRBC#) 0 K/uL [facility] HospitalDifferential panel, method unspecified - [id number] 00:00:00NeutrophilsBandLymphocyteAtypical LymphMonocyteEosinophilBasophilMetamyelocyteMyelocytePromyelocyteBlastsNucleated Red Blood CellAbs Neutrophil Count (Man)Abs Lymph Count (Man)Abs Monocyte Count (Man)Abs Eosinophil Count (Man)Abs Basophil Count (Man)Platelet EstimatePlatelet MorphologyPolychromasiaHypo chromasiaPoikilocytosisAnisocytosisSchistocytesOvalocytesToxic GranulationHypersegmented PolysToxic VacuolationGiant PlateletsDifferential comment-PMaWalthall County General HospitalUrinalysis complete W Reflex Culture panel - [id number] 00:00:00 Test Item Value Reference Range Interpretation Comments Color of Urine by Auto (test light yellow code = 97372-3) Appearance of Urine (test code clear clear = 5767-9) Glucose [Presence] in Urine by negative negative Automated test strip (test code = 50030-8) Bilirubin.total [Mass/volume] negative negative in Urine (test code = 1978-6) Ketones [Mass/volume] in Urine negative negative by Automated test strip (test code = 26078-9) Specific gravity of Urine by 1.021 1.003-1.030 Automated test strip (test code = 63439-6) blood urine (test code = blood negative negative urine) pH of Urine (test code = 5.500 5-9 2756-5) protein urine (UA) (test code = negative negative protein urine (UA)) Urobilinogen [Presence] in normal 0.2-1.0 Urine (test code = 53621-8) Nitrite [Presence] in Urine by negative negative Test strip (test code = 5802-4) Leukocyte esterase [Presence] =2 negative H in Urine by Automated test strip (test code = 93766-2) Erythrocytes [#/volume] in <1 0-5 Urine by Automated count (test code = 798-9) Leukocytes [#/area] in Urine =1-5 0-5 sediment by Automated count (test code = 44941-1) Epithelial cells [Presence] in <1 0-5 Urine sediment by Light microscopy (test code = 11523-0) Bacteria identified in Urine by none detected none detect Culture (test code = 630-4) Casts [#/area] in Urine none detected none detect sediment by Automated count (test code = 73898-8) urine culture added? (test code yes = urine culture added?) [facility] by [id number] 00:00:00 Test Item Value Reference Range Interpretation Comments Bacteria identified in no growth at 2 days Urine by Culture (test code = 630-4) [facility]Com[facility] 2000 [facility] - Serum or [...] Serum or Plasma (test code = 6768-6) [facility] 1996 panel - Serum or [id number] 00:00:00 Test Item Value Reference Range Interpretation Comments cholesterol level (test code = 101 mg/dL 150-200 L cholesterol level) triglycerides level (test code = 91 mg/dL <150 triglycerides level) HDL cholesterol (test code = HDL 64 mg/dL >65 L cholesterol) LDL cholesterol direct (test code = 25 mg/dL <100 LDL cholesterol direct) cholesterol risk ratio (test code = 1.578 cholesterol risk ratio) [facility] HospitalThyrotropin [Units/volume] in Serum or [id number] 00:00:00 Test Item Value Reference Range Interpretation Comments Thyrotropin [Units/volume] in 2.61 uIU/mL 0.36-3.74 Serum or Plasma (test code = 3016-3) [facility] HospitalUrinal[facility] W Reflex Culture panel - Urine 2020-11-10 11:30:00 Test Item Value Reference Range Interpretation Comments Color of Urine by Auto (test light yellow code = 25535-8) Appearance of Urine (test code clear clear = 5767-9) Glucose [Presence] in Urine by negative negative Automated test strip (test code = 38219-6) Bilirubin.total [Mass/volume] negative negative in Urine (test code = 1978-6) Ketones [Mass/volume] in Urine negative negative by Automated test strip (test code = 24045-3) Specific gravity of Urine by 1.010 1.003-1.030 Automated test strip (test code = 88025-0) blood urine (test code = blood negative negative urine) pH of Urine (test code = 5.000 5-9 2756-5) protein urine (UA) (test code = negative negative protein urine (UA)) Urobilinogen [Presence] in normal 0.2-1.0 Urine (test code = 67750-5) Nitrite [Presence] in Urine by negative negative Test strip (test code = 5802-4) Leukocyte esterase [Presence] negative negative in Urine by Automated test strip (test code = 79450-8) Erythrocytes [#/volume] in <1 0-5 Urine by Automated count (test code = 798-9) Leukocytes [#/area] in Urine =1-5 0-5 sediment by Automated count (test code = 40394-9) Epithelial cells [Presence] in <1 0-5 Urine sediment by Light microscopy (test code = 01412-6) Bacteria identified in Urine by none detected none detect Culture (test code = 630-4) Casts [#/area] in Urine none detected none detect sediment by Automated count (test code = 05205-0) urine culture added? (test code no = urine culture added?) [facility] W Auto Differential panel - [id number] 06:35:00 Test Item Value Reference Range Interpretation Comments white blood count (test code = 7.7 K/uL 4.0-11.5 white blood count) red blood count (test code = red 3.17 M/uL 3.80-5.20 L blood count) hemoglobin (test code = 10.5 g/dL 10.5-15.7 hemoglobin) hematocrit (test code = 33.3 % 34.0-50.0 L hematocrit) MCV [Entitic volume] (test code = 105.0 fL 86-100 H 14553-6) mean corpuscular hemoglobin (test 33.1 pg 26.2-33.4 [...] L leukocytes in Blood (test code = 62497-8) Immature granulocytes [#/volume] 0.0 K/uL 0.0-0.03 in Blood (test code = 03489-9) lymphocyte% (test code = 37.7 % 10.0-50.0 lymphocyte%) mono % (test code = mono %) 11.7 % 3.6-12.0 eos % (test code = eos %) 5.8 % 0.0-5.4 H Basophils/100 leukocytes in 0.8 % 0.1-1.2 Unspecified specimen (test code = 26969-0) Band form neutrophils [#/volume] 3.38 K/uL 1.56-6.13 in Blood (test code = 77083-9) Lymphocytes [#/volume] in 2.9 K/uL 1.18-3.74 Unspecified specimen by Automated count (test code = 48362-7) mono # (test code = mono #) 0.90 K/uL 0.24-0.86 H eos # (test code = eos #) 0.45 K/uL 0.04-0.36 H basophil # (test code = basophil 0.06 K/uL 0.01-0.08 #) NRBC% (test code = NRBC%) 0 /100 WBC 0-0.2 NRBC# (test code = NRBC#) 0 K/uL [facility] GroupDifferential panel, method unspecified - [id number] 06:35:00NeutrophilsBandLymphocyteAtypical LymphMonocyteEosinophilBasophilMetamyelocyteMyelocyteNucleated RedBlood CellDifferential CommentPlatelet EstimatePlatelet MorphologyPoikilocytosisAnisocytosisOvalocytesToxic GranulationBurr CellsHypersegmented PolysToxic VacuolationSmudge CellsDifferential comment-P [facility] HospitalCom[facility] 2000 panel - Serum or [...] Serum or Plasma (test code = 6768-6) [facility] HospitalLipid 1996 panel - Serum or [id number] 06:35:00 Test Item Value Reference Range Interpretation Comments cholesterol level (test code = 145 mg/dL 150-200 L cholesterol level) triglycerides level (test code = 114 mg/dL <150 triglycerides level) HDL cholesterol (test code = HDL 95 mg/dL >65 cholesterol) LDL cholesterol direct (test code = 31 mg/dL <100 LDL cholesterol direct) cholesterol risk ratio (test code = 1.526 cholesterol risk ratio) [facility] W Auto Differential panel - [id number] 02:34:00 Test Item Value Reference Range Interpretation Comments white blood count (test code = 5.9 K/uL 4.0-11.5 white blood count) red blood count (test code = red 3.29 M/uL 3.80-5.20 L blood count) hemoglobin (test code = 10.7 g/dL 10.5-15.7 hemoglobin) hematocrit (test code = 33.2 % 34.0-50.0 L hematocrit) MCV [Entitic volume] (test code = 100.9 fL 86-100 H 54903-8) mean corpuscular hemoglobin (test 32.5 pg 26.2-33.4 [...] L leukocytes in Blood (test code = 45201-5) Immature granulocytes [#/volume] 0.0 K/uL 0.0-0.03 in Blood (test code = 38456-9) lymphocyte% (test code = 36.9 % 10.0-50.0 lymphocyte%) mono % (test code = mono %) 15.6 % 3.6-12.0 H eos % (test code = eos %) 5.6 % 0.0-5.4 H Basophils/100 leukocytes in 1.0 % 0.1-1.2 Unspecified specimen (test code = 37554-1) Band form neutrophils [#/volume] 2.38 K/uL 1.56-6.13 in Blood (test code = 73373-8) Lymphocytes [#/volume] in 2.2 K/uL 1.18-3.74 Unspecified specimen by Automated count (test code = 07298-5) mono # (test code = mono #) 0.91 K/uL 0.24-0.86 H eos # (test code = eos #) 0.33 K/uL 0.04-0.36 basophil # (test code = basophil 0.06 K/uL 0.01-0.08 #) NRBC% (test code = NRBC%) 0 /100 WBC 0-0.2 NRBC# (test code = NRBC#) 0 K/uL [facility] HospitalDifferential panel, method unspecified - [id number] 02:34:00NeutrophilsBandLymphocyteAtypical LymphMonocyteEosinophilBasophilPlatelet EstimatePlatelet Morphology PoikilocytosisAnisocytosisMacrocytosisTear Drop CellsStomatocyteRouleauSmudge CellsDifferential comment-[facility] HospitalUrinalysis complete W Reflex Culture panel - [id number] 02:34:00 Test Item Value Reference Range Interpretation Comments Color of Urine by Auto (test light yellow code = 31529-1) Appearance of Urine (test code clear clear = 5767-9) Glucose [Presence] in Urine by negative negative Automated test strip (test code = 68938-7) Bilirubin.total [Mass/volume] negative negative in Urine (test code = 1978-6) Ketones [Mass/volume] in Urine negative negative by Automated test strip (test code = 47217-1) Specific gravity of Urine by 1.009 1.003-1.030 Automated test strip (test code = 79998-9) blood urine (test code = blood negative negative urine) pH of Urine (test code = 5.500 5-9 2756-5) protein urine (UA) (test code = negative negative protein urine (UA)) Urobilinogen [Presence] in normal 0.2-1.0 Urine (test code = 11258-4) Nitrite [Presence] in Urine by negative negative Test strip (test code = 5802-4) Leukocyte esterase [Presence] negative negative in Urine by Automated test strip (test code = 79440-6) Erythrocytes [#/volume] in <1 0-5 Urine by Automated count (test code = 798-9) Leukocytes [#/area] in Urine <1 0-5 sediment by Automated count (test code = 32655-8) Epithelial cells [Presence] in <1 0-5 Urine sediment by Light microscopy (test code = 18373-9) Bacteria identified in Urine by none detected none detect Culture (test code = 630-4) Casts [#/area] in Urine none detected none detect sediment by Automated count (test code = 56074-6) urine culture added? (test code no = urine culture added?) [facility] metabolic 2000 panel - Serum or [id number] 02:34:00 Test Item Value Reference Range Interpretation [...] code = 9.2 mg/dL 8.8-10.2 calcium level) [facility] HospitalThyrotropin [Units/volume] in Serum or [id number] 02:34:00 Test Item Value Reference Range Interpretation Comments Thyrotropin [Units/volume] in 47.41 uIU/mL 0.36-3.74 H Serum or Plasma (test code = 3016-3) [facility] HospitalBLOOD [id number] 07:25:00 Test Item Value Reference Range Interpretation Comments Culture Observations (test NO GROWTH AFTER 5 code = COB1) DAYS BLOOD [id number] 07:25:00 Test Item Value Reference Range Interpretation Comments Culture Observations (test NO GROWTH AFTER 5 code = COB1) DAYS CBC (INCLUDES AUTOMATED DIFFERENTIAL)2020-07-19 04:47:00 Test Item Value Reference Range Interpretation Comments WBC (test code = WBC) 5.8 10\\S\\3/uL 4.5-11.0 RBC (test code = RBC) 2.88 10\\S\\6/uL 3.80-5.80 L HGB (test code = HBG) 9.6 g/dL 12.0-15.5 L HCT (test code = HCT) 29.7 % 35.0-44.0 L MCV (test code = MCV) 103.1 fL 81.0-99.0 H MCH (test code = MCH) 33.3 pg 27.0-31.0 H MCHC (test code = MCHC) 32.3 g/dL 32.0-36.0 RDW (test code = RDW) 16.9 % 11.5-14.5 H PLT (test code = PLT) 209 10\\S\\3/uL 130-400 MPV (test code = MPV) 9.4 fL 9.4-12.4 NEUTROP # (test code = NE#) 2.7 10\\S\\3/uL 1.6-8.0 LYMPH # (test code = LY#) 1.9 10\\S\\3/uL 1.1-3.5 MONOCYTE # (test code = MO#) 0.7 10\\S\\3/uL 0.0-1.1 EOSINOPH # (test code = EO#) 0.3 10\\S\\3/uL 0.0-0.7 BASOPHIL # (test code = BA#) 0.0 10\\S\\3/uL 0.0-0.3 IG # (test code = IG#) 0.01 10\\S\\3/uL 0.00-0.06 NRBC # (test code = NRBC#) 0.00 10\\S\\3/uL 0.00-0.01 NEUTROPH % (test code = NE%) [...] Comments WBC (test code = WBC) 6.9 10\\S\\3/uL 4.5-11.0 RBC (test code = RBC) 2.93 10\\S\\6/uL 3.80-5.80 L HGB (test code = HBG) 9.7 g/dL 12.0-15.5 L HCT (test code = HCT) 30.0 % 35.0-44.0 L MCV (test code = MCV) 102.4 fL 81.0-99.0 H MCH (test code = MCH) 33.1 pg 27.0-31.0 H MCHC (test code = MCHC) 32.3 g/dL 32.0-36.0 RDW (test code = RDW) 17.2 % 11.5-14.5 H PLT (test code = PLT) 191 10\\S\\3/uL 130-400 MPV (test code = MPV) 9.3 fL 9.4-12.4 L NEUTROP # (test code = NE#) 3.9 10\\S\\3/uL 1.6-8.0 LYMPH # (test code = LY#) 1.9 10\\S\\3/uL 1.1-3.5 MONOCYTE # (test code = MO#) 0.7 10\\S\\3/uL 0.0-1.1 EOSINOPH # (test code = EO#) 0.3 10\\S\\3/uL 0.0-0.7 BASOPHIL # (test code = BA#) 0.0 10\\S\\3/uL 0.0-0.3 IG # (test code = IG#) 0.03 10\\S\\3/uL 0.00-0.06 NRBC # (test code = NRBC#) 0.00 10\\S\\3/uL 0.00-0.01 NEUTROPH % (test code = NE%) [...] (test code = RBCMOR) NORMAL BASIC METABOLIC [id number] 05:31:00 Test Item Value Reference Range Interpretation [...] 03E) GFR (test code = GFR) 50 mL/min/1.73m\\S\\2 >=90 L GFR 58 mL/min/1.73m\\S\\2 >=90 L (test code = GFRAA) EGFR (test code = eGFR BY CKD-EPI EGFR) CALCULATION IS NOT RECOMMENDED FOR PATIENTS UNDER 18 YEARS OF AGE. BUN/CREA (test code = 11 12-20 L BCR) CALCIUM (test code = 8.1 mg/dL 8.3-9.5 L 09D) IRON/TIBC/IRON [id number] 06:51:00 Test Item Value Reference Range Interpretation Comments IRON (test code = 46B) 17 ug/dL 50-170 L TIBC (test code = 79B) 231 ug/dL 250-400 L FE% SAT (test code = ISAT) 7.4 % 15.0-50.0 L CBC (INCLUDES AUTOMATED DIFFERENTIAL)2020-07-17 06:12:00 Test Item Value Reference Range Interpretation Comments WBC (test code = WBC) 9.4 10\\S\\3/uL 4.5-11.0 RBC (test code = RBC) 2.41 10\\S\\6/uL 3.80-5.80 L HGB (test code = HBG) 8.3 g/dL 12.0-15.5 L HCT (test code = HCT) 25.6 % 35.0-44.0 L MCV (test code = MCV) 106.2 fL 81.0-99.0 H MCH (test code = MCH) 34.4 pg 27.0-31.0 H MCHC (test code = MCHC) 32.4 g/dL 32.0-36.0 RDW (test code = RDW) 15.6 % 11.5-14.5 H PLT (test code = PLT) 174 10\\S\\3/uL 130-400 MPV (test code = MPV) 9.2 fL 9.4-12.4 L NEUTROP # (test code = NE#) 6.3 10\\S\\3/uL 1.6-8.0 LYMPH # (test code = LY#) 2.0 10\\S\\3/uL 1.1-3.5 MONOCYTE # (test code = MO#) 0.8 10\\S\\3/uL 0.0-1.1 EOSINOPH # (test code = EO#) 0.2 10\\S\\3/uL 0.0-0.7 BASOPHIL # (test code = BA#) 0.0 10\\S\\3/uL 0.0-0.3 IG # (test code = IG#) 0.03 10\\S\\3/uL 0.00-0.06 NRBC # (test code = NRBC#) 0.00 10\\S\\3/uL 0.00-0.01 NEUTROPH % (test code = NE%) [...] (test code = RBCMOR) NORMAL BASIC METABOLIC [id number] 06:09:00 Test Item Value Reference Range Interpretation [...] 03E) GFR (test code = GFR) 56 mL/min/1.73m\\S\\2 >=90 L GFR 65 mL/min/1.73m\\S\\2 >=90 L (test code = GFRAA) EGFR (test code = eGFR BY CKD-EPI EGFR) CALCULATION IS NOT RECOMMENDED FOR PATIENTS UNDER 18 YEARS OF AGE. BUN/CREA (test code = 14 12-20 BCR) CALCIUM (test code = 7.8 mg/dL 8.3-9.5 L 09D) LACTIC [id number] 06:08:00 Test Item Value Reference Range Interpretation Comments LACTIC ACD (test code = LA) 0.5 mmol/L 0.4-2.0 DIRECT STREP GROUP [id number] 11:43:00 Test Item Value Reference Range Interpretation Comments Culture Observations NO BETA HEMOLYTIC (test code = COB1) STREPTOCOCCUS ISOLATED Direct Exam (test code NEGATIVE FOR STREP A = DE1) ANTIGEN CBC (INCLUDES AUTOMATED DIFFERENTIAL)2020-07-16 06:17:00 Test Item Value Reference Range Interpretation Comments WBC (test code = WBC) 13.7 10\\S\\3/uL 4.5-11.0 H RBC (test code = RBC) 2.75 10\\S\\6/uL 3.80-5.80 L HGB (test code = HBG) 9.3 g/dL 12.0-15.5 L HCT (test code = HCT) 29.4 % 35.0-44.0 L MCV (test code = MCV) 106.9 fL 81.0-99.0 H MCH (test code = MCH) 33.8 pg 27.0-31.0 H MCHC (test code = MCHC) 31.6 g/dL 32.0-36.0 L RDW (test code = RDW) 15.7 % 11.5-14.5 H PLT (test code = PLT) 188 10\\S\\3/uL 130-400 MPV (test code = MPV) 9.2 fL 9.4-12.4 L NEUTROP # (test code = NE#) 9.2 10\\S\\3/uL 1.6-8.0 H LYMPH # (test code = LY#) 2.8 10\\S\\3/uL 1.1-3.5 MONOCYTE # (test code = MO#) 1.4 10\\S\\3/uL 0.0-1.1 H EOSINOPH # (test code = EO#) 0.2 10\\S\\3/uL 0.0-0.7 BASOPHIL # (test code = BA#) 0.1 10\\S\\3/uL 0.0-0.3 IG # (test code = IG#) 0.06 10\\S\\3/uL 0.00-0.06 NRBC # (test code = NRBC#) 0.00 10\\S\\3/uL 0.00-0.01 NEUTROPH % (test code = NE%) [...] (test code = RBCMOR) NORMAL BASIC METABOLIC [id number] 06:13:00 Test Item Value Reference Range Interpretation [...] 03E) GFR (test code = GFR) 36 mL/min/1.73m\\S\\2 >=90 L GFR 41 mL/min/1.73m\\S\\2 >=90 L (test code = GFRAA) EGFR (test code = eGFR BY CKD-EPI EGFR) CALCULATION IS NOT RECOMMENDED FOR PATIENTS UNDER 18 YEARS OF AGE. BUN/CREA (test code = 16 12-20 BCR) CALCIUM (test code = 8.5 mg/dL 8.3-9.5 09D) Arterial Blood [id number] 00:55:00 Test Item Value Reference Range Interpretation [...] FO2Hb (test code = 94.2 % 94.0-100.0 PT8VFEG) FCOHb (test code = 1.4 % 0.0-3.0 FCOHBRT) FMetHb (test code = 0.7 % 0.2-0.6 H FMETHBRT) ABGTEMP (test code = * Temp Corrected Values* ABGTEMP) ABGTEMP (test code = 37.0 ?C ABGTEMP.) pH (T) (test code = 7.349 7.350-7.450 L PHTEMP) pCO2 (T) (test code = 34.4 mmHg 35.0-45.0 L XTF8EWVJ) pO2 (T) (test code = 82.9 mmHg 80.0-110.0 NY1OKQO) Device (test code = ROOM AIR DEVICE) [...] COMMENT (test code = CO) URINALYSIS WITH [id number] 00:26:00 Test Item Value Reference Range Interpretation [...] (test code = USPERM) /HPF NONE LACTIC [id number] 23:18:00 Test Item Value Reference Range Interpretation [...] the FDA and the [employer] (CAP) are more stringent than those required for this test. Therefore, the result should be interpreted with caution and close attention to other clinical and epidemiological data AMMONIA [id number] 22:54:00 Test Item Value Reference Range Interpretation Comments AMMONIA (test code = 54A) 21 umol/L 11-32 CBC (INCLUDES AUTOMATED DIFFERENTIAL)2020-07-14 22:34:00 Test Item Value Reference Range Interpretation Comments WBC (test code = WBC) 13.4 10\\S\\3/uL 4.5-11.0 H RBC (test code = RBC) 3.31 10\\S\\6/uL 3.80-5.80 L HGB (test code = HBG) 11.3 g/dL 12.0-15.5 L HCT (test code = HCT) 34.3 % 35.0-44.0 L MCV (test code = MCV) 103.6 fL 81.0-99.0 H MCH (test code = MCH) 34.1 pg 27.0-31.0 H MCHC (test code = MCHC) 32.9 g/dL 32.0-36.0 RDW (test code = RDW) 15.0 % 11.5-14.5 H PLT (test code = PLT) 276 10\\S\\3/uL 130-400 MPV (test code = MPV) 9.8 fL 9.4-12.4 NEUTROP # (test code = NE#) 11.7 10\\S\\3/uL 1.6-8.0 H LYMPH # (test code = LY#) 0.7 10\\S\\3/uL 1.1-3.5 L MONOCYTE # (test code = MO#) 0.9 10\\S\\3/uL 0.0-1.1 EOSINOPH # (test code = EO#) 0.0 10\\S\\3/uL 0.0-0.7 BASOPHIL # (test code = BA#) 0.1 10\\S\\3/uL 0.0-0.3 IG # (test code = IG#) 0.04 10\\S\\3/uL 0.00-0.06 NRBC # (test code = NRBC#) 0.00 10\\S\\3/uL 0.00-0.01 NEUTROPH % (test code = NE%) [...] RBC MORPH (test code = RBCMOR) NORMAL CHEM [id number] 07:19:00 Test Item Value Reference Range Interpretation Comments Phosphorus (test code = Phosphorus) 3.6 2.5-4.5 [email or web address] [id number] 07:19:00 Test Item Value Reference Range Interpretation Comments Glucose Lvl (test code = Glucose Lvl) 78 70-99 [facility] [id number] 07:19:00 Test Item Value Reference Range Interpretation Comments BUN (test code = BUN) 32 7-22 [email or web address] [id number] 07:19:00 Test Item Value Reference Range Interpretation Comments Creatinine Lvl (test code = Creatinine 1.16 0.50-1.40 Lvl) [email or web address] [id number] 07:19:00 Test Item Value Reference Range Interpretation Comments Sodium Lvl (test code = Sodium Lvl) 137 135-145 [email or web address] [id number] 07:19:00 Test Item Value Reference Range Interpretation Comments Potassium Lvl (test code = Potassium 4.2 3.5-5.1 Lvl) [facility] [id number] 07:19:00 Test Item Value Reference Range Interpretation Comments Chloride Lvl (test code = Chloride Lvl) 108 95-109 [email or web address] [id number] 07:19:00 Test Item Value Reference Range Interpretation Comments CO2 (test code = CO2) 25 24-32 [facility] [id number] 07:19:00 Test Item Value Reference Range Interpretation Comments Calcium Lvl (test code = Calcium Lvl) 9.4 8.5-10.5 [email or web address] [id number] 07:19:00 Test Item Value Reference Range Interpretation Comments AGAP (test code = AGAP) 8.2 10.0-20.0 [facility] [id number] 07:19:00 Test Item Value Reference Range Interpretation Comments eGFR (test code = eGFR) 45 [facility] [id number] 07:19:00 Test Item Value Reference Range Interpretation Comments Magnesium Lvl (test code = Magnesium 2.2 1.8-2.4 Lvl) [place] [id number] 07:19:00 Test Item Value Reference Range Interpretation Comments Segs (test code = Segs) 50.3 45.0-75.0 [place] [id number] 07:19:00 Test Item Value Reference Range Interpretation Comments Lymphocytes (test code = Lymphocytes) 32.5 20.0-40.0 [place] [address]-03-29 07:19:00 Test Item Value Reference Range Interpretation Comments Monocytes (test code = Monocytes) 12.2 2.0-12.0 [place] [address]-03-29 07:19:00 Test Item Value Reference Range Interpretation Comments Eosinophils (test code = 3.3 See_Comment [A utomated message] The Eosinophils) system which ge nerated this result tra nsmitted reference range : <=4.0. The reference r patria was not used to int erpret this result as normal/abnormal . [place] [address]-03-29 07:19:00 Test Item Value Reference Range Interpretation Comments Basophils (test code = 1.7 See_Comment [Aut omated message] The Basophils) system which ge nerated this result tra nsmitted reference range : <=1.0. The reference r patria was not used to int erpret this result as normal/abnormal . [place] [id number] 07:19:00 Test Item Value Reference Range Interpretation Comments Neutrophils # (test code = Neutrophils 3.2 1.5-8.1 #) [place] [address]-03-29 07:19:00 Test Item Value Reference Range Interpretation Comments Lymphocytes # (test code = Lymphocytes 2.1 1.0-5.5 #) [place] [address]-03-29 07:19:00 Test Item Value Reference Range Interpretation Comments Monocytes # (test code 0.8 See_Comment [Aut omated message] The = Monocytes #) system which generated this result tra nsmitted reference range : <=0.8. The reference r patria was not used to int erpret this result as normal/abnormal . [id number]:00 Test Item Value Reference Range Interpretation Comments Eosinophils # (test code 0.2 See_Comment [A utomated message] The = Eosinophils #) system whic h generated this result tra nsmitted reference range : <=0.5. The reference r patria was not used to int erpret this result as normal/abnormal . [id number] 07:19:00 Test Item Value Reference Range Interpretation Comments Basophils # (test code 0.1 See_Comment [Aut omated message] The = Basophils #) system which generated this result tra nsmitted reference range : <=0.2. The reference r patria was not used to int erpret this result as normal/abnormal . [facility] [id number] 07:19:00 Test Item Value Reference Range Interpretation Comments Macrocyte (test code = 1+ *ABN*(02/07/20 Macrocyte) 2:19 AM) [id number] 07:19:00 Test Item Value Reference Range Interpretation Comments WBC (test code = WBC) 6.5 3.7-10.4 [id number] 07:19:00 Test Item Value Reference Range Interpretation Comments RBC (test code = RBC) 2.65 4.20-5.40 [id number] 07:19:00 Test Item Value Reference Range Interpretation Comments Hgb (test code = Hgb) 9.3 12.0-16.0 [place] [address]-03-29 07:19:00 Test Item Value Reference Range Interpretation Comments Hct (test code = Hct) 27.6 36.0-48.0 [facility]ao[facility]daQUTHWKTODQ0757-22-48 07:19:00 Test Item Value Reference Range Interpretation Comments MCV (test code = MCV) 104.4 80.0-98.0 [place] [id number] 07:19:00 Test Item Value Reference Range Interpretation Comments MCH (test code = MCH) 35.0 pg 27.0-31.0 [place] [address]-03-29 07:19:00 Test Item Value Reference Range Interpretation Comments MCHC (test code = MCHC) 33.6 32.0-36.0 [facility]kjajkRWNZZLFLMQ2162-07-51 07:19:00 Test Item Value Reference Range Interpretation Comments RDW (test code = RDW) 13.7 11.5-14.5 [facility] CenterWafhhluBIZBRFZSPV9613-00-80 07:19:00 Test Item Value Reference Range Interpretation Comments Platelet (test code = Platelet) 423 133-450 [facility] CenterCyuxxpfQPOBZJNJRQ3422-60-68 07:19:00 Test Item Value Reference Range Interpretation Comments MPV (test code = MPV) 7.1 7.4-10.4 [id number] 07:19:00 Test Item Value Reference Range Interpretation Comments Ca Ion WB (test code = Ca Ion WB) 1.18 1.05-1.25 [facility]2020-03-29 07:19:00 Test Item Value Reference Range Interpretation Comments Ca Norm WB (test code = Ca Norm WB) 1.21 1.05-1.25 [place] 542560-03-29 07:19:00 Test Item Value Reference Range Interpretation Comments Phosphorus (test code = Phosphorus) 3.6 2.5-4.5 [facility]2020-03-29 07:19:00 Test Item Value Reference Range Interpretation Comments Glucose Lvl (test code = Glucose Lvl) 78 70-99 [facility]2020-03-29 07:19:00 Test Item Value Reference Range Interpretation Comments BUN (test code = BUN) 32 7-22 [place] 542560-03-29 07:19:00 Test Item Value Reference Range Interpretation Comments Creatinine Lvl (test code = Creatinine 1.16 0.50-1.40 Lvl) [place] 542560-03-29 07:19:00 Test Item Value Reference Range Interpretation Comments Sodium Lvl (test code = Sodium Lvl) 137 135-145 [place] 542560-03-29 07:19:00 Test Item Value Reference Range Interpretation Comments Potassium Lvl (test code = Potassium 4.2 3.5-5.1 Lvl) [place] 542560-03-29 07:19:00 Test Item Value Reference Range Interpretation Comments Chloride Lvl (test code = Chloride Lvl) 108 95-109 [facility]2020-03-29 07:19:00 Test Item Value Reference Range Interpretation Comments CO2 (test code = CO2) 25 24-32 [place] 542560-03-29 07:19:00 Test Item Value Reference Range Interpretation Comments Calcium Lvl (test code = Calcium Lvl) 9.4 8.5-10.5 [facility]2020-03-29 07:19:00 Test Item Value Reference Range Interpretation Comments AGAP (test code = AGAP) 8.2 10.0-20.0 [facility]2020-03-29 07:19:00 Test Item Value Reference Range Interpretation Comments eGFR (test code = eGFR) 45 [facility]2020-03-29 07:19:00 Test Item Value Reference Range Interpretation Comments Magnesium Lvl (test code = Magnesium 2.2 1.8-2.4 Lvl) [facility]TlkvjmhUMPNGYAXWL1070-85-28 07:19:00 Test Item Value Reference Range Interpretation Comments Segs (test code = Segs) 50.3 45.0-75.0 [facility] CenterSfqvgmqDUDKSKACHI5414-78-84 07:19:00 Test Item Value Reference Range Interpretation Comments Lymphocytes (test code = Lymphocytes) 32.5 20.0-40.0 [place] 519360-03-29 07:19:00 Test Item Value Reference Range Interpretation Comments Monocytes (test code = Monocytes) 12.2 2.0-12.0 [place] 519360-03-29 07:19:00 Test Item Value Reference Range Interpretation Comments Eosinophils (test code = 3.3 See_Comment [A utomated message] The Eosinophils) system which ge nerated this result tra nsmitted reference range : <=4.0. The reference r patria was not used to int erpret this result as normal/abnormal . [place] 519360-03-29 07:19:00 Test Item Value Reference Range Interpretation Comments Basophils (test code = 1.7 See_Comment [Aut omated message] The Basophils) system which ge nerated this result tra nsmitted reference range : <=1.0. The reference r patria was not used to int erpret this result as normal/abnormal . [place] 519360-03-29 07:19:00 Test Item Value Reference Range Interpretation Comments Neutrophils # (test code = Neutrophils 3.2 1.5-8.1 #) [place] 519360-03-29 07:19:00 Test Item Value Reference Range Interpretation Comments Lymphocytes # (test code = Lymphocytes 2.1 1.0-5.5 #) [place] 519360-03-29 07:19:00 Test Item Value Reference Range Interpretation Comments Monocytes # (test code 0.8 See_Comment [Aut omated message] The = Monocytes #) system which generated this result tra nsmitted reference range : <=0.8. The reference r patria was not used to int erpret this result as normal/abnormal . [place] 519360-03-29 07:19:00 Test Item Value Reference Range Interpretation Comments Eosinophils # (test code 0.2 See_Comment [A utomated message] The = Eosinophils #) system whic h generated this result tra nsmitted reference range : <=0.5. The reference r patria was not used to int erpret this result as normal/abnormal . [place] 519360-03-29 07:19:00 Test Item Value Reference Range Interpretation Comments Basophils # (test code 0.1 See_Comment [Aut omated message] The = Basophils #) system which generated this result tra nsmitted reference range : <=0.2. The reference r patria was not used to int erpret this result as normal/abnormal . [place] 519360-03-29 07:19:00 Test Item Value Reference Range Interpretation Comments Macrocyte (test code = 1+ *ABN*(02/07/20 Macrocyte) 2:19 AM) [place] 519360-03-29 07:19:00 Test Item Value Reference Range Interpretation Comments WBC (test code = WBC) 6.5 3.7-10.4 [place] [address]-03-29 07:19:00 Test Item Value Reference Range Interpretation Comments RBC (test code = RBC) 2.65 4.20-5.40 [place] 519360-03-29 07:19:00 Test Item Value Reference Range Interpretation Comments Hgb (test code = Hgb) 9.3 12.0-16.0 [facility] ServicesAfxmjwhPJUVDATMBN8687-72-02 07:19:00 Test Item Value Reference Range Interpretation Comments Hct (test code = Hct) 27.6 36.0-48.0 [facility] CenterDmhqitaGBZXSLOVNN1020-10-73 07:19:00 Test Item Value Reference Range Interpretation Comments MCV (test code = MCV) 104.4 80.0-98.0 [facility] CenterDfkxgulTMYYZNLSWV4505-03-54 07:19:00 Test Item Value Reference Range Interpretation Comments MCH (test code = MCH) 35.0 pg 27.0-31.0 [facility] CenterTkabobmZVAMGXAPLL2107-69-89 07:19:00 Test Item Value Reference Range Interpretation Comments MCHC (test code = MCHC) 33.6 32.0-36.0 [facility] CenterRktwzraBNFZNHNYSK8184-43-25 07:19:00 Test Item Value Reference Range Interpretation Comments RDW (test code = RDW) 13.7 11.5-14.5 [facility] CenterBggwyklHGOCNUSREQ8086-33-67 07:19:00 Test Item Value Reference Range Interpretation Comments Platelet (test code = Platelet) 423 133-450 [facility] CenterQtlsfnmMAEONICOOQ9897-79-42 07:19:00 Test Item Value Reference Range Interpretation Comments MPV (test code = MPV) 7.1 7.4-10.4 [facility] [id number] 07:19:00 Test Item Value Reference Range Interpretation Comments Ca Ion WB (test code = Ca Ion WB) 1.18 1.05-1.25 [facility]PAR[facility]YROID [id number] 07:19:00 Test Item Value Reference Range Interpretation Comments Ca Norm WB (test code = Ca Norm WB) 1.21 1.05-1.25 [facility] HospitalIn[facility] Space [id number] 07:19:00 Test Item Value Reference Range Interpretation Comments Phosphorus (test code = Phosphorus) 3.6 2.5-4.5 [facility]2020-03-29 07:19:00 Test Item Value Reference Range Interpretation Comments Glucose Lvl (test code = Glucose Lvl) 78 70-99 [facility]2020-03-29 07:19:00 Test Item Value Reference Range Interpretation Comments BUN (test code = BUN) 32 7-22 [facility]2020-03-29 07:19:00 Test Item Value Reference Range Interpretation Comments Creatinine Lvl (test code = Creatinine 1.16 0.50-1.40 Lvl) [place] 542560-03-29 07:19:00 Test Item Value Reference Range Interpretation Comments Sodium Lvl (test code = Sodium Lvl) 137 135-145 [place] 542560-03-29 07:19:00 Test Item Value Reference Range Interpretation Comments Potassium Lvl (test code = Potassium 4.2 3.5-5.1 Lvl) [place] 542560-03-29 07:19:00 Test Item Value Reference Range Interpretation Comments Chloride Lvl (test code = Chloride Lvl) 108 95-109 [place] 542560-03-29 07:19:00 Test Item Value Reference Range Interpretation Comments CO2 (test code = CO2) 25 24-32 [place] [address]-03-29 07:19:00 Test Item Value Reference Range Interpretation Comments Calcium Lvl (test code = Calcium Lvl) 9.4 8.5-10.5 [place] 542560-03-29 07:19:00 Test Item Value Reference Range Interpretation Comments AGAP (test code = AGAP) 8.2 10.0-20.0 [place] 542560-03-29 07:19:00 Test Item Value Reference Range Interpretation Comments eGFR (test code = eGFR) 45 [facility]2020-03-29 07:19:00 Test Item Value Reference Range Interpretation Comments Magnesium Lvl (test code = Magnesium 2.2 1.8-2.4 Lvl) [place] 519360-03-29 07:19:00 Test Item Value Reference Range Interpretation Comments Segs (test code = Segs) 50.3 45.0-75.0 [place] [address]-03-29 07:19:00 Test Item Value Reference Range Interpretation Comments Lymphocytes (test code = Lymphocytes) 32.5 20.0-40.0 [place] [address]-03-29 07:19:00 Test Item Value Reference Range Interpretation Comments Monocytes (test code = Monocytes) 12.2 2.0-12.0 [place] [address]-03-29 07:19:00 Test Item Value Reference Range Interpretation Comments Eosinophils (test code = 3.3 See_Comment [A utomated message] The Eosinophils) system which ge nerated this result tra nsmitted reference range : <=4.0. The reference r patria was not used to int erpret this result as normal/abnormal . [facility] CenterDdvgwomDAFDJNTEPI7443-21-20 07:19:00 Test Item Value Reference Range Interpretation Comments Basophils (test code = 1.7 See_Comment [Aut omated message] The Basophils) system which ge nerated this result tra nsmitted reference range : <=1.0. The reference r patria was not used to int erpret this result as normal/abnormal . [place] 519360-03-29 07:19:00 Test Item Value Reference Range Interpretation Comments Neutrophils # (test code = Neutrophils 3.2 1.5-8.1 #) [place] 519360-03-29 07:19:00 Test Item Value Reference Range Interpretation Comments Lymphocytes # (test code = Lymphocytes 2.1 1.0-5.5 #) [place] 519360-03-29 07:19:00 Test Item Value Reference Range Interpretation Comments Monocytes # (test code 0.8 See_Comment [Aut omated message] The = Monocytes #) system which generated this result tra nsmitted reference range : <=0.8. The reference r patria was not used to int erpret this result as normal/abnormal . [facility] CenterEsrssrgDWRNPDKIOG9160-96-39 07:19:00 Test Item Value Reference Range Interpretation Comments Eosinophils # (test code 0.2 See_Comment [A utomated message] The = Eosinophils #) system wh h generated this result tra nsmitted reference range : <=0.5. The reference r patria was not used to int erpret this result as normal/abnormal . [facility] CenterJsripyiDGIGGLEDHX2726-64-74 07:19:00 Test Item Value Reference Range Interpretation Comments Basophils # (test code 0.1 See_Comment [Aut omated message] The = Basophils #) system which generated this result tra nsmitted reference range : <=0.2. The reference r patria was not used to int erpret this result as normal/abnormal . [place] 519360-03-29 07:19:00 Test Item Value Reference Range Interpretation Comments Macrocyte (test code = 1+ *ABN*(02/07/20 Macrocyte) 2:19 AM) [facility] CenterZtnhfxsKGSJTCTLOG6093-73-78 07:19:00 Test Item Value Reference Range Interpretation Comments WBC (test code = WBC) 6.5 3.7-10.4 [facility] CenterOlwrwgcIFWQVETEGD1806-50-01 07:19:00 Test Item Value Reference Range Interpretation Comments RBC (test code = RBC) 2.65 4.20-5.40 [facility] CenterDdranudLWPNCZGIEQ0696-14-63 07:19:00 Test Item Value Reference Range Interpretation Comments Hgb (test code = Hgb) 9.3 12.0-16.0 [facility] CenterZyhrylcHIOSQXXDWP6629-64-75 07:19:00 Test Item Value Reference Range Interpretation Comments Hct (test code = Hct) 27.6 36.0-48.0 [facility] CenterBjlcfxfECRLBZKFBB4788-61-14 07:19:00 Test Item Value Reference Range Interpretation Comments MCV (test code = MCV) 104.4 80.0-98.0 [facility] CenterXjzoekfZRHAVUEUAE3217-57-40 07:19:00 Test Item Value Reference Range Interpretation Comments MCH (test code = MCH) 35.0 pg 27.0-31.0 [facility] CenterQczzaedUITJLBLFSM6832-66-21 07:19:00 Test Item Value Reference Range Interpretation Comments MCHC (test code = MCHC) 33.6 32.0-36.0 [facility] CenterOnipiuuQYTRKFTXPX1014-62-09 07:19:00 Test Item Value Reference Range Interpretation Comments RDW (test code = RDW) 13.7 11.5-14.5 [facility] CenterXqcipkfSETKTTZKDG3896-98-44 07:19:00 Test Item Value Reference Range Interpretation Comments Platelet (test code = Platelet) 423 133-450 [facility] CenterHmnmxisABYLLHCZAA4031-31-95 07:19:00 Test Item Value Reference Range Interpretation Comments MPV (test code = MPV) 7.1 7.4-10.4 [facility]PAR[facility]ID [id number] 07:19:00 Test Item Value Reference Range Interpretation Comments Ca Ion WB (test code = Ca Ion WB) 1.18 1.05-1.25 [facility] ATPYNEP3904-47-04 07:19:00 Test Item Value Reference Range Interpretation Comments Ca Norm WB (test code = Ca Norm WB) 1.21 1.05-1.25 [place] 542560-03-29 07:19:00 Test Item Value Reference Range Interpretation Comments Phosphorus (test code = Phosphorus) 3.6 2.5-4.5 [place] 542560-03-29 07:19:00 Test Item Value Reference Range Interpretation Comments Glucose Lvl (test code = Glucose Lvl) 78 70-99 [place] [address]-03-29 07:19:00 Test Item Value Reference Range Interpretation Comments BUN (test code = BUN) 32 7-22 [place] 542560-03-29 07:19:00 Test Item Value Reference Range Interpretation Comments Creatinine Lvl (test code = Creatinine 1.16 0.50-1.40 Lvl) [place] 542560-03-29 07:19:00 Test Item Value Reference Range Interpretation Comments Sodium Lvl (test code = Sodium Lvl) 137 135-145 [place] 542560-03-29 07:19:00 Test Item Value Reference Range Interpretation Comments Potassium Lvl (test code = Potassium 4.2 3.5-5.1 Lvl) [facility]2020-03-29 07:19:00 Test Item Value Reference Range Interpretation Comments Chloride Lvl (test code = Chloride Lvl) 108 95-109 [facility]2020-03-29 07:19:00 Test Item Value Reference Range Interpretation Comments CO2 (test code = CO2) 25 24-32 [place] 542560-03-29 07:19:00 Test Item Value Reference Range Interpretation Comments Calcium Lvl (test code = Calcium Lvl) 9.4 8.5-10.5 [place] 542560-03-29 07:19:00 Test Item Value Reference Range Interpretation Comments AGAP (test code = AGAP) 8.2 10.0-20.0 [place] [address]-03-29 07:19:00 Test Item Value Reference Range Interpretation Comments eGFR (test code = eGFR) 45 [place] 542560-03-29 07:19:00 Test Item Value Reference Range Interpretation Comments Magnesium Lvl (test code = Magnesium 2.2 1.8-2.4 Lvl) [facility] ServicesUkhaxgvLQBKEGZBCK2856-46-91 07:19:00 Test Item Value Reference Range Interpretation Comments Segs (test code = Segs) 50.3 45.0-75.0 [place] 519360-03-29 07:19:00 Test Item Value Reference Range Interpretation Comments Lymphocytes (test code = Lymphocytes) 32.5 20.0-40.0 [place] 519360-03-29 07:19:00 Test Item Value Reference Range Interpretation Comments Monocytes (test code = Monocytes) 12.2 2.0-12.0 [place] 519360-03-29 07:19:00 Test Item Value Reference Range Interpretation Comments Eosinophils (test code = 3.3 See_Comment [A utomated message] The Eosinophils) system which ge nerated this result tra nsmitted reference range : <=4.0. The reference r patria was not used to int erpret this result as normal/abnormal . [place] [address]-03-29 07:19:00 Test Item Value Reference Range Interpretation Comments Basophils (test code = 1.7 See_Comment [Aut omated message] The Basophils) system which ge nerated this result tra nsmitted reference range : <=1.0. The reference r patria was not used to int erpret this result as normal/abnormal . [place] 519360-03-29 07:19:00 Test Item Value Reference Range Interpretation Comments Neutrophils # (test code = Neutrophils 3.2 1.5-8.1 #) [place] 519360-03-29 07:19:00 Test Item Value Reference Range Interpretation Comments Lymphocytes # (test code = Lymphocytes 2.1 1.0-5.5 #) [place] 519360-03-29 07:19:00 Test Item Value Reference Range Interpretation Comments Monocytes # (test code 0.8 See_Comment [Aut omated message] The = Monocytes #) system which generated this result tra nsmitted reference range : <=0.8. The reference r patria was not used to int erpret this result as normal/abnormal . [place] 519360-03-29 07:19:00 Test Item Value Reference Range Interpretation Comments Eosinophils # (test code 0.2 See_Comment [A utomated message] The = Eosinophils #) system whic h generated this result tra nsmitted reference range : <=0.5. The reference r patria was not used to int erpret this result as normal/abnormal . [facility] CenterQqpxygwZTGCFCJHDX6879-21-37 07:19:00 Test Item Value Reference Range Interpretation Comments Basophils # (test code 0.1 See_Comment [Aut omated message] The = Basophils #) system which generated this result tra nsmitted reference range : <=0.2. The reference r patria was not used to int erpret this result as normal/abnormal . [facility] CenterWetgyygKFBEEQBAMS6785-20-49 07:19:00 Test Item Value Reference Range Interpretation Comments Macrocyte (test code = 1+ *ABN*(02/07/20 Macrocyte) 2:19 AM) [facility] CenterFdlbijmELHEEYHPVT8770-77-01 07:19:00 Test Item Value Reference Range Interpretation Comments WBC (test code = WBC) 6.5 3.7-10.4 [facility] CenterDfgxaosRIXYMIVBRG8076-36-70 07:19:00 Test Item Value Reference Range Interpretation Comments RBC (test code = RBC) 2.65 4.20-5.40 [facility] CenterZsesjxqXKWWGIYEGQ7929-58-84 07:19:00 Test Item Value Reference Range Interpretation Comments Hgb (test code = Hgb) 9.3 12.0-16.0 [facility] CenterSqjvdvjEBCAOHGAXG2316-85-70 07:19:00 Test Item Value Reference Range Interpretation Comments Hct (test code = Hct) 27.6 36.0-48.0 [facility] CenterUkmbzrwKRUCAANGNB5264-18-57 07:19:00 Test Item Value Reference Range Interpretation Comments MCV (test code = MCV) 104.4 80.0-98.0 [facility] CenterRxmptduMJCSBGBAOS1266-37-02 07:19:00 Test Item Value Reference Range Interpretation Comments MCH (test code = MCH) 35.0 pg 27.0-31.0 [facility] CenterEjhvfpuKLMTVTZYMX7700-56-83 07:19:00 Test Item Value Reference Range Interpretation Comments MCHC (test code = MCHC) 33.6 32.0-36.0 [facility] CenterQxybekrDXWOUEQEYP0140-73-98 07:19:00 Test Item Value Reference Range Interpretation Comments RDW (test code = RDW) 13.7 11.5-14.5 [facility] CenterJparftaHKTWPZFFYI6335-46-95 07:19:00 Test Item Value Reference Range Interpretation Comments Platelet (test code = Platelet) 423 133-450 [place] 519360-03-29 07:19:00 Test Item Value Reference Range Interpretation Comments MPV (test code = MPV) 7.1 7.4-10.4 [facility] FIPWUWM5110-64-61 07:19:00 Test Item Value Reference Range Interpretation Comments Ca Ion WB (test code = Ca Ion WB) 1.18 1.05-1.25 [facility] [id number] 07:19:00 Test Item Value Reference Range Interpretation Comments Ca Norm WB (test code = Ca Norm WB) 1.21 1.05-1.25 [facility]2020-03-29 07:19:00 Test Item Value Reference Range Interpretation Comments Phosphorus (test code = Phosphorus) 3.6 2.5-4.5 [facility]2020-03-29 07:19:00 Test Item Value Reference Range Interpretation Comments Glucose Lvl (test code = Glucose Lvl) 78 70-99 [facility]2020-03-29 07:19:00 Test Item Value Reference Range Interpretation Comments BUN (test code = BUN) 32 7-22 [facility]2020-03-29 07:19:00 Test Item Value Reference Range Interpretation Comments Creatinine Lvl (test code = Creatinine 1.16 0.50-1.40 Lvl) [facility]2020-03-29 07:19:00 Test Item Value Reference Range Interpretation Comments Sodium Lvl (test code = Sodium Lvl) 137 135-145 [facility]2020-03-29 07:19:00 Test Item Value Reference Range Interpretation Comments Potassium Lvl (test code = Potassium 4.2 3.5-5.1 Lvl) [facility]2020-03-29 07:19:00 Test Item Value Reference Range Interpretation Comments Chloride Lvl (test code = Chloride Lvl) 108 95-109 [facility]2020-03-29 07:19:00 Test Item Value Reference Range Interpretation Comments CO2 (test code = CO2) 25 24-32 [place] 542560-03-29 07:19:00 Test Item Value Reference Range Interpretation Comments Calcium Lvl (test code = Calcium Lvl) 9.4 8.5-10.5 [place] 542560-03-29 07:19:00 Test Item Value Reference Range Interpretation Comments AGAP (test code = AGAP) 8.2 10.0-20.0 [facility] [id number] 07:19:00 Test Item Value Reference Range Interpretation Comments eGFR (test code = eGFR) 45 [facility] [id number] 07:19:00 Test Item Value Reference Range Interpretation Comments Magnesium Lvl (test code = Magnesium 2.2 1.8-2.4 Lvl) [place] 519360-03-29 07:19:00 Test Item Value Reference Range Interpretation Comments Segs (test code = Segs) 50.3 45.0-75.0 [place] [address]-03-29 07:19:00 Test Item Value Reference Range Interpretation Comments Lymphocytes (test code = Lymphocytes) 32.5 20.0-40.0 [place] [address]-03-29 07:19:00 Test Item Value Reference Range Interpretation Comments Monocytes (test code = Monocytes) 12.2 2.0-12.0 [place] 519360-03-29 07:19:00 Test Item Value Reference Range Interpretation Comments Eosinophils (test code = 3.3 See_Comment [A utomated message] The Eosinophils) system which ge nerated this result tra nsmitted reference range : <=4.0. The reference r patria was not used to int erpret this result as normal/abnormal . [place] [address]-03-29 07:19:00 Test Item Value Reference Range Interpretation Comments Basophils (test code = 1.7 See_Comment [Aut omated message] The Basophils) system which ge nerated this result tra nsmitted reference range : <=1.0. The reference r patria was not used to int erpret this result as normal/abnormal . [place] 519360-03-29 07:19:00 Test Item Value Reference Range Interpretation Comments Neutrophils # (test code = Neutrophils 3.2 1.5-8.1 #) [place] 519360-03-29 07:19:00 Test Item Value Reference Range Interpretation Comments Lymphocytes # (test code = Lymphocytes 2.1 1.0-5.5 #) [place] 519360-03-29 07:19:00 Test Item Value Reference Range Interpretation Comments Monocytes # (test code 0.8 See_Comment [Aut omated message] The = Monocytes #) system which generated this result tra nsmitted reference range : <=0.8. The reference r patria was not used to int erpret this result as normal/abnormal . [facility] CenterKbftrrnSYYVMTVZJA5099-54-82 07:19:00 Test Item Value Reference Range Interpretation Comments Eosinophils # (test code 0.2 See_Comment [A utomated message] The = Eosinophils #) system whic h generated this result tra nsmitted reference range : <=0.5. The reference r patria was not used to int erpret this result as normal/abnormal . [facility] CenterWqibwdyOMEGZYRAYN6383-34-61 07:19:00 Test Item Value Reference Range Interpretation Comments Basophils # (test code 0.1 See_Comment [Aut omated message] The = Basophils #) system which generated this result tra nsmitted reference range : <=0.2. The reference r patria was not used to int erpret this result as normal/abnormal . [facility] CenterTagxvtbQPTIFVJQYA4073-87-62 07:19:00 Test Item Value Reference Range Interpretation Comments Macrocyte (test code = 1+ *ABN*(02/07/20 Macrocyte) 2:19 AM) [place] 519360-03-29 07:19:00 Test Item Value Reference Range Interpretation Comments WBC (test code = WBC) 6.5 3.7-10.4 [place] 519360-03-29 07:19:00 Test Item Value Reference Range Interpretation Comments RBC (test code = RBC) 2.65 4.20-5.40 [place] 519360-03-29 07:19:00 Test Item Value Reference Range Interpretation Comments Hgb (test code = Hgb) 9.3 12.0-16.0 [place] 519360-03-29 07:19:00 Test Item Value Reference Range Interpretation Comments Hct (test code = Hct) 27.6 36.0-48.0 [place] 519360-03-29 07:19:00 Test Item Value Reference Range Interpretation Comments MCV (test code = MCV) 104.4 80.0-98.0 [place] 519360-03-29 07:19:00 Test Item Value Reference Range Interpretation Comments MCH (test code = MCH) 35.0 pg 27.0-31.0 [facility]kvzouaQBKPKVZAJF9574-21-39 07:19:00 Test Item Value Reference Range Interpretation Comments MCHC (test code = MCHC) 33.6 32.0-36.0 [facility]ijgrgXPGVYGFEXU2485-55-59 07:19:00 Test Item Value Reference Range Interpretation Comments RDW (test code = RDW) 13.7 11.5-14.5 [facility] CenterKinjdqbDMUCMWSQUH4207-16-91 07:19:00 Test Item Value Reference Range Interpretation Comments Platelet (test code = Platelet) 423 133-450 [facility] CenterQjeiiufLAAAVAVRXB0579-21-01 07:19:00 Test Item Value Reference Range Interpretation Comments MPV (test code = MPV) 7.1 7.4-10.4 [facility]annPARATHYROID [id number] 07:19:00 Test Item Value Reference Range Interpretation Comments Ca Ion WB (test code = Ca Ion WB) 1.18 1.05-1.25 [facility] [id number] 07:19:00 Test Item Value Reference Range Interpretation Comments Ca Norm WB (test code = Ca Norm WB) 1.21 1.05-1.25 [facility] [id number] 07:19:00 Test Item Value Reference Range Interpretation Comments Phosphorus (test code = Phosphorus) 3.6 2.5-4.5 [facility]annCHEM [id number] 07:19:00 Test Item Value Reference Range Interpretation Comments Glucose Lvl (test code = Glucose Lvl) 78 70-99 [facility]2020-03-29 07:19:00 Test Item Value Reference Range Interpretation Comments BUN (test code = BUN) 32 7-22 [facility]annREBE[place] 19465EWBFH2607-72-95 07:19:00 Test Item Value Reference Range Interpretation Comments Creatinine Lvl (test code = Creatinine 1.16 0.50-1.40 Lvl) [facility] [id number] 07:19:00 Test Item Value Reference Range Interpretation Comments Sodium Lvl (test code = Sodium Lvl) 137 135-145 [facility]2020-03-29 07:19:00 Test Item Value Reference Range Interpretation Comments Potassium Lvl (test code = Potassium 4.2 3.5-5.1 Lvl) [place] 542560-03-29 07:19:00 Test Item Value Reference Range Interpretation Comments Chloride Lvl (test code = Chloride Lvl) 108 95-109 [place] [address]-03-29 07:19:00 Test Item Value Reference Range Interpretation Comments CO2 (test code = CO2) 25 24-32 [place] [address]-03-29 07:19:00 Test Item Value Reference Range Interpretation Comments Calcium Lvl (test code = Calcium Lvl) 9.4 8.5-10.5 [place] 542560-03-29 07:19:00 Test Item Value Reference Range Interpretation Comments AGAP (test code = AGAP) 8.2 10.0-20.0 [place] [address]-03-29 07:19:00 Test Item Value Reference Range Interpretation Comments eGFR (test code = eGFR) 45 [place] 542560-03-29 07:19:00 Test Item Value Reference Range Interpretation Comments Magnesium Lvl (test code = Magnesium 2.2 1.8-2.4 Lvl) [place] 519360-03-29 07:19:00 Test Item Value Reference Range Interpretation Comments Segs (test code = Segs) 50.3 45.0-75.0 [place] [address]-03-29 07:19:00 Test Item Value Reference Range Interpretation Comments Lymphocytes (test code = Lymphocytes) 32.5 20.0-40.0 [place] [address]-03-29 07:19:00 Test Item Value Reference Range Interpretation Comments Monocytes (test code = Monocytes) 12.2 2.0-12.0 [place] [address]-03-29 07:19:00 Test Item Value Reference Range Interpretation Comments Eosinophils (test code = 3.3 See_Comment [A utomated message] The Eosinophils) system which ge nerated this result tra nsmitted reference range : <=4.0. The reference r patria was not used to int erpret this result as normal/abnormal . [place] [address]-03-29 07:19:00 Test Item Value Reference Range Interpretation Comments Basophils (test code = 1.7 See_Comment [Aut omated message] The Basophils) system which ge nerated this result tra nsmitted reference range : <=1.0. The reference r patria was not used to int erpret this result as normal/abnormal . [place] 519360-03-29 07:19:00 Test Item Value Reference Range Interpretation Comments Neutrophils # (test code = Neutrophils 3.2 1.5-8.1 #) [place] 519360-03-29 07:19:00 Test Item Value Reference Range Interpretation Comments Lymphocytes # (test code = Lymphocytes 2.1 1.0-5.5 #) [place] 519360-03-29 07:19:00 Test Item Value Reference Range Interpretation Comments Monocytes # (test code 0.8 See_Comment [Aut omated message] The = Monocytes #) system which generated this result tra nsmitted reference range : <=0.8. The reference r patria was not used to int erpret this result as normal/abnormal . [place] [address]-03-29 07:19:00 Test Item Value Reference Range Interpretation Comments Eosinophils # (test code 0.2 See_Comment [A utomated message] The = Eosinophils #) system whic h generated this result tra nsmitted reference range : <=0.5. The reference r patria was not used to int erpret this result as normal/abnormal . [place] [address]-03-29 07:19:00 Test Item Value Reference Range Interpretation Comments Basophils # (test code 0.1 See_Comment [Aut omated message] The = Basophils #) system which generated this result tra nsmitted reference range : <=0.2. The reference r patria was not used to int erpret this result as normal/abnormal . [place] 519360-03-29 07:19:00 Test Item Value Reference Range Interpretation Comments Macrocyte (test code = 1+ *ABN*(02/07/20 Macrocyte) 2:19 AM) [place] 519360-03-29 07:19:00 Test Item Value Reference Range Interpretation Comments WBC (test code = WBC) 6.5 3.7-10.4 [place] 519360-03-29 07:19:00 Test Item Value Reference Range Interpretation Comments RBC (test code = RBC) 2.65 4.20-5.40 [place] 519360-03-29 07:19:00 Test Item Value Reference Range Interpretation Comments Hgb (test code = Hgb) 9.3 12.0-16.0 [facility]OxtwjcdUPEPZCNURI2507-10-84 07:19:00 Test Item Value Reference Range Interpretation Comments Hct (test code = Hct) 27.6 36.0-48.0 [facility] CenterVcptrorSXXKEMILWF1637-17-74 07:19:00 Test Item Value Reference Range Interpretation Comments MCV (test code = MCV) 104.4 80.0-98.0 [facility] CenterBotwdjzVYBWLWTUME5480-84-92 07:19:00 Test Item Value Reference Range Interpretation Comments MCH (test code = MCH) 35.0 pg 27.0-31.0 [facility] CenterEakkmlxEIRFLXKWES1318-35-65 07:19:00 Test Item Value Reference Range Interpretation Comments MCHC (test code = MCHC) 33.6 32.0-36.0 [facility] CenterEelhgjtUALRYZPAWQ4052-68-30 07:19:00 Test Item Value Reference Range Interpretation Comments RDW (test code = RDW) 13.7 11.5-14.5 [facility] CenterPokprdyIKHHMPGUNS1129-37-29 07:19:00 Test Item Value Reference Range Interpretation Comments Platelet (test code = Platelet) 423 133-450 [facility] CenterMzmfnieLRXPDJAJPM2172-96-68 07:19:00 Test Item Value Reference Range Interpretation Comments MPV (test code = MPV) 7.1 7.4-10.4 [facility] HospitalPARATHYROID [id number] 07:19:00 Test Item Value Reference Range Interpretation Comments Ca Ion WB (test code = Ca Ion WB) 1.18 1.05-1.25 [facility] HospitalPARATHYROID [id number] 07:19:00 Test Item Value Reference Range Interpretation Comments Ca Norm WB (test code = Ca Norm WB) 1.21 1.05-1.25 [facility] HospitalCHEM [id number] 07:19:00 Test Item Value Reference Range Interpretation Comments Phosphorus (test code = Phosphorus) 3.6 2.5-4.5 [facility]2020-03-29 07:19:00 Test Item Value Reference Range Interpretation Comments Glucose Lvl (test code = Glucose Lvl) 78 70-99 [place] 542560-03-29 07:19:00 Test Item Value Reference Range Interpretation Comments BUN (test code = BUN) 32 7-22 [place] 542560-03-29 07:19:00 Test Item Value Reference Range Interpretation Comments Creatinine Lvl (test code = Creatinine 1.16 0.50-1.40 Lvl) [place] 542560-03-29 07:19:00 Test Item Value Reference Range Interpretation Comments Sodium Lvl (test code = Sodium Lvl) 137 135-145 [place] 542560-03-29 07:19:00 Test Item Value Reference Range Interpretation Comments Potassium Lvl (test code = Potassium 4.2 3.5-5.1 Lvl) [place] 542560-03-29 07:19:00 Test Item Value Reference Range Interpretation Comments Chloride Lvl (test code = Chloride Lvl) 108 95-109 [place] 542560-03-29 07:19:00 Test Item Value Reference Range Interpretation Comments CO2 (test code = CO2) 25 24-32 [place] 542560-03-29 07:19:00 Test Item Value Reference Range Interpretation Comments Calcium Lvl (test code = Calcium Lvl) 9.4 8.5-10.5 [place] 542560-03-29 07:19:00 Test Item Value Reference Range Interpretation Comments AGAP (test code = AGAP) 8.2 10.0-20.0 [place] 542560-03-29 07:19:00 Test Item Value Reference Range Interpretation Comments eGFR (test code = eGFR) 45 [place] 542560-03-29 07:19:00 Test Item Value Reference Range Interpretation Comments Magnesium Lvl (test code = Magnesium 2.2 1.8-2.4 Lvl) [facility] CenterOoiwghiYTGXXSBVIQ3089-32-67 07:19:00 Test Item Value Reference Range Interpretation Comments Segs (test code = Segs) 50.3 45.0-75.0 [place] [address]-03-29 07:19:00 Test Item Value Reference Range Interpretation Comments Lymphocytes (test code = Lymphocytes) 32.5 20.0-40.0 [place] [address]-03-29 07:19:00 Test Item Value Reference Range Interpretation Comments Monocytes (test code = Monocytes) 12.2 2.0-12.0 [place] 519360-03-29 07:19:00 Test Item Value Reference Range Interpretation Comments Eosinophils (test code = 3.3 See_Comment [A utomated message] The Eosinophils) system which ge nerated this result tra nsmitted reference range : <=4.0. The reference r patria was not used to int erpret this result as normal/abnormal . [facility] CenterTrykbwmBIPYVXNJIY8788-95-76 07:19:00 Test Item Value Reference Range Interpretation Comments Basophils (test code = 1.7 See_Comment [Aut omated message] The Basophils) system which ge nerated this result tra nsmitted reference range : <=1.0. The reference r patria was not used to int erpret this result as normal/abnormal . [place] 519360-03-29 07:19:00 Test Item Value Reference Range Interpretation Comments Neutrophils # (test code = Neutrophils 3.2 1.5-8.1 #) [place] 519360-03-29 07:19:00 Test Item Value Reference Range Interpretation Comments Lymphocytes # (test code = Lymphocytes 2.1 1.0-5.5 #) [place] 519360-03-29 07:19:00 Test Item Value Reference Range Interpretation Comments Monocytes # (test code 0.8 See_Comment [Aut omated message] The = Monocytes #) system which generated this result tra nsmitted reference range : <=0.8. The reference r patria was not used to int erpret this result as normal/abnormal . [facility] CenterLjvudqnBUTPOCBDVO9204-43-96 07:19:00 Test Item Value Reference Range Interpretation Comments Eosinophils # (test code 0.2 See_Comment [A utomated message] The = Eosinophils #) system whic h generated this result tra nsmitted reference range : <=0.5. The reference r patria was not used to int erpret this result as normal/abnormal . [facility] CenterLtdgpqnQXQLLRNYUU5773-02-81 07:19:00 Test Item Value Reference Range Interpretation Comments Basophils # (test code 0.1 See_Comment [Aut omated message] The = Basophils #) system which generated this result tra nsmitted reference range : <=0.2. The reference r patria was not used to int erpret this result as normal/abnormal . [facility] CenterGzoxgmsNMPSKUCZHF8741-11-67 07:19:00 Test Item Value Reference Range Interpretation Comments Macrocyte (test code = 1+ *ABN*(02/07/20 Macrocyte) 2:19 AM) [facility] CenterGlmcefaOZBZMKZUCK9933-32-01 07:19:00 Test Item Value Reference Range Interpretation Comments WBC (test code = WBC) 6.5 3.7-10.4 [facility] CenterAzxkmwtCXJCSHCNYD2318-08-90 07:19:00 Test Item Value Reference Range Interpretation Comments RBC (test code = RBC) 2.65 4.20-5.40 [facility] CenterChabpwiVZAIGNIRKL8527-63-04 07:19:00 Test Item Value Reference Range Interpretation Comments Hgb (test code = Hgb) 9.3 12.0-16.0 [facility] CenterVgvrgloCZSQXGNWYD4244-41-58 07:19:00 Test Item Value Reference Range Interpretation Comments Hct (test code = Hct) 27.6 36.0-48.0 [facility] CenterIfkiznwNUYHIUVWGD2858-61-93 07:19:00 Test Item Value Reference Range Interpretation Comments MCV (test code = MCV) 104.4 80.0-98.0 [facility] CenterYzqgcbuFTVSDVQHKW6982-59-12 07:19:00 Test Item Value Reference Range Interpretation Comments MCH (test code = MCH) 35.0 pg 27.0-31.0 [facility] CenterPilimjnIILBQJKQTB5991-27-82 07:19:00 Test Item Value Reference Range Interpretation Comments MCHC (test code = MCHC) 33.6 32.0-36.0 [facility] CenterLufnaoaSVHWFQNIWJ8233-39-77 07:19:00 Test Item Value Reference Range Interpretation Comments RDW (test code = RDW) 13.7 11.5-14.5 [facility] CenterVpmsdacNNNQTHTWSB7311-42-00 07:19:00 Test Item Value Reference Range Interpretation Comments Platelet (test code = Platelet) 423 133-450 [facility] CenterCfmvbrbDLRLYPGVJV1519-88-33 07:19:00 Test Item Value Reference Range Interpretation Comments MPV (test code = MPV) 7.1 7.4-10.4 [facility] OWFZERT8563-17-55 07:19:00 Test Item Value Reference Range Interpretation Comments Ca Ion WB (test code = Ca Ion WB) 1.18 1.05-1.25 [facility]RO[facility] [id number] 07:19:00 Test Item Value Reference Range Interpretation Comments Ca Norm WB (test code = Ca Norm WB) 1.21 1.05-1.25 [place] 542560-03-29 07:19:00 Test Item Value Reference Range Interpretation Comments Phosphorus (test code = Phosphorus) 3.6 2.5-4.5 [place] 542560-03-29 07:19:00 Test Item Value Reference Range Interpretation Comments Glucose Lvl (test code = Glucose Lvl) 78 70-99 [place] 542560-03-29 07:19:00 Test Item Value Reference Range Interpretation Comments BUN (test code = BUN) 32 7-22 [place] 542560-03-29 07:19:00 Test Item Value Reference Range Interpretation Comments Creatinine Lvl (test code = Creatinine 1.16 0.50-1.40 Lvl) [place] 542560-03-29 07:19:00 Test Item Value Reference Range Interpretation Comments Sodium Lvl (test code = Sodium Lvl) 137 135-145 [place] 542560-03-29 07:19:00 Test Item Value Reference Range Interpretation Comments Potassium Lvl (test code = Potassium 4.2 3.5-5.1 Lvl) [facility]2020-03-29 07:19:00 Test Item Value Reference Range Interpretation Comments Chloride Lvl (test code = Chloride Lvl) 108 95-109 [facility]2020-03-29 07:19:00 Test Item Value Reference Range Interpretation Comments CO2 (test code = CO2) 25 24-32 [place] 542560-03-29 07:19:00 Test Item Value Reference Range Interpretation Comments Calcium Lvl (test code = Calcium Lvl) 9.4 8.5-10.5 [place] 542560-03-29 07:19:00 Test Item Value Reference Range Interpretation Comments AGAP (test code = AGAP) 8.2 10.0-20.0 [place] 542560-03-29 07:19:00 Test Item Value Reference Range Interpretation Comments eGFR (test code = eGFR) 45 [place] 542560-03-29 07:19:00 Test Item Value Reference Range Interpretation Comments Magnesium Lvl (test code = Magnesium 2.2 1.8-2.4 Lvl) [facility] CenterOcwyqwcWZDBNARMOI3398-83-63 07:19:00 Test Item Value Reference Range Interpretation Comments Segs (test code = Segs) 50.3 45.0-75.0 [place] 519360-03-29 07:19:00 Test Item Value Reference Range Interpretation Comments Lymphocytes (test code = Lymphocytes) 32.5 20.0-40.0 [place] 519360-03-29 07:19:00 Test Item Value Reference Range Interpretation Comments Monocytes (test code = Monocytes) 12.2 2.0-12.0 [place] 519360-03-29 07:19:00 Test Item Value Reference Range Interpretation Comments Eosinophils (test code = 3.3 See_Comment [A utomated message] The Eosinophils) system which ge nerated this result tra nsmitted reference range : <=4.0. The reference r patria was not used to int erpret this result as normal/abnormal . [place] 519360-03-29 07:19:00 Test Item Value Reference Range Interpretation Comments Basophils (test code = 1.7 See_Comment [Aut omated message] The Basophils) system which ge nerated this result tra nsmitted reference range : <=1.0. The reference r patria was not used to int erpret this result as normal/abnormal . [facility] CenterKoahtqmZSNVZCMDYJ2908-19-45 07:19:00 Test Item Value Reference Range Interpretation Comments Neutrophils # (test code = Neutrophils 3.2 1.5-8.1 #) [place] 519360-03-29 07:19:00 Test Item Value Reference Range Interpretation Comments Lymphocytes # (test code = Lymphocytes 2.1 1.0-5.5 #) [place] 519360-03-29 07:19:00 Test Item Value Reference Range Interpretation Comments Monocytes # (test code 0.8 See_Comment [Aut omated message] The = Monocytes #) system which generated this result tra nsmitted reference range : <=0.8. The reference r patria was not used to int erpret this result as normal/abnormal . [place] 519360-03-29 07:19:00 Test Item Value Reference Range Interpretation Comments Eosinophils # (test code 0.2 See_Comment [A utomated message] The = Eosinophils #) system whic h generated this result tra nsmitted reference range : <=0.5. The reference r patria was not used to int erpret this result as normal/abnormal . [facility] CenterOcvmbazLVIVKHWSCQ1578-55-17 07:19:00 Test Item Value Reference Range Interpretation Comments Basophils # (test code 0.1 See_Comment [Aut omated message] The = Basophils #) system which generated this result tra nsmitted reference range : <=0.2. The reference r patria was not used to int erpret this result as normal/abnormal . [facility] CenterVadawfaYQELBINVNF5270-26-31 07:19:00 Test Item Value Reference Range Interpretation Comments Macrocyte (test code = 1+ *ABN*(02/07/20 Macrocyte) 2:19 AM) [facility] CenterNygoawcWWFDZDJFFC5039-89-73 07:19:00 Test Item Value Reference Range Interpretation Comments WBC (test code = WBC) 6.5 3.7-10.4 [facility] CenterPmhnrqpRPAKOWOADM3101-25-41 07:19:00 Test Item Value Reference Range Interpretation Comments RBC (test code = RBC) 2.65 4.20-5.40 [facility] CenterMlkndolVJOBBJSABE6373-46-36 07:19:00 Test Item Value Reference Range Interpretation Comments Hgb (test code = Hgb) 9.3 12.0-16.0 [facility] CenterBmdekbzHQBYQGXWRQ9019-25-38 07:19:00 Test Item Value Reference Range Interpretation Comments Hct (test code = Hct) 27.6 36.0-48.0 [facility] CenterAqfglndYIHIFTUZAF9773-88-02 07:19:00 Test Item Value Reference Range Interpretation Comments MCV (test code = MCV) 104.4 80.0-98.0 [place] 519360-03-29 07:19:00 Test Item Value Reference Range Interpretation Comments MCH (test code = MCH) 35.0 pg 27.0-31.0 [facility] CenterVrmnpfyHMGUYSRQRF6245-69-18 07:19:00 Test Item Value Reference Range Interpretation Comments MCHC (test code = MCHC) 33.6 32.0-36.0 [place] 519360-03-29 07:19:00 Test Item Value Reference Range Interpretation Comments RDW (test code = RDW) 13.7 11.5-14.5 [place] 519360-03-29 07:19:00 Test Item Value Reference Range Interpretation Comments Platelet (test code = Platelet) 423 133-450 [facility] HospitalIewpervJQMFJJESFJ9038-89-50 07:19:00 Test Item Value Reference Range Interpretation Comments MPV (test code = MPV) 7.1 7.4-10.4 [facility] HospitalPARATHYROID KWSCPYD6702-07-87 07:19:00 Test Item Value Reference Range Interpretation Comments Ca Ion WB (test code = Ca Ion WB) 1.18 1.05-1.25 [facility] [id number] 07:19:00 Test Item Value Reference Range Interpretation Comments Ca Norm WB (test code = Ca Norm WB) 1.21 1.05-1.25 [facility]2020-03-29 07:19:00 Test Item Value Reference Range Interpretation Comments Phosphorus (test code = Phosphorus) 3.6 2.5-4.5 [facility]2020-03-29 07:19:00 Test Item Value Reference Range Interpretation Comments Glucose Lvl (test code = Glucose Lvl) 78 70-99 [facility]2020-03-29 07:19:00 Test Item Value Reference Range Interpretation Comments BUN (test code = BUN) 32 7-22 [facility]2020-03-29 07:19:00 Test Item Value Reference Range Interpretation Comments Creatinine Lvl (test code = Creatinine 1.16 0.50-1.40 Lvl) [facility]2020-03-29 07:19:00 Test Item Value Reference Range Interpretation Comments Sodium Lvl (test code = Sodium Lvl) 137 135-145 [facility]2020-03-29 07:19:00 Test Item Value Reference Range Interpretation Comments Potassium Lvl (test code = Potassium 4.2 3.5-5.1 Lvl) [facility]2020-03-29 07:19:00 Test Item Value Reference Range Interpretation Comments Chloride Lvl (test code = Chloride Lvl) 108 95-109 [facility]2020-03-29 07:19:00 Test Item Value Reference Range Interpretation Comments CO2 (test code = CO2) 25 24-32 [place] 542560-03-29 07:19:00 Test Item Value Reference Range Interpretation Comments Calcium Lvl (test code = Calcium Lvl) 9.4 8.5-10.5 [place] [address]-03-29 07:19:00 Test Item Value Reference Range Interpretation Comments AGAP (test code = AGAP) 8.2 10.0-20.0 [place] [address]-03-29 07:19:00 Test Item Value Reference Range Interpretation Comments eGFR (test code = eGFR) 45 [place] 542560-03-29 07:19:00 Test Item Value Reference Range Interpretation Comments Magnesium Lvl (test code = Magnesium 2.2 1.8-2.4 Lvl) [place] [address]-03-29 07:19:00 Test Item Value Reference Range Interpretation Comments Segs (test code = Segs) 50.3 45.0-75.0 [place] [address]-03-29 07:19:00 Test Item Value Reference Range Interpretation Comments Lymphocytes (test code = Lymphocytes) 32.5 20.0-40.0 [place] [address]-03-29 07:19:00 Test Item Value Reference Range Interpretation Comments Monocytes (test code = Monocytes) 12.2 2.0-12.0 [place] [address]-03-29 07:19:00 Test Item Value Reference Range Interpretation Comments Eosinophils (test code = 3.3 See_Comment [A utomated message] The Eosinophils) system which ge nerated this result tra nsmitted reference range : <=4.0. The reference r patria was not used to int erpret this result as normal/abnormal . [place] [address]-03-29 07:19:00 Test Item Value Reference Range Interpretation Comments Basophils (test code = 1.7 See_Comment [Aut omated message] The Basophils) system which ge nerated this result tra nsmitted reference range : <=1.0. The reference r patria was not used to int erpret this result as normal/abnormal . [place] 519360-03-29 07:19:00 Test Item Value Reference Range Interpretation Comments Neutrophils # (test code = Neutrophils 3.2 1.5-8.1 #) [place] [address]-03-29 07:19:00 Test Item Value Reference Range Interpretation Comments Lymphocytes # (test code = Lymphocytes 2.1 1.0-5.5 #) [place] [address]-03-29 07:19:00 Test Item Value Reference Range Interpretation Comments Monocytes # (test code 0.8 See_Comment [Aut omated message] The = Monocytes #) system which generated this result tra nsmitted reference range : <=0.8. The reference r patria was not used to int erpret this result as normal/abnormal . [facility] CenterNmbyzstYIBMLNFCGH2053-60-57 07:19:00 Test Item Value Reference Range Interpretation Comments Eosinophils # (test code 0.2 See_Comment [A utomated message] The = Eosinophils #) system whic h generated this result tra nsmitted reference range : <=0.5. The reference r patria was not used to int erpret this result as normal/abnormal . [facility] CenterPftzxmuWWFTJCNPVT4612-58-29 07:19:00 Test Item Value Reference Range Interpretation Comments Basophils # (test code 0.1 See_Comment [Aut omated message] The = Basophils #) system which generated this result tra nsmitted reference range : <=0.2. The reference r patria was not used to int erpret this result as normal/abnormal . [facility] CenterIxylioeTJXAFKDMVS3675-11-61 07:19:00 Test Item Value Reference Range Interpretation Comments Macrocyte (test code = 1+ *ABN*(02/07/20 Macrocyte) 2:19 AM) [facility] CenterTzaliotOMWNMMLNGN2615-87-02 07:19:00 Test Item Value Reference Range Interpretation Comments WBC (test code = WBC) 6.5 3.7-10.4 [facility]qlcUOTOEBHDXI9699-45-95 07:19:00 Test Item Value Reference Range Interpretation Comments RBC (test code = RBC) 2.65 4.20-5.40 [facility]NmjaxxgMMBCPEMKBQ4958-18-13 07:19:00 Test Item Value Reference Range Interpretation Comments Hgb (test code = Hgb) 9.3 12.0-16.0 [place] 519360-03-29 07:19:00 Test Item Value Reference Range Interpretation Comments Hct (test code = Hct) 27.6 36.0-48.0 [place] 519360-03-29 07:19:00 Test Item Value Reference Range Interpretation Comments MCV (test code = MCV) 104.4 80.0-98.0 [place] 519360-03-29 07:19:00 Test Item Value Reference Range Interpretation Comments MCH (test code = MCH) 35.0 pg 27.0-31.0 [facility]aj[facility]qlpNRMVXKIZXC4076-69-01 07:19:00 Test Item Value Reference Range Interpretation Comments MCHC (test code = MCHC) 33.6 32.0-36.0 [facility]NixqodwAWOLGMVWGF9507-19-87 07:19:00 Test Item Value Reference Range Interpretation Comments RDW (test code = RDW) 13.7 11.5-14.5 [facility] CenterVbyjxtsKAWOKRIJGK1109-16-63 07:19:00 Test Item Value Reference Range Interpretation Comments Platelet (test code = Platelet) 423 133-450 [facility] CenterMkvvmrnKCMYJVTJWA8820-81-27 07:19:00 Test Item Value Reference Range Interpretation Comments MPV (test code = MPV) 7.1 7.4-10.4 [facility]PARATHYROID [id number] 07:19:00 Test Item Value Reference Range Interpretation Comments Ca Ion WB (test code = Ca Ion WB) 1.18 1.05-1.25 [facility] [id number] 07:19:00 Test Item Value Reference Range Interpretation Comments Ca Norm WB (test code = Ca Norm WB) 1.21 1.05-1.25 [facility] HospitalCHEM [id number] 07:19:00 Test Item Value Reference Range Interpretation Comments Phosphorus (test code = Phosphorus) 3.6 2.5-4.5 [facility]2020-03-29 07:19:00 Test Item Value Reference Range Interpretation Comments Glucose Lvl (test code = Glucose Lvl) 78 70-99 [facility]2020-03-29 07:19:00 Test Item Value Reference Range Interpretation Comments BUN (test code = BUN) 32 7-22 [facility]2020-03-29 07:19:00 Test Item Value Reference Range Interpretation Comments Creatinine Lvl (test code = Creatinine 1.16 0.50-1.40 Lvl) [facility]2020-03-29 07:19:00 Test Item Value Reference Range Interpretation Comments Sodium Lvl (test code = Sodium Lvl) 137 135-145 [facility]2020-03-29 07:19:00 Test Item Value Reference Range Interpretation Comments Potassium Lvl (test code = Potassium 4.2 3.5-5.1 Lvl) [facility]2020-03-29 07:19:00 Test Item Value Reference Range Interpretation Comments Chloride Lvl (test code = Chloride Lvl) 108 95-109 [place] 542560-03-29 07:19:00 Test Item Value Reference Range Interpretation Comments CO2 (test code = CO2) 25 24-32 [place] 542560-03-29 07:19:00 Test Item Value Reference Range Interpretation Comments Calcium Lvl (test code = Calcium Lvl) 9.4 8.5-10.5 [place] 542560-03-29 07:19:00 Test Item Value Reference Range Interpretation Comments AGAP (test code = AGAP) 8.2 10.0-20.0 [place] 542560-03-29 07:19:00 Test Item Value Reference Range Interpretation Comments eGFR (test code = eGFR) 45 [place] 542560-03-29 07:19:00 Test Item Value Reference Range Interpretation Comments Magnesium Lvl (test code = Magnesium 2.2 1.8-2.4 Lvl) [place] 519360-03-29 07:19:00 Test Item Value Reference Range Interpretation Comments Segs (test code = Segs) 50.3 45.0-75.0 [place] [address]-03-29 07:19:00 Test Item Value Reference Range Interpretation Comments Lymphocytes (test code = Lymphocytes) 32.5 20.0-40.0 [place] [address]-03-29 07:19:00 Test Item Value Reference Range Interpretation Comments Monocytes (test code = Monocytes) 12.2 2.0-12.0 [place] [address]-03-29 07:19:00 Test Item Value Reference Range Interpretation Comments Eosinophils (test code = 3.3 See_Comment [A utomated message] The Eosinophils) system which ge nerated this result tra nsmitted reference range : <=4.0. The reference r patria was not used to int erpret this result as normal/abnormal . [place] 519360-03-29 07:19:00 Test Item Value Reference Range Interpretation Comments Basophils (test code = 1.7 See_Comment [Aut omated message] The Basophils) system which ge nerated this result tra nsmitted reference range : <=1.0. The reference r patria was not used to int erpret this result as normal/abnormal . [facility] CenterGlrfozvXYDQYPMFEI4458-04-68 07:19:00 Test Item Value Reference Range Interpretation Comments Neutrophils # (test code = Neutrophils 3.2 1.5-8.1 #) [facility] CenterNwqrozdIFKOBPEIMY5482-58-80 07:19:00 Test Item Value Reference Range Interpretation Comments Lymphocytes # (test code = Lymphocytes 2.1 1.0-5.5 #) [place] 519360-03-29 07:19:00 Test Item Value Reference Range Interpretation Comments Monocytes # (test code 0.8 See_Comment [Aut omated message] The = Monocytes #) system which generated this result tra nsmitted reference range : <=0.8. The reference r patria was not used to int erpret this result as normal/abnormal . [place] 519360-03-29 07:19:00 Test Item Value Reference Range Interpretation Comments Eosinophils # (test code 0.2 See_Comment [A utomated message] The = Eosinophils #) system whic h generated this result tra nsmitted reference range : <=0.5. The reference r patria was not used to int erpret this result as normal/abnormal . [place] 519360-03-29 07:19:00 Test Item Value Reference Range Interpretation Comments Basophils # (test code 0.1 See_Comment [Aut omated message] The = Basophils #) system which generated this result tra nsmitted reference range : <=0.2. The reference r patria was not used to int erpret this result as normal/abnormal . [facility] CenterLtbdypsPZYUCCPLMQ9361-31-26 07:19:00 Test Item Value Reference Range Interpretation Comments Macrocyte (test code = 1+ *ABN*(02/07/20 Macrocyte) 2:19 AM) [place] 519360-03-29 07:19:00 Test Item Value Reference Range Interpretation Comments WBC (test code = WBC) 6.5 3.7-10.4 [place] 519360-03-29 07:19:00 Test Item Value Reference Range Interpretation Comments RBC (test code = RBC) 2.65 4.20-5.40 [place] 519360-03-29 07:19:00 Test Item Value Reference Range Interpretation Comments Hgb (test code = Hgb) 9.3 12.0-16.0 [facility] ServicesKvdsavwJINUFBJSDC0612-01-61 07:19:00 Test Item Value Reference Range Interpretation Comments Hct (test code = Hct) 27.6 36.0-48.0 [facility] CenterJdzjigsELXKHPSAJA1193-55-66 07:19:00 Test Item Value Reference Range Interpretation Comments MCV (test code = MCV) 104.4 80.0-98.0 [facility] ServicesMmqolokTCCAMFGLGL8432-14-45 07:19:00 Test Item Value Reference Range Interpretation Comments MCH (test code = MCH) 35.0 pg 27.0-31.0 [facility] CenterPbqmavoQIGEIOYFOF6678-90-25 07:19:00 Test Item Value Reference Range Interpretation Comments MCHC (test code = MCHC) 33.6 32.0-36.0 [facility] CenterMecphybTFSICTPZSN1372-49-43 07:19:00 Test Item Value Reference Range Interpretation Comments RDW (test code = RDW) 13.7 11.5-14.5 [facility] HospitalPkfhtxhMDSEIQFXJN0837-02-64 07:19:00 Test Item Value Reference Range Interpretation Comments Platelet (test code = Platelet) 423 133-450 [facility] CenterWlcqmvzVTRTCUAXXR1669-03-69 07:19:00 Test Item Value Reference Range Interpretation Comments MPV (test code = MPV) 7.1 7.4-10.4 [facility] HospitalPARATHYROID UXGTEFN7361-07-55 07:19:00 Test Item Value Reference Range Interpretation Comments Ca Ion WB (test code = Ca Ion WB) 1.18 1.05-1.25 [facility] HospitalPARATHYROID [id number] 07:19:00 Test Item Value Reference Range Interpretation Comments Ca Norm WB (test code = Ca Norm WB) 1.21 1.05-1.25 [facility]CHE[facility] [id number] 07:19:00 Test Item Value Reference Range Interpretation Comments Phosphorus (test code = Phosphorus) 3.6 2.5-4.5 [facility]2020-03-29 07:19:00 Test Item Value Reference Range Interpretation Comments Glucose Lvl (test code = Glucose Lvl) 78 70-99 [facility]2020-03-29 07:19:00 Test Item Value Reference Range Interpretation Comments BUN (test code = BUN) 32 7-22 [facility]2020-03-29 07:19:00 Test Item Value Reference Range Interpretation Comments Creatinine Lvl (test code = Creatinine 1.16 0.50-1.40 Lvl) [facility]2020-03-29 07:19:00 Test Item Value Reference Range Interpretation Comments Sodium Lvl (test code = Sodium Lvl) 137 135-145 [place] 542560-03-29 07:19:00 Test Item Value Reference Range Interpretation Comments Potassium Lvl (test code = Potassium 4.2 3.5-5.1 Lvl) [facility]2020-03-29 07:19:00 Test Item Value Reference Range Interpretation Comments Chloride Lvl (test code = Chloride Lvl) 108 95-109 [facility]2020-03-29 07:19:00 Test Item Value Reference Range Interpretation Comments CO2 (test code = CO2) 25 24-32 [facility]2020-03-29 07:19:00 Test Item Value Reference Range Interpretation Comments Calcium Lvl (test code = Calcium Lvl) 9.4 8.5-10.5 [facility]2020-03-29 07:19:00 Test Item Value Reference Range Interpretation Comments AGAP (test code = AGAP) 8.2 10.0-20.0 [facility]2020-03-29 07:19:00 Test Item Value Reference Range Interpretation Comments eGFR (test code = eGFR) 45 [facility]2020-03-29 07:19:00 Test Item Value Reference Range Interpretation Comments Magnesium Lvl (test code = Magnesium 2.2 1.8-2.4 Lvl) [facility]RqlkdjdTTADNBJJPA4817-39-60 07:19:00 Test Item Value Reference Range Interpretation Comments Segs (test code = Segs) 50.3 45.0-75.0 [facility] CenterKktethxRYODQRBNBY0401-59-75 07:19:00 Test Item Value Reference Range Interpretation Comments Lymphocytes (test code = Lymphocytes) 32.5 20.0-40.0 [facility] CenterMpwrwfyTLYQLNSJXT6064-99-98 07:19:00 Test Item Value Reference Range Interpretation Comments Monocytes (test code = Monocytes) 12.2 2.0-12.0 [place] 519360-03-29 07:19:00 Test Item Value Reference Range Interpretation Comments Eosinophils (test code = 3.3 See_Comment [A utomated message] The Eosinophils) system which ge nerated this result tra nsmitted reference range : <=4.0. The reference r patria was not used to int erpret this result as normal/abnormal . [facility] CenterHwdwyjtMNJCCOJYPN5924-91-50 07:19:00 Test Item Value Reference Range Interpretation Comments Basophils (test code = 1.7 See_Comment [Aut omated message] The Basophils) system which ge nerated this result tra nsmitted reference range : <=1.0. The reference r patria was not used to int erpret this result as normal/abnormal . [facility] CenterXvjivvnJZOYUNYAIH3930-10-34 07:19:00 Test Item Value Reference Range Interpretation Comments Neutrophils # (test code = Neutrophils 3.2 1.5-8.1 #) [facility] CenterRxladgfFIFJPQUSNQ9916-00-87 07:19:00 Test Item Value Reference Range Interpretation Comments Lymphocytes # (test code = Lymphocytes 2.1 1.0-5.5 #) [place] 519360-03-29 07:19:00 Test Item Value Reference Range Interpretation Comments Monocytes # (test code 0.8 See_Comment [Aut omated message] The = Monocytes #) system which generated this result tra nsmitted reference range : <=0.8. The reference r patria was not used to int erpret this result as normal/abnormal . [facility] CenterIgmywubOXRINSRDAG1369-09-91 07:19:00 Test Item Value Reference Range Interpretation Comments Eosinophils # (test code 0.2 See_Comment [A utomated message] The = Eosinophils #) system whic h generated this result tra nsmitted reference range : <=0.5. The reference r patria was not used to int erpret this result as normal/abnormal . [facility] CenterXwavavvKUHAQANLUQ0784-15-89 07:19:00 Test Item Value Reference Range Interpretation Comments Basophils # (test code 0.1 See_Comment [Aut omated message] The = Basophils #) system which generated this result tra nsmitted reference range : <=0.2. The reference r patria was not used to int erpret this result as normal/abnormal . [facility] CenterTpkkpnoXLKKKHFHNM1203-89-57 07:19:00 Test Item Value Reference Range Interpretation Comments Macrocyte (test code = 1+ *ABN*(02/07/20 Macrocyte) 2:19 AM) [facility] CenterNvtvxvvKDBSSGBSCB7527-42-79 07:19:00 Test Item Value Reference Range Interpretation Comments WBC (test code = WBC) 6.5 3.7-10.4 [facility] CenterEdwfvkzOKOAGOHIJA3175-42-51 07:19:00 Test Item Value Reference Range Interpretation Comments RBC (test code = RBC) 2.65 4.20-5.40 [facility] CenterWvnkkffJZWGQWVOFA3906-45-74 07:19:00 Test Item Value Reference Range Interpretation Comments Hgb (test code = Hgb) 9.3 12.0-16.0 [facility] CenterRdwjvadAMBZBPKCSU2746-21-58 07:19:00 Test Item Value Reference Range Interpretation Comments Hct (test code = Hct) 27.6 36.0-48.0 [facility] CenterBvgebnmKJIYXKUJAA1707-20-57 07:19:00 Test Item Value Reference Range Interpretation Comments MCV (test code = MCV) 104.4 80.0-98.0 [facility] CenterHyuhuoiTELURDSOLR4605-28-70 07:19:00 Test Item Value Reference Range Interpretation Comments MCH (test code = MCH) 35.0 pg 27.0-31.0 [facility] CenterNbgftmmSXFSKUKMTM5571-98-35 07:19:00 Test Item Value Reference Range Interpretation Comments MCHC (test code = MCHC) 33.6 32.0-36.0 [facility] CenterLkbyznrXZIXTRHIYI1669-33-41 07:19:00 Test Item Value Reference Range Interpretation Comments RDW (test code = RDW) 13.7 11.5-14.5 [facility] CenterZtlyxvtNNAPOFZZHI8385-91-98 07:19:00 Test Item Value Reference Range Interpretation Comments Platelet (test code = Platelet) 423 133-450 [facility] CenterPpykhwuEVUGWKPFHN8768-35-06 07:19:00 Test Item Value Reference Range Interpretation Comments MPV (test code = MPV) 7.1 7.4-10.4 [facility]PAR[facility]ROID [id number] 07:19:00 Test Item Value Reference Range Interpretation Comments Ca Ion WB (test code = Ca Ion WB) 1.18 1.05-1.25 [facility] JEWGCEF6946-60-45 07:19:00 Test Item Value Reference Range Interpretation Comments Ca Norm WB (test code = Ca Norm WB) 1.21 1.05-1.25 [place] 542560-03-29 07:19:00 Test Item Value Reference Range Interpretation Comments Phosphorus (test code = Phosphorus) 3.6 2.5-4.5 [place] 542560-03-29 07:19:00 Test Item Value Reference Range Interpretation Comments Glucose Lvl (test code = Glucose Lvl) 78 70-99 [place] 542560-03-29 07:19:00 Test Item Value Reference Range Interpretation Comments BUN (test code = BUN) 32 7-22 [place] 542560-03-29 07:19:00 Test Item Value Reference Range Interpretation Comments Creatinine Lvl (test code = Creatinine 1.16 0.50-1.40 Lvl) [place] 542560-03-29 07:19:00 Test Item Value Reference Range Interpretation Comments Sodium Lvl (test code = Sodium Lvl) 137 135-145 [place] 542560-03-29 07:19:00 Test Item Value Reference Range Interpretation Comments Potassium Lvl (test code = Potassium 4.2 3.5-5.1 Lvl) [place] 542560-03-29 07:19:00 Test Item Value Reference Range Interpretation Comments Chloride Lvl (test code = Chloride Lvl) 108 95-109 [place] 542560-03-29 07:19:00 Test Item Value Reference Range Interpretation Comments CO2 (test code = CO2) 25 24-32 [place] 542560-03-29 07:19:00 Test Item Value Reference Range Interpretation Comments Calcium Lvl (test code = Calcium Lvl) 9.4 8.5-10.5 [place] 542560-03-29 07:19:00 Test Item Value Reference Range Interpretation Comments AGAP (test code = AGAP) 8.2 10.0-20.0 [place] 542560-03-29 07:19:00 Test Item Value Reference Range Interpretation Comments eGFR (test code = eGFR) 45 [place] 542560-03-29 07:19:00 Test Item Value Reference Range Interpretation Comments Magnesium Lvl (test code = Magnesium 2.2 1.8-2.4 Lvl) [place] 519360-03-29 07:19:00 Test Item Value Reference Range Interpretation Comments Segs (test code = Segs) 50.3 45.0-75.0 [place] 519360-03-29 07:19:00 Test Item Value Reference Range Interpretation Comments Lymphocytes (test code = Lymphocytes) 32.5 20.0-40.0 [place] 519360-03-29 07:19:00 Test Item Value Reference Range Interpretation Comments Monocytes (test code = Monocytes) 12.2 2.0-12.0 [place] [address]-03-29 07:19:00 Test Item Value Reference Range Interpretation Comments Eosinophils (test code = 3.3 See_Comment [A utomated message] The Eosinophils) system which ge nerated this result tra nsmitted reference range : <=4.0. The reference r patria was not used to int erpret this result as normal/abnormal . [place] 519360-03-29 07:19:00 Test Item Value Reference Range Interpretation Comments Basophils (test code = 1.7 See_Comment [Aut omated message] The Basophils) system which ge nerated this result tra nsmitted reference range : <=1.0. The reference r patria was not used to int erpret this result as normal/abnormal . [place] 519360-03-29 07:19:00 Test Item Value Reference Range Interpretation Comments Neutrophils # (test code = Neutrophils 3.2 1.5-8.1 #) [place] 519360-03-29 07:19:00 Test Item Value Reference Range Interpretation Comments Lymphocytes # (test code = Lymphocytes 2.1 1.0-5.5 #) [place] [address]-03-29 07:19:00 Test Item Value Reference Range Interpretation Comments Monocytes # (test code 0.8 See_Comment [Aut omated message] The = Monocytes #) system which generated this result tra nsmitted reference range : <=0.8. The reference r patria was not used to int erpret this result as normal/abnormal . [place] 519360-03-29 07:19:00 Test Item Value Reference Range Interpretation Comments Eosinophils # (test code 0.2 See_Comment [A utomated message] The = Eosinophils #) system whic h generated this result tra nsmitted reference range : <=0.5. The reference r patria was not used to int erpret this result as normal/abnormal . [facility] CenterJnwuydpRLRJXAELXY7259-76-48 07:19:00 Test Item Value Reference Range Interpretation Comments Basophils # (test code 0.1 See_Comment [Aut omated message] The = Basophils #) system which generated this result tra nsmitted reference range : <=0.2. The reference r patria was not used to int erpret this result as normal/abnormal . [facility] CenterGnabidmBMHQIVWDTU8885-85-13 07:19:00 Test Item Value Reference Range Interpretation Comments Macrocyte (test code = 1+ *ABN*(02/07/20 Macrocyte) 2:19 AM) [facility] CenterFhehpgdDOBEAZNFAI9645-84-55 07:19:00 Test Item Value Reference Range Interpretation Comments WBC (test code = WBC) 6.5 3.7-10.4 [facility] CenterVkfjgbqPBAKQPNGUW5858-33-79 07:19:00 Test Item Value Reference Range Interpretation Comments RBC (test code = RBC) 2.65 4.20-5.40 [facility] CenterLwtjwdfPKWAPNCYVC4751-45-04 07:19:00 Test Item Value Reference Range Interpretation Comments Hgb (test code = Hgb) 9.3 12.0-16.0 [facility] CenterBqpnfjtGMBOBFXPFH1544-98-47 07:19:00 Test Item Value Reference Range Interpretation Comments Hct (test code = Hct) 27.6 36.0-48.0 [facility] CenterGhlpvtoFXJOKVLKOJ5766-16-93 07:19:00 Test Item Value Reference Range Interpretation Comments MCV (test code = MCV) 104.4 80.0-98.0 [facility] CenterEywjvtrISFZRUGORG1807-01-22 07:19:00 Test Item Value Reference Range Interpretation Comments MCH (test code = MCH) 35.0 pg 27.0-31.0 [facility] CenterJiyncqvEXHFMFVKTU6600-89-37 07:19:00 Test Item Value Reference Range Interpretation Comments MCHC (test code = MCHC) 33.6 32.0-36.0 [facility] CenterNvbjemdKLNONANCJI2167-63-86 07:19:00 Test Item Value Reference Range Interpretation Comments RDW (test code = RDW) 13.7 11.5-14.5 [place] 519360-03-29 07:19:00 Test Item Value Reference Range Interpretation Comments Platelet (test code = Platelet) 423 133-450 [place] 519360-03-29 07:19:00 Test Item Value Reference Range Interpretation Comments MPV (test code = MPV) 7.1 7.4-10.4 [facility]2020-03-29 07:19:00 Test Item Value Reference Range Interpretation Comments Ca Ion WB (test code = Ca Ion WB) 1.18 1.05-1.25 [place] 022580-03-29 07:19:00 Test Item Value Reference Range Interpretation Comments Ca Norm WB (test code = Ca Norm WB) 1.21 1.05-1.25 [facility]2020-03-28 05:36:00 Test Item Value Reference Range Interpretation Comments Vitamin B12 Lvl (test code = Vitamin [phone] B12 Lvl) [facility]2020-03-28 05:36:00 Test Item Value Reference Range Interpretation Comments Folate Lvl (test code = Folate Lvl) 36.8 [place] 542560-03-28 05:36:00 Test Item Value Reference Range Interpretation Comments Glucose Lvl (test code = Glucose Lvl) 96 70-99 [place] 542560-03-28 05:36:00 Test Item Value Reference Range Interpretation Comments BUN (test code = BUN) 26 7-22 [place] 542560-03-28 05:36:00 Test Item Value Reference Range Interpretation Comments Creatinine Lvl (test code = Creatinine 1.11 0.50-1.40 Lvl) [facility]2020-03-28 05:36:00 Test Item Value Reference Range Interpretation Comments Sodium Lvl (test code = Sodium Lvl) 139 135-145 [place] 542560-03-28 05:36:00 Test Item Value Reference Range Interpretation Comments Potassium Lvl (test code = Potassium 4.0 3.5-5.1 Lvl) [place] 542560-03-28 05:36:00 Test Item Value Reference Range Interpretation Comments Chloride Lvl (test code = Chloride Lvl) 107 95-109 [place] 542560-03-28 05:36:00 Test Item Value Reference Range Interpretation Comments CO2 (test code = CO2) 25 24-32 [facility]2020-03-28 05:36:00 Test Item Value Reference Range Interpretation Comments Calcium Lvl (test code = Calcium Lvl) 9.1 8.5-10.5 [facility]2020-03-28 05:36:00 Test Item Value Reference Range Interpretation Comments AGAP (test code = AGAP) 11.0 10.0-20.0 [place] 542560-03-28 05:36:00 Test Item Value Reference Range Interpretation Comments eGFR (test code = eGFR) 47 [facility]2020-03-28 05:36:00 Test Item Value Reference Range Interpretation Comments Magnesium Lvl (test code = Magnesium 2.2 1.8-2.4 Lvl) [facility]2020-03-28 05:36:00 Test Item Value Reference Range Interpretation Comments Phosphorus (test code = Phosphorus) 2.4 2.5-4.5 [place] 519360-03-28 05:36:00 Test Item Value Reference Range Interpretation Comments WBC (test code = WBC) 6.1 3.7-10.4 [facility] CenterLddgdtrMAPAQDJWUK0745-35-74 05:36:00 Test Item Value Reference Range Interpretation Comments RBC (test code = RBC) 2.54 4.20-5.40 [facility] CenterMtjgedqLIJZTIZZBX5579-57-54 05:36:00 Test Item Value Reference Range Interpretation Comments Hgb (test code = Hgb) 8.9 12.0-16.0 [place] 519360-03-28 05:36:00 Test Item Value Reference Range Interpretation Comments Hct (test code = Hct) 26.4 36.0-48.0 [place] [address]-03-28 05:36:00 Test Item Value Reference Range Interpretation Comments MCV (test code = MCV) 104.0 80.0-98.0 [place] [address]-03-28 05:36:00 Test Item Value Reference Range Interpretation Comments MCH (test code = MCH) 35.2 pg 27.0-31.0 [place] 519360-03-28 05:36:00 Test Item Value Reference Range Interpretation Comments MCHC (test code = MCHC) 33.8 32.0-36.0 [place] [address]-03-28 05:36:00 Test Item Value Reference Range Interpretation Comments RDW (test code = RDW) 13.4 11.5-14.5 [place] 519360-03-28 05:36:00 Test Item Value Reference Range Interpretation Comments Platelet (test code = Platelet) 402 133-450 [place] 519360-03-28 05:36:00 Test Item Value Reference Range Interpretation Comments MPV (test code = MPV) 7.2 7.4-10.4 [place] 519360-03-28 05:36:00 Test Item Value Reference Range Interpretation Comments Segs (test code = Segs) 56.0 45.0-75.0 [place] [address]-03-28 05:36:00 Test Item Value Reference Range Interpretation Comments Lymphocytes (test code = Lymphocytes) 25.9 20.0-40.0 [place] [address]-03-28 05:36:00 Test Item Value Reference Range Interpretation Comments Monocytes (test code = Monocytes) 13.4 2.0-12.0 [facility] CenterAujeqciNJMVYBYJSH3987-15-04 05:36:00 Test Item Value Reference Range Interpretation Comments Eosinophils (test code = 3.2 See_Comment [A utomated message] The Eosinophils) system which ge nerated this result tra nsmitted reference range : <=4.0. The reference r patria was not used to int erpret this result as normal/abnormal . [facility]skblmvGVFMYCFPGH1145-60-56 05:36:00 Test Item Value Reference Range Interpretation Comments Basophils (test code = 1.5 See_Comment [Aut omated message] The Basophils) system which ge nerated this result tra nsmitted reference range : <=1.0. The reference r patria was not used to int erpret this result as normal/abnormal . [place] 519360-03-28 05:36:00 Test Item Value Reference Range Interpretation Comments Neutrophils # (test code = Neutrophils 3.4 1.5-8.1 #) [place] 519360-03-28 05:36:00 Test Item Value Reference Range Interpretation Comments Lymphocytes # (test code = Lymphocytes 1.6 1.0-5.5 #) [place] 519360-03-28 05:36:00 Test Item Value Reference Range Interpretation Comments Monocytes # (test code 0.8 See_Comment [Aut omated message] The = Monocytes #) system which generated this result tra nsmitted reference range : <=0.8. The reference r patria was not used to int erpret this result as normal/abnormal . [facility] CenterVtvllezDZVWBBGEHD5860-70-81 05:36:00 Test Item Value Reference Range Interpretation Comments Eosinophils # (test code 0.2 See_Comment [A utomated message] The = Eosinophils #) system whic h generated this result tra nsmitted reference range : <=0.5. The reference r patria was not used to int erpret this result as normal/abnormal . [facility] CenterIhgmkkgBBTOUOZESF8040-26-31 05:36:00 Test Item Value Reference Range Interpretation Comments Basophils # (test code 0.1 See_Comment [Aut omated message] The = Basophils #) system which generated this result tra nsmitted reference range : <=0.2. The reference r patria was not used to int erpret this result as normal/abnormal . [facility] CenterKdoexumLAVILWDIRU1332-08-16 05:36:00 Test Item Value Reference Range Interpretation Comments Macrocyte (test code = 1+ *ABN*(02/06/20 Macrocyte) 12:36 AM) [facility]2020-03-28 05:36:00 Test Item Value Reference Range Interpretation Comments Ca Ion WB (test code = Ca Ion WB) 1.16 1.05-1.25 [facility]2020-03-28 05:36:00 Test Item Value Reference Range Interpretation Comments Ca Norm WB (test code = Ca Norm WB) 1.18 1.05-1.25 [facility]2020-03-28 05:36:00 Test Item Value Reference Range Interpretation Comments Vitamin B12 Lvl (test code = Vitamin [phone] B12 Lvl) [facility]2020-03-28 05:36:00 Test Item Value Reference Range Interpretation Comments Folate Lvl (test code = Folate Lvl) 36.8 [facility]2020-03-28 05:36:00 Test Item Value Reference Range Interpretation Comments Glucose Lvl (test code = Glucose Lvl) 96 70-99 [place] 542560-03-28 05:36:00 Test Item Value Reference Range Interpretation Comments BUN (test code = BUN) 26 7-22 [place] 542560-03-28 05:36:00 Test Item Value Reference Range Interpretation Comments Creatinine Lvl (test code = Creatinine 1.11 0.50-1.40 Lvl) [place] 542560-03-28 05:36:00 Test Item Value Reference Range Interpretation Comments Sodium Lvl (test code = Sodium Lvl) 139 135-145 [place] 542560-03-28 05:36:00 Test Item Value Reference Range Interpretation Comments Potassium Lvl (test code = Potassium 4.0 3.5-5.1 Lvl) [place] 542560-03-28 05:36:00 Test Item Value Reference Range Interpretation Comments Chloride Lvl (test code = Chloride Lvl) 107 95-109 [place] 542560-03-28 05:36:00 Test Item Value Reference Range Interpretation Comments CO2 (test code = CO2) 25 24-32 [place] 542560-03-28 05:36:00 Test Item Value Reference Range Interpretation Comments Calcium Lvl (test code = Calcium Lvl) 9.1 8.5-10.5 [place] 542560-03-28 05:36:00 Test Item Value Reference Range Interpretation Comments AGAP (test code = AGAP) 11.0 10.0-20.0 [place] 542560-03-28 05:36:00 Test Item Value Reference Range Interpretation Comments eGFR (test code = eGFR) 47 [place] 542560-03-28 05:36:00 Test Item Value Reference Range Interpretation Comments Magnesium Lvl (test code = Magnesium 2.2 1.8-2.4 Lvl) [place] 542560-03-28 05:36:00 Test Item Value Reference Range Interpretation Comments Phosphorus (test code = Phosphorus) 2.4 2.5-4.5 [place] 519360-03-28 05:36:00 Test Item Value Reference Range Interpretation Comments WBC (test code = WBC) 6.1 3.7-10.4 [place] [address]-03-28 05:36:00 Test Item Value Reference Range Interpretation Comments RBC (test code = RBC) 2.54 4.20-5.40 [facility] CenterJazwaeaMNIBCPUSKV1899-65-29 05:36:00 Test Item Value Reference Range Interpretation Comments Hgb (test code = Hgb) 8.9 12.0-16.0 [facility] CenterZztsosuCHSHPMQRDZ3961-59-08 05:36:00 Test Item Value Reference Range Interpretation Comments Hct (test code = Hct) 26.4 36.0-48.0 [facility] CenterLdghqjuZPONGAMQGA3689-46-41 05:36:00 Test Item Value Reference Range Interpretation Comments MCV (test code = MCV) 104.0 80.0-98.0 [facility] CenterEebraqsTKYZUFZCWC4242-04-57 05:36:00 Test Item Value Reference Range Interpretation Comments MCH (test code = MCH) 35.2 pg 27.0-31.0 [facility] CenterQhypaftVXADCIJVYI8709-40-48 05:36:00 Test Item Value Reference Range Interpretation Comments MCHC (test code = MCHC) 33.8 32.0-36.0 [facility] CenterXbhfxycEAFGZAXASM8846-39-89 05:36:00 Test Item Value Reference Range Interpretation Comments RDW (test code = RDW) 13.4 11.5-14.5 [facility] CenterQawcsxkZMXRTJIVEA6236-61-61 05:36:00 Test Item Value Reference Range Interpretation Comments Platelet (test code = Platelet) 402 133-450 [facility] CenterYfmthxbJVAJZUJDBR8037-31-15 05:36:00 Test Item Value Reference Range Interpretation Comments MPV (test code = MPV) 7.2 7.4-10.4 [facility] CenterAimzbuvIXFXDXILVG0149-42-25 05:36:00 Test Item Value Reference Range Interpretation Comments Segs (test code = Segs) 56.0 45.0-75.0 [facility] CenterEnrsnbqNIPOKBFFRK6573-02-76 05:36:00 Test Item Value Reference Range Interpretation Comments Lymphocytes (test code = Lymphocytes) 25.9 20.0-40.0 [facility] CenterKzjlicqHQISTFNANN1104-77-65 05:36:00 Test Item Value Reference Range Interpretation Comments Monocytes (test code = Monocytes) 13.4 2.0-12.0 [facility] CenterTugwfxrSOVMAVVNPL8367-65-08 05:36:00 Test Item Value Reference Range Interpretation Comments Eosinophils (test code = 3.2 See_Comment [A utomated message] The Eosinophils) system which ge nerated this result tra nsmitted reference range : <=4.0. The reference r patria was not used to int erpret this result as normal/abnormal . [facility] CenterCvwwshgDUIZXXHAMB7970-11-19 05:36:00 Test Item Value Reference Range Interpretation Comments Basophils (test code = 1.5 See_Comment [Aut omated message] The Basophils) system which ge nerated this result tra nsmitted reference range : <=1.0. The reference r patria was not used to int erpret this result as normal/abnormal . [facility] CenterOijrqmhSXCYCECJCH3924-28-81 05:36:00 Test Item Value Reference Range Interpretation Comments Neutrophils # (test code = Neutrophils 3.4 1.5-8.1 #) [facility] CenterYtkarlyJEJAHMRNGN9068-63-87 05:36:00 Test Item Value Reference Range Interpretation Comments Lymphocytes # (test code = Lymphocytes 1.6 1.0-5.5 #) [facility] CenterWcrtxpyIAYBSXTUSR8312-77-85 05:36:00 Test Item Value Reference Range Interpretation Comments Monocytes # (test code 0.8 See_Comment [Aut omated message] The = Monocytes #) system which generated this result tra nsmitted reference range : <=0.8. The reference r patria was not used to int erpret this result as normal/abnormal . [facility] CenterVyrpnmfZEWTMKXYLQ1311-12-37 05:36:00 Test Item Value Reference Range Interpretation Comments Eosinophils # (test code 0.2 See_Comment [A utomated message] The = Eosinophils #) system whic h generated this result tra nsmitted reference range : <=0.5. The reference r patria was not used to int erpret this result as normal/abnormal . [facility] CenterHftuykwQLSJWAIVOU4642-83-92 05:36:00 Test Item Value Reference Range Interpretation Comments Basophils # (test code 0.1 See_Comment [Aut omated message] The = Basophils #) system which generated this result tra nsmitted reference range : <=0.2. The reference r patria was not used to int erpret this result as normal/abnormal . [facility] CenterItipynvLPQFCJZDPZ1139-97-18 05:36:00 Test Item Value Reference Range Interpretation Comments Macrocyte (test code = 1+ *ABN*(02/06/20 Macrocyte) 12:36 AM) [facility]2020-03-28 05:36:00 Test Item Value Reference Range Interpretation Comments Ca Ion WB (test code = Ca Ion WB) 1.16 1.05-1.25 [facility]98 05:36:00 Test Item Value Reference Range Interpretation Comments Ca Norm WB (test code = Ca Norm WB) 1.18 1.05-1.25 [facility]2020-03-28 05:36:00 Test Item Value Reference Range Interpretation Comments Vitamin B12 Lvl (test code = Vitamin [phone] B12 Lvl) [facility]2020-03-28 05:36:00 Test Item Value Reference Range Interpretation Comments Folate Lvl (test code = Folate Lvl) 36.8 [place] 542560-03-28 05:36:00 Test Item Value Reference Range Interpretation Comments Glucose Lvl (test code = Glucose Lvl) 96 70-99 [place] 542560-03-28 05:36:00 Test Item Value Reference Range Interpretation Comments BUN (test code = BUN) 26 7-22 [facility]2020-03-28 05:36:00 Test Item Value Reference Range Interpretation Comments Creatinine Lvl (test code = Creatinine 1.11 0.50-1.40 Lvl) [facility]2020-03-28 05:36:00 Test Item Value Reference Range Interpretation Comments Sodium Lvl (test code = Sodium Lvl) 139 135-145 [facility]2020-03-28 05:36:00 Test Item Value Reference Range Interpretation Comments Potassium Lvl (test code = Potassium 4.0 3.5-5.1 Lvl) [facility]2020-03-28 05:36:00 Test Item Value Reference Range Interpretation Comments Chloride Lvl (test code = Chloride Lvl) 107 95-109 [place] 542560-03-28 05:36:00 Test Item Value Reference Range Interpretation Comments CO2 (test code = CO2) 25 24-32 [place] 542560-03-28 05:36:00 Test Item Value Reference Range Interpretation Comments Calcium Lvl (test code = Calcium Lvl) 9.1 8.5-10.5 [place] 542560-03-28 05:36:00 Test Item Value Reference Range Interpretation Comments AGAP (test code = AGAP) 11.0 10.0-20.0 [facility] [id number] 05:36:00 Test Item Value Reference Range Interpretation Comments eGFR (test code = eGFR) 47 [facility] [id number] 05:36:00 Test Item Value Reference Range Interpretation Comments Magnesium Lvl (test code = Magnesium 2.2 1.8-2.4 Lvl) [facility] LUNPR2327-34-73 05:36:00 Test Item Value Reference Range Interpretation Comments Phosphorus (test code = Phosphorus) 2.4 2.5-4.5 [facility] CenterNcgngmiXWJRGXAKKH1524-24-24 05:36:00 Test Item Value Reference Range Interpretation Comments WBC (test code = WBC) 6.1 3.7-10.4 [facility] CenterNshxtzuDBDXGTOHQO1602-33-03 05:36:00 Test Item Value Reference Range Interpretation Comments RBC (test code = RBC) 2.54 4.20-5.40 [facility] CenterUehewjzJGRFKKIDNO0616-47-57 05:36:00 Test Item Value Reference Range Interpretation Comments Hgb (test code = Hgb) 8.9 12.0-16.0 [facility] CenterQozuwetFWVMSUQZBZ1095-83-37 05:36:00 Test Item Value Reference Range Interpretation Comments Hct (test code = Hct) 26.4 36.0-48.0 [facility] CenterHdktzzjIMFRDLPATX0880-34-74 05:36:00 Test Item Value Reference Range Interpretation Comments MCV (test code = MCV) 104.0 80.0-98.0 [facility]OhwvdcbCWJNUVQZMK5835-12-53 05:36:00 Test Item Value Reference Range Interpretation Comments MCH (test code = MCH) 35.2 pg 27.0-31.0 [facility] ServicesWkhylmeFDYYZEOMVZ3895-99-27 05:36:00 Test Item Value Reference Range Interpretation Comments MCHC (test code = MCHC) 33.8 32.0-36.0 [facility] CenterWfdydgkSVJUHEINBM9004-31-22 05:36:00 Test Item Value Reference Range Interpretation Comments RDW (test code = RDW) 13.4 11.5-14.5 [facility] CenterQfpemmrGNOZGHTYFF9303-84-14 05:36:00 Test Item Value Reference Range Interpretation Comments Platelet (test code = Platelet) 402 133-450 [place] 519360-03-28 05:36:00 Test Item Value Reference Range Interpretation Comments MPV (test code = MPV) 7.2 7.4-10.4 [facility] CenterKmjsigoUXOYLQJYNR6530-08-05 05:36:00 Test Item Value Reference Range Interpretation Comments Segs (test code = Segs) 56.0 45.0-75.0 [place] 519360-03-28 05:36:00 Test Item Value Reference Range Interpretation Comments Lymphocytes (test code = Lymphocytes) 25.9 20.0-40.0 [place] 519360-03-28 05:36:00 Test Item Value Reference Range Interpretation Comments Monocytes (test code = Monocytes) 13.4 2.0-12.0 [place] 519360-03-28 05:36:00 Test Item Value Reference Range Interpretation Comments Eosinophils (test code = 3.2 See_Comment [A utomated message] The Eosinophils) system which ge nerated this result tra nsmitted reference range : <=4.0. The reference r patria was not used to int erpret this result as normal/abnormal . [facility] CenterWxfpaogNLTJMAQHGK3603-66-31 05:36:00 Test Item Value Reference Range Interpretation Comments Basophils (test code = 1.5 See_Comment [Aut omated message] The Basophils) system which ge nerated this result tra nsmitted reference range : <=1.0. The reference r patria was not used to int erpret this result as normal/abnormal . [facility] CenterOlqimgsWHGDHUZLQM0501-30-98 05:36:00 Test Item Value Reference Range Interpretation Comments Neutrophils # (test code = Neutrophils 3.4 1.5-8.1 #) [facility] CenterCjwnzeyJVLDILCCMD4811-76-71 05:36:00 Test Item Value Reference Range Interpretation Comments Lymphocytes # (test code = Lymphocytes 1.6 1.0-5.5 #) [place] [address]-03-28 05:36:00 Test Item Value Reference Range Interpretation Comments Monocytes # (test code 0.8 See_Comment [Aut omated message] The = Monocytes #) system which generated this result tra nsmitted reference range : <=0.8. The reference r patria was not used to int erpret this result as normal/abnormal . [place] 519360-03-28 05:36:00 Test Item Value Reference Range Interpretation Comments Eosinophils # (test code 0.2 See_Comment [A utomated message] The = Eosinophils #) system whic h generated this result tra nsmitted reference range : <=0.5. The reference r patria was not used to int erpret this result as normal/abnormal . [facility] CenterGtacsebUYBTKVLYMJ5501-96-24 05:36:00 Test Item Value Reference Range Interpretation Comments Basophils # (test code 0.1 See_Comment [Aut omated message] The = Basophils #) system which generated this result tra nsmitted reference range : <=0.2. The reference r patria was not used to int erpret this result as normal/abnormal . [facility] CenterYgnusuzHPJLFAJBSN4056-24-68 05:36:00 Test Item Value Reference Range Interpretation Comments Macrocyte (test code = 1+ *ABN*(02/06/20 Macrocyte) 12:36 AM) [facility]2020-03-28 05:36:00 Test Item Value Reference Range Interpretation Comments Ca Ion WB (test code = Ca Ion WB) 1.16 1.05-1.25 [place] 022580-03-28 05:36:00 Test Item Value Reference Range Interpretation Comments Ca Norm WB (test code = Ca Norm WB) 1.18 1.05-1.25 [facility]2020-03-28 05:36:00 Test Item Value Reference Range Interpretation Comments Vitamin B12 Lvl (test code = Vitamin [phone] B12 Lvl) [facility]2020-03-28 05:36:00 Test Item Value Reference Range Interpretation Comments Folate Lvl (test code = Folate Lvl) 36.8 [facility] CQOUH6026-43-79 05:36:00 Test Item Value Reference Range Interpretation Comments Glucose Lvl (test code = Glucose Lvl) 96 70-99 [facility] ZQUTG7516-87-32 05:36:00 Test Item Value Reference Range Interpretation Comments BUN (test code = BUN) 26 7-22 [place] 542560-03-28 05:36:00 Test Item Value Reference Range Interpretation Comments Creatinine Lvl (test code = Creatinine 1.11 0.50-1.40 Lvl) [facility]2020-03-28 05:36:00 Test Item Value Reference Range Interpretation Comments Sodium Lvl (test code = Sodium Lvl) 139 135-145 [place] 542560-03-28 05:36:00 Test Item Value Reference Range Interpretation Comments Potassium Lvl (test code = Potassium 4.0 3.5-5.1 Lvl) [facility]2020-03-28 05:36:00 Test Item Value Reference Range Interpretation Comments Chloride Lvl (test code = Chloride Lvl) 107 95-109 [place] 542560-03-28 05:36:00 Test Item Value Reference Range Interpretation Comments CO2 (test code = CO2) 25 24-32 [place] 542560-03-28 05:36:00 Test Item Value Reference Range Interpretation Comments Calcium Lvl (test code = Calcium Lvl) 9.1 8.5-10.5 [place] 542560-03-28 05:36:00 Test Item Value Reference Range Interpretation Comments AGAP (test code = AGAP) 11.0 10.0-20.0 [place] 542560-03-28 05:36:00 Test Item Value Reference Range Interpretation Comments eGFR (test code = eGFR) 47 [facility]2020-03-28 05:36:00 Test Item Value Reference Range Interpretation Comments Magnesium Lvl (test code = Magnesium 2.2 1.8-2.4 Lvl) [facility]2020-03-28 05:36:00 Test Item Value Reference Range Interpretation Comments Phosphorus (test code = Phosphorus) 2.4 2.5-4.5 [place] [address]-03-28 05:36:00 Test Item Value Reference Range Interpretation Comments WBC (test code = WBC) 6.1 3.7-10.4 [place] [address]-03-28 05:36:00 Test Item Value Reference Range Interpretation Comments RBC (test code = RBC) 2.54 4.20-5.40 [place] [address]-03-28 05:36:00 Test Item Value Reference Range Interpretation Comments Hgb (test code = Hgb) 8.9 12.0-16.0 [place] [address]-03-28 05:36:00 Test Item Value Reference Range Interpretation Comments Hct (test code = Hct) 26.4 36.0-48.0 [facility] CenterVcbvkbtLSONBVWHAX2996-33-70 05:36:00 Test Item Value Reference Range Interpretation Comments MCV (test code = MCV) 104.0 80.0-98.0 [facility] CenterKjvmkcwTTUDHDNCEL0805-75-17 05:36:00 Test Item Value Reference Range Interpretation Comments MCH (test code = MCH) 35.2 pg 27.0-31.0 [facility] CenterUubrrecIHJXFFGBUJ3396-54-30 05:36:00 Test Item Value Reference Range Interpretation Comments MCHC (test code = MCHC) 33.8 32.0-36.0 [place] 519360-03-28 05:36:00 Test Item Value Reference Range Interpretation Comments RDW (test code = RDW) 13.4 11.5-14.5 [facility] CenterIdxcbbkXQWSRGOVYC5660-26-01 05:36:00 Test Item Value Reference Range Interpretation Comments Platelet (test code = Platelet) 402 133-450 [facility] CenterGicwotfQKTEVWMOWF4180-09-31 05:36:00 Test Item Value Reference Range Interpretation Comments MPV (test code = MPV) 7.2 7.4-10.4 [place] 519360-03-28 05:36:00 Test Item Value Reference Range Interpretation Comments Segs (test code = Segs) 56.0 45.0-75.0 [facility] CenterTyzplrzSKUOIJSENG3778-18-77 05:36:00 Test Item Value Reference Range Interpretation Comments Lymphocytes (test code = Lymphocytes) 25.9 20.0-40.0 [place] 519360-03-28 05:36:00 Test Item Value Reference Range Interpretation Comments Monocytes (test code = Monocytes) 13.4 2.0-12.0 [place] [address]-03-28 05:36:00 Test Item Value Reference Range Interpretation Comments Eosinophils (test code = 3.2 See_Comment [A utomated message] The Eosinophils) system which ge nerated this result tra nsmitted reference range : <=4.0. The reference r patria was not used to int erpret this result as normal/abnormal . [facility] CenterIprqwqlKQTDGFYFPG8175-64-64 05:36:00 Test Item Value Reference Range Interpretation Comments Basophils (test code = 1.5 See_Comment [Aut omated message] The Basophils) system which ge nerated this result tra nsmitted reference range : <=1.0. The reference r patria was not used to int erpret this result as normal/abnormal . [place] 519360-03-28 05:36:00 Test Item Value Reference Range Interpretation Comments Neutrophils # (test code = Neutrophils 3.4 1.5-8.1 #) [facility] CenterDistytyTFWPBOLAPO7509-34-50 05:36:00 Test Item Value Reference Range Interpretation Comments Lymphocytes # (test code = Lymphocytes 1.6 1.0-5.5 #) [place] 519360-03-28 05:36:00 Test Item Value Reference Range Interpretation Comments Monocytes # (test code 0.8 See_Comment [Aut omated message] The = Monocytes #) system which generated this result tra nsmitted reference range : <=0.8. The reference r patria was not used to int erpret this result as normal/abnormal . [facility] CenterRqvbwuvOOVZRPHCJM6938-67-29 05:36:00 Test Item Value Reference Range Interpretation Comments Eosinophils # (test code 0.2 See_Comment [A utomated message] The = Eosinophils #) system whic h generated this result tra nsmitted reference range : <=0.5. The reference r patria was not used to int erpret this result as normal/abnormal . [facility] CenterTltfybxCKYZQFAHYU1749-96-60 05:36:00 Test Item Value Reference Range Interpretation Comments Basophils # (test code 0.1 See_Comment [Aut omated message] The = Basophils #) system which generated this result tra nsmitted reference range : <=0.2. The reference r patria was not used to int erpret this result as normal/abnormal . [facility] CenterUqtbyziFYNGMBWFPE7710-40-80 05:36:00 Test Item Value Reference Range Interpretation Comments Macrocyte (test code = 1+ *ABN*(02/06/20 Macrocyte) 12:36 AM) [place] 022580-03-28 05:36:00 Test Item Value Reference Range Interpretation Comments Ca Ion WB (test code = Ca Ion WB) 1.16 1.05-1.25 [place] 022580-03-28 05:36:00 Test Item Value Reference Range Interpretation Comments Ca Norm WB (test code = Ca Norm WB) 1.18 1.05-1.25 [facility]2020-03-28 05:36:00 Test Item Value Reference Range Interpretation Comments Vitamin B12 Lvl (test code = Vitamin [phone] B12 Lvl) [facility]2020-03-28 05:36:00 Test Item Value Reference Range Interpretation Comments Folate Lvl (test code = Folate Lvl) 36.8 [place] 542560-03-28 05:36:00 Test Item Value Reference Range Interpretation Comments Glucose Lvl (test code = Glucose Lvl) 96 70-99 [place] [address]-03-28 05:36:00 Test Item Value Reference Range Interpretation Comments BUN (test code = BUN) 26 7-22 [place] 542560-03-28 05:36:00 Test Item Value Reference Range Interpretation Comments Creatinine Lvl (test code = Creatinine 1.11 0.50-1.40 Lvl) [place] 542560-03-28 05:36:00 Test Item Value Reference Range Interpretation Comments Sodium Lvl (test code = Sodium Lvl) 139 135-145 [place] 542560-03-28 05:36:00 Test Item Value Reference Range Interpretation Comments Potassium Lvl (test code = Potassium 4.0 3.5-5.1 Lvl) [place] 542560-03-28 05:36:00 Test Item Value Reference Range Interpretation Comments Chloride Lvl (test code = Chloride Lvl) 107 95-109 [place] 542560-03-28 05:36:00 Test Item Value Reference Range Interpretation Comments CO2 (test code = CO2) 25 24-32 [place] 542560-03-28 05:36:00 Test Item Value Reference Range Interpretation Comments Calcium Lvl (test code = Calcium Lvl) 9.1 8.5-10.5 [place] 542560-03-28 05:36:00 Test Item Value Reference Range Interpretation Comments AGAP (test code = AGAP) 11.0 10.0-20.0 [place] 542560-03-28 05:36:00 Test Item Value Reference Range Interpretation Comments eGFR (test code = eGFR) 47 [place] 542560-03-28 05:36:00 Test Item Value Reference Range Interpretation Comments Magnesium Lvl (test code = Magnesium 2.2 1.8-2.4 Lvl) [facility] XFKUO0905-95-48 05:36:00 Test Item Value Reference Range Interpretation Comments Phosphorus (test code = Phosphorus) 2.4 2.5-4.5 [facility]XKRNRI3011-63-71 05:36:00 Test Item Value Reference Range Interpretation Comments WBC (test code = WBC) 6.1 3.7-10.4 [facility] ServicesTwwhrpnTLAJXBQLMA0797-83-62 05:36:00 Test Item Value Reference Range Interpretation Comments RBC (test code = RBC) 2.54 4.20-5.40 [facility] ServicesKrbtfofVANHBZYVCW3749-12-36 05:36:00 Test Item Value Reference Range Interpretation Comments Hgb (test code = Hgb) 8.9 12.0-16.0 [facility]BldiyliIXZQXIFSIP9665-63-83 05:36:00 Test Item Value Reference Range Interpretation Comments Hct (test code = Hct) 26.4 36.0-48.0 [facility] CenterCpykigiOPAIJQRSZZ4849-67-43 05:36:00 Test Item Value Reference Range Interpretation Comments MCV (test code = MCV) 104.0 80.0-98.0 [facility] ServicesYmphauwVQGESSATHJ9247-97-04 05:36:00 Test Item Value Reference Range Interpretation Comments MCH (test code = MCH) 35.2 pg 27.0-31.0 [facility] CenterYaiglulHGDCWPCHRP5448-52-48 05:36:00 Test Item Value Reference Range Interpretation Comments MCHC (test code = MCHC) 33.8 32.0-36.0 [facility] CenterYecltqiBVGVVTNTUW7171-68-71 05:36:00 Test Item Value Reference Range Interpretation Comments RDW (test code = RDW) 13.4 11.5-14.5 [facility] CenterOyxkiflWTVLIDWDKQ3319-74-58 05:36:00 Test Item Value Reference Range Interpretation Comments Platelet (test code = Platelet) 402 133-450 [facility] CenterGgsoxvdVLUDDXEQPY1636-95-95 05:36:00 Test Item Value Reference Range Interpretation Comments MPV (test code = MPV) 7.2 7.4-10.4 [facility] CenterXsjffkiRRFPYCPFKU3525-86-54 05:36:00 Test Item Value Reference Range Interpretation Comments Segs (test code = Segs) 56.0 45.0-75.0 [place] 519360-03-28 05:36:00 Test Item Value Reference Range Interpretation Comments Lymphocytes (test code = Lymphocytes) 25.9 20.0-40.0 [place] 519360-03-28 05:36:00 Test Item Value Reference Range Interpretation Comments Monocytes (test code = Monocytes) 13.4 2.0-12.0 [place] 519360-03-28 05:36:00 Test Item Value Reference Range Interpretation Comments Eosinophils (test code = 3.2 See_Comment [A utomated message] The Eosinophils) system which ge nerated this result tra nsmitted reference range : <=4.0. The reference r patria was not used to int erpret this result as normal/abnormal . [place] 519360-03-28 05:36:00 Test Item Value Reference Range Interpretation Comments Basophils (test code = 1.5 See_Comment [Aut omated message] The Basophils) system which ge nerated this result tra nsmitted reference range : <=1.0. The reference r patria was not used to int erpret this result as normal/abnormal . [facility] CenterMlpjwoeYXSSBMLDKF5225-24-79 05:36:00 Test Item Value Reference Range Interpretation Comments Neutrophils # (test code = Neutrophils 3.4 1.5-8.1 #) [facility] CenterArymebpOFSZEALHRE7821-86-04 05:36:00 Test Item Value Reference Range Interpretation Comments Lymphocytes # (test code = Lymphocytes 1.6 1.0-5.5 #) [facility] CenterFxrhpeoZAOVWVADIQ1810-76-55 05:36:00 Test Item Value Reference Range Interpretation Comments Monocytes # (test code 0.8 See_Comment [Aut omated message] The = Monocytes #) system which generated this result tra nsmitted reference range : <=0.8. The reference r patria was not used to int erpret this result as normal/abnormal . [facility] CenterBdefgpuCUUUPIFJHH0902-74-62 05:36:00 Test Item Value Reference Range Interpretation Comments Eosinophils # (test code 0.2 See_Comment [A utomated message] The = Eosinophils #) system whic h generated this result tra nsmitted reference range : <=0.5. The reference r patria was not used to int erpret this result as normal/abnormal . [facility] CenterQolvedcYTFQGQILEN0116-11-99 05:36:00 Test Item Value Reference Range Interpretation Comments Basophils # (test code 0.1 See_Comment [Aut omated message] The = Basophils #) system which generated this result tra nsmitted reference range : <=0.2. The reference r patria was not used to int erpret this result as normal/abnormal . [facility] CenterRcgezxpQHMFUVAMHV9142-22-00 05:36:00 Test Item Value Reference Range Interpretation Comments Macrocyte (test code = 1+ *ABN*(02/06/20 Macrocyte) 12:36 AM) [place] 022580-03-28 05:36:00 Test Item Value Reference Range Interpretation Comments Ca Ion WB (test code = Ca Ion WB) 1.16 1.05-1.25 [place] 022580-03-28 05:36:00 Test Item Value Reference Range Interpretation Comments Ca Norm WB (test code = Ca Norm WB) 1.18 1.05-1.25 [facility]2020-03-28 05:36:00 Test Item Value Reference Range Interpretation Comments Vitamin B12 Lvl (test code = Vitamin 654 129-4329 B12 Lvl) [facility]2020-03-28 05:36:00 Test Item Value Reference Range Interpretation Comments Folate Lvl (test code = Folate Lvl) 36.8 [facility]2020-03-28 05:36:00 Test Item Value Reference Range Interpretation Comments Glucose Lvl (test code = Glucose Lvl) 96 70-99 [place] 542560-03-28 05:36:00 Test Item Value Reference Range Interpretation Comments BUN (test code = BUN) 26 7-22 [place] 542560-03-28 05:36:00 Test Item Value Reference Range Interpretation Comments Creatinine Lvl (test code = Creatinine 1.11 0.50-1.40 Lvl) [place] 542560-03-28 05:36:00 Test Item Value Reference Range Interpretation Comments Sodium Lvl (test code = Sodium Lvl) 139 135-145 [place] 542560-03-28 05:36:00 Test Item Value Reference Range Interpretation Comments Potassium Lvl (test code = Potassium 4.0 3.5-5.1 Lvl) [place] 542560-03-28 05:36:00 Test Item Value Reference Range Interpretation Comments Chloride Lvl (test code = Chloride Lvl) 107 95-109 [place] 542560-03-28 05:36:00 Test Item Value Reference Range Interpretation Comments CO2 (test code = CO2) 25 24-32 [place] [address]-03-28 05:36:00 Test Item Value Reference Range Interpretation Comments Calcium Lvl (test code = Calcium Lvl) 9.1 8.5-10.5 [place] 542560-03-28 05:36:00 Test Item Value Reference Range Interpretation Comments AGAP (test code = AGAP) 11.0 10.0-20.0 [place] 542560-03-28 05:36:00 Test Item Value Reference Range Interpretation Comments eGFR (test code = eGFR) 47 [place] 542560-03-28 05:36:00 Test Item Value Reference Range Interpretation Comments Magnesium Lvl (test code = Magnesium 2.2 1.8-2.4 Lvl) [place] 542560-03-28 05:36:00 Test Item Value Reference Range Interpretation Comments Phosphorus (test code = Phosphorus) 2.4 2.5-4.5 [place] [address]-03-28 05:36:00 Test Item Value Reference Range Interpretation Comments WBC (test code = WBC) 6.1 3.7-10.4 [place] [address]-03-28 05:36:00 Test Item Value Reference Range Interpretation Comments RBC (test code = RBC) 2.54 4.20-5.40 [place] [address]-03-28 05:36:00 Test Item Value Reference Range Interpretation Comments Hgb (test code = Hgb) 8.9 12.0-16.0 [place] [address]-03-28 05:36:00 Test Item Value Reference Range Interpretation Comments Hct (test code = Hct) 26.4 36.0-48.0 [place] [address]-03-28 05:36:00 Test Item Value Reference Range Interpretation Comments MCV (test code = MCV) 104.0 80.0-98.0 [place] [address]-03-28 05:36:00 Test Item Value Reference Range Interpretation Comments MCH (test code = MCH) 35.2 pg 27.0-31.0 [facility] CenterSnmmztqIXFTQEWKFH7035-69-10 05:36:00 Test Item Value Reference Range Interpretation Comments MCHC (test code = MCHC) 33.8 32.0-36.0 [facility] CenterKogoowrEWDBPTHVNN9318-90-73 05:36:00 Test Item Value Reference Range Interpretation Comments RDW (test code = RDW) 13.4 11.5-14.5 [facility] CenterRkbryquRTPGJCPORV0841-56-68 05:36:00 Test Item Value Reference Range Interpretation Comments Platelet (test code = Platelet) 402 133-450 [facility] CenterWnvujwvOMHOSBQKDC5833-59-74 05:36:00 Test Item Value Reference Range Interpretation Comments MPV (test code = MPV) 7.2 7.4-10.4 [facility] CenterHyyyupgNXRDBVLUJN5891-75-87 05:36:00 Test Item Value Reference Range Interpretation Comments Segs (test code = Segs) 56.0 45.0-75.0 [facility] CenterAplfinuTKCZBLRARK3657-27-81 05:36:00 Test Item Value Reference Range Interpretation Comments Lymphocytes (test code = Lymphocytes) 25.9 20.0-40.0 [facility] CenterQipppzdKMVRQGCKNE4606-76-15 05:36:00 Test Item Value Reference Range Interpretation Comments Monocytes (test code = Monocytes) 13.4 2.0-12.0 [facility] CenterZgsmlzyGQOZGZTXQW7755-74-35 05:36:00 Test Item Value Reference Range Interpretation Comments Eosinophils (test code = 3.2 See_Comment [A utomated message] The Eosinophils) system which ge nerated this result tra nsmitted reference range : <=4.0. The reference r patria was not used to int erpret this result as normal/abnormal . [facility] CenterJvvrksgUEQCSOLBRE5898-83-96 05:36:00 Test Item Value Reference Range Interpretation Comments Basophils (test code = 1.5 See_Comment [Aut omated message] The Basophils) system which ge nerated this result tra nsmitted reference range : <=1.0. The reference r patria was not used to int erpret this result as normal/abnormal . [facility] CenterBpudtmcRGURUTHAHE7701-58-33 05:36:00 Test Item Value Reference Range Interpretation Comments Neutrophils # (test code = Neutrophils 3.4 1.5-8.1 #) [place] 519360-03-28 05:36:00 Test Item Value Reference Range Interpretation Comments Lymphocytes # (test code = Lymphocytes 1.6 1.0-5.5 #) [facility] CenterQdsjdltCXZVQSJHIZ9605-64-20 05:36:00 Test Item Value Reference Range Interpretation Comments Monocytes # (test code 0.8 See_Comment [Aut omated message] The = Monocytes #) system which generated this result tra nsmitted reference range : <=0.8. The reference r patria was not used to int erpret this result as normal/abnormal . [facility] CenterNfiyyfwBREVOXBZMF8634-37-11 05:36:00 Test Item Value Reference Range Interpretation Comments Eosinophils # (test code 0.2 See_Comment [A utomated message] The = Eosinophils #) system whic h generated this result tra nsmitted reference range : <=0.5. The reference r patria was not used to int erpret this result as normal/abnormal . [facility] CenterVmcpmkmSGEEYKBPSO6794-07-67 05:36:00 Test Item Value Reference Range Interpretation Comments Basophils # (test code 0.1 See_Comment [Aut omated message] The = Basophils #) system which generated this result tra nsmitted reference range : <=0.2. The reference r patria was not used to int erpret this result as normal/abnormal . [facility] CenterRlvjipwOLHFIGYAUA3782-41-51 05:36:00 Test Item Value Reference Range Interpretation Comments Macrocyte (test code = 1+ *ABN*(02/06/20 Macrocyte) 12:36 AM) [facility]2020-03-28 05:36:00 Test Item Value Reference Range Interpretation Comments Ca Ion WB (test code = Ca Ion WB) 1.16 1.05-1.25 [facility]2020-03-28 05:36:00 Test Item Value Reference Range Interpretation Comments Ca Norm WB (test code = Ca Norm WB) 1.18 1.05-1.25 [facility]2020-03-28 05:36:00 Test Item Value Reference Range Interpretation Comments Vitamin B12 Lvl (test code = Vitamin 629 950-5729 B12 Lvl) [facility]2020-03-28 05:36:00 Test Item Value Reference Range Interpretation Comments Folate Lvl (test code = Folate Lvl) 36.8 [facility]2020-03-28 05:36:00 Test Item Value Reference Range Interpretation Comments Glucose Lvl (test code = Glucose Lvl) 96 70-99 [place] 542560-03-28 05:36:00 Test Item Value Reference Range Interpretation Comments BUN (test code = BUN) 26 7-22 [facility]2020-03-28 05:36:00 Test Item Value Reference Range Interpretation Comments Creatinine Lvl (test code = Creatinine 1.11 0.50-1.40 Lvl) [facility]2020-03-28 05:36:00 Test Item Value Reference Range Interpretation Comments Sodium Lvl (test code = Sodium Lvl) 139 135-145 [facility]2020-03-28 05:36:00 Test Item Value Reference Range Interpretation Comments Potassium Lvl (test code = Potassium 4.0 3.5-5.1 Lvl) [facility]2020-03-28 05:36:00 Test Item Value Reference Range Interpretation Comments Chloride Lvl (test code = Chloride Lvl) 107 95-109 [facility]2020-03-28 05:36:00 Test Item Value Reference Range Interpretation Comments CO2 (test code = CO2) 25 24-32 [facility]2020-03-28 05:36:00 Test Item Value Reference Range Interpretation Comments Calcium Lvl (test code = Calcium Lvl) 9.1 8.5-10.5 [facility]2020-03-28 05:36:00 Test Item Value Reference Range Interpretation Comments AGAP (test code = AGAP) 11.0 10.0-20.0 [facility]2020-03-28 05:36:00 Test Item Value Reference Range Interpretation Comments eGFR (test code = eGFR) 47 [facility]2020-03-28 05:36:00 Test Item Value Reference Range Interpretation Comments Magnesium Lvl (test code = Magnesium 2.2 1.8-2.4 Lvl) [facility]2020-03-28 05:36:00 Test Item Value Reference Range Interpretation Comments Phosphorus (test code = Phosphorus) 2.4 2.5-4.5 [facility] ServicesDtxbgesFUEGTMBPOK3773-71-75 05:36:00 Test Item Value Reference Range Interpretation Comments WBC (test code = WBC) 6.1 3.7-10.4 [facility] CenterIuowbspKNGTSFSAQV9377-33-20 05:36:00 Test Item Value Reference Range Interpretation Comments RBC (test code = RBC) 2.54 4.20-5.40 [facility] CenterEcnsqboNQOVWAQMEJ3401-08-61 05:36:00 Test Item Value Reference Range Interpretation Comments Hgb (test code = Hgb) 8.9 12.0-16.0 [facility] CenterHrhwqphHLGLTDSKSA0272-17-70 05:36:00 Test Item Value Reference Range Interpretation Comments Hct (test code = Hct) 26.4 36.0-48.0 [facility] CenterHquukzrDMGXVFQFNR4072-18-63 05:36:00 Test Item Value Reference Range Interpretation Comments MCV (test code = MCV) 104.0 80.0-98.0 [facility] CenterJyqngqjDVMJKPJWOM4607-97-81 05:36:00 Test Item Value Reference Range Interpretation Comments MCH (test code = MCH) 35.2 pg 27.0-31.0 [facility] CenterEmgvxnyEXIXBRGTDQ1136-83-64 05:36:00 Test Item Value Reference Range Interpretation Comments MCHC (test code = MCHC) 33.8 32.0-36.0 [facility] CenterDxgejaySMCXIUACPE0046-99-02 05:36:00 Test Item Value Reference Range Interpretation Comments RDW (test code = RDW) 13.4 11.5-14.5 [facility] CenterEktewlqIRBZKEHONW4588-59-01 05:36:00 Test Item Value Reference Range Interpretation Comments Platelet (test code = Platelet) 402 133-450 [facility] CenterQzzrafsVLYYIFMGJO4737-74-84 05:36:00 Test Item Value Reference Range Interpretation Comments MPV (test code = MPV) 7.2 7.4-10.4 [place] 519360-03-28 05:36:00 Test Item Value Reference Range Interpretation Comments Segs (test code = Segs) 56.0 45.0-75.0 [place] 519360-03-28 05:36:00 Test Item Value Reference Range Interpretation Comments Lymphocytes (test code = Lymphocytes) 25.9 20.0-40.0 [place] 519360-03-28 05:36:00 Test Item Value Reference Range Interpretation Comments Monocytes (test code = Monocytes) 13.4 2.0-12.0 [place] 519360-03-28 05:36:00 Test Item Value Reference Range Interpretation Comments Eosinophils (test code = 3.2 See_Comment [A utomated message] The Eosinophils) system which ge nerated this result tra nsmitted reference range : <=4.0. The reference r patria was not used to int erpret this result as normal/abnormal . [facility] CenterCwxmredNTFAGNFBEF1883-69-74 05:36:00 Test Item Value Reference Range Interpretation Comments Basophils (test code = 1.5 See_Comment [Aut omated message] The Basophils) system which ge nerated this result tra nsmitted reference range : <=1.0. The reference r patria was not used to int erpret this result as normal/abnormal . [facility] CenterKcoecpgDASINRYVUZ4252-67-32 05:36:00 Test Item Value Reference Range Interpretation Comments Neutrophils # (test code = Neutrophils 3.4 1.5-8.1 #) [facility] CenterKqczlmsSGKTOZFFNF1677-34-27 05:36:00 Test Item Value Reference Range Interpretation Comments Lymphocytes # (test code = Lymphocytes 1.6 1.0-5.5 #) [place] 519360-03-28 05:36:00 Test Item Value Reference Range Interpretation Comments Monocytes # (test code 0.8 See_Comment [Aut omated message] The = Monocytes #) system which generated this result tra nsmitted reference range : <=0.8. The reference r patria was not used to int erpret this result as normal/abnormal . [facility] CenterSqjldlgWLYFRSUAAN3536-24-86 05:36:00 Test Item Value Reference Range Interpretation Comments Eosinophils # (test code 0.2 See_Comment [A utomated message] The = Eosinophils #) system whic h generated this result tra nsmitted reference range : <=0.5. The reference r patria was not used to int erpret this result as normal/abnormal . [facility] CenterKwccubsXFRWRKTUEV9423-99-38 05:36:00 Test Item Value Reference Range Interpretation Comments Basophils # (test code 0.1 See_Comment [Aut omated message] The = Basophils #) system which generated this result tra nsmitted reference range : <=0.2. The reference r patria was not used to int erpret this result as normal/abnormal . [facility] CenterNwothurQZRGKIKWKV1878-29-99 05:36:00 Test Item Value Reference Range Interpretation Comments Macrocyte (test code = 1+ *ABN*(02/06/20 Macrocyte) 12:36 AM) [facility] 05:36:00 Test Item Value Reference Range Interpretation Comments Ca Ion WB (test code = Ca Ion WB) 1.16 1.05-1.25 [facility]2020-03-28 05:36:00 Test Item Value Reference Range Interpretation Comments Ca Norm WB (test code = Ca Norm WB) 1.18 1.05-1.25 [facility]2020-03-28 05:36:00 Test Item Value Reference Range Interpretation Comments Vitamin B12 Lvl (test code = Vitamin 792 378-6585 B12 Lvl) [facility]2020-03-28 05:36:00 Test Item Value Reference Range Interpretation Comments Folate Lvl (test code = Folate Lvl) 36.8 [facility]2020-03-28 05:36:00 Test Item Value Reference Range Interpretation Comments Glucose Lvl (test code = Glucose Lvl) 96 70-99 [facility]2020-03-28 05:36:00 Test Item Value Reference Range Interpretation Comments BUN (test code = BUN) 26 7-22 [facility]2020-03-28 05:36:00 Test Item Value Reference Range Interpretation Comments Creatinine Lvl (test code = Creatinine 1.11 0.50-1.40 Lvl) [facility]2020-03-28 05:36:00 Test Item Value Reference Range Interpretation Comments Sodium Lvl (test code = Sodium Lvl) 139 135-145 [place] 542560-03-28 05:36:00 Test Item Value Reference Range Interpretation Comments Potassium Lvl (test code = Potassium 4.0 3.5-5.1 Lvl) [facility]2020-03-28 05:36:00 Test Item Value Reference Range Interpretation Comments Chloride Lvl (test code = Chloride Lvl) 107 95-109 [facility]2020-03-28 05:36:00 Test Item Value Reference Range Interpretation Comments CO2 (test code = CO2) 25 24-32 [place] 542560-03-28 05:36:00 Test Item Value Reference Range Interpretation Comments Calcium Lvl (test code = Calcium Lvl) 9.1 8.5-10.5 [place] 542560-03-28 05:36:00 Test Item Value Reference Range Interpretation Comments AGAP (test code = AGAP) 11.0 10.0-20.0 [place] 542560-03-28 05:36:00 Test Item Value Reference Range Interpretation Comments eGFR (test code = eGFR) 47 [facility]2020-03-28 05:36:00 Test Item Value Reference Range Interpretation Comments Magnesium Lvl (test code = Magnesium 2.2 1.8-2.4 Lvl) [place] 542560-03-28 05:36:00 Test Item Value Reference Range Interpretation Comments Phosphorus (test code = Phosphorus) 2.4 2.5-4.5 [place] 519360-03-28 05:36:00 Test Item Value Reference Range Interpretation Comments WBC (test code = WBC) 6.1 3.7-10.4 [place] 519360-03-28 05:36:00 Test Item Value Reference Range Interpretation Comments RBC (test code = RBC) 2.54 4.20-5.40 [place] 519360-03-28 05:36:00 Test Item Value Reference Range Interpretation Comments Hgb (test code = Hgb) 8.9 12.0-16.0 [place] 519360-03-28 05:36:00 Test Item Value Reference Range Interpretation Comments Hct (test code = Hct) 26.4 36.0-48.0 [place] [address]-03-28 05:36:00 Test Item Value Reference Range Interpretation Comments MCV (test code = MCV) 104.0 80.0-98.0 [place] [address]-03-28 05:36:00 Test Item Value Reference Range Interpretation Comments MCH (test code = MCH) 35.2 pg 27.0-31.0 [place] 519360-03-28 05:36:00 Test Item Value Reference Range Interpretation Comments MCHC (test code = MCHC) 33.8 32.0-36.0 [place] 519360-03-28 05:36:00 Test Item Value Reference Range Interpretation Comments RDW (test code = RDW) 13.4 11.5-14.5 [place] 519360-03-28 05:36:00 Test Item Value Reference Range Interpretation Comments Platelet (test code = Platelet) 402 133-450 [place] 519360-03-28 05:36:00 Test Item Value Reference Range Interpretation Comments MPV (test code = MPV) 7.2 7.4-10.4 [place] 519360-03-28 05:36:00 Test Item Value Reference Range Interpretation Comments Segs (test code = Segs) 56.0 45.0-75.0 [place] [address]-03-28 05:36:00 Test Item Value Reference Range Interpretation Comments Lymphocytes (test code = Lymphocytes) 25.9 20.0-40.0 [place] [address]-03-28 05:36:00 Test Item Value Reference Range Interpretation Comments Monocytes (test code = Monocytes) 13.4 2.0-12.0 [place] 519360-03-28 05:36:00 Test Item Value Reference Range Interpretation Comments Eosinophils (test code = 3.2 See_Comment [A utomated message] The Eosinophils) system which ge nerated this result tra nsmitted reference range : <=4.0. The reference r patria was not used to int erpret this result as normal/abnormal . [facility]WfgsrokMPJARYMWEI7500-58-30 05:36:00 Test Item Value Reference Range Interpretation Comments Basophils (test code = 1.5 See_Comment [Aut omated message] The Basophils) system which ge nerated this result tra nsmitted reference range : <=1.0. The reference r patria was not used to int erpret this result as normal/abnormal . [place] 519360-03-28 05:36:00 Test Item Value Reference Range Interpretation Comments Neutrophils # (test code = Neutrophils 3.4 1.5-8.1 #) [place] [address]-03-28 05:36:00 Test Item Value Reference Range Interpretation Comments Lymphocytes # (test code = Lymphocytes 1.6 1.0-5.5 #) [place] 519360-03-28 05:36:00 Test Item Value Reference Range Interpretation Comments Monocytes # (test code 0.8 See_Comment [Aut omated message] The = Monocytes #) system which generated this result tra nsmitted reference range : <=0.8. The reference r patria was not used to int erpret this result as normal/abnormal . [facility] CenterNsmsxvxUFXBHKMRKG5522-00-78 05:36:00 Test Item Value Reference Range Interpretation Comments Eosinophils # (test code 0.2 See_Comment [A utomated message] The = Eosinophils #) system whic h generated this result tra nsmitted reference range : <=0.5. The reference r patria was not used to int erpret this result as normal/abnormal . [facility] CenterIdrpurcYJZGEFVSOB3900-92-06 05:36:00 Test Item Value Reference Range Interpretation Comments Basophils # (test code 0.1 See_Comment [Aut omated message] The = Basophils #) system which generated this result tra nsmitted reference range : <=0.2. The reference r patria was not used to int erpret this result as normal/abnormal . [facility] CenterKgkctrjEXNIPRCHSS7050-85-19 05:36:00 Test Item Value Reference Range Interpretation Comments Macrocyte (test code = 1+ *ABN*(02/06/20 Macrocyte) 12:36 AM) [facility]2020-03-28 05:36:00 Test Item Value Reference Range Interpretation Comments Ca Ion WB (test code = Ca Ion WB) 1.16 1.05-1.25 [facility]2020-03-28 05:36:00 Test Item Value Reference Range Interpretation Comments Ca Norm WB (test code = Ca Norm WB) 1.18 1.05-1.25 [facility]2020-03-28 05:36:00 Test Item Value Reference Range Interpretation Comments Vitamin B12 Lvl (test code = Vitamin [phone] B12 Lvl) [facility]2020-03-28 05:36:00 Test Item Value Reference Range Interpretation Comments Folate Lvl (test code = Folate Lvl) 36.8 [place] 542560-03-28 05:36:00 Test Item Value Reference Range Interpretation Comments Glucose Lvl (test code = Glucose Lvl) 96 70-99 [place] 542560-03-28 05:36:00 Test Item Value Reference Range Interpretation Comments BUN (test code = BUN) 26 7-22 [place] 542560-03-28 05:36:00 Test Item Value Reference Range Interpretation Comments Creatinine Lvl (test code = Creatinine 1.11 0.50-1.40 Lvl) [place] 542560-03-28 05:36:00 Test Item Value Reference Range Interpretation Comments Sodium Lvl (test code = Sodium Lvl) 139 135-145 [place] 542560-03-28 05:36:00 Test Item Value Reference Range Interpretation Comments Potassium Lvl (test code = Potassium 4.0 3.5-5.1 Lvl) [place] 542560-03-28 05:36:00 Test Item Value Reference Range Interpretation Comments Chloride Lvl (test code = Chloride Lvl) 107 95-109 [place] 542560-03-28 05:36:00 Test Item Value Reference Range Interpretation Comments CO2 (test code = CO2) 25 24-32 [place] 542560-03-28 05:36:00 Test Item Value Reference Range Interpretation Comments Calcium Lvl (test code = Calcium Lvl) 9.1 8.5-10.5 [place] 542560-03-28 05:36:00 Test Item Value Reference Range Interpretation Comments AGAP (test code = AGAP) 11.0 10.0-20.0 [place] 542560-03-28 05:36:00 Test Item Value Reference Range Interpretation Comments eGFR (test code = eGFR) 47 [place] 542560-03-28 05:36:00 Test Item Value Reference Range Interpretation Comments Magnesium Lvl (test code = Magnesium 2.2 1.8-2.4 Lvl) [place] 542560-03-28 05:36:00 Test Item Value Reference Range Interpretation Comments Phosphorus (test code = Phosphorus) 2.4 2.5-4.5 [place] [address]-03-28 05:36:00 Test Item Value Reference Range Interpretation Comments WBC (test code = WBC) 6.1 3.7-10.4 [place] 519360-03-28 05:36:00 Test Item Value Reference Range Interpretation Comments RBC (test code = RBC) 2.54 4.20-5.40 [place] 519360-03-28 05:36:00 Test Item Value Reference Range Interpretation Comments Hgb (test code = Hgb) 8.9 12.0-16.0 [facility]xDQBXFUIPVK8920-45-33 05:36:00 Test Item Value Reference Range Interpretation Comments Hct (test code = Hct) 26.4 36.0-48.0 [facility]MzgkekwACSPJHWUVO5125-28-49 05:36:00 Test Item Value Reference Range Interpretation Comments MCV (test code = MCV) 104.0 80.0-98.0 [place] 519360-03-28 05:36:00 Test Item Value Reference Range Interpretation Comments MCH (test code = MCH) 35.2 pg 27.0-31.0 [facility] CenterIwwfwxxJZQUXFKTDA0837-60-72 05:36:00 Test Item Value Reference Range Interpretation Comments MCHC (test code = MCHC) 33.8 32.0-36.0 [place] 519360-03-28 05:36:00 Test Item Value Reference Range Interpretation Comments RDW (test code = RDW) 13.4 11.5-14.5 [place] 519360-03-28 05:36:00 Test Item Value Reference Range Interpretation Comments Platelet (test code = Platelet) 402 133-450 [facility] CenterDjspuraTGRPLMIFOS6572-59-37 05:36:00 Test Item Value Reference Range Interpretation Comments MPV (test code = MPV) 7.2 7.4-10.4 [place] 519360-03-28 05:36:00 Test Item Value Reference Range Interpretation Comments Segs (test code = Segs) 56.0 45.0-75.0 [place] 519360-03-28 05:36:00 Test Item Value Reference Range Interpretation Comments Lymphocytes (test code = Lymphocytes) 25.9 20.0-40.0 [place] [address]-03-28 05:36:00 Test Item Value Reference Range Interpretation Comments Monocytes (test code = Monocytes) 13.4 2.0-12.0 [place] [address]-03-28 05:36:00 Test Item Value Reference Range Interpretation Comments Eosinophils (test code = 3.2 See_Comment [A utomated message] The Eosinophils) system which ge nerated this result tra nsmitted reference range : <=4.0. The reference r patria was not used to int erpret this result as normal/abnormal . [facility] CenterWrmustwIPCLILTWXW7719-75-17 05:36:00 Test Item Value Reference Range Interpretation Comments Basophils (test code = 1.5 See_Comment [Aut omated message] The Basophils) system which ge nerated this result tra nsmitted reference range : <=1.0. The reference r patria was not used to int erpret this result as normal/abnormal . [facility] CenterNyocyiiFNQVVLLHTY7926-81-44 05:36:00 Test Item Value Reference Range Interpretation Comments Neutrophils # (test code = Neutrophils 3.4 1.5-8.1 #) [facility] CenterYxszmgbZNWIMPCQXX4206-12-61 05:36:00 Test Item Value Reference Range Interpretation Comments Lymphocytes # (test code = Lymphocytes 1.6 1.0-5.5 #) [facility] CenterOnexqjwCHLKFSVNLA9358-17-14 05:36:00 Test Item Value Reference Range Interpretation Comments Monocytes # (test code 0.8 See_Comment [Aut omated message] The = Monocytes #) system which generated this result tra nsmitted reference range : <=0.8. The reference r patria was not used to int erpret this result as normal/abnormal . [facility] CenterHhqoxwrJSKGGHUHQW9080-26-09 05:36:00 Test Item Value Reference Range Interpretation Comments Eosinophils # (test code 0.2 See_Comment [A utomated message] The = Eosinophils #) system whic h generated this result tra nsmitted reference range : <=0.5. The reference r patria was not used to int erpret this result as normal/abnormal . [facility] CenterGlvghodKXHHAHEXQY6223-14-01 05:36:00 Test Item Value Reference Range Interpretation Comments Basophils # (test code 0.1 See_Comment [Aut omated message] The = Basophils #) system which generated this result tra nsmitted reference range : <=0.2. The reference r patria was not used to int erpret this result as normal/abnormal . [facility] CenterCgpwxvsJLXNSTXRCP6025-19-47 05:36:00 Test Item Value Reference Range Interpretation Comments Macrocyte (test code = 1+ *ABN*(02/06/20 Macrocyte) 12:36 AM) [facility]2020-03-28 05:36:00 Test Item Value Reference Range Interpretation Comments Ca Ion WB (test code = Ca Ion WB) 1.16 1.05-1.25 [facility] VPAUNEE7889-13-23 05:36:00 Test Item Value Reference Range Interpretation Comments Ca Norm WB (test code = Ca Norm WB) 1.18 1.05-1.25 [facility] USRAP5584-68-65 05:36:00 Test Item Value Reference Range Interpretation Comments Vitamin B12 Lvl (test code = Vitamin [phone] B12 Lvl) [facility]2020-03-28 05:36:00 Test Item Value Reference Range Interpretation Comments Folate Lvl (test code = Folate Lvl) 36.8 [facility]2020-03-28 05:36:00 Test Item Value Reference Range Interpretation Comments Glucose Lvl (test code = Glucose Lvl) 96 70-99 [facility]2020-03-28 05:36:00 Test Item Value Reference Range Interpretation Comments BUN (test code = BUN) 26 7-22 [facility]2020-03-28 05:36:00 Test Item Value Reference Range Interpretation Comments Creatinine Lvl (test code = Creatinine 1.11 0.50-1.40 Lvl) [facility]2020-03-28 05:36:00 Test Item Value Reference Range Interpretation Comments Sodium Lvl (test code = Sodium Lvl) 139 135-145 [facility]2020-03-28 05:36:00 Test Item Value Reference Range Interpretation Comments Potassium Lvl (test code = Potassium 4.0 3.5-5.1 Lvl) [facility]2020-03-28 05:36:00 Test Item Value Reference Range Interpretation Comments Chloride Lvl (test code = Chloride Lvl) 107 95-109 [facility]2020-03-28 05:36:00 Test Item Value Reference Range Interpretation Comments CO2 (test code = CO2) 25 24-32 [facility]2020-03-28 05:36:00 Test Item Value Reference Range Interpretation Comments Calcium Lvl (test code = Calcium Lvl) 9.1 8.5-10.5 [facility]2020-03-28 05:36:00 Test Item Value Reference Range Interpretation Comments AGAP (test code = AGAP) 11.0 10.0-20.0 [facility]2020-03-28 05:36:00 Test Item Value Reference Range Interpretation Comments eGFR (test code = eGFR) 47 [facility] MQWTR4948-36-12 05:36:00 Test Item Value Reference Range Interpretation Comments Magnesium Lvl (test code = Magnesium 2.2 1.8-2.4 Lvl) [facility]2020-03-28 05:36:00 Test Item Value Reference Range Interpretation Comments Phosphorus (test code = Phosphorus) 2.4 2.5-4.5 [facility] CenterNjojaemJTGQELKGPI9640-56-08 05:36:00 Test Item Value Reference Range Interpretation Comments WBC (test code = WBC) 6.1 3.7-10.4 [facility] CenterRlgvqouFNCNVTLBBV7007-73-12 05:36:00 Test Item Value Reference Range Interpretation Comments RBC (test code = RBC) 2.54 4.20-5.40 [facility] CenterArdiniuMQSAWLCLHZ6307-89-39 05:36:00 Test Item Value Reference Range Interpretation Comments Hgb (test code = Hgb) 8.9 12.0-16.0 [facility] CenterNvxqnzfVYMUHTYUOU5455-50-17 05:36:00 Test Item Value Reference Range Interpretation Comments Hct (test code = Hct) 26.4 36.0-48.0 [facility] CenterNfnymrmQQTVKOXACA5719-56-73 05:36:00 Test Item Value Reference Range Interpretation Comments MCV (test code = MCV) 104.0 80.0-98.0 [facility] CenterMhetmpeODNJMZZTPH1295-35-32 05:36:00 Test Item Value Reference Range Interpretation Comments MCH (test code = MCH) 35.2 pg 27.0-31.0 [facility] CenterZywmvwaVBGDINUTGP0898-18-65 05:36:00 Test Item Value Reference Range Interpretation Comments MCHC (test code = MCHC) 33.8 32.0-36.0 [facility] CenterUinlrcxODQJLXBTGI1821-77-60 05:36:00 Test Item Value Reference Range Interpretation Comments RDW (test code = RDW) 13.4 11.5-14.5 [facility] CenterGdultodKMWIHHQCMX1137-23-09 05:36:00 Test Item Value Reference Range Interpretation Comments Platelet (test code = Platelet) 402 133-450 [facility] CenterXksfgfmBWRJUMHCDB6618-37-56 05:36:00 Test Item Value Reference Range Interpretation Comments MPV (test code = MPV) 7.2 7.4-10.4 [place] 519360-03-28 05:36:00 Test Item Value Reference Range Interpretation Comments Segs (test code = Segs) 56.0 45.0-75.0 [place] 519360-03-28 05:36:00 Test Item Value Reference Range Interpretation Comments Lymphocytes (test code = Lymphocytes) 25.9 20.0-40.0 [place] 519360-03-28 05:36:00 Test Item Value Reference Range Interpretation Comments Monocytes (test code = Monocytes) 13.4 2.0-12.0 [place] [address]-03-28 05:36:00 Test Item Value Reference Range Interpretation Comments Eosinophils (test code = 3.2 See_Comment [A utomated message] The Eosinophils) system which ge nerated this result tra nsmitted reference range : <=4.0. The reference r patria was not used to int erpret this result as normal/abnormal . [place] 519360-03-28 05:36:00 Test Item Value Reference Range Interpretation Comments Basophils (test code = 1.5 See_Comment [Aut omated message] The Basophils) system which ge nerated this result tra nsmitted reference range : <=1.0. The reference r patria was not used to int erpret this result as normal/abnormal . [facility] CenterNytvdcqCYBZMDSFJT7600-80-45 05:36:00 Test Item Value Reference Range Interpretation Comments Neutrophils # (test code = Neutrophils 3.4 1.5-8.1 #) [place] 519360-03-28 05:36:00 Test Item Value Reference Range Interpretation Comments Lymphocytes # (test code = Lymphocytes 1.6 1.0-5.5 #) [place] 519360-03-28 05:36:00 Test Item Value Reference Range Interpretation Comments Monocytes # (test code 0.8 See_Comment [Aut omated message] The = Monocytes #) system which generated this result tra nsmitted reference range : <=0.8. The reference r patria was not used to int erpret this result as normal/abnormal . [place] 519360-03-28 05:36:00 Test Item Value Reference Range Interpretation Comments Eosinophils # (test code 0.2 See_Comment [A utomated message] The = Eosinophils #) system whic h generated this result tra nsmitted reference range : <=0.5. The reference r patria was not used to int erpret this result as normal/abnormal . [facility] CenterXvibgcfYZWKXTRDKN7075-34-20 05:36:00 Test Item Value Reference Range Interpretation Comments Basophils # (test code 0.1 See_Comment [Aut omated message] The = Basophils #) system which generated this result tra nsmitted reference range : <=0.2. The reference r patria was not used to int erpret this result as normal/abnormal . [facility] CenterLktzyjiQFVUTSPLRH2268-69-97 05:36:00 Test Item Value Reference Range Interpretation Comments Macrocyte (test code = 1+ *ABN*(02/06/20 Macrocyte) 12:36 AM) [facility]2020-03-28 05:36:00 Test Item Value Reference Range Interpretation Comments Ca Ion WB (test code = Ca Ion WB) 1.16 1.05-1.25 [facility]2020-03-28 05:36:00 Test Item Value Reference Range Interpretation Comments Ca Norm WB (test code = Ca Norm WB) 1.18 1.05-1.25 [facility]2020-03-28 05:36:00 Test Item Value Reference Range Interpretation Comments Vitamin B12 Lvl (test code = Vitamin [phone] B12 Lvl) [facility]2020-03-28 05:36:00 Test Item Value Reference Range Interpretation Comments Folate Lvl (test code = Folate Lvl) 36.8 [facility] MYXOU4786-87-11 05:36:00 Test Item Value Reference Range Interpretation Comments Glucose Lvl (test code = Glucose Lvl) 96 70-99 [facility]2020-03-28 05:36:00 Test Item Value Reference Range Interpretation Comments BUN (test code = BUN) 26 7-22 [facility]2020-03-28 05:36:00 Test Item Value Reference Range Interpretation Comments Creatinine Lvl (test code = Creatinine 1.11 0.50-1.40 Lvl) [facility]2020-03-28 05:36:00 Test Item Value Reference Range Interpretation Comments Sodium Lvl (test code = Sodium Lvl) 139 135-145 [place] 542560-03-28 05:36:00 Test Item Value Reference Range Interpretation Comments Potassium Lvl (test code = Potassium 4.0 3.5-5.1 Lvl) [place] 542560-03-28 05:36:00 Test Item Value Reference Range Interpretation Comments Chloride Lvl (test code = Chloride Lvl) 107 95-109 [place] [address]-03-28 05:36:00 Test Item Value Reference Range Interpretation Comments CO2 (test code = CO2) 25 24-32 [place] 542560-03-28 05:36:00 Test Item Value Reference Range Interpretation Comments Calcium Lvl (test code = Calcium Lvl) 9.1 8.5-10.5 [place] 542560-03-28 05:36:00 Test Item Value Reference Range Interpretation Comments AGAP (test code = AGAP) 11.0 10.0-20.0 [place] 542560-03-28 05:36:00 Test Item Value Reference Range Interpretation Comments eGFR (test code = eGFR) 47 [place] 542560-03-28 05:36:00 Test Item Value Reference Range Interpretation Comments Magnesium Lvl (test code = Magnesium 2.2 1.8-2.4 Lvl) [place] 542560-03-28 05:36:00 Test Item Value Reference Range Interpretation Comments Phosphorus (test code = Phosphorus) 2.4 2.5-4.5 [place] 519360-03-28 05:36:00 Test Item Value Reference Range Interpretation Comments WBC (test code = WBC) 6.1 3.7-10.4 [place] [address]-03-28 05:36:00 Test Item Value Reference Range Interpretation Comments RBC (test code = RBC) 2.54 4.20-5.40 [place] [address]-03-28 05:36:00 Test Item Value Reference Range Interpretation Comments Hgb (test code = Hgb) 8.9 12.0-16.0 [place] [address]-03-28 05:36:00 Test Item Value Reference Range Interpretation Comments Hct (test code = Hct) 26.4 36.0-48.0 [place] [address]-03-28 05:36:00 Test Item Value Reference Range Interpretation Comments MCV (test code = MCV) 104.0 80.0-98.0 [place] 519360-03-28 05:36:00 Test Item Value Reference Range Interpretation Comments MCH (test code = MCH) 35.2 pg 27.0-31.0 [place] 519360-03-28 05:36:00 Test Item Value Reference Range Interpretation Comments MCHC (test code = MCHC) 33.8 32.0-36.0 [place] 519360-03-28 05:36:00 Test Item Value Reference Range Interpretation Comments RDW (test code = RDW) 13.4 11.5-14.5 [place] 519360-03-28 05:36:00 Test Item Value Reference Range Interpretation Comments Platelet (test code = Platelet) 402 133-450 [place] 519360-03-28 05:36:00 Test Item Value Reference Range Interpretation Comments MPV (test code = MPV) 7.2 7.4-10.4 [place] 519360-03-28 05:36:00 Test Item Value Reference Range Interpretation Comments Segs (test code = Segs) 56.0 45.0-75.0 [place] 519360-03-28 05:36:00 Test Item Value Reference Range Interpretation Comments Lymphocytes (test code = Lymphocytes) 25.9 20.0-40.0 [place] [address]-03-28 05:36:00 Test Item Value Reference Range Interpretation Comments Monocytes (test code = Monocytes) 13.4 2.0-12.0 [place] [address]-03-28 05:36:00 Test Item Value Reference Range Interpretation Comments Eosinophils (test code = 3.2 See_Comment [A utomated message] The Eosinophils) system which ge nerated this result tra nsmitted reference range : <=4.0. The reference r patria was not used to int erpret this result as normal/abnormal . [place] [address]-03-28 05:36:00 Test Item Value Reference Range Interpretation Comments Basophils (test code = 1.5 See_Comment [Aut omated message] The Basophils) system which ge nerated this result tra nsmitted reference range : <=1.0. The reference r patria was not used to int erpret this result as normal/abnormal . [facility] CenterYraxcdiBTFURMEIYE0426-74-34 05:36:00 Test Item Value Reference Range Interpretation Comments Neutrophils # (test code = Neutrophils 3.4 1.5-8.1 #) [facility] CenterScaoygpYGPEIDYPVI4712-11-69 05:36:00 Test Item Value Reference Range Interpretation Comments Lymphocytes # (test code = Lymphocytes 1.6 1.0-5.5 #) [facility] CenterXhndkzzDFBUGZFESQ7841-29-75 05:36:00 Test Item Value Reference Range Interpretation Comments Monocytes # (test code 0.8 See_Comment [Aut omated message] The = Monocytes #) system which generated this result tra nsmitted reference range : <=0.8. The reference r patria was not used to int erpret this result as normal/abnormal . [facility] CenterDlhfoslDORRJUJUBK0264-62-96 05:36:00 Test Item Value Reference Range Interpretation Comments Eosinophils # (test code 0.2 See_Comment [A utomated message] The = Eosinophils #) system whic h generated this result tra nsmitted reference range : <=0.5. The reference r patria was not used to int erpret this result as normal/abnormal . [facility] CenterRkqyxqnHMJRUXYRHN9118-92-63 05:36:00 Test Item Value Reference Range Interpretation Comments Basophils # (test code 0.1 See_Comment [Aut omated message] The = Basophils #) system which generated this result tra nsmitted reference range : <=0.2. The reference r patria was not used to int erpret this result as normal/abnormal . [facility] CenterPdabefpKIBYXZFSEN6404-83-76 05:36:00 Test Item Value Reference Range Interpretation Comments Macrocyte (test code = 1+ *ABN*(02/06/20 Macrocyte) 12:36 AM) [facility]2020-03-28 05:36:00 Test Item Value Reference Range Interpretation Comments Ca Ion WB (test code = Ca Ion WB) 1.16 1.05-1.25 [facility]2020-03-28 05:36:00 Test Item Value Reference Range Interpretation Comments Ca Norm WB (test code = Ca Norm WB) 1.18 1.05-1.25 [facility]2020-03-28 05:36:00 Test Item Value Reference Range Interpretation Comments Vitamin B12 Lvl (test code = Vitamin [phone] B12 Lvl) [facility]2020-03-28 05:36:00 Test Item Value Reference Range Interpretation Comments Folate Lvl (test code = Folate Lvl) 36.8 [facility]2020-03-28 05:36:00 Test Item Value Reference Range Interpretation Comments Glucose Lvl (test code = Glucose Lvl) 96 70-99 [place] 542560-03-28 05:36:00 Test Item Value Reference Range Interpretation Comments BUN (test code = BUN) 26 7-22 [place] 542560-03-28 05:36:00 Test Item Value Reference Range Interpretation Comments Creatinine Lvl (test code = Creatinine 1.11 0.50-1.40 Lvl) [facility]2020-03-28 05:36:00 Test Item Value Reference Range Interpretation Comments Sodium Lvl (test code = Sodium Lvl) 139 135-145 [place] 542560-03-28 05:36:00 Test Item Value Reference Range Interpretation Comments Potassium Lvl (test code = Potassium 4.0 3.5-5.1 Lvl) [facility]2020-03-28 05:36:00 Test Item Value Reference Range Interpretation Comments Chloride Lvl (test code = Chloride Lvl) 107 95-109 [facility]2020-03-28 05:36:00 Test Item Value Reference Range Interpretation Comments CO2 (test code = CO2) 25 24-32 [place] 542560-03-28 05:36:00 Test Item Value Reference Range Interpretation Comments Calcium Lvl (test code = Calcium Lvl) 9.1 8.5-10.5 [place] 542560-03-28 05:36:00 Test Item Value Reference Range Interpretation Comments AGAP (test code = AGAP) 11.0 10.0-20.0 [place] 542560-03-28 05:36:00 Test Item Value Reference Range Interpretation Comments eGFR (test code = eGFR) 47 [facility]2020-03-28 05:36:00 Test Item Value Reference Range Interpretation Comments Magnesium Lvl (test code = Magnesium 2.2 1.8-2.4 Lvl) [facility]2020-03-28 05:36:00 Test Item Value Reference Range Interpretation Comments Phosphorus (test code = Phosphorus) 2.4 2.5-4.5 [facility] CenterKptsgbbBUKMPIOOJX0010-13-07 05:36:00 Test Item Value Reference Range Interpretation Comments WBC (test code = WBC) 6.1 3.7-10.4 [facility] CenterGflbifjAXJZGDVIZJ6512-92-66 05:36:00 Test Item Value Reference Range Interpretation Comments RBC (test code = RBC) 2.54 4.20-5.40 [facility] CenterAsuojgmSYLQIMMCNM6178-27-25 05:36:00 Test Item Value Reference Range Interpretation Comments Hgb (test code = Hgb) 8.9 12.0-16.0 [facility] CenterZqoxeonZJLIFYLATV3893-96-07 05:36:00 Test Item Value Reference Range Interpretation Comments Hct (test code = Hct) 26.4 36.0-48.0 [facility] CenterClxxoouVRHNKTOYFD1282-73-86 05:36:00 Test Item Value Reference Range Interpretation Comments MCV (test code = MCV) 104.0 80.0-98.0 [facility] CenterLunzftvFAGPYRFIEI1850-60-38 05:36:00 Test Item Value Reference Range Interpretation Comments MCH (test code = MCH) 35.2 pg 27.0-31.0 [facility] CenterAghareoFDCFDEXJNI4420-07-99 05:36:00 Test Item Value Reference Range Interpretation Comments MCHC (test code = MCHC) 33.8 32.0-36.0 [facility] CenterMqyswhwKEXDZGFRUP8585-72-71 05:36:00 Test Item Value Reference Range Interpretation Comments RDW (test code = RDW) 13.4 11.5-14.5 [facility] CenterTqulwzvNJQFBBHVJF3823-36-07 05:36:00 Test Item Value Reference Range Interpretation Comments Platelet (test code = Platelet) 402 133-450 [facility] CenterGjvamqlAEJXMXVKPF1535-71-93 05:36:00 Test Item Value Reference Range Interpretation Comments MPV (test code = MPV) 7.2 7.4-10.4 [facility] CenterWvmghraBIAPEYYJSF5241-03-45 05:36:00 Test Item Value Reference Range Interpretation Comments Segs (test code = Segs) 56.0 45.0-75.0 [facility] CenterHbmyjldGOPLDDDDCE0788-30-59 05:36:00 Test Item Value Reference Range Interpretation Comments Lymphocytes (test code = Lymphocytes) 25.9 20.0-40.0 [place] 519360-03-28 05:36:00 Test Item Value Reference Range Interpretation Comments Monocytes (test code = Monocytes) 13.4 2.0-12.0 [facility] CenterGknatvpPJFIJHGONZ7732-81-45 05:36:00 Test Item Value Reference Range Interpretation Comments Eosinophils (test code = 3.2 See_Comment [A utomated message] The Eosinophils) system which ge nerated this result tra nsmitted reference range : <=4.0. The reference r patria was not used to int erpret this result as normal/abnormal . [facility] CenterCaahnarJWZDQOPOQC7517-48-72 05:36:00 Test Item Value Reference Range Interpretation Comments Basophils (test code = 1.5 See_Comment [Aut omated message] The Basophils) system which ge nerated this result tra nsmitted reference range : <=1.0. The reference r patria was not used to int erpret this result as normal/abnormal . [facility] CenterXdyylqeBCYWZTSSCC7900-80-23 05:36:00 Test Item Value Reference Range Interpretation Comments Neutrophils # (test code = Neutrophils 3.4 1.5-8.1 #) [id number] [facility]:36:00 Test Item Value Reference Range Interpretation Comments Lymphocytes # (test code = Lymphocytes 1.6 1.0-5.5 #) [id number] 05:36:00 Test Item Value Reference Range Interpretation Comments Monocytes # (test code 0.8 See_Comment [Aut omated message] The = Monocytes #) system which generated this result tra nsmitted reference range : <=0.8. The reference r patria was not used to int erpret this result as normal/abnormal . [id number] 05:36:00 Test Item Value Reference Range Interpretation Comments Eosinophils # (test code 0.2 See_Comment [A utomated message] The = Eosinophils #) system whic h generated this result tra nsmitted reference range : <=0.5. The reference r patria was not used to int erpret this result as normal/abnormal . [facility] [id number] 05:36:00 Test Item Value Reference Range Interpretation Comments Basophils # (test code 0.1 See_Comment [Aut omated message] The = Basophils #) system which generated this result tra nsmitted reference range : <=0.2. The reference r patria was not used to int erpret this result as normal/abnormal . [facility] R[id number] 05:36:00 Test Item Value Reference Range Interpretation Comments Macrocyte (test code = 1+ *ABN*(02/06/20 Macrocyte) 12:36 AM) [facility] ResourcesannPARATHYROID [id number] 05:36:00 Test Item Value Reference Range Interpretation Comments Ca Ion WB (test code = Ca Ion WB) 1.16 1.05-1.25 [facility] ResourcesannPARATHYROID [id number] 05:36:00 Test Item Value Reference Range Interpretation Comments Ca Norm WB (test code = Ca Norm WB) 1.18 1.05-1.25 [facility] ResourcesannIndependent Space [id number] 21:57:00 Test Item Value Reference Range Interpretation Comments Ammonia (test code = Ammonia) no [facility] [id number] 21:57:00 Test Item Value Reference Range Interpretation Comments Ammonia (test code = Ammonia) no [facility] DGSEannCHEM [id number] 21:57:00 Test Item Value Reference Range Interpretation Comments Ammonia (test code = Ammonia) no [facility] [id number] 21:57:00 Test Item Value Reference Range Interpretation Comments Ammonia (test code = Ammonia) no [facility] [id number] 21:57:00 Test Item Value Reference Range Interpretation Comments Ammonia (test code = Ammonia) no [facility] [id number] 21:57:00 Test Item Value Reference Range Interpretation Comments Ammonia (test code = Ammonia) no [facility] DGSEannCHEM [id number] 21:57:00 Test Item Value Reference Range Interpretation Comments Ammonia (test code = Ammonia) no [facility] DGSEannCHEM [id number] 21:57:00 Test Item Value Reference Range Interpretation Comments Ammonia (test code = Ammonia) no [facility] DGSEannCHEM [id number] 21:57:00 Test Item Value Reference Range Interpretation Comments Ammonia (test code = Ammonia) no [facility] DGSEannIn[employer] Space [id number] 21:57:00 Test Item Value Reference Range Interpretation Comments Ammonia (test code = Ammonia) no [facility] HermannCHEM [id number] 21:57:00 Test Item Value Reference Range Interpretation Comments Ammonia (test code = Ammonia) no gt [facility]annCHEM [id number] 21:57:00 Test Item Value Reference Range Interpretation Comments Ammonia (test code = Ammonia) no gt [facility]annCARDIAC [id number] 14:41:00 Test Item Value Reference Range Interpretation Comments BNP (test code = BNP) 165 [facility]annCARDIAC [id number] 14:41:00 Test Item Value Reference Range Interpretation Comments BNP (test code = BNP) 165 [facility]annCARDIAC [id number] 14:41:00 Test Item Value Reference Range Interpretation Comments BNP (test code = BNP) 165 [facility]annCARDIAC [id number] 14:41:00 Test Item Value Reference Range Interpretation Comments BNP (test code = BNP) 165 [facility]annCARDIAC [id number] 14:41:00 Test Item Value Reference Range Interpretation Comments BNP (test code = BNP) 165 [facility]annCARDIAC [id number] 14:41:00 Test Item Value Reference Range Interpretation Comments BNP (test code = BNP) 165 [facility]annCARDIAC [id number] 14:41:00 Test Item Value Reference Range Interpretation Comments BNP (test code = BNP) 165 [facility]annCARDIAC [id number] 14:41:00 Test Item Value Reference Range Interpretation Comments BNP (test code = BNP) 165 [facility]annCARDIAC [id number] 14:41:00 Test Item Value Reference Range Interpretation Comments BNP (test code = BNP) 165 [facility]annCARDIAC [id number] 14:41:00 Test Item Value Reference Range Interpretation Comments BNP (test code = BNP) 165 [facility]annCARDIAC [id number] 14:41:00 Test Item Value Reference Range Interpretation Comments BNP (test code = BNP) 165 [facility]annCARDIAC [id number] 14:41:00 Test Item Value Reference Range Interpretation Comments BNP (test code = BNP) 165 [facility] ResourcesannCulture: [id number] 09:44:00 Test Item Value Reference Range Interpretation Comments Culture: Urine (test 10,000 - 50,000 CFU/mL code = Culture: Urine) Yeast [facility]annCulture: [id number] 09:44:00 Test Item Value Reference Range Interpretation Comments Culture: Urine (test 10,000 - 50,000 CFU/mL code = Culture: Urine) Yeast [facility]annCulture: [id number] 09:44:00 Test Item Value Reference Range Interpretation Comments Culture: Urine (test 10,000 - 50,000 CFU/mL code = Culture: Urine) Yeast [facility]annCulture: [id number] 09:44:00 Test Item Value Reference Range Interpretation Comments Culture: Urine (test 10,000 - 50,000 CFU/mL code = Culture: Urine) Yeast [facility]annCulture: [id number] 09:44:00 Test Item Value Reference Range Interpretation Comments Culture: Urine (test 10,000 - 50,000 CFU/mL code = Culture: Urine) Yeast [facility] HermannCulture: [id number] 09:44:00 Test Item Value Reference Range Interpretation Comments Culture: Urine (test 10,000 - 50,000 CFU/mL code = Culture: Urine) Yeast [facility]annCulture: [id number] 09:44:00 Test Item Value Reference Range Interpretation Comments Culture: Urine (test 10,000 - 50,000 CFU/mL code = Culture: Urine) Yeast [facility]annCulture: [id number] 09:44:00 Test Item Value Reference Range Interpretation Comments Culture: Urine (test 10,000 - 50,000 CFU/mL code = Culture: Urine) Yeast [facility] HermannCulture: [id number] 09:44:00 Test Item Value Reference Range Interpretation Comments Culture: Urine (test 10,000 - 50,000 CFU/mL code = Culture: Urine) Yeast [facility]annCulture: [id number] 09:44:00 Test Item Value Reference Range Interpretation Comments Culture: Urine (test 10,000 - 50,000 CFU/mL code = Culture: Urine) Yeast [facility]annCulture: [id number] 09:44:00 Test Item Value Reference Range Interpretation Comments Culture: Urine (test 10,000 - 50,000 CFU/mL code = Culture: Urine) Yeast [facility]annCulture: [id number] 09:44:00 Test Item Value Reference Range Interpretation Comments Culture: Urine (test 10,000 - 50,000 CFU/mL code = Culture: Urine) Yeast [facility] AND [id number] 06:48:00 Test Item Value Reference Range Interpretation Comments UA Color (test code = Yellow *NA*(02/05/20 UA Color) 1:48 AM) [facility] AND [id number] 06:48:00 Test Item Value Reference Range Interpretation Comments UA Turbidity (test code Slight *ABN*(02/05/20 = UA Turbidity) 1:48 AM) [facility] AND [id number] 06:48:00 Test Item Value Reference Range Interpretation Comments UA Spec Grav (test code = UA Spec 1.017 1 Grav) [facility] AND [id number] 06:48:00 Test Item Value Reference Range Interpretation Comments UA pH (test code = UA pH) 5.0 1 5.0-8.0 [facility] AND [id number] 06:48:00 Test Item Value Reference Range Interpretation Comments UA Protein (test code = UA Protein) 100 mg/dL [facility] [id number] 06:48:00 Test Item Value Reference Range Interpretation Comments UA Ketones (test code = UA Ketones) 20 mg/dL [facility] [id number] 06:48:00 Test Item Value Reference Range Interpretation Comments UA Bili (test code = Negative *NA*(02/05/20 UA Bili) 1:48 AM) [facility] AND [id number] 06:48:00 Test Item Value Reference Range Interpretation Comments UA Blood (test code = Moderate *ABN*(02/05/20 UA Blood) 1:48 AM) [facility] AND [id number] 06:48:00 Test Item Value Reference Range Interpretation Comments UA Urobilinogen (test code = UA no gt 0.1-1.0 Urobilinogen) [facility] AND [id number] 06:48:00 Test Item Value Reference Range Interpretation Comments UA Nitrite (test code Negative (02/05/20 1:48 = UA Nitrite) AM) [facility] [id number] 06:48:00 Test Item Value Reference Range Interpretation Comments UA Leuk Est (test code Small *ABN*(02/05/20 = UA Leuk Est) 1:48 AM) [facility] AND [id number] 06:48:00 Test Item Value Reference Range Interpretation Comments UA Sq Epi (test code = UA Sq Occasional /LPF Epi) [facility] [id number] 06:48:00 Test Item Value Reference Range Interpretation Comments UA WBC (test code = 52 See_Comment [Automa rosendo message] The UA WBC) system which ge nerated this result transmit rosendo reference range : <=5. The reference range was not used to interpr et this result as josi l/abnormal. [facility] AND [id number] 06:48:00 Test Item Value Reference Range Interpretation Comments UA RBC (test code = 5 See_Comment [Automa rosendo message] The UA RBC) system which ge nerated this result transmit rosendo reference range : <=2. The reference range was not used to interpr et this result as josi l/abnormal. [facility] AND [id number] 06:48:00 Test Item Value Reference Range Interpretation Comments UA Mucus (test code = UA Mucus) Few /LPF [facility] [id number] 06:48:00 Test Item Value Reference Range Interpretation Comments UA Amorph Alejandra (test code = Occasional /HPF UA Amorph Alejandra) [facility] [id number] 06:48:00 Test Item Value Reference Range Interpretation Comments UA Hyal Cast (test 3 See_Comment [Automat ed message] The code = UA Hyal Cast) system which generated this result transmit rosendo reference range : <=2. The reference range was not used to interpr et this result as josi l/abnormal. [facility] [id number] 06:48:00 Test Item Value Reference Range Interpretation Comments UA Trans Epi (test code = UA Trans Epi) 7 [facility] [id number] 06:48:00 Test Item Value Reference Range Interpretation Comments UA Glucose (test code = UA Glucose) 50mg/dl [facility] [id number] 06:48:00 Test Item Value Reference Range Interpretation Comments UA Color (test code = Yellow *NA*(02/05/20 UA Color) 1:48 AM) [facility] [id number] 06:48:00 Test Item Value Reference Range Interpretation Comments UA Turbidity (test code Slight *ABN*(02/05/20 = UA Turbidity) 1:48 AM) [facility] [id number] 06:48:00 Test Item Value Reference Range Interpretation Comments UA Spec Grav (test code = UA Spec 1.017 1 Grav) [facility] [id number] 06:48:00 Test Item Value Reference Range Interpretation Comments UA pH (test code = UA pH) 5.0 1 5.0-8.0 [facility] [id number] 06:48:00 Test Item Value Reference Range Interpretation Comments UA Protein (test code = UA Protein) 100 mg/dL [facility] [id number] 06:48:00 Test Item Value Reference Range Interpretation Comments UA Ketones (test code = UA Ketones) 20 mg/dL [facility] [id number] 06:48:00 Test Item Value Reference Range Interpretation Comments UA Bili (test code = Negative *NA*(02/05/20 UA Bili) 1:48 AM) [facility] [id number] 06:48:00 Test Item Value Reference Range Interpretation Comments UA Blood (test code = Moderate *ABN*(02/05/20 UA Blood) 1:48 AM) [facility] [id number] 06:48:00 Test Item Value Reference Range Interpretation Comments UA Urobilinogen (test code = UA no gt 0.1-1.0 Urobilinogen) [facility] [id number] 06:48:00 Test Item Value Reference Range Interpretation Comments UA Nitrite (test code Negative (02/05/20 1:48 = UA Nitrite) AM) [facility] [id number] 06:48:00 Test Item Value Reference Range Interpretation Comments UA Leuk Est (test code Small *ABN*(02/05/20 = UA Leuk Est) 1:48 AM) [facility] [id number] 06:48:00 Test Item Value Reference Range Interpretation Comments UA Sq Epi (test code = UA Sq Occasional /LPF Epi) [facility] [id number] 06:48:00 Test Item Value Reference Range Interpretation Comments UA WBC (test code = 52 See_Comment [Automa rosendo message] The UA WBC) system which ge nerated this result transmit rosendo reference range : <=5. The reference range was not used to interpr et this result as josi l/abnormal. [facility] SyedURINE AND [id number] 06:48:00 Test Item Value Reference Range Interpretation Comments UA RBC (test code = 5 See_Comment [Automa rosendo message] The UA RBC) system which ge nerated this result transmit rosendo reference range : <=2. The reference range was not used to interpr et this result as josi l/abnormal. [facility] Jake AND [id number] 06:48:00 Test Item Value Reference Range Interpretation Comments UA Mucus (test code = UA Mucus) Few /LPF [facility] AND [id number] 06:48:00 Test Item Value Reference Range Interpretation Comments UA Amorph Alejandra (test code = Occasional /HPF UA Amorph Alejandra) [facility] AND [id number] 06:48:00 Test Item Value Reference Range Interpretation Comments UA Hyal Cast (test 3 See_Comment [Automat ed message] The code = UA Hyal Cast) system which generated this result transmit rosendo reference range : <=2. The reference range was not used to interpr et this result as josi l/abnormal. [facility] aJke AND [id number] 06:48:00 Test Item Value Reference Range Interpretation Comments UA Trans Epi (test code = UA Trans Epi) 7 [facility] AND [id number] 06:48:00 Test Item Value Reference Range Interpretation Comments UA Glucose (test code = UA Glucose) 50mg/dl [facility] AND [id number] 06:48:00 Test Item Value Reference Range Interpretation Comments UA Color (test code = Yellow *NA*(02/05/20 UA Color) 1:48 AM) [facility] SyedURINE AND [id number] 06:48:00 Test Item Value Reference Range Interpretation Comments UA Turbidity (test code Slight *ABN*(02/05/20 = UA Turbidity) 1:48 AM) [facility] AND [id number] 06:48:00 Test Item Value Reference Range Interpretation Comments UA Spec Grav (test code = UA Spec 1.017 1 Grav) [facility] [id number] 06:48:00 Test Item Value Reference Range Interpretation Comments UA pH (test code = UA pH) 5.0 1 5.0-8.0 [facility] [id number] 06:48:00 Test Item Value Reference Range Interpretation Comments UA Protein (test code = UA Protein) 100 mg/dL [facility] [id number] 06:48:00 Test Item Value Reference Range Interpretation Comments UA Ketones (test code = UA Ketones) 20 mg/dL [facility] [id number] 06:48:00 Test Item Value Reference Range Interpretation Comments UA Bili (test code = Negative *NA*(02/05/20 UA Bili) 1:48 AM) [facility] [id number] 06:48:00 Test Item Value Reference Range Interpretation Comments UA Blood (test code = Moderate *ABN*(02/05/20 UA Blood) 1:48 AM) [facility] [id number] 06:48:00 Test Item Value Reference Range Interpretation Comments UA Urobilinogen (test code = UA no gt 0.1-1.0 Urobilinogen) [facility] [id number] 06:48:00 Test Item Value Reference Range Interpretation Comments UA Nitrite (test code Negative (02/05/20 1:48 = UA Nitrite) AM) [facility] [id number] 06:48:00 Test Item Value Reference Range Interpretation Comments UA Leuk Est (test code Small *ABN*(02/05/20 = UA Leuk Est) 1:48 AM) [facility] [id number] 06:48:00 Test Item Value Reference Range Interpretation Comments UA Sq Epi (test code = UA Sq Occasional /LPF Epi) [facility] [id number] 06:48:00 Test Item Value Reference Range Interpretation Comments UA WBC (test code = 52 See_Comment [Automa rosendo message] The UA WBC) system which ge nerated this result transmit rosendo reference range : <=5. The reference range was not used to interpr et this result as josi l/abnormal. [facility] [id number] 06:48:00 Test Item Value Reference Range Interpretation Comments UA RBC (test code = 5 See_Comment [Automa rosendo message] The UA RBC) system which ge nerated this result transmit rosendo reference range : <=2. The reference range was not used to interpr et this result as josi l/abnormal. [facility] Jake AND [id number] 06:48:00 Test Item Value Reference Range Interpretation Comments UA Mucus (test code = UA Mucus) Few /LPF [facility] KateannURINE AND [id number] 06:48:00 Test Item Value Reference Range Interpretation Comments UA Amorph Alejandra (test code = Occasional /HPF UA Amorph Alejandra) [facility] AND [id number] 06:48:00 Test Item Value Reference Range Interpretation Comments UA Hyal Cast (test 3 See_Comment [Automat ed message] The code = UA Hyal Cast) system which generated this result transmit rosendo reference range : <=2. The reference range was not used to interpr et this result as josi l/abnormal. [facility]edURINE AND [id number] 06:48:00 Test Item Value Reference Range Interpretation Comments UA Trans Epi (test code = UA Trans Epi) 7 [facility] AND [id number] 06:48:00 Test Item Value Reference Range Interpretation Comments UA Glucose (test code = UA Glucose) 50mg/dl [facility] [id number] 06:48:00 Test Item Value Reference Range Interpretation Comments UA Color (test code = Yellow *NA*(02/05/20 UA Color) 1:48 AM) [facility] AND [id number] 06:48:00 Test Item Value Reference Range Interpretation Comments UA Turbidity (test code Slight *ABN*(02/05/20 = UA Turbidity) 1:48 AM) [facility] AND [id number] 06:48:00 Test Item Value Reference Range Interpretation Comments UA Spec Grav (test code = UA Spec 1.017 1 Grav) [facility] AND [id number] 06:48:00 Test Item Value Reference Range Interpretation Comments UA pH (test code = UA pH) 5.0 1 5.0-8.0 [facility] AND [id number] 06:48:00 Test Item Value Reference Range Interpretation Comments UA Protein (test code = UA Protein) 100 mg/dL [facility] [id number] 06:48:00 Test Item Value Reference Range Interpretation Comments UA Ketones (test code = UA Ketones) 20 mg/dL [facility] [id number] 06:48:00 Test Item Value Reference Range Interpretation Comments UA Bili (test code = Negative *NA*(02/05/20 UA Bili) 1:48 AM) [facility] [id number] 06:48:00 Test Item Value Reference Range Interpretation Comments UA Blood (test code = Moderate *ABN*(02/05/20 UA Blood) 1:48 AM) [facility] [id number] 06:48:00 Test Item Value Reference Range Interpretation Comments UA Urobilinogen (test code = UA no gt 0.1-1.0 Urobilinogen) [facility] [id number] 06:48:00 Test Item Value Reference Range Interpretation Comments UA Nitrite (test code Negative (02/05/20 1:48 = UA Nitrite) AM) [facility] [id number] 06:48:00 Test Item Value Reference Range Interpretation Comments UA Leuk Est (test code Small *ABN*(02/05/20 = UA Leuk Est) 1:48 AM) [facility] HermannURINE AND [id number] 06:48:00 Test Item Value Reference Range Interpretation Comments UA Sq Epi (test code = UA Sq Occasional /LPF Epi) [facility] AND [id number] 06:48:00 Test Item Value Reference Range Interpretation Comments UA WBC (test code = 52 See_Comment [Automa rosendo message] The UA WBC) system which ge nerated this result transmit rosendo reference range : <=5. The reference range was not used to interpr et this result as josi l/abnormal. [facility] [id number] 06:48:00 Test Item Value Reference Range Interpretation Comments UA RBC (test code = 5 See_Comment [Automa rosendo message] The UA RBC) system which ge nerated this result transmit rosendo reference range : <=2. The reference range was not used to interpr et this result as josi l/abnormal. [facility] [id number] 06:48:00 Test Item Value Reference Range Interpretation Comments UA Mucus (test code = UA Mucus) Few /LPF [facility] AND [id number] 06:48:00 Test Item Value Reference Range Interpretation Comments UA Amorph Alejandra (test code = Occasional /HPF UA Amorph Alejandra) [facility] AND [id number] 06:48:00 Test Item Value Reference Range Interpretation Comments UA Hyal Cast (test 3 See_Comment [Automat ed message] The code = UA Hyal Cast) system which generated this result transmit rosendo reference range : <=2. The reference range was not used to interpr et this result as josi l/abnormal. [facility] AND [id number] 06:48:00 Test Item Value Reference Range Interpretation Comments UA Trans Epi (test code = UA Trans Epi) 7 [facility] AND [id number] 06:48:00 Test Item Value Reference Range Interpretation Comments UA Glucose (test code = UA Glucose) 50mg/dl [facility] AND [id number] 06:48:00 Test Item Value Reference Range Interpretation Comments UA Color (test code = Yellow *NA*(02/05/20 UA Color) 1:48 AM) [facility] AND [id number] 06:48:00 Test Item Value Reference Range Interpretation Comments UA Turbidity (test code Slight *ABN*(02/05/20 = UA Turbidity) 1:48 AM) [facility] AND [id number] 06:48:00 Test Item Value Reference Range Interpretation Comments UA Spec Grav (test code = UA Spec 1.017 1 Grav) [facility] AND [id number] 06:48:00 Test Item Value Reference Range Interpretation Comments UA pH (test code = UA pH) 5.0 1 5.0-8.0 [facility] AND [id number] 06:48:00 Test Item Value Reference Range Interpretation Comments UA Protein (test code = UA Protein) 100 mg/dL [facility] AND [id number] 06:48:00 Test Item Value Reference Range Interpretation Comments UA Ketones (test code = UA Ketones) 20 mg/dL [facility] AND [id number] 06:48:00 Test Item Value Reference Range Interpretation Comments UA Bili (test code = Negative *NA*(02/05/20 UA Bili) 1:48 AM) [facility] [id number] 06:48:00 Test Item Value Reference Range Interpretation Comments UA Blood (test code = Moderate *ABN*(02/05/20 UA Blood) 1:48 AM) [facility] [id number] 06:48:00 Test Item Value Reference Range Interpretation Comments UA Urobilinogen (test code = UA no gt 0.1-1.0 Urobilinogen) [facility] [id number] 06:48:00 Test Item Value Reference Range Interpretation Comments UA Nitrite (test code Negative (02/05/20 1:48 = UA Nitrite) AM) [facility] [id number] 06:48:00 Test Item Value Reference Range Interpretation Comments UA Leuk Est (test code Small *ABN*(02/05/20 = UA Leuk Est) 1:48 AM) [facility] [id number] 06:48:00 Test Item Value Reference Range Interpretation Comments UA Sq Epi (test code = UA Sq Occasional /LPF Epi) [facility] [id number] 06:48:00 Test Item Value Reference Range Interpretation Comments UA WBC (test code = 52 See_Comment [Automa rosendo message] The UA WBC) system which ge nerated this result transmit rosendo reference range : <=5. The reference range was not used to interpr et this result as josi l/abnormal. [facility] [id number] 06:48:00 Test Item Value Reference Range Interpretation Comments UA RBC (test code = 5 See_Comment [Automa rosendo message] The UA RBC) system which ge nerated this result transmit rosendo reference range : <=2. The reference range was not used to interpr et this result as josi l/abnormal. [facility] [id number] 06:48:00 Test Item Value Reference Range Interpretation Comments UA Mucus (test code = UA Mucus) Few /LPF [facility] [id number] 06:48:00 Test Item Value Reference Range Interpretation Comments UA Amorph Alejandra (test code = Occasional /HPF UA Amorph Alejandra) [facility] [id number] 06:48:00 Test Item Value Reference Range Interpretation Comments UA Hyal Cast (test 3 See_Comment [Automat ed message] The code = UA Hyal Cast) system which generated this result transmit rosendo reference range : <=2. The reference range was not used to interpr et this result as josi l/abnormal. [facility] AND [id number] 06:48:00 Test Item Value Reference Range Interpretation Comments UA Trans Epi (test code = UA Trans Epi) 7 [facility] AND [id number] 06:48:00 Test Item Value Reference Range Interpretation Comments UA Glucose (test code = UA Glucose) 50mg/dl [facility] AND [id number] 06:48:00 Test Item Value Reference Range Interpretation Comments UA Color (test code = Yellow *NA*(02/05/20 UA Color) 1:48 AM) [facility] AND [id number] 06:48:00 Test Item Value Reference Range Interpretation Comments UA Turbidity (test code Slight *ABN*(02/05/20 = UA Turbidity) 1:48 AM) [facility] AND [id number] 06:48:00 Test Item Value Reference Range Interpretation Comments UA Spec Grav (test code = UA Spec 1.017 1 Grav) [facility] AND [id number] 06:48:00 Test Item Value Reference Range Interpretation Comments UA pH (test code = UA pH) 5.0 1 5.0-8.0 [facility] AND [id number] 06:48:00 Test Item Value Reference Range Interpretation Comments UA Protein (test code = UA Protein) 100 mg/dL [facility] AND [id number] 06:48:00 Test Item Value Reference Range Interpretation Comments UA Ketones (test code = UA Ketones) 20 mg/dL [facility] AND [id number] 06:48:00 Test Item Value Reference Range Interpretation Comments UA Bili (test code = Negative *NA*(02/05/20 UA Bili) 1:48 AM) [facility] AND [id number] 06:48:00 Test Item Value Reference Range Interpretation Comments UA Blood (test code = Moderate *ABN*(02/05/20 UA Blood) 1:48 AM) [facility] [id number] 06:48:00 Test Item Value Reference Range Interpretation Comments UA Urobilinogen (test code = UA no gt 0.1-1.0 Urobilinogen) [facility] [id number] 06:48:00 Test Item Value Reference Range Interpretation Comments UA Nitrite (test code Negative (02/05/20 1:48 = UA Nitrite) AM) [facility] [id number] 06:48:00 Test Item Value Reference Range Interpretation Comments UA Leuk Est (test code Small *ABN*(02/05/20 = UA Leuk Est) 1:48 AM) [facility] [id number] 06:48:00 Test Item Value Reference Range Interpretation Comments UA Sq Epi (test code = UA Sq Occasional /LPF Epi) [facility] [id number] 06:48:00 Test Item Value Reference Range Interpretation Comments UA WBC (test code = 52 See_Comment [Automa rosendo message] The UA WBC) system which ge nerated this result transmit rosendo reference range : <=5. The reference range was not used to interpr et this result as josi l/abnormal. [facility] [id number] 06:48:00 Test Item Value Reference Range Interpretation Comments UA RBC (test code = 5 See_Comment [Automa rosendo message] The UA RBC) system which ge nerated this result transmit rosendo reference range : <=2. The reference range was not used to interpr et this result as josi l/abnormal. [facility] [id number] 06:48:00 Test Item Value Reference Range Interpretation Comments UA Mucus (test code = UA Mucus) Few /LPF [facility] [id number] 06:48:00 Test Item Value Reference Range Interpretation Comments UA Amorph Alejandra (test code = Occasional /HPF UA Amorph Alejandra) [facility] [id number] 06:48:00 Test Item Value Reference Range Interpretation Comments UA Hyal Cast (test 3 See_Comment [Automat ed message] The code = UA Hyal Cast) system which generated this result transmit rosendo reference range : <=2. The reference range was not used to interpr et this result as josi l/abnormal. [facility] [id number] 06:48:00 Test Item Value Reference Range Interpretation Comments UA Trans Epi (test code = UA Trans Epi) 7 [facility] AND [id number] 06:48:00 Test Item Value Reference Range Interpretation Comments UA Glucose (test code = UA Glucose) 50mg/dl [facility] AND [id number] 06:48:00 Test Item Value Reference Range Interpretation Comments UA Color (test code = Yellow *NA*(02/05/20 UA Color) 1:48 AM) [facility] AND [id number] 06:48:00 Test Item Value Reference Range Interpretation Comments UA Turbidity (test code Slight *ABN*(02/05/20 = UA Turbidity) 1:48 AM) [facility] AND [id number] 06:48:00 Test Item Value Reference Range Interpretation Comments UA Spec Grav (test code = UA Spec 1.017 1 Grav) [facility] AND [id number] 06:48:00 Test Item Value Reference Range Interpretation Comments UA pH (test code = UA pH) 5.0 1 5.0-8.0 [facility] AND [id number] 06:48:00 Test Item Value Reference Range Interpretation Comments UA Protein (test code = UA Protein) 100 mg/dL [facility] AND [id number] 06:48:00 Test Item Value Reference Range Interpretation Comments UA Ketones (test code = UA Ketones) 20 mg/dL [facility] AND [id number] 06:48:00 Test Item Value Reference Range Interpretation Comments UA Bili (test code = Negative *NA*(02/05/20 UA Bili) 1:48 AM) [facility] AND [id number] 06:48:00 Test Item Value Reference Range Interpretation Comments UA Blood (test code = Moderate *ABN*(02/05/20 UA Blood) 1:48 AM) [facility] AND [id number] 06:48:00 Test Item Value Reference Range Interpretation Comments UA Urobilinogen (test code = UA no gt 0.1-1.0 Urobilinogen) [facility] AND [id number] 06:48:00 Test Item Value Reference Range Interpretation Comments UA Nitrite (test code Negative (02/05/20 1:48 = UA Nitrite) AM) [facility] [id number] 06:48:00 Test Item Value Reference Range Interpretation Comments UA Leuk Est (test code Small *ABN*(02/05/20 = UA Leuk Est) 1:48 AM) [facility] [id number] 06:48:00 Test Item Value Reference Range Interpretation Comments UA Sq Epi (test code = UA Sq Occasional /LPF Epi) [facility] [id number] 06:48:00 Test Item Value Reference Range Interpretation Comments UA WBC (test code = 52 See_Comment [Automa rosendo message] The UA WBC) system which ge nerated this result transmit rosendo reference range : <=5. The reference range was not used to interpr et this result as josi l/abnormal. [facility] [id number] 06:48:00 Test Item Value Reference Range Interpretation Comments UA RBC (test code = 5 See_Comment [Automa rosendo message] The UA RBC) system which ge nerated this result transmit rosendo reference range : <=2. The reference range was not used to interpr et this result as josi l/abnormal. [facility] [id number] 06:48:00 Test Item Value Reference Range Interpretation Comments UA Mucus (test code = UA Mucus) Few /LPF [facility] AND [id number] 06:48:00 Test Item Value Reference Range Interpretation Comments UA Amorph Alejandra (test code = Occasional /HPF UA Amorph Alejandra) [facility] AND [id number] 06:48:00 Test Item Value Reference Range Interpretation Comments UA Hyal Cast (test 3 See_Comment [Automat ed message] The code = UA Hyal Cast) system which generated this result transmit rosendo reference range : <=2. The reference range was not used to interpr et this result as josi l/abnormal. [facility] [id number] 06:48:00 Test Item Value Reference Range Interpretation Comments UA Trans Epi (test code = UA Trans Epi) 7 [facility] AND [id number] 06:48:00 Test Item Value Reference Range Interpretation Comments UA Glucose (test code = UA Glucose) 50mg/dl [facility] [id number] 06:48:00 Test Item Value Reference Range Interpretation Comments UA Color (test code = Yellow *NA*(02/05/20 UA Color) 1:48 AM) [facility] AND [id number] 06:48:00 Test Item Value Reference Range Interpretation Comments UA Turbidity (test code Slight *ABN*(02/05/20 = UA Turbidity) 1:48 AM) [facility] AND [id number] 06:48:00 Test Item Value Reference Range Interpretation Comments UA Spec Grav (test code = UA Spec 1.017 1 Grav) [facility] [id number] 06:48:00 Test Item Value Reference Range Interpretation Comments UA pH (test code = UA pH) 5.0 1 5.0-8.0 [facility] [id number] 06:48:00 Test Item Value Reference Range Interpretation Comments UA Protein (test code = UA Protein) 100 mg/dL [facility] AND [id number] 06:48:00 Test Item Value Reference Range Interpretation Comments UA Ketones (test code = UA Ketones) 20 mg/dL [facility] AND [id number] 06:48:00 Test Item Value Reference Range Interpretation Comments UA Bili (test code = Negative *NA*(02/05/20 UA Bili) 1:48 AM) [facility] AND [id number] 06:48:00 Test Item Value Reference Range Interpretation Comments UA Blood (test code = Moderate *ABN*(02/05/20 UA Blood) 1:48 AM) [facility] [id number] 06:48:00 Test Item Value Reference Range Interpretation Comments UA Urobilinogen (test code = UA no gt 0.1-1.0 Urobilinogen) [facility] [id number] 06:48:00 Test Item Value Reference Range Interpretation Comments UA Nitrite (test code Negative (02/05/20 1:48 = UA Nitrite) AM) [facility] AND [id number] 06:48:00 Test Item Value Reference Range Interpretation Comments UA Leuk Est (test code Small *ABN*(02/05/20 = UA Leuk Est) 1:48 AM) [facility] [id number] 06:48:00 Test Item Value Reference Range Interpretation Comments UA Sq Epi (test code = UA Sq Occasional /LPF Epi) [facility] [id number] 06:48:00 Test Item Value Reference Range Interpretation Comments UA WBC (test code = 52 See_Comment [Automa rosendo message] The UA WBC) system which ge nerated this result transmit rosendo reference range : <=5. The reference range was not used to interpr et this result as josi l/abnormal. [facility] [id number] 06:48:00 Test Item Value Reference Range Interpretation Comments UA RBC (test code = 5 See_Comment [Automa rosendo message] The UA RBC) system which ge nerated this result transmit rosendo reference range : <=2. The reference range was not used to interpr et this result as josi l/abnormal. [facility] AND [id number] 06:48:00 Test Item Value Reference Range Interpretation Comments UA Mucus (test code = UA Mucus) Few /LPF [facility] [id number] 06:48:00 Test Item Value Reference Range Interpretation Comments UA Amorph Alejandra (test code = Occasional /HPF UA Amorph Alejandra) [facility] [id number] 06:48:00 Test Item Value Reference Range Interpretation Comments UA Hyal Cast (test 3 See_Comment [Automat ed message] The code = UA Hyal Cast) system which generated this result transmit rosendo reference range : <=2. The reference range was not used to interpr et this result as josi l/abnormal. [facility] [id number] 06:48:00 Test Item Value Reference Range Interpretation Comments UA Trans Epi (test code = UA Trans Epi) 7 [facility] AND [id number] 06:48:00 Test Item Value Reference Range Interpretation Comments UA Glucose (test code = UA Glucose) 50mg/dl [facility] AND [id number] 06:48:00 Test Item Value Reference Range Interpretation Comments UA Color (test code = Yellow *NA*(02/05/20 UA Color) 1:48 AM) [facility] [id number] 06:48:00 Test Item Value Reference Range Interpretation Comments UA Turbidity (test code Slight *ABN*(02/05/20 = UA Turbidity) 1:48 AM) [facility] [id number] 06:48:00 Test Item Value Reference Range Interpretation Comments UA Spec Grav (test code = UA Spec 1.017 1 Grav) [facility] [id number] 06:48:00 Test Item Value Reference Range Interpretation Comments UA pH (test code = UA pH) 5.0 1 5.0-8.0 [facility] [id number] 06:48:00 Test Item Value Reference Range Interpretation Comments UA Protein (test code = UA Protein) 100 mg/dL [facility] [id number] 06:48:00 Test Item Value Reference Range Interpretation Comments UA Ketones (test code = UA Ketones) 20 mg/dL [facility] [id number] 06:48:00 Test Item Value Reference Range Interpretation Comments UA Bili (test code = Negative *NA*(02/05/20 UA Bili) 1:48 AM) [facility] [id number] 06:48:00 Test Item Value Reference Range Interpretation Comments UA Blood (test code = Moderate *ABN*(02/05/20 UA Blood) 1:48 AM) [facility] [id number] 06:48:00 Test Item Value Reference Range Interpretation Comments UA Urobilinogen (test code = UA no gt 0.1-1.0 Urobilinogen) [facility] [id number] 06:48:00 Test Item Value Reference Range Interpretation Comments UA Nitrite (test code Negative (02/05/20 1:48 = UA Nitrite) AM) [facility] [id number] 06:48:00 Test Item Value Reference Range Interpretation Comments UA Leuk Est (test code Small *ABN*(02/05/20 = UA Leuk Est) 1:48 AM) [facility] [id number] 06:48:00 Test Item Value Reference Range Interpretation Comments UA Sq Epi (test code = UA Sq Occasional /LPF Epi) [facility] [id number] 06:48:00 Test Item Value Reference Range Interpretation Comments UA WBC (test code = 52 See_Comment [Automa rosendo message] The UA WBC) system which ge nerated this result transmit rosendo reference range : <=5. The reference range was not used to interpr et this result as josi l/abnormal. [facility] AND [id number] 06:48:00 Test Item Value Reference Range Interpretation Comments UA RBC (test code = 5 See_Comment [Automa rosendo message] The UA RBC) system which ge nerated this result transmit rosendo reference range : <=2. The reference range was not used to interpr et this result as josi l/abnormal. [facility] [id number] 06:48:00 Test Item Value Reference Range Interpretation Comments UA Mucus (test code = UA Mucus) Few /LPF [facility] AND [id number] 06:48:00 Test Item Value Reference Range Interpretation Comments UA Amorph Alejandra (test code = Occasional /HPF UA Amorph Alejandra) [facility] AND [id number] 06:48:00 Test Item Value Reference Range Interpretation Comments UA Hyal Cast (test 3 See_Comment [Automat ed message] The code = UA Hyal Cast) system which generated this result transmit rosendo reference range : <=2. The reference range was not used to interpr et this result as josi l/abnormal. [facility] [id number] 06:48:00 Test Item Value Reference Range Interpretation Comments UA Trans Epi (test code = UA Trans Epi) 7 [facility] AND [id number] 06:48:00 Test Item Value Reference Range Interpretation Comments UA Glucose (test code = UA Glucose) 50mg/dl [facility] AND [id number] 06:48:00 Test Item Value Reference Range Interpretation Comments UA Color (test code = Yellow *NA*(02/05/20 UA Color) 1:48 AM) [facility] AND [id number] 06:48:00 Test Item Value Reference Range Interpretation Comments UA Turbidity (test code Slight *ABN*(02/05/20 = UA Turbidity) 1:48 AM) [facility] AND [id number] 06:48:00 Test Item Value Reference Range Interpretation Comments UA Spec Grav (test code = UA Spec 1.017 1 Grav) [facility] AND [id number] 06:48:00 Test Item Value Reference Range Interpretation Comments UA pH (test code = UA pH) 5.0 1 5.0-8.0 [facility] AND [id number] 06:48:00 Test Item Value Reference Range Interpretation Comments UA Protein (test code = UA Protein) 100 mg/dL [facility] AND [id number] 06:48:00 Test Item Value Reference Range Interpretation Comments UA Ketones (test code = UA Ketones) 20 mg/dL [facility] AND [id number] 06:48:00 Test Item Value Reference Range Interpretation Comments UA Bili (test code = Negative *NA*(02/05/20 UA Bili) 1:48 AM) [facility] AND [id number] 06:48:00 Test Item Value Reference Range Interpretation Comments UA Blood (test code = Moderate *ABN*(02/05/20 UA Blood) 1:48 AM) [facility] AND [id number] 06:48:00 Test Item Value Reference Range Interpretation Comments UA Urobilinogen (test code = UA no gt 0.1-1.0 Urobilinogen) [facility] AND [id number] 06:48:00 Test Item Value Reference Range Interpretation Comments UA Nitrite (test code Negative (02/05/20 1:48 = UA Nitrite) AM) [facility] AND [id number] 06:48:00 Test Item Value Reference Range Interpretation Comments UA Leuk Est (test code Small *ABN*(02/05/20 = UA Leuk Est) 1:48 AM) [facility] AND [id number] 06:48:00 Test Item Value Reference Range Interpretation Comments UA Sq Epi (test code = UA Sq Occasional /LPF Epi) [facility] AND [id number] 06:48:00 Test Item Value Reference Range Interpretation Comments UA WBC (test code = 52 See_Comment [Automa rosendo message] The UA WBC) system which ge nerated this result transmit rosendo reference range : <=5. The reference range was not used to interpr et this result as josi l/abnormal. [facility] AND [id number] 06:48:00 Test Item Value Reference Range Interpretation Comments UA RBC (test code = 5 See_Comment [Automa rosendo message] The UA RBC) system which ge nerated this result transmit rosendo reference range : <=2. The reference range was not used to interpr et this result as josi l/abnormal. [facility] AND [id number] 06:48:00 Test Item Value Reference Range Interpretation Comments UA Mucus (test code = UA Mucus) Few /LPF [facility] [id number] 06:48:00 Test Item Value Reference Range Interpretation Comments UA Amorph Alejandra (test code = Occasional /HPF UA Amorph Alejandra) [facility] AND [id number] 06:48:00 Test Item Value Reference Range Interpretation Comments UA Hyal Cast (test 3 See_Comment [Automat ed message] The code = UA Hyal Cast) system which generated this result transmit rosendo reference range : <=2. The reference range was not used to interpr et this result as josi l/abnormal. [facility] AND [id number] 06:48:00 Test Item Value Reference Range Interpretation Comments UA Trans Epi (test code = UA Trans Epi) 7 [facility] AND [id number] 06:48:00 Test Item Value Reference Range Interpretation Comments UA Glucose (test code = UA Glucose) 50mg/dl [facility] AND [id number] 06:48:00 Test Item Value Reference Range Interpretation Comments UA Color (test code = Yellow *NA*(02/05/20 UA Color) 1:48 AM) [facility] AND [id number] 06:48:00 Test Item Value Reference Range Interpretation Comments UA Turbidity (test code Slight *ABN*(02/05/20 = UA Turbidity) 1:48 AM) [facility] AND [id number] 06:48:00 Test Item Value Reference Range Interpretation Comments UA Spec Grav (test code = UA Spec 1.017 1 Grav) [facility] AND [id number] 06:48:00 Test Item Value Reference Range Interpretation Comments UA pH (test code = UA pH) 5.0 1 5.0-8.0 [facility] AND [id number] 06:48:00 Test Item Value Reference Range Interpretation Comments UA Protein (test code = UA Protein) 100 mg/dL [facility] AND [id number] 06:48:00 Test Item Value Reference Range Interpretation Comments UA Ketones (test code = UA Ketones) 20 mg/dL [facility] [id number] 06:48:00 Test Item Value Reference Range Interpretation Comments UA Bili (test code = Negative *NA*(02/05/20 UA Bili) 1:48 AM) [facility] [id number] 06:48:00 Test Item Value Reference Range Interpretation Comments UA Blood (test code = Moderate *ABN*(02/05/20 UA Blood) 1:48 AM) [facility] [id number] 06:48:00 Test Item Value Reference Range Interpretation Comments UA Urobilinogen (test code = UA no gt 0.1-1.0 Urobilinogen) [facility] [id number] 06:48:00 Test Item Value Reference Range Interpretation Comments UA Nitrite (test code Negative (02/05/20 1:48 = UA Nitrite) AM) [facility] [id number] 06:48:00 Test Item Value Reference Range Interpretation Comments UA Leuk Est (test code Small *ABN*(02/05/20 = UA Leuk Est) 1:48 AM) [facility] [id number] 06:48:00 Test Item Value Reference Range Interpretation Comments UA Sq Epi (test code = UA Sq Occasional /LPF Epi) [facility] [id number] 06:48:00 Test Item Value Reference Range Interpretation Comments UA WBC (test code = 52 See_Comment [Automa rosendo message] The UA WBC) system which ge nerated this result transmit rosendo reference range : <=5. The reference range was not used to interpr et this result as josi [facility]. [facility] [id number] 06:48[facility]00 Test Item Value Reference Range Interpretation Comments UA RBC (test code = 5 See_Comment [Automa rosendo message] The UA RBC) system which ge nerated this result transmit rosendo reference range : <=2. The reference range was not used to interpr et this result as josi l/abnormal. [facility] [id number] 06:48:00 Test Item Value Reference Range Interpretation Comments UA Mucus (test code = UA Mucus) Few /LPF [facility] [id number] 06:48:00 Test Item Value Reference Range Interpretation Comments UA Amorph Alejandra (test code = Occasional /HPF UA Amorph Alejandra) [facility] AND [id number] 06:48:00 Test Item Value Reference Range Interpretation Comments UA Hyal Cast (test 3 See_Comment [Automat ed message] The code = UA Hyal Cast) system which generated this result transmit rosendo reference range : <=2. The reference range was not used to interpr et this result as josi l/abnormal. [facility] AND [id number] 06:48:00 Test Item Value Reference Range Interpretation Comments UA Trans Epi (test code = UA Trans Epi) 7 [facility] AND [id number] 06:48:00 Test Item Value Reference Range Interpretation Comments UA Glucose (test code = UA Glucose) 50mg/dl [facility] AND [id number] 06:48:00 Test Item Value Reference Range Interpretation Comments UA Color (test code = Yellow *NA*(02/05/20 UA Color) 1:48 AM) [facility] AND [id number] 06:48:00 Test Item Value Reference Range Interpretation Comments UA Turbidity (test code Slight *ABN*(02/05/20 = UA Turbidity) 1:48 AM) [facility] AND [id number] 06:48:00 Test Item Value Reference Range Interpretation Comments UA Spec Grav (test code = UA Spec 1.017 1 Grav) [facility] AND [id number] 06:48:00 Test Item Value Reference Range Interpretation Comments UA pH (test code = UA pH) 5.0 1 5.0-8.0 [facility] AND [id number] 06:48:00 Test Item Value Reference Range Interpretation Comments UA Protein (test code = UA Protein) 100 mg/dL [facility] AND [id number] 06:48:00 Test Item Value Reference Range Interpretation Comments UA Ketones (test code = UA Ketones) 20 mg/dL [facility] AND [id number] 06:48:00 Test Item Value Reference Range Interpretation Comments UA Bili (test code = Negative *NA*(02/05/20 UA Bili) 1:48 AM) [facility] AND [id number] 06:48:00 Test Item Value Reference Range Interpretation Comments UA Blood (test code = Moderate *ABN*(02/05/20 UA Blood) 1:48 AM) [facility] [id number] 06:48:00 Test Item Value Reference Range Interpretation Comments UA Urobilinogen (test code = UA no gt 0.1-1.0 Urobilinogen) [facility] [id number] 06:48:00 Test Item Value Reference Range Interpretation Comments UA Nitrite (test code Negative (02/05/20 1:48 = UA Nitrite) AM) [facility] [id number] 06:48:00 Test Item Value Reference Range Interpretation Comments UA Leuk Est (test code Small *ABN*(02/05/20 = UA Leuk Est) 1:48 AM) [facility] [id number] 06:48:00 Test Item Value Reference Range Interpretation Comments UA Sq Epi (test code = UA Sq Occasional /LPF Epi) [facility] AND [id number] 06:48:00 Test Item Value Reference Range Interpretation Comments UA WBC (test code = 52 See_Comment [Automa rosendo message] The UA WBC) system which ge nerated this result transmit rosendo reference range : <=5. The reference range was not used to interpr et this result as josi l/abnormal. [facility] [id number] 06:48:00 Test Item Value Reference Range Interpretation Comments UA RBC (test code = 5 See_Comment [Automa rosendo message] The UA RBC) system which ge nerated this result transmit rosendo reference range : <=2. The reference range was not used to interpr et this result as josi l/abnormal. [facility] [id number] 06:48:00 Test Item Value Reference Range Interpretation Comments UA Mucus (test code = UA Mucus) Few /LPF [facility] [id number] 06:48:00 Test Item Value Reference Range Interpretation Comments UA Amorph Alejandra (test code = Occasional /HPF UA Amorph Alejandra) [facility] [id number] 06:48:00 Test Item Value Reference Range Interpretation Comments UA Hyal Cast (test 3 See_Comment [Automat ed message] The code = UA Hyal Cast) system which generated this result transmit rosendo reference range : <=2. The reference range was not used to interpr et this result as josi l/abnormal. [facility]2020-03-27 06:48:00 Test Item Value Reference Range Interpretation Comments UA Trans Epi (test code = UA Trans Epi) 7 [facility]2020-03-27 06:48:00 Test Item Value Reference Range Interpretation Comments UA Glucose (test code = UA Glucose) 50mg/dl [facility]2020-03-27 05:39:00 Test Item Value Reference Range Interpretation Comments Glucose Lvl (test code = Glucose Lvl) 79 70-99 [facility]2020-03-27 05:39:00 Test Item Value Reference Range Interpretation Comments BUN (test code = BUN) 22 7-22 [facility]2020-03-27 05:39:00 Test Item Value Reference Range Interpretation Comments Creatinine Lvl (test code = Creatinine 1.28 0.50-1.40 Lvl) [facility]2020-03-27 05:39:00 Test Item Value Reference Range Interpretation Comments Sodium Lvl (test code = Sodium Lvl) 140 135-145 [facility]2020-03-27 05:39:00 Test Item Value Reference Range Interpretation Comments Potassium Lvl (test code = Potassium 3.3 3.5-5.1 Lvl) [facility]2020-03-27 05:39:00 Test Item Value Reference Range Interpretation Comments Chloride Lvl (test code = Chloride Lvl) 106 95-109 [facility]2020-03-27 05:39:00 Test Item Value Reference Range Interpretation Comments CO2 (test code = CO2) 24 24-32 [place] 542560-03-27 05:39:00 Test Item Value Reference Range Interpretation Comments Calcium Lvl (test code = Calcium Lvl) 9.3 8.5-10.5 [facility]2020-03-27 05:39:00 Test Item Value Reference Range Interpretation Comments AGAP (test code = AGAP) 13.3 10.0-20.0 [facility]2020-03-27 05:39:00 Test Item Value Reference Range Interpretation Comments eGFR (test code = eGFR) 40 [facility]2020-03-27 05:39:00 Test Item Value Reference Range Interpretation Comments Magnesium Lvl (test code = Magnesium 2.2 1.8-2.4 Lvl) [place] [address]-03-27 05:39:00 Test Item Value Reference Range Interpretation Comments Phosphorus (test code = Phosphorus) 2.9 2.5-4.5 [facility] [id number] 05:39:00 Test Item Value Reference Range Interpretation Comments Total Protein (test code = Total 7.7 6.4-8.4 Protein) [facility] [id number] 05:39:00 Test Item Value Reference Range Interpretation Comments Albumin Lvl (test code = Albumin Lvl) 3.1 3.5-5.0 [facility] [id number] 05:39:00 Test Item Value Reference Range Interpretation Comments ALT (test code = ALT) 19 See_Comment [Auto mated message] The system which ge nerated this result transmit rosendo reference range : <=65. The reference range was not used to interpr et this result as josi l/abnormal. [facility] [id number] 05:39:00 Test Item Value Reference Range Interpretation Comments AST (test code = AST) 26 See_Comment [Auto mated message] The system which ge nerated this result transmit rosendo reference range : <=37. The reference range was not used to interpr et this result as josi l/abnormal. [facility] [id number] 05:39:00 Test Item Value Reference Range Interpretation Comments Alk Phos (test code = Alk Phos) 75 39-136 [facility] [id number] 05:39:00 Test Item Value Reference Range Interpretation Comments Bili Total (test code = Bili Total) 0.6 0.2-1.3 [facility] [id number] 05:39:00 Test Item Value Reference Range Interpretation Comments Bili Direct (test code 0.2 See_Comment [Aut omated message] The = Bili Direct) system which generated this result tra nsmitted reference range : <=0.3. The reference r patria was not used to int erpret this result as josi l/abnormal. [facility] [employer] [id number] 05:39:00 Test Item Value Reference Range Interpretation Comments Bili Indirect (test 0.4 See_Comment [Automa rosendo message] The code = Bili Indirect) system which generated this result tra nsmitted reference range : <=1.0. The reference r patria was not used to int erpret this result as normal/abnormal . [facility] [id number] 05:39:00 Test Item Value Reference Range Interpretation Comments Globulin (test code = Globulin) 4.6 2.7-4.2 [facility] [id number] 05:39:00 Test Item Value Reference Range Interpretation Comments A/G Ratio (test code = A/G Ratio) 0.7 1 0.7-1.6 [facility] H[id number] 05:39:00 Test Item Value Reference Range Interpretation Comments WBC (test code = WBC) 7.2 3.7-10.4 [id number] 05:39:00 Test Item Value Reference Range Interpretation Comments RBC (test code = RBC) 2.76 4.20-5.40 [facility] HospitalMtfsodjDBLJLNBSXQ9228-02-87 05:39:00 Test Item Value Reference Range Interpretation Comments Hgb (test code = Hgb) 9.8 12.0-16.0 [facility] HospitalFzkhhzwDPUJQOBCPQ8915-57-12 05:39:00 Test Item Value Reference Range Interpretation Comments Hct (test code = Hct) 28.8 36.0-48.0 [facility] C[id number] 05:39:00 Test Item Value Reference Range Interpretation Comments MCV (test code = MCV) 104.3 80.0-98.0 [facility] HospitalApfhmpdGNJEXJSJJA2599-33-66 05:39:00 Test Item Value Reference Range Interpretation Comments MCH (test code = MCH) 35.6 pg 27.0-31.0 [facility] [id number] 05:39:00 Test Item Value Reference Range Interpretation Comments MCHC (test code = MCHC) 34.2 32.0-36.0 [facility] CenterWnbkbusZSZMINQQTB4623-82-91 05:39:00 Test Item Value Reference Range Interpretation Comments RDW (test code = RDW) 13.4 11.5-14.5 [facility] CenterBmxlrzmBKTSMADNQU0441-19-66 05:39:00 Test Item Value Reference Range Interpretation Comments Platelet (test code = Platelet) 424 704-901 [facility] CenterTolfobsSDUYPTRROU8265-36-57 05:39:00 Test Item Value Reference Range Interpretation Comments MPV (test code = MPV) 7.3 7.4-10.4 [facility] CenterQddjjcpESQVBCIGLL5523-29-61 05:39:00 Test Item Value Reference Range Interpretation Comments Segs (test code = Segs) 62.2 45.0-75.0 [facility] CenterHhqzqphQHMQEHXWJO2162-20-75 05:39:00 Test Item Value Reference Range Interpretation Comments Lymphocytes (test code = Lymphocytes) 21.5 20.0-40.0 [place] 519360-03-27 05:39:00 Test Item Value Reference Range Interpretation Comments Monocytes (test code = Monocytes) 11.7 2.0-12.0 [facility] CenterAktjvmuTFCKZKLZDJ7929-06-02 05:39:00 Test Item Value Reference Range Interpretation Comments Eosinophils (test code = 3.0 See_Comment [A utomated message] The Eosinophils) system which ge nerated this result tra nsmitted reference range : <=4.0. The reference r patria was not used to int erpret this result as normal/abnormal . [facility] CenterAzboiofCUQYACFMZP8982-09-72 05:39:00 Test Item Value Reference Range Interpretation Comments Basophils (test code = 1.6 See_Comment [Aut omated message] The Basophils) system which ge nerated this result tra nsmitted reference range : <=1.0. The reference r patria was not used to int erpret this result as normal/abnormal . [facility] CenterHhfbtddMOLKXSZTTE1298-71-92 05:39:00 Test Item Value Reference Range Interpretation Comments Neutrophils # (test code = Neutrophils 4.5 1.5-8.1 #) [place] 519360-03-27 05:39:00 Test Item Value Reference Range Interpretation Comments Lymphocytes # (test code = Lymphocytes 1.5 1.0-5.5 #) [place] [address]-03-27 05:39:00 Test Item Value Reference Range Interpretation Comments Monocytes # (test code 0.8 See_Comment [Aut omated message] The = Monocytes #) system which generated this result tra nsmitted reference range : <=0.8. The reference r patria was not used to int erpret this result as normal/abnormal . [facility] H[id number] 05:39:00 Test Item Value Reference Range Interpretation Comments Eosinophils # (test code 0.2 See_Comment [A utomated message] The = Eosinophils #) system whic h generated this result tra nsmitted reference range : <=0.5. The reference r patria was not used to int erpret this result as normal/abnormal . [facility] CenterMfbvprxJLXUPWFHDQ9494-81-17 05:39:00 Test Item Value Reference Range Interpretation Comments Basophils # (test code 0.1 See_Comment [Aut omated message] The = Basophils #) system which generated this result tra nsmitted reference range : <=0.2. The reference r patria was not used to int erpret this result as normal/abnormal . [facility] CenterQoyuxnuRDIZVXQVMR0430-57-14 05:39:00 Test Item Value Reference Range Interpretation Comments Macrocyte (test code = 1+ *ABN*(02/05/20 Macrocyte) 12:39 AM) [facility]2020-03-27 05:39:00 Test Item Value Reference Range Interpretation Comments Ca Ion WB (test code = Ca Ion WB) 1.22 1.05-1.25 [facility] [id number] 05:39:00 Test Item Value Reference Range Interpretation Comments Ca Norm WB (test code = Ca Norm WB) 1.20 1.05-1.25 [facility] [id number] 05:39:00 Test Item Value Reference Range Interpretation Comments Glucose Lvl (test code = Glucose Lvl) 79 70-99 [facility] [id number] 05:39:00 Test Item Value Reference Range Interpretation Comments BUN (test code = BUN) 22 7-22 [facility] [id number] 05:39:00 Test Item Value Reference Range Interpretation Comments Creatinine Lvl (test code = Creatinine 1.28 0.50-1.40 Lvl) [facility] [id number] 05:39:00 Test Item Value Reference Range Interpretation Comments Sodium Lvl (test code = Sodium Lvl) 140 135-145 [facility] [id number] 05:39:00 Test Item Value Reference Range Interpretation Comments Potassium Lvl (test code = Potassium 3.3 3.5-5.1 Lvl) [place] [address]-03-27 05:39:00 Test Item Value Reference Range Interpretation Comments Chloride Lvl (test code = Chloride Lvl) 106 95-109 [place] [address]-03-27 05:39:00 Test Item Value Reference Range Interpretation Comments CO2 (test code = CO2) 24 24-32 [place] [address]-03-27 05:39:00 Test Item Value Reference Range Interpretation Comments Calcium Lvl (test code = Calcium Lvl) 9.3 8.5-10.5 [place] [address]-03-27 05:39:00 Test Item Value Reference Range Interpretation Comments AGAP (test code = AGAP) 13.3 10.0-20.0 [place] [address]-03-27 05:39:00 Test Item Value Reference Range Interpretation Comments eGFR (test code = eGFR) 40 [place] [address]-03-27 05:39:00 Test Item Value Reference Range Interpretation Comments Magnesium Lvl (test code = Magnesium 2.2 1.8-2.4 Lvl) [place] [address]-03-27 05:39:00 Test Item Value Reference Range Interpretation Comments Phosphorus (test code = Phosphorus) 2.9 2.5-4.5 [place] [address]-03-27 05:39:00 Test Item Value Reference Range Interpretation Comments Total Protein (test code = Total 7.7 6.4-8.4 Protein) [address]03-27 05:39:00 Test Item Value Reference Range Interpretation Comments Albumin Lvl (test code = Albumin Lvl) 3.1 3.5-5.0 [place] [address]-03-27 05:39:00 Test Item Value Reference Range Interpretation Comments ALT (test code = ALT) 19 See_Comment [Auto mated message] The system which ge nerated this result transmit rosendo reference range : <=65. The reference range was not used to interpr et this result as josi l/abnormal. [place] [address]-03-27 05:39:00 Test Item Value Reference Range Interpretation Comments AST (test code = AST) 26 See_Comment [Auto mated message] The system which ge nerated this result transmit rosendo reference range : <=37. The reference range was not used to interpr et this result as josi l/abnormal. [place] 542560-03-27 05:39:00 Test Item Value Reference Range Interpretation Comments Alk Phos (test code = Alk Phos) 75 39-136 [place] 542560-03-27 05:39:00 Test Item Value Reference Range Interpretation Comments Bili Total (test code = Bili Total) 0.6 0.2-1.3 [place] [address]-03-27 05:39:00 Test Item Value Reference Range Interpretation Comments Bili Direct (test code 0.2 See_Comment [Aut omated message] The = Bili Direct) system which generated this result tra nsmitted reference range : <=0.3. The reference r patria was not used to int erpret this result as josi l/abnormal. [place] [address]-03-27 05:39:00 Test Item Value Reference Range Interpretation Comments Bili Indirect (test 0.4 See_Comment [Automa rosendo message] The code = Bili Indirect) system which generated this result tra nsmitted reference range : <=1.0. The reference r patria was not used to int erpret this result as normal/abnormal . [place] [address]-03-27 05:39:00 Test Item Value Reference Range Interpretation Comments Globulin (test code = Globulin) 4.6 2.7-4.2 [place] [address]-03-27 05:39:00 Test Item Value Reference Range Interpretation Comments A/G Ratio (test code = A/G Ratio) 0.7 1 0.7-1.6 [place] [address]-03-27 05:39:00 Test Item Value Reference Range Interpretation Comments WBC (test code = WBC) 7.2 3.7-10.4 [place] [address]-03-27 05:39:00 Test Item Value Reference Range Interpretation Comments RBC (test code = RBC) 2.76 4.20-5.40 [place] [address]-03-27 05:39:00 Test Item Value Reference Range Interpretation Comments Hgb (test code = Hgb) 9.8 12.0-16.0 [place] [address]-03-27 05:39:00 Test Item Value Reference Range Interpretation Comments Hct (test code = Hct) 28.8 36.0-48.0 [facility] CenterYimuqgkHYOOBSQQJO9064-78-48 05:39:00 Test Item Value Reference Range Interpretation Comments MCV (test code = MCV) 104.3 80.0-98.0 [facility] CenterUfzxcdlDLDEFKWOQP1072-91-12 05:39:00 Test Item Value Reference Range Interpretation Comments MCH (test code = MCH) 35.6 pg 27.0-31.0 [facility] CenterYyqbaitZDLHWFDQWA6598-38-32 05:39:00 Test Item Value Reference Range Interpretation Comments MCHC (test code = MCHC) 34.2 32.0-36.0 [facility] CenterFhvjdpjEBXPDYHDCM0479-45-90 05:39:00 Test Item Value Reference Range Interpretation Comments RDW (test code = RDW) 13.4 11.5-14.5 [facility] CenterIiiifkbNZVXMNSUWK8465-71-48 05:39:00 Test Item Value Reference Range Interpretation Comments Platelet (test code = Platelet) 422 024-450 [facility] CenterRyyghysRCQFSAWJWS6340-61-12 05:39:00 Test Item Value Reference Range Interpretation Comments MPV (test code = MPV) 7.3 7.4-10.4 [facility] CenterHicavaxQBPOSJGWMJ6891-60-46 05:39:00 Test Item Value Reference Range Interpretation Comments Segs (test code = Segs) 62.2 45.0-75.0 [facility] CenterZntzaneKQKUEIOXQD1401-64-30 05:39:00 Test Item Value Reference Range Interpretation Comments Lymphocytes (test code = Lymphocytes) 21.5 20.0-40.0 [facility] CenterQrbenndDCRZQLHTGJ9979-86-70 05:39:00 Test Item Value Reference Range Interpretation Comments Monocytes (test code = Monocytes) 11.7 2.0-12.0 [place] 519360-03-27 05:39:00 Test Item Value Reference Range Interpretation Comments Eosinophils (test code = 3.0 See_Comment [A utomated message] The Eosinophils) system which ge nerated this result tra nsmitted reference range : <=4.0. The reference r patria was not used to int erpret this result as normal/abnormal . [place] 519360-03-27 05:39:00 Test Item Value Reference Range Interpretation Comments Basophils (test code = 1.6 See_Comment [Aut omated message] The Basophils) system which ge nerated this result tra nsmitted reference range : <=1.0. The reference r patria was not used to int erpret this result as normal/abnormal . [facility] CenterKlvnikqZOTXFCEIJX7273-42-04 05:39:00 Test Item Value Reference Range Interpretation Comments Neutrophils # (test code = Neutrophils 4.5 1.5-8.1 #) [facility] CenterLkaecabJRGDEZMKDJ1549-58-45 05:39:00 Test Item Value Reference Range Interpretation Comments Lymphocytes # (test code = Lymphocytes 1.5 1.0-5.5 #) [place] 519360-03-27 05:39:00 Test Item Value Reference Range Interpretation Comments Monocytes # (test code 0.8 See_Comment [Aut omated message] The = Monocytes #) system which generated this result tra nsmitted reference range : <=0.8. The reference r patria was not used to int erpret this result as normal/abnormal . [facility] CenterZmerelyBGGQCSOGKA5811-36-98 05:39:00 Test Item Value Reference Range Interpretation Comments Eosinophils # (test code 0.2 See_Comment [A utomated message] The = Eosinophils #) system whic h generated this result tra nsmitted reference range : <=0.5. The reference r patria was not used to int erpret this result as normal/abnormal . [facility] CenterMaygnrbXKCAMYZUPZ3421-45-17 05:39:00 Test Item Value Reference Range Interpretation Comments Basophils # (test code 0.1 See_Comment [Aut omated message] The = Basophils #) system which generated this result tra nsmitted reference range : <=0.2. The reference r patria was not used to int erpret this result as normal/abnormal . [facility] CenterEbiadgvCCYGBPHUWP5351-71-76 05:39:00 Test Item Value Reference Range Interpretation Comments Macrocyte (test code = 1+ *ABN*(02/05/20 Macrocyte) 12:39 AM) [place] 022580-03-27 05:39:00 Test Item Value Reference Range Interpretation Comments Ca Ion WB (test code = Ca Ion WB) 1.22 1.05-1.25 [place] 022580-03-27 05:39:00 Test Item Value Reference Range Interpretation Comments Ca Norm WB (test code = Ca Norm WB) 1.20 1.05-1.25 [facility]2020-03-27 05:39:00 Test Item Value Reference Range Interpretation Comments Glucose Lvl (test code = Glucose Lvl) 79 70-99 [place] 542560-03-27 05:39:00 Test Item Value Reference Range Interpretation Comments BUN (test code = BUN) 22 7-22 [place] 542560-03-27 05:39:00 Test Item Value Reference Range Interpretation Comments Creatinine Lvl (test code = Creatinine 1.28 0.50-1.40 Lvl) [place] 542560-03-27 05:39:00 Test Item Value Reference Range Interpretation Comments Sodium Lvl (test code = Sodium Lvl) 140 135-145 [place] 542560-03-27 05:39:00 Test Item Value Reference Range Interpretation Comments Potassium Lvl (test code = Potassium 3.3 3.5-5.1 Lvl) [place] 542560-03-27 05:39:00 Test Item Value Reference Range Interpretation Comments Chloride Lvl (test code = Chloride Lvl) 106 95-109 [place] 542560-03-27 05:39:00 Test Item Value Reference Range Interpretation Comments CO2 (test code = CO2) 24 24-32 [place] 542560-03-27 05:39:00 Test Item Value Reference Range Interpretation Comments Calcium Lvl (test code = Calcium Lvl) 9.3 8.5-10.5 [place] 542560-03-27 05:39:00 Test Item Value Reference Range Interpretation Comments AGAP (test code = AGAP) 13.3 10.0-20.0 [place] 542560-03-27 05:39:00 Test Item Value Reference Range Interpretation Comments eGFR (test code = eGFR) 40 [place] 542560-03-27 05:39:00 Test Item Value Reference Range Interpretation Comments Magnesium Lvl (test code = Magnesium 2.2 1.8-2.4 Lvl) [place] 542560-03-27 05:39:00 Test Item Value Reference Range Interpretation Comments Phosphorus (test code = Phosphorus) 2.9 2.5-4.5 [place] [id number] 05:39:00 Test Item Value Reference Range Interpretation Comments Total Protein (test code = Total 7.7 6.4-8.4 Protein) [facility] [employer] [id number] 05:39:00 Test Item Value Reference Range Interpretation Comments Albumin Lvl (test code = Albumin Lvl) 3.1 3.5-5.0 [facility] [employer] [id number] 05:39:00 Test Item Value Reference Range Interpretation Comments ALT (test code = ALT) 19 See_Comment [Auto mated message] The system which ge nerated this result transmit rosendo reference range : <=65. The reference range was not used to interpr et this result as josi l/abnormal. [facility] [employer] [id number] 05:39:00 Test Item Value Reference Range Interpretation Comments AST (test code = AST) 26 See_Comment [Auto mated message] The system which ge nerated this result transmit rosendo reference range : <=37. The reference range was not used to interpr et this result as josi l/abnormal. [facility] [employer] [id number] 05:39:00 Test Item Value Reference Range Interpretation Comments Alk Phos (test code = Alk Phos) 75 39-136 [facility] [employer] [id number] 05:39:00 Test Item Value Reference Range Interpretation Comments Bili Total (test code = Bili Total) 0.6 0.2-1.3 [facility] [employer] [id number] 05:39:00 Test Item Value Reference Range Interpretation Comments Bili Direct (test code 0.2 See_Comment [Aut omated message] The = Bili Direct) system which generated this result tra nsmitted reference range : <=0.3. The reference r patria was not used to int erpret this result as josi l/abnormal. [facility] [employer] [id number] 05:39:00 Test Item Value Reference Range Interpretation Comments Bili Indirect (test 0.4 See_Comment [Automa rosendo message] The code = Bili Indirect) system which generated this result tra nsmitted reference range : <=1.0. The reference r patria was not used to int erpret this result as normal/abnormal . [facility] [employer] [id number] 05:39:00 Test Item Value Reference Range Interpretation Comments Globulin (test code = Globulin) 4.6 2.7-4.2 [facility]2020-03-27 05:39:00 Test Item Value Reference Range Interpretation Comments A/G Ratio (test code = A/G Ratio) 0.7 1 0.7-1.6 [facility]RymdbdwQYFBUFUPYG9780-94-42 05:39:00 Test Item Value Reference Range Interpretation Comments WBC (test code = WBC) 7.2 3.7-10.4 [facility] ServicesRkguccxKNNWCPMXZX8737-90-03 05:39:00 Test Item Value Reference Range Interpretation Comments RBC (test code = RBC) 2.76 4.20-5.40 [facility] ServicesTkekzruQYFUGKSSVA2284-52-36 05:39:00 Test Item Value Reference Range Interpretation Comments Hgb (test code = Hgb) 9.8 12.0-16.0 [facility]XfejllnAJASFSDPNO4027-59-22 05:39:00 Test Item Value Reference Range Interpretation Comments Hct (test code = Hct) 28.8 36.0-48.0 [facility] CenterJshxwqmZWKFSTGZAL7173-44-09 05:39:00 Test Item Value Reference Range Interpretation Comments MCV (test code = MCV) 104.3 80.0-98.0 [facility] ServicesAkjuklsBJMCSVDFKK1886-64-22 05:39:00 Test Item Value Reference Range Interpretation Comments MCH (test code = MCH) 35.6 pg 27.0-31.0 [facility]unnnqvEXAZCDZMZJ0944-37-96 05:39:00 Test Item Value Reference Range Interpretation Comments MCHC (test code = MCHC) 34.2 32.0-36.0 [facility] ServicesGwiwirpOPXISJYHRV0872-03-10 05:39:00 Test Item Value Reference Range Interpretation Comments RDW (test code = RDW) 13.4 11.5-14.5 [facility] CenterVuotqpgWDRKXTAXQA1489-35-53 05:39:00 Test Item Value Reference Range Interpretation Comments Platelet (test code = Platelet) 426 651-450 [facility] ServicesVxdfrwtSOEEXPMOCA2934-66-10 05:39:00 Test Item Value Reference Range Interpretation Comments MPV (test code = MPV) 7.3 7.4-10.4 [facility] CenterVpchormPPNYHGSFSW7993-04-81 05:39:00 Test Item Value Reference Range Interpretation Comments Segs (test code = Segs) 62.2 45.0-75.0 [place] 519360-03-27 05:39:00 Test Item Value Reference Range Interpretation Comments Lymphocytes (test code = Lymphocytes) 21.5 20.0-40.0 [place] 519360-03-27 05:39:00 Test Item Value Reference Range Interpretation Comments Monocytes (test code = Monocytes) 11.7 2.0-12.0 [place] 519360-03-27 05:39:00 Test Item Value Reference Range Interpretation Comments Eosinophils (test code = 3.0 See_Comment [A utomated message] The Eosinophils) system which ge nerated this result tra nsmitted reference range : <=4.0. The reference r patria was not used to int erpret this result as normal/abnormal . [place] 519360-03-27 05:39:00 Test Item Value Reference Range Interpretation Comments Basophils (test code = 1.6 See_Comment [Aut omated message] The Basophils) system which ge nerated this result tra nsmitted reference range : <=1.0. The reference r patria was not used to int erpret this result as normal/abnormal . [facility] [id number] 05:39:00 Test Item Value Reference Range Interpretation Comments Neutrophils # (test code = Neutrophils 4.5 1.5-8.1 #) [facility] CenterYzrtibyNMVHRVNLGB5194-10-70 05:39:00 Test Item Value Reference Range Interpretation Comments Lymphocytes # (test code = Lymphocytes 1.5 1.0-5.5 #) [facility] CenterTrkzcqzMDRZGQTHKV6229-06-93 05:39:00 Test Item Value Reference Range Interpretation Comments Monocytes # (test code 0.8 See_Comment [Aut omated message] The = Monocytes #) system which generated this result tra nsmitted reference range : <=0.8. The reference r patria was not used to int erpret this result as normal/abnormal . [facility] CenterRwnhbsfEIDNEVVCYU4546-90-01 05:39:00 Test Item Value Reference Range Interpretation Comments Eosinophils # (test code 0.2 See_Comment [A utomated message] The = Eosinophils #) system whic h generated this result tra nsmitted reference range : <=0.5. The reference r patria was not used to int erpret this result as normal/abnormal . [facility] CenterDyuhzjaNJFFJOWXJV9475-57-40 05:39:00 Test Item Value Reference Range Interpretation Comments Basophils # (test code 0.1 See_Comment [Aut omated message] The = Basophils #) system which generated this result tra nsmitted reference range : <=0.2. The reference r patria was not used to int erpret this result as normal/abnormal . [facility] CenterVfzsalhIGEYIFAOOO8568-70-77 05:39:00 Test Item Value Reference Range Interpretation Comments Macrocyte (test code = 1+ *ABN*(02/05/20 Macrocyte) 12:39 AM) [place] 022580-03-27 05:39:00 Test Item Value Reference Range Interpretation Comments Ca Ion WB (test code = Ca Ion WB) 1.22 1.05-1.25 [facility]2020-03-27 05:39:00 Test Item Value Reference Range Interpretation Comments Ca Norm WB (test code = Ca Norm WB) 1.20 1.05-1.25 [facility] [id number] 05:39:00 Test Item Value Reference Range Interpretation Comments Glucose Lvl (test code = Glucose Lvl) 79 70-99 [facility]2020-03-27 05:39:00 Test Item Value Reference Range Interpretation Comments BUN (test code = BUN) 22 7-22 [facility]2020-03-27 05:39:00 Test Item Value Reference Range Interpretation Comments Creatinine Lvl (test code = Creatinine 1.28 0.50-1.40 Lvl) [facility]2020-03-27 05:39:00 Test Item Value Reference Range Interpretation Comments Sodium Lvl (test code = Sodium Lvl) 140 135-145 [place] 542560-03-27 05:39:00 Test Item Value Reference Range Interpretation Comments Potassium Lvl (test code = Potassium 3.3 3.5-5.1 Lvl) [facility]2020-03-27 05:39:00 Test Item Value Reference Range Interpretation Comments Chloride Lvl (test code = Chloride Lvl) 106 95-109 [facility]2020-03-27 05:39:00 Test Item Value Reference Range Interpretation Comments CO2 (test code = CO2) 24 24-32 [place] 542560-03-27 05:39:00 Test Item Value Reference Range Interpretation Comments Calcium Lvl (test code = Calcium Lvl) 9.3 8.5-10.5 [facility] [employer] [id number] 05:39:00 Test Item Value Reference Range Interpretation Comments AGAP (test code = AGAP) 13.3 10.0-20.0 [facility] [id number] 05:39:00 Test Item Value Reference Range Interpretation Comments eGFR (test code = eGFR) 40 [facility] [id number] 05:39:00 Test Item Value Reference Range Interpretation Comments Magnesium Lvl (test code = Magnesium 2.2 1.8-2.4 Lvl) [facility] [id number] 05:39:00 Test Item Value Reference Range Interpretation Comments Phosphorus (test code = Phosphorus) 2.9 2.5-4.5 [facility] [id number] 05:39:00 Test Item Value Reference Range Interpretation Comments Total Protein (test code = Total 7.7 6.4-8.4 Protein) [facility] [id number] 05:39:00 Test Item Value Reference Range Interpretation Comments Albumin Lvl (test code = Albumin Lvl) 3.1 3.5-5.0 [facility] [employer] [id number] 05:39:00 Test Item Value Reference Range Interpretation Comments ALT (test code = ALT) 19 See_Comment [Auto mated message] The system which ge nerated this result transmit rosendo reference range : <=65. The reference range was not used to interpr et this result as josi l/abnormal. [facility] [employer] [id number] 05:39:00 Test Item Value Reference Range Interpretation Comments AST (test code = AST) 26 See_Comment [Auto mated message] The system which ge nerated this result transmit rosendo reference range : <=37. The reference range was not used to interpr et this result as josi l/abnormal. [facility] [employer] [id number] 05:39:00 Test Item Value Reference Range Interpretation Comments Alk Phos (test code = Alk Phos) 75 39-136 [facility] [id number] 05:39:00 Test Item Value Reference Range Interpretation Comments Bili Total (test code = Bili Total) 0.6 0.2-1.3 [facility] [id number] 05:39:00 Test Item Value Reference Range Interpretation Comments Bili Direct (test code 0.2 See_Comment [Aut omated message] The = Bili Direct) system which generated this result tra nsmitted reference range : <=0.3. The reference r patria was not used to int erpret this result as josi l/abnormal. [facility] [id number] 05:39:00 Test Item Value Reference Range Interpretation Comments Bili Indirect (test 0.4 See_Comment [Automa rosendo message] The code = Bili Indirect) system which generated this result tra nsmitted reference range : <=1.0. The reference r patria was not used to int erpret this result as normal/abnormal . [facility] [id number] 05:39:00 Test Item Value Reference Range Interpretation Comments Globulin (test code = Globulin) 4.6 2.7-4.2 [facility] [id number] 05:39:00 Test Item Value Reference Range Interpretation Comments A/G Ratio (test code = A/G Ratio) 0.7 1 0.7-1.6 [facility] HospitalVftbbwoCHNWUOBHHD4511-25-79 05:39:00 Test Item Value Reference Range Interpretation Comments WBC (test code = WBC) 7.2 3.7-10.4 [facility] CenterGbeybpkPBLCAZXTAW2685-46-12 05:39:00 Test Item Value Reference Range Interpretation Comments RBC (test code = RBC) 2.76 4.20-5.40 [facility] HospitalNrqffvlUXTRWHDXIU9115-37-38 05:39:00 Test Item Value Reference Range Interpretation Comments Hgb (test code = Hgb) 9.8 12.0-16.0 [facility] HospitalEyjzamqTSVOIENVTY4928-58-33 05:39:00 Test Item Value Reference Range Interpretation Comments Hct (test code = Hct) 28.8 36.0-48.0 [place] [address]-03-27 05:39:00 Test Item Value Reference Range Interpretation Comments MCV (test code = MCV) 104.3 80.0-98.0 [facility] HospitalHjiklgmRRKUENJZGB4143-44-58 05:39:00 Test Item Value Reference Range Interpretation Comments MCH (test code = MCH) 35.6 pg 27.0-31.0 [place] 519360-03-27 05:39:00 Test Item Value Reference Range Interpretation Comments MCHC (test code = MCHC) 34.2 32.0-36.0 [place] 519360-03-27 05:39:00 Test Item Value Reference Range Interpretation Comments RDW (test code = RDW) 13.4 11.5-14.5 [place] 519360-03-27 05:39:00 Test Item Value Reference Range Interpretation Comments Platelet (test code = Platelet) 426 968-450 [place] 519360-03-27 05:39:00 Test Item Value Reference Range Interpretation Comments MPV (test code = MPV) 7.3 7.4-10.4 [place] [address]-03-27 05:39:00 Test Item Value Reference Range Interpretation Comments Segs (test code = Segs) 62.2 45.0-75.0 [place] [address]-03-27 05:39:00 Test Item Value Reference Range Interpretation Comments Lymphocytes (test code = Lymphocytes) 21.5 20.0-40.0 [place] 519360-03-27 05:39:00 Test Item Value Reference Range Interpretation Comments Monocytes (test code = Monocytes) 11.7 2.0-12.0 [place] [address]-03-27 05:39:00 Test Item Value Reference Range Interpretation Comments Eosinophils (test code = 3.0 See_Comment [A utomated message] The Eosinophils) system which ge nerated this result tra nsmitted reference range : <=4.0. The reference r patria was not used to int erpret this result as normal/abnormal . [place] 519360-03-27 05:39:00 Test Item Value Reference Range Interpretation Comments Basophils (test code = 1.6 See_Comment [Aut omated message] The Basophils) system which ge nerated this result tra nsmitted reference range : <=1.0. The reference r patria was not used to int erpret this result as normal/abnormal . [place] 519360-03-27 05:39:00 Test Item Value Reference Range Interpretation Comments Neutrophils # (test code = Neutrophils 4.5 1.5-8.1 #) [place] 519360-03-27 05:39:00 Test Item Value Reference Range Interpretation Comments Lymphocytes # (test code = Lymphocytes 1.5 1.0-5.5 #) [facility]YjnecncFEDBYSIKQP8517-98-63 05:39:00 Test Item Value Reference Range Interpretation Comments Monocytes # (test code 0.8 See_Comment [Aut omated message] The = Monocytes #) system which generated this result tra nsmitted reference range : <=0.8. The reference r patria was not used to int erpret this result as normal/abnormal . [facility] CenterTgapmhiMQEPFNGVAX0579-23-57 05:39:00 Test Item Value Reference Range Interpretation Comments Eosinophils # (test code 0.2 See_Comment [A utomated message] The = Eosinophils #) system whic h generated this result tra nsmitted reference range : <=0.5. The reference r patria was not used to int erpret this result as normal/abnormal . [facility] CenterNezorbxMFKQZVNFYY1640-02-59 05:39:00 Test Item Value Reference Range Interpretation Comments Basophils # (test code 0.1 See_Comment [Aut omated message] The = Basophils #) system which generated this result tra nsmitted reference range : <=0.2. The reference r patria was not used to int erpret this result as normal/abnormal . [facility] CenterVifccyfPWFBIDNEIZ0735-93-07 05:39:00 Test Item Value Reference Range Interpretation Comments Macrocyte (test code = 1+ *ABN*(02/05/20 Macrocyte) 12:39 AM) [facility]2020-03-27 05:39:00 Test Item Value Reference Range Interpretation Comments Ca Ion WB (test code = Ca Ion WB) 1.22 1.05-1.25 [facility] [id number] 05:39:00 Test Item Value Reference Range Interpretation Comments Ca Norm WB (test code = Ca Norm WB) 1.20 1.05-1.25 [facility] [id number] 05:39:00 Test Item Value Reference Range Interpretation Comments Glucose Lvl (test code = Glucose Lvl) 79 70-99 [facility] [id number] 05:39:00 Test Item Value Reference Range Interpretation Comments BUN (test code = BUN) 22 7-22 [facility] [id number] 05:39:00 Test Item Value Reference Range Interpretation Comments Creatinine Lvl (test code = Creatinine 1.28 0.50-1.40 Lvl) [place] 542560-03-27 05:39:00 Test Item Value Reference Range Interpretation Comments Sodium Lvl (test code = Sodium Lvl) 140 135-145 [place] 542560-03-27 05:39:00 Test Item Value Reference Range Interpretation Comments Potassium Lvl (test code = Potassium 3.3 3.5-5.1 Lvl) [facility]2020-03-27 05:39:00 Test Item Value Reference Range Interpretation Comments Chloride Lvl (test code = Chloride Lvl) 106 95-109 [place] 542560-03-27 05:39:00 Test Item Value Reference Range Interpretation Comments CO2 (test code = CO2) 24 24-32 [place] 542560-03-27 05:39:00 Test Item Value Reference Range Interpretation Comments Calcium Lvl (test code = Calcium Lvl) 9.3 8.5-10.5 [place] 542560-03-27 05:39:00 Test Item Value Reference Range Interpretation Comments AGAP (test code = AGAP) 13.3 10.0-20.0 [place] 542560-03-27 05:39:00 Test Item Value Reference Range Interpretation Comments eGFR (test code = eGFR) 40 [facility]2020-03-27 05:39:00 Test Item Value Reference Range Interpretation Comments Magnesium Lvl (test code = Magnesium 2.2 1.8-2.4 Lvl) [place] 542560-03-27 05:39:00 Test Item Value Reference Range Interpretation Comments Phosphorus (test code = Phosphorus) 2.9 2.5-4.5 [place] 542560-03-27 05:39:00 Test Item Value Reference Range Interpretation Comments Total Protein (test code = Total 7.7 6.4-8.4 Protein) [facility]2020-03-27 05:39:00 Test Item Value Reference Range Interpretation Comments Albumin Lvl (test code = Albumin Lvl) 3.1 3.5-5.0 [place] 542560-03-27 05:39:00 Test Item Value Reference Range Interpretation Comments ALT (test code = ALT) 19 See_Comment [Auto mated message] The system which ge nerated this result transmit rosendo reference range : <=65. The reference range was not used to interpr et this result as josi l/abnormal. [facility] [employer] [id number] 05:39:00 Test Item Value Reference Range Interpretation Comments AST (test code = AST) 26 See_Comment [Auto mated message] The system which ge nerated this result transmit rosendo reference range : <=37. The reference range was not used to interpr et this result as josi l/abnormal. [facility] [employer] [id number] 05:39:00 Test Item Value Reference Range Interpretation Comments Alk Phos (test code = Alk Phos) 75 39-136 [facility] [employer] [id number] 05:39:00 Test Item Value Reference Range Interpretation Comments Bili Total (test code = Bili Total) 0.6 0.2-1.3 [facility] [id number] 05:39:00 Test Item Value Reference Range Interpretation Comments Bili Direct (test code 0.2 See_Comment [Aut omated message] The = Bili Direct) system which generated this result tra nsmitted reference range : <=0.3. The reference r patria was not used to int erpret this result as josi l/abnormal. [facility] [employer] [id number] 05:39:00 Test Item Value Reference Range Interpretation Comments Bili Indirect (test 0.4 See_Comment [Automa rosendo message] The code = Bili Indirect) system which generated this result tra nsmitted reference range : <=1.0. The reference r patria was not used to int erpret this result as normal/abnormal . [facility] [employer] [id number] 05:39:00 Test Item Value Reference Range Interpretation Comments Globulin (test code = Globulin) 4.6 2.7-4.2 [facility] [id number] 05:39:00 Test Item Value Reference Range Interpretation Comments A/G Ratio (test code = A/G Ratio) 0.7 1 0.7-1.6 [facility] HospitalWlhhkuoHRUBTKPUKY6843-35-28 05:39:00 Test Item Value Reference Range Interpretation Comments WBC (test code = WBC) 7.2 3.7-10.4 [place] 519360-03-27 05:39:00 Test Item Value Reference Range Interpretation Comments RBC (test code = RBC) 2.76 4.20-5.40 [place] 519360-03-27 05:39:00 Test Item Value Reference Range Interpretation Comments Hgb (test code = Hgb) 9.8 12.0-16.0 [place] [address]-03-27 05:39:00 Test Item Value Reference Range Interpretation Comments Hct (test code = Hct) 28.8 36.0-48.0 [place] [address]-03-27 05:39:00 Test Item Value Reference Range Interpretation Comments MCV (test code = MCV) 104.3 80.0-98.0 [place] [address]-03-27 05:39:00 Test Item Value Reference Range Interpretation Comments MCH (test code = MCH) 35.6 pg 27.0-31.0 [facility] CenterWnsukuzAVMLFHSSZU3066-43-87 05:39:00 Test Item Value Reference Range Interpretation Comments MCHC (test code = MCHC) 34.2 32.0-36.0 [place] 519360-03-27 05:39:00 Test Item Value Reference Range Interpretation Comments RDW (test code = RDW) 13.4 11.5-14.5 [facility] CenterSuppjfjEUWCYRFBBP5102-37-29 05:39:00 Test Item Value Reference Range Interpretation Comments Platelet (test code = Platelet) 426 701-450 [facility] CenterTxzaayqKFFDOFIAEI2978-40-88 05:39:00 Test Item Value Reference Range Interpretation Comments MPV (test code = MPV) 7.3 7.4-10.4 [place] [address]-03-27 05:39:00 Test Item Value Reference Range Interpretation Comments Segs (test code = Segs) 62.2 45.0-75.0 [place] [address]-03-27 05:39:00 Test Item Value Reference Range Interpretation Comments Lymphocytes (test code = Lymphocytes) 21.5 20.0-40.0 [place] 519360-03-27 05:39:00 Test Item Value Reference Range Interpretation Comments Monocytes (test code = Monocytes) 11.7 2.0-12.0 [place] 519360-03-27 05:39:00 Test Item Value Reference Range Interpretation Comments Eosinophils (test code = 3.0 See_Comment [A utomated message] The Eosinophils) system which ge nerated this result tra nsmitted reference range : <=4.0. The reference r patria was not used to int erpret this result as normal/abnormal . [facility] CenterRzofmhmTSUPRKWZHI9458-14-32 05:39:00 Test Item Value Reference Range Interpretation Comments Basophils (test code = 1.6 See_Comment [Aut omated message] The Basophils) system which ge nerated this result tra nsmitted reference range : <=1.0. The reference r patria was not used to int erpret this result as normal/abnormal . [facility] CenterMbhaymwWZXTMBQIAL3097-79-25 05:39:00 Test Item Value Reference Range Interpretation Comments Neutrophils # (test code = Neutrophils 4.5 1.5-8.1 #) [facility] CenterGwbbvxlAREBALWCKL4898-82-87 05:39:00 Test Item Value Reference Range Interpretation Comments Lymphocytes # (test code = Lymphocytes 1.5 1.0-5.5 #) [facility] CenterQcrbwsiWNKDTNQESS5567-57-99 05:39:00 Test Item Value Reference Range Interpretation Comments Monocytes # (test code 0.8 See_Comment [Aut omated message] The = Monocytes #) system which generated this result tra nsmitted reference range : <=0.8. The reference r patria was not used to int erpret this result as normal/abnormal . [facility] CenterObplzapIKQTBKTPFU1198-13-47 05:39:00 Test Item Value Reference Range Interpretation Comments Eosinophils # (test code 0.2 See_Comment [A utomated message] The = Eosinophils #) system whic h generated this result tra nsmitted reference range : <=0.5. The reference r patria was not used to int erpret this result as normal/abnormal . [facility] CenterTslwnwfMWUUBKTBJK1443-94-62 05:39:00 Test Item Value Reference Range Interpretation Comments Basophils # (test code 0.1 See_Comment [Aut omated message] The = Basophils #) system which generated this result tra nsmitted reference range : <=0.2. The reference r patria was not used to int erpret this result as normal/abnormal . [facility] [id number] 05:39:00 Test Item Value Reference Range Interpretation Comments Macrocyte (test code = 1+ *ABN*(02/05/20 Macrocyte) 12:39 AM) [id number] 05:39:00 Test Item Value Reference Range Interpretation Comments Ca Ion WB (test code = Ca Ion WB) 1.22 1.05-1.25 [facility] [id number] 05:39:00 Test Item Value Reference Range Interpretation Comments Ca Norm WB (test code = Ca Norm WB) 1.20 1.05-1.25 [facility]2020-03-27 05:39:00 Test Item Value Reference Range Interpretation Comments Glucose Lvl (test code = Glucose Lvl) 79 70-99 [facility]2020-03-27 05:39:00 Test Item Value Reference Range Interpretation Comments BUN (test code = BUN) 22 7-22 [facility]2020-03-27 05:39:00 Test Item Value Reference Range Interpretation Comments Creatinine Lvl (test code = Creatinine 1.28 0.50-1.40 Lvl) [facility]2020-03-27 05:39:00 Test Item Value Reference Range Interpretation Comments Sodium Lvl (test code = Sodium Lvl) 140 135-145 [facility]2020-03-27 05:39:00 Test Item Value Reference Range Interpretation Comments Potassium Lvl (test code = Potassium 3.3 3.5-5.1 Lvl) [facility]2020-03-27 05:39:00 Test Item Value Reference Range Interpretation Comments Chloride Lvl (test code = Chloride Lvl) 106 95-109 [facility]2020-03-27 05:39:00 Test Item Value Reference Range Interpretation Comments CO2 (test code = CO2) 24 24-32 [facility]2020-03-27 05:39:00 Test Item Value Reference Range Interpretation Comments Calcium Lvl (test code = Calcium Lvl) 9.3 8.5-10.5 [facility]2020-03-27 05:39:00 Test Item Value Reference Range Interpretation Comments AGAP (test code = AGAP) 13.3 10.0-20.0 [place] 542560-03-27 05:39:00 Test Item Value Reference Range Interpretation Comments eGFR (test code = eGFR) 40 [facility] ResourcesSaperionALYSSA [facility] [id number] 05:39:00 Test Item Value Reference Range Interpretation Comments Magnesium Lvl (test code = Magnesium 2.2 1.8-2.4 Lvl) [place] [address]-03-27 05:39:00 Test Item Value Reference Range Interpretation Comments Phosphorus (test code = Phosphorus) 2.9 2.5-4.5 [facility] ResourcesSaperionALYSSA [place] [id number] 05:39:00 Test Item Value Reference Range Interpretation Comments Total Protein (test code = Total 7.7 6.4-8.4 Protein) [address]03-27 05:39:00 Test Item Value Reference Range Interpretation Comments Albumin Lvl (test code = Albumin Lvl) 3.1 3.5-5.0 [place] [address]-03-27 05:39:00 Test Item Value Reference Range Interpretation Comments ALT (test code = ALT) 19 See_Comment [Auto mated message] The system which ge nerated this result transmit rosendo reference range : <=65. The reference range was not used to interpr et this result as josi l/abnormal. [facility] ResourcesAboutUs.[facility] [id number] 05:39:00 Test Item Value Reference Range Interpretation Comments AST (test code = AST) 26 See_Comment [Auto mated message] The system which ge nerated this result transmit rosendo reference range : <=37. The reference range was not used to interpr et this result as josi l/abnormal. [facility] [id number] 05:39:00 Test Item Value Reference Range Interpretation Comments Alk Phos (test code = Alk Phos) 75 39-136 [facility] [id number] 05:39:00 Test Item Value Reference Range Interpretation Comments Bili Total (test code = Bili Total) 0.6 0.2-1.3 [facility] [id number] 05:39:00 Test Item Value Reference Range Interpretation Comments Bili Direct (test code 0.2 See_Comment [Aut omated message] The = Bili Direct) system which generated this result tra nsmitted reference range : <=0.3. The reference r patria was not used to int erpret this result as josi l/abnormal. [facility] ResourcesLifeBrite [facility] [id number] 05:39:00 Test Item Value Reference Range Interpretation Comments Bili Indirect (test 0.4 See_Comment [Automa rosendo message] The code = Bili Indirect) system which generated this result tra nsmitted reference range : <=1.0. The reference r patria was not used to int erpret this result as normal/abnormal . [facility] [id number] 05:39:00 Test Item Value Reference Range Interpretation Comments Globulin (test code = Globulin) 4.6 2.7-4.2 [facility] [id number] 05:39:00 Test Item Value Reference Range Interpretation Comments A/G Ratio (test code = A/G Ratio) 0.7 1 0.7-1.6 [place]360-03-27 05:39:00 Test Item Value Reference Range Interpretation Comments WBC (test code = WBC) 7.2 3.7-10.4 [facility]CtawkwdGTGWNWACOA3913-28-46 05:39:00 Test Item Value Reference Range Interpretation Comments RBC (test code = RBC) 2.76 4.20-5.40 [facility] CenterArwwmtrQFZEBAWRDN7233-79-47 05:39:00 Test Item Value Reference Range Interpretation Comments Hgb (test code = Hgb) 9.8 12.0-16.0 [facility] CenterIwkdrtrALGPZRREPI2841-42-44 05:39:00 Test Item Value Reference Range Interpretation Comments Hct (test code = Hct) 28.8 36.0-48.0 [facility] CenterJfmyupyBDLBOTRYEH2036-27-62 05:39:00 Test Item Value Reference Range Interpretation Comments MCV (test code = MCV) 104.3 80.0-98.0 [place] 519360-03-27 05:39:00 Test Item Value Reference Range Interpretation Comments MCH (test code = MCH) 35.6 pg 27.0-31.0 [facility] CenterTyxzjmhGEQUMPEOOT0584-89-92 05:39:00 Test Item Value Reference Range Interpretation Comments MCHC (test code = MCHC) 34.2 32.0-36.0 [place] 519360-03-27 05:39:00 Test Item Value Reference Range Interpretation Comments RDW (test code = RDW) 13.4 11.5-14.5 [place] 519360-03-27 05:39:00 Test Item Value Reference Range Interpretation Comments Platelet (test code = Platelet) 421 232-920 [facility] CenterLfxxanaVETOVXNFYY3136-40-71 05:39:00 Test Item Value Reference Range Interpretation Comments MPV (test code = MPV) 7.3 7.4-10.4 [place] 519360-03-27 05:39:00 Test Item Value Reference Range Interpretation Comments Segs (test code = Segs) 62.2 45.0-75.0 [place] 519360-03-27 05:39:00 Test Item Value Reference Range Interpretation Comments Lymphocytes (test code = Lymphocytes) 21.5 20.0-40.0 [place] 519360-03-27 05:39:00 Test Item Value Reference Range Interpretation Comments Monocytes (test code = Monocytes) 11.7 2.0-12.0 [facility] CenterTkhmbcyPXVNARSMYB3451-83-41 05:39:00 Test Item Value Reference Range Interpretation Comments Eosinophils (test code = 3.0 See_Comment [A utomated message] The Eosinophils) system which ge nerated this result tra nsmitted reference range : <=4.0. The reference r patria was not used to int erpret this result as normal/abnormal . [facility] CenterPbbdqmlJQPPFGREBJ5753-05-63 05:39:00 Test Item Value Reference Range Interpretation Comments Basophils (test code = 1.6 See_Comment [Aut omated message] The Basophils) system which ge nerated this result tra nsmitted reference range : <=1.0. The reference r patria was not used to int erpret this result as normal/abnormal . [facility] CenterKhvdtbcPPJRPNMZQY6688-51-55 05:39:00 Test Item Value Reference Range Interpretation Comments Neutrophils # (test code = Neutrophils 4.5 1.5-8.1 #) [place] 519360-03-27 05:39:00 Test Item Value Reference Range Interpretation Comments Lymphocytes # (test code = Lymphocytes 1.5 1.0-5.5 #) [place] 519360-03-27 05:39:00 Test Item Value Reference Range Interpretation Comments Monocytes # (test code 0.8 See_Comment [Aut omated message] The = Monocytes #) system which generated this result tra nsmitted reference range : <=0.8. The reference r patria was not used to int erpret this result as normal/abnormal . [facility] CenterHtlwiibOREGWNAAHD5728-36-62 05:39:00 Test Item Value Reference Range Interpretation Comments Eosinophils # (test code 0.2 See_Comment [A utomated message] The = Eosinophils #) system whic h generated this result tra nsmitted reference range : <=0.5. The reference r patria was not used to int erpret this result as normal/abnormal . [facility] CenterBtgecwcTCZMDWRNTR4612-17-57 05:39:00 Test Item Value Reference Range Interpretation Comments Basophils # (test code 0.1 See_Comment [Aut omated message] The = Basophils #) system which generated this result tra nsmitted reference range : <=0.2. The reference r patria was not used to int erpret this result as normal/abnormal . [facility] CenterXlnsffcQCXYBSKMPV2917-39-47 05:39:00 Test Item Value Reference Range Interpretation Comments Macrocyte (test code = 1+ *ABN*(02/05/20 Macrocyte) 12:39 AM) [facility]2020-03-27 05:39:00 Test Item Value Reference Range Interpretation Comments Ca Ion WB (test code = Ca Ion WB) 1.22 1.05-1.25 [facility]2020-03-27 05:39:00 Test Item Value Reference Range Interpretation Comments Ca Norm WB (test code = Ca Norm WB) 1.20 1.05-1.25 [facility] [id number] 05:39:00 Test Item Value Reference Range Interpretation Comments Glucose Lvl (test code = Glucose Lvl) 79 70-99 [facility] [id number] 05:39:00 Test Item Value Reference Range Interpretation Comments BUN (test code = BUN) 22 7-22 [facility] [id number] 05:39:00 Test Item Value Reference Range Interpretation Comments Creatinine Lvl (test code = Creatinine 1.28 0.50-1.40 Lvl) [facility] [id number] 05:39:00 Test Item Value Reference Range Interpretation Comments Sodium Lvl (test code = Sodium Lvl) 140 135-145 [facility] [id number] 05:39:00 Test Item Value Reference Range Interpretation Comments Potassium Lvl (test code = Potassium 3.3 3.5-5.1 Lvl) [place] [address]-03-27 05:39:00 Test Item Value Reference Range Interpretation Comments Chloride Lvl (test code = Chloride Lvl) 106 95-109 [place] [address]-03-27 05:39:00 Test Item Value Reference Range Interpretation Comments CO2 (test code = CO2) 24 24-32 [place] [address]-03-27 05:39:00 Test Item Value Reference Range Interpretation Comments Calcium Lvl (test code = Calcium Lvl) 9.3 8.5-10.5 [place] [address]-03-27 05:39:00 Test Item Value Reference Range Interpretation Comments AGAP (test code = AGAP) 13.3 10.0-20.0 [place] [address]-03-27 05:39:00 Test Item Value Reference Range Interpretation Comments eGFR (test code = eGFR) 40 [place] [address]-03-27 05:39:00 Test Item Value Reference Range Interpretation Comments Magnesium Lvl (test code = Magnesium 2.2 1.8-2.4 Lvl) [place] 542560-03-27 05:39:00 Test Item Value Reference Range Interpretation Comments Phosphorus (test code = Phosphorus) 2.9 2.5-4.5 [place] 542560-03-27 05:39:00 Test Item Value Reference Range Interpretation Comments Total Protein (test code = Total 7.7 6.4-8.4 Protein) [place] [address]-03-27 05:39:00 Test Item Value Reference Range Interpretation Comments Albumin Lvl (test code = Albumin Lvl) 3.1 3.5-5.0 [place] [address]-03-27 05:39:00 Test Item Value Reference Range Interpretation Comments ALT (test code = ALT) 19 See_Comment [Auto mated message] The system which ge nerated this result transmit rosendo reference range : <=65. The reference range was not used to interpr et this result as josi l/abnormal. [facility] [id number] 05:39:00 Test Item Value Reference Range Interpretation Comments AST (test code = AST) 26 See_Comment [Auto mated message] The system which ge nerated this result transmit rosendo reference range : <=37. The reference range was not used to interpr et this result as josi l/abnormal. [place] [address]-03-27 05:39:00 Test Item Value Reference Range Interpretation Comments Alk Phos (test code = Alk Phos) 75 39-136 [place] [address]-03-27 05:39:00 Test Item Value Reference Range Interpretation Comments Bili Total (test code = Bili Total) 0.6 0.2-1.3 [place] [address]-03-27 05:39:00 Test Item Value Reference Range Interpretation Comments Bili Direct (test code 0.2 See_Comment [Aut omated message] The = Bili Direct) system which generated this result tra nsmitted reference range : <=0.3. The reference r patria was not used to int erpret this result as josi l/abnormal. [place] [address]-03-27 05:39:00 Test Item Value Reference Range Interpretation Comments Bili Indirect (test 0.4 See_Comment [Automa rosendo message] The code = Bili Indirect) system which generated this result tra nsmitted reference range : <=1.0. The reference r patria was not used to int erpret this result as normal/abnormal . [place] 542560-03-27 05:39:00 Test Item Value Reference Range Interpretation Comments Globulin (test code = Globulin) 4.6 2.7-4.2 [place] [address]-03-27 05:39:00 Test Item Value Reference Range Interpretation Comments A/G Ratio (test code = A/G Ratio) 0.7 1 0.7-1.6 [place] [address]-03-27 05:39:00 Test Item Value Reference Range Interpretation Comments WBC (test code = WBC) 7.2 3.7-10.4 [place] [address]-03-27 05:39:00 Test Item Value Reference Range Interpretation Comments RBC (test code = RBC) 2.76 4.20-5.40 [place] [address]-03-27 05:39:00 Test Item Value Reference Range Interpretation Comments Hgb (test code = Hgb) 9.8 12.0-16.0 [place] [address]-03-27 05:39:00 Test Item Value Reference Range Interpretation Comments Hct (test code = Hct) 28.8 36.0-48.0 [place] 519360-03-27 05:39:00 Test Item Value Reference Range Interpretation Comments MCV (test code = MCV) 104.3 80.0-98.0 [place] 519360-03-27 05:39:00 Test Item Value Reference Range Interpretation Comments MCH (test code = MCH) 35.6 pg 27.0-31.0 [facility] CenterThloycmBXHNWQDHHW0507-47-43 05:39:00 Test Item Value Reference Range Interpretation Comments MCHC (test code = MCHC) 34.2 32.0-36.0 [facility] CenterTulugfnPBFIJCZQVY4702-26-45 05:39:00 Test Item Value Reference Range Interpretation Comments RDW (test code = RDW) 13.4 11.5-14.5 [place] 519360-03-27 05:39:00 Test Item Value Reference Range Interpretation Comments Platelet (test code = Platelet) 426 201-450 [facility] CenterOzdmxccYZTMKYXZUE9830-26-38 05:39:00 Test Item Value Reference Range Interpretation Comments MPV (test code = MPV) 7.3 7.4-10.4 [facility] CenterTingkrqEZNIMTWOXO2763-84-24 05:39:00 Test Item Value Reference Range Interpretation Comments Segs (test code = Segs) 62.2 45.0-75.0 [facility] CenterMmbtwfuMCJUPPKTWM4609-26-31 05:39:00 Test Item Value Reference Range Interpretation Comments Lymphocytes (test code = Lymphocytes) 21.5 20.0-40.0 [facility] CenterTsnlfizBHBXIOYCAN3619-31-59 05:39:00 Test Item Value Reference Range Interpretation Comments Monocytes (test code = Monocytes) 11.7 2.0-12.0 [place] [address]-03-27 05:39:00 Test Item Value Reference Range Interpretation Comments Eosinophils (test code = 3.0 See_Comment [A utomated message] The Eosinophils) system which ge nerated this result tra nsmitted reference range : <=4.0. The reference r patria was not used to int erpret this result as normal/abnormal . [facility] CenterNyavwcxTJQUDAWGGO3368-99-87 05:39:00 Test Item Value Reference Range Interpretation Comments Basophils (test code = 1.6 See_Comment [Aut omated message] The Basophils) system which ge nerated this result tra nsmitted reference range : <=1.0. The reference r patria was not used to int erpret this result as normal/abnormal . [facility] CenterClsxjrnORQYAEWOTI8590-23-97 05:39:00 Test Item Value Reference Range Interpretation Comments Neutrophils # (test code = Neutrophils 4.5 1.5-8.1 #) [facility] CenterFwirrhuHNOWZQCCOE6537-40-38 05:39:00 Test Item Value Reference Range Interpretation Comments Lymphocytes # (test code = Lymphocytes 1.5 1.0-5.5 #) [place] 519360-03-27 05:39:00 Test Item Value Reference Range Interpretation Comments Monocytes # (test code 0.8 See_Comment [Aut omated message] The = Monocytes #) system which generated this result tra nsmitted reference range : <=0.8. The reference r patria was not used to int erpret this result as normal/abnormal . [facility] CenterLfrebvgLMTBGMGSTO3788-64-67 05:39:00 Test Item Value Reference Range Interpretation Comments Eosinophils # (test code 0.2 See_Comment [A utomated message] The = Eosinophils #) system whic h generated this result tra nsmitted reference range : <=0.5. The reference r patria was not used to int erpret this result as normal/abnormal . [facility] CenterRxrmghrDUTOYKOVIK0888-38-06 05:39:00 Test Item Value Reference Range Interpretation Comments Basophils # (test code 0.1 See_Comment [Aut omated message] The = Basophils #) system which generated this result tra nsmitted reference range : <=0.2. The reference r patria was not used to int erpret this result as normal/abnormal . [facility] CenterImfsvxbRGBIBVSWQZ4633-72-17 05:39:00 Test Item Value Reference Range Interpretation Comments Macrocyte (test code = 1+ *ABN*(02/05/20 Macrocyte) 12:39 AM) [place] 022580-03-27 05:39:00 Test Item Value Reference Range Interpretation Comments Ca Ion WB (test code = Ca Ion WB) 1.22 1.05-1.25 [place] 022580-03-27 05:39:00 Test Item Value Reference Range Interpretation Comments Ca Norm WB (test code = Ca Norm WB) 1.20 1.05-1.25 [facility]2020-03-27 05:39:00 Test Item Value Reference Range Interpretation Comments Glucose Lvl (test code = Glucose Lvl) 79 70-99 [place] 542560-03-27 05:39:00 Test Item Value Reference Range Interpretation Comments BUN (test code = BUN) 22 7-22 [facility]2020-03-27 05:39:00 Test Item Value Reference Range Interpretation Comments Creatinine Lvl (test code = Creatinine 1.28 0.50-1.40 Lvl) [facility]2020-03-27 05:39:00 Test Item Value Reference Range Interpretation Comments Sodium Lvl (test code = Sodium Lvl) 140 135-145 [facility]2020-03-27 05:39:00 Test Item Value Reference Range Interpretation Comments Potassium Lvl (test code = Potassium 3.3 3.5-5.1 Lvl) [facility]2020-03-27 05:39:00 Test Item Value Reference Range Interpretation Comments Chloride Lvl (test code = Chloride Lvl) 106 95-109 [facility]2020-03-27 05:39:00 Test Item Value Reference Range Interpretation Comments CO2 (test code = CO2) 24 24-32 [facility]2020-03-27 05:39:00 Test Item Value Reference Range Interpretation Comments Calcium Lvl (test code = Calcium Lvl) 9.3 8.5-10.5 [facility]2020-03-27 05:39:00 Test Item Value Reference Range Interpretation Comments AGAP (test code = AGAP) 13.3 10.0-20.0 [facility]2020-03-27 05:39:00 Test Item Value Reference Range Interpretation Comments eGFR (test code = eGFR) 40 [facility]2020-03-27 05:39:00 Test Item Value Reference Range Interpretation Comments Magnesium Lvl (test code = Magnesium 2.2 1.8-2.4 Lvl) [facility]2020-03-27 05:39:00 Test Item Value Reference Range Interpretation Comments Phosphorus (test code = Phosphorus) 2.9 2.5-4.5 [place] 542560-03-27 05:39:00 Test Item Value Reference Range Interpretation Comments Total Protein (test code = Total 7.7 6.4-8.4 Protein) [place] [address]-03-27 05:39:00 Test Item Value Reference Range Interpretation Comments Albumin Lvl (test code = Albumin Lvl) 3.1 3.5-5.0 [facility] [id number] 05:39:00 Test Item Value Reference Range Interpretation Comments ALT (test code = ALT) 19 See_Comment [Auto mated message] The system which ge nerated this result transmit rosendo reference range : <=65. The reference range was not used to interpr et this result as josi l/abnormal. [facility] [id number] 05:39:00 Test Item Value Reference Range Interpretation Comments AST (test code = AST) 26 See_Comment [Auto mated message] The system which ge nerated this result transmit rosendo reference range : <=37. The reference range was not used to interpr et this result as josi l/abnormal. [facility] [id number] 05:39:00 Test Item Value Reference Range Interpretation Comments Alk Phos (test code = Alk Phos) 75 39-136 [facility] [id number] 05:39:00 Test Item Value Reference Range Interpretation Comments Bili Total (test code = Bili Total) 0.6 0.2-1.3 [facility] [id number] 05:39:00 Test Item Value Reference Range Interpretation Comments Bili Direct (test code 0.2 See_Comment [Aut omated message] The = Bili Direct) system which generated this result tra nsmitted reference range : <=0.3. The reference r patria was not used to int erpret this result as josi l/abnormal. [facility] [employer] [id number] 05:39:00 Test Item Value Reference Range Interpretation Comments Bili Indirect (test 0.4 See_Comment [Automa rosendo message] The code = Bili Indirect) system which generated this result tra nsmitted reference range : <=1.0. The reference r patria was not used to int erpret this result as normal/abnormal . [facility] [employer] [id number] 05:39:00 Test Item Value Reference Range Interpretation Comments Globulin (test code = Globulin) 4.6 2.7-4.2 [facility] [id number] 05:39:00 Test Item Value Reference Range Interpretation Comments A/G Ratio (test code = A/G Ratio) 0.7 1 0.7-1.6 [facility] HospitalShdswinSUEYSXELKJ2665-00-15 05:39:00 Test Item Value Reference Range Interpretation Comments WBC (test code = WBC) 7.2 3.7-10.4 [facility] HospitalWwdhffkMBWKHTPGHI1307-58-02 05:39:00 Test Item Value Reference Range Interpretation Comments RBC (test code = RBC) 2.76 4.20-5.40 [facility] ServicesLmzjiwjCVRQKBRAAD3716-85-95 05:39:00 Test Item Value Reference Range Interpretation Comments Hgb (test code = Hgb) 9.8 12.0-16.0 [facility] HospitalPphnzxyZNHFFXCQMS3615-63-76 05:39:00 Test Item Value Reference Range Interpretation Comments Hct (test code = Hct) 28.8 36.0-48.0 [facility] HospitalBcmoydvXSLCVAPVHO6221-67-36 05:39:00 Test Item Value Reference Range Interpretation Comments MCV (test code = MCV) 104.3 80.0-98.0 [facility] HospitalDxtnlilSMJUQYZOKK8498-53-32 05:39:00 Test Item Value Reference Range Interpretation Comments MCH (test code = MCH) 35.6 pg 27.0-31.0 [facility] HospitalThxiqhvIAKUIPSTLM1735-44-33 05:39:00 Test Item Value Reference Range Interpretation Comments MCHC (test code = MCHC) 34.2 32.0-36.0 [facility] HospitalTyjnhkoOJCVJOWZBO2111-83-42 05:39:00 Test Item Value Reference Range Interpretation Comments RDW (test code = RDW) 13.4 11.5-14.5 [facility] HospitalAqnprbyWCJSTWUVFC6506-54-54 05:39:00 Test Item Value Reference Range Interpretation Comments Platelet (test code = Platelet) 426 109-450 [facility] HospitalPavdjifWQLHAFTHAI0643-32-09 05:39:00 Test Item Value Reference Range Interpretation Comments MPV (test code = MPV) 7.3 7.4-10.4 [facility] ServicesCakmcpiOEEDGUHAYP2222-67-34 05:39:00 Test Item Value Reference Range Interpretation Comments Segs (test code = Segs) 62.2 45.0-75.0 [place] 519360-03-27 05:39:00 Test Item Value Reference Range Interpretation Comments Lymphocytes (test code = Lymphocytes) 21.5 20.0-40.0 [place] 519360-03-27 05:39:00 Test Item Value Reference Range Interpretation Comments Monocytes (test code = Monocytes) 11.7 2.0-12.0 [place] 519360-03-27 05:39:00 Test Item Value Reference Range Interpretation Comments Eosinophils (test code = 3.0 See_Comment [A utomated message] The Eosinophils) system which ge nerated this result tra nsmitted reference range : <=4.0. The reference r patria was not used to int erpret this result as normal/abnormal . [place] [address]-03-27 05:39:00 Test Item Value Reference Range Interpretation Comments Basophils (test code = 1.6 See_Comment [Aut omated message] The Basophils) system which ge nerated this result tra nsmitted reference range : <=1.0. The reference r patria was not used to int erpret this result as normal/abnormal . [facility]xy[facility]QQECGXFY8946[facility] 05:39:00 Test Item Value Reference Range Interpretation Comments Neutrophils # (test code = Neutrophils 4.5 1.5-8.1 #) [place] 519360-03-27 05:39:00 Test Item Value Reference Range Interpretation Comments Lymphocytes # (test code = Lymphocytes 1.5 1.0-5.5 #) [place] 519360-03-27 05:39:00 Test Item Value Reference Range Interpretation Comments Monocytes # (test code 0.8 See_Comment [Aut omated message] The = Monocytes #) system which generated this result tra nsmitted reference range : <=0.8. The reference r patria was not used to int erpret this result as normal/abnormal . [place] 519360-03-27 05:39:00 Test Item Value Reference Range Interpretation Comments Eosinophils # (test code 0.2 See_Comment [A utomated message] The = Eosinophils #) system ic h generated this result tra nsmitted reference range : <=0.5. The reference r patria was not used to int erpret this result as normal/abnormal . [facility]FjclczvFEJKURIKFJ4866-54-57 05:39:00 Test Item Value Reference Range Interpretation Comments Basophils # (test code 0.1 See_Comment [Aut omated message] The = Basophils #) system which generated this result tra nsmitted reference range : <=0.2. The reference r patria was not used to int erpret this result as normal/abnormal . [facility] CenterOdixriuROWBBSTWUN0086-41-83 05:39:00 Test Item Value Reference Range Interpretation Comments Macrocyte (test code = 1+ *ABN*(02/05/20 Macrocyte) 12:39 AM) [id number] 05:39:00 Test Item Value Reference Range Interpretation Comments Ca Ion WB (test code = Ca Ion WB) 1.22 1.05-1.25 [place] 022580-03-27 05:39:00 Test Item Value Reference Range Interpretation Comments Ca Norm WB (test code = Ca Norm WB) 1.20 1.05-1.25 [facility]2020-03-27 05:39:00 Test Item Value Reference Range Interpretation Comments Glucose Lvl (test code = Glucose Lvl) 79 70-99 [facility]2020-03-27 05:39:00 Test Item Value Reference Range Interpretation Comments BUN (test code = BUN) 22 7-22 [facility]2020-03-27 05:39:00 Test Item Value Reference Range Interpretation Comments Creatinine Lvl (test code = Creatinine 1.28 0.50-1.40 Lvl) [facility]2020-03-27 05:39:00 Test Item Value Reference Range Interpretation Comments Sodium Lvl (test code = Sodium Lvl) 140 135-145 [facility]2020-03-27 05:39:00 Test Item Value Reference Range Interpretation Comments Potassium Lvl (test code = Potassium 3.3 3.5-5.1 Lvl) [place] 542560-03-27 05:39:00 Test Item Value Reference Range Interpretation Comments Chloride Lvl (test code = Chloride Lvl) 106 95-109 [place] 542560-03-27 05:39:00 Test Item Value Reference Range Interpretation Comments CO2 (test code = CO2) 24 24-32 [place] 542560-03-27 05:39:00 Test Item Value Reference Range Interpretation Comments Calcium Lvl (test code = Calcium Lvl) 9.3 8.5-10.5 [place] [address]-03-27 05:39:00 Test Item Value Reference Range Interpretation Comments AGAP (test code = AGAP) 13.3 10.0-20.0 [place] [address]-03-27 05:39:00 Test Item Value Reference Range Interpretation Comments eGFR (test code = eGFR) 40 [place] [address]-03-27 05:39:00 Test Item Value Reference Range Interpretation Comments Magnesium Lvl (test code = Magnesium 2.2 1.8-2.4 Lvl) [place] [address]-03-27 05:39:00 Test Item Value Reference Range Interpretation Comments Phosphorus (test code = Phosphorus) 2.9 2.5-4.5 [place] 542560-03-27 05:39:00 Test Item Value Reference Range Interpretation Comments Total Protein (test code = Total 7.7 6.4-8.4 Protein) [place] [address]-03-27 05:39:00 Test Item Value Reference Range Interpretation Comments Albumin Lvl (test code = Albumin Lvl) 3.1 3.5-5.0 [place] 542560-03-27 05:39:00 Test Item Value Reference Range Interpretation Comments ALT (test code = ALT) 19 See_Comment [Auto mated message] The system which ge nerated this result transmit rosendo reference range : <=65. The reference range was not used to interpr et this result as josi l/abnormal. [facility] [id number] 05:39:00 Test Item Value Reference Range Interpretation Comments AST (test code = AST) 26 See_Comment [Auto mated message] The system which ge nerated this result transmit rosendo reference range : <=37. The reference range was not used to interpr et this result as josi l/abnormal. [place] [address]-03-27 05:39:00 Test Item Value Reference Range Interpretation Comments Alk Phos (test code = Alk Phos) 75 39-136 [facility] [id number] 05:39:00 Test Item Value Reference Range Interpretation Comments Bili Total (test code = Bili Total) 0.6 0.2-1.3 [facility]2020-03-27 05:39:00 Test Item Value Reference Range Interpretation Comments Bili Direct (test code 0.2 See_Comment [Aut omated message] The = Bili Direct) system which generated this result tra nsmitted reference range : <=0.3. The reference r patria was not used to int erpret this result as josi l/abnormal. [facility] [id number] 05:39:00 Test Item Value Reference Range Interpretation Comments Bili Indirect (test 0.4 See_Comment [Automa rosendo message] The code = Bili Indirect) system which generated this result tra nsmitted reference range : <=1.0. The reference r patria was not used to int erpret this result as normal/abnormal . [place] 542560-03-27 05:39:00 Test Item Value Reference Range Interpretation Comments Globulin (test code = Globulin) 4.6 2.7-4.2 [facility] [id number] 05:39:00 Test Item Value Reference Range Interpretation Comments A/G Ratio (test code = A/G Ratio) 0.7 1 0.7-1.6 [place] [address]-03-27 05:39:00 Test Item Value Reference Range Interpretation Comments WBC (test code = WBC) 7.2 3.7-10.4 [place] [address]-03-27 05:39:00 Test Item Value Reference Range Interpretation Comments RBC (test code = RBC) 2.76 4.20-5.40 [place] [address]-03-27 05:39:00 Test Item Value Reference Range Interpretation Comments Hgb (test code = Hgb) 9.8 12.0-16.0 [place] [address]-03-27 05:39:00 Test Item Value Reference Range Interpretation Comments Hct (test code = Hct) 28.8 36.0-48.0 [place] [address]-03-27 05:39:00 Test Item Value Reference Range Interpretation Comments MCV (test code = MCV) 104.3 80.0-98.0 [place] [address]-03-27 05:39:00 Test Item Value Reference Range Interpretation Comments MCH (test code = MCH) 35.6 pg 27.0-31.0 [facility]WhyboffBLNBVZWPXQ1419-12-13 05:39:00 Test Item Value Reference Range Interpretation Comments MCHC (test code = MCHC) 34.2 32.0-36.0 [facility] CenterAjzfnzkOKHTUQWCWW9717-36-07 05:39:00 Test Item Value Reference Range Interpretation Comments RDW (test code = RDW) 13.4 11.5-14.5 [facility] CenterTocifytKGPUYQEDAX1115-43-54 05:39:00 Test Item Value Reference Range Interpretation Comments Platelet (test code = Platelet) 426 133-450 [facility] CenterWmythzlCPFHNSCWUX6009-41-29 05:39:00 Test Item Value Reference Range Interpretation Comments MPV (test code = MPV) 7.3 7.4-10.4 [facility] CenterExtxpenFBXPXGJQHO5961-15-24 05:39:00 Test Item Value Reference Range Interpretation Comments Segs (test code = Segs) 62.2 45.0-75.0 [facility] CenterUdifnseJOHLMYHVSC2276-25-22 05:39:00 Test Item Value Reference Range Interpretation Comments Lymphocytes (test code = Lymphocytes) 21.5 20.0-40.0 [facility] CenterEmtarveMEDITGFAMY8433-10-14 05:39:00 Test Item Value Reference Range Interpretation Comments Monocytes (test code = Monocytes) 11.7 2.0-12.0 [facility] CenterSllyyqyIRLJWFQCIZ1471-00-89 05:39:00 Test Item Value Reference Range Interpretation Comments Eosinophils (test code = 3.0 See_Comment [A utomated message] The Eosinophils) system which ge nerated this result tra nsmitted reference range : <=4.0. The reference r patria was not used to int erpret this result as normal/abnormal . [facility] CenterYuekizjVXSIUKTDWR0647-05-47 05:39:00 Test Item Value Reference Range Interpretation Comments Basophils (test code = 1.6 See_Comment [Aut omated message] The Basophils) system which ge nerated this result tra nsmitted reference range : <=1.0. The reference r patria was not used to int erpret this result as normal/abnormal . [facility] CenterLixnbduPSUMRCKBFE9670-29-31 05:39:00 Test Item Value Reference Range Interpretation Comments Neutrophils # (test code = Neutrophils 4.5 1.5-8.1 #) [facility] CenterUdvhndvQFAHYCTSPP0689-62-07 05:39:00 Test Item Value Reference Range Interpretation Comments Lymphocytes # (test code = Lymphocytes 1.5 1.0-5.5 #) [facility] CenterKenwydpWVWYMMUPRM0308-59-34 05:39:00 Test Item Value Reference Range Interpretation Comments Monocytes # (test code 0.8 See_Comment [Aut omated message] The = Monocytes #) system which generated this result tra nsmitted reference range : <=0.8. The reference r patria was not used to int erpret this result as normal/abnormal . [facility] CenterOzrqlcpLGMBJZUYLN4019-75-81 05:39:00 Test Item Value Reference Range Interpretation Comments Eosinophils # (test code 0.2 See_Comment [A utomated message] The = Eosinophils #) system whic h generated this result tra nsmitted reference range : <=0.5. The reference r patria was not used to int erpret this result as normal/abnormal . [facility] CenterYbwokqkBWOXAZDBWR6350-78-85 05:39:00 Test Item Value Reference Range Interpretation Comments Basophils # (test code 0.1 See_Comment [Aut omated message] The = Basophils #) system which generated this result tra nsmitted reference range : <=0.2. The reference r patria was not used to int erpret this result as normal/abnormal . [facility] CenterYuahmcmCGKBFJROLS5432-79-18 05:39:00 Test Item Value Reference Range Interpretation Comments Macrocyte (test code = 1+ *ABN*(02/05/20 Macrocyte) 12:39 AM) [facility]2020-03-27 05:39:00 Test Item Value Reference Range Interpretation Comments Ca Ion WB (test code = Ca Ion WB) 1.22 1.05-1.25 [facility]2020-03-27 05:39:00 Test Item Value Reference Range Interpretation Comments Ca Norm WB (test code = Ca Norm WB) 1.20 1.05-1.25 [facility]2020-03-27 05:39:00 Test Item Value Reference Range Interpretation Comments Glucose Lvl (test code = Glucose Lvl) 79 70-99 [facility] [id number] 05:39:00 Test Item Value Reference Range Interpretation Comments BUN (test code = BUN) 22 7-22 [facility]2020-03-27 05:39:00 Test Item Value Reference Range Interpretation Comments Creatinine Lvl (test code = Creatinine 1.28 0.50-1.40 Lvl) [facility]2020-03-27 05:39:00 Test Item Value Reference Range Interpretation Comments Sodium Lvl (test code = Sodium Lvl) 140 135-145 [facility]ionREBE[facility] [id number] 05:39:00 Test Item Value Reference Range Interpretation Comments Potassium Lvl (test code = Potassium 3.3 3.5-5.1 Lvl) [facility] ResourcesSaperionUNC [facility]ALTH [id number] 05:39:00 Test Item Value Reference Range Interpretation Comments Chloride Lvl (test code = Chloride Lvl) 106 95-109 [facility]2020-03-27 05:39:00 Test Item Value Reference Range Interpretation Comments CO2 (test code = CO2) 24 24-32 [place] 542560-03-27 05:39:00 Test Item Value Reference Range Interpretation Comments Calcium Lvl (test code = Calcium Lvl) 9.3 8.5-10.5 [facility]2020-03-27 05:39:00 Test Item Value Reference Range Interpretation Comments AGAP (test code = AGAP) 13.3 10.0-20.0 [facility]2020-03-27 05:39:00 Test Item Value Reference Range Interpretation Comments eGFR (test code = eGFR) 40 [facility]2020-03-27 05:39:00 Test Item Value Reference Range Interpretation Comments Magnesium Lvl (test code = Magnesium 2.2 1.8-2.4 Lvl) [facility] ResourcesSaperionUNC HEALTH [id number] 05:39:00 Test Item Value Reference Range Interpretation Comments Phosphorus (test code = Phosphorus) 2.9 2.5-4.5 [place] 542560-03-27 05:39:00 Test Item Value Reference Range Interpretation Comments Total Protein (test code = Total 7.7 6.4-8.4 Protein) [facility]2020-03-27 05:39:00 Test Item Value Reference Range Interpretation Comments Albumin Lvl (test code = Albumin Lvl) 3.1 3.5-5.0 [place] 542560-03-27 05:39:00 Test Item Value Reference Range Interpretation Comments ALT (test code = ALT) 19 See_Comment [Auto mated message] The system which ge nerated this result transmit rosendo reference range : <=65. The reference range was not used to interpr et this result as josi l/abnormal. [facility] [id number] 05:39:00 Test Item Value Reference Range Interpretation Comments AST (test code = AST) 26 See_Comment [Auto mated message] The system which ge nerated this result transmit rosendo reference range : <=37. The reference range was not used to interpr et this result as josi l/abnormal. [facility] [id number] 05:39:00 Test Item Value Reference Range Interpretation Comments Alk Phos (test code = Alk Phos) 75 39-136 [facility] [id number] 05:39:00 Test Item Value Reference Range Interpretation Comments Bili Total (test code = Bili Total) 0.6 0.2-1.3 [facility] [id number] 05:39:00 Test Item Value Reference Range Interpretation Comments Bili Direct (test code 0.2 See_Comment [Aut omated message] The = Bili Direct) system which generated this result tra nsmitted reference range : <=0.3. The reference r patria was not used to int erpret this result as josi l/abnormal. [facility] [id number] 05:39:00 Test Item Value Reference Range Interpretation Comments Bili Indirect (test 0.4 See_Comment [Automa rosendo message] The code = Bili Indirect) system which generated this result tra nsmitted reference range : <=1.0. The reference r patria was not used to int erpret this result as normal/abnormal . [facility] [employer] [id number] 05:39:00 Test Item Value Reference Range Interpretation Comments Globulin (test code = Globulin) 4.6 2.7-4.2 [facility] [id number] 05:39:00 Test Item Value Reference Range Interpretation Comments A/G Ratio (test code = A/G Ratio) 0.7 1 0.7-1.6 [facility] HospitalVvzqrcsNIZFXRRJJL5883-74-23 05:39:00 Test Item Value Reference Range Interpretation Comments WBC (test code = WBC) 7.2 3.7-10.4 [facility] CenterBokxsbcAEXFNGJAEE1835-95-97 05:39:00 Test Item Value Reference Range Interpretation Comments RBC (test code = RBC) 2.76 4.20-5.40 [facility] CenterRgmqwdhPNOAHJXAOL9794-91-87 05:39:00 Test Item Value Reference Range Interpretation Comments Hgb (test code = Hgb) 9.8 12.0-16.0 [facility] CenterXcpxsmoATUBTLOXYV6983-48-19 05:39:00 Test Item Value Reference Range Interpretation Comments Hct (test code = Hct) 28.8 36.0-48.0 [facility] CenterRtgbyegOVFWLPMYZW2937-93-48 05:39:00 Test Item Value Reference Range Interpretation Comments MCV (test code = MCV) 104.3 80.0-98.0 [facility] CenterRcmfdbjYFISFDFKKI1597-64-68 05:39:00 Test Item Value Reference Range Interpretation Comments MCH (test code = MCH) 35.6 pg 27.0-31.0 [facility] CenterRyzrtmmUXZPOPUMDO4386-42-55 05:39:00 Test Item Value Reference Range Interpretation Comments MCHC (test code = MCHC) 34.2 32.0-36.0 [facility] CenterDvwpyamAHPTATNBPQ7417-53-42 05:39:00 Test Item Value Reference Range Interpretation Comments RDW (test code = RDW) 13.4 11.5-14.5 [facility] CenterEjwfhrcNEMDCERAVU8688-37-41 05:39:00 Test Item Value Reference Range Interpretation Comments Platelet (test code = Platelet) 423 192-450 [facility] CenterJxrxmxbZQFOPCRXYU9660-17-16 05:39:00 Test Item Value Reference Range Interpretation Comments MPV (test code = MPV) 7.3 7.4-10.4 [facility] CenterKckggnxEGTUUPDFLY1684-45-34 05:39:00 Test Item Value Reference Range Interpretation Comments Segs (test code = Segs) 62.2 45.0-75.0 [facility] CenterDeaacihVLMXALCJOX5211-40-75 05:39:00 Test Item Value Reference Range Interpretation Comments Lymphocytes (test code = Lymphocytes) 21.5 20.0-40.0 [facility] CenterXctaynlDDTURCNZGZ4634-31-74 05:39:00 Test Item Value Reference Range Interpretation Comments Monocytes (test code = Monocytes) 11.7 2.0-12.0 [place] 519360-03-27 05:39:00 Test Item Value Reference Range Interpretation Comments Eosinophils (test code = 3.0 See_Comment [A utomated message] The Eosinophils) system which ge nerated this result tra nsmitted reference range : <=4.0. The reference r patria was not used to int erpret this result as normal/abnormal . [facility] CenterLxconbcGRSAHGATEO2296-02-78 05:39:00 Test Item Value Reference Range Interpretation Comments Basophils (test code = 1.6 See_Comment [Aut omated message] The Basophils) system which ge nerated this result tra nsmitted reference range : <=1.0. The reference r patria was not used to int erpret this result as normal/abnormal . [facility] CenterGtjowtvTWUJSXEMDG5651-93-15 05:39:00 Test Item Value Reference Range Interpretation Comments Neutrophils # (test code = Neutrophils 4.5 1.5-8.1 #) [facility] CenterMwvwfemOPIEJCTZLL9486-21-26 05:39:00 Test Item Value Reference Range Interpretation Comments Lymphocytes # (test code = Lymphocytes 1.5 1.0-5.5 #) [facility] CenterGgndcdeYHCGXPKSPV1548-78-02 05:39:00 Test Item Value Reference Range Interpretation Comments Monocytes # (test code 0.8 See_Comment [Aut omated message] The = Monocytes #) system which generated this result tra nsmitted reference range : <=0.8. The reference r patria was not used to int erpret this result as normal/abnormal . [facility] CenterXfomidtNQSLSQGRJA3066-30-70 05:39:00 Test Item Value Reference Range Interpretation Comments Eosinophils # (test code 0.2 See_Comment [A utomated message] The = Eosinophils #) system whic h generated this result tra nsmitted reference range : <=0.5. The reference r patria was not used to int erpret this result as normal/abnormal . [facility] CenterNyinyfxIBAQLQLGGE5091-47-73 05:39:00 Test Item Value Reference Range Interpretation Comments Basophils # (test code 0.1 See_Comment [Aut omated message] The = Basophils #) system which generated this result tra nsmitted reference range : <=0.2. The reference r patria was not used to int erpret this result as normal/abnormal . [facility] CenterZulalbhZDDQASOJEA6407-47-73 05:39:00 Test Item Value Reference Range Interpretation Comments Macrocyte (test code = 1+ *ABN*(02/05/20 Macrocyte) 12:39 AM) [facility] [id number] 05:39:00 Test Item Value Reference Range Interpretation Comments Ca Ion WB (test code = Ca Ion WB) 1.22 1.05-1.25 [facility] [id number] 05:39:00 Test Item Value Reference Range Interpretation Comments Ca Norm WB (test code = Ca Norm WB) 1.20 1.05-1.25 [facility]2020-03-27 05:39:00 Test Item Value Reference Range Interpretation Comments Glucose Lvl (test code = Glucose Lvl) 79 70-99 [facility]2020-03-27 05:39:00 Test Item Value Reference Range Interpretation Comments BUN (test code = BUN) 22 7-22 [facility]2020-03-27 05:39:00 Test Item Value Reference Range Interpretation Comments Creatinine Lvl (test code = Creatinine 1.28 0.50-1.40 Lvl) [facility]2020-03-27 05:39:00 Test Item Value Reference Range Interpretation Comments Sodium Lvl (test code = Sodium Lvl) 140 135-145 [facility]2020-03-27 05:39:00 Test Item Value Reference Range Interpretation Comments Potassium Lvl (test code = Potassium 3.3 3.5-5.1 Lvl) [facility]2020-03-27 05:39:00 Test Item Value Reference Range Interpretation Comments Chloride Lvl (test code = Chloride Lvl) 106 95-109 [facility]2020-03-27 05:39:00 Test Item Value Reference Range Interpretation Comments CO2 (test code = CO2) 24 24-32 [facility]2020-03-27 05:39:00 Test Item Value Reference Range Interpretation Comments Calcium Lvl (test code = Calcium Lvl) 9.3 8.5-10.5 [facility]2020-03-27 05:39:00 Test Item Value Reference Range Interpretation Comments AGAP (test code = AGAP) 13.3 10.0-20.0 [facility]2020-03-27 05:39:00 Test Item Value Reference Range Interpretation Comments eGFR (test code = eGFR) 40 [facility]ionALYSSA [facility] [id number] 05:39:00 Test Item Value Reference Range Interpretation Comments Magnesium Lvl (test code = Magnesium 2.2 1.8-2.4 Lvl) [place] [address]-03-27 05:39:00 Test Item Value Reference Range Interpretation Comments Phosphorus (test code = Phosphorus) 2.9 2.5-4.5 [facility] [id number] 05:39:00 Test Item Value Reference Range Interpretation Comments Total Protein (test code = Total 7.7 6.4-8.4 Protein) [place] [address]-03-27 05:39:00 Test Item Value Reference Range Interpretation Comments Albumin Lvl (test code = Albumin Lvl) 3.1 3.5-5.0 [place] [address]-03-27 05:39:00 Test Item Value Reference Range Interpretation Comments ALT (test code = ALT) 19 See_Comment [Auto mated message] The system which ge nerated this result transmit rosendo reference range : <=65. The reference range was not used to interpr et this result as josi l/abnormal. [facility] [id number] 05:39:00 Test Item Value Reference Range Interpretation Comments AST (test code = AST) 26 See_Comment [Auto mated message] The system which ge nerated this result transmit rosendo reference range : <=37. The reference range was not used to interpr et this result as josi l/abnormal. [facility] [id number] 05:39:00 Test Item Value Reference Range Interpretation Comments Alk Phos (test code = Alk Phos) 75 39-136 [facility] [id number] 05:39:00 Test Item Value Reference Range Interpretation Comments Bili Total (test code = Bili Total) 0.6 0.2-1.3 [facility] [id number] 05:39:00 Test Item Value Reference Range Interpretation Comments Bili Direct (test code 0.2 See_Comment [Aut omated message] The = Bili Direct) system which generated this result tra nsmitted reference range : <=0.3. The reference r patria was not used to int erpret this result as josi l/abnormal. [facility]2020-03-27 05:39:00 Test Item Value Reference Range Interpretation Comments Bili Indirect (test 0.4 See_Comment [Automa rosendo message] The code = Bili Indirect) system which generated this result tra nsmitted reference range : <=1.0. The reference r patria was not used to int erpret this result as normal/abnormal . [facility]2020-03-27 05:39:00 Test Item Value Reference Range Interpretation Comments Globulin (test code = Globulin) 4.6 2.7-4.2 [facility] [facility] 05:[facility]00 Test Item Value Reference Range Interpretation Comments A/G Ratio (test code = A/G Ratio) 0.7 1 0.7-1.6 [facility]VVUACFEJOL3768-53-38 05:39:00 Test Item Value Reference Range Interpretation Comments WBC (test code = WBC) 7.2 3.7-10.4 [facility]PcijgfrKGYNXRLKST4215-55-60 05:39:00 Test Item Value Reference Range Interpretation Comments RBC (test code = RBC) 2.76 4.20-5.40 [facility]SnimdmyKBQNRLSGLP9188-19-85 05:39:00 Test Item Value Reference Range Interpretation Comments Hgb (test code = Hgb) 9.8 12.0-16.0 [facility]XsqwmtkUHSSTZEAES6641-06-68 05:39:00 Test Item Value Reference Range Interpretation Comments Hct (test code = Hct) 28.8 36.0-48.0 [facility] CenterHkdhssjGKDZVQOQJD7510-68-41 05:39:00 Test Item Value Reference Range Interpretation Comments MCV (test code = MCV) 104.3 80.0-98.0 [place] 519360-03-27 05:39:00 Test Item Value Reference Range Interpretation Comments MCH (test code = MCH) 35.6 pg 27.0-31.0 [facility] CenterSpgphzoYCUTXUYNIB4411-59-52 05:39:00 Test Item Value Reference Range Interpretation Comments MCHC (test code = MCHC) 34.2 32.0-36.0 [place] 519360-03-27 05:39:00 Test Item Value Reference Range Interpretation Comments RDW (test code = RDW) 13.4 11.5-14.5 [place] 519360-03-27 05:39:00 Test Item Value Reference Range Interpretation Comments Platelet (test code = Platelet) 426 033-450 [place] 519360-03-27 05:39:00 Test Item Value Reference Range Interpretation Comments MPV (test code = MPV) 7.3 7.4-10.4 [place] 519360-03-27 05:39:00 Test Item Value Reference Range Interpretation Comments Segs (test code = Segs) 62.2 45.0-75.0 [place] 519360-03-27 05:39:00 Test Item Value Reference Range Interpretation Comments Lymphocytes (test code = Lymphocytes) 21.5 20.0-40.0 [place] [address]-03-27 05:39:00 Test Item Value Reference Range Interpretation Comments Monocytes (test code = Monocytes) 11.7 2.0-12.0 [place] 519360-03-27 05:39:00 Test Item Value Reference Range Interpretation Comments Eosinophils (test code = 3.0 See_Comment [A utomated message] The Eosinophils) system which ge nerated this result tra nsmitted reference range : <=4.0. The reference r patria was not used to int erpret this result as normal/abnormal . [facility]ImgdshxAZDXQVTWDX8624-71-21 05:39:00 Test Item Value Reference Range Interpretation Comments Basophils (test code = 1.6 See_Comment [Aut omated message] The Basophils) system which ge nerated this result tra nsmitted reference range : <=1.0. The reference r patria was not used to int erpret this result as normal/abnormal . [facility] CenterSkswfxoNWTFRKGJED3655-40-29 05:39:00 Test Item Value Reference Range Interpretation Comments Neutrophils # (test code = Neutrophils 4.5 1.5-8.1 #) [place] 519360-03-27 05:39:00 Test Item Value Reference Range Interpretation Comments Lymphocytes # (test code = Lymphocytes 1.5 1.0-5.5 #) [place] 519360-03-27 05:39:00 Test Item Value Reference Range Interpretation Comments Monocytes # (test code 0.8 See_Comment [Aut omated message] The = Monocytes #) system which generated this result tra nsmitted reference range : <=0.8. The reference r patria was not used to int erpret this result as normal/abnormal . [facility]CcntgeeLEVKYHHMTD5693-36-51 05:39:00 Test Item Value Reference Range Interpretation Comments Eosinophils # (test code 0.2 See_Comment [A utomated message] The = Eosinophils #) system whic h generated this result tra nsmitted reference range : <=0.5. The reference r patria was not used to int erpret this result as normal/abnormal . [facility] HospitalNdbaotoKVOVLSXZYB0651-29-82 05:39:00 Test Item Value Reference Range Interpretation Comments Basophils # (test code 0.1 See_Comment [Aut omated message] The = Basophils #) system which generated this result tra nsmitted reference range : <=0.2. The reference r patria was not used to int erpret this result as normal/abnormal . [facility] HospitalAvhqliiPVJOIOBJVM2295-31-71 05:39:00 Test Item Value Reference Range Interpretation Comments Macrocyte (test code = 1+ *ABN*(02/05/20 Macrocyte) 12:39 AM) [facility] [id number] 05:39:00 Test Item Value Reference Range Interpretation Comments Ca Ion WB (test code = Ca Ion WB) 1.22 1.05-1.25 [facility] ResourcesSaperionSIERRA TUCSONLaudvilleMUSC HEALTH BLACK [facility]IVER MEDICAL CENTERQXMKVOR7678-73-16 05:39:00 Test Item Value Reference Range Interpretation Comments Ca Norm WB (test code = Ca Norm WB) 1.20 1.05-1.25 [facility] ResourcesAbout[facility] [id number] 05:39:00 Test Item Value Reference Range Interpretation Comments Glucose Lvl (test code = Glucose Lvl) 79 70-99 [facility] [id number] 05:39:00 Test Item Value Reference Range Interpretation Comments BUN (test code = BUN) 22 7-22 [facility] [id number] 05:39:00 Test Item Value Reference Range Interpretation Comments Creatinine Lvl (test code = Creatinine 1.28 0.50-1.40 Lvl) [facility] [id number] 05:39:00 Test Item Value Reference Range Interpretation Comments Sodium Lvl (test code = Sodium Lvl) 140 135-145 [facility] [id number] 05:39:00 Test Item Value Reference Range Interpretation Comments Potassium Lvl (test code = Potassium 3.3 3.5-5.1 Lvl) [facility] [employer] [id number] 05:39:00 Test Item Value Reference Range Interpretation Comments Chloride Lvl (test code = Chloride Lvl) 106 95-109 [facility] [id number] 05:39:00 Test Item Value Reference Range Interpretation Comments CO2 (test code = CO2) 24 24-32 [facility] [id number] 05:39:00 Test Item Value Reference Range Interpretation Comments Calcium Lvl (test code = Calcium Lvl) 9.3 8.5-10.5 [facility] [employer] [id number] 05:39:00 Test Item Value Reference Range Interpretation Comments AGAP (test code = AGAP) 13.3 10.0-20.0 [facility] [id number] 05:39:00 Test Item Value Reference Range Interpretation Comments eGFR (test code = eGFR) 40 [facility] [id number] 05:39:00 Test Item Value Reference Range Interpretation Comments Magnesium Lvl (test code = Magnesium 2.2 1.8-2.4 Lvl) [facility] [employer] [id number] 05:39:00 Test Item Value Reference Range Interpretation Comments Phosphorus (test code = Phosphorus) 2.9 2.5-4.5 [facility] RMKPF4420-07-31 05:39:00 Test Item Value Reference Range Interpretation Comments Total Protein (test code = Total 7.7 6.4-8.4 Protein) [facility] [id number] 05:39:00 Test Item Value Reference Range Interpretation Comments Albumin Lvl (test code = Albumin Lvl) 3.1 3.5-5.0 [facility] [employer] [id number] 05:39:00 Test Item Value Reference Range Interpretation Comments ALT (test code = ALT) 19 See_Comment [Auto mated message] The system which ge nerated this result transmit rosendo reference range : <=65. The reference range was not used to interpr et this result as josi l/abnormal. [facility] [employer] [id number] 05:39:00 Test Item Value Reference Range Interpretation Comments AST (test code = AST) 26 See_Comment [Auto mated message] The system which ge nerated this result transmit rosendo reference range : <=37. The reference range was not used to interpr et this result as josi l/abnormal. [facility] [id number] 05:39:00 Test Item Value Reference Range Interpretation Comments Alk Phos (test code = Alk Phos) 75 39-136 [facility] [id number] 05:39:00 Test Item Value Reference Range Interpretation Comments Bili Total (test code = Bili Total) 0.6 0.2-1.3 [facility] [id number] 05:39:00 Test Item Value Reference Range Interpretation Comments Bili Direct (test code 0.2 See_Comment [Aut omated message] The = Bili Direct) system which generated this result tra nsmitted reference range : <=0.3. The reference r patria was not used to int erpret this result as josi l/abnormal. [facility] [id number] 05:39:00 Test Item Value Reference Range Interpretation Comments Bili Indirect (test 0.4 See_Comment [Automa rosendo message] The code = Bili Indirect) system which generated this result tra nsmitted reference range : <=1.0. The reference r patria was not used to int erpret this result as normal/abnormal . [facility] [id number] 05:39:00 Test Item Value Reference Range Interpretation Comments Globulin (test code = Globulin) 4.6 2.7-4.2 [facility] [id number] 05:39:00 Test Item Value Reference Range Interpretation Comments A/G Ratio (test code = A/G Ratio) 0.7 1 0.7-1.6 [place] [address]-03-27 05:39:00 Test Item Value Reference Range Interpretation Comments WBC (test code = WBC) 7.2 3.7-10.4 [place] [address]-03-27 05:39:00 Test Item Value Reference Range Interpretation Comments RBC (test code = RBC) 2.76 4.20-5.[address]03-27 05:39:00 Test Item Value Reference Range Interpretation Comments Hgb (test code = Hgb) 9.8 12.0-16.0 [place] [address]-03-27 05:39:00 Test Item Value Reference Range Interpretation Comments Hct (test code = Hct) 28.8 36.0-48.0 [place] [address]-03-27 05:39:00 Test Item Value Reference Range Interpretation Comments MCV (test code = MCV) 104.3 80.0-98.0 [place] [address]-03-27 05:39:00 Test Item Value Reference Range Interpretation Comments MCH (test code = MCH) 35.6 pg 27.0-31.0 [place] 519360-03-27 05:39:00 Test Item Value Reference Range Interpretation Comments MCHC (test code = MCHC) 34.2 32.0-36.0 [place]360-03-27 05:39:00 Test Item Value Reference Range Interpretation Comments RDW (test code = RDW) 13.4 11.5-14.5 [place]360-03-27 05:39:00 Test Item Value Reference Range Interpretation Comments Platelet (test code = Platelet) 426 566-450 [place]360-03-27 05:39:00 Test Item Value Reference Range Interpretation Comments MPV (test code = MPV) 7.3 7.4-10.4 [place]360-03-27 05:39:00 Test Item Value Reference Range Interpretation Comments Segs (test code = Segs) 62.2 45.0-75.0 [place]360-03-27 05:39:00 Test Item Value Reference Range Interpretation Comments Lymphocytes (test code = Lymphocytes) 21.5 20.0-40.0 [place]360-03-27 05:39:00 Test Item Value Reference Range Interpretation Comments Monocytes (test code = Monocytes) 11.7 2.0-12.0 [place] [address]-03-27 05:39:00 Test Item Value Reference Range Interpretation Comments Eosinophils (test code = 3.0 See_Comment [A utomated message] The Eosinophils) system which ge nerated this result tra nsmitted reference range : <=4.0. The reference r patria was not used to int erpret this result as normal/abnormal . [place]360-03-27 05:39:00 Test Item Value Reference Range Interpretation Comments Basophils (test code = 1.6 See_Comment [Aut omated message] The Basophils) system which ge nerated this result tra nsmitted reference range : <=1.0. The reference r patria was not used to int erpret this result as normal/abnormal . [facility]FwsuhnjVSAUTWMUJT5309-27-05 05:39:00 Test Item Value Reference Range Interpretation Comments Neutrophils # (test code = Neutrophils 4.5 1.5-8.1 #) [facility] CenterKkhhnacPVJZSAKZMQ1121-75-17 05:39:00 Test Item Value Reference Range Interpretation Comments Lymphocytes # (test code = Lymphocytes 1.5 1.0-5.5 #) [facility] CenterNgalpjrEPPZYECOQT6226-95-23 05:39:00 Test Item Value Reference Range Interpretation Comments Monocytes # (test code 0.8 See_Comment [Aut omated message] The = Monocytes #) system which generated this result tra nsmitted reference range : <=0.8. The reference r patria was not used to int erpret this result as normal/abnormal . [facility] CenterDuvzgcqLGEANPFTEL6045-41-66 05:39:00 Test Item Value Reference Range Interpretation Comments Eosinophils # (test code 0.2 See_Comment [A utomated message] The = Eosinophils #) system whic h generated this result tra nsmitted reference range : <=0.5. The reference r patria was not used to int erpret this result as normal/abnormal . [facility] CenterJwluyjmOWTAUWIEMR1180-26-15 05:39:00 Test Item Value Reference Range Interpretation Comments Basophils # (test code 0.1 See_Comment [Aut omated message] The = Basophils #) system which generated this result tra nsmitted reference range : <=0.2. The reference r patria was not used to int erpret this result as normal/abnormal . [facility] CenterBhmoexiNIUVRRLIUD6863-40-52 05:39:00 Test Item Value Reference Range Interpretation Comments Macrocyte (test code = 1+ *ABN*(02/05/20 Macrocyte) 12:39 AM) [facility]2020-03-27 05:39:00 Test Item Value Reference Range Interpretation Comments Ca Ion WB (test code = Ca Ion WB) 1.22 1.05-1.25 [place] 022580-03-27 05:39:00 Test Item Value Reference Range Interpretation Comments Ca Norm WB (test code = Ca Norm WB) 1.20 1.05-1.25 [facility] ResourcesannUrinalysis complete panel - [id number] 03:09:00 Test Item Value Reference Range Interpretation Comments Color of Urine by Auto (test light yellow code = 59114-5) Appearance of Urine (test code clear clear = 5767-9) Glucose [Presence] in Urine by negative negative Automated test strip (test code = 31714-0) Bilirubin.total [Mass/volume] negative negative in Urine (test code = 1978-6) Ketones [Mass/volume] in Urine negative negative by Automated test strip (test code = 50745-6) Specific gravity of Urine by 1.004 1.003-1.030 Automated test strip (test code = 81262-6) blood urine (test code = blood trace negative urine) pH of Urine (test code = 5.500 5-9 2756-5) protein urine (UA) (test code = negative negative protein urine (UA)) Urobilinogen [Presence] in normal 0.2-1.0 Urine (test code = 58260-7) Nitrite [Presence] in Urine by negative negative Test strip (test code = 5802-4) Leukocyte esterase [Presence] =2 negative H in Urine by Automated test strip (test code = 72002-3) Erythrocytes [#/volume] in =1-5 0-5 Urine by Automated count (test code = 798-9) Leukocytes [#/area] in Urine =15-19 0-5 H sediment by Automated count (test code = 09322-0) Epithelial cells [Presence] in =1-5 0-5 Urine sediment by Light microscopy (test code = 88477-5) Bacteria identified in Urine by none detected none detect Culture (test code = 630-4) Casts [#/area] in Urine =2-5 none detect sediment by Automated count (test code = 12829-9) urine culture added? (test code yes = urine culture added?) [facility] GroupUrinalysis complete panel - [id number] 03:09:00 Test Item Value Reference Range Interpretation Comments Color of Urine by Auto (test light yellow code = 79753-6) Appearance of Urine (test code clear clear = 5767-9) Glucose [Presence] in Urine by negative negative Automated test strip (test code = 14842-9) Bilirubin.total [Mass/volume] negative negative in Urine (test code = 1977-) Ketones [Mass/volume] in Urine negative negative by Automated test strip (test code = 60109-6) Specific gravity of Urine by 1.004 1.003-1.030 Automated test strip (test code = 72417-7) blood urine (test code = blood trace negative urine) pH of Urine (test code = 5.500 5-9 2756-5) protein urine (UA) (test code = negative negative protein urine (UA)) Urobilinogen [Presence] in normal 0.2-1.0 Urine (test code = 02243-8) Nitrite [Presence] in Urine by negative negative Test strip (test code = 5802-4) Leukocyte esterase [Presence] =2 negative H in Urine by Automated test strip (test code = 41783-8) Erythrocytes [#/volume] in =1-5 0-5 Urine by Automated count (test code = 798-9) Leukocytes [#/area] in Urine =15-19 0-5 H sediment by Automated count (test code = 14799-7) Epithelial cells [Presence] in =1-5 0-5 Urine sediment by Light microscopy (test code = 94231-7) Bacteria identified in Urine by none detected none detect Culture (test code = 630-4) Casts [#/area] in Urine =2-5 none detect sediment by Automated count (test code = 60310-8) urine culture added? (test code yes = urine culture added?) [facility] GroupUrinalysis complete panel - [id number] 03:09:00 Test Item Value Reference Range Interpretation Comments Color of Urine by Auto (test light yellow code = 79085-7) Appearance of Urine (test code clear clear = 5767-9) Glucose [Presence] in Urine by negative negative Automated test strip (test code = 91617-2) Bilirubin.total [Mass/volume] negative negative in Urine (test code = 1978-04) Ketones [Mass/volume] in Urine negative negative by Automated test strip (test code = 84934-9) Specific gravity of Urine by 1.004 1.003-1.030 Automated test strip (test code = 13276-1) blood urine (test code = blood trace negative urine) pH of Urine (test code = 5.500 5-9 2756-5) protein urine (UA) (test code = negative negative protein urine (UA)) Urobilinogen [Presence] in normal 0.2-1.0 Urine (test code = 06597-4) Nitrite [Presence] in Urine by negative negative Test strip (test code = 5802-4) Leukocyte esterase [Presence] =2 negative H in Urine by Automated test strip (test code = 33281-9) Erythrocytes [#/volume] in =1-5 0-5 Urine by Automated count (test code = 798-9) Leukocytes [#/area] in Urine =15-19 0-5 H sediment by Automated count (test code = 37465-6) Epithelial cells [Presence] in =1-5 0-5 Urine sediment by Light microscopy (test code = 89396-4) Bacteria identified in Urine by none detected none detect Culture (test code = 630-4) Casts [#/area] in Urine =2-5 none detect sediment by Automated count (test code = 16600-6) urine culture added? (test code yes = urine culture added?) [facility] GroupUrinalysis complete panel - [id number] 03:09:00 Test Item Value Reference Range Interpretation Comments Color of Urine by Auto (test light yellow code = 80806-3) Appearance of Urine (test code clear clear = 5767-9) Glucose [Presence] in Urine by negative negative Automated test strip (test code = 48791-8) Bilirubin.total [Mass/volume] negative negative in Urine (test code = 1978-6) Ketones [Mass/volume] in Urine negative negative by Automated test strip (test code = 68979-9) Specific gravity of Urine by 1.004 1.003-1.030 Automated test strip (test code = 20612-7) blood urine (test code = blood trace negative urine) pH of Urine (test code = 5.500 5-9 2756-5) protein urine (UA) (test code = negative negative protein urine (UA)) Urobilinogen [Presence] in normal 0.2-1.0 Urine (test code = 57979-5) Nitrite [Presence] in Urine by negative negative Test strip (test code = 5802-4) Leukocyte esterase [Presence] =2 negative H in Urine by Automated test strip (test code = 32157-5) Erythrocytes [#/volume] in =1-5 0-5 Urine by Automated count (test code = 798-9) Leukocytes [#/area] in Urine =15-19 0-5 H sediment by Automated count (test code = 81781-2) Epithelial cells [Presence] in =1-5 0-5 Urine sediment by Light microscopy (test code = 19823-1) Bacteria identified in Urine by none detected none detect Culture (test code = 630-4) Casts [#/area] in Urine =2-5 none detect sediment by Automated count (test code = 11322-3) urine culture added? (test code yes = urine culture added?) [facility] W Auto Differential panel - [id number] 02:35:00 Test Item Value Reference Range Interpretation Comments white blood count (test code = 11.7 K/uL 4.0-11.5 white blood count) red blood count (test code = red 2.62 M/uL 3.80-5.20 L blood count) hemoglobin (test code = 9.2 g/dL 10.5-15.7 L hemoglobin) hematocrit (test code = 27.6 % 34.0-50.0 L hematocrit) MCV [Entitic volume] (test code = 105.3 fL 86-100 H 32606-0) mean corpuscular hemoglobin (test 35.1 pg 26.2-33.4 [...] 44.4-80.1 leukocytes in Blood (test code = 89300-1) Immature granulocytes [#/volume] 0.0 K/uL 0.0-0.03 in Blood (test code = 23327-1) lymphocyte% (test code = 20.6 % 10.0-50.0 lymphocyte%) mono % (test code = mono %) 11.7 % 3.6-12.0 eos % (test code = eos %) 1.3 % 0.0-5.4 Basophils/100 leukocytes in 0.6 % 0.1-1.2 Unspecified specimen (test code = 78994-8) Band form neutrophils [#/volume] 7.65 K/uL 1.56-6.13 H in Blood (test code = 47241-4) Lymphocytes [#/volume] in 2.4 K/uL 1.18-3.74 Unspecified specimen by Automated count (test code = 90854-7) mono # (test code = mono #) 1.37 K/uL 0.24-0.86 H eos # (test code = eos #) 0.15 K/uL 0.04-0.36 basophil # (test code = basophil 0.07 K/uL 0.01-0.08 #) NRBC% (test code = NRBC%) 0 /100 WBC 0-0.2 NRBC# (test code = NRBC#) 0 K/uL [facility] unspecified - [id number] 02:35:00NeutrophilsBandLymphocyteAtypical LymphMonocyteEosinophilBasophilPlatelet EstimatePlatelet Morphology HypochromasiaPoikilocytosisAnisocytosisTarget CellsBurr CellsAcanthocytesHypersegmented PolysMatagoOcean Springs HospitalBasic metabolic 2000 panel - Serum or [id number] 02:35:00 Test Item Value Reference Range Interpretation [...] = 8.5 mg/dL 8.8-10.2 L calcium level) [facility] HospitalLactate [Mass/volume] in Serum or [id number] 02:35:00 Test Item Value Reference Range Interpretation Comments lactic acid (test code = lactic 1.01 mmol/L 0.5-2.2 acid) [facility]all[facility]cal2020-[facility] 02:35:00 Test Item Value Reference Range Interpretation Comments Procalcitonin [Mass/volume] in 22.8 NG/mL 0.0-0.8 H Serum or Plasma (test code = 72985-6) [facility] W Auto Differential panel - [id number] 02:35:00 Test Item Value Reference Range Interpretation Comments white blood count (test code = 11.7 K/uL 4.0-11.5 white blood count) red blood count (test code = red 2.62 M/uL 3.80-5.20 L blood count) hemoglobin (test code = 9.2 g/dL 10.5-15.7 L hemoglobin) hematocrit (test code = 27.6 % 34.0-50.0 L hematocrit) MCV [Entitic volume] (test code = 105.3 fL 86-100 H 61170-6) mean corpuscular hemoglobin (test 35.1 pg 26.2-33.4 [...] 44.4-80.1 leukocytes in Blood (test code = 49590-7) Immature granulocytes [#/volume] 0.0 K/uL 0.0-0.03 in Blood (test code = 53678-2) lymphocyte% (test code = 20.6 % 10.0-50.0 lymphocyte%) mono % (test code = mono %) 11.7 % 3.6-12.0 eos % (test code = eos %) 1.3 % 0.0-5.4 Basophils/100 leukocytes in 0.6 % 0.1-1.2 Unspecified specimen (test code = 58913-9) Band form neutrophils [#/volume] 7.65 K/uL 1.56-6.13 H in Blood (test code = 82263-9) Lymphocytes [#/volume] in 2.4 K/uL 1.18-3.74 Unspecified specimen by Automated count (test code = 81668-4) mono # (test code = mono #) 1.37 K/uL 0.24-0.86 H eos # (test code = eos #) 0.15 K/uL 0.04-0.36 basophil # (test code = basophil 0.07 K/uL 0.01-0.08 #) NRBC% (test code = NRBC%) 0 /100 WBC 0-0.2 NRBC# (test code = NRBC#) 0 K/uL [facility]Different[facility], method unspecified - [id number] 02:35:00NeutrophilsBandLymphocyteAtypical LymphMonocyteEosinophilBasophilPlatelet EstimatePlatelet Morphology HypochromasiaPoikilocytosisAnisocytosisTarget CellsBurr CellsAcanthocytesHypersegmented PolysMataCrossRoads Behavioral HealthBasic metabolic 2000 panel - Serum or [id number] 02:35:00 Test Item Value Reference Range Interpretation [...] = 8.5 mg/dL 8.8-10.2 L calcium level) [facility] HospitalLactate [Mass/volume] in Serum or [id number] 02:35:00 Test Item Value Reference Range Interpretation Comments lactic acid (test code = lactic 1.01 mmol/L 0.5-2.2 acid) [facility] Test Item Value Reference Range Interpretation Comments Procalcitonin [Mass/volume] in 22.8 NG/mL 0.0-0.8 H Serum or Plasma (test code = 89741-0) [facility] W Auto Differential panel - [id number] 02:35:00 Test Item Value Reference Range Interpretation Comments white blood count (test code = 11.7 K/uL 4.0-11.5 white blood count) red blood count (test code = red 2.62 M/uL 3.80-5.20 L blood count) hemoglobin (test code = 9.2 g/dL 10.5-15.7 L hemoglobin) hematocrit (test code = 27.6 % 34.0-50.0 L hematocrit) MCV [Entitic volume] (test code = 105.3 fL 86-100 H 77694-8) mean corpuscular hemoglobin (test 35.1 pg 26.2-33.4 [...] 44.4-80.1 leukocytes in Blood (test code = 93100-4) Immature granulocytes [#/volume] 0.0 K/uL 0.0-0.03 in Blood (test code = 20980-9) lymphocyte% (test code = 20.6 % 10.0-50.0 lymphocyte%) mono % (test code = mono %) 11.7 % 3.6-12.0 eos % (test code = eos %) 1.3 % 0.0-5.4 Basophils/100 leukocytes in 0.6 % 0.1-1.2 Unspecified specimen (test code = 80038-9) Band form neutrophils [#/volume] 7.65 K/uL 1.56-6.13 H in Blood (test code = 62448-0) Lymphocytes [#/volume] in 2.4 K/uL 1.18-3.74 Unspecified specimen by Automated count (test code = 30081-4) mono # (test code = mono #) 1.37 K/uL 0.24-0.86 H eos # (test code = eos #) 0.15 K/uL 0.04-0.36 basophil # (test code = basophil 0.07 K/uL 0.01-0.08 #) NRBC% (test code = NRBC%) 0 /100 WBC 0-0.2 NRBC# (test code = NRBC#) 0 K/uL [facility]Different[facility], method unspecified - [id number] 02:35:00NeutrophilsBandLymphocyteAtypical LymphMonocyteEosinophilBasophilPlatelet EstimatePlatelet Morphology HypochromasiaPoikilocytosisAnisocytosisTarget CellsBurr CellsAcanthocytesHypersegmented PolysMatagorda Medical GroupBasi metabolic 2000 panel - Serum or [id number] 02:35:00 Test Item Value Reference Range Interpretation [...] = 8.5 mg/dL 8.8-10.2 L calcium level) [facility] HospitalLactate [Mass/volume] in Serum or [id number] 02:35:00 Test Item Value Reference Range Interpretation Comments lactic acid (test code = lactic 1.01 mmol/L 0.5-2.2 acid) [facility] 02:[facility]00 Test Item Value Reference Range Interpretation Comments Procalcitonin [Mass/volume] in 22.8 NG/mL 0.0-0.8 H Serum or Plasma (test code = 24547-8) [facility] W Auto Differential panel - [id number] 02:35:00 Test Item Value Reference Range Interpretation Comments white blood count (test code = 11.7 K/uL 4.0-11.5 white blood count) red blood count (test code = red 2.62 M/uL 3.80-5.20 L blood count) hemoglobin (test code = 9.2 g/dL 10.5-15.7 L hemoglobin) hematocrit (test code = 27.6 % 34.0-50.0 L hematocrit) MCV [Entitic volume] (test code = 105.3 fL 86-100 H 60051-8) mean corpuscular hemoglobin (test 35.1 pg 26.2-33.4 [...] 44.4-80.1 leukocytes in Blood (test code = 19415-1) Immature granulocytes [#/volume] 0.0 K/uL 0.0-0.03 in Blood (test code = 86665-3) lymphocyte% (test code = 20.6 % 10.0-50.0 lymphocyte%) mono % (test code = mono %) 11.7 % 3.6-12.0 eos % (test code = eos %) 1.3 % 0.0-5.4 Basophils/100 leukocytes in 0.6 % 0.1-1.2 Unspecified specimen (test code = 51023-8) Band form neutrophils [#/volume] 7.65 K/uL 1.56-6.13 H in Blood (test code = 81281-3) Lymphocytes [#/volume] in 2.4 K/uL 1.18-3.74 Unspecified specimen by Automated count (test code = 88684-2) mono # (test code = mono #) 1.37 K/uL 0.24-0.86 H eos # (test code = eos #) 0.15 K/uL 0.04-0.36 basophil # (test code = basophil 0.07 K/uL 0.01-0.08 #) NRBC% (test code = NRBC%) 0 /100 WBC 0-0.2 NRBC# (test code = NRBC#) 0 K/uL [facility]Different[facility], method unspecified - [id number] 02:35:00NeutrophilsBandLymphocyteAtypical LymphMonocyteEosinophilBasophilPlatelet EstimatePlatelet Morphology HypochromasiaPoikilocytosisAnisocytosisTarget CellsBurr CellsAcanthocytesHypersegmented PolysMississippi State HospitalBasaint joseph berea metabolic 2000 panel - Serum or [id number] 02:35:00 Test Item Value Reference Range Interpretation [...] = 8.5 mg/dL 8.8-10.2 L calcium level) [facility] HospitalLactate [Mass/volume] in Serum or [id number] 02:35:00 Test Item Value Reference Range Interpretation Comments lactic acid (test code = lactic 1.01 mmol/L 0.5-2.2 acid) [facility] 02:35:00 Test Item Value Reference Range Interpretation Comments Procalcitonin [Mass/volume] in 22.8 NG/mL 0.0-0.8 H Serum or Plasma (test code = 20155-7) [facility] W Auto Differential panel - [id number] 02:02:00 Test Item Value Reference Range Interpretation Comments white blood count (test code = 15.2 K/uL 4.0-11.5 white blood count) red blood count (test code = red 2.87 M/uL 3.80-5.20 L blood count) hemoglobin (test code = 9.9 g/dL 10.5-15.7 L hemoglobin) hematocrit (test code = 30.4 % 34.0-50.0 L hematocrit) MCV [Entitic volume] (test code = 105.9 fL 86-100 H 72575-1) mean corpuscular hemoglobin (test 34.5 pg 26.2-33.4 [...] H leukocytes in Blood (test code = 45629-3) Immature granulocytes [#/volume] 0.1 K/uL 0.0-0.03 H in Blood (test code = 81315-9) lymphocyte% (test code = 11.4 % 10.0-50.0 lymphocyte%) mono % (test code = mono %) 7.6 % 3.6-12.0 eos % (test code = eos %) 0.1 % 0.0-5.4 Basophils/100 leukocytes in 0.3 % 0.1-1.2 Unspecified specimen (test code = 78122-8) Band form neutrophils [#/volume] 12.20 K/uL 1.56-6.13 H in Blood (test code = 26509-3) Lymphocytes [#/volume] in 1.7 K/uL 1.18-3.74 Unspecified specimen by Automated count (test code = 30289-5) mono # (test code = mono #) 1.15 K/uL 0.24-0.86 H eos # (test code = eos #) 0.01 K/uL 0.04-0.36 L basophil # (test code = basophil 0.05 K/uL 0.01-0.08 #) NRBC% (test code = NRBC%) 0 /100 WBC 0-0.2 NRBC# (test code = NRBC#) 0 K/uL [facility]Different[facility], method unspecified - [id number] 02:02:00NeutrophilsBandLymphocyteAtypical LymphMonocyteEosinophilPlatelet EstimatePlatelet MorphologyMaWalthall County General HospitalBasic metabolic 2000 panel - Serum or [id number] 02:02:00 Test Item Value Reference Range Interpretation [...] = 8.7 mg/dL 8.8-10.2 L calcium level) [facility] HospitalLactate [Mass/volume] in Serum or [id number] 02:02:00 Test Item Value Reference Range Interpretation Comments lactic acid (test code = lactic 2.32 mmol/L 0.5-2.2 H acid) [facility] 02:02:00 Test Item Value Reference Range Interpretation Comments Procalcitonin [Mass/volume] in 23.1 NG/mL 0.0-0.8 Serum or Plasma (test code = 12628-1) [facility] W Auto Differential panel - [id number] 02:02:00 Test Item Value Reference Range Interpretation Comments white blood count (test code = 15.2 K/uL 4.0-11.5 white blood count) red blood count (test code = red 2.87 M/uL 3.80-5.20 L blood count) hemoglobin (test code = 9.9 g/dL 10.5-15.7 L hemoglobin) hematocrit (test code = 30.4 % 34.0-50.0 L hematocrit) MCV [Entitic volume] (test code = 105.9 fL 86-100 H 08410-6) mean corpuscular hemoglobin (test 34.5 pg 26.2-33.4 [...] H leukocytes in Blood (test code = 75455-2) Immature granulocytes [#/volume] 0.1 K/uL 0.0-0.03 H in Blood (test code = 06944-4) lymphocyte% (test code = 11.4 % 10.0-50.0 lymphocyte%) mono % (test code = mono %) 7.6 % 3.6-12.0 eos % (test code = eos %) 0.1 % 0.0-5.4 Basophils/100 leukocytes in 0.3 % 0.1-1.2 Unspecified specimen (test code = 41917-1) Band form neutrophils [#/volume] 12.20 K/uL 1.56-6.13 H in Blood (test code = 56127-6) Lymphocytes [#/volume] in 1.7 K/uL 1.18-3.74 Unspecified specimen by Automated count (test code = 52660-5) mono # (test code = mono #) 1.15 K/uL 0.24-0.86 H eos # (test code = eos #) 0.01 K/uL 0.04-0.36 L basophil # (test code = basophil 0.05 K/uL 0.01-0.08 #) NRBC% (test code = NRBC%) 0 /100 WBC 0-0.2 NRBC# (test code = NRBC#) 0 K/uL [facility]Different[facility], method unspecified - [id number] 02:02:00NeutrophilsBandLymphocyteAtypical LymphMonocyteEosinophilPlatelet EstimatePlatelet MorphologyMaWalthall County General HospitalBasic metabolic 2000 panel - Serum or [id number] 02:02:00 Test Item Value Reference Range Interpretation [...] = 8.7 mg/dL 8.8-10.2 L calcium level) [facility] HospitalLactate [Mass/volume] in Serum or [id number] 02:02:00 Test Item Value Reference Range Interpretation Comments lactic acid (test code = lactic 2.32 mmol/L 0.5-2.2 H acid) [facility] 02:02:00 Test Item Value Reference Range Interpretation Comments Procalcitonin [Mass/volume] in 23.1 NG/mL 0.0-0.8 Serum or Plasma (test code = 87152-6) [facility] W Auto Differential panel - [id number] 02:02:00 Test Item Value Reference Range Interpretation Comments white blood count (test code = 15.2 K/uL 4.0-11.5 white blood count) red blood count (test code = red 2.87 M/uL 3.80-5.20 L blood count) hemoglobin (test code = 9.9 g/dL 10.5-15.7 L hemoglobin) hematocrit (test code = 30.4 % 34.0-50.0 L hematocrit) MCV [Entitic volume] (test code = 105.9 fL 86-100 H 40251-9) mean corpuscular hemoglobin (test 34.5 pg 26.2-33.4 [...] H leukocytes in Blood (test code = 12142-3) Immature granulocytes [#/volume] 0.1 K/uL 0.0-0.03 H in Blood (test code = 42268-4) lymphocyte% (test code = 11.4 % 10.0-50.0 lymphocyte%) mono % (test code = mono %) 7.6 % 3.6-12.0 eos % (test code = eos %) 0.1 % 0.0-5.4 Basophils/100 leukocytes in 0.3 % 0.1-1.2 Unspecified specimen (test code = 46941-0) Band form neutrophils [#/volume] 12.20 K/uL 1.56-6.13 H in Blood (test code = 63709-1) Lymphocytes [#/volume] in 1.7 K/uL 1.18-3.74 Unspecified specimen by Automated count (test code = 04223-3) mono # (test code = mono #) 1.15 K/uL 0.24-0.86 H eos # (test code = eos #) 0.01 K/uL 0.04-0.36 L basophil # (test code = basophil 0.05 K/uL 0.01-0.08 #) NRBC% (test code = NRBC%) 0 /100 WBC 0-0.2 NRBC# (test code = NRBC#) 0 K/uL [facility]Differential [facility], method unspecified - [id number] 02:02:00NeutrophilsBandLymphocyteAtypical LymphMonocyteEosinophilPlatelet EstimatePlatelet MorphologyMataCrossRoads Behavioral HealthBasic metabolic 2000 panel - Serum or [id number] 02:02:00 Test Item Value Reference Range Interpretation [...] = 8.7 mg/dL 8.8-10.2 L calcium level) [facility] HospitalLactate [Mass/volume] in Serum or [id number] 02:02:00 Test Item Value Reference Range Interpretation Comments lactic acid (test code = lactic 2.32 mmol/L 0.5-2.2 H acid) [facility] 02:02:00 Test Item Value Reference Range Interpretation Comments Procalcitonin [Mass/volume] in 23.1 NG/mL 0.0-0.8 Serum or Plasma (test code = 92542-0) [facility] HospitalCBC [facility] Auto Differential panel - [id number] 02:02:00 Test Item Value Reference Range Interpretation Comments white blood count (test code = 15.2 K/uL 4.0-11.5 white blood count) red blood count (test code = red 2.87 M/uL 3.80-5.20 L blood count) hemoglobin (test code = 9.9 g/dL 10.5-15.7 L hemoglobin) hematocrit (test code = 30.4 % 34.0-50.0 L hematocrit) MCV [Entitic volume] (test code = 105.9 fL 86-100 H 24294-1) mean corpuscular hemoglobin (test 34.5 pg 26.2-33.4 [...] H leukocytes in Blood (test code = 13199-1) Immature granulocytes [#/volume] 0.1 K/uL 0.0-0.03 H in Blood (test code = 94641-4) lymphocyte% (test code = 11.4 % 10.0-50.0 lymphocyte%) mono % (test code = mono %) 7.6 % 3.6-12.0 eos % (test code = eos %) 0.1 % 0.0-5.4 Basophils/100 leukocytes in 0.3 % 0.1-1.2 Unspecified specimen (test code = 16918-2) Band form neutrophils [#/volume] 12.20 K/uL 1.56-6.13 H in Blood (test code = 36356-5) Lymphocytes [#/volume] in 1.7 K/uL 1.18-3.74 Unspecified specimen by Automated count (test code = 47066-4) mono # (test code = mono #) 1.15 K/uL 0.24-0.86 H eos # (test code = eos #) 0.01 K/uL 0.04-0.36 L basophil # (test code = basophil 0.05 K/uL 0.01-0.08 #) NRBC% (test code = NRBC%) 0 /100 WBC 0-0.2 NRBC# (test code = NRBC#) 0 K/uL [facility]Different[facility], method unspecified - [id number] 02:02:00NeutrophilsBandLymphocyteAtypical LymphMonocyteEosinophilPlatelet EstimatePlatelet MorphologyMaWalthall County General HospitalBasi metabolic 2000 panel - Serum or [id number] 02:02:00 Test Item Value Reference Range Interpretation [...] = 8.7 mg/dL 8.8-10.2 L calcium level) [facility] HospitalLactate [Mass/volume] in Serum or [id number] 02:02:00 Test Item Value Reference Range Interpretation Comments lactic acid (test code = lactic 2.32 mmol/L 0.5-2.2 H acid) [facility] 02:02:00 Test Item Value Reference Range Interpretation Comments Procalcitonin [Mass/volume] in 23.1 NG/mL 0.0-0.8 Serum or Plasma (test code = 91038-2) [facility] HospitalUrinalysis complete panel - [id number] 09:18:00 Test Item Value Reference Range Interpretation Comments Color of Urine by Auto (test light yellow code = 26102-4) Appearance of Urine (test code = SL cloudy clear A 5767-9) Glucose [Presence] in Urine by negative negative Automated test strip (test code = 26017-7) Bilirubin.total [Mass/volume] in negative negative Urine (test code = 1978-6) Ketones [Mass/volume] in Urine negative negative by Automated test strip (test code = 45759-3) Specific gravity of Urine by 1.009 1.003-1.030 Automated test strip (test code = 13302-1) blood urine (test code = blood =1 negative H urine) pH of Urine (test code = 2756-5) 5.500 5-9 protein urine (UA) (test code = trace negative protein urine (UA)) Urobilinogen [Presence] in Urine normal 0.2-1.0 (test code = 92113-0) Nitrite [Presence] in Urine by negative negative Test strip (test code = 5802-4) Leukocyte esterase [Presence] in =4 negative H Urine by Automated test strip (test code = 45262-9) Erythrocytes [#/volume] in Urine =1-5 0-5 by Automated count (test code = 798-9) Leukocytes [#/area] in Urine >50 0-5 H sediment by Automated count (test code = 05522-7) Epithelial cells [Presence] in <1 0-5 Urine sediment by Light microscopy (test code = 85074-5) Bacteria identified in Urine by small(1 none detect Culture (test code = 630-4) Casts [#/area] in Urine sediment hyaline 0-5 none detect by Automated count (test code = 28768-0) urine culture added? (test code yes = urine culture added?) yeast, urine (test code = yeast, none seen none detect urine) path casts,U (test code = path none seen none detect casts,U) [facility] HospitalBacteria identified in Urine by [id number] 09:18:00 Test Item Value Reference Range Interpretation Comments Bacteria identified in mixed skin brett. no Urine by Culture (test pathogen present code = 630-4) after 2 days. [facility] HospitalUrinalysis complete panel - [id number] 09:18:00 Test Item Value Reference Range Interpretation Comments Color of Urine by Auto (test light yellow code = 94525-2) Appearance of Urine (test code = SL cloudy clear A 5767-9) Glucose [Presence] in Urine by negative negative Automated test strip (test code = 80615-1) Bilirubin.total [Mass/volume] in negative negative Urine (test code = 1978-6) Ketones [Mass/volume] in Urine negative negative by Automated test strip (test code = 39586-6) Specific gravity of Urine by 1.009 1.003-1.030 Automated test strip (test code = 50773-3) blood urine (test code = blood =1 negative H urine) pH of Urine (test code = 2756-5) 5.500 5-9 protein urine (UA) (test code = trace negative protein urine (UA)) Urobilinogen [Presence] in Urine normal 0.2-1.0 (test code = 98751-3) Nitrite [Presence] in Urine by negative negative Test strip (test code = 5802-4) Leukocyte esterase [Presence] in =4 negative H Urine by Automated test strip (test code = 06124-1) Erythrocytes [#/volume] in Urine =1-5 0-5 by Automated count (test code = 798-9) Leukocytes [#/area] in Urine >50 0-5 H sediment by Automated count (test code = 98973-7) Epithelial cells [Presence] in <1 0-5 Urine sediment by Light microscopy (test code = 09969-3) Bacteria identified in Urine by small(1 none detect Culture (test code = 630-4) Casts [#/area] in Urine sediment hyaline 0-5 none detect by Automated count (test code = 61945-2) urine culture added? (test code yes = urine culture added?) yeast, urine (test code = yeast, none seen none detect urine) path casts,U (test code = path none seen none detect casts,U) [facility] HospitalB[facility] identified in Urine by [id number] 09:18:00 Test Item Value Reference Range Interpretation Comments Bacteria identified in mixed skin brett. no Urine by Culture (test pathogen present code = 630-4) after 2 days. [facility] HospitalUr[facility] complete panel - [id number] 09:18:00 Test Item Value Reference Range Interpretation Comments Color of Urine by Auto (test light yellow code = 52588-8) Appearance of Urine (test code = SL cloudy clear A 5767-9) Glucose [Presence] in Urine by negative negative Automated test strip (test code = 78427-6) Bilirubin.total [Mass/volume] in negative negative Urine (test code = 1978-6) Ketones [Mass/volume] in Urine negative negative by Automated test strip (test code = 18479-7) Specific gravity of Urine by 1.009 1.003-1.030 Automated test strip (test code = 65331-3) blood urine (test code = blood =1 negative H urine) pH of Urine (test code = 2756-5) 5.500 5-9 protein urine (UA) (test code = trace negative protein urine (UA)) Urobilinogen [Presence] in Urine normal 0.2-1.0 (test code = 36965-9) Nitrite [Presence] in Urine by negative negative Test strip (test code = 5802-4) Leukocyte esterase [Presence] in =4 negative H Urine by Automated test strip (test code = 63540-2) Erythrocytes [#/volume] in Urine =1-5 0-5 by Automated count (test code = 798-9) Leukocytes [#/area] in Urine >50 0-5 H sediment by Automated count (test code = 54584-6) Epithelial cells [Presence] in <1 0-5 Urine sediment by Light microscopy (test code = 25230-2) Bacteria identified in Urine by small(1 none detect Culture (test code = 630-4) Casts [#/area] in Urine sediment hyaline 0-5 none detect by Automated count (test code = 41073-6) urine culture added? (test code yes = urine culture added?) yeast, urine (test code = yeast, none seen none detect urine) path casts,U (test code = path none seen none detect casts,U) [facility] identified in Urine by [id number] 09:18:00 Test Item Value Reference Range Interpretation Comments Bacteria identified in mixed skin brett. no Urine by Culture (test pathogen present code = 630-4) after 2 days. [facility]Ur[facility] complete [facility] - [id number] 09:18:00 Test Item Value Reference Range Interpretation Comments Color of Urine by Auto (test light yellow code = 06487-3) Appearance of Urine (test code = SL cloudy clear A 5767-9) Glucose [Presence] in Urine by negative negative Automated test strip (test code = 52558-3) Bilirubin.total [Mass/volume] in negative negative Urine (test code = 1978-6) Ketones [Mass/volume] in Urine negative negative by Automated test strip (test code = 98667-2) Specific gravity of Urine by 1.009 1.003-1.030 Automated test strip (test code = 37039-4) blood urine (test code = blood =1 negative H urine) pH of Urine (test code = 2756-5) 5.500 5-9 protein urine (UA) (test code = trace negative protein urine (UA)) Urobilinogen [Presence] in Urine normal 0.2-1.0 (test code = 49118-7) Nitrite [Presence] in Urine by negative negative Test strip (test code = 5802-4) Leukocyte esterase [Presence] in =4 negative H Urine by Automated test strip (test code = 98809-3) Erythrocytes [#/volume] in Urine =1-5 0-5 by Automated count (test code = 798-9) Leukocytes [#/area] in Urine >50 0-5 H sediment by Automated count (test code = 76076-0) Epithelial cells [Presence] in <1 0-5 Urine sediment by Light microscopy (test code = 07036-2) Bacteria identified in Urine by small(1 none detect Culture (test code = 630-4) Casts [#/area] in Urine sediment hyaline 0-5 none detect by Automated count (test code = 83583-0) urine culture added? (test code yes = urine culture added?) yeast, urine (test code = yeast, none seen none detect urine) path casts,U (test code = path none seen none detect casts,U) [facility] GroupBacteria identified in Urine by [id number] 09:18:00 Test Item Value Reference Range Interpretation Comments Bacteria identified in mixed skin brett. no Urine by Culture (test pathogen present code = 630-4) after 2 days. [facility] GroupLactate [Mass/volume] in Serum or [id number] 08:51:00 Test Item Value Reference Range Interpretation Comments lactic acid (test code = lactic 1.50 mmol/L 0.5-2.2 acid) [facility] GroupLactate [Mass/volume] in Serum or [id number] 08:51:00 Test Item Value Reference Range Interpretation Comments lactic acid (test code = lactic 1.50 mmol/L 0.5-2.2 acid) [facility] GroupLactate [Mass/volume] in Serum or [id number] 08:51:00 Test Item Value Reference Range Interpretation Comments lactic acid (test code = lactic 1.50 mmol/L 0.5-2.2 acid) [facility] GroupLactate [Mass/volume] in Serum or [id number] 08:51:00 Test Item Value Reference Range Interpretation Comments lactic acid (test code = lactic 1.50 mmol/L 0.5-2.2 acid) [facility] GroupLactate [Mass/volume] in Serum or [id number] 06:16:00 Test Item Value Reference Range Interpretation Comments lactic acid (test code = lactic 2.40 mmol/L 0.5-2.2 H acid) [facility] GroupLactate [Mass/volume] in Serum or [id number] 06:16:00 Test Item Value Reference Range Interpretation Comments lactic acid (test code = lactic 2.40 mmol/L 0.5-2.2 H acid) [facility] [Mass/volume] in Serum or [id number] 06:16:00 Test Item Value Reference Range Interpretation Comments lactic acid (test code = lactic 2.40 mmol/L 0.5-2.2 H acid) [facility] HospitalLactate [Mass/volume] in Serum or [id number] 06:16:00 Test Item Value Reference Range Interpretation Comments lactic acid (test code = lactic 2.40 mmol/L 0.5-2.2 H acid) [facility] W Auto Differential panel - [id number] 05:20:00 Test Item Value Reference Range Interpretation Comments white blood count (test code = 10.7 K/uL 4.0-11.5 white blood count) red blood count (test code = red 3.15 M/uL 3.80-5.20 L blood count) hemoglobin (test code = 11.0 g/dL 10.5-15.7 hemoglobin) hematocrit (test code = 32.9 % 34.0-50.0 L hematocrit) MCV [Entitic volume] (test code = 104.4 fL 86-100 H 83617-5) mean corpuscular hemoglobin (test 34.9 pg 26.2-33.4 [...] H leukocytes in Blood (test code = 01279-0) Immature granulocytes [#/volume] 0.1 K/uL 0.0-0.03 H in Blood (test code = 42290-7) lymphocyte% (test code = 8.2 % 10.0-50.0 L lymphocyte%) mono % (test code = mono %) 5.7 % 3.6-12.0 eos % (test code = eos %) 0.4 % 0.0-5.4 Basophils/100 leukocytes in 0.5 % 0.1-1.2 Unspecified specimen (test code = 85787-6) Band form neutrophils [#/volume] 9.04 K/uL 1.56-6.13 H in Blood (test code = 16066-4) Lymphocytes [#/volume] in 0.9 K/uL 1.18-3.74 L Unspecified specimen by Automated count (test code = 50848-3) mono # (test code = mono #) 0.61 K/uL 0.24-0.86 eos # (test code = eos #) 0.04 K/uL 0.04-0.36 basophil # (test code = basophil 0.05 K/uL 0.01-0.08 #) NRBC% (test code = NRBC%) 0 /100 WBC 0-0.2 NRBC# (test code = NRBC#) 0 K/uL [facility]Different[facility], method unspecified - [id number] 05:20:00NeutrophilsBandLymphocyteAtypical LymphMonocyteEosinophilPlatelet EstimatePlatelet MorphologyMaWalthall County General HospitalPT/[id number] 05:20:00 Test Item Value Reference Range Interpretation Comments prothrombin time (test code = 11.0 seconds 10.3-12.3 prothrombin time) INR in Blood by Coagulation 1.02 assay (test code = 12181-1) [facility]partial thromb[facility]in [id number] 05:20:00 Test Item Value Reference Range Interpretation Comments INR in Blood by Coagulation 35.0 seconds 22.5-37.0 assay (test code = 48947-3) [facility] HospitalComprehensive metabolic 2000 panel - Serum or [...] Serum or Plasma (test code = 6768-6) [facility] GroupMagnesium [Moles/volume] in Unspecified specimen 2020-01-25 05:20:00 Test Item Value Reference Range Interpretation Comments magnesium level (test code = 1.7 mg/dL 1.6-2.4 magnesium level) [facility] GroupNatriuretic peptide.B prohormone N-Terminal [Mass/volume] in Serum or [id number] 05:20:00 Test Item Value Reference Range Interpretation Comments N-term pro natriuretic peptide 1304 pg/mL 0-450 H (test code = N-term pro natriuretic peptide) [facility] GroupTroponin I.cardiac [Mass/volume] in [id number] 05:20:00 Test Item Value Reference Range Interpretation Comments cardiac troponin I (test code = cardiac <0.30 0.0-0.5 troponin I) [facility] Test Item Value Reference Range Interpretation Comments Procalcitonin [Mass/volume] in 0.9 NG/mL 0.0-0.8 H Serum or Plasma (test code = 96276-9) [facility] W Auto Differential panel - [id number] 05:20:00 Test Item Value Reference Range Interpretation Comments white blood count (test code = 10.7 K/uL 4.0-11.5 white blood count) red blood count (test code = red 3.15 M/uL 3.80-5.20 L blood count) hemoglobin (test code = 11.0 g/dL 10.5-15.7 hemoglobin) hematocrit (test code = 32.9 % 34.0-50.0 L hematocrit) MCV [Entitic volume] (test code = 104.4 fL 86-100 H 44219-1) mean corpuscular hemoglobin (test 34.9 pg 26.2-33.4 [...] H leukocytes in Blood (test code = 72102-8) Immature granulocytes [#/volume] 0.1 K/uL 0.0-0.03 H in Blood (test code = 63699-2) lymphocyte% (test code = 8.2 % 10.0-50.0 L lymphocyte%) mono % (test code = mono %) 5.7 % 3.6-12.0 eos % (test code = eos %) 0.4 % 0.0-5.4 Basophils/100 leukocytes in 0.5 % 0.1-1.2 Unspecified specimen (test code = 06567-1) Band form neutrophils [#/volume] 9.04 K/uL 1.56-6.13 H in Blood (test code = 30018-0) Lymphocytes [#/volume] in 0.9 K/uL 1.18-3.74 L Unspecified specimen by Automated count (test code = 16857-3) mono # (test code = mono #) 0.61 K/uL 0.24-0.86 eos # (test code = eos #) 0.04 K/uL 0.04-0.36 basophil # (test code = basophil 0.05 K/uL 0.01-0.08 #) NRBC% (test code = NRBC%) 0 /100 WBC 0-0.2 NRBC# (test code = NRBC#) 0 K/uL [facility]Different[facility], method unspecified - [id number] 05:20:00NeutrophilsBandLymphocyteAtypical LymphMonocyteEosinophilPlatelet EstimatePlatelet MorphologyMaWalthall County General HospitalPT/[id number] 05:20:00 Test Item Value Reference Range Interpretation Comments prothrombin time (test code = 11.0 seconds 10.3-12.3 prothrombin time) INR in Blood by Coagulation 1.02 assay (test code = 23843-1) [facility]partial thromb[facility]in [id number] 05:20:00 Test Item Value Reference Range Interpretation Comments INR in Blood by Coagulation 35.0 seconds 22.5-37.0 assay (test code = 07327-6) [facility] HospitalComprehensive [facility] 2000 panel - Serum or [...] Serum or Plasma (test code = 6768-6) [facility] GroupMagnesium [Moles/volume] in Unspecified specimen 2020-01-25 05:20:00 Test Item Value Reference Range Interpretation Comments magnesium level (test code = 1.7 mg/dL 1.6-2.4 magnesium level) [facility] HospitalNatriuretic peptide.B prohormone N-Terminal [Mass/volume] in Serum or [id number] 05:20:00 Test Item Value Reference Range Interpretation Comments N-term pro natriuretic peptide 1304 pg/mL 0-450 H (test code = N-term pro natriuretic peptide) [facility] HospitalTroponin I.cardiac [Mass/volume] in [id number] 05:20:00 Test Item Value Reference Range Interpretation Comments cardiac troponin I (test code = cardiac <0.30 0.0-0.5 troponin I) [facility] 05:20:00 Test Item Value Reference Range Interpretation Comments Procalcitonin [Mass/volume] in 0.9 NG/mL 0.0-0.8 H Serum or Plasma (test code = 37500-1) [facility] HospitalCB W Auto Differential panel - [id number] 05:20:00 Test Item Value Reference Range Interpretation Comments white blood count (test code = 10.7 K/uL 4.0-11.5 white blood count) red blood count (test code = red 3.15 M/uL 3.80-5.20 L blood count) hemoglobin (test code = 11.0 g/dL 10.5-15.7 hemoglobin) hematocrit (test code = 32.9 % 34.0-50.0 L hematocrit) MCV [Entitic volume] (test code = 104.4 fL 86-100 H 02772-4) mean corpuscular hemoglobin (test 34.9 pg 26.2-33.4 [...] H leukocytes in Blood (test code = 54301-5) Immature granulocytes [#/volume] 0.1 K/uL 0.0-0.03 H in Blood (test code = 02320-0) lymphocyte% (test code = 8.2 % 10.0-50.0 L lymphocyte%) mono % (test code = mono %) 5.7 % 3.6-12.0 eos % (test code = eos %) 0.4 % 0.0-5.4 Basophils/100 leukocytes in 0.5 % 0.1-1.2 Unspecified specimen (test code = 88523-4) Band form neutrophils [#/volume] 9.04 K/uL 1.56-6.13 H in Blood (test code = 97041-9) Lymphocytes [#/volume] in 0.9 K/uL 1.18-3.74 L Unspecified specimen by Automated count (test code = 81238-7) mono # (test code = mono #) 0.61 K/uL 0.24-0.86 eos # (test code = eos #) 0.04 K/uL 0.04-0.36 basophil # (test code = basophil 0.05 K/uL 0.01-0.08 #) NRBC% (test code = NRBC%) 0 /100 WBC 0-0.2 NRBC# (test code = NRBC#) 0 K/uL [facility] HospitalDifferential panel, method unspecified - [id number] 05:20:00NeutrophilsBandLymphocyteAtypical LymphMonocyteEosinophilPlatelet EstimatePlatelet MorphologyMataCrossRoads Behavioral HealthPT/[id number] 05:20:00 Test Item Value Reference Range Interpretation Comments prothrombin time (test code = 11.0 seconds 10.3-12.3 prothrombin time) INR in Blood by Coagulation 1.02 assay (test code = 83137-5) [facility]partial [facility] [id number] 05:20:00 Test Item Value Reference Range Interpretation Comments INR in Blood by Coagulation 35.0 seconds 22.5-37.0 assay (test code = 55544-4) [facility] HospitalCom[facility] 2000 panel - Serum or [...] Serum or Plasma (test code = 6768-6) [facility] HospitalMagnesium [Moles/volume] in Unspecified specimen 2020-01-25 05:20:00 Test Item Value Reference Range Interpretation Comments magnesium level (test code = 1.7 mg/dL 1.6-2.4 magnesium level) [facility] HospitalNatriuretic peptide.B prohormone N-Terminal [Mass/volume] in Serum or [id number] 05:20:00 Test Item Value Reference Range Interpretation Comments N-term pro natriuretic peptide 1304 pg/mL 0-450 H (test code = N-term pro natriuretic peptide) [facility] HospitalTroponin I.cardiac [Mass/volume] in [id number] 05:20:00 Test Item Value Reference Range Interpretation Comments cardiac troponin I (test code = cardiac <0.30 0.0-0.5 troponin I) [facility] 05:20:00 Test Item Value Reference Range Interpretation Comments Procalcitonin [Mass/volume] in 0.9 NG/mL 0.0-0.8 H Serum or Plasma (test code = 57158-9) [facility] W Auto Differential panel - [id number] 05:20:00 Test Item Value Reference Range Interpretation Comments white blood count (test code = 10.7 K/uL 4.0-11.5 white blood count) red blood count (test code = red 3.15 M/uL 3.80-5.20 L blood count) hemoglobin (test code = 11.0 g/dL 10.5-15.7 hemoglobin) hematocrit (test code = 32.9 % 34.0-50.0 L hematocrit) MCV [Entitic volume] (test code = 104.4 fL 86-100 H 46794-5) mean corpuscular hemoglobin (test 34.9 pg 26.2-33.4 [...] H leukocytes in Blood (test code = 93946-1) Immature granulocytes [#/volume] 0.1 K/uL 0.0-0.03 H in Blood (test code = 28895-0) lymphocyte% (test code = 8.2 % 10.0-50.0 L lymphocyte%) mono % (test code = mono %) 5.7 % 3.6-12.0 eos % (test code = eos %) 0.4 % 0.0-5.4 Basophils/100 leukocytes in 0.5 % 0.1-1.2 Unspecified specimen (test code = 26657-6) Band form neutrophils [#/volume] 9.04 K/uL 1.56-6.13 H in Blood (test code = 76312-2) Lymphocytes [#/volume] in 0.9 K/uL 1.18-3.74 L Unspecified specimen by Automated count (test code = 75350-1) mono # (test code = mono #) 0.61 K/uL 0.24-0.86 eos # (test code = eos #) 0.04 K/uL 0.04-0.36 basophil # (test code = basophil 0.05 K/uL 0.01-0.08 #) NRBC% (test code = NRBC%) 0 /100 WBC 0-0.2 NRBC# (test code = NRBC#) 0 K/uL [facility] HospitalDifferential panel, method unspecified - [id number] 05:20:00NeutrophilsBandLymphocyteAtypical LymphMonocyteEosinophilPlatelet EstimatePlatelet MorphologyMaWalthall County General HospitalPT/[id number] 05:20:00 Test Item Value Reference Range Interpretation Comments prothrombin time (test code = 11.0 seconds 10.3-12.3 prothrombin time) INR in Blood by Coagulation 1.02 assay (test code = 85753-4) [facility]partial [facility]in [id number] 05:20:00 Test Item Value Reference Range Interpretation Comments INR in Blood by Coagulation 35.0 seconds 22.5-37.0 assay (test code = 76814-0) [facility] HospitalComprehensive [facility] 2000 panel - Serum or [...] Serum or Plasma (test code = 6768-6) [facility] HospitalMagnesium [Moles/volume] in Unspecified specimen 2020-01-25 05:20:00 Test Item Value Reference Range Interpretation Comments magnesium level (test code = 1.7 mg/dL 1.6-2.4 magnesium level) [facility] HospitalNatriuretic peptide.B prohormone N-Terminal [Mass/volume] in Serum or [id number] 05:20:00 Test Item Value Reference Range Interpretation Comments N-term pro natriuretic peptide 1304 pg/mL 0-450 H (test code = N-term pro natriuretic peptide) [facility] HospitalTroponin I.cardiac [Mass/volume] in [id number] 05:20:00 Test Item Value Reference Range Interpretation Comments cardiac troponin I (test code = cardiac <0.30 0.0-0.5 troponin I) [facility] 05:20:00 Test Item Value Reference Range Interpretation Comments Procalcitonin [Mass/volume] in 0.9 NG/mL 0.0-0.8 H Serum or Plasma (test code = 43392-0) [facility] panel - Arterial [id number] 05:00:00 Test Item Value Reference Range Interpretation Comments pH of Arterial blood (test code = 7.45 7.35-7.45 2744-1) Carbon dioxide [Partial pressure] 30 mmHg 35-45 L in Arterial blood (test code = 2018-) Oxygen [Partial pressure] in 132 mmHg 75-100 [...] Arterial blood 7.1 mmol/L (test code = 62312-8) [facility] panel - Arterial [id number] 05:00:00 Test Item Value Reference Range Interpretation [...] Arterial blood 7.1 mmol/L (test code = 49183-6) [facility] panel - Arterial [id number] 05:00:00 Test Item Value Reference Range Interpretation Comments pH of Arterial blood (test code = 7.45 7.35-7.45 2744-1) Carbon dioxide [Partial pressure] 30 mmHg 35-45 L in Arterial blood (test code = 2018-) Oxygen [Partial pressure] in 132 mmHg 75-100 [...] Arterial blood 7.1 mmol/L (test code = 24505-3) [facility]ial [id number] 05:00:00 Test Item Value Reference Range Interpretation [...] Arterial blood 7.1 mmol/L (test code = 83698-0) [facility] HospitalLjatikpjxcmbya1671-66-44 03:51:00 Test Item Value Reference Range Interpretation Comments Adenovirus Ab [Presence] in not detected not detect Unspecified specimen (test code = 46926-0) Coronavirus Ab [Units/volume] in detected not detect A Serum (test code = 5099-7) Human metapneumovirus RNA not detected not detect [Presence] in Unspecified specimen by [place] with probe detection (test code = 75991-3) Rhinovirus+Enterovirus RNA not detected not detect [Presence] in Unspecified specimen by [place] with probe detection (test code = 96588-8) Influenza virus A Ag [Presence] not detected not detect in Unspecified specimen (test code = 01817-3) Influenza virus A H1 2009 not detected not detect pandemic RNA [Presence] in Unspecified specimen by [place] with probe detection (test code = 47102-7) Influenza virus A H3 RNA not detected not detect [Presence] in Isolate by [place] with probe detection (test code = 96575-9) Influenza virus B Ag [Presence] not detected not detect in Unspecified specimen (test code = 11836-5) Parainfluenza virus 1 Ab [Titer] not detected not detect in Serum by Complement fixation (test code = 5268-8) Parainfluenza virus 2 Ab [Titer] not detected not detect in Serum by Complement fixation (test code = 5269-6) Parainfluenza virus 3 RNA not detected not detect [Presence] in Isolate by [place] with probe detection (test code = 68998-1) Parainfluenza virus 4 RNA not detected not detect [Presence] in Unspecified specimen by [place] with probe detection (test code = 54539-4) resp syn virus A (test code = not detected not detect resp syn virus A) resp syn virus B (test code = not detected not detect resp syn virus B) Chlamydophila pneumoniae DNA not detected not detect [Presence] in Unspecified specimen by [place] with probe detection (test code = 28902-5) Mycoplasma pneumoniae IgG and not detected not detect IgM panel - Serum (test code = 75809-8) [facility] HospitalPrhijnufvmbmgz0807-77-00 03:51:00 Test Item Value Reference Range Interpretation Comments Adenovirus Ab [Presence] in not detected not detect Unspecified specimen (test code = 28580-8) Coronavirus Ab [Units/volume] in detected not detect A Serum (test code = 5099-7) Human metapneumovirus RNA not detected not detect [Presence] in Unspecified specimen by [place] with probe detection (test code = 00371-8) Rhinovirus+Enterovirus RNA not detected not detect [Presence] in Unspecified specimen by [place] with probe detection (test code = 54595-9) Influenza virus A Ag [Presence] not detected not detect in Unspecified specimen (test code = 90596-8) Influenza virus A H1 2009 not detected not detect pandemic RNA [Presence] in Unspecified specimen by [place] with probe detection (test code = 22397-3) Influenza virus A H3 RNA not detected not detect [Presence] in Isolate by [place] with probe detection (test code = 26742-7) Influenza virus B Ag [Presence] not detected not detect in Unspecified specimen (test code = 28624-5) Parainfluenza virus 1 Ab [Titer] not detected not detect in Serum by Complement fixation (test code = 5268-8) Parainfluenza virus 2 Ab [Titer] not detected not detect in Serum by Complement fixation (test code = 5269-6) Parainfluenza virus 3 RNA not detected not detect [Presence] in Isolate by [place] with probe detection (test code = 46042-2) Parainfluenza virus 4 RNA not detected not detect [Presence] in Unspecified specimen by [place] with probe detection (test code = 80852-0) resp syn virus A (test code = not detected not detect resp syn virus A) resp syn virus B (test code = not detected not detect resp syn virus B) Chlamydophila pneumoniae DNA not detected not detect [Presence] in Unspecified specimen by [place] with probe detection (test code = 63953-7) Mycoplasma pneumoniae IgG and not detected not detect IgM panel - Serum (test code = 75848-8) [facility] HospitalQubyrztvsdgcuo4326-87-35 03:51:00 Test Item Value Reference Range Interpretation Comments Adenovirus Ab [Presence] in not detected not detect Unspecified specimen (test code = 25216-2) Coronavirus Ab [Units/volume] in detected not detect A Serum (test code = 5099-7) Human metapneumovirus RNA not detected not detect [Presence] in Unspecified specimen by [place] with probe detection (test code = 97722-6) Rhinovirus+Enterovirus RNA not detected not detect [Presence] in Unspecified specimen by [place] with probe detection (test code = 67448-9) Influenza virus A Ag [Presence] not detected not detect in Unspecified specimen (test code = 20787-9) Influenza virus A H1 2009 not detected not detect pandemic RNA [Presence] in Unspecified specimen by [place] with probe detection (test code = 21493-6) Influenza virus A H3 RNA not detected not detect [Presence] in Isolate by [place] with probe detection (test code = 37236-0) Influenza virus B Ag [Presence] not detected not detect in Unspecified specimen (test code = 46136-8) Parainfluenza virus 1 Ab [Titer] not detected not detect in Serum by Complement fixation (test code = 5268-8) Parainfluenza virus 2 Ab [Titer] not detected not detect in Serum by Complement fixation (test code = 5269-6) Parainfluenza virus 3 RNA not detected not detect [Presence] in Isolate by [place] with probe detection (test code = 33785-1) Parainfluenza virus 4 RNA not detected not detect [Presence] in Unspecified specimen by [place] with probe detection (test code = 37657-6) resp syn virus A (test code = not detected not detect resp syn virus A) resp syn virus B (test code = not detected not detect resp syn virus B) Chlamydophila pneumoniae DNA not detected not detect [Presence] in Unspecified specimen by [place] with probe detection (test code = 83869-8) Mycoplasma pneumoniae IgG and not detected not detect IgM panel - Serum (test code = 59417-9) [facility] HospitalJdyrnjbynlinge2206-81-59 03:51:00 Test Item Value Reference Range Interpretation Comments Adenovirus Ab [Presence] in not detected not detect Unspecified specimen (test code = 72365-7) Coronavirus Ab [Units/volume] in detected not detect A Serum (test code = 5099-7) Human metapneumovirus RNA not detected not detect [Presence] in Unspecified specimen by [place] with probe detection (test code = 36625-8) Rhinovirus+Enterovirus RNA not detected not detect [Presence] in Unspecified specimen by [place] with probe detection (test code = 67207-9) Influenza virus A Ag [Presence] not detected not detect in Unspecified specimen (test code = 72545-6) Influenza virus A H1 2009 not detected not detect pandemic RNA [Presence] in Unspecified specimen by [place] with probe detection (test code = 23848-9) Influenza virus A H3 RNA not detected not detect [Presence] in Isolate by [place] with probe detection (test code = 78659-4) Influenza virus B Ag [Presence] not detected not detect in Unspecified specimen (test code = 81412-4) Parainfluenza virus 1 Ab [Titer] not detected not detect in Serum by Complement fixation (test code = 5268-8) Parainfluenza virus 2 Ab [Titer] not detected not detect in Serum by Complement fixation (test code = 5269-6) Parainfluenza virus 3 RNA not detected not detect [Presence] in Isolate by [place] with probe detection (test code = 80367-2) Parainfluenza virus 4 RNA not detected not detect [Presence] in Unspecified specimen by [place] with probe detection (test code = 23805-1) resp syn virus A (test code = not detected not detect resp syn virus A) resp syn virus B (test code = not detected not detect resp syn virus B) Chlamydophila pneumoniae DNA not detected not detect [Presence] in Unspecified specimen by [place] with probe detection (test code = 36819-8) Mycoplasma pneumoniae IgG and not detected not detect IgM panel - Serum (test code = 89876-6) [facility] HospitalCzatfbqomzitir7234-16-86 03:51:00 Test Item Value Reference Range Interpretation Comments Adenovirus Ab [Presence] in not detected not detect Unspecified specimen (test code = 07570-0) Coronavirus Ab [Units/volume] in detected not detect A Serum (test code = 5099-7) Human metapneumovirus RNA not detected not detect [Presence] in Unspecified specimen by [place] with probe detection (test code = 67116-1) Rhinovirus+Enterovirus RNA not detected not detect [Presence] in Unspecified specimen by [place] with probe detection (test code = 95453-8) Influenza virus A Ag [Presence] not detected not detect in Unspecified specimen (test code = 75734-3) Influenza virus A H1 2009 not detected not detect pandemic RNA [Presence] in Unspecified specimen by [place] with probe detection (test code = 64469-5) Influenza virus A H3 RNA not detected not detect [Presence] in Isolate by [place] with probe detection (test code = 93491-9) Influenza virus B Ag [Presence] not detected not detect in Unspecified specimen (test code = 04367-7) Parainfluenza virus 1 Ab [Titer] not detected not detect in Serum by Complement fixation (test code = 5268-8) Parainfluenza virus 2 Ab [Titer] not detected not detect in Serum by Complement fixation (test code = 5269-6) Parainfluenza virus 3 RNA not detected not detect [Presence] in Isolate by [place] with probe detection (test code = 25093-0) Parainfluenza virus 4 RNA not detected not detect [Presence] in Unspecified specimen by [place] with probe detection (test code = 53408-5) resp syn virus A (test code = not detected not detect resp syn virus A) resp syn virus B (test code = not detected not detect resp syn virus B) Chlamydophila pneumoniae DNA not detected not detect [Presence] in Unspecified specimen by [place] with probe detection (test code = 50499-3) Mycoplasma pneumoniae IgG and not detected not detect IgM panel - Serum (test code = 25553-7) [facility] Test Item Value Reference Range Interpretation Comments Adenovirus Ab [Presence] in not detected not detect Unspecified specimen (test code = 93955-2) Coronavirus Ab [Units/volume] in detected not detect A Serum (test code = 5099-7) Human metapneumovirus RNA not detected not detect [Presence] in Unspecified specimen by [place] with probe detection (test code = 46613-0) Rhinovirus+Enterovirus RNA not detected not detect [Presence] in Unspecified specimen by [place] with probe detection (test code = 44763-9) Influenza virus A Ag [Presence] not detected not detect in Unspecified specimen (test code = 25636-7) Influenza virus A H1 2009 not detected not detect pandemic RNA [Presence] in Unspecified specimen by [place] with probe detection (test code = 15685-1) Influenza virus A H3 RNA not detected not detect [Presence] in Isolate by [place] with probe detection (test code = 40196-8) Influenza virus B Ag [Presence] not detected not detect in Unspecified specimen (test code = 82291-1) Parainfluenza virus 1 Ab [Titer] not detected not detect in Serum by Complement fixation (test code = 5268-8) Parainfluenza virus 2 Ab [Titer] not detected not detect in Serum by Complement fixation (test code = 5269-6) Parainfluenza virus 3 RNA not detected not detect [Presence] in Isolate by [place] with probe detection (test code = 73716-2) Parainfluenza virus 4 RNA not detected not detect [Presence] in Unspecified specimen by [place] with probe detection (test code = 28706-1) resp syn virus A (test code = not detected not detect resp syn virus A) resp syn virus B (test code = not detected not detect resp syn virus B) Chlamydophila pneumoniae DNA not detected not detect [Presence] in Unspecified specimen by [place] with probe detection (test code = 75987-7) Mycoplasma pneumoniae IgG and not detected not detect IgM panel - Serum (test code = 83631-9) [facility] HospitalBmfunkseaovaux3854-11-36 03:51:00 Test Item Value Reference Range Interpretation Comments Adenovirus Ab [Presence] in not detected not detect Unspecified specimen (test code = 54972-1) Coronavirus Ab [Units/volume] in detected not detect A Serum (test code = 5099-7) Human metapneumovirus RNA not detected not detect [Presence] in Unspecified specimen by [place] with probe detection (test code = 94377-0) Rhinovirus+Enterovirus RNA not detected not detect [Presence] in Unspecified specimen by [place] with probe detection (test code = 27067-2) Influenza virus A Ag [Presence] not detected not detect in Unspecified specimen (test code = 09273-5) Influenza virus A H1 2009 not detected not detect pandemic RNA [Presence] in Unspecified specimen by [place] with probe detection (test code = 94766-2) Influenza virus A H3 RNA not detected not detect [Presence] in Isolate by [place] with probe detection (test code = 06569-7) Influenza virus B Ag [Presence] not detected not detect in Unspecified specimen (test code = 90156-6) Parainfluenza virus 1 Ab [Titer] not detected not detect in Serum by Complement fixation (test code = 5268-8) Parainfluenza virus 2 Ab [Titer] not detected not detect in Serum by Complement fixation (test code = 5269-6) Parainfluenza virus 3 RNA not detected not detect [Presence] in Isolate by [place] with probe detection (test code = 46291-7) Parainfluenza virus 4 RNA not detected not detect [Presence] in Unspecified specimen by [place] with probe detection (test code = 54962-5) resp syn virus A (test code = not detected not detect resp syn virus A) resp syn virus B (test code = not detected not detect resp syn virus B) Chlamydophila pneumoniae DNA not detected not detect [Presence] in Unspecified specimen by [place] with probe detection (test code = 01121-5) Mycoplasma pneumoniae IgG and not detected not detect IgM panel - Serum (test code = 52994-8) [id number]00 Test Item Value Reference Range Interpretation Comments Adenovirus Ab [Presence] in not detected not detect Unspecified specimen (test code = 14287-5) Coronavirus Ab [Units/volume] in detected not detect A Serum (test code = 5099-7) Human metapneumovirus RNA not detected not detect [Presence] in Unspecified specimen by [place] with probe detection (test code = 61799-0) Rhinovirus+Enterovirus RNA not detected not detect [Presence] in Unspecified specimen by [place] with probe detection (test code = 77239-5) Influenza virus A Ag [Presence] not detected not detect in Unspecified specimen (test code = 13073-3) Influenza virus A H1 2009 not detected not detect pandemic RNA [Presence] in Unspecified specimen by [place] with probe detection (test code = 13228-6) Influenza virus A H3 RNA not detected not detect [Presence] in Isolate by [place] with probe detection (test code = 14306-5) Influenza virus B Ag [Presence] not detected not detect in Unspecified specimen (test code = 47848-8) Parainfluenza virus 1 Ab [Titer] not detected not detect in Serum by Complement fixation (test code = 5268-8) Parainfluenza virus 2 Ab [Titer] not detected not detect in Serum by Complement fixation (test code = 5269-6) Parainfluenza virus 3 RNA not detected not detect [Presence] in Isolate by CAROILNA with probe detection (test code = 11091-6) Parainfluenza virus 4 RNA not detected not detect [Presence] in Unspecified specimen by [place] with probe detection (test code = 08899-2) resp syn virus A (test code = not detected not detect resp syn virus A) resp syn virus B (test code = not detected not detect resp syn virus B) Chlamydophila pneumoniae DNA not detected not detect [Presence] in Unspecified specimen by [place] with probe detection (test code = 80732-8) Mycoplasma pneumoniae IgG and not detected not detect IgM panel - Serum (test code = 57846-4) [facility] W Auto Differential panel - [id number] 09:12:00 Test Item Value Reference Range Interpretation Comments white blood count (test code = 6.3 K/uL 4.0-11.5 white blood count) red blood count (test code = red 3.25 M/uL 3.80-5.20 L blood count) hemoglobin (test code = 11.1 g/dL 10.5-15.7 hemoglobin) hematocrit (test code = 35.2 % 34.0-50.0 hematocrit) Erythrocyte mean corpuscular 108.3 fL 86-100 H volume [Entitic volume] (test code = 91236-8) mean corpuscular hemoglobin (test 34.2 pg 26.2-33.4 [...] 44.4-80.1 leukocytes in Blood (test code = 94626-7) Granulocytes Immature [#/volume] 0.0 K/uL 0.0-0.03 in Blood (test code = 01686-6) lymphocyte% (test code = 33.1 % 10.0-50.0 lymphocyte%) mono % (test code = mono %) 11.1 % 3.6-12.0 eos % (test code = eos %) 2.7 % 0.0-5.4 Basophils/100 leukocytes in 1.0 % 0.1-1.2 Unspecified specimen (test code = 38453-2) Neutrophils.band form [#/volume] 3.25 K/uL 1.56-6.13 in Blood (test code = 84782-6) Lymphocytes [#/volume] in 2.1 K/uL 1.18-3.74 Unspecified specimen by Automated count (test code = 47066-6) mono # (test code = mono #) 0.70 K/uL 0.24-0.86 eos # (test code = eos #) 0.17 K/uL 0.04-0.36 basophil # (test code = basophil 0.06 K/uL 0.01-0.08 #) NRBC% (test code = NRBC%) 0 /100 WBC 0-0.2 NRBC# (test code = NRBC#) 0 K/uL [facility], [id number] 09:12:00 NeutrophilsBandLymphocyteAtypical LymphMonocyteEosinophilBasophilMetamyelocyteMyelocytePlatelet EstimatePlatelet MorphologyRouleauDifferential comment-[facility] W Auto Differential panel - [id number] 09:12:00 Test Item Value Reference Range Interpretation Comments white blood count (test code = 6.3 K/uL 4.0-11.5 white blood count) red blood count (test code = red 3.25 M/uL 3.80-5.20 L blood count) hemoglobin (test code = 11.1 g/dL 10.5-15.7 hemoglobin) hematocrit (test code = 35.2 % 34.0-50.0 hematocrit) MCV [Entitic volume] (test code = 108.3 fL 86-100 H 72604-2) mean corpuscular hemoglobin (test 34.2 pg 26.2-33.4 [...] 44.4-80.1 leukocytes in Blood (test code = 90496-9) Immature granulocytes [#/volume] 0.0 K/uL 0.0-0.03 in Blood (test code = 14232-2) lymphocyte% (test code = 33.1 % 10.0-50.0 lymphocyte%) mono % (test code = mono %) 11.1 % 3.6-12.0 eos % (test code = eos %) 2.7 % 0.0-5.4 Basophils/100 leukocytes in 1.0 % 0.1-1.2 Unspecified specimen (test code = 68761-5) Band form neutrophils [#/volume] 3.25 K/uL 1.56-6.13 in Blood (test code = 33529-7) Lymphocytes [#/volume] in 2.1 K/uL 1.18-3.74 Unspecified specimen by Automated count (test code = 04906-6) mono # (test code = mono #) 0.70 K/uL 0.24-0.86 eos # (test code = eos #) 0.17 K/uL 0.04-0.36 basophil # (test code = basophil 0.06 K/uL 0.01-0.08 #) NRBC% (test code = NRBC%) 0 /100 WBC 0-0.2 NRBC# (test code = NRBC#) 0 K/uL [facility], method unspecified - [id number] 09:12:00NeutrophilsBandLymphocyteAtypical LymphMonocyteEosinophilBasophilMetamyelocyteMyelocytePlatelet EstimatePlatelet MorphologyRouleauDifferential comment-[facility] GroupBacteria identified in Urine by [id number] 03:01:00 Test Item Value Reference Range Interpretation Comments Bacteria identified in no growth after 2 Urine by Culture (test days. code = 630-4) [facility] GroupBacteria identified in Urine by [id number] 03:01:00 Test Item Value Reference Range Interpretation Comments Bacteria identified in no growth after 2 Urine by Culture (test days. code = 630-4) [facility] GroupUrinalysis complete W Reflex Culture panel - Urine 2019-12-30 11:45:00 Test Item Value Reference Range Interpretation Comments Color of Urine by Auto (test yellow code = 05110-7) Appearance of Urine (test code clear clear = 5767-9) Glucose [Mass/volume] in Urine negative negative (test code = 2350-7) bilirubin, urine (test code = negative negative bilirubin, urine) ketone, urine (test code = negative negative ketone, urine) Specific gravity of Urine by 1.010 1.003-1.030 Automated test strip (test code = 95133-1) Hemoglobin [Presence] in Urine negative negative by Test strip (test code = 5794-3) pH of Urine (test code = 6.000 5-9 2756-5) protein urine (UA) (test code = negative negative protein urine (UA)) Urobilinogen [Presence] in 0.2 E.U./dL 0.2-1.0 Urine (test code = 39780-4) Nitrite [Presence] in Urine by negative negative Test strip (test code = 5802-4) urine leukocyte esterase (test negative negative code = urine leukocyte esterase) Erythrocytes [Presence] in none seen 0-5 Urine (test code = 68292-8) WBC, urine (test code = WBC, =0-5 0-5 urine) Epithelial cells [Presence] in =0-5 0-5 Urine sediment by Light microscopy (test code = 86772-5) bacteria, urine (test code = none detected none detect bacteria, urine) Casts [#/area] in Urine none seen none detect sediment by Automated count (test code = 98992-7) urine culture added? (test code no = urine culture added?) [facility] GroupUrinal[facility] complete W Reflex Culture panel - Urine 2019-12-30 11:45:00 Test Item Value Reference Range Interpretation Comments Color of Urine by Auto (test yellow code = 10022-4) Appearance of Urine (test code clear clear = 5767-9) Glucose [Mass/volume] in Urine negative negative (test code = 2350-7) bilirubin, urine (test code = negative negative bilirubin, urine) ketone, urine (test code = negative negative ketone, urine) Specific gravity of Urine by 1.010 1.003-1.030 Automated test strip (test code = 75676-7) Hemoglobin [Presence] in Urine negative negative by Test strip (test code = 5794-3) pH of Urine (test code = 6.000 5-9 2756-5) protein urine (UA) (test code = negative negative protein urine (UA)) Urobilinogen [Presence] in 0.2 E.U./dL 0.2-1.0 Urine (test code = 58283-0) Nitrite [Presence] in Urine by negative negative Test strip (test code = 5802-4) urine leukocyte esterase (test negative negative code = urine leukocyte esterase) Erythrocytes [Presence] in none seen 0-5 Urine (test code = 52121-4) WBC, urine (test code = WBC, =0-5 0-5 urine) Epithelial cells [Presence] in =0-5 0-5 Urine sediment by Light microscopy (test code = 75186-4) bacteria, urine (test code = none detected none detect bacteria, urine) Casts [#/area] in Urine none seen none detect sediment by Automated count (test code = 33835-2) urine culture added? (test code no = urine culture added?) [facility] Urine by [id number] 03:40:00Bacteria Ur [facility] GroupBacteria identified in Wound by [id number] 01:45:00[facility], [id number] 01:45:00 Test Item Value Reference Range Interpretation [...] Minimum inhibitory concentration (YUNG) (test code = 27891-7) Ceftriaxone [Susceptibility] by 32 ug/mL Minimum inhibitory concentration (YUNG) (test code = 141-2) Imipenem [Susceptibility] by Minimum <4 inhibitory concentration (YUNG) (test code = 279-0) Ampicillin+Sulbactam =16/8 [Susceptibility] by Minimum inhibitory concentration (YUNG) (test code = 32-3) Linezolid [Susceptibility] by 2 ug/mL Minimum inhibitory concentration (YUNG) (test code = 09679-7) Meropenem [Susceptibility] by <4 Minimum inhibitory concentration (YUNG) (test code = 6652-2) Daptomycin [Susceptibility] by <0.5 Minimum inhibitory concentration (YUNG) (test code = 17722-8) Rifampin [Susceptibility] by Minimum <1 inhibitory concentration (YUNG) (test code = 428-3) [facility] HospitalUrinalysis complete panel - [id number] 05:17:00 Test Item Value Reference Range Interpretation Comments Color of Urine by Auto (test light yellow code = 62580-6) Appearance of Urine (test SL cloudy clear A code = 5767-9) Glucose [Presence] in Urine negative negative by Automated test strip (test code = 09349-7) Bilirubin.total [Mass/volume] negative negative in Urine (test code = 1977-6) Ketones [Mass/volume] in negative negative Urine by Automated test strip (test code = 39390-2) Specific gravity of Urine by 1.015 1.003-1.030 Automated test strip (test code = 11367-3) blood urine (test code = trace negative blood urine) pH of Urine (test code = 5.500 5-9 2756-5) protein urine (UA) (test code trace negative = protein urine (UA)) Urobilinogen [Presence] in normal 0.2-1.0 Urine (test code = 86109-7) Nitrite [Presence] in Urine negative negative by Test strip (test code = 5802-4) Leukocyte esterase [Presence] =4 negative H in Urine by Automated test strip (test code = 24772-3) Erythrocytes [#/volume] in =1-5 0-5 Urine by Automated count (test code = 798-9) Leukocytes [#/area] in Urine >50 0-5 H sediment by Automated count (test code = 01348-4) Epithelial cells [Presence] <1 0-5 in Urine sediment by Light microscopy (test code = 97749-1) Bacteria identified in Urine tntc (4 none detect H by Culture (test code = 630-4) Casts [#/area] in Urine =6-10 none detect H sediment by Automated count (test code = 46856-0) urine culture added? (test already ordered code = urine culture added?) [facility] W Auto Differential panel - [id number] 04:19:00 Test Item Value Reference Range Interpretation Comments white blood count (test code = 8.8 K/uL 4.0-11.5 white blood count) red blood count (test code = red 3.78 M/uL 3.80-5.20 L blood count) hemoglobin (test code = 13.0 g/dL 10.5-15.7 hemoglobin) hematocrit (test code = 39.7 % 34.0-50.0 hematocrit) Erythrocyte mean corpuscular 105.0 fL 86-100 H volume [Entitic volume] (test code = 98554-0) mean corpuscular hemoglobin (test 34.4 pg 26.2-33.4 [...] 44.4-80.1 leukocytes in Blood (test code = 60586-7) Granulocytes Immature [#/volume] 0.0 K/uL 0.0-0.03 in Blood (test code = 77895-5) lymphocyte% (test code = 22.3 % 10.0-50.0 lymphocyte%) mono % (test code = mono %) 9.1 % 3.6-12.0 eos % (test code = eos %) 1.1 % 0.0-5.4 Basophils/100 leukocytes in 0.8 % 0.1-1.2 Unspecified specimen (test code = 03941-1) Neutrophils.band form [#/volume] 5.85 K/uL 1.56-6.13 in Blood (test code = 65493-3) Lymphocytes [#/volume] in 2.0 K/uL 1.18-3.74 Unspecified specimen by Automated count (test code = 82089-0) mono # (test code = mono #) 0.80 K/uL 0.24-0.86 eos # (test code = eos #) 0.10 K/uL 0.04-0.36 basophil # (test code = basophil 0.07 K/uL 0.01-0.08 #) NRBC% (test code = NRBC%) 0 /100 WBC 0-0.2 NRBC# (test code = NRBC#) 0 K/uL [facility]different[facility], [id number] 04:19:00 NeutrophilsLymphocyteMonocyteEosinophilBasophilPlatelet EstimateDifferential comment-[facility] HospitalLactate [Mass/volume] in Serum or Plasma 2019-12-10 04:19:00 Test Item Value Reference Range Interpretation Comments lactic acid (test code = lactic 1.73 mmol/L 0.5-2.2 acid) [facility] HospitalComprehensive metabolic 2000 panel - Serum or [...] Serum or Plasma (test code = 6768-6) [facility] GroupMagnesium [Moles/volume] in Unspecified specimen 2019-12-10 04:19:00 Test Item Value Reference Range Interpretation Comments magnesium level (test code = 1.8 mg/dL 1.6-2.4 magnesium level) [facility] GroupDigoxin [Mass/volume] in Serum or [id number] 04:19:00 Test Item Value Reference Range Interpretation Comments digoxin level (test code = digoxin <0.30 0.8-2.0 L level) [facility] GroupCreatine kinase [Enzymatic activity/volume] in Serum or [id number] 04:19:00 Test Item Value Reference Range Interpretation Comments creatine kinase (test code = creatine 104 U/L 20-180 kinase) [facility] GroupNatriuretic peptide.B prohormone N-Terminal [Mass/volume] in Serum or [id number] 04:19:00 Test Item Value Reference Range Interpretation Comments N-term pro natriuretic peptide 1627 pg/mL 0-450 H (test code = N-term pro natriuretic peptide) [facility] HospitalTroponin I.cardiac [Mass/volume] in [id number] 04:19:00 Test Item Value Reference Range Interpretation Comments cardiac troponin I (test code = cardiac <0.30 0.0-0.5 troponin I) [facility] HospitalCreatine kinase.MB [Mass/volume] in Serum or Plasma 2019-12-10 04:19:00 Test Item Value Reference Range Interpretation Comments mass creatinine kinase-mb (test 2.7 NG/mL 0.0-3.6 code = mass creatinine kinase-mb) [facility] HospitalUrinal[facility] complete W Reflex Culture panel - Urine 2019-12-08 11:33:00 Test Item Value Reference Range Interpretation Comments Color of Urine by Auto (test code lt. yellow = 73725-1) Appearance of Urine (test code = clear clear 5767-9) Glucose [Mass/volume] in Urine negative negative (test code = 2350-7) bilirubin, urine (test code = negative negative bilirubin, urine) ketone, urine (test code = negative negative ketone, urine) Specific gravity of Urine by 1.015 1.003-1.030 Automated test strip (test code = 03120-4) Hemoglobin [Presence] in Urine by negative negative Test strip (test code = 5794-3) pH of Urine (test code = 2756-5) 5.500 5-9 protein urine (UA) (test code = negative negative protein urine (UA)) Urobilinogen [Presence] in Urine 0.2 E.U./dL 0.2-1.0 (test code = 60598-1) Nitrite [Presence] in Urine by negative negative Test strip (test code = 5802-4) urine leukocyte esterase (test =1 negative H code = urine leukocyte esterase) Erythrocytes [Presence] in Urine =0-3 0-5 (test code = 74085-0) WBC, urine (test code = WBC, =15-19 0-5 H urine) Epithelial cells [Presence] in =0-5 0-5 Urine sediment by Light microscopy (test code = 48255-2) bacteria, urine (test code = moderate (2 none detect H bacteria, urine) urine culture added? (test code = yes urine culture added?) [facility] HospitalBacteria identified in Urine by [id number] 11:33:00Bacteria Ur [facility]antib[facility], [id number] 11:33:00 Test Item Value Reference Range Interpretation [...] Minimum inhibitory concentration (YUNG) (test code = 30137-1) Piperacillin+Tazobactam <16 [Susceptibility] by Minimum inhibitory concentration [...] <0.5 inhibitory concentration (YUNG) (test code = 21706-8) Aztreonam [Susceptibility] by Minimum <4 inhibitory concentration (YUNG) (test code = 44-8) Cefuroxime [Susceptibility] by Minimum <4 inhibitory concentration (YUNG) (test code = 30066-5) [facility]Ur[facility] W Reflex Culture panel - Urine 2019-10-14 10:23:00 Test Item Value Reference Range Interpretation Comments Color of Urine by Auto (test lt. yellow code = 59799-8) Appearance of Urine (test code clear clear = 5767-9) Glucose [Mass/volume] in Urine negative negative (test code = 2350-7) bilirubin, urine (test code = negative negative bilirubin, urine) ketone, urine (test code = negative negative ketone, urine) Specific gravity of Urine by 1.010 1.003-1.030 Automated test strip (test code = 77690-2) Hemoglobin [Presence] in Urine negative negative by Test strip (test code = 5794-3) pH of Urine (test code = 5.000 5-9 2756-5) protein urine (UA) (test code = negative negative protein urine (UA)) Urobilinogen [Presence] in 0.2 E.U./dL 0.2-1.0 Urine (test code = 30558-7) Nitrite [Presence] in Urine by negative negative Test strip (test code = 5802-4) urine leukocyte esterase (test negative negative code = urine leukocyte esterase) Erythrocytes [Presence] in none seen 0-5 Urine (test code = 09798-1) WBC, urine (test code = WBC, =0-2 0-5 urine) Epithelial cells [Presence] in =0-5 0-5 Urine sediment by Light microscopy (test code = 47536-2) bacteria, urine (test code = none detected none detect bacteria, urine) urine culture added? (test code no = urine culture added?) [facility] Reflex Culture panel - Urine 2019-09-16 00:00:00 Test Item Value Reference Range Interpretation Comments Color of Urine by Auto (test yellow code = 40326-0) Appearance of Urine (test code clear clear = 5767-9) Glucose [Mass/volume] in Urine negative negative (test code = 2350-7) bilirubin, urine (test code = negative negative bilirubin, urine) ketone, urine (test code = negative negative ketone, urine) Specific gravity of Urine by 1.010 1.003-1.030 Automated test strip (test code = 82490-6) Hemoglobin [Presence] in Urine negative negative by Test strip (test code = 5794-3) pH of Urine (test code = 5.000 5-9 2756-5) protein urine (UA) (test code = negative negative protein urine (UA)) Urobilinogen [Presence] in 0.2 E.U./dL 0.2-1.0 Urine (test code = 25408-5) Nitrite [Presence] in Urine by negative negative Test strip (test code = 5802-4) urine leukocyte esterase (test trace negative H code = urine leukocyte esterase) Erythrocytes [Presence] in <1 0-5 Urine (test code = 68593-9) WBC, urine (test code = WBC, =0-2 0-5 urine) Epithelial cells [Presence] in =6-10 0-5 Urine sediment by Light microscopy (test code = 09846-1) bacteria, urine (test code = none detected none detect bacteria, urine) Casts [#/area] in Urine hyaline >20 none detect sediment by Automated count (test code = 59762-3) urine culture added? (test code no = urine culture added?) squamous epithelial cell urine =6-10 0-5 (test code = squamous epithelial cell urine) [facility] GroupBacteria identified in Urine by [id number] 00:00:00 Test Item Value Reference Range Interpretation Comments Bacteria identified in no growth after 2 Urine by Culture (test days code = 630-4) [facility] GroupBacteria identified in Urine by [id number] 12:06:00 Test Item Value Reference Range Interpretation Comments Bacteria identified in no growth at 48 hrs. Urine by Culture (test code = 630-4) [facility] GroupUrinalysis complete W Reflex Culture panel - Urine 2019-09-05 11:45:00 Test Item Value Reference Range Interpretation Comments Color of Urine by Auto (test light yellow code = 31099-4) Appearance of Urine (test clear clear code = 5767-9) Glucose [Presence] in Urine negative negative by Automated test strip (test code = 18775-3) Bilirubin.total [Mass/volume] negative negative in Urine (test code = 1977-) Ketones [Mass/volume] in negative negative Urine by Automated test strip (test code = 75529-9) Specific gravity of Urine by 1.013 1.003-1.030 Automated test strip (test code = 56299-5) blood urine (test code = negative negative blood urine) pH of Urine (test code = 5.000 5-9 2756-5) protein urine (UA) (test code negative negative = protein urine (UA)) Urobilinogen [Presence] in normal 0.2-1.0 Urine (test code = 07817-6) Nitrite [Presence] in Urine negative negative by Test strip (test code = 5802-4) Leukocyte esterase [Presence] negative negative in Urine by Automated test strip (test code = 46283-4) Erythrocytes [#/volume] in <1 0-5 Urine by Automated count (test code = 798-9) Leukocytes [#/area] in Urine <1 0-5 sediment by Automated count (test code = 30202-5) Epithelial cells [Presence] <1 0-5 in Urine sediment by Light microscopy (test code = 35061-9) Bacteria identified in Urine none detected none detect by Culture (test code = 630-4) Casts [#/area] in Urine =2-5 none detect sediment by Automated count (test code = 01675-1) urine culture added? (test already ordered code = urine culture added?) [facility]lex Culture panel - Urine 2019-08-07 10:15:00 Test Item Value Reference Range Interpretation Comments Color of Urine by Auto (test light yellow code = 17716-2) Appearance of Urine (test code clear clear = 5767-9) Glucose [Presence] in Urine by negative negative Automated test strip (test code = 96687-0) Bilirubin.total [Mass/volume] negative negative in Urine (test code = 1978-04) Ketones [Mass/volume] in Urine negative negative by Automated test strip (test code = 00065-8) Specific gravity of Urine by 1.007 1.003-1.030 Automated test strip (test code = 89325-0) blood urine (test code = blood negative negative urine) pH of Urine (test code = 5.000 5-9 2756-5) protein urine (UA) (test code = negative negative protein urine (UA)) Urobilinogen [Presence] in normal 0.2-1.0 Urine (test code = 72658-9) Nitrite [Presence] in Urine by negative negative Test strip (test code = 5802-4) Leukocyte esterase [Presence] negative negative in Urine by Automated test strip (test code = 64260-5) Erythrocytes [#/volume] in <1 0-5 Urine by Automated count (test code = 798-9) Leukocytes [#/area] in Urine =1-5 0-5 sediment by Automated count (test code = 21945-8) Epithelial cells [Presence] in =1-5 0-5 Urine sediment by Light microscopy (test code = 06732-3) Bacteria identified in Urine by none detected none detect Culture (test code = 630-4) Casts [#/area] in Urine none detected none detect sediment by Automated count (test code = 06334-3) urine culture added? (test code no = urine culture added?) [facility] W Auto Differential panel - [id number] 02:45:00 Test Item Value Reference Range Interpretation Comments white blood count (test code = 6.9 K/uL 4.0-11.5 white blood count) red blood count (test code = red 3.16 M/uL 3.80-5.20 L blood count) hemoglobin (test code = 10.8 g/dL 10.5-15.7 hemoglobin) hematocrit (test code = 33.1 % 34.0-50.0 L hematocrit) Erythrocyte mean corpuscular 104.7 fL 86-100 H volume [Entitic volume] (test code = 63921-3) mean corpuscular hemoglobin (test 34.2 pg 26.2-33.4 [...] 44.4-80.1 leukocytes in Blood (test code = 90298-6) Granulocytes Immature [#/volume] 0.0 K/uL 0.0-0.03 in Blood (test code = 49497-7) lymphocyte% (test code = 35.4 % 10.0-50.0 lymphocyte%) mono % (test code = mono %) 9.8 % 3.6-12.0 eos % (test code = eos %) 2.2 % 0.0-5.4 Basophils/100 leukocytes in 0.6 % 0.1-1.2 Unspecified specimen (test code = 59293-3) Neutrophils.band form [#/volume] 3.58 K/uL 1.56-6.13 in Blood (test code = 75647-9) Lymphocytes [#/volume] in 2.5 K/uL 1.18-3.74 Unspecified specimen by Automated count (test code = 03523-2) mono # (test code = mono #) 0.68 K/uL 0.24-0.86 eos # (test code = eos #) 0.15 K/uL 0.04-0.36 basophil # (test code = basophil 0.04 K/uL 0.01-0.08 #) NRBC% (test code = NRBC%) 0 /100 WBC 0-0.2 NRBC# (test code = NRBC#) 0 K/uL [facility] Hospitaldifferential panel, [id number] 02:45:00 NeutrophilsBandLymphocyteAtypical LymphMonocyteEosinophilBasophilMetamyelocyteMyelocytePlatelet EstimatePlatelet MorphologyHypochromasiaPoikilocytosisAnisocytosisMicrocytosisOvalocytesToxic VacuolationMataGifford Medical Center GroupBasic metabolic 2000 panel - Serum or Plasma [...] code = calcium 9.6 mg/dL 8.8-10.2 level) [facility]Digoxin [Mass/volume] in Serum or [id number] 02:45:00 Test Item Value Reference Range Interpretation Comments digoxin level (test code = digoxin 0.94 NG/mL 0.8-2.0 level) [facility] Hospitalmcdiff [id number] 05:24:00ResultsMississippi State HospitalCBC W Auto Differential panel - [id number] 03:58:00 Test Item Value Reference Range Interpretation Comments white blood count (test code = 8.5 K/uL 4.0-11.5 white blood count) red blood count (test code = red 3.05 M/uL 3.80-5.20 L blood count) hemoglobin (test code = 10.5 g/dL 10.5-15.7 hemoglobin) hematocrit (test code = 32.1 % 34.0-50.0 L hematocrit) Erythrocyte mean corpuscular 105.2 fL 86-100 H volume [Entitic volume] (test code = 64323-0) mean corpuscular hemoglobin (test 34.4 pg 26.2-33.4 [...] 44.4-80.1 leukocytes in Blood (test code = 76293-3) Granulocytes Immature [#/volume] 0.1 K/uL 0.0-0.03 H in Blood (test code = 07935-6) lymphocyte% (test code = 29.1 % 10.0-50.0 lymphocyte%) mono % (test code = mono %) 11.9 % 3.6-12.0 eos % (test code = eos %) 2.0 % 0.0-5.4 Basophils/100 leukocytes in 0.5 % 0.1-1.2 Unspecified specimen (test code = 32819-0) Neutrophils.band form [#/volume] 4.76 K/uL 1.56-6.13 in Blood (test code = 18934-5) Lymphocytes [#/volume] in 2.5 K/uL 1.18-3.74 Unspecified specimen by Automated count (test code = 82592-6) mono # (test code = mono #) 1.01 K/uL 0.24-0.86 H eos # (test code = eos #) 0.17 K/uL 0.04-0.36 basophil # (test code = basophil 0.04 K/uL 0.01-0.08 #) NRBC% (test code = NRBC%) 0 /100 WBC 0-0.2 NRBC# (test code = NRBC#) 0 K/uL [facility] metabolic 2000 panel - Serum or [id number] 03:58:00 Test Item Value Reference Range Interpretation [...] code = calcium 9.0 mg/dL 8.8-10.2 level) [facility] HospitalLactate [Mass/volume] in Serum or [id number] 03:58:00 Test Item Value Reference Range Interpretation Comments lactic acid (test code = lactic 1.24 mmol/L 0.5-2.2 acid) [facility] Hospitallprocal2019-[facility]-16 03:58:00 Test Item Value Reference Range Interpretation Comments Procalcitonin [Mass/volume] in 3.3 NG/mL 0.0-0.8 H Serum or Plasma (test code = 85749-1) [facility] HospitalDigoxin [Mass/volume] in Serum or [id number] 03:58:00 Test Item Value Reference Range Interpretation Comments digoxin level (test code = digoxin 1.49 NG/mL 0.8-2.0 level) [facility] HospitalLeukocytes [Presence] in Stool by Light microscopy 2019-07-27 01:29:00ResultsMississippi State HospitalClostridium difficile toxin A+B [Presence] in [id number] 01:29:00ResultsMississippi State HospitalDigoxin [Mass/volume] in Serum or [id number] 07:02:00 Test Item Value Reference Range Interpretation Comments digoxin level (test code = digoxin 2.32 NG/mL 0.8-2.0 level) [facility] HospitalCBC W Auto Differential panel - [id number] 02:15:00 Test Item Value Reference Range Interpretation Comments white blood count (test code = 8.1 K/uL 4.0-11.5 white blood count) red blood count (test code = red 3.35 M/uL 3.80-5.20 L blood count) hemoglobin (test code = 11.4 g/dL 10.5-15.7 hemoglobin) hematocrit (test code = 35.3 % 34.0-50.0 hematocrit) Erythrocyte mean corpuscular 105.4 fL 86-100 H volume [Entitic volume] (test code = 56249-6) mean corpuscular hemoglobin (test 34.0 pg 26.2-33.4 [...] 44.4-80.1 leukocytes in Blood (test code = 39391-6) Granulocytes Immature [#/volume] 0.0 K/uL 0.0-0.03 in Blood (test code = 06636-3) lymphocyte% (test code = 26.0 % 10.0-50.0 lymphocyte%) mono % (test code = mono %) 13.7 % 3.6-12.0 H eos % (test code = eos %) 2.2 % 0.0-5.4 Basophils/100 leukocytes in 0.5 % 0.1-1.2 Unspecified specimen (test code = 46340-3) Neutrophils.band form [#/volume] 4.64 K/uL 1.56-6.13 in Blood (test code = 85643-8) Lymphocytes [#/volume] in 2.1 K/uL 1.18-3.74 Unspecified specimen by Automated count (test code = 60529-8) mono # (test code = mono #) 1.11 K/uL 0.24-0.86 H eos # (test code = eos #) 0.18 K/uL 0.04-0.36 basophil # (test code = basophil 0.04 K/uL 0.01-0.08 #) NRBC% (test code = NRBC%) 0 /100 WBC 0-0.2 NRBC# (test code = NRBC#) 0 K/uL [facility] HospitalLactate [Mass/volume] in Serum or [id number] 02:15:00 Test Item Value Reference Range Interpretation Comments lactic acid (test code = lactic 0.97 mmol/L 0.5-2.2 acid) [facility] HospitalComprehensive metabolic 2000 panel - Serum or [...] Serum or Plasma (test code = 6768-6) [facility] HospitalMagnesium [Moles/volume] in Unspecified specimen 2019-07-26 02:15:00 Test Item Value Reference Range Interpretation Comments magnesium level (test code = 2.0 mg/dL 1.6-2.4 magnesium level) [facility]allprocal2019-[facility] 02:15:00 Test Item Value Reference Range Interpretation Comments Procalcitonin [Mass/volume] in 8.3 NG/mL 0.0-0.8 H Serum or Plasma (test code = 41050-8) [facility] HospitalUrinalysis complete panel - [id number] 08:50:00 Test Item Value Reference Range Interpretation Comments Color of Urine by Auto (test code yellow = 05835-5) Appearance of Urine (test code = cloudy clear 5767-9) Glucose [Mass/volume] in Urine negative negative (test code = 2350-7) bilirubin, urine (test code = negative negative bilirubin, urine) ketone, urine (test code = negative negative ketone, urine) Specific gravity of Urine by 1.010 1.003-1.030 Automated test strip (test code = 75581-8) Hemoglobin [Presence] in Urine by large negative H Test strip (test code = 5794-3) pH of Urine (test code = 2756-5) 5.500 5-9 protein urine (UA) (test code = negative negative protein urine (UA)) Urobilinogen [Presence] in Urine 0.2 E.U./dL 0.2-1.0 (test code = 50659-3) Nitrite [Presence] in Urine by positive negative Test strip (test code = 5802-4) urine leukocyte esterase (test moderate negative H code = urine leukocyte esterase) Erythrocytes [Presence] in Urine =6-10 0-5 (test code = 57809-0) WBC, urine (test code = WBC, =20-29 0-5 H urine) Epithelial cells [Presence] in none seen 0-5 Urine sediment by Light microscopy (test code = 67178-2) bacteria, urine (test code = large none detect H bacteria, urine) urine culture added? (test code = yes urine culture added?) [facility] HospitalBacteria identified in Urine by [id number] 08:50:00Bacteria Ur CultMississippi State Hospitalantibiotic sensitivity testing, [id number] 08:50:00 Test Item Value Reference Range Interpretation [...] Minimum inhibitory concentration (YUNG) (test code = 82591-7) Piperacillin+Tazobactam <16 [Susceptibility] by Minimum inhibitory concentration [...] Minimum inhibitory concentration (YUNG) (test code = 94669-5) Aztreonam [Susceptibility] by <8 Minimum inhibitory concentration (YUNG) (test code = 44-8) Cefuroxime [Susceptibility] by <4 Minimum inhibitory concentration (YUNG) (test code = 41960-1) Meropenem [Susceptibility] by <4 Minimum inhibitory concentration (YUNG) (test code = 6652-2) [facility] HospitalLactate [Mass/volume] in Serum or [id number] 08:09:00 Test Item Value Reference Range Interpretation Comments lactic acid (test code = lactic 1.13 mmol/L 0.5-2.2 acid) [facility] HospitalComprehensive metabolic 2000 panel - Serum or [...] Serum or Plasma (test code = 6768-6) [facility] HospitalCreatine kinase [Enzymatic activity/volume] in Serum or [id number] 08:09:00 Test Item Value Reference Range Interpretation Comments creatine kinase (test code = creatine 22 U/L 20-180 kinase) [facility] W Auto Differential panel - [id number] 08:09:00 Test Item Value Reference Range Interpretation Comments white blood count (test code = 9.7 K/uL 4.0-11.5 white blood count) red blood count (test code = red 3.58 M/uL 3.80-5.20 L blood count) hemoglobin (test code = 12.2 g/dL 10.5-15.7 hemoglobin) hematocrit (test code = 37.6 % 34.0-50.0 hematocrit) Erythrocyte mean corpuscular 105.0 fL 86-100 H volume [Entitic volume] (test code = 45027-4) mean corpuscular hemoglobin (test 34.1 pg 26.2-33.4 [...] 44.4-80.1 leukocytes in Blood (test code = 87887-5) Granulocytes Immature [#/volume] 0.0 K/uL 0.0-0.03 in Blood (test code = 00212-2) lymphocyte% (test code = 20.6 % 10.0-50.0 lymphocyte%) mono % (test code = mono %) 13.4 % 3.6-12.0 H eos % (test code = eos %) 2.4 % 0.0-5.4 Basophils/100 leukocytes in 0.5 % 0.1-1.2 Unspecified specimen (test code = 43065-5) Neutrophils.band form [#/volume] 6.05 K/uL 1.56-6.13 in Blood (test code = 65434-7) Lymphocytes [#/volume] in 2.0 K/uL 1.18-3.74 Unspecified specimen by Automated count (test code = 93136-8) mono # (test code = mono #) 1.29 K/uL 0.24-0.86 H eos # (test code = eos #) 0.23 K/uL 0.04-0.36 basophil # (test code = basophil 0.05 K/uL 0.01-0.08 #) NRBC% (test code = NRBC%) 0 /100 WBC 0-0.2 NRBC# (test code = NRBC#) 0 K/uL [facility]differential panel, [id number] 08:09:00 NeutrophilsBandLymphocyteAtypical LymphMonocyteEosinophilBasophilPlatelet EstimatePlatelet MorphologyToxic GranulationHypersegmented PolysMatagochoctaw regional medical center Medical GroupTroponin I.cardiac [Mass/volume] in [id number] 08:09:00 Test Item Value Reference Range Interpretation Comments cardiac troponin I (test code = cardiac <0.30 0.0-0.5 troponin I) [facility] HospitalCreatine kinase.MB [Mass/volume] in Serum or Plasma 2019-07-25 08:09:00 Test Item Value Reference Range Interpretation Comments mass creatinine kinase-mb (test 1.5 NG/mL 0.0-3.6 code = mass creatinine kinase-mb) [facility] GroupMyoglobin [Mass/volume] in Serum or [id number] 08:09:00 Test Item Value Reference Range Interpretation Comments myoglobin (test code = myoglobin) 63 NG/mL 25-58 H [facility] GroupCortisol [Mass/volume] in Serum or Plasma --morning [id number] 08:09:00 Test Item Value Reference Range Interpretation Comments cortisol,AM (test code = 20.7 ug/dL 6.20-19.4 H cortisol,AM) [facility] HospitalThyrotropin [Units/volume] in Serum or [id number] 08:09:00 Test Item Value Reference Range Interpretation Comments Thyrotropin [Units/volume] in 1.93 uIU/mL 0.36-3.74 Serum or Plasma (test code = 3016-3) [facility]allprocal2019-[facility]-14 08:09:00 Test Item Value Reference Range Interpretation Comments Procalcitonin [Mass/volume] in 7.2 NG/mL 0.0-0.8 H Serum or Plasma (test code = 41355-0) [facility] HospitalThyroxine (T4) free [Mass/volume] in Serum or Plasma 2019-07-25 08:09:00 Test Item Value Reference Range Interpretation Comments free T4 (test code = free T4) 0.95 NG/dL 0.93-1.7 [facility] HospitalDigoxin [Mass/volume] in Serum or [id number] 08:00:00 Test Item Value Reference Range Interpretation Comments digoxin level (test code = digoxin 5.31 NG/mL 0.8-2.0 level) [facility] HospitalUrinalysis complete W Reflex Culture panel - Urine 2019-07-15 01:42:00 Test Item Value Reference Range Interpretation Comments Color of Urine by Auto light yellow (test code = 08514-6) Appearance of Urine (test SL cloudy clear A code = 5767-9) Glucose [Mass/volume] in negative negative Urine (test code = 2350-7) bilirubin, urine (test negative negative code = bilirubin, urine) ketone, urine (test code = negative negative ketone, urine) Specific gravity of Urine <=1.005 1.003-1.030 by Automated test strip (test code = 31426-0) Hemoglobin [Presence] in negative H Urine by Test strip (test code = 5794-3) pH of Urine (test code = 6.000 5-9 2756-5) protein urine (UA) (test negative negative code = protein urine (UA)) Urobilinogen [Presence] in 0.2 E.U./dL 0.2-1.0 Urine (test code = 85632-9) Nitrite [Presence] in positive negative Urine by Test strip (test code = 5802-4) urine leukocyte esterase =3 negative H (test code = urine leukocyte esterase) Erythrocytes [Presence] in =6-10 0-5 Urine (test code = 18001-6) WBC, urine (test code = >50 0-5 H WBC, urine) bacteria, urine (test code full field none detect H = bacteria, urine) Casts [#/area] in Urine hyaline casts 6-10 none detect sediment by Automated count (test code = 80203-8) urine culture added? (test yes code = urine culture added?) squamous epithelial cell =0-5 0-5 urine (test code = squamous epithelial cell urine) [facility] HospitalBacteria identified in Urine by [id number] 01:42:00Bacteria Ur [facility]antib[facility], [id number] 01:42:00 Test Item Value Reference Range Interpretation [...] Minimum inhibitory concentration (YUNG) (test code = 94766-4) Piperacillin+Tazobactam <16 [Susceptibility] by Minimum inhibitory concentration [...] Minimum inhibitory concentration (YUNG) (test code = 59289-1) Aztreonam [Susceptibility] by >16 Minimum inhibitory concentration (YUNG) (test code = 44-8) Cefuroxime [Susceptibility] by <4 Minimum inhibitory concentration (YUNG) (test code = 11138-9) Meropenem [Susceptibility] by <4 Minimum inhibitory concentration (YUNG) (test code = 6652-2) [facility] HospitalThyrotropin [Units/volume] in Serum or [id number] 08:50:00 Test Item Value Reference Range Interpretation Comments Thyrotropin [Units/volume] in 2.68 uIU/mL 0.36-3.74 Serum or Plasma (test code = 3016-3) [facility] HospitalUrinalysis complete panel - [id number] 08:21:00 Test Item Value Reference Range Interpretation Comments Color of Urine by Auto (test yellow code = 06104-6) Appearance of Urine (test code clear clear = 5767-9) Glucose [Presence] in Urine by negative negative Automated test strip (test code = 66587-3) Bilirubin.total [Mass/volume] negative negative in Urine (test code = 1978-6) Ketones [Mass/volume] in Urine negative negative by Automated test strip (test code = 29207-1) Specific gravity of Urine by 1.016 1.003-1.030 Automated test strip (test code = 38754-6) blood urine (test code = blood negative negative urine) pH of Urine (test code = 6.000 5-9 2756-5) protein urine (UA) (test code = negative negative protein urine (UA)) Urobilinogen [Presence] in normal 0.2-1.0 Urine (test code = 33615-0) Nitrite [Presence] in Urine by negative negative Test strip (test code = 5802-4) Leukocyte esterase [Presence] =1 negative H in Urine by Automated test strip (test code = 39392-2) Erythrocytes [#/volume] in <1 0-5 Urine by Automated count (test code = 798-9) Leukocytes [#/area] in Urine =1-5 0-5 sediment by Automated count (test code = 83166-8) Epithelial cells [Presence] in =1-5 0-5 Urine sediment by Light microscopy (test code = 95105-3) Bacteria identified in Urine by none detected none detect Culture (test code = 630-4) Casts [#/area] in Urine =2-5 none detect sediment by Automated count (test code = 34225-9) urine culture added? (test code yes = urine culture added?) [facility] HospitalBacteria identified in Urine by [id number] 08:21:00 Test Item Value Reference Range Interpretation Comments Bacteria identified in no growth after 2 Urine by Culture (test days. code = 630-4) [facility] HospitalUrinalysis complete panel - [id number] 08:21:00 Test Item Value Reference Range Interpretation Comments Color of Urine by Auto (test yellow code = 41054-2) Appearance of Urine (test code clear clear = 5767-9) Glucose [Presence] in Urine by negative negative Automated test strip (test code = 66438-5) Bilirubin.total [Mass/volume] negative negative in Urine (test code = 1978-6) Ketones [Mass/volume] in Urine negative negative by Automated test strip (test code = 16121-1) Specific gravity of Urine by 1.016 1.003-1.030 Automated test strip (test code = 19361-1) blood urine (test code = blood negative negative urine) pH of Urine (test code = 6.000 5-9 2756-5) protein urine (UA) (test code = negative negative protein urine (UA)) Urobilinogen [Presence] in normal 0.2-1.0 Urine (test code = 36674-5) Nitrite [Presence] in Urine by negative negative Test strip (test code = 5802-4) Leukocyte esterase [Presence] =1 negative H in Urine by Automated test strip (test code = 70400-9) Erythrocytes [#/volume] in <1 0-5 Urine by Automated count (test code = 798-9) Leukocytes [#/area] in Urine =1-5 0-5 sediment by Automated count (test code = 07763-6) Epithelial cells [Presence] in =1-5 0-5 Urine sediment by Light microscopy (test code = 78789-1) Bacteria identified in Urine by none detected none detect Culture (test code = 630-4) Casts [#/area] in Urine =2-5 none detect sediment by Automated count (test code = 98282-3) urine culture added? (test code yes = urine culture added?) [facility] HospitalBacteria identified in Urine by [id number] 08:21:00 Test Item Value Reference Range Interpretation Comments Bacteria identified in no growth after 2 Urine by Culture (test days. code = 630-4) [facility] W Auto Differential panel - [id number] 08:53:00 Test Item Value Reference Range Interpretation Comments white blood count (test code = 8.2 K/uL 4.0-11.5 white blood count) red blood count (test code = red 4.02 M/uL 3.80-5.20 blood count) hemoglobin (test code = 12.7 g/dL 10.5-15.7 hemoglobin) hematocrit (test code = 41.6 % 34.0-50.0 hematocrit) Erythrocyte mean corpuscular 103.5 fL 86-100 H volume [Entitic volume] (test code = 58088-2) Erythrocyte mean corpuscular 31.6 pg 26.2-33.4 hemoglobin [Entitic mass] (test code = 84841-5) mean corpuscular HGB conc (test 30.5 g/dL 30-34 code = mean corpuscular HGB conc) red cell distribution width (test 13.0 % 12.0-15.5 code = red cell distribution width) platelet count (test code = 275 K/uL 165-450 platelet count) mean platelet volume (test code = 8.4 fL 9.4-12.6 L mean platelet volume) Neutrophils.segmented/100 51.4 % 44.4-80.1 leukocytes in Blood (test code = 72241-3) Ig% (test code = Ig%) 0.2 % 0.0-0.4 lymphocyte% (test code = 32.2 % 10.0-50.0 lymphocyte%) Monocytes/100 leukocytes in Blood 10.4 % 3.6-12.0 by Automated count (test code = 5905-5) Eosinophils/100 leukocytes in 4.9 % 0.0-5.4 Blood by Automated count (test code = 713-8) Basophils/100 leukocytes in 0.9 % 0.1-1.2 Unspecified specimen (test code = 01999-5) absolute neutrophil count (test 4.23 K/uL 1.56-6.13 code = absolute neutrophil count) Ig# (test code = Ig#) 0.0 K/uL 0.0-0.03 Lymphocytes [#/volume] in 2.6 K/uL 1.18-3.74 Unspecified specimen by Automated count (test code = 67388-4) mono # (test code = mono #) 0.85 K/uL 0.24-0.86 eos # (test code = eos #) 0.40 K/uL 0.04-0.36 H basophil # (test code = basophil 0.07 K/uL 0.01-0.08 #) NRBC% (test code = NRBC%) 0 /100 WBC 0-0.2 NRBC# (test code = NRBC#) 0 K/uL [facility]differential panel, [id number] 08:53:00 NeutrophilsBandLymphocyteAtypical LymphMonocyteEosinophilBasophilMetamyelocyteNucleated Red Blood CellPlatelet EstimatePlatelet MorphologyHypochromasiaPoikilocytosisAnisocytosisMicrocytosisTarget CellsO valocytesToxic GranulationBurr CellsAcanthocytesHypersegmented PolysRouleau [facility] HospitalComprehensive metabolic 2000 panel - Serum or [...] Serum or Plasma (test code = 6768-6) [facility] HospitalDigoxin [Mass/volume] in Serum or [id number] 08:53:00 Test Item Value Reference Range Interpretation Comments digoxin level (test code = digoxin 1.27 NG/mL 0.8-2.0 level) [facility] W Auto Differential panel - [id number] 08:53:00 Test Item Value Reference Range Interpretation Comments white blood count (test code = 8.2 K/uL 4.0-11.5 white blood count) red blood count (test code = red 4.02 M/uL 3.80-5.20 blood count) hemoglobin (test code = 12.7 g/dL 10.5-15.7 hemoglobin) hematocrit (test code = 41.6 % 34.0-50.0 hematocrit) Erythrocyte mean corpuscular 103.5 fL 86-100 H volume [Entitic volume] (test code = 58496-4) Erythrocyte mean corpuscular 31.6 pg 26.2-33.4 hemoglobin [Entitic mass] (test code = 85224-7) mean corpuscular HGB conc (test 30.5 g/dL 30-34 code = mean corpuscular HGB conc) red cell distribution width (test 13.0 % 12.0-15.5 code = red cell distribution width) platelet count (test code = 275 K/uL 165-450 platelet count) mean platelet volume (test code = 8.4 fL 9.4-12.6 L mean platelet volume) Neutrophils.segmented/100 51.4 % 44.4-80.1 leukocytes in Blood (test code = 87865-3) Ig% (test code = Ig%) 0.2 % 0.0-0.4 lymphocyte% (test code = 32.2 % 10.0-50.0 lymphocyte%) Monocytes/100 leukocytes in Blood 10.4 % 3.6-12.0 by Automated count (test code = 5905-5) Eosinophils/100 leukocytes in 4.9 % 0.0-5.4 Blood by Automated count (test code = 713-8) Basophils/100 leukocytes in 0.9 % 0.1-1.2 Unspecified specimen (test code = 61082-1) absolute neutrophil count (test 4.23 K/uL 1.56-6.13 code = absolute neutrophil count) Ig# (test code = Ig#) 0.0 K/uL 0.0-0.03 Lymphocytes [#/volume] in 2.6 K/uL 1.18-3.74 Unspecified specimen by Automated count (test code = 32774-4) mono # (test code = mono #) 0.85 K/uL 0.24-0.86 eos # (test code = eos #) 0.40 K/uL 0.04-0.36 H basophil # (test code = basophil 0.07 K/uL 0.01-0.08 #) NRBC% (test code = NRBC%) 0 /100 WBC 0-0.2 NRBC# (test code = NRBC#) 0 K/uL [facility]different[facility], [id number] 08:53:00 NeutrophilsBandLymphocyteAtypical LymphMonocyteEosinophilBasophilMetamyelocyteNucleated Red Blood CellPlatelet EstimatePlatelet MorphologyHypochromasiaPoikilocytosisAnisocytosisMicrocytosisTarget CellsO valocytesToxic GranulationBurr CellsAcanthocytesHypersegmented PolysRouleau [facility] HospitalComprehensive metabolic 2000 panel - Serum or [...] Serum or Plasma (test code = 6768-6) [facility] HospitalDigoxin [Mass/volume] in Serum or [id number] 08:53:00 Test Item Value Reference Range Interpretation Comments digoxin level (test code = digoxin 1.27 NG/mL 0.8-2.0 level) [facility] W Auto Differential panel - [id number] 08:24:00 Test Item Value Reference Range Interpretation [...] 78-98 H [Entitic volume] (test code = 74481-7) Erythrocyte mean corpuscular 32.4 pg 26.2-33.4 hemoglobin [Entitic mass] (test code = 62679-9) mean corpuscular HGB conc (test 31.5 g/dL 31.5-36.2 code = mean corpuscular HGB conc) red cell distribution width (test 12.3 % 11.5-15.5 code = red cell distribution width) Platelets [#/volume] in Blood (test 246 K/uL 137-338 code = 45252-6) Platelet mean volume [Entitic 5.8 fL 8.4-11.8 L volume] in Blood (test code = 78517-3) Neutrophils.band form/100 37.6 % 44.4-80.1 L leukocytes in Blood (test code = 03276-5) Lymphocytes/100 leukocytes in Body 46.2 % 10.0-50.0 fluid (test code = 06733-6) Monocytes/100 leukocytes in Blood 10.0 % 3.6-12.0 by Automated count (test code = 5905-5) Eosinophils/100 leukocytes in Blood 5.0 % 0.0-5.4 by Automated count (test code = 713-8) Basophils/100 leukocytes in 1.2 % 0.0-0.79 H Unspecified specimen (test code = 02130-0) [facility]different[facility], [id number] 08:24:00 NeutrophilsBandLymphocyteMonocyteEosinophilPlatelet EstimatePlatelet MorphologyHypochromasiaPoikilocytosisAnisocytosisMississippi [facility] Hospital Urinalysis complete W Reflex Culture panel - [id number] 08:24:00 Test Item Value Reference Range Interpretation Comments Color of Urine by Auto (test yellow code = 65146-1) Appearance of Urine (test code SL cloudy clear A = 5767-9) Glucose [Presence] in Urine by negative negative Automated test strip (test code = 83992-0) Bilirubin.total [Mass/volume] negative negative in Urine (test code = 1978-6) Ketones [Mass/volume] in Urine negative negative by Automated test strip (test code = 53018-1) Specific gravity of Urine by 1.011 1.003-1.030 Automated test strip (test code = 54811-6) blood urine (test code = blood trace negative urine) pH of Urine (test code = 5.500 5-9 2756-5) protein urine (UA) (test code = negative negative protein urine (UA)) Urobilinogen [Presence] in normal 0.2-1.0 Urine (test code = 18566-7) Nitrite [Presence] in Urine by negative negative Test strip (test code = 5802-4) Leukocyte esterase [Presence] =4 negative H in Urine by Automated test strip (test code = 79779-9) Erythrocytes [#/volume] in =1-5 0-5 Urine by Automated count (test code = 798-9) Leukocytes [#/area] in Urine >50 0-5 H sediment by Automated count (test code = 91120-9) Epithelial cells [Presence] in <1 0-5 Urine sediment by Light microscopy (test code = 72139-4) Bacteria identified in Urine by none detected none detect Culture (test code = 630-4) Casts [#/area] in Urine =2-5 none detect sediment by Automated count (test code = 39464-5) urine culture added? (test code yes = urine culture added?) [facility] - [facility] or [...] Serum or Plasma (test code = 6768-6) [facility] HospitalLipid 1996 panel - Serum or [id number] 08:24:00 Test Item Value Reference Range Interpretation Comments cholesterol level (test code = 147 mg/dL 150-200 L cholesterol level) triglycerides level (test code = 150 mg/dL <150 triglycerides level) HDL cholesterol (test code = HDL 70 mg/dL >65 cholesterol) LDL cholesterol direct (test code = 67 mg/dL <100 LDL cholesterol direct) cholesterol risk ratio (test code = 2.100 cholesterol risk ratio) [facility] HospitalThyrotropin [Units/volume] in Serum or [id number] 08:24:00 Test Item Value Reference Range Interpretation Comments Thyrotropin [Units/volume] in 0.09 uIU/mL 0.36-3.74 L Serum or Plasma (test code = 3016-3) [facility] HospitalBacteria identified in Urine by [id number] 08:24:00Bacteria Ur CultMississippi State Hospitalantibiotic sensitivity testing, [id number] 08:24:00 Test Item Value Reference Range Interpretation [...] Minimum inhibitory concentration (YUNG) (test code = 31098-3) Piperacillin+Tazobactam <16 [Susceptibility] by Minimum inhibitory concentration [...] <2 inhibitory concentration (YUNG) (test code = 01089-9) Aztreonam [Susceptibility] by Minimum <8 inhibitory concentration (YUNG) (test code = 44-8) [id number] (test code = bkr7696) <4 Meropenem [Susceptibility] by Minimum <4 inhibitory concentration (YUNG) (test code = 6652-2) [facility] W Auto Differential panel - [id number] 02:25:00 Test Item Value Reference Range Interpretation [...] 78-98 H [Entitic volume] (test code = 19368-1) Erythrocyte mean corpuscular 33.3 pg 26.2-33.4 hemoglobin [Entitic mass] (test code = 92945-1) mean corpuscular HGB conc (test 31.6 g/dL 31.5-36.2 code = mean corpuscular HGB conc) red cell distribution width (test 13.0 % 11.5-15.5 code = red cell distribution width) Platelets [#/volume] in Blood (test 236 K/uL 137-338 code = 55712-3) Platelet mean volume [Entitic 5.7 fL 8.4-11.8 L volume] in Blood (test code = 60156-3) Neutrophils.band form/100 50.8 % 44.4-80.1 leukocytes in Blood (test code = 93570-8) Lymphocytes/100 leukocytes in Body 31.6 % 10.0-50.0 fluid (test code = 04198-4) Monocytes/100 leukocytes in Blood 13.4 % 3.6-12.04 by Automated count (test code = 5905-5) Eosinophils/100 leukocytes in Blood 2.9 % 0.0-5.41 by Automated count (test code = 713-8) Basophils/100 leukocytes in 1.3 % 0.0-0.79 H Unspecified specimen (test code = 70457-1) [facility]Com[facility] 2000 panel - Serum or [...] Serum or Plasma (test code = 6768-6) [facility] GroupUrinal[facility] complete panel - [id number] 10:38:00 Test Item Value Reference Range Interpretation Comments Color of Urine by Auto (test light yellow code = 73188-9) Appearance of Urine (test code clear clear = 5767-9) Glucose [Presence] in Urine by negative negative Automated test strip (test code = 57560-5) Bilirubin.total [Mass/volume] negative negative in Urine (test code = 1978-6) Ketones [Mass/volume] in Urine negative negative by Automated test strip (test code = 02775-4) Specific gravity of Urine by 1.009 1.003-1.030 Automated test strip (test code = 13488-3) blood urine (test code = blood negative negative urine) pH of Urine (test code = 5.000 5-9 2756-5) protein urine (UA) (test code = negative negative protein urine (UA)) Urobilinogen [Presence] in normal 0.2-1.0 Urine (test code = 21701-5) Nitrite [Presence] in Urine by negative negative Test strip (test code = 5802-4) Leukocyte esterase [Presence] =1 negative H in Urine by Automated test strip (test code = 09655-1) Erythrocytes [#/volume] in <1 0-5 Urine by Automated count (test code = 798-9) Leukocytes [#/area] in Urine <1 0-5 sediment by Automated count (test code = 90790-6) Epithelial cells [Presence] in <1 0-5 Urine sediment by Light microscopy (test code = 55445-2) Bacteria identified in Urine by none detected none detect Culture (test code = 630-4) Casts [#/area] in Urine =2-5 none detect sediment by Automated count (test code = 57682-4) urine culture added? (test code yes = urine culture added?) [facility] HospitalB[facility] identified in Urine by [id number] 10:38:00 Test Item Value Reference Range Interpretation Comments Bacteria identified in no growth at 48 hrs. Urine by Culture (test code = 630-4) [facility] W Auto Differential panel - [id number] 09:11:00 Test Item Value Reference Range Interpretation [...] 78-98 H [Entitic volume] (test code = 17117-6) Erythrocyte mean corpuscular 33.9 pg 26.2-33.4 H hemoglobin [Entitic mass] (test code = 56044-6) mean corpuscular HGB conc (test 31.6 g/dL 31.5-36.2 code = mean corpuscular HGB conc) red cell distribution width (test 12.8 % 11.5-15.5 code = red cell distribution width) Platelets [#/volume] in Blood (test 350 K/uL 137-338 H code = 16928-2) Platelet mean volume [Entitic 6.1 fL 8.4-11.8 L volume] in Blood (test code = 47138-2) Neutrophils.band form/100 81.8 % 44.4-80.1 H leukocytes in Blood (test code = 39052-9) Lymphocytes/100 leukocytes in Body 10.2 % 10.0-50.0 fluid (test code = 00220-3) Monocytes/100 leukocytes in Blood 6.7 % 3.6-12.04 by Automated count (test code = 5905-5) Eosinophils/100 leukocytes in Blood 0.5 % 0.0-5.41 by Automated count (test code = 713-8) Basophils/100 leukocytes in 0.8 % 0.0-0.79 H Unspecified specimen (test code = 34595-3) [facility]different[facility] panel, [id number] 09:11:00 NeutrophilsBandLymphocyteAtypical LymphMonocyteEosinophilBasophilMyelocyteNucleated Red Blood CellPlatelet EstimatePlatelet MorphologyHypochromasiaPoikilocytosisAnisocytosisMacrocytosisSpherocyteTarget CellsToxic GranulationHypersegmented PolysToxic VacuolationSmudge CellsSickle CellsMaWalthall County General HospitalComprehensive metabolic 2000 panel - Serum or [...] Serum or Plasma (test code = 6768-6) [facility] Hospitalmflu [id number] 09:10:00ResultsMississippi State HospitalLactate [Mass/volume] in Serum or [id number] 01:17:00 Test Item Value Reference Range Interpretation Comments lactic acid (test code = lactic 1.08 mmol/L 0.5-2.2 acid) [facility] HospitalMethicillin resistant Staphylococcus aureus [Presence] in Unspecified specimen by Organism specific [id number] 07:37:00Results [facility] HospitalUrinalysis complete W Reflex Culture panel - Urine 2019-02-13 10:25:00 Test Item Value Reference Range Interpretation Comments Color of Urine by Auto (test light yellow code = 91116-6) Appearance of Urine (test code clear clear = 5767-9) Glucose [Presence] in Urine by negative negative Automated test strip (test code = 60067-9) Bilirubin.total [Mass/volume] negative negative in Urine (test code = 1978-6) Ketones [Mass/volume] in Urine negative negative by Automated test strip (test code = 96050-7) Specific gravity of Urine by 1.009 1.003-1.030 Automated test strip (test code = 97938-5) blood urine (test code = blood negative negative urine) pH of Urine (test code = 5.500 5-9 4406-5) protein urine (UA) (test code = negative negative protein urine (UA)) Urobilinogen [Presence] in normal 0.2-1.0 Urine (test code = 64088-9) Nitrite [Presence] in Urine by negative negative Test strip (test code = 5802-4) Leukocyte esterase [Presence] negative negative in Urine by Automated test strip (test code = 53375-4) Erythrocytes [#/volume] in <1 0-5 Urine by Automated count (test code = 798-9) Leukocytes [#/area] in Urine =1-5 0-5 sediment by Automated count (test code = 03736-9) Epithelial cells [Presence] in <1 0-5 Urine sediment by Light microscopy (test code = 19829-5) Bacteria identified in Urine by none detected none detect Culture (test code = 630-4) Casts [#/area] in Urine =2-5 none detect sediment by Automated count (test code = 44998-9) urine culture added? (test code no = urine culture added?) [facility] HospitalB[facility] identified in Urine by [id number] 10:25:00 Test Item Value Reference Range Interpretation Comments Bacteria identified in no growth at 48 hrs. Urine by Culture (test code = 630-4) [facility] HospitalUrinalysis complete W Reflex Culture panel - Urine 2019-02-13 10:25:00 Test Item Value Reference Range Interpretation Comments Color of Urine by Auto (test light yellow code = 75910-5) Appearance of Urine (test code clear clear = 5767-9) Glucose [Presence] in Urine by negative negative Automated test strip (test code = 37810-5) Bilirubin.total [Mass/volume] negative negative in Urine (test code = 1978-6) Ketones [Mass/volume] in Urine negative negative by Automated test strip (test code = 01709-7) Specific gravity of Urine by 1.009 1.003-1.030 Automated test strip (test code = 64622-0) blood urine (test code = blood negative negative urine) pH of Urine (test code = 5.500 5-9 2756-5) protein urine (UA) (test code = negative negative protein urine (UA)) Urobilinogen [Presence] in normal 0.2-1.0 Urine (test code = 23583-2) Nitrite [Presence] in Urine by negative negative Test strip (test code = 5802-4) Leukocyte esterase [Presence] negative negative in Urine by Automated test strip (test code = 80665-2) Erythrocytes [#/volume] in <1 0-5 Urine by Automated count (test code = 798-9) Leukocytes [#/area] in Urine =1-5 0-5 sediment by Automated count (test code = 23314-2) Epithelial cells [Presence] in <1 0-5 Urine sediment by Light microscopy (test code = 27246-0) Bacteria identified in Urine by none detected none detect Culture (test code = 630-4) Casts [#/area] in Urine =2-5 none detect sediment by Automated count (test code = 04468-7) urine culture added? (test code no = urine culture added?) [facility] identified in Urine by [id number] 10:25:00 Test Item Value Reference Range Interpretation Comments Bacteria identified in no growth at 48 hrs. Urine by Culture (test code = 630-4) [facility] HospitalUrinalysis complete W Reflex Culture panel - Urine 2019-02-03 11:49:00 Test Item Value Reference Range Interpretation Comments Color of Urine by Auto (test code yellow = 81299-4) Appearance of Urine (test code = clear clear 5767-9) Glucose [Mass/volume] in Urine negative negative (test code = 2350-7) bilirubin, urine (test code = negative negative bilirubin, urine) ketone, urine (test code = negative negative ketone, urine) Specific gravity of Urine by 1.010 1.003-1.030 Automated test strip (test code = 55950-1) Hemoglobin [Presence] in Urine by negative negative Test strip (test code = 5794-3) pH of Urine (test code = 2756-5) 5.500 5-9 protein urine (UA) (test code = negative negative protein urine (UA)) Urobilinogen [Presence] in Urine 0.2 E.U./dL 0.2-1.0 (test code = 01334-3) Nitrite [Presence] in Urine by negative negative Test strip (test code = 5802-4) urine leukocyte esterase (test =1 negative H code = urine leukocyte esterase) Erythrocytes [Presence] in Urine none seen 0-5 (test code = 45483-8) WBC, urine (test code = WBC, =10-14 0-5 H urine) Epithelial cells [Presence] in =6-10 0-5 Urine sediment by Light microscopy (test code = 85624-1) bacteria, urine (test code = trace none detect bacteria, urine) urine culture added? (test code = yes urine culture added?) [facility] GroupUrinal[facility] complete W Reflex Culture panel - Urine 2019-02-03 11:49:00 Test Item Value Reference Range Interpretation Comments Color of Urine by Auto (test code yellow = 63260-2) Appearance of Urine (test code = clear clear 5767-9) Glucose [Mass/volume] in Urine negative negative (test code = 2350-7) bilirubin, urine (test code = negative negative bilirubin, urine) ketone, urine (test code = negative negative ketone, urine) Specific gravity of Urine by 1.010 1.003-1.030 Automated test strip (test code = 44961-9) Hemoglobin [Presence] in Urine by negative negative Test strip (test code = 5794-3) pH of Urine (test code = 2756-5) 5.500 5-9 protein urine (UA) (test code = negative negative protein urine (UA)) Urobilinogen [Presence] in Urine 0.2 E.U./dL 0.2-1.0 (test code = 04066-1) Nitrite [Presence] in Urine by negative negative Test strip (test code = 5802-4) urine leukocyte esterase (test =1 negative H code = urine leukocyte esterase) Erythrocytes [Presence] in Urine none seen 0-5 (test code = 34671-9) WBC, urine (test code = WBC, =10-14 0-5 H urine) Epithelial cells [Presence] in =6-10 0-5 Urine sediment by Light microscopy (test code = 19067-6) bacteria, urine (test code = trace none detect bacteria, urine) urine culture added? (test code = yes urine culture added?) [facility] HospitalB[facility] identified in Urine by [id number] 11:49:00 Test Item Value Reference Range Interpretation Comments Bacteria identified in no growth at 48 hrs. Urine by Culture (test code = 630-4) [facility]Ur[facility] complete W Reflex Culture panel - Urine 2019-02-03 11:49:00 Test Item Value Reference Range Interpretation Comments Color of Urine by Auto (test code yellow = 99414-8) Appearance of Urine (test code = clear clear 5767-9) Glucose [Mass/volume] in Urine negative negative (test code = 2350-7) bilirubin, urine (test code = negative negative bilirubin, urine) ketone, urine (test code = negative negative ketone, urine) Specific gravity of Urine by 1.010 1.003-1.030 Automated test strip (test code = 15535-7) Hemoglobin [Presence] in Urine by negative negative Test strip (test code = 5794-3) pH of Urine (test code = 2756-5) 5.500 5-9 protein urine (UA) (test code = negative negative protein urine (UA)) Urobilinogen [Presence] in Urine 0.2 E.U./dL 0.2-1.0 (test code = 78383-0) Nitrite [Presence] in Urine by negative negative Test strip (test code = 5802-4) urine leukocyte esterase (test =1 negative H code = urine leukocyte esterase) Erythrocytes [Presence] in Urine none seen 0-5 (test code = 99545-6) WBC, urine (test code = WBC, =10-14 0-5 H urine) Epithelial cells [Presence] in =6-10 0-5 Urine sediment by Light microscopy (test code = 93342-8) bacteria, urine (test code = trace none detect bacteria, urine) urine culture added? (test code = yes urine culture added?) [facility] identified in Urine by [id number] 11:49:00 Test Item Value Reference Range Interpretation Comments Bacteria identified in no growth at 48 hrs. Urine by Culture (test code = 630-4) [facility] HospitalMethicillin resistant Staphylococcus aureus [Presence] in Unspecified specimen by Organism specific [id number] 02:06:00Results [facility] HospitalMethicillin resistant Staphylococcus aureus [Presence] in Unspecified specimen by Organism specific [id number] 02:06:00Results [facility] HospitalCB W Auto Differential panel - [id number] 10:29:00 Test Item Value Reference Range Interpretation [...] 78-98 H [Entitic volume] (test code = 19477-7) Erythrocyte mean corpuscular 34.4 pg 26.2-33.4 H hemoglobin [Entitic mass] (test code = 66602-4) mean corpuscular HGB conc (test 32.0 g/dL 31.5-36.2 code = mean corpuscular HGB conc) red cell distribution width (test 12.5 % 11.5-15.5 code = red cell distribution width) Platelets [#/volume] in Blood (test 238 K/uL 137-338 code = 76237-1) Platelet mean volume [Entitic 5.8 fL 8.4-11.8 L volume] in Blood (test code = 60655-7) Neutrophils.band form/100 80.7 % 44.4-80.1 H leukocytes in Blood (test code = 72295-3) Lymphocytes/100 leukocytes in Body 11.2 % 10.0-50.0 fluid (test code = 22408-5) Monocytes/100 leukocytes in Blood 7.2 % 3.6-12.04 by Automated count (test code = 5905-5) Eosinophils/100 leukocytes in Blood 0.2 % 0.0-5.41 by Automated count (test code = 713-8) Basophils/100 leukocytes in Blood 0.7 % 0.0-0.79 by Automated count (test code = 706-2) [facility]different[facility], [id number] 10:29:00 NeutrophilsBandLymphocyteMonocyteEosinophilBasophilNucleated Red Blood CellPlatelet EstimatePlateletMorphologyPoikilocytosisMaWalthall [facility] Hospital Comprehensive metabolic 2000 panel - Serum or [id number] 10:29:00 Test Item Value Reference Range Interpretation [...] Serum or Plasma (test code = 6768-6) [facility] HospitalCreatine kinase [Enzymatic activity/volume] in Serum or [id number] 10:29:00 Test Item Value Reference Range Interpretation Comments creatine kinase (test code = creatine 52 U/L 20-180 kinase) [facility] HospitalPT/[id number] 10:29:00 Test Item Value Reference Range Interpretation Comments prothrombin time (test code = 11.4 seconds 10.3-12.3 prothrombin time) INR in Blood by Coagulation 1.04 assay (test code = 07678-2) [facility] Hospitalpartial thromboplastin [id number] 10:29:00 Test Item Value Reference Range Interpretation Comments INR in Blood by Coagulation 31.7 seconds 22.5-37.0 assay (test code = 40124-7) [facility] HospitalNatriuretic peptide.B prohormone N-Terminal [Mass/volume] in Serum or [id number] 10:29:00 Test Item Value Reference Range Interpretation Comments N-term pro natriuretic peptide 933 pg/mL 0-450 H (test code = N-term pro natriuretic peptide) [facility] HospitalTroponin I.cardiac [Mass/volume] in [id number] 10:29:00 Test Item Value Reference Range Interpretation Comments cardiac troponin I (test code = cardiac <0.30 0.0-0.5 troponin I) [facility] HospitalCreatine kinase.MB [Mass/volume] in Serum or Plasma 2019-01-15 10:29:00 Test Item Value Reference Range Interpretation Comments mass creatinine kinase-mb (test 1.8 NG/mL 0.0-3.6 code = mass creatinine kinase-mb) [facility] W Auto Differential panel - [id number] 10:29:00 Test Item Value Reference Range Interpretation [...] 78-98 H [Entitic volume] (test code = 67326-1) Erythrocyte mean corpuscular 34.4 pg 26.2-33.4 H hemoglobin [Entitic mass] (test code = 71191-3) mean corpuscular HGB conc (test 32.0 g/dL 31.5-36.2 code = mean corpuscular HGB conc) red cell distribution width (test 12.5 % 11.5-15.5 code = red cell distribution width) Platelets [#/volume] in Blood (test 238 K/uL 137-338 code = 15209-5) Platelet mean volume [Entitic 5.8 fL 8.4-11.8 L volume] in Blood (test code = 18076-2) Neutrophils.band form/100 80.7 % 44.4-80.1 H leukocytes in Blood (test code = 62074-6) Lymphocytes/100 leukocytes in Body 11.2 % 10.0-50.0 fluid (test code = 82272-1) Monocytes/100 leukocytes in Blood 7.2 % 3.6-12.04 by Automated count (test code = 5905-5) Eosinophils/100 leukocytes in Blood 0.2 % 0.0-5.41 by Automated count (test code = 713-8) Basophils/100 leukocytes in Blood 0.7 % 0.0-0.79 by Automated count (test code = 706-2) [facility]different[facility] panel, [id number] 10:29:00 NeutrophilsBandLymphocyteMonocyteEosinophilBasophilNucleated Red Blood CellPlatelet EstimatePlateletMorphologyPoikilocytosisMississippi [facility] Hospital Comprehensive metabolic 2000 panel - Serum or [id number] 10:29:00 Test Item Value Reference Range Interpretation [...] Serum or Plasma (test code = 6768-6) [facility] HospitalCreatine kinase [Enzymatic activity/volume] in Serum or [id number] 10:29:00 Test Item Value Reference Range Interpretation Comments creatine kinase (test code = creatine 52 U/L 20-180 kinase) [facility] HospitalPT/[id number] 10:29:00 Test Item Value Reference Range Interpretation Comments prothrombin time (test code = 11.4 seconds 10.3-12.3 prothrombin time) INR in Blood by Coagulation 1.04 assay (test code = 14244-0) [facility] Hospitalpartial thromboplastin [id number] 10:29:00 Test Item Value Reference Range Interpretation Comments INR in Blood by Coagulation 31.7 seconds 22.5-37.0 assay (test code = 82399-4) [facility] HospitalNatriuretic peptide.B prohormone N-Terminal [Mass/volume] in Serum or [id number] 10:29:00 Test Item Value Reference Range Interpretation Comments N-term pro natriuretic peptide 933 pg/mL 0-450 H (test code = N-term pro natriuretic peptide) [facility] HospitalTroponin I.cardiac [Mass/volume] in [id number] 10:29:00 Test Item Value Reference Range Interpretation Comments cardiac troponin I (test code = cardiac <0.30 0.0-0.5 troponin I) [facility] HospitalCreatine kinase.MB [Mass/volume] in Serum or Plasma 2019-01-15 10:29:00 Test Item Value Reference Range Interpretation Comments mass creatinine kinase-mb (test 1.8 NG/mL 0.0-3.6 code = mass creatinine kinase-mb) [facility] HospitalUrinalysis complete W Reflex Culture panel - Urine 2019-01-13 11:29:00 Test Item Value Reference Range Interpretation Comments Color of Urine by Auto yellow (test code = 68574-2) Appearance of Urine (test clear clear code = 5767-9) Glucose [Mass/volume] in negative negative Urine (test code = 2350-7) bilirubin, urine (test negative negative code = bilirubin, urine) ketone, urine (test code = negative negative ketone, urine) Specific gravity of Urine 1.010 1.003-1.030 by Automated test strip (test code = 67377-2) Hemoglobin [Presence] in negative negative Urine by Test strip (test code = 5794-3) pH of Urine (test code = 5.000 5-9 2756-5) protein urine (UA) (test negative negative code = protein urine (UA)) Urobilinogen [Presence] in 0.2 E.U./dL 0.2-1.0 Urine (test code = 28575-7) Nitrite [Presence] in negative negative Urine by Test strip (test code = 5802-4) urine leukocyte esterase trace negative H (test code = urine leukocyte esterase) Erythrocytes [Presence] in none seen 0-5 Urine (test code = 46520-8) WBC, urine (test code = =0-2 0-5 WBC, urine) Epithelial cells occassional 0-5 [Presence] in Urine sediment by Light microscopy (test code = 05952-2) bacteria, urine (test code none detected none detect = bacteria, urine) Casts [#/area] in Urine hyaline casts 6-10 none detect sediment by Automated count (test code = 41865-0) urine culture added? (test no code = urine culture added?) [facility]Ur[facility] W Reflex Culture panel - Urine 2019-01-13 11:29:00 Test Item Value Reference Range Interpretation Comments Color of Urine by Auto yellow (test code = 88028-9) Appearance of Urine (test clear clear code = 5767-9) Glucose [Mass/volume] in negative negative Urine (test code = 2350-7) bilirubin, urine (test negative negative code = bilirubin, urine) ketone, urine (test code = negative negative ketone, urine) Specific gravity of Urine 1.010 1.003-1.030 by Automated test strip (test code = 80289-9) Hemoglobin [Presence] in negative negative Urine by Test strip (test code = 5794-3) pH of Urine (test code = 5.000 5-9 2756-5) protein urine (UA) (test negative negative code = protein urine (UA)) Urobilinogen [Presence] in 0.2 E.U./dL 0.2-1.0 Urine (test code = 32160-2) Nitrite [Presence] in negative negative Urine by Test strip (test code = 5802-4) urine leukocyte esterase trace negative H (test code = urine leukocyte esterase) Erythrocytes [Presence] in none seen 0-5 Urine (test code = 97661-8) WBC, urine (test code = =0-2 0-5 WBC, urine) Epithelial cells occassional 0-5 [Presence] in Urine sediment by Light microscopy (test code = 90437-2) bacteria, urine (test code none detected none detect = bacteria, urine) Casts [#/area] in Urine hyaline casts 6-10 none detect sediment by Automated count (test code = 20745-7) urine culture added? (test no code = urine culture added?) [facility] W Auto Differential panel - [id number] 08:46:00 Test Item Value Reference Range Interpretation [...] 78-98 H [Entitic volume] (test code = 38515-3) Erythrocyte mean corpuscular 33.7 pg 26.2-33.4 H hemoglobin [Entitic mass] (test code = 20579-0) mean corpuscular HGB conc (test 32.1 g/dL 31.5-36.2 code = mean corpuscular HGB conc) red cell distribution width (test 12.3 % 11.5-15.5 code = red cell distribution width) Platelets [#/volume] in Blood (test 293 K/uL 137-338 code = 07152-1) Platelet mean volume [Entitic 5.6 fL 8.4-11.8 L volume] in Blood (test code = 70141-2) Neutrophils.band form/100 43.4 % 44.4-80.1 L leukocytes in Blood (test code = 08728-6) Lymphocytes/100 leukocytes in Body 42.6 % 10.0-50.0 fluid (test code = 36856-5) Monocytes/100 leukocytes in Blood 9.1 % 3.6-12.04 by Automated count (test code = 5905-5) Eosinophils/100 leukocytes in Blood 3.2 % 0.0-5.41 by Automated count (test code = 713-8) Basophils/100 leukocytes in Blood 1.8 % 0.0-0.79 H by Automated count (test code = 706-2) [facility] [id number] 08:46:00 NeutrophilsBandLymphocyteMonocyteEosinophilBasophilPlatelet EstimateMaWalthall County General HospitalUrinalysis macro (dipstick) panel - [id number] 08:46:00 Test Item Value Reference Range Interpretation Comments Color of Urine by Auto (test code = yellow 52646-3) Appearance of Urine (test code = cloudy clear A 5767-9) Glucose [Presence] in Urine by negative negative Automated test strip (test code = 36276-9) Bilirubin.total [Mass/volume] in negative negative Urine (test code = 1978-) Ketones [Mass/volume] in Urine by negative negative Automated test strip (test code = 87682-1) Specific gravity of Urine by 1.018 1.003-1.030 Automated test strip (test code = 99984-6) blood urine (test code = blood trace negative urine) pH of Urine (test code = 2756-5) 5.500 5-9 protein urine (UA) (test code = trace negative protein urine (UA)) Urobilinogen [Presence] in Urine normal 0.2-1.0 (test code = 95956-9) Nitrite [Presence] in Urine by Test positive negative H strip (test code = 5802-4) Leukocyte esterase [Presence] in =4 negative H Urine by Automated test strip (test code = 80971-9) Erythrocytes [#/volume] in Urine by =6-10 0-5 H Automated count (test code = 798-9) Leukocytes [#/area] in Urine >50 0-5 H sediment by Automated count (test code = 37517-5) Epithelial cells [Presence] in Urine =1-5 0-5 sediment by Light microscopy (test code = 18531-0) Bacteria identified in Urine by tntc (4 none detect H Culture (test code = 630-4) Casts [#/area] in Urine sediment by =2-5 none detect Automated count (test code = 78087-9) urine culture added? (test code = yes urine culture added?) [facility] HospitalHemoglobin A1c [Mass/volume] in [id number] 08:46:00 Test Item Value Reference Range Interpretation Comments Hemoglobin A1c in Blood (test code = 5.1 % 4.0-6.0 73689-0) [facility]Com[facility] 2000 panel - Serum or [...] Serum or Plasma (test code = 6768-6) [facility] HospitalLipid 1996 panel - Serum or [id number] 08:46:00 Test Item Value Reference Range Interpretation Comments cholesterol level (test code = 139 mg/dL 150-200 L cholesterol level) triglycerides level (test code = 138 mg/dL <150 triglycerides level) HDL cholesterol (test code = HDL 74 mg/dL >65 cholesterol) LDL cholesterol direct (test code = 51 mg/dL <100 LDL cholesterol direct) cholesterol risk ratio (test code = 1.878 cholesterol risk ratio) [facility] HospitalThyrotropin [Units/volume] in Serum or [id number] 08:46:00 Test Item Value Reference Range Interpretation Comments Thyrotropin [Units/volume] in 0.15 uIU/mL 0.36-3.74 L Serum or Plasma (test code = 3016-3) [facility] HospitalCB W Auto Differential panel - [id number] 08:46:00 Test Item Value Reference Range Interpretation [...] 78-98 H [Entitic volume] (test code = 67355-6) Erythrocyte mean corpuscular 33.7 pg 26.2-33.4 H hemoglobin [Entitic mass] (test code = 83037-2) mean corpuscular HGB conc (test 32.1 g/dL 31.5-36.2 code = mean corpuscular HGB conc) red cell distribution width (test 12.3 % 11.5-15.5 code = red cell distribution width) Platelets [#/volume] in Blood (test 293 K/uL 137-338 code = 69574-0) Platelet mean volume [Entitic 5.6 fL 8.4-11.8 L volume] in Blood (test code = 30316-3) Neutrophils.band form/100 43.4 % 44.4-80.1 L leukocytes in Blood (test code = 55090-4) Lymphocytes/100 leukocytes in Body 42.6 % 10.0-50.0 fluid (test code = 23677-8) Monocytes/100 leukocytes in Blood 9.1 % 3.6-12.04 by Automated count (test code = 5905-5) Eosinophils/100 leukocytes in Blood 3.2 % 0.0-5.41 by Automated count (test code = 713-8) Basophils/100 leukocytes in Blood 1.8 % 0.0-0.79 H by Automated count (test code = 706-2) [facility] Groupdifferential panel, [id number] 08:46:00 NeutrophilsBandLymphocyteMonocyteEosinophilBasophilPlatelet EstimateMataCrossRoads Behavioral HealthUrinalysis macro (dipstick) panel - [id number] 08:46:00 Test Item Value Reference Range Interpretation Comments Color of Urine by Auto (test code = yellow 29014-8) Appearance of Urine (test code = cloudy clear A 5767-9) Glucose [Presence] in Urine by negative negative Automated test strip (test code = 86081-7) Bilirubin.total [Mass/volume] in negative negative Urine (test code = 1978-6) Ketones [Mass/volume] in Urine by negative negative Automated test strip (test code = 97950-1) Specific gravity of Urine by 1.018 1.003-1.030 Automated test strip (test code = 13607-0) blood urine (test code = blood trace negative urine) pH of Urine (test code = 2756-5) 5.500 5-9 protein urine (UA) (test code = trace negative protein urine (UA)) Urobilinogen [Presence] in Urine normal 0.2-1.0 (test code = 19988-2) Nitrite [Presence] in Urine by Test positive negative H strip (test code = 5802-4) Leukocyte esterase [Presence] in =4 negative H Urine by Automated test strip (test code = 77164-0) Erythrocytes [#/volume] in Urine by =6-10 0-5 H Automated count (test code = 798-9) Leukocytes [#/area] in Urine >50 0-5 H sediment by Automated count (test code = 53098-6) Epithelial cells [Presence] in Urine =1-5 0-5 sediment by Light microscopy (test code = 95986-4) Bacteria identified in Urine by tntc (4 none detect H Culture (test code = 630-4) Casts [#/area] in Urine sediment by =2-5 none detect Automated count (test code = 78884-2) urine culture added? (test code = yes urine culture added?) [facility] HospitalHemoglobin A1c [Mass/volume] in [id number] 08:46:00 Test Item Value Reference Range Interpretation Comments Hemoglobin A1c in Blood (test code = 5.1 % 4.0-6.0 10341-3) [facility] HospitalCom[facility] 2000 panel - Serum or [...] Serum or Plasma (test code = 6768-6) [facility] HospitalLipid 1996 panel - Serum or [id number] 08:46:00 Test Item Value Reference Range Interpretation Comments cholesterol level (test code = 139 mg/dL 150-200 L cholesterol level) triglycerides level (test code = 138 mg/dL <150 triglycerides level) HDL cholesterol (test code = HDL 74 mg/dL >65 cholesterol) LDL cholesterol direct (test code = 51 mg/dL <100 LDL cholesterol direct) cholesterol risk ratio (test code = 1.878 cholesterol risk ratio) [facility] HospitalThyrotropin [Units/volume] in Serum or [id number] 08:46:00 Test Item Value Reference Range Interpretation Comments Thyrotropin [Units/volume] in 0.15 uIU/mL 0.36-3.74 L Serum or Plasma (test code = 3016-3) [facility] HospitalBacteria identified in Urine by [id number] 08:46:00Bacteria Ur CultMississippi State Hospitalantibiotic sensitivity testing, [id number] 08:46:00 Test Item Value Reference Range Interpretation [...] Minimum inhibitory concentration (YUNG) (test code = 79990-5) Piperacillin+Tazobactam <16 [Susceptibility] by Minimum inhibitory concentration [...] <2 inhibitory concentration (YUNG) (test code = 24674-9) Aztreonam [Susceptibility] by Minimum <8 inhibitory concentration (YUNG) (test code = 44-8) [id number] (test code = lei7405) <4 Meropenem [Susceptibility] by Minimum <4 inhibitory concentration (YUNG) (test code = 6652-2) [facility] HospitalUrinalysis macro (dipstick) panel - [id number] 08:29:00 Test Item Value Reference Range Interpretation Comments Leukocytes (test code = Leukocytes) Trace Nitrite (test code = Nitrite) negative Urobilinogen (test code = .2 Urobilinogen) Protein (test code = Protein) Negative pH (test code = pH) 5.5 Blood (test code = Blood) Negative Specific Diagonal (test code = 1.020 Specific Diagonal) Ketone (test code = Ketone) Negative Bilirubin (test code = Bilirubin) Negative Glucose (test code = Glucose) Negative Appearance (test code = Appearance) Clear Color (test code = Color) Yellow [facility] HospitalUrinalysis macro (dipstick) panel - [id number] 01:20:00 Test Item Value Reference Range Interpretation Comments Color of Urine by Auto (test yellow code = 62737-5) Appearance of Urine (test code SL cloudy clear A = 5767-9) Glucose [Presence] in Urine by negative negative Automated test strip (test code = 25798-4) Bilirubin.total [Mass/volume] negative negative in Urine (test code = 1978-6) Ketones [Mass/volume] in Urine negative negative by Automated test strip (test code = 26569-3) Specific gravity of Urine by 1.015 1.003-1.030 Automated test strip (test code = 14754-2) blood urine (test code = blood =1 negative H urine) pH of Urine (test code = 5.500 5-9 2756-5) protein urine (UA) (test code = trace negative protein urine (UA)) Urobilinogen [Presence] in normal 0.2-1.0 Urine (test code = 08377-8) Nitrite [Presence] in Urine by negative negative Test strip (test code = 5802-4) Leukocyte esterase [Presence] =4 negative H in Urine by Automated test strip (test code = 20895-8) Erythrocytes [#/volume] in =15-19 0-5 H Urine by Automated count (test code = 798-9) Leukocytes [#/area] in Urine >50 0-5 H sediment by Automated count (test code = 59472-4) Epithelial cells [Presence] in =1-5 0-5 Urine sediment by Light microscopy (test code = 74641-7) Bacteria identified in Urine by tntc (4 none detect H Culture (test code = 630-4) Casts [#/area] in Urine none detected none detect sediment by Automated count (test code = 00693-3) urine culture added? (test code yes = urine culture added?) [facility] HospitalBacteria identified in Urine by [id number] 01:20:00Bacteria Ur [facility], [id number] 01:20:00 Test Item Value Reference Range Interpretation [...] Minimum inhibitory concentration (YUNG) (test code = 10422-9) Piperacillin+Tazobactam <16 [Susceptibility] by Minimum inhibitory concentration [...] <2 inhibitory concentration (YUNG) (test code = 73852-3) Aztreonam [Susceptibility] by Minimum <8 inhibitory concentration (YUNG) (test code = 44-8) [id number] (test code = tbx2636) <4 Meropenem [Susceptibility] by Minimum <4 inhibitory concentration (YUNG) (test code = 6652-2) [facility] HospitalUrinalysis macro (dipstick) panel - [id number] 01:20:00 Test Item Value Reference Range Interpretation Comments Color of Urine by Auto (test yellow code = 13854-1) Appearance of Urine (test code SL cloudy clear A = 5767-9) Glucose [Presence] in Urine by negative negative Automated test strip (test code = 58135-0) Bilirubin.total [Mass/volume] negative negative in Urine (test code = 1978-6) Ketones [Mass/volume] in Urine negative negative by Automated test strip (test code = 36524-6) Specific gravity of Urine by 1.015 1.003-1.030 Automated test strip (test code = 15027-8) blood urine (test code = blood =1 negative H urine) pH of Urine (test code = 5.500 5-9 2756-5) protein urine (UA) (test code = trace negative protein urine (UA)) Urobilinogen [Presence] in normal 0.2-1.0 Urine (test code = 45461-3) Nitrite [Presence] in Urine by negative negative Test strip (test code = 5802-4) Leukocyte esterase [Presence] =4 negative H in Urine by Automated test strip (test code = 85663-7) Erythrocytes [#/volume] in =15-19 0-5 H Urine by Automated count (test code = 798-9) Leukocytes [#/area] in Urine >50 0-5 H sediment by Automated count (test code = 83977-6) Epithelial cells [Presence] in =1-5 0-5 Urine sediment by Light microscopy (test code = 58648-2) Bacteria identified in Urine by tntc (4 none detect H Culture (test code = 630-4) Casts [#/area] in Urine none detected none detect sediment by Automated count (test code = 23863-9) urine culture added? (test code yes = urine culture added?) [facility] HospitalB[facility] identified in Urine by [id number] 01:20:00Bacteria Ur [facility]antib[facility], [id number] 01:20:00 Test Item Value Reference Range Interpretation [...] Minimum inhibitory concentration (YUNG) (test code = 43083-5) Piperacillin+Tazobactam <16 [Susceptibility] by Minimum inhibitory concentration [...] <2 inhibitory concentration (YUNG) (test code = 86230-5) Aztreonam [Susceptibility] by Minimum <8 inhibitory concentration (YUNG) (test code = 44-8) [id number] (test code = rij7798) <4 Meropenem [Susceptibility] by Minimum <4 inhibitory concentration (YUNG) (test code = 6652-2) [facility] BANK [id number] 12:30:00 Test Item Value Reference Range Interpretation Comments Path AB (test code Blood Bank Service Note: An = Path AB) anti-D is detected in this patient's serum. This antibody is directed against the D antigen of the "Rh" blood group system. It is typically IgG in nature and forms in response to RBC sensitization via prior transfusion or . Anti-D is considered a clinically significant antibody; it has been associated with hemolytic disease of the (HDN) and hemolytic transfusion reactions. 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 Should RBC transfusion be necessary, D-negative crossmatch-compatible blood will be issued. No difficulty in obtaining compatible blood is expected. The patient s electronic medical record has been reviewed for relevant information. Perry Haynes MD PGY3 I have reviewed the test results and concur with the resident's interpretation. CPT: 42480-GG [facility] [id number] 12:30:00 Test Item Value Reference Range Interpretation Comments Path AB (test code Blood Bank Service Note: An = Path AB) anti-D is detected in this patient's serum. This antibody is directed against the D antigen of the "Rh" blood group system. It is typically IgG in nature and forms in response to RBC sensitization via prior transfusion or . Anti-D is considered a clinically significant antibody; it has been associated with hemolytic disease of the (HDN) and hemolytic transfusion reactions. 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 Should RBC transfusion be necessary, D-negative crossmatch-compatible blood will be issued. No difficulty in obtaining compatible blood is expected. The patient s electronic medical record has been reviewed for relevant information. Perry Haynes MD PGY3 I have reviewed the test results and concur with the resident's interpretation. CPT: 70630[facility] [id number] 12:30:00 Test Item Value Reference Range Interpretation Comments Path AB (test code Blood Bank Service Note: An = Path AB) anti-D is detected in this patient's serum. This antibody is directed against the D antigen of the "Rh" blood group system. It is typically IgG in nature and forms in response to RBC sensitization via prior transfusion or . Anti-D is considered a clinically significant antibody; it has been associated with hemolytic disease of the (HDN) and hemolytic transfusion reactions. 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 Should RBC transfusion be necessary, D-negative crossmatch-compatible blood will be issued. No difficulty in obtaining compatible blood is expected. The patient s electronic medical record has been reviewed for relevant information. Perry Haynes MD PGY3 I have reviewed the test results and concur with the resident's interpretation. CPT: 21421[facility] [id number] 12:30:00 Test Item Value Reference Range Interpretation Comments Path AB (test code Blood Bank Service Note: An = Path AB) anti-D is detected in this patient's serum. This antibody is directed against the D antigen of the "Rh" blood group system. It is typically IgG in nature and forms in response to RBC sensitization via prior transfusion or . Anti-D is considered a clinically significant antibody; it has been associated with hemolytic disease of the (HDN) and hemolytic transfusion reactions. 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 Should RBC transfusion be necessary, D-negative crossmatch-compatible blood will be issued. No difficulty in obtaining compatible blood is expected. The patient s electronic medical record has been reviewed for relevant information. Perry Haynes MD PGY3 I have reviewed the test results and concur with the resident's interpretation. CPT: 13120[facility] [id number] 12:30:00 Test Item Value Reference Range Interpretation Comments Path AB (test code Blood Bank Service Note: An = Path AB) anti-D is detected in this patient's serum. This antibody is directed against the D antigen of the "Rh" blood group system. It is typically IgG in nature and forms in response to RBC sensitization via prior transfusion or . Anti-D is considered a clinically significant antibody; it has been associated with hemolytic disease of the (HDN) and hemolytic transfusion reactions. 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 Should RBC transfusion be necessary, D-negative crossmatch-compatible blood will be issued. No difficulty in obtaining compatible blood is expected. The patient s electronic medical record has been reviewed for relevant information. Perry Haynes MD PGY3 I have reviewed the test results and concur with the resident's interpretation. CPT: 97725-[facility]SEW[facility] CenterN[facility] [id number] 12:30:00 Test Item Value Reference Range Interpretation Comments Path AB (test code Blood Bank Service Note: An = Path AB) anti-D is detected in this patient's serum. This antibody is directed against the D antigen of the "Rh" blood group system. It is typically IgG in nature and forms in response to RBC sensitization via prior transfusion or . Anti-D is considered a clinically significant antibody; it has been associated with hemolytic disease of the (HDN) and hemolytic transfusion reactions. 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 Should RBC transfusion be necessary, D-negative crossmatch-compatible blood will be issued. No difficulty in obtaining compatible blood is expected. The patient s electronic medical record has been reviewed for relevant information. Perry Haynes MD PGY3 I have reviewed the test results and concur with the resident's interpretation. CPT: 57938-[facility]SS[facility] [id number] 12:30:00 Test Item Value Reference Range Interpretation Comments Path AB (test code Blood Bank Service Note: An = Path AB) anti-D is detected in this patient's serum. This antibody is directed against the D antigen of the "Rh" blood group system. It is typically IgG in nature and forms in response to RBC sensitization via prior transfusion or . Anti-D is considered a clinically significant antibody; it has been associated with hemolytic disease of the (HDN) and hemolytic transfusion reactions. 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 Should RBC transfusion be necessary, D-negative crossmatch-compatible blood will be issued. No difficulty in obtaining compatible blood is expected. The patient s electronic medical record has been reviewed for relevant information. Perry Haynes MD PGY3 I have reviewed the test results and concur with the resident's interpretation. CPT: 20170-[facility] [id number] 12:30:00 Test Item Value Reference Range Interpretation Comments Path AB (test code Blood Bank Service Note: An = Path AB) anti-D is detected in this patient's serum. This antibody is directed against the D antigen of the "Rh" blood group system. It is typically IgG in nature and forms in response to RBC sensitization via prior transfusion or . Anti-D is considered a clinically significant antibody; it has been associated with hemolytic disease of the (HDN) and hemolytic transfusion reactions. 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 Should RBC transfusion be necessary, D-negative crossmatch-compatible blood will be issued. No difficulty in obtaining compatible blood is expected. The patient s electronic medical record has been reviewed for relevant information. Perry Haynes MD PGY3 I have reviewed the test results and concur with the resident's interpretation. CPT: 71954-TFSentara [facility]SEW[facility] CenterN[facility] [id number] 12:30:00 Test Item Value Reference Range Interpretation Comments Path AB (test code Blood Bank Service Note: An = Path AB) anti-D is detected in this patient's serum. This antibody is directed against the D antigen of the "Rh" blood group system. It is typically IgG in nature and forms in response to RBC sensitization via prior transfusion or . Anti-D is considered a clinically significant antibody; it has been associated with hemolytic disease of the (HDN) and hemolytic transfusion reactions. 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 Should RBC transfusion be necessary, D-negative crossmatch-compatible blood will be issued. No difficulty in obtaining compatible blood is expected. The patient s electronic medical record has been reviewed for relevant information. Perry Haynes MD PGY3 I have reviewed the test results and concur with the resident's interpretation. CPT: 85448-[facility]BMat[facility] [id number] 12:30:00 Test Item Value Reference Range Interpretation Comments Path AB (test code Blood Bank Service Note: An = Path AB) anti-D is detected in this patient's serum. This antibody is directed against the D antigen of the "Rh" blood group system. It is typically IgG in nature and forms in response to RBC sensitization via prior transfusion or . Anti-D is considered a clinically significant antibody; it has been associated with hemolytic disease of the (HDN) and hemolytic transfusion reactions. 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 Should RBC transfusion be necessary, D-negative crossmatch-compatible blood will be issued. No difficulty in obtaining compatible blood is expected. The patient s electronic medical record has been reviewed for relevant information. Perry Haynes MD PGY3 I have reviewed the test results and concur with the resident's interpretation. CPT: 47377-[facility]IMatag[facility] [id number] 12:30:00 Test Item Value Reference Range Interpretation Comments Path AB (test code Blood Bank Service Note: An = Path AB) anti-D is detected in this patient's serum. This antibody is directed against the D antigen of the "Rh" blood group system. It is typically IgG in nature and forms in response to RBC sensitization via prior transfusion or . Anti-D is considered a clinically significant antibody; it has been associated with hemolytic disease of the (HDN) and hemolytic transfusion reactions. 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 Should RBC transfusion be necessary, D-negative crossmatch-compatible blood will be issued. No difficulty in obtaining compatible blood is expected. The patient s electronic medical record has been reviewed for relevant information. Perry Haynes MD PGY3 I have reviewed the test results and concur with the resident's interpretation. CPT: 04783-MH [facility] BANK [id number] 12:30:00 Test Item Value Reference Range Interpretation Comments Path AB (test code Blood Bank Service Note: An = Path AB) anti-D is detected in this patient's serum. This antibody is directed against the D antigen of the "Rh" blood group system. It is typically IgG in nature and forms in response to RBC sensitization via prior transfusion or . Anti-D is considered a clinically significant antibody; it has been associated with hemolytic disease of the (HDN) and hemolytic transfusion reactions. 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 Should RBC transfusion be necessary, D-negative crossmatch-compatible blood will be issued. No difficulty in obtaining compatible blood is expected. The patient s electronic medical record has been reviewed for relevant information. Perry Haynes MD PGY3 I have reviewed the test results and concur with the resident's interpretation. CPT: 28289-RT [facility] AND [id number] 09:48:00 Test Item Value Reference Range Interpretation Comments UA Sq Epi (test code = UA Sq Epi) Rare /LPF [facility] AND [id number] 09:48:00 Test Item Value Reference Range Interpretation Comments UA Leuk Est (test Negative (02/29/16 4:48 code = UA Leuk Est) AM) [facility] AND [id number] 09:48:00 Test Item Value Reference Range Interpretation Comments UA Blood (test code = Negative (02/29/16 4:48 UA Blood) AM) [facility] AND [id number] 09:48:00 Test Item Value Reference Range Interpretation Comments UA Nitrite (test code Negative (02/29/16 4:48 = UA Nitrite) AM) [facility] AND [id number] 09:48:00 Test Item Value Reference Range Interpretation Comments UA Urobilinogen (test code = UA 0.2 0.1-1.0 Urobilinogen) [facility] AND [id number] 09:48:00 Test Item Value Reference Range Interpretation Comments UA Color (test code = Yellow *NA*(02/29/16 UA Color) 4:48 AM) [facility] AND [id number] 09:48:00 Test Item Value Reference Range Interpretation Comments UA Glucose (test code = UA Negative mg/dL Glucose) [facility] AND [id number] 09:48:00 Test Item Value Reference Range Interpretation Comments UA Bili (test code = Negative *NA*(02/29/16 UA Bili) 4:48 AM) [facility] AND [id number] 09:48:00 Test Item Value Reference Range Interpretation Comments UA Ketones (test code = UA Negative mg/dL Ketones) [facility] AND [id number] 09:48:00 Test Item Value Reference Range Interpretation Comments UA Spec Grav (test code = UA Spec 1.010 1 Grav) [facility] AND [id number] 09:48:00 Test Item Value Reference Range Interpretation Comments UA pH (test code = UA pH) 5.0 1 5.0-8.0 [facility] AND [id number] 09:48:00 Test Item Value Reference Range Interpretation Comments UA Protein (test code = UA Negative mg/dL Protein) [facility] AND [id number] 09:48:00 Test Item Value Reference Range Interpretation Comments UA Turbidity (test code = Clear (02/29/16 4:48 UA Turbidity) AM) [facility] AND [id number] 09:48:00 Test Item Value Reference Range Interpretation Comments UA Sq Epi (test code = UA Sq Epi) Rare /LPF [facility] AND [id number] 09:48:00 Test Item Value Reference Range Interpretation Comments UA Leuk Est (test Negative (02/29/16 4:48 code = UA Leuk Est) AM) [facility] AND [id number] 09:48:00 Test Item Value Reference Range Interpretation Comments UA Blood (test code = Negative (02/29/16 4:48 UA Blood) AM) [facility] AND [id number] 09:48:00 Test Item Value Reference Range Interpretation Comments UA Nitrite (test code Negative (02/29/16 4:48 = UA Nitrite) AM) [facility] AND [id number] 09:48:00 Test Item Value Reference Range Interpretation Comments UA Urobilinogen (test code = UA 0.2 0.1-1.0 Urobilinogen) [facility] AND [id number] 09:48:00 Test Item Value Reference Range Interpretation Comments UA Color (test code = Yellow *NA*(02/29/16 UA Color) 4:48 AM) [facility] AND [id number] 09:48:00 Test Item Value Reference Range Interpretation Comments UA Glucose (test code = UA Negative mg/dL Glucose) [facility] AND [id number] 09:48:00 Test Item Value Reference Range Interpretation Comments UA Bili (test code = Negative *NA*(02/29/16 UA Bili) 4:48 AM) [facility] AND [id number] 09:48:00 Test Item Value Reference Range Interpretation Comments UA Ketones (test code = UA Negative mg/dL Ketones) [facility] AND [id number] 09:48:00 Test Item Value Reference Range Interpretation Comments UA Spec Grav (test code = UA Spec 1.010 1 Grav) [facility] AND [id number] 09:48:00 Test Item Value Reference Range Interpretation Comments UA pH (test code = UA pH) 5.0 1 5.0-8.0 [facility] AND [id number] 09:48:00 Test Item Value Reference Range Interpretation Comments UA Protein (test code = UA Negative mg/dL Protein) [facility] AND [id number] 09:48:00 Test Item Value Reference Range Interpretation Comments UA Turbidity (test code = Clear (02/29/16 4:48 UA Turbidity) AM) [facility] AND [id number] 09:48:00 Test Item Value Reference Range Interpretation Comments UA Sq Epi (test code = UA Sq Epi) Rare /LPF [facility] AND [id number] 09:48:00 Test Item Value Reference Range Interpretation Comments UA Leuk Est (test Negative (02/29/16 4:48 code = UA Leuk Est) AM) [facility] AND [id number] 09:48:00 Test Item Value Reference Range Interpretation Comments UA Blood (test code = Negative (02/29/16 4:48 UA Blood) AM) [facility] AND [id number] 09:48:00 Test Item Value Reference Range Interpretation Comments UA Nitrite (test code Negative (02/29/16 4:48 = UA Nitrite) AM) [facility] AND [id number] 09:48:00 Test Item Value Reference Range Interpretation Comments UA Urobilinogen (test code = UA 0.2 0.1-1.0 Urobilinogen) [facility] AND [id number] 09:48:00 Test Item Value Reference Range Interpretation Comments UA Color (test code = Yellow *NA*(02/29/16 UA Color) 4:48 AM) [facility] AND [id number] 09:48:00 Test Item Value Reference Range Interpretation Comments UA Glucose (test code = UA Negative mg/dL Glucose) [facility] AND [id number] 09:48:00 Test Item Value Reference Range Interpretation Comments UA Bili (test code = Negative *NA*(02/29/16 UA Bili) 4:48 AM) [facility] AND [id number] 09:48:00 Test Item Value Reference Range Interpretation Comments UA Ketones (test code = UA Negative mg/dL Ketones) [facility] AND [id number] 09:48:00 Test Item Value Reference Range Interpretation Comments UA Spec Grav (test code = UA Spec 1.010 1 Grav) [facility] AND [id number] 09:48:00 Test Item Value Reference Range Interpretation Comments UA pH (test code = UA pH) 5.0 1 5.0-8.0 [facility] AND [id number] 09:48:00 Test Item Value Reference Range Interpretation Comments UA Protein (test code = UA Negative mg/dL Protein) [facility] AND [id number] 09:48:00 Test Item Value Reference Range Interpretation Comments UA Turbidity (test code = Clear (02/29/16 4:48 UA Turbidity) AM) [facility] AND [id number] 09:48:00 Test Item Value Reference Range Interpretation Comments UA Sq Epi (test code = UA Sq Epi) Rare /LPF [facility] AND [id number] 09:48:00 Test Item Value Reference Range Interpretation Comments UA Leuk Est (test Negative (02/29/16 4:48 code = UA Leuk Est) AM) [facility] AND [id number] 09:48:00 Test Item Value Reference Range Interpretation Comments UA Blood (test code = Negative (02/29/16 4:48 UA Blood) AM) [facility] AND [id number] 09:48:00 Test Item Value Reference Range Interpretation Comments UA Nitrite (test code Negative (02/29/16 4:48 = UA Nitrite) AM) [facility] AND [id number] 09:48:00 Test Item Value Reference Range Interpretation Comments UA Urobilinogen (test code = UA 0.2 0.1-1.0 Urobilinogen) [facility] AND [id number] 09:48:00 Test Item Value Reference Range Interpretation Comments UA Color (test code = Yellow *NA*(02/29/16 UA Color) 4:48 AM) [facility] AND [id number] 09:48:00 Test Item Value Reference Range Interpretation Comments UA Glucose (test code = UA Negative mg/dL Glucose) [facility] AND [id number] 09:48:00 Test Item Value Reference Range Interpretation Comments UA Bili (test code = Negative *NA*(02/29/16 UA Bili) 4:48 AM) [facility] AND [id number] 09:48:00 Test Item Value Reference Range Interpretation Comments UA Ketones (test code = UA Negative mg/dL Ketones) [facility] AND [id number] 09:48:00 Test Item Value Reference Range Interpretation Comments UA Spec Grav (test code = UA Spec 1.010 1 Grav) [facility] AND [id number] 09:48:00 Test Item Value Reference Range Interpretation Comments UA pH (test code = UA pH) 5.0 1 5.0-8.0 [facility] AND [id number] 09:48:00 Test Item Value Reference Range Interpretation Comments UA Protein (test code = UA Negative mg/dL Protein) [facility] AND [id number] 09:48:00 Test Item Value Reference Range Interpretation Comments UA Turbidity (test code = Clear (02/29/16 4:48 UA Turbidity) AM) [facility] AND [id number] 09:48:00 Test Item Value Reference Range Interpretation Comments UA Sq Epi (test code = UA Sq Epi) Rare /LPF [facility] AND [id number] 09:48:00 Test Item Value Reference Range Interpretation Comments UA Leuk Est (test Negative (02/29/16 4:48 code = UA Leuk Est) AM) [facility] AND [id number] 09:48:00 Test Item Value Reference Range Interpretation Comments UA Blood (test code = Negative (02/29/16 4:48 UA Blood) AM) [facility] AND [id number] 09:48:00 Test Item Value Reference Range Interpretation Comments UA Nitrite (test code Negative (02/29/16 4:48 = UA Nitrite) AM) [facility] AND [id number] 09:48:00 Test Item Value Reference Range Interpretation Comments UA Urobilinogen (test code = UA 0.2 0.1-1.0 Urobilinogen) [facility] AND [id number] 09:48:00 Test Item Value Reference Range Interpretation Comments UA Color (test code = Yellow *NA*(02/29/16 UA Color) 4:48 AM) [facility] AND [id number] 09:48:00 Test Item Value Reference Range Interpretation Comments UA Glucose (test code = UA Negative mg/dL Glucose) [facility] AND [id number] 09:48:00 Test Item Value Reference Range Interpretation Comments UA Bili (test code = Negative *NA*(02/29/16 UA Bili) 4:48 AM) [facility] AND [id number] 09:48:00 Test Item Value Reference Range Interpretation Comments UA Ketones (test code = UA Negative mg/dL Ketones) [facility] AND [id number] 09:48:00 Test Item Value Reference Range Interpretation Comments UA Spec Grav (test code = UA Spec 1.010 1 Grav) [facility] AND [id number] 09:48:00 Test Item Value Reference Range Interpretation Comments UA pH (test code = UA pH) 5.0 1 5.0-8.0 [facility] AND [id number] 09:48:00 Test Item Value Reference Range Interpretation Comments UA Protein (test code = UA Negative mg/dL Protein) [facility] AND [id number] 09:48:00 Test Item Value Reference Range Interpretation Comments UA Turbidity (test code = Clear (02/29/16 4:48 UA Turbidity) AM) [facility] AND [id number] 09:48:00 Test Item Value Reference Range Interpretation Comments UA Sq Epi (test code = UA Sq Epi) Rare /LPF [facility] AND [id number] 09:48:00 Test Item Value Reference Range Interpretation Comments UA Leuk Est (test Negative (02/29/16 4:48 code = UA Leuk Est) AM) [facility] AND [id number] 09:48:00 Test Item Value Reference Range Interpretation Comments UA Blood (test code = Negative (02/29/16 4:48 UA Blood) AM) [facility] AND [id number] 09:48:00 Test Item Value Reference Range Interpretation Comments UA Nitrite (test code Negative (02/29/16 4:48 = UA Nitrite) AM) [facility] AND [id number] 09:48:00 Test Item Value Reference Range Interpretation Comments UA Urobilinogen (test code = UA 0.2 0.1-1.0 Urobilinogen) [facility] AND [id number] 09:48:00 Test Item Value Reference Range Interpretation Comments UA Color (test code = Yellow *NA*(02/29/16 UA Color) 4:48 AM) [facility] AND [id number] 09:48:00 Test Item Value Reference Range Interpretation Comments UA Glucose (test code = UA Negative mg/dL Glucose) [facility] AND [id number] 09:48:00 Test Item Value Reference Range Interpretation Comments UA Bili (test code = Negative *NA*(02/29/16 UA Bili) 4:48 AM) [facility] AND [id number] 09:48:00 Test Item Value Reference Range Interpretation Comments UA Ketones (test code = UA Negative mg/dL Ketones) [facility] AND [id number] 09:48:00 Test Item Value Reference Range Interpretation Comments UA Spec Grav (test code = UA Spec 1.010 1 Grav) [facility] AND [id number] 09:48:00 Test Item Value Reference Range Interpretation Comments UA pH (test code = UA pH) 5.0 1 5.0-8.0 [facility] AND [id number] 09:48:00 Test Item Value Reference Range Interpretation Comments UA Protein (test code = UA Negative mg/dL Protein) [facility] AND [id number] 09:48:00 Test Item Value Reference Range Interpretation Comments UA Turbidity (test code = Clear (02/29/16 4:48 UA Turbidity) AM) [facility] AND [id number] 09:48:00 Test Item Value Reference Range Interpretation Comments UA Sq Epi (test code = UA Sq Epi) Rare /LPF [facility] AND [id number] 09:48:00 Test Item Value Reference Range Interpretation Comments UA Leuk Est (test Negative (02/29/16 4:48 code = UA Leuk Est) AM) [facility] [id number] 09:48:00 Test Item Value Reference Range Interpretation Comments UA Blood (test code = Negative (02/29/16 4:48 UA Blood) AM) [facility] [id number] 09:48:00 Test Item Value Reference Range Interpretation Comments UA Nitrite (test code Negative (02/29/16 4:48 = UA Nitrite) AM) [facility] AND [id number] 09:48:00 Test Item Value Reference Range Interpretation Comments UA Urobilinogen (test code = UA 0.2 0.1-1.0 Urobilinogen) [facility] AND [id number] 09:48:00 Test Item Value Reference Range Interpretation Comments UA Color (test code = Yellow *NA*(02/29/16 UA Color) 4:48 AM) [facility] [id number] 09:48:00 Test Item Value Reference Range Interpretation Comments UA Glucose (test code = UA Negative mg/dL Glucose) [facility] [id number] 09:48:00 Test Item Value Reference Range Interpretation Comments UA Bili (test code = Negative *NA*(02/29/16 UA Bili) 4:48 AM) [facility] AND [id number] 09:48:00 Test Item Value Reference Range Interpretation Comments UA Ketones (test code = UA Negative mg/dL Ketones) [facility] [id number] 09:48:00 Test Item Value Reference Range Interpretation Comments UA Spec Grav (test code = UA Spec 1.010 1 Grav) [facility] [id number] 09:48:00 Test Item Value Reference Range Interpretation Comments UA pH (test code = UA pH) 5.0 1 5.0-8.0 [facility] AND [id number] 09:48:00 Test Item Value Reference Range Interpretation Comments UA Protein (test code = UA Negative mg/dL Protein) [facility] [id number] 09:48:00 Test Item Value Reference Range Interpretation Comments UA Turbidity (test code = Clear (02/29/16 4:48 UA Turbidity) AM) [facility] [id number] 09:48:00 Test Item Value Reference Range Interpretation Comments UA Sq Epi (test code = UA Sq Epi) Rare /LPF [facility] [id number] 09:48:00 Test Item Value Reference Range Interpretation Comments UA Leuk Est (test Negative (02/29/16 4:48 code = UA Leuk Est) AM) [facility] [id number] 09:48:00 Test Item Value Reference Range Interpretation Comments UA Blood (test code = Negative (02/29/16 4:48 UA Blood) AM) [facility] [id number] 09:48:00 Test Item Value Reference Range Interpretation Comments UA Nitrite (test code Negative (02/29/16 4:48 = UA Nitrite) AM) [facility] [id number] 09:48:00 Test Item Value Reference Range Interpretation Comments UA Urobilinogen (test code = UA 0.2 0.1-1.0 Urobilinogen) [facility] [id number] 09:48:00 Test Item Value Reference Range Interpretation Comments UA Color (test code = Yellow *NA*(02/29/16 UA Color) 4:48 AM) [facility] [id number] 09:48:00 Test Item Value Reference Range Interpretation Comments UA Glucose (test code = UA Negative mg/dL Glucose) [facility] [id number] 09:48:00 Test Item Value Reference Range Interpretation Comments UA Bili (test code = Negative *NA*(02/29/16 UA Bili) 4:48 AM) [facility] [id number] 09:48:00 Test Item Value Reference Range Interpretation Comments UA Ketones (test code = UA Negative mg/dL Ketones) [facility] [id number] 09:48:00 Test Item Value Reference Range Interpretation Comments UA Spec Grav (test code = UA Spec 1.010 1 Grav) [facility] [id number] 09:48:00 Test Item Value Reference Range Interpretation Comments UA pH (test code = UA pH) 5.0 1 5.0-8.0 [facility] [id number] 09:48:00 Test Item Value Reference Range Interpretation Comments UA Protein (test code = UA Negative mg/dL Protein) [facility] [id number] 09:48:00 Test Item Value Reference Range Interpretation Comments UA Turbidity (test code = Clear (02/29/16 4:48 UA Turbidity) AM) [facility] [id number] 09:48:00 Test Item Value Reference Range Interpretation Comments UA Sq Epi (test code = UA Sq Epi) Rare /LPF [facility] [id number] 09:48:00 Test Item Value Reference Range Interpretation Comments UA Leuk Est (test Negative (02/29/16 4:48 code = UA Leuk Est) AM) [facility] [id number] 09:48:00 Test Item Value Reference Range Interpretation Comments UA Blood (test code = Negative (02/29/16 4:48 UA Blood) AM) [facility] [id number] 09:48:00 Test Item Value Reference Range Interpretation Comments UA Nitrite (test code Negative (02/29/16 4:48 = UA Nitrite) AM) [facility] [id number] 09:48:00 Test Item Value Reference Range Interpretation Comments UA Urobilinogen (test code = UA 0.2 0.1-1.0 Urobilinogen) [facility] [id number] 09:48:00 Test Item Value Reference Range Interpretation Comments UA Color (test code = Yellow *NA*(02/29/16 UA Color) 4:48 AM) [facility] [id number] 09:48:00 Test Item Value Reference Range Interpretation Comments UA Glucose (test code = UA Negative mg/dL Glucose) [facility] [id number] 09:48:00 Test Item Value Reference Range Interpretation Comments UA Bili (test code = Negative *NA*(02/29/16 UA Bili) 4:48 AM) [facility] [id number] 09:48:00 Test Item Value Reference Range Interpretation Comments UA Ketones (test code = UA Negative mg/dL Ketones) [facility] [id number] 09:48:00 Test Item Value Reference Range Interpretation Comments UA Spec Grav (test code = UA Spec 1.010 1 Grav) [facility] [id number] 09:48:00 Test Item Value Reference Range Interpretation Comments UA pH (test code = UA pH) 5.0 1 5.0-8.0 [facility] [id number] 09:48:00 Test Item Value Reference Range Interpretation Comments UA Protein (test code = UA Negative mg/dL Protein) [facility] [id number] 09:48:00 Test Item Value Reference Range Interpretation Comments UA Turbidity (test code = Clear (02/29/16 4:48 UA Turbidity) AM) [facility] [id number] 09:48:00 Test Item Value Reference Range Interpretation Comments UA Sq Epi (test code = UA Sq Epi) Rare /LPF [facility] [id number] 09:48:00 Test Item Value Reference Range Interpretation Comments UA Leuk Est (test Negative (02/29/16 4:48 code = UA Leuk Est) AM) [facility] [id number] 09:48:00 Test Item Value Reference Range Interpretation Comments UA Blood (test code = Negative (02/29/16 4:48 UA Blood) AM) [facility] [id number] 09:48:00 Test Item Value Reference Range Interpretation Comments UA Nitrite (test code Negative (02/29/16 4:48 = UA Nitrite) AM) [facility] [id number] 09:48:00 Test Item Value Reference Range Interpretation Comments UA Urobilinogen (test code = UA 0.2 0.1-1.0 Urobilinogen) [facility] [id number] 09:48:00 Test Item Value Reference Range Interpretation Comments UA Color (test code = Yellow *NA*(02/29/16 UA Color) 4:48 AM) [facility] [id number] 09:48:00 Test Item Value Reference Range Interpretation Comments UA Glucose (test code = UA Negative mg/dL Glucose) [facility] [id number] 09:48:00 Test Item Value Reference Range Interpretation Comments UA Bili (test code = Negative *NA*(02/29/16 UA Bili) 4:48 AM) [facility] [id number] 09:48:00 Test Item Value Reference Range Interpretation Comments UA Ketones (test code = UA Negative mg/dL Ketones) [facility] [id number] 09:48:00 Test Item Value Reference Range Interpretation Comments UA Spec Grav (test code = UA Spec 1.010 1 Grav) [facility] [id number] 09:48:00 Test Item Value Reference Range Interpretation Comments UA pH (test code = UA pH) 5.0 1 5.0-8.0 [facility] [id number] 09:48:00 Test Item Value Reference Range Interpretation Comments UA Protein (test code = UA Negative mg/dL Protein) [facility] [id number] 09:48:00 Test Item Value Reference Range Interpretation Comments UA Turbidity (test code = Clear (02/29/16 4:48 UA Turbidity) AM) [facility] [id number] 09:48:00 Test Item Value Reference Range Interpretation Comments UA Sq Epi (test code = UA Sq Epi) Rare /LPF [facility] [id number] 09:48:00 Test Item Value Reference Range Interpretation Comments UA Leuk Est (test Negative (02/29/16 4:48 code = UA Leuk Est) AM) [facility] AND [id number] 09:48:00 Test Item Value Reference Range Interpretation Comments UA Blood (test code = Negative (02/29/16 4:48 UA Blood) AM) [facility] AND [id number] 09:48:00 Test Item Value Reference Range Interpretation Comments UA Nitrite (test code Negative (02/29/16 4:48 = UA Nitrite) AM) [facility] AND [id number] 09:48:00 Test Item Value Reference Range Interpretation Comments UA Urobilinogen (test code = UA 0.2 0.1-1.0 Urobilinogen) [facility] AND [id number] 09:48:00 Test Item Value Reference Range Interpretation Comments UA Color (test code = Yellow *NA*(02/29/16 UA Color) 4:48 AM) [facility] AND [id number] 09:48:00 Test Item Value Reference Range Interpretation Comments UA Glucose (test code = UA Negative mg/dL Glucose) [facility] AND [id number] 09:48:00 Test Item Value Reference Range Interpretation Comments UA Bili (test code = Negative *NA*(02/29/16 UA Bili) 4:48 AM) [facility] AND [id number] 09:48:00 Test Item Value Reference Range Interpretation Comments UA Ketones (test code = UA Negative mg/dL Ketones) [facility] AND [id number] 09:48:00 Test Item Value Reference Range Interpretation Comments UA Spec Grav (test code = UA Spec 1.010 1 Grav) [facility] AND [id number] 09:48:00 Test Item Value Reference Range Interpretation Comments UA pH (test code = UA pH) 5.0 1 5.0-8.0 [facility] AND [id number] 09:48:00 Test Item Value Reference Range Interpretation Comments UA Protein (test code = UA Negative mg/dL Protein) [facility] AND [id number] 09:48:00 Test Item Value Reference Range Interpretation Comments UA Turbidity (test code = Clear (02/29/16 4:48 UA Turbidity) AM) [facility] AND [id number] 09:48:00 Test Item Value Reference Range Interpretation Comments UA Sq Epi (test code = UA Sq Epi) Rare /LPF [facility] AND [id number] 09:48:00 Test Item Value Reference Range Interpretation Comments UA Leuk Est (test Negative (02/29/16 4:48 code = UA Leuk Est) AM) [facility] AND [id number] 09:48:00 Test Item Value Reference Range Interpretation Comments UA Blood (test code = Negative (02/29/16 4:48 UA Blood) AM) [facility] AND [id number] 09:48:00 Test Item Value Reference Range Interpretation Comments UA Nitrite (test code Negative (02/29/16 4:48 = UA Nitrite) AM) [facility] AND [id number] 09:48:00 Test Item Value Reference Range Interpretation Comments UA Urobilinogen (test code = UA 0.2 0.1-1.0 Urobilinogen) [facility] AND [id number] 09:48:00 Test Item Value Reference Range Interpretation Comments UA Color (test code = Yellow *NA*(02/29/16 UA Color) 4:48 AM) [facility] AND [id number] 09:48:00 Test Item Value Reference Range Interpretation Comments UA Glucose (test code = UA Negative mg/dL Glucose) [facility] AND [id number] 09:48:00 Test Item Value Reference Range Interpretation Comments UA Bili (test code = Negative *NA*(02/29/16 UA Bili) 4:48 AM) [facility] AND [id number] 09:48:00 Test Item Value Reference Range Interpretation Comments UA Ketones (test code = UA Negative mg/dL Ketones) [facility] AND [id number] 09:48:00 Test Item Value Reference Range Interpretation Comments UA Spec Grav (test code = UA Spec 1.010 1 Grav) [facility] AND [id number] 09:48:00 Test Item Value Reference Range Interpretation Comments UA pH (test code = UA pH) 5.0 1 5.0-8.0 [facility] AND [id number] 09:48:00 Test Item Value Reference Range Interpretation Comments UA Protein (test code = UA Negative mg/dL Protein) [facility] AND [id number] 09:48:00 Test Item Value Reference Range Interpretation Comments UA Turbidity (test code = Clear (02/29/16 4:48 UA Turbidity) AM) [facility] [id number] 08:48:00 Test Item Value Reference Range Interpretation Comments Antibody Scrn (test Positive 1(02/29/16 code = Antibody Scrn) 3:48 AM) [facility] [id number] 08:48:00 Test Item Value Reference Range Interpretation Comments ABO/Rh (test code = ABO/Rh) A NEG [facility] ResourcesFotvwrvVACNCFVGIUSK1105-77-92 08:48:00 Test Item Value Reference Range Interpretation Comments CO2 (test code = CO2) 24 24-32 [facility]WobffviHFIMQRMAPBTD2790-90-82 08:48:00 Test Item Value Reference Range Interpretation Comments Calcium Lvl (test code = Calcium Lvl) 8.4 8.5-10.5 [facility] HospitalLlrmkabQVELXMOOASBV4626-10-23 08:48:00 Test Item Value Reference Range Interpretation Comments eGFR (test code = eGFR) 49 [facility]lbjiabEXRLYDBADZTZ4499-08-06 08:48:00 Test Item Value Reference Range Interpretation Comments Sodium Lvl (test code = Sodium Lvl) 140 135-145 [facility]JhuwdfyYMGEMRJCIFSQ4809-78-34 08:48:00 Test Item Value Reference Range Interpretation Comments Creatinine Lvl (test code = Creatinine 1.09 0.50-1.40 Lvl) [facility]UrhonytGNNIGYWTALMX1654-28-45 08:48:00 Test Item Value Reference Range Interpretation Comments BUN (test code = BUN) 40 7-22 [facility] HospitalRahzjixIDINOPLAHKWK4566-84-45 08:48:00 Test Item Value Reference Range Interpretation Comments Chloride Lvl (test code = Chloride Lvl) 106 95-109 [facility] HospitalPbdcchzGMCEJTSFDFLQ2460-89-50 08:48:00 Test Item Value Reference Range Interpretation Comments Potassium Lvl (test code = Potassium 3.9 3.5-5.1 Lvl) [facility] HospitalIytqewrPADNDVHNROIE1920-93-00 08:48:00 Test Item Value Reference Range Interpretation Comments Glucose Lvl (test code = Glucose Lvl) 85 70-99 [facility] HospitalTwibobuNUGNGMDNDPPV7951-03-00 08:48:00 Test Item Value Reference Range Interpretation Comments AGAP (test code = AGAP) 13.9 10.0-20.0 [facility]XbzlfrqPIVDLBQMWB4002-86-72 08:48:00 Test Item Value Reference Range Interpretation Comments Eosinophils # (test code 0.1 See_Comment [A utomated message] The = Eosinophils #) system whic h generated this result tra nsmitted reference range : <=0.5. The reference r patria was not used to int erpret this result as normal/abnormal . [facility] CenterXopukctKOSNMDPYOY0671-06-36 08:48:00 Test Item Value Reference Range Interpretation Comments Basophils # (test code 0.0 See_Comment [Aut omated message] The = Basophils #) system which generated this result tra nsmitted reference range : <=0.2. The reference r patria was not used to int erpret this result as normal/abnormal . [facility] CenterOaldbnnSNZWZWYDDO9932-23-10 08:48:00 Test Item Value Reference Range Interpretation Comments Basophils (test code = 0.2 See_Comment [Aut omated message] The Basophils) system which ge nerated this result tra nsmitted reference range : <=1.0. The reference r patria was not used to int erpret this result as normal/abnormal . [facility] CenterGbiwmptOVVFOYDZGL3352-56-78 08:48:00 Test Item Value Reference Range Interpretation Comments Eosinophils (test code = 1.4 See_Comment [A utomated message] The Eosinophils) system which ge nerated this result tra nsmitted reference range : <=4.0. The reference r patria was not used to int erpret this result as normal/abnormal . [facility] CenterWhmgensWKFVGJUKWF0390-12-96 08:48:00 Test Item Value Reference Range Interpretation Comments Monocytes (test code = Monocytes) 11.8 2.0-12.0 [facility] CenterXltjdpwJCOAVNRMXC5375-35-35 08:48:00 Test Item Value Reference Range Interpretation Comments Lymphocytes (test code = Lymphocytes) 17.2 20.0-40.0 [facility] CenterYeymlxoDYNSKECUEX9676-34-08 08:48:00 Test Item Value Reference Range Interpretation Comments Segs (test code = Segs) 69.4 45.0-75.0 [facility] CenterYjvbdlgSCUEQMORWW3495-81-67 08:48:00 Test Item Value Reference Range Interpretation Comments Lymphocytes # (test code = Lymphocytes 1.0 1.0-5.5 #) [facility] CenterVfkpamyVVGKFEJURN1469-72-19 08:48:00 Test Item Value Reference Range Interpretation Comments Segs-Bands # (test code = Segs-Bands #) 3.8 1.5-8.1 [facility] CenterOkgphnbDNSSOJXFNO0015-66-91 08:48:00 Test Item Value Reference Range Interpretation Comments Monocytes # (test code 0.7 See_Comment [Aut omated message] The = Monocytes #) system which generated this result tra nsmitted reference range : <=0.8. The reference r patira was not used to int erpret this result as normal/abnormal . [facility] CenterQqltauuQTMAYFNXFS6189-22-66 08:48:00 Test Item Value Reference Range Interpretation Comments PROTIME (test code = PROTIME) 15.6 s 12.0-14.7 [facility] CenterTdrqqmiKLVXZQYXGN5683-41-28 08:48:00 Test Item Value Reference Range Interpretation Comments INR (test code = INR) 1.21 0.85-1.17 [facility] CenterSfzqjlwCYLITCVJWC2498-84-67 08:48:00 Test Item Value Reference Range Interpretation Comments MPV (test code = MPV) 9.5 7.4-10.4 [facility] CenterDdttettHJRWXZYQCK7581-72-55 08:48:00 Test Item Value Reference Range Interpretation Comments Platelet (test code = Platelet) 133 133-450 [facility] CenterCrpusokJFXONWFLVL2951-97-61 08:48:00 Test Item Value Reference Range Interpretation Comments RDW (test code = RDW) 12.1 11.5-14.5 [facility] CenterTamrsrkIILFANMYKJ7229-65-47 08:48:00 Test Item Value Reference Range Interpretation Comments RBC X 10x6 (test code = RBC X 10x6) 3.17 4.20-5.40 [facility] CenterNednpevDRTOUDCTNT7721-06-65 08:48:00 Test Item Value Reference Range Interpretation Comments Hct (test code = Hct) 33.5 36.0-48.0 [facility] CenterWcodzvcHFXOTQTNPJ8259-56-08 08:48:00 Test Item Value Reference Range Interpretation Comments Hgb (test code = Hgb) 10.8 12.0-16.0 [facility] CenterBdpgupsBIIHSVGZXD5295-89-92 08:48:00 Test Item Value Reference Range Interpretation Comments MCV (test code = MCV) 105.7 80.0-98.0 [facility] CenterWhhiydrQFBHXVMNZV5694-91-76 08:48:00 Test Item Value Reference Range Interpretation Comments MCH (test code = MCH) 34.1 pg 27.0-31.0 [facility] CenterQfsoujfVOADBRKELI4189-24-78 08:48:00 Test Item Value Reference Range Interpretation Comments MCHC (test code = MCHC) 32.2 32.0-36.0 [facility] CenterEcyptgtUSQVNJNENJ9743-40-09 08:48:00 Test Item Value Reference Range Interpretation Comments WBC X 10x3 (test code = WBC X 10x3) 5.5 3.7-10.4 [facility] CenterIbgyalbRGCRAFPYND2346-02-98 08:48:00 Test Item Value Reference Range Interpretation Comments aPTT (test code = aPTT) 34.6 s 22.9-35.8 [facility] [employer] WBSTQYF7681-63-84 08:48:00 Test Item Value Reference Range Interpretation Comments Antibody Scrn (test Positive 1(02/29/16 code = Antibody Scrn) 3:48 AM) [facility] [employer] [facility] RQZMKLL7302-96-94 08:48:00 Test Item Value Reference Range Interpretation Comments ABO/Rh (test code = ABO/Rh) A NEG [facility] ResourcesTdcyvlqDWPJWQBBACIK4072-38-15 08:48:00 Test Item Value Reference Range Interpretation Comments CO2 (test code = CO2) 24 24-32 [facility] HospitalIegoirpEHGBSTEITTNC5627-81-11 08:48:00 Test Item Value Reference Range Interpretation Comments Calcium Lvl (test code = Calcium Lvl) 8.4 8.5-10.5 [facility]bergIfmbtkjSRZVOWTCSSOJ6411-57-14 08:48:00 Test Item Value Reference Range Interpretation Comments eGFR (test code = eGFR) 49 [facility] AtlantaTztcuofEHQWJWTVRGQN7275-46-24 08:48:00 Test Item Value Reference Range Interpretation Comments Sodium Lvl (test code = Sodium Lvl) 140 135-145 [facility] AtlantaSldadidIOWQIRWNVYEB8115-86-82 08:48:00 Test Item Value Reference Range Interpretation Comments Creatinine Lvl (test code = Creatinine 1.09 0.50-1.40 Lvl) [facility] HospitalYvhywqxNJALNJREGURU1680-77-30 08:48:00 Test Item Value Reference Range Interpretation Comments BUN (test code = BUN) 40 7-22 [facility] HospitalGvjdssrBXXBGZWDDWZI5378-69-79 08:48:00 Test Item Value Reference Range Interpretation Comments Chloride Lvl (test code = Chloride Lvl) 106 95-109 [facility] HospitalFwfxuidMGEGQWVKPRET2721-20-21 08:48:00 Test Item Value Reference Range Interpretation Comments Potassium Lvl (test code = Potassium 3.9 3.5-5.1 Lvl) [facility] HospitalLuyzdkiTKKVJSWNKRJN3087-57-85 08:48:00 Test Item Value Reference Range Interpretation Comments Glucose Lvl (test code = Glucose Lvl) 85 70-99 [facility] HospitalIqxemhgDHHGOOLMOJYF9613-58-83 08:48:00 Test Item Value Reference Range Interpretation Comments AGAP (test code = AGAP) 13.9 10.0-20.0 [facility] CenterPkeidwlWYQTZVDWCL3136-88-33 08:48:00 Test Item Value Reference Range Interpretation Comments Eosinophils # (test code 0.1 See_Comment [A utomated message] The = Eosinophils #) system [facility] generated this result tra nsmitted reference range : <=0.5. The reference r patria was not used to int erpret this result as normal/abnormal . [facility] CenterTpplbogLDWGQNMUNJ0233-71-16 08:48:00 Test Item Value Reference Range Interpretation Comments Basophils # (test code 0.0 See_Comment [Aut omated message] The = Basophils #) system which generated this result tra nsmitted reference range : <=0.2. The reference r patria was not used to int erpret this result as normal/abnormal . [facility] CenterQbplfooSBLVYGILES8535-92-01 08:48:00 Test Item Value Reference Range Interpretation Comments Basophils (test code = 0.2 See_Comment [Aut omated message] The Basophils) system which ge nerated this result tra nsmitted reference range : <=1.0. The reference r patria was not used to int erpret this result as normal/abnormal . [facility] CenterPqtwtcbQTLTROWSNM7351-96-79 08:48:00 Test Item Value Reference Range Interpretation Comments Eosinophils (test code = 1.4 See_Comment [A utomated message] The Eosinophils) system which ge nerated this result tra nsmitted reference range : <=4.0. The reference r partia was not used to int erpret this result as normal/abnormal . [facility] CenterWydaszgRABOFUNGBF8680-29-68 08:48:00 Test Item Value Reference Range Interpretation Comments Monocytes (test code = Monocytes) 11.8 2.0-12.0 [facility] CenterIwqxfiwOPGVMCIXUX1352-23-02 08:48:00 Test Item Value Reference Range Interpretation Comments Lymphocytes (test code = Lymphocytes) 17.2 20.0-40.0 [facility] CenterXxllabwRVXKSPXBUH6511-74-10 08:48:00 Test Item Value Reference Range Interpretation Comments Segs (test code = Segs) 69.4 45.0-75.0 [facility] CenterYdvcqkwFEHUCJKGGM0618-54-20 08:48:00 Test Item Value Reference Range Interpretation Comments Lymphocytes # (test code = Lymphocytes 1.0 1.0-5.5 #) [facility] CenterQkkzbfkFWSHOMONAJ5389-70-82 08:48:00 Test Item Value Reference Range Interpretation Comments Segs-Bands # (test code = Segs-Bands #) 3.8 1.5-8.1 [facility] CenterKqzhuvwFMWYGSXMAM7201-38-98 08:48:00 Test Item Value Reference Range Interpretation Comments Monocytes # (test code 0.7 See_Comment [Aut omated message] The = Monocytes #) system which generated this result tra nsmitted reference range : <=0.8. The reference r patria was not used to int erpret this result as normal/abnormal . [facility] CenterRfiyshtYABRWFHTCX5311-26-21 08:48:00 Test Item Value Reference Range Interpretation Comments PROTIME (test code = PROTIME) 15.6 s 12.0-14.7 [facility] CenterWpazleeTLOQXYHWJC5431-29-03 08:48:00 Test Item Value Reference Range Interpretation Comments INR (test code = INR) 1.21 0.85-1.17 [facility] CenterBdktktgXLSKMCXAIF8218-95-10 08:48:00 Test Item Value Reference Range Interpretation Comments MPV (test code = MPV) 9.5 7.4-10.4 [facility] CenterYizrrcuIPIMUQWYZL4857-32-81 08:48:00 Test Item Value Reference Range Interpretation Comments Platelet (test code = Platelet) 133 133-450 [facility] CenterDcyldbiADFZCJNABQ5849-89-68 08:48:00 Test Item Value Reference Range Interpretation Comments RDW (test code = RDW) 12.1 11.5-14.5 [facility] CenterLnxetnmVBAMRKWXLV3911-47-19 08:48:00 Test Item Value Reference Range Interpretation Comments RBC X 10x6 (test code = RBC X 10x6) 3.17 4.20-5.40 [facility]xnqjcxIFXISTDVRW6359-47-11 08:48:00 Test Item Value Reference Range Interpretation Comments Hct (test code = Hct) 33.5 36.0-48.0 [facility] CenterWyqogbvVXKISFKMHZ7462-71-79 08:48:00 Test Item Value Reference Range Interpretation Comments Hgb (test code = Hgb) 10.8 12.0-16.0 [facility] CenterJknbofsKWVRSVSOSO6907-56-01 08:48:00 Test Item Value Reference Range Interpretation Comments MCV (test code = MCV) 105.7 80.0-98.0 [facility] HospitalFcfmdreRPZORMQALF8194-62-57 08:48:00 Test Item Value Reference Range Interpretation Comments MCH (test code = MCH) 34.1 pg 27.0-31.0 [facility] HospitalHuydfbmANCVAQVOWS8049-17-15 08:48:00 Test Item Value Reference Range Interpretation Comments MCHC (test code = MCHC) 32.2 32.0-36.0 [facility] HospitalVjnxzymCHCCNKFAEF6974-83-60 08:48:00 Test Item Value Reference Range Interpretation Comments WBC X 10x3 (test code = WBC X 10x3) 5.5 3.7-10.4 [facility] HospitalXrmanrbGGTNKRNNFH4764-83-79 08:48:00 Test Item Value Reference Range Interpretation Comments aPTT (test code = aPTT) 34.6 s 22.9-35.8 [facility] [employer] ZOPSJED6001-71-21 08:48:00 Test Item Value Reference Range Interpretation Comments Antibody Scrn (test Positive 1(02/29/16 code = Antibody Scrn) 3:48 AM) [facility] [employer] RGMUHRW3950-12-84 08:48:00 Test Item Value Reference Range Interpretation Comments ABO/Rh (test code = ABO/Rh) A NEG [facility]bergGxhuymzCZIPMTLCRSUH4273-04-09 08:48:00 Test Item Value Reference Range Interpretation Comments CO2 (test code = CO2) 24 24-32 [facility] HospitalUjfbyyyYCUXWQSNLDOE6579-97-04 08:48:00 Test Item Value Reference Range Interpretation Comments Calcium Lvl (test code = Calcium Lvl) 8.4 8.5-10.5 [facility] HospitalFfdhauaEOCAHGCGEEYH5942-75-46 08:48:00 Test Item Value Reference Range Interpretation Comments eGFR (test code = eGFR) 49 [facility] HospitalJjygustOVMLHGDJNWQK7206-17-98 08:48:00 Test Item Value Reference Range Interpretation Comments Sodium Lvl (test code = Sodium Lvl) 140 135-145 [facility] HospitalVznqkguHJIROXXRUQGB6152-80-05 08:48:00 Test Item Value Reference Range Interpretation Comments Creatinine Lvl (test code = Creatinine 1.09 0.50-1.40 Lvl) [facility] HospitalEgrgjvjTEYBXDDKPGVM0117-83-94 08:48:00 Test Item Value Reference Range Interpretation Comments BUN (test code = BUN) 40 7-22 [facility] HospitalGybzczjCZSUJSYRVBJQ9845-61-66 08:48:00 Test Item Value Reference Range Interpretation Comments Chloride Lvl (test code = Chloride Lvl) 106 95-109 [facility] HospitalZicpctwOPKSMVYGDXDF4750-80-97 08:48:00 Test Item Value Reference Range Interpretation Comments Potassium Lvl (test code = Potassium 3.9 3.5-5.1 Lvl) [facility] HospitalKymtidvEGMXDDAXSKPH8756-81-89 08:48:00 Test Item Value Reference Range Interpretation Comments Glucose Lvl (test code = Glucose Lvl) 85 70-99 [facility] HospitalWvaegjhYOKABTGTXGYB2915-99-41 08:48:00 Test Item Value Reference Range Interpretation Comments AGAP (test code = AGAP) 13.9 10.0-20.0 [facility] CenterHwmixxyDLELSUDZRE6564-77-00 08:48:00 Test Item Value Reference Range Interpretation Comments Eosinophils # (test code 0.1 See_Comment [A utomated message] The = Eosinophils #) system ic h generated this result tra nsmitted reference range : <=0.5. The reference r patria was not used to int erpret this result as normal/abnormal . [facility] CenterTaiuimoDWYURHKYHU4966-43-58 08:48:00 Test Item Value Reference Range Interpretation Comments Basophils # (test code 0.0 See_Comment [Aut omated message] The = Basophils #) system which generated this result tra nsmitted reference range : <=0.2. The reference r patria was not used to int erpret this result as normal/abnormal . [facility] CenterMnbmnfqFJABAGHUJO9474-91-45 08:48:00 Test Item Value Reference Range Interpretation Comments Basophils (test code = 0.2 See_Comment [Aut omated message] The Basophils) system which ge nerated this result tra nsmitted reference range : <=1.0. The reference r patria was not used to int erpret this result as normal/abnormal . [facility] CenterFoqkrfxGPZMOYABXM4443-50-42 08:48:00 Test Item Value Reference Range Interpretation Comments Eosinophils (test code = 1.4 See_Comment [A utomated message] The Eosinophils) system which ge nerated this result tra nsmitted reference range : <=4.0. The reference r patria was not used to int erpret this result as normal/abnormal . [facility] CenterZwmsdztQUCCXQAHKE5047-82-87 08:48:00 Test Item Value Reference Range Interpretation Comments Monocytes (test code = Monocytes) 11.8 2.0-12.0 [facility] CenterMpqcaapHCYMYCOCRS1617-04-21 08:48:00 Test Item Value Reference Range Interpretation Comments Lymphocytes (test code = Lymphocytes) 17.2 20.0-40.0 [facility] CenterBaewysnXNQSCZITCY1506-83-27 08:48:00 Test Item Value Reference Range Interpretation Comments Segs (test code = Segs) 69.4 45.0-75.0 [facility] CenterUfhydyaXRLJMFMUKU4142-93-28 08:48:00 Test Item Value Reference Range Interpretation Comments Lymphocytes # (test code = Lymphocytes 1.0 1.0-5.5 #) [facility] CenterKzvvxiqNTSJEOZXIU7184-88-25 08:48:00 Test Item Value Reference Range Interpretation Comments Segs-Bands # (test code = Segs-Bands #) 3.8 1.5-8.1 [facility] CenterLokikxfUGZISIDCIK0904-82-38 08:48:00 Test Item Value Reference Range Interpretation Comments Monocytes # (test code 0.7 See_Comment [Aut omated message] The = Monocytes #) system which generated this result tra nsmitted reference range : <=0.8. The reference r patria was not used to int erpret this result as normal/abnormal . [facility] CenterWsjherpBZZFADTPZU8901-46-03 08:48:00 Test Item Value Reference Range Interpretation Comments PROTIME (test code = PROTIME) 15.6 s 12.0-14.7 [facility] CenterBvdqjcfHWSAXFACTS4136-63-94 08:48:00 Test Item Value Reference Range Interpretation Comments INR (test code = INR) 1.21 0.85-1.17 [facility] CenterGbfasvhITGMOQJJHO6100-03-24 08:48:00 Test Item Value Reference Range Interpretation Comments MPV (test code = MPV) 9.5 7.4-10.4 [facility] CenterWvrwucyNHRTWOAGDZ2422-42-68 08:48:00 Test Item Value Reference Range Interpretation Comments Platelet (test code = Platelet) 133 133-450 [facility] CenterAermawuNGECMADWGO5152-24-96 08:48:00 Test Item Value Reference Range Interpretation Comments RDW (test code = RDW) 12.1 11.5-14.5 [facility] CenterFadstfrJRFREPSRMJ5897-42-36 08:48:00 Test Item Value Reference Range Interpretation Comments RBC X 10x6 (test code = RBC X 10x6) 3.17 4.20-5.40 [facility] CenterFlhwvdiNMGWYAXKVV2584-26-16 08:48:00 Test Item Value Reference Range Interpretation Comments Hct (test code = Hct) 33.5 36.0-48.0 [facility] CenterEesyfhyFDDSHVWZGC9943-12-62 08:48:00 Test Item Value Reference Range Interpretation Comments Hgb (test code = Hgb) 10.8 12.0-16.0 [facility] ServicesQdmwxtlHOVSWDYESN4684-95-33 08:48:00 Test Item Value Reference Range Interpretation Comments MCV (test code = MCV) 105.7 80.0-98.0 [facility] CenterWttvuhlMQHJNVHQWP8977-85-33 08:48:00 Test Item Value Reference Range Interpretation Comments MCH (test code = MCH) 34.1 pg 27.0-31.0 [facility] CenterZeesvvfFMRNOWWAKH4228-15-12 08:48:00 Test Item Value Reference Range Interpretation Comments MCHC (test code = MCHC) 32.2 32.0-36.0 [facility]ZpidtbmVWODNTYYSG8809-44-55 08:48:00 Test Item Value Reference Range Interpretation Comments WBC X 10x3 (test code = WBC X 10x3) 5.5 3.7-10.4 [facility] CenterTuvisfvBMFFZRMEYG9716-47-27 08:48:00 Test Item Value Reference Range Interpretation Comments aPTT (test code = aPTT) 34.6 s 22.9-35.8 [facility] TEAKXDC4131[facility]54-47 08:48:00 Test Item Value Reference Range Interpretation Comments Antibody Scrn (test Positive 1(02/29/16 code = Antibody Scrn) 3:48 AM) [facility] BANK NHUWQVG8964-42-54 08:48:00 Test Item Value Reference Range Interpretation Comments ABO/Rh (test code = ABO/Rh) A NEG [facility] HospitalMeusllxURTLSZOBZMEE1116-51-49 08:48:00 Test Item Value Reference Range Interpretation Comments CO2 (test code = CO2) 24 24-32 [facility] HospitalOjhyxlnJAPMCIMCHPAA9164-90-52 08:48:00 Test Item Value Reference Range Interpretation Comments Calcium Lvl (test code = Calcium Lvl) 8.4 8.5-10.5 [facility] HospitalPcdvxfkXFMEHYWWIGZU6316-83-98 08:48:00 Test Item Value Reference Range Interpretation Comments eGFR (test code = eGFR) 49 [facility] HospitalXqlspwrEHKCJJDOLPUC1755-00-22 08:48:00 Test Item Value Reference Range Interpretation Comments Sodium Lvl (test code = Sodium Lvl) 140 135-145 [facility] HospitalMiadleyCRLOBFOTQQLE2927-02-79 08:48:00 Test Item Value Reference Range Interpretation Comments Creatinine Lvl (test code = Creatinine 1.09 0.50-1.40 Lvl) [facility] HospitalMtzmvhpCHGJXTCKYZCW6412-78-62 08:48:00 Test Item Value Reference Range Interpretation Comments BUN (test code = BUN) 40 7-22 [facility] HospitalTmrbtyjWNGBZWXVMQCI4597-41-84 08:48:00 Test Item Value Reference Range Interpretation Comments Chloride Lvl (test code = Chloride Lvl) 106 95-109 [facility] HospitalWenumfiNLDZAYBRSCVK5672-30-65 08:48:00 Test Item Value Reference Range Interpretation Comments Potassium Lvl (test code = Potassium 3.9 3.5-5.1 Lvl) [facility] HospitalPnxggjuYQMGIRAEMGRU1920-05-63 08:48:00 Test Item Value Reference Range Interpretation Comments Glucose Lvl (test code = Glucose Lvl) 85 70-99 [facility] HospitalCaghcuuNKTLCVQDGEUL2249-41-93 08:48:00 Test Item Value Reference Range Interpretation Comments AGAP (test code = AGAP) 13.9 10.0-20.0 [facility]JbctbieKLODYDIGMR5932-20-42 08:48:00 Test Item Value Reference Range Interpretation Comments Eosinophils # (test code 0.1 See_Comment [A utomated message] The = Eosinophils #) system whic h generated this result tra nsmitted reference range : <=0.5. The reference r patria was not used to int erpret this result as normal/abnormal . [facility] CenterMrxnufkAEXJMGQDWJ8325-33-57 08:48:00 Test Item Value Reference Range Interpretation Comments Basophils # (test code 0.0 See_Comment [Aut omated message] The = Basophils #) system which generated this result tra nsmitted reference range : <=0.2. The reference r patria was not used to int erpret this result as normal/abnormal . [facility] CenterCsqcihcDWMSMMVVRM3014-01-97 08:48:00 Test Item Value Reference Range Interpretation Comments Basophils (test code = 0.2 See_Comment [Aut omated message] The Basophils) system which ge nerated this result tra nsmitted reference range : <=1.0. The reference r patria was not used to int erpret this result as normal/abnormal . [facility] CenterBltgbzpNHGTDTDALF1704-22-55 08:48:00 Test Item Value Reference Range Interpretation Comments Eosinophils (test code = 1.4 See_Comment [A utomated message] The Eosinophils) system which ge nerated this result tra nsmitted reference range : <=4.0. The reference r patria was not used to int erpret this result as normal/abnormal . [facility] CenterLzbxhjqFKHRYCHXAG0687-43-68 08:48:00 Test Item Value Reference Range Interpretation Comments Monocytes (test code = Monocytes) 11.8 2.0-12.0 [facility] CenterGwukhfkJZODHFKHXL1046-81-15 08:48:00 Test Item Value Reference Range Interpretation Comments Lymphocytes (test code = Lymphocytes) 17.2 20.0-40.0 [facility] CenterHsiemtcZGYZUCVJZP0644-87-71 08:48:00 Test Item Value Reference Range Interpretation Comments Segs (test code = Segs) 69.4 45.0-75.0 [facility] CenterAtifeekUKLHYHNZCA0618-08-92 08:48:00 Test Item Value Reference Range Interpretation Comments Lymphocytes # (test code = Lymphocytes 1.0 1.0-5.5 #) [facility] CenterDqgwmdnCWRPOROVJZ0683-75-26 08:48:00 Test Item Value Reference Range Interpretation Comments Segs-Bands # (test code = Segs-Bands #) 3.8 1.5-8.1 [facility] CenterNezlsrgBIOFRYQNSL4158-29-43 08:48:00 Test Item Value Reference Range Interpretation Comments Monocytes # (test code 0.7 See_Comment [Aut omated message] The = Monocytes #) system which generated this result tra nsmitted reference range : <=0.8. The reference r patria was not used to int erpret this result as normal/abnormal . [facility] CenterFfwugfwJFVHKRVAEF8166-51-07 08:48:00 Test Item Value Reference Range Interpretation Comments PROTIME (test code = PROTIME) 15.6 s 12.0-14.7 [facility] CenterEgqzdyjSKYAGHJXWL0187-53-08 08:48:00 Test Item Value Reference Range Interpretation Comments INR (test code = INR) 1.21 0.85-1.17 [facility] CenterCyujiyiMZGSFEPOQQ7099-63-00 08:48:00 Test Item Value Reference Range Interpretation Comments MPV (test code = MPV) 9.5 7.4-10.4 [facility] CenterGnnijduWAUZMAQDFG0876-05-97 08:48:00 Test Item Value Reference Range Interpretation Comments Platelet (test code = Platelet) 133 133-450 [facility] CenterHkwlyxnVRMBIQZWUP3641-67-53 08:48:00 Test Item Value Reference Range Interpretation Comments RDW (test code = RDW) 12.1 11.5-14.5 [facility]JyvhjeyNANURIZEYD0907-31-77 08:48:00 Test Item Value Reference Range Interpretation Comments RBC X 10x6 (test code = RBC X 10x6) 3.17 4.20-5.40 [facility] CenterYqnxoizZHTQCPSKOH1481-15-80 08:48:00 Test Item Value Reference Range Interpretation Comments Hct (test code = Hct) 33.5 36.0-48.0 [facility]XtnqfcjAZRFHLYXSP4582-99-53 08:48:00 Test Item Value Reference Range Interpretation Comments Hgb (test code = Hgb) 10.8 12.0-16.0 [facility] CenterItqffrvXJEODXZTJA0934-31-80 08:48:00 Test Item Value Reference Range Interpretation Comments MCV (test code = MCV) 105.7 80.0-98.0 [facility] CenterTmwyrtaYZHJVSURKO2416-11-42 08:48:00 Test Item Value Reference Range Interpretation Comments MCH (test code = MCH) 34.1 pg 27.0-31.0 [facility] CenterCtoahyfERTDKFKXDQ2816-11-43 08:48:00 Test Item Value Reference Range Interpretation Comments MCHC (test code = MCHC) 32.2 32.0-36.0 [facility] CenterFlywaamFJJTFEXKXO5471-86-73 08:48:00 Test Item Value Reference Range Interpretation Comments WBC X 10x3 (test code = WBC X 10x3) 5.5 3.7-10.4 [facility] CenterVnubynvLBWJPKMAQY2735-16-49 08:48:00 Test Item Value Reference Range Interpretation Comments aPTT (test code = aPTT) 34.6 s 22.9-35.8 [facility] QIUGATI0089-05-23 08:48:00 Test Item Value Reference Range Interpretation Comments Antibody Scrn (test Positive 1(02/29/16 code = Antibody Scrn) 3:48 AM) [facility] ATBBWZT3588-95-99 08:48:00 Test Item Value Reference Range Interpretation Comments ABO/Rh (test code = ABO/Rh) A NEG [facility] HospitalHtpxfpfVDYRCMNFISFJ9605-71-59 08:48:00 Test Item Value Reference Range Interpretation Comments CO2 (test code = CO2) 24 24-32 [facility] HospitalSlhcudmYGVSZTHKTPQR3380-32-40 08:48:00 Test Item Value Reference Range Interpretation Comments Calcium Lvl (test code = Calcium Lvl) 8.4 8.5-10.5 [facility] HospitalIgleigeOLTVJOEROZGP0943-46-45 08:48:00 Test Item Value Reference Range Interpretation Comments eGFR (test code = eGFR) 49 [facility] HospitalJdcjfgmIXAACEDQQQVG5869-55-48 08:48:00 Test Item Value Reference Range Interpretation Comments Sodium Lvl (test code = Sodium Lvl) 140 135-145 [facility] HospitalTririaqNEFDVHVCGOFU7009-31-40 08:48:00 Test Item Value Reference Range Interpretation Comments Creatinine Lvl (test code = Creatinine 1.09 0.50-1.40 Lvl) [facility] HospitalWpvmlhwQWAIDEYGSGMW5385-16-29 08:48:00 Test Item Value Reference Range Interpretation Comments BUN (test code = BUN) 40 7-22 [facility] HospitalQcqwumnXZUNSUERJAEH0999-66-86 08:48:00 Test Item Value Reference Range Interpretation Comments Chloride Lvl (test code = Chloride Lvl) 106 95-109 [facility] HospitalBjxlphyIDHFQQEHMWDV6772-37-21 08:48:00 Test Item Value Reference Range Interpretation Comments Potassium Lvl (test code = Potassium 3.9 3.5-5.1 Lvl) [facility] HospitalUybaxrwURSJQXMZBVJT1243-03-40 08:48:00 Test Item Value Reference Range Interpretation Comments Glucose Lvl (test code = Glucose Lvl) 85 70-99 [facility] HospitalQrycofkLRXUWDHCSMGE9355-74-17 08:48:00 Test Item Value Reference Range Interpretation Comments AGAP (test code = AGAP) 13.9 10.0-20.0 [facility] CenterJoazopaEUXJBWMSJY6318-91-94 08:48:00 Test Item Value Reference Range Interpretation Comments Eosinophils # (test code 0.1 See_Comment [A utomated message] The = Eosinophils #) system whic h generated this result tra nsmitted reference range : <=0.5. The reference r patria was not used to int erpret this result as normal/abnormal . [facility] CenterMnlaroqQFJOOAUIGU8512-50-78 08:48:00 Test Item Value Reference Range Interpretation Comments Basophils # (test code 0.0 See_Comment [Aut omated message] The = Basophils #) system which generated this result tra nsmitted reference range : <=0.2. The reference r patria was not used to int erpret this result as normal/abnormal . [facility] CenterBdnsxvrLWVRUCMHSX1117-97-39 08:48:00 Test Item Value Reference Range Interpretation Comments Basophils (test code = 0.2 See_Comment [Aut omated message] The Basophils) system which ge nerated this result tra nsmitted reference range : <=1.0. The reference r patria was not used to int erpret this result as normal/abnormal . [facility] CenterEnvuesoTJBFUUJYGV7231-40-78 08:48:00 Test Item Value Reference Range Interpretation Comments Eosinophils (test code = 1.4 See_Comment [A utomated message] The Eosinophils) system which ge nerated this result tra nsmitted reference range : <=4.0. The reference r patria was not used to int erpret this result as normal/abnormal . [facility] CenterPrxunsfFILCYKIYNX6155-25-69 08:48:00 Test Item Value Reference Range Interpretation Comments Monocytes (test code = Monocytes) 11.8 2.0-12.0 [facility] CenterDfscawjLXOBFNNEBB5048-52-65 08:48:00 Test Item Value Reference Range Interpretation Comments Lymphocytes (test code = Lymphocytes) 17.2 20.0-40.0 [facility] CenterNvsjkycOHRHLNUHQP1491-01-25 08:48:00 Test Item Value Reference Range Interpretation Comments Segs (test code = Segs) 69.4 45.0-75.0 [facility] CenterVpcbiwdUVBCCBIJSC8101-64-31 08:48:00 Test Item Value Reference Range Interpretation Comments Lymphocytes # (test code = Lymphocytes 1.0 1.0-5.5 #) [facility] CenterKjgpicyFOBAOGFBWY5574-62-24 08:48:00 Test Item Value Reference Range Interpretation Comments Segs-Bands # (test code = Segs-Bands #) 3.8 1.5-8.1 [facility] CenterBsumsxjMHYUFATCFL7557-33-43 08:48:00 Test Item Value Reference Range Interpretation Comments Monocytes # (test code 0.7 See_Comment [Aut omated message] The = Monocytes #) system which generated this result tra nsmitted reference range : <=0.8. The reference r patria was not used to int erpret this result as normal/abnormal . [facility] CenterGdiynjhRBILBATUAI1394-23-79 08:48:00 Test Item Value Reference Range Interpretation Comments PROTIME (test code = PROTIME) 15.6 s 12.0-14.7 [facility] CenterEzfhrpgNAAOPSNGAG9929-01-73 08:48:00 Test Item Value Reference Range Interpretation Comments INR (test code = INR) 1.21 0.85-1.17 [facility] CenterGkyzuvnPAFDLQBRDP7258-71-61 08:48:00 Test Item Value Reference Range Interpretation Comments MPV (test code = MPV) 9.5 7.4-10.4 [facility] CenterMkmjplxWCDJAAAISA7114-31-81 08:48:00 Test Item Value Reference Range Interpretation Comments Platelet (test code = Platelet) 133 133-450 [facility] CenterUrcnhqaCICHYOVJZY5364-68-29 08:48:00 Test Item Value Reference Range Interpretation Comments RDW (test code = RDW) 12.1 11.5-14.5 [facility] CenterVicqvhcMEUKOBADEK9800-43-88 08:48:00 Test Item Value Reference Range Interpretation Comments RBC X 10x6 (test code = RBC X 10x6) 3.17 4.20-5.40 [facility] CenterKgwwrnuOFXZNZUHPE7179-67-38 08:48:00 Test Item Value Reference Range Interpretation Comments Hct (test code = Hct) 33.5 36.0-48.0 [facility] CenterHhgwvipGVUMDVYIMX5676-03-42 08:48:00 Test Item Value Reference Range Interpretation Comments Hgb (test code = Hgb) 10.8 12.0-16.0 [facility] CenterJxkzprcKDYSRQHDCE6270-88-91 08:48:00 Test Item Value Reference Range Interpretation Comments MCV (test code = MCV) 105.7 80.0-98.0 [facility] CenterXvskvwnXGFVDBYNEO0833-87-62 08:48:00 Test Item Value Reference Range Interpretation Comments MCH (test code = MCH) 34.1 pg 27.0-31.0 [facility] CenterUkuxavmYHDHPJIACF5323-99-36 08:48:00 Test Item Value Reference Range Interpretation Comments MCHC (test code = MCHC) 32.2 32.0-36.0 [facility] CenterCntusbbDBWACAVUJX7544-63-31 08:48:00 Test Item Value Reference Range Interpretation Comments WBC X 10x3 (test code = WBC X 10x3) 5.5 3.7-10.4 [facility] CenterKtmdcrnYKPDRWLCWO4955-03-95 08:48:00 Test Item Value Reference Range Interpretation Comments aPTT (test code = aPTT) 34.6 s 22.9-35.8 [facility] WMCRIWV4396-38-77 08:48:00 Test Item Value Reference Range Interpretation Comments Antibody Scrn (test Positive 1(02/29/16 code = Antibody Scrn) 3:48 AM) [facility] KPFVFCQ0394-97-79 08:48:00 Test Item Value Reference Range Interpretation Comments ABO/Rh (test code = ABO/Rh) A NEG [facility] HospitalEjrzahuMUTQQKTFSFHL5978-74-86 08:48:00 Test Item Value Reference Range Interpretation Comments CO2 (test code = CO2) 24 24-32 [facility] HospitalGfcygjuUFHDAXCGAYKO9113-85-40 08:48:00 Test Item Value Reference Range Interpretation Comments Calcium Lvl (test code = Calcium Lvl) 8.4 8.5-10.5 [facility] HospitalPqjxpvvHEGARIAMKGMW8446-27-83 08:48:00 Test Item Value Reference Range Interpretation Comments eGFR (test code = eGFR) 49 [facility] HospitalXpuwqilHBOUHJMJRMHE9976-77-90 08:48:00 Test Item Value Reference Range Interpretation Comments Sodium Lvl (test code = Sodium Lvl) 140 135-145 [facility] HospitalRuskmbeKKFKIVFUPLJS9668-27-06 08:48:00 Test Item Value Reference Range Interpretation Comments Creatinine Lvl (test code = Creatinine 1.09 0.50-1.40 Lvl) [facility] HospitalDtajzrcDPCMGTYHAYBZ3468-11-91 08:48:00 Test Item Value Reference Range Interpretation Comments BUN (test code = BUN) 40 7-22 [facility] HospitalLopfwfxGGLSHYQSLWZN6361-31-02 08:48:00 Test Item Value Reference Range Interpretation Comments Chloride Lvl (test code = Chloride Lvl) 106 95-109 [facility] HospitalCzviimsRAEKSAROORGE6366-99-66 08:48:00 Test Item Value Reference Range Interpretation Comments Potassium Lvl (test code = Potassium 3.9 3.5-5.1 Lvl) [facility] HospitalTydbuprJTDEBRCELNOB3854-56-83 08:48:00 Test Item Value Reference Range Interpretation Comments Glucose Lvl (test code = Glucose Lvl) 85 70-99 [facility] HospitalLflauhrZPKIRULCEGUJ6441-52-81 08:48:00 Test Item Value Reference Range Interpretation Comments AGAP (test code = AGAP) 13.9 10.0-20.0 [facility] CenterCynozwjWZRBOWGIRU4181-22-03 08:48:00 Test Item Value Reference Range Interpretation Comments Eosinophils # (test code 0.1 See_Comment [A utomated message] The = Eosinophils #) system whic h generated this result tra nsmitted reference range : <=0.5. The reference r patria was not used to int erpret this result as normal/abnormal . [facility] CenterUsfwvdgHIMXCRIIRS0090-44-42 08:48:00 Test Item Value Reference Range Interpretation Comments Basophils # (test code 0.0 See_Comment [Aut omated message] The = Basophils #) system which generated this result tra nsmitted reference range : <=0.2. The reference r patria was not used to int erpret this result as normal/abnormal . [facility] CenterMwvrhykHDOSCIBUBY0809-00-41 08:48:00 Test Item Value Reference Range Interpretation Comments Basophils (test code = 0.2 See_Comment [Aut omated message] The Basophils) system which ge nerated this result tra nsmitted reference range : <=1.0. The reference r patria was not used to int erpret this result as normal/abnormal . [facility] CenterYkbucepVVYHUITGUP9175-23-13 08:48:00 Test Item Value Reference Range Interpretation Comments Eosinophils (test code = 1.4 See_Comment [A utomated message] The Eosinophils) system which ge nerated this result tra nsmitted reference range : <=4.0. The reference r patria was not used to int erpret this result as normal/abnormal . [facility] CenterQaxsmnuSSIFZMMTYU6173-24-87 08:48:00 Test Item Value Reference Range Interpretation Comments Monocytes (test code = Monocytes) 11.8 2.0-12.0 [facility] CenterBejesniECTJLFHXMM0892-92-34 08:48:00 Test Item Value Reference Range Interpretation Comments Lymphocytes (test code = Lymphocytes) 17.2 20.0-40.0 [facility] CenterNisrnggORFDHTDHTV1403-29-85 08:48:00 Test Item Value Reference Range Interpretation Comments Segs (test code = Segs) 69.4 45.0-75.0 [facility] CenterBzqdjywFPVNZNLPST6735-99-47 08:48:00 Test Item Value Reference Range Interpretation Comments Lymphocytes # (test code = Lymphocytes 1.0 1.0-5.5 #) [facility] CenterOmsqgpdIXBMSRMXRG4109-51-26 08:48:00 Test Item Value Reference Range Interpretation Comments Segs-Bands # (test code = Segs-Bands #) 3.8 1.5-8.1 [facility] CenterRgxeouuNWOOCHYUZQ2311-33-38 08:48:00 Test Item Value Reference Range Interpretation Comments Monocytes # (test code 0.7 See_Comment [Aut omated message] The = Monocytes #) system which generated this result tra nsmitted reference range : <=0.8. The reference r patria was not used to int erpret this result as normal/abnormal . [facility] CenterXcdntvnMZVPFXPZKE7372-96-33 08:48:00 Test Item Value Reference Range Interpretation Comments PROTIME (test code = PROTIME) 15.6 s 12.0-14.7 [facility] CenterMuxamuqUJMRUXPQSK7254-15-41 08:48:00 Test Item Value Reference Range Interpretation Comments INR (test code = INR) 1.21 0.85-1.17 [facility] CenterHwpyfuzVIKPEQIKZI3258-67-49 08:48:00 Test Item Value Reference Range Interpretation Comments MPV (test code = MPV) 9.5 7.4-10.4 [facility] CenterArkwvliAZEPNVMDRD7855-48-37 08:48:00 Test Item Value Reference Range Interpretation Comments Platelet (test code = Platelet) 133 133-450 [facility]ZiihtzsNFVTNHEZRI5276-17-21 08:48:00 Test Item Value Reference Range Interpretation Comments RDW (test code = RDW) 12.1 11.5-14.5 [facility] ServicesQuqcedhAGPNRFDXYJ0013-19-26 08:48:00 Test Item Value Reference Range Interpretation Comments RBC X 10x6 (test code = RBC X 10x6) 3.17 4.20-5.40 [facility] ServicesBqbivueSSPOZSHEFN9502-23-28 08:48:00 Test Item Value Reference Range Interpretation Comments Hct (test code = Hct) 33.5 36.0-48.0 [facility] ResourcesAakwsptFRLMTVYVOV6416-87-00 08:48:00 Test Item Value Reference Range Interpretation Comments Hgb (test code = Hgb) 10.8 12.0-16.0 [facility] ServicesEqpxyemVPAIVQGSCW7809-53-43 08:48:00 Test Item Value Reference Range Interpretation Comments MCV (test code = MCV) 105.7 80.0-98.0 [facility] ServicesOuategrSZDKNPGEFZ9560-25-24 08:48:00 Test Item Value Reference Range Interpretation Comments MCH (test code = MCH) 34.1 pg 27.0-31.0 [facility] ResourcesClxhvuiCYOWQJMEJW2108-46-49 08:48:00 Test Item Value Reference Range Interpretation Comments MCHC (test code = MCHC) 32.2 32.0-36.0 [facility] ServicesJijlosbXMXSQGMCLK8525-32-20 08:48:00 Test Item Value Reference Range Interpretation Comments WBC X 10x3 (test code = WBC X 10x3) 5.5 3.7-10.4 [facility] ServicesSjkzobqADSEAOJNDY3529-31-40 08:48:00 Test Item Value Reference Range Interpretation Comments aPTT (test code = aPTT) 34.6 s 22.9-35.8 [facility] B[facility] QMJMZRH8535-80-92 08:48:00 Test Item Value Reference Range Interpretation Comments Antibody Scrn (test Positive 1(02/29/16 code = Antibody Scrn) 3:48 AM) [facility] [facility] UQXFUEE4086-14-44 08:48:00 Test Item Value Reference Range Interpretation Comments ABO/Rh (test code = ABO/Rh) A NEG [facility] ResourcesVkytxuwGIQVTSMQUUNF8295-43-25 08:48:00 Test Item Value Reference Range Interpretation Comments CO2 (test code = CO2) 24 24-32 [facility] HospitalEzatzeoUWZJZQSISYPN5778-39-02 08:48:00 Test Item Value Reference Range Interpretation Comments Calcium Lvl (test code = Calcium Lvl) 8.4 8.5-10.5 [facility] HospitalMlchnnoARTXVQNJKXTG9925-50-95 08:48:00 Test Item Value Reference Range Interpretation Comments eGFR (test code = eGFR) 49 [facility] HospitalJpxvzblOWHYWHFXMEFL7853-33-93 08:48:00 Test Item Value Reference Range Interpretation Comments Sodium Lvl (test code = Sodium Lvl) 140 135-145 [facility] HospitalRxumnxlJKRLBNKUZXCR5850-37-12 08:48:00 Test Item Value Reference Range Interpretation Comments Creatinine Lvl (test code = Creatinine 1.09 0.50-1.40 Lvl) [facility] HospitalZulrvmaXZUHJRFXFXIE7232-76-18 08:48:00 Test Item Value Reference Range Interpretation Comments BUN (test code = BUN) 40 7-22 [facility] HospitalTxmzrvfVSVOJRDBAIMR9746-98-90 08:48:00 Test Item Value Reference Range Interpretation Comments Chloride Lvl (test code = Chloride Lvl) 106 95-109 [facility] HospitalQmnqreuGSOKUCWPICKO4594-59-89 08:48:00 Test Item Value Reference Range Interpretation Comments Potassium Lvl (test code = Potassium 3.9 3.5-5.1 Lvl) [facility] HospitalHjfsihuAMCIBTFZCFNX9516-29-71 08:48:00 Test Item Value Reference Range Interpretation Comments Glucose Lvl (test code = Glucose Lvl) 85 70-99 [facility] HospitalOhzjfefROCYWZYBFVTP9592-39-06 08:48:00 Test Item Value Reference Range Interpretation Comments AGAP (test code = AGAP) 13.9 10.0-20.0 [facility] CenterZpvkjggGPKUGVARQA0222-20-49 08:48:00 Test Item Value Reference Range Interpretation Comments Eosinophils # (test code 0.1 See_Comment [A utomated message] The = Eosinophils #) system whic h generated this result tra nsmitted reference range : <=0.5. The reference r patria was not used to int erpret this result as normal/abnormal . [facility] CenterOlgcrvpUJSUUDMFIL7657-98-25 08:48:00 Test Item Value Reference Range Interpretation Comments Basophils # (test code 0.0 See_Comment [Aut omated message] The = Basophils #) system which generated this result tra nsmitted reference range : <=0.2. The reference r patria was not used to int erpret this result as normal/abnormal . [facility] CenterBohrlykLASNBMVATV5367-27-02 08:48:00 Test Item Value Reference Range Interpretation Comments Basophils (test code = 0.2 See_Comment [Aut omated message] The Basophils) system which ge nerated this result tra nsmitted reference range : <=1.0. The reference r patria was not used to int erpret this result as normal/abnormal . [facility] CenterZlokmmlAQMAKTJCXN2828-18-04 08:48:00 Test Item Value Reference Range Interpretation Comments Eosinophils (test code = 1.4 See_Comment [A utomated message] The Eosinophils) system which ge nerated this result tra nsmitted reference range : <=4.0. The reference r patria was not used to int erpret this result as normal/abnormal . [facility] CenterDirbforMIITLPRLZK9116-98-66 08:48:00 Test Item Value Reference Range Interpretation Comments Monocytes (test code = Monocytes) 11.8 2.0-12.0 [facility]QhksnejANZJENTXMG4787-58-61 08:48:00 Test Item Value Reference Range Interpretation Comments Lymphocytes (test code = Lymphocytes) 17.2 20.0-40.0 [facility] CenterIrygtyqPBGNLEBGPP6728-35-65 08:48:00 Test Item Value Reference Range Interpretation Comments Segs (test code = Segs) 69.4 45.0-75.0 [facility] CenterYzijlpoDLVZDCBARM9073-54-78 08:48:00 Test Item Value Reference Range Interpretation Comments Lymphocytes # (test code = Lymphocytes 1.0 1.0-5.5 #) [facility] CenterBometsnQPTYIIKBAK6407-13-77 08:48:00 Test Item Value Reference Range Interpretation Comments Segs-Bands # (test code = Segs-Bands #) 3.8 1.5-8.1 [facility] CenterDebgcljTVXNWMTKSO9412-10-35 08:48:00 Test Item Value Reference Range Interpretation Comments Monocytes # (test code 0.7 See_Comment [Aut omated message] The = Monocytes #) system which generated this result tra nsmitted reference range : <=0.8. The reference r patria was not used to int erpret this result as normal/abnormal . [facility] CenterZngymisWGAFTABFQH7606-49-76 08:48:00 Test Item Value Reference Range Interpretation Comments PROTIME (test code = PROTIME) 15.6 s 12.0-14.7 [facility] CenterWjpzdbiDEQUDIQUDN6715-42-74 08:48:00 Test Item Value Reference Range Interpretation Comments INR (test code = INR) 1.21 0.85-1.17 [facility] CenterFfhygmcSIPYOJNEWZ7661-11-14 08:48:00 Test Item Value Reference Range Interpretation Comments MPV (test code = MPV) 9.5 7.4-10.4 [facility] CenterCzbgovgAZCCKDRRKL5314-28-59 08:48:00 Test Item Value Reference Range Interpretation Comments Platelet (test code = Platelet) 133 133-450 [facility] CenterFnbmdgcICHCISKDWD6442-08-60 08:48:00 Test Item Value Reference Range Interpretation Comments RDW (test code = RDW) 12.1 11.5-14.5 [facility] CenterNppszlrGAPOKOFKTE8703-10-74 08:48:00 Test Item Value Reference Range Interpretation Comments RBC X 10x6 (test code = RBC X 10x6) 3.17 4.20-5.40 [facility] CenterViphxwnKONYGTSTUZ9075-13-81 08:48:00 Test Item Value Reference Range Interpretation Comments Hct (test code = Hct) 33.5 36.0-48.0 [facility] CenterIrpafrjLYNIMLCONY9661-13-14 08:48:00 Test Item Value Reference Range Interpretation Comments Hgb (test code = Hgb) 10.8 12.0-16.0 [facility] CenterLnokwznKBNXHHMBPZ0483-05-67 08:48:00 Test Item Value Reference Range Interpretation Comments MCV (test code = MCV) 105.7 80.0-98.0 [facility] CenterGfizhkpORJDALYRAA3867-10-99 08:48:00 Test Item Value Reference Range Interpretation Comments MCH (test code = MCH) 34.1 pg 27.0-31.0 [facility] CenterNxjkvfwTBOSOKJFKM5653-16-50 08:48:00 Test Item Value Reference Range Interpretation Comments MCHC (test code = MCHC) 32.2 32.0-36.0 [facility] CenterYpuipibJACZAMOPSZ3732-48-59 08:48:00 Test Item Value Reference Range Interpretation Comments WBC X 10x3 (test code = WBC X 10x3) 5.5 3.7-10.4 [facility]AtkiynpLTMIZLCXYR6292-32-15 08:48:00 Test Item Value Reference Range Interpretation Comments aPTT (test code = aPTT) 34.6 s 22.9-35.8 [facility] IEBSLPB6066-63-58 08:48:00 Test Item Value Reference Range Interpretation Comments Antibody Scrn (test Positive 1(02/29/16 code = Antibody Scrn) 3:48 AM) [facility] BBENRER1787-86-47 08:48:00 Test Item Value Reference Range Interpretation Comments ABO/Rh (test code = ABO/Rh) A NEG [facility]AlbnrtfLFQVPNEIRQEQ0918-42-69 08:48:00 Test Item Value Reference Range Interpretation Comments CO2 (test code = CO2) 24 24-32 [facility] HospitalOytjqppLOCOWDUOXHXZ7430-81-52 08:48:00 Test Item Value Reference Range Interpretation Comments Calcium Lvl (test code = Calcium Lvl) 8.4 8.5-10.5 [facility] HospitalMmwgepeJHMSUWOCIPNN5974-87-65 08:48:00 Test Item Value Reference Range Interpretation Comments eGFR (test code = eGFR) 49 [facility] HospitalBrrebgqOBSBSYWPSFXM4289-52-29 08:48:00 Test Item Value Reference Range Interpretation Comments Sodium Lvl (test code = Sodium Lvl) 140 135-145 [facility] HospitalBcpnsdiWKFJDZMROPKN8666-76-75 08:48:00 Test Item Value Reference Range Interpretation Comments Creatinine Lvl (test code = Creatinine 1.09 0.50-1.40 Lvl) [facility] HospitalAkeswbfNTUQECCXYWJI0112-27-28 08:48:00 Test Item Value Reference Range Interpretation Comments BUN (test code = BUN) 40 7-22 [facility] HospitalComqxpbWIKDOEEISCDN2116-54-55 08:48:00 Test Item Value Reference Range Interpretation Comments Chloride Lvl (test code = Chloride Lvl) 106 95-109 [facility] HospitalIyympujANUIGNZBLXCT2346-20-78 08:48:00 Test Item Value Reference Range Interpretation Comments Potassium Lvl (test code = Potassium 3.9 3.5-5.1 Lvl) [facility] HospitalHrqvlydGKFQFHWCMEAJ3390-94-20 08:48:00 Test Item Value Reference Range Interpretation Comments Glucose Lvl (test code = Glucose Lvl) 85 70-99 [facility] HospitalCicjhqzQXRPMIBCQDHP2483-24-97 08:48:00 Test Item Value Reference Range Interpretation Comments AGAP (test code = AGAP) 13.9 10.0-20.0 [facility] CenterCkiwwcdAHUBLRRVYW7875-66-59 08:48:00 Test Item Value Reference Range Interpretation Comments Eosinophils # (test code 0.1 See_Comment [A utomated message] The = Eosinophils #) system whic h generated this result tra nsmitted reference range : <=0.5. The reference r patria was not used to int erpret this result as normal/abnormal . [facility] CenterQjtflmhEITBWWCDNR0095-18-61 08:48:00 Test Item Value Reference Range Interpretation Comments Basophils # (test code 0.0 See_Comment [Aut omated message] The = Basophils #) system which generated this result tra nsmitted reference range : <=0.2. The reference r patria was not used to int erpret this result as normal/abnormal . [facility] CenterVslnbiwFIGGUDTSNR7660-41-99 08:48:00 Test Item Value Reference Range Interpretation Comments Basophils (test code = 0.2 See_Comment [Aut omated message] The Basophils) system which ge nerated this result tra nsmitted reference range : <=1.0. The reference r patria was not used to int erpret this result as normal/abnormal . [facility] CenterReszbmdSDVMWMXTYT8732-43-27 08:48:00 Test Item Value Reference Range Interpretation Comments Eosinophils (test code = 1.4 See_Comment [A utomated message] The Eosinophils) system which ge nerated this result tra nsmitted reference range : <=4.0. The reference r patria was not used to int erpret this result as normal/abnormal . [facility] CenterGuxxbnkMKMHFTYYLK4500-01-91 08:48:00 Test Item Value Reference Range Interpretation Comments Monocytes (test code = Monocytes) 11.8 2.0-12.0 [facility] CenterIasvxxfLNCXNVAUGB5527-04-27 08:48:00 Test Item Value Reference Range Interpretation Comments Lymphocytes (test code = Lymphocytes) 17.2 20.0-40.0 [facility] CenterYheuelcGUMBVUXEFT9727-50-25 08:48:00 Test Item Value Reference Range Interpretation Comments Segs (test code = Segs) 69.4 45.0-75.0 [facility] CenterXopiqsyARRFYGXYPW4045-55-73 08:48:00 Test Item Value Reference Range Interpretation Comments Lymphocytes # (test code = Lymphocytes 1.0 1.0-5.5 #) [facility] CenterLdlykgmBFLIYJTRXC3935-94-15 08:48:00 Test Item Value Reference Range Interpretation Comments Segs-Bands # (test code = Segs-Bands #) 3.8 1.5-8.1 [facility] CenterXxqtkohAMNJMZRHZH7872-24-38 08:48:00 Test Item Value Reference Range Interpretation Comments Monocytes # (test code 0.7 See_Comment [Aut omated message] The = Monocytes #) system which generated this result tra nsmitted reference range : <=0.8. The reference r patria was not used to int erpret this result as normal/abnormal . [facility] CenterIikmdcvSHYMLLURKP4316-42-50 08:48:00 Test Item Value Reference Range Interpretation Comments PROTIME (test code = PROTIME) 15.6 s 12.0-14.7 [facility] CenterAeahusuODPCXVCCGD9961-43-90 08:48:00 Test Item Value Reference Range Interpretation Comments INR (test code = INR) 1.21 0.85-1.17 [facility] CenterJwfzluwHKJKBSLMUC2608-39-45 08:48:00 Test Item Value Reference Range Interpretation Comments MPV (test code = MPV) 9.5 7.4-10.4 [facility] CenterGwsbmauLVEBRFLYAX2129-29-46 08:48:00 Test Item Value Reference Range Interpretation Comments Platelet (test code = Platelet) 133 133-450 [facility] CenterKpsoazbSVDQUMMXIK3277-42-17 08:48:00 Test Item Value Reference Range Interpretation Comments RDW (test code = RDW) 12.1 11.5-14.5 [facility] CenterIvrjgqlZGVPAZZISL7881-22-80 08:48:00 Test Item Value Reference Range Interpretation Comments RBC X 10x6 (test code = RBC X 10x6) 3.17 4.20-5.40 [facility] CenterXiqylnrOMSEGCMRBN9297-82-22 08:48:00 Test Item Value Reference Range Interpretation Comments Hct (test code = Hct) 33.5 36.0-48.0 [facility] CenterZrticunAIXKGTAACG8554-36-31 08:48:00 Test Item Value Reference Range Interpretation Comments Hgb (test code = Hgb) 10.8 12.0-16.0 [facility] CenterRcrbmeeTDVEAGEISG8038-05-07 08:48:00 Test Item Value Reference Range Interpretation Comments MCV (test code = MCV) 105.7 80.0-98.0 [facility]LsokisiZJKZETSPKU7732-02-81 08:48:00 Test Item Value Reference Range Interpretation Comments MCH (test code = MCH) 34.1 pg 27.0-31.0 [facility] CenterMarhtioCSUZPEGLCF7907-92-19 08:48:00 Test Item Value Reference Range Interpretation Comments MCHC (test code = MCHC) 32.2 32.0-36.0 [facility]YvcxmqqYOXZJFIOXG3538-68-74 08:48:00 Test Item Value Reference Range Interpretation Comments WBC X 10x3 (test code = WBC X 10x3) 5.5 3.7-10.4 [facility] HospitalJuofjmbKZRWBCDOPQ3601-68-79 08:48:00 Test Item Value Reference Range Interpretation Comments aPTT (test code = aPTT) 34.6 s 22.9-35.8 [facility] [employer] JUJJEGI7959-11-55 08:48:00 Test Item Value Reference Range Interpretation Comments Antibody Scrn (test Positive 1(02/29/16 code = Antibody Scrn) 3:48 AM) [facility] [employer] VWXUOOF1600-07-68 08:48:00 Test Item Value Reference Range Interpretation Comments ABO/Rh (test code = ABO/Rh) A NEG [facility] OybzpidNOMSKWCJYBEU1881-84-95 08:48:00 Test Item Value Reference Range Interpretation Comments CO2 (test code = CO2) 24 24-32 [facility] ResourcesUctftcmVXLBMDXHGLHZ4617-74-08 08:48:00 Test Item Value Reference Range Interpretation Comments Calcium Lvl (test code = Calcium Lvl) 8.4 8.5-10.5 [facility] ResourcesWracijdHEYMIPRLELZZ9264-32-84 08:48:00 Test Item Value Reference Range Interpretation Comments eGFR (test code = eGFR) 49 [facility]mvnckmMFJYCWJSYITM5403-11-57 08:48:00 Test Item Value Reference Range Interpretation Comments Sodium Lvl (test code = Sodium Lvl) 140 135-145 [facility]HvplaenKIHDNMITFGKI9138-22-76 08:48:00 Test Item Value Reference Range Interpretation Comments Creatinine Lvl (test code = Creatinine 1.09 0.50-1.40 Lvl) [facility] ResourcesRejteqoGMXSXVKRJTUW0436-13-53 08:48:00 Test Item Value Reference Range Interpretation Comments BUN (test code = BUN) 40 7-22 [facility] HospitalXotsaxgZPPKEBTYGFGE1277-39-20 08:48:00 Test Item Value Reference Range Interpretation Comments Chloride Lvl (test code = Chloride Lvl) 106 95-109 [facility] HospitalKdwtdxoCZMVYQKCNJQY5774-19-31 08:48:00 Test Item Value Reference Range Interpretation Comments Potassium Lvl (test code = Potassium 3.9 3.5-5.1 Lvl) [facility] HospitalVkrtllqWLSMZXUDDTAL7510-12-25 08:48:00 Test Item Value Reference Range Interpretation Comments Glucose Lvl (test code = Glucose Lvl) 85 70-99 [facility] HospitalIfembaxMRDCSGWBANJG1678-74-02 08:48:00 Test Item Value Reference Range Interpretation Comments AGAP (test code = AGAP) 13.9 10.0-20.0 [facility] CenterWenxjlxBVIKNTAVIN2846-17-70 08:48:00 Test Item Value Reference Range Interpretation Comments Eosinophils # (test code 0.1 See_Comment [A utomated message] The = Eosinophils #) system [facility] generated this result tra nsmitted reference range : <=0.5. The reference r patria was not used to int erpret this result as normal/abnormal . [facility] CenterEjokbnyWYZYFIPNJL1950-05-27 08:48:00 Test Item Value Reference Range Interpretation Comments Basophils # (test code 0.0 See_Comment [Aut omated message] The = Basophils #) system which generated this result tra nsmitted reference range : <=0.2. The reference r patria was not used to int erpret this result as normal/abnormal . [facility] CenterTjbfcpcSIPDSLSXIU7956-28-33 08:48:00 Test Item Value Reference Range Interpretation Comments Basophils (test code = 0.2 See_Comment [Aut omated message] The Basophils) system which ge nerated this result tra nsmitted reference range : <=1.0. The reference r patria was not used to int erpret this result as normal/abnormal . [facility] CenterHbtgatdCAMSJUSURU7133-96-65 08:48:00 Test Item Value Reference Range Interpretation Comments Eosinophils (test code = 1.4 See_Comment [A utomated message] The Eosinophils) system which ge nerated this result tra nsmitted reference range : <=4.0. The reference r patria was not used to int erpret this result as normal/abnormal . [facility] CenterJbevbelZKMMQWAZIG7022-09-82 08:48:00 Test Item Value Reference Range Interpretation Comments Monocytes (test code = Monocytes) 11.8 2.0-12.0 [facility] CenterXjhcuacLHPTPARNOF0438-17-21 08:48:00 Test Item Value Reference Range Interpretation Comments Lymphocytes (test code = Lymphocytes) 17.2 20.0-40.0 [facility] CenterYcqvvwlLMUWYJXSLN8483-41-51 08:48:00 Test Item Value Reference Range Interpretation Comments Segs (test code = Segs) 69.4 45.0-75.0 [facility] CenterDexoeflDJNNWTKFPD3438-64-84 08:48:00 Test Item Value Reference Range Interpretation Comments Lymphocytes # (test code = Lymphocytes 1.0 1.0-5.5 #) [facility] CenterGzebjswXGGUPCOWHA0541-70-16 08:48:00 Test Item Value Reference Range Interpretation Comments Segs-Bands # (test code = Segs-Bands #) 3.8 1.5-8.1 [facility] CenterKwafndbSJKJOVZLFR4654-46-31 08:48:00 Test Item Value Reference Range Interpretation Comments Monocytes # (test code 0.7 See_Comment [Aut omated message] The = Monocytes #) system which generated this result tra nsmitted reference range : <=0.8. The reference r patria was not used to int erpret this result as normal/abnormal . [facility] CenterThdcsqkIZKAIJJRZV3937-27-27 08:48:00 Test Item Value Reference Range Interpretation Comments PROTIME (test code = PROTIME) 15.6 s 12.0-14.7 [facility] CenterMwqdkkcWRNGWRVCWP2027-24-62 08:48:00 Test Item Value Reference Range Interpretation Comments INR (test code = INR) 1.21 0.85-1.17 [facility] CenterKfghlagFYMLKARSYA8958-47-81 08:48:00 Test Item Value Reference Range Interpretation Comments MPV (test code = MPV) 9.5 7.4-10.4 [facility] CenterKnemdboQCXWOZBOMF9382-95-01 08:48:00 Test Item Value Reference Range Interpretation Comments Platelet (test code = Platelet) 133 133-450 [facility] CenterIbvtjfiSHNDZYOKBJ0630-04-07 08:48:00 Test Item Value Reference Range Interpretation Comments RDW (test code = RDW) 12.1 11.5-14.5 [facility] CenterLclpalrNQYDZNMISY3331-72-89 08:48:00 Test Item Value Reference Range Interpretation Comments RBC X 10x6 (test code = RBC X 10x6) 3.17 4.20-5.40 [facility] CenterPkjkppcIYPRMIMDNQ3147-41-88 08:48:00 Test Item Value Reference Range Interpretation Comments Hct (test code = Hct) 33.5 36.0-48.0 [facility] CenterXbxbidrADMSUGGYMT2705-89-37 08:48:00 Test Item Value Reference Range Interpretation Comments Hgb (test code = Hgb) 10.8 12.0-16.0 [facility] CenterZszquyyKJRDFBECMK0201-59-77 08:48:00 Test Item Value Reference Range Interpretation Comments MCV (test code = MCV) 105.7 80.0-98.0 [facility] CenterBkvipsqJUPURUARUF0232-05-13 08:48:00 Test Item Value Reference Range Interpretation Comments MCH (test code = MCH) 34.1 pg 27.0-31.0 [facility] CenterShwqfybYXLLCEVKTY3951-49-60 08:48:00 Test Item Value Reference Range Interpretation Comments MCHC (test code = MCHC) 32.2 32.0-36.0 [facility] CenterGpcinszHQFHGACYMJ0550-75-35 08:48:00 Test Item Value Reference Range Interpretation Comments WBC X 10x3 (test code = WBC X 10x3) 5.5 3.7-10.4 [facility] CenterWgebujrEEMTXBQAHM7175-16-90 08:48:00 Test Item Value Reference Range Interpretation Comments aPTT (test code = aPTT) 34.6 s 22.9-35.8 [facility] [employer] VBRJMKU1636-85-18 08:48:00 Test Item Value Reference Range Interpretation Comments Antibody Scrn (test Positive 1(02/29/16 code = Antibody Scrn) 3:48 AM) [facility] [employer] PRIRCVG1152-25-85 08:48:00 Test Item Value Reference Range Interpretation Comments ABO/Rh (test code = ABO/Rh) A NEG [facility] HospitalWydtotoONTBLLSHHHRT7082-01-26 08:48:00 Test Item Value Reference Range Interpretation Comments CO2 (test code = CO2) 24 24-32 [facility] HospitalQpkghirDFPVQSZCHLIM1284-84-22 08:48:00 Test Item Value Reference Range Interpretation Comments Calcium Lvl (test code = Calcium Lvl) 8.4 8.5-10.5 [facility] HospitalSnkigqsBRKCBAJROIJH1721-78-35 08:48:00 Test Item Value Reference Range Interpretation Comments eGFR (test code = eGFR) 49 [facility] HospitalUolmoaoTZWIHDQVICSM1496-95-45 08:48:00 Test Item Value Reference Range Interpretation Comments Sodium Lvl (test code = Sodium Lvl) 140 135-145 [facility] HospitalAicfwlnTRIGKCTRTSPA1086-44-01 08:48:00 Test Item Value Reference Range Interpretation Comments Creatinine Lvl (test code = Creatinine 1.09 0.50-1.40 Lvl) [facility] HospitalWxdzihnXQKABCOTUGQT2337-82-75 08:48:00 Test Item Value Reference Range Interpretation Comments BUN (test code = BUN) 40 7-22 [facility] HospitalLbghomyEJOOUTXRNRKA8036-95-73 08:48:00 Test Item Value Reference Range Interpretation Comments Chloride Lvl (test code = Chloride Lvl) 106 95-109 [facility] HospitalEjxwsdmPERTZWDGLTUG5554-90-36 08:48:00 Test Item Value Reference Range Interpretation Comments Potassium Lvl (test code = Potassium 3.9 3.5-5.1 Lvl) [facility] HospitalRmbbvofWITXXVQWNXQJ8973-45-93 08:48:00 Test Item Value Reference Range Interpretation Comments Glucose Lvl (test code = Glucose Lvl) 85 70-99 [facility] HospitalBawtargGMWPJJHZDUCO6582-16-72 08:48:00 Test Item Value Reference Range Interpretation Comments AGAP (test code = AGAP) 13.9 10.0-20.0 [facility] CenterNojdkyoYSTFJDXJYG3800-64-53 08:48:00 Test Item Value Reference Range Interpretation Comments Eosinophils # (test code 0.1 See_Comment [A utomated message] The = Eosinophils #) system whic h generated this result tra nsmitted reference range : <=0.5. The reference r patria was not used to int erpret this result as normal/abnormal . [facility] CenterYdgpehuXXJTQJWMKT0004-51-05 08:48:00 Test Item Value Reference Range Interpretation Comments Basophils # (test code 0.0 See_Comment [Aut omated message] The = Basophils #) system which generated this result tra nsmitted reference range : <=0.2. The reference r patria was not used to int erpret this result as normal/abnormal . [facility] CenterDzokkhcOUBPEEVYGG4839-75-11 08:48:00 Test Item Value Reference Range Interpretation Comments Basophils (test code = 0.2 See_Comment [Aut omated message] The Basophils) system which ge nerated this result tra nsmitted reference range : <=1.0. The reference r patria was not used to int erpret this result as normal/abnormal . [facility] CenterMjrtmdeLPGNEBSAUP4430-89-70 08:48:00 Test Item Value Reference Range Interpretation Comments Eosinophils (test code = 1.4 See_Comment [A utomated message] The Eosinophils) system which ge nerated this result tra nsmitted reference range : <=4.0. The reference r patria was not used to int erpret this result as normal/abnormal . [facility] CenterPufavfdZENWWPUDSY7189-83-18 08:48:00 Test Item Value Reference Range Interpretation Comments Monocytes (test code = Monocytes) 11.8 2.0-12.0 [facility] CenterQefugncVZRCMDHDGT4101-03-23 08:48:00 Test Item Value Reference Range Interpretation Comments Lymphocytes (test code = Lymphocytes) 17.2 20.0-40.0 [facility] CenterZnyrdueRUSNSGVEDN3494-78-46 08:48:00 Test Item Value Reference Range Interpretation Comments Segs (test code = Segs) 69.4 45.0-75.0 [facility] CenterVjjjayiKGVTNISUIE0505-62-31 08:48:00 Test Item Value Reference Range Interpretation Comments Lymphocytes # (test code = Lymphocytes 1.0 1.0-5.5 #) [facility] CenterGhkgkrhJSNMPRGMWQ6798-72-04 08:48:00 Test Item Value Reference Range Interpretation Comments Segs-Bands # (test code = Segs-Bands #) 3.8 1.5-8.1 [facility] CenterLgdjulrAWIONTBNRI2420-61-72 08:48:00 Test Item Value Reference Range Interpretation Comments Monocytes # (test code 0.7 See_Comment [Aut omated message] The = Monocytes #) system which generated this result tra nsmitted reference range : <=0.8. The reference r patria was not used to int erpret this result as normal/abnormal . [facility] CenterRhlyjraKNZMRONMMK8998-36-26 08:48:00 Test Item Value Reference Range Interpretation Comments PROTIME (test code = PROTIME) 15.6 s 12.0-14.7 [facility] CenterJftflojAXCUQMUVGO2504-48-91 08:48:00 Test Item Value Reference Range Interpretation Comments INR (test code = INR) 1.21 0.85-1.17 [facility] ServicesZwxwggkCOLHCAJSYR2297-31-88 08:48:00 Test Item Value Reference Range Interpretation Comments MPV (test code = MPV) 9.5 7.4-10.4 [facility] ServicesWejfmexKNTKMWGPEE0613-97-29 08:48:00 Test Item Value Reference Range Interpretation Comments Platelet (test code = Platelet) 133 133-450 [facility] CenterGejlpyvQENZXKHWQM6607-62-97 08:48:00 Test Item Value Reference Range Interpretation Comments RDW (test code = RDW) 12.1 11.5-14.5 [facility] ServicesAmzzbkeJWGABOARCZ0701-01-73 08:48:00 Test Item Value Reference Range Interpretation Comments RBC X 10x6 (test code = RBC X 10x6) 3.17 4.20-5.40 [facility] CenterNupvzhjRAKQNENPAA1791-55-39 08:48:00 Test Item Value Reference Range Interpretation Comments Hct (test code = Hct) 33.5 36.0-48.0 [facility] CenterThtqcyaPFGTOVSIDD2015-49-68 08:48:00 Test Item Value Reference Range Interpretation Comments Hgb (test code = Hgb) 10.8 12.0-16.0 [facility] ServicesRbcrrnyQLYBYWPIRM2121-15-36 08:48:00 Test Item Value Reference Range Interpretation Comments MCV (test code = MCV) 105.7 80.0-98.0 [facility] ServicesQbqqghyXQSSTRHZMA4820-91-94 08:48:00 Test Item Value Reference Range Interpretation Comments MCH (test code = MCH) 34.1 pg 27.0-31.0 [facility] CenterDwyivljIIXPFPTQDD7124-67-29 08:48:00 Test Item Value Reference Range Interpretation Comments MCHC (test code = MCHC) 32.2 32.0-36.0 [facility] ServicesXaceynsQPEWCKVQRA0300-64-94 08:48:00 Test Item Value Reference Range Interpretation Comments WBC X 10x3 (test code = WBC X 10x3) 5.5 3.7-10.4 [facility] CenterEytzuauHKYPSPHLGC2041-13-80 08:48:00 Test Item Value Reference Range Interpretation Comments aPTT (test code = aPTT) 34.6 s 22.9-35.8 [facility] NNEJWRQ5610-82-50 08:48:00 Test Item Value Reference Range Interpretation Comments Antibody Scrn (test Positive 1(02/29/16 code = Antibody Scrn) 3:48 AM) [facility] ELXEFWY0982-59-61 08:48:00 Test Item Value Reference Range Interpretation Comments ABO/Rh (test code = ABO/Rh) A NEG [facility] HospitalSvfnmssLFVBVSCBNIUQ0004-22-59 08:48:00 Test Item Value Reference Range Interpretation Comments CO2 (test code = CO2) 24 24-32 [facility] HospitalLvpugtfGHVOSQJVEKRV9043-22-98 08:48:00 Test Item Value Reference Range Interpretation Comments Calcium Lvl (test code = Calcium Lvl) 8.4 8.5-10.5 [facility] HospitalNaxkyutRPCMLRQCNSLX0602-80-19 08:48:00 Test Item Value Reference Range Interpretation Comments eGFR (test code = eGFR) 49 [facility] HospitalQswrgkfYYFTDLNULRFP6180-53-16 08:48:00 Test Item Value Reference Range Interpretation Comments Sodium Lvl (test code = Sodium Lvl) 140 135-145 [facility][id number] 08:48:00 Test Item Value Reference Range Interpretation Comments Creatinine Lvl (test code = Creatinine 1.09 0.50-1.40 Lvl) [facility]PhyjjjmWIEFLOSESTIA5636-70-82 08:48:00 Test Item Value Reference Range Interpretation Comments BUN (test code = BUN) 40 7-22 [facility] HospitalPqaupopFYVFZXRAYXJV4963-87-31 08:48:00 Test Item Value Reference Range Interpretation Comments Chloride Lvl (test code = Chloride Lvl) 106 95-109 [facility] HospitalKbqsqymNEOYVEUDAPCE1686-32-52 08:48:00 Test Item Value Reference Range Interpretation Comments Potassium Lvl (test code = Potassium 3.9 3.5-5.1 Lvl) [facility] HospitalGcxqesgIOYEGWORVNDY0217-83-40 08:48:00 Test Item Value Reference Range Interpretation Comments Glucose Lvl (test code = Glucose Lvl) 85 70-99 [facility] HospitalHifgqjqLSUFTAUOAUHJ5138-49-52 08:48:00 Test Item Value Reference Range Interpretation Comments AGAP (test code = AGAP) 13.9 10.0-20.0 [facility]DtuaoakRLUAAXFDBD8381-86-94 08:48:00 Test Item Value Reference Range Interpretation Comments Eosinophils # (test code 0.1 See_Comment [A utomated message] The = Eosinophils #) system whic h generated this result tra nsmitted reference range : <=0.5. The reference r patria was not used to int erpret this result as normal/abnormal . [facility]GtqrixjSBFMTINJAY6457-03-10 08:48:00 Test Item Value Reference Range Interpretation Comments Basophils # (test code 0.0 See_Comment [Aut omated message] The = Basophils #) system which generated this result tra nsmitted reference range : <=0.2. The reference r patria was not used to int erpret this result as normal/abnormal . [facility] CenterAktjkqaGMTDAHHJMA6818-81-99 08:48:00 Test Item Value Reference Range Interpretation Comments Basophils (test code = 0.2 See_Comment [Aut omated message] The Basophils) system which ge nerated this result tra nsmitted reference range : <=1.0. The reference r patria was not used to int erpret this result as normal/abnormal . [facility] CenterHsbbehfURXYECITDY2613-64-17 08:48:00 Test Item Value Reference Range Interpretation Comments Eosinophils (test code = 1.4 See_Comment [A utomated message] The Eosinophils) system which ge nerated this result tra nsmitted reference range : <=4.0. The reference r patria was not used to int erpret this result as normal/abnormal . [facility] CenterEhwslhtJCMZHXDHOX2535-32-67 08:48:00 Test Item Value Reference Range Interpretation Comments Monocytes (test code = Monocytes) 11.8 2.0-12.0 [facility]XhpwgyhANYJBHPQBB8778-32-64 08:48:00 Test Item Value Reference Range Interpretation Comments Lymphocytes (test code = Lymphocytes) 17.2 20.0-40.0 [facility] CenterVnlefsxZBUMMYIKKH5511-31-02 08:48:00 Test Item Value Reference Range Interpretation Comments Segs (test code = Segs) 69.4 45.0-75.0 [facility] CenterZzccmikGGFJKIDLAN5028-77-61 08:48:00 Test Item Value Reference Range Interpretation Comments Lymphocytes # (test code = Lymphocytes 1.0 1.0-5.5 #) [facility] CenterPqygrihZNIRKWVFMQ5287-53-13 08:48:00 Test Item Value Reference Range Interpretation Comments Segs-Bands # (test code = Segs-Bands #) 3.8 1.5-8.1 [facility] CenterDrbdcvzUZJJYGUGBQ7321-39-18 08:48:00 Test Item Value Reference Range Interpretation Comments Monocytes # (test code 0.7 See_Comment [Aut omated message] The = Monocytes #) system which generated this result tra nsmitted reference range : <=0.8. The reference r patria was not used to int erpret this result as normal/abnormal . [facility] CenterMkpgmmcRIJKRUOIWU8746-69-03 08:48:00 Test Item Value Reference Range Interpretation Comments PROTIME (test code = PROTIME) 15.6 s 12.0-14.7 [facility] CenterZknhnorWVOQBDEPOF6177-85-98 08:48:00 Test Item Value Reference Range Interpretation Comments INR (test code = INR) 1.21 0.85-1.17 [facility] CenterRzrifxqEDLRHPGXHR8320-18-13 08:48:00 Test Item Value Reference Range Interpretation Comments MPV (test code = MPV) 9.5 7.4-10.4 [facility] CenterNvadmgoRVUQQCWHPJ3776-82-71 08:48:00 Test Item Value Reference Range Interpretation Comments Platelet (test code = Platelet) 133 133-450 [facility] CenterPrgkfjmZIZFXNIFXS5808-59-27 08:48:00 Test Item Value Reference Range Interpretation Comments RDW (test code = RDW) 12.1 11.5-14.5 [facility]XvpfyinSJBLCSNXBE6938-97-08 08:48:00 Test Item Value Reference Range Interpretation Comments RBC X 10x6 (test code = RBC X 10x6) 3.17 4.20-5.40 [facility] CenterCknkprrAEYXXBFLHV9440-58-15 08:48:00 Test Item Value Reference Range Interpretation Comments Hct (test code = Hct) 33.5 36.0-48.0 [facility] CenterRsaszmkMRXONKFXNQ8709-01-52 08:48:00 Test Item Value Reference Range Interpretation Comments Hgb (test code = Hgb) 10.8 12.0-16.0 [facility] CenterUlivopeVHEOROVPEI1717-15-33 08:48:00 Test Item Value Reference Range Interpretation Comments MCV (test code = MCV) 105.7 80.0-98.0 [facility] CenterRcgqhqqMZBHENZTVJ9576-04-65 08:48:00 Test Item Value Reference Range Interpretation Comments MCH (test code = MCH) 34.1 pg 27.0-31.0 [facility] CenterDblgiisQOTAQYGDNR9105-09-92 08:48:00 Test Item Value Reference Range Interpretation Comments MCHC (test code = MCHC) 32.2 32.0-36.0 [facility] CenterWrflpejURFQNKBZGH3089-28-62 08:48:00 Test Item Value Reference Range Interpretation Comments WBC X 10x3 (test code = WBC X 10x3) 5.5 3.7-10.4 [facility] CenterQmykoweQRQQATNWET0197-06-39 08:48:00 Test Item Value Reference Range Interpretation Comments aPTT (test code = aPTT) 34.6 s 22.9-35.8 [facility] RLSQLGG6162-88-70 08:48:00 Test Item Value Reference Range Interpretation Comments Antibody Scrn (test Positive 1(02/29/16 code = Antibody Scrn) 3:48 AM) [facility] [id number] 08:48:00 Test Item Value Reference Range Interpretation Comments ABO/Rh (test code = ABO/Rh) A NEG [facility] HospitalNhhcwsjKQNXMGVTIGAZ1705-86-10 08:48:00 Test Item Value Reference Range Interpretation Comments CO2 (test code = CO2) 24 24-32 [facility] HospitalNstkgrhGAPVMSVIMNPV9994-51-45 08:48:00 Test Item Value Reference Range Interpretation Comments Calcium Lvl (test code = Calcium Lvl) 8.4 8.5-10.5 [facility] HospitalFyzuveeFUHBYUAJIMLO9808-92-31 08:48:00 Test Item Value Reference Range Interpretation Comments eGFR (test code = eGFR) 49 [facility] HospitalAvqetuuSHJLZIGVXJLS1041-67-67 08:48:00 Test Item Value Reference Range Interpretation Comments Sodium Lvl (test code = Sodium Lvl) 140 135-145 [facility] HospitalDqruhimWZAFBSRNZFDY8900-20-68 08:48:00 Test Item Value Reference Range Interpretation Comments Creatinine Lvl (test code = Creatinine 1.09 0.50-1.40 Lvl) [facility] HospitalMrztuvcAGGZJGNTQGNK0163-39-84 08:48:00 Test Item Value Reference Range Interpretation Comments BUN (test code = BUN) 40 7-22 [facility] HospitalVzkbmlzELHDRHXPMCHB0373-41-75 08:48:00 Test Item Value Reference Range Interpretation Comments Chloride Lvl (test code = Chloride Lvl) 106 95-109 [facility] HospitalPodpzhmMHUFKMARHIFY4015-47-17 08:48:00 Test Item Value Reference Range Interpretation Comments Potassium Lvl (test code = Potassium 3.9 3.5-5.1 Lvl) [facility] HospitalAnxfcbaMXIUHUENYZBL3277-07-55 08:48:00 Test Item Value Reference Range Interpretation Comments Glucose Lvl (test code = Glucose Lvl) 85 70-99 [facility] HospitalQdejxqiGNGVVPEXEFWD7775-96-35 08:48:00 Test Item Value Reference Range Interpretation Comments AGAP (test code = AGAP) 13.9 10.0-20.0 [facility]SrcsnwkCCIIGZZHPE5245-13-24 08:48:00 Test Item Value Reference Range Interpretation Comments Eosinophils # (test code 0.1 See_Comment [A utomated message] The = Eosinophils #) system whic h generated this result tra nsmitted reference range : <=0.5. The reference r patria was not used to int erpret this result as normal/abnormal . [facility] CenterOmcvfawLATFSKCYAA4468-94-17 08:48:00 Test Item Value Reference Range Interpretation Comments Basophils # (test code 0.0 See_Comment [Aut omated message] The = Basophils #) system which generated this result tra nsmitted reference range : <=0.2. The reference r patria was not used to int erpret this result as normal/abnormal . [facility] CenterBojjbqaQTBKWXASCY5196-80-69 08:48:00 Test Item Value Reference Range Interpretation Comments Basophils (test code = 0.2 See_Comment [Aut omated message] The Basophils) system which ge nerated this result tra nsmitted reference range : <=1.0. The reference r patria was not used to int erpret this result as normal/abnormal . [facility] CenterVozoyvdMNOZWJVZHW8338-28-31 08:48:00 Test Item Value Reference Range Interpretation Comments Eosinophils (test code = 1.4 See_Comment [A utomated message] The Eosinophils) system which ge nerated this result tra nsmitted reference range : <=4.0. The reference r patria was not used to int erpret this result as normal/abnormal . [facility] CenterCtjwspgEYHFPQUXNU3822-92-51 08:48:00 Test Item Value Reference Range Interpretation Comments Monocytes (test code = Monocytes) 11.8 2.0-12.0 [facility]XdrsgwgEUJJECBDQO9206-40-31 08:48:00 Test Item Value Reference Range Interpretation Comments Lymphocytes (test code = Lymphocytes) 17.2 20.0-40.0 [facility] CenterZduzwlnORXVJFNPJF2996-93-86 08:48:00 Test Item Value Reference Range Interpretation Comments Segs (test code = Segs) 69.4 45.0-75.0 [facility] CenterOlrhxnvUBPSMYAXXF7909-50-82 08:48:00 Test Item Value Reference Range Interpretation Comments Lymphocytes # (test code = Lymphocytes 1.0 1.0-5.5 #) [facility] CenterHbaadtrCCDESDWHYS9285-99-33 08:48:00 Test Item Value Reference Range Interpretation Comments Segs-Bands # (test code = Segs-Bands #) 3.8 1.5-8.1 [facility] CenterTtpldlgFGAFZQZYZF6477-96-62 08:48:00 Test Item Value Reference Range Interpretation Comments Monocytes # (test code 0.7 See_Comment [Aut omated message] The = Monocytes #) system which generated this result tra nsmitted reference range : <=0.8. The reference r patria was not used to int erpret this result as normal/abnormal . [facility] CenterIkeehqyDNOPHJCTWE5326-26-22 08:48:00 Test Item Value Reference Range Interpretation Comments PROTIME (test code = PROTIME) 15.6 s 12.0-14.7 [facility] CenterCnitmfuZCMGVVOHPF2802-21-69 08:48:00 Test Item Value Reference Range Interpretation Comments INR (test code = INR) 1.21 0.85-1.17 [facility] CenterIqngsbjTLQWPJKXZV6082-50-17 08:48:00 Test Item Value Reference Range Interpretation Comments MPV (test code = MPV) 9.5 7.4-10.4 [facility] CenterVazyryaJTUNCJKKPT6481-35-01 08:48:00 Test Item Value Reference Range Interpretation Comments Platelet (test code = Platelet) 133 133-450 [facility] CenterJjnrwreUNDPJMPNDG4406-21-06 08:48:00 Test Item Value Reference Range Interpretation Comments RDW (test code = RDW) 12.1 11.5-14.5 [facility] CenterSsyfuxdAKWRDTKTDK9399-15-32 08:48:00 Test Item Value Reference Range Interpretation Comments RBC X 10x6 (test code = RBC X 10x6) 3.17 4.20-5.40 [facility] CenterMnhrshmIUPBCVCMTJ0119-04-55 08:48:00 Test Item Value Reference Range Interpretation Comments Hct (test code = Hct) 33.5 36.0-48.0 [facility] CenterWhmhfgjPLTFHWFNGF1083-44-13 08:48:00 Test Item Value Reference Range Interpretation Comments Hgb (test code = Hgb) 10.8 12.0-16.0 [facility] CenterMxbprlcSBNHTXIPKP0057-61-99 08:48:00 Test Item Value Reference Range Interpretation Comments MCV (test code = MCV) 105.7 80.0-98.0 [facility] CenterBidkkoxQMAJUCOACW8273-80-24 08:48:00 Test Item Value Reference Range Interpretation Comments MCH (test code = MCH) 34.1 pg 27.0-31.0 [facility] CenterVkxdniyHMEFNKPIDR0301-38-11 08:48:00 Test Item Value Reference Range Interpretation Comments MCHC (test code = MCHC) 32.2 32.0-36.0 [facility] CenterNdbqfjdZSWRLUNVQP3929-01-70 08:48:00 Test Item Value Reference Range Interpretation Comments WBC X 10x3 (test code = WBC X 10x3) 5.5 3.7-10.4 [facility] CenterXimceuwFYFWKOERHG6909-24-74 08:48:00 Test Item Value Reference Range Interpretation Comments aPTT (test code = aPTT) 34.6 s 22.9-35.8 [facility]
[2023-04-16] MEDS ORDERED: NA CHLORIDE 0.9% 500 ML IV ONE (14:15)
[2023-04-16] MEDS ORDERED: HOME MED 1 EA UNK [ALBUTEROL INHALER 60 PUFF/8 GM] IH PRN (18:59)
[2023-04-16] MEDS ORDERED: MAGNESIUM HYDROXIDE 8% 30 ML PO PRN (19:01)
[2023-04-16] MEDS: [UNRECOGNIZED DRUG - MIXTURE] IH SCH (20:00)
[2023-04-16] MEDS: TOBRADEX 0.3-0.1% OPTH OINTMENT EACH EYE SCH ×2 (20:00→23:37)
[2023-04-16] MEDS ORDERED: ALBUTEROL INHALER 60 PUFF/8 GM IH PRN (20:28)
[2023-04-16] MEDS: NYSTATIN PWDR 100000 UNIT/GM TOP SCH (20:32)
[2023-04-16] MEDS: GABAPENTIN 300 MG CAP PO SCH (20:32)
[2023-04-16] MEDS: levETIRAcetam 500 MG TAB PO SCH (20:32)
[2023-04-16] MEDS: clonazePAM 1 MG TAB PO SCH (20:33)
[2023-04-16] MEDS: hydrOXYzine HCL 25 MG TAB PO SCH (20:35)
[2023-04-16] MEDS: ATORVASTATIN 20 MG TAB PO SCH (20:36)
[2023-04-16] MEDS: NA CHLORIDE 0.9% 1,000 ML IV SCH (20:44)
[2023-04-16] MEDS ORDERED: clonazePAM 1 MG TAB PO SCH (21:00)
[2023-04-16] MEDS: APIXABAN 2.5 MG TABLET PO SCH (21:12)
--- NOTE | 2023-04-17 00:41 | HP ---
Date of Admission: 04/16/2023 [facility] Admission History And Physical Time Of Service: 12 p.m. Chief Complaint: "I am very weak and need a lot of help." History Of Present Illness: Ms. España is an 82-year-old patient with multiple medical problems inc luding bowel obstruction, coronary artery disease, congestive heart failure, osteoarthritis, COPD, le ft hip fracture a year ago, bilateral footdrop due to neuropathy for which she wears AFO, and right s houlder replacement who had a significant decline in mobility over the last month [facility] on [facility], 2023 with 4 to 5 days of constipa tion. Her workup revealed an ileus and urinary tract infection. She received milk of magnesia and a ntibiotics and despite that had somewhat worsening course with a decline in mobilization. While at [facility], Physical Therapy attempted to ambulate the patient, but she was unable to, likely related t o complications of her hospital stay and the AFOs. She was discharged home, but at home still failed to thrive and felt that her urinary tract infection symptoms had returned. She would get dizzy on s tanding due to the low blood pressure and blurred vision as she would stand, which seemed to return o n sitting, consistent with orthostatic blood pressures. She also had significant skin breakdown in t he sacral area secondary to her incontinence and difficulty with mobilization. In addition, given he r left shoulder replacement, she is at significant risk of recurrent falls and potential injury and i s therefore felt to be a more appropriate candidate for aggressive inpatient rehabilitation as her co morbid conditions are addressed. Past Medical History: Multiple urinary tract infections, COPD, aortic insufficiency, seizures, bilat eral footdrop, peripheral neuropathy, stage 2 kidney disease, neurogenic bladder, anxiety, congestive heart failure, atrial fibrillation, and hypertension. Past Surgical History: Appendectomy, cholecystectomy, neck surgery, cardiac stents, hernia repair, h ysterectomy, pacemaker placement, tonsillectomy, and left shoulder surgery. X-ray/imaging: Abdomen x-ray on 04/08/2023 showed nonspecific nonobstructive bowel gas pattern, mode rate fecal residue scattered throughout the colon, and multiple surgical changes as has been reported . Allergies: VANCOMYCIN AND ADHESIVE TAPE. Medications: Ventolin inhaler 2 puffs every 4 hours, Eliquis 2.5 mg daily, Artificial Tears 1 drop i n each eye daily, vitamin C 500 mg daily, aspirin 81 mg daily, Lipitor 20 mg at bedtime, vitamin D 20 00 International Units daily, clonazepam 2 mg at bedtime, gabapentin 300 mg 3 times daily, Atarax 25 mg at bedtime as needed, Keppra 250 mg twice daily, Synthroid 0.1 mg daily, milk of magnesia 15 mL ev abbey 8 hours as needed, Mycostatin powder applied topically twice daily as needed, Protonix 40 mg robert y, and potassium 20 mEq daily. She is receiving IV fluids. In addition, she has tobramycin dexameth asone applied topically to each eye every 4 hours as needed and tramadol 50 mg every 6 hours as neede d. Review of Systems: As noted, she has constipation, some back pain, muscle spasms, footdrop, but no fevers or chills. No active psychiatric issues. No other positives other than mentioned. Laboratory Studies: White blood cell count 6.4, hemoglobin 10.8, hematocrit 33.2, and platelets 231. Sodium 137, potassium 4.6, glucose 96, BUN 42, creatinine 1.64, and calcium 9.3. Physical Examination: Vital Signs: Blood pressure 121/58, pulse 68, respiratory rate 16, temperature 97.4, and oxygen satu ration 100%. Weight 120 pounds, height 5 feet 5 inches, BMI 20.5. General: Ms. España is resting comfortably. She is in no significant distress. HEENT: She appears normocephalic, atraumatic. Sclerae anicteric. Oropharynx is pink and moist. Neck: Supple. Chest: Clear. Extremities: No significant edema or cyanosis. Neurologic: Cranial nerves show no focal deficits. Motor examination shows diffuse weakness, at reji st 4/5 proximally in the lower extremities and distally and similarly so in the upper extremities. S he has a decreased light touch and temperature in the arms and legs in a stocking-glove fashion. Dep ressed reflexes. Regarding her gait, she does require maximal assistance. She is only ambulating ab out 10 feet with a rolling walker. She does have the AFOs in place. Her wnuvmu-fn-zqt transfers are with minimum assistance. She did multiple stand and transfers with m aximum assistance. Toilet transfers done with maximum assistance. Assessment: Ms. España is an 82-year-old patient admitted to the inpatient rehabilitation unit with a rehabilitation impairment category of 20 miscellaneous. Her rehabilitation impairment group code is 16, debility, noncardiac. Her etiologic diagnosis is ileus. Active comorbids are atrial fibrilla tion, coronary artery disease, constipation, chronic obstructive pulmonary disease, decreased mobilit y, decrease in physical functioning, dyslipidemia, and rheumatoid arthritis. Plan: 1.She will have physical and occupational therapy 3 hours a day, 5 of 7. If need be, 0.5 hours a da y of speech therapy for 5 of 7 days. 2.She has multiple comorbids and she will have Eliquis 2.5 mg twice daily for DVT prophylaxis. Cont inue with Lipitor 20 mg daily for dyslipidemia, vitamin D for low vitamin D, clonazepam for anxiety, gabapentin for neuropathic pain, and Keppra 250 mg twice daily for seizures. Continue tramadol for p ain. Impact Of Comorbids: Her bilateral footdrop makes it difficult for her to ambulate very well; mendez r, she has been using them for quite a while and will be worked around using a rolling walker. She i s also significantly debilitated and will require an extended period of time to begin to improve and gain household distances and beyond. Her other comorbid conditions are managed by continuing her med ications including for atrial fibrillation, which puts her at risk for stroke and she has Eliquis yumiko t will continue. She also has ileus, so bowel habits will be evaluated on a regular basis including using stool softeners, laxatives and if need be, Fleet enema. Rehab Specific Plan: 1.Ms. España will have 3 hours a day, 5 of 7 days of physical and occupational therapy to improve h er upper and lower body dressing, transferring, toileting, showering, ambulating, and performing acti vities of daily living. 2.She will ambulate at least household distances with supervision, that is over 50 feet. 3.Try to go up and down 5 steps with supervision. 4.Perform cognitive functioning with supervision. 5.Her medical conditions will be managed adequately. 6.She will have detention to assess all of her daily needs and vitals and look for any obvious signs of infection such as with fever or white blood cell count elevated. 7.She has a good understanding of the reason for her admission to the inpatient rehabilitation unit. She has a good potential to improve and will require physical and occupational therapy and perhaps speech therapy as well. If required, Nutritional Service, Wound Care Service, Psychiatric Service, t he Pulmonary and Cardiology Services along with the Renal Service may be consulted. Given her comple x medical condition and risk of further complications, rehabilitation cannot be safely or effectively performed at a lower level of care such as a detention facility. Barriers To Discharge: Given her bilateral AFOs, she will require longer time to begin to ambulate a fter her debility. She does have an ileus and will require good bowel habits to help prevent worseni ng. She does have atrial fibrillation and has a risk of stroke and a risk of bleeding if falling and Eliquis will be continued and fall precautions adhered to at all times. Estimated Length Of Stay: Around 12 to 14 days. Disposition: Home with family. Prognosis: Fair. Rehabilitation Goals: 1.Become modified independent with upper and lower body dressing. 2.Modified independent with ambulation over household distances. 3.Perform showering and toileting with supervision to modified independence. 4.To have her medical conditions managed adequately. 5.Have her pain addressed to the level of 3 or less out of 10. I acknowledge that I personally performed a full physical examination on Ms. España, no later than 2 4 hours after admission to the inpatient rehabilitation unit and determined that she is able to marlee ate the above course of treatment at an intensive level for a reasonable period of time. A detailed individualized plan of care for her will be completed by hospital day 4 based on the preadmission screen, history and physical, and t herapy evaluations. NAKIA Voice ID: [id number]
[2023-04-17] MEDS: TOBRADEX 0.3-0.1% OPTH OINTMENT EACH EYE SCH ×6 (04:00→23:38)
[2023-04-17] MEDS: NA CHLORIDE 0.9% 1,000 ML IV SCH (04:20)
[2023-04-17] MEDS: LEVOTHYROXINE SOD 0.1 MG TAB PO SCH (05:36)
[2023-04-17] MEDS ORDERED: PANTOPRAZOLE 40MG TABLET PO SCH (06:30)
[2023-04-17] MEDS: NYSTATIN PWDR 100000 UNIT/GM TOP SCH ×2 (07:01→20:47)
[2023-04-17] MEDS: clonazePAM 1 MG TAB PO SCH ×2 (07:02→20:27)
[2023-04-17] MEDS: PANTOPRAZOLE 40MG TABLET PO SCH (07:02)
[2023-04-17] MEDS: levETIRAcetam 500 MG TAB PO SCH ×2 (07:03→20:26)
[2023-04-17] MEDS: POTASSIUM CL SA 10 MEQ TAB PO SCH (07:03)
[2023-04-17] MEDS: VITAMIN D 1000 UNIT TAB PO SCH (07:03)
[2023-04-17] MEDS: ASCORBIC ACID 500 MG TABLET PO SCH (07:05)
[2023-04-17] MEDS: GABAPENTIN 300 MG CAP PO SCH ×3 (07:05→20:27)
[2023-04-17] MEDS: APIXABAN 2.5 MG TABLET PO SCH ×2 (07:05→20:25)
[2023-04-17] MEDS: ASPIRIN EC 81 MG TAB PO SCH (07:06)
[2023-04-17] MEDS: TRAMADOL HCL 50 MG TAB PO PRN ×2 (07:22→14:36)
[2023-04-17 07:48] LABS: Hematocrit 29.3 % (36.0-45.0); Lymphocytes % 32.9 % (15.3-44.8); MCV 101.6 fL (80-100); MPV 6.9 fL (7.6-11.3); RBC Red Blood Cell Count 2.89 M/uL (3.86-4.86)
[2023-04-17] MEDS: POLYVINYL ALCOHOL 1.4% 15 ML EACH EYE SCH (08:00)
[2023-04-17] MEDS: [UNRECOGNIZED DRUG - MIXTURE] IH SCH ×2 (08:00→20:00)
[2023-04-17] MEDS ORDERED: APIXABAN 2.5 MG TABLET PO SCH (08:00)
[2023-04-17 08:20] LABS: Albumin 2.9 g/dL (3.4-5.0); Magnesium 1.8 mg/dL (1.6-2.4); Prealbumin 15.3 mg/dL (20-40)
[2023-04-17 10:43] LABS: Specific Gravity 1.017 (1.005-1.030); Transitional Epithelial <5 /HPF (None Seen); Urine Bacteria None Seen /HPF (<20); Urine Bilirubin NEGATIVE (Negative); Urine Blood Trace (Negative); Urine Clarity Extremely Turbid (Clear); Urine Color Light-Yellow (Yellow); Urine Glucose NEGATIVE (Negative); Urine Mucus Slight /HPF (None Seen); Urine Protein TRACE (Negative); Urine RBC <5 /HPF (None Seen); Urine Urobilinogen Normal (Normal); Urine pH 5.5 (5.0-7.0)
[2023-04-17] MEDS: LIDOCAINE 4% PATCH TOP SCH (15:04)
[2023-04-17] MEDS: FUROSEMIDE 20 MG TABLET PO SCH (17:49)
[2023-04-17] MEDS: AMIODARONE HCL 200 MG TAB PO SCH (17:50)
[2023-04-17] MEDS: CRANBERRY FRUIT EXTRACT 200 MG CAP PO SCH (20:25)
[2023-04-17] MEDS: ENSURE HIGH PROTEIN 237 ML CAN PO SCH (20:26)
[2023-04-17] MEDS: ATORVASTATIN 20 MG TAB PO SCH (20:27)
[2023-04-17] MEDS: hydrOXYzine HCL 25 MG TAB PO SCH (21:00)
[2023-04-17] MEDS ORDERED: TRAZODONE 50 MG TABLET PO SCH (21:00)
--- NOTE | 2023-04-17 21:14 | PN ---
Date of Progress Note: 04/17/2023 Time Of Service: 1:00 p.m. Subjective: Ms. España is resting in bed. Does report some back pain and pain in the shoulder, lef t. Other than that is able to participate in therapy and feels that progress is being made with her therapy. Also, complains about not being able to sleep well and requested something for sleep. Review of Systems: No fevers or chills. No rash, no headache. No psychiatric issues. No active pulmonary, gastrointes tinal, or genitourinary issues. Physical Examination: Vital Signs: Blood pressure 140/64, pulse 78, respiratory rate of 16, temperature is 97.4, oxygen sa turation 96% on room air. Weight 123 pounds. Height 5 feet 5 inches. BMI 20.5. General: Ms. España is resting comfortably in no significant distress. HEENT: She appears normocephalic, atraumatic. Sclerae anicteric. Oropharynx is moist. Neck: Supple. Chest: Clear. Heart: Regular. Extremities: No significant edema, cyanosis. Neurological: She is diffusely weak in the lower extremities, but improving. She does have mild art hritic pain limiting some of her full exertion of strength, but still doing her best and doing well. Laboratory Studies: White blood cell count 6.0, hemoglobin 9.8, platelets 240. Sodium 138, potassiu m 4.0, chloride 110, carbon dioxide 24, BUN 48, creatinine 1.57. Prealbumin 15.3, albumin 2.9. Her urinalysis shows esterase 250, trace blood, 20-50 white blood cells, bacteria none seen, extremely tu rbid with trace protein identified. Urine cultures are pending. X-ray/imaging: None. Current Medications: Ventolin inhaler 2 puffs every 4 hours, amiodarone 100 mg daily, Eliquis 2.5 mg twice daily, vitamin C 500 mg daily, aspirin 81 mg daily, Lipitor 20 mg at bedtime, vitamin D 2000 u nits daily, Klonopin 2 mg at bedtime, Lasix 10 mg daily, gabapentin 300 mg 3 times daily, Synthroid 0 .1 mg daily, Keppra 250 mg twice daily, Atarax 25 mg at bedtime scheduled, magnesium hydroxide 15 mL every 8 hours for constipation, Ensure High protein 237 mL twice daily, nystatin powder apply topical ly twice daily, Protonix 40 mg daily, potassium 20 mEq daily. She is continuing with tobramycin, dex amethasone eyedrops in each eye every 4 hours, Ultram 50 mg every 6 hours, and now trazodone added 25 mg at bedtime. Note, she had orthostatic hypertension and her antihypertensive and rate control med ications along with fluid management medications were held that is the amiodarone and Lasix and she h as better blood pressures and now they were restarted at half strength that is amiodarone 100 mg robert y instead of 200 and Lasix 10 mg daily instead of 20. Current Functional Status: Today, she ambulated 20 feet twice with maximum assistance using a lew g walker. She mobilized wheelchair 100 feet twice with verbal cues for maneuvering and occupational therapy, maximum assistance for bathing and lower body dressing due to fatigue. Bilateral upper extr emity strength was weak. There was impaired core strength. She required partial assistance for uppe r body dressing and donning and doffing undergarments. Progress Towards Rehabilitation Goals: Ms. España is making fair progress so far in rehabilitation with her goals and this is just hospital work day 2 in rehab. Her goals will be to become modified i ndependent with her transfers, upper and lower body dressing, ambulating at least household distances of 50 feet or more with modified independence, up and down 5 steps with modified independence, and h ave her make comorbid conditions managed appropriately and have her cognitively to be able to manage those as well. Assessment: Ms. España is an 82-year-old patient in the rehabilitation unit with debility. She has atrial fibrillation, coronary artery disease, constipation, chronic obstructive pulmonary disease, d yslipidemia, and rheumatoid arthritis. Plan: 1.Continue with physical, occupational therapy 3 hours a day, 5 of 7 days. 2.Continue Eliquis for DVT and stroke risk reduction. 3.Continue Lipitor for dyslipidemia. 4.Continue vitamin D for low vitamin D level. 5.Clonazepam for anxiety. 6.Gabapentin for neuropathic pain. 7.Keppra continued for seizures. 8.Tramadol for pain. 9.Trazodone for insomnia and a pain patch to the left shoulder. Comorbids That Are Continuing To Impact Rehabilitation Process: She is significantly debilitated and would require significant amount of physical therapy to improve her strength, coordination, and abil ity to endure to ambulate around household distances and to safely perform upper and lower body dress ing. She is motivated and does not have significant restrictions such as hypoxic issues related to h er COPD is she is oxygenating well. She did have some orthostatic blood pressure changes, but that h as been mitigated as she had her antihypertensive medications and Lasix decreased. Those medications will be adjusted further as appropriate. LB/MODL Voice ID: [id number] Report ID: [id number]
[2023-04-18] MEDS: TOBRADEX 0.3-0.1% OPTH OINTMENT EACH EYE SCH ×6 (03:06→23:35)
[2023-04-18 04:26] LABS: Absolute Lymphocytes (CBC) 2.1 K/uL (0.7-4.9); Hematocrit 25.6 % (36.0-45.0); Lymphocytes % 41.1 % (15.3-44.8); MCV 100.4 fL (80-100); MPV 6.9 fL (7.6-11.3); RBC Red Blood Cell Count 2.55 M/uL (3.86-4.86)
[2023-04-18 04:38] LABS: Albumin 2.7 g/dL (3.4-5.0); Magnesium 1.9 mg/dL (1.6-2.4); Potassium 4.7 mEq/L (3.5-5.1)
[2023-04-18] MEDS: PANTOPRAZOLE 40MG TABLET PO SCH (07:08)
[2023-04-18] MEDS: LEVOTHYROXINE SOD 0.1 MG TAB PO SCH (07:09)
[2023-04-18] MEDS: clonazePAM 1 MG TAB PO SCH (08:00)
[2023-04-18] MEDS: FUROSEMIDE 20 MG TABLET PO SCH (08:00)
[2023-04-18] MEDS: POTASSIUM CL SA 10 MEQ TAB PO SCH (08:00)
[2023-04-18] MEDS: [UNRECOGNIZED DRUG - MIXTURE] IH SCH ×2 (08:00→20:00)
[2023-04-18] MEDS: POLYVINYL ALCOHOL 1.4% 15 ML EACH EYE SCH (08:00)
[2023-04-18] MEDS: AMIODARONE HCL 200 MG TAB PO SCH (08:00)
[2023-04-18] MEDS: LIDOCAINE 4% PATCH TOP SCH (08:29)
[2023-04-18] MEDS: CRANBERRY FRUIT EXTRACT 200 MG CAP PO SCH ×2 (08:31→20:36)
[2023-04-18] MEDS: GABAPENTIN 300 MG CAP PO SCH ×3 (08:31→20:37)
[2023-04-18] MEDS: FE SULF/FA/VIT B COMP & C TAB PO SCH (08:31)
[2023-04-18] MEDS: VITAMIN D 1000 UNIT TAB PO SCH (08:32)
[2023-04-18] MEDS: FERROUS SULFATE 325 MG TAB PO SCH ×2 (08:32→20:37)
[2023-04-18] MEDS: APIXABAN 2.5 MG TABLET PO SCH ×2 (08:32→20:36)
[2023-04-18] MEDS: ASPIRIN EC 81 MG TAB PO SCH (08:33)
[2023-04-18] MEDS: levETIRAcetam 500 MG TAB PO SCH ×2 (08:34→20:37)
[2023-04-18] MEDS: NYSTATIN PWDR 100000 UNIT/GM TOP SCH ×2 (09:23→20:36)
[2023-04-18] MEDS: ENSURE HIGH PROTEIN 237 ML CAN PO SCH ×2 (09:23→21:16)
[2023-04-18] MEDS: ASCORBIC ACID 500 MG TABLET PO SCH (09:58)
[2023-04-18] MEDS ORDERED: TRAZODONE 50 MG TABLET PO PRN (14:44)
[2023-04-18] MEDS: TRAMADOL HCL 50 MG TAB PO PRN (16:46)
--- NOTE | 2023-04-18 19:52 | PN ---
Date of Progress Note: 04/18/2023 [facility] Progress Note Time Of Service: 1:30 p.m. Subjective: Ms. España is resting comfortably in bed. She is in no significant distress. She has no new complaints except the pain in her left shoulder. She is taking a little nap as well between t herapy sessions. Review of Systems: Denies any significant fevers, chills, nausea, vomiting, myalgias, arthralgias, rash, headache, or we ight change. Physical Examination: Vital Signs: Blood pressure 115/57, pulse 74, respiratory rate 16, temperature 97.9, and oxygen satu ration 99%. General: Ms. España is resting comfortably. Neurologic: She has no focal deficits. As noted, she has diffuse weakness of upper and lower extrem ities. Lungs: Good air movement. Abdomen: Soft. Extremities: No significant edema, cyanosis, or clubbing. Laboratory Studies: White blood cell count 5.1; hemoglobin 8.7, which has dropped from 9.8 yesterday ; and platelets 212. Chemistries: Sodium 136, potassium 4.7, chloride 108, carbon dioxide 25, BUN 5 3, creatinine 1.53, and prealbumin of 14. X-ray/imaging: None. Medications: Her medications were reviewed and her gabapentin was put at 300 mg twice daily. Lidoca ine patch applied. She is on trazodone for sleep and her other medications have been adjusted that i nclude antihypertensives as she has had some significant episode of low blood pressure. The amiodaro ne is cut back to 50 mg daily and to be held if systolic blood pressure is less than 115. She has al so been started on midodrine 5 mg twice daily for the orthostatic blood pressure drop. Her Lasix has been cut back to 10 mg daily and will be held again for systolic less than 115. In addition, 1 g of sodium has been added daily to the diet. Current Functional Status: Today she did bks-pg-[id number] transfers with minimum assistance for trunk, m kdzqqrx-lx-cwexywl assistance for supine to sit, and she did stand and pivot transfers with moderate- to-maximum assistance using a rolling walker. She ambulated 20 feet, 15 feet, and 10 feet with moder ate assistance and maximal assistance with a rolling walker. With her occupational therapy, she did sgq-cn-nluqo transfers twice, but was unable to complete it with the occupational therapist and her b lood pressures had dropped to 83/39 with head of bed 45 degrees raised, when she was supine it was 95 /46. She did have an abdominal binder placed, which is recommended in addition along with GLENDY hose a nd at that point, she did have blood pressure of 104/49. Progress Towards Rehabilitation Goals: Ms. España is making slow progress overall. She is somewhat limited by significant orthostatic changes that is being attempted by multiple things being done as noted. Blood pressure medications have been cut back significantly. Her diuretic medication is cut back. She has a pressor support medication with the midodrine and has 1 g sodium chloride added and she is now encouraged to have fluids. She also will have a chest x-ray to make sure there is no evid ence of a pneumonia or congestion in the lungs from congestive heart failure, as her diuretic has bee n cut back some. Assessment: Ms. España is an 82-year-old patient in the rehabilitation unit with debility. She has comorbids of atrial fibrillation, coronary artery disease, constipation, chronic obstructive pulmona ry disease, dyslipidemia, rheumatoid arthritis, and significant orthostatic hypotension. Plan: 1.Continue with physical and occupational therapy for 3 hours a day, 5 of 7 days. 2.Again abdominal binders and GLENDY hose when ambulating. 3.1 g sodium chloride daily. 4.Cut back her diuretic and amiodarone as directed above. 5.We will again continue with abdominal binder and GLENDY hose. 6.Continue Keppra for seizures. 7.Continue gabapentin for neuropathic pain. 8.Also continue tramadol and trazodone for insomnia. 9.Note, she has a pain patch in the left shoulder. Comorbids That Continue To Impact Rehabilitation: As noted, significant issue is her orthostatic hyp otension and has been addressed as noted above. LB/MODL Voice ID: [id number] Report ID: [id number]
[2023-04-18] MEDS: clonazePAM 1 MG TAB PO PRN (20:36)
[2023-04-18] MEDS: ATORVASTATIN 20 MG TAB PO SCH (20:37)
[2023-04-18] MEDS: MIDODRINE HCL 5 MG TABLET PO SCH (20:37)
[2023-04-18] MEDS: hydrOXYzine HCL 25 MG TAB PO SCH (20:38)
[2023-04-19] MEDS: hydrOXYzine HCL 25 MG TAB PO SCH ×3 (01:34→21:21)
[2023-04-19] MEDS: TOBRADEX 0.3-0.1% OPTH OINTMENT EACH EYE SCH ×5 (04:18→20:00)
[2023-04-19] MEDS: PANTOPRAZOLE 40MG TABLET PO SCH (06:32)
[2023-04-19] MEDS: LEVOTHYROXINE SOD 0.1 MG TAB PO SCH (06:32)
[2023-04-19] MEDS: FUROSEMIDE 20 MG TABLET PO SCH (08:00)
[2023-04-19] MEDS: AMIODARONE HCL 200 MG TAB PO SCH (08:00)
[2023-04-19] MEDS: POLYVINYL ALCOHOL 1.4% 15 ML EACH EYE SCH (08:00)
[2023-04-19] MEDS: POTASSIUM CL SA 10 MEQ TAB PO SCH (08:00)
[2023-04-19] MEDS: [UNRECOGNIZED DRUG - MIXTURE] IH SCH ×2 (08:00→20:00)
[2023-04-19] MEDS: LIDOCAINE 4% PATCH TOP SCH (08:25)
[2023-04-19] MEDS: APIXABAN 2.5 MG TABLET PO SCH ×2 (08:26→21:18)
[2023-04-19] MEDS: SODIUM CHLORIDE 1 GM TAB PO SCH (08:26)
[2023-04-19] MEDS: VITAMIN D 1000 UNIT TAB PO SCH (08:26)
[2023-04-19] MEDS: FERROUS SULFATE 325 MG TAB PO SCH ×2 (08:28→21:18)
[2023-04-19] MEDS: MIDODRINE HCL 5 MG TABLET PO SCH ×2 (08:28→21:20)
[2023-04-19] MEDS: ASPIRIN EC 81 MG TAB PO SCH (08:29)
[2023-04-19] MEDS: ASCORBIC ACID 500 MG TABLET PO SCH (08:29)
[2023-04-19] MEDS: levETIRAcetam 500 MG TAB PO SCH ×2 (08:30→21:19)
[2023-04-19] MEDS: FE SULF/FA/VIT B COMP & C TAB PO SCH (08:30)
[2023-04-19] MEDS: CRANBERRY FRUIT EXTRACT 200 MG CAP PO SCH ×2 (08:31→21:17)
[2023-04-19] MEDS: NYSTATIN PWDR 100000 UNIT/GM TOP SCH ×2 (08:31→21:19)
[2023-04-19] MEDS: GABAPENTIN 300 MG CAP PO SCH ×2 (08:33→21:20)
[2023-04-19] MEDS: ENSURE HIGH PROTEIN 237 ML CAN PO SCH ×3 (09:43→21:18)
--- NOTE | 2023-04-19 13:36 | P.RH.PN ---
Estimated Length of Stay: 15 Expected Discharge Date: 04/29/23 Discharge Disposition Plan: Home Family Support: Yes Detention Goal: Mobility, Transfers, Self Care Vital Signs: Last Vital Signs Temp 97.1 F 04/19/23 07:24 Pulse 73 04/19/23 07:24 Resp 17 04/19/23 07:24 BP 103/55 L 04/19/23 07:24 Pulse Ox 98 04/19/23 07:24 Laboratory: Laboratory Last Values WBC 5.10 thou/uL (4.3-10.9) 04/18/23 04:03 RBC 2.55 M/uL (3.86-4.86) L 04/18/23 04:03 Hgb 8.7 g/dL (12.0-15.0) L D 04/18/23 04:03 Hct 25.6 % (36.0-45.0) L 04/18/23 04:03 MCV 100.4 fL (80-100) H 04/18/23 04:03 MCH 33.9 pg (27.0-35.0) 04/18/23 04:03 MCHC 33.8 g/dL (32.0-36.0) 04/18/23 04:03 RDW 15.8 % (12.1-15.2) H 04/18/23 04:03 Plt Count 212 thou/uL (152-406) 04/18/23 04:03 MPV 6.9 fL (7.6-11.3) L 04/18/23 04:03 Neutrophils % 44.9 % (41.7-73.7) 04/18/23 04:03 Lymphocytes % 41.1 % (15.3-44.8) 04/18/23 04:03 Monocytes % 9.2 % (3.3-12.3) 04/18/23 04:03 Eosinophils % 4.1 % (0-4.4) 04/18/23 04:03 Basophils % 0.7 % (0-1.3) 04/18/23 04:03 Absolute Neutrophils 2.3 K/uL (1.8-8.0) 04/18/23 04:03 Absolute Lymphocytes 2.1 K/uL (0.7-4.9) 04/18/23 04:03 Absolute Monocytes 0.5 K/uL (0.1-1.3) 04/18/23 04:03 Absolute Eosinophils 0.2 K/uL (0-0.5) 04/18/23 04:03 Absolute Basophils 0.0 K/uL (0-0.5) 04/18/23 04:03 Sodium 136 mEq/L (136-145) 04/18/23 04:03 Potassium 4.7 mEq/L (3.5-5.1) D 04/18/23 04:03 Chloride 108 mEq/L (98-107) H 04/18/23 04:03 Carbon Dioxide 25 mEq/L (21-32) 04/18/23 04:03 Anion Gap 7.7 mEq/L (5.0-15.0) 04/18/23 04:03 BUN 53 mg/dL (7-18) H 04/18/23 04:03 Creatinine 1.53 mg/dL (0.55-1.02) H 04/18/23 04:03 Est GFR (CKD-EPI) 34 ml/min (=/>90) L 04/18/23 04:03 Glucose 86 mg/dL (74-106) 04/18/23 04:03 Calcium 8.3 mg/dL (8.5-10.1) L 04/18/23 04:03 Magnesium 1.9 mg/dL (1.6-2.4) 04/18/23 04:03 Albumin 2.7 g/dL (3.4-5.0) L 04/18/23 04:03 Prealbumin 14.0 mg/dL (20-40) L 04/18/23 04:03 Urine Color Light-yellow (Yellow) 04/17/23 07:25 Urine Clarity Extremely turbid (Clear) H 04/17/23 07:25 Urine pH 5.5 (5.0-7.0) 04/17/23 07:25 Ur Specific [place] 1.017 (1.005-1.030) 04/17/23 07:25 Glucose (UA)(Auto) Negative (Negative) 04/17/23 07:25 Urine Ketones Negative (Negative) 04/17/23 07:25 Urine Blood Trace (Negative) H 04/17/23 07:25 Urine Nitrite Negative (Negative) 04/17/23 07:25 Urine Bilirubin Negative (Negative) 04/17/23 07:25 Urine Urobilinogen Normal (Normal) 04/17/23 07:25 Ur Leukocyte Esterase 250 Brandyn/uL (Negative) H 04/17/23 07:25 Urine RBC <5 /HPF (None Seen) 04/17/23 07:25 Urine WBC 20-50 /HPF (<5) H 04/17/23 07:25 Ur Squamous Epith Cells <5 /HPF (None Seen) 04/17/23 07:25 Ur Transition Epith Cell <5 /HPF (None Seen) 04/17/23 07:25 Urine Bacteria None seen /HPF (<20) 04/17/23 07:25 Urine Mucus Slight /HPF (None Seen) 04/17/23 07:25 Urine Culture Reflexed Reflexed 04/17/23 07:25 Urine Total Protein Trace (Negative) H 04/17/23 07:25 Weight: 123 lb Wound Present: No Closed Surgical Incision Present: No Negative Pressure Wound Therapy Present: No Physician Update: Labs reviewed and mild mild malnutrition. Moderate anemia on hemocyte plus. Chronic renal failure. Will follow chest x-ray to rule out edema in the lungs. Making fair overall progress. Max assistance gait with walker. Min assistance with the wheelchair. She is still dehydrated and will get one liter of NS at 50 cc/hr. 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 Please see the Rehabilitation Signature page for all necessary signatures.
[2023-04-19] MEDS: TRAMADOL HCL 50 MG TAB PO PRN (13:53)
[2023-04-19] MEDS ORDERED: NA CHLORIDE 0.9% 1,000 ML IV SCH (15:00)
--- NOTE | 2023-04-19 15:13 | RAD REPORT ---
EXAM DESCRIPTION: Becca Single View04/19/2023 2:52 pm CLINICAL HISTORY: Cough COMPARISON: none FINDINGS: Mild right upper lobe opacities. Mild additional interstitial lung opacities appear chronic Heart is normal size. Pacemaker leads in place IMPRESSION: Mild right upper lobe opacities may be chronic or indicate an acute process such as pneu monia
[2023-04-19] MEDS: ATORVASTATIN 20 MG TAB PO SCH (21:18)
[2023-04-19] MEDS: clonazePAM 1 MG TAB PO PRN (21:46)
[2023-04-20] MEDS: TOBRADEX 0.3-0.1% OPTH OINTMENT EACH EYE SCH ×7 (03:55→23:27)
[2023-04-20 06:27] LABS: Absolute Lymphocytes (CBC) 2.1 K/uL (0.7-4.9); Hematocrit 26.1 % (36.0-45.0); Lymphocytes % 41.7 % (15.3-44.8); MCV 101.7 fL (80-100); MPV 6.8 fL (7.6-11.3); RBC Red Blood Cell Count 2.56 M/uL (3.86-4.86)
[2023-04-20] MEDS: NYSTATIN PWDR 100000 UNIT/GM TOP SCH ×2 (06:44→20:21)
[2023-04-20] MEDS: PANTOPRAZOLE 40MG TABLET PO SCH (06:44)
[2023-04-20] MEDS: LEVOTHYROXINE SOD 0.1 MG TAB PO SCH (06:45)
[2023-04-20 06:48] LABS: Albumin 2.7 g/dL (3.4-5.0); Potassium 5.2 mEq/L (3.5-5.1); Prealbumin 12.8 mg/dL (20-40)
[2023-04-20] MEDS: LIDOCAINE 4% PATCH TOP SCH (07:39)
[2023-04-20] MEDS: POLYVINYL ALCOHOL 1.4% 15 ML EACH EYE SCH (08:00)
[2023-04-20] MEDS: [UNRECOGNIZED DRUG - MIXTURE] IH SCH ×2 (08:00→20:00)
[2023-04-20] MEDS: AMIODARONE HCL 200 MG TAB PO SCH (08:00)
[2023-04-20] MEDS: POTASSIUM CL SA 10 MEQ TAB PO SCH (08:00)
[2023-04-20] MEDS: FUROSEMIDE 20 MG TABLET PO SCH (08:00)
[2023-04-20] MEDS: APIXABAN 2.5 MG TABLET PO SCH ×2 (09:00→20:19)
[2023-04-20] MEDS: SODIUM CHLORIDE 1 GM TAB PO SCH (09:50)
[2023-04-20] MEDS: FERROUS SULFATE 325 MG TAB PO SCH ×2 (09:50→20:20)
[2023-04-20] MEDS: GABAPENTIN 300 MG CAP PO SCH ×2 (09:50→20:19)
[2023-04-20] MEDS: CRANBERRY FRUIT EXTRACT 200 MG CAP PO SCH ×2 (09:50→20:20)
[2023-04-20] MEDS: VITAMIN D 1000 UNIT TAB PO SCH (09:50)
[2023-04-20] MEDS: levETIRAcetam 500 MG TAB PO SCH ×2 (09:50→20:19)
[2023-04-20] MEDS: ASPIRIN EC 81 MG TAB PO SCH (09:50)
[2023-04-20] MEDS: FE SULF/FA/VIT B COMP & C TAB PO SCH (09:50)
[2023-04-20] MEDS: MIDODRINE HCL 5 MG TABLET PO SCH ×2 (09:50→20:20)
[2023-04-20] MEDS: ASCORBIC ACID 500 MG TABLET PO SCH (09:51)
[2023-04-20] MEDS: ENSURE HIGH PROTEIN 237 ML CAN PO SCH ×2 (10:01→20:00)
[2023-04-20] MEDS ORDERED: BISACODYL 10 MG RECTAL SUPP PR PRN (12:09)
[2023-04-20] MEDS ORDERED: NA CHLORIDE 0.9% 500 ML IV ONE (19:48)
[2023-04-20] MEDS ORDERED: NA CHLORIDE 0.9% 1,000 ML IV SCH (20:00)
[2023-04-20] MEDS ORDERED: NA CHLORIDE 0.9% 1,000 ML ONE ×2 (20:06→20:12)
[2023-04-20] MEDS ORDERED: ACETAMINOPHEN 500 MG TAB PO PRN (20:07)
[2023-04-20] MEDS: hydrOXYzine HCL 25 MG TAB PO SCH (20:20)
[2023-04-20] MEDS: ATORVASTATIN 20 MG TAB PO SCH (20:20)
[2023-04-21] MEDS: TOBRADEX 0.3-0.1% OPTH OINTMENT EACH EYE SCH ×6 (04:00→23:59)
[2023-04-21] MEDS: LEVOTHYROXINE SOD 0.1 MG TAB PO SCH (06:33)
[2023-04-21] MEDS: MIDODRINE HCL 5 MG TABLET PO SCH ×2 (07:19→19:57)
[2023-04-21] MEDS: PANTOPRAZOLE 40MG TABLET PO SCH (07:19)
[2023-04-21] MEDS: NYSTATIN PWDR 100000 UNIT/GM TOP SCH ×2 (07:19→19:56)
[2023-04-21] MEDS: LIDOCAINE 4% PATCH TOP SCH (07:19)
[2023-04-21] MEDS: SODIUM CHLORIDE 1 GM TAB PO SCH (07:20)
[2023-04-21] MEDS: CRANBERRY FRUIT EXTRACT 200 MG CAP PO SCH ×2 (07:20→19:57)
[2023-04-21] MEDS: ASPIRIN EC 81 MG TAB PO SCH (07:20)
[2023-04-21] MEDS: VITAMIN D 1000 UNIT TAB PO SCH (07:20)
[2023-04-21] MEDS: ENSURE HIGH PROTEIN 237 ML CAN PO SCH ×2 (07:20→19:59)
[2023-04-21] MEDS: FE SULF/FA/VIT B COMP & C TAB PO SCH (07:20)
[2023-04-21] MEDS: FERROUS SULFATE 325 MG TAB PO SCH ×2 (07:21→19:57)
[2023-04-21] MEDS: levETIRAcetam 500 MG TAB PO SCH ×2 (07:21→19:57)
[2023-04-21] MEDS: APIXABAN 2.5 MG TABLET PO SCH ×2 (07:21→19:57)
[2023-04-21] MEDS: ASCORBIC ACID 500 MG TABLET PO SCH (07:21)
[2023-04-21] MEDS: GABAPENTIN 300 MG CAP PO SCH ×2 (07:21→19:57)
[2023-04-21] MEDS: TRAMADOL HCL 50 MG TAB PO PRN (07:29)
[2023-04-21] MEDS: POLYVINYL ALCOHOL 1.4% 15 ML EACH EYE SCH (08:00)
[2023-04-21] MEDS: [UNRECOGNIZED DRUG - MIXTURE] IH SCH ×2 (08:00→19:58)
[2023-04-21] MEDS: AMIODARONE HCL 200 MG TAB PO SCH (08:00)
[2023-04-21] MEDS: POTASSIUM CL SA 10 MEQ TAB PO SCH (08:00)
[2023-04-21] MEDS: clonazePAM 1 MG TAB PO PRN ×2 (13:45→21:19)
[2023-04-21] MEDS: hydrOXYzine HCL 25 MG TAB PO SCH (19:58)
[2023-04-21] MEDS: ATORVASTATIN 20 MG TAB PO SCH (19:58)
[2023-04-22] MEDS: TOBRADEX 0.3-0.1% OPTH OINTMENT EACH EYE SCH ×5 (03:54→19:40)
[2023-04-22 04:25] LABS: Absolute Lymphocytes (CBC) 2.3 K/uL (0.7-4.9); Hematocrit 24.7 % (36.0-45.0); Lymphocytes % 45.7 % (15.3-44.8); MCV 100.9 fL (80-100); MPV 6.7 fL (7.6-11.3); RBC Red Blood Cell Count 2.45 M/uL (3.86-4.86)
[2023-04-22 04:35] LABS: Potassium 5.3 mEq/L (3.5-5.1)
[2023-04-22] MEDS: LEVOTHYROXINE SOD 0.1 MG TAB PO SCH (05:25)
[2023-04-22] MEDS: PANTOPRAZOLE 40MG TABLET PO SCH (06:57)
[2023-04-22] MEDS: MIDODRINE HCL 5 MG TABLET PO SCH ×2 (06:57→19:38)
[2023-04-22] MEDS: NYSTATIN PWDR 100000 UNIT/GM TOP SCH ×2 (07:05→19:39)
[2023-04-22] MEDS: ASCORBIC ACID 500 MG TABLET PO SCH (07:05)
[2023-04-22] MEDS: APIXABAN 2.5 MG TABLET PO SCH ×2 (07:06→19:38)
[2023-04-22] MEDS: ASPIRIN EC 81 MG TAB PO SCH (07:06)
[2023-04-22] MEDS: ENSURE HIGH PROTEIN 237 ML CAN PO SCH ×3 (07:06→19:55)
[2023-04-22] MEDS: VITAMIN D 1000 UNIT TAB PO SCH (07:06)
[2023-04-22] MEDS: CRANBERRY FRUIT EXTRACT 200 MG CAP PO SCH ×2 (07:06→19:37)
[2023-04-22] MEDS: GABAPENTIN 300 MG CAP PO SCH ×2 (07:06→19:39)
[2023-04-22] MEDS: levETIRAcetam 500 MG TAB PO SCH ×2 (07:06→19:37)
[2023-04-22] MEDS: FE SULF/FA/VIT B COMP & C TAB PO SCH (07:07)
[2023-04-22] MEDS: FERROUS SULFATE 325 MG TAB PO SCH ×2 (07:07→19:39)
[2023-04-22] MEDS: TRAMADOL HCL 50 MG TAB PO PRN (07:07)
[2023-04-22] MEDS: SODIUM CHLORIDE 1 GM TAB PO SCH (07:11)
[2023-04-22] MEDS: POTASSIUM CL SA 10 MEQ TAB PO SCH (07:12)
[2023-04-22] MEDS: [UNRECOGNIZED DRUG - MIXTURE] IH SCH ×2 (07:37→19:39)
[2023-04-22] MEDS: AMIODARONE HCL 200 MG TAB PO SCH (07:37)
[2023-04-22] MEDS: POLYVINYL ALCOHOL 1.4% 15 ML EACH EYE SCH (07:38)
[2023-04-22] MEDS: LIDOCAINE 4% PATCH TOP SCH (10:20)
[2023-04-22] MEDS: clonazePAM 1 MG TAB PO PRN ×2 (16:21→21:20)
[2023-04-22] MEDS: DOCUSATE NA/SENNA CONC 1 TAB PO PRN ×2 (19:38→21:22)
[2023-04-22] MEDS: ATORVASTATIN 20 MG TAB PO SCH (19:38)
[2023-04-22] MEDS: hydrOXYzine HCL 25 MG TAB PO SCH (19:41)
[2023-04-23] MEDS: TOBRADEX 0.3-0.1% OPTH OINTMENT EACH EYE SCH ×6 (04:00→20:00)
[2023-04-23 04:45] LABS: Specific Gravity 1.006 (1.005-1.030); Urine Bacteria <20 /HPF (<20); Urine Bilirubin NEGATIVE (Negative); Urine Blood Negative (Negative); Urine Clarity Clear (Clear); Urine Color Colorless (Yellow); Urine Glucose NEGATIVE (Negative); Urine Mucus Slight /HPF (None Seen); Urine Protein NEGATIVE (Negative); Urine RBC None Seen /HPF (None Seen); Urine Urobilinogen Normal (Normal)
[2023-04-23] MEDS: LEVOTHYROXINE SOD 0.1 MG TAB PO SCH (06:27)
[2023-04-23] MEDS: PANTOPRAZOLE 40MG TABLET PO SCH (06:55)
[2023-04-23] MEDS: MIDODRINE HCL 5 MG TABLET PO SCH ×2 (06:56→20:12)
[2023-04-23] MEDS: TRAMADOL HCL 50 MG TAB PO PRN ×2 (06:56→13:04)
[2023-04-23] MEDS: VITAMIN D 1000 UNIT TAB PO SCH (07:27)
[2023-04-23] MEDS: NYSTATIN PWDR 100000 UNIT/GM TOP SCH ×2 (07:27→20:12)
[2023-04-23] MEDS: LIDOCAINE 4% PATCH TOP SCH (07:27)
[2023-04-23] MEDS: SODIUM CHLORIDE 1 GM TAB PO SCH (07:28)
[2023-04-23] MEDS: FE SULF/FA/VIT B COMP & C TAB PO SCH (07:28)
[2023-04-23] MEDS: APIXABAN 2.5 MG TABLET PO SCH ×2 (07:28→20:10)
[2023-04-23] MEDS: GABAPENTIN 300 MG CAP PO SCH ×2 (07:28→20:12)
[2023-04-23] MEDS: ASCORBIC ACID 500 MG TABLET PO SCH (07:28)
[2023-04-23] MEDS: FERROUS SULFATE 325 MG TAB PO SCH ×2 (07:28→20:11)
[2023-04-23] MEDS: levETIRAcetam 500 MG TAB PO SCH ×2 (07:28→20:11)
[2023-04-23] MEDS: ASPIRIN EC 81 MG TAB PO SCH (07:28)
[2023-04-23] MEDS: CRANBERRY FRUIT EXTRACT 200 MG CAP PO SCH ×2 (07:28→20:10)
[2023-04-23] MEDS: [UNRECOGNIZED DRUG - MIXTURE] IH SCH ×2 (07:52→20:00)
[2023-04-23] MEDS: ENSURE HIGH PROTEIN 237 ML CAN PO SCH ×2 (07:53→20:11)
[2023-04-23] MEDS: AMIODARONE HCL 200 MG TAB PO SCH (07:53)
[2023-04-23] MEDS: POTASSIUM CL SA 10 MEQ TAB PO SCH (07:54)
[2023-04-23] MEDS: POLYVINYL ALCOHOL 1.4% 15 ML EACH EYE SCH (07:54)
[2023-04-23] MEDS: hydrOXYzine HCL 25 MG TAB PO SCH (20:12)
[2023-04-23] MEDS: ATORVASTATIN 20 MG TAB PO SCH (20:13)
[2023-04-23] MEDS: clonazePAM 1 MG TAB PO PRN (20:19)
--- NOTE | 2023-04-23 22:13 | PN ---
Date of Progress Note: 04/23/2023 Time Of Service: 1:15 p.m. Subjective: Ms. España is resting in bed. She is pleased with her therapy. She has no new complai nts. Review of Systems: No fevers, chills, nausea, or vomiting. No significant myalgias, arthralgias, or rash. No other iss ues such as psychiatric complaints. Physical Examination: Vital Signs: Blood pressure 104/55, pulse 63, respiratory rate 16, temperature 97.6, and oxygen satu ration 98%. General: Ms. España is resting comfortably. She is in no significant distress. HEENT: She is normocephalic, atraumatic. Sclerae anicteric. Oropharynx pink and moist. Neck: Supple. Chest: Clear. Heart: Regular. Extremities: No significant clubbing, cyanosis, or edema. Laboratory Studies: White blood cell count 5.1; hemoglobin 8.2, which has shown a decline from 9.8 o n the 7th, but today is the 12th, her hematocrit and parallels also down to 24.7 from 29; and platele ts 220. Sodium 138, potassium 5.0, chloride 106, carbon dioxide 28, BUN 43, and creatinine 1.56, whi ch is her baseline for renal insufficiency. Calcium 8.2. Glucose 78. X-ray/imaging: Chest x-ray from the showed mild right upper lobe opacities, which may be chronic or indicate an acute process such as pneumonia. The patient is on incentive spirometry. She does h ave bilateral AFOs because of significant weakness. Medications: Ventolin inhaler 2 puffs every 4 hours, amiodarone 50 mg daily, Eliquis 2.5 mg twice da jemal, Artificial Tears 1 drop in each eye daily, vitamin C 500 mg daily, aspirin 81 mg daily, Lipitor 20 mg at bedtime, vitamin D 2000 units daily, clonazepam 0.1 mg at night for anxiety, gabapentin 300 mg twice daily, Keppra 250 mg twice daily, levothyroxine 0.1 mg daily, lidocaine patch applied topica lly daily, milk of magnesia 15 mL every 8 hours as needed for constipation, midodrine 5 mg twice robert y, Hemocyte Plus 1 tablet daily, Ensure Enlive 237 mL twice daily, Protonix 40 mg daily, potassium 10 mEq daily, Senokot-S 2 at bedtime, tramadol 50 mg every 6 hours, and Desyrel 25 mg at bedtime. Current Functional Status: Today she ambulated 15 feet, 25 feet 3 times and 30 feet twice with minim al assistance using a rolling walker with her bilateral AFOs. Emphasis was placed on the posture and clearance. [id number]-md-ajydk transfers done with maximum assistance for anterior weight shifting using t he rolling walker. With her occupational therapy, the patient was incontinent and wanted to be able to control her bladder function and she is actually working hard towards that. She does have easy fa tigue with activities of daily living with her transfers and her exercises. She did work with speech pathology today. She had a bedside swallow eval, which showed impaired lingual range of motion, imp aired lingual strength, but palate elevation and vocal throat clearing were intact. She does have de ntal implants in the uppers and dentures in the lower teeth. She was put on a soft mechanical diet w ith thin liquids. Avoid straws. Small bites and sips. Alternate solids and liquids. Remain uprigh t after meals. Progress Towards Rehabilitation Goals: Ms. España is making slow to fair progress overall, given th e bilateral lower extremity weakness and the need for the AFOs to help her ambulate without footdrop. She is still significantly debilitated and fatigues easily. She is, however, ambulating greater di stances than when she came in a week ago. Assessment: Ms. España is an 82-year-old patient in the rehabilitation unit with debility. She has atrial fibrillation, coronary artery disease, constipation, chronic obstructive pulmonary disease, d yslipidemia, rheumatoid arthritis, orthostatic hypotension, which has still been ongoing and signific ant distal lower extremity weakness requiring bilateral AFOs. Plan: 1.Continue with physical, occupational, and speech therapy 3.5 hours, 5 of 7 days. 2.Abdominal binder and GLENDY hose when ambulating and out of bed. 3.1 g sodium chloride daily. 4.Her diuretics have been cut back as well as the amiodarone that is still on board for rate control . 5.She has midodrine to support the pressure. 6.She still has gabapentin for neuropathic pain. 7.Again, Keppra for seizures. 8.Tramadol for pain and trazodone for insomnia. 9.In addition, she has a pain patch on the left shoulder. Comorbids That Continue To Impact Her Rehabilitation Progress: Her orthostatic hypotension is improv ing, but still is a significant impact factor. Her bilateral lower extremity weakness requiring AFOs is in addition a factor that limits her progress and thriving. However, despite that she is working very hard. LB/MODL Voice ID: [id number] Report ID: [id number]
[2023-04-24] MEDS: TOBRADEX 0.3-0.1% OPTH OINTMENT EACH EYE SCH ×6 (04:00→20:00)
[2023-04-24] MEDS: PANTOPRAZOLE 40MG TABLET PO SCH (06:35)
[2023-04-24] MEDS: LEVOTHYROXINE SOD 0.1 MG TAB PO SCH (06:35)
[2023-04-24 07:18] LABS: Potassium 4.8 mEq/L (3.5-5.1)
[2023-04-24] MEDS: POLYVINYL ALCOHOL 1.4% 15 ML EACH EYE SCH (08:00)
[2023-04-24] MEDS: AMIODARONE HCL 200 MG TAB PO SCH ×2 (08:00→20:07)
[2023-04-24] MEDS: [UNRECOGNIZED DRUG - MIXTURE] IH SCH ×2 (08:00→20:00)
[2023-04-24] MEDS: ENSURE HIGH PROTEIN 237 ML CAN PO SCH ×2 (08:00→20:00)
[2023-04-24] MEDS: FE SULF/FA/VIT B COMP & C TAB PO SCH (08:19)
[2023-04-24] MEDS: CRANBERRY FRUIT EXTRACT 200 MG CAP PO SCH ×2 (08:19→20:08)
[2023-04-24] MEDS: APIXABAN 2.5 MG TABLET PO SCH ×2 (08:20→20:08)
[2023-04-24] MEDS: FERROUS SULFATE 325 MG TAB PO SCH ×2 (08:20→20:08)
[2023-04-24] MEDS: GABAPENTIN 300 MG CAP PO SCH ×2 (08:20→20:08)
[2023-04-24] MEDS: SODIUM CHLORIDE 1 GM TAB PO SCH (08:20)
[2023-04-24] MEDS: ASPIRIN EC 81 MG TAB PO SCH (08:20)
[2023-04-24] MEDS: levETIRAcetam 500 MG TAB PO SCH ×2 (08:21→20:06)
[2023-04-24] MEDS: NYSTATIN PWDR 100000 UNIT/GM TOP SCH ×2 (08:24→20:06)
[2023-04-24] MEDS: MIDODRINE HCL 5 MG TABLET PO SCH ×2 (08:26→20:08)
[2023-04-24] MEDS: VITAMIN D 1000 UNIT TAB PO SCH (08:29)
[2023-04-24] MEDS: LIDOCAINE 4% PATCH TOP SCH (08:30)
[2023-04-24] MEDS: ASCORBIC ACID 500 MG TABLET PO SCH (08:30)
[2023-04-24] MEDS: ATORVASTATIN 20 MG TAB PO SCH (20:08)
[2023-04-24] MEDS: hydrOXYzine HCL 25 MG TAB PO SCH (20:09)
--- NOTE | 2023-04-25 00:11 | PN ---
Date of Progress Note: 04/24/2023 [facility] Progress Note Visit Time Of Service: 1:30 p.m. Subjective: Ms. España is resting in bed. She is happy with her therapy. She has no new complaint s. She did ambulate more today than yesterday and says she is a little worn out with therapy. Review of Systems: No fevers, chills, nausea, or vomiting. No significant myalgias, arthralgias, rash, headache, weight change, or psychiatric complaints. Physical Examination: Vital Signs: Blood pressure ranged from 91 to 104 systolic and diastolic 55 to 58, pulse ranged from 65 to 80, temperature 97.4, respiratory rate 16, and oxygen saturation 98% on room air. Weight 131 pounds, height 5 feet 5 inches. General: Ms. España is resting in bed in between therapy sessions. Trying to get a nap before ther apy starts again. HEENT: Normocephalic, atraumatic. Sclerae are anicteric. Oropharynx pink and moist. Neck: Supple. Chest: Clear. Heart: Regular. Extremities: She has thin extremities. She has AFOs for ambulating because of bilateral footdrop. Neurologic: Again, diffuse weakness in the lower extremities more than upper extremities, but that i s improving. Laboratory Studies: Today electrolytes show creatinine of 1.41, which improved from 1.53 yesterday. Her calcium is 8.4, improved slightly from 8.0 on the 12th and today is the 14th. X-ray/imaging: No new x-rays or imaging. Medications: Her medications have been reviewed and remain unchanged. Current Functional Status: Today she ambulated 65 feet twice and 55 feet twice with contact guard as sistance using a rolling walker and she used her bilateral ankle-foot orthoses. Multiple sit-to-anahy d transfers done with maximum assistance for anterior weight shifting using the rolling walker. For speech, she did have education material provided regarding mechanics of swallowing, that level was re viewed. She was shown and was able to tolerate soft and bite size diet. Progress Towards Rehabilitation Goals: Ms. España is making improved progress towards her goals of upper and lower body dressing independently, donning and doffing AFO and actually shoes with modified independence, performing activities of daily living with modified independence, and ambulating 250 f eet with modified independence. The plan is to at least go up a few steps, perhaps 5 with modified i ndependence. In addition, to be able to chew and swallow and do so with modified independence. Assessment: Ms. España is an 82-year-old patient in the rehabilitation unit with debility who is [facility] fair to improved progress overall with physical, occupational, and speech therapy. Her comorbid s are atrial fibrillation, coronary artery disease, constipation, chronic obstructive pulmonary disea se, dyslipidemia, rheumatoid arthritis, orthostatic hypotension, and lower extremity weakness requiri ng bilateral ankle-foot orthoses. Plan: 1.Continue with physical, occupational, and speech therapy for 3.5 hours, 5 of 7 days. 2.Continue with GLENDY hose and abdominal binders when out of bed. 3.1 g of sodium daily. 4.Her medications including amiodarone will be used at lowest dose. Her diuretics have been cut manan k. 5.She has midodrine 5 mg twice daily to support her blood pressure. 6.Gabapentin for neuropathic pain. 7.Continue Keppra for seizures. 8.Tramadol for pain. 9.Trazodone for insomnia and she has a pain patch on the left shoulder. Comorbids That Continue To Impact Her Rehabilitation Process: She has as noted above, orthostatic hy potension with significantly low blood pressures as she goes from sit to stand position. Those are s omewhat mitigated by abdominal binder and GLENDY hose in lower extremities along with pressor support. She has good motivation and is overcoming her barriers very well. LB/MODL Voice ID: [id number] Report ID: [id number]
[2023-04-25] MEDS: TOBRADEX 0.3-0.1% OPTH OINTMENT EACH EYE SCH ×6 (03:50→20:00)
[2023-04-25] MEDS: TRAMADOL HCL 50 MG TAB PO PRN ×3 (04:14→20:05)
[2023-04-25 04:36] LABS: Absolute Lymphocytes (CBC) 1.7 K/uL (0.7-4.9); Hematocrit 25.4 % (36.0-45.0); MCV 101.7 fL (80-100)
[2023-04-25 04:42] LABS: Albumin 2.6 g/dL (3.4-5.0); Magnesium 2.1 mg/dL (1.6-2.4); Potassium 5.2 mEq/L (3.5-5.1); Prealbumin 13.6 mg/dL (20-40)
[2023-04-25] MEDS: LEVOTHYROXINE SOD 0.1 MG TAB PO SCH (05:09)
[2023-04-25] MEDS: PANTOPRAZOLE 40MG TABLET PO SCH (06:42)
[2023-04-25] MEDS: POLYVINYL ALCOHOL 1.4% 15 ML EACH EYE SCH (08:00)
[2023-04-25] MEDS: ENSURE HIGH PROTEIN 237 ML CAN PO SCH ×2 (08:00→20:00)
[2023-04-25] MEDS: [UNRECOGNIZED DRUG - MIXTURE] IH SCH ×2 (08:00→20:00)
[2023-04-25] MEDS: NYSTATIN PWDR 100000 UNIT/GM TOP SCH ×2 (08:26→20:05)
[2023-04-25] MEDS: LIDOCAINE 4% PATCH TOP SCH (08:26)
[2023-04-25] MEDS: CRANBERRY FRUIT EXTRACT 200 MG CAP PO SCH ×2 (08:26→20:06)
[2023-04-25] MEDS: FERROUS SULFATE 325 MG TAB PO SCH ×2 (08:26→20:05)
[2023-04-25] MEDS: FE SULF/FA/VIT B COMP & C TAB PO SCH (08:27)
[2023-04-25] MEDS: APIXABAN 2.5 MG TABLET PO SCH ×2 (08:27→20:05)
[2023-04-25] MEDS: levETIRAcetam 500 MG TAB PO SCH ×2 (08:27→20:05)
[2023-04-25] MEDS: GABAPENTIN 300 MG CAP PO SCH ×2 (08:27→20:05)
[2023-04-25] MEDS: MIDODRINE HCL 5 MG TABLET PO SCH ×2 (08:28→20:05)
[2023-04-25] MEDS: ASCORBIC ACID 500 MG TABLET PO SCH (08:28)
[2023-04-25] MEDS: ASPIRIN EC 81 MG TAB PO SCH (08:28)
[2023-04-25] MEDS: VITAMIN D 1000 UNIT TAB PO SCH (08:28)
[2023-04-25] MEDS: SODIUM CHLORIDE 1 GM TAB PO SCH (08:28)
--- NOTE | 2023-04-25 19:20 | PN ---
Date of Progress Note: 04/25/2023 Time Of Service: 1:30 a.m. Subjective: Ms. España is resting in bed in between therapy sessions and has no new complaints. Lily aquino is happy with her therapy, although she does feel worn out about the session earlier in the morning . Review of Systems: Mild arthralgias in the lower extremities, but no fevers, chills, nausea, vomiting, headache. No psy chiatric complaints. Physical Examination: Vital Signs: Blood pressure 129/59, pulse 69, respiratory rate 16, temperature 97.8. General: Ms. España is again resting in bed. She is in no acute distress. HEENT: She is normocephalic, atraumatic. Sclerae anicteric. Oropharynx pink and moist. Neck: Supple. Chest: Clear. Extremities: She does have significant atrophy of the lower extremities with a footdrop and has AFOs . Laboratory Studies: White blood cell count 4.6, hemoglobin 8.5, and platelets 230. Sodium 138, pota ssium 5.3, chloride 108, carbon dioxide 27, BUN 39, creatinine 1.27, prealbumin 13.6. X-ray/imaging: No new x-rays or imaging. Medications: Medications have been reviewed and remained unchanged. She has had decreases in her an tihypertensive medication and her diuretics and she is on midodrine for pressure support. Current Functional Status: Ms. España is able to ambulate 35 feet twice, 15 feet once, 25 feet twic e with contact guard assistance using a rolling walker. She did have emphasized upright posturing wi th increased step length. She does have significant fatigue. Her sit to stand transfers done with m oderate to maximum assistance. With her occupational therapy, [id number] transfers and shower done with max assist. She does fatigue with her ADLs, but she still continues improve. Upper body dress ing to socket puller shirt done with minimum assistance. Lower body dressing moderate assistance. Progress Towards Rehabilitation Goals: Ms. España is making slow progress with physical and occupat ional therapy, but is improving gradually. With her speech therapy, she is actually doing a little b gio. She is taking small bites and sips on alternating liquids and solids and avoiding talking whi le eating and performing double swallows, which is improving her ability to get her food down. Assessment: Ms. España is an 82-year-old patient in the rehabilitation unit with debility and was m aking slow to fair overall progress with physical, occupational, and speech therapy. She has atrial fibrillation, coronary artery disease, constipation, chronic obstructive pulmonary disease, dyslipide vicki, orthostatic hypotension, rheumatoid arthritis, lower extremity weakness, bilateral ankle-foot or thoses. Plan: 1.Continue physical, occupational, and speech therapy 3.5 hours, 5 of 7 days. 2.Continue addressing orthostatic hypotension with GLENDY hose, abdominal binders, 1 g sodium, decreasi ng diuretics and antihypertensives, and using a pressor. 3.Continue Keppra for seizures. 4.Continue gabapentin for neuropathic pain along with tramadol. 5.Continue with trazodone for insomnia. Comorbids That Continued To Impact Rehabilitation Process: Orthostatic hypotension is improving sign ificantly and is much less of a factor and she is doing well with mitigating factors as noted above. LB/MODL Voice ID: [id number] Report ID: [id number]
[2023-04-25] MEDS: ATORVASTATIN 20 MG TAB PO SCH (20:05)
[2023-04-25] MEDS: AMIODARONE HCL 200 MG TAB PO SCH (20:06)
[2023-04-25] MEDS: hydrOXYzine HCL 25 MG TAB PO SCH (20:06)
[2023-04-25] MEDS: clonazePAM 1 MG TAB PO PRN (21:12)
[2023-04-26] MEDS: TOBRADEX 0.3-0.1% OPTH OINTMENT EACH EYE SCH ×6 (04:00→20:00)
[2023-04-26] MEDS: LEVOTHYROXINE SOD 0.1 MG TAB PO SCH (05:05)
[2023-04-26] MEDS: PANTOPRAZOLE 40MG TABLET PO SCH (06:33)
[2023-04-26] MEDS: [UNRECOGNIZED DRUG - MIXTURE] IH SCH ×2 (08:00→20:00)
[2023-04-26] MEDS: POLYVINYL ALCOHOL 1.4% 15 ML EACH EYE SCH (08:00)
[2023-04-26] MEDS: ENSURE HIGH PROTEIN 237 ML CAN PO SCH ×2 (08:00→20:00)
[2023-04-26] MEDS: LIDOCAINE 4% PATCH TOP SCH (08:25)
[2023-04-26] MEDS: VITAMIN D 1000 UNIT TAB PO SCH (08:26)
[2023-04-26] MEDS: FE SULF/FA/VIT B COMP & C TAB PO SCH (08:26)
[2023-04-26] MEDS: NYSTATIN PWDR 100000 UNIT/GM TOP SCH ×2 (08:26→21:06)
[2023-04-26] MEDS: levETIRAcetam 500 MG TAB PO SCH ×2 (08:27→21:05)
[2023-04-26] MEDS: FERROUS SULFATE 325 MG TAB PO SCH ×2 (08:27→21:05)
[2023-04-26] MEDS: GABAPENTIN 300 MG CAP PO SCH ×2 (08:27→20:00)
[2023-04-26] MEDS: CRANBERRY FRUIT EXTRACT 200 MG CAP PO SCH ×2 (08:28→21:04)
[2023-04-26] MEDS: ASPIRIN EC 81 MG TAB PO SCH (08:28)
[2023-04-26] MEDS: ASCORBIC ACID 500 MG TABLET PO SCH (08:28)
[2023-04-26] MEDS: APIXABAN 2.5 MG TABLET PO SCH ×2 (08:28→21:05)
[2023-04-26] MEDS: SODIUM CHLORIDE 1 GM TAB PO SCH (08:28)
[2023-04-26] MEDS: MIDODRINE HCL 5 MG TABLET PO SCH ×2 (09:58→21:09)
--- NOTE | 2023-04-26 14:01 | P.RH.PN ---
Estimated Length of Stay: 15 Expected Discharge Date: 04/30/23 Discharge Disposition Plan: Home Family Support: Yes [facility] Goal: Mobility, Transfers, Self Care Vital Signs: Last Vital Signs Temp 97.0 F 04/26/23 07:25 Pulse 77 04/26/23 07:25 Resp 16 04/26/23 07:25 BP 98/54 L 04/26/23 07:25 Pulse Ox 99 04/26/23 07:25 Laboratory: Laboratory Last Values WBC 4.60 thou/uL (4.3-10.9) 04/25/23 04:03 RBC 2.50 M/uL (3.86-4.86) L 04/25/23 04:03 Hgb 8.5 g/dL (12.0-15.0) L 04/25/23 04:03 Hct 25.4 % (36.0-45.0) L 04/25/23 04:03 MCV 101.7 fL (80-100) H 04/25/23 04:03 MCH 34.1 pg (27.0-35.0) 04/25/23 04:03 MCHC 33.5 g/dL (32.0-36.0) 04/25/23 04:03 RDW 16.3 % (12.1-15.2) H 04/25/23 04:03 Plt Count 230 thou/uL (152-406) 04/25/23 04:03 MPV 7.0 fL (7.6-11.3) L 04/25/23 04:03 Neutrophils % 45.9 % (41.7-73.7) 04/25/23 04:03 Lymphocytes % 37.0 % (15.3-44.8) 04/25/23 04:03 Monocytes % 12.6 % (3.3-12.3) H 04/25/23 04:03 Eosinophils % 3.9 % (0-4.4) 04/25/23 04:03 Basophils % 0.6 % (0-1.3) 04/25/23 04:03 Absolute Neutrophils 2.1 K/uL (1.8-8.0) 04/25/23 04:03 Absolute Lymphocytes 1.7 K/uL (0.7-4.9) 04/25/23 04:03 Absolute Monocytes 0.6 K/uL (0.1-1.3) 04/25/23 04:03 Absolute Eosinophils 0.2 K/uL (0-0.5) 04/25/23 04:03 Absolute Basophils 0.0 K/uL (0-0.5) 04/25/23 04:03 Sodium 138 mEq/L (136-145) 04/25/23 04:03 Potassium 5.2 mEq/L (3.5-5.1) H 04/25/23 04:03 Chloride 108 mEq/L (98-107) H 04/25/23 04:03 Carbon Dioxide 27 mEq/L (21-32) 04/25/23 04:03 Anion Gap 8.2 mEq/L (5.0-15.0) 04/25/23 04:03 BUN 39 mg/dL (7-18) H 04/25/23 04:03 Creatinine 1.27 mg/dL (0.55-1.02) H 04/25/23 04:03 Est GFR (CKD-EPI) 42 ml/min (=/>90) L 04/25/23 04:03 Glucose 82 mg/dL (74-106) 04/25/23 04:03 Calcium 8.5 mg/dL (8.5-10.1) 04/25/23 04:03 Magnesium 2.1 mg/dL (1.6-2.4) 04/25/23 04:03 Albumin 2.6 g/dL (3.4-5.0) L 04/25/23 04:03 Prealbumin 13.6 mg/dL (20-40) L 04/25/23 04:03 Urine Color Colorless (Yellow) 04/23/23 03:11 Urine Clarity Clear (Clear) 04/23/23 03:11 Urine pH 5.0 (5.0-7.0) 04/23/23 03:11 Ur Specific [place] 1.006 (1.005-1.030) 04/23/23 03:11 Glucose (UA)(Auto) Negative (Negative) 04/23/23 03:11 Urine Ketones Negative (Negative) 04/23/23 03:11 Urine Blood Negative (Negative) 04/23/23 03:11 Urine Nitrite Negative (Negative) 04/23/23 03:11 Urine Bilirubin Negative (Negative) 04/23/23 03:11 Urine Urobilinogen Normal (Normal) 04/23/23 03:11 Ur Leukocyte Esterase Negative Brandyn/uL (Negative) 04/23/23 03:11 Urine RBC None seen /HPF (None Seen) 04/23/23 03:11 Urine WBC <5 /HPF (<5) 04/23/23 03:11 Ur Squamous Epith Cells <5 /HPF (None Seen) 04/23/23 03:11 Ur Transition Epith Cell <5 /HPF (None Seen) 04/17/23 07:25 Urine Bacteria <20 /HPF (<20) 04/23/23 03:11 Urine Mucus Slight /HPF (None Seen) 04/23/23 03:11 Urine Culture Reflexed Not needed 04/23/23 03:11 Urine Total Protein Negative (Negative) 04/23/23 03:11 Weight: 131 lb 11.2 oz Wound Present: No Closed Surgical Incision Present: No Negative Pressure Wound Therapy Present: No Physician Update: Labs reviewed her potassium increased to 5.2 while off of lasix. Will restart lasix at 10 mg daily. Her low blood pressures have improved with the GLENDY hose and abdominal binder. Working on swallowing with speech. Mod to max assistance with transfers. Walks 130' with RW and contact guard assistance. Easy fatigue with max to dependent with foot wear. Decreased range of motion in the upper extremity. Comment: multiple scar noted Summary: Patient's care plan and skilled nursing goals have been reviewed and revised as necessary. Please see the Rehabilitation Signature page for all necessary signatures.
--- NOTE | 2023-04-26 17:39 | RAD REPORT ---
EXAM DESCRIPTION: Becca Single View04/26/2023 4:45 pm CLINICAL HISTORY: Cough COMPARISON: April 19, 2023 FINDINGS: Mild right upper lobe opacity is unchanged which could indicate a mild pneumonia or be chr onic Left lung appears clear of acute infiltrate Heart is normal size. Pacemaker leads in place
[2023-04-26] MEDS: AMIODARONE HCL 200 MG TAB PO SCH (21:07)
[2023-04-26] MEDS: ATORVASTATIN 20 MG TAB PO SCH (21:08)
[2023-04-26] MEDS: hydrOXYzine HCL 25 MG TAB PO SCH (21:09)
[2023-04-26] MEDS: clonazePAM 1 MG TAB PO PRN (21:19)
[2023-04-27] MEDS: TOBRADEX 0.3-0.1% OPTH OINTMENT EACH EYE SCH ×6 (04:00→20:00)
[2023-04-27 06:23] LABS: Absolute Lymphocytes (CBC) 1.8 K/uL (0.7-4.9); Hematocrit 27.3 % (36.0-45.0); Lymphocytes % 45.2 % (15.3-44.8); MCV 103.9 fL (80-100); MPV 6.7 fL (7.6-11.3); RBC Red Blood Cell Count 2.63 M/uL (3.86-4.86)
[2023-04-27 06:38] LABS: Potassium 4.8 mEq/L (3.5-5.1)
[2023-04-27] MEDS: LEVOTHYROXINE SOD 0.1 MG TAB PO SCH (07:06)
[2023-04-27] MEDS: PANTOPRAZOLE 40MG TABLET PO SCH (07:06)
[2023-04-27] MEDS: [UNRECOGNIZED DRUG - MIXTURE] IH SCH ×2 (08:00→20:00)
[2023-04-27] MEDS: ENSURE HIGH PROTEIN 237 ML CAN PO SCH ×2 (08:00→20:19)
[2023-04-27] MEDS: POLYVINYL ALCOHOL 1.4% 15 ML EACH EYE SCH (08:00)
[2023-04-27] MEDS: APIXABAN 2.5 MG TABLET PO SCH ×2 (09:00→20:18)
[2023-04-27] MEDS: FE SULF/FA/VIT B COMP & C TAB PO SCH (09:15)
[2023-04-27] MEDS: SODIUM CHLORIDE 1 GM TAB PO SCH (09:15)
[2023-04-27] MEDS: GABAPENTIN 300 MG CAP PO SCH ×2 (09:15→20:20)
[2023-04-27] MEDS: LIDOCAINE 4% PATCH TOP SCH (09:15)
[2023-04-27] MEDS: FERROUS SULFATE 325 MG TAB PO SCH ×2 (09:16→20:19)
[2023-04-27] MEDS: CRANBERRY FRUIT EXTRACT 200 MG CAP PO SCH ×2 (09:16→20:18)
[2023-04-27] MEDS: ASCORBIC ACID 500 MG TABLET PO SCH (09:16)
[2023-04-27] MEDS: FUROSEMIDE 20 MG TABLET PO SCH (09:16)
[2023-04-27] MEDS: levETIRAcetam 500 MG TAB PO SCH ×2 (09:17→20:19)
[2023-04-27] MEDS: MIDODRINE HCL 5 MG TABLET PO SCH ×2 (09:17→20:20)
[2023-04-27] MEDS: VITAMIN D 1000 UNIT TAB PO SCH (09:18)
[2023-04-27] MEDS: ASPIRIN EC 81 MG TAB PO SCH (09:18)
[2023-04-27] MEDS: NYSTATIN PWDR 100000 UNIT/GM TOP SCH ×2 (10:29→20:21)
[2023-04-27] MEDS: TRAMADOL HCL 50 MG TAB PO PRN (14:00)
[2023-04-27] MEDS: AMIODARONE HCL 200 MG TAB PO SCH (20:20)
[2023-04-27] MEDS: ATORVASTATIN 20 MG TAB PO SCH (20:20)
[2023-04-27] MEDS: hydrOXYzine HCL 25 MG TAB PO SCH (20:20)
[2023-04-27] MEDS: clonazePAM 1 MG TAB PO PRN (20:28)
[2023-04-27 20:43] VITALS: BP 107/53
[2023-04-28] MEDS: TOBRADEX 0.3-0.1% OPTH OINTMENT EACH EYE SCH ×3 (04:00→08:00)
[2023-04-28] MEDS: PANTOPRAZOLE 40MG TABLET PO SCH (06:34)
[2023-04-28] MEDS: LEVOTHYROXINE SOD 0.1 MG TAB PO SCH (06:34)
[2023-04-28] MEDS: [UNRECOGNIZED DRUG - MIXTURE] IH SCH (08:00)
[2023-04-28] MEDS: NYSTATIN PWDR 100000 UNIT/GM TOP SCH (08:00)
[2023-04-28] MEDS: ENSURE HIGH PROTEIN 237 ML CAN PO SCH (08:00)
[2023-04-28] MEDS: POLYVINYL ALCOHOL 1.4% 15 ML EACH EYE SCH (08:00)
[2023-04-28] MEDS: VITAMIN D 1000 UNIT TAB PO SCH (08:32)
[2023-04-28] MEDS: ASPIRIN EC 81 MG TAB PO SCH (08:32)
[2023-04-28] MEDS: LIDOCAINE 4% PATCH TOP SCH (08:32)
[2023-04-28] MEDS: CRANBERRY FRUIT EXTRACT 200 MG CAP PO SCH (08:32)
[2023-04-28] MEDS: APIXABAN 2.5 MG TABLET PO SCH (08:33)
[2023-04-28] MEDS: FE SULF/FA/VIT B COMP & C TAB PO SCH (08:33)
[2023-04-28] MEDS: FERROUS SULFATE 325 MG TAB PO SCH (08:33)
[2023-04-28] MEDS: FUROSEMIDE 20 MG TABLET PO SCH (08:34)
[2023-04-28] MEDS: levETIRAcetam 500 MG TAB PO SCH (08:34)
[2023-04-28] MEDS: MIDODRINE HCL 5 MG TABLET PO SCH (08:34)
[2023-04-28] MEDS: SODIUM CHLORIDE 1 GM TAB PO SCH (08:34)
[2023-04-28] MEDS: ASCORBIC ACID 500 MG TABLET PO SCH (08:35)
[2023-04-28] MEDS: GABAPENTIN 300 MG CAP PO SCH (08:35)
[2023-04-28 09:14] VITALS: TEMP 97.4
== END 2023-04-28 09:30 | DRG 948 ==
LOC: 5TH 11:00
PROVIDERS: ADMIT Psychiatry & Neurology Neurology with Special Qualifications in Child Neurology; ATTEND Psychiatry & Neurology Neurology with Special Qualifications in Child Neurology
DX: R53.81 Other malaise (principal); K56.7 Ileus, unspecified; I25.10 Atherosclerotic heart disease of native coronary artery without angina pectoris; M19.90 Unspecified osteoarthritis, unspecified site; I50.9 Heart failure, unspecified; J44.9 Chronic obstructive pulmonary disease, unspecified; I48.91 Unspecified atrial fibrillation; K59.00 Constipation, unspecified; E78.5 Hyperlipidemia, unspecified; M06.9 Rheumatoid arthritis, unspecified; I95.1 Orthostatic hypotension; Z20.822 Contact with and (suspected) exposure to COVID-19
CPT/HCPCS: 36415; 71045; 80048; 81001; 82040; 83735; 84134; 85025; 87086; 87088; 87635; 92526; 92610; 94010; 97110; 97112; 97116; 97140; 97162; 97165; 97530; 97542; J2001; J7030; J7040

== ENCOUNTER 2023-07-13 11:26 | Inpatient (IN) | payer OTHER, BC ==
[2023-07-14] MEDS ORDERED: BENZONATATE 100 MG CAP PO PRN (01:50)
[2023-07-14] MEDS: ALBUTEROL 2.5 MG/3 ML NEB SOL NEB SCH ×2 (02:00→07:45)
[2023-07-14] MEDS: IPRATROPIUM BROM 0.5MG/2.5ML NEB SCH ×2 (02:00→07:45)
[2023-07-14 04:41] LABS: Specific Gravity 1.016 (1.005-1.030); Urine Bacteria <20 /HPF (<20); Urine Bilirubin NEGATIVE (Negative); Urine Blood Negative (Negative); Urine Clarity Turbid (Clear); Urine Color Light-Yellow (Yellow); Urine Glucose NEGATIVE (Negative); Urine Mucus Slight /HPF (None Seen); Urine Protein TRACE (Negative); Urine RBC <5 /HPF (None Seen); Urine Urobilinogen Normal (Normal); Urine WBC Clump Rare /HPF (None Seen); Urine pH 6.5 (5.0-7.0)
[2023-07-14] MEDS: LEVOTHYROXINE SOD 0.1 MG TAB PO SCH (05:53)
[2023-07-14 06:27] LABS: Hematocrit 28.3 % (36.0-45.0); Lymphocytes % 33.7 % (15.3-44.8); MCV 104.3 fL (80-100); MPV 6.6 fL (7.6-11.3); Platelets 306 thou/uL (152-406); RBC Red Blood Cell Count 2.71 M/uL (3.86-4.86)
[2023-07-14] MEDS ORDERED: LEVOTHYROXINE SOD 0.05 MG TABLET PO SCH (06:30)
[2023-07-14] MEDS ORDERED: PANTOPRAZOLE 40MG TABLET PO SCH (06:30)
[2023-07-14 06:44] LABS: Albumin 2.4 g/dL (3.4-5.0); Magnesium 1.8 mg/dL (1.6-2.4); Potassium 3.7 mEq/L (3.5-5.1); Prealbumin 12.8 mg/dL (20-40)
[2023-07-14] MEDS: PANTOPRAZOLE 40MG TABLET PO SCH (07:29)
[2023-07-14] MEDS: ZINC SULFATE 220 MG CAP PO SCH (07:30)
[2023-07-14] MEDS: DOCUSATE NA/SENNA CONC 1 TAB PO SCH ×2 (07:30→20:00)
[2023-07-14] MEDS: AMIODARONE HCL 200 MG TAB PO SCH (07:30)
[2023-07-14] MEDS: ASPIRIN 81 MG CHEWABLE TABLET PO SCH (07:30)
[2023-07-14] MEDS: VITAMIN D 400 UNIT TAB PO SCH (07:31)
[2023-07-14] MEDS: NITROFURAN MACRO 100 MG CAP PO SCH ×2 (07:31→20:08)
[2023-07-14] MEDS: levETIRAcetam 500 MG TAB PO SCH ×2 (07:32→20:08)
[2023-07-14] MEDS: ASCORBIC ACID 500 MG TABLET PO SCH (07:33)
[2023-07-14] MEDS: POTASSIUM CL SA 10 MEQ TAB PO SCH (07:33)
[2023-07-14] MEDS: APIXABAN 2.5 MG TABLET PO SCH ×2 (07:33→20:08)
[2023-07-14] MEDS: GABAPENTIN 300 MG CAP PO SCH ×3 (07:33→20:08)
[2023-07-14] MEDS: CRANBERRY FRUIT EXTRACT 200 MG CAP PO SCH ×2 (07:34→20:08)
[2023-07-14] MEDS ORDERED: GABAPENTIN 100 MG CAP PO SCH (09:00)
[2023-07-14] MEDS ORDERED: IPRATROPIUM BROM 0.5MG/2.5ML NEB PRN (13:29)
[2023-07-14] MEDS ORDERED: ALBUTEROL 2.5 MG/3 ML NEB SOL NEB PRN (14:00)
--- NOTE | 2023-07-14 17:07 | HP ---
Date of Admission: 07/13/2023 Time Of Service: 3 p.m. Chief Complaint: Bladder infection and became weak. History Of Present Illness: Ms. España is an 82-year-old patient with multiple medical problems including prior stroke, transient ischemic attack, bilateral footdrops, COPD requiring home O2, who was at [facility] in the Inpatient Rehabilitation last month and was able to ambulate 100 feet with a rolling walker. She was sent to [facility] due to lack of home care and spent 20 days there and then went home. While at home, required little assistance for transfers and ambulated household distance independently. However, she woke up on home morning not feeling well, having painful urination, urgency and frequency, and she had multiple housemates who were positive for COVID. She was seen at [facility], [place], diagnosed with acute cystitis, dehydration, and had healing open pressure ulcers. Also found to be COVID positive. She did receive IV Rocephin for the acute cystitis with hematuria and remdesivir for 3 days to treat her COVID positivity. She has been asymptomatic after initial fever in the emergency department. She received DVT prophylaxis and prophylaxis against the ulcerations in the gastric region. She did require offloading and dressing changes over decubital ulcers and monitoring for her oxygenation and for COPD with bronchodilators. She did receive amiodarone for paroxysmal atrial fibrillation and renal management for chronic kidney disease. Due to her complication of urinary tract infection, COVID positivity, debility and multiple comorbid conditions, she became significantly debilitated in addition to being malnourished and diffusely weak and now requires moderate assistance for her transfers, to ambulate, to perform activities of daily living, and to do upper and lower body dressing. As a result, she was determined to be an appropriate candidate and meets EMS criteria for inpatient rehabilitation and will benefit from higher level of care for physical, occupational, and speech therapy along with penitentiary and physician monitoring and management. Past Medical History: Arthritis, asthma, atrial fibrillation, congestive heart failure, COPD, coronary artery disease, depression, gastritis, dyslipidemia, hypertension, seizure, stroke, hypothyroidism, urinary tract infection. Past Surgical History: Appendectomy, neck surgery, cholecystectomy, cardiac stents, hernia repair, hysterectomy, knee replacement, and tonsillectomy. Allergies: ADHESIVE TAPE, NONSTEROIDAL ANTI-INFLAMMATORY MEDICATIONS, PROMETHAZINE, VANCOMYCIN, AND REMDESIVIR. Current Medications: Proventil 0.83 mg nebulizer every 6 hours as needed, amiodarone 200 mg daily, Eliquis 2.5 mg twice daily, vitamin C 500 mg daily, aspirin 81 mg daily, Lipitor 20 mg at bedtime, Tessalon Perles 200 mg 3 times daily, vitamin D 8000 units daily, gabapentin 300 mg 3 times daily, Atarax 25 mg at bedtime, ipratropium 0.5 mg nebulizer every 6 hours as needed, Keppra 250 mg twice daily, Synthroid 0.1 mg daily, Macrobid 100 mg twice daily, Ensure Enlive 237 mL twice daily, Protonix 40 mg at daily, potassium 20 mEq daily, Senokot-S 2 at bedtime, Ultram 50 mg every 6 hours, and zinc sulfate 220 mg daily. Family History: Noncontributory. Social History: The patient lives with family in a single-story home. No alcohol, tobacco, or IV drug use. Laboratory Studies: White blood cell count 6.0, hemoglobin 9.7, hematocrit 28.3, platelets 306. Sodium 140, potassium 3.7, chloride 108, carbon dioxide 30, BUN 21, creatinine 0.92, prealbumin 12.8, albumin 2.4, magnesium 1.8, calcium 7.7. Urinalysis; esterase 500, white blood cells greater than 50, bacteria less than 20, trace budding yeast, urine total protein at trace level and clarity is turbid. X-ray/imaging: Chest x-ray on 07/11 shows no acute disease or new airspace density. There are stable interstitial markings, which are due to scarring. There is stable blunting of the costophrenic angles. Head CT scan without contrast on 07/11, no definite intracranial processes, overall stable sequelae of atherosclerotic arterial and chronic microvascular ischemic disease, age- appropriate generalized parenchymal volume loss, paranasal sinus and bilateral external auditory canal disease noted. Review of Systems: Ms. España reports some pain in the hands from arthritic changes. In addition, she said she received multiple injections for blood work and medication administration and has had bruising in her upper extremities from the blood work in combination with aspirin and Eliquis needed for stroke risk reduction and DVT prophylaxis. Otherwise, she has been sleeping well, eating well. She denies any other positives on a 10-point systems review. Physical Examination: Vital Signs: Blood pressure 130/61, pulse 79, respiratory rate 18, temperature 97.8, oxygen saturation 94% on room air. Weight 148 pounds, height 5 feet 5 inches, BMI 24.6. General: Ms. España is resting comfortably in bed. HEENT: She is normocephalic and atraumatic. Sclerae anicteric. Oropharynx is moist. Neck: Supple. Chest: Clear. Heart: Regular. Abdomen: Soft. Extremities: Show no significant edema or cyanosis. Arthritic changes noted in the arms. Neurologic: In terms of her neurologic evaluation; alert and oriented to situation, place, person, follows commands appropriately. No obvious cranial nerve deficits. Motor examination; diffuse weakness in upper and lower extremities around 4. Coordination slow, but intact of lower extremities. Symmetric reflexes. Current Level Of Functioning: Currently set up assistance for eating, supervision started for oral hygiene. Maximal assist for toilet, shower, upper body dressing and moderate assistance. Maximal assist for lower body dressing. Independent for donning and doffing shoes. Supervision for rolling right to left and left to right. Supervision, contact guard assist sit to stand. Maximal assistance for going from bed to chair and from getting to the toilet. She is also dependent in terms of gait, only ambulating about 20 foot with a rolling walker. Rehabilitation And Medical Assessment And Plan: Ms. España is admitted to the inpatient unit with impairment category 20 miscellaneous. Her impairment group code is 16, debility, noncardiac, nonpulmonary, and her etiologic diagnosis is cystitis with hematuria. Comorbidities are chronic obstructive pulmonary disease, COVID positivity. She has 5 days of isolation left, decrease in mobility, decrease in physical functioning, malnutrition, urinary incontinence and urinary tract infection, also atrial fibrillation. Plan: 1. She will have physical, occupational, and speech therapy for 3.5 hours, 5 of 7 days, f 2. Dyslipidemia, atorvastatin 20 mg at bedtime, 3. Atrial fibrillation, amiodarone 200 mg daily. 4. DVT risk reduction and stroke risk reduction Eliquis 2.5 mg twice daily and aspirin 81 mg daily. 5. Seizures, Keppra 250 mg twice daily, 6. Hypothyroidism, Synthroid 0.1 mg daily. 7. GE reflux Protonix 40 mg daily. 8. Constipation, Senokot 2 at bedtime. 9. Pain, tramadol 50 mg every 6 hours as needed. 10. COVID positivity, continue with zinc sulfate 220 mg daily. Impact Of Comorbidities: Currently, Ms. España is on isolation 5 more days. She is asymptomatic of COVID. She will then be able to have therapy outside of the room. Currently, we will have bed mobility exercises and transfers within the room. Otherwise, she does have the paroxysmal atrial fibrillation and has Eliquis and aspirin on board, will be observed for any ,possibility of stroke or TIA. In addition, the possibility of respiratory issues can worsen. She will have incentive spirometry. Continue nebulizers and chest x-ray as appropriate. Also fluid management will be addressed with electrolyte including BUN, creatinine, evaluation, and the need for replacement will be addressed. Rehab Specific Plan: Ms. España will have 3.5 hours, 5 of 7 days of physical, occupational, and speech therapy to improve her transfers, her ability to go up and down 5 steps to ambulate 250 feet, to dress upper and lower body, to go on the toilet and shower, and to perform toileting and showering and also to keep her working on her cognitive functioning to make safe decisions and for good safety awareness. Ms. España has a good understanding of the benefits of inpatient rehabilitation and she has a potential to improve significantly with physical, occupational, speech therapy. If need be, assistance from the Respiratory Service, Nutrition Service, Wound Care that she has to decubital ulcers will be contacted and if need be, Cardiology Service may be involved. Given her complex medical condition and risk of further complications, rehabilitation cannot be safely or effectively perform the lower level facility such as penitentiary. Barriers To Discharge: Currently, she does have COVID positivity and is expected to be out of isolation in 5 days. Otherwise, no other significant barriers and she will be able to go home with family at the end. Estimated Length Of Stay: About 12 days. Disposition: Home with family. Prognosis: Good. Rehabilitation Goals: 1. Become independent with upper and lower body dressing. 2. Independent toileting from bed to chair to toilet and shower. 3. Independent performing showering, toileting, and bathing. 4. Independent with ambulating 250 feet and going up and down at least 10 steps. 5. Independent with cognitive functioning. 6. The above goals were reviewed with Ms. España and she is in agreement. I acknowledge I have personally performed a full physical examination on Ms. España no later than 24 hours after admission to the inpatient rehabilitation facility and determined that she is able to tolerate the above course of treatment at an intensive level for reasonable period of time. A detailed individualized plan of care for her will be completed by hospital day 4 based on the preadmission screen, history and physical, and therapy evaluations. NAKIA Voice ID: [id number]
[2023-07-14] MEDS: TRAZODONE 50 MG TABLET PO PRN (20:08)
[2023-07-14] MEDS: hydrOXYzine HCL 25 MG TAB PO SCH (20:08)
[2023-07-14] MEDS: ATORVASTATIN 20 MG TAB PO SCH (20:08)
[2023-07-14] MEDS: ENSURE HIGH PROTEIN 237 ML CAN PO SCH (20:09)
[2023-07-15] MEDS: LEVOTHYROXINE SOD 0.1 MG TAB PO SCH (06:56)
[2023-07-15] MEDS: PANTOPRAZOLE 40MG TABLET PO SCH (06:56)
[2023-07-15] MEDS: ACETAMINOPHEN 500 MG TAB PO PRN (06:58)
[2023-07-15] MEDS: AMIODARONE HCL 200 MG TAB PO SCH (07:04)
[2023-07-15] MEDS: VITAMIN D 400 UNIT TAB PO SCH (07:04)
[2023-07-15] MEDS: ASPIRIN 81 MG CHEWABLE TABLET PO SCH (07:04)
[2023-07-15] MEDS: GABAPENTIN 300 MG CAP PO SCH ×3 (07:04→20:27)
[2023-07-15] MEDS: POTASSIUM CL SA 10 MEQ TAB PO SCH (07:04)
[2023-07-15] MEDS: DOCUSATE NA/SENNA CONC 1 TAB PO SCH ×3 (07:04→20:00)
[2023-07-15] MEDS: CRANBERRY FRUIT EXTRACT 200 MG CAP PO SCH ×2 (07:04→20:27)
[2023-07-15] MEDS: APIXABAN 2.5 MG TABLET PO SCH ×2 (07:05→20:28)
[2023-07-15] MEDS: levETIRAcetam 500 MG TAB PO SCH ×2 (07:05→20:28)
[2023-07-15] MEDS: ENSURE HIGH PROTEIN 237 ML CAN PO SCH ×2 (07:05→20:29)
[2023-07-15] MEDS: ASCORBIC ACID 500 MG TABLET PO SCH (07:05)
[2023-07-15] MEDS: NITROFURAN MACRO 100 MG CAP PO SCH ×2 (07:05→20:27)
[2023-07-15] MEDS: ZINC SULFATE 220 MG CAP PO SCH (07:05)
[2023-07-15] MEDS ORDERED: DOCUSATE NA/SENNA CONC 1 TAB PO PRN (14:22)
[2023-07-15] MEDS: hydrOXYzine HCL 25 MG TAB PO SCH (20:28)
[2023-07-15] MEDS: ATORVASTATIN 20 MG TAB PO SCH (20:28)
[2023-07-15] MEDS: TRAZODONE 50 MG TABLET PO PRN (20:37)
[2023-07-16] MEDS: LEVOTHYROXINE SOD 0.1 MG TAB PO SCH (06:54)
[2023-07-16] MEDS: PANTOPRAZOLE 40MG TABLET PO SCH (06:55)
[2023-07-16] MEDS: ENSURE HIGH PROTEIN 237 ML CAN PO SCH ×2 (07:26→19:47)
[2023-07-16] MEDS: VITAMIN D 400 UNIT TAB PO SCH (07:26)
[2023-07-16] MEDS: POTASSIUM CL SA 10 MEQ TAB PO SCH (07:26)
[2023-07-16] MEDS: ASPIRIN 81 MG CHEWABLE TABLET PO SCH (07:27)
[2023-07-16] MEDS: CRANBERRY FRUIT EXTRACT 200 MG CAP PO SCH ×2 (07:27→19:34)
[2023-07-16] MEDS: NITROFURAN MACRO 100 MG CAP PO SCH ×2 (07:27→19:34)
[2023-07-16] MEDS: ASCORBIC ACID 500 MG TABLET PO SCH (07:27)
[2023-07-16] MEDS: levETIRAcetam 500 MG TAB PO SCH ×2 (07:27→19:34)
[2023-07-16] MEDS: ZINC SULFATE 220 MG CAP PO SCH (07:27)
[2023-07-16] MEDS: APIXABAN 2.5 MG TABLET PO SCH ×2 (07:27→19:34)
[2023-07-16] MEDS: AMIODARONE HCL 200 MG TAB PO SCH (07:28)
[2023-07-16] MEDS: GABAPENTIN 300 MG CAP PO SCH ×3 (07:28→19:34)
[2023-07-16] MEDS: levoFLOXacin 500 MG TAB PO SCH (07:29)
[2023-07-16] MEDS: DOCUSATE NA/SENNA CONC 1 TAB PO SCH (08:00)
[2023-07-16] MEDS: ATORVASTATIN 20 MG TAB PO SCH (19:35)
[2023-07-16] MEDS: TRAZODONE 50 MG TABLET PO PRN (19:35)
[2023-07-16] MEDS: hydrOXYzine HCL 25 MG TAB PO SCH (19:35)
[2023-07-16] MEDS: JUVEN PACKET PO SCH (19:48)
[2023-07-17] MEDS: PANTOPRAZOLE 40MG TABLET PO SCH (06:59)
[2023-07-17] MEDS: LEVOTHYROXINE SOD 0.1 MG TAB PO SCH (06:59)
[2023-07-17] MEDS: ENSURE HIGH PROTEIN 237 ML CAN PO SCH ×2 (08:00→20:00)
[2023-07-17] MEDS: JUVEN PACKET PO SCH ×2 (08:00→20:00)
[2023-07-17] MEDS: APIXABAN 2.5 MG TABLET PO SCH ×2 (08:05→20:29)
[2023-07-17] MEDS: levETIRAcetam 500 MG TAB PO SCH ×2 (08:05→20:27)
[2023-07-17] MEDS: levoFLOXacin 500 MG TAB PO SCH (08:06)
[2023-07-17] MEDS: NITROFURAN MACRO 100 MG CAP PO SCH ×2 (08:06→20:28)
[2023-07-17] MEDS: ZINC SULFATE 220 MG CAP PO SCH (08:07)
[2023-07-17] MEDS: VITAMIN D 400 UNIT TAB PO SCH (08:07)
[2023-07-17] MEDS: POTASSIUM CL SA 10 MEQ TAB PO SCH (08:07)
[2023-07-17] MEDS: CRANBERRY FRUIT EXTRACT 200 MG CAP PO SCH ×2 (08:08→20:29)
[2023-07-17] MEDS: AMIODARONE HCL 200 MG TAB PO SCH (08:08)
[2023-07-17] MEDS: ASPIRIN 81 MG CHEWABLE TABLET PO SCH (08:09)
[2023-07-17] MEDS: ASCORBIC ACID 500 MG TABLET PO SCH (08:09)
[2023-07-17] MEDS: GABAPENTIN 300 MG CAP PO SCH ×3 (08:12→20:29)
[2023-07-17] MEDS: LOPERAMIDE HCL 2 MG CAPSULE PO PRN (11:05)
[2023-07-17] MEDS: TRAZODONE 50 MG TABLET PO PRN (20:28)
[2023-07-17] MEDS: TRAMADOL HCL 50 MG TAB PO PRN (20:29)
[2023-07-17] MEDS: ATORVASTATIN 20 MG TAB PO SCH (20:29)
[2023-07-17] MEDS: hydrOXYzine HCL 25 MG TAB PO SCH (20:30)
--- NOTE | 2023-07-18 02:37 | PN ---
Subjective: [facility]. Esp[facility] She has 3 more days to go. I asked nurse s and reviewing discussions. Patient has no new complaints. No fevers, chills. No shortness of tosha ath. No other issues. Review of Systems: No myalgias, arthralgias. No rash, headache, weight change. No active psychiatric issues. Still co ntinues to be weak and doing in room mobility exercises with negative pressure system in place. Physical Examination: Vital Signs: Blood pressure 141/63, pulse 66, respiratory rate 16, temperature 97.5, oxygen saturati on 93%. Neuro: No focal or new deficits. Diffuse weakness as noted previously. No issues with air movement, abdomen or extremity edema is not present. Laboratory Studies: No new laboratory studies other than on July 14, white blood cell count 6. 0, hemoglobin 9.7, platelets 306. Sodium 140, potassium 3.7, chloride 108, BUN 21, creatinine 0.92. Prealbumin 12.8, albumin 2.4. Urinalysis shows esterase 500, greater than 50 white blood cells, tra ce budding yeast, total protein is trace and clarity is turbid. Her urine cultures on the , did g row Klebsiella oxytoca with a sensitivity pattern, sensitive to gentamicin, levofloxacin, and meropen em. She began levofloxacin 500 mg daily on 07/16/2023, and complete 5 days. She is also on Macrobid 100 mg twice daily. X-ray/imaging: No new x-rays or imaging. Medications: As noted, levofloxacin 500 mg daily for 5 days, zinc sulfate 220 mg daily, Desyrel 25 m g at bedtime, Ultram 50 mg every 6 hours as needed. Senokot S 2 at bedtime, potassium 20 mEq daily, P rotonix 40 mg daily, Ensure Enlive 237 mL twice daily, Macrobid 100 mg twice daily, melatonin 3 mg at bedtime, Imodium 2 mg every 4 hours as needed, Synthroid 0.1 mg daily, levofloxacin as noted, Keppra 250 mg twice daily, James 1 packet twice daily, Atrovent nebulizer 0.5 mg every 6 hours as needed, A tarax 25 mg at bedtime, gabapentin 300 mg 3 times daily, vitamin D 800 units daily, Tessalon Perles 2 00 mg 3 times daily, Lipitor 20 mg at bedtime, aspirin enteric-coated 81 mg daily, vitamin C 500 mg d aily, Eliquis 2.5 mg daily, Cordarone 200 mg daily, albuterol nebulizer 2.5 mg nebulized every 6 hour s, finally Tylenol 500 mg every 4 hours as needed. Current Functional Status: With occupational therapy, she did supine to sit and going from sit to ng pine with maximal assistance. Rolling in bed also, moderate assistance. She tolerated about 10 sher abby of edge of bed unsupported to improve core strength and this is sitting at edge of bed. With phy sical therapy, bed mobility was done, she is going up and down and did require moderate assistance. She ambulated 15 feet from the bed to the door and back and required maximum assistance and completed 2 laps from the door to the window in her room where she is on isolation. Progress Towards Rehabilitation Goals: Ms. España is beginning to make fair progress for goals, i ch are to become independent with upper and lower body dressing, transferring, toileting, showering, ambulating 250 feet when she is able to come out of isolation and going up and down 10 steps all with modified independence. She also will continue performing her cognitive function with functioning wi independence. Assessment: Ms. España is an 82-year-old patient in rehabilitation with noncardiac, nonpulmonary de bility. She has comorbid cystitis, chronic obstructive pulmonary disease, COVID positivity, malnutri tion, urinary incontinence, urinary tract infection, and atrial fibrillation. Plan: 1.Continue physical and occupational therapy 3 hours a day, 5/7 days. 2.Continue with antibiotic as noted above for 5 days, that is Levaquin for her urinary tract infecti on. 3.Continue amiodarone 200 mg daily for atrial fibrillation. 4.Also, Eliquis 2.5 mg twice daily for aspirin 81 mg daily for stroke and DVT risk reduction. 5.Gabapentin 300 mg 3 times daily for neuropathic pain. 6.Levothyroxine 0.1 mg daily for hypothyroidism. 7.Tramadol for pain. Comorbidities That Continue To Impact Rehabilitation Process: Being COVID positive and requiring 10 days of isolation after she was diagnosed with the COVID from a test on July 11. Out of isolatio n if she has no symptoms on July 20, and today is July 17. LB/MODL Voice ID: [id number] Report ID: [id number]
[2023-07-18] MEDS: TRAMADOL HCL 50 MG TAB PO PRN ×3 (02:42→20:16)
[2023-07-18] MEDS: MELATONIN 3 MG TABLET PO PRN (02:42)
[2023-07-18] MEDS: LEVOTHYROXINE SOD 0.1 MG TAB PO SCH (06:30)
[2023-07-18] MEDS: PANTOPRAZOLE 40MG TABLET PO SCH (06:30)
[2023-07-18 07:59] LABS: Absolute Lymphocytes (CBC) 2.2 K/uL (0.7-4.9); MCV 104.3 fL (80-100); MPV 6.9 fL (7.6-11.3); Platelets 278 thou/uL (152-406); RBC Red Blood Cell Count 2.58 M/uL (3.86-4.86)
[2023-07-18] MEDS: JUVEN PACKET PO SCH ×2 (08:00→20:00)
[2023-07-18] MEDS: ENSURE HIGH PROTEIN 237 ML CAN PO SCH ×2 (08:00→20:00)
[2023-07-18] MEDS: GABAPENTIN 300 MG CAP PO SCH ×3 (08:07→20:16)
[2023-07-18] MEDS: NITROFURAN MACRO 100 MG CAP PO SCH (08:07)
[2023-07-18] MEDS: ZINC SULFATE 220 MG CAP PO SCH (08:08)
[2023-07-18] MEDS: VITAMIN D 400 UNIT TAB PO SCH (08:08)
[2023-07-18] MEDS: APIXABAN 2.5 MG TABLET PO SCH ×2 (08:08→20:15)
[2023-07-18] MEDS: levETIRAcetam 500 MG TAB PO SCH ×2 (08:08→20:16)
[2023-07-18] MEDS: CRANBERRY FRUIT EXTRACT 200 MG CAP PO SCH ×2 (08:08→20:15)
[2023-07-18] MEDS: levoFLOXacin 500 MG TAB PO SCH (08:09)
[2023-07-18] MEDS: ASCORBIC ACID 500 MG TABLET PO SCH (08:09)
[2023-07-18] MEDS: ASPIRIN 81 MG CHEWABLE TABLET PO SCH (08:09)
[2023-07-18] MEDS: POTASSIUM CL SA 10 MEQ TAB PO SCH (08:12)
[2023-07-18] MEDS: AMIODARONE HCL 200 MG TAB PO SCH (08:12)
[2023-07-18 08:13] LABS: Albumin 2.6 g/dL (3.4-5.0); Potassium 4.2 mEq/L (3.5-5.1)
[2023-07-18] MEDS: ONDANSETRON 4 MG (ODT) TAB PO PRN (14:25)
--- NOTE | 2023-07-18 18:43 | RAD REPORT ---
EXAM DESCRIPTION: RAD - Chest Single View - 07/18/2023 6:00 pm CLINICAL HISTORY: cough Chest pain. COMPARISON: Chest Single View dated 04/26/2023; Chest Single View dated 04/19/2023 FINDINGS: Portable technique limits examination quality. The lungs are emphysematous but grossly clear. The heart is normal in size. Multi lead pacer device p resent.Proximal shoulder hardware. Cervical spine hardware. IMPRESSION: No acute intrathoracic process suspected.
[2023-07-18] MEDS: DOCUSATE NA/SENNA CONC 1 TAB PO PRN (20:15)
[2023-07-18] MEDS: TRAZODONE 50 MG TABLET PO PRN (20:16)
[2023-07-18] MEDS: ATORVASTATIN 20 MG TAB PO SCH (20:16)
[2023-07-18] MEDS: hydrOXYzine HCL 25 MG TAB PO SCH (20:16)
--- NOTE | 2023-07-18 23:16 | PN ---
Date of Progress Note: 07/18/2023 [id number] Progress Note Visit Time Of Service: 1:50 p.m. Subjective: Ms. España is still in isolation from COVID. She is asymptomatic from that respect. O therwise, in terms of subjective, no shortness of breath, no fevers, no chills. No myalgias or arthr algias. Review of Systems: No rash. No headache. No issues such as cognitive dysfunction or memory loss. Difficulty noted wit h speech, expression, comprehension. No other positives on the systems review. Physical Examination: Vital Signs: Blood pressure 105/74, pulse 72, respiratory rate 16, temperature 97.6, O2 saturation 9 6%. General: It is noted, she was happy. She was able to walk 15 feet to the door and back in the room and walked to the window, covering around 25 feet. HEENT: She is normocephalic, atraumatic. Sclerae anicteric. Oropharynx is moist. Neck: Supple. Chest: Clear. Heart: Regular. Extremities: No edema or cyanosis. She has diffuse weakness. No focal findings there. Laboratory Studies: White blood cell count 5.2, hemoglobin 9.1, platelets 278. Sodium 136, potassiu m 4.2, chloride 105, carbon dioxide 29, BUN 29, creatinine increased from 0.92 to 1.44 from 07/14 to 07/18. Procalcitonin is less than 0.05. Her pre-albumin is 16, albumin 2.6. Her urinalysis on the 3rd did show the esterase of 500, white blood cells greater than 50, trace budding yeast, trace prote in, and turbid clarity. It is noted that she was started on Macrobid; however, when the cultures cam e back from her urine, it showed Klebsiella oxytoca and the antibiotic for which she was on, that lyla g was resistant to that and that was nitrofurantoin. She was switched to Levaquin, for which the manan teria is sensitive and has continued Levaquin. She will do so for 5 days beginning on 07/16. X-ray/imaging: Chest x-ray, which was just done, results are pending. Medications: Amiodarone 200 mg daily, Eliquis 2.5 mg twice daily, vitamin C 500 mg daily, aspirin 81 mg daily, Tylenol 500 mg every 4 hours as needed, albuterol nebulizer 2.5 mg every 6 hours as needed , Lipitor 20 mg at bedtime, Tessalon Perles 200 mg 3 times daily, vitamin D 800 mg daily, gabapentin 300 mg 3 times daily, Atarax 25 mg twice daily, ipratropium 0.5 mg nebulized every 6 hours as needed, James 1 packet twice daily, Keppra 250 mg twice daily, Levaquin as noted 500 mg daily beginning 5 to complete 5 days, Synthroid 0.1 mg daily, Imodium 2 mg daily as needed, melatonin 3 mg at bedtime , Ensure Enlive 237 mL twice daily, Zofran 4 mg every 4 hours as needed, Protonix 40 mg daily, potass ium 20 mEq daily, Senokot-S 2 at bedtime, Ultram 50 mg every 6 hours, trazodone 50 mg at bedtime, als o zinc sulfate 220 mg daily. Current Functional Status: Currently she did ambulate 20 feet 3 times and then refused to ambulate m ore. She did require maximum assistance with a rolling walker, moderate assistance for turning in be d. She did complete supine to sit transfers with moderate assistance and was able to do so on multip le trials with occupational therapies, supervision for supine to sit and sit to supine transfers. Progress Towards Rehabilitation Goals: Ms. España is making fair progress towards her goals of [place] modified independent with upper and lower body dressing, transferring, toileting, showering, amb ulating 500 feet with modified independence, up and down 25 steps with modified independence, and per forming cognitive functioning with modified independence. Assessment: Ms. España is an 82-year-old patient with noncardiac, nonpulmonary debility, was COVID positive, and is currently on isolation. She had a urinary tract infection and is on antibiotics. S he has atrial fibrillation, malnutrition, and chronic obstructive pulmonary disease along with cystit is. Plan: 1.She will continue with physical and occupational therapy for 5 of 7 days. 2.She will continue with Levaquin for urinary tract infection. 3.Amiodarone 200 mg daily for atrial fibrillation. 4.Eliquis 2.5 mg daily for DVT risk reduction. 5.Aspirin 81 mg daily for stroke risk reduction. 6.Gabapentin 300 mg 3 times daily for neuropathic pain. 7.Synthroid 0.1 mg daily for hypothyroidism. 8.Tramadol and Tylenol as needed for pain. Comorbidities That Continue To Impact Rehabilitation Process: She is positive for COVID and is on is olation, which will be out in 2 days. She also has urinary tract infection, is on antibiotics for th at. SADE/PATRIZIA Voice ID: [id number] Report ID: [id number]
[2023-07-19] MEDS: PANTOPRAZOLE 40MG TABLET PO SCH (06:49)
[2023-07-19] MEDS: LEVOTHYROXINE SOD 0.1 MG TAB PO SCH (06:49)
[2023-07-19] MEDS: JUVEN PACKET PO SCH ×2 (08:00→20:05)
[2023-07-19] MEDS: ENSURE HIGH PROTEIN 237 ML CAN PO SCH ×2 (08:00→20:05)
[2023-07-19] MEDS: ASPIRIN 81 MG CHEWABLE TABLET PO SCH (08:10)
[2023-07-19] MEDS: ZINC SULFATE 220 MG CAP PO SCH (08:10)
[2023-07-19] MEDS: levETIRAcetam 500 MG TAB PO SCH ×2 (08:10→20:06)
[2023-07-19] MEDS: VITAMIN D 400 UNIT TAB PO SCH (08:10)
[2023-07-19] MEDS: CRANBERRY FRUIT EXTRACT 200 MG CAP PO SCH ×2 (08:10→20:05)
[2023-07-19] MEDS: GABAPENTIN 300 MG CAP PO SCH ×3 (08:11→20:07)
[2023-07-19] MEDS: AMIODARONE HCL 200 MG TAB PO SCH (08:11)
[2023-07-19] MEDS: APIXABAN 2.5 MG TABLET PO SCH ×2 (08:11→20:05)
[2023-07-19] MEDS: levoFLOXacin 500 MG TAB PO SCH (08:11)
[2023-07-19] MEDS: POTASSIUM CL SA 10 MEQ TAB PO SCH (08:11)
[2023-07-19] MEDS: ASCORBIC ACID 500 MG TABLET PO SCH (08:12)
[2023-07-19] MEDS: TRAMADOL HCL 50 MG TAB PO PRN (09:30)
[2023-07-19] MEDS: ONDANSETRON 4 MG (ODT) TAB PO PRN (09:31)
--- NOTE | 2023-07-19 13:23 | P.RH.PN ---
Estimated Length of Stay: 15 Expected Discharge Date: 07/27/23 Discharge Disposition Plan: Home Family Support: Yes Half-Way Goal: Mobility, Transfers, Self Care Vital Signs: Last Vital Signs Temp 97.5 F 07/19/23 07:11 Pulse 71 07/19/23 07:11 Resp 17 07/19/23 09:30 BP 97/56 L 07/19/23 07:11 Pulse Ox 95 07/19/23 09:30 Laboratory: Laboratory Last Values WBC 5.20 thou/uL (4.3-10.9) 07/18/23 07:47 RBC 2.58 M/uL (3.86-4.86) L 07/18/23 07:47 Hgb 9.1 g/dL (12.0-15.0) L 07/18/23 07:47 Hct 27.0 % (36.0-45.0) L 07/18/23 07:47 MCV 104.3 fL (80-100) H 07/18/23 07:47 MCH 35.2 pg (27.0-35.0) H 07/18/23 07:47 MCHC 33.7 g/dL (32.0-36.0) 07/18/23 07:47 RDW 15.7 % (12.1-15.2) H 07/18/23 07:47 Plt Count 278 thou/uL (152-406) 07/18/23 07:47 MPV 6.9 fL (7.6-11.3) L 07/18/23 07:47 Neutrophils % 38.6 % (41.7-73.7) L 07/18/23 07:47 Lymphocytes % 42.0 % (15.3-44.8) 07/18/23 07:47 Monocytes % 13.1 % (3.3-12.3) H 07/18/23 07:47 Eosinophils % 4.5 % (0-4.4) H 07/18/23 07:47 Basophils % 1.8 % (0-1.3) H 07/18/23 07:47 Absolute Neutrophils 2.0 K/uL (1.8-8.0) 07/18/23 07:47 Absolute Lymphocytes 2.2 K/uL (0.7-4.9) 07/18/23 07:47 Absolute Monocytes 0.7 K/uL (0.1-1.3) 07/18/23 07:47 Absolute Eosinophils 0.2 K/uL (0-0.5) 07/18/23 07:47 Absolute Basophils 0.1 K/uL (0-0.5) 07/18/23 07:47 Sodium 136 mEq/L (136-145) 07/18/23 07:47 Potassium 4.9 mEq/L (3.5-5.1) 07/19/23 11:50 Chloride 105 mEq/L (98-107) 07/18/23 07:47 Carbon Dioxide 29 mEq/L (21-32) 07/18/23 07:47 Anion Gap 6.2 mEq/L (5.0-15.0) 07/18/23 07:47 BUN 29 mg/dL (7-18) H 07/18/23 07:47 Creatinine 1.44 mg/dL (0.55-1.02) H 07/18/23 07:47 Est GFR (CKD-EPI) 36 ml/min (=/>90) L 07/18/23 07:47 Glucose 87 mg/dL (74-106) 07/18/23 07:47 Calcium 8.5 mg/dL (8.5-10.1) 07/18/23 07:47 Magnesium 2.0 mg/dL (1.6-2.4) 07/18/23 07:47 Albumin 2.6 g/dL (3.4-5.0) L 07/18/23 07:47 Prealbumin 16.0 mg/dL (20-40) L 07/18/23 07:47 Procalcitonin < 0.05 ng/mL (<0.050) 07/18/23 13:56 Urine Color Light-yellow (Yellow) 07/14/23 03:00 Urine Clarity Turbid (Clear) H 07/14/23 03:00 Urine pH 6.5 (5.0-7.0) 07/14/23 03:00 Ur Specific [place] 1.016 (1.005-1.030) 07/14/23 03:00 Glucose (UA)(Auto) Negative (Negative) 07/14/23 03:00 Urine Ketones Negative (Negative) 07/14/23 03:00 Urine Blood Negative (Negative) 07/14/23 03:00 Urine Nitrite Negative (Negative) 07/14/23 03:00 Urine Bilirubin Negative (Negative) 07/14/23 03:00 Urine Urobilinogen Normal (Normal) 07/14/23 03:00 Ur Leukocyte Esterase 500 Brandyn/uL (Negative) H 07/14/23 03:00 Urine RBC <5 /HPF (None Seen) 07/14/23 03:00 Urine WBC >50 /HPF (<5) H 07/14/23 03:00 Urine WBC Clumps Rare /HPF (None Seen) 07/14/23 03:00 Ur Squamous Epith Cells <5 /HPF (None Seen) 07/14/23 03:00 Amorphous Crystals Trace /HPF (None Seen) 07/14/23 03:00 Urine Bacteria <20 /HPF (<20) 07/14/23 03:00 Hyaline Casts 0-5 /LPF (None Seen) 07/14/23 03:00 Urine Mucus Slight /HPF (None Seen) 07/14/23 03:00 Urine Yeast (Budding) Trace /HPF (None Seen) H 07/14/23 03:00 Urine Culture Reflexed Reflexed 07/14/23 03:00 Urine Total Protein Trace (Negative) H 07/14/23 03:00 Weight: 148 lb Wound Present: Yes Closed Surgical Incision Present: No Negative Pressure Wound Therapy Present: No Physician Update: Labs reviewed and are stable. She has one more day of COVID-19 isolation. She has 2 stage II ulcers on the gluts. Making fair progress with transfers and ambulation. More confusion today and has a UTI on Levaquin day 3/5. However, the bacteria is on the spectrum of ESBL and she will be switched to Meropenem from Levaquin. 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 Please see the Rehabilitation Signature page for all necessary signatures.
[2023-07-19] MEDS: Meropenem 1,000 MG in NA CHLORIDE 0.9% 100 ML IV SCH (20:06)
[2023-07-19] MEDS: MELATONIN 3 MG TABLET PO PRN (20:07)
[2023-07-19] MEDS: DOCUSATE NA/SENNA CONC 1 TAB PO PRN (20:07)
[2023-07-19] MEDS: ATORVASTATIN 20 MG TAB PO SCH (20:07)
[2023-07-19] MEDS: hydrOXYzine HCL 25 MG TAB PO SCH (20:07)
[2023-07-20] MEDS: LEVOTHYROXINE SOD 0.1 MG TAB PO SCH (06:34)
[2023-07-20] MEDS: PANTOPRAZOLE 40MG TABLET PO SCH (06:34)
[2023-07-20] MEDS: Meropenem 1,000 MG in NA CHLORIDE 0.9% 100 ML IV SCH ×2 (07:37→20:17)
[2023-07-20] MEDS: APIXABAN 2.5 MG TABLET PO SCH ×2 (07:38→20:14)
[2023-07-20] MEDS: ASCORBIC ACID 500 MG TABLET PO SCH (07:38)
[2023-07-20] MEDS: ASPIRIN 81 MG CHEWABLE TABLET PO SCH (07:38)
[2023-07-20] MEDS: CRANBERRY FRUIT EXTRACT 200 MG CAP PO SCH ×2 (07:38→20:14)
[2023-07-20] MEDS: VITAMIN D 400 UNIT TAB PO SCH (07:38)
[2023-07-20] MEDS: AMIODARONE HCL 200 MG TAB PO SCH (07:39)
[2023-07-20] MEDS: POTASSIUM CL SA 10 MEQ TAB PO SCH (07:39)
[2023-07-20] MEDS: GABAPENTIN 300 MG CAP PO SCH ×3 (07:39→20:15)
[2023-07-20] MEDS: ZINC SULFATE 220 MG CAP PO SCH (07:39)
[2023-07-20] MEDS: JUVEN PACKET PO SCH ×2 (07:40→20:00)
[2023-07-20] MEDS: levETIRAcetam 500 MG TAB PO SCH ×2 (07:40→20:15)
[2023-07-20] MEDS: ENSURE HIGH PROTEIN 237 ML CAN PO SCH ×2 (07:40→20:00)
[2023-07-20] MEDS: ONDANSETRON 4 MG (ODT) TAB PO PRN (10:24)
[2023-07-20 11:00] LABS: Absolute Lymphocytes (CBC) 1.3 K/uL (0.7-4.9); Hematocrit 28.6 % (36.0-45.0); Lymphocytes % 20.6 % (15.3-44.8); MCV 104.5 fL (80-100); Platelets 232 thou/uL (152-406); RBC Red Blood Cell Count 2.74 M/uL (3.86-4.86)
[2023-07-20 11:20] LABS: Potassium 4.8 mEq/L (3.5-5.1)
[2023-07-20] MEDS ORDERED: NA CHLORIDE 0.9% 1,000 ML IV SCH (15:00)
--- NOTE | 2023-07-20 17:04 | PN ---
Date of Progress Note: 07/20/2023 Time Of Service: 2:30 p.m. Subjective: Ms. España is still on COVID isolation. She has 1 more day and will be out tomorrow. She denies any fevers, chills, nausea, vomiting, myalgias, arthralgias, rash, headache, weight change . Review of Systems: As noted. No rash, headache, weight change, and is happy anticipating being out of COVID isolation. Physical Examination: Vital Signs: Blood pressure 136/58, pulse 74, respiratory rate 16, temperature 97.5, oxygen saturati on 96%. General: Ms. España is resting in bed, in no acute distress. HEENT: She is normocephalic, atraumatic. Sclerae anicteric. Oropharynx pink, moist. Neck: Supple. Chest: Clear. Heart: Regular. Extremities: Show no significant edema, clubbing, cyanosis. Laboratory Studies: Today, white blood cell count 6.3, hemoglobin 9.7, platelets 232. Chemistry: S odium 131, did decrease from 136 and she did actually receive some normal saline. Potassium 4.8, chl oride 99, BUN 26, creatinine 1.73. Creatinine did increase from 1.44 on the 7th to 1.73. As noted, she is receiving IV hydration now, 1 L of normal saline and that will help to improve her kidney func tion. Calcium 8.2. Magnesium 2.0 and note her urine cultures as noted grew Klebsiella oxytoca that has possible ESBL organism, which is likely to be resistant to ampicillin, aztreonam, cefazolin, Roce phin, piperacillin, cefotaxime and the recommended drug is meropenem and the patient is now on merope nem. X-ray/imaging: No new x-rays or imaging. Medications: Meropenem she receives 1 g every 12 hours, melatonin 3 mg at night, Imodium 2 mg every 4 hours as needed, levothyroxine 0.1 mg daily, Keppra 250 mg twice daily. She has a James packet twi ce daily, ipratropium nebulizer 0.5 mg every 6 hours as needed, Atarax 25 mg at bedtime, gabapentin 3 00 mg 3 times daily, vitamin D3 800 units daily, Tessalon Perles 200 mg 3 times daily, Lipitor 20 mg at bedtime, aspirin 81 mg daily, vitamin C 500 mg daily, Eliquis 2.5 mg daily along with amiodarone 2 00 mg daily, Tylenol 500 mg every 4 hours as needed, and albuterol nebulizer 2.5 mg every 6 hours. Current Functional Status: Today, Ms. España did bed mobility exercises, going from left to right a nd right to left with moderate assistance. She did require maximum verbal cues was able to tolerate multiple attempts at edge of bed sitting. She did attempt to do gait, but felt very dizzy. She was in the bed for quite a bit. She did do supine exercises while in bed. With her occupational therapy , she did transfer to edge of bed with 50% assistance, cuing for encouragement. She did have some co ncerns about her phone and was worried that she was locked up out of her phone, not recalling the cod e. Progress Toward Rehabilitation Goals: So far, Ms. España is making slow progress towards her goals of becoming modified independent with upper and lower body dressing, transferring, toileting, ambulat ing 50 feet with modified independence, going up and down 5 steps with modified independence and perf orming her cognitive functioning with modified independence. Assessment: Ms. España is admitted to the inpatient rehabilitation unit with cystitis, hematuria, a nd baseline cognitive impairment. It is mild. She has debility, has COVID positivity, and is on iso lation. Has a urinary tract infection with ESBL bacteria that is now treated with meropenem. She love s atrial fibrillation, malnutrition, chronic obstructive pulmonary disease. Plan: 1.Continue with physical and occupational therapy along with speech therapy for 3.5 hours, 5/7 days. 2.Switched from Levaquin to meropenem as noted. 3.Amiodarone for atrial fibrillation. 4.Eliquis for DVT prophylaxis. 5.Aspirin for stroke risk reduction. 6.Gabapentin for neuropathy. 7.Synthroid for hypothyroidism. 8.Tramadol and Tylenol for pain. 9.Nebulizers, albuterol and Atrovent for COPD. 10.Melatonin for insomnia. Comorbids That Continue To Impact Rehabilitation Process: Currently, she is still on COVID isolation , but should be out tomorrow. So, Saturday she should be able to have a full participation with eulogio mace, ambulating around the unit, and towards the gym area. Next, she has a cystitis. She has a m eropenem on board for ESBL bacteria. She also was at significant risk of aspiration as she has been in bed for a while and risk of skin breakdown, but she will be mobilizing a lot more once she is off isolation. SADE/PATRIZIA Voice ID: [id number] Report ID: [id number]
[2023-07-20] MEDS: ATORVASTATIN 20 MG TAB PO SCH (20:14)
[2023-07-20] MEDS: TRAZODONE 50 MG TABLET PO PRN (20:15)
[2023-07-20] MEDS: hydrOXYzine HCL 25 MG TAB PO SCH (20:15)
[2023-07-20] MEDS: TRAMADOL HCL 50 MG TAB PO PRN (20:39)
[2023-07-21] MEDS ORDERED: NA CHLORIDE 0.9% 250 ML ONE (06:23)
[2023-07-21] MEDS: LEVOTHYROXINE SOD 0.1 MG TAB PO SCH (06:53)
[2023-07-21] MEDS: PANTOPRAZOLE 40MG TABLET PO SCH (07:32)
[2023-07-21] MEDS: Meropenem 1,000 MG in NA CHLORIDE 0.9% 100 ML IV SCH ×2 (07:33→19:33)
[2023-07-21] MEDS: DOCUSATE NA/SENNA CONC 1 TAB PO PRN ×2 (07:33→19:31)
[2023-07-21] MEDS: ASCORBIC ACID 500 MG TABLET PO SCH (07:34)
[2023-07-21] MEDS: CRANBERRY FRUIT EXTRACT 200 MG CAP PO SCH ×2 (07:34→19:31)
[2023-07-21] MEDS: ASPIRIN 81 MG CHEWABLE TABLET PO SCH (07:34)
[2023-07-21] MEDS: VITAMIN D 400 UNIT TAB PO SCH (07:34)
[2023-07-21] MEDS: levETIRAcetam 500 MG TAB PO SCH ×2 (07:34→19:32)
[2023-07-21] MEDS: APIXABAN 2.5 MG TABLET PO SCH ×2 (07:34→19:32)
[2023-07-21] MEDS: ZINC SULFATE 220 MG CAP PO SCH (07:35)
[2023-07-21] MEDS: GABAPENTIN 300 MG CAP PO SCH ×3 (07:35→19:32)
[2023-07-21] MEDS: AMIODARONE HCL 200 MG TAB PO SCH (07:36)
[2023-07-21] MEDS: POTASSIUM CL SA 10 MEQ TAB PO SCH (07:36)
[2023-07-21] MEDS: JUVEN PACKET PO SCH ×3 (07:37→19:33)
[2023-07-21] MEDS: ENSURE HIGH PROTEIN 237 ML CAN PO SCH ×3 (07:37→19:32)
[2023-07-21] MEDS: ONDANSETRON 4 MG (ODT) TAB PO PRN (12:39)
[2023-07-21] MEDS: ACETAMINOPHEN 500 MG TAB PO PRN (12:39)
[2023-07-21] MEDS: TRAMADOL HCL 50 MG TAB PO PRN ×2 (12:44→19:32)
[2023-07-21] MEDS: hydrOXYzine HCL 25 MG TAB PO SCH (19:32)
[2023-07-21] MEDS: TRAZODONE 50 MG TABLET PO PRN (19:32)
[2023-07-21] MEDS: ATORVASTATIN 20 MG TAB PO SCH (19:32)
[2023-07-22] MEDS: ONDANSETRON 4 MG (ODT) TAB PO PRN (01:23)
[2023-07-22 04:46] LABS: Potassium 4.6 mEq/L (3.5-5.1)
[2023-07-22] MEDS: LEVOTHYROXINE SOD 0.1 MG TAB PO SCH (06:43)
[2023-07-22] MEDS: Meropenem 1,000 MG in NA CHLORIDE 0.9% 100 ML IV SCH ×2 (07:06→19:40)
[2023-07-22] MEDS: PANTOPRAZOLE 40MG TABLET PO SCH (07:06)
[2023-07-22] MEDS: VITAMIN D 400 UNIT TAB PO SCH (07:40)
[2023-07-22] MEDS: GABAPENTIN 300 MG CAP PO SCH ×3 (07:41→19:40)
[2023-07-22] MEDS: CRANBERRY FRUIT EXTRACT 200 MG CAP PO SCH ×2 (07:41→19:39)
[2023-07-22] MEDS: ZINC SULFATE 220 MG CAP PO SCH (07:41)
[2023-07-22] MEDS: ASCORBIC ACID 500 MG TABLET PO SCH (07:41)
[2023-07-22] MEDS: ASPIRIN 81 MG CHEWABLE TABLET PO SCH (07:41)
[2023-07-22] MEDS: APIXABAN 2.5 MG TABLET PO SCH ×2 (07:42→19:40)
[2023-07-22] MEDS: levETIRAcetam 500 MG TAB PO SCH ×2 (07:42→19:39)
[2023-07-22] MEDS: AMIODARONE HCL 200 MG TAB PO SCH (07:44)
[2023-07-22] MEDS: POTASSIUM CL SA 10 MEQ TAB PO SCH (07:44)
[2023-07-22] MEDS: TRAMADOL HCL 50 MG TAB PO PRN ×3 (09:02→19:39)
[2023-07-22] MEDS: hydrOXYzine HCL 25 MG TAB PO SCH (19:39)
[2023-07-22] MEDS: TRAZODONE 50 MG TABLET PO PRN (19:40)
[2023-07-22] MEDS: ATORVASTATIN 20 MG TAB PO SCH (19:40)
--- NOTE | 2023-07-23 02:34 | PN ---
Date of Progress Note: 07/22/2023 Time Of Service: 12:45 p.m. Subjective: Ms. España is doing very well. She is out of COVID isolation. She is, however, very w eak and had orthostatic type symptoms as she has been lying in bed for up to about 10 days, mostly du e to the COVID isolation. She is having GLENDY hose being placed and will have an abdominal binder as w jimy as she has orthostatic type changes likely related again to drop in blood pressure when getting u p. Otherwise, no new complaints. Review of Systems: Again, mild lightheadedness and vertigo when changing position from lying to sitting and sitting to s tanding. Otherwise, no rash, no fevers, no chills. No myalgias, arthralgias. No headaches. Physical Examination: Vital Signs: Blood pressure 119/59, pulse 78, respiratory rate 16, temperature 97.9, oxygen saturati on 93%, weight 134 pounds, height 5 feet 5 inches, BMI 22. General: Ms. España is sitting in a chair having the GLENDY hose placed. She is in no acute distress. HEENT: She is normocephalic, atraumatic. Sclerae anicteric. Oropharynx moist. Neck: Supple. Chest: Clear. Heart: Regular. Extremities: No significant edema or cyanosis. She still has diffuse weakness in the upper and lowe r extremities. Laboratory Studies: No new laboratory studies except electrolytes today did show some improvement in her creatinine from 1.73 on the 9th to 1.33 after some hydration today. Her sodium improved from 13 1 to 134, her BUN improved from 26 to 19, glucose is normal at 88, calcium slightly low at 8.0. X-ray/imaging: No new x-rays or imaging. Medications: She continues meropenem, continuing the antibiotic started on 07/19 for ESBL urinary tr act infection. She is on Synthroid for hypothyroidism, Keppra for her seizure risk reduction, Imodiu m for diarrhea, Ultram for pain. Tramadol for insomnia. She has zinc sulfate for her COVID infectio n. Albuterol nebulizer for shortness of breath. Eliquis 2.5 mg twice daily for stroke and DVT risk reduction along with aspirin 81 mg daily. She has Tessalon Perles for cough, gabapentin for neuropat hic pain. Current Functional Status: Today, she did turning in bed with moderate assistance. Did supine to si t transfers with moderate assistance and sit to stand transfers with maximum assistance. She attempt ed gait training twice, but was unable to take more than 1 step and refused and sat back down. Blood pressures dropped to 79/39 and then 80/41, 2 minutes later. She did have the abdominal binder and T ED hose placed. She subsequently was able to propel a wheelchair 250 feet and another 220 feet with minimum assistance. She did also have some bleeding noted in the left forearm where a bandage was pu lled off that was redressed. With occupational therapy, she was dependent for toilet hygiene, trinity g up and down her clothes, and required encouragement. She fatigues very quickly. She did tolerate 90 minutes of sitting up in a wheelchair. Progress Towards Rehabilitation Goals: Ms. España is making slow progress, although that is improve d after she is off COVID isolation. She is still total to mod assist with many activities of daily l iving and especially with ambulating. She is only able to take 1 step. She is much better mobilizin g with a wheelchair currently. Assessment: Ms. España is an 82-year-old patient admitted to the rehabilitation unit with cystitis with hematuria. She had COVID positivity. She is significantly debilitated. She has ESBL bacteria, now treated with meropenem. She has atrial fibrillation, malnutrition, chronic obstructive pulmonar y disease, neuropathic pain, hypothyroidism, and insomnia. Plan: 1.Continue with physical and occupational therapy for 3 hours a day, 5-7 days. 2.Continue meropenem. 3.Continue amiodarone. 4.Continue Eliquis. 5.Continue aspirin. 6.Continue gabapentin. 7.Continue Synthroid. 8.Continue tramadol. 9.Continue nebulizer and trazodone for insomnia. Comorbids That Continue To Impact Rehabilitation Process: Currently, ESBL urinary tract infection re quiring IV meropenem, that will be completed and she began recovering from that. She does have signi ficant debility after being in bed for 2 weeks secondary to the COVID isolation. LB/MODL Voice ID: [id number] Report ID: [id number]
[2023-07-23] MEDS ORDERED: NA CHLORIDE 0.9% 250 ML ONE (04:22)
[2023-07-23] MEDS: LEVOTHYROXINE SOD 0.1 MG TAB PO SCH (06:26)
[2023-07-23] MEDS: PANTOPRAZOLE 40MG TABLET PO SCH (06:46)
[2023-07-23] MEDS: Meropenem 1,000 MG in NA CHLORIDE 0.9% 100 ML IV SCH ×2 (06:46→19:29)
[2023-07-23] MEDS: TRAMADOL HCL 50 MG TAB PO PRN ×3 (07:18→19:30)
[2023-07-23] MEDS: VITAMIN D 400 UNIT TAB PO SCH (07:23)
[2023-07-23] MEDS: ASPIRIN 81 MG CHEWABLE TABLET PO SCH (07:23)
[2023-07-23] MEDS: levETIRAcetam 500 MG TAB PO SCH ×2 (07:23→19:30)
[2023-07-23] MEDS: CRANBERRY FRUIT EXTRACT 200 MG CAP PO SCH ×2 (07:24→19:30)
[2023-07-23] MEDS: ZINC SULFATE 220 MG CAP PO SCH (07:24)
[2023-07-23] MEDS: POTASSIUM CL SA 10 MEQ TAB PO SCH (07:24)
[2023-07-23] MEDS: APIXABAN 2.5 MG TABLET PO SCH ×2 (07:24→19:30)
[2023-07-23] MEDS: ASCORBIC ACID 500 MG TABLET PO SCH (07:24)
[2023-07-23] MEDS: GABAPENTIN 300 MG CAP PO SCH ×3 (07:24→19:30)
[2023-07-23] MEDS: AMIODARONE HCL 200 MG TAB PO SCH (07:25)
[2023-07-23] MEDS: TRAZODONE 50 MG TABLET PO PRN (19:30)
[2023-07-23] MEDS: ATORVASTATIN 20 MG TAB PO SCH (19:30)
[2023-07-23] MEDS: AMINO ACIDS/PROTEIN HYDROLYS 30 ML LIQUID.PKT PO SCH (19:31)
[2023-07-23] MEDS: hydrOXYzine HCL 25 MG TAB PO SCH (19:31)
--- NOTE | 2023-07-23 20:14 | PN ---
Date of Progress Note: 07/23/2023 Blzw-[id number]-[id number] Progress Note Visit Time Of Service: 1 p.m. Subjective: Ms. España is doing very well. She is happy with her progress today covering about 100 feet. She did take few breaks. She does report some pain in the left thigh above the area where sh e had a spiral groove fracture that is chronic, but still causes some pain, as she ambulates. Review of Systems: Aside from the pain in the left thigh, no fevers, chills, nausea, vomiting, myalgias, arthralgias, ra sh, headache, or weight change. Physical Examination: Vital Signs: Blood pressure 141/62, pulse 68. However, earlier this morning, she had a blood pressu re down to 85/47, pulse 81. She does have GLENDY hose and abdominal binders and that is helping as she ambulates. She is afebrile with good oxygen saturation. General: Ms. España is resting in bed. She is in no acute distress. HEENT: She is normocephalic, atraumatic. Sclerae anicteric. Oropharynx is moist. Neck: Supple. Chest: Clear. Extremities: Show no edema, cyanosis, or clubbing. Neurological: Diffusely weak in upper and lower extremities, but she is getting stronger in terms of her ability to stand on her own and use the arms as she ambulates and she does have a gait belt and has not lost balance ambulating. Laboratory Studies: Her sodium is 134, potassium 4.6, creatinine 1.33, calcium 8.0. X-ray/imaging: No new x-rays or imaging. Medications: Aside from addition of a pain patch in the left thigh, her medications have been review ed and remained unchanged. Current Functional Status: Currently, she ambulated 35 feet with max assist two attempts, covered an other 35 feet, then 20 feet. With wheelchair, she mobilized 350 feet with contact guard assistance. With occupational therapy, bathing was moderate assistance; upper body dressing, maximal assistance; lower body dressing, total assistance required. Progress Towards Rehabilitation Goals: Ms. España is making fair progress overall with rehabilitati on, but she still requires a significant amount of assistance for her transfers that is of maximum as sistance and total assistance for lower body dressing, and mobilizes short distances at a time less t pascual 50 feet, which is less than household distances. She could benefit from extra time in rehabilita tion. Furthermore, she needs 3 more days of IV meropenem for her ESBL infection with Klebsiella oxyt oca. Assessment: Ms. España is an 82-year-old patient in the rehabilitation unit with cystitis and hemat uria. She has ESBL urinary tract infection and is receiving meropenem at the IV antibiotics. She love s atrial fibrillation, malnutrition, chronic obstructive pulmonary disease, hypothyroidism, insomnia, and neuropathic pain. 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 Plan: 1.Continue with physical and occupational therapy 3 hours a day, 5 of 7 days. 2.Continue with meropenem for her urinary tract infection. 3.Continue with amiodarone for rate control. 4.Continue with Eliquis and aspirin for stroke and DVT risk reduction. 5.Continue with gabapentin for neuropathic pain. 6.Continue with Synthroid for hypothyroidism. 7.Tramadol for pain. 8.Continue with trazodone for insomnia. Comorbidities That Continue To Impact Rehabilitation: Currently, she is significantly debilitated an d is requiring some extra time in rehabilitation as she is not able to mobilize household distances, but is able to do well and get there. It should be noted that she was on COVID isolation for 10 days when she got to the unit and could not ambulate out of the room. Now that she is off isolation, she is beginning to make good progress. Further, she has IV antibiotics that need at least 3 more days to c omplete. SADE/MARIFERL Voice ID: [id number] Report ID: [id number]
[2023-07-24] MEDS: LEVOTHYROXINE SOD 0.1 MG TAB PO SCH (07:22)
[2023-07-24] MEDS: VITAMIN D 400 UNIT TAB PO SCH (07:23)
[2023-07-24] MEDS: APIXABAN 2.5 MG TABLET PO SCH ×2 (07:23→20:11)
[2023-07-24] MEDS: POTASSIUM CL SA 10 MEQ TAB PO SCH (07:24)
[2023-07-24] MEDS: AMIODARONE HCL 200 MG TAB PO SCH (07:24)
[2023-07-24] MEDS: ASPIRIN 81 MG CHEWABLE TABLET PO SCH (07:24)
[2023-07-24] MEDS: levETIRAcetam 500 MG TAB PO SCH ×2 (07:24→20:11)
[2023-07-24] MEDS: GABAPENTIN 300 MG CAP PO SCH ×3 (07:24→20:11)
[2023-07-24] MEDS: PANTOPRAZOLE 40MG TABLET PO SCH (07:25)
[2023-07-24] MEDS: LIDOCAINE 4% PATCH TOP SCH (07:25)
[2023-07-24] MEDS: CRANBERRY FRUIT EXTRACT 200 MG CAP PO SCH ×2 (07:25→20:10)
[2023-07-24] MEDS: ASCORBIC ACID 500 MG TABLET PO SCH (07:25)
[2023-07-24] MEDS: ZINC SULFATE 220 MG CAP PO SCH (07:25)
[2023-07-24] MEDS: AMINO ACIDS/PROTEIN HYDROLYS 30 ML LIQUID.PKT PO SCH ×2 (07:26→19:55)
[2023-07-24] MEDS: Meropenem 1,000 MG in NA CHLORIDE 0.9% 100 ML IV SCH ×2 (07:28→19:09)
[2023-07-24] MEDS ORDERED: LIDOCAINE 4% PATCH TOP SCH (08:00)
[2023-07-24] MEDS: TRAMADOL HCL 50 MG TAB PO PRN (08:24)
[2023-07-24] MEDS: ONDANSETRON 4 MG (ODT) TAB PO PRN (11:35)
[2023-07-24] MEDS ORDERED: LIDOCAINE 4% PATCH TOP ONE (13:49)
[2023-07-24] MEDS: TRAZODONE 50 MG TABLET PO PRN (20:10)
[2023-07-24] MEDS: ATORVASTATIN 20 MG TAB PO SCH (20:11)
[2023-07-24] MEDS: hydrOXYzine HCL 25 MG TAB PO SCH (20:11)
--- NOTE | 2023-07-24 20:26 | PN ---
Date of Progress Note: 07/24/2023 Time Of Service: 1 p.m. Subjective: Ms. España is doing better today. She is happy about her therapy. She is ambulating w ell. Denies any significant pain. Denies confusion or other complaints. Review of Systems: No fevers, chills, nausea, vomiting, myalgias, arthralgias, rash. No psychiatric issues. Physical Examination: Vital Signs: Blood pressure 148/66, pulse 71, respiratory rate 16, temperature 97.5, oxygen saturati on 96%. General: Ms. España is resting in bed in between therapy sessions. HEENT: She is normocephalic, atraumatic. Sclerae anicteric. Oropharynx is moist. Neck: Supple. Chest: Clear. No clubbing, cyanosis, or edema. Neurological: No focal findings in face, arm, or leg in terms of strength or sensation. Laboratory Studies: No new laboratory studies since the . X-rays/imaging: No new x-rays. Medications: Medications have been reviewed and remain unchanged. Current Functional Status: Today, she did bed mobility with moderate assistance. [id number] trans fers completed with moderate assistance as well. She did complete 50 feet, 35 feet, and 30 feet and 40 feet gait training with minimum assistance using a rolling walker. She mobilized a wheelchair 250 feet with minimum assistance. She did require frequent rest breaks. With her occupational therapy, supine to sit was done independently using bed rails, wheelchair transfer, maximum assistance requir ed. Progress Towards Rehabilitation Goals: Ms. España is making better progress every day towards her g oals of being able to transfer in and out of the bed with min assist to supervision, to ambulate 250 feet with minimum assist to supervision, to mobilize a wheelchair 500 feet with modified independence , to go up and down 5 steps with min assistance, and to perform all of her cognitive functioning with modified independence. Assessment: Ms. España is an 82-year-old patient admitted to the rehabilitation unit with cystitis and hematuria, which is improving. She has a urinary tract infection and is receiving meropenem intr avenously for her Klebsiella oxytoca infection again, which is an ESBL type bacteria, requiring merop enem. She has comorbidities of hypothyroidism, chronic obstructive pulmonary disease, atrial fibrill ation, malnutrition, peripheral neuropathy, and she also has a spiral groove fracture in the left thi gh. Plan: 1.Continue with physical and occupational therapy for 3 hours a day, 5 of 7 days. 2.Continue with pain patch for spiral groove fracture in the left thigh. 3.Continue with gabapentin, which helps with neuropathic pain. 4.Synthroid for hypothyroidism. 5.Amiodarone for heart rate control. 6.Complete meropenem. Today is the and she will finish by the and actually her discharge is set for next week as she is trending to do very well. Comorbidities That Continue To Impact Rehabilitation: She does require IV antibiotics and she is aga in making much better progress now that she is out of COVID isolation and she did get an extension on her stay to leave on the that is next week. SADE/PATRIZIA Voice ID: [id number] Report ID: [id number]
[2023-07-25 03:35] LABS: Absolute Lymphocytes (CBC) 1.8 K/uL (0.7-4.9); Hematocrit 25.4 % (36.0-45.0); Lymphocytes % 35.1 % (15.3-44.8); MCV 104.5 fL (80-100); MPV 6.6 fL (7.6-11.3); Platelets 189 thou/uL (152-406); RBC Red Blood Cell Count 2.43 M/uL (3.86-4.86)
[2023-07-25 04:09] LABS: Albumin 2.3 g/dL (3.4-5.0); Magnesium 1.9 mg/dL (1.6-2.4); Potassium 4.8 mEq/L (3.5-5.1); Prealbumin 13.1 mg/dL (20-40)
[2023-07-25] MEDS: LEVOTHYROXINE SOD 0.1 MG TAB PO SCH (06:28)
[2023-07-25] MEDS: PANTOPRAZOLE 40MG TABLET PO SCH (06:28)
[2023-07-25] MEDS: AMINO ACIDS/PROTEIN HYDROLYS 30 ML LIQUID.PKT PO SCH ×2 (08:00→19:13)
[2023-07-25] MEDS: AMIODARONE HCL 200 MG TAB PO SCH (08:20)
[2023-07-25] MEDS: ASCORBIC ACID 500 MG TABLET PO SCH (08:20)
[2023-07-25] MEDS: GABAPENTIN 300 MG CAP PO SCH ×3 (08:20→19:13)
[2023-07-25] MEDS: ASPIRIN 81 MG CHEWABLE TABLET PO SCH (08:20)
[2023-07-25] MEDS: CRANBERRY FRUIT EXTRACT 200 MG CAP PO SCH ×2 (08:20→19:12)
[2023-07-25] MEDS: VITAMIN D 400 UNIT TAB PO SCH (08:20)
[2023-07-25] MEDS: APIXABAN 2.5 MG TABLET PO SCH ×2 (08:20→19:13)
[2023-07-25] MEDS: ZINC SULFATE 220 MG CAP PO SCH (08:20)
[2023-07-25] MEDS: POTASSIUM CL SA 10 MEQ TAB PO SCH (08:20)
[2023-07-25] MEDS: TRAMADOL HCL 50 MG TAB PO PRN (08:21)
[2023-07-25] MEDS: levETIRAcetam 500 MG TAB PO SCH ×2 (08:21→19:13)
[2023-07-25] MEDS: ONDANSETRON 4 MG (ODT) TAB PO PRN (08:22)
[2023-07-25] MEDS: Meropenem 1,000 MG in NA CHLORIDE 0.9% 100 ML IV SCH ×2 (08:46→19:11)
[2023-07-25] MEDS: LIDOCAINE 4% PATCH TOP SCH (08:47)
[2023-07-25] MEDS: hydrOXYzine HCL 25 MG TAB PO SCH (19:12)
[2023-07-25] MEDS: TRAZODONE 50 MG TABLET PO PRN (19:12)
[2023-07-25] MEDS: ATORVASTATIN 20 MG TAB PO SCH (19:13)
--- NOTE | 2023-07-25 20:20 | PN ---
Date of Progress Note: 07/25/2023 [id number]-[id number] Progress Note Visit. Time Of Service: 12:55 p.m. Subjective: Ms. España is resting in bed in between therapy sessions. She is doing well. She has no new complaints. Review of Systems: No fevers, chills, nausea, vomiting. No myalgias, arthralgias, or rash. Physical Examination: Vital Signs: Blood pressure 116/55, pulse of 72, respiratory rate is 16, temperature 97.2. She did indicate earlier that when attempted to ambulate, she did have a drop in her blood pressure and she h as abdominal binders and GLENDY hose in place, which are mitigating those symptoms. Laboratory Studies: White blood cell count 5.1, hemoglobin 8.8, platelets 189. Sodium 136, potassiu m 4.8, chloride 104, BUN 14, creatinine 1.21, which improved from 1.33 on the 11th, prealbumin 13.1, albumin 2.3. X-rays/imaging: No new x-rays or imaging. Medications: Medications have been reviewed and remain unchanged. She is continuing the meropenem u ntil next week for her ESBL urinary tract infection. Current Functional Status: Today, she was able to propel a wheelchair on level surfaces with contact guard assistance to minimum assistance covering 250 feet and another 120 feet. She mobilized 50 fee t with minimal assistance with a rolling walker with occupational therapy. Supine to sit was done in dependently with use of handrails. Wheelchair transfer done with moderate assistance and verbal cues . Progress Towards Rehabilitation Goals: Ms. España is making better progress each day and she initia lly had 10 days of COVID-19 isolation and could not exercise or do therapy out of the room. Now she is doing that and is improving on a daily basis. She is continuing IV antibiotics and has had ____ exercising. She is again making overall better progress. Assessment: Ms. España is an 82-year-old patient who is in the rehabilitation unit with cystitis an d hematuria along with extended spectrum beta-lactamase urinary tract infection, for which she is rec eiving meropenem. The bacteria Klebsiella oxytoca is sensitive to meropenem. She has hypothyroidism , chronic obstructive pulmonary disease, atrial fibrillation, malnutrition, peripheral neuropathy, an d a left thigh spiral groove fracture. Plan: 1.Continue with physical and occupational therapy for 3 hours a day, 5 of 7 days. 2.She has multiple medications, have been reviewed and they are continuing on a daily basis to addre ss her comorbid conditions and those are adequately addressed. She does have pain medication on boar d, medication for constipation and insomnia as well. Comorbidities That Continue To Impact Rehabilitation: She will be discharged next week on the a she has IV antibiotics going and she is again beginning to improve, but still not quite ready to go home. She is not yet able to ambulate household distances, but she is very close and we should be a ble to do that with supervision to minimum assistance by next week, Saturday. SADE/PATRIZIA Voice ID: [id number] Report ID: [id number]
[2023-07-26] MEDS: ONDANSETRON 4 MG (ODT) TAB PO PRN ×2 (02:03→08:30)
[2023-07-26] MEDS: LEVOTHYROXINE SOD 0.1 MG TAB PO SCH (07:07)
[2023-07-26] MEDS: PANTOPRAZOLE 40MG TABLET PO SCH (07:08)
[2023-07-26] MEDS: MIDODRINE HCL 5 MG TABLET PO SCH (07:09)
[2023-07-26] MEDS: Meropenem 1,000 MG in NA CHLORIDE 0.9% 100 ML IV SCH ×2 (07:09→19:47)
[2023-07-26] MEDS: AMINO ACIDS/PROTEIN HYDROLYS 30 ML LIQUID.PKT PO SCH ×2 (08:00→19:48)
[2023-07-26] MEDS: LIDOCAINE 4% PATCH TOP SCH (08:27)
[2023-07-26] MEDS: CRANBERRY FRUIT EXTRACT 200 MG CAP PO SCH ×2 (08:28→19:45)
[2023-07-26] MEDS: APIXABAN 2.5 MG TABLET PO SCH ×2 (08:28→19:45)
[2023-07-26] MEDS: VITAMIN D 400 UNIT TAB PO SCH (08:28)
[2023-07-26] MEDS: AMIODARONE HCL 200 MG TAB PO SCH (08:30)
[2023-07-26] MEDS: GABAPENTIN 300 MG CAP PO SCH ×3 (08:30→19:49)
[2023-07-26] MEDS: ASCORBIC ACID 500 MG TABLET PO SCH (08:30)
[2023-07-26] MEDS: ZINC SULFATE 220 MG CAP PO SCH (08:30)
[2023-07-26] MEDS: ASPIRIN 81 MG CHEWABLE TABLET PO SCH (08:30)
[2023-07-26] MEDS: levETIRAcetam 500 MG TAB PO SCH ×2 (08:30→19:46)
[2023-07-26] MEDS: TRAMADOL HCL 50 MG TAB PO PRN (08:31)
[2023-07-26] MEDS: POTASSIUM CL SA 10 MEQ TAB PO SCH (08:31)
--- NOTE | 2023-07-26 13:49 | P.RH.PN ---
Estimated Length of Stay: 18 Expected Discharge Date: 07/30/23 Discharge Disposition Plan: Home Family Support: Yes Vital Signs: Last Vital Signs Temp 96.6 F L 07/26/23 07:25 Pulse 80 07/26/23 07:25 Resp 17 07/26/23 08:31 BP 129/62 07/26/23 07:25 Pulse Ox 95 07/26/23 08:31 Laboratory: Laboratory Last Values WBC 5.10 thou/uL (4.3-10.9) 07/25/23 03:10 RBC 2.43 M/uL (3.86-4.86) L 07/25/23 03:10 Hgb 8.8 g/dL (12.0-15.0) L 07/25/23 03:10 Hct 25.4 % (36.0-45.0) L 07/25/23 03:10 MCV 104.5 fL (80-100) H 07/25/23 03:10 MCH 36.1 pg (27.0-35.0) H 07/25/23 03:10 MCHC 34.5 g/dL (32.0-36.0) 07/25/23 03:10 RDW 16.0 % (12.1-15.2) H 07/25/23 03:10 Plt Count 189 thou/uL (152-406) 07/25/23 03:10 MPV 6.6 fL (7.6-11.3) L 07/25/23 03:10 Neutrophils % 40.6 % (41.7-73.7) L 07/25/23 03:10 Lymphocytes % 35.1 % (15.3-44.8) 07/25/23 03:10 Monocytes % 15.2 % (3.3-12.3) H 07/25/23 03:10 Eosinophils % 7.3 % (0-4.4) H 07/25/23 03:10 Basophils % 1.8 % (0-1.3) H 07/25/23 03:10 Absolute Neutrophils 2.1 K/uL (1.8-8.0) 07/25/23 03:10 Absolute Lymphocytes 1.8 K/uL (0.7-4.9) 07/25/23 03:10 Absolute Monocytes 0.8 K/uL (0.1-1.3) 07/25/23 03:10 Absolute Eosinophils 0.4 K/uL (0-0.5) 07/25/23 03:10 Absolute Basophils 0.1 K/uL (0-0.5) 07/25/23 03:10 Sodium 136 mEq/L (136-145) 07/25/23 03:10 Potassium 4.8 mEq/L (3.5-5.1) 07/25/23 03:10 Chloride 104 mEq/L (98-107) 07/25/23 03:10 Carbon Dioxide 29 mEq/L (21-32) 07/25/23 03:10 Anion Gap 7.8 mEq/L (5.0-15.0) 07/25/23 03:10 BUN 14 mg/dL (7-18) 07/25/23 03:10 Creatinine 1.21 mg/dL (0.55-1.02) H 07/25/23 03:10 Est GFR (CKD-EPI) 44 ml/min (=/>90) L 07/25/23 03:10 Glucose 83 mg/dL (74-106) 07/25/23 03:10 Calcium 8.0 mg/dL (8.5-10.1) L 07/25/23 03:10 Magnesium 1.9 mg/dL (1.6-2.4) 07/25/23 03:10 Albumin 2.3 g/dL (3.4-5.0) L 07/25/23 03:10 Prealbumin 13.1 mg/dL (20-40) L 07/25/23 03:10 Procalcitonin < 0.05 ng/mL (<0.050) 07/18/23 13:56 Urine Color Light-yellow (Yellow) 07/14/23 03:00 Urine Clarity Turbid (Clear) H 07/14/23 03:00 Urine pH 6.5 (5.0-7.0) 07/14/23 03:00 Ur Specific [place] 1.016 (1.005-1.030) 07/14/23 03:00 Glucose (UA)(Auto) Negative (Negative) 07/14/23 03:00 Urine Ketones Negative (Negative) 07/14/23 03:00 Urine Blood Negative (Negative) 07/14/23 03:00 Urine Nitrite Negative (Negative) 07/14/23 03:00 Urine Bilirubin Negative (Negative) 07/14/23 03:00 Urine Urobilinogen Normal (Normal) 07/14/23 03:00 Ur Leukocyte Esterase 500 Brandyn/uL (Negative) H 07/14/23 03:00 Urine RBC <5 /HPF (None Seen) 07/14/23 03:00 Urine WBC >50 /HPF (<5) H 07/14/23 03:00 Urine WBC Clumps Rare /HPF (None Seen) 07/14/23 03:00 Ur Squamous Epith Cells <5 /HPF (None Seen) 07/14/23 03:00 Amorphous Crystals Trace /HPF (None Seen) 07/14/23 03:00 Urine Bacteria <20 /HPF (<20) 07/14/23 03:00 Hyaline Casts 0-5 /LPF (None Seen) 07/14/23 03:00 Urine Mucus Slight /HPF (None Seen) 07/14/23 03:00 Urine Yeast (Budding) Trace /HPF (None Seen) H 07/14/23 03:00 Urine Culture Reflexed Reflexed 07/14/23 03:00 Urine Total Protein Trace (Negative) H 07/14/23 03:00 Weight: 134 lb 11.2 oz Wound Present: Yes Closed Surgical Incision Present: No Negative Pressure Wound Therapy Present: No Physician Update: Labs reviewed and are stable. She is continuing mereopenum for ESBL UTI. She has malnutrition and is on protein supplementation. Walked 120' total with min assistance, at most 50' at a time. Min assistance with transfers to chair, walker and toilet. 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 Please see the Rehabilitation Signature page for all necessary signatures.
[2023-07-26] MEDS: ENSURE CLEAR 200 ML CAN PO SCH (19:46)
[2023-07-26] MEDS: ATORVASTATIN 20 MG TAB PO SCH (19:48)
[2023-07-26] MEDS: hydrOXYzine HCL 25 MG TAB PO SCH (19:48)
[2023-07-26] MEDS: TRAZODONE 50 MG TABLET PO PRN (19:50)
[2023-07-27] MEDS: LEVOTHYROXINE SOD 0.1 MG TAB PO SCH (05:22)
[2023-07-27] MEDS: TRAMADOL HCL 50 MG TAB PO PRN ×3 (05:22→20:08)
[2023-07-27] MEDS: PANTOPRAZOLE 40MG TABLET PO SCH (06:56)
[2023-07-27] MEDS: Meropenem 1,000 MG in NA CHLORIDE 0.9% 100 ML IV SCH ×2 (06:56→20:10)
[2023-07-27] MEDS: MIDODRINE HCL 5 MG TABLET PO SCH (06:57)
[2023-07-27] MEDS: ZINC SULFATE 220 MG CAP PO SCH (07:40)
[2023-07-27] MEDS: VITAMIN D 400 UNIT TAB PO SCH (07:40)
[2023-07-27] MEDS: LIDOCAINE 4% PATCH TOP SCH (07:40)
[2023-07-27] MEDS: levETIRAcetam 500 MG TAB PO SCH ×2 (07:41→20:08)
[2023-07-27] MEDS: CRANBERRY FRUIT EXTRACT 200 MG CAP PO SCH ×2 (07:41→20:09)
[2023-07-27] MEDS: APIXABAN 2.5 MG TABLET PO SCH ×2 (07:41→20:09)
[2023-07-27] MEDS: ASPIRIN 81 MG CHEWABLE TABLET PO SCH (07:42)
[2023-07-27] MEDS: POTASSIUM CL SA 10 MEQ TAB PO SCH (07:42)
[2023-07-27] MEDS: ASCORBIC ACID 500 MG TABLET PO SCH (07:42)
[2023-07-27] MEDS: AMIODARONE HCL 200 MG TAB PO SCH (07:42)
[2023-07-27] MEDS: ENSURE CLEAR 200 ML CAN PO SCH ×2 (07:42→20:09)
[2023-07-27] MEDS: GABAPENTIN 300 MG CAP PO SCH ×3 (07:42→20:09)
[2023-07-27] MEDS: AMINO ACIDS/PROTEIN HYDROLYS 30 ML LIQUID.PKT PO SCH ×2 (07:43→20:00)
[2023-07-27] MEDS: TRAZODONE 50 MG TABLET PO PRN (20:09)
[2023-07-27] MEDS: ATORVASTATIN 20 MG TAB PO SCH (20:09)
[2023-07-27] MEDS: hydrOXYzine HCL 25 MG TAB PO SCH (20:09)
[2023-07-28] MEDS ORDERED: NA CHLORIDE 0.9% 250 ML ONE (01:02)
[2023-07-28] MEDS: LEVOTHYROXINE SOD 0.1 MG TAB PO SCH (06:45)
[2023-07-28] MEDS: MIDODRINE HCL 5 MG TABLET PO SCH (06:45)
[2023-07-28] MEDS: PANTOPRAZOLE 40MG TABLET PO SCH (06:45)
[2023-07-28] MEDS: Meropenem 1,000 MG in NA CHLORIDE 0.9% 100 ML IV SCH ×2 (07:20→19:00)
[2023-07-28] MEDS: ENSURE CLEAR 200 ML CAN PO SCH ×2 (07:21→18:59)
[2023-07-28] MEDS: LIDOCAINE 4% PATCH TOP SCH (07:21)
[2023-07-28] MEDS: GABAPENTIN 300 MG CAP PO SCH ×3 (07:22→18:59)
[2023-07-28] MEDS: levETIRAcetam 500 MG TAB PO SCH ×2 (07:22→18:59)
[2023-07-28] MEDS: VITAMIN D 400 UNIT TAB PO SCH (07:22)
[2023-07-28] MEDS: CRANBERRY FRUIT EXTRACT 200 MG CAP PO SCH ×2 (07:22→18:58)
[2023-07-28] MEDS: ASCORBIC ACID 500 MG TABLET PO SCH (07:23)
[2023-07-28] MEDS: APIXABAN 2.5 MG TABLET PO SCH ×2 (07:23→18:59)
[2023-07-28] MEDS: ASPIRIN 81 MG CHEWABLE TABLET PO SCH (07:23)
[2023-07-28] MEDS: ZINC SULFATE 220 MG CAP PO SCH (07:23)
[2023-07-28] MEDS: AMIODARONE HCL 200 MG TAB PO SCH (07:24)
[2023-07-28] MEDS: POTASSIUM CL SA 10 MEQ TAB PO SCH (07:24)
[2023-07-28] MEDS: AMINO ACIDS/PROTEIN HYDROLYS 30 ML LIQUID.PKT PO SCH ×3 (07:26→19:00)
[2023-07-28] MEDS: LOPERAMIDE HCL 2 MG CAPSULE PO PRN ×2 (12:54→18:01)
[2023-07-28] MEDS: TRAZODONE 50 MG TABLET PO PRN (18:58)
[2023-07-28] MEDS: hydrOXYzine HCL 25 MG TAB PO SCH (18:58)
[2023-07-28] MEDS: TRAMADOL HCL 50 MG TAB PO PRN (18:59)
[2023-07-28] MEDS: ATORVASTATIN 20 MG TAB PO SCH (18:59)
--- NOTE | 2023-07-28 19:00 | PN ---
Date of Progress Note: 07/28/2023 Time Of Service: 1:30 p.m. Subjective: Ms. España is resting in bed. She is quite happy with how she is doing. She has extra days to complete therapy and receive her meropenem for ESBL urinary tract infection. Review of Systems: No significant fevers, chills, nausea, vomiting, myalgias, arthralgias, rash, headache, weight change . No psychiatric issues. No other issues. Physical Examination: Vital Signs: Blood pressure 123/59, pulse of 76, that is lying. When sitting, blood pressure 98/57, pulse of 82; and after standing, blood pressure 100/57, pulse of 101. General: She was mildly symptomatic. HEENT: Otherwise, normocephalic, atraumatic. Sclerae anicteric. Oropharynx moist. Neck: Supple. Chest: Clear. Extremities: She does have arthritic changes in the interphalangeal joints in the hands and at the w rist. Laboratory Studies: No new laboratory studies. X-rays/imaging: No new x-rays or imaging. Medications: Have been reviewed and remained unchanged. Current Functional Status: With occupational therapy, she did therapeutic exercises with 2-pound martin els, 2 sets of 10 in 3 planes. She did ask her therapist to remain in the room while doing therapy. Today, bilateral seated lower extremity exercises 15 sets twice. She did perform rolling right-to-l eft, [id number] with minimal assistance. Supine to sit with moderate assistance. Stand pivot tra nsfers from bed to wheelchair with moderate assistance. Completed [id number] again with minimum as sistance. Progress Towards Rehabilitation Goals: Ms. España is making better progress each day towards her go als of becoming modified independence with her transfers from chair to bed to toilet to commode, to b e able to mobilize with a wheelchair with modified independence and to begin to ambulate household di stances with supervision. Assessment And Plan: Ms. España is an 82-year-old patient in the rehabilitation unit with cystitis and hematuria which is resolving. She is currently treated with meropenem for Klebsiella oxytoca and she will complete her treatment this week and be ready for discharge by mid week. She has hypothyro idism, chronic obstructive pulmonary disease, atrial fibrillation, malnutrition, peripheral neuropath y, and the left femur spiral groove fracture that is healed. Plan: 1.Continue physical and occupational therapy for 3 hours a day, 5 of 7 days. 2.She will continue with her current medications including Keppra 250 mg twice daily for seizures, g abapentin 300 mg 3 times daily for neuropathy, atorvastatin 20 mg daily for dyslipidemia, levothyroxi ne 0.1 mg daily for hypothyroidism, midodrine 5 mg daily for autonomic dysfunction. Continue tramado l, zinc sulfate, trazodone for insomnia. Continue amiodarone for heart rate control and nebulizers i ncluding albuterol and Atrovent. Comorbidities That Continue To Impact Rehabilitation: Currently, she is finishing up her IV meropene m and Physical Therapy is working around that. However, she still is significantly debilitated and w ould like to require aggressive therapy to continue to improve once she is discharged from the count includes the [facility] ent rehabilitation unit but she should not require ongoing IV antibiotics at this point. SADE/PATRIZIA Voice ID: [id number] Report ID: [id number]
[2023-07-29] MEDS: TRAMADOL HCL 50 MG TAB PO PRN ×2 (04:54→08:36)
[2023-07-29] MEDS: LEVOTHYROXINE SOD 0.1 MG TAB PO SCH (05:00)
[2023-07-29] MEDS: MIDODRINE HCL 5 MG TABLET PO SCH (06:39)
[2023-07-29] MEDS: PANTOPRAZOLE 40MG TABLET PO SCH (06:40)
[2023-07-29] MEDS: Meropenem 1,000 MG in NA CHLORIDE 0.9% 100 ML IV SCH (07:05)
[2023-07-29] MEDS: GABAPENTIN 300 MG CAP PO SCH ×3 (07:26→19:27)
[2023-07-29] MEDS: LIDOCAINE 4% PATCH TOP SCH (07:26)
[2023-07-29] MEDS: levETIRAcetam 500 MG TAB PO SCH ×2 (07:26→19:27)
[2023-07-29] MEDS: VITAMIN D 400 UNIT TAB PO SCH (07:26)
[2023-07-29] MEDS: APIXABAN 2.5 MG TABLET PO SCH ×2 (07:26→19:28)
[2023-07-29] MEDS: POTASSIUM CL SA 10 MEQ TAB PO SCH (07:27)
[2023-07-29] MEDS: AMIODARONE HCL 200 MG TAB PO SCH (07:27)
[2023-07-29] MEDS: ZINC SULFATE 220 MG CAP PO SCH (07:27)
[2023-07-29] MEDS: CRANBERRY FRUIT EXTRACT 200 MG CAP PO SCH ×2 (07:27→19:28)
[2023-07-29] MEDS: ASPIRIN 81 MG CHEWABLE TABLET PO SCH (07:27)
[2023-07-29] MEDS: ASCORBIC ACID 500 MG TABLET PO SCH (07:27)
[2023-07-29] MEDS: ENSURE CLEAR 200 ML CAN PO SCH ×2 (07:40→19:28)
[2023-07-29] MEDS: AMINO ACIDS/PROTEIN HYDROLYS 30 ML LIQUID.PKT PO SCH ×2 (07:41→19:28)
[2023-07-29] MEDS: ONDANSETRON 4 MG (ODT) TAB PO PRN (07:44)
[2023-07-29 14:29] VITALS: O2SAT 96
[2023-07-29] MEDS: hydrOXYzine HCL 25 MG TAB PO SCH (19:27)
[2023-07-29] MEDS: TRAZODONE 50 MG TABLET PO PRN (19:28)
[2023-07-29] MEDS: ATORVASTATIN 20 MG TAB PO SCH (19:28)
--- NOTE | 2023-07-30 00:22 | PN ---
Date of Progress Note: 07/29/2023 Time Of Service: 1 p.m. Subjective: Ms. España is doing well. She is happy about being discharged home tomorrow and notes she completed her antibiotics and does not require more antibiotics for her urinary tract infection. Review of Systems: No fevers, chills, nausea, vomiting, myalgias, or arthralgias. No dysuria, pyuria. No issues with u rination. Physical Examination: Vital Signs: Blood pressure 115/56, pulse of 74, respiratory rate 16, temperature 97.5, oxygen satur ation 94%. General: Ms. Espaañ is resting in bed. She just finished lunch. She is in no acute distress. Neurologic: She has no focal deficits in terms of her examination improved weakness in the upper and lower extremities. Arthritic changes in her hands are present and been noted. Laboratory Studies: No new laboratory studies. X-rays/imaging: No new x-rays or imaging. Medications: Her medications have been reviewed and remained unchanged. Current Functional Status: Today, she did require assistance with activities of daily living. In te rand of her transfers, she did do 15 sets of strengthening exercises in the core. Upper body dressing done with supervision, lower body dressing with contact guard assistance. Today, she ambulated 30 f eet 5 times with contact guard assistance. She mobilized wheelchair 100 steps 5 feet, 175 feet with rest breaks with supervision. Progress Towards Rehabilitation Goals: Ms. España is made fair overall progress towards rehabilitat ion goals. However, she will require continued physical and occupational therapy after discharge whe n she is back to her home environment that has been set up and she will have ongoing therapy via Home Health. Assessment: Ms. España is an 82-year-old patient in the rehabilitation unit with cystitis and hemat uria. She has a urinary tract infection and that is treated. She has atrial fibrillation, chronic o bstructive pulmonary disease, hypothyroidism, malnutrition, peripheral neuropathy, and a chronic left femur spiral groove fracture. Plan: 1.She will be ready for discharge in the morning. 2.She will continue with all of her comorbid condition medications including atorvastatin, Keppra, l evothyroxine, gabapentin, midodrine for pressure support. Zinc sulfate, trazodone, and amiodarone al karen with her nebulizers. Comorbidities That Continue To Impact The Rehabilitation Process: She has now completed her IV merop enem for her Klebsiella oxytoca infection and she has done well regarding that. She is happy to be d ischarging home and will continue therapy via Home Health. NAKIA Voice ID: [id number] Report ID: [id number]
[2023-07-30] MEDS: LEVOTHYROXINE SOD 0.1 MG TAB PO SCH (06:54)
[2023-07-30] MEDS: MIDODRINE HCL 5 MG TABLET PO SCH (06:54)
[2023-07-30] MEDS: PANTOPRAZOLE 40MG TABLET PO SCH (06:54)
[2023-07-30 07:07] VITALS: BP 132/61; TEMP 96.6
[2023-07-30] MEDS: VITAMIN D 400 UNIT TAB PO SCH (07:11)
[2023-07-30] MEDS: ENSURE CLEAR 200 ML CAN PO SCH (07:11)
[2023-07-30] MEDS: ASCORBIC ACID 500 MG TABLET PO SCH (07:12)
[2023-07-30] MEDS: CRANBERRY FRUIT EXTRACT 200 MG CAP PO SCH (07:12)
[2023-07-30] MEDS: levETIRAcetam 500 MG TAB PO SCH (07:12)
[2023-07-30] MEDS: LIDOCAINE 4% PATCH TOP SCH (07:12)
[2023-07-30] MEDS: POTASSIUM CL SA 10 MEQ TAB PO SCH (07:13)
[2023-07-30] MEDS: ASPIRIN 81 MG CHEWABLE TABLET PO SCH (07:13)
[2023-07-30] MEDS: APIXABAN 2.5 MG TABLET PO SCH (07:13)
[2023-07-30] MEDS: ZINC SULFATE 220 MG CAP PO SCH (07:13)
[2023-07-30] MEDS: GABAPENTIN 300 MG CAP PO SCH (07:14)
[2023-07-30] MEDS: AMIODARONE HCL 200 MG TAB PO SCH (07:14)
[2023-07-30] MEDS: AMINO ACIDS/PROTEIN HYDROLYS 30 ML LIQUID.PKT PO SCH (07:15)
[2023-07-30] MEDS: TRAMADOL HCL 50 MG TAB PO PRN (09:13)
[2023-07-30] MEDS: LOPERAMIDE HCL 2 MG CAPSULE PO PRN (09:13)
== END 2023-07-30 10:40 | disposition home health service (06) | DRG 689 ==
LOC: 5TH 23:15
PROVIDERS: ADMIT Psychiatry & Neurology Neurology with Special Qualifications in Child Neurology; ATTEND Psychiatry & Neurology Neurology with Special Qualifications in Child Neurology
DX: N30.01 Acute cystitis with hematuria (principal); U07.1 COVID-19; E46 Unspecified protein-calorie malnutrition; S72.92XD Unspecified fracture of left femur, subsequent encounter for closed fracture with routine healing; L89.152 Pressure ulcer of sacral region, stage 2; B96.1 Klebsiella pneumoniae [K. pneumoniae] as the cause of diseases classified elsewhere; R32 Unspecified urinary incontinence; R53.81 Other malaise; M19.90 Unspecified osteoarthritis, unspecified site; J45.909 Unspecified asthma, uncomplicated; I48.91 Unspecified atrial fibrillation; I50.9 Heart failure, unspecified; J44.9 Chronic obstructive pulmonary disease, unspecified; I25.10 Atherosclerotic heart disease of native coronary artery without angina pectoris; F32.A Depression, unspecified; I10 Essential (primary) hypertension; E03.9 Hypothyroidism, unspecified; G40.909 Epilepsy, unspecified, not intractable, without status epilepticus; G62.9 Polyneuropathy, unspecified; Z86.73 Personal history of transient ischemic attack (TIA), and cerebral infarction without residual deficits; Z68.24 Body mass index [BMI] 24.0-24.9, adult
CPT/HCPCS: 36415; 71045; 80048; 81001; 82040; 83735; 84132; 84134; 84145; 85025; 87077; 87086; 87088; 87186; 97110; 97116; 97124; 97161; 97165; 97530; 97542; J2001; J2185; J7030; J7050; J7613; J7644; Q0162